=== PATIENT | male | born 1960 | race Caucasian/White ===

== ENCOUNTER 2023-12-26 01:51 | Outpatient (CLI) | payer MEDICARE, BC, SELFPAY ==
--- NOTE | 2023-12-26 07:15 | DI.RAD_ITS ---
Exam(s) XR SHOULDER RT COMPLETE 2+V EXAM: XR SHOULDER RT COMPLETE 2+V CLINICAL HISTORY: Check for AC separation,shoulder injury,[id number]. TECHNIQUE: 2D digital imaging was performed. COMPARISON: No exams were available for comparison FINDINGS: Four views Evidence of acute fracture or dislocation or abnormal soft tissue calcifications. There are mild-mod erate degenerative changes in the AC joint. Mild diminution of the subacromial space. There are min imal degenerative changes in the glenohumeral joint. No osteophytes. Bone density normal. No osseo us lesions. Bone density normal. No osseous lesions. IMPRESSION: Mild degenerative changes as above. DATA REPOSITORY: RADIATION DOSE DELIVERED:
== END 2023-12-26 02:11 ==
LOC: DI 01:52
PROVIDERS: PCP Family Medicine; Visit Provider Family Medicine
DX: S49.91XA Unspecified injury of right shoulder and upper arm, initial encounter (principal); X58.XXXA Exposure to other specified factors, initial encounter
CPT/HCPCS: 73030

== ENCOUNTER 2024-02-28 16:35 | Outpatient (REF) | payer MEDICARE, BC, SELFPAY ==
--- OUTSIDE RECORDS SUMMARY | 2024-02-28 16:39 | XMS_ITS | Encounter Summary ---
Author Organization [facility] Address [address] [place] [address] Care Team Providers Care Cottage Parent Name Role Phone Jason Batres MD Primary Care Provi margarita Alexus De La O RN Unavailable Unavailable Reason for Visit * Reason Onset Date Comments Appointment Related 06/18/2023 Encounter Details Date Type Department Care Team (Late st Contact Info) Description 06/18/2023 Telephone [facility] - [address] [address] Elie Betancourt DPM [address] [place] [phone] Appointment Related Social History Tobacco Use Types Packs/Day Years Used Date Smoking Tobacco: Never Smokeless Tobacco: Former Chew Alcohol Use Standard Drinks/Week Comments No 0 (1 standard drink = 0.6 oz pur e alcohol) Overall Financial Resource Strain (CARDIA) Answe r Date Recorded How hard is it for you to pa y for the very basics like food, housing, medical care, and heating? Not very hard 05/02/2022 PHQ-2 Answer Date Recorded PHQ-2 SUBTOTAL 1 10/04/2019 Hunger Vital Sign Answer Date Recorded Within the past 12 months, y ou worried that your food would run out before you got the money to buy more. Never true 05/02/19 23 Within the past 12 months, t he food you bought just didn't last and you didn't have money to get more. Never true 05/02/2022 PRAPARE - Transportation Answer Date Re corded In the past 12 months, has l ack of transportation kept you from medical appointments or from getting medications? No 04/06 In the past 12 months, has l ack of transportation kept you from meetings, work, or from getting things needed for daily living? No 05/02/2022 Housing Stability Vital Sign Answer Khadar e Recorded In the last 12 months, was t here a time when you were not able to pay the mortgage or rent on time? No 05/02/2022 In the last 12 months, how many places have you lived? 3 05/02/2022 In the last 12 months, was t here a time when you did not have a steady place to sleep or slept in a alf (including now)? No 05/02/2022 Interpersonal Safety Answer Date Record ed Physically Hurt Never 10/05/2019 Verbally Threaten Not on file 10/05/2019 Sex and Gender Information Value Date Recorded Sex Assigned at Male 06/12/2023 11:45 EDT Legal Sex Male 18:05 EST Gender Identity Male 10/03/2019 21:06 EDT Sexual Orientation Straight 06/12/2023 11 :45 EDT documented as of this encounter Functional Status * Are you deaf or do you have serious difficulty hearing? Answer Date of Assessment Author No 11/20/2021 20:00 Chelsea Kwon RN * Are you blind or do you have serious difficulty seeing, even when wearing glasses? Answer Date of Assessment Author No 11/20/2021 20:00 Chelsea Kwon RN * Do you have serious difficulty walking or climbing stairs? (5 years old or older) Answer Date of Assessment Author Yes 11/20/2021 20:00 Chelsea Kwon RN * Do you have difficulty dressing or bathing? (5 years old or older) Answer Date of Assessment Author Yes 11/20/2021 20:00 Chelsea Kwon RN * Because of a physical, mental, or emotional condition, do you have difficulty doing errands alone such as visiting a doctor's office or shopping? (15 years old or older) Answer Date of Assessment Author Yes 11/20/2021 20:00 EDT Chelsea Nair, RN documented as of this encounter Mental Status * Because of a physical, mental, or emotional condition, do you have serious difficulty concentrating, remembering, or making decisions? (5 years old or older) Answer Entry Date Author No 11/20/2021 20:00 EDT Chelsea Nair RN documented in this encounter Miscellaneous Notes * Telephone Encounter - Leslie Padilla RN - 06/18/2023 0953 EDT Spoke with patient. Appointment scheduled. * Telephone Encounter - Marjorie Mason - 06/18/2023 0832 EDT Reason for Call: Appointment Related Summary: Patient scheduled for a f/u left foot ulcer today he needs a couple day notice for transportation service needs his apt today r/s Appointment Offered? No Marjorie Mason 06/18/2023 8:32 documented in this encounter Plan of Treatment Not on file documented as of this encounter Visit Diagnoses Not on filedocumented in this encounter Care Teams Cottage Parent Relationship Specialty Start Date End Date Jason Batres MD [address] [place] [address] PCP - General 07/27/11 12/31/23 Alexus De La O, electro mechanical engineer 04/18/22 08/13/23 documented as of this encounter
--- OUTSIDE RECORDS SUMMARY | 2024-02-28 16:39 | XMS_ITS | Encounter Summary ---
Author Organization [facility] Address [address] [place] [address] Care Team Providers Care Three Knife Trimmer Name Role Phone Jason Batres MD Primary Care Provi margarita Reason for Visit * Reason Comments Follow-up Right BKA Encounter Details Date Type Department Care Team (Latest Contact Info) Description 12/07/2023 11:00 EDT Office Visit [facility] Physical Medicine & Rehabilitation [place] [address] Arianne Gonzalez MD [address] [place] [phone] Below-knee amputation of right lower extremity, subsequent encounter ([facility] (Primary Dx); Wound of right lower extremity, subsequent encounter Social History Tobacco Use Types Packs/Day Years [...] the money to buy more. Never true 02/28/20 23 Within the past 12 months, t [...] place to sleep or slept in a detention (including now)? No 05/02/2022 Interpersonal Safety Answer [...] Assessment Author Yes 11/20/2021 20:00 EDT Chelsea Nair RN documented as of this encounter Mental Status * Because of a physical, mental, or emotional condition, do you have serious difficulty concentrating, remembering, or making decisions? (5 years old or older) Answer Entry Date Author No 11/20/2021 20:00 EDT Chelsea Nair RN documented in this encounter Progress Notes * Arianne Gonzalez MD - 12/07/2023 1100 EDT Jeff Castillo Tyler Date of Visit: 12/07/2023 Chief Complaint Patient presents with Follow-up Right BKA HPI: Jeff returns for wound check. He was last seen in this clinic on 10/18/2023, and unfortunately missed an appointment on 11/15/2023. Today he reports that he has continued to minimize wear of his prosthesis, putting it on today for van transfers only. He had often preferred to wear it for bipedal pushoff in his wheelchair, but has been avoiding that as well, finding one foot generally adequate, even for navigating steep hills near his apartment, which he tries to do daily for exercise. He otherwise feels well today without acute issues or concerns. 12pt review of systems was completed and negative except as above. PMH, PSH, SH, FH reviewed in medical record. Current Outpatient Medications on File Prior to Visit Medication Sig Dispense Refill acetaminophen (TYLENOL) 500 mg tablet Take 2 Tablets by mouth every 6 hours. 240 Tablet 0 apixaban (ELIQUIS) 5 mg tablet Take 1 Tablet by mouth 2 times daily. 180 Tablet 3 atorvastatin (LIPITOR) 20 mg tablet Take 1 Tablet by mouth daily. 90 Tablet 3 bisacodyL (DULCOLAX) [address] 1 Suppository rectally as needed for Constipation. 30 Each 0 blood glucose (FREESTYLE TEST) test strips 1 Strip by misc (non-drug; combo route) route 3 times daily. 100 Each 0 blood glucose meter (FREESTYLE FREEDOM LITE) Test FS BID. 1 Each 0 blood glucose test strips 1 Strip by misc (non-drug; combo route) route 4 times daily. One touch verio flex 100 Each 2 cholecalciferol, Vitamin D3, 50 mcg (2,000 unit) tablet Take 1 Tablet by mouth at bedtime. 30 Tablet 0 clotrimazole (LOTRIMIN) 1 % cream Apply to affected area BID until resolved 45 g 1 fluocinonide (LIDEX) 0.05 % cream Apply to affected area on chest BID x 2 weeks 30 g 0 FREESTYLE FREEDOM LITE Use as directed as needed (glucose monitoring). 1 Each 0 gabapentin (NEURONTIN) 300 mg capsule Take 1 Capsule by mouth 3 times daily. 270 Capsule 3 insulin aspart U-100 (NOVOLOG FLEXPEN) 100 unit/mL (3 mL) injectable pen Inject 18 Units into the skin 3 times daily with meals. 15 mL 11 insulin glargine 100 unit/mL (3 mL) injection pen Inject 55 Units into the skin at bedtime. 15 mL 11 insulin pen needles 31G x 5/16 Use as directed daily 100 Each 3 lancets Test BID 100 Each 1 levothyroxine (SYNTHROID) 112 mcg tablet Take 1 Tablet by mouth daily. 90 Tablet 3 losartan (COZAAR) 25 mg tablet Take 1 Tablet by mouth daily. 90 Tablet 3 magnesium oxide (MAG-OX) 400 mg (241.3 mg magnesium) tablet Take 1 Tablet by mouth daily. 30 Tablet0 metFORMIN (GLUCOPHAGE) 500 mg tablet TAKE TWO TABLETS BY MOUTH TWICE DAILY WITH BREAKFAST AND DINNER 120 Tablet 2 methocarbamoL (ROBAXIN) 500 mg tablet Take 1 Tablet by mouth every 8 hours as needed for Pain or Muscle Spasms. 90 Tablet 3 oxyCODONE (ROXICODONE) 5 mg immediate release tablet Take 1 Tablet by mouth 2 times daily as neededfor Pain. Daily Max: 10 mg 10 Tablet 0 pantoprazole (PROTONIX) 40 mg tablet Take 1 Tablet by mouth daily before breakfast. 90 Tablet 3 sertraline (ZOLOFT) 50 mg tablet Take 1 Tablet by mouth daily. 90 Tablet 3 TAMSulosin (FLOMAX) 0.4 mg capsule Take 1 Capsule by mouth daily. 30 Capsule 2 No current facility-administered medications on file prior to visit. No Known Allergies EXAM: General: Well-nourished and well developed. No acute distress. HEENT: NCAT, eyelids and conjunctiva normal, external ears normal, normal hearing to voice Resp: Normal respiratory rhythm and depth Skin: R TTA with well-adhered eschar over distal callus. Clean, dry, without discharge or drainage.Remainder of residual limb skin intact. Psych: Appropriate affect MSK/Neuro: R TTA nontender. Circumference 36cm over widest distal margin, 37cm over patellar tendon. Short-term memory loss. Seated in manual WC, not wearing prosthesis. Gait not assessed. ASSESSMENT/PLAN: Jeff is a 62-year-old male s/p R TTA 12/29/2020 for chronic osteomyelitis in the setting of type 2diabetes mellitus who has a slowly healing distal residual limb wound, now closed with a small but centrally well-adhered eschar. He should continue to avoid use of the prosthesis as much as possibleuntil the eschar falls off and the skin beneath is fully healed. He is making good progress. Anticipate the eschar could fall off within 1-2 weeks. Will plan to follow-up in this clinic in approximately 3 weeks, sooner if new questions or concerns arise. Patient indicated understanding and agreement with plan. All questions answered. I spent a total of 40 minutes in the care of this patient on the date of this encounter including review of medical records, history, evaluation, counseling, coordination of care, and documentation. Arianne Gonzalez MD Physical Medicine and Rehabilitation documented in this encounter Plan of Treatment Not on file documented as of this encounter Visit Diagnoses Diagnosis Below-knee amputation of right lower extremity, subsequent encounter ([facility])- Primary Wound of right lower extremity, subsequent encounter documented in this encounter Care Teams Three Knife Trimmer Relationship Specialty Start Date End Date Jason Batres MD [address] [place] [id number] PCP - General 07/27/11 12/31/23 documented as of this encounter
--- OUTSIDE RECORDS SUMMARY | 2024-02-28 16:39 | XMS_ITS | Encounter Summary ---
Author Organization [facility] Address [address] [place] [address] Care Team Providers Care University Relations Recruiter Name Role Phone Jason Batres MD Primary Care Provi margarita Alexus De La O RN Unavailable Unavailable Reason for Visit * Reason Onset Date Comments Medications Refill 07/16/2023 Encounter Details Date Type Department Care Team (Late st Contact Info) Description 07/16/2023 Refill Terry Batres MD [address] [phone] Constance Briones, RN Medications Refill Social History Tobacco Use Types Packs/Day Years [...] place to sleep or slept in a half-way (including now)? No 05/02/2022 Interpersonal Safety Answer [...] Author Yes 11/20/2021 20:00 Chelsea Kwon RN documented as of this encounter Mental Status * Because of a physical, mental, or emotional condition, do you have serious difficulty concentrating, remembering, or making decisions? (5 years old or older) Answer Entry Date Author No 11/20/2021 20:00 EDT Chelsea Nair RN documented in this encounter Ordered Prescriptions Prescription Sig Dispense Quantity Refills Last Filled Start Date End Date insulin pen needles 31G x 5/16 Use as directed daily 100 Each 3 07/16/2023 documented in this encounter Plan of Treatment Not on file documented as of this encounter Visit Diagnoses Not on filedocumented in this encounter Care Teams University Relations Recruiter Relationship Specialty Start Date End Date Jason Batres MD [address] [place] [address] PCP - General 07/27/11 12/31/23 Alexus De La O, videotape editor 04/18/22 08/13/23 documented as of this encounter
--- OUTSIDE RECORDS SUMMARY | 2024-02-28 16:39 | XMS_ITS | Encounter Summary ---
Author Organization [facility] Address [address] [place] [address] Care Team Providers Care Diver Helper Name Role Phone Jason Batres MD Primary Care Provi margarita Reason for Visit * Reason Comments Follow-up RIGHT BKA Encounter Details Date Type Department Care Team (Latest Contact Info) Description 09/27/2023 13:00 EDT Office Visit [facility] Physical Medicine & Rehabilitation - [address] [address] Arianne Gonzalez MD [address] [place] [phone] Below-knee amputation of right lower extremity, subsequent encounter ([facility]) (Primary Dx); Wound of right lower extremity, initial encounter Social History Tobacco Use Types Packs/Day [...] place to sleep or slept in a snf (including now)? No 05/02/2022 Interpersonal Safety Answer [...] Date of Assessment Author Yes 11/20/2021 20:00 EDChelsea Martinez RN documented as of this encounter Mental Status * Because of a physical, mental, or emotional condition, do you have serious difficulty concentrating, remembering, or making decisions? (5 years old or older) Answer Entry Date Author No 11/20/2021 20:00 Chelsea Kwon RN documented in this encounter Progress Notes * Ion Aguila - 09/27/2023 1300 EDT Jeff Scott Date of Visit: 09/27/2023 Chief Complaint Patient presents with Follow-up RIGHT BKA HPI: Jeff is a 62 y.o. male with PMHx of right TTA in 12/2020 due to chronic osteomyelitis, T2DM, and left total hip arthroplasty in 02/2022, returns for right TTA follow up. He was last seen in this clinic on 03/20/2023. His educational interpreter, Elbert Macias of [facility], is present for today's visit. Today, Jeff complains of worsening right residual limb pain that feels like soreness at a 3/10 in severity. He states this pain is worsened with palpation and using his RLE prosthesis to walk. He reports that he has been checking his right residual limb for wounds twice a day and has noticed some discoloration at the distal end of the limb. He notes that he has been washing his prosthesis liner every 3-4 days. He also mentions that he has been wearing more sock layers to fit his prosthesis socket with 10 layers today but this has not improved his soreness. He has been increasing his activitywith walking and regularly following PT exercises but his RLE soreness has limited his activity forthe past 1.5 weeks. He denies lightheadedness, recent falls, new muscle weakness, numbness, tingling, or upper extremity symptoms. Jeff states that he is settling into his new living situation in [facility]. Patient mentions his neighbor provided transportation to this visit. He notes that he has been independent in hisADLs but has some issues with taking out the trash due to stairs outdoors. He mentions that his RLEprosthesis has been feeling loose and he requests a new foot to assist with his increased activity.His rod finisher states that Jeff currently has a temporary SACH foot because his K2 foot was broken when he received his new socket in the spring. PMH, PSH, FH, SH reviewed in medical record. Current Outpatient Medications [...] file prior to visit. No Known Allergies ROS: 12pt ROS was completed and negative except as noted above. EXAM: General: Well-nourished and well developed. No acute distress. HEENT: NCAT, eyelids and conjunctiva normal, external ears normal, normal hearing to voice CV: No LLE edema Resp: Normal respiratory rhythm and depth Psych: Appropriate affect, cooperative MSK: R TTA circumference 36cm over widest distal margin (38.3cm on 03/20/2023), 37cm over patellar tendon (38.5cm on 03/20/2023). Uneven gait with RLE prosthesis and walking stick/trekking pole in lefthand. Normal muscle bulk and tone to BLE. LLE decreased ROM with hip flexion otherwise FROM to kneeextension and flexion. LLE strength 4/5 to hip flexion, 5/5 to knee flexion, 5/5 to knee extension,4/5 to dorsiflexion, and 5/5 to plantarflexion. RLE FROM with hip flexion, knee extension, and kneeflexion. RLE 5/5 R hip flexion, knee flexion/extension. Doffs prosthesis independently without difficulty. Wearing 10 ply socks. Skin: Right residual limb open wound approximately 1 cm with surrounding area of callous. Malodorous with small amount of bloody drainage. No pus or exudate. Neuro: Speech fluent and clear. Able to maintain appropriate conversation. Confusion noted with short term memory loss. Oriented x3. ASSESSMENT/PLAN: Jeff is a 62-year-old male with PMHx s/p R TTA 12/29/2020 for chronic osteomyelitis in the settingof T2DM with recurrent distal residual limb open wound. Recommend that he refrains from wearing theprosthesis as much as possible for the next 1-2 weeks to encourage wound healing. Encouraged patient to primarily use wheelchair for mobility and leave RLE wound open to air when possible. Gave patient a box of Mepilex bandages to cover RLE wound in event of traveling outdoors. Follow up in this office in 2-3 weeks for wound assessment. Recommend replacement socket with pin lock suspension for improved fit to right residual limb afterRLE decreased in size. Also recommend updating to K3 foot from current temporary SACH foot due to increased activity and mobility. Discussed changes with Elbert Macias of [employer]. A new socket is medically required to optimize fit, comfort, mobility, and skin health/protection in this patient. With full resolution of skin wound, the prosthesis will be required for indefinite daily use to promote independence and safety. Orders placed for total RLE prosthesis replacement with updated foot. Patientwill follow up with [facility] for new casting in 1 week which will double as a wound check visit. Di scussed possibility of virtual visit for wound check but patient does not have appropriate technology for virtual follow up with no computer at home and no smart-phone. Patient indicated understanding and agreement with plan. All questions answered. Ion Aguila MS-4 Available on [employer] 09/27/23 16:00 Attending Statement: I evaluated the patient with the medical student and agree with the above note with minor edits made by me. Prescription provided for replacement prosthesis and supplies to allow for casting and fabrication over the next few weeks while wound is healing, but he is to remain out of the prosthesis asmuch as possible until the wound heals. He will see Elbert for casting in the next 1-2 weeks, which will also serve as a wound check given no ability for Jeff to share photos or engage in a televideo visit, and transportation from [facility] is a significant challenge at this time. Will plan to follow-up in this clinic in 2-3 weeks for wound check and hopefully clearance to return to wearing the prosthesis. He may certainly call sooner with any new issues or concerns. I spent a total of 45 minutes in the care of this patient today including review of medical records, history, evaluation, counseling, coordination of care, and documentation. Arianne Gonzalez MD documented in this encounter Plan of Treatment Not on file documented as of this encounter Visit Diagnoses Diagnosis Below-knee amputation of right lower extremity, subsequent encounter ([facility])- Primary Wound of right lower extremity, initial encounter documented in this encounter Orders Equipment Count Last Ordered Date First Orde red Date GENERIC DME ORDER 1 09/27/2023 documented in this encounter Care Teams Diver Helper Relationship Specialty Start Date End Date Jason Batres MD [address] [place] [address] PCP - General 07/27/11 12/31/23 documented as of this encounter
--- OUTSIDE RECORDS SUMMARY | 2024-02-28 16:39 | XMS_ITS | Encounter Summary ---
Author Organization [facility] Address [address] [place] [address] Care Team Providers Care Tooth Clerk Name Role Phone Jason Batres MD Primary Care Provi margarita Alexus De La O RN Unavailable Unavailable Reason for Visit * Reason Onset Date Comments Medications Refill 07/13/2023 Encounter Details Date Type Department Care Team (Late st Contact Info) Description 07/13/2023 Refill Terry Batres MD [address] [address] Jason Batres MD [address] [place] [phone] Medications Refill Social History Tobacco Use Types [...] place to sleep or slept in a correction (including now)? No 05/02/2022 Interpersonal Safety Answer [...] Date of Assessment Author No 11/20/2021 20:00 EDT Chelsea Nair RN * Are you blind or do [...] Date Author No 11/20/2021 20:00 EDT Chelsea Nair, RN documented in this encounter Ordered Prescriptions Prescription Sig Dispense Quantity Refills Last Filled Start Date End Date insulin aspart U-100 (NOVOLOG FLEXPEN) 100 unit/mL (3 mL) injectable pen Inject 18 Units into the skin 3 times daily with meals. 15 mL 11 07/13/2023 insulin glargine 100 unit/mL (3 mL) injection pen Inject 55 Units into the skin at bedtime. 15 mL 11 07/13/2023 documented in this encounter Miscellaneous Notes * Telephone Encounter - Mena Gomez - 07/13/2023 1538 EDT refills documented in this encounter Plan of Treatment Not on file documented as of this encounter Visit Diagnoses Diagnosis Type 2 diabetes mellitus with other specified complication, with long-term current use of insulin ([facility])- Primary documented in this encounter Discontinued Medications Medication Sig Discontinue Reason Start Date End Da te insulin aspart U-100 (NOVOLOG FLEXPEN) 100 unit/mL (3 mL) injectable pen Inject 18 Units into the skin 3 times daily with meals. Reorder 03/19/2023 07/13/2023 insulin glargine (LANTUS SOLOSTAR/SEMGLEE) 100 unit/mL (3 mL) injection pen Inject 55 Units into the skin at bedtime. Reorder 03/19/2023 07/13/2023 documented as of this encounter Orders Equipment Count Last Ordered Date First Orde red Date GENERIC DME ORDER 1 07/13/2023 documented in this encounter Care Teams Tooth Clerk Relationship Specialty Start Date End Date Jason Batres MD [address] [place] [id number] PCP - General 07/27/11 12/31/23 Alexus De La O, target protection specialist 04/18/22 08/13/23 documented as of this encounter
--- OUTSIDE RECORDS SUMMARY | 2024-02-28 16:39 | XMS_ITS | Clinical Summary ---
Author Organization [facility] Address [address] [place] [address] Care Team Providers Care Staging Technician Name Role Phone [facility] Internal Medicine, Primary Care Provi margarita Allergies No known active allergies Medications blood glucose meter (FREESTYLE FREEDOM LITE) Test FS BID. 1 Each 0 4 Active FREESTYLE FREEDOM LITE Use as directed as needed (glucose monitoring). 1 Each 8 Active acetaminophen (TYLENOL) 500 mg tablet Take 2 Tablets by mouth every 6 hours. 240 Tablet 3 Active bisacodyL (DULCOLAX) [address] 1 Suppository rectally as needed for Constipation. 30 Each 3 Active cholecalciferol, Vitamin D3, 50 mcg (2,000 unit) tablet Take 1 Tablet by mouth at bedtime. 30 Tablet 3 Active magnesium oxide (MAG-OX) 400 mg (241.3 mg magnesium) tablet Take 1 Tablet by mouth daily. 30 Tablet 3 Active blood glucose test strips 1 Strip by misc (non-drug; combo route) route 4 times daily. One touch verio flex 100 Each 2 3 Active blood glucose (FREESTYLE TEST) test strips 1 Strip by misc (non-drug; combo route) route 3 times daily. 100 Each 3 Active oxyCODONE (ROXICODONE) 5 mg immediate release tablet Take 1 Tablet by mouth 2 times daily as needed for Pain. Daily Max: 10 mg 10 Tablet 3 Active clotrimazole (LOTRIMIN) 1 % cream Apply to affected area BID until resolved 45 g 1 3 Active TAMSulosin (FLOMAX) 0.4 mg capsule Take 1 Capsule by mouth daily. 30 Capsule 2 3 Active gabapentin (NEURONTIN) 300 mg capsule Take 1 Capsule by mouth 3 times daily. 270 Capsule 3 3 Active lancets Test BID 100 Each 1 3 Active methocarbamoL (ROBAXIN) 500 mg tablet Take 1 Tablet by mouth every 8 hours as needed for Pain or Muscle Spasms. 90 Tablet 3 3 Active metFORMIN (GLUCOPHAGE) 500 mg tablet TAKE TWO TABLETS BY MOUTH TWICE DAILY WITH BREAKFAST AND DINNER 120 Tablet 2 3 Active losartan (COZAAR) 25 mg tablet Take 1 Tablet by mouth daily. 90 Tablet 3 4 Active apixaban (ELIQUIS) 5 mg tablet Take 1 Tablet by mouth 2 times daily. 180 Tablet 3 4 Active atorvastatin (LIPITOR) 20 mg tablet Take 1 Tablet by mouth daily. 90 Tablet 3 4 Active levothyroxine (SYNTHROID) 112 mcg tablet Take 1 Tablet by mouth daily. 90 Tablet 3 4 Active sertraline (ZOLOFT) 50 mg tablet Take 1 Tablet by mouth daily. 90 Tablet 3 4 Active pantoprazole (PROTONIX) 40 mg tablet Take 1 Tablet by mouth daily before breakfast. 90 Tablet 3 4 Active fluocinonide (LIDEX) 0.05 % cream Apply to affected area on chest BID x 2 weeks 30 g 4 Active insulin glargine 100 unit/mL (3 mL) injection pen Inject 55 Units into the skin at bedtime. 15 mL 11 4 Active insulin aspart U-100 (NOVOLOG FLEXPEN) 100 unit/mL (3 mL) injectable pen Inject 18 Units into the skin 3 times daily with meals. 15 mL 11 4 Active insulin pen needles 31G x 5/16 Use as directed daily 100 Each 3 4 Active Active Problems Patient Care Coordination No te Formatting of this note migh t be different from the original. Patient has given permission for the [facility] to verbally discuss the following information with Nguyen Scott who has the following relationship to the patient: Spouse/Partner: Scheduling/Appt/Billing/Payment Information (does not include clinical information unless specifically indicated with separate option) Medical Information including symptoms, diagnosis, medications, test results and treatment plan (does not include Mental Health unless specifically indicated with separate option) Permission remains in effect until the patient elects to revoke it. Problem Noted Date Diagnosed Date Status post total replacement of left hip 2022 Recurrent falls 11/20/2021 Failure to thrive in adult 11/20/2021 Hx of BKA, right ([facility]) 11/20/2021 Chronic deep vein thrombosis (DVT) of proximal vein of left lower extremity ([facility]) 11/20/2021 Hypothyroidism, unspecified type 11/20/2021 Gastroesophageal reflux dise ase with esophagitis and hemorrhage 11/20/2021 Benign prostatic hyperplasia , unspecified whether lower urinary tract symptoms present 11/20/2021 Other chronic pain 11/20/2021 Deep vein thrombosis (DVT) o f proximal vein of left lower extremity, unspecified chronicity ([facility]) 12/23/2020 Type 2 diabetes mellitus wit hout complication, with long-term current use of insulin ([facility]) 12/23/2020 Chronic osteomyelitis of rig ht foot with draining sinus ([facility]) 12/22/2020 Overview (12/28/2020): Added automatically from request for surgery [id number] Acute osteomyelitis of right ankle or foot ([facility]) 10/03/2019 Overview (10/07/2019): Added automatically from request for surgery [id number] Hyperplastic polyp of descending colon 9 Type 2 diabetes mellitus wit h diabetic polyneuropathy, with long-term current use of insulin ([facility]) 06/24/2018 Acute osteomyelitis of phalanx of foot ([facility]) 03/23/2016 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 (01/22/2013): From brain surgery, carniopharyngioma Hypothyroidism 01/22/2013 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 (01/22/2013): resected 09/06/06 Late effect of intracranial injury ([facility]) Overview (12/20/2014): IMO Update Auto Replacement Gait instability Adjustment disorder with mixed anxiety and depre ssed mood Anemia Resolved Problems Problem Noted Date Diagnosed Date Resolved Date Primary osteoarthritis of left hip 11/20/2021 05/02/2022 Osteoarthritis of left hip, unspecified osteoarthritis type 11/20/2021 05/02/2022 Ketoacidosis 12/23/2020 01/21/2021 Diabetic foot infection ([facility]) 10/04/2019 01/21/2021 Osteoarthritis of left hip 07/06/2014 0 05/02/2022 Encounters Date Type Department Care Team Description 01/01/2024 11:30 EDT Office Visit [facility] Physical Medicine & Rehabilitation [address] [place], [place] [id number] Arianne Gonzalez MD Below-knee amputation of right lower extremity, subsequent encounter ([facility]) (Primary Dx) 12/07/2023 11:00 EDT Office Visit [facility] Physical Medicine & Rehabilitation [address] [place], [place] [id number] Arianne Gonzalez MD Below-knee amputation of right lower extremity, subsequent encounter ([facility]) (Primary Dx); Wound of right lower extremity, subsequent encounter from Last 3 Months Immunizations Name Administration Dates Next Due Covid-19 mRNA Vaccine (PFIZE R COVID-19) PF 0.3 ml IM (12 yrs+) 10/21/2021,06/16/2020,05/26/2020 Influenza (whole) 01/08/2007 Influenza Vaccine Quad PF 0. 5 ml IM (6 mos+) 12/05/2021,01/21/2021(Deferred: - Pt states, will take it at the Rehab) Tdap Vaccine =>7YO IM 01/08/2018 Surgical History Surgery Date Site/Laterality Comments BRAIN SURGERY s/p tumor EYE SURGERY FOOT SURGERY 03/23/2016 Right Right partial 2nd toe amputation FOOT SURGERY 10/05/2019 Right I&D, amputation 2nd & 3rd James calvillo Medical History Medical History Date Comments Wears glasses Arthritis Back pain Diabetes mellitus (HCC-CMS) Hypothyroidism Anemia Family History Medical History Relation Comments Cancer Father lung cancer Stroke Mother Colon Cancer Neg Hx Relation Status Comments Father Mother Social History Tobacco Use Types Packs/Day Years Used Date Smoking Tobacco: Never Smokeless Tobacco: Former Chew Tobacco Cessation:Counseling Given: Not Answered Alcohol Use Standard Drinks/Week Comments No 0 [...] place to sleep or slept in a custodial (including now)? No 05/02/2022 Interpersonal Safety Answer Date Record ed Physically Hurt Never 10/05/2019 Verbally Threaten Not on file 10/05/2019 Sex and Gender Information Value Date Recorded Sex Assigned at Male 06/12/2023 11:45 EDT Legal Sex Male 18:05 EST Gender Identity Male 10/03/2019 21:06 EDT Sexual Orientation Straight 06/12/2023 11 :45 EDT Obstetrics History Last Filed Vital Signs Vital Sign Reading Time Taken Comments Blood Pressure 96/60 10/05/2022 1038 EDT Pulse 128 10/05/2022 1038 EDT Temperature 36.6 ??C (97.9 ??F) 10/05/2022 1038 EDT Respiratory Rate 17 05/14/2022 2300 EDT Oxygen Saturation 95% 10/05/2022 1038 EDT Inhaled Oxygen Concentration - - Weight 128.8 kg (284 lb) 10/05/2022 1038 EDT Height 188 cm (6' 2) 05/14/2022 1530 EDT Body Mass Index 36.46 05/14/2022 1530 EDT Plan of Treatment Health Maintenance Due Date Last Done Comments Foot Exam 1961 Pneumococcal Immunization (1 of 2 - PCV) 12/14/1967 HIV Screening 1977 Preventive Care Visit 12/14/1979 Cologuard (Colon Cancer Screening) 2006 FIT Test (Colon Cancer Screening) 2006 Sigmoidoscopy (Colon Cancer Screening) 2006 Shingles Immunization (1 of 2) 12/14/2011 Eye Exam 09/03/2018 09/03/2017 Microalbumin/Creatinine Ratio 01/17/2019 01/17/2018 Depression Screening 10/02/2020 10/03/2019 [place] Prescription Monitor ing System 09/21/2021 09/21/2020 RSV Immunization ( o r 60+ Years) (1 - Risk 60-74 years 1-dose series) 2021 Hemoglobin A1C (Ha1C) 04/07/2023 10/05/2022 , 10/05/2022, 03/16/2022, Additional history exists Social Determinants Of Healt h (SDOH) 05/02/2023 05/02/2022, 05/02/2022 Lipid Profile Screening (Cholesterol) 10/06/2023 10/05/2022, 05/20/2020, 01/17/2018, Additional history exists COVID-19 Vaccine (4 - 2023-2 5 season) 2023 10/21/2021, 06/16/2020, 05/26/2020 Influenza Immunization (Adul t) (#1) 2023 12/05/2021, 01/08/2007 Tetanus (Adult) Immunization 01/09/2028 01/08/2018 Colonoscopy (Colon Cancer Screening) 07/30/2028 07/30/2018 Colorectal Cancer Screening 07/30/2028 Hepatitis C Screen Completed 02/17/2016 Pertussis (Adult) Immunization Completed 01/08/2018 Medical Devices Implanted Type Area Measurement Department Chief Clerk Device Identifier Shelf Expiration Date Model / Serial / Lot Cable Fixation Hip 2.0mm Dall Miles [id number] - [id number] Implanted:Qty : 1 on 02/13/2022 by Sachin Burroughs MD MSc FRCSC at [facility] Ortho Implant Left: Hip [facility] [id number] 12/20/2026 [id number] / / [id number] Screw Bone Acetabular Full Thread Canc Sphr Hd 6.5x15mm Reflection [id number] - [id number] Implanted:Qty : 1 on 02/13/2022 by Sachin Burroughs MD MSc FRCSC at [facility] Screw Implant Left: Hip [employer] [id number] 02/18/2028 [id number] / / [id number] Screw Bone Acetabular Full Thread Canc Sphr Hd 6.5x15mm Reflection [id number] - [id number] Implanted:Qty : 1 on 02/13/2022 by Sachin Burroughs MD MSc FRCSC at [facility] Screw Implant Left: Hip [employer] [id number] 05/06/2028 [id number] / / [id number] Screw Bone Acetabular Full Thread Canc Sphr Hd 6.5x20mm Reflection [id number] - [id number] Implanted:Qty : 1 on 02/13/2022 by Sachin Burroughs MD MSc FRCSC at [facility] Screw Implant Left: Hip [employer] [id number] 10/04/2031 [id number] / / [id number] Stem Lateral Ti/[place] 9 With Collar [employer] - [id number] Implanted:Qty : 1 on 02/13/2022 by Sachin Burroughs MD MSc FRCSC at [facility] Spinal Implant Left: Hip [employer] 03/10/2026 [id number] / / [id number] Shell Acet Hip Porous Ti 3h 64mm R3 [id number] - [id number] Implanted:Qty : 1 on 02/13/2022 by Sachin Burroughs MD MSc FRCSC at [facility] Total Joint Implant Left: Hip [employer] [id number] 08/13/2031 [id number] / / [id number] Liner Mobility Dual Or30 50/64 - [id number] Implanted:Qty : 1 on 02/13/2022 by Sachin Burroughs MD MSc FRCSC at [facility] Total Joint Implant Left: Hip [employer] [id number] 08/21/2030 [id number] / / [id number] Insert Xlpe Dm Or30 28/50 - [id number] Implanted:Qty : 1 on 02/13/2022 by Sachin Burroughs MD MSc FRCSC at [facility] Total Joint Implant Left: Hip [employer] [id number] 10/30/2030 [id number] / / [id number] Hip Femoral Head Zr 28mm Oxinium [id number] - [id number] Implanted:Qty : 1 on 02/13/2022 by Sachin Burroughs MD MSc FRCSC at [facility] Total Joint Implant Left: Hip [employer] [id number] 10/19/2030 [id number] / / [id number] Procedures Procedure Name Priority Date/Time Associated Diagnosis Comments LIPID PROFILE (INCLUDES CHOLESTEROL, TRIGLYCERIDES, HDL, LDL) Routine 10/05/2022 16:28 EDT Type 2 diabetes mellitus without complication, with long-term current use of insulin ([facility]) POCT HEMOGLOBIN A1C Routine 10/05/2022 Type 2 diabetes mellitus without complication, with long-term current use of insulin ([facility]) COLONOSCOPY PROCEDURE Routine 07/30/2018 URINE [id number] E RATIO (ACR) Routine 01/17/2018 9:04 EST Type 2 diabetes mellitus with hyperglycemia, without long-term current use of insulin ([facility]) HEPATITIS C AB W REFLEX TO HCV RNA BY PCR Routine 02/17/2016 14:33 EST from Last 3 Months or Most Recently Relevant to Health Maintenance Results * (ABNORMAL) LIPID PROFILE (INCLUDES CHOLESTEROL, TRIGLYCERIDES, HDL, LDL) (10/05/2022 16:28 EDT) Cholesterol 241(H) <200 mg/dL 10/05/2022 19:12 [facility] Comment:Note that therapeuti c goals will differ between patients based on cardiac risk factors and current medical therapy. HDL 35(L) >=40 mg/dl 10/05/2022 19:12 [facility] Comment:Note that therapeuti c goals will differ between patients based on cardiac risk factors and current medical therapy. LDL, Calculated 19:12 [facility] Comment: Note that therapeutic goals will differ between patients based on cardiac risk factors and current medical therapy. Calculated LDL invalid, triglycerides >400 mg/dL Direct LDL measurement added by reflex. Triglyceride 411(H) <=150 mg/dL 10/05/2022 19:12 [facility] Comment:Note that therapeuti c goals will differ between patients based on cardiac risk factors and current medical therapy. Chol/HDL Ratio 6.9 See Note 10/05/2022 19:12 [facility] Comment:No reference range h as been established for CHOL/HDL ratio. Non HDL Cholesterol 206(H) <160 mg/dL 10/05/2022 19:12 [facility] Comment:Note that therapeuti c goals will differ between patients based on cardiac risk factors and current medical therapy. Blood VENOUS BLOOD / Unknown Venipuncture / Unknown 10/05/2022 16:28 EDT 10/05/2022 18:33 EDT us Jason Batres MD CHEMISTRY & BLOOD G ORDERABLES Final Result [facility] [address] [place] [address] * POCT HEMOGLOBIN A1C (10/05/2022) Hemoglobin A1c, POC >14 <=5.7 % [facility] POINT OF CARE Blood CAPILLARY BLOOD / Unknown 10/05/2022 Jason Batres MD POINT OF CARE TEST ORDERABLES Final Result [facility] POINT OF CARE * COLONOSCOPY PROCEDURE (07/30/2018) Anatomical Region Laterality Modality Endoscopy 07/30/2018 Narrative 07/30/2018 13:35 EDT Procedure Performed Colonoscopy Indications for Exam Screening Colonoscopy. Procedure Technique A physical exam was performed. Informed consent was obtained from the patient after explaining all the risks (perforation, bleeding, missed findings, injury to nearby organs, infection and adverse effects to the medicine), benefits and alternatives to the procedure which the patient appeared to understand and so stated. ??The patient was connected to the monitoring devices and placed in the left lateral position. Continuous oxygen was provided with a nasal cannula and IV medicine administered thru an indwelling cannula. After adequate sedation was achieved, a digital exam was performed and the colonoscope introduced into the rectum and advanced under direct visualization to the terminal ileum. ?? The terminal ileum was identified by visual landmarks. The endoscope was subsequently removed slowly while carefully examining the color, texture, anatomy, and integrity of the mucosa on withdrawal. Retroflexion was performed in the rectum: Yes. The patient was subsequently transferred to the recovery area in satisfactory condition. Rectal Exam:Normal Estimated Blood Loss: None Complications None Medications Versed 4 mg Fentanyl 150 mcg I was in continuous face to face attendance during the administration of moderate sedation services that were monitored by an independent trained observer who had no other duties during the procedure. ??Total sedation time was 26 ??minutes. [place] Bowel Prep Right Colon: 3 ? Transverse Colon: 3 ? Left Colon: 3 ?Total: 9 Findings Minimal diverticulosis from the sigmoid colon to the . 2 mm diminutive polyp in the rectum. Polypectomy performed with cold biopsy forcep. Polyp retrieved. Tiny internal hemorrhoids. Diagnosis Minimal diverticulosis from the sigmoid colon to the . 2 mm diminutive polyp in the rectum. Polypectomy performed with cold biopsy forcep. Polyp retrieved. Tiny internal hemorrhoids. Recommendations Follow biopsy results. Repeat colonoscopy in 5/10 years. Your blood sugar was 348 prior to ??the procedure - please follow up blood sugars as is your routine, follow up with Dr. Batres. This electronic signature authenticates all electronic and/or handwritten documentation, including orders, generated by the signer during the episode of care contained in this record. 07/30/2018 01:35:54 PM By Drew Grover MD us Drew Grover MD GI PROCEDURE ORDERABLES Final Re sult * ALBUMIN, URINE (01/17/2018 9:04 EST) Creatinine, Urn [place] 181.9 mg/dl 01/17/2018 16:56 EST [facility] Ur Albumin mg/dl 2.8 mg/dL 01/18/20 18 17:01 EST [facility] Comment:[employer]ing[employer] Vitros 5600 Meth odology in use 07/04/2017 Urine Albumin to Creatinine Ratio 15.4 ug/mg Crea 01/17/2018 17:01 EST [facility] Comment: Normal: <30 ug/mg creatinine Moderately increased albuminuria: 30-300 ug/mg creatinine Severly increased albuminuria: >300 ug/mg creatinine New Vitros 5600 Methodology in use 07/04/2017 Urine specimen (specimen) URINE / Unknown 01/17/2018 9:04 EST 01/17/2018 14:26 EST us Yesi Marie NP CHEMISTRY & BLOOD GAS ORDER ELIU Final Result [facility] [address] [place] [address] * HEPATITIS C ANTIBODY (02/17/2016 14:33 EST) Hep C Ab w Rfx PCR Negative Negative 02/18/2016 12:09 EST [facility] Comment:Reference Range: Neg ative BLOOD SPECIMEN / Unknown 02/17/2016 14:33 EST 02/17/2016 18:27 EST Jason Batres MD CHEMISTRY & BLOOD G ORDERABLES Final Result [facility] [address] [place] [address] from Last 3 Months or Most Recently Relevant to Health Maintenance Insurance MEDICARE ACO [place] [facility] [place] Advance Directives For more information, please contact: [phone] Documents on File Type Date Recorded Patient Icu Manager Expl anation Advance Directive 10/27/2022 12:56 [place] Adva nce Directive for Health Care - Signed Advance Directive 04/20/2022 7:01 POA-Sign ed COLST/MOLST 01/26/2021 16:11 DNR/COLST COLST/MOLST 10/21/2019 7:32 DN R/COLST * Full Code (Latest Code Status on File) Date Activated Date Inactivated Comments 02/13/2022 21:52 04/17/2022 16:37 Question Answer Comments When the patient has NO PULSE: Full Code / CPR Who Made the Decision? Default/Not Discussed * Full Code Date Activated Date Inactivated Comments 11/20/2021 19:54 02/13/2022 21:52 Question Answer Comments When the patient has NO PULSE: Full Code / CPR Who Made the Decision? Patient * Full Code Date Activated Date Inactivated Comments 12/23/2020 7:08 01/21/2021 12:24 Question Answer Comments When the patient has NO PULSE: Full Code / CPR Who Made the Decision? Patient * Full Code Date Activated Date Inactivated Comments 10/04/2019 12:39 10/05/2019 15:26 Question Answer Comments Reason for decision includes: Full code consistent with overall plan of care Who participated in the discussion? Not Discusse d * Full Code Date Activated Date Inactivated Comments 03/23/2016 17:00 03/23/2016 20:10 Question Answer Comments Reason for decision includes: Full code consistent with overall plan of care Who participated in the discussion? Not Discusse d Care Teams Staging Technician Relationship Specialty Start Date End Date [facility] Internal Medicine, [facility] [address] [place] [address] PCP - General 01/01/24
--- OUTSIDE RECORDS SUMMARY | 2024-02-28 16:39 | XMS_ITS | Encounter Summary ---
Author Organization [facility] Address [address] [place] [address] Care Team Providers Care Snow Blower Name Role Phone Jason Batres MD Primary Care Provi margarita Encounter Details Date Type Department Care Team (Late st Contact Info) Description 10/15/2023 Patient Outreach [facility] - [address] [phone] Edmundo De La O, JARVIS Social History Tobacco Use Types Packs/Day Years [...] place to sleep or slept in a fpc (including now)? No 05/02/2022 Interpersonal Safety Answer [...] documented in this encounter Progress Notes * Edmundo De La O RN - 10/15/2023 1407 EDT [facility] Integrated Care Management Care Coordination Note Ketan's son Js called this RN on 10/15/23 for support. Js is concerned that Jeff is being targeted by a neighbor in [facility] for financial fraud. Js said that he has reported this to [employer],and he has had a conversation with Jeff to encourage Jeff to allow Js to establish a bank account with Jeff's sons Js and Grady as POA. Js said that he's hopeful that Jeff will establish with a new PCP in the next week or two. PLAN: Notify of this phone call. EDMUNDO DE LA O RN 10/15/2023 14:08 documented in this encounter Plan of Treatment Not on file documented as of this encounter Visit Diagnoses Not on filedocumented in this encounter Care Teams Snow Blower Relationship Specialty Start Date End Date Jason Batres MD [address] [place] [id number] PCP - General 07/27/11 12/31/23 documented as of this encounter
--- OUTSIDE RECORDS SUMMARY | 2024-02-28 16:39 | XMS_ITS | Encounter Summary ---
Author Organization [facility] Address [address] [place] [address] Care Team Providers Care Nursing Admin Name Role Phone Jason Batres MD Primary Care Provi margarita Alexus De La O RN Unavailable Unavailable Reason for Visit * Reason Comments Follow-up Encounter Details Date Type Department Care Team (Latest Contact Info) Description 06/29/2023 10:00 EDT Office Visit [facility] Foot & Ankle Program - [facility] [address] [place] [address] Elie Betancourt, DPCarol [address] [place] [address] Diabetic polyneuropathy associated with type 2 diabetes mellitus (HCC-CMS) (Primary Dx) Social History Tobacco Use Types Packs/Day Years [...] place to sleep or slept in a senior care (including now)? No 05/02/2022 Interpersonal Safety Answer [...] documented in this encounter Progress Notes * Elie Betancourt DPM - 06/29/2023 1000 EDT SUBJECTIVE: Jeff Scott returns today for follow-up diabetic footcare. Patient has a history of peripheral neuropathy and ulceration. He is also status post transtibial amputation right lower extremity. OBJECTIVE: Inspection of the left foot shows no areas of skin breakdown. There is some hyperpigmentation on the plantar lateral aspect of the heel where he has had previous ulceration. No signs of infection are noted today. IMPRESSION: Encounter Diagnosis Name Primary? Diabetic polyneuropathy associated with type 2 diabetes mellitus (HCC-CMS) Yes PLAN: Overall, the patient's left limb looks good. Patient is moving to the [facility].We were able to give him the name of a glassware finisher through their local hospital. Arrangements can bemade to transfer any relevant medical records to that new provider when ready. Follow-up as needed. I spent a total of 10 minutes on the date of this encounter meeting with the patient and reviewing documentation/coordinating care as described in the above note. No procedures were performed at the time of the visit. documented in this encounter Plan of Treatment Not on file documented as of this encounter Visit Diagnoses Diagnosis Diabetic polyneuropathy associated with type 2 diabetes mellitus (HCC-CMS)- Primary documented in this encounter Care Teams Nursing Admin Relationship Specialty Start Date End Date Jason Batres MD [address] [place] [id number] PCP - General 07/27/11 12/31/23 Alexus De La O RN Care Manager 04/18/22 08/13/23 documented as of this encounter
--- OUTSIDE RECORDS SUMMARY | 2024-02-28 16:39 | XMS_ITS | Encounter Summary ---
Author Organization [facility] Address [address] [place] [address] Care Team Providers Care Nuclear Physics Teacher Name Role Phone Jason Batres MD Primary Care Provi margarita [facility] Internal Medicine, Primary Care Provi margarita Reason for Visit * Reason Onset Date Comments Update 10/11/2023 Encounter Details Date Type Department Care Team (Late st Contact Info) Description 10/11/2023 Telephone Terry Batres MD [address] [address] Jason Batres MD [address] [place] [id number] Update Social History Tobacco Use Types Packs/Day Years [...] place to sleep or slept in a group home (including now)? No 05/02/2022 Interpersonal Safety Answer [...] encounter Miscellaneous Notes * Telephone Encounter - Constance Mix RN - 10/12/2023 0851 EDT LM for Js to call back to discuss Dr. Batres's recs below. If we can not connect I also asked if OK to leave a detailed voice message for him. CONSTANCE MIX RN * Telephone Encounter - Jason Batres MD - 10/11/2023 1628 EDT He has an advanced directive on file that lists Grady and Luke as his contacts but I do not see a financial power of attourney. Calling [employer] was the right decision as his neighbor may be taking advantage of him and so I agree [employer]PS should be called. I also would suggest they talk to a regulatory associate who could help with paperwork so that Js can be formally listed as a power of attourney. If they need something from me for that, I would agree that Jeff is not able to make his own decisions. I can help as Robbie Aguilar, but I did think he found a new MD since he is now living in [facility] Jason Batres MD * Telephone Encounter - Constance Mix RN - 10/11/2023 1447 EDT I returned call to son Js. Js states noemí moved to [facility] into an apartment a couple months ago. He states himself, his brother, and Jeff have a joint account that collects Jeff's social security. He states when Jeff first moved Js and his brother set all of his bills up for him to [employer]. When he last visited Jeff, his new neighbor confronted Js stating she was upset they abandoned him and that he can make his own financial decisions. He states this neighbor encouraged Jeff to cancel his bank account with his sons and open a new account. He is very concerned that the neighbor isexploiting his father. He spoke again to Jeff last night and thinks he got across to him a little bit but is still very concerned. Js also reported this to Adult Protective Services. He wanted to make our office aware and is also hoping for more information from our office confirming he is his father's proxy and that he has right to be on his social security account. CONSTANCE MIX RN * Telephone Encounter - An Brand - 10/11/2023 1006 EDT Js called saying that he is really concerned with his father at the new place that he is staying.He said that his father isn't acting like himself lately and he feels that he is being exploited. He said that he has also contacted Omaira in reference. Can you please call him back at [phone]. documented in this encounter Plan of Treatment Not on file documented as of this encounter Visit Diagnoses Not on filedocumented in this encounter Care Teams Nuclear Physics Teacher Relationship Specialty Start Date End Date Jason Batres MD [address] [place] [address] PCP - General 07/27/11 12/31/23 [facility] Internal Medicine, [address] [place] [address] PCP - General 01/01/24 documented as of this encounter
--- OUTSIDE RECORDS SUMMARY | 2024-02-28 16:39 | XMS_ITS | Encounter Summary ---
Author Organization [facility] Address [address] [place] [address] Care Team Providers Care Tissue Technician Name Role Phone [facility] Internal Medicine, Primary Care Provi margarita Reason for Visit * Reason Comments Follow-up Encounter Details Date Type Department Care Team (Latest Contact Info) Description 01/01/2024 11:30 EDT Office Visit [facility] Physical Medicine & Rehabilitation - [facility] [place] [address] Arianne Gonzalez MD [address] [place] [address] Below-knee amputation of right lower extremity, subsequent encounter ([facility]) (Primary Dx) Social History Tobacco Use Types [...] place to sleep or slept in a prison (including now)? No 05/02/2022 Interpersonal Safety Answer [...] Progress Notes * Arianne Gonzalez MD - 01/01/2024 1130 EDT Jeff Scott Date of Visit: 01/01/2024 Chief Complaint Patient presents with Follow-up HPI: Jeff returns for wound check. He was last seen in this clinic on 12/07/2023. He has continued to avoid the prosthesis as much as possible. He did sustain one recent fall when he missed the chair in [facility], and was able to keep his residual limb up and uninjured. He otherwise feels well today without acute [...] respiratory rhythm and depth Skin: R TTA wound fully healed, skin intact, clean, dry. Psych: Appropriate affect MSK/Neuro: R TTA nontender. Circumference 36.5cm over widest distal margin, 36.5cm over patellar tendon. Short-term memory loss. Dons prosthesis independently without difficulty. Wearing 10 ply socks. Gel liner cracking near margin of umbrella. Loose socket fit, with 10 ply socks. Ambulating with 2 trekking poles, noting pain with ambulation. Rather even, symmetric stride. ASSESSMENT/PLAN: Jeff is a 63-year-old male s/p R TTA 12/29/2020 for chronic osteomyelitis in the setting of type 2diabetes mellitus whose recent residual limb wound has fully healed. He continues to have pain witheven short-distance ambulation in his current prosthesis related to poor fit/residual limb volume loss. He needs new gel liners and a replacement socket, both medically required for indefinite daily use to optimize fit, comfort, skin integrity, and safety with independent ambulation in this active K3 ambulator. Prescription provided today. Will ask the team at [facility] to reach out to Jeff for scheduling casting, fitting, and delivery appointments. Discussed gradual increase in wear time with the new prosthesis and vigilant skin monitoring. The team at [facility] will reinforce this as well. Jeff may otherwise follow-up in this clinic as needed for any issues or concerns related to his amputation or equipment needs. Patient indicated understanding and agreement with plan. All questions answered. I spent a total of 30 minutes in the care of this patient today including review of medical records, history, evaluation, counseling, coordination of care, and documentation. Arianne Gonzalez MD Physical Medicine and Rehabilitation documented in this encounter Plan of Treatment Not on file documented as of this encounter Visit Diagnoses Diagnosis Below-knee amputation of right lower extremity, subsequent encounter ([facility])- Primary documented in this encounter Orders Equipment Count Last Ordered Date First Orde red Date GENERIC DME ORDER 1 01/01/2024 documented in this encounter Care Teams Tissue Technician Relationship Specialty Start Date End Date [facility] Internal Medicine, [place] [place] [address] PCP - General 01/01/24 documented as of this encounter
--- OUTSIDE RECORDS SUMMARY | 2024-02-28 16:39 | XMS_ITS | Referral Summary ---
Author Organization [facility] Address [address] [place] [address] Care Team Providers Care Sales Training Coordinator Name Role Phone [facility] Internal Medicine, Primary Care Provi margarita Encounters Date Type Department Care Team Description 01/01/2024 11:30 EDT Office Visit [facility] Physical Medicine & Rehabilitation [address] [place] [address] Arianne Gonzalez MD Below-knee amputation of right lower extremity, subsequent encounter ([facility]) (Primary Dx) 12/07/2023 11:00 EDT Office Visit [facility] Physical Medicine & Rehabilitation [address] [place] [address] Arianne Gonzalez MD Below-knee amputation of right lower extremity, subsequent encounter ([facility]) (Primary Dx); Wound of right lower extremity, subsequent encounter from Last 3 Months Allergies No known active allergies Medications blood [...] original. Patient has given permission for the [facility] to verbally discuss the following information [...] in adult 11/20/2021 Hx of BKA, right ([facility]) 11/20/2021 Chronic deep vein thrombosis (DVT) of proximal vein of left lower extremity ([facility]) 11/20/2021 Hypothyroidism, unspecified type 11/20/2021 Gastroesophageal reflux dise ase with esophagitis and hemorrhage 11/20/2021 Benign prostatic hyperplasia , unspecified whether lower urinary tract symptoms present 11/20/2021 Other chronic pain 11/20/2021 Deep vein thrombosis (DVT) o f proximal vein of left lower extremity, unspecified chronicity ([facility]) 12/23/2020 Type 2 diabetes mellitus wit hout complication, with long-term current use of insulin ([facility]) 12/23/2020 Chronic osteomyelitis of rig ht foot with draining sinus ([facility]) 12/22/2020 Overview (12/28/2020): Added automatically from request for surgery [id number] Acute osteomyelitis of right ankle or foot ([facility]) 10/03/2019 Overview (10/07/2019): Added automatically from request for surgery [id number] Hyperplastic polyp of descending colon 9 Type 2 diabetes mellitus wit h diabetic polyneuropathy, with long-term current use of insulin ([facility]) 06/24/2018 Acute osteomyelitis of phalanx of foot ([facility]) 03/23/2016 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 (01/22/2013): From brain surgery, carniopharyngioma Hypothyroidism 01/22/2013 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 (01/22/2013): resected 09/06/06 Late effect of intracranial injury ([facility]) Overview (12/20/2014): IMO Update Auto Replacement Gait instability Adjustment disorder with mixed anxiety and depre ssed mood Anemia Resolved Problems Problem Noted Date Diagnosed Date Resolved Date Primary osteoarthritis of left hip 11/20/2021 05/02/2022 Osteoarthritis of left hip, unspecified osteoarthritis type 11/20/2021 05/02/2022 Ketoacidosis 12/23/2020 01/21/2021 Diabetic foot infection ([facility]) 10/04/2019 01/21/2021 Osteoarthritis of left hip 07/06/2014 0 05/02/2022 Immunizations Name Administration Dates Next Due Covid-19 mRNA Vaccine (PFIZE R COVID-19) PF 0.3 ml IM (12 yrs+) 10/21/2021,06/16/2020,05/26/2020 Influenza (whole) 01/08/2007 Influenza Vaccine Quad PF 0. 5 ml IM (6 mos+) 12/05/2021,01/21/2021(Deferred: - Pt states, will take it at the Rehab) Tdap Vaccine =>7YO IM 01/08/2018 Social History Tobacco Use Types Packs/Day Years [...] Sexual Orientation Straight 06/12/2023 11 :45 EDT Last Filed Vital Signs Vital Sign Reading [...] Body Mass Index 36.46 05/14/2022 1530 EDT Functional Status * Are you deaf or do you have serious difficulty hearing? Answer Date of Assessment Author No 11/20/2021 20:00 EDT Chelsea Nair RN * Are you blind or do you have serious difficulty seeing, even when wearing glasses? Answer Date of Assessment Author No 11/20/2021 20:00 EDT Chelsea Nair RN * Do you have serious difficulty [...] Author Yes 11/20/2021 20:00 Chelsea Kwon RN Mental Status * Because of a physical, mental, or emotional condition, do you have serious difficulty concentrating, remembering, or making decisions? (5 years old or older) Answer Entry Date Author No 11/20/2021 20:00 Chelsea Kwon RN Plan of Treatment Not on file Medical Devices Implanted Type Area Water Pump Operator Device Identifier Shelf Expiration Date Model / Serial / Lot Cable Fixation Hip 2.0mm Dall Bolckow [id number] - [id number] Implanted:Qty : 1 on 02/13/2022 by Sachin Burroughs MD MSc FRCSC at [facility] Ortho Implant Left: Hip [employer] [id number] 12/20/2026 6704-0-520 / / [id number] Screw Bone Acetabular Full Thread Canc Sphr Hd 6.5x15mm Reflection [id number] - [id number] Implanted:Qty : 1 on 02/13/2022 by Sachin Burroughs MD MSc FRCSC at [facility] Screw Implant Left: Hip [employer] [id number] 02/18/2028 [id number] / / [id number] Screw Bone Acetabular Full Thread Canc Sphr Hd 6.5x15mm Reflection [id number] - [id number] Implanted:Qty : 1 on 02/13/2022 by Sachin Burroughs MD MSc FRCSC at [facility] Screw Implant Left: Hip [employer] [id number] 05/06/2028 [id number] / / [id number] Screw Bone Acetabular Full Thread Canc Sphr Hd 6.5x20mm Reflection [id number] - [id number] Implanted:Qty : 1 on 02/13/2022 by Sachin Burroughs MD MSc FRCSC at [facility] Screw Implant Left: Hip [employer] [id number] 10/04/2031 [id number] / / [id number] Stem Lateral Ti/Worley 9 With Collar [employer] - [id number] Implanted:Qty : 1 on 02/13/2022 by Sachin Burroughs MD MSc FRCSC at [facility] Spinal Implant Left: Hip [employer] 03/10/2026 [id number] / / [id number] Shell Acet Hip Porous Ti 3h 64mm R3 [id number] - [id number] Implanted:Qty : 1 on 02/13/2022 by Sachin Burroughs MD MSc FRCSC at [facility] Total Joint Implant Left: Hip [employer] [id number] 08/13/2031 [id number] / / [id number] Liner Mobility Dual Or30 50/64 - [id number] Implanted:Qty : 1 on 02/13/2022 by Sachin Burroughs MD MSc FRCSC at [facility] Total Joint Implant Left: Hip [employer] [id number] 08/21/2030 [id number] / / [id number] Insert Xlpe Dm Or30 28/50 - [id number] Implanted:Qty : 1 on 02/13/2022 by Sachin Burroughs MD MSc FRCSC at [facility] Total Joint Implant Left: Hip [employer] [id number] 10/30/2030 [id number] / / [id number] Hip Femoral Head Zr 28mm Oxinium [id number] - [id number] Implanted:Qty : 1 on 02/13/2022 by Sachin Burroughs MD MSc FRCSC at [facility] Total Joint Implant Left: Hip [employer] [id number] 10/19/2030 [id number] / / [id number] Procedures Procedure Name Priority Date/Time Associated Diagnosis Comments LIPID PROFILE (INCLUDES CHOLESTEROL, TRIGLYCERIDES, HDL, LDL) Routine 10/05/2022 16:28 EDT Type 2 diabetes mellitus without complication, with long-term current use of insulin ([facility]) POCT HEMOGLOBIN A1C Routine 10/05/2022 Type 2 diabetes mellitus without complication, with long-term current use of insulin ([facility]) COLONOSCOPY PROCEDURE Routine 07/30/2018 URINE [id number] E RATIO (ACR) Routine 01/17/2018 9:04 EST Type 2 diabetes mellitus with hyperglycemia, without long-term current use of insulin ([facility]) HEPATITIS C AB W REFLEX TO HCV RNA BY PCR Routine 02/17/2016 14:33 EST from Last 3 Months or Most Recently Relevant to Health Maintenance Results * (ABNORMAL) LIPID PROFILE (INCLUDES CHOLESTEROL, TRIGLYCERIDES, HDL, LDL) (10/05/2022 16:28 EDT) Cholesterol 241(H) <200 mg/dL 10/05/2022 19:12 T [facility] Comment:Note that therapeuti c goals will differ between patients based on cardiac risk factors and current medical therapy. HDL 35(L) >=40 mg/dl 10/05/2022 19:12 T [facility] Comment:Note that therapeuti c goals will differ between patients based on cardiac risk factors and current medical therapy. LDL, Calculated 19:12 T [facility] Comment: Note that therapeutic goals will differ between patients based on cardiac risk factors and current medical therapy. Calculated LDL invalid, triglycerides >400 mg/dL Direct LDL measurement added by reflex. Triglyceride 411(H) <=150 mg/dL 10/05/2022 19:12 T [facility] Comment:Note that therapeuti c goals will differ between patients based on cardiac risk factors and current medical therapy. Chol/HDL Ratio 6.9 See Note 10/05/2022 19:12 EDT [facility] Comment:No reference range h as been established for CHOL/HDL ratio. Non HDL Cholesterol 206(H) <160 mg/dL 10/05/2022 19:12 [facility] Comment:Note that therapeuti c goals will differ between patients based on cardiac risk factors and current medical therapy. Blood VENOUS BLOOD / Unknown Venipuncture / Unknown 10/05/2022 16:28 EDT 10/05/2022 18:33 EDT Jason Batres MD CHEMISTRY & BLOOD G ORDERABLES Final Result [facility] [address] [place] [id number] * POCT HEMOGLOBIN A1C (10/05/2022) Hemoglobin A1c, POC >14 <=5.7 % [facility] POINT OF CARE Blood CAPILLARY BLOOD / Unknown 10/05/2022 us Jason Batres MD POINT OF CARE TEST ORDERABLES Final Result Performing Organization Address [facility]/ZIP Co de Phone Number [facility] POINT OF CARE * COLONOSCOPY PROCEDURE (07/30/2018) [...] procedure. ??Total sedation time was 26 ??minutes. Edison Bowel Prep Right Colon: 3 ? Transverse [...] ALBUMIN, URINE (01/17/2018 9:04 EST) Creatinine, Urn [place] 181.9 mg/dl 01/17/2018 16:56 EST [facility] Ur Albumin mg/dl 2.8 mg/dL 01/18/20 18 17:01 EST [facility] Comment:New Vitros 5600 Meth odology in use 07/04/2017 Urine Albumin to Creatinine Ratio 15.4 ug/mg Crea 01/17/2018 17:01 EST [facility] Comment: Normal: <30 ug/mg creatinine Moderately increased albuminuria: 30-300 ug/mg creatinine Severly increased albuminuria: >300 ug/mg creatinine New Vitros 5600 Methodology in use 07/04/2017 Urine specimen (specimen) URINE / Unknown 01/17/2018 9:04 EST 01/17/2018 14:26 EST us Yesi Marie NP CHEMISTRY & BLOOD GAS ORDER ELIU Final Result Performing Organization Address City/[facility]/ZIP Co de Phone Number [facility] [address] [place] [address] * HEPATITIS C ANTIBODY (02/17/2016 14:33 EST) Hep C Ab w Rfx PCR Negative Negative 02/18/2016 12:09 [facility] Comment:Reference Range: Neg ative BLOOD SPECIMEN / Unknown 02/17/2016 14:33 EST 02/17/2016 18:27 EST Jason Batres MD CHEMISTRY & BLOOD G ORDERABLES Final Result Performing Organization Address City/[facility]/ZIP Co de Phone Number [facility] [address] [place] [address] from Last 3 Months or Most Recently Relevant to Health Maintenance Insurance MEDICARE O [place] [facility] [place] Advance Directives For more information, please contact: [phone] Documents on File Type Date Recorded Patient Yoke Presser Expl anation Advance Directive 10/27/2022 12:56 [place] [...] the discussion? Not Discusse d Care Teams Sales Training Coordinator Relationship Specialty Start Date End Date [facility] Internal Medicine, [place] [address] [place] [address] PCP - General 01/01/24
--- OUTSIDE RECORDS SUMMARY | 2024-02-28 16:39 | XMS_ITS | Encounter Summary ---
Author Organization [facility] Address [address] [place] [address] Care Team Providers Care Sales Representative Gas Service Name Role Phone Jason Batres MD Primary Care Provi margarita Reason for Visit * Reason Comments Follow-up Right BKA Encounter Details Date Type Department Care Team (Latest Contact Info) Description 10/18/2023 13:00 EDT Office Visit [facility] Physical Medicine & Rehabilitation [place] [address] Arianne Gonzalez MD [address] [place] [phone] Below-knee amputation of right lower extremity, subsequent encounter ([facility]) (Primary Dx); Wound of right lower extremity, [...] to sleep or slept in a senior living (including now)? No 05/02/2022 Interpersonal Safety Answer [...] Progress Notes * Arianne Gonzalez MD - 10/18/2023 1300 EDT Jeff Castillo Tyler Date of Visit: 10/18/2023 Chief Complaint Patient presents with Follow-up Right BKA HPI: Jeff returns for wound check. He was last seen in this clinic on 09/27/2023, where he was found to have an open wound over his distal residual limb of unclear duration. Today he reports that he has not been wearing his prosthesis, as instructed, and using his wheelchair for all mobility, with the exception of transportation for this visit today. He has been wearing his development technologist during the day andleaving the skin open to air overnight. He does endorse a few falls when missing the wheelchair, he landed on the residual limb. He denies any acute injuries or new wounds. He plans to see Elbert for casting next week, and will meet his new primary care provider in [facility] the following week. He has no acute issues or concerns at this time. 12pt review of systems was completed and [...] rhythm and depth Skin: R TTA with eschar within distal callus. Clean, dry, without discharge or drainage. Incision well healed. Remainder of skin intact, clear. Psych: Appropriate affect MSK/Neuro: R TTA nontender. Circumference 36cm over widest distal margin, 37.5cm over patellar tendon. Short-term memory loss, noting confusion and repetitive questioning. Seated in manual WC, not wearing prosthesis. Gait not assessed. ASSESSMENT/PLAN: Jeff is a 62-year-old male s/p R TTA 12/29/2020 for chronic osteomyelitis in the setting of type 2diabetes mellitus who has a slowly healing distal residual limb wound, now closed with intact eschar. He should continue to avoid use of the prosthesis as much as possible until the eschar falls off and the skin beneath is fully healed. He may proceed with casting for a new socket next week as planned, and should continue to wear his development technologist during the day in the interim; he may wear it at nightfor comfort as desired. Will follow-up in 3-4 weeks to reassess and hopefully progress to gradual wear of the new prosthesis. He may certainly call sooner with any new issues or concerns. Patient indicated understanding and agreement with plan. [...] amputation of right lower extremity, subsequent encounter ([facility])- Primary Wound of right lower extremity, subsequent encounter documented in this encounter Care Teams Sales Representative Gas Service Relationship Specialty Start Date End Date Jason Batres MD [address] [place] [id number] PCP - General 07/27/11 12/31/23 documented as of this encounter
--- OUTSIDE RECORDS SUMMARY | 2024-02-28 16:39 | XMS_ITS | Encounter Summary ---
Author Organization [facility] Address [address] [place] [address] Care Team Providers Care Anthropological Linguist Name Role Phone Jason Batres MD Primary Care Provi margarita Encounter Details Date Type Department Care Team (Late st Contact Info) Description 08/14/2023 Patient Outreach [facility] Adult Primary Care - [address] [phone] Edmundo De La O, JARVIS Social History [...] place to sleep or slept in a longterm (including now)? No 05/02/2022 Interpersonal Safety Answer [...] * Edmundo De La O RN - 08/14/2023 0922 EDT [facility] Integrated Care Management Follow Up paperhanger apprentice followed up with Jeff by phone for diabetes.. TOPIC OF CONVERSATION: Reviewed assessment and plan from previous visit with patient. Engaged patient in conversation related to positive behavior change, self- management, goal setting and action planning using motivational interviewing and active listening. Jeff has moved to [facility]. He has subsidized housing and is settling in. He has [employer], [facility], and home health weekly. He is checking in with his brother and sons daily. Jeff is going to find a PCP in [facility]. Medication reviewed: No new needs identified Social determinants of health needs reviewed: No new needs identified Gaps in community resources: No new needs identified Education provided on condition and/or disease: no Plan: Complete Care Management for Jeff since he is not longer seeing Dr. Batres . No further follow up planned. EDMUNDO DE LA O RN 08/14/2023 9:23 documented in this encounter Plan of Treatment Not on file documented as of this encounter Visit Diagnoses Not on filedocumented in this encounter Care Teams Anthropological Linguist Relationship Specialty Start Date End Date Jason Batres MD [address] [place] [id number] PCP - General 07/27/11 12/31/23 documented as of this encounter
--- OUTSIDE RECORDS SUMMARY | 2024-02-28 16:40 | XMS_ITS | Encounter Summary ---
Author Organization [facility] Address [address] [place] [address] Care Team Providers Care Board Certified Family Physician Name Role Phone Jason Batres MD Primary Care Provi margarita Alexus De La O RN Unavailable Unavailable Reason for Visit * Reason Comments Foot Problem Encounter Details Date Type Department Care Team (Latest Contact Info) Description 12/15/2022 11:00 EDT Office Visit [facility] Foot & Ankle Program - [facility] [address] [place] [address] Elie Betancourt, DPCarol [address] [place] [phone] Diabetic polyneuropathy associated with type [...] place to sleep or slept in a fdc (including now)? No 05/02/2022 Interpersonal Safety Answer [...] Progress Notes * Elie Betancourt DPM - 12/15/2022 1100 EDT SUBJECTIVE: Jeff Scott returns today for follow-up diabetic foot care. Patient has peripheral neuropathy associated with his diabetes. Patient has a history of ulceration on his left lower extremity. He is transtibial amputation on the right lower extremity. Patient has very poorly controlled diabetes mellitus. OBJECTIVE: Inspection of his left foot demonstrates that he is wound free. The ulcer that had been noted on the plantar and posterior lateral portion of his heel has completely resolved. IMPRESSION: Encounter Diagnosis Name Primary? Diabetic polyneuropathy associated with type 2 diabetes mellitus (HCC-CMS) Yes PLAN: Time was spent discussing preventative diabetic foot care with the patient. This involves strict and frequent checks of his feet. If he notes anything abnormal, he should report it to a healthcare provider immediately. He should also be realistic about his activity level. A prescription for new shoes was provided for him today to be purchased at a local shoe store. Patient still plans to wear the surgical shoe for the time being. Plan for follow-up in 6 months. I spent a total of 15 minutes on the date of this encounter [...] Primary documented in this encounter Care Teams Board Certified Family Physician Relationship Specialty Start Date End Date Jason Batres MD [address] [place] [id number] PCP - General 07/27/11 12/31/23 Alexus D eLa O, typing teacher 04/18/22 08/13/23 documented as of this encounter
--- OUTSIDE RECORDS SUMMARY | 2024-02-28 16:40 | XMS_ITS | Encounter Summary ---
Author Organization [facility] Address [address] [place] [address] Care Team Providers Care Recording Studio Internship Name Role Phone Jason Batres MD Primary Care Provi margarita Alexus De La O RN [facility] Internal Medicine, Primary Care Provi margarita Reason for Visit * Reason Onset Date Comments DME 12/05/2022 Encounter Details Date Type Department Care Team (Late st Contact Info) Description 12/05/2022 Telephone Terry Batres MD [address] [address] Jason Batres MD [address] [place] [phone] DME Social History Tobacco Use Types Packs/Day Years [...] Chelsea Nair, RN documented in this encounter Miscellaneous Notes * Telephone Encounter - An Brand - 12/05/2022 1323 EDT Jeff called and is requesting a bariatric wheelchair prescription [facility]. documented in this encounter Plan of Treatment Not on file documented as of this encounter Visit Diagnoses Diagnosis Below-knee amputation of right lower extremity (HCC-CMS)- Primary Neuropathic diabetic ulcer of foot (HCC-CMS) Type II or unspecified type diabetes mellitus with other specified manifestations, not stated as uncontrolled documented in this encounter Orders Equipment Count Last Ordered Date First Orde red Date GENERIC DME ORDER 1 12/05/2022 documented in this encounter Care Teams Recording Studio Internship Relationship Specialty Start Date End Date Jason Batres MD [address] [place] [address] PCP - General 07/27/11 12/31/23 [facility] Internal Medicine, [address] [place] [address] PCP - General 01/01/24 Alexus De La O, supervising floorperson 04/18/22 08/13/23 documented as of this encounter
--- OUTSIDE RECORDS SUMMARY | 2024-02-28 16:40 | XMS_ITS | Encounter Summary ---
Author Organization [facility] Address [address] [place] [address] Care Team Providers Care Nursing Coordinator Name Role Phone Jason Batres MD Primary Care Provi margarita Alexus De La O RN Unavailable Unavailable Reason for Visit * Reason Onset Date Comments Wound Care 09/12/2022 Encounter Details Date Type Department Care Team (Late st Contact Info) Description 09/12/2022 Telephone Terry Batres MD [address] [address] Jason Batres MD [address] [place] [phone] Wound Care Social History Tobacco Use Types Packs/Day Years [...] place to sleep or slept in a jail (including now)? No 05/02/2022 Interpersonal Safety Answer [...] encounter Miscellaneous Notes * Telephone Encounter - Jason Batres MD - 09/12/2022 1453 EDT I am OK with this change in his wound care Jason Batres MD * Telephone Encounter - Tangela Garrett - 09/12/2022 1447 EDT Glenys from [facility] stating pt's right BKA wound is not improving. Their wound care nurse recommends RadiaDres 2-3x/week and then covered with a dry dressing. Needs verbal OK for PCP. TANGELA SALVADOR MA documented in this encounter Plan of Treatment Not on file documented as of this encounter Visit Diagnoses Not on filedocumented in this encounter Care Teams Nursing Coordinator Relationship Specialty Start Date End Date Jason Batres MD [address] [place] [id number] PCP - General 07/27/11 12/31/23 Alexus De La O, hvac engineering technician 04/18/22 08/13/23 documented as of this encounter
--- OUTSIDE RECORDS SUMMARY | 2024-02-28 16:40 | XMS_ITS | Encounter Summary ---
Author Organization [facility] Address [address] [place] [address] Care Team Providers Care Rn Acls Name Role Phone Jason Batres MD Primary Care Provi margarita Alexus De La O RN Unavailable Unavailable Reason for Visit * Reason Comments Follow-up RIGHT BKA Encounter Details Date Type Department Care Team (Latest Contact Info) Description 12/28/2022 15:00 EDT Office Visit [facility] Physical Medicine & Rehabilitation - [address] [place] [address] Arianne Gonzalez MD [address] [place] [phone] Below-knee amputation of right lower extremity (HCC-CMS) (Primary Dx); Wound of right lower extremity, [...] Answer Entry Date Author No 11/20/2021 20:00 EDChelsea Martinez RN documented in this encounter Progress Notes * Arianne Gonzalez MD - 12/28/2022 1500 EDT Jeff Scott Date of Visit: 12/28/2022 Chief Complaint Patient presents with ??? Follow-up RIGHT BKA HPI: Jeff is a 62 y.o. male who returns for follow-up of right transtibial amputation. He was last seenin this clinic on 10/03/2022 for a worsening wound over the distal residual limb. He missed his follow-up appointment with Dr. Arzate in late October. He has continued to have home wound care serviceswith suspected wet-to-dry dressings 3x/week. He has been using the prosthesis to ambulate to the bathroom, but otherwise states he has been using the wheelchair. He otherwise feels well today withoutacute concerns. ?? 12pt review of systems was completed and negative except as above. ?? PMH, PSH, SH, FH reviewed in medical record. Current Outpatient Medications on File Prior to Visit Medication Sig Dispense Refill ??? acetaminophen (TYLENOL) 500 mg tablet Take 2 Tablets by mouth every 6 hours. 240 Tablet 0 ??? apixaban (ELIQUIS) 5 mg tablet Take 1 Tablet by mouth 2 times daily. 180 Tablet 3 ??? atorvastatin (LIPITOR) 20 mg tablet Take 1 Tablet by mouth daily. 90 Tablet 3 ??? bisacodyL (DULCOLAX) [address] 1 Suppository rectally as needed for Constipation.30 Each 0 ??? blood glucose (FREESTYLE TEST) test strips 1 Strip by misc (non-drug; combo route) route 3 times daily. 100 Each 0 ??? blood glucose meter (FREESTYLE FREEDOM LITE) Test FS BID. 1 Each 0 ??? blood glucose test strips 1 Strip by [facility] (non-drug; combo route) route 4 times daily. One touch verio flex 100 Each 2 ??? cholecalciferol, Vitamin D3, 50 mcg (2,000 unit) tablet Take 1 Tablet by mouth at bedtime. 30 Tablet 0 ??? clotrimazole (LOTRIMIN) 1 % cream Apply to affected area BID until resolved 45 g 1 ??? FREESTYLE FREEDOM LITE Use as directed as needed (glucose monitoring). 1 Each 0 ??? gabapentin (NEURONTIN) 300 mg capsule Take 1 Capsule by mouth 3 times daily. 270 Capsule 3 ??? insulin aspart U-100 (NOVOLOG FLEXPEN) 100 unit/mL (3 mL) injectable pen Inject 18 Units into the skin 3 times daily with meals. 15 mL 0 ??? insulin glargine (LANTUS SOLOSTAR/SEMGLEE) 100 unit/mL (3 mL) injection pen Inject 55 Units into the skin at bedtime. 15 mL 11 ??? lancets Test BID 100 Each 1 ??? levothyroxine (SYNTHROID) 112 mcg tablet Take 1 Tablet by mouth daily. 90 Tablet 3 ??? losartan (COZAAR) 25 mg tablet Take 1 Tablet by mouth daily. 90 Tablet 3 ??? magnesium oxide (MAG-OX) 400 mg (241.3 mg magnesium) tablet Take 1 Tablet by mouth daily. 30 Tablet 0 ??? metFORMIN (GLUCOPHAGE) 500 mg tablet Take 2 Tablets by mouth 2 times daily with breakfast and dinner. 180 Tablet 3 ??? methocarbamoL (ROBAXIN) 500 mg tablet Take 1 Tablet by mouth every 8 hours as needed for Pain or Muscle Spasms. 90 Tablet 3 ??? oxyCODONE (ROXICODONE) 5 mg immediate release tablet Take 1 Tablet by mouth 2 times daily as needed for Pain. Daily Max: 10 mg 10 Tablet 0 ??? pantoprazole (PROTONIX) 40 mg tablet Take 1 Tablet by mouth daily before breakfast. 90 Tablet 3 ??? sertraline (ZOLOFT) 50 mg tablet Take 1 Tablet by mouth daily. 90 Tablet 3 ??? TAMSulosin (FLOMAX) 0.4 mg capsule Take 1 Capsule by mouth daily. 30 Capsule 2 No current facility-administered medications on file prior to visit. No Known Allergies EXAM: General: Well-nourished and well developed. No acute distress. HEENT: NCAT, eyelids and conjunctiva normal, external ears normal, normal hearing to voice Resp: Normal respiratory rhythm and depth Skin:??R TTA with open wound over prominent distal anterior tibia with thick, dystrophic rim and protruding open center with white slough and some healthy- appearing tissue. Dry gauze was difficult toremove even with saline. Psych: Appropriate affect MSK/Neuro:??Short-term memory loss. Confusion noted. L post-op shoe in place, removed for exam. L heel wound fully closed. Gait not assessed. ASSESSMENT/PLAN: Jeff is a 62-year-old male s/p R TTA 12/29/2020 for chronic osteomyelitis in the setting of type 2diabetes mellitus with a persistent open wound over the distal residual limb. Dr. Arzate kindly debrided the wound in clinic today, removing the thick, dystrophic rim to reveal healthy bleeding tissue. Mepilex applied. Continue wound care 3x/week. Again discussed the importance of strict avoidance of the prosthesis until the wound is fully healed. This was repeated multiple times and should be relayed to his home health providers as well for reinforcement given Jeff's memory impairment. Willplan to follow-up in this clinic in 4-5 weeks for a wound check, sooner if new issues or concerns arise. Patient indicated understanding and agreement with plan. All questions answered. I spent a total of 45 minutes [...] amputation of right lower extremity (HCC-CMS)- Primary Wound of right lower extremity, subsequent encounter documented in this encounter Care Teams Rn Acls Relationship Specialty Start Date End Date Jason Batres MD [address] [place] [phone] PCP - General 07/27/11 12/31/23 Alexus De La O, parimutuel ticket checker 04/18/22 08/13/23 documented as of this encounter
--- OUTSIDE RECORDS SUMMARY | 2024-02-28 16:40 | XMS_ITS | Encounter Summary ---
Author Organization [facility] Address [address] [place] [address] Care Team Providers Care Thread Cutter Tender Name Role Phone Jason Batres MD Primary Care Provi margarita Alexus De La O RN Unavailable Unavailable Reason for Visit * Reason Comments Follow-up Right BKA Encounter Details Date Type Department Care Team (Latest Contact Info) Description 10/03/2022 11:30 EDT Office Visit [facility] Physical Medicine & Rehabilitation - [address] [place] [address] Arianne Gonzalez MD [address] [place] [phone] Below-knee amputation of right lower extremity (HCC-CMS) [...] Progress Notes * Arianne Gonzalez MD - 10/03/2022 1130 EDT Jeff Scott Date of Visit: 10/03/2022 Chief Complaint Patient presents with ??? Follow-up Right BKA HPI: Jeff is a 61 y.o. male who returns for follow-up of right transtibial amputation. He was last seenin this clinic on 08/22/2022, at which point it was recommended to avoid use of the prosthesis as much as possible and leave the wound open to air. Today he reports increasing pain in the distal residual limb over the past 2-3 weeks. When asked how much he is wearing the prosthesis, he reports all the time. He has continued to have home health wound care 3 times per week. His primary goal today is to get a prescription for a replacement socket. 12pt review of systems was completed and negative except as above. PMH, PSH, SH, FH reviewed in medical record. Current Outpatient Medications on File Prior to Visit Medication Sig Dispense Refill ??? acetaminophen (TYLENOL) 500 mg tablet Take 2 Tablets by mouth every 6 hours. 240 Tablet 0 ??? apixaban (ELIQUIS) 5 mg tablet Take 1 Tablet by mouth 2 times daily. 60 Tablet 2 ??? atorvastatin (LIPITOR) 20 mg tablet Take 1 Tablet by mouth daily. 30 Tablet 2 ??? bisacodyL (DULCOLAX) [address] 1 Suppository rectally as needed for Constipation.30 Each 0 ??? blood glucose (FREESTYLE TEST) test strips 1 Strip by misc (non-drug; combo route) route 3 times daily. 100 Each 0 ??? blood glucose meter (FREESTYLE FREEDOM LITE) Test FS BID. 1 Each 0 ??? blood glucose test strips 1 Strip by [facility] (non-drug; combo route) route 4 times daily. [...] 1 Capsule by mouth 3 times daily. 90 Capsule 2 ??? insulin aspart U-100 (NOVOLOG FLEXPEN) 100 unit/mL (3 mL) injectable pen Inject 18 Units into the skin 3 times daily with meals. 15 mL 0 ??? insulin glargine (LANTUS SOLOSTAR/SEMGLEE) 100 unit/mL (3 mL) injection pen Inject 55 Units into the skin at bedtime. 15 mL 11 ??? lancets Test BID. 100 Each 1 ??? levothyroxine (SYNTHROID) 112 mcg tablet Take 1 Tablet by mouth daily. 30 Tablet 2 ??? losartan (COZAAR) 25 mg tablet Take 1 Tablet by mouth daily. 90 Tablet 1 ??? magnesium oxide (MAG-OX) 400 mg (241.3 mg magnesium) tablet Take 1 Tablet by mouth daily. 30 Tablet 0 ??? metFORMIN (GLUCOPHAGE) 500 mg tablet Take 2 Tablets by mouth 2 times daily with breakfast and dinner. 120 Tablet 2 ??? methocarbamoL (ROBAXIN) 500 mg tablet Take 1 Tablet by mouth every 8 hours as needed for Pain or Muscle Spasms. 90 Tablet 1 ??? oxyCODONE (ROXICODONE) 5 mg immediate release tablet Take 1 Tablet by mouth 2 times daily as needed for Pain. Daily Max: 10 mg 10 Tablet 0 ??? pantoprazole (PROTONIX) 40 mg tablet Take 1 Tablet by mouth daily before breakfast. 30 Tablet 2 ??? sertraline (ZOLOFT) 50 mg tablet Take 1 Tablet by mouth daily. 30 Tablet 2 ??? TAMSulosin (FLOMAX) 0.4 mg capsule Take 1 Capsule by mouth daily. 30 Capsule 2 No current facility-administered medications on file prior to visit. No Known Allergies EXAM: General: Well-nourished and well developed. No acute distress. HEENT: NCAT, eyelids and conjunctiva normal, external ears normal, normal hearing to voice Resp: Normal respiratory rhythm and depth Skin: R TTA with malodorous open wound over prominent distal anterior tibia with blood on mepilex, thick white/yellow tissue at wound margins, some erythema along anterior border; remainder of residual limb skin intact, clean Psych: Appropriate affect MSK/Neuro: Short-term memory loss. Confusion noted. L post-op shoe in place, not removed for exam. R TTA with worsening appearance of distal wound, as above. FROM R knee. 07/07 R knee flexion/extension, hip flexion/extension. Dons and doffs prosthesis independently. Gait not assessed. ASSESSMENT/PLAN: Jeff is a 61-year-old male s/p R TTA 12/29/2020 for chronic osteomyelitis in the setting of type 2diabetes mellitus with a persistent, worsening open wound over the distal residual limb. Reviewed with Dr. Arzate, who kindly evaluated Jeff today and performed minimal debridement about the margins and noted that the wound does not probe to bone. He will see him back in the orthopedics clinic in 3 weeks. In the interim, again recommend avoidance of the prosthesis as much as possible. EscortedScott out of the clinic today in a wheelchair to emphasize this. Also discussed appropriate hygieneas Dr. Arzate cleared him to shower with the wound open. He will need full wound healing prior toconsideration of a replacement socket. Will monitor alongside Dr. Arzate and plan for return to physiatry clinic as he approaches wound healing. Patient indicated understanding and agreement with plan. [...] (HCC-CMS)- Primary Wound of right lower extremity, initial encounter documented in this encounter Care Teams Thread Cutter Tender Relationship Specialty Start Date End Date Jason Batres MD [address] [place] [phone] (Work) PCP - General 07/27/11 12/31/23 Alexus De La O, breakfast and room attendant 04/18/22 08/13/23 documented as of this encounter
--- OUTSIDE RECORDS SUMMARY | 2024-02-28 16:40 | XMS_ITS | Encounter Summary ---
Author Organization [facility] Address [address] [place] [address] Care Team Providers Care Chucking Lathe Operator Name Role Phone Jason Batres MD Primary Care Provi margarita Alexus De La O RN Unavailable Unavailable Reason for Referral * PT/OT/ST (Routine/Next Available) - Closed Specialty Diagnoses / Procedures Referred By Eddie crocker Referred To Contact Diagnoses Below-knee amputation of right lower extremity (HCC-CMS) Arianne Gonzalez MD Phone: tel: fax: Referral ID Status Reason Start Date Expiration Date V isits Requested Visits Authorized [id number] Closed Specialty Services Required 04/18/2023 1 1 Question Answer Reason for Request: gait training, safety, balance, strengthening, endurance [facility] [place] Encounter Details Date Type Department Care Team (Late st Contact Info) Description 04/18/2023 Orders Only [facility] Physical Medicine & Rehabilitation - [address] [place], [place] [id number] Arianne Gonzalez MD [address] [place] [address] [phone] Below-knee amputation of right lower extremity (HCC-CMS) (Primary Dx) Social History Tobacco Use [...] place to sleep or slept in a fci (including now)? No 05/02/2022 Interpersonal Safety Answer [...] Chelsea Kwon RN documented in this encounter Plan of Treatment Scheduled Referrals Name Type Priority Associated Diagnoses Order Schedule AMB CONS/FOLLOW UP PHYSICAL THERAPY - OUTSIDE OF NETWORK Outpatient Referral Routine/Next Available Below-knee amputation of right lower extremity (HCC-CMS) Expected: 04/25/2023 (Approximate), Expires: 04/18/2024 documented as of this encounter Visit Diagnoses Diagnosis Below-knee amputation of right lower extremity (HCC-CMS)- Primary documented in this encounter Care Teams Chucking Lathe Operator Relationship Specialty Start Date End Date Jason Batres MD [address] [place] [id number] PCP - General 07/27/11 12/31/23 Alexus De La O, hose wrapper 04/18/22 08/13/23 documented as of this encounter
--- OUTSIDE RECORDS SUMMARY | 2024-02-28 16:40 | XMS_ITS | Encounter Summary ---
Author Organization [facility] Address [address] [place] [address] Care Team Providers Care Rn Clinical Appeals Name Role Phone Jason Batres MD Primary Care Provi margarita Alexus De La O RN Unavailable Unavailable Reason for Visit * Reason Comments Follow-up F/u Left foot ulcer Wound Care F/u Left foot ulcer Encounter Details Date Type Department Care Team (Late st Contact Info) Description 11/13/2022 9:30 EDT Office Visit [facility] - [address] [address] Elie Betancourt, DPCarol [address] [place] [address] Neuropathic diabetic ulcer of foot (HCC-CMS) (Primary Dx) Social History Tobacco Use [...] place to sleep or slept in a mcc (including now)? No 05/02/2022 Interpersonal Safety Answer [...] Progress Notes * Elie Betancourt DPM - 11/13/2022 0930 EDT SUBJECTIVE: Jeff Scott returns today for follow-up diabetic foot care. Patient has poorly controlled diabetes mellitus with peripheral neuropathy. He has struggled with chronic posterior/plantar heel ulcer. He has been using a heel protector boot which has helped. Patient denies any fevers chills or night sweats. There is also new onset discoloration on the underside of the heel. OBJECTIVE: Inspection of the left foot demonstrates 2 isolated lesions. His primary longstanding lesion is noted on the posterior plantar lateral corner of the heel. It has a superficial fibrous basewith no probing to bone or undermining. The wound measures 1 cm x 0.5 cm. This represents a significant improvement compared to previous measurement in August 2022. He has a superficial blister with hemorrhagic discoloration noted on the more plantar central aspect of the heel. Upon unroofing, there is no penetration through the dermis and no signs of infection. IMPRESSION: Encounter Diagnosis Name Primary? Neuropathic diabetic ulcer of foot (HCC) Yes PLAN: Gentle debridement of the loose tissue involving the underside of the left heel was performedtoday. Overall his presentation represents a significant improvement. He was advised to continue with local wound care as well as the use of the heel protector boot especially at night when he is offhis feet. Plan for follow-up in 6-8 weeks. I spent a total of 10 minutes on the date of this encounter meeting with the patient and reviewing documentation/coordinating care as described in the above note. This was separate from any procedures performed at the time of the visit. documented in this encounter Plan of Treatment Not on file documented as of this encounter Visit Diagnoses Diagnosis Neuropathic diabetic ulcer of foot ([facility])- Primary Type II or unspecified type diabetes mellitus with other specified manifestations, not stated as uncontrolled documented in this encounter Care Teams Rn Clinical Appeals Relationship Specialty Start Date End Date Jason Batres MD [address] [place] [address] PCP - General 07/27/11 12/31/23 Alexus De La O, practical nursing instructor 04/18/22 08/13/23 documented as of this encounter
--- OUTSIDE RECORDS SUMMARY | 2024-02-28 16:40 | XMS_ITS | Encounter Summary ---
Author Organization [facility] Address [address] [place] [address] Care Team Providers Care Choir Accompanist Name Role Phone Jason Batres MD Primary Care Provi margarita Alexus De La O RN Unavailable Unavailable Reason for Visit * Reason Onset Date Comments Medications Refill 03/07/2023 Encounter Details Date Type Department Care Team (Late st Contact Info) Description 03/07/2023 Refill [facility] [address] [place] [address] Constance Briones, RN Medications Refill Social History [...] Refills Last Filled Start Date End Date losartan (COZAAR) 25 mg tablet Take 1 Tablet by mouth daily. 90 Tablet 3 03/07/2023 documented in this encounter Plan of Treatment Not on file documented as of this encounter Visit Diagnoses Not on filedocumented in this encounter Discontinued Medications Medication Sig Discontinue Reason Start Date End Da te losartan (COZAAR) 25 mg tablet Take 1 Tablet by mouth daily. Reorder 10/30/2022 03/07/2023 documented as of this encounter Care Teams Choir Accompanist Relationship Specialty Start Date End Date Jason Batres MD [address] [place] [address] PCP - General 07/27/11 12/31/23 Alexus De La O, ehs teacher 04/18/22 08/13/23 documented as of this encounter
--- OUTSIDE RECORDS SUMMARY | 2024-02-28 16:40 | XMS_ITS | Encounter Summary ---
Author Organization [facility] Address [address] [place] [address] Care Team Providers Care Chief Load Dispatcher Name Role Phone Jason Batres MD Primary Care Provi margarita Edmundo De La O RN Unavailable Unavailable Encounter Details Date Type Department Care Team (Late st Contact Info) Description 05/29/2023 Patient Outreach [facility] - [place] [address] [place] [address] Edmundo De La O, JARVIS Social History [...] * Edmundo De La O RN - 05/29/2023 1430 EDT [facility] Care Management Follow Up processor helper followed up with Jeff by phone for coordination of care, medication management. . TOPIC OF CONVERSATION: Reviewed assessment and plan from previous visit with patient. Engaged patient in conversation related to positive behavior change, self- management, goal setting and action planning using motivational interviewing and active listening. Medication reviewed: Jeff reports he's using his weekly pill box, and taking his insulin 3 times daily and at bedtime. He says he sometimes forgets to take his insulin on time. We discussed strategies to remember to take insulin on a schedule if possible. Jeff says he's testing his glucose 3 times daily, and it runs from 140's to 200's, depending on his diet. HE says he knows what he should be eating, but occasionally treats himself. We discussed Eliquis. Jeff picked up his refill that was ready for him. He was confused about whatto do when this runs out. Advised him to call Constance CONLEY at Dr. Batres's office when he is nearing the end of his supply so PA can be submitted. Social determinants of health needs reviewed: Jeff said he's using [employer] for transportation. HE says it's challenging for him because sometimes he forgets what his pickup time is so he misses his ride. He struggles with this. Housing: Jeff worked with [employer] to fill out subsidized housing applications. He said he has one offer that is in [facility]. He's not sure whether to look at that or not. HE wantsto have his new prosthesis before moving so he can be out of his wheelchair. The New prosthesis is being built, estimated finish is 3 weeks away. Jeff currently lives in the [facility] term apartments in [place] which he likes , but says he can't afford. Jeff said he would like to discuss housing options with Medical Library Assistant in Dr. Batres's office because [facility] has discharged him, so he no longer works with [facility]. Advised Phuong will ask Betty or Josiane to call him to discuss housing options. Gaps in community resources: No new needs identified Education provided on condition and/or disease: yes Jeff got a 2023 calendar and is writing appointments on it. He still sometimes forgets appointments so we discussed strategies for prompting his memory.. He has a daily notebook and writes everything down. We discussed using sticky notes in a prominent place the day before an appointment. Prioritized Patient Identified Goals: Jeff will Take Medications and insulin as directed on a regular basis every day. Achievement towards goals:In Progress. 2. Patient will test blood glucose 3 times daily before meals and write down the results in a log. Achievement towards goal: In Progress 3. New Goal: Jeff will get a 2023 calendar and record his upcoming appointments . Achievement towards goal: Complete Plan: refer to social work and/or resource forester for support finding housing. CM will follow-up in three months EDMUNDO DE LA O RN 05/29/2023 14:31 documented in this encounter Plan of Treatment Not on file documented as of this encounter Visit Diagnoses Not on filedocumented in this encounter Care Teams Chief Load Dispatcher Relationship Specialty Start Date End Date Jason Batres MD [address] [place] [id number] PCP - General 07/27/11 12/31/23 Edmundo De La O RN Care Manager 04/18/22 08/13/23 documented as of this encounter
--- OUTSIDE RECORDS SUMMARY | 2024-02-28 16:40 | XMS_ITS | Encounter Summary ---
Author Organization [facility] Address [address] [place] [address] Care Team Providers Care Township Clerk Name Role Phone Jason Batres MD Primary Care Provi margarita Alexus De La O RN [facility] Internal Medicine, Primary Care Provi margarita Reason for Visit * Reason Onset Date Comments Physical Therapy 01/16/2023 Encounter Details Date Type Department Care Team (Late st Contact Info) Description 01/16/2023 Telephone Terry Batres MD [address] [address] Jason Batres MD [address] [place] [phone] Physical Therapy Social History Tobacco Use Types Packs/Day Years [...] place to sleep or slept in a care home (including now)? No 05/02/2022 Interpersonal Safety [...] of Assessment Author Yes 11/20/2021 20:00 Chelsea Kwon, RN documented as of this encounter Mental Status * Because of a physical, mental, or emotional condition, do you have serious difficulty concentrating, remembering, or making decisions? (5 years old or older) Answer Entry Date Author No 11/20/2021 20:00 Chelsea Kwon RN documented in this encounter Miscellaneous Notes * Telephone Encounter - Tangela Garrett - 01/16/2023 1506 EST Pt has met PT goals and will be discharged from PT today. TANGELA SALVADOR MA documented in this encounter Plan of Treatment Not on file documented as of this encounter Visit Diagnoses Not on filedocumented in this encounter Care Teams Township Clerk Relationship Specialty Start Date End Date Jason Batres MD [address] [place] [id number] PCP - General 07/27/11 12/31/23 [facility] Internal Medicine, [address] [place] [address] PCP - General 01/01/24 Alexus De La O, office coordinator 04/18/22 08/13/23 documented as of this encounter
--- OUTSIDE RECORDS SUMMARY | 2024-02-28 16:40 | XMS_ITS | Encounter Summary ---
Author Organization [facility] Address [address] [place] [address] Care Team Providers Care Security Patrol Officer Name Role Phone Jason Batres MD Primary Care Provi margarita Alexus De La O RN [facility] Internal Medicine, Primary Care Provi margarita Reason for Visit * Reason Onset Date Comments Medication Problem 05/24/2023 Encounter Details Date Type Department Care Team (Late st Contact Info) Description 05/24/2023 Telephone Terry Batres MD [address] [address] Jason Batres MD [address] [place] [phone] Medication Problem Social History Tobacco Use Types Packs/Day Years [...] Telephone Encounter - Constance Mix RN - 05/24/2023 1520 EDT I spoke with Js. They received a message in the mail that [facility] will no longer be covering Eliquis. I attempted to do a PA for Eliquis however it still says PA not required. I called Jeff's pharmacy and they have Eliquis available for Jeff to picker tender helper from the pharmacy from 05/08 that has not been picked up yet, it went through his insurance [place]. I notified son Js that for the time being Eliquisis still covered and is available for picker tender helper. Based on the letter he received we may eventually have to complete PA but it will not let us complete one at this time as it is still not required. If it ever becomes required his pharmacy would senta PA request to us to complete. CONSTANCE MIX RN * Telephone Encounter - Jason Batres MD - 05/24/2023 1503 EDT Jeff will need a visit. 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 We could refer to the hospital health assistance program for help with medications. That would be my suggestion. Does he have enough Eliquis for now while we figure this out? Cordell- can you refer to hospital [facility] Jason Batres MD * Telephone Encounter - Tamika Vaz - 05/24/2023 1458 EDT Pt called stating he can not afford the Eliquis and is requesting we switch him to something more affordable. Please advise. Wants us to call son Nick with info. TAMIKA VAZ MA documented in this encounter Plan of Treatment Not on file documented as of this encounter Visit Diagnoses Not on filedocumented in this encounter Care Teams Security Patrol Officer Relationship Specialty Start Date End Date Jason Batres MD [address] [place] [address] PCP - General 07/27/11 12/31/23 [facility] Internal Medicine, [address] [place] [address] PCP - General 01/01/24 Alexus De La O, manager art 04/18/22 08/13/23 documented as of this encounter
--- OUTSIDE RECORDS SUMMARY | 2024-02-28 16:40 | XMS_ITS | Encounter Summary ---
Author Organization [facility] Address [address] [place] [address] Care Team Providers Care Senior Biostatistician Name Role Phone Jason Batres MD Primary Care Provi margarita Alexus De La O RN [facility] Internal Medicine, Primary Care Provi margarita Reason for Visit * Reason Onset Date Comments Wound Care 10/20/2022 Encounter Details Date Type Department Care Team (Late st Contact Info) Description 10/20/2022 Telephone [facility] - [address] [address] Elie Betancourt, DPCarol [address] [place] [phone] Wound Care Social History Tobacco Use Types [...] place to sleep or slept in a assisted (including now)? No 05/02/2022 Interpersonal Safety Answer [...] encounter Miscellaneous Notes * Telephone Encounter - Jailyn Otto - 10/20/2022 1038 EDT Reason for Call: Wound Care Summary: fareed Nunes just updating on wound of left heel. Wound is waste cotton cleaner and they are discontinuing medihoney and will redo the dry dressing. Appointment Offered? No Jailyn Otto 10/20/2022 10:40 documented in this encounter Plan of Treatment Not on file documented as of this encounter Visit Diagnoses Not on filedocumented in this encounter Care Teams Senior Biostatistician Relationship Specialty Start Date End Date Jason Batres MD [address] [place] [address] PCP - General 07/27/11 12/31/23 [facility] Internal Medicine, [address] [place] [address] PCP - General 01/01/24 Alexus De La O, wool tamper 04/18/22 08/13/23 documented as of this encounter
--- OUTSIDE RECORDS SUMMARY | 2024-02-28 16:40 | XMS_ITS | Encounter Summary ---
Author Organization [facility] Address [address] [place] [address] Care Team Providers Care Senior Erp Consultant Name Role Phone Jason Batres MD Primary Care Provi margarita Alexus De La O RN [facility] Internal Medicine, Primary Care Provi margarita Reason for Visit * Reason Onset Date Comments Update 11/07/2022 Encounter Details Date Type Department Care Team (Late st Contact Info) Description 11/07/2022 Telephone [facility] Foot & Ankle Program - [address] [address] Elie Betancourt, DPCarol [address] [place] [phone] Update Social History Tobacco Use Types Packs/Day [...] encounter Miscellaneous Notes * Telephone Encounter - Kathy Juarez RN - 11/07/2022 1004 EDT noted * Telephone Encounter - Jesús Gorman - 11/07/2022 09 EDT Reason for Call: Update Summary: Patient was seen yesterday and has a new blister on his left heal. It was deflated, about 5cm in diameter. Glenys put Badadine around the edges and covered with a dry dressing. Appointment Offered? N/A Jesús Gorman 11/07/2022 9:27 documented in this encounter Plan of Treatment Not on file documented as of this encounter Visit Diagnoses Not on filedocumented in this encounter Care Teams Senior Erp Consultant Relationship Specialty Start Date End Date Jason Batres MD [address] [place] [address] PCP - General 07/27/11 12/31/23 [facility] Internal Medicine, [place] [address] [place] [address] PCP - General 01/01/24 Alexus De La O, ornamental plasterer helper 04/18/22 08/13/23 documented as of this encounter
--- OUTSIDE RECORDS SUMMARY | 2024-02-28 16:40 | XMS_ITS | Encounter Summary ---
Author Organization [facility] Address [address] [place] [address] Care Team Providers Care Home Care Consultant Name Role Phone Jason Batres MD Primary Care Provi margarita Alexus De La O RN Unavailable Unavailable Reason for Visit * Reason Comments Follow-up Other Right BKA pain 7-8/1 0 Medications Refill insuilin Encounter Details Date Type Department Care Team (Late st Contact Info) Description 10/05/2022 10:30 EDT Office Visit Terry Batres MD [address] [address] Jason Batres MD [address] [place] [phone] Type 2 diabetes mellitus without complication, with long-term current use of insulin ([facility]) (Primary Dx); Hypothyroidism, unspecified type Social History Tobacco Use Types Packs/Day Years [...] place to sleep or slept in a intermediate (including now)? No 05/02/2022 Interpersonal Safety Answer Date Record ed Physically Hurt Never 10/05/2019 Verbally Threaten Not on file 10/05/2019 Sex and Gender Information Value Date Recorded Sex Assigned at Male 06/12/2023 11:45 EDT Legal Sex Male 18:05 EST Gender Identity Male 10/03/2019 21:06 EDT Sexual Orientation Straight 06/12/2023 11 :45 EDT documented as of this encounter Last Filed Vital Signs Vital Sign Reading Time Taken Comments Blood Pressure 96/60 10/05/2022 1038 EDT Pulse 128 10/05/2022 1038 EDT Temperature 36.6 ??C (97.9 ??F) 10/05/2022 1038 EDT Respiratory Rate - - Oxygen Saturation 95% 10/05/2022 1038 EDT Inhaled Oxygen Concentration - - Weight 128.8 kg (284 lb) 10/05/2022 1038 EDT Height - - Body Mass Index 36.46 05/14/2022 1530 EDT documented in this encounter Functional Status * Are you [...] Yes 11/20/2021 20:00 EDT Chelsea Nair RN * Do you have difficulty dressing or bathing? (5 years old or older) Answer Date of Assessment Author Yes 11/20/2021 20:00 EDT Chelsea Nair RN * Because of a physical, mental, [...] EDChelsea Martinez RN documented in this encounter Patient Instructions * Patient Instructions* Jason Batres MD - 10/05/2022 10:30 EDT Terry Batres MD PC My Care Plan Summary Name: Jeff Scott Date of Visit: 10/05/22 Summary of Today's Visit Topics and Plans: Type 2 diabetes mellitus without complication, with long-term current use of insulin ([facility]) ([facility]) - A1C is again very high- Jeff was well controlled when he was in the hospital but I think he is not eating well and forgetting his insulin I spoke with Jeff about taking his insulin and also spoke to his son who will touch base with Jeff and follow this more closely continue novolog 18 unites three times a day with meals - Continue lantus 55 units once at bedtime - Continue metformin 500 mg 2 tablets with breakfast and dinner Thigh pain, musculoskeletal, left - Continue using massager as needed for pain - Apply heat as needed for pain - Start taking methocarbamol 500 mg three times a day Episode of emesis and unresponsiveness - I am worried with Moe A1C of over 14 he may have metabolic abnormalities and I will check labstoday, CMP, CBC Discussed ED but Jeff looked better and back to his usual self by the end of the visit so will await labs and not refer to the ED My vital signs today: BP 96/60 Pulse (!) 128 Temp 36.6 ??C (97.9 ??F) (Temporal) Wt (!) 128.8 kg (284 lb) SpO2 95% BMI 36.46 kg/m?? My health goals today: Prioritized Patient Identified Goals: Jeff will Take [...] Complete Plan: refer to social work and/or enterprise resource analyst for support finding housing. Treatment Goals Met? See above Barriers Identified? Yes, memory problems, rides My Readiness to change? See above Medication Changes? No Understanding of Medications? Yes but we can help to remind you Educational Materials Given? No Self Management tools Given? No Other Referrals? Omaira will continue to contact you one every three months My Health Maintenance Checklist and Schedule: Health Maintenance Topic Date Due Social Determinants Of Health (SDOH) Never done Foot Exam Never done Pneumococcal Immunization (1 of 2 - PCV) Never done HIV Screening Never done Preventive Care Visit Never done Shingles Immunization (1 of 2) Never done Eye Exam 09/03/2018 Microalbumin/Creatinine Ratio 01/17/2019 Depression Screening 10/02/2020 [place] Prescription Monitoring System 09/21/2021 RSV Immunization ( or 60+ Years) (1 - 1-dose 60+ series) Never done COVID-19 Vaccine ( - 2022-24 season) 2022 Influenza Immunization (Adult) (1) 12/03/2022 Hemoglobin A1C (Ha1C) 04/07/2023 Lipid Profile Screening (Cholesterol) 10/06/2023 Tetanus (Adult) Immunization 01/09/2028 Colorectal Cancer Screening 07/30/2028 Pertussis (Adult) Immunization Completed Hepatitis C Screen Completed Follow up visit? Yes 3 months Comments: documented in this encounter Progress Notes * Jason Batres MD - 10/05/2022 1030 EDT Subjective: Patient ID: Jeff Scott is an 61 y.o. male. Chief Complaint Patient presents with ??? Follow-up ??? Other Right BKA pain 7-810 ??? Medications Refill insuilin HPI Jeff is here today for follow up. Overall, he feels that he is doing well. He finished PT last week and loved it. He feels that the PT helped his mobility. He is using his walker and feels that this also helps him with his mobility and independence- when he uses it. He has not fallen since he has been discharged from the hospital. He continues to do exercises three times a day on his own at home. He is still staying at a skilled nursing stay at a hotel but is working with social work on different housing. He needs a refill of his medications and insulin needles. As far as his pain, he is using his robaxin regularly which helps. He tells me his foot is doing excellent, there is just a small open area and he continues to see podiatry for this. 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 He saw Dr. Gonzalez recently and he was also seen by Dr. Arzate. He had a debridement yesterday and will be seen by orthopedic surgery again in three weeks. He will need the wound to heal in order to get a replacement socket. He does need to wear the prosthesis to get to the bathoom. He medeiros not want a wheelchair in his home. Home health is assessing the wound as well. He continues to follow up with Omaira De La O RN. He is trying to find a psychologist which has been difficult. They have not called him back when he has left messages. He is forgetting his long acting insulin. He has not been checking his FS. His A1C came back today at greater than 14. Jeff says that his mood has been ok. He says that its tough to be happy all the time but reports that he does feel like he is doing better. He says he used to be embarrassed to go out in public because he uses a walker and thought people were judging him. He less concerned about this and has been going grocery shopping and running errands more lately. He is also looking forward to finalizinghis divorce and is working on finding permanent housing through [employer]. While I was talking to Jeff he had an episode of emesis and unresponsiveness during that time. He was difficult to arouse for about 10-20 seconds and then was confused about the episode but shortly after was his usual self and he said he felt fine. Social Current Outpatient Medications on File Prior to [...] file prior to visit. No Known Allergies ROS - See HPI Objective: BP 96/60 Pulse (!) 128 Temp 36.6 ??C (97.9 ??F) (Temporal) Wt (!) 128.8 kg (284 lb) SpO2 95% BMI 36.46 kg/m?? Physical Exam Constitutional: General: He is not in acute distress. Appearance: He is well-developed and well-nourished. Ears: Tympanic membranes obscured due brown cerumen impaction bilaterally Neck: Comments: No carotid bruits Cardiovascular: Rate and Rhythm: Normal rate and regular rhythm. Heart sounds: Normal heart sounds. No murmur heard. Pulmonary: Effort: Pulmonary effort is normal. Breath sounds: Normal breath sounds. Musculoskeletal: Comments: Left leg shows no edema and no erythema, pain with palpation over quadricep muscles Neurological: Mental Status: He is alert and oriented to person, place, and time. Psychiatric: Mood and Affect: Mood and affect normal. Assessment: Jeff is a 61 year old male with a medical history significant for type II diabetes, craniopharyngioma, and memory loss who presents for follow up after a hospitalization for recurrent falls and instability. While in the hospital he had a hip replacement. He feels that his mobility has improved andhe is using his walker regularly. The pain he describes in his left upper leg is likely muscular innature. We discussed continuing with the massage, applying heat, and taking his methocarbamol 500 mg three times a day. Plan: Jeff was seen today for follow-up and leg pain. Diagnoses and all orders for this visit: Type 2 diabetes mellitus without complication, with long-term current use of insulin ([facility]) ([facility]) - A1C is again very high- Jeff was well controlled when he was in the hospital but I think he is not eating well and forgetting his insulin I spoke with Jeff about taking his insulin and also spoke to his son who will touch base with Jeff and follow this more closely continue novolog 18 unites three times a day with meals - Continue lantus 55 units once at bedtime - Continue metformin 500 mg 2 tablets with breakfast and dinner Thigh pain, musculoskeletal, left - Continue using massager as needed for pain - Apply heat as needed for pain - Start taking methocarbamol 500 mg three times a day Episode of emesis and unresponsiveness - I am worried with Moe A1C of over 14 he may have metabolic abnormalities and I will check labstoday, CMP, CBC Discussed ED but Jeff looked better and back to his usual self by the end of the visit so will await labs and not refer to the ED Jason Batres MD documented in this encounter Plan of Treatment Not on file documented as of this encounter Procedures Procedure Name Priority Date/Time Associated Diagnosis Comments LDL, DIRECT Today 10/05/2022 16:28 EDT Type 2 diabetes mellitus without complication, with long-term current use of insulin ([facility]) COMPLETE BLOOD COUNT AND DIFFERENTIAL Routine 10/05/2022 16:28 EDT Type 2 diabetes mellitus without complication, with long-term current use of insulin ([facility]) TSH Routine 10/05/2022 16:28 EDT Hypothyroidism, unspecified type HEMOGLOBIN A1C Routine 10/05/2022 16:28 EDT Type 2 diabetes mellitus without complication, with long-term current use of insulin ([facility]) LIPID PROFILE (INCLUDES CHOLESTEROL, TRIGLYCERIDES, HDL, LDL) Routine 10/05/2022 16:28 EDT Type 2 diabetes mellitus without complication, with long-term current use of insulin ([facility]) COMPREHENSIVE METABOLIC PANEL (CMP) Routine 10/05/2022 16:28 EDT Type 2 diabetes mellitus without complication, with long-term current use of insulin ([facility]) POCT HEMOGLOBIN A1C Routine 10/05/2022 Type 2 diabetes mellitus without complication, with long-term current use of insulin ([facility]) documented in this encounter Results * LDL, DIRECT (10/05/2022 16:28 EDT) LDL, Direct 128 <160 mg/dL 10/05/2022 19:43 EDT [facility] Comment: LDL, Direct Reference Ranges: Optimal: Less than 100 mg/dL Above Optimal: 100-129 mg/dL Borderline High: 130-159 mg/dL High: 160-189 mg/dL Very High: Greater than or equal to 190 mg/dL Blood VENOUS BLOOD / Unknown Venipuncture / Unknown 10/05/2022 16:28 EDT 10/05/2022 18:33 EDT us Jason Batres MD CHEMISTRY & BLOOD G ORDERABLES Final Result [facility] [address] [place] [id number] * (ABNORMAL) TSH (10/05/2022 16:28 EDT) TSH 10.30(H) 0.47 - 4.68 mIU/L 10/05/2022 19:44 EDT [facility] Blood VENOUS BLOOD / Unknown Venipuncture / Unknown 10/05/2022 16:28 EDT 10/05/2022 18:33 EDT Narrative [facility] - 10/05/2022 19:44 EDT The results of this assay can be falsely lowered due to the consumption of Biotin. us Jason Batres MD CHEMISTRY & BLOOD G ORDERABLES Final Result [facility] [address] [place] [address] * (ABNORMAL) LIPID PROFILE (INCLUDES CHOLESTEROL, TRIGLYCERIDES, HDL, LDL) (10/05/2022 16:28 EDT) Cholesterol 241(H) <200 mg/dL 10/05/2022 19:12 [facility] Comment:Note that therapeuti c goals will differ between patients based on cardiac risk factors and current medical therapy. HDL 35(L) >=40 mg/dl 10/05/2022 19:12 [facility] Comment:Note that therapeuti c goals will differ between patients based on cardiac risk factors and current medical therapy. LDL, Calculated 19:12 [facility] Comment: Note that therapeutic goals will differ between patients based on cardiac risk factors and current medical therapy. Calculated LDL invalid, triglycerides >400 mg/dL Direct LDL measurement added by reflex. Triglyceride 411(H) <=150 mg/dL 10/05/2022 19:12 [facility] Comment:Note that therapeuti c goals will differ between patients based on cardiac risk factors and current medical therapy. Chol/HDL Ratio 6.9 See Note 10/05/2022 19:12 [facility] Comment:No reference range h as been established for CHOL/HDL ratio. Non HDL Cholesterol 206(H) <160 mg/dL 10/05/2022 19:12 [facility] Comment:Note that therapeuti c goals will differ between patients based on cardiac risk factors and current medical therapy. Blood VENOUS BLOOD / Unknown Venipuncture / Unknown 10/05/2022 16:28 EDT 10/05/2022 18:33 EDT us Jason Batres MD CHEMISTRY & BLOOD G ORDERABLES Final Result Performing Organization Address [facility] Co de Phone Number [facility] [address] [place] [address] * (ABNORMAL) HEMOGLOBIN A1C (10/05/2022 16:28 EDT) Hemoglobin A1c 16.1(H) <5.7 % 10/05/2022 22:39 T [facility] Comment: Glycemic Status References: Normal: ??<5.7% Pre-Diabetes: ??5.7% - 6.4% Diagnostic of Diabetes: ??> or = 6.5% (if confirmed) Est Avg Glucose 415 mg/dL 22:39 [facility] Comment:The eAG represents t he A1c result expressed as average glucose in mg/dL. Blood VENOUS BLOOD / Unknown Venipuncture / Unknown 10/05/2022 16:28 EDT 10/05/2022 18:33 EDT Jason Batres MD CHEMISTRY & BLOOD G ORDERABLES Final Result Performing Organization Address [facility] de Phone Number [facility] [address] [place] [address] * (ABNORMAL) COMPLETE BLOOD COUNT AND DIFFERENTIAL (10/05/2022 16:28 EDT) WBC 8.18 4.00 - 10.40 K/cmm 10/05/2022 19:22 [facility] RBC 4.57 4.36 - 5.78 M/cmm 10/05/2022 19:22 [facility] Hemoglobin 13.6(L) 13.8 - 17.3 g/dL 10/05/2022 19:22 [facility] HCT 39.5 39.5 - 50.2 % 10/05/2022 19:22 [facility] MCV 86 81 - 95 fL 10/05/2022 19:22 [facility] MCH 29.8 27.6 - 33.0 pg 10/05/2022 19:22 [facility] MCHC 34.4 32.8 - 36.4 g/dL 10/05/2022 19:22 [facility] RDW-CV 14.0 <14.2 % 10/05/2022 19:22 [facility] RDW-SD 43.6 <46.0 fl 10/05/2022 19:22 [facility] PLT 225 141 - 377 K/cmm 10/05/2022 19:22 [facility] MPV 12.4 9.5 - 12.7 fL 10/05/2022 19:22 [facility] % Neutrophils 68.3 % 10/05/2022 19:22 [facility] % Lymphocytes 22.5 % 10/05/2022 19:22 [facility] % Monocytes 7.2 % 10/05/2022 19:22 [facility] % Eosinophils 1.0 % 10/05/2022 19:22 [facility] % Basophils 0.5 % 10/05/2022 19:22 [facility] % Immature Grans 0.5 % 10/06/19 19:22 [facility] Absolute Neutrophils 5.59 2.20 - 8.85 K/cmm 10/05/2022 19:22 [facility] Absolute Lymphocytes 1.84 1.09 - 3.30 K/cmm 10/05/2022 19:22 [facility] Absolute Monocytes 0.59 0.10 - 0.80 K/cmm 10/05/2022 19:22 [facility] Absolute Eosinophils 0.08 0.03 - 0.61 K/cmm 10/05/2022 19:22 [facility] ABS Basophils 0.04 0.01 - 0.11 K/cmm 10/05/2022 19:22 [facility] Absolute Immature Grans 0.04 0.00 - 0.06 K/cmm 10/05/2022 19:22 [facility] Type of Differential: Auto 10/05/2022 19:22 [facility] Blood VENOUS BLOOD / Unknown Venipuncture / Unknown 10/05/2022 16:28 EDT 10/05/2022 18:33 EDT us Jason Batres MD PACKAGES & DNA PROB E ORDERABLES Final Result [facility] [address] [place] [address] * (ABNORMAL) COMPREHENSIVE METABOLIC PANEL (CMP) (10/05/2022 16:28 EDT) Sodium 135(L) 136 - 145 mmol/L 10/05/2022 19:12 [facility] Potassium 4.5 3.5 - 5.0 mmol/L 10/05/2022 19:12 [facility] Chloride 97 96 - 110 mmol/L 10/05/2022 19:12 [facility] CO2 Total 22 22 - 32 mmol/L 10/05/2022 19:12 [facility] Glucose 358(H) 70 - 99 mg/dl 10/05/2022 19:12 [facility] BUN 18 10 - 26 mg/dL 10/05/2022 19:12 [facility] Creatinine 1.05 0.66 - 1.25 mg/dL 10/05/2022 19:12 [facility] eGFR 81 >60 mL/min/1.7 3m2 10/05/2022 19:12 [facility] Total Protein 7.6 6.3 - 8.2 g/dL 10/05/2022 19:12 [facility] Albumin 4.2 3.4 - 4.9 g/dL 10/05/2022 19:12 [facility] Alkaline Phosphatase 104 38 - 126 U/L 10/05/2022 19:12 [facility] AST 38 15 - 46 U/L 10/05/2022 19:12 EDT [facility] ALT 45 <50 U/L 10/05/2022 19:12 EDT [facility] Bilirubin, Total <0.5 <1.4 mg/dL 10/06/19 19:12 EDT [facility] Calcium 9.7 8.5 - 10.5 mg/dL 10/05/2022 19:12 EDT [facility] Albumin/Globulin Ratio 1.2 1.0 - 2.5 g/dL 10/05/2022 19:12 EDT [facility] Anion Gap 16(H) 5 - 14 mmol/L 10/05/2022 19:12 EDT [facility] Blood VENOUS BLOOD / Unknown Venipuncture / Unknown 10/05/2022 16:28 EDT 10/05/2022 18:33 EDT us Jason Batres MD CHEMISTRY & BLOOD G ORDERABLES Final Result [facility] [address] [place] [address] * POCT HEMOGLOBIN A1C (10/05/2022) Hemoglobin A1c, POC >14 <=5.7 % [facility] POINT OF CARE Blood CAPILLARY BLOOD / Unknown 10/05/2022 us Jason Batres MD POINT OF CARE TEST ORDERABLES Final Result [facility] POINT OF CARE documented in this encounter Visit Diagnoses Diagnosis Type 2 diabetes mellitus without complication, with long-term current use of insulin ([facility])- Primary Hypothyroidism, unspecified type documented in this encounter Care Teams Home Care Consultant Relationship Specialty Start Date End Date Jason Batres MD [address] [place] [id number] PCP - General 07/27/11 12/31/23 Alexus De La O, last sorter 04/18/22 08/13/23 documented as of this encounter
--- OUTSIDE RECORDS SUMMARY | 2024-02-28 16:40 | XMS_ITS | Encounter Summary ---
Author Organization [facility] Address [address] [place] [address] Care Team Providers Care Outreach Representative Name Role Phone Jason Batres MD Primary Care Provi margarita Alexus De La O RN [facility] Internal Medicine, Primary Care Provi margarita Reason for Visit * Reason Onset Date Comments Medications Refill 04/05/2023 Encounter Details Date Type Department Care Team (Late st Contact Info) Description 04/05/2023 Refill Terry Batres MD [address] [address] Jason Batres MD [address] [place] [phone] Medications Refill Social History Tobacco Use [...] place to sleep or slept in a residential (including now)? No 05/02/2022 Interpersonal Safety Answer [...] Chelsea Kwon RN documented in this encounter Ordered Prescriptions Prescription Sig Dispense Quantity Refills Last Filled Start Date End Date pantoprazole (PROTONIX) 40 mg tablet Take 1 Tablet by mouth daily before breakfast. 90 Tablet 3 04/05/2023 sertraline (ZOLOFT) 50 mg tablet Take 1 Tablet by mouth daily. 90 Tablet 3 04/05/2023 levothyroxine (SYNTHROID) 112 mcg tablet Take 1 Tablet by mouth daily. 90 Tablet 3 04/05/2023 atorvastatin (LIPITOR) 20 mg tablet Take 1 Tablet by mouth daily. 90 Tablet 3 04/05/2023 apixaban (ELIQUIS) 5 mg tablet Take 1 Tablet by mouth 2 times daily. 180 Tablet 3 04/05/2023 documented in this encounter Miscellaneous Notes * Telephone Encounter - Tamika Segovia - 04/05/2023 1409 EST Pharmacy refill documented in this encounter Plan of Treatment Not on file documented as of this encounter Visit Diagnoses Not on filedocumented in this encounter Discontinued Medications Medication Sig Discontinue Reason Start Date End Da te apixaban (ELIQUIS) 5 mg tablet Take 1 Tablet by mouth 2 times daily. Reorder 10/30/2022 04/05/2023 atorvastatin (LIPITOR) 20 mg tablet Take 1 Tablet by mouth daily. Reorder 10/30/2022 04/05/2023 levothyroxine (SYNTHROID) 112 mcg tablet Take 1 Tablet by mouth daily. Reorder 10/30/2022 04/05/2023 sertraline (ZOLOFT) 50 mg tablet Take 1 Tablet by mouth daily. Reorder 10/30/2022 04/05/2023 pantoprazole (PROTONIX) 40 mg tablet Take 1 Tablet by mouth daily before breakfast. Reorder 10/30/2022 04/05/2023 documented as of this encounter Care Teams Outreach Representative Relationship Specialty Start Date End Date Jason Batres MD [address] [place] [address] PCP - General 07/27/11 12/31/23 [facility] Internal Medicine, [address] [place] [address] PCP - General 01/01/24 Alexus De La O, geothermal operating engineer 04/18/22 08/13/23 documented as of this encounter
--- OUTSIDE RECORDS SUMMARY | 2024-02-28 16:40 | XMS_ITS | Encounter Summary ---
Author Organization [facility] Address [address] [place] [address] Care Team Providers Care Third Loader Name Role Phone Jason Batres MD Primary Care Provi margarita Alexus De La O RN Unavailable Unavailable Reason for Visit * Reason Comments Medications Refill Encounter Details Date Type Department Care Team (Late st Contact Info) Description 01/09/2023 Refill Terry Batres MD [address] [address] Jason Batres MD [address] [place] [phone] Medications Refill Social History Tobacco Use [...] Refills Last Filled Start Date End Date metFORMIN (GLUCOPHAGE) 500 mg tablet TAKE TWO TABLETS BY MOUTH TWICE DAILY WITH BREAKFAST AND DINNER 120 Tablet 2 01/09/2023 documented in this encounter Plan of Treatment Not on file documented as of this encounter Visit Diagnoses Not on filedocumented in this encounter Discontinued Medications Medication Sig Discontinue Reason Start Date End Da te metFORMIN (GLUCOPHAGE) 500 mg tablet Take 2 Tablets by mouth 2 times daily with breakfast and dinner. 10/30/2022 01/09/2023 documented as of this encounter Care Teams Third Loader Relationship Specialty Start Date End Date Jason Batres MD [address] [place] [id number] PCP - General 07/27/11 12/31/23 Alexus De La O RN Care Manager 04/18/22 08/13/23 documented as of this encounter
--- OUTSIDE RECORDS SUMMARY | 2024-02-28 16:40 | XMS_ITS | Encounter Summary ---
Author Organization [facility] Address [address] [place] [address] Care Team Providers Care Furniture Maker Name Role Phone Jason Batres MD Primary Care Provi margarita Alexus De La O RN [facility] Internal Medicine, Primary Care Provi margarita Reason for Visit * Reason Onset Date Comments Medications Refill 10/30/2022 Encounter Details Date Type Department Care Team (Late st Contact Info) Description 10/30/2022 Refill Terry Batres MD [address] [address] Jason Batres MD [address] [place] [phone] Medications Refill Social History Tobacco Use [...] place to sleep or slept in a long term (including now)? No 05/02/2022 Interpersonal Safety Answer [...] Refills Last Filled Start Date End Date methocarbamoL (ROBAXIN) 500 mg tablet Take 1 Tablet by mouth every 8 hours as needed for Pain or Muscle Spasms. 90 Tablet 3 10/30/2022 lancets Test BID 100 Each 1 10/30/2022 gabapentin (NEURONTIN) 300 mg capsule Take 1 Capsule by mouth 3 times daily. 270 Capsule 3 10/30/2022 pantoprazole (PROTONIX) 40 mg tablet Take 1 Tablet by mouth daily before breakfast. 90 Tablet 3 10/30/2022 4 metFORMIN (GLUCOPHAGE) 500 mg tablet Take 2 Tablets by mouth 2 times daily with breakfast and dinner. 180 Tablet 3 10/30/2022 3 sertraline (ZOLOFT) 50 mg tablet Take 1 Tablet by mouth daily. 90 Tablet 3 10/30/2022 4 losartan (COZAAR) 25 mg tablet Take 1 Tablet by mouth daily. 90 Tablet 3 10/30/2022 4 levothyroxine (SYNTHROID) 112 mcg tablet Take 1 Tablet by mouth daily. 90 Tablet 3 10/30/2022 4 insulin glargine (LANTUS SOLOSTAR/SEMGLEE) 100 unit/mL (3 mL) injection pen Inject 55 Units into the skin at bedtime. 15 mL 11 10/30/2022 4 atorvastatin (LIPITOR) 20 mg tablet Take 1 Tablet by mouth daily. 90 Tablet 3 10/30/2022 4 apixaban (ELIQUIS) 5 mg tablet Take 1 Tablet by mouth 2 times daily. 180 Tablet 3 10/30/2022 4 documented in this encounter Miscellaneous Notes * Telephone Encounter - Tangela [place] - 10/30/2022 1625 EDT Refills documented in this encounter Plan of Treatment Not on file documented as of this encounter Visit Diagnoses Not on filedocumented in this encounter Discontinued Medications Medication Sig Discontinue Reason Start Date End Da te apixaban (ELIQUIS) 5 mg tablet Take 1 Tablet by mouth 2 times daily. Reorder 07/14/2022 10/30/2022 atorvastatin (LIPITOR) 20 mg tablet Take 1 Tablet by mouth daily. Reorder 07/14/2022 10/30/2022 gabapentin (NEURONTIN) 300 mg capsule Take 1 Capsule by mouth 3 times daily. Reorder 07/14/2022 10/30/2022 insulin glargine (LANTUS SOLOSTAR/SEMGLEE) 100 unit/mL (3 mL) injection pen Inject 55 Units into the skin at bedtime. Reorder 06/14/2022 10/30/2022 levothyroxine (SYNTHROID) 112 mcg tablet Take 1 Tablet by mouth daily. Reorder 07/14/2022 10/30/2022 lancets Test BID. Reorder 11/11/2013 10/30/2022 losartan (COZAAR) 25 mg tablet Take 1 Tablet by mouth daily. Reorder 08/21/2022 10/30/2022 sertraline (ZOLOFT) 50 mg tablet Take 1 Tablet by mouth daily. Reorder 07/14/2022 10/30/2022 metFORMIN (GLUCOPHAGE) 500 mg tablet Take 2 Tablets by mouth 2 times daily with breakfast and dinner. Reorder 07/14/2022 10/30/2022 pantoprazole (PROTONIX) 40 mg tablet Take 1 Tablet by mouth daily before breakfast. Reorder 07/14/2022 10/30/2022 methocarbamoL (ROBAXIN) 500 mg tablet Take 1 Tablet by mouth every 8 hours as needed for Pain or Muscle Spasms. Reorder 07/12/2022 10/30/2022 documented as of this encounter Care Teams Furniture Maker Relationship Specialty Start Date End Date Jason Batres MD [address] [place] [id number] PCP - General 07/27/11 12/31/23 [facility] Internal Medicine, [place] [address] [place] [address] PCP - General 01/01/24 Alexus De La O, brass finisher 04/18/22 08/13/23 documented as of this encounter
--- OUTSIDE RECORDS SUMMARY | 2024-02-28 16:40 | XMS_ITS | Encounter Summary ---
Author Organization [facility] Address [address] [place] [address] Care Team Providers Care Licensed Professional Counselor Name Role Phone Jason Batres MD Primary Care Provi margarita Alexus De La O RN [facility] Internal Medicine, Primary Care Provi margarita Reason for Visit * Reason Onset Date Comments Update 06/13/2023 Encounter Details Date Type Department Care Team (Late st Contact Info) Description 06/13/2023 Telephone [facility] Physical Medicine & Rehabilitation - [address] [place] [address] Arianne Gonzalez MD [address] [place] [phone] Update Social History Tobacco Use Types Packs/Day [...] encounter Miscellaneous Notes * Telephone Encounter - Natividad Dalton MA - 06/13/2023 1239 EDT Jeff called wanting Dr. Gonzalez to call Elbert from [employer] in ref to a new foot for his Prothesis. NATIVIDAD DALTON MA 06/13/2023 12:40 documented in this encounter Plan of Treatment Not on file documented as of this encounter Visit Diagnoses Not on filedocumented in this encounter Care Teams Licensed Professional Counselor Relationship Specialty Start Date End Date Jason Batres MD [address] [place] [address] PCP - General 07/27/11 12/31/23 [facility] Internal Medicine, [address] [place] [address] PCP - General 01/01/24 Alexus De La O, fire protection engineer 04/18/22 08/13/23 documented as of this encounter
--- OUTSIDE RECORDS SUMMARY | 2024-02-28 16:40 | XMS_ITS | Encounter Summary ---
Author Organization [facility] Address [address] [place] [address] Care Team Providers Care Head Scorer Name Role Phone Jason Batres MD Primary Care Provi margarita Alexus De La O RN [facility] Internal Medicine, Primary Care Provi margarita Reason for Visit * Reason Comments Medications Refill Encounter Details Date Type Department Care Team (Late st Contact Info) Description 03/19/2023 Refill Terry Batres MD [address] [address] Jason Batres MD [address] [place] [phone] Medications Refill Social History Tobacco Use [...] on filedocumented in this encounter Care Teams Head Scorer Relationship Specialty Start Date End Date Jason Batres MD [address] [place] [address] PCP - General 07/27/11 12/31/23 [facility] Internal Medicine, [place] [address] [place] [address] PCP - General 01/01/24 Alexus De LaO, architect naval 04/18/22 08/13/23 documented as of this encounter
--- OUTSIDE RECORDS SUMMARY | 2024-02-28 16:40 | XMS_ITS | Encounter Summary ---
Author Organization [facility] Address [address] [place] [address] Care Team Providers Care Backup Engineer Name Role Phone Jason Batres MD Primary Care Provi margarita Alexus De La O RN [facility] Internal Medicine, Primary Care Provi margarita Reason for Visit * Reason Onset Date Comments Home Health 03/15/2023 Encounter Details Date Type Department Care Team (Late st Contact Info) Description 03/15/2023 Telephone [place] [facility], [address] [facility] [address] [place] [address] Constance Mix, JARVIS Home Health Social History Tobacco Use Types Packs/Day Years [...] place to sleep or slept in a penitentiary (including now)? No 05/02/2022 Interpersonal Safety Answer [...] Telephone Encounter - Constance Mix RN - 03/15/2023 1638 EST Non urgent message left from [place] with [facility]. 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 He is applying a band aid for protection. He has f/u with ortho next week to talk about getting new prosthesis. CONSTANCE MIX RN documented in this encounter Plan of Treatment Not on file documented as of this encounter Visit Diagnoses Not on filedocumented in this encounter Care Teams Backup Engineer Relationship Specialty Start Date End Date Jason Batres MD [address] [place] [address] PCP - General 07/27/11 12/31/23 [facility] Internal Medicine, [address] [place] [address] PCP - General 01/01/24 Alexus De La O, sole filler 04/18/22 08/13/23 documented as of this encounter
--- OUTSIDE RECORDS SUMMARY | 2024-02-28 16:40 | XMS_ITS | Encounter Summary ---
Author Organization [facility] Address [address] [place] [address] Care Team Providers Care Continuous Weld Pipe Mill Supervisor Name Role Phone Jason Batres MD Primary Care Provi margarita Alexus De La O RN [facility] Internal Medicine, Primary Care Provi margarita Reason for Visit * Reason Onset Date Comments Hip Pain 02/12/2023 Encounter Details Date Type Department Care Team (Late st Contact Info) Description 02/12/2023 Orders Only [facility] Total Joint Program - [address] [address] Sachin Burroughs MD MSc [address] [phone] Status post left hip replacement (Primary Dx) Social History Tobacco Use Types [...] Chelsea Nair RN documented in this encounter Plan of Treatment Not on file documented as of this encounter Results * XR HIP RIGHT 1 VIEW (02/14/2023 10:43 EST) Anatomical Region Laterality Modality Lower Extremities Right Computed Radio graphy 02/14/2023 16:5 0 EST Impressions 02/14/2023 16:50 EST FINDINGS / IMPRESSION: * ??Left hip arthroplasty without periprosthetic fracture or lucency. * ??Severe right hip degenerative changes. * ??Osteopenia. * ??XR HIP RIGHT 1 VIEW 1 views ?? [id number] Narrative 02/14/2023 16:50 EST EXAM/TECHNIQUE: 02/14/2023 10:30 AM ??XR HIP RIGHT 1 VIEW ?? HISTORY: ??left brent, right for comparison;Z96.642:Status post left hip replacement Procedure Note Alfa Freeman MD - 02/14/2023 EXAM/TECHNIQUE: 02/14/2023 10:30 AM XR HIP RIGHT 1 VIEW HISTORY: left brent, right for comparison;Z96.642:Status post left hipreplacement IMPRESSION FINDINGS / IMPRESSION: * Left hip arthroplasty without periprosthetic fracture or lucency. * Severe right hip degenerative changes. * Osteopenia. * XR HIP RIGHT 1 VIEW 1 views [id number] Sachin Burroughs MD MSc [facility] IMG DIAGNOSTIC I MAGING ORDERABLES Final Result * XR HIP LEFT 2-3 VIEWS, OPTIONAL PELVIS (02/14/2023 10:43 EST) Anatomical Region Laterality Modality Lower Extremities Left Computed Radio graphy 02/14/2023 16:5 0 EST Impressions 02/14/2023 16:50 EST FINDINGS / IMPRESSION: * ??Left hip arthroplasty without periprosthetic fracture or lucency. * ??Osteopenia. * ??XR HIP LEFT 2-3 VIEWS, OPTIONAL PELVIS 2 views ?? [id number] Narrative 02/14/2023 16:50 EST EXAM/TECHNIQUE: 02/14/2023 10:30 AM ??XR HIP LEFT 2-3 VIEWS, OPTIONAL PELVIS ?? HISTORY: ??left brent;Z96.642:Status post left hip replacement Procedure Note Alfa Freeman MD - 02/14/2023 EXAM/TECHNIQUE: 02/14/2023 10:30 AM XR HIP LEFT 2-3 VIEWS, OPTIONALPELVIS HISTORY: left brent;Z96.642:Status post left hip replacement IMPRESSION FINDINGS / IMPRESSION: * Left hip arthroplasty without periprosthetic fracture or lucency. * Osteopenia. * XR HIP LEFT 2-3 VIEWS, OPTIONAL PELVIS 2 views [id number] Sachin Burroughs MD MSc FRCSC IMG DIAGNOSTIC I MAGING ORDERABLES Final Result documented in this encounter Visit Diagnoses Diagnosis Status post left hip replacement- Primary Hip joint replacement by other means Status post left hip replacement Hip joint replacement by other means documented in this encounter Care Teams Continuous Weld Pipe Mill Supervisor Relationship Specialty Start Date End Date Jason Batres MD [address] [place] [address] PCP - General 07/27/11 12/31/23 [facility] Internal Medicine, [address] [place] [address] PCP - General 01/01/24 Alexus De La O, 911 emergency services dispatcher 04/18/22 08/13/23 documented as of this encounter
--- OUTSIDE RECORDS SUMMARY | 2024-02-28 16:40 | XMS_ITS | Encounter Summary ---
Author Organization [facility] Address [address] [place] [address] Care Team Providers Care Real Estate Associate Name Role Phone Jason Batres MD Primary Care Provi margarita Alexus De La O RN Unavailable Unavailable Reason for Visit * Reason Comments Follow-up Encounter Details Date Type Department Care Team (Late st Contact Info) Description 02/14/2023 10:45 EST Office Visit [facility] Total Joint Program - [address] [address] Sachin Burroughs MD MSc [address] [phone] Status post total replacement of left hip (Primary Dx) Social History Tobacco Use Types [...] documented in this encounter Progress Notes * Sachin Burroughs MD - 02/14/2023 1045 EST It was a pleasure to reassess Jeff in our orthopedic clinic today. As you know, this 62-year-old gentleman underwent a left posterior total hip replacement by myself in February 2022. He has done very well postoperatively. He denies any fevers or chills. He denies any hip pain. His right stump wound is nearly healed. He denies any concerns for infection. On exam, the patient had pain-free left hip range of motion. Incision well- healed with no sign of infection. He was neurovascularly intact. His x-rays demonstrate the left total hip components in good position with no hardware complications. I am very pleased with the patient's progress today. At this point he should continue to do his exercises. All of his questions were answered and he was pleased with our interaction today. He will see me back in follow-up in 2 years for routine surveillance with new x-rays of the left hip. documented in this encounter Plan of Treatment Not on file documented as of this encounter Visit Diagnoses Diagnosis Status post total replacement of left hip- Primary documented in this encounter Care Teams Real Estate Associate Relationship Specialty Start Date End Date Jason Batres MD [address] [place] [address] PCP - General 07/27/11 12/31/23 Alexus De La O RN Care Manager 04/18/22 08/13/23 documented as of this encounter
--- OUTSIDE RECORDS SUMMARY | 2024-02-28 16:40 | XMS_ITS | Encounter Summary ---
Author Organization [facility] Address [address] [place] [address] Care Team Providers Care Stable Attendant Name Role Phone Jason Batres MD Primary Care Provi margarita Edmundo De La O RN Unavailable Unavailable Encounter Details Date Type Department Care Team (Late st Contact Info) Description 03/06/2023 Patient Outreach [facility] Adult Primary Care - [place] [address] [place] [address] Edmundo De La O, JARVIS Social History [...] Answer Entry Date Author No 11/20/2021 20:00 FREDERICT Chelsea Nair RN documented in this encounter Progress Notes * Edmundo De La O RN - 03/06/2023 1359 EST [facility] Care Management Follow Up lead nurse followed up with Jeff by phone for medication management. . TOPIC OF CONVERSATION: Reviewed assessment and plan from previous visit with patient. Engaged patient in conversation related to positive behavior change, self- management, goal setting and action planning using motivational interviewing and active listening. Jeff said that the skin on his stump is almost healed. He said Home Health comes 2 times weekly todo wound care, and Jeff says he has followed their instructions carefully in orddr to promote the best chance at complete healing. Jeff said he has an appointment 03/08/23, with Dr. Gonzalez in physical medicine to be fitted for a new prosthesis and Jeff is looking forward to this. Jeff iis eager to move on with his life with a new prosthesis. Jeff reports that he is testing his blood glucose 3 times daily, and his sugar runs from 120's to 180's. He said he is taking his insulin 3 times daily with meals. He reports taking all other mediations as directed including his Lantus at bedtime. Jeff said he is working with home Cross[employer]ader , Ronda, to find housing. He has expanded his searchand applications beyond [facility], because he is eager to have his own place especially when he gets a new prosthesis and is able to get around independently. We discussed getting a new 2023 calendar so Jeff can keep trak of his appointments. Jeff agreed that this is important. Prioritized Patient Identified Goals: 1. Jeff will Take Medications and insulin as directed on a regular basis every day. Achievement towards goals:In Progress. 2. Patient will test blood glucose 3 times daily before meals and write down the results in a log. Achievement towards goal: In Progress 3. New Goal: Jeff will get a 2023 calendar and record his upcoming appointments . Plan: CM will follow-up in three months or sooner if needee. EDMUNDO DE LA O RN 03/06/2023 14:49 documented in this encounter Plan of Treatment Not on file documented as of this encounter Visit Diagnoses Not on filedocumented in this encounter Care Teams Stable Attendant Relationship Specialty Start Date End Date Jason Batres MD [address] [place] [address] PCP - General 07/27/11 12/31/23 Edmundo De La O, lead nurse 04/18/22 08/13/23 documented as of this encounter
--- OUTSIDE RECORDS SUMMARY | 2024-02-28 16:40 | XMS_ITS | Encounter Summary ---
Author Organization [facility] Address [address] [place] [address] Care Team Providers Care Panel Raiser Operator Name Role Phone Jason Batres MD Primary Care Provi margarita Alexus De La O RN [facility] Internal Medicine, Primary Care Provi margarita Reason for Visit * Reason Onset Date Comments Medications Refill 03/19/2023 Encounter Details Date Type Department Care Team (Late st Contact Info) Description 03/19/2023 Refill Terry Batres MD [address] [address] Jason Batres MD [address] [place] [phone] Medications Refill Social History Tobacco Use [...] place to sleep or slept in a [facility] (including now)? No 05/02/2022 Interpersonal Safety Answer [...] Last Filled Start Date End Date insulin glargine (LANTUS SOLOSTAR/SEMGLEE) 100 unit/mL (3 mL) injection pen Inject 55 Units into the skin at bedtime. 15 mL 11 03/19/2023 07/13/2023 insulin aspart U-100 (NOVOLOG FLEXPEN) 100 unit/mL (3 mL) injectable pen Inject 18 Units into the skin 3 times daily with meals. 15 mL 11 03/19/2023 07/13/2023 documented in this encounter Plan of Treatment Not on file documented as of this encounter Visit Diagnoses Not on filedocumented in this encounter Discontinued Medications Medication Sig Discontinue Reason Start Date End Da te insulin aspart U-100 (NOVOLOG FLEXPEN) 100 unit/mL (3 mL) injectable pen Inject 18 Units into the skin 3 times daily with meals. Reorder 07/17/2022 03/19/2023 insulin glargine (LANTUS SOLOSTAR/SEMGLEE) 100 unit/mL (3 mL) injection pen Inject 55 Units into the skin at bedtime. Reorder 10/30/2022 03/19/2023 documented as of this encounter Care Teams Panel Raiser Operator Relationship Specialty Start Date End Date Jason Batres MD [address] [place] [address] PCP - General 07/27/11 12/31/23 [facility] Internal Medicine, [address] [place] [address] PCP - General 01/01/24 Alexus De La O, painter interior finish 04/18/22 08/13/23 documented as of this encounter
--- OUTSIDE RECORDS SUMMARY | 2024-02-28 16:40 | XMS_ITS | Encounter Summary ---
Author Organization [facility] Address [address] [place] [address] Care Team Providers Care Change Management Facilitator Name Role Phone Jason Batres MD Primary Care Provi margarita Alexus De La O RN Unavailable Unavailable Reason for Visit * Reason Comments Rash Encounter Details Date Type Department Care Team (Late st Contact Info) Description 06/11/2023 10:30 EDT Office Visit Terry Batres MD [facility] [address] [place] [address] Carmelita Hogue, MAGNETIC HEALER [address] [place] [address] Toe injury, left, initial encounter (Primary Dx); Rash Social History Tobacco Use Types Packs/Day Years [...] Chelsea Nair RN documented in this encounter Patient Instructions * Patient Instructions* Carmelita Hogue APRN - 06/11/2023 10:30 EDT I am going to start you on an oral antibiotic for your toe injury to protect from potential infection. The antibiotic is called keflex and it is taken three times a day for one week. Continue to monitor your toe and call the office for any redness, pain, pus like drainage I am not certain what your rash is from but it looks like contact dermatitis (skin came into contact with something it does not agree with). Leilani ordered a steroid cream that you should apply twice a day for two weeks. If it does not improve I would want to refer you to a sew out operator. documented in this encounter Ordered Prescriptions Prescription Sig Dispense Quantity Refills Last Filled Start Date End Date fluocinonide (LIDEX) 0.05 % cream Apply to affected area on chest BID x 2 weeks 30 g 06/11/2023 cephalexin (KEFLEX) 500 mg capsule Take 1 Capsule by mouth 3 times daily for 7 days. 21 Capsule 06/11/2023 4 documented in this encounter Progress Notes * Carmelita Hogue APRN - 06/11/2023 1030 EDT Subjective: Patient ID: Jeff Scott is an 62 y.o. male. Chief Complaint Patient presents with Rash HPI Jeff presents with two concerns. Last week he caught his left great toenail on a carpet and part of the nail pulled off. He was able to remove the remainder of the nail by gently wiggling it. He hasbeen applying a wound care spray 3 times a day and keeping it covered. His son thought he should have it examined given his history of diabetes, neuropathy, and osteomyelitis with amputation. He saysit is not painful, however his sensation is decreased from his neuropathy. He also mentions a rash he has had on his chest for 2-3 months. He says it is not spreading. It is very itchy. He has been applying hydrogen peroxide and moisturizer. 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 Hypothyroidism Acute osteomyelitis of phalanx of foot ([facility]) Type 2 diabetes mellitus with diabetic polyneuropathy, with long-term current use of insulin ([facility]) Hyperplastic polyp of descending colon Acute osteomyelitis of right ankle or foot ([facility]) Deep vein thrombosis (DVT) of proximal vein of left lower extremity, unspecified chronicity ([facility]) Type 2 diabetes mellitus without complication, with long-term current use of insulin ([facility]) 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 ([facility]) Recurrent falls Failure to thrive in adult Hx of BKA, right ([facility]) Chronic deep vein thrombosis (DVT) of proximal vein of left lower extremity ([facility]) Hypothyroidism, unspecified type Gastroesophageal reflux disease with esophagitis and hemorrhage Benign prostatic hyperplasia, unspecified whether lower urinary tract symptoms present Other chronic pain Gait instability Adjustment disorder with mixed anxiety and depressed mood Anemia Status post total replacement of left hip Past Medical History: Diagnosis Date Anemia Arthritis Back pain Diabetes mellitus ([facility]) Hypothyroidism Wears glasses Past Surgical History: Procedure Laterality Date BRAIN SURGERY s/p tumor EYE SURGERY FOOT SURGERY Right 03/23/2016 Right partial 2nd toe amputation FOOT SURGERY Right 10/05/2019 I&D, amputation 2nd & 3rd James calvillo Family History Problem Relation Age of Onset Stroke Mother 71 Cancer Father 65 lung cancer Colon Cancer Neg Hx Social Social History Tobacco Use Smoking status: Never Smokeless tobacco: Former Types: Chew Vaping Use Vaping Use: Never used Substance Use Topics Alcohol use: No Drug use: No Current Outpatient Medications on File Prior to [...] area BID until resolved 45 g 1 FREESTYLE FREEDOM LITE Use as directed as needed (glucose monitoring). 1 Each 0 gabapentin (NEURONTIN) 300 mg capsule Take 1 Capsule by mouth 3 times daily. 270 Capsule 3 insulin aspart U-100 (NOVOLOG FLEXPEN) 100 unit/mL (3 mL) injectable pen Inject 18 Units into the skin 3 times daily with meals. 15 mL 11 insulin glargine (LANTUS SOLOSTAR/SEMGLEE) 100 unit/mL (3 mL) injection pen Inject 55 Units into the skin at bedtime. 15 mL 11 lancets Test BID 100 Each 1 levothyroxine [...] file prior to visit. No Known Allergies Review of Systems Constitutional: Negative. Skin: Positive for itching and rash. Left great toe injury - See HPI Objective: There were no vitals taken for this visit. Physical Exam Constitutional: General: He is not in acute distress. Appearance: He is well-developed and well-nourished. Skin: Comments: Left great toenail absent, erythema along edge of nailbed with mild swelling. No drainage Bilateral chest with multiple scabbed papules and excoriations. Skin is thickened. Assessment: Left toe injury Rash of chest Plan: Jeff was seen today for rash. Diagnoses and all orders for this visit: Toe injury, left, initial encounter Rash Other orders - cephalexin (KEFLEX) 500 mg capsule; Take 1 Capsule by mouth 3 times daily for 7 days. - fluocinonide (LIDEX) 0.05 % cream; Apply to affected area on chest BID x 2 weeks Left toe injury- He has mild erythema and given his history of diabetes and previous amputation I recommended he start on an antibiotic Keflex 500mg TID x 7 days Continue wound care Rash of chest- Possibly contact dermatitis Apply fluocinonide cream BID x 1-2 weeks Contingency: dermatology Carmelita Hogue APRN documented in this encounter Plan of Treatment Not on file documented as of this encounter Visit Diagnoses Diagnosis Toe injury, left, initial encounter- Primary Rash Rash and other nonspecific skin eruption documented in this encounter Care Teams Change Management Facilitator Relationship Specialty Start Date End Date Jason Batres MD [address] [place] [id number] PCP - General 07/27/11 12/31/23 Alexus De La O, insurance writer 04/18/22 08/13/23 documented as of this encounter
--- OUTSIDE RECORDS SUMMARY | 2024-02-28 16:40 | XMS_ITS | Encounter Summary ---
Author Organization [facility] Address [address] [place] [address] Care Team Providers Care Field Professional Name Role Phone Jason Batres MD Primary Care Provi margarita Alexus De La O RN Unavailable Unavailable Reason for Visit * Reason Onset Date Comments Wound Care 09/28/2022 Encounter Details Date Type Department Care Team (Late st Contact Info) Description 09/28/2022 Telephone [facility] [address] [place] [address] Constance Mix, insole presser Social History Tobacco Use Types Packs/Day Years [...] Telephone Encounter - Constance Mix RN - 09/29/2022 0821 EDT Glenys @ [facility] notified of approval of wound care recs below * Telephone Encounter - Herman Horton DNP - 09/28/2022 1653 EDT That sounds fine with me. Livan * Telephone Encounter - Constance Mix RN - 09/28/2022 1544 EDT Message left from Glenys with [facility] re: pt wound care for pressure ulcer on rt BKA site. They have tried radiagel dressing and it does not seem to be working, it is quite macerated. Their wound nurse is suggesting they switch to melgisorb ag to wound bed and covering with non-bordered mepilex foam and securing with medipore tape. They are asking for approval to switch to this wound care. He is also going to be seeing manuscripts archivist next Sunday to attempt to be fitted for new prosthesis. CONSTANCE MIX RN documented in this encounter Plan of Treatment Not on file documented as of this encounter Visit Diagnoses Not on filedocumented in this encounter Care Teams Field Professional Relationship Specialty Start Date End Date Jason Batres MD [address] [place] [id number] PCP - General 07/27/11 12/31/23 Alexus De La O, repossession agent 04/18/22 08/13/23 documented as of this encounter
--- OUTSIDE RECORDS SUMMARY | 2024-02-28 16:40 | XMS_ITS | Encounter Summary ---
Author Organization [facility] Address [address] [place] [address] Care Team Providers Care Salesperson Sheet Music Name Role Phone Jason Batres MD Primary Care Provi margarita Edmundo De La O RN Unavailable Unavailable Encounter Details Date Type Department Care Team (Late st Contact Info) Description 12/11/2022 Patient Outreach Terry Batres MD [address] [phone] Edmundo De La O, JARVIS Social History [...] medical appointments or from getting medications? No 02/2 10/2022 In the past 12 months, has l [...] * Edmundo De La O RN - 12/11/2022 0950 EDT [facility] Follow Up fluoroscope operator followed up with Jeff by phone for diabetes. . TOPIC OF CONVERSATION: ??? Reviewed assessment and plan from previous visit with patient. ??? Engaged patient in conversation related to positive behavior change, self- management, goal setting and action planning using motivational interviewing and active listening. ??? Jeff said that he is working with a home health social sciences lecturer, Jaren, to find new housing and a mental health counselor. Jeff is very interested in speaking with a counselor. He says he needsto vent about his divorce and relationships with his children. ??? Jeff said he is testing his blood glucose 3 times daily, but he is not recording the results. HE said today his BG= 161. . Encouraged Jeff to get a notebook and keep track of his blood glucose results to discuss with Dr. Batres. ??? Jeff says he is filling his pill box weekly, and using a medication list as a guide. ??? He reports he is taking Novolog 18 units 3 times daily before meals, and Lantus 55 unites at bedtime. He didn't remember the names of his insulin, but he remembered long acting and short acting. ??? Jeff was quite forgetful of the names of his medications this morning, but he said that he is remembering to take his insulin daily. ??? We reviewed Jeff's upcoming medical appointments and Jeff wrote these on his calendar. Prioritized Patient Identified Goals: .??Jeff will??Take Medications and insulin as directed ??on a regular basis every day.?Achievement towards goals:In Progress.? 2.??Patient will test blood glucose 3 times daily before meals and write down the results in a log. ??Achievement towards goal: In Progress Plan: CM will follow-up in three months EDMUNDO DE LA O RN 12/11/2022 9:55 documented in this encounter Plan of Treatment Not on file documented as of this encounter Visit Diagnoses Not on filedocumented in this encounter Care Teams Salesperson Sheet Music Relationship Specialty Start Date End Date Jason Batres MD [address] [place] [address] PCP - General 07/27/11 12/31/23 Edmundo De La O, fluoroscope operator 04/18/22 08/13/23 documented as of this encounter
--- OUTSIDE RECORDS SUMMARY | 2024-02-28 16:40 | XMS_ITS | Encounter Summary ---
Author Organization [facility] Address [address] [place] [address] Care Team Providers Care Recycling Coordinator Name Role Phone Jason Batres MD Primary Care Provi margarita Edmundo De La O RN Unavailable Unavailable Encounter Details Date Type Department Care Team (Late st Contact Info) Description 12/27/2022 Patient Outreach Jason Batres [facility], [facility] [address] [employer], [place] [address] Edmundo De La O RN Social History Tobacco Use Types Packs/Day Years [...] * Edmundo De La O RN - 12/27/2022 1125 EDT [facility] Equipment Hire Manager Care Coordination ?? mobile battery technician spoke with Jeff's son, Js, on 12/27/22 in order to coordinate care. ?? Js called this RN with questions about Jeff's medication and the cost of some of the medications that he has seen on Jeff's insurance bills. ?? Js would like to discuss this with Dr. Batres. ?? Advised Js that Jeff has an office visit with Dr. Batres on 01/09/23 at 0930, and he could attend that appointment to discuss medication with Dr. Batres. ?? Js agreed with this plan. PLAN: Follow up as needed EDMUNDO DE LA O RN 12/27/2022 11:28 documented in this encounter Plan of Treatment Not on file documented as of this encounter Visit Diagnoses Not on filedocumented in this encounter Care Teams Recycling Coordinator Relationship Specialty Start Date End Date Jason Batres MD [address] [place] [id number] PCP - General 07/27/11 12/31/23 Edmundo De La O RN Care Manager 04/18/22 08/13/23 documented as of this encounter
--- OUTSIDE RECORDS SUMMARY | 2024-02-28 16:40 | XMS_ITS | Encounter Summary ---
Author Organization [facility] Address [address] [place] [address] Care Team Providers Care Cafe Operator Name Role Phone Jason Batres MD Primary Care Provi margarita Alexus De La O RN Unavailable Unavailable Reason for Visit * Reason Comments Follow-up Encounter Details Date Type Department Care Team (Latest Contact Info) Description 03/20/2023 10:30 EST Office Visit [facility] Physical Medicine & Rehabilitation - [place] [address] Arianne Gonzalez MD [address] [place] [address] Below-knee amputation of right lower extremity (HCC-CMS) [...] Progress Notes * Arianne Gonzalez MD - 03/20/2023 1030 EST Jeff Scott Date of Visit: 03/20/2023 Chief Complaint Patient presents with Follow-up HPI: Jeff returns for follow-up of right transtibial amputation. He was last seen in this clinic on 12/28/2022. He canceled his 03/08/2023 appointment due to transportation issues, and was an hour late today due to transportation issues as well. His electron beam photo mask technician had to leave due to the delay. Jeff is unaccompanied today. His residual limb wound has been healing gradually and he was discharged from home health earlier this week. He has been wearing the prosthesis minimally, usually just for once weekly visits to the grocery store, where he uses a mobility cart. He denies any pain in the residual limb. His primary request today is for a more modern prosthesis with more movement. Details of his discomfort, needs, and requests are somewhat limited by cognition and focus, but he does note some pain in the popliteal fossa with prolonged knee flexion and very limited ankle mobility. He would like to be able to walk outdoors, hike on wooded trails, and return to cycling. He has seen athletes on television with a dvanced prostheses and wonders how his could be more modern. 12pt review of systems was completed and [...] rhythm and depth Skin: R TTA with skin closed over wound near prominent distal anterior tibia. Incision well healed.Remainder of skin intact, clear. Psych: Appropriate affect MSK/Neuro: R TTA nontender. Circumference 38.3cm over widest distal margin, 38.5cm over patellar tendon. Limited sensation over R distal residual limb. Short-term memory loss. Confusion noted. Seatedin manual WC. Gait not assessed. ASSESSMENT/PLAN: Jeff is a 62-year-old male s/p R TTA 12/29/2020 for chronic osteomyelitis in the setting of type 2diabetes mellitus who distal residual limb wound has slowly healed, now with skin intact but not fully resolved. Recommend he continue to wear the prosthesis only as necessary and closely monitor hisskin for any changes. Also recommend replacement socket with transition from suction suspension to a pin lock suspension to decrease bulk of the prosthesis and eliminate the need for a suspension sleeve, which may help with clothing management and mitigate some of the discomfort with prolonged or deep knee flexion. Prescription provided for replacement R TTA socket, easy off lever lock, ultralightweight components, locking liners, single- and multi-ply socks, prosthetic supplies. After discussion with his electron beam photo mask technician, Elbert Macias of [employer], will continue with his current K2 Sensation foot as this likely provides the most multi-axial motion and torsion of the K2 options. If his gait and functional status progress quickly with a replacement socket, could consider updating to a K3 foot at a later time. At this point, he is a motivated K2 ambulator with possible K3 potential if his rehab continues to progress. A new socket is medically required to optimize fit, comfort, mobility, and skin health/protection inthis amputee. Upon full resolution of his skin wound, the prosthesis will be required for indefinite daily use to promote mobility independence and safety. Soundtracker will contact Jeff with appointments for casting, fitting, and delivery. Will plan to follow-up in this clinic in 8 weeks, or sooner as needed. Patient indicated understanding and agreement with plan. All questions answered. I spent a total of 50 minutes in the care of this patient [...] extremity, subsequent encounter documented in this encounter Orders Equipment Count Last Ordered Date First Orde red Date GENERIC DME ORDER 1 03/20/2023 documented in this encounter Care Teams Cafe Operator Relationship Specialty Start Date End Date Jason Batres MD [address] [place] [id number] PCP - General 07/27/11 12/31/23 Alexus De La O, unemployment benefits claims taker 04/18/22 08/13/23 documented as of this encounter
--- OUTSIDE RECORDS SUMMARY | 2024-02-28 16:40 | XMS_ITS | Encounter Summary ---
Author Organization [facility] Address [address] [place] [address] Care Team Providers Care Retail Wireless Associate Name Role Phone Jason Batres MD Primary Care Provi margarita Alexus De La O RN [facility] Internal Medicine, Primary Care Provi margarita Reason for Visit * Reason Onset Date Comments Wound Care 01/30/2023 Encounter Details Date Type Department Care Team (Late st Contact Info) Description 01/30/2023 Telephone Terry Batres MD [address] [address] Jason Batres MD [address] [place] [phone] Wound Care (/) Social History Tobacco Use Types Packs/Day Years [...] * Telephone Encounter - Tangela Garrett - 01/30/2023 0833 EST Glenys from [facility] LM stating pt's wound on his right amputation site is improving so she is reducing his visits to 2x/week. TANGELA SALVADOR MA documented in this encounter Plan of Treatment Not on file documented as of this encounter Visit Diagnoses Not on filedocumented in this encounter Care Teams Retail Wireless Associate Relationship Specialty Start Date End Date Jason Batres MD [address] [place] [address] PCP - General 07/27/11 12/31/23 [facility], [address] [place] [address] PCP - General 01/01/24 Alexus De La O, heating element repairer 04/18/22 08/13/23 documented as of this encounter
--- OUTSIDE RECORDS SUMMARY | 2024-02-28 16:40 | XMS_ITS | Encounter Summary ---
Author Organization [facility] Address [address] [place] [address] Care Team Providers Care Apparel Pattern Maker Name Role Phone Jason Batres MD Primary Care Provi margarita Alexus De La O RN [facility] Internal Medicine, Primary Care Provi margarita Reason for Visit * Reason Onset Date Comments Wound Care 10/20/2022 Encounter Details Date Type Department Care Team (Late st Contact Info) Description 10/20/2022 Telephone [facility], [address] [facility] [address] [place] [address] Constance Mix RN Wound Care Social History Tobacco Use Types [...] Telephone Encounter - Constance Mix RN - 10/20/2022 1116 EDT Call from Glenys, nurse with [facility]. She is requesting order for their wound nurse to see him and pare some calluses around his BKA stump. She states the wound is improving but he has some calluses around it. Per Carmelita Hogue APRN, I gave verbal OK for paring of the calluses by wound care nurse. She also noted she did a re certification for [facility] and they will continue wound care three times per week. CONSTANCE MIX RN documented in this encounter Plan of Treatment Not on file documented as of this encounter Visit Diagnoses Not on filedocumented in this encounter Care Teams Apparel Pattern Maker Relationship Specialty Start Date End Date Jason Batres MD [address] [place] [address] PCP - General 07/27/11 12/31/23 [facility], [address] [place] [address] PCP - General 01/01/24 Alexus De La O, licensed electrician 04/18/22 08/13/23 documented as of this encounter
--- OUTSIDE RECORDS SUMMARY | 2024-02-28 16:40 | XMS_ITS | Encounter Summary ---
Author Organization [facility] Address [address] [place] [address] Care Team Providers Care Returned Telephone Equipment Appraiser Name Role Phone Jason Batres MD Primary Care Provi margarita Edmundo De La O RN Unavailable Unavailable Encounter Details Date Type Department Care Team (Late st Contact Info) Description 10/02/2022 Patient Outreach Jason Batres MD, PC [address], [place] [address] Edmundo De La O RN Social History [...] encounter Progress Notes * Edmundo De La O, JARVIS - 10/02/2022 1429 EDT [facility] Care Management Follow Up couturiere followed up with Jeff by phone for medication management . TOPIC OF CONVERSATION: ??? Reviewed assessment and plan from previous visit with patient. ??? Engaged patient in conversation related to positive behavior change, self- management, goal setting and action planning using motivational interviewing and active listening. ??? Jeff is aware of his appointment with Arianne Gonzalez in physical medicine tomorrow, 10/03, and with Dr. Batres on 10/05. He has set up transportation to these visits with [facility]. ??? Jeff said that his stump is really bothering him. He said it is painful, and his leg is too small and rubs around in the prosthesis. He is eager to discuss a new prosthesis with Dr. Gonzalez. He would like a more modern prosthesis so he can walk well. ??? Jeff said that the wound on his heel is healing well and is the size of a dime. [facility] to provide wound care for his stump. ??? Jeff said he is testing his blood glucose 3 times daily and he is taking his medications as directed. He declined offer of using a CGM. He said he discussed this with Dr. Batres's PA ( Livan) andhe does not want to switch to a CGM at this time. ??? Jeff said that his blood glucose was 160 this morning and 174 at lunch time. ??? Jeff said he is filling his pill box weekly and taking his pills as directed. He said sometimes he procrastinates filling his pill box because he gets lazy. We discussed the advantage of keepingup his medication routine. ??? Jeff said that he walks down to breakfast each day and he walks outside in good weather. ??? He has a social work nurse helping him with housing and with finding a psychologist. He said he hascalled several psychologists and has not heard back from any. ??? Jeff said that his divorce is final and he feels very relieved, but he is eager to talk with apsychologist. Prioritized Patient Identified Goals: 1.??Jeff will??Take Medications as directed daily??on a regular basis every day.?Achievement towards goals:In Progress.? 2.??Patient will test blood glucose 3 times daily before meals.?Achievement towards goal: In Progress Plan: CM will follow-up In 2-3 months EDMUNDO DE LA O RN 10/02/2022 14:42 documented in this encounter Plan of Treatment Not on file documented as of this encounter Visit Diagnoses Not on filedocumented in this encounter Care Teams Returned Telephone Equipment Appraiser Relationship Specialty Start Date End Date Jason Batres MD [address] [place] [id number] PCP - General 07/27/11 12/31/23 Edmundo De La O RN Care Manager 04/18/22 08/13/23 documented as of this encounter
--- OUTSIDE RECORDS SUMMARY | 2024-02-28 16:40 | XMS_ITS | Encounter Summary ---
Author Organization [facility] Address [address] [place] [address] Care Team Providers Care Coat Cutter Name Role Phone Jason Batres MD Primary Care Provi margarita Alexus De La O RN Unavailable Unavailable Encounter Details Date Type Department Care Team (Latest Contact Info) Description 02/14/2023 10:21 EST - 02/14/2023 23:59 EST Hospital Encounter [address] [place], [place] [id number] Status post left hip replacement Discharge Disposition: Home or Self Care Social History Tobacco Use Types Packs/Day [...] Chelsea Kwon RN documented in this encounter Medications at Time of Discharge acetaminophen (TYLENOL) 500 mg tablet Take 2 Tablets by mouth every 6 hours. 240 Tablet 04/17/2022 bisacodyL (DULCOLAX) [address] 1 Suppository rectally as needed for Constipation. 30 Each 04/17/2022 blood glucose (FREESTYLE TEST) test strips 1 Strip by misc (non-drug; combo route) route 3 times daily. 100 Each 04/17/2022 blood glucose meter (FREESTYLE FREEDOM LITE) Test FS BID. 1 Each 0 11/11/2013 blood glucose test strips 1 Strip by misc (non-drug; combo route) route 4 times daily. One touch verio flex 100 Each 2 04/17/2022 cholecalciferol, Vitamin D3, 50 mcg (2,000 unit) tablet Take 1 Tablet by mouth at bedtime. 30 Tablet 04/17/2022 clotrimazole (LOTRIMIN) 1 % cream Apply to affected area BID until resolved 45 g 1 07/12/2022 FREESTYLE FREEDOM LITE Use as directed as needed (glucose monitoring). 1 Each 11/14/2017 gabapentin (NEURONTIN) 300 mg capsule Take 1 Capsule by mouth 3 times daily. 270 Capsule 3 10/30/2022 lancets Test BID 100 Each 1 10/30/2022 magnesium oxide (MAG-OX) 400 mg (241.3 mg magnesium) tablet Take 1 Tablet by mouth daily. 30 Tablet 04/17/2022 metFORMIN (GLUCOPHAGE) 500 mg tablet TAKE TWO TABLETS BY MOUTH TWICE DAILY WITH BREAKFAST AND DINNER 120 Tablet 2 01/09/2023 methocarbamoL (ROBAXIN) 500 mg tablet Take 1 Tablet by mouth every 8 hours as needed for Pain or Muscle Spasms. 90 Tablet 3 10/30/2022 oxyCODONE (ROXICODONE) 5 mg immediate release tablet Take 1 Tablet by mouth 2 times daily as needed for Pain. Daily Max: 10 mg 10 Tablet 06/02/2022 TAMSulosin (FLOMAX) 0.4 mg capsule Take 1 Capsule by mouth daily. 30 Capsule 2 07/14/2022 apixaban (ELIQUIS) 5 mg tablet Take 1 Tablet by mouth 2 times daily. 180 Tablet 3 10/30/2022 4 atorvastatin (LIPITOR) 20 mg tablet Take 1 Tablet by mouth daily. 90 Tablet 3 10/30/2022 4 insulin aspart U-100 (NOVOLOG FLEXPEN) 100 unit/mL (3 mL) injectable pen Inject 18 Units into the skin 3 times daily with meals. 15 mL 07/17/2022 4 insulin glargine (LANTUS SOLOSTAR/SEMGLEE) 100 unit/mL (3 mL) injection pen Inject 55 Units into the skin at bedtime. 15 mL 11 10/30/2022 4 levothyroxine (SYNTHROID) 112 mcg tablet Take 1 Tablet by mouth daily. 90 Tablet 3 10/30/2022 4 losartan (COZAAR) 25 mg tablet Take 1 Tablet by mouth daily. 90 Tablet 3 10/30/2022 4 pantoprazole (PROTONIX) 40 mg tablet Take 1 Tablet by mouth daily before breakfast. 90 Tablet 3 10/30/2022 4 sertraline (ZOLOFT) 50 mg tablet Take 1 Tablet by mouth daily. 90 Tablet 3 10/30/2022 4 documented as of this encounter Discharge Disposition Disposition Code Departure Means Destination Home or Self Care documented in this encounter Plan of Treatment Not on file documented as of this encounter Procedures Procedure Name Priority Date/Time Associated Diagnosis Comments XR HIP RIGHT 1 VIEW Routine 02/14/2023 1 0:43 EST Status post left hip replacement XR HIP LEFT 2-3 VIEWS, OPTIONAL PELVIS Routine 02/14/2023 10:43 EST Status post left hip replacement documented in this encounter Results * XR HIP RIGHT 1 VIEW (02/14/2023 10:43 EST) Anatomical Region Laterality Modality Lower Extremities Right Computed Radio graphy 02/14/2023 16:5 0 EST Impressions 02/14/2023 16:50 EST FINDINGS / IMPRESSION: * ??Left hip arthroplasty without periprosthetic fracture or lucency. * ??Severe right hip degenerative changes. * ??Osteopenia. * ??XR HIP RIGHT 1 VIEW 1 views ?? [id number] Narrative 02/14/2023 16:50 EST EXAM/TECHNIQUE: 02/14/2023 10:30 [...] XR HIP RIGHT 1 VIEW 1 views [id number] Sachin Burroughs MD MSc [facility] IMG DIAGNOSTIC [...] 2-3 VIEWS, OPTIONAL PELVIS 2 views ?? [id number] Narrative 02/14/2023 16:50 EST EXAM/TECHNIQUE: 02/14/2023 10:30 [...] LEFT 2-3 VIEWS, OPTIONAL PELVIS 2 views [id number] us Sachin Burroughs MD MSc [facility] IMG DIAGNOSTIC I MAGING ORDERABLES Final Result documented in this encounter Visit Diagnoses Diagnosis Status post left hip replacement Hip joint replacement by other means documented in this encounter Care Teams Coat Cutter Relationship Specialty Start Date End Date Jason Batres MD [address] [place] [id number] PCP - General 07/27/11 12/31/23 Alexus De La O, oil analyst 04/18/22 08/13/23 documented as of this encounter
--- OUTSIDE RECORDS SUMMARY | 2024-02-28 16:40 | XMS_ITS | Encounter Summary ---
Author Organization [facility] Address [address] [place] [address] Care Team Providers Care Construction Engineer Name Role Phone Jason Batres MD Primary Care Provi margarita Alexus De La O RN [facility] Internal Medicine, Primary Care Provi margarita Reason for Visit * Reason Onset Date Comments DME 12/04/2022 Encounter Details Date Type Department Care Team (Late st Contact Info) Description 12/04/2022 Telephone Terry Batres MD [address] [address] Jason Batres MD [address] [place] [phone] DME Social History Tobacco Use Types [...] place to sleep or slept in a nursing home (including now)? No 05/02/2022 Interpersonal Safety [...] Telephone Encounter - Jason Batres MD - 12/05/2022 1610 EDT Script done, although I think they often require a visit with some specific wording and documentation but we can see if the script starts the process Jason Batres MD * Telephone Encounter - Connie Bobby MA - 12/05/2022 1259 EDT Glenys from [facility] was calling to see if it is possible to write a script for a wheel chairand leg rests. Pt is having difficulty healing right stump. The prosthetics is rubbing and is causing discomfort. Pts first choice would be at the medical store, then [facility]. Connie Bobby MA * Telephone Encounter - Connie Bobby MA - 12/04/2022 0820 EDT Pt called and LM wondering if he could get a prescription for a wheelchair. Connie Bobby MA documented in this encounter Plan of Treatment Not on file documented as of this encounter Visit Diagnoses Not on filedocumented in this encounter Care Teams Construction Engineer Relationship Specialty Start Date End Date Jason Batres MD [address] [place] [address] PCP - General 07/27/11 12/31/23 [facility] Internal Medicine, [place] [address] [place] [address] PCP - General 01/01/24 Alexus De La O, warehouse delivery driver 04/18/22 08/13/23 documented as of this encounter
--- OUTSIDE RECORDS SUMMARY | 2024-02-28 16:41 | XMS_ITS | Encounter Summary ---
Author Organization [facility] Address [address] [place] [address] Care Team Providers Care Windshield Technician Name Role Phone Jason Batres MD Primary Care Provi margarita Alexus De La O RN [facility] Internal Medicine, Primary Care Provi margarita Reason for Visit * Reason Onset Date Comments Medications Refill 07/17/2022 Encounter Details Date Type Department Care Team (Late st Contact Info) Description 07/17/2022 Refill Terry Batres MD [address] [address] Jason Batres MD [address] [place] [phone] Medications Refill Social History Tobacco Use [...] times daily with meals. 15 mL 07/17/2022 03/19/2023 documented in this encounter Miscellaneous Notes * Telephone Encounter - Khanh Polanco - 07/17/2022 1106 EDT Refill. Pharmacy says they do not have script sent on 07/11/22. Khanh Polanco MA documented in this encounter Plan of Treatment Not on file documented as of this encounter Visit Diagnoses Not on filedocumented in this encounter Discontinued Medications Medication Sig Discontinue Reason Start Date End Da te insulin aspart U-100 (NOVOLOG FLEXPEN) 100 unit/mL (3 mL) injectable pen Inject 18 Units into the skin 3 times daily with meals. Reorder 07/11/2022 07/17/2022 documented as of this encounter Care Teams Windshield Technician Relationship Specialty Start Date End Date Jason Batres MD [address] [place] [address] PCP - General 07/27/11 12/31/23 [facility] Internal Medicine, [address] [place] [address] PCP - General 01/01/24 Alexus De La O RN Care Manager 04/18/22 08/13/23 documented as of this encounter
--- OUTSIDE RECORDS SUMMARY | 2024-02-28 16:41 | XMS_ITS | Encounter Summary ---
Author Organization [facility] Address [address] [place] [address] Care Team Providers Care Oil Heaterman Name Role Phone Jason Batres MD Primary Care Provi margarita Alexus De La O RN Unavailable Unavailable Reason for Visit * Reason Comments Follow-up Leg Pain Left thigh pain Encounter Details Date Type Department Care Team (Late st Contact Info) Description 07/06/2022 14:30 EDT Office Visit Terry Batres MD [facility] [address] [place] [address] Jason Batres MD [address] [place] [phone] Type 2 diabetes mellitus without complication, with long-term current use of insulin ([facility]) (Primary Dx); Impacted cerumen of both ears; Tinea corporis; Thigh pain, musculoskeletal, left Social History Tobacco Use Types Packs/Day Years [...] place to sleep or slept in a [place] facility (including now)? No 05/02/2022 Interpersonal Safety Answer [...] Sign Reading Time Taken Comments Blood Pressure 124/70 07/06/2022 1413 EDT Pulse 115 07/06/2022 1413 EDT Temperature 36.9 ??C (98.5 ??F) 07/06/2022 1413 EDT Respiratory Rate - - Oxygen Saturation 95% 07/06/2022 1413 EDT Inhaled Oxygen Concentration - - Weight 132.9 kg (293 lb) 07/06/2022 1413 EDT Height - - Body Mass Index 37.62 05/14/2022 1530 EDT documented in this encounter Functional Status * Are you deaf or do you have serious difficulty hearing? Answer Date of Assessment Author No 11/20/2021 20:00 EDT KoreyChelsea kellogg RN * Are you blind or do [...] * Patient Instructions* Jason Batres MD - 07/06/2022 14:30 EDT Add Methocarbamol one 500 mg pill three times per day for the left quad pain. This is a muscle relaxer. Add heat to the area as well. Clotrimazole to the right knee area documented in this encounter Progress Notes * Constance Mix RN - 07/06/2022 1430 EDT Bilateral ear flush performed, 98% cerumen removed, tympanic membranes visualized. CONSTANCE MIX RN * Jason Batres MD - 07/06/2022 1430 EDT Subjective: Patient ID: Jeff Scott is an 61 y.o. male. Chief Complaint Patient presents with ??? Follow-up ??? Leg Pain Left thigh pain HPI Jeff is here today for follow up. Overall, he feels that he is doing well. He finished PT last week and loved it. He feels that the PT helped his mobility. He is using his walker and feels that this also helps him with his mobility and independence. He has not fallen since he has been dischargedfrom the hospital. He continues to do exercises three times a day on his own at home. He has noticed a new stabbing pain in his left anterior and medial thigh. He says that the muscles in this area also feel tight. The pain occurs usually after he has rested for a while. It often occurs first thing in the morning when he is getting out of bed. He has used an electric massager on his thigh and this has helped. He has an ulcer on the heel of his left foot. He is being seen by podiatry and home health is visiting him on Mondays, Wednesdays, and Fridays to clean and re- wrap the ulcer. He has been elevating his foot at home. He also has red spots around his right knee that he thinks is from his prosthetic. He would also like us to take a look at some bug bites on his inner right arm. He has been covering it with a large bandage to prevent himself from scratching the area. They itch and he has been scratching them. [facility] reports that he cannot hear as well with his right ear. Jeff has been measuring his blood sugars 3 times a day and reports that they have ranged from 98-215. He is taking his long acting insulin at night and short acting insulin with every meal. He uses a weekly pill box to help him take his other medications. He has a list of medications at home and fills the pill boxes himself with the help of this list. He feels that the pill box helps him remember to take his pills. Jeff says that his mood has been [...] on finding permanent housing through [facility]. Social Current Outpatient Medications on File Prior [...] mouth at bedtime. 30 Tablet 0 ??? FREESTYLE FREEDOM LITE Use as directed [...] by mouth daily. 30 Tablet 2 ??? magnesium oxide (MAG-OX) 400 mg (241.3 mg magnesium) tablet Take 1 Tablet by mouth daily. 30 Tablet 0 ??? metFORMIN (GLUCOPHAGE) 500 mg tablet Take 2 Tablets by mouth 2 times daily with breakfast and dinner. 120 Tablet 2 ??? methocarbamoL (ROBAXIN) 500 mg tablet Take 1 Tablet by mouth every 8 hours as needed for Pain or Muscle Spasms. 90 Tablet 0 ??? oxyCODONE (ROXICODONE) 5 mg immediate release [...] Allergies ROS - See HPI Objective: BP 124/70 Pulse (!) 115 Temp 36.9 ??C (98.5 ??F) (Temporal) Wt (!) 132.9 kg (293 lb) SpO2 95% BMI 37.62 kg/m?? Physical Exam Constitutional: General: He is [...] Mood and Affect: Mood and affect normal. Skin: Red, annular macules with scales observed around right knee and proximal lower leg in distribution of prosthetic; Scabs in various stages of healing observed on the medial aspect of the upper right arm Assessment: Jeff is a 61 year old [...] methocarbamol 500 mg three times a day. The red edwards on the knee are most consistent with tinea corporis. We discussedmeasures to keep the area dry and advised him to apply clotrimazole 1% cream to the area. The scabsobserved on the upper right arm are healing and he was advised to continue covering the area to prevent him from scatching it. Ear lavage was performed to remove cerumen. Plan: Jeff was seen today for follow-up and leg pain. Diagnoses and all orders for this visit: Type 2 diabetes mellitus without complication, with long-term current use of insulin ([facility]) ([facility]) - continue novolog 18 unites three times a day with meals - Continue lantus 55 units once at bedtime - Continue metformin 500 mg 2 tablets with breakfast and dinner - A1C at next visit- he had to leave as his bus was ready today Thigh pain, musculoskeletal, left - Continue using massager as needed for pain - Apply heat as needed for pain - Start taking methocarbamol 500 mg three times a day Impacted cerumen of both ears - Ear lavage completed at this visit Tinea Corporis - Keep the affected area as dry as possible - Apply clotrimazole 1% cream to the affected area as needed Jason Batres MD documented in this encounter Plan of Treatment Not on file documented as of this encounter Visit Diagnoses Diagnosis Type 2 diabetes mellitus without complication, with long-term current use of insulin ([facility])- Primary Impacted cerumen of both ears Impacted cerumen Tinea corporis Dermatophytosis of the body Thigh pain, musculoskeletal, left documented in this encounter Care Teams Oil Heaterman Relationship Specialty Start Date End Date Jason Batres MD [address] [place] [id number] PCP - General 07/27/11 12/31/23 Alexus De La O RN Care Manager 04/18/22 08/13/23 documented as of this encounter
--- OUTSIDE RECORDS SUMMARY | 2024-02-28 16:41 | XMS_ITS | Encounter Summary ---
Author Organization [facility] Address [address] [place] [address] Care Team Providers Care Vehicle Damage Appraiser Name Role Phone Jason Batres MD Primary Care Provi margarita Alexus De La O RN Unavailable Unavailable Encounter Details Date Type Department Care Team (Late st Contact Info) Description 07/24/2022 Patient Outreach Jason Batres MD, PC [address] [place], [place] [id number] Alexus De La O RN Social History Tobacco [...] documented in this encounter Progress Notes * Alexus De La O RN - 07/24/2022 0938 EDT ERROR documented in this encounter Plan of Treatment Not on file documented as of this encounter Visit Diagnoses Not on filedocumented in this encounter Care Teams Vehicle Damage Appraiser Relationship Specialty Start Date End Date Jason Batres MD [address] [place] [address] PCP - General 07/27/11 12/31/23 Alexus De La O RN Care Manager 04/18/22 08/13/23 documented as of this encounter
--- OUTSIDE RECORDS SUMMARY | 2024-02-28 16:41 | XMS_ITS | Encounter Summary ---
Author Organization [facility] Address [address] [place] [address] Care Team Providers Care Radiologic Technician Name Role Phone Jason Batres MD Primary Care Provi margarita Alexus De La O RN [facility] Internal Medicine, Primary Care Provi margarita Reason for Visit * Reason Onset Date Comments Social Work 08/15/2022 Encounter Details Date Type Department Care Team (Late st Contact Info) Description 08/15/2022 Telephone Terry Batres MD [address] [address] Jason Batres MD [address] [place] [phone] Social Work Social History Tobacco Use Types Packs/Day Years [...] * Telephone Encounter - Tangela Garrett - 08/15/2022 1050 EDT Patrica from [facility] stating she saw pt yesterday and he requested assistance w/finding a mental health counselor. Patrica placed a referral to medical for pt. TANGELA SALVADOR MA documented in this encounter Plan of Treatment Not on file documented as of this encounter Visit Diagnoses Not on filedocumented in this encounter Care Teams Radiologic Technician Relationship Specialty Start Date End Date Jason Batres MD [address] [place] [address] PCP - General 07/27/11 12/31/23 [facility] Internal Medicine, [address] [place] [address] PCP - General 01/01/24 Alexus De La O, shirt ironer supervisor 04/18/22 08/13/23 documented as of this encounter
--- OUTSIDE RECORDS SUMMARY | 2024-02-28 16:41 | XMS_ITS | Encounter Summary ---
Author Organization [facility] Address [address] [place] [address] Care Team Providers Care Stone Driller Name Role Phone Jason Batres MD Primary Care Provi margarita Alexus De La O RN [facility] Internal Medicine, Primary Care Provi margarita Reason for Visit * Reason Onset Date Comments Home Health 06/19/2022 Encounter Details Date Type Department Care Team (Late st Contact Info) Description 06/19/2022 Telephone Terry Batres MD [address] [address] Jason Batres MD [address] [place] [phone] Home Health Social History Tobacco Use Types [...] place to sleep or slept in a [facility] (including now)? No 05/02/2022 Interpersonal Safety Answer [...] * Telephone Encounter - Khanh Polanco - 06/19/2022 1517 EDT [facility] called saying that they are recertifying pt's HH orders to continue wound care 3 times a week. Khanh Polanco MA documented in this encounter Plan of Treatment Not on file documented as of this encounter Visit Diagnoses Not on filedocumented in this encounter Care Teams Stone Driller Relationship Specialty Start Date End Date Jason Batres MD [address] [place] [address] PCP - General 07/27/11 12/31/23 [facility] Internal Medicine, [address] [place] [address] PCP - General 01/01/24 Alexus De La O, roaster operator 04/18/22 08/13/23 documented as of this encounter
--- OUTSIDE RECORDS SUMMARY | 2024-02-28 16:41 | XMS_ITS | Encounter Summary ---
Author Organization [facility] Address [address] [place] [address] Care Team Providers Care Regional Hr Manager Name Role Phone Jason Batres MD Primary Care Provi margarita Alexus De La O RN [facility] Internal Medicine, Primary Care Provi margarita Reason for Visit * Reason Onset Date Comments Medications Refill 06/14/2022 Encounter Details Date Type Department Care Team (Late st Contact Info) Description 06/14/2022 Refill Terry Batres MD [address] [address] Jason Batres MD [address] [place] [phone] Medications Refill Social History Tobacco Use [...] the skin at bedtime. 15 mL 11 06/14/2022 10/30/2022 documented in this encounter Miscellaneous Notes * Telephone Encounter - Khanh Polanco - 06/14/2022 1243 EDT Refill. documented in this encounter Plan of Treatment Not on file documented as of this encounter Visit Diagnoses Not on filedocumented in this encounter Discontinued Medications Medication Sig Discontinue Reason Start Date End Da te insulin glargine (LANTUS SOLOSTAR/SEMGLEE) 100 unit/mL (3 mL) injection pen Inject 55 Units into the skin at bedtime. Reorder 06/14/2022 06/14/2022 documented as of this encounter Care Teams Regional Hr Manager Relationship Specialty Start Date End Date Jason Batres MD [address] [place] [address] PCP - General 07/27/11 12/31/23 [facility] Internal Medicine, [address] [place] [address] PCP - General 01/01/24 Alexus De La O, technical solutions engineer 04/18/22 08/13/23 documented as of this encounter
--- OUTSIDE RECORDS SUMMARY | 2024-02-28 16:41 | XMS_ITS | Encounter Summary ---
Author Organization [facility] Address [address] [place] [address] Care Team Providers Care Bacteriology Technician Name Role Phone Jason Batres MD Primary Care Provi margarita Alexus De La O RN [facility] Internal Medicine, Primary Care Provi margartia Reason for Visit * Reason Onset Date Comments Medications Refill 06/13/2022 Encounter Details Date Type Department Care Team (Late st Contact Info) Description 06/13/2022 Refill Terry Batres MD [address] [address] Jason Batres MD [address] [place] [phone] Medications Refill Social History Tobacco Use [...] Sexual Orientation Straight 06/12/2023 11 :45 EDT COVID-19 Exposure Response Date Recorded In the last 10 days, have yo u been in contact with someone who was confirmed or suspected to have Coronavirus/COVID-19? No / Unsure 05/14/2022 15:31 EDT documented as of this encounter Functional [...] Telephone Encounter - Jason Batres MD - 06/13/2022 1629 EDT Omaira, Can you call him. He was on oxycodone for hip pain and had his hip replaced during his long hospital stay. When he saw Livan Crawford DNP in follow up, Livan's note says he was not needing any oxycodone at that time. Then it was sent in on May 11 for ten pills but the plan was not extermination inspector opioids. I will need to know more about his pain and he may need a visit to discuss and consider other options Jason Batres MD * Telephone Encounter - Keyla Rhodes - 06/13/2022 1332 EDT Pt is wondering if he can get more than 10 pills at a time. Difficult to get to pharmacy. documented in this encounter Plan of Treatment Not on file documented as of this encounter Visit Diagnoses Not on filedocumented in this encounter Care Teams Bacteriology Technician Relationship Specialty Start Date End Date Jason Batres MD [address] [place] [address] PCP - General 07/27/11 12/31/23 [facility] Internal Medicine, [place] [address] [place] [address] PCP - General 01/01/24 Alexus De La O, extrusion machine operator 04/18/22 08/13/23 documented as of this encounter
--- OUTSIDE RECORDS SUMMARY | 2024-02-28 16:41 | XMS_ITS | Encounter Summary ---
Author Organization [facility] Address [address] [place] [address] Care Team Providers Care Histopath Tech Name Role Phone Jason Batres MD Primary Care Provi margarita Alexus De La O RN Unavailable Unavailable Reason for Visit * Reason Onset Date Comments Update 06/08/2022 Encounter Details Date Type Department Care Team (Late st Contact Info) Description 06/08/2022 Telephone [facility] Physical Medicine & Rehabilitation - [facility] [address] [place], [place] [id number] Arianne Gonzalez MD [address] [place] [phone] Update Social History Tobacco Use Types Packs/Day [...] of Assessment Author Yes 11/20/2021 20:00 EDT Korey, Matthe w, RN * Because of a physical, mental, [...] Miscellaneous Notes * Telephone Encounter - Natividad Ricardo MA - 06/08/2022 0920 EDT I called and left Jeff a message to call me. Natividad documented in this encounter Plan of Treatment Not on file documented as of this encounter Visit Diagnoses Not on filedocumented in this encounter Care Teams Histopath Tech Relationship Specialty Start Date End Date Jason Batres MD [address] [place] [address] PCP - General 07/27/11 12/31/23 Alexus De La O RN Care Manager 04/18/22 08/13/23 documented as of this encounter
--- OUTSIDE RECORDS SUMMARY | 2024-02-28 16:41 | XMS_ITS | Encounter Summary ---
Author Organization [facility] Address [address] [place] [address] Care Team Providers Care Automotive Exhaust Emissions Technician Name Role Phone Jason Batres MD Primary Care Provi margarita Alexus De La O RN Unavailable Unavailable Reason for Visit * Reason Comments Follow-up Right BKA Encounter Details Date Type Department Care Team (Latest Contact Info) Description 08/22/2022 15:[address] [facility] Physical Medicine & Rehabilitation - [address] [place] [address] Arianne Gonzalez MD [address] [place] [phone] Below-knee amputation of right lower extremity (HCC-CMS) [...] Progress Notes * Arianne Gonzalez MD - 08/22/2022 1500 EDT Jeff Scott Date of Visit: 08/22/2022 Chief Complaint Patient presents with ??? Follow-up Right BKA HPI: Jeff returns for follow-up of right transtibial amputation. He was last seen in this clinic on 09/01/2021. In the interim, he underwent a prolonged hospital course (11/2021-04/2022) initially related to failure to thrive and need for a safe discharge plan as family was unable to care for him at home and he was unable to pay for prolonged hospital/[facility] course. While admitted, he underwent left total hip arthroplasty per Dr. Burroughs in 02/2022, and this seems to have gone well but he does have sharp anterior hip/thigh pain with antigravity hip flexion. He forgot to mention this to Dr. Burroughs at his most recent follow-up visit. He was discharged from [facility] to [facility] in [facility] he is still living. He has completed his divorce and feels that is a significant stress reduction. Regarding the right TTA, he reports a wound over the distal anterior tibia that has been slowly healing over the past few weeks. He continues to receive home health nursing services 3x/week, and theyhave been changing the dressing with no further care. He does note pain at that site with ambulation, but has been doing minimal walking as he has been told to offload a left heel wound, for which heis followed by Dr. Betancourt of podiatry. Otherwise, he has been happy with his prosthesis, currently at a 5-ply fit. He would like replacement 5-ply socks as he only has one at this time. 12pt review of systems was completed and negative except as above. PMH, PSH, SH, FH reviewed with patient and in medical record. Current Outpatient Medications on [...] rhythm and depth Skin: R TTA with small malodorous open wound over prominent distal anterior tibia, clean, no activedrainage but some dark discharge evident on bandage; remainder of residual limb skin intact, clean Psych: Appropriate affect MSK/Neuro: Short-term memory loss. Confusion noted. L post-op shoe in place, not removed for exam. R TTA with some tenderness near distal wound, otherwise nontender. FROM R knee. 5/5 R knee flexion/extension, hip flexion/extension. Dons and doffs prosthesis independently, but was wearing 5-ply sockbeneath gel liner at arrival. Required assistance to adjust suspension sleeve to fit properly. Ambulating with walker with some pelvic asymmetry (R appears lower than L). Reported reduced pain with adjustment of liner/sock. ASSESSMENT/PLAN: Jeff is a 61-year-old male s/p R TTA 12/29/2020 for chronic osteomyelitis in the setting of type 2diabetes mellitus who returns with an open wound over the distal residual limb. Recommend offloading as much as possible to allow for wound healing; minimal ambulation has also been recommended for healing of the left heel wound. Discussed appropriate donning of the prosthesis components: gel linerfollowed by sock(s) followed by socket. Recommend he leave the wound open to air as much as possible. He has ongoing wound care with home health nursing. Will follow-up in this clinic in 4-6 weeks toreassess, sooner if new issues or concerns arise. Home health RN to notify MD with any concerning changes. Prescription provided for additional 5-ply socks to allow for hygiene, rotation. Patient indicated understanding and agreement with plan. [...] Orde red Date GENERIC DME ORDER 1 08/24/2022 documented in this encounter Care Teams Automotive Exhaust Emissions Technician Relationship Specialty Start Date End Date Jason Batres MD [address] [place] [address] PCP - General 07/27/11 12/31/23 Alexus De La O RN Care Manager 04/18/22 08/13/23 documented as of this encounter
--- OUTSIDE RECORDS SUMMARY | 2024-02-28 16:41 | XMS_ITS | Encounter Summary ---
Author Organization [facility] Address [address] [place] [address] Care Team Providers Care Electric Lineman Name Role Phone Jason Batres MD Primary Care Provi margarita Alexus De La O RN Unavailable Unavailable Reason for Visit * Reason Onset Date Comments Skin Ulcer 09/06/2022 Encounter Details Date Type Department Care Team (Late st Contact Info) Description 09/06/2022 Telephone Terry Batres MD [address] [address] Jason Batres MD [address] [place] [phone] Skin Ulcer Social History Tobacco Use Types Packs/Day Years [...] encounter Miscellaneous Notes * Telephone Encounter - Carmelita oHgue APRN - 09/06/2022 1000 EDT Agree with wound care thanks * Telephone Encounter - Mena Gomez - 09/06/2022 0907 EDT Call from Glenys([phone]) from [facility]. Pt has a stage 2 pressure ulcer on his right BKA. Glenys thinks it is due to pressure and friction. Glenys is covering it with a mepilex border 2-3 times per week. Mena Gomez MA documented in this encounter Plan of Treatment Not on file documented as of this encounter Visit Diagnoses Not on filedocumented in this encounter Care Teams Electric Lineman Relationship Specialty Start Date End Date Jason Batres MD [address] [place] [address] PCP - General 07/27/11 12/31/23 Alexus De La O, preventative maintenance technician 04/18/22 08/13/23 documented as of this encounter
--- OUTSIDE RECORDS SUMMARY | 2024-02-28 16:41 | XMS_ITS | Encounter Summary ---
Author Organization [facility] Address [address] [place] [address] Care Team Providers Care Perianesthesia Rn Name Role Phone Jason Batres MD Primary Care Provi margarita Alexus De La O RN Unavailable Unavailable Reason for Visit * Reason Onset Date Comments Medications Refill 06/14/2022 Encounter Details Date Type Department Care Team (Late st Contact Info) Description 06/14/2022 Telephone Terry Batres MD [address] [address] Jason Batres MD [address] [place] [phone] Medications Refill Social History Tobacco Use [...] place to sleep or slept in a chcf (including now)? No 05/02/2022 Interpersonal Safety Answer [...] Date of Assessment Author No 11/20/2021 20:00 EDChelsea Martinez RN * Do you have serious difficulty [...] skin at bedtime. 15 mL 11 06/14/2022 06/14/2022 documented in this encounter Miscellaneous Notes * Telephone Encounter - Keyla Rhodes - 06/14/2022 1005 EDT Pt says he needs Toujeo, is that the insulin glargine (he said it is [address] [facility] documented in this encounter Plan of Treatment Not on file documented as of this encounter Visit Diagnoses Not on filedocumented in this encounter Discontinued Medications Medication Sig Discontinue Reason Start Date End Da te insulin glargine (LANTUS SOLOSTAR/SEMGLEE) 100 unit/mL (3 mL) injection pen Inject 55 Units into the skin at bedtime. Reorder 04/17/2022 06/14/2022 documented as of this encounter Care Teams Perianesthesia Rn Relationship Specialty Start Date End Date Jason Batres MD [address] [place] [address] PCP - General 07/27/11 12/31/23 Alexus De La O, event attendant 04/18/22 08/13/23 documented as of this encounter
--- OUTSIDE RECORDS SUMMARY | 2024-02-28 16:41 | XMS_ITS | Encounter Summary ---
Author Organization [facility] Address [address] [place] [address] Care Team Providers Care National Expansion Recruiter Name Role Phone Jason Batres MD Primary Care Provi margarita Alexus De La O RN Unavailable Unavailable Reason for Visit * Reason Onset Date Comments Hypertension 07/24/2022 Encounter Details Date Type Department Care Team (Late st Contact Info) Description 07/24/2022 Telephone Terry Batres MD So [address] [address] Jason Batres MD [address] [place] [phone] Hypertension Social History Tobacco Use Types Packs/Day Years [...] * Telephone Encounter - Keyla Rhodes - 07/25/2022 0950 EDT LVM for pt to call back as had to call pt back because call failed to transfer from [place]. * Telephone Encounter - Jason Batres MD - 07/24/2022 2020 EDT Jeff's BP's since he was discharged in our system are usually in the 120 range, there is one that is 133. However, he does have diabetes so would benefit from an KACEY-I or ARB. But I would like this to be initiated at a visit to discuss with Jeff. This could be over telehealth. Can we reach out [place] and see if we could set that up and it could be with Livan Horton, or Carmelita Hogue. I would likely use losartan 25-50 mg Jason Batres MD * Telephone Encounter - Tangela Garrett - 07/24/2022 1415 EDT Kala from [facility] LM stating pt's BP has been trending up at his visits. Pt's systolic has been running around 140-150. TANGELA SALVADOR MA documented in this encounter Plan of Treatment Not on file documented as of this encounter Visit Diagnoses Not on filedocumented in this encounter Care Teams National Expansion Recruiter Relationship Specialty Start Date End Date Jason Batres MD [address] [place] [address] PCP - General 07/27/11 12/31/23 Alexus De La O, loading unit operator 04/18/22 08/13/23 documented as of this encounter
--- OUTSIDE RECORDS SUMMARY | 2024-02-28 16:41 | XMS_ITS | Encounter Summary ---
Author Organization [facility] Address [address] [place] [address] Care Team Providers Care Fisher Net Name Role Phone Jason Batres MD Primary Care Provi margarita Alexus De La O RN Unavailable Unavailable Reason for Visit * Reason Comments Follow-up Encounter Details Date Type Department Care Team (Late st Contact Info) Description 07/21/2022 11:15 EDT Office Visit [facility] Foot & Ankle Program - [address] [address] Elie Betancourt DPM [address] [place] [phone] Neuropathic diabetic ulcer of foot (HCC-CMS) [...] No 11/20/2021 20:00 EDChelsea Martinez RN * Are you blind or do [...] documented in this encounter Progress Notes * Elei Betancourt DPM - 07/21/2022 1115 EDT SUBJECTIVE: Jeff Scott returns today for follow-up on his left heel ulcer. OBJECTIVE: Loose eschar is noted within the central portion of the ulcer site. This is part of the subcutaneous tissue layer. There is healthy granulation tissue around the periphery along with epithelialization to follow. There is no probing to bone or undermining. No signs of infection are noted.Following debridement, the ulcer measures 2 x 3 cm in diameter. This represents a marked improvement compared to last month. IMPRESSION: Encounter Diagnosis Name Primary? 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 Procedure note: Sterile instrumentation including a #15 scalpel blade and tissue nipper was used inwhich to debride and remove subcutaneous tissue from the left heel ulcer. This was debrided to healthier tissue. A wet-to-dry gauze bandage was applied. He will continue with wound care and offloading. Plan for follow-up in 1 month. documented in this encounter Plan of Treatment Not on file documented as of this encounter Visit Diagnoses Diagnosis Neuropathic diabetic ulcer of foot (HCC-[facility])- Primary Type II or unspecified type diabetes mellitus with other specified manifestations, not stated as uncontrolled documented in this encounter Care Teams Fisher Net Relationship Specialty Start Date End Date Jason Batres MD [address] [place] [id number] PCP - General 07/27/11 12/31/23 Alexus De La O RN Care Manager 04/18/22 08/13/23 documented as of this encounter
--- OUTSIDE RECORDS SUMMARY | 2024-02-28 16:41 | XMS_ITS | Encounter Summary ---
Author Organization [facility] Address [address] [place] [address] Care Team Providers Care Plug Stitcher Name Role Phone Jason Batres MD Primary Care Provi margarita Alexus De La O RN Unavailable Unavailable Reason for Visit * Reason Onset Date Comments Medications Refill 07/12/2022 Encounter Details Date Type Department Care Team (Late st Contact Info) Description 07/12/2022 Refill Jason Batres MD, PC [address] [place] [address] Jason Batres MD [address] [place] [phone] Medications Refill Social History Tobacco Use [...] Refills Last Filled Start Date End Date clotrimazole (LOTRIMIN) 1 % cream Apply to affected area BID until resolved 45 g 1 07/12/2022 methocarbamoL (ROBAXIN) 500 mg tablet Take 1 Tablet by mouth every 8 hours as needed for Pain or Muscle Spasms. 90 Tablet 1 07/12/2022 3 documented in this encounter Plan of Treatment Not on file documented as of this encounter Visit Diagnoses Not on filedocumented in this encounter Discontinued Medications Medication Sig Discontinue Reason Start Date End Da te methocarbamoL (ROBAXIN) 500 mg tablet Take 1 Tablet by mouth every 8 hours as needed for Pain or Muscle Spasms. Reorder 06/15/2022 07/12/2022 documented as of this encounter Care Teams Plug Stitcher Relationship Specialty Start Date End Date Jason Batres MD [address] [place] [address] PCP - General 07/27/11 12/31/23 Alexus De La O, pole setter 04/18/22 08/13/23 documented as of this encounter
--- OUTSIDE RECORDS SUMMARY | 2024-02-28 16:41 | XMS_ITS | Encounter Summary ---
Author Organization [facility] Address [address] [place] [address] Care Team Providers Care Metal Sprayer Protective Coating Name Role Phone Jason Batres MD Primary Care Provi margarita Edmundo De La O RN Unavailable Unavailable Encounter Details Date Type Department Care Team (Late st Contact Info) Description 06/21/2022 Patient Outreach Jason Batres MD, PC [address] [place], [place] [phone] Edmundo De La O RN Social History [...] * Edmundo De La O RN - 06/21/2022 1551 EDT [facility] Percussion Instrument Tuner Care Coordination Percussion Instrument Tuner did not speak with Jeff for follow up at this time because Jeff has follow up officevisit with Dr. Batres to discuss pain management on 06/22/22. PLAN: food production manager will follow up with Jeff in 2 months. EDMUNDO DE LA O RN 06/21/2022 15:52 documented in this encounter Plan of Treatment Not on file documented as of this encounter Visit Diagnoses Not on filedocumented in this encounter Care Teams Metal Sprayer Protective Coating Relationship Specialty Start Date End Date Jason Batres MD [address] [place] [phone] PCP - General 07/27/11 12/31/23 Edmundo De La O RN Care Manager 04/18/22 08/13/23 documented as of this encounter
--- OUTSIDE RECORDS SUMMARY | 2024-02-28 16:41 | XMS_ITS | Encounter Summary ---
Author Organization [facility] Address [address] [place] [address] Care Team Providers Care Churn Operator Name Role Phone Jason Batres MD Primary Care Provi margarita Alexus De La O RN Unavailable Unavailable Encounter Details Date Type Department Care Team (Latest Contact Info) Description 08/16/2022 15:15 EDT - 08/16/2022 23:59 EDT Hospital Encounter [address] [place], [place] [id number] Left hip pain Discharge Disposition: Home or Self Care Social [...] place to sleep or slept in a long-term (including now)? No 05/02/2022 Interpersonal Safety Answer [...] as needed (glucose monitoring). 1 Each 11/14/2017 magnesium oxide (MAG-OX) 400 mg (241.3 mg magnesium) tablet Take 1 Tablet by mouth daily. 30 Tablet 04/17/2022 oxyCODONE (ROXICODONE) 5 mg immediate release tablet Take 1 Tablet by mouth 2 times daily as needed for Pain. Daily Max: 10 mg 10 Tablet 06/02/2022 TAMSulosin (FLOMAX) 0.4 mg capsule Take 1 Capsule by mouth daily. 30 Capsule 2 07/14/2022 apixaban (ELIQUIS) 5 mg tablet Take 1 Tablet by mouth 2 times daily. 60 Tablet 2 07/14/2022 3 atorvastatin (LIPITOR) 20 mg tablet Take 1 Tablet by mouth daily. 30 Tablet 2 07/14/2022 3 gabapentin (NEURONTIN) 300 mg capsule Take 1 Capsule by mouth 3 times daily. 90 Capsule 2 07/14/2022 3 insulin aspart U-100 (NOVOLOG FLEXPEN) 100 unit/mL (3 mL) injectable pen Inject 18 Units into the skin 3 times daily with meals. 15 mL 07/17/2022 4 insulin glargine (LANTUS SOLOSTAR/SEMGLEE) 100 unit/mL (3 mL) injection pen Inject 55 Units into the skin at bedtime. 15 mL 11 06/14/2022 3 lancets Test BID. 100 Each 1 11/11/2013 3 levothyroxine (SYNTHROID) 112 mcg tablet Take 1 Tablet by mouth daily. 30 Tablet 2 07/14/2022 3 metFORMIN (GLUCOPHAGE) 500 mg tablet Take 2 Tablets by mouth 2 times daily with breakfast and dinner. 120 Tablet 2 07/14/2022 3 methocarbamoL (ROBAXIN) 500 mg tablet Take 1 Tablet by mouth every 8 hours as needed for Pain or Muscle Spasms. 90 Tablet 1 07/12/2022 3 pantoprazole (PROTONIX) 40 mg tablet Take 1 Tablet by mouth daily before breakfast. 30 Tablet 2 07/14/2022 3 sertraline (ZOLOFT) 50 mg tablet Take 1 Tablet by mouth daily. 30 Tablet 2 07/14/2022 3 documented as of this encounter Discharge Disposition Disposition Code Departure Means Destination Home or Self Care documented in this encounter Plan of Treatment Not on file documented as of this encounter Procedures Procedure Name Priority Date/Time Associated Diagnosis Comments XR HIP RIGHT 1 VIEW Routine 08/16/2022 1 5:39 EDT Left hip pain XR HIP LEFT 2-3 VIEWS, OPTIONAL PELVIS Routine 08/16/2022 15:39 EDT Left hip pain documented in this encounter Results * XR HIP RIGHT 1 VIEW (08/16/2022 15:39 EDT) Anatomical Region Laterality Modality Lower Extremities Right Computed Radio graphy 08/17/2022 13:2 3 EDT Impressions 08/17/2022 13:23 EDT FINDINGS / IMPRESSION: * ??2 views left and one view right hip * ??Left hip arthroplasty without evidence of periprosthetic fracture or lucency. * ??Severe right hip degenerative changes. * ??Osteopenia. Narrative 08/17/2022 13:23 EDT EXAM/TECHNIQUE: 08/16/2022 3:15 PM ??XR HIP RIGHT 1 VIEW, XR HIP LEFT 2-3 VIEWS, OPTIONAL PELVIS 1 (accession [id number]), 2 (accession [id number]) views ?? HISTORY: ??left brent, right for comparison Procedure Note Alfa Freeman MD - 08/17/2022 EXAM/TECHNIQUE: 08/16/2022 3:15 PM XR HIP RIGHT 1 VIEW, XR HIP LEFT 2-3VIEWS, OPTIONAL PELVIS 1 (accession [id number]), 2 ([id number]) views HISTORY: left brent, right for comparison IMPRESSION FINDINGS / IMPRESSION: * 2 views left and one view right hip * Left hip arthroplasty without evidence of periprosthetic fracture orlucency. * Severe right hip degenerative changes. * Osteopenia. Sachin Burroughs MD MSc FRCSC IMG DIAGNOSTIC I MAGING ORDERABLES Final Result * XR HIP LEFT 2-3 VIEWS, OPTIONAL PELVIS (08/16/2022 15:39 EDT) Anatomical Region Laterality Modality Lower Extremities Left Computed Radio graphy 08/17/2022 13:2 3 EDT Impressions 08/17/2022 13:23 EDT FINDINGS / IMPRESSION: * ??2 views left and one view right hip * ??Left hip arthroplasty without evidence of periprosthetic fracture or lucency. * ??Severe right hip degenerative changes. * ??Osteopenia. Narrative 08/17/2022 13:23 EDT EXAM/TECHNIQUE: 08/16/2022 3:15 PM ??XR HIP RIGHT 1 VIEW, XR HIP LEFT 2-3 VIEWS, OPTIONAL PELVIS 1 (accession [id number]), 2 (accession [id number]) views ?? HISTORY: ??left brent, right for comparison Procedure Note Alfa Freeman MD - 08/17/2022 EXAM/TECHNIQUE: 08/16/2022 3:15 PM XR HIP RIGHT 1 VIEW, XR HIP LEFT 2-3VIEWS, OPTIONAL PELVIS 1 (accession [id number]), 2 ([id number]) views HISTORY: left brent, right for comparison IMPRESSION FINDINGS / IMPRESSION: * 2 views left and one view right hip * Left hip arthroplasty without evidence of periprosthetic fracture orlucency. * Severe right hip degenerative changes. * Osteopenia. Sachin Burroughs MD MSc FRC IMG DIAGNOSTIC I MAGING ORDERABLES Final Result documented in this encounter Visit Diagnoses Diagnosis Left hip pain Pain in joint, pelvic region and thigh documented in this encounter Care Teams Churn Operator Relationship Specialty Start Date End Date Jason Batres MD [address] [place] [id number] PCP - General 07/27/11 12/31/23 Alexus De La O, critical power technician 04/18/22 08/13/23 documented as of this encounter
--- OUTSIDE RECORDS SUMMARY | 2024-02-28 16:41 | XMS_ITS | Encounter Summary ---
Author Organization [facility] Address [address] [place] [address] Care Team Providers Care Foundry Molder Name Role Phone Jason Batres MD Primary Care Provi margarita Alexus De La O RN Unavailable Unavailable Reason for Visit * Reason Comments Foot Problem Encounter Details Date Type Department Care Team (Late st Contact Info) Description 08/18/2022 11:00 EDT Office Visit [facility] Foot & Ankle Program - [address] [address] Elie Betancourt, BRENDA [address] [place] [phone] Neuropathic diabetic ulcer of foot (HCC-CMS) [...] Progress Notes * Elie Betancourt DPM - 08/18/2022 1100 EDT SUBJECTIVE: Jeff Scott returns today for follow-up on his left heel ulcer. Patient has peripheral neuropathy associated with diabetes. OBJECTIVE: Inspection of the ulcer site shows that it has a fibrogranular base. The central portionhas loose fibrous tissue within the subcutaneous layer. There is no surrounding erythema or edema. The wound measures 2.2 x 2.0 cm represent a significant improvement compared to last measurement. IMPRESSION: Encounter Diagnosis Name Primary? 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 Procedure note: Utilizing a sterile #15 scalpel blade and sterile tissue nipper debridement of the subcutaneous layer and loose fibrous tissue was taken down in the central portion of the calcaneal ulcer. This was done to healthy bleeding tissue. There is no probing to bone during this procedure. A wet-to-dry gauze bandage was applied. Patient was also fitted for a heel protector boot so as to limit pressure and friction on the back of the heel during sleeping hours. He will not walk in this boot. Plan for follow-up in 1 month. documented in this encounter Plan of Treatment Not on file documented as of this encounter Visit Diagnoses Diagnosis Neuropathic diabetic ulcer of foot (HCC-CMS)- Primary Type II or unspecified type diabetes mellitus with other specified manifestations, not stated as uncontrolled documented in this encounter Care Teams Foundry Molder Relationship Specialty Start Date End Date Jason Batres MD [address] [place] [id number] PCP - General 07/27/11 12/31/23 Alexus De La O, escrow agent 04/18/22 08/13/23 documented as of this encounter
--- OUTSIDE RECORDS SUMMARY | 2024-02-28 16:41 | XMS_ITS | Encounter Summary ---
Author Organization [facility] Address [address] [place] [address] Care Team Providers Care Radial Saw Operator Name Role Phone Jason Batres MD Primary Care Provi margarita Alexus De La O RN Unavailable Unavailable Reason for Visit * Reason Comments Follow-up Encounter Details Date Type Department Care Team (Late st Contact Info) Description 06/16/2022 13:00 EDT Office Visit [facility] Foot & Ankle Program - [address] [address] Elie Betancourt DPM [address] [place] [phone] Neuropathic diabetic ulcer of foot (HCC-CMS) [...] Progress Notes * Elie Betancourt DPM - 06/16/2022 1300 EDT SUBJECTIVE: Jeff Scott returns today for follow-up on his chronic diabetic ulceration left heel.Patient has been using a walker with surgical shoe. OBJECTIVE: Inspection of the left heel shows progressive evidence of healing with contracture of the central area of necrotic eschar. Healthy granulation tissue is noted around the perimeter without signs of infection. Overall diameter is 4 cm x 3 cm. No signs of infection are noted. A loosening eschar is also noted on the lateral aspect of the left fifth toe. A very small central ulcer still exists with small eschar. No signs of infection are noted. IMPRESSION: Encounter Diagnosis Name Primary? 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 He will continue with local wound care. He will continue with the walker with protective surgical shoe. Plan for follow-up in 1 month. I spent a total of 10 minutes [...] uncontrolled documented in this encounter Care Teams Radial Saw Operator Relationship Specialty Start Date End Date Jason Batres MD [address] [place] [id number] PCP - General 07/27/11 12/31/23 Alexus De La O, charging manipulator 04/18/22 08/13/23 documented as of this encounter
--- OUTSIDE RECORDS SUMMARY | 2024-02-28 16:41 | XMS_ITS | Encounter Summary ---
Author Organization [facility] Address [address] [place] [address] Care Team Providers Care Deputy Juvenile Officer Name Role Phone Jason Batres MD Primary Care Provi margarita Alexus De La O RN Unavailable Unavailable Reason for Visit * Reason Comments Pain Follow-up Encounter Details Date Type Department Care Team (Late st Contact Info) Description 08/16/2022 15:30 EDT Office Visit [facility] Total Joint Program - [address] [address] Sachin Burroughs MD MSc [address] [phone] Status post total replacement of [...] Progress Notes * Sachin Burroughs MD - 08/16/2022 1530 EDT It was a pleasure to reassess Jeff in our orthopedic clinic today. As you know, this 61-year-old gentleman underwent a left total hip replacement by myself in February 2022. He has done very well postoperatively. He denies any hip pain. He still has some discomfort with left active hip flexion. Hedenies any fevers or chills. He ambulates with a walker. He has a below-knee prosthesis on the right side. He tells me that he is currently watching his diet and he is very careful with his diabetes control. Nevertheless, he managed to get an ulcer on the operative side on left foot, which she relates to footwear. He says he gets wound care 3 times a week. He says the wound is clean and superficial and not infected. He is not taking antibiotics. 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 On exam, the patient ambulated with a mild limp given his limitations. Left hip incision was well-healed with no sign of infection. Pain-free left hip range of motion. Slight discomfort with left hipactive flexion. Covered wound of the left heel. His x-rays demonstrate the left total hip components in good position with no hardware complications. I am very pleased with his progress today with respect to his left total hip replacement. Again I stressed the importance of avoiding a diabetic foot ulcer at all cost. If this gets infected it can affect his hip and he can end up with a major issues. He reassures me that he is doing his best. All of his questions were answered and he was pleased with our interaction today. He should see me back for follow-up at the 1 year shweta for routine surveillance with new x-rays of the left hip. documented in this encounter Plan of Treatment Not on file documented as of this encounter Visit Diagnoses Diagnosis Status post total replacement of left hip- Primary documented in this encounter Care Teams Deputy Juvenile Officer Relationship Specialty Start Date End Date Jason Batres MD [address] [place] [address] PCP - General 07/27/11 12/31/23 Alexus De La O, rn call center 04/18/22 08/13/23 documented as of this encounter
--- OUTSIDE RECORDS SUMMARY | 2024-02-28 16:41 | XMS_ITS | Encounter Summary ---
Author Organization [facility] Address [address] [place] [address] Care Team Providers Care Well Head Pumper Name Role Phone Jason Batres MD Primary Care Provi margarita Alexus De La O RN Unavailable Unavailable Reason for Visit * Reason Onset Date Comments Medications Refill 07/11/2022 Encounter Details Date Type Department Care Team (Late st Contact Info) Description 07/11/2022 Refill [facility] [address] [place] [address] Constance Briones, RN Medications Refill [...] place to sleep or slept in a halfway (including now)? No 05/02/2022 Interpersonal Safety Answer [...] 3 times daily with meals. 15 mL 07/11/2022 07/17/2022 documented in this encounter Miscellaneous Notes * Telephone Encounter - Constance Briones RN - 07/11/2022 0921 EDT refill documented in this encounter Plan of Treatment Not on file documented as of this encounter Visit Diagnoses Not on filedocumented in this encounter Discontinued Medications Medication Sig Discontinue Reason Start Date End Da te insulin aspart U-100 (NOVOLOG FLEXPEN) 100 unit/mL (3 mL) injectable pen Inject 18 Units into the skin 3 times daily with meals. Reorder 04/17/2022 07/11/2022 documented as of this encounter Care Teams Well Head Pumper Relationship Specialty Start Date End Date Jason Batres MD [address] [place] [address] PCP - General 07/27/11 12/31/23 Alexus De La O, crown ironer 04/18/22 08/13/23 documented as of this encounter
--- OUTSIDE RECORDS SUMMARY | 2024-02-28 16:41 | XMS_ITS | Encounter Summary ---
Author Organization [facility] Address [address] [place] [address] Care Team Providers Care Heel Attacher Wood Name Role Phone Jason Batres MD Primary Care Provi margarita Alexus De La O RN Unavailable Unavailable Reason for Visit * Reason Onset Date Comments Update 08/02/2022 Appointment Related 08/02/2022 Encounter Details Date Type Department Care Team (Late st Contact Info) Description 08/02/2022 Telephone [facility] Total Joint Program - [address] [address] Sachin Burroughs MD MSc [address] [phone] Update; Appointment Related Social History Tobacco Use Types [...] encounter Miscellaneous Notes * Telephone Encounter - Katherine Patel LPN - 08/03/2022 0953 EDT Return call placed to [facility] Ver[facility], Home Health regarding patients open area on BKA site. Glenys was informed that per Dr. Arzate pt should f/u with Dr. Arianne Gonzalez to assess for a prosthetic modification. This nurse will update Dr. Gonzalez's MA and request a f/u appointment. Glenys states they are currently using a Mepilex over the wound. KATHERINE PATEL LPN 08/03/2022 9:56 * Telephone Encounter - Jesús Gorman - 08/02/2022 1313 EDT Reason for Call: Update Summary: Patient has a new open sore on his right BKA right over the bone on the anterior side. Glenys believes it may be caused by friction caused by his prosthetic. Appointment Offered? Norah Gorman 08/02/2022 13:13 documented in this encounter Plan of Treatment Not on file documented as of this encounter Visit Diagnoses Not on filedocumented in this encounter Care Teams Heel Attacher Wood Relationship Specialty Start Date End Date Jason Batres MD [address] [place] [id number] PCP - General 07/27/11 12/31/23 Alexus De La O, strategic account director 04/18/22 08/13/23 documented as of this encounter
--- OUTSIDE RECORDS SUMMARY | 2024-02-28 16:41 | XMS_ITS | Encounter Summary ---
Author Organization [facility] Address [address] [place] [address] Care Team Providers Care Switchboard Receptionist Name Role Phone Jason Batres MD Primary Care Provi margarita Edmundo De La O RN Unavailable Unavailable Encounter Details Date Type Department Care Team (Late st Contact Info) Description 05/31/2022 Patient Outreach Jason Batres MD, [facility] [address] [place], [place] [address] Edmundo De La O RN Social History [...] Recorded In the last 10 days, have erica franks been in contact with someone who was [...] * Edmundo De La O RN - 05/31/2022 1114 EDT [facility] Care Management Follow Up grain grader followed up with Jeff's son Js by phone for medication management and care coordination . TOPIC OF CONVERSATION: ??? Reviewed assessment and plan from previous visit with patient. ??? Engaged patient in conversation related to positive behavior change, self- management, goal setting and action planning using motivational interviewing and active listening. ??? Jeff still doesn't have a cell phone so this RN spoke with Js, Jeff's son. ?? Js reports that Jeff is doing pretty well. A is coming 3 times per week for PT and wound care of left heel pressure sore . Jeff has seen Dr. Betancourt about this wound. ?? Js says Jeff is compliant with his medications and is filling a weekly pill box. Js supervises or checks this. Js didn't want to start bubble packs yet, in case Jeff had to have dose changes to his medications, but he has an appkication from [facility]. ?? Js says Jeff is testing blood glucose 3 times daily with meals. ?? Jeff has [employer] for transportation , and Js and Jeff's brother also drive him to appointments. ?? Js says someone is helping Jeff with longer term housing, and that this should be getting easier when Jeff's divorce is finalized. Prioritized Patient Identified Goals: 1. Jeff will Take Medications as directed daily on a regular basis every day. ??Achievement towards goals:In Progress. 2. Patient will test blood glucose 3 times daily before meals. ??Achievement towards goal: In Progress Plan CM will follow-up In 2 months EDMUNDO DE LA O RN 05/31/2022 11:18 documented in this encounter Plan of Treatment Not on file documented as of this encounter Visit Diagnoses Not on filedocumented in this encounter Care Teams Switchboard Receptionist Relationship Specialty Start Date End Date Jason Batres MD [address] [place] [id number] PCP - General 07/27/11 12/31/23 Edmundo De La O RN Care Manager 04/18/22 08/13/23 documented as of this encounter
--- OUTSIDE RECORDS SUMMARY | 2024-02-28 16:41 | XMS_ITS | Encounter Summary ---
Author Organization [facility] Address [address] [place] [address] Care Team Providers Care Shield Runner Name Role Phone Jason Batres MD Primary Care Provi margarita Edmundo De La O RN Unavailable Unavailable Encounter Details Date Type Department Care Team (Late st Contact Info) Description 06/14/2022 Patient Outreach Jason Batres MD, PC [address] [place], [place] [phone] Edmundo De La O RN Social History [...] * Edmundo De La O RN - 06/14/2022 1156 EDT [facility] Care Management Follow Up government clerk followed up with Jeff by phone for medication management. . TOPIC OF CONVERSATION: ??? Reviewed assessment and plan from previous visit with patient. ??? Engaged patient in conversation related to positive behavior change, self- management, goal setting and action planning using motivational interviewing and active listening. ??? Jeff reports 7-10/12 left thigh pain when he tries to move his left leg. He says he had a left hip replacement several months ago , and the hip itself is fine. He says he has been doing his physical therapy exercises every other day and when he stops his exercises and then tries to move the left leg again, his left thigh is very painful. ??? Jeff was discharged from home health physical therapy this week. He had been doing his exercises daily, but the PT told him to do the exercised every other day. ??? He keeps his left foot elevated for periods of time per instructions from Dr. Betancourt. ??? Jeff says he requested a refill of oxycodone from Dr. Batres to treat this pain He says he's using Tyleonol but that isn't helping much. ?? Jeff reports that he is taking his medications as directed daily from a weekly pill box. He says he's only forgotten a few times. We discussed strategies to prevent skipping medications ?? He says he has been taking Tylenol 1000 mg once daily and nd Gabapentin 300 mg 3 times daily. Erma not know if he is taking Methocarbamol. ?? Jeff says he is taking Lantus daily at bed time. ?? Spoke to Js, [place] son, who says he thinks Jeff's pain is more like muscle soreness, and he is not in favor of Jeff using oxycodone. Js says Jeff had a problem with taking too much opioid medication previously. Prioritized Patient Identified Goals: 1.??Jeff will Take Medications as directed daily on a regular basis every day. ??Achievement towards goals:In Progress. ?? 2.??Patient will test blood glucose 3 times daily before meals.?Achievement towards goal: In Progress Plan: Advised Jeff that this RN will discuss oxycodone refill with Dr. Batres and call him back. Jeff has an office visit with Dr. Batres 06/22/22 CM will follow-up in one month EDMUNDO DE LA O RN 06/14/2022 12:09 documented in this encounter Plan of Treatment Not on file documented as of this encounter Visit Diagnoses Not on filedocumented in this encounter Care Teams Shield Runner Relationship Specialty Start Date End Date Jason Batres MD [address] [place] [id number] PCP - General 07/27/11 12/31/23 Edmundo De La O RN Care Manager 04/18/22 08/13/23 documented as of this encounter
--- OUTSIDE RECORDS SUMMARY | 2024-02-28 16:41 | XMS_ITS | Encounter Summary ---
Author Organization [facility] Address [address] [place] [address] Care Team Providers Care Director Physical Therapy Name Role Phone Jason Batres MD Primary Care Provi margarita Alexus De La O RN [facility] Internal Medicine, Primary Care Provi margarita Reason for Visit * Reason Onset Date Comments Hip Pain 06/21/2022 Encounter Details Date Type Department Care Team (Late st Contact Info) Description 06/21/2022 Orders Only [facility] Total Joint Program - [address] [address] Sachin Burroughs MD MSc [address] [phone] Left hip pain (Primary Dx) Social History Tobacco Use Types [...] of Assessment Author Yes 11/20/2021 20:00 EDChelsea Martinez, RN documented as of this encounter Mental Status * Because of a physical, mental, or emotional condition, do you have serious difficulty concentrating, remembering, or making decisions? (5 years old or older) Answer Entry Date Author No 11/20/2021 20:00 Chelsea Kwon RN documented in this encounter Plan of Treatment Scheduled Orders Name Type Priority Associated Diagnoses Orde r Schedule XR HIP LEFT 2-3 VIEWS, OPTIONAL PELVIS Imaging Routine Left hip pain Expected: 06/21/2022 (Approximate) XR HIP RIGHT 1 VIEW Imaging Routine Left hip pain Expected: 06/21/2022 (Approximate) documented as of this encounter Visit Diagnoses Diagnosis Left hip pain- Primary Pain in joint, pelvic region and thigh documented in this encounter Care Teams Director Physical Therapy Relationship Specialty Start Date End Date Jason Batres MD [address] [place] [address] PCP - General 07/27/11 12/31/23 [facility] Internal Medicine, [address] [place] [address] PCP - General 01/01/24 Alexus De La O, veneer layer 04/18/22 08/13/23 documented as of this encounter
--- OUTSIDE RECORDS SUMMARY | 2024-02-28 16:41 | XMS_ITS | Encounter Summary ---
Author Organization [facility] Address [address] [place] [address] Care Team Providers Care Commercial Fisherman Name Role Phone Jason Batres MD Primary Care Provi margarita Alexus De La O RN [facility] Internal Medicine, Primary Care Provi margarita Reason for Visit * Reason Onset Date Comments Hip Pain 08/16/2022 Encounter Details Date Type Department Care Team (Late st Contact Info) Description 08/16/2022 Orders Only [facility] Total Joint Program - [address] [address] Sachin Burroughs MD MSc [address] [address] Left hip pain (Primary Dx) [...] LEFT 2-3 VIEWS, OPTIONAL PELVIS 1 (accession [id number]), 2 (accession [id number]) views ?? HISTORY: ??left brent, right for comparison Procedure Note Alfa Freeman MD - 08/17/2022 EXAM/TECHNIQUE: 08/16/2022 3:15 PM XR HIP RIGHT 1 VIEW, XR HIP LEFT 2-3VIEWS, OPTIONAL PELVIS 1 (accession [id number]), 2 ([id number]) views HISTORY: left brent, right for comparison IMPRESSION FINDINGS / IMPRESSION: * 2 views left and one view right hip * Left hip arthroplasty without evidence of periprosthetic fracture orlucency. * Severe right hip degenerative changes. * Osteopenia. us Sachin Burroughs MD MSc FRCSC IMG DIAGNOSTIC [...] LEFT 2-3 VIEWS, OPTIONAL PELVIS 1 (accession [id number]), 2 (accession [id number]) views ?? HISTORY: ??left brent, right for comparison Procedure Note Alfa Freeman MD - 08/17/2022 EXAM/TECHNIQUE: 08/16/2022 3:15 PM XR HIP RIGHT 1 VIEW, XR HIP LEFT 2-3VIEWS, OPTIONAL PELVIS 1 (accession [id number]), 2 ([id number]) views HISTORY: left brent, right for comparison IMPRESSION FINDINGS / IMPRESSION: * 2 views left and one view right hip * Left hip arthroplasty without evidence of periprosthetic fracture orlucency. * Severe right hip degenerative changes. * Osteopenia. us Sachin Burroughs MD MSc FRC IMG DIAGNOSTIC I MAGING ORDERABLES Final Result documented in this encounter Visit Diagnoses Diagnosis Left hip pain- Primary Pain in joint, pelvic region and thigh Left hip pain Pain in joint, pelvic region and thigh documented in this encounter Care Teams Commercial Fisherman Relationship Specialty Start Date End Date Jason Batres MD [address] [place] [address] PCP - General 07/27/11 12/31/23 [facility] Internal Medicine, [address] [place] [address] PCP - General 01/01/24 Alexus De La O, leaflet or newspaper deliverer 04/18/22 08/13/23 documented as of this encounter
--- OUTSIDE RECORDS SUMMARY | 2024-02-28 16:41 | XMS_ITS | Encounter Summary ---
Author Organization [facility] Address [address] [place] [address] Care Team Providers Care Deputy County Counsel Name Role Phone Jason Batres MD Primary Care Provi margarita Alexus De La O RN [facility] Internal Medicine, Primary Care Provi margarita Reason for Visit * Reason Onset Date Comments Hypertension 08/21/2022 Encounter Details Date Type Department Care Team (Late st Contact Info) Description 08/21/2022 Telephone Terry Batres MD [address] [address] Jason Batres MD [address] [place] [phone] Hypertension Social History Tobacco Use Types [...] Tablet by mouth daily. 90 Tablet 1 08/21/2022 10/30/2022 documented in this encounter Miscellaneous Notes * Telephone Encounter - Jason Batres MD - 08/21/2022 1506 EDT See my note from July 24 below when Home Health called- I was trying to set up a visit. But I knowit can be challenging to get Jeff in - so let's start losartan 25 mg PO every day. I sent this in.But he should have an office visit for a BP check and a BMP in 4-6 weeks. Jason Batres MD Jeff's BP's since he was discharged in our system are usually in the 120 range, there is one that is 133. However, he does have diabetes so would benefit from an KACEY-I or ARB. But I would like this to be initiated at a visit to discuss with Jeff. This could be over telehealth. Can we reach out [facility] and see if we could set that up and it could be with Livan Horton, or Carmelita Hogue. I would likely use losartan 25-50 mg * Telephone Encounter - Tangela Garrett - 08/21/2022 1312 EDT Kala from [facility] stating pt's BP is still elevated and has been at every check in. Today pt's BP was 144/80, pt has no associated sx. They did a re- certification on Sunday. documented in this encounter Plan of Treatment Not on file documented as of this encounter Visit Diagnoses Not on filedocumented in this encounter Care Teams Deputy County Counsel Relationship Specialty Start Date End Date Jason Batres MD [address] [place] [address] PCP - General 07/27/11 12/31/23 [facility] Internal Medicine, [address] [place] [address] PCP - General 01/01/24 Alexus De La O, marshmallow machine operator 04/18/22 08/13/23 documented as of this encounter
--- OUTSIDE RECORDS SUMMARY | 2024-02-28 16:41 | XMS_ITS | Encounter Summary ---
Author Organization [facility] Address [address] [place] [address] Care Team Providers Care Marine Habitat Resource Specialist Name Role Phone Jason Batres MD Primary Care Provi margarita Alexus De La O RN [facility] Internal Medicine, Primary Care Provi margarita Reason for Visit * Reason Onset Date Comments Medications Refill 07/14/2022 Encounter Details Date Type Department Care Team (Late st Contact Info) Description 07/14/2022 Refill [facility], [address] [facility] [address] [place] [address] Jason Batres MD [address] [place] [phone] Medications Refill Social History Tobacco Use [...] Refills Last Filled Start Date End Date TAMSulosin (FLOMAX) 0.4 mg capsule Take 1 Capsule by mouth daily. 30 Capsule 2 07/14/2022 sertraline (ZOLOFT) 50 mg tablet Take 1 Tablet by mouth daily. 30 Tablet 2 07/14/2022 3 pantoprazole (PROTONIX) 40 mg tablet Take 1 Tablet by mouth daily before breakfast. 30 Tablet 2 07/14/2022 3 metFORMIN (GLUCOPHAGE) 500 mg tablet Take 2 Tablets by mouth 2 times daily with breakfast and dinner. 120 Tablet 2 07/14/2022 3 levothyroxine (SYNTHROID) 112 mcg tablet Take 1 Tablet by mouth daily. 30 Tablet 2 07/14/2022 3 gabapentin (NEURONTIN) 300 mg capsule Take 1 Capsule by mouth 3 times daily. 90 Capsule 2 07/14/2022 3 atorvastatin (LIPITOR) 20 mg tablet Take 1 Tablet by mouth daily. 30 Tablet 2 07/14/2022 3 apixaban (ELIQUIS) 5 mg tablet Take 1 Tablet by mouth 2 times daily. 60 Tablet 2 07/14/2022 3 documented in this encounter Miscellaneous Notes * Telephone Encounter - Mena Gomez - 07/14/2022 1016 EDT refills documented in this encounter Plan of Treatment Not on file documented as of this encounter Visit Diagnoses Not on filedocumented in this encounter Discontinued Medications Medication Sig Discontinue Reason Start Date End Da te apixaban (ELIQUIS) 5 mg tablet Take 1 Tablet by mouth 2 times daily. Reorder 05/11/2022 07/14/2022 atorvastatin (LIPITOR) 20 mg tablet Take 1 Tablet by mouth daily. Reorder 05/11/2022 07/14/2022 gabapentin (NEURONTIN) 300 mg capsule Take 1 Capsule by mouth 3 times daily. Reorder 05/11/2022 07/14/2022 levothyroxine (SYNTHROID) 112 mcg tablet Take 1 Tablet by mouth daily. Reorder 05/11/2022 07/14/2022 metFORMIN (GLUCOPHAGE) 500 mg tablet Take 2 Tablets by mouth 2 times daily with breakfast and dinner. Reorder 05/11/2022 07/14/2022 pantoprazole (PROTONIX) 40 mg tablet Take 1 Tablet by mouth daily before breakfast. Reorder 05/11/2022 07/14/2022 sertraline (ZOLOFT) 50 mg tablet Take 1 Tablet by mouth daily. Reorder 05/11/2022 07/14/2022 TAMSulosin (FLOMAX) 0.4 mg capsule Take 1 Capsule by mouth daily. Reorder 05/11/2022 07/14/2022 documented as of this encounter Care Teams Marine Habitat Resource Specialist Relationship Specialty Start Date End Date Jason Batres MD [address] [place] [address] PCP - General 07/27/11 12/31/23 [facility] Internal Medicine, [address] [place] [address] PCP - General 01/01/24 Alexus De La O, core worker 04/18/22 08/13/23 documented as of this encounter
--- OUTSIDE RECORDS SUMMARY | 2024-02-28 16:41 | XMS_ITS | Encounter Summary ---
Author Organization [facility] Address [address] [place] [address] Care Team Providers Care Assistant Attorney General Name Role Phone Jason Batres MD Primary Care Provi margarita Alexus De La O RN Unavailable Unavailable Reason for Visit * Reason Onset Date Comments Wound Care 07/12/2022 Encounter Details Date Type Department Care Team (Late st Contact Info) Description 07/12/2022 Telephone [facility] Foot & Ankle Program - [address] [address] Elie Betancourt DPM [address] [place] [phone] Wound Care Social History Tobacco Use [...] encounter Miscellaneous Notes * Telephone Encounter - Herlinda Navarro LPN - 07/12/[address] Betancourt ok to use the thera Honey on the wound. Left message for [place] correctional counselor/case manager statingthis. HERLINDA NAVARRO LPN * Telephone Encounter - Giselle Lynch - 07/12/2022 0843 EDT Kala from home health phoned took pictures and reached out to their wound nurse whom suggested they use Thera Honey on pt's wound, Kala is asking if Dr Betancourt wants to go along with this plan or does he want to see pt in office first. Please Advise documented in this encounter Plan of Treatment Not on file documented as of this encounter Visit Diagnoses Not on filedocumented in this encounter Care Teams Assistant Attorney General Relationship Specialty Start Date End Date Jason Batres MD [address] [place] [address] PCP - General 07/27/11 12/31/23 Alexus De La O, administrator social welfare 04/18/22 08/13/23 documented as of this encounter
--- OUTSIDE RECORDS SUMMARY | 2024-02-28 16:41 | XMS_ITS | Encounter Summary ---
Author Organization [facility] Address [address] [place] [address] Care Team Providers Care Pst Specialist Name Role Phone Jason Batres MD Primary Care Provi margarita Alexus De La O RN [facility] Internal Medicine, Primary Care Provi margarita Encounter Details Date Type Department Care Team (Late st Contact Info) Description 06/08/2022 Telephone [facility] Physical Medicine & Rehabilitation - [facility] [address] [place], [place] [phone] Arianne Gonzalez MD [address] [place] [phone] Social History Tobacco Use Types Packs/Day Years [...] on filedocumented in this encounter Care Teams Pst Specialist Relationship Specialty Start Date End Date Jason Batres MD [address] [place] [address] PCP - General 07/27/11 12/31/23 [facility] Internal Medicine, [address] [place] [address] PCP - General 01/01/24 Alexus De La O, phlebotomist 04/18/22 08/13/23 documented as of this encounter
--- OUTSIDE RECORDS SUMMARY | 2024-02-28 16:41 | XMS_ITS | Encounter Summary ---
Author Organization [facility] Address [address] [place] [address] Care Team Providers Care Steward/Stewardess Name Role Phone Jason Batres MD Primary Care Provi margarita Edmundo De La O RN Unavailable Unavailable Encounter Details Date Type Department Care Team (Late st Contact Info) Description 07/12/2022 Patient Outreach Jason Batres MD, PC [address] [place], [place] [phone] Edmundo De La O RN Social History [...] * Edmundo De La O RN - 07/12/2022 [facility]846 [facility] Up overlock hemmer followed up with Jeff by phone for medication management. . TOPIC OF CONVERSATION: ??? Reviewed assessment and plan from previous visit with patient. ??? Engaged patient in conversation related to positive behavior change, self- management, goal setting and action planning using motivational interviewing and active listening. ??? Jeff had a follow up visit with Dr. Batres 07/06/22, last week. ??? Jeff said he and Dr. Batres discussed using Massage, heat, and Methocarbamol 500 mg 3 times daily for his left quad muscle pain . Jeff said he doesn't have Methocarbamol and needs a new prescription. ??? Dr. Batres and Jeff also discussed using Clotrimazole 1% cream for the red edwards on Jeff's right knee, and Jeff said the pharmacy didn't get an order for this. ??? Jeff said he's doing well with his routine of testing his blood glucose 3 times daily and taking his insulin as directed. He said his glucometer needs new batteries, but Jeff hasn't gotten themyet. We discussed strategies to remember to get the batteries when Jeff goes to the pharmacy. ??? Jeff said he's doing well, and feeling better about getting out to do his own grocery shoppingand other errands. Prioritized Patient Identified Goals: 1.??Jeff will??Take Medications as directed daily??on a regular basis every day.?Achievement towards goals:In Progress.? 2.??Patient will test blood glucose 3 times daily before meals.?Achievement towards goal: In Progress Plan: Notify Dr.. Batres of need for prescriptions to Jeff's pharmacy. CM will follow-up in three months EDMUNDO DE LA O RN 07/12/2022 8:55 documented in this encounter Plan of Treatment Not on file documented as of this encounter Visit Diagnoses Not on filedocumented in this encounter Care Teams Steward/Stewardess Relationship Specialty Start Date End Date Jason Batres MD [address] [place] [address] PCP - General 07/27/11 12/31/23 Edmundo De La O, overlock hemmer 04/18/22 08/13/23 documented as of this encounter
--- OUTSIDE RECORDS SUMMARY | 2024-02-28 16:41 | XMS_ITS | Encounter Summary ---
Author Organization [facility] Address [address] [place] [address] Care Team Providers Care Chef German Name Role Phone Jason Batres MD Primary Care Provi margarita Alexus De La O RN [facility] Internal Medicine, Primary Care Provi margarita Reason for Visit * Reason Onset Date Comments Leg Pain 06/06/2022 Encounter Details Date Type Department Care Team (Late st Contact Info) Description 06/06/2022 Telephone [facility] Physical Medicine & Rehabilitation [place] [place] [address] Arianne Gonzalez MD [address] [place] [phone] Leg Pain Social History Tobacco Use Types Packs/Day Years [...] Author Yes 11/20/2021 20:00 EDChelsea Martinez RN * Do you have difficulty dressing or bathing? (5 years old or older) Answer Date of Assessment Author Yes 11/20/2021 20:00 EDT Chelsea Nair, RN * Because of a physical, mental, [...] encounter Miscellaneous Notes * Telephone Encounter - Giselle Lynch - 06/06/2022 1533 EDT Jeff phone was seen at 1:30 at [facility] to adjust his prostesis, while there Elbert @ [employer] noticed that Jeff had 4 or 5 nickel sized red spots on skin. Elbert took pictures and states he sent them to Dr Gonzalez., Please call and advise Jeff what Dr Gonzalez thinks. And if he needs to go in to be checked. Jeff is staying at the Residence [facility] in [place]. # [phone] ONLY CALL Pt ON THE 115 # documented in this encounter Plan of Treatment Not on file documented as of this encounter Visit Diagnoses Not on filedocumented in this encounter Care Teams Chef German Relationship Specialty Start Date End Date Jason Batres MD [address] [place] [address] PCP - General 07/27/11 12/31/23 [facility] Internal Medicine, [address] [place] [address] PCP - General 01/01/24 Alexus De La O, offender employment specialist 04/18/22 08/13/23 documented as of this encounter
--- OUTSIDE RECORDS SUMMARY | 2024-02-28 16:41 | XMS_ITS | Encounter Summary ---
Author Organization [facility] Address [address] [place] [address] Care Team Providers Care Software Integrator Name Role Phone Jason Batres MD Primary Care Provi margarita Alexus De La O RN [facility] Internal Medicine, Primary Care Provi margarita Reason for Visit * Reason Onset Date Comments Medications Refill 06/02/2022 Encounter Details Date Type Department Care Team (Late st Contact Info) Description 06/02/2022 Refill Terry Batres MD [address] [address] Jason Batres MD [address] [place] [phone] Medications Refill Social History Tobacco Use [...] Refills Last Filled Start Date End Date oxyCODONE (ROXICODONE) 5 mg immediate release tablet Take 1 Tablet by mouth 2 times daily as needed for Pain. Daily Max: 10 mg 10 Tablet 06/02/2022 documented in this encounter Plan of Treatment Not on file documented as of this encounter Visit Diagnoses Not on filedocumented in this encounter Discontinued Medications Medication Sig Discontinue Reason Start Date End Da te oxyCODONE (ROXICODONE) 5 mg immediate release tablet Take 1 Tablet by mouth 2 times daily as needed for Pain. Daily Max: 10 mg Reorder 05/11/2022 06/02/2022 documented as of this encounter Care Teams Software Integrator Relationship Specialty Start Date End Date Jason Batres MD [address] [place] [address] PCP - General 07/27/11 12/31/23 [facility] Internal Medicine, [address] [place] [address] PCP - General 01/01/24 Alexus De La O, licensed social worker 04/18/22 08/13/23 documented as of this encounter
--- OUTSIDE RECORDS SUMMARY | 2024-02-28 16:41 | XMS_ITS | Encounter Summary ---
Author Organization [facility] Address [address] [place] [address] Care Team Providers Care Cloud Security Architect Name Role Phone Jason Batres MD Primary Care Provi margarita Alexus De La O RN Unavailable Unavailable Reason for Visit * Reason Onset Date Comments Physical Therapy 06/12/2022 Encounter Details Date Type Department Care Team (Late st Contact Info) Description 06/12/2022 Telephone Terry Batres MD [address] [address] Jason Batres MD [address] [place] [phone] Physical Therapy Social History Tobacco Use [...] * Telephone Encounter - Tangela Garrett - 06/12/2022 1139 EDT Penelope from [facility] stating they are discharging pt from PT services, pt is limited due to wounds of his heels. Nursing will still be seeing pt for wound care. TANGELA SALVADOR MA documented in this encounter Plan of Treatment Not on file documented as of this encounter Visit Diagnoses Not on filedocumented in this encounter Care Teams Cloud Security Architect Relationship Specialty Start Date End Date Jason Batres MD [address] [place] [address] PCP - General 07/27/11 12/31/23 Alexus De La O RN Care Manager 04/18/22 08/13/23 documented as of this encounter
--- OUTSIDE RECORDS SUMMARY | 2024-02-28 16:41 | XMS_ITS | Encounter Summary ---
Author Organization [facility] Address [address] [place] [address] Care Team Providers Care Psychiatry Resident Name Role Phone Jason Batres MD Primary Care Provi margarita Alexus De La O RN Unavailable Unavailable Reason for Visit * Reason Onset Date Comments Social Work 08/25/2022 Encounter Details Date Type Department Care Team (Late st Contact Info) Description 08/25/2022 Telephone Terry Batres MD [address] [address] Jason Batres MD [address] [place] [phone] Social Work Social History Tobacco Use [...] of Assessment Author Yes 11/20/2021 20:00 EDT Cehlsea Nair, RN documented as of this encounter Mental Status * Because of a physical, mental, or emotional condition, do you have serious difficulty concentrating, remembering, or making decisions? (5 years old or older) Answer Entry Date Author No 11/20/2021 20:00 EDT Chelsea Nair, RN documented in this encounter Miscellaneous Notes * Telephone Encounter - Tangela Garrett - 08/25/2022 0831 EDT CHANI Bond from [facility] stating she had her initial SW visit with pt yesterday. She will be writing an order for three additional visits, one PRN visit. TANGELA SALVADOR MA documented in this encounter Plan of Treatment Not on file documented as of this encounter Visit Diagnoses Not on filedocumented in this encounter Care Teams Psychiatry Resident Relationship Specialty Start Date End Date Jason Batres MD [address] [place] [address] PCP - General 07/27/11 12/31/23 Alexus De La O, day care center director 04/18/22 08/13/23 documented as of this encounter
--- OUTSIDE RECORDS SUMMARY | 2024-02-28 16:41 | XMS_ITS | Encounter Summary ---
Author Organization [facility] Address [address] [place] [address] Care Team Providers Care Commercial Sales Consultant Name Role Phone Jason Batres MD Primary Care Provi margarita Alexus De La O RN Unavailable Unavailable Encounter Details Date Type Department Care Team (Late st Contact Info) Description 08/18/2022 Orders Only [facility] Foot & Ankle Program - [address] [address] Elie Betancourt DPM [address] [place] [phone] Chronic ulcer of great toe of left foot, unspecified ulcer stage (HCC-CMS) (Primary Dx) Social History Tobacco Use [...] as of this encounter Visit Diagnoses Diagnosis Chronic ulcer of great toe of left foot, unspecified ulcer stage ([facility])- Primary documented in this encounter Orders Equipment Count Last Ordered Date First Orde red Date GENERIC DME ORDER 1 08/22/2022 documented in this encounter Care Teams Commercial Sales Consultant Relationship Specialty Start Date End Date Jason Batres MD [address] [place] [address] PCP - General 07/27/11 12/31/23 Alexus De La O RN Care Manager 04/18/22 08/13/23 documented as of this encounter
--- OUTSIDE RECORDS SUMMARY | 2024-02-28 16:41 | XMS_ITS | Encounter Summary ---
Author Organization [facility] Address [address] [place] [address] Care Team Providers Care Tetryl Dissolver Operator Name Role Phone Jason Batres MD Primary Care Provi margarita Edmundo De La O RN Unavailable Unavailable Encounter Details Date Type Department Care Team (Late st Contact Info) Description 06/15/2022 Patient Outreach Jason Batres MD, PC [address] [place], [place] [phone] Edmundo De La O RN Social History [...] for Pain or Muscle Spasms. 90 Tablet 06/15/2022 07/12/2022 documented in this encounter Progress Notes * Edmundo De La O RN - 06/15/2022922 EDT [facility] Human Resource Professional Care Coordination ?? ladle builder spoke with Jeff on 06/15/22 in order to coordinate care. ?? Advised Jeff that Dr. Batres would like him to try using Methocarbamol for his left leg muscle pain. ?? Jeff says he needs a refill of methocarbamol.He would like this sent to [facility] pharmacy on [address] in [place]. ?? Advised Jeff that this RN will check in with him next week to see how this is working and that another option will be to increase his gabapentin dose . ?? Jeff also knows he may discuss with Dr. Batres by phone if he wishes. PLAN: Follow up with Jeff in 1 week. EDMUNDO DE LA O RN 06/15/2022 9:28 documented in this encounter Miscellaneous Notes * Addendum Note - Jason Batres MD - 06/15/2022922 EDTAddended by: JASON BATRES on: 06/15/2022 10:39 Modules accepted: Orders documented in this encounter Plan of Treatment Not on file documented as of this encounter Visit Diagnoses Not on filedocumented in this encounter Discontinued Medications Medication Sig Discontinue Reason Start Date End Da te methocarbamoL (ROBAXIN) 500 mg tablet Take 1 Tablet by mouth every 8 hours as needed for Pain or Muscle Spasms. Reorder 04/17/2022 06/15/2022 documented as of this encounter Care Teams Tetryl Dissolver Operator Relationship Specialty Start Date End Date Jason Batres MD [address] [place] [address] PCP - General 07/27/11 12/31/23 Edmundo De La O, ladle builder 04/18/22 08/13/23 documented as of this encounter
--- OUTSIDE RECORDS SUMMARY | 2024-02-28 16:42 | XMS_ITS | Encounter Summary ---
Author Organization [facility] Address [address] [place] [address] Care Team Providers Care Flask Maker Name Role Phone Jason Batres MD Primary Care Provi margarita Alexus De La O RN Unavailable Unavailable Reason for Visit * Reason Onset Date Comments Social Work 05/10/2022 Encounter Details Date Type Department Care Team (Late st Contact Info) Description 05/10/2022 Telephone Terry Batres MD [address] [address] Jason Batres MD [address] [place] [phone] Social Work Social History Tobacco Use [...] Entry Date Author No 11/20/2021 20:00 Chelsea Kwon, RN documented in this encounter Miscellaneous Notes * Telephone Encounter - Tangela Garrett - 05/10/2022 0924 EST Rabia social services assistant from [facility] stating she did a SW assessment with pt and will see him next week for one more visit. They are working on housing options, a personal emergency response system, and an advanced directive. Rabia will refer pt to [facility] after he is d/c from so he can have continued support. TANGELA SALVADOR MA documented in this encounter Plan of Treatment Not on file documented as of this encounter Visit Diagnoses Not on filedocumented in this encounter Care Teams Flask Maker Relationship Specialty Start Date End Date Jason Batres MD [address] [place] [id number] PCP - General 07/27/11 12/31/23 Alexus De La O, clerical warehouseman 04/18/22 08/13/23 documented as of this encounter
--- OUTSIDE RECORDS SUMMARY | 2024-02-28 16:42 | XMS_ITS | Encounter Summary ---
Author Organization [facility] Address [address] [place] [address] Care Team Providers Care Manager Of Selection And Assessment Name Role Phone Jason Batres MD Primary Care Provi margarita Reason for Visit * Reason Comments Medications Refill Encounter Details Date Type Department Care Team (Late st Contact Info) Description 11/18/2021 Refill Jason Batres MD, PC [address] [place], [place] [address] Jason Batres MD [address] [place] [phone] Medications Refill Social History Tobacco Use Types Packs/Day Years Used Date Smoking Tobacco: Never Smokeless Tobacco: Former Chew Alcohol Use Standard Drinks/Week Comments No 0 (1 standard drink = 0.6 oz pur e alcohol) PHQ-2 Answer Date Recorded PHQ-2 SUBTOTAL 1 10/04/2019 Interpersonal Safety Answer Date Record ed Physically [...] hearing? Answer Date of Assessment Author No 12/30/2020 20:43 EDT Amari Ho RN * Are you blind or do you have serious difficulty seeing, even when wearing glasses? Answer Date of Assessment Author No 12/23/2020 22:00 Nickie De Anda RN * Do you have serious difficulty walking or climbing stairs? (5 years old or older) Answer Date of Assessment Author Yes 12/23/2020 22:00 Nickie De Anda RN * Do you have difficulty dressing or bathing? (5 years old or older) Answer Date of Assessment Author No 12/23/2020 22:00 Nikcie De Anda RN * Because of a physical, mental, or emotional condition, does this person have difficulty doing errands alone such as visiting a doctor's office or shopping? Answer Date of Assessment Author Yes 04/26/2021 9:18 Jose David Dougherty RN documented as of this encounter Mental Status * Because of a physical, mental, or emotional condition, does this person have serious difficulty concentrating, remembering, or making decisions? Answer Entry Date Author Yes 04/26/2021 9:18 Jose David Dougherty RN documented in this encounter Ordered Prescriptions Prescription Sig Dispense Quantity Refills Last Filled Start Date End Date levothyroxine (SYNTHROID) 112 mcg tablet TAKE ONE TABLET BY MOUTH ONE TIME DAILY 90 Tablet 11/18/2021 04/17/2022 documented in this encounter Plan of Treatment Not on file documented as of this encounter Visit Diagnoses Not on filedocumented in this encounter Discontinued Medications Medication Sig Discontinue Reason Start Date End Da te levothyroxine (SYNTHROID) 112 mcg tablet Take 1 Tab by mouth daily. 04/22/2020 11/18/2021 documented as of this encounter Care Teams Manager Of Selection And Assessment Relationship Specialty Start Date End Date Jason Batres MD [address] [place] [address] PCP - General 07/27/11 12/31/23 documented as of this encounter
--- OUTSIDE RECORDS SUMMARY | 2024-02-28 16:42 | XMS_ITS | Encounter Summary ---
Author Organization [facility] Address [address] [place] [address] Care Team Providers Care Fence Builder Name Role Phone Jason Batres MD Primary Care Provi margarita Reason for Visit * Reason Comments Follow-up Encounter Details Date Type Department Care Team (Late st Contact Info) Description 11/18/2021 9:30 EDT Office Visit Jason Batres MD, PC [address] [place], [place] [id number] Carmelita Hogue, CMM OPERATOR [address] [place] [address] History of brain tumor (Primary Dx); Type 2 diabetes mellitus without complication, with long-term current use of insulin ([facility]) (HCC); Chronic left hip pain; Bilateral hearing loss due to cerumen impaction; Open wound of left heel, initial encounter Social History Tobacco Use Types [...] Sign Reading Time Taken Comments Blood Pressure 128/78 11/18/2021 0958 EDT Pulse 97 11/18/2021 0958 EDT Temperature - - Respiratory Rate - - Oxygen Saturation 97% 11/18/2021 0958 EDT Inhaled Oxygen Concentration - - Weight - - Height - - Body Mass Index - - documented in this encounter Functional Status * Are you deaf or do you have serious difficulty hearing? Answer Date of Assessment Author No 12/30/2020 20:43 EDT Amari Ho RN * Are you blind or do you have serious difficulty seeing, even when wearing glasses? Answer Date of Assessment Author No 12/23/2020 22:00 EDT Nickie Murillo RN * Do you have serious difficulty walking or climbing stairs? (5 years old or older) Answer Date of Assessment Author Yes 12/23/2020 22:00 EDT Nickie Murillo RN * Do you have difficulty dressing or bathing? (5 years old or older) Answer Date of Assessment Author No 12/23/2020 22:00 EDT Nickie Murillo RN * Because of a physical, mental, [...] 100 unit/mL (3 mL) injection pen Inject 20 Units into the skin at bedtime. 9 mL 3 11/18/2021 3 blood glucose test strips 1 Strip by misc (non-drug; combo route) route 4 times daily. One touch verio flex 100 Each 2 11/18/2021 3 apixaban (ELIQUIS) 5 mg tablet Take 1 Tablet by mouth 2 times daily. 60 Tablet 5 11/18/2021 3 atorvastatin (LIPITOR) 20 mg tablet Take 1 Tablet by mouth daily. 90 Tablet 3 11/18/2021 3 pantoprazole (PROTONIX) 40 mg tablet Take 1 Tablet by mouth 2 times daily. 60 Tablet 1 11/18/2021 3 gabapentin (NEURONTIN) 300 mg capsule Take one capsule HS x 3 days, then increase to BID x 3 days, then TID 90 capsule 1 11/18/2021 3 sertraline (ZOLOFT) 50 mg tablet Take 1/2 tablet daily x 1 week then increase to a full tablet daily 90 Tablet 1 11/18/2021 3 documented in this encounter Progress Notes * Carmelita Hogue, CMM OPERATOR - 11/18/2021 0924 EDT Subjective: Patient ID: Jeff Scott is an 60 y.o. male. Chief Complaint Patient presents with ??? Follow-up HPI Jeff presents with his son Js in follow up. We have not seen Jeff in the office in quite some time as he has been residing at [facility] in [facility]. He was sent to [facility] ED on 09/23/21 with a distended abdomen and coffee ground emesis. He was admitted and had an EGD which revealed mild inflammation and esophagitis. He was started on PPI therapy with resolution of his symptoms. The hospital was not able to find an acute rehab to discharge him to so he was admitted until 11/16/21 when his insurance would not longer cover acute care. His son and his recently moved here from [place] and Jeff is living with him. His son was not prepared for this and is having difficulty providing the care his father needs. Js tells me his father is wheelchair bound due to his leg amputation and hip pain. Jeff is unable to transfer so he needs assistance getting to the restroom, getting food from the kitchen, etc. He also has a history of a brain injury so he easily gets confused regarding his medications, timing of administration, etc. Home health has been consulted and will begin services tomorrow. His son says his A1C was very high when he was in rehab as he was sedentary and on a regular diet. His last A1C on 11/06/21 was 9.3%. He was on high doses on lantus 70 units twice a day however he not has been receiving this since being home. His fasting readings have been 120-150. He is on a slidingscale for mealtime, which they have continued. He has been eating a very healthy diet since being home, mostly chicken and vegetables. His son has been leaving him a cooler when he goes to work with healthy food choices. He was on high doses of morphine per his son while he was at rehab and this was continued during his hospital admission for his chronic left hip pain. His son says this made him very groggy and he would often fall asleep during activities such as getting his hair cut. Since being home he has not taken any morphine. His pain is tolerable if he is stationary, it increases with transfers. They have tramadol at home which they plan to use as needed. Jeff does not feel at this time he needs scheduled pain medicine. Jeff has two concerns today. First his ears feel plugged and they pop. He has decreased hearing. No ear pain. Second he has a sore on his left heel. He believes he cut his heel using his shoe horn. His son has been covering the area with a bandage and trying to offload pressure using pillows. Patient Active Problem List Diagnosis ??? Late effect of intracranial injury (HCC) ??? Craniopharyngioma (HCC-CMS) ([facility]) ??? Memory loss due to medical condition ??? Hypothyroidism ??? Osteoarthritis of left hip ??? Acute osteomyelitis of phalanx of foot (HCC-CMS) ([facility]) ??? Type 2 diabetes mellitus with diabetic polyneuropathy, with long-term current use of insulin (HCC-CMS) ([facility]) ??? Hyperplastic polyp of descending colon ??? Acute osteomyelitis of right ankle or foot (HCC-CMS) ([facility]) ??? Deep vein thrombosis (DVT) of proximal vein of left lower extremity, unspecified chronicity (HCC-CMS) ([facility]) ??? Type 2 diabetes mellitus without complication, with long-term current use of insulin (HCC-CMS) ([facility]) ??? 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 (HCC-CMS) (HCC) Past Medical History: Diagnosis Date ??? Arthritis ??? Back pain ??? Diabetes mellitus (HCC) ??? Hypothyroidism ??? Wears glasses Past Surgical History: Procedure Laterality Date ??? BRAIN SURGERY s/p tumor ??? EYE SURGERY ??? FOOT SURGERY Right 03/23/2016 Right partial 2nd toe amputation ??? FOOT SURGERY Right 10/05/2019 I&D, amputation 2nd & 3rd James calvillo Family History Problem Relation Age of Onset ??? Stroke Mother 71 ??? Cancer Father 65 lung cancer ??? Colon Cancer Neg Hx Social Social History Tobacco Use ??? Smoking status: Never Smoker ??? Smokeless tobacco: Former User Types: Chew Vaping Use ??? Vaping Use: Never used Substance Use Topics ??? Alcohol use: No ??? Drug use: No Current Outpatient Medications on File Prior to Visit Medication Sig Dispense Refill ??? acetaminophen (TYLENOL) 500 mg tablet Take 2 Tablets by mouth every 6 hours. 240 Tablet 3 ??? ascorbic acid, vitamin C, (VITAMIN C) 500 mg tablet Take 1 Tablet by mouth daily. 30 Tablet 2 ??? bisacodyL (DULCOLAX) [address] 10 mg rectally as needed for Constipation. ??? blood glucose meter (FREESTYLE FREEDOM LITE) Test FS BID. 1 Each 0 ??? cholecalciferol, Vitamin D3, 1,000 unit tablet Take 2 Tabs by mouth at bedtime. ??? diclofenac sodium gel Apply 4 g topically 4 times daily. 500 g 3 ??? Dimethicone-Zinc Oxide 20-25 % spray,non-aerosol Apply topically as needed for Other (Wound Care-buttocks). 128 g 2 ??? FREESTYLE FREEDOM LITE Use as directed as needed (glucose monitoring). 1 Each 0 ??? insulin aspart U-100 (NOVOLOG FLEXPEN) 100 unit/mL (3 mL) injectable pen Inject 6 Units into the skin 3 times daily with meals. 5.4 mL 3 ??? lancets Test BID. 100 Each 1 ??? levothyroxine (SYNTHROID) 112 mcg tablet Take 1 Tab by mouth daily. 90 Tab 3 ??? lidocaine 5 % (LIDODERM) 5 % patch Apply to Left hip 30 Each 3 ??? methocarbamoL (ROBAXIN) 750 mg tablet Take 1 Tablet by mouth 4 times daily. 120 Tablet 3 ??? polyethylene glycol 3350 (MIRALAX) 17 gram packet Take 34 g by mouth daily. 30 Each 1 ??? senna (SENOKOT) 8.6 mg tablet Take 2 Tablets by mouth 2 times daily. 120 Tablet 1 ??? zinc oxide (DESITIN) 40 % paste paste Apply to buttocks erythema 454 g 0 No current facility-administered medications on file prior to visit. No Known Allergies Review of Systems Constitutional: Positive for malaise/fatigue. HENT: Positive for hearing loss. Musculoskeletal: Positive for joint pain. Skin: Left heel wound Neurological: Positive for tingling and sensory change. - See HPI Objective: BP 128/78 Pulse 97 SpO2 97% Physical Exam Constitutional: General: He is not in acute distress. Appearance: He is well-developed and well-nourished. HENT: Comments: Bilateral cerumen impaction Skin: Comments: Abrasion of left heel. No surrounding erythema, no drainage. Assessment: Diabetes Chronic left hip pain Bilateral cerumen impaction Left heel wound Plan: Jeff was seen today for follow-up. Diagnoses and all orders for this visit: History of brain tumor - [facility] CONS/FOLLOW UP [facility]ITY [facility] TEAM; Future Type 2 diabetes mellitus without complication, with long-term current use of insulin ([facility]) ([facility]) - [facility] CONS/FOLLOW UP COMMUNITY HEALTH TEAM; Future Chronic left hip pain Bilateral hearing loss due to cerumen impaction Open wound of left heel, initial encounter Other orders - sertraline (ZOLOFT) 50 mg tablet; Take 1/2 tablet daily x 1 week then increase to a full tablet daily - gabapentin (NEURONTIN) 300 mg capsule; Take one capsule HS x 3 days, then increase to BID x 3 days, then TID - pantoprazole (PROTONIX) 40 mg tablet; Take 1 Tablet by mouth 2 times daily. - atorvastatin (LIPITOR) 20 mg tablet; Take 1 Tablet by mouth daily. - apixaban (ELIQUIS) 5 mg tablet; Take 1 Tablet by mouth 2 times daily. - blood glucose test strips; 1 Strip by misc (non-drug; combo route) route 4 times daily. One touchverio flex - insulin glargine (LANTUS SOLOSTAR/SEMGLEE) 100 unit/mL (3 mL) injection pen; Inject 20 Units intothe skin at bedtime. Diabetes- A1C is high at 9.3% however this is improved as it was up to 12% He was on high doses of BID lantus at rehab as glucose was high (likely due to diet). He has not taken lantus since being home, fasting glucose has been running 120-150. Restart lantus at 20 units HS (prior to rehab was on 30 units HS) Continue novolog with sliding scale and metformin Chronic left hip pain: Tapered off of morphine since being home and is doing well Currently only using diclofenac gel however also has prn tramadol Bilateral cerumen impaction: Irrigation performed today, immediate improvement in hearing Left heel wound: No evidence of infection Son is aware he needs to monitor this often and we reviewed s/s of infection Mepilex placed, they will continue leg elevation to offload pressure Visiting nurses will also be starting tomorrow so can assess and care for wound Referral placed to T for social service worker He has an appointment next week with Dr. Batres for further follow up Carmelita Hogue APRN documented in this encounter Plan of Treatment Not on file documented as of this encounter Visit Diagnoses Diagnosis History of brain tumor- Primary Personal history of other disorders of nervous system and sense organs Type 2 diabetes mellitus without complication, with long-term current use of insulin ([facility]) Chronic left hip pain Pain in joint, pelvic region and thigh Bilateral hearing loss due to cerumen impaction Open wound of left heel, initial encounter documented in this encounter Discontinued Medications Medication Sig Discontinue Reason Start Date End Da te morphine (MS CONTIN) 15 mg CR tablet Take 1 Tablet by mouth daily with breakfast. Daily Max: 15 mg 01/21/2021 11/18/2021 morphine (MS CONTIN) 30 mg CR tablet Take 1 Tablet by mouth 2 times daily with lunch and dinner. Daily Max: 60 mg 01/21/2021 11/18/2021 morphine (MS IR) 15 mg tablet Take 1 Tablet by mouth every 4 hours as needed for Pain. Daily Max: 90 mg 01/21/2021 11/18/2021 TAMSulosin (FLOMAX) 0.4 mg capsule Take 1 capsule by mouth daily. 01/21/2021 11/18/2021 blood glucose (FREESTYLE TEST) test strips 1 Strip by misc (non-drug; combo route) route 2 times daily 05/11/2014 11/18/2021 atorvastatin (LIPITOR) 20 mg tablet Take 1 Tab by mouth daily. Reorder 04/22/2020 11/18/2021 apixaban (ELIQUIS) 5 mg tablet Take 1 Tablet by mouth 2 times daily. Reorder 11/04/2020 11/18/2021 gabapentin (NEURONTIN) 300 mg capsule Take 1 capsule by mouth 3 times daily. Reorder 01/21/2021 11/18/2021 sertraline (ZOLOFT) 50 mg tablet Take 50 mg by mouth daily. Reorder 11/18/2021 insulin aspart U-100 (NOVOLOG FLEXPEN) 100 unit/mL (3 mL) injectable pen Sliding Scale Insulin Correction: BG ??66-140 give 0 units; BG 141-180 give 3 units; BG 181-210 give 4 units; BG 211-250 give??6 units; BG 251-299 give 8 units; BG > 299 give 12 units. Critical values are FSBG < 50 mg/dL or > 500 mg/dL 01/21/2021 11/18/2021 insulin aspart U-100 (NOVOLOG FLEXPEN) 100 unit/mL (3 mL) injectable pen If FSBG 0-250-no correction, FSBG 251-500 give 5 units and recheck at midnight, FSBG >500 call provider 01/21/2021 11/18/2021 insulin glargine (LANTUS SOLOSTAR/SEMGLEE) 100 unit/mL (3 mL) injection pen Inject 30 Units into the skin at bedtime. Reorder 01/21/2021 11/18/2021 documented as of this encounter Care Teams Fence Builder Relationship Specialty Start Date End Date Jason Batres MD [address] [place] [id number] PCP - General 07/27/11 12/31/23 documented as of this encounter
--- OUTSIDE RECORDS SUMMARY | 2024-02-28 16:42 | XMS_ITS | Encounter Summary ---
Author Organization [facility] Address [address] [place] [address] Care Team Providers Care Coal Drier Operator Name Role Phone Jason Batres MD Primary Care Provi margarita Edmundo De La O RN Unavailable Unavailable Encounter Details Date Type Department Care Team (Late st Contact Info) Description 04/18/2022 Patient Outreach Jason Batres MD, PC [address] [place], [place] [address] Edmundo De La O RN Social History [...] * Edmundo De La O RN - 04/18/2022 1318 EST Hospital Discharge Follow Up: Admitted 11/20/21- 04/17/22 Reason for admission: Falls and failure to thrive at home. Symptoms improving? Yes. Spoke to Jeff's son Js who is staying with Jeff at the [facility] in [place]. Js says Jeff is moving around with his walker and doing well with mobility. Js says getting upand down are difficult for Jeff, but if Js encourages him, Jeff can be more mobile. Js reports that Jeff is testing his blood glucose 3 times daily and taking his insulin: Novolog 18 units with meals, and Lantus 55 units at bed time. Blood glucose running 119-124 since discharge. Js is aware that Jeff is on service with [facility], but doesn't know when that starts. There is a kitchen in the hotel and Js will make sure that Jeff has groceries. Jeff can also access a breakfast of eggs and toast from the hotel. Js says they have finances to pay for 2-3 months at the [facility] if needed while they look into assisted living for Jeff. Discharge instructions available? Yes. There is a medication list included. Medications Reviewed/prescriptions filled? Yes. Vik noel is a nurse and she has helped to set up a weekly pill box with Jeff's current medications. Js did not know the details of the medications other than insulin. Vanessajohnathan is doubtful that Jeff could manage his medications independently and heasked about bubble packs. This RN will get paperwork started with [facility] for bubble packs. Js says that Jeff has a credit or a debit card that he can put on file with [facility].. Support at home? Yes. Jeff's son Js will stay with [facility] until more supportis in place. Home health service/issues? Yes. Home Health is scheduled to begin today or tomorrow. Questions about discharge instructions? Js requests speaking with Odette [facility] to discuss assisted living for Jeff. Follow-up visit scheduled? Not yet. Jeff's son Js is personnel records clerk. Jeff's phone numbers in the Epic chart are outdated. Jeff says they will work on getting a phone for Jeff in the next few days. Education/Plan: Advised Js that this RN will confirm service for [facility], and will get paperwork for bubble packs started. Advised Js to call with questions or concerns. EDMUNDO DE LA O RN 04/18/2022 documented in this encounter Plan of Treatment Not on file documented as of this encounter Visit Diagnoses Not on filedocumented in this encounter Care Teams Coal Drier Operator Relationship Specialty Start Date End Date Jason Batres MD [address] [place] [id number] PCP - General 07/27/11 12/31/23 Edmundo De La O RN Care Manager 04/18/22 08/13/23 documented as of this encounter
--- OUTSIDE RECORDS SUMMARY | 2024-02-28 16:42 | XMS_ITS | Encounter Summary ---
Author Organization [facility] Address [address] [place] [address] Care Team Providers Care Instrument Worker Name Role Phone Jason Batres MD Primary Care Provi margarita Reason for Visit * Reason Onset Date Comments Pre-op Exam 02/13/2022 Encounter Details Date Type Department Care Team (Late st Contact Info) Description 02/13/2022 Prep for Procedure [facility] Total Joint Program - [address] [address] Sachin Burroughs MD MSc [address] [phone] Social History Tobacco Use Types Packs/Day Years [...] on filedocumented in this encounter Care Teams Instrument Worker Relationship Specialty Start Date End Date Jason Batres MD [address] [place] [address] PCP - General 07/27/11 12/31/23 documented as of this encounter
--- OUTSIDE RECORDS SUMMARY | 2024-02-28 16:42 | XMS_ITS | Encounter Summary ---
Author Organization [facility] Address [address] [place] [address] Care Team Providers Care Skate Shop Attendant Name Role Phone Jason Batres MD Primary Care Provi margarita Alexus De La O RN Unavailable Unavailable Reason for Visit * Reason Onset Date Comments Medications Refill 05/11/2022 Encounter Details Date Type Department Care Team (Late st Contact Info) Description 05/11/2022 Refill Terry Batres MD [address] [address] Jason Batres MD [address] [place] [phone] Medications Refill Social History Tobacco Use [...] Pain. Daily Max: 10 mg 10 Tablet 05/11/2022 3 TAMSulosin (FLOMAX) 0.4 mg capsule Take 1 Capsule by mouth daily. 30 Capsule 2 05/11/2022 3 sertraline (ZOLOFT) 50 mg tablet Take 1 Tablet by mouth daily. 30 Tablet 2 05/11/2022 3 pantoprazole (PROTONIX) 40 mg tablet Take 1 Tablet by mouth daily before breakfast. 30 Tablet 2 05/11/2022 3 metFORMIN (GLUCOPHAGE) 500 mg tablet Take 2 Tablets by mouth 2 times daily with breakfast and dinner. 120 Tablet 2 05/11/2022 3 levothyroxine (SYNTHROID) 112 mcg tablet Take 1 Tablet by mouth daily. 30 Tablet 2 05/11/2022 3 gabapentin (NEURONTIN) 300 mg capsule Take 1 Capsule by mouth 3 times daily. 90 Capsule 2 05/11/2022 3 atorvastatin (LIPITOR) 20 mg tablet Take 1 Tablet by mouth daily. 30 Tablet 2 05/11/2022 3 apixaban (ELIQUIS) 5 mg tablet Take 1 Tablet by mouth 2 times daily. 60 Tablet 2 05/11/2022 3 documented in this encounter Miscellaneous Notes * Telephone Encounter - Keyla Rhodes - 05/11/2022 1354 EST Also needs: Contour Next microlet colored lancets Test strips B-D ultrafine pen needles short 8 mm x 31 g Son hasn't filled out info yet to get scripts at [facility] pharmacy so needs these all sent to [facility] I don't know if you want to put a few refills on them in case he doesn't get the forms done before he needs more meds. documented in this encounter Plan of Treatment Not on file documented as of this encounter Visit Diagnoses Diagnosis Type 2 diabetes mellitus with other circulatory complication, with long-term current use of insulin ([facility])- Primary documented in this encounter Discontinued Medications Medication Sig Discontinue Reason Start Date End Da te atorvastatin (LIPITOR) 20 mg tablet Take 1 Tablet by mouth daily. Reorder 04/17/2022 05/11/2022 apixaban (ELIQUIS) 5 mg tablet Take 1 Tablet by mouth 2 times daily. Reorder 04/17/2022 05/11/2022 gabapentin (NEURONTIN) 300 mg capsule Take 1 Capsule by mouth 3 times daily. Reorder 04/17/2022 05/11/2022 levothyroxine (SYNTHROID) 112 mcg tablet Take 1 Tablet by mouth daily. Reorder 04/17/2022 05/11/2022 metFORMIN (GLUCOPHAGE) 500 mg tablet Take 2 Tablets by mouth 2 times daily with breakfast and dinner. Reorder 04/17/2022 05/11/2022 sertraline (ZOLOFT) 50 mg tablet Take 1 Tablet by mouth daily. Reorder 04/17/2022 05/11/2022 TAMSulosin (FLOMAX) 0.4 mg capsule Take 1 Capsule by mouth daily. Reorder 04/17/2022 05/11/2022 pantoprazole (PROTONIX) 40 mg tablet Take 1 Tablet by mouth daily before breakfast. Reorder 04/17/2022 05/11/2022 oxyCODONE (ROXICODONE) 5 mg immediate release tablet Take 1 Tablet by mouth 2 times daily as needed for Pain. Daily Max: 10 mg Reorder 04/17/2022 05/11/2022 documented as of this encounter Orders Equipment Count Last Ordered Date First Orde red Date BLOOD GLUCOSE TEST STRIPS 1 05/11/2022 GENERIC DME ORDER 1 05/11/2022 LANCETS 1 05/11/2022 documented in this encounter Care Teams Skate Shop Attendant Relationship Specialty Start Date End Date Jason Batres MD [address] [place] [address] PCP - General 07/27/11 12/31/23 Alexus De La O, service captain 04/18/22 08/13/23 documented as of this encounter
--- OUTSIDE RECORDS SUMMARY | 2024-02-28 16:42 | XMS_ITS | Encounter Summary ---
Author Organization [facility] Address [address] [place] [address] Care Team Providers Care Energy Manager Name Role Phone Jason Batres MD Primary Care Provi margarita Alexus De La O RN Unavailable Unavailable Encounter Details Date Type Department Care Team (Latest Contact Info) Description 05/02/2022 15:45 EST - 05/02/2022 23:59 EST Hospital Encounter [address] [facility] [place], [place] [id number] Left hip pain Discharge Disposition: Home or [...] by mouth at bedtime. 30 Tablet 04/17/2022 FREESTYLE FREEDOM LITE Use as directed as needed (glucose monitoring). 1 Each 11/14/2017 magnesium oxide (MAG-OX) 400 mg (241.3 mg magnesium) tablet Take 1 Tablet by mouth daily. 30 Tablet 04/17/2022 apixaban (ELIQUIS) 5 mg tablet Take 1 Tablet by mouth 2 times daily. 60 Tablet 04/17/2022 3 atorvastatin (LIPITOR) 20 mg tablet Take 1 Tablet by mouth daily. 30 Tablet 04/17/2022 3 gabapentin (NEURONTIN) 300 mg capsule Take 1 Capsule by mouth 3 times daily. 90 Capsule 04/17/2022 3 insulin aspart U-100 (NOVOLOG FLEXPEN) 100 unit/mL (3 mL) injectable pen Inject 18 Units into the skin 3 times daily with meals. 15 mL 04/17/2022 3 insulin glargine (LANTUS SOLOSTAR/SEMGLEE) 100 unit/mL (3 mL) injection pen Inject 55 Units into the skin at bedtime. 15 mL 04/17/2022 3 lancets Test BID. 100 Each 1 11/11/2013 3 levothyroxine (SYNTHROID) 112 mcg tablet Take 1 Tablet by mouth daily. 30 Tablet 04/17/2022 3 metFORMIN (GLUCOPHAGE) 500 mg tablet Take 2 Tablets by mouth 2 times daily with breakfast and dinner. 60 Tablet 04/17/2022 3 methocarbamoL (ROBAXIN) 500 mg tablet Take 1 Tablet by mouth every 8 hours as needed for Pain or Muscle Spasms. 42 Tablet 04/17/2022 3 oxyCODONE (ROXICODONE) 5 mg immediate release tablet Take 1 Tablet by mouth 2 times daily as needed for Pain. Daily Max: 10 mg 10 Tablet 04/17/2022 3 pantoprazole (PROTONIX) 40 mg tablet Take 1 Tablet by mouth daily before breakfast. 30 Tablet 04/17/2022 3 sertraline (ZOLOFT) 50 mg tablet Take 1 Tablet by mouth daily. 30 Tablet 04/17/2022 3 TAMSulosin (FLOMAX) 0.4 mg capsule Take 1 Capsule by mouth daily. 30 Capsule 04/17/2022 3 documented as of this encounter Discharge Disposition Disposition Code Departure Means Destination Home or Self Care documented in this encounter Plan of Treatment Not on file documented as of this encounter Procedures Procedure Name Priority Date/Time Associated Diagnosis Comments XR HIP RIGHT 1 VIEW Routine 05/02/2022 1 6:33 EST Left hip pain XR HIP LEFT 2-3 VIEWS, OPTIONAL PELVIS Routine 05/02/2022 16:33 EST Left hip pain documented in this encounter Results * XR HIP RIGHT 1 VIEW (05/02/2022 16:33 EST) Anatomical Region Laterality Modality Lower Extremities Right Computed Radio graphy 05/03/2022 12:5 1 EST Impressions 05/03/2022 12:51 EST FINDINGS / IMPRESSION: Frontal views of both hips were obtained as an AP ortho pelvis in addition to a crosstable lateral view of the left hip. Redemonstrated are postsurgical changes from a total left hip arthroplasty, the femoral and acetabular components of the prosthesis appear in stable position, without evidence of interval failure or loosening, the cerclage wire in the proximal femur also appears intact. No periprosthetic fracture is identified either. Assessment of the contralateral right hip shows moderate degenerative changes, no evidence of fracture or avascular necrosis on the right. There is osteopenia. Soft tissues are grossly unremarkable. Narrative 05/03/2022 12:51 EST EXAM/TECHNIQUE: XR HIP LEFT 2-3 VIEWS, OPTIONAL PELVIS, XR HIP RIGHT 1 VIEW ??05/02/2022 3:45 PM HISTORY: ?? Left ELVIN COMPARISON: Radiographs dated March 09, 2022; February 13, 2022 and January 12, 2022. Procedure Note Jr Cee MD - 05/03/2022 EXAM/TECHNIQUE: XR HIP LEFT 2-3 VIEWS, OPTIONAL PELVIS, XR HIP RIGHT 1 VIEW :45 PM HISTORY: Left ELVIN COMPARISON: Radiographs dated March 09, 2022; February 13, 2022 and January. IMPRESSION FINDINGS / IMPRESSION: Frontal views of both hips were obtained as an AP ortho pelvis in additionto a crosstable lateral view of the left hip. Redemonstrated arepostsurgical changes from a total left hip arthroplasty, the femoral andacetabular components of the prosthesis appear in stable position, withoutevidence of interval failure or loosening, the cerclage wire in theproximal femur also appears intact. No periprosthetic fracture isidentified either. Assessment of the contralateral right hip showsmoderate degenerative changes, no evidence of fracture or avascularnecrosis on the right. There is osteopenia. Soft tissues are grosslyunremarkable. Sachin Burroughs MD MSc [facility] IMG DIAGNOSTIC I MAGING ORDERABLES Final Result * XR HIP LEFT 2-3 VIEWS, OPTIONAL PELVIS (05/02/2022 16:33 EST) Anatomical Region Laterality Modality Lower Extremities Left Computed Radio graphy 05/03/2022 12:5 1 EST Impressions 05/03/2022 12:51 EST FINDINGS / IMPRESSION: Frontal views of both hips were obtained as an AP ortho pelvis in addition to a crosstable lateral view of the left hip. Redemonstrated are postsurgical changes from a total left hip arthroplasty, the femoral and acetabular components of the prosthesis appear in stable position, without evidence of interval failure or loosening, the cerclage wire in the proximal femur also appears intact. No periprosthetic fracture is identified either. Assessment of the contralateral right hip shows moderate degenerative changes, no evidence of fracture or avascular necrosis on the right. There is osteopenia. Soft tissues are grossly unremarkable. Narrative 05/03/2022 12:51 EST EXAM/TECHNIQUE: XR HIP LEFT 2-3 VIEWS, OPTIONAL PELVIS, XR HIP RIGHT 1 VIEW ??05/02/2022 3:45 PM HISTORY: ?? Left ELVIN COMPARISON: Radiographs dated March 09, 2022; February 13, 2022 and January 12, 2022. Procedure Note Jr Cee MD - 05/03/2022 EXAM/TECHNIQUE: XR HIP LEFT 2-3 VIEWS, OPTIONAL PELVIS, XR HIP RIGHT 1 VIEW 33:45 PM HISTORY: Left ELVIN COMPARISON: Radiographs dated March 09, 2022; February 13, 2022 and January. IMPRESSION FINDINGS / IMPRESSION: Frontal views of both hips were obtained as an AP ortho pelvis in additionto a crosstable lateral view of the left hip. Redemonstrated arepostsurgical changes from a total left hip arthroplasty, the femoral andacetabular components of the prosthesis appear in stable position, withoutevidence of interval failure or loosening, the cerclage wire in theproximal femur also appears intact. No periprosthetic fracture isidentified either. Assessment of the contralateral right hip showsmoderate degenerative changes, no evidence of fracture or avascularnecrosis on the right. There is osteopenia. Soft tissues are grosslyunremarkable. us Sachin Burroughs MD MSc [facility]ST[facility] I MAGING ORDERABLES Final Result documented in this encounter Visit Diagnoses Diagnosis Left hip pain Pain in joint, pelvic region and thigh documented in this encounter Care Teams Energy Manager Relationship Specialty Start Date End Date Jason Batres MD [address] [place] [address] PCP - General 07/27/11 12/31/23 Alexus De La O, painter aircraft 04/18/22 08/13/23 documented as of this encounter
--- OUTSIDE RECORDS SUMMARY | 2024-02-28 16:42 | XMS_ITS | Encounter Summary ---
Author Organization [facility] Address [address] [place] [address] Care Team Providers Care Senior Branch Manager Name Role Phone Jason Batres MD Primary Care Provi margarita Reason for Visit * Reason Onset Date Comments Home Health 11/21/2021 Encounter Details Date Type Department Care Team (Late st Contact Info) Description 11/21/2021 Telephone Jason Batres MD, [facility] [address], [place] [phone] Jason Batres MD [address] [place] [phone] Home Health Social History Tobacco Use [...] suspected to have Coronavirus/COVID-19? No / Unsure 11/19/2021 18:21 EDT documented as of this encounter Functional [...] Telephone Encounter - Jason Batres MD - 11/21/2021 1358 EDT Reviewed and agree- this is a tough situation and I hope a suitable discharge plan is made Jason Batres MD * Telephone Encounter - Elena Caitlyn - 11/21/2021 1350 EDT Nguyen from [facility] LM to report that pt was sent back to the ED (he went to [facility] this time) on Sunday as he does not have appropriate care to meet his needs in the home. Nguyen hopes that [facility] will be able to find pt a facility that can provide the level of care pt requires. CAITLYN PARKER MA documented in this encounter Plan of Treatment Not on file documented as of this encounter Visit Diagnoses Not on filedocumented in this encounter Care Teams Senior Branch Manager Relationship Specialty Start Date End Date Jason Batres MD [address] [place] [address] PCP - General 07/27/11 12/31/23 documented as of this encounter
--- OUTSIDE RECORDS SUMMARY | 2024-02-28 16:42 | XMS_ITS | Encounter Summary ---
Author Organization [facility] Address [address] [place] [address] Care Team Providers Care Doughnut Icer Machine Name Role Phone Jason Batres MD Primary Care Provi margarita Alexus De La O RN Unavailable Unavailable Reason for Visit * Reason Comments Foot Problem Foot Problem * Consult (Routine/Next Available) - Receiving Office to Obtain Authorization Specialty Diagnoses / Procedures Referred By Eddie crocker Referred To Contact Podiatry Diagnoses Pressure injury of left foot, stage 3 ([facility]) Filipe Doty MD Phone: tel: fax: [facility] [address] [place] [address] Phone: tel: fax: Referral ID Status Reason Start Date Expiration Date Visits Requested Visits Authorized [id number] Receiving Office to Obtain Authorization Specialty Services Required 3 1 1 Encounter Details Date Type Department Care Team (Late st Contact Info) Description 05/22/2022 14:30 EDT Office Visit [facility] - [place] [address] Elie Betancourt DPM [address] [place] [phone] Neuropathic diabetic ulcer of foot ([facility]) (Primary Dx) Social History Tobacco Use Types [...] documented in this encounter Progress Notes * Herlinda Navarro LPN - 05/22/2022 1430 EDT An affiliate message was sent to [facility] with wound care instructions. HERLINDA NAVARRO LPN * Elie Betancourt DPM - 05/22/2022 1430 EDT HISTORY OF PRESENT ILLNESS: Jeff Scott is a 61 y.o. male who presents today for evaluation of a pressure sore on his left heel. Patient has also developed a sore on his left fifth toe. Patient is present today with his brother. He is currently in an extended living apartment. He is using a walker to assist with its ambulation. Patient initially was treated in the emergency department. Patient has a history of longstanding diabetic foot related problems. 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 He is also status post left total hip replacement. The patient's remaining past medical history, medications, allergies, past surgical, social and family history were reviewed and noted in the electronic health record. PHYSICAL EXAM: Constitutional Exam: The patient is in no acute distress Psychological Exam: The patient is awake, alert, oriented X3 Vascular Exam: He has nonpalpable pedal pulses. Pitting edema is noted in the left lower extremity. Neurologic Exam: Sensation is diminished consistent with diabetic peripheral neuropathy. Muscle strength testing was not performed today. Dermatologic Exam: A full-thickness ulceration is noted on the posterior plantar junction of the left heel measuring 3.5 x 4.0 cm. The primary portion of the ulcer is a stable dry necrotic eschar which is centrally located. There is healthier granulation tissue around the perimeter of the wound with epithelialization of skin edges. There is no active drainage and no signs of infection. A stable appearing eschar is noted over the dorsal lateral aspect of the left fifth toe. Orthopedic Exam: Deferred IMPRESSION: Encounter Diagnosis Name Primary? Neuropathic diabetic ulcer of foot (HCC) Yes TREATMENT PLAN: The importance of relieving pressure from his left heel was emphasized. We did recommend the use of a heel protector boot which he may purchase online. Home health will also be contacted with regards to best dressing choices. At this point, I would use a dry gauze bandage with Cem ba ndage for compression up to the knee. Plan for follow-up in 1 month. I spent a total of 20 minutes on the date of this encounter [...] uncontrolled documented in this encounter Care Teams Doughnut Icer Machine Relationship Specialty Start Date End Date Jason Batres MD [address] [place] [id number] PCP - General 07/27/11 12/31/23 Alexus De La O, playground official 04/18/22 08/13/23 documented as of this encounter
--- OUTSIDE RECORDS SUMMARY | 2024-02-28 16:42 | XMS_ITS | Encounter Summary ---
Author Organization [facility] Address [address] [place] [address] Care Team Providers Care Playground Director Name Role Phone Jason Batres MD Primary Care Provi margarita Alexus De La O RN Unavailable Unavailable Reason for Referral * Consult (Routine/Next Available) - Receiving Office to Obtain Authorization Specialty Diagnoses / Procedures Referred By Eddie crocker Referred To Contact Podiatry Diagnoses Pressure injury of left foot, stage 3 ([facility]) Filipe Doty MD Phone: tel: fax: [facility] [place] [address] Phone: tel: fax: Referral ID Status Reason Start Date Expiration Date Visits Requested Visits Authorized [id number] Receiving Office to Obtain Authorization Specialty Services Required 3 1 1 Question Answer Reason for Request: left heel ulcer Reason for Visit * Reason Comments Foot Injury Ambulatory to triage with walker, reports large wound to bottom of left foot with a history of osteomylitis with a right BKA. Pt reports approx on week of seeing blood in his sock. Denies fevers, chills, NVD VSS Encounter Details Date Type Department Care Team (Late st Contact Info) Description 05/14/2022 15:31 EDT - 05/14/2022 23:30 EDT Emergency [facility] Emergency Department - [address] [address] Filipe Doty MD [address] [facility], [facility], [address] [place] [address] Pressure injury of left foot, stage 3 (HCC-CMS) (Primary Dx); Pressure injury of skin of left heel, unspecified injury stage Discharge Disposition: Home or Self Care Social [...] 15:31 EDT documented as of this encounter Last Filed Vital Signs Vital Sign Reading Time Taken Comments Blood Pressure 133/77 05/14/2022 2300 EDT Pulse 77 05/14/2022 2300 EDT Temperature 36.7 ??C (98 ??F) 05/14/2022 1926 EDT Respiratory Rate 17 05/14/2022 2300 EDT Oxygen Saturation 99% 05/14/2022 2300 EDT Inhaled Oxygen Concentration - - Weight 127 kg (280 lb) 05/14/2022 1530 EDT Height 188 cm (6' 2) 05/14/2022 1530 EDT Body Mass Index 35.95 05/14/2022 1530 EDT documented in this encounter [...] Chelsea Nair RN documented in this encounter Discharge Instructions * Discharge Instructions* Filipe Doty MD - 05/14/2022 22:40 EDT Please avoid weightbearing on heel. Use the walking shoe as needed. Dry dressing changes. Follow-up with podiatry within 1 week. Return to the Emergency Department (ED) if your condition worsens, does not improve as expected, orother new concerns arise. Specifically return if you have new or uncontrolled pain, high fever, difficulty breathing, vomiting and unable to keep down fluids or medications, or any other concerns. documented in this encounter Medications at Time [...] times daily. 60 Tablet 2 05/11/2022 3 atorvastatin (LIPITOR) 20 mg tablet Take 1 Tablet by mouth daily. 30 Tablet 2 05/11/2022 3 cephalexin (KEFLEX) 250 mg capsule Take 2 Capsules by mouth 4 times daily for 7 days. 56 Capsule 05/14/2022 3 gabapentin (NEURONTIN) 300 mg capsule Take 1 Capsule by mouth 3 times daily. 90 Capsule 2 05/11/2022 3 insulin aspart U-100 (NOVOLOG FLEXPEN) 100 [...] mouth daily. 30 Tablet 2 05/11/2022 3 metFORMIN (GLUCOPHAGE) 500 mg tablet Take 2 Tablets by mouth 2 times daily with breakfast and dinner. 120 Tablet 2 05/11/2022 3 methocarbamoL (ROBAXIN) 500 mg tablet Take 1 Tablet by mouth every 8 hours as needed for Pain or Muscle Spasms. 42 Tablet 04/17/2022 3 oxyCODONE (ROXICODONE) 5 mg immediate release tablet Take 1 Tablet by mouth 2 times daily as needed for Pain. Daily Max: 10 mg 10 Tablet 05/11/2022 3 pantoprazole (PROTONIX) 40 mg tablet Take 1 Tablet by mouth daily before breakfast. 30 Tablet 2 05/11/2022 3 sertraline (ZOLOFT) 50 mg tablet Take 1 Tablet by mouth daily. 30 Tablet 2 05/11/2022 3 TAMSulosin (FLOMAX) 0.4 mg capsule Take 1 Capsule by mouth daily. 30 Capsule 2 05/11/2022 3 documented as of this encounter Ordered Prescriptions Prescription Sig Dispense Quantity Refills Last Filled Start Date End Date cephalexin (KEFLEX) 250 mg capsule Take 2 Capsules by mouth 4 times daily for 7 days. 56 Capsule 05/14/2022 3 documented in this encounter Discharge Disposition Disposition Code Departure Means Destination Home or Self Snf documented in this encounter Consult Notes * Won Reveles MD - 05/14/20222123 EDT Images from the original note were not included. Orthopaedic Surgery Consultation Consultation requested by: Filipe Doty MD for: Left calcaneal ulcer HPI: Jeff Scott is a 61 y.o. 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 Burroughs on 02/13/2022 who presented to [facility] for evaluation of a left calcaneal wound that was identified earlier this morning. Orthopedics was consulted for evaluation of this wound. Patient has son and daughter at bedside who assisted in providing formation contained within this HPI. Per patient and son, they noticed bleeding on the sock of the patient's left foot this morning, investigating the bed found additional serosanguineous type drainage on the sheets. Report that given patient's history of extensive right diabetic foot infections with ultimate osteomyelitis requiring transtibial potation, they presented to [facility] for concern that this could represent a new ulcer ofthe patient's left calcaneus. Patient reports that he has not been having any significant left heel pain, but does endorse that he has near total loss of pain sensation secondary to his diabetes. Reports he is uncertain as to howlong this ulcer has been present, feels it may be associated with elevating shoes and use of a shoehorn to help put his shoes on, stating that he has a hard time bending over and touching his toes. Denies any other ulceration; a small well healed ulcer is present along the lateral aspect of the fifth proximal phalanx, no purulence or evidence of active infection with patient describing the site as unchanged in appearance over time. For left calcaneal wound, patient denies having appreciated any active drainage. Denies any trauma to the site, no other traumas, open injuries, recent sickness or infections. For the patient's left hip, states that he has no hip pain and continues to be extremely happy postprocedure with no concerns at this time. Has continued to be able to ambulate pain-free with his left hip. Ambulatory status: Independent Past Medical History: Diagnosis Date ??? Anemia ??? Arthritis ??? Back pain ??? Diabetes mellitus (HCC) ??? Hypothyroidism ??? Wears glasses Past Surgical History: Procedure Laterality Date ??? BRAIN SURGERY s/p tumor ??? EYE SURGERY ??? FOOT SURGERY Right 03/23/2016 Right partial 2nd toe amputation ??? FOOT SURGERY Right 10/05/2019 I&D, amputation 2nd & 3rd James calvillo Prior to Admission medications Medication Sig Start Date End Date Taking? Authorizing Provider acetaminophen (TYLENOL) 500 mg tablet Take 2 Tablets by mouth every 6 hours. 04/17/22 Leslie Casper PA-C apixaban (ELIQUIS) 5 mg tablet Take 1 Tablet by mouth 2 times daily. 05/11/22 Jason Batres MD atorvastatin (LIPITOR) 20 mg tablet Take 1 Tablet by mouth daily. 05/11/22 Jason Batres MD bisacodyL (DULCOLAX) [address] 1 Suppository rectally as needed for Constipation. 04/17/22 Leslie Casper PA-C blood glucose (FREESTYLE TEST) test strips 1 Strip by misc (non-drug; combo route) route 3 times daily. 04/17/22 Leslie Casper PA-C blood glucose meter (FREESTYLE FREEDOM LITE) Test FS BID. 11/11/13 Jason Batres MD blood glucose test strips 1 Strip by misc (non-drug; combo route) route 4 times daily. One touch verio flex 04/17/22 Leslie Casper PA-C cholecalciferol, Vitamin D3, 50 mcg (2,000 unit) tablet Take 1 Tablet by mouth at bedtime. 04/17/22 Leslie Casper PA-C FREESTYLE FREEDOM LITE Use as directed as needed (glucose monitoring). 11/14/17 Yesi Marie, MICHELET gabapentin (NEURONTIN) 300 mg capsule Take 1 Capsule by mouth 3 times daily. 05/11/22 Jason Batres MD insulin aspart U-100 (NOVOLOG FLEXPEN) 100 unit/mL (3 mL) injectable pen Inject 18 Units into the skin 3 times daily with meals. 04/17/22 Leslie Casper PA-C insulin glargine (LANTUS SOLOSTAR/SEMGLEE) 100 unit/mL (3 mL) injection pen Inject 55 Units into the skin at bedtime. 04/17/22 Leslie Casper PA-C lancets Test BID. 11/11/13 Jason Batres MD levothyroxine (SYNTHROID) 112 mcg tablet Take 1 Tablet by mouth daily. 05/11/22 Jason Batres MD magnesium oxide (MAG-OX) 400 mg (241.3 mg magnesium) tablet Take 1 Tablet by mouth daily. 04/17/22 Leslie Casper PA-C metFORMIN (GLUCOPHAGE) 500 mg tablet Take 2 Tablets by mouth 2 times daily with breakfast and dinner. 05/11/22 Jason Batres MD methocarbamoL (ROBAXIN) 500 mg tablet Take 1 Tablet by mouth every 8 hours as needed for Pain or Muscle Spasms. 04/17/22 Leslie Casper PA-C oxyCODONE (ROXICODONE) 5 mg immediate release tablet Take 1 Tablet by mouth 2 times daily as neededfor Pain. Daily Max: 10 mg 05/11/22 Jason Batres MD pantoprazole (PROTONIX) 40 mg tablet Take 1 Tablet by mouth daily before breakfast. 05/11/22 Jason Batres MD sertraline (ZOLOFT) 50 mg tablet Take 1 Tablet by mouth daily. 05/11/22 Jason Batres MD TAMSulosin (FLOMAX) 0.4 mg capsule Take 1 Capsule by mouth daily. 05/11/22 Jason Batres MD No Known Allergies Family History Problem Relation Age of Onset ??? Stroke Mother 71 ??? Cancer Father 65 lung cancer ??? Colon Cancer Neg Hx Social History: Patient reports that he has never smoked. He has quit using smokeless tobacco. His smokeless tobacco use included chew. He reports that he does not drink alcohol and does not use drugs. Review of Systems: A 10-point review of systems was obtained and pertinent positives are included in the HPI. All others are negative. General Physical Exam: BP 133/77 Pulse 77 Temp 36.7 ??C (98 ??F) (Oral) Resp 17 Ht 188 cm (74) Wt (!) 127 kg (280 lb) SpO2 99% BMI 35.95 kg/m?? General: alert, awake, no apparent distress Respiratory: non labored breathing on room air CV: regular rate and rhythm via distal pulses Focused Musculoskeletal and Neurovascular Examination Left lower extremity: -Wound overlying the medial posterior aspect of the left calcaneus is imaged above. Hyperkeratotic scaling skin surrounding the wound, dry eschar throughout the majority of the center with 1 small area of white maceration. Exploration of the wound as described in procedure note; no purulence encountered, no depth to bone. - No tenderness to palpation of the forefoot, midfoot, hindfoot, ankle, leg, knee, thigh. No tenderness with straight leg raise or logrolling at the hip. - Sensation intact but subjectively diminished to light touch in sural, saphenous, superficial peroneal, deep peroneal, and tibial nerve distributions - 5/5 strength in tibialis anterior, gastroc soleus complex, extensor hallucis longus, flexor hallucis longus; 4/5 strength in quads, hamstrings, hip flexors - 1+ DP pulse, 2+ PT pulse Labs: WBC/Hgb/Hct/Plts: 7.42/11.2/35.2/218 (05/15 1603) Na/K/Cl/CO2: 139/4.9/104/22 (05/15 1603) BUN/Cr/glu/ALT/AST/amyl/lip: 16/0.82/130/--/--/--/-- (05/15 1603) Diagnostic Imaging: -AP, lateral, obliques of the left foot demonstrate no osseous erosions, minimal overlying soft tissue swelling without any evidence of discrete collection. Procedure: Obtained verbal consent. Risks, benefits, and alternatives discussed. Patient elected to proceed with exploration and debridement of left calcaneal wound. As patient is a sensate to pain, no analgesia was provided with frequent checks as to comfort during the procedure. The patient's left foot was sterilely prepared with chlorhexidine scrubs in standard fashion, prior to preparation of a sterile field. With stability maintained, the wound was gently explored with a cotton Q-tip and the rough wooden edge to assess for any depth or obvious pockets ofpurulence. A 10 blade scalpel was used to remove hyperkeratotic skin along the margins of the woundto explore for any undermining. There are total exploration, no evidence of infection was encountered, no focal collections, no depth past subcutaneous tissue, no purulence. After reassuring exploration, the wound was again flushed before being dressed with 4 x 4 gauze andthen wrapped in Kerlix. An area of approximately 1 cm x 2 cm was ultimately debrided. Assessment: Jeff Scott [id number] 1960 Jeff Scott is a 61 y.o. 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 Burroughs on 02/13/2022 who presented to [facility] for evaluation of a left calcaneal wound, with examination and imaging most consistent with pressure ulceration of the left calcaneus. Wound was carefullyand gently explored at bedside under sterile conditions to assess for any depth or evidence of infection, neither of which were appreciated. Given patient's reported history and overall appearance, an ticipate that this is a pressure injury that will best be managed with offloading shoes and carefuldressing changes; in the emergency department, patient's regular PT and OT Home health had nursing wound care added on to assist with management of this pressure injury and prevent any progression. Ex tensive education provided to patient as to the importance of offloading his heels as much as possible. Plan for follow-up with podiatry clinic at [facility]; patient was previously seen by Dr. Gonzales, and would benefit from continuing foot care given history of diabetes and associated foot complications. Plan: 1. No orthopaedic operative intervention at this time. 2. Weightbearing as tolerated to the left lower extremity with heel offloading and Darco shoe 3. Return precautions/indications provided including new onset numbness, tingling, weakness, pain out of proportion of the injury. 4. Follow-up in orthopedics podiatry clinic. We will place referral. 5. Aggressive offloading of heel 6. Pain management per emergency department provider Discussed with: Dr. Susana reveles md orthopaedic surgery [email or web address] secure messenger preferred, or pager: [phone] 05/15/22 8:34 documented in this encounter ED Notes * Cristina Sullivan RN - 05/14/2022 2329 EDT Ortho shoe and dressing applied by ortho team. Patient discharged home at this time. IV Dc'd, cath intact, no complications noted. VS updated prior to DC. AVS given to patient and reviewed with pt bytorie CONLEY. Pt given DC instructions, information on f/u, medications, S&S of worsening condition and when to return to the ED. Pt verbalized understanding and will f/u as instructed. Pt is ambulatory out of department in [facility]. * Cristina Sullivan RN - 05/14/2022 2252 EDT For all follow ups and to set up any appointments and home health, please call Js Scott to set [facility] [phone] * Cristina Sullivan RN - 05/14/2022 1926 EDT Pt waiting on Ortho., VS updated, lights off for comfort. * Filipe Doty MD - 05/14/2022 1539 EDT Emergency Department Visit This documentation is recorded by Ana Hare acting as Scribe under the direction and presenceof Filipe Doty MD. Filipe Doty MD: I personally performed the services recorded by the scribe in my presence. I confirm the scribe's documentation has been reviewed by me to accurately and completely record my work, treatment, procedures, and medical decision making. Medical Decision Making Relevant Data as of 05/15/22 0803 Sun May 14, 2022 1546 61-year-old male history of type 2 diabetes, polyneuropathy, chronic DVT on Eliquis, osteomyelitis with right BKA now presents with wound on the base of left heel. He just noticed it a couple ofdays ago when he started seeing blood and possibly some purulent discharge in his sock. Patient denies any systemic symptoms. No fever, chills. Differential diagnosis includes cellulitis, osteomyelitis, abscess. Further evaluation includes x-ray of the left foot, infection labs and orthopedic consult. [DW] 181 XR FOOT LEFT 3 OR MORE VIEWS X-ray left foot shows soft tissue swelling with no signs of osteomyelitis. [DW] 1818 Labs reviewed: Sed rate minimally elevated 49, CRP minimally elevated 14.5. WBC normal 7.42. [DW] 2219 Discussed with social work who will arrange for some home support and dressing changes. [DW] 2219 Discussed with orthopedics who saw patient in the emergency department. Patient will be discharged home on Keflex with podiatry follow-up and dressing changes. [DW] Relevant Data User Index [DW] Filipe Doty MD Imaging obtained was reviewed and independently interpreted. Laboratory data was reviewed. Medical Decision Making Pressure injury of left foot, stage 3 (HCC): acute illness or injury Amount and/or Complexity of Data Reviewed Labs: ordered. Radiology: ordered. Decision-making details documented in ED Course. Risk Prescription drug management. Final diagnoses: Pressure injury of left foot, stage 3 (HCC) Pressure injury of skin of left heel, unspecified injury stage Disposition: Discharged Chief complaint: foot injury HPI Jeff Scott is a 61 y.o. male with type II dm with dibatic polyneuropathy, osteomyelitis of foot,chronic DVT on eliquis, right BKA who presents to the ED ambulatory with a walker reporting a woundto the bottom of his left foot. He reports he first noticed it a couple days ago, when it began bleeding and he noticed blood and possibly purulent discharge in his socks. He denies fever, chills, shortness of breath, nausea, chest pain, abdominal pain. History was provided by: patient and medical record Records reviewed include:Chart Patient's pertinent PMH, FH, SH were reviewed and edited as necessary. Nursing notes reviewed. A medical screening exam was performed. Physical Exam BP 133/77 Pulse 77 Temp 36.7 ??C (98 ??F) (Oral) Resp 17 Ht 188 cm (74) Wt (!) 127 kg (280 lb) SpO2 99% BMI 35.95 kg/m?? Physical Exam Vitals and nursing note reviewed. Constitutional: Appearance: He is well-developed. Eyes: General: No scleral icterus. Pupils: Pupils are equal, round, and reactive to light. Cardiovascular: Rate and Rhythm: Normal rate and regular rhythm. Heart sounds: Normal heart sounds. Pulmonary: Effort: Pulmonary effort is normal. Breath sounds: Normal breath sounds. Abdominal: Palpations: Abdomen is soft. Tenderness: There is no abdominal tenderness. There is no guarding. Musculoskeletal: General: Normal range of motion. Cervical back: Normal range of motion and neck supple. Skin: General: Skin is warm and dry. Findings: No rash. Comments: Half dollar size ecchymotic blister on the heel of the left foot. Neurological: Mental Status: He is alert and oriented to person, place, and time. Procedures Procedures * Glenys Delong RN - 05/14/2022 1530 EDT Ambulatory to triage with walker, reports large wound to bottom of left foot with a history of osteomylitis with a right BKA. Pt reports approx on week of seeing blood in his sock. Denies fevers, chills, NVD VSS documented in this encounter Plan of Treatment Scheduled Referrals Name Type Priority Associated Diagnoses Order Schedule AMB CONS/FOLLOW UP PODIATRY Outpatient Referral Routine/Next Available Pressure injury of left foot, stage 3 ([facility]) Expected: 05/21/2022 (Approximate), Expires: 05/15/2023 documented as of this encounter Procedures Procedure Name Priority Date/Time Associated Diagnosis Comments HOLD SST Routine 05/14/2022 16:38 EDT HOLD LAVENDER TOP Routine 05/14/2022 16: 38 EDT POCT US ED GUIDANCE PIV 05/14/2022 16:31 EDT XR FOOT LEFT 3 OR MORE VIEWS STAT 05/14/2022 16:19 EDT SED RATE STAT 05/14/2022 16:04 EDT COMPLETE BLOOD COUNT AND DIFFERENTIAL STAT 05/14/2022 16:04 EDT C REACTIVE PROTEIN STAT 05/14/2022 16 :04 EDT BASIC METABOLIC PANEL (BMP) STAT 05/14/2022 16:04 EDT documented in this encounter Results * HOLD LAVENDER TOP (05/14/2022 16:38 EDT) Hold Hold 05/14/2022 17:45 EDT [facility] Blood VENOUS BLOOD / Unknown Venipuncture / Unknown 05/14/2022 16:38 EDT 05/14/2022 16:42 EDT us Filipe Doty MD LAB INFO SERVICE AND SUPPORT & PHONE RESULT Final Result [facility] [address] [place] [address] * HOLD SST (05/14/2022 16:38 EDT) Hold Hold 05/14/2022 17:45 EDT [facility] Blood VENOUS BLOOD / Unknown Venipuncture / Unknown 05/14/2022 16:38 EDT 05/14/2022 16:42 EDT us Filipe Doty MD LAB INFO SERVICE AND SUPPORT & PHONE RESULT Final Result [facility] [address] [place] [address] * POCT US ED GUIDANCE PIV (05/14/2022 16:31 EDT) Anatomical Region Laterality Modality Other 05/14/2022 16:3 1 EDT Narrative 05/14/2022 17:32 EDT Study Date and Time: 2022-05-14 16:31 Study Author: Jennifer COHEN ED Procedural Guidance - PIV: Indications: ?Indications for this focused Ultrasound:: Evaluation for a potential access site and selected vessel patency, Failed or difficult IV access ?Other Indications:: N/A Location: ?Laterality:: Right ?Site of peripheral line:: Cephalic vein ?Other site:: N/A Complications: ?Procedure Complications:: None ?Other Complications:: N/A Interpretation: ?Exam interpretation:: Successful US-guided peripheral line insertion ?Other interpretation:: N/A Confirmatory Study: ?What confirmatory study was performed during patient ED evaluation?: POCUS visualization of catheter in lume, IV patency confirmed by flushing without resistance or tissue infiltration, POCUS visualization of agitated saline flush in lumen) ?Comments: N/A Signed by Jennifer COHEN on 2022-05-14 16:55 Physician Attestation: ?I reviewed and independently interpreted these images. ??I was present for the gurera and critical portions of the ultrasound imaging and agree with or have edited the findings as documented. Final Signature by Stanley MEDRANO on 2022-05-14 17:32 Procedure Note Filipe Doty MD - 05/14/2022 Study Date and Time: 2022-05-14 16:31 Study Author: Jennifer COHEN ED Procedural Guidance - PIV: Indications: Indications for this focused Ultrasound:: Evaluation for a potentialaccess site and selected vessel patency, Failed or difficult IV access Other Indications:: N/A Location: Laterality:: Right Site of peripheral line:: Cephalic vein Other site:: N/A Complications: Procedure Complications:: None Other Complications:: N/A Interpretation: Exam interpretation:: Successful US-guided peripheral line insertion Other interpretation:: N/A Confirmatory Study: What confirmatory study was performed during patient ED evaluation?:POCUS visualization of catheter in lume, IV patency confirmed by flushingwithout resistance or tissue infiltration, POCUS visualization of agitatedsaline flush in lumen) Comments: N/A Signed by Jennifer Winslow IVT on 2022-05-14 16:55 Physician Attestation: I reviewed and independently interpreted these images. I was presentfor the guerra and critical portions of the ultrasound imaging and agree withor have edited the findings as documented. Final Signature by Stanley MEDRANO on 2022-05-14 17:32 us Filipe Doty MD IMG POCT US ORDERABLE S Final Result * XR FOOT LEFT 3 OR MORE VIEWS (05/14/2022 16:19 EDT) Anatomical Region Laterality Modality Lower Extremities Left Computed Radio graphy 05/14/2022 16:3 0 EDT Impressions 05/14/2022 16:30 EDT FINDINGS / IMPRESSION: 3 views of the left foot demonstrate diffuse hypertrophic arthrosis. There is mild diffuse soft tissue swelling. Skin defect is identified at the calcaneus. No underlying erosions lytic change or periostitis.. Utilization of the posterior process of the calcaneus is maintained. No specific findings of osteomyelitis. Narrative 05/14/2022 16:30 EDT EXAM/TECHNIQUE: XR FOOT LEFT 3 OR MORE VIEWS ??05/14/2022 4:10 PM HISTORY: ?? left heel ulcer COMPARISON: None. Procedure Note Martin Connolly MD - 05/14/2022 EXAM/TECHNIQUE: XR FOOT LEFT 3 OR MORE VIEWS 05/14/2022 4:10 PM HISTORY: left heel ulcer COMPARISON: None. IMPRESSION FINDINGS / IMPRESSION: 3 views of the left foot demonstrate diffuse hypertrophic arthrosis. Thereis mild diffuse soft tissue swelling. Skin defect is identified at thecalcaneus. No underlying erosions lytic change or periostitis..Utilization of the posterior process of the calcaneus is maintained. Nospecific findings of osteomyelitis. Filipe Doty MD IMG DIAGNOSTIC IMAGIN G ORDERABLES Final Result * (ABNORMAL) BASIC METABOLIC PANEL (BMP) (05/14/2022 16:04 EDT) Sodium 139 136 - 145 mmol/L 05/14/2022 16:38 [facility] Potassium 4.9 3.5 - 5.0 mmol/L 05/14/2022 16:38 [facility] Comment:Slight hemolysis terry ntified, interpret with caution as hemolysis will elevate potassium result. Chloride 104 96 - 110 mmol/L 05/14/2022 16:38 [facility] CO2 Total 22 22 - 32 mmol/L 05/14/2022 16:38 [facility] Anion Gap 13 5 - 14 05/14/2022 16:38 [facility] Glucose 130(H) 70 - 100 mg/dL 05/14/2022 16:38 [facility] Calcium 9.1 8.5 - 10.5 mg/dL 05/14/2022 16:38 [facility] BUN 16 10 - 26 mg/dL 05/14/2022 16:38 [facility] Comment: Slight hemolysis identified, interpret with caution as results may be affected due to hemolysis. Creatinine 0.82 0.66 - 1.25 mg/dL 05/14/2022 16:38 [facility] eGFR 101 >60 mL/min/1.7 3m2 05/14/2022 16:38 [facility] Blood VENOUS BLOOD / Unknown Venipuncture / Unknown 05/14/2022 16:04 EDT 05/14/2022 16:09 EDT Filipe Doty MD CHEMISTRY & BLOOD GAS ORDERABLES Final Result [facility] [address] [place] [address] * (ABNORMAL) SED RATE (05/14/2022 16:04 EDT) [facility] Sed Rate 49(H) 0 - 20 mm/hr 05/14/2022 17:57 EDT [facility] Blood VENOUS BLOOD / Unknown Venipuncture / Unknown 05/14/2022 16:04 EDT 05/14/2022 16:09 EDT us Filipe Doty MD HEMATOLOGY & PF4 ORDE RABLES Final Result [facility] [address] [place] [address] * (ABNORMAL) C REACTIVE PROTEIN (05/14/2022 16:04 EDT) [facility] C-Reactive Protein 14.5(H) <10.0 mg/L 05/14/2022 16:37 EDT [facility] Blood VENOUS BLOOD / Unknown Venipuncture / Unknown 05/14/2022 16:04 EDT 05/14/2022 16:09 EDT Filipe Doty MD CHEMISTRY & BLOOD GAS ORDERABLES Final Result Performing Organization Address City/[facility]/ZIP Co de Phone Number [facility] [address] [place] [address] * (ABNORMAL) COMPLETE BLOOD COUNT AND DIFFERENTIAL (05/14/2022 16:04 EDT) [facility] WBC 7.42 4.00 - 10.40 K/cmm 05/14/2022 16:37 EDT [facility] RBC 3.96(L) 4.36 - 5.78 M/cmm 05/14/2022 16:37 EDT [facility] Hemoglobin 11.2(L) 13.8 - 17.3 gm/dL 05/14/2022 16:37 EDT [facility] HCT 35.2(L) 39.5 - 50.2 % 05/14/2022 16:37 [facility] MCV 89 81 - 95 fl 05/14/2022 16:37 [facility] MCH 28.3 27.6 - 33.0 pg 05/14/2022 16:37 [facility] MCHC 31.8(L) 32.8 - 36.4 gm/dL 05/14/2022 16:37 [facility] RDW-CV 14.1 <14.2 % 05/14/2022 16:37 [facility] RDW-SD 45.2 <46.0 fl 05/14/2022 16:37 [facility] PLT 218 141 - 377 K/cmm 05/14/2022 16:37 [facility] MPV 10.5 9.5 - 12.7 fl 05/14/2022 16:37 [facility] % Neutrophils 73.8 % 05/14/2022 16:37 [facility] % Lymphocytes 18.2 % 05/14/2022 16:37 [facility] % Monocytes 5.8 % 05/14/2022 16:37 [facility] % Eosinophils 1.3 % 05/14/2022 16:37 [facility] % Basophils 0.5 % 05/14/2022 16:37 [facility] % Immature Grans 0.4 % 05/15/19 16:37 [facility] Absolute Neutrophils 5.47 2.20 - 8.85 K/cmm 05/14/2022 16:37 [facility] Absolute Lymphocytes 1.35 1.09 - 3.30 K/cmm 05/14/2022 16:37 [facility] Absolute Monocytes 0.43 0.10 - 0.80 K/cmm 05/14/2022 16:37 [facility] Absolute Eosinophils 0.10 0.03 - 0.61 K/cmm 05/14/2022 16:37 [facility] ABS Basophils 0.04 0.01 - 0.11 K/cmm 05/14/2022 16:37 EDT [facility] Absolute Immature Grans 0.03 0.00 - 0.06 K/cmm 05/14/2022 16:37 EDT [facility] Type of Differential: Auto 05/14/2022 16:37 EDT [facility] Blood VENOUS BLOOD / Unknown Venipuncture / Unknown 05/14/2022 16:04 EDT 05/14/2022 16:09 EDT us Filipe Doty MD PACKAGES & DNA PROBE ORDERABLES Final Result [facility] [address] [place] [address] documented in this encounter Visit Diagnoses Diagnosis Pressure injury of left foot, stage 3 ([facility])- Primary Pressure injury of skin of left heel, unspecified injury stage documented in this encounter Administered Medications Inactive Administered Medications - up to 3 most recent administrations Medication Order MAR Action Action Date Dose Rate Site Cephalexin 500 mg Cap STARTER PACK 1 Package, oral, NOW X1, 1 dose, On 05/14/22 at 2230, STAT Given 05/14/2022 23:14 EDT 1 Package documented in this encounter Active and Recently Administered Medications Due to Daylight Saving Time, this section may contain times in both EST and EDT. Scheduled Medication Order 05/12/2022 05/13/2022 05/14/2022 Cephalexin 500 mg Cap STARTER PACK (COMPLETED) 1 Package, oral, NOW X1, 1 dose, On 05/14/22 at 2230, STAT 2314 (Given - Provid er: Turner Lagos RN) documented in this encounter Care Teams Playground Director Relationship Specialty Start Date End Date Jason Batres MD [address] [place] [id number] PCP - General 07/27/11 12/31/23 Alexus De La O, ophthalmic photographer 04/18/22 08/13/23 documented as of this encounter
--- OUTSIDE RECORDS SUMMARY | 2024-02-28 16:42 | XMS_ITS | Encounter Summary ---
Author Organization [facility] Address [address] [place] [address] Care Team Providers Care Pearl Restorer Name Role Phone Jason Batres MD Primary Care Provi margarita Alexus De La O RN Unavailable [facility] Internal Medicine, Primary Care Provi margarita Reason for Referral * PT/OT/ST (Routine/Next Available) - Closed Specialty Diagnoses / Procedures [facility] Referred To Contact Diagnoses Left hip pain Sachin Burroughs MD MSc [facility] Phone: tel: fax: Referral ID Status Reason Start Date Expiration Date V isits Requested Visits Authorized [id number] Closed Specialty Services Required 04/26/2022 1 1 Question Answer Surgery (and Date): 02.13.22 Reason for Request: Left Posterior Total Hip Arthroplasty Comments Evaluate and treat using post-op protocol All modalities accepted, AT/OT/PT ATC services if available and appropriate. Reason for Visit * Reason Onset Date Comments Hip Pain 04/25/2022 Encounter Details Date Type Department Care Team (Late st Contact Info) Description 04/25/2022 Orders Only [facility] Total Joint Program - [address] [place] [address] Sach[facility] Burrough[facility] MD [facility] [address] [place] [phone] Left hip pain (Primary Dx) Social [...] Order Schedule AMB CONS/FOLLOW UP PHYSICAL THERAPY Outpatient Referral Routine/Next Available Left hip pain Expected: 05/02/2022 (Approximate), Expires: 04/25/2023 documented as of this encounter Results * [...] are grosslyunremarkable. us Sachin Burroughs MD MSc [facility] IMG DIAGNOSTIC I MAGING ORDERABLES Final Result [...] are grosslyunremarkable. us Sachin Burroughs MD MSc [facility] IMG DIAGNOSTIC I MAGING ORDERABLES Final Result documented in this encounter Visit Diagnoses Diagnosis Left hip pain- Primary Pain in joint, pelvic region and thigh Left hip pain Pain in joint, pelvic region and thigh documented in this encounter Care Teams Pearl Restorer Relationship Specialty Start Date End Date Jason Batres MD [address] [place] [address] PCP - General 07/27/11 12/31/23 [facility] Internal Medicine, [address] [place] [address] PCP - General 01/01/24 Alexus De La O, automobile body customizer 04/18/22 08/13/23 documented as of this encounter
--- OUTSIDE RECORDS SUMMARY | 2024-02-28 16:42 | XMS_ITS | Encounter Summary ---
Author Organization [facility] Address [address] [place] [address] Care Team Providers Care Manager Cargo Name Role Phone Jason Batres MD Primary Care Provi margarita Reason for Visit * Auth/Cert Specialty Diagnoses / Procedures Referred By Eddie crocker Referred To Contact Diagnoses Other chronic pain Failure to thrive in adult Acute osteomyelitis of right ankle or foot (HCC-CMS) Primary osteoarthritis of left hip Recurrent falls Hx of BKA, right (HCC-CMS) Osteoarthritis of left hip, unspecified osteoarthritis type Hypothyroidism, unspecified type Type 2 diabetes mellitus with diabetic polyneuropathy, with long-term current use of insulin (HCC-CMS) Chronic deep vein thrombosis (DVT) of proximal vein of left lower extremity ([facility]-CMS) Benign prostatic hyperplasia, unspecified whether lower urinary tract symptoms present Gastroesophageal reflux disease with esophagitis and hemorrhage Referral ID Status Reason Start Date Expiration Date Visits Re quested Visits Authorized [id number] 1 1 Encounter Details Date Type Department Care Team (Late st Contact Info) Description 02/13/2022 15:40 EST Anesthesia Event [facility] Main [place] OR [address] [place], [place] [id number] Preeti Mae MD [address] [place] [phone] Sachin Yarbrough CRNA [address] [phone] Anesthesia Record Procedure Summary Procedure Name Responsible Anesthesiologist Anesthesia Start Time Anesthesia Stop Time Left Posterior Total Hip Arthroplasty (Left: Hip) Preeti Mae MD 02/13/22 1540 02/13/22 193 Events Date Time Event Comment 02/13/2022 1540 An Start The patient was re-evaluated immediately before moderate or deep sedation use, before anesthesia induction, or before the anesthesia procedure. 1545 An Start Data 1557 Block Placed 1602 Anesthesia Ready 1745 Primary Handoff Primary Anes thesia Provider relieved. Anesthesia care handoff involved joint review of the surgical site and planned procedure, significant past medical history, intraoperative course including but not limited to airway management, anesthetic maintenance, monitors, IV access, fluid management, and postoperative plan. 1758 Suraj Medicated for c /o shoulder pain 184 Suraj Medicated for s houlder pain 1927 an stop data 7 Handoff to RN I completed my handoff to the receiving nurse during which we: 1. Identified the patient 2. Identified the responsible provider 3. Reviewed the pertinent medical history 4. Discussed the surgical course 5. Reviewed intra-op anesthesia management and issues during anesthesia 6. Set expectations for post-procedure period 7. Allowed opportunity for questions and acknowledgement of understanding. 1937 An Stop Meds Name Total dexaMETHasone 4 mg/mL injection 4 mg fentanyl citrate (PF) injection 15 mcg fentanyl citrate (PF) injection 200 mcg midazolam (VERSED) injection 1 mg/mL 3 m g ondansetron (PF) (ZOFRAN) injection 4 mg propOFol (DIPRIVAN) injection 1,354,011. 57 mcg ceFAZolin (ANCEF) syringe 2 g 4 g mepivacaine 2 % injection 60 mg tranexamic acid injection 1,000 mg phenylephrine pre-filled syringe 700 mcg phenylephrine vial 3,250 mcg metoprolol injection 2.5 mg ketAMINE 5 mL prefilled syringe 30 mg acetaminophen 10 mg/ml 100 mL infusion 1 ,000 mg lactated ringers (LR) infusion 1,650 mL * Agents Name O2 N2O Air Aux O2 flow * Blood No blood administrations on file. Lines, Drains, and Airways Type Details Placement Removal Wound 11/20/21; 2199; Othe r; Dorsal (Foot), Left; Foot; Left middle toe; Y; Not applicable 11/20/212199 by Alfa Nair RN Wound 02/01/22; 0815; Othe r; Left, Lateral; Ankle 02/01/22 0815 by Tangela Avila RN Wound 02/06/22; 2030; Rodo girish; Right; Buttock 02/06/222029 by Anneliese Hooker RN Wound 12/29/20; 1857; Inci girish; Anterior, Right; Leg; N; 04/11/22; 0740; Healed 12/29/20 1857 by Jyotsna Lyons RN 04/11/22 0740 by Nguyen Sood RN Wound 12/31/20; 2123; Inci girish; Anterior, Right, Lower; Leg; right BKA; N; 04/11/22; 0740 12/31/202123 by Arianne Novoa RN 04/11/22 0740 by Nguyen Sood RN Wound 01/03/21; 0852; Cocc yx; 04/11/22; 0740 01/03/21 0852 by Britney Sevilla RN 04/11/22 0740 by Nguyen Sood RN Wound 01/10/21; 1999; Othe r (excoriation); Left; Groin; Not applicable; 02/13/22; 1630 (not previously resolved) 01/10/211999 by Tonya Ho RN 02/13/22 1630 by Senait Goddard RN Peripheral IV 02/13/22; 0137; 02/02 11/24; 20; 1.75; B Mock Introcan; Right; Forearm; Inserted by RN, Ultrasound Guided; 1; None; 2% Chlorhexidine with IPA; 02/16/22; 0916; Infiltrated 02/13/22 0137 by Fan Sanches RN 02/16/22 0916 by Pancho Kim RN Wound 02/13/22; 1631; Inci girish; Left; Hip; Full thickness; 04/11/22; 0739; Healed 02/13/22 1631 by Senait Goddard RN 04/11/22 0739 by Nguyen Sood RN documented in this encounter Social History Tobacco Use Types Packs/Day [...] Chelsea Kwon RN documented in this encounter OR Notes * Anesthesia Postprocedure Evaluation - Fauzia Harrell CRNA - 02/13/2022 1938 EST Patient: Jeff Scott Vital signs were reviewed with the recovery nurse. Complete vitals history is available in the [facility]. Vitals Value Taken Time BP 98/83 02/13/221935 Temp 36.6 02/13/221937 Resp 21 02/13/221936 Pulse From Oximetry 101 BPM 02/13/221936 SpO2 97 % 02/13/221936 Heart Rate 101 BPM 02/13/221936 Vitals shown include unvalidated device data. Last Pain Score - Numeric Pain Level (Scale 1-10): 0 Type of Anesthesia - neuraxial block Anesthesia Post Evaluation Post-procedure vitals reviewed and are stable. Level of consciousness: awake Temperature status: normothermia Respiratory status: airway patent, nasal cannula and O2 Sat-appropriate for condition Cardiovascular status: acceptable, stable and appropriate for condition Hydration status: adequate Nausea/Vomiting: none Pain management: adequate Post-Op Assessment: patient tolerated procedure well with no complications and patient satisfied with anesthesia care Patient participation: able to participate Disposition: inpatient Anesthesia Complications: No apparent anesthesia complications * Anesthesia Procedure Notes - Bijan Bennett MD - 02/13/2022 1611 EST Associated Order(s): Spinal Block Spinal Block Patient location during procedure: OR Start time: 02/13/2022 15:55 End time: 02/13/2022 16:00 Staffing Performed: anesthesiologist Anesthesiologist: Bijan Bennett MD Preanesthetic Checklist Completed: patient identified, IV checked, risks and benefits discussed, surgical consent, monitorsand equipment checked, pre-op evaluation and timeout performed Spinal Block Patient position: sitting Prep: ChloraPrep, site prepped and draped, skin prep agent completely dried prior to procedure, sterile gloves, mask used and subcutaneous lidocaine Patient monitoring: heart rate, continuous pulse ox and BP cuff Approach: midline Location: L4-5 Injection technique: single-shot Needle Needle type: Eli Needle gauge: 25 G Needle length: 5 in Assessment Events: cerebrospinal fluid and no paresthesia * Anesthesia Preprocedure Evaluation - Adam Santiago MD - 02/10/2022 1540 EST Images from the original note were not included. Anesthesia Preprocedure Evaluation CHART REVIEW ONLY - PT NOT SEEN OR CONSENTED Jeff has been in a hospital - either [facility] - since September 2021, primarily due to medical issues that rehab facilities and/or home health care providers were unwilling to service. At this moment, he needs 24 hr assistance c his ADLs but he has been working hard at his physical therapy in order to live independently again. However, he is limited by his hip pain and will be having a hip replacement so that he can continue his progress. Jeff is currently in a wheelchair due to his hip pain on his L side and his R leg amputation. He is an insulin dependent diabetic who has managed to decrease his AIC from > 13 to now ~ 8. Other medical issues include: diabetic neuropathy hypothyroidism. 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 ECG 02/10/22: TTE Dec 23 highlights LVEH = 60% and WNL RV = severely dilated Tricusped valve = slight regurg PAP > 30 mmHg OTW WNL Patient Medical History, including Anesthesia History reviewed. Chart and Nursing Notes reviewed, including NPO status and Medication History. Additional ROS/History Findings: No Known Allergies Review of Systems Constitutional: Negative. Respiratory: Negative. Cardiovascular: Negative. Gastrointestinal: Negative for heartburn, nausea and vomiting. Musculoskeletal: Negative for neck pain. Endo/Heme/Allergies: Does not bruise/bleed easily. Past Medical History: Diagnosis Date ??? Arthritis ??? Back pain ??? Diabetes mellitus (HCC) ??? Hypothyroidism ??? Wears glasses Relevant Problems CARDIOVASCULAR (+) Chronic deep vein thrombosis (DVT) of proximal vein of left lower extremity (HCC) (+) Deep vein thrombosis (DVT) of proximal vein of left lower extremity, unspecified chronicity (HCC-CMS) (HCC) GASTROINTESTINAL (+) Gastroesophageal reflux disease with esophagitis and hemorrhage ENDO/GI (+) Hypothyroidism (+) Hypothyroidism, unspecified type (+) Type 2 diabetes mellitus with diabetic polyneuropathy, with long-term current use of insulin (HCC-CMS) ([facility]) (+) Type 2 diabetes mellitus without complication, with long-term current use of insulin (HCC-CMS) ([facility]) Other (+) Acute osteomyelitis of phalanx of foot (HCC-CMS) ([facility]) (+) Acute osteomyelitis of right ankle or foot (HCC-CMS) ([facility]) (+) 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 (HCC-CMS) ([facility]) Physical Exam Airway Mallampati: III TM distance: >3 FB Neck ROM: full Cardiovascular - normal exam Rhythm: regular Rate: normal Dental - normal exam Comments: Generally poor dentition Pulmonary - normal exam Breath sounds clear to auscultation Abdominal Anesthesia Plan ASA 3 Anesthesia Type - neuraxial block - via spinal Anesthesia plan and risks discussed. Informed consent obtained from patient. Use of blood products discussed with patient who consented to blood products. Specific risks discussed were bleeding, incomplete block, headache, infection, nerve damage, nausea, vomiting, , ICU placement and myocardial infarction. Code status discussed? No The preoperative history and physical which was performed within 30 days of this procedure, has been reviewed and the clinically appropriate elements of the physical examination have been repeated. There are no changes to the documented history and physical or, if so, such changes are documented inthis note PAT Note Notes from 01/11/22 through 02/10/22 No notes of this type exist for this encounter. documented in this encounter Miscellaneous Notes * Addendum Note - Preeti Mae MD - 02/28/2022 0801 EST Addendum created 02/28/22 08 by Preeti Mae MD Attestation recorded in Intraprocedure, Intraprocedure Attestations filed, Intraprocedure Staff edited documented in this encounter Plan of Treatment Not on file documented as of this encounter Procedures Procedure Name Priority Date/Time Associated Diagnosis Comments ANESTHESIA SPINAL BLOCK Routine 02/13/2022 16:11 EST documented in this encounter Results * Spinal Block (02/13/2022 16:11 EST) Narrative [facility] POINT [facility] CARE - 02/13/2022 16:11 EST Bijan Bennett MD ? 02/13/2022 16:11 Spinal Block Patient location during procedure: OR Start time: 02/13/2022 15:55 End time: 02/13/2022 16:00 Staffing Performed: anesthesiologist Anesthesiologist: Bijan Bennett MD Preanesthetic Checklist Completed: patient identified, IV checked, risks and benefits discussed, surgical consent, monitors and equipment checked, pre-op evaluation and timeout performed Spinal Block Patient position: sitting Prep: ChloraPrep, site prepped and draped, skin prep agent completely dried prior to procedure, sterile gloves, mask used and subcutaneous lidocaine Patient monitoring: heart rate, continuous pulse ox and BP cuff Approach: midline Location: L4-5 Injection technique: single-shot Needle Needle type: Eli Needle gauge: 25 G Needle length: 5 in Assessment Events: cerebrospinal fluid and no paresthesia Bijan Bennett MD ANESTHESIA ORDERABLES Final Result [facility] POINT OF CARE documented in this encounter Visit Diagnoses Not on filedocumented in this encounter Administered Medications Inactive Administered Medications - up to 3 most recent administrations Medication Order MAR Action Action Date Dose Rate Site acetaminophen (OFIRMEV) IV solution intravenous, PRN, Starting on Sun02/13/22 at 1848, Until Sun02/13/22 at 1938, Routine, Anesthesia Intraprocedure Given 02/13/2022 18:48 EST 1,000 mg ceFAZolin (ANCEF) syringe 2 g 2 g, intravenous, Administer over 5 Minutes, PRE-OP ONCE, 1 dose, On Sun02/13/22 at 1530, Routine, Preprocedure Given 02/13/2022 18:32 EST 1 g Given 02/13/2022 16:00 EST 3 g dexAMETHasone (DECADRON) injection intravenous, PRN, Starting on Sun02/13/22 at 1618, Until Sun02/13/22 at 1938, Routine, Anesthesia Intraprocedure Given 02/13/2022 16:18 EST 4 mg fentaNYL citrate (PF) injection intrathecal, PRN, Starting on Sun02/13/22 at 1557, Until Sun02/13/22 at 1938, Routine, Anesthesia Intraprocedure Given 02/13/2022 15:57 EST 15 mcg fentaNYL citrate (PF) injection intravenous, PRN, Starting on Sun02/13/22 at 1547, Until Sun02/13/22 at 1938, Routine, Anesthesia Intraprocedure Given 02/13/2022 19:35 EST 25 mcg Given 02/13/2022 19:07 EST 25 mcg Given 02/13/2022 18:51 EST 25 mcg ketAMINE in NaCl, iso-osmotic (KETALAR) 50 mg/5 mL (10 mg/mL) IV injection intravenous, PRN, Starting on Sun02/13/22 at 1758, Until Sun02/13/22 at 1938, Routine, Anesthesia Intraprocedure Given 02/13/2022 18:51 EST 10 mg Given 02/13/2022 18:45 EST 10 mg Given 02/13/2022 17:58 EST 10 mg lactated ringers (LR) infusion at 25 mL/hr, intravenous, CONTINUOUS, Starting on Sun02/13/22 at 1530, Until Sun02/14/22 at 1655, Routine, Preprocedure New Bag 02/13/2022 17:40 EST Continued by Anesthesia 02/13/2022 15:40 EST 25 mL/hr New Bag 02/13/2022 15:23 EST 25 mL/hr mepivacaine (CARBOCAINE) 2 % injection intrathecal, PRN, Starting on Sun02/13/22 at 1557, Until Sun02/13/22 at 1938, Routine, Anesthesia Intraprocedure Given 02/13/2022 15:57 EST 60 mg metoprolol TARtrate (LOPRESSOR) injection intravenous, PRN, Starting on Sun02/13/22 at 1740, Until Sun02/13/22 at 1938, Routine, Anesthesia Intraprocedure Given 02/13/2022 17:40 EST 2.5 mg midazolam (PF) (VERSED) injection intravenous, PRN, Starting on Sun02/13/22 at 1547, Until Sun02/13/22 at 1938, Routine, Anesthesia Intraprocedure Given 02/13/2022 17:57 EST 1 mg Given 02/13/2022 15:47 EST 2 mg ondansetron (PF) (ZOFRAN) injection intravenous, PRN, Starting on Sun02/13/22 at 1555, Until Sun02/13/22 at 1938, Routine, Anesthesia Intraprocedure Given 02/13/2022 15:55 EST 4 mg phenylephrine (SAMANTHA-SYNEPHRINE) injection intravenous, FA IP EQF CONTINUOUS PRN FOR ONE STEP MEDS, Starting on Sun02/13/22 at 1729, Until Sun02/13/22 at 1938, Routine, Anesthesia Intraprocedure Rate Change 02/13/2022 18:10 EST 35 mcg/min 0.21 mL/hr Rate Change 02/13/2022 17:58 EST 30 mcg/min 0.18 mL/hr New Bag 02/13/2022 17:29 EST 20 mcg/min 0.12 mL/hr phenylephrine HCl in 0.9% NaCl injection intravenous, PRN, Starting on Sun02/13/22 at 1644, Until Sun02/13/22 at 1938, Routine, Anesthesia Intraprocedure Given 02/13/2022 18:10 EST 100 mcg Given 02/13/2022 17:21 EST 100 mcg Given 02/13/2022 17:08 EST 100 mcg propOFol (DIPRIVAN) injection intravenous, FA IP EQF CONTINUOUS PRN FOR ONE STEP MEDS, Starting on Sun02/13/22 at 1602, Until Sun02/13/22 at 1938, Routine, Anesthesia Intraprocedure Rate Change 02/13/2022 18:39 EST 50 mcg/kg/min 40.26 mL/hr Rate Change 02/13/2022 18:15 EST 60 mcg/kg/min 48.312 mL/h r Rate Change 02/13/2022 17:58 EST 70 mcg/kg/min 56.364 mL/h r tranexamic acid (CYKLOKAPRON) injection intravenous, PRN, Starting on Sun02/13/22 at 1556, Until Sun02/13/22 at 1938, Routine, Anesthesia Intraprocedure Given 02/13/2022 15:56 EST 1,000 mg documented in this encounter Care Teams Manager Cargo Relationship Specialty Start Date End Date Jason Batres MD [address] [place] [id number] PCP - General 07/27/11 12/31/23 documented as of this encounter
--- OUTSIDE RECORDS SUMMARY | 2024-02-28 16:42 | XMS_ITS | Encounter Summary ---
Author Organization [facility] Address [address] [place] [address] Care Team Providers Care Claims Adjuster Crop Name Role Phone Jason Batres MD Primary Care Provi margarita Alexus De La O RN [facility], Primary Care Provi margarita Reason for Visit * Reason Onset Date Comments Medication Management 05/15/2022 Encounter Details Date Type Department Care Team (Late st Contact Info) Description 05/15/2022 Telephone [facility], [address] [facility] [address] [place] [address] Constance Mix, business analytics faculty member Management Social History Tobacco Use Types Packs/Day Years [...] Date of Assessment Author No 11/20/2021 20:00 FREDERICT Chelsea Nair RN * Do you have [...] Telephone Encounter - Constance Mix RN - 05/15/2022 3213 EDT Pt called, he states he was sent home with 4 tabs of Keflex after ED visit yesterday and is asking for more to be called in. Pt was seen for ulcer on left foot. Per chart Dr. Doty (who he saw at ED)sent in Keflex 250mg take 2 capsules by mouth QID for 7 days to [facility]. Pt verbalized unde rstanding. He plans to f/u with podiatry. CONSTANCE MIX RN documented in this encounter Plan of Treatment Not on file documented as of this encounter Visit Diagnoses Not on filedocumented in this encounter Care Teams Claims Adjuster Crop Relationship Specialty Start Date End Date Jason Batres MD [address] [place] [address] PCP - General 07/27/11 12/31/23 [facility] Internal [facility], [place] [place] [address] PCP - General 01/01/24 Alexus De La O, rig hand 04/18/22 08/13/23 documented as of this encounter
--- OUTSIDE RECORDS SUMMARY | 2024-02-28 16:42 | XMS_ITS | Encounter Summary ---
Author Organization [facility] Address [address] [place] [address] Care Team Providers Care Nursery Rn Name Role Phone Jason Batres MD Primary Care Provi margarita Alexus De La O RN Unavailable Unavailable Reason for Visit * Reason Comments Post-OP Follow Up * Consult (Routine/Next Available) - Order Cancelled Specialty Diagnoses / Procedures Referred By Eddie crocker Referred To Contact Orthopedic Surgery Diagnoses Osteoarthritis of left hip, unspecified osteoarthritis type Sachin Venegas MD [address] [place] [address] Phone: tel: fax: [facility] Total [facility] Program - [place] [address] Phone: tel: fax: Referral ID Status Reason Start Date Expiration Date Visits Requested Visits Authorized [id number] Order Cancelled Specialty Services Required 2 1 1 Encounter Details Date Type Department Care Team (Late st Contact Info) Description 05/02/2022 16:00 EST Post-op Visit [facility] - [place] [address] Sachin Burroughs MD MSc [address] [phone] Status post total replacement of [...] Progress Notes * Sachin Burroughs MD - 05/02/2022 1600 EST It was a pleasure to reassess Jeff in our orthopedic clinic today. As you know, this 61-year-old gentleman underwent a left posterior total hip replacement by myself in February 2022. He has done well postoperatively. He denies any fevers or chills. He can now ambulate with a walker and a right below-knee prosthesis. He denies any hip pain. He has some posterior thigh stiffness and discomfort wit h certain positions such as hip flexion. He is working with PT. He says he exercises religiously. He is still living in a hotel. On exam, the patient ambulated with his walker and right leg prosthesis today without any difficulties. This is the first time I have ever seen him walk and I congratulated him. Left hip incision waswell-healed with no sign of infection. No pain with left hip range of motion. Slight stiffness. He was neurovascularly intact. His x-rays demonstrate the left total hip components in good position with no hardware complications. I am very pleased with the patient's progress today. At this point he should continue to do his exercises. I stressed the importance of ongoing good glucose control and taking care of his overall health. All of his questions were answered and he was pleased with our interaction today. He will see me back for follow-up in 3 months with new x-rays of the left hip for routine surveillance. documented in this encounter Plan of Treatment Not on file documented as of this encounter Visit Diagnoses Diagnosis Status post total replacement of left hip- Primary documented in this encounter Care Teams Nursery Rn Relationship Specialty Start Date End Date Jason Batres MD [address] [place] [address] PCP - General 07/27/11 12/31/23 Alexus De La O RN Care Manager 04/18/22 08/13/23 documented as of this encounter
--- OUTSIDE RECORDS SUMMARY | 2024-02-28 16:42 | XMS_ITS | Encounter Summary ---
Author Organization [facility] Address [address] [place] [address] Care Team Providers Care Marketing Account Manager Name Role Phone Jason Batres MD Primary Care Provi margarita Alexus De La O RN [facility], Primary Care Provi margarita Reason for Visit * Reason Onset Date Comments [facility] 11/17/2021 Encounter Details Date Type Department Care Team (Late st Contact Info) Description 11/17/2021 Telephone Jason Batres MD, PC [address] [place] [address] Jason Batres MD [address] [place] [phone] [facility] Social History Tobacco Use Types Packs/Day Years [...] David Dougherty RN documented in this encounter Miscellaneous Notes * Telephone Encounter - Carmelita Hogue APRN - 11/18/2021 0823 EDT noted * Telephone Encounter - Keyla Rhodes - 11/17/2021 1611 EDT [facility] ADMITTED PATIENT TO CORRECTION SERVICE STATED Sunday 11/19. documented in this encounter Plan of Treatment Not on file documented as of this encounter Visit Diagnoses Not on filedocumented in this encounter Additional Health Concerns Infection Onset Date Last Indicated Resolved Time R/O COVID-19 Comment:Negative 02/17/2022 02/17/2022 02/18/2022 7:30 EST Rule-Out C. difficile 02/25/2022 02/25/20222021 12:00 EST R/O COVID-19 04/09/2022 04/09/2022 04/09/2022 16:3 2 EST documented as of this encounter Care Teams Marketing Account Manager Relationship Specialty Start Date End Date Jason Batres MD [address] [place] [address] PCP - General 07/27/11 12/31/23 [facility] Internal Medicine, [place] [address] [place] [address] PCP - General 01/01/24 Alexus De La O, store team member 04/18/22 08/13/23 documented as of this encounter
--- OUTSIDE RECORDS SUMMARY | 2024-02-28 16:42 | XMS_ITS | Encounter Summary ---
Author Organization [facility] Address [address] [place] [address] Care Team Providers Care Steam Shovel Operator Name Role Phone Jason Batres MD Primary Care Provi margarita Edmundo De La O RN Unavailable Unavailable Encounter Details Date Type Department Care Team (Late st Contact Info) Description 04/27/2022 Patient Outreach Jason Batres MD, PC [address] [place], [place] [id number] Edmundo De La O RN Social History [...] * Edmundo De La O RN - 04/27/2022 1152 EST [facility] Administrator Care Coordination ?? urban forester spoke with Js on 04/27/22 in order to coordinate care. ?? Danny discussed CGM and Life Alert with Livan ALVAREZ at PCP hospital discharge follow up visit. ?? Scheduled time with Js for this CM to contact Js to discuss these. PLAN: Follow up 05/02/22 EDMUNDO DE LA O RN 04/27/2022 11:53 documented in this encounter Plan of Treatment Not on file documented as of this encounter Visit Diagnoses Not on filedocumented in this encounter Care Teams Steam Shovel Operator Relationship Specialty Start Date End Date Jason Batres MD [address] [place] [id number] PCP - General 07/27/11 12/31/23 Edmundo De La O RN Care Manager 04/18/22 08/13/23 documented as of this encounter
--- OUTSIDE RECORDS SUMMARY | 2024-02-28 16:42 | XMS_ITS | Encounter Summary ---
Author Organization [facility] Address [address] [place] [address] Care Team Providers Care Pediatric Occupational Therapist Name Role Phone Jason Batres MD Primary Care Provi margarita Alexus De La O RN Unavailable Unavailable Reason for Visit * Reason Comments Hospital Discharge Follow Up Encounter Details Date Type Department Care Team (Late st Contact Info) Description 04/25/2022 15:30 EST Office Visit Terry Batres MD [facility] [address] [place] [address] Herman Horton, [facility] [address] [place] [address] Type 2 diabetes mellitus with other circulatory complication, with long-term current use of insulin ([facility]) (Primary Dx); Hx of right BKA ([facility]); S/P total left hip arthroplasty; Recurrent falls; Failure to thrive in adult; Chronic deep vein thrombosis (DVT) of proximal vein of left lower extremity ([facility]); Gastroesophageal reflux disease without esophagitis; Hypothyroidism, unspecified type; Benign prostatic hyperplasia with urinary frequency; Mixed hyperlipidemia; Adjustment disorder with mixed anxiety and depressed mood; Cognitive impairment Social History Tobacco Use Types Packs/Day Years [...] Sign Reading Time Taken Comments Blood Pressure 118/70 04/25/2022 1550 EST Pulse 106 04/25/2022 1550 EST Temperature 36.9 ??C (98.4 ??F) 04/25/2022 1550 EST Respiratory Rate 18 04/25/2022 1550 EST Oxygen Saturation 93% 04/25/2022 1550 EST Inhaled Oxygen Concentration - - Weight - [...] documented in this encounter Progress Notes * Herman Horton, MALCOM - 04/25/2022 1530 EST Subjective: Patient ID: Jeff Scott is an 61 y.o. male. Chief Complaint Patient presents with ??? Hospital Discharge Follow Up HPI Jeff presents to the clinic today along with his son, Js. Jeff is here after a long hospitalization where he was inpatient at [facility] for nearly five months. This is after being previously admitted[facility] in [place] followed by [facility] for several months each respectively. Jeff was admitted to [facility] on 11/19 after multiple falls and the inability to care for himself at home. Js moved from [place] in order to be here to help his dad but unfortunately they had difficulty managing at home due to his poor mobility and chronic pain and he was subsequently brought to [facility] for evaluation. During his hospitalization he worked extensively with PT/OT. His mobility was initially limited by left hip pain secondary to severe osteoarthritis, poor balance due to his right BKA and deconditioning. He wasn't initially felt to be a candidate for left ELVIN (due to an elevated A1C at 8.5). His blood sugar control was optimized after he was placed on Trulicity 1.5mg SC Qweekly, along with metformin, insulin glargine QHS and lispro with meals. His A1C improved to 8.0 and orthopedics agreed to proceed with the left ELVIN while Jeff was hospitalized. He underwent a successful left ELVIN with Dr. Burroughs on 02/13/22. He continued to work with PT/OT following the ELVIN and demonstrated an improvement in his mobility and ability to perform ADLs. Psychology was consulted to help him cope with the anxiety around his prolonged stay and pending discharge. He was ultimately deemed stable and discharged to the [facility] by Pat in [place]. Jeff says he's doing well and he's happy to be be out of the hospital and back to living independently. His suite at the [facility] is nice and handicap accessible which he appreciates. Js has been very supportive and is helping him to manage day-to-day. He's using a pill organizer for his medications however Js is currently working with [facility] on setting up bubble packs. We reviewed his medications today in clinic. His left hip is feeling great and his mobility continues to improve. He is working with in-home PT,an in-home OT eval is still pending. He is using Tylenol 1g TID prn for hip pain but says this is mostly manageable. He does have some pain in his quad and hamstrings when transferring which he attributes to poor endurance/strength. He hasn't needed any prn robaxin or oxycodone. The incision is well-healed. He has a f/u with Dr. Burroughs tomorrow. He is using his walker at all times. We reviewed his diabetes and blood sugars in particular. Jeff says he hasn't been great about watching his diet since being discharged. His hotel has a free breakfast daily he's had trouble trying to avoid the waffles and pancakes with syrup. His fasting sugars have been around the 140s. He's had occasional lows into the 75-80 range. He had one day where his sugar went up to 300 after eating a large meal. He is checking his sugars TID. He remains on glargine 55 units at bedtime and lispro 18 units TID with meals. He is also still on metformin 1g BID. Seamus was d/c'd on discharge. He willbe due for an A1C check in two months. His mood is okay. He reports his bowels and bladder are working well. He hasn't had any falls sincehis discharge. He asks whether I think a Life Alert might be beneficial given his history of falls. Patient Active Problem List Diagnosis ??? Late effect of intracranial injury ??? Craniopharyngioma (HCC-CMS) ([facility]) ??? Memory loss due to medical condition ??? Hypothyroidism ??? Osteoarthritis of left hip ??? Acute osteomyelitis of phalanx of foot (HCC-CMS) ([facility]) ??? Type 2 diabetes mellitus with diabetic polyneuropathy, with long-term current use of insulin ([facility]) ([facility]) ??? Hyperplastic polyp of descending colon ??? Acute osteomyelitis of right ankle or foot (HCC-CMS) ([facility]) ??? Deep vein thrombosis (DVT) of proximal vein of left lower extremity, unspecified chronicity ([facility]) ([facility]) ??? Type 2 diabetes mellitus without complication, with long-term current use of insulin (HCC-CMS) (HCC) ??? 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 (HCC-CMS) (HCC) ??? Recurrent falls ??? Failure to thrive in adult ??? Primary osteoarthritis of left hip ??? Hx of BKA, right (HCC-CMS) (HCC) ??? Chronic deep vein thrombosis (DVT) of proximal vein of left lower extremity (HCC) ??? Hypothyroidism, unspecified type ??? Gastroesophageal reflux disease with esophagitis and hemorrhage ??? Benign prostatic hyperplasia, unspecified whether lower urinary tract symptoms present ??? Other chronic pain ??? Osteoarthritis of left hip, unspecified osteoarthritis type ??? Gait instability ??? Adjustment disorder with mixed anxiety and depressed mood ??? Anemia Past Medical History: Diagnosis Date ??? Anemia [...] History Tobacco Use ??? Smoking status: Never ??? Smokeless tobacco: Former Types: Chew Vaping Use ??? Vaping Use: [...] by mouth 2 times daily. 60 Tablet 0 ??? atorvastatin (LIPITOR) 20 mg tablet Take 1 Tablet by mouth daily. 30 Tablet 0 ??? bisacodyL (DULCOLAX) [address] [...] by mouth 3 times daily. 90 Capsule 0 ??? insulin aspart U-100 (NOVOLOG FLEXPEN) 100 unit/mL (3 mL) injectable pen Inject 18 Units into the skin 3 times daily with meals. 15 mL 0 ??? insulin glargine (LANTUS SOLOSTAR/SEMGLEE) 100 unit/mL (3 mL) injection pen Inject 55 Units into the skin at bedtime. 15 mL 0 ??? lancets Test BID. 100 Each 1 ??? levothyroxine (SYNTHROID) 112 mcg tablet Take 1 Tablet by mouth daily. 30 Tablet 0 ??? magnesium oxide (MAG-OX) 400 mg (241.3 mg magnesium) tablet Take 1 Tablet by mouth daily. 30 Tablet 0 ??? metFORMIN (GLUCOPHAGE) 500 mg tablet Take 2 Tablets by mouth 2 times daily with breakfast and dinner. 60 Tablet 0 ??? methocarbamoL (ROBAXIN) 500 mg tablet Take 1 Tablet by mouth every 8 hours as needed for Pain or Muscle Spasms. 42 Tablet 0 ??? oxyCODONE (ROXICODONE) 5 mg immediate release tablet Take 1 Tablet by mouth 2 times daily as needed for Pain. Daily Max: 10 mg 10 Tablet 0 ??? pantoprazole (PROTONIX) 40 mg tablet Take 1 Tablet by mouth daily before breakfast. 30 Tablet 0 ??? sertraline (ZOLOFT) 50 mg tablet Take 1 Tablet by mouth daily. 30 Tablet 0 ??? TAMSulosin (FLOMAX) 0.4 mg capsule Take 1 Capsule by mouth daily. 30 Capsule 0 No current facility-administered medications on file prior to visit. No Known Allergies Review of Systems Constitutional: Negative. Respiratory: Negative. Cardiovascular: Negative. Gastrointestinal: Negative. Genitourinary: Negative. Musculoskeletal: Right BKA, s/p left ELVIN Neurological: Negative. Psychiatric/Behavioral: Negative. - See HPI Objective: BP 118/70 Pulse (!) 106 Temp 36.9 ??C (98.4 ??F) Resp 18 SpO2 93% Physical Exam Constitutional: General: He is not in acute distress. Appearance: He is well-developed and well-nourished. He is not diaphoretic. HENT: Head: Normocephalic and atraumatic. Cardiovascular: Rate and Rhythm: Normal rate and regular rhythm. Heart sounds: Normal heart sounds. Pulmonary: Effort: Pulmonary effort is normal. No respiratory distress. Breath sounds: Normal breath sounds. No wheezing, rhonchi or rales. Abdominal: General: Bowel sounds are normal. There is no distension. Palpations: Abdomen is soft. Tenderness: There is no abdominal tenderness. Comments: Umbilical hernia noted Musculoskeletal: General: No edema. Cervical back: Neck supple. Comments: Right BKA, surgical incision over left lateral hip clean and well-healed Skin: General: Skin is warm and dry. Neurological: Mental Status: He is alert and oriented to person, place, and time. Psychiatric: Mood and Affect: Mood and affect normal. Behavior: Behavior normal. Thought Content: Thought content normal. Judgment: Judgment normal. Assessment/Plan: Jeff was seen today for hospital discharge follow up. Diagnoses and all orders for this visit: Type 2 diabetes mellitus with other circulatory complication, with long-term current use of insulin([facility]) -Recommended he continue checking his finger sticks TID with the goal of a FBS <130 w/o hypoglycemia and PPBG <180 -Reminded Jeff of the importance of watching his carbohydrates intake which he plans on working on -Discussed CGM systems like Dexcom or GleeMaster Hao, Jeff and Js with do some research into these and we could consider trying one in follow-up -Continue insulin glargine 55 units at HS, insulin lispro 18 units TID with meals and metformin 1g BID -Consider adding back Trulicity 1.5mg SC qweekly pending how his sugars continue to run -Recheck A1C in two months Hx of right BKA ([facility]) ([facility]) S/P total left hip arthroplasty -In terms of the ELVIN, he appears to be doing quite well -His pain is well-controlled with Tylenol alone, he hasn't needed the prn robaxin or oxycodone -He has had some muscle cramping in his left leg and I suggested that he could try the robaxin for this -The incision looks well-healed -He has a f/u with Dr. Burroughs tomorrow -Continue in-home PT for strengthening, endurance and balance -Recommended continuing to use his walker at all times with ambulation Recurrent falls -Related to hx of chronic left hip pain r/t severe OA, right BKA, deconditioning -Continue walker with all ambulation -Continue in-home PT/OT -I agree that a Life Alert would be a great option for Jeff, they'll talk with social work about trying to obtain one Failure to thrive in adult -Doing well thus far since his discharge -He has great support from his son Chronic deep vein thrombosis (DVT) of proximal vein of left lower extremity (HCC) -Continue Eliquis 5mg BID -Discussed the risk of increased bleeding and the importance of prompt eval for any falls, head trauma Gastroesophageal reflux disease without esophagitis -Continue pantoprazole 40mg QAM Hypothyroidism, unspecified type -Continue levothyroxine 112mcg every day -Check thyroid cascade next visit Benign prostatic hyperplasia with urinary frequency -Continue tamsulosin 0.4mg QHS Mixed hyperlipidemia -Continue atorvastatin 20mg every day -Due for lipids, can check at next visit Adjustment disorder with mixed anxiety and depressed mood -Appears to be in a good space emotionally -Continue sertraline 50mg QD Cognitive impairment -Has support from his son, Js -Js is currently working on obtaining bubble packs for his medications from [facility] -Follow-up in two months for A1C check, labs Herman Horton DNP documented in this encounter Plan of Treatment Not on file documented as of this encounter Visit Diagnoses Diagnosis Type 2 diabetes mellitus with other circulatory complication, with long-term current use of insulin (HCC-CMS)- Primary Hx of right BKA (HCC-CMS) Lower limb amputation, below knee S/P total left hip arthroplasty Recurrent falls Personal history of fall Failure to thrive in adult Adult failure to thrive Chronic deep vein thrombosis (DVT) of proximal vein of left lower extremity (HCC-CMS) Gastroesophageal reflux disease without esophagitis Esophageal reflux Hypothyroidism, unspecified type Benign prostatic hyperplasia with urinary frequency Mixed hyperlipidemia Adjustment disorder with mixed anxiety and depressed mood Cognitive impairment Unspecified persistent mental disorders due to conditions classified elsewhere documented in this encounter Care Teams Pediatric Occupational Therapist Relationship Specialty Start Date End Date Jason Batres MD [address] [place] [address] PCP - General 07/27/11 12/31/23 Alexus De La O, food beverage supervisor 04/18/22 08/13/23 documented as of this encounter
--- OUTSIDE RECORDS SUMMARY | 2024-02-28 16:42 | XMS_ITS | Encounter Summary ---
Author Organization [facility] Address [address] [place] [address] Care Team Providers Care Animal Handler Name Role Phone Jason Batres MD Primary Care Provi margarita Alexus De La O RN Unavailable Unavailable Reason for Visit * Reason Onset Date Comments Appointment Related 04/26/2022 Encounter Details Date Type Department Care Team (Late st Contact Info) Description 04/26/2022 Telephone [facility] Total Joint Program - [address] [address] Sachin Burroughs MD MSc FRC [address] [place] [phone] Appointment Related Social History Tobacco Use [...] Miscellaneous Notes * Telephone Encounter - Leslie Gonzales MA - 04/26/2022 1252 EST Jeff called today to reschedule his post op appt with Dr. 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 at [phone], I put this in his chart as work phone for now, he will let us know if/when this changes. documented in this encounter Plan of Treatment Not on file documented as of this encounter Visit Diagnoses Not on filedocumented in this encounter Care Teams Animal Handler Relationship Specialty Start Date End Date Jason Batres MD [address] [place] [address] PCP - General 07/27/11 12/31/23 Alexus De La O, repairing calibrator 04/18/22 08/13/23 documented as of this encounter
--- OUTSIDE RECORDS SUMMARY | 2024-02-28 16:42 | XMS_ITS | Encounter Summary ---
Author Organization [facility] Address [address] [place] [address] Care Team Providers Care Crown Blocker Name Role Phone Jason Batres MD Primary Care Provi margarita Alexus De La O RN [facility] Internal Medicine, Primary Care Provi margarita Reason for Visit * Reason Onset Date Comments Appointment Related 05/23/2022 Wound Care I nstructions Encounter Details Date Type Department Care Team (Late st Contact Info) Description 05/23/2022 Telephone [facility] Foot [facility] Ankle Program - [address] [address] Elie Betancourt DPM [address] [place] [phone] Appointment Related (Wound Care Instructions ) Social History Tobacco Use Types Packs/Day Years [...] Telephone Encounter - Herlinda Navarro LPN - 05/23/2022 1502 EDT Call back to Glenys to discuss wound care orders. Questions answered. HERLINDA NAVARRO LPN * Telephone Encounter - Tara Arita - 05/23/2022 1432 EDT Reason for Call: Appointment Related (Wound Care Instructions ) Summary: Glenys from [facility] called and would like a call back to discuss wound orders for patient's heel (nurse recommendations, which may have been before seeing Dr. Betancourt, vs what their nurse had recommended. Appointment Offered? N/A Tara Arita 05/23/2022 14:33 documented in this encounter Plan of Treatment Not on file documented as of this encounter Visit Diagnoses Not on filedocumented in this encounter Care Teams Crown Blocker Relationship Specialty Start Date End Date Jason Batres MD [address] [place] [address] PCP - General 07/27/11 12/31/23 [facility] Internal Medicine, Mp [address] [place] [address] PCP - General 01/01/24 Alexus De La O, psychological aide 04/18/22 08/13/23 documented as of this encounter
--- OUTSIDE RECORDS SUMMARY | 2024-02-28 16:42 | XMS_ITS | Encounter Summary ---
Author Organization [facility] Address [address] [place] [address] Care Team Providers Care Groundskeeping Maintenance Name Role Phone Jason Batres MD Primary Care Provi margarita Alexus De La O RN [facility] Internal Medicine, Primary Care Provi margarita Reason for Visit * Reason Onset Date Comments [facility] 04/24/2022 Encounter Details Date Type Department Care Team (Late st Contact Info) Description 04/24/2022 Telephone Terry Batres MD [address] [address] Jason Batres MD [address] [place] [phone] [facility]) Social History [...] * Telephone Encounter - Keyla Rhodes - 04/24/2022 0829 EST Message left on 04/21 that pt will be getting PT from [facility] 2x/wk x 4 wks for strengthening. documented in this encounter Plan of Treatment Not on file documented as of this encounter Visit Diagnoses Not on filedocumented in this encounter Care Teams Groundskeeping Maintenance Relationship Specialty Start Date End Date Jason Batres MD [address] [place] [address] PCP - General 07/27/11 12/31/23 [facility] Internal Medicine, Mp [address] [place] [address] PCP - General 01/01/24 Alexus De La O, cook soup 04/18/22 08/13/23 documented as of this encounter
--- OUTSIDE RECORDS SUMMARY | 2024-02-28 16:42 | XMS_ITS | Encounter Summary ---
Author Organization [facility] Address [address] [place] [address] Care Team Providers Care Cafeteria Table Attendant Name Role Phone Jason Batres MD Primary Care Provi margarita Reason for Visit * Reason Onset Date Comments Follow-up 11/16/2021 hospital dischar ge Encounter Details Date Type Department Care Team (Late st Contact Info) Description 11/16/2021 Telephone Jason Batres MD, PC [address] [place] [address] Jason Batres MD [address] [place] [phone] Follow-up (hospital discharge) Social History Tobacco Use Types Packs/Day Years [...] Telephone Encounter - Jason Batres MD - 11/16/2021 1424 EDT Jeff has been at a facility in [place] and an MD there has been caring for him. So I have not received anything recently. It's been over a year since I have seen him. In fact I have not seen any notes from [facility]- can we get those notes faxed to the office. Jason Batres MD * Telephone Encounter - Tangela Garrett - 11/16/2021 1403 EDT Pt's son LM stating pt was discharged from [facility] and he has questions. Pt has a f/u appointment scheduled for next week. I called pt's son back but got disconnected from him. TANGELA SALVADOR MA documented in this encounter Plan of Treatment Not on file documented as of this encounter Visit Diagnoses Not on filedocumented in this encounter Care Teams Cafeteria Table Attendant Relationship Specialty Start Date End Date Jason Batres MD [address] [place] [address] PCP - General 07/27/11 12/31/23 documented as of this encounter
--- OUTSIDE RECORDS SUMMARY | 2024-02-28 16:42 | XMS_ITS | Encounter Summary ---
Author Organization [facility] Address [address] [place] [address] Care Team Providers Care Watch Technician Name Role Phone Jason Batres MD Primary Care Provi margarita Reason for Visit * Reason Onset Date Comments Medication Management 11/17/2021 Encounter Details Date Type Department Care Team (Late st Contact Info) Description 11/17/2021 Telephone Jason Batres MD, PC [address] [place], [place] [phone] Jason Batres MD [address] [place] [phone] Medication Management Social History Tobacco Use Types Packs/Day [...] encounter Miscellaneous Notes * Telephone Encounter - Caitlyn Parker - 11/17/2021 1350 EDT Spoke to pt's son who has several questions and concerns regarding pt's medications and overall health. Pt was recently discharged from [facility]. We had them fax over the notes yesterday, they should be on Dr. Batres's desk. Pt's son had several more urgent questions regarding medications that I could not answer. Pt's son says that they only have about 7 out 30 medicatioms in the home that the pt is actively taking. I scheduled pt with Carmelita tomorrow to go over medications and get them sorted. Pt also has ED f/u with Dr. Batres next Sunday. Pt's son also requesting referral to home health be placed, he is hoping that they will be able to start on Sunday. CAITLYN PARKER MA documented in this encounter Plan of Treatment Not on file documented as of this encounter Visit Diagnoses Not on filedocumented in this encounter Care Teams Watch Technician Relationship Specialty Start Date End Date Jason Batres MD [address] [place] [address] PCP - General 07/27/11 12/31/23 documented as of this encounter
--- OUTSIDE RECORDS SUMMARY | 2024-02-28 16:42 | XMS_ITS | Encounter Summary ---
Author Organization [facility] Address [address] [place] [address] Care Team Providers Care Fern Picker Name Role Phone Jason Batres MD Primary Care Provi margarita Alexus De La O RN [facility] Internal Medicine, Primary Care Provi margarita Reason for Visit * Reason Onset Date Comments Home Health 05/18/2022 PT Encounter Details Date Type Department Care Team (Late st Contact Info) Description 05/18/2022 Telephone [facility], [address] [facility] [address] [place] [address] Constance Mix, JARVIS Home Health (PT) Social History Tobacco Use Types Packs/Day Years [...] Telephone Encounter - Constance Mix RN - 05/18/2022 1513 EDT Message left from [facility] PT. Pt was re evaluated today and they will be continuing home PT for 1-2 visits per week x 4 weeks. CONSTANCE MIX RN documented in this encounter Plan of Treatment Not on file documented as of this encounter Visit Diagnoses Not on filedocumented in this encounter Care Teams Fern Picker Relationship Specialty Start Date End Date Jason Batres MD [address] [place] [address] PCP - General 07/27/11 12/31/23 [facility] Internal Medicine, [address] [place] [address] PCP - General 01/01/24 Alexus De La O, trashman 04/18/22 08/13/23 documented as of this encounter
--- OUTSIDE RECORDS SUMMARY | 2024-02-28 16:42 | XMS_ITS | Encounter Summary ---
Author Organization [facility] Address [address] [place] [address] Care Team Providers Care Cloth Baler Name Role Phone Jason Batres MD Primary Care Provi margarita Alexus De La O RN Unavailable Unavailable Reason for Referral * Referral (Urgent) - Specialty Report Received Specialty Diagnoses / Procedures Referred By [facility] Referred To Contact Diagnoses Pressure injury of skin of left heel, unspecified injury stage Jason Batres MD Phone: tel: fax: [facility], [address] [address] Phone: tel: fax: Referral ID Status Reason Start Date Expiration Date Visits Requested Visits Authorized [id number] Specialty Report Received Specialty Services Required 05/15/2022 1 1 Question Answer I certify that this patient is under my care and that I, or another Medicare allowed practitioner (DO KEN, VARGHESE) working with me, had a [id number] encounter with this patient on this date: 04/25/2022 The discharge summary or progress note will provide further details that support the need for the home health services and the plan of care. Yes Enter the allowed practitioner (DO KEN, VARGHESE) who will provide oversight of this patient's home heatlh care needs and plan of care Terry Batres The patient? s homebound status is related to the following diagnoses, illness or condition (describe): diabetic neuropathy with diabetic foot ulcer The patient has a condition due to an illness or injury that restricts the ability to leave home except with: Assistive device, The assistance or supervision of another person Assistive device Walker Leaving the home is medically contraindicated due to (reason 1): High risk of infection due to immune compromise Leaving home requires a considerable and taxing effort with mobility limited by the following (criteria 1): Other Please Specify: risk of falls and infection of his foot Nursing skilled care requested: Wound care Care Home Referral - Wound Care: (Please include care and frequency.) Pressure Ulcer Number of Wound/Dressing Sites: 1 Wound/Dressing Location Site 1 Heel Wound/Dressing Orientation Site 1 Posterior Dressing Type Site 1 Moist to Dry Cleanse Wound Site 1 Normal saline Associated Medications Site 1 (Please make sure you also place separate order) Not Applicable Contact Layer Site 1 4 X 4 Middle Layer Site 1 Not Applicable Outside Layer Site 1 Kerlix Adhesive Site 1 Not Applicable Encounter Details Date Type Department Care Team (Late st Contact Info) Description 05/15/2022 Orders Only Jason Batres MD, PC [address] [place] [address] Jason Batres MD [address] [place] [phone] Pressure injury of skin of left heel, unspecified injury stage (Primary Dx) Social History Tobacco Use Types [...] Scheduled Referrals Name Type Priority Associated Diagnoses Orde r Schedule AMB CONS/FOLLOW UP HOME HEALTH SERVICES Outpatient Referral Urgent Pressure injury of skin of left heel, unspecified injury stage Expected: 05/17/2022 (Approximate), Expires: 05/16/2023 documented as of this encounter Visit Diagnoses Diagnosis Pressure injury of skin of left heel, unspecified injury stage- Primary documented in this encounter Care Teams Cloth Baler Relationship Specialty Start Date End Date Jason Batres MD [address] [place] [address] PCP - General 07/27/11 12/31/23 Alexus De La O, donations attendant 04/18/22 08/13/23 documented as of this encounter
--- OUTSIDE RECORDS SUMMARY | 2024-02-28 16:42 | XMS_ITS | Encounter Summary ---
Author Organization [facility] Address [address] [place] [address] Care Team Providers Care Seat Trimmer Name Role Phone Jason Batres MD Primary Care Provi margarita Edmundo De La O RN Unavailable Unavailable Encounter Details Date Type Department Care Team (Late st Contact Info) Description 04/18/2022 Patient Outreach Jason Batres MD, PC [address] [place], [place] [id number] Edmundo De La O RN Social History [...] Edmundo De La O RN - 04/18/2022 1427 EST [facility] Key Account Director Care Coordination ?? marine services technician spoke with [facility] on 04/18/22 in order to coordinate care for Jeff Scott. ?? Confirmed that Jeff is on service with [facility] for [facility] starting today. [facility] has the correct address for Jeff. ?? [facility] options counselor will reach out to Js, Jeff's son, to schedule intake appointment to discuss community resources for Jeff. ?? [facility] application for bubble packs is on line and may be filled out on line or on paper. ?? Advised Js about [facility] application and how to access this. ?? Js said he has access to a computer and can start the application for bubble packs. Advised Js to bring bubble pack application to follow up visit with Dr. Batres for competion. PLAN: Follow up in 1 week. EDMUNDO DE LA O RN 04/18/2022 14:27 documented in this encounter Plan of Treatment Not on file documented as of this encounter Visit Diagnoses Not on filedocumented in this encounter Care Teams Seat Trimmer Relationship Specialty Start Date End Date Jason Batres MD [address] [place] [address] PCP - General 07/27/11 12/31/23 Edmundo De La O, marine services technician 04/18/22 08/13/23 documented as of this encounter
--- OUTSIDE RECORDS SUMMARY | 2024-02-28 16:42 | XMS_ITS | Encounter Summary ---
Author Organization [facility] Address [address] [place] [address] Care Team Providers Care Electrician Rectifier Maintenance Name Role Phone Jason Batres MD Primary Care Provi margarita Alexus De La O RN Unavailable Unavailable Reason for Visit * Reason Onset Date Comments Blood Sugar Problem 05/02/2022 Encounter Details Date Type Department Care Team (Late st Contact Info) Description 05/02/2022 Telephone Terry Batres MD [address] [address] Jason Batres MD [address] [place] [phone] Blood Sugar Problem Social History Tobacco Use Types Packs/Day [...] place to sleep or slept in a retirement (including now)? No 05/02/2022 Interpersonal Safety Answer [...] Telephone Encounter - Jason Batres MD - 05/02/2022 1348 EST Reviewed and agree with above Jason Batres MD * Telephone Encounter - Tangela Garrett - 05/02/2022 1059 EST Pt called office to discuss what he should do if his blood sugars get low and what sx to look out for. This MA educated pt on common sx such as sweating, fatigue, increased HR, hunger, fainting, vision changes, etc. Also went over foods pt can eat when blood sugars are low; fruits, complex-carbs, juice, hard candies, etc. Pt states his blood sugars never get below 60 mg/dl. Pt is aware to seek medical care if sugars drop too low or if he is symptomatic with no improvement. TANGELA SALVADOR MA documented in this encounter Plan of Treatment Not on file documented as of this encounter Visit Diagnoses Not on filedocumented in this encounter Care Teams Electrician Rectifier Maintenance Relationship Specialty Start Date End Date Jason Batres MD [address] [place] [address] PCP - General 07/27/11 12/31/23 Alexus De La O, mimeograph operator 04/18/22 08/13/23 documented as of this encounter
--- OUTSIDE RECORDS SUMMARY | 2024-02-28 16:42 | XMS_ITS | Encounter Summary ---
Author Organization [facility] Address [address] [place] [address] Care Team Providers Care Bed Laborer Name Role Phone Jason Batres MD Primary Care Provi margarita Alexus De La O RN Unavailable Unavailable Encounter Details Date Type Department Care Team (Late st Contact Info) Description 04/19/2022 Patient Outreach Jason Batres MD, PC [address] [place], [place] [phone] Odette Hector, [facility] [address] [place] [address] Social History Tobacco Use Types Packs/Day Years [...] Yes 11/20/2021 20:00 EDChelsea Martinez RN * Because of a physical, mental, [...] documented in this encounter Progress Notes * Odette Hector LICSW - 04/19/2022 1016 EST Per request of Omaira BOYER. Sent Jeff's son, Es Weinstein's list of licensed facilities/assisted living. Js confirms receipt and will let this social services technician know if he has questions and/or if he would like to schedule a phone call with this social services technician. JG PELAEZ documented in this encounter Plan of Treatment Not on file documented as of this encounter Visit Diagnoses Not on filedocumented in this encounter Care Teams Bed Laborer Relationship Specialty Start Date End Date Jason Batres MD [address] [place] [address] PCP - General 07/27/11 12/31/23 Alexus De La O RN Care Manager 04/18/22 08/13/23 documented as of this encounter
--- OUTSIDE RECORDS SUMMARY | 2024-02-28 16:42 | XMS_ITS | Encounter Summary ---
Author Organization [facility] Address [address] [place] [address] Care Team Providers Care Lining Maker Name Role Phone Jason Batres MD Primary Care Provi margarita Alexus De La O RN Unavailable Unavailable Reason for Visit * Reason Onset Date Comments Wound Care 05/17/2022 Encounter Details Date Type Department Care Team (Late st Contact Info) Description 05/17/2022 Telephone Terry Batres MD [address] [address] Jason Batres MD [address] [place] [phone] Wound Care Social History Tobacco Use [...] of Assessment Author Yes 11/20/2021 20:00 Chelsea Kown RN * Do you have difficulty dressing [...] * Telephone Encounter - Tangela Garrett - 05/17/2022 0811 EDT Jessica from [facility] stating pt has been doing dry dressing changes for his pressure injury that opened. Pt is supposed to be changing the dressing multiple times per day. However, due to lack of support of caregivers and pt's inability to reach the area, pt has not been able to change dressings. Pt reports the dressing is getting stuck to the wound bed and is pulling at the skin. A nurse will begoing over today to take pictures for the wound care nurse. They may need to apply a different dressing that requires less dressing changes. They will send over orders. TANGELA SALVADOR MA documented in this encounter Plan of Treatment Not on file documented as of this encounter Visit Diagnoses Not on filedocumented in this encounter Care Teams Lining Maker Relationship Specialty Start Date End Date Jason Batres MD [address] [place] [address] PCP - General 07/27/11 12/31/23 Alexus De La O, line up worker 04/18/22 08/13/23 documented as of this encounter
--- OUTSIDE RECORDS SUMMARY | 2024-02-28 16:42 | XMS_ITS | Encounter Summary ---
Author Organization [facility] Address [address] [place] [address] Care Team Providers Care Bracelet Maker Novelty Name Role Phone Jason Batres MD Primary Care Provi margarita Alexus De La O RN [facility] Internal Medicine, Primary Care Provi margarita Reason for Visit * Reason Onset Date Comments Appointment Related 04/26/2022 Encounter Details Date Type Department Care Team (Late st Contact Info) Description 04/26/2022 Telephone [facility] Hand & Upper Extremity Program - [address] [address] Sachin Burroughs MD MSc [address] [phone] Appointment Related Social History Tobacco Use [...] encounter Miscellaneous Notes * Telephone Encounter - Tonia Vargas - 04/26/2022 0937 EST Patient is calling as he is unable to come to his post op appointment today because [facility] left without him. Please advise for rescheduling. Thank you! Please call the [facility] [address]. They will transfer the call to his room. documented in this encounter Plan of Treatment Not on file documented as of this encounter Visit Diagnoses Not on filedocumented in this encounter Care Teams Bracelet Maker Novelty Relationship Specialty Start Date End Date Jason Batres MD [address] [place] [address] PCP - General 07/27/11 12/31/23 [facility] Internal Medicine, [place] [address] [place] [address] PCP - General 01/01/24 Alexus De La O, city library director 04/18/22 08/13/23 documented as of this encounter
--- OUTSIDE RECORDS SUMMARY | 2024-02-28 16:42 | XMS_ITS | Encounter Summary ---
Author Organization [facility] Address [address] [place] [address] Care Team Providers Care Law Librarian Name Role Phone Jason Batres MD Primary Care Provi margarita Alexus De La O RN Unavailable Unavailable Encounter Details Date Type Department Care Team (Latest Contact Info) Description 05/14/2022 Travel Social History Tobacco Use Types Packs/Day Years [...] of Assessment Author No 11/20/2021 20:00 EDT Chlesea Nair RN * Do you have serious [...] on filedocumented in this encounter Care Teams Law Librarian Relationship Specialty Start Date End Date Jason Batres MD [address] [place] [address] PCP - General 07/27/11 12/31/23 Alexus De La O, casino floorperson 04/18/22 08/13/23 documented as of this encounter
--- OUTSIDE RECORDS SUMMARY | 2024-02-28 16:42 | XMS_ITS | Encounter Summary ---
Author Organization [facility] Address [address] [place] [address] Care Team Providers Care Clock And Watch Hands Dipper Name Role Phone Jason Batres MD Primary Care Provi margarita Encounter Details Date Type Department Care Team (Late st Contact Info) Description 11/21/2021 Patient Outreach Jason Batres MD, PC [address] [place], [place] [phone] Odette Hector, [employer] AND FIELD OPERATOR [address] [place] [address] Social History Tobacco Use Types Packs/Day Years [...] Progress Notes * Odette Hector LICSW - 11/21/2021 1244 EDT Brief phone call with patient's son, Js ([phone]), in response to urgent social work childcare director referral. Js reports his father is in the hospital. He is in contact with his father's inpatient team as well as his [facility] Wet Machine Cutter. JG PELAEZ documented in this encounter Plan of Treatment Not on file documented as of this encounter Visit Diagnoses Not on filedocumented in this encounter Care Teams Clock And Watch Hands Dipper Relationship Specialty Start Date End Date Jason Batres MD [address] [place] [address] PCP - General 07/27/11 12/31/23 documented as of this encounter
--- OUTSIDE RECORDS SUMMARY | 2024-02-28 16:42 | XMS_ITS | Encounter Summary ---
Author Organization [facility] Address [address] [place] [address] Care Team Providers Care Seam Rubbing Machine Operator Name Role Phone Jason Batres MD Primary Care Provi margarita Encounter Details Date Type Department Care Team (Latest Contact Info) Description 11/19/2021 Travel Social History Tobacco Use Types Packs/Day [...] David Dougherty RN documented in this encounter Plan of Treatment Not on file documented as of this encounter Visit Diagnoses Not on filedocumented in this encounter Care Teams Seam Rubbing Machine Operator Relationship Specialty Start Date End Date Jason Batres MD [address] [place] [address] PCP - General 07/27/11 12/31/23 documented as of this encounter
--- OUTSIDE RECORDS SUMMARY | 2024-02-28 16:42 | XMS_ITS | Encounter Summary ---
Author Organization [facility] Address [address] [place] [address] Care Team Providers Care Delivery Consultant Name Role Phone Jason Batres MD Primary Care Provi margarita Encounter Details Date Type Department Care Team (Late st Contact Info) Description 04/07/2022 Orders Only [facility] Physical Medicine & Rehabilitation - [address] [place] [address] Arianne Gonzalez MD [address] [place] [address] Below-knee amputation of right lower [...] extremity (HCC-CMS)- Primary documented in this encounter Orders Equipment Count Last Ordered Date First Orde red Date GENERIC DME ORDER 1 04/07/2022 documented in this encounter Care Teams Delivery Consultant Relationship Specialty Start Date End Date Jason Batres MD [address] [place] [address] PCP - General 07/27/11 12/31/23 documented as of this encounter
--- OUTSIDE RECORDS SUMMARY | 2024-02-28 16:42 | XMS_ITS | Encounter Summary ---
Author Organization [facility] Address [address] [place] [address] Care Team Providers Care Roll Trucker Name Role Phone Jason Batres MD Primary Care Provi margarita Alexus De La O RN Unavailable [facility] Internal Medicine, Primary Care Provi margarita Reason for Referral * PT/OT/ST (Routine/Next Available) - Closed Specialty Diagnoses / Procedures [facility] Referred To Contact Diagnoses Left hip pain Sachin Burroughs MD MSc [facility] Phone: tel: fax: Referral ID Status Reason Start Date Expiration Date V isits Requested Visits Authorized [id number] Closed Specialty Services Required 03/20/2022 1 1 Question Answer Surgery (and Date): 02.13.22 Reason for Request: Left Posterior Total Hip Arthroplasty Comments Evaluate and treat using post-op protocol All modalities accepted, AT/OT/PT ATC services if available and appropriate. Reason for Visit * Reason Onset Date Comments Hip Pain 03/20/2022 Encounter Details Date Type Department Care Team (Late st Contact Info) Description 03/20/2022 Orders Only [facility] Total Joint Program - [address] [place] [address] Sachin Burroughs MD [facility] [address] [place] [phone] Left hip pain (Primary Dx) Social [...] Referral Routine/Next Available Left hip pain Expected: 03/27/2022 (Approximate), Expires: 03/20/2023 documented as of this encounter Visit Diagnoses Diagnosis Left hip pain- Primary Pain in joint, pelvic region and thigh documented in this encounter Additional Health Concerns Infection Onset Date Last Indicated Resolved Time R/O COVID-19 04/09/2022 04/09/2022 04/09/2022 16:3 2 EST documented as of this encounter Care Teams Roll Trucker Relationship Specialty Start Date End Date Jason Batres MD [address] [place] [address] PCP - General 07/27/11 12/31/23 [facility] Internal Medicine, [address] [place] [address] PCP - General 01/01/24 Alexus De La O RN Care Manager 04/18/22 08/13/23 documented as of this encounter
--- OUTSIDE RECORDS SUMMARY | 2024-02-28 16:42 | XMS_ITS | Encounter Summary ---
Author Organization [facility] Address [address] [place] [address] Care Team Providers Care Jar Filler Name Role Phone Jason Batres MD Primary Care Provi margarita Edmundo De La O RN Unavailable Unavailable Encounter Details Date Type Department Care Team (Late st Contact Info) Description 04/27/2022 Patient Outreach Jason Batres MD, PC [address] [place], [place] [address] Edmundo De La O RN Social History [...] Edmundo De La O RN - 04/27/2022 1321 EST [facility] Care Management Initial Assessment and Care Plan Referral Reason: hospital discharge follow up after long hospitalization, and inability to care forhimself at home in the recent past. 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 ?? Following his BKA, the patient required higher level of care and was at [facility] since Jan 2021 until he was removed from the facility a couple of months prior to admission dueto lack of insurance and a large outstanding bill. He was admitted to [facility] and treated for a recentGIB until 11/17 when a family meeting was held and he was told he would need to pay $1000/day or discharge home with family. The patient was unable to afford the cost and was discharged home. His son moved from [place] to help take care of him, but due to his limited mobility he was unable to manage athome and was brought to [facility] on 11/19. Patient Care Team: Jason Batres MD as PCP - General Edmundo De La O, RN as Stamping Mill Tender Medications: Current Outpatient Medications: ??? acetaminophen (TYLENOL) 500 mg tablet, Take 2 Tablets by mouth every 6 hours., Disp: 240 Tablet, Rfl: 0 ??? apixaban (ELIQUIS) 5 mg tablet, Take 1 Tablet by mouth 2 times daily., Disp: 60 Tablet, Rfl: 0 ??? atorvastatin (LIPITOR) 20 mg tablet, Take 1 Tablet by mouth daily., Disp: 30 Tablet, Rfl: 0 ??? bisacodyL (DULCOLAX) 10 mg suppository, Place 1 Suppository rectally as needed for Constipation., Disp: 30 Each, Rfl: 0 ??? blood glucose (FREESTYLE TEST) test strips, 1 Strip by misc (non-drug; combo route) route 3 times daily., Disp: 100 Each, Rfl: 0 ??? blood glucose meter (FREESTYLE FREEDOM LITE), Test FS BID., Disp: 1 Each, Rfl: 0 ??? blood glucose test strips, 1 Strip by misc (non-drug; combo route) route 4 times daily. One touch verio flex, Disp: 100 Each, Rfl: 2 ??? cholecalciferol, Vitamin D3, 50 mcg (2,000 unit) tablet, Take 1 Tablet by mouth at bedtime., Disp: 30 Tablet, Rfl: 0 ??? FREESTYLE FREEDOM LITE, Use as directed as needed (glucose monitoring)., Disp: 1 Each, Rfl: 0 ??? gabapentin (NEURONTIN) 300 mg capsule, Take 1 Capsule by mouth 3 times daily., Disp: 90 Capsule, Rfl: 0 ??? insulin aspart U-100 (NOVOLOG FLEXPEN) 100 unit/mL (3 mL) injectable pen, Inject 18 Units into the skin 3 times daily with meals., Disp: 15 mL, Rfl: 0 ??? insulin glargine (LANTUS SOLOSTAR/SEMGLEE) 100 unit/mL (3 mL) injection pen, Inject 55 Units into the skin at bedtime., Disp: 15 mL, Rfl: 0 ??? lancets, Test BID., Disp: 100 Each, Rfl: 1 ??? levothyroxine (SYNTHROID) 112 mcg tablet, Take 1 Tablet by mouth daily., Disp: 30 Tablet, Rfl: 0 ??? magnesium oxide (MAG-OX) 400 mg (241.3 mg magnesium) tablet, Take 1 Tablet by mouth daily., Disp: 30 Tablet, Rfl: 0 ??? metFORMIN (GLUCOPHAGE) 500 mg tablet, Take 2 Tablets by mouth 2 times daily with breakfast and dinner., Disp: 60 Tablet, Rfl: 0 ??? methocarbamoL (ROBAXIN) 500 mg tablet, Take 1 Tablet by mouth every 8 hours as needed for Pain or Muscle Spasms., Disp: 42 Tablet, Rfl: 0 ??? oxyCODONE (ROXICODONE) 5 mg immediate release tablet, Take 1 Tablet by mouth 2 times daily as needed for Pain. Daily Max: 10 mg, Disp: 10 Tablet, Rfl: 0 ??? pantoprazole (PROTONIX) 40 mg tablet, Take 1 Tablet by mouth daily before breakfast., Disp: 30 Tablet, Rfl: 0 ??? sertraline (ZOLOFT) 50 mg tablet, Take 1 Tablet by mouth daily., Disp: 30 Tablet, Rfl: 0 ??? TAMSulosin (FLOMAX) 0.4 mg capsule, Take 1 Capsule by mouth daily., Disp: 30 Capsule, Rfl: 0 CM reviewed medication list in the chart Living Arrangement: Lives alone at [facility] in [place]. His son Js is living nearby and is handling all care coordination Social Supports: Son Js is very supportive. He moved from [place] to help care for Davi. Activities requiring assistance: None, Js says Davi is independent with ADL's using the DME equipment he has. Current plan for assistance with ADLs: not applicable Hearing/Vision: wears glasses Cognitive Function: No cognitive impairment identified and memory impairment Health literacy Assessment: patient with limited ability to read/write Social Determinants of Health: SDOH screen completed during visit: Yes Food Insecurity: Not on file Financial Resource Strain: Not on file Housing Stability: Not on file Transportation Needs: Not on file Depression: Not on file Alcohol Use: Not on file Tobacco Use: Medium Risk ??? Smoking Tobacco Use: Never ??? Smokeless Tobacco Use: Former ??? Passive Exposure: Not on file Healthcare Insurance: Payer/Plan Subscr Sex Relation Sub. Ins. ID Effective Group Num 1. [facility] - * BHAVIN NARVAEZ 1960 Female Spouse [id number]* 09/[birth year]/18 [id number] [address] 2. MEDICARE ACO * DAVI NARVAEZ F 1960 Male Self [id number] 03/05/20 [address] DME: Bariatric walker with basket, bariatric commode, tub bench, Sheep Sorter/ sock aid,, dressing stick, shoe horn DME vendor: [employer] Barriers to using technology: unable to use telehealth and unable to text Need for Caregiver Resources: caregiver currently provides assistance Cultural, spiritual or language factors affecting health: none identified Existing Community Resources: Age Well options counselor, MOW, [facility] bubble packs, CHANI Beck for support with assisted living facilities, [facility]: PT, OT, SW, weekly Gaps in Resources Identified: needs support with Medicaid application. Will refer to Acid Supervisor. Advance Directive on File: health care treatment directive Assessment/Clinical Summary: Js reports that he has the paperwork for [facility], but he hasn't set up bubble packs yet because of complex finances. Davi is going through divorce and will soon have his own credit card, and will need to establish his own insurance. Js says Davi is doing well at this time, with all the support that is in place. He says Davi's blood glucose is running 70-180, Davi is able to cook, and care for himself. Js requests support for obtaining Medicaid Insurance: referred to human resources advisor Woody Griffiths. Prioritized Patient Identified Goals: 1. Take Medications as directed daily 2. Patient will test blood glucose 3 times daily before meals. Plan Follow up in 6 weeks EDMUNDO DE LA O RN 04/27/2022 13:21 documented in this encounter Plan of Treatment Not on file documented as of this encounter Visit Diagnoses Not on filedocumented in this encounter Care Teams Jar Filler Relationship Specialty Start Date End Date Jason Batres MD [address] [place] [id number] PCP - General 07/27/11 12/31/23 Edmundo De La O RN Care Manager 04/18/22 08/13/23 documented as of this encounter
--- OUTSIDE RECORDS SUMMARY | 2024-02-28 16:43 | XMS_ITS | Encounter Summary ---
Author Organization [facility] Address [address] [place] [address] Care Team Providers Care Digester Capper Name Role Phone Jason Batres MD Primary Care Provi margarita Reason for Visit * Reason Comments Follow-up Encounter Details Date Type Department Care Team (Late st Contact Info) Description 02/07/2021 14:20 EST Office Visit [facility] Hematology & Oncology - [address] [phone] Millie Landeros NP [address] [facility], [address] [place] [address] Deep vein thrombosis (DVT) of proximal vein of left lower extremity, unspecified chronicity (HCC-CMS) (HCC) (Primary Dx) Social History Tobacco Use Types [...] Sign Reading Time Taken Comments Blood Pressure 117/77 02/07/2021 1421 EST Pulse 107 02/07/2021 1421 EST Temperature 36.3 ??C (97.3 ??F) 02/07/2021 1421 EST Respiratory Rate 16 02/07/2021 1421 EST Oxygen Saturation 96% 02/07/2021 142 EST Inhaled Oxygen Concentration - - Weight [...] No 12/23/2020 22:00 EDT Nickie Murillo RN documented as of this encounter Mental Status * Because of a physical, mental, or emotional condition, do you have serious difficulty concentrating, remembering, or making decisions? (5 years old or older) Answer Entry Date Author Yes 12/23/2020 22:00 EDT Nickie Murillo RN documented in this encounter Patient Instructions * Patient Instructions* Millie aLnderos APRN - 02/07/2021 14:20 EST Continue Eliquis 5 mg twice a day Follow-up in 6 months documented in this encounter Progress Notes * Millie Landeros PATTERNMAKER METAL BENCH - 02/07/2021 1420 EST Thrombosis & Hemostasis Program (THP) Follow Up Visit Date of Service: 02/07/2021 Reason for Visit: follow-up for unprovoked DVT Problem List: Patient Active Problem List Diagnosis ??? Deep vein thrombosis (DVT) of proximal vein of left lower extremity, unspecified chronicity (HCC-CMS) ([facility]) ??? Type 2 diabetes mellitus without complication, with long-term current use of insulin (HCC-CMS) ([facility]) ??? Hyperplastic polyp of descending colon ??? Type 2 diabetes mellitus with diabetic polyneuropathy, with long-term current use of insulin (HCC-CMS) ([facility]) ??? Acute osteomyelitis of phalanx of foot (HCC-CMS) ([facility]) ??? Hypothyroidism ??? 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 (HCC-CMS) ([facility]) Added automatically from request for surgery [id number] ??? Acute osteomyelitis of right ankle or foot (HCC-CMS) ([facility]) Added automatically from request for surgery [id number] ??? Osteoarthritis of left hip ??? 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 Late effect of intracranial injury ([facility]) IMO Update Auto Replacement Subjective: Severe L hip pain, no LE edema. Recent R BKA due to osteomyelitis and draining ulceration. Continues apixaban 5 mg BID without bleeding complications. Minimal sensation in left toes. Denies SOB, chest pain, dizziness, fever. Currently at [facility]. Using for mobility. ROS: I completed a 10 point review of systems which is documented on the follow up visit form scanned into YuanV. Pertinent positives and negatives are mentioned above. Social History: Patient reports that he has never smoked. He has quit using smokeless tobacco. His smokeless tobacco use included chew. He reports that he does not drink alcohol and does not use drugs. Medications: Dimethicone-Zinc Oxide, TAMSulosin, acetaminophen, apixaban, ascorbic acid (vitamin C), atorvastatin, bisacodyL, blood glucose, blood glucose meter, cholecalciferol (Vitamin D3), diclofenac sodium, gabapentin, insulin aspart U- 100, insulin glargine, lancets, levothyroxine, lidocaine 5 %, methocarbamoL, morphine, polyethylene glycol 3350, senna, and zinc oxide Allergies: Patient has No Known Allergies. Physical Exam: Vitals: 02/07/21 1421 BP: 117/77 Pulse: (!) 107 Resp: 16 Temp: 36.3 ??C (97.3 ??F) TempSrc: Skin SpO2: 96% Estimated body mass index is 33.65 kg/m?? as calculated from the following: Height as of 12/29/20: 185.4 cm (73). Weight as of 12/29/20: 115.7 kg (255 lb 1.2 oz). General: Alert and cooperative. In moderate distress due to left hip pain. Breathing is non-labored. Confined to WC. Extremities: R: BKA Is bandaged. Dressing is CDI. No streaking or edema above dressing. L: left leg is without edema or tenderness of calf compression. Labs: Basic Metabolic Panel Lab Results Component Value Date NA 140 01/20/2021 K 4.3 01/20/2021 CL 104 01/20/2021 CO2 26 01/20/2021 BUN 20 01/20/2021 CREATININE 0.64 (L) 01/20/2021 CALCGFR 107 01/20/2021 CALCIUM 9.2 01/20/2021 CALCCA 9.4 12/26/2020 MG 2.0 10/04/2019 PHOS 3.8 10/04/2019 Complete Blood Count Lab Results Component Value Date ABO A 12/28/2020 WBC 11.13 (H) 01/20/2021 WBC 11.96 (H) 01/17/2021 WBC 9.80 01/14/2021 RBC 3.29 (L) 01/20/2021 HGB 10.1 (L) 01/20/2021 HGB 10.5 (L) 01/17/2021 HGB 9.7 (L) 01/14/2021 HCT 30.1 (L) 01/20/2021 MCV 92 01/20/2021 PLT 303 01/20/2021 PLT 370 01/17/2021 PLT 362 01/14/2021 MPV 9.2 (L) 01/20/2021 RDWCV 13.4 01/20/2021 Coagulation Lab Results Component Value Date PROTIME 14.9 (H) 12/28/2020 INR 1.3 (H) 12/28/2020 PTT 37 12/28/2020 DDIMER 1,834 (H) 08/12/2020 Imagin02/04/21 LLE Ultrasound: The left common femoral vein and the profunda and superficial femoral veins in the proximal thigh were partially compressible and had mixed density echoes. The left femoral vein in the mid thigh was constricted, was non-compressible and was hypoechoic. The left femoral vein in the distal thigh was partially compressible and had mixed density. The left popliteal vein and gastrocnemius veins were non- compressible and had mixed density echoes. The left posterior tibial and peroneal veins were partially compressible and had mixed density echoes. No evidence of superifical vein thrombosis on the left. 08/12/20 LLE ultrasound: Deep veins above the knee: There is noncompressibility and loss of normal color Doppler flow of theleft external iliac vein, common femoral vein, deep femoral vein, femoral vein, popliteal vein. Deep veins below the knee: The posterior tibial and peroneal veins also demonstrate noncompressibility and loss of normal color Doppler flow. Superficial veins: There is noncompressibility and loss of normal color Doppler flow in the imaged portion of the proximal great saphenous vein. Other: No evidence of subcutaneous edema. ?? Assessment: 60-year-old man with unprovoked, extensive left lower extremity DVT from the external iliac vein through the deep veins of the calf diagnosed in August 2020. He has been tolerating apixabanwithout bleeding complications and has now completed 6 months of treatment. A repeat LLE ultrasoundin our vascular lab today reveals partial resolution with several areas of persistent, occlusive thr ombus. Interestingly, he has no LLE edema. While I had been planning on holding AC for the purpose of thrombophilia testing, given recent (12/29/20) R BKA for R foot diabetic ulceration/osteomyelitisand current immobility, I would like him to remain on apixaban at theraspeutic dosing. He will needa left hip replacement once he recovers from his surgery/infection due to severe degenerative changes, OA and several tears seen on MR and CT. At the time of DVT, identifiable risk factors included obesity with a BMI of 33, sedentary lifestyle and uncontrolled diabetes. We again discussed underlying inflammation as a corrugated fastener driver for thrombosis and the importance of getting his blood sugar under better control. I anticipate patient will requirelong-term anticoagulation given unprovoked nature and extent of DVT. Plan: 1. Anticoagulation: continue apixaban 5 mg BID given immobility, recent surgery. 2. Follow-up in 6 months for reassessment Please contact my office with questions/concerns. *I I spent a total of 35 minutes on the date of this encounter as indicated in the above progress note. Millie Landeros APRN 02/07/2021 14:29 Thrombosis and Hemostasis Program CC: Jason Batres documented in this encounter Plan of Treatment Not on file documented as of this encounter Visit Diagnoses Diagnosis Deep vein thrombosis (DVT) of proximal vein of left lower extremity, unspecified chronicity ([facility])- Primary documented in this encounter Care Teams Digester Capper Relationship Specialty Start Date End Date Jason Batres MD [address] [place] [address] PCP - General 07/27/11 12/31/23 documented as of this encounter
--- OUTSIDE RECORDS SUMMARY | 2024-02-28 16:43 | XMS_ITS | Encounter Summary ---
Author Organization [facility] Address [address] [place] [address] Care Team Providers Care Appraiser Auditor Name Role Phone Jason Batres MD Primary Care Provi margarita Reason for Visit * Reason Onset Date Comments Appointment Related 03/17/2021 03.21.2021 Cystoscopy 03/17/2021 Encounter Details Date Type Department Care Team (Late st Contact Info) Description 03/17/2021 Telephone [facility] - [facility] [address] [place] [address] Raman West MD [address] [facility], [address] [place] [address] Appointment Related (03.21.2021); Cystoscopy Social History Tobacco Use Types Packs/Day Years [...] Nickie Murillo RN documented in this encounter Miscellaneous Notes * Telephone Encounter - Jocy Monte RN - 03/17/2021 1428 EST Shoshana notes that they have had a few cases of COVID in their building. The patient has not had a close contact at this time. He was COVID tested today. Shoshana is aware to keep us informed of the patient's COVID status. If his test is positive they willlet us know so that we can wear appropriate PPE at the time of his appointment. Given he is being seen for gross hematuria, his appointment should not be delayed if possible. They will keep us informed. * Telephone Encounter - Akosua Bourgeois - 03/17/2021 1316 EST Per Shoshana, [facility], patient scheduled to see Dr. West and Cystoscopy for 1.17. However, there is COVID in their building. Patient does not have close contact and is being PCR tested today. Shoshana is requesting a call back today to verify if patient is to still be brought to appt or reschedule. documented in this encounter Plan of Treatment Not on file documented as of this encounter Visit Diagnoses Not on filedocumented in this encounter Care Teams Appraiser Auditor Relationship Specialty Start Date End Date Jason Batres MD [address] [place] [address] PCP - General 07/27/11 12/31/23 documented as of this encounter
--- OUTSIDE RECORDS SUMMARY | 2024-02-28 16:43 | XMS_ITS | Encounter Summary ---
Author Organization [facility] Address [address] [place] [address] Care Team Providers Care Surveillance Manager Name Role Phone Jason Batres MD Primary Care Provi margarita Alexus De La O RN [facility] Internal Medicine, Primary Care Provi margarita Reason for Visit * Reason Onset Date Comments Appointment Related 04/01/2021 Encounter Details Date Type Department Care Team (Late st Contact Info) Description 04/01/[address] [facility] Urology - [facility] [address] [place] [address] Raman West MD [address] [facility], [address] [place] [address] Appointment Related Social History Tobacco Use Types [...] encounter Miscellaneous Notes * Telephone Encounter - Brisa Ramachandran - 04/05/2021 1505 EST Rescheduled with Shoshana. * Telephone Encounter - Amy Lew - 04/01/2021 1140 EST Shoshana from [facility] calling to reschedule NPV w/ cysto. Please call back at [phone] documented in this encounter Plan of Treatment Not on file documented as of this encounter Visit Diagnoses Not on filedocumented in this encounter Additional Health Concerns Infection Onset Date Last Indicated Resolved Time R/O COVID-19 Comment:Negative 02/17/2022 02/17/2022 02/18/2022 7:30 EST Rule-Out C. difficile 02/25/2022 02/25/20222021 12:00 EST R/O COVID-19 04/09/2022 04/09/2022 04/09/2022 16:3 2 EST documented as of this encounter Care Teams Surveillance Manager Relationship Specialty Start Date End Date Jason Batres MD [address] [place] [address] PCP - General 07/27/11 12/31/23 [facility] Internal Medicine, [place] [address] [place] [address] PCP - General 01/01/24 Alexus De La O, gold frame assembler 04/18/22 08/13/23 documented as of this encounter
--- OUTSIDE RECORDS SUMMARY | 2024-02-28 16:43 | XMS_ITS | Encounter Summary ---
Author Organization [facility] Address [address] [place] [address] Care Team Providers Care Change Room Attendant Name Role Phone Jason Batres MD Primary Care Provi margarita Reason for Visit * Vascular Lab (Routine) - Closed Specialty Diagnoses / Procedures Referred By Eddie crocker Referred To Contact Diagnoses Leg DVT (deep venous thromboembolism), acute, left (HCC-CMS) Procedures LOWER VENOUS DUPLEX Millie Landeros NP Phone: tel: fax: Referral ID Status Reason Start Date Expiration Date Visits Re quested Visits Authorized [id number] Closed 11/04/2020 1 1 Encounter Details Date Type Department Care Team (Latest Contact Info) Description 02/07/2021 13:30 EST Ancillary Procedure Vascular Surgery and Endovascular Therapy - [facility] [place] [address] [place] [id number] Leg DVT (deep venous thromboembolism), acute, left (HCC-CMS) ([facility]) Social History Tobacco Use Types Packs/Day Years [...] Answer Entry Date Author Yes 12/23/2020 22:00 FREDERICT Nickie Murillo RN documented in this encounter Plan of Treatment Not on file documented as of this encounter Procedures Procedure Name Priority Date/Time Associated Diagnosis Comments US LOWER VENOUS DUPLEX (DVT) LEFT Routine 02/07/2021 14:02 EST Leg DVT (deep venous thromboembolism), acute, left ([facility]) ([facility]) documented in this encounter Results * US LOWER VENOUS DUPLEX (DVT) LEFT (02/07/2021 14:02 EST) Anatomical Region Laterality Modality Vascular Ultrasound Narrative 02/08/2021 17:00 EST ?Deep vein thrombosis noted within the left lower extremity with partial resolution in comparison to 08/12/2020 ultrasound. ?No evidence of superifical vein thrombosis on the left. Results given to Millie Landeros [02/07/2021 14:29:40 - RIC PEREZ] Left Lower Venous The left common femoral vein and the profunda and superficial femoral veins in the proximal thigh were partially compressible and had mixed density echoes. The left femoral vein in the mid thigh was constricted, was non-compressible and was hypoechoic. The left femoral vein in the distal thigh was partially compressible and had mixed density. The left popliteal vein and gastrocnemius veins were non-compressible and had mixed density echoes. The left posterior tibial and peroneal veins were partially compressible and had mixed density echoes. Left Lower Venous Other All other visualized veins in the left lower extremity demonstrated normal compressibility with no intraluminal echoes present. Venous HPI and Indications Follow up left DVT. Venous Past Medical History Anticoagulation therapy. us Millie Landeros [employer] IMG US VASCULAR ORDERABLES Final Result documented in this encounter Visit Diagnoses Diagnosis Leg DVT (deep venous thromboembolism), acute, left ([facility]) documented in this encounter Care Teams Change Room Attendant Relationship Specialty Start Date End Date Jason Batres MD [address] [place] [id number] PCP - General 07/27/11 12/31/23 documented as of this encounter
--- OUTSIDE RECORDS SUMMARY | 2024-02-28 16:43 | XMS_ITS | Encounter Summary ---
Author Organization [facility] Address [address] [place] [address] Care Team Providers Care Gis Analyst Name Role Phone Jason Batres MD Primary Care Provi margarita Reason for Visit * Reason Onset Date Comments Patient Information Update 11/04/2021 Encounter Details Date Type Department Care Team (Late st Contact Info) Description 11/04/2021 Telephone [facility] Urology - [address] [id number] Raman West MD [address] [place] [address], [address] [place] [address] Patient Information Update Social History Tobacco Use Types Packs/Day [...] encounter Miscellaneous Notes * Telephone Encounter - Elly Ham - 11/04/2021 1428 EDT Vanessa called to advise office that patient is admitted to [facility] awaiting placement.States she was in chart and noticed office was looking for him. Would like ghost writer to make a note. documented in this encounter Plan of Treatment Not on file documented as of this encounter Visit Diagnoses Not on filedocumented in this encounter Care Teams Gis Analyst Relationship Specialty Start Date End Date Jason Batres MD [address] [place] [address] PCP - General 07/27/11 12/31/23 documented as of this encounter
--- OUTSIDE RECORDS SUMMARY | 2024-02-28 16:43 | XMS_ITS | Encounter Summary ---
Author Organization [facility] Address [address] [place] [address] Care Team Providers Care Animation Camera Operator Name Role Phone Jason Batres MD Primary Care Provi margarita Reason for Visit * Reason Comments Hip Pain Left hip pain Pain * Consult (See Order Priority) - Order Cancelled Specialty Diagnoses / Procedures Referred By Eddie crocker Referred To Contact Orthopedic Surgery Diagnoses Osteoarthritis of left hip, unspecified osteoarthritis type Edson Arzate MD Phone: tel: fax: [facility] [place] [address] [place] [address] Phone: tel: fax: Referral ID Status Reason Start Date Expiration Date Visits Requested Visits Authorized [id number] Order Cancelled Specialty Services Required 1 1 1 Encounter Details Date Type Department Care Team (Latest Contact Info) Description 07/12/2021 15:30 EDT Office Visit [facility] [place] [address] Sachin Burroughs MD MSc [address] [phone] Primary osteoarthritis of left hip (Primary Dx) Social History [...] 12/23/2020 22:00 Nickie De Anda RN * Because of a [...] David Dougherty RN documented in this encounter Progress Notes * Sachin Burroughs MD - 07/12/2021 1530 EDT It was a pleasure to assess Jeff in our orthopedic clinic today in the presence of his brother. Asyou know, this 60-year-old gentleman is currently living in a rehab facility. He had very difficultfew months. He is going through a divorce. 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 He has severe left hip pain. In [address] he was seen by Dr. Hayden manuel. They were talking about doing hip replacement then, but surgery was postponed due to poorly controlled diabetes. Jeff does not walk. He says that he has essentially been bedbound for the past 6months. It does not sound as though he gets up much. He gets transferred to a wheelchair at times. He uses a bedpan. He says he has some pressure ulcers on his buttock. The left hip pain is 8/10. It is a constant. She takes morphine for the pain. His past medical history includes poorly controlled diabetes, he says that his current diabetic control is good. 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 This left him with somebalance and memory issues. He has a history of DVT. He is not sure if he takes blood thinners. Hypothyroidism. Chronic pain. He does not smoke or drink. On exam, he was unable to transfer to the examination table. The exam was therefore limited. Well-healed BKA on the right side. Left leg demonstrated some venous stasis discoloration. PT 1+ DP 0. Tibant 1/5 EHL 1/5. Plantar flexion 4/5. Slight decrease in sensation globally. Left hip range of motion was flexion of 80, internal rotation of 0 and external rotation of 20. The hip was very stiff andpainful. I was unable to inspect his skin. His x-rays demonstrate severe osteoarthritis of the left hip. Moderate osteoarthritis of the right hip. Today had a long discussion with Jeff and his brother. He is currently really struggling with his pain and social situation. He would like to have a hip replacement. Prior to surgery however I wouldlike him to do extensive PT and be able to get around, independently or with minimal help. I understand that he is getting a right leg prosthesis soon. I encouraged him to try getting up daily with alec. He should work on range of motion, strengthening, gait training and pool therapy if available. When he returns, I would like to examine his skin for open sores. He also needs to get his hemoglobin A1c checked. If he manages to succeed with his goals, then I believe we can proceed with a left posterior total hip replacement. All of his questions were answered and he was very pleased with our interaction today. We also need to inquire about his history of DVTs with a possible hematology consult. He will definitely be at high risk for infection. documented in this encounter Plan of Treatment Not on file documented as of this encounter Visit Diagnoses Diagnosis Primary osteoarthritis of left hip- Primary Primary localized osteoarthrosis, pelvic region and thigh documented in this encounter Care Teams Animation Camera Operator Relationship Specialty Start Date End Date Jason Batres MD [address] [place] [address] PCP - General 07/27/11 12/31/23 documented as of this encounter
--- OUTSIDE RECORDS SUMMARY | 2024-02-28 16:43 | XMS_ITS | Encounter Summary ---
Author Organization [facility] Address [address] [place] [address] Care Team Providers Care Taper Printed Circuit Layout Name Role Phone Jason Batres MD Primary Care Provi margarita Reason for Visit * Reason Comments Pain * Consult (See Order Priority) - Order Cancelled Specialty Diagnoses / Procedures Referred By Eddie crocker Referred To Contact Orthopedic Surgery Diagnoses History of below-knee amputation of right lower extremity (HCC-CMS) SeekerJs MD [address] [place] [address] Phone: tel: fax: Edson Arzate MD Phone: tel: fax: Referral ID Status Reason Start Date Expiration Date Visits Requested Visits Authorized [id number] Order Cancelled Specialty Services Required 1 1 1 Encounter Details Date Type Department Care Team (Latest Contact Info) Description 02/22/2021 9:00 EST Office Visit [facility] Foot & Ankle Program - [address] [place] [address] Edson Arzate MD [address] [place] [phone] Osteoarthritis of left hip, unspecified osteoarthritis type (Primary Dx); Below knee amputation (HCC-CMS) ([facility]) Social History Tobacco Use Types [...] Nickie Murillo RN documented in this encounter Progress Notes * Edson Arzate MD - 02/22/2021 0900 EST Reason For Visit: Follow-up of right-sided transtibial amputation. Date of surgery 12/29/2020. Subjective: Jeff Scott presents with his brother Terry today for follow-up of his right transtibial amputation. Since that time he is had no issues with his right lower extremity. His biggest complaint today is the fact that he has a severely arthritic hip that hurts with any type of motion and with weightbearing. He really has not been able to be mobilized as a result of this left hip. While he was in the hospital he had an extensive work-up of the hip including aspiration which did not show any evidence of infection. He is working well at keeping his diabetes under control. In regard to his right limb he has not been in a director of graduate medical education yet but he has been working at flexion extension exercis es. Objective: He is alert and oriented. The right residual limb has healed up well. There is no sign of wound breakdown. He has full extension and full flexion. Measuring 13 cm distal to the tibial tubercle the circumference measures 41 cm. The left hip has significant pain with any type of range of motion. Imaging: I reviewed the left hip images as well as CT scan with Jeff and his brother demonstratingthe end-stage arthritis of the hip joint. Assessment and Plan: In regard to the transtibial amputation I think that Jeff is doing quite well. We can get him some shrinkers to get some better shape of the residual limb. I will also set him up to see Dr. Gonzalez in physiatry in 4 to 6 weeks so that he may be ready for some fitting of a provisional prosthesis. With his end-stage arthritis of the hip I feel that getting him to see either Dr. Burroughs or Dr. Adrian for consideration of a total hip arthroplasty would be extremely helpful for him. I would like to see him again in 6 weeks. This note was prepared with the aid of voice recognition technology. The attempts at proofreading sometimes miss mistakes. All attempts are made to reproduce pertinent clinical information but sometimes grammatical mistakes and inappropriate word spelling occurs. documented in this encounter Plan of Treatment Not on file documented as of this encounter Visit Diagnoses Diagnosis Osteoarthritis of left hip, unspecified osteoarthritis type- Primary Below knee amputation (HCC-CMS) documented in this encounter Orders Equipment Count Last Ordered Date First Orde red Date GENERIC DME ORDER 1 02/22/2021 documented in this encounter Care Teams Taper Printed Circuit Layout Relationship Specialty Start Date End Date Jason Batres MD [address] [place] [address] PCP - General 07/27/11 12/31/23 documented as of this encounter
--- OUTSIDE RECORDS SUMMARY | 2024-02-28 16:43 | XMS_ITS | Encounter Summary ---
Author Organization [facility] Address [address] [place] [address] Care Team Providers Care Electric Range Servicer Name Role Phone Jason Batres MD Primary Care Provi margarita Reason for Visit * Reason Comments Follow-up RIGHT TTA Encounter Details Date Type Department Care Team (Latest Contact Info) Description 09/01/2021 11:00 EDT Office Visit [facility] Physical Medicine & Rehabilitation [place] [address] [place] [address] Arianne Gonzalez MD [address] [place] [phone] S/P BKA (below knee amputation), right (HCC-CMS) (HCC) (Primary Dx); Left hip pain; Osteoarthritis of left hip, unspecified osteoarthritis type Social History Tobacco Use Types Packs/Day [...] Progress Notes * Arianne Gonzalez MD - 09/01/2021 1100 EDT Jeff Castillo [place] Date of Visit: 09/01/2021 Chief Complaint Patient presents with ??? Follow-up RIGHT TTA HPI: Jeff returns for follow-up of right transtibial amputation. He was last seen in this clinic on 07/21/2021. He has received his initial prosthesis and is very pleased with it. He had some mild anterior patellar tendon/tibial tuberosity pain that resolved with minor socket modification. He is tolerating the prosthesis quite well in gradually increasing intervals, this morning wearing it from beforebreakfast until now. He needs some assistance with donning the gel liner due to left hip pain with deep flexion, but is otherwise independent with donning/doffing. He has been working with physical and occupational therapy almost daily, and has progressed to walking 100ft with rolling walker. He does require a few rest breaks to achieve that distance. He denies any right lower extremity pain withwalking. His activity tolerance appears to be mostly limited by left hip pain, and his therapists emphasize this as well. He has been weaning morphine, now MS Contin 10mg daily and 15mg BID (no MS IR). This is per [facility] records sent with the patient today, which is updated relative to [facility] records below. He has occasional phantom limb sensations, not painful. He denies any falls or acute injuries. He otherwise feels well today without acute issues or concerns. 12pt review of systems was completed and negative except as above. PMH, PSH, SH, FH reviewed with patient and in medical record. Current Outpatient Medications on File Prior to Visit Medication Sig Dispense Refill ??? acetaminophen (TYLENOL) 500 mg tablet Take 2 Tablets by mouth every 6 hours. 240 Tablet 3 ??? apixaban (ELIQUIS) 5 mg tablet Take 1 Tablet by mouth 2 times daily. 60 Tablet 5 ??? ascorbic acid, vitamin C, (VITAMIN C) 500 mg tablet Take 1 Tablet by mouth daily. 30 Tablet 2 ??? atorvastatin (LIPITOR) 20 mg tablet Take 1 Tab by mouth daily. 90 Tab 3 ??? bisacodyL (DULCOLAX) [address] 10 mg rectally as needed for Constipation. ??? blood glucose (FREESTYLE TEST) test strips 1 Strip by misc (non-drug; combo route) route 2 times daily 100 Each 1 ??? blood glucose meter (FREESTYLE FREEDOM LITE) [...] 1 capsule by mouth 3 times daily. 90 capsule 3 ??? insulin aspart U-100 (NOVOLOG FLEXPEN) 100 unit/mL (3 mL) injectable pen Sliding Scale Insulin Correction: BG ??66-140 give 0 units; BG 141-180 give 3 units; BG 181-210 give 4 units; BG 211-250 give??6 units; BG 251-299 give 8 units; BG > 299 give 12 units. Critical values are FSBG < 50 mg/dL or > 500 mg/dL 3 mL 0 ??? insulin aspart U-100 (NOVOLOG FLEXPEN) 100 unit/mL (3 mL) injectable pen If FSBG 0-250-no correction, FSBG 251-500 give 5 units and recheck at midnight, FSBG >500 call provider 3 mL 1 ??? insulin aspart U-100 (NOVOLOG FLEXPEN) 100 unit/mL (3 mL) injectable pen Inject 6 Units into the skin 3 times daily with meals. 5.4 mL 3 ??? insulin glargine (LANTUS SOLOSTAR/SEMGLEE) 100 unit/mL (3 mL) injection pen Inject 30 Units into the skin at bedtime. 9 mL 3 ??? lancets Test BID. 100 Each 1 ??? levothyroxine (SYNTHROID) 112 mcg tablet Take 1 Tab by mouth daily. 90 Tab 3 ??? lidocaine 5 % (LIDODERM) 5 % patch Apply to Left hip 30 Each 3 ??? methocarbamoL (ROBAXIN) 750 mg tablet Take 1 Tablet by mouth 4 times daily. 120 Tablet 3 ??? morphine (MS CONTIN) 15 mg CR tablet Take 1 Tablet by mouth daily with breakfast. Daily Max: 15mg 30 Tablet 0 ??? morphine (MS CONTIN) 30 mg CR tablet Take 1 Tablet by mouth 2 times daily with lunch and dinner. Daily Max: 60 mg 60 Tablet 0 ??? morphine (MS IR) 15 mg tablet Take 1 Tablet by mouth every 4 hours as needed for Pain. Daily Max: 90 mg 45 Tablet 0 ??? polyethylene glycol 3350 (MIRALAX) 17 gram packet Take 34 g by mouth daily. 30 Each 1 ??? senna (SENOKOT) 8.6 mg tablet Take 2 Tablets by mouth 2 times daily. 120 Tablet 1 ??? sertraline (ZOLOFT) 50 mg tablet Take 50 mg by mouth daily. ??? TAMSulosin (FLOMAX) 0.4 mg capsule Take 1 capsule by mouth daily. 30 capsule 2 ??? zinc oxide (DESITIN) 40 % paste paste Apply to buttocks erythema 454 g 0 No current facility-administered medications on file prior to visit. No Known Allergies EXAM: General: Well-nourished and well developed. No acute distress. HEENT: NCAT, eyelids and conjunctiva normal, external ears normal, normal hearing to voice, wearingface mask covering nose and mouth CV: No left lower extremity edema Resp: Normal respiratory rhythm and depth Skin: R TTA skin intact. Some blanchable erythema around R anterior patella, patellar tendon without skin breakdown. No evidence of rash or infection. Psych: Appropriate affect, insight intact MSK/Neuro: R TTA with minimal tenderness over tibial tuberosity. Maintains full R knee flexion/extension. Seated in manual WC, propelled independently. Doffs prosthesis independently without difficulty. Requires assistance to don gel liner but is able to correctly articulate instructions for donning assistance. Gait not assessed. Speech fluent and clear. Slow processing. IMAGING: XR L Hip 07/12/2021: Severe degenerative changes. There is an area of flattening in the superolateral aspect of the weightbearing portion of the left femoral head concerning for developing avascular necrosis. Assessment of the contralateral right hip shows moderate degenerative changes, no evidence of fracture or avascular necrosis on the right. Mild degenerative changes seen in the SI joints which appear otherwise congruent and symmetric. The pubic symphysis also appears congruent. Degenerative changes seen in thelower lumbar spine, more conspicuous at the lumbosacral junction. There is osteopenia. Soft tissuesare grossly unremarkable. MRI L Hip 12/29/2020: 1. ??Feathery pattern of muscle edema with areas of mild enhancement involving the adductor musculature, visualized portions of the proximal vastus musculature, and gluteus medius and minimus musclesabout the evaluated left hip. Imaging features are nonspecific and can be seen with muscle injury, i nflammation, or diabetic muscle ischemia. Infectious myositis can be considered in the appropriate clinical context. 2. ??Indistinct band-shaped area of altered signal and enhancement traversing the femoral neck and extending to the lesser trochanter concerning for stress reaction or impending insufficiency fracture in the setting of severe osteopenia. 3. ??Severe left hip joint osteoarthrosis with extensive degenerative tearing of the acetabular labrum. 4. ??Trochanteric bursitis with small volume fluid distending the right trochanteric bursa. 5. ??Moderate right hip joint osteoarthrosis and mild right trochanteric bursitis demonstrated on the wide [id number] coronal images. ASSESSMENT/PLAN: Jeff is a 60-year-old male s/p R TTA 12/29/2020 for chronic osteomyelitis in the setting of type 2diabetes mellitus who is progressing well with his initial prosthesis, now tolerating more prolonged wear and ambulating up to 100ft with rolling walker in therapy. His activity tolerance seems to bemost limited by persistent severe left hip pain. He is weaning morphine as he does not feel it was helpful. From an amputee rehab perspective, he is doing well and making good progress. No equipment needs at this time. Encouraged him to continue his effort in PT and OT to improve lower extremity strength and endurance. Continue to monitor skin for any wounds or persistent erythema. Will reach outto the total joint clinic for follow-up as he is functionally making significant gains and may be able to tolerate hip arthroplasty in the near future. Will follow-up in this clinic in 8 weeks, sooner if new issues or concerns arise. [...] as of this encounter Visit Diagnoses Diagnosis S/P BKA (below knee amputation), right ([facility])- Primary Left hip pain Pain in joint, pelvic region and thigh Osteoarthritis of left hip, unspecified osteoarthritis type documented in this encounter Care Teams Electric Range Servicer Relationship Specialty Start Date End Date Jason Batres MD [address] [place] [address] PCP - General 07/27/11 12/31/23 documented as of this encounter
--- OUTSIDE RECORDS SUMMARY | 2024-02-28 16:43 | XMS_ITS | Encounter Summary ---
Author Organization [facility] Address [address] [place] [address] Care Team Providers Care Ccna Name Role Phone Jason Batres MD Primary Care Provi margarita Reason for Visit * Reason Onset Date Comments Appointment Related 03/31/2021 Encounter Details Date Type Department Care Team (Late st Contact Info) Description 03/31/2021 Telephone [facility] - [address] [address] Edson Arzate MD [address] [place] [address] Appointment Related Social History Tobacco Use [...] Assessment Author No 12/30/2020 20:43 EDT Amari Ho, JARVIS * Are you blind or do you [...] Telephone Encounter - Katherine Patel LPN - 03/31/2021 1321 EST Call placed to [facility] regarding Jeff's missed appointment with Dr. Arzate today.Nurse states Jeff tested + for COVID yesterday and was unable to attend. They will call the officeat a later time to reschedule. KATHERINE PATEL LPN 03/31/2021 13:23 documented in this encounter Plan of Treatment Not on file documented as of this encounter Visit Diagnoses Not on filedocumented in this encounter Care Teams Ccna Relationship Specialty Start Date End Date Jason Batres MD [address] [place] [id number] PCP - General 07/27/11 12/31/23 documented as of this encounter
--- OUTSIDE RECORDS SUMMARY | 2024-02-28 16:43 | XMS_ITS | Encounter Summary ---
Author Organization [facility] Address [address] [place] [address] Care Team Providers Care Exercise Specialist Name Role Phone Jason Batres MD Primary Care Provi margarita Encounter Details Date Type Department Care Team (Latest Contact Info) Description 07/12/2021 15:27 EDT - 07/12/2021 23:59 EDT Hospital Encounter [facility] [address] [place], [place] [id number] Left hip pain Discharge Disposition: Home or [...] Date of Assessment Author Yes 12/23/2020 22:00 EDNickie Aguirre RN * Do you have difficulty dressing or bathing? (5 years old or older) Answer Date of Assessment Author No 12/23/2020 22:00 EDNickie Aguirre RN * Because of a physical, mental, [...] David Dougherty RN documented in this encounter Medications at Time of Discharge blood glucose meter (FREESTYLE FREEDOM LITE) Test FS BID. 1 Each 0 11/11/2013 FREESTYLE FREEDOM LITE Use as directed as needed (glucose monitoring). 1 Each 11/14/2017 acetaminophen (TYLENOL) 500 mg tablet Take 2 Tablets by mouth every 6 hours. 240 Tablet 3 01/21/2021 3 apixaban (ELIQUIS) 5 mg tablet Take 1 Tablet by mouth 2 times daily. 60 Tablet 5 11/04/2020 2 ascorbic acid, vitamin C, (VITAMIN C) 500 mg tablet Take 1 Tablet by mouth daily. 30 Tablet 2 01/21/2021 3 atorvastatin (LIPITOR) 20 mg tablet Take 1 Tab by mouth daily. 90 Tab 3 04/22/2020 2 bisacodyL (DULCOLAX) [address] 10 mg rectally as needed for Constipation. 3 blood glucose (FREESTYLE TEST) test strips 1 Strip by misc (non-drug; combo route) route 2 times daily 100 Each 1 05/11/2014 2 cholecalciferol, Vitamin D3, 1,000 unit tablet Take 2 Tabs by mouth at bedtime. 10/14/2019 3 diclofenac sodium gel Apply 4 g topically 4 times daily. 500 g 3 01/21/2021 3 Dimethicone-Zinc Oxide 20-25 % spray,non-aerosol Apply topically as needed for Other (Wound Care-buttocks). 128 g 2 01/21/2021 3 gabapentin (NEURONTIN) 300 mg capsule Take 1 capsule by mouth 3 times daily. 90 capsule 3 01/21/2021 2 insulin aspart U-100 (NOVOLOG FLEXPEN) 100 unit/mL (3 mL) injectable pen Sliding Scale Insulin Correction: BG ??66-140 give 0 units; BG 141-180 give 3 units; BG 181-210 give 4 units; BG 211-250 give??6 units; BG 251-299 give 8 units; BG > 299 give 12 units. Critical values are FSBG < 50 mg/dL or > 500 mg/dL 3 mL 01/21/2021 2 insulin aspart U-100 (NOVOLOG FLEXPEN) 100 unit/mL (3 mL) injectable pen If FSBG 0-250-no correction, FSBG 251-500 give 5 units and recheck at midnight, FSBG >500 call provider 3 mL 1 01/21/2021 2 insulin aspart U-100 (NOVOLOG FLEXPEN) 100 unit/mL (3 mL) injectable pen Inject 6 Units into the skin 3 times daily with meals. 5.4 mL 3 01/21/2021 3 insulin glargine (LANTUS SOLOSTAR/SEMGLEE) 100 unit/mL (3 mL) injection pen Inject 30 Units into the skin at bedtime. 9 mL 3 01/21/2021 2 lancets Test BID. 100 Each 1 11/11/2013 3 levothyroxine (SYNTHROID) 112 mcg tablet Take 1 Tab by mouth daily. 90 Tab 3 04/22/2020 2 lidocaine 5 % (LIDODERM) 5 % patch Apply to Left hip 30 Each 3 01/21/2021 3 methocarbamoL (ROBAXIN) 750 mg tablet Take 1 Tablet by mouth 4 times daily. 120 Tablet 3 01/21/2021 2 morphine (MS CONTIN) 15 mg CR tablet Take 1 Tablet by mouth daily with breakfast. Daily Max: 15 mg 30 Tablet 01/21/2021 2 morphine (MS CONTIN) 30 mg CR tablet Take 1 Tablet by mouth 2 times daily with lunch and dinner. Daily Max: 60 mg 60 Tablet 01/21/2021 2 morphine (MS IR) 15 mg tablet Take 1 Tablet by mouth every 4 hours as needed for Pain. Daily Max: 90 mg 45 Tablet 01/21/2021 2 polyethylene glycol 3350 (MIRALAX) 17 gram packet Take 34 g by mouth daily. 30 Each 1 01/21/2021 3 senna (SENOKOT) 8.6 mg tablet Take 2 Tablets by mouth 2 times daily. 120 Tablet 1 01/21/2021 3 TAMSulosin (FLOMAX) 0.4 mg capsule Take 1 capsule by mouth daily. 30 capsule 2 01/21/2021 2 zinc oxide (DESITIN) 40 % paste paste Apply to buttocks erythema 454 g 01/21/2021 3 documented as of this encounter Discharge Disposition Disposition Code Departure Means Destination Home or Self Care documented in this encounter Plan of Treatment Not on file documented as of this encounter Procedures Procedure Name Priority Date/Time Associated Diagnosis Comments XR HIP LEFT 2-3 VIEWS, OPTIONAL PELVIS Routine 07/12/2021 15:51 EDT Left hip pain documented in this encounter Results * XR HIP LEFT 2-3 VIEWS, OPTIONAL PELVIS (07/12/2021 15:51 EDT) Anatomical Region Laterality Modality Lower Extremities Left Computed Radio graphy 07/18/2021 10:5 6 EDT Impressions 07/18/2021 10:56 EDT FINDINGS / IMPRESSION: Frontal views of both hips were obtained as an AP pelvis in addition to dedicated AP and frog-leg lateral views of the left hip only which shows severe degenerative changes, in addition, there is an area of flattening in the superolateral aspect of the weightbearing portion of the left femoral head concerning for developing avascular necrosis. Assessment of the contralateral right hip show moderate degenerative changes, no evidence of fracture or avascular necrosis on the right. Mild degenerative changes seen in the SI joints which appear otherwise congruent and symmetric. The pubic symphysis also appears congruent. Degenerative changes seen in the lower lumbar spine, more conspicuous at the lumbosacral junction. There is osteopenia. Soft tissues are grossly unremarkable. A KingMark Calibration Marker is in place. Narrative 07/18/2021 10:56 EDT EXAM/TECHNIQUE: XR HIP LEFT 2-3 VIEWS, OPTIONAL PELVIS ??07/12/2021 4:00 PM HISTORY: ?? Left Hip Pain COMPARISON: Radiographs dated December 22, 2020 and July 06, 2014. Procedure Note Jr Cee MD - 07/18/2021 EXAM/TECHNIQUE: XR HIP LEFT 2-3 VIEWS, OPTIONAL PELVIS 07/12/2021 4:00 PM HISTORY: Left Hip Pain COMPARISON: Radiographs dated December 22, 2020 and July 06, 2014. IMPRESSION FINDINGS / IMPRESSION: Frontal views of both hips were obtained as an AP pelvis in addition todedicated AP and frog-leg lateral views of the left hip only which showssevere degenerative changes, in addition, there is an area of flatteningin the superolateral aspect of the weightbearing portion of the leftfemoral head concerning for developing avascular necrosis. Assessment ofthe contralateral right hip show moderate degenerative changes, noevidence of fracture or avascular necrosis on the right. Mild degenerativechanges seen in the SI joints which appear otherwise congruent andsymmetric. The pubic symphysis also appears congruent. Degenerativechanges seen in the lower lumbar spine, more conspicuous at thelumbosacral junction. There is osteopenia. Soft tissues are grosslyunremarkable. A KingMark Calibration Marker is in place. Sachin Burroughs MD MSc [facility] IMG DIAGNOSTIC I MAGING ORDERABLES Final Result documented in this encounter Visit Diagnoses Diagnosis Left hip pain Pain in joint, pelvic region and thigh documented in this encounter Care Teams Exercise Specialist Relationship Specialty Start Date End Date Jason Batres MD [address] [place] [id number] PCP - General 07/27/11 12/31/23 documented as of this encounter
--- OUTSIDE RECORDS SUMMARY | 2024-02-28 16:43 | XMS_ITS | Encounter Summary ---
Author Organization [facility] Address [address] [place] [address] Care Team Providers Care Student Driving Instructor Name Role Phone Jason Batres MD Primary Care Provi margarita Reason for Visit * Reason Onset Date Comments Hip Pain 07/12/2021 Encounter Details Date Type Department Care Team (Late st Contact Info) Description 07/12/2021 Orders Only [facility] Total Joint Program - [address] [address] Sachin Burroughs MD MSc [facility] [address] [place] [address] Left hip pain (Primary Dx) Social [...] of this encounter Results * XR HIP LEFT [...] A KingMark Calibration Marker is in place. us Sachin Burroughs MD MSc [facility] IMG DIAGNOSTIC I MAGING ORDERABLES Final Result documented in this encounter Visit Diagnoses Diagnosis Left hip pain- Primary Pain in joint, pelvic region and thigh Left hip pain Pain in joint, pelvic region and thigh documented in this encounter Care Teams Student Driving Instructor Relationship Specialty Start Date End Date Jason Batres MD [address] [place] [address] PCP - General 07/27/11 12/31/23 documented as of this encounter
--- OUTSIDE RECORDS SUMMARY | 2024-02-28 16:43 | XMS_ITS | Encounter Summary ---
Author Organization [facility] Address [address] [place] [address] Care Team Providers Care Instrument Repair Technician Name Role Phone Jason Batres MD Primary Care Provi margarita Alexus De La O RN [facility] Internal Medicine, Primary Care Provi margarita Reason for Visit * Reason Onset Date Comments Appointment Related 11/02/2021 Encounter Details Date Type Department Care Team (Late st Contact Info) Description 11/02/[address] [facility] Total Joint Program - [address] [address] Sachin Burroughs MD MSc [address] [phone] Appointment Related Social History Tobacco [...] encounter Miscellaneous Notes * Telephone Encounter - Sandie Sanchez LPN - 11/02/2021 1808 EDT I have tried reaching this pt to schedule a f/u appt with Dr. Burroughs for left hip pain. I have been unable to reach him at either number listed in [facility]. Home number says he no longer lives there and cell number says not in service. I see that he has an appt scheduled with you, maybe youcould let him know that I have been trying to reach him. Thank you, Sasha documented in this encounter Plan of Treatment Not on file documented as of this encounter Visit Diagnoses Not on filedocumented in this encounter Additional Health Concerns Infection Onset Date Last Indicated Resolved Time R/O COVID-19 Comment:Negative 02/17/2022 02/17/2022 02/18/2022 7:30 EST Rule-Out C. difficile 02/25/2022 02/25/20222021 12:00 EST R/O COVID-19 04/09/2022 04/09/2022 04/09/2022 16:3 2 EST documented as of this encounter Care Teams Instrument Repair Technician Relationship Specialty Start Date End Date Jason Batres MD [address] [place] [address] PCP - General 07/27/11 12/31/23 [facility] Internal Medicine, [facility] [address] [place] [address] PCP - General 01/01/24 Alexus De La O, plasterer spot 04/18/22 08/13/23 documented as of this encounter
--- OUTSIDE RECORDS SUMMARY | 2024-02-28 16:43 | XMS_ITS | Encounter Summary ---
Author Organization [facility] Address [address] [place] [address] Care Team Providers Care Order Processing Manager Name Role Phone Jason Batres MD Primary Care Provi mragarita Reason for Visit * Reason Comments Cystoscopy Hematuria f/u Seen I npatient (CYSTO) * Consult (See Order Priority) - Order Cancelled Specialty Diagnoses / Procedures Referred By Eddie crocker Referred To Contact Urology Diagnoses Gross hematuria Murray Garcia MD [address] [place] [address] Phone: tel: fax: Raman West MD Phone: tel: fax: Referral ID Status Reason Start Date Expiration Date Visits Requested Visits Authorized [id number] Order Cancelled Specialty Services Required 1 1 1 Encounter Details Date Type Department Care Team (Late st Contact Info) Description 04/26/2021 9:00 EST Office Visit [facility] Urology - [address] [address] Raman West MD [address] [place] [address], [address] [place] [address] Scope, Cystoscopy Hematuria, unspecified type (Primary Dx); Urinary retention Social History Tobacco Use Types Packs/Day Years [...] documented in this encounter Progress Notes * Raman West MD - 04/26/2021 0900 EST Chief Complaint: Chief Complaint Patient presents with ??? Cystoscopy Hematuria f/u Seen Inpatient (CYSTO) Reason for Consult: Urology was asked to see Jeff in consultation at the request of Jason Batres for evaluation of gross hematuria. HPI: Jeff is a 60 y.o. 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 He was admitted from left him pain. HE developed grosshematuria and had jennings catheter inserted,Urology was consulted. No clot retention. Patient was discharged to rehab. Jennings catheter was removed at rehab, unknown date. He does not recall his last admission or his jennings catheter. He reports he has been urinating well. He feels he is urinating like a race horse. No frequency, urgency. He will irregularly have nocturia x1. He denies any gross hematuria that he recalls. No history of nephrolithiasis, UTI. The patient denies any history of familial urological malignancy. No prostate cancer or bladder cancer. PMH PSH Diabetes Hypothyroidism Osteoarthritis Memory loss Cariopharyngioma s/p resection Craniotomy 2006 BKA 2020 Social History Family History Living at rehab Never smoker No regular alcohol use No pertinent FHx Medications Current Outpatient Medications: ??? acetaminophen (TYLENOL) 500 mg tablet, Take 2 Tablets by mouth every 6 hours., Disp: 240 Tablet, Rfl: 3 ??? apixaban (ELIQUIS) 5 mg tablet, Take 1 Tablet by mouth 2 times daily., Disp: 60 Tablet, Rfl: 5 ??? ascorbic acid, vitamin C, (VITAMIN C) 500 mg tablet, Take 1 Tablet by mouth daily., Disp: 30 Tablet, Rfl: 2 ??? atorvastatin (LIPITOR) 20 mg tablet, Take 1 Tab by mouth daily., Disp: 90 Tab, Rfl: 3 ??? bisacodyL (DULCOLAX) 10 mg suppository, Place 10 mg rectally as needed for Constipation., Disp:, Rfl: ??? blood glucose (FREESTYLE TEST) test strips, 1 Strip by misc (non-drug; combo route) route 2 times daily, Disp: 100 Each, Rfl: 1 ??? blood glucose meter (FREESTYLE FREEDOM LITE), Test FS BID., Disp: 1 Each, Rfl: 0 ??? cholecalciferol, Vitamin D3, 1,000 unit tablet, Take 2 Tabs by mouth at bedtime., Disp: , Rfl: ??? diclofenac sodium gel, Apply 4 g topically 4 times daily., Disp: 500 g, Rfl: 3 ??? Dimethicone-Zinc Oxide 20-25 % spray,non-aerosol, Apply topically as needed for Other (Wound Care-buttocks)., Disp: 128 g, Rfl: 2 ??? FREESTYLE FREEDOM LITE, Use as directed as needed (glucose monitoring)., Disp: 1 Each, Rfl: 0 ??? gabapentin (NEURONTIN) 300 mg capsule, Take 1 capsule by mouth 3 times daily., Disp: 90 capsule, Rfl: 3 ??? insulin aspart U-100 (NOVOLOG FLEXPEN) 100 unit/mL (3 mL) injectable pen, Sliding Scale InsulinCorrection: BG ??66-140 give 0 units; BG 141-180 give 3 units; BG 181-210 give 4 units; BG 211-250 give??6 units; BG 251-299 give 8 units; BG > 299 give 12 units. Critical values are FSBG < 50 mg/dL or > 500 mg/dL, Disp: 3 mL, Rfl: 0 ??? insulin aspart U-100 (NOVOLOG FLEXPEN) 100 unit/mL (3 mL) injectable pen, If FSBG 0-250-no correction, FSBG 251-500 give 5 units and recheck at midnight, FSBG >500 call provider, Disp: 3 mL, Rfl: 1 ??? insulin aspart U-100 (NOVOLOG FLEXPEN) 100 unit/mL (3 mL) injectable pen, Inject 6 Units into the skin 3 times daily with meals., Disp: 5.4 mL, Rfl: 3 ??? insulin glargine (LANTUS SOLOSTAR/SEMGLEE) 100 unit/mL (3 mL) injection pen, Inject 30 Units into the skin at bedtime., Disp: 9 mL, Rfl: 3 ??? lancets, Test BID., Disp: 100 Each, Rfl: 1 ??? levothyroxine (SYNTHROID) 112 mcg tablet, Take 1 Tab by mouth daily., Disp: 90 Tab, Rfl: 3 ??? lidocaine 5 % (LIDODERM) 5 % patch, Apply to Left hip, Disp: 30 Each, Rfl: 3 ??? methocarbamoL (ROBAXIN) 750 mg tablet, Take 1 Tablet by mouth 4 times daily., Disp: 120 Tablet,Rfl: 3 ??? morphine (MS CONTIN) 15 mg CR tablet, Take 1 Tablet by mouth daily with breakfast. Daily Max: 15 mg, Disp: 30 Tablet, Rfl: 0 ??? morphine (MS CONTIN) 30 mg CR tablet, Take 1 Tablet by mouth 2 times daily with lunch and dinner. Daily Max: 60 mg, Disp: 60 Tablet, Rfl: 0 ??? morphine (MS IR) 15 mg tablet, Take 1 Tablet by mouth every 4 hours as needed for Pain. Daily Max: 90 mg, Disp: 45 Tablet, Rfl: 0 ??? polyethylene glycol 3350 (MIRALAX) 17 gram packet, Take 34 g by mouth daily., Disp: 30 Each, Rfl: 1 ??? senna (SENOKOT) 8.6 mg tablet, Take 2 Tablets by mouth 2 times daily., Disp: 120 Tablet, Rfl: 1 ??? TAMSulosin (FLOMAX) 0.4 mg capsule, Take 1 capsule by mouth daily., Disp: 30 capsule, Rfl: 2 ??? zinc oxide (DESITIN) 40 % paste paste, Apply to buttocks erythema, Disp: 454 g, Rfl: 0 Allergies No Known Allergies Objective/Physical Exam: Vital Signs: There were no vitals taken for this visit. Exam: Gen: Alert, in no distress Abd: Soft, non tender. Back: No CVA tenderness. Genital: Circumcised phallus with patent meatus at the tip Neuro: Circumferential conversation. Poor gross memory. Poor historian. URO Office Cystoscopy Office cystoscopy for: Gross Hematuria. Anesthesia: 2% lidocaine gel . Procedure: Patient identified, prepped and draped in usual sterile manner 14 [place]. Flexible cystoscope inserted into urethra and guided into bladder under direct vision. Finding:normal urethra, normal prostate, normal bladder mucosa and normal orifices . Lab Results Component Value Date/Time HGB 10.1 (L) 01/20/2021 05:22 CREATININE 0.64 (L) 01/20/2021 05:22 CREATININE 0.60 (L) 01/17/2021 04:00 CREATININE 0.59 (L) 01/14/2021 05:36 Data Review: I have independently visualized the CT Urogram IMPRESSION Negative CT urogram without suspicious urinary tract abnormality. Gas in the bladder in the contextof a Jennings in place. Wall thickening of the rectum surrounding stool material, correlate clinically for stercoral proctitis. Distention of the stomach most likely due to recent ingested meal rather than gastric motility or gastric outlet obstruction issues. Assessment/ Jeff Anna Scott is a 60 y.o. male evaluated in clinic today for gross hematuria with cystoscopy. Episode of gross hematuria in setting of anticoagulation during recent admission. No clot retention. HisCT Urogram is without suspicious urinary tract abnormalities. His cytology showed no high grade urothelial carcinoma. Cystoscopy negative today, no bladder lesions. No obvious etiology of hematuria, no urothelial malignancy. Likely source of hematuria was prostatic bleeding in setting of anticoagulation. Due to large volume bladder on cysto today, we will have him follow in 6 months with PVR. Plan: Follow up in 6 months PVR Raman West MD 04/26/2021 10:34' documented in this encounter Plan of Treatment Not on file documented as of this encounter Visit Diagnoses Diagnosis Hematuria, unspecified type- Primary Urinary retention Retention of urine, unspecified documented in this encounter Care Teams Order Processing Manager Relationship Specialty Start Date End Date Jason Batres MD [address] [place] [id number] PCP - General 07/27/11 12/31/23 documented as of this encounter
--- OUTSIDE RECORDS SUMMARY | 2024-02-28 16:43 | XMS_ITS | Encounter Summary ---
Author Organization [facility] Address [address] [place] [address] Care Team Providers Care Technical Support Director Name Role Phone Jason Batres MD Primary Care Provi margarita Reason for Visit * Reason Comments Follow-up Encounter Details Date Type Department Care Team (Latest Contact Info) Description 07/21/2021 15:00 EDT Office Visit [facility] Physical Medicine & Rehabilitation - [place] [address] Arianne Gonzalez MD [address] [place] [phone] S/P BKA (below knee amputation), right ([facility]) ([facility]) (Primary Dx); Left hip pain; Osteoarthritis of left hip, unspecified osteoarthritis type; Type 2 diabetes mellitus with diabetic polyneuropathy, with long-term current use of insulin ([facility]) ([facility]) Social History Tobacco Use Types Packs/Day Years [...] Progress Notes * Arianne Gonzalez MD - 07/21/2021 1500 EDT Jeff Castillo Tyler Date of Visit: 07/21/2021 Chief Complaint Patient presents with ??? Follow-up HPI: Jeff returns for follow-up of right transtibial amputation. He was last seen in this clinic on 05/24/2021 for the same. Since that time, he has received shrinkers and is wearing them full-time, and has been working with Elbert of [employer] on fitting of the initial prosthesis. He recalls some anteriorknee pressure during initial fitting so Elbert was going to make some adjustments and schedule anotherfitting appointment. Jeff is awaiting a phone call for this. He generally feels quite good with nopain in the residual limb and only occasional non-painful phantom limb sensations. He has had no falls or acute injuries. In the interim, he met with Dr. Burroughs to discuss left hip arthroplasty, and was recommended topursue extensive physical therapy to maximize his physical independence prior to consideration of surgery. 12pt review of systems was completed and [...] voice, wearingface mask covering nose and mouth Resp: Normal respiratory rhythm and depth Skin: R TTA incision well healed. Residual limb skin intact without other lesions or rashes. Psych: Appropriate affect MSK/Neuro: R TTA nontender. Circumference at widest margin 41cm, essentially cylindrical; 42cm at knee center. Maintains full R knee flexion/extension. 5/5 R knee flexion/extension, hip flexion/extension/abudction/adduction. 5/5 L hip flexion/extension (with pain), L knee flexion/extension, ankle plantarflexion. 4/5 L ankle dorsiflexion to neutral only. Sensation to light touch decreased over L plantar and dorsal foot. Seated in manual WC with jair lift webbing. Gait not assessed. Speech fluent and clear. Noted slow processing, repetitive questioning with some confusion. Somewhat tangential. IMAGING: XR L Hip 07/12/2021: Severe degenerative [...] right trochanteric bursitis demonstrated on the wide [id number] coronal images. ASSESSMENT/PLAN: Jeff is a 60-year-old male s/p R TTA 12/29/2020 for chronic osteomyelitis in the setting of type 2diabetes mellitus. His residual limb volume has remained remarkably stable and he is undergoing fitting and adjustments of the initial prosthesis. Discussed gradual introduction of the prosthesis, beginning with 30- 60 minutes at a time and increasing wear time gradually with frequent skin monitoring. Encouraged him to continue to work with physical therapy at his subacute rehab facility for earlygait training, strengthening, and endurance. As Dr. Burroughs also noted, he will need to be as mobile and functionally independent as possible prior to undertaking left hip replacement. Will follow- up in 6 weeks, ideally with Elbert and his prosthesis, sooner if new issues or concerns arise. Patientindicated understanding and agreement with plan. All questions answered. I spent a total of 40 minutes in the care of this patient today including review of medical records, imaging, history, evaluation, counseling, coordination of care, and documentation. Arianne Gonzalez MD Physical Medicine and Rehabilitation documented in this encounter Plan of Treatment Not on file documented as of this encounter Visit Diagnoses Diagnosis S/P BKA (below knee amputation), right ([facility] Primary Left hip pain Pain in joint, pelvic region and thigh Osteoarthritis of left hip, unspecified osteoarthritis type Type 2 diabetes mellitus with diabetic polyneuropathy, with long-term current use of insulin ([facility]) documented in this encounter Historical Medications * This list may reflect changes made after this encounter. sertraline (ZOLOFT) 50 mg tablet Take 50 mg by mouth daily. 11/18/2021 added in this encounter Care Teams Technical Support Director Relationship Specialty Start Date End Date Jason Batres MD [address] [place] [id number] PCP - General 07/27/11 12/31/23 documented as of this encounter
--- OUTSIDE RECORDS SUMMARY | 2024-02-28 16:43 | XMS_ITS | Encounter Summary ---
Author Organization [facility] Address [address] [place] [address] Care Team Providers Care Infantryman Name Role Phone Jason Batres MD Primary Care Provi margarita Reason for Visit * Reason Comments New Patient Visit Encounter Details Date Type Department Care Team (Latest Contact Info) Description 05/24/2021 13:00 EDT Office Visit [facility] Physical Medicine & Rehabilitation - [place] [address] Arianne Gonzalez MD [address] [place] [phone] S/P BKA (below knee amputation), right ([facility]) ([facility]) (Primary Dx); Left hip pain; Osteoarthritis of left hip, unspecified osteoarthritis type; Type 2 diabetes mellitus with diabetic polyneuropathy, with long-term current use of insulin ([facility]) ([facility]) Social History Tobacco [...] Date of Assessment Author Yes 04/26/2021 9:18 EST Jose David Murillo RN documented as of this encounter Mental Status * Because of a physical, mental, or emotional condition, does this person have serious difficulty concentrating, remembering, or making decisions? Answer Entry Date Author Yes 04/26/2021 9:18 Jose David Dougherty RN documented in this encounter Progress Notes * Arianne Gonzalez MD - 05/24/2021 1300 EDT Jeff Scott Date of Visit: 05/24/2021 Chief Complaint Patient presents with ??? New Patient Visit HPI: Jeff is a 60 y.o. male referred by Edson Arzate MD for amputee care. He underwent right transtibial amputation on 12/29/2020 for chronic osteomyelitis. He was last seen by Dr. Arzate on 02/22/2021 and unfortunately missed follow- up in March and again this morning, when he was due to also meet with his structural architect, Elbert Macias of [employer]. He is accompanied to this appointment by his brother, Terry Scott. Jeff is currently residing at [facility] and is most concerned about his left hippain with severe osteoarthritis for which Dr. Arzate referred him to the total joint clinic. A consultation has not yet been scheduled. Jeff reports that physical therapy has been held due to significant limitations on account of the hip pain. As such, he has participated in very little PT related to the right transtibial amputation. Regarding the amputation, he denies any significant residual limb or phantom limb pain. His incision healed well and he has had no further skin issues. He states that he is wearing a security controls assessor most of the time, but is not wearing one today as they are being laundered at the facility. He has not yet been casted for an initial prosthesis. He does not recall whether he has met his structural architect. Prior to surgery, Jeff lived with his , Nguyen, but they are currently going through a divorce and Jeff is unsure where he will live after discharge from subacute rehab. 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 He would like to be able to return to living independently, riding a dirt bike, playing basketball, hunting, and fishing. It is unclear what his functional level was immediately prior to surgery. 12pt review of systems was completed [...] 2 times daily. 120 Tablet 1 ??? TAMSulosin (FLOMAX) 0.4 mg capsule Take [...] wearingface mask covering nose and mouth CV: L foot very cold to touch, weak DP pulse Resp: Normal respiratory rhythm and depth Skin: R TTA incision well healed. Residual limb skin intact without other lesions or rashes. Psych: Appropriate affect MSK/Neuro: R TTA nontender. Circumference at widest margin 41cm, essentially cylindrical; 42.5cm atknee center. In contrast, L calf circumference is noticeably smaller (not measured). Maintains fullR knee flexion/extension. 5/5 R knee flexion/extension, hip flexion/extension/abudction/adduction. L hip strength testing precluded by pain. 5/5 L knee flexion/extension, ankle plantarflexion. 4/5 L ankle dorsiflexion. Sensation to light touch decreased over L plantar and dorsal foot. Seated in manual WC with jair lift webbing. Gait not assessed. Speech fluent and clear. Noted slow processing, repetitive questioning with some confusion. Somewhat tangential. IMAGING: MRI L Hip 12/29/2020: 1. Feathery pattern of muscle edema with areas of mild enhancement involving the adductor musculature, visualized portions of the proximal vastus musculature, and gluteus medius and minimus muscles about the evaluated left hip. Imaging features are nonspecific and can be seen with muscle injury, inflammation, or diabetic muscle ischemia. Infectious myositis can be considered in the appropriate clinical context. 2. Indistinct band-shaped area of altered signal and enhancement traversing the femoral neck and extending to the lesser trochanter concerning for stress reaction or impending insufficiency fracture in the setting of severe osteopenia. 3. Severe left hip joint osteoarthrosis with extensive degenerative tearing of the acetabular labrum. 4. Trochanteric bursitis with small volume fluid distending the right trochanteric bursa. 5. Moderate right hip joint osteoarthrosis and mild right trochanteric bursitis demonstrated on thewide [id number] coronal images. ASSESSMENT/PLAN: Jeff is a 60-year-old male s/p R TTA 12/29/2020 for chronic osteomyelitis in the setting of type 2diabetes mellitus. He is far more concerned today about the severe left hip pain that is arguably more functionally limiting at this time. Will inquire about total joint referral placed by Dr. Arzate in February and attempt to arrange for consultation with Dr. Adrian or Dr. Burroughs. With regard to the amputation, his residual limb circumference remains unchanged relative to Dr. Arzate's measurement on 02/22/2021. It is unclear how much he has been wearing the security controls assessor. Recommend he wear this 25/09 with the exception of hygiene, alternating daily for cleaning. Will coordinate with Elbert for serial measurements to document limb volume stability, at which point he may be casted for the initial prosthesis. Would recommend proceeding with this process while awaiting evaluation for the left hip pain as a prosthesis may help facilitate transfers and progress toward functional independence. As above, it is unclear what his functional level was prior to surgery given some cognitive limitations, but would anticipate he may be a K2 or K3 ambulator provided his left hip pain is resolved. Prescription provided to [facility]: R TTA initial prosthesis, ultralight endoskeletal components, K2 foot, gel liners, suspension sleeves, single- and multi-ply socks, prosthetic supplies. Will follow-up in this clinic in 6-8 weeks, sooner if new issues or concerns arise. Patient and his brother indicated understanding and agreement with plan. All questions answered. I spent a total of 80 minutes in the care of this patient on the date of this encounter including review of medical records, imaging, history, evaluation, counseling, coordination of care, and documentation. Arianne Gonzalez MD Physical Medicine and Rehabilitation documented in this encounter Plan of Treatment Not on file documented as of this encounter Visit Diagnoses Diagnosis S/P BKA (below knee amputation), right ([facility])- Primary Left hip pain Pain in joint, pelvic region and thigh Osteoarthritis of left hip, unspecified osteoarthritis type Type 2 diabetes mellitus with diabetic polyneuropathy, with long-term current use of insulin ([facility]) documented in this encounter Orders Equipment Count Last Ordered Date First Orde red Date GENERIC DME ORDER 1 05/29/2021 documented in this encounter Care Teams Infantryman Relationship Specialty Start Date End Date Jason Batres MD [address] [place] [id number] PCP - General 07/27/11 12/31/23 documented as of this encounter
--- OUTSIDE RECORDS SUMMARY | 2024-02-28 16:43 | XMS_ITS | Encounter Summary ---
Author Organization [facility] Address [address] [place] [address] Care Team Providers Care Ski Production Supervisor Name Role Phone Jason Batres MD Primary Care Provi margarita Alexus De La O RN [facility] Internal Medicine, Primary Care Provi margarita Reason for Visit * Reason Onset Date Comments Appointment Related 01/23/2021 Encounter Details Date Type Department Care Team (Late st Contact Info) Description 01/23/2021 Telephone [facility] Foot & Ankle Program - [address] [address] Edson Arzate MD [address] [place] [phone] Appointment Related Social History Tobacco Use [...] encounter Miscellaneous Notes * Telephone Encounter - Penny Aguila - 01/23/2021 1039 EST PAS Message: Nguyen called to cancel appointment with Edson Arzate MD on 02/08 at 9am due to patient currently at [facility]/also foot has been removed. Patient would like a call back to reschedule? No. documented in this encounter Plan of Treatment Not on file documented as of this encounter Visit Diagnoses Not on filedocumented in this encounter Additional Health Concerns Infection Onset Date Last Indicated Resolved Time R/O COVID-19 Comment:Negative 02/17/2022 02/17/2022 02/18/2022 7:30 EST Rule-Out C. difficile 02/25/2022 02/25/20222021 12:00 EST R/O COVID-19 04/09/2022 04/09/2022 04/09/2022 16:3 2 EST documented as of this encounter Care Teams Ski Production Supervisor Relationship Specialty Start Date End Date Jason Batres MD [address] [place] [address] PCP - General 07/27/11 12/31/23 [facility] [address] [place] [address] PCP - General 01/01/24 Alexus De La O, associate relations specialist 04/18/22 08/13/23 documented as of this encounter
--- OUTSIDE RECORDS SUMMARY | 2024-02-28 16:43 | XMS_ITS | Encounter Summary ---
Author Organization [facility] Address [address] [place] [address] Care Team Providers Care Talent Acquisition Partner Name Role Phone Jason Batres MD Primary Care Provi margarita Reason for Visit * Reason Onset Date Comments Appointment Related 10/31/2021 time change Appointment Related 10/31/2021 Encounter Details Date Type Department Care Team (Late st Contact Info) Description 10/31/2021 Telephone [facility] Urology - [address] [id number] Raman West MD [address] [place] [address], [address] [place] [phone] Appointment Related (time change); Appointment Related Social History Tobacco Use Types [...] * Telephone Encounter - Brisa Ramachandran - 11/01/2021 1401 EDT No show letter sent. * Telephone Encounter - Kesha Jain - 11/01/2021 0837 EDT pts emergency contact yanet left a voice mail regarding the rehab places (Ca this is Yanet Scott. I'm leaving a message for Brisa who called in regards to Jeff Tyler. I googled the two rehab places that he possibly could've been sent to after he was at [facility] and he had some complications well at the [facility] rehab and was sent to [facility] and from there he went to a rehab place in [facility] month I googled those and stairs to the [place] [facility] or [facility]. I don't know which he hasn't contacted me since he got there. So alright I think if you maybe calling.) Thanks * Telephone Encounter - Brisa Ramachandran - 10/31/2021 0858 EDT Called primary contact number, spoke with manager metrology at [facility] who states pt no longer is at that facility. Left message on 's cell phone to call back and update contact info and confirm if pt plans to keep tomorrow's appt (time changed from 2:15 pm to 1:45 pm. documented in this encounter Plan of Treatment Not on file documented as of this encounter Visit Diagnoses Not on filedocumented in this encounter Care Teams Talent Acquisition Partner Relationship Specialty Start Date End Date Jason Batres MD [address] [place] [id number] PCP - General 07/27/11 12/31/23 documented as of this encounter
--- OUTSIDE RECORDS SUMMARY | 2024-02-28 16:43 | XMS_ITS | Encounter Summary ---
Author Organization [facility] Address [address] [place] [address] Care Team Providers Care Sales Order Specialist Name Role Phone Jason Batres MD Primary Care Provi margarita Alexus De La O RN [facility] Internal Medicine, Primary Care Provi margarita Encounter Details Date Type Department Care Team (Late st Contact Info) Description 09/25/2021 Lab Requisition [facility] Pathology & Laboratory Medicine - [facility] [address] [place], [place] [id number] Outr Resulting Lab, Provider Social History Tobacco Use Types Packs/Day Years [...] Procedure Name Priority Date/Time Associated Diagnosis Comments FECAL BACTERIAL PATHOGENS BY PCR Routine 09/24/2021 23:10 EDT documented in this encounter Results * FECAL BACTERIAL PATHOGENS BY PCR (09/24/2021 23:10 EDT) Salmonella PCR Negative Negative 09/26/2021 19:15 EDT [facility] Shigella/Enteroin vasive E. coli Negative Negative 09/26/2021 19:15 EDT [facility] HN LAB CAMPYLOBACTER PCR Negative Negative 09/26/2021 19:15 EDT [facility] Shiga Toxin PCR Negative Negative 19:15 EDT [facility] Feces SPECIMEN FROM RECTUM / Unknown Stool Collect / Unknown 09/24/2021 23:10 EDT 09/26/2021 14:28 EDT us Provider Outr Resulting Lab MICROBIOLOGY - GENER AL ORDERABLES Final Result [facility] [address] [place] [address] documented in this encounter Visit Diagnoses Not on filedocumented in this encounter Additional Health Concerns Infection Onset Date Last Indicated Resolved Time R/O COVID-19 Comment:Negative 02/17/2022 02/17/2022 02/18/2022 7:30 EST Rule-Out C. difficile 02/25/2022 02/25/20222021 12:00 EST R/O COVID-19 04/09/2022 04/09/2022 04/09/2022 16:3 2 EST documented as of this encounter Care Teams Sales Order Specialist Relationship Specialty Start Date End Date Jason Batres MD [address] [place] [address] PCP - General 07/27/11 12/31/23 [facility], [facility] [address] [place] [address] PCP - General 01/01/24 Alexus De La O, manager spa 04/18/22 08/13/23 documented as of this encounter
--- OUTSIDE RECORDS SUMMARY | 2024-02-28 16:45 | XMS_ITS | Encounter Summary ---
Author Organization [facility] Address [address] [place] [address] Care Team Providers Care Quality Review Trainer Name Role Phone Jason Batres MD Primary Care Provi margarita Reason for Visit * Reason Comments Hip Pain patient arrives via EMS from home yesterday with complaints of 10/10 L hip pain, L butt pain, and Femur pain. -LOC, no thinners, + pulses to left foot. VSS on arrival, febrile. Wound Check hxc diabetes, open w ound to bottom of R foot, febrile 100.4 * Auth/Cert Specialty Diagnoses / Procedures Referred By Eddie crocker Referred To Contact Diagnoses Ketoacidosis Diabetic foot infection ([facility]-CMS) Type 2 diabetes mellitus without complication, with long-term current use of insulin (HCC-CMS) Deep vein thrombosis (DVT) of proximal vein of left lower extremity, unspecified chronicity ([facility]-CMS) Referral ID Status Reason Start Date Expiration Date Visits Re quested Visits Authorized [id number] 1 1 Encounter Details Date Type Department Care Team (Late st Contact Info) Description 12/22/2020 19:00 EDT - 01/21/2021 10:18 EST Hospital Encounter [facility] General Medicine Unit [address] [place], [place] [id number] Alessandro Hernandez MD [address] [facility], Level [address] [place] [phone] Mary Ann Pinto MD [address] [place] [address] [address] [place] [phone] Marciano Segovia MD [address] [place], [place] [phone] Dejuan Marsh MD [address] [place], [place] [phone] Jeremías Baez MD [address] [place], [place] [phone] Maria Isabel Tompkins MD [address] [place], [place] [phone] Stanley Tillman MD [address] [place], [place] [phone] Tj Hitchcock MD [address] [place] [phone] Ti Maloney MD [address] [place] [phone] Lewis Davis MD [address] [place] [phone] MSSA bacteremia (Primary Dx); Diabetic foot infection (HCC-CMS) (HCC); Ketoacidosis; Deep vein thrombosis (DVT) of proximal vein of left lower extremity, unspecified chronicity ([facility]) ([facility]); Type 2 diabetes mellitus without complication, with long-term current use of insulin ([facility]) ([facility]); Primary osteoarthritis of left hip; Type 2 diabetes mellitus with diabetic polyneuropathy, with long-term current use of insulin ([facility]) ([facility]); Memory loss due to medical condition; 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 ([facility]) ([facility]); Adjustment disorder with depressed mood; Left hip pain; Hyperglycemia; Urinary retention; Gross hematuria; History of below-knee amputation of right lower extremity ([facility]) ([facility]) Discharge Disposition: Nursing Facility (Skilled) Social History Tobacco Use Types Packs/Day Years [...] Exposure Response Date Recorded In the last month, have you been in contact with someone who was confirmed or suspected to have Coronavirus / COVID-19? No / Unsure 12/22/2020 19:43 EDT documented as of this encounter Last Filed Vital Signs Vital Sign Reading Time Taken Comments Blood Pressure 107/61 01/21/2021 0621 EST Pulse 84 01/20/2021 0523 EST Temperature 36.6 ??C (97.8 ??F) 01/21/2021 0621 EST Respiratory Rate 18 01/20/2021 1353 EST Oxygen Saturation 96% 01/21/2021 0621 EST Inhaled Oxygen Concentration - - Weight 115.7 kg (255 lb 1.2 oz) 12/29/2020 1401 EDT Height 185.4 cm (6' 1) 12/29/2020 1401 EDT Body Mass Index 33.65 12/29/2020 1401 EDT documented in this encounter Functional Status * Are you deaf or do you have serious difficulty hearing? Answer Date of Assessment Author No 12/30/2020 20:43 EDT Amari Morocho RN * Are you blind or do [...] Nickie Murillo RN documented in this encounter Discharge Summaries * Lewis Davis MD - 01/21/2021 0817 EST Images from the original note were not included. HOSPITAL MEDICINE DISCHARGE SUMMARY Primary Care Provider: Jason Batres Attending Physician: Lewis Davis MD Admit Date: 12/23/20 Discharge Date: 01/21/21 Disposition (location): [facility] Condition at Discharge: Stable Reason for Admission (chief complaint): Left lower extremity/hip pain after a fall Principal/Final Diagnosis: MSSA bactermia, right diabetic foot infection (s/p BKA), left hip OA, hematuria, urinary retention Clinical Issues Needing Follow-up 1. Pertinent medication changes: Scheduled Tylenol 1000 mg q6h Lantus 30 units at betime Insulin Aspart 6 units with meals SSI insulin HOLD WORKERS' COMPENSATION MAGISTRATE METFORMIN AND JANUVIA Lidocaine patch to L hip Methocarbamol 750 mg 4 times daily MS Contin 15 mg w/ breakfast MS Contin 30 mg w/ lunch and dinner MS IR 15 mg q4h PRN Diclofenac gel 4 times daily Miralax daily Senna 2 tablets twice daily Tamsulosin 0.4 mg daily Vitamin C 500 mg tablet daily HOLD WORKERS' COMPENSATION MAGISTRATE TRAMADOL 2. Recommended follow-up tests/procedures needed: Please complete voiding trial on Wednesday 01/24 and plan to remove scanlon Orthopedic Follow up-BKA and Left Hip-referral sent Urology Follow up in ~2 weeks 3. Anticoagulation on discharge: Yes - continuation of prior to admission therapy WITHOUT changes Indication(s): VTE treatment Medication: DOAC apixaban 4. Changes to goals care at time of discharge (if applicable): NA Hospital Course: Jeff Scott is a 60 y.o. 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 On arrival he was found to be febrile with a leukocytosis and found to have a large ulcer on his right foot that he stated was present for many months and had not been concerning to him. Labs were notable for mild diabetic ketoacidosis which resolved with insulin and fluid resuscitation. He was admitted to the floor for further evaluation of his LLE pain and management of his right foot ulcer due to concern for osteomyelitis. R Diabetic Foot Ulcer/Osteomyelits His RLE ulcer was initially debrided in the ED by the ortho team. Bone biopsy was taken, blood cultures drawn and empiric therapy was started with vancomycin, cefepime, and metronidazole. Blood cultures were positive for MSSA and bone biopsy reveald Strep agalactiae and MSSA. Antibiotics were narrowed to cefazolin. A TTE revealed a severely dilated RV with severely reduced RV systolic function but no obvious signs of valvular vegetations. Because of lack of healing with conservative measures, he underwent a BKA on 12/29/20. He completed a 4 week course of Cefazolin on 01/20/21 and his PICC line was removed prior to discharge. LLE Pain/Osteoarthritis His left hip pain was evaluated with arthrocentesis, CT and MRI, which revealed no infection, but demonstrated severe degenerative changes, including OA, a torn labrum, trochaneteric bursitis and adjacent soft tissue enhancement c/w recent injury. Pain: His left hip pain presisted and pain was very debilitating and was managed with multimodal therapy of relaxation techniques, Tylenol, Diclofenac gel, Neurontin, as well as long and short acting morphine. Orthopedics evaluated the patient and recommended follow up for possible joint replacement after his infection is completely treated. Diabetes Management Hemoglobin A1C was ordered after admission which revealed level of 13.9. His WORKERS' COMPENSATION MAGISTRATE metformin, sitagliptin, and insulin lispro were held and he was managed with basal bolus insulin glargine 30 units nightly with insulin aspart 6 before meals (plus sliding scale). He will hold WORKERS' COMPENSATION MAGISTRATE oral antihyperglycemic regimen of metformin and Januvia. Course was complicated by urinary retention for which a scanlon was placed. He failed a voiding trialand Urolggy recommended keeping the scanlon until 01/24/21, at which point it should be removed, followed by repeated bladder scanning to ensure adequate voiding. A CT urogram was done (unremarkable) and follow up with Urology at [facility] was arranged for 2 weeks from discharge. The patient was discharged to [facility] on 01/21/21. Relevant Imaging/Procedures Performed: MRI left hip (12/29/20): 1. Feathery pattern of muscle edema with areas of mild enhancement involving the adductor musculature, visualized portions of the proximal vastus musculature, and gluteus medius and minimus muscles about the evaluated left hip. Imaging features are nonspecific and can be seen with muscle injury, inflammation, or diabetic muscle ischemia. Infectious myositis can be considered in the appropriate clinical context. ?? 2. Indistinct band-shaped area of altered signal and enhancement traversing the femoral neck and extending to the lesser trochanter concerning for stress reaction or impending insufficiency fracture in the setting of severe osteopenia. Please correlate. ?? 3. Severe left hip joint osteoarthrosis with extensive degenerative tearing of the acetabular labrum. ?? 4. Trochanteric bursitis with small volume fluid distending the right trochanteric bursa. ?? 5. Moderate right hip joint osteoarthrosis and mild right trochanteric bursitis demonstrated on thewide [id number] coronal images. 12/24/20 TTE Results Pending at Discharge: Test results still pending from this admission Procedure Component Value Units Date/Time NON-PROJECT MANAGEMENT PROFESSOR/FNA CYTOLOGY [[id number]] Collected: 01/20/21 1316 Lab Status: In process Specimen: Urine, Catheterized (straight) Updated: 01/20/21 1340 Upcoming Appointments Feb 07, 2021 13:30 Us Lower Venous Duplex with VL2-[facility] Vascular Surgery - [facility] (--) [address] [place] [address] Prep: -Wear loose fitting clothing. -Please bring any insurance information and a copayment if required by your insurance company. Feb 07, 2021 14:20 Follow Up Visit with Millie Landeros APRN [facility] [place] [facility] - [facility] ([facility]) [address] [place] [phone] Feb 23, 2021 11:30 New Patient Visit with Raman West MD, Cystoscopy Scope [facility] Urology [facility] (--) [address] [place] [phone] Urology (Dr West) to be scheduled for 2 weeks from now Orthopedics ([facility]) to be scheduled Desiree Marcano DO Internal Medicine, PGY-1 Pager [phone]/Cortex 01/21/21 9:33 Attending attestation: Patient seen and examined by me personally. I agree with findings/plans as outlined in resident's note above. Lewis Davis MD (I spent > 30 mins - all FTF and coordination) documented in this encounter Medications at Time [...] 01/21/2021 3 documented as of this encounter Ordered Prescriptions Prescription Sig Dispense Quantity Refills Last Filled Start Date End Date zinc oxide (DESITIN) 40 % paste paste Apply to buttocks erythema 454 g 01/21/2021 3 TAMSulosin (FLOMAX) 0.4 mg capsule Take 1 capsule by mouth daily. 30 capsule 2 01/21/2021 2 senna (SENOKOT) 8.6 mg tablet Take 2 Tablets by mouth 2 times daily. 120 Tablet 1 01/21/2021 3 polyethylene glycol 3350 (MIRALAX) 17 gram packet Take 34 g by mouth daily. 30 Each 1 01/21/2021 3 morphine (MS IR) 15 mg tablet Take 1 Tablet by mouth every 4 hours as needed for Pain. Daily Max: 90 mg 45 Tablet 01/21/2021 2 morphine (MS CONTIN) 30 mg CR tablet Take 1 Tablet by mouth 2 times daily with lunch and dinner. Daily Max: 60 mg 60 Tablet 01/21/2021 2 morphine (MS CONTIN) 15 mg CR tablet Take 1 Tablet by mouth daily with breakfast. Daily Max: 15 mg 30 Tablet 01/21/2021 2 methocarbamoL (ROBAXIN) 750 mg tablet Take 1 Tablet by mouth 4 times daily. 120 Tablet 3 01/21/2021 2 lidocaine 5 % (LIDODERM) 5 % patch Apply to Left hip 30 Each 3 01/21/2021 3 insulin aspart U-100 (NOVOLOG FLEXPEN) 100 unit/mL (3 mL) injectable pen Inject 6 Units into the skin 3 times daily with meals. 5.4 mL 3 01/21/2021 3 insulin aspart U-100 (NOVOLOG FLEXPEN) 100 [...] or > 500 mg/dL 3 mL 01/21/2021 09/16/202 2 gabapentin (NEURONTIN) 300 mg capsule Take 1 capsule by mouth 3 times daily. 90 capsule 3 01/21/2021 2 Dimethicone-Zinc Oxide 20-25 % spray,non-aerosol Apply topically as needed for Other (Wound Care-buttocks). 128 g 2 01/21/2021 3 diclofenac sodium gel Apply 4 g topically 4 times daily. 500 g 3 01/21/2021 3 ascorbic acid, vitamin C, (VITAMIN C) 500 mg tablet Take 1 Tablet by mouth daily. 30 Tablet 2 01/21/2021 3 insulin glargine (LANTUS SOLOSTAR/SEMGLEE) 100 unit/mL (3 mL) injection pen Inject 30 Units into the skin at bedtime. 9 mL 3 01/21/2021 2 acetaminophen (TYLENOL) 500 mg tablet Take 2 Tablets by mouth every 6 hours. 240 Tablet 3 01/21/2021 3 documented in this encounter Discharge Disposition Disposition Code Departure Means Destination Nursing Facility (Skilled) S killed Nursing documented in this encounter Progress Notes * Shelly Garcia, PT - 01/21/2021 1018 EST [facility] Acute Therapies [facility] Physical Therapy Discontinue/Discharge Note Date of Service: 01/26/2021 Precautions: Activity as tolerated and Non-weight bearing RLE SUBJECTIVE: NE patient discharged from hosptial OBJECTIVE: Intervention Completed Today: No treatment rendered today due to: patient has been/will be discharged from hospital. Team Communication: NE patient discharged from hospital Patient has been seen in physical therapy since 12/26/20. In this reporting period 12/26/20 to 01/21/21 the patient has been seen by a physical therapist. Please refer to the physical therapy notes for specifics on the patient's functional status and treatment sessions. Relevant objective findings: RANGE OF MOTION AND JOINT INTEGRITY: Active Range of Motion: Within normal limits except as noted Upper Quarter: Left Upper Extremity: Right Upper Extremity: Cervical Spine: ?? Lower Quarter: Left Lower Extremity: hip flexion passive 90 degrees while sitting at EOB, did not allow active or passive ROM of left hip due to pain RightLower Extremity: BKA Lumbar Spine: ?? MUSCLE PERFORMANCE: Strength: Formal resistive manual muscle testing not performed due to focus on functional activities at this time. Based on AROM and functional movement strength is as follows: ?? Upper Quarter: Left Upper Extremity: > to 3/5 as demonstrated functionally Right Upper Extremity: > to 3/5 as demonstrated functionally Cervical Spine: > to 3/5 as demonstrated functionally ?? Lower Quarter: Left Lower Extremity: > to 3/5 as demonstrated functionally (limited by pain) Right Lower Extremity: > to 3/5 as demonstrated functionally Lumbar Spine: N/E BALANCE, MOBILITY, AND GAIT: Per 01/18/21 PT note, Static Sitting Balance Level of Assistance: Supervision Additional Comments: Sky able to toelrate sitting at EOB for ~10 mins with supervision. ?? Rolling Level of Assistance: Modified independence Cue Amount: Moderate assistance Additional Comments: heavy use of bed features Scooting Forward Level of Assistance: Minimal contact assistance Type of Cues: Verbal, Tactile Additional Comments: performed x 5 Scooting Backward Level of Assistance: Minimal contact assistance Type of Cues: Tactile, Verbal Additional Comments: performed x 5 Sit to Supine Level of Assistance: Moderate assistance Cue Amount: Moderate assistance Type of Cues: Verbal, Tactile Supine to Sit Level of Assistance: Moderate assistance Type of Cues: Verbal, Tactile Repositioning Level of Assistance: Minimal contact assistance Type of Cues: Verbal, Tactile Lateral Transfer: To left Level of Assistance: Minimal contact assistance Additional Comments: 2 x 5 lateral scoots sittin at EOB ? ASSESSMENT: Physical therapy services in this setting have been discontinued secondary to: Patient has been or will be discharged from the hospital Physical Therapy Diagnosis: balance deficits, gait impairments, decreased tolerance to activity, impaired functional mobility, generalized deconditioning Physical Therapy Prognosis: Patient with good tolerance to activity at end of admission but does require ongoing step hawk cues for technique and time to process directions. Patient with good performance of lateral scooting therefore anticipate he will be able to progress toward slideboard transfers. Continue to recommend NICHOLE to facilitate maximal functional outcome. Current status is: below prior level of function ?? Short-Term Goals: ?? NE Long-Term Goals: - all goals unmet and deferred to NICHOLE ?? Bed mobility: patient will be able to perform with min contact assist demonstrating appropriate sequencing/motor planning. ?? Transfers: patient will be able to perform bed to chair transfers with min contact assist with use of appropriate assistive device. ?? Sit<>stand with min contact assist to RW. ?? Wheelchair propulsion: patient will be able to perform wheelchair propulsion for 250 feet with min contact assist. ?? The patient and/or caregiver will be able to recall recommendations. ?? All of the above mobility goals will be performed within vital sign parameters and oxygen saturation > 92%. ?? PLAN: D/C Physical Therapy Recommended Discharge Destination: Sub-acute rehabilitation Recommended Discharge Services: Physical therapy at rehabilitation facility Recommended Equipment Needs: To be determined by next care provider Other recommendations: No other consults recommended at this time Pager: [phone] Shelly Garcia, PT 01/26/2021 7:45 * Js Meza MD - 01/21/2021 1003 EST Images from the original note were not included. Ortho Brief: S: Patient doing well this morning. No pain in right residual limb. Looking forward to discharge O: Splint taken down and sutures removed. Tubigrip placed. Discussed with Dr. Preston. Will need figure of 8 debra bandage in addition to tubigrip until patient gets stump shrinkers Script given for Stump shrinkers. Referral placed for orthopaedic followup Js Meza MD 01/21/2021 10:06 * Lewis Davis MD - 01/20/2021 1727 EST Medicine Progress Note Service Date: 01/20/2021 Admit Date: 12/22/2020 19:00 Reason for Admission: 60 y.o. male admitted with a chief complaint of left leg pain and now with a principal diagnosis of management of severe diabetic right foot wound. 24 Hour Events: Had a good PT session Subjective/Objective Subjective Tearful at bedside due to ongoing pain exacerbated by psychosocial stressors, but deep breathing exercises have been helpful. Review of Systems A ten point review of systems was performed and was negative except for pertinent positives noted in the HPI Objective Vital Signs Temp: [36.7 ??C (98.1 ??F)-36.9 ??C (98.5 ??F)] , Heart Rate: --, Resp: [18] , BP: (113-126)/(63-73) , SpO2: [98 %] Physical Exam General appearance: Cooperative, alert Face: facial asymmetry with right facial droop (chronic) Lungs: clear to auscultation bilaterally, non labored breathing Heart: regular rate and rhythm, S1, S2 normal Abdomen: soft, non-tender; bowel sounds normal; no masses, no organomegaly Neurologic: Alert and oriented to person only Extremities: extremities warm, no cyanosis or edema. L hip tender to palpation. R stump elevated onpillow and wrapped. Able to lift R leg easily, L leg mobility very limited by pain though can tolerate passive movement if slow and controlled : Scanlon in place, draining bloody urine Pulses: 2+ UE pulses Skin: Skin color, temperature, turgor normal. Psych: appropriate affect Is PICC or central line present? Yes, it is still present. The line is still required. Labs Recent Labs 01/20/21 0522 WBC 11.13* RBC 3.29* HGB 10.1* HCT 30.1* MCV 92 MCH 30.7 MCHC 33.6 PLT 303 Recent Labs 01/20/21 0522 NA 140 K 4.3 CL 104 CO2 26 BUN 20 CREATININE 0.64* Glucose: 143/106/126/169 Hemoglobin A1C: 13.9 Lab Results Component Value Date CRP 219.2 (H) 12/27/2020 CRPP 11.7 (H) 03/09/201612/23 Bone Biopsy: Preliminary result: moderate Strep agalactiae (Group B) 12/23 Blood Cultures: Preliminary result: Anaerobic bottle positive for MSSA at 18 hours. Aerobic positive for MSSA at 23 hours 12/24 Blood Cultures: NGTD Imaging No new imaging Assessment/Plan Assessment Jeff Scott is a 60 y.o. 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 Sympoms improved with dilaudid and antibiosis. 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 Surgical course was uncomplicated. However, post-operative mobility has been limited by severe left hip pain with evidence of OA and degenerative labrum tears by MRI. However, he is not a current surgical candidate. Will maintain current pain regimen with goal of continue to encourage mobility and breathing exercises. We will continue to titrate his insulin for good glucose control without hypoglycemia. He is awaiting NICHOLE. Plan Type 2 Diabetes, WORKERS' COMPENSATION MAGISTRATE regimen of 45 units glargine daily with 10 units lispro with meals; [id number] 13.9 - Continue glargine to 30 units nightly - Continue to 6 units aspart with meals - Target BG 140-180 - Nutrition consulted for dietary recs and patient education, appreciate recs - Vit C 500mg daily - Vit D3 2000 units daily - BMP q 72 hours Urinary Retention Hematuria Scanlon in place - Urology consulted for hematuria and clots seen in scanlon, appreciate recs -No acute intervention -Urine cytology, CT urogram ordered. -Pull scanlon as outpatient (Sunday) with urology follow-up two weeks after discharge - Tamsulosin 0.4 mg daily Constipation - Increase Miralax to 34g BID, Senna 2 tabs BID, consider enema/suppository Fall Patient had a mechanical this admission without head strike or other evidence of injury. -Will continue to monitor and low threshold for imaging, especially of left hip if change in pain or location of pain. LLE/Hip Pain Per ortho no acute intervention such as surgery due to hx of bactermia and poorly controlled sugars. -Pain control - Tylenol 1000 q6 PRN, WORKERS' COMPENSATION MAGISTRATE tramadol - Robaxin 750mg q4 - hold NSAIDS, unclear benefit and risk of GI bleed on Eliquis with NSAIDs - lidocaine patch daily - Continue MS Contin TID (15, 30, 30) with MSIR 15 q4 PRN for breakthrough pain - Limit weightbearing of LLE Sepsis due to MSSA Bacteremia Osteomyelitis of R foot s/p BKA 12/31 - ID consulted for MSSA bacteremia, appreciate recs - Continue Cefazolin for 4 weeks from 12/24-11/18 (last dose on 01/20/21) - PICC placed 12/31 - Ortho consulted, appreciate recs - Non-weight bearing RLE - pillow under distal end of stump NOT knee. Goal: keep knee completely straight - Dressing to remain in place for 2-3 weeks post-op - Gabapentin to 300mg TID for neuropathic pain in the stump Pressure Wound - Buttocks - Zinc paste or Zinc- Dimethicone spray to buttocks BID and PRN with pericare - strict q2hr turns - avoid placing pillows directly behind buttocks when turning - float heel off mattress - Disposable dri-deshawn chux, avoid cloth - waffle cushion when up in chair. Limit OOB time to 1-2hrs - No briefs - if no improvement in skin condition, consider First Step Cirrus mattress Psychological Well-Being Patient with some lability and some nursing concerns for waxing and waning awareness and possible delirium -Med Psych consult active, appreciate recs DVT of the LLE - Diagnosed in August 2020 - WORKERS' COMPENSATION MAGISTRATE Eliquis 5mg BID Hypothyroidism - continue WORKERS' COMPENSATION MAGISTRATE levothyroxine VTE Prophylaxis - WORKERS' COMPENSATION MAGISTRATE Eliquis 5mg BID Discharge Plan Discharge to [facility] 01/21 Consults Infectious Disease, Ortho, Med Psych, and Nutrition Corey Alvarez PGY3 Internal medicine Pager: [phone] 01/20/21 17:27 Attending attestation: I have seen and examined the patient and agree with findings and plans as outlined in the resident's note above. Lewis Davis MD * Mars Ledezma - 01/20/2021 1054 EST CASE MANAGEMENT DISCHARGE NOTE: DISCHARGE DATE/TIME: 01/21/21 @ 10:30 DISCHARGE LOCATION: [facility]: [address] [place] [address] (Protection Agent Albina Sevilla: [phone]). MODE OF TRANSPORT: [facility] IM SIGNED (Y/N): FORMS ON CHART (Y/N): [facility], Ambulance ACCEPTING MD AND NUMBER: No call necessary. RN REPORT/UNIT: Please call report to [phone]. Prescriptions: For discharge to [facility], please send patient with hard copy prescriptions for any controlled medications. PATIENT AWARE AND IN AGREEMENT OF PLAN: Y FAMILY NOTIFIED (IF APPLICABLE- Y/N): Y- pt's brother Terry and spouse Nguyen informed of discharge plan. CHIEF ADMINISTRATIVE OFFICER/CHARGE/MD NOTIFIED (Y/N): Y COVID TEST: Ordered 01/20/21 Mars Ledezma RN, LANDSCAPING SPECIALIST, [facility] Pager # [phone] * Mars Ledezma - 01/19/2021 1415 EST Case Management Note: Recommended Discharge Destination: [facility]. Pt has been offered placement at [facility]. This director underwriter sales called and spoke with outreach coordinator Albina Sevilla ([phone]). They can accept pt on Sunday 01/21 depending on approval of Prior Auth which has been submitted to pt's insurance. This director underwriter sales met with pt at bedside. Provided him with NICHOLE update. He was excited to hear about the offer from [facility] and accepted readily. He is aware it is contingent on approval of Prior Auth. He asked that I inform his ex-spouse Nguyen and his brother Terry Scott about NICHOLE offer and discharge plan. Will continue to follow for discharge planning. Mars Ledezma RN, LANDSCAPING SPECIALIST, [facility] Pager # [phone] * Lewis Davis MD - 01/19/2021 0648 EST Medicine Progress Note Service Date: 01/19/2021 Admit Date: 12/22/2020 19:00 Reason for Admission: 60 y.o. male admitted with a chief complaint of left leg pain and now with a principal diagnosis of management of severe diabetic right foot wound. 24 Hour Events: Had a good PT session Subjective/Objective Subjective Jeff was in a good mood this morning and felt optimistic about his PT session yesterday. He still has hip pain but trying have an optimistic attitude about his recovery Review of Systems A ten point review of systems was performed and was negative except for pertinent positives noted in the HPI Objective Vital Signs Temp: [36.4 ??C (97.5 ??F)-36.9 ??C (98.4 ??F)] , Heart Rate: [90 BPM] , Resp: [16] , BP: (115-118)/(62-71) , SpO2: [98 %-100 %] Physical Exam General appearance: Cooperative, alert Face: facial asymmetry with right facial droop (chronic) Lungs: clear to auscultation bilaterally, non labored breathing Heart: regular rate and rhythm, S1, S2 normal Abdomen: soft, non-tender; bowel sounds normal; no masses, no organomegaly Neurologic: Alert and oriented to person only Extremities: extremities warm, no cyanosis or edema. L hip tender to palpation. R stump elevated onpillow and wrapped. Able to lift R leg easily, L leg mobility very limited by pain though can tolerate passive movement if slow and controlled : Scanlon in place, draining bloody urine Pulses: 2+ UE pulses Skin: Skin color, temperature, turgor normal. Psych: appropriate affect Is PICC or central line present? Yes, it is still present. The line is still required. Labs Recent Labs 01/17/21 0400 WBC 11.96* RBC 3.42* HGB 10.5* HCT 31.2* MCV 91 MCH 30.7 MCHC 33.7 PLT 370 Recent Labs 01/17/21 0400 NA 138 K 4.4 CL 99 CO2 29 BUN 19 CREATININE 0.60* Glucose: 143/106/126/169 Hemoglobin A1C: 13.9 Lab Results Component Value Date CRP 219.2 (H) 12/27/2020 CRPP 11.7 (H) 03/09/201612/23 Bone Biopsy: Preliminary result: moderate Strep agalactiae (Group B) 12/23 Blood Cultures: Preliminary result: Anaerobic bottle positive for MSSA at 18 hours. Aerobic positive for MSSA at 23 hours 12/24 Blood Cultures: NGTD Imaging No new imaging Assessment/Plan Assessment Jeff Scott is a 60 y.o. 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 Sympoms improved with dilaudid and antibiosis. 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 Surgical course was uncomplicated. However, post-operative mobility has been limited by severe left hip pain with evidence of OA and degenerative labrum tears by MRI. However, he is not a current surgical candidate. Will maintain current pain regimen with goal of continue to encourage mobility. We will continue to titrate his insulin for good glucose control without hypoglycemia. He is awaiting NICHOLE. Plan Hypoglycemia: improved Type 2 Diabetes, WORKERS' COMPENSATION MAGISTRATE regimen of 45 units glargine daily with 10 units lispro with meals; [id number] 13.9 - Continue glargine to 30 units nightly - Continue to 6 units aspart with meals - Target BG 140-180 - Nutrition consulted for dietary recs and patient education, appreciate recs - Vit C 500mg daily - Vit D3 2000 units daily - Hold on Endo consult at this time - BMP q 72 hours Urinary Retention Hematuria Scanlon in place - Urology consulted for hematuria and clots seen in scanlon, appreciate recs -No acute intervention - Tamsulosin 0.4 mg daily Constipation Last bowel movement 01/15 Possibly contributing to urinary retention - Increase Miralax to 34g BID, Senna 2 tabs BID, consider enema/suppository Fall Patient had a mechanical this admissionwithout head strike or other evidence of injury. -Will continue to monitor and low threshold for imaging, especially of left hip if change in pain or location of pain. LLE/Hip Pain Per ortho no acute intervention such as surgery due to hx of bactermia and poorly controlled sugars. Good work with PT yesterday -Pain control - Tylenol 1000 q6 PRN, WORKERS' COMPENSATION MAGISTRATE tramadol - Robaxin 750mg q4 - D/c Ibuprofen, unclear benefit and risk of GI bleed on Eliquis with NSAIDs - lidocaine patch daily - Continue MS Contin TID (15, 30, 30) with MSIR 15 q4 PRN for breakthrough pain - Gabapentin to 300mg tid - no acute plans from ortho regarding osteoarthritis management - following with with ortho regarding arthroplasty plans per note on Monday 01/01 - Limit weightbearing of LLE - Physical Therapy as able Sepsis due to MSSA Bacteremia Osteomyelitis of R foot s/p BKA 12/31 - ID consulted for MSSA bacteremia, appreciate recs - Continue Cefazolin for 4 weeks from 12/24-01/20 (last dose on 01/20/21) - PICC placed 12/31 - Ortho consulted, appreciate recs - Non-weight bearing RLE - pillow under distal end of stump NOT knee. Goal: keep knee completely straight - Dressing to remain in place for 2-3 weeks post-op - Gabapentin to 300mg TID for neuropathic pain in the stump Pressure Wound - Buttocks - Zinc paste or Zinc- Dimethicone spray to buttocks BID and PRN with pericare - strict q2hr turns - avoid placing pillows directly behind buttocks when turning - float heel off mattress - Disposable dri-deshawn chux, avoid cloth - waffle cushion when up in chair. Limit OOB time to 1-2hrs - No briefs - if no improvement in skin condition, consider First Step Cirrus mattress Psychological Well-Being Patient with some lability and some nursing concerns for waxing and waning awareness and possible delirium -CTM -Med Psych consult active, appreciate recs Deep Vein Thrombosis of the left lower extremity - Diagnosed in August 2020 - WORKERS' COMPENSATION MAGISTRATE Eliquis 5mg BID Hypothyroidism - continue WORKERS' COMPENSATION MAGISTRATE levothyroxine VTE Prophylaxis - WORKERS' COMPENSATION MAGISTRATE Eliquis 5mg BID Discharge Plan PT recommending NICHOLE Consults Infectious Disease, Ortho, Med Psych, and Nutrition Desiree Marcano DO Internal Medicine, PGY-1 Pager [phone]/Cortex 01/19/21 6:48 Attending attestation: I have seen and examined the patient and agree with findings and plans as outlined in the resident's note above. Lewis Davis MD * Shelly Garcia, PT - 01/18/2021 1209 EST [facility] Acute Therapy [facility] Physical Therapy Encounter Note Date of Service: 01/18/2021 SUBJECTIVE: Patient/Caregiver States: Okay I want to try to get up. I just anticipate all of this pain and thenget myself worked up. Numeric Pain Scale Numeric Pain Level (Scale 1-10): 8 Primary Pain Site Assessment Pain Location: Hip Pain Orientation : Left OBJECTIVE: Interventions Completed Today: Time: 1100 Total Treatment Time (minutes): 45 Timed Code Treatment Minutes: 45 Procedures: Therapeutic activities Therapeutic Activities Minutes: 45 Patient Status at the End of the Therapy Session, The patient was left in the: bed with the: Call larson in reach Patient Status at the End of the Therapy Session Comments: video monitor present, SCREEN VENT BINDER at bedside General Assessment: No problems noted Vital Signs Vital Signs with Activity Comment: Vitals monitored and stable throughout Static Sitting Balance Level of Assistance: Supervision Additional Comments: Sky able to toelrate sitting at EOB for ~10 mins with supervision. Rolling Level of Assistance: Modified independence Cue Amount: Moderate assistance Additional Comments: heavy use of bed features Scooting Forward Level of Assistance: Minimal contact assistance Type of Cues: Verbal, Tactile Additional Comments: performed x 5 Scooting Backward Level of Assistance: Minimal contact assistance Type of Cues: Tactile, Verbal Additional Comments: performed x 5 Sit to Supine Level of Assistance: Moderate assistance Cue Amount: Moderate assistance Type of Cues: Verbal, Tactile Supine to Sit Level of Assistance: Moderate assistance Type of Cues: Verbal, Tactile Repositioning Level of Assistance: Minimal contact assistance Type of Cues: Verbal, Tactile Lateral Transfer: To left Level of Assistance: Minimal contact assistance Additional Comments: 2 x 5 lateral scoots sittin at EOB Additional information may be available in the medical record. Patient/Family Education: Activity/Work/Community: Activity/energy conservation Braces and Equipment: Assistive device/technique Mobility, Transfers, and Gait: Bed mobility, Functional transfers, Transfers Recommendations: Discharge recommendations/planning Therapy Specific: Role of physical therapy Learner: Patient Outcome: Needs practice, Requires assist Team Communication: Notified: Nurse When: After therapy session By: [id number] communication Mobility and Gait: Mobility status, Encouraging patient to actively participate in rolling and bed mobility, Need for nursing to use mechanical lift to assist patient out of bed to recliner Patient Status and Referrals: Patient status ASSESSMENT: Patient with good tolerance to activity today but does require ongoing step hawk cues for technque and time to process directions. Patient with good performance of lateral scooting therefore anticipate he will be able to progress toward slideboard transfers. Continue to recommend NICHOLE to facilitate maximal functional outcome. Current status is: below prior level of function PLAN: Continue per established treatment plan Patient/Family Education: Discharge planning, Role of physical therapy/occupational therapy/rehabilitation Further Data Comments: Continue progression of functional mobility Recommended Discharge Destination: Subacute rehabilitation Therapy Specific Services: Physical therapy Equipment Recommended: To be determined by next provider Shelly Garcia PT 01/18/2021 12:05 * Lewis Davis MD - 01/18/2021 0653 EST Medicine Progress Note Service Date: 01/18/2021 Admit Date: 12/22/2020 19:00 Reason for Admission: 60 y.o. male admitted with a chief complaint of left leg pain and now with a principal diagnosis of management of severe diabetic right foot wound. 24 Hour Events: Continues to have hematuria Subjective/Objective Subjective Jeff was very upset when we visited today, crying through the conversation. Says that he is still in a lot of pain and it hasn't changed much. Says that he needs the pain medication to function. Tried with PT yesterday and said he was in too much pain to participate. Review of Systems A ten point review of systems was performed and was negative except for pertinent positives noted in the HPI Objective Vital Signs Temp: [36.6 ??C (97.8 ??F)-36.9 ??C (98.4 ??F)] , Heart Rate: [85 BPM-103 BPM] , Resp: [16-20] , BP: (114-152)/(61-71) , SpO2: [97 %-100 %] Physical Exam General appearance: Cooperative, alert Face: facial asymmetry with right facial droop (chronic) Lungs: clear to auscultation bilaterally, non labored breathing Heart: regular rate and rhythm, S1, S2 normal Abdomen: soft, non-tender; bowel sounds normal; no masses, no organomegaly Neurologic: Alert and oriented to person only Extremities: extremities warm, no cyanosis or edema. L hip tender to palpation. R stump elevated onpillow and wrapped. Able to lift R leg easily, L leg mobility very limited by pain though can tolerate passive movement if slow and controlled : Scanlon in place, draining bloody urine Pulses: 2+ UE pulses Skin: Skin color, temperature, turgor normal. Psych: appropriate affect Is PICC or central line present? Yes, it is still present. The line is still required. Labs Recent Labs 01/17/21 0400 WBC 11.96* RBC 3.42* HGB 10.5* HCT 31.2* MCV 91 MCH 30.7 MCHC 33.7 PLT 370 Recent Labs 01/17/21 0400 NA 138 K 4.4 CL 99 CO2 29 BUN 19 CREATININE 0.60* Glucose: 143/106/126/169 Hemoglobin A1C: 13.9 Lab Results Component Value Date CRP 219.2 (H) 12/27/2020 CRPP 11.7 (H) 03/09/201612/23 Bone Biopsy: Preliminary result: moderate Strep agalactiae (Group B) 12/23 Blood Cultures: Preliminary result: Anaerobic bottle positive for MSSA at 18 hours. Aerobic positive for MSSA at 23 hours 12/24 Blood Cultures: NGTD Imaging No new imaging Assessment/Plan Assessment Jeff Scott is a 60 y.o. 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 Sympoms improved with dilaudid and antibiosis. 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 Surgical course was uncomplicated. However, post-operative mobility has been limited by severe left hip pain with evidence of OA and degenerative labrum tears by MRI. However, he is not a current surgical candidate. Will maintain current pain regimen with goal of continue to encourage mobility. We will continue to titrate his insulin for good glucose control without hypoglycemia. He is awaiting NICHOLE. Plan Hypoglycemia: blood sugars continue to run low Type 2 Diabetes, WORKERS' COMPENSATION MAGISTRATE regimen of 45 units glargine daily with 10 units lispro with meals; [id number] 13.9 - Continue glargine to 30 units nightly - Continue to 6 units aspart with meals - Target BG 140-180 - Nutrition consulted for dietary recs and patient education, appreciate recs - Vit C 500mg daily - Vit D3 2000 units daily - Hold on Endo consult at this time - BMP q 72 hours Urinary Retention Hematuria Scanlon in place - Urology consulted for hematuria and clots seen in scanlon, appreciate recs -No acute intervention - Tamsulosin 0.4 mg daily Constipation Last bowel movement 01/15 Possibly contributing to urinary retention - Increase Miralax to 34g BID, Senna 2 tabs BID, consider enema/suppository Fall Patient had a mechanical this admissionwithout head strike or other evidence of injury. -Will continue to monitor and low threshold for imaging, especially of left hip if change in pain or location of pain. LLE/Hip Pain Per ortho no acute intervention such as surgery due to hx of bactermia and poorly controlled sugars. -Pain control - Tylenol 1000 q6 PRN, WORKERS' COMPENSATION MAGISTRATE tramadol - Robaxin 750mg q4 - Trial Ibuprofen 400 mg q6h for 2 days and evaluate relief - lidocaine patch daily - Continue MS Contin TID (15, 30, 30) with MSIR 15 q4 PRN for breakthrough pain - Gabapentin to 300mg tid - no acute plans from ortho regarding osteoarthritis management - following with with ortho regarding arthroplasty plans per note on Monday 01/01 - Limit weightbearing of LLE - Physical Therapy as able Sepsis due to MSSA Bacteremia Osteomyelitis of R foot s/p BKA 12/31 - ID consulted for MSSA bacteremia, appreciate recs - Continue Cefazolin for 4 weeks from 12/24-01/20 (last dose on 01/20/21) - PICC placed 12/31 - Ortho consulted, appreciate recs - Non-weight bearing RLE - pillow under distal end of stump NOT knee. Goal: keep knee completely straight - Dressing to remain in place for 2-3 weeks post-op - Gabapentin to 300mg TID for neuropathic pain in the stump Pressure Wound - Buttocks - Zinc paste or Zinc- Dimethicone spray to buttocks BID and PRN with pericare - strict q2hr turns - avoid placing pillows directly behind buttocks when turning - float heel off mattress - Disposable dri-deshawn chux, avoid cloth - waffle cushion when up in chair. Limit OOB time to 1-2hrs - No briefs - if no improvement in skin condition, consider First Step Cirrus mattress Psychological Well-Being Patient with some lability and some nursing concerns for waxing and waning awareness and possible delirium -CTM -Med Psych consult active, appreciate recs Deep Vein Thrombosis of the left lower extremity - Diagnosed in August 2020 - WORKERS' COMPENSATION MAGISTRATE Eliquis 5mg BID Hypothyroidism - continue WORKERS' COMPENSATION MAGISTRATE levothyroxine VTE Prophylaxis - WORKERS' COMPENSATION MAGISTRATE Eliquis 5mg BID Discharge Plan PT recommending NICHOLE Consults Infectious Disease, Ortho, Med Psych, and Nutrition Desiree Marcano DO Internal Medicine, PGY-1 Pager [phone]/Cortex 01/18/21 14:47 Attending attestation: I have seen and examined the patient and agree with findings and plans as outlined in the resident's note above. Lewis Davis MD * Murray Garcia MD - 01/18/2021 0614 EST Urology Progress Note Chief complaint: Right diabetic foot wound Admission Date: 12/22/2020 24 hour events: ??? Afebrile, HDS Subjective: Patient sleeping. Objective: Blood pressure 125/65, pulse 98, temperature 36.6 ??C (97.9 ??F), temperature source Oral, resp. rate 16, height 185.4 cm (73), weight (!) 115.7 kg (255 lb 1.2 oz), SpO2 97 %. Intake/Output Summary (Last 24 hours) at 01/18/2021 0615 Last data filed at 01/18/2021 0558 Gross per 24 hour Intake 120 ml Output 1575 ml Net -1455 ml Exam: Gen: NAD, non-toxic appearing. Patient sleeping Resp: Unlabored on room air : Scanlon draining pink tinged urine with small clots in tubing. Extremities: Warm and well perfused. Neuro: Alert and oriented, no gross motor or sensory deficits MSK: Normal ROM CBC Recent Labs 01/17/21 0400 WBC 11.96* RBC 3.42* HGB 10.5* HCT 31.2* MCV 91 MCHC 33.7 PLT 370 BMP Recent Labs 01/17/21 0400 CREATININE 0.60* BUN 19 NA 138 K 4.4 CL 99 CO2 29 Assessment: Jeff Scott is a 60 y.o. male with medical problems including hypothyroidism, osteoarthritis, short term memory loss 2/2 craniopharyngioma resected in 2006, and poorly controlled DM (A1c 13.9) withneuropathy and prior diabetic foot infections requiring TM amps in past, as well as h/o DVTs (currently on 6 month course of Eliquis for DVT in E) who presented for left leg pain, found to have osteomyelitis, now s/p right BKA on 12/29 with post-op recovery limited by left hip pain likely 2/2 OA and degenerative labrum tears on MRI. Patient with urinary retention requiring straight catheterization multiple times, eventually indwelling scanlon catheter placed.. Patient since developed gross hematuria, progressed on Eliquis. Urine draining well, continues to have gross hematuria without clot retention. Recommendations: - No acute urologic intervention indicated - Continue scanlon catheter to gravity drainage, manually irrigate PRN for patency, clots - Agree with continuing Flomax 0.4mg - Limit narcotics and avoid constipation as able - Urology will continue to follow, will need f/u in clinic arranged prior to d/c MURRAY GARCIA MD 01/18/2021 6:15 Weekdays from 7AM-5PM page the Urology Service Pager #[phone] with questions. Nights and weekends, please page through PAS. Cosigned by Raman West MD at 01/18/2021 10:44 EST * Olga Alvarez CSW - 01/17/2021 1610 EST Case management note. DC planning update. RUBA spoke w/patient's Nguyen. She states that she has discussed post NICHOLE DC plan w/ his brother eTrry. She and Terry agree that given the stairs in her home combined with patient's impulsivity and lack of 24/7 supervision, staying at her home after NICHOLE discharge is not a safe option for patient at this time. RUBA will update patient tomorrow. Lupe Alvarez [id number] global compensation manager II, akira bragg * Shelly Garcia, PT - 01/17/2021 1554 EST [facility] Therapy Acute Therapy [facility] Physical Therapy Contact Note Date of Service: 01/17/2021 Attempted to see patient this afternoon but he declined due to pain and fatigue. Patient appears kelly a component of anxiety related to mobility and the potential for pain, therefore recommend Med psych consult. Will follow-up per plan of care. Shelly Garcia, PT 01/17/2021 15:54 * Jordyn Linares RN - 01/17/2021 4673 EST Data:??Assumed care of pt at 0700. Pt a/ox3, with short term memory issues. Pt c/o 8-10 pain in L hip. Scanlon catheter in place and draining bloody urine, no clots noted this shift. ? Action:??Medications administered per eMAR. FSBG monitored. Encouraged independent repositioning inbed. Hourly safety checks. ?? Response:??Pt resting comfortably in bed. Good PO intake. No acute changes or concerns.?? JORDYN LINARES RN 01/17/2021 15:54 * Lewis Davis MD - 01/17/2021 0644 EST Medicine Progress Note Service Date: 01/17/2021 Admit Date: 12/22/2020 19:00 Reason for Admission: 60 y.o. male admitted with a chief complaint of left leg pain and now with a principal diagnosis of management of severe diabetic right foot wound. 24 Hour Events: Scanlon draining bloody urine Subjective/Objective Subjective No complaints other than his left hip. He does not remember urology coming in to see him last night. Review of Systems A ten point review of systems was performed and was negative except for pertinent positives noted in the HPI Objective Vital Signs Temp: [36.2 ??C (97.2 ??F)-36.9 ??C (98.4 ??F)] , Heart Rate: [98 BPM] , Resp: [16-20] , BP: (116-123)/(63-72) , SpO2: [94 %-98 %] Physical Exam General appearance: Cooperative, alert Face: facial asymmetry with right facial droop (chronic) Lungs: clear to auscultation bilaterally, non labored breathing Heart: regular rate and rhythm, S1, S2 normal Abdomen: soft, non-tender; bowel sounds normal; no masses, no organomegaly Neurologic: Alert and oriented to person only Extremities: extremities warm, no cyanosis or edema. L hip tender to palpation. R stump elevated onpillow and wrapped. Able to lift R leg easily, L leg mobility very limited by pain though can tolerate passive movement if slow and controlled : Scanlon in place Pulses: 2+ UE pulses Skin: Skin color, temperature, turgor normal. Psych: appropriate affect Is PICC or central line present? Yes, it is still present. The line is still required. Labs Recent Labs 01/17/21 0400 WBC 11.96* RBC 3.42* HGB 10.5* HCT 31.2* MCV 91 MCH 30.7 MCHC 33.7 PLT 370 Recent Labs 01/17/21 0400 NA 138 K 4.4 CL 99 CO2 29 BUN 19 CREATININE 0.60* Glucose: 143/106/126/169 Hemoglobin A1C: 13.9 Lab Results Component Value Date CRP 219.2 (H) 12/27/2020 CRPP 11.7 (H) 03/09/201612/23 Bone Biopsy: Preliminary result: moderate Strep agalactiae (Group B) 12/23 Blood Cultures: Preliminary result: Anaerobic bottle positive for MSSA at 18 hours. Aerobic positive for MSSA at 23 hours 12/24 Blood Cultures: NGTD Imaging No new imaging Assessment/Plan Assessment Jeff Scott is a 60 y.o. 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 Sympoms improved with dilaudid and antibiosis. 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 Surgical course was uncomplicated. However, post-operative mobility has been limited by severe left hip pain with evidence of OA and degenerative labrum tears by MRI. However, he is not a current surgical candidate. Will maintain current pain regimen with goal of continue to encourage mobility. We will continue to titrate his insulin for good glucose control without hypoglycemia. He is awaiting NICHOLE. Plan Hypoglycemia: blood sugars continue to run low Type 2 Diabetes, WORKERS' COMPENSATION MAGISTRATE regimen of 45 units glargine daily with 10 units lispro with meals; [id number] 13.9 - Decrease glargine to 30 units nightly - Decrease to 6 units aspart with meals - Target BG 140-180 - Nutrition consulted for dietary recs and patient education, appreciate recs - Vit C 500mg daily - Vit D3 2000 units daily - Hold on Endo consult at this time - BMP q 72 hours Urinary Retention Hematuria Scanlon removed 01/14, patient continued to retain and required straight cath twice and finally a scanlon was replaced - Urology consulted for hematuria and clots seen in scanlon, appreciate recs -No acute intervention - Tamsulosin 0.4 mg daily - Scanlon catheter now in place, plan to keep in place for at least 1 week Constipation Last bowel movement 01/15 Possibly contributing to urinary retention - Increase Miralax to 34g BID, Senna 2 tabs BID, consider enema/suppository Fall Patient had a mechanical this admissionwithout head strike or other evidence of injury. -Will continue to monitor and low threshold for imaging, especially of left hip if change in pain or location of pain. LLE/Hip Pain At some point patient will need an arthroplasty but ideally he could recover from his BKA first. Per ortho no acute intervention such as surgery due to hx of bactermia and poorly controlled sugars. His pain is currently limiting his mobility and he is essentially bed bound and his ability to work with PT - Have been unable to connect with [facility] [place] regarding hip injection, will continue to reach out - improving control on current regimen - Tylenol 1000 q6 PRN, WORK[employer]' COMPENSATION MAGISTRATE tramadol - Robaxin 750mg q4 - Trial Ibuprofen 400 mg q6h for 2 days and evaluate relief - lidocaine patch daily - Continue MS Contin TID to 15, 30, 30 with MSIR 15 q4 PRN for breakthrough pain - Gabapentin to 300mg tid - no acute plans from ortho regarding osteoarthritis management - following with with ortho regarding arthroplasty plans per note on Monday 01/01 - Limit weightbearing of LLE - Physical Therapy as able Sepsis due to MSSA Bacteremia Osteomyelitis of R foot 12/23 blood cultures: preliminary read: MSSA in anaerobic cultures and aerobic cultures TTE on 12/25 -> no evidence of IE but poor imaging - ID consulted for MSSA bacteremia, appreciate recs - Continue Cefazolin for 4 weeks from 12/24-01/20 (last dose on 01/20/21) - PICC placed 12/31 - Ortho consulted, appreciate recs - s/p BKA on 12/29 - Non-weight bearing RLE - pillow under distal end of stump NOT knee. Goal: keep knee completely straight - Dressing to remain in place for 2-3 weeks post-op - Gabapentin to 300mg TID for neuropathic pain in the stump Pressure Wound - Buttocks Discovered overnight on 01/02. Wound care evaluation ordered. Have seen and left recommendations. Will not follow patient - Zinc paste or Zinc- Dimethicone spray to buttocks BID and PRN with pericare - strict q2hr turns - avoid placing pillows directly behind buttocks when turning - float heel off mattress - Disposable dri-deshawn chux, avoid cloth - waffle cushion when up in chair. Limit OOB time to 1-2hrs - No briefs - if no improvement in skin condition, consider First Step Cirrus mattress Psychological Well-Being Patient with some lability and some nursing concerns for waxing and waning awareness and possible delirium -CTM -Med Psych consult active, appreciate recs -Have seen patient and will continue to follow Metabolic Encephalopathy -resolved Likely acute delirium in the setting of his room transfer. This was possibly exacerbated with his short term memory loss and having opioid pain medications -CTM Spacing out labs to q 72 hours Non active: Ketoacidosis - resolved - BMP daily Leukocytosis: Resolved (12.41 -> 7.06) - trend fever curve and continue to monitor for resolution - low threshold to re-draw blood cultures if acutely symptomatic or a fever develops - CBC daily Deep Vein Thrombosis of the left lower extremity - Diagnosed in August 2020 - WORKERS' COMPENSATION MAGISTRATE Eliquis 5mg BID Hypothyroidism - continue WORKERS' COMPENSATION MAGISTRATE levothyroxine VTE Prophylaxis - WORKERS' COMPENSATION MAGISTRATE Eliquis 5mg BID Discharge Plan PT recommending NICHOLE Consults Infectious Disease, Ortho, Med Psych, and Nutrition Desiree Marcano DO Internal Medicine, PGY-1 Pager [phone]/Cortex 01/17/21 16:16 Attending attestation: I have seen and examined the patient and agree with findings and plans as outlined in the resident's note above. Lewis Davis MD * Jordyn Linares RN - 01/16/2021 1624 EST ?? Data: Assumed care of pt at 0700. Pt a/ox3, with short term memory issues. Pt c/o 8-10 pain in Lhip. Scanlon catheter in place and draining nilson urine. ?? Action: Medications administered per eMAR. Q2hr repositioning. FSBG monitored. Encouraged independent repositioning in bed. Hourly safety checks. ?? Response: Pt resting comfortably in bed. Good PO intake. No acute changes or concerns. JORDYN LINARES RN 01/16/2021 16:24 * Desiree Marcano DO - 01/16/2021 0724 EST Medicine Progress Note Service Date: 01/16/2021 Admit Date: 12/22/2020 19:00 Reason for Admission: 60 y.o. male admitted with a chief complaint of left leg pain and now with a principal diagnosis of management of severe diabetic right foot wound. 24 Hour Events: Scanlon replaced for continued urinary retention Subjective/Objective Subjective Jeff seen this morning and is overall feeling ok. He continues to have persistent reportedly debilitating left hip pain and is emotional surrounding this. Review of Systems A ten point review of systems was performed and was negative except for pertinent positives noted in the HPI Objective Vital Signs Temp: [36.7 ??C (98 ??F)] , Heart Rate: [90 BPM] , Resp: [15-16] , BP: (109-119)/(61-69) , SpO2: [96 %-100 %] Physical Exam General appearance: Cooperative, alert Face: facial asymmetry with right facial droop (chronic) Lungs: clear to auscultation bilaterally, non labored breathing Heart: regular rate and rhythm, S1, S2 normal Abdomen: soft, non-tender; bowel sounds normal; no masses, no organomegaly Neurologic: Alert and oriented to person only Extremities: extremities warm, no cyanosis or edema. L hip tender to palpation. R stump elevated onpillow and wrapped. Able to lift R leg easily, L leg mobility very limited by pain : Scanlon in place Pulses: 2+ UE pulses Skin: Skin color, temperature, turgor normal. Psych: appropriate affect Is PICC or central line present? Yes, it is still present. The line is still required. Labs Recent Labs 01/13/21 0745 01/14/21 0536 WBC 9.91 9.80 RBC 3.26* 3.17* HGB 9.6* 9.7* HCT 29.3* 28.6* MCV 90 90 MCH 29.4 30.6 MCHC 32.8 33.9 PLT 364 362 Recent Labs 01/13/21 0745 01/14/21 0536 NA 135* 137 K 4.6 4.3 CL 98 101 CO2 29 29 BUN 18 17 CREATININE 0.63* 0.59* Glucose: 143/106/126/169 Hemoglobin A1C: 13.9 Lab Results Component Value Date CRP 219.2 (H) 12/27/2020 CRPP 11.7 (H) 03/09/201612/23 Bone Biopsy: Preliminary result: moderate Strep agalactiae (Group B) 12/23 Blood Cultures: Preliminary result: Anaerobic bottle positive for MSSA at 18 hours. Aerobic positive for MSSA at 23 hours 12/24 Blood Cultures: NGTD Imaging No new imaging Assessment/Plan Assessment Jeff Scott is a 60 y.o. 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 Sympoms improved with dilaudid and antibiosis. Seen by ortho and underwent right BTK amputation on 12/29 for infection control. Surgical course was uncomplicated. However, post- operative mobility has been limited by severe left hip pain with evidence of OA and degenerative labrum tears by MRI. However, he is not a current surgical can didate. Will maintain current pain regimen with goal of continue to encourage mobility. We will continue to titrate his insulin for good glucose control without hypoglycemia. He is awaiting NICHOLE. Plan Hypoglycemia: blood sugars continue to run low Type 2 Diabetes, WORK[employer] COMPENSATION MAGISTRATE regimen of 45 units glargine daily with 10 units lispro with meals; [id number] 13.9 - Decrease glargine to 35 units nightly - Decrease to 8 units aspart with meals - Target BG 140-180 - Nutrition consulted for dietary recs and patient education, appreciate recs - Vit C 500mg daily - Vit D3 2000 units daily - Hold on Endo consult at this time - BMP q 72 hours Urinary Retention Constipation Scanlon removed 01/14, patient continued to retain and required straight cath twice and finally a scanlon was replaced - Tamsulosin 0.4 mg daily - Scanlon catheter now in place, plan to keep in place for at least 1 week - Increase Miralax to 34g BID, Senna 2 tabs BID, consider enema/suppository Fall Patient had a mechanical earlier this week without head strike or other evidence of injury. -Will continue to monitor and low threshold for imaging, especially of left hip if change in pain or location of pain. LLE/Hip Pain At some point patient will need an arthroplasty but ideally he could recover from his BKA first. Per ortho no acute intervention such as surgery due to hx of bactermia and poorly controlled sugars. His pain is currently limiting his mobility and he is essentially bed bound and his ability to work with PT - Have been unable to connect with [facility] [place]ology regarding hip injection, will continue to reach out - improving control on current regimen - Tylenol 1000 q6 PRN, WORK[employer] COMPENS[employer] MAGISTRATE tramadol - Robaxin 750mg q4 - lidocaine patch daily - Increase MS Contin TID to 15, 30, 30 with MSIR 15 q4 PRN for breakthrough pain - Gabapentin to 300mg tid - no acute plans from ortho regarding osteoarthritis management - following with with ortho regarding arthroplasty plans per note on Monday 01/01 - Limit weightbearing of LLE - Physical Therapy as able Sepsis due to MSSA Bacteremia Osteomyelitis of R foot 12/23 blood cultures: preliminary read: MSSA in anaerobic cultures and aerobic cultures TTE on 12/25 -> no evidence of IE but poor imaging - ID consulted for MSSA bacteremia, appreciate recs - Continue Cefazolin for 4 weeks from 12/24-01/20 (last dose on 01/20/21) - PICC placed 12/31 - Ortho consulted, appreciate recs - s/p BTK amputation on 12/29 - Non-weight bearing RLE - pillow under distal end of stump NOT knee. Goal: keep knee completely straight - Dressing to remain in place for 2-3 weeks post-op - Gabapentin to 300mg TID for neuropathic pain in the stump Pressure Wound - Buttocks Discovered overnight on 01/02. Wound care evaluation ordered. Have seen and left recommendations. Will not follow patient - Zinc paste or Zinc- Dimethicone spray to buttocks BID and PRN with pericare - strict q2hr turns - avoid placing pillows directly behind buttocks when turning - float heel off mattress - Disposable dri-dehsawn chux, avoid cloth - waffle cushion when up in chair. Limit OOB time to 1-2hrs - No briefs - if no improvement in skin condition, consider First Step Cirrus mattress Psychological Well-Being Patient with some lability and some nursing concerns for waxing and waning awareness and possible delirium -CTM -Med Psych consult active, appreciate recs - Have seen patient and will continue to follow Metabolic Encephalopathy -resolved Likely acute delirium in the setting of his room transfer. This was possibly exacerbated with his short term memory loss and having opioid pain medications -CTM Spacing out labs to q 72 hours Non active: Ketoacidosis - resolved - BMP daily Leukocytosis: Resolved (12.41 -> 7.06) - trend fever curve and continue to monitor for resolution - low threshold to re-draw blood cultures if acutely symptomatic or a fever develops - CBC daily Deep Vein Thrombosis of the left lower extremity - Diagnosed in August 2020 - WORKERS' COMPENSATION MAGISTRATE Eliquis 5mg BID Hypothyroidism - continue WORKERS' COMPENSATION MAGISTRATE levothyroxine VTE Prophylaxis - WORKERS' COMPENSATION MAGISTRATE Eliquis 5mg BID Discharge Plan PT recommending NICHOLE Consults Infectious Disease, Ortho, Med Psych, and Nutrition Desiree Marcano DO Internal Medicine, PGY-1 Pager [phone]/Cortex 01/16/21 7:24 Cosigned by Ti Maloney MD at 01/16/2021 22:53 EST Associated attestation - Ti Maloney MD - 01/16/2021 6943 EST I interviewed and examined the patient. I have personally reviewed interval events, laboratory data, and imaging. I discussed the case with the inpatient resident team. I agree with findings and planof care as documented by the resident (or have edited in Blue). Ti Maloney MD 01/16/21 * Jordyn Linares RN - 01/15/2021 1624 EST Data: Assumed care of pt at 0700. Pt a/ox3, with short term memory issues. Pt c/o 8-12/12 pain in Lhip. Pt has not voided, straight cathed pt at 1000 and 650 mL drained. Pt denies urge or discomfort. Action: Medications administered per eMAR. Q2hr repositioning. FSBG monitored. Will place scanlon catheter if pt has not voided. Encouraged independent repositioning in bed. Hourly safety checks. Response: Pt resting comfortably in bed. Good PO intake. No acute changes or concerns. JORDYN LINARES RN 01/15/2021 16:24 * Desiree Marcano DO - 01/15/2021 0648 EST Medicine Progress Note Service Date: 01/15/2021 Admit Date: 12/22/2020 19:00 Reason for Admission: 60 y.o. male admitted with a chief complaint of left leg pain and now with a principal diagnosis of management of severe diabetic right foot wound. 24 Hour Events: Scanlon removed, retaining with PVR ~ Subjective/Objective Subjective Jeff overall feeling well, with continued left hip pain. He reports having the urge to urinate buthas not voided since his scanlon removal. There is not bladder/abdominal pain or discomfort. Review of Systems A ten point review of systems was performed and was negative except for pertinent positives noted in the HPI Objective Vital Signs Temp: [36.6 ??C (97.8 ??F)-36.7 ??C (98.1 ??F)] , Heart Rate: --, Resp: [18] , BP: (119-135)/(63-70) , SpO2: [97 %-98 %] Physical Exam General appearance: Cooperative, alert Face: facial asymmetry with right facial droop (chronic) Lungs: clear to auscultation bilaterally, non labored breathing Heart: regular rate and rhythm, S1, S2 normal Abdomen: soft, non-tender; bowel sounds normal; no masses, no organomegaly Neurologic: Alert and oriented to person only Extremities: extremities warm, no cyanosis or edema. L hip tender to palpation. R stump elevated onpillow and wrapped. Able to lift R leg easily, L leg mobility very limited by pain : Scanlon in place Pulses: 2+ UE pulses Skin: Skin color, temperature, turgor normal. Psych: appropriate affect Is PICC or central line present? Yes, it is still present. The line is still required. Labs Recent Labs 01/13/21 0745 01/14/21 0536 WBC 9.91 9.80 RBC 3.26* 3.17* HGB 9.6* 9.7* HCT 29.3* 28.6* MCV 90 90 MCH 29.4 30.6 MCHC 32.8 33.9 PLT 364 362 Recent Labs 01/13/21 0745 01/14/21 0536 NA 135* 137 K 4.6 4.3 CL 98 101 CO2 29 29 BUN 18 17 CREATININE 0.63* 0.59* Glucose: 143/106/126/169 Hemoglobin A1C: 13.9 Lab Results Component Value Date CRP 219.2 (H) 12/27/2020 CRPP 11.7 (H) 03/09/201612/23 Bone Biopsy: Preliminary result: moderate Strep agalactiae (Group B) 12/23 Blood Cultures: Preliminary result: Anaerobic bottle positive for MSSA at 18 hours. Aerobic positive for MSSA at 23 hours 12/24 Blood Cultures: NGTD Imaging No new imaging Assessment/Plan Assessment Jeff Scott is a 60 y.o. 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 Sympoms improved with dilaudid and antibiosis. Seen by ortho and underwent right BTK amputation on 12/29 for infection control. Surgical course was uncomplicated. However, post- operative mobility has been limited by severe left hip pain with evidence of OA and degenerative labrum tears by MRI. However, he is not a current surgical can didate. Will maintain current pain regimen with goal of continue to encourage mobility. We will continue to titrate his insulin for good glucose control without hypoglycemia. He is awaiting NICHOLE. Plan Hypoglycemia multiple hypoglycemic episode in the last 24 hours, asymptomatic Type 2 Diabetes, WORKERS' COMPENSATION MAGISTRATE regimen of 45 units glargine daily with 10 units lispro with meals; [id number] 13.9 - Decrease glargine to 40 units nightly - Decrease to 10 units aspart with meals - Target BG 140-180 - Nutrition consulted for dietary recs and patient education, appreciate recs - Vit C 500mg daily - Vit D3 2000 units daily - Hold on Endo consult at this time - BMP q 72 hours Urinary Retention Constipation Scanlon removed yesterday, patient retaining to ~700 ml this AM without discomfort though does reportthe urge to urination - Bladder scan q6h if not urinating, straight cath x1 if retaining >400 ml, if continues to retain there after, replace Scanlon catheter - Tamsulosin 0.4 mg daily - Scanlon catheter now in place, plan to keep in place for at least 1 week - Increase Miralax to 34g BID, Senna 2 tabs BID, consider enema/suppository Fall Patient had a mechanical earlier this week without head strike or other evidence of injury. -Will continue to monitor and low threshold for imaging, especially of left hip if change in pain or location of pain. Metabolic Encephalopathy -resolved Likely acute delirium in the setting of his room transfer. This was possibly exacerbated with his short term memory loss and having opioid pain medications -CTM LLE/Hip Pain At some point patient will need an arthroplasty but ideally he could recover from his BKA first. Per ortho no acute intervention such as surgery due to hx of bactermia and poorly controlled sugars. His pain is currently limiting his mobility and he is essentially bed bound and his ability to work with PT - Have been unable to connect with [facility] radiology regarding hip injection, will continue to reach out - improving control on current regimen - Tylenol 1000 q6 PRN, WORK[employer] COMPENSATION MAGISTRATE tramadol - Robaxin 750mg q4 - lidocaine patch daily - continue MS Contin TID 15, 15, 30 with MSIR 15 q4 PRN for breakthrough pain - Gabapentin to 300mg tid - no acute plans from ortho regarding osteoarthritis management - following with with ortho regarding arthroplasty plans per note on Monday 01/01 - Limit weightbearing of LLE - Physical Therapy as able - Seen once now, recommend NICHOLE at discharge Sepsis due to MSSA Bacteremia Osteomyelitis of R foot 12/23 blood cultures: preliminary read: MSSA in anaerobic cultures and aerobic cultures TTE on 12/25 -> no evidence of IE but poor imaging - ID consulted for MSSA bacteremia, appreciate recs - Continue Cefazolin for 4 weeks from 12/24-01/20 (last dose on 01/20/21) - PICC placed 12/31 - Ortho consulted, appreciate recs - s/p BTK amputation on 12/29 - Non-weight bearing RLE - pillow under distal end of stump NOT knee. Goal: keep knee completely straight - Dressing to remain in place for 2-3 weeks post-op - Gabapentin to 300mg TID for neuropathic pain in the stump Pressure Wound - Buttocks Discovered overnight on 01/02. Wound care evaluation ordered. Have seen and left recommendations. Will not follow patient - Zinc paste or Zinc- Dimethicone spray to buttocks BID and PRN with pericare - strict q2hr turns - avoid placing pillows directly behind buttocks when turning - float heel off mattress - Disposable dri-deshawn chux, avoid cloth - waffle cushion when up in chair. Limit OOB time to 1-2hrs - No briefs - if no improvement in skin condition, consider First Step Cirrus mattress Psychological Well-Being Patient with some lability and some nursing concerns for waxing and waning awareness and possible delirium -CTM -Med Psych consult active, appreciate recs - Have seen patient and will continue to follow Spacing out labs to q 72 hours Non active: Ketoacidosis - resolved - BMP daily Leukocytosis: Resolved (12.41 -> 7.06) - trend fever curve and continue to monitor for resolution - low threshold to re-draw blood cultures if acutely symptomatic or a fever develops - CBC daily Deep Vein Thrombosis of the left lower extremity - Diagnosed in August 2020 - WORKERS' COMPENSATION MAGISTRATE Eliquis 5mg BID Hypothyroidism - continue WORKERS' COMPENSATION MAGISTRATE levothyroxine VTE Prophylaxis - WORKERS' COMPENSATION MAGISTRATE Eliquis 5mg BID Discharge Plan PT recommending NICHOLE Consults Infectious Disease, Ortho, Med Psych, and Nutrition Desiree Marcano DO Internal Medicine, PGY-1 Pager [phone]/Cortex 01/15/21 14:44 Cosigned by Ti Maloney MD at 01/16/2021 7:23 EST Associated attestation - Ti Maloney MD - 01/16/2021 0723 EST I interviewed and examined the patient. I have personally reviewed interval events, laboratory data, and imaging. I discussed the case with the inpatient resident team. I agree with findings and planof care as documented by the resident (or have edited in Blue). Ti Maloney MD 01/15/21 * Mars Ledezma - 01/14/2021 1343 EST Case Management Note: Received a return call/ voice mail from pt's ex-spouse Nguyen Scott ([phone]). This director underwriter sales called her back and left another message. For the purposes of NICHOLE placement, we need to confirm that pt can return to live with Nguyen after NICHOLE (please see previous CM note). Will continue to follow for disc harge planning. Mars Ledezma RN, LANDSCAPING SPECIALIST, [facility] Pager # [phone] * Robbie Brown MD - 01/14/2021 0931 EST INFECTIOUS DISEASES PROGRESS NOTE Patient: Jeff Scott : 1960 Service: Medicine Date of Admission: 12/22/2020 Follow-up for: MSSA bacteremia, DFI Interval events: none SUBJECTIVE: uneventful night. Slept well. Still having left hip pain. No new pains. Tolerating antibiotics w/o diarrhea or rash. Eating. No new questions/concerns. REVIEW OF SYSTEMS: 10-point review of systems is negative except as mentioned in the HPI and as noted here. ALLERGIES: No Known Allergies MEDICATIONS: Reviewed in MAY. Anti-infectives: Cefepime 12/23 Ceftriaxone 12/23 Vancomycin 12/23 - 12/24 Metronidazole 12/23 - 12/24 Cefazolin 12/24 - PHYSICAL EXAM: VS: BP 136/72 (BP Cuff Location: Left arm, BP Patient Position: Semi fowlers) Pulse 86 Temp 36.2 ??C (97.1 ??F) (Oral) Resp 18 Ht 185.4 cm (73) Wt (!) 115.7 kg (255 lb 1.2 oz) SpO2 97% BMI 33.65 kg/m?? GENL: pleasant, NAD EENT: sclerae anicteric, moist mucous membranes, no ulcers NECK: supple CARD: RRR, nl S1, S2, no murmur PULM: clear to auscultation bilaterally ABDM: non-distended, soft, non-tender MSK: no joint swelling or erythema EXTR: S/P BKA w/ dressing; LLE limited ROM due to pain SKIN: rash NEURO: awake, alert and oriented x3, no focal deficit ACCESS: RUE PICC LABORATORY: Reviewed in detail in PRISM. WBC/RBC/HGB/HCT/PLT/ANC9.80/3.17/9.7/28.6/362/-- (01/15 536) Estimated Creatinine Clearance: 179.6 mL/min (A) (by C-G formula based on SCr of 0.59 mg/dL (L)). MICROBIOLOGY DATA: Reviewed in detail in PRISM. Pertinent for: 12/23 bone culture: few polys, GBS, MSSA, few mixed GPs 12/23 blood: GPC resembling staph in 03/06 22.9h, MSSA in 12 18h 12/24 blood no growth final IMAGING DATA: personally reviewed 12/22 right foot radiographs: There are transmetatarsal amputations at the level of the proximal aspects of the first through fifth metatarsals. Plantar skin and subcutaneous soft tissue ulcer at about the level of the transmetatarsal amputations. There is prominent soft tissue swelling surrounding the ulcer and extending throughout the foot.Osseous irregularity at the amputation margins may be postsurgical. If there is a high degree of clinical concern for osteomyelitis then MR imaging can be obtained to further evaluate for this possibility. Degenerative joint changes and calcaneal enthesopathic changes are similar compared to the prior study. Atherosclerotic arterial calcification is again noted. 12/[address] w/o contrast: * No evidence of acute fracture or dislocation. * There are however end-stage degenerative changes in the left hip with severe joint space narrowing resulting in [id number] as well as subchondral sclerosis and cyst formation in addition to exuberant osteophytosis. * Degrees of the normal except at the lateral aspect of the femoral head neck junction which while nonspecific suggest perhaps an underlying element of CAM- type femoroacetabular impingement was related to the severe osteoarthrosis. * Minimal remodeling in the weightbearing portion of the left femoral head without evidence of discrete flattening or collapse of the articular surface to suggest avascular necrosis. * Incidentally noted couple of elongated regions of intramuscular fat along the proximal aspect of the rectus femoris muscle with a couple of tiny foci of calcification, likely sequela from prior muscle injury with fat replacement, the possibility of intramuscular lipoma is less likely. * There is osteopenia. * Note made of vasectomy clips. A tiny focus of air in the subcutaneous soft tissues of the left inguinal region likely relates to prior injection. * Small fat-containing inguinal hernias. 12/24 TTE: ??? Right??Ventricle: The right ventricular cavity was severely dilated in size. Right ventricular systolic function was severely reduced. ??? Left??Ventricle: Left ventricular systolic function was normal with an ejection fraction of 60-65%. Left ventricular wall motion was normal; there were no regional wall motion abnormalities. ??? Suboptimal image quality but not obvious valvular vegetations. This does not rule IE given limited sensitivity specially with poor images. ASSESSMENT: 1. High-grade MSSA bacteremia. Community-onset. Secondary to right foot DFI w/ mixed organisms including MSSA, GBS, and mixed GPs. Blood sterile 12/24. 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 2. Ongoing severe left hip pain. Dry tap by ortho and CT without fluid collection, fracture. [place] to be OA flare by ortho. 3. Diabetes 4. Has TBI RECOMMENDATIONS: -- Cefazolin 2 grams every 8 hours, needs 4 wks from [facility] on 12/24 (last day is 01/20) Recommendations discussed with primary team Thank you for asking us to participate in this patient's care. Please call with questions or concerns. Robbie Brown MD Infectious Disease Attending 01/14/2021 9:48 * Sea Gomez MD - 01/14/2021 0720 EST Medicine Progress Note Service Date: 01/14/2021 Admit Date: 12/22/2020 19:00 Reason for Admission: 60 y.o. male admitted with a chief complaint of left leg pain and now with a principal diagnosis of management of severe diabetic right foot wound. 24 Hour Events: NAEO Subjective/Objective Subjective Patient was seen this morning sitting in bed. Patient's only complaint at this time is his left hippain. Patient denies any chest pain, chest pressure, SOB, cough, nausea, vomiting, diarrhea, constipation, abdominal pain, headache, or changes in vision. Patient had a hard time remembering our conversation yesterday however this is not far from his baseline. Review of Systems A ten point review of systems was performed and was negative except for pertinent positives noted in the HPI Objective Vital Signs Temp: [36.2 ??C (97.1 ??F)-37.3 ??C (99.2 ??F)] , Heart Rate: [100 BPM-106 BPM] , Resp: [16-18] , BP: (126-141)/(67-72) , SpO2: [97 %-100 %] Physical Exam General appearance: Cooperative, alert Face: facial asymmetry with right facial droop (chronic) Lungs: clear to auscultation bilaterally, non labored breathing Heart: regular rate and rhythm, S1, S2 normal Abdomen: soft, non-tender; bowel sounds normal; no masses, no organomegaly Neurologic: Alert and oriented to person only Extremities: extremities warm, no cyanosis or edema. L hip tender to palpation. R stump elevated onpillow and wrapped. Able to lift R leg easily, L leg mobility very limited by pain : Scanlon in place Pulses: LLE DP's palpable, RLE footless Skin: Skin color, temperature, turgor normal. Psych: appropriate affect Is PICC or central line present? Yes, it is still present. The line is still required. Labs Recent Labs 01/11/21 0803 01/13/21 0745 01/14/21 0536 WBC 8.57 9.91 9.80 RBC 3.15* 3.26* 3.17* HGB 9.7* 9.6* 9.7* HCT 28.9* 29.3* 28.6* MCV 92 90 90 MCH 30.8 29.4 30.6 MCHC 33.6 32.8 33.9 PLT 398* 364 362 Recent Labs 01/11/21 0803 01/13/21 0745 01/14/21 0536 NA 138 135* 137 K 4.5 4.6 4.3 CL 98 98 101 CO2 28 29 29 BUN 21 18 17 CREATININE 0.62* 0.63* 0.59* Glucose: 143/106/126/169 Hemoglobin A1C: 13.9 Lab Results Component Value Date CRP 219.2 (H) 12/27/2020 CRPP 11.7 (H) 03/09/201612/23 Bone Biopsy: Preliminary result: moderate Strep agalactiae (Group B) 12/23 Blood Cultures: Preliminary result: Anaerobic bottle positive for MSSA at 18 hours. Aerobic positive for MSSA at 23 hours 12/24 Blood Cultures: NGTD Imaging No new imaging Assessment/Plan Assessment Jeff Scott is a 60 y.o. 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 Sympoms improved with dilaudid and antibiosis. Seen by ortho and underwent right BTK amputation on 12/29 for infection control. Surgical course was uncomplicated. However, post- operative mobility has been limited by severe left hip pain with evidence of OA and degenerative labrum tears by MRI. However, he is not a current surgical can didate. Will maintain current pain regimen with goal of continue to encourage mobility. We will continue to titrate his insulin for good glucose control without hypoglycemia. He is awaiting NICHOLE. Plan Fall Patient had a mechanical fall yesterday without head strike or other evidence of injury. -Will continue to monitor and low threshold for imaging, especially of left hip if change in pain or location of pain. Hypoglycemia multiple hypoglycemic episode in the last 24 hours, asymptomatic Type 2 Diabetes, WORKERS' COMPENSATION MAGISTRATE regimen of 45 units glargine daily with 10 units lispro with meals; [id number] 13.9 Had low blood sugars this afternoon to 50, held his scheduled meal time, will continue to monitor and if persists will dose reduce his insulin - Decrease glargine to 48 units nightly - Decrease to 13 units aspart with meals - Target BG 140-180 - Nutrition consulted for dietary recs and patient education, appreciate recs - Vit C 500mg daily - Vit D3 2000 units daily - Hold on Endo consult at this time - BMP q 72 hours Urinary Retention (asymptomatic) Constipation Has a Scanlon, will try to pull in the upcoming day. Has been having some bowel movements per nursing. - Tamsulosin 0.4 mg daily - Scanlon catheter now in place, plan to keep in place for at least 1 week - Increase Miralax to 34g BID, Senna 2 tabs BID, consider enema/suppository Metabolic Encephalopathy -resolved Likely acute delirium in the setting of his room transfer. This was possibly exacerbated with his short term memory loss and having opioid pain medications -CTM LLE/Hip Pain At some point patient will need an arthroplasty but ideally he could recover from his BKA first. Per ortho no acute intervention such as surgery due to hx of bactermia and poorly controlled sugars. His pain is currently limiting his mobility and he is essentially bed bound and his ability to work with PT - Have been unable to connect with [facility] [place] regarding hip injection, will continue to reach out - improving control on current regimen - Tylenol 1000 q6 PRN, WORKERS' COMPENSATION MAGISTRATE tramadol - Robaxin 750mg q4 - lidocaine patch daily - continue MS Contin TID 15, 15, 30 with MSIR 15 q4 PRN for breakthrough pain - Gabapentin to 300mg tid - no acute plans from ortho regarding osteoarthritis management - following with with ortho regarding arthroplasty plans per note on Monday 01/01 - Limit weightbearing of LLE - Physical Therapy as able - Seen once now, recommend NICHOLE at discharge Sepsis due to MSSA Bacteremia Osteomyelitis of R foot 12/23 blood cultures: preliminary read: MSSA in anaerobic cultures and aerobic cultures TTE on 12/25 -> no evidence of IE but poor imaging - ID consulted for MSSA bacteremia, appreciate recs - Continue Cefazolin for 4 weeks from 12/24-01/20 (last dose on 01/20/21) - PICC placed 12/31 - Ortho consulted, appreciate recs - s/p BTK amputation on 12/29 - Non-weight bearing RLE - pillow under distal end of stump NOT knee. Goal: keep knee completely straight - Dressing to remain in place for 2-3 weeks post-op - Gabapentin to 300mg TID for neuropathic pain in the stump Pressure Wound - Buttocks Discovered overnight on 01/02. Wound care evaluation ordered. Have seen and left recommendations. Will not follow patient - Zinc paste or Zinc- Dimethicone spray to buttocks BID and PRN with pericare - strict q2hr turns - avoid placing pillows directly behind buttocks when turning - float heel off mattress - Disposable dri-deshawn chux, avoid cloth - waffle cushion when up in chair. Limit OOB time to 1-2hrs - No briefs - if no improvement in skin condition, consider First Step Cirrus mattress Psychological Well-Being Patient with some lability and some nursing concerns for waxing and waning awareness and possible delirium -CTM -Med Psych consult active, appreciate recs - Have seen patient and will continue to follow Spacing out labs to q 72 hours Non active: Ketoacidosis - resolved - BMP daily Leukocytosis: Resolved (12.41 -> 7.06) - trend fever curve and continue to monitor for resolution - low threshold to re-draw blood cultures if acutely symptomatic or a fever develops - CBC daily Deep Vein Thrombosis of the left lower extremity - Diagnosed in August 2020 - WORKERS' COMPENSATION MAGISTRATE Eliquis 5mg BID Hypothyroidism - continue WORKERS' COMPENSATION MAGISTRATE levothyroxine VTE Prophylaxis - WORKERS' COMPENSATION MAGISTRATE Eliquis 5mg BID Discharge Plan PT recommending NICHOLE Consults Infectious Disease, Ortho, Med Psych, and Nutrition SEA GOMEZ MD, PGY-2, Pager [phone] 01/14/2021 7:20 Cosigned by Ti Maloney MD at 01/15/2021 8:21 EST Associated attestation - Ti Maloney MD - 01/15/2021 0821 EST I interviewed and examined the patient. I have personally reviewed interval events, laboratory data, and imaging. I discussed the case with the inpatient resident team. I agree with findings and planof care as documented by the resident (or have edited in Blue). Ti Maloney MD 01/14/21 * Krystal Alonso RN - 01/13/2021 1711 EST Data: Assumed care at 0700. PT is a/ox3 with episodes of confusions, and short term memory deficits. PT reported pain levels up to 10/10 today in L.hip. PT reports that pain is really bad when tryingto move. PT reports being constipated. Scanlon intact draining clear nilson urine. Zinc spray to excoriation on buttocks. Action: Hourly rounding, scheduled pain meds along with a 1x dose of 0.6mg IV dilaudid. Splint LLE during any position changes. Elevate RLE. q2hr turns subtle turns. Response: PT responded well to 1x dose IV dilaudid. Blood sugars were WNL. Resting in bed call saji robles. Video monitor in place due to fall yesterday. KRYSTAL ALONSO RN 01/13/2021 17:11 * Desiree Marcano DO - 01/13/2021 0650 EST Medicine Progress Note Service Date: 01/13/2021 Admit Date: 12/22/2020 19:00 Reason for Admission: 60 y.o. male admitted with a chief complaint of left leg pain and now with a principal diagnosis of management of severe diabetic right foot wound. 24 Hour Events: Had a fall yesterday afternoon, no head strike Episodes of hypoglycemia Subjective/Objective Subjective Jeff was emotional this morning when I examined him. He was able to recall his fall yesterday but did not report any new areas of pain or change in his location of hip pain. He reports he was in a significant amount of pain in his left hip. He was tearful when discussing his current mobility limitations due to pain. Review of Systems A ten point review of systems was performed and was negative except for pertinent positives noted in the HPI Objective Vital Signs Temp: [36.5 ??C (97.7 ??F)-37.4 ??C (99.3 ??F)] , Heart Rate: [89 BPM-107 BPM] , Resp: [17-20] , BP: (120-138)/(68-79) , SpO2: [96 %-100 %] Physical Exam General appearance: Cooperative, alert Face: facial asymmetry with right facial droop (chronic) Lungs: clear to auscultation bilaterally, non labored breathing Heart: regular rate and rhythm, S1, S2 normal Abdomen: soft, non-tender; bowel sounds normal; no masses, no organomegaly Neurologic: Alert and oriented to person only Extremities: extremities warm, no cyanosis or edema. L hip tender to palpation. R stump elevated onpillow and wrapped. Able to lift R leg easily, L leg mobility very limited by pain : Scanlon in place Pulses: LLE DP's palpable, RLE footless Skin: Skin color, temperature, turgor normal. Psych: quite tearful during the interview when discussing his pain Is PICC or central line present? Yes, it is still present. The line is still required. Labs Recent Labs 01/11/21 0803 WBC 8.57 RBC 3.15* HGB 9.7* HCT 28.9* MCV 92 MCH 30.8 MCHC 33.6 PLT 398* Recent Labs 01/11/21 0803 NA 138 K 4.5 CL 98 CO2 28 BUN 21 CREATININE 0.62* Glucose: 143/106/126/169 Hemoglobin A1C: 13.9 Lab Results Component Value Date CRP 219.2 (H) 12/27/2020 CRPP 11.7 (H) 03/09/201612/23 Bone Biopsy: Preliminary result: moderate Strep agalactiae (Group B) 12/23 Blood Cultures: Preliminary result: Anaerobic bottle positive for MSSA at 18 hours. Aerobic positive for MSSA at 23 hours 12/24 Blood Cultures: NGTD Imaging No new imaging Assessment/Plan Assessment Jeff Scott is a 60 y.o. 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 Sympoms improved with dilaudid and antibiosis. Seen by ortho and underwent right BTK amputation on 12/29 for infection control. Surgical course was uncomplicated. However, post- operative mobility has been limited by severe left hip pain with evidence of OA and degenerative labrum tears by MRI. However, he is not a current surgical can didate. Will maintain current pain regimen with goal of continue to encourage mobility. We will continue to titrate his insulin for good glucose control without hypoglycemia. He is awaiting NICHOLE. Plan Fall Patient had a mechanical fall yesterday without head strike or other evidence of injury. -Will continue to monitor and low threshold for imaging, especially of left hip if change in pain or location of pain. Hypoglycemia multiple hypoglycemic episode in the last 24 hours, asymptomatic Type 2 Diabetes, WORKERS' COMPENSATION MAGISTRATE regimen of 45 units glargine daily with 10 units lispro with meals; [id number] 13.9 Had low blood sugars this afternoon to 50, held his scheduled meal time, will continue to monitor and if persists will dose reduce his insulin - Decrease glargine to 48 units nightly - Decrease to 13 units aspart with meals - Target BG 140-180 - Nutrition consulted for dietary recs and patient education, appreciate recs - Vit C 500mg daily - Vit D3 2000 units daily - Hold on Endo consult at this time - BMP q 72 hours Urinary Retention (asymptomatic) Constipation Has a Scanlon, will try to pull in the upcoming day. Has been having some bowel movements per nursing. - Tamsulosin 0.4 mg daily - Scanlon catheter now in place, plan to keep in place for at least 1 week - Increase Miralax to 17g BID, Senna 2 tabs BID Metabolic Encephalopathy -resolved Likely acute delirium in the setting of his room transfer. This was possibly exacerbated with his short term memory loss and having opioid pain medications -CTM LLE/Hip Pain At some point patient will need an arthroplasty but ideally he could recover from his BKA first. Per ortho no acute intervention such as surgery due to hx of bactermia and poorly controlled sugars. His pain is currently limiting his mobility and he is essentially bed bound and his ability to work with PT - Have been unable to connect with [facility] [place]ology regarding hip injection, will continue to reach out - improving control on current regimen - Tylenol 1000 q6 PRN, WORK[employer]' COMPENSATION MAGISTRATE tramadol - Robaxin 750mg q4 - lidocaine patch daily - continue MS Contin TID 15, 15, 30 with MSIR 15 q4 PRN for breakthrough pain - Gabapentin to 300mg tid - no acute plans from ortho regarding osteoarthritis management - following with with ortho regarding arthroplasty plans per note on Monday 01/01 - Limit weightbearing of LLE - Physical Therapy as able - Seen once now, recommend NICHOLE at discharge Sepsis due to MSSA Bacteremia Osteomyelitis of R foot 12/23 blood cultures: preliminary read: MSSA in anaerobic cultures and aerobic cultures TTE on 12/25 -> no evidence of IE but poor imaging - ID consulted for MSSA bacteremia, appreciate recs - Continue Cefazolin for 4 weeks from 12/24-01/20 (last dose on 01/20/21) - PICC placed 12/31 - Ortho consulted, appreciate recs - s/p BTK amputation on 12/29 - Non-weight bearing RLE - pillow under distal end of stump NOT knee. Goal: keep knee completely straight - Dressing to remain in place for 2-3 weeks post-op - Gabapentin to 300mg TID for neuropathic pain in the stump Pressure Wound - Buttocks Discovered overnight on 01/02. Wound care evaluation ordered. Have seen and left recommendations. Will not follow patient - Zinc paste or Zinc- Dimethicone spray to buttocks BID and PRN with pericare - strict q2hr turns - avoid placing pillows directly behind buttocks when turning - float heel off mattress - Disposable dri-deshawn chux, avoid cloth - waffle cushion when up in chair. Limit OOB time to 1-2hrs - No briefs - if no improvement in skin condition, consider First Step Cirrus mattress Psychological Well-Being Patient with some lability and some nursing concerns for waxing and waning awareness and possible delirium -CTM -Med Psych consult active, appreciate recs - Have seen patient and will continue to follow Spacing out labs to q 72 hours Non active: Ketoacidosis - resolved - BMP daily Leukocytosis: Resolved (12.41 -> 7.06) - trend fever curve and continue to monitor for resolution - low threshold to re-draw blood cultures if acutely symptomatic or a fever develops - CBC daily Deep Vein Thrombosis of the left lower extremity - Diagnosed in August 2020 - WORKERS' COMPENSATION MAGISTRATE Eliquis 5mg BID Hypothyroidism - continue WORKERS' COMPENSATION MAGISTRATE levothyroxine VTE Prophylaxis - WORKERS' COMPENSATION MAGISTRATE Eliquis 5mg BID Discharge Plan PT recommending NICHOLE Consults Infectious Disease, Ortho, Med Psych, and Nutrition Desiree Marcano DO Internal Medicine, PGY-1 Pager [phone]/[phone] 01/13/21 6:50 Cosigned by Ti Maloney MD at 01/14/2021 7:55 EST Associated attestation - Ti Maloney MD - 01/14/2021 0755 EST I interviewed and examined the patient. I have personally reviewed interval events, laboratory data, and imaging. I discussed the case with the inpatient resident team. I agree with findings and planof care as documented by the resident (or have edited in Blue). Ti Maloney MD 01/13/21 * Nguyen Khan RN - 01/13/2021 0152 EST Data: Pt alert and oriented X2.Pt is drowsy and confused but easily oriented to place. Pt has shortterm memory loss due to hx of brain tumor. Pt on Q2 turns. Pt diabetic and had low sugars during day 11. Pt also has video monitor in room due to slipping from bed to the floor during the day as well. Pt report of severe 10/10 left hip pain. Action: All medications given as per MAY. PRN morphine given. Blood sugar checked at 0000 to be 66. notified and apple juice was given. After 15 minutes, blood sugar was up to 78. And 1 hour laterwas 79. Response: Pt sleeping in bed. Q2 turns completed. Will continue to monitor. NGUYEN KHAN RN 01/13/2021 1:52 * Krystal Alonso RN - 01/12/2021 1647 EST Post Fall WILBUR Note Data: Patient found on floor at 1630. Initial assessment Vital Signs BP: 138/79 Pulse: 103 Heart Rate: (!) 107 BPM Resp: 18 Temp: 36.9 ??C (98.4 ??F) SpO2: 100 % O2 Flow Rate (L/min): 0 l/min O2 Device: None Post Fall Assessment - head injury factors * Level of Consciousness: Alert Vomiting?: No Orientation Level: Oriented to person, Oriented to time Confusion?: Moderate Worsening Headache?: No Sedating Meds with in last 24 hours?: Yes Anticoagulant Use?: No Facial Trama?: No Seizure Activity?: No. Dr. Gomez notified @ 2510. [employer] Nurse [employer] Supervisor notified @ 0150. Action: Patient assisted back to bed after cleared by MD and with staff assistance. Patient placed on high fall precautions. Fall careplan updated. Patient is on Anticoagulant/Antiplatelet drugs. Hold these drugs pending conversation with provider regarding risk for bleeding. Response: PT was lifted back to bed with jair lift. 0.6mg dilaudid given prior to lifting. PT is back in bed reports no unusual places of pain or distress. Will continue to monitor. KRYSTAL ALONSO RN 01/12/2021 16:48 * eSa Gomez MD - 01/12/2021 1621 EST Brief Update Note: Called by RN at 1609 for patient fall. RN reported that the fall was witnessed. Patient was sittingat the side of the bed when he slid off of the bed onto his bum. S: Pt denies LOC. O: VITALS: BP 138/79 (BP Cuff Location: Left arm, BP Patient Position: Supine) Pulse 103 Temp 36.9 ??C (98.4 ??F) (Oral) Resp 18 Ht 185.4 cm (73) Wt (!) 115.7 kg (255 lb 1.2 oz) SpO2 100% BMI 33.65 kg/m?? 24 hr Ranges: Temp: [36.9 ??C (98.4 ??F)-36.9 ??C (98.5 ??F)] , Pulse: [103] , Resp: [18-20] , BP: (119-138)/(70-79) , SpO2: [96 %-100 %] I&O: Intake/Output Summary (Last 24 hours) at 01/12/2021 1621 Last data filed at 01/11/2021 204 Gross per 24 hour Intake 120 ml Output 325 ml Net -205 ml Gen: patient examined at the bedside and was in NAD; alert and appropriately responsive to questions Neuro: pt orientated to year, location, name. Pupils equal and reactive. EOMI Moves all extremities well, sensation intact on arms, legs, feet. HEENT: no visualized head trauma, lacerations, subcutaneous fluid collections, ecchymoses. CV/Lungs: MSK: -neck/spine: no cervical or lumbar spinal tenderness; able to touch chin to chest -Upper extremities: full ROM in shoulders, biceps, wrists. -Lower extremities/hip: full ROM in ankle, knee, hip. Skin: No visualized lacerations, ecchymoses, abrasions. A/P: DDx: Vasovagal, postural hypotention, mechanical fall. - Fall orderset - Currently no indication for CT head - Fall precautions SEA GOMEZ MD 01/12/2021 16:21 * Krystal Alonso RN - 01/12/2021 8875 EST Data: Assumed care at 0700. PT is 10/10 pain at start of shift, scheduled pain meds given along with 1x dose of 0.6mg IV dilaudid. PT struggles to move in bed due to severe pain in L. Hip with movements. PT orientation status has waxed and weaned throughout shift, primarily oriented to self and time. PT needing reorientation on place throughout the day. Scanlon is intact and draining. PT was found on the ground at 1630, unwitnessed selena, notified. Before lunch PT had a blood sugar of 50, notified asymptomatic, PT was given several glasses of apple juice. Sugar slowly climbed back up to 160. Action: Scheduled and PRN pain meds. Splinting areas of pain during repositioning efforts. Consistent reorientation. All fall paperwork filed, MD team updated and assessed patient. Frequent blood sugar checks. Response: PT pain has gotten better without movement after 1x dose of dilaudid. PT pain still goes to 10/10 with any movement of L. Hip. KRYSTAL ALONSO RN 01/12/2021 15:46 * Mars Ledezma - 01/12/2021 1536 EST Case Management Note: Recommended Discharge Destination: ??[facility]. ??Pt has [facility] all [facility], and [place]. He has not had any bed offers to date. This director underwriter sales spoke with [facility] outreach coordinator Millie to discuss pt's candidacy. They cannot accommodate IV abx q8 hr (IV cefazolin q[address], however last dose is scheduled 01/20). Millie also wants to confirm pt's discharge plan s/p [facility]. Pt's plan is to go back to live with his ex-spouse Nguyen in [place] after discharge from [facility]. Millie would like confirmation from pt's ex-spouse that he can return. If so, they could consider him for admission. Met with pt at bedside for check in. Provided him with [facility] update and informed him that [facility] is following. Pt reports he would be willing to go to [facility] if they accept him. It is still hisintention to return live with Nguyen after he discharges from [facility]. He continues to report he feels safe with Nguyen. He gave this director underwriter sales permission to speak with Nguyen to confirm that he can return. This director underwriter sales called and left a message for pt's ex-spouse Nguyen Scott requesting call back. Will continue to follow for discharge planning. Mars Ledezma RN, LANDSCAPING SPECIALIST, [facility] Pager # [phone] * Debby Morataya - 01/12/2021 1307 EST Nutrition Assessment Note: Reassessment BACKGROUND DATA Subjective: Pt reports overall great appetite, eats nearly all of his trays except yesterday he wasn't feeling as hungry. Appetite was back to normal this morning. Likes having his meal trays just show up. Current Nutrition Orders: Consistent Carbohydrate diet -- house select trays Physical Findings: Overall appearance: well nourished Digestive Systems: Last BM 01/11; distended abdomen Skin: excoriation noted in flowsheets Anthropometrics: Height: 6' 1 Weights Filed This Admission 12/22/20 1933 12/29/20 1401 Weight: (!) 115.7 kg (255 lb) (!) 115.7 kg (255 lb 1.2 oz) Body mass index is 33.65 kg/m??. Pertinent Medications: Medication Route Frequency ??? ascorbic acid (vitamin C) (VITAMIN C) tablet 500 mg oral DAILY ??? cholecalciferol (Vitamin D3) tablet 2,000 Units oral DAILY ??? insulin aspart U-100 (NOVOLOG FLEXPEN) injection 18 Units subcutaneous TID WC ??? insulin aspart U-100 (NOVOLOG FLEXPEN) injection subcutaneous TID WC ??? insulin aspart U-100 (NOVOLOG FLEXPEN) injection subcutaneous QHS ??? insulin glargine (LANTUS SOLOSTAR/SEMGLEE) injection pen 60 Units subcutaneous QHS ??? levothyroxine (SYNTHROID) tablet 112 mcg oral DAILY BEFORE BREAKFAST ??? polyethylene glycol 3350 (MIRALAX) packet 17 g oral BID ??? senna (SENOKOT) tablet 2 Tablet oral BID Pertinent Labs: Lab Results Component Value Date/Time HGBA1C 13.9 (H) 12/23/2020 07:02 GLUCOSEPOC 89 01/12/2021 12:46 GLUCOSEPOC 69 (L) 01/12/2021 12:33 GLUCOSEPOC 56 (L) 01/12/2021 12:00 GLUCOSEPOC 50 (L) 01/12/2021 11:36 GLUCOSEPOC 141 (H) 01/12/2021 07:24 Estimated Nutrition Intake: Mostly 75-100% of his meals, did not eat much yesterday ASSESSMENT: Patient overall with good appetite, had one day of decreased intake but he reports that has resolved. He does best with automatic meal trays. Nutrition Risk Level: Low (3) MEDICAL NUTRITION THERAPY - UPDATED PLAN Oral Nutrition: - Continue consistent carbohydrate diet - Will continue automatic meal trays Debby Morataya RD (Betsy), CD, [facility] (Call PAS or use Intelliweb to page RD covering this unit) * Desiree Marcano, DO - 01/12/2021 0641 EST Medicine Progress Note Service Date: 01/12/2021 Admit Date: 12/22/2020 19:00 Reason for Admission: 60 y.o. male admitted with a chief complaint of left leg pain and now with a principal diagnosis of management of severe diabetic right foot wound. 24 Hour Events: NAEO Subjective/Objective Subjective When seen this morning patient appeared to be acutely in pain and was very confused. He was alert only to person and that he was at home making statements such as I need to get up and move to the living room. Seen later in the afternoon and his mental status had improved. He was aware that he was at the hospital and after prompting remembered his transfer to a new room overnight. Review of Systems A ten point review of systems was performed and was negative except for pertinent positives noted in the HPI Objective Vital Signs Temp: [36.6 ??C (97.9 ??F)-36.9 ??C (98.5 ??F)] , Heart Rate: [80 BPM-114 BPM] , Resp: [18-30] , BP: (105-130)/(70-79) , SpO2: [96 %-98 %] Physical Exam General appearance: Cooperative, alert Face: facial asymmetry with right facial droop (chronic) Lungs: clear to auscultation bilaterally, non labored breathing Heart: regular rate and rhythm, S1, S2 normal Abdomen: soft, non-tender; bowel sounds normal; no masses, no organomegaly Neurologic: Alert and oriented to person only Extremities: extremities warm, no cyanosis or edema. L hip tender to palpation. R stump elevated onpillow and wrapped. Able to lift R leg easily, L leg mobility very limited by pain : Scanlon in place Pulses: LLE DP's palpable, RLE footless Skin: Skin color, temperature, turgor normal. Psych: quite tearful during the interview when discussing his pain Is PICC or central line present? Yes, it is still present. The line is still required. Labs Recent Labs 01/11/21 0803 WBC 8.57 RBC 3.15* HGB 9.7* HCT 28.9* MCV 92 MCH 30.8 MCHC 33.6 PLT 398* Recent Labs 01/11/21 0803 NA 138 K 4.5 CL 98 CO2 28 BUN 21 CREATININE 0.62* Glucose: 143/106/126/169 Hemoglobin A1C: 13.9 Lab Results Component Value Date CRP 219.2 (H) 12/27/2020 CRPP 11.7 (H) 03/09/201612/23 Bone Biopsy: Preliminary result: moderate Strep agalactiae (Group B) 12/23 Blood Cultures: Preliminary result: Anaerobic bottle positive for MSSA at 18 hours. Aerobic positive for MSSA at 23 hours 12/24 Blood Cultures: NGTD Imaging No new imaging Assessment/Plan Assessment Jeff Scott is a 60 y.o. 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 Sympoms improved with dilaudid and antibiosis. Seen by ortho and underwent right BTK amputation on 12/29 for infection control. Surgical course was uncomplicated. However, post- operative mobility has been limited by severe left hip pain with evidence of OA and degenerative labrum tears by MRI. However, he is not a current surgical can didate. Will maintain current pain regimen with goal of continue to encourage mobility. We will continue to titrate his insulin for better glucose control. He is awaiting [facility]. Plan Urinary Retention (asymptomatic) Constipation Patient was not voiding, bladder scan, 1 time straight cath and continued retention Likely combination of opioid pain medication as well as opioid-induced constipation - Tamsulosin 0.4 mg daily - Scanlon catheter now in place, plan to keep in place for at least 1 week - Increase Miralax to 17g BID, Senna 2 tabs BID Metabolic Encephalopathy Likely acute delirium in the setting of his room transfer. This was possibly exacerbated with his short term memory loss and having opioid pain medications Resolved by this afternoon -CTM LLE/Hip Pain At some point patient will need an arthroplasty but ideally he could recover from his BKA first. Per ortho no acute intervention such as surgery due to hx of bactermia and poorly controlled sugars. His pain is currently limiting his mobility and he is essentially bed bound and his ability to work with PT - Follow up with [facility] radiology who are amenable to inpatient hip injection this week once order hassarahi submitted - improving control on current regimen - Tylenol 1000 q6 PRN, WORKERS' COMPENSATION MAGISTRATE tramadol - Robaxin 750mg q4 - lidocaine patch daily - continue MS Contin TID 15, 15, 30 with MSIR 15 q4 PRN for breakthrough pain - Gabapentin to 300mg tid - no acute plans from ortho regarding osteoarthritis management - following with with ortho regarding arthroplasty plans per note on Monday 01/01 - Limit weightbearing of LLE - Physical Therapy as able - Seen once now, recommend [facility] at discharge Sepsis due to MSSA Bacteremia Osteomyelitis of R foot 12/23 blood cultures: preliminary read: MSSA in anaerobic cultures and aerobic cultures TTE on 12/25 -> no evidence of IE but poor imaging - ID consulted for MSSA bacteremia, appreciate recs - Continue Cefazolin for 4 weeks from 12/24-01/20 (last dose on 01/20/21) - PICC placed 12/31 - Ortho consulted, appreciate recs - s/p BTK amputation on 12/29 - Non-weight bearing RLE - pillow under distal end of stump NOT knee. Goal: keep knee completely straight - Dressing to remain in place for 2-3 weeks post-op - Gabapentin to 300mg TID for neuropathic pain in the stump Type 2 Diabetes, on home insulin, poorly controlled, with hyperglycemia and persistently elevated AM fasting levels. Improving since latest basal adjustment. Continue to monitor for improvement. WORKERS' COMPENSATION MAGISTRATE regimen of 45 units glargine daily with 10 units lispro with meals Hemaglobin A1C 13.9 Had low blood sugars this afternoon to 50, held his scheduled meal time, will continue to monitor and if persists will dose reduce his insulin - Continue 60 U glargine nightly - 18 units aspart with meals - Target BG 140-180 - Nutrition consulted for dietary recs and patient education, appreciate recs - Vit C 500mg daily - Vit D3 2000 units daily - Hold on Endo consult at this time - BMP q 72 hours Pressure Wound - Buttocks Discovered overnight on 01/02. Wound care evaluation ordered. Have seen and left recommendations. Will not follow patient - Zinc paste or Zinc- Dimethicone spray to buttocks BID and PRN with pericare - strict q2hr turns - avoid placing pillows directly behind buttocks when turning - float heel off mattress - Disposable dri-deshawn chux, avoid cloth - waffle cushion when up in chair. Limit OOB time to 1-2hrs - No briefs - if no improvement in skin condition, consider First Step Cirrus mattress Psychological Well-Being Patient with some lability and some nursing concerns for waxing and waning awareness and possible delirium -CTM -Med Psych consult active, appreciate recs - Have seen patient and will continue to follow Spacing out labs to q 72 hours Non active: Ketoacidosis - resolved - BMP daily Leukocytosis: Resolved (12.41 -> 7.06) - trend fever curve and continue to monitor for resolution - low threshold to re-draw blood cultures if acutely symptomatic or a fever develops - CBC daily Deep Vein Thrombosis of the left lower extremity - Diagnosed in August 2020 - WORKERS' COMPENSATION MAGISTRATE Eliquis 5mg BID Hypothyroidism - continue WORKERS' COMPENSATION MAGISTRATE levothyroxine VTE Prophylaxis - WORKERS' COMPENSATION MAGISTRATE Eliquis 5mg BID Discharge Plan PT recommending [facility] Consults Infectious Disease, Ortho, Med Psych, and Nutrition Desiree Marcano DO Internal Medicine, PGY-1 Pager [phone]/Cortex 01/12/21 6:41 Cosigned by Ti Maloney MD at 01/13/2021 8:13 EST Associated attestation - Ti Maloney MD - 01/13/2021 0813 EST I interviewed and examined the patient. I have personally reviewed interval events, laboratory data, and imaging. I discussed the case with the inpatient resident team. I agree with findings and planof care as documented by the resident (or have edited in Blue). Ti Maloney MD 01/12/21 * Nguyen Khan RN - 01/12/2021 0218 EST Data: Pt alert and oriented x3. Pt can sometimes be confused and needs reorienting but is easily reminded. Pt also experiences short term memory loss. Pt in pain and rates it 9/10 in his left hip, with dull pain in his right leg. Pt has scanlon in place. Action: All medications given as per MAR. Pt received PRN Dilaudid for pain. Pt was turned Q2 throughout the night. Response: Pt asleep in bed with VSS. Will continue to monitor. NGUYEN KHAN RN 01/12/2021 2:19 * Nena Allison - 01/11/2021 1137 EST Psychotherapy Progress Note Name: Jeff Scott : 1960 Date of Service: 01/11/2021 Referring Provider: Jason Isaac* Primary Care Provider: Jason Batres MD (General) Start Time: 11:37 End Time: 12:04 Duration of Session: 31 Minutes Session Type: 77090: Psychotherapy, 16-37 minutes with patient Problem: Jeff Scott is a 60 y.o., White, male referred for medical psychology services to address coping with psychosocial stressors and amputation of foot. 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 Subjective/Session Content: Jeff consented to Med Psych follow-up. Due to cognitive impairments, Jeff did not recognize clinician. Clinician provided him with a summary of previous Med Psych consults including APS report madeon his behalf. Clinician reviewed APS's findings which indicated that no further investigation was necessary. Jeff requested clinician call his older brother, Terry to update Terry on his progress and inform him of APS report. Clinician received Jeff's verbal consent to speak to his brother Terry. Clinician provided a supportive frame for Jeff to process his pending divorce and current medical presentation. He reported frustration related to his cognitive impairments which impact his short-term memory. Notably, Jeff's cognitive functioning appeared to deteriorate as consult continued and he became increasingly fatigued. Objective: Appearance: Tense posture Behavior: cooperative and some psychomotor aggitation as he became increasingly confused and frustrated Speech: of normal rate, tone and volume Mood: anxious and frustrated as consult continued and cognitive functioning declined Affect: congruent with reported mood and appropriately varied relative to content and context of discussion Thought Process: logicial when he was able to attune to consult; Jeff became increasingly confusedas consult continued Thought Content: no apparent abnormalities of thought content Cognitive (MMSE if indicated): Poor Concentration, Confused and Impaired Memory Suicidality: No evidence of suicidality. Pt's thoughts were future and goal oriented. Assessment: Jeff is a 60 y.o., White, male referred to our service in order to address coping with psychosocial stressors and pending amputation of foot. He endorsed depressive sxs (depressed mood, tearfulness). Jeff will likely benefit from supportive psychotherapy to process medical process and other stressors. He may also benefit from more frequent, shorter Med Psych consults as his cognitive functioning appears to deteriorate relative to length of consult. ?? Diagnostic Impressions: Adjustment with depressed mood ?? Summary of Goals: Goal 1: stabilize mood Goal 2: improve coping Goal 3: process emotional eperience of medical presentation as needed ?? Anticipated response to treatment: Reduce distress and increase positive coping. ? Treatment Plan: 1. Med psych will continue to follow patient throughout their admission. 2. Utilize supportive psychotherapy to process emotional response to medical presentation as pt is interested. 3. Utilize supportive psychotherapy to identify adaptive coping strategies for psychosocial stressors. ? Frequency: 1-2 Times/Week Expected duration of services: Services remain available to the patient and family throughout the patient's hospitalization. ?? Recommendations for Healthcare Providers: Pt has some cognitive deficits and would benefit from providers speaking slowly with frequent pauses to allow for pt to process information. ?? Thank you for including us in this patient's care today. Please reach out if you have any questions. ?? Nena Allison M.S. Renewals Manager Pager #: [phone] Cosigned by Patrica Lui, PhD at 01/12/2021 15:47 EST Associated attestation - Patrica Lui, PhD - 01/12/2021 0267 EST I have read and reviewed this note. Clinical supervision will include discussion of this session. Iconcur with the internal consultant's findings and treatment plan. Services provided were routine and within thecompetence of this internal consultant. Patrica Lui, Ph.D. Licensed Psychologist-Doctorate Clinical Histotechnologist Supervisor * Desiree Marcano DO - 01/11/2021 0656 EST Medicine Progress Note Service Date: 01/11/2021 Admit Date: 12/22/2020 19:00 Reason for Admission: 60 y.o. male admitted with a chief complaint of left leg pain and now with a principal diagnosis of management of severe diabetic right foot wound. 24 Hour Events: NAEO Subjective/Objective Subjective Patient was seen this morning. He was shifting himself in bed and although he was in pain he was able to do this. He was also pleased by the work he was able to complete with PT yesterday. His biggest complaint continues to be his left hip pain. He reported no other symptoms including nausea, vomiting, shortness of breath. Review of Systems A ten point review of systems was performed and was negative except for pertinent positives noted in the HPI Objective Vital Signs Temp: [36.7 ??C (98.1 ??F)-37.1 ??C (98.8 ??F)] , Heart Rate: --, Resp: [20-22] , BP: (117-132)/(68-73) , SpO2: [93 %-97 %] Physical Exam General appearance: Cooperative, alert Face: facial asymmetry with right facial droop (chronic) Lungs: clear to auscultation bilaterally, non labored breathing Heart: regular rate and rhythm, S1, S2 normal Abdomen: soft, non-tender; bowel sounds normal; no masses, no organomegaly Neurologic: AAO to person and place Extremities: extremities warm, no cyanosis or edema. L hip tender to palpation. R stump elevated onpillow and wrapped. Able to lift R leg easily, L leg mobility very limited by pain : Scanlon in place Pulses: LLE DP's palpable, RLE footless Skin: Skin color, temperature, turgor normal. Psych: quite tearful during the interview when discussing his pain Is PICC or central line present? Yes, it is still present. The line is still required. Labs Recent Labs 01/09/21 0547 WBC 7.29 RBC 3.29* HGB 9.7* HCT 29.7* MCV 90 MCH 29.5 MCHC 32.7* PLT 375 Recent Labs 01/09/21 0547 NA 134* K 4.5 CL 98 CO2 28 BUN 19 CREATININE 0.54* Glucose: 143/106/126/169 Hemoglobin A1C: 13.9 Lab Results Component Value Date CRP 219.2 (H) 12/27/2020 CRPP 11.7 (H) 03/09/201612/23 Bone Biopsy: Preliminary result: moderate Strep agalactiae (Group B) 12/23 Blood Cultures: Preliminary result: Anaerobic bottle positive for MSSA at 18 hours. Aerobic positive for MSSA at 23 hours 12/24 Blood Cultures: NGTD Imaging No new imaging Assessment/Plan Assessment Jeff Scott is a 60 y.o. 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 Sympoms improved with dilaudid and antibiosis. Seen by ortho and underwent right BTK amputation on 12/29 for infection control. Surgical course was uncomplicated. However, post- operative mobility has been limited by severe left hip pain with evidence of OA and degenerative labrum tears by MRI. However, he is not a current surgical can didate. Will maintain current pain regimen with goal of continue to encourage mobility. We will continue to titrate his insulin for better glucose control. He is awaiting [facility]. Plan Urinary Retention (asymptomatic) Constipation Patient was not voiding, bladder scan, 1 time straight cath and continued retention Likely combination of opioid pain medication as well as opioid-induced constipation - Tamsulosin 0.4 mg daily - Scanlon catheter now in place, plan to keep in place for at least 1 week - Increase Miralax to 17g BID, Senna 2 tabs BID LLE/Hip Pain At some point patient will need an arthroplasty but ideally he could recover from his BKA first. Per ortho no acute intervention such as surgery due to hx of bactermia and poorly controlled sugars. His pain is currently limiting his mobility and he is essentially bed bound and his ability to work with PT - Follow up with [facility] radiology who are amenable to inpatient hip injection this week once order maricruz submitted - improving control on current regimen - Tylenol 1000 q6 PRN, WORKERS' COMPENSATION MAGISTRATE tramadol - Robaxin 750mg q4 - lidocaine patch daily - continue MS Contin TID 15, 15, 30 with MSIR 15 q4 PRN for breakthrough pain - Gabapentin to 300mg tid - no acute plans from ortho regarding osteoarthritis management - following with with ortho regarding arthroplasty plans per note on Monday 01/01 - Limit weightbearing of LLE - Physical Therapy as able - Seen once now, recommend [facility] at discharge Sepsis due to MSSA Bacteremia Osteomyelitis of R foot 12/23 blood cultures: preliminary read: MSSA in anaerobic cultures and aerobic cultures TTE on 12/25 -> no evidence of IE but poor imaging - ID consulted for MSSA bacteremia, appreciate recs - Continue Cefazolin for 4 weeks from 12/24-01/20 (last dose on 01/20/21) - PICC placed 12/31 - Ortho consulted, appreciate recs - s/p BTK amputation on 12/29 - Non-weight bearing RLE - pillow under distal end of stump NOT knee. Goal: keep knee completely straight - Dressing to remain in place for 2-3 weeks post-op - Gabapentin to 300mg TID for neuropathic pain in the stump Type 2 Diabetes, on home insulin, poorly controlled, with hyperglycemia and persistently elevated AM fasting levels. Improving since latest basal adjustment. Continue to monitor for improvement. WORKERS' COMPENSATION MAGISTRATE regimen of 45 units glargine daily with 10 units lispro with meals Hemaglobin A1C 13.9 - Continue 60 U glargine nightly - 18 units aspart with meals - Target BG 140-180 - Nutrition consulted for dietary recs and patient education, appreciate recs - Vit C 500mg daily - Vit D3 2000 units daily - Hold on Endo consult at this time - BMP q 72 hours Pressure Wound - Buttocks Discovered overnight on 01/02. Wound care evaluation ordered. Have seen and left recommendations. Will not follow patient - Zinc paste or Zinc- Dimethicone spray to buttocks BID and PRN with pericare - strict q2hr turns - avoid placing pillows directly behind buttocks when turning - float heel off mattress - Disposable dri-deshawn chux, avoid cloth - waffle cushion when up in chair. Limit OOB time to 1-2hrs - No briefs - if no improvement in skin condition, consider First Step Cirrus mattress Psychological Well-Being Patient with some lability and some nursing concerns for waxing and waning awareness and possible delirium -CTM -Med Psych consult active, appreciate recs - Have seen patient and will continue to follow Spacing out labs to q 72 hours Non active: Ketoacidosis - resolved - BMP daily Leukocytosis: Resolved (12.41 -> 7.06) - trend fever curve and continue to monitor for resolution - low threshold to re-draw blood cultures if acutely symptomatic or a fever develops - CBC daily Deep Vein Thrombosis of the left lower extremity - Diagnosed in August 2020 - WORKERS' COMPENSATION MAGISTRATE Eliquis 5mg BID Hypothyroidism - continue WORKERS' COMPENSATION MAGISTRATE levothyroxine VTE Prophylaxis - WORKERS' COMPENSATION MAGISTRATE Eliquis 5mg BID Discharge Plan PT recommending NICHOLE Consults Infectious Disease, Ortho, Med Psych, and Nutrition Desiree Marcano DO Internal Medicine, PGY-1 Pager [phone]/Cortex 01/11/21 6:56 Cosigned by Ti Maloney MD at 01/12/2021 8:19 EST Associated attestation - Ti Maloney MD - 01/12/2021 0819 EST I interviewed and examined the patient. I have personally reviewed interval events, laboratory data, and imaging. I discussed the case with the inpatient resident team. I agree with findings and planof care as documented by the resident (or have edited in Blue). Ti Maloney MD 01/11/21 * SeekerJs MD - 01/11/2021 0655 EST Orthopaedic Progress Note PROBLEM: Right transtibial amputation 12/29 24 HOUR EVENTS: NAEO SUBJECTIVE: Pain currently tolerable. No other complaints, denies CP/SOB, new paresthesias. He is confused upon awakening and believes that is Sunday but is easily reoriented. I helped reposition hisleft leg. OBJECTIVE: Gen: NAD, AOx3 RLE: Dressing C/D/I no strikethrough on residual limb splinting Palpable femoral pulse Able to maintain straight leg raise, 5/5 iliopsoas Palpable femoral pulse Labs: WBC/Hgb/Hct/Plts: 7.29/9.7/29.7/375 (01/09 547) Na/K/Cl/CO2: 134/4.5/98/28 (01/09 547) BUN/Cr/glu/ALT/AST/amyl/lip: 19/0.54/245/--/--/--/-- (01/09 547) ASSESSMENT/PLAN:A/P patient doing well post BKA. Difficulty with movement from left hip pain. Pending NICHOLE placement Nonweightbearing right lower extremity, protected, partial weightbearing left lower extremity Activity as tolerated Elevate right residual limb in extension ABX per ID Okay for DVT prophylaxis Pending placement Medical psychology Tight glycemic control to facilitate wound healing Will need followup at approximately 4 weeks for wound check Js Meza MD 01/11/2021 6:56 * Nikia Ramirez, RN - 01/10/2021 1541 EST Data: Patient care assumed at 0700. Patient presented POD 11 R BKA. Patient rating mello 9/10 in lefthip, making repositioning difficult. Scanlon in place and draining. A&Ox3 but difficulty with short term memory. Pulses intact. Action: Administered medications as ordered. Hourly rounding completed. Q2 turns administered. Response: Patient resting comfortably. VSS. WCTM. Blood pressure 117/71, pulse 97, temperature 36.7 ??C (98.1 ??F), temperature source Oral, resp. rate 20, height 185.4 cm (73), weight (!) 115.7 kg (255 lb 1.2 oz), SpO2 96 %. NIKIA RAMIREZ RN 01/10/2021 15:41 * Shelly Garcia, PT - 01/10/2021 1433 EST [facility] Rehabilitation Therapy Acute Therapy [facility] Physical Therapy Encounter Note Date of Service: 01/10/2021 SUBJECTIVE: Patient/Caregiver States: Okay I need you to go slowly. I want to work on getting moving, I just dont know what to do. Numeric Pain Scale Numeric Pain Level (Scale 1-10): 6 Primary Pain Site Assessment Pain Location: Hip Pain Orientation : Left OBJECTIVE: Interventions Completed Today: Time: 1030 Total Treatment Time (minutes): 45 Timed Code Treatment Minutes: 45 Procedures Q-Z: Therapeutic activities Therapeutic Activities Minutes: 45 Therapeutic Activities 1: Supine>sit with mod Ax1. Cues for sequencing throughout. Patient required significant time to complete transfer due to pain. Therapeutic Activities 2: Static sitting with close supervision. Therapeutic Activities 3: Lateral scooting 3 x 5 with mod Ax1. Improved ability to clear coccyx from ebd with each attempt. Distance scooted increased with each attempt. Therapeutic Activities 4: Sit>supine with mod Ax1. Required signfiicant time to complete transfer due to pain. Required step hawk cues for sequencing throughout. Interventions Comments: Able to boost in bed with min contact assist x1. Patient Status at the End of the Therapy Session, The patient was left in the: bed with the: Call larson in reach Additional information is available in the medical record. General Assessment: No problems noted Patient/Family Education: Mobility, Transfers, and Gait: Bed mobility, Functional transfers, Mobility recommendations Recommendations: Discharge recommendations/planning Therapy Specific: Role of physical therapy Learner: Patient Outcome: Needs practice, Requires assist Team Communication: Notified: Nurse When: Prior to therapy session, After therapy session By: [id number] communication Mobility and Gait: Mobility status, Encouraging patient to actively participate in rolling and bed mobility, Need for nursing to use mechanical lift to assist patient out of bed to recliner Patient Status and Referrals: Patient status ASSESSMENT: Patient with improved tolerance to activity today, but continues with signficant left hip pain. Patient motivated to progress functional mobility, therefore anticipate with increased opportunities for OOB that he will continue to improve. Patient requires increased time and education to understand r ecommendations, but once given enough time is able to complete all tasks.Continue to recommend NICHOLE to facilitate maximal functional outcome. The patient's rehabilitation potential is: good Physical Therapy is medically necessary to: address these body structure/function impairments, activity limitations, and participation restrictions, improve safety and independence The patient: requires sub-acute rehabilitation as next level of care for multiple therapy disciplines at a lower intensity with the expectation to return to prior level of function/living situation. PLAN: Continue per established treatment plan Further Data: Functional mobility assessment Recommended Discharge Destination: Subacute rehabilitation Therapy Specific Services: Physical therapy Equipment Recommended: To be determined by next provider Shelly Garcia, PT 01/10/2021 14:49 * Desiree Marcano, - 01/10/2021 0705 EST Medicine Progress Note Service Date: 01/10/2021 Admit Date: 12/22/2020 19:00 Reason for Admission: 60 y.o. male admitted with a chief complaint of left leg pain and now with a principal diagnosis of management of severe diabetic right foot wound. 24 Hour Events: NAEO Subjective/Objective Subjective Patient was seen this afternoon after having been just been and turned. He reported a significant amount of pain in his left hip due to his movement. He continues to report no issues with his right stump. He believes he had a bowel movement yesterday, though was uncertain as he has difficulty usingthe bedpan. He denies any chest pain shortness of breath nausea or vomiting. Review of Systems A ten point review of systems was performed and was negative except for pertinent positives noted in the HPI Objective Vital Signs Temp: [36.6 ??C (97.9 ??F)-36.8 ??C (98.3 ??F)] , Heart Rate: [92 BPM-116 BPM] , Resp: [18-20] , BP: (117-123)/(69-73) , SpO2: [96 %-98 %] Physical Exam General appearance: Cooperative, alert Face: facial asymmetry with right facial droop (chronic) Lungs: clear to auscultation bilaterally, non labored breathing Heart: regular rate and rhythm, S1, S2 normal Abdomen: soft, non-tender; bowel sounds normal; no masses, no organomegaly Neurologic: AAO to person and place Extremities: extremities warm, no cyanosis or edema. L hip tender to palpation. R stump elevated onpillow and wrapped. Able to lift R leg easily, L leg mobility very limited by pain : Scanlon in place Pulses: LLE DP's palpable, RLE footless Skin: Skin color, temperature, turgor normal. Psych: quite tearful during the interview when discussing his pain Is PICC or central line present? Yes, it is still present. The line is still required. Labs Recent Labs 01/09/21 0547 WBC 7.29 RBC 3.29* HGB 9.7* HCT 29.7* MCV 90 MCH 29.5 MCHC 32.7* PLT 375 Recent Labs 01/09/21 0547 NA 134* K 4.5 CL 98 CO2 28 BUN 19 CREATININE 0.54* Glucose: 143/106/126/169 Hemoglobin A1C: 13.9 Lab Results Component Value Date CRP 219.2 (H) 12/27/2020 CRPP 11.7 (H) 03/09/201612/23 Bone Biopsy: Preliminary result: moderate Strep agalactiae (Group B) 12/23 Blood Cultures: Preliminary result: Anaerobic bottle positive for MSSA at 18 hours. Aerobic positive for MSSA at 23 hours 12/24 Blood Cultures: NGTD Imaging No new imaging Assessment/Plan Assessment Jeff Scott is a 60 y.o. 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 Sympoms improved with dilaudid and antibiosis. Seen by ortho and underwent right BTK amputation on 12/29 for infection control. Surgical course was uncomplicated. However, post- operative mobility has been limited by severe left hip pain with evidence of OA and degenerative labrum tears by MRI. Orthopedics recommended against any hip s urgery at this time due to risk of complications given A1C levels and bacteremia. PT has seen and begun to work with him and recommend NICHOLE at discharge at this time. Will maintain current pain regimen with goal of continue to encourage mobility. We will continue to titrate his insulin for better glu cose control. Plan Urinary Retention (asymptomatic) Constipation Patient was not voiding, bladder scan, 1 time straight cath and continued retention Likely combination of opioid pain medication as well as opioid-induced constipation - Tamsulosin 0.4 mg daily - Scanlon catheter now in place, plan to keep in place for at least 1 week - Increase Miralax to 17g BID, Senna 2 tabs BID LLE/Hip Pain At some point patient will need an arthroplasty but ideally he could recover from his BKA first. Per ortho no acute intervention such as surgery due to hx of bactermia and poorly controlled sugars. His pain is currently limiting his mobility and he is essentially bed bound and his ability to work with PT - Will follow up with [facility] radiology who are amenable to inpatient hip injection this week once order has been submitted - improving control on current regimen - Tylenol 1000 q6 PRN, WORKERS' COMPENSATION MAGISTRATE tramadol - Robaxin 750mg q4 - lidocaine patch daily - continue MS Contin TID 15, 15, 30 with MSIR 15 q4 PRN for breakthrough pain - Gabapentin to 300mg tid - no acute plans from ortho regarding osteoarthritis management - following with with ortho regarding arthroplasty plans per note on Monday 01/01 - Limit weightbearing of LLE - Physical Therapy as able - Seen once now, recommend NICHOLE at discharge Sepsis due to MSSA Bacteremia Osteomyelitis of R foot 12/23 blood cultures: preliminary read: MSSA in anaerobic cultures and aerobic cultures TTE on 12/25 -> no evidence of IE but poor imaging - ID consulted for MSSA bacteremia, appreciate recs - Continue Cefazolin for 4 weeks from 12/24-01/20 (last dose on 01/20/21) - PICC placed 12/31 - Ortho consulted, appreciate recs - s/p BTK amputation on 12/29 - Non-weight bearing RLE - pillow under distal end of stump NOT knee. Goal: keep knee completely straight - Dressing to remain in place for 2-3 weeks post-op - Gabapentin to 300mg TID for neuropathic pain in the stump Type 2 Diabetes, on home insulin, poorly controlled, with hyperglycemia and persistently elevated AM fasting levels. Improving since latest basal adjustment. Continue to monitor for improvement. WORKERS' COMPENSATION MAGISTRATE regimen of 45 units glargine daily with 10 units lispro with meals Hemaglobin A1C 13.9 - Continue 60 U glargine nightly - 18 units aspart with meals - Target BG 140-180 - Nutrition consulted for dietary recs and patient education, appreciate recs - Vit C 500mg daily - Vit D3 2000 units daily - Hold on Endo consult at this time - BMP daily Pressure Wound - Buttocks Discovered overnight on 01/02. Wound care evaluation ordered. Have seen and left recommendations. Will not follow patient - Zinc paste or Zinc- Dimethicone spray to buttocks BID and PRN with pericare - strict q2hr turns - avoid placing pillows directly behind buttocks when turning - float heel off mattress - Disposable dri-deshawn chux, avoid cloth - waffle cushion when up in chair. Limit OOB time to 1-2hrs - No briefs - if no improvement in skin condition, consider First Step Cirrus mattress Psychological Well-Being Patient with some lability and some nursing concerns for waxing and waning awareness and possible delirium -CTM -Med Psych consult active, appreciate recs - Have seen patient and will continue to follow Non active: Ketoacidosis - resolved - BMP daily Leukocytosis: Resolved (12.41 -> 7.06) - trend fever curve and continue to monitor for resolution - low threshold to re-draw blood cultures if acutely symptomatic or a fever develops - CBC daily Deep Vein Thrombosis of the left lower extremity - Diagnosed in August 2020 - WORKERS' COMPENSATION MAGISTRATE Eliquis 5mg BID Hypothyroidism - continue WORKERS' COMPENSATION MAGISTRATE levothyroxine VTE Prophylaxis - WORKERS' COMPENSATION MAGISTRATE Eliquis 5mg BID Discharge Plan PT recommending NICHOLE Consults Infectious Disease, Ortho, Med Psych, and Nutrition Desiree Marcano DO Internal Medicine, PGY-1 Pager 1075/Cortex 01/10/21 17:01 Cosigned by Ti Maloney MD at 01/10/2021 19:22 EST Associated attestation - Ti Maloney MD - 01/10/2021 1922 EST I interviewed and examined the patient. I have personally reviewed interval events, laboratory data, and imaging. I discussed the case with the inpatient resident team. I agree with findings and planof care as documented by the resident (or have edited in Blue). Ti Maloney MD 01/10/21 * Mulugeta Morales RN - 01/09/2021 1841 EST [id number] Data: Pt is POD 9 R BKA stay c/b L hip OA and labrum tear w/ severe pain. Pt A&O, cooperative and pleasant. Forgetful at baseline. VSS. Persistent L hip pain, on standing pain reg. Debra wrap to R BKA site CDI. Debbie/coccyx area red and peeling. Scanlon draining CYU. Action: T&R q 2 hr, specialty mattress in place. Protective barrier to coccyx. Meds as ordered. Response: Safety maintained. Plan of care progressing. MULUGETA MORALES RN 01/09/2021 18:41 * Repp, Tj Herron MD - 01/09/2021 0727 EST Medicine Progress Note Service Date: 01/09/2021 Admit Date: 12/22/2020 19:00 Reason for Admission: 60 y.o. male admitted with a chief complaint of left leg pain and now with a principal diagnosis of management of severe diabetic right foot wound. 24 Hour Events: - Scanlon placed overnight Subjective/Objective Subjective Mr. Scott reports he is doing okay this morning. Left hip pain is still at baseline and non-improved. Continues to deny issues with RLE. Reports increasing difficulty with passing bowel movements though denies abdominal pain. Scanlon now in place draining clear yellow urine. He denies any issues withthe scanlon at this time. He endorses good PO intake and denies nausea, vomiting, chest pain, SOB, fevers, or chills. He otherwise has no complaints. Review of Systems A ten point review of systems was performed and was negative except for pertinent positives noted in the HPI Objective Vital Signs Temp: [36.8 ??C (98.3 ??F)-37.1 ??C (98.8 ??F)] , Heart Rate: [101 BPM] , Resp: [18] , BP: (109-134)/(64-83) , SpO2: [91 %-96 %] Physical Exam General appearance: Cooperative, alert Face: facial asymmetry with right facial droop (chronic) Lungs: clear to auscultation bilaterally, non labored breathing Heart: regular rate and rhythm, S1, S2 normal Abdomen: soft, non-tender; bowel sounds normal; no masses, no organomegaly Neurologic: AAO to person and place Extremities: extremities warm, no cyanosis or edema. L hip tender to palpation. R stump elevated onpillow and wrapped. Able to lift R leg easily, L leg mobility very limited by pain : Scanlon in place Pulses: LLE DP's palpable, RLE footless Skin: Skin color, temperature, turgor normal. Psych: quite tearful during the interview when discussing his pain Is PICC or central line present? Yes, it is still present. The line is still required. Labs Recent Labs 01/07/2155501/09/21 0547 WBC 8.72 7.29 RBC 3.14* 3.29* HGB 9.5* 9.7* HCT 28.9* 29.7* MCV 92 90 MCH 30.3 29.5 MCHC 32.9 32.7* PLT 396* 375 Recent Labs 01/07/2156 01/09/21 0547 NA 136 134* K 4.7 4.5 CL 97 98 CO2 29 28 BUN 20 19 CREATININE 0.61* 0.54* Glucose: 143/106/126/169 Hemoglobin A1C: 13.9 Lab Results Component Value Date CRP 219.2 (H) 12/27/2020 CRPP 11.7 (H) 03/09/201612/23 Bone Biopsy: Preliminary result: moderate Strep agalactiae (Group B) 12/23 Blood Cultures: Preliminary result: Anaerobic bottle positive for MSSA at 18 hours. Aerobic positive for MSSA at 23 hours 12/24 Blood Cultures: NGTD Imaging No new imaging Assessment/Plan Assessment Jeff Scott is a 60 y.o. 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 Sympoms improved with dilaudid and antibiosis. Seen by ortho and underwent right BTK amputation on 12/29 for infection control. Surgical course was uncomplicated. However, post- operative mobility has been limited by severe left hip pain with evidence of OA and degenerative labrum tears by MRI. Orthopedics recommended against any hip s urgery at this time due to risk of complications given A1C levels and bacteremia. PT has seen and begun to work with him and recommend NICHOLE at discharge at this time. Will maintain current pain regimen with goal of continue to encourage mobility. We will continue to titrate his insulin for better glu cose control. Plan Urinary Retention (asymptomatic) Constipation Patient was not voiding, bladder scan, 1 time straight cath and continued retention Likely combination of opioid pain medication as well as opioid-induced constipation - Tamsulosin 0.4 mg daily - Scanlon catheter now in place - will likely remain in place until opiate medication can be decreased and constipation improves and Tamsulosin begins to take affect (~1 week) - Increase Miralax to 17g BID, Senna 2 tabs BID LLE/Hip Pain At some point patient will need an arthroplasty but ideally he could recover from his BKA first. Per ortho no acute intervention such as surgery due to hx of bactermia and poorly controlled sugars. His pain is currently limiting his mobility and he is essentially bed bound and his ability to work with PT - Also reached out to IR who said they do not do joint injections on inpatients - Contact has been made with [facility]ology who are amenable to inpatient hip injection this week once order has been submitted - improving control on current regimen - Tylenol 1000 q6 PRN, WORKERS' COMPENSATION MAGISTRATE tramadol - Robaxin 750mg q4 - lidocaine patch daily - continue MS Contin TID 15, 15, 30 with MSIR 15 q4 PRN for breakthrough pain - Gabapentin to 300mg tid - no acute plans from ortho regarding osteoarthritis management - following with with ortho regarding arthroplasty plans per note on Monday 01/01 - Limit weightbearing of LLE - Physical Therapy as able - Seen once now, recommend NICHOLE at discharge Sepsis due to MSSA Bacteremia Osteomyelitis of R foot 12/23 blood cultures: preliminary read: MSSA in anaerobic cultures and aerobic cultures TTE on 12/25 -> no evidence of IE but poor imaging -Previous wound cultures obtained preliminary read: moderate Strep agalactiae (Group B) - ID consulted for MSSA bacteremia, appreciate recs - Continue Cefazolin for 4 weeks from 12/24-01/20 (last dose on 01/20/21) - PICC placed 12/31 - Ortho consulted, appreciate recs - s/p BTK amputation on 12/29 - Non-weight bearing RLE - pillow under distal end of stump NOT knee. Goal: keep knee completely straight - Dressing to remain in place for 2-3 weeks post-op - Gabapentin to 300mg TID for neuropathic pain in the stump Type 2 Diabetes, on home insulin, poorly controlled, with hyperglycemia and persistently elevated AM fasting levels. Improving since latest basal adjustment. Continue to monitor for improvement. WORKERS' COMPENSATION MAGISTRATE regimen of 45 units glargine daily with 10 units lispro with meals Hemaglobin A1C 13.9 - Continue 60 U glargine nightly - 18 units aspart with meals - Target BG 140-180 - Nutrition consulted for dietary recs and patient education, appreciate recs - Vit C 500mg daily - Vit D3 2000 units daily - Hold on Endo consult at this time - BMP daily Pressure Wound - Buttocks Discovered overnight on 01/02. Wound care evaluation ordered. Have seen and left recommendations. Will not follow patient - Zinc paste or Zinc- Dimethicone spray to buttocks BID and PRN with pericare - strict q2hr turns - avoid placing pillows directly behind buttocks when turning - float heel off mattress - Disposable dri-deshawn chux, avoid cloth - waffle cushion when up in chair. Limit OOB time to 1-2hrs - No briefs - if no improvement in skin condition, consider First Step Cirrus mattress Psychological Well-Being Patient with some lability and some nursing concerns for waxing and waning awareness and possible delirium -CTM -Med Psych consult active, appreciate recs - Have seen patient and will continue to follow Non active: Ketoacidosis - resolved - BMP daily Leukocytosis: Resolved (12.41 -> 7.06) - trend fever curve and continue to monitor for resolution - low threshold to re-draw blood cultures if acutely symptomatic or a fever develops - CBC daily Deep Vein Thrombosis of the left lower extremity - Diagnosed in August 2020 - WORKERS' COMPENSATION MAGISTRATE Eliquis 5mg BID Hypothyroidism - continue WORKERS' COMPENSATION MAGISTRATE levothyroxine VTE Prophylaxis - WORKERS' COMPENSATION MAGISTRATE Eliquis 5mg BID Discharge Plan PT recommending NICHOLE Consults Infectious Disease, Ortho, Med Psych, and Nutrition Uri Miller, MS3 I was present with the medical student for the history, exam, and medical decision making documented. I have edited the medical student note as appropriate. Desiree Marcano DO 01/09/2021 15:45 ATTENDING ATTESTATION: Date of service: 01/09/2021 The resident physician was present with the medical student for the history, exam, and medical decision making documented above. I have personally performed my own physical exam and medical decision making. I have personally reviewed laboratory studies, medications, and interval records. I have verified and agree with (or, as indicated, have edited in blue) the combined medical student's/resident physician's documentation. Additionally: Dr. Juan Maloney will assume the care of the patient tomorrow. Tj Hitchcock MD Internal Medicine Hospitalist Service 01/09/2021 17:34 * Mulugeta Morales RN - 01/08/2021 1358 EDT [id number] Data: Pt is POD 8 R BKA stay c/b L hip OA and labrum tear w/ severe pain. Pt A&O, cooperative and pleasant. Forgetful at baseline. VSS. Persistent L hip pain, on standing pain reg. Debra wrap to R BKA site CDI. Debbie/coccyx area red and peeling. Action: T&R q 2 hr, specialty mattress in place. Protective barrier to coccyx. Meds as ordered.Straight cath'ed x1 at 1100 for 825ml. DTV [id number], order to place scanlon if still retaining. Response: Safety maintained. Plan of care progressing. MULUGETA MORALES RN 01/08/2021 11:12 * Tj Hitchcock MD - 01/08/2021 0706 EDT Medicine Progress Note Service Date: 01/08/2021 Admit Date: 12/22/2020 19:00 Reason for Admission: 60 y.o. male admitted with a chief complaint of left leg pain and now with a principal diagnosis of management of severe diabetic right foot wound. 24 Hour Events: Not voiding, bladder scan 1.3L, straight cathed, no symptoms Subjective/Objective Subjective He reports continued hip pain but was able to try to mobilize yesterday with somewhat good pain control. He also endorses that he has noticed difficulty initiating a stream in the last day or so but denied any abdominal pain or dyuria. Review of Systems A ten point review of systems was performed and was negative except for pertinent positives noted in the HPI Objective Vital Signs Temp: [36.9 ??C (98.4 ??F)-37.1 ??C (98.8 ??F)] , Heart Rate: [93 BPM-96 BPM] , Resp: [16-20] , BP:(122-142)/(69-77) , SpO2: [90 %-97 %] Physical Exam General appearance: Cooperative, alert Face: facial asymmetry with right facial droop (chronic) Lungs: clear to auscultation bilaterally, non labored breathing Heart: regular rate and rhythm, S1, S2 normal Abdomen: soft, non-tender; bowel sounds normal; no masses, no organomegaly Neurologic: AAO to person and place Extremities: extremities warm, no cyanosis or edema. L hip tender to palpation. R stump elevated onpillow and wrapped. Able to lift R leg easily, L leg mobility very limited by pain Pulses: LLE DP's palpable, RLE footless Skin: Skin color, temperature, turgor normal. Psych: quite tearful during the interview when discussing his pain Is PICC or central line present? Yes, it is still present. The line is still required. Labs Recent Labs 01/06/21 0601/07/21 0556 WBC 8.60 8.72 RBC 3.18* 3.14* HGB 9.5* 9.5* HCT 29.4* 28.9* MCV 93 92 MCH 29.9 30.3 MCHC 32.3* 32.9 PLT 394* 396* Recent Labs 01/06/21 0629 01/07/21 0556 NA 135* 136 K 4.8 4.7 CL 96 97 CO2 30 29 BUN 20 20 CREATININE 0.58* 0.61* Glucose: 142/111/204/178 Hemoglobin A1C: 13.9 Lab Results Component Value Date CRP 219.2 (H) 12/27/2020 CRPP 11.7 (H) 03/09/201612/23 Bone Biopsy: Preliminary result: moderate Strep agalactiae (Group B) 12/23 Blood Cultures: Preliminary result: Anaerobic bottle positive for MSSA at 18 hours. Aerobic positive for MSSA at 23 hours 12/24 Blood Cultures: NGTD Imaging No new imaging Assessment/Plan Assessment Jeff Scott is a 60 y.o. 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 Sympoms improved with dilaudid and antibiosis. Seen by ortho and underwent right BTK amputation on 12/29 for infection control. Surgical course was uncomplicated. However, post- operative mobility has been limited by severe left hip pain with evidence of OA and degenerative labrum tears by MRI. Orthopedics discussed potential for total hip arthroplasty and recommended against surgery at this time due to risk of complications given A1C levels and bacteremia. PT has seen and begun to work with him and recommend [facility] at discharge at this time. Pain plan adjusted with goal of increasing patient mobility and also preparing for discharge to [facility]. We will continue to titrate his insulin for better glucose control. Will hold off on an Endo consult for now as his sugars are stabilizing with insulin management. Plan Urinary Retention (asymptomatic) Patient was not voiding, bladder scan, 1 time straight cath Likely related to his opioid pain medication -Start Tamsuloin 0.4 mg daily - PVR q 8 hrs, if retaining >[address] a scanlon catheter LLE/Hip Pain At some point patient will need an arthroplasty but ideally he could recover from his BKA first. However, this is significantly limiting his ability to recover from right lower extremity amputation and at this point he is essentially bed bound and could not work with PT. - Per ortho: No acute intervention planned at this time due to risks of surgery. Also no plan to doa joint injection while in patient. They will follow-up as outpatient - Also reached out to IR who said they do not do joint injections on inpatients, will contact [facility] [place]ology to see if they would recommend an injection into the hip/bursa - improving control on current regimen - Tylenol 1000 q6 PRN, WORKERS' COMPENSATION MAGISTRATE tramadol - Robaxin 750mg q4 - lidocaine patch daily - continue MS Contin TID 15, 15, 30 with MSIR 15 q4 PRN for breakthrough pain - Gabapentin to 300mg tid - no acute plans from ortho regarding osteoarthritis management - following with with ortho regarding arthroplasty plans per note on Monday 01/01 - Limit weightbearing of LLE - Physical Therapy as able - Seen once now, recommend [facility] at discharge Sepsis due to MSSA Bacteremia Osteomyelitis of R foot 12/23 blood cultures: preliminary read: MSSA in anaerobic cultures and aerobic cultures TTE on 12/25 -> no evidence of IE but poor imaging -Previous wound cultures obtained preliminary read: moderate Strep agalactiae (Group B) - ID consulted for MSSA bacteremia, appreciate recs - Continue Cefazolin for 4 weeks from 12/24-01/20 (last dose on 01/20/21) - PICC placed 12/31 - Ortho consulted, appreciate recs - s/p BTK amputation on 12/29 - Non-weight bearing RLE - pillow under distal end of stump NOT knee. Goal: keep knee completely straight - Dressing to remain in place for 2-3 weeks post-op - Gabapentin to 300mg TID for neuropathic pain in the stump Type 2 Diabetes, on home insulin, poorly controlled, with hyperglycemia and persistently elevated AM fasting levels. Improving since latest basal adjustment. Continue to monitor for improvement. WORKERS' COMPENSATION MAGISTRATE regimen of 45 units glargine daily with 10 units lispro with meals Hemaglobin A1C 13.9 - Continue 60 U glargine nightly - 18 units aspart with meals - Target BG 140-180 - Nutrition consulted for dietary recs and patient education, appreciate recs - Vit C 500mg daily - Vit D3 2000 units daily - Hold on Endo consult at this time - BMP daily Pressure Wound - Buttocks Discovered overnight on 01/02. Wound care evaluation ordered. Have seen and left recommendations. Will not follow patient - Zinc paste or Zinc- Dimethicone spray to buttocks BID and PRN with pericare - strict q2hr turns - avoid placing pillows directly behind buttocks when turning - float heel off mattress - Disposable dri-deshawn chux, avoid cloth - waffle cushion when up in chair. Limit OOB time to 1-2hrs - No briefs - if no improvement in skin condition, consider First Step Cirrus mattress Psychological Well-Being Patient with some lability and some nursing concerns for waxing and waning awareness and possible delirium -CTM -Med Psych consult active, appreciate recs - Have seen patient and will continue to follow Non active: Ketoacidosis - resolved - BMP daily Leukocytosis: Resolved (12.41 -> 7.06) - trend fever curve and continue to monitor for resolution - low threshold to re-draw blood cultures if acutely symptomatic or a fever develops - CBC daily Deep Vein Thrombosis of the left lower extremity - Diagnosed in August 2020 - WORKERS' COMPENSATION MAGISTRATE Eliquis 5mg BID Hypothyroidism - continue WORKERS' COMPENSATION MAGISTRATE levothyroxine VTE Prophylaxis - WORKERS' COMPENSATION MAGISTRATE Eliquis 5mg BID Discharge Plan PT recommending [facility] Consults Infectious Disease, Ortho, Med Psych, and Nutrition Desiree Marcano DO Internal Medicine, PGY-1 Pager [phone]/[phone] 01/08/21 7:33 ATTENDING ATTESTATION: Date of service: 01/08/2021 I interviewed and examined the patient; reviewed records and laboratory studies; and discussed the case with Dr. Desiree Marcano (medicine housestaff team). I agree with and addended (in blue) the findings and plan of care as documented in the note above. Tj Hitchcock MD Internal Medicine Hospitalist Service 01/08/2021 14:48 * Mars Ledezma - 01/07/2021 1433 EDT Case Management Note: Recommended Discharge Destination: [facility]. Pt has been listed in [facility]. He has not received any bed offers to date ([facility] bed availability is tight). This director underwriter sales left messages with all four admission coordinators at the following local facilities: [facility], and [place]. They do not have bed availability at this time but will continue to follow. This director underwriter sales met with pt at bedside for check in: - Discussed difficulty with finding local [facility] placement and expanding the search to neighboring counties. Pt in agreement. He agreed to expand the search to [facility], and [facility] to start. This director underwriter sales submitted new clinical notes to [facility] and the search was expanded to include all SARs in the listed counties above. - Pt states he had his meeting with the [employer] excavation laborer earlier but he was unclear re: the outcome. The excavation laborer stated that they had concluded their business and that a second meeting was not necessary. Pt reports he will call the excavation laborer to clarify. - It is still pt's intention to live with his ex-spouse Nguyen in [place] after discharge from [facility].He reports he will continue to live there until he finds another apartment. Pt reports Nguyen is in support and on board with this plan. He reports he feels safe at home with Nguyen and that they are civil. Will continue to follow for discharge planning. Mars Ledezma RN, LANDSCAPING SPECIALIST, [facility] Pager # [phone] * Repp, Tj Herron MD - 01/07/2021 0727 EDT Medicine Progress Note Service Date: 01/07/2021 Admit Date: 12/22/2020 19:00 Reason for Admission: 60 y.o. male admitted with a chief complaint of left leg pain and now with a principal diagnosis of management of severe diabetic right foot wound. 24 Hour Events: - ID adjusted recommendations to continue cefazolin through 01/20 - Dietitian evaluation - recommend Endo consult for home DM medication management Subjective/Objective Subjective Mr. Scott reports he is doing okay this morning. Reports no issues with his RLE. Endorses that he slept well throughout the night without awakening but continues to endorse left hip pain at baseline.Encouraged active participation with PT and movement as able with administration of MSIR. He otherwise denies nausea, vomiting, chest pain, SOB, abdominal pain, calve pain. He is making good urine and passing formed stool. He has no other complaints at this time. Review of Systems A ten point review of systems was performed and was negative except for pertinent positives noted in the HPI Objective Vital Signs Temp: [36.5 ??C (97.7 ??F)-37.1 ??C (98.8 ??F)] , Heart Rate: [96 BPM] , Resp: [16-18] , BP: (121-142)/(74-77) , SpO2: [92 %-95 %] Physical Exam General appearance: Cooperative, alert Face: facial asymmetry with right facial droop (chronic) Lungs: clear to auscultation bilaterally, non labored breathing Heart: regular rate and rhythm, S1, S2 normal Abdomen: soft, non-tender; bowel sounds normal; no masses, no organomegaly Neurologic: AAO to person and place Extremities: extremities warm, no cyanosis or edema. L hip tender to palpation. R stump elevated onpillow and wrapped. Able to lift R leg easily, L leg mobility very limited by pain Pulses: LLE DP's palpable, RLE footless Skin: Skin color, temperature, turgor normal. Psych: quite tearful during the interview when discussing his pain Is PICC or central line present? Yes, it is still present. The line is still required. Labs Recent Labs 01/05/2154401/06/2162801/07/21 0556 WBC 7.06 8.60 8.72 RBC 2.99* 3.18* 3.14* HGB 9.3* 9.5* 9.5* HCT 28.4* 29.4* 28.9* MCV 95 93 92 MCH 31.1 29.9 30.3 MCHC 32.7* 32.3* 32.9 PLT 388* 394* 396* Recent Labs 01/05/2145 01/06/2129 01/07/21 0556 NA 138 135* 136 K 4.7 4.8 4.7 CL 98 96 97 CO2 32 30 29 BUN 18 20 20 CREATININE 0.57* 0.58* 0.61* Glucose: 142/111/204/178 Hemoglobin A1C: 13.9 Lab Results Component Value Date CRP 219.2 (H) 12/27/2020 CRPP 11.7 (H) 03/09/201612/23 Bone Biopsy: Preliminary result: moderate Strep agalactiae (Group B) 12/23 Blood Cultures: Preliminary result: Anaerobic bottle positive for MSSA at 18 hours. Aerobic positive for MSSA at 23 hours 12/24 Blood Cultures: NGTD Imaging No new imaging Assessment/Plan Assessment Jeff Scott is a 60 y.o. 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 Sympoms improved with dilaudid and antibiosis. Seen by ortho and underwent right BTK amputation on 12/29 for infection control. Surgical course was uncomplicated. However, post- operative mobility has been limited by severe left hip pain with evidence of OA and degenerative labrum tears by MRI. Orthopedics discussed potential for total hip arthroplasty and recommended against surgery at this time due to risk of complications given A1C levels and bacteremia. Will follow up to see if a bursal injection would be possible for acute pain control to assist with rehabilitation progress. PT has seen and begun to work with him and recommend [facility] at discharge at this time. Pain plan adjusted with goal of increasing patient mobility and al so preparing for discharge to [facility]. We will continue to titrate his insulin for better glucose control. Will hold off on an Endo consult for now as his sugars are stabilizing with insulin management. Plan Sepsis due to MSSA Bacteremia Osteomyelitis of R foot 12/23 blood cultures: preliminary read: MSSA in anaerobic cultures and aerobic cultures TTE on 12/25 -> no evidence of IE but poor imaging -Previous wound cultures obtained preliminary read: moderate Strep agalactiae (Group B) - ID consulted for MSSA bacteremia, appreciate recs - Most recent ID recommendation are to continue cefazolin 2g q8h for 4 weeks from 12/24 currently day . Previous recommendations would end antibiotics 01/12. Based on current ID recommendations,continue cefazolin for 4 week course 12/24 - 01/20 (last dose on 01/20/21) - PICC placed 12/31 - Ortho consulted, appreciate recs - s/p BTK amputation on 12/29 - Non-weight bearing RLE - pillow under distal end of stump NOT knee. Goal: keep knee completely straight - Dressing to remain in place for 2-3 weeks post-op - Gabapentin to 300mg TID for neuropathic pain in the stump LLE/Hip Pain At some point patient will need an arthroplasty but ideally he could recover from his BKA first. However, this is significantly limiting his ability to recover from right lower extremity amputation and at this point he is essentially bed bound and could not work with PT. - Per ortho: No acute intervention planned at this time due to risks of surgery. Also no plan to doa joint injection while in patient. They will follow-up as outpatient - Also reached out to IR who said they do not do joint injections on inpatients, will contact [facility] [place]ology to see if they would recommend an injection into the hip/bursa - improving control on current regimen - Tylenol 1000 q6 PRN, WORKERS' COMPENSATION MAGISTRATE tramadol - Robaxin 750mg q4 - lidocaine patch daily - d/c scheduled dilaudid (done on 01/06) - begin MS Contin TID 15, 15, 30 with MSIR 15 q4 PRN for breakthrough pain (started on 01/06 with reasonable effect; would avoid further dose escalation) - Gabapentin to 300mg tid - no acute plans from ortho regarding osteoarthritis management - following with with ortho regarding arthroplasty plans per note on Monday 01/01 - Limit weightbearing of LLE - Physical Therapy as able - Seen once now, recommend [facility] at discharge Type 2 Diabetes, on home insulin, poorly controlled, with hyperglycemia and persistently elevated AM fasting levels. Improving since latest basal adjustment. Continue to monitor for improvement. WORKERS' COMPENSATION MAGISTRATE regimen of 45 units glargine daily with 10 units lispro with meals Hemaglobin A1C 13.9 Blood glucose has been elevated throughout the day, and past 2 fasting sugars have been elevated - increase to 60 U glargine nightly - 18 units aspart with meals - Target BG 140-180 - Nutrition consulted for dietary recs and patient education, appreciate recs - Vit C 500mg daily - Vit D3 2000 units daily - Hold on Endo consult at this time - BMP daily Pressure Wound - Buttocks Discovered overnight on 01/02. Wound care evaluation ordered. Have seen and left recommendations. Will not follow patient - Zinc paste or Zinc- Dimethicone spray to buttocks BID and PRN with pericare - strict q2hr turns - avoid placing pillows directly behind buttocks when turning - float heel off mattress - Disposable dri-deshawn chux, avoid cloth - waffle cushion when up in chair. Limit OOB time to 1-2hrs - No briefs - if no improvement in skin condition, consider First Step Cirrus mattress Psychological Well-Being Patient with some lability and some nursing concerns for waxing and waning awareness and possible delirium -CTM -Med Psych consult active, appreciate recs - Have seen patient and will continue to follow Non active: Ketoacidosis - resolved - BMP daily Leukocytosis: acute increase in WBC 9.46 -> 12.41 on 01/04. Remains afebrile and asymptomatic: Resolved (12.41 -> 7.06) - trend fever curve and continue to monitor for resolution - low threshold to re-draw blood cultures if acutely symptomatic or a fever develops - CBC daily Deep Vein Thrombosis of the left lower extremity - Diagnosed in August 2020 - WORKERS' COMPENSATION MAGISTRATE Eliquis 5mg BID Hypothyroidism - continue WORKERS' COMPENSATION MAGISTRATE levothyroxine VTE Prophylaxis - WORKERS' COMPENSATION MAGISTRATE Eliquis 5mg BID Discharge Plan PT recommending [facility] Consults Infectious Disease, Ortho, Med Psych, and Nutrition Uri Miller, MS3 I was present with the medical student for the history, exam, and medical decision making documented. I have edited the medical student note as appropriate. Sea Gomez MD 01/07/2021 15:39 ATTENDING ATTESTATION: Date of service: 01/07/2021 The resident physician was present with the medical student for the history, exam, and medical decision making documented above. I have personally performed my own physical exam and medical decision making. I have personally reviewed laboratory studies, medications, and interval records. I have verified and agree with (or, as indicated, have edited in blue) the combined medical student's/resident physician's documentation. Tj Hitchcock MD Internal Medicine Hospitalist Service 01/07/2021 17:38 * Elizabeth Costello, RD - 01/06/2021 1606 EDT Brief Nutrition Note Pt seen for diabetes education. He has memory problems, so while he is honest and forthcoming in his answers, he may have inadvertently left out relevant information. Sometimes struggles to recall information, for example during interview today he forgot the word 'diabetes' and had to ask me what are the names of my conditions? The food here is fantastic. He likes being on automatic meal trays, does sometimes call Room Service to confirm that he has a meal on the way. Hasn't been out working in his barn in months d/t being laid up, reports he is snacking a little more since he's just laying around the house. Says he stopped drinking chocolate milk, can't remember the last time he drank it, and stopped eating candy in the barn. He is very happy that his glucose here in the hospital was as low as 111 today. Home diet recall: Breakfast: egg/ham scramble with 1-2 slices of toast and a bowl of cereal (cheerios, or cheerios mixed with a raisin granola) Lunch: ham/cheese sandwich with tortilla chips and dip, 10-oz glass of milk Dinner: canned soup, sometimes with crackers, sometimes with veggie salad (no croutons). Or leftovers ( cooks spaghetti with meatballs, meatloaf, eng's pie, etc). Glass of milk. Snacks: handfulls of pretzels, Smartpop popcorn, and tortilla chips. Buys large bags but estimates it takes two weeks to finish off each bag (although does eat from each bag daily so would be doing 3full bags over the course of two weeks) Beverages: white milk, water, diet soda, seltzer, flavored yap. Home diabetes medication regimen per pt (he tells me that he does not remember this regimen very well and might be wrong about some of it) Thinks he takes 2-3 oral DM meds: -metformin in morning -glimepiride BID Insulin: -Lantus at night -short-acting insulin TID He uses a pill box to keep track of his meds, fills it weekly, notes he's pretty consistent with taking his meds although occasionally will notice when he goes to fill the box that he's missed a day the previous week. Prescribed DM meds on file per [facility]: Metformin 500 mg BID sitagliptin 100 mg daily glargine 45 units at bedtime Lispro 10 units TID with meals Home glucose checks: Checks in morning before breakfast, he cannot remember what his numbers have been Checks in evening before dinner, he also can't remember these numbers but guesses I think I remember a 160? Lab Results Component Value Date/Time HGBA1C 13.9 (H) 12/23/2020 07:02 HGBA1C 14.8 (H) 05/20/2020 12:24 ESTAVGGLU 352 12/23/2020 07:02 ESTAVGGLU 378 05/20/2020 12:24 GLUCOSEPOC 111 (H) 01/06/2021 12:30 GLUCOSEPOC 142 (H) 01/06/2021 08:27 GLUCOSEPOC 138 (H) 01/05/2021 20:25 GLUCOSEPOC 200 (H) 01/05/2021 18:00 GLUCOSEPOC 172 (H) 01/05/2021 12:35 GLUCOSEPOC 223 (H) 01/05/2021 07:55 GLUCOSEPOC 223 (H) 01/04/2021 21:11 GLUCOSEPOC 168 (H) 01/04/2021 18:25 GLUCOSEPOC 210 (H) 01/04/2021 11:05 GLUCOSEPOC 297 (H) 01/04/2021 07:59 GLUCOSEFINGE 348 (H) 07/30/2018 12:54 GLUCOSEFINGE 105 (H) 03/23/2016 17:10 GLUCOSEFINGE 128 (H) 03/23/2016 12:40 Assessment: Patient with poorly controlled diabetes. His memory problems make diabetes education and adhering to home diet regimen very challenging. He saw a dietitian with the [facility] for several years ([phone]), recommend resuming these visits. His diet recall today doesn't sound that bad, but he is known to me from prior admission and in thepast has forgotten to mention food/beverage items unless specifically asked about them. I'm also not sure his portion sizes of high-carb snack foods are appropriate. His breakfast of eggs, toast, andcereal is too high in carb, I asked him to just have the eggs and toast, and not add the cereal too. Recommend Endo consult for home DM medication management. He does miss about 1 day of meds per weekat home, but otherwise sounds like he tries to follow his med regimen. Plan: -Consult Endo for A1C of 13.9 & pt reporting fair adherence to home med regimen -Include referral for outpatient nutrition counseling at discharge -Diet education provided as described in Assessment Elizabeth Costello RD (Call PAS or use [employer] to page RD covering this unit) * Jason Nino MD - 01/06/2021 1324 EDT Infectious Disease Consultation Follow Up Note Admit Date: 12/22/2020 Hospital Day: LOS: 14 days Date of Service: 01/06/2021 Followup For: MSSA bacteremia; right LE infection due to MSSA/Grp B Strep/mixed organisms s/p BKA; left hip pain. Subjective: feels pretty good; main complaint is ongoing left hip pain that he doesn't believe has improved since treatment; tolerating the antibiotic well; no fevers; no rash; no diarrhea. Anti-infectives & Other Pertinent Medications: cefazolin 2 gram IV q 8 hour now day 14 since negative blood cultures Vital Signs: BP 124/75 (BP Cuff Location: Left arm, BP Patient Position: Semi fowlers) Pulse 82 Temp 36.7 ??C (98 ??F) (Oral) Resp 18 Ht 185.4 cm (73) Wt (!) 115.7 kg (255 lb 1.2 oz) SpO2 97% BMI 33.65 kg/m?? Exam: Alert, oriented to person and place Short term memory deficit Picc line right arm without erythema or arm swelling Skin with no rash or jaundice H/N no subconjunctival petechiae, no scleral icterus Lungs CTA COR RRR, normal s1 and s2, I don't hear a murmur ABD soft, non-tender EXT no embolic phenomena, right LE BKA stump with bulky dressing that I didn't remove--no surrounding erythema; left LE with hip visually normal--pain on both active and passive flexion of the left hip, no warmth or erythema Data Review: Laboratory data reviewed. Pertinent positives include: Labs: WBC 8.6K, Hct 29.4%, Plt 394K, Cr 0.58 Microbiology: 12/23 Blood culture x2 with MSSA 12/24 blood culture x2 negative 12/23 bone from right foot with moderate Grp B Strep, few MSSA, few mixed organisms Other: MRI hip w and wo contrast on 12/29: Feathery pattern of muscle edema with areas of mild enhancement involving the adductor musculature,visualized proximal portion of the vastus musculature and the gluteus medius and minimus muscles about the left hip. Assessment: 1) Right foot infection with osteomyelitis and resultant MSSA bacteremia. Now s/p BKA so soft tissue and bone infection removed. 2) MSSA bacteremia (see above) 3) Left hip pain--can't fully exclude a septic arthritis related to his bacteremia, but the MRI excludes any need for operative intervention and the treatment for his bacteremia will be of adequate duration to treat a septic arthritis. Recommendations: 1) Continue IV cefazolin 2 gram q 8 hour for 4 weeks for his MSSA bacteremia--would count from negative blood cultures on 12/24 (now day ). Jason Nino MD 01/06/2021 13:24 * Repp, Tj Herron MD - 01/06/2021 0733 EDT Medicine Progress Note Service Date: 01/06/2021 Admit Date: 12/22/2020 19:00 Reason for Admission: 60 y.o. male admitted with a chief complaint of left leg pain and now with a principal diagnosis of management of severe diabetic right foot wound. 24 Hour Events: - Listed for NICHOLE yesterday Subjective/Objective Subjective Mr. Scott reports he is doing okay this morning. Awoke once overnight due to pain but was able to go back to sleep. Pain present but tolerable this morning. Does not endorse significant RLE symptoms.Discussed ortho recommendations to delay surgery at this time and he was understanding of their reasoning. Endorsed that he would like his brother, Terry, to be made aware of everything related to his care as he is worried that he is missing important information in the setting of his known STML. Otherwise denies nausea, vomiting, SOB, chest pain. Endorses good PO intake and passing formed stool.He otherwise has no complaints at this time. Review of Systems A ten point review of systems was performed and was negative except for pertinent positives noted in the HPI Objective Vital Signs Temp: [36.3 ??C (97.3 ??F)-36.7 ??C (98.1 ??F)] , Heart Rate: [96 BPM-106 BPM] , Resp: [18-20] , BP: (110-124)/(70-75) , SpO2: [94 %-97 %] Physical Exam General appearance: Cooperative, alert Face: facial asymmetry with right facial droop (chronic) Lungs: clear to auscultation bilaterally, non labored breathing Heart: regular rate and rhythm, S1, S2 normal Abdomen: soft, non-tender; bowel sounds normal; no masses, no organomegaly Neurologic: AAO to person and place Extremities: extremities warm, no cyanosis or edema. L hip tender to palpation. R stump elevated onpillow and wrapped. Able to lift R leg easily, L leg mobility very limited by pain Pulses: LLE DP's palpable, RLE footless Skin: Skin color, temperature, turgor normal. Psych: quite tearful during the interview when discussing his pain Is PICC or central line present? Yes, it is still present. The line is still required. Labs Recent Labs 01/04/2163401/05/2154401/06/21 06 WBC 12.41* 7.06 8.60 RBC 3.10* 2.99* 3.18* HGB 9.5* 9.3* 9.5* HCT 28.3* 28.4* 29.4* MCV 91 95 93 MCH 30.6 31.1 29.9 MCHC 33.6 32.7* 32.3* PLT 407* 388* 394* Recent Labs 01/04/2163401/05/2145 01/06/21 06 NA 134* 138 135* K 4.8 4.7 4.8 CL 97 98 96 CO2 27 32 30 BUN 19 18 20 CREATININE 0.55* 0.57* 0.58* Glucose: 217/230/209/162/163/230 Hemoglobin A1C: 13.9 Lab Results Component Value Date CRP 219.2 (H) 12/27/2020 CRPP 11.7 (H) 03/09/201612/23 Bone Biopsy: Preliminary result: moderate Strep agalactiae (Group B) 12/23 Blood Cultures: Preliminary result: Anaerobic bottle positive for MSSA at 18 hours. Aerobic positive for MSSA at 23 hours 12/24 Blood Cultures: NGTD Imaging No new imaging Assessment/Plan Assessment Jeff Scott is a 60 y.o. 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 Sympoms improved with dilaudid and antibiosis. Seen by ortho and underwent right BTK amputation on 12/29 for infection control. Surgical course was uncomplicated. However, post- operative mobility has been limited by severe left hip pain with evidence of OA and degenerative labrum tears by MRI. Orthopedics discussed potential for total hip arthroplasty and recommended against surgery at this time due to risk of complications given A1C levels and bacteremia. Will follow up to see if a bursal injection would be possible for acute pain control to assist with rehabilitation progress. PT has seen and begun to work with him and recommend NICHOLE at discharge at this time. Pain plan adjusted with goal of increasing patient mobility and al so preparing for discharge to [facility]. We will continue to titrate his insulin for better glucose control. Plan Sepsis due to MSSA Bacteremia Osteomyelitis of R foot 12/23 blood cultures: preliminary read: MSSA in anaerobic cultures and aerobic cultures TTE on 12/25 -> no evidence of IE but poor imaging -Previous wound cultures obtained preliminary read: moderate Strep agalactiae (Group B) - ID consulted for MSSA bacteremia, appreciate recs - Most recent ID recommendation are to continue cefazolin 2g q8h for 4 weeks from 12/24 currently day . Previous recommendations would end antibiotics 01/12. Based on current ID recommendations,continue cefazolin for 4 week course 12/24 - 01/20 (last dose on 01/20/21) - PICC placed 12/31 - Ortho consulted, appreciate recs - s/p BTK amputation on 12/29 - Non-weight bearing RLE - pillow under distal end of stump NOT knee. Goal: keep knee completely straight - Dressing to remain in place for 2-3 weeks post-op - Gabapentin to 300mg TID for neuropathic pain in the stump LLE/Hip Pain At some point patient will need an arthroplasty but ideally he could recover from his BKA first. However, this is significantly limiting his ability to recover from right lower extremity amputation and at this point he is essentially bed bound and could not work with PT. - Per ortho: No acute intervention planned at this time due to risks of surgery. Also no plan to doa joint injection while in patient. They will follow-up as outpatient - Also reached out to IR who said they do not do joint injections on inpatients, will contact [facility] radiology to see if they would recommend an injection into the hip/bursa - improving control on current regimen - Tylenol 1000 q6 PRN, WORKERS' COMPENSATION MAGISTRATE tramadol - Robaxin 750mg q4 - lidocaine patch daily - d/c scheduled dilaudid - begin MS Contin TID 15, 15, 30 with MSIR 15 q4 PRN for breakthrough pain - Gabapentin to 300mg tid - no acute plans from ortho regarding osteoarthritis management - following with with ortho regarding arthroplasty plans per note on Monday 01/01 - Limit weightbearing of LLE - Physical Therapy as able - Seen once now, recommend NICHOLE at discharge Type 2 Diabetes, on home insulin, poorly controlled, with hyperglycemia and persistently elevated AM fasting levels. Improving since latest basal adjustment. Continue to monitor for improvement. WORKERS' COMPENSATION MAGISTRATE regimen of 45 units glargine daily with 10 units lispro with meals Hemaglobin A1C 13.9 Blood glucose has been elevated throughout the day, and past 2 fasting sugars have been elevated -55 U glargine nightly -Increased Mealtime aspart to 18 units with meals - Target BG 140-180 - Nutrition consulted for dietary recs and patient education, appreciate recs - Vit C 500mg daily - Vit D3 2000 units daily - BMP daily Pressure Wound - Buttocks Discovered overnight on 01/02. Wound care evaluation ordered. Have seen and left recommendations. Will not follow patient - Zinc paste or Zinc- Dimethicone spray to buttocks BID and PRN with pericare - strict q2hr turns - avoid placing pillows directly behind buttocks when turning - float heel off mattress - Disposable dri-deshawn chux, avoid cloth - waffle cushion when up in chair. Limit OOB time to 1-2hrs - No briefs - if no improvement in skin condition, consider First Step Cirrus mattress Psychological Well-Being Patient with some lability and some nursing concerns for waxing and waning awareness and possible delirium -CTM -Med Psych consult active, appreciate recs - Have seen patient and will continue to follow Non active: Ketoacidosis - resolved - BMP daily Leukocytosis: acute increase in WBC 9.46 -> 12.41 on 01/04. Remains afebrile and asymptomatic: Resolved (12.41 -> 7.06) - trend fever curve and continue to monitor for resolution - low threshold to re-draw blood cultures if acutely symptomatic or a fever develops - CBC daily Deep Vein Thrombosis of the left lower extremity - Diagnosed in August 2020 - WORKERS' COMPENSATION MAGISTRATE Eliquis 5mg BID Hypothyroidism - continue WORKERS' COMPENSATION MAGISTRATE levothyroxine VTE Prophylaxis - WORKERS' COMPENSATION MAGISTRATE Eliquis 5mg BID Discharge Plan PT recommending NICHOLE Consults Infectious Disease, Ortho, Med Psych, and Nutrition Uri Miller, MS3 I was present with the medical student for the history, exam, and medical decision making documented. I have edited the medical student note as appropriate. Desiere Marcano DO 01/06/2021 16:59 ATTENDING ATTESTATION: Date of service: 01/06/2021 The resident physician was present with the medical student for the history, exam, and medical decision making documented above. I have personally performed my own physical exam and medical decision making. I have personally reviewed laboratory studies, medications, and records. I have verified and agree with (or, as indicated, have edited in blue) the combined medical student's/resident physician's documentation. Additionally: Appreciate ID assistance Tj Hitchcock MD Internal Medicine Hospitalist Service 01/06/2021 17:39 * Mars Ledezma - 01/05/2021 1522 EDT Case Management Note: Recommended Discharge Destination: [facility]. Pt has been listed in [facility]. Pain management s/p BKA in process and it is anticipated that pt will be cleared for discharge in a few days as plan is solidified. New clinical notes submitted to [facility]. This director underwriter sales left messages with admission coordinators at the following facilities: [facility], [facility], and [place]. Will continue to follow for discharge planning. Mras Ledezma RN, LANDSCAPING SPECIALIST, [facility] Pager # [phone] * Tj Hitchcock MD - 01/05/2021 0722 EDT Medicine Progress Note Service Date: 01/05/2021 Admit Date: 12/22/2020 19:00 Reason for Admission: 60 y.o. male admitted with a chief complaint of left leg pain and now with a principal diagnosis of management of severe diabetic right foot wound. 24 Hour Events: - able to work with PT yesterday - they continue to recommend NICHOLE at discharge Subjective/Objective Subjective Mr. Scott reports he is doing okay this morning. He was able to sleep through the night without episodes of hip pain causing awakening. This morning his pain is still present, but he is reassured that he was able to work with PT yesterday afternoon. He is wondering what the plan is regarding hip management and we discussed that we are working to keep his pain under control and are waiting to hearback from the ortho team regarding their recommendations on his hip. Encouraged continued engagement with PT as able. He continues to report little to no pain in his right leg. He otherwise denies nausea, vomiting, SOB, CP, fevers, or chills and reports passing formed BM's. Review of Systems A ten point review of systems was performed and was negative except for pertinent positives noted in the HPI Objective Vital Signs Temp: [36.6 ??C (97.9 ??F)-37.1 ??C (98.8 ??F)] , Heart Rate: [91 BPM-101 BPM] , Resp: [16-20] , BP: (106-133)/(63-82) , SpO2: [93 %-98 %] Physical Exam General appearance: Cooperative, alert Lungs: clear to auscultation bilaterally, non labored breathing Heart: regular rate and rhythm, S1, S2 normal Abdomen: soft, non-tender; bowel sounds normal; no masses, no organomegaly Neurologic: AAO to person and place Extremities: extremities warm, no cyanosis or edema. L hip tender to palpation. R stump elevated onpillow and wrapped. Able to lift R leg easily, L leg mobility very limited by pain Pulses: LLE DP's palpable, RLE footless Skin: Skin color, temperature, turgor normal. Psych: quite tearful during the interview when discussing his pain Is PICC or central line present? Yes, it is still present. The line is still required. Labs Recent Labs 01/03/21 0509 01/04/21 0635 01/05/21 0545 WBC 9.46 12.41* 7.06 RBC 3.14* 3.10* 2.99* HGB 9.4* 9.5* 9.3* HCT 28.6* 28.3* 28.4* MCV 91 91 95 MCH 29.9 30.6 31.1 MCHC 32.9 33.6 32.7* PLT 369 407* 388* Recent Labs 01/03/21 0509 01/04/21 0635 01/05/21 0545 NA 133* 134* 138 K 4.7 4.8 4.7 CL 96 97 98 CO2 30 27 32 BUN 15 19 18 CREATININE 0.50* 0.55* 0.57* Glucose: 217/230/209/162/163/230 Hemoglobin A1C: 13.9 Lab Results Component Value Date CRP 219.2 (H) 12/27/2020 CRPP 11.7 (H) 03/09/201612/23 Bone Biopsy: Preliminary result: moderate Strep agalactiae (Group B) 12/23 Blood Cultures: Preliminary result: Anaerobic bottle positive for MSSA at 18 hours. Aerobic positive for MSSA at 23 hours 12/24 Blood Cultures: NGTD Imaging No new imaging Assessment/Plan Assessment Jeff Scott is a 60 y.o. 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 Sympoms improved with dilaudid and antibiosis. Seen by ortho and underwent right BTK amputation on 12/29 for infection control. Surgical course was uncomplicated. However, post- operative mobility has been limited by severe left hip pain with evidence of OA and degenerative labrum tears by MRI. Orthopedics discussed potential for total hip arthroplasty and recommended against surgery at this time due to risk of complications given A1C levels and bacteremia. Will follow up to see if a bursal injection would be possible for acute pain control to assist with rehabilitation progress. PT has seen and begun to work with him and recommend NICHOLE at discharge at this time. Pain plan adjusted with goal of increasing patient mobility. We wi ll continue to titrate his insulin for better glucose control. Plan Sepsis due to MSSA Bacteremia Osteomyelitis of R foot 12/23 blood cultures: preliminary read: MSSA in anaerobic cultures and aerobic cultures TTE on 12/25 -> no evidence of IE but poor imaging -Previous wound cultures obtained preliminary read: moderate Strep agalactiae (Group B) - ID consulted for MSSA bacteremia, appreciate recs - continue cefazolin through 01/12 now that he is s/p BKA with negative cultures - PICC placed 12/31 - Ortho consulted, appreciate recs - s/p BTK amputation on 12/29 - Non-weight bearing RLE - pillow under distal end of stump NOT knee. Goal: keep knee completely straight - Dressing to remain in place for 2-3 weeks post-op - Increase Gabapentin to 300mg TID for neuropathic pain in the stump LLE/Hip Pain At some point patient will need an arthroplasty but ideally he could recover from his BKA first. However, this is significantly limiting his ability to recover from right lower extremity amputation and at this point he is essentially bed bound and could not work with PT. - Per ortho: No acute intervention planned at this time due to risks of surgery. Also no plan to doa joint injection while in patient. They will follow-up as outpatient - Also reached out to IR who said they do not do joint injections on inpatients, will contact [facility] radiology to see if they would recommend an injection into the hip/bursa - improving control on current regimen - Tylenol 1000 q6 PRN, WORKERS' COMPENSATION MAGISTRATE tramadol - Robaxin 750mg q4 - lidocaine patch daily - increased Schedule Dilaudid PO 2-4 mg q3hrs - increase gabapentin to 300mg tid - no acute plans from ortho regarding osteoarthritis management - following with with ortho regarding arthroplasty plans per note on Monday 01/01 - Limit weightbearing of LLE - Physical Therapy as able - Seen once now, recommend NICHOLE at discharge Type 2 Diabetes, on home insulin, poorly controlled, with hyperglycemia and persistently elevated AM fasting levels WORKERS' COMPENSATION MAGISTRATE regimen of 45 units glargine daily with 10 units lispro with meals Hemaglobin A1C 13.9 Blood glucose has been elevated throughout the day, and past 2 fasting sugars have been elevated -Increase to 55 U glargine nightly -Increased Mealtime aspart to 18 units with meals - Target BG 140-180 - Nutrition consulted for dietary recs and patient education, appreciate recs - Vit C 500mg daily - Vit D3 2000 units daily - BMP daily Pressure Wound - Buttocks Discovered overnight on 01/02. Wound care evaluation ordered. Have seen and left recommendations. Will not follow patient - Zinc paste or Zinc- Dimethicone spray to buttocks BID and PRN with pericare - strict q2hr turns - avoid placing pillows directly behind buttocks when turning - float heel off mattress - Disposable dri-deshawn chux, avoid cloth - waffle cushion when up in chair. Limit OOB time to 1-2hrs - No briefs - if no improvement in skin condition, consider First Step Cirrus mattress Psychological Well-Being Patient with some lability and some nursing concerns for waxing and waning awareness and possible delirium -CTM -Med Psych consult active, appreciate recs - Have seen patient and will continue to follow Non active: Ketoacidosis - resolved - BMP daily Leukocytosis: acute increase in WBC 9.46 -> 12.41 on 01/04. Remains afebrile and asymptomatic: Resolved (12.41 -> 7.06) - trend fever curve and continue to monitor for resolution - low threshold to re-draw blood cultures if acutely symptomatic or a fever develops - CBC daily Deep Vein Thrombosis of the left lower extremity - Diagnosed in August 2020 - WORKERS' COMPENSATION MAGISTRATE Eliquis 5mg BID Hypothyroidism - continue WORKERS' COMPENSATION MAGISTRATE levothyroxine VTE Prophylaxis - WORKERS' COMPENSATION MAGISTRATE Eliquis 5mg BID Discharge Plan PT recommending NICHOLE Consults Infectious Disease, Ortho, Med Psych, and Nutrition Uri Miller, MS3 I was present with the medical student for the history, exam, and medical decision making documented. I have edited the medical student note as appropriate in debbi Marcano DO 01/05/2021 13:09 ATTENDING ATTESTATION: Date of service: 01/05/2021 The resident physician was present with the medical student for the history, exam, and medical decision making documented above. I have personally performed my own physical exam and medical decision making. I have personally reviewed laboratory studies, medications, and records. I have verified and agree with (or, as indicated, have edited in blue) the combined medical student's/resident physician's documentation. Tj Hitchcock MD Internal Medicine Hospitalist Service 01/05/2021 13:57 * Shelly Garcia, PT - 01/04/2021 1968 EDT [facility] Therapy Acute Therapies [facility] Physical Therapy Encounter Note Date of Service: 01/04/2021 Subjective/Objective Subjective I just need to take things slowly. Objective Intervention completed today: Time: 1300 Total treatment time: 30 minutes. Timed code treatment minutes: 30 Vital signs were monitored and were stable throughout physical therapy session. Therapeutic Activity: Patient supine in bed upon entering room. Supine>sit exiting toward left side of bed with max Ax1. Heavy use of bed rails. Slow throughouttransfer requiring moving inches at a time. Required max assist to reposition at EOB. Static sitting for >10 mins with supervision. Sit>supine with max Ax2. Therapeutic Exercise: Seated therex x 10 Long arc quad Hip abduction/adduction Patient supine in bed with call larson in hand. Patient/Family Education: Topic: Activity pacing/Energy conservation Assistive device/technique Balance Bed mobility Discharge planning Exercise Precautions/protocol Role of therapy Safety Transfers Learner: patient Method: verbal and demonstration Barriers to Learning: none noted Outcome: requires assist and needs practice Team Communication: Consulted with RN before and after treatment with regards to patient status. Assessment/Plan Assessment Patient is currently requiring max assist to sit at EOB but was able to tolerate all mobility todaydespite his left hip pain. His pain appeared to be much better managed than previous encounters. Patient does benefit from slow step hawk cues for sequencing and time to process information. Continueto recommend NICHOLE to facilitate maximal functional outcome. Plan Continue per plan of care Recommended Discharge Destination: Sub-acute rehabilitation Recommended Discharge Services: Physical therapy at rehabilitation facility Recommended Equipment Needs: To be determined by next care provider Other recommendations: No other consults recommended at this time Pager: [phone] Shelly Garcia, PT 01/04/2021 14:05 * Andres Hewitt, JARVIS - 01/04/2021 0937 EDT PROGRESS NOTES Data: Patient is POD #5 s/p right BKA. Pt complaining of left hip pain, right leg pain. Medication administered per MAY. A&O x 3 with intermittent confusion. Able to make needs known to staff. [id number], 12/12 left hip pain managed with pain medication per MAY. Action: Medication administered per MAY. Hourly rounding performed. ?? Response: Medications and meals tolerated well. Call larson within reach. Needs met at this time. Will continue to monitor ANDRES HEWITT RN 01/04/2021 9:37 * Tj Hitchcock MD - 01/04/2021 0735 EDT Medicine Progress Note Service Date: 01/04/2021 Admit Date: 12/22/2020 19:00 Reason for Admission: 60 y.o. male admitted with a chief complaint of left leg pain and now with a principal diagnosis of management of severe diabetic right foot wound. 24 Hour Events: - wound care evaluated wound on buttocks - recommendations in chart, will not be following - mild delirium/halucinosis reported yesterday - appears resolved this morning Subjective/Objective Subjective Mr. Scott reports he is doing okay this morning. Denies pain in his right foot at the surgical sitebut continues to endorse severe left hip pain. Of note, did not receive pain medication overnight due to missscheduling as PRN instead of scheduled q3. He reports good PO intake. He is making good urine and reports that he is passing bowel movements. Unclear picture as to consistency or frequency due to patient memory deficits, but reported as formed in I/O tracking. He otherwise denies nausea, vomiting, SOB, CP, calve pain, abdominal pain. He does not endorse a memory of hallucinosis, but reports waking up with some confusion as to where he is, but this quickly resolves. He otherwise has no complaints at this time. Review of Systems A ten point review of systems was performed and was negative except for pertinent positives noted in the HPI Objective Vital Signs Temp: [36.9 ??C (98.4 ??F)-37.2 ??C (99 ??F)] , Heart Rate: [96 BPM-97 BPM] , Resp: [16-20] , BP: (122-147)/(74-82) , SpO2: [93 %-96 %] Physical Exam General appearance: Cooperative, alert Lungs: clear to auscultation bilaterally, non labored breathing Heart: regular rate and rhythm, S1, S2 normal Abdomen: soft, non-tender; bowel sounds normal; no masses, no organomegaly Neurologic: AAO to person and place Extremities: extremities warm, no cyanosis or edema. L hip tender to palpation. R stump elevated onpillow and wrapped. Able to lift R leg easily, L leg mobility very limited by pain Pulses: LLE DP's palpable, RLE footless Skin: Skin color, temperature, turgor normal. Psych: quite tearful during the interview when discussing his pain Is PICC or central line present? Yes, it is still present. The line is still required. Labs Recent Labs 01/02/2152801/03/21 05001/04/21 0635 WBC 9.36 9.46 12.41* RBC 3.09* 3.14* 3.10* HGB 9.2* 9.4* 9.5* HCT 28.1* 28.6* 28.3* MCV 91 91 91 MCH 29.8 29.9 30.6 MCHC 32.7* 32.9 33.6 PLT 354 369 407* Recent Labs 01/02/2152801/03/21 0509 01/04/21 0635 NA 134* 133* 134* K 4.5 4.7 4.8 CL 98 96 97 CO2 28 30 27 BUN 13 15 19 CREATININE 0.52* 0.50* 0.55* Glucose: 217/230/209/162/163/230 Hemoglobin A1C: 13.9 Lab Results Component Value Date CRP 219.2 (H) 12/27/2020 CRPP 11.7 (H) 03/09/201612/23 Bone Biopsy: Preliminary result: moderate Strep agalactiae (Group B) 12/23 Blood Cultures: Preliminary result: Anaerobic bottle positive for MSSA at 18 hours. Aerobic positive for MSSA at 23 hours 12/24 Blood Cultures: NGTD Imaging 12/28 MRI Hip w/o contrast IMPRESSION: 1. Feathery pattern of muscle edema with areas of mild enhancement involving the adductor musculature, visualized portions of the proximal vastus musculature, and gluteus medius and minimus muscles about the evaluated left hip. Imaging features are nonspecific and can be seen with muscle injury, inflammation, or diabetic muscle ischemia. Infectious myositis can be considered in the appropriate clinical context. ?? 2. Indistinct band-shaped area of altered signal and enhancement traversing the femoral neck and extending to the lesser trochanter concerning for stress reaction or impending insufficiency fracture in the setting of severe osteopenia. Please correlate. ?? 3. Severe left hip joint osteoarthrosis with extensive degenerative tearing of the acetabular labrum. ?? 4. Trochanteric bursitis with small volume fluid distending the right trochanteric bursa. ?? 5. Moderate right hip joint osteoarthrosis and mild right trochanteric bursitis demonstrated on thewide [id number] coronal images. Assessment/Plan Assessment Jeff Scott is a 60 y.o. 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 Sympoms improved with dilaudid and antibiosis. Seen by ortho and underwent right BTK amputation on 12/29 for infection control. Surgical course was uncomplicated. However, post- operative mobility has been limited by severe left hip pain with evidence of OA and degenerative labrum tears by MRI. Orthopedics indicated they would discuss potential for total hip arthroplasty on 01/03. Will follow up on recommendations from that conversation today. PT has seen and will not work with him until pain is better controled. Pain plan adjustedwith goal of increasing patient mobility. We will continue to titrate his insulin for better glucose control. Plan Sepsis due to MSSA Bacteremia Osteomyelitis of R foot 12/23 blood cultures: preliminary read: MSSA in anaerobic cultures and aerobic cultures TTE on 12/25 -> no evidence of IE but poor imaging -Previous wound cultures obtained preliminary read: moderate Strep agalactiae (Group B) - ID consulted for MSSA bacteremia, appreciate recs - continue cefazolin through 01/12 now that he is s/p BKA with negative cultures - PICC placed 12/31 - Ortho consulted, appreciate recs - s/p BTK amputation on 12/29 - Non-weight bearing RLE - pillow under distal end of stump NOT knee. Goal: keep knee completely straight - Dressing to remain in place for 2-3 weeks post-op - Gabapentin 200mg TID for neuropathic pain in the stump Leukocytosis: acute increase in WBC 9.46 -> 12.41 on 01/04. Remains afebrile and asymptomatic - trend fever curve and continue to monitor for resolution - low threshold to re-draw blood cultures if acutely symptomatic or a fever develops - CBC daily LLE/Hip Pain At some point patient will need an arthroplasty but ideally he could recover from his BKA first. However, this is significantly limiting his ability to recover from right lower extremity amputation and at this point he is essentially bed bound and could not work with PT. Seen by orthopedics Sunday who believe this is secondary to severe osteoarthritis, though MRI is concerning for stress fracture in femoral neck. They will discuss with arthroplasty team on Sunday. - If no acute intervention planned by arthroplasty team, will consult APS for recommendations for pain management - poorly controlled on current regimen - Tylenol 1000 q6 PRN, WORKERS' COMPENSATION MAGISTRATE tramadol - Robaxin 750mg q4 - lidocaine patch daily - increased Schedule Dilaudid PO 2-4 mg q3hrs - gabapentin 200 mg tid - no acute plans from ortho regarding osteoarthritis management - following with with ortho regarding arthroplasty plans per note on Monday 01/01 - Limit weightbearing of LLE - Physical Therapy as able Type 2 Diabetes, on home insulin, poorly controlled, with hyperglycemia WORKERS' COMPENSATION MAGISTRATE regimen of 45 units glargine daily with 10 units lispro with meals Hemaglobin A1C 13.9 Blood glucose has been elevated throughout the day, and past 2 fasting sugars have been elevated -Increase to 50 U glargine nightly -Increased Mealtime aspart to 18 units with meals - Target BG 140-180 - Nutrition consulted for dietary recs and patient education, appreciate recs - Vit C 500mg daily - Vit D3 2000 units daily - BMP daily Pressure Wound - Buttocks Discovered overnight on 01/02. Wound care evaluation ordered. Have seen and left recommendations. Will not follow patient - Zinc paste or Zinc- Dimethicone spray to buttocks BID and PRN with pericare - strict q2hr turns - avoid placing pillows directly behind buttocks when turning - float heel off mattress - Disposable dri-deshawn chux, avoid cloth - waffle cushion when up in chair. Limit OOB time to 1-2hrs - No briefs - if no improvement in skin condition, consider First Step Cirrus mattress Psychological Well-Being Patient with some lability and some nursing concerns for waxing and waning awareness and possible delirium -CTM -Med Psych consult active, appreciate recs - Have seen patient and will continue to follow Non active: Ketoacidosis - resolved - BMP daily Deep Vein Thrombosis of the left lower extremity - Diagnosed in August 2020 - WORKERS' COMPENSATION MAGISTRATE Eliquis 5mg BID Hypothyroidism - continue WORKERS' COMPENSATION MAGISTRATE levothyroxine VTE Prophylaxis - WORKERS' COMPENSATION MAGISTRATE Eliquis 5mg BID Discharge Plan Pending clinical improvement, will d/c to acute rehab vs [facility]. Case management is working on placement at this time. Will likely benefit from acute rehab post-op and he would prefer acute rehab over [facility]. Waiting for PT eval to proceed with discharge planning. Consults Infectious Disease, Ortho, Med Psych, and Nutrition Uri Miller, MS3 I was present with the medical student for the history, exam, and medical decision making documented. I have edited the medical student note as appropriate. Desiree Marcano DO 01/04/2021 13:21 ATTENDING ATTESTATION: Date of service: 01/04/2021 The resident physician was present with the medical student for the history, exam, and medical decision making documented above. I have personally performed my own physical exam and medical decision making. I have personally reviewed laboratory studies, medications, and interval records. I have verified and agree with (or, as indicated, have edited in blue) the combined medical student's/resident physician's documentation. Additionally: ?? Some improvement in pain control today. Able to mobilize to side of bed with PT. ?? Await orthopedics input regarding feasibility of left ELVIN. ?? Plan APS consult if no surgical intervention anticipated in near future on right hip. ?? Continue to dose adjust insulin ?? PT recommending [facility]. Tj Hitchcock MD Internal Medicine Hospitalist Service 01/04/2021 17:36 * Andres Hewitt RN - 01/03/2021 1048 EDT PROGRESS NOTES Data: Patient is POD #4 s/p right BKA. Pt complaining of left hip pain, right leg pain. Medication administered per MAY. A&O x 3 with intermittent confusion. Able to make needs known to staff. [id number], 12/12 left hip pain managed with pain medication per MAY. Pt having episodes of seeing and talking to his brother in the room while his brother is not there, talking with nursing staff about ch asing the dogs last night, and then apologizes to staff for confusion. Pt had one episode of emotional confusion today. MD aware of the above. Action: Medication administered per MAY. Hourly rounding performed. Response: Medications and meals tolerated well. Call larson within reach. Needs met at this time. Will continue to monitor ANDRES HEWITT RN 01/03/2021 10:48 * Shelly Garcia, PT - 01/03/2021 0959 EDT [facility] Rehabilitation Therapy Acute Therapy [facility] Physical Therapy Contact Note Date of Service: 01/03/2021 Attempted to see patient for PT, but per patient and RN report patient with significant pain in left hip with repositioning in bed. Patient visibly uncomfortable with increasing HOB, declining ability to perform further mobility. Will need patient's pain to be better controlled for patient to be abl e to participate with PT. Will follow-up per plan of care. Shelly Garcia, JAZMIN 01/03/2021 9:59 * Tj Hitchcock MD - 01/03/2021 0742 EDT Medicine Progress Note Service Date: 01/03/2021 Admit Date: 12/22/2020 19:00 Reason for Admission: 60 y.o. male admitted with a chief complaint of left leg pain and now with a principal diagnosis of management of severe diabetic right foot wound. 24 Hour Events: - NAEO -Sacral skin breakdown noted by nursing Subjective/Objective Subjective This morning Mr. Scott says that he's tired this morning, last night went well. Reporting ongoing significant pain in his L hip with repositioning in bed, but I want to get through them. No change in pain this admission, does not feel like it has improved at all. Says the medication helps with his pain for ~3 hours but not enough that it allows him to be more mobile. Quite upset that he can't function due to pain. Says almost no pain in his right leg unless you use it like a pogo stick. Review of Systems A ten point review of systems was performed and was negative except for pertinent positives noted in the HPI Objective Vital Signs Temp: [36.9 ??C (98.5 ??F)-37.1 ??C (98.8 ??F)] , Heart Rate: --, Resp: [16-20] , BP: (129-147)/(70-79) , SpO2: [92 %-97 %] Physical Exam General appearance: Cooperative, alert Lungs: clear to auscultation bilaterally, non labored breathing Heart: regular rate and rhythm, S1, S2 normal Abdomen: soft, non-tender; bowel sounds normal; no masses, no organomegaly Neurologic: AAO to person and place Extremities: extremities warm, no cyanosis or edema. L hip tender to palpation. R stump elevated onpillow and wrapped. Able to lift R leg easily, L leg mobility very limited by pain Pulses: LLE DP's palpable, RLE footless Skin: Skin color, temperature, turgor normal. Psych: quite tearful during the interview when discussing his pain Is PICC or central line present? Yes, it is still present. The line is still required. Labs Recent Labs 01/01/21 0612 01/02/21 0529 01/03/21 0509 WBC 9.61 9.36 9.46 RBC 3.17* 3.09* 3.14* HGB 9.6* 9.2* 9.4* HCT 28.9* 28.1* 28.6* MCV 91 91 91 MCH 30.3 29.8 29.9 MCHC 33.2 32.7* 32.9 PLT 375 354 369 Recent Labs 01/01/21 0612 01/02/21 0529 01/03/21 0509 NA 135* 134* 133* K 4.3 4.5 4.7 CL 98 98 96 CO2 29 28 30 BUN 11 13 15 CREATININE 0.51* 0.52* 0.50* Glucose: 165/214/282/230/126/99 Hemoglobin A1C: 13.9 Lab Results Component Value Date CRP 219.2 (H) 12/27/2020 CRPP 11.7 (H) 03/09/201612/23 Bone Biopsy: Preliminary result: moderate Strep agalactiae (Group B) 12/23 Blood Cultures: Preliminary result: Anaerobic bottle positive for MSSA at 18 hours. Aerobic positive for MSSA at 23 hours 12/24 Blood Cultures: NGTD Imaging 12/28 MRI Hip w/o contrast IMPRESSION: 1. Feathery pattern of muscle edema with areas of mild enhancement involving the adductor musculature, visualized portions of the proximal vastus musculature, and gluteus medius and minimus muscles about the evaluated left hip. Imaging features are nonspecific and can be seen with muscle injury, inflammation, or diabetic muscle ischemia. Infectious myositis can be considered in the appropriate clinical context. ?? 2. Indistinct band-shaped area of altered signal and enhancement traversing the femoral neck and extending to the lesser trochanter concerning for stress reaction or impending insufficiency fracture in the setting of severe osteopenia. Please correlate. ?? 3. Severe left hip joint osteoarthrosis with extensive degenerative tearing of the acetabular labrum. ?? 4. Trochanteric bursitis with small volume fluid distending the right trochanteric bursa. ?? 5. Moderate right hip joint osteoarthrosis and mild right trochanteric bursitis demonstrated on thewide [id number] coronal images. Assessment/Plan Assessment Jeff Scott is a 60 y.o. 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 Sympoms improved with dilaudid and antibiosis. Seen by ortho and underwent right BTK amputation on 12/29 for infection control. Surgical course was uncomplicated However, post- operative mobility has been limited by severe left hip painwith evidence of OA and degenerative labrum tears by MRI. Orthopedics will discuss potential for tot al hip arthroplasty on Sunday (today) and will follow up with recommendations but have no acute interventions planned at this time. PT has seen and will not work with him until pain is better controled. Pain plan adjusted today with goal of increasing patient mobility. We will continue to titrate his insulin for better glucose control. Plan Sepsis due to MSSA Bacteremia Osteomyelitis of R foot 12/23 blood cultures: preliminary read: MSSA in anaerobic cultures and aerobic cultures TTE on 12/25 -> no evidence of IE but poor imaging -Previous wound cultures obtained preliminary read: moderate Strep agalactiae (Group B) - ID consulted for MSSA bacteremia, appreciate recs - continue cefazolin through 01/12 now that he is s/p BKA with negative cultures - PICC placed 12/31 - CBC daily - Ortho consulted, appreciate recs - s/p BTK amputation on 12/29 - Non-weight bearing RLE - pillow under distal end of stump NOT knee. Goal: keep knee completely straight - Dressing to remain in place for 2-3 weeks post-op - Increase to gabapentin 200mg TID for neuropathic pain in the stump LLE/Hip Pain At some point patient will need an arthroplasty but ideally he could recover from his BKA first. However, this is significantly limiting his ability to recover from right lower extremity amputation and at this point he is essentially bed bound and could not work with PT. Seen by orthopedics Sunday who believe this is secondary to severe osteoarthritis, though MRI is concerning for stress fracture in femoral neck. They will discuss with arthroplasty team on Sunday. - poorly controlled on current regimen - Tylenol 1000 q6 PRN, WORKERS' COMPENSATION MAGISTRATE tramadol - Robaxin 750mg q4 - lidocaine patch daily - increased Schedule Dilaudid PO 2-4 mg q3hrs -increase gabapentin from 100 mg tid to 200 mg tid (done) - no acute plans from ortho regarding osteoarthritis management - follow up on Sunday regarding arthroplasty plans from ortho - Limit weightbearing of LLE - Physical Therapy as able Type 2 Diabetes WORKERS' COMPENSATION MAGISTRATE regimen of 45 units glargine daily with 10 units lispro with meals Hemaglobin A1C 13.9 Blood glucose has been elevated throughout the day, and past 2 fasting sugars have been elevated -Increase to 50 U glargine nightly -Increased Mealtime aspart to 18 units with meals - Target BG 140-180 - Nutrition consulted for dietary recs and patient education, appreciate recs - Vit C 500mg daily - Vit D3 2000 units daily - BMP daily -Dermatitis, maceration, epidermal sloughing of buttock area - Wound care following. Frequent repositioning - offloading buttocks. Zinc spray or Desitin. Consideration of specialty mattress. . Psychological Well-Being - Patient is more emotional today with some lability and some nursing concerns for waxing and waning awareness and possible delirium -CTM -Med Psych consult active, appreciate recs - Have seen patient and will continue to follow Non active: Ketoacidosis - resolved - BMP daily Deep Vein Thrombosis of the left lower extremity - Diagnosed in August 2020 - WORKERS' COMPENSATION MAGISTRATE Eliquis 5mg BID Hypothyroidism - continue WORKERS' COMPENSATION MAGISTRATE levothyroxine VTE Prophylaxis - WORKERS' COMPENSATION MAGISTRATE Eliquis 5mg BID Discharge Plan Pending clinical improvement, will d/c to acute rehab vs [facility]. Case management is working on placement at this time. Will likely benefit from acute rehab post-op and he would prefer acute rehab over [facility]. Waiting for PT eval to proceed with discharge planning. Consults Infectious Disease, Ortho, Med Psych, and Nutrition Uri Miller, MS3 I was present with the medical student for the history, exam, and medical decision making documented. I have edited the medical student note as appropriate in underline. Desiree Marcano DO 01/03/2021 15:00 ATTENDING ATTESTATION: Date of service: 01/03/2021 The resident physician and I were present with the medical student for the history, exam, and medical decision making documented above. I have personally performed my own physical exam and medical decision making. I have personally reviewed laboratory studies, medications, radiographic results, and records. I have verified and agree with (or, as indicated, have edited in blue) the combined medical student's/resident physician's documentation. Tj Hitchcock MD Internal Medicine Hospitalist Service 01/03/2021 18:36 * Mulugeta Morales RN - 01/02/2021 1654 EDT Data: Pt POD 4 R BKA. A&Ox3, forgetful, cooperative and pleasant. VSS, no tele. BLE pain L>R, controlling w/ scheduled regimen. Areas of redness on back/buttocks, blanchable. Action: Meds as ordered. Encouraging and assisting w/ frequent T&R. Preventative mepilex placedon coccyx. Skin care and protective barrier applied. Safety maintained. Response: Pt resting comfortably. Plan of care progressing. MULUGETA MORALES RN 01/02/2021 10:42 * Js Meza MD - 01/02/2021 1048 EDT Orthopaedic progress note: Problem: Right transtibial amputation, left end-stage osteoarthritis with impending stress fracture S: Patient doing well this morning. His pain is well controlled. He is sleeping comfortably. He is tolerating diet. He understands his weightbearing status. Expresses gratitude and some confusion given TBI O: Dressing, clean, dry, intact, knee in extension, no strikethrough palp able femoral pulse 5/5 iliopsoas A/P patient doing well post BKA Nonweightbearing right lower extremity, protected, partial weightbearing left lower extremity Activity as tolerated Elevate right residual limb in extension ABX per ID Okay for DVT prophylaxis Pending placement Medical psychology Tight glycemic control to facilitate wound healing * Stanley Tillman MD - 01/02/2021 0751 EDT Medicine Progress Note Service Date: 01/02/2021 Admit Date: 12/22/2020 19:00 Reason for Admission: 60 y.o. male admitted with a chief complaint of left leg pain and now with a principal diagnosis of management of severe diabetic right foot wound. 24 Hour Events: - NAEO Subjective/Objective Subjective Mr. Scott has no new complaints this morning. He continues to report significant hip pain that is limiting his mobility to the point where he can only move a couple of inches in bed. He is otherwise feeling well with no pain in his right leg stump or other specific complaints. Review of Systems A ten point review of systems was performed and was negative except for pertinent positives noted in the HPI Objective Vital Signs Temp: [36.6 ??C (97.9 ??F)-37.5 ??C (99.5 ??F)] , Heart Rate: [93 BPM-95 BPM] , Resp: [18-20] , BP:(140-143)/(72-83) , SpO2: [94 %-98 %] Physical Exam General appearance: Cooperative, alert Lungs: clear to auscultation bilaterally, non labored breathing Heart: regular rate and rhythm, S1, S2 normal Abdomen: soft, non-tender; bowel sounds normal; no masses, no organomegaly Neurologic: AAO to person and place Extremities: extremities warm, atraumatic, no cyanosis or edema. L hip tender to palpation. R stumpelevated on pillow and wrapped Pulses: LLE DP's palpable, RLE not assessed Skin: Skin color, temperature, turgor normal. Is PICC or central line present? Yes, it is still present. The line is still required. Medications - WORKERS' COMPENSATION MAGISTRATE Levothyroxine 112mcg daily - WORKERS' COMPENSATION MAGISTRATE Eliquis 5mg BID (holding prior to surgery) - WORKERS' COMPENSATION MAGISTRATE Metformin (holding) - WORKERS' COMPENSATION MAGISTRATE Sitagliptin (holding) - WORKERS' COMPENSATION MAGISTRATE Tramadol 50mg BID PRN - WORKERS' COMPENSATION MAGISTRATE Insulin glargine 45 units sub q nightly - WORKERS' COMPENSATION MAGISTRATE Insulin lispro 10 units sub q with meals (holding) - WORKERS' COMPENSATION MAGISTRATE Atorvastatin 20mg daily Labs Recent Labs 12/31/20 0646 01/01/2161101/02/21528 WBC 8.45 9.61 9.36 RBC 3.21* 3.17* 3.09* HGB 9.8* 9.6* 9.2* HCT 29.0* 28.9* 28.1* MCV 90 91 91 MCH 30.5 30.3 29.8 MCHC 33.8 33.2 32.7* PLT 315 375 354 Recent Labs 12/31/20 0646 01/01/2161101/02/21528 NA 136 135* 134* K 4.3 4.3 4.5 CL 99 98 98 CO2 29 29 28 BUN 11 11 13 CREATININE 0.50* 0.51* 0.52* Glucose: 165/214/282/230/126/99 Hemoglobin A1C: 13.9 Lab Results Component Value Date CRP 219.2 (H) 12/27/2020 CRPP 11.7 (H) 03/09/201612/23 Bone Biopsy: Preliminary result: moderate Strep agalactiae (Group B) 12/23 Blood Cultures: Preliminary result: Anaerobic bottle positive for MSSA at 18 hours. Aerobic positive for MSSA at 23 hours 12/24 Blood Cultures: NGTD Imaging X-ray Left Hip FINDINGS / IMPRESSION: Left hip AP supine and cross table lateral views: There is severe osteoarthrosis involving the left hip joint. Milder degenerative changes noted in the visualized lower most portion of the incompletely imaged left SI joint and along the pubic symphysis. Vasectomy surgical clips are partially imaged. The bones appear diffusely demineralized. The severity the osteopenia reduces radiographic sensitivity for the detection of a subtle or nondisplaced acute fracture if present. Also, with overlying soft tissues obscuring the region of the interest on the crosstable lateral view including the femoralhead and neck. There is a high degree of clinical concern for a radiographically occult fracture CT imaging can beobtained for further assessment. CT Left Hip w/o contrast FINDINGS / IMPRESSION: * No evidence of acute fracture or dislocation. * There are however end-stage degenerative changes in the left hip with severe joint space narrowing resulting in cekb-he-neze as well as subchondral sclerosis and cyst formation in addition to exuberant osteophytosis. * Degrees of the normal except at the lateral aspect of the femoral head neck junction which while nonspecific suggest perhaps an underlying element of CAM- type femoroacetabular impingement was related to the severe osteoarthrosis. * Minimal remodeling in the weightbearing portion of the left femoral head without evidence of discrete flattening or collapse of the articular surface to suggest avascular necrosis. * Incidentally noted couple of elongated regions of intramuscular fat along the proximal aspect of the rectus femoris muscle with a couple of tiny foci of calcification, likely sequela from prior muscle injury with fat replacement, the possibility of intramuscular lipoma is less likely. X-Ray Right Foot FINDINGS / IMPRESSION: There are transmetatarsal amputations at the level of the proximal aspects of the first through fifth metatarsals. Plantar skin and subcutaneous soft tissue ulcer at about the level of the transmetatarsal amputations. There is prominent soft tissue swelling surrounding the ulcer and extending throughout the foot.Osseous irregularity at the amputation margins may be postsurgical. If there is a high degree of clinical concern for osteomyelitis then MR imaging can be obtained to further evaluate for this possibility. Degenerative joint changes and calcaneal enthesopathic changes are similar compared to the prior study. Atherosclerotic arterial calcification is again noted. 12/24 TTE Severely dilated RV, reduced RV function. LFEF 65%. Atria normal size. No regurg or stenosis seen. 12/28 MRI Hip w/o contrast IMPRESSION: 1. Feathery pattern of muscle edema with areas of mild enhancement involving the adductor musculature, visualized portions of the proximal vastus musculature, and gluteus medius and minimus muscles about the evaluated left hip. Imaging features are nonspecific and can be seen with muscle injury, inflammation, or diabetic muscle ischemia. Infectious myositis can be considered in the appropriate clinical context. ?? 2. Indistinct band-shaped area of altered signal and enhancement traversing the femoral neck and extending to the lesser trochanter concerning for stress reaction or impending insufficiency fracture in the setting of severe osteopenia. Please correlate. ?? 3. Severe left hip joint osteoarthrosis with extensive degenerative tearing of the acetabular labrum. ?? 4. Trochanteric bursitis with small volume fluid distending the right trochanteric bursa. ?? 5. Moderate right hip joint osteoarthrosis and mild right trochanteric bursitis demonstrated on thewide [id number] coronal images. Assessment/Plan Assessment Jeff Scott is a 60 y.o. 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 Sympoms improved with dilaudid and antibiosis. Seen by ortho and underwent right BTK amputation on 12/29 for infection control. Surgical course was uncomplicated and appears to be recovering well. Per ortho he is ready for discharge from their end when PT has evaluated. They will discuss potential for total hip arthroplasty on Sunday and will follow up with recommendations but have no acute interventions planned at this time. Will needPT consult to assess capabilities for [facility] vs acute rehab. PICC placed 12/31. We will continue to titrate his insulin for better glucose control. Plan Sepsis due to MSSA Bacteremia Osteomyelitis of R foot - s/p debridement by orthopedics in the ED, wound cultures obtained - preliminary read: moderate Strep agalactiae (Group B) - 12/23 blood cultures: preliminary read: MSSA in anaerobic cultures and aerobic cultures - TTE on 12/25 -> no evidence of IE but poor imaging - ID consulted, appreciate recs - continue cefazolin through 01/12 now that he is s/p BKA with negative cultures - PICC placed 12/31 - CBC daily - Ortho consulted, appreciate recs - s/p BTK amputation on 12/29 - okay to restart DVT ppx done - Non-weight bearing RLE - Okay for discharge after PT eval - pillow under distal end of stump NOT knee. Goal: keep knee completely straight - Dressing to remain in place for 2-3 weeks post-op - Gabapentin 100mg TID for neuropathic pain in the stump LLE/Hip Pain Significantly limiting his ability to recover from right lower extremity amputation. Seen by orthopedics yesterday who believe this is secondary to severe osteoarthritis. They will discuss with arthroplasty team on Sunday. At some point patient will need an arthroplasty but ideally he could recoverfrom his BKA first. The problem is he is having a lot of difficulty mobilizing at all post BKA and is basically bedbound due to hip pain. - poorly controlled on current regimen - Tylenol 1000 q6 PRN, WORK[employer]ENS[employer] MAGISTRATE tramadol - Robaxin 750mg q4 - lidocaine patch daily - Schedule Dilaudid PO 2-4 mg q4hrs - Recommended icing hip for bursitis - MRI hip showing osteoarthritis, torn labrum,trochaneteric bursitis and possible myositis of nonspecific etiology, plan to ask ortho about this - no acute plans from ortho regarding osteoarthritis management - follow up on Sunday regarding arthroplasty plans from ortho -Limit weightbearing of LLE - Physical Therapy as able Type 2 Diabetes WORK[employer]' COMPENS[employer] MAGISTRATE regimen of 45 units glargine daily with 10 units lispro with meals Hemaglobin A1C 13.9 Blood glucose has been elevated throughout the day, though his fasting checks have good control Continue 45 units glargine nightly Increase mealtime aspart to 15 units with meals - Target BG 140-180 - Nutrition consulted for dietary recs and patient education, appreciate recs - Vit C 500mg daily - Vit D3 2000 units daily - BMP daily Psychological Well-Being -Med Psych consult active, appreciate recs - Have seen patient and will continue to follow Non active: Ketoacidosis - resolved - BMP daily Deep Vein Thrombosis of the left lower extremity - Diagnosed in August 2020 - [employer]' COMPENSATION MAGISTRATE Eliquis 5mg BID Hypothyroidism - continue [employer] MAGISTRATE levothyroxine VTE Prophylaxis - [employer]' COMPENSATION MAGISTRATE Eliquis 5mg BID Discharge Plan Pending clinical improvement, will d/c to acute rehab vs [facility]. Case management is working on placement at this time. Will likely benefit from acute rehab post-op and he would prefer acute rehab over [facility]. Waiting for PT eval to proceed with discharge planning. Consults Infectious Disease, Ortho, Med Psych, and Nutrition Desiree Marcano DO Internal Medicine, PGY-1 Pager [phone]/Cortex 01/02/21 7:53 ATTENDING ATTESTATION: Date of service: 01/02/2021 I have interviewed and examined the patient and discussed with the housestaff. I agree with and edited (in blue) the findings and plan of care as documented in the note above. Stanley Tillman MD Internal Medicine Hospitalist Service 01/02/2021 14:58 * Seeker, MD Js - 01/01/2021 1115 EDT Orthopaedic Progress Note PROBLEM: Right transtibial amputation, 12/[address] Arzate, concerning findings of left femoralstress fracture 24 HOUR EVENTS: No acute overnight SUBJECTIVE: Pain currently tolerable. No other complaints, denies CP/SOB, new paresthesias. We discussed that he is feeling down. He has no suicidal ideation. We discussed medical psychology and he is in agreement. I have called medical psychology and left a message. OBJECTIVE: Gen: NAD, AOx3 RLE: Dressing C/D/I no strikethrough on residual limb splinting Palpable femoral pulse Able to maintain straight leg raise, 5/5 iliopsoas Palpable femoral pulse Labs: WBC/Hgb/Hct/Plts: 9.61/9.6/28.9/375 (01/02 612) Na/K/Cl/CO2: 135/4.3/98/29 (01/02 612) BUN/Cr/glu/ALT/AST/amyl/lip: 11/0.51/126/--/--/--/-- (01/02 612) ASSESSMENT/PLAN: Jeff Scott 60 y.o. male s/p from above. Doing well postoperatively. Pending safe discharge plan Pain control - multimodal, gabapentin added TID DVT Prophylaxis:??Ok from a orthopaedic standpoint Abx: Ancef??x 2 weeks per ID which will end January 12 Activity as tolerated Weight Bearing:?Nonweightbearing right residual limb, Limited weight bearing with a walker LLE Diet:?Consistent carb PT eval Js Meza MD 01/01/2021 11:16 * Sachin Castel MD - 01/01/2021 1007 EDT Name:Jeff Scott :1960 Orthopaedics Brief: Problem: Left hip pain Patient reports chronic moderate to severe osteoarthritis for the last 20 years in the left hip with waxing waning symptoms. However, approximately 1.5 weeks ago he stumbled and caught himself in a stairwell where he landed forcefully on the left foot. He did not fall or suffer any direct trauma. He had no immediate pain, but woke up the next morning with significant pain in the left hip and difficulty bearing weight. It was at that time, that he presented to the emergency department for evaluation of a right diabetic foot wound. He has essentially remained nonambulatory since that time. He localizes his pain to the lateral aspect of the hip extending down to the lateral aspect of the mid thigh. He also notes some intermittent pain in the left groin and buttock. He denies any pack pain, radiating pain to the knee or to the foot. States that his pain is severe with any motion, but particularly with internal and external rotation. He has had minimal improvement of his left hip painsince this acute flare 1.5 weeks ago. On examination, he is positioned supine and seated upright in bed with multiple pillows position onthe left hip. Passive range of motion to approximately 90 degrees of hip flexion with minimal pain.However, severe pain with approximately 5 degrees of internal rotation and 15 degrees of external rotation. Mild tenderness to palpation over the GT. Otherwise nontender. He is unwilling to perform astraight leg raise for me due to apprehension for pain. 3/out of 5 quad, hamstring. 4+/5 TA, gastroc (limited by patient's effort and exam.). Diffuse decrease sensation at the level of the ankle distally. Otherwise, sensation light touch intact. 1+ DP pulse. Radiographs of the left hip obtained 12/22/2020 were reviewed, demonstrating severe, end-stage osteoarthritis with joint space destruction, subchondral sclerosis, cystic changes and extensive osteophytosis. He may have some degree of femoral head collapse AVN. MRI of the left hip obtained 12/29/2020 was also reviewed, demonstrating a hypointense line extending from the mid transcervical region extending to the lesser trochanter concerning for a stress fracture. He also has mild to moderate trochanteric bursitis, degenerative labral tears and redemonstration of his severe osteoarthritis. Assessment and plan: 60-year-old male with history of type 2 diabetes, TBI, right diabetic foot wound status post right below-knee amputation 12/29/[address] Arzate, with acute on chronic left hip pain. MRI concerning for a stress fracture in the femoral neck extending to the lesser trochanter in setting of the patient's severe osteoarthritis and moderate trochanteric bursitis. We recommend limiting weightbearing left lower extremity and maintaining nonweightbearing. No acuteorthopedic intervention at this time. We will discuss these findings with our arthroplasty colleagues on Sunday for evaluation and consideration of a total hip arthroplasty. D/w Dr. James Castle MD 01/01/21 10:08 * Stanley Tillman MD - 01/01/2021 0716 EDT Medicine Progress Note Service Date: 01/01/2021 Admit Date: 12/22/2020 19:00 Reason for Admission: 60 y.o. male admitted with a chief complaint of left leg pain and now with a principal diagnosis of management of severe diabetic right foot wound. 24 Hour Events: - NAEO - PICC placed yesterday Subjective/Objective Subjective Mr. Scott reports that he is doing okay today. He still reports hip pain but is also doing better with positional changes with the nursing team and reports that he slept hard last night. His right leg pain has improved with gabapentin and he endorses only mild pressure this morning. He has been eating well, is making good urine, and is having bowel movements. He otherwise denies fevers, chills, chest pain, SOB, nausea, vomiting, or leg pain. We talked about discharge prospects and the PT evalthat is ordered and he endorses that he would prefer to be pushed at acute rehab over [facility], but we also discussed that his hip pain will likely limit his ability to participate in intense rehabilitation. Review of Systems A ten point review of systems was performed and was negative except for pertinent positives noted in the HPI Objective Vital Signs Temp: [36.6 ??C (97.9 ??F)-37.5 ??C (99.5 ??F)] , Heart Rate: [92 BPM-93 BPM] , Resp: [18-24] , BP:(121-144)/(72-88) , SpO2: [94 %-96 %] Physical Exam General appearance: Cooperative, alert Lungs: clear to auscultation bilaterally, non labored breathing Heart: regular rate and rhythm, S1, S2 normal Abdomen: soft, non-tender; bowel sounds normal; no masses, no organomegaly Neurologic: AAO to person and place Extremities: extremities warm, atraumatic, no cyanosis or edema. L hip tender to palpation. R stumpelevated on pillow and wrapped Pulses: LLE DP's palpable, RLE not assessed Skin: Skin color, temperature, turgor normal. Is PICC or central line present? Yes, it is still present. The line is still required. Medications - WORK[employer]' COMPENSATION MAGISTRATE Levothyroxine 112mcg daily - WORKERS[employer] COMPENSATION MAGISTRATE Eliquis 5mg BID (holding prior to surgery) - WORK[employer] COMPENSATION MAGISTRATE Metformin (holding) - WORKERS[employer] COMPENSATION MAGISTRATE Sitagliptin (holding) - WORKERS[employer] COMPENSATION MAGISTRATE Tramadol 50mg BID PRN - WORK[employer] COMPENSATION MAGISTRATE Insulin glargine 45 units sub q nightly - WORK[employer] COMPENSATION MAGISTRATE Insulin lispro 10 units sub q with meals (holding) - [employer] COMPENSATION MAGISTRATE Atorvastatin 20mg daily Labs Recent Labs 12/30/2061812/31/20 0646 01/01/21 0612 WBC 11.80* 8.45 9.61 RBC 2.99* 3.21* 3.17* HGB 9.4* 9.8* 9.6* HCT 27.4* 29.0* 28.9* MCV 92 90 91 MCH 31.4 30.5 30.3 MCHC 34.3 33.8 33.2 PLT 333 315 375 Recent Labs 12/30/2061812/31/20 0646 01/01/21 0612 NA 134* 136 135* K 4.7 4.3 4.3 CL 99 99 98 CO2 28 29 29 BUN 13 11 11 CREATININE 0.74 0.50* 0.51* Glucose: 165/214/282/230/126/99 Hemoglobin A1C: 13.9 Lab Results Component Value Date CRP 219.2 (H) 12/27/2020 CRPP 11.7 (H) 03/09/201612/23 Bone Biopsy: Preliminary result: moderate Strep agalactiae (Group B) 12/23 Blood Cultures: Preliminary result: Anaerobic bottle positive for MSSA at 18 hours. Aerobic positive for MSSA at 23 hours 12/24 Blood Cultures: NGTD Imaging X-ray Left Hip FINDINGS / IMPRESSION: Left hip AP supine and cross table lateral views: There is severe osteoarthrosis involving the left hip joint. Milder degenerative changes noted in the visualized lower most portion of the incompletely imaged left SI joint and along the pubic symphysis. Vasectomy surgical clips are partially imaged. The bones appear diffusely demineralized. The severity the osteopenia reduces radiographic sensitivity for the detection of a subtle or nondisplaced acute fracture if present. Also, with overlying soft tissues obscuring the region of the interest on the crosstable lateral view including the femoralhead and neck. There is a high degree of clinical concern for a radiographically occult fracture CT imaging can beobtained for further assessment. CT Left Hip w/o contrast FINDINGS / IMPRESSION: * No evidence of acute fracture or dislocation. * There are however end-stage degenerative changes in the left hip with severe joint space narrowing resulting in [id number] as well as subchondral sclerosis and cyst formation in addition to exuberant osteophytosis. * Degrees of the normal except at the lateral aspect of the femoral head neck junction which while nonspecific suggest perhaps an underlying element of CAM- type femoroacetabular impingement was related to the severe osteoarthrosis. * Minimal remodeling in the weightbearing portion of the left femoral head without evidence of discrete flattening or collapse of the articular surface to suggest avascular necrosis. * Incidentally noted couple of elongated regions of intramuscular fat along the proximal aspect of the rectus femoris muscle with a couple of tiny foci of calcification, likely sequela from prior muscle injury with fat replacement, the possibility of intramuscular lipoma is less likely. X-Ray Right Foot FINDINGS / IMPRESSION: There are transmetatarsal amputations at the level of the proximal aspects of the first through fifth metatarsals. Plantar skin and subcutaneous soft tissue ulcer at about the level of the transmetatarsal amputations. There is prominent soft tissue swelling surrounding the ulcer and extending throughout the foot.Osseous irregularity at the amputation margins may be postsurgical. If there is a high degree of clinical concern for osteomyelitis then MR imaging can be obtained to further evaluate for this possibility. Degenerative joint changes and calcaneal enthesopathic changes are similar compared to the prior study. Atherosclerotic arterial calcification is again noted. 12/24 TTE Severely dilated RV, reduced RV function. LFEF 65%. Atria normal size. No regurg or stenosis seen. 12/28 MRI Hip w/o contrast IMPRESSION: 1. Feathery pattern of muscle edema with areas of mild enhancement involving the adductor musculature, visualized portions of the proximal vastus musculature, and gluteus medius and minimus muscles about the evaluated left hip. Imaging features are nonspecific and can be seen with muscle injury, inflammation, or diabetic muscle ischemia. Infectious myositis can be considered in the appropriate clinical context. ?? 2. Indistinct band-shaped area of altered signal and enhancement traversing the femoral neck and extending to the lesser trochanter concerning for stress reaction or impending insufficiency fracture in the setting of severe osteopenia. Please correlate. ?? 3. Severe left hip joint osteoarthrosis with extensive degenerative tearing of the acetabular labrum. ?? 4. Trochanteric bursitis with small volume fluid distending the right trochanteric bursa. ?? 5. Moderate right hip joint osteoarthrosis and mild right trochanteric bursitis demonstrated on thewide [id number] coronal images. Assessment/Plan Assessment Jeff Scott is a 60 y.o. 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 Sympoms improved with dilaudid and antibiosis. Seen by ortho and underwent right BTK amputation on 12/29 for infection control. Surgical course was uncomplicated and appears to be recovering well. Per ortho he is ready for discharge from their end when PT has evaluated. They will discuss potential for total hip arthroplasty on Sunday and will follow up with recommendations but have no acute interventions planned at this time. Will needPT consult to assess capabilities for [facility] vs acute rehab. PICC placed yesterday. He is otherwise hemodynamically stable at this time. Blood sugars were elevated to the 200s throughout the day yesterday and today. Will increase bolus insulin to 12 units with meals and continue to monitor. Plan Sepsis due to MSSA Bacteremia Osteomyelitis of R foot - s/p debridement by orthopedics in the ED, wound cultures obtained - preliminary read: moderate Strep agalactiae (Group B) - 12/23 blood cultures: preliminary read: MSSA in anaerobic cultures and aerobic cultures - TTE on 12/25 -> no evidence of IE but poor imaging - ID consulted, appreciate recs - f/u 12/24 blood cultures -> no growth to date - continue cefazolin through 01/12 now that he is s/p BKA with negative cultures - PICC placed 12/31 - CBC daily - Wound management by nursing staff - Ortho consulted, appreciate recs - s/p BTK amputation on 12/29 - okay to restart DVT ppx - Non-weight bearing RLE - Okay for discharge after PT eval - pillow under distal end of stump NOT knee. Goal: keep knee completely straight - Dressing to remain in place for 2-3 weeks post-op - Gabapentin 100mg TID for neuropathic pain in the stump LLE/Hip Pain - poorly controlled on current regimen - Tylenol 1000 q6 PRN, WORK[employer] COMPENSATION MAGISTRATE tramadol - Robaxin 750mg q4 - lidocaine patch daily - Schedule Dilaudid PO 2mg q4hrs - Recommended icing hip for bursitis - MRI hip showing osteoarthritis, torn labrum,trochaneteric bursitis and possible myositis of nonspecific etiology, plan to ask ortho about this - no acute plans from ortho regarding osteoarthritis management - follow up on Sunday regarding arthroplasty plans from ortho - Physical Therapy as able Discussed with Dr Castle in ortho who saw him today and thinks it is related to his severe hip OA.Will discuss with arthroplasty colleagues Sunday for consideration of ELVIN but not ideal timing given recent amputation of his other leg. Type 2 Diabetes - WORK[employer]' COMPENSATION MAGISTRATE regimen of 45 units glargine daily with 10 units lispro with meals - Continue 45 units glargine nightly - Insulin aspart 10 units with meals - Increase aspart to 12 units with meals - Target BG 140-180 - Hemaglobin A1C 13.9 - 500cc bolus LR as needed to replete fluid status euvolemic today - Nutrition consulted for dietary recs and patient education, appreciate recs - Vit C 500mg daily - Vit D3 2000 units daily - BMP daily Psychological Well-Being -Med Psych consult active, appreciate recs - Have seen patient and will continue to follow Non active: Ketoacidosis - resolved - BMP daily Deep Vein Thrombosis of the left lower extremity - Diagnosed in August 2020 - [employer]' COMPENSATION MAGISTRATE Eliquis 5mg BID Hypothyroidism - continue WORK[employer] COMPENSATION MAGISTRATE levothyroxine VTE Prophylaxis - WORK[employer]' COMPENSATION MAGISTRATE Eliquis 5mg BID Discharge Plan Pending clinical improvement, will d/c to acute rehab vs [facility]. Case management is working on placement at this time. Will likely benefit from acute rehab post-op and he would prefer acute rehab over [facility]. Waiting for PT eval to proceed with discharge planning. Consults Infectious Disease, Ortho, Med Psych, and Nutrition Uri Miller, MS3 01/01/2021 11:46 I was present with the medical student for the history, exam, and medical decision making documented. I have edited the medical student note as appropriate. Desiree Marcano DO 01/01/2021 13:00 ATTENDING ATTESTATION: Date of service: 01/01/2021 I have interviewed and examined the patient and discussed with the housestaff. I agree with and edited (in blue) the findings and plan of care as documented in the note above. Stanley Tillman MD Internal Medicine Hospitalist Service 01/01/2021 15:16 * Chago Leon RN - 12/31/2020 1254 EDT Vascular Access Progress Note Diagnosis: Active Hospital Problems Diagnosis ??? *Diabetic foot infection (HCC-CMS) (HCC) ??? Ketoacidosis ??? Deep vein thrombosis (DVT) of proximal vein of left lower extremity, unspecified chronicity (HCC-CMS) (HCC) ??? Type 2 diabetes mellitus without complication, with long-term current use of insulin (HCC-CMS) (HCC) ??? 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 (HCC-CMS) ([facility]) Reason for PICC line: Antibiotics Recommendations: Single PICC/Central Line/Pacer history (Review documents, ask patient): none found. To review with pt at the bedside. Labs: Lab Results Component Value Date PROTIME 14.9 (H) 12/28/2020 INR 1.3 (H) 12/28/2020 Lab Results Component Value Date WBC 8.45 12/31/2020 Lab Results Component Value Date PLT 315 12/31/2020 Lab Results Component Value Date CALCGFR 119 12/31/2020 Blood Cultures (negative at 48, 72 hour for yeast?) Yes Contraindications to PICC Insertion (presence of any requires comment): Hx of thrombus-look for Doppler studies? positive DVT in Left lower extremity. pt on lovenox Q12hrs. Unavailable arm (stroke, injury, surgical site, lymphedema, or fistula)? No Renal compromise needs attending or Nephrology order-Order needed? No Devices in the SVC? No Crutches or Walker? No IVC Filter or Pacer? No Temp >38.5 in 24hrs? No Existing lines? PIV Patient education completed? to be done at the bedside by PICC RN. CHAGO LEON RN * Seeker, MD Js - 12/31/2020 1225 EDT Orthopaedic Progress Note PROBLEM: Right transtibial amputation 12/29 24 HOUR EVENTS: No acute events overnight glucose 165-321 Some worsening phantom pain SUBJECTIVE: Patient states that he is having some worsening pain in his right dorsal foot. He denies fever, chills, nausea, vomiting or shortness of breath. His pain in his left calf is overall controlled at present. He has not mobilized. Denies other issues. OBJECTIVE: Gen: NAD, AOx3 RLE: Dressing C/D/I no strikethrough on residual limb splinting Palpable femoral pulse Able to maintain straight leg raise, 5/5 iliopsoas Palpable femoral pulse Labs: WBC/Hgb/Hct/Plts: 8.45/9.8/29.0/315 (12/31 645) Na/K/Cl/CO2: 136/4.3/99/29 (12/31 645) BUN/Cr/glu/ALT/AST/amyl/lip: 11/0.50/204/--/--/--/-- (12/31 645) PT/INR/PTT: 14.9/1.3/37 (12/28 1402) ASSESSMENT/PLAN: Jeff Scott 60 y.o. male s/p from above. Pending mobilization, and antibiotics ?? Pain control - multimodal, gabapentin DVT Prophylaxis:??Ok from a orthopaedic standpoint Abx: Ancef x 2 weeks per ID which will end January 12 Activity as tolerated Weight Bearing: ?? Nonweightbearing right residual limb, weightbearing as tolerated left lower extremity Diet:?? Consistent carb PT eval Js Meza MD 12/31/2020 12:26 * Stanley Tillman MD - 12/31/2020 0752 EDT Medicine Progress Note Service Date: 12/31/2020 Admit Date: 12/22/2020 19:00 Reason for Admission: 60 y.o. male admitted with a chief complaint of left leg pain and now with a principal diagnosis of management of severe diabetic right foot wound. 24 Hour Events: - inclusion paraeducator visit Subjective/Objective Subjective Mr. Scott reports he is doing okay this morning. His biggest concern today is poorly managed pain. He reports that his block has worn off in his right leg and he is feeling a burning pain around the site of amputation. He also states that his hip pain is consistently present and painful and he doesn't feel like this pain is being treated adequately. He does recognize that he has reported poor hippain control throughout his stay but states that his pain right now is unlike any other episode he has had and he would like it to be treated adequately. He was otherwise appreciative of our continued morning conversation and the treatment he is receiving from the medical team. He otherwise denies chest pain, SOB, fevers, chills, nausea, or vomiting. Review of Systems A ten point review of systems was performed and was negative except for pertinent positives noted in the HPI Objective Vital Signs Temp: [36.5 ??C (97.7 ??F)-37.2 ??C (99 ??F)] , Heart Rate: --, Resp: [16] , BP: (135-139)/(68-77) , SpO2: [94 %-96 %] Physical Exam General appearance: Cooperative, alert Lungs: clear to auscultation bilaterally, non labored breathing Heart: regular rate and rhythm, S1, S2 normal Abdomen: soft, non-tender; bowel sounds normal; no masses, no organomegaly Neurologic: AAO to person and place Extremities: extremities warm, atraumatic, no cyanosis or edema. L hip tender to palpation. R stumpelevated on pillow and wrapped Pulses: LLE DP's palpable, RLE not assessed Skin: Skin color, temperature, turgor normal. Is PICC or central line present? No, PICC/Central line not present. Medications - [employer] COMPENSATION MAGISTRATE Levothyroxine 112mcg daily - [employer] COMPENSATION MAGISTRATE Eliquis 5mg BID (holding prior to surgery) - [employer] MAGISTRATE Metformin (holding) - [employer] COMPENS[employer] MAGISTRATE Sitagliptin (holding) - [employer] COMPENSATION MAGISTRATE Tramadol 50mg BID PRN - [employer]ENS[employer] MAGISTRATE Insulin glargine 45 units sub q nightly - [employer]ENS[employer] MAGISTRATE Insulin lispro 10 units sub q with meals (holding) - [employer] MAGISTRATE Atorvastatin 20mg daily Labs Recent Labs 12/29/2072712/30/2061812/31/20 0646 WBC 8.65 11.80* 8.45 RBC 3.64* 2.99* 3.21* HGB 10.8* 9.4* 9.8* HCT 32.3* 27.4* 29.0* MCV 89 92 90 MCH 29.7 31.4 30.5 MCHC 33.4 34.3 33.8 PLT 319 333 315 Recent Labs 12/29/2072712/30/2061812/31/20 0646 NA 136 134* 136 K 4.0 4.7 4.3 CL 100 99 99 CO2 29 28 29 BUN 7* 13 11 CREATININE 0.53* 0.74 0.50* Glucose: 90/83/96/260/224 Hemoglobin A1C: 13.9 Lab Results Component Value Date CRP 219.2 (H) 12/27/2020 CRPP 11.7 (H) 03/09/201612/23 Bone Biopsy: Preliminary result: moderate Strep agalactiae (Group B) 12/23 Blood Cultures: Preliminary result: Anaerobic bottle positive for MSSA at 18 hours. Aerobic positive for MSSA at 23 hours 12/24 Blood Cultures: NGTD Imaging X-ray Left Hip FINDINGS / IMPRESSION: Left hip AP supine and cross table lateral views: There is severe osteoarthrosis involving the left hip joint. Milder degenerative changes noted in the visualized lower most portion of the incompletely imaged left SI joint and along the pubic symphysis. Vasectomy surgical clips are partially imaged. The bones appear diffusely demineralized. The severity the osteopenia reduces radiographic sensitivity for the detection of a subtle or nondisplaced acute fracture if present. Also, with overlying soft tissues obscuring the region of the interest on the crosstable lateral view including the femoralhead and neck. There is a high degree of clinical concern for a radiographically occult fracture CT imaging can beobtained for further assessment. CT Left Hip w/o contrast FINDINGS / IMPRESSION: * No evidence of acute fracture or dislocation. * There are however end-stage degenerative changes in the left hip with severe joint space narrowing resulting in [id number] as well as subchondral sclerosis and cyst formation in addition to exuberant osteophytosis. * Degrees of the normal except at the lateral aspect of the femoral head neck junction which while nonspecific suggest perhaps an underlying element of CAM- type femoroacetabular impingement was related to the severe osteoarthrosis. * Minimal remodeling in the weightbearing portion of the left femoral head without evidence of discrete flattening or collapse of the articular surface to suggest avascular necrosis. * Incidentally noted couple of elongated regions of intramuscular fat along the proximal aspect of the rectus femoris muscle with a couple of tiny foci of calcification, likely sequela from prior muscle injury with fat replacement, the possibility of intramuscular lipoma is less likely. X-Ray Right Foot FINDINGS / IMPRESSION: There are transmetatarsal amputations at the level of the proximal aspects of the first through fifth metatarsals. Plantar skin and subcutaneous soft tissue ulcer at about the level of the transmetatarsal amputations. There is prominent soft tissue swelling surrounding the ulcer and extending throughout the foot.Osseous irregularity at the amputation margins may be postsurgical. If there is a high degree of clinical concern for osteomyelitis then MR imaging can be obtained to further evaluate for this possibility. Degenerative joint changes and calcaneal enthesopathic changes are similar compared to the prior study. Atherosclerotic arterial calcification is again noted. 12/24 TTE Severely dilated RV, reduced RV function. LFEF 65%. Atria normal size. No regurg or stenosis seen. 12/28 MRI Hip w/o contrast IMPRESSION: 1. Feathery pattern of muscle edema with areas of mild enhancement involving the adductor musculature, visualized portions of the proximal vastus musculature, and gluteus medius and minimus muscles about the evaluated left hip. Imaging features are nonspecific and can be seen with muscle injury, inflammation, or diabetic muscle ischemia. Infectious myositis can be considered in the appropriate clinical context. ?? 2. Indistinct band-shaped area of altered signal and enhancement traversing the femoral neck and extending to the lesser trochanter concerning for stress reaction or impending insufficiency fracture in the setting of severe osteopenia. Please correlate. ?? 3. Severe left hip joint osteoarthrosis with extensive degenerative tearing of the acetabular labrum. ?? 4. Trochanteric bursitis with small volume fluid distending the right trochanteric bursa. ?? 5. Moderate right hip joint osteoarthrosis and mild right trochanteric bursitis demonstrated on thewide [id number] coronal images. Assessment/Plan Assessment Jeff Scott is a 60 y.o. 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 Sympoms improved with dilaudid and antibiosis. Seen by ortho and underwent right BTK amputation on 12/29 for infection control. Surgical course was uncomplicated and appears to be recovering well. Per ortho today he is ready for discharge from their end when PT has evaluated. No plans for management of left hip osteomyelitis at this time. They are okay with restarting his [employer] MAGISTRATE Eliquis as they have no plans for further intervention. Willneed PT consult to assess, aiming for acute rehab after discharge. Will likely need PICC placement for IV cefazolin through 01/12. Will order for placement today so it is in place for discharge. He is otherwise hemodynamically stable at this time. Blood sugars were elevated to the 200s throughout the day yesterday. Will monitor levels today and consider increasing basal insulin if glucose does not downtrend. Case management is working on placement at this time. Will likely benefit from acute rehab post-op.Consult PT for recommendations regarding acute rehab placement. Plan Sepsis due to MSSA Bacteremia Osteomyelitis of R foot - s/p debridement by orthopedics in the ED, wound cultures obtained - preliminary read: moderate Strep agalactiae (Group B) - 12/23 blood cultures: preliminary read: MSSA in anaerobic cultures and aerobic cultures - TTE on 12/25 -> no evidence of IE but poor imaging - ID consulted, appreciate recs - f/u 12/24 blood cultures -> no growth to date - continue cefazolin through 01/12 now that he is s/p BKA with negative cultures - order PICC placement for today - CBC daily - Wound management by nursing staff - Ortho consulted, appreciate recs - s/p BTK amputation on 12/29 - okay to restart DVT ppx - Non-weight bearing RLE - Okay for discharge after PT eval - pillow under distal end of stump NOT knee. Goal: keep knee completely straight - start gabapentin 100mg BID for neuropathic pain in the stump LLE/Hip Pain - Well controlled on current regimen - Tylenol 1000 q6 PRN, [employer] COMPENSATION MAGISTRATE tramadol - Robaxin 750mg q4 - lidocaine patch daily - Schedule Dilaudid PO 2mg q4hrs - Recommended icing hip for bursitis - MRI hip showing osteoarthritis, torn labrum,trochaneteric bursitis and possible myositis of nonspecific etiology, plan to ask ortho about this - no acute plans from ortho regarding osteoarthritis management - Physical Therapy as able Type 2 Diabetes - [employer] COMPENSATION MAGISTRATE regimen of 45 units glargine daily with 10 units lispro with meals - Continue 45 units glargine nightly - Insulin aspart 10 units with meals - Target BG 140-180 - Hemaglobin A1C 13.9 - 500cc bolus LR as needed to replete fluid status euvolemic today - Nutrition consulted for dietary recs and patient education, appreciate recs - Vit C 500mg daily - Vit D3 2000 units daily - BMP daily Psychological Well-Being -Med Psych consult active, appreciate recs - Have seen patient and will continue to follow Non active: Ketoacidosis - resolved - BMP daily Deep Vein Thrombosis of the left lower extremity - Diagnosed in August 2020 - D/c therapeutic lovenox and restart [employer] MAGISTRATE Eliquis 5mg BID per ortho Hypothyroidism - continue [employer] MAGISTRATE levothyroxine VTE Prophylaxis - D/C'd [employer] MAGISTRATE Eliquis due to surgery - D/c therapeutic lovenox and restart [employer] MAGISTRATE Eliquis 5mg BID per ortho Discharge Plan Pending clinical improvement, will d/c to acute rehab vs [facility]. Case management aware and working on placement. Consults Infectious Disease, Ortho, Med Psych, and Nutrition Uri Miller, MS3 12/31/2020 7:52 I was present with the medical student for the history, exam, and medical decision making documented. I have edited the medical student note as appropriate. Desiree Marcano DO 12/31/2020 14:03 ATTENDING ATTESTATION: Date of service: 12/31/2020 I have interviewed and examined the patient and discussed with the housestaff. I agree with and edited (in blue) the findings and plan of care as documented in the note above. Stanley Tillman MD Internal Medicine Hospitalist Service 12/31/2020 16:05 \ * Linda Wall MD - 12/30/2020 1518 EDT INFECTIOUS DISEASES CONSULT SERVICE PROGRESS NOTE CHIEF COMPLAINT/ID: 60 yo male patient with diabetes mellitus and severe left hip pain with findingof right diabetic foot infection with osteomyelitis and MSSA bacteremia. EVENTS: 12/29/20: right BKA (no purulence noted in the leg) Subjective: on his way down to MRI and then plan for the OR this afternoon REVIEW OF SYSTEMS: 10-point review of systems is negative except as mentioned above Please refer to the initial ID Consult Note obtained on 12/23/20 for Medical/Family/Social History.I have reviewed this information and there is no significant change from prior. Antibiotics: Cefazolin 2 gm IV Q 8 hours 12/24 - ongoing PRIOR: Cefepime 12/23 - Ceftriaxone 12/23 - Vancomycin 12/23 - Metronidazole 12/23 - PHYSICAL EXAM: VS: BP 135/68 (BP Cuff Location: Right arm, BP Patient Position: Semi fowlers) Pulse 91 Temp 37.2 ??C (99 ??F) (Oral) Resp 16 Ht 185.4 cm (73) Wt (!) 115.7 kg (255 lb 1.2 oz) SpO2 94% BMI 33.65 kg/m?? GENL: pleasant, NAD EENT: sclerae anicteric, moist mucous membranes CV: RRR with possibly a soft systolic murmur LUNGS: unlabored NECK: supple Neuro: awake, alert Derm: no disseminated rash LABORATORY: Reviewed in detail in [facility]. WBC/RBC/HGB/HCT/PLT/ANC11.80/2.99/9.4/27.4/333/-- (12/30 0619) Cr 0.74 MICROBIOLOGY DATA: Reviewed in detail in [facility]. Pertinent for: 12/24/20 blood cx: NGTD 12/23/20 blood cx: 2/4 bottles with MSSA 12/23/20 bone cx: mod group B strep, few MSSA, few mixed gram positives IMAGING DATA: I have independently reviewed the available imaging. 12/24/20 TTE: ??? Right??Ventricle: The right ventricular cavity was severely dilated in size. Right ventricular systolic function was severely reduced. ??? Left??Ventricle: Left ventricular systolic function was normal with an ejection fraction of 60-65%. Left ventricular wall motion was normal; there were no regional wall motion abnormalities. ??? Suboptimal image quality but not obvious valvular vegetations. This does not rule IE given limited sensitivity specially with poor images. 12/22 right foot radiographs: There are transmetatarsal amputations at the level of the proximal aspects of the first through fifth metatarsals. Plantar skin and subcutaneous soft tissue ulcer at about the level of the transmetatarsal amputations. There is prominent soft tissue swelling surrounding the ulcer and extending throughout the foot.Osseous irregularity at the amputation margins may be postsurgical. If there is a high degree of clinical concern for osteomyelitis then MR imaging can be obtained to further evaluate for this possibility. Degenerative joint changes and calcaneal enthesopathic changes are similar compared to the prior study. Atherosclerotic arterial calcification is again noted. ?? 12/[address] w/o contrast: * ??No evidence of acute fracture or dislocation. * ??There are however end-stage degenerative changes in the left hip with severe joint space narrowing resulting in [id number] as well as subchondral sclerosis and cyst formation in addition to exuberant osteophytosis. * ??Degrees of the normal except at the lateral aspect of the femoral head neck junction which while nonspecific suggest perhaps an underlying element of CAM- type femoroacetabular impingement was related to the severe osteoarthrosis. * ??Minimal remodeling in the weightbearing portion of the left femoral head without evidence of discrete flattening or collapse of the articular surface to suggest avascular necrosis. * ??Incidentally noted couple of elongated regions of intramuscular fat along the proximal aspect of the rectus femoris muscle with a couple of tiny foci of calcification, likely sequela from prior muscle injury with fat replacement, the possibility of intramuscular lipoma is less likely. * ??There is osteopenia. * ??Note made of vasectomy clips. A tiny focus of air in the subcutaneous soft tissues of the left inguinal region likely relates to prior injection. * ??Small fat-containing inguinal hernias. ASSESSMENT/RECOMMENDATIONS: 60-year-old male patient with a remote history of craniopharyngeal resection back in 2006, diabetesmellitus, right-sided diabetic foot infections status post amputations in 2019, presents with rightlower extremity including hip pain with finding of right-sided diabetic foot infection and osteomyelitis. Bone culture reveals MSSA and some strep species. The patient was appropriately narrowed to cefazolin. He underwent right sided BKA on 12/29/20 offering surgical cure. Follow up blood cultures reassuring. TTE without obvious vegetations. -continue cefazolin x 2 weeks (from time of surgery, which brings us to Jan 12) Please reach out by cortext if additional questions arise. Linda Wall MD, MPH Infectious Disease * Desiree Simon, RD - 12/30/2020 1233 EDT Nutrition Assessment Note: Reassessment Reason for Visit: Follow Up BACKGROUND DATA Subjective: Patient resting during RD visit but easily wakes and engages. He reports good appetite/intake of meals. Likes the food and is tolerating supplemental shakes. Reports last BM to be yesterday. Current Nutrition Orders: Rx Diet: Consistent Carbohydrate Supplements: Sugar-Free Mighty Shakes House-[employer] automatic meal trays Physical Findings: Digestive Systems: Last BM 12/29 Skin: BSS 16, diabetic ulcer s/p right BKA with ortho yesterday Edema: none noted Anthropometrics: Height: 185.4 cm (73) Weight: 115.7 kg BMI: 35.7 (adjusted for R BKA) IBW: 79.9 kg Adjusted Weight: 89 kg Wt Readings from Last 6 Encounters: 12/29/20 (!) 115.7 kg (255 lb 1.2 oz) 11/04/20 (!) 115.8 kg (255 lb 6.4 oz) 08/19/20 (!) 113.4 kg (250 lb) 08/12/20 (!) 106.6 kg (235 lb) 05/20/20 (!) 120.7 kg (266 lb) 10/03/19 (!) 110.1 kg (242 lb 11.6 oz) Current Facility-Administered Medications Medication Route Frequency ??? acetaminophen (TYLENOL) tablet 1,000 mg oral Q6H ??? ascorbic acid (vitamin C) (VITAMIN C) tablet 500 mg oral DAILY ??? atorvastatin (LIPITOR) tablet 20 mg oral DAILY ??? ceFAZolin in dextrose (iso-os) piggyback 2 g/100 mL intravenous Q8H ??? cholecalciferol (Vitamin D3) tablet 2,000 Units oral DAILY ??? dextrose 50 % solution 12.5 g intravenous PRN ??? diclofenac sodium gel 4 g topical QID ??? enoxaparin (LOVENOX) injection 120 mg subcutaneous Q12H ??? glucagon injection 1 mg intramuscular PRN ??? HYDROmorphone (DILAUDID) tablet 2 mg oral Q4H ??? influenza vaccine quad (PF) (6 mos+) IM injection-syringe 0.5 mL intramuscular ONCE ??? insulin aspart U-100 (NOVOLOG FLEXPEN) injection 10 Units subcutaneous TID WC ??? insulin aspart U-100 (NOVOLOG FLEXPEN) injection subcutaneous TID WC ??? insulin aspart U-100 (NOVOLOG FLEXPEN) injection subcutaneous QHS ??? insulin glargine (LANTUS SOLOSTAR/SEMGLEE) injection pen 45 Units subcutaneous QHS ??? levothyroxine (SYNTHROID) tablet 112 mcg oral DAILY BEFORE BREAKFAST ??? lidocaine (PF) 10 mg/mL (1 %) injection 2 mg intradermal PRN ??? lidocaine (PF) 10 mg/mL (1 %) injection 2 mg intradermal PRN ??? lidocaine 5 % (LIDODERM) patch 1 Patch transdermal DAILY ??? methocarbamoL (ROBAXIN) tablet 750 mg oral QID Pertinent Labs: Lab Results Component Value Date/Time NA 134 (L) 12/30/2020 06:19 K 4.7 12/30/2020 06:19 CO2 28 12/30/2020 06:19 CL 99 12/30/2020 06:19 BUN 13 12/30/2020 06:19 CREATININE 0.74 12/30/2020 06:19 GLUCOSEPOC 240 (H) 12/30/2020 12:28 CALCIUM 8.1 (L) 12/30/2020 06:19 PHOS 3.8 10/04/2019 13:02 MG 2.0 10/04/2019 13:02 Lab Results Component Value Date/Time HGBA1C 13.9 (H) 12/23/2020 07:02 GLUCOSEPOC 240 (H) 12/30/2020 12:28 GLUCOSEPOC 224 (H) 12/30/2020 08:05 GLUCOSEPOC 96 12/29/2020 21:01 GLUCOSEPOC 83 12/29/2020 18:28 GLUCOSEPOC 93 12/29/2020 17:02 Estimated Nutrition Needs: 23-25 kcal/kg (using 89 kg) = 9379-7139 kcals/day 1.2 g/kg protein (using 89 kg) = 110 g protein/day 30 mL/kg fluid (using 89 kg) = 2670 mL fluid/day or per recewelina Estimated Nutrition Intake: 75-100% of meals recorded ASSESSMENT: Patient is tolerating current diet and receiving supplemental sugar-free mighty shakes (200 kcal, 7g protein) TID with meals. Meals are house-select and include adequate protein. Getting supplemental vitamin C to promote wound healing; vitamin D3 added to meds to help replete deficiency. Moving bowels. Patient may benefit from DM diet-education prior to discharge, will continue to follow. Nutrition Risk Level: Moderate (2) MEDICAL NUTRITION THERAPY - UPDATED PLAN Continue current diet order with supplemental shakes TID -House Select automatic meal trays for now Ongoing monitor of PO intake, labs, blood sugar, I/Os, weight trends, skin and plan of care. DESIREE SIMON RD, CD (Call PAS or use Intelliweb to page RD covering this unit) * Seeker, MD Js - 12/30/2020 0920 EDT Orthopaedic Progress Note PROBLEM: Righttranstibial amputation 12/29 24 HOUR EVENTS: Uncomplicated right below the knee amputation Hgb 9.4 Pain well controlled overnight MRI of left hip without effusion, severe degenerative changes, abductor myositi,s trochanteric bursitis SUBJECTIVE: Patient states he is doing well his morning. He is very thankful for the care he received from the medical and surgical teams and expresses gratitude. He has not mobilized. Denies fever, chills, nausea, vomiting, shortness of breath. OBJECTIVE: Gen: NAD, AOx3 RLE: Dressing C/D/I no strikethrough on residual limb plaster able to maintain straight leg raise, 5/5 iliopsoas Palpable femoral pulse Labs: WBC/Hgb/Hct/Plts: 11.80/9.4/27.4/333 (12/30 618) Na/K/Cl/CO2: 134/4.7/99/28 (12/30 618) BUN/Cr/glu/ALT/AST/amyl/lip: 13/0.74/260/--/--/--/-- (12/30 618) PT/INR/PTT: 14.9/1.3/37 (12/28 1402) ASSESSMENT/PLAN: Jeff Scott 60 y.o. male s/p from above. Pending mobilization, and antibiotics Pain control - multimodal DVT Prophylaxis: Ok from a orthopaedic standpoint Abx: Ancef x 2 weeks per ID Activity as tolerated Weight Bearing: Nonweightbearing right residual limb, weightbearing as tolerated left lower extremity Diet: Consistent carb PT eval Dispo planning- Js Meza MD 12/30/2020 9:27 * Stanley Tillman MD - 12/30/2020 0729 EDT Medicine Progress Note Service Date: 12/30/2020 Admit Date: 12/22/2020 19:00 Reason for Admission: 60 y.o. male admitted with a chief complaint of left leg pain and now with a principal diagnosis of management of severe diabetic right foot wound. 24 Hour Events: - MRI yesterday - BTK amputation with ortho yesterday - seen by ID -> continue cafazolin through 01/12 per plan Subjective/Objective Subjective Mr. Scott reports he is doing well this morning. Reports that his post-op course was unremarkable since yesterday. He was able to eat a good dinner after the procedure and tolerate without nausea or vomiting. His pain is stable but still present. He reports less pain than expected in his foot but it is still present in his hip. He was not aware that his Dilaudid was ordered PRN. We discussed thisand he would prefer it to be scheduled given his difficulties with short term memory at baseline. In regards to the procedure, he states that the weight of everything that happened has not really setin yet. Encouraged use of hospital resources (Med Psych, Spiritual Care, Medicine care team) while inpatient as he needs and he was appreciative. He otherwise denies chest pain, SOB, fevers, chills, nausea, or vomiting. Review of Systems A ten point review of systems was performed and was negative except for pertinent positives noted in the HPI Objective Vital Signs Temp: [36.5 ??C (97.7 ??F)-38 ??C (100.4 ??F)] , Heart Rate: [77 BPM-91 BPM] , Resp: [15-22] , BP: (120-153)/(49-83) , SpO2: [92 %-99 %] Physical Exam General appearance: Cooperative, alert Lungs: clear to auscultation bilaterally, non labored breathing Heart: regular rate and rhythm, S1, S2 normal Abdomen: soft, non-tender; bowel sounds normal; no masses, no organomegaly Neurologic: AAO to person and place Extremities: extremities warm, atraumatic, no cyanosis or edema. L hip tender to palpation. R stumpelevated on pillow and wrapped Pulses: LLE DP's palpable, RLE not assessed Skin: Skin color, temperature, turgor normal. Is PICC or central line present? No, PICC/Central line not present. Medications - WORKERS' COMPENSATION MAGISTRATE Levothyroxine 112mcg daily - WORKERS' COMPENSATION MAGISTRATE Eliquis 5mg BID (holding prior to surgery) - WORKERS' COMPENSATION MAGISTRATE Metformin (holding) - WORKERS[employer] COMPENSATION MAGISTRATE Sitagliptin (holding) - WORKERS' COMPENSATION MAGISTRATE Tramadol 50mg BID PRN - WORK[employer] COMPENSATION MAGISTRATE Insulin glargine 45 units sub q nightly - WORK[employer] COMPENSATION MAGISTRATE Insulin lispro 10 units sub q with meals (holding) - WORKERS' COMPENSATION MAGISTRATE Atorvastatin 20mg daily Labs Recent Labs 12/28/20 0729 12/29/20 0728 12/30/20 0619 WBC 8.16 8.65 11.80* RBC 3.58* 3.64* 2.99* HGB 10.6* 10.8* 9.4* HCT 31.4* 32.3* 27.4* MCV 88 89 92 MCH 29.6 29.7 31.4 MCHC 33.8 33.4 34.3 PLT 294 319 333 Recent Labs 12/28/20 0729 12/29/20 0728 12/30/20 0619 NA 134* 136 134* K 3.9 4.0 4.7 CL 99 100 99 CO2 28 29 28 BUN 8* 7* 13 CREATININE 0.53* 0.53* 0.74 Glucose: 90/83/96/260/224 Hemoglobin A1C: 13.9 Lab Results Component Value Date CRP 219.2 (H) 12/27/2020 CRPP 11.7 (H) 03/09/201612/23 Bone Biopsy: Preliminary result: moderate Strep agalactiae (Group B) 12/23 Blood Cultures: Preliminary result: Anaerobic bottle positive for MSSA at 18 hours. Aerobic positive for MSSA at 23 hours 12/24 Blood Cultures: NGTD Imaging X-ray Left Hip FINDINGS / IMPRESSION: Left hip AP supine and cross table lateral views: There is severe osteoarthrosis involving the left hip joint. Milder degenerative changes noted in the visualized lower most portion of the incompletely imaged left SI joint and along the pubic symphysis. Vasectomy surgical clips are partially imaged. The bones appear diffusely demineralized. The severity the osteopenia reduces radiographic sensitivity for the detection of a subtle or nondisplaced acute fracture if present. Also, with overlying soft tissues obscuring the region of the interest on the crosstable lateral view including the femoralhead and neck. There is a high degree of clinical concern for a radiographically occult fracture CT imaging can beobtained for further assessment. CT Left Hip w/o contrast FINDINGS / IMPRESSION: * No evidence of acute fracture or dislocation. * There are however end-stage degenerative changes in the left hip with severe joint space narrowing resulting in [id number] as well as subchondral sclerosis and cyst formation in addition to exuberant osteophytosis. * Degrees of the normal except at the lateral aspect of the femoral head neck junction which while nonspecific suggest perhaps an underlying element of CAM- type femoroacetabular impingement was related to the severe osteoarthrosis. * Minimal remodeling in the weightbearing portion of the left femoral head without evidence of discrete flattening or collapse of the articular surface to suggest avascular necrosis. * Incidentally noted couple of elongated regions of intramuscular fat along the proximal aspect of the rectus femoris muscle with a couple of tiny foci of calcification, likely sequela from prior muscle injury with fat replacement, the possibility of intramuscular lipoma is less likely. X-Ray Right Foot FINDINGS / IMPRESSION: There are transmetatarsal amputations at the level of the proximal aspects of the first through fifth metatarsals. Plantar skin and subcutaneous soft tissue ulcer at about the level of the transmetatarsal amputations. There is prominent soft tissue swelling surrounding the ulcer and extending throughout the foot.Osseous irregularity at the amputation margins may be postsurgical. If there is a high degree of clinical concern for osteomyelitis then MR imaging can be obtained to further evaluate for this possibility. Degenerative joint changes and calcaneal enthesopathic changes are similar compared to the prior study. Atherosclerotic arterial calcification is again noted. 12/24 TTE Severely dilated RV, reduced RV function. LFEF 65%. Atria normal size. No regurg or stenosis seen. 12/28 MRI Hip w/o contrast IMPRESSION: 1. Feathery pattern of muscle edema with areas of mild enhancement involving the adductor musculature, visualized portions of the proximal vastus musculature, and gluteus medius and minimus muscles about the evaluated left hip. Imaging features are nonspecific and can be seen with muscle injury, inflammation, or diabetic muscle ischemia. Infectious myositis can be considered in the appropriate clinical context. ?? 2. Indistinct band-shaped area of altered signal and enhancement traversing the femoral neck and extending to the lesser trochanter concerning for stress reaction or impending insufficiency fracture in the setting of severe osteopenia. Please correlate. ?? 3. Severe left hip joint osteoarthrosis with extensive degenerative tearing of the acetabular labrum. ?? 4. Trochanteric bursitis with small volume fluid distending the right trochanteric bursa. ?? 5. Moderate right hip joint osteoarthrosis and mild right trochanteric bursitis demonstrated on thewide [id number] coronal images. Assessment/Plan Assessment Jeff Scott is a 60 y.o. 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 Sympoms improved with dilaudid and antibiosis. Seen by ortho and underwent right BTK amputation on 12/29 for infection control. Surgical course was uncomplicated and appears to be recovering well. Will follow care recs per ortho and assistwith coping as needed. Will need PT consult to assess, aiming for acute rehab after discharge. Lj need PICC placement for IV cefazolin through 01/12. He is otherwise hemodynamically stable at this time. Case management is working on placement at this time. Will likely benefit from acute rehab post-op.Consult PT for recommendations regarding acute rehab placement. 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 Goal: keep knee completely straight LLE/Hip Pain - Well controlled on current regimen - Tylenol 1000 q6 PRN, [employer] COMPENSATION MAGISTRATE tramadol - Robaxin 750mg q4 - lidocaine patch daily - Schedule Dilaudid PO 2mg q4hrs - MRI hip showing osteoarthritis, torn labrum,trochaneteric bursitis and possible myositis of nonspecific etiology, plan to ask ortho about this - Physical Therapy as able Type 2 Diabetes - WORK[employer] COMPENSATION MAGISTRATE regimen of 45 units glargine daily with 10 units lispro with meals - Continue 45 units glargine nightly - Resume Insulin aspart 10 units with meals - Target BG 140-180 - Hemaglobin A1C 13.9 - 500cc bolus LR as needed to replete fluid status euvolemic today - Nutrition consulted for dietary recs and patient education, appreciate recs - Vit C 500mg daily - Vit D3 2000 units daily - BMP daily Psychological Well-Being -Med Psych consult active, appreciate recs - Have seen patient and will continue to follow Non active: Ketoacidosis - resolved - BMP daily Deep Vein Thrombosis of the left lower extremity - Diagnosed in August 2020 - Resume therapeutic Lovenox 1 mg/kg Bid (120 mg BID) - Plan to transition back to DOAC on or before discharge when bleeding risk post-op allows. Hypothyroidism - continue WORK[employer] COMPENSATION MAGISTRATE levothyroxine VTE Prophylaxis - D/C'd WORK[employer]' COMPENSATION MAGISTRATE Eliquis due to surgery - Resume Therapeutic Lovenox 1mg/kg BID Discharge Plan Pending clinical improvement, will d/c to acute rehab vs [facility]. Case management aware and working on placement. Consults Infectious Disease, Ortho, Med Psych, and Nutrition Uri Miller, MS3 12/30/2020 12:46 I was present with the medical student for the history, exam, and medical decision making documented. I have edited the medical student note as appropriate. Edits in green. Fabian Aburto MD 12/30/2020 15:19 ATTENDING ATTESTATION: Date of service: 12/30/2020 I have interviewed and examined the patient and discussed with the housestaff. I agree with and edited (in blue) the findings and plan of care as documented in the note above. Stanley Tillman MD Internal Medicine Hospitalist Service 12/30/2020 15:43 * Linda Wall MD - 12/29/2020 4937 EDT INFECTIOUS DISEASES CONSULT SERVICE PROGRESS NOTE CHIEF COMPLAINT/ID: 60 yo male patient with diabetes mellitus and severe left hip pain with findingof right diabetic foot infection with osteomyelitis and MSSA bacteremia. Subjective: on his way down to MRI and then plan for the OR this afternoon REVIEW OF SYSTEMS: 10-point review of systems is negative except as mentioned above Please refer to the initial ID Consult Note obtained on 12/23/20 for Medical/Family/Social History.I have reviewed this information and there is no significant change from prior. Antibiotics: Cefazolin 2 gm IV Q 8 hours 12/24 - ongoing PRIOR: Cefepime 12/23 - Ceftriaxone 12/23 - Vancomycin 12/23 - Metronidazole 12/23 - PHYSICAL EXAM: VS: BP 139/70 Pulse 92 Temp 38 ??C (100.4 ??F) (Temporal) Resp 16 Ht 185.4 cm (73) Wt (!) 115.7 kg (255 lb 1.2 oz) SpO2 93% BMI 33.65 kg/m?? GENL: pleasant, NAD EENT: sclerae anicteric, moist mucous membranes NECK: supple Neuro: awake, alert Extrem: right foot dressing not taken down Derm: no disseminated rash LABORATORY: Reviewed in detail in [facility]. WBC/RBC/HGB/HCT/PLT/ANC8.65/3.64/10.8/32.3/319/-- (12/29 07) Cr 0.53 MICROBIOLOGY DATA: Reviewed in detail in [facility]. Pertinent for: 12/24/20 blood cx: NGTD 12/23/20 blood cx: 2/4 bottles with MSSA 12/23/20 bone cx: mod group B strep, few MSSA, few mixed gram positives IMAGING DATA: I have independently reviewed the available imaging. 12/24/20 TTE: ??? Right??Ventricle: The right ventricular cavity was severely dilated in size. Right ventricular systolic function was severely reduced. ??? Left??Ventricle: Left ventricular systolic function was normal with an ejection fraction of 60-65%. Left ventricular wall motion was normal; there were no regional wall motion abnormalities. ??? Suboptimal image quality but not obvious valvular vegetations. This does not rule IE given limited sensitivity specially with poor images. 12/22 right foot radiographs: There are transmetatarsal amputations at the level of the proximal aspects of the first through fifth metatarsals. Plantar skin and subcutaneous soft tissue ulcer at about the level of the transmetatarsal amputations. There is prominent soft tissue swelling surrounding the ulcer and extending throughout the foot.Osseous irregularity at the amputation margins may be postsurgical. If there is a high degree of clinical concern for osteomyelitis then MR imaging can be obtained to further evaluate for this possibility. Degenerative joint changes and calcaneal enthesopathic changes are similar compared to the prior study. Atherosclerotic arterial calcification is again noted. ?? 12/[address] w/o contrast: * ??No evidence of acute fracture or dislocation. * ??There are however end-stage degenerative changes in the left hip with severe joint space narrowing resulting in [id number] as well as subchondral sclerosis and cyst formation in addition to exuberant osteophytosis. * ??Degrees of the normal except at the lateral aspect of the femoral head neck junction which while nonspecific suggest perhaps an underlying element of CAM- type femoroacetabular impingement was related to the severe osteoarthrosis. * ??Minimal remodeling in the weightbearing portion of the left femoral head without evidence of discrete flattening or collapse of the articular surface to suggest avascular necrosis. * ??Incidentally noted couple of elongated regions of intramuscular fat along the proximal aspect of the rectus femoris muscle with a couple of tiny foci of calcification, likely sequela from prior muscle injury with fat replacement, the possibility of intramuscular lipoma is less likely. * ??There is osteopenia. * ??Note made of vasectomy clips. A tiny focus of air in the subcutaneous soft tissues of the left inguinal region likely relates to prior injection. * ??Small fat-containing inguinal hernias. ASSESSMENT/RECOMMENDATIONS: 60-year-old male patient with a remote history of craniopharyngeal resection back in 2006, diabetesmellitus, right-sided diabetic foot infections status post amputations in 2019, presents with rightlower extremity including hip pain with finding of right-sided diabetic foot infection and osteomyelitis. Bone culture reveals MSSA and some strep species. The patient was appropriately narrowed to cefazolin. Follow up blood cultures reassuring. TTE without obvious vegetations. Given severity of left hip pain, another MRI performed today. Formal report on this is pending. -in the OR today for right amputation; once this has occurred then course of cefazolin is on the order of two weeks from amputation given surgical resection of source of infection -continue cefazolin (end date Jan 12, 2021) Please reach out by cortext if additional questions arise. Linda Wall, MD, MPH Infectious Disease * Stanley Tillman MD - 12/29/2020 0834 EDT Medicine Progress Note Service Date: 12/29/2020 Admit Date: 12/22/2020 19:00 Reason for Admission: 60 y.o. male admitted with a chief complaint of left leg pain and now with a principal diagnosis of management of severe diabetic right foot wound. 24 Hour Events: NAEO - MRI this morning and surgery with ortho this afternoon Subjective/Objective Subjective Mr. Scott reports he is doing okay today. Anxious about his procedure today but grateful for the care he is receiving. Hip pain is still troublesome when his medication where's off. 8-9/10 at baseline but decreases to 0-1/10 with Dilaudid. He has been NPO since midnight and has no other complaints at this time. Denies nausea, vomiting, chest pain, SOB, fevers, or chills. Review of Systems A ten point review of systems was performed and was negative except for pertinent positives noted in the HPI Objective Vital Signs Temp: [37 ??C (98.6 ??F)-37.3 ??C (99.1 ??F)] , Heart Rate: [96 BPM] , Resp: [18-20] , BP: (134-154)/(77-83) , SpO2: [94 %-95 %] Physical Exam General appearance: Cooperative, alert Lungs: clear to auscultation bilaterally, non labored breathing Heart: regular rate and rhythm, S1, S2 normal Abdomen: soft, non-tender; bowel sounds normal; no masses, no organomegaly Neurologic: AAO to person and place Extremities: extremities warm, atraumatic, no cyanosis or edema. R foot wrapped in gauze. L hip tender to palpation Pulses: LLE DP's palpable, RLE not assessed Skin: Skin color, temperature, turgor normal. Is PICC or central line present? No, PICC/Central line not present. Medications - WORKERS' COMPENSATION MAGISTRATE Levothyroxine 112mcg daily - WORKERS' COMPENSATION MAGISTRATE Eliquis 5mg BID (holding prior to surgery) - WORK[employer] COMPENSATION MAGISTRATE Metformin (holding) - WORK[employer] COMPENSATION MAGISTRATE Sitagliptin (holding) - WORK[employer] COMPENSATION MAGISTRATE Tramadol 50mg BID PRN - WORK[employer] COMPENSATION MAGISTRATE Insulin glargine 45 units sub q nightly - WORK[employer] COMPENSATION MAGISTRATE Insulin lispro 10 units sub q with meals (holding) - WORK[employer] COMPENSATION MAGISTRATE Atorvastatin 20mg daily Labs Recent Labs 12/27/20 0940 12/28/2072812/29/20 0728 WBC 10.20 8.16 8.65 RBC 4.02* 3.58* 3.64* HGB 12.2* 10.6* 10.8* HCT 35.6* 31.4* 32.3* MCV 89 88 89 MCH 30.3 29.6 29.7 MCHC 34.3 33.8 33.4 PLT 335 294 319 Recent Labs 12/27/20 0940 12/28/2072812/29/20 07 NA 133* 134* 136 K 3.9 3.9 4.0 CL 95* 99 100 CO2 24 28 29 BUN 9* 8* 7* CREATININE 0.60* 0.53* 0.53* Glucose: 275/266/254/201/143 Hemoglobin A1C: 13.9 Lab Results Component Value Date CRP 219.2 (H) 12/27/2020 CRPP 11.7 (H) 03/09/201612/23 Bone Biopsy: Preliminary result: moderate Strep agalactiae (Group B) 12/23 Blood Cultures: Preliminary result: Anaerobic bottle positive for MSSA at 18 hours. Aerobic positive for MSSA at 23 hours 12/24 Blood Cultures: Pending Imaging X-ray Left Hip FINDINGS / IMPRESSION: Left hip AP supine and cross table lateral views: There is severe osteoarthrosis involving the left hip joint. Milder degenerative changes noted in the visualized lower most portion of the incompletely imaged left SI joint and along the pubic symphysis. Vasectomy surgical clips are partially imaged. The bones appear diffusely demineralized. The severity the osteopenia reduces radiographic sensitivity for the detection of a subtle or nondisplaced acute fracture if present. Also, with overlying soft tissues obscuring the region of the interest on the crosstable lateral view including the femoralhead and neck. There is a high degree of clinical concern for a radiographically occult fracture CT imaging can beobtained for further assessment. CT Left Hip w/o contrast FINDINGS / IMPRESSION: * No evidence of acute fracture or dislocation. * There are however end-stage degenerative changes in the left hip with severe joint space narrowing resulting in [id number] as well as subchondral sclerosis and cyst formation in addition to exuberant osteophytosis. * Degrees of the normal except at the lateral aspect of the femoral head neck junction which while nonspecific suggest perhaps an underlying element of CAM- type femoroacetabular impingement was related to the severe osteoarthrosis. * Minimal remodeling in the weightbearing portion of the left femoral head without evidence of discrete flattening or collapse of the articular surface to suggest avascular necrosis. * Incidentally noted couple of elongated regions of intramuscular fat along the proximal aspect of the rectus femoris muscle with a couple of tiny foci of calcification, likely sequela from prior muscle injury with fat replacement, the possibility of intramuscular lipoma is less likely. X-Ray Right Foot FINDINGS / IMPRESSION: There are transmetatarsal amputations at the level of the proximal aspects of the first through fifth metatarsals. Plantar skin and subcutaneous soft tissue ulcer at about the level of the transmetatarsal amputations. There is prominent soft tissue swelling surrounding the ulcer and extending throughout the foot.Osseous irregularity at the amputation margins may be postsurgical. If there is a high degree of clinical concern for osteomyelitis then MR imaging can be obtained to further evaluate for this possibility. Degenerative joint changes and calcaneal enthesopathic changes are similar compared to the prior study. Atherosclerotic arterial calcification is again noted. 12/24 TTE Severely dilated RV, reduced RV function. LFEF 65%. Atria normal size. No regurg or stenosis seen. 12/28 MRI Hip w/o contrast Pending final read Assessment/Plan Assessment Jeff Scott is a 60 y.o. 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 Sympoms improved with dilaudid and antibiosis. Seen by ortho, amputation likely tomorrow afternoon. Will hold PM Lovenox and verify OR status with ortho this evening. Will also touch base about post-surgical care plans and whether he will remain on the medical service or transfer to an ortho primary patient with medicine consulting. Will follow up on the MRI read once complete. He is otherwise stable from a medical perspective and awaiting surgery at this time. Will reach out to ortho regardingpost-amputation pain management plan. Case management is working on [facility] placement at this time. Will likely benefit from acute rehab post-op. Consult PT for recommendations regarding acute rehab placement. Plan Sepsis due to MSSA Bacteremia Osteomyelitis of R foot - s/p debridement by orthopedics in the ED, wound cultures obtained - preliminary read: moderate Strep agalactiae (Group B) - 12/23 blood cultures: preliminary read: MSSA in anaerobic cultures and aerobic cultures - TTE on 12/25 -> no evidence of IE but poor imaging - Consider GAGE if repeat cultures come back positive - ID consulted, appreciate recs - continue cefazolin anticipate prolonged course for MSSA bacteremia - f/u 12/24 blood cultures -> no growth to date - Post-BKA will need cefazolin two weeks from negative cultures - CBC daily - Wound management by nursing staff - Ortho consulted, appreciate recs - plan for BTK amputation this afternoon - Follow-up for post-amputation pain management recommendations LLE/Hip Pain - Well controlled on current regimen - Tylenol 1000 q6 PRN, WORK[employer] COMPENSATION MAGISTRATE tramadol - Robaxin 750mg q4 - lidocaine patch daily - Dilaudid PO 2mg q4 PRN - Follow up MRI Hip completed this AM - Physical Therapy as able Type 2 Diabetes - WORK[employer]' COMPENSATION MAGISTRATE regimen of 45 units glargine daily with 10 units lispro with meals - Continue 45 units glargine nightly - d/c scheduled aspart and start SSI q6hrs while NPO - BG checks q6hrs while NPO - Will resume Insulin aspart 10 units with meals post -op - Target BG 140-180 - Hemaglobin A1C 13.9 - 500cc bolus LR as needed to replete fluid status euvolemic today - Nutrition consulted for dietary recs and patient education, appreciate recs - Vit C 500mg daily - Vit D3 2000 units daily - BMP daily Psychologic Well-Being -Med Psych consult active, appreciate recs - Have seen patient and will continue to follow Non active: Ketoacidosis - resolved - BMP daily Deep Vein Thrombosis of the left lower extremity - Diagnosed in August 2020 - Currently holding therapeutic Lovenox 1 mg/kg Bid (120 mg BID) in anticipation of his upcoming BKA tomorrow, - Plan to transition back to DOAC on or before discharge when bleeding risk post-op allows. Hypothyroidism - continue WORK[employer]' COMPENSATION MAGISTRATE levothyroxine VTE Prophylaxis - D/C'd WORK[employer]' COMPENSATION MAGISTRATE Eliquis due to surgery - Therapeutic Lovenox 1mg/kg BID - Holding at this time, restart post-op when appropriate Discharge Plan Pending clinical improvement, will d/c to [facility]. Case management aware and working on placement. Consults Infectious Disease, Ortho, Med Psych, and Nutrition Uri Miller, 3 12/29/2020 8:34 I was present with the medical student for the history, exam, and medical decision making documented. I have edited the medical student note as appropriate. Desiree Marcano DO 12/29/2020 13:07 ATTENDING ATTESTATION: Date of service: 12/29/2020 I have interviewed and examined the patient and discussed with the housestaff. I agree with and edited (in blue) the findings and plan of care as documented in the note above. Stanley Tillman MD Internal Medicine Hospitalist Service 12/29/2020 14:00 * Seeker, MD Js - 12/29/2020 0616 EDT Orthopaedic Progress Note for 12/29/20 Pt Name: Jeff Scott Problem: Right foot osteomyelitis, Left hip pain Procedure: Plan for transtibial amputation 24 Hr. Unable to tolerate MRI, will attempt this morning S- Discussed plan for surgery. All questions were answered. He understands chronic pain. His right foot feels fine O: Blood pressure (!) 154/83, pulse 92, temperature 37 ??C (98.6 ??F), temperature source Oral, resp. rate 20, height 185.4 cm (73), weight (!) 115.7 kg (255 lb), SpO2 95 %. Focused MSK: RLE No change in appearance of R foot 2+ DP Diminished sensation in stocking glove distribution 07/07 AT, [facility] [place] Labs: WBC/Hgb/Hct/Plts: 8.16/10.6/31.4/294 (12/28 728) Na/K/Cl/CO2: 134/3.9/99/28 (12/28 728) BUN/Cr/glu/ALT/AST/amyl/lip: 8/0.53/143/--/--/--/-- (12/28 728) PT/INR/PTT: 14.9/1.3/37 (12/28 1402) A: Jeff Scott is a 60 y.o. with plan for transtibial amputation of RLE today. L hip pain pending repeat attempt at MRI today P: 1. WB - NWB RLE 2. Abx - Per ID 3. DVT prophylaxis - Held 4. PT/OT - Post op 5. Diet - NPO Js Meza MD 12/29/20 6:16 [id number] * Mars Ledezma - 12/28/2020 1121 EDT Case Management Note: Recommended Discharge Destination: [facility]. This director underwriter sales met with pt to discuss discharge. He reports after [facility] his intention is to return to his home in [place]. Although he is his are getting a divorce, he states they want to do so amicably. He will continue to live at home until he is able to find another place to live. He reports his is on board with this plan. Pt would like to be listed for the following [facility] in no particular order however his last choice would be [place]. - [facility] [place] - [facility] - [place] Pt listed on [facility]. Will continue to follow for discharge planning. Mars Ledezma RN, LANDSCAPING SPECIALIST, [facility] Pager # [phone] * Stanley Tillman MD - 12/28/2020 0897 EDT Medicine Progress Note Service Date: 12/28/2020 Admit Date: 12/22/2020 19:00 Reason for Admission: 60 y.o. male admitted with a chief complaint of left leg pain and now with a principal diagnosis of management of severe diabetic right foot wound. 24 Hour Events: - Seen by Med Psych - Seen by Spiritual Care - Seen by ID - MRI of left hip ordered per ortho - Surgery likely tomorrow afternoon Subjective/Objective Subjective Mr. Scott reports that he is doing okay this morning. There was an attempt to go down to MRI overnight, but on arrival the maneuvers caused him too much pain and he was brought back upstairs without performing it. We talked about trying again but this time with a prophylactic dose of pain medication prior and he was amenable to this idea. He reports that he was pleased to see the Spiritual Care staff and is glad the the Med Psych team is now stopping by to speak with him. He reports good PO intake and denies nausea, vomiting, SOB, chest pain, fevers, chills, or calf pain. He has no other concerns at this time. Review of Systems A ten point review of systems was performed and was negative except for pertinent positives noted in the HPI Objective Vital Signs Temp: [36.8 ??C (98.2 ??F)-37.4 ??C (99.4 ??F)] , Heart Rate: [95 BPM] , Resp: [14-16] , BP: (140-146)/(69-75) , SpO2: [97 %] Physical Exam General appearance: Cooperative, alert Lungs: clear to auscultation bilaterally, non labored breathing Heart: regular rate and rhythm, S1, S2 normal Abdomen: soft, non-tender; bowel sounds normal; no masses, no organomegaly Neurologic: AAO to person and place Extremities: extremities warm, atraumatic, no cyanosis or edema. R foot wrapped in gauze. L hip tender to palpation Pulses: LLE DP's palpable, RLE not assessed Skin: Skin color, temperature, turgor normal. Is PICC or central line present? No, PICC/Central line not present. Medications - WORKERS' COMPENSATION MAGISTRATE Levothyroxine 112mcg daily - WORKERS' COMPENSATION MAGISTRATE Eliquis 5mg BID (holding prior to surgery) - WORKERS' COMPENSATION MAGISTRATE Metformin (holding) - WORKERS' COMPENSATION MAGISTRATE Sitagliptin (holding) - WORKERS' COMPENSATION MAGISTRATE Tramadol 50mg BID PRN - WORKERS' COMPENSATION MAGISTRATE Insulin glargine 45 units sub q nightly - WORKERS' COMPENSATION MAGISTRATE Insulin lispro 10 units sub q with meals (holding) - WORKERS' COMPENSATION MAGISTRATE Atorvastatin 20mg daily Labs Recent Labs 12/26/20 0809 12/27/20 0940 12/28/20 0729 WBC 8.75 10.20 8.16 RBC 3.73* 4.02* 3.58* HGB 11.7* 12.2* 10.6* HCT 33.3* 35.6* 31.4* MCV 89 89 88 MCH 31.4 30.3 29.6 MCHC 35.1 34.3 33.8 PLT 275 335 294 Recent Labs 12/26/20 0809 12/27/20 0940 12/28/20 0729 NA 134* 133* 134* K 3.5 3.9 3.9 CL 101 95* 99 CO2 27 24 28 BUN 8* 9* 8* CREATININE 0.55* 0.60* 0.53* Glucose: 275/266/254/201/143 Hemoglobin A1C: 13.9 Lab Results Component Value Date CRP 219.2 (H) 12/27/2020 CRPP 11.7 (H) 03/09/201612/23 Bone Biopsy: Preliminary result: moderate Strep agalactiae (Group B) 12/23 Blood Cultures: Preliminary result: Anaerobic bottle positive for MSSA at 18 hours. Aerobic positive for MSSA at 23 hours 12/24 Blood Cultures: Pending Imaging X-ray Left Hip FINDINGS / IMPRESSION: Left hip AP supine and cross table lateral views: There is severe osteoarthrosis involving the left hip joint. Milder degenerative changes noted in the visualized lower most portion of the incompletely imaged left SI joint and along the pubic symphysis. Vasectomy surgical clips are partially imaged. The bones appear diffusely demineralized. The severity the osteopenia reduces radiographic sensitivity for the detection of a subtle or nondisplaced acute fracture if present. Also, with overlying soft tissues obscuring the region of the interest on the crosstable lateral view including the femoralhead and neck. There is a high degree of clinical concern for a radiographically occult fracture CT imaging can beobtained for further assessment. CT Left Hip w/o contrast FINDINGS / IMPRESSION: * No evidence of acute fracture or dislocation. * There are however end-stage degenerative changes in the left hip with severe joint space narrowing resulting in [id number] as well as subchondral sclerosis and cyst formation in addition to exuberant osteophytosis. * Degrees of the normal except at the lateral aspect of the femoral head neck junction which while nonspecific suggest perhaps an underlying element of CAM- type femoroacetabular impingement was related to the severe osteoarthrosis. * Minimal remodeling in the weightbearing portion of the left femoral head without evidence of discrete flattening or collapse of the articular surface to suggest avascular necrosis. * Incidentally noted couple of elongated regions of intramuscular fat along the proximal aspect of the rectus femoris muscle with a couple of tiny foci of calcification, likely sequela from prior muscle injury with fat replacement, the possibility of intramuscular lipoma is less likely. X-Ray Right Foot FINDINGS / IMPRESSION: There are transmetatarsal amputations at the level of the proximal aspects of the first through fifth metatarsals. Plantar skin and subcutaneous soft tissue ulcer at about the level of the transmetatarsal amputations. There is prominent soft tissue swelling surrounding the ulcer and extending throughout the foot.Osseous irregularity at the amputation margins may be postsurgical. If there is a high degree of clinical concern for osteomyelitis then MR imaging can be obtained to further evaluate for this possibility. Degenerative joint changes and calcaneal enthesopathic changes are similar compared to the prior study. Atherosclerotic arterial calcification is again noted. 12/24 TTE Severely dilated RV, reduced RV function. LFEF 65%. Atria normal size. No regurg or stenosis seen. Assessment/Plan Assessment Jeff Scott is a 60 y.o. 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 Sympoms improved with dilaudid and antibiosis. Seen by ortho, amputation likely tomorrow afternoon. Will hold PM Lovenox and verify OR status with ortho this evening. Will also touch base about post-surgical care plans and whether he will remain on the medical service or transfer to an ortho primary patient with medicine consulting. Will follow up on the MRI read once complete. He is otherwise stable from a medical perspective and awaiting surgery at this time. Plan Sepsis due to MSSA Bacteremia Osteomyelitis of R foot - s/p debridement by orthopedics in the ED, wound cultures obtained - preliminary read: moderate Strep agalactiae (Group B) - 12/23 blood cultures: preliminary read: MSSA in anaerobic cultures and aerobic cultures - TTE on 12/25 -> no evidence of IE but poor imaging - Consider GAGE if repeat cultures come back positive - ID consulted, appreciate recs - continue cefazolin anticipate prolonged course for MSSA bacteremia - f/u 12/24 blood cultures - Post-BKA will need cefazolin two weeks from negative cultures - CBC daily - Wound management by nursing staff - Ortho consulted, appreciate recs - plan for BTK amputation Sunday, ortho putting in pre-op orders LLE/Hip Pain - Well controlled on current regimen - Tylenol 1000 q6 PRN, WORKERS' COMPENSATION MAGISTRATE tramadol - Robaxin 750mg q4 - lidocaine patch daily - Dilaudid PO 2mg q4 PRN - MRI ordered to evaluate persistent left hip pain - 2mg IV morphine prior to MRI for pain control - Physical Therapy as able Type 2 Diabetes - WORKERS' COMPENSATION MAGISTRATE regimen of 45 units glargine daily with 10 units lispro with meals - Continue 45 units glargine nightly - Insulin aspart 10 units with meals - Target BG 140-180 - Hemaglobin A1C 13.9 - 500cc bolus LR as needed to replete fluid status euvolemic today - Nutrition consulted for dietary recs and patient education, appreciate recs - Vit C 500mg daily - Vit D3 2000 units daily - BMP daily Psychologic Well-Being -Med Psych consult active, appreciate recs - Have seen patient and will continue to follow Non active: Ketoacidosis - resolved - BMP daily Deep Vein Thrombosis of the left lower extremity - Diagnosed in August 2020 - Currently holding therapeutic Lovenox 1 mg/kg Bid (120 mg BID) in anticipation of his upcoming BKA tomorrow, - Plan to transition back to DOAC on or before discharge when bleeding risk post-op allows. Hypothyroidism - continue WORKERS' COMPENSATION MAGISTRATE levothyroxine VTE Prophylaxis - D/C'd WORKERS' COMPENSATION MAGISTRATE Eliquis due to surgery - Therapeutic Lovenox 1mg/kg BID - Hold PM dose and AM dose tomorrow as likely will go to the OR tomorrow afternoon Discharge Plan Pending clinical improvement, will d/c to [facility]. Case management aware and working on placement. Consults Infectious Disease, Ortho, Med Psych, and Nutrition Uri Miller, MS3 12/28/2020 9:50 I was present with the medical student for the history, exam, and medical decision making documented. I have edited the medical student note as appropriate. Desiree Marcano DO 12/28/2020 13:49 ATTENDING ATTESTATION: Date of service: 12/28/2020 I have interviewed and examined the patient and discussed with the housestaff. I agree with and edited (in blue) the findings and plan of care as documented in the note above. Stanley Tillman MD Internal Medicine Hospitalist Service 12/28/2020 14:06 * Seeker, MD Js - 12/28/2020 0600 EDT Orthopaedic Progress Note ?? PROBLEM: Right diabetic foot osteomyelitis with pending transtibial amputation ?? 24 HOUR EVENTS: Unable to tolerate MRI ?? SUBJECTIVE: Patient stated his right foot has not changed. He believes that his left hip pain is not worsening but is constant and limiting. He has not ambulated he is using urinal. He does not have radiating paresthesias or weakness. No incontinence. He describes his pain in his posterior left buttock. Is worse with movement ?? OBJECTIVE: Gen: NAD, AOx3 No tenderness to palpation over his lumbar spine No tenderness to palpation over his greater trochanter Pain with internal/external rotation Pain with axial loading ?? RLE: Dressing C/D/I Decreased in stocking glove distribution Motor: 5/5 TA/GS DP +2, toes warm w/ brisk cap refill, trace edema ?? ASSESSMENT/PLAN: :??Briefly, Jeff is a pleasant 60-year-old with TBI, grossly uncontrolled T2DM with A1c of??13.9 pending right transtibial amputation. Plan for OR tomorrow afternoon. Nonweightbearing right lower extremity, activity as tolerated Agree with antibiotics and infectious disease consultation agree with tight blood sugar control Okay for diet from an orthopedic subjective Encourage ambulation, SCDs for DVT prophylaxis PT eval Pending the patient's response to medical management, the patient may require further debridement/amputation for which he is not open to at this time. ??We will continue to have ongoing discussions with the patient if he appears to be trending in a worsening direction ? Js Meza MD 12/28/2020 12:50 PGY3 [id number] ?? Pre Op Checklist - Consent completed - Extremity signed - NPO at midnight (ok to give sips of water with mediations) - Insert PIV panel ordered (20 gauge or larger) - Case booked ?? Labs: - CBC & Coags ordered - COVID Test Ordered - Type and Screen, ABO - UPT (female of child bearing age, 12-55) ?? Medications: - mIVF ordered - Pre-operative antibiotics ordered - Anticoagulation reviewed and discontinued if appropriate - ACS multitrauma patients continue lovenox perioperitavely as default - ARBS/DEBRA medications discontinued (if necessary) * Frank Torres - 12/27/2020 1358 EDT Spiritual Care Department Inspector Heating And Refrigeration Note Re: Jeff Scott : 1960 Room: M617/M617-01 Service: Adult Hospital Medicine Scientology: None Jeff has received a visit from the Spiritual Care Department on 12/27/2020. 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 Inspector Heating And Refrigeration assured pt it isn't what the visit is all about. This moment, pt is sitting in a recliner and had brain tumor removed 17yrs ago. Pt said procedure affected memory/balance. Pt is here due to foot infection. Pt said things are heading toward a good direction. Pt is relaxed and welcomed visit. Inspector Heating And Refrigeration provided support/listening presence, offered prayer/hope. DEMOGRAPHICS Spiritual Care Welcomed End of Life Patient Is Restorationism Importance Moderately Important Current Support System Caregivers Level of Support Strong Support ENCOUNTER DATA Date of Encounter 12/27/20 Time of Encounter 1335 Reason for Encounter Referral Referred by Self Care Level 4 - Significant Patient Concerns Reason not visited ENCOUNTER Needs Addressed Prayer Support, See Assessment/Comments Interventions Spiritual Counseling Sacraments Provided Date of Anointing Communion Date of Communion Date of Taoist OUTCOME Outcome Stress Level Reduced Stress Outcome of Encounter Expressed Emotions, Needs Met, Patient Satisfied CARE PLAN Plan Patient/Family will Call if Needed Consult With No Consult Needed Additional Support See Assessments/Comments Was Clergy Needed? Yes, provided, Endoscopy Rn TIME STAMP: Total time spent minutes in direct floor time; >50% of time was spent in spiritual care. FRANK TORRES 12/27/2020 13:58 * Linda Wall MD - 12/27/2020 6153 EDT INFECTIOUS DISEASES CONSULT SERVICE PROGRESS NOTE CHIEF COMPLAINT/ID: 60 yo male patient with diabetes mellitus and severe left hip pain with findingof right diabetic foot infection with osteomyelitis and MSSA bacteremia. Subjective: excruciating pain in left hip. No other complaints at this time. REVIEW OF SYSTEMS: 10-point review of systems is negative except as mentioned above Please refer to the initial ID Consult Note obtained on 12/23/20 for Medical/Family/Social History.I have reviewed this information and there is no significant change from prior. Antibiotics: Cefazolin 2 gm IV Q 8 hours 12/24 - ongoing PRIOR: Cefepime 12/23 - Ceftriaxone 12/23 - Vancomycin 12/23 - Metronidazole 12/23 - PHYSICAL EXAM: VS: BP 135/74 (BP Cuff Location: Left arm, BP Patient Position: Semi fowlers) Pulse 89 Temp 37.2 ??C (99 ??F) (Oral) Resp 16 Ht 185.4 cm (73) Wt (!) 115.7 kg (255 lb) SpO2 96% BMI 33.64 kg/m?? GENL: pleasant, NAD EENT: sclerae anicteric, moist mucous membranes NECK: supple CV: RRR without obvious murmurs LUNGS: unlabored ABDM: soft, non-tender MSK: right foot wrapped in gauze SKIN: no rash, no obvious jaundice NEURO: awake PSYCH: non-anxious LABORATORY: Reviewed in detail in PRISM. WBC/RBC/HGB/HCT/PLT/ANC10.20/4.02/12.2/35.6/335/-- (12/27 6147) Cr 0.60 MICROBIOLOGY DATA: Reviewed in detail in PRISM. Pertinent for: 12/24/20 blood cx: PENDING 12/23/20 blood cx: 2/4 bottles with MSSA 12/23/20 bone cx: mod group B strep, few MSSA, few mixed gram positives IMAGING DATA: I have independently reviewed the available imaging. 12/24/20 TTE: ??? Right??Ventricle: The right ventricular cavity was severely dilated in size. Right ventricular systolic function was severely reduced. ??? Left??Ventricle: Left ventricular systolic function was normal with an ejection fraction of 60-65%. Left ventricular wall motion was normal; there were no regional wall motion abnormalities. ??? Suboptimal image quality but not obvious valvular vegetations. This does not rule IE given limited sensitivity specially with poor images. 12/22 right foot radiographs: There are transmetatarsal amputations at the level of the proximal aspects of the first through fifth metatarsals. Plantar skin and subcutaneous soft tissue ulcer at about the level of the transmetatarsal amputations. There is prominent soft tissue swelling surrounding the ulcer and extending throughout the foot.Osseous irregularity at the amputation margins may be postsurgical. If there is a high degree of clinical concern for osteomyelitis then MR imaging can be obtained to further evaluate for this possibility. Degenerative joint changes and calcaneal enthesopathic changes are similar compared to the prior study. Atherosclerotic arterial calcification is again noted. ?? 12/[address] w/o contrast: * ??No evidence of acute fracture or dislocation. * ??There are however end-stage degenerative changes in the left hip with severe joint space narrowing resulting in [id number] as well as subchondral sclerosis and cyst formation in addition to exuberant osteophytosis. * ??Degrees of the normal except at the lateral aspect of the femoral head neck junction which while nonspecific suggest perhaps an underlying element of CAM- type femoroacetabular impingement was related to the severe osteoarthrosis. * ??Minimal remodeling in the weightbearing portion of the left femoral head without evidence of discrete flattening or collapse of the articular surface to suggest avascular necrosis. * ??Incidentally noted couple of elongated regions of intramuscular fat along the proximal aspect of the rectus femoris muscle with a couple of tiny foci of calcification, likely sequela from prior muscle injury with fat replacement, the possibility of intramuscular lipoma is less likely. * ??There is osteopenia. * ??Note made of vasectomy clips. A tiny focus of air in the subcutaneous soft tissues of the left inguinal region likely relates to prior injection. * ??Small fat-containing inguinal hernias. ASSESSMENT/RECOMMENDATIONS: 60-year-old male patient with a remote history of craniopharyngeal resection back in 2006, diabetesmellitus, right-sided diabetic foot infections status post amputations in 2019, presents with rightlower extremity including hip pain with finding of right-sided diabetic foot infection and osteomyelitis. Bone culture reveals MSSA and some strep species. The patient was appropriately narrowed to cefazolin. Follow-up blood cultures are pending. A TTE was performed and does not reveal any obvious vegetations. Regardless plan for therapy will be extended in the setting of MSSA and underlying osteomyelitis. Left hip imaging supports severe arthritis changes but no obvious findings suggestive of active infection in joint space. Ongoing severe pain in left hip. -Follow blood cultures -Continue cefazolin -Awaiting surgery (pending potential left BKA at some point potentially in the next few days); if BKA is performed then would plan for cefazolin on the order of two weeks from negative cultures. I will provide further input as we follow cultures and surgical plans. Please reach out by cortext if additional questions arise. Linda Wall MD, MPH Infectious Disease * Nena Allison - 12/27/2020 1317 EDT Psychotherapy Progress Note Name: Jeff Scott : 1960 Date of Service: 12/27/2020 Referring Provider: Jason Isaac* Primary Care Provider: Jason Batres MD (General) Start Time: 13:17 End Time: 14:02 Duration of Session: 45 Minutes Session Type: 23090: Psychotherapy, 38-52 minutes with patient Problem: Jeff Scott is a 60 y.o., White, male referred for medical psychology services to address coping with psychosocial stressors and pending amputation of foot. 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 Subjective/Session Content: Pt consented to Med Psych consult. Clinician provided pt with a support frame to discuss his current life stressors (medical presentation, familial challenges). Pt shared details of his medical hx, including a brain tumor that was resected about 15 years ago. Pt explained that since this, he becomes tearful quickly and describes his cognitive processing as slow. He stated that this has negatively impacted his relationships and described circumstances wherein he worried that family members mayhave taken advantage of his cognitive deficits. He has previously been connected with social services counselor near his home which were helpful. Clinician described the role of Adult Protective Services and inquired about pt's comfort with clinician exploring if this may be a reportable offense. Pt consented. Objective: Appearance: Ill at ease Behavior: cooperative, sensitive and poor eye contact Speech: of normal rate, tone and volume Mood: worried, sad and depressed Affect: labile Thought Process: logical Thought Content: no apparent abnormalities of thought content Cognitive (MMSE if indicated): Poor Concentration, slow cognitive processing (due to brain tumor and resection per pt report) Suicidality: No evidence of suicidality. Pt's thoughts were future and goal oriented. Assessment: Jeff is a 60 y.o., White, male referred to our service in order to address coping with psychosocial stressors and pending amputation of foot. Pt endorsed depressive sxs (depressed mood, tearfulness). Pt expressed need for additional social supports. Clinician cortexted pt's manager of case to coordinate care. Pt will likely benefit from supportive psychotherapy to process medical process and other stressors. Diagnostic Impressions: Adjustment with depressed mood Summary of Goals: Goal 1: stabilize mood Goal 2: improve coping Goal 3: process emotional eperience of medical presentation as needed Anticipated response to treatment: Reduce distress and increase positive coping. Treatment Plan: 1. Med psych will continue to follow patient throughout their admission. 2. Utilize supportive psychotherapy to process emotional response to medical presentation as pt is interested. 3. Utilize supportive psychotherapy to identify adaptive coping strategies for psychosocial stressors. Frequency: 1-2 Times/Week Expected duration of services: Services remain available to the patient and family throughout the patient's hospitalization. Recommendations for Healthcare Providers: Pt has some cognitive deficits and would benefit from providers speaking slowly with frequent pauses to allow for pt to process information. Thank you for including us in this patient's care today. Please reach out if you have any questions. Nena Allison M.S. Renewals Manager Pager #: [phone] Cosigned by Patrica Lui, PhD at 12/28/2020 10:53 EDT Associated attestation - Patrica Lui, PhD - 12/28/2020 1053 EDT I have read and reviewed this note. Clinical supervision will include discussion of this session. Iconcur with the internal consultant's findings and treatment plan. Services provided were routine and within thecompetence of this internal consultant. Nena discussed potential need for reporting pt's statements to APS with me and plan is for a report to be made today Patrica Lui, Ph.D. Licensed Psychologist-Doctorate Clinical Histotechnologist Supervisor * Stanley Tillman MD - 12/27/2020 0943 EDT Medicine Progress Note Service Date: 12/27/2020 Admit Date: 12/22/2020 19:00 Reason for Admission: 60 y.o. male admitted with a chief complaint of left leg pain and now with a principal diagnosis of management of severe diabetic right foot wound. 24 Hour Events: - PT eval Subjective/Objective Subjective Mr. Scott reports that he is doing okay today. He reports his hip pain is still very present with movement but is well controlled at baseline. He has not yet seen med psych but is hopefull they will stop by today to speak with him. He has been eating and drinking well and has no other complaints atthis time. He denies nausea, vomiting, SOB, chest pain, fevers, chills, LE pain, or abdominal pain. Review of Systems A ten point review of systems was performed and was negative except for pertinent positives noted in the HPI Past medical, social and family history reviewed and unchanged. Patient was also reviewed electronically with my partner Dr. Allan who cared for him previously. Objective Vital Signs Temp: [37 ??C (98.6 ??F)-37.5 ??C (99.5 ??F)] , Heart Rate: [85 BPM-98 BPM] , Resp: [16-20] , BP: (111-137)/(60-74) , SpO2: [93 %-96 %] Physical Exam General appearance: Cooperative, alert Lungs: clear to auscultation bilaterally, non labored breathing Heart: regular rate and rhythm, S1, S2 normal Abdomen: soft, non-tender; bowel sounds normal; no masses, no organomegaly Neurologic: AAO to person and place Extremities: extremities warm, atraumatic, no cyanosis or edema. R foot wrapped in gauze. SCDs in place. L hip tender to palpation Pulses: LLE DP's palpable, RLE not assessed Skin: Skin color, temperature, turgor normal. Is PICC or central line present? No, PICC/Central line not present. Medications - WORKERS' COMPENSATION MAGISTRATE Levothyroxine 112mcg daily - WORKERS' COMPENSATION MAGISTRATE Eliquis 5mg BID (holding prior to surgery) - WORKERS' COMPENSATION MAGISTRATE Metformin (holding) - WORK[employer] COMPENSATION MAGISTRATE Sitagliptin (holding) - WORKERS' COMPENSATION MAGISTRATE Tramadol 50mg BID PRN - WORK[employer]' COMPENSATION MAGISTRATE Insulin glargine 45 units sub q nightly - WORK[employer] COMPENSATION MAGISTRATE Insulin lispro 10 units sub q with meals (holding) - [employer] COMPENSATION MAGISTRATE Atorvastatin 20mg daily Labs Recent Labs 12/25/20 0803 12/26/20 0809 12/27/20 0940 WBC 10.58* 8.75 10.20 RBC 3.57* 3.73* 4.02* HGB 11.0* 11.7* 12.2* HCT 31.1* 33.3* 35.6* MCV 87 89 89 MCH 30.8 31.4 30.3 MCHC 35.4 35.1 34.3 PLT 216 275 335 Recent Labs 12/25/20 0803 12/26/20 0809 12/27/20 0940 NA 131* 134* 133* K 3.3* 3.5 3.9 CL 97 101 95* CO2 25 27 24 BUN 8* 8* 9* CREATININE 0.55* 0.55* 0.60* Glucose: 177/250/129/186/150 Hemoglobin A1C: 13.9 Lab Results Component Value Date CRP 335.3 (H) 12/22/2020 CRPP 11.7 (H) 03/09/201612/23 Bone Biopsy: Preliminary result: moderate Strep agalactiae (Group B) 12/23 Blood Cultures: Preliminary result: Anaerobic bottle positive for MSSA at 18 hours. Aerobic positive for MSSA at 23 hours 12/24 Blood Cultures: Pending Imaging X-ray Left Hip FINDINGS / IMPRESSION: Left hip AP supine and cross table lateral views: There is severe osteoarthrosis involving the left hip joint. Milder degenerative changes noted in the visualized lower most portion of the incompletely imaged left SI joint and along the pubic symphysis. Vasectomy surgical clips are partially imaged. The bones appear diffusely demineralized. The severity the osteopenia reduces radiographic sensitivity for the detection of a subtle or nondisplaced acute fracture if present. Also, with overlying soft tissues obscuring the region of the interest on the crosstable lateral view including the femoralhead and neck. There is a high degree of clinical concern for a radiographically occult fracture CT imaging can beobtained for further assessment. CT Left Hip w/o contrast FINDINGS / IMPRESSION: * No evidence of acute fracture or dislocation. * There are however end-stage degenerative changes in the left hip with severe joint space narrowing resulting in [id number] as well as subchondral sclerosis and cyst formation in addition to exuberant osteophytosis. * Degrees of the normal except at the lateral aspect of the femoral head neck junction which while nonspecific suggest perhaps an underlying element of CAM- type femoroacetabular impingement was related to the severe osteoarthrosis. * Minimal remodeling in the weightbearing portion of the left femoral head without evidence of discrete flattening or collapse of the articular surface to suggest avascular necrosis. * Incidentally noted couple of elongated regions of intramuscular fat along the proximal aspect of the rectus femoris muscle with a couple of tiny foci of calcification, likely sequela from prior muscle injury with fat replacement, the possibility of intramuscular lipoma is less likely. X-Ray Right Foot FINDINGS / IMPRESSION: There are transmetatarsal amputations at the level of the proximal aspects of the first through fifth metatarsals. Plantar skin and subcutaneous soft tissue ulcer at about the level of the transmetatarsal amputations. There is prominent soft tissue swelling surrounding the ulcer and extending throughout the foot.Osseous irregularity at the amputation margins may be postsurgical. If there is a high degree of clinical concern for osteomyelitis then MR imaging can be obtained to further evaluate for this possibility. Degenerative joint changes and calcaneal enthesopathic changes are similar compared to the prior study. Atherosclerotic arterial calcification is again noted. 12/24 TTE Severely dilated RV, reduced RV function. LFEF 65%. Atria normal size. No regurg or stenosis seen. Assessment/Plan Assessment Jeff Scott is a 60 y.o. 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 Sympoms improved with dilaudid and antibiosis. Seen by ortho, amputation this week. Will get d/c WORK[employer]' COMPENSATION MAGISTRATE Eliquis and transition to weight-basedLovenox in anticipation of surgery and follow up with ortho regarding anticipated scheduled date. Ongoing L hip pain from recent fall. Will increase the frequency of his PRN dilaudid. He is otherwisestable from a medical perspective and awaiting surgery at this time. Plan Sepsis due to MSSA Bacteremia Osteomyelitis of R foot - s/p debridement by orthopedics in the ED, wound cultures obtained - preliminary read: moderate Strep agalactiae (Group B) - 12/23 blood cultures: preliminary read: MSSA in anaerobic cultures and aerobic cultures - TTE on 12/25 -> no evidence of IE but poor imaging - Consider GAGE if repeat cultures come back positive - ID consulted, appreciate recs - continue cefazolin anticipate prolonged course for MSSA bacteremia - f/u 12/24 blood cultures - CBC daily - Wound management by nursing staff - Ortho consulted, appreciate recs - plan for BTK amputation early next week, will touch base with ortho about the planned surgical date LLE/Hip Pain - Well controlled on current regimen - Tylenol 1000 q6 PRN, WORK[employer]' COMPENSATION MAGISTRATE tramadol - Robaxin 750mg q4 - lidocaine patch daily - Dilaudid PO 2mg q4 PRN Physical Therapy Type 2 Diabetes - WORKERS' COMPENSATION MAGISTRATE regimen of 45 units glargine daily with 10 units lispro with meals - Continue 45 units glargine nightly - Insulin aspart 10 units with meals - Target BG 140-180 - Hemaglobin A1C 13.9 - 500cc bolus LR as needed to replete fluid status euvolemic today - Nutrition consulted for dietary recs and patient education, appreciate recs - Vit C 500mg daily - Vit D3 2000 units daily - BMP daily Psychologic Well-Being -Med Psych consult active, will see patient Non active: Ketoacidosis - resolved - BMP daily Deep Vein Thrombosis of the left lower extremity - Diagnosed in August 2020 - Start therapeutic Lovenox 1 mg/kg Bid (120 mg BID) in anticipation of his upcoming BKA Holding DOAC and will need to coordinate with surgery to hold Lovenox prior to surgery. Plan to transition back to DOAC on or before discharge when bleeding risk post-op allows. Hypothyroidism - continue WORK[employer]' COMPENSATION MAGISTRATE levothyroxine VTE Prophylaxis - D/C WORK[employer]' COMPENSATION MAGISTRATE Eliquis due to surgery - Start Lovenox weight-based dosing Discharge Plan Pending clinical improvement Consults Infectious Disease and Nutrition Uri Miller, MS3 12/27/2020 12:05 I was present with the medical student for the history, exam, and medical decision making documented. I have edited the medical student note as appropriate in underline. Desiree Marcano DO 12/27/2020 12:38 ATTENDING ATTESTATION: Date of service: 12/27/2020 I have interviewed and examined the patient and discussed with the housestaff. I agree with and edited (in blue) the findings and plan of care as documented in the note above. Stanley Tillman MD Internal Medicine Hospitalist Service 12/27/2020 14:02 * Seeker, MD Js - 12/27/2020 0631 EDT Orthopedic brief foot and ankle note: Foot medical problem: Right foot osteomyelitis near prior transmetatarsal amputation site S: Patient believes right foot is doing better. He continues to have significant left hip pain. He is asking me to reposition his leg to in an adducted position and is incredibly antalgic minor movements. He believes the pain is stable and not worsening. O: Pleasant 60-year-old male attempting to urinate in a urinal. Right foot: Healed transmetatarsal amputation site Quarter sized plantar lateral soft tissue defect which probes to bone. There is a lateral, smaller,soft tissue defect. Palpable dorsalis pedis pulse 5/5 TA, GSC Grossly diminished sensation to light touch A/P: Briefly, Jeff is a pleasant 60-year-old with TBI, grossly uncontrolled T2DM with A1c of 13.9 pending right transtibial amputation. This is my first time meeting the patient this morning, but his continued left hip pain is concerning although has downtrending CRP from 335-219 in the context of5 days of antibiotics which is difficult to interpret. Dry left hip aspiration 12/22. Will obtain MRI of left hip to assess evidence of infection although may be difficult to assess after injection of small amount of Omnipaque 5 days prior. We may be able to perform the transtibial amputation Sunday afternoon, pending OR availability. Js Meza MD 12/28/2020 0:13 * Shelly Garcia, PT - 12/26/2020 1430 EDT [facility] Physical Therapy Contact Note Date of Service: 12/26/2020 PT referral received and evaluation completed. Patient is currently requiring significant assist for functional mobility due to pain in left hip and NWB status of RLE. Patient is well below baseline level of function, and he does not present with adequate mobility to discharge home. Patient with planned right BKA this week, therefore anticipate he will have increased physical needs following surgery. Recommend NICHOLE to facilitate maximal functional outcome. Full note to follow. Shelly aGrcia, PT 12/26/2020 14:30 * Shelly Garcia, PT - 12/26/2020 1430 EDT [facility] Therapy [facility] Physical Therapy Initial Evaluation Note Date of Service: 12/26/2020 Reason for Referral: Evaluate and treat Precautions: Activity as tolerated and Non-weight bearing RLE SUBJECTIVE: My left hip hurts so much because it is full of arthritis. Pain: Location: left hip Intensity: 10/10 (at present) Frequency: constant Quality: Ache/sharp Aggravating factors: mobility Alleviating factors: Rest, medication OBJECTIVE: PatientProfile: Patient is a 60 y.o. male admitted on 12/22/2020 secondary to Ketoacidosis [E87.2] Diabetic foot infection ([facility]) ([facility]) [E11.628, L08.9] Type 2 diabetes mellitus without complication, with long-term current use of insulin ([facility]) ([facility]) [E11.9, Z79.4] Deep vein thrombosis (DVT) of proximal vein of left lower extremity, unspecified chronicity ([facility]) ([facility]) [I82.4Y2] The patient lives at [address] [place] [id number] Per HPI: Jeff Scott is a 60 y.o. 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 ?? Patient states he fell a few days ago and since that time has had significant discomfort in his left leg. Given his history of infections he was concerned and wanted to be evaluated. ?? On arrival to the ED he was found to have a temperature of 38.4 Celsius with significant discomfortof the left lower extremity and a large ulcer on his right foot. ?? Patient states that the ulcer has been present for some time and is not currently bothering him. ?? States that most of his pain is in his left hip and left knee and is difficult to move them which is quite different from his baseline. ?? Denies fevers, chills, chest pain, shortness of breath, nausea, vomiting, abdominal pain, change inurinary and bowel habits. ?? Home environment Lives:with , but they are getting a divorce and he is looking to move out Caregiver Support: No assistance available Equipment Available: walking sticks Home Environment: house Home Layout: One story. Entry stairs: 6 steps no railing or 10-15 steps with railing Prior Level of Function: Independent Services prior to admission: None Work/Leisure: Unemployed Medical/Surgical History: Current: Patient Active Problem List Diagnosis ??? Late effect of intracranial injury (HCC) ??? Craniopharyngioma (HCC-CMS) (HCC) ??? Memory loss due to medical condition ??? Hypothyroidism ??? Osteoarthritis of left hip ??? Acute osteomyelitis of phalanx of foot (HCC-CMS) (HCC) ??? Type 2 diabetes mellitus with diabetic polyneuropathy, with long-term current use of insulin (HCC-CMS) (HCC) ??? Hyperplastic polyp of descending colon ??? Diabetic foot infection (HCC-CMS) (HCC) ??? Acute osteomyelitis of right ankle or foot (HCC-CMS) (HCC) ??? Ketoacidosis ??? Deep vein thrombosis (DVT) of proximal vein of left lower extremity, unspecified chronicity (HCC-CMS) (HCC) ??? Type 2 diabetes mellitus without complication, with long-term current use of insulin (HCC-CMS) (HCC) Past: Past Medical History: Diagnosis Date ??? Arthritis ??? Back pain ??? Diabetes mellitus (HCC) ??? Hypothyroidism ??? Wears glasses Past Surgical History: Procedure Laterality Date ??? BRAIN SURGERY s/p tumor ??? EYE SURGERY ??? FOOT SURGERY Right 03/23/2016 Right partial 2nd toe amputation ??? FOOT SURGERY Right 10/05/2019 I&D, amputation 2nd & 3rd James calvillo Medications: Medications reviewed Arousal, Attention, and Cognition: Orientation: Oriented to person, place, and time Able to follow one-step commands with increased time and repetition Cardiopulmonary: Vital Signs: Activity Heart rate (bpm) Blood Pressure (mmHg) Respiratory rate (breaths/min) Oxygen Sat/ Fractions of inspired Oxygen SPO2/FIO2 % Sitting in recliner 91 135/72 96% on RA Sitting EOB Following ambulation/transfers Integumentary/Anthropometric Characteristics: Palpation/Observation: Skin: dressing to RLE C/D/I Edema: 1+ RLE Posture: Forward head, Protracted shoulders and Thoracic kyphosis Range of Motion and Joint Integrity: Active Range of Motion: Within normal limits except as noted Upper Quarter: Left Upper Extremity: Right Upper Extremity: Cervical Spine: Lower Quarter: Left Lower Extremity: hip flexion passive 90 degrees while sitting at EOB, did not allow active or passive ROM of left hip due to pain RightLower Extremity: transmet amp Lumbar Spine: Muscle Performance: Strength: Formal resistive manual muscle testing not performed due to focus on functional activities at this time. Based on AROM and functional movement strength is as follows: Upper Quarter: Left Upper Extremity: > to 3/5 as demonstrated functionally Right Upper Extremity: > to 3/5 as demonstrated functionally Cervical Spine: > to 3/5 as demonstrated functionally Lower Quarter: Left Lower Extremity: > to 3/5 as demonstrated functionally (active and passive ROM limited by pain, but patient able to weightbearing in standing) Right Lower Extremity: > to 3/5 as demonstrated functionally Lumbar Spine: N/E Sensation, Reflexes, and Nerve Integrity: Light Touch Sensation: Upper Quarter:Intact C2-T1 Lower Quarter: Diminished: below knees Neuromotor Function/Development: Neuropathy bilateral LE's Able to move all limbs in isolation Balance, Mobility, and Gait: Balance: Sitting: Patient can tolerate static sitting at edge of bed with no assistance or loss of balance Standing: Patient requires mod Ax1 to maintain static standing with use of carmelita stedy. Cues for upright posture. Significant difficulty maintaining NWB on RLE. Mobility: Mobility evaluation as follows: Patient received sitting in recliner at initial encounter Rolling: mod Ax1 Sit to supine: mod Ax1 Sit to stand: mod Ax1 to carmelita stedy Stand to sit: mod Ax1 Chair to bed: dependent with use of carmelita stedy. Patient stooped throughout requiring cues for upright posture Gait: NE due to pain and assist required for standing tasks. Self-Care, Home Management, Work, and Leisure: N/E at this time Outcomes: Please refer to individual sections for any outcome measures that were performed Informed Consent: The patient consented to the physical therapy evaluation. The patient agrees to and understands the physical therapy treatment plan and goals. Interventions Completed Today: Physical Therapy today at: 1330 Total treatment time: 30 minutes. Timed code treatment minutes: 10 Intervention included: Therapeutic Activity: During all functional activities noted above this patient was provided with manual assist and education via combination of verbal and demonstration. This was provided to give movement strategies to increase amount of functional activity while decreasing pain, activity effort and work of breathing. Sit<>stand x 3 with max Ax1 progressing toward mod Ax1 at last attempt. Required step hawk cues and increased time for all directions. Static standing in carmelita wasserman for ~10 secs with emphasis on NWB on RLE, patient unable to complete. Patient/Family Education: Topic: Activity pacing/Energy conservation Assistive device/technique Balance Bed mobility Discharge planning Equipment use Precautions/protocol Role of therapy Safety Transfers Learner: patient Method: verbal and demonstration Barriers to Learning: cognitive deficits Outcome: requires assist and needs practice Team Communication: Discussed current level of mobility and recommendations with nursing for assistance with mobility and positioning outside of PT. ASSESSMENT: Physical Therapy Diagnosis: balance deficits, gait impairments, decreased tolerance to activity, impaired functional mobility, generalized deconditioning Physical Therapy Prognosis: Patient was appropriate for skilled PT evaluation and intervention. Based on findings today this patient has good potential to make gains toward prior level of functioning. Patient is currently below baseline level of functional mobility and activity. Evidence supports that early and regular mobilization decreases risks of secondary complications related from immobility and improves overall systemic body function. Skilled intervention by PT with knowledge of disease pathophyslology is indicated to establish and progress mobility and exercise, and provide recommendations for staff and safe discharge planning. Patient is currently requiring significant assist for functional mobility due to pain in left hip and NWB status of RLE.. Patient is well below baseline level of function, and he does not present with adequate mobility to discharge home. Patient with planned right BKA this week, therefore anticipate he will have increased physical needs following surgery. Recommend NICHOLE to facilitate maximal functional outcome. Ultimately, d/c plan is pending patient's progress, tolerance to activity, level of assist available/needed and clinical improvement. Will continue to follow for PT interventions and ongoing d/c planning as needed. Short-Term Goals: N/A ?? Long-Term Goals: 2-4 weeks Bed mobility: patient will be able to perform with min contact assist demonstrating appropriate sequencing/motor planning. Transfers: patient will be able to perform bed to chair transfers with min contact assist with use of appropriate assistive device. Sit<>stand with min contact assist to RW. Wheelchair propulsion: patient will be able to perform wheelchair propulsion for 250 feet with min contact assist. The patient and/or caregiver will be able to recall recommendations. All of the above mobility goals will be performed within vital sign parameters and oxygen saturation > 92%. PLAN: Treatment/Intervention: Physical therapy will be provided by physical therapist and/or physical therapist purchasing assistant when medically appropriate. Frequency: 1-2 times per week Intensity: 15-45 minutes per session Duration: During hospitalization Interventions may include:Therapeutic exercises, Therapeutic activities, Gait training and Neuromuscular re-education Patient/family education: Discharge planning, Equipment, Family training, Precautions, Recommendations, Role of physical therapy/rehabilitation, Safety Further Data: none Recommended Discharge Destination: Sub-acute rehabilitation Recommended Discharge Services: Physical therapy at rehabilitation facility Recommended Equipment Needs: To be determined by next care provider Other recommendations: No other consults recommended at this time Pager: [phone] Shelly Garcia, PT 12/26/2020 14:30 * Blake Staton MD - 12/26/2020 1053 EDT Medicine Progress Note Service Date: 12/26/2020 Admit Date: 12/22/2020 19:00 Reason for Admission: 60 y.o. male admitted with a chief complaint of left leg pain and now with a principal diagnosis of management of severe diabetic right foot wound. 24 Hour Events: Quiet day Subjective/Objective Subjective Mr. Scott is with his cousin this morning. He is still quite stressed about his upcoming surgery, however his fevers have improved and he feels his mentation has improved, cannot remember much of hisfirst two days here. Hip is still intermittently painful, this is his most bothersome symptom. Hopes to get in chair and watch football today. Review of Systems A ten point review of systems was performed and was negative except for pertinent positives noted in the HPI Objective Vital Signs Temp: [36.9 ??C (98.5 ??F)-37.5 ??C (99.5 ??F)] , Heart Rate: [97 BPM] , Resp: [18-20] , BP: (131-137)/(65-76) , SpO2: [93 %-98 %] Physical Exam General appearance: Cooperative, alert Lungs: clear to auscultation bilaterally, non labored breathing Heart: regular rate and rhythm, S1, S2 normal Abdomen: soft, non-tender; bowel sounds normal; no masses, no organomegaly Neurologic: AAO to person and place Extremities: extremities warm, atraumatic, no cyanosis or edema. R foot wrapped in gauze. SCDs in place. L hip tender to palpation Pulses: LLE DP's palpable, RLE not assessed Skin: Skin color, temperature, turgor normal. Is PICC or central line present? No, PICC/Central line not present. Medications - WORKERS' COMPENSATION MAGISTRATE Levothyroxine 112mcg daily - WORKERS' COMPENSATION MAGISTRATE Eliquis 5mg BID - WORKERS' COMPENSATION MAGISTRATE Metformin (holding) - WORKERS' COMPENSATION MAGISTRATE Sitagliptin (holding) - WORKERS' COMPENSATION MAGISTRATE Tramadol 50mg BID PRN - WORKERS' COMPENSATION MAGISTRATE Insulin glargine 45 units sub q nightly - WORKERS' COMPENSATION MAGISTRATE Insulin lispro 10 units sub q with meals (holding) Labs Recent Labs 12/24/20 0944 12/25/20 0803 12/26/20 0809 WBC 13.75* 10.58* 8.75 RBC 3.60* 3.57* 3.73* HGB 10.8* 11.0* 11.7* HCT 30.7* 31.1* 33.3* MCV 85 87 89 MCH 30.0 30.8 31.4 MCHC 35.2 35.4 35.1 PLT 182 216 275 Recent Labs 12/24/20 0944 12/25/20 0803 12/26/20 0809 NA 130* 131* 134* K 3.4* 3.3* 3.5 CL 95* 97 101 CO2 24 25 27 BUN 10 8* 8* CREATININE 0.57* 0.55* 0.55* Glucose: 206/128/161/188/180 Hemoglobin A1C: 13.9 Lab Results Component Value Date CRP 335.3 (H) 12/22/2020 CRPP 11.7 (H) 03/09/201612/23 Bone Biopsy: Preliminary result: moderate Strep agalactiae (Group B) 12/23 Blood Cultures: Preliminary result: Anaerobic bottle positive for MSSA at 18 hours. Aerobic positive for MSSA at 23 hours 12/24 Blood Cultures: Pending Imaging X-ray Left Hip FINDINGS / IMPRESSION: Left hip AP supine and cross table lateral views: There is severe osteoarthrosis involving the left hip joint. Milder degenerative changes noted in the visualized lower most portion of the incompletely imaged left SI joint and along the pubic symphysis. Vasectomy surgical clips are partially imaged. The bones appear diffusely demineralized. The severity the osteopenia reduces radiographic sensitivity for the detection of a subtle or nondisplaced acute fracture if present. Also, with overlying soft tissues obscuring the region of the interest on the crosstable lateral view including the femoralhead and neck. There is a high degree of clinical concern for a radiographically occult fracture CT imaging can beobtained for further assessment. CT Left Hip w/o contrast FINDINGS / IMPRESSION: * No evidence of acute fracture or dislocation. * There are however end-stage degenerative changes in the left hip with severe joint space narrowing resulting in [id number] as well as subchondral sclerosis and cyst formation in addition to exuberant osteophytosis. * Degrees of the normal except at the lateral aspect of the femoral head neck junction which while nonspecific suggest perhaps an underlying element of CAM- type femoroacetabular impingement was related to the severe osteoarthrosis. * Minimal remodeling in the weightbearing portion of the left femoral head without evidence of discrete flattening or collapse of the articular surface to suggest avascular necrosis. * Incidentally noted couple of elongated regions of intramuscular fat along the proximal aspect of the rectus femoris muscle with a couple of tiny foci of calcification, likely sequela from prior muscle injury with fat replacement, the possibility of intramuscular lipoma is less likely. X-Ray Right Foot FINDINGS / IMPRESSION: There are transmetatarsal amputations at the level of the proximal aspects of the first through fifth metatarsals. Plantar skin and subcutaneous soft tissue ulcer at about the level of the transmetatarsal amputations. There is prominent soft tissue swelling surrounding the ulcer and extending throughout the foot.Osseous irregularity at the amputation margins may be postsurgical. If there is a high degree of clinical concern for osteomyelitis then MR imaging can be obtained to further evaluate for this possibility. Degenerative joint changes and calcaneal enthesopathic changes are similar compared to the prior study. Atherosclerotic arterial calcification is again noted. 12/24 TTE Severely dilated RV, reduced RV function. LFEF 65%. Atria normal size. No regurg or stenosis seen. Assessment/Plan Assessment Jeff Scott is a 60 y.o. 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 Sympoms improved with dilaudid and antibiosis. Seen byortho, amputation next week. Ongoing L hip pain from recent fall. Plan Sepsis due to MSSA Bacteremia Osteomyelitis of R foot - s/p debridement by orthopedics in the ED, wound cultures obtained - preliminary read: moderate Strep agalactiae (Group B) - 12/23 blood cultures: preliminary read: MSSA in anaerobic cultures and aerobic cultures - TTE on 12/25 -> no evidence of IE but poor imaging - Consider GAGE if repeat cultures come back positive - ID consulted, appreciate recs - continue cefazolin - f/u 12/24 blood cultures - CBC daily - Wound management by nursing staff - Ortho consulted, appreciate recs - plan for BTK amputation early next week LLE/Hip Pain - Well controlled on current regimen - Tylenol 1000 q6 PRN, WORK[employer] COMPENS[employer] MAGISTRATE tramadol - Robaxin 750mg q4 - lidocaine patch daily - Dilaudid PO 2mg q6 PRN Type 2 Diabetes - WORK[employer]' COMPENSATION MAGISTRATE regimen of 45 units glargine daily with 10 units lispro with meals - Continue 45 units glargine nightly - Insulin aspart 10 units with meals - Target BG 140-180 - Hemaglobin A1C 13.9 - 500cc bolus LR as needed to replete fluid status - Nutrition consulted for dietary recs and patient education, appreciate recs - Vit C 500mg daily - Vit D3 2000 units daily - BMP daily Psychologic Well-Being -Med Psych consult active, will see patient Non active: Ketoacidosis - resolved - BMP daily Deep Vein Thrombosis of the left lower extremity - Diagnosed in August 2020 - Continue WORKERS' COMPENSATION MAGISTRATE apixaban 5mg twice daily Hypothyroidism - continue WORK[employer]' COMPENSATION MAGISTRATE levothyroxine VTE Prophylaxis Continue WORK[employer]' COMPENSATION MAGISTRATE Eliquis Discharge Plan Pending clinical improvement Consults Infectious Disease and Nutrition Blake Staton MD 12/26/2020 19:11 Cosigned by Jeremías Baez MD at 12/26/2020 23:54 EDT Associated attestation - Jeremías Baez MD - 12/26/2020 6035 EDT I interviewed and examined the patient. I have personally reviewed interval events, laboratory data, and imaging. I discussed the case with the inpatient resident team. I agree with findings and planof care as documented by the resident (or have edited in Blue). Jeremías Baez MD * Sachin Venegas MD - 12/26/2020 5622 EDT Orthopedic progress note Problem: Right diabetic foot infection and left hip pain Subjective: Jeff is doing okay this morning. He was resting comfortably in no apparent distress. Upon awakening he was very fixated on his right hip. When he was distracted or thinking about other things he appeared less focused on the left hip and had more pain relief. When asked about his understanding from our conversation yesterday he explained our conversation that he would benefit from a [id number]-[id number] amputation upcoming this week. He denies fevers, chest pain, shortness of breath Objective:BP 131/74 (BP Cuff Location: Left arm, BP Patient Position: Semi fowlers) Pulse 89 Temp 36.9 ??C (98.5 ??F) (Oral) Resp 18 Ht 185.4 cm (73) Wt (!) 115.7 kg (255 lb) SpO2 96% BMI 33.64 kg/m?? Resting comfortably in bed no apparent distress at rest. With palpation of the right foot the patient was in great distress due to left hip pain. When he was signing his consent form he was no longershaky and no longer endorsing any left hip pain Nonlabored breathing Right lower extremity: More pus was expressed off the dorsal part of the foot out the dorsal wound. He has a palpable pulse 5/5 TA, GSC with absent sensation Left lower extremity: SI LT DP, SP, S, S, T Palpable DP pulse 5/5 EHL, FHL, TA 2, GSC 4+/5 quad, hamstring, 2/5 iliopsoas secondary to pain Labs: Na/K/Cl/CO2: 131/3.3/97/25 (12/25 802) BUN/Cr/glu/ALT/AST/amyl/lip: 8/0.55/187/--/--/--/-- (12/25 802) WBC/Hgb/Hct/Plts: 10.58/11.0/31.1/216 (12/25 802) Assessment/plan: Jeff is a 60-year-old male with history of brain tumor status post resection 15 years ago with a TBI, A1c of 13.9, right foot ulcer status post TMA in October [address] Gonzales as well as osteoarthritis of the left hip. He had a diabetic foot wound bone cultures are positive for mixed GPC's and strep agalactiae and staph aureus bacteremia. He is also bacteremic. Infectious disease consulted. We reviewed our discussion from yesterday regarding the benefit of below the knee amputation the patient was consented for below the knee amputation. In regards to the left hip he has severe osteoarthritis without other causes to cause the significant amount of distress that he is in.It appears based on my observations today that there may be some psychologic component to this and agree with the med psych consultation. Consented for Right BKA, marked, but not booked Nonweightbearing right lower extremity, activity as tolerated Agree with antibiotics and infectious disease consultation Tight blood sugar control Okay for diet from orthopedic perspective Encourage ambulation PT eval Plan for below the knee amputation early this week depending on surgeon availability Sachin Venegas MD 12/26/2020 7:22 I am post call today and will be unavailable to answer pages. Please reach out to the orthopedic on-call resident with further questions * Blake Staton MD - 12/25/2020 0757 EDT Images from the original note were not included. Medicine Progress Note Service Date: 12/25/2020 Admit Date: 12/22/2020 19:00 Reason for Admission: 60 y.o. male admitted with a chief complaint of left leg pain and now with a principal diagnosis of management of severe diabetic right foot wound. 24 Hour Events: - Podiatry now following and discussed BTK amputation - Ortho recommending BTK amputation next week, this weekend if decompensating - Med Psych consulted and will see - TTE yesterday -> no evidence of IE but poor image quality; severe RV dilation with severely decreases RV systolic function Subjective/Objective Subjective Mr. Scott is reports he is doing okay this morning. At the time of this interview he had spoken with Podiatry and Ortho, both of who have now informed him that he will need a below the knee amputation of the right foot. He is struggling mentally with this news but is appreciative of the care he is r eceiving. We spoke about the Med Psych consult in place and he is glad to be able to eventually have someone to talk to on their team. In regards to his pain, he reports his left hip pain as an 8/10 now and that the morphine tablets do not help bring it down to a bearable level. We spoke about adjusting his pain medication and he was grateful but expressed worry that he does not want medication so strong that it causes alteration in his mental state. He otherwise reports that he is taking in more water. He was previously withholding due to concern of pain with ambulating to the bathroom but now that he has a jug at the bedside he is drinking more readily. His PO intake has been okay. He otherwise denies nausea, vomiting, SOB, CP, leg pain or swelling. Review of Systems A ten point review of systems was performed and was negative except for pertinent positives noted in the HPI Objective Vital Signs Temp: [36.7 ??C (98.1 ??F)-37.7 ??C (99.8 ??F)] , Heart Rate: [88 BPM-105 BPM] , Resp: [18-22] , BP: (117-129)/(59-72) , SpO2: [95 %-97 %] Physical Exam General appearance: Cooperative, alert Lungs: clear to auscultation bilaterally, non labored breathing Heart: regular rate and rhythm, S1, S2 normal Abdomen: soft, non-tender; bowel sounds normal; no masses, no organomegaly Neurologic: AAO to person and place Extremities: extremities warm, atraumatic, no cyanosis or edema. R foot wrapped in gauze. SCDs in place Pulses: LLE DP's palpable, RLE not assessed Skin: Skin color, temperature, turgor normal. Is PICC or central line present? No, PICC/Central line not present. Medications - WORKERS' COMPENSATION MAGISTRATE Levothyroxine 112mcg daily - WORKERS' COMPENSATION MAGISTRATE Eliquis 5mg BID - WORKERS' COMPENSATION MAGISTRATE Metformin (holding) - WORKERS' COMPENSATION MAGISTRATE Sitagliptin (holding) - WORKERS' COMPENSATION MAGISTRATE Tramadol 50mg BID PRN - WORK[employer]' COMPENSATION MAGISTRATE Insulin glargine 45 units sub q nightly - WORKERS' COMPENSATION MAGISTRATE Insulin lispro 10 units sub q with meals (holding) Labs Recent Labs 12/23/20 0702 12/24/20 0944 12/25/20 0803 WBC 12.88* 13.75* 10.58* RBC 3.77* 3.60* 3.57* HGB 11.5* 10.8* 11.0* HCT 32.6* 30.7* 31.1* MCV 87 85 87 MCH 30.5 30.0 30.8 MCHC 35.3 35.2 35.4 PLT 215 182 216 Recent Labs 12/23/20 0314 12/23/20 0804 12/24/20 0944 NA 129* 129* 130* K 3.9 3.1* 3.4* CL 95* 100 95* CO2 22 17* 24 BUN 18 16 10 CREATININE 0.69 0.53* 0.57* Glucose: 206/128/161/188/180 Hemoglobin A1C: 13.9 Lab Results Component Value Date CRP 335.3 (H) 12/22/2020 CRPP 11.7 (H) 03/09/201612/23 Bone Biopsy: Preliminary result: moderate Strep agalactiae (Group B) 12/23 Blood Cultures: Preliminary result: Anaerobic bottle positive for MSSA at 18 hours. Aerobic positive for MSSA at 23 hours 12/24 Blood Cultures: Pending Imaging X-ray Left Hip FINDINGS / IMPRESSION: Left hip AP supine and cross table lateral views: There is severe osteoarthrosis involving the left hip joint. Milder degenerative changes noted in the visualized lower most portion of the incompletely imaged left SI joint and along the pubic symphysis. Vasectomy surgical clips are partially imaged. The bones appear diffusely demineralized. The severity the osteopenia reduces radiographic sensitivity for the detection of a subtle or nondisplaced acute fracture if present. Also, with overlying soft tissues obscuring the region of the interest on the crosstable lateral view including the femoralhead and neck. There is a high degree of clinical concern for a radiographically occult fracture CT imaging can beobtained for further assessment. CT Left Hip w/o contrast FINDINGS / IMPRESSION: * No evidence of acute fracture or dislocation. * There are however end-stage degenerative changes in the left hip with severe joint space narrowing resulting in pizv-of-dsco as well as subchondral sclerosis and cyst formation in addition to exuberant osteophytosis. * Degrees of the normal except at the lateral aspect of the femoral head neck junction which while nonspecific suggest perhaps an underlying element of CAM- type femoroacetabular impingement was related to the severe osteoarthrosis. * Minimal remodeling in the weightbearing portion of the left femoral head without evidence of discrete flattening or collapse of the articular surface to suggest avascular necrosis. * Incidentally noted couple of elongated regions of intramuscular fat along the proximal aspect of the rectus femoris muscle with a couple of tiny foci of calcification, likely sequela from prior muscle injury with fat replacement, the possibility of intramuscular lipoma is less likely. X-Ray Right Foot FINDINGS / IMPRESSION: There are transmetatarsal amputations at the level of the proximal aspects of the first through fifth metatarsals. Plantar skin and subcutaneous soft tissue ulcer at about the level of the transmetatarsal amputations. There is prominent soft tissue swelling surrounding the ulcer and extending throughout the foot.Osseous irregularity at the amputation margins may be postsurgical. If there is a high degree of clinical concern for osteomyelitis then MR imaging can be obtained to further evaluate for this possibility. Degenerative joint changes and calcaneal enthesopathic changes are similar compared to the prior study. Atherosclerotic arterial calcification is again noted. 12/24 TTE Assessment/Plan Assessment Jeff Scott is a 60 y.o. 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 In the ED he underwent a dry athrocentesis of the left hip with the orthopedics team which makes septic arthritis of this joint quite unlikely. The ulceration of his right foot is likely the source of his acute fever and leukocytosis on admission. Preliminary bone biopsy results indicate many gram positive organisms present. Preliminary blood cultures returned MSSA in the anaerobic and gram positives resembling staph in the aerobic bottles at 18 and 23 hours respectively. ID is following and recommended d/c of Flagyl, vancomycin, and ceftriaxone and starting cefazolin at 2g q8hrs. Bone biopsycultures returned positive for Strep agalactiae on 12/25. Will touch base with ID regarding recommendations for antibiotic management. Both Podiatry and Ortho have now spoken with the patient and informed him that he will need a below the knee amputation. Ortho will schedule for next week but will move forward with emergent guillotine amputation if he clinically decompensates. Will continue to manage infection per ID recs and assist patient with coping and mental health in light of new recommendations for amputation. Med psych has been consulted and will follow up with the patient when able. TTE on 12/24 was negative for evidence of valvular vegetations. Will touch base with ID regarding desire for GAGE. In regards to the management of his diabetes, his glucose is down-trending and his metabolic acidosis has resolved. Will continue to trend BMP and monitor clinical improvement as his PO intake increases. He is otherwise hemodynamically stable at this time. Plan Sepsis due to MSSA Bacteremia Osteomyelitis of R foot - s/p debridement by orthopedics in the ED, wound cultures obtained - preliminary read: moderate Strep agalactiae (Group B) - 12/23 blood cultures: preliminary read: MSSA in anaerobic cultures and aerobic cultures - TTE on 12/25 -> no evidence of IE but poor imaging - Consider GAGE if repeat cultures come back positive - ID consulted, appreciate recs - oontinue cefazolin - f/u 12/24 blood cultures - no changes to plan at this time - CBC daily - Wound management by nursing staff - Ortho consulted, appreciate recs - will need BTK amputation early next week - if condition acutely worsens, will need guillotine amputation emergently LLE/Hip Pain - Well controlled on current regimen - Tylenol 1000 q6 PRN, WORKERS' COMPENSATION MAGISTRATE tramadol - Robaxin 750mg q4 - lidocaine patch daily - d/c Morphine 15mg PO q4 PRN - Dilaudid PO 2mg q6 PRN Type 2 Diabetes - WORKERS' COMPENSATION MAGISTRATE regimen of 45 units glargine daily with 10 units lispro with meals - Continue 45 units glargine nightly - Hold WORKERS' COMPENSATION MAGISTRATE lispro - Insulin aspart 10 units with meals - Target BG 140-180 - Hemaglobin A1C 13.9 - 500cc bolus LR as needed to replete fluid status - Nutrition consulted for dietary recs and patient education, appreciate recs - Vit C 500mg daily - Vit D3 2000 units daily - BMP daily - replete electrolytes PRN Psychologic Well-Being -Med Psych consult active, will see patient Non active: Ketoacidosis - resolved - BMP daily Deep Vein Thrombosis of the left lower extremity - Diagnosed in August 2020 - Continue WORKERS' COMPENSATION MAGISTRATE apixaban 5mg twice daily Hypothyroidism - continue WORKERS' COMPENSATION MAGISTRATE levothyroxine VTE Prophylaxis Continue WORKERS' COMPENSATION MAGISTRATE Eliquis Discharge Plan Pending clinical improvement Consults Infectious Disease and Nutrition URI MILLER 12/25/2020 8:48 I was present or discussed the history, exam, and medical decision making documented with the medical student. I have edited the medical student note as appropriate. Blake Staton MD 12/25/2020 12:11 Cosigned by Jeremías Baez MD at 12/25/2020 23:33 EDT Associated attestation - Jeremías Baez MD - 12/25/2020 9943 EDT I interviewed and examined the patient. I have personally reviewed interval events, laboratory data, and imaging. I discussed the case with the inpatient resident team. I agree with findings and planof care as documented by the resident (or have edited in Blue). Jeremías Baez MD * Sachin Venegas MD - 12/25/2020 8921 EDT Orthopedic progress note Problem: Right diabetic foot infection and left hip pain Subjective: Jeff still having a lot of discomfort in his left hip. He says that he is better todaythan he was yesterday but still in a lot of discomfort. Currently comfortable in his resting position. He could not recall the conversation that he had with Dr. Gonzales nor could he remember who Dr. Gonzales was but was eventually able to explain that the 2 of them had a conversation about below the knee amputation for infection of his right foot. Currently the foot is not bothering him and he denies fevers, chest pain, or shortness of breath Objective:BP 129/72 (BP Cuff Location: Left arm, BP Patient Position: Semi fowlers) Pulse 101 Temp 36.7 ??C (98.1 ??F) (Oral) Resp 22 Ht 185.4 cm (73) Wt (!) 115.7 kg (255 lb) SpO2 97% BMI 33.64 kg/m?? Resting comfortably in bed in no apparent distress. Worsening discomfort with passive movement of the left hip Nonlabored breathing Right lower extremity He has area of fluctuance over the dorsal part of the fourth and fifth webspace with friable skin. The blunt probe was able to create a soft tissue defect and I expressed about 5-10 cc of pus from the foot. He has a palpable pulse. 5/5 TA, GSC with absent sensation Left lower extremity SI LT DP, SP, S, S, T Palpable DP pulse 5/5 EHL, FHL, TA, GSC 4+/5 quad, hamstring, 2/5 iliopsoas secondary to pain Labs: Na/K/Cl/CO2: 130/3.4/95/24 (12/25 943) BUN/Cr/glu/ALT/AST/amyl/lip: 10/0.57/174/--/--/--/-- (12/25 943) WBC/Hgb/Hct/Plts: 13.75/10.8/30.7/182 (12/25 943) Assessment/plan: Jeff is a 60-year-old male with history of brain tumor status post resection 15 years ago with a TBI, A1c of 13.9, right foot ulcer status post TMA in October [address] Gonzales as well has osteoarthritis of the left hip. He had a diabetic foot wound. Bone cultures positive for mixed GPC's and strep Avelox they. He is also bacteremic. Infectious disease was consulted. This morning I was able to express pus from his wound. We reviewed the conversation he had with Dr. Gonzales yesterday regarding ongoing debridement. In order to assist with medical management of his infected footand his bacteremia in order to gain source control the patient would benefit from a below the knee a mputation. The patient became very tearful when this was discussed. Pointed to the mid part of his jo and explicitly explained the location of where his amputation would be and the purpose of this surgery. Given that his vitals are stable this does not need to be done emergently. We will plan to do it at the beginning of next week however if he were to acutely get worse he could potentially have a guillotine amputation this weekend. After our discussion the patient was more open to this option however was still very resistant. We will continue to give him time and review our conversations daily to assist medicine service with wound care management of his right lower extremity. In regards to his left hip he did not have any fluid collection and had a dry tap and a CT scan did not show abnormal pathology other than the severe osteoarthritis. He is doing better with multimodal pain control and we encouraged that he continues to gradually increase his range of motion of his hip to help with his discomfort. Nonweightbearing right lower extremity, activity as tolerated Agree with antibiotics infectious disease consultation Tight blood sugar control Okay for diet from orthopedic perspective Encourage ambulation PT eval Plan for below the knee amputation early next week depending on surgeon availability Sachin Venegas MD 12/25/2020 7:58 * Angelina Gonzales, DPM - 12/24/2020 1354 EDT S: Saw Mr. Scott at bedside this afternoon. Have been following as outpatient most recently for a plantar 5th metatarsal stump ulcer at his TMA site. See ortho consult note for full details. Mr. Scott reports not feeling well this afternoon. Does have some pain in the foot. Also pain in next and hip after a fall prior to admission. Denies fever, chills, nausea, vomiting currently. Vitals: 12/24/20 0529 12/24/20 0618 12/24/20 0640 12/24/20 1240 BP: 111/59 126/53 124/62 BP Cuff Location: Right arm Left arm Left arm BP Patient Position: Semi fowlers Semi fowlers Semi fowlers Pulse: Resp: 18 18 19 Temp: 36.8 ??C (98.2 ??F) 37.1 ??C (98.7 ??F) 36.9 ??C (98.4 ??F) TempSrc: Oral Oral Oral SpO2: 95% 94% 96% 96% Weight: Height: Objective: General: AO x 3, NAD Lower Extremity Problem Focused Exam: RLE: Palpable pedal pulses. TMA right foot. Ulcer plantar lateral foot, over 5th metatarsal stump. Probes to bone. Malodorous. Fluctuant area dorsally, over 5th metatarsal stump. Purulence expressed on decompression. Does not probe proximally or medially. Edema and erythema to foot. Sensation diminished. Labs: Lab Results Component Value Date WBC 13.75 (H) 12/24/2020 HGB 10.8 (L) 12/24/2020 HCT 30.7 (L) 12/24/2020 MCV 85 12/24/2020 PLT 182 12/24/2020 Lab Results Component Value Date SEDRATE >100 (H) 12/22/2020 Lab Results Component Value Date CRP 335.3 (H) 12/22/2020 CRPP 11.7 (H) 03/09/2016 Imaging/Micro/Path: Blood cultures 12/23: MSSA Blood cultures 12/24: Pending Bone cultures 12/23: Group B strep Xray foot 12/22: No soft tissue emphysema. Soft tissue swelling. Assessment/Plan: 60 yo male with poorly controlled DM, short term memory loss s/p brain tumor resection 15 years ago, right TMA 10/2019, now with infection right foot ulcer with osteomyelitis and abscess. -Abscess drained at bedside this afternoon. Ulcer probes dorsally around 5th metatarsal. -Discussed with Mr. Scott. Given new worsening ulcer, osteomyelitis, abscess, will likely require abelow knee amputation. Amount of debridement to clear the infection will not leave him with a functional foot. He needs some time to consider this and will continue to ask questions as he has time toprocess this. -Will continue with antibiotics per ID recs. -Will continue with close monitoring and dressing changes. Recommend increasing frequency to 2x/day. Ortho to see in am. -Discussed with orthopedics, who will continue to closely monitor over the weekend. -Continue NWB to right foot. -Please page with any questions. * Robbie Brown MD - 12/24/2020 1205 EDT Images from the original note were not included. INFECTIOUS DISEASES PROGRESS NOTE Patient: Jeff Scott : 1960 Service: Medicine Date of Admission: 12/22/2020 Follow-up for: MSSA bacteremia, DFI Interval events: blood cultures w/ GPC resemb staph and MSSA SUBJECTIVE: uneventful night. Slept pretty well. Left hip is still very painful. No other areas of pain. Tolerating antibiotics without rash or diarrhea. Breathing fine. No headache, vision changes, dysuria. REVIEW OF SYSTEMS: 10-point review of systems is negative except as mentioned in the HPI and as noted here. ALLERGIES: No Known Allergies MEDICATIONS: Reviewed in MAY. Anti-infectives: Cefepime 12/23 - Ceftriaxone 12/23 - Vancomycin 12/23 - Metronidazole 12/23 - PHYSICAL EXAM: VS: BP 126/53 (BP Cuff Location: Left arm, BP Patient Position: Semi fowlers) Pulse 101 Temp 37.1 ??C (98.7 ??F) (Oral) Resp 18 Ht 185.4 cm (73) Wt (!) 115.7 kg (255 lb) SpO2 96% BMI 33.64 kg/m?? GENL: pleasant, though intermittently in distress due to pain EENT: sclerae anicteric, moist mucous membranes, no ulcers NECK: supple CARD: RRR, accentuated physiologic splitting of S2, no murmur PULM: clear to auscultation bilaterally ABDM: non-distended, soft, non-tender MSK: no joint swelling or erythema EXTR: warm and well perfused, no edema, right foot wrapped and not examined today SKIN: cut on right hand and a few on legs, no rashes, no jaundice NEURO: awake, alert and oriented x3, no focal deficit ACCESS: bilateral upper extremity PIVs LABORATORY: Reviewed in detail in PRISM. WBC/RBC/HGB/HCT/PLT/ANC13.75/3.60/10.8/30.7/182/-- (12/25 943) Estimated Creatinine Clearance: 185.9 mL/min (A) (by C-G formula based on SCr of 0.57 mg/dL (L)). MICROBIOLOGY DATA: Reviewed in detail in PRISM. Pertinent for: 12/23 bone culture: few polys, many mixed GPs 12/23 blood: GPC resembling staph in 03/06 22.9h, MSSA in 1 18h IMAGING DATA: personally reviewed 12/22 right foot radiographs: There are transmetatarsal amputations at the level of the proximal aspects of the first through fifth metatarsals. Plantar skin and subcutaneous soft tissue ulcer at about the level of the transmetatarsal amputations. There is prominent soft tissue swelling surrounding the ulcer and extending throughout the foot.Osseous irregularity at the amputation margins may be postsurgical. If there is a high degree of clinical concern for osteomyelitis then MR imaging can be obtained to further evaluate for this possibility. Degenerative joint changes and calcaneal enthesopathic changes are similar compared to the prior study. Atherosclerotic arterial calcification is again noted. 12/[address] w/o contrast: * No evidence of acute fracture or dislocation. * There are however end-stage degenerative changes in the left hip with severe joint space narrowing resulting in [id number] as well as subchondral sclerosis and cyst formation in addition to exuberant osteophytosis. * Degrees of the normal except at the lateral aspect of the femoral head neck junction which while nonspecific suggest perhaps an underlying element of CAM- type femoroacetabular impingement was related to the severe osteoarthrosis. * Minimal remodeling in the weightbearing portion of the left femoral head without evidence of discrete flattening or collapse of the articular surface to suggest avascular necrosis. * Incidentally noted couple of elongated regions of intramuscular fat along the proximal aspect of the rectus femoris muscle with a couple of tiny foci of calcification, likely sequela from prior muscle injury with fat replacement, the possibility of intramuscular lipoma is less likely. * There is osteopenia. * Note made of vasectomy clips. A tiny focus of air in the subcutaneous soft tissues of the left inguinal region likely relates to prior injection. * Small fat-containing inguinal hernias. ASSESSMENT: 1. High-grade MSSA bacteremia. Community-onset. Presumably from right foot DFI though does have other cuts and scrapes on his body as potential portals of entry. 2. Right foot diabetic foot infection and osteomyelitis. Bone culture by ortho w/ mixed GPs. 3. Ongoing severe left hip pain. Dry tap by ortho and CT without fluid collection, fracture. [place] to be OA flare by ortho. 4. Elevated inflammatory markers 5. Fever, leukocytosis. 6. Diabetes w/ DKA 7. Has TBI RECOMMENDATIONS: 1. D/C vanco, cefepime, metronidazole 2. Start cefazolin 2 grams every 8 hours 3. Will need repeat blood cultures and TTE 4. Will follow-up bone biopsy Recommendations discussed with primary team Thank you for asking us to participate in this patient's care. Please call with questions or concerns. Robbie Brown MD Infectious Disease Attending 12/24/2020 12:05 * Murray Tavares - 12/24/2020 0933 EDT Initial Case Management/Social Work Assessment and Discharge Plan/Readmission Risk Assessment REASON FOR ADMISSION: Diabetic foot infection (HCC-CMS) ([facility]) Patient understands reason for admission: Yes PATIENT INFO VERIFIED: PCP, Contact Info, Address Type of housing (single family, condo, apartment, half-way, single room occupancy, [facility] funded hotel room, group fpc) - [facility] Who does the patient live with? spouse Does the patient have access to their own bedroom/bathroom/kitchen - or is it shared with others? shared Name of housing complex (ex [facility], [facility], etc)- n/a Housing Authority/Managing Organization - n/a Community Care Providers (manager of case, [facility] nurse, etc) name and contact information- n/a LIVING ARRANGEMENTS AND ACCESSIBILITY ISSUES: Living Arrangements: Alone, Private residence Levels: 1 Stairs to enter: 4 or more (6-8 steps no railing/ 10-14 at garage w/ railing) Handicap access: None Bathroom located on bedroom level?: Yes What in home social supports are available to the patient? Friends / neighbors Is 24/7 care available? No ADVANCED DIRECTIVES, POA &/or COLST IN PLACE: Healthcare Directive: No, patient does not have advance directive for healthcare treatment Information Provided on Healthcare Directives: No Information on Healthcare Directives Requested: No DIRECTIVES FOR FINANCES: Directive For Finances: No TRANSPORTATION: Transportation: Family Transportation Additional Details: Friends vs transportation assistance Patient expects to be discharged to: Home then apartment CULTURAL, MANDAEISM and/or LANGUAGE factors affecting health care/discharge planning: Spiritual/Cultural Requests: [employer] support Insurance Information: Medical Insurance: Yes Type of insurance: Medicare, Commercial insurance Medicare type: A Commercial coverage: BCBS[place] Referred to patient financial services: No Nutrition: DISCHARGE RISK ASSESSMENT: Lives at home with limited or no community support;Repeat hospitalizations/ED visits Total # selected above: Score of 1 - 2: This patient is at LOW RISK for re-hospitalization Tentative plan to address the risk of re-hospitalization for those at HIGH MODERATE RISK: RAPT TOOL: Age: 50-65 Gender: Male Ambulation distance: 1-2 blocks Gait device: Single point device Community Services: Home health, MOW, SASH-none of one time a week Will you live with someone who will care for you?: No RAPT Tool Score: 7 Patient expects to be discharged to: Home then apartment SBIRT: SASQ (Single Alcohol Screening Question) How many times in the past year have you had 5 or more drinks in a single day?: Never How many times in the past year have you used an illegal drug or used a prescription medication fornon-medical reasons?: Never Intervention in place/initiated?: No, not indicated FUNCTIONAL STATUS: Activities patient requires assistance: None Assistive Device: Front wheel walker, Cane COMMUNITY RESOURCES/SUPPORTS: Primary Care Provider: Jason Batres PCP Verified: Specialists: Oncology, Orthopedics Type of Home Health Services: None DME Provider: [facility] Pharmacy: [id number] - [place], [place] - [address] [place] [address] [place] [address] Home Health: Other: POST HOSPITAL TRANSITION PLAN: CM met with patient this morning, lives currently with spouse in a single level home with 6-8 steps to enter on the front with no railing or has the option of 10-14 steps with a railing from garage. Patient states he is going through a divorce right now and spouse, Nguyen, is not going to be able to provide much care or assistance. Patient states he has some friends in the area and is planning to locate an apartment to move to soon. States he will most likely returnto his current home, possibly will need assistance with transportation home. Patient utilizes a front wheeled walker during inclement weather but typically uses hiking sticks. Currently does not drive, stated he would be working on this when he returns home. Hoping to move to an apartment with a roommate that he can rely on for assistance if needed. No home health currently, offered Advance Directive paperwork, declined at this time. CM will follow up closer to discharge with any other concerns. MURRAY TAVARES 12/24/2020 9:33 * Blake Staton MD - 12/24/2020 0749 EDT Medicine Progress Note Service Date: 12/24/2020 Admit Date: 12/22/2020 19:00 Reason for Admission: 60 y.o. male admitted with a chief complaint of left leg pain and now with a principal diagnosis of management of severe diabetic right foot wound. 24 Hour Events: - CT non-con left hip - Preliminary blood cultures: - anaerobic bottle positive for MSSA at 18 hours - aerobic bottle positive for gram pos cocci resembling staph at 23 hours - Preliminary bone biopsy cultures: positive for many mixed gram positives - Febrile to tmax of 38.5 o/n, now resolved - Lorazepam x1 o/n for anxiety Subjective/Objective Subjective Mr. Scott states that he is doing okay this morning. He states he was able to get out of bed and walk a little yesterday, but it was painful to do so. While resting in bed, he states his pain is bearable. He has not had anything to eat but he states he is feeling hungry at this time. He has been drinking water and tolerating it without nausea. He has no pain in his right foot at this time. He is struggling with his recent divorce proceedings but states that he feels well taken care of by the hospital team and is appreciative of the positive attitudes the staff have had around him. He deniesnausea, vomiting, chest pain, shortness of breath, fevers, or chills. He is otherwise stable at this time. Review of Systems A ten point review of systems was performed and was negative except for pertinent positives noted in the HPI Objective Vital Signs Temp: [36.4 ??C (97.6 ??F)-38.5 ??C (101.3 ??F)] , Heart Rate: [99 BPM-114 BPM] , Resp: [18-20] , BP: (105-143)/(53-74) , SpO2: [94 %-99 %] Physical Exam General appearance: moderately uncomfortable appearing male, cooperative, alert Lungs: clear to auscultation bilaterally, non labored breathing Heart: regular rate and rhythm, S1, S2 normal Abdomen: soft, non-tender; bowel sounds normal; no masses, no organomegaly Neurologic: AAO to person and place only Extremities: extremities warm, atraumatic, no cyanosis or edema. R foot wrapped in gauze. See orthopedic note for image of wound Pulses: LLE DP's palpable, RLE tibial pulses palpable Skin: Skin color, temperature, turgor normal. Is PICC or central line present? No, PICC/Central line not present. Medications - WORKERS' COMPENSATION MAGISTRATE Levothyroxine 112mcg daily - WORKERS' COMPENSATION MAGISTRATE Eliquis 5mg BID - WORKERS' COMPENSATION MAGISTRATE Metformin (holding) - WORKERS' COMPENSATION MAGISTRATE Sitagliptin (holding) - WORKERS' COMPENSATION MAGISTRATE Tramadol 50mg BID PRN - WORKERS' COMPENSATION MAGISTRATE Insulin glargine 45 units sub q nightly - WORKERS' COMPENSATION MAGISTRATE Insulin lispro 10 units sub q with meals (holding) Labs Recent Labs 12/22/205 12/23/20 0702 12/24/20 0944 WBC 14.68* 12.88* 13.75* RBC 3.94* 3.77* 3.60* HGB 12.3* 11.5* 10.8* HCT 34.7* 32.6* 30.7* MCV 88 87 85 MCH 31.2 30.5 30.0 MCHC 35.4 35.3 35.2 PLT 200 215 182 Recent Labs 12/23/20 0314 12/23/20 0804 12/24/20 0944 NA 129* 129* 130* K 3.9 3.1* 3.4* CL 95* 100 95* CO2 22 17* 24 BUN 18 16 10 CREATININE 0.69 0.53* 0.57* Glucose: 305/319/298/221/174 Hemoglobin A1C: 13.9 Lab Results Component Value Date CRP 335.3 (H) 12/22/2020 CRPP 11.7 (H) 03/09/201612/23 Bone Biopsy: Preliminary result: many mixed gram positive organisms 12/23 Blood Cultures: Preliminary result: Anaerobic bottle positive for MSSA at 18 hours. Aerobic positive for gram positives resembling staph at 23 hours Imaging X-ray Left Hip FINDINGS / IMPRESSION: Left hip AP supine and cross table lateral views: There is severe osteoarthrosis involving the left hip joint. Milder degenerative changes noted in the visualized lower most portion of the incompletely imaged left SI joint and along the pubic symphysis. Vasectomy surgical clips are partially imaged. The bones appear diffusely demineralized. The severity the osteopenia reduces radiographic sensitivity for the detection of a subtle or nondisplaced acute fracture if present. Also, with overlying soft tissues obscuring the region of the interest on the crosstable lateral view including the femoralhead and neck. There is a high degree of clinical concern for a radiographically occult fracture CT imaging can beobtained for further assessment. CT Left Hip w/o contrast FINDINGS / IMPRESSION: * No evidence of acute fracture or dislocation. * There are however end-stage degenerative changes in the left hip with severe joint space narrowing resulting in [id number] as well as subchondral sclerosis and cyst formation in addition to exuberant osteophytosis. * Degrees of the normal except at the lateral aspect of the femoral head neck junction which while nonspecific suggest perhaps an underlying element of CAM- type femoroacetabular impingement was related to the severe osteoarthrosis. * Minimal remodeling in the weightbearing portion of the left femoral head without evidence of discrete flattening or collapse of the articular surface to suggest avascular necrosis. * Incidentally noted couple of elongated regions of intramuscular fat along the proximal aspect of the rectus femoris muscle with a couple of tiny foci of calcification, likely sequela from prior muscle injury with fat replacement, the possibility of intramuscular lipoma is less likely. X-Ray Right Foot FINDINGS / IMPRESSION: There are transmetatarsal amputations at the level of the proximal aspects of the first through fifth metatarsals. Plantar skin and subcutaneous soft tissue ulcer at about the level of the transmetatarsal amputations. There is prominent soft tissue swelling surrounding the ulcer and extending throughout the foot.Osseous irregularity at the amputation margins may be postsurgical. If there is a high degree of clinical concern for osteomyelitis then MR imaging can be obtained to further evaluate for this possibility. Degenerative joint changes and calcaneal enthesopathic changes are similar compared to the prior study. Atherosclerotic arterial calcification is again noted. Assessment/Plan Assessment Jeff Scott is a 60 y.o. 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 In the ED he underwent a dry athrocentesis of the left hip with the orthopedics team which makes septic arthritis of this joint quite unlikely. The ulceration of his right foot is likely the source of his acute fever and leukocytosis on admission. Preliminary bone biopsy results indicate many gram positive organisms present. Preliminary blood cultures returned MSSA in the anaerobic and gram positives resembling staph in the aerobic bottles at 18 and 23 hours respectively. ID is following and recommended d/c of Flagyl, vancomycin, and ceftriaxone and starting cefazolin at 2g q8hrs. Will repeatblood cultures today to assess for ability to place PICC line for anticipated at-home antibiotic man agement post-discharge. Will order TTE to assess for endocarditis in light of MSSA bacteremia. In regards to the management of his diabetes, his glucose is down-trending and his metabolic acidosis has resolved. Will continue to trend BMP and monitor clinical improvement as his PO intake increases. In regards to patient mental health, may consider med psych consult once patient's mental status has stabilized for anxiety regarding his current disease and potential clinical complications as well as anxiety in social situation surrounding his divorce proceedings. He is otherwise hemodynamically stable at this time. Plan Sepsis due to MSSA Bacteremia Osteomyelitis of R foot - s/p debridement by orthopedics in the ED, wound cultures obtained - preliminary read: many gram positive organisms present - 12/23 blood cultures: preliminary read: MSSA in anaerobic cultures, gram pos cocci resembling staph in aerobic cultures - TTE today to evaluate for endocarditis - ID consulted, appreciate recs - d/c vanc, flagyl, ceftriaxone - start cefazolin 2g q8hrs - Repeat blood cultures today - CBC daily - Wound management by nursing staff LLE/Hip Pain - Well controlled on current regimen - Tylenol 1000 q6 PRN, WORKERS' COMPENSATION MAGISTRATE tramadol - Robaxin 750mg q4 - lidocaine patch daily - Morphine 15mg PO q4 PRN Type 2 Diabetes - WORKERS' COMPENSATION MAGISTRATE regimen of 45 units glargine daily with 10 units lispro with meals - Continue 45 units glargine nightly - Hold WORKERS' COMPENSATION MAGISTRATE lispro - Insulin aspart 10 units with meals - Target BG 140-180 - Hemaglobin A1C 13.9 - 500cc bolus LR as needed to replete fluid status - Nutrition consulted for dietary recs and patient education - BMP daily - replete electrolytes PRN Non active: Ketoacidosis - resolved - BMP daily Deep Vein Thrombosis of the left lower extremity - Diagnosed in August 2020 - Continue WORKERS' COMPENSATION MAGISTRATE apixaban 5mg twice daily Hypothyroidism - continue WORKERS' COMPENSATION MAGISTRATE levothyroxine VTE Prophylaxis Continue WORKERS' COMPENSATION MAGISTRATE Eliquis Discharge Plan Pending clinical improvement Consults Infectious Disease and Nutrition URI MILLER 12/24/2020 10:55 Cosigned by Jeremías Baez MD at 12/24/2020 23:32 EDT Associated attestation - Jeremías Baez MD - 12/24/2020 2332 EDT I interviewed and examined the patient. I have personally reviewed interval events, laboratory data, and imaging. I discussed the case with the inpatient resident team. I agree with findings and planof care as documented by the resident (or have edited in Blue). Jeremías Baez MD * Sachin Venegas MD - 12/24/2020 0630 EDT Orthopedic progress note Problem: Right diabetic foot wound and left hip pain Subjective: Jeff feels he is doing better this morning. He says that his hip feels fantastic. Hedenies fevers, chest pain, shortness of breath Objective:BP 126/53 (BP Cuff Location: Left arm, BP Patient Position: Semi fowlers) Pulse 101 Temp 37.1 ??C (98.7 ??F) (Oral) Resp 18 Ht 185.4 cm (73) Wt (!) 115.7 kg (255 lb) SpO2 94% BMI 33.64 kg/m?? Temperature as high as 38.5 yesterday Sleeping comfortably in bed in no apparent distress Nonlabored breathing Right lower extremity The dressing was removed. He had 1 area of brisk bleeding within the debridement which was controlled with pressure however there was no purulent drainage Absent incision over the dorsal and plantar foot to the level of his ankle He has a palpable pulse 5/5 TA, GSC Left lower extremity SI LT DP, SP, S, S, T Palpable DP pulse 5/5 EHL, FHL, TA, GSC 4+/5 quad, hamstring, 2/5 iliopsoas secondary to pain Labs: Na/K/Cl/CO2: 129/3.1/100/17 (12/24 803) BUN/Cr/glu/ALT/AST/amyl/lip: 16/0.53/305/--/--/--/-- (12/24 803) WBC/Hgb/Hct/Plts: 12.88/11.5/32.6/215 (12/23 701) Assessment/plan: Jeff is a 60-year-old male with history of a brain tumor status post resection 15years ago with a TBI, hemoglobin A1c of 13.9, right foot ulcer status post TMA in October [address] Gonzales and osteoarthritis of the left hip who presented with a right diabetic foot wound which was debrided in the emergency department. Bone cultures were positive for mixed GPC's. He also has GPC likely staph bacteremia for which infectious disease was consulted. Patient is on vancomycin, ceftriaxone, and metronidazole. The likely source of the bacteremia is likely from his foot wound which wasdebrided in the emergency department. In regards to his left hip his exam is unchanged from yesterday as he still having long discomfort with range of motion. We reviewed his exam, as well as his CT scan which did not demonstrate any fluid collections and severe osteoarthritis. We believe that the source of his hip pain is related to an osteoarthritic flare. The patient is not a candidate for a hip replacement because of his infected diabetic foot wound, and elective total hip arthroplasties are performed on outpatient elective basis. We will continue to assist medicine service with wound care management for the patient's right lower extremity. Nonweightbearing right lower extremity, activity as tolerated Agree with antibiotics and infectious disease consultation agree with tight blood sugar control Okay for diet from an orthopedic subjective Encourage ambulation, SCDs for DVT prophylaxis PT eval Pending the patient's response to medical management, the patient may require further debridement/amputation for which he is not open to at this time. We will continue to have ongoing discussions with the patient if he appears to be trending in a worsening direction Sachin Venegas MD 12/24/2020 6:41 * Hilton Murillo RN - 12/24/2020 0105 EDT D: Patient admitted from Home then Ed, then to M6 unit and admission database was completed. A: (Rosita 1) and (Renan 2) performed a complete assessment of the patient's skin on admission and pt has blanching redness on back and sacrum (mepilex applied), healing scab on R hand, and scattered healing scratches on LLE. Pt here with on diabetic ulcer on RLE ortho placed dressing. R: Will continue to monitor skin integrity and if Ravi Scale is below 18 will implement the q2 hour pink paper initiative * Mandy Rose RPH - 12/23/2020 1559 EDT Pharmacy note: Vancomycin Monitoring - Initial Note Jeff Scott is a 60 y.o. y/o male who has been ordered to receive vancomycin 1750 mg IV q12H for the treatment of DM foot infection and osteomyelitis. Other antibiotics include: CTX 2 g daily Metronidazole 500 mg q8H 24 hour vitals and labs: Tmax: 37.3 BUN/SCr: 16 / 0.53 WBC: 12.88 1) Based on patient???s weight and estimated renal function, the initial order may produce a vancomycin trough concentration within the target range of 10-15 mcg/mL - per ID 2) Per Pharmacy and therapeutics committee, will continue vancomycin 1750 mg q 12H 3) Pharmacy will measure a vancomycin trough concentration on 12/24 @ 1600, or sooner if worsening renal function. 4) Pharmacy will continue to monitor patient clinical status daily and evaluate the trough concentration when result available Mandy Rose, PharmJacob Cortext * Uri Miller - 12/23/2020 0882 EDT Medicine Progress Note Service Date: 12/23/2020 Admit Date: 12/22/2020 19:00 Reason for Admission: 60 y.o. male admitted with a chief complaint of left leg pain and now with a principal diagnosis of management of severe diabetic right foot wound. 24 Hour Events: - admitted o/n - Febrile to tmax of 38.8 - X-ray left hip - X-ray right foot - Wound debridement with ortho; bone biopsy collected - Left hip Athrocentesis with ortho -> dry tap - Broad spectrum Abx on Flagyl, vanc, and cefepime Subjective/Objective Subjective Jeff Scott is a 60 y.o. 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 He states that a few nights ago he slipped while walking back up the stairs after getting a drink of water. At the time he was able to walk back to bed, but the next day he was experiencing left hip pain that made ambulation more difficult than his baseline. He uses a cane at home at baseline. In regards to his foot ulcer, he states that he noticed it a few weeks ago and has been treating itwith irrigation and bacitracin. He does not endorse pain or tenderness in his right foot. Of note, he does endorse episodes of chills last week which he states localized to his upper body. He denies chest pain, SOB, nausea, vomiting, changes in urinary or bowel habits, or extremity swelling. Review of Systems A ten point review of systems was performed and was negative except for pertinent positives noted in the HPI Objective Vital Signs Temp: [37.5 ??C (99.5 ??F)-38.8 ??C (101.9 ??F)] , Heart Rate: --, Resp: [18] , BP: (107-132)/(39-83) , SpO2: [100 %] Physical Exam General appearance: moderately uncomfortable appearing male, cooperative, alert Lungs: clear to auscultation bilaterally, non labored breathing Heart: regular rate and rhythm, S1, S2 normal, no murmur, click, rub or gallop Abdomen: soft, non-tender; bowel sounds normal; no masses, no organomegaly Neurologic: Grossly normal Extremities: extremities warm, atraumatic, no cyanosis or edema. R foot wrapped in gauze. See orthopedic note for image of wound Pulses: LLE DP's palpable, RLE not performed due to wound dressing Skin: Skin color, temperature, turgor normal. No rashes or lesions Is PICC or central line present? No, PICC/Central line not present. Medications - WORKERS' COMPENSATION MAGISTRATE Levothyroxine 112mcg daily - WORKERS' COMPENSATION MAGISTRATE Eliquis 5mg BID - WORKERS' COMPENSATION MAGISTRATE Metformin (holding) - WORKERS' COMPENSATION MAGISTRATE Sitagliptin (holding) - WORKERS' COMPENSATION MAGISTRATE Tramadol 50mg BID PRN - WORKERS' COMPENSATION MAGISTRATE Insulin glargine 45 units sub q nightly - WORKERS' COMPENSATION MAGISTRATE Insulin lispro 10 units sub q with meals (holding) Labs Recent Labs 12/22/20203412/23/20 0702 WBC 14.68* 12.88* RBC 3.94* 3.77* HGB 12.3* 11.5* HCT 34.7* 32.6* MCV 88 87 MCH 31.2 30.5 MCHC 35.4 35.3 PLT 200 215 Recent Labs 12/22/20203412/23/20 0314 12/23/20 0804 NA 129* 129* 129* K 4.7 3.9 3.1* CL 90* 95* 100 CO2 18* 22 17* BUN 15 18 16 CREATININE 0.65* 0.69 0.53* Glucose 282/254/305 Lab Results Component Value Date CRP 335.3 (H) 12/22/2020 CRPP 11.7 (H) 03/09/201612/23 Bone Biopsy: Preliminary result: many mixed gram positive organisms 12/23 Blood Cultures: Pending Imaging X-ray Left Hip FINDINGS / IMPRESSION: ?? Left hip AP supine and cross table lateral views: ?? There is severe osteoarthrosis involving the left hip joint. Milder degenerative changes noted in the visualized lower most portion of the incompletely imaged left SI joint and along the pubic symphysis. Vasectomy surgical clips are partially imaged. ?? The bones appear diffusely demineralized. The severity the osteopenia reduces radiographic sensitivity for the detection of a subtle or nondisplaced acute fracture if present. Also, with overlying soft tissues obscuring the region of the interest on the crosstable lateral view including the femoralhead and neck. ?? There is a high degree of clinical concern for a radiographically occult fracture CT imaging can beobtained for further assessment. CT Left Hip w/o contrast FINDINGS / IMPRESSION: ?? * No evidence of acute fracture or dislocation. ?? * There are however end-stage degenerative changes in the left hip with severe joint space narrowing resulting in [id number] as well as subchondral sclerosis and cyst formation in addition to exuberant osteophytosis. ?? * Degrees of the normal except at the lateral aspect of the femoral head neck junction which while nonspecific suggest perhaps an underlying element of CAM- type femoroacetabular impingement was related to the severe osteoarthrosis. ?? * Minimal remodeling in the weightbearing portion of the left femoral head without evidence of discrete flattening or collapse of the articular surface to suggest avascular necrosis. ?? * Incidentally noted couple of elongated regions of intramuscular fat along the proximal aspect of the rectus femoris muscle with a couple of tiny foci of calcification, likely sequela from prior muscle injury with fat replacement, the possibility of intramuscular lipoma is less likely. ?? * There is osteopenia. ?? * Note made of vasectomy clips. A tiny focus of air in the subcutaneous soft tissues of the left inguinal region likely relates to prior injection. ?? * Small fat-containing inguinal hernias. X-Ray Right Foot FINDINGS / IMPRESSION: ?? Right foot 3 nonweightbearing views: ?? There are transmetatarsal amputations at the level of the proximal aspects of the first through fifth metatarsals. ?? Plantar skin and subcutaneous soft tissue ulcer at about the level of the transmetatarsal amputations. There is prominent soft tissue swelling surrounding the ulcer and extending throughout the foot.Osseous irregularity at the amputation margins may be postsurgical. If there is a high degree of clinical concern for osteomyelitis then MR imaging can be obtained to further evaluate for this possibility. ?? Degenerative joint changes and calcaneal enthesopathic changes are similar compared to the prior study. ?? Atherosclerotic arterial calcification is again noted. Assessment/Plan Assessment Jeff Scott is a 60 y.o. 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 In the ED he underwent a dry athrocentesis of the left hip with the orthopedics team which makes septic arthritis of this joint quite unlikely. The ulceration of his right foot is likely the source of his acute fever and leukocytosis. Preliminary bone biopsy results indicate many gram positive organisms present. Principal concern at this point is management of potential osteomyelitis. He has beenstarted on Flagly, vanc, and cefepime. Will consult ID today for recommendations on management strategies. Likely will remain on the floor until biopsy results are final to determine appropriate treatment regimen. He is otherwise hemodynamically stable at this time. Plan Principal Problem: Diabetic foot infection ([facility]) ([facility]) Severe Diabetic Foot Wound - s/p debridement by orthopedics in the ED, wound cultures obtained - preliminary read: many gram positive organisms present - Continue broad-spectrum antibiotics - Vancomycin, cefepime, metronidazole - ID consulted, appreciate recs - d/c cefepime and start ceftriaxone due to AMS - keep current regimen at this time - f/u formal recommendations - CBC daily LLE/Hip Pain - Currently on Tylenol 1000 q6 PRN, [employer] MAGISTRATE tramadol, and s/p Toradol x2 in the ED - add Robaxin 750mg q4 - lidocaine patch daily Type 2 Diabetes - WORKERS' COMPENSATION MAGISTRATE regimen of 45 units glargine daily with 10 units lispro with meals - Continue 45 units glargine nightly - Hold WORK[employer]' COMPENSATION MAGISTRATE lispro - Transition from SSI to aspart 10 units with meals - Target BG 140-180 - Hemaglobin A1C now - 500cc bolus LR as needed to replete fluid status Ketoacidosis Initial concern for euglycemic diabetic ketoacidosis with elevated anion gap metabolic acidosis. Though given the patient had not been able to eat due to immobility at home, his presentation was muchmore likely ketoacidosis in the setting of starvation. Patient ate and received his normal insulin dose in the ED with resolution of the elevated anion gap metabolic acidosis. - BMP daily Deep Vein Thrombosis of the left lower extremity - Diagnosed in August 2020 - Continue WORK[employer]' COMPENSATION MAGISTRATE apixaban 5mg twice daily Hypothyroidism - continue WORK[employer]' COMPENSATION MAGISTRATE levothyroxine VTE Prophylaxis Continue WORK[employer]' COMPENSATION MAGISTRATE Eliquis Discharge Plan Pending clinical improvement Consults Infectious Disease URI MILLER 12/23/2020 8:24 * Blake Staton MD - 12/23/2020 0624 EDT Nguyen Scott, , documented in this encounter H&P Notes * Marciano Segovia MD - 12/23/2020 0355 EDT Images from the original note were not included. Hospital Medicine Admission History & Physical Service Date: 12/23/2020 Admit Date: 12/23/20 Primary Care Provider: Jason Batres Chief Complaint: Left leg pain HPI Jeff Scott is a 60 y.o. 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 Patient states he fell a few days ago and since that time has had significant discomfort in his left leg. Given his history of infections he was concerned and wanted to be evaluated. On arrival to the ED he was found to have a temperature of 38.4 Celsius with significant discomfortof the left lower extremity and a large ulcer on his right foot. Patient states that the ulcer has been present for some time and is not currently bothering him. States that most of his pain is in his left hip and left knee and is difficult to move them which is quite different from his baseline. Denies fevers, chills, chest pain, shortness of breath, nausea, vomiting, abdominal pain, change inurinary and bowel habits. Review of Systems A complete 10 point ROS was performed and pertinent positive and negative findings listed in HPI, otherwise negative. Past Medical History: Diagnosis Date ??? Arthritis ??? Back pain ??? Diabetes mellitus (HCC-CMS) ??? Hypothyroidism ??? Wears glasses Past Surgical History: Procedure Laterality Date ??? BRAIN SURGERY s/p tumor ??? EYE SURGERY ??? FOOT SURGERY Right 03/23/2016 Right partial 2nd toe amputation ??? FOOT SURGERY Right 10/05/2019 I&D, amputation 2nd & 3rd rays, [facility] Social History Tobacco Use ??? Smoking status: Never Smoker ??? Smokeless tobacco: Former User Types: Chew Substance Use Topics ??? Alcohol use: No Family History Problem Relation Age of Onset ??? Stroke Mother 71 ??? Cancer Father 65 lung cancer ??? Colon Cancer Neg Hx Current Outpatient Medications Medication Sig ??? acetaminophen (TYLENOL) 500 mg tablet Take 2 Tabs by mouth every 6 hours as needed for Pain or Fever. ??? apixaban (ELIQUIS) 5 mg tablet Take 1 Tablet by mouth 2 times daily. ??? atorvastatin (LIPITOR) 20 mg tablet Take 1 Tab by mouth daily. ??? bisacodyL (DULCOLAX) [address] 10 mg rectally as needed for Constipation. ??? blood glucose (FREESTYLE TEST) test strips 1 Strip by misc (non-drug; combo route) route 2 times daily ??? blood glucose meter (FREESTYLE FREEDOM LITE) Test FS BID. ??? cholecalciferol, Vitamin D3, 1,000 unit tablet Take 2 Tabs by mouth at bedtime. ??? FREESTYLE FREEDOM LITE Use as directed as needed (glucose monitoring). ??? honey (MEDIHONEY, HONEY,) 80 % gel Apply 1 application topically three times a week. ??? insulin glargine (LANTUS SOLOSTAR) 100 unit/mL (3 mL) injection pen Inject 45 Units into the skin at bedtime. ??? insulin lispro (HUMALOG KWIKPEN INSULIN) 100 unit/mL injectable pen Inject 10 Units into the skin 3 times daily with meals. ??? lancets Test BID. ??? levothyroxine (SYNTHROID) 112 mcg tablet Take 1 Tab by mouth daily. ??? metFORMIN (GLUCOPHAGE) 500 mg tablet Take 1 Tab by mouth 2 times daily. ??? SITagliptin (JANUVIA) 100 mg tablet Take 1 Tab by mouth daily. ??? sodium phosphate (FLEET ENEMA) 19-7 gram/[address] 1 Enema rectally daily as needed. ??? traMADol (ULTRAM) 50 mg tablet Take 1 Tablet by mouth 2 times daily as needed for Pain. Daily Max: 100 mg No Known Allergies Objective Vitals Temp: [37.5 ??C (99.5 ??F)-38 ??C (100.4 ??F)] , Heart Rate: --, Pulse: [63-98] , Resp: [18] , BP: (116-132)/(80-83) , SpO2: [100 %] , Numeric Pain Level (Scale 1-10): 8 Weight: Weight : (!) 115.7 kg (255 lb) Body mass index is 33.64 kg/m??. Physical Exam General: Slightly ill-appearing man lying on ED stretcher and intermittent discomfort HEENT: Head: atraumatic, normocephalic with no rashes or lesions. Eyes: symmetrical, extraocular movements without deficit, anicteric. Nose: nares are patent and without discharge. Oropharynx: oral mucosa is moist and pink. CV: Regular rate and rhythm Chest/Resp: normal respiratory rate and effort Abd: nondistended nontender Ext/Derm: no deformity or rashes, skin is warm and well perfused, see orthopedic notes from this date for imaging of the ulcer on the right foot Neuro: Sensory deficits to gross touch in bilateral lower extremities Labs I have personally reviewed Recent Labs 12/22/202034 WBC 14.68* RBC 3.94* HGB 12.3* HCT 34.7* MCV 88 MCH 31.2 MCHC 35.4 PLT 200 NEUTROABS 11.49* SEDRATE >100* Recent Labs 12/22/20203412/22/20203412/23/20 0314 NA 129* < > 129* K 4.7 < > 3.9 CL 90* < > 95* CO2 18* < > 22 BUN 15 < > 18 CREATININE 0.65* < > 0.69 CALCIUM 8.8 < > 8.6 LABALBU 3.8 -- -- < > = values in this interval not displayed. Recent Labs 12/22/202034 TBIL 1.5* ALKPHOS 78 AST 49* ALT 23 CRP of 335.3 Imaging Right foot x-ray 12/22/2020: Left hip Xray 12/22/20: Assessment Jeff Scott is a 60 y.o. 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 In the ED patient underwent a dry arthrocentesis of the left hip with orthopedics making septic arthritis quite unlikely. Despite his chief complaint of pain in his left leg, the ulcer on his right foot appears acutely infected in the setting of leukocytosis and fever causing significant suspicion for severe diabetic foot infection. Patient is hemodynamically stable. Plan for admission for management of severe diabetic foot wound. Plan Severe diabetic foot wound No clear evidence of osteomyelitis at this time -S/p debridement by orthopedics in the ED, wound cultures obtained -Follow-up wound cultures -Continue broad-spectrum antibiotics -Vancomycin, cefepime, metronidazole -Consider ID consult -CBC daily Ketoacidosis Initial concern for euglycemic diabetic ketoacidosis with elevated anion gap metabolic acidosis. Though given the patient had not been able to eat due to immobility at home, his presentation was muchmore likely ketoacidosis in the setting of starvation. Patient ate and received his normal insulin dose in the ED with resolution of the elevated anion gap metabolic acidosis. -BMP daily Deep vein thrombosis of the left lower extremity -Diagnosed in August 2020 -Continue WORKERS' COMPENSATION MAGISTRATE apixaban 5 mg twice daily Type 2 diabetes -WORKERS' COMPENSATION MAGISTRATE regimen of 45 units glargine daily with 10 units lispro with meals -Continue 45 units glargine nightly -Hold designated mealtime insulin given uncertain diet while acutely ill -Sliding scale insulin with meals -Continue WORKERS' COMPENSATION MAGISTRATE atorvastatin -Continue WORK[employer]' COMPENSATION MAGISTRATE tramadol VTE Prophylaxis Therapeutic apixaban Code: Prior Discharge Plan Uncertain at this time Consults None Patient discussed with Dr. Segovia. DRE ATKINSON MD 12/23/2020 3:56 I saw and examined the patient 12/23/2020. I have discussed the case with Dr. Atkinson and agree with the findings and plans documented above. Marciano Segovia MD, 12/23/2020, 8:12 Attending Physician Internal Medicine Night Hospitalist documented in this encounter Procedure Notes * Chago Leon RN - 12/31/2020 1441 EDTAssociated Order(s): INSERT PICC LINE Central Catheter Insertion First Catheter This Session dba manager: Patient Location: [id number] Preliminary Data: Insertion Date: 12/31/20 Insertion Time: 1423 First Wheel Installer: Chago Leon RN RN/MA Documenting Procedure: Dania Rosado RN Pre-procedure: Time Out / Final Moment Performed: Yes Hand Hygiene Immediately Prior To Procedure: Yes Site Disinfected-2% Chlorhex/70% Alcohol: Yes Procedure Site Completely Dry: Yes Entire Patient Draped in Sterile Fashion: Yes Pre-procedure Deviation: NONE Intra-procedure: Sterile Gloves Used: Yes Cap, Mask, and Sterile Gown - Operators: Yes Sterile Field Maintained: Yes Cap and Mask Worn - All Personnel: Yes Intra-Procedure Deviation: NONE Post-procedure: Sterile Dressing Applied - Sterile Technique: Yes Dressing Dated And Timed: Yes Post-procedure Deviation: NONE Needle Passes: CHANDNI RN Makes 2 Or Fewer Needle Passes: 2 or fewer passes Needle Passes Deviation: NONE Physician Documentation Pre-Procedure: Procedure To Be Performed: New central line placement Indication: Long-term therapy Line Priority: Routine Tip Confirmation: 3CG Consent Obtained: Yes The patient and/or family have been provided education/training to minimize the risk of central line-associated bloodstream infections. Central Line Type: Central Catheter Type: PICC PICC Type: Solo PICC Central Line Details: Line Location: Right;Basilic Final Tip Location: (CAJ with 3CG) Line Lumens (#): Single Central Line Size: 4 Fr Line Coating: Non-antimicrobial coated Vessel Size: (0.47cm) Vein Depth (cm): (1.26cm) Line Trim Length: 45 cm Line External Length: 1 cm Line Securement Device: Statlock device Responsible Service / IR Details: Responsible Service: CHANDNI CONLEY Lidocaine 1% - Route/Dose (cc's): Intradermal;1 Central Line Materials and Methods: Number of Attempts: 1 Number of Sites Attempted: 1 Number of Kits Used: 1 Location Device Used: Sherlock;Ultrasound;3CG Central Line Operators: Number Of Operators: 1 First Wheel Installer's Name: Chago Leon RN First Wheel Installer's Title: Vascular indirect sales representative Unless otherwise noted, there were no complications, no blood loss and no cultures obtained. CHAGO LEON RN 12/31/2020 14:41 documented in this encounter Consult Notes * Sarah Hood J, DO - 01/19/2021 1151 EST INFECTIOUS DISEASES CONSULT SERVICE PROGRESS NOTE Patient: Jeff Scott : 1960 Service: Internal med Date of Admission: 12/22/2020 Today's Date: 01/19/21 CHIEF COMPLAINT: Left hip pain, improved from a few weeks ago. Weekly notable events: Having some difficulty with urinary retention and gross hematuria, urology is consulted. Current antibiotics: Ancef 24 December-present Subjective: Patient states he feels good today. He has some baseline left hip pain but denies nausea, vomiting, diarrhea and states he has good p.o. intake. REVIEW OF SYSTEMS: 10-point review of systems is negative except as mentioned above Please refer to the initial ID Consult Note obtained on 24 December for Medical/Family/Social History. I have reviewed this information and there is no significant change from prior. ALLERGIES: No Known Allergies MEDICATIONS: Reviewed in MAY. Pertinent for Current Facility-Administered Medications Medication Route Frequency ??? acetaminophen (TYLENOL) tablet 1,000 mg oral Q6H ??? alteplase (CATHFLO ACTIVASE) injection 2 mg intercatheter PRN ??? apixaban (ELIQUIS) tablet 5 mg oral BID ??? ascorbic acid (vitamin C) (VITAMIN C) tablet 500 mg oral DAILY ??? atorvastatin (LIPITOR) tablet 20 mg oral DAILY ??? bisacodyL (DULCOLAX) suppository 10 mg rectal Daily PRN ??? ceFAZolin in dextrose (iso-os) piggyback 2 g/100 mL intravenous Q8H ??? cholecalciferol (Vitamin D3) tablet 2,000 Units oral DAILY ??? dextrose 50 % solution 12.5 g intravenous PRN ??? diclofenac sodium gel 4 g topical QID ??? Dimethicone-Zinc Oxide 20-25 % spray,non-aerosol topical PRN ??? gabapentin (NEURONTIN) capsule 300 mg oral TID ??? glucagon injection 1 mg intramuscular PRN ??? influenza vaccine quad 2020- (PF) (6 mos+) IM injection-syringe 0.5 mL intramuscular ONCE ??? insulin aspart U-100 (NOVOLOG FLEXPEN) injection 6 Units subcutaneous TID WC ??? insulin aspart U-100 (NOVOLOG FLEXPEN) injection subcutaneous TID WC ??? insulin aspart U-100 (NOVOLOG FLEXPEN) injection subcutaneous QHS ??? insulin glargine (LANTUS SOLOSTAR/SEMGLEE) injection pen 30 Units subcutaneous QHS ??? levothyroxine (SYNTHROID) tablet 112 mcg oral DAILY BEFORE BREAKFAST ??? lidocaine (PF) 10 mg/mL (1 %) injection 2 mg intradermal PRN ??? lidocaine (PF) 10 mg/mL (1 %) injection 2 mg intradermal PRN ??? lidocaine (PF) 10 mg/mL (1 %) injection 5 mg intradermal PRN ??? lidocaine 5 % (LIDODERM) patch 1 Patch transdermal DAILY ??? methocarbamoL (ROBAXIN) tablet 750 mg oral QID ??? morphine (MS CONTIN) CR tablet 15 mg oral DAILY (BREAKFAST) ??? morphine (MS CONTIN) CR tablet 30 mg oral BID (LUNCH/DINNER) ??? morphine (MS IR) tablet 15 mg oral Q4H PRN ??? polyethylene glycol 3350 (MIRALAX) packet 34 g oral BID ??? senna (SENOKOT) tablet 2 Tablet oral BID ??? sodium chloride 0.9 % (flush) flush 10 mL intercatheter WEEKLY ??? sodium chloride 0.9 % (flush) flush 10 mL intercatheter PRN ??? sodium chloride 0.9 % (flush) flush 20 mL intercatheter PRN ??? TAMSulosin (FLOMAX) capsule 0.4 mg oral DAILY ??? zinc oxide (DESITIN) 40 % paste topical PRN PHYSICAL EXAM: VS: BP 115/62 (BP Cuff Location: Left arm, BP Patient Position: Supine) Pulse 95 Temp 36.4 ??C (97.5 ??F) (Oral) Resp 16 Ht 185.4 cm (73) Wt (!) 115.7 kg (255 lb 1.2 oz) SpO2 100% BMI 33.65 kg/m?? GENL: Very pleasant, NAD CARD: RRR, normal S1, S2, no murmurs / rubs / gallops PULM: clear to auscultation bilaterally w/o wheezes / rhonchi / rales ABDM: non-distended, normoactive bowel sounds, soft, non-tender, no hepatosplenomegaly MSK: Right leg surgical dressings intact at location of BKA, left leg no lesions. SKIN: no rashes, no jaundice NEURO: awake, alert and oriented x3 ACCESS: PICC line right upper extremity LABORATORY: Reviewed in detail in PRISM. WBC/RBC/HGB/HCT/PLT/ANC11.96/3.42/10.5/31.2/370/-- (01/17 0400) Estimated Creatinine Clearance: 176.6 mL/min (A) (by C-G formula based on SCr of 0.6 mg/dL (L)). MICROBIOLOGY DATA: Reviewed in detail in PRISM. Pertinent for: 28 December Covid negative 24 December blood cultures no growth 23 December blood cultures MSSA 23 December bone from foot moderate group B strep, few MSSA IMAGING DATA: I have independently reviewed the available imaging. 29 December MRI right hip 1. Feathery pattern of muscle edema with [...] fracture in the setting of severe osteopenia. Please correlate. 3. Severe left hip joint osteoarthrosis with extensive degenerative tearing of the acetabular labrum. 4. Trochanteric bursitis with small volume fluid distending the right trochanteric bursa. 5. Moderate right hip joint osteoarthrosis and mild right trochanteric bursitis demonstrated on thewide [id number] coronal images 24 December TTE, no concern for endocarditis. [address] ?? * No evidence of acute fracture or dislocation. * There are however end-stage degenerative changes in the left hip with severe joint space narrowing resulting in [id number] as well as subchondral sclerosis and cyst formation in addition to exuberant osteophytosis. * Degrees of the normal except at the lateral aspect of the femoral head neck junction which while nonspecific suggest perhaps an underlying element of CAM- type femoroacetabular impingement was related to the severe osteoarthrosis. * Minimal remodeling in the weightbearing portion of the left femoral head without evidence of discrete flattening or collapse of the articular surface to suggest avascular necrosis. * Incidentally noted couple of elongated regions of intramuscular fat along the proximal aspect of the rectus femoris muscle with a couple of tiny foci of calcification, likely sequela from prior muscle injury with fat replacement, the possibility of intramuscular lipoma is less likely. * There is osteopenia. * Note made of vasectomy clips. A tiny focus of air in the subcutaneous soft tissues of the left inguinal region likely relates to prior injection. * Small fat-containing inguinal hernias. ASSESSMENT: 1. MSSA bacteremia 23 December cleared by 24 December, community-acquired. [place] to be secondary to osteomyelitis of his right lower extremity. Patient is nearing the endpoint of his 4-week planned course of Ancef. Surface echo 24 December not concerning for endocarditis. Patient afebrile with mild leukocytosis of unknown etiology. Most recent toxicity labs 17 January look okay. 2. Poorly controlled diabetes 3. Right foot osteomyelitis secondary to diabetes. Status post BKA 29 December for source control. Bone cultures from tissue that have been amputated grew MSSA and group B strep. 4. Left hip pain, dry tap by ortho and results of CT not concerning for infection so presumed DJD. 5. 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 6. Urinary retention, indwelling Scanlon RECOMMENDATIONS: 1. Proceed with plan to stop Ancef on 20 January at the 4-week edson for MSSA bacteremia that was secondary to a right lower extremity diabetic foot osteomyelitis which was addressed with a right sided BKA. 2. Optimize diabetes management. As patient has reached the planned end of his IV antibiotics tomorrow, and no other acute ID issues, will go ahead and sign off at this time. Please feel free to reconsult if any new ID concerns arise. Hood Smith DO Pager [phone] Infectious Diseases Attending * Dell Stover MD - 01/17/2021 6703 EST [facility] Urologic Surgery Inpatient Consult Note Admit Date: 12/22/2020 Date of Service: 01/17/2021 PCP: Jason Batres Requesting Attending: Ti Maloney MD Specialty Completing Consult: Urologic Surgery Consulting Attending: Raman West Chief Complaint: Bloody urine Reason for Consult: Urology was asked to see Jeff at the request of Ti Maloney MD for evaluation of gross hematuria with clots while anticoagulated HPI: Jeff is a 60 y.o. male with history of hypothyroidism, osteoarthritis, short term memory loss 2/2 craniopharyngioma resected in 2006, and poorly controlled DM (A1c 13.9) with neuropathy and prior diabetic foot infections requiring TM amps in past, as well as h/o DVTs (currently on 6 month course of Eliquis for DVT in E) who presented for left leg pain, found to have osteomyelitis, now s/p right BKA on 12/29 with post-op recovery limited by left hip pain likely 2/2 OA and degenerative labrum tears on MRI. Patient has had constipation as well as urinary retention while inpatient. Scanlon catheter removed on 01/14 and was straight cathed multiple times with volumes up to 1 L per report, ultimately with scanlon catheter replaced. Was started on Flomax 0.4 mg. Patient then developed gross hematuria which has progressed to include clots while on Eliquis. Urology was consulted to assist with management. Jeff denies any real difficulty voiding in the past, no hesitancy, double voiding, or weak stream.He does have some occasional nocturia but notes that he drinks a lot before bed. He doesn't think he's every seen a urologist or had a catheter placed for retention. He is unsure if he's ever taken meds for voiding. He does endorse constipation as an inpatient, unsure of his last BMs. He notes he has required regular narcotics for the pain. Past Medical History: Diagnosis Date ??? Arthritis ??? Back pain ??? Diabetes mellitus (HCC) ??? Hypothyroidism ??? Wears glasses Past Surgical History: Procedure Laterality Date ??? BRAIN SURGERY s/p tumor ??? EYE SURGERY ??? FOOT SURGERY Right 03/23/2016 Right partial 2nd toe amputation ??? FOOT SURGERY Right 10/05/2019 I&D, amputation 2nd & 3rd rays, [facility] Social History Tobacco Use ??? Smoking status: Never Smoker ??? Smokeless tobacco: Former User Types: Chew Substance Use Topics ??? Alcohol use: No Family History Problem Relation Age of Onset ??? Stroke Mother 71 ??? Cancer Father 65 lung cancer ??? Colon Cancer Neg Hx No Known Allergies Review of Systems: 10 point review of systems negative except at noted. Objective/Physical Exam: Vital Signs: No data found. Weight: Weight : (!) 115.7 kg (255 lb 1.2 oz) Height: Height: 185.4 cm (73) I and O: I&O By Type - 3 Shifts Including Current In: - Out: 1675 [Urine:1675] Exam: General Appearance: AAO, NAD Lungs: non-labored on RA Heart: Reg rate, 90s Abdomen: SNTND Extremities: LeftTM amp; right BKA with clean stump dressing in place; Neuro: Clearly with some short term memory loss, asks to repeat Back: no CVAT Genitourinary: 16 Fr scanlon draining clear light pink urine, visible clots in tubing or bag; manually irrigated with 120 cc of saline, clear pink-tinged return, no clots Data Review: Labs: CBC: Recent Labs 01/14/21 0536 01/17/21 0400 WBC 9.80 11.96* RBC 3.17* 3.42* HGB 9.7* 10.5* HCT 28.6* 31.2* MCV 90 91 MCH 30.6 30.7 MCHC 33.9 33.7 PLT 362 370 BMP: Recent Labs 01/14/21 0536 01/17/21 0400 NA 137 138 K 4.3 4.4 CL 101 99 CO2 29 29 BUN 17 19 CREATININE 0.59* 0.60* CALCIUM 9.3 9.6 Impression: Jeff Scott is a 60 year old male with history as above, admitted with left leg osteo s/p BKA and MSSA bacteremia who has urinary retention requiring scanlon catheter placement. Patient with very mild gross hematuria and report of clots while on Eliquis. Catheter currently draining clear light pink, irrigated very easily without any clots. Would not upsize catheter at this time or initiate CBI. Regarding urinary retention, he has multiple factors working against him, including: poorlycontrolled DM, immobility, narcotics, and constipation. Would recommend scanlon until these factors are better optimized. Ultimately as an outpatient down the road he may benefit from urodynamic testing . Suggestions/Recommendations: - No acute urologic intervention indicated - Continue scanlon catheter to gravity drainage, manually irrigate PRN for patency, clots - Agree with continuing Flomax 0.4mg - Limit narcotics and avoid constipation as able - Urology will continue to follow, will need f/u in clinic arranged prior to d/c This patient and plan were discussed with Dr. West. Thank you for consulting us in the care of Jeff Scott. We will, of course, continue to keep you informed of the patient's urological care and the results of our further evaluation. Dell Stover MD 01/17/2021 4:34 Cosigned by Raman West MD at 01/17/2021 8:16 EST * Estephanie Westfall NP - 01/03/2021 1411 EDT Images from the original note were not included. Wound Care Consult Admit Date: 12/22/2020 Date of Service: 01/03/2021 Reason for Consult: went from pink/red and blanching to open area overnight. HPI Jeff Scott??is a 60 y.o.??male??with??type 2 diabetes complicated by neuropathy and previousdiabetic foot infection s/p right 1 through 5 transmetatarsal amputations??approximately 1 year ago, hypothyroidism, DVT August 2020, short-term memory loss secondary to craniopharyngioma resection in 2006 who presented for left leg pain now found to have osteomyelitis. Seen by ortho and underwent right BTK amputation on 12/29 for infection control. Assessment Reviewed image added to chart by nursing. Moisture associated skin damage to bilateral buttocks. Scattered areas of epidermal sloughing and maceration to bilateral buttocks. Skin is pink, weeping. Recommend using Zinc spray or Desitin to buttocks BID and PRN after pericare. Discontinue cloth chux and use disposable dri-flow chux for better moisture management. Turn patient fully on hisside to allow air to buttocks skin, lift buttocks when boosting to avoid friction/shearing to skin.If interventions do not improve skin condition in the next few days, consider first step cirrus mattress. Recommendations ?? Zinc Paste or Zinc-Dimethicone spray to buttocks BID and PRN with pericare ?? Strict, q2h turns, turn fully on when patient is laying on his side to allow air to buttocks skin ?? Avoid placing pillows directly behind buttocks when turning ?? Float heel off mattress ?? Disposable Dri-Deshawn Chux, avoid cloth chux ?? Waffle cushion when up in chair. Limit time OOB to 1-2h ?? No Briefs ?? If skin condition does not improve, consider First Step Cirrus mattress Wound Care will not follow this patient. Please contact us or reconsult for further concerns. Estephanie Westfall APRN, AGACNP-BC, CWCN-AP Certified Wound Care Nurse Practitioner * Nikia Root RN - 12/30/2020 1200 EDTAssociated Order(s): CONSULT DIABETES NURSE CLINICIAN CONSULT Diabetes Nurse Clinician Consult Note: current A1C=13.9 SMBG: checks blood sugar at home perhaps 2x/day. He was very unclear about this. Not able to find out a reliable answer. Medications: Metformin 500 mg bid, Lantus 45 units hs, Lispro 10 units with meals DM Provider: PCP DM Hx: unclear Assessment/Education: Met with Jeff today. He is sleepy but willing to receive education. Providedsick day management education. Reviewed insulin injection technique. Reviewed diet and meal planning. Provided handouts. Jeff has short term memory issues. He is currently going through a divorce. States he has been cooking for himself and goes to [facility] to get his prescriptions. Is hopeful fora prosthesis when able and is curious about PT recommendations for mobility. Recommendations: Follow up with PCP in 1 week at discharge. Please continue ongoing diabetes education and provide written materials for education as Jeff has poor short term memory and written materials will serve as a better reminder. Nutrition already following. Will sign off. Sick Day Management Handout Review: ?? Why worry about sick days? High blood sugars may occur when you're sick or stressed ?? Examples of a sick day ?? Illness ?? Infection ?? Surgery ?? Injury ?? Major emotional stress ?? Sick Day Plan ?? Take your diabetes medication ?? Check your blood sugar before meals and bedtime ?? If you have T1DM, check urine ketones when blood sugar is 250 or higher ?? If you can eat your meals: Every 1-2 hours drink 6-8 ounces of fluids ( sugar and caffeine free) ?? If you are unable to eat your usual meal plan: Replace the carbohydrates in your meal plan by eating small amounts of the list of items provided on the handout. (15 grams of carbohydrate) ?? REST! ?? When to call your health care provider: vomiting or diarrhea that lasts for 4 hours or more, blood sugar values of 250 or greater on 2 or more occasions in one day, a temperature >101, and moderate or large ketones. ?? Blood sugar goals Fastin-130 mg/dl During the day: 100-180 mg/dl Before bed: less than 140 mg/dl Insulin Injection six step method for patients 1. Clean stopper with alcohol attach the needle remove 2 caps. 2. Clear the air by priming the pen with 2 units check the window (return to zero.). 3. Dial desired dose cleanse your skin with alcohol prep pad. 4. Inject, push, count to ten. 5. Check the window that it returned to zero to ensure you received all your dose. 6. Remove the pen needle with larger plastic cap and dispose safely in sharps container.( If you are using 2 different insulins make sure you are injecting at least 2 inches apart on your body. Also important to edson pens using a rubber band to avoid mixing them up. Injection location sites Abdomen Upper and outer arm Front and sides of thighs Buttocks Keep your unopened pens in the refrigerator they are good until expiration on box. After open can be left out room temperature for up to 28 days. Avoid very hot or very cold temperatures. Can try keeping your supplies in a pouch such as pencil case to keep it all together and place on your placemat while setting the table for meals. This will be your reminder to check your BG and take your insulin just prior to your meal. Delroes Root RN Diabetes Nurse Clinician #[id number] * Kurt Alicea, RD - 12/24/2020 1211 EDTAssociated Order(s): CONSULT NUTRITION Nutrition Assessment Note: Initial Visit Patient Name: Jeff Scott Admission Date: 12/22/2020 Admission Dx: Diabetic foot infection (HCC-CMS) (HCC) Reason for Visit: Consult BACKGROUND DATA Clinical Summary: Jeff Scott is a 60 y.o. male with??type 2 diabetes complicated by neuropathy and previous diabetic foot infection s/p right 1 through 5 transmetatarsal amputations??approximately 1 year ago, hypothyroidism, short-term memory loss secondary to craniopharyngioma resection in 2006 who presented forleft leg pain now undergoing an evaluation for a severe diabetic ulcer of the right foot. ?? Past Medical History: Diagnosis Date ??? Arthritis ??? Back pain ??? Diabetes mellitus (HCC) ??? Hypothyroidism ??? Wears glasses Allergies on file: Patient has no known allergies. Subjective: Pt working w/ Podiatry; chart reviewed, dietitian to follow-up. Current Nutrition Orders: Diet Order: Consistent Carbohydrate Physical Findings: NFPE: pt w/ Podiatry Digestive Systems: Last BM (unknown) Skin: DM2 ulcer (R foot) Edema: none noted Anthropometrics: Height: 185.4 cm (73) Wt Readings from Last 6 Encounters: 12/22/20 (!) 115.7 kg (255 lb) 11/04/20 (!) 115.8 kg (255 lb 6.4 oz) 08/19/20 (!) 113.4 kg (250 lb) 08/12/20 (!) 106.6 kg (235 lb) 05/20/20 (!) 120.7 kg (266 lb) 10/03/19 (!) 110.1 kg (242 lb 11.6 oz) BMI: Body mass index is 33.64 kg/m??. (obesity class I) Pertinent Medications: Current Facility-Administered Medications Medication Route Frequency ??? acetaminophen (TYLENOL) tablet 1,000 mg oral Q6H ??? apixaban (ELIQUIS) tablet 5 mg oral BID ??? atorvastatin (LIPITOR) tablet 20 mg oral DAILY ??? ceFAZolin in dextrose (iso-os) piggyback 2 g/100 mL intravenous Q8H ??? dextrose 50 % solution 12.5 g intravenous PRN ??? glucagon injection 1 mg intramuscular PRN ??? influenza vaccine quad (PF) (6 mos+) IM injection-syringe 0.5 mL intramuscular ONCE ??? insulin aspart U-100 (NOVOLOG FLEXPEN) injection 10 Units subcutaneous TID WC ??? insulin aspart U-100 (NOVOLOG FLEXPEN) injection subcutaneous TID WC ??? insulin glargine (LANTUS SOLOSTAR/SEMGLEE) injection pen 45 Units subcutaneous QHS ??? levothyroxine (SYNTHROID) tablet 112 mcg oral DAILY BEFORE BREAKFAST ??? lidocaine (PF) 10 mg/mL (1 %) injection 2 mg intradermal PRN ??? lidocaine 5 % (LIDODERM) patch 1 Patch transdermal DAILY ??? methocarbamoL (ROBAXIN) tablet 750 mg oral QID ??? morphine (MS IR) tablet 15 mg oral Q4H PRN ??? traMADol (ULTRAM) tablet 50 mg oral BID PRN Relevant Labs: Lab Results Component Value Date WBC 13.75 (H) 12/24/2020 RBC 3.60 (L) 12/24/2020 HGB 10.8 (L) 12/24/2020 HCT 30.7 (L) 12/24/2020 MCV 85 12/24/2020 MCH 30.0 12/24/2020 PLT 182 12/24/2020 NA 130 (L) 12/24/2020 K 3.4 (L) 12/24/2020 CL 95 (L) 12/24/2020 CO2 24 12/24/2020 BUN 10 12/24/2020 CREATININE 0.57 (L) 12/24/2020 GLUCOSEFINGE 348 (H) 07/30/2018 CALCIUM 8.4 (L) 12/24/2020 MG 2.0 10/04/2019 PHOS 3.8 10/04/2019 VITD 13.1 (L) 10/04/2019 Estimated Nutrition Intake: 100% of recorded meals thus far ASSESSMENT: Nutrition consult for DM2 diet education; pt busy w/ Podiatry today, dietitian to follow-up for diet instruction. Pt w/ increased protein and micronutrient needs r/t wound healing in setting of DM2 foot ulcer. Continue diet as ordered and encourage high protein foods/beverages; recommend adding VitC 500mg daily to support tissue healing. Hx low vit D level, recommend empirically supplementing Vit D3 2000 units daily. Monitor PO intake and trend weight. Nutrition Risk Level: Moderate (2) MEDICAL NUTRITION THERAPY PLAN: 1. Continue diet as ordered - encourage high protein foods/beverages - dietitian will f/up for DM2 diet education 2. Add Vit C 500mg daily 3. Add Vit D3 2000 units daily 4. Monitor PO intake and BMs 5. Trend weight 6. Continue to monitor labs, I/Os, and skin KURT ALICEA CD (Call [facility] or use Intelliweb to page RD covering this unit) * Robbie Brown MD - 12/23/2020 0274 EDT Images from the original note were not included. INFECTIOUS DISEASES INITIAL CONSULT Patient: Jeff Scott : 1960 Service: Medicine Date of Admission: 12/22/2020 Date of Consultation: 12/23/20; 13:54 Requested by: Mary Ann Pinto, * Reason for consult: DFI/OM CHIEF COMPLAINT: left hip pain HISTORY OF PRESENT ILLNESS: Mr. Scott is a 60 y.o. gentleman with history of a craniopharyngioma resection in 2006, poorly-controlled diabetes, right diabetic foot infection s/p 6 weeks IV antibiotics and ultimately TMA October 2019 (polymicrobial), and left hip osteoarthritis who presented with severe left hip pain. He presented 12/22 with progressive left hip pain after falling while going up the stairs. In the ED, incidentally noted to have an ulcer on the plantar aspect of the right foot. He was febrile to 38.8 and work-up was notable for leukocytosis (14.7) and elevated inflammatory markers (CRP 225). Blood cultures drawn. Orthopedics attempted to aspirate the left hip but encountered a dry tap, and additionally procured a bone biopsy of the right foot ulcer after it was debrided to viable tissue. Started on empiric cefepime, metronidazole, and vanco and admitted to medicine. Mr. Scott is having trouble recounting much history because his hip is still in a considerable amount of pain. He tells me the ulcer on his right foot has been present for at least a year. He mentions that ~2 wks ago he had an episode of rigors. He has not otherwise had fever, sweats, streaking erythema up the leg, malaise. No antibiotics in the last few weeks. Has spent time in the [place] a few weeks ago. No animal bites or scratches. REVIEW OF SYSTEMS: 10-point review of systems is negative except as mentioned in the HPI and as noted here. PAST MEDICAL Past Medical History: Diagnosis Date ??? Arthritis ??? Back pain ??? Diabetes mellitus (HCC) ??? Hypothyroidism ??? Wears glasses SURGICAL HISTORY: Past Surgical History: Procedure Laterality Date ??? BRAIN SURGERY s/p tumor ??? EYE SURGERY ??? FOOT SURGERY Right 03/23/2016 Right partial 2nd toe amputation ??? FOOT SURGERY Right 10/05/2019 I&D, amputation 2nd & 3rd rays, [facility] FOREIGN BODIES: denies SOCIAL HISTORY: Social History Socioeconomic History ??? Marital status: Spouse name: Not on file ??? Number of children: Not on file ??? Years of education: Not on file ??? Highest education level: Not on file Occupational History ??? Not on file Tobacco Use ??? Smoking status: Never Smoker ??? Smokeless tobacco: Former User Types: Chew Vaping Use ??? Vaping Use: Never used Substance and Sexual Activity ??? Alcohol use: No ??? Drug use: No ??? Sexual activity: Not on file Other Topics Concern ??? Not on file Social History Narrative ??? Not on file Social Determinants of Health Financial Resource Strain: ??? Difficulty of Paying Living Expenses: Not on file Food Insecurity: ??? Worried About Running Out of Food in the Last Year: Not on file ??? Ran Out of Food in the Last Year: Not on file Transportation Needs: ??? Lack of Transportation (Medical): Not on file ??? Lack of Transportation (Non-Medical): Not on file Physical Activity: ??? Days of Exercise per Week: Not on file ??? Minutes of Exercise per Session: Not on file Stress: ??? Feeling of Stress : Not on file Social Connections: ??? Frequency of Communication with Friends and Family: Not on file ??? Frequency of Social Gatherings with Friends and Family: Not on file ??? Attends Restorationism Services: Not on file ??? Active Member of Clubs or Organizations: Not on file ??? Attends Club or Organization Meetings: Not on file ??? Marital Status: Not on file FAMILY HISTORY: Problem Relation Name Comments Cancer Father lung cancer Stroke Mother Colon Cancer Neg Hx The Family History was reviewed and is non-contributory for a past history of infection or immunocompromised state. ALLERGIES: No Known Allergies MEDICATIONS: Reviewed in MAY. Anti-infectives: Cefepime 12/23 - Ceftriaxone 12/23 - Vancomycin 12/23 - PHYSICAL EXAM: VS: BP 124/59 (BP Patient Position: Semi fowlers) Pulse (!) 106 Temp 37.3 ??C (99.1 ??F) (Oral) Resp 18 Ht 185.4 cm (73) Wt (!) 115.7 kg (255 lb) SpO2 93% BMI 33.64 kg/m?? GENL: pleasant, though intermittently in distress due to pain EENT: sclerae anicteric, moist mucous membranes, no ulcers NECK: supple CARD: RRR, normal S1, S2, no murmur PULM: clear to auscultation bilaterally BACK: no focal tenderness, no costovertebral angle tenderness ABDM: non-distended, soft, non-tender MSK: no joint swelling or erythema EXTR: warm and well perfused, no edema SKIN: no rashes, no jaundice NEURO: awake, alert and oriented x3, no focal deficit ACCESS: bilateral upper extremity PIVs LABORATORY: Reviewed in detail in PRISM. WBC/RBC/HGB/HCT/PLT/ANC12.88/3.77/11.5/32.6/215/11.27 (12/23 07) Estimated Creatinine Clearance: 200 mL/min (A) (by C-G formula based on SCr of 0.53 mg/dL (L)). MICROBIOLOGY DATA: Reviewed in detail in PRISM. Pertinent for: 12/23 bone culture: few polys, many mixed GPs 12/23 blood NGTD IMAGING DATA: personally reviewed 12/22 right foot radiographs: There are transmetatarsal amputations at the level of the proximal aspects of the first through fifth metatarsals. Plantar skin and subcutaneous soft tissue ulcer at about the level of the transmetatarsal amputations. There is prominent soft tissue swelling surrounding the ulcer and extending throughout the foot.Osseous irregularity at the amputation margins may be postsurgical. If there is a high degree of clinical concern for osteomyelitis then MR imaging can be obtained to further evaluate for this possibility. Degenerative joint changes and calcaneal enthesopathic changes are similar compared to the prior study. Atherosclerotic arterial calcification is again noted. 12/[address] w/o contrast: * No evidence of acute fracture or dislocation. * There are however end-stage degenerative changes in the left hip with severe joint space narrowing resulting in [id number] as well as subchondral sclerosis and cyst formation in addition to exuberant osteophytosis. * Degrees of the normal except at the lateral aspect of the femoral head neck junction which while nonspecific suggest perhaps an underlying element of CAM- type femoroacetabular impingement was related to the severe osteoarthrosis. * Minimal remodeling in the weightbearing portion of the left femoral head without evidence of discrete flattening or collapse of the articular surface to suggest avascular necrosis. * Incidentally noted couple of elongated regions of intramuscular fat along the proximal aspect of the rectus femoris muscle with a couple of tiny foci of calcification, likely sequela from prior muscle injury with fat replacement, the possibility of intramuscular lipoma is less likely. * There is osteopenia. * Note made of vasectomy clips. A tiny focus of air in the subcutaneous soft tissues of the left inguinal region likely relates to prior injection. * Small fat-containing inguinal hernias. ASSESSMENT: 1. Right foot diabetic foot infection and osteomyelitis. Bone culture in ED w/ mixed GPs. 2. Left hip pain. Dry tap by ortho and CT without fluid collection, fracture. [place] to be OA flare by ortho. 3. Elevated inflammatory markers 4. Fever, leukocytosis. 5. Diabetes w/ DKA RECOMMENDATIONS: 1. Reasonable to continue empiric vancomycin (trough 10-15), ceftriaxone 2 grams daily, metronidazole PO 500 mg every 8 hours 2. Will follow-up blood cultures and bone culture Recommendations discussed with primary team Thank you for asking us to participate in this patient's care. Please call with questions or concerns. Robbie Brown MD Infectious Disease Attending 12/23/2020 13:54 * Sachin Venegas MD - 12/23/2020 0056 EDT Images from the original note were not included. Orthopaedic Surgery Consultation Consultation requested by: Alessandro Hernandez MD for: Diabetic foot wound and possible septic hip arthritis HPI: Jeff Scott is a 60 y.o. 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 Gonzales), osteoarthritis of the left hip who presents this evening with severe left hip pain and an ulceron the plantar aspect of the right foot. He states that last night he was walking up his stairs from his basement when he began to fall but caught himself on the railing and slammed his hip into the wall. He did not have pain at that time, climbed the stairs and went to bed without issue. When he awoke this morning he had 10 out of 10 pain in his left hip that is far worse than his baseline pain from his osteoarthritis. The pain was located over his anterior groin and directly over the greater trochanter. He was unable to bear weight on the left hip as a result. It was at this point that he called an ambulance to bring him to the hospital. Of note, he is febrile on admission to 38 ??C. However, he denies any recent systemic symptoms of fever, chills, sweats. He denies any recent illness. Ambulatory status: At baseline he uses bilateral walking sticks to get around but is able to walk agreat deal with these. Past Medical History: Diagnosis Date ??? Arthritis ??? Back pain ??? Diabetes mellitus ([facility]) ??? Hypothyroidism ??? Wears glasses Past Surgical History: Procedure Laterality Date ??? BRAIN SURGERY s/p tumor ??? EYE SURGERY ??? FOOT SURGERY Right 03/23/2016 Right partial 2nd toe amputation ??? FOOT SURGERY Right 10/05/2019 I&D, amputation 2nd & 3rd James calvillo Prior to Admission medications Medication Sig Start Date End Date Taking? Authorizing Provider acetaminophen (TYLENOL) 500 mg tablet Take 2 Tabs by mouth every 6 hours as needed for Pain or Fever. 10/14/19 Rainer Cavazos MD apixaban (ELIQUIS) 5 mg tablet Take 1 Tablet by mouth 2 times daily. 11/04/20 Millie Landeros APRN atorvastatin (LIPITOR) 20 mg tablet Take 1 Tab by mouth daily. 04/22/20 Jason Batres MD bisacodyL (DULCOLAX) [address] 10 mg rectally as needed for Constipation. Provider, MD Meri blood glucose (FREESTYLE TEST) test strips 1 Strip by misc (non-drug; combo route) route 2 times daily 05/11/14 Jason Batres MD blood glucose meter (FREESTYLE FREEDOM LITE) Test FS BID. 11/11/13 Jason Batres MD cholecalciferol, Vitamin D3, 1,000 unit tablet Take 2 Tabs by mouth at bedtime. 10/14/19 Rainer Cavazos MD FREESTYLE FREEDOM LITE Use as directed as needed (glucose monitoring). 11/14/17 Yesi Marie APRN honey (MEDIHONEY, HONEY,) 80 % gel Apply 1 application topically three times a week. 01/28/20 Angelina Gonzales DPM insulin glargine (LANTUS SOLOSTAR) 100 unit/mL (3 mL) injection pen Inject 45 Units into the skin at bedtime. 04/22/20 Jason Batres MD insulin lispro (HUMALOG KWIKPEN INSULIN) 100 unit/mL injectable pen Inject 10 Units into the skin 3times daily with meals. 04/23/20 Jason Batres MD lancets Test BID. 11/11/13 Jason Batres MD levothyroxine (SYNTHROID) 112 mcg tablet Take 1 Tab by mouth daily. 04/22/20 Jason Batres MD metFORMIN (GLUCOPHAGE) 500 mg tablet Take 1 Tab by mouth 2 times daily. 04/22/20 Su Batres MD SITagliptin (JANUVIA) 100 mg tablet Take 1 Tab by mouth daily. 04/22/20 Jason Batres MD sodium phosphate (FLEET ENEMA) 19-7 gram/[address] 1 Enema rectally daily as needed. Provider, MD Meri traMADol (ULTRAM) 50 mg tablet Take 1 Tablet by mouth 2 times daily as needed for Pain. Daily Max: 100 mg 12/13/20 Carmelita Hogue, PEG DRIVER No Known Allergies Family History Problem Relation Age of Onset ??? Stroke Mother 71 ??? Cancer Father 65 lung cancer ??? Colon Cancer Neg Hx Social History: Lives in [place] with his (currently in divorce proceedings) in a 1 level ranch home. 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 He denies any tobacco use, alcohol use, drug use. reports that he has never smoked. He has quit using smokeless tobacco. His smokeless tobacco use included chew. He reports that he does not drink alcohol and does not use drugs. Currently unemployed. 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 Review of Systems: A 10-point review of systems was obtained and pertinent positives are included in the HPI. All others are negative. Physical Exam: BP 132/83 Pulse 63 Temp 38 ??C (100.4 ??F) (Oral) Resp 18 Ht 185.4 cm (73) Wt (!) 115.7 kg (255 lb) SpO2 100% BMI 33.64 kg/m?? General: alert, awake, no apparent distress, notably slow in response and unable to process multiple questions at one time. Respiratory: non labored breathing on room air CV: regular rate and rhythm as judged by distal pulses Focused Musculoskeletal and Neurovascular Examination Right lower extremity: -2x2cm Ulcer present on the plantar aspect of the right foot over the base of the distal fifth metatarsal with copious fibrinous material. There is serosanguinous drainage and probes directly to the bone. There was no undermining or tracking beyond the margin of the callus - No tenderness to palpation of the forefoot, midfoot, hindfoot, ankle, leg, knee, thigh. No tenderness with straight leg raise or logrolling at the hip. -Diminished sensation to the level of the ankle. - 5/5 strength in tibialis anterior, gastroc soleus complex; 5/5 strength in quads, hamstrings, hipflexors. -Palpable DP pulse. Left lower extremity: - No open injury or laceration, no ecchymoses, no abrasions, no rash, no swelling - Able to passively flex the hip to 30 degrees with 0 degrees internal rotation - Tenderness to palpation over the greater trochanter. Significant pain with any movement of the left lower extremity. Pain localizes to the area of the left groin but patient is unable to provide a precise location of the pain around the hip. Otherwise, no tenderness to palpation of the forefoot, midfoot, hindfoot, ankle, leg, knee, thigh. No areas of induration or fluctuance. -Diminished sensation to the level of the ankle. - 5/5 strength in tibialis anterior, gastroc soleus complex, EHL, FHL; 5/5 strength in quads, hamstrings, 2/5 hip flexors, limited secondary to pain. -Palpable DP pulse. Labs: WBC/Hgb/Hct/Plts: 14.68/12.3/34.7/200 (12/22 2034) Na/K/Cl/CO2: 129/4.7/90/18 (12/22 2034) BUN/Cr/glu/ALT/AST/amyl/lip: 15/0.65/282/23/49/--/-- (12/22 2034) ESR: >100 CRP: 335 HgbA1c: 14.8 (05/20/2020) Diagnostic Imaging: - AP and crosstable lateral of the left hip show severe loss of joint space, subchondral sclerosis,subchondral bone cysts. - AP oblique and lateral of the right foot show postsurgical changes from a TMA, sign of soft tissue wound on the plantar aspect of the foot, signs of bone loss over the base of the fifth metatarsal. -CT scan of the left hip demonstrates advanced osteoarthritis however no fluid collection, abscess appreciated. Procedure: Incision and debridement of right foot diabetic ulcer Obtained verbal consent. Risks, benefits, and alternatives discussed. Patient elected to proceed with excisional debridement of right foot wound. Patient was prepped and draped in standard sterile fashion. The circumferential 1 cm of callus was excised with a 10 blade to healthy bleeding tissue. The deep fibrinous tissue was sharply debrided all the way down to the bone of the distal aspect of the fifth metatarsal. A bone culture was collected. The 3 cm by 3 cm area was further debrided. Wound probed to bone. Wound was irrigated with 500 cc of sterile normal saline. Wound was dressed with wet-to-dry gauze dressing covered with ABD pads and wrapped in Kerlix. The patient was then taken to the fluoro suite where we discussed the benefits, alternatives, and risks of aspiration of the left hip. The anterior left hip was prepped with chlorhexidine and sterileblue towels. Landmarks were identified with the assistance of fluoro. A 20 gauge needle was placed under the skin and 10cc of 1% lidocaine was injected. We then used an 18 gauge spinal needle was inserted down to the femoral neck. Appropriate placement of the needle was confirmed with fluoro. He had a dry aspirate. The needle was re positioned several times which also led to dry tap. 5cc of Omnipaque was then injected into the hip confirming filling of the capsule. Aspiration was again attempted but no fluid was present in the joint. Post-procedure exam unchanged. Dr. Hernandez was present for the procedure Assessment: Jeff Scott [id number] 1960 Jeff Scott is a 60 y.o. male with past medical history brain tumor, type 2 diabetes, right foot ulcer, osteoarthritis of the left hip who presents with severe left hip pain and an infected ulcer of the right foot. In regards to his hip pain, this is likely an osteoarthritic flare given the dry tap and severe osteoarthritis. We attempted to aspirate the hip and there was no fluid. CT with contrast showed no fluid collection. It is unlikely that the hip is a source for the patient's elevated inflammatory markers. In addition to the systemic infection caused by the ulcer on his right foot, heis also demonstrating early signs of DKA. Bone biopsy and blood cultures are pending. Patient is admitted to the medicine service for ongoing management of his diabetes and diabetic foot wound. We broached the topic that the patient may need a BKA in the future if his infection cannot be kept undercontrol. Dr Gonzales will be seeing the patient in the AM. Plan: 1. No further acute orthopaedic intervention 2. Admitted to the medicine service for management of his diabetic foot wound and DKA. 3. HWB RLE with darco shoe, otherwise AAT 4. Dressing changes: Daily with 4x4s and kerlix 5. Aggressive elevation 6. Antibiotics per medicine 7. Recommend torodol x6 doses, anti inflammatories, robaxin for hip pain. 8. PT eval 9. Okay for diet from orthopedic perspective 10. Okay for DVT prophylaxis from orthopedic perspective 11. On discharge patient should follow up in the podiatry clinic. We will place a referral. 12. The orthopedic foot and ankle team will continue to follow while the patient is in-house. Discussed with: Dr. Keyes, Dr. Christian Venegas MD 12/23/2020 10:13 I am post-call today and will not be able to answer calls. Please direct calls to orthopaedics PA/OFFAL WORKER for further questions. * Pierre Martinez MD - 12/23/2020 0009 EDT MICU CONSULT NOTE DATE OF SERVICE: 12/23/2020 REQUESTING PHYSICIAN: ZEKE This is a 60 y.o. male with a medical history significant for poorly controlled DMII on insulin presenting to the ED with acute onset left sided hip pain with concurrent fever. Given concern for septic arthritis underwent diagnostic tap without evidence of infection. Medicine contacted for admission given inability to ambulate. Labs notable for an anion gap metabolic acidosis with an elevated beta-hydroxybutyrate with concern for euglycemic DKA. While in the ED, the patient received the following treatments for acidosis: 2L IV fluids Denies acute concerns. Questioning when he will be admitted to the hospital. Endorses feeling famished as he has not eaten since the weaver dobby loom of 12/22/20. Denies nausea or vomiting. Did not takebedtime bedside insulin on 12/22/20 as patient was being evaluated in the ED. Glucose typically runs in the upper 100s. Denies lows. ROS A 12-point review of systems was obtained and otherwise negative unless noted in HPI. PAST MEDICAL HISTORY has Late effect of intracranial injury (HCC); Craniopharyngioma (HCC-CMS) (HCC); Memory loss due tomedical condition; Hypothyroidism; Osteoarthritis of left hip; Acute osteomyelitis of phalanx of foot (HCC-CMS) (HCC); Type 2 diabetes mellitus with diabetic polyneuropathy, with long-term current use of insulin (HCC-CMS) (HCC); Hyperplastic polyp of descending colon; Diabetic foot infection (HCC-CMS) ([facility]); and Acute osteomyelitis of right ankle or foot ([facility]) ([facility]) on their problem list. PAST SURGICAL HISTORY has a past surgical history that includes brain surgery; Eye surgery; Foot surgery (Right, 03/23/2016); and Foot surgery (Right, 10/05/2019). MEDICATIONS (Not in a hospital admission) OBJECTIVE: VS Vital Signs Temp: [38 ??C (100.4 ??F)] , Heart Rate: --, Resp: [18] , BP: (132)/(83) , SpO2: [100 %] EXAM Gen: NAD, nontoxic appearing, jovial HENT: normocephalic, atraumatic. Pupils round, equal and reactive CV: Regular, S1, S2, no murmurs Lungs: Clear to auscultation bilaterally. No rales, rhonchi, or wheezing Abd: Soft, non-distended, normoactive bowel sounds, non-tender Ext: No edema, clubbing or cyanosis; deferred examination of the left hip given pain Skin: Warm and dry; no rashes or lesions MSK: No joint deformity or warmth Neuro: AAOx3, non-focal Psych: appropriate, cooperative, pleasant LABS - personally reviewed IMAGING - personally reviewed ASSESSMENT Jeff Scott is a 60 year old with poorly controlled DMII on insulin presenting to the ED with acuteonset left sided hip pain with concurrent fever. Given concern for septic arthritis underwent diagnostic tap without evidence of infection. Medicine contacted for admission given inability to ambulate. Labs notable for an anion gap metabolic acidosis with an elevated beta- hydroxybutyrate with concern for euglycemic DKA. Patient is not taking a SGLT which is classically associate with euglycemic DKA. Clincally patient endorses fasting for +18 hours due to inability to ambulate to retrieve food and ongoing NPO status with evaluation in the ED. Question if patient has a component of starvation ketosis. This is compounded by missed WORKERS' COMPENSATION MAGISTRATE insulin dosing. I favor allowing patient to eat given no impending operations and giving both mealtime and long acting insulin. I anticipate with eating ketogenesis will resolve, lab work will improve, and patient will be stable for admission to the floor. - 45 units glargine now (WORKERS' COMPENSATION MAGISTRATE dose) - 10 units aspart (WORKERS' COMPENSATION MAGISTRATE mealtime dose) plus SSI now - Advance diet - Repeat electrolytes 2 hours after meal/insulin MICU team was requested to assess Mr. Scott for potential MICU admission. Does the patient meet any critical care criteria? No. Defer pending interventions above with repeatlabs. If there is any change in the patients clinical status or if there are any questions, please do nothesitate to call. Patient was discussed with Dr. Hernandez and Dr. Steen. Pierre Martinez M.D. Department of Pulmonary/Critical Care Medicine Adolescent Medicine Specialist, F-1 Available on cortext Cosigned by Makeda Steen DO at 12/23/2020 6:35 EDT Associated attestation - Makeda Steen DO - 12/23/2020 0635 EDT MICU ATTENDING ADDENDUM: Attestation statement: I saw and examined Mr. Scott. I agree with the findings and plan of care documented in the resident's/fellow's note. I independently reviewed all labs and radiology images as well as laboratory results. Makeda Steen DO MICU Attending 12/23/2020 documented in this encounter OR Notes * OR Surgeon - Edson Arzate MD - 12/29/2020 2018 EDT Date of Surgery: 12/29/2020 Attending Surgeon: Edson Arzate MD [employer] Surgeon: Dr. Gilda Black, Dr. Weinstein [facility] [place] Diagnosis: Right lower extremity chronic osteomyelitis of the foot Postoperative Diagnosis: Same Procedure Performed: Right transtibial amputation Anesthesia: General Endotracheal and popliteal fossa and abductor canal blocks Operative Indications: Jeff Scott is a 60 y.o. male who presents for right foot chronic osteomyelitis. He has previously underwent a amputation of second and third toes followed by a transmetatarsal amputation. He has subsequently reulcerated and has developed purulent drainage osteomyelitis anddestruction of bone. The amount of debridement in order to clear out the infection would leave him little remaining bone to continue to have a functional foot and therefore a transtibial amputation was recommended. I have discussed in detail the risks, benefits, alternatives of the procedure and these include but are not limited to bleeding, infection, damage to neurovascular structures, need foradditional surgery or revision surgery, anesthetic complication, allergy to administered medications, deep veinous thrombosis, persistent pain, swelling, stiffness, scar irritation, inability to return to desired level of function. Description of Procedure: Jeff Scott was identified in the preoperative holding area where they were greeted, the history and physical was updated, the right lower extremity was properly initialed, the surgical consent was reviewed, and antibiotics were noted to be on the intravenous line. He was brought back to the operating room where the initial checklist was performed and then he underwentthe induction of General Endotracheal. He was positioned supine on the operating table padding bonyprominences appropriately. A non-sterile tourniquet was applied to the right thigh over multiple layers of webril. A SCD was placed on the non-surgical limb. The right lower extremity was prepped anddraped in the usual sterile fashion. A preoperative brief was conducted confirming the correct patient, extremity, procedure, administration of antibiotics, review of the patient's allergies, review of fire safety, and discussion of the postoperative plan. All in the room were in agreement. The right leg was elevated for 5 minutes and then the tourniquet was inflated to 250 mmHg. Approximately 15 cm below the tibial tubercle are flaps for a long posterior flap the area created with the marker. The skin was incised using 15 blade and dissection was carried down to the fascia on the lateral side. The fascia was incised transversely and the anterior compartment of the muscles appeared healthy without any sign of purulence. Using a hemostat and Bovie the anterior compartment musculature was transected with the cautery. The anterior neurovascular bundle was then identified on the interosseous membrane. The deep peroneal nerve was identified first it was isolated placed under traction and cut sharply with a 15 blade to rule out to retract into the proximal tissues. The anterior tibial artery and vein were then identified clamped and cut and tied with 0 Vicryl ties. I then located the superficial peroneal nerve more laterally in the deeper musculature and found it distally retracted more proximally and then placed it under tension and cut it sharply with a 15 blade. The remainder of the lateral compartment and lateral compartment were then transected. Along the medial aspect the saphenous vein was identified and just posterior to that the saphenous nerve. Saphenous vein was dissected free clamped with hemostats cut and tied with 0 Vicryl tie. The saphenous nerve was placed under tension cut proximally and allowed to retract. The medial aspect was then dissected to theposterior medial limb and this was cut through with a knife as was the posterior lateral limb. Placing a Anna clamp beneath the tibia and utilizing a fan elevator to elevate the anterior periosteum the oscillating saw was then used to cut through the midshaft of the tibia using irrigation to prevent heat necrosis. The fibula was then isolated and protected with the curved and of a Will retractor and cut approximately 1-1/2 cm proximal to the tibial cut. The curve of the hips were prepped tractor was placed within the distal tibial canal and then the bone hook was placed into the fibula and these were brought anteriorly. The amputation knife was then used to cut the posterior tissues directly off the tibia and fibula. And then the amputation was completed posteriorly. The right leg was then placed into a specimen bag. The deep posterior compartment was elevated revealing the posterior neurovascular bundle. The tibial nerve as well as posterior tibial artery and vein were dissected up near the distal aspect of the tibia and then the tibial nerve was placed under tension and cut sharply with a 15 blade. The posterior tibial vascular bundle was clamped and 2-0 Vicryl suture ligatures were placed around this. The anterior tibia was then beveled using the oscillating saw and at thispoint the lamina and wound was irrigated with normal saline. The tourniquet was deflated after being up for 42 minutes. Hemostasis was then achieved with judicious use of the electrocautery. And thenthe posterior flap was brought anteriorly with the posterior fascia and the Achilles sutured to theanterior fascia over the tibia using 0 Vicryl. The fascia was continued to be closed both medially and laterally with 0 Vicryl followed by the subcutaneous layer using 2-0 Monocryl and then 3-0 Prolene was utilized in the skin. With the closure of the skin there was no tension on the skin and therewas excellent shape of the residual limb. The wound was then cleaned and dressed with Xeroform fluffed burn dressing followed by web roll and then a posterior plaster splint which was brought over the anterior aspect of the residual limb for protection. He then was extubated transferred to his hospital bed and brought to the recovery room in stable condition. Sponge and needle counts were correct. There were no obvious intraoperative complications. There was no sign of infection. * OR PreOp - Carmelita Alas RN - 12/29/2020 0936 EDT PREOP INPATIENT NURSING NOTE Preop nurse OR prep note Inpatient nurse: Glo Notified unit nurse to complete pre-op checklist. IV Access: #20 in Left hand, infusing, patent Site marked and verified (if indicated): Right leg with faint MD initials Anesthesia consent complete: Verified with patient, placed in front of chart Surgical consent complete: Verified with patient, placed in front of chart Labs: Covid negative 12/28 COVID Status: __x_ Vaccinated ___ Verified in Chart ___ Unvaccinated Unvaccinated, unknown vaccination status, ED admissions, and symptomatic patients require a COVID test Last Void: incontinent of urine UPT: n/a Last food: prior to mn 12/28 last liquid: sips of clears with medications Belongings: at bedside EKG: Hardware/Pacemaker: n/a Pre Op medication plan established with Anesthesia ( if applicable): n/a Last dose of anticoagulant and/or antiplatelet if applicable: Internal Control Charge Nurse: [phone] OR nurse will call to floor if further report is needed. Other issues identified: Pt with lidocaine patch in place, nursing to remove prior to going to the OR In coordination with inpatient nurse, this patient and chart has been reviewed for OR readiness. Pre Op PIN Nurse [phone] documented in this encounter ED Notes * Jocy Hess RN - 12/23/2020 0934 EDT Admitting team at bedside * Renata Rob RN - 12/23/2020 0717 EDT 0600- assumed care. Pt noted to be febrile, Tylenol given. C/o left hip pain, no complaints of right foot pain, pt generally uncomfortable appearing. Oriented to self/situation, when prompted he is oriented to place, although will talk about being in the car or a barn - pt with hx of brain tumor. Able to self position in bed. Right foot wound with dressing in place, elevated. Vanc infusing 0700- spoke with lab, pt without blood cultures in process, MD odrsey, will draw 1st set obtained and sent 0750- Spoke with pts who reports the pt does have cognitive delays, needs frequent redirectingfor short term memory issues, but is not confused at baseline. MD dorsey. 0930- Med Team at bedside for eval, pt now afebrile, reports improved left hip and right foot pain,used hand held urinal in bed. 1330 - blood sugar 319, Insulin given per MAR, food tray delivered, pt reports improved left hip and right foot pain, appears more comfortable than earlier this AM 1400- pt self repositioned to right side, has significant pain with moving around. aware, will give pain meds, remains afebrile * Charity Rahman, JARVIS - 12/23/2020 0411 EDT Admitting MD at bedside * Mary Ann Pinto MD - 12/23/2020 0356 EDT I, Arleth Morgan, am scribing for Mary Ann Pinto MD while he/she is personally performing the service. Arleth Morgan 12/23/2020 3:56 Jeff Scott is a 60 y.o. male with history of T2DM, hypothyroidism, osteomyelitis, and arthritis who presents to the ED for evaluation of left hip pain. Patient was ascending the stairs yesterday when he slipped and fell causing him to twist and fall and strike his back on the railing. He's been h aving worsening left hip pain since incident which prompted ED evaluation. Care and work-up prior to sign out includes: Labs which were most notable for CRP 225, sodium 129, WBC 14.68. X-ray imaging of right foot was most significant for: transmetatarsal amputations at the level of the proximal aspects of the first through fifth metatarsals. Plantar skin and subcutaneous soft tissue ulcer at about the level of the transmetatarsal amputations. There is prominent soft tissue swelling surrounding the ulcer and extending throughout the foot. Osseous irregularity at the amputation margins may be postsurgical X-ray imaging of left hip revealed: severe osteoarthrosis involving the left hip joint. Milder degenerative changes noted in the visualized lower most portion of the incompletely imaged left SI jointand along the pubic symphysis. Vasectomy surgical clips are partially imaged. Patient's symptoms were treated with IVF and IV Toradol. Orthopedics was involved in patient's careat the time of sign-out. I assumed care of patient from Dr. Hernandez with Orthopedic debridement and likely admission pending.Repeat labs were also pending at the time that I assumed care. After I assumed care the patient had: Orthopedics debrided patient's wound on right foot. Patient had labs that were reviewed independently by myself, significant for sodium stable at 129, CO2 22, improved from 18. The patient was treated with 500mg IV Flagyl, 2g IV cefepime, 2,250mg IV vancomycin. Admitting hospitalist was made aware of patient's visit thus far and need for admission for furthermanagement of diabetic foot infection. They agreed that the patient was appropriate and stable for admission to their service. The patient was admitted to Medicine under the care and supervision of Dr. Segovia for further evaluation and treatment. Please refer to progress notes for further details regarding the remainder of patient's care. Final diagnoses: Diabetic foot infection ([facility]) ([facility]) This documentation is recorded by Arleth Morgan acting as Scribe under the direction and presence of Dr. Pinto. I, Mary Ann Pinto MD, have utilized a scribe to help in the preparation of this note. I have reviewed and agree with the scribe's note and I have made modifications as necessary. * Arianne Harkins RN - 12/23/2020 0151 EDT 1:51 ortho at bedside, anbx held per ortho request, would like to collect wound culture prior to anbx admin * Charity Rahman RN - 12/22/2020 2326 EDT Nguyen Scott, , wants update in [phone] * Arianne Harkins RN - 12/22/20202038 EDT 20:39 labs collected and sent * Charity Rahman RN - 12/22/20201949 EDT 1930: Patient arrives via EMS from home after fall down 3-4 stairs last night, no LOC. Woke up today with increased pain, difficulty moving leg d/t pain. CSM intact to left leg. No obvious deformities. Of note, pt with open wound to bottom of R foot, febrile at 100.4, denies pain.problem associatedwith R foot. 1950: provider at bedside. Verbal order for 15mg Toradol IV * Alessandro Hernandez MD - 12/22/20201945 EDT This patient received an evaluation and medical screening exam for emergent medical conditions at the [facility] on 12/22/2020 Scribe Attestation: This documentation is recorded by Clarita Hernandez acting as Scribe under the direction and presence of Alessandro Hernandez MD. Alessandro Hernandez MD: I personally performed the services recorded by the scribe in my presence. I confirm the scribe's documentation has been reviewed by me to accurately and completely record my work, treatment, procedures, and medical decision making. Chief Complaint Chief Complaint Patient presents with ??? Hip Pain patient arrives via EMS from home yesterday with complaints of 10/10 L hip pain, L butt pain, and Femur pain. -LOC, no thinners, + pulses to left foot. VSS on arrival, febrile. ??? Wound Check hxc diabetes, open wound to bottom of R foot, febrile 100.4 HPI Jeff Scott is a 60 y.o. male with a history of type 2 diabetes, hypothyroidism, arthritis, craniopharyngioma, osteomyelitis of the right foot who presents to the ED for left hip pain. The patient reports that he has a long history of arthritis in his left hip. Yesterday, the patient slipped while walking up the stairs causing him to twist and fall striking his back on the railing. He denies head strike or loss of consciousness. The patient has been able to walk with some difficulty. History was provided by: Patient and medical records Patient's pertinent PMH, FH, and SH were reviewed and updated PRN. ROS Review of Systems Constitutional: Positive for fever. Respiratory: Negative for shortness of breath. Cardiovascular: Negative for chest pain. Musculoskeletal: Positive for arthralgias and myalgias. All other systems reviewed and are negative. The patient???s past medical, family, and social history was reviewed and updated as needed. No Known Allergies Physical Exam Vital Signs Temp: 38 ??C (100.4 ??F) Temp src: Oral Pulse: 63 Resp: 18 SpO2: 100 % BP: 132/83 O2 Device: None (Room air) Physical Exam Vitals and nursing note reviewed. Constitutional: General: He is not in acute distress. Appearance: He is well-developed. He is not diaphoretic. HENT: Head: Normocephalic and atraumatic. Eyes: General: No scleral icterus. Right eye: No discharge. Left eye: No discharge. Pulmonary: Effort: Pulmonary effort is normal. No respiratory distress. Abdominal: General: There is no distension. Palpations: Abdomen is soft. Musculoskeletal: General: Tenderness (Diffuse over the left hip, pain with movement ) present. 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 Findings: No rash. Comments: Clean ulcer on the bottom of his right foot, does not probe to bone, foot non tender and non erythematous Neurological: Mental Status: He is alert and oriented to person, place, and time. Psychiatric: Behavior: Behavior normal. Laboratory Results Labs Reviewed COMPLETE BLOOD COUNT AND DIFFERENTIAL - Abnormal Result Value Status WBC 14.68 (*) Final RBC 3.94 (*) Final Hemoglobin 12.3 (*) Final HCT 34.7 (*) Final MCV 88 Final MCH 31.2 Final MCHC 35.4 Final RDW-CV 12.4 Final RDW-SD 40.4 Final PLT 200 Final MPV 11.1 Final Type of Differential: Manual Final COMPREHENSIVE METABOLIC PANEL (CMP) - Abnormal Sodium 129 (*) Final Potassium 4.7 Final Chloride 90 (*) Final CO2 Total 18 (*) Final Glucose 282 (*) Final BUN 15 Final Creatinine 0.65 (*) Final eGFR 106 Final Total Protein 7.4 Final Albumin 3.8 Final Alkaline Phosphatase 78 Final AST 49 (*) Final ALT 23 Final Bilirubin, Total 1.5 (*) Final Calcium 8.8 Final Calculated Calcium 9.0 Final C REACTIVE PROTEIN - Abnormal C-Reactive Protein 335.3 (*) Final SED. RATE:WESTERGREN - Abnormal Sed. Rate Westergren >100 (*) Final DIFFERENTIAL, AUTOMATED MANUAL - Abnormal Neutrophils 78.3 Final Banded Neutrophils 10.4 Final Lymphocytes 3.5 Final Monocytes 7.8 Final Absolute Neutrophils 11.49 (*) Final Absolute Bands 1.53 Final Absolute Lymphocytes 0.51 (*) Final Absolute Monocytes 1.15 (*) Final BETA HYDROXYBUTYRATE - Abnormal Beta Hydroxybutyrate 4.2 (*) Final POCT GLUCOSE, INTERFACED - Abnormal Glucose, POC 270 (*) Final HN LAB POC COMMENT (GLUCOSE) Test Performed by Nursing Services Final LACTIC ACID - Normal Lactic Acid 1.6 Final COVID-19 TESTING COVID-19 rt-PCR Result Negative Final Performing Lab [facility] Lab Final COVID-19 TEST [facility] LAB PCR BACTERIAL CULTURE, BLOOD BACTERIAL CULTURE, BLOOD ANAEROBE CULTURE/SMEAR(INC. AEROBES), OTHER ANAEROBE CULTURE/SMEAR(INC. AEROBES), OTHER HOLD GREEN TOP Hold Hold Final HOLD BLUE TOP Hold Hold Final SYNOVIAL CELL COUNT Narrative: The following orders were created for panel order SYNOVIAL CELL COUNT. Procedure Abnormality Status --------- ------ SYNOVIAL FLUID CELL COUNT[[id number]] Please view results for these tests on the individual orders. CRYSTAL ANALYSIS FLUID ONLY SYNOVIAL FLUID CELL COUNT BASIC METABOLIC PANEL (BMP) Procedures Procedures MDM MDM Number of Diagnoses or Management Options Diabetic foot infection ([facility]) ([facility]) Diagnosis management comments: 60-year-old male history of diabetes presenting with severe left hippain after a low impact fall yesterday. Patient was found to be febrile and has a large ulcer on the stump of the right foot. Patient had severely elevated inflammatory markers including a very high CRP and ESR concern for possible diabetic foot infection however given the excruciating degree of hip pain and pain with movement I am also concerned of a possible septic arthritis in the left hip. Orthopedic surgery was consulted performed a hip arthrocentesis with no return of synovial fluid low suspicion for septic arthritis given no joint effusion on exam. They feel this is more than adequate. Bedside debridement was performed, per orthopedic recommendations antibiotics were held prior to debridement. Antibiotics were subsequently administered after debridement and bone culture was obtained. Patient was also found of a mild gap acidosis consistent with euglycemic DKA. Clinically he was not vomiting. He was treated with IV fluids. The case was also discussed with the medical intensive care unit for the possibility of admission and insulin drip they recommended subcutaneous insulin andreevaluation of the patient's gap. Patient was signed out to the overnight MD pending recheck of the patient's CMP after administration of insulin if the gap is closing the patient can likely be admit nena to the medical service. ED Course A medical screening was performed. The patient is a 60 y.o. male with a history of type 2 diabetes, hypothyroidism, arthritis, craniopharyngioma, osteomyelitis of the right foot who presents to the ED for left hip pain. Patient had labs that were reviewed independently by myself, significant for C reactive protein 225.3, sodium 129, WBC 14.68. The patient had a right foot X-Ray which was significant for: There are transmetatarsal amputations at the level of the proximal aspects of the first through fifth metatarsals. Plantar skin and subcutaneous soft tissue ulcer at about the level of the transmetatarsal amputations. There is prominent soft tissue swelling surrounding the ulcer and extending throughout the foot.Osseous irregularity at the amputation margins may be postsurgical. If there is a high degree of clinical concern for osteomyelitis then MR imaging can be obtained to further evaluate for this possibility. Degenerative joint changes and calcaneal enthesopathic changes are similar compared to the prior study. Atherosclerotic arterial calcification is again noted. Patient had X-Ray that was obtained, reviewed, and interpreted by myself along with a radiologist. Please see radiology report for further details. The patient had a left hip X-Ray which was significant for: There is severe osteoarthrosis involving the left hip joint. Milder degenerative changes noted in the visualized lower most portion of the incompletely imaged left SI joint and along the pubic symphysis. Vasectomy surgical clips are partially imaged. The bones appear diffusely demineralized. The severity the osteopenia reduces radiographic sensitivity for the detection of a subtle or nondisplaced acute fracture if present. Also, with overlying soft tissues obscuring the region of the interest on the crosstable lateral view including the femoralhead and neck. Patient had X-Ray that was obtained, reviewed, and interpreted by myself along with a radiologist. Please see radiology report for further details. 2042: The patient was given 15 mg IV Todadol 2222: The patient was hydrated with 1L LR Patient signed out to Dr. Pinto with Orthopedics debridement and further labs of the foot pending. Clinical Impression Final diagnoses: None Disposition Signed out (see progress note for detail) The patient's pain was managed to an adequate level weighing risk vs. Benefit of further medications. At the end of my care of this patient, the patient's pain was 1 on a zero to ten scale. Any further pain treatment will be at the discretion of the provider following up with the patient based on their clinical assessment. The patient's condition at the end of my care: Stable documented in this encounter Miscellaneous Notes * Plan of Care - Ana Laura Salomon RN - 01/21/2021 1018 EST Nursing Discharge Note D: Patient noted with discharge orders to: [facility] A: PICC removed by IV nurse this morning, dressing intact. Belongings collected and sent home with patient. Report called to JARVIS Valerio at [facility]. R: Patient verbalized understanding of discharge instructions and denied further questions. ANA LAURA SALOMON RN 01/21/2021 10:35 * Plan of Care - Mars Ledezma - 01/21/2021 0933 EST 01/21/21 0915 Medicare IM Notice IM notice status Patient received notification verbally and in writing while in hospital. IM notice given at discharge? Yes * Plan of Care - Yo Freitas RN - 01/21/2021 0345 EST Data: Assumed care of pt at 1900. A&Ox3 with some confusion. VSS. Pt has indwelling scanlon in place and draining tea colored urine. Pt c/o 10/10 pain in the left hip. Action: Meds administered per MAY. Administered PRN morphine for pain. Assessment complete. Hourly safety checks complete. Care clustered to promote rest. Response: No acute events this shift. Pt resting comfortably in bed. Safety maintained. Call larson within reach. Will continue to monitor for remainder of shift. YO FREITAS RN 01/21/2021 3:45 * Plan of Care - Kristina Dawn RN - 01/20/2021 1609 EST Problem: Daily Care Plan Goals Goal: Care Plan Documentation Outcome: Ongoing Flowsheets (Taken 01/20/2021 0705) Area of Focus: Pain/ Comfort Goal This Shift: (Patient will maintain tolerable pain levels) -- Data: Assumed care at 0700. Patient is pleasant. Patient reports pain on left hip. Patient went to get a CT Urogram. Patient encouraged to drink water prior to CT. Patient returned in stable condition. Patient had a bowel movement today. Action: Scheduled pain medications administered. Patient's pain level range from 8 to 10. Response: Patient continues to have ongoing pain during shift. KRISTINA DAWN RN 01/20/2021 16:09 * Plan of Care - Murray Garcia MD - 01/20/2021 1444 EST Urology Brief Update Note Please obtain urine cytology and CT urogram prior to discharge. Patient can have a voiding trial on Sunday at rehab. Outpatient follow-up with Dr. West for gross hematuria evaluation - Cystoscopy, review of urine cytology and CT Urogram (obtained as inpatient) Follow up with Dr. West in 1 month, we will arrange. Urology to sign off at this time. Than you for involving us in the care of your patient. Please page us for further questions or concerns. Weekdays page the Urology Service Pager #[phone], nights after 5pm and weekends page through [employer]. MURRAY GARCIA MD 01/20/2021 16:13 * Plan of Care - Erica Parikh RN - 01/20/2021 0035 EST Problem: Daily Care Plan Goals Goal: Care Plan Documentation Outcome: Ongoing Data: Assumed care at 1900. Alert and oriented to person, place and time with episodes of forgetfulness. Continues on IV antibiotic therapy with tolerance. Indwelling scanlon catheter patent and draining clear nilson colored, odorless urine. C/O 8-10/10 right hip pain. Action: Medication administered as ordered, see MAR. Care clustered to promote sleep and comfort. Response: In bed with eyes closed at present. ERICA PARIKH RN 01/20/2021 0:37 * Plan of Care - Kristina Dawn RN - 01/19/2021 1608 EST Problem: Daily Care Plan Goals Goal: Care Plan Documentation Outcome: Ongoing Flowsheets (Taken 01/19/2021 0739) Area of Focus: Pain/ Comfort Goal This Shift: (Patient will maintain tolerable pain levels) -- Data: Assumed care at 0700. Patient is AOX3. Patient asked my name every time I went into the room.Patient reported severe pain on left hip. Patient had a large bowel movement today. Action: Scheduled and PRN pain medication administered. Pain remained. Applied Lidocaine patch, diclofenac sodium gel, and hot pad to affected area. Pain limited patient's ability to turn from side to side. Response: Patient maintained ongoing pain levels during shift. KRISTINA DAWN RN 01/19/2021 16:08 * Plan of Care - Erica Parikh RN - 01/19/2021 0054 EST Problem: Daily Care Plan Goals Goal: Care Plan Documentation Outcome: Ongoing Data: Assumed care at 1900. Alert and oriented with episodes of forgetfulness, requiring frequent reminders. C/O 8/10 left hip pain. Continues on IV antibiotic therapy with tolerance. Indwelling scanlon catheter patent and draining clear pink odorless urine. Action: Medication administered as ordered, see MAR. Care clustered to promote sleep and comfort. Safety maintained. Response: In bed with eyes closed at present. ERICA PARIKH RN 01/19/2021 0:54 * Plan of Care - Jordyn Salinas RN - 01/18/2021 1557 EST Data: Patient is A&Ox2, occasionally forgetful. Complaints of 9/10 left hip pain with intermittent muscle spasms to the same area. Able to sit at the edge of the bed with PT, patient is hopeful to try to stand and potentially ambulate the next time PT visits. Complaining of itchiness to the back, lotion applied with positive effect. Miralax given and the patient had 2 large BMs this shift. Action: Answered some of the patients questions regarding prosthetic devices. Medications administered per eMAR, care clustered to promote rest. Hourly safety rounds completed. Response: Patient resting comfortably in bed. Call larson within reach, will continue to monitor. JORDYN STREETER RN 01/18/2021 15:58 * Plan of Care - Erica Parikh RN - 01/18/2021 0027 EST Problem: Daily Care Plan Goals Goal: Care Plan Documentation Outcome: Ongoing Data: Assumed care at 1900. Alert and oriented to person, place, and time with episodes of forgetfulness. C/O 9/10 left hip pain. Continues on IV antibiotic therapy. Scanlon catheter patent and draining nilson/red tinged colored urine, Dr Ayers notified. Action: Medication administered as ordered, see MAR. Care clustered to promote sleep and comfort. Safety maintained. Response: In bed with eyes closed. ERICA PARIKH RN 01/18/2021 0:28 * Plan of Care - Lesly Smith RN - 01/17/2021 0331 EST Data: Assumed care at 1900. Pt A&Ox3 with short term memory loss. Pt c/o 8-9/10 pain in left hip and leg. Scanlon in place and was draining bloody urine with blood clots. Provider aware. Action: Meds given per MAR. Clustered care to promote rest. Hourly checks. Shift assessment completed. Repositioned pt. Response: Pt is in bed resting. Call larson within reach, pt able to make needs known. Will continue to monitor. LESLY SMITH RN 01/17/2021 3:31 * Plan of Care - Erica Parikh RN - 01/16/2021 0000 EST Problem: Daily Care Plan Goals Goal: Care Plan Documentation Outcome: Ongoing Data: Assumed care at 1900. Per nursing report pt no void throughout day shift requiring straight cath at 1000 for 650ml, pt then bladder scanned by day nurse at [address] Arreaga contacted at 1930 to discuss plan in the setting of no void post scanlon removal requiring straight cath on day shift. Dr Arreaga requested another bladder scan at that time, which showed 900ml. Dr Arreaga notified and new order obtained to insert indwelling scanlon catheter with special instructions given to not remove scanlon without urology/primary team consult. At 2112 a 16 Fr/ 10ml balloon scanlon catheter inserted with 850ml clear yellow odorless urine returned. Pt tolerated the scanlon insertion. Scanlon patent and draining at present. Action: Medication administered as ordered, see MAR. Indwelling urinary scanlon insertion. Care clustered to promote sleep and comfort. Response: In bed with eyes closed. ERICA PARIKH RN 01/16/2021 0:00 * Plan of Care - Erica Parikh RN - 01/15/2021 0045 EST Problem: Daily Care Plan Goals Goal: Care Plan Documentation Outcome: Ongoing Data: Assumed care at 1920. Alert and oriented to person, place and time with episodes of forgetfulness. Continues on IV antibiotic therapy with verbalized tolerance. Pt due to void post scanlon cath removal at 2300. No void this shift- bladder scanned at 2300= 354ml, denies complaints of urinary urgency/bladder pressure, pain, discomfort. Dr Arreaga informed at 2336 and plan is to re-scan in am. Action: Medication administered as ordered, see MAR. Care clustered to promote sleep and comfort. Safety maintained. Response: In bed with eyes closed. ERICA PARIKH RN 01/15/2021 0:45 * Plan of Care - Chris Auguste RN - 01/14/2021 1824 EST Problem: Daily Care Plan Goals Goal: Care Plan Documentation Outcome: Met This Shift Flowsheets (Taken 01/14/2021 0700) Area of Focus: Pain/ Comfort Goal This Shift: Pt will have adequate pain management Problem: Cognitive: Goal: Mental status/cognition is maintained/returned to baseline Outcome: Ongoing Data: Assumed care of pt at 0700, AOX3 but appears to have short term memory. Pt reports 10/10 painin left hip that is tolerable at rest but severe with movement. Pt reports constipation and has a scanlon in place draining clear yellow urine for acute retention. BGFS 65 before lunch. Action: Hourly checks performed, meds given per MAR plus PRN morphine pre turning and repositioning. Sea Gomez MD notified of low blood sugar, insulin held with lunch. Assisted pt with disimpacting large hard stool, reports less discomfort after passing this. Bed pad change, scanlon care performed and then removed with agreement from . Response: Pt is due to void at 2300, reports little decrease in pain with morphine but states it keeps the edge off. Pt is tearful at times stating he feels weak. Emotional support provided, pt is resting comfortably in bed, consumes 100% of his meals, dinner blood sugar in 170's. Safety maintained throughout shift. Maintained right leg in a straight position per orders. CHRIS AUGUSTE RN 01/14/2021 18:24 * Plan of Care - Eriac Parikh RN - 01/14/2021 0157 EST Problem: Daily Care Plan Goals Goal: Care Plan Documentation Outcome: Ongoing Data: Assumed care at 1920. Alert and oriented to person, place and time with episodes of forgetfulness. C/O 9/10 left hip pain. Continues on IV antibiotic therapy with verbalized tolerance. Action: Medications administered as ordered, see MAR. Care clustered to promote sleep and comfort. Safety maintained. Response: In bed with eyes closed. ERICA PARIKH RN 01/14/2021 1:57 * Plan of Care - Blanca Bernal - 01/13/2021 1225 EST Problem: Daily Care Plan Goals Goal: Care Plan Documentation Outcome: Ongoing Flowsheets (Taken 01/13/2021 0800) Area of Focus: Pain/ Comfort Goal This Shift: pt will rate pain a 7/10 or less Data: Pt is a 60 y.o. male admitted on 12/22 for infection in right foot as well as left hip pain r/t osteoarthritis. Pt is diabetic and his sugars have been stable throughout the morning. Pt alert and oriented X3 but has short term memory loss d/t hx of brain tumor. Pt has excoriation on his buttocks as well as irritation on his groin. Pt complained of 10/10 pain in left hip at the start of the shift and he does not tolerate movement well. Pt complained of some constipation in the morning. Scanlon is intact and draining. Action: Hourly checks, q2hr turns, and q8hr vitals were performed. Pt was given laxatives and pain medication per MAY. Left hip area was massaged and lidocaine patch was applied for pain relief. Leftleg was stretched and repositioned as needed for comfort. Debbie care was performed and zinc spray was applied to buttocks. Response: Pt rates pain an 8/10. Pt had a small bowel movement after laxatives were given. Pt is resting comfortably in bed and call larson is within reach. Cosigned by Tangela Miguel at 01/13/2021 13:03 EST * Plan of Care - Chandana Sweeney RN - 01/11/2021 1856 EST Problem: Daily Care Plan Goals Goal: Care Plan Documentation Outcome: Ongoing Flowsheets (Taken 01/11/2021 1719) Area of Focus: Communication Goal This Shift: pt will be oriented to B3 Data: Pt arrived to [place] [address] at 1630. Pt oriented to unit and call larson. Pt is A&Ox3 with intermitent confusion/cognitive impairment due to brain surgery to remove tumor 5-6 years ago. Excoriationon buttocks and in left groin/scrotum. Strict Q2 turns due to complete pt immobility. Pt rating pain in left hip and right leg 10/10 always. When asked to rate on a scale of 0-10 pt states that justtriggered it again! I'm not doing that!. Action: Meds given per MAY. Pt turned and repositioned. Nutrashield applied to buttocks and zinc sprayed on groin. Pain reassessed. Pt reoriented to place and situation. Response: Pt is resting comfortably. Call larson in reach. No signs of acute distress. CHANDANA SWEENEY RN 01/11/2021 18:56 * Plan of Care - Fabian Mcfadden RN - 01/11/2021 1352 EST Data: Patient underwent a right foot amputation, POD 12. Patient has significant left hip pain, rated a 10/10. Patient also mentions pain in right leg. Action: Patient has been repositioned Q2 hours, and given morphine, gabapentin, and robaxin per medication orders. SCREEN VENT BINDER walked patient through therapeutic breathing exercises to calm the patient. Response: Patient continues to express intense pain in left hip, and pain with repositioning. Patient has been educated on need to reposition to prevent skin breakdown. Patient was transferred to [place] [id number]. FABIAN MCFADDEN RN 01/11/2021 13:53 * Plan of Care - Yisel Morocho RN - 01/11/2021 0144 EST Problem: Cognitive: Goal: Mental status/cognition is maintained/returned to baseline Outcome: Ongoing Problem: High Fall Risk: Goal: Patient will Remain Free of Falls due to Dizziness/Vertigo Outcome: Ongoing Problem: High Fall Risk: Goal: Patient Will Remain Free from Fall-Related Injury Outcome: Ongoing Problem: High Fall Risk: Goal: Patient will Remain Free of Falls due to Altered Mobility Outcome: Ongoing Problem: High Fall Risk: Goal: Patient will Remain Free of Falls due to Med. Side Effects Outcome: Ongoing Problem: High Fall Risk: Goal: Patient will Remain Free of Falls due to Altered Elimination Outcome: Ongoing Problem: Sensory: Goal: Ability to compensate for vision loss will be supported Outcome: Ongoing Problem: SKIN INTEGRITY Goal: Skin integrity will improve or be maintained Outcome: Ongoing Problem: Pressure Ulcer Prevention Goal: Absence Of Pressure Ulcer Outcome: Ongoing Problem: Daily Care Plan Goals Goal: Care Plan Documentation Outcome: Ongoing Problem: RISK FOR INFECTION Goal: Signs & Symptoms Of Infections Are Decreased Or Avoided Outcome: Ongoing Problem: GLYCEMIA IMBALANCE Goal: Clinical Indication Of Glycemia Balance Is Achieved Outcome: Ongoing Goal: Patient's Continuum Of Care Needs Are Met Outcome: Ongoing Problem: PAIN Goal: Patient's pain/discomfort is manageable/tolerable Outcome: Ongoing Data: Pt A&O at baseline. Pt experiences a lot of pain when having to move left leg and with T&RP q2. PT on RA and remains afebrile. No drainage or loose wraps noted on surgical leg. PICC in R arm c/d/I. Scanlon in place and draining yellow. Action: No drainage or loose wraps noted on surgical leg. BLE elevated on pillows. Buttocks checkedand debbie care done, bed pad changed., cream applied to bottom and dry areas. VS q4. Glucs checked per orders. Pt refused to change gown tonight. Response: Pt does not tolerate turning and repositioning well at all, very painful on left side. Cooperated well with staff. RN to continue to monitor YISEL MOROCHO RN 01/11/2021 1:44 * Plan of Care - Naomi Sommers RN - 01/10/2021 0618 EST D: Assumed care at 1930. Pt is 60y.o. male. HD#19 for right BKA. A&Ox3, forgetful at baseline. Pt bedbound. Pt tele showing SR. A: Medications given as ordered and per protocol. Q2 turns completed as ordered. Hourly checks. Clustered care. Environment for sleep promoted. R: Pt is resting comfortably in bed, all needs meet. Pt denies pain. Pt has call light within reachand is using call light appropriately. Naomi Sommers RN 01/10/2021, 6:18 * Plan of Care - Mono Padilla RN - 01/09/2021 0121 EDT Data: Pt is POD # 9 s/p R BKA complicated by L hip OA and severe pain. Pt is A&Ox3 with short term memory loss. Pt is intermittently fecally incontinent. Pt continues to have urinary retention. Bottom and scrotal area are blanchable, flaking, red, and irritated. Pt reports pain at a 9 out of 10at L hip. Action: Performed q2 turns. Elevated heels to prevent pressure injury. Provided medication per eMAR. Inserted scanlon catheter per orders. Applied barrier cream to scrotal area and bottom. Provided heat pack to L hip. Response: Pt states that heat pack helped reduce pain. Scanlon is draining. Fairly tolerated turns. Pt is currently resting in bed. Will continue to monitor. MONO PADILLA RN 01/09/2021 1:21 * Plan of Care - Mono Padilla RN - 01/07/2021 2309 EDT [facility] was unavailable from 12/31/2019 to 01/25/2020. All Epic clinical notes for this period were written on paper and will be scanned into Epic post discharge. MONO PADILLA RN Data: Pt is a 60 y.o. male POD # 8 s/p R BKA. Pt is A&Ox3 with short-term memory loss and VSS. Pt complains of 10/10 pain the L hip. Pt has red, flaking, blanchable skin on bottom. Action: Performed q2t. Elevated heels to prevent injury. Provided medication per eMAR. Reoriented Pt when appropriate. Applied bacitracin to bottom. Response: Pt remains A&Ox3 with impaired short term memory. Pt is able to rest after medicationadministration. Will continue to monitor. MONO PADILLA RN 01/07/2021 23:09 * Plan of Care - Norma Matos RN - 01/07/2021 1404 EDT Problem: Daily Care Plan Goals Goal: Care Plan Documentation Flowsheets (Taken 01/07/2021 0841) Area of Focus: Skin Integrity Goal This Shift: q2 turns to promote skin integrity Data: Pt is POD#8 s/p R BKA. Pt c/o 10/10 pain to L hip radiating down L leg. A&Ox3 with short term memory loss. Dressing to R BKA C/D/I. CSMTs intact. Blanchable redness to buttocks with flaky peeling skin. Action: Pt repositioned and turned q2hrs and prn as tolerated, desitin applied with turns. Medications administered per MAY. Encouraged activity as tolerated. Bladder scanned for >1000cc, MD notified, subsequently straight cathed with 1325 out. Response: Pt reports that pain is temporarily improved following pain medication but still worsens to a 10/10 with movement or manipulation of L leg. Pt is unable to tolerate turns to L side and has difficulty turning due to pain. Pt is resting comfortably at this time with VSS on RA, will continueto assess and monitor. NORMA MATOS RN 01/07/2021 14:04 * Plan of Care - Nena Allison - 01/07/2021 0960 EDT Clinician presented to pt's room for consult. Pt was asleep and unavailable for consult. Clinician spoke with pt's nurse and informed nurse of pending Adult Protective Services visit. Please page clinician if Med Psych presence during visit would be helpful. Thank you for including us in this patient's care today. Please reach out if you have any questions. Nena Allison M.S. Renewals Manager Pager #: [phone] Cosigned by Augusta Hernandez, PhD at 01/07/2021 13:29 EDT * Plan of Care - Gilda Bingham RN - 01/07/2021 0148 EDT Problem: Daily Care Plan Goals Goal: Care Plan Documentation Flowsheets (Taken 01/06/2021 1920) Area of Focus: Pain/ Comfort Goal This Shift: control pain to promote rest D - Pt is a 60 y.o. male. POD#8, S/P R BKA. Pt reports 10/10 left hip pain. A&Ox3 with intermittent forgetfulness d/t short term memory loss from prior brain tumor removal. R BKA dressing CDI. Q2H turns to prevent further skin breakdown. Buttocks with flaky and peeling skin, zinc oxide spray applied. A - Assessed pt, administered medications per MAY. Administered PRN pain medication. Q2H turns and incontinence checks. Clustered care to promote rest. R - Patient is resting comfortably in bed. Will continue to assess and monitor patient. 01/07/2021 1:48 GILDA BINGHAM RN * Plan of Care - Chago Diamond RN - 01/06/2021 1834 EDT Problem: Daily Care Plan Goals Goal: Care Plan Documentation Outcome: Met This Shift Flowsheets (Taken 01/06/2021 0830) Area of Focus: Pain/ Comfort Goal This Shift: keep pain at a manageable level Data: Patient is POD #7 s/p right BKA. Pt complaining of left hip pain, right leg pain. Medication administered per MAY. A&O x 3 with intermittent forgetfulness. Able to make needs known to staff. Q2 turns, 12/12 left hip pain managed with pain medication per MAY. Case management (Mars Ledezma) and psych internal consultant notified of family wanting a proxy or POA. Action: Medication administered per MAY. Hourly rounding performed. Response: Medications and meals tolerated well. Call larson within reach. Needs met at this time. Will continue to monitor. * Plan of Care - Nena Allison - 01/06/2021 1636 EDT Clinician presented to pt's room for consult. Pt was soundly asleep and did not respond to verbal prompts. There will be an Adult Protective Services worker coming to assess pt tomorrow morning (around 10-11AM). Clinician had previously spoken to pt about filing a reporting which he was amenable to. However, pt is not yet aware that someone will be coming to speak to him. Clinician will re-attempt consult tomorrow morning prior to APS visit. Thank you for including us in this patient's care today. Please reach out if you have any questions. Nena Allison M.S. Renewals Manager Pager #: [phone] Cosigned by Augusta Hernandez, PhD at 01/06/2021 18:45 EDT * Plan of Care - Nena Allison - 01/06/2021 1045 EDT Clinician received phone call from Adult Protective Services worker. They will attempt to visit Jeff tomorrow in the morning (around 10-11) for assessment. Clinician will attempt consult today to inform Jeff. Thank you for including us in this patient's care today. Please reach out if you have any questions. Nena Allison M.S. Renewals Manager Pager #: [phone] Cosigned by Augusta Hernandez, PhD at 01/06/2021 13:04 EDT * Plan of Care - Jennifer Chen RN - 01/06/2021 0142 EDT Problem: Daily Care Plan Goals Goal: Care Plan Documentation Flowsheets (Taken 01/05/20212043) Area of Focus: Pain/ Comfort Goal This Shift: Control pain to promote rest Data: [id number]. Now POD #7 R BKA w/ course c/b severe L hip pain. Not on tele. AxO x2, forgetful of time d/t short term memory loss from prior brain tumor removal. VSS on RA. R BKA w/ CDI dressing. R single lumen PICC w/ positive blood return and patent. Complaints of persistent 9/10 pain in L hipthis shift. Q3 hour turns this shift per patient preference to align with pain medication schedule. Action: Medications provided as ordered. Scheduled Dilaudid for pain. Skin care and turns provided during night, coordinated Q3 turns rather then Q2 d/t medication dosing. FSBG's monitored per orders. I&O's monitored. Care clustered and environmental stimuli reduced to promote rest. Hourly rounds conducted for safety. Response: Safety maintained this shift. Bed locked and in lowest position. Call larson and personal items remain within reach. Resting between care and interventions. WCTM and intervene as needed. JENNIFER CHEN RN 01/06/2021 1:42 Patient cousin Romaine and pt discussed the need to update brother Terry with all updates pertaining to patient care. D/t pt short term memory, he is unable to retain information provided during rounds and visits from MD's during day making it hard for patient to know what his plans are moving forward. Possibly making Terry medical DPOA. Will pass on to day nurse for case management assistance. Problem: Cognitive: Goal: Mental status/cognition is maintained/returned to baseline Outcome: Ongoing Problem: SKIN INTEGRITY Goal: Skin integrity will improve or be maintained Outcome: Ongoing Problem: GLYCEMIA IMBALANCE Goal: Clinical Indication Of Glycemia Balance Is Achieved Outcome: Ongoing Goal: Patient's Continuum Of Care Needs Are Met Outcome: Ongoing Problem: PAIN Goal: Patient's pain/discomfort is manageable/tolerable Outcome: Not Met This Shift * Plan of Care - Chago Diamond RN - 01/05/2021 1841 EDT Problem: Daily Care Plan Goals Goal: Care Plan Documentation Outcome: Met This Shift Flowsheets (Taken 01/05/2021 0815) Area of Focus: Pain/ Comfort Goal This Shift: keep pain manageable Data: Patient is POD #6 s/p right BKA. Pt complaining of left hip pain, right leg pain. Medication administered per MAY. A&O x 3 with intermittent forgetfulness. Able to make needs known to staff. Q2 turns, 12/12 left hip pain managed with pain medication per MAY. Action: Medication administered per MAY. Hourly rounding performed. Response: Medications and meals tolerated well. Call larson within reach. Needs met at this time. Will continue to monitor * Plan of Care - Gilda Black MD - 01/05/2021 0923 EDT Problem: left hip pain Procedure: none S: chronic left hip pain. Known OA. Seen in total joints clinic on 07/06/[address] Jones. Discussed ELVIN cancelled due to Hgb A1c of 8.3. increased left hip pain after tripping and falling into the wall prior to this most recent hospitalization. O: LLE- no wounds, sensation grossly decreased from mid calf distally but no focal loss of sensation. 5/5 EHL/FHL/TA/GSC. 1/5 quad limited due to hip pain. Pain in hip with log roll. Palp pedal pulse. MRI with increased signal on T2 through the femoral neck into the intertrochanteric region. No acute fracture clearly evident. XR with joint space narrowing, osteophyte formation, subchondral sclerosis. A/P: Jeff Scott is a 60 y.o. 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 Arzate on 12/29 for diabetic foot wounds. In terms of his left hip pain, the MRI does notshow clear evidence of fracture as the increased signal may represent reactive changes from his OA o r in may represent a stress reaction/fracture. Given his extremely elevated Hgb A1c and his recent diabetic foot infection, his risk of an elective total hip likely outweighs the benefit. Patient canfollow with total joints clinic on an outpatient basis once his blood glucose is under better control and he has completed antibiotics and is clear of infection. Ortho joints service to sign off. I have placed an outpatient referral. GILDA BLACK MD 01/05/2021 9:[address] Burroughs and Dr. Adrian * Plan of Care - Lavonne Conway RN - 01/05/2021 0210 EDT Turn Every 2 Hours Note D - This is post-op day 5 for the patient. The patient is unable to perform position changes on hisown. A - Assisting with position changes off pressure points every two hours and prn. R - Skin integrity maintained. Will continue to assess skin integrity and turn the patient every two hours and prn. 01/05/2021 2:11 LAVONNE CONWAY RN * Plan of Care - Nena Allison - 01/04/2021 1148 EDT Clinician presented to pt's room for consult. Pt was soundly asleep and did not respond to verbal prompts. Clinician will re-attempt consult at a later time. Of note, pt was last seen by Med Psych on 12/28. Pt's cognitive impairment may impact his ability to recall that Med Psych is involved in his care. Clinician will continue to follow patient through out his admission. Recommendations to Healthcare Providers: Due to pt's waxing and waning cognitive functioning, pt may benefit from frequent reminders or having pertinent information written down for him. Thank you for including us in this patient's care today. Please reach out if you have any questions. Nena Allison M.S. Renewals Manager Pager #: [phone] Cosigned by Augusta Hernandez, PhD at 01/04/2021 17:51 EDT * Plan of Care - Lavonne Conway RN - 01/04/2021 0256 EDT Turn Every 2 Hours Note 5 D - This is post-op day for the patient. The patient is unable to perform position changes on his own. A - Assisting with position changes off pressure points every two hours and prn. R - Skin integrity maintained. Will continue to assess skin integrity and turn the patient every two hours and prn. 01/04/2021 2:56 LAVONNE CONWAY RN * Plan of Care - Nena Allison - 01/03/2021 1347 EDT Clinician presented to pt's room for consult. Pt was soundly asleep and did not respond to verbal prompts. Clinician will re-attempt consult at a later time. Thank you for including us in this patient's care today. Please reach out if you have any questions. Nena Allison M.S. Renewals Manager Pager #: [phone] Cosigned by Augusta Hernandez, PhD at 01/03/2021 16:38 EDT * Plan of Care - Frederic Serra RN - 01/03/2021 0337 EDT Problem: SKIN INTEGRITY Goal: Skin integrity will improve or be maintained Outcome: Ongoing Data: Patient pod 4 s/p right BKA. Has limited movement and severe pain in left hip area from an injury at home. Needs help with turn and repositioning. Buttocks had couple of small open areas that are blanching. Action: Turn and reposition every two hours. Assess skin at HS and provide back and pericare for soiled bed while using urinal. Barrier cream applied to buttock area. Response: Wound consult ordered. After turning on side patient will often get himself back to semi fowlers position FREDERIC SERRA RN 01/03/2021 3:37 * Plan of Care - Arianne Monge RN - 01/02/2021 0621 EDT Problem: Daily Care Plan Goals Goal: Care Plan Documentation Outcome: Ongoing D - POD#4 s/p R BKA. AAOX3 short term memory loss. No tele, RA. No post op BM, +flatus. Drsg to RLEc/d/I. SEBLE PICC in place c/d/I. RLE drsg c/d/I with boot in place. C/o 12/12 pain to L hip, relieved with PO dilaudid and tylenol. A - Vital signs taken. Meds given per MAY. Turned Q2H to maintain skin integrity. Call light withinreach, bed placed in low position and table at bedside. Room is free of clutter. R - Pt resting in bed. Continue to assess and monitor patient. 01/02/2021 6:21 ARIANNE MONGE RN * Plan of Care - Lory Cameron - 01/02/2021 0238 EDT Problem: Daily Care Plan Goals Goal: Care Plan Documentation Outcome: Ongoing Flowsheets (Taken 01/02/2021 0237) Area of Focus: Pain/ Comfort Goal This Shift: adequate pain control Data: Assumed care of pt at 1930. Pt is alert and orientedx3 with short term memory loss, able to make needs known. VSS. Pt is continent of bowel and bladder. Blood pressure (!) 143/74, pulse 98, temperature 36.6 ??C (97.9 ??F), temperature source Tympanic, resp. rate 18, height 185.4 cm (73), weight (!) 115.7 kg (255 lb 1.2 oz), SpO2 95 %. Action: Medicated per orders (see emar), hourly rounding, clustered care to promote rest, nutrition/hydration offered, q2 turns offered. Response: Pt able to sleep between nursing care, no acute changes noted over night, VS remained stable, and this nurse will continue to monitor. Pt able tpo sleep adequately, pain well controlled. LORY CAMERON RN 01/02/2021 2:38 * Plan of Care - Antonia Coon RN - 01/01/2021 1033 EDT Data: pt is POD 3 s/p BKA of RLE. Pt is endorsing moderate pain at surgical site however chief complaint is pain in his Left Hip. Pt has Hx of osteoarthritis and had a recent episode where he trippedgoing up stairs and twisted causing left hip pain to increase dramatically. Action: pt is non- weight bearing, turn and reposition Q2, scheduled tylenol and dilaudid for pain control. Awaiting Physical therapy to determine sub acute vs acute rehab plan. Response: pt endorses 10/10 pain in both L hip an RLE during repositioning, otherwise is able to rest comfortably in bed. Encourage deep breathing and distraction techniques during repositioning. ANTONIA COON RN 01/01/2021 10:33 * Plan of Care - Arianne Monge RN - 01/01/2021 0625 EDT Problem: Daily Care Plan Goals Goal: Care Plan Documentation Outcome: Ongoing D - POD#3 s/p R BKA. AAOX3 however some short term memory loss. No tele, RA. No post op BM, +flatus. SEBLE PICC in place c/d/I. RLE drsg c/d/I with boot in place. C/o 10/10 pain to L hip, some relief with PO dilaudid and tylenol, and ice pack. A - Vital signs taken. Meds given per MAY. Turned Q2H to maintain skin integrity. Call light withinreach, bed placed in low position and table at bedside. Room is free of clutter. R - Pt resting in bed. Continue to assess and monitor patient. 01/01/2021 6:25 ARIANNE MONGE RN * Plan of Care - Iza Huggins RN - 12/31/2020 2469 EDT Problem: Daily Care Plan Goals Goal: Care Plan Documentation Flowsheets (Taken 12/31/2020 0859) Area of Focus: Mobility Goal This Shift: Q2 turn & repo Data: This is a 60 year old male POD#2 s/p R BKA. Site is CDI. A&Ox3, does have a cognitive delay and takes a long time to process information as well as short-term memory loss as pt reports and needs frequent repetition/reminders. Pain in 7-12/12 pain throughout shift to R BKA site and L hip. Pain med regimen adjusted, see MAR. Non-tele. LSC, RA. Uses urinal at bedside. +flatus, no BM prior to procedure. PICC [facility] by [facility] in [facility]. Action: Medicated per MAY. Emotional support provided as pt becomes tearful & overwhelmed w/ Q2turn &repo. Q2 turn & repo as pt tolerated. Prophylactic mepilex on coccyx. Educated on phantom pain. Amp site on pillow- stub only. Response: VSS. Pt currently resting in bed, call larson within reach. No other needs/concerns at thistime. IZA HUGGINS RN 12/31/2020 14:09 * Plan of Care - Yisel Morocho RN - 12/31/2020 0018 EDT Problem: Cognitive: Goal: Mental status/cognition is maintained/returned to baseline Outcome: Ongoing Problem: High Fall Risk: Goal: Patient will Remain Free of Falls due to Dizziness/Vertigo Outcome: Ongoing Problem: High Fall Risk: Goal: Patient Will Remain Free from Fall-Related Injury Outcome: Ongoing Problem: High Fall Risk: Goal: Patient will Remain Free of Falls due to Altered Mobility Outcome: Ongoing Problem: High Fall Risk: Goal: Patient will Remain Free of Falls due to Med. Side Effects Outcome: Ongoing Problem: High Fall Risk: Goal: Patient will Remain Free of Falls due to Altered Elimination Outcome: Ongoing Problem: Sensory: Goal: Ability to compensate for vision loss will be supported Outcome: Ongoing Problem: SKIN INTEGRITY Goal: Skin integrity will improve or be maintained Outcome: Ongoing Problem: Pressure Ulcer Prevention Goal: Absence Of Pressure Ulcer Outcome: Ongoing Problem: Daily Care Plan Goals Goal: Care Plan Documentation Outcome: Ongoing Problem: RISK FOR INFECTION Goal: Signs & Symptoms Of Infections Are Decreased Or Avoided Outcome: Ongoing Problem: GLYCEMIA IMBALANCE Goal: Clinical Indication Of Glycemia Balance Is Achieved Outcome: Ongoing Goal: Patient's Continuum Of Care Needs Are Met Outcome: Ongoing Problem: PAIN Goal: Patient's pain/discomfort is manageable/tolerable Outcome: Ongoing Data: Pt has been comfortable in bed, occasional complaint of hip and leg pain. Refuses to turn andreposition often, educated about skin breakdown and how to prevent it. Pt eating and drinking well with no n/v. Dressing remains c/d/I. Pt RA throughout shift. Action: RN and staff continue to educate and attempt to turn and reposition pt. Pain medicine givenas scheduled. Pillow placed and remains under distal portion of R leg. Medicated cream applied to left hip. Response: Pt refuses t/rp often. Pt likes the cream on left hip. Pain remains under controlled. Will continue to monitor YISEL MOROCHO RN 12/31/2020 0:18 * Plan of Care - Arely Qureshi RN - 12/30/2020 1710 EDT Problem: Daily Care Plan Goals Goal: Care Plan Documentation Outcome: Ongoing Flowsheets (Taken 12/30/2020 5722) Area of Focus: Pain/ Comfort Goal This Shift: Pain will be adequately managed Data: 60 y/o M POD #1 s/p R BKA. A&O x4 with some hesitation and forgetfulness. Room air. VSS. R leg propped on pillow to stay straight per MD orders. L hip pain that is equal or worse pain to R side. Action: Hourly checks completed and medications administered per MAR, including Cefazolin abx Q8. Tylenol, Robaxin and Dilaudid for pain management. Q2 turns to promote skin integrity. Patient educated on importance of turns but frequently refused d/t intense pain, only allowing nursing staff to turn slightly. Response: Patient slept on/ off throughout the day. Requires encouragement to turn regularly d/t patient's fear of pain associated with movement. Emotional support provided. Will continue to monitor and assess for changes in patient condition. ARELY QURESHI RN 12/30/2020 17:10 * Plan of Care - Yisel Morocho RN - 12/30/2020 0405 EDT Problem: Cognitive: Goal: Mental status/cognition is maintained/returned to baseline Outcome: Ongoing Problem: High Fall Risk: Goal: Patient will Remain Free of Falls due to Dizziness/Vertigo Outcome: Ongoing Problem: High Fall Risk: Goal: Patient Will Remain Free from Fall-Related Injury Outcome: Ongoing Problem: High Fall Risk: Goal: Patient will Remain Free of Falls due to Altered Mobility Outcome: Ongoing Problem: High Fall Risk: Goal: Patient will Remain Free of Falls due to Med. Side Effects Outcome: Ongoing Problem: High Fall Risk: Goal: Patient will Remain Free of Falls due to Altered Elimination Outcome: Ongoing Problem: Sensory: Goal: Ability to compensate for vision loss will be supported Outcome: Ongoing Problem: SKIN INTEGRITY Goal: Skin integrity will improve or be maintained Outcome: Ongoing Problem: Pressure Ulcer Prevention Goal: Absence Of Pressure Ulcer Outcome: Ongoing Problem: Daily Care Plan Goals Goal: Care Plan Documentation Outcome: Ongoing Problem: RISK FOR INFECTION Goal: Signs & Symptoms Of Infections Are Decreased Or Avoided Outcome: Ongoing Problem: GLYCEMIA IMBALANCE Goal: Clinical Indication Of Glycemia Balance Is Achieved Outcome: Ongoing Goal: Patient's Continuum Of Care Needs Are Met Outcome: Ongoing Problem: PAIN Goal: Patient's pain/discomfort is manageable/tolerable Outcome: Ongoing Data: patient arrived to floor after Right BKA. A&Ox3. Pain /10 in LT hip and RT leg. 2L NC onfor comfort. Action: Pain medicine and antx given. Pt ate wrap and yogurt. tolerating PO w/o n/v. Response: No n/v from eating or drinking. Pain being monitored and controlled with medications. PT eval ordered for morning YISEL MOROCHO RN 12/30/2020 4:05 * Brief Op Note - Gilda Black MD - 12/29/20202049 EDT Department of Orthopaedics Brief Op Note Date of Surgery: 12/29/2020 Surgeons: * Edson Arzate MD - Primary * Gilda Black MD - Resident - Assisting * Js Meza MD - Resident - Assisting Pre-Op Diagnosis: right diabetic foot infection Post-Op Diagnosis: same Procedure(s): right below knee amputation Findings: Excellent closure, no purulence within the leg Anesthesia Type: General Tourniquet Time: NA Estimated Blood Loss: 20cc Fluids: 100 mL crystalloid Urine Output: none ml X-rays reviewed: NA Implants: none Specimens: 1 right leg Closure: prolene Staff: Anvil Worker: Jyotsna Lyons RN Relief Scrub: Alberta Moore RN Scrub Person: Glenys Wilson RN Patient Hot Stick Worker: Aurora Ramirez MA Disposition and Condition: PACU in Good condition per anesthesia. Plan: Please place pillow under the distal end of the stump, NOT under the knee. The goal is to keep the knee completely straight. NWB RLE 2g cefazolin q8hr. Duration per ID (2 weeks from amputation, ending 01/12) DVT ppx: therapeutic enox, ambulate, SCDs to LLE PT eval No further surgical interventions needed GILDA BLACK MD 12/29/2020 20:50 * Plan of Care - Glo Serra RN - 12/29/2020 1222 EDT Problem: SKIN INTEGRITY Goal: Skin integrity will improve or be maintained Outcome: Ongoing Problem: PAIN Goal: Patient's pain/discomfort is manageable/tolerable Outcome: Ongoing Data: R foot diabetic ulcer scheduled for amputation today at 1530. Patient at MRI at this time. Patient refusing to be repositioned d/t pain in hip. R foot covered with dry kerlix dressing. Action: pain meds (tylenol and 2 mg dilaudid) for pain. Received IV dilaudid prior to MRI imaging today. NPO since 0005 on 12/29. Getting sips of water with PO medication. Verbal directions given to have patient reposition self in bed if refusing having staff help him. Response: vital signs stable, pt pain more controlled, using urinal. GLO SERRA RN 12/29/2020 12:22 * Plan of Care - Delvis Khan RN - 12/29/2020 0115 EDT Problem: Daily Care Plan Goals Goal: Care Plan Documentation Outcome: Ongoing Flowsheets (Taken 12/28/20202121) Area of Focus: Pain/ Comfort Goal This Shift: Pain will be managed overnight D: Assumed care of pt @ 1900. Pt is A&Ox3 but can be forgetful. C/o pain 8/10 in L hip. 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 A: Hourly rounding for pt safety. Medications administered per MAR, PRN dilaudid for pain. Clustered care to promote rest. Education provided to pt regarding diet order. R: Pt able to get adequate rest overnight, however pain does not appear to be controlled on currentregimine. No distress noted, call larson within reach. DELVIS KHAN RN 12/29/2020 1:15 * Plan of Care - King Bui RN - 12/28/2020 1711 EDT Data: R foot diabetic ulcer scheduled for amputation on 12/29. R hip pain is severe from fall but xray shows no frx. Action: pain meds (tylenol and 2 mg dilaudid) for pain. NPO at 0000 for procedure tomorrow. Response: vital signs stable, pt pain more controlled, using urinal, KING BUI RN 12/28/2020 17:11 * Plan of Care - Nena Allison - 12/28/2020 1050 EDT Psychotherapy Plan of Care Note Name: Jeff Scott : 1960 Date of Service: 12/28/2020 Time of Service: 11:55 - 10:10 Length of Service: 15 minutes Problem: Jeff Scott is a 60 y.o., White, male referred for medical psychology services to address coping with psychosocial stressors and pending amputation of foot. 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 Intervention and Response: Clinician presented to pt's room to inform him that an Adult Protective Services report was filed on his behalf. Clinician provided psychoeducation regarding potential nextsteps should pt be contacted. Pt expressed concern that the report may cause further relational challenges. Clinician validated pt's concerns and engaged pt in a discussion of communication strategies to utilize when having challenging conversations. Pt was receptive to clinician's suggestions and was appreciative of clinician's visit. Med Psych will continue to follow pt through out admission. Thank you for including us in this patient's care today. Please reach out if you have any questions. Nena Allison M.S. Renewals Manager Pager #: [phone] Cosigned by Patrica Lui, PhD at 12/28/2020 11:54 EDT * Plan of Care - Charli Cody RN - 12/28/2020 0437 EDT Problem: Cognitive: Goal: Mental status/cognition is maintained/returned to baseline Outcome: Ongoing Problem: High Fall Risk: Goal: Patient will Remain Free of Falls due to Dizziness/Vertigo Outcome: Ongoing Problem: SKIN INTEGRITY Goal: Skin integrity will improve or be maintained Outcome: Ongoing Data: pt resting in bed with excruciating pain to left hip. Respirations are even and unlabored. Pto2 sat is above 92%. Helped pt to the [facility] to have a bm. Skin integrity is intact. Aaox3. Action: explained to pt about plan of care and pain medication regimen. Also explained to patient on how to use call light when in need Response: pt verbalized understanding. Will continue to monitor CHARLI CODY RN 12/28/2020 4:37 * Plan of Care - Annette Estrada RN - 12/27/20207 EDT Data: VSS on RA. AOX3, anxious at times, short term memory. Pain in L hip, minimal pain in R foot. Remains in bed, Q2T, OOB to commode/chair with sit to stand (does not tolerate well with L hip pain). Tolerating diet, no nausea. Action: Meds given per MAY. PRN PO dilaudid given for 8/10 L hip pain. New IV placed in L FA (previous IV fell out). Ortho performed dressing change on R foot this AM. Response: Resting in bed at this time. Plan for BKA this week (nothing scheduled at this time). Will Continue to monitor.. ANNETTE ESTRADA RN 12/27/2020 18:17 Problem: Cognitive: Goal: Mental status/cognition is maintained/returned to baseline 12/27/2020 181 by Annette Estrada RN Outcome: Ongoing 12/27/2020 1816 by Annette Estrada RN Outcome: Ongoing 12/27/2020 1502 by Annette Estrada RN Outcome: Ongoing Problem: PAIN Goal: Patient's pain/discomfort is manageable/tolerable Outcome: Ongoing Problem: Pressure Ulcer Prevention Goal: Absence Of Pressure Ulcer 12/27/2020 1816 by Annette Estrada RN Outcome: Ongoing 12/27/2020 1816 by Annette Estrada RN Outcome: Ongoing 12/27/2020 1502 by Annette Estrada RN Outcome: Ongoing * Diabetes Education - Nikia Root RN - 12/27/2020 1138 EDT Diabetes Nurse Clinician Education Note: Attempted to see patient but he was busy with another clinician. Will attempt to visit at another time. Delores Root RN Diabetes Nurse Clinician #[id number] * Plan of Care - Larissa Benites RN - 12/27/2020 0531 EDT Problem: Daily Care Plan Goals Goal: Care Plan Documentation Outcome: Ongoing Flowsheets (Taken 12/26/2020 2357) Area of Focus: Pain/ Comfort Goal This Shift: Pain will be adequately managed Data: Aox3 with short term memory loss. Inappropriate at times, placing his hand on director underwriter sales's waist.Afebrile. Complains of 7-8/10 pain in L hip, worse with movement, denies pain in R foot. Bedtime fingerstick blood glucose 186. Action: Limits strongly reinforced with patient. PRN pain meds, Lantus 45 units and IV antibiotics administered per eMAR. Q2H turns, refuses at times. Hourly safety checks. Response: Continues to endorse L hip pain with movement. LARISSA BENITES RN 12/27/2020 5:31 * Plan of Care - Annette Estrada RN - 12/26/2020 0928 EDT Data: VSS on RA. AOX3, anxious at times, short term memory. Pain in L hip, minimal pain in R foot. Remains in bed, Q2T, will attempt pivot to chair this shift. Tolerating diet, no nausea. Action: Meds given per MAR. PRN PO dilaudid given for 8/10 L hip pain. New IV placed in L FA (previous IV fell out). Ortho performed dressing change on R foot this AM. Response: Resting in bed at this time. Cousin at bedside. Plan for BKA this week (nothing scheduledat this time). Will Continue to monitor.. ANNETTE ESTRADA RN 12/26/2020 9:28 Problem: Cognitive: Goal: Mental status/cognition is maintained/returned to baseline Outcome: Ongoing Problem: High Fall Risk: Goal: Patient will Remain Free of Falls due to Altered Mobility Outcome: Ongoing Problem: SKIN INTEGRITY Goal: Skin integrity will improve or be maintained Outcome: Ongoing * Plan of Care - Larissa Benites RN - 12/26/2020 0617 EDT Problem: Daily Care Plan Goals Goal: Care Plan Documentation Outcome: Ongoing Flowsheets (Taken 12/25/2020 2305) Area of Focus: Pain/ Comfort Goal This Shift: Pain will be adequately managed Data: Aox2-3 with periods of confusion. Can be inappropriate at times, placing his head on female staff's upperarm. Complaining of L hip pain 8-10/10 which he does not complain about when distracted.R foot dressing clean, dry and intact. Action: Limits set with patient. PRN pain meds administered. Lidocaine patch given early, MD approved. Assisted to sit on side of the bed. Q2h turns, mostly refused this shift. Explained importance of turning schedule. Hourly safety checks. Response: Continues to endorse severe pain. LARISSA BENITES RN 12/26/2020 6:17 * Plan of Care - Hilton Murillo RN - 12/25/2020 0336 EDT Problem: Cognitive: Goal: Mental status/cognition is maintained/returned to baseline Outcome: Ongoing Problem: SKIN INTEGRITY Goal: Skin integrity will improve or be maintained Outcome: Ongoing Problem: Daily Care Plan Goals Goal: Care Plan Documentation Outcome: Ongoing Flowsheets (Taken 12/25/2020 0031) Area of Focus: Psychosocial Goal This Shift: Pt anxiety will be managed, allow pt time to express needes Note: Data: Pt has been anxious and tearful during admission, Pt drowsy with some acute confusion, Pt haslimited movement related to pain and R foot ulcer Action: Performed rounding, [id number], administer medication per order and pt need, reorient as needed, Allowed pt to express self Response: Pt skin integrity maintained. Pt reoriented, but was drowsy/forgetful/confused. 2 occurences of incontinence overnight. During bed change pt pain was very severe 12/12. PO morphine given with no relief. Provider notified. Administered tylenol and tramadol. New order for diclofnac gel for L hip pain q4time/day. HILTON MURILLO RN 12/25/2020 3:31 * Diabetes Education - Nikia Root RN - 12/24/2020 1258 EDT Diabetes Nurse Clinician Education Note: attempted to visit with patient today. Group Leader in the room completing foot assessment and dressing. RN reports some confusion and patient is currently A&Ox2 (oriented to person and place and not to time). Patient's mental status is noted to be different from his baseline. Unable to see patient at this time due to other care needs. Will attempt at another time. Delores Root RN Diabetes Nurse Clinician #[id number] * Plan of Care - Marcela Mary RN - 12/24/2020 1045 EDT Problem: High Fall Risk: Goal: Patient will Remain Free of Falls due to Dizziness/Vertigo Outcome: Met This Shift Problem: Pressure Ulcer Prevention Goal: Absence Of Pressure Ulcer Outcome: Met This Shift Problem: Sensory: Goal: Ability to compensate for vision loss will be supported Outcome: Ongoing Problem: Cognitive: Goal: Mental status/cognition is maintained/returned to baseline Outcome: Not Met This Shift Data: assumed care at 0700. Pt drowsy this shift, often falling asleep during conversation. Requires good setup dt poor vision. Reports being very near sided although refusing to wear eyeglasses. Reports 8/10 pain in back, grimacing with slight reposition. Bandage to r foot clean/dry/intact. Action: admin pain meds per mar. Woundcare & dressing cx provided by podiatry at 1400. Discussed plan of care with team. Response: pt continues to express emotional needs. His mentation not at baseline, drowsy, short term memory impaired. MARCELA MARY RN 12/24/2020 10:45 * Plan of Care - Hilton Murillo RN - 12/24/2020 0352 EDT Problem: Cognitive: Goal: Mental status/cognition is maintained/returned to baseline 12/24/2020 0346 by Hilton Murillo RN Outcome: Ongoing 12/24/2020 0346 by Hilton Murillo RN Outcome: Ongoing Problem: SKIN INTEGRITY Goal: Skin integrity will improve or be maintained Outcome: Ongoing Problem: Daily Care Plan Goals Goal: Care Plan Documentation Outcome: Ongoing Flowsheets (Taken 12/24/2020218) Area of Focus: Sleep Goal This Shift: Pt will get sleep during night Note: Data: Pt arrived on unit around midnight, Pt has some confusion related to infection. 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 Pt tearful and anxious on an off throughnight Action: Perform rounding, q2 turns, communicated with provider need for medication to reduce anxiety, reoriented pt as needed Response: Pt slept on and off during night, Pt did not tolerate turns well due to pain, pt had a fever of 101.3 on arrival administered tylenol and applied ice packs. Pt temperature reduced to 98.9. Pt O2 in low 90s in morning, applied 2L NC. Provider aware HILTON MURILLO RN 12/24/2020 3:47 documented in this encounter Plan of Treatment Not on file documented as of this encounter Procedures Procedure Name Priority Date/Time Associated Diagnosis Comments ORDERS - SCANNED 01/26/2021 10:4 7 EST POCT GLUCOSE, INTERFACED Routine 01/21/2021 9:07 EST POCT GLUCOSE, INTERFACED Routine 01/20/2021 21:27 EST POCT GLUCOSE, INTERFACED Routine 01/20/2021 17:[address] UROGRAM Routine 01/20/2021 15:47 EST ZZCOVID-19 TEST [facility] PCR Today 01/20/2021 13:49 EST COVID-19 TESTING Routine 01/20/2021 13:4 9 EST NON PROJECT MANAGEMENT PROFESSOR/FNA CYTOLOGY Routine 01/20/2021 13:16 EST POCT GLUCOSE, INTERFACED Routine 01/20/2021 11:25 EST POCT GLUCOSE, INTERFACED Routine 01/20/2021 8:13 EST COMPLETE BLOOD COUNT Routine 01/20/2021 5:22 EST BASIC METABOLIC PANEL (BMP) Routine 01/20/2021 5:22 EST POCT GLUCOSE, INTERFACED Routine 01/19/2021 20:42 EST POCT GLUCOSE, INTERFACED Routine 01/19/2021 16:43 EST POCT GLUCOSE, INTERFACED Routine 01/19/2021 11:27 EST POCT GLUCOSE, INTERFACED Routine 01/19/2021 7:44 EST POCT GLUCOSE, INTERFACED Routine 01/18/2021 20:04 EST POCT GLUCOSE, INTERFACED Routine 01/18/2021 17:27 EST POCT GLUCOSE, INTERFACED Routine 01/18/2021 11:38 EST POCT GLUCOSE, INTERFACED Routine 01/18/2021 7:01 EST POCT GLUCOSE, INTERFACED Routine 01/18/2021 6:47 EST POCT GLUCOSE, INTERFACED Routine 01/17/2021 20:41 EST POCT GLUCOSE, INTERFACED Routine 01/17/2021 17:21 EST POCT GLUCOSE, INTERFACED Routine 01/17/2021 11:18 EST POCT GLUCOSE, INTERFACED Routine 01/17/2021 7:09 EST POCT GLUCOSE, INTERFACED Routine 01/17/2021 6:13 EST COMPLETE BLOOD COUNT STAT 01/17/2021 4:00 EST BASIC METABOLIC PANEL (BMP) Routine 01/17/2021 4:00 EST POCT GLUCOSE, INTERFACED Routine 01/16/2021 21:01 EST POCT GLUCOSE, INTERFACED Routine 01/16/2021 17:05 EST POCT GLUCOSE, INTERFACED Routine 01/16/2021 11:04 EST POCT GLUCOSE, INTERFACED Routine 01/16/2021 7:05 EST POCT GLUCOSE, INTERFACED Routine 01/15/2021 20:18 EST POCT GLUCOSE, INTERFACED Routine 01/15/2021 16:45 EST POCT GLUCOSE, INTERFACED Routine 01/15/2021 12:32 EST POCT GLUCOSE, INTERFACED Routine 01/15/2021 7:18 EST POCT GLUCOSE, INTERFACED Routine 01/15/2021 0:03 EST POCT GLUCOSE, INTERFACED Routine 01/14/2021 21:34 EST POCT GLUCOSE, INTERFACED Routine 01/14/2021 20:42 EST POCT GLUCOSE, INTERFACED Routine 01/14/2021 16:43 EST POCT GLUCOSE, INTERFACED Routine 01/14/2021 11:49 EST ORDERS - SCANNED 01/14/2021 11:1 1 EST POCT GLUCOSE, INTERFACED Routine 01/14/2021 9:07 EST COMPLETE BLOOD COUNT Routine 01/14/2021 5:36 EST BASIC METABOLIC PANEL (BMP) Routine 01/14/2021 5:36 EST POCT GLUCOSE, INTERFACED Routine 01/13/2021 22:58 EST POCT GLUCOSE, INTERFACED Routine 01/13/2021 21:27 EST POCT GLUCOSE, INTERFACED Routine 01/13/2021 16:45 EST POCT GLUCOSE, INTERFACED Routine 01/13/2021 11:34 EST COMPLETE BLOOD COUNT Routine 01/13/2021 7:45 EST BASIC METABOLIC PANEL (BMP) Routine 01/13/2021 7:45 EST POCT GLUCOSE, INTERFACED Routine 01/13/2021 7:07 EST POCT GLUCOSE, INTERFACED Routine 01/13/2021 6:48 EST POCT GLUCOSE, INTERFACED Routine 01/13/2021 6:26 EST POCT GLUCOSE, INTERFACED Routine 01/13/2021 6:07 EST POCT GLUCOSE, INTERFACED Routine 01/13/2021 1:13 EST POCT GLUCOSE, INTERFACED Routine 01/13/2021 0:18 EST POCT GLUCOSE, INTERFACED Routine 01/13/2021 0:01 EST POCT GLUCOSE, INTERFACED Routine 01/12/2021 21:07 EST POCT GLUCOSE, INTERFACED Routine 01/12/2021 20:07 EST POCT GLUCOSE, INTERFACED Routine 01/12/2021 16:46 EST POCT GLUCOSE, INTERFACED Routine 01/12/2021 13:25 EST POCT GLUCOSE, INTERFACED Routine 01/12/2021 12:46 EST POCT GLUCOSE, INTERFACED Routine 01/12/2021 12:33 EST POCT GLUCOSE, INTERFACED Routine 01/12/2021 12:00 EST POCT GLUCOSE, INTERFACED Routine 01/12/2021 11:36 EST POCT GLUCOSE, INTERFACED Routine 01/12/2021 7:24 EST POCT GLUCOSE, INTERFACED Routine 01/11/2021 22:31 EST POCT GLUCOSE, INTERFACED Routine 01/11/2021 19:06 EST POCT GLUCOSE, INTERFACED Routine 01/11/2021 13:08 EST POCT GLUCOSE, INTERFACED Routine 01/11/2021 8:12 EST COMPLETE BLOOD COUNT Routine 01/11/2021 8:03 EST BASIC METABOLIC PANEL (BMP) Routine 01/11/2021 8:03 EST POCT GLUCOSE, INTERFACED Routine 01/10/2021 20:47 EST POCT GLUCOSE, INTERFACED Routine 01/10/2021 18:11 EST POCT GLUCOSE, INTERFACED Routine 01/10/2021 12:33 EST POCT GLUCOSE, INTERFACED Routine 01/10/2021 8:00 EST POCT GLUCOSE, INTERFACED Routine 01/09/2021 20:21 EST POCT GLUCOSE, INTERFACED Routine 01/09/2021 17:09 EST POCT GLUCOSE, INTERFACED Routine 01/09/2021 11:48 EST POCT GLUCOSE, INTERFACED Routine 01/09/2021 8:19 EST COMPLETE BLOOD COUNT Routine 01/09/2021 5:47 EST BASIC METABOLIC PANEL (BMP) Routine 01/09/2021 5:47 EST POCT GLUCOSE, INTERFACED Routine 01/08/2021 21:02 EDT POCT GLUCOSE, INTERFACED Routine 01/08/2021 17:36 EDT POCT GLUCOSE, INTERFACED Routine 01/08/2021 12:27 EDT POCT GLUCOSE, INTERFACED Routine 01/08/2021 7:59 EDT POCT GLUCOSE, INTERFACED Routine 01/07/2021 21:30 EDT POCT GLUCOSE, INTERFACED Routine 01/07/2021 18:38 EDT POCT GLUCOSE, INTERFACED Routine 01/07/2021 12:32 EDT POCT GLUCOSE, INTERFACED Routine 01/07/2021 8:06 EDT POCT GLUCOSE, INTERFACED Routine 01/07/2021 7:28 EDT COMPLETE BLOOD COUNT Routine 01/07/2021 5:56 EDT BASIC METABOLIC PANEL (BMP) Routine 01/07/2021 5:56 EDT POCT GLUCOSE, INTERFACED Routine 01/06/2021 21:13 EDT POCT GLUCOSE, INTERFACED Routine 01/06/2021 17:27 EDT POCT GLUCOSE, INTERFACED Routine 01/06/2021 12:30 EDT POCT GLUCOSE, INTERFACED Routine 01/06/2021 8:27 EDT COMPLETE BLOOD COUNT Routine 01/06/2021 6:29 EDT BASIC METABOLIC PANEL (BMP) Routine 01/06/2021 6:29 EDT POCT GLUCOSE, INTERFACED Routine 01/05/2021 20:25 EDT POCT GLUCOSE, INTERFACED Routine 01/05/2021 18:00 EDT POCT GLUCOSE, INTERFACED Routine 01/05/2021 12:35 EDT ECG REPORT - SCANNED 01/05/2021 11:16 EDT POCT GLUCOSE, INTERFACED Routine 01/05/2021 7:55 EDT COMPLETE BLOOD COUNT Routine 01/05/2021 5:45 EDT BASIC METABOLIC PANEL (BMP) Routine 01/05/2021 5:45 EDT POCT GLUCOSE, INTERFACED Routine 01/04/2021 21:11 EDT POCT GLUCOSE, INTERFACED Routine 01/04/2021 18:25 EDT POCT GLUCOSE, INTERFACED Routine 01/04/2021 11:05 EDT POCT GLUCOSE, INTERFACED Routine 01/04/2021 7:59 EDT COMPLETE BLOOD COUNT Routine 01/04/2021 6:35 EDT BASIC METABOLIC PANEL (BMP) Routine 01/04/2021 6:35 EDT POCT GLUCOSE, INTERFACED Routine 01/03/2021 20:33 EDT POCT GLUCOSE, INTERFACED Routine 01/03/2021 18:05 EDT POCT GLUCOSE, INTERFACED Routine 01/03/2021 17:18 EDT POCT GLUCOSE, INTERFACED Routine 01/03/2021 16:04 EDT POCT GLUCOSE, INTERFACED Routine 01/03/2021 12:03 EDT POCT GLUCOSE, INTERFACED Routine 01/03/2021 9:03 EDT COMPLETE BLOOD COUNT Routine 01/03/2021 5:09 EDT BASIC METABOLIC PANEL (BMP) Routine 01/03/2021 5:09 EDT WOUND EVALUATION AND TREAT Routine 01/03/2021 3:36 EDT POCT GLUCOSE, INTERFACED Routine 01/02/2021 21:03 EDT POCT GLUCOSE, INTERFACED Routine 01/02/2021 18:28 EDT POCT GLUCOSE, INTERFACED Routine 01/02/2021 12:41 EDT POCT GLUCOSE, INTERFACED Routine 01/02/2021 8:13 EDT COMPLETE BLOOD COUNT Routine 01/02/2021 5:29 EDT BASIC METABOLIC PANEL (BMP) Routine 01/02/2021 5:29 EDT POCT GLUCOSE, INTERFACED Routine 01/01/2021 21:57 EDT POCT GLUCOSE, INTERFACED Routine 01/01/2021 17:41 EDT POCT GLUCOSE, INTERFACED Routine 01/01/2021 12:28 EDT POCT GLUCOSE, INTERFACED Routine 01/01/2021 7:50 EDT COMPLETE BLOOD COUNT Routine 01/01/2021 6:12 EDT BASIC METABOLIC PANEL (BMP) Routine 01/01/2021 6:12 EDT POCT GLUCOSE, INTERFACED Routine 12/31/2020 21:26 EDT POCT GLUCOSE, INTERFACED Routine 12/31/2020 18:22 EDT INSERT PICC LINE Routine 12/31/2020 14:4 1 EDT POCT GLUCOSE, INTERFACED Routine 12/31/2020 12:30 EDT POCT GLUCOSE, INTERFACED Routine 12/31/2020 8:56 EDT COMPLETE BLOOD COUNT Routine 12/31/2020 6:46 EDT BASIC METABOLIC PANEL (BMP) Routine 12/31/2020 6:46 EDT POCT GLUCOSE, INTERFACED Routine 12/31/2020 0:11 EDT POCT GLUCOSE, INTERFACED Routine 12/30/2020 20:51 EDT POCT GLUCOSE, INTERFACED Routine 12/30/2020 18:24 EDT POCT GLUCOSE, INTERFACED Routine 12/30/2020 12:28 EDT POCT GLUCOSE, INTERFACED Routine 12/30/2020 8:05 EDT COMPLETE BLOOD COUNT Routine 12/30/2020 6:19 EDT BASIC METABOLIC PANEL (BMP) Routine 12/30/2020 6:19 EDT POCT GLUCOSE, INTERFACED Routine 12/29/2020 21:01 EDT SURGICAL PATHOLOGY Routine 12/29/2020 19 :29 EDT POCT GLUCOSE, INTERFACED Routine 12/29/2020 18:28 EDT AMPUTATION, LOWER EXTREMITY, THROUGH DISTAL TIBIA AND FIBULA 12/29/2020 18:06 EDT 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 ([facility]) ([facility]) POCT GLUCOSE, INTERFACED Routine 12/29/2020 17:02 EDT POCT GLUCOSE, INTERFACED Routine 12/29/2020 14:38 EDT MR HIP W WO CONTRAST LEFT Routine 12/29/2020 12:16 EDT POCT GLUCOSE, INTERFACED Routine 12/29/2020 9:15 EDT POC US ANESTHESIA NERVE BLOCK POPLITEAL FOSSA Routine 12/29/2020 8:04 EDT POC US ANESTHESIA NERVE BLOCK OTHER Routine 12/29/2020 8:03 EDT COMPLETE BLOOD COUNT Routine 12/29/2020 7:28 EDT BASIC METABOLIC PANEL (BMP) Routine 12/29/2020 7:28 EDT POCT GLUCOSE, INTERFACED Routine 12/29/2020 6:03 EDT POCT GLUCOSE, INTERFACED Routine 12/29/2020 0:01 EDT POCT GLUCOSE, INTERFACED Routine 12/28/2020 21:21 EDT POCT GLUCOSE, INTERFACED Routine 12/28/2020 18:11 EDT ZZCOVID-19 TEST UVC LAB PCR Today 12/28/2020 14:50 EDT COVID-19 TESTING Routine 12/28/2020 14:5 0 EDT PTT Routine 12/28/2020 14:02 EDT PROTIME Routine 12/28/2020 14:02 EDT TYPE AND SCREEN Routine 12/28/2020 14:02 EDT POCT GLUCOSE, INTERFACED Routine 12/28/2020 11:33 EDT POCT GLUCOSE, INTERFACED Routine 12/28/2020 7:55 EDT COMPLETE BLOOD COUNT Routine 12/28/2020 7:29 EDT BASIC METABOLIC PANEL (BMP) Routine 12/28/2020 7:29 EDT POCT GLUCOSE, INTERFACED Routine 12/27/2020 20:48 EDT POCT GLUCOSE, INTERFACED Routine 12/27/2020 17:26 EDT POCT GLUCOSE, INTERFACED Routine 12/27/2020 12:10 EDT SED RATE Add-On 12/27/2020 9:40 EDT COMPLETE BLOOD COUNT Routine 12/27/2020 9:40 EDT C REACTIVE PROTEIN Add-On 12/27/2020 9: 40 EDT BASIC METABOLIC PANEL (BMP) Routine 12/27/2020 9:40 EDT POCT GLUCOSE, INTERFACED Routine 12/27/2020 7:49 EDT POCT GLUCOSE, INTERFACED Routine 12/26/2020 22:04 EDT POCT GLUCOSE, INTERFACED Routine 12/26/2020 18:02 EDT POCT GLUCOSE, INTERFACED Routine 12/26/2020 12:10 EDT POCT GLUCOSE, INTERFACED Routine 12/26/2020 8:46 EDT COMPLETE BLOOD COUNT Routine 12/26/2020 8:09 EDT BASIC METABOLIC PANEL (BMP) Routine 12/26/2020 8:09 EDT POCT GLUCOSE, INTERFACED Routine 12/25/2020 20:28 EDT POCT GLUCOSE, INTERFACED Routine 12/25/2020 17:06 EDT POCT GLUCOSE, INTERFACED Routine 12/25/2020 11:52 EDT COMPLETE BLOOD COUNT Routine 12/25/2020 8:03 EDT BASIC METABOLIC PANEL (BMP) Routine 12/25/2020 8:03 EDT POCT GLUCOSE, INTERFACED Routine 12/25/2020 7:56 EDT POCT GLUCOSE, INTERFACED Routine 12/24/2020 20:53 EDT POCT GLUCOSE, INTERFACED Routine 12/24/2020 17:09 EDT TRANSTHORACIC ECHO (TTE) COMPLETE Routine 12/24/2020 14:15 EDT BACTERIAL CULTURE, BLOOD Routine 12/24/2020 12:09 EDT BACTERIAL CULTURE, BLOOD Routine 12/24/2020 12:01 EDT POCT GLUCOSE, INTERFACED Routine 12/24/2020 11:57 EDT COMPLETE BLOOD COUNT Routine 12/24/2020 9:44 EDT BASIC METABOLIC PANEL (BMP) Routine 12/24/2020 9:44 EDT POCT GLUCOSE, INTERFACED Routine 12/24/2020 9:35 EDT POCT GLUCOSE, INTERFACED Routine 12/23/2020 22:15 EDT POCT GLUCOSE, INTERFACED Routine 12/23/2020 19:34 EDT POCT GLUCOSE, INTERFACED Routine 12/23/2020 13:[address] HIP LEFT WO CONTRAST STAT 12/23/2020 8:42 EDT BASIC METABOLIC PANEL (BMP) STAT 12/23/2020 8:04 EDT BACTERIAL CULTURE, BLOOD STAT 12/23/2020 8:01 EDT BACTERIAL CULTURE, BLOOD STAT 12/23/2020 7:02 EDT COMPLETE BLOOD COUNT AND DIFFERENTIAL STAT 12/23/2020 7:02 EDT HEMOGLOBIN A1C Add-On 12/23/2020 7:02 EDT BASIC METABOLIC PANEL (BMP) STAT 12/23/2020 3:14 EDT ANAEROBE CULTURE/SMEAR(INC. AEROBES), OTHER Routine 12/23/2020 2:12 EDT FL GUIDED LOCALIZATION, ASPIRATION, INJECTION, BIOPSY STAT 12/23/2020 0:52 EDT POCT GLUCOSE, INTERFACED Routine 12/23/2020 0:30 EDT LACTIC ACID STAT 12/22/2020 23:44 EDT HOLD GREEN TOP Routine 12/22/2020 20:37 EDT ZZCOVID-19 TEST UVC LAB PCR Today 12/22/2020 20:36 EDT COVID-19 TESTING Routine 12/22/2020 20:3 6 EDT HOLD BLUE TOP Routine 12/22/2020 20:36 EDT DIFFERENTIAL, AUTOMATED MANUAL Today 12/22/2020 20:35 EDT BETA HYDROXYBUTYRATE STAT Add-on 12/22/2020 20:35 EDT SED RATE Routine 12/22/2020 20:35 EDT COMPLETE BLOOD COUNT AND DIFFERENTIAL STAT 12/22/2020 20:35 EDT C REACTIVE PROTEIN STAT 12/22/2020 20 :35 EDT COMPREHENSIVE METABOLIC PANEL (CMP) STAT 12/22/2020 20:35 EDT XR HIP LEFT 2-3 VIEWS, OPTIONAL PELVIS STAT 12/22/2020 20:25 EDT XR FOOT RIGHT 3 OR MORE VIEWS STAT 12/22/2020 20:25 EDT documented in this encounter Results * ORDERS - SCANNED (01/26/2021 10:47 EST) 01/26/2021 10:4 7 EST us Scan 2 Fermenter Operator ADMISSION ORDERABLES Final Result * (ABNORMAL) POCT GLUCOSE, INTERFACED (01/21/2021 9:07 EST) Glucose, POC 102(H) 70 - 100 mg/dL 01/21/2021 9:19 EST [facility] HN LAB POC COMMENT (GLUCOSE) Test Performed by Nursing Services 01/21/2021 9:19 EST [facility] Blood CAPILLARY BLOOD / Unknown 01/21/2021 9:07 EST 01/21/2021 9:19 EST us Gela Borges MD POINT OF CARE TEST ORDERABLES Final Result [facility] [address] [place] [address] * (ABNORMAL) POCT GLUCOSE, INTERFACED (01/20/2021 21:27 EST) Glucose, POC 137(H) 70 - 100 mg/dL 01/20/2021 21:28 EST [facility] HN LAB POC COMMENT (GLUCOSE) Test Performed by Nursing Services 01/20/2021 21:28 EST [facility] Blood CAPILLARY BLOOD / Unknown 01/20/2021 21:27 EST 01/20/2021 21:28 EST us Gela Borges MD POINT OF CARE TEST ORDERABLES Final Result Performing Organization Address City/[facility]/ZIP Co de Phone Number [facility] [address] [place] [address] * (ABNORMAL) POCT GLUCOSE, INTERFACED (01/20/2021 17:01 EST) Glucose, POC 156(H) 70 - 100 mg/dL 01/20/2021 17:02 EST [facility] HN LAB POC COMMENT (GLUCOSE) Test Performed by Nursing Services 01/20/2021 17:02 EST [facility] Blood CAPILLARY BLOOD / Unknown 01/20/2021 17:01 EST 01/20/2021 17:02 EST Gela Borges MD POINT OF CARE TEST ORDERABLES Final Result Performing Organization Address City/[facility] Co de Phone Number [facility] [address] [place] [address] * CT UROGRAM (01/20/2021 15:47 EST) Anatomical Region Laterality Modality Body Computed Tomogra phy 01/20/2021 16:2 7 EST Impressions 01/20/2021 16:[address] urogram without suspicious urinary tract abnormality. Gas in the bladder in the context of a Scanlon in place. Wall thickening of the rectum surrounding stool material, correlate clinically for stercoral proctitis. Distention of the stomach most likely due to recent ingested meal rather than gastric motility or gastric outlet obstruction issues. Severe changes of the left coxofemoral joint. Narrative 01/20/2021 16:[address] UROGRAM ??01/20/2021 2:30 PM Signs and Symptoms/Comments: ?? Hematuria, gross/macroscopic Technique: Precontrast scans were initially obtained from the top of the kidneys through the bladder. ??This was followed by a contrast-enhanced, nephropyelographic phase using a split bolus technique: 65 cc of 350 mg% nonionic IV contrast administered at a rate of 1 cc/second; then after a 12-minute delay, a 50 cc bolus of 350 mg% IV contrast at 1 cc/second was administered; images were obtained at 100 seconds after a second bolus. Coronal and sagittal reconstructions were performed. Comparison: None relevant Findings: Lower chest: No suspicious pulmonary lesion Hepatobiliary: No suspicious hepatic lesion or biliary dilatation. Questionable sludge in the gallbladder without CT evidence of cholecystitis. Spleen, pancreas, adrenal glands: Marked atrophy of the pancreas. No splenomegaly. No adrenal lesion. Urinary Tract: --Unenhanced images: No hydronephrosis or urinary tract calcification. Gas in the bladder and the presence of a Scanlon catheter. --Post contrast renal parenchyma: No cortical renal lesion or delayed renal excretion --Urographic phase collecting system, ureters: No urothelial thickening or filling defect. --Urinary bladder:Mildly trabeculated although not distended due to Scanlon. Prostate, seminal vesicles: No abnormality Bowel: The stomach is markedly distended and filled with material most likely recent ingestion of the medial. No small bowel dilatation. Moderate stool burden throughout the colon and rectum. Rectal wall is circumferentially prominent with minimal presacral stranding. 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 Periosteal reaction surrounding the neck without definite cortical interruption is likely correlating with the finding seen on recent MRI of the hip. Care Connector: Gaseous distention of the stomach. Procedure Note Kaylie Owens MD - 01/20/2021 CT UROGRAM 01/20/2021 2:30 PM Signs and Symptoms/Comments: Hematuria, gross/macroscopic Technique: Precontrast scans were initially obtained from the top of the kidneysthrough the bladder. This was followed by a contrast-enhanced,nephropyelographic phase using a split bolus technique: 65 cc of 350 mg%nonionic IV contrast administered at a rate of 1 cc/second; then after [id number] delay, a 50 cc bolus of 350 mg% IV contrast at 1 cc/second wasadministered; images were obtained at 100 seconds after a second bolus.Coronal and sagittal reconstructions were performed. Comparison: None relevant Findings: Lower chest: No suspicious pulmonary lesion Hepatobiliary: No suspicious hepatic lesion or biliary dilatation.Questionable sludge in the gallbladder without CT evidence ofcholecystitis. Spleen, pancreas, adrenal glands: Marked atrophy of the pancreas. Nosplenomegaly. No adrenal lesion. Urinary Tract: --Unenhanced images: No hydronephrosis or urinary tract calcification. Gasin the bladder and the presence of a Scanlon catheter. --Post contrast renal parenchyma: No cortical renal lesion or delayedrenal excretion --Urographic phase collecting system, ureters: No urothelial thickening orfilling defect. --Urinary bladder:Mildly trabeculated although not distended due toFoley. Prostate, seminal vesicles: No abnormality Bowel: The stomach is markedly distended and filled with material mostlikely recent ingestion of the medial. No small bowel dilatation. Moderatestool burden throughout the colon and rectum. Rectal wall iscircumferentially prominent with minimal presacral stranding. Peritoneal cavity / Subperitoneal space: No free air or free fluid Lymphovascular: No lymphadenopathy Abdominal wall: Small fat-containing umbilical hernia Musculoskeletal: Severe osteoarthritic changes of the left hip andmoderate changes of the left hip. Periosteal reaction surrounding the neckwithout definite cortical interruption is likely correlating with thefinding seen on recent MRI of the hip. Care Connector: Gaseous distention of the stomach. IMPRESSION Negative CT urogram without suspicious urinary tract abnormality. Gas inthe bladder in the context of a Scanlon in place. Wall thickening of the rectum surrounding stool material, correlateclinically for stercoral proctitis. Distention of the stomach most likely due to recent ingested meal ratherthan gastric motility or gastric outlet obstruction issues. Severe changes of the left coxofemoral joint. Corey Alvarez MD IMG CT ORDERABLES Osbia l Result * COVID-19 TEST [facility] PCR (01/20/2021 13:49 EST) Swab ENTIRE NASOPHARYNX / Unknown Swab / Unknown 01/20/2021 13:49 EST 01/20/2021 13:57 EST Corey Alvarez MD MICROBIOLOGY - GENERAL ORDERABLES Final Result [facility] [address] [place] [id number] * COVID-19 TESTING (01/20/2021 13:49 EST) COVID-19 rt-PCR Result Negative Negative 01/20/2021 18:09 [facility] Comment: This test has not been FDA cleared or approved. This test has been authorized by FDA under an EUA for use by authorized laboratories. This test has been authorized only for detection of nucleic acid from 2019-nCoV, not for any other viruses or pathogens. This test is only authorized for the duration of the declaration that circumstances exist justifying the authorization of emergency use of in vitro diagnostic tests for detection and/or diagnosis of 2019-nCoV under section 564(b)(1) of Act, 21 U.S.C ?? 360bbb-3(b) (1), unless the authorization is terminated or revoked sooner. Negative results do not preclude 2019-nCoV infection and should not be used as the sole basis for treatment or other patient management decisions. Negative results must be combined with clinical observations, patient history, and epidemiological information. Performed on the [employer] instrument Performing Lab [place] [facility] 01/20/2021 18:09 [facility] Swab ENTIRE NASOPHARYNX / Unknown Swab / Unknown 01/20/2021 13:49 EST 01/20/2021 13:57 EST Corey Alvarez MD MICROBIOLOGY - GENERAL ORDERABLES Final Result [facility] [address] [place] [address] * NON PROJECT MANAGEMENT PROFESSOR/FNA CYTOLOGY (01/20/2021 13:16 EST) Note to Patient The following pathology results have been interpreted by your pathologist and may be available to you before your health provider has had the opportunity to review them. Please allow time for your provider to receive these results and explore management options, if applicable. 01/21/2021 11:30 [facility] Final Diagnosis URINE, CATHETERIZED, CYTOLOGIC EVALUATION: - Negative for high grade urothelial carcinoma. - Specimen predominantly composed of abundant blood, proteinaceous debris, acute inflammation, and crystals. 01/21/2021 11:30 [facility] Attestation By the signature below, the attending physician certifies that they have personally conducted a gross and/or microscopic examination of the described specimens and rendered or confirmed the above diagnosis. 01/21/2021 11:30 [facility] at 1130 Clinical History hematuria 01/21/2021 11:30 [facility] Gross Description A. 90cc's of opaque brown fluid were received and processed by selective cellular enhancement technique. 01/21/2021 11:30 [facility] Performing Lab [facility] 01/21/2021 11:30 [facility] Scanned Images 01/21/2021 11:30 [facility] Urine URINE SPECIMEN COLLECTION, CATHETERIZED / Unknown Urine Collect / Unknown 01/20/2021 13:16 EST 01/20/2021 13:40 EST us Corey Alvarez MD PATHOLOGY ORDERABLES F inal Result Performing Organization Address City/[facility]/ZIP Co de Phone Number [facility] [address] [place] [address] * (ABNORMAL) POCT GLUCOSE, INTERFACED (01/20/2021 11:25 EST) Glucose, POC 141(H) 70 - 100 mg/dL 01/20/2021 11:26 [facility] HN LAB POC COMMENT (GLUCOSE) Test Performed by Nursing Services 01/20/2021 11:26 [facility] Blood CAPILLARY BLOOD / Unknown 01/20/2021 11:25 EST 01/20/2021 11:26 EST us Gela Borges MD POINT OF CARE TEST ORDERABLES Final Result Performing Organization Address City/[facility]/ZIP Co de Phone Number [facility] [address] [place] [address] * (ABNORMAL) POCT GLUCOSE, INTERFACED (01/20/2021 8:13 EST) Glucose, POC 135(H) 70 - 100 mg/dL 01/20/2021 8:14 [facility] HN LAB POC COMMENT (GLUCOSE) Test Performed by Nursing Services 01/20/2021 8:14 [facility] Blood CAPILLARY BLOOD / Unknown 01/20/2021 8:13 EST 01/20/2021 8:14 EST Gela Borges MD POINT OF CARE TEST ORDERABLES Final Result [facility] [address] [place] [address] * (ABNORMAL) COMPLETE BLOOD COUNT (01/20/2021 5:22 EST) WBC 11.13(H) 4.00 - 10.40 K/cmm 01/20/2021 5:45 [facility] RBC 3.29(L) 4.36 - 5.78 M/cmm 01/20/2021 5:45 [facility] Hemoglobin 10.1(L) 13.8 - 17.3 gm/dL 01/20/2021 5:45 [facility] HCT 30.1(L) 39.5 - 50.2 % 01/20/2021 5:45 [facility] MCV 92 81 - 95 fl 01/20/2021 5:45 [facility] MCH 30.7 27.6 - 33.0 pg 01/20/2021 5:45 [facility] MCHC 33.6 32.8 - 36.4 gm/dL 01/20/2021 5:45 [facility] RDW-CV 13.4 <14.2 % 01/20/2021 5:45 [facility] RDW-SD 44.2 <46.0 fl 01/20/2021 5:45 [facility] PLT 303 141 - 377 K/cmm 01/20/2021 5:45 [facility] MPV 9.2(L) 9.5 - 12.7 fl 01/20/2021 5:45 [facility] Blood BLOOD SAMPLE TAKEN FROM CENTRAL LINE / Unknown Venipuncture / Unknown 01/20/2021 5:22 EST 01/20/2021 5:33 EST Desiree Marcano DO HEMATOLOGY & PF4 ORDERABLES Fi nal Result Performing Organization Address City/[facility]/ZIP Co de Phone Number [facility] [address] [place] [address] * (ABNORMAL) BASIC METABOLIC PANEL (BMP) (01/20/2021 5:22 EST) Sodium 140 136 - 145 mmol/L 01/20/2021 6:02 [facility] Potassium 4.3 3.5 - 5.0 mmol/L 01/20/2021 6:02 [facility] Chloride 104 96 - 110 mmol/L 01/20/2021 6:02 [facility] CO2 Total 26 22 - 32 mmol/L 01/20/2021 6:02 [facility] Anion Gap 10 8 - 16 01/20/2021 6:02 [facility] Glucose 138(H) 70 - 100 mg/dL 01/20/2021 6:02 [facility] Calcium 9.2 8.5 - 10.5 mg/dL 01/20/2021 6:02 [facility] BUN 20 10 - 26 mg/dL 01/20/2021 6:02 [facility] Creatinine 0.64(L) 0.66 - 1.25 mg/dL 01/20/2021 6:02 [facility] eGFR 107 >60 mL/min/1.73 m2 01/20/2021 6:02 [facility] Blood VENOUS BLOOD / Unknown Venipuncture / Unknown 01/20/2021 5:22 EST 01/20/2021 5:33 EST Desiree Marcano DO CHEMISTRY & BLOOD GAS ORDERABL ES Final Result Performing Organization Address City/[facility]/ZIP Co de Phone Number [facility] [address] [place] [address] * (ABNORMAL) POCT GLUCOSE, INTERFACED (01/19/2021 20:42 EST) Glucose, POC 102(H) 70 - 100 mg/dL 01/19/2021 20:43 EST [facility] HN LAB POC COMMENT (GLUCOSE) Test Performed by Nursing Services 01/19/2021 20:43 EST [facility] Blood CAPILLARY BLOOD / Unknown 01/19/2021 20:42 EST 01/19/2021 20:43 EST Gela Borges MD POINT OF CARE TEST ORDERABLES Final Result [facility] [address] [place] [address] * (ABNORMAL) POCT GLUCOSE, INTERFACED (01/19/2021 16:43 EST) Glucose, POC 190(H) 70 - 100 mg/dL 01/19/2021 18:13 EST [facility] HN LAB POC COMMENT (GLUCOSE) Test Performed by Nursing Services 01/19/2021 18:13 EST [facility] Blood CAPILLARY BLOOD / Unknown 01/19/2021 16:43 EST 01/19/2021 18:13 EST Gela Borges MD POINT OF CARE TEST ORDERABLES Final Result [facility] [address] [place] [address] * (ABNORMAL) POCT GLUCOSE, INTERFACED (01/19/2021 11:27 EST) Glucose, POC 106(H) 70 - 100 mg/dL 01/19/2021 11:28 EST [facility] HN LAB POC COMMENT (GLUCOSE) Test Performed by Nursing Services 01/19/2021 11:28 EST [facility] Blood CAPILLARY BLOOD / Unknown 01/19/2021 11:27 EST 01/19/2021 11:28 EST Gela Borges MD POINT OF CARE TEST ORDERABLES Final Result [facility] [address] [place] [address] * (ABNORMAL) POCT GLUCOSE, INTERFACED (01/19/2021 7:44 EST) Glucose, POC 145(H) 70 - 100 mg/dL 01/19/2021 7:45 EST [facility] HN LAB POC COMMENT (GLUCOSE) Test Performed by Nursing Services 01/19/2021 7:45 EST [facility] Blood CAPILLARY BLOOD / Unknown 01/19/2021 7:44 EST 01/19/2021 7:45 EST Gela Borges MD POINT OF CARE TEST ORDERABLES Final Result Performing Organization Address City/[facility]/ZIP Co de Phone Number [facility] [address] [place] [address] * (ABNORMAL) POCT GLUCOSE, INTERFACED (01/18/2021 20:04 EST) Glucose, POC 144(H) 70 - 100 mg/dL 01/18/2021 20:05 EST [facility] HN LAB POC COMMENT (GLUCOSE) Test Performed by Nursing Services 01/18/2021 20:05 EST [facility] Blood CAPILLARY BLOOD / Unknown 01/18/2021 20:04 EST 01/18/2021 20:05 EST us Gela Borges MD POINT OF CARE TEST ORDERABLES Final Result [facility] [address] [place] [address] * (ABNORMAL) POCT GLUCOSE, INTERFACED (01/18/2021 17:27 EST) Glucose, POC 145(H) 70 - 100 mg/dL 01/18/2021 17:28 EST [facility] HN LAB POC COMMENT (GLUCOSE) Test Performed by Nursing Services 01/18/2021 17:28 EST [facility] Blood CAPILLARY BLOOD / Unknown 01/18/2021 17:27 EST 01/18/2021 17:28 EST Gela Borges MD POINT OF CARE TEST ORDERABLES Final Result Performing Organization Address City/[facility]/ZIP Co de Phone Number [facility] [address] [place] [address] * POCT GLUCOSE, INTERFACED (01/18/2021 11:38 EST) Glucose, POC 92 70 - 100 mg/dL 01/18/2021 11:40 EST [facility] HN LAB POC COMMENT (GLUCOSE) Test Performed by Nursing Services 01/18/2021 11:40 EST [facility] Blood CAPILLARY BLOOD / Unknown 01/18/2021 11:38 EST 01/18/2021 11:40 EST us Gela Borges MD POINT OF CARE TEST ORDERABLES Final Result Performing Organization Address [facility]/ZIP Co de Phone Number [facility] [address] [place] [address] * (ABNORMAL) POCT GLUCOSE, INTERFACED (01/18/2021 7:01 EST) Glucose, POC 109(H) 70 - 100 mg/dL 01/18/2021 7:03 EST [facility] HN LAB POC COMMENT (GLUCOSE) Test Performed by Nursing Services 01/18/2021 7:03 EST [facility] Blood CAPILLARY BLOOD / Unknown 01/18/2021 7:01 EST 01/18/2021 7:03 EST us Gela Borges MD POINT OF CARE TEST ORDERABLES Final Result Performing Organization Address City/[facility]/ZIP Co de Phone Number [facility] [address] [place] [address] * (ABNORMAL) POCT GLUCOSE, INTERFACED (01/18/2021 6:47 EST) Glucose, POC 109(H) 70 - 100 mg/dL 01/18/2021 8:02 EST [facility] HN LAB POC COMMENT (GLUCOSE) Test Performed by Nursing Services 01/18/2021 8:02 EST [facility] Blood CAPILLARY BLOOD / Unknown 01/18/2021 6:47 EST 01/18/2021 8:02 EST Lewis Davis MD POINT OF CARE TEST ORDERA BLES Final Result Performing Organization Address City/[facility]/ZIP Co de Phone Number [facility] [address] [place] [address] * (ABNORMAL) POCT GLUCOSE, INTERFACED (01/17/2021 20:41 EST) Glucose, POC 171(H) 70 - 100 mg/dL 01/17/2021 20:42 EST [facility] HN LAB POC COMMENT (GLUCOSE) Test Performed by Nursing Services 01/17/2021 20:42 EST [facility] Blood CAPILLARY BLOOD / Unknown 01/17/2021 20:41 EST 01/17/2021 20:42 EST Result [facility] Gela Borges MD POINT OF CARE TEST ORDERABLES Final Result Performing Organization Address City/[facility]/ZIP Co de Phone Number [facility] [address] [place] [address] * (ABNORMAL) POCT GLUCOSE, INTERFACED (01/17/2021 17:21 EST) Glucose, POC 184(H) 70 - 100 mg/dL 01/17/2021 17:22 EST [facility] HN LAB POC COMMENT (GLUCOSE) Test Performed by Nursing Services 01/17/2021 17:22 EST [facility] Blood CAPILLARY BLOOD / Unknown 01/17/2021 17:21 EST 01/17/2021 17:22 EST Gela Borges MD POINT OF CARE TEST ORDERABLES Final Result Performing Organization Address City/[facility]/ZIP Co de Phone Number [facility] [address] [place] [address] * POCT GLUCOSE, INTERFACED (01/17/2021 11:18 EST) Glucose, POC 87 70 - 100 mg/dL 01/17/2021 11:20 EST [facility] HN LAB POC COMMENT (GLUCOSE) Test Performed by Nursing Services 01/17/2021 11:20 EST [facility] Blood CAPILLARY BLOOD / Unknown 01/17/2021 11:18 EST 01/17/2021 11:20 EST Gela Borges MD POINT OF CARE TEST ORDERABLES Final Result Performing Organization Address [facility] Co de Phone Number [facility] [address] [place] [address] * (ABNORMAL) POCT GLUCOSE, INTERFACED (01/17/2021 7:09 EST) Glucose, POC 132(H) 70 - 100 mg/dL 01/17/2021 7:10 EST [facility] HN LAB POC COMMENT (GLUCOSE) Test Performed by Nursing Services 01/17/2021 7:10 EST [facility] Blood CAPILLARY BLOOD / Unknown 01/17/2021 7:09 EST 01/17/2021 7:10 EST us Ti Maloney MD POINT OF CARE TEST ORDERABLES Fi nal Result Performing Organization Address City/[facility]/ZIP Co de Phone Number [facility] [address] [place] [address] * (ABNORMAL) POCT GLUCOSE, INTERFACED (01/17/2021 6:13 EST) Glucose, POC 129(H) 70 - 100 mg/dL 01/17/2021 6:18 EST [facility] HN LAB POC COMMENT (GLUCOSE) Test Performed by Nursing Services 01/17/2021 6:18 EST [facility] Blood CAPILLARY BLOOD / Unknown 01/17/2021 6:13 EST 01/17/2021 6:18 EST us Gela Borges MD POINT OF CARE TEST ORDERABLES Final Result [facility] [address] [place] [address] * (ABNORMAL) COMPLETE BLOOD COUNT (01/17/2021 4:00 EST) WBC 11.96(H) 4.00 - 10.40 K/cmm 01/17/2021 4:22 [facility] RBC 3.42(L) 4.36 - 5.78 M/cmm 01/17/2021 4:22 [facility] Hemoglobin 10.5(L) 13.8 - 17.3 gm/dL 01/17/2021 4:22 [facility] HCT 31.2(L) 39.5 - 50.2 % 01/17/2021 4:22 [facility] MCV 91 81 - 95 fl 01/17/2021 4:22 [facility] MCH 30.7 27.6 - 33.0 pg 01/17/2021 4:22 [facility] MCHC 33.7 32.8 - 36.4 gm/dL 01/17/2021 4:22 [facility] RDW-CV 13.4 <14.2 % 01/17/2021 4:22 [facility] RDW-SD 44.8 <46.0 fl 01/17/2021 4:22 [facility] PLT 370 141 - 377 K/cmm 01/17/2021 4:22 [facility] MPV 9.1(L) 9.5 - 12.7 fl 01/17/2021 4:22 [facility] Blood VENOUS BLOOD / Unknown Venipuncture / Unknown 01/17/2021 4:00 EST 01/17/2021 4:10 EST us Desiree Krys DO HEMATOLOGY & PF4 ORDERABLES Fi nal Result [facility] [address] [place] [address] * (ABNORMAL) BASIC METABOLIC PANEL (BMP) (01/17/2021 4:00 EST) Sodium 138 136 - 145 mmol/L 01/17/2021 4:50 [facility] Potassium 4.4 3.5 - 5.0 mmol/L 01/17/2021 4:50 [facility] Chloride 99 96 - 110 mmol/L 01/17/2021 4:50 [facility] CO2 Total 29 22 - 32 mmol/L 01/17/2021 4:50 [facility] Anion Gap 10 8 - 16 01/17/2021 4:50 [facility] Glucose 133(H) 70 - 100 mg/dL 01/17/2021 4:50 [facility] Calcium 9.6 8.5 - 10.5 mg/dL 01/17/2021 4:50 [facility] BUN 19 10 - 26 mg/dL 01/17/2021 4:50 [facility] Creatinine 0.60(L) 0.66 - 1.25 mg/dL 01/17/2021 4:50 [facility] eGFR 110 >60 mL/min/1.73 m2 01/17/2021 4:50 [facility] Blood VENOUS BLOOD / Unknown Venipuncture / Unknown 01/17/2021 4:00 EST 01/17/2021 4:10 EST Desiree Marcano DO CHEMISTRY & BLOOD GAS ORDERABL ES Final Result [facility] [address] [place] [address] * (ABNORMAL) POCT GLUCOSE, INTERFACED (01/16/2021 21:01 EST) Glucose, POC 114(H) 70 - 100 mg/dL 01/16/2021 21:02 EST [facility] HN LAB POC COMMENT (GLUCOSE) Test Performed by Nursing Services 01/16/2021 21:02 EST [facility] Blood CAPILLARY BLOOD / Unknown 01/16/2021 21:01 EST 01/16/2021 21:02 EST Gela Borges MD POINT OF CARE TEST ORDERABLES Final Result [facility] [address] [place] [address] * (ABNORMAL) POCT GLUCOSE, INTERFACED (01/16/2021 17:05 EST) Glucose, POC 168(H) 70 - 100 mg/dL 01/16/2021 17:06 EST [facility] HN LAB POC COMMENT (GLUCOSE) Test Performed by Nursing Services 01/16/2021 17:06 EST [facility] Blood CAPILLARY BLOOD / Unknown 01/16/2021 17:05 EST 01/16/2021 17:06 EST us Gela Borges MD POINT OF CARE TEST ORDERABLES Final Result Performing Organization Address City/[facility]/ZIP Co de Phone Number [facility] [address] [place] [address] * POCT GLUCOSE, INTERFACED (01/16/2021 11:04 EST) Glucose, POC 99 70 - 100 mg/dL 01/16/2021 11:05 EST [facility] HN LAB POC COMMENT (GLUCOSE) Test Performed by Nursing Services 01/16/2021 11:05 EST [facility] Blood CAPILLARY BLOOD / Unknown 01/16/2021 11:04 EST 01/16/2021 11:05 EST us Gela Borges MD POINT OF CARE TEST ORDERABLES Final Result [facility] [address] [place] [address] * POCT GLUCOSE, INTERFACED (01/16/2021 7:05 EST) Glucose, POC 79 70 - 100 mg/dL 01/16/2021 7:08 EST [facility] HN LAB POC COMMENT (GLUCOSE) Test Performed by Nursing Services 01/16/2021 7:08 EST [facility] Blood CAPILLARY BLOOD / Unknown 01/16/2021 7:05 EST 01/16/2021 7:08 EST Gela Borges MD POINT OF CARE TEST ORDERABLES Final Result [facility] [address] [place] [address] * (ABNORMAL) POCT GLUCOSE, INTERFACED (01/15/2021 20:18 EST) Glucose, POC 180(H) 70 - 100 mg/dL 01/15/2021 20:19 EST [facility] HN LAB POC COMMENT (GLUCOSE) Test Performed by Nursing Services 01/15/2021 20:19 EST [facility] Blood CAPILLARY BLOOD / Unknown 01/15/2021 20:18 EST 01/15/2021 20:19 EST Result [facility] Gela Borges MD POINT OF CARE TEST ORDERABLES Final Result [facility] [address] [place] [address] * POCT GLUCOSE, INTERFACED (01/15/2021 16:45 EST) Glucose, POC 74 70 - 100 mg/dL 01/15/2021 17:43 EST [facility] HN LAB POC COMMENT (GLUCOSE) Test Performed by Nursing Services 01/15/2021 17:43 EST [facility] Blood CAPILLARY BLOOD / Unknown 01/15/2021 16:45 EST 01/15/2021 17:43 EST Gela Borges MD POINT OF CARE TEST ORDERABLES Final Result [facility] [address] [place] [address] * (ABNORMAL) POCT GLUCOSE, INTERFACED (01/15/2021 12:32 EST) Glucose, POC 102(H) 70 - 100 mg/dL 01/15/2021 12:59 EST [facility] HN LAB POC COMMENT (GLUCOSE) Test Performed by Nursing Services 01/15/2021 12:59 EST [facility] Blood CAPILLARY BLOOD / Unknown 01/15/2021 12:32 EST 01/15/2021 12:59 EST Gela Borges MD POINT OF CARE TEST ORDERABLES Final Result [facility] [address] [place] [address] * (ABNORMAL) POCT GLUCOSE, INTERFACED (01/15/2021 7:18 EST) Glucose, POC 142(H) 70 - 100 mg/dL 01/15/2021 7:19 EST [facility] HN LAB POC COMMENT (GLUCOSE) Test Performed by Nursing Services 01/15/2021 7:19 EST [facility] Blood CAPILLARY BLOOD / Unknown 01/15/2021 7:18 EST 01/15/2021 7:19 EST Gela Borges MD POINT OF CARE TEST ORDERABLES Final Result [facility] [address] [place] [address] * (ABNORMAL) POCT GLUCOSE, INTERFACED (01/15/2021 0:03 EST) Glucose, POC 128(H) 70 - 100 mg/dL 01/15/2021 0:20 EST [facility] HN LAB POC COMMENT (GLUCOSE) Test Performed by Nursing Services 01/15/2021 0:20 EST [facility] Blood CAPILLARY BLOOD / Unknown 01/15/2021 0:03 EST 01/15/2021 0:20 EST Result Claudy Maloney MD POINT OF CARE TEST ORDERABLES Fi nal Result Performing Organization Address City/[facility]/ZIP Co de Phone Number [facility] [address] [place] [address] * POCT GLUCOSE, INTERFACED (01/14/2021 21:34 EST) Glucose, POC 80 70 - 100 mg/dL 01/14/2021 21:36 EST [facility] HN LAB POC COMMENT (GLUCOSE) Test Performed by Nursing Services 01/14/2021 21:36 EST [facility] Blood CAPILLARY BLOOD / Unknown 01/14/2021 21:34 EST 01/14/2021 21:36 EST Result Claudy Maloney MD POINT OF CARE TEST ORDERABLES Fi nal Result Performing Organization Address [facility]/ZIP Co de Phone Number [facility] [address] [place] [address] * (ABNORMAL) POCT GLUCOSE, INTERFACED (01/14/2021 20:42 EST) Glucose, POC 118(H) 70 - 100 mg/dL 01/14/2021 20:43 EST [facility] HN LAB POC COMMENT (GLUCOSE) Test Performed by Nursing Services 01/14/2021 20:43 EST [facility] Blood CAPILLARY BLOOD / Unknown 01/14/2021 20:42 EST 01/14/2021 20:43 EST Result Claudy Borges MD POINT OF CARE TEST ORDERABLES Final Result Performing Organization Address City/[facility]/ZIP Co de Phone Number [facility] [address] [place] [address] * (ABNORMAL) POCT GLUCOSE, INTERFACED (01/14/2021 16:43 EST) Glucose, POC 173(H) 70 - 100 mg/dL 01/14/2021 17:44 EST [facility] HN LAB POC COMMENT (GLUCOSE) Test Performed by Nursing Services 01/14/2021 17:44 EST [facility] Blood CAPILLARY BLOOD / Unknown 01/14/2021 16:43 EST 01/14/2021 17:43 EST us Gela Borges MD POINT OF CARE TEST ORDERABLES Final Result Performing Organization Address City/[facility] Co de Phone Number [facility] [address] [place] [address] * (ABNORMAL) POCT GLUCOSE, INTERFACED (01/14/2021 11:49 EST) Glucose, POC 65(L) 70 - 100 mg/dL 01/14/2021 11:50 EST [facility] HN LAB POC COMMENT (GLUCOSE) Test Performed by Nursing Services 01/14/2021 11:50 EST [facility] Blood CAPILLARY BLOOD / Unknown 01/14/2021 11:49 EST 01/14/2021 11:50 EST us Gela Borges MD POINT OF CARE TEST ORDERABLES Final Result Performing Organization Address [facility] Co de Phone Number [facility] [address] [place] [address] * ORDERS - SCANNED (01/14/2021 11:11 EST) 01/14/2021 11:1 1 EST us Scan 2 Fermenter Operator ADMISSION ORDERABLES Final Result * POCT GLUCOSE, INTERFACED (01/14/2021 9:07 EST) Glucose, POC 99 70 - 100 mg/dL 01/14/2021 9:31 EST [facility] HN LAB POC COMMENT (GLUCOSE) Test Performed by Nursing Services 01/14/2021 9:31 EST [facility] Blood CAPILLARY BLOOD / Unknown 01/14/2021 9:07 EST 01/14/2021 9:31 EST us Gela Borges MD POINT OF CARE TEST ORDERABLES Final Result [facility] [address] [place] [address] * (ABNORMAL) COMPLETE BLOOD COUNT (01/14/2021 5:36 EST) WBC 9.80 4.00 - 10.40 K/cmm 01/14/2021 5:48 [facility] RBC 3.17(L) 4.36 - 5.78 M/cmm 01/14/2021 5:48 [facility] Hemoglobin 9.7(L) 13.8 - 17.3 gm/dL 01/14/2021 5:48 [facility] HCT 28.6(L) 39.5 - 50.2 % 01/14/2021 5:48 [facility] MCV 90 81 - 95 fl 01/14/2021 5:48 [facility] MCH 30.6 27.6 - 33.0 pg 01/14/2021 5:48 [facility] MCHC 33.9 32.8 - 36.4 gm/dL 01/14/2021 5:48 [facility] RDW-CV 13.2 <14.2 % 01/14/2021 5:48 [facility] RDW-SD 43.1 <46.0 fl 01/14/2021 5:48 [facility] PLT 362 141 - 377 K/cmm 01/14/2021 5:48 [facility] MPV 9.2(L) 9.5 - 12.7 fl 01/14/2021 5:48 [facility] Blood BLOOD SAMPLE TAKEN FROM CENTRAL LINE / Unknown Venipuncture / Unknown 01/14/2021 5:36 EST 01/14/2021 5:42 EST us Desiree Marcano DO HEMATOLOGY & PF4 ORDERABLES Fi nal Result [facility] [address] [place] [address] * (ABNORMAL) BASIC METABOLIC PANEL (BMP) (01/14/2021 5:36 EST) Sodium 137 136 - 145 mmol/L 01/14/2021 6:09 [facility] Potassium 4.3 3.5 - 5.0 mmol/L 01/14/2021 6:09 [facility] Chloride 101 96 - 110 mmol/L 01/14/2021 6:09 [facility] CO2 Total 29 22 - 32 mmol/L 01/14/2021 6:09 [facility] Anion Gap 7(L) 8 - 16 01/14/2021 6:09 [facility] Glucose 122(H) 70 - 100 mg/dL 01/14/2021 6:09 [facility] Calcium 9.3 8.5 - 10.5 mg/dL 01/14/2021 6:09 [facility] BUN 17 10 - 26 mg/dL 01/14/2021 6:09 [facility] Creatinine 0.59(L) 0.66 - 1.25 mg/dL 01/14/2021 6:09 [facility] eGFR 111 >60 mL/min/1.73 m2 01/14/2021 6:09 [facility] Blood VENOUS BLOOD / Unknown Venipuncture / Unknown 01/14/2021 5:36 EST 01/14/2021 5:42 EST Desiree Marcano DO CHEMISTRY & BLOOD GAS ORDERABL ES Final Result [facility] [address] [place] [address] * POCT GLUCOSE, INTERFACED (01/13/2021 22:58 EST) Glucose, POC 94 70 - 100 mg/dL 01/14/2021 2:57 EST [facility] HN LAB POC COMMENT (GLUCOSE) Test Performed by Nursing Services 01/14/2021 2:57 EST [facility] Blood CAPILLARY BLOOD / Unknown 01/13/2021 22:58 EST 01/14/2021 2:57 EST us Ti Maloney MD POINT OF CARE TEST ORDERABLES Fi nal Result Performing Organization Address City/[facility]/ZIP Co de Phone Number [facility] [address] [place] [address] * (ABNORMAL) POCT GLUCOSE, INTERFACED (01/13/2021 21:27 EST) Glucose, POC 112(H) 70 - 100 mg/dL 01/13/2021 21:28 EST [facility] HN LAB POC COMMENT (GLUCOSE) Test Performed by Nursing Services 01/13/2021 21:28 EST [facility] Blood CAPILLARY BLOOD / Unknown 01/13/2021 21:27 EST 01/13/2021 21:28 EST us Gela Borges MD POINT OF CARE TEST ORDERABLES Final Result Performing Organization Address [facility] Co de Phone Number [facility] [address] [place] [address] * (ABNORMAL) POCT GLUCOSE, INTERFACED (01/13/2021 16:45 EST) Glucose, POC 135(H) 70 - 100 mg/dL 01/13/2021 20:44 EST [facility] HN LAB POC COMMENT (GLUCOSE) Test Performed by Nursing Services 01/13/2021 20:44 EST [facility] Blood CAPILLARY BLOOD / Unknown 01/13/2021 16:45 EST 01/13/2021 20:44 EST us Gela Borges MD POINT OF CARE TEST ORDERABLES Final Result Performing Organization Address City/[facility]/ZIP Co de Phone Number [facility] [address] [place] [address] * (ABNORMAL) POCT GLUCOSE, INTERFACED (01/13/2021 11:34 EST) Glucose, POC 139(H) 70 - 100 mg/dL 01/13/2021 11:36 [facility] HN LAB POC COMMENT (GLUCOSE) Test Performed by Nursing Services 01/13/2021 11:36 [facility] Blood CAPILLARY BLOOD / Unknown 01/13/2021 11:34 EST 01/13/2021 11:36 EST us Gela Borges MD POINT OF CARE TEST ORDERABLES Final Result [facility] [address] [place] [address] * (ABNORMAL) BASIC METABOLIC PANEL (BMP) (01/13/2021 7:45 EST) Sodium 135(L) 136 - 145 mmol/L 01/13/2021 8:56 [facility] Potassium 4.6 3.5 - 5.0 mmol/L 01/13/2021 8:56 [facility] Chloride 98 96 - 110 mmol/L 01/13/2021 8:56 [facility] CO2 Total 29 22 - 32 mmol/L 01/13/2021 8:56 [facility] Anion Gap 8 8 - 16 01/13/2021 8:56 [facility] Glucose 120(H) 70 - 100 mg/dL 01/13/2021 8:56 [facility] Calcium 9.4 8.5 - 10.5 mg/dL 01/13/2021 8:56 [facility] BUN 18 10 - 26 mg/dL 01/13/2021 8:56 [facility] Creatinine 0.63(L) 0.66 - 1.25 mg/dL 01/13/2021 8:56 [facility] eGFR 108 >60 mL/min/1.73 m2 01/13/2021 8:56 [facility] Blood VENOUS BLOOD / Unknown Venipuncture / Unknown 01/13/2021 7:45 EST 01/13/2021 8:16 EST Desiree Marcano DO CHEMISTRY & BLOOD GAS ORDERABL ES Final Result [facility] [address] [place] [address] * (ABNORMAL) COMPLETE BLOOD COUNT (01/13/2021 7:45 EST) WBC 9.91 4.00 - 10.40 K/cmm 01/13/2021 8:14 [facility] RBC 3.26(L) 4.36 - 5.78 M/cmm 01/13/2021 8:14 [facility] Hemoglobin 9.6(L) 13.8 - 17.3 gm/dL 01/13/2021 8:14 [facility] HCT 29.3(L) 39.5 - 50.2 % 01/13/2021 8:14 [facility] MCV 90 81 - 95 fl 01/13/2021 8:14 [facility] MCH 29.4 27.6 - 33.0 pg 01/13/2021 8:14 [facility] MCHC 32.8 32.8 - 36.4 gm/dL 01/13/2021 8:14 [facility] RDW-CV 13.4 <14.2 % 01/13/2021 8:14 [facility] RDW-SD 43.9 <46.0 fl 01/13/2021 8:14 [facility] PLT 364 141 - 377 K/cmm 01/13/2021 8:14 [facility] MPV 9.2(L) 9.5 - 12.7 fl 01/13/2021 8:14 [facility] Blood VENOUS BLOOD / Unknown Venipuncture / Unknown 01/13/2021 7:45 EST 01/13/2021 8:07 EST Desiree Krys DO HEMATOLOGY & PF4 ORDERABLES Fi nal Result Performing Organization Address City/[facility]/ZIP Co de Phone Number [facility] [address] [place] [address] * POCT GLUCOSE, INTERFACED (01/13/2021 7:07 EST) Glucose, POC 79 70 - 100 mg/dL 01/13/2021 7:08 EST [facility] HN LAB POC COMMENT (GLUCOSE) Test Performed by Nursing Services 01/13/2021 7:08 EST [facility] Blood CAPILLARY BLOOD / Unknown 01/13/2021 7:07 EST 01/13/2021 7:08 EST us Ti Maloney MD POINT OF CARE TEST ORDERABLES Fi nal Result Performing Organization Address [facility] Co de Phone Number [facility] [address] [place] [address] * POCT GLUCOSE, INTERFACED (01/13/2021 6:48 EST) Glucose, POC 77 70 - 100 mg/dL 01/13/2021 6:51 EST [facility] HN LAB POC COMMENT (GLUCOSE) Test Performed by Nursing Services 01/13/2021 6:51 EST [facility] Blood CAPILLARY BLOOD / Unknown 01/13/2021 6:48 EST 01/13/2021 6:51 EST us Ti Maloney MD POINT OF CARE TEST ORDERABLES Fi nal Result Performing Organization Address City/[facility]/ZIP Co de Phone Number [facility] [address] [place] [address] * (ABNORMAL) POCT GLUCOSE, INTERFACED (01/13/2021 6:26 EST) Glucose, POC 64(L) 70 - 100 mg/dL 01/13/2021 6:31 EST [facility] HN LAB POC COMMENT (GLUCOSE) Test Performed by Nursing Services 01/13/2021 6:31 EST [facility] Blood CAPILLARY BLOOD / Unknown 01/13/2021 6:26 EST 01/13/2021 6:31 EST us Ti Maloney MD POINT OF CARE TEST ORDERABLES Fi nal Result Performing Organization Address [facility] Co de Phone Number [facility] [address] [place] [address] * (ABNORMAL) POCT GLUCOSE, INTERFACED (01/13/2021 6:07 EST) Glucose, POC 69(L) 70 - 100 mg/dL 01/13/2021 6:11 EST [facility] HN LAB POC COMMENT (GLUCOSE) Test Performed by Nursing Services 01/13/2021 6:11 EST [facility] Blood CAPILLARY BLOOD / Unknown 01/13/2021 6:07 EST 01/13/2021 6:11 EST us Gela Borges MD POINT OF CARE TEST ORDERABLES Final Result Performing Organization Address [facility] Co de Phone Number [facility] [address] [place] [address] * POCT GLUCOSE, INTERFACED (01/13/2021 1:13 EST) Glucose, POC 79 70 - 100 mg/dL 01/13/2021 1:26 EST [facility] HN LAB POC COMMENT (GLUCOSE) Test Performed by Nursing Services 01/13/2021 1:26 EST [facility] Blood CAPILLARY BLOOD / Unknown 01/13/2021 1:13 EST 01/13/2021 1:26 EST us Ti Maloney MD POINT OF CARE TEST ORDERABLES Fi nal Result Performing Organization Address City/[facility] Co de Phone Number [facility] [address] [place] [address] * POCT GLUCOSE, INTERFACED (01/13/2021 0:18 EST) Glucose, POC 78 70 - 100 mg/dL 01/13/2021 0:23 EST [facility] HN LAB POC COMMENT (GLUCOSE) Test Performed by Nursing Services 01/13/2021 0:23 EST [facility] Blood CAPILLARY BLOOD / Unknown 01/13/2021 0:18 EST 01/13/2021 0:23 EST us Ti Maloney MD POINT OF CARE TEST ORDERABLES Fi nal Result Performing Organization Address City/[facility]/ZIP Co de Phone Number [facility] [address] [place] [address] * (ABNORMAL) POCT GLUCOSE, INTERFACED (01/13/2021 0:01 EST) Glucose, POC 66(L) 70 - 100 mg/dL 01/13/2021 0:06 EST [facility] HN LAB POC COMMENT (GLUCOSE) Test Performed by Nursing Services 01/13/2021 0:06 EST [facility] Blood CAPILLARY BLOOD / Unknown 01/13/2021 0:01 EST 01/13/2021 0:06 EST us Ti Maloney MD POINT OF CARE TEST ORDERABLES Fi nal Result Performing Organization Address City/[facility]/ZIP Co de Phone Number [facility] [address] [place] [address] * (ABNORMAL) POCT GLUCOSE, INTERFACED (01/12/2021 21:07 EST) Glucose, POC 186(H) 70 - 100 mg/dL 01/12/2021 21:32 EST [facility] HN LAB POC COMMENT (GLUCOSE) Test Performed by Nursing Services 01/12/2021 21:32 EST [facility] Blood CAPILLARY BLOOD / Unknown 01/12/2021 21:07 EST 01/12/2021 21:32 EST us Ti Maloney MD POINT OF CARE TEST ORDERABLES Fi nal Result [facility] [address] [place] [address] * (ABNORMAL) POCT GLUCOSE, INTERFACED (01/12/2021 20:07 EST) Glucose, POC 211(H) 70 - 100 mg/dL 01/12/2021 20:12 EST [facility] HN LAB POC COMMENT (GLUCOSE) Test Performed by Nursing Services 01/12/2021 20:12 EST [facility] Blood CAPILLARY BLOOD / Unknown 01/12/2021 20:07 EST 01/12/2021 20:12 EST Gela Borges MD POINT OF CARE TEST ORDERABLES Final Result Performing Organization Address City/[facility]/ZIP Co de Phone Number [facility] [address] [place] [address] * (ABNORMAL) POCT GLUCOSE, INTERFACED (01/12/2021 16:46 EST) Glucose, POC 154(H) 70 - 100 mg/dL 01/12/2021 17:10 EST [facility] HN LAB POC COMMENT (GLUCOSE) Test Performed by Nursing Services 01/12/2021 17:10 EST [facility] Blood CAPILLARY BLOOD / Unknown 01/12/2021 16:46 EST 01/12/2021 17:10 EST Gela Borges MD POINT OF CARE TEST ORDERABLES Final Result Performing Organization Address City/[facility]/ZIP Co de Phone Number [facility] [address] [place] [address] * (ABNORMAL) POCT GLUCOSE, INTERFACED (01/12/2021 13:25 EST) Glucose, POC 160(H) 70 - 100 mg/dL 01/12/2021 13:26 EST [facility] HN LAB POC COMMENT (GLUCOSE) Test Performed by Nursing Services 01/12/2021 13:26 EST [facility] Blood CAPILLARY BLOOD / Unknown 01/12/2021 13:25 EST 01/12/2021 13:26 EST Ti Maloney MD POINT OF CARE TEST ORDERABLES Fi nal Result Performing Organization Address City/[facility]/ZIP Co de Phone Number [facility] [address] [place] [address] * POCT GLUCOSE, INTERFACED (01/12/2021 12:46 EST) Glucose, POC 89 70 - 100 mg/dL 01/12/2021 12:50 EST [facility] HN LAB POC COMMENT (GLUCOSE) Test Performed by Nursing Services 01/12/2021 12:50 EST [facility] Blood CAPILLARY BLOOD / Unknown 01/12/2021 12:46 EST 01/12/2021 12:50 EST us Ti Maloney MD POINT OF CARE TEST ORDERABLES Fi nal Result Performing Organization Address [facility] Co de Phone Number [facility] [address] [place] [address] * (ABNORMAL) POCT GLUCOSE, INTERFACED (01/12/2021 12:33 EST) Glucose, POC 69(L) 70 - 100 mg/dL 01/12/2021 12:38 EST [facility] HN LAB POC COMMENT (GLUCOSE) Test Performed by Nursing Services 01/12/2021 12:38 EST [facility] Blood CAPILLARY BLOOD / Unknown 01/12/2021 12:33 EST 01/12/2021 12:38 EST us Ti Maloney MD POINT OF CARE TEST ORDERABLES Fi nal Result Performing Organization Address City/[facility]/ZIP Co de Phone Number [facility] [address] [place] [address] * (ABNORMAL) POCT GLUCOSE, INTERFACED (01/12/2021 12:00 EST) Glucose, POC 56(L) 70 - 100 mg/dL 01/12/2021 12:38 EST [facility] HN LAB POC COMMENT (GLUCOSE) Test Performed by Nursing Services 01/12/2021 12:38 EST [facility] Blood CAPILLARY BLOOD / Unknown 01/12/2021 12:00 EST 01/12/2021 12:38 EST us Ti Maloney MD POINT OF CARE TEST ORDERABLES Fi nal Result Performing Organization Address City/[facility]/ZIP Co de Phone Number [facility] [address] [place] [address] * (ABNORMAL) POCT GLUCOSE, INTERFACED (01/12/2021 11:36 EST) Glucose, POC 50(L) 70 - 100 mg/dL 01/12/2021 11:41 EST [facility] HN LAB POC COMMENT (GLUCOSE) Test Performed by Nursing Services 01/12/2021 11:41 EST [facility] Blood CAPILLARY BLOOD / Unknown 01/12/2021 11:36 EST 01/12/2021 11:41 EST us Gela Borges MD POINT OF CARE TEST ORDERABLES Final Result Performing Organization Address [facility] Co de Phone Number [facility] [address] [place] [address] * (ABNORMAL) POCT GLUCOSE, INTERFACED (01/12/2021 7:24 EST) Glucose, POC 141(H) 70 - 100 mg/dL 01/12/2021 7:25 EST [facility] HN LAB POC COMMENT (GLUCOSE) Test Performed by Nursing Services 01/12/2021 7:25 EST [facility] Blood CAPILLARY BLOOD / Unknown 01/12/2021 7:24 EST 01/12/2021 7:25 EST us Gela Borges MD POINT OF CARE TEST ORDERABLES Final Result Performing Organization Address City/[facility]/ZIP Co de Phone Number [facility] [address] [place] [address] * (ABNORMAL) POCT GLUCOSE, INTERFACED (01/11/2021 22:31 EST) Glucose, POC 174(H) 70 - 100 mg/dL 01/11/2021 22:33 EST [facility] HN LAB POC COMMENT (GLUCOSE) Test Performed by Nursing Services 01/11/2021 22:33 EST [facility] Blood CAPILLARY BLOOD / Unknown 01/11/2021 22:31 EST 01/11/2021 22:33 EST Gela Borges MD POINT OF CARE TEST ORDERABLES Final Result Performing Organization Address City/[facility]/ZIP Co de Phone Number [facility] [address] [place] [address] * POCT GLUCOSE, INTERFACED (01/11/2021 19:06 EST) Glucose, POC 84 70 - 100 mg/dL 01/11/2021 20:29 EST [facility] HN LAB POC COMMENT (GLUCOSE) Test Performed by Nursing Services 01/11/2021 20:29 EST [facility] Blood CAPILLARY BLOOD / Unknown 01/11/2021 19:06 EST 01/11/2021 20:29 EST us Gela Borges MD POINT OF CARE TEST ORDERABLES Final Result Performing Organization Address [facility] Co de Phone Number [facility] [address] [place] [address] * (ABNORMAL) POCT GLUCOSE, INTERFACED (01/11/2021 13:08 EST) Glucose, POC 107(H) 70 - 100 mg/dL 01/11/2021 13:18 EST [facility] HN LAB POC COMMENT (GLUCOSE) Test Performed by Nursing Services 01/11/2021 13:18 EST [facility] Blood CAPILLARY BLOOD / Unknown 01/11/2021 13:08 EST 01/11/2021 13:18 EST us Gela Borges MD POINT OF CARE TEST ORDERABLES Final Result Performing Organization Address City/[facility]/ZIP Co de Phone Number [facility] [address] [place] [address] * (ABNORMAL) POCT GLUCOSE, INTERFACED (01/11/2021 8:12 EST) Glucose, POC 108(H) 70 - 100 mg/dL 01/11/2021 8:17 [facility] HN LAB POC COMMENT (GLUCOSE) Test Performed by Nursing Services 01/11/2021 8:17 [facility] Blood CAPILLARY BLOOD / Unknown 01/11/2021 8:12 EST 01/11/2021 8:17 EST Gela Borges MD POINT OF CARE TEST ORDERABLES Final Result [facility] [address] [place] [address] * (ABNORMAL) BASIC METABOLIC PANEL (BMP) (01/11/2021 8:03 EST) Pathologist [facility] Sodium 138 136 - 145 mmol/L 01/11/2021 8:39 [facility] Potassium 4.5 3.5 - 5.0 mmol/L 01/11/2021 8:39 [facility] Chloride 98 96 - 110 mmol/L 01/11/2021 8:39 [facility] CO2 Total 28 22 - 32 mmol/L 01/11/2021 8:39 [facility] Anion Gap 12 8 - 16 01/11/2021 8:39 [facility] Glucose 132(H) 70 - 100 mg/dL 01/11/2021 8:39 [facility] Calcium 9.5 8.5 - 10.5 mg/dL 01/11/2021 8:39 [facility] BUN 21 10 - 26 mg/dL 01/11/2021 8:39 [facility] Creatinine 0.62(L) 0.66 - 1.25 mg/dL 01/11/2021 8:39 [facility] eGFR 109 >60 mL/min/1.73 m2 01/11/2021 8:39 [facility] Blood VENOUS BLOOD / Unknown Venipuncture / Unknown 01/11/2021 8:03 EST 01/11/2021 8:08 EST Sea Gomez MD CHEMISTRY & BLOOD GAS ORDERABLES Final Result [facility] [address] [place] [address] * (ABNORMAL) COMPLETE BLOOD COUNT (01/11/2021 8:03 EST) WBC 8.57 4.00 - 10.40 K/cmm 01/11/2021 8:23 [facility] RBC 3.15(L) 4.36 - 5.78 M/cmm 01/11/2021 8:23 [facility] Hemoglobin 9.7(L) 13.8 - 17.3 gm/dL 01/11/2021 8:23 [facility] HCT 28.9(L) 39.5 - 50.2 % 01/11/2021 8:23 [facility] MCV 92 81 - 95 fl 01/11/2021 8:23 [facility] MCH 30.8 27.6 - 33.0 pg 01/11/2021 8:23 [facility] MCHC 33.6 32.8 - 36.4 gm/dL 01/11/2021 8:23 [facility] RDW-CV 13.4 <14.2 % 01/11/2021 8:23 [facility] RDW-SD 44.7 <46.0 fl 01/11/2021 8:23 [facility] PLT 398(H) 141 - 377 K/cmm 01/11/2021 8:23 [facility] MPV 9.3(L) 9.5 - 12.7 fl 01/11/2021 8:23 [facility] Blood BLOOD SAMPLE TAKEN FROM CENTRAL LINE / Unknown Venipuncture / Unknown 01/11/2021 8:03 EST 01/11/2021 8:08 EST Sea Gomez MD HEMATOLOGY & PF4 ORDERABLES Sobia l Result [facility] [address] [place] [address] * (ABNORMAL) POCT GLUCOSE, INTERFACED (01/10/2021 20:47 EST) Glucose, POC 151(H) 70 - 100 mg/dL 01/10/2021 20:56 EST [facility] HN LAB POC COMMENT (GLUCOSE) Test Performed by Nursing Services 01/10/2021 20:56 EST [facility] Blood CAPILLARY BLOOD / Unknown 01/10/2021 20:47 EST 01/10/2021 20:56 EST Gela Borges MD POINT OF CARE TEST ORDERABLES Final Result [facility] [address] [place] [address] * (ABNORMAL) POCT GLUCOSE, INTERFACED (01/10/2021 18:11 EST) Glucose, POC 134(H) 70 - 100 mg/dL 01/10/2021 18:12 EST [facility] HN LAB POC COMMENT (GLUCOSE) Test Performed by Nursing Services 01/10/2021 18:12 EST [facility] Blood CAPILLARY BLOOD / Unknown 01/10/2021 18:11 EST 01/10/2021 18:12 EST Gela Borges MD POINT OF CARE TEST ORDERABLES Final Result [facility] [address] [place] [address] * (ABNORMAL) POCT GLUCOSE, INTERFACED (01/10/2021 12:33 EST) Glucose, POC 116(H) 70 - 100 mg/dL 01/10/2021 12:34 EST [facility] HN LAB POC COMMENT (GLUCOSE) Test Performed by Nursing Services 01/10/2021 12:34 EST [facility] Blood CAPILLARY BLOOD / Unknown 01/10/2021 12:33 EST 01/10/2021 12:34 EST Gela Borges MD POINT OF CARE TEST ORDERABLES Final Result Performing Organization Address City/[facility]/ZIP Co de Phone Number [facility] [address] [place] [address] * (ABNORMAL) POCT GLUCOSE, INTERFACED (01/10/2021 8:00 EST) Glucose, POC 160(H) 70 - 100 mg/dL 01/10/2021 8:01 EST [facility] HN LAB POC COMMENT (GLUCOSE) Test Performed by Nursing Services 01/10/2021 8:01 EST [facility] Blood CAPILLARY BLOOD / Unknown 01/10/2021 8:00 EST 01/10/2021 8:01 EST Gela Borges MD POINT OF CARE TEST ORDERABLES Final Result Performing Organization Address [facility]/ZIP Co de Phone Number [facility] [address] [place] [address] * (ABNORMAL) POCT GLUCOSE, INTERFACED (01/09/2021 20:21 EST) Glucose, POC 205(H) 70 - 100 mg/dL 01/09/2021 20:22 EST [facility] HN LAB POC COMMENT (GLUCOSE) Test Performed by Nursing Services 01/09/2021 20:22 EST [facility] Blood CAPILLARY BLOOD / Unknown 01/09/2021 20:21 EST 01/09/2021 20:22 EST Gela Borges MD POINT OF CARE TEST ORDERABLES Final Result Performing Organization Address City/[facility]/ZIP Co de Phone Number [facility] [address] [place] [address] * (ABNORMAL) POCT GLUCOSE, INTERFACED (01/09/2021 17:09 EST) Glucose, POC 157(H) 70 - 100 mg/dL 01/09/2021 17:13 EST [facility] HN LAB POC COMMENT (GLUCOSE) Test Performed by Nursing Services 01/09/2021 17:13 EST [facility] Blood CAPILLARY BLOOD / Unknown 01/09/2021 17:09 EST 01/09/2021 17:13 EST Gela Borges MD POINT OF CARE TEST ORDERABLES Final Result Performing Organization Address City/[facility]/ZIP Co de Phone Number [facility] [address] [place] [address] * (ABNORMAL) POCT GLUCOSE, INTERFACED (01/09/2021 11:48 EST) Glucose, POC 146(H) 70 - 100 mg/dL 01/09/2021 11:53 EST [facility] HN LAB POC COMMENT (GLUCOSE) Test Performed by Nursing Services 01/09/2021 11:53 EST [facility] Blood CAPILLARY BLOOD / Unknown 01/09/2021 11:48 EST 01/09/2021 11:53 EST Gela Borges MD POINT OF CARE TEST ORDERABLES Final Result Performing Organization Address City/[facility]/ZIP Co de Phone Number [facility] [address] [place] [address] * (ABNORMAL) POCT GLUCOSE, INTERFACED (01/09/2021 8:19 EST) Glucose, POC 220(H) 70 - 100 mg/dL 01/09/2021 8:23 EST [facility] HN LAB POC COMMENT (GLUCOSE) Test Performed by Nursing Services 01/09/2021 8:23 EST [facility] Blood CAPILLARY BLOOD / Unknown 01/09/2021 8:19 EST 01/09/2021 8:23 EST Gela Borges MD POINT OF CARE TEST ORDERABLES Final Result [facility] [address] [place] [address] * (ABNORMAL) BASIC METABOLIC PANEL (BMP) (01/09/2021 5:47 EST) Sodium 134(L) 136 - 145 mmol/L 01/09/2021 6:22 [facility] Potassium 4.5 3.5 - 5.0 mmol/L 01/09/2021 6:22 [facility] Chloride 98 96 - 110 mmol/L 01/09/2021 6:22 [facility] CO2 Total 28 22 - 32 mmol/L 01/09/2021 6:22 [facility] Anion Gap 8 8 - 16 01/09/2021 6:22 [facility] Glucose 245(H) 70 - 100 mg/dL 01/09/2021 6:22 [facility] Calcium 9.4 8.5 - 10.5 mg/dL 01/09/2021 6:22 [facility] BUN 19 10 - 26 mg/dL 01/09/2021 6:22 [facility] Creatinine 0.54(L) 0.66 - 1.25 mg/dL 01/09/2021 6:22 [facility] eGFR 115 >60 mL/min/1.7 3m2 01/09/2021 6:22 [facility] Comment:eGFR calculated sarahi krishnan CKD-EPI equation for non- Americans. Multiply eGFR by 1.16 for patients. Blood VENOUS BLOOD / Unknown Venipuncture / Unknown 01/09/2021 5:47 EST 01/09/2021 5:53 EST Sea Gomez MD CHEMISTRY & BLOOD GAS ORDERABLES Final Result [facility] [address] [place] [address] * (ABNORMAL) COMPLETE BLOOD COUNT (01/09/2021 5:47 EST) WBC 7.29 4.00 - 10.40 K/cmm 01/09/2021 6:01 [facility] RBC 3.29(L) 4.36 - 5.78 M/cmm 01/09/2021 6:01 [facility] Hemoglobin 9.7(L) 13.8 - 17.3 gm/dL 01/09/2021 6:01 [facility] HCT 29.7(L) 39.5 - 50.2 % 01/09/2021 6:01 [facility] MCV 90 81 - 95 fl 01/09/2021 6:01 [facility] MCH 29.5 27.6 - 33.0 pg 01/09/2021 6:01 [facility] MCHC 32.7(L) 32.8 - 36.4 gm/dL 01/09/2021 6:01 [facility] RDW-CV 13.2 <14.2 % 01/09/2021 6:01 [facility] RDW-SD 42.9 <46.0 fl 01/09/2021 6:01 [facility] PLT 375 141 - 377 K/cmm 01/09/2021 6:01 [facility] MPV 9.3(L) 9.5 - 12.7 fl 01/09/2021 6:01 [facility] Blood VENOUS BLOOD / Unknown Venipuncture / Unknown 01/09/2021 5:47 EST 01/09/2021 5:53 EST us Sea Gomez MD HEMATOLOGY & PF4 ORDERABLES Sobia l Result [facility] [address] [place] [address] * (ABNORMAL) POCT GLUCOSE, INTERFACED (01/08/2021 21:02 EDT) Glucose, POC 169(H) 70 - 100 mg/dL 01/08/2021 21:07 EDT [facility] HN LAB POC COMMENT (GLUCOSE) Test Performed by Nursing Services 01/08/2021 21:07 EDT [facility] Blood CAPILLARY BLOOD / Unknown 01/08/2021 21:02 EDT 01/08/2021 21:07 EDT Gela Borges MD POINT OF CARE TEST ORDERABLES Final Result [facility] [address] [place] [address] * (ABNORMAL) POCT GLUCOSE, INTERFACED (01/08/2021 17:36 EDT) Glucose, POC 126(H) 70 - 100 mg/dL 01/08/2021 17:37 EDT [facility] HN LAB POC COMMENT (GLUCOSE) Test Performed by Nursing Services 01/08/2021 17:37 EDT [facility] Blood CAPILLARY BLOOD / Unknown 01/08/2021 17:36 EDT 01/08/2021 17:37 EDT us Gela Borges MD POINT OF CARE TEST ORDERABLES Final Result Performing Organization Address City/[facility]/ZIP Co de Phone Number [facility] [address] [place] [address] * (ABNORMAL) POCT GLUCOSE, INTERFACED (01/08/2021 12:27 EDT) Glucose, POC 106(H) 70 - 100 mg/dL 01/08/2021 12:27 EDT [facility] HN LAB POC COMMENT (GLUCOSE) Test Performed by Nursing Services 01/08/2021 12:27 EDT [facility] Blood CAPILLARY BLOOD / Unknown 01/08/2021 12:27 EDT 01/08/2021 12:27 EDT Gela Borges MD POINT OF CARE TEST ORDERABLES Final Result [facility] [address] [place] [address] * (ABNORMAL) POCT GLUCOSE, INTERFACED (01/08/2021 7:59 EDT) Glucose, POC 143(H) 70 - 100 mg/dL 01/08/2021 8:04 EDT [facility] HN LAB POC COMMENT (GLUCOSE) Test Performed by Nursing Services 01/08/2021 8:04 EDT [facility] Blood CAPILLARY BLOOD / Unknown 01/08/2021 7:59 EDT 01/08/2021 8:04 EDT Gela Borges MD POINT OF CARE TEST ORDERABLES Final Result Performing Organization Address City/[facility]/ZIP Co de Phone Number [facility] [address] [place] [address] * (ABNORMAL) POCT GLUCOSE, INTERFACED (01/07/2021 21:30 EDT) Glucose, POC 165(H) 70 - 100 mg/dL 01/07/2021 21:31 EDT [facility] HN LAB POC COMMENT (GLUCOSE) Test Performed by Nursing Services 01/07/2021 21:31 EDT [facility] Blood CAPILLARY BLOOD / Unknown 01/07/2021 21:30 EDT 01/07/2021 21:31 EDT Gela Borges MD POINT OF CARE TEST ORDERABLES Final Result Performing Organization Address City/[facility]/ZIP Co de Phone Number [facility] [address] [place] [id number] * (ABNORMAL) POCT GLUCOSE, INTERFACED (01/07/2021 18:38 EDT) Glucose, POC 221(H) 70 - 100 mg/dL 01/07/2021 18:43 EDT [facility] HN LAB POC COMMENT (GLUCOSE) Test Performed by Nursing Services 01/07/2021 18:43 EDT [facility] Blood CAPILLARY BLOOD / Unknown 01/07/2021 18:38 EDT 01/07/2021 18:43 EDT us Gela Borges MD POINT OF CARE TEST ORDERABLES Final Result Performing Organization Address City/[facility]/ZIP Co de Phone Number [facility] [address] [place] [address] * (ABNORMAL) POCT GLUCOSE, INTERFACED (01/07/2021 12:32 EDT) Glucose, POC 210(H) 70 - 100 mg/dL 01/07/2021 13:08 EDT [facility] HN LAB POC COMMENT (GLUCOSE) Test Performed by Nursing Services 01/07/2021 13:08 EDT [facility] Blood CAPILLARY BLOOD / Unknown 01/07/2021 12:32 EDT 01/07/2021 13:08 EDT us Tj Hitchcock MD POINT OF CARE TEST ORDERABLES Fi nal Result Performing Organization Address City/[facility]/ZIP Co de Phone Number [facility] [address] [place] [address] * (ABNORMAL) POCT GLUCOSE, INTERFACED (01/07/2021 8:06 EDT) Glucose, POC 198(H) 70 - 100 mg/dL 01/07/2021 12:33 EDT [facility] HN LAB POC COMMENT (GLUCOSE) Test Performed by Nursing Services 01/07/2021 12:33 EDT [facility] Blood CAPILLARY BLOOD / Unknown 01/07/2021 8:06 EDT 01/07/2021 12:33 EDT us Gela Borges MD POINT OF CARE TEST ORDERABLES Final Result Performing Organization Address City/[facility]/ZIP Co de Phone Number [facility] [address] [place] [address] * (ABNORMAL) POCT GLUCOSE, INTERFACED (01/07/2021 7:28 EDT) Glucose, POC 205(H) 70 - 100 mg/dL 01/07/2021 7:29 EDT [facility] HN LAB POC COMMENT (GLUCOSE) Test Performed by Nursing Services 01/07/2021 7:29 [facility] Blood CAPILLARY BLOOD / Unknown 01/07/2021 7:28 EDT 01/07/2021 7:29 EDT Gela Borges MD POINT OF CARE TEST ORDERABLES Final Result [facility] [address] [place] [address] * (ABNORMAL) COMPLETE BLOOD COUNT (01/07/2021 5:56 EDT) WBC 8.72 4.00 - 10.40 K/cmm 01/07/2021 6:07 [facility] RBC 3.14(L) 4.36 - 5.78 M/cmm 01/07/2021 6:07 [facility] Hemoglobin 9.5(L) 13.8 - 17.3 gm/dL 01/07/2021 6:07 [facility] HCT 28.9(L) 39.5 - 50.2 % 01/07/2021 6:07 [facility] MCV 92 81 - 95 fl 01/07/2021 6:07 [facility] MCH 30.3 27.6 - 33.0 pg 01/07/2021 6:07 [facility] MCHC 32.9 32.8 - 36.4 gm/dL 01/07/2021 6:07 [facility] RDW-CV 13.6 <14.2 % 01/07/2021 6:07 [facility] RDW-SD 45.5 <46.0 fl 01/07/2021 6:07 [facility] PLT 396(H) 141 - 377 K/cmm 01/07/2021 6:07 [facility] MPV 9.1(L) 9.5 - 12.7 fl 01/07/2021 6:07 [facility] Blood VENOUS BLOOD / Unknown Venipuncture / Unknown 01/07/2021 5:56 EDT 01/07/2021 6:01 EDT us Marciano Segovia MD HEMATOLOGY & PF4 ORDERABL ES Final Result [facility] [address] [place] [address] * (ABNORMAL) BASIC METABOLIC PANEL (BMP) (01/07/2021 5:56 EDT) Sodium 136 136 - 145 mmol/L 01/07/2021 7:00 EDT [facility] Potassium 4.7 3.5 - 5.0 mEq/L 01/07/2021 7:00 EDT [facility] Chloride 97 96 - 110 mEq/L 01/07/2021 7:00 EDT [facility] CO2 Total 29 22 - 32 mEq/L 01/07/2021 7:00 T [facility] Anion Gap 10 8 - 16 01/07/2021 7:00 [facility] Glucose 198(H) 70 - 100 mg/dL 01/07/2021 7:00 T [facility] Calcium 9.3 8.5 - 10.5 mg/dL 01/07/2021 7:00 [facility] BUN 20 10 - 26 mg/dL 01/07/2021 7:00 T [facility] Creatinine 0.61(L) 0.66 - 1.25 mg/dL 01/07/2021 7:00 T [facility] eGFR 109 >60 mL/min/1.7 3m2 01/07/2021 7:00 T [facility] Comment:eGFR calculated sarahi krishnan CKD-EPI equation for non- Americans. Multiply eGFR by 1.16 for patients. Blood VENOUS BLOOD / Unknown Venipuncture / Unknown 01/07/2021 5:56 EDT 01/07/2021 6:28 EDT us Marciano Segovia MD CHEMISTRY & BLOOD GAS ORD ERABLES Final Result [facility] [address] [place] [address] * (ABNORMAL) POCT GLUCOSE, INTERFACED (01/06/2021 21:13 EDT) Glucose, POC 178(H) 70 - 100 mg/dL 01/06/2021 21:15 EDT [facility] HN LAB POC COMMENT (GLUCOSE) Test Performed by Nursing Services 01/06/2021 21:15 EDT [facility] Blood CAPILLARY BLOOD / Unknown 01/06/2021 21:13 EDT 01/06/2021 21:15 EDT us Gela Borges MD POINT OF CARE TEST ORDERABLES Final Result Performing Organization Address [facility]/ZIP Co de Phone Number [facility] [address] [place] [address] * (ABNORMAL) POCT GLUCOSE, INTERFACED (01/06/2021 17:27 EDT) Glucose, POC 204(H) 70 - 100 mg/dL 01/06/2021 17:29 EDT [facility] HN LAB POC COMMENT (GLUCOSE) Test Performed by Nursing Services 01/06/2021 17:29 EDT [facility] Blood CAPILLARY BLOOD / Unknown 01/06/2021 17:27 EDT 01/06/2021 17:29 EDT us Gela Borges MD POINT OF CARE TEST ORDERABLES Final Result Performing Organization Address City/[facility]/ZIP Co de Phone Number [facility] [address] [place] [address] * (ABNORMAL) POCT GLUCOSE, INTERFACED (01/06/2021 12:30 EDT) Glucose, POC 111(H) 70 - 100 mg/dL 01/06/2021 12:34 EDT [facility] HN LAB POC COMMENT (GLUCOSE) Test Performed by Nursing Services 01/06/2021 12:34 EDT [facility] Blood CAPILLARY BLOOD / Unknown 01/06/2021 12:30 EDT 01/06/2021 12:34 EDT Gela Borges MD POINT OF CARE TEST ORDERABLES Final Result Performing Organization Address City/[facility]/ZIP Co de Phone Number [facility] [address] [place] [address] * (ABNORMAL) POCT GLUCOSE, INTERFACED (01/06/2021 8:27 EDT) Glucose, POC 142(H) 70 - 100 mg/dL 01/06/2021 8:35 EDT [facility] HN LAB POC COMMENT (GLUCOSE) Test Performed by Nursing Services 01/06/2021 8:35 EDT [facility] Blood CAPILLARY BLOOD / Unknown 01/06/2021 8:27 EDT 01/06/2021 8:35 EDT Gela Borges MD POINT OF CARE TEST ORDERABLES Final Result Performing Organization Address [facility] Co de Phone Number [facility] [address] [place] [address] * (ABNORMAL) COMPLETE BLOOD COUNT (01/06/2021 6:29 EDT) WBC 8.60 4.00 - 10.40 K/cmm 01/06/2021 6:51 EDT [facility] RBC 3.18(L) 4.36 - 5.78 M/cmm 01/06/2021 6:51 [facility] Hemoglobin 9.5(L) 13.8 - 17.3 gm/dL 01/06/2021 6:51 T [facility] HCT 29.4(L) 39.5 - 50.2 % 01/06/2021 6:51 [facility] MCV 93 81 - 95 fl 01/06/2021 6:51 [facility] MCH 29.9 27.6 - 33.0 pg 01/06/2021 6:51 [facility] MCHC 32.3(L) 32.8 - 36.4 gm/dL 01/06/2021 6:51 [facility] RDW-CV 13.5 <14.2 % 01/06/2021 6:51 [facility] RDW-SD 45.6 <46.0 fl 01/06/2021 6:51 [facility] PLT 394(H) 141 - 377 K/cmm 01/06/2021 6:51 [facility] MPV 9.2(L) 9.5 - 12.7 fl 01/06/2021 6:51 [facility] Blood VENOUS BLOOD / Unknown Venipuncture / Unknown 01/06/2021 6:29 EDT 01/06/2021 6:36 EDT us Marciano Segovia MD HEMATOLOGY & PF4 ORDERABL ES Final Result [facility] [address] [place] [address] * (ABNORMAL) BASIC METABOLIC PANEL (BMP) (01/06/2021 6:29 EDT) Sodium 135(L) 136 - 145 mmol/L 01/06/2021 7:19 [facility] Potassium 4.8 3.5 - 5.0 mEq/L 01/06/2021 7:19 [facility] Chloride 96 96 - 110 mEq/L 01/06/2021 7:19 [facility] CO2 Total 30 22 - 32 mEq/L 01/06/2021 7:19 [facility] Anion Gap 9 8 - 16 01/06/2021 7:19 [facility] Glucose 170(H) 70 - 100 mg/dL 01/06/2021 7:19 [facility] Calcium 9.2 8.5 - 10.5 mg/dL 01/06/2021 7:19 EDT [facility] BUN 20 10 - 26 mg/dL 01/06/2021 7:19 EDT [facility] Creatinine 0.58(L) 0.66 - 1.25 mg/dL 01/06/2021 7:19 EDT [facility] eGFR 112 >60 mL/min/1.7 3m2 01/06/2021 7:19 EDT [facility] Comment:eGFR calculated sarahi krishnan CKD-EPI equation for non- Americans. Multiply eGFR by 1.16 for patients. Blood VENOUS BLOOD / Unknown Venipuncture / Unknown 01/06/2021 6:29 EDT 01/06/2021 6:51 EDT us Marciano Segovia MD CHEMISTRY & BLOOD GAS ORD ERABLES Final Result Performing Organization Address City/[facility]/ZIP Co de Phone Number [facility] [address] [place] [address] * (ABNORMAL) POCT GLUCOSE, INTERFACED (01/05/2021 20:25 EDT) Glucose, POC 138(H) 70 - 100 mg/dL 01/05/2021 20:26 EDT [facility] HN LAB POC COMMENT (GLUCOSE) Test Performed by Nursing Services 01/05/2021 20:26 EDT [facility] Blood CAPILLARY BLOOD / Unknown 01/05/2021 20:25 EDT 01/05/2021 20:26 EDT us Gela Borges MD POINT OF CARE TEST ORDERABLES Final Result [facility] [address] [place] [address] * (ABNORMAL) POCT GLUCOSE, INTERFACED (01/05/2021 18:00 EDT) Glucose, POC 200(H) 70 - 100 mg/dL 01/05/2021 18:08 EDT [facility] HN LAB POC COMMENT (GLUCOSE) Test Performed by Nursing Services 01/05/2021 18:08 EDT [facility] Blood CAPILLARY BLOOD / Unknown 01/05/2021 18:00 EDT 01/05/2021 18:08 EDT us Gela Borges MD POINT OF CARE TEST ORDERABLES Final Result Performing Organization Address City/[facility]/ZIP Co de Phone Number [facility] [address] [place] [address] * (ABNORMAL) POCT GLUCOSE, INTERFACED (01/05/2021 12:35 EDT) Glucose, POC 172(H) 70 - 100 mg/dL 01/05/2021 12:41 EDT [facility] HN LAB POC COMMENT (GLUCOSE) Test Performed by Nursing Services 01/05/2021 12:41 EDT [facility] Blood CAPILLARY BLOOD / Unknown 01/05/2021 12:35 EDT 01/05/2021 12:41 EDT us Gela Borges MD POINT OF CARE TEST ORDERABLES Final Result Performing Organization Address City/[facility] Co de Phone Number [facility] [address] [place] [address] * ECG REPORT - SCANNED (01/05/2021 11:16 EDT) 01/05/2021 11:1 6 EDT us Scan 2 Fermenter Operator PROCEDURE/MINOR SURGICAL OR DERABLES Final Result * (ABNORMAL) POCT GLUCOSE, INTERFACED (01/05/2021 7:55 EDT) Glucose, POC 223(H) 70 - 100 mg/dL 01/05/2021 8:00 EDT [facility] HN LAB POC COMMENT (GLUCOSE) Test Performed by Nursing Services 01/05/2021 8:00 EDT [facility] Blood CAPILLARY BLOOD / Unknown 01/05/2021 7:55 EDT 01/05/2021 8:00 EDT us Gela Borges MD POINT OF CARE TEST ORDERABLES Final Result [facility] [address] [place] [address] * (ABNORMAL) COMPLETE BLOOD COUNT (01/05/2021 5:45 EDT) WBC 7.06 4.00 - 10.40 K/cmm 01/05/2021 6:16 EDT [facility] RBC 2.99(L) 4.36 - 5.78 M/cmm 01/05/2021 6:16 [facility] Hemoglobin 9.3(L) 13.8 - 17.3 gm/dL 01/05/2021 6:16 [facility] HCT 28.4(L) 39.5 - 50.2 % 01/05/2021 6:16 [facility] MCV 95 81 - 95 fl 01/05/2021 6:16 [facility] MCH 31.1 27.6 - 33.0 pg 01/05/2021 6:16 [facility] MCHC 32.7(L) 32.8 - 36.4 gm/dL 01/05/2021 6:16 [facility] RDW-CV 13.7 <14.2 % 01/05/2021 6:16 [facility] RDW-SD 46.7(H) <46.0 fl 01/05/2021 6:16 [facility] PLT 388(H) 141 - 377 K/cmm 01/05/2021 6:16 [facility] MPV 9.2(L) 9.5 - 12.7 fl 01/05/2021 6:16 [facility] Blood BLOOD SAMPLE TAKEN FROM CENTRAL LINE / Unknown Venipuncture / Unknown 01/05/2021 5:45 EDT 01/05/2021 6:00 EDT Marciano Segovia MD HEMATOLOGY & PF4 ORDERABL ES Final Result Performing Organization Address City/[facility]/ZIP Co de Phone Number [facility] [address] [place] [address] * (ABNORMAL) BASIC METABOLIC PANEL (BMP) (01/05/2021 5:45 EDT) Sodium 138 136 - 145 mmol/L 01/05/2021 6:34 EDT [facility] Potassium 4.7 3.5 - 5.0 mEq/L 01/05/2021 6:34 [facility] Chloride 98 96 - 110 mEq/L 01/05/2021 6:34 [facility] CO2 Total 32 22 - 32 mEq/L 01/05/2021 6:34 [facility] Anion Gap 8 8 - 16 01/05/2021 6:34 [facility] Glucose 260(H) 70 - 100 mg/dL 01/05/2021 6:34 [facility] Calcium 9.2 8.5 - 10.5 mg/dL 01/05/2021 6:34 [facility] BUN 18 10 - 26 mg/dL 01/05/2021 6:34 [facility] Creatinine 0.57(L) 0.66 - 1.25 mg/dL 01/05/2021 6:34 [facility] eGFR 112 >60 mL/min/1.7 3m2 01/05/2021 6:34 [facility] Comment:eGFR calculated sarahi krishnan CKD-EPI equation for non- Americans. Multiply eGFR by 1.16 for patients. Blood VENOUS BLOOD / Unknown Venipuncture / Unknown 01/05/2021 5:45 EDT 01/05/2021 6:01 EDT Marciano Segovia MD CHEMISTRY & BLOOD GAS ORD ERABLES Final Result [facility] [address] [place] [address] * (ABNORMAL) POCT GLUCOSE, INTERFACED (01/04/2021 21:11 EDT) Glucose, POC 223(H) 70 - 100 mg/dL 01/04/2021 21:12 EDT [facility] HN LAB POC COMMENT (GLUCOSE) Test Performed by Nursing Services 01/04/2021 21:12 EDT [facility] Blood CAPILLARY BLOOD / Unknown 01/04/2021 21:11 EDT 01/04/2021 21:12 EDT Gela Borges MD POINT OF CARE TEST ORDERABLES Final Result Performing Organization Address City/[facility]/ZIP Co de Phone Number [facility] [address] [place] [address] * (ABNORMAL) POCT GLUCOSE, INTERFACED (01/04/2021 18:25 EDT) Glucose, POC 168(H) 70 - 100 mg/dL 01/04/2021 18:26 EDT [facility] HN LAB POC COMMENT (GLUCOSE) Test Performed by Nursing Services 01/04/2021 18:26 EDT [facility] Blood CAPILLARY BLOOD / Unknown 01/04/2021 18:25 EDT 01/04/2021 18:26 EDT us Gela Borges MD POINT OF CARE TEST ORDERABLES Final Result [facility] [address] [place] [address] * (ABNORMAL) POCT GLUCOSE, INTERFACED (01/04/2021 11:05 EDT) Glucose, POC 210(H) 70 - 100 mg/dL 01/04/2021 11:06 EDT [facility] HN LAB POC COMMENT (GLUCOSE) Test Performed by Nursing Services 01/04/2021 11:06 EDT [facility] Blood CAPILLARY BLOOD / Unknown 01/04/2021 11:05 EDT 01/04/2021 11:06 EDT Gela Borges MD POINT OF CARE TEST ORDERABLES Final Result Performing Organization Address [facility]/ZIP Co de Phone Number [facility] [address] [place] [address] * (ABNORMAL) POCT GLUCOSE, INTERFACED (01/04/2021 7:59 EDT) Pathologist [facility] Glucose, POC 297(H) 70 - 100 mg/dL 01/04/2021 8:02 EDT [facility] HN LAB POC COMMENT (GLUCOSE) Test Performed by Nursing Services 01/04/2021 8:02 EDT [facility] Blood CAPILLARY BLOOD / Unknown 01/04/2021 7:59 EDT 01/04/2021 8:01 EDT Gela Borges MD POINT OF CARE TEST ORDERABLES Final Result Performing Organization Address City/[facility] Co de Phone Number [facility] [address] [place] [address] * (ABNORMAL) COMPLETE BLOOD COUNT (01/04/2021 6:35 EDT) [facility] WBC 12.41(H) 4.00 - 10.40 K/cmm 01/04/2021 7:04 T [facility] RBC 3.10(L) 4.36 - 5.78 M/cmm 01/04/2021 7:04 [facility] Hemoglobin 9.5(L) 13.8 - 17.3 gm/dL 01/04/2021 7:04 [facility] HCT 28.3(L) 39.5 - 50.2 % 01/04/2021 7:04 [facility] MCV 91 81 - 95 fl 01/04/2021 7:04 [facility] MCH 30.6 27.6 - 33.0 pg 01/04/2021 7:04 [facility] MCHC 33.6 32.8 - 36.4 gm/dL 01/04/2021 7:04 [facility] RDW-CV 13.7 <14.2 % 01/04/2021 7:04 [facility] RDW-SD 45.0 <46.0 fl 01/04/2021 7:04 [facility] PLT 407(H) 141 - 377 K/cmm 01/04/2021 7:04 [facility] MPV 9.3(L) 9.5 - 12.7 fl 01/04/2021 7:04 [facility] Blood BLOOD SAMPLE TAKEN FROM CENTRAL LINE / Unknown Venipuncture / Unknown 01/04/2021 6:35 EDT 01/04/2021 6:49 EDT us Marciano Segovia MD HEMATOLOGY & PF4 ORDERABL ES Final Result Performing Organization Address City/State/[facility] Co de Phone Number [facility] [address] [place] [id number] * (ABNORMAL) BASIC METABOLIC PANEL (BMP) (01/04/2021 6:35 EDT) Sodium 134(L) 136 - 145 mmol/L 01/04/2021 7:31 [facility] Potassium 4.8 3.5 - 5.0 mEq/L 01/04/2021 7:31 [facility] Chloride 97 96 - 110 mEq/L 01/04/2021 7:31 [facility] CO2 Total 27 22 - 32 mEq/L 01/04/2021 7:31 [facility] Anion Gap 10 8 - 16 01/04/2021 7:31 [facility] Glucose 322(H) 70 - 100 mg/dL 01/04/2021 7:31 [facility] Calcium 9.4 8.5 - 10.5 mg/dL 01/04/2021 7:31 [facility] BUN 19 10 - 26 mg/dL 01/04/2021 7:31 [facility] Creatinine 0.55(L) 0.66 - 1.25 mg/dL 01/04/2021 7:31 EDT [facility] eGFR 114 >60 mL/min/1.7 3m2 01/04/2021 7:31 EDT [facility] Comment:eGFR calculated sarahi krishnan CKD-EPI equation for non- Americans. Multiply eGFR by 1.16 for patients. Blood VENOUS BLOOD / Unknown Venipuncture / Unknown 01/04/2021 6:35 EDT 01/04/2021 6:40 EDT us Marciano Segovia MD CHEMISTRY & BLOOD GAS ORD ERABLES Final Result Performing Organization Address City/[facility]/ZIP Co de Phone Number [facility] [address] [place] [address] * (ABNORMAL) POCT GLUCOSE, INTERFACED (01/03/2021 20:33 EDT) Glucose, POC 230(H) 70 - 100 mg/dL 01/03/2021 20:35 EDT [facility] HN LAB POC COMMENT (GLUCOSE) Test Performed by Nursing Services 01/03/2021 20:35 EDT [facility] Blood CAPILLARY BLOOD / Unknown 01/03/2021 20:33 EDT 01/03/2021 20:34 EDT us Tj Hitchcock MD POINT OF CARE TEST ORDERABLES Fi nal Result [facility] [address] [place] [address] * (ABNORMAL) POCT GLUCOSE, INTERFACED (01/03/2021 18:05 EDT) Glucose, POC 163(H) 70 - 100 mg/dL 01/03/2021 18:06 EDT [facility] HN LAB POC COMMENT (GLUCOSE) Test Performed by Nursing Services 01/03/2021 18:06 EDT [facility] Blood CAPILLARY BLOOD / Unknown 01/03/2021 18:05 EDT 01/03/2021 18:06 EDT us Gela Borges MD POINT OF CARE TEST ORDERABLES Final Result Performing Organization Address City/[facility]/ZIP Co de Phone Number [facility] [address] [place] [address] * (ABNORMAL) POCT GLUCOSE, INTERFACED (01/03/2021 17:18 EDT) Glucose, POC 162(H) 70 - 100 mg/dL 01/03/2021 17:19 EDT [facility] HN LAB POC COMMENT (GLUCOSE) Test Performed by Nursing Services 01/03/2021 17:19 EDT [facility] Blood CAPILLARY BLOOD / Unknown 01/03/2021 17:18 EDT 01/03/2021 17:19 EDT us Tj Hitchcock MD POINT OF CARE TEST ORDERABLES Fi nal Result Performing Organization Address City/[facility]/ZIP Co de Phone Number [facility] [address] [place] [address] * (ABNORMAL) POCT GLUCOSE, INTERFACED (01/03/2021 16:04 EDT) Glucose, POC 209(H) 70 - 100 mg/dL 01/03/2021 16:05 EDT [facility] HN LAB POC COMMENT (GLUCOSE) Test Performed by Nursing Services 01/03/2021 16:05 EDT [facility] Blood CAPILLARY BLOOD / Unknown 01/03/2021 16:04 EDT 01/03/2021 16:05 EDT us Gela Borges MD POINT OF CARE TEST ORDERABLES Final Result Performing Organization Address City/[facility]/ZIP Co de Phone Number [facility] [address] [place] [address] * (ABNORMAL) POCT GLUCOSE, INTERFACED (01/03/2021 12:03 EDT) Glucose, POC 230(H) 70 - 100 mg/dL 01/03/2021 12:04 EDT [facility] HN LAB POC COMMENT (GLUCOSE) Test Performed by Nursing Services 01/03/2021 12:04 EDT [facility] Blood CAPILLARY BLOOD / Unknown 01/03/2021 12:03 EDT 01/03/2021 12:04 EDT Glea Borges MD POINT OF CARE TEST ORDERABLES Final Result Performing Organization Address City/[facility]/ZIP Co de Phone Number [facility] [address] [place] [address] * (ABNORMAL) POCT GLUCOSE, INTERFACED (01/03/2021 9:03 EDT) Glucose, POC 217(H) 70 - 100 mg/dL 01/03/2021 9:04 EDT [facility] HN LAB POC COMMENT (GLUCOSE) Test Performed by Nursing Services 01/03/2021 9:04 EDT [facility] Blood CAPILLARY BLOOD / Unknown 01/03/2021 9:03 EDT 01/03/2021 9:04 EDT Gela Borges MD POINT OF CARE TEST ORDERABLES Final Result Performing Organization Address [facility] Co de Phone Number [facility] [address] [place] [address] * (ABNORMAL) COMPLETE BLOOD COUNT (01/03/2021 5:09 EDT) WBC 9.46 4.00 - 10.40 K/cmm 01/03/2021 5:26 EDT [facility] RBC 3.14(L) 4.36 - 5.78 M/cmm 01/03/2021 5:26 EDT [facility] Hemoglobin 9.4(L) 13.8 - 17.3 gm/dL 01/03/2021 5:26 EDT [facility] HCT 28.6(L) 39.5 - 50.2 % 01/03/2021 5:26 EDT [facility] MCV 91 81 - 95 fl 01/03/2021 5:26 EDT [facility] MCH 29.9 27.6 - 33.0 pg 01/03/2021 5:26 EDT [facility] MCHC 32.9 32.8 - 36.4 gm/dL 01/03/2021 5:26 EDT [facility] RDW-CV 13.3 <14.2 % 01/03/2021 5:26 EDT [facility] RDW-SD 44.2 <46.0 fl 01/03/2021 5:26 EDT [facility] PLT 369 141 - 377 K/cmm 01/03/2021 5:26 T [facility] MPV 9.0(L) 9.5 - 12.7 fl 01/03/2021 5:26 EDT [facility] Blood VENOUS BLOOD / Unknown Venipuncture / Unknown 01/03/2021 5:09 EDT 01/03/2021 5:17 EDT us Marciano Segovia MD HEMATOLOGY & PF4 ORDERABL ES Final Result [facility] [address] [place] [address] * (ABNORMAL) BASIC METABOLIC PANEL (BMP) (01/03/2021 5:09 EDT) Sodium 133(L) 136 - 145 mmol/L 01/03/2021 5:50 EDT [facility] Potassium 4.7 3.5 - 5.0 mEq/L 01/03/2021 5:50 T [facility] Chloride 96 96 - 110 mEq/L 01/03/2021 5:50 T [facility] CO2 Total 30 22 - 32 mEq/L 01/03/2021 5:50 T [facility] Anion Gap 7(L) 8 - 16 01/03/2021 5:50 EDT [facility] Glucose 262(H) 70 - 100 mg/dL 01/03/2021 5:50 EDT [facility] Calcium 9.0 8.5 - 10.5 mg/dL 01/03/2021 5:50 EDT [facility] BUN 15 10 - 26 mg/dL 01/03/2021 5:50 EDT [facility] Creatinine 0.50(L) 0.66 - 1.25 mg/dL 01/03/2021 5:50 EDT [facility] eGFR 119 >60 mL/min/1.7 3m2 01/03/2021 5:50 EDT [facility] Comment:eGFR calculated sarahi krishnan CKD-EPI equation for non- Americans. Multiply eGFR by 1.16 for patients. Blood VENOUS BLOOD / Unknown Venipuncture / Unknown 01/03/2021 5:09 EDT 01/03/2021 5:17 EDT Marciano Segovia MD CHEMISTRY & BLOOD GAS ORD ERABLES Final Result Performing Organization Address City/[facility]/ZIP Co de Phone Number [facility] [address] [place] [address] * (ABNORMAL) POCT GLUCOSE, INTERFACED (01/02/2021 21:03 EDT) Glucose, POC 250(H) 70 - 100 mg/dL 01/02/2021 21:03 EDT [facility] HN LAB POC COMMENT (GLUCOSE) Test Performed by Nursing Services 01/02/2021 21:03 EDT [facility] Blood CAPILLARY BLOOD / Unknown 01/02/2021 21:03 EDT 01/02/2021 21:03 EDT us Gela Borges MD POINT OF CARE TEST ORDERABLES Final Result [facility] [address] [place] [address] * (ABNORMAL) POCT GLUCOSE, INTERFACED (01/02/2021 18:28 EDT) Glucose, POC 309(H) 70 - 100 mg/dL 01/02/2021 18:42 EDT [facility] HN LAB POC COMMENT (GLUCOSE) Test Performed by Nursing Services 01/02/2021 18:42 EDT [facility] Blood CAPILLARY BLOOD / Unknown 01/02/2021 18:28 EDT 01/02/2021 18:42 EDT Gela Borges MD POINT OF CARE TEST ORDERABLES Final Result Performing Organization Address City/[facility] Co de Phone Number [facility] [address] [place] [address] * (ABNORMAL) POCT GLUCOSE, INTERFACED (01/02/2021 12:41 EDT) Glucose, POC 206(H) 70 - 100 mg/dL 01/02/2021 12:46 EDT [facility] HN LAB POC COMMENT (GLUCOSE) Test Performed by Nursing Services 01/02/2021 12:46 EDT [facility] Blood CAPILLARY BLOOD / Unknown 01/02/2021 12:41 EDT 01/02/2021 12:46 EDT us Gela Borges MD POINT OF CARE TEST ORDERABLES Final Result Performing Organization Address [facility] de Phone Number [facility] [address] [place] [address] * (ABNORMAL) POCT GLUCOSE, INTERFACED (01/02/2021 8:13 EDT) Glucose, POC 187(H) 70 - 100 mg/dL 01/02/2021 8:23 EDT [facility] HN LAB POC COMMENT (GLUCOSE) Test Performed by Nursing Services 01/02/2021 8:23 EDT [facility] Blood CAPILLARY BLOOD / Unknown 01/02/2021 8:13 EDT 01/02/2021 8:23 EDT us Gela Borges MD POINT OF CARE TEST ORDERABLES Final Result [facility] [address] [place] [address] * (ABNORMAL) COMPLETE BLOOD COUNT (01/02/2021 5:29 EDT) WBC 9.36 4.00 - 10.40 K/cmm 01/02/2021 5:49 EDT [facility] RBC 3.09(L) 4.36 - 5.78 M/cmm 01/02/2021 5:49 EDT [facility] Hemoglobin 9.2(L) 13.8 - 17.3 gm/dL 01/02/2021 5:49 EDT [facility] HCT 28.1(L) 39.5 - 50.2 % 01/02/2021 5:49 T [facility] MCV 91 81 - 95 fl 01/02/2021 5:49 EDT [facility] MCH 29.8 27.6 - 33.0 pg 01/02/2021 5:49 EDT [facility] MCHC 32.7(L) 32.8 - 36.4 gm/dL 01/02/2021 5:49 [facility] RDW-CV 13.2 <14.2 % 01/02/2021 5:49 [facility] RDW-SD 43.8 <46.0 fl 01/02/2021 5:49 EDT [facility] PLT 354 141 - 377 K/cmm 01/02/2021 5:49 T [facility] MPV 9.1(L) 9.5 - 12.7 fl 01/02/2021 5:49 [facility] Blood BLOOD SAMPLE TAKEN FROM CENTRAL LINE / Unknown Venipuncture / Unknown 01/02/2021 5:29 EDT 01/02/2021 5:40 EDT us Marciano Segovia MD HEMATOLOGY & PF4 ORDERABL ES Final Result [facility] [address] [place] [address] * (ABNORMAL) BASIC METABOLIC PANEL (BMP) (01/02/2021 5:29 EDT) Sodium 134(L) 136 - 145 mmol/L 01/02/2021 6:12 [facility] Potassium 4.5 3.5 - 5.0 mEq/L 01/02/2021 6:12 [facility] Chloride 98 96 - 110 mEq/L 01/02/2021 6:12 [facility] CO2 Total 28 22 - 32 mEq/L 01/02/2021 6:12 [facility] Anion Gap 8 8 - 16 01/02/2021 6:12 [facility] Glucose 231(H) 70 - 100 mg/dL 01/02/2021 6:12 [facility] Calcium 8.7 8.5 - 10.5 mg/dL 01/02/2021 6:12 [facility] BUN 13 10 - 26 mg/dL 01/02/2021 6:12 [facility] Creatinine 0.52(L) 0.66 - 1.25 mg/dL 01/02/2021 6:12 [facility] eGFR 117 >60 mL/min/1.7 3m2 01/02/2021 6:12 [facility] Comment:eGFR calculated sarahi krishnan CKD-EPI equation for non- Americans. Multiply eGFR by 1.16 for patients. Blood VENOUS BLOOD / Unknown Venipuncture / Unknown 01/02/2021 5:29 EDT 01/02/2021 5:40 EDT us Maricano Segovia MD CHEMISTRY & BLOOD GAS ORD ERABLES Final Result [facility] [address] [place] [address] * (ABNORMAL) POCT GLUCOSE, INTERFACED (01/01/2021 21:57 EDT) Glucose, POC 316(H) 70 - 100 mg/dL 01/01/2021 21:58 EDT [facility] HN LAB POC COMMENT (GLUCOSE) Test Performed by Nursing Services 01/01/2021 21:58 EDT [facility] Blood CAPILLARY BLOOD / Unknown 01/01/2021 21:57 EDT 01/01/2021 21:57 EDT Gela Borges MD POINT OF CARE TEST ORDERABLES Final Result Performing Organization Address City/[facility]/ZIP Co de Phone Number [facility] [address] [place] [address] * (ABNORMAL) POCT GLUCOSE, INTERFACED (01/01/2021 17:41 EDT) Glucose, POC 273(H) 70 - 100 mg/dL 01/01/2021 17:42 EDT [facility] HN LAB POC COMMENT (GLUCOSE) Test Performed by Nursing Services 01/01/2021 17:42 EDT [facility] Blood CAPILLARY BLOOD / Unknown 01/01/2021 17:41 EDT 01/01/2021 17:42 EDT us Gela Borges MD POINT OF CARE TEST ORDERABLES Final Result Performing Organization Address [facility] Co de Phone Number [facility] [address] [place] [address] * (ABNORMAL) POCT GLUCOSE, INTERFACED (01/01/2021 12:28 EDT) Glucose, POC 217(H) 70 - 100 mg/dL 01/01/2021 12:33 EDT [facility] HN LAB POC COMMENT (GLUCOSE) Test Performed by Nursing Services 01/01/2021 12:33 EDT [facility] Blood CAPILLARY BLOOD / Unknown 01/01/2021 12:28 EDT 01/01/2021 12:33 EDT us Gela Borges MD POINT OF CARE TEST ORDERABLES Final Result Performing Organization Address City/[facility]/ZIP Co de Phone Number [facility] [address] [place] [address] * POCT GLUCOSE, INTERFACED (01/01/2021 7:50 EDT) Pathologist [facility] Glucose, POC 99 70 - 100 mg/dL 01/01/2021 7:55 EDT [facility] HN LAB POC COMMENT (GLUCOSE) Test Performed by Nursing Services 01/01/2021 7:55 EDT [facility] Blood CAPILLARY BLOOD / Unknown 01/01/2021 7:50 EDT 01/01/2021 7:55 EDT Gela Borges MD POINT OF CARE TEST ORDERABLES Final Result [facility] [address] [place] [address] * (ABNORMAL) COMPLETE BLOOD COUNT (01/01/2021 6:12 EDT) [facility] WBC 9.61 4.00 - 10.40 K/cmm 01/01/2021 6:27 [facility] RBC 3.17(L) 4.36 - 5.78 M/cmm 01/01/2021 6:27 [facility] Hemoglobin 9.6(L) 13.8 - 17.3 gm/dL 01/01/2021 6:27 [facility] HCT 28.9(L) 39.5 - 50.2 % 01/01/2021 6:27 [facility] MCV 91 81 - 95 fl 01/01/2021 6:27 [facility] MCH 30.3 27.6 - 33.0 pg 01/01/2021 6:27 [facility] MCHC 33.2 32.8 - 36.4 gm/dL 01/01/2021 6:27 [facility] RDW-CV 13.2 <14.2 % 01/01/2021 6:27 [facility] RDW-SD 43.6 <46.0 fl 01/01/2021 6:27 [facility] PLT 375 141 - 377 K/cmm 01/01/2021 6:27 EDT [facility] MPV 9.0(L) 9.5 - 12.7 fl 01/01/2021 6:27 EDT [facility] Blood BLOOD SAMPLE TAKEN FROM CENTRAL LINE / Unknown Venipuncture / Unknown 01/01/2021 6:12 EDT 01/01/2021 6:18 EDT Marciano Segovia MD HEMATOLOGY & PF4 ORDERABL ES Final Result [facility] [address] [place] [address] * (ABNORMAL) BASIC METABOLIC PANEL (BMP) (01/01/2021 6:12 EDT) Sodium 135(L) 136 - 145 mmol/L 01/01/2021 7:00 [facility] Potassium 4.3 3.5 - 5.0 mEq/L 01/01/2021 7:00 [facility] Chloride 98 96 - 110 mEq/L 01/01/2021 7:00 [facility] CO2 Total 29 22 - 32 mEq/L 01/01/2021 7:00 [facility] Anion Gap 8 8 - 16 01/01/2021 7:00 [facility] Glucose 126(H) 70 - 100 mg/dL 01/01/2021 7:00 [facility] Calcium 8.6 8.5 - 10.5 mg/dL 01/01/2021 7:00 [facility] BUN 11 10 - 26 mg/dL 01/01/2021 7:00 [facility] Creatinine 0.51(L) 0.66 - 1.25 mg/dL 01/01/2021 7:00 [facility] eGFR 118 >60 mL/min/1.7 3m2 01/01/2021 7:00 [facility] Comment:eGFR calculated usin g CKD-EPI equation for non- Americans. Multiply eGFR by 1.16 for patients. Blood VENOUS BLOOD / Unknown Venipuncture / Unknown 01/01/2021 6:12 EDT 01/01/2021 6:31 EDT us Marciano Segovia MD CHEMISTRY & BLOOD GAS ORD ERABLES Final Result Performing Organization Address City/[facility]/ZIP Co de Phone Number [facility] [address] [place] [address] * (ABNORMAL) POCT GLUCOSE, INTERFACED (12/31/2020 21:26 EDT) Glucose, POC 230(H) 70 - 100 mg/dL 12/31/2020 21:27 EDT [facility] HN LAB POC COMMENT (GLUCOSE) Test Performed by Nursing Services 12/31/2020 21:27 EDT [facility] Blood CAPILLARY BLOOD / Unknown 12/31/2020 21:26 EDT 12/31/2020 21:27 EDT us Gela Borges MD POINT OF CARE TEST ORDERABLES Final Result Performing Organization Address [facility] Co de Phone Number [facility] [address] [place] [address] * (ABNORMAL) POCT GLUCOSE, INTERFACED (12/31/2020 18:22 EDT) Glucose, POC 282(H) 70 - 100 mg/dL 12/31/2020 18:27 EDT [facility] HN LAB POC COMMENT (GLUCOSE) Test Performed by Nursing Services 12/31/2020 18:27 EDT [facility] Blood CAPILLARY BLOOD / Unknown 12/31/2020 18:22 EDT 12/31/2020 18:27 EDT us Gela Borges MD POINT OF CARE TEST ORDERABLES Final Result Performing Organization Address City/[facility]/ZIP Co de Phone Number [facility] [address] [place] [address] * INSERT PICC LINE (12/31/2020 14:41 EDT) Narrative Chago Leon RN - 12/31/2020 14:41 EDT Chago Leon RN ? 12/31/2020 14:41 Central Catheter Insertion First Catheter This Session ?dba manager: Patient Location: [id number] Preliminary Data: Insertion Date: 12/31/20 Insertion Time: 1423 First Wheel Installer: Chago Leon RN RN/MA Documenting Procedure: Dania Rosado RN Pre-procedure: Time Out / Final Moment Performed: Yes Hand Hygiene Immediately Prior To Procedure: Yes Site Disinfected-2% Chlorhex/70% Alcohol: Yes Procedure Site Completely Dry: Yes Entire Patient Draped in Sterile Fashion: Yes Pre-procedure Deviation: NONE Intra-procedure: Sterile Gloves Used: Yes Cap, Mask, and Sterile Gown - Operators: Yes Sterile Field Maintained: Yes Cap and Mask Worn - All Personnel: Yes Intra-Procedure Deviation: NONE Post-procedure: Sterile Dressing Applied - Sterile Technique: Yes Dressing Dated And Timed: Yes Post-procedure Deviation: NONE Needle Passes: VA RN Makes 2 Or Fewer Needle Passes: 2 or fewer passes Needle Passes Deviation: NONE ?Physician Documentation Pre-Procedure: Procedure To Be Performed: New central line placement Indication: Long-term therapy Line Priority: Routine Tip Confirmation: 3CG Consent Obtained: Yes The patient and/or family have been provided education/training to minimize the risk of central line-associated bloodstream infections. Central Line Type: Central Catheter Type: PICC PICC Type: Solo PICC Central Line Details: Line Location: Right;Basilic Final Tip Location: ??(CAJ with 3CG) Line Lumens (#): Single Central Line Size: 4 Fr Line Coating: Non-antimicrobial coated Vessel Size: ??(0.47cm) Vein Depth (cm): ??(1.26cm) Line Trim Length: 45 cm Line External Length: 1 cm Line Securement Device: Statlock device Responsible Service / IR Details: Responsible Service: CHANDNI CONLEY Lidocaine 1% - Route/Dose (cc's): Intradermal;1 Central Line Materials and Methods: Number of Attempts: 1 Number of Sites Attempted: 1 Number of Kits Used: 1 Location Device Used: Con;Ultrasound;3CG Central Line Operators: Number Of Operators: 1 First Wheel Installer's Name: Chago Leon RN First Wheel Installer's Title: Vascular indirect sales representative Unless otherwise noted, there were no complications, no blood loss and no cultures obtained. CHAGO LEON RN ?? 12/31/2020 ?? 14:41 Desiree Marcano DO IV THERAPY ORDERABLES Final Re sult * (ABNORMAL) POCT GLUCOSE, INTERFACED (12/31/2020 12:30 EDT) Glucose, POC 214(H) 70 - 100 mg/dL 12/31/2020 12:31 EDT [facility] HN LAB POC COMMENT (GLUCOSE) Test Performed by Nursing Services 12/31/2020 12:31 EDT [facility] Blood CAPILLARY BLOOD / Unknown 12/31/2020 12:30 EDT 12/31/2020 12:31 EDT Gela Borges MD POINT OF CARE TEST ORDERABLES Final Result Performing Organization Address City/[facility] Co de Phone Number [facility] [address] [place] [address] * (ABNORMAL) POCT GLUCOSE, INTERFACED (12/31/2020 8:56 EDT) Glucose, POC 165(H) 70 - 100 mg/dL 12/31/2020 8:57 EDT [facility] HN LAB POC COMMENT (GLUCOSE) Test Performed by Nursing Services 12/31/2020 8:57 EDT [facility] Blood CAPILLARY BLOOD / Unknown 12/31/2020 8:56 EDT 12/31/2020 8:57 EDT Gela Borges MD POINT OF CARE TEST ORDERABLES Final Result Performing Organization Address City/[facility]/ZIP Co de Phone Number [facility] [address] [place] [address] * (ABNORMAL) COMPLETE BLOOD COUNT (12/31/2020 6:46 EDT) WBC 8.45 4.00 - 10.40 K/cmm 12/31/2020 7:27 [facility] RBC 3.21(L) 4.36 - 5.78 M/cmm 12/31/2020 7:27 [facility] Hemoglobin 9.8(L) 13.8 - 17.3 gm/dL 12/31/2020 7:27 [facility] HCT 29.0(L) 39.5 - 50.2 % 12/31/2020 7:27 [facility] MCV 90 81 - 95 fl 12/31/2020 7:27 [facility] MCH 30.5 27.6 - 33.0 pg 12/31/2020 7:27 [facility] MCHC 33.8 32.8 - 36.4 gm/dL 12/31/2020 7:27 [facility] RDW-CV 13.2 <14.2 % 12/31/2020 7:27 [facility] RDW-SD 43.5 <46.0 fl 12/31/2020 7:27 [facility] PLT 315 141 - 377 K/cmm 12/31/2020 7:27 [facility] MPV 9.5 9.5 - 12.7 fl 12/31/2020 7:27 [facility] Blood VENOUS BLOOD / Unknown Venipuncture / Unknown 12/31/2020 6:46 EDT 12/31/2020 7:14 EDT us Marciano Segovia MD HEMATOLOGY & PF4 ORDERABL ES Final Result [facility] [address] [place] [address] * (ABNORMAL) BASIC METABOLIC PANEL (BMP) (12/31/2020 6:46 EDT) Pathologist [facility] Sodium 136 136 - 145 mmol/L 12/31/2020 7:49 [facility] Potassium 4.3 3.5 - 5.0 mEq/L 12/31/2020 7:49 [facility] Chloride 99 96 - 110 mEq/L 12/31/2020 7:49 [facility] CO2 Total 29 22 - 32 mEq/L 12/31/2020 7:49 [facility] Anion Gap 8 8 - 16 12/31/2020 7:49 [facility] Glucose 204(H) 70 - 100 mg/dL 12/31/2020 7:49 [facility] Calcium 8.3(L) 8.5 - 10.5 mg/dL 12/31/2020 7:49 [facility] BUN 11 10 - 26 mg/dL 12/31/2020 7:49 [facility] Creatinine 0.50(L) 0.66 - 1.25 mg/dL 12/31/2020 7:49 [facility] eGFR 119 >60 mL/min/1.7 3m2 12/31/2020 7:49 [facility] Comment:eGFR calculated sarahi krishnan CKD-EPI equation for non- Americans. Multiply eGFR by 1.16 for patients. Blood VENOUS BLOOD / Unknown Venipuncture / Unknown 12/31/2020 6:46 EDT 12/31/2020 7:21 EDT us Marciano Segovia MD CHEMISTRY & BLOOD GAS ORD ERABLES Final Result [facility] [address] [place] [address] * (ABNORMAL) POCT GLUCOSE, INTERFACED (12/31/2020 0:11 EDT) Glucose, POC 239(H) 70 - 100 mg/dL 12/31/2020 0:13 [facility] HN LAB POC COMMENT (GLUCOSE) Test Performed by Nursing Services 12/31/2020 0:13 [facility] Blood CAPILLARY BLOOD / Unknown 12/31/2020 0:11 EDT 12/31/2020 0:12 EDT us Stanley Tillman MD POINT OF CARE TEST O RDERABLES Final Result Performing Organization Address City/[facility]/ZIP Co de Phone Number [facility] [address] [place] [address] * (ABNORMAL) POCT GLUCOSE, INTERFACED (12/30/2020 20:51 EDT) Glucose, POC 321(H) 70 - 100 mg/dL 12/30/2020 21:09 EDT [facility] HN LAB POC COMMENT (GLUCOSE) Test Performed by Nursing Services 12/30/2020 21:09 EDT [facility] Blood CAPILLARY BLOOD / Unknown 12/30/2020 20:51 EDT 12/30/2020 21:09 EDT us Gela Boregs MD POINT OF CARE TEST ORDERABLES Final Result Performing Organization Address [facility] Co de Phone Number [facility] [address] [place] [address] * (ABNORMAL) POCT GLUCOSE, INTERFACED (12/30/2020 18:24 EDT) Glucose, POC 288(H) 70 - 100 mg/dL 12/30/2020 18:28 EDT [facility] HN LAB POC COMMENT (GLUCOSE) Test Performed by Nursing Services 12/30/2020 18:28 EDT [facility] Blood CAPILLARY BLOOD / Unknown 12/30/2020 18:24 EDT 12/30/2020 18:28 EDT us Gela Borges MD POINT OF CARE TEST ORDERABLES Final Result Performing Organization Address City/[facility]/ZIP Co de Phone Number [facility] [address] [place] [address] * (ABNORMAL) POCT GLUCOSE, INTERFACED (12/30/2020 12:28 EDT) Glucose, POC 240(H) 70 - 100 mg/dL 12/30/2020 12:31 EDT [facility] HN LAB POC COMMENT (GLUCOSE) Test Performed by Nursing Services 12/30/2020 12:31 EDT [facility] Blood CAPILLARY BLOOD / Unknown 12/30/2020 12:28 EDT 12/30/2020 12:31 EDT Gela Borges MD POINT OF CARE TEST ORDERABLES Final Result Performing Organization Address [facility] Co de Phone Number [facility] [address] [place] [address] * (ABNORMAL) POCT GLUCOSE, INTERFACED (12/30/2020 8:05 EDT) Glucose, POC 224(H) 70 - 100 mg/dL 12/30/2020 8:13 EDT [facility] HN LAB POC COMMENT (GLUCOSE) Test Performed by Nursing Services 12/30/2020 8:13 EDT [facility] Blood CAPILLARY BLOOD / Unknown 12/30/2020 8:05 EDT 12/30/2020 8:13 EDT Gela Borges MD POINT OF CARE TEST ORDERABLES Final Result Performing Organization Address [facility] de Phone Number [facility] [address] [place] [id number] * (ABNORMAL) COMPLETE BLOOD COUNT (12/30/2020 6:19 EDT) WBC 11.80(H) 4.00 - 10.40 K/cmm 12/30/2020 7:31 EDT [facility] RBC 2.99(L) 4.36 - 5.78 M/cmm 12/30/2020 7:31 EDT [facility] Hemoglobin 9.4(L) 13.8 - 17.3 gm/dL 12/30/2020 7:31 EDT [facility] HCT 27.4(L) 39.5 - 50.2 % 12/30/2020 7:31 [facility] MCV 92 81 - 95 fl 12/30/2020 7:31 [facility] MCH 31.4 27.6 - 33.0 pg 12/30/2020 7:31 [facility] MCHC 34.3 32.8 - 36.4 gm/dL 12/30/2020 7:31 [facility] RDW-CV 13.4 <14.2 % 12/30/2020 7:31 [facility] RDW-SD 45.1 <46.0 fl 12/30/2020 7:31 [facility] PLT 333 141 - 377 K/cmm 12/30/2020 7:31 [facility] MPV 9.6 9.5 - 12.7 fl 12/30/2020 7:31 [facility] Blood VENOUS BLOOD / Unknown Venipuncture / Unknown 12/30/2020 6:19 EDT 12/30/2020 7:22 EDT us Marciano Segovia MD HEMATOLOGY & PF4 ORDERABL ES Final Result [facility] [address] [place] [address] * (ABNORMAL) BASIC METABOLIC PANEL (BMP) (12/30/2020 6:19 EDT) Sodium 134(L) 136 - 145 mmol/L 12/30/2020 8:02 [facility] Potassium 4.7 3.5 - 5.0 mEq/L 12/30/2020 8:02 [facility] Chloride 99 96 - 110 mEq/L 12/30/2020 8:02 [facility] CO2 Total 28 22 - 32 mEq/L 12/30/2020 8:02 [facility] Anion Gap 7(L) 8 - 16 12/30/2020 8:02 [facility] Glucose 260(H) 70 - 100 mg/dL 12/30/2020 8:02 EDT [facility] Calcium 8.1(L) 8.5 - 10.5 mg/dL 12/30/2020 8:02 EDT [facility] BUN 13 10 - 26 mg/dL 12/30/2020 8:02 EDT [facility] Creatinine 0.74 0.66 - 1.25 mg/dL 12/30/2020 8:02 EDT [facility] eGFR 101 >60 mL/min/1.7 3m2 12/30/2020 8:02 EDT [facility] Comment:eGFR calculated sarahi krishnan CKD-EPI equation for non- Americans. Multiply eGFR by 1.16 for patients. Blood VENOUS BLOOD / Unknown Venipuncture / Unknown 12/30/2020 6:19 EDT 12/30/2020 7:34 EDT Marciano Segovia MD CHEMISTRY & BLOOD GAS ORD ERABLES Final Result [facility] [address] [place] [address] * POCT GLUCOSE, INTERFACED (12/29/2020 21:01 EDT) Glucose, POC 96 70 - 100 mg/dL 12/29/2020 21:02 EDT [facility] HN LAB POC COMMENT (GLUCOSE) Test Performed by Nursing Services 12/29/2020 21:02 EDT [facility] Blood CAPILLARY BLOOD / Unknown 12/29/2020 21:01 EDT 12/29/2020 21:02 EDT us Bar Harper DO POINT OF CARE TEST ORDERABLES Final Result [facility] [address] [place] [address] * SURGICAL PATHOLOGY (12/29/2020 19:29 EDT) Note to Patient The following pathology results have been interpreted by your pathologist and may be available to you before your health provider has had the opportunity to review them. Please allow time for your provider to receive these results and explore management options, if applicable. 01/10/2021 14:26 [facility] Final Diagnosis A. 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 Ulcerated skin and soft tissue near prior scar. Gross only. 01/10/2021 14:26 [facility] Attestation By the signature below, the attending physician certifies that they have 1) personally conducted a gross and/or microscopic examination of the described specimen(s), and/or personally interpreted the results of laboratory testing of the described specimen(s), and 2) personally rendered or confirmed the above diagnosis. 01/10/2021 14:26 [facility] at 1426 Clinical History 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 (HCC-CMS) (HCC) 01/10/2021 14:26 [facility] Gross Description A. Received fresh labelled with proper patient identification (initials D, S) and right leg is a right bymet-qzi-kzul amputation comprised of leg (22.0 cm proximal to distal by 8.6 cm anterior to posterior by 6.6 cm medial to lateral) with attached foot (17.0 cm proximal to distal by 9.5 cm medial to lateral by 6.5 cm dorsal to plantar). All 5 toes are absent. A well-healed, semi circular scar (9.5 cm in length) is present on the dorsal aspect of the foot. A 1.3 x 1.0 cm pink-flor ulcer is present on the lateral most aspect of the scar. An additional well-circumscribe d pink-flor to white ulcer (3.2 x 2.5 cm) is present on the lateral aspect of the plantar surface of the foot. The ulcer extends to a maximum depth of 0.7 cm. The remainder of the specimen is covered by pink-flor, unremarkable skin. Extending from the proximal margin is a segment of tibia (2.5 cm in length by 2.6 cm in diameter) and a segment of fibula (3.7 cm in length by 1.3 cm in diameter). Both have smooth, grossly viable resection margins. Sectioning of the anterior and posterior tibial vessels revealed patent, unremarkable lumens. The specimen is submitted for gross examination only. No sections submitted. ANTONIO SPARROW([facility]) 12/30/2020 13:53 01/10/2021 14:26 [facility] Performing Lab [facility] 01/10/2021 14:26 [facility] Scanned Images 01/10/2021 14:26 [facility] Tissue TRAUMATIC AMPUTATION OF UPPER LIMB / Unknown 12/29/2020 19:29 EDT 12/29/2020 21:44 EDT us Edson Arzate MD PATHOLOGY ORDERABLES Sobia l Result Performing Organization Address City/[facility]/ZIP Co de Phone Number [facility] [address] [place] [address] * POCT GLUCOSE, INTERFACED (12/29/2020 18:28 EDT) Glucose, POC 83 70 - 100 mg/dL 12/29/2020 18:29 EDT [facility] HN LAB POC COMMENT (GLUCOSE) Test Performed by Nursing Services 12/29/2020 18:29 EDT [facility] Blood CAPILLARY BLOOD / Unknown 12/29/2020 18:28 EDT 12/29/2020 18:29 EDT us Gela Borges MD POINT OF CARE TEST ORDERABLES Final Result [facility] [address] [place] [address] * POCT GLUCOSE, INTERFACED (12/29/2020 17:02 EDT) Glucose, POC 93 70 - 100 mg/dL 12/30/2020 5:48 EDT [facility] HN LAB POC COMMENT (GLUCOSE) Test Performed by Nursing Services 12/30/2020 5:48 EDT [facility] Blood CAPILLARY BLOOD / Unknown 12/29/2020 17:02 EDT 12/30/2020 5:48 EDT us Stanley Tillman MD POINT OF CARE TEST O RDERABLES Final Result Performing Organization Address City/[facility]/ZIP Co de Phone Number [facility] [address] [place] [address] * POCT GLUCOSE, INTERFACED (12/29/2020 14:38 EDT) Glucose, POC 90 70 - 100 mg/dL 12/29/2020 14:52 EDT [facility] HN LAB POC COMMENT (GLUCOSE) Test Performed by Nursing Services 12/29/2020 14:52 EDT [facility] Blood CAPILLARY BLOOD / Unknown 12/29/2020 14:38 EDT 12/29/2020 14:52 EDT us Gilda Black MD POINT OF CARE TEST ORDERABLES Fi nal Result Performing Organization Address City/[facility] Co de Phone Number [facility] [address] [place] [address] * MR HIP W WO CONTRAST LEFT (12/29/2020 12:16 EDT) Anatomical Region Laterality Modality Lower Extremities Left Magnetic Reson ance 12/29/2020 16:5 3 EDT Addenda Addendum by Edson Villeda MD on 01/21/2021 17:47 EST Addendum: FINDINGS: Left (not right) Hip Joint: IMPRESSION LEFT (not right) HIP MRI: The remainder the report is unchanged. Narrative 12/29/2020 16:53 EDT EXAM: MR HIP W WO CONTRAST LEFT 12/29/2020 11:00 AM TECHNIQUE: MR HIP W WO CONTRAST LEFT SIGNS AND SYMPTOMS: Hip pain, soft tissue inflammation suspected, nondiagnostic xray. COMPARISON: CT left hip 12/23/2020. Left hip radiographs 12/22/2020. FINDINGS: Right Hip Joint: Bones and Alignment: Severe left hip osteoarthrosis with obliteration of the joint space, degenerative subchondral cystic change, and exuberant osteophytosis. There is an indistinct band-shaped area of altered signal and enhancement traversing the femoral neck and extending to the lesser trochanter (for example coronal #12). 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 Cartilage: Diffuse thinning with large areas of completely denuded of cartilage involving the superior aspect of the femoral head and acetabular roof. Acetabular labrum: Severe degenerative tearing of the acetabular labrum. Joint space and capsule: No sizable left hip joint effusion. There is capsular and pericapsular edema and enhancement involving the left hip. There are a few osseous and calcified chondral intra-articular bodies within the left hip joint. Muscles and Tendons: Feathery pattern of muscle edema with areas of mild enhancement involving the adductor musculature, visualized proximal portion of the vastus musculature and the gluteus medius and minimus muscles about the left hip. Corresponding well with the comparison CT, there is an elongated fatty lesion in the rectus femoris with internal foci of calcification, which likely represents sequela of prior muscle injury or an intramuscular fatty lesion such as a benign lipoma variant. No abnormal nodular enhancing components demonstrated within this lesion. Visualized musculature otherwise shows varying degrees of mostly mild to moderate fatty atrophy. Bursae: Findings of bursitis with small volume fluid distending the trochanteric bursa. Bony Pelvis and Contralateral Left Hip: Evaluation of the bony pelvis on wide field of view coronal images demonstrates mild degenerative changes at the pubic symphysis and moderate degenerative changes at both SI joints. There is moderate right hip joint osteoarthrosis with likely degenerative tearing of the labrum. No right hip joint effusion demonstrated. There are mild findings of right trochanteric bursitis. Soft Tissues: No significant abnormalities in the intrapelvic soft tissues. There is diffuse subcutaneous edema overlying the bilateral hips without significant enhancement. No drainable fluid collection. IMPRESSION RIGHT HIP MRI: 1. ??Feathery pattern of muscle edema with [...] fracture in the setting of severe osteopenia. Please correlate. 3. ??Severe left hip joint osteoarthrosis with extensive degenerative tearing of the acetabular labrum. 4. ??Trochanteric bursitis with small volume fluid distending the right trochanteric bursa. 5. ??Moderate right hip joint osteoarthrosis and mild right trochanteric bursitis demonstrated on the wide [id number] coronal images. I have personally reviewed the images and the above interpretation and agree with the findings. Procedure Note Edson Villeda MD - 12/29/2020 EXAM: MR HIP W WO CONTRAST LEFT 12/29/2020 11:00 AM TECHNIQUE: MR HIP W WO CONTRAST LEFT SIGNS AND SYMPTOMS: Hip pain, soft tissue inflammation suspected,nondiagnostic xray. COMPARISON: CT left hip 12/23/2020. Left hip radiographs 12/22/2020. FINDINGS: Right Hip Joint: Bones and Alignment: Severe left hip osteoarthrosis with obliteration ofthe joint space, degenerative subchondral cystic change, and exuberantosteophytosis. There is an indistinct band-shaped area of altered signaland enhancement traversing the femoral neck and extending to the lessertrochanter (for example coronal #12). 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 Cartilage: Diffuse thinning with large areas of completely denuded ofcartilage involving the superior aspect of the femoral head and acetabularroof. Acetabular labrum: Severe degenerative tearing of the acetabular labrum. Joint space and capsule: No sizable left hip joint effusion. There iscapsular and pericapsular edema and enhancement involving the left hip.There are a few osseous and calcified chondral intra-articular bodieswithin the left hip joint. Muscles and Tendons: Feathery pattern of muscle edema with areas of mild enhancement involvingthe adductor musculature, visualized proximal portion of the vastusmusculature and the gluteus medius and minimus muscles about the left hip.Corresponding well with the comparison CT, there is an elongated fattylesion in the rectus femoris with internal foci of calcification, whichlikely represents sequela of prior muscle injury or an intramuscular fattylesion such as a benign lipoma variant. No abnormal nodular enhancingcomponents demonstrated within this lesion. Visualized musculature otherwise shows varying degrees of mostly mild tomoderate fatty atrophy. Bursae: Findings of bursitis with small volume fluid distending thetrochanteric bursa. Bony Pelvis and Contralateral Left Hip: Evaluation of the bony pelvis onwide field of view coronal images demonstrates mild degenerative changesat the pubic symphysis and moderate degenerative changes at both SIjoints. There is moderate right hip joint osteoarthrosis with likelydegenerative tearing of the labrum. No right hip joint effusiondemonstrated. There are mild findings of right trochanteric bursitis. Soft Tissues: No significant abnormalities in the intrapelvic softtissues. There is diffuse subcutaneous edema overlying the bilateral hipswithout significant enhancement. No drainable fluid collection. IMPRESSION RIGHT HIP MRI: 1. Feathery pattern of muscle edema with areas of mild enhancementinvolving the adductor musculature, visualized portions of the proximalvastus musculature, and gluteus medius and minimus muscles about theevaluated left hip. Imaging features are nonspecific and can be seen withmuscle injury, inflammation, or diabetic muscle ischemia. Infectiousmyositis can be considered in the appropriate clinical context. 2. Indistinct band-shaped area of altered signal and enhancementtraversing the femoral neck and extending to the lesser trochanterconcerning for stress reaction or impending insufficiency fracture in thesetting of severe osteopenia. Please correlate. 3. Severe left hip joint osteoarthrosis with extensive degenerativetearing of the acetabular labrum. 4. Trochanteric bursitis with small volume fluid distending the righttrochanteric bursa. 5. Moderate right hip joint osteoarthrosis and mild right trochantericbursitis demonstrated on the wide [id number] coronal images. I have personally reviewed the images and the above interpretation andagree with the findings. Js Meza MD Kelsie MRI ORDERABLES Edited Result - Final * (ABNORMAL) POCT GLUCOSE, INTERFACED (12/29/2020 9:15 EDT) Glucose, POC 115(H) 70 - 100 mg/dL 12/29/2020 9:20 EDT [facility] HN LAB POC COMMENT (GLUCOSE) Test Performed by Nursing Services 12/29/2020 9:20 EDT [facility] Blood CAPILLARY BLOOD / Unknown 12/29/2020 9:15 EDT 12/29/2020 9:20 EDT Gilda Black MD POINT OF CARE TEST ORDERABLES Fi nal Result [facility] [address] [place] [address] * POC US ANESTHESIA NERVE BLOCK POPLITEAL FOSSA (12/29/2020 8:04 EDT) Narrative 12/29/2020 8:04 EDT This is a non-reportable exam. Sharmin Arora DO [facility] [place] POC ORDERABLES Final Result * POC US ANESTHESIA NERVE BLOCK OTHER (12/29/2020 8:03 EDT) Narrative 12/29/2020 8:03 EDT This is a non-reportable exam. Adam Santiago MD [facility] POC ORDERABLES Fin al Result * (ABNORMAL) COMPLETE BLOOD COUNT (12/29/2020 7:28 EDT) WBC 8.65 4.00 - 10.40 K/cmm 12/29/2020 8:01 EDT [facility] RBC 3.64(L) 4.36 - 5.78 M/cmm 12/29/2020 8:01 T [facility] Hemoglobin 10.8(L) 13.8 - 17.3 gm/dL 12/29/2020 8:01 T [facility] HCT 32.3(L) 39.5 - 50.2 % 12/29/2020 8:01 [facility] MCV 89 81 - 95 fl 12/29/2020 8:01 T [facility] MCH 29.7 27.6 - 33.0 pg 12/29/2020 8:[facility] MCHC 33.4 32.8 - 36.4 gm/dL 12/29/2020 8:01 [facility] RDW-CV 13.4 <14.2 % 12/29/2020 8:01 [facility] RDW-SD 43.7 <46.0 fl 12/29/2020 8:01 [facility] PLT 319 141 - 377 K/cmm 12/29/2020 8:01 [facility] MPV 9.3(L) 9.5 - 12.7 fl 12/29/2020 8:01 [facility] Blood VENOUS BLOOD / Unknown Venipuncture / Unknown 12/29/2020 7:28 EDT 12/29/2020 7:53 EDT us Marciano Segovia MD HEMATOLOGY & PF4 ORDERABL ES Final Result [facility] [address] [place] [address] * (ABNORMAL) BASIC METABOLIC PANEL (BMP) (12/29/2020 7:28 EDT) Sodium 136 136 - 145 mmol/L 12/29/2020 8:30 [facility] Potassium 4.0 3.5 - 5.0 mEq/L 12/29/2020 8:30 [facility] Chloride 100 96 - 110 mEq/L 12/29/2020 8:30 [facility] CO2 Total 29 22 - 32 mEq/L 12/29/2020 8:30 [facility] Anion Gap 7(L) 8 - 16 12/29/2020 8:30 [facility] Glucose 130(H) 70 - 100 mg/dL 12/29/2020 8:30 [facility] Calcium 8.3(L) 8.5 - 10.5 mg/dL 12/29/2020 8:30 EDT [facility] BUN 7(L) 10 - 26 mg/dL 12/29/2020 8:30 EDT [facility] Creatinine 0.53(L) 0.66 - 1.25 mg/dL 12/29/2020 8:30 EDT [facility] eGFR 116 >60 mL/min/1.7 3m2 12/29/2020 8:30 EDT [facility] Comment:eGFR calculated sarahi krishnan CKD-EPI equation for non- Americans. Multiply eGFR by 1.16 for patients. Blood VENOUS BLOOD / Unknown Venipuncture / Unknown 12/29/2020 7:28 EDT 12/29/2020 7:44 EDT Marciano Segovia MD CHEMISTRY & BLOOD GAS ORD ERABLES Final Result Performing Organization Address City/[facility]/ZIP Co de Phone Number [facility] [address] [place] [address] * (ABNORMAL) POCT GLUCOSE, INTERFACED (12/29/2020 6:03 EDT) Glucose, POC 128(H) 70 - 100 mg/dL 12/29/2020 6:07 EDT [facility] HN LAB POC COMMENT (GLUCOSE) Test Performed by Nursing Services 12/29/2020 6:07 EDT [facility] Blood CAPILLARY BLOOD / Unknown 12/29/2020 6:03 EDT 12/29/2020 6:07 EDT us Gela Borges MD POINT OF CARE TEST ORDERABLES Final Result [facility] [address] [place] [address] * (ABNORMAL) POCT GLUCOSE, INTERFACED (12/29/2020 0:01 EDT) Glucose, POC 215(H) 70 - 100 mg/dL 12/29/2020 0:28 EDT [facility] HN LAB POC COMMENT (GLUCOSE) Test Performed by Nursing Services 12/29/2020 0:28 EDT [facility] Blood CAPILLARY BLOOD / Unknown 12/29/2020 0:01 EDT 12/29/2020 0:28 EDT Gela Borges MD POINT OF CARE TEST ORDERABLES Final Result [facility] [address] [place] [address] * (ABNORMAL) POCT GLUCOSE, INTERFACED (12/28/2020 21:21 EDT) Glucose, POC 174(H) 70 - 100 mg/dL 12/28/2020 21:22 EDT [facility] HN LAB POC COMMENT (GLUCOSE) Test Performed by Nursing Services 12/28/2020 21:22 EDT [facility] Blood CAPILLARY BLOOD / Unknown 12/28/2020 21:21 EDT 12/28/2020 21:22 EDT Gilda Black MD POINT OF CARE TEST ORDERABLES Fi nal Result Performing Organization Address City/[facility]/ZIP Co de Phone Number [facility] [address] [place] [address] * (ABNORMAL) POCT GLUCOSE, INTERFACED (12/28/2020 18:11 EDT) Glucose, POC 230(H) 70 - 100 mg/dL 12/28/2020 18:16 EDT [facility] HN LAB POC COMMENT (GLUCOSE) Test Performed by Nursing Services 12/28/2020 18:16 EDT [facility] Blood CAPILLARY BLOOD / Unknown 12/28/2020 18:11 EDT 12/28/2020 18:16 EDT Gilda Black MD POINT OF CARE TEST ORDERABLES Fi nal Result Performing Organization Address City/[facility]/ZIP Co de Phone Number [facility] [address] [place] [address] * COVID-19 TEST [facility] PCR (12/28/2020 14:50 EDT) Swab ENTIRE NASOPHARYNX / Unknown Swab / Unknown 12/28/2020 14:50 EDT 12/28/2020 15:01 EDT Js Meza MD MICROBIOLOGY GENERAL ORDERABLE S Final Result Performing Organization Address [facility] Co de Phone Number [facility] [address] [place] [address] * COVID-19 TESTING (12/28/2020 14:50 EDT) COVID-19 rt-PCR Result Negative Negative 12/28/2020 18:35 EDT [facility] Comment: This test has not been FDA cleared or approved. This test has been authorized by FDA under an EUA for use by authorized laboratories. This test has been authorized only for detection of nucleic acid from 2019-nCoV, not for any other viruses or pathogens. This test is only authorized for the duration of the declaration that circumstances exist justifying the authorization of emergency use of in vitro diagnostic tests for detection and/or diagnosis of 2019-nCoV under section 564(b)(1) of Act, 21 U.S.C ?? 360bbb-3(b) (1), unless the authorization is terminated or revoked sooner. Negative results do not preclude 2019-nCoV infection and should not be used as the sole basis for treatment or other patient management decisions. Negative results must be combined with clinical observations, patient history, and epidemiological information. Performed on the [employer] Fusion instrument Performing Lab [place] [facility] Lab 12/28/2020 18:35 EDT [facility] Swab ENTIRE NASOPHARYNX / Unknown Swab / Unknown 12/28/2020 14:50 EDT 12/28/2020 15:01 EDT us Js Meza MD MICROBIOLOGY - GENERAL ORDERABLE S Final Result Performing Organization Address [facility] Co de Phone Number [facility] [address] [place] [address] * (ABNORMAL) PROTIME (12/28/2020 14:02 EDT) I.N.R. 1.3(H) 0.9 - 1.1 Ratio 12/28/2020 14:29 EDT [facility] Pro Time 14.9(H) 10.4 - 12.6 secs 12/28/2020 14:29 EDT [facility] Blood VENOUS BLOOD / Unknown Venipuncture / Unknown 12/28/2020 14:02 EDT 12/28/2020 14:08 EDT Narrative [facility] - 12/28/2020 14:29 EDT Moderate Intensity Coumadin INR = 2.0-3.0 Adjustments in anticoagulant therapy dose should be based on the INR and NOT on the Protime. us Js Meza MD HEMATOLOGY & PF4 ORDERABLES Sobia l Result Performing Organization Address [facility] Co de Phone Number [facility] [address] [place] [address] * PTT (12/28/2020 14:02 EDT) Pathologist [facility] PTT 37 26 - 37 secs 12/28/2020 14:29 EDT [facility] Blood VENOUS BLOOD / Unknown Venipuncture / Unknown 12/28/2020 14:02 EDT 12/28/2020 14:08 EDT us Js Meza MD HEMATOLOGY & PF4 ORDERABLES Sobia l Result [facility] [address] [place] [address] * TYPE AND SCREEN (12/28/2020 14:02 EDT) ABO A 12/28/2020 15:10 EDT [facility] Rh Factor Positive 12/28/2020 15:10 EDT [facility] Antibody Screen Negative 12/28/2020 15:10 EDT [facility] Specimen Expires: 12/31/2020 @ 23:59 12/28/2020 15:10 EDT [facility] Blood VENOUS BLOOD / Unknown Venipuncture / Unknown 12/28/2020 14:02 EDT 12/28/2020 14:13 EDT us Js Meza MD BLOOD BANK TESTS Edited Result - Final Performing Organization Address City/[facility]/ZIP Co de Phone Number [facility] [address] [place] [address] * (ABNORMAL) POCT GLUCOSE, INTERFACED (12/28/2020 11:33 EDT) Glucose, POC 219(H) 70 - 100 mg/dL 12/28/2020 11:34 EDT [facility] HN LAB POC COMMENT (GLUCOSE) Test Performed by Nursing Services 12/28/2020 11:34 EDT [facility] Blood CAPILLARY BLOOD / Unknown 12/28/2020 11:33 EDT 12/28/2020 11:34 EDT Gilda Black MD POINT OF CARE TEST ORDERABLES Fi nal Result Performing Organization Address City/[facility] Co de Phone Number [facility] [address] [place] [address] * (ABNORMAL) POCT GLUCOSE, INTERFACED (12/28/2020 7:55 EDT) Glucose, POC 135(H) 70 - 100 mg/dL 12/28/2020 8:53 EDT [facility] HN LAB POC COMMENT (GLUCOSE) Test Performed by Nursing Services 12/28/2020 8:53 EDT [facility] Blood CAPILLARY BLOOD / Unknown 12/28/2020 7:55 EDT 12/28/2020 8:53 EDT us Gilda Black MD POINT OF CARE TEST ORDERABLES Fi nal Result Performing Organization Address City/[facility]/ZIP Co de Phone Number [facility] [address] [place] [address] * (ABNORMAL) COMPLETE BLOOD COUNT (12/28/2020 7:29 EDT) WBC 8.16 4.00 - 10.40 K/cmm 12/28/2020 7:52 EDT [facility] RBC 3.58(L) 4.36 - 5.78 M/cmm 12/28/2020 7:52 [facility] Hemoglobin 10.6(L) 13.8 - 17.3 gm/dL 12/28/2020 7:52 T [facility] HCT 31.4(L) 39.5 - 50.2 % 12/28/2020 7:52 [facility] MCV 88 81 - 95 fl 12/28/2020 7:52 T [facility] MCH 29.6 27.6 - 33.0 pg 12/28/2020 7:52 [facility] MCHC 33.8 32.8 - 36.4 gm/dL 12/28/2020 7:52 [facility] RDW-CV 13.5 <14.2 % 12/28/2020 7:52 [facility] RDW-SD 43.5 <46.0 fl 12/28/2020 7:52 [facility] PLT 294 141 - 377 K/cmm 12/28/2020 7:52 [facility] MPV 9.6 9.5 - 12.7 fl 12/28/2020 7:52 [facility] Blood VENOUS BLOOD / Unknown Venipuncture / Unknown 12/28/2020 7:29 EDT 12/28/2020 7:40 EDT us Marciano Segovia MD HEMATOLOGY & PF4 ORDERABL ES Final Result [facility] [address] [place] [address] * (ABNORMAL) BASIC METABOLIC PANEL (BMP) (12/28/2020 7:29 EDT) Sodium 134(L) 136 - 145 mmol/L 12/28/2020 8:19 [facility] Potassium 3.9 3.5 - 5.0 mEq/L 12/28/2020 8:19 [facility] Chloride 99 96 - 110 mEq/L 12/28/2020 8:19 [facility] CO2 Total 28 22 - 32 mEq/L 12/28/2020 8:19 [facility] Anion Gap 7(L) 8 - 16 12/28/2020 8:19 [facility] Glucose 143(H) 70 - 100 mg/dL 12/28/2020 8:19 [facility] Calcium 8.1(L) 8.5 - 10.5 mg/dL 12/28/2020 8:19 [facility] BUN 8(L) 10 - 26 mg/dL 12/28/2020 8:19 [facility] Creatinine 0.53(L) 0.66 - 1.25 mg/dL 12/28/2020 8:19 [facility] eGFR 116 >60 mL/min/1.7 3m2 12/28/2020 8:19 [facility] Comment:eGFR calculated sarahi krishnan CKD-EPI equation for non- Americans. Multiply eGFR by 1.16 for patients. Blood VENOUS BLOOD / Unknown Venipuncture / Unknown 12/28/2020 7:29 EDT 12/28/2020 7:45 EDT us Marciano Segovia MD CHEMISTRY & BLOOD GAS ORD ERABLES Final Result [facility] [address] [place] [address] * (ABNORMAL) POCT GLUCOSE, INTERFACED (12/27/2020 20:48 EDT) Glucose, POC 201(H) 70 - 100 mg/dL 12/27/2020 20:54 EDT [facility] HN LAB POC COMMENT (GLUCOSE) Test Performed by Nursing Services 12/27/2020 20:54 EDT [facility] Blood CAPILLARY BLOOD / Unknown 12/27/2020 20:48 EDT 12/27/2020 20:54 EDT us Gilda Black MD POINT OF CARE TEST ORDERABLES Fi nal Result [facility] [address] [place] [address] * (ABNORMAL) POCT GLUCOSE, INTERFACED (12/27/2020 17:26 EDT) Glucose, POC 254(H) 70 - 100 mg/dL 12/27/2020 17:31 EDT [facility] HN LAB POC COMMENT (GLUCOSE) Test Performed by Nursing Services 12/27/2020 17:31 EDT [facility] Blood CAPILLARY BLOOD / Unknown 12/27/2020 17:26 EDT 12/27/2020 17:31 EDT us Gilda Black MD POINT OF CARE TEST ORDERABLES Fi nal Result Performing Organization Address City/[facility]/ZIP Co de Phone Number [facility] [address] [place] [address] * (ABNORMAL) POCT GLUCOSE, INTERFACED (12/27/2020 12:10 EDT) Glucose, POC 266(H) 70 - 100 mg/dL 12/27/2020 12:11 EDT [facility] HN LAB POC COMMENT (GLUCOSE) Test Performed by Nursing Services 12/27/2020 12:11 EDT [facility] Blood CAPILLARY BLOOD / Unknown 12/27/2020 12:10 EDT 12/27/2020 12:11 EDT us Gilda Black MD POINT OF CARE TEST ORDERABLES Fi nal Result [facility] [address] [place] [address] * (ABNORMAL) C REACTIVE PROTEIN (12/27/2020 9:40 EDT) [facility] C-Reactive Protein 219.2(H) <10.0 mg/L 12/27/2020 21:01 EDT [facility] Blood VENOUS BLOOD / Unknown Venipuncture / Unknown 12/27/2020 9:40 EDT 12/27/2020 10:29 EDT us Js Meza MD CHEMISTRY & BLOOD GAS ORDERABLES Final Result Performing Organization Address City/[facility] Co de Phone Number [facility] [address] [place] [address] * (ABNORMAL) SED. RATE:WESTERGREN (12/27/2020 9:40 EDT) [facility] Sed Rate >100(H) 0 - 20 mm/hr 12/27/2020 20:24 EDT [facility] Comment:Note: Sample greater than 4 hours old (but less than 12 hours) when tested. If refrigerated, sample is stable when tested within 12 hours of collection. Blood VENOUS BLOOD / Unknown Venipuncture / Unknown 12/27/2020 9:40 EDT 12/27/2020 10:31 EDT us Js Meza MD HEMATOLOGY & PF4 ORDERABLES Sobia l Result Performing Organization Address [facility] Co de Phone Number [facility] [address] [place] [address] * (ABNORMAL) COMPLETE BLOOD COUNT (12/27/2020 9:40 EDT) [facility] WBC 10.20 4.00 - 10.40 K/cmm 12/27/2020 10:37 EDT [facility] RBC 4.02(L) 4.36 - 5.78 M/cmm 12/27/2020 10:37 EDT [facility] Hemoglobin 12.2(L) 13.8 - 17.3 gm/dL 12/27/2020 10:37 EDT [facility] HCT 35.6(L) 39.5 - 50.2 % 12/27/2020 10:37 T [facility] MCV 89 81 - 95 fl 12/27/2020 10:37 T [facility] MCH 30.3 27.6 - 33.0 pg 12/27/2020 10:37 [facility] MCHC 34.3 32.8 - 36.4 gm/dL 12/27/2020 10:37 [facility] RDW-CV 13.6 <14.2 % 12/27/2020 10:37 [facility] RDW-SD 44.5 <46.0 fl 12/27/2020 10:37 [facility] PLT 335 141 - 377 K/cmm 12/27/2020 10:37 [facility] MPV 10.1 9.5 - 12.7 fl 12/27/2020 10:37 [facility] Blood VENOUS BLOOD / Unknown Venipuncture / Unknown 12/27/2020 9:40 EDT 12/27/2020 10:31 EDT us Marciano Segovia MD HEMATOLOGY & PF4 ORDERABL ES Final Result [facility] [address] [place] [address] * (ABNORMAL) BASIC METABOLIC PANEL (BMP) (12/27/2020 9:40 EDT) Sodium 133(L) 136 - 145 mmol/L 12/27/2020 11:01 [facility] Potassium 3.9 3.5 - 5.0 mEq/L 12/27/2020 11:01 [facility] Chloride 95(L) 96 - 110 mEq/L 12/27/2020 11:01 [facility] CO2 Total 24 22 - 32 mEq/L 12/27/2020 11:01 [facility] Anion Gap 14 8 - 16 12/27/2020 11:01 [facility] Glucose 275(H) 70 - 100 mg/dL 12/27/2020 11:01 EDT [facility] Calcium 8.7 8.5 - 10.5 mg/dL 12/27/2020 11:01 T [facility] BUN 9(L) 10 - 26 mg/dL 12/27/2020 11:01 EDT [facility] Creatinine 0.60(L) 0.66 - 1.25 mg/dL 12/27/2020 11:01 T [facility] eGFR 110 >60 mL/min/1.7 3m2 12/27/2020 11:01 T [facility] Comment:eGFR calculated sarahi krishnan CKD-EPI equation for non- Americans. Multiply eGFR by 1.16 for patients. Blood VENOUS BLOOD / Unknown Venipuncture / Unknown 12/27/2020 9:40 EDT 12/27/2020 10:29 EDT us Marciano Segovia MD CHEMISTRY & BLOOD GAS ORD ERABLES Final Result Performing Organization Address City/[facility]/ZIP Co de Phone Number [facility] [address] [place] [address] * (ABNORMAL) POCT GLUCOSE, INTERFACED (12/27/2020 7:49 EDT) Glucose, POC 150(H) 70 - 100 mg/dL 12/27/2020 7:50 EDT [facility] HN LAB POC COMMENT (GLUCOSE) Test Performed by Nursing Services 12/27/2020 7:50 EDT [facility] Blood CAPILLARY BLOOD / Unknown 12/27/2020 7:49 EDT 12/27/2020 7:50 EDT us Gilda Black MD POINT OF CARE TEST ORDERABLES Fi nal Result Performing Organization Address City/[facility]/ZIP Co de Phone Number [facility] [address] [place] [address] * (ABNORMAL) POCT GLUCOSE, INTERFACED (12/26/2020 22:04 EDT) Glucose, POC 186(H) 70 - 100 mg/dL 12/26/2020 22:06 EDT [facility] HN LAB POC COMMENT (GLUCOSE) Test Performed by Nursing Services 12/26/2020 22:06 EDT [facility] Blood CAPILLARY BLOOD / Unknown 12/26/2020 22:04 EDT 12/26/2020 22:05 EDT Gilda Black MD POINT OF CARE TEST ORDERABLES Fi nal Result Performing Organization Address [facility] Co de Phone Number [facility] [address] [place] [address] * (ABNORMAL) POCT GLUCOSE, INTERFACED (12/26/2020 18:02 EDT) Glucose, POC 129(H) 70 - 100 mg/dL 12/26/2020 20:41 EDT [facility] HN LAB POC COMMENT (GLUCOSE) Test Performed by Nursing Services 12/26/2020 20:41 EDT [facility] Blood CAPILLARY BLOOD / Unknown 12/26/2020 18:02 EDT 12/26/2020 20:41 EDT Gilda Black MD POINT OF CARE TEST ORDERABLES Fi nal Result Performing Organization Address [facility] Co de Phone Number [facility] [address] [place] [address] * (ABNORMAL) POCT GLUCOSE, INTERFACED (12/26/2020 12:10 EDT) Glucose, POC 250(H) 70 - 100 mg/dL 12/26/2020 12:20 EDT [facility] HN LAB POC COMMENT (GLUCOSE) Test Performed by Nursing Services 12/26/2020 12:20 EDT [facility] Blood CAPILLARY BLOOD / Unknown 12/26/2020 12:10 EDT 12/26/2020 12:20 EDT Gilda Black MD POINT OF CARE TEST ORDERABLES Fi nal Result Performing Organization Address [facility]/ZIP Co de Phone Number [facility] [address] [place] [address] * (ABNORMAL) POCT GLUCOSE, INTERFACED (12/26/2020 8:46 EDT) Pathologist [facility] Glucose, POC 177(H) 70 - 100 mg/dL 12/26/2020 8:47 EDT [facility] HN LAB POC COMMENT (GLUCOSE) Test Performed by Nursing Services 12/26/2020 8:47 EDT [facility] Blood CAPILLARY BLOOD / Unknown 12/26/2020 8:46 EDT 12/26/2020 8:47 EDT Gilda Black MD POINT OF CARE TEST ORDERABLES Fi nal Result Performing Organization Address [facility] Co de Phone Number [facility] [address] [place] [address] * (ABNORMAL) COMPLETE BLOOD COUNT (12/26/2020 8:09 EDT) [facility] WBC 8.75 4.00 - 10.40 K/cmm 12/26/2020 8:42 [facility] RBC 3.73(L) 4.36 - 5.78 M/cmm 12/26/2020 8:42 [facility] Hemoglobin 11.7(L) 13.8 - 17.3 gm/dL 12/26/2020 8:42 [facility] HCT 33.3(L) 39.5 - 50.2 % 12/26/2020 8:42 [facility] MCV 89 81 - 95 fl 12/26/2020 8:42 [facility] MCH 31.4 27.6 - 33.0 pg 12/26/2020 8:42 [facility] MCHC 35.1 32.8 - 36.4 gm/dL 12/26/2020 8:42 [facility] RDW-CV 13.3 <14.2 % 12/26/2020 8:42 [facility] RDW-SD 43.7 <46.0 fl 12/26/2020 8:42 EDT [facility] PLT 275 141 - 377 K/cmm 12/26/2020 8:42 [facility] MPV 10.2 9.5 - 12.7 fl 12/26/2020 8:42 [facility] Blood VENOUS BLOOD / Unknown Venipuncture / Unknown 12/26/2020 8:09 EDT 12/26/2020 8:33 EDT us Marciano Segovia MD HEMATOLOGY & PF4 ORDERABL ES Final Result [facility] [address] [place] [address] * (ABNORMAL) BASIC METABOLIC PANEL (BMP) (12/26/2020 8:09 EDT) Sodium 134(L) 136 - 145 mmol/L 12/26/2020 9:02 [facility] Potassium 3.5 3.5 - 5.0 mEq/L 12/26/2020 9:02 [facility] Chloride 101 96 - 110 mEq/L 12/26/2020 9:02 [facility] CO2 Total 27 22 - 32 mEq/L 12/26/2020 9:02 [facility] Glucose 213(H) 70 - 100 mg/dL 12/26/2020 9:02 [facility] Calcium 8.3(L) 8.5 - 10.5 mg/dL 12/26/2020 9:02 [facility] Calculated Calcium 9.4 8.5 - 10.5 mg/dL 12/26/2020 9:02 [facility] BUN 8(L) 10 - 26 mg/dL 12/26/2020 9:02 [facility] Creatinine 0.55(L) 0.66 - 1.25 mg/dL 12/26/2020 9:02 [facility] eGFR 114 >60 mL/min/1.7 3m2 12/26/2020 9:02 EDT [facility] Comment:eGFR calculated sarahi krishnan CKD-EPI equation for non- Americans. Multiply eGFR by 1.16 for patients. Blood VENOUS BLOOD / Unknown Venipuncture / Unknown 12/26/2020 8:09 EDT 12/26/2020 8:36 EDT Marciano Segovia MD CHEMISTRY & BLOOD GAS ORD ERABLES Final Result Performing Organization Address [facility] Co de Phone Number [facility] [address] [place] [address] * (ABNORMAL) POCT GLUCOSE, INTERFACED (12/25/2020 20:28 EDT) Glucose, POC 233(H) 70 - 100 mg/dL 12/25/2020 20:33 EDT [facility] HN LAB POC COMMENT (GLUCOSE) Test Performed by Nursing Services 12/25/2020 20:33 EDT [facility] Blood CAPILLARY BLOOD / Unknown 12/25/2020 20:28 EDT 12/25/2020 20:33 EDT Gilda Black MD POINT OF CARE TEST ORDERABLES Fi nal Result Performing Organization Address [facility] Co de Phone Number [facility] [address] [place] [address] * (ABNORMAL) POCT GLUCOSE, INTERFACED (12/25/2020 17:06 EDT) Glucose, POC 173(H) 70 - 100 mg/dL 12/25/2020 17:09 EDT [facility] HN LAB POC COMMENT (GLUCOSE) Test Performed by Nursing Services 12/25/2020 17:09 EDT [facility] Blood CAPILLARY BLOOD / Unknown 12/25/2020 17:06 EDT 12/25/2020 17:08 EDT us Gilda Black MD POINT OF CARE TEST ORDERABLES Fi nal Result Performing Organization Address [facility]/ZIP Co de Phone Number [facility] [address] [place] [address] * (ABNORMAL) POCT GLUCOSE, INTERFACED (12/25/2020 11:52 EDT) [facility] Glucose, POC 224(H) 70 - 100 mg/dL 12/25/2020 11:57 EDT [facility] HN LAB POC COMMENT (GLUCOSE) Test Performed by Nursing Services 12/25/2020 11:57 EDT [facility] Blood CAPILLARY BLOOD / Unknown 12/25/2020 11:52 EDT 12/25/2020 11:57 EDT us Gilda Black MD POINT OF CARE TEST ORDERABLES Fi nal Result Performing Organization Address [facility] Co de Phone Number [facility] [address] [place] [address] * (ABNORMAL) COMPLETE BLOOD COUNT (12/25/2020 8:03 EDT) [facility] WBC 10.58(H) 4.00 - 10.40 K/cmm 12/25/2020 8:34 [facility] RBC 3.57(L) 4.36 - 5.78 M/cmm 12/25/2020 8:34 [facility] Hemoglobin 11.0(L) 13.8 - 17.3 gm/dL 12/25/2020 8:34 [facility] HCT 31.1(L) 39.5 - 50.2 % 12/25/2020 8:34 [facility] MCV 87 81 - 95 fl 12/25/2020 8:34 [facility] MCH 30.8 27.6 - 33.0 pg 12/25/2020 8:34 [facility] MCHC 35.4 32.8 - 36.4 gm/dL 12/25/2020 8:34 [facility] RDW-CV 12.9 <14.2 % 12/25/2020 8:34 [facility] RDW-SD 41.2 <46.0 fl 12/25/2020 8:34 EDT [facility] PLT 216 141 - 377 K/cmm 12/25/2020 8:34 [facility] MPV 10.4 9.5 - 12.7 fl 12/25/2020 8:34 [facility] Blood VENOUS BLOOD / Unknown Venipuncture / Unknown 12/25/2020 8:03 EDT 12/25/2020 8:23 EDT us Marciano Segovia MD HEMATOLOGY & PF4 ORDERABL ES Final Result [facility] [address] [place] [address] * (ABNORMAL) BASIC METABOLIC PANEL (BMP) (12/25/2020 8:03 EDT) Sodium 131(L) 136 - 145 mmol/L 12/25/2020 9:30 [facility] Potassium 3.3(L) 3.5 - 5.0 mEq/L 12/25/2020 9:30 [facility] Chloride 97 96 - 110 mEq/L 12/25/2020 9:30 [facility] CO2 Total 25 22 - 32 mEq/L 12/25/2020 9:30 [facility] Glucose 187(H) 70 - 100 mg/dL 12/25/2020 9:30 [facility] Calcium 8.2(L) 8.5 - 10.5 mg/dL 12/25/2020 9:30 [facility] Calculated Calcium 9.3 8.5 - 10.5 mg/dL 12/25/2020 9:30 [facility] BUN 8(L) 10 - 26 mg/dL 12/25/2020 9:30 [facility] Creatinine 0.55(L) 0.66 - 1.25 mg/dL 12/25/2020 9:30 [facility] eGFR 114 >60 mL/min/1.7 3m2 12/25/2020 9:30 EDT [facility] Comment:eGFR calculated sarahi krishnan CKD-EPI equation for non- Americans. Multiply eGFR by 1.16 for patients. Blood VENOUS BLOOD / Unknown Venipuncture / Unknown 12/25/2020 8:03 EDT 12/25/2020 8:33 EDT Marciano Segovia MD CHEMISTRY & BLOOD GAS ORD ERABLES Final Result Performing Organization Address [facility] Co de Phone Number [facility] [address] [place] [address] * (ABNORMAL) POCT GLUCOSE, INTERFACED (12/25/2020 7:56 EDT) Glucose, POC 180(H) 70 - 100 mg/dL 12/25/2020 8:01 EDT [facility] HN LAB POC COMMENT (GLUCOSE) Test Performed by Nursing Services 12/25/2020 8:01 EDT [facility] Blood CAPILLARY BLOOD / Unknown 12/25/2020 7:56 EDT 12/25/2020 8:01 EDT Gilda Black MD POINT OF CARE TEST ORDERABLES Fi nal Result Performing Organization Address [facility] Co de Phone Number [facility] [address] [place] [address] * (ABNORMAL) POCT GLUCOSE, INTERFACED (12/24/2020 20:53 EDT) Glucose, POC 188(H) 70 - 100 mg/dL 12/24/2020 20:59 EDT [facility] HN LAB POC COMMENT (GLUCOSE) Test Performed by Nursing Services 12/24/2020 20:59 EDT [facility] Blood CAPILLARY BLOOD / Unknown 12/24/2020 20:53 EDT 12/24/2020 20:59 EDT us Gilda Black MD POINT OF CARE TEST ORDERABLES Fi nal Result Performing Organization Address City/[facility]/ZIP Co de Phone Number [facility] [address] [place] [address] * (ABNORMAL) POCT GLUCOSE, INTERFACED (12/24/2020 17:09 EDT) Glucose, POC 161(H) 70 - 100 mg/dL 12/24/2020 17:10 EDT [facility] HN LAB POC COMMENT (GLUCOSE) Test Performed by Nursing Services 12/24/2020 17:10 EDT [facility] Blood CAPILLARY BLOOD / Unknown 12/24/2020 17:09 EDT 12/24/2020 17:10 EDT us Gilda Black MD POINT OF CARE TEST ORDERABLES Fi nal Result Performing Organization Address [facility] Co de Phone Number [facility] [address] [place] [address] * TRANSTHORACIC ECHO (TTE) COMPLETE W/DOPPLER W/CF NO CONTRAST (12/24/2020 14:15 EDT) LA Atrial Length A2C 2.7 cm [facility] LA Atrial Area A4C 14.5 cm2 [facility] LA ID/bsa, A-P 1.5 cm/m2 [facility] Mitral valve area, PHT, DP 5 cm2 [facility] LA ID, A-P, ES 3.6 cm [facility] LV PW thickness, ED, PLAX 0.9 0.6 - 1.1 cm [facility] Aortic root ID 3.0 cm [facility] LV ejection fraction, 1-p A4C 55 % [facility] LVOT mean gradient, S 2 mmHg [facility] AV LVOT peak gradient 4 mmHg [facility] LV e', lateral 0.12 m/s [facility] Mitral deceleration time 151 ms [facility] LVOT area 4.2 cm2 [facility] LVOT peak velocity, S 0.9 m/s [facility] LVOT VTI, S 16.8 cm [facility] PO INT OF CARE Stroke volume (SV), LVOT DP 70 ml [facility] Mitral peak gradient, D 2 mmHg [facility] LVOT mean velocity, S 0.6 m/s [facility] Mitral E-wave peak velocity 0.7 m/s [facility] Mitral pressure half-time 44 ms [facility] Mitral A-wave peak velocity 0.7 m/s [facility] LV Systolic Volume Index 7.0 mL/m2 [facility] LV Diastolic Volume Index 18.0 mL/m2 [facility] LA Atrial Length A4C 3.7 cm [facility] LVOT ID, S 2.3 cm [facility] POI NT OF CARE Mitral deceleration slope 479 cm/s2 [facility] EF 61 % [facility] T [facility] LA volume/bsa, ES, A4C 18.0 ml/m2 [facility] LA volumes, ES, A4C 42.0 ml [facility] LV Systolic Volume 17 mL [facility] LV Diastolic Volume 43 mL [facility] Stroke index (SV/bsa) LVOT DP 29.0 ml/m2 [facility] Interventricular Septum to Posterior Wall Thickness Ratio 1 [facility] P OINT OF C[facility] IVS thickness, ED, PLAX 0.9 cm [facility] LV e', medial 0.14 m/s [facility] LV e', average 0.13 m/s [facility] Pulmonic valve mean velocity, S 1 cm/s [facility] Ascending aorta ID, a-p 3.3 cm [facility] LA Atrial Area A2C 14.5 cm2 [facility] LA/aortic root ratio 1.2 [facility] LV ID, ED, PLAX 4.6 3.5 - 6.0 cm [facility] LV ID, ES, PLAX 3.2 2.1 - 4.0 cm [facility] LV end diastolic volume 1-p A2C 41 ml [facility] LV ejection fraction, 1-p A2C 62 % [facility] LV E/e', lateral 6.0 [facility] LV E/e', medial 6.0 [facility] POINT [facility] LV E/e', average 6 [facility] LV end-diastolic volume, 1-p A4C 39 ml [facility] Anatomical Region Laterality Modality Ultrasound Narrative 12/24/2020 14:40 EDT ?Right??Ventricle: The right ventricular cavity was severely dilated in size. Right ventricular systolic function was severely reduced. ?Left??Ventricle: Left ventricular systolic function was normal with an ejection fraction of 60-65%. Left ventricular wall motion was normal; there were no regional wall motion abnormalities. ?Suboptimal image quality but not obvious valvular vegetations. This does not rule IE given limited sensitivity specially with poor images. Left Ventricle The left ventricular cavity was normal in size. Left ventricular systolic function was normal with an ejection fraction of 60-65%. Left ventricular diastolic parameters were normal. Left ventricular wall thickness was normal. Left ventricular wall motion was normal; there were no regional wall motion abnormalities. Right Ventricle The right ventricular cavity was severely dilated in size. Right ventricular systolic function was severely reduced. Right ventricular wall thickness was normal. Left Atrium The left atrium was normal in size. Right Atrium The right atrium was normal in size. IVC/SVC The inferior vena cava was not well visualized. Mitral Valve Mitral valve structure was normal. There was no significant mitral valve stenosis or regurgitation. Tricuspid Valve Tricuspid valve structure was normal. There was mild tricuspid valve regurgitation. There was no tricuspid valve stenosis. Aortic Valve The aortic valve structure was trileaflet. The aortic leaflets were not thickened. There was no aortic valve stenosis. There was no aortic valve regurgitation. Pulmonic Valve The pulmonic valve was not well visualized. There was no pulmonic valve regurgitation. There was no pulmonic valve stenosis. Ascending Aorta The aorta was normal in size. Pericardium There was no pericardial effusion. Pulmonic Artery Pulmonary systolic pressure was estimated to be 30 mmHg + right atrial pressure. Study Details Study status: Routine. Transthoracic echocardiography. M-Mode, complete 2D, complete spectral Doppler, and color Doppler.The study was interpreted by [facility]. Pertinent images and digital data are archived for permanent storage and are available for subsequent review. Scanning was performed from the apical, parasternal, subcostal and suprasternal acoustic windows. Overall the study quality was adequate. Images were obtained using cardiac ultrasound machine EPIQ #[email or web address]. us Blake Staton MD CARDIAC ECHO ORDERABLES Final Result * BACTERIAL CULTURE, BLOOD (12/24/2020 12:09 EDT) Organism ID No Growth at 5 days 12/29/2020 13:01 EDT [facility] Blood VENOUS BLOOD / Unknown Blood Culture / Unknown 12/24/2020 12:09 EDT 12/24/2020 12:57 EDT Blake Staton MD MICROBIOLOGY - GENERAL ORDERAB LES Final Result Performing Organization Address [facility] Co de Phone Number [facility] [address] [place] [address] * BACTERIAL CULTURE, BLOOD (12/24/2020 12:01 EDT) Organism ID No Growth at 5 days 12/29/2020 13:01 EDT [facility] Blood VENOUS BLOOD / Unknown Blood Culture / Unknown 12/24/2020 12:01 EDT 12/24/2020 12:57 EDT Blake Staton MD MICROBIOLOGY - GENERAL ORDERAB LES Final Result Performing Organization Address City/[facility]/ZIP Co de Phone Number [facility] [address] [place] [address] * (ABNORMAL) POCT GLUCOSE, INTERFACED (12/24/2020 11:57 EDT) Glucose, POC 128(H) 70 - 100 mg/dL 12/24/2020 11:58 EDT [facility] HN LAB POC COMMENT (GLUCOSE) Test Performed by Nursing Services 12/24/2020 11:58 EDT [facility] Blood CAPILLARY BLOOD / Unknown 12/24/2020 11:57 EDT 12/24/2020 11:58 EDT us Gilda Black MD POINT OF CARE TEST ORDERABLES Fi nal Result [facility] [address] [place] [address] * (ABNORMAL) COMPLETE BLOOD COUNT (12/24/2020 9:44 EDT) WBC 13.75(H) 4.00 - 10.40 K/cmm 12/24/2020 10:39 EDT [facility] RBC 3.60(L) 4.36 - 5.78 M/cmm 12/24/2020 10:39 T [facility] Hemoglobin 10.8(L) 13.8 - 17.3 gm/dL 12/24/2020 10:39 [facility] HCT 30.7(L) 39.5 - 50.2 % 12/24/2020 10:39 [facility] MCV 85 81 - 95 fl 12/24/2020 10:39 [facility] MCH 30.0 27.6 - 33.0 pg 12/24/2020 10:39 [facility] MCHC 35.2 32.8 - 36.4 gm/dL 12/24/2020 10:39 [facility] RDW-CV 12.8 <14.2 % 12/24/2020 10:39 [facility] RDW-SD 40.0 <46.0 fl 12/24/2020 10:39 [facility] PLT 182 141 - 377 K/cmm 12/24/2020 10:39 [facility] MPV 10.5 9.5 - 12.7 fl 12/24/2020 10:39 [facility] Blood VENOUS BLOOD / Unknown Venipuncture / Unknown 12/24/2020 9:44 EDT 12/24/2020 10:29 EDT us Marciano Segovia MD HEMATOLOGY & PF4 ORDERABL ES Final Result Performing Organization Address City/[facility]/ZIP Co de Phone Number [facility] [address] [place] [address] * (ABNORMAL) BASIC METABOLIC PANEL (BMP) (12/24/2020 9:44 EDT) Sodium 130(L) 136 - 145 mmol/L 12/24/2020 10:49 EDT [facility] Potassium 3.4(L) 3.5 - 5.0 mEq/L 12/24/2020 10:49 [facility] Chloride 95(L) 96 - 110 mEq/L 12/24/2020 10:49 [facility] CO2 Total 24 22 - 32 mEq/L 12/24/2020 10:49 [facility] Glucose 174(H) 70 - 100 mg/dL 12/24/2020 10:49 [facility] Calcium 8.4(L) 8.5 - 10.5 mg/dL 12/24/2020 10:49 [facility] Calculated Calcium 9.4 8.5 - 10.5 mg/dL 12/24/2020 10:49 [facility] BUN 10 10 - 26 mg/dL 12/24/2020 10:49 [facility] Creatinine 0.57(L) 0.66 - 1.25 mg/dL 12/24/2020 10:49 [facility] eGFR 112 >60 mL/min/1.7 3m2 12/24/2020 10:49 [facility] Comment:eGFR calculated sarahi krishnan CKD-EPI equation for non- Americans. Multiply eGFR by 1.16 for patients. Blood VENOUS BLOOD / Unknown Venipuncture / Unknown 12/24/2020 9:44 EDT 12/24/2020 10:28 EDT us Marciano Segovia MD CHEMISTRY & BLOOD GAS ORD ERABLES Final Result Performing Organization Address City/[facility]/ZIP Co de Phone Number [facility] [address] [place] [address] * (ABNORMAL) POCT GLUCOSE, INTERFACED (12/24/2020 9:35 EDT) Glucose, POC 206(H) 70 - 100 mg/dL 12/24/2020 9:37 EDT [facility] HN LAB POC COMMENT (GLUCOSE) Test Performed by Nursing Services 12/24/2020 9:37 EDT [facility] Blood CAPILLARY BLOOD / Unknown 12/24/2020 9:35 EDT 12/24/2020 9:36 EDT us Gilda Black MD POINT OF CARE TEST ORDERABLES Fi nal Result Performing Organization Address [facility]/ZIP Co de Phone Number [facility] [address] [place] [address] * (ABNORMAL) POCT GLUCOSE, INTERFACED (12/23/2020 22:15 EDT) Glucose, POC 221(H) 70 - 100 mg/dL 12/23/2020 22:17 EDT [facility] HN LAB POC COMMENT (GLUCOSE) Test Performed by Nursing Services 12/23/2020 22:17 EDT [facility] Blood CAPILLARY BLOOD / Unknown 12/23/2020 22:15 EDT 12/23/2020 22:17 EDT us Gilda Black MD POINT OF CARE TEST ORDERABLES Fi nal Result [facility] [address] [place] [address] * (ABNORMAL) POCT GLUCOSE, INTERFACED (12/23/2020 19:34 EDT) Glucose, POC 298(H) 70 - 100 mg/dL 12/23/2020 19:35 EDT [facility] HN LAB POC COMMENT (GLUCOSE) Test Performed by Nursing Services 12/23/2020 19:35 EDT [facility] Blood CAPILLARY BLOOD / Unknown 12/23/2020 19:34 EDT 12/23/2020 19:35 EDT us Gilda Black MD POINT OF CARE TEST ORDERABLES Fi nal Result Performing Organization Address [facility] Co de Phone Number [facility] [address] [place] [address] * (ABNORMAL) POCT GLUCOSE, INTERFACED (12/23/2020 13:34 EDT) Glucose, POC 319(H) 70 - 100 mg/dL 12/23/2020 13:39 EDT [facility] HN LAB POC COMMENT (GLUCOSE) Test Performed by Nursing Services 12/23/2020 13:39 EDT [facility] Blood CAPILLARY BLOOD / Unknown 12/23/2020 13:34 EDT 12/23/2020 13:39 EDT Gilda Black MD POINT OF CARE TEST ORDERABLES Fi nal Result Performing Organization Address [facility] Co de Phone Number [facility] [address] [place] [address] * CT HIP LEFT WO CONTRAST (12/23/2020 8:42 EDT) Anatomical Region Laterality Modality Lower Extremities Left Computed Tomog janak 12/23/2020 10:3 5 EDT Impressions 12/23/2020 10:35 EDT FINDINGS / IMPRESSION: * ??No evidence of acute fracture or dislocation. * ??There are however end-stage degenerative changes in the left hip with severe joint space narrowing resulting in [id number] as well as subchondral sclerosis and cyst formation in addition to exuberant osteophytosis. * ??Degrees of the normal except at the lateral aspect of the femoral head neck junction which while nonspecific suggest perhaps an underlying element of CAM- type femoroacetabular impingement was related to the severe osteoarthrosis. * ??Minimal remodeling in the weightbearing portion of the left femoral head without evidence of discrete flattening or collapse of the articular surface to suggest avascular necrosis. * ??Incidentally noted couple of elongated regions of intramuscular fat along the proximal aspect of the rectus femoris muscle with a couple of tiny foci of calcification, likely sequela from prior muscle injury with fat replacement, the possibility of intramuscular lipoma is less likely. * ??There is osteopenia. * ??Note made of vasectomy clips. A tiny focus of air in the subcutaneous soft tissues of the left inguinal region likely relates to prior injection. * ??Small fat-containing inguinal hernias. Narrative 12/23/2020 10:35 EDT EXAM: CT HIP LEFT WO CONTRAST ??12/23/2020 8:15 AM HISTORY: ?? Left hip pain; Hip pain, initial exam; hip pain COMPARISON: Left hip radiographs dated December 22, 2020. TECHNIQUE: Routine contiguous axial 0.9 mm slice thickness scans through the left hip were obtained without contrast administration. Sagittal and coronal reformations were also generated. No 3-D reconstructions were requested by the ordering provider. Procedure Note Jr Cee MD - 12/23/2020 EXAM: CT HIP LEFT WO CONTRAST 12/23/2020 8:15 AM HISTORY: Left hip pain; Hip pain, initial exam; hip pain COMPARISON: Left hip radiographs dated December 22, 2020. TECHNIQUE: Routine contiguous axial 0.9 mm slice thickness scans through the left hipwere obtained without contrast administration. Sagittal and coronalreformations were also generated. No 3-D reconstructions were requested bythe ordering provider. IMPRESSION FINDINGS / IMPRESSION: * No evidence of acute fracture or dislocation. * There are however end-stage degenerative changes in the left hip withsevere joint space narrowing resulting in [id number] as well assubchondral sclerosis and cyst formation in addition to exuberantosteophytosis. * Degrees of the normal except at the lateral aspect of the femoral headneck junction which while nonspecific suggest perhaps an underlyingelement of CAM-type femoroacetabular impingement was related to the severeosteoarthrosis. * Minimal remodeling in the weightbearing portion of the left femoralhead without evidence of discrete flattening or collapse of the articularsurface to suggest avascular necrosis. * Incidentally noted couple of elongated regions of intramuscular fatalong the proximal aspect of the rectus femoris muscle with a couple oftiny foci of calcification, likely sequela from prior muscle injury withfat replacement, the possibility of intramuscular lipoma is less likely. * There is osteopenia. * Note made of vasectomy clips. A tiny focus of air in the subcutaneoussoft tissues of the left inguinal region likely relates to priorinjection. * Small fat-containing inguinal hernias. Sachin Venegas MD IMG CT ORDERABLES Final Resul t * (ABNORMAL) BASIC METABOLIC PANEL (BMP) (12/23/2020 8:04 EDT) Sodium 129(L) 136 - 145 mmol/L 12/23/2020 8:33 [facility] Potassium 3.1(L) 3.5 - 5.0 mEq/L 12/23/2020 8:33 [facility] Chloride 100 96 - 110 mEq/L 12/23/2020 8:33 [facility] CO2 Total 17(L) 22 - 32 mEq/L 12/23/2020 8:33 [facility] Glucose 305(H) 70 - 100 mg/dL 12/23/2020 8:33 [facility] Calcium 7.1(L) 8.5 - 10.5 mg/dL 12/23/2020 8:33 [facility] Calculated Calcium 8.5 8.5 - 10.5 mg/dL 12/23/2020 8:33 [facility] BUN 16 10 - 26 mg/dL 12/23/2020 8:33 [facility] Creatinine 0.53(L) 0.66 - 1.25 mg/dL 12/23/2020 8:33 [facility] eGFR 116 >60 mL/min/1.7 3m2 12/23/2020 8:33 [facility] Comment:eGFR calculated sarahi g CKD-EPI equation for non- Americans. Multiply eGFR by 1.16 for patients. Blood VENOUS BLOOD / Unknown Venipuncture / Unknown 12/23/2020 8:04 EDT 12/23/2020 8:07 EDT Mary Ann Pinto MD CHEMISTRY & BLOOD GAS O RDERABLES Final Result Performing Organization Address [facility] Co de Phone Number [facility] [address] [place] [address] * (ABNORMAL) BACTERIAL CULTURE, BLOOD (12/23/2020 8:01 EDT) [facility] Organism ID Staphylococcus aureus(AA) VITEK SUSCEPTIBILITY 7:50 EDT [facility] Comment: Detected in the anaerobic bottle at 18 hours Susceptible to nafcillin, cephalosporins and other beta lactam antibiotics (mecA gene product absent). Specimen tested for 12 gram positive organism identification targets and 3 antibiotic resistance determinant targets, by micro array technology. Staphylococcus aureus is a life threatening infection when found in the blood. It should NOT be considered a contaminant. Staphylococcus aureus bacteremia should be treated with IV antibiotics. Infectious Disease consultation is encouraged. Blood VENOUS BLOOD / Unknown Blood Culture / Unknown 12/23/2020 8:01 EDT 12/23/2020 8:11 EDT Narrative Organism Antibiotic Method Susceptibility Staphylococcus aureus Cefazolin VITEK SUSCEPTIBILIT Y Deduced Susceptible Staphylococcus aureus Oxacillin VITEK SUSCEPTIBILIT Y <=0.25 ug/mL: Susceptible Staphylococcus aureus Vancomycin VITEK SUSCEPTIBILIT Y 1 ug/mL: Susceptible Mary Ann Pinto MD MICROBIOLOGY - GENERAL ORDERABLES Final Result Performing Organization Address [facility] Co de Phone Number [facility] [address] [place] [address] * (ABNORMAL) HEMOGLOBIN A1C (12/23/2020 7:02 EDT) Pathologist [facility] Hemoglobin A1c 13.9(H) <5.7 % 12/23/2020 12:55 EDT [facility] Comment: Glycemic Status References: Normal: ??<5.7% Pre-Diabetes: ??5.7% - 6.4% Diagnostic of Diabetes: ??> or = 6.5% (if confirmed) Goals for glycemic control in diabetics (ADA 2017): <7.0% target for non adults with diabetes. <7.5% target for children and adolescents with Type I Diabetes. More or less stringent targets may be appropriate for individual patients. Est Avg Glucose 352 mg/dL 12:55 EDT [facility] Comment:The eAG represents t he A1c result expressed as average glucose in mg/dL. Blood VENOUS BLOOD / Unknown Venipuncture / Unknown 12/23/2020 7:02 EDT 12/23/2020 7:06 EDT us Blake Staton MD CHEMISTRY & BLOOD GAS ORDERABL ES Final Result [facility] [address] [place] [address] * (ABNORMAL) COMPLETE BLOOD COUNT AND DIFFERENTIAL (12/23/2020 7:02 EDT) WBC 12.88(H) 4.00 - 10.40 K/cmm 12/23/2020 7:20 [facility] RBC 3.77(L) 4.36 - 5.78 M/cmm 12/23/2020 7:20 [facility] Hemoglobin 11.5(L) 13.8 - 17.3 gm/dL 12/23/2020 7:20 [facility] HCT 32.6(L) 39.5 - 50.2 % 12/23/2020 7:20 [facility] MCV 87 81 - 95 fl 12/23/2020 7:20 [facility] MCH 30.5 27.6 - 33.0 pg 12/23/2020 7:20 [facility] MCHC 35.3 32.8 - 36.4 gm/dL 12/23/2020 7:20 [facility] RDW-CV 12.8 <14.2 % 12/23/2020 7:20 [facility] RDW-SD 40.5 <46.0 fl 12/23/2020 7:20 [facility] PLT 215 141 - 377 K/cmm 12/23/2020 7:20 [facility] MPV 10.9 9.5 - 12.7 fl 12/23/2020 7:20 [facility] % Neutrophils 87.5 % 12/23/2020 7:20 [facility] % Lymphocytes 4.3 % 12/23/2020 7:20 [facility] % Monocytes 7.1 % 12/23/2020 7:20 [facility] % Eosinophils 0.0 % 12/23/2020 7:20 [facility] % Basophils 0.2 % 12/23/2020 7:20 [facility] % Immature Grans 0.9 % 12/24/19 7:20 [facility] Absolute Neutrophils 11.27(H) 2.20 - 8.85 K/cmm 12/23/2020 7:20 [facility] Absolute Lymphocytes 0.56(L) 1.09 - 3.30 K/cmm 12/23/2020 7:20 [facility] Absolute Monocytes 0.92(H) 0.10 - 0.80 K/cmm 12/23/2020 7:20 [facility] Absolute Eosinophils 0.00(L) 0.03 - 0.61 K/cmm 12/23/2020 7:20 [facility] ABS Basophils 0.02 0.01 - 0.11 K/cmm 12/23/2020 7:20 [facility] Absolute Immature Grans 0.11(H) 0.00 - 0.06 K/cmm 12/23/2020 7:20 [facility] Type of Differential: Auto 12/23/2020 7:20 [facility] Blood VENOUS BLOOD / Unknown Venipuncture / Unknown 12/23/2020 7:02 EDT 12/23/2020 7:06 EDT Mary Ann Pinto MD PACKAGES & DNA PROBE OR DERABLES Final Result Performing Organization Address [facility]/ZIP Co de Phone Number [facility] [address] [place] [address] * (ABNORMAL) BACTERIAL CULTURE, BLOOD (12/23/2020 7:02 EDT) Organism ID Staphylococcus aureus(AA) 12/26/2020 7:51 EDT [facility] Comment: Detected in the aerobic bottle at 22.9 hours Susceptible to nafcillin, cephalosporins and other beta lactam antibiotics (mecA gene product absent). [place] morphology consistent with other culture from same site/ source collected on the same day. Staphylococcus aureus is a life threatening infection when found in the blood. It should NOT be considered a contaminant. Staphylococcus aureus bacteremia should be treated with IV antibiotics. Infectious Disease consultation is encouraged. Blood VENOUS BLOOD / Unknown Blood Culture / Unknown 12/23/2020 7:02 EDT 12/23/2020 7:36 EDT Mary Ann Pinto MD MICROBIOLOGY - GENERAL ORDERABLES Final Result Performing Organization Address [facility] Co de Phone Number [facility] [address] [place] [phone] * (ABNORMAL) BASIC METABOLIC PANEL (BMP) (12/23/2020 3:14 EDT) Sodium 129(L) 136 - 145 mmol/L 12/23/2020 3:36 EDT [facility] Potassium 3.9 3.5 - 5.0 mEq/L 12/23/2020 3:36 EDT [facility] Chloride 95(L) 96 - 110 mEq/L 12/23/2020 3:36 EDT [facility] CO2 Total 22 22 - 32 mEq/L 12/23/2020 3:36 EDT [facility] Glucose 254(H) 70 - 100 mg/dL 12/23/2020 3:36 EDT [facility] Calcium 8.6 8.5 - 10.5 mg/dL 12/23/2020 3:36 EDT [facility] Calculated Calcium 9.4 8.5 - 10.5 mg/dL 12/23/2020 3:36 EDT [facility] BUN 18 10 - 26 mg/dL 12/23/2020 3:36 T [facility] Creatinine 0.69 0.66 - 1.25 mg/dL 12/23/2020 3:36 EDT [facility] eGFR 104 >60 mL/min/1.7 3m2 12/23/2020 3:36 EDT [facility] Comment:eGFR calculated sarahi krishnan CKD-EPI equation for non- Americans. Multiply eGFR by 1.16 for patients. Blood VENOUS BLOOD / Unknown Venipuncture / Unknown 12/23/2020 3:14 EDT 12/23/2020 3:16 EDT Alessandro Hernandez MD CHEMISTRY & BLOOD GAS ORDERAB LES Final Result [facility] [address] [place] [address] * (ABNORMAL) ANAEROBE CULTURE/SMEAR(INC. AEROBES), OTHER (12/23/2020 2:12 EDT) Organism ID Moderate Streptococcus agalactiae (Group B)(A) 1 7:31 T [facility] Comment:Penicillin and ampic illin are drugs of choice for treatment of beta hemolytic streptococcal infections. Organism ID Few Staphylococcus aureus(A) VITEK SUSCEPTIBILITY 1 7:31 T [facility] Comment:Susceptible to nafci llin, cephalosporins and other beta lactam antibiotics (mecA gene product absent). Organism ID Few mixed gram positive growth(A) 1 7:31 T [facility] Smear Few Neutrophils Present(A) 1 7:31 T [facility] Smear Many Mixed Gram Positive Organisms(A) 1 7:31 T [facility] Bone ENTIRE FOOT / Unknown 12/23/2020 2:12 EDT 12/23/2020 7:25 EDT Narrative Organism Antibiotic Method Susceptibility Staphylococcus aureus Cefazolin VITEK SUSCEPTIBILIT Y Deduced Susceptible Staphylococcus aureus Clindamycin VITEK SUSCEPTIBILIT Y 0.25 ug/mL: Susceptible Staphylococcus aureus Erythromycin VITEK SUSCEPTIBILIT Y <=0.25 ug/mL: Susceptible Staphylococcus aureus Oxacillin VITEK SUSCEPTIBILIT Y <=0.25 ug/mL: Susceptible Staphylococcus aureus Trimethoprim-Sulfa me thoxazole VITEK SUSCEPTIBILITY <=10 ug/mL: Susceptible Staphylococcus aureus Tetracycline VITEK SUSCEPTIBILIT Y <=1 ug/mL: Susceptible Staphylococcus aureus Vancomycin VITEK SUSCEPTIBILIT Y <=0.5 ug/mL: Susceptible Sachin Venegas MD MICROBIOLOGY - GENERAL ORDERA BLES Final Result Performing Organization Address [facility]/ZIP Co de Phone Number [facility] [address] [place] [address] * [place] GUIDED INJECT/ASPIR LEFT HIP (12/23/2020 0:52 EDT) Narrative 12/30/2020 9:26 EDT This is a non-reportable exam. Sachin Venegas MD IMG FLUOROSCOPY ORDERABLES Fi nal Result * (ABNORMAL) POCT GLUCOSE, INTERFACED (12/23/2020 0:30 EDT) Glucose, POC 270(H) 70 - 100 mg/dL 12/23/2020 0:35 EDT [facility] HN LAB POC COMMENT (GLUCOSE) Test Performed by Nursing Services 12/23/2020 0:35 EDT [facility] Blood CAPILLARY BLOOD / Unknown 12/23/2020 0:30 EDT 12/23/2020 0:35 EDT Alessandro Hernandez MD POINT OF CARE TEST ORDERABLES Final Result Performing Organization Address [facility]/ZIP Co de Phone Number [facility] [address] [place] [address] * LACTIC ACID (12/22/2020 23:44 EDT) Lactic Acid 1.6 <=2.0 mmol/L 12/23/2020 0:01 EDT [facility] Blood VENOUS BLOOD / Unknown Venipuncture / Unknown 12/22/2020 23:44 EDT 12/22/2020 23:49 EDT Alessandro Hernandez MD CHEMISTRY & BLOOD GAS ORDERAB LES Final Result [facility] [address] [place] [address] * HOLD GREEN TOP (12/22/2020 20:37 EDT) Hold Hold 12/22/2020 21:46 EDT [facility] Blood VENOUS BLOOD / Unknown Venipuncture / Unknown 12/22/2020 20:37 EDT 12/22/2020 20:40 EDT Alessandro Hernandez MD LAB INFO SERVICE AND SUPPORT & PHONE RESULT Final Result [facility] [address] [place] [address] * COVID-19 TEST [facility] PCR (12/22/2020 20:36 EDT) Swab ENTIRE NASOPHARYNX / Unknown Swab / Unknown 12/22/2020 20:36 EDT 12/22/2020 20:42 EDT Alessandro Hernandez MD MICROBIOLOGY - GENERAL ORDERA BLES Final Result [facility] [address] [place] [address] * HOLD BLUE TOP (12/22/2020 20:36 EDT) Hold Hold 12/22/2020 21:46 EDT [facility] Blood VENOUS BLOOD / Unknown Venipuncture / Unknown 12/22/2020 20:36 EDT 12/22/2020 20:40 EDT us Alessandro Hernandez MD LAB INFO SERVICE AND SUPPORT & PHONE RESULT Final Result Performing Organization Address City/[facility]/ZIP Co de Phone Number [facility] [address] [place] [address] * COVID-19 TESTING (12/22/2020 20:36 EDT) COVID-19 rt-PCR Result Negative Negative 12/22/2020 21:49 EDT [facility] Comment: This test has not been FDA cleared or approved. This test has been authorized by FDA under an EUA for use by authorized laboratories. This test has been authorized only for detection of nucleic acid from 2019-nCoV, not for any other viruses or pathogens. This test is only authorized for the duration of the declaration that circumstances exist justifying the authorization of emergency use of in vitro diagnostic tests for detection and/or diagnosis of 2019-nCoV under section 564(b)(1) of Act, 21 U.S.C ?? 360bbb-3(b) (1), unless the authorization is terminated or revoked sooner. Negative results do not preclude 2019-nCoV infection and should not be used as the sole basis for treatment or other patient management decisions. Negative results must be combined with clinical observations, patient history, and epidemiological information. Performed on the Dyn GeneXpert Instrument Performing Lab GeneXpert [facility] 12/22/2020 21:49 EDT [facility] Swab ENTIRE NASOPHARYNX / Unknown Swab / Unknown 12/22/2020 20:36 EDT 12/22/2020 20:42 EDT us Alessandro Hernandez MD MICROBIOLOGY - GENERAL ORDERA BLES Final Result [facility] [address] [place] [address] * (ABNORMAL) BETA HYDROXYBUTYRATE (12/22/2020 20:35 EDT) Beta Hydroxybutyrate 4.2(H) <0.4 mmol/L 12/22/2020 22:37 EDT [facility] Comment:Moderate hemolysis i dentified, interpret with caution as results may be affected due to hemolysis. Blood VENOUS BLOOD / Unknown Venipuncture / Unknown 12/22/2020 20:35 EDT 12/22/2020 20:40 EDT us Alessandro Hernandez MD CHEMISTRY & BLOOD GAS ORDERAB LES Final Result Performing Organization Address [facility]/ZIP Co de Phone Number [facility] [address] [place] [address] * (ABNORMAL) DIFFERENTIAL, AUTOMATED MANUAL (12/22/2020 20:35 EDT) % Neutrophils 78.3 % 12/22/2020 21:50 EDT [facility] % Banded Neutrophils 10.4 % 12/22/2020 21:50 [facility] % Lymphocytes 3.5 % 12/22/2020 21:50 [facility] % Monocytes 7.8 % 12/22/2020 21:50 [facility] Absolute Neutrophils 11.49(H) 2.20 - 8.85 K/cmm 12/22/2020 21:50 [facility] Absolute Bands 1.53 K/cmm 12/22/2020 21:50 [facility] Absolute Lymphocytes 0.51(L) 1.09 - 3.30 K/cmm 12/22/2020 21:50 [facility] Absolute Monocytes 1.15(H) 0.10 - 0.80 K/cmm 12/22/2020 21:50 T [facility] Blood VENOUS BLOOD / Unknown Venipuncture / Unknown 12/22/2020 20:35 EDT 12/22/2020 20:40 EDT Alessandro Hernandez MD HEMATOLOGY & PF4 ORDERABLES F inal Result Performing Organization Address City/[facility]/ZIP Co de Phone Number [facility] [address] [place] [address] * (ABNORMAL) SED. RATE:WESTERGREN (12/22/2020 20:35 EDT) [facility] Sed Rate >100(H) 0 - 20 mm/hr 12/22/2020 21:40 EDT [facility] Blood VENOUS BLOOD / Unknown Venipuncture / Unknown 12/22/2020 20:35 EDT 12/22/2020 20:40 EDT Alessandro Hernandez MD HEMATOLOGY & PF4 ORDERABLES F inal Result Performing Organization Address [facility] Co de Phone Number [facility] [address] [place] [address] * (ABNORMAL) C REACTIVE PROTEIN (12/22/2020 20:35 EDT) [facility] C-Reactive Protein 335.3(H) <10.0 mg/L 12/22/2020 21:35 EDT [facility] Blood VENOUS BLOOD / Unknown Venipuncture / Unknown 12/22/2020 20:35 EDT 12/22/2020 20:40 EDT Alessandro Hernandez MD CHEMISTRY & BLOOD GAS ORDERAB LES Final Result Performing Organization Address [facility] de Phone Number [facility] [address] [place] [address] * (ABNORMAL) COMPREHENSIVE METABOLIC PANEL (CMP) (12/22/2020 20:35 EDT) [facility] Sodium 129(L) 136 - 145 mmol/L 12/22/2020 21:04 EDT [facility] LABORATORY SERVICES Potassium 4.7 3.5 - 5.0 mEq/L 12/22/2020 21:04 [facility] Comment:Moderate hemolysis i dentified, interpret with caution as hemolysis will elevate potassium result. Chloride 90(L) 96 - 110 mEq/L 12/22/2020 21:04 [facility] CO2 Total 18(L) 22 - 32 mEq/L 12/22/2020 21:04 [facility] Glucose 282(H) 70 - 100 mg/dL 12/22/2020 21:04 [facility] BUN 15 10 - 26 mg/dL 12/22/2020 21:04 [facility] Comment:Moderate hemolysis i dentified, interpret with caution as results may be affected due to hemolysis. Creatinine 0.65(L) 0.66 - 1.25 mg/dL 12/22/2020 21:04 [facility] eGFR 106 >60 mL/min/1.7 3m2 12/22/2020 21:04 [facility] Comment:eGFR calculated sarahi krishnan CKD-EPI equation for non- Americans. Multiply eGFR by 1.16 for patients. Total Protein 7.4 6.3 - 8.2 g/dL 12/22/2020 21:04 [facility] Comment:Moderate hemolysis i dentified, interpret with caution as results may be affected due to hemolysis. Albumin 3.8 3.4 - 4.9 g/dL 12/22/2020 21:04 [facility] Comment:Moderate hemolysis i dentified, interpret with caution as results may be affected due to hemolysis. Alkaline Phosphatase 78 38 - 126 U/L 12/22/2020 21:04 [facility] Comment:Moderate hemolysis i dentified. Hemolysis will decrease ALKP result. Suggest re-evaluation if clinically indicated AST 49(H) 15 - 46 U/L 12/22/2020 21:04 [facility] Comment:Moderate hemolysis i dentified, interpret with caution as results may be affected due to hemolysis. ALT 23 <50 U/L 12/22/2020 21:04 [facility] Bilirubin, Total 1.5(H) <1.4 mg/dL 12/23/19 21:04 [facility] Comment:Moderate hemolysis i dentified, interpret with caution as results may be affected due to hemolysis. Calcium 8.8 8.5 - 10.5 mg/dL 12/22/2020 21:04 [facility] Calculated Calcium 9.0 8.5 - 10.5 mg/dL 12/22/2020 21:04 [facility] Comment:Moderate hemolysis i dentified, interpret with caution as results may be affected due to hemolysis. Blood VENOUS BLOOD / Unknown Venipuncture / Unknown 12/22/2020 20:35 EDT 12/22/2020 20:40 EDT us Alessandro Hernandez MD CHEMISTRY & BLOOD GAS ORDERAB LES Final Result [facility] [address] [place] [address] * (ABNORMAL) COMPLETE BLOOD COUNT AND DIFFERENTIAL (12/22/2020 20:35 EDT) WBC 14.68(H) 4.00 - 10.40 K/cmm 12/22/2020 20:56 [facility] RBC 3.94(L) 4.36 - 5.78 M/cmm 12/22/2020 20:56 [facility] Hemoglobin 12.3(L) 13.8 - 17.3 gm/dL 12/22/2020 20:56 [facility] HCT 34.7(L) 39.5 - 50.2 % 12/22/2020 20:56 [facility] MCV 88 81 - 95 fl 12/22/2020 20:56 [facility] MCH 31.2 27.6 - 33.0 pg 12/22/2020 20:56 [facility] MCHC 35.4 32.8 - 36.4 gm/dL 12/22/2020 20:56 [facility] RDW-CV 12.4 <14.2 % 12/22/2020 20:56 [facility] RDW-SD 40.4 <46.0 fl 12/22/2020 20:56 [facility] PLT 200 141 - 377 K/cmm 12/22/2020 20:56 [facility] MPV 11.1 9.5 - 12.7 fl 12/22/2020 20:56 [facility] Type of Differential: Manual 12/22/2020 20:56 [facility] Blood VENOUS BLOOD / Unknown Venipuncture / Unknown 12/22/2020 20:35 EDT 12/22/2020 20:40 EDT us Alessandro Hernandez MD PACKAGES & DNA PROBE ORDERABL ES Final Result [facility] [address] [place] [address] * XR HIP LEFT 2-3 VIEWS, OPTIONAL PELVIS (12/22/2020 20:25 EDT) Anatomical Region Laterality Modality Lower Extremities Left Computed Radio graphy 12/22/2020 20:2 6 EDT Impressions 12/22/2020 20:26 EDT FINDINGS / IMPRESSION: Left hip AP supine and cross table lateral views: There is severe osteoarthrosis involving the left hip joint. Milder degenerative changes noted in the visualized lower most portion of the incompletely imaged left SI joint and along the pubic symphysis. Vasectomy surgical clips are partially imaged. The bones appear diffusely demineralized. The severity the osteopenia reduces radiographic sensitivity for the detection of a subtle or nondisplaced acute fracture if present. Also, with overlying soft tissues obscuring the region of the interest on the crosstable lateral view including the femoral head and neck. There is a high degree of clinical concern for a radiographically occult fracture CT imaging can be obtained for further assessment. Narrative 12/22/2020 20:26 EDT EXAM/TECHNIQUE: XR HIP LEFT 2-3 VIEWS, OPTIONAL PELVIS ??12/22/2020 8:00 PM HISTORY: ?? trauma fall pain - left hip pain after fall COMPARISON: Left hip radiographs on July 06, 2014. Procedure Note Edson Villeda MD - 12/22/2020 EXAM/TECHNIQUE: XR HIP LEFT 2-3 VIEWS, OPTIONAL PELVIS 12/22/2020 8:00 PM HISTORY: trauma fall pain - left hip pain after fall COMPARISON: Left hip radiographs on July 06, 2014. IMPRESSION FINDINGS / IMPRESSION: Left hip AP supine and cross table lateral views: There is severe osteoarthrosis involving the left hip joint. Milderdegenerative changes noted in the visualized lower most portion of theincompletely imaged left SI joint and along the pubic symphysis. Vasectomysurgical clips are partially imaged. The bones appear diffusely demineralized. The severity the osteopeniareduces radiographic sensitivity for the detection of a subtle ornondisplaced acute fracture if present. Also, with overlying soft tissuesobscuring the region of the interest on the crosstable lateral viewincluding the femoral head and neck. There is a high degree of clinical concern for a radiographically occultfracture CT imaging can be obtained for further assessment. us Alessandro Hernandez MD IMG DIAGNOSTIC IMAGING ORDERA BLES Final Result * XR FOOT RIGHT 3 OR MORE VIEWS (12/22/2020 20:25 EDT) Anatomical Region Laterality Modality Lower Extremities Right Computed Radio graphy 12/22/2020 20:3 2 EDT Impressions 12/22/2020 20:32 EDT FINDINGS / IMPRESSION: Right foot 3 nonweightbearing views: There are transmetatarsal amputations at the level of the proximal aspects of the first through fifth metatarsals. Plantar skin and subcutaneous soft tissue ulcer at about the level of the transmetatarsal amputations. There is prominent soft tissue swelling surrounding the ulcer and extending throughout the foot. Osseous irregularity at the amputation margins may be postsurgical. If there is a high degree of clinical concern for osteomyelitis then MR imaging can be obtained to further evaluate for this possibility. Degenerative joint changes and calcaneal enthesopathic changes are similar compared to the prior study. Atherosclerotic arterial calcification is again noted. Narrative 12/22/2020 20:32 EDT EXAM/TECHNIQUE: XR FOOT RIGHT 3 OR MORE VIEWS ??12/22/2020 7:55 PM HISTORY: ?? fever foot wound, right plantar COMPARISON: Right foot radiographs on October 07, 2019. Procedure Note Edson Villeda MD - 12/22/2020 EXAM/TECHNIQUE: XR FOOT RIGHT 3 OR MORE VIEWS 12/22/2020 7:55 PM HISTORY: fever foot wound, right plantar COMPARISON: Right foot radiographs on October 07, 2019. IMPRESSION FINDINGS / IMPRESSION: Right foot 3 nonweightbearing views: There are transmetatarsal amputations at the level of the proximal aspectsof the first through fifth metatarsals. Plantar skin and subcutaneous soft tissue ulcer at about the level of thetransmetatarsal amputations. There is prominent soft tissue swellingsurrounding the ulcer and extending throughout the foot. Osseousirregularity at the amputation margins may be postsurgical. If there is ahigh degree of clinical concern for osteomyelitis then MR imaging can beobtained to further evaluate for this possibility. Degenerative joint changes and calcaneal enthesopathic changes are similarcompared to the prior study. Atherosclerotic arterial calcification is again noted. us Alessandro Hernandez MD IMG DIAGNOSTIC IMAGING ORDERA BLES Final Result documented in this encounter Visit Diagnoses Diagnosis Diabetic foot infection (HCC-CMS)- Primary Type II or unspecified type diabetes mellitus with other specified manifestations, not stated as uncontrolled Diabetic foot infection (HCC-CMS) Type II or unspecified type diabetes mellitus with other specified manifestations, not stated as uncontrolled Ketoacidosis Acidosis Deep vein thrombosis (DVT) of proximal vein of left lower extremity, unspecified chronicity (HCC-CMS) Type 2 diabetes mellitus without complication, with long-term current use of insulin (HCC-CMS) Primary osteoarthritis of left hip Primary localized osteoarthrosis, pelvic region and thigh Type 2 diabetes mellitus with diabetic polyneuropathy, with long-term current use of insulin (HCC-CMS) Memory loss due to medical condition Memory loss MSSA bacteremia 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 (HCC-CMS) Adjustment disorder with depressed mood Left hip pain Pain in joint, pelvic region and thigh Hyperglycemia Other abnormal glucose Urinary retention Retention of urine, unspecified Gross hematuria History of below-knee amputation of right lower extremity (HCC-CMS) Ketoacidosis Acidosis Deep vein thrombosis (DVT) of proximal vein of left lower extremity, unspecified chronicity (HCC-CMS) Type 2 diabetes mellitus without complication, with long-term current use of insulin ([facility]-CMS) 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 (HCC-CMS) documented in this encounter Admitting Diagnoses Diagnosis Diabetic foot infection (HCC-CMS) Type II or unspecified type diabetes mellitus with other specified manifestations, not stated as uncontrolled 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 (HCC-CMS) documented in this encounter Administered Medications Inactive Administered Medications - up to 3 most recent administrations Medication Order MAR Action Action Date Dose Rate Site acetaminophen (TYLENOL) tablet 1,000 mg 1,000 mg, oral, EVERY 6 HOURS PRN, Starting on [place] 12/23/21 at 0614, Until Sun12/23/20 at 1729, Pain, Fever, Routine Given 12/23/2020 12:08 EDT 1,000 mg Given 12/23/2020 6:17 EDT 1,000 mg acetaminophen (TYLENOL) tablet 1,000 mg 1,000 mg, oral, EVERY 6 HOURS, First dose (after last modification) on Sun12/23/20 at 1800, Until Discontinued, Routine Given 01/21/2021 6:18 EST 1,000 mg Given 01/21/2021 0:27 EST 1,000 mg Given 01/20/2021 17:55 EST 1,000 mg alteplase (CATHFLO ACTIVASE) injection 2 mg 2 mg, intercatheter, PRN, Starting on Sun12/31/20 at 1138, Until Sun01/21/21 at 1219, Line Care, Routine apixaban (ELIQUIS) tablet 5 mg 5 mg, oral, 2 TIMES DAILY, First dose on Sun12/23/20 at 1115, Until Discontinued, RoutineIndications:deep venous thrombosis Given 12/27/2020 8:40 EDT 5 mg Given 12/26/2020 20:38 EDT 5 mg Given 12/26/2020 8:46 EDT 5 mg apixaban (ELIQUIS) tablet 5 mg 5 mg, oral, 2 TIMES DAILY, First dose on Sun12/31/20 at 2100, Until Discontinued, RoutineIndications:deep venous thrombosis Given 01/21/2021 9:06 EST 5 mg Given 01/20/2021 20:54 EST 5 mg Given 01/20/2021 8:09 EST 5 mg ascorbic acid (vitamin C) (VITAMIN C) tablet 500 mg 500 mg, oral, DAILY, First dose on Sun12/24/20 at 1615, Until Discontinued, Routine Given 01/21/2021 9:06 EST 500 mg Given 01/20/2021 8:11 EST 500 mg Given 01/19/2021 8:18 EST 500 mg atorvastatin (LIPITOR) tablet 20 mg 20 mg, oral, DAILY, First dose on [place] 12/23/20 at 1115, Until Discontinued, Routine Given 01/21/2021 9:06 EST 20 mg Given 01/20/2021 8:10 EST 20 mg Given 01/19/2021 8:18 EST 20 mg bisacodyL (DULCOLAX) suppository 10 mg 10 mg, rectal, DAILY PRN, Starting on Sun01/18/21 at 0655, Until Sun01/21/21 at 1219, Constipation, Routine blood thinner patient education booklet 1 Each 1 Each, other, Once (Without Time Specified), 1 dose, Starting on Sun12/23/20 at 1109, Until Sun12/23/20 at 1218, STAT Given 12/23/2020 12:18 EDT 1 Each ceFAZolin in dextrose (iso-os) piggyback 2 g/100 mL (ANCEF) 2 gram/100 mL IVPB 1 dose, Starting on Sun12/29/20 at 2137, Until Sun12/29/20 at 0155 ceFAZolin in dextrose (iso-os) piggyback 2 g/100 mL 2 g, intravenous, Administer over 30 Minutes, EVERY 8 HOURS, 21 doses, First dose on Sun12/24/20 at 1600, Last dose on Sun12/31/20 at 0800, Type of Therapy: Definitive, Based on Cultures, Suspected Indication (Select all that apply): MSSA bacteremia/endovascular infection, ID Consult: Yes, ID Consult Type: Formal ID Consult, ID Provider Consulted: Robbie Brown MD, Routine Given 12/29/2020 8:59 EDT 2 g Given 12/28/2020 23:47 EDT 2 g Given 12/28/2020 16:13 EDT 2 g ceFAZolin in dextrose (iso-os) piggyback 2 g/100 mL 2 g, intravenous, Administer over 30 Minutes, EVERY 8 HOURS, 40 doses, First dose (after last modification) on Sun12/30/20 at 0000, Last dose on Sun01/12/21 at 0000, Type of Therapy: Definitive, Based on Cultures, Suspected Indication (Select all that apply): MSSA bacteremia/endovascular infection, ID Consult: Yes, ID Consult Type: Formal ID Consult, ID Provider Consulted: Robbie Brown MD, Routine Given 01/12/2021 0:02 EST 2 g Given 01/11/2021 15:16 EST 2 g Given 01/11/2021 8:51 EST 2 g ceFAZolin in dextrose (iso-os) piggyback 2 g/100 mL 2 g, intravenous, Administer over 30 Minutes, EVERY 8 HOURS, 21 doses, First dose (after last reorder) on Sun01/12/21 at 1015, Last dose on Sun01/19/21 at 0000, Type of Therapy: Definitive, Based on Cultures, Suspected Indication (Select all that apply): MSSA bacteremia/endovascular infection, ID Consult: Yes, ID Consult Type: Formal ID Consult, ID Provider Consulted: Robbie Brown MD, Routine Given 01/16/2021 9:15 EST 2 g Given 01/15/2021 23:52 EST 2 g Given 01/15/2021 17:16 EST 2 g ceFAZolin in dextrose (iso-os) piggyback 2 g/100 mL 2 g, intravenous, Administer over 30 Minutes, EVERY 8 HOURS, 25 doses, First dose (after last modification) on 01/16/21 at 1600, Last dose on 01/24/21 at 1600, Type of Therapy: Definitive, Based on Cultures, Suspected Indication (Select all that apply): MSSA bacteremia/endovascular infection, ID Consult: Yes, ID Consult Type: Formal ID Consult, ID Provider Consulted: Robbie Brown MD, Routine Given 01/21/2021 0:41 EST 2 g Given 01/20/2021 16:31 EST 2 g Given 01/20/2021 8:07 EST 2 g cefepime (MAXIPIME) 2,000 mg in sodium chloride (NS MBP) 50 mL IVPB 2,000 mg, intravenous, Administer over 30 Minutes, NOW X1, 1 dose, On Sun12/22/20 at 2345, Controlled antibiotic: has ID approved? No: ED Patient. If admitted, further doses required ID approval, Type of Therapy: Empiric, Suspected Indication (Select all that apply): Other, Other Indication: Diabteic foot infection, ID Consult: No, STAT Given 12/23/2020 2:46 EDT 2,000 mg cefepime (MAXIPIME) 2,000 mg in sodium chloride (NS MBP) 50 mL IVPB 2,000 mg, intravenous, Administer over 30 Minutes, EVERY 8 HOURS, 21 doses, First dose on [place] 12/23/20 at 1100, Last dose on [place] 12/30/20 at 0000, Controlled antibiotic: has ID approved? No: After 10pm, Before 8am, Type of Therapy: Empiric, Suspected Indication (Select all that apply): Severe DM foot infection, ID Consult: No, Routine Given 12/23/2020 11:15 EDT 2,000 mg cefTRIAXone (ROCEPHIN) 2,000 mg in sodium chloride (NS MBP) 50 mL IVPB 2,000 mg, intravenous, Administer over 30 Minutes, EVERY 24 HOURS, 7 doses, First dose (after last modification) on [place] 12/23/20 at 1800, Last dose on Sun12/29/20 at 1800, Type of Therapy: Empiric, Suspected Indication (Select all that apply): Osteomyelitis, ID Consult: Yes, ID Consult Type: Formal ID Consult, ID Provider Consulted: ID Fellow, Routine New Bag 12/23/2020 19:51 EDT 2,000 mg cholecalciferol (Vitamin D3) tablet 2,000 Units 2,000 Units, oral, DAILY, First dose on Sun12/24/20 at 1615, Until Discontinued, Routine Given 01/21/2021 9:06 EST 2,000 Units Given 01/20/2021 8:10 EST 2,000 Units Given 01/19/2021 8:17 EST 2,000 Units diclofenac sodium gel 4 g 4 g, topical, 4 TIMES DAILY, First dose on Sun12/25/20 at 0800, Until Discontinued, Routine Given 01/21/2021 9:39 EST 4 g Given 01/20/2021 21:05 EST 4 g Given 01/20/2021 16:31 EST 4 g Dimethicone-Zinc Oxide 20-25 % spray,non-aerosol topical, PRN, Starting on Sun01/04/21 at 1341, Until Sun01/21/21 at 1219, Wound Care Given 01/06/2021 21:02 EDT enoxaparin (LOVENOX) injection 120 mg 120 mg (rounded from 115.7 mg = 1 mg/kg ? 115.7 kg), subcutaneous, EVERY 12 HOURS, First dose on Sun12/27/20 at 2100, Until Discontinued, Routine Given 12/28/2020 8:02 EDT 120 mg Given 12/27/2020 20:50 EDT 120 mg enoxaparin (LOVENOX) injection 120 mg 120 mg (rounded from 115.7 mg = 1 mg/kg ? 115.7 kg), subcutaneous, EVERY 12 HOURS, First dose (after last modification) on [place] 12/30/20 at 0900, Until Discontinued, Routine Given 12/31/2020 8:54 EDT 120 mg Given 12/30/2020 21:15 EDT 120 mg Given 12/30/2020 9:34 EDT 120 mg enoxaparin (LOVENOX) injection 120 mg 120 mg, subcutaneous, NOW X1, 1 dose, On Sun12/29/20 at 2200, STAT, Recovery (only) Given 12/29/2020 22:01 EDT 12 0 mg Other gabapentin (NEURONTIN) capsule 100 mg 100 mg, oral, 2 TIMES DAILY, First dose on Sun12/31/20 at 1115, Until Discontinued, Routine Given 12/31/2020 11:14 EDT 100 mg gabapentin (NEURONTIN) capsule 100 mg 100 mg, oral, 3 TIMES DAILY, First dose (after last modification) on Sun12/31/20 at 1600, Until Discontinued, Routine Given 01/03/2021 8:58 EDT 100 mg Given 01/02/2021 21:16 EDT 100 mg Given 01/02/2021 14:25 EDT 100 mg gabapentin (NEURONTIN) capsule 200 mg 200 mg, oral, 3 TIMES DAILY, First dose (after last modification) on Sun01/03/21 at 1400, Until Discontinued, Routine Given 01/05/2021 8:43 EDT 200 mg Given 01/04/2021 21:12 EDT 200 mg Given 01/04/2021 13:32 EDT 200 mg gabapentin (NEURONTIN) capsule 300 mg 300 mg, oral, 3 TIMES DAILY, First dose (after last modification) on Sun01/05/21 at 1400, Until Discontinued, Routine Given 01/21/2021 9:05 EST 300 mg Given 01/20/2021 20:53 EST 300 mg Given 01/20/2021 16:30 EST 300 mg gadoterate meglumine solution 1-30 mL 1-30 mL, intravenous, Once in imaging, 1 dose, Starting on Sun12/29/20 at 1108, Until Sun12/29/20 at 1155, Routine, Imaging Protocol Orders Given 12/29/2020 11:55 EDT 24 mL HYDROmorphone (DILAUDID) tablet 2 mg 2 mg, oral, EVERY 6 HOURS PRN, Starting on 12/25/20 at 1043, Until 12/27/20 at 1235, Pain, Routine Given 12/27/2020 8:30 EDT 2 mg Given 12/26/2020 23:57 EDT 2 mg Given 12/26/2020 17:43 EDT 2 mg HYDROmorphone (DILAUDID) tablet 2 mg 2 mg, oral, EVERY 4 HOURS PRN, Starting on 12/27/20 at 1245, Until [place] 12/30/20 at 0936, Pain, Routine Given 12/30/2020 1:56 EDT 2 mg Given 12/29/2020 13:22 EDT 2 mg Given 12/29/2020 6:09 EDT 2 mg HYDROmorphone (DILAUDID) tablet 2 mg 2 mg, oral, EVERY 4 HOURS, First dose (after last modification) on [place] 12/30/20 at 1000, Until Discontinued, Routine Given 12/31/2020 9:15 EDT 2 mg Given 12/31/2020 7:11 EDT 2 mg Given 12/31/2020 2:54 EDT 2 mg HYDROmorphone (DILAUDID) tablet 2-4 mg 2-4 mg, oral, EVERY 30 MINUTES PRN, 2 doses, Starting on Sun12/29/20 at 2016, Until [place] 12/30/20 at 0012, Pain, Routine, Recovery (only) Given 12/29/2020 21:42 EDT 4 mg HYDROmorphone (DILAUDID) tablet 2-4 mg 2-4 mg, oral, EVERY 4 HOURS, First dose (after last modification) on Sun12/31/20 at 1400, Until Discontinued, Routine Given 01/03/2021 9:25 EDT 4 mg Given 01/03/2021 6:04 EDT 2 mg Given 01/03/2021 2:58 EDT 4 mg HYDROmorphone (DILAUDID) tablet 2-4 mg 2-4 mg, oral, EVERY 3 HOURS, First dose (after last modification) on Sun01/04/21 at 0745, Until Discontinued, Routine Given 01/06/2021 12:31 EDT 4 mg Given 01/06/2021 8:28 EDT 4 mg Given 01/06/2021 6:25 EDT 4 mg HYDROmorphone (PF) (DILAUDID) 0.5 mg/0.5 mL syringe 0.4 mg 0.4 mg, intravenous, NOW X1, 1 dose, On Sun12/29/20 at 1645, Routine Given 12/29/2020 16:19 EDT 0.4 mg HYDROmorphone (PF) (DILAUDID) 0.5 mg/0.5 mL syringe 0.5 mg 0.5 mg, intravenous, Once PRN Procedure, 1 dose, Starting on Sun12/29/20 at 0626, Until Sun12/29/20 at 1033, Pain, Routine Given 12/29/2020 10:33 EDT 0.5 mg HYDROmorphone (PF) (DILAUDID) 0.5 mg/0.5 mL syringe 0.5 mg 0.5 mg, intravenous, NOW X1, 1 dose, On 01/03/21 at 1200, Routine Given 01/03/2021 11:58 EDT 0.5 mg HYDROmorphone (PF) (DILAUDID) 0.5 mg/0.5 mL syringe 0.6 mg 0.6 mg, intravenous, NOW X1, 1 dose, On Sun01/12/21 at 1015, Routine Given 01/12/2021 10:06 EST 0.6 mg HYDROmorphone (PF) (DILAUDID) 0.5 mg/0.5 mL syringe 0.6 mg 0.6 mg, intravenous, NOW X1, 1 dose, On Sun01/12/21 at 1645, Routine Given 01/12/2021 16:21 EST 0.6 mg HYDROmorphone (PF) (DILAUDID) 0.5 mg/0.5 mL syringe 0.6 mg 0.6 mg, intravenous, NOW X1, 1 dose, On [place] 01/13/21 at 1530, Routine Given 01/13/2021 15:21 EST 0.6 mg ibuprofen (MOTRIN) tablet 400 mg 400 mg, oral, EVERY 6 HOURS, 8 doses, First dose on 01/17/21 at 1200, Last dose on Sun01/19/21 at 0600, Routine Given 01/19/2021 6:02 EST 400 mg Given 01/18/2021 23:51 EST 400 mg Given 01/18/2021 17:30 EST 400 mg insulin aspart U-100 (NOVOLOG FLEXPEN) injection 10 Units 10 Units, subcutaneous, Once (Time Specified), 1 dose, On [facility] 12/23/20 at 0030, STAT Given 12/23/2020 1:38 EDT 10 Units insulin aspart U-100 (NOVOLOG FLEXPEN) injection 10 Units 10 Units, subcutaneous, 3 TIMES DAILY WITH MEALS, First dose on [place] 12/23/20 at 1700, Until Discontinued, Routine Given 12/28/2020 18:17 EDT 10 Units Given 12/28/2020 11:58 EDT 10 Units Given 12/28/2020 7:57 EDT 10 Units insulin aspart U-100 (NOVOLOG FLEXPEN) injection 10 Units 10 Units, subcutaneous, 3 TIMES DAILY WITH MEALS, First dose on [facility] 12/30/20 at 0800, Until Discontinued, Routine Given 01/01/2021 8:03 EDT 10 Units Given 12/31/2020 18:28 EDT 10 Units Given 12/31/2020 12:35 EDT 10 Units insulin aspart U-100 (NOVOLOG FLEXPEN) injection 10 Units 10 Units, subcutaneous, 3 TIMES DAILY WITH MEALS, First dose (after last modification) on [facility] 01/15/21 at 0800, Until Discontinued, Routine Given 01/15/2021 12:52 EST 10 Units Given 01/15/2021 8:26 EST 10 Units insulin aspart U-100 (NOVOLOG FLEXPEN) injection 12 Units 12 Units, subcutaneous, 3 TIMES DAILY WITH MEALS, First dose (after last modification) on [facility] 01/01/21 at 1200, Until Discontinued, Routine Given 01/02/2021 8:19 EDT 12 Units Given 01/01/2021 17:46 EDT 12 Units Given 01/01/2021 12:31 EDT 12 Units insulin aspart U-100 (NOVOLOG FLEXPEN) injection 13 Units 13 Units, subcutaneous, 3 TIMES DAILY WITH MEALS, First dose (after last modification) on [place] 01/13/21 at 1200, Until Discontinued, Routine Given 01/14/2021 17:02 EST 13 Units Given 01/14/2021 9:25 EST 13 Units Given 01/13/2021 16:51 EST 13 Units insulin aspart U-100 (NOVOLOG FLEXPEN) injection 15 Units 15 Units, subcutaneous, 3 TIMES DAILY WITH MEALS, First dose (after last modification) on [place] 01/02/21 at 1200, Until Discontinued, Routine Given 01/03/2021 9:06 EDT 15 Units Given 01/02/2021 18:30 EDT 15 Units Given 01/02/2021 12:46 EDT 15 Units insulin aspart U-100 (NOVOLOG FLEXPEN) injection 18 Units 18 Units, subcutaneous, 3 TIMES DAILY WITH MEALS, First dose (after last modification) on [facility] 01/03/21 at 1200, Until Discontinued, Routine Given 01/12/2021 18:07 EST 18 Units Given 01/12/2021 9:40 EST 18 Units Given 01/11/2021 13:18 EST 18 Units insulin aspart U-100 (NOVOLOG FLEXPEN) injection 6 Units 6 Units (rounded from 5.785 Units = 0.05 Units/kg ? 115.7 kg), subcutaneous, 3 TIMES DAILY WITH MEALS, First dose (after last modification) on [facility] 01/17/21 at 1200, Until Discontinued, Routine Given 01/21/2021 9:07 EST 6 Units Given 01/20/2021 17:02 EST 6 Units Given 01/20/2021 11:46 EST 6 Units insulin aspart U-100 (NOVOLOG FLEXPEN) injection 8 Units 8 Units, subcutaneous, 3 TIMES DAILY WITH MEALS, First dose (after last modification) on [place] 01/16/21 at 1200, Until Discontinued, Routine Given 01/17/2021 8:35 EST 8 Units Given 01/16/2021 17:24 EST 8 Units Given 01/16/2021 11:52 EST 8 Units insulin aspart U-100 (NOVOLOG FLEXPEN) injection subcutaneous, 3 TIMES DAILY WITH MEALS, First dose on [facility] 12/23/20 at 0800, Until Discontinued, Routine Given 12/28/2020 18:20 EDT 6 Units Given 12/28/2020 11:57 EDT 6 Units Given 12/27/2020 17:29 EDT 8 Units insulin aspart U-100 (NOVOLOG FLEXPEN) injection subcutaneous, 3 TIMES DAILY WITH MEALS, First dose (after last modification) on [facility] 12/30/20 at 0800, Until Discontinued, Routine Given 01/20/2021 17:02 EST 3 Units Given 01/20/2021 11:46 EST 3 Units Given 01/19/2021 16:50 EST 4 Units insulin aspart U-100 (NOVOLOG FLEXPEN) injection subcutaneous, AT BEDTIME, First dose on [place] 12/30/20 at 2100, Until Discontinued, Routine Given 01/01/2021 22: 04 EDT 5 Units Given 12/30/2020 21:25 EDT 5 Units insulin glargine (LANTUS SOLOSTAR/SEMGLEE) injection pen 30 Units 30 Units, subcutaneous, AT BEDTIME, First dose (after last modification) on 01/17/21 at 2100, Until Discontinued, Routine Given 01/20/2021 21: 29 EST 30 Units Given 01/19/2021 20:44 EST 30 Units Given 01/18/2021 20:10 EST 30 Units insulin glargine (LANTUS SOLOSTAR/SEMGLEE) injection pen 35 Units 35 Units, subcutaneous, AT BEDTIME, First dose (after last modification) on 01/16/21 at 2100, Until Discontinued, Routine Given 01/16/2021 21: 49 EST 35 Units insulin glargine (LANTUS SOLOSTAR/SEMGLEE) injection pen 40 Units 40 Units, subcutaneous, AT BEDTIME, First dose (after last modification) on 01/15/21 at 2100, Until Discontinued, Routine Given 01/15/2021 20: 20 EST 40 Units insulin glargine (LANTUS SOLOSTAR/SEMGLEE) injection pen 45 Units 45 Units, subcutaneous, Once (Time Specified), 1 dose, On [place] 12/23/20 at 0030, STAT Given 12/23/2020 1:41 EDT 45 Units insulin glargine (LANTUS SOLOSTAR/SEMGLEE) injection pen 45 Units 45 Units, subcutaneous, AT BEDTIME, First dose on [place] 12/23/20 at 2100, Until Discontinued, Routine Given 01/02/2021 21:13 EDT 45 Units Given 01/01/2021 22:04 EDT 45 Units Given 12/31/2020 21:50 EDT 45 Units insulin glargine (LANTUS SOLOSTAR/SEMGLEE) injection pen 48 Units 48 Units, subcutaneous, AT BEDTIME, First dose (after last modification) on [place] 01/13/21 at 2100, Until Discontinued, Routine Given 01/14/2021 20: 56 EST 48 Units Given 01/13/2021 21:28 EST 48 Units insulin glargine (LANTUS SOLOSTAR/SEMGLEE) injection pen 50 Units 50 Units, subcutaneous, AT BEDTIME, First dose (after last modification) on 01/03/21 at 2100, Until Discontinued, Routine Given 01/04/2021 21:17 EDT 50 Units Given 01/03/2021 20:45 EDT 50 Units insulin glargine (LANTUS SOLOSTAR/SEMGLEE) injection pen 55 Units 55 Units, subcutaneous, AT BEDTIME, First dose (after last modification) on Sun01/05/21 at 2100, Until Discontinued, Routine Given 01/06/2021 21:42 EDT 55 Units Given 01/05/2021 20:42 EDT 55 Units insulin glargine (LANTUS SOLOSTAR/SEMGLEE) injection pen 60 Units 60 Units, subcutaneous, AT BEDTIME, First dose (after last modification) on Sun01/07/21 at 2100, Until Discontinued, Routine Given 01/12/2021 20:09 EST 60 Units Given 01/11/2021 20:40 EST 60 Units Given 01/10/2021 21:03 EST 60 Units iohexoL (OMNIPAQUE 350) solution 1-150 mL 1-150 mL, intravenous, Once in imaging, 1 dose, Starting on [place] 01/20/21 at 1514, Until [place] 01/20/21 at 1547, Routine, Imaging Protocol Orders Given 01/20/2021 15:47 EST 115 mL ketOROLAC (TORADOL) 30 mg/mL (1 mL) injection 1 dose, Starting on Sun12/22/20 at 1957, Until Sun12/22/20 at 2043 ketOROLAC (TORADOL) injection 15 mg 15 mg, intravenous, NOW X1, 1 dose, On Sun12/22/20 at 2045, STAT Given 12/22/2020 20:43 EDT 15 mg ketOROLAC (TORADOL) injection 15 mg 15 mg, intravenous, NOW X1, 1 dose, On Sun12/29/20 at 2045, Routine, Recovery (only) Given 12/29/2020 21:43 EDT 15 mg lactated ringers (LR) infusion at 75 mL/hr, intravenous, PACU CONTINUOUS, Starting on Sun12/29/20 at 2045, Until Sun12/30/20 at 0012, Routine, Recovery (only) New Bag 12/29/2020 21:47 EDT 75 mL/hr lactated ringers BOLUS 1,000 mL 1,000 mL, intravenous, NOW X1, 1 dose, On Sun12/22/20 at 2230, STAT New Bag 12/22/2020 22:22 EDT 1,000 mL lactated ringers BOLUS 1,000 mL 1,000 mL, intravenous, NOW X1, 1 dose, On Sun12/22/20 at 2300, STAT New Bag 12/23/2020 0:39 EDT 1,000 mL lactated ringers BOLUS 500 mL 500 mL, intravenous, NOW X1, 1 dose, On Sun12/23/20 at 1100, STAT New Bag 12/23/2020 11:15 EDT 500 mL lactated ringers BOLUS 500 mL 500 mL, intravenous, NOW X1, 1 dose, On Sun12/24/20 at 0915, STAT Given 12/24/2020 9:05 EDT 500 mL levothyroxine (SYNTHROID) tablet 112 mcg 112 mcg, oral, DAILY BEFORE BREAKFAST, First dose on Sun12/24/20 at 0700, Until Discontinued, Routine Given 01/21/2021 6:18 EST 112 mcg Given 01/20/2021 6:00 EST 112 mcg Given 01/19/2021 6:02 EST 112 mcg lidocaine (PF) 10 mg/mL (1 %) injection 2 mg 2 mg, intradermal, PRN, 4 doses, Starting on Sun12/28/20 at 1300, Until Sun01/21/21 at 1219, peripheral intravenous catheter placement, Routine lidocaine (PF) 10 mg/mL (1 %) injection 5 mg 5 mg, intradermal, PRN, 2 doses, Starting on Sun12/31/20 at 1138, Until Sun01/21/21 at 1219, line placement, Routine Given 12/31/2020 14:24 EDT 5 mg lidocaine 5 % (LIDODERM) patch 1 Patch 1 Patch, transdermal, Administer over 12 Hours, DAILY, First dose on Sun12/23/20 at 1115, Until Discontinued, Routine Patch Applied 01/21/2021 9:07 EST 1 Patch Left Thigh Patch Applied 01/20/2021 8:06 EST 1 Patch Le ft Thigh Patch Applied 01/19/2021 8:21 EST 1 Patch Le ft Thigh LORazepam (ATIVAN) 2 mg/mL injection 1 dose, Starting on Sun12/23/20 at 0425, Until Sun12/23/20 at 0451 LORazepam (ATIVAN) injection 1 mg 1 mg, intravenous, NOW X1, 1 dose, On Sun12/23/20 at 0430, STAT Given 12/23/2020 4:51 EDT 1 mg LORazepam (ATIVAN) tablet 1 mg 1 mg, oral, NOW X1, 1 dose, On Sun12/24/20 at 0245, Routine Given 12/24/2020 2:32 EDT 1 mg methocarbamoL (ROBAXIN) tablet 750 mg 750 mg, oral, 4 TIMES DAILY, First dose on Sun12/23/20 at 1200, Until Discontinued, Routine Given 01/21/2021 9:06 EST 7 50 mg Given 01/20/2021 20:53 EST 750 mg Given 01/20/2021 16:30 EST 750 mg metronidazole (FLAGYL) infusion 500 mg 500 mg, intravenous, Administer over 30 Minutes, NOW X1, 1 dose, On Sun12/22/20 at 2345, STAT New Bag 12/23/2020 2:14 EDT 500 mg metronidazole (FLAGYL) infusion 500 mg 500 mg, intravenous, Administer over 30 Minutes, EVERY 8 HOURS, 21 doses, First dose on Sun12/23/20 at 1600, Last dose on Sun12/30/20 at 0800, Routine New Bag 12/24/2020 9:09 EDT 500 mg New Bag 12/24/2020 0:42 EDT 500 mg New Bag 12/23/2020 15:41 EDT 500 mg morphine (MS CONTIN) CR tablet 15 mg 15 mg, oral, 2 TIMES DAILY WITH BREAKFAST & LUNCH, First dose on Sun01/06/21 at 1345, Until Discontinued, Routine Given 01/16/2021 9:14 EST 15 mg Given 01/15/2021 12:50 EST 15 mg Given 01/15/2021 8:14 EST 15 mg morphine (MS CONTIN) CR tablet 15 mg 15 mg, oral, DAILY WITH BREAKFAST, First dose (after last modification) on Sun01/17/21 at 0800, Until Discontinued, Routine Given 01/21/2021 9:06 EST 15 mg Given 01/20/2021 8:11 EST 15 mg Given 01/19/2021 7:32 EST 15 mg morphine (MS CONTIN) CR tablet 30 mg 30 mg, oral, DAILY WITH DINNER, First dose on [place] 01/06/21 at 1700, Until Discontinued, Routine Given 01/15/2021 17:15 EST 30 mg Given 01/14/2021 16:15 EST 30 mg Given 01/13/2021 16:51 EST 30 mg morphine (MS CONTIN) CR tablet 30 mg 30 mg, oral, 2 TIMES DAILY WITH LUNCH & DINNER, First dose (after last modification) on 01/16/21 at 1215, Until Discontinued, Routine Given 01/20/2021 17:00 EST 30 mg Given 01/20/2021 11:45 EST 30 mg Given 01/19/2021 16:49 EST 30 mg morphine (MS IR) tablet 15 mg 15 mg, oral, EVERY 4 HOURS PRN, Starting on [place] 12/23/20 at 1714, Until 12/25/20 at 1043, Pain, Routine Given 12/25/2020 9:01 EDT 15 mg Given 12/25/2020 4:32 EDT 15 mg Given 12/24/2020 6:32 EDT 15 mg morphine (MS IR) tablet 15 mg 15 mg, oral, EVERY 4 HOURS PRN, Starting on [place] 01/06/21 at 1315, Until 01/11/21 at 2055, Pain, Routine Given 01/11/2021 14:33 EST 15 mg Given 01/11/2021 5:44 EST 15 mg Given 01/10/2021 20:57 EST 15 mg morphine (MS IR) tablet 15 mg 15 mg, oral, EVERY 4 HOURS PRN, Starting on 01/11/21 at 2055, Until 01/21/21 at 1219, Pain, Routine Given 01/21/2021 6:21 EST 15 mg Given 01/20/2021 20:54 EST 15 mg Given 01/19/2021 16:15 EST 15 mg morphine injection 4 mg 4 mg, intravenous, NOW X1, 1 dose, On [place] 12/23/20 at 0100, STAT Given 12/23/2020 1:19 EDT 4 mg polyethylene glycol 3350 (MIRALAX) packet 17 g 17 g, oral, DAILY, First dose on 01/03/21 at 1200, Until Discontinued, Routine Given 01/09/2021 8:41 EST 17 g Given 01/08/2021 8:04 EDT 17 g Given 01/06/2021 8:28 EDT 17 g polyethylene glycol 3350 (MIRALAX) packet 17 g 17 g, oral, 2 TIMES DAILY, First dose (after last modification) on 01/09/21 at 2100, Until Discontinued, Routine Given 01/14/2021 9:17 EST 17 g Given 01/13/2021 21:11 EST 17 g Given 01/13/2021 8:46 EST 17 g polyethylene glycol 3350 (MIRALAX) packet 34 g 34 g, oral, 2 TIMES DAILY, First dose (after last modification) on 01/14/21 at 2100, Until Discontinued, Routine Given 01/20/2021 20:54 EST 34 g Given 01/20/2021 8:07 EST 34 g Given 01/18/2021 20:06 EST 34 g potassium chloride (KLOR-CON) packet 20 mEq 20 mEq, oral, NOW X1, 1 dose, On 12/24/20 at 1130, Routine Given 12/24/2020 11:54 EDT 20 mEq potassium chloride (KLOR-CON) packet 40 mEq 40 mEq, oral, NOW X1, 1 dose, On [place] 12/23/20 at 1100, Routine Given 12/23/2020 12:19 EDT 40 mEq potassium chloride in water infusion 20 mEq 20 mEq, intravenous, NOW X1, 1 dose, On 12/25/20 at 1000, Routine Given 12/25/2020 14:02 EDT 20 mEq senna (SENOKOT) tablet 2 Tablet 2 Tablet, oral, AT BEDTIME, First dose on 01/03/21 at 2100, Until Discontinued, Routine Given 01/08/2021 21:48 EDT 2 Tablets Given 01/07/2021 21:59 EDT 2 Tablets Given 01/06/2021 20:56 EDT 2 Tablets senna (SENOKOT) tablet 2 Tablet 2 Tablet, oral, 2 TIMES DAILY, First dose (after last modification) on 01/09/21 at 2100, Until Discontinued, Routine Given 01/21/2021 9:05 EST 2 Tablets Given 01/20/2021 20:54 EST 2 Tablets Given 01/20/2021 8:09 EST 2 Tablets sodium chloride 0.9 % (flush) flush 10 mL 10 mL, intercatheter, WEEKLY, First dose on Sun12/31/20 at 1500, Until Discontinued, Routine Given 01/14/2021 15:21 EST 10 mL Given 01/07/2021 16:32 EDT 10 mL Given 12/31/2020 16:03 EDT 10 mL sodium chloride 0.9 % (flush) flush 10 mL 10 mL, intercatheter, PRN, Starting on Sun12/31/20 at 1438, Until Sun01/21/21 at 1219, Line Care, Routine sodium chloride 0.9 % (flush) flush 20 mL 20 mL, intercatheter, PRN, Starting on Sun12/31/20 at 1438, Until Sun01/21/21 at 1219, Line Care, Routine TAMSulosin (FLOMAX) capsule 0.4 mg 0.4 mg, oral, DAILY, First dose on 01/08/21 at 1215, Until Discontinued, Routine Given 01/21/2021 9:06 EST 0.4 mg Given 01/20/2021 8:10 EST 0.4 mg Given 01/19/2021 8:18 EST 0.4 mg traMADol (ULTRAM) tablet 50 mg 50 mg, oral, 2 TIMES DAILY PRN, Starting on [place] 12/23/20 at 0645, Until 12/29/20 at 1037, Pain, Routine Given 12/28/2020 8:00 EDT 50 mg Given 12/27/2020 6:01 EDT 50 mg Given 12/26/2020 20:38 EDT 50 mg vancomycin (VANCOCIN) 1,750 mg in dextrose 5% (D5W) 500 mL IVPB 1,750 mg (rounded from 1,735.5 mg = 15 mg/kg ? 115.7 kg), intravenous, Administer over 105 Minutes, EVERY 12 HOURS, 14 doses, First dose on [place] 12/23/20 at 1600, Last dose on [place] 12/30/20 at 0400, Type of Therapy: Empiric, Suspected Indication (Select all that apply): DM foot infection, DM Foot Infection Severity: Severe severity, ID Consult: No, Routine Given 12/24/2020 4:38 EDT 1,750 mg Given 12/23/2020 16:49 EDT 1,750 mg vancomycin (VANCOCIN) 2,250 mg in dextrose 5% (D5W) 500 mL IVPB 2,250 mg (rounded from 2,314 mg = 20 mg/kg ? 115.7 kg), intravenous, Administer over 135 Minutes, NOW X1, 1 dose, On Sun12/22/20 at 2345, Type of Therapy: Empiric, Suspected Indication (Select all that apply): Other, Other Indication: Diabetic infection, ID Consult: No, STAT Given 12/23/2020 3:26 EDT 2,250 mg zinc oxide (DESITIN) 40 % paste topical, PRN, Starting on 01/03/21 at 1740, Until Sun01/21/21 at 1219, Irritation Given 01/04/2021 14:05 EDT documented in this encounter Discontinued Medications Medication Sig Discontinue Reason Start Date End Da te acetaminophen (TYLENOL) 500 mg tablet Take 2 Tabs by mouth every 6 hours as needed for Pain or Fever. 10/14/2019 01/21/2021 sodium phosphate (FLEET ENEMA) 19-7 gram/[address] 1 Enema rectally daily as needed. 01/21/2021 honey (MEDIHONEY, HONEY,) 80 % gel Apply 1 application topically three times a week. 01/28/2020 01/21/2021 metFORMIN (GLUCOPHAGE) 500 mg tablet Take 1 Tab by mouth 2 times daily. 04/22/2020 01/21/2021 SITagliptin (JANUVIA) 100 mg tablet Take 1 Tab by mouth daily. 04/22/2020 01/21/2021 insulin glargine (LANTUS SOLOSTAR) 100 unit/mL (3 mL) injection pen Inject 45 Units into the skin at bedtime. 04/22/2020 01/21/2021 insulin lispro (HUMALOG KWIKPEN INSULIN) 100 unit/mL injectable pen Inject 10 Units into the skin 3 times daily with meals. 04/23/2020 01/21/2021 traMADol (ULTRAM) 50 mg tablet Take 1 Tablet by mouth 2 times daily as needed for Pain. Daily Max: 100 mg 2020 01/21/2021 documented as of this encounter Active and Recently Administered Medications Times are shown in EST. Scheduled Medication Order 01/19/2021 01/20/2021 01/21/2021 acetaminophen (TYLENOL) tablet 1,000 mg 1,000 mg, oral, EVERY 6 HOURS, First dose (after last modification) on Sun12/23/20 at 1800, Until Discontinued, Routine 0601 (Given - Provider: Erica Parikh RN)1205 (Given - Provider: Kristina Dawn RN)1804 (Given - Provider: Kristina Dawn RN)2349 (Given - Provider: Erica Parikh RN) 0557 (Given - Provider: Erica Parikh RN)1145 (Given - Provider: Kristina Dawn RN)1755 (Given - Provider: Kristina Dawn RN) 0027 (Given - Provider: Yo Freitas RN)0618 (Given - Provider: Yo Freitas RN)1200 (Canceled Entry - Provider: Batch Job User Admin - Comment: Automatically canceled at discontinue of medication order) apixaban (ELIQUIS) tablet 5 mg 5 mg, oral, 2 TIMES DAILY, First dose on Sun12/31/20 at 2100, Until Discontinued, Routine 0818 (Given - Provider: Kristina Dawn RN)2036 (Given - Provider: Erica Parikh RN) 0809 (Given - Provider: Kristina Dawn RN)2053 (Given - Provider: Yo Freitas RN) 0906 (Given - Provider: Ana Laura Salomon RN) ascorbic acid (vitamin C) (VITAMIN C) tablet 500 mg 500 mg, oral, DAILY, First dose on Sun12/24/20 at 1615, Until Discontinued, Routine 0818 (Given - Provider: Kristina Dawn RN) 0811 (Given - Provider: Kristina Dawn RN) 0906 (Given - Provider: Ana Laura Salomon RN) atorvastatin (LIPITOR) tablet 20 mg 20 mg, oral, DAILY, First dose on Sun12/23/20 at 1115, Until Discontinued, Routine 0818 (Given - Provider: Kristina Dawn RN) 0810 (Given - Provider: Kristina Dawn RN) 0906 (Given - Provider: Ana Laura Salomon RN) ceFAZolin in dextrose (iso-os) piggyback 2 g/100 mL (CANCELED) 2 g, intravenous, Administer over 30 Minutes, EVERY 8 HOURS, 25 doses, First dose (after last modification) on Sun01/16/21 at 1600, Last dose on Sun01/24/21 at 1600, Type of Therapy: Definitive, Based on Cultures, Suspected Indication (Select all that apply): MSSA bacteremia/endovascul ar infection, ID Consult: Yes, ID Consult Type: Formal ID Consult, ID Provider Consulted: Robbie Brown MD, Routine 0732 (Given - Provider: Kristina Dawn RN)1613 (Given - Provider: Kristina Dawn RN)2349 (Given - Provider: Erica Parikh RN) 0807 (Given - Provider: Kristina Dawn RN)1631 (Given - Provider: Kristina Dawn RN) 0041 (Given - Provider: Yo Freitas RN)0939 (Not Given - Provider: Ana Laura Salomon RN - Reason: Discontinued) cholecalciferol (Vitamin D3) tablet 2,000 Units 2,000 Units, oral, DAILY, First dose on Sun12/24/20 at 1615, Until Discontinued, Routine 0817 (Given - Provider: Kristina Dawn RN) 0810 (Given - Provider: Kristina Dawn RN) 0906 (Given - Provider: Ana Laura Salomon RN) diclofenac sodium gel 4 g 4 g, topical, 4 TIMES DAILY, First dose on Sun12/25/20 at 0800, Until Discontinued, Routine 0733 (Given - Provider: Kristina Dawn RN)1205 (Given - Provider: Kristina Dawn RN)1615 (Given - Provider: Kristina Dawn RN)2037 (Given - Provider: Erica Parikh RN) 0806 (Given - Provider: Kristina Dawn RN)1146 (Given - Provider: Kristina Dawn RN)1631 (Given - Provider: Kirstina Dawn RN)2105 (Given - Provider: Yo Freitas RN) 0939 (Given - Provider: Ana Laura Salomon RN)1200 (Canceled Entry - Provider: Batch Job User Admin - Comment: Automatically canceled at discontinue of medication order) gabapentin (NEURONTIN) capsule 300 mg 300 mg, oral, 3 TIMES DAILY, First dose (after last modification) on Sun01/05/21 at 1400, Until Discontinued, Routine 0732 (Given - Provider: Kristina Dawn RN)1449 (Given - Provider: Kristina Dawn RN)2037 (Given - Provider: Erica Parikh, JARVIS) 0810 (Given - Provider: Kristina Dawn RN)1630 (Given - Provider: Kristina Dawn RN)2053 (Given - Provider: Yo Freitsa RN) 0905 (Given - Provider: Ana Laura Salomon, JARVIS) ibuprofen (MOTRIN) tablet 400 mg (COMPLETED) 400 mg, oral, EVERY 6 HOURS, 8 doses, First dose on Sun01/17/21 at 1200, Last dose on Sun01/19/21 at 0600, Routine 0602 (Given - Provider: Erica Parikh RN) insulin aspart U-100 (NOVOLOG FLEXPEN) injection 6 Units 6 Units (rounded from 5.785 Units = 0.05 Units/kg ? 115.7 kg), subcutaneous, 3 TIMES DAILY WITH MEALS, First dose (after last modification) on Sun01/17/21 at 1200, Until Discontinued, Routine 0848 (Given - Provider: Kristina Dawn RN)1207 (Given - Provider: Kristina Dawn RN)1650 (Given - Provider: Kristina Dawn RN) 0814 (Given - Provider: Kristina Dawn RN - Comment: 135)1146 (Given - Provider: Kristina Dawn RN)1702 (Given - Provider: Kristina Dawn RN) 0907 (Given - Provider: Ana Laura Salomon RN)1200 (Canceled Entry - Provider: Batch Job User Admin - Comment: Automatically canceled at discontinue of medication order) insulin aspart U-100 (NOVOLOG FLEXPEN) injection subcutaneous, 3 TIMES DAILY WITH MEALS, First dose (after last modification) on Sun12/30/20 at 0800, Until Discontinued, Routine 0847 (Given - Provider: Kristina Dawn RN)1206 (Not Given - Provider: Kristina Dawn RN - Reason: Order parameters not met)1650 (Given - Provider: Kristina Dawn RN) 0814 (Not Given - Provider: Kristina Dawn RN - Reason: Order parameters not met)1146 (Given - Provider: Kristina Dawn RN)1702 (Given - Provider: Kristina Dawn RN - Comment: 156) 0911 (Not Given - Provider: Ana Laura Salomon RN - Reason: Order parameters not met)1200 (Canceled Entry - Provider: Batch Job User Admin - Comment: Automatically canceled at discontinue of medication order) insulin aspart U-100 (NOVOLOG FLEXPEN) injection subcutaneous, AT BEDTIME, First dose on Sun12/30/20 at 2100, Until Discontinued, Routine 2042 (Not Given - Provider: Erica Parikh RN - Reason: Order parameters not met) 2128 (Not Given - Provider: Yo Freitas RN - Reason: Order parameters not met) insulin glargine (LANTUS SOLOSTAR/SEMGLEE) injection pen 30 Units 30 Units, subcutaneous, AT BEDTIME, First dose (after last modification) on Sun01/17/21 at 2100, Until Discontinued, Routine 2043 (Given - Provider: Erica Parikh RN) 2128 (Given - Provider: Yo Freitas RN) iohexoL (OMNIPAQUE 350) solution 1-150 mL (COMPLETED) 1-150 mL, intravenous, Once in imaging, 1 dose, Starting on Sun01/20/21 at 1514, Until Sun01/20/21 at 1547, Routine, Imaging Protocol Orders 1547 (Given - Provider: Yolanda Lagos) levothyroxine (SYNTHROID) tablet 112 mcg 112 mcg, oral, DAILY BEFORE BREAKFAST, First dose on Sun12/24/20 at 0700, Until Discontinued, Routine 0602 (Given - Provider: Erica Parikh RN) 0600 (Given - Provider: Erica Parikh RN) 0618 (Given - Provider: Yo Freitas RN) lidocaine 5 % (LIDODERM) patch 1 Patch 1 Patch, transdermal, Administer over 12 Hours, DAILY, First dose on Sun12/23/20 at 1115, Until Discontinued, Routine 820 (Patch Applied - Provider: Kristina Dawn RN)2037 (Patch Removed - Provider: Erica Parikh RN) 08 (Patch Applied - Provider: Kristina Dawn RN)2106 (Patch Removed - Provider: Yo Freitas RN) 09 (Patch Applied - Provider: Ana Laura Salomon RN)2106 (Due: Patch Removed - Provider: Ana Laura Salomon RN) methocarbamoL (ROBAXIN) tablet 750 mg 750 mg, oral, 4 TIMES DAILY, First dose on [place] 12/23/20 at 1200, Until Discontinued, Routine 0732 (Given - Provider: Kristina Dawn RN)1206 (Given - Provider: Kristina Dawn RN)1613 (Given - Provider: Kristina Dawn RN)2037 (Given - Provider: Erica Parikh RN) 0809 (Given - Provider: Kristina Dawn RN)1145 (Given - Provider: Kristina Dawn RN)1630 (Given - Provider: Kristina Dawn RN)2053 (Given - Provider: Yo Freitas RN) 0906 (Given - Provider: Ana Laura Salomon RN)1200 (Canceled Entry - Provider: Batch Job User Admin - Comment: Automatically canceled at discontinue of medication order) morphine (MS CONTIN) CR tablet 15 mg 15 mg, oral, DAILY WITH BREAKFAST, First dose (after last modification) on 01/17/21 at 0800, Until Discontinued, Routine 0732 (Given - Provider: Kristina Dawn RN) 0811 (Given - Provider: Kristina Dawn RN) 0906 (Given - Provider: Ana Laura Salomon RN) morphine (MS CONTIN) CR tablet 30 mg 30 mg, oral, 2 TIMES DAILY WITH LUNCH & DINNER, First dose (after last modification) on Sun01/16/21 at 1215, Until Discontinued, Routine 1206 (Given - Provider: Kristina Dawn RN)1649 (Given - Provider: Kristina Dawn RN) 1145 (Given - Provider: Kristina Dawn RN)1700 (Given - Provider: Yo Freitas RN) 1200 (Canceled Entry - Provider: Batch Job User Admin - Comment: Automatically canceled at discontinue of medication order) polyethylene glycol 3350 (MIRALAX) packet 34 g 34 g, oral, 2 TIMES DAILY, First dose (after last modification) on Sun01/14/21 at 2100, Until Discontinued, Routine 0817 (Not Given - Provider: Kristina Dawn RN - Reason: Patient/family refused - Comment: Patient had a bowel movement)2037 (Not Given - Provider: Erica Parikh RN - Reason: Patient/family refused) 0807 (Given - Provider: Kristina Dawn RN)2053 (Given - Provider: Yo Freitas RN) 0910 (Not Given - Provider: Ana Laura Salomon RN - Reason: Patient/family refused) senna (SENOKOT) tablet 2 Tablet 2 Tablet, oral, 2 TIMES DAILY, First dose (after last modification) on Sun01/09/21 at 2100, Until Discontinued, Routine 0817 (Given - Provider: Kristina Dawn RN)2037 (Not Given - Provider: Erica Parikh RN - Reason: Patient/family refused) 0809 (Given - Provider: Kristina Dawn RN)2053 (Given - Provider: Yo Freitas RN) 0905 (Given - Provider: Ana Laura Salomon RN) sodium chloride 0.9 % (flush) flush 10 mL 10 mL, intercatheter, WEEKLY, First dose on Sun12/31/20 at 1500, Until Discontinued, Routine TAMSulosin (FLOMAX) capsule 0.4 mg 0.4 mg, oral, DAILY, First dose on Sun01/08/21 at 1215, Until Discontinued, Routine 0818 (Given - Provider: Kristina Dawn RN) 0810 (Given - Provider: Kristina Dawn RN) 0906 (Given - Provider: Ana Laura Salomon RN) PRN Medication Order 01/19/2021 01/20/2021 01/21/2021 alteplase (CATHFLO ACTIVASE) injection 2 mg 2 mg, intercatheter, PRN, Starting on Sun12/31/20 at 1138, Until Sun01/21/21 at 1219, Line Care, Routine bisacodyL (DULCOLAX) suppository 10 mg 10 mg, rectal, DAILY PRN, Starting on Sun01/18/21 at 0655, Until Sun01/21/21 at 1219, Constipation, Routine dextrose 50 % solution 12.5 g 12.5 g (25 mL), intravenous, PRN, Starting on Sun12/23/20 at 0708, Until Sun01/21/21 at 1219, Low Blood Sugar, Routine Dimethicone-Zinc Oxide 20-25 % spray,non-aerosol topical, PRN, Starting on Sun01/04/21 at 1341, Until Sun01/21/21 at 1219, Wound Care glucagon injection 1 mg 1 mg, intramuscular, PRN, Starting on Sun12/23/20 at 0708, Until Sun01/21/21 at 1219, Other, Low blood sugar, Routine lidocaine (PF) 10 mg/mL (1 %) injection 2 mg 2 mg, intradermal, PRN, 4 doses, Starting on Sun12/23/20 at 1841, Until Sun01/21/21 at 1219, peripheral intravenous catheter placement, Routine lidocaine (PF) 10 mg/mL (1 %) injection 2 mg 2 mg, intradermal, PRN, 4 doses, Starting on Sun12/28/20 at 1300, Until Sun01/21/21 at 1219, peripheral intravenous catheter placement, Routine lidocaine (PF) 10 mg/mL (1 %) injection 5 mg 5 mg, intradermal, PRN, 2 doses, Starting on Sun12/31/20 at 1138, Until Sun01/21/21 at 1219, line placement, Routine morphine (MS IR) tablet 15 mg 15 mg, oral, EVERY 4 HOURS PRN, Starting on Sun01/11/21 at 2055, Until Sun01/21/21 at 1219, Pain, Routine 1615 (Given - Provider: Kristina Dawn RN) 4 (Given - Provider: Yo Freitas RN) 0621 (Given - Provider: Yo Freitas RN) sodium chloride 0.9 % (flush) flush 10 mL 10 mL, intercatheter, PRN, Starting on Sun12/31/20 at 1438, Until Sun01/21/21 at 1219, Line Care, Routine sodium chloride 0.9 % (flush) flush 20 mL 20 mL, intercatheter, PRN, Starting on Sun12/31/20 at 1438, Until Sun01/21/21 at 1219, Line Care, Routine zinc oxide (DESITIN) 40 % paste topical, PRN, Starting on Sun01/03/21 at 1740, Until Sun01/21/21 at 1219, Irritation documented in this encounter Orders Medications Ordered That Matthew ht Not Have Been Administered Count Last Ordered Date First Ordered Date bisacodyL (DULCOLAX) suppository 10 mg 1 HYDROmorphone (DILAUDID) tablet 2-4 mg 1 alteplase (CATHFLO ACTIVASE) injection 2 mg 1 12/31/2020 gabapentin (NEURONTIN) capsule 200 mg 1 sodium chloride 0.9 % (flush) flush 10 mL 1 12/31/2020 sodium chloride 0.9 % (flush) flush 20 mL 1 12/31/2020 atropine 0.1 mg/mL syringe 0.5 mg 1 021 diphenhydrAMINE (BENADRYL) i njection 12.5 mg 1 12/29/2020 fentaNYL citrate (PF) injection 25-50 mcg 1 12/29/2020 HYDROmorphone (PF) (DILAUDID ) 0.5 mg/0.5 mL syringe 0.25-0.5 mg 1 12/29/2020 ibuprofen (MOTRIN) tablet 600 mg 1 12/30/19 insulin aspart U-100 (NOVOLO G FLEXPEN) injection 1 12/29/2020 insulin aspart U-100 (NOVOLO G FLEXPEN) injection 10 Units 2 12/29/2020 morphine injection 2 mg 3 12/29/202012/04 naloxone (NARCAN) injection 0.2 mg 1 2020 ondansetron (PF) (ZOFRAN) injection 4 mg 1 12/29/2020 ceFAZolin (ANCEF) syringe 2 g 1 12/28/2020 lidocaine (PF) 10 mg/mL (1 % ) injection 2 mg 2 12/28/2020 12/23/2020 cefTRIAXone (ROCEPHIN) 2,000 mg in sodium chloride (NS MBP) 50 mL IVPB 1 12/23/2020 dextrose 50 % solution 12.5 g 1 12/23/2020 glucagon injection 1 mg 1 12/23/2020 insulin glargine (LANTUS EMELY OSTAR/SEMGLEE) injection pen 40 Units 1 12/23/2020 Diet Count Last Ordered Date First Orde red Date DISCHARGE DIET 1 01/21/2021 Nursing Count Last Ordered Date First Orde red Date ACTIVITY INSTRUCTIONS 1 01/21/2021 BATHING INSTRUCTIONS 1 01/21/2021 DRIVING INSTRUCTIONS 1 01/21/2021 WOUND CARE INSTRUCTIONS 1 01/21/2021 STRAIGHT CATH 1 01/07/2021 VTE PHARMACOLOGIC PROPHYLAXI S CURRENTLY ORDERED OR ON ALTERNATIVE THER 1 12/23/2020 Consult Count Last Ordered Date First Orde red Date CONSULT NUTRITION 1 12/24/2020 CONSULT DIABETES NURSE CLINICIAN CONSULT 1 12/23/2020 Wound Ostomy Count Last Ordered Date First Orde red Date WOUND EVALUATION AND TREAT 1 01/03/2021 IV Count Last Ordered Date First Orde red Date IV REQUEST 3 01/21/2021 12/27/2020 PICC LINE CLEARED FOR USE 1 12/31/2020 Admission Count Last Ordered Date First Orde red Date ADMIT TO INPATIENT 1 12/23/2020 Transfer Count Last Ordered Date First Orde red Date ED BED REQUEST 1 12/23/2020 Discharge Count Last Ordered Date First Orde red Date DISCHARGE PATIENT 1 01/21/2021 Legal Count Last Ordered Date First Orde red Date MISCELLANEOUS DISCHARGE INSTRUCTIONS 1 01/03 Equipment Count Last Ordered Date First Orde red Date GENERIC DME ORDER 1 01/21/2021 Case Request Count Last Ordered Date First Orde red Date CASE REQUEST OPERATING ROOM 1 12/28/2020 documented in this encounter Additional Health Concerns Infection Onset Date Last Indicated Resolved Time R/O COVID-19 Comment:Negative swab 12/22/2020 12/22/2020 12/22/2020 021 7:17 EDT documented as of this encounter Care Teams Quality Review Trainer Relationship Specialty Start Date End Date Jason Batres MD [address] [id number] PCP - General 07/27/11 12/31/23 documented as of this encounter
--- OUTSIDE RECORDS SUMMARY | 2024-02-28 16:46 | XMS_ITS | Encounter Summary ---
Author Organization [facility] Address [address] [place] [address] Care Team Providers Care Glost Placer Name Role Phone Jason Batres MD Primary [...] To Contact Diagnoses Ketoacidosis Diabetic foot infection ([facility]-CMS) Type 2 diabetes mellitus without complication, with long-term current use of insulin (HCC-CMS) Deep vein thrombosis (DVT) of proximal vein of left lower extremity, unspecified chronicity (HCC-CMS) Referral ID Status Reason Start Date Expiration Date Visits Re quested Visits Authorized [id number] 1 1 Encounter Details Date Type Department Care Team (Late st Contact Info) Description 12/29/2020 15:36 EDT - 12/29/2020 18:26 EDT Surgery [facility] [place] [address] [place] [address] Edson Arzate MD [address] [place] [id number] AMPUTATION, LOWER EXTREMITY, THROUGH DISTAL TIBIA AND FIBULA [09250 (CPT??)] Surgery Details Date/Time Status Location OR Service Patient Class Case Class Case Type Trauma Case? 12/29/2020 1536 Posted [facility] OR MOR 03 Orthopedics Inpatient F - Less than 24 hours Panel 1 Procedure LRB Anes Op Region Wound Class Comments AMPUTATION, LOWER EXTREMITY, THROUGH DISTAL TIBIA AND FIBULA Right Patient Choice Lower Leg Surgeon Surgeon Role Service Panel Edson Arzate MD Primary Orthopedics 1 Gilda Black MD Resident - Assisting Orthopedics 1 Js Meza MD Resident - Assisting Orthopedics 1 documented in this encounter Social History Tobacco [...] Sign Reading Time Taken Comments Blood Pressure 139/70 12/29/2020 1515 EDT Pulse 92 12/28/2020 0802 EDT Temperature 38 ??C (100.4 ??F) 12/29/2020 1401 EDT Respiratory Rate 16 12/29/2020 1401 EDT Oxygen Saturation 93% 12/29/2020 1520 EDT Inhaled Oxygen Concentration - - Weight 115.7 [...] Date: 12/23/20 Discharge Date: 01/21/21 Disposition (location): [facility] Condition at Discharge: Stable Reason for Admission (chief complaint): Left lower extremity/hip pain after a fall Principal/Final Diagnosis: MSSA bactermia, right diabetic foot infection (s/p BKA), left hip OA, hematuria, urinary retention Clinical Issues Needing Follow-up 1. Pertinent medication changes: Scheduled Tylenol 1000 mg q6h Lantus 30 units at betime Insulin Aspart 6 units with meals SSI insulin HOLD MANAGER TECHNICAL SALES METFORMIN AND JANUVIA Lidocaine patch to L hip Methocarbamol 750 mg 4 times daily MS Contin 15 mg w/ breakfast MS Contin 30 mg w/ lunch and dinner MS IR 15 mg q4h PRN Diclofenac gel 4 times daily Miralax daily Senna 2 tablets twice daily Tamsulosin 0.4 mg daily Vitamin C 500 mg tablet daily HOLD MANAGER TECHN[employer] SALES TRAMADOL 2. 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 His MANAGER TECH[employer]ICAL SALES metformin, sitagliptin, and insulin lispro were held and he was managed with basal bolus insulin glargine 30 units nightly with insulin aspart 6 before meals (plus sliding scale). He will hold MANAGER TECHNICAL SALES oral antihyperglycemic regimen of metformin and Januvia. Course was complicated by urinary retention for which a scanlon was placed. He failed a voiding trialand Urolggy recommended keeping the scanlon until 01/24/21, at which point it should be removed, followed by repeated bladder scanning to ensure adequate voiding. A CT urogram was done (unremarkable) and follow up with Urology at [facility] was arranged for 2 weeks from discharge. The patient was discharged to [facility] on 01/21/21. Relevant Imaging/Procedures [...] mild right trochanteric bursitis demonstrated on thewide [id number] coronal images. 12/24/20 TTE Results Pending at Discharge: Test results still pending from this admission Procedure Component Value Units Date/Time NON-MOSAIC LAYER/FNA CYTOLOGY [[id number]] Collected: 01/20/21 1316 Lab Status: In process Specimen: Urine, Catheterized (straight) Updated: 01/20/21 1340 Upcoming Appointments Feb 07, 2021 13:30 Us Lower Venous Duplex with VL2-[facility] - [facility] (--) [address] [facility] [address] Prep: -Wear loose fitting clothing. -Please bring any insurance information and a copayment if required by your insurance company. Feb 07, 2021 14:20 Follow Up Visit with Millie Landeros APRN [facility] Hematology & Oncology - [facility] ([facility]) [address] [facility] [id number] Feb 23, 2021 11:30 New Patient Visit with Raman West MD, Cystoscopy Scope [facility] Urology [facility] (--) [address] [facility] [id number] Urology (Dr West) to be scheduled for 2 weeks from now Orthopedics ([facility]) to be scheduled Desiree Marcano DO Internal Medicine, PGY-1 Pager [phone]/Cortex 01/21/21 9:33 Attending attestation: Patient seen and [...] > 500 mg/dL 3 mL 01/21/2021 2 gabapentin (NEURONTIN) 300 mg capsule Take [...] Garcia, PT - 01/21/2021 1018 EST [facility] Therapy Acute Therapies [facility] Physical Therapy Discontinue/Discharge Note Date of Service: [...] of admission but does require ongoing step hakw cues for technique and time to process [...] other consults recommended at this time Pager: [phone] Shelly Garcia, PT 01/26/2021 7:45 * Js Mzea MD - 01/21/2021 1003 EST Images from [...] is awaiting NICHOLE. Plan Type 2 Diabetes, MANAGER TE[employer] SALES regimen of 45 units glargine daily with 10 units lispro with meals; [id number] 13.9 - Continue glargine to 30 units [...] -Pain control - Tylenol 1000 q6 PRN, MANAGER [employer]CH[employer] SALES tramadol - Robaxin 750mg q4 - hold [...] LLE - Diagnosed in August 2020 - MANAGER TE[employer] SALES Eliquis 5mg BID Hypothyroidism - continue MANAGER [employer]CH[employer] SALES levothyroxine VTE Prophylaxis - MANAGER TECHNICAL SALES Eliquis 5mg BID Discharge Plan Discharge to [facility] 01/21 Consults Infectious Disease, Ortho, Med Psych, and Nutrition Corey Alvarez PGY3 Internal medicine Pager: [phone] 01/20/21 17:27 Attending attestation: I have seen and examined the patient and agree with findings and plans as outlined in the resident's note above. Lewis Davis MD * Mars Ledezma - 01/20/2021 1054 EST CASE MANAGEMENT DISCHARGE NOTE: DISCHARGE DATE/TIME: 01/21/21 @ 10:30 DISCHARGE LOCATION: [facility]: [address], [place] (Site Operations Manager Albina Sevilla: [phone]). MODE OF TRANSPORT: [facility] IM SIGNED (Y/N): FORMS ON CHART (Y/N): Y- COLST, [facility], Ambulance ACCEPTING MD AND NUMBER: No call necessary. RN REPORT/UNIT: Please call report to [phone]. Prescriptions: For discharge to [facility], please send patient with hard copy prescriptions for any controlled medications. PATIENT AWARE AND IN AGREEMENT OF PLAN: Y FAMILY NOTIFIED (IF APPLICABLE- Y/N): Y- pt's brother Terry and spouse Nguyen informed of discharge plan. INSTANTIZER OPERATOR/CHARGE/MD NOTIFIED (Y/N): Y COVID TEST: Ordered 01/20/21 Mars Ledezma RN, PROTECTION CHIEF [employer], [facility] Pager # [phone] * Mars Ledezma - 01/19/2021 1415 EST Case Management Note: Recommended Discharge Destination: [facility]. Pt has been offered placement at [facility]. This editorial writer called and spoke with tool coordinator Albina Sevilla ([phone]). They can accept pt on Sunday 01/21 depending on approval of Prior Auth which has been submitted to pt's insurance. This editorial writer met with pt at bedside. Provided him with NICHOLE update. He was excited to hear about the offer from [facility] and accepted readily. He is aware it is contingent on approval of Prior Auth. He asked that I inform his ex-spouse Nguyen and his brother Terry Scott about [facility] offer and discharge plan. Will continue to follow for discharge planning. Mars Ledezma RN, [employer]OTE[employer], [facility] Pager # [phone] * Lewis Davis MD - 01/19/2021 0648 [...] NICHOLE. Plan Hypoglycemia: improved Type 2 Diabetes, MANAGER [employer] SALES regimen of 45 units glargine daily with 10 units lispro with meals; YpbsqhbpxaU7Q 13.9 - Continue glargine to 30 units [...] -Pain control - Tylenol 1000 q6 PRN, MANAGER [employer] SALES tramadol - Robaxin 750mg q4 - D/c [...] extremity - Diagnosed in August 2020 - MANAGER [employer] SALES Eliquis 5mg BID Hypothyroidism - continue MANAGER [employer] SALES levothyroxine VTE Prophylaxis - MANAGER [employer]CH[employer] SALES Eliquis 5mg BID Discharge Plan PT recommending NICHOLE Consults Infectious Disease, Ortho, Med Psych, and Nutrition Desiree Marcano DO Internal Medicine, PGY-1 Pager [phone]/Cortex 01/19/21 6:48 Attending attestation: I have seen and examined the patient and agree with findings and plans as outlined in the resident's note above. Lewis Davis MD * Shlely Garcia, PT - 01/18/2021 1202 EST [facility] Therapy Acute Therapy [facility] Physical Therapy Encounter Note Date of Service: [...] the Therapy Session Comments: video monitor present, MEDICAL TRANSPORT SPECIALIST at bedside General Assessment: No problems noted [...] Notified: Nurse When: After therapy session By: [id number]-dl-pdrm communication Mobility and Gait: Mobility status, Encouraging [...] passive movement if slow and controlled : Ghislaine in place, draining bloody urine Pulses: 2+ [...] continue to run low Type 2 Diabetes, MANAGER [employer] SALES regimen of 45 units glargine daily with 10 units lispro with meals; VjoxljzbexX2Y 13.9 - Continue glargine to 30 units [...] -Pain control - Tylenol 1000 q6 PRN, MANAGER [employer] SALES tramadol - Robaxin 750mg q4 - Trial [...] extremity - Diagnosed in August 2020 - MANAGER [employer] SALES Eliquis 5mg BID Hypothyroidism - continue MANAGER TECH[employer] SALES levothyroxine VTE Prophylaxis - MANAGER TECH[employer] SALES Eliquis 5mg BID Discharge Plan PT recommending [...] month course of Eliquis for DVT in LLE) who presented for left leg pain, found [...] from 7AM-5PM page the Urology Service Pager #[phone] with questions. Nights and weekends, please page through PAS. Cosigned by Raman West MD at 01/18/2021 10:44 EST * Olga Alvarez CSW - 01/17/2021 1610 EST Case management note. DC planning update. RUBA spoke w/patient's Nguyen. She states that she has discussed post NICHOLE DC plan w/ his brother Terry. She and Terry agree that given the stairs in her home combined with patient's impulsivity and lack of 24/7 supervision, staying at her home after NICHOLE discharge is not a safe option for patient at this time. RUBA will update patient tomorrow. Lupe Alvarez, [id number] clinical pharmacy manager II, shredder operator * Shelly Garcia, PT - 01/17/2021 8014 EST [facility] Therapy Acute Therapy [facility] Physical Therapy Contact Note Date of Service: 01/17/2021 Attempted to see patient this afternoon but he declined due to pain and fatigue. Patient appears kelly a component of anxiety related to mobility and the potential for pain, therefore recommend Med psych consult. Will follow-up per plan of care. Shelly Garcia, PT 01/17/2021 15:54 * Jordyn Linares, RN - 01/17/2021 5303 EST Data:??Assumed care of pt at 0700. Pt a/ox3, with short term memory issues. Pt c/o 8-12/12 pain in L hip. Scanlon catheter in [...] continue to run low Type 2 Diabetes, MANAGER TECH[employer] SALES regimen of 45 units glargine daily with 10 units lispro with meals; RpepwjnucwS9Y 13.9 - Decrease glargine to 30 units [...] - Have been unable to connect with [facility] [place] regarding hip injection, will continue to reach out - improving control on current regimen - Tylenol 1000 q6 PRN, MANAGER TECH[employer] SALES tramadol - Robaxin 750mg q4 - Trial [...] extremity - Diagnosed in August 2020 - MANAGER TECH[employer] SALES Eliquis 5mg BID Hypothyroidism - continue MANAGER TECHN[employer] SALES levothyroxine VTE Prophylaxis - MANAGER TECHNICAL SALES Eliquis 5mg BID Discharge Plan PT recommending [...] continue to run low Type 2 Diabetes, MANAGER TECH[employer] SALES regimen of 45 units glargine daily with 10 units lispro with meals; VbtpnrxupbA0H 13.9 - Decrease glargine to 35 units [...] - Have been unable to connect with [facility] radiology regarding hip injection, will continue to reach out - improving control on current regimen - Tylenol 1000 q6 PRN, MANAGER TECH[employer] SALES tramadol - Robaxin 750mg q4 - lidocaine [...] extremity - Diagnosed in August 2020 - MANAGER TECH[employer] SALES Eliquis 5mg BID Hypothyroidism - continue MANAGER TECHN[employer] SALES levothyroxine VTE Prophylaxis - MANAGER TECHNICAL SALES Eliquis 5mg BID Discharge Plan PT recommending NICHOLE Consults Infectious Disease, Ortho, Med Psych, and Nutrition Desiree Marcano DO Internal Medicine, PGY-1 Pager [phone]/Cortex 01/16/21 7:24 Cosigned by Ti Maloney MD at 01/16/2021 22:53 EST Associated attestation - Ti Maloney MD - 01/16/2021 2253 EST I interviewed and examined the patient. [...] with short term memory issues. Pt c/o 8-1010 pain in Lhip. Pt has not voided, [...] last 24 hours, asymptomatic Type 2 Diabetes, MANAGER TE[employer] SALES regimen of 45 units glargine daily with 10 units lispro with meals; LvojgdyyzzP3Z 13.9 - Decrease glargine to 40 units [...] - Have been unable to connect with [facility] radiology regarding hip injection, will continue to reach out - improving control on current regimen - Tylenol 1000 q6 PRN, MANAGER TECHN[employer] SALES tramadol - Robaxin 750mg q4 - lidocaine [...] extremity - Diagnosed in August 2020 - MANAGER TECHNICAL SALES Eliquis 5mg BID Hypothyroidism - continue MANAGER TECHNICAL SALES levothyroxine VTE Prophylaxis - MANAGER TECHNICAL SALES Eliquis 5mg BID Discharge Plan PT recommending [...] voice mail from pt's ex-spouse Nguyen Scott ([phone]). This editorial writer called her back and left another message. For the purposes of NICHOLE placement, we need to confirm that pt can return to live with Nguyen after NICHOLE (please see previous CM note). Will continue to follow for disc harge planning. Mars Ledezma RN, PROTE[employer] CHIEF [employer], [facility] Pager # [phone] * Robbie Brown MD - 01/14/2021 0987 EST INFECTIOUS DISEASES PROGRESS NOTE Patient: Jeff [...] LABORATORY: Reviewed in detail in PRISM. WBC/RBC/HGB/HCT/PLT/ANC9.80/3.17/9.7/28.6/362/-- (01/14 0536) Estimated Creatinine Clearance: 179.6 mL/min (A) (by [...] with severe joint space narrowing resulting in atcz-gf-kaks as well as subchondral sclerosis and cyst [...] ortho and CT without fluid collection, fracture. [place] to be OA flare by ortho. 3. Diabetes 4. Has TBI RECOMMENDATIONS: -- Cefazolin 2 grams every 8 hours, needs 4 wks from [facility] on 12/24 (last day is 01/20) Recommendations [...] last 24 hours, asymptomatic Type 2 Diabetes, MANAGER TECHNICAL SALES regimen of 45 units glargine daily with 10 units lispro with meals; OetyweapsgI9G 13.9 Had low blood sugars this afternoon [...] - Have been unable to connect with [facility] [place]ology regarding hip injection, will continue to reach out - improving control on current regimen - Tylenol 1000 q6 PRN, MANAGER TECHNICAL SALES tramadol - Robaxin 750mg q4 - lidocaine [...] extremity - Diagnosed in August 2020 - MANAGER TECHNICAL SALES Eliquis 5mg BID Hypothyroidism - continue MANAGER TECHNICAL SALES levothyroxine VTE Prophylaxis - MANAGER TECHNICAL SALES Eliquis 5mg BID Discharge Plan PT recommending NICOHLE Consults Infectious Disease, Ortho, Med Psych, and Nutrition SEA GOMEZ MD, PGY-2, Pager [phone] 01/14/2021 7:20 Cosigned by Ti Maloney MD [...] last 24 hours, asymptomatic Type 2 Diabetes, MANAGER TECHNICAL SALES regimen of 45 units glargine daily with 10 units lispro with meals; JfxbaceyqxS6T 13.9 Had low blood sugars this afternoon [...] - Have been unable to connect with [facility] [place]ology regarding hip injection, will continue to reach out - improving control on current regimen - Tylenol 1000 q6 PRN, MANAGER TECHNICAL SALES tramadol - Robaxin 750mg q4 - lidocaine [...] extremity - Diagnosed in August 2020 - MANAGER TECHNICAL SALES Eliquis 5mg BID Hypothyroidism - continue MANAGER TECHNICAL SALES levothyroxine VTE Prophylaxis - MANAGER TECHNICAL SALES Eliquis 5mg BID Discharge Plan PT recommending [...] diabetic and had low sugars during day 01/12. Pt also has video monitor in room due to slipping from bed to the floor during the day as well. Pt report of severe 10/10 left hip pain. Action: All medications given as per MAY. PRN morphine given. Blood sugar checked at 0000 to be 66.MD notified and apple juice was given. After [...] Seizure Activity?: No. Dr. Gomez notified @ 1630. Manager Video Nurse Contracts Advisor notified @ 6840. Action: Patient assisted back to bed after [...] monitor. KRYSTAL ALONSO RN 01/12/2021 16:48 * Sea Gomez MD - 01/12/2021 1621 EST Brief [...] 01/12/2021 1621 Last data filed at 01/11/2021 2045 Gross per 24 hour Intake 120 ml [...] 16:21 * Krystal Alonso RN - 01/12/2021 1545 EST Data: Assumed care at 0700. PT [...] found on the ground at 1630, unwitnessed MD selena notified. Before lunch PT had a blood [...] listed for all facilities in the following [facility]: [facility], and [place]. He has not had any bed offers to date. This editorial writer spoke with [facility] tool coordinator Millie to discuss pt's candidacy. They cannot accommodate IV abx q8 hr (IV cefazolin q[address], however last dose is scheduled 01/20). Millie also wants to confirm pt's discharge plan s/p [facility]. Pt's plan is to go back to live with his ex-spouse Nguyen in [place] after discharge from [facility]. Millie would like confirmation from pt's ex-spouse that he can return. If so, they could consider him for admission. Met with pt at bedside for check in. Provided him with [facility] update and informed him that [facility] is following. Pt reports he would be willing to go to [facility] if they accept him. It is still hisintention to return live with Nguyen after he discharges from [facility]. He continues to report he feels safe with Nguyen. He gave this editorial writer permission to speak with Nguyen to confirm that he can return. This editorial writer called and left a message for pt's ex-spouse Nguyen Scott requesting call back. Will continue to follow for discharge planning. Mars Ledezma RN, [facility], [facility] Pager # [phone] * Debby Morataya - 01/12/2021 1307 EST [...] - Will continue automatic meal trays Debby Bradford) Hood, KAUSHAL, CD, CNSC (Call PAS or use Intelliweb to page RD covering this unit) * Desiree Marcano - 01/12/2021 0641 EST Medicine Progress Note [...] inpatient hip injection this week once order hasbeen submitted - improving control on current regimen - Tylenol 1000 q6 PRN, MANAGER TECHNICAL SALES tramadol - Robaxin 750mg q4 - lidocaine [...] basal adjustment. Continue to monitor for improvement. MANAGER TECHNICAL SALES regimen of 45 units glargine daily with [...] extremity - Diagnosed in August 2020 - MANAGER TECHNICAL SALES Eliquis 5mg BID Hypothyroidism - continue MANAGER TECHNICAL SALES levothyroxine VTE Prophylaxis - MANAGER TECHNICAL SALES Eliquis 5mg BID Discharge Plan PT recommending [...] Duration of Session: 31 Minutes Session Type: 42709: Psychotherapy, 16-37 minutes with patient Problem: Jeff [...] have any questions. ?? Nena Allison M.S. Infrastructure Analyst Pager #: [phone] Cosigned by Patrica Lui, PhD at 01/12/2021 15:47 EST Associated attestation - Patrica Lui, PhD - 01/12/2021 5657 EST I have read and reviewed this note. Clinical supervision will include discussion of this session. Iconcur with the seo intern's findings and treatment plan. Services provided were routine and within thecompetence of this seo intern. Patrica Lui, Ph.D. Licensed Psychologist-Doctorate Clinical Degreasing Wheel Operator * Desiree Marcano, - 01/11/2021 0656 EST Medicine Progress Note [...] inpatient hip injection this week once order hasbeen submitted - improving control on current regimen - Tylenol 1000 q6 PRN, MANAGER TECHNICAL SALES tramadol - Robaxin 750mg q4 - lidocaine [...] basal adjustment. Continue to monitor for improvement. MANAGER TECHNICAL SALES regimen of 45 units glargine daily with [...] extremity - Diagnosed in August 2020 - MANAGER TECHNICAL SALES Eliquis 5mg BID Hypothyroidism - continue MANAGER TECHNICAL SALES levothyroxine VTE Prophylaxis - MANAGER TECHNICAL SALES Eliquis 5mg BID Discharge Plan PT recommending [...] Js Meza MD 01/11/2021 6:56 * Nikia Ramirez RN - 01/10/2021 1541 EST Data: Patient [...] Garcia, PT - 01/10/2021 1433 EST [facility] Therapy Acute Therapy [facility] Physical Therapy Encounter Note Date of Service: [...] to therapy session, After therapy session By: [id number] communication Mobility and Gait: Mobility status, Encouraging [...] Shelly Garcia, PT 01/10/2021 14:49 * Desiree Marcano DO - 01/10/2021 0705 EST Medicine Progress Note [...] current regimen - Tylenol 1000 q6 PRN, MANAGER TECHNICAL SALES tramadol - Robaxin 750mg q4 - lidocaine [...] basal adjustment. Continue to monitor for improvement. MANAGER TECHNICAL SALES regimen of 45 units glargine daily with [...] extremity - Diagnosed in August 2020 - MANAGER TECHNICAL SALES Eliquis 5mg BID Hypothyroidism - continue MANAGER TECHNICAL SALES levothyroxine VTE Prophylaxis - MANAGER TECHNICAL SALES Eliquis 5mg BID Discharge Plan PT recommending [...] Blue). Ti Maloney MD 01/10/21 * Mulugeta Morales, JARVIS - 01/09/2021 1841 EST [id number] Data: Pt is POD 9 R BKA [...] * Repp, Tj Herron MD - 01/09/2021 0750 EST Medicine Progress Note Service Date: 01/09/2021 [...] line is still required. Labs Recent Labs 01/07/2155501/09/21546 WBC 8.72 7.29 RBC 3.14* 3.29* HGB 9.5* 9.7* HCT 28.9* 29.7* MCV 92 90 MCH 30.3 29.5 MCHC 32.9 32.7* PLT 396* 375 Recent Labs 01/07/2155501/09/21546 NA 136 134* K 4.7 4.5 CL [...] inpatients - Contact has been made with [facility] radiology who are amenable to inpatient hip injection this week once order has been submitted - improving control on current regimen - Tylenol 1000 q6 PRN, MANAGER TECHNICAL SALES tramadol - Robaxin 750mg q4 - lidocaine [...] basal adjustment. Continue to monitor for improvement. MANAGER TECHNICAL SALES regimen of 45 units glargine daily with [...] extremity - Diagnosed in August 2020 - MANAGER TECHNICAL SALES Eliquis 5mg BID Hypothyroidism - continue MANAGER TECHNICAL SALES levothyroxine VTE Prophylaxis - MANAGER TECHNICAL SALES Eliquis 5mg BID Discharge Plan PT recommending [...] Mulugeta Morales RN - 01/08/2021 1358 EDT [id number] Data: Pt is POD 8 R BKA [...] cath'ed x1 at 1100 for 825ml. DTV [id number], order to place scanlon if still retaining. Response: Safety maintained. Plan of care progressing. MULUGETA MORALES RN 01/08/2021 11:12 * Tj Hitchcock MD - 01/08/2021 0724 EDT Medicine Progress Note Service Date: 01/08/2021 [...] mobility and also preparing for discharge to [facility]. We will continue to titrate his insulin [...] do joint injections on inpatients, will contact [facility] radiology to see if they would recommend an injection into the hip/bursa - improving control on current regimen - Tylenol 1000 q6 PRN, MANAGER TECHNICAL SALES tramadol - Robaxin 750mg q4 - lidocaine [...] basal adjustment. Continue to monitor for improvement. MANAGER TECHNICAL SALES regimen of 45 units glargine daily with [...] extremity - Diagnosed in August 2020 - MANAGER TECHNICAL SALES Eliquis 5mg BID Hypothyroidism - continue MANAGER TECHNICAL SALES levothyroxine VTE Prophylaxis - MANAGER TECHNICAL SALES Eliquis 5mg BID Discharge Plan PT recommending [...] Case Management Note: Recommended Discharge Destination: [facility]. Pt has been listed in [facility]. He has not received any bed offers to date ([facility] bed availability is tight). This editorial writer left messages with all four admission coordinators at the following local facilities: [facility], and [place]. They do not have bed availability at this time but will continue to follow. This editorial writer met with pt at bedside for check in: - Discussed difficulty with finding local [facility] placement and expanding the search to neighboring counties. Pt in agreement. He agreed to expand the search to [facility], and [facility] to start. This editorial writer submitted new clinical notes to [facility] and the search was expanded to include all SARs in the listed counties above. 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 Pt reports he will call the gaming investigator to clarify. - It is still pt's intention to live with his ex-spouse Nguyen in [place] after discharge from [facility].He reports he will continue to live there until he finds another apartment. Pt reports Nguyen is in support and on board with this plan. He reports he feels safe at home with Nguyen and that they are civil. Will continue to follow for discharge planning. Mars Ledezma RN, [employer], [facility] Pager # [phone] * Repp, Tj Herron MD - 01/07/2021 [...] 32.9 PLT 388* 394* 396* Recent Labs 01/05/2154401/06/2162801/07/21 0556 NA 138 135* 136 K 4.7 [...] and al so preparing for discharge to [facility]. We will continue to titrate his insulin [...] do joint injections on inpatients, will contact [facility]ology to see if they would recommend an injection into the hip/bursa - improving control on current regimen - Tylenol 1000 q6 PRN, MANAGER [employer] SALES tramadol - Robaxin 750mg q4 - lidocaine [...] basal adjustment. Continue to monitor for improvement. MANAGER [employer] SAL[employer] regimen of 45 units glargine daily with [...] extremity - Diagnosed in August 2020 - MANAGER [employer] SALES Eliquis 5mg BID Hypothyroidism - continue MANAGER [employer] SALES levothyroxine VTE Prophylaxis - MANAGER TECH[employer] SALES Eliquis 5mg BID Discharge Plan PT recommending [...] week. Prescribed DM meds on file per [facility]: Metformin 500 mg BID sitagliptin 100 [...] challenging. He saw a dietitian with the [facility] for several years ([phone]), recommend resuming these visits. His diet recall [...] line is still required. Labs Recent Labs 01/04/2163401/05/21 0545 01/06/21 0629 WBC 12.41* 7.06 8.60 RBC 3.10* 2.99* 3.18* HGB 9.5* 9.3* 9.5* HCT 28.3* 28.4* 29.4* MCV 91 95 93 MCH 30.6 31.1 29.9 MCHC 33.6 32.7* 32.3* PLT 407* 388* 394* Recent Labs 01/04/2135 01/05/21 0545 01/06/21 0629 NA 134* 138 135* K 4.8 4.7 [...] and al so preparing for discharge to [facility]. We will continue to titrate his insulin [...] do joint injections on inpatients, will contact [facility]ology to see if they would recommend an injection into the hip/bursa - improving control on current regimen - Tylenol 1000 q6 PRN, MANAGER [employer] SALES tramadol - Robaxin 750mg q4 - lidocaine [...] basal adjustment. Continue to monitor for improvement. MANAGER [employer] SAL[employer] regimen of 45 units glargine daily with [...] extremity - Diagnosed in August 2020 - MANAGER [employer] SALES Eliquis 5mg BID Hypothyroidism - continue MANAGER TECH[employer] SALES levothyroxine VTE Prophylaxis - MANAGER TE[employer] SALES Eliquis 5mg BID Discharge Plan PT recommending [facility] Consults Infectious Disease, Ortho, Med Psych, and Nutrition Uri Miller, MS3 I was present with the medical student for the history, exam, and medical decision making documented. I have edited the medical student note as appropriate. Desiree Marcano DO 01/06/2021 16:59 ATTENDING ATTESTATION: Date [...] EDT Case Management Note: Recommended Discharge Destination: [facility]. Pt has been listed in [facility]. Pain management s/p BKA in process and it is anticipated that pt will be cleared for discharge in a few days as plan is solidified. New clinical notes submitted to [facility]. This editorial writer left messages with admission coordinators at the following facilities: [facility], [facility], and [place]. Will continue to follow for discharge planning. Mars Ledezma RN, [employer], [facility] Pager # [phone] * Tj Hitchcock MD - 01/05/2021 0722 [...] do joint injections on inpatients, will contact [facility] radiology to see if they would recommend an injection into the hip/bursa - improving control on current regimen - Tylenol 1000 q6 PRN, MANAGER [employer] SALES tramadol - Robaxin 750mg q4 - lidocaine [...] hyperglycemia and persistently elevated AM fasting levels MANAGER [employer] SAL[employer] regimen of 45 units glargine daily with [...] extremity - Diagnosed in August 2020 - MANAGER [employer] SALES Eliquis 5mg BID Hypothyroidism - continue MANAGER [employer] SALES levothyroxine VTE Prophylaxis - MANAGER [employer] SALES Eliquis 5mg BID Discharge Plan PT recommending [facility] Consults Infectious Disease, Ortho, Med Psych, and Nutrition Uri Miller, MS3 I was present with the medical student for the history, exam, and medical decision making documented. I have edited the medical student note as appropriate in underline Desiree Marcano DO 01/05/2021 13:09 ATTENDING ATTESTATION: Date [...] 13:57 * Shelly Garcia, PT - 01/04/2021 1405 EDT [facility] Therapy Acute Therapies [facility] Physical Therapy Encounter Note Date of Service: [...] other consults recommended at this time Pager: [phone] Shelly Garcia, PT 01/04/2021 14:05 * Andres Hewitt RN - 01/04/2021 0937 EDT PROGRESS NOTES Data: Patient is POD #5 s/p right BKA. Pt complaining of left hip pain, right leg pain. Medication administered per MAR. A&O x 3 with intermittent confusion. Able to make needs known to staff. [id number], 12/12 left hip pain managed with pain medication per MAY. Action: Medication administered per MAY. Hourly rounding performed. ?? Response: Medications and meals tolerated well. Call larson within reach. Needs met at this time. Will continue to monitor ANDRES HEWITT RN 01/04/2021 9:37 * Tj Hitchcock MD - 01/04/2021 0789 EDT Medicine Progress Note Service Date: 01/04/2021 [...] mild right trochanteric bursitis demonstrated on thewide enjdf-ft-vfbj coronal images. Assessment/Plan Assessment Jeff Scott is [...] current regimen - Tylenol 1000 q6 PRN, MANAGER [employer] SALES tramadol - Robaxin 750mg q4 - lidocaine [...] on home insulin, poorly controlled, with hyperglycemia MA[employer] regimen of 45 units glargine daily with [...] extremity - Diagnosed in August 2020 - MANAGER [employer] SALES Eliquis 5mg BID Hypothyroidism - continue MANAGER [employer] SALES levothyroxine VTE Prophylaxis - MANAGER [employer] SALES Eliquis 5mg BID Discharge Plan Pending clinical [...] Able to make needs known to staff. [id number], 1010 left hip pain managed with pain medication [...] Garcia, PT - 01/03/2021 0959 EDT [facility] Therapy Acute Therapy [facility] Physical Therapy Contact Note Date of Service: [...] per plan of care. Shelly Garcia, PT 01/03/2021 9:59 * Tj Hitchcock MD - 01/03/2021 0765 EDT Medicine Progress Note Service Date: 01/03/2021 [...] mild right trochanteric bursitis demonstrated on thewide zkiuj-zx-nmvs coronal images. Assessment/Plan Assessment Jeff Scott is [...] current regimen - Tylenol 1000 q6 PRN, MANAGER [employer] SALES tramadol - Robaxin 750mg q4 - lidocaine patch daily - increased Schedule Dilaudid PO 2-4 mg q3hrs -increase gabapentin from 100 mg tid to 200 mg tid (done) - no acute plans from ortho regarding osteoarthritis management - follow up on Sunday regarding arthroplasty plans from ortho - Limit weightbearing of LLE - Physical Therapy as able Type 2 Diabetes [employer] regimen of 45 units glargine daily with [...] extremity - Diagnosed in August 2020 - MANAGER [employer] Eliquis 5mg BID Hypothyroidism - continue MANAGER [employer] SALES levothyroxine VTE Prophylaxis - MANAGER [employer] SALES Eliquis 5mg BID Discharge Plan Pending clinical [...] The line is still required. Medications - MANAGER TE[employer] SALES Levothyroxine 112mcg daily - MANAGER [employer] SALES Eliquis 5mg BID (holding prior to surgery) - MANAGER [employer] SALES Metformin (holding) - MANAGER TE[employer] SALES Sitagliptin (holding) - MANAGER [employer] SALES Tramadol 50mg BID PRN - MANAGER [employer] SALES Insulin glargine 45 units sub q nightly - MANAGER [employer]ES Insulin lispro 10 units sub q with meals (holding) - MANAGER TE[employer] SALES Atorvastatin 20mg daily Labs Recent Labs 12/31/20 0646 01/01/21 0612 01/02/21 0529 WBC 8.45 9.61 9.36 RBC 3.21* 3.17* 3.09* HGB 9.8* 9.6* 9.2* HCT 29.0* 28.9* 28.1* MCV 90 91 91 MCH 30.5 30.3 29.8 MCHC 33.8 33.2 32.7* PLT 315 375 354 Recent Labs 12/31/20 0646 01/01/21 0612 01/02/21 0529 NA 136 135* 134* K 4.3 4.3 [...] with severe joint space narrowing resulting in wbes-hk-cokq as well as subchondral sclerosis and cyst [...] mild right trochanteric bursitis demonstrated on thewide tzbii-br-qcqz coronal images. Assessment/Plan Assessment Jeff Scott is [...] current regimen - Tylenol 1000 q6 PRN, MANAGER [employer] SALES tramadol - Robaxin 750mg q4 - lidocaine [...] Physical Therapy as able Type 2 Diabetes MANAGER [employer] SALES regimen of 45 units glargine daily with [...] extremity - Diagnosed in August 2020 - MANAGER TE[employer] SALES Eliquis 5mg BID Hypothyroidism - continue MANAGER TE[employer] SALES levothyroxine VTE Prophylaxis - MANAGER TECH[employer] SALES Eliquis 5mg BID Discharge Plan Pending clinical [...] 14:58 * Seeker, MD Js - 01/01/2021 1114 EDT Orthopaedic Progress Note PROBLEM: Right transtibial [...] Js Meza MD 01/01/2021 11:16 * Sachin Castle MD - 01/01/2021 1007 EDT Name:Jeff Scott [...] to be pushed at acute rehab over [facility], but we also discussed that his hip [...] The line is still required. Medications - MANAGER TE[employer] SALES Levothyroxine 112mcg daily - MANAGER TE[employer] SALES Eliquis 5mg BID (holding prior to surgery) - MANAGER TE[employer] SALES Metformin (holding) - MANAGER [employer] SALES Sitagliptin (holding) - MANAGER TECH[employer]ICAL SALES Tramadol 50mg BID PRN - MANAGER TECH[employer] SALES Insulin glargine 45 units sub q nightly - MANAGER [employer] SALES Insulin lispro 10 units sub q with meals (holding) - MANAGER TE[employer]ICAL SALES Atorvastatin 20mg daily Labs Recent Labs 12/30/20 0612/31/20 0646 01/01/21 0612 WBC 11.80* 8.45 9.61 RBC 2.99* 3.21* 3.17* HGB 9.4* 9.8* 9.6* HCT 27.4* 29.0* 28.9* MCV 92 90 91 MCH 31.4 30.5 30.3 MCHC 34.3 33.8 33.2 PLT 333 315 375 Recent Labs 12/30/20 0619 12/31/20 0646 01/01/21 0612 NA 134* 136 135* [...] with severe joint space narrowing resulting in txuq-fh-thai as well as subchondral sclerosis and cyst [...] mild right trochanteric bursitis demonstrated on thewide tanty-ts-gmnz coronal images. Assessment/Plan Assessment Jeff Scott is [...] current regimen - Tylenol 1000 q6 PRN, MANAGER [employer] SALES tramadol - Robaxin 750mg q4 - lidocaine [...] his other leg. Type 2 Diabetes - MANAGER [employer] SALES regimen of 45 units glargine daily with [...] extremity - Diagnosed in August 2020 - MANAGER [employer] SALES Eliquis 5mg BID Hypothyroidism - continue MANAGER TE[employer] SALES levothyroxine VTE Prophylaxis - MANAGER TECH[employer] SALES Eliquis 5mg BID Discharge Plan Pending clinical improvement, will d/c to acute rehab vs [facility]. Case management is working on placement at this time. Will likely benefit from acute rehab post-op and he would prefer acute rehab over [facility]. Waiting for PT eval to proceed with discharge planning. Consults Infectious Disease, Ortho, Med Psych, and Nutrition Uri Miller MS3 01/01/2021 11:46 I was present with [...] Problems Diagnosis ??? *Diabetic foot infection (HCC-CMS) ([facility]) ??? Ketoacidosis ??? Deep vein thrombosis (DVT) of proximal vein of left lower extremity, unspecified chronicity (HCC-CMS) (HCC) ??? Type 2 diabetes mellitus without complication, with long-term current use of insulin (HCC-CMS) (HCC) ??? 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 (HCC-CMS) ([facility]) Reason for PICC line: Antibiotics Recommendations: Single [...] by PICC RN. CHAGO LEON RN * Js Meza MD - 12/31/2020 1225 EDT Orthopaedic Progress Note [...] right foot wound. 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 Scott reports he [...] No, PICC/Central line not present. Medications - MANAGER TECH[employer] SALES Levothyroxine 112mcg daily - MANAGER TECHNICAL SALES Eliquis 5mg BID (holding prior to surgery) - MANAGER TECH[employer]ICAL SALES Metformin (holding) - MANAGER TECHNICAL SALES Sitagliptin (holding) - MANAGER TECHNICAL SALES Tramadol 50mg BID PRN - MANAGER TECHNICAL SALES Insulin glargine 45 units sub q nightly - MANAGER TECHNICAL SALES Insulin lispro 10 units sub q with meals (holding) - MANAGER TECHNICAL SALES Atorvastatin 20mg daily Labs Recent Labs 12/29/20 0728 12/30/20 0619 12/31/20 0646 WBC 8.65 11.80* 8.45 RBC 3.64* 2.99* 3.21* HGB 10.8* 9.4* 9.8* HCT 32.3* 27.4* 29.0* MCV 89 92 90 MCH 29.7 31.4 30.5 MCHC 33.4 34.3 33.8 PLT 319 333 315 Recent Labs 12/29/20 0728 12/30/20 0619 12/31/20 0646 NA 136 134* 136 K 4.0 [...] with severe joint space narrowing resulting in tmrz-ty-jlwo as well as subchondral sclerosis and cyst [...] mild right trochanteric bursitis demonstrated on thewide uqiwq-ws-bdsq coronal images. Assessment/Plan Assessment Jeff Scott is [...] time. They are okay with restarting his MANAGER [employer] SAL[employer] Eliquis as they have no plans for [...] current regimen - Tylenol 1000 q6 PRN, MANAGER TE[employer] SALES tramadol - Robaxin 750mg q4 - lidocaine patch daily - Schedule Dilaudid PO 2mg q4hrs - Recommended icing hip for bursitis - MRI hip showing osteoarthritis, torn labrum,trochaneteric bursitis and possible myositis of nonspecific etiology, plan to ask ortho about this - no acute plans from ortho regarding osteoarthritis management - Physical Therapy as able Type 2 Diabetes - MANAGER TE[employer] SALES regimen of 45 units glargine daily with [...] 2020 - D/c therapeutic lovenox and restart MANAGER [employer] SALES Eliquis 5mg BID per ortho Hypothyroidism - continue MANAGER TECH[employer]ICAL SALES levothyroxine VTE Prophylaxis - D/C'd MANAGER TECHNICAL SALES Eliquis due to surgery - D/c therapeutic lovenox and restart MANAGER [employer] SALES Eliquis 5mg BID per ortho Discharge Plan [...] Reviewed in detail in PRISM. WBC/RBC/HGB/HCT/PLT/ANC11.80/2.99/9.4/27.4/333/-- (12/30 618) Cr 0.74 MICROBIOLOGY DATA: Reviewed in detail [...] with severe joint space narrowing resulting in tjpq-bp-osjx as well as subchondral sclerosis and cyst [...] Needs: 23-25 kcal/kg (using 89 kg) = 6678-3714 kcals/day 1.2 g/kg protein (using 89 kg) = 110 g protein/day 30 mL/kg fluid (using 89 kg) = 2670 mL fluid/day or per MD recs Estimated Nutrition Intake: 75-100% of meals recorded [...] No, PICC/Central line not present. Medications - MANAGER TECH[employer]ICAL SALES Levothyroxine 112mcg daily - MANAGER TECHNICAL SALES Eliquis 5mg BID (holding prior to surgery) - MANAGER TECHNICAL SALES Metformin (holding) - MANAGER TECH[employer]ICAL SALES Sitagliptin (holding) - MANAGER TECHNICAL SALES Tramadol 50mg BID PRN - MANAGER TECHNICAL SALES Insulin glargine 45 units sub q nightly - MANAGER [employer] SALES Insulin lispro 10 units sub q with meals (holding) - MANAGER TECHNICAL SALES Atorvastatin 20mg daily Labs Recent Labs 12/28/20 [...] with severe joint space narrowing resulting in mwyo-is-mxvb as well as subchondral sclerosis and cyst [...] mild right trochanteric bursitis demonstrated on thewide xxomj-cg-gllp coronal images. Assessment/Plan Assessment Jeff Scott is [...] current regimen - Tylenol 1000 q6 PRN, MANAGER [employer] SALES tramadol - Robaxin 750mg q4 - lidocaine patch daily - Schedule Dilaudid PO 2mg q4hrs - MRI hip showing osteoarthritis, torn labrum,trochaneteric bursitis and possible myositis of nonspecific etiology, plan to ask ortho about this - Physical Therapy as able Type 2 Diabetes - MANAGER [employer] SALES regimen of 45 units glargine daily with [...] bleeding risk post-op allows. Hypothyroidism - continue MANAGER TECH[employer] SALES levothyroxine VTE Prophylaxis - D/C'd MANAGER TECHNICAL SALES Eliquis due to surgery - Resume Therapeutic Lovenox 1mg/kg BID Discharge Plan Pending clinical improvement, will d/c to acute rehab vs [facility]. Case management aware and working on placement. Consults Infectious Disease, Ortho, Med Psych, and Nutrition Uri Angela, MS3 12/30/2020 12:46 I was present with [...] 15:43 * Linda Wall MD - 12/29/2020 7817 EDT INFECTIOUS DISEASES CONSULT SERVICE PROGRESS NOTE [...] Reviewed in detail in PRISM. WBC/RBC/HGB/HCT/PLT/ANC8.65/3.64/10.8/32.3/319/-- (12/29 0728) Cr 0.53 MICROBIOLOGY DATA: Reviewed in detail [...] with severe joint space narrowing resulting in fypf-hr-awon as well as subchondral sclerosis and cyst [...] Linda Wall MD, MPH Infectious Disease * Stanley Tillman [...] No, PICC/Central line not present. Medications - MANAGER TECH[employer]ICAL SALES Levothyroxine 112mcg daily - MANAGER TECHNICAL SALES Eliquis 5mg BID (holding prior to surgery) - MANAGER TECHNICAL SALES Metformin (holding) - MANAGER TECHNICAL SALES Sitagliptin (holding) - MANAGER TECHNICAL SALES Tramadol 50mg BID PRN - MANAGER TECHNICAL SALES Insulin glargine 45 units sub q nightly - MANAGER TECHNICAL SALES Insulin lispro 10 units sub q with meals (holding) - MANAGER TECHNICAL SALES Atorvastatin 20mg daily Labs Recent Labs 12/27/20 0940 12/28/20 0712/29/20727 WBC 10.20 8.16 8.65 RBC 4.02* 3.58* 3.64* HGB 12.2* 10.6* 10.8* HCT 35.6* 31.4* 32.3* MCV 89 88 89 MCH 30.3 29.6 29.7 MCHC 34.3 33.8 33.4 PLT 335 294 319 Recent Labs 12/27/20 0940 12/28/20 0729 12/29/20727 NA 133* 134* 136 K 3.9 3.9 [...] with severe joint space narrowing resulting in tixc-bh-iyuf as well as subchondral sclerosis and cyst [...] w/o contrast Pending final read Assessment/Plan Assessment eJff Scott is a 60 y.o. male with [...] current regimen - Tylenol 1000 q6 PRN, MANAGER TECH[employer] SALES tramadol - Robaxin 750mg q4 - lidocaine patch daily - Dilaudid PO 2mg q4 PRN - Follow up MRI Hip completed this AM - Physical Therapy as able Type 2 Diabetes - MANAGER TE[employer] SALES regimen of 45 units glargine daily with [...] bleeding risk post-op allows. Hypothyroidism - continue MANAGER TECH[employer] SALES levothyroxine VTE Prophylaxis - D/C'd MANAGER TECH[employer] SALES Eliquis due to surgery - Therapeutic Lovenox 1mg/kg BID - Holding at this time, restart post-op when appropriate Discharge Plan Pending clinical improvement, will d/c to [facility]. Case management aware and working on placement. Consults Infectious Disease, Ortho, Med Psych, and Nutrition TOM Medley 12/29/2020 8:34 I was present with the [...] DP Diminished sensation in stocking glove distribution 5/5 AT, [facility] Labs: WBC/Hgb/Hct/Plts: 8.16/10.6/31.4/294 (12/28 728) Na/K/Cl/CO2: 134/3.9/99/28 (12/28 728) BUN/Cr/glu/ALT/AST/amyl/lip: 8/0.53/143/--/--/--/-- (12/28 728) PT/INR/PTT: 14.9/1.3/37 (12/28 140) A: Jeff Scott is a 60 y.o. with plan for transtibial amputation of RLE today. L hip pain pending repeat attempt at MRI today P: 1. WB - NWB RLE 2. Abx - Per ID 3. DVT prophylaxis - Held 4. PT/OT - Post op 5. Diet - NPO Js Meza MD 12/29/20 6:16 [id number] * Mars Ledezma - 12/28/2020 1121 EDT Case Management Note: Recommended Discharge Destination: [facility]. This editorial writer met with pt to discuss discharge. He reports after [facility] his intention is to return to his home in [place]. Although he is his are getting a divorce, he states they want to do so amicably. He will continue to live at home until he is able to find another place to live. He reports his is on board with this plan. Pt would like to be listed for the following [facility] in no particular order however his last choice would be [place]. - [facility] - [facility] - [place] Pt listed on [facility]. Will continue to follow for discharge planning. Mars Ledezma RN, [employer], [facility] Pager # [phone] * Stanley Tillman MD - 12/28/2020 0872 EDT Medicine Progress Note Service Date: 12/28/2020 [...] No, PICC/Central line not present. Medications - MANAGER TECH[employer]ICAL SALES Levothyroxine 112mcg daily - MANAGER TECHNICAL SALES Eliquis 5mg BID (holding prior to surgery) - MANAGER TECHNICAL SALES Metformin (holding) - MANAGER TECHNICAL SALES Sitagliptin (holding) - MANAGER TECHNICAL SALES Tramadol 50mg BID PRN - MANAGER TECHNICAL SALES Insulin glargine 45 units sub q nightly - MANAGER TECHNICAL SALES Insulin lispro 10 units sub q with meals (holding) - MANAGER TECHNICAL SALES Atorvastatin 20mg daily Labs Recent Labs 12/26/20 [...] with severe joint space narrowing resulting in gzrh-xi-bcph as well as subchondral sclerosis and cyst [...] current regimen - Tylenol 1000 q6 PRN, MANAGER TECH[employer] SALES tramadol - Robaxin 750mg q4 - lidocaine patch daily - Dilaudid PO 2mg q4 PRN - MRI ordered to evaluate persistent left hip pain - 2mg IV morphine prior to MRI for pain control - Physical Therapy as able Type 2 Diabetes - MANAGER TE[employer] SALES regimen of 45 units glargine daily with [...] bleeding risk post-op allows. Hypothyroidism - continue MANAGER TECH[employer] SALES levothyroxine VTE Prophylaxis - D/C'd MANAGER TECHNICAL SALES Eliquis due to surgery - Therapeutic Lovenox 1mg/kg BID - Hold PM dose and AM dose tomorrow as likely will go to the OR tomorrow afternoon Discharge Plan Pending clinical improvement, will d/c to [facility]. Case management aware and working on placement. [...] - 12/27/2020 1358 EDT Spiritual Care Department Pumper Gauger Note Re: Jeff Scott : 1960 [facility] Service: Adult Hospital Medicine Church: None Jeff has received a visit from the Spiritual Care Department on 12/27/2020. Assessment/Comments: Following manager student services self introduction, pt reaction was: Am I going to ? Pumper Gauger assured pt it isn't what the visit is all about. This moment, pt is sitting in a recliner and had brain tumor removed 17yrs ago. Pt said procedure affected memory/balance. Pt is here due to foot infection. Pt said things are heading toward a good direction. Pt is relaxed and welcomed visit. Pumper Gauger provided support/listening presence, offered prayer/hope. DEMOGRAPHICS Spiritual Care Welcomed End of Life Patient Is Bahai Importance Moderately Important Current Support System Caregivers Level of Support Strong Support ENCOUNTER DATA Date of Encounter 12/27/20 Time of Encounter 1335 Reason for Encounter Referral Referred by Self Care Level 4 - Significant Patient Concerns Reason not visited ENCOUNTER Needs Addressed Prayer Support, See Assessment/Comments Interventions Spiritual Counseling Sacraments Provided Date of Anointing Communion Date of Communion Date of Christian OUTCOME Outcome Stress Level Reduced Stress Outcome of Encounter Expressed Emotions, Needs Met, Patient Satisfied CARE PLAN Plan Patient/Family will Call if Needed Consult With No Consult Needed Additional Support See Assessments/Comments Was Clergy Needed? Yes, provided, Motorcoach Operator TIME STAMP: Total time spent minutes in direct floor time; >50% of time was spent in spiritual care. FRANK TORRES 12/27/2020 13:58 * Linda Wall MD - 12/27/2020 1295 EDT INFECTIOUS DISEASES CONSULT SERVICE PROGRESS NOTE [...] Reviewed in detail in PRISM. WBC/RBC/HGB/HCT/PLT/ANC10.20/4.02/12.2/35.6/335/-- (12/27 0940) Cr 0.60 MICROBIOLOGY DATA: Reviewed in detail [...] with severe joint space narrowing resulting in hssb-gx-exag as well as subchondral sclerosis and cyst [...] Linda Wall MD, MPH Infectious Disease * Keegan Nena - 12/27/2020 1317 EDT Psychotherapy Progress Note Name: Jeff Scott : 1960 Date of Service: 12/27/2020 Referring Provider: Jason Isaac* Primary Care Provider: Jason Batres MD (General) Start Time: 13:17 End Time: 14:02 Duration of Session: 45 Minutes Session Type: 58001: Psychotherapy, 38-52 minutes with patient Problem: Jeff [...] He has previously been connected with social work lecturer near his home which were helpful. Clinician [...] for additional social supports. Clinician cortexted pt's egg caser to coordinate care. Pt will likely benefit [...] you have any questions. Nena Allison M.S. Infrastructure Analyst Pager #: [phone] Cosigned by Patrica Lui, PhD at 12/28/2020 10:53 EDT Associated attestation - Patrica Lui, PhD - 12/28/2020 1053 EDT I have read and reviewed this note. Clinical supervision will include discussion of this session. Iconcur with the seo intern's findings and treatment plan. Services provided were routine and within thecompetence of this seo intern. Nena discussed potential need for reporting pt's statements to APS with me and plan is for a report to be made today Patrica Lui, Ph.D. Licensed Psychologist-Doctorate Clinical Degreasing Wheel Operator * Stanley Tillman MD - 12/27/2020 0943 [...] No, PICC/Central line not present. Medications - MANAGER TECHNICAL SALES Levothyroxine 112mcg daily - MANAGER TECHNICAL SALES Eliquis 5mg BID (holding prior to surgery) - MANAGER TECHNICAL SALES Metformin (holding) - MANAGER TECHNICAL SALES Sitagliptin (holding) - MANAGER TECHNICAL SALES Tramadol 50mg BID PRN - MANAGER TECHNICAL SALES Insulin glargine 45 units sub q nightly - MANAGER TECHNICAL SALES Insulin lispro 10 units sub q with meals (holding) - MANAGER TECHNICAL SALES Atorvastatin 20mg daily Labs Recent Labs 12/25/20 0803 12/26/20 0809 12/27/20 0940 WBC 10.58* 8.75 10. RBC 3.57* 3.73* 4.02* HGB 11.0* 11.7* [...] with severe joint space narrowing resulting in sefq-nz-zqrn as well as subchondral sclerosis and cyst [...] ortho, amputation this week. Will get d/c MANAGER TECHNICAL SALES Eliquis and transition to weight-basedLovenox in anticipation [...] current regimen - Tylenol 1000 q6 PRN, MANAGER TECHNICAL SALES tramadol - Robaxin 750mg q4 - lidocaine patch daily - Dilaudid PO 2mg q4 PRN Physical Therapy Type 2 Diabetes - MANAGER TECHNICAL SALES regimen of 45 units glargine daily with [...] bleeding risk post-op allows. Hypothyroidism - continue MANAGER TECHNICAL SALES levothyroxine VTE Prophylaxis - D/C MANAGER TECHNICAL SALES Eliquis due to surgery - Start Lovenox [...] 14:02 * Seeker, MD Js - 12/27/2020 0655 EDT Orthopedic brief foot and ankle note: [...] Garcia, PT - 12/26/2020 1430 EDT [facility] Therapy [facility] Physical Therapy Contact Note Date [...] functional outcome. Full note to follow. Shelly Garcia, PT 12/26/2020 14:30 * Shelly Garcia, PT - 12/26/2020 1430 EDT [facility] Rehabilitation [facility] Physical Therapy Initial Evaluation Note Date of [...] secondary to Ketoacidosis [E87.2] Diabetic foot infection ([facility]) ([facility]) [E11.628, L08.9] Type 2 diabetes mellitus without complication, with long-term current use of insulin ([facility]) ([facility]) [E11.9, Z79.4] Deep vein thrombosis (DVT) of proximal vein of left lower extremity, unspecified chronicity ([facility]) ([facility]) [I82.4Y2] The patient lives at [address] [facility] [address] [id number] Per HPI: Jeff Scott is a 60 [...] for all directions. Static standing in carmelita stedy for ~10 secs with emphasis on NWB [...] provided by physical therapist and/or physical therapist senior office assistant when medically appropriate. Frequency: 1-2 times [...] other consults recommended at this time Pager: [phone] Shelly Garcia, PT 12/26/2020 14:30 * Blake Staton MD - 12/26/2020 1082 EDT Medicine Progress Note Service Date: 12/26/2020 Admit Date: 12/22/2020 19:00 Reason for Admission: 60 y.o. male admitted with a chief complaint of left leg pain and now with a principal diagnosis of management of severe diabetic right foot wound. 24 Hour Events: Quiet day Subjective/Objective Subjective Mr. Sctot is with his cousin this morning. He [...] No, PICC/Central line not present. Medications - MANAGER TECHNICAL SALES Levothyroxine 112mcg daily - MANAGER TECHNICAL SALES Eliquis 5mg BID - MANAGER TECHNICAL SALES Metformin (holding) - MANAGER TECHNICAL SALES Sitagliptin (holding) - MANAGER TECHNICAL SALES Tramadol 50mg BID PRN - MANAGER TECHNICAL SALES Insulin glargine 45 units sub q nightly - MANAGER TECHNICAL SALES Insulin lispro 10 units sub q with [...] with severe joint space narrowing resulting in lthz-wn-lmes as well as subchondral sclerosis and cyst [...] current regimen - Tylenol 1000 q6 PRN, MANAGER TECHNICAL SALES tramadol - Robaxin 750mg q4 - lidocaine patch daily - Dilaudid PO 2mg q6 PRN Type 2 Diabetes - MANAGER TECHNICAL SALES regimen of 45 units glargine daily with [...] - Diagnosed in August 2020 - Continue MANAGER TECHNICAL SALES apixaban 5mg twice daily Hypothyroidism - continue MANAGER TECHNICAL SALES levothyroxine VTE Prophylaxis Continue MANAGER TECHNICAL SALES Eliquis Discharge Plan Pending clinical improvement Consults Infectious Disease and Nutrition Blake Staton MD 12/26/2020 19:11 Cosigned by Jeremías Baez MD at 12/26/2020 23:54 EDT Associated attestation - Jeremías Baez MD - 12/26/2020 1451 EDT I interviewed and examined the patient. I have personally reviewed interval events, laboratory data, and imaging. I discussed the case with the inpatient resident team. I agree with findings and planof care as documented by the resident (or have edited in Blue). Jeremías Baez MD * Sachin Venegas MD - 12/26/2020 1707 EDT Orthopedic progress note Problem: Right diabetic [...] conversation that he would benefit from a wgnvu-tbd-wxma amputation upcoming this week. He denies fevers, [...] No, PICC/Central line not present. Medications - MANAGER TECHNICAL SALES Levothyroxine 112mcg daily - MANAGER TECHNICAL SALES Eliquis 5mg BID - MANAGER TECHNICAL SALES Metformin (holding) - MANAGER TECHNICAL SALES Sitagliptin (holding) - MANAGER TECHNICAL SALES Tramadol 50mg BID PRN - MANAGER TECHNICAL SALES Insulin glargine 45 units sub q nightly - MANAGER TECHNICAL SALES Insulin lispro 10 units sub q with [...] with severe joint space narrowing resulting in vxew-he-mmad as well as subchondral sclerosis and cyst [...] current regimen - Tylenol 1000 q6 PRN, MANAGER TECHNICAL SALES tramadol - Robaxin 750mg q4 - lidocaine patch daily - d/c Morphine 15mg PO q4 PRN - Dilaudid PO 2mg q6 PRN Type 2 Diabetes - MANAGER TECHNICAL SALES regimen of 45 units glargine daily with 10 units lispro with meals - Continue 45 units glargine nightly - Hold MANAGER TECHNICAL SALES lispro - Insulin aspart 10 units with [...] - Diagnosed in August 2020 - Continue MANAGER TECHNICAL SALES apixaban 5mg twice daily Hypothyroidism - continue MANAGER TECHNICAL SALES levothyroxine VTE Prophylaxis Continue MANAGER TECHNICAL SALES Eliquis Discharge Plan Pending clinical improvement Consults Infectious Disease and Nutrition URI MILLER 12/25/2020 8:48 I was present or discussed the history, exam, and medical decision making documented with the medical student. I have edited the medical student note as appropriate. Blake Staton MD 12/25/2020 12:11 Cosigned by Jeremías Baez MD at 12/25/2020 23:33 EDT Associated attestation - Jeremías Baez MD - 12/25/2020 5741 EDT I interviewed and examined the patient. I have personally reviewed interval events, laboratory data, and imaging. I discussed the case with the inpatient resident team. I agree with findings and planof care as documented by the resident (or have edited in Blue). Jeremías Baez MD * Sachin Venegas MD - 12/25/2020 7762 EDT Orthopedic progress note Problem: Right diabetic [...] 7:58 * Angelina Gonzales, DPM - 12/24/2020 0364 EDT S: Saw Mr. Scott at bedside [...] fowlers Semi fowlers Semi fowlers Pulse: Resp: Temp: 36.8 ??C (98.2 ??F) 37.1 ??C [...] resembling staph in 03/06 22.9h, MSSA in 03/06 18h IMAGING DATA: personally reviewed 12/22 right [...] with severe joint space narrowing resulting in apmf-lv-vxms as well as subchondral sclerosis and cyst [...] ortho and CT without fluid collection, fracture. [place] to be OA flare by ortho. 4. [...] REASON FOR ADMISSION: Diabetic foot infection (HCC-CMS) ([facility]) Patient understands reason for admission: Yes PATIENT INFO VERIFIED: PCP, Contact Info, Address Type of housing (single family, condo, apartment, retirement, single room occupancy, [facility] funded hotel room, group usp) - [facility] Who does the patient live with? spouse Does the patient have access to their own bedroom/bathroom/kitchen - or is it shared with others? shared Name of housing complex (ex [employer] [facility], [facility], etc)- n/a Housing Authority/Managing Organization - n/a Community Care Providers (egg caser, [facility] nurse, etc) name and contact information- n/a LIVING ARRANGEMENTS AND ACCESSIBILITY ISSUES: Living Arrangements: Alone, Private residence Levels: 1 Stairs to enter: 4 or more (6-8 steps no railing/ 10-14 at garage w/ railing) Handicap access: None Bathroom located on bedroom level?: Yes What in home social supports are available to the patient? Friends / neighbors Is / care available? No ADVANCED DIRECTIVES, POA &/or COLST IN PLACE: Healthcare Directive: No, patient does not have advance directive for healthcare treatment Information Provided on Healthcare Directives: No Information on Healthcare Directives Requested: No DIRECTIVES FOR FINANCES: Directive For Finances: No TRANSPORTATION: Transportation: Family Transportation Additional Details: Friends vs transportation assistance Patient expects to be discharged to: Home then apartment CULTURAL, MORMONISM and/or LANGUAGE factors affecting health care/discharge planning: Spiritual/Cultural Requests: Pumper Gauger support Insurance Information: Medical Insurance: Yes Type [...] Health Services: None DME Provider: [facility]: [id number] [place], [place] - [address] [place] [address] [place] [address] Home Health: Other: POST HOSPITAL TRANSITION PLAN: [...] No, PICC/Central line not present. Medications - MANAGER TECHNICAL SALES Levothyroxine 112mcg daily - MANAGER TECHNICAL SALES Eliquis 5mg BID - MANAGER TECHNICAL SALES Metformin (holding) - MANAGER TECHNICAL SALES Sitagliptin (holding) - MANAGER TECHNICAL SALES Tramadol 50mg BID PRN - MANAGER TECHNICAL SALES Insulin glargine 45 units sub q nightly - MANAGER TECHNICAL SALES Insulin lispro 10 units sub q with meals (holding) Labs Recent Labs 12/22/20 2035 12/23/20 0702 12/24/20 0944 WBC 14.68* 12.88* [...] with severe joint space narrowing resulting in bbfm-zk-gkeq as well as subchondral sclerosis and cyst [...] current regimen - Tylenol 1000 q6 PRN, MANAGER TECHNICAL SALES tramadol - Robaxin 750mg q4 - lidocaine patch daily - Morphine 15mg PO q4 PRN Type 2 Diabetes - MANAGER TECHNICAL SALES regimen of 45 units glargine daily with 10 units lispro with meals - Continue 45 units glargine nightly - Hold MANAGER TECHNICAL SALES lispro - Insulin aspart 10 units with [...] - Diagnosed in August 2020 - Continue MANAGER TECHNICAL SALES apixaban 5mg twice daily Hypothyroidism - continue MANAGER TECHNICAL SALES levothyroxine VTE Prophylaxis Continue MANAGER TECHNICAL SALES Eliquis Discharge Plan Pending clinical improvement Consults [...] the trough concentration when result available Mandy Rose PharmD Cortext * Uri Miller - 12/23/2020 0824 EDT Medicine Progress Note Service Date: 12/23/2020 [...] No, PICC/Central line not present. Medications - MANAGER TECHNICAL SALES Levothyroxine 112mcg daily - MANAGER TECHNICAL SALES Eliquis 5mg BID - MANAGER TECHNICAL SALES Metformin (holding) - MANAGER TECHNICAL SALES Sitagliptin (holding) - MANAGER TECHNICAL SALES Tramadol 50mg BID PRN - MANAGER TECHNICAL SALES Insulin glargine 45 units sub q nightly - MANAGER TECHNICAL SALES Insulin lispro 10 units sub q with [...] with severe joint space narrowing resulting in lswc-qc-epqp as well as subchondral sclerosis and cyst [...] time. Plan Principal Problem: Diabetic foot infection (HCC-CMS) (HCC) Severe Diabetic Foot Wound - s/p debridement [...] - Currently on Tylenol 1000 q6 PRN, MANAGER TECHNICAL SALES tramadol, and s/p Toradol x2 in the ED - add Robaxin 750mg q4 - lidocaine patch daily Type 2 Diabetes - MANAGER TECHNICAL SALES regimen of 45 units glargine daily with 10 units lispro with meals - Continue 45 units glargine nightly - Hold MANAGER TECHNICAL SALES lispro - Transition from SSI to aspart [...] - Diagnosed in August 2020 - Continue MANAGER TECHNICAL SALES apixaban 5mg twice daily Hypothyroidism - continue MANAGER TECHNICAL SALES levothyroxine VTE Prophylaxis Continue MANAGER TECHNICAL SALES Eliquis Discharge Plan Pending clinical improvement Consults [...] 10/05/2019 I&D, amputation 2nd & 3rd rays, James Social History Tobacco Use ??? Smoking status: [...] lower extremity -Diagnosed in August 2020 -Continue MANAGER TECHNICAL SALES apixaban 5 mg twice daily Type 2 diabetes -MANAGER TECHNICAL SALES regimen of 45 units glargine daily with 10 units lispro with meals -Continue 45 units glargine nightly -Hold designated mealtime insulin given uncertain diet while acutely ill -Sliding scale insulin with meals -Continue MANAGER TECHNICAL SALES atorvastatin -Continue MANAGER TECHNICAL SALES tramadol VTE Prophylaxis Therapeutic apixaban Code: Prior Discharge Plan Uncertain at this time Consults None Patient discussed with Dr. Segovia. DRE ATKINSON MD 12/23/2020 3:56 I saw and examined the patient 12/23/2020. I have discussed the case with Dr. Atkinson and agree with the findings and plans documented above. Marciano Segovia MD, 12/23/2020, 8:12 Attending Physician Internal Medicine Doctors' Hospitalist documented in this encounter Procedure Notes * Chago Leon RN - 12/31/2020 2213 EDTAssociated Order(s): INSERT PICC LINE Central Catheter Insertion First Catheter This Session juice packaging machines setter: Patient Location: [id number] Preliminary Data: Insertion Date: 12/31/20 Insertion Time: 1423 First Csr Retail: Chago Leon RN RN/MA Documenting Procedure: Dania [...] Line Operators: Number Of Operators: 1 First Csr Retail's Name: Chago Leon RN First Csr Retail's Title: Vascular pediatric geneticist Unless otherwise noted, there were no complications, no blood loss and no cultures obtained. CHAGO LEON RN 12/31/2020 14:41 documented in this encounter Consult Notes * Hood Smith, DO - 01/19/2021 1151 EST INFECTIOUS DISEASES [...] LABORATORY: Reviewed in detail in PRISM. WBC/RBC/HGB/HCT/PLT/ANC11.96/3.42/10.5/31.2/370/-- (01/18 400) Estimated Creatinine Clearance: 176.6 mL/min (A) (by [...] mild right trochanteric bursitis demonstrated on thewide hkbwu-vi-drim coronal images 24 December TTE, no concern for endocarditis. [address] ?? * No evidence of acute fracture or dislocation. * There are however end-stage degenerative changes in the left hip with severe joint space narrowing resulting in jdra-bt-bukv as well as subchondral sclerosis and cyst [...] 23 December cleared by 24 December, community-acquired. [place] to be secondary to osteomyelitis of his [...] ID concerns arise. Hood Smith DO Pager [phone] Infectious Diseases Attending * Dell Stover MD - 01/17/2021 8337 EST [facility] Urologic Surgery Inpatient Consult Note Admit Date: [...] month course of Eliquis for DVT in [facility]) who presented for left leg pain, [...] I&D, amputation 2nd & 3rd James calvillo Social History Tobacco Use ??? Smoking status: [...] been cooking for himself and goes to [facility] to get his prescriptions. Is hopeful fora [...] your insulin just prior to your meal. Delores Root, chiseler head Nurse Clinician #[id number] * Kurt Alicea RD - 12/24/2020 1211 EDTAssociated Order(s): CONSULT [...] unit) * Robbie Brown MD - 12/23/2020 6374 EDT Images from the original note were [...] and Family: Not on file ??? Attends Bahai Services: Not on file ??? Active Member [...] with severe joint space narrowing resulting in dzec-oj-xuxx as well as subchondral sclerosis and cyst [...] ortho and CT without fluid collection, fracture. [place] to be OA flare by ortho. 3. [...] Arthritis ??? Back pain ??? Diabetes mellitus ([facility]) ??? Hypothyroidism ??? Wears glasses Past Surgical [...] tablet Take 1 Tab by mouth daily. 2/18/21 Jason Batres MD bisacodyL (DULCOLAX) 10 mg [...] for Pain. Daily Max: 100 mg 12/13/20 Mykel, Carmelita D, PROVIDER SERVICE REPRESENTATIVE No Known Allergies Family History Problem Relation Age of Onset ??? Stroke Mother 71 ??? Cancer Father 65 lung cancer ??? Colon Cancer Neg Hx Social History: Lives in [place] with his (currently in divorce proceedings) in a 1 level ranch home. 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 [...] the patient is in-house. Discussed with: Dr. Christian Fishman MD 12/23/2020 10:13 I am post-call today and will not be able to answer calls. Please direct calls to orthopaedics PA/ESCALATOR MECHANIC for further questions. * Pierre Martinez MD - 12/23/2020 0009 EDT MICU CONSULT NOTE DATE OF SERVICE: 12/23/2020 REQUESTING PHYSICIAN: HPI This is a 60 y.o. male with [...] as he has not eaten since the correctional security officer of 12/22/20. Denies nausea or vomiting. Did not takebedtime bedside insulin on 12/22/20 as patient was being evaluated in the ED. Glucose typically runs in the upper 100s. Denies lows. ROS A 12-point review of systems was obtained and otherwise negative unless noted in HPI. PAST MEDICAL HISTORY has Late effect of intracranial injury (HCC); Craniopharyngioma (HCC-CMS) ([facility]); Memory loss due tomedical condition; Hypothyroidism; Osteoarthritis of left hip; Acute osteomyelitis of phalanx of foot (HCC-CMS) ([facility]); Type 2 diabetes mellitus with diabetic polyneuropathy, with long-term current use of insulin (HCC-CMS) ([facility]); Hyperplastic polyp of descending colon; Diabetic foot infection (HCC-CMS) ([facility]); and Acute osteomyelitis of right ankle or foot (HCC-CMS) ([facility]) on their problem list. PAST SURGICAL HISTORY [...] starvation ketosis. This is compounded by missed MANAGER TECHNICAL SALES insulin dosing. I favor allowing patient to eat given no impending operations and giving both mealtime and long acting insulin. I anticipate with eating ketogenesis will resolve, lab work will improve, and patient will be stable for admission to the floor. - 45 units glargine now (MANAGER TECHNICAL SALES dose) - 10 units aspart (MANAGER TECHNICAL SALES mealtime dose) plus SSI now - Advance [...] Martinez M.D. Department of Pulmonary/Critical Care Medicine Geospatial Technologist, F-1 Available on cortext Cosigned by Makeda [...] Surgery: 12/29/2020 Attending Surgeon: Edson Arzate MD Manager Video Surgeon: Dr. Gilda Black, Dr. Weinstein seeker Preoperative Diagnosis: Right lower extremity chronic osteomyelitis [...] antiplatelet if applicable: Internal Control Charge Nurse: [phone] OR nurse will call to floor if further report is needed. Other issues identified: Pt with lidocaine patch in place, nursing to remove prior to going to the OR In coordination with inpatient nurse, this patient and chart has been reviewed for OR readiness. Pre Op PIN Nurse [phone] documented in this encounter ED Notes * [...] pt without blood cultures in process, MD dorsey, will draw 1st set obtained and sent [...] side, has significant pain with moving around. MD dorsey, will give pain meds, remains afebrile * [...] patient's care. Final diagnoses: Diabetic foot infection ([facility]) ([facility]) This documentation is recorded by Arleth Morgan acting as Scribe under the direction and presence of Dr. Pinto. aMry Ann Jauregui MD, have utilized a scribe to help [...] EDT Nguyen Scott, , wants update in [phone] * Arianne Harkins RN - 12/22/2020 203 EDT 20:39 labs collected and sent * [...] Toradol IV * Alessandro Hernandez MD - 12/22/2020 1946 EDT This patient received an evaluation and medical screening exam for emergent medical conditions at the [facility] on 12/22/2020 Scribe Attestation: This documentation [...] rt-PCR Result Negative Final Performing Lab [facility]pert [facility] Lab Final COVID-19 TEST [facility] LAB PCR BACTERIAL CULTURE, BLOOD BACTERIAL CULTURE, BLOOD ANAEROBE CULTURE/SMEAR(INC. AEROBES), OTHER ANAEROBE CULTURE/SMEAR(INC. AEROBES), OTHER HOLD GREEN TOP Hold Hold Final HOLD BLUE TOP Hold Hold Final SYNOVIAL CELL COUNT Narrative: The following orders were created for panel order SYNOVIAL CELL COUNT. Procedure Abnormality Status --------- ------ SYNOVIAL FLUID CELL COUNT[[id number]] Please view results for these tests on the individual orders. CRYSTAL ANALYSIS FLUID ONLY SYNOVIAL FLUID CELL COUNT BASIC METABOLIC PANEL (BMP) Procedures Procedures MDM MDM Number of Diagnoses or Management Options Diabetic foot infection ([facility]) ([facility]) Diagnosis management comments: 60-year-old male history of [...] Please see radiology report for further details. 3: The patient was given 15 mg IV [...] D: Patient noted with discharge orders to: [facility] A: PICC removed by IV nurse this morning, dressing intact. Belongings collected and sent home with patient. [facility] R: Patient verbalized understanding of discharge instructions [...] concerns. Weekdays page the Urology Service Pager #[phone], nights after 5pm and weekends page through PAS. MURRAY GARCIA MD 01/20/2021 16:13 * Plan [...] clots. Provider aware. Action: Meds given per MAY. Clustered care to promote rest. Hourly checks. [...] 01/14/2021 18:24 * Plan of Care - Erica Parikh RN - 01/14/2021 0157 EST Problem: [...] oriented to B3 Data: Pt arrived to [facility] at 1630. Pt oriented to unit and [...] not doing that!. Action: Meds given per MAR. Pt turned and repositioned. Nutrashield applied to [...] morphine, gabapentin, and robaxin per medication orders. MEDICAL TRANSPORT SPECIALIST walked patient through therapeutic breathing exercises to calm the patient. Response: Patient continues to express intense pain in left hip, and pain with repositioning. Patient has been educated on need to reposition to prevent skin breakdown. Patient was transferred to [place] [id number]. FABIAN MCFADDEN RN 01/11/2021 13:53 * Plan [...] Mono Padilla RN - 01/07/2021 2309 EDT [facility] was unavailable from 12/31/2019 to 01/25/2020. All [facility] clinical notes for this period were written on paper and will be scanned into [facility] post discharge. MONO PADILLA RN Data: Pt [...] Goal: Care Plan Documentation Flowsheets (Taken 01/07/2021 0871) Area of Focus: Skin Integrity Goal This [...] activity as tolerated. Bladder scanned for >1000cc, notified, subsequently straight cathed with 1325 out. [...] of Care - Nena Allison - 01/07/2021 0908 EDT Clinician presented to pt's room for consult. Pt was asleep and unavailable for consult. Clinician spoke with pt's nurse and informed nurse of pending Adult Protective Services visit. Please page clinician if Med Psych presence during visit would be helpful. Thank you for including us in this patient's care today. Please reach out if you have any questions. Nena Allison M.S. Infrastructure Analyst Pager #: [phone] Cosigned by Augusta Hernandez, PhD at 01/07/2021 [...] A - Assessed pt, administered medications per MAR. Administered PRN pain medication. Q2H turns and [...] pain, right leg pain. Medication administered per MAR. A&O x 3 with intermittent forgetfulness. Able to make needs known to staff. Q2 turns, 10/10 left hip pain managed with pain medication per MAR. Case management (Mars Ledezma) and psych seo intern notified of family wanting a proxy or [...] you have any questions. Nena Allison M.S. Infrastructure Analyst Pager #: [phone] Cosigned by Augusta Hernandez, PhD at 01/06/2021 [...] you have any questions. Nena Allison M.S. Infrastructure Analyst Pager #: [phone] Cosigned by Augusta Hernandez, PhD at 01/06/2021 13:04 EDT * Plan of Care - Jennifer Chen RN - 01/06/2021 0142 EDT Problem: Daily Care Plan Goals Goal: Care Plan Documentation Flowsheets (Taken 01/05/20212043) Area of Focus: Pain/ Comfort Goal This Shift: Control pain to promote rest Data: [id number]. Now POD #7 R BKA w/ course [...] you have any questions. Nena Allison M.S. Infrastructure Analyst Pager #: [phone] Cosigned by Augusta Hernandez, PhD at 01/04/2021 [...] you have any questions. Nena Allison M.S. Infrastructure Analyst Pager #: [phone] Cosigned by Augusta Hernandez, PhD at 01/03/2021 [...] Plan Documentation Outcome: Ongoing Flowsheets (Taken 01/02/2021 023) Area of Focus: Pain/ Comfort Goal This [...] Care - Iza Huggins RN - 12/31/2020 1409 EDT Problem: Daily Care Plan Goals Goal: Care Plan Documentation Flowsheets (Taken 12/31/2020 9662) Area of Focus: Mobility Goal This Shift: Q2 turn & repo Data: This is a 60 year old male POD#2 s/p R BKA. Site is [facility]. A&Ox3, does have a cognitive delay and [...] procedure. PICC placed by IV team in [facility]. Action: Medicated per MAY. Emotional support provided [...] Plan Documentation Outcome: Ongoing Flowsheets (Taken 12/30/2020 0930) Area of Focus: Pain/ Comfort Goal This [...] Specimens: 1 right leg Closure: prolene Staff: Electronic Warfare Operator: Jyotsna Lyons RN Relief Scrub: Alberta Moore RN Scrub Person: Glenys Wilson RN Patient Associate Merchandise Planner: Aurora Ramirez MA Disposition and Condition: PACU [...] A&Ox3 but can be forgetful. C/o pain 10/12 in L hip. 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 A: Hourly rounding for pt safety. Medications administered per MAY, PRN dilaudid for pain. Clustered care to promote rest. Education provided to pt regarding diet order. R: Pt able to get adequate rest overnight, however pain does not appear to be controlled on currentregimine. No distress noted, call larson within reach. DELVIS KHAN, JARVIS 12/29/2020 1:15 * Plan of Care - [...] you have any questions. Nena Allison M.S. Infrastructure Analyst Pager #: [phone] Cosigned by Patrica Lui, PhD at 12/28/2020 11:54 EDT * Plan of Care - Charli Cody RN - 12/28/2020 3123 EDT Problem: Cognitive: Goal: Mental status/cognition is [...] is above 92%. Helped pt to the bsc to have a bm. Skin integrity is intact. Aaox3. Action: explained to pt about plan of care and pain medication regimen. Also explained to patient on how to use call light when in need Response: pt verbalized understanding. Will continue to monitor CHARLI CODY RN 12/28/2020 4:37 * Plan of Care - Annette Estrada RN - 12/27/20201816 EDT Data: VSS on RA. AOX3, anxious [...] Goal: Mental status/cognition is maintained/returned to baseline 12/27/20201815 by Annette Estrada RN Outcome: Ongoing 12/27/20201815 by Annette Estrada RN Outcome: Ongoing 12/27/2020 1502 by Annette Estrada RN Outcome: Ongoing Problem: PAIN Goal: Patient's pain/discomfort is manageable/tolerable Outcome: Ongoing Problem: Pressure Ulcer Prevention Goal: Absence Of Pressure Ulcer 12/27/20201815 by Annette Estrada RN Outcome: Ongoing 12/27/2020 [...] Plan Documentation Outcome: Ongoing Flowsheets (Taken 12/26/2020 0177) Area of Focus: Pain/ Comfort Goal This Shift: Pain will be adequately managed Data: Aox3 with short term memory loss. Inappropriate at times, placing his hand on editorial writer's waist.Afebrile. Complains of 7-8/10 pain in L [...] Plan Documentation Outcome: Ongoing Flowsheets (Taken 12/25/2020 8668) Area of Focus: Pain/ Comfort Goal This Shift: Pain will be adequately managed Data: Aox2-3 with periods of confusion. Can be inappropriate at times, placing his head on female staff's upperarm. Complaining of L hip pain 8-10 which he does not complain about when [...] and R foot ulcer Action: Performed rounding, [id number], administer medication per order and pt need, [...] Note: attempted to visit with patient today. Legal Internship in the room completing foot assessment and [...] foot clean/dry/intact. Action: admin pain meds per may. 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 ([facility]) ([facility]) POCT GLUCOSE, INTERFACED Routine 12/29/2020 17:02 EDT [...] INTERFACED Routine 12/28/2020 18:11 EDT ZZCOVID-19 TEST [facility] PCR Today 12/28/2020 14:50 EDT COVID-19 [...] TOP Routine 12/22/2020 20:37 EDT ZZCOVID-19 TEST [facility] PCR Today 12/22/2020 20:36 EDT COVID-19 [...] 01/26/2021 10:4 7 EST us Scan 2 Machine Shop Specialist ADMISSION ORDERABLES Final Result * (ABNORMAL) POCT GLUCOSE, INTERFACED (01/21/2021 9:07 EST) Glucose, POC 102(H) 70 - 100 mg/dL 01/21/2021 9:19 EST [facility] HN LAB POC COMMENT (GLUCOSE) Test Performed by Nursing Services 01/21/2021 9:19 EST [facility] Blood CAPILLARY BLOOD / Unknown 01/21/2021 9:07 EST 01/21/2021 9:19 EST Gela Borges MD POINT OF CARE TEST ORDERABLES Final Result Performing Organization Address [facility]/State/[facility] Co de Phone Number [facility] [address] [place] [address] * (ABNORMAL) POCT GLUCOSE, INTERFACED (01/20/2021 21:27 EST) Glucose, POC 137(H) 70 - 100 mg/dL 01/20/2021 21:28 EST [facility] HN LAB POC COMMENT (GLUCOSE) Test Performed by Nursing Services 01/20/2021 21:28 EST [facility] Blood CAPILLARY BLOOD / Unknown 01/20/2021 21:27 EST 01/20/2021 21:28 EST us Gela Borges MD POINT OF CARE TEST ORDERABLES Final Result Performing Organization Address City/[facility]/ZIP Co de Phone Number [facility] [address] [place] [address] * (ABNORMAL) POCT GLUCOSE, INTERFACED (01/20/2021 17:01 EST) Glucose, POC 156(H) 70 - 100 mg/dL 01/20/2021 17:02 EST [facility] HN LAB POC COMMENT (GLUCOSE) Test Performed by Nursing Services 01/20/2021 17:02 EST [facility] Blood CAPILLARY BLOOD / Unknown 01/20/2021 17:01 EST 01/20/2021 17:02 EST Gela Borges MD POINT OF CARE TEST ORDERABLES Final Result Performing Organization Address [facility] Co de Phone Number [facility] [address] [place] [address] * CT UROGRAM (01/20/2021 15:47 EST) Anatomical [...] seen on recent MRI of the hip. Stacking Machine Operator: Gaseous distention of the stomach. Procedure Note [...] a rate of 1 cc/second; then after [id number] delay, a 50 cc bolus of 350 [...] seen on recent MRI of the hip. Stacking Machine Operator: Gaseous distention of the stomach. IMPRESSION Negative [...] joint. Corey Alvarez MD IMG CT ORDERABLES Sobia l Result * COVID-19 TEST [facility] PCR (01/20/2021 13:49 EST) Swab ENTIRE NASOPHARYNX / Unknown Swab / Unknown 01/20/2021 13:49 EST 01/20/2021 13:57 EST Corey Alvarez MD MICROBIOLOGY - GENERAL ORDERABLES Final Result [facility] [address] [place] [id number] * COVID-19 TESTING (01/20/2021 13:49 EST) COVID-19 rt-PCR Result Negative Negative 01/20/2021 18:09 [facility] Comment: This test [...] history, and epidemiological information. Performed on the Spotie instrument Performing Lab [place] [facility] 01/20/2021 18:09 [facility] Swab ENTIRE NASOPHARYNX / Unknown Swab / Unknown 01/20/2021 13:49 EST 01/20/2021 13:57 EST us Corey Alvarez MD MICROBIOLOGY - GENERAL ORDERABLES Final Result [facility] [address] [place] [id number] * NON MOSAIC LAYER/FNA CYTOLOGY (01/20/2021 13:16 EST) Note to Patient The following pathology results have been interpreted by your pathologist and may be available to you before your health provider has had the opportunity to review them. Please allow time for your provider to receive these results and explore management options, if applicable. 01/21/2021 11:30 [facility] Final Diagnosis URINE, CATHETERIZED, CYTOLOGIC EVALUATION: - Negative for high grade urothelial carcinoma. - Specimen predominantly composed of abundant blood, proteinaceous debris, acute inflammation, and crystals. 01/21/2021 11:30 [facility] Attestation By the signature below, the attending physician certifies that they have personally conducted a gross and/or microscopic examination of the described specimens and rendered or confirmed the above diagnosis. 01/21/2021 11:30 [facility] at 1130 Clinical History hematuria 01/21/2021 11:30 [facility] Gross Description A. 90cc's of opaque brown fluid were received and processed by selective cellular enhancement technique. 01/21/2021 11:30 [facility] Performing Lab [facility] 01/21/2021 11:30 [facility] Scanned Images 01/21/2021 11:30 [facility] Urine URINE SPECIMEN COLLECTION, CATHETERIZED / Unknown Urine Collect / Unknown 01/20/2021 13:16 EST 01/20/2021 13:40 EST Result [facility] Corey Alvarez MD PATHOLOGY ORDERABLES F inal Result Performing Organization Address [facility] Co de Phone Number [facility] [address] [place] [address] * (ABNORMAL) POCT GLUCOSE, INTERFACED (01/20/2021 11:25 EST) Glucose, POC 141(H) 70 - 100 mg/dL 01/20/2021 11:26 [facility] HN LAB POC COMMENT (GLUCOSE) Test Performed by Nursing Services 01/20/2021 11:26 [facility] Blood CAPILLARY BLOOD / Unknown 01/20/2021 11:25 EST 01/20/2021 11:26 EST us Gela Borges MD POINT OF CARE TEST ORDERABLES Final Result Performing Organization Address City/[facility] Co de Phone Number [facility] [address] [place] [address] * (ABNORMAL) POCT GLUCOSE, INTERFACED (01/20/2021 8:13 EST) Glucose, POC 135(H) 70 - 100 mg/dL 01/20/2021 8:14 [facility] HN LAB POC COMMENT (GLUCOSE) Test Performed by Nursing Services 01/20/2021 8:14 [facility] Blood CAPILLARY BLOOD / Unknown 01/20/2021 8:13 EST 01/20/2021 8:14 EST Gela Borges MD POINT OF CARE TEST ORDERABLES Final Result [facility] [address] [place] [address] * (ABNORMAL) COMPLETE BLOOD COUNT (01/20/2021 5:22 EST) WBC 11.13(H) 4.00 - 10.40 K/cmm 01/20/2021 5:45 [facility] RBC 3.29(L) 4.36 - 5.78 M/cmm 01/20/2021 5:45 [facility] Hemoglobin 10.1(L) 13.8 - 17.3 gm/dL 01/20/2021 5:45 [facility] HCT 30.1(L) 39.5 - 50.2 % 01/20/2021 5:45 [facility] MCV 92 81 - 95 fl 01/20/2021 5:45 [facility] MCH 30.7 27.6 - 33.0 pg 01/20/2021 5:45 [facility] MCHC 33.6 32.8 - 36.4 gm/dL 01/20/2021 5:45 [facility] RDW-CV 13.4 <14.2 % 01/20/2021 5:45 [facility] RDW-SD 44.2 <46.0 fl 01/20/2021 5:45 [facility] PLT 303 141 - 377 K/cmm 01/20/2021 5:45 [facility] MPV 9.2(L) 9.5 - 12.7 fl 01/20/2021 5:45 [facility] Blood BLOOD SAMPLE TAKEN FROM CENTRAL LINE / Unknown Venipuncture / Unknown 01/20/2021 5:22 EST 01/20/2021 5:33 EST Desiree Marcano DO HEMATOLOGY & PF4 ORDERABLES Fi nal Result [facility] [address] [place] [address] * (ABNORMAL) BASIC METABOLIC PANEL (BMP) (01/20/2021 5:22 EST) Sodium 140 136 - 145 mmol/L 01/20/2021 6:02 EST [facility] Potassium 4.3 3.5 - 5.0 mmol/L 01/20/2021 6:02 [facility] Chloride 104 96 - 110 mmol/L 01/20/2021 6:02 [facility] CO2 Total 26 22 - 32 mmol/L 01/20/2021 6:02 [facility] Anion Gap 10 8 - 16 01/20/2021 6:02 [facility] Glucose 138(H) 70 - 100 mg/dL 01/20/2021 6:02 [facility] Calcium 9.2 8.5 - 10.5 mg/dL 01/20/2021 6:02 [facility] BUN 20 10 - 26 mg/dL 01/20/2021 6:02 [facility] Creatinine 0.64(L) 0.66 - 1.25 mg/dL 01/20/2021 6:02 [facility] eGFR 107 >60 mL/min/1.73 m2 01/20/2021 6:02 [facility] Blood VENOUS BLOOD / Unknown Venipuncture / Unknown 01/20/2021 5:22 EST 01/20/2021 5:33 EST Desiree Marcano DO CHEMISTRY & BLOOD GAS ORDERABL ES Final Result Performing Organization Address City/[facility]/ZIP Co de Phone Number [facility] [address] [place] [address] * (ABNORMAL) POCT GLUCOSE, INTERFACED (01/19/2021 20:42 EST) Glucose, POC 102(H) 70 - 100 mg/dL 01/19/2021 20:43 EST [facility] HN LAB POC COMMENT (GLUCOSE) Test Performed by Nursing Services 01/19/2021 20:43 EST [facility] Blood CAPILLARY BLOOD / Unknown 01/19/2021 20:42 EST 01/19/2021 20:43 EST Gela Borges MD POINT OF CARE TEST ORDERABLES Final Result Performing Organization Address City/[facility]/ZIP Co de Phone Number [facility] [address] [place] [address] * (ABNORMAL) POCT GLUCOSE, INTERFACED (01/19/2021 16:43 EST) Glucose, POC 190(H) 70 - 100 mg/dL 01/19/2021 18:13 EST [facility] HN LAB POC COMMENT (GLUCOSE) Test Performed by Nursing Services 01/19/2021 18:13 EST [facility] Blood CAPILLARY BLOOD / Unknown 01/19/2021 16:43 EST 01/19/2021 18:13 EST Result [facility] Gela Borges MD POINT OF CARE TEST ORDERABLES Final Result Performing Organization Address City/[facility]/ZIP Co de Phone Number [facility] [address] [place] [address] * (ABNORMAL) POCT GLUCOSE, INTERFACED (01/19/2021 11:27 EST) Glucose, POC 106(H) 70 - 100 mg/dL 01/19/2021 11:28 EST [facility] HN LAB POC COMMENT (GLUCOSE) Test Performed by Nursing Services 01/19/2021 11:28 EST [facility] Blood CAPILLARY BLOOD / Unknown 01/19/2021 11:27 EST 01/19/2021 11:28 EST Gela Borges MD POINT OF CARE TEST ORDERABLES Final Result [facility] [address] [place] [address] * (ABNORMAL) POCT GLUCOSE, INTERFACED (01/19/2021 7:44 EST) Glucose, POC 145(H) 70 - 100 mg/dL 01/19/2021 7:45 EST [facility] HN LAB POC COMMENT (GLUCOSE) Test Performed by Nursing Services 01/19/2021 7:45 EST [facility] Blood CAPILLARY BLOOD / Unknown 01/19/2021 7:44 EST 01/19/2021 7:45 EST us Gela Borges MD POINT OF CARE TEST ORDERABLES Final Result Performing Organization Address City/[facility]/ZIP Co de Phone Number [facility] [address] [place] [address] * (ABNORMAL) POCT GLUCOSE, INTERFACED (01/18/2021 20:04 EST) Glucose, POC 144(H) 70 - 100 mg/dL 01/18/2021 20:05 EST [facility] HN LAB POC COMMENT (GLUCOSE) Test Performed by Nursing Services 01/18/2021 20:05 EST [facility] Blood CAPILLARY BLOOD / Unknown 01/18/2021 20:04 EST 01/18/2021 20:05 EST us Gela Borges MD POINT OF CARE TEST ORDERABLES Final Result [facility] [address] [place] [address] * (ABNORMAL) POCT GLUCOSE, INTERFACED (01/18/2021 17:27 EST) Glucose, POC 145(H) 70 - 100 mg/dL 01/18/2021 17:28 EST [facility] HN LAB POC COMMENT (GLUCOSE) Test Performed by Nursing Services 01/18/2021 17:28 EST [facility] Blood CAPILLARY BLOOD / Unknown 01/18/2021 17:27 EST 01/18/2021 17:28 EST Gela Borges MD POINT OF CARE TEST ORDERABLES Final Result [facility] [address] [place] [address] * POCT GLUCOSE, INTERFACED (01/18/2021 11:38 EST) Glucose, POC 92 70 - 100 mg/dL 01/18/2021 11:40 EST [facility] HN LAB POC COMMENT (GLUCOSE) Test Performed by Nursing Services 01/18/2021 11:40 EST [facility] Blood CAPILLARY BLOOD / Unknown 01/18/2021 11:38 EST 01/18/2021 11:40 EST Gela Borges MD POINT OF CARE TEST ORDERABLES Final Result [facility] [address] [place] [address] * (ABNORMAL) POCT GLUCOSE, INTERFACED (01/18/2021 7:01 EST) Glucose, POC 109(H) 70 - 100 mg/dL 01/18/2021 7:03 EST [facility] HN LAB POC COMMENT (GLUCOSE) Test Performed by Nursing Services 01/18/2021 7:03 EST [facility] Blood CAPILLARY BLOOD / Unknown 01/18/2021 7:01 EST 01/18/2021 7:03 EST Gela Borges MD POINT OF CARE TEST ORDERABLES Final Result [facility] [address] [place] [address] * (ABNORMAL) POCT GLUCOSE, INTERFACED (01/18/2021 6:47 EST) Glucose, POC 109(H) 70 - 100 mg/dL 01/18/2021 8:02 EST [facility] HN LAB POC COMMENT (GLUCOSE) Test Performed by Nursing Services 01/18/2021 8:02 EST [facility] Blood CAPILLARY BLOOD / Unknown 01/18/2021 6:47 EST 01/18/2021 8:02 EST us Lewis Davis MD POINT OF CARE TEST ORDERA BLES Final Result Performing Organization Address City/[facility]/ZIP Co de Phone Number [facility] [address] [place] [address] * (ABNORMAL) POCT GLUCOSE, INTERFACED (01/17/2021 20:41 EST) Glucose, POC 171(H) 70 - 100 mg/dL 01/17/2021 20:42 EST [facility] HN LAB POC COMMENT (GLUCOSE) Test Performed by Nursing Services 01/17/2021 20:42 EST [facility] Blood CAPILLARY BLOOD / Unknown 01/17/2021 20:41 EST 01/17/2021 20:42 EST Gela Borges MD POINT OF CARE TEST ORDERABLES Final Result Performing Organization Address [facility] Co de Phone Number [facility] [address] [place] [address] * (ABNORMAL) POCT GLUCOSE, INTERFACED (01/17/2021 17:21 EST) Glucose, POC 184(H) 70 - 100 mg/dL 01/17/2021 17:22 EST [facility] HN LAB POC COMMENT (GLUCOSE) Test Performed by Nursing Services 01/17/2021 17:22 EST [facility] Blood CAPILLARY BLOOD / Unknown 01/17/2021 17:21 EST 01/17/2021 17:22 EST us Gela Borges MD POINT OF CARE TEST ORDERABLES Final Result [facility] [address] [place] [address] * POCT GLUCOSE, INTERFACED (01/17/2021 11:18 EST) Glucose, POC 87 70 - 100 mg/dL 01/17/2021 11:20 EST [facility] HN LAB POC COMMENT (GLUCOSE) Test Performed by Nursing Services 01/17/2021 11:20 EST [facility] Blood CAPILLARY BLOOD / Unknown 01/17/2021 11:18 EST 01/17/2021 11:20 EST us Gela Borges MD POINT OF CARE TEST ORDERABLES Final Result [facility] [address] [place] [address] * (ABNORMAL) POCT GLUCOSE, INTERFACED (01/17/2021 7:09 EST) Glucose, POC 132(H) 70 - 100 mg/dL 01/17/2021 7:10 EST [facility] HN LAB POC COMMENT (GLUCOSE) Test Performed by Nursing Services 01/17/2021 7:10 EST [facility] Blood CAPILLARY BLOOD / Unknown 01/17/2021 7:09 EST 01/17/2021 7:10 EST us Ti Maloney MD POINT OF CARE TEST ORDERABLES Fi nal Result [facility] [address] [place] [address] * (ABNORMAL) POCT GLUCOSE, INTERFACED (01/17/2021 6:13 EST) Glucose, POC 129(H) 70 - 100 mg/dL 01/17/2021 6:18 EST [facility] HN LAB POC COMMENT (GLUCOSE) Test Performed by Nursing Services 01/17/2021 6:18 EST [facility] Blood CAPILLARY BLOOD / Unknown 01/17/2021 6:13 EST 01/17/2021 6:18 EST us Gela Borges MD POINT OF CARE TEST ORDERABLES Final Result [facility] [address] [place] [address] * (ABNORMAL) COMPLETE BLOOD COUNT (01/17/2021 4:00 EST) WBC 11.96(H) 4.00 - 10.40 K/cmm 01/17/2021 4:22 [facility] RBC 3.42(L) 4.36 - 5.78 M/cmm 01/17/2021 4:22 [facility] Hemoglobin 10.5(L) 13.8 - 17.3 gm/dL 01/17/2021 4:22 [facility] HCT 31.2(L) 39.5 - 50.2 % 01/17/2021 4:22 [facility] MCV 91 81 - 95 fl 01/17/2021 4:22 [facility] MCH 30.7 27.6 - 33.0 pg 01/17/2021 4:22 [facility] MCHC 33.7 32.8 - 36.4 gm/dL 01/17/2021 4:22 [facility] RDW-CV 13.4 <14.2 % 01/17/2021 4:22 [facility] RDW-SD 44.8 <46.0 fl 01/17/2021 4:22 [facility] PLT 370 141 - 377 K/cmm 01/17/2021 4:22 [facility] MPV 9.1(L) 9.5 - 12.7 fl 01/17/2021 4:22 [facility] Blood VENOUS BLOOD / Unknown Venipuncture / Unknown 01/17/2021 4:00 EST 01/17/2021 4:10 EST us Desiree Marcano DO HEMATOLOGY & PF4 ORDERABLES Fi nal Result [facility] [address] [place] [address] * (ABNORMAL) BASIC METABOLIC PANEL (BMP) (01/17/2021 4:00 EST) Sodium 138 136 - 145 mmol/L 01/17/2021 4:50 [facility] Potassium 4.4 3.5 - 5.0 mmol/L 01/17/2021 4:50 [facility] Chloride 99 96 - 110 mmol/L 01/17/2021 4:50 [facility] CO2 Total 29 22 - 32 mmol/L 01/17/2021 4:50 [facility] Anion Gap 10 8 - 16 01/17/2021 4:50 [facility] Glucose 133(H) 70 - 100 mg/dL 01/17/2021 4:50 [facility] Calcium 9.6 8.5 - 10.5 mg/dL 01/17/2021 4:50 [facility] BUN 19 10 - 26 mg/dL 01/17/2021 4:50 [facility] Creatinine 0.60(L) 0.66 - 1.25 mg/dL 01/17/2021 4:50 [facility] eGFR 110 >60 mL/min/1.73 m2 01/17/2021 4:50 [facility] Blood VENOUS BLOOD / Unknown Venipuncture / Unknown 01/17/2021 4:00 EST 01/17/2021 4:10 EST us Desiree Marcano DO CHEMISTRY & BLOOD GAS ORDERABL ES Final Result [facility] [address] [place] [address] * (ABNORMAL) POCT GLUCOSE, INTERFACED (01/16/2021 21:01 EST) Glucose, POC 114(H) 70 - 100 mg/dL 01/16/2021 21:02 [facility] HN LAB POC COMMENT (GLUCOSE) Test Performed by Nursing Services 01/16/2021 21:02 EST [facility] Blood CAPILLARY BLOOD / Unknown 01/16/2021 21:01 EST 01/16/2021 21:02 EST Gela Borges MD POINT OF CARE TEST ORDERABLES Final Result Performing Organization Address City/[facility]/ZIP Co de Phone Number [facility] [address] [place] [address] * (ABNORMAL) POCT GLUCOSE, INTERFACED (01/16/2021 17:05 EST) Glucose, POC 168(H) 70 - 100 mg/dL 01/16/2021 17:06 EST [facility] HN LAB POC COMMENT (GLUCOSE) Test Performed by Nursing Services 01/16/2021 17:06 EST [facility] Blood CAPILLARY BLOOD / Unknown 01/16/2021 17:05 EST 01/16/2021 17:06 EST Gela Borges MD POINT OF CARE TEST ORDERABLES Final Result Performing Organization Address City/[facility]/ZIP Co de Phone Number [facility] [address] [place] [address] * POCT GLUCOSE, INTERFACED (01/16/2021 11:04 EST) Glucose, POC 99 70 - 100 mg/dL 01/16/2021 11:05 EST [facility] HN LAB POC COMMENT (GLUCOSE) Test Performed by Nursing Services 01/16/2021 11:05 EST [facility] Blood CAPILLARY BLOOD / Unknown 01/16/2021 11:04 EST 01/16/2021 11:05 EST Gela Borges MD POINT OF CARE TEST ORDERABLES Final Result [facility] [address] [place] [address] * POCT GLUCOSE, INTERFACED (01/16/2021 7:05 EST) Glucose, POC 79 70 - 100 mg/dL 01/16/2021 7:08 EST [facility] HN LAB POC COMMENT (GLUCOSE) Test Performed by Nursing Services 01/16/2021 7:08 EST [facility] Blood CAPILLARY BLOOD / Unknown 01/16/2021 7:05 EST 01/16/2021 7:08 EST us Gela Borges MD POINT OF CARE TEST ORDERABLES Final Result Performing Organization Address City/[facility]/ZIP Co de Phone Number [facility] [address] [place] [address] * (ABNORMAL) POCT GLUCOSE, INTERFACED (01/15/2021 20:18 EST) Glucose, POC 180(H) 70 - 100 mg/dL 01/15/2021 20:19 EST [facility] HN LAB POC COMMENT (GLUCOSE) Test Performed by Nursing Services 01/15/2021 20:19 EST [facility] Blood CAPILLARY BLOOD / Unknown 01/15/2021 20:18 EST 01/15/2021 20:19 EST us Gela Borges MD POINT OF CARE TEST ORDERABLES Final Result Performing Organization Address [facility]/ZIP Co de Phone Number [facility] [address] [place] [address] * POCT GLUCOSE, INTERFACED (01/15/2021 16:45 EST) Glucose, POC 74 70 - 100 mg/dL 01/15/2021 17:43 EST [facility] HN LAB POC COMMENT (GLUCOSE) Test Performed by Nursing Services 01/15/2021 17:43 EST [facility] Blood CAPILLARY BLOOD / Unknown 01/15/2021 16:45 EST 01/15/2021 17:43 EST us Gela Borges MD POINT OF CARE TEST ORDERABLES Final Result [facility] [address] [place] [address] * (ABNORMAL) POCT GLUCOSE, INTERFACED (01/15/2021 12:32 EST) Glucose, POC 102(H) 70 - 100 mg/dL 01/15/2021 12:59 EST [facility] HN LAB POC COMMENT (GLUCOSE) Test Performed by Nursing Services 01/15/2021 12:59 EST [facility] Blood CAPILLARY BLOOD / Unknown 01/15/2021 12:32 EST 01/15/2021 12:59 EST us Gela Borges MD POINT OF CARE TEST ORDERABLES Final Result Performing Organization Address City/[facility]/ZIP Co de Phone Number [facility] [address] [place] [address] * (ABNORMAL) POCT GLUCOSE, INTERFACED (01/15/2021 7:18 EST) Glucose, POC 142(H) 70 - 100 mg/dL 01/15/2021 7:19 EST [facility] HN LAB POC COMMENT (GLUCOSE) Test Performed by Nursing Services 01/15/2021 7:19 EST [facility] Blood CAPILLARY BLOOD / Unknown 01/15/2021 7:18 EST 01/15/2021 7:19 EST us Gela Borges MD POINT OF CARE TEST ORDERABLES Final Result [facility] [address] [place] [address] * (ABNORMAL) POCT GLUCOSE, INTERFACED (01/15/2021 0:03 EST) Glucose, POC 128(H) 70 - 100 mg/dL 01/15/2021 0:20 EST [facility] HN LAB POC COMMENT (GLUCOSE) Test Performed by Nursing Services 01/15/2021 0:20 EST [facility] Blood CAPILLARY BLOOD / Unknown 01/15/2021 0:03 EST 01/15/2021 0:20 EST us Ti Maloney MD POINT OF CARE TEST ORDERABLES Fi nal Result Performing Organization Address City/[facility] Co de Phone Number [facility] [address] [place] [address] * POCT GLUCOSE, INTERFACED (01/14/2021 21:34 EST) Glucose, POC 80 70 - 100 mg/dL 01/14/2021 21:36 EST [facility] HN LAB POC COMMENT (GLUCOSE) Test Performed by Nursing Services 01/14/2021 21:36 EST [facility] Blood CAPILLARY BLOOD / Unknown 01/14/2021 21:34 EST 01/14/2021 21:36 EST us Ti Maloney MD POINT OF CARE TEST ORDERABLES Fi nal Result Performing Organization Address [facility] Co de Phone Number [facility] [address] [place] [address] * (ABNORMAL) POCT GLUCOSE, INTERFACED (01/14/2021 20:42 EST) Glucose, POC 118(H) 70 - 100 mg/dL 01/14/2021 20:43 EST [facility] HN LAB POC COMMENT (GLUCOSE) Test Performed by Nursing Services 01/14/2021 20:43 EST [facility] Blood CAPILLARY BLOOD / Unknown 01/14/2021 20:42 EST 01/14/2021 20:43 EST us Gela Borges MD POINT OF CARE TEST ORDERABLES Final Result Performing Organization Address City/[facility]/ZIP Co de Phone Number [facility] [address] [place] [address] * (ABNORMAL) POCT GLUCOSE, INTERFACED (01/14/2021 16:43 EST) Glucose, POC 173(H) 70 - 100 mg/dL 01/14/2021 17:44 EST [facility] HN LAB POC COMMENT (GLUCOSE) Test Performed by Nursing Services 01/14/2021 17:44 EST [facility] Blood CAPILLARY BLOOD / Unknown 01/14/2021 16:43 EST 01/14/2021 17:43 EST us Gela Borges MD POINT OF CARE TEST ORDERABLES Final Result Performing Organization Address City/[facility] Co de Phone Number [facility] [address] [place] [address] * (ABNORMAL) POCT GLUCOSE, INTERFACED (01/14/2021 11:49 EST) Glucose, POC 65(L) 70 - 100 mg/dL 01/14/2021 11:50 EST [facility] HN LAB POC COMMENT (GLUCOSE) Test Performed by Nursing Services 01/14/2021 11:50 EST [facility] Blood CAPILLARY BLOOD / Unknown 01/14/2021 11:49 EST 01/14/2021 11:50 EST us Gela Borges MD POINT OF CARE TEST ORDERABLES Final Result Performing Organization Address City/[facility] Co de Phone Number [facility] [address] [place] [address] * ORDERS - SCANNED (01/14/2021 11:11 EST) 01/14/2021 11:1 1 EST us Scan 2 [employer] Shop Specialist ADMISSION ORDERABLES Final Result * POCT GLUCOSE, INTERFACED (01/14/2021 9:07 EST) Glucose, POC 99 70 - 100 mg/dL 01/14/2021 9:31 EST [facility] HN LAB POC COMMENT (GLUCOSE) Test Performed by Nursing Services 01/14/2021 9:31 EST [facility] Blood CAPILLARY BLOOD / Unknown 01/14/2021 9:07 EST 01/14/2021 9:31 EST us Gela Borges MD POINT OF CARE TEST ORDERABLES Final Result [facility] [address] [place] [address] * (ABNORMAL) COMPLETE BLOOD COUNT (01/14/2021 5:36 EST) WBC 9.80 4.00 - 10.40 K/cmm 01/14/2021 5:48 [facility] RBC 3.17(L) 4.36 - 5.78 M/cmm 01/14/2021 5:48 [facility] Hemoglobin 9.7(L) 13.8 - 17.3 gm/dL 01/14/2021 5:48 [facility] HCT 28.6(L) 39.5 - 50.2 % 01/14/2021 5:48 [facility] MCV 90 81 - 95 fl 01/14/2021 5:48 [facility] MCH 30.6 27.6 - 33.0 pg 01/14/2021 5:48 [facility] MCHC 33.9 32.8 - 36.4 gm/dL 01/14/2021 5:48 [facility] RDW-CV 13.2 <14.2 % 01/14/2021 5:48 [facility] RDW-SD 43.1 <46.0 fl 01/14/2021 5:48 [facility] PLT 362 141 - 377 K/cmm 01/14/2021 5:48 [facility] MPV 9.2(L) 9.5 - 12.7 fl 01/14/2021 5:48 [facility] Blood BLOOD SAMPLE TAKEN FROM CENTRAL LINE / Unknown Venipuncture / Unknown 01/14/2021 5:36 EST 01/14/2021 5:42 EST us Desiree Marcano DO HEMATOLOGY & PF4 ORDERABLES Fi nal Result [facility] [address] [place] [address] * (ABNORMAL) BASIC METABOLIC PANEL (BMP) (01/14/2021 5:36 EST) Sodium 137 136 - 145 mmol/L 01/14/2021 6:09 [facility] Potassium 4.3 3.5 - 5.0 mmol/L 01/14/2021 6:09 [facility] Chloride 101 96 - 110 mmol/L 01/14/2021 6:09 [facility] CO2 Total 29 22 - 32 mmol/L 01/14/2021 6:09 [facility] Anion Gap 7(L) 8 - 16 01/14/2021 6:09 [facility] Glucose 122(H) 70 - 100 mg/dL 01/14/2021 6:09 [facility] Calcium 9.3 8.5 - 10.5 mg/dL 01/14/2021 6:09 [facility] BUN 17 10 - 26 mg/dL 01/14/2021 6:09 [facility] Creatinine 0.59(L) 0.66 - 1.25 mg/dL 01/14/2021 6:09 [facility] eGFR 111 >60 mL/min/1.73 m2 01/14/2021 6:09 [facility] Blood VENOUS BLOOD / Unknown Venipuncture / Unknown 01/14/2021 5:36 EST 01/14/2021 5:42 EST Desiree Marcano DO CHEMISTRY & BLOOD GAS ORDERABL ES Final Result [facility] [address] [place] [address] * POCT GLUCOSE, INTERFACED (01/13/2021 22:58 EST) Glucose, POC 94 70 - 100 mg/dL 01/14/2021 2:57 EST [facility] HN LAB POC COMMENT (GLUCOSE) Test Performed by Nursing Services 01/14/2021 2:57 [facility] Blood CAPILLARY BLOOD / Unknown 01/13/2021 22:58 EST 01/14/2021 2:57 EST us Ti Maloney MD POINT OF CARE TEST ORDERABLES Fi nal Result Performing Organization Address City/[facility]/ZIP Co de Phone Number [facility] [address] [place] [address] * (ABNORMAL) POCT GLUCOSE, INTERFACED (01/13/2021 21:27 EST) Glucose, POC 112(H) 70 - 100 mg/dL 01/13/2021 21:28 EST [facility] HN LAB POC COMMENT (GLUCOSE) Test Performed by Nursing Services 01/13/2021 21:28 EST [facility] Blood CAPILLARY BLOOD / Unknown 01/13/2021 21:27 EST 01/13/2021 21:28 EST us Gela Borges MD POINT OF CARE TEST ORDERABLES Final Result Performing Organization Address City/[facility]/ZIP Co de Phone Number [facility] [address] [place] [address] * (ABNORMAL) POCT GLUCOSE, INTERFACED (01/13/2021 16:45 EST) Glucose, POC 135(H) 70 - 100 mg/dL 01/13/2021 20:44 EST [facility] HN LAB POC COMMENT (GLUCOSE) Test Performed by Nursing Services 01/13/2021 20:44 EST [facility] Blood CAPILLARY BLOOD / Unknown 01/13/2021 16:45 EST 01/13/2021 20:44 EST us Gela Borges MD POINT OF CARE TEST ORDERABLES Final Result [facility] [address] [place] [address] * (ABNORMAL) POCT GLUCOSE, INTERFACED (01/13/2021 11:34 EST) Glucose, POC 139(H) 70 - 100 mg/dL 01/13/2021 11:36 [facility] HN LAB POC COMMENT (GLUCOSE) Test Performed by Nursing Services 01/13/2021 11:36 [facility] Blood CAPILLARY BLOOD / Unknown 01/13/2021 11:34 EST 01/13/2021 11:36 EST Gela Borges MD POINT OF CARE TEST ORDERABLES Final Result [facility] [address] [place] [address] * (ABNORMAL) BASIC METABOLIC PANEL (BMP) (01/13/2021 7:45 EST) Pathologist [facility] Sodium 135(L) 136 - 145 mmol/L 01/13/2021 8:56 [facility] Potassium 4.6 3.5 - 5.0 mmol/L 01/13/2021 8:56 [facility] Chloride 98 96 - 110 mmol/L 01/13/2021 8:56 [facility] CO2 Total 29 22 - 32 mmol/L 01/13/2021 8:56 [facility] Anion Gap 8 8 - 16 01/13/2021 8:56 [facility] Glucose 120(H) 70 - 100 mg/dL 01/13/2021 8:56 [facility] Calcium 9.4 8.5 - 10.5 mg/dL 01/13/2021 8:56 [facility] BUN 18 10 - 26 mg/dL 01/13/2021 8:56 [facility] Creatinine 0.63(L) 0.66 - 1.25 mg/dL 01/13/2021 8:56 [facility] eGFR 108 >60 mL/min/1.73 m2 01/13/2021 8:56 [facility] Blood VENOUS BLOOD / Unknown Venipuncture / Unknown 01/13/2021 7:45 EST 01/13/2021 8:16 EST Desiree Marcano DO CHEMISTRY & BLOOD GAS ORDERABL ES Final Result [facility] [address] [place] [address] * (ABNORMAL) COMPLETE BLOOD COUNT (01/13/2021 7:45 EST) WBC 9.91 4.00 - 10.40 K/cmm 01/13/2021 8:14 [facility] RBC 3.26(L) 4.36 - 5.78 M/cmm 01/13/2021 8:14 [facility] Hemoglobin 9.6(L) 13.8 - 17.3 gm/dL 01/13/2021 8:14 [facility] HCT 29.3(L) 39.5 - 50.2 % 01/13/2021 8:14 [facility] MCV 90 81 - 95 fl 01/13/2021 8:14 [facility] MCH 29.4 27.6 - 33.0 pg 01/13/2021 8:14 [facility] MCHC 32.8 32.8 - 36.4 gm/dL 01/13/2021 8:14 [facility] RDW-CV 13.4 <14.2 % 01/13/2021 8:14 [facility] RDW-SD 43.9 <46.0 fl 01/13/2021 8:14 [facility] PLT 364 141 - 377 K/cmm 01/13/2021 8:14 [facility] MPV 9.2(L) 9.5 - 12.7 fl 01/13/2021 8:14 [facility] Blood VENOUS BLOOD / Unknown Venipuncture / Unknown 01/13/2021 7:45 EST 01/13/2021 8:07 EST Desiree Marcano DO HEMATOLOGY & PF4 ORDERABLES Fi nal Result [facility] [address] [place] [address] * POCT GLUCOSE, INTERFACED (01/13/2021 7:07 EST) Glucose, POC 79 70 - 100 mg/dL 01/13/2021 7:08 EST [facility] HN LAB POC COMMENT (GLUCOSE) Test Performed by Nursing Services 01/13/2021 7:08 EST [facility] Blood CAPILLARY BLOOD / Unknown 01/13/2021 7:07 EST 01/13/2021 7:08 EST us Ti Maloney MD POINT OF CARE TEST ORDERABLES Fi nal Result [facility] [address] [place] [address] * POCT GLUCOSE, INTERFACED (01/13/2021 6:48 EST) Glucose, POC 77 70 - 100 mg/dL 01/13/2021 6:51 EST [facility] HN LAB POC COMMENT (GLUCOSE) Test Performed by Nursing Services 01/13/2021 6:51 EST [facility] Blood CAPILLARY BLOOD / Unknown 01/13/2021 6:48 EST 01/13/2021 6:51 EST us Ti Maloney MD POINT OF CARE TEST ORDERABLES Fi nal Result [facility] [address] [place] [address] * (ABNORMAL) POCT GLUCOSE, INTERFACED (01/13/2021 6:26 EST) Glucose, POC 64(L) 70 - 100 mg/dL 01/13/2021 6:31 EST [facility] HN LAB POC COMMENT (GLUCOSE) Test Performed by Nursing Services 01/13/2021 6:31 EST [facility] Blood CAPILLARY BLOOD / Unknown 01/13/2021 6:26 EST 01/13/2021 6:31 EST us Ti Maloney MD POINT OF CARE TEST ORDERABLES Fi nal Result [facility] [address] [place] [address] * (ABNORMAL) POCT GLUCOSE, INTERFACED (01/13/2021 6:07 EST) Glucose, POC 69(L) 70 - 100 mg/dL 01/13/2021 6:11 EST [facility] HN LAB POC COMMENT (GLUCOSE) Test Performed by Nursing Services 01/13/2021 6:11 EST [facility] Blood CAPILLARY BLOOD / Unknown 01/13/2021 6:07 EST 01/13/2021 6:11 EST us Gela Borges MD POINT OF CARE TEST ORDERABLES Final Result Performing Organization Address City/[facility]/ZIP Co de Phone Number [facility] [address] [place] [address] * POCT GLUCOSE, INTERFACED (01/13/2021 1:13 EST) Glucose, POC 79 70 - 100 mg/dL 01/13/2021 1:26 EST [facility] HN LAB POC COMMENT (GLUCOSE) Test Performed by Nursing Services 01/13/2021 1:26 EST [facility] Blood CAPILLARY BLOOD / Unknown 01/13/2021 1:13 EST 01/13/2021 1:26 EST us Ti Maloney MD POINT OF CARE TEST ORDERABLES Fi nal Result [facility] [address] [place] [address] * POCT GLUCOSE, INTERFACED (01/13/2021 0:18 EST) Glucose, POC 78 70 - 100 mg/dL 01/13/2021 0:23 EST [facility] HN LAB POC COMMENT (GLUCOSE) Test Performed by Nursing Services 01/13/2021 0:23 EST [facility] Blood CAPILLARY BLOOD / Unknown 01/13/2021 0:18 EST 01/13/2021 0:23 EST us Ti Maloney MD POINT OF CARE TEST ORDERABLES Fi nal Result [facility] [address] [place] [address] * (ABNORMAL) POCT GLUCOSE, INTERFACED (01/13/2021 0:01 EST) Glucose, POC 66(L) 70 - 100 mg/dL 01/13/2021 0:06 EST [facility] HN LAB POC COMMENT (GLUCOSE) Test Performed by Nursing Services 01/13/2021 0:06 EST [facility] Blood CAPILLARY BLOOD / Unknown 01/13/2021 0:01 EST 01/13/2021 0:06 EST us Ti Maloney MD POINT OF CARE TEST ORDERABLES Fi nal Result Performing Organization Address City/[facility]/ZIP Co de Phone Number [facility] [address] [place] [address] * (ABNORMAL) POCT GLUCOSE, INTERFACED (01/12/2021 21:07 EST) Glucose, POC 186(H) 70 - 100 mg/dL 01/12/2021 21:32 EST [facility] HN LAB POC COMMENT (GLUCOSE) Test Performed by Nursing Services 01/12/2021 21:32 EST [facility] Blood CAPILLARY BLOOD / Unknown 01/12/2021 21:07 EST 01/12/2021 21:32 EST us Ti Maloney MD POINT OF CARE TEST ORDERABLES Fi nal Result [facility] [address] [place] [address] * (ABNORMAL) POCT GLUCOSE, INTERFACED (01/12/2021 20:07 EST) Glucose, POC 211(H) 70 - 100 mg/dL 01/12/2021 20:12 EST [facility] HN LAB POC COMMENT (GLUCOSE) Test Performed by Nursing Services 01/12/2021 20:12 EST [facility] Blood CAPILLARY BLOOD / Unknown 01/12/2021 20:07 EST 01/12/2021 20:12 EST us Gela Borges MD POINT OF CARE TEST ORDERABLES Final Result Performing Organization Address City/[facility] Co de Phone Number [facility] [address] [place] [address] * (ABNORMAL) POCT GLUCOSE, INTERFACED (01/12/2021 16:46 EST) Glucose, POC 154(H) 70 - 100 mg/dL 01/12/2021 17:10 EST [facility] HN LAB POC COMMENT (GLUCOSE) Test Performed by Nursing Services 01/12/2021 17:10 EST [facility] Blood CAPILLARY BLOOD / Unknown 01/12/2021 16:46 EST 01/12/2021 17:10 EST us Gela Borges MD POINT OF CARE TEST ORDERABLES Final Result Performing Organization Address [facility] de Phone Number [facility] [address] [place] [address] * (ABNORMAL) POCT GLUCOSE, INTERFACED (01/12/2021 13:25 EST) Glucose, POC 160(H) 70 - 100 mg/dL 01/12/2021 13:26 EST [facility] HN LAB POC COMMENT (GLUCOSE) Test Performed by Nursing Services 01/12/2021 13:26 EST [facility] Blood CAPILLARY BLOOD / Unknown 01/12/2021 13:25 EST 01/12/2021 13:26 EST us Ti Maloney MD POINT OF CARE TEST ORDERABLES Fi nal Result Performing Organization Address [facility] [place]/ZIP Co de Phone Number [facility] [address] [place] [address] * POCT GLUCOSE, INTERFACED (01/12/2021 12:46 EST) Glucose, POC 89 70 - 100 mg/dL 01/12/2021 12:50 EST [facility] HN LAB POC COMMENT (GLUCOSE) Test Performed by Nursing Services 01/12/2021 12:50 EST [facility] Blood CAPILLARY BLOOD / Unknown 01/12/2021 12:46 EST 01/12/2021 12:50 EST Ti Maloney MD POINT OF CARE TEST ORDERABLES Fi nal Result Performing Organization Address City/[facility] [place]/ZIP Co de Phone Number [facility] [address] [place] [address] * (ABNORMAL) POCT GLUCOSE, INTERFACED (01/12/2021 12:33 EST) Glucose, POC 69(L) 70 - 100 mg/dL 01/12/2021 12:38 EST [facility] HN LAB POC COMMENT (GLUCOSE) Test Performed by Nursing Services 01/12/2021 12:38 EST [facility] Blood CAPILLARY BLOOD / Unknown 01/12/2021 12:33 EST 01/12/2021 12:38 EST Ti Maloney MD POINT OF CARE TEST ORDERABLES Fi nal Result [facility] [address] [place] [address] * (ABNORMAL) POCT GLUCOSE, INTERFACED (01/12/2021 12:00 EST) Glucose, POC 56(L) 70 - 100 mg/dL 01/12/2021 12:38 EST [facility] HN LAB POC COMMENT (GLUCOSE) Test Performed by Nursing Services 01/12/2021 12:38 EST [facility] Blood CAPILLARY BLOOD / Unknown 01/12/2021 12:00 EST 01/12/2021 12:38 EST us Ti Maloney MD POINT OF CARE TEST ORDERABLES Fi nal Result [facility] [address] [place] [address] * (ABNORMAL) POCT GLUCOSE, INTERFACED (01/12/2021 11:36 EST) Glucose, POC 50(L) 70 - 100 mg/dL 01/12/2021 11:41 EST [facility] HN LAB POC COMMENT (GLUCOSE) Test Performed by Nursing Services 01/12/2021 11:41 EST [facility] Blood CAPILLARY BLOOD / Unknown 01/12/2021 11:36 EST 01/12/2021 11:41 EST us Gela Borges MD POINT OF CARE TEST ORDERABLES Final Result Performing Organization Address City/[facility] [place]/ZIP Co de Phone Number [facility] [address] [place] [address] * (ABNORMAL) POCT GLUCOSE, INTERFACED (01/12/2021 7:24 EST) Glucose, POC 141(H) 70 - 100 mg/dL 01/12/2021 7:25 EST [facility] HN LAB POC COMMENT (GLUCOSE) Test Performed by Nursing Services 01/12/2021 7:25 EST [facility] Blood CAPILLARY BLOOD / Unknown 01/12/2021 7:24 EST 01/12/2021 7:25 EST us Gela Borges MD POINT OF CARE TEST ORDERABLES Final Result [facility] [address] [place] [address] * (ABNORMAL) POCT GLUCOSE, INTERFACED (01/11/2021 22:31 EST) Glucose, POC 174(H) 70 - 100 mg/dL 01/11/2021 22:33 EST [facility] HN LAB POC COMMENT (GLUCOSE) Test Performed by Nursing Services 01/11/2021 22:33 EST [facility] Blood CAPILLARY BLOOD / Unknown 01/11/2021 22:31 EST 01/11/2021 22:33 EST Gela Borges MD POINT OF CARE TEST ORDERABLES Final Result Performing Organization Address City/[facility] [place]/ZIP Co de Phone Number [facility] [address] [place] [address] * POCT GLUCOSE, INTERFACED (01/11/2021 19:06 EST) Glucose, POC 84 70 - 100 mg/dL 01/11/2021 20:29 EST [facility] HN LAB POC COMMENT (GLUCOSE) Test Performed by Nursing Services 01/11/2021 20:29 EST [facility] Blood CAPILLARY BLOOD / Unknown 01/11/2021 19:06 EST 01/11/2021 20:29 EST us Gela Borges MD POINT OF CARE TEST ORDERABLES Final Result Performing Organization Address City/[facility] [place]/ZIP Co de Phone Number [facility] [address] [place] [address] * (ABNORMAL) POCT GLUCOSE, INTERFACED (01/11/2021 13:08 EST) Glucose, POC 107(H) 70 - 100 mg/dL 01/11/2021 13:18 EST [facility] HN LAB POC COMMENT (GLUCOSE) Test Performed by Nursing Services 01/11/2021 13:18 EST [facility] Blood CAPILLARY BLOOD / Unknown 01/11/2021 13:08 EST 01/11/2021 13:18 EST us Gela Borges MD POINT OF CARE TEST ORDERABLES Final Result Performing Organization Address City/[facility] [place]/ZIP Co de Phone Number [facility] [address] [place] [address] * (ABNORMAL) POCT GLUCOSE, INTERFACED (01/11/2021 8:12 EST) Glucose, POC 108(H) 70 - 100 mg/dL 01/11/2021 8:17 [facility] HN LAB POC COMMENT (GLUCOSE) Test Performed by Nursing Services 01/11/2021 8:17 [facility] Blood CAPILLARY BLOOD / Unknown 01/11/2021 8:12 EST 01/11/2021 8:17 EST Gela Borges MD POINT OF CARE TEST ORDERABLES Final Result [facility] [address] [place] [address] * (ABNORMAL) BASIC METABOLIC PANEL (BMP) (01/11/2021 8:03 EST) Sodium 138 136 - 145 mmol/L 01/11/2021 8:39 [facility] Potassium 4.5 3.5 - 5.0 mmol/L 01/11/2021 8:39 [facility] Chloride 98 96 - 110 mmol/L 01/11/2021 8:39 [facility] CO2 Total 28 22 - 32 mmol/L 01/11/2021 8:39 [facility] Anion Gap 12 8 - 16 01/11/2021 8:39 [facility] Glucose 132(H) 70 - 100 mg/dL 01/11/2021 8:39 [facility] Calcium 9.5 8.5 - 10.5 mg/dL 01/11/2021 8:39 [facility] BUN 21 10 - 26 mg/dL 01/11/2021 8:39 [facility] Creatinine 0.62(L) 0.66 - 1.25 mg/dL 01/11/2021 8:39 [facility] eGFR 109 >60 mL/min/1.73 m2 01/11/2021 8:39 [facility] Blood VENOUS BLOOD / Unknown Venipuncture / Unknown 01/11/2021 8:03 EST 01/11/2021 8:08 EST us Sea Gomez MD CHEMISTRY & BLOOD GAS ORDERABLES Final Result Performing Organization Address City/[facility] [place]/ZIP Co de Phone Number [facility] [address] [place] [address] * (ABNORMAL) COMPLETE BLOOD COUNT (01/11/2021 8:03 EST) WBC 8.57 4.00 - 10.40 K/cmm 01/11/2021 8:23 [facility] RBC 3.15(L) 4.36 - 5.78 M/cmm 01/11/2021 8:23 [facility] Hemoglobin 9.7(L) 13.8 - 17.3 gm/dL 01/11/2021 8:23 [facility] HCT 28.9(L) 39.5 - 50.2 % 01/11/2021 8:23 [facility] MCV 92 81 - 95 fl 01/11/2021 8:23 [facility] MCH 30.8 27.6 - 33.0 pg 01/11/2021 8:23 [facility] MCHC 33.6 32.8 - 36.4 gm/dL 01/11/2021 8:23 [facility] RDW-CV 13.4 <14.2 % 01/11/2021 8:23 [facility] RDW-SD 44.7 <46.0 fl 01/11/2021 8:23 [facility] PLT 398(H) 141 - 377 K/cmm 01/11/2021 8:23 [facility] MPV 9.3(L) 9.5 - 12.7 fl 01/11/2021 8:23 [facility] Blood BLOOD SAMPLE TAKEN FROM CENTRAL LINE / Unknown Venipuncture / Unknown 01/11/2021 8:03 EST 01/11/2021 8:08 EST us Sea Gomez MD HEMATOLOGY & PF4 ORDERABLES Sobia l Result [facility] [address] [place] [address] * (ABNORMAL) POCT GLUCOSE, INTERFACED (01/10/2021 20:47 EST) Glucose, POC 151(H) 70 - 100 mg/dL 01/10/2021 20:56 EST [facility] HN LAB POC COMMENT (GLUCOSE) Test Performed by Nursing Services 01/10/2021 20:56 EST [facility] Blood CAPILLARY BLOOD / Unknown 01/10/2021 20:47 EST 01/10/2021 20:56 EST us Gela Borges MD POINT OF CARE TEST ORDERABLES Final Result Performing Organization Address City/[facility] [place]/ZIP Co de Phone Number [facility] [address] [place] [address] * (ABNORMAL) POCT GLUCOSE, INTERFACED (01/10/2021 18:11 EST) Glucose, POC 134(H) 70 - 100 mg/dL 01/10/2021 18:12 EST [facility] HN LAB POC COMMENT (GLUCOSE) Test Performed by Nursing Services 01/10/2021 18:12 EST [facility] Blood CAPILLARY BLOOD / Unknown 01/10/2021 18:11 EST 01/10/2021 18:12 EST us Gela Borges MD POINT OF CARE TEST ORDERABLES Final Result [facility] [address] [place] [address] * (ABNORMAL) POCT GLUCOSE, INTERFACED (01/10/2021 12:33 EST) Glucose, POC 116(H) 70 - 100 mg/dL 01/10/2021 12:34 EST [facility] HN LAB POC COMMENT (GLUCOSE) Test Performed by Nursing Services 01/10/2021 12:34 EST [facility] Blood CAPILLARY BLOOD / Unknown 01/10/2021 12:33 EST 01/10/2021 12:34 EST Gela Borges MD POINT OF CARE TEST ORDERABLES Final Result Performing Organization Address City/[facility] [place]/ZIP Co de Phone Number [facility] [address] [place] [address] * (ABNORMAL) POCT GLUCOSE, INTERFACED (01/10/2021 8:00 EST) Glucose, POC 160(H) 70 - 100 mg/dL 01/10/2021 8:01 EST [facility] HN LAB POC COMMENT (GLUCOSE) Test Performed by Nursing Services 01/10/2021 8:01 EST [facility] Blood CAPILLARY BLOOD / Unknown 01/10/2021 8:00 EST 01/10/2021 8:01 EST us Gela Borges MD POINT OF CARE TEST ORDERABLES Final Result Performing Organization Address [facility] [place]/[facility] Co de Phone Number [facility] [address] [place] [address] * (ABNORMAL) POCT GLUCOSE, INTERFACED (01/09/2021 20:21 EST) Glucose, POC 205(H) 70 - 100 mg/dL 01/09/2021 20:22 EST [facility] HN LAB POC COMMENT (GLUCOSE) Test Performed by Nursing Services 01/09/2021 20:22 EST [facility] Blood CAPILLARY BLOOD / Unknown 01/09/2021 20:21 EST 01/09/2021 20:22 EST us Gela Borges MD POINT OF CARE TEST ORDERABLES Final Result Performing Organization Address City/[facility] [place]/ZIP Co de Phone Number [facility] [address] [place] [address] * (ABNORMAL) POCT GLUCOSE, INTERFACED (01/09/2021 17:09 EST) Glucose, POC 157(H) 70 - 100 mg/dL 01/09/2021 17:13 EST [facility] HN LAB POC COMMENT (GLUCOSE) Test Performed by Nursing Services 01/09/2021 17:13 EST [facility] Blood CAPILLARY BLOOD / Unknown 01/09/2021 17:09 EST 01/09/2021 17:13 EST Gela Borges MD POINT OF CARE TEST ORDERABLES Final Result Performing Organization Address City/[facility] [place]/ZIP Co de Phone Number [facility] [address] [place] [address] * (ABNORMAL) POCT GLUCOSE, INTERFACED (01/09/2021 11:48 EST) Glucose, POC 146(H) 70 - 100 mg/dL 01/09/2021 11:53 EST [facility] HN LAB POC COMMENT (GLUCOSE) Test Performed by Nursing Services 01/09/2021 11:53 EST [facility] Blood CAPILLARY BLOOD / Unknown 01/09/2021 11:48 EST 01/09/2021 11:53 EST us Gela Borges MD POINT OF CARE TEST ORDERABLES Final Result Performing Organization Address [facility] [place]/[facility] Co de Phone Number [facility] [address] [place] [address] * (ABNORMAL) POCT GLUCOSE, INTERFACED (01/09/2021 8:19 EST) Glucose, POC 220(H) 70 - 100 mg/dL 01/09/2021 8:23 EST [facility] HN LAB POC COMMENT (GLUCOSE) Test Performed by Nursing Services 01/09/2021 8:23 EST [facility] Blood CAPILLARY BLOOD / Unknown 01/09/2021 8:19 EST 01/09/2021 8:23 EST us Gela Borges MD POINT OF CARE TEST ORDERABLES Final Result Performing Organization Address City/[facility] [place]/ZIP Co de Phone Number [facility] [address] [place] [address] * (ABNORMAL) BASIC METABOLIC PANEL (BMP) (01/09/2021 5:47 EST) Sodium 134(L) 136 - 145 mmol/L 01/09/2021 6:22 [facility] Potassium 4.5 3.5 - 5.0 mmol/L 01/09/2021 6:22 [facility] Chloride 98 96 - 110 mmol/L 01/09/2021 6:22 [facility] CO2 Total 28 22 - 32 mmol/L 01/09/2021 6:22 [facility] Anion Gap 8 8 - 16 01/09/2021 6:22 [facility] Glucose 245(H) 70 - 100 mg/dL 01/09/2021 6:22 [facility] Calcium 9.4 8.5 - 10.5 mg/dL 01/09/2021 6:22 [facility] BUN 19 10 - 26 mg/dL 01/09/2021 6:22 [facility] Creatinine 0.54(L) 0.66 - 1.25 mg/dL 01/09/2021 6:22 [facility] eGFR 115 >60 mL/min/1.7 3m2 01/09/2021 6:22 [facility] Comment:eGFR calculated sarahi krishnan CKD-EPI equation for non- Americans. Multiply eGFR by 1.16 for patients. Blood VENOUS BLOOD / Unknown Venipuncture / Unknown 01/09/2021 5:47 EST 01/09/2021 5:53 EST us Sea Gomez MD CHEMISTRY & BLOOD GAS ORDERABLES Final Result [facility] [address] [place] [address] * (ABNORMAL) COMPLETE BLOOD COUNT (01/09/2021 5:47 EST) WBC 7.29 4.00 - 10.40 K/cmm 01/09/2021 6:01 [facility] RBC 3.29(L) 4.36 - 5.78 M/cmm 01/09/2021 6:01 [facility] Hemoglobin 9.7(L) 13.8 - 17.3 gm/dL 01/09/2021 6:01 [facility] HCT 29.7(L) 39.5 - 50.2 % 01/09/2021 6:01 [facility] MCV 90 81 - 95 fl 01/09/2021 6:01 [facility] MCH 29.5 27.6 - 33.0 pg 01/09/2021 6:01 [facility] MCHC 32.7(L) 32.8 - 36.4 gm/dL 01/09/2021 6:01 [facility] RDW-CV 13.2 <14.2 % 01/09/2021 6:01 [facility] RDW-SD 42.9 <46.0 fl 01/09/2021 6:01 [facility] PLT 375 141 - 377 K/cmm 01/09/2021 6:01 [facility] MPV 9.3(L) 9.5 - 12.7 fl 01/09/2021 6:01 [facility] Blood VENOUS BLOOD / Unknown Venipuncture / Unknown 01/09/2021 5:47 EST 01/09/2021 5:53 EST Sea Gomez MD HEMATOLOGY & PF4 ORDERABLES Sobia l Result [facility] [address] [place] [address] * (ABNORMAL) POCT GLUCOSE, INTERFACED (01/08/2021 21:02 EDT) Glucose, POC 169(H) 70 - 100 mg/dL 01/08/2021 21:07 EDT [facility] HN LAB POC COMMENT (GLUCOSE) Test Performed by Nursing Services 01/08/2021 21:07 EDT [facility] Blood CAPILLARY BLOOD / Unknown 01/08/2021 21:02 EDT 01/08/2021 21:07 EDT Gela Borges MD POINT OF CARE TEST ORDERABLES Final Result [facility] [address] [place] [address] * (ABNORMAL) POCT GLUCOSE, INTERFACED (01/08/2021 17:36 EDT) Glucose, POC 126(H) 70 - 100 mg/dL 01/08/2021 17:37 EDT [facility] HN LAB POC COMMENT (GLUCOSE) Test Performed by Nursing Services 01/08/2021 17:37 EDT [facility] Blood CAPILLARY BLOOD / Unknown 01/08/2021 17:36 EDT 01/08/2021 17:37 EDT Gela Borges MD POINT OF CARE TEST ORDERABLES Final Result Performing Organization Address City/[facility] [place]/ZIP Co de Phone Number [facility] [address] [place] [address] * (ABNORMAL) POCT GLUCOSE, INTERFACED (01/08/2021 12:27 EDT) Glucose, POC 106(H) 70 - 100 mg/dL 01/08/2021 12:27 EDT [facility] HN LAB POC COMMENT (GLUCOSE) Test Performed by Nursing Services 01/08/2021 12:27 EDT [facility] Blood CAPILLARY BLOOD / Unknown 01/08/2021 12:27 EDT 01/08/2021 12:27 EDT Gela Borges MD POINT OF CARE TEST ORDERABLES Final Result [facility] [address] [place] [address] * (ABNORMAL) POCT GLUCOSE, INTERFACED (01/08/2021 7:59 EDT) Glucose, POC 143(H) 70 - 100 mg/dL 01/08/2021 8:04 EDT [facility] HN LAB POC COMMENT (GLUCOSE) Test Performed by Nursing Services 01/08/2021 8:04 EDT [facility] Blood CAPILLARY BLOOD / Unknown 01/08/2021 7:59 EDT 01/08/2021 8:04 EDT Gela Borges MD POINT OF CARE TEST ORDERABLES Final Result Performing Organization Address [facility] [place]/ZIP Co de Phone Number [facility] [address] [place] [address] * (ABNORMAL) POCT GLUCOSE, INTERFACED (01/07/2021 21:30 EDT) Glucose, POC 165(H) 70 - 100 mg/dL 01/07/2021 21:31 EDT [facility] HN LAB POC COMMENT (GLUCOSE) Test Performed by Nursing Services 01/07/2021 21:31 EDT [facility] Blood CAPILLARY BLOOD / Unknown 01/07/2021 21:30 EDT 01/07/2021 21:31 EDT Gela Borges MD POINT OF CARE TEST ORDERABLES Final Result Performing Organization Address [facility] [place]/[facility] Co de Phone Number [facility] [address] [place] [address] * (ABNORMAL) POCT GLUCOSE, INTERFACED (01/07/2021 18:38 EDT) Glucose, POC 221(H) 70 - 100 mg/dL 01/07/2021 18:43 EDT [facility] HN LAB POC COMMENT (GLUCOSE) Test Performed by Nursing Services 01/07/2021 18:43 EDT [facility] Blood CAPILLARY BLOOD / Unknown 01/07/2021 18:38 EDT 01/07/2021 18:43 EDT Gela Borges MD POINT OF CARE TEST ORDERABLES Final Result [facility] [address] [place] [address] * (ABNORMAL) POCT GLUCOSE, INTERFACED (01/07/2021 12:32 EDT) Glucose, POC 210(H) 70 - 100 mg/dL 01/07/2021 13:08 EDT [facility] HN LAB POC COMMENT (GLUCOSE) Test Performed by Nursing Services 01/07/2021 13:08 EDT [facility] Blood CAPILLARY BLOOD / Unknown 01/07/2021 12:32 EDT 01/07/2021 13:08 EDT us Tj Hitchcock MD POINT OF CARE TEST ORDERABLES Fi nal Result Performing Organization Address City/[facility] [place]/ZIP Co de Phone Number [facility] [address] [place] [address] * (ABNORMAL) POCT GLUCOSE, INTERFACED (01/07/2021 8:06 EDT) Glucose, POC 198(H) 70 - 100 mg/dL 01/07/2021 12:33 EDT [facility] HN LAB POC COMMENT (GLUCOSE) Test Performed by Nursing Services 01/07/2021 12:33 EDT [facility] Blood CAPILLARY BLOOD / Unknown 01/07/2021 8:06 EDT 01/07/2021 12:33 EDT us Gela Borges MD POINT OF CARE TEST ORDERABLES Final Result Performing Organization Address City/[facility] [place]/ZIP Co de Phone Number [facility] [address] [place] [address] * (ABNORMAL) POCT GLUCOSE, INTERFACED (01/07/2021 7:28 EDT) Glucose, POC 205(H) 70 - 100 mg/dL 01/07/2021 7:29 EDT [facility] HN LAB POC COMMENT (GLUCOSE) Test Performed by Nursing Services 01/07/2021 7:29 EDT [facility] Blood CAPILLARY BLOOD / Unknown 01/07/2021 7:28 EDT 01/07/2021 7:29 EDT Gela Borges MD POINT OF CARE TEST ORDERABLES Final Result [facility] [address] [place] [address] * (ABNORMAL) COMPLETE BLOOD COUNT (01/07/2021 5:56 EDT) WBC 8.72 4.00 - 10.40 K/cmm 01/07/2021 6:07 [facility] RBC 3.14(L) 4.36 - 5.78 M/cmm 01/07/2021 6:07 [facility] Hemoglobin 9.5(L) 13.8 - 17.3 gm/dL 01/07/2021 6:07 [facility] HCT 28.9(L) 39.5 - 50.2 % 01/07/2021 6:07 [facility] MCV 92 81 - 95 fl 01/07/2021 6:07 [facility] MCH 30.3 27.6 - 33.0 pg 01/07/2021 6:07 [facility] MCHC 32.9 32.8 - 36.4 gm/dL 01/07/2021 6:07 [facility] RDW-CV 13.6 <14.2 % 01/07/2021 6:07 [facility] RDW-SD 45.5 <46.0 fl 01/07/2021 6:07 [facility] PLT 396(H) 141 - 377 K/cmm 01/07/2021 6:07 [facility] MPV 9.1(L) 9.5 - 12.7 fl 01/07/2021 6:07 [facility] Blood VENOUS BLOOD / Unknown Venipuncture / Unknown 01/07/2021 5:56 EDT 01/07/2021 6:01 EDT Marciano Segovia MD HEMATOLOGY & PF4 ORDERABL ES Final Result [facility] [address] [place] [address] * (ABNORMAL) BASIC METABOLIC PANEL (BMP) (01/07/2021 5:56 EDT) Sodium 136 136 - 145 mmol/L 01/07/2021 7:00 EDT [facility] Potassium 4.7 3.5 - 5.0 mEq/L 01/07/2021 7:00 T [facility] Chloride 97 96 - 110 mEq/L 01/07/2021 7:00 EDT [facility] CO2 Total 29 22 - 32 mEq/L 01/07/2021 7:00 T [facility] Anion Gap 10 8 - 16 01/07/2021 7:00 T [facility] Glucose 198(H) 70 - 100 mg/dL 01/07/2021 7:00 T [facility] Calcium 9.3 8.5 - 10.5 mg/dL 01/07/2021 7:00 [facility] BUN 20 10 - 26 mg/dL 01/07/2021 7:00 T [facility] Creatinine 0.61(L) 0.66 - 1.25 mg/dL 01/07/2021 7:00 T [facility] eGFR 109 >60 mL/min/1.7 3m2 01/07/2021 7:00 [facility] Comment:eGFR calculated sarahi krishnan CKD-EPI equation for non- Americans. Multiply eGFR by 1.16 for patients. Blood VENOUS BLOOD / Unknown Venipuncture / Unknown 01/07/2021 5:56 EDT 01/07/2021 6:28 EDT Marciano Segovia MD CHEMISTRY & BLOOD GAS ORD ERABLES Final Result [facility] [address] [place] [address] * (ABNORMAL) POCT GLUCOSE, INTERFACED (01/06/2021 21:13 EDT) Glucose, POC 178(H) 70 - 100 mg/dL 01/06/2021 21:15 EDT [facility] HN LAB POC COMMENT (GLUCOSE) Test Performed by Nursing Services 01/06/2021 21:15 EDT [facility] Blood CAPILLARY BLOOD / Unknown 01/06/2021 21:13 EDT 01/06/2021 21:15 EDT Gela Borges MD POINT OF CARE TEST ORDERABLES Final Result Performing Organization Address City/[facility]/ZIP Co de Phone Number [facility] [address] [place] [address] * (ABNORMAL) POCT GLUCOSE, INTERFACED (01/06/2021 17:27 EDT) Glucose, POC 204(H) 70 - 100 mg/dL 01/06/2021 17:29 EDT [facility] HN LAB POC COMMENT (GLUCOSE) Test Performed by Nursing Services 01/06/2021 17:29 EDT [facility] Blood CAPILLARY BLOOD / Unknown 01/06/2021 17:27 EDT 01/06/2021 17:29 EDT us Gela Borges MD POINT OF CARE TEST ORDERABLES Final Result [facility] [address] [place] [address] * (ABNORMAL) POCT GLUCOSE, INTERFACED (01/06/2021 12:30 EDT) Glucose, POC 111(H) 70 - 100 mg/dL 01/06/2021 12:34 EDT [facility] HN LAB POC COMMENT (GLUCOSE) Test Performed by Nursing Services 01/06/2021 12:34 EDT [facility] Blood CAPILLARY BLOOD / Unknown 01/06/2021 12:30 EDT 01/06/2021 12:34 EDT Gela Borges MD POINT OF CARE TEST ORDERABLES Final Result Performing Organization Address [facility] Co de Phone Number [facility] [address] [place] [address] * (ABNORMAL) POCT GLUCOSE, INTERFACED (01/06/2021 8:27 EDT) Glucose, POC 142(H) 70 - 100 mg/dL 01/06/2021 8:35 EDT [facility] HN LAB POC COMMENT (GLUCOSE) Test Performed by Nursing Services 01/06/2021 8:35 EDT [facility] Blood CAPILLARY BLOOD / Unknown 01/06/2021 8:27 EDT 01/06/2021 8:35 EDT Gela Borges MD POINT OF CARE TEST ORDERABLES Final Result Performing Organization Address [facility] de Phone Number [facility] [address] [place] [address] * (ABNORMAL) COMPLETE BLOOD COUNT (01/06/2021 6:29 EDT) WBC 8.60 4.00 - 10.40 K/cmm 01/06/2021 6:51 EDT [facility] RBC 3.18(L) 4.36 - 5.78 M/cmm 01/06/2021 6:51 EDT [facility] Hemoglobin 9.5(L) 13.8 - 17.3 gm/dL 01/06/2021 6:51 EDT [facility] HCT 29.4(L) 39.5 - 50.2 % 01/06/2021 6:51 EDT [facility] MCV 93 81 - 95 fl 01/06/2021 6:51 EDT [facility] MCH 29.9 27.6 - 33.0 pg 01/06/2021 6:51 [facility] MCHC 32.3(L) 32.8 - 36.4 gm/dL 01/06/2021 6:51 [facility] RDW-CV 13.5 <14.2 % 01/06/2021 6:51 [facility] RDW-SD 45.6 <46.0 fl 01/06/2021 6:51 [facility] PLT 394(H) 141 - 377 K/cmm 01/06/2021 6:51 [facility] MPV 9.2(L) 9.5 - 12.7 fl 01/06/2021 6:51 [facility] Blood VENOUS BLOOD / Unknown Venipuncture / Unknown 01/06/2021 6:29 EDT 01/06/2021 6:36 EDT us Marciano Segovia MD HEMATOLOGY & PF4 ORDERABL ES Final Result [facility] [address] [place] [address] * (ABNORMAL) BASIC METABOLIC PANEL (BMP) (01/06/2021 6:29 EDT) Sodium 135(L) 136 - 145 mmol/L 01/06/2021 7:19 [facility] Potassium 4.8 3.5 - 5.0 mEq/L 01/06/2021 7:19 [facility] Chloride 96 96 - 110 mEq/L 01/06/2021 7:19 [facility] CO2 Total 30 22 - 32 mEq/L 01/06/2021 7:19 [facility] Anion Gap 9 8 - 16 01/06/2021 7:19 [facility] Glucose 170(H) 70 - 100 mg/dL 01/06/2021 7:19 [facility] Calcium 9.2 8.5 - 10.5 mg/dL 01/06/2021 7:19 [facility] BUN 20 10 - 26 mg/dL 01/06/2021 7:19 EDT [facility] Creatinine 0.58(L) 0.66 - 1.25 mg/dL 01/06/2021 7:19 EDT [facility] eGFR 112 >60 mL/min/1.7 3m2 01/06/2021 7:19 EDT [facility] Comment:eGFR calculated sarahi krishnan CKD-EPI equation for non- Americans. Multiply eGFR by 1.16 for patients. Blood VENOUS BLOOD / Unknown Venipuncture / Unknown 01/06/2021 6:29 EDT 01/06/2021 6:51 EDT Marciano Segovia MD CHEMISTRY & BLOOD GAS ORD ERABLES Final Result Performing Organization Address City/[facility]/ZIP Co de Phone Number [facility] [address] [place] [address] * (ABNORMAL) POCT GLUCOSE, INTERFACED (01/05/2021 20:25 EDT) Glucose, POC 138(H) 70 - 100 mg/dL 01/05/2021 20:26 EDT [facility] HN LAB POC COMMENT (GLUCOSE) Test Performed by Nursing Services 01/05/2021 20:26 EDT [facility] Blood CAPILLARY BLOOD / Unknown 01/05/2021 20:25 EDT 01/05/2021 20:26 EDT us Gela Borges MD POINT OF CARE TEST ORDERABLES Final Result [facility] [address] [place] [address] * (ABNORMAL) POCT GLUCOSE, INTERFACED (01/05/2021 18:00 EDT) Glucose, POC 200(H) 70 - 100 mg/dL 01/05/2021 18:08 EDT [facility] HN LAB POC COMMENT (GLUCOSE) Test Performed by Nursing Services 01/05/2021 18:08 EDT [facility] Blood CAPILLARY BLOOD / Unknown 01/05/2021 18:00 EDT 01/05/2021 18:08 EDT us Gela Borges MD POINT OF CARE TEST ORDERABLES Final Result Performing Organization Address [facility]/ZIP Co de Phone Number [facility] [address] [place] [address] * (ABNORMAL) POCT GLUCOSE, INTERFACED (01/05/2021 12:35 EDT) Glucose, POC 172(H) 70 - 100 mg/dL 01/05/2021 12:41 EDT [facility] HN LAB POC COMMENT (GLUCOSE) Test Performed by Nursing Services 01/05/2021 12:41 EDT [facility] Blood CAPILLARY BLOOD / Unknown 01/05/2021 12:35 EDT 01/05/2021 12:41 EDT us Gela Borges MD POINT OF CARE TEST ORDERABLES Final Result Performing Organization Address City/[facility] Co de Phone Number [facility] [address] [place] [address] * ECG REPORT - SCANNED (01/05/2021 11:16 EDT) 01/05/2021 11:1 6 EDT us Scan 2 [employer] Specialist PROCEDURE/MINOR SURGICAL OR DERABLES Final Result * (ABNORMAL) POCT GLUCOSE, INTERFACED (01/05/2021 7:55 EDT) Glucose, POC 223(H) 70 - 100 mg/dL 01/05/2021 8:00 EDT [facility] HN LAB POC COMMENT (GLUCOSE) Test Performed by Nursing Services 01/05/2021 8:00 EDT [facility] Blood CAPILLARY BLOOD / Unknown 01/05/2021 7:55 EDT 01/05/2021 8:00 EDT us Gela Borges MD POINT OF CARE TEST ORDERABLES Final Result [facility] [address] [place] [address] * (ABNORMAL) COMPLETE BLOOD COUNT (01/05/2021 5:45 EDT) WBC 7.06 4.00 - 10.40 K/cmm 01/05/2021 6:16 EDT [facility] RBC 2.99(L) 4.36 - 5.78 M/cmm 01/05/2021 6:16 [facility] Hemoglobin 9.3(L) 13.8 - 17.3 gm/dL 01/05/2021 6:16 [facility] HCT 28.4(L) 39.5 - 50.2 % 01/05/2021 6:16 [facility] MCV 95 81 - 95 fl 01/05/2021 6:16 [facility] MCH 31.1 27.6 - 33.0 pg 01/05/2021 6:16 [facility] MCHC 32.7(L) 32.8 - 36.4 gm/dL 01/05/2021 6:16 [facility] RDW-CV 13.7 <14.2 % 01/05/2021 6:16 [facility] RDW-SD 46.7(H) <46.0 fl 01/05/2021 6:16 [facility] PLT 388(H) 141 - 377 K/cmm 01/05/2021 6:16 [facility] MPV 9.2(L) 9.5 - 12.7 fl 01/05/2021 6:16 [facility] Blood BLOOD SAMPLE TAKEN FROM CENTRAL LINE / Unknown Venipuncture / Unknown 01/05/2021 5:45 EDT 01/05/2021 6:00 EDT us Marciano Segovia MD HEMATOLOGY & PF4 ORDERABL ES Final Result Performing Organization Address City/[facility]/ZIP Co de Phone Number [facility] [address] [place] [address] * (ABNORMAL) BASIC METABOLIC PANEL (BMP) (01/05/2021 5:45 EDT) Sodium 138 136 - 145 mmol/L 01/05/2021 6:34 EDT [facility] Potassium 4.7 3.5 - 5.0 mEq/L 01/05/2021 6:34 EDT [facility] Chloride 98 96 - 110 mEq/L 01/05/2021 6:34 T [facility] CO2 Total 32 22 - 32 mEq/L 01/05/2021 6:34 [facility] Anion Gap 8 8 - 16 01/05/2021 6:34 [facility] Glucose 260(H) 70 - 100 mg/dL 01/05/2021 6:34 [facility] Calcium 9.2 8.5 - 10.5 mg/dL 01/05/2021 6:34 [facility] BUN 18 10 - 26 mg/dL 01/05/2021 6:34 [facility] Creatinine 0.57(L) 0.66 - 1.25 mg/dL 01/05/2021 6:34 [facility] eGFR 112 >60 mL/min/1.7 3m2 01/05/2021 6:34 [facility] Comment:eGFR calculated sarahi krishnan CKD-EPI equation for non- Americans. Multiply eGFR by 1.16 for patients. Blood VENOUS BLOOD / Unknown Venipuncture / Unknown 01/05/2021 5:45 EDT 01/05/2021 6:01 EDT us Marciano Segovia MD CHEMISTRY & BLOOD GAS ORD ERABLES Final Result Performing Organization Address City/[facility]/ZIP Co de Phone Number [facility] [address] [place] [address] * (ABNORMAL) POCT GLUCOSE, INTERFACED (01/04/2021 21:11 EDT) Glucose, POC 223(H) 70 - 100 mg/dL 01/04/2021 21:12 EDT [facility] HN LAB POC COMMENT (GLUCOSE) Test Performed by Nursing Services 01/04/2021 21:12 EDT [facility] Blood CAPILLARY BLOOD / Unknown 01/04/2021 21:11 EDT 01/04/2021 21:12 EDT Gela Borges MD POINT OF CARE TEST ORDERABLES Final Result Performing Organization Address City/[facility]/ZIP Co de Phone Number [facility] [address] [place] [address] * (ABNORMAL) POCT GLUCOSE, INTERFACED (01/04/2021 18:25 EDT) Glucose, POC 168(H) 70 - 100 mg/dL 01/04/2021 18:26 EDT [facility] HN LAB POC COMMENT (GLUCOSE) Test Performed by Nursing Services 01/04/2021 18:26 EDT [facility] Blood CAPILLARY BLOOD / Unknown 01/04/2021 18:25 EDT 01/04/2021 18:26 EDT Gela Borges MD POINT OF CARE TEST ORDERABLES Final Result Performing Organization Address City/[facility]/ZIP Co de Phone Number [facility] [address] [place] [address] * (ABNORMAL) POCT GLUCOSE, INTERFACED (01/04/2021 11:05 EDT) Glucose, POC 210(H) 70 - 100 mg/dL 01/04/2021 11:06 EDT [facility] HN LAB POC COMMENT (GLUCOSE) Test Performed by Nursing Services 01/04/2021 11:06 EDT [facility] Blood CAPILLARY BLOOD / Unknown 01/04/2021 11:05 EDT 01/04/2021 11:06 EDT us Gela Borges MD POINT OF CARE TEST ORDERABLES Final Result Performing Organization Address City/[facility]/ZIP Co de Phone Number [facility] [address] [place] [address] * (ABNORMAL) POCT GLUCOSE, INTERFACED (01/04/2021 7:59 EDT) Glucose, POC 297(H) 70 - 100 mg/dL 01/04/2021 8:02 EDT [facility] HN LAB POC COMMENT (GLUCOSE) Test Performed by Nursing Services 01/04/2021 8:02 EDT [facility] Blood CAPILLARY BLOOD / Unknown 01/04/2021 7:59 EDT 01/04/2021 8:01 EDT Gela Borges MD POINT OF CARE TEST ORDERABLES Final Result Performing Organization Address [facility] Co de Phone Number [facility] [address] [place] [address] * (ABNORMAL) COMPLETE BLOOD COUNT (01/04/2021 6:35 EDT) WBC 12.41(H) 4.00 - 10.40 K/cmm 01/04/2021 7:04 [facility] RBC 3.10(L) 4.36 - 5.78 M/cmm 01/04/2021 7:04 [facility] Hemoglobin 9.5(L) 13.8 - 17.3 gm/dL 01/04/2021 7:04 [facility] HCT 28.3(L) 39.5 - 50.2 % 01/04/2021 7:04 [facility] MCV 91 81 - 95 fl 01/04/2021 7:04 [facility] MCH 30.6 27.6 - 33.0 pg 01/04/2021 7:04 [facility] MCHC 33.6 32.8 - 36.4 gm/dL 01/04/2021 7:04 [facility] RDW-CV 13.7 <14.2 % 01/04/2021 7:04 [facility] RDW-SD 45.0 <46.0 fl 01/04/2021 7:04 [facility] PLT 407(H) 141 - 377 K/cmm 01/04/2021 7:04 [facility] MPV 9.3(L) 9.5 - 12.7 fl 01/04/2021 7:04 [facility] Blood BLOOD SAMPLE TAKEN FROM CENTRAL LINE / Unknown Venipuncture / Unknown 01/04/2021 6:35 EDT 01/04/2021 6:49 EDT us Marciano Segovia MD HEMATOLOGY & PF4 ORDERABL ES Final Result [facility] [address] [place] [address] * (ABNORMAL) BASIC METABOLIC PANEL (BMP) (01/04/2021 6:35 EDT) Sodium 134(L) 136 - 145 mmol/L 01/04/2021 7:31 [facility] Potassium 4.8 3.5 - 5.0 mEq/L 01/04/2021 7:31 [facility] Chloride 97 96 - 110 mEq/L 01/04/2021 7:31 [facility] CO2 Total 27 22 - 32 mEq/L 01/04/2021 7:31 [facility] Anion Gap 10 8 - 16 01/04/2021 7:31 [facility] Glucose 322(H) 70 - 100 mg/dL 01/04/2021 7:31 [facility] Calcium 9.4 8.5 - 10.5 mg/dL 01/04/2021 7:31 [facility] BUN 19 10 - 26 mg/dL 01/04/2021 7:31 [facility] Creatinine 0.55(L) 0.66 - 1.25 mg/dL 01/04/2021 7:31 EDT [facility] eGFR 114 >60 mL/min/1.7 3m2 01/04/2021 7:31 EDT [facility] Comment:eGFR calculated sarahi krishnan CKD-EPI equation for non- Americans. Multiply eGFR by 1.16 for patients. Blood VENOUS BLOOD / Unknown Venipuncture / Unknown 01/04/2021 6:35 EDT 01/04/2021 6:40 EDT Marciano Segovia MD CHEMISTRY & BLOOD GAS ORD ERABLES Final Result Performing Organization Address City/[facility]/ZIP Co de Phone Number [facility] [address] [place] [address] * (ABNORMAL) POCT GLUCOSE, INTERFACED (01/03/2021 20:33 EDT) Glucose, POC 230(H) 70 - 100 mg/dL 01/03/2021 20:35 EDT [facility] HN LAB POC COMMENT (GLUCOSE) Test Performed by Nursing Services 01/03/2021 20:35 EDT [facility] Blood CAPILLARY BLOOD / Unknown 01/03/2021 20:33 EDT 01/03/2021 20:34 EDT Tj Hitchcock MD POINT OF CARE TEST ORDERABLES Fi nal Result Performing Organization Address [facility]/ZIP Co de Phone Number [facility] [address] [place] [address] * (ABNORMAL) POCT GLUCOSE, INTERFACED (01/03/2021 18:05 EDT) Glucose, POC 163(H) 70 - 100 mg/dL 01/03/2021 18:06 EDT [facility] HN LAB POC COMMENT (GLUCOSE) Test Performed by Nursing Services 01/03/2021 18:06 EDT [facility] Blood CAPILLARY BLOOD / Unknown 01/03/2021 18:05 EDT 01/03/2021 18:06 EDT us Gela Borges MD POINT OF CARE TEST ORDERABLES Final Result [facility] [address] [place] [address] * (ABNORMAL) POCT GLUCOSE, INTERFACED (01/03/2021 17:18 EDT) Glucose, POC 162(H) 70 - 100 mg/dL 01/03/2021 17:19 EDT [facility] HN LAB POC COMMENT (GLUCOSE) Test Performed by Nursing Services 01/03/2021 17:19 EDT [facility] Blood CAPILLARY BLOOD / Unknown 01/03/2021 17:18 EDT 01/03/2021 17:19 EDT us Tj Hitchcock MD POINT OF CARE TEST ORDERABLES Fi nal Result Performing Organization Address City/[facility]/ZIP Co de Phone Number [facility] [address] [place] [address] * (ABNORMAL) POCT GLUCOSE, INTERFACED (01/03/2021 16:04 EDT) Glucose, POC 209(H) 70 - 100 mg/dL 01/03/2021 16:05 EDT [facility] HN LAB POC COMMENT (GLUCOSE) Test Performed by Nursing Services 01/03/2021 16:05 EDT [facility] Blood CAPILLARY BLOOD / Unknown 01/03/2021 16:04 EDT 01/03/2021 16:05 EDT us Gela Borges MD POINT OF CARE TEST ORDERABLES Final Result [facility] [address] [place] [address] * (ABNORMAL) POCT GLUCOSE, INTERFACED (01/03/2021 12:03 EDT) Glucose, POC 230(H) 70 - 100 mg/dL 01/03/2021 12:04 EDT [facility] HN LAB POC COMMENT (GLUCOSE) Test Performed by Nursing Services 01/03/2021 12:04 EDT [facility] Blood CAPILLARY BLOOD / Unknown 01/03/2021 12:03 EDT 01/03/2021 12:04 EDT Gela Borges MD POINT OF CARE TEST ORDERABLES Final Result Performing Organization Address City/[facility]/ZIP Co de Phone Number [facility] [address] [place] [address] * (ABNORMAL) POCT GLUCOSE, INTERFACED (01/03/2021 9:03 EDT) Glucose, POC 217(H) 70 - 100 mg/dL 01/03/2021 9:04 EDT [facility] HN LAB POC COMMENT (GLUCOSE) Test Performed by Nursing Services 01/03/2021 9:04 EDT [facility] Blood CAPILLARY BLOOD / Unknown 01/03/2021 9:03 EDT 01/03/2021 9:04 EDT Gela Borges MD POINT OF CARE TEST ORDERABLES Final Result Performing Organization Address City/[facility] Co de Phone Number [facility] [address] [place] [address] * (ABNORMAL) COMPLETE BLOOD COUNT (01/03/2021 5:09 EDT) WBC 9.46 4.00 - 10.40 K/cmm 01/03/2021 5:26 T [facility] RBC 3.14(L) 4.36 - 5.78 M/cmm 01/03/2021 5:26 [facility] Hemoglobin 9.4(L) 13.8 - 17.3 gm/dL 01/03/2021 5:26 T [facility] HCT 28.6(L) 39.5 - 50.2 % 01/03/2021 5:26 [facility] MCV 91 81 - 95 fl 01/03/2021 5:26 T [facility] MCH 29.9 27.6 - 33.0 pg 01/03/2021 5:26 EDT [facility] MCHC 32.9 32.8 - 36.4 gm/dL 01/03/2021 5:26 [facility] RDW-CV 13.3 <14.2 % 01/03/2021 5:26 [facility] RDW-SD 44.2 <46.0 fl 01/03/2021 5:26 [facility] PLT 369 141 - 377 K/cmm 01/03/2021 5:26 [facility] MPV 9.0(L) 9.5 - 12.7 fl 01/03/2021 5:26 [facility] Blood VENOUS BLOOD / Unknown Venipuncture / Unknown 01/03/2021 5:09 EDT 01/03/2021 5:17 EDT us Marciano Segovia MD HEMATOLOGY & PF4 ORDERABL ES Final Result [facility] [address] [place] [address] * (ABNORMAL) BASIC METABOLIC PANEL (BMP) (01/03/2021 5:09 EDT) Sodium 133(L) 136 - 145 mmol/L 01/03/2021 5:50 [facility] Potassium 4.7 3.5 - 5.0 mEq/L 01/03/2021 5:50 [facility] Chloride 96 96 - 110 mEq/L 01/03/2021 5:50 [facility] CO2 Total 30 22 - 32 mEq/L 01/03/2021 5:50 [facility] Anion Gap 7(L) 8 - 16 01/03/2021 5:50 [facility] Glucose 262(H) 70 - 100 mg/dL 01/03/2021 5:50 [facility] Calcium 9.0 8.5 - 10.5 mg/dL 01/03/2021 5:50 EDT [facility] BUN 15 10 - 26 mg/dL 01/03/2021 5:50 EDT [facility] Creatinine 0.50(L) 0.66 - 1.25 mg/dL 01/03/2021 5:50 EDT [facility] eGFR 119 >60 mL/min/1.7 3m2 01/03/2021 5:50 EDT [facility] Comment:eGFR calculated sarahi krishnan CKD-EPI equation for non- Americans. Multiply eGFR by 1.16 for patients. Blood VENOUS BLOOD / Unknown Venipuncture / Unknown 01/03/2021 5:09 EDT 01/03/2021 5:17 EDT us Marciano Segovia MD CHEMISTRY & BLOOD GAS ORD ERABLES Final Result Performing Organization Address City/[facility]/ZIP Co de Phone Number [facility] [address] [place] [address] * (ABNORMAL) POCT GLUCOSE, INTERFACED (01/02/2021 21:03 EDT) Glucose, POC 250(H) 70 - 100 mg/dL 01/02/2021 21:03 EDT [facility] HN LAB POC COMMENT (GLUCOSE) Test Performed by Nursing Services 01/02/2021 21:03 EDT [facility] Blood CAPILLARY BLOOD / Unknown 01/02/2021 21:03 EDT 01/02/2021 21:03 EDT us Gela Borges MD POINT OF CARE TEST ORDERABLES Final Result [facility] [address] [place] [address] * (ABNORMAL) POCT GLUCOSE, INTERFACED (01/02/2021 18:28 EDT) Glucose, POC 309(H) 70 - 100 mg/dL 01/02/2021 18:42 EDT [facility] HN LAB POC COMMENT (GLUCOSE) Test Performed by Nursing Services 01/02/2021 18:42 EDT [facility] Blood CAPILLARY BLOOD / Unknown 01/02/2021 18:28 EDT 01/02/2021 18:42 EDT Gela Borges MD POINT OF CARE TEST ORDERABLES Final Result [facility] [address] [place] [address] * (ABNORMAL) POCT GLUCOSE, INTERFACED (01/02/2021 12:41 EDT) Glucose, POC 206(H) 70 - 100 mg/dL 01/02/2021 12:46 EDT [facility] HN LAB POC COMMENT (GLUCOSE) Test Performed by Nursing Services 01/02/2021 12:46 EDT [facility] Blood CAPILLARY BLOOD / Unknown 01/02/2021 12:41 EDT 01/02/2021 12:46 EDT us Gela Borges MD POINT OF CARE TEST ORDERABLES Final Result Performing Organization Address City/[facility]/ZIP Co de Phone Number [facility] [address] [place] [address] * (ABNORMAL) POCT GLUCOSE, INTERFACED (01/02/2021 8:13 EDT) Glucose, POC 187(H) 70 - 100 mg/dL 01/02/2021 8:23 EDT [facility] HN LAB POC COMMENT (GLUCOSE) Test Performed by Nursing Services 01/02/2021 8:23 EDT [facility] Blood CAPILLARY BLOOD / Unknown 01/02/2021 8:13 EDT 01/02/2021 8:23 EDT Gela Borges MD POINT OF CARE TEST ORDERABLES Final Result [facility] [address] [place] [address] * (ABNORMAL) COMPLETE BLOOD COUNT (01/02/2021 5:29 EDT) [facility] WBC 9.36 4.00 - 10.40 K/cmm 01/02/2021 5:49 [facility] RBC 3.09(L) 4.36 - 5.78 M/cmm 01/02/2021 5:49 [facility] Hemoglobin 9.2(L) 13.8 - 17.3 gm/dL 01/02/2021 5:49 [facility] HCT 28.1(L) 39.5 - 50.2 % 01/02/2021 5:49 [facility] MCV 91 81 - 95 fl 01/02/2021 5:49 [facility] MCH 29.8 27.6 - 33.0 pg 01/02/2021 5:49 [facility] MCHC 32.7(L) 32.8 - 36.4 gm/dL 01/02/2021 5:49 [facility] RDW-CV 13.2 <14.2 % 01/02/2021 5:49 [facility] RDW-SD 43.8 <46.0 fl 01/02/2021 5:49 [facility] PLT 354 141 - 377 K/cmm 01/02/2021 5:49 [facility] MPV 9.1(L) 9.5 - 12.7 fl 01/02/2021 5:49 [facility] Blood BLOOD SAMPLE TAKEN FROM CENTRAL LINE / Unknown Venipuncture / Unknown 01/02/2021 5:29 EDT 01/02/2021 5:40 EDT us Marciano Segovia MD HEMATOLOGY & PF4 ORDERABL ES Final Result [facility] [address] [place] [address] * (ABNORMAL) BASIC METABOLIC PANEL (BMP) (01/02/2021 5:29 EDT) Sodium 134(L) 136 - 145 mmol/L 01/02/2021 6:12 EDT [facility] Potassium 4.5 3.5 - 5.0 mEq/L 01/02/2021 6:12 EDT [facility] Chloride 98 96 - 110 mEq/L 01/02/2021 6:12 [facility] CO2 Total 28 22 - 32 mEq/L 01/02/2021 6:12 [facility] Anion Gap 8 8 - 16 01/02/2021 6:12 [facility] Glucose 231(H) 70 - 100 mg/dL 01/02/2021 6:12 [facility] Calcium 8.7 8.5 - 10.5 mg/dL 01/02/2021 6:12 [facility] BUN 13 10 - 26 mg/dL 01/02/2021 6:12 [facility] Creatinine 0.52(L) 0.66 - 1.25 mg/dL 01/02/2021 6:12 [facility] eGFR 117 >60 mL/min/1.7 3m2 01/02/2021 6:12 [facility] Comment:eGFR calculated sarahi krishnan CKD-EPI equation for non- Americans. Multiply eGFR by 1.16 for patients. Blood VENOUS BLOOD / Unknown Venipuncture / Unknown 01/02/2021 5:29 EDT 01/02/2021 5:40 EDT us Marciano Segovia MD CHEMISTRY & BLOOD GAS ORD ERABLES Final Result [facility] [address] [place] [address] * (ABNORMAL) POCT GLUCOSE, INTERFACED (01/01/2021 21:57 EDT) Glucose, POC 316(H) 70 - 100 mg/dL 01/01/2021 21:58 EDT [facility] HN LAB POC COMMENT (GLUCOSE) Test Performed by Nursing Services 01/01/2021 21:58 EDT [facility] Blood CAPILLARY BLOOD / Unknown 01/01/2021 21:57 EDT 01/01/2021 21:57 EDT Gela Borges MD POINT OF CARE TEST ORDERABLES Final Result [facility] [address] [place] [address] * (ABNORMAL) POCT GLUCOSE, INTERFACED (01/01/2021 17:41 EDT) Glucose, POC 273(H) 70 - 100 mg/dL 01/01/2021 17:42 EDT [facility] HN LAB POC COMMENT (GLUCOSE) Test Performed by Nursing Services 01/01/2021 17:42 EDT [facility] Blood CAPILLARY BLOOD / Unknown 01/01/2021 17:41 EDT 01/01/2021 17:42 EDT us Gela Borges MD POINT OF CARE TEST ORDERABLES Final Result Performing Organization Address City/[facility]/ZIP Co de Phone Number [facility] [address] [place] [address] * (ABNORMAL) POCT GLUCOSE, INTERFACED (01/01/2021 12:28 EDT) Glucose, POC 217(H) 70 - 100 mg/dL 01/01/2021 12:33 EDT [facility] HN LAB POC COMMENT (GLUCOSE) Test Performed by Nursing Services 01/01/2021 12:33 EDT [facility] Blood CAPILLARY BLOOD / Unknown 01/01/2021 12:28 EDT 01/01/2021 12:33 EDT Gela Borges MD POINT OF CARE TEST ORDERABLES Final Result [facility] [address] [place] [address] * POCT GLUCOSE, INTERFACED (01/01/2021 7:50 EDT) Glucose, POC 99 70 - 100 mg/dL 01/01/2021 7:55 EDT [facility] HN LAB POC COMMENT (GLUCOSE) Test Performed by Nursing Services 01/01/2021 7:55 T [facility] Blood CAPILLARY BLOOD / Unknown 01/01/2021 7:50 EDT 01/01/2021 7:55 EDT us Gela Borges MD POINT OF CARE TEST ORDERABLES Final Result [facility] [address] [place] [address] * (ABNORMAL) COMPLETE BLOOD COUNT (01/01/2021 6:12 EDT) [facility] WBC 9.61 4.00 - 10.40 K/cmm 01/01/2021 6:27 [facility] RBC 3.17(L) 4.36 - 5.78 M/cmm 01/01/2021 6:27 [facility] Hemoglobin 9.6(L) 13.8 - 17.3 gm/dL 01/01/2021 6:27 [facility] HCT 28.9(L) 39.5 - 50.2 % 01/01/2021 6:27 [facility] MCV 91 81 - 95 fl 01/01/2021 6:27 [facility] MCH 30.3 27.6 - 33.0 pg 01/01/2021 6:27 [facility] MCHC 33.2 32.8 - 36.4 gm/dL 01/01/2021 6:27 [facility] RDW-CV 13.2 <14.2 % 01/01/2021 6:27 [facility] RDW-SD 43.6 <46.0 fl 01/01/2021 6:27 [facility] PLT 375 141 - 377 K/cmm 01/01/2021 6:27 EDT [facility] MPV 9.0(L) 9.5 - 12.7 fl 01/01/2021 6:27 T [facility] Blood BLOOD SAMPLE TAKEN FROM CENTRAL LINE / Unknown Venipuncture / Unknown 01/01/2021 6:12 EDT 01/01/2021 6:18 EDT Marciano Segovia MD HEMATOLOGY & PF4 ORDERABL ES Final Result [facility] [address] [place] [address] * (ABNORMAL) BASIC METABOLIC PANEL (BMP) (01/01/2021 6:12 EDT) Sodium 135(L) 136 - 145 mmol/L 01/01/2021 7:00 [facility] Potassium 4.3 3.5 - 5.0 mEq/L 01/01/2021 7:00 [facility] Chloride 98 96 - 110 mEq/L 01/01/2021 7:00 [facility] CO2 Total 29 22 - 32 mEq/L 01/01/2021 7:00 [facility] Anion Gap 8 8 - 16 01/01/2021 7:00 [facility] Glucose 126(H) 70 - 100 mg/dL 01/01/2021 7:00 [facility] Calcium 8.6 8.5 - 10.5 mg/dL 01/01/2021 7:00 [facility] BUN 11 10 - 26 mg/dL 01/01/2021 7:00 [facility] Creatinine 0.51(L) 0.66 - 1.25 mg/dL 01/01/2021 7:00 [facility] eGFR 118 >60 mL/min/1.7 3m2 01/01/2021 7:00 [facility] Comment:eGFR calculated sarahi krishnan CKD-EPI equation for non- Americans. Multiply eGFR by 1.16 for patients. Blood VENOUS BLOOD / Unknown Venipuncture / Unknown 01/01/2021 6:12 EDT 01/01/2021 6:31 EDT Marciano Segovia MD CHEMISTRY & BLOOD GAS ORD ERABLES Final Result Performing Organization Address City/[facility]/ZIP Co de Phone Number [facility] [address] [place] [address] * (ABNORMAL) POCT GLUCOSE, INTERFACED (12/31/2020 21:26 EDT) Glucose, POC 230(H) 70 - 100 mg/dL 12/31/2020 21:27 EDT [facility] HN LAB POC COMMENT (GLUCOSE) Test Performed by Nursing Services 12/31/2020 21:27 EDT [facility] Blood CAPILLARY BLOOD / Unknown 12/31/2020 21:26 EDT 12/31/2020 21:27 EDT Gela Borges MD POINT OF CARE TEST ORDERABLES Final Result Performing Organization Address [facility] de Phone Number [facility] [address] [place] [address] * (ABNORMAL) POCT GLUCOSE, INTERFACED (12/31/2020 18:22 EDT) Glucose, POC 282(H) 70 - 100 mg/dL 12/31/2020 18:27 EDT [facility] HN LAB POC COMMENT (GLUCOSE) Test Performed by Nursing Services 12/31/2020 18:27 EDT [facility] Blood CAPILLARY BLOOD / Unknown 12/31/2020 18:22 EDT 12/31/2020 18:27 EDT Gela Borges MD POINT OF CARE TEST ORDERABLES Final Result Performing Organization Address City/[facility]/ZIP Co de Phone Number [facility] [address] [place] [address] * INSERT PICC LINE (12/31/2020 14:41 EDT) Narrative Chago Leon RN - 12/31/2020 14:41 EDT Chago Leon RN ? 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 CHAGO LEON RN ?? 12/31/2020 ?? 14:41 us Desiree Marcano DO IV THERAPY ORDERABLES Final Re sult * (ABNORMAL) POCT GLUCOSE, INTERFACED (12/31/2020 12:30 EDT) Glucose, POC 214(H) 70 - 100 mg/dL 12/31/2020 12:31 EDT [facility] HN LAB POC COMMENT (GLUCOSE) Test Performed by Nursing Services 12/31/2020 12:31 EDT [facility] Blood CAPILLARY BLOOD / Unknown 12/31/2020 12:30 EDT 12/31/2020 12:31 EDT Gela Borges MD POINT OF CARE TEST ORDERABLES Final Result Performing Organization Address City/[facility] Co de Phone Number [facility] [address] [place] [address] * (ABNORMAL) POCT GLUCOSE, INTERFACED (12/31/2020 8:56 EDT) Glucose, POC 165(H) 70 - 100 mg/dL 12/31/2020 8:57 EDT [facility] HN LAB POC COMMENT (GLUCOSE) Test Performed by Nursing Services 12/31/2020 8:57 EDT [facility] Blood CAPILLARY BLOOD / Unknown 12/31/2020 8:56 EDT 12/31/2020 8:57 EDT Gela Borges MD POINT OF CARE TEST ORDERABLES Final Result Performing Organization Address City/[facility]/ZIP Co de Phone Number [facility] [address] [place] [address] * (ABNORMAL) COMPLETE BLOOD COUNT (12/31/2020 6:46 EDT) WBC 8.45 4.00 - 10.40 K/cmm 12/31/2020 7:27 [facility] RBC 3.21(L) 4.36 - 5.78 M/cmm 12/31/2020 7:27 [facility] Hemoglobin 9.8(L) 13.8 - 17.3 gm/dL 12/31/2020 7:27 [facility] HCT 29.0(L) 39.5 - 50.2 % 12/31/2020 7:27 [facility] MCV 90 81 - 95 fl 12/31/2020 7:27 [facility] MCH 30.5 27.6 - 33.0 pg 12/31/2020 7:27 [facility] MCHC 33.8 32.8 - 36.4 gm/dL 12/31/2020 7:27 [facility] RDW-CV 13.2 <14.2 % 12/31/2020 7:27 [facility] RDW-SD 43.5 <46.0 fl 12/31/2020 7:27 [facility] PLT 315 141 - 377 K/cmm 12/31/2020 7:27 [facility] MPV 9.5 9.5 - 12.7 fl 12/31/2020 7:27 [facility] Blood VENOUS BLOOD / Unknown Venipuncture / Unknown 12/31/2020 6:46 EDT 12/31/2020 7:14 EDT us Marciano Segovia MD HEMATOLOGY & PF4 ORDERABL ES Final Result [facility] [address] [place] [address] * (ABNORMAL) BASIC METABOLIC PANEL (BMP) (12/31/2020 6:46 EDT) Sodium 136 136 - 145 mmol/L 12/31/2020 7:49 [facility] Potassium 4.3 3.5 - 5.0 mEq/L 12/31/2020 7:49 EDT [facility] Chloride 99 96 - 110 mEq/L 12/31/2020 7:49 [facility] CO2 Total 29 22 - 32 mEq/L 12/31/2020 7:49 [facility] Anion Gap 8 8 - 16 12/31/2020 7:49 [facility] Glucose 204(H) 70 - 100 mg/dL 12/31/2020 7:49 [facility] Calcium 8.3(L) 8.5 - 10.5 mg/dL 12/31/2020 7:49 [facility] BUN 11 10 - 26 mg/dL 12/31/2020 7:49 [facility] Creatinine 0.50(L) 0.66 - 1.25 mg/dL 12/31/2020 7:49 [facility] eGFR 119 >60 mL/min/1.7 3m2 12/31/2020 7:49 [facility] Comment:eGFR calculated sarahi krishnan CKD-EPI equation for non- Americans. Multiply eGFR by 1.16 for patients. Blood VENOUS BLOOD / Unknown Venipuncture / Unknown 12/31/2020 6:46 EDT 12/31/2020 7:21 EDT us Marciano Segovia MD CHEMISTRY & BLOOD GAS ORD ERABLES Final Result [facility] [address] [place] [address] * (ABNORMAL) POCT GLUCOSE, INTERFACED (12/31/2020 0:11 EDT) Glucose, POC 239(H) 70 - 100 mg/dL 12/31/2020 0:13 EDT [facility] HN LAB POC COMMENT (GLUCOSE) Test Performed by Nursing Services 12/31/2020 0:13 EDT [facility] Blood CAPILLARY BLOOD / Unknown 12/31/2020 0:11 EDT 12/31/2020 0:12 EDT us Stanley Tillman MD POINT OF CARE TEST O RDERABLES Final Result Performing Organization Address City/[facility]/ZIP Co de Phone Number [facility] [address] [place] [address] * (ABNORMAL) POCT GLUCOSE, INTERFACED (12/30/2020 20:51 EDT) Glucose, POC 321(H) 70 - 100 mg/dL 12/30/2020 21:09 EDT [facility] HN LAB POC COMMENT (GLUCOSE) Test Performed by Nursing Services 12/30/2020 21:09 EDT [facility] Blood CAPILLARY BLOOD / Unknown 12/30/2020 20:51 EDT 12/30/2020 21:09 EDT us Gela Borges MD POINT OF CARE TEST ORDERABLES Final Result Performing Organization Address [facility] Co de Phone Number [facility] [address] [place] [address] * (ABNORMAL) POCT GLUCOSE, INTERFACED (12/30/2020 18:24 EDT) Glucose, POC 288(H) 70 - 100 mg/dL 12/30/2020 18:28 EDT [facility] HN LAB POC COMMENT (GLUCOSE) Test Performed by Nursing Services 12/30/2020 18:28 EDT [facility] Blood CAPILLARY BLOOD / Unknown 12/30/2020 18:24 EDT 12/30/2020 18:28 EDT us Gela Borges MD POINT OF CARE TEST ORDERABLES Final Result Performing Organization Address City/[facility]/ZIP Co de Phone Number [facility] [address] [place] [address] * (ABNORMAL) POCT GLUCOSE, INTERFACED (12/30/2020 12:28 EDT) Glucose, POC 240(H) 70 - 100 mg/dL 12/30/2020 12:31 EDT [facility] HN LAB POC COMMENT (GLUCOSE) Test Performed by Nursing Services 12/30/2020 12:31 EDT [facility] Blood CAPILLARY BLOOD / Unknown 12/30/2020 12:28 EDT 12/30/2020 12:31 EDT Gela Borges MD POINT OF CARE TEST ORDERABLES Final Result Performing Organization Address [facility] Co de Phone Number [facility] [address] [place] [address] * (ABNORMAL) POCT GLUCOSE, INTERFACED (12/30/2020 8:05 EDT) Glucose, POC 224(H) 70 - 100 mg/dL 12/30/2020 8:13 EDT [facility] HN LAB POC COMMENT (GLUCOSE) Test Performed by Nursing Services 12/30/2020 8:13 EDT [facility] Blood CAPILLARY BLOOD / Unknown 12/30/2020 8:05 EDT 12/30/2020 8:13 EDT us Gela Borges MD POINT OF CARE TEST ORDERABLES Final Result Performing Organization Address [facility] de Phone Number [facility] [address] [place] [address] * (ABNORMAL) COMPLETE BLOOD COUNT (12/30/2020 6:19 EDT) WBC 11.80(H) 4.00 - 10.40 K/cmm 12/30/2020 7:31 EDT [facility] RBC 2.99(L) 4.36 - 5.78 M/cmm 12/30/2020 7:31 [facility] Hemoglobin 9.4(L) 13.8 - 17.3 gm/dL 12/30/2020 7:31 EDT [facility] HCT 27.4(L) 39.5 - 50.2 % 12/30/2020 7:31 T [facility] MCV 92 81 - 95 fl 12/30/2020 [facility] MCH 31.4 27.6 - 33.0 pg 12/30/2020 7:31 [facility] MCHC 34.3 32.8 - 36.4 gm/dL 12/30/2020 7:31 [facility] RDW-CV 13.4 <14.2 % 12/30/2020 7:31 [facility] RDW-SD 45.1 <46.0 fl 12/30/2020 7:31 [facility] PLT 333 141 - 377 K/cmm 12/30/2020 7:31 [facility] MPV 9.6 9.5 - 12.7 fl 12/30/2020 7:31 [facility] Blood VENOUS BLOOD / Unknown Venipuncture / Unknown 12/30/2020 6:19 EDT 12/30/2020 7:22 EDT us Marciano Segovia MD HEMATOLOGY & PF4 ORDERABL ES Final Result [facility] [address] [place] [address] * (ABNORMAL) BASIC METABOLIC PANEL (BMP) (12/30/2020 6:19 EDT) Sodium 134(L) 136 - 145 mmol/L 12/30/2020 8:02 [facility] Potassium 4.7 3.5 - 5.0 mEq/L 12/30/2020 8:02 [facility] Chloride 99 96 - 110 mEq/L 12/30/2020 8:02 [facility] CO2 Total 28 22 - 32 mEq/L 12/30/2020 8:02 [facility] Anion Gap 7(L) 8 - 16 12/30/2020 8:02 [facility] Glucose 260(H) 70 - 100 mg/dL 12/30/2020 8:02 [facility] Calcium 8.1(L) 8.5 - 10.5 mg/dL 12/30/2020 8:02 EDT [facility] BUN 13 10 - 26 mg/dL 12/30/2020 8:02 EDT [facility] Creatinine 0.74 0.66 - 1.25 mg/dL 12/30/2020 8:02 EDT [facility] eGFR 101 >60 mL/min/1.7 3m2 12/30/2020 8:02 EDT [facility] Comment:eGFR calculated sarahi krishnan CKD-EPI equation for non- Americans. Multiply eGFR by 1.16 for patients. Blood VENOUS BLOOD / Unknown Venipuncture / Unknown 12/30/2020 6:19 EDT 12/30/2020 7:34 EDT us Marciano Segovia MD CHEMISTRY & BLOOD GAS ORD ERABLES Final Result Performing Organization Address City/[facility]/ZIP Co de Phone Number [facility] [address] [place] [address] * POCT GLUCOSE, INTERFACED (12/29/2020 21:01 EDT) Glucose, POC 96 70 - 100 mg/dL 12/29/2020 21:02 EDT [facility] HN LAB POC COMMENT (GLUCOSE) Test Performed by Nursing Services 12/29/2020 21:02 EDT [facility] Blood CAPILLARY BLOOD / Unknown 12/29/2020 21:01 EDT 12/29/2020 21:02 EDT us Bar Harper DO POINT OF CARE TEST ORDERABLES Final Result Performing Organization Address City/[facility]/ZIP Co de Phone Number [facility] [address] [place] [address] * SURGICAL PATHOLOGY (12/29/2020 19:29 EDT) Note to Patient The following pathology results have been interpreted by your pathologist and may be available to you before your health provider has had the opportunity to review them. Please allow time for your provider to receive these results and explore management options, if applicable. 01/10/2021 14:26 [facility] Final Diagnosis A. 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 Ulcerated skin and soft tissue near prior scar. Gross only. 01/10/2021 14:26 [facility] Attestation By the signature below, the attending physician certifies that they have 1) personally conducted a gross and/or microscopic examination of the described specimen(s), and/or personally interpreted the results of laboratory testing of the described specimen(s), and 2) personally rendered or confirmed the above diagnosis. 01/10/2021 14:26 [facility] at 1426 Clinical History 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 (HCC-CMS) ([facility]) 01/10/2021 14:26 [facility] Gross Description A. Received fresh labelled with proper patient identification (initials D, S) and right leg is a right [id number]-[id number]-[id number] amputation comprised of leg (22.0 cm proximal [...] gross examination only. No sections submitted. ANTONIO SPARROW(ASCP) 12/30/2020 13:53 01/10/2021 14:26 [facility] Performing Lab [facility] 01/10/2021 14:26 [facility] Scanned Images 01/10/2021 14:26 [facility] Tissue TRAUMATIC AMPUTATION OF UPPER LIMB / Unknown 12/29/2020 19:29 EDT 12/29/2020 21:44 EDT us Edson Arzate MD PATHOLOGY ORDERABLES Sobia l Result [facility] [address] [place] [address] * POCT GLUCOSE, INTERFACED (12/29/2020 18:28 EDT) Glucose, POC 83 70 - 100 mg/dL 12/29/2020 18:29 EDT [facility] HN LAB POC COMMENT (GLUCOSE) Test Performed by Nursing Services 12/29/2020 18:29 EDT [facility] Blood CAPILLARY BLOOD / Unknown 12/29/2020 18:28 EDT 12/29/2020 18:29 EDT us Gela Borges MD POINT OF CARE TEST ORDERABLES Final Result [facility] [address] [place] [address] * POCT GLUCOSE, INTERFACED (12/29/2020 17:02 EDT) Glucose, POC 93 70 - 100 mg/dL 12/30/2020 5:48 EDT [facility] HN LAB POC COMMENT (GLUCOSE) Test Performed by Nursing Services 12/30/2020 5:48 EDT [facility] Blood CAPILLARY BLOOD / Unknown 12/29/2020 17:02 EDT 12/30/2020 5:48 EDT us Stanley Tillman MD POINT OF CARE TEST O RDERABLES Final Result Performing Organization Address City/[facility]/ZIP Co de Phone Number [facility] [address] [place] [address] * POCT GLUCOSE, INTERFACED (12/29/2020 14:38 EDT) Glucose, POC 90 70 - 100 mg/dL 12/29/2020 14:52 EDT [facility] HN LAB POC COMMENT (GLUCOSE) Test Performed by Nursing Services 12/29/2020 14:52 EDT [facility] Blood CAPILLARY BLOOD / Unknown 12/29/2020 14:38 EDT 12/29/2020 14:52 EDT us Gilda Black MD POINT OF CARE TEST ORDERABLES Fi nal Result Performing Organization Address [facility]/ZIP Co de Phone Number [facility] [address] [place] [address] * MR HIP W WO CONTRAST LEFT [...] right trochanteric bursitis demonstrated on the wide [id number] coronal images. I have personally reviewed the [...] mild right trochantericbursitis demonstrated on the wide [id number] coronal images. I have personally reviewed the images and the above interpretation andagree with the findings. us Js Seekangélica ROGERS Kelsie MRI ORDERABLES Edited Result - Final * (ABNORMAL) POCT GLUCOSE, INTERFACED (12/29/2020 9:15 EDT) Glucose, POC 115(H) 70 - 100 mg/dL 12/29/2020 9:20 EDT [facility] HN LAB POC COMMENT (GLUCOSE) Test Performed by Nursing Services 12/29/2020 9:20 EDT [facility] Blood CAPILLARY BLOOD / Unknown 12/29/2020 9:15 EDT 12/29/2020 9:20 EDT us Gilda Black MD POINT OF CARE TEST ORDERABLES Fi nal Result [facility] [address] [place] [address] * POC US ANESTHESIA NERVE BLOCK POPLITEAL FOSSA (12/29/2020 8:04 EDT) Narrative 12/29/2020 8:04 EDT This is a non-reportable exam. us Sharmin Arora DO IMG US POC ORDERABLES Final Result * POC US ANESTHESIA NERVE BLOCK OTHER (12/29/2020 8:03 EDT) Narrative 12/29/2020 8:03 EDT This is a non-reportable exam. Adam Santiago MD [facility] US POC ORDERABLES Fin al Result * (ABNORMAL) COMPLETE BLOOD COUNT (12/29/2020 7:28 EDT) Pathologist [facility] [place] WBC 8.65 4.00 - 10.40 K/cmm 12/29/2020 8:01 [facility] RBC 3.64(L) 4.36 - 5.78 M/cmm 12/29/2020 8:01 [facility] Hemoglobin 10.8(L) 13.8 - 17.3 gm/dL 12/29/2020 8:01 [facility] HCT 32.3(L) 39.5 - 50.2 % 12/29/2020 8:01 [facility] MCV 89 81 - 95 fl 12/29/2020 8:01 [facility] MCH 29.7 27.6 - 33.0 pg 12/29/2020 8:01 [facility] MCHC 33.4 32.8 - 36.4 gm/dL 12/29/2020 8:01 [facility] RDW-CV 13.4 <14.2 % 12/29/2020 8:01 [facility] RDW-SD 43.7 <46.0 fl 12/29/2020 8:01 [facility] PLT 319 141 - 377 K/cmm 12/29/2020 8:01 [facility] MPV 9.3(L) 9.5 - 12.7 fl 12/29/2020 8:01 [facility] Blood VENOUS BLOOD / Unknown Venipuncture / Unknown 12/29/2020 7:28 EDT 12/29/2020 7:53 EDT us Marciano Segovia MD HEMATOLOGY & PF4 ORDERABL ES Final Result Performing Organization Address City/State/[facility] Co de Phone Number [facility] [address] [place] [id number] * (ABNORMAL) BASIC METABOLIC PANEL (BMP) (12/29/2020 7:28 EDT) Sodium 136 136 - 145 mmol/L 12/29/2020 8:30 [facility] Potassium 4.0 3.5 - 5.0 mEq/L 12/29/2020 8:30 [facility] Chloride 100 96 - 110 mEq/L 12/29/2020 8:30 [facility] CO2 Total 29 22 - 32 mEq/L 12/29/2020 8:30 [facility] Anion Gap 7(L) 8 - 16 12/29/2020 8:30 [facility] Glucose 130(H) 70 - 100 mg/dL 12/29/2020 8:30 [facility] Calcium 8.3(L) 8.5 - 10.5 mg/dL 12/29/2020 8:30 [facility] BUN 7(L) 10 - 26 mg/dL 12/29/2020 8:30 EDT [facility] Creatinine 0.53(L) 0.66 - 1.25 mg/dL 12/29/2020 8:30 EDT [facility] eGFR 116 >60 mL/min/1.7 3m2 12/29/2020 8:30 EDT [facility] Comment:eGFR calculated sarahi krishnan CKD-EPI equation for non- Americans. Multiply eGFR by 1.16 for patients. Blood VENOUS BLOOD / Unknown Venipuncture / Unknown 12/29/2020 7:28 EDT 12/29/2020 7:44 EDT us Marciano Segovia MD CHEMISTRY & BLOOD GAS ORD ERABLES Final Result [facility] [address] [place] [address] * (ABNORMAL) POCT GLUCOSE, INTERFACED (12/29/2020 6:03 EDT) Glucose, POC 128(H) 70 - 100 mg/dL 12/29/2020 6:07 EDT [facility] HN LAB POC COMMENT (GLUCOSE) Test Performed by Nursing Services 12/29/2020 6:07 EDT [facility] Blood CAPILLARY BLOOD / Unknown 12/29/2020 6:03 EDT 12/29/2020 6:07 EDT us Gela Borges MD POINT OF CARE TEST ORDERABLES Final Result [facility] [address] [place] [address] * (ABNORMAL) POCT GLUCOSE, INTERFACED (12/29/2020 0:01 EDT) Glucose, POC 215(H) 70 - 100 mg/dL 12/29/2020 0:28 EDT [facility] HN LAB POC COMMENT (GLUCOSE) Test Performed by Nursing Services 12/29/2020 0:28 EDT [facility] Blood CAPILLARY BLOOD / Unknown 12/29/2020 0:01 EDT 12/29/2020 0:28 EDT Gela Borges MD POINT OF CARE TEST ORDERABLES Final Result [facility] [address] [place] [address] * (ABNORMAL) POCT GLUCOSE, INTERFACED (12/28/2020 21:21 EDT) Glucose, POC 174(H) 70 - 100 mg/dL 12/28/2020 21:22 EDT [facility] HN LAB POC COMMENT (GLUCOSE) Test Performed by Nursing Services 12/28/2020 21:22 EDT [facility] Blood CAPILLARY BLOOD / Unknown 12/28/2020 21:21 EDT 12/28/2020 21:22 EDT Gilda Black MD POINT OF CARE TEST ORDERABLES Fi nal Result Performing Organization Address City/[facility]/ZIP Co de Phone Number [facility] [address] [place] [address] * (ABNORMAL) POCT GLUCOSE, INTERFACED (12/28/2020 18:11 EDT) Glucose, POC 230(H) 70 - 100 mg/dL 12/28/2020 18:16 EDT [facility] HN LAB POC COMMENT (GLUCOSE) Test Performed by Nursing Services 12/28/2020 18:16 EDT [facility] Blood CAPILLARY BLOOD / Unknown 12/28/2020 18:11 EDT 12/28/2020 18:16 EDT Gilda Black MD POINT OF CARE TEST ORDERABLES Fi nal Result [facility] [address] [place] [address] * COVID-19 TEST [facility] PCR (12/28/2020 14:50 EDT) Swab ENTIRE NASOPHARYNX / Unknown Swab / Unknown 12/28/2020 14:50 EDT 12/28/2020 15:01 EDT Js Meza MD MICROBIOLOGY - GENERAL ORDERABLE S Final Result Performing Organization Address [facility] Co de Phone Number [facility] [address] [place] [address] * COVID-19 TESTING (12/28/2020 14:50 EDT) Pathologist [facility] [place] COVID-19 rt-PCR Result Negative Negative 12/28/2020 18:35 EDT [facility] Comment: This test [...] history, and epidemiological information. Performed on the [employer] Fusion instrument Performing Lab [place] [facility] 12/28/2020 18:35 EDT [facility] Swab ENTIRE NASOPHARYNX / Unknown Swab / Unknown 12/28/2020 14:50 EDT 12/28/2020 15:01 EDT us Js Meza MD MICROBIOLOGY - GENERAL ORDERABLE S Final Result Performing Organization Address [facility]/ZIP Co de Phone Number [facility] [address] [place] [address] * (ABNORMAL) PROTIME (12/28/2020 14:02 EDT) Pathologist [facility] [place] I.N.R. 1.3(H) 0.9 - 1.1 Ratio 12/28/2020 14:29 EDT [facility] Pro Time 14.9(H) 10.4 - 12.6 secs 12/28/2020 14:29 EDT [facility] Blood VENOUS BLOOD / Unknown Venipuncture / Unknown 12/28/2020 14:02 EDT 12/28/2020 14:08 EDT Narrative [facility] - 12/28/2020 14:29 EDT Moderate Intensity Coumadin INR = 2.0-3.0 Adjustments in anticoagulant therapy dose should be based on the INR and NOT on the Protime. us Js Meza MD HEMATOLOGY & PF4 ORDERABLES Sobia l Result Performing Organization Address City/[facility] Co de Phone Number [facility] [address] [place] [address] * PTT (12/28/2020 14:02 EDT) PTT 37 26 - 37 secs 12/28/2020 14:29 EDT [facility] Blood VENOUS BLOOD / Unknown Venipuncture / Unknown 12/28/2020 14:02 EDT 12/28/2020 14:08 EDT us Js Meza MD HEMATOLOGY & PF4 ORDERABLES Sobia l Result Performing Organization Address City/[facility] Co de Phone Number [facility] [address] [place] [address] * TYPE AND SCREEN (12/28/2020 14:02 EDT) ABO A 12/28/2020 15:10 EDT [facility] Rh Factor Positive 12/28/2020 15:10 EDT [facility] Antibody Screen Negative 12/28/2020 15:10 EDT [facility] Specimen Expires: 12/31/2020 @ 23:59 12/28/2020 15:10 EDT [facility] Blood VENOUS BLOOD / Unknown Venipuncture / Unknown 12/28/2020 14:02 EDT 12/28/2020 14:13 EDT Js Meza MD BLOOD BANK TESTS Edited Result - Final Performing Organization Address [facility]/ZIP Co de Phone Number [facility] [address] [facility] [place] [address] * (ABNORMAL) POCT GLUCOSE, INTERFACED (12/28/2020 11:33 EDT) Glucose, POC 219(H) 70 - 100 mg/dL 12/28/2020 11:34 EDT [facility] HN LAB POC COMMENT (GLUCOSE) Test Performed by Nursing Services 12/28/2020 11:34 EDT [facility] Blood CAPILLARY BLOOD / Unknown 12/28/2020 11:33 EDT 12/28/2020 11:34 EDT Gilda Black MD POINT OF CARE TEST ORDERABLES Fi nal Result Performing Organization Address [facility] Co de Phone Number [facility] [address] [place] [address] * (ABNORMAL) POCT GLUCOSE, INTERFACED (12/28/2020 7:55 EDT) [employer] Signature Glucose, POC 135(H) 70 - 100 mg/dL 12/28/2020 8:53 EDT [facility] HN LAB POC COMMENT (GLUCOSE) Test Performed by Nursing Services 12/28/2020 8:53 EDT [facility] Blood CAPILLARY BLOOD / Unknown 12/28/2020 7:55 EDT 12/28/2020 8:53 EDT Gilda Black MD POINT OF CARE TEST ORDERABLES Fi nal Result Performing Organization Address City/[facility]/ZIP Co de Phone Number [facility] [address] [place] [address] * (ABNORMAL) COMPLETE BLOOD COUNT (12/28/2020 7:29 EDT) [facility] WBC 8.16 4.00 - 10.40 K/cmm 12/28/2020 7:52 [facility] RBC 3.58(L) 4.36 - 5.78 M/cmm 12/28/2020 7:52 [facility] Hemoglobin 10.6(L) 13.8 - 17.3 gm/dL 12/28/2020 7:52 [facility] HCT 31.4(L) 39.5 - 50.2 % 12/28/2020 7:52 [facility] MCV 88 81 - 95 fl 12/28/2020 7:52 [facility] MCH 29.6 27.6 - 33.0 pg 12/28/2020 7:52 [facility] MCHC 33.8 32.8 - 36.4 gm/dL 12/28/2020 7:52 [facility] RDW-CV 13.5 <14.2 % 12/28/2020 7:52 [facility] RDW-SD 43.5 <46.0 fl 12/28/2020 7:52 [facility] PLT 294 141 - 377 K/cmm 12/28/2020 7:52 [facility] MPV 9.6 9.5 - 12.7 fl 12/28/2020 7:52 [facility] Blood VENOUS BLOOD / Unknown Venipuncture / Unknown 12/28/2020 7:29 EDT 12/28/2020 7:40 EDT us Marciano Segovia MD HEMATOLOGY & PF4 ORDERABL ES Final Result [facility] [address] [place] [address] * (ABNORMAL) BASIC METABOLIC PANEL (BMP) (12/28/2020 7:29 EDT) Sodium 134(L) 136 - 145 mmol/L 12/28/2020 8:19 T [facility] Potassium 3.9 3.5 - 5.0 mEq/L 12/28/2020 8:19 [facility] Chloride 99 96 - 110 mEq/L 12/28/2020 8:19 [facility] CO2 Total 28 22 - 32 mEq/L 12/28/2020 8:19 [facility] Anion Gap 7(L) 8 - 16 12/28/2020 8:19 [facility] Glucose 143(H) 70 - 100 mg/dL 12/28/2020 8:19 [facility] Calcium 8.1(L) 8.5 - 10.5 mg/dL 12/28/2020 8:19 [facility] BUN 8(L) 10 - 26 mg/dL 12/28/2020 8:19 [facility] Creatinine 0.53(L) 0.66 - 1.25 mg/dL 12/28/2020 8:19 [facility] eGFR 116 >60 mL/min/1.7 3m2 12/28/2020 8:19 [facility] Comment:eGFR calculated sarahi krishnan CKD-EPI equation for non- Americans. Multiply eGFR by 1.16 for patients. Blood VENOUS BLOOD / Unknown Venipuncture / Unknown 12/28/2020 7:29 EDT 12/28/2020 7:45 EDT us Marciano Segovia MD CHEMISTRY & BLOOD GAS ORD ERABLES Final Result [facility] [address] [place] [address] * (ABNORMAL) POCT GLUCOSE, INTERFACED (12/27/2020 20:48 EDT) Glucose, POC 201(H) 70 - 100 mg/dL 12/27/2020 20:54 T [facility] HN LAB POC COMMENT (GLUCOSE) Test Performed by Nursing Services 12/27/2020 20:54 [facility] Blood CAPILLARY BLOOD / Unknown 12/27/2020 20:48 EDT 12/27/2020 20:54 EDT us Gilda Black MD POINT OF CARE TEST ORDERABLES Fi nal Result Performing Organization Address City/[facility]/ZIP Co de Phone Number [facility] [address] [place] [address] * (ABNORMAL) POCT GLUCOSE, INTERFACED (12/27/2020 17:26 EDT) Glucose, POC 254(H) 70 - 100 mg/dL 12/27/2020 17:31 EDT [facility] HN LAB POC COMMENT (GLUCOSE) Test Performed by Nursing Services 12/27/2020 17:31 EDT [facility] Blood CAPILLARY BLOOD / Unknown 12/27/2020 17:26 EDT 12/27/2020 17:31 EDT Gilda Black MD POINT OF CARE TEST ORDERABLES Fi nal Result Performing Organization Address [facility] Co de Phone Number [facility] [address] [place] [address] * (ABNORMAL) POCT GLUCOSE, INTERFACED (12/27/2020 12:10 EDT) Glucose, POC 266(H) 70 - 100 mg/dL 12/27/2020 12:11 EDT [facility] HN LAB POC COMMENT (GLUCOSE) Test Performed by Nursing Services 12/27/2020 12:11 EDT [facility] Blood CAPILLARY BLOOD / Unknown 12/27/2020 12:10 EDT 12/27/2020 12:11 EDT us Gilda Black MD POINT OF CARE TEST ORDERABLES Fi nal Result Performing Organization Address City/[facility]/ZIP Co de Phone Number [facility] [address] [place] [address] * (ABNORMAL) C REACTIVE PROTEIN (12/27/2020 9:40 EDT) C-Reactive Protein 219.2(H) <10.0 mg/L 12/27/2020 21:01 EDT [facility] Blood VENOUS BLOOD / Unknown Venipuncture / Unknown 12/27/2020 9:40 EDT 12/27/2020 10:29 EDT us Js Meza MD CHEMISTRY & BLOOD GAS ORDERABLES Final Result Performing Organization Address [facility] de Phone Number [facility] [address] [place] [address] * (ABNORMAL) SED. RATE:WESTERGREN (12/27/2020 9:40 EDT) Pathologist [facility] [place] Sed Rate >100(H) 0 - 20 mm/hr 12/27/2020 20:24 EDT [facility] Comment:Note: Sample greater than 4 hours old (but less than 12 hours) when tested. If refrigerated, sample is stable when tested within 12 hours of collection. Blood VENOUS BLOOD / Unknown Venipuncture / Unknown 12/27/2020 9:40 EDT 12/27/2020 10:31 EDT us Js Meza MD HEMATOLOGY & PF4 ORDERABLES Sobia l Result Performing Organization Address [facility] Co de Phone Number [facility] [address] [place] [address] * (ABNORMAL) COMPLETE BLOOD COUNT (12/27/2020 9:40 EDT) [facility] WBC 10.20 4.00 - 10.40 K/cmm 12/27/2020 10:37 EDT [facility] RBC 4.02(L) 4.36 - 5.78 M/cmm 12/27/2020 10:37 EDT [facility] Hemoglobin 12.2(L) 13.8 - 17.3 gm/dL 12/27/2020 10:37 EDT [facility] HCT 35.6(L) 39.5 - 50.2 % 12/27/2020 10:37 EDT [facility] MCV 89 81 - 95 fl 12/27/2020 10:37 EDT [facility] MCH 30.3 27.6 - 33.0 pg 12/27/2020 10:37 EDT [facility] MCHC 34.3 32.8 - 36.4 gm/dL 12/27/2020 10:37 T [facility] RDW-CV 13.6 <14.2 % 12/27/2020 10:37 T [facility] RDW-SD 44.5 <46.0 fl 12/27/2020 10:37 [facility] PLT 335 141 - 377 K/cmm 12/27/2020 10:37 [facility] MPV 10.1 9.5 - 12.7 fl 12/27/2020 10:37 [facility] Blood VENOUS BLOOD / Unknown Venipuncture / Unknown 12/27/2020 9:40 EDT 12/27/2020 10:31 EDT us Marciano Segovia MD HEMATOLOGY & PF4 ORDERABL ES Final Result [facility] [address] [place] [address] * (ABNORMAL) BASIC METABOLIC PANEL (BMP) (12/27/2020 9:40 EDT) Sodium 133(L) 136 - 145 mmol/L 12/27/2020 11:01 [facility] Potassium 3.9 3.5 - 5.0 mEq/L 12/27/2020 11:01 [facility] Chloride 95(L) 96 - 110 mEq/L 12/27/2020 11:01 [facility] CO2 Total 24 22 - 32 mEq/L 12/27/2020 11:01 [facility] Anion Gap 14 8 - 16 12/27/2020 11:01 [facility] Glucose 275(H) 70 - 100 mg/dL 12/27/2020 11:01 [facility] Calcium 8.7 8.5 - 10.5 mg/dL 12/27/2020 11:01 EDT [facility] BUN 9(L) 10 - 26 mg/dL 12/27/2020 11:01 T [facility] Creatinine 0.60(L) 0.66 - 1.25 mg/dL 12/27/2020 11:01 T [facility] eGFR 110 >60 mL/min/1.7 3m2 12/27/2020 11:01 T [facility] Comment:eGFR calculated sarahi krishnan CKD-EPI equation for non- Americans. Multiply eGFR by 1.16 for patients. Blood VENOUS BLOOD / Unknown Venipuncture / Unknown 12/27/2020 9:40 EDT 12/27/2020 10:29 EDT us Marciano Segovia MD CHEMISTRY & BLOOD GAS ORD ERABLES Final Result Performing Organization Address City/[facility]/ZIP Co de Phone Number [facility] [address] [place] [address] * (ABNORMAL) POCT GLUCOSE, INTERFACED (12/27/2020 7:49 EDT) Glucose, POC 150(H) 70 - 100 mg/dL 12/27/2020 7:50 EDT [facility] HN LAB POC COMMENT (GLUCOSE) Test Performed by Nursing Services 12/27/2020 7:50 EDT [facility] Blood CAPILLARY BLOOD / Unknown 12/27/2020 7:49 EDT 12/27/2020 7:50 EDT us Gilda Black MD POINT OF CARE TEST ORDERABLES Fi nal Result [facility] [address] [place] [address] * (ABNORMAL) POCT GLUCOSE, INTERFACED (12/26/2020 22:04 EDT) Glucose, POC 186(H) 70 - 100 mg/dL 12/26/2020 22:06 EDT [facility] HN LAB POC COMMENT (GLUCOSE) Test Performed by Nursing Services 12/26/2020 22:06 EDT [facility] Blood CAPILLARY BLOOD / Unknown 12/26/2020 22:04 EDT 12/26/2020 22:05 EDT us Gilda Black MD POINT OF CARE TEST ORDERABLES Fi nal Result Performing Organization Address City/[facility]/ZIP Co de Phone Number [facility] [address] [place] [address] * (ABNORMAL) POCT GLUCOSE, INTERFACED (12/26/2020 18:02 EDT) Glucose, POC 129(H) 70 - 100 mg/dL 12/26/2020 20:41 EDT [facility] HN LAB POC COMMENT (GLUCOSE) Test Performed by Nursing Services 12/26/2020 20:41 EDT [facility] Blood CAPILLARY BLOOD / Unknown 12/26/2020 18:02 EDT 12/26/2020 20:41 EDT us Gilda Black MD POINT OF CARE TEST ORDERABLES Fi nal Result Performing Organization Address [facility] Co de Phone Number [facility] [address] [place] [address] * (ABNORMAL) POCT GLUCOSE, INTERFACED (12/26/2020 12:10 EDT) Glucose, POC 250(H) 70 - 100 mg/dL 12/26/2020 12:20 EDT [facility] HN LAB POC COMMENT (GLUCOSE) Test Performed by Nursing Services 12/26/2020 12:20 EDT [facility] Blood CAPILLARY BLOOD / Unknown 12/26/2020 12:10 EDT 12/26/2020 12:20 EDT us Gilda Black MD POINT OF CARE TEST ORDERABLES Fi nal Result Performing Organization Address City/[facility]/ZIP Co de Phone Number [facility] [address] [place] [address] * (ABNORMAL) POCT GLUCOSE, INTERFACED (12/26/2020 8:46 EDT) Pathologist [facility] [place] Glucose, POC 177(H) 70 - 100 mg/dL 12/26/2020 8:47 EDT [facility] HN LAB POC COMMENT (GLUCOSE) Test Performed by Nursing Services 12/26/2020 8:47 [facility] Blood CAPILLARY BLOOD / Unknown 12/26/2020 8:46 EDT 12/26/2020 8:47 EDT us Gilda Black MD POINT OF CARE TEST ORDERABLES Fi nal Result [facility] [address] [place] [address] * (ABNORMAL) COMPLETE BLOOD COUNT (12/26/2020 8:09 EDT) [facility] WBC 8.75 4.00 - 10.40 K/cmm 12/26/2020 8:42 [facility] RBC 3.73(L) 4.36 - 5.78 M/cmm 12/26/2020 8:42 [facility] Hemoglobin 11.7(L) 13.8 - 17.3 gm/dL 12/26/2020 8:42 [facility] HCT 33.3(L) 39.5 - 50.2 % 12/26/2020 8:42 [facility] MCV 89 81 - 95 fl 12/26/2020 8:42 [facility] MCH 31.4 27.6 - 33.0 pg 12/26/2020 8:42 [facility] MCHC 35.1 32.8 - 36.4 gm/dL 12/26/2020 8:42 [facility] RDW-CV 13.3 <14.2 % 12/26/2020 8:42 [facility] RDW-SD 43.7 <46.0 fl 12/26/2020 8:42 [facility] PLT 275 141 - 377 K/cmm 12/26/2020 8:42 [facility] MPV 10.2 9.5 - 12.7 fl 12/26/2020 8:42 [facility] Blood VENOUS BLOOD / Unknown Venipuncture / Unknown 12/26/2020 8:09 EDT 12/26/2020 8:33 EDT Marciano Segovia MD HEMATOLOGY & PF4 ORDERABL ES Final Result [facility] [address] [place] [address] * (ABNORMAL) BASIC METABOLIC PANEL (BMP) (12/26/2020 8:09 EDT) Sodium 134(L) 136 - 145 mmol/L 12/26/2020 9:02 [facility] Potassium 3.5 3.5 - 5.0 mEq/L 12/26/2020 9:02 [facility] Chloride 101 96 - 110 mEq/L 12/26/2020 9:02 [facility] CO2 Total 27 22 - 32 mEq/L 12/26/2020 9:02 [facility] Glucose 213(H) 70 - 100 mg/dL 12/26/2020 9:02 [facility] Calcium 8.3(L) 8.5 - 10.5 mg/dL 12/26/2020 9:02 [facility] Calculated Calcium 9.4 8.5 - 10.5 mg/dL 12/26/2020 9:02 [facility] BUN 8(L) 10 - 26 mg/dL 12/26/2020 9:02 [facility] Creatinine 0.55(L) 0.66 - 1.25 mg/dL 12/26/2020 9:02 [facility] eGFR 114 >60 mL/min/1.7 3m2 12/26/2020 9:02 [facility] Comment:eGFR calculated usin g CKD-EPI equation for non- Americans. Multiply eGFR by 1.16 for patients. Blood VENOUS BLOOD / Unknown Venipuncture / Unknown 12/26/2020 8:09 EDT 12/26/2020 8:36 EDT Marciano Segovia MD CHEMISTRY & BLOOD GAS ORD ERABLES Final Result Performing Organization Address City/[facility]/ZIP Co de Phone Number [facility] [address] [place] [address] * (ABNORMAL) POCT GLUCOSE, INTERFACED (12/25/2020 20:28 EDT) Glucose, POC 233(H) 70 - 100 mg/dL 12/25/2020 20:33 EDT [facility] HN LAB POC COMMENT (GLUCOSE) Test Performed by Nursing Services 12/25/2020 20:33 EDT [facility] Blood CAPILLARY BLOOD / Unknown 12/25/2020 20:28 EDT 12/25/2020 20:33 EDT Gilda Black MD POINT OF CARE TEST ORDERABLES Fi nal Result Performing Organization Address [facility] Co de Phone Number [facility] [address] [place] [address] * (ABNORMAL) POCT GLUCOSE, INTERFACED (12/25/2020 17:06 EDT) Glucose, POC 173(H) 70 - 100 mg/dL 12/25/2020 17:09 EDT [facility] HN LAB POC COMMENT (GLUCOSE) Test Performed by Nursing Services 12/25/2020 17:09 EDT [facility] Blood CAPILLARY BLOOD / Unknown 12/25/2020 17:06 EDT 12/25/2020 17:08 EDT us Gilda Black MD POINT OF CARE TEST ORDERABLES Fi nal Result Performing Organization Address City/[facility]/ZIP Co de Phone Number [facility] [address] [place] [address] * (ABNORMAL) POCT GLUCOSE, INTERFACED (12/25/2020 11:52 EDT) Pathologist [facility] [place] Glucose, POC 224(H) 70 - 100 mg/dL 12/25/2020 11:57 EDT [facility] HN LAB POC COMMENT (GLUCOSE) Test Performed by Nursing Services 12/25/2020 11:57 EDT [facility] Blood CAPILLARY BLOOD / Unknown 12/25/2020 11:52 EDT 12/25/2020 11:57 EDT us Gilda Black MD POINT OF CARE TEST ORDERABLES Fi nal Result [facility] [address] [place] [address] * (ABNORMAL) COMPLETE BLOOD COUNT (12/25/2020 8:03 EDT) [facility] WBC 10.58(H) 4.00 - 10.40 K/cmm 12/25/2020 8:34 [facility] RBC 3.57(L) 4.36 - 5.78 M/cmm 12/25/2020 8:34 [facility] Hemoglobin 11.0(L) 13.8 - 17.3 gm/dL 12/25/2020 8:34 [facility] HCT 31.1(L) 39.5 - 50.2 % 12/25/2020 8:34 [facility] MCV 87 81 - 95 fl 12/25/2020 8:34 [facility] MCH 30.8 27.6 - 33.0 pg 12/25/2020 8:34 [facility] MCHC 35.4 32.8 - 36.4 gm/dL 12/25/2020 8:34 [facility] RDW-CV 12.9 <14.2 % 12/25/2020 8:34 [facility] RDW-SD 41.2 <46.0 fl 12/25/2020 8:34 [facility] PLT 216 141 - 377 K/cmm 12/25/2020 8:34 [facility] MPV 10.4 9.5 - 12.7 fl 12/25/2020 8:34 [facility] Blood VENOUS BLOOD / Unknown Venipuncture / Unknown 12/25/2020 8:03 EDT 12/25/2020 8:23 EDT us Marciano Segovia MD HEMATOLOGY & PF4 ORDERABL ES Final Result [facility] [address] [place] [address] * (ABNORMAL) BASIC METABOLIC PANEL (BMP) (12/25/2020 8:03 EDT) Sodium 131(L) 136 - 145 mmol/L 12/25/2020 9:30 [facility] Potassium 3.3(L) 3.5 - 5.0 mEq/L 12/25/2020 9:30 [facility] Chloride 97 96 - 110 mEq/L 12/25/2020 9:30 [facility] CO2 Total 25 22 - 32 mEq/L 12/25/2020 9:30 [facility] Glucose 187(H) 70 - 100 mg/dL 12/25/2020 9:30 [facility] Calcium 8.2(L) 8.5 - 10.5 mg/dL 12/25/2020 9:30 [facility] Calculated Calcium 9.3 8.5 - 10.5 mg/dL 12/25/2020 9:30 [facility] BUN 8(L) 10 - 26 mg/dL 12/25/2020 9:30 [facility] Creatinine 0.55(L) 0.66 - 1.25 mg/dL 12/25/2020 9:30 [facility] eGFR 114 >60 mL/min/1.7 3m2 12/25/2020 9:30 [facility] Comment:eGFR calculated sarahi krishnan CKD-EPI equation for non- Americans. Multiply eGFR by 1.16 for patients. Blood VENOUS BLOOD / Unknown Venipuncture / Unknown 12/25/2020 8:03 EDT 12/25/2020 8:33 EDT Marciano Segovia MD CHEMISTRY & BLOOD GAS ORD ERABLES Final Result Performing Organization Address City/[facility]/ZIP Co de Phone Number [facility] [address] [place] [address] * (ABNORMAL) POCT GLUCOSE, INTERFACED (12/25/2020 7:56 EDT) Glucose, POC 180(H) 70 - 100 mg/dL 12/25/2020 8:01 EDT [facility] HN LAB POC COMMENT (GLUCOSE) Test Performed by Nursing Services 12/25/2020 8:01 EDT [facility] Blood CAPILLARY BLOOD / Unknown 12/25/2020 7:56 EDT 12/25/2020 8:01 EDT Gilda Black MD POINT OF CARE TEST ORDERABLES Fi nal Result Performing Organization Address [facility] Co de Phone Number [facility] [address] [place] [address] * (ABNORMAL) POCT GLUCOSE, INTERFACED (12/24/2020 20:53 EDT) Glucose, POC 188(H) 70 - 100 mg/dL 12/24/2020 20:59 EDT [facility] HN LAB POC COMMENT (GLUCOSE) Test Performed by Nursing Services 12/24/2020 20:59 EDT [facility] Blood CAPILLARY BLOOD / Unknown 12/24/2020 20:53 EDT 12/24/2020 20:59 EDT us Gilda Black MD POINT OF CARE TEST ORDERABLES Fi nal Result Performing Organization Address City/[facility]/ZIP Co de Phone Number [facility] [address] [place] [address] * (ABNORMAL) POCT GLUCOSE, INTERFACED (12/24/2020 17:09 EDT) Pathologist [facility] [place] Glucose, POC 161(H) 70 - 100 mg/dL 12/24/2020 17:10 EDT [facility] HN LAB POC COMMENT (GLUCOSE) Test Performed by Nursing Services 12/24/2020 17:10 EDT [facility] Blood CAPILLARY BLOOD / Unknown 12/24/2020 17:09 EDT 12/24/2020 17:10 EDT us Gilda Black MD POINT OF CARE TEST ORDERABLES Fi nal Result [facility] [address] [place] [address] * TRANSTHORACIC ECHO (TTE) COMPLETE W/DOPPLER W/CF NO CONTRAST (12/24/2020 14:15 EDT) Pathologist [facility] [place] Atrial Length A2C 2.7 cm [facility] [...] Stroke volume (SV), LVOT DP 70 ml [facility] Mitral peak gradient, D 2 mmHg [facility] LVOT mean velocity, S 0.6 m/s [facility] Mitral E-wave peak velocity 0.7 m/s [facility] Mitral pressure half-time 44 ms [facility] Mitral A-wave peak velocity 0.7 m/s [facility] LV Systolic Volume Index 7.0 mL/m2 [facility] LV Diastolic Volume Index 18.0 mL/m2 [facility] [place] Atrial Length A4C 3.7 cm [facility] LVOT ID, S 2.3 cm [facility] POI NT OF CARE Mitral deceleration slope 479 cm/s2 [facility] EF 61 % [facility] POIN T [facility] LA volume/bsa, ES, A4C 18.0 ml/m2 [facility] LA volumes, ES, A4C 42.0 ml [facility] LV Systolic Volume 17 mL [facility] LV Diastolic Volume 43 mL [facility] Stroke index (SV/bsa) LVOT DP 29.0 ml/m2 [facility] Interventricular Septum to Posterior Wall Thickness Ratio 1 [facility] P OINT OF C[facility] IVS thickness, ED, PLAX 0.9 cm [facility] LV e', medial 0.14 m/s [facility] LV e', average 0.13 m/s [facility] Pulmonic valve mean velocity, S 1 cm/s [facility] Ascending aorta ID, a-p 3.3 cm [facility] [place] Atrial Area A2C 14.5 cm2 [facility] LA/aortic root ratio 1.2 [facility] LV ID, ED, PLAX 4.6 3.5 - 6.0 cm [facility] LV ID, ES, PLAX 3.2 2.1 - 4.0 cm [facility] LV end diastolic volume 1-p A2C 41 ml [facility] LV ejection fraction, 1-p [...] color Doppler.The study was interpreted by [facility]. Pertinent images and [...] Growth at 5 days 12/29/2020 13:01 EDT [facility] Blood VENOUS BLOOD / Unknown Blood Culture / Unknown 12/24/2020 12:09 EDT 12/24/2020 12:57 EDT us Blake Staton MD MICROBIOLOGY - GENERAL ORDERAB LES Final Result Performing Organization Address City/[facility]/ZIP Co de Phone Number [facility] [address] [place] [address] * BACTERIAL CULTURE, BLOOD (12/24/2020 12:01 EDT) Organism ID No Growth at 5 days 12/29/2020 13:01 EDT [facility] Blood VENOUS BLOOD / Unknown Blood Culture / Unknown 12/24/2020 12:01 EDT 12/24/2020 12:57 EDT us Blake Staton MD MICROBIOLOGY - GENERAL ORDERAB LES Final Result Performing Organization Address City/[facility]/ZIP Co de Phone Number [facility] [address] [place] [address] * (ABNORMAL) POCT GLUCOSE, INTERFACED (12/24/2020 11:57 EDT) Glucose, POC 128(H) 70 - 100 mg/dL 12/24/2020 11:58 EDT [facility] HN LAB POC COMMENT (GLUCOSE) Test Performed by Nursing Services 12/24/2020 11:58 EDT [facility] Blood CAPILLARY BLOOD / Unknown 12/24/2020 11:57 EDT 12/24/2020 11:58 EDT us Gilda Black MD POINT OF CARE TEST ORDERABLES Fi nal Result [facility] [address] [place] [address] * (ABNORMAL) COMPLETE BLOOD COUNT (12/24/2020 9:44 EDT) WBC 13.75(H) 4.00 - 10.40 K/cmm 12/24/2020 10:39 EDT [facility] RBC 3.60(L) 4.36 - 5.78 M/cmm 12/24/2020 10:39 EDT [facility] Hemoglobin 10.8(L) 13.8 - 17.3 gm/dL 12/24/2020 10:39 EDT [facility] HCT 30.7(L) 39.5 - 50.2 % 12/24/2020 10:39 EDT [facility] MCV 85 81 - 95 fl 12/24/2020 10:39 EDT [facility] MCH 30.0 27.6 - 33.0 pg 12/24/2020 10:39 EDT [facility] MCHC 35.2 32.8 - 36.4 gm/dL 12/24/2020 10:39 T [facility] RDW-CV 12.8 <14.2 % 12/24/2020 10:39 EDT [facility] RDW-SD 40.0 <46.0 fl 12/24/2020 10:39 EDT [facility] PLT 182 141 - 377 K/cmm 12/24/2020 10:39 T [facility] MPV 10.5 9.5 - 12.7 fl 12/24/2020 10:39 T [facility] Blood VENOUS BLOOD / Unknown Venipuncture / Unknown 12/24/2020 9:44 EDT 12/24/2020 10:29 EDT us Marciano Segovia MD HEMATOLOGY & PF4 ORDERABL ES Final Result [facility] [address] [place] [address] * (ABNORMAL) BASIC METABOLIC PANEL (BMP) (12/24/2020 9:44 EDT) Sodium 130(L) 136 - 145 mmol/L 12/24/2020 10:49 EDT [facility] Potassium 3.4(L) 3.5 - 5.0 mEq/L 12/24/2020 10:49 EDT [facility] Chloride 95(L) 96 - 110 mEq/L 12/24/2020 10:49 T [facility] CO2 Total 24 22 - 32 mEq/L 12/24/2020 10:49 T [facility] Glucose 174(H) 70 - 100 mg/dL 12/24/2020 10:49 T [facility] Calcium 8.4(L) 8.5 - 10.5 mg/dL 12/24/2020 10:49 T [facility] Calculated Calcium 9.4 8.5 - 10.5 mg/dL 12/24/2020 10:49 EDT [facility] BUN 10 10 - 26 mg/dL 12/24/2020 10:49 [facility] Creatinine 0.57(L) 0.66 - 1.25 mg/dL 12/24/2020 10:49 EDT [facility] eGFR 112 >60 mL/min/1.7 3m2 12/24/2020 10:49 T [facility] Comment:eGFR calculated sarahi krishnan CKD-EPI equation for non- Americans. Multiply eGFR by 1.16 for patients. Blood VENOUS BLOOD / Unknown Venipuncture / Unknown 12/24/2020 9:44 EDT 12/24/2020 10:28 EDT us Marciano Segovia MD CHEMISTRY & BLOOD GAS ORD ERABLES Final Result [facility] [address] [place] [address] * (ABNORMAL) POCT GLUCOSE, INTERFACED (12/24/2020 9:35 EDT) Glucose, POC 206(H) 70 - 100 mg/dL 12/24/2020 9:37 EDT [facility] HN LAB POC COMMENT (GLUCOSE) Test Performed by Nursing Services 12/24/2020 9:37 EDT [facility] Blood CAPILLARY BLOOD / Unknown 12/24/2020 9:35 EDT 12/24/2020 9:36 EDT Gilda Black MD POINT OF CARE TEST ORDERABLES Fi nal Result Performing Organization Address City/[facility]/ZIP Co de Phone Number [facility] [address] [place] [address] * (ABNORMAL) POCT GLUCOSE, INTERFACED (12/23/2020 22:15 EDT) Glucose, POC 221(H) 70 - 100 mg/dL 12/23/2020 22:17 EDT [facility] HN LAB POC COMMENT (GLUCOSE) Test Performed by Nursing Services 12/23/2020 22:17 EDT [facility] Blood CAPILLARY BLOOD / Unknown 12/23/2020 22:15 EDT 12/23/2020 22:17 EDT Gilda Black MD POINT OF CARE TEST ORDERABLES Fi nal Result Performing Organization Address City/[facility]/ZIP Co de Phone Number [facility] [address] [place] [address] * (ABNORMAL) POCT GLUCOSE, INTERFACED (12/23/2020 19:34 EDT) Glucose, POC 298(H) 70 - 100 mg/dL 12/23/2020 19:35 EDT [facility] HN LAB POC COMMENT (GLUCOSE) Test Performed by Nursing Services 12/23/2020 19:35 EDT [facility] Blood CAPILLARY BLOOD / Unknown 12/23/2020 19:34 EDT 12/23/2020 19:35 EDT us Gilda Black MD POINT OF CARE TEST ORDERABLES Fi nal Result Performing Organization Address City/[facility]/ZIP Co de Phone Number [facility] [address] [place] [address] * (ABNORMAL) POCT GLUCOSE, INTERFACED (12/23/2020 13:34 EDT) Glucose, POC 319(H) 70 - 100 mg/dL 12/23/2020 13:39 EDT [facility] HN LAB POC COMMENT (GLUCOSE) Test Performed by Nursing Services 12/23/2020 13:39 EDT [facility] Blood CAPILLARY BLOOD / Unknown 12/23/2020 13:34 EDT 12/23/2020 13:39 EDT Gilda Black MD POINT OF CARE TEST ORDERABLES Fi nal Result Performing Organization Address [facility] Co de Phone Number [facility] [address] [place] [address] * CT HIP LEFT WO CONTRAST (12/23/2020 8:42 EDT) Anatomical Region Laterality Modality Lower Extremities Left Computed Tomog janak 12/23/2020 10:3 5 EDT Impressions 12/23/2020 10:35 EDT FINDINGS / IMPRESSION: * ??No evidence of acute fracture or dislocation. 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 * Small fat-containing inguinal hernias. us Sachin Venegas MD IMG CT ORDERABLES Final Resul t * (ABNORMAL) BASIC METABOLIC PANEL (BMP) (12/23/2020 8:04 EDT) Sodium 129(L) 136 - 145 mmol/L 12/23/2020 8:33 EDT [facility] Potassium 3.1(L) 3.5 - 5.0 mEq/L 12/23/2020 8:33 [facility] Chloride 100 96 - 110 mEq/L 12/23/2020 8:33 [facility] CO2 Total 17(L) 22 - 32 mEq/L 12/23/2020 8:33 [facility] Glucose 305(H) 70 - 100 mg/dL 12/23/2020 8:33 [facility] Calcium 7.1(L) 8.5 - 10.5 mg/dL 12/23/2020 8:33 [facility] Calculated Calcium 8.5 8.5 - 10.5 mg/dL 12/23/2020 8:33 [facility] BUN 16 10 - 26 mg/dL 12/23/2020 8:33 [facility] Creatinine 0.53(L) 0.66 - 1.25 mg/dL 12/23/2020 8:33 [facility] eGFR 116 >60 mL/min/1.7 3m2 12/23/2020 8:33 [facility] Comment:eGFR calculated sarahi krishnan CKD-EPI equation for non- Americans. Multiply eGFR by 1.16 for patients. Blood VENOUS BLOOD / Unknown Venipuncture / Unknown 12/23/2020 8:04 EDT 12/23/2020 8:07 EDT us Mary Ann Pinto MD CHEMISTRY & BLOOD GAS O RDERABLES Final Result [facility] [address] [place] [address] * (ABNORMAL) BACTERIAL CULTURE, BLOOD (12/23/2020 8:01 EDT) Pathologist [facility] [place] Organism ID Staphylococcus aureus(AA) VITEK SUSCEPTIBILITY 7:50 EDT [facility] Comment: Detected in the anaerobic [...] Vancomycin VITEK SUSCEPTIBILIT Y 1 ug/mL: Susceptible us Mary Ann Pinto MD MICROBIOLOGY - GENERAL ORDERABLES Final Result [facility] [address] [place] [address] * (ABNORMAL) HEMOGLOBIN A1C (12/23/2020 7:02 EDT) Pathologist [facility], [place] Hemoglobin A1c 13.9(H) <5.7 % 12/23/2020 12:55 EDT [facility] Comment: Glycemic Status References: Normal: ??<5.7% Pre-Diabetes: ??5.7% - 6.4% Diagnostic of Diabetes: ??> or = 6.5% (if confirmed) Goals for glycemic control in diabetics (ADA 2017): <7.0% target for non adults with diabetes. <7.5% target for children and adolescents with Type I Diabetes. More or less stringent targets may be appropriate for individual patients. Est Avg Glucose 352 mg/dL 12:55 [facility] Comment:The eAG represents t he A1c result expressed as average glucose in mg/dL. Blood VENOUS BLOOD / Unknown Venipuncture / Unknown 12/23/2020 7:02 EDT 12/23/2020 7:06 EDT us Blake Staton MD CHEMISTRY & BLOOD GAS ORDERABL ES Final Result [facility] [address] [place] [address] * (ABNORMAL) COMPLETE BLOOD COUNT AND DIFFERENTIAL (12/23/2020 7:02 EDT) WBC 12.88(H) 4.00 - 10.40 K/cmm 12/23/2020 7:20 [facility] RBC 3.77(L) 4.36 - 5.78 M/cmm 12/23/2020 7:20 [facility] Hemoglobin 11.5(L) 13.8 - 17.3 gm/dL 12/23/2020 7:20 [facility] HCT 32.6(L) 39.5 - 50.2 % 12/23/2020 7:20 [facility] MCV 87 81 - 95 fl 12/23/2020 7:20 [facility] MCH 30.5 27.6 - 33.0 pg 12/23/2020 7:20 [facility] MCHC 35.3 32.8 - 36.4 gm/dL 12/23/2020 7:20 [facility] RDW-CV 12.8 <14.2 % 12/23/2020 7:20 [facility] RDW-SD 40.5 <46.0 fl 12/23/2020 7:20 [facility] PLT 215 141 - 377 K/cmm 12/23/2020 7:20 [facility] MPV 10.9 9.5 - 12.7 fl 12/23/2020 7:20 [facility] % Neutrophils 87.5 % 12/23/2020 7:20 [facility] % Lymphocytes 4.3 % 12/23/2020 7:20 [facility] % Monocytes 7.1 % 12/23/2020 7:20 [facility] % Eosinophils 0.0 % 12/23/2020 7:20 [facility] % Basophils 0.2 % 12/23/2020 7:20 [facility] % Immature Grans 0.9 % 12/24/19 7:20 [facility] Absolute Neutrophils 11.27(H) 2.20 - 8.85 K/cmm 12/23/2020 7:20 [facility] Absolute Lymphocytes 0.56(L) 1.09 - 3.30 K/cmm 12/23/2020 7:20 [facility] Absolute Monocytes 0.92(H) 0.10 - 0.80 K/cmm 12/23/2020 7:20 [facility] Absolute Eosinophils 0.00(L) 0.03 - 0.61 K/cmm 12/23/2020 7:20 [facility] ABS Basophils 0.02 0.01 - 0.11 K/cmm 12/23/2020 7:20 [facility] Absolute Immature Grans 0.11(H) 0.00 - 0.06 K/cmm 12/23/2020 7:20 [facility] Type of Differential: Auto 12/23/2020 7:20 [facility] Blood VENOUS BLOOD / Unknown Venipuncture / Unknown 12/23/2020 7:02 EDT 12/23/2020 7:06 EDT us Mary Ann Pinto MD PACKAGES & DNA PROBE OR DERABLES Final Result Performing Organization Address City/[facility]/ZIP Co de Phone Number [facility] [address] [place] [address] * (ABNORMAL) BACTERIAL CULTURE, BLOOD (12/23/2020 7:02 EDT) Pathologist [facility] [place] Organism ID Staphylococcus aureus(AA) 12/26/2020 7:51 EDT [facility] Comment: Detected in the aerobic bottle at 22.9 hours Susceptible to nafcillin, cephalosporins and other beta lactam antibiotics (mecA gene product absent). [place] morphology consistent with other culture from same site/ source collected on the same day. Staphylococcus aureus is a life threatening infection when found in the blood. It should NOT be considered a contaminant. Staphylococcus aureus bacteremia should be treated with IV antibiotics. Infectious Disease consultation is encouraged. Blood VENOUS BLOOD / Unknown Blood Culture / Unknown 12/23/2020 7:02 EDT 12/23/2020 7:36 EDT us Mary Ann Pinto MD MICROBIOLOGY - GENERAL ORDERABLES Final Result Performing Organization Address City/[facility]/ZIP Co de Phone Number [facility] [address] [place] [address] * (ABNORMAL) BASIC METABOLIC PANEL (BMP) (12/23/2020 3:14 EDT) Pathologist [facility] [place] Sodium 129(L) 136 - 145 mmol/L 12/23/2020 3:36 EDT [facility] Potassium 3.9 3.5 - 5.0 mEq/L 12/23/2020 3:36 EDT [facility] Chloride 95(L) 96 - 110 mEq/L 12/23/2020 3:36 EDT [facility] CO2 Total 22 22 - 32 mEq/L 12/23/2020 3:36 EDT [facility] Glucose 254(H) 70 - 100 mg/dL 12/23/2020 3:36 EDT [facility] Calcium 8.6 8.5 - 10.5 mg/dL 12/23/2020 3:36 EDT [facility] Calculated Calcium 9.4 8.5 - 10.5 mg/dL 12/23/2020 3:36 EDT [facility] BUN 18 10 - 26 mg/dL 12/23/2020 3:36 EDT [facility] Creatinine 0.69 0.66 - 1.25 mg/dL 12/23/2020 3:36 EDT [facility] eGFR 104 >60 mL/min/1.7 3m2 12/23/2020 3:36 EDT [facility] Comment:eGFR calculated sarahi krishnan CKD-EPI equation for non- Americans. Multiply eGFR by 1.16 for patients. Blood VENOUS BLOOD / Unknown Venipuncture / Unknown 12/23/2020 3:14 EDT 12/23/2020 3:16 EDT Alessandro Hernandez MD CHEMISTRY & BLOOD GAS ORDERAB LES Final Result [facility] [address] [place] [address] * (ABNORMAL) ANAEROBE CULTURE/SMEAR(INC. AEROBES), OTHER (12/23/2020 2:12 EDT) Organism ID Moderate Streptococcus agalactiae (Group B)(A) 7:31 EDT [facility] Comment:Penicillin and ampic illin are drugs of choice for treatment of beta hemolytic streptococcal infections. Organism ID Few Staphylococcus aureus(A) VITEK SUSCEPTIBILITY 7:31 T [facility] Comment:Susceptible to nafci llin, cephalosporins and other beta lactam antibiotics (mecA gene product absent). Organism ID Few mixed gram positive growth(A) 7:31 EDT [facility] Smear Few Neutrophils Present(A) 7:31 EDT [facility] Smear Many Mixed Gram Positive Organisms(A) 7:31 EDT [facility] Bone ENTIRE FOOT / Unknown [...] ORDERA BLES Final Result Performing Organization Address [facility]/ZIP Co de Phone Number [facility] [address] [place] [address] * [place] GUIDED INJECT/ASPIR LEFT HIP (12/23/2020 0:52 EDT) Narrative 12/30/2020 9:26 EDT This is a non-reportable exam. Sachin Venegas MD IMG FLUOROSCOPY ORDERABLES Fi nal Result * (ABNORMAL) POCT GLUCOSE, INTERFACED (12/23/2020 0:30 EDT) Glucose, POC 270(H) 70 - 100 mg/dL 12/23/2020 0:35 EDT [facility] HN LAB POC COMMENT (GLUCOSE) Test Performed by Nursing Services 12/23/2020 0:35 EDT [facility] Blood CAPILLARY BLOOD / Unknown 12/23/2020 0:30 EDT 12/23/2020 0:35 EDT Alessandro Hernandez MD POINT OF CARE TEST ORDERABLES Final Result Performing Organization Address [facility]/ZIP Co de Phone Number [facility] [address] [place] [address] * LACTIC ACID (12/22/2020 23:44 EDT) Lactic Acid 1.6 <=2.0 mmol/L 12/23/2020 0:01 EDT [facility] Blood VENOUS BLOOD / Unknown Venipuncture / Unknown 12/22/2020 23:44 EDT 12/22/2020 23:49 EDT us Alessandro Hernandez MD CHEMISTRY & BLOOD GAS ORDERAB LES Final Result Performing Organization Address [facility]/ZIP Co de Phone Number [facility] [address] [place] [address] * HOLD GREEN TOP (12/22/2020 20:37 EDT) Hold Hold 12/22/2020 21:46 EDT [facility] Blood VENOUS BLOOD / Unknown Venipuncture / Unknown 12/22/2020 20:37 EDT 12/22/2020 20:40 EDT us Alessandro Hernandez MD LAB INFO SERVICE AND SUPPORT & PHONE RESULT Final Result Performing Organization Address [facility]/ZIP Co de Phone Number [facility] [address] [place] [address] * COVID-19 TEST [facility] PCR (12/22/2020 20:36 EDT) Swab ENTIRE NASOPHARYNX / Unknown Swab / Unknown 12/22/2020 20:36 EDT 12/22/2020 20:42 EDT us Alessandro Hernandez MD MICROBIOLOGY - GENERAL ORDERA BLES Final Result Performing Organization Address City/[facility]/ZIP Co de Phone Number [facility] [address] [place] [address] * HOLD BLUE TOP (12/22/2020 20:36 EDT) Hold Hold 12/22/2020 21:46 EDT [facility] Blood VENOUS BLOOD / Unknown Venipuncture / Unknown 12/22/2020 20:36 EDT 12/22/2020 20:40 EDT us Alessandro Hernandez MD LAB INFO SERVICE AND SUPPORT & PHONE RESULT Final Result Performing Organization Address City/[facility]/ZIP Co de Phone Number [facility] [address] [place] [address] * COVID-19 TESTING (12/22/2020 20:36 EDT) COVID-19 rt-PCR Result Negative Negative 12/22/2020 21:49 EDT [facility] Comment: This test [...] history, and epidemiological information. Performed on the [employer] GeneXpert Instrument Performing Lab GeneXpert [facility] Lab 12/22/2020 21:49 EDT [facility] Swab ENTIRE NASOPHARYNX / Unknown Swab / Unknown 12/22/2020 20:36 EDT 12/22/2020 20:42 EDT Alessandro Hernandez MD MICROBIOLOGY - GENERAL ORDERA BLES Final Result [facility] [address] [place] [address] * (ABNORMAL) BETA HYDROXYBUTYRATE (12/22/2020 20:35 EDT) Beta Hydroxybutyrate 4.2(H) <0.4 mmol/L 12/22/2020 22:37 EDT [facility] Comment:Moderate hemolysis i dentified, interpret with caution as results may be affected due to hemolysis. Blood VENOUS BLOOD / Unknown Venipuncture / Unknown 12/22/2020 20:35 EDT 12/22/2020 20:40 EDT Alessandro Hernandez MD CHEMISTRY & BLOOD GAS ORDERAB LES Final Result Performing Organization Address [facility] Co de Phone Number [facility] [address] [place] [address] * (ABNORMAL) DIFFERENTIAL, AUTOMATED MANUAL (12/22/2020 20:35 EDT) % Neutrophils 78.3 % 12/22/2020 21:50 EDT [facility] % Banded Neutrophils 10.4 % 12/22/2020 21:50 T [facility] % Lymphocytes 3.5 % 12/22/2020 21:50 EDT [facility] % Monocytes 7.8 % 12/22/2020 21:50 T [facility] Absolute Neutrophils 11.49(H) 2.20 - 8.85 K/cmm 12/22/2020 21:50 EDT [facility] Absolute Bands 1.53 K/cmm 12/22/2020 21:50 T [facility] Absolute Lymphocytes 0.51(L) 1.09 - 3.30 K/cmm 12/22/2020 21:50 T [facility] Absolute Monocytes 1.15(H) 0.10 - 0.80 K/cmm 12/22/2020 21:50 T [facility] Blood VENOUS BLOOD / Unknown Venipuncture / Unknown 12/22/2020 20:35 EDT 12/22/2020 20:40 EDT Alessandro Hernandez MD HEMATOLOGY & PF4 ORDERABLES F inal Result Performing Organization Address City/[facility]/ZIP Co de Phone Number [facility] [address] [place] [address] * (ABNORMAL) SED. RATE:WESTERGREN (12/22/2020 20:35 EDT) Sed Rate >100(H) 0 - 20 mm/hr 12/22/2020 21:40 EDT [facility] Blood VENOUS BLOOD / Unknown Venipuncture / Unknown 12/22/2020 20:35 EDT 12/22/2020 20:40 EDT Alessandro Hernandez MD HEMATOLOGY & PF4 ORDERABLES F inal Result Performing Organization Address City/[facility]/ZIP Co de Phone Number [facility] [address] [place] [address] * (ABNORMAL) C REACTIVE PROTEIN (12/22/2020 20:35 EDT) C-Reactive Protein 335.3(H) <10.0 mg/L 12/22/2020 21:35 EDT [facility] Blood VENOUS BLOOD / Unknown Venipuncture / Unknown 12/22/2020 20:35 EDT 12/22/2020 20:40 EDT Alessandro Hernandez MD CHEMISTRY & BLOOD GAS ORDERAB LES Final Result Performing Organization Address City/[facility] Co de Phone Number [facility] [address] [place] [address] * (ABNORMAL) COMPREHENSIVE METABOLIC PANEL (CMP) (12/22/2020 20:35 EDT) Sodium 129(L) 136 - 145 mmol/L 12/22/2020 21:04 T [facility] Potassium 4.7 3.5 - 5.0 mEq/L 12/22/2020 21:04 [facility] Comment:Moderate hemolysis i dentified, interpret with caution as hemolysis will elevate potassium result. Chloride 90(L) 96 - 110 mEq/L 12/22/2020 21:04 [facility] CO2 Total 18(L) 22 - 32 mEq/L 12/22/2020 21:04 [facility] Glucose 282(H) 70 - 100 mg/dL 12/22/2020 21:04 [facility] BUN 15 10 - 26 mg/dL 12/22/2020 21:04 [facility] Comment:Moderate hemolysis i dentified, interpret with caution as results may be affected due to hemolysis. Creatinine 0.65(L) 0.66 - 1.25 mg/dL 12/22/2020 21:04 [facility] eGFR 106 >60 mL/min/1.7 3m2 12/22/2020 21:04 [facility] Comment:eGFR calculated usin g CKD-EPI equation for non- Americans. Multiply eGFR by 1.16 for patients. Total Protein 7.4 6.3 - 8.2 g/dL 12/22/2020 21:04 [facility] Comment:Moderate hemolysis i dentified, interpret with caution as results may be affected due to hemolysis. Albumin 3.8 3.4 - 4.9 g/dL 12/22/2020 21:04 [facility] Comment:Moderate hemolysis i dentified, interpret with caution as results may be affected due to hemolysis. Alkaline Phosphatase 78 38 - 126 U/L 12/22/2020 21:04 [facility] Comment:Moderate hemolysis i dentified. Hemolysis will decrease ALKP result. Suggest re-evaluation if clinically indicated AST 49(H) 15 - 46 U/L 12/22/2020 21:04 [facility] Comment:Moderate hemolysis i dentified, interpret with caution as results may be affected due to hemolysis. ALT 23 <50 U/L 12/22/2020 21:04 [facility] Bilirubin, Total 1.5(H) <1.4 mg/dL 12/23/19 21:04 [facility] Comment:Moderate hemolysis i dentified, interpret with caution as results may be affected due to hemolysis. Calcium 8.8 8.5 - 10.5 mg/dL 12/22/2020 21:04 [facility] Calculated Calcium 9.0 8.5 - 10.5 mg/dL 12/22/2020 21:04 [facility] Comment:Moderate hemolysis i dentified, interpret with caution as results may be affected due to hemolysis. Blood VENOUS BLOOD / Unknown Venipuncture / Unknown 12/22/2020 20:35 EDT 12/22/2020 20:40 EDT us Alessandro Hernandez MD CHEMISTRY & BLOOD GAS ORDERAB LES Final Result [facility] [address] [place] [address] * (ABNORMAL) COMPLETE BLOOD COUNT AND DIFFERENTIAL (12/22/2020 20:35 EDT) WBC 14.68(H) 4.00 - 10.40 K/cmm 12/22/2020 20:56 T [facility] RBC 3.94(L) 4.36 - 5.78 M/cmm 12/22/2020 20:56 [facility] Hemoglobin 12.3(L) 13.8 - 17.3 gm/dL 12/22/2020 20:56 [facility] HCT 34.7(L) 39.5 - 50.2 % 12/22/2020 20:56 [facility] MCV 88 81 - 95 fl 12/22/2020 20:56 [facility] MCH 31.2 27.6 - 33.0 pg 12/22/2020 20:56 [facility] MCHC 35.4 32.8 - 36.4 gm/dL 12/22/2020 20:56 [facility] RDW-CV 12.4 <14.2 % 12/22/2020 20:56 [facility] RDW-SD 40.4 <46.0 fl 12/22/2020 20:56 [facility] PLT 200 141 - 377 K/cmm 12/22/2020 20:56 [facility] MPV 11.1 9.5 - 12.7 fl 12/22/2020 20:56 [facility] Type of Differential: Manual 12/22/2020 20:56 [facility] Blood VENOUS BLOOD / Unknown Venipuncture / Unknown 12/22/2020 20:35 EDT 12/22/2020 20:40 EDT us Alessandro Hernandez MD PACKAGES & DNA PROBE ORDERABL ES Final Result [facility] [address] [place] [address] * XR HIP LEFT 2-3 VIEWS, OPTIONAL [...] long-term current use of insulin (HCC-CMS) 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 (HCC-CMS) Chronic osteomyelitis of right foot with draining [...] last modification) on Caridad 12/23/20 at 1800, Until Discontinued, Routine Given 01/21/2021 [...] on Sun12/23/20 at 1115, Until Discontinued, Routine Given 01/21/2021 9:06 EST 20 mg Given 01/20/2021 8:10 EST 20 mg Given 01/19/2021 8:18 EST 20 mg bisacodyL (DULCOLAX) suppository 10 mg 10 mg, rectal, DAILY PRN, Starting on Sun01/18/21 at 0655, Until Sun01/21/21 at 1219, Constipation, Routine cholecalciferol (Vitamin D3) tablet 2,000 Units 2,000 [...] 1219, Wound Care Given 01/06/2021 21:02 EDT gabapentin (NEURONTIN) capsule 300 mg 300 mg, oral, 3 TIMES DAILY, First dose (after last modification) on Sun01/05/21 at 1400, Until Discontinued, Routine Given 01/21/2021 9:05 EST 300 mg Given 01/20/2021 20:53 EST 300 mg Given 01/20/2021 16:30 EST 300 mg insulin aspart U-100 (NOVOLOG FLEXPEN) injection 6 Units 6 Units (rounded from 5.785 Units = 0.05 Units/kg ? 115.7 kg), subcutaneous, 3 TIMES DAILY WITH MEALS, First dose (after last modification) on Sun01/17/21 at 1200, Until Discontinued, Routine Given 01/21/2021 9:07 EST 6 Units Given 01/20/2021 17:02 EST 6 Units Given 01/20/2021 11:46 EST 6 Units insulin aspart U-100 (NOVOLOG FLEXPEN) injection subcutaneous, 3 TIMES DAILY WITH MEALS, First dose (after last modification) on [place] 12/30/20 at 0800, Until Discontinued, Routine Given [...] on Sun01/17/21 at 2100, Until Discontinued, Routine Given 01/20/2021 21: 29 EST 30 Units Given 01/19/2021 20:44 EST 30 Units Given 01/18/2021 20:10 EST 30 Units levothyroxine (SYNTHROID) tablet 112 mcg 112 mcg, [...] 8:21 EST 1 Patch Le ft Thigh methocarbamoL (ROBAXIN) tablet 750 mg 750 mg, oral, 4 TIMES DAILY, First dose on Sun12/23/20 at 1200, Until Discontinued, Routine Given 01/21/2021 9:06 EST 7 50 mg Given 01/20/2021 20:53 EST 750 mg Given 01/20/2021 16:30 EST 750 mg morphine (MS CONTIN) CR tablet 15 mg 15 mg, oral, DAILY WITH BREAKFAST, First dose (after last modification) on 01/17/21 at 0800, Until Discontinued, Routine Given 01/21/2021 9:06 EST 15 mg Given 01/20/2021 8:11 EST 15 mg Given 01/19/2021 7:32 EST 15 mg morphine (MS CONTIN) CR tablet 30 mg 30 mg, oral, 2 TIMES DAILY WITH LUNCH & DINNER, First dose (after last modification) on Sun01/16/21 at 1215, Until Discontinued, Routine Given 01/20/2021 17:00 EST 30 mg Given 01/20/2021 11:45 EST 30 mg Given 01/19/2021 16:49 EST 30 mg morphine (MS IR) tablet 15 mg 15 mg, oral, EVERY 4 HOURS PRN, Starting on Sun01/11/21 at 2055, Until Sun01/21/21 at 1219, Pain, Routine Given 01/21/2021 6:21 EST 15 mg Given 01/20/2021 20:54 EST 15 mg Given 01/19/2021 16:15 EST 15 mg polyethylene glycol 3350 (MIRALAX) packet 34 g 34 g, oral, 2 TIMES DAILY, First dose (after last modification) on Sun01/14/21 at 2100, Until Discontinued, Routine Given 01/20/2021 20:54 EST 34 g Given 01/20/2021 8:07 EST 34 g Given 01/18/2021 20:06 EST 34 g senna (SENOKOT) tablet 2 Tablet 2 Tablet, oral, 2 TIMES DAILY, First dose (after last modification) on Sun01/09/21 at 2100, Until Discontinued, Routine Given 01/21/2021 [...] on Sun01/08/21 at 1215, Until Discontinued, Routine Given 01/21/2021 9:06 EST 0.4 mg Given 01/20/2021 8:10 EST 0.4 mg Given 01/19/2021 8:18 EST 0.4 mg zinc oxide (DESITIN) 40 % paste topical, PRN, Starting on 01/03/21 at 1740, Until 01/21/21 at 1219, Irritation Given 01/04/2021 14:05 EDT [...] HOURS, First dose (after last modification) on [place] 12/23/20 at 1800, Until Discontinued, Routine 0601 (Given [...] Dawn RN)1631 (Given - Provider: Kristina Dawn RN)2105 (Given - Provider: Yo Freitas [...] RN)2037 (Given - Provider: Erica Parikh RN) 0810 (Given - Provider: Kristina Dawn RN)1630 (Given - Provider: Kristina Dawn RN)2053 (Given - Provider: Yo Freitas RN) 0905 (Given - Provider: Ana Laura Salomon RN) ibuprofen (MOTRIN) tablet 400 mg (COMPLETED) 400 [...] Erica Parikh RN) 0600 (Given - Provider: rEica Parikh RN) 0618 (Given - Provider: Yo Freitas RN) lidocaine 5 % (LIDODERM) patch 1 Patch 1 Patch, transdermal, Administer over 12 Hours, DAILY, First dose on Sun12/23/20 at 1115, Until Discontinued, Routine 08 (Patch Applied - Provider: Kristina Dawn RN)2037 [...] on Sun12/23/20 at 1200, Until Discontinued, Routine 0732 (Given - Provider: Kristina Dawn RN)1206 (Given - Provider: Kristina Dawn RN)1613 (Given - Provider: Kristina Dawn RN)2037 (Given - Provider: Erica Parikh RN) 0809 (Given - Provider: Kristina Dawn RN)1145 (Given - Provider: Kristina Dawn RN)1630 (Given - Provider: Kristina Dawn RN)205 (Given - Provider: Yo Freitas RN) 0906 (Given - Provider: Ana Laura Salomon RN)1200 (Canceled Entry - Provider: Batch Job User Admin - Comment: Automatically canceled at discontinue of medication order) morphine (MS CONTIN) CR tablet 15 mg 15 mg, oral, DAILY WITH BREAKFAST, First dose (after last modification) on Sun01/17/21 at 0800, Until Discontinued, Routine 0732 (Given [...] refused) 0807 (Given - Provider: Kristina Dawn RN)205 (Given - Provider: Yo Freitas RN) 0910 [...] Patient/family refused) 0809 (Given - Provider: Kristina Dawn, RN)2053 (Given - Provider: Yo Freitas RN) 09 (Given - Provider: Ana Laura Salomon, JARVIS) sodium chloride 0.9 % (flush) flush 10 mL 10 mL, intercatheter, WEEKLY, First dose on Sun12/31/20 at 1500, Until Discontinued, Routine TAMSulosin (FLOMAX) capsule 0.4 mg 0.4 mg, oral, DAILY, First dose on Sun01/08/21 at 1215, Until Discontinued, Routine 0818 (Given - Provider: Kristina Dawn RN) 0810 (Given - Provider: Kristina Dawn RN) 09 (Given - Provider: Ana Laura Salomon RN) [...] Dawn RN) 4 (Given - Provider: Yo Freitas, JARVIS) 0621 (Given - Provider: Yo Freitas RN) [...] Count Last Ordered Date First Ordered Date iohexoL (OMNIPAQUE 350) solution 1-150 mL 1 01/20/2021 bisacodyL (DULCOLAX) suppository 10 mg 1 ibuprofen (MOTRIN) tablet 400 mg 1 01/18/20 insulin aspart U-100 (NOVOLO G FLEXPEN) injection 6 Units 1 01/17/2021 insulin glargine (LANTUS EMELY OSTAR/SEMGLEE) injection pen 30 Units 1 01/17/2021 ceFAZolin in dextrose (iso-o s) piggyback 2 g/100 mL 4 01/16/2021 12/24/2020 insulin aspart U-100 (NOVOLO G FLEXPEN) injection 8 Units 1 01/16/2021 insulin glargine (LANTUS EMELY OSTAR/SEMGLEE) injection pen 35 Units 1 01/16/2021 morphine (MS CONTIN) CR tablet 15 mg 2 01/0301/06/2021 morphine (MS CONTIN) CR tablet 30 mg 2 01/0301/06/2021 insulin aspart U-100 (NOVOLO G FLEXPEN) injection 10 Units 6 01/15/2021 12/23/2020 insulin glargine (LANTUS EMELY OSTAR/SEMGLEE) injection pen 40 Units 2 01/15/2021 12/23/2020 polyethylene glycol 3350 (KS RALAX) packet 34 g 1 01/14/2021 HYDROmorphone (PF) (DILAUDID ) 0.5 mg/0.5 mL syringe 0.6 mg 3 01/13/2021 01/12/2021 insulin aspart U-100 (NOVOLO G FLEXPEN) injection 13 Units 1 01/13/2021 insulin glargine (LANTUS EMELY OSTAR/SEMGLEE) injection pen 48 Units 1 01/13/2021 morphine (MS IR) tablet 15 mg 3 01/11/2021 12/23/2020 polyethylene glycol 3350 (KS RALAX) packet 17 g 2 01/09/2021 01/03/2021 senna (SENOKOT) tablet 2 Tablet 2 01/03/2021 TAMSulosin (FLOMAX) capsule 0.4 mg 1 2020 insulin glargine (LANTUS EMELY OSTAR/SEMGLEE) injection pen 60 Units 1 01/07/2021 gabapentin (NEURONTIN) capsule 300 mg 1 05/2020 insulin glargine (LANTUS EMELY OSTAR/SEMGLEE) injection pen 55 Units 1 01/05/2021 Dimethicone-Zinc Oxide 20-25 % spray,non-aerosol 1 01/04/2021 HYDROmorphone (DILAUDID) tablet 2-4 mg 4 12/29/2020 gabapentin (NEURONTIN) capsule 200 mg 2 03/202012/31/2020 HYDROmorphone (PF) (DILAUDID ) 0.5 mg/0.5 mL syringe 0.5 mg 2 01/03/2021 12/29/2020 insulin aspart U-100 (NOVOLO G FLEXPEN) injection 18 Units 1 01/03/2021 insulin glargine (LANTUS EMELY OSTAR/SEMGLEE) injection pen 50 Units 1 01/03/2021 zinc oxide (DESITIN) 40 % paste 1 insulin aspart U-100 (NOVOLO G FLEXPEN) injection 15 Units 1 01/02/2021 insulin aspart U-100 (NOVOLO G FLEXPEN) injection 12 Units 1 01/01/2021 alteplase (CATHFLO ACTIVASE) injection 2 mg 1 12/31/2020 apixaban (ELIQUIS) tablet 5 mg 2 12/31/2020 12/23/2020 gabapentin (NEURONTIN) capsule 100 mg 2 lidocaine (PF) 10 mg/mL (1 % ) injection 5 mg 1 12/31/2020 sodium chloride 0.9 % (flush) flush 10 mL 2 12/31/2020 sodium chloride 0.9 % (flush) flush 20 mL 1 12/31/2020 HYDROmorphone (DILAUDID) tablet 2 mg 3 12/0412/25/2020 insulin aspart U-100 (NOVOLO G FLEXPEN) injection 4 12/30/2020 12/23/2020 atropine 0.1 mg/mL syringe 0.5 mg 1 021 diphenhydrAMINE (BENADRYL) i njection 12.5 mg 1 12/29/2020 enoxaparin (LOVENOX) injection 120 mg 3 12/27/2020 fentaNYL citrate (PF) injection 25-50 mcg 1 12/29/2020 gadoterate meglumine solution 1-30 mL 1 HYDROmorphone (PF) (DILAUDID ) 0.5 mg/0.5 mL syringe 0.25-0.5 mg 1 12/29/2020 HYDROmorphone (PF) (DILAUDID ) 0.5 mg/0.5 mL syringe 0.4 mg 1 12/29/2020 ibuprofen (MOTRIN) tablet 600 mg 1 12/30/19 ketOROLAC (TORADOL) injection 15 mg 2 12/2912/22/2020 lactated ringers (LR) infusion 1 12/29/2020 morphine injection 2 mg 3 12/29/202012/04 naloxone (NARCAN) injection 0.2 mg 1 2020 ondansetron (PF) (ZOFRAN) injection 4 mg 1 12/29/2020 ceFAZolin (ANCEF) syringe 2 g 1 12/28/2020 lidocaine (PF) 10 mg/mL (1 % ) injection 2 mg 2 12/28/2020 12/23/2020 diclofenac sodium gel 4 g 1 12/25/2020 potassium chloride in water infusion 20 mEq 1 12/25/2020 ascorbic acid (vitamin C) (V ITAMIN C) tablet 500 mg 1 12/24/2020 cholecalciferol (Vitamin D3) tablet 2,000 Units 1 12/24/2020 lactated ringers BOLUS 500 mL 2 12/24/2020 12/23/2020 LORazepam (ATIVAN) tablet 1 mg 1 12/24/2020 potassium chloride (KLOR-CON ) packet 20 mEq 1 12/24/2020 acetaminophen (TYLENOL) tablet 1,000 mg 2 1 atorvastatin (LIPITOR) tablet 20 mg 1 12/23 blood thinner patient educat ion booklet 1 Each 1 12/23/2020 cefepime (MAXIPIME) 2,000 mg in sodium chloride (NS MBP) 50 mL IVPB 2 12/23/2020 12/22/2020 cefTRIAXone (ROCEPHIN) 2,000 mg in sodium chloride (NS MBP) 50 mL IVPB 2 12/23/2020 dextrose 50 % solution 12.5 g 1 12/23/2020 glucagon injection 1 mg 1 12/23/2020 insulin glargine (LANTUS EMELY OSTAR/SEMGLEE) injection pen 45 Units 2 12/23/2020 levothyroxine (SYNTHROID) tablet 112 mcg 1 12/23/2020 lidocaine 5 % (LIDODERM) patch 1 Patch 1 LORazepam (ATIVAN) injection 1 mg 1 021 methocarbamoL (ROBAXIN) tablet 750 mg 1 metronidazole (FLAGYL) infusion 500 mg 2 12/22/2020 morphine injection 4 mg 1 12/23/2020 potassium chloride (KLOR-CON ) packet 40 mEq 1 12/23/2020 traMADol (ULTRAM) tablet 50 mg 1 12/23/2020 vancomycin (VANCOCIN) 1,750 mg in dextrose 5% (D5W) 500 mL IVPB 1 12/23/2020 lactated ringers BOLUS 1,000 mL 2 vancomycin (VANCOCIN) 2,250 mg in dextrose 5% (D5W) 500 mL IVPB 1 12/22/2020 Diet Count Last Ordered Date First Orde [...] documented as of this encounter Care Teams Glost Placer Relationship Specialty Start Date End Date Jason Batres MD [address] [place] [id number] PCP - General 07/27/11 12/31/23 documented as of this encounter
--- OUTSIDE RECORDS SUMMARY | 2024-02-28 16:47 | XMS_ITS | Encounter Summary ---
Author Organization [facility] Address [address] [place] [address] Care Team Providers Care Sock Lining Examiner Name Role Phone Jason Batres MD Primary Care Provi margarita Reason for Visit * Reason Onset Date Comments Appointment Related 08/25/2020 Encounter Details Date Type Department Care Team (Late st Contact Info) Description 08/25/2020 Telephone [facility] H[facility]ology [facility] Oncology - [facility] [address] [place], [place] [id number] Hem/Onc, [place] Appointment Related Social History Tobacco Use Types [...] have Coronavirus / COVID-19? No / Unsure 08/12/2020 10:58 EDT documented as of this encounter Functional Status * Are you deaf or do you have serious difficulty hearing? Answer Date of Assessment Author No 10/04/2019 12:00 EDT Anna Sevilla RN * Are you blind or do you have serious difficulty seeing, even when wearing glasses? Answer Date of Assessment Author No 10/04/2019 12:00 FREDERICT Anna Sevilla RN * Do you have serious difficulty walking or climbing stairs? (5 years old or older) Answer Date of Assessment Author Yes 10/04/2019 12:00 Anna Stephens RN * Do you have difficulty dressing or bathing? (5 years old or older) Answer Date of Assessment Author Yes 10/04/2019 12:00 Anna Stephens RN * Because of a physical, mental, or emotional condition, do you have difficulty doing errands alone such as visiting a doctor's office or shopping? (15 years old or older) Answer Date of Assessment Author Yes 10/04/2019 12:00 Anna Stephens RN documented as of this encounter Mental Status * Because of a physical, mental, or emotional condition, do you have serious difficulty concentrating, remembering, or making decisions? (5 years old or older) Answer Entry Date Author No 10/04/2019 12:00 Anna Stephens RN documented in this encounter Miscellaneous Notes * Telephone Encounter - Nguyen Rendon - 08/25/2020 1635 EDT I have been unable to reach this patient by phone. A letter is being sent. documented in this encounter Plan of Treatment Not on file documented as of this encounter Visit Diagnoses Not on filedocumented in this encounter Care Teams Sock Lining Examiner Relationship Specialty Start Date End Date Jason Batres MD [address] [place] [id number] PCP - General 07/27/11 12/31/23 documented as of this encounter
--- OUTSIDE RECORDS SUMMARY | 2024-02-28 16:47 | XMS_ITS | Encounter Summary ---
Author Organization [facility] Address [address] [place] [address] Care Team Providers Care Reinforcing Metal Worker Name Role Phone Jason Batres MD Primary Care Provi margarita Reason for Visit * Reason Onset Date Comments Medications Refill 11/11/2020 Encounter Details Date Type Department Care Team (Late st Contact Info) Description 11/11/2020 Refill Jason Batres MD, [facility] [address] [place], [place] [phone] Jason Batres MD [address] [place] [phone] Medications Refill Social History Tobacco Use [...] Date of Assessment Author No 10/04/2019 12:00 EDAnna Smith RN * Are you blind or do you have serious difficulty seeing, even when wearing glasses? Answer Date of Assessment Author No 10/04/2019 12:00 Anna Stephens RN * Do you have serious difficulty walking or climbing stairs? (5 years old or older) Answer Date of Assessment Author Yes 10/04/2019 12:00 Anna Stephens RN * Do you have difficulty dressing or bathing? (5 years old or older) Answer Date of Assessment Author Yes 10/04/2019 12:00 EDAnna Smith RN * Because of a physical, mental, [...] Anna Stephens RN documented in this encounter Ordered Prescriptions Prescription Sig Dispense Quantity Refills Last Filled Start Date End Date traMADol (ULTRAM) 50 mg tablet Take 1 Tablet by mouth 2 times daily as needed for Pain. Daily Max: 100 mg 45 Tablet 11/11/2020 11/17/2020 documented in this encounter Miscellaneous Notes * Telephone Encounter - Keyla Rhodes - 11/11/2020 1154 EDT Pt has apt with [facility] on 11/17 but is out of med so would like refill. documented in this encounter Plan of Treatment Not on file documented as of this encounter Visit Diagnoses Not on filedocumented in this encounter Discontinued Medications Medication Sig Discontinue Reason Start Date End Da te traMADol (ULTRAM) 50 mg tablet Take 1 Tablet by mouth 2 times daily as needed for Pain. Daily Max: 100 mg Reorder 10/20/2020 11/11/2020 documented as of this encounter Care Teams Reinforcing Metal Worker Relationship Specialty Start Date End Date Jason Batres MD [address] [place] [address] PCP - General 07/27/11 12/31/23 documented as of this encounter
--- OUTSIDE RECORDS SUMMARY | 2024-02-28 16:47 | XMS_ITS | Encounter Summary ---
Author Organization [facility] Address [address] [place] [address] Care Team Providers Care General Claims Agent Name Role Phone Jason Batres MD Primary Care Provi margarita Reason for Visit * Reason Comments Foot Pain Encounter Details Date Type Department Care Team (Late st Contact Info) Description 11/17/2020 10:30 EDT Office Visit Jason Batres MD, PC [address] [place], [place] [address] Herman Horton, [address] [phone] Anticipatory grief (Primary Dx); Emotional lability; Chronic pain in right foot; Acute deep vein thrombosis (DVT) of left lower extremity, unspecified vein (HCC-CMS) Social History Tobacco Use Types Packs/Day Years [...] Sign Reading Time Taken Comments Blood Pressure 122/72 11/17/2020 1041 EDT Pulse 84 11/17/2020 1041 EDT Temperature 37 ??C (98.6 ??F) 11/17/2020 1041 EDT Respiratory Rate 20 11/17/2020 1041 EDT Oxygen Saturation 98% 11/17/2020 1041 EDT Inhaled Oxygen Concentration - - Weight [...] 10/04/2019 12:00 EDT Anna Sevilla RN * Do you have serious difficulty walking or climbing stairs? (5 years old or older) Answer Date of Assessment Author Yes 10/04/2019 12:00 EDAnna Smith RN * Do you have difficulty dressing or bathing? (5 years old or older) Answer Date of Assessment Author Yes 10/04/2019 12:00 EDT Anna Sevilla RN * Because of a physical, mental, or emotional condition, do you have difficulty doing errands alone such as visiting a doctor's office or shopping? (15 years old or older) Answer Date of Assessment Author Yes 10/04/2019 12:00 FREDERICT Anna Sevilla RN documented as of this encounter Mental [...] Pain. Daily Max: 100 mg 45 Tablet 11/17/2020 2020 documented in this encounter Progress Notes * Herman Horton DNP - 11/17/2020 1030 EDT Subjective: Patient ID: Jeff Scott is an 59 y.o. male. Chief Complaint Patient presents with ??? Foot Pain HPI Jeff presents to the clinic today to follow-up on his chronic right foot pain. He saw Dr. Gonzales yesterday who told him that the ulceration on his foot is looking better, but that she wants him to continue to take it easy and avoid pressure on the foot as much as possible. He is limiting his cycling and not walking as much but has a hard time being stagnant. Jeff says the pain in his foot continues to be an issue. The last time we spoke I had cut his tramadol down from 60 a month to 45. He says that this was okay however he worries about cutting it downany further for now. He generally takes one in the morning and another 1/2 to whole tab again in the evening if the pain is acting up and he needs it. Unfortunately Jeff says that this past weekend he accidentally knocked the bottle over and dumped most of tramadol in the sink. He was able to salvage some of the medication but asks for an early refill. Jeff says he continues to deal with his impending divorce. This causes him a lot of emotional stress and he sometimes just breaks down and cries for no real reason. We talked about whether a therapist would be helpful and he thinks it would. His son is getting soon and he is excited for this and getting to wear the new suit he just bought. He saw hematology recently about his DVT. He was instructed to continue the Eliquis until February when he will have a repeat US and decide whether or not he might need to remain on this or undergo further work-up. Patient Active Problem List Diagnosis ??? Late effect of intracranial injury (HCC-CMS) ??? Craniopharyngioma (HCC-CMS) ??? Memory loss due to medical condition ??? Hypothyroidism ??? Osteoarthritis of left hip ??? Acute osteomyelitis of phalanx of foot (HCC-CMS) ??? Type 2 diabetes mellitus with diabetic polyneuropathy, with long-term current use of insulin (HCC-CMS) ??? Hyperplastic polyp of descending colon ??? Diabetic foot infection (HCC-CMS) ??? Acute osteomyelitis of right ankle or foot (HCC-CMS) Past Medical History: Diagnosis Date ??? Arthritis [...] 2 times daily. 60 Tablet 5 ??? atorvastatin (LIPITOR) 20 mg tablet Take [...] needed (glucose monitoring). 1 Each 0 ??? honey (MEDIHONEY, HONEY,) 80 % gel Apply 1 application topically three times a week. 1 Tube 2 ??? insulin glargine (LANTUS SOLOSTAR) 100 unit/mL (3 mL) injection pen Inject 45 Units into the skin at bedtime. 2 Box 2 ??? insulin lispro (HUMALOG KWIKPEN INSULIN) 100 unit/mL injectable pen Inject 10 Units into the skin 3 times daily with meals. 2 Box 3 ??? lancets Test BID. 100 Each 1 ??? levothyroxine (SYNTHROID) 112 mcg tablet Take 1 Tab by mouth daily. 90 Tab 3 ??? metFORMIN (GLUCOPHAGE) 500 mg tablet Take 1 Tab by mouth 2 times daily. 180 Tab 3 ??? SITagliptin (JANUVIA) 100 mg tablet Take 1 Tab by mouth daily. 90 Tab 3 ??? sodium phosphate (FLEET ENEMA) 19-7 gram/[address] 1 Enema rectally daily as needed. No current facility-administered medications on file prior to visit. No Known Allergies Review of Systems Constitutional: Negative. Musculoskeletal: Positive for joint pain (right foot). Psychiatric/Behavioral: Positive for emotional lability, sadness - See HPI Objective: BP 122/72 Pulse 84 Temp 37 ??C (98.6 ??F) Resp 20 SpO2 98% Physical Exam Constitutional: General: He is not in acute distress. Appearance: He is well-developed and well-nourished. He is not diaphoretic. Musculoskeletal: General: Normal range of motion. Skin: General: Skin is warm and dry. Findings: No erythema or rash. Neurological: Mental Status: He is alert and oriented to person, place, and time. Psychiatric: Mood and Affect: Mood and affect normal. Behavior: Behavior normal. Thought Content: Thought content normal. Judgment: Judgment normal. Assessment: Right foot pain Emotional lability, grief DVT left leg Plan: Jeff was seen today for foot pain. Diagnoses and all orders for this visit: Anticipatory grief - AMB CONS/FOLLOW UP COMMUNITY HEALTH TEAM; Future Emotional lability - AMB CONS/FOLLOW UP COMMUNITY HEALTH TEAM; Future Chronic pain in right foot Acute deep vein thrombosis (DVT) of left lower extremity, unspecified vein (HCC-CMS) Other orders - traMADol (ULTRAM) 50 mg tablet; Take 1 Tablet by mouth 2 times daily as needed for Pain. Daily Max: 100 mg -Agreed to continue tramadol 45 pills per month for now -Will agree to a one time early refill, sent this in today -Will continue to try and taper down off of the tramadol -Hopefully with the decreased activity to allow his right foot ulcer to heal, he will also notice an improvement in the foot pain and could consider tapering down further at next visit -WIll refer to [facility] to help Jeff find a therapist -Continue Eliquis as prescribed, heme f/u in February -F/u here in 1-2 months or sooner prn Herman Horton DNP documented in this encounter Plan of Treatment Not on file documented as of this encounter Visit Diagnoses Diagnosis Anticipatory grief- Primary Emotional lability Chronic pain in right foot Pain in limb Acute deep vein thrombosis (DVT) of left lower extremity, unspecified vein (HCC-CMS) documented in this encounter Discontinued Medications Medication Sig Discontinue Reason Start Date End Da te traMADol (ULTRAM) 50 mg tablet Take 1 Tablet by mouth 2 times daily as needed for Pain. Daily Max: 100 mg Reorder 11/11/2020 11/17/2020 documented as of this encounter Care Teams General Claims Agent Relationship Specialty Start Date End Date Jason Batres MD [address] [place] [address] PCP - General 07/27/11 12/31/23 documented as of this encounter
--- OUTSIDE RECORDS SUMMARY | 2024-02-28 16:47 | XMS_ITS | Encounter Summary ---
Author Organization [facility] Address [address] [place] [address] Care Team Providers Care Plug Cutter Name Role Phone Jason Batres MD Primary Care Provi margarita Encounter Details Date Type Department Care Team (Late st Contact Info) Description 06/16/2020 14:10 EDT Immunization [facility] [address] [place] [address] Social History Tobacco Use Types Packs/Day Years [...] Anna Stephens RN documented in this encounter Plan of Treatment Not on file documented as of this encounter Visit Diagnoses Not on filedocumented in this encounter Orders Immunization/Injection Count Last Ordered Date First Ordered Date COVID-19 MRNA VACCINE (PFIZE R COVID-19) PF 0.3 ML IM (16 YRS+) 1 06/16/2020 documented in this encounter Care Teams Plug Cutter Relationship Specialty Start Date End Date Jason Batres MD [address] [place] [address] PCP - General 07/27/11 12/31/23 documented as of this encounter
--- OUTSIDE RECORDS SUMMARY | 2024-02-28 16:47 | XMS_ITS | Encounter Summary ---
Author Organization [facility] Address [address] [place] [address] Care Team Providers Care Team Facilitator Name Role Phone Jason Batres MD Primary Care Provi margarita Encounter Details Date Type Department Care Team (Latest Contact Info) Description 08/12/2020 Travel Social History Tobacco Use Types Packs/Day [...] Assessment Author No 10/04/2019 12:00 EDT Anna Sevilla, RN * Are you blind or do [...] on filedocumented in this encounter Care Teams Team Facilitator Relationship Specialty Start Date End Date Jason Batres MD [address] [place] [id number] PCP - General 07/27/11 12/31/23 documented as of this encounter
--- OUTSIDE RECORDS SUMMARY | 2024-02-28 16:47 | XMS_ITS | Encounter Summary ---
Author Organization [facility] Address [address] [place] [address] Care Team Providers Care Administrative Services Manager Name Role Phone Jason Batres MD Primary Care Provi margarita Reason for Referral * Vascular Lab (Routine) - Closed Specialty Diagnoses / Procedures [facility] Referred To Contact Diagnoses Leg DVT (deep venous thromboembolism), acute, left ([facility]) Procedures US LOWER VENOUS DUPLEX Millie Landeros NP Phone: tel: fax: Referral ID Status Reason Start Date Expiration Date Visits Re quested Visits Authorized [id number] Closed 11/04/2020 1 1 Reason for Visit * Reason Comments New Patient Visit * Consult (Routine) - Order Cancelled Specialty Diagnoses / Procedures Referred By Contact Referred To Contact Hematology and Oncology Diagnoses Acute deep vein thrombosis (DVT) of proximal vein of left lower extremity ([facility]) Jason Batres MD Phone: tel: fax: [facility] Hematology & Oncology - [address] [place] [address] [place] [address] Phone: tel: fax: Referral ID Status Reason Start Date Expiration Date Visits Requested Visits Authorized [id number] Order Cancelled Specialty Services Required 08/19/2020 1 1 Encounter Details Date Type Department Care Team (Late st Contact Info) Description 11/04/2020 13:00 EDT Office Visit [facility] Hematology & Oncology - [address] [id number] Milile Landeros NP [address] [facility], [address] [place] [address] Leg DVT (deep venous thromboembolism), acute, left (HCC-CMS) (Primary Dx) Social History Tobacco Use [...] Sign Reading Time Taken Comments Blood Pressure 132/65 11/04/2020 1327 EDT Pulse 99 11/04/2020 1327 EDT Temperature 36 ??C (96.8 ??F) 11/04/2020 1327 EDT Respiratory Rate 18 11/04/2020 1327 EDT Oxygen Saturation 98% 11/04/2020 1327 EDT Inhaled Oxygen Concentration - - Weight 115.8 kg (255 lb 6.4 oz) 11/04/2020 1327 EDT Height 186.8 cm (6' 1.54) 11/04/2020 1327 EDT Body Mass Index 33.2 11/04/2020 1327 EDT documented in this encounter Functional Status * Are you deaf or do you have serious difficulty hearing? Answer Date of Assessment Author No 10/04/2019 12:00 EDT Roel, F lint, RN * Are you blind or do [...] Refills Last Filled Start Date End Date apixaban (ELIQUIS) 5 mg tablet Take 1 Tablet by mouth 2 times daily. 60 Tablet 5 11/04/2020 11/18/2021 documented in this encounter Progress Notes * Millie Landeros, [employer] - 11/04/2020 1300 EDT Thrombosis & Hemostasis Program (THP) Consult H&P Date of Service: 11/04/2020 PCP: Jason Batres Referring MD: Jason Batres Reason for Visit: Consult for unprovoked, extensive LLE DVT HPI: Jeff Patel is a 59-year-old man referred by PCP Dr. Terry Batres for further evaluation of unprovoked, extensive left lower extremity DVT. Mr. Patel has a past medical history of resected brain tumor, uncontrolled DM2 s/p right foot amputation, diabetic neuropathy, hypothyroidism and osteoarthritis who experienced several days of worseninng left leg edema and severe pain in August 2020. He was seen in his primary care office where evalua tion was highly suggestive of DVT. Ultrasound was recommended. Due to lack of transportation, he was taken via ambulance to [facility] ED on 08/12/20. In the ED, D- dimer returned elevated to 1834. PT PTT were normal at baseline with a creatinine of 0.60. Patient was initiated on anticoagulation with apixaban with a loading dose of 10 mg twice daily for 1 week with reduction to 5 mg twice daily thereafter which he continues on to date. He denies ever experiencing any sudden onset shortness of breath, chest pain, fever or lightheadedness. He has no prior personal nor family history of venous thromboembolism. He denies any recent trauma, period of prolonged immobility, surgery or hospitalization. Heis a non-smoker. He is considered obese with a BMI of 33 and reports he spends a lot of time sitting. He would like answers as to why he developed this DVT. Mr. Scott denies bleeding abnormalities since initiation of anticoagulation. His swelling has improved and pain has resolved with the exception of slight pain if he moves suddenly. He has severe lefthip pain and tells me he is in need of a hip replacement. ROS: Constitutional: Negative for fever, chills, weight loss, dizziness. + fatigue. HENT: Negative for nosebleeds and congestion. Eyes: Negative for blurred vision. Respiratory: Negative for cough and shortness of breath. Cardiovascular: Negative for chest pain, palpitations. Genitourinary: Negative for urinary hesitancy, urgency, incontinence, dysuria. Gastrointestinal: Negative for heartburn, nausea, vomiting, constipation and diarrhea. Musculoskeletal: Negative for myalgias. + left hip pain, intermittent left leg pain. + left leg swelling. Neurological: +weakness, balance issues. Negative for numbness and tingling. Endo/Heme/Allergies: Does not bruise/bleed easily. Integument: Negative for lesions, rashes, skin breakdown, pruritis. Psychological: Negative for mood disturbance. Past Medical History: Patient has a past medical history of Arthritis, Back pain, Diabetes mellitus ([facility]), Hypothyroidism, and Wears glasses. Past Surgical History: Patient has a past surgical history that includes brain surgery; Eye surgery; Foot surgery (Right, 03/23/2016); and Foot surgery (Right, 10/05/2019). Family History: Patient's Family History Problem Relation Age of Onset ??? Stroke Mother 71 ??? Cancer Father 65 lung cancer ??? Colon Cancer Neg Hx Social History: Patient reports that he has never smoked. He has quit using smokeless tobacco. His smokeless tobacco use included chew. He reports that he does not drink alcohol and does not use drugs. Medications: Medihoney Topical Gel, SITagliptin, acetaminophen, apixaban, atorvastatin, bisacodyL, blood glucose, blood glucose meter, cholecalciferol (Vitamin D3), insulin glargine, insulin lispro, lancets, levothyroxine, metFORMIN, sodium phosphate, and traMADol Allergies: Patient has No Known Allergies. Objective: BP 132/65 Pulse 99 Temp 36 ??C (96.8 ??F) (Temporal) Resp 18 Ht 186.8 cm (73.54) Wt (!) 115.8 kg (255 lb 6.4 oz) SpO2 98% BMI 33.20 kg/m?? Estimated body mass index is 33.2 kg/m?? as calculated from the following: Height as of this encounter: 186.8 cm (73.54). Weight as of this encounter: 115.8 kg (255 lb 6.4 oz). Physical Exam: General: No acute distress, alert and oriented times three; conversing appropriately Extremities: 1+ pitting to lower left leg, ankle to mid tibia. Slight erythema to left lower leg compared to right. Scattered scars to bilateral LEs. No palpable cords or varicosities. No pain on calf compression. Labs: Basic Metabolic Panel Lab Results Component Value Date NA 135 (L) 08/12/2020 K 4.6 08/12/2020 CL 97 08/12/2020 CO2 25 08/12/2020 BUN 14 08/12/2020 CREATININE 0.60 (L) 08/12/2020 CALCGFR 111 08/12/2020 CALCIUM 9.5 08/12/2020 CALCCA 9.4 08/12/2020 MG 2.0 10/04/2019 PHOS 3.8 10/04/2019 Gastrointestinal Lab Results Component Value Date ALKPHOS 89 05/20/2020 AST 30 05/20/2020 ALT 27 05/20/2020 CONJBILI 0.0 01/17/2018 UNCONJBILI 0.2 01/17/2018 TBIL 0.7 05/20/2020 TP 8.0 05/20/2020 LABALBU 4.8 05/20/2020 Complete Blood Count Lab Results Component Value Date ABO A 10/08/2019 WBC 7.95 08/12/2020 RBC 4.49 08/12/2020 HGB 14.0 08/12/2020 HCT 38.9 (L) 08/12/2020 MCV 87 08/12/2020 MCH 31.2 08/12/2020 MCHC 36.0 08/12/2020 PLT 268 08/12/2020 MPV 10.0 08/12/2020 RDWCV 12.3 08/12/2020 Differential (Absolute) Lab Results Component Value Date DIFFTYPE Auto 08/12/2020 NEUTROABS 5.69 08/12/2020 LYMPHSABS 1.50 08/12/2020 MONOSABS 0.55 08/12/2020 EOSABS 0.16 08/12/2020 BASOSABS 0.05 03/09/2016 Anemia Lab Results Component Value Date FERRITIN 127 02/17/2016 Coagulation Lab Results Component Value Date PROTIME 12.2 08/12/2020 INR 1.1 08/12/2020 PTT 28 10/04/2019 DDIMER 1,834 (H) 08/12/2020 Imagin08/12/20 LLE ultrasound: Deep veins above the knee: [...] vein. Other: No evidence of subcutaneous edema. Assessment: 59-year-old man with unprovoked, extensive left lower extremity DVT from the external iliac vein through the deep veins of the calf. He is tolerating apixaban with significant improvementin presenting symptoms. Today, I reviewed the recommendation for 6 months of uninterrupted anticoagulation followed by potential thrombophilia testing. We also discussed his risk factors which include obesity with a BMI of 33, sedentary lifestyle and uncontrolled diabetes. His most recent hemoglobin A1c in May 2020 was 14.8. He has already undergone right foot amputation and has had multiple nonhealing ulcerations due to diabetic neuropathy. We discussed underlying inflammation as a dedicated driver for thrombosis and the importance of getting his blood sugar under better control. I anticipate patient will require long-term anticoagulation given unprovoked nature and extent of DVT. In terms of cancer screenings, he underwent colonoscopy in 2018 with recommendation for repeat in 5to 10 years. I do not see a PSA in our system however this may be recorded elsewhere. Finally, CBC does not show evidence of myeloproliferative state. He has no concerning symptoms such as unexplained weight loss or gain, recurrent fevers, drenching night abdominal pain or bloating or change in bowel or bladder habits to suggest underlying malignancy as a dedicated driver for his thrombosis. Plan: 1. Anticoagulation: Continue apixaban 5 mg p.o. twice daily through follow-up in February (to complete 6 months of therapeutic anticoagulation). 2. Repeat left lower extremity ultrasound in February to assess for clot resolution and establish new baseline. 3. Check patient is up-to-date on age-appropriate cancer screenings to r/o malignancy as a dedicated driver for thrombosis. 4. We will discuss thrombophilia testing at his follow-up visit. This will require a 2-week AC hold. 5. Reviewed signs and symptoms of PE and increased risk of bleeding on anticoagulation. He is awarethat any head trauma requires ED evaluation. 6. Follow-up mid February per above I appreciate the opportunity to participate in this patient's care. Please let me know if you have any questions or concerns. I can be reached at [phone]. Thank you. Millie Landeros NP *I spent a total of 45 minutes on the date of this encounter as indicated in the above progress note. cc: Jason Batres documented in this encounter Plan of Treatment Not on file documented as of this encounter Results * US LOWER VENOUS [...] Medical History Anticoagulation therapy. us Millie Landeros ARNP IMG US VASCULAR ORDERABLES Final Result documented in this encounter Visit Diagnoses Diagnosis Leg DVT (deep venous thromboembolism), acute, left (HCC-CMS)- Primary Leg DVT (deep venous thromboembolism), acute, left (HCC-CMS) documented in this encounter Discontinued Medications Medication Sig Discontinue Reason Start Date End Da te apixaban (ELIQUIS) 5 mg tablet Take 1 Tablet by mouth 2 times daily. Reorder 09/21/2020 11/04/2020 diphenhydrAMINE (BENADRYL) 50 mg capsuleIndications:Acute osteomyelitis of right ankle or foot (HCC-CMS) Take 1 Cap by mouth as needed for up to 1 dose (hives). Therapy completed 10/15/2019 11/04/2020 magnesium hydroxide (MILK OF MAGNESIA) 400 mg/5 mL suspension Take 30 mL by mouth daily as needed. Therapy completed 11/04/2020 documented as of this encounter Care Teams Administrative Services Manager Relationship Specialty Start Date End Date Jason Batres MD [address] [place] [id number] PCP - General 07/27/11 12/31/23 documented as of this encounter
--- OUTSIDE RECORDS SUMMARY | 2024-02-28 16:47 | XMS_ITS | Encounter Summary ---
Author Organization [facility] Address [address] [place] [address] Care Team Providers Care Rollway Man Name Role Phone Jason Batres MD Primary Care Provi margarita Reason for Visit * Reason Onset Date Comments Appointment Related 08/26/2020 Encounter Details Date Type Department Care Team (Late st Contact Info) Description 08/26/2020 Telephone [facility] Hematology & Oncology - [address] [phone] Millie Landeros NP [address] [place] [address] [address] [place] [address] Appointment Related Social History Tobacco [...] Yes 10/04/2019 12:00 FREDERICT Anna Sevilla RN * Do you have difficulty dressing or bathing? (5 years old or older) Answer Date of Assessment Author Yes 10/04/2019 12:00 FREDERICT Anna Sevilla RN * Because of a [...] Answer Entry Date Author No 10/04/2019 12:00 FREDERICT Anna Sevilla RN documented in this encounter Miscellaneous Notes * Telephone Encounter - Nguyen Rendon - 08/26/2020 0936 EDT Contacted patient and confirmed date and time of upcoming appointment. documented in this encounter Plan of Treatment Not on file documented as of this encounter Visit Diagnoses Not on filedocumented in this encounter Care Teams Rollway Man Relationship Specialty Start Date End Date Jason Batres MD [address] [place] [id number] PCP - General 07/27/11 12/31/23 documented as of this encounter
--- OUTSIDE RECORDS SUMMARY | 2024-02-28 16:47 | XMS_ITS | Encounter Summary ---
Author Organization [facility] Address [address] [place] [address] Care Team Providers Care Business Development Agent Name Role Phone Jason Batres MD Primary Care Provi margarita Reason for Visit * Reason Comments MEDICATION CHECK 3 month Encounter Details Date Type Department Care Team (Late st Contact Info) Description 08/19/2020 9:30 EDT Office Visit Jason Batres [facility], [facility] [address], [place] [phone] Jason Batres MD [address] [place] [address] Acute deep vein thrombosis (DVT) of proximal vein of left lower extremity (HCC-CMS) (Primary Dx) Social History [...] 10:58 EDT documented as of this encounter Last Filed Vital Signs Vital Sign Reading Time Taken Comments Blood Pressure 118/80 08/19/2020923 EDT Pulse 103 08/19/2020923 EDT Temperature 36.8 ??C (98.3 ??F) 08/19/2020 09 EDT Respiratory Rate - - Oxygen Saturation 96% 08/19/2020 09 EDT Inhaled Oxygen Concentration - - Weight 113.4 kg (250 lb) 08/19/2020 09 EDT Height - - Body Mass Index 32.1 08/12/2020 1057 EDT documented in this encounter Functional Status * Are you deaf or do you have serious difficulty hearing? Answer Date of Assessment Author No 10/04/2019 12:00 Anna Stephens RN * Are you blind or do [...] needed for Pain. Daily Max: 100 mg 60 Tablet 08/19/2020 09/21/2020 documented in this encounter Progress Notes * Jason Batres MD - 08/19/2020 3265 EDT Subjective: Patient ID: Jeff Scott is an 59 y.o. male. Chief Complaint Patient presents with ??? MEDICATION CHECK 3 month HPI Jeff was here one week ago for a visit and was having severe left leg pain. It was bothering him for a week before that and he says he thought it would get better but it did not. When he was seen here- there was concern for a DVT and given the extreme pain he was referred to the ED so he could getevaluated immediately. He had an US of the LE which did confirm a left leg DVT. He was started on Eliquis and says he is taking this He is using 10 mg BID and will change to 5 mg tomorrow- BID. He takes tylenol as well- 1000 mg BID. Prior to this- he does sit in his home a lot- but also tries to get out into the yard. So he is sedentary but had no prolonged periods of immobility. Jeff has a throbbing as soon as he does not elevate his foot. It happens as soon as he starts walking on it. A hot tub helps but again when he sands it gets worse again. His last A1C was 12/25/19 and was 11.1. He tells me he has been taking his insulin. Before the DVT, he still was having a throbbing in the right foot. He was using the tramadol BID. It was getting better but there was still pain. He feels he needs something now for the left leg pain, but the right has improved. He showed me his new shoe that cost him $700 but that has been helpinghim and has in insert in it. He is still seeing podiatry as well. Social He is in the process of getting a divorce. He is looking into assisted living. One of his sons is going to help with his finances. Current Outpatient Medications on File Prior to Visit Medication Sig Dispense Refill ??? acetaminophen (TYLENOL) 500 mg tablet Take 2 Tabs by mouth every 6 hours as needed for Pain or Fever. ??? apixaban (ELIQUIS) 5 mg tablet Take 2 Tabs by mouth 2 times daily for 7 days, THEN 1 Tab 2 times daily for 23 days. 74 Tab 0 ??? atorvastatin (LIPITOR) 20 mg tablet [...] 2 Tabs by mouth at bedtime. ??? diphenhydrAMINE (BENADRYL) 50 mg capsule Take 1 Cap by mouth as needed for up to 1 dose (hives). (Patient not taking: Reported on 10/21/2019) 2 Cap 0 ??? FREESTYLE FREEDOM LITE Use as directed as needed (glucose monitoring). 1 Each 0 ??? honey (MEDIHONEY, HONEY,) 80 % gel Apply 1 application topically three times a week. (Patient not taking: Reported on 03/02/2020) 1 Tube 2 ??? ibuprofen (MOTRIN) 200 mg tablet Take 800 mg by mouth daily. (Patient not taking: Reported on 08/19/2020) ??? insulin glargine (LANTUS SOLOSTAR) 100 unit/mL [...] tablet Take 1 Tab by mouth daily. (Patient not taking: Reported on 08/19/2020) 90 Tab 3 ??? magnesium hydroxide (MILK OF MAGNESIA) 400 mg/5 mL suspension Take 30 mL by mouth daily as needed. (Patient not taking: Reported on 08/19/2020) ??? metFORMIN (GLUCOPHAGE) 500 mg tablet Take 1 Tab by mouth 2 times daily. 180 Tab 3 ??? SITagliptin (JANUVIA) 100 mg tablet Take 1 Tab by mouth daily. 90 Tab 3 ??? sodium chloride 0.9 %, flush, flush syringe For valved catheters (Groshong, Vaxcel, Solo PICC, Mid-line, and Groshong Chest Port): Flush all lumens with 10 mL every week if not in use. Flush 10 mL before and 10 mL after each medication dose (20 mL after vancomycin doses). Flush with 20 mL afterblood draws. Dispense quantity sufficient. (Patient not taking: Reported on 11/28/2019) 1 Box PRN ??? sodium phosphate (FLEET ENEMA) 19-7 gram/[address] 1 Enema rectally daily as needed. ??? traMADol (ULTRAM) 50 mg tablet Take 1 Tab by mouth every 6 hours as needed for up to 10 doses for Pain. Daily Max: 200 mg 10 Tab 0 ??? traMADol (ULTRAM) 50 mg tablet Take 1 Tab by mouth 2 times daily as needed for Pain. Daily Max:100 mg 60 Tab 0 No current facility-administered medications on file prior to visit. No Known Allergies Review of Systems Respiratory: Negative for shortness of breath. Cardiovascular: Negative for chest pain. - See HPI Objective: BP 118/80 Pulse 103 Temp 36.8 ??C (98.3 ??F) Wt (!) 113.4 kg (250 lb) SpO2 96% BMI 32.10 kg/m?? Physical Exam Constitutional: General: He is not in acute distress. Appearance: He is well-developed and well-nourished. Neck: Comments: No carotid bruits Cardiovascular: Rate and Rhythm: Normal rate and regular rhythm. Heart sounds: Normal heart sounds. No murmur heard. Pulmonary: Effort: Pulmonary effort is normal. Breath sounds: Normal breath sounds. Musculoskeletal: Comments: Left leg is elevated on a stool, minimal edema, no erythema, pain with palpation over posterior fossa of knee but no cord felt Neurological: Mental Status: He is alert and oriented to person, place, and time. Psychiatric: Mood and Affect: Mood and affect normal. Assessment: Plan: 1. Diabetes Will check A1C today at his next visit as he says he has been through a lot and cannot deal with more needles right now 2. Diabetic ulcer Resolved but he continues to follow up with Dr. Gonzales 3. Chronic pain Refill tramadol today given the pain from his DVT< but we discussed that I would liek to taper this medication. 4. DVT As above, can use tramadol for the pain He is sedentary, however no travel or recent surgery and so I am going to refer to hematology for further evaluation. Jeff did not want labs today- but would likely get a PSA in the future. He did have a colonoscopy in 2019. I spent 30 minutes of face-face time with the patient, over half of it was in counseling Jason Batres MD documented in this encounter Plan of Treatment Not on file documented as of this encounter Visit Diagnoses Diagnosis Acute deep vein thrombosis (DVT) of proximal vein of left lower extremity ([facility])- Primary documented in this encounter Discontinued Medications Medication Sig Discontinue Reason Start Date End Da te traMADol (ULTRAM) 50 mg tablet Take 1 Tab by mouth 2 times daily as needed for Pain. Daily Max: 100 mg Reorder 07/16/2020 08/19/2020 documented as of this encounter Care Teams Business Development Agent Relationship Specialty Start Date End Date Jason Batres MD [address] [place] [address] PCP - General 07/27/11 12/31/23 documented as of this encounter
--- OUTSIDE RECORDS SUMMARY | 2024-02-28 16:47 | XMS_ITS | Encounter Summary ---
Author Organization [facility] Address [address] [place] [address] Care Team Providers Care [employer] Name Role Phone Jason Batres MD Primary Care Provi margarita Reason for Visit * Reason Comments Leg Pain BIBEMS from home wit h left posterior knee pain x 7 days, with upper calf pain. Calf is red, swollen. Left foot is pink/warm, no pain. VSS Encounter Details Date Type Department Care Team (Late st Contact Info) Description 08/12/2020 10:58 EDT - 08/12/2020 15:37 EDT Emergency [facility] Emergency Department - [address] [id number] Martina Rodney MD [address] [facility], [facility], Level [address] [place] [address] DVT, lower extremity, proximal, acute, left (HCC-CMS) (Primary Dx) Discharge Disposition: Home or Self Care Social [...] Sign Reading Time Taken Comments Blood Pressure 120/76 08/12/2020 1419 EDT Pulse 97 08/12/2020 1419 EDT Temperature 37.2 ??C (98.9 ??F) 08/12/2020 1057 EDT Respiratory Rate 16 08/12/2020 1419 EDT Oxygen Saturation 100% 08/12/2020 1057 EDT Inhaled Oxygen Concentration - - Weight 106.6 kg (235 lb) 08/12/2020 1057 EDT Height 188 cm (6' 2) 08/12/2020 1057 EDT Body Mass Index 30.17 08/12/2020 1057 EDT documented in this encounter [...] Answer Entry Date Author No 10/04/2019 12:00 EDT Anna Sevilla RN documented in this encounter Discharge Instructions * Discharge Instructions* Martina Rodney MD - 08/12/2020 13:41 EDT You have a blood clot in your left leg. Begin apixaban as prescribed. You should follow-up with your primary care provider in approximately 1 week. Return if symptoms worsen or new symptoms develop. Thank you for using the [facility] emergency department for your health concerns. * Attachments The following attachments cannot be sent through Care Everywhere. * DVT (Deep Vein Thrombosis) (Kyrgyz) documented in this encounter Medications at Time of Discharge blood glucose meter (FREESTYLE FREEDOM LITE) Test FS BID. 1 Each 0 11/11/2013 FREESTYLE FREEDOM LITE Use as directed as needed (glucose monitoring). 1 Each 11/14/2017 acetaminophen (TYLENOL) 500 mg tablet Take 2 Tabs by mouth every 6 hours as needed for Pain or Fever. 10/14/2019 1 apixaban (ELIQUIS) 5 mg tablet Take 2 Tabs by mouth 2 times daily for 7 days, THEN 1 Tab 2 times daily for 23 days. 74 Tab 08/12/2020 1 atorvastatin (LIPITOR) 20 mg tablet Take 1 [...] Tabs by mouth at bedtime. 10/14/2019 3 diphenhydrAMINE (BENADRYL) 50 mg capsuleIndications :Acute osteomyelitis of right ankle or foot (HCC-CMS) Take 1 Cap by mouth as needed for up to 1 dose (hives). 2 Cap 10/15/2019 1 honey (MEDIHONEY, HONEY,) 80 % gel Apply 1 application topically three times a week. 1 Tube 2 01/28/2020 1 ibuprofen (MOTRIN) 200 mg tablet Take 800 mg by mouth daily. 1 insulin glargine (LANTUS SOLOSTAR) 100 unit/mL (3 mL) injection pen Inject 45 Units into the skin at bedtime. 2 Box 2 04/22/2020 1 insulin lispro (HUMALOG KWIKPEN INSULIN) 100 unit/mL injectable pen Inject 10 Units into the skin 3 times daily with meals. 2 Box 3 04/23/2020 1 lancets Test BID. 100 Each 1 11/11/2013 3 levothyroxine (SYNTHROID) 112 mcg tablet Take 1 Tab by mouth daily. 90 Tab 3 04/22/2020 2 magnesium hydroxide (MILK OF MAGNESIA) 400 mg/5 mL suspension Take 30 mL by mouth daily as needed. 1 metFORMIN (GLUCOPHAGE) 500 mg tablet Take 1 Tab by mouth 2 times daily. 180 Tab 3 04/22/2020 1 SITagliptin (JANUVIA) 100 mg tablet Take 1 Tab by mouth daily. 90 Tab 3 04/22/2020 1 sodium chloride 0.9 %, flush, flush syringeIndications :Acute osteomyelitis of right ankle or foot (HCC-CMS) For valved catheters (Groshong, Vaxcel, Solo PICC, Mid-line, and Groshong Chest Port): Flush all lumens with 10 mL every week if not in use. Flush 10 mL before and 10 mL after each medication dose (20 mL after vancomycin doses). Flush with 20 mL after blood draws. Dispense quantity sufficient. 1 Box 10/15/2019 1 sodium phosphate (FLEET ENEMA) 19-7 gram/[address] 1 Enema rectally daily as needed. 1 traMADol (ULTRAM) 50 mg tablet Take 1 Tab by mouth every 6 hours as needed for up to 10 doses for Pain. Daily Max: 200 mg 10 Tab 08/12/2020 1 traMADol (ULTRAM) 50 mg tablet Take 1 Tab by mouth 2 times daily as needed for Pain. Daily Max: 100 mg 60 Tab 07/16/2020 1 documented as of this encounter Ordered Prescriptions Prescription Sig Dispense Quantity Refills Last Filled Start Date End Date traMADol (ULTRAM) 50 mg tablet Take 1 Tab by mouth every 6 hours as needed for up to 10 doses for Pain. Daily Max: 200 mg 10 Tab 08/12/2020 09/21/2020 apixaban (ELIQUIS) 5 mg tablet Take 2 Tabs by mouth 2 times daily for 7 days, THEN 1 Tab 2 times daily for 23 days. 74 Tab 08/12/2020 09/11/2020 documented in this encounter Discharge Disposition Disposition Code Departure Means Destination Home or Self Fdc documented in this encounter ED Notes * Martina Rodney MD - 08/12/2020 1100 EDT This patient received an evaluation and medical screening exam for emergent medical conditions at the [facility] on 08/12/2020. Scribe Attestation: This documentation is recorded by Hiwot Hurtado acting as Scribe under the direction and presence of Martina Rodney MD. Martina Rodney MD: I personally performed the services recorded by the scribe in my presence. I confirm the scribe's documentation has been reviewed by me to accurately and completely record my work, treatment, procedures, and medical decision making. Chief Complaint Chief Complaint Patient presents with ??? Leg Pain BIBEMS from home with left posterior knee pain x 7 days, with upper calf pain. Calf is red, swollen. Left foot is pink/warm, no pain. VSS HPI Jeff Scott is a 59 y.o. 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 The patient reports that he has had 1 week of throbbing left upper calf pain. He describes slight pain behind his left knee as well, adding that when he stands the painradiates down his calf and into his right hip. He notes that when he lays with his left knee slightly bent, the pain improves. Patient denies chest pain, shortness of breath, heart palpitations or fainting. Patient denies any foot pain, shortness of breath, chest pain, trauma, fall, fever, chills, or any other symptoms. The patient also denies any personal or family history of blood clots. Patient now presents for further evaluation and treatment. Social History- The patient denies smoking or alcohol use. History was provided by: Patient and medical records. Patient's pertinent PMH, FH, and SH were reviewed and updated PRN. ROS Review of Systems Constitutional: Positive for activity change. Negative for chills, diaphoresis, fatigue and fever. HENT: Negative for congestion and nosebleeds. Eyes: Negative for visual disturbance. Respiratory: Negative for chest tightness, shortness of breath and wheezing. Cardiovascular: Negative for chest pain, palpitations and leg swelling. Gastrointestinal: Negative for abdominal pain, blood in stool, diarrhea, nausea, rectal pain and vomiting. Endocrine: Negative. Genitourinary: Negative for difficulty urinating and hematuria. Musculoskeletal: Positive for gait problem and myalgias. Negative for neck pain. +left calf pain Skin: Negative for pallor and rash. Allergic/Immunologic: Negative for immunocompromised state. Neurological: Negative for dizziness, weakness and light-headedness. Hematological: Does not bruise/bleed easily. Psychiatric/Behavioral: Negative for agitation. The patient is not nervous/anxious. All other systems reviewed and are negative. No Known Allergies Physical Exam Vital Signs Vitals Reassessment?: Yes Temp: 37.2 ??C (98.9 ??F) Temp src: Oral Pulse: 97 Resp: 16 SpO2: 100 % BP: 120/76 BP Device: BP Machine BP Patient Position: Semi fowlers BP Cuff Location: Right arm O2 Device: None (Room air) Physical Exam Vitals signs and nursing note reviewed. Constitutional: General: He is not in acute distress. Appearance: Normal appearance. He is not ill-appearing. HENT: Head: Normocephalic and atraumatic. Right Ear: External ear normal. Left Ear: External ear normal. Nose: Nose normal. Mouth/Throat: Mouth: Mucous membranes are moist. Pharynx: Oropharynx is clear. Eyes: Extraocular Movements: Extraocular movements intact. Conjunctiva/sclera: Conjunctivae normal. Pupils: Pupils are equal, round, and reactive to light. Neck: Musculoskeletal: Normal range of motion and neck supple. Cardiovascular: Rate and Rhythm: Normal rate and regular rhythm. Pulmonary: Effort: Pulmonary effort is normal. No respiratory distress. Breath sounds: Normal breath sounds. Abdominal: General: Bowel sounds are normal. There is no distension. Tenderness: There is no abdominal tenderness. Hernia: No hernia is present. Musculoskeletal: Normal range of motion. General: Tenderness present. Left lower leg: Edema present. Comments: Left leg -calf tenderness and tenderness behind left knee, foot is well perfused. Tender behind left knee. Achilles tendon intact, full ROM of left foot. Left foot was warm and well perfused. Left foot is neurovascularly intact Skin: General: Skin is warm and dry. Coloration: Skin is not pale. Neurological: General: No focal deficit present. Mental Status: He is alert and oriented to person, place, and time. Psychiatric: Mood and Affect: Mood normal. Behavior: Behavior normal. Procedures Procedures ED Course A medical screening was performed. The patient is a 59 y.o. male with a history of T2DM with diabetic polyneuropathy, acute osteomyelitis of right ankle of foot, diabetic foot infection of the right foot s/p right foot transmetatarsalamputation, arthritis of the right hip, and craniopharyngioma who presents to the ED for left leg pain in the upper left calf. Vital Signs: BP 120/76 Pulse 97 Temp 37.2 ??C (98.9 ??F) (Oral) Resp 16 Ht 188 cm (74) Wt (!) 106.6 kg (235 lb) SpO2 100% BMI 30.17 kg/m?? Physical exam as above. Differential diagnosis includes but is not limited to: Biggs's cyst, ruptured bakers cyst, DVT, muscle strain. Patient's past medical record reviewed by myself. The patient had a LE Venous Duplex US which was significant for: Extensive deep venous thrombosis in the left lower extremity. Patient had US that was obtained, reviewed, and interpreted by myself along with a radiologist. Please see radiology report for further details. Labs- D-dimer 1834, creatinine 0.60, glucose 316, HCT 38.9, I.N.R. 1.1, pro time 12.2. Patient had labs that were reviewed independently by myself. Patient started on apixaban. (1343) Updated patient on all findings and discussed use of Apixaban. Discussed returning to the EDimmediately for shortness of breath. The patient was discharged home with instructions to take Apixaban as prescribed, to follow up withPCP, and to return to the ED for worsening or concerning symptoms. Prior to discharge usual and customary precautions were reviewed with the patient and/or family including follow-up instructions and reasons to return to the Emergency Department if condition worsens, does not improve as expected, or other new concerns arise. Medical Decision Making MDM Number of Diagnoses or Management Options DVT, lower extremity, proximal, acute, left (HCC-CMS): new, needed workup Amount and/or Complexity of Data Reviewed Clinical lab tests: ordered and reviewed Tests in the radiology section of CPT??: ordered and reviewed Review and summarize past medical records: yes Independent visualization of images, tracings, or specimens: yes (Laboratory tests, ultrasound leftleg) Risk of Complications, Morbidity, and/or Mortality Presenting problems: moderate Diagnostic procedures: moderate Management options: moderate General comments: 4 Patient Progress Patient progress: stable Clinical Impression Final diagnoses: DVT, lower extremity, proximal, acute, left (HCC-CMS) Disposition Discharged The patient's pain was managed to an adequate level weighing risk vs. Benefit of further medications. At the end of my care of this patient, the patient's pain was 3 on a zero to ten scale. Any further pain treatment will be at the discretion of the provider following up with the patient based on their clinical assessment. The patient's condition at the end of my care: Stable documented in this encounter Plan of Treatment Not on file documented as of this encounter Procedures Procedure Name Priority Date/Time Associated Diagnosis Comments PROTIME STAT 08/12/2020 12:42 EDT D-DIMER STAT 08/12/2020 12:42 EDT COMPLETE BLOOD COUNT AND DIFFERENTIAL STAT 08/12/2020 12:42 EDT BASIC METABOLIC PANEL (BMP) STAT 08/12/2020 12:42 EDT POCT GLUCOSE, INTERFACED STAT 08/12/2020 12:02 EDT US LOWER VENOUS DUPLEX (DVT) LEFT STAT 08/12/2020 11:59 EDT documented in this encounter Results * (ABNORMAL) BASIC METABOLIC PANEL (BMP) (08/12/2020 12:42 EDT) Sodium 135(L) 136 - 145 mEq/L 08/12/2020 13:08 [facility] Potassium 4.6 3.5 - 5.0 mEq/L 08/12/2020 13:08 [facility] Chloride 97 96 - 110 mEq/L 08/12/2020 13:08 [facility] CO2 Total 25 22 - 32 mEq/L 08/12/2020 13:08 [facility] Glucose 316(H) 70 - 100 mg/dL 08/12/2020 13:08 [facility] Calcium 9.5 8.5 - 10.5 mg/dL 08/12/2020 13:08 [facility] Calculated Calcium 9.4 8.5 - 10.5 mg/dL 08/12/2020 13:08 [facility] BUN 14 10 - 26 mg/dL 08/12/2020 13:08 [facility] Creatinine 0.60(L) 0.66 - 1.25 mg/dL 08/12/2020 13:08 [facility] eGFR 111 >60 mL/min/1.7 3m2 08/12/2020 13:08 [facility] Comment:eGFR calculated sarahi krishnan CKD-EPI equation for non- Americans. Multiply eGFR by 1.16 for patients. Blood VENOUS BLOOD / Unknown Venipuncture / Unknown 08/12/2020 12:42 EDT 08/12/2020 12:50 EDT Martina Rodney MD CHEMISTRY & BLOOD GAS ORDERAB LES Final Result Performing Organization Address [facility]/ZIP Co de Phone Number [facility] [address] [place] [address] * PROTIME (08/12/2020 12:42 EDT) Pathologist [facility] I.N.R. 1.1 0.9 - 1.1 Ratio 08/12/2020 13:[address] [facility] Pro Time 12.2 10.4 - 12.6 secs 08/12/2020 13:[address] [facility] Blood VENOUS BLOOD / Unknown Venipuncture / Unknown 08/12/2020 12:42 EDT 08/12/2020 12:[address] [facility] - 08/12/2020 13:03 EDT Moderate Intensity Coumadin INR = 2.0-3.0 Adjustments in anticoagulant therapy dose should be based on the INR and NOT on the Protime. Martina Rodney MD HEMATOLOGY & PF4 ORDERABLES F inal Result Performing Organization Address City/[facility] Co de Phone Number [facility] [address] [place] [address] * (ABNORMAL) D-DIMER (08/12/2020 12:42 EDT) [facility] D-Dimer 1,834(H) <=230 ng/mL DDU 08/12/2020 13:[address] [facility] Blood VENOUS BLOOD / Unknown Venipuncture / Unknown 08/12/2020 12:42 EDT 08/12/2020 12:[address] [facility] - 08/12/2020 13:11 EDT Cutoff value for the exclusion of DVT and PE: 230 ng/mL D-dimer units. Any use of the age-adjusted cutoff value is a post-analytic modification of this FDA-approved test and is considered off-label use of the test result. [facility] laboratory does not have literature to support the validity of an age-adjusted cutoff for our specific assay. us Martina Rodney MD HEMATOLOGY & PF4 ORDERABLES F inal Result [facility] [address] [place] [address] * (ABNORMAL) COMPLETE BLOOD COUNT AND DIFFERENTIAL (08/12/2020 12:42 EDT) WBC 7.95 4.00 - 10.40 K/cmm 08/12/2020 12:55 [facility] RBC 4.49 4.36 - 5.78 M/cmm 08/12/2020 12:55 [facility] Hemoglobin 14.0 13.8 - 17.3 gm/dL 08/12/2020 12:55 [facility] HCT 38.9(L) 39.5 - 50.2 % 08/12/2020 12:55 [facility] MCV 87 81 - 95 fl 08/12/2020 12:55 [facility] MCH 31.2 27.6 - 33.0 pg 08/12/2020 12:55 [facility] MCHC 36.0 32.8 - 36.4 gm/dL 08/12/2020 12:55 [facility] RDW-CV 12.3 <14.2 % 08/12/2020 12:55 [facility] RDW-SD 38.9 <46.0 fl 08/12/2020 12:55 [facility] PLT 268 141 - 377 K/cmm 08/12/2020 12:55 [facility] MPV 10.0 9.5 - 12.7 fl 08/12/2020 12:55 [facility] % Neutrophils 71.5 % 08/12/2020 12:55 [facility] % Lymphocytes 18.9 % 08/12/2020 12:55 [facility] % Monocytes 6.9 % 08/12/2020 12:55 [facility] % Eosinophils 2.0 % 08/12/2020 12:55 [facility] % Basophils 0.4 % 08/12/2020 12:55 [facility] % Immature Grans 0.3 % 08/13/19 12:55 [facility] Absolute Neutrophils 5.69 2.20 - 8.85 K/cmm 08/12/2020 12:55 [facility] Absolute Lymphocytes 1.50 1.09 - 3.30 K/cmm 08/12/2020 12:55 [facility] Absolute Monocytes 0.55 0.10 - 0.80 K/cmm 08/12/2020 12:55 [facility] Absolute Eosinophils 0.16 0.03 - 0.61 K/cmm 08/12/2020 12:55 [facility] ABS Basophils 0.03 0.01 - 0.11 K/cmm 08/12/2020 12:55 [facility] Absolute Immature Grans 0.02 0.00 - 0.06 K/cmm 08/12/2020 12:55 [facility] Type of Differential: Auto 08/12/2020 12:55 [facility] Blood VENOUS BLOOD / Unknown Venipuncture / Unknown 08/12/2020 12:42 EDT 08/12/2020 12:50 EDT us Martina Rodney MD PACKAGES & DNA PROBE ORDERABL ES Final Result [facility] [address] [place] [address] * (ABNORMAL) POCT GLUCOSE, INTERFACED (08/12/2020 12:02 EDT) Glucose, POC 302(H) 70 - 100 mg/dL 08/12/2020 12:[address] [facility] HN LAB POC COMMENT (GLUCOSE) Test Performed by Nursing Services 08/12/2020 12:07 [facility] Blood CAPILLARY BLOOD / Unknown 08/12/2020 12:02 EDT 08/12/2020 12:07 EDT us Martina Rodney MD POINT OF CARE TEST ORDERABLES Final Result [facility] [address] [place] [address] * US LOWER VENOUS DUPLEX (DVT) LEFT (08/12/2020 11:59 EDT) Anatomical Region Laterality Modality Vascular Ultrasound 08/12/2020 12:0 7 EDT Impressions 08/12/2020 12:07 EDT Extensive deep venous thrombosis in the left lower extremity as described above. These findings were discussed with MARTINA RODNEY MD by Dr. Tommie Jo on 08/12/2020 11:55 PM. Narrative 08/12/2020 12:07 EDT US LOWER VENOUS DUPLEX (DVT) LEFT ??08/12/2020 11:15 AM SIGNS AND SYMPTOMS/COMMENTS: ??Left upper calf pain, slight pain behind left knee COMPARISON: None available TECHNIQUE: Grayscale, cine, color Doppler, and spectral tracing images were obtained of the deep venous system of the left lower extremity. FINDINGS: Deep veins above the knee: There is noncompressibility and loss of normal color Doppler flow of the left external iliac vein, common femoral vein, deep femoral vein, femoral vein, popliteal vein. Deep veins below the knee: The posterior tibial and peroneal veins also demonstrate noncompressibility and loss of normal color Doppler flow. Superficial veins: There is noncompressibility and loss of normal color Doppler flow in the imaged portion of the proximal great saphenous vein. Other: No evidence of subcutaneous edema. Procedure Note Tommie Jo MD - 08/12/2020 US LOWER VENOUS DUPLEX (DVT) LEFT 08/12/2020 11:15 AM SIGNS AND SYMPTOMS/COMMENTS: Left upper calf pain, slight pain behindleft knee COMPARISON: None available TECHNIQUE: Grayscale, cine, color Doppler, and spectral tracing imageswere obtained of the deep venous system of the left lower extremity. FINDINGS: Deep veins above the knee: There is noncompressibility and loss of normalcolor Doppler flow of the left external iliac vein, common femoral vein,deep femoral vein, femoral vein, popliteal vein. Deep veins below the knee: The posterior tibial and peroneal veins alsodemonstrate noncompressibility and loss of normal color Doppler flow. Superficial veins: There is noncompressibility and loss of normal colorDoppler flow in the imaged portion of the proximal great saphenous vein. Other: No evidence of subcutaneous edema. IMPRESSION Extensive deep venous thrombosis in the left lower extremity as describedabove. These findings were discussed with MARTINA RODNEY MD by Dr. Tommie Jo on08/12/2020 11:55 PM. us Martina Rodney MD [facility] VASCULAR ORDERABLES Fi nal Result documented in this encounter Visit Diagnoses Diagnosis DVT, lower extremity, proximal, acute, left ([facility])- Primary documented in this encounter Administered Medications Inactive Administered Medications - up to 3 most recent administrations Medication Order MAR Action Action Date Dose Rate Site traMADol (ULTRAM) 50 mg tablet 1 dose, Starting on Caridad 08/12/20 at 1432, Until Caridad 08/12/20 at 1435 Given 08/12/2020 14:35 EDT 50 mg documented in this encounter Active and Recently Administered Medications Times are shown in EDT. Scheduled Medication Order 08/10/2020 08/11/2020 08/12/2020 traMADol (ULTRAM) tablet 50 mg 50 mg, oral, NOW X1, 1 dose, On Caridad 08/12/20 at 1445, STAT 1530 (Canceled Entry - Provider: Yanira Ybarra RN) No Frequency Medication Order 08/10/2020 08/11/2020 08/12/2020 traMADol (ULTRAM) 50 mg tablet (COMPLETED) 1 dose, Starting on Caridad 08/12/20 at 1432, Until Caridad 08/12/20 at 1435 1435 (Given - Provid er: Adilene Akins RN) documented in this encounter Orders Medications Ordered That Matthew ht Not Have Been Administered Count Last Ordered Date First Ordered Date traMADol (ULTRAM) tablet 50 mg 1 08/12/2020 documented in this encounter Care Teams [employer] Relationship Specialty Start Date End Date Jason Batres MD [address] [place] [address] PCP - General 07/27/11 12/31/23 documented as of this encounter
--- OUTSIDE RECORDS SUMMARY | 2024-02-28 16:47 | XMS_ITS | Encounter Summary ---
Author Organization [facility] Address [address] [place] [address] Care Team Providers Care Patrol Sergeant Name Role Phone Jason Batres MD Primary Care Provi margarita Reason for Visit * Reason Onset Date Comments Other 08/25/2020 Encounter Details Date Type Department Care Team (Late st Contact Info) Description 08/25/2020 Telephone Jason Batres MD, PC [address] [place], [place] [phone] Jason Batres MD [address] [place] [phone] Other Social History Tobacco Use Types Packs/Day Years [...] Yes 10/04/2019 12:00 EDT Anna Sevilla RN documented as of this encounter Mental Status * Because of a physical, mental, or emotional condition, do you have serious difficulty concentrating, remembering, or making decisions? (5 years old or older) Answer Entry Date Author No 10/04/2019 12:00 EDT Anna Sevilla RN documented in this encounter Miscellaneous Notes * Telephone Encounter - Constance Mix LPN - 08/26/2020 0946 EDT Jeff called back. He states he is now scheduled to see hematology on 09/27/20. CONSTANCE MIX LPN * Telephone Encounter - Constance Mix LPN - 08/25/2020 1725 EDT I called and LM on cell phone to call back and I also LM on Nguyen's phone that it is important that pt call hematology to schedule appointment. They were not able to reach him to schedule. I provided their contact info to schedule and asked that Nguyen call us back to confirm she received our message. CONSTANCE MIX LPN documented in this encounter Plan of Treatment Not on file documented as of this encounter Visit Diagnoses Not on filedocumented in this encounter Care Teams Patrol Sergeant Relationship Specialty Start Date End Date Jason Batres MD [address] [place] [address] PCP - General 07/27/11 12/31/23 documented as of this encounter
--- OUTSIDE RECORDS SUMMARY | 2024-02-28 16:47 | XMS_ITS | Encounter Summary ---
Author Organization [facility] Address [address] [place] [address] Care Team Providers Care Helper/Driver Name Role Phone Jason Batres MD Primary Care Provi margarita Reason for Visit * Reason Onset Date Comments Medications Refill 08/11/2020 Encounter Details Date Type Department Care Team (Late st Contact Info) Description 08/11/2020 Refill Jason Batres MD, PC [address] [place], [place] [phone] Jason Batres MD [address] [place] [phone] Medications Refill Social History Tobacco Use [...] No 10/04/2019 12:00 EDAnna Smith RN * Do you have serious difficulty [...] Telephone Encounter - Jason Batres MD - 08/11/2020 1059 EDT Jeff is due for a chronic pain visit so I need to see hi, before refilling. Also, his foot ulcer has improved so we need to discuss how much he is still taking This could be a telehealth visit with CLEARING SUPERVISOR documented in this encounter Plan of Treatment Not on file documented as of this encounter Visit Diagnoses Not on filedocumented in this encounter Care Teams Helper/Driver Relationship Specialty Start Date End Date Jason Batres MD [address] [place] [address] PCP - General 07/27/11 12/31/23 documented as of this encounter
--- OUTSIDE RECORDS SUMMARY | 2024-02-28 16:47 | XMS_ITS | Encounter Summary ---
Author Organization [facility] Address [address] [place] [address] Care Team Providers Care Bullet Lubricant Mixer Name Role Phone Jason Batres MD Primary Care Provi margarita Reason for Visit * Reason Onset Date Comments Medication Management 09/21/2020 Encounter Details Date Type Department Care Team (Late st Contact Info) Description 09/21/2020 Telephone Jason Batres MD, PC [address] [place], [place] [phone] Constance Mix RN Medication Management Social History Tobacco Use Types [...] Author No 10/04/2019 12:00 EDT Anna Sevilla, JARVIS * Are you blind or do [...] tablet Take 1 Tablet by mouth daily as needed for Pain. Daily Max: 50 mg 30 Tablet 09/21/2020 10/20/2020 apixaban (ELIQUIS) 5 mg tablet Take 1 Tablet by mouth 2 times daily. 60 Tablet 5 09/21/2020 11/04/2020 documented in this encounter Miscellaneous Notes * Telephone Encounter - Jason Batres MD - 09/21/2020 1422 EDT I filled the Eliquis- he needs to stay on this The tramadol - we need to discuss tapering and so I sent in #30 for a month instead of #60 so he needs to decrease to daily PRN Jason Batres MD * Telephone Encounter - Constance Mix RN - 09/21/2020 1102 EDT Pt called asking for refills of tramadol and blood thinner for his DVT. He states he has not taken it last couple days. Per Dr. Batres's last note on 08/19/20, pt should be taking Eliquis 5mg BID at that time. Last script states he should be taking this dose for 23 days, so a refill may not be needed. Will route to confirm. Last note also mentioned tapering tramadol, will also route to Dr. Batres to order as appropriate. CONSTANCE MIX RN documented in this encounter Plan of Treatment Not on file documented as of this encounter Visit Diagnoses Not on filedocumented in this encounter Discontinued Medications Medication Sig Discontinue Reason Start Date End Da te ibuprofen (MOTRIN) 200 mg tablet Take 800 mg by mouth daily. 09/21/2020 traMADol (ULTRAM) 50 mg tablet Take 1 Tab by mouth every 6 hours as needed for up to 10 doses for Pain. Daily Max: 200 mg 08/12/2020 09/21/2020 traMADol (ULTRAM) 50 mg tablet Take 1 Tablet by mouth 2 times daily as needed for Pain. Daily Max: 100 mg Reorder 08/19/2020 09/21/2020 documented as of this encounter Care Teams Bullet Lubricant Mixer Relationship Specialty Start Date End Date Jason Batres MD [address] [place] [id number] PCP - General 07/27/11 12/31/23 documented as of this encounter
--- OUTSIDE RECORDS SUMMARY | 2024-02-28 16:47 | XMS_ITS | Encounter Summary ---
Author Organization [facility] Address [address] [place] [address] Care Team Providers Care Converting Technician Name Role Phone Jason Batres MD Primary Care Provi margarita Reason for Visit * Reason Comments Community Health Team Encounter Details Date Type Department Care Team (Late st Contact Info) Description 12/01/2020 Community Health Team Jason Batres MD, PC [address] [place], [place] [address] Odette Hector, [facility] [address] [place] [address] Social History Tobacco Use Types Packs/Day Years [...] Answer Entry Date Author No 10/04/2019 12:00 EDAnna Smith RN documented in this encounter Progress Notes * Odette Hector LICSW - 12/01/2020 1441 EDT ..Community Health Team String Winding Machine Operator Encounter Date: 12/01/20 Phone consult as scheduled, Jeff Scott did not answer phone. hollow handle bench worker left voicemail requesting call back to reschedule. Community Health Team office [phone]. PLAN: Jeff to call to reschedule appointment. .. Dr. Batres Total Time: 5 min Referral: none Follow up: Status: Pending JG PELAEZ documented in this encounter Plan of Treatment Not on file documented as of this encounter Visit Diagnoses Not on filedocumented in this encounter Care Teams Converting Technician Relationship Specialty Start Date End Date Jason Batres MD [address] [place] [address] PCP - General 07/27/11 12/31/23 documented as of this encounter
--- OUTSIDE RECORDS SUMMARY | 2024-02-28 16:47 | XMS_ITS | Encounter Summary ---
Author Organization [facility] Address [address] [place] [address] Care Team Providers Care School Director Name Role Phone Jason Batres MD Primary Care Provi margarita Reason for Visit * Reason Onset Date Comments Results 05/25/2020 Encounter Details Date Type Department Care Team (Late st Contact Info) Description 05/25/2020 Telephone Jason Batres MD, PC [address] [place], [place] [phone] Jason Batres MD [address] [place] [phone] Results Social History Tobacco Use Types Packs/Day Years [...] * Telephone Encounter - Mena Gomez - 05/25/2020 1442 EDT Call back from Nguyen Tyler. She says that pt does not get messages on the cell phone listed in pt's chart because it is Nguyen's cell phone. Jeff did not get the message regarding his recent elevated Hemoglobin A1C. Jeff does get messages on the landline and this MA called that number and left a message for Jeff to call us back. Pt was also sent a letter with this information. Mena Gomez MA documented in this encounter Plan of Treatment Not on file documented as of this encounter Visit Diagnoses Not on filedocumented in this encounter Care Teams School Director Relationship Specialty Start Date End Date Jason Batres MD [address] [place] [address] PCP - General 5/24/12 10/28/24 documented as of this encounter
--- OUTSIDE RECORDS SUMMARY | 2024-02-28 16:47 | XMS_ITS | Encounter Summary ---
Author Organization [facility] Address [address] [place] [address] Care Team Providers Care Admeasurer Name Role Phone Jason Batres MD Primary Care Provi margarita Reason for Visit * Reason Onset Date Comments Leg Pain 08/16/2020 Encounter Details Date Type Department Care Team (Late st Contact Info) Description 08/16/2020 Telephone Jason Batres MD, PC [address] [place], [place] [phone] Jason Batres MD [address] [place] [phone] Leg Pain Social History Tobacco Use Types [...] * Telephone Encounter - Mena Gomez - 08/17/2020 0940 EDT This MA advised pt to try taking Tylenol 500mg 2 tabs TID and use heat and elevation for his leg pain. If pt calls and wants a refill of Tramadol then we will schedule him for a visit. Mena Gomez MA * Telephone Encounter - Carmelita Hogue APRN - 08/17/2020 0936 EDT He needs a visit to refill his tramadol. He was scheduled with me last week, I called both phone numbers and left messages and did not receive a call back. Carmelita Hogue APRN * Telephone Encounter - Mena Gomez - 08/16/2020 7877 EDT This MA spoke to pt to verify that he is taking the Eliquis as prescribed. Pt said that he is definitely taking it and was able to tell me the dosing and frequency. Pt also reports that he is out of Tramadol and he takes Tylenol 500mg 2 tabs BID. Mena Gomez MA documented in this encounter Plan of Treatment Not on file documented as of this encounter Visit Diagnoses Not on filedocumented in this encounter Care Teams Admeasurer Relationship Specialty Start Date End Date Jason Batres MD [address] [place] [id number] PCP - General 07/27/11 12/31/23 documented as of this encounter
--- OUTSIDE RECORDS SUMMARY | 2024-02-28 16:47 | XMS_ITS | Encounter Summary ---
Author Organization [facility] Address [address] [place] [address] Care Team Providers Care Editor Dictionary Name Role Phone Jason Batres MD Primary Care Provi margarita Reason for Visit * Reason Comments Foot Problem Encounter Details Date Type Department Care Team (Latest Contact Info) Description 11/03/2020 15:00 EDT Office Visit [facility] - [address] [address] Angelina Gonzales, [facility] [address] [place] [address] Ulcerated, foot, right, limited to breakdown of skin (HCC-CMS) (Primary Dx); Status post amputation of right foot through metatarsal bone ([facility]); Type 2 diabetes mellitus with polyneuropathy ([facility]) Social History Tobacco Use Types Packs/Day Years [...] Anna Sevilla RN documented in this encounter Progress Notes * Angelina Gonzales, BRENDA - 11/03/2020 1500 EDT Jeff Scott is a very pleasant 59 y.o. male patient who presents for follow up for an acute visittoday due to concern of new open area right foot. He noticed this a couple days ago. He is walking around noticed blood in the area. No pain. Overall he is feeling well denies nausea, vomiting, fever, chills. Patient Active Problem List Diagnosis Date Noted ??? Diabetic foot infection ([facility]) 10/04/2019 ??? Acute osteomyelitis of right ankle or foot ([facility]) 10/03/2019 ??? Hyperplastic polyp of descending colon 08/01/2018 ??? Type 2 diabetes mellitus with diabetic polyneuropathy, with long-term current use of insulin ([facility]) 06/24/2018 ??? Acute osteomyelitis of phalanx of foot ([facility]) 03/23/2016 ??? Hypothyroidism 01/22/2013 ??? Osteoarthritis of left hip 07/06/2014 ??? 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 Arthritis ??? Back pain ??? Diabetes mellitus ([facility]) ??? Hypothyroidism ??? Wears glasses Past [...] Neg Hx Current Outpatient Medications Medication Sig Dispense Refill ??? acetaminophen (TYLENOL) [...] Pain. Daily Max: 100 mg 45 Tablet 0 No current facility-administered medications for this visit. No Known Allergies Review of Systems A ten point review of systems was performed. Pertinent positives are listed below, all others are negative. Vital signs: vitals were not taken for this visit. PHYSICAL EXAM: General: AO x 3, NAD Lower extremity: Palpable pedal pulses. Skin temperature gradient within normal limits. Capillary filling time less than 3 seconds to all toes. Ulcer plantar lateral right forefoot. Measures 4 x 4 mm. Surrounding hyperkeratotic tissue. Granular wound base. Does not probe deep. No undermining. No surrounding erythema or edema. Incision line transmetatarsal amputation well-healed. No other ulcerative or preulcerative lesions. Manual muscle testing 5 out of 5. Gross protective sensation absent. ASSESSMENT: 1. Ulcerated, foot, right, limited to breakdown of skin ([facility]) 2. Status post amputation of right foot through metatarsal bone (HCC-CMS) 3. Type 2 diabetes mellitus with polyneuropathy ([facility]) No orders of the defined types were placed in this encounter. PLAN: Mr. Scott presents today for follow-up right forefoot ulcer. Bullae on the side has healed. Small underlying ulcer noted. No signs of infection. Superficial. I pared down the hyperkeratotic tissue. We discussed why he gets this-due to pressure in and too much walking. He is going to cut back on hisphysical activity. He is going to change the dressing daily applying antibiotic ointment and a bandage. I will see him back in 2 weeks. He knows to call before then if any problems arise and is happywith this plan. Portions of this document have been prepared with speech recognition software or keyboard data center manager techniques. Minor irregularities or keyboarding misprints may be present documented in this encounter Plan of Treatment Not on file documented as of this encounter Visit Diagnoses Diagnosis Ulcerated, foot, right, limited to breakdown of skin ([facility])- Primary Status post amputation of right foot through metatarsal bone ([facility]) Type 2 diabetes mellitus with polyneuropathy ([facility]) Type II or unspecified type diabetes mellitus with neurological manifestations, not stated as uncontrolled documented in this encounter Care Teams Editor Dictionary Relationship Specialty Start Date End Date Jason Batres MD [address] [place] [address] PCP - General 07/27/11 12/31/23 documented as of this encounter
--- OUTSIDE RECORDS SUMMARY | 2024-02-28 16:47 | XMS_ITS | Encounter Summary ---
Author Organization [facility] Address [address] [place] [address] Care Team Providers Care Toolroom Clerk Name Role Phone Jason Batres MD Primary Care Provi margarita Reason for Visit * Reason Onset Date Comments Appointment Related 07/20/2020 Encounter Details Date Type Department Care Team (Late st Contact Info) Description 07/20/2020 Telephone Jason Batres MD, PC [address] [place], [place] [phone] Jason Batres MD [address] [place] [phone] Appointment Related Social History Tobacco Use Types [...] * Telephone Encounter - Keyla Rhodes - 07/20/2020 0947 EDT Call pt to tell him he needs apt before his next refill of tramadol. LVM regarding this. documented in this encounter Plan of Treatment Not on file documented as of this encounter Visit Diagnoses Not on filedocumented in this encounter Care Teams Toolroom Clerk Relationship Specialty Start Date End Date Jason Batres MD [address] [place] [id number] PCP - General 07/27/11 12/31/23 documented as of this encounter
--- OUTSIDE RECORDS SUMMARY | 2024-02-28 16:47 | XMS_ITS | Encounter Summary ---
Author Organization [facility] Address [address] [place] [address] Care Team Providers Care Boarding House Cook Name Role Phone Jason Batres MD Primary Care Provi margarita Reason for Visit * Reason Onset Date Comments Other 05/20/2020 Encounter Details Date Type Department Care Team (Late st Contact Info) Description 05/20/2020 Refill Jason Batres MD, PC [address] [place], [place] [phone] Jason Batres MD [address] [place] [phone] Other Social History Tobacco Use Types [...] Pain. Daily Max: 100 mg 60 Tab 1 05/21/2020 07/16/2020 documented in this encounter Plan of Treatment Not on file documented as of this encounter Visit Diagnoses Not on filedocumented in this encounter Discontinued Medications Medication Sig Discontinue Reason Start Date End Da te traMADol (ULTRAM) 50 mg tablet Take 1 Tab by mouth 2 times daily as needed for Pain. Daily Max: 100 mg Reorder 04/22/2020 05/20/2020 documented as of this encounter Care Teams Boarding House Cook Relationship Specialty Start Date End Date Jsaon Batres MD [address] [place] [id number] PCP - General 07/27/11 12/31/23 documented as of this encounter
--- OUTSIDE RECORDS SUMMARY | 2024-02-28 16:47 | XMS_ITS | Encounter Summary ---
Author Organization [facility] Address [address] [place] [address] Care Team Providers Care Database Specialist Name Role Phone Jason Batres MD Primary Care Provi margarita Reason for Visit * Reason Comments Foot Problem Encounter Details Date Type Department Care Team (Latest Contact Info) Description 06/28/2020 10:30 EDT Office Visit [facility] - [address] [address] Lindsay Carrillo NP [address] [place] [address] Status post amputation of right foot through metatarsal bone ([facility]) (Primary Dx); Type 2 diabetes mellitus with polyneuropathy ([facility]) Social History Tobacco Use Types Packs/Day Years [...] Anna Stephens RN documented in this encounter Progress Notes * Lindsay Carrillo APRN - 06/28/2020 1030 EDT Diagnosis: ICD-10-CM ICD-9-CM 1. Status post amputation of right foot through metatarsal bone ([facility]) Z89.431 V49.73 2. Type 2 diabetes mellitus with polyneuropathy ([facility]) E11.42 250.60 357.2 Jeff Scott is being seen today for Foot Problem . He was originally sent in consultation from Medardo ZHANG: Jeff Scott is a 59 y.o. male with type 2 diabetes mellitus s/p right transmetatarsalamputation who returns for a diabetic foot follow-up. His amputation site continues to remain healed. He is very pleased by this. He was fitted for new shoes and insoles back in early May and has still not received them. [facility] and was told they had not come in yet. He is frustrated by this. He is still wearing the surgical shoe and staying off of his foot for the most part. Pain Rating: Pain Orientation : Right Pain Location: Foot Numeric Pain Level (Scale 1-10): 5 Patient Active Problem List Diagnosis Date Noted ??? Diabetic foot infection ([facility]) 10/04/2019 Priority: Medium ??? Hyperplastic polyp of descending colon 08/01/2018 Priority: Medium ??? Type 2 diabetes mellitus with diabetic polyneuropathy, with long-term current use of insulin ([facility]) 06/24/2018 Priority: Medium ??? Acute osteomyelitis of phalanx of foot ([facility]) 03/23/2016 Priority: Medium ??? Hypothyroidism 01/22/2013 Priority: Medium ??? Acute osteomyelitis of right ankle or foot ([facility]) 10/03/2019 ??? Osteoarthritis of left hip 07/06/2014 ??? 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 Arthritis ??? Back pain ??? Diabetes mellitus ([facility]) ??? Hypothyroidism ??? Wears glasses Past [...] as needed for Pain or Fever. ??? atorvastatin (LIPITOR) 20 mg tablet Take [...] tablet Take 800 mg by mouth daily. ??? insulin glargine (LANTUS SOLOSTAR) 100 unit/mL [...] by mouth daily. 90 Tab 3 ??? magnesium hydroxide (MILK OF MAGNESIA) 400 mg/5 mL suspension Take 30 mL by mouth daily as needed. ??? metFORMIN (GLUCOPHAGE) 500 mg tablet Take [...] for Pain. Daily Max:100 mg 60 Tab 1 No current facility-administered medications for this visit. No Known Allergies OBJECTIVE: The patient is in no acute distress. He appears normal with appropriate mood and affect. He is alert and oriented to person, place, and time. He is a good historian. Exam of the right foot/ankle: Cardiovascular: Capillary refill is normal and pedal pulses are palpable Neurological: Light touch sensation is decreased- baseline neuropathy Swelling: none Skin exam: S/p transmetatarsal amputation, well healed. No open areas of skin breakdown noted. Xrays obtained today: none ASSESSMENT: 1. Status post amputation of right foot through metatarsal bone ([facility]) 2. Type 2 diabetes mellitus with polyneuropathy ([facility]) No orders of the defined types were placed in this encounter. PLAN: Mr. Scott presents today for follow-up right foot ulcer s/p transmetatarsal amputation. The ulcer continues to remain closed. This is very reassuring. He was fitted for his new shoes and insoles at [facility] back in May but has still not received them. He was encouraged to continue in his surgical sandal until he gets them. He was also encouraged to follow-up with [facility]. Once he gets these, he can slowly start to increase his activity. He understands that he will need to break in the shoes by wearing them around the house at first. We again discussed that ulcers can recur during this break in period and he really needs to check his feet daily for any concerns. I will see himback in follow-up in 6 weeks time. He will then see Dr. Gonzales in November 2020 as previously planned. -X-rays for next visit:none -Follow up: Return in about 6 weeks (around 08/09/2020) Patient voices understanding and agrees with the plan. Dr. Turner Sifuentes MD, was on site and available for questions during this visit but was not consulted. Cc: Requesting Provider - Dr. Batres PCP - Jason Batres documented in this encounter Plan of Treatment Not on file documented as of this encounter Visit Diagnoses Diagnosis Status post amputation of right foot through metatarsal bone (HCC-CMS)- Primary Type 2 diabetes mellitus with polyneuropathy ([facility]) Type II or unspecified type diabetes mellitus with neurological manifestations, not stated as uncontrolled documented in this encounter Care Teams Database Specialist Relationship Specialty Start Date End Date Jason Batres MD [address] [place] [id number] PCP - General 07/27/11 12/31/23 documented as of this encounter
--- OUTSIDE RECORDS SUMMARY | 2024-02-28 16:47 | XMS_ITS | Encounter Summary ---
Author Organization [facility] Address [address] [place] [address] Care Team Providers Care Metal Mockup Maker Name Role Phone Jason Batres MD Primary Care Provi margarita Reason for Visit * Reason Comments Chronic Pain Encounter Details Date Type Department Care Team (Late st Contact Info) Description 10/20/2020 10:30 EDT Office Visit Jason Batres MD, PC [address] [place], [place] [address] Herman Horton, [address] [phone] Acute deep vein thrombosis (DVT) of left lower extremity, unspecified vein (HCC-CMS) (Primary Dx); Chronic pain in right foot Social History Tobacco Use Types Packs/Day Years [...] Sign Reading Time Taken Comments Blood Pressure 134/82 10/20/20202004 EDT Pulse 80 10/20/20202004 EDT Temperature 36.8 ??C (98.3 ??F) 10/20/20202004 EDT Respiratory Rate 18 10/20/20202004 EDT Oxygen Saturation 99% 10/20/20202004 EDT Inhaled Oxygen Concentration - - Weight [...] Pain. Daily Max: 100 mg 45 Tablet 10/20/2020 11/11/2020 documented in this encounter Progress Notes * Herman Horton DNP - 10/20/2020 1030 EDT Subjective: Patient ID: Jeff Scott is an 59 y.o. male. Chief Complaint Patient presents with ??? Chronic Pain HPI Jeff presents to the clinic today in follow-up to discuss his recent left DVT and also his chronicfoot pain. Jeff was diagnosed with a DVT back in August when he developed severe sudden left lower leg pain. Hewas started on Eliquis 10mg BID x 1 week and then transitioned to 5mg BID. The DVT was not provokedso he is due to see hematology to discuss any further work-up that might be warranted to try and determine what could have caused this. Jeff says that the pain in his left leg was very severe, but that is diminished now and he is doing much better. Jeff also has a hx of chronic pain in his right foot related to a previous diabetic foot ulcer. Jeff currently takes Tramadol 50mg BID prn for this. Jeff says that he takes tramadol every morning.This helps him to stay active, ride his bike and walk regularly. He also feels most days that he needs an additional tramadol in the evening too so he takes a second. We discussed his tramadol usage and trying to taper down on this as his foot pain seems to be better, and the DVT pain is better too. Jeff says that he does take Tylenol too but only 1g per day in the morning. Patient Active Problem List Diagnosis ??? Late [...] I&D, amputation 2nd & 3rd rays, Ramirez Family History Problem Relation Age of Onset [...] Reported on 03/02/2020) 1 Tube 2 ??? insulin glargine (LANTUS [...] No Known Allergies Review of Systems Constitutional: Negative for chills, fever and malaise/fatigue. Respiratory: Negative for cough and shortness of breath. Cardiovascular: Positive for leg swelling (Left leg, improving with Eliiquis use). Negative for chest pain and palpitations. Musculoskeletal: Positive for joint pain (Right foot, chronic). - See HPI Objective: BP 134/82 Pulse 80 Temp 36.8 ??C (98.3 ??F) Resp 18 SpO2 99% Physical Exam Constitutional: General: He is not in acute distress. Appearance: He is well-developed and well-nourished. He is not diaphoretic. Pulmonary: Effort: Pulmonary effort is normal. Breath sounds: Normal breath sounds. Musculoskeletal: General: Edema (Non-pitting in LLE) present. Normal range of motion. Cervical back: Normal range of motion and neck supple. Skin: General: Skin is warm and dry. Findings: No erythema or rash. Neurological: Mental Status: He is alert and oriented to person, place, and time. Psychiatric: Mood and Affect: Mood and affect normal. Behavior: Behavior normal. Thought Content: Thought content normal. Judgment: Judgment normal. Assessment: DVT - Unprovoked. Now on Eliquis 5mg BID and will continue this until eval with hematology. Pain and swelling improved following initiation of anticoagulation. No signs of subsequent PE. Chronic right foot pain - Improved however this does still persist. Tramadol helps with this. Currently taking Tylenol but only 1g per day. Plan: Jeff was seen today for chronic pain. Diagnoses and all orders for this visit: Acute deep vein thrombosis (DVT) of left lower extremity, unspecified vein (HCC-CMS) Chronic pain in right foot Other orders - traMADol (ULTRAM) 50 mg tablet; Take 1 Tablet by mouth 2 times daily as needed for Pain. Daily Max: 100 mg -Encouraged Jeff to continue the Eliquis 5mg BID use until f/u with hematology -Reviewed the potential adverse effects of Eliquis, like excess bleeding and asked Jeff to watch for these -In terms of his right foot pain, after some discussion Jeff and I came to the agreement that we would try and taper his tramadol -It looks like Dr. Batres had only sent in #30 tramadol when he last filled but Jeff says that he has been taking 2 tabs most days so unsure where the discrepancy is -I agreed to send in #45 and he will continue to take once daily in the AM but will try and only take an additional in the PM if he really needs it -I did encourage him to increase his Tylenol use to 1g TID -Reviewed with Jeff that he should not take NSAIDs due to his Eliquis use -F/u in 1 month and will plan to taper tramadol further at that time Herman Horton DNP documented in this encounter Plan of Treatment Not on file documented as of this encounter Visit Diagnoses Diagnosis Acute deep vein thrombosis (DVT) of left lower extremity, unspecified vein (HCC-CMS)- Primary Chronic pain in right foot Pain in limb documented in this encounter Discontinued Medications Medication Sig Discontinue Reason Start Date End Da te traMADol (ULTRAM) 50 mg tablet Take 1 Tablet by mouth daily as needed for Pain. Daily Max: 50 mg Reorder 09/21/2020 10/20/2020 documented as of this encounter Care Teams Metal Mockup Maker Relationship Specialty Start Date End Date Jason Batres MD [address] [place] [address] PCP - General 07/27/11 12/31/23 documented as of this encounter
--- OUTSIDE RECORDS SUMMARY | 2024-02-28 16:47 | XMS_ITS | Encounter Summary ---
Author Organization [facility] Address [address] [place] [address] Care Team Providers Care Cut Filer Name Role Phone Jason Batres MD Primary Care Provi magrarita Reason for Visit * Reason Onset Date Comments Medications Refill 06/18/2020 Encounter Details Date Type Department Care Team (Late st Contact Info) Description 06/18/2020 Refill Jason Batres MD, PC [address] [place], [place] [phone] Jason Batres MD [address] [place] [phone] Medications Refill Social History Tobacco Use [...] Date Author No 10/04/2019 12:00 EDT Anna Sevilal RN documented in this encounter Miscellaneous Notes * Telephone Encounter - Keyla Rhodes - 06/18/2020 1106 EDT Erroneous entry, has refills documented in this encounter Plan of Treatment Not on file documented as of this encounter Visit Diagnoses Not on filedocumented in this encounter Care Teams Cut Filer Relationship Specialty Start Date End Date Jason Batres MD [address] [place] [id number] PCP - General 07/27/11 12/31/23 documented as of this encounter
--- OUTSIDE RECORDS SUMMARY | 2024-02-28 16:47 | XMS_ITS | Encounter Summary ---
Author Organization [facility] Address [address] [place] [address] Care Team Providers Care Correctional Facility Nurse Name Role Phone aJson Batres MD Primary Care Provi margarita Reason for Visit * Reason Comments Foot Problem Encounter Details Date Type Department Care Team (Latest Contact Info) Description 05/04/2020 15:00 EST Office Visit [facility] Foot [facility] Ankle Program - [address] [address] Angelina Gonzales, [facility] [address] [place] [address] Ulcerated, foot, right, with fat layer exposed ([facility]) (Primary Dx); Type 2 diabetes mellitus with diabetic polyneuropathy, with long-term current use of insulin (HCC-CMS); Status post transmetatarsal amputation of foot, right ([facility]) Social History Tobacco Use Types Packs/Day Years [...] 10/04/2019 12:00 FREDERICT Anna Sevilla RN * Are you blind [...] in this encounter Progress Notes * Angelina Gonzales DPM - 05/04/2020 1500 EST Images from the original note were not included. Jeff Scott is a very pleasant 59 y.o. male patient who presents for follow up right foot ulcer status post transmetatarsal amputation. He reports this has been doing very well. He believes the ulcer is healed. VNA has been coming for dressing changes. He has been staying off the foot and using the crutches as much as he is able. Overall he is feeling well today and denies nausea, vomiting, fever, chills. Denies pain in the foot. Patient Active Problem List Diagnosis Date Noted ??? Diabetic foot infection ([facility]) 10/04/2019 Priority: Medium ??? Acute osteomyelitis of right ankle or foot ([facility]) 10/03/2019 Priority: Medium ??? Hyperplastic polyp of descending colon 08/01/2018 Priority: Medium ??? Type 2 diabetes mellitus with diabetic polyneuropathy, with long-term current use of insulin ([facility]) 06/24/2018 Priority: Medium ??? Acute osteomyelitis of phalanx of foot ([facility]) 03/23/2016 Priority: Medium ??? Hypothyroidism 01/22/2013 Priority: Medium ??? Osteoarthritis of left hip 07/06/2014 ??? 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 Arthritis ??? Back pain ??? Diabetes mellitus ([facility]) ??? Hypothyroidism ??? Wears glasses Past Surgical [...] not taken for this visit. PHYSICAL EXAM: General:??AO x 3, NAD Lower extremity:??Palpable pedal pulses. ??Skin temperature gradient within normal limits. Capillary filling??time less than 3 seconds to all toes. ??Status post right foot transmetatarsal amputation. ??Ulcer dorsally??well healed.?Xerosis dorsally, improved. Ulcer plantarly, as below. ??Measures??3 x 1??mm. ??Overlying hyperkeratotic tissue with mild buildup.??Granular wound base. ??No probe to bone. ??No surrounding erythema or edema. ??No pain on probing. ??No fluctuance. ??Foot is able to get to 90 degrees at the ankle. ??No pain with range of motion of the ankle joint. ??Manual muscletesting 5 out of 5. ??Gross protective sensation absent. Right dorsal foot: Right plantar foot after debridement: ASSESSMENT: 1. Ulcerated, foot, right, with fat layer exposed ([facility]) GENERIC ORTHO VENDOR DME GENERIC DME ORDER 2. Type 2 diabetes mellitus with diabetic polyneuropathy, with long-term current use of insulin ([facility]) GENERIC ORTHO VENDOR DME GENERIC DME ORDER 3. Status post transmetatarsal amputation of foot, right ([facility]) GENERIC ORTHO VENDOR DME GENERIC DME ORDER Other Orders Placed This Visit Procedures ??? Generic Ortho Vendor DME ??? Generic DME Order PLAN: Mr. Scott presents today for follow-up right foot ulcer status post transmetatarsal amputation. This has nearly healed. No signs of infection. I did pare down the callus today. He is going to continue with dressing changes and continue to stay off the foot until this fully heals. He has reached thepoint where we can now get him fitted for diabetic shoes with a toe filler for the right foot. I gave him a prescription and instructions on getting fitted at [facility]. I am going to see him back in approximately 3 weeks. If healed, will plan to transition into shoes at that point once they are available. He knows to call before then if any problems arise and is happy with this plan. Instructions for VNA: Change dressing to right foot 3 times a week.?? Apply moisturizing lotion, thin layer, to dry skin dorsally.??Apply Medihoney to??plantar ulcer. ??Apply DSD, Kerlix, KACEY bandage.?Please do not apply Coban. ?He should be nonweightbearing to the right foot. ??He should be k eeping the dressing clean and dry between VNA??visits. Ulcer has nearly healed. He was given a prescription today to get fitted for shoes and an insole with toe filler for his right foot, [facility], to have to wear once wound has healed. He hasfollow up with me??in 3 weeks. Please call with any concerns.?? Portions of this document have been prepared with speech recognition software or keyboard big data engineer techniques. Minor irregularities or keyboarding misprints may be present * Herlinda Navarro LPN - 05/04/2020 1500 EST Call to [facility] with wound care instructions, left message with Jorge. Note is in epic. HERLINDA NAVARRO LPN documented in this encounter Plan of Treatment Not on file documented as of this encounter Visit Diagnoses Diagnosis Ulcerated, foot, right, with fat layer exposed ([facility])- Primary Type 2 diabetes mellitus with diabetic polyneuropathy, with long-term current use of insulin ([facility]) Status post transmetatarsal amputation of foot, right ([facility]) documented in this encounter Orders Equipment Count Last Ordered Date First Orde red Date GENERIC ORTHO VENDOR DME 1 05/04/2020 documented in this encounter Care Teams Correctional Facility Nurse Relationship Specialty Start Date End Date Jason Batres MD [address] [place] [address] PCP - General 07/27/11 12/31/23 documented as of this encounter
--- OUTSIDE RECORDS SUMMARY | 2024-02-28 16:47 | XMS_ITS | Encounter Summary ---
Author Organization [facility] Address [address] [place] [address] Care Team Providers Care Program Manager Slp Name Role Phone Jason Batres MD Primary Care Provi margarita Reason for Visit * Reason Comments Foot Problem Encounter Details Date Type Department Care Team (Latest Contact Info) Description 10/27/2020 13:30 EDT Office Visit [facility] Foot & Ankle Program - [address] [address] Angelina Gonzales, [facility] [address] [place] [address] Ulcerated, foot, right, limited to breakdown of skin (HCC-CMS) (Primary Dx); Status post amputation of right foot through metatarsal bone ([facility]); Type 2 diabetes mellitus with polyneuropathy ([facility]) Social History Tobacco Use Types Packs/Day Years [...] Progress Notes * Angelina Gonzales, BRENDA - 10/27/2020 1330 EDT Jeff Scott is a very pleasant 59 y.o. male patient who presents for follow up high risk foot care. He reports that he has been doing well. He has not noticed any concerning areas on his feet. He did get his new shoes and insoles and has been wearing these. He finds them very comfortable. He has been very active lately. He has been biking a lot and walking a lot. He does note that he is currently going through a divorce with his and this has been time-consuming and stressful. He denies pain in the feet today. Overall he is feeling well denies nausea, vomiting, fever, chills. Patient Active Problem List Diagnosis Date Noted ??? Diabetic foot infection ([facility]) 10/04/2019 ??? Acute osteomyelitis of right ankle or foot ([facility]) 10/03/2019 ??? Hyperplastic polyp of descending colon 08/01/2018 ??? Type 2 diabetes mellitus with diabetic polyneuropathy, with long-term current use of insulin ([facility]) 06/24/2018 ??? Acute osteomyelitis of phalanx of foot ([facility]) 03/23/2016 ??? Hypothyroidism 01/22/2013 ??? Osteoarthritis of left hip 07/06/2014 ??? 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 Arthritis ??? Back pain ??? Diabetes mellitus ([facility]) ??? Hypothyroidism ??? Wears glasses Past Surgical History: Procedure Laterality Date ??? BRAIN SURGERY s/p tumor ??? EYE SURGERY ??? FOOT SURGERY Right 03/23/2016 Right partial 2nd toe amputation ??? FOOT SURGERY Right 10/05/2019 I&D, amputation 2nd & 3rd raysJames Social History Tobacco Use ??? Smoking status: [...] less than 3 seconds to all toes. Hyperkeratotic lesion plantar lateral right transmetatarsal amputation site. On paring down, dried blood noted. Superficial ulcer. No erythema or edema. Nodrainage, malodor, necrosis. No pain on probing. Incision line transmetatarsal amputation well-healed. No other ulcerative or preulcerative lesions. Manual muscle testing 5 out of 5. Gross protectivesensation absent. ASSESSMENT: 1. Ulcerated, foot, right, limited to breakdown of skin (HCC-CMS) 2. Status post amputation of right foot through metatarsal bone (HCC-CMS) 3. Type 2 diabetes mellitus with polyneuropathy (HCC-CMS) No orders of the defined types were placed in this encounter. PLAN: Mr. Scott presents today for follow-up diabetic foot evaluation care, high risk. He has a new woundon his right foot plantar lateral transmetatarsal amputation site. I debrided this today. No signs of infection. Superficial. No bony prominences here. Likely due to rubbing in his shoes. He has beenvery active lately. He was not aware that this was here. We discussed the importance of checking his feet daily including the bottoms of his feet due to his neuropathy. He is going to start applying antibiotic ointment and a bandage here. He knows to check it daily. We discussed signs of infection without 4. I will see him back in 3 to 4 weeks. He knows to call before then if any problems arise and is happy with this plan. Portions of this document have been prepared with speech recognition software or keyboard data management specialist techniques. Minor irregularities or keyboarding misprints may be present ' documented in this encounter Plan of Treatment Not on file documented as of this encounter Visit Diagnoses Diagnosis Ulcerated, foot, right, limited to breakdown of skin (HCC-CMS)- Primary Status post amputation of right foot through metatarsal bone ([facility]) Type 2 diabetes mellitus with polyneuropathy ([facility]) Type II or unspecified type diabetes mellitus with neurological manifestations, not stated as uncontrolled documented in this encounter Care Teams Program Manager Slp Relationship Specialty Start Date End Date Jason Batres MD [address] [place] [id number] PCP - General 07/27/11 12/31/23 documented as of this encounter
--- OUTSIDE RECORDS SUMMARY | 2024-02-28 16:47 | XMS_ITS | Encounter Summary ---
Author Organization [facility] Address [address] [place] [address] Care Team Providers Care Enterprise Services Manager Name Role Phone Jason Batres MD Primary Care Provi margarita Reason for Visit * Reason Onset Date Comments Medication Management 06/11/2020 Encounter Details Date Type Department Care Team (Late st Contact Info) Description 06/11/2020 Telephone Jason Batres MD, PC [address], [place] [phone] Jason Batres MD [address] [place] [phone] Medication Management Social History Tobacco Use [...] Assessment Author No 10/04/2019 12:00 EDT Anna Sveilla RN * Are you blind or do [...] * Telephone Encounter - Keyla Rhodes - 06/17/2020 1410 EDT LVM to send us copy of letter. * Telephone Encounter - Jason Batres MD - 06/17/2020 1323 EDT Can you check on this- I have caught up on all the faxes since I was away and do not see anything about Jeff Batres MD * Telephone Encounter - Thelma Ramos - 06/11/2020 1128 EDT Nguyen received a letter from [facility] about changes in medication that will/will not be covered by insurance. Nguyen is going to fax this information to our office. Thelma Ramos documented in this encounter Plan of Treatment Not on file documented as of this encounter Visit Diagnoses Not on filedocumented in this encounter Care Teams Enterprise Services Manager Relationship Specialty Start Date End Date Jason Batres MD [address] [place] [address] PCP - General 07/27/11 12/31/23 documented as of this encounter
--- OUTSIDE RECORDS SUMMARY | 2024-02-28 16:47 | XMS_ITS | Encounter Summary ---
Author Organization [facility] Address [address] [place] [address] Care Team Providers Care Platform Material Handler Manager Name Role Phone Jason Batres MD Primary Care Provi margarita Reason for Visit * Reason Onset Date Comments Leg Pain 08/16/2020 Encounter Details Date Type Department Care Team (Late st Contact Info) Description 08/16/2020 Telephone Jasno Batres MD, PC [address] [place], [place] [phone] Jason Batres MD [address] [place] [phone] Leg Pain Social History Tobacco [...] Telephone Encounter - Mena Gomez - 08/16/2020 1557 EDT Pt notified of Dr. Batres's recommendations. Mena Gomez MA * Telephone Encounter - Jason Batres MD - 08/16/2020 1544 EDT He can use heat yes- can't take NSAID's as he is on the Eliquis. He can use tylenol. Elevate as well Jason Batres MD * Telephone Encounter - Carmelita Hogue APRN - 08/16/2020 1224 EDT Would you recommend heat? What about compression stockings, though may be difficult for him to get on. He missed his appointment last week with me, but sounds like he is taking the eliquis. Celina Hogue APRN * Telephone Encounter - Mena Gomez - 08/16/2020 1447 EDT Pt is c/o left leg pain at the top of his calf. Pt was diagnosed with a blot clot on at the ED and prescribed Eliquis. Pt is taking the Tramadol as prescribed but pt is still having a lot of pain when walking. Pt has been trying to prop his leg up with pillows in his recliner most of the time. Pt is wondering what else he can do for the pain? Mena Gomez MA documented in this encounter Plan of Treatment Not on file documented as of this encounter Visit Diagnoses Not on filedocumented in this encounter Care Teams Platform Material Handler Manager Relationship Specialty Start Date End Date Jason Batres MD [address] [place] [address] PCP - General 07/27/11 12/31/23 documented as of this encounter
--- OUTSIDE RECORDS SUMMARY | 2024-02-28 16:47 | XMS_ITS | Encounter Summary ---
Author Organization [facility] Address [address] [place] [address] Care Team Providers Care Rig Mechanic Name Role Phone Jason Batres MD Primary Care Provi margarita Encounter Details Date Type Department Care Team (Latest Contact Info) Description 12/22/2020 Travel Social History Tobacco Use Types Packs/Day [...] 19:43 EDT documented as of this encounter Functional Status * Are you deaf or do you have serious difficulty hearing? Answer Date of Assessment Author No 12/22/2020 19:21 EDT Abdullahi Rahman RN * Are you blind or do [...] documented as of this encounter Care Teams Rig Mechanic Relationship Specialty Start Date End Date Jason Batres MD [address] [place] [address] PCP - General 07/27/11 12/31/23 documented as of this encounter
--- OUTSIDE RECORDS SUMMARY | 2024-02-28 16:47 | XMS_ITS | Encounter Summary ---
Author Organization [facility] Address [address] [place] [address] Care Team Providers Care Fur Vault Attendant Name Role Phone Jason Batres MD Primary Care Provi margarita Reason for Visit * Reason Comments Foot Problem Encounter Details Date Type Department Care Team (Latest Contact Info) Description 08/09/2020 11:00 EDT Office Visit [facility] - [address] [address] Lindsay Carrillo NP [address] [place] [address] Status post amputation of right foot through metatarsal bone ([facility]) (Primary Dx); Type 2 diabetes mellitus with polyneuropathy ([facility]) Social History Tobacco Use Types Packs/Day Years [...] Progress Notes * Lindsay Carrillo APRN - 08/09/2020 1100 EDT Diagnosis: ICD-10-CM ICD-9-CM 1. Status post amputation of right foot through metatarsal bone ([facility]) Z89.431 V49.73 2. Type 2 diabetes mellitus with polyneuropathy ([facility]) E11.42 250.60 357.2 Jeff Scott is being seen today for Foot Problem . He was originally sent in consultation from Batres SUBJECTIVE: Jeff Scott is a 59 y.o. male with type 2 diabetes mellitus s/p right transmetatarsalamputation who returns for a diabetic foot follow-up. He is regularly followed in clinic by Dr. Gonzales. His amputation site continues to remain healed. He is very pleased by this. He still has not picked up his shoes from [employer]. He was fitted for them and was told they were in this past week, he just hasn't been able to get over there to pick them up. He is still wearing his cast shoe. Pain Rating: Pain Orientation : Right Pain Location: Foot Numeric Pain Level (Scale 1-10): 5 Patient Active Problem List Diagnosis Date Noted ??? Diabetic foot infection ([facility]) 10/04/2019 Priority: Medium ??? Hyperplastic polyp of descending colon 08/01/2018 Priority: Medium ??? Type 2 diabetes mellitus with diabetic polyneuropathy, with long-term current use of insulin ([facility]) 06/24/2018 Priority: Medium ??? Acute osteomyelitis of phalanx of foot ([facility]) 03/23/2016 Priority: Medium ??? Hypothyroidism 01/22/2013 Priority: Medium ??? Acute osteomyelitis of right ankle or foot ([facility]) 10/03/2019 ??? Osteoarthritis of left hip 07/06/2014 ??? 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 Arthritis ??? Back pain ??? Diabetes mellitus ([facility]) ??? Hypothyroidism ??? Wears glasses Past [...] 60 Tab 0 No current facility-administered medications for this visit. No Known Allergies OBJECTIVE: The patient is in no acute distress. He appears normal with appropriate mood and affect. He is alert and oriented to person, place, and time. He is a good historian. Exam of the right foot/ankle: Cardiovascular: Capillary refill is normal and pedal pulses are palpable Neurological: protective sensation is decreased Swelling: none Skin exam: S/p transmetatarsal amputation, well healed. There is mild hyperkeratotic tissue build up along the plantar aspect of the stump. This was pared down today. No open areas of concern. Xrays obtained today: none ASSESSMENT: 1. Status post amputation of right foot through metatarsal bone ([facility]) 2. Type 2 diabetes mellitus with polyneuropathy ([facility]) No orders of the defined types were placed in this encounter. PLAN: Mr. Scott presents today in follow-up for his right foot ulcer s/p transmetatarsal amputation. The ulcer continues to remain closed. This is very reassuring. He was fitted for his new shoes and insoles at [facility] in May but has still not received them. He was told they were in and hasplans to pick them up this week. Once he gets them, he can slowly start to increase his activity. He understands that he will need to break in the shoes by wearing them around the house at first. We again discussed that ulcers can recur during this break in period and he really needs to check his feet daily for any concerns. He will follow-up in clinic with Dr. Gonzales in the next month, sooner should any additional concerns arise. -X-rays for next visit:none -Follow up: Return for follow-up with Dr. Gonzales in 1 month (around 09/15/2020) Patient voices understanding and agrees with the [...] right foot through metatarsal bone ([facility] Primary Type 2 diabetes mellitus with polyneuropathy ([facility]) Type II or unspecified type diabetes mellitus with neurological manifestations, not stated as uncontrolled documented in this encounter Care Teams Fur Vault Attendant Relationship Specialty Start Date End Date Jason Batres MD [address] [place] [id number] PCP - General 07/27/11 12/31/23 documented as of this encounter
--- OUTSIDE RECORDS SUMMARY | 2024-02-28 16:47 | XMS_ITS | Encounter Summary ---
Author Organization [facility] Address [address] [place] [address] Care Team Providers Care Endoscopy Technican Name Role Phone Jason Batres MD Primary Care Provi margarita Reason for Visit * Reason Onset Date Comments Medications Refill 2020 Encounter Details Date Type Department Care Team (Late st Contact Info) Description 2020 Refill Jason Batres MD, PC [address], [place] [phone] Jason Batres MD [address] [place] [phone] Medications Refill Social History Tobacco Use [...] Pain. Daily Max: 100 mg 45 Tablet 2020 01/21/2021 documented in this encounter Plan of Treatment Not on file documented as of this encounter Visit Diagnoses Not on filedocumented in this encounter Discontinued Medications Medication Sig Discontinue Reason Start Date End Da te traMADol (ULTRAM) 50 mg tablet Take 1 Tablet by mouth 2 times daily as needed for Pain. Daily Max: 100 mg Reorder 11/17/2020 2020 documented as of this encounter Care Teams Endoscopy Technican Relationship Specialty Start Date End Date Jason Batres MD [address] [place] [id number] PCP - General 07/27/11 12/31/23 documented as of this encounter
--- OUTSIDE RECORDS SUMMARY | 2024-02-28 16:47 | XMS_ITS | Encounter Summary ---
Author Organization [facility] Address [address] [place] [address] Care Team Providers Care Loader Demolder Name Role Phone Jason Batres MD Primary Care Provi margarita Reason for Visit * Auth/Cert Specialty Diagnoses / Procedures [facility] To Contact Diagnoses Ketoacidosis Diabetic foot infection ([facility]) Type 2 diabetes mellitus without complication, with long-term current use of insulin ([facility]) Deep vein thrombosis (DVT) of proximal vein of left lower extremity, unspecified chronicity ([facility]) Referral ID Status Reason Start Date Expiration Date Visits Re quested Visits Authorized [id number] 1 1 Encounter Details Date Type Department Care Team (Late st Contact Info) Description 12/29/2020 18:16 EDT Anesthesia Event [facility] [address] [place] [address] Jaxon Ibanez MD [address] [place] [phone] [facility] [address] [phone] Anesthesia Record Procedure Summary Procedure Name Responsible Anesthesiologist Anesthesia Start Time Anesthesia Stop Time AMPUTATION, LOWER EXTREMITY, THROUGH DISTAL TIBIA AND FIBULA (Right: Lower Leg) Jaxon Ibanez MD 10181512/29/202101 Events Date Time Event Comment 12/29/20201815 An Start The patient was re-evaluated immediately before moderate or deep sedation use, before anesthesia induction, or before the anesthesia procedure. 1815 An Start Data 182 An Induction The patient was reevaluated immediately before moderate or deep sedation use and before anesthesia induction. 182 Suraj FS 89 1830 An Intubation 184 Anesthesia Ready 185 An Tourn Inflated Tourniquet Inflated - Location = right leg Pressure = 300 mmHg 1855 Suraj incision 1938 An Tourn Deflated Tourniquet Deflated - Duration = 42 minutes 2005 Primary Handoff Primary Anes thesia Provider relieved. Anesthesia care handoff involved joint review of the surgical site and planned procedure, significant past medical history, intraoperative course including but not limited to airway management, anesthetic maintenance, monitors, IV access, fluid management, and postoperative plan. 2041 An Extubation 2100 Handoff to RN I completed my handoff to the receiving nurse during which we: 1. Identified the patient 2. Identified the responsible provider 3. Reviewed the pertinent medical history 4. Discussed the surgical course 5. Reviewed intra-op anesthesia management and issues during anesthesia 6. Set expectations for post-procedure period 7. Allowed opportunity for questions and acknowledgement of understanding. 2101 An Stop 2102 an stop data Meds Name Total midazolam 1 mg/mL 2 mL vial 3 mg bupivacaine (PF) 0.5 % injection 40 mL fentanyl citrate (PF) injection 200 mcg dexmedetomidine injection - vial 55 mcg HYDROmorphone vial 2 mg/mL 0.6 mg ketAMINE 5 mL prefilled syringe 20 mg ondansetron (PF) (ZOFRAN) injection 4 mg lidocaine 2% (PF) injection glass vial 1 00 mg phenylephrine pre-filled syringe 400 mcg propOFol (DIPRIVAN) injection 150 mg rocuronium 10 mg/mL vial 50 mg sugammadex 100 mg/mL 2 mL vial 200 mg lactated ringers (LR) infusion Cannot be calculated ceFAZolin (ANCEF) syringe 2 g 2 g acetaminophen 10 mg/ml 100 mL infusion 1 ,000 mg * Agents Name Insp Sevoflurane Exp Sevoflurane O2 N2O Air * Blood No blood administrations on file. Lines, Drains, and Airways Type Details Placement Removal Wound 12/24/20; 0113; Diab etic ulc; Right, Plantar; (GRICEL, dressing in place, picture in notes); Y; Full thickness; 12/31/20; 2123; Amputation 12/24/20 0113 by Xander Murillo RN 12/31/202123 by Arianne Novoa RN Peripheral IV 12/28/20; 0001; 11/0 04/25; 20; 1.25; B Mock Introcan; Posterior, Right; Hand; Inserted by RN; 2; None; 3.15% Chlorhexidine with IPA; 12/30/20; 0237; Other (Comment) (catheter noted to be out upon hr assessment); No complications, Catheter intact 12/28/20 0001 by Nena Schultz RN 12/30/20 023 by Tonya Ho RN Non-Surgical Airway 12/29/20; 1847 (heike barrett via procedure documentation); 12/29/20; 204112/29/201847 by Penelope Sanz, TOUR MANAGER 12/29/202041 by Jaxon Ibanez MD Peripheral IV 12/29/20; 1849; 18; Protect IV Plus; Left; Wrist; In OR by MD; 1; None; 70% IPA; 12/31/20; 0300; Catheter damage, Leaking, Other (Comment); No complications, Catheter intact, Dressing applied 12/29/201848 by Penelope Sanz, TOUR MANAGER 12/31/20 0300 by Tonya Ho RN Wound 12/29/20; 1857; Inci girish; Anterior, Right; Leg; N; 04/11/22; 0740; Healed 12/29/20 1857 by Jyotsna Lyons RN 04/11/22 0740 by Nguyen Sood RN documented in this [...] hearing? Answer Date of Assessment Author No 12/23/2020 22:00 EDT Nickie Murillo RN * Are you blind or do [...] Nickie Murillo RN documented in this encounter OR Notes * Anesthesia Postprocedure Evaluation - Shamar, Jaxon Iglesias MD - 12/29/20202101 EDT Patient: Jeff Scott Vital signs were reviewed with the recovery nurse. Complete vitals history is available in the Epicflowsheets. Vitals Value Taken Time BP 146/74 12/29/20 2100 Temp 36.8 12/29/202101 Resp 21 12/29/202101 Pulse From Oximetry 88 BPM 12/29/202101 SpO2 98 % 12/29/202101 Vitals shown include unvalidated device data. Last Pain Score - Numeric Pain Level (Scale 1-10): 8 Type of Anesthesia - MAC Anesthesia Post Evaluation Level of consciousness: alert and oriented and awake Temperature status: normothermia Respiratory status: airway patent and face mask Cardiovascular status: appropriate for condition Hydration status: adequate Nausea/Vomiting: none Pain management: adequate Post-Op Assessment: patient tolerated procedure well with no complications Patient participation: able to participate Disposition: inpatient Anesthesia Complications: No apparent anesthesia complications * Anesthesia Procedure Notes - Penelope Sanz CRNA - 12/29/2020 1848 EDT Associated Order(s): Airway Airway Date/Time: 12/29/2020 18:30 Urgency: elective Airway not difficult General Information and Staff Patient location during procedure: OR Resident/TOUR MANAGER: Penelope Sanz CRNA Performed: resident/TOUR MANAGER/AA Indications and Patient Condition Indications for airway management: anesthesia Sedation level: GA Preoxygenated: yes Patient position: sniffing MILS Maintained: Yes Ventilation assessment: 2 - Oral airway inserted Final Airway Details Final airway type: endotracheal airway Successful airway: ETT Cuffed: yes Successful intubation technique: direct laryngoscopy Facilitating devices/methods: intubating stylet Endotracheal tube insertion site: oral Blade: Marsh Blade size: #2 ETT size (mm): 7.0 Cormack-Lehane Classification: grade I - full view of glottis Placement verified by: chest auscultation and capnometry Measured from: lips ETT to lips (cm): 21 Number of attempts at approach: 1 * Anesthesia Procedure Notes - Sharmin Arora DO - 12/29/2020 1555 EDT Associated Order(s): Peripheral Block - Single Shot Peripheral Block - Single Shot Patient location during procedure: pre-op Start time: 12/29/2020 14:55 End time: 12/29/2020 15:20 Staffing Performed: resident/TOUR MANAGER/AA Anesthesiologist: Christopher Cisneros MD Resident/TOUR MANAGER: Sharmin Arora DO Preanesthetic Checklist Completed: patient identified, IV checked, risks and benefits discussed, surgical consent, monitorsand equipment checked, pre-op evaluation and timeout performed Peripheral Block Patient position: supine Prep: ChloraPrep, skin prep agent completely dried prior to procedure, sterile gloves, mask used and subcutaneous lidocaine Patient monitoring: BP cuff, heart rate and continuous pulse ox Block type: adductor canal block and popliteal Laterality: right Injection technique: single-shot Guidance: ultrasound guided Needle Needle type: Mock Needle gauge: 20 G Needle localization: ultrasound guidance Test dose: negative Assessment Injection assessment: negative aspiration for heme, no paresthesia on injection, incremental injection and local visualized surrounding nerve on ultrasound Heart rate change: no Slow fractionated injection: yes Ultrasound Equipment Machine used: SonScayl X-Port (FAH) sterile probe cover Probe did NOT contact body fluids/broken skin. Standard cleaning with recommended disinfectant Reason for block: at surgeon's request, for post-op pain management * Anesthesia Preprocedure Evaluation - Galo Can AA - 12/28/2020 0946 EDT Anesthesia Preprocedure Evaluation Patient Medical History, including Anesthesia History reviewed. Chart and Nursing Notes reviewed, including NPO status and Medication History. Additional ROS/History Findings: 60-year-old male patient with a remote history of craniopharyngeal resection back in 2006, diabetesmellitus, right-sided diabetic foot infections status post amputations in 2019, presents with rightlower extremity including hip pain with finding of right-sided diabetic foot infection and osteomyelitis. Bone culture reveals MSSA and some strep speciesremia. ?? TTE 12/24/20: ??? Right??Ventricle: The right ventricular cavity was [...] IE given limited sensitivity specially with poor images Previous Anesthesia: 10/09/19: R foot transmetatarsal amp : MAC No Known Allergies Review of Systems Past Medical History: Diagnosis Date ??? Arthritis ??? Back pain ??? Diabetes mellitus (HCC) ??? Hypothyroidism ??? Wears glasses Relevant Problems CARDIOVASCULAR (+) Deep vein thrombosis (DVT) of proximal vein of left lower extremity, unspecified chronicity ([facility]) (HCC) ENDO/GI (+) Hypothyroidism (+) Type 2 diabetes mellitus with diabetic polyneuropathy, with long-term current use of insulin ([facility]CMS) (HCC) (+) Type 2 diabetes mellitus without complication, with long-term current use of insulin ([facility]) (HCC) Other (+) Acute osteomyelitis of phalanx of foot ([facility]CC-CMS) (HCC) (+) Acute osteomyelitis of right ankle or foot ([facility]CMS) (HCC) (+) 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 ([facility]) (HCC) Physical Exam Airway Mallampati: I TM distance: >3 FB Neck ROM: full Cardiovascular - normal exam Dental - normal exam Pulmonary - normal exam Abdominal Anesthesia Plan ASA 3 Anesthesia Type - MAC Anesthesia plan and risks discussed. Informed consent obtained from patient (paper consent in chart). PAT Note Notes from 11/28/20 through 12/28/20 No notes of this type exist for this encounter. documented in this encounter Plan of Treatment Not on file documented as of this encounter Procedures Procedure Name Priority Date/Time Associated Diagnosis Comments ANESTHESIA INTUBATION Routine 12/29/2020 18:30 EDT ANESTHESIA PERIPHERAL BLOCK - SINGLE SHOT Routine 12/29/2020 15:55 EDT documented in this encounter Results * AZ AN ELECTIVE ENDOTRACHEAL AIRWAY (12/29/2020 18:30 EDT) Narrative Penelope Sanz CRNA - 12/29/2020 18:30 EDT Penelope Sanz CRNA ? 12/29/2020 18:48 Airway Date/Time: 12/29/2020 18:30 Urgency: elective Airway not difficult General Information and Staff Patient location during procedure: OR Resident/TOUR MANAGER: Penelope Sanz CRNA Performed: resident/TOUR MANAGER/AA Indications and Patient Condition Indications for airway management: anesthesia Sedation level: GA Preoxygenated: yes Patient position: sniffing MILS Maintained: Yes Ventilation assessment: 2 - Oral airway inserted Final Airway Details Final airway type: endotracheal airway Successful airway: ETT Cuffed: yes Successful intubation technique: direct laryngoscopy Facilitating devices/methods: intubating stylet Endotracheal tube insertion site: oral Blade: Marsh Blade size: #2 ETT size (mm): 7.0 Cormack-Lehane Classification: grade I - full view of glottis Placement verified by: chest auscultation and capnometry Measured from: lips ETT to lips (cm): 21 Number of attempts at approach: 1 Bar Harper DO ANESTHESIA ORDERABLES Final Re sult * Peripheral Block - Single Shot (12/29/2020 15:55 EDT) Narrative Sharmin Arora DO - 12/29/2020 15:55 EDT Sharmin Arora DO ? 12/29/2020 15:56 Peripheral Block - Single Shot Patient location during procedure: pre-op Start time: 12/29/2020 14:55 End time: 12/29/2020 15:20 Staffing Performed: resident/TOUR MANAGER/AA Anesthesiologist: Christopher Cisneros MD Resident/TOUR MANAGER: Sharmin Arora DO Preanesthetic Checklist Completed: patient identified, IV checked, risks and benefits discussed, surgical consent, monitors and equipment checked, pre-op evaluation and timeout performed Peripheral Block Patient position: supine Prep: ChloraPrep, skin prep agent completely dried prior to procedure, sterile gloves, mask used and subcutaneous lidocaine Patient monitoring: BP cuff, heart rate and continuous pulse ox Block type: adductor canal block and popliteal Laterality: right Injection technique: single-shot Guidance: ultrasound guided Needle Needle type: Mock Needle gauge: 20 G Needle localization: ultrasound guidance Test dose: negative Assessment Injection assessment: negative aspiration for heme, no paresthesia on injection, incremental injection and local visualized surrounding nerve on ultrasound Heart rate change: no Slow fractionated injection: yes Ultrasound Equipment Machine used: SonoSite X-Port (FAH) sterile probe cover Probe did NOT contact body fluids/broken skin. Standard cleaning with recommended disinfectant Reason for block: at surgeon's request, for post-op pain management us Sharmin Arora DO ANESTHESIA ORDERABLES Final Result documented in this encounter Visit Diagnoses Not on filedocumented in this encounter Administered Medications Inactive Administered Medications - up to 3 most recent administrations Medication Order MAR Action Action Date Dose Rate Site acetaminophen (OFIRMEV) IV solution intravenous, PRN, Starting on Sun12/29/20 at 1941, Until Sun12/29/20 at 2102, Routine, Anesthesia Intraprocedure Given 12/29/2020 19:41 EDT 1,000 mg bupivacaine (PF) (MARCAINE) 0.5% injection renan-neural, PRN, Starting on Sun12/29/20 at 1522, Until Sun12/29/20 at 210, Routine, Anesthesia Intraprocedure Given 12/29/2020 15:22 EDT 40 mL ceFAZolin (ANCEF) syringe 2 g 2 g, intravenous, Administer over 10 Minutes, EMERGENCY COMMUNICATIONS DISPATCHER TO O.R., 1 dose, First dose on Sun12/29/20 at 0700, Routine Given 12/29/2020 18:46 EDT 2 g dexmedeTOMIDine (PRECEDEX) injection perineural injection, PRN, Starting on Sun12/29/20 at 1522, Until Sun12/29/20 at 2102, Routine, Anesthesia Intraprocedure Given 12/29/2020 15:22 EDT 55 mcg fentaNYL citrate (PF) injection intravenous, PRN, Starting on Sun12/29/20 at 1524, Until Sun12/29/20 at 2102, Routine, Anesthesia Intraprocedure Given 12/29/2020 18:45 EDT 50 mcg Given 12/29/2020 18:23 EDT 100 mcg Given 12/29/2020 15:24 EDT 50 mcg HYDROmorphone (DILAUDUD) 2 mg/mL injection intravenous, PRN, Starting on Sun12/29/20 at 1909, Until Sun12/29/20 at 210, Routine, Anesthesia Intraprocedure Given 12/29/2020 19:09 EDT 0.6 mg ketAMINE in NaCl, iso-osmotic (KETALAR) 50 mg/5 mL (10 mg/mL) IV injection intravenous, PRN, Starting on Sun12/29/20 at 1825, Until Sun12/29/20 at 210, Routine, Anesthesia Intraprocedure Given 12/29/2020 18:25 EDT 20 mg lactated ringers (LR) infusion intravenous, FA IP EQF CONTINUOUS PRN FOR ONE STEP MEDS, Starting on Sun12/29/20 at 1816, Until Sun12/29/20 at 210, Routine, Anesthesia Intraprocedure New Bag 12/29/2020 19:47 EDT New Bag 12/29/2020 18:16 EDT lidocaine (PF) 20 mg/mL (2 %) injection intravenous, PRN, Starting on Sun12/29/20 at 1825, Until Sun12/29/20 at 210, Routine, Anesthesia Intraprocedure Given 12/29/2020 18:25 EDT 100 mg midazolam (PF) (VERSED) injection intravenous, PRN, Starting on Sun12/29/20 at 1500, Until Sun12/29/20 at 2102, Routine, Anesthesia Intraprocedure Given 12/29/2020 18:23 EDT 2 mg Given 12/29/2020 15:00 EDT 1 mg ondansetron (PF) (ZOFRAN) injection intravenous, PRN, Starting on Sun12/29/20 at 1939, Until Sun12/29/20 at 210, Routine, Anesthesia Intraprocedure Given 12/29/2020 19:39 EDT 4 mg phenylephrine HCl in 0.9% NaCl injection intravenous, PRN, Starting on Sun12/29/20 at 1941, Until Sun12/29/20 at 2102, Routine, Anesthesia Intraprocedure Given 12/29/2020 19:55 EDT 200 mcg Given 12/29/2020 19:48 EDT 100 mcg Given 12/29/2020 19:41 EDT 100 mcg propOFol (DIPRIVAN) injection intravenous, PRN, Starting on Sun12/29/20 at 1825, Until Sun12/29/20 at 210, Routine, Anesthesia Intraprocedure Given 12/29/2020 18:25 EDT 150 mg rocuronium (ZEMURON) injection intravenous, PRN, Starting on Sun12/29/20 at 1825, Until Sun12/29/20 at 2102, Routine, Anesthesia Intraprocedure Given 12/29/2020 18:25 EDT 50 mg sugammadex (BRIDION) injection intravenous, PRN, Starting on Sun12/29/20 at 204, Until Sun12/29/20 at 2101, Routine, Anesthesia Intraprocedure Given 12/29/2020 20:40 EDT 200 mg documented in this encounter Care Teams Loader Demolder Relationship Specialty Start Date End Date Jason Batres MD [address] [place] [address] PCP - General 07/27/11 12/31/23 documented as of this encounter
--- OUTSIDE RECORDS SUMMARY | 2024-02-28 16:47 | XMS_ITS | Encounter Summary ---
Author Organization [facility] Address [address] [place] [address] Care Team Providers Care Truck Chauffeur Name Role Phone Jason Batres MD Primary Care Provi margarita Reason for Visit * Reason Comments Foot Problem Encounter Details Date Type Department Care Team (Latest Contact Info) Description 12/15/2020 14:00 EDT Office Visit [facility] Foot & Ankle Program - [address] [address] Angelina Gonzales, [facility] [address] [place] [address] Ulcerated, foot, right, limited to breakdown of skin (HCC-CMS) ([facility]) (Primary Dx); Status post amputation of right foot through metatarsal bone ([facility]) (HCC); Type 2 diabetes mellitus with polyneuropathy ([facility]) ([facility]) Social History Tobacco Use Types Packs/Day [...] Progress Notes * Angelina Gonzales, BRENDA - 12/15/2020 1400 EDT Images from the original note were not included. Jeff Scott is a very pleasant 60 y.o. male patient who presents for follow up right foot ulcer. He reports that he has been on his feet more since I last saw him. He was in [place] at a fair for a few days with a friend. He also danced a lot at his son's wedding. He missed his last appointment-he forgot about it when he was in [place]. He does have a little discomfort in the foot. About baseline. H e has not noticed any signs of infection. He has been changing the dressing daily. He denies nausea, vomiting, fever, chills. Patient Active Problem List Diagnosis Date Noted ??? Diabetic foot infection ([facility]) ([facility]) 10/04/2019 ??? Acute osteomyelitis of right ankle or foot ([facility]) ([facility]) 10/03/2019 ??? Hyperplastic polyp of descending colon 08/01/2018 ??? Type 2 diabetes mellitus with diabetic polyneuropathy, with long-term current use of insulin ([facility]) ([facility]) 06/24/2018 ??? Acute osteomyelitis of phalanx of foot ([facility]) ([facility]) 03/23/2016 ??? Hypothyroidism 01/22/2013 ??? Osteoarthritis of left hip 07/06/2014 ??? 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 Arthritis ??? Back pain ??? Diabetes mellitus ([facility]) ??? Hypothyroidism ??? Wears glasses Past Surgical [...] pulses. ??Skin temperature gradient within normal limits. ??Capillary filling time less than 3 seconds to all toes.?Ulcer plantar lateral right forefoot. ??As below. ??Surrounding hyperkeratotic tissue, mild. ??Granular wound base. ??Does not probe deep. ??No undermining. ??No surrounding erythema or edema.??Incision line transmetatarsal amputation well-healed. ??No other ulcerative or preulcerative lesions. ??Manual muscle testing 5 out of 5. ??Gross protective sensation absent. Right plantar foot: ASSESSMENT: 1. Ulcerated, foot, right, limited to breakdown of skin (HCC-CMS) ([facility]) 2. Status post amputation of right foot through metatarsal bone (HCC-CMS) ([facility]) 3. Type 2 diabetes mellitus with polyneuropathy (HCC-CMS) ([facility]) No orders of the defined types were placed in this encounter. PLAN: Mr. Scott presents today for follow-up right foot ulcer plantar lateral transmetatarsal amputation site. No signs of infection. I did debride the wound today, skin and subcutaneous tissue, less than 20 cm??. We discussed that he really needs to be off of his foot more and keep his follow-up appointments to get this to heal. He is going to continue with the daily dressing changes. I will see him back in 3 weeks. He knows to call before then if any problems arise and is happy with this plan. Portions of this document have been prepared with speech recognition software or keyboard data deliverables manager techniques. Minor irregularities or keyboarding misprints may be present documented in this encounter Plan of Treatment Not on file documented as of this encounter Visit Diagnoses Diagnosis Ulcerated, foot, right, limited to breakdown of skin (HCC-CMS)- Primary Status post amputation of right foot through metatarsal bone (HCC-CMS) Type 2 diabetes mellitus with polyneuropathy ([facility]) Type II or unspecified type diabetes mellitus with neurological manifestations, not stated as uncontrolled documented in this encounter Care Teams Truck Chauffeur Relationship Specialty Start Date End Date Jason Batres MD [address] [place] [id number] PCP - General 07/27/11 12/31/23 documented as of this encounter
--- OUTSIDE RECORDS SUMMARY | 2024-02-28 16:47 | XMS_ITS | Encounter Summary ---
Author Organization [facility] Address [address] [place] [address] Care Team Providers Care Intermediate Frame Tender Name Role Phone Jason Batres MD Primary Care Provi margarita Reason for Visit * Reason Comments Foot Problem Encounter Details Date Type Department Care Team (Latest Contact Info) Description 11/16/2020 11:30 EDT Office Visit [facility] Foot & Ankle Program - [address] [address] Angelina Gonzales, [facility] [address] [place] [address] Ulcerated, foot, right, limited to breakdown of skin (HCC-CMS) (Primary Dx); Status post amputation of right foot through metatarsal bone ([facility]); Type 2 diabetes mellitus with polyneuropathy ([facility]) Social History Tobacco Use Types [...] Date Author No 10/04/2019 12:00 FREDERICT Anna Seivlla RN documented in this encounter Progress Notes * Angelina Gonzales, CASSIAM - 11/16/2020 1130 EDT Images from the original note were not included. Jeff Scott is a very pleasant 59 y.o. male patient who presents for follow up right foot ulcer. He reports that he believes it is doing well. He has had a little soreness here. He has not noticed any redness, swelling, drainage. He has been limiting his activity and has just been doing a little bit of walking. He has been wearing his shoe with his custom insole with a toe filler. Overall he isfeeling well today denies nausea, vomiting, fever, chills. Patient Active Problem List Diagnosis Date Noted ??? Diabetic foot infection ([facility]) 10/04/2019 ??? Acute osteomyelitis of right ankle or foot ([facility]) 10/03/2019 ??? Hyperplastic polyp of descending colon 08/01/2018 ??? Type 2 diabetes mellitus with diabetic polyneuropathy, with long-term current use of insulin ([facility]) 06/24/2018 ??? Acute osteomyelitis of phalanx of foot ([facility]) 03/23/2016 ??? Hypothyroidism 01/22/2013 ??? Osteoarthritis of left hip 07/06/2014 ??? 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 Arthritis ??? Back pain ??? Diabetes mellitus ([facility]) ??? Hypothyroidism ??? Wears glasses [...] less than 3 seconds to all toes. ?? Ulcer plantar lateral right forefoot. As below.Surrounding hyperkeratotic tissue, mild. Granular wound base. Does not probe deep. No undermining. No surrounding erythema or edema.??Incision line transmetatarsal amputation well- healed. ??No other ulcerative or preulcerative lesions. ??Manual muscle testing 5 out of 5. ??Gross protective sensation absent. Right plantar lateral foot ulcer: ASSESSMENT: 1. Ulcerated, foot, right, limited to breakdown of skin ([facility]) 2. Status post amputation of right foot through metatarsal bone ([facility]) 3. Type 2 diabetes mellitus with polyneuropathy ([facility]) No orders of the defined types were placed in this encounter. PLAN: Mr. Scott presents today for follow-up right plantar foot ulcer. I pared down the surrounding hyperkeratotic tissue. No signs of infection. He is going to continue with the daily dressing changes-applying Medihoney and gauze. Continue to closely monitor for any signs of infection. Continue to limithis activity. I will see him back in 3 weeks. If no improvement, may consider further offloading with crutches again. He knows to call before then if any problems arise and is happy with this plan. Portions of this document have been prepared with speech recognition software or keyboard data clerk techniques. Minor irregularities or keyboarding misprints may be present documented in this encounter Plan of Treatment Not on file documented as of this encounter Visit Diagnoses Diagnosis Ulcerated, foot, right, limited to breakdown of skin (HCC-CMS)- Primary Status post amputation of right foot through metatarsal bone ([facility]) Type 2 diabetes mellitus with polyneuropathy ([facility]) Type II or unspecified type diabetes mellitus with neurological manifestations, not stated as uncontrolled documented in this encounter Care Teams Intermediate Frame Tender Relationship Specialty Start Date End Date Jason Batres MD [address] [place] [id number] PCP - General 07/27/11 12/31/23 documented as of this encounter
--- OUTSIDE RECORDS SUMMARY | 2024-02-28 16:47 | XMS_ITS | Encounter Summary ---
Author Organization [facility] Address [address] [place] [address] Care Team Providers Care Polygraph Examiner Name Role Phone Jason Batres MD Primary Care Provi margarita Reason for Visit * Reason Onset Date Comments Medications Refill 07/16/2020 Encounter Details Date Type Department Care Team (Late st Contact Info) Description 07/16/2020 Refill Jason Batres MD, [facility] [address] [place], [place] [phone] Jason Batres MD [address] [place] [phone] Medications Refill Social History Tobacco Use [...] Daily Max: 100 mg 60 Tab 07/16/2020 08/19/2020 documented in this encounter Plan of Treatment Not on file documented as of this encounter Visit Diagnoses Not on filedocumented in this encounter Discontinued Medications Medication Sig Discontinue Reason Start Date End Da te traMADol (ULTRAM) 50 mg tablet Take 1 Tab by mouth 2 times daily as needed for Pain. Daily Max: 100 mg Reorder 05/21/2020 07/16/2020 documented as of this encounter Care Teams Polygraph Examiner Relationship Specialty Start Date End Date Jason Batres MD [address] [place] [id number] PCP - General 07/27/11 12/31/23 documented as of this encounter
--- OUTSIDE RECORDS SUMMARY | 2024-02-28 16:47 | XMS_ITS | Encounter Summary ---
Author Organization [facility] Address [address] [place] [address] Care Team Providers Care Target Worker Name Role Phone Jason Batres MD Primary Care Provi margarita Reason for Visit * Reason Comments Foot Problem Encounter Details Date Type Department Care Team (Latest Contact Info) Description 05/25/2020 13:00 EDT Office Visit [facility] - [address] [address] Angelina Gonzales, [facility] [address] [place] [address] Ulcerated, foot, right, with fat layer exposed ([facility]) (Primary Dx); Status post transmetatarsal amputation of foot, right ([facility]); Type 2 diabetes mellitus with diabetic polyneuropathy, with long-term current use of insulin (HCC-CMS) Social History Tobacco Use Types Packs/Day [...] this encounter Progress Notes * Angelina Gonzales, DPM - 05/25/2020 1300 EDT Jeff Scott is a very pleasant 59 y.o. male patient who presents for follow up right foot ulcer status post transmetatarsal amputation. He believes it is doing very well and is healed. [facility] has beencoming for dressing changes and last came yesterday. He has been staying off the foot for the most part, using the crutches as much as he is able and wearing the surgical shoe. He did get fitted for the new shoes and insoles about 2 weeks ago and is due to get them in the next couple weeks. Overallhe is feeling well today. Denies pain in the foot. Denies nausea, vomiting, fever, chills. Patient Active Problem List Diagnosis Date Noted ??? Diabetic foot infection ([facility]) 10/04/2019 Priority: Medium ??? Acute osteomyelitis of right ankle or foot ([facility]) 10/03/2019 Priority: Medium ??? Hyperplastic polyp of descending colon 08/01/2018 Priority: Medium ??? Type 2 diabetes mellitus with diabetic polyneuropathy, with long-term current use of insulin ([facility]) 06/24/2018 Priority: Medium ??? Acute osteomyelitis of phalanx of foot ([facility]) 03/23/2016 Priority: Medium ??? Hypothyroidism 01/22/2013 Priority: Medium ??? Osteoarthritis of left hip 07/06/2014 ??? 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 Arthritis ??? Back pain ??? Diabetes mellitus ([facility]) ??? Hypothyroidism ??? Wears glasses Past [...] foot transmetatarsal amputation. ??Ulcer dorsally??well healed.?Xerosis dorsally, minimal.??Ulcer plantarly- healed. ??No callusbuild up. ??No surrounding erythema or edema. ??No pain on probing. ??No fluctuance. ??Foot is ableto get to 90 degrees at the ankle. ??No pain with range of motion of the ankle joint. ??Manual muscle testing 5 out of 5. ??Gross protective sensation absent. ASSESSMENT: 1. Ulcerated, foot, right, with fat layer exposed ([facility]) 2. Status post transmetatarsal amputation of foot, right ([facility]) 3. Type 2 diabetes mellitus with diabetic polyneuropathy, with long-term current use of insulin ([facility]) No orders of the defined types were placed in this encounter. PLAN: Mr. Scott presents today for follow-up right foot ulcer status post transmetatarsal amputation. This has healed. We discussed these findings. At this point we will discontinue the dressing changes. He is going to just wear a sock with the surgical shoe. He is going to continue to stay off the foot with the crutches and wear the surgical shoe until his new shoes and insoles are back and he is fitted for these. Once he gets these, he can slowly start to increase his activity. We discussed just starting with breaking the shoes in around the house. We did discuss that ulcer can recur and new ulcers can occur so he really needs to check his feet daily for any concern and call immediately. I encouraged him to apply lotion to the foot daily. I emphasized the importance of slowly starting to increase his activity. I encouraged him to continue to work on his blood glucose control. We went over this in detail today. I will have him come back in 1 month to see one of my colleagues while I am outon leave, to make sure he is making the transition back into shoes without any issues. I will then see him back in approximately the 6-month shweta for high risk foot check. He knows to call with any questions or concerns prior to follow-up and is happy with this plan. Instructions for [facility]: Okay to discontinue services. Wound has healed. He is going to simply apply asock with the surgical shoe and continue to stay off the foot until his diabetic shoes come in. Thank you. Portions of this document have been prepared with speech recognition software or keyboard information technology data analyst techniques. Minor irregularities or keyboarding misprints may be present * Herlinda Navarro LPN - 05/25/2020 1300 EDT Call to [facility] with wound care instructions, left message for Yumi. Note is in epic. HERLINDA NAVARRO LPN documented in this encounter Plan of Treatment Not on file documented as of this encounter Visit Diagnoses Diagnosis Ulcerated, foot, right, with fat layer exposed (HCC-CMS)- Primary Status post transmetatarsal amputation of foot, right ([facility]) Type 2 diabetes mellitus with diabetic polyneuropathy, with long-term current use of insulin ([facility]) documented in this encounter Care Teams Target Worker Relationship Specialty Start Date End Date Jason Batres MD [address] [place] [id number] PCP - General 07/27/11 12/31/23 documented as of this encounter
--- OUTSIDE RECORDS SUMMARY | 2024-02-28 16:47 | XMS_ITS | Encounter Summary ---
Author Organization [facility] Address [address] [place] [address] Care Team Providers Care Therapy Administrative Assistant Name Role Phone Jason Batres MD Primary Care Provi margarita Reason for Visit * Reason Comments Leg Pain Encounter Details Date Type Department Care Team (Late st Contact Info) Description 08/12/2020 10:00 EDT Office Visit Jason Batres MD, [facility] [address] [place], [place] [phone] Carmelita Hogue, LEAD GAME DESIGNER [address] [place] [phone] Left leg pain (Primary Dx) Social History Tobacco Use [...] this encounter Progress Notes * Carmelita Hogue, LEAD GAME DESIGNER - 08/12/2020 1000 EDT Subjective: Patient ID: Jeff Scott is an 59 y.o. male. Chief Complaint Patient presents with ??? Leg Pain HPI Jeff woke up one week ago with severe left calf pain. He says the pain is over the top. No knowninjury. He feels his leg is swollen. Also has pain in his left hip. No history of blood clot. He has been taking advil with no relief. Patient Active Problem List Diagnosis ??? Late [...] Known Allergies ROS - See HPI Objective: There were no vitals taken for this visit. Physical Exam Constitutional: Comments: Distressed, crying, appears to be in pain Musculoskeletal: Comments: Left leg: Mild calf swelling and tightness. Tenderness of posterior knee and medial aspect of calf. No erythema. Assessment: Left leg pain Plan: Jeff was seen today for leg pain. Diagnoses and all orders for this visit: Left leg pain Left leg pain- Worrisome for DVT or ruptured bakers cyst, differential also includes radicular pain Recommended an urgent US to evaluate for DVT Jeff does not have transportation, so will call an ambulance to bring him to the ED for evaluation. Carmelita Hogue APRN documented in this encounter Plan of Treatment Not on file documented as of this encounter Visit Diagnoses Diagnosis Left leg pain- Primary Pain in limb documented in this encounter Care Teams Therapy Administrative Assistant Relationship Specialty Start Date End Date Jason Batres MD [address] [place] [id number] PCP - General 07/27/11 12/31/23 documented as of this encounter
--- OUTSIDE RECORDS SUMMARY | 2024-02-28 16:47 | XMS_ITS | Encounter Summary ---
Author Organization [facility] Address [address] [place] [address] Care Team Providers Care Ice Seller Name Role Phone Jason Batres MD Primary Care Provi margarita Encounter Details Date Type Department Care Team (Late st Contact Info) Description 05/26/2020 15:[address] [facility] [address] [place] [address] Social History Tobacco Use Types Packs/Day Years [...] PF 0.3 ML IM (16 YRS+) 1 05/26/2020 documented in this encounter Care Teams Ice Seller Relationship Specialty Start Date End Date Jason Batres MD [address] [place] [address] PCP - General 07/27/11 12/31/23 documented as of this encounter
--- OUTSIDE RECORDS SUMMARY | 2024-02-28 16:47 | XMS_ITS | Encounter Summary ---
Author Organization [facility] Address [address] [place] [address] Care Team Providers Care Ocular Care Aide Name Role Phone Jason Batres MD Primary Care Provi margarita Reason for Visit * Reason Comments Follow-up right foot Encounter Details Date Type Department Care Team (Late st Contact Info) Description 05/20/2020 11:00 EDT Office Visit Jason Batres MD, [facility] [address] [place], [place] [id number] Jason Batres MD [address] [place] [address] Type 2 diabetes mellitus with diabetic polyneuropathy, with long-term current use of insulin ([facility]) (Primary Dx); Opioid use Social History Tobacco Use Types Packs/Day Years [...] Sign Reading Time Taken Comments Blood Pressure 114/68 05/20/2020 1052 EDT Pulse 98 05/20/2020 1052 EDT Temperature 36.3 ??C (97.4 ??F) 05/20/2020 1052 EDT Respiratory Rate - - Oxygen Saturation 92% 05/20/2020 1052 EDT Inhaled Oxygen Concentration - - Weight 120.7 kg (266 lb) 05/20/2020 1052 EDT Height 188 cm (6' 2) 05/20/2020 1052 EDT Body Mass Index 34.15 05/20/2020 1052 EDT documented in this encounter Functional Status [...] Entry Date Author No 10/04/2019 12:00 Anna tSephens RN documented in this encounter Progress Notes * Jason Batres MD - 05/20/2020 1100 EDT Subjective: Patient ID: Jeff Scott is an 59 y.o. male. Chief Complaint Patient presents with ??? Follow-up right foot HPI Jeff is estatic because his food has healed. Home health comes Sunday, Sunday, and Sunday to rebandae and clean it. He has continued to see Dr. Gonzales as well and she is pleased with his progress and it is almost healed. He goes back again next Sunday. He saw [facility] last week for a diabetic shoe- he was fitted for this. As far as his diabetes-he takes his pills and three shots religiously. He deos forget the lantus.His dose is 15-20 with meals and 50 of lantus He does continue on tramadol as his foot still throbs- the tramadol helps- he uses at lunch and before bed. We discussed that this is OK, but as It has been three months he needs to fill out some paperwork. I showed him this and he wanted to take it home to have time to review. Social Current Outpatient Medications on File Prior [...] 60 Tab 1 No current facility-administered medications on file prior to visit. No Known Allergies Review of Systems Respiratory: Negative for shortness of breath. Cardiovascular: Negative for chest pain. - See HPI Objective: BP 114/68 Pulse 98 Temp 36.3 ??C (97.4 ??F) (Temporal) Ht 188 cm (74) Wt (!) 120.7 kg (266lb) SpO2 92% BMI 34.15 kg/m?? Physical Exam Constitutional: General: He is not in acute distress. Appearance: He is well-developed and well-nourished. Neck: Comments: No carotid bruits Cardiovascular: Rate and Rhythm: Normal rate and regular rhythm. Heart sounds: Normal heart sounds. No murmur. Pulmonary: Effort: Pulmonary effort is normal. Breath sounds: Normal breath sounds. Neurological: Mental Status: He is alert and oriented to person, place, and time. Psychiatric: Mood and Affect: Mood and affect normal. Assessment: Plan: 1. Diabetes Will check A1C today We discussed ways to make sure he takes his PM dose of lantus He will try keeping it by the bed at night so he takes ie before bed 2. Diabetic ulcer Continues to improve He is being fitted for a diabetic shoe and he has follow up with Dr. oGnzales 3. Chronic pain Refill tramadol but I also had him sign informed consent and a contract- bue he took this home to review more closely At follow up visit- will need COMM, ROS, functional eval I spent 30 minutes of face-face time with the patient, over half of it was in counseling Jason Batres MD documented in this encounter Plan of Treatment Not on file documented as of this encounter Procedures Procedure Name Priority Date/Time Associated Diagnosis Comments COMPLETE BLOOD COUNT Routine 05/20/2020 12:24 EDT Type 2 diabetes mellitus with diabetic polyneuropathy, with long-term current use of insulin ([facility]) HEMOGLOBIN A1C Routine 05/20/2020 12:24 EDT Type 2 diabetes mellitus with diabetic polyneuropathy, with long-term current use of insulin ([facility]) LIPID PROFILE (INCLUDES CHOLESTEROL, TRIGLYCERIDES, HDL, LDL) Routine 05/20/2020 12:24 EDT Type 2 diabetes mellitus with diabetic polyneuropathy, with long-term current use of insulin ([facility]) COMPREHENSIVE METABOLIC PANEL (CMP) Routine 05/20/2020 12:24 EDT Type 2 diabetes mellitus with diabetic polyneuropathy, with long-term current use of insulin ([facility]) documented in this encounter Results * LIPID PROFILE (INCLUDES CHOLESTEROL, TRIGLYCERIDES, HDL, LDL) (05/20/2020 12:24 EDT) Cholesterol 164 See Note mg/dL 05/20/2020 19:15 [facility] Comment: Acceptable: ?<200 mg/dL Borderline High: 200-239 mg/dL High: ?> or = 240 mg/dL HDL 49 See Note mg/dL 05/20/2020 19:15 [facility] Comment: Low: ? <40 mg/dL Normal: ??40-60 mg/dL High: ?>60 mg/dL LDL, Calculated 78 See Note mg/dL 05/20/2020 19:15 [facility] Comment: Optimal: ? <100 mg/dL Near Optimal: ?100-129 mg/dL Borderline High: 130-159 mg/dL High: ?160-189 mg/dL Very High: ? > or = 190 mg/dL Triglyceride 187 See Note mg/dL 05/20/2020 19:15 [facility] Comment: Normal: ? <150 mg/dL Borderline High: ??150 - 199 mg/dL High: ? 200 - 499 mg/dL Very High: ?> or = 500 mg/dL Chol/HDL Ratio 3.3 See Note 05/20/2020 19:15 [facility] Comment:No reference range h as been established for CHOL/HDL ratio. Non HDL Cholesterol 115 See Note mg/dL 05/20/2020 19:15 [facility] Comment: Desirable: ?<130 mg/dL Borderline High: ??130-159 mg/dL High: ? 160-189 mg/dL Very High: ?> or = 190 mg/dL Blood VENOUS BLOOD / Unknown Venipuncture / Unknown 05/20/2020 12:24 EDT 05/20/2020 18:54 EDT us Jason Batres MD CHEMISTRY & BLOOD G ORDERABLES Final Result Performing Organization Address City/[facility]/ZIP Co de Phone Number [facility] [address] [place] [address] * COMPLETE BLOOD COUNT (05/20/2020 12:24 EDT) WBC 8.24 4.00 - 10.40 K/cmm 05/20/2020 19:40 EDT [facility] RBC 5.22 4.36 - 5.78 M/cmm 05/20/2020 19:40 EDT [facility] Hemoglobin 16.1 13.8 - 17.3 gm/dL 05/20/2020 19:40 EDT [facility] HCT 47.2 39.5 - 50.2 % 05/20/2020 19:40 [facility] MCV 90 81 - 95 fl 05/20/2020 19:40 T [facility] MCH 30.8 27.6 - 33.0 pg 05/20/2020 19:40 T [facility] MCHC 34.1 32.8 - 36.4 gm/dL 05/20/2020 19:40 [facility] RDW-CV 12.6 <14.2 % 05/20/2020 19:40 [facility] RDW-SD 41.2 <46.0 fl 05/20/2020 19:40 [facility] PLT 225 141 - 377 K/cmm 05/20/2020 19:40 [facility] MPV 12.1 9.5 - 12.7 fl 05/20/2020 19:40 [facility] Blood VENOUS BLOOD / Unknown Venipuncture / Unknown 05/20/2020 12:24 EDT 05/20/2020 18:54 EDT us Jason Batres MD HEMATOLOGY & PF4 OR DERABLES Final Result Performing Organization Address City/[facility]/ZIP Co de Phone Number [facility] [address] [place] [id number] * (ABNORMAL) COMPREHENSIVE METABOLIC PANEL (CMP) (05/20/2020 12:24 EDT) Sodium 141 136 - 145 mEq/L 05/20/2020 19:15 [facility] Potassium 5.2(H) 3.5 - 5.0 mEq/L 05/20/2020 19:15 [facility] Chloride 99 96 - 110 mEq/L 05/20/2020 19:15 [facility] CO2 Total 21(L) 22 - 32 mEq/L 05/20/2020 19:15 [facility] Glucose 292(H) 70 - 100 mg/dL 05/20/2020 19:15 [facility] BUN 14 10 - 26 mg/dL 05/20/2020 19:15 [facility] Creatinine 0.72 0.66 - 1.25 mg/dL 05/20/2020 19:15 [facility] eGFR 103 >60 mL/min/1.7 3m2 05/20/2020 19:15 [facility] Comment:eGFR calculated sarahi krishnan CKD-EPI equation for non- Americans. Multiply eGFR by 1.16 for patients. Total Protein 8.0 6.3 - 8.2 g/dL 05/20/2020 19:15 [facility] Albumin 4.8 3.4 - 4.9 g/dL 05/20/2020 19:15 [facility] Alkaline Phosphatase 89 38 - 126 U/L 05/20/2020 19:15 [facility] AST 30 15 - 46 U/L 05/20/2020 19:15 [facility] ALT 27 <50 U/L 05/20/2020 19:15 [facility] Bilirubin, Total 0.7 <1.4 mg/dL 05/21/19 19:15 [facility] Calcium 10.3 8.5 - 10.5 mg/dL 05/20/2020 19:15 [facility] Calculated Calcium 9.7 8.5 - 10.5 mg/dL 05/20/2020 19:15 EDT [facility] Blood VENOUS BLOOD / Unknown Venipuncture / Unknown 05/20/2020 12:24 EDT 05/20/2020 18:54 EDT Jason Batres MD CHEMISTRY & BLOOD G ORDERABLES Final Result Performing Organization Address [facility]/ZIP Co de Phone Number [facility] [address] [place] [address] * (ABNORMAL) HEMOGLOBIN A1C (05/20/2020 12:24 EDT) Hemoglobin A1c 14.8(H) <5.7 % 05/21/2020 10:15 EDT [facility] Comment: Glycemic Status References: Normal: ??<5.7% Pre-Diabetes: ??5.7% - 6.4% Diagnostic of Diabetes: ??> or = 6.5% (if confirmed) Goals for glycemic control in diabetics (ADA 2017): <7.0% target for non adults with diabetes. <7.5% target for children and adolescents with Type I Diabetes. More or less stringent targets may be appropriate for individual patients. Est Avg Glucose 378 mg/dL 10:15 EDT [facility] Comment:The eAG represents t he A1c result expressed as average glucose in mg/dL. Blood VENOUS BLOOD / Unknown Venipuncture / Unknown 05/20/2020 12:24 EDT 05/20/2020 18:54 EDT Jason Batres MD CHEMISTRY & BLOOD G ORDERABLES Final Result Performing Organization Address [facility]/ZIP Co de Phone Number [facility] [address] [place] [address] documented in this encounter Visit Diagnoses Diagnosis Type 2 diabetes mellitus with diabetic polyneuropathy, with long-term current use of insulin ([facility])- Primary Opioid use documented in this encounter Care Teams Ocular Care Aide Relationship Specialty Start Date End Date Jason Batres MD [address] [place] [address] PCP - General 07/27/11 12/31/23 documented as of this encounter
--- OUTSIDE RECORDS SUMMARY | 2024-02-28 16:48 | XMS_ITS | Encounter Summary ---
Author Organization [facility] Address [address] [place] [address] Care Team Providers Care Mortar Maker Name Role Phone Jason Batres MD Primary Care Provi margarita Encounter Details Date Type Department Care Team (Latest Contact Info) Description 02/03/2020 Travel Social History Tobacco Use Types Packs/Day [...] have Coronavirus / COVID-19? No / Unsure 02/03/2020 13:23 EST documented as of this encounter Functional Status * Are you deaf or do you have serious difficulty hearing? Answer Date of Assessment Author No 10/04/2019 12:00 Anna Stephnes, RN * Are you blind or do you have serious difficulty seeing, even when wearing glasses? Answer Date of Assessment Author No 10/04/2019 12:00 Anna Stephens RN * Do you have serious difficulty walking or climbing stairs? (5 years old or older) Answer Date of Assessment Author Yes 10/04/2019 12:00 Anna Stephnes RN * Do you have difficulty dressing [...] on filedocumented in this encounter Care Teams Mortar Maker Relationship Specialty Start Date End Date Jason Batres MD [address] [place] [address] PCP - General 07/27/11 12/31/23 documented as of this encounter
--- OUTSIDE RECORDS SUMMARY | 2024-02-28 16:48 | XMS_ITS | Encounter Summary ---
Author Organization [facility] Address [address] [place] [address] Care Team Providers Care Executive Administrative Assistant Name Role Phone Jason Batres MD Primary Care Provi margarita Reason for Visit * Reason Comments Foot Problem Encounter Details Date Type Department Care Team (Latest Contact Info) Description 11/28/2019 10:00 EDT Office Visit [facility] - [address] [address] Angelina Gonzales [facility] [address] [place] [address] Status post transmetatarsal amputation of right foot ([facility]) (Primary Dx); Type 2 diabetes mellitus with diabetic polyneuropathy, with long-term current use of insulin ([facility]) Social History Tobacco Use Types Packs/Day Years [...] have Coronavirus / COVID-19? No / Unsure 11/14/2019 10:15 EDT documented as of this encounter Functional [...] Progress Notes * Angelina Gonzales DPM - 11/28/2019 1000 EDT Images from the original note were not included. Jeff Scott is a very pleasant 58 y.o. male patient who presents for follow up 7 weeks status post left transmetatarsal amputation with dorsal debridement and wound VAC application. He presents today from [facility] and rehab. He reports that he has been doing well there. They have been changing the dressing daily. He has been staying off of the foot. He has been working with physical therapy, but uses a walker when he does this. He did finish his antibiotics and have the PICC line pulled. Overall he is feeling well today denies any nausea, vomiting, fever, chills. He denies any painin the foot. Patient Active Problem List Diagnosis Date Noted ??? Diabetic foot infection ([facility]) 10/04/2019 Priority: Medium ??? Acute osteomyelitis of right ankle or foot ([facility]) 10/03/2019 Priority: Medium ??? Hyperplastic polyp of descending colon 08/01/2018 Priority: Medium ??? Type 2 diabetes mellitus with diabetic polyneuropathy, with long-term current use of insulin ([facility]) 06/24/2018 Priority: Medium ??? Acute osteomyelitis of phalanx of foot ([facility]) 03/23/2016 Priority: Medium ??? Hypothyroidism 01/22/2013 Priority: Medium ??? Osteoarthritis of left hip 07/06/2014 ??? 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 Arthritis ??? Back pain ??? Diabetes mellitus ([facility]) ??? Hypothyroidism ??? Wears glasses [...] Fever. ??? atorvastatin (LIPITOR) 20 mg tablet TAKE ONE TABLET BY MOUTH ONE TIME DAILY 90 Tab 2 ??? bisacodyL (DULCOLAX) 10 mg suppository [...] needed (glucose monitoring). 1 Each 0 ??? ibuprofen (MOTRIN) 200 mg tablet Take 800 mg by mouth daily. ??? insulin aspart U-100 (NOVOLOG FLEXPEN) 100 unit/mL (3 mL) injectable pen Inject 10 Units into the skin 3 times daily with meals. 2 Box 3 ??? insulin glargine (LANTUS SOLOSTAR) 100 unit/mL (3 mL) injection pen Inject 45 Units into the skin at bedtime. 2 Box 2 ??? lancets Test BID. 100 Each 1 ??? levothyroxine (SYNTHROID) 112 mcg tablet Take 1 Tab by mouth daily. 90 Tab 1 ??? magnesium hydroxide (MILK OF MAGNESIA) 400 mg/5 mL suspension Take 30 mL by mouth daily as needed. ??? metFORMIN (GLUCOPHAGE) 500 mg tablet Take 500 mg by mouth 2 times daily. ??? methocarbamoL (ROBAXIN) 750 mg tablet Take 1 Tab by mouth 4 times daily. 30 Tab 0 ??? oxyCODONE (ROXICODONE) 5 mg immediate release tablet Take 1-2 Tabs by mouth every 4 hours as needed for Pain. Daily Max: 60 mg 30 Tab 0 ??? sodium chloride 0.9 %, flush, flush [...] 1 Enema rectally daily as needed. ??? traMADoL (ULTRAM) 50 mg tablet Take 1 Tab by mouth every 6 hours as needed for Pain. Daily Max:200 mg 30 Tab 0 No current facility-administered medications for this visit. No Known Allergies Review of Systems A ten point review of systems was performed. Pertinent positives are listed below, all others are negative. Vital signs: vitals were not taken for this visit. PHYSICAL EXAM: General:??AO x 3, NAD Lower extremity:??RLE:??Status post transmetatarsal amputation. ??Plantar flap well healed, as pictured below.?Dorsal debridement site with good granulation tissue, as below. Filling in well.??No purulence. ??No surrounding erythema. ??No malodor or necrosis.??No pain on probing. No exposed bone. Able to flex the foot to 90 degrees at the ankle. Gross protective sensation diminished. ASSESSMENT: 1. Status post transmetatarsal amputation of right foot ([facility]) 2. Type 2 diabetes mellitus with diabetic polyneuropathy, with long-term current use of insulin ([facility]) No orders of the defined types were placed in this encounter. PLAN: Mr. Scott presents today for follow-up 7-weeks status post right transmetatarsal amputation with dorsal debridement and wound VAC application, date of surgery 10/09/2019. Plantar flap remains well-healed. Dorsal debridement site continues to fill in well. No probe to bone. Good granular wound base. Smaller than last visit. We discussed these findings. He is going to continue nonweightbearing and elevation. He is going to continue with daily dressing changes. Instructions were written to change the dressing daily. Apply wound gel to dorsal foot wound. Apply a well-padded gauze dressing, Cem bandage. I am going to see him back in approximately 2 weeks. If doing well then, will consider transitioning into walking in a walking boot. He knows to call with any questions prior to follow- up and is happy with this plan. Portions of this document have been prepared with speech recognition software or keyboard data operations director techniques. Minor irregularities or keyboarding misprints may be present documented in this encounter Plan of Treatment Not on file documented as of this encounter Visit Diagnoses Diagnosis Status post transmetatarsal amputation of right foot ([facility])- Primary Type 2 diabetes mellitus with diabetic polyneuropathy, with long-term current use of insulin ([facility]) documented in this encounter Care Teams Executive Administrative Assistant Relationship Specialty Start Date End Date Jason Batres MD [address] [place] [address] PCP - General 07/27/11 12/31/23 documented as of this encounter
--- OUTSIDE RECORDS SUMMARY | 2024-02-28 16:48 | XMS_ITS | Encounter Summary ---
Author Organization [facility] Address [address] [place] [address] Care Team Providers Care Domestic Violence Counselor Name Role Phone Jason Batres MD Primary Care Provi margarita Reason for Visit * Reason Onset Date Comments Appointment Related 03/16/2020 Encounter Details Date Type Department Care Team (Late st Contact Info) Description 03/16/2020 Telephone Jason Batres MD, [facility] [address] [place], [place] [id number] Jason Batres MD [address] [place] [address] Appointment Related Social History Tobacco [...] Telephone Encounter - Jason Batres MD - 03/16/2020 1451 EST Noted, I did end up taling to Jeff on 03/02/20- so he had a visit but he will need a visit at least every 3 months if he is still on tramadol. I ill follow his tramadol use as he should be decreasing it soon Jason Batres MD * Telephone Encounter - Keyla Rhodes - 03/16/2020 1411 EST Nguyen returned your call from a while ago about Jeff missing an apt. He had another apt that day and was probably getting ready to leave or maybe had already left for apt. As he gets a ride to them from someone. Told her he needed an apt before getting any more Tramadol. Told her next time he called for a refill we would discuss how to handle him answering the phone for a telemed visit or having to come to the office in person. She says she doesn't feel he is in pain but he has started chewing tobacco again and increasing usage of that and drinking lots of diet soda which he did when he was abusing drugs so wanted you to know this as she doesn't want him getting addicted again. documented in this encounter Plan of Treatment Not on file documented as of this encounter Visit Diagnoses Not on filedocumented in this encounter Care Teams Domestic Violence Counselor Relationship Specialty Start Date End Date Jason Batres MD [address] [place] [address] PCP - General 07/27/11 12/31/23 documented as of this encounter
--- OUTSIDE RECORDS SUMMARY | 2024-02-28 16:48 | XMS_ITS | Encounter Summary ---
Author Organization [facility] Address [address] [place] [address] Care Team Providers Care Prosthetic Makeup Designer Name Role Phone Jason Batres MD Primary Care Provi margarita Reason for Visit * Reason Comments Pain Encounter Details Date Type Department Care Team (Latest Contact Info) Description 01/27/2020 10:30 EST Office Visit [facility] Foot & Ankle Program - [address] [address] Angelina Gonzales [facility] [address] [place] [address] Ulcerated, foot, right, with fat layer exposed ([facility]) (Primary Dx); Status post transmetatarsal amputation of foot, right ([facility]); Type 2 diabetes mellitus with diabetic polyneuropathy, with long-term current use of insulin ([facility]) Social History Tobacco Use Types [...] Refills Last Filled Start Date End Date honey (MICHAEL BARRERA,) 80 % gel Apply 1 application topically three times a week. 1 Tube 2 01/28/2020 1 documented in this encounter Progress Notes * Angelina Gonzales, BRENDA - 01/27/2020 1030 EST Images from the original note were not included. Jeff Scott is a very pleasant 59 y.o. male patient who presents for follow up for an acute visittoday due to concern of new ulcer right plantar foot. He was discharged from [facility] and rehab almost 2 weeks ago. He reports that he has been walking on the foot, and was loading logs out back and get the dressing wet and did not think much about it. When visiting nursing came they noticed a new wound and were concerned and called the office. PRESTON has been coming 3 times a week. He has been wearing the surgical shoe and since developing the new wound in the last few days has been trying to stay off of his foot more. He currently denies any pain in the foot though does get some pain at night. He denies nausea, vomiting, fever, chills. Patient Active Problem List Diagnosis Date Noted ??? Diabetic foot infection ([facility]) 10/04/2019 Priority: Medium ??? Acute osteomyelitis of right ankle or foot ([facility]) 10/03/2019 Priority: Medium ??? Hyperplastic polyp of descending colon 08/01/2018 Priority: Medium ??? Type 2 diabetes mellitus with diabetic polyneuropathy, with long-term current use of insulin ([facility]) 06/24/2018 Priority: Medium ??? Acute osteomyelitis of phalanx of foot ([facility]) 03/23/2016 Priority: Medium ??? Hypothyroidism 01/22/2013 Priority: Medium ??? Osteoarthritis of left hip 07/06/2014 ??? 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 Arthritis ??? Back pain ??? Diabetes mellitus ([facility]) ??? Hypothyroidism ??? Wears glasses [...] less than 3 seconds to all toes. Status post right foot transmetatarsal amputation. Ulcer dorsally healed, with scab, as below. No erythema or edema. No pain on palpation. New ulcer plantarly, as below. Measures 12 x 20 mm. Granular wound base. No probe to bone. No surrounding erythema or edema. No pain on probing. No fluctuance. Foot is able to get to 90 degrees at the ankle. No pain with range of motion of the ankle joint. Manual muscle testing 5 out of 5. Gross protective sensation absent. Right dorsal foot wound: Right plantar foot wound: ASSESSMENT: 1. Ulcerated, foot, right, with fat layer exposed ([facility]) 2. Status post transmetatarsal amputation of foot, right ([facility]) 3. Type 2 diabetes mellitus with diabetic polyneuropathy, with long-term current use of insulin ([facility]) No orders of the defined types were placed in this encounter. PLAN: Mr. Scott presents today for follow-up status post right foot transmetatarsal amputation. Dorsal wound has healed. He unfortunately has developed a new plantar wound. Likely from too much weightbearing and getting the dressing wet. We discussed these findings. No signs of infection. I did lightly debride the wound today. We discussed that this will not heal if he continues to bear weight on it and I gave him instructions to stay off the foot. He is going to get fitted for some crutches today. We will update visiting nursing with wound care instruction, as below. We reviewed the importance of keeping the dressing clean and dry-if dressing gets wet wound can get worse or infected. He had some questions about the pain he is having at night. He gets good relief with the tramadol he has, though only has a few pills left. We discussed that he can take Tylenol at night as needed for pain. I amgoing to see him back in 2 weeks. He knows to call before then if any problems arise and is happy with this plan. Instructions for VNA: Change dressing to right foot 3 times a week. Apply Medihoney to ulcer plantarly. This was sent to his pharmacy today. Apply DSD, Kerlix, KACEY bandage. Please do not apply Coban.He should be nonweightbearing to the right foot-he was fitted for crutches today. He should be keeping the dressing clean and dry between VNA visits. I recommended he get a cast bag from the pharmacyfor showering. He has follow up with me in 2 weeks. Please call with any concerns. Portions of this document have been prepared with speech recognition software or keyboard data steward techniques. Minor irregularities or keyboarding misprints may be present documented in this encounter Plan of Treatment Not on file documented as of this encounter Visit Diagnoses Diagnosis Ulcerated, foot, right, with fat layer exposed ([facility])- Primary Status post transmetatarsal amputation of foot, right ([facility]) Type 2 diabetes mellitus with diabetic polyneuropathy, with long-term current use of insulin ([facility]) documented in this encounter Care Teams Prosthetic Makeup Designer Relationship Specialty Start Date End Date Jason Batres MD [address] [place] [address] PCP - General 07/27/11 12/31/23 documented as of this encounter
--- OUTSIDE RECORDS SUMMARY | 2024-02-28 16:48 | XMS_ITS | Encounter Summary ---
Author Organization [facility] Address [address] [place] [address] Care Team Providers Care Copier And Printer Field Technician Name Role Phone Jason Batres MD Primary Care Provi margarita Reason for Visit * Reason Comments Foot Problem Encounter Details Date Type Department Care Team (Latest Contact Info) Description 11/14/2019 10:30 EDT Office Visit [facility] Foot & Ankle Program - [address] [address] Angelina Gonzales [facility] [address] [place] [address] Status post transmetatarsal amputation of right foot ([facility]) (Primary Dx); Type 2 diabetes mellitus with diabetic polyneuropathy, with long-term current use of insulin ([facility]) Social History Tobacco Use Types Packs/Day Years [...] Progress Notes * Angelina Gonzales DPM - 11/14/2019 1030 EDT Images from the original note were not included. HPI: Jeff Scott is a 58 y.o. male patient who presents for follow up 5 weeks status post left transmetatarsal amputation, with dorsal debridement and wound VAC application. He presents today from [facility] and rehab. He reports that he is doing well. They have been changing the wound VAC 3 times a week. He has been getting his IV antibiotics and is due to finish these on 11/18. He has been staying off the foot. He occasionally gets some pain in the foot at night, which is relieved with pain medications. He currently denies any pain in the foot. Overall he is feeling well and denies any nausea, vomiting, fever, chills. Review of Systems A ten point review of systems was performed. Pertinent positives are listed below, all others are negative. Vital signs: vitals were not taken for this visit. PHYSICAL EXAM: General:??AO x 3, NAD Lower extremity:??RLE:??Status post transmetatarsal amputation. ??Plantar flap well healed, as pictured below. ?Dorsal debridement site with good granulation tissue, as below. Filling in well.??Nopurulence. ??No surrounding erythema. ??No malodor or necrosis. No pain on probing. No exposed bone. Able to flex the foot to 90 degrees at the ankle. Gross protective sensation diminished. Dorsal TMA site debridement area: Plantar TMA flap R foot: ASSESSMENT: 1. Status post transmetatarsal amputation of right foot ([facility]) 2. Type 2 diabetes mellitus with diabetic polyneuropathy, with long-term current use of insulin ([facility]) No orders of the defined types were placed in this encounter. PLAN: Mr. Scott presents today for follow-up 5 weeks status post right foot transmetatarsal amputation with dorsal debridement and wound VAC application (DOS 10/09/19). This is doing very well. Plantar flap remains well-healed. Dorsal debridement site filling in nicely. No longer probes deep. No exposed bone. Good granulation tissue. No acute signs of infection. We discussed these findings. We will discontinue the wound VAC. Will transition to daily wet-to-dry dressing changes. Instructions were written for [facility] rehab. Instructions to change dressing daily with a wet-to-dry dressing to the debridement site. To apply Betadine to the periphery as needed for maceration. He is going tocontinue nonweightbearing and elevation. He is going to continue the antibiotics per infectious disease recommendations. He has follow-up with them next week. I am going to see him back in 2 to 3 weeks. He knows to call before then if any problems arise and is happy with this plan. Portions of this document have been prepared with speech recognition software or keyboard database analyst techniques. Minor irregularities or keyboarding misprints may be present documented in this encounter Plan of Treatment Not on file documented as of this encounter Visit Diagnoses Diagnosis Status post transmetatarsal amputation of right foot ([facility])- Primary Type 2 diabetes mellitus with diabetic polyneuropathy, with long-term current use of insulin ([facility]) documented in this encounter Historical Medications * This list may reflect changes made after this encounter. metFORMIN (GLUCOPHAGE) 500 mg tablet Take 500 mg by mouth 2 times daily. 04/22/2020 added in this encounter Care Teams Copier And Printer Field Technician Relationship Specialty Start Date End Date Jason Batres MD [address] [place] [id number] PCP - General 07/27/11 12/31/23 documented as of this encounter
--- OUTSIDE RECORDS SUMMARY | 2024-02-28 16:48 | XMS_ITS | Encounter Summary ---
Author Organization [facility] Address [address] [place] [address] Care Team Providers Care Lab Rep Name Role Phone Jason Batres MD Primary Care Provi margarita Alexus De La O RN [facility] Internal Medicine, Primary Care Provi margarita Encounter Details Date Type Department Care Team (Late st Contact Info) Description 11/17/2019 Lab Requisition [facility] Pathology & Laboratory Medicine - [facility] [address] [place] [address] Edson Zepeda MD [address] [place] [address] [place] [id number] Encounter for other general examination Social History Tobacco Use Types Packs/Day Years [...] Anna Sevilla RN documented in this encounter Plan of Treatment Not on file documented as of this encounter Procedures Procedure Name Priority Date/Time Associated Diagnosis Comments SED RATE Today 11/17/2019 5:30 EDT Encounter for other general examination COMPLETE BLOOD COUNT AND DIFFERENTIAL Today 11/17/2019 5:30 EDT Encounter for other general examination C REACTIVE PROTEIN Today 11/17/2019 5: 30 EDT Encounter for other general examination BUN Today 11/17/2019 5:30 EDT Encounter for other general examination CREATININE Today 11/17/2019 5:30 EDT Encounter for other general examination documented in this encounter Results * (ABNORMAL) SED. RATE:TEAGAN (11/17/2019 5:30 EDT) [facility] Sed Rate 28(H) 0 - 20 mm/hr 11/17/2019 16:14 [facility] Comment:Note: Sample greater than 4 hours old (but less than 12 hours) when tested. If refrigerated, sample is stable when tested within 12 hours of collection. Blood VENOUS BLOOD / Unknown Non-Lab Collect / Unknown 11/17/2019 5:30 EDT 11/17/2019 14:01 EDT us Edson Zepeda MD HEMATOLOGY & PF4 ORDERABL ES Final Result [facility] [address] [place] [address] * (ABNORMAL) COMPLETE BLOOD COUNT AND DIFFERENTIAL (11/17/2019 5:30 EDT) [facility] WBC 4.29 4.00 - 10.40 K/cmm 11/17/2019 14:22 [facility] RBC 4.19(L) 4.36 - 5.78 M/cmm 11/17/2019 14:22 [facility] Hemoglobin 13.5(L) 13.8 - 17.3 gm/dL 11/17/2019 14:22 [facility] HCT 38.1(L) 39.5 - 50.2 % 11/17/2019 14:22 [facility] MCV 91 81 - 95 fl 11/17/2019 14:22 [facility] MCH 32.2 27.6 - 33.0 pg 11/17/2019 14:22 [facility] MCHC 35.4 32.8 - 36.4 gm/dL 11/17/2019 14:22 [facility] RDW-CV 13.1 <14.2 % 11/17/2019 14:22 [facility] RDW-SD 43.5 <46.0 fl 11/17/2019 14:22 [facility] PLT 159 141 - 377 K/cmm 11/17/2019 14:22 [facility] MPV 11.8 9.5 - 12.7 fl 11/17/2019 14:22 [facility] % Neutrophils 51.0 % 11/17/2019 14:22 [facility] % Lymphocytes 32.2 % 11/17/2019 14:22 [facility] % Monocytes 8.4 % 11/17/2019 14:22 [facility] % Eosinophils 7.7 % 11/17/2019 14:22 [facility] % Basophils 0.5 % 11/17/2019 14:22 [facility] % Immature Grans 0.2 % 11/17/19 14:22 [facility] Absolute Neutrophils 2.19(L) 2.20 - 8.85 K/cmm 11/17/2019 14:22 [facility] Absolute Lymphocytes 1.38 1.09 - 3.30 K/cmm 11/17/2019 14:22 [facility] Absolute Monocytes 0.36 0.10 - 0.80 K/cmm 11/17/2019 14:22 [facility] Absolute Eosinophils 0.33 0.03 - 0.61 K/cmm 11/17/2019 14:22 [facility] ABS Basophils 0.02 0.01 - 0.11 K/cmm 11/17/2019 14:22 [facility] Absolute Immature Grans 0.01 0.00 - 0.06 K/cmm 11/17/2019 14:22 [facility] Type of Differential: Auto 11/17/2019 14:22 [facility] Blood VENOUS BLOOD / Unknown Non-Lab Collect / Unknown 11/17/2019 5:30 EDT 11/17/2019 14:01 EDT us Edson Zepeda MD PACKAGES & DNA PROBE INO ROMERO Final Result [facility] [address] [place] [address] * (ABNORMAL) CREATININE (11/17/2019 5:30 EDT) Creatinine 0.54(L) 0.66 - 1.25 mg/dL 11/17/2019 14:25 EDT [facility] eGFR 117 >60 mL/min/1.7 3m2 11/17/2019 14:25 EDT [facility] Comment:eGFR calculated sarahi g CKD-EPI equation for non- Americans. Multiply eGFR by 1.16 for patients. Blood VENOUS BLOOD / Unknown Non-Lab Collect / Unknown 11/17/2019 5:30 EDT 11/17/2019 14:01 EDT Edson Zepeda MD CHEMISTRY & BLOOD GAS ORD ERABLES Final Result Performing Organization Address City/[facility]/ZIP Co de Phone Number [facility] [address] [place] [address] * BUN (11/17/2019 5:30 EDT) BUN 18 10 - 26 mg/dL 11/17/2019 14:25 EDT [facility] Blood VENOUS BLOOD / Unknown Non-Lab Collect / Unknown 11/17/2019 5:30 EDT 11/17/2019 14:01 EDT Edson Zepeda MD CHEMISTRY & BLOOD GAS ORD ERABLES Final Result [facility] [address] [place] [address] * C REACTIVE PROTEIN (11/17/2019 5:30 EDT) C-Reactive Protein 7.8 <10.0 mg/L 11/17/2019 14:25 EDT [facility] Blood VENOUS BLOOD / Unknown Non-Lab Collect / Unknown 11/17/2019 5:30 EDT 11/17/2019 14:01 EDT Edson Zepeda MD CHEMISTRY & BLOOD GAS ORD ERABLES Final Result [facility] [address] [place] [address] documented in this encounter Visit Diagnoses Diagnosis Encounter for other general examination documented in this encounter Additional Health Concerns Infection Onset Date Last Indicated Resolved Time R/O COVID-19 Comment:Negative swab 12/22/2020 12/22/2020 12/22/2020 021 7:17 EDT R/O COVID-19 Comment:Negative 02/17/2022 02/17/2022 02/18/2022 7:30 EST Rule-Out C. difficile 02/25/2022 02/25/20222021 12:00 EST R/O COVID-19 04/09/2022 04/09/2022 04/09/2022 16:3 2 EST documented as of this encounter Care Teams Lab Rep Relationship Specialty Start Date End Date Jason Batres MD [address] [place] [address] PCP - General 07/27/11 12/31/23 [facility] Internal Medicine, [address] [place] [address] PCP - General 01/01/24 Alexus De La O, floor coverings salesperson 04/18/22 08/13/23 documented as of this encounter
--- OUTSIDE RECORDS SUMMARY | 2024-02-28 16:48 | XMS_ITS | Encounter Summary ---
Author Organization [facility] Address [address] [place] [address] Care Team Providers Care Railroad Car Truck Builder Name Role Phone Jason Batres MD Primary Care Provi margarita Alexus De La O RN Unavailable [facility] Internal Medicine, Primary Care Provi margarita Encounter Details Date Type Department Care Team (Late st Contact Info) Description 12/26/2019 Lab Requisition 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) use of insulin ([facility]) Social History Tobacco [...] Procedure Name Priority Date/Time Associated Diagnosis Comments TSH Today 12/24/2019 7:30 EDT Hypothyroidism, unspecified T4 FREE Today 12/24/2019 7:30 EDT Hypothyroidism, unspecified BASIC METABOLIC PANEL (BMP) Today 12/24/2019 7:30 EDT Hypothyroidism, unspecified documented in this encounter Results * (ABNORMAL) TSH (12/24/2019 7:30 EDT) TSH 4.85(H) 0.47 - 4.68 uIU/mL 12/26/2019 7:46 EDT [facility] Blood VENOUS BLOOD / Unknown Non-Lab Collect / Unknown 12/24/2019 7:30 EDT 12/26/2019 6:53 EDT Narrative [facility] - 12/26/2019 7:46 EDT The results of this assay can be falsely lowered due to the consumption of Biotin. Edson Zepeda MD CHEMISTRY & BLOOD GAS ORD ERABLES Final Result Performing Organization Address City/[facility]/ZIP Co de Phone Number [facility] [address] [place] [address] * T4 FREE (12/24/2019 7:30 EDT) T4, Free 1.0 0.8 - 2.2 ng/dL 12/26/2019 7:32 EDT [facility] Blood VENOUS BLOOD / Unknown Non-Lab Collect / Unknown 12/24/2019 7:30 EDT 12/26/2019 6:53 EDT Edson Zepeda MD CHEMISTRY & BLOOD GAS ORD ERABLES Final Result Performing Organization Address City/[facility]/ZIP Co de Phone Number [facility] [address] [place] [address] * (ABNORMAL) BASIC METABOLIC PANEL (BMP) (12/24/2019 7:30 EDT) Sodium 138 136 - 145 mEq/L 12/26/2019 7:12 EDT [facility] Potassium 4.3 3.5 - 5.0 mEq/L 12/26/2019 7:12 T [facility] Chloride 101 96 - 110 mEq/L 12/26/2019 7:12 T [facility] CO2 Total 27 22 - 32 mEq/L 12/26/2019 7:12 [facility] Glucose 254(H) 70 - 100 mg/dL 12/26/2019 7:12 [facility] Calcium 9.2 8.5 - 10.5 mg/dL 12/26/2019 7:12 T [facility] Calculated Calcium 9.1 8.5 - 10.5 mg/dL 12/26/2019 7:12 EDT [facility] BUN 15 10 - 26 mg/dL 12/26/2019 7:12 EDT [facility] Creatinine 0.63(L) 0.66 - 1.25 mg/dL 12/26/2019 7:12 EDT [facility] eGFR 109 >60 mL/min/1.7 3m2 12/26/2019 7:12 EDT [facility] Comment:eGFR calculated sarahi krishnan CKD-EPI equation for non- Americans. Multiply eGFR by 1.16 for patients. Blood VENOUS BLOOD / Unknown Non-Lab Collect / Unknown 12/24/2019 7:30 EDT 12/26/2019 6:53 EDT Edson Zepeda MD CHEMISTRY & BLOOD GAS ORD ERABLES Final Result [facility] [address] [place] [address] documented in this encounter Visit Diagnoses Diagnosis Hypothyroidism, unspecified Type 2 diabetes mellitus with diabetic polyneuropathy ([facility]) Type II or unspecified type diabetes mellitus with neurological manifestations, not stated as uncontrolled prison (current) use of insulin ([facility]) documented in this encounter Additional Health Concerns Infection Onset Date Last Indicated Resolved Time R/O COVID-19 Comment:Negative swab 12/22/2020 12/22/2020 12/22/2020 10 021 7:17 EDT R/O COVID-19 Comment:Negative 02/17/2022 02/17/2022 02/18/2022 7:30 EST Rule-Out C. difficile 02/25/2022 02/25/20222021 12:00 EST R/O COVID-19 04/09/2022 04/09/2022 04/09/2022 16:3 2 EST documented as of this encounter Care Teams Railroad Car Truck Builder Relationship Specialty Start Date End Date Jason Batres MD [address] [place] [address] PCP - General 07/27/11 12/31/23 [facility] Internal Medicine, [place] [address] [place] [address] PCP - General 01/01/24 Alexus De La O, laboratory technical specialist 04/18/22 08/13/23 documented as of this encounter
--- OUTSIDE RECORDS SUMMARY | 2024-02-28 16:48 | XMS_ITS | Encounter Summary ---
Author Organization [facility] Address [address] [place] [address] Care Team Providers Care Fitness Consultant Name Role Phone Jason Batres MD Primary Care Provi margarita Reason for Visit * Reason Comments Foot Pain Encounter Details Date Type Department Care Team (Late st Contact Info) Description 03/02/2020 8:30 EST Telemedicine Jason Batres MD, PC [address], [place] [address] Jason Batres MD [address] [place] [phone] Acute osteomyelitis of phalanx of right foot (HCC-CMS) (Primary Dx) Social History Tobacco [...] tablet Take 1 Tab by mouth every 8 hours as needed for Pain. Daily Max: 150 mg 60 Tab 03/02/2020 04/22/2020 documented in this encounter Progress Notes * Jason Batres MD - 03/02/2020 0830 EST The concept of ???Telemedicine?? has been described to the patient.? Patient has been informed of the anticipated benefits and possible risks.? Patient understands the information provided regardingtelemedicine, has had the opportunity to ask questions about this information, and all questions have been answered to patient???s satisfaction. Patient consents for the use of telemedicine in his/her medical care and authorizes the transmission of any relevant medical information to providers and their staff involved in patient???s medical or mental health care. This was done over a landline Patient ID: Jeff Scott is an 59 y.o. male. No chief complaint on file. ZEKE Aguilar was at [facility] for about 3 months. He has now been home since early January. He says the people at [facility] were excellent and worked with him on therapy and getting his strength back. He has continued to see Dr. Gonzales since that time. His last visit was February 11 and he has another visit later today. He also has help from [facility] who changes the dressing between appointments with podiatry. Dr. Gonzales has stressed that he needs to stay off his foot and he has been using crutches to do this. He tells me he was not told this at first, so when he was first home he did not stay of the foot- but now he has been and it is improving. Jeff is having pain in the foot- he tells me right now it is a 4-5/10 but varies. It is often OK in the morning as he has been resting and elevating, but as he is upright it starts to throb. He willput his feet up during the day as much as he can.He uses the tramadol - 1 pill TID.He ran out once and was without it for a few days and it throbbed wicked He did bang the foot against the door recently and so the pain has been worse the last few days. Other than that exacerbation, he feels the pain is improving. He was on oxycodone in the hospital but has not needed that for months. Jeff says his FS have been in the 180-200 range. It has come down from over 200. He says he is faithful with taking his insulin. He uses basaglar as well as novolog [facility] Social Current Outpatient Medications on File Prior [...] times a week. 1 Tube 2 ??? ibuprofen (MOTRIN) 200 [...] 1 Tab by mouth 4 times daily. (Patient not taking: Reported on 02/12/2020) 30 Tab 0 ??? oxyCODONE (ROXICODONE) 5 mg immediate release tablet Take 1-2 Tabs by mouth every 4 hours as needed for Pain. Daily Max: 60 mg (Patient not taking: Reported on 02/12/2020) 30 Tab 0 ??? sodium chloride 0.9 [...] 30 Tab 0 No current facility-administered medications on file prior to visit. No Known Allergies ROS - See HPI Objective: There were no vitals taken for this visit. Physical Exam Gen: well, NAD Breathing comfortably Assessment: Plan: 1. Foot ulcer Jeff continues to follow-up closely with Dr. Gonzales and will do this I need to see him at some point to sign informed consent, but given the Covid-19 pandemic this visit was done over telehealth He did acknowledge verbally that he understands the risk of opioids and wishes to continue for now,but is hoping he can decrease the use as his pain is improving. 2. Diabetes His last A1C was 11.1 in December- he tells me he is now taking his insulin He will schedule a visit in 3-4 weeks and I will check an A1C then. Jason Batres MD documented in this encounter Plan of Treatment Not on file documented as of this encounter Visit Diagnoses Diagnosis Acute osteomyelitis of phalanx of right foot ([facility])- Primary documented in this encounter Discontinued Medications Medication Sig Discontinue Reason Start Date End Da te oxyCODONE (ROXICODONE) 5 mg immediate release tablet Take 1-2 Tabs by mouth every 4 hours as needed for Pain. Daily Max: 60 mg 10/14/2019 03/02/2020 methocarbamoL (ROBAXIN) 750 mg tablet Take 1 Tab by mouth 4 times daily. 10/14/2019 03/02/2020 traMADol (ULTRAM) 50 mg tablet Take 1 Tab by mouth every 6 hours as needed for Pain. Daily Max: 200 mg Reorder 02/12/2020 03/02/2020 documented as of this encounter Care Teams Fitness Consultant Relationship Specialty Start Date End Date Jason Batres MD [address] [place] [address] PCP - General 07/27/11 12/31/23 documented as of this encounter
--- OUTSIDE RECORDS SUMMARY | 2024-02-28 16:48 | XMS_ITS | Encounter Summary ---
Author Organization [facility] Address [address] [place] [address] Care Team Providers Care Hoe Worker Name Role Phone Jason Batres MD Primary Care Provi margarita Alexus De La O RN Unavailable [facility] Internal Medicine, Primary Care Provi margarita Encounter Details Date Type Department Care Team (Late st Contact Info) Description 12/25/2019 Lab Requisition [facility] Pathology & Laboratory Medicine - [facility] [address] [place] [address] Edson Zepeda MD [address] [place] [phone] Hypothyroidism, unspecified; Type 2 diabetes mellitus with diabetic polyneuropathy (HCC-CMS); terminal manager (current) use of insulin (HCC-CMS) Social History [...] Procedure Name Priority Date/Time Associated Diagnosis Comments THYROID CASCADE Today 12/25/2019 13:40 EDT Hypothyroidism, unspecified T4 FREE Today 12/25/2019 13:40 EDT Hypothyroidism, unspecified HEMOGLOBIN A1C Today 12/25/2019 13:40 EDT Hypothyroidism, unspecified BASIC METABOLIC PANEL (BMP) Today 12/25/2019 13:40 EDT Hypothyroidism, unspecified documented in this encounter Results * T4 FREE (12/25/2019 13:40 EDT) [facility] T4, Free 0.9 0.8 - 2.2 ng/dL 12/25/2019 22:47 EDT [facility] Blood VENOUS BLOOD / Unknown Non-Lab Collect / Unknown 12/25/2019 13:40 EDT 12/25/2019 20:17 EDT Edson Zepeda MD CHEMISTRY & BLOOD GAS ORD ERABLES Final Result Performing Organization Address [facility] de Phone Number [facility] [address] [place] [address] * THYROID CASCADE (12/25/2019 13:40 EDT) TSH 1.73 0.47 - 4.68 uIU/mL 12/25/2019 23:01 EDT [facility] Blood VENOUS BLOOD / Unknown Non-Lab Collect / Unknown 12/25/2019 13:40 EDT 12/25/2019 20:17 EDT Narrative [facility] - 12/25/2019 23:01 EDT NOTE: TSH Bent is not recommended for patients in which pituitary or hypothalamic disorders are suspected. The results of this assay can be falsely lowered due to the consumption of Biotin. Edson Zepeda MD CHEMISTRY & BLOOD GAS ORD ERABLES Final Result Performing Organization Address [facility] de Phone Number [facility] [address] [place] [address] * (ABNORMAL) HEMOGLOBIN A1C (12/25/2019 13:40 EDT) Hemoglobin A1c 11.1(H) <5.7 % 12/26/2019 9:29 EDT [facility] Comment: Glycemic Status References: Normal: ??<5.7% Pre-Diabetes: ??5.7% - 6.4% Diagnostic of Diabetes: ??> or = 6.5% (if confirmed) Goals for glycemic control in diabetics (ADA 2017): <7.0% target for non adults with diabetes. <7.5% target for children and adolescents with Type I Diabetes. More or less stringent targets may be appropriate for individual patients. Est Avg Glucose 272 mg/dL 0 9:29 EDT [facility] Comment:The eAG represents t he A1c result expressed as average glucose in mg/dL. Blood VENOUS BLOOD / Unknown Non-Lab Collect / Unknown 12/25/2019 13:40 EDT 12/25/2019 20:17 EDT us Edson Zepeda MD CHEMISTRY & BLOOD GAS ORD ERABLES Final Result [facility] [address] [place] [address] * (ABNORMAL) BASIC METABOLIC PANEL (BMP) (12/25/2019 13:40 EDT) Sodium 140 136 - 145 mEq/L 12/25/2019 22:29 [facility] Potassium 4.6 3.5 - 5.0 mEq/L 12/25/2019 22:29 [facility] Chloride 102 96 - 110 mEq/L 12/25/2019 22:29 [facility] CO2 Total 26 22 - 32 mEq/L 12/25/2019 22:29 [facility] Glucose 288(H) 70 - 100 mg/dL 12/25/2019 22:29 [facility] Calcium 9.8 8.5 - 10.5 mg/dL 12/25/2019 22:29 [facility] Calculated Calcium 9.6 8.5 - 10.5 mg/dL 12/25/2019 22:29 [facility] BUN 16 10 - 26 mg/dL 12/25/2019 22:29 [facility] Creatinine 0.64(L) 0.66 - 1.25 mg/dL 12/25/2019 22:29 [facility] eGFR 108 >60 mL/min/1.7 3m2 12/25/2019 22:29 EDT [facility] Comment:eGFR calculated usin g CKD-EPI equation for non- Americans. Multiply eGFR by 1.16 for patients. Blood VENOUS BLOOD / Unknown Non-Lab Collect / Unknown 12/25/2019 13:40 EDT 12/25/2019 20:17 EDT us Edson Zepeda MD CHEMISTRY & BLOOD GAS ORD ERABLES Final Result [facility] [address] [place] [address] documented in this encounter Visit Diagnoses Diagnosis Hypothyroidism, unspecified Type 2 diabetes mellitus with diabetic polyneuropathy ([facility]) Type II or unspecified type diabetes mellitus with neurological manifestations, not stated as uncontrolled terminal manager (current) use of insulin ([facility]) documented in this encounter Additional Health Concerns Infection Onset Date Last Indicated Resolved Time R/O COVID-19 Comment:Negative swab 12/22/2020 12/22/2020 12/22/2020 021 7:17 EDT R/O COVID-19 Comment:Negative 02/17/2022 02/17/2022 02/18/2022 7:30 EST Rule-Out C. difficile 02/25/2022 02/25/20222021 12:00 EST R/O COVID-19 04/09/2022 04/09/2022 04/09/2022 16:3 2 EST documented as of this encounter Care Teams Hoe Worker Relationship Specialty Start Date End Date Jason Batres MD [address] [place] [address] PCP - General 07/27/11 12/31/23 [facility] Internal Medicine, [address] [place] [address] PCP - General 01/01/24 Alexus De La O, manager supply chain 04/18/22 08/13/23 documented as of this encounter
--- OUTSIDE RECORDS SUMMARY | 2024-02-28 16:48 | XMS_ITS | Encounter Summary ---
Author Organization [facility] Address [address] [place] [address] Care Team Providers Care Musical Instrument Supervisor Name Role Phone Jason Batres MD Primary Care Provi margarita Alexus De La O RN [facility] Internal Medicine, Primary Care Provi margarita Encounter Details Date Type Department Care Team (Late st Contact Info) Description 12/08/2019 Lab Requisition [facility] Pathology & Laboratory Medicine - [facility] [address] [place] [address] Edson Zepeda MD [address] [place] [phone] Type 2 diabetes mellitus without complications (HCC-CMS); Hypothyroidism, unspecified; Local infection of the skin and subcutaneous tissue, unspecified Social History Tobacco Use Types Packs/Day Years [...] Date/Time Associated Diagnosis Comments SED RATE Today 12/08/2019 6:00 EDT Type 2 diabetes mellitus without complications ([facility]) COMPLETE BLOOD COUNT AND DIFFERENTIAL Today 12/08/2019 6:00 EDT Type 2 diabetes mellitus without complications ([facility]) C REACTIVE PROTEIN Today 12/08/2019 6: 00 EDT Type 2 diabetes mellitus without complications ([facility]) BUN Today 12/08/2019 6:00 EDT Type 2 diabetes mellitus without complications ([facility]) CREATININE Today 12/08/2019 6:00 EDT Type 2 diabetes mellitus without complications ([facility]) documented in this encounter Results * SED. RATE:WESTERGREN (12/08/2019 6:00 EDT) Sed Rate 11 0 - 20 mm/hr 12/08/2019 13:51 EDT [facility] Comment:Note: Sample greater than 4 hours old (but less than 12 hours) when tested. If refrigerated, sample is stable when tested within 12 hours of collection. Blood VENOUS BLOOD / Unknown Non-Lab Collect / Unknown 12/08/2019 6:00 EDT 12/08/2019 12:59 EDT Edson Zepeda MD HEMATOLOGY & PF4 ORDERABL ES Final Result Performing Organization Address [facility] Co de Phone Number [facility] [address] [place] [address] * CREATININE (12/08/2019 6:00 EDT) [facility] Creatinine 0.72 0.66 - 1.25 mg/dL 12/08/2019 13:19 EDT [facility] eGFR 104 >60 mL/min/1.7 3m2 12/08/2019 13:19 EDT [facility] Comment:eGFR calculated sarahi krishnan CKD-EPI equation for non- Americans. Multiply eGFR by 1.16 for patients. Blood VENOUS BLOOD / Unknown Non-Lab Collect / Unknown 12/08/2019 6:00 EDT 12/08/2019 12:59 EDT Edson Zepeda MD CHEMISTRY & BLOOD GAS ORD ERABLES Final Result Performing Organization Address [facility] Co de Phone Number [facility] [address] [place] [address] * (ABNORMAL) COMPLETE BLOOD COUNT AND DIFFERENTIAL (12/08/2019 6:00 EDT) WBC 7.30 4.00 - 10.40 K/cmm 12/08/2019 13:10 [facility] RBC 3.78(L) 4.36 - 5.78 M/cmm 12/08/2019 13:10 [facility] Hemoglobin 11.9(L) 13.8 - 17.3 gm/dL 12/08/2019 13:10 [facility] HCT 34.1(L) 39.5 - 50.2 % 12/08/2019 13:10 [facility] MCV 90 81 - 95 fl 12/08/2019 13:10 [facility] MCH 31.5 27.6 - 33.0 pg 12/08/2019 13:10 [facility] MCHC 34.9 32.8 - 36.4 gm/dL 12/08/2019 13:10 [facility] RDW-CV 13.1 <14.2 % 12/08/2019 13:10 [facility] RDW-SD 42.9 <46.0 fl 12/08/2019 13:10 [facility] PLT 175 141 - 377 K/cmm 12/08/2019 13:10 [facility] MPV 11.7 9.5 - 12.7 fl 12/08/2019 13:10 [facility] % Neutrophils 55.5 % 12/08/2019 13:10 [facility] % Lymphocytes 30.7 % 12/08/2019 13:10 [facility] % Monocytes 8.1 % 12/08/2019 13:10 [facility] % Eosinophils 5.1 % 12/08/2019 13:10 [facility] % Basophils 0.3 % 12/08/2019 13:10 [facility] % Immature Grans 0.3 % 12/08/19 20 13:10 [facility] Absolute Neutrophils 4.06 2.20 - 8.85 K/cmm 12/08/2019 13:10 [facility] Absolute Lymphocytes 2.24 1.09 - 3.30 K/cmm 12/08/2019 13:10 T [facility] Absolute Monocytes 0.59 0.10 - 0.80 K/cmm 12/08/2019 13:10 T [facility] Absolute Eosinophils 0.37 0.03 - 0.61 K/cmm 12/08/2019 13:10 [facility] ABS Basophils 0.02 0.01 - 0.11 K/cmm 12/08/2019 13:10 [facility] Absolute Immature Grans 0.02 0.00 - 0.06 K/cmm 12/08/2019 13:10 [facility] Type of Differential: Auto 12/08/2019 13:10 [facility] Blood VENOUS BLOOD / Unknown Non-Lab Collect / Unknown 12/08/2019 6:00 EDT 12/08/2019 12:59 EDT us Edson Zepeda MD PACKAGES & DNA PROBE ORDE RABLES Final Result [facility] [address] [place] [address] * BUN (12/08/2019 6:00 EDT) Pathologist [facility] BUN 25 10 - 26 mg/dL 12/08/2019 13:19 EDT [facility] Blood VENOUS BLOOD / Unknown Non-Lab Collect / Unknown 12/08/2019 6:00 EDT 12/08/2019 12:59 EDT us Edson Zepeda MD CHEMISTRY & BLOOD GAS ORD ERABLES Final Result [facility] [address] [place] [address] * C REACTIVE PROTEIN (12/08/2019 6:00 EDT) C-Reactive Protein <7.0 <10.0 mg/L 12/08/2019 13:19 EDT [facility] Blood VENOUS BLOOD / Unknown Non-Lab Collect / Unknown 12/08/2019 6:00 EDT 12/08/2019 12:59 EDT us Edson Zepeda MD CHEMISTRY & BLOOD GAS ORD ERABLES Final Result [facility] [address] [place] [address] documented in this encounter Visit Diagnoses Diagnosis Type 2 diabetes mellitus without complications ([facility]) Type II or unspecified type diabetes mellitus without mention of complication, not stated as uncontrolled Hypothyroidism, unspecified Local infection of the skin and subcutaneous tissue, unspecified documented in this encounter Additional Health Concerns Infection Onset Date Last Indicated Resolved Time R/O COVID-19 Comment:Negative swab 12/22/2020 12/22/2020 12/22/2020 021 7:17 EDT R/O COVID-19 Comment:Negative 02/17/2022 02/17/2022 02/18/2022 7:30 EST Rule-Out C. difficile 02/25/2022 02/25/20222021 12:00 EST R/O COVID-19 04/09/2022 04/09/2022 04/09/2022 16:3 2 EST documented as of this encounter Care Teams Musical Instrument Supervisor Relationship Specialty Start Date End Date Jason Batres MD [address] [place] [address] PCP - General 07/27/11 12/31/23 [facility] Internal Medicine, [address] [place] [address] PCP - General 01/01/24 Alexus De La O, hostess 04/18/22 08/13/23 documented as of this encounter
--- OUTSIDE RECORDS SUMMARY | 2024-02-28 16:48 | XMS_ITS | Encounter Summary ---
Author Organization [facility] Address [address] [place] [address] Care Team Providers Care Press Hand Name Role Phone Jason Batres MD Primary Care Provi margarita Reason for Visit * Reason Onset Date Comments Medication Management 04/22/2020 Encounter Details Date Type Department Care Team (Late st Contact Info) Description 04/22/2020 Telephone Jason Batres MD, PC [address] [place], [place] [phone] Jason Batres MD [address] [place] [phone] Medication Management Social History Tobacco [...] Date of Assessment Author Yes 10/04/2019 12:00 Anan Stephens RN * Because of a physical, [...] Telephone Encounter - Jason Batres MD - 04/22/2020 1643 EST Two insulin scripts were sent in Jason Batres MD * Telephone Encounter - Keyla Rhodes - 04/22/2020 1400 EST Lewis called stating he needs his Basaglar and Humalog insulin scripts sent in. Didn't do them as I don't know which ones they are documented in this encounter Plan of Treatment Not on file documented as of this encounter Visit Diagnoses Not on filedocumented in this encounter Care Teams Press Hand Relationship Specialty Start Date End Date Jason Batres MD [address] [place] [address] PCP - General 07/27/11 12/31/23 documented as of this encounter
--- OUTSIDE RECORDS SUMMARY | 2024-02-28 16:48 | XMS_ITS | Encounter Summary ---
Author Organization [facility] Address [address] [place] [address] Care Team Providers Care Sheet Metal Layout Mechanic Name Role Phone Jason Batres MD Primary Care Provi margarita Reason for Visit * Reason Onset Date Comments Medications Refill 02/11/2020 Encounter Details Date Type Department Care Team (Late st Contact Info) Description 02/11/2020 Refill Jason Batres MD, PC [address] [place], [place] [phone] Jason Batres MD [address] [place] [phone] Medications Refill Social History Tobacco [...] needed for Pain. Daily Max: 200 mg 30 Tab 02/12/2020 03/02/2020 traMADol (ULTRAM) 50 mg tablet Take 1 Tab by mouth every 6 hours as needed for Pain. Daily Max: 200 mg 30 Tab 02/12/2020 02/12/2020 documented in this encounter Miscellaneous Notes * Telephone Encounter - Keyla Rhodes - 02/11/2020 1327 EST Would like to strip picker script at [place] tomorrow. He has an apt at 10 a.m.and [facility] will drop him off a [place] to get script after that. documented in this encounter Plan of Treatment Not on file documented as of this encounter Visit Diagnoses Not on filedocumented in this encounter Discontinued Medications Medication Sig Discontinue Reason Start Date End Da te traMADoL (ULTRAM) 50 mg tablet Take 1 Tab by mouth every 6 hours as needed for Pain. Daily Max: 200 mg Reorder 10/14/2019 02/11/2020 traMADol (ULTRAM) 50 mg tablet Take 1 Tab by mouth every 6 hours as needed for Pain. Daily Max: 200 mg Reorder 02/12/2020 02/12/2020 documented as of this encounter Care Teams Sheet Metal Layout Mechanic Relationship Specialty Start Date End Date Jason Batres MD [address] [place] [id number] PCP - General 07/27/11 12/31/23 documented as of this encounter
--- OUTSIDE RECORDS SUMMARY | 2024-02-28 16:48 | XMS_ITS | Encounter Summary ---
Author Organization [facility] Address [address] [place] [address] Care Team Providers Care Sound Engineering Technician Name Role Phone Jason Batres MD Primary Care Provi margarita Reason for Visit * Reason Comments Telemedicine Video Visit Encounter Details Date Type Department Care Team (Late st Contact Info) Description 11/17/2019 13:[address] [facility] Infectious Disease - [address] [phone] Jorge Cunningham MD [address] [place] [address], [address] [place] [address] Other acute osteomyelitis of right foot (HCC-CMS) (Primary Dx) Social [...] documented in this encounter Progress Notes * Jorge Cunningham MD - 11/17/2019 1300 EDT Infectious Disease Outpatient Follow-Up Patient: Jeff Scott : 1960 Date of Service: 11/17/19 Reason for Visit: follow up osteomyelitis History of Present Illness: This is our 58yo diabetic gentleman presenting for ID follow-up of osteomyelitis. In brief review Mr. Scott was admitted to [facility] 10/03-10/15/19 w/ right DM foot infection and ultimately underwent TMA on 10/09/19. His cultures (below) were polymicrobials. His surgical resection marginswere positive for osteomyelitis, thus he was discharged to complete 6wks of IV antibiotics. He was seen by Dr. Gonzales on 11/13 and his wound was doing well. Today he has no complaints. He denies fevers/chills. He denies any perceived side-effect from the ertapenem. No nausea, diarrhea, pruritis, rash. He is very pleased with the care he has received fromDr. Gonzales and the staff at rehab. Review of Systems: A ten point ROS was conducted and is negative from an Infectious Disease perspective other than what is mentioned above in the HPI. Past Medical History: reviewed. 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 Anti-microbials: - pip/tazo x1 on 10/02 - cefepime 10/02-10/11/19 - metronidazole 10/02-10/11/19 - vanco 10/02-10/11/19 - amp-sulbactam 10/12-10/15/19 - ertapenem 10/14-current Allergies: reviewed. No known antibiotic allergies. Social History: reviewed. Lives in [place] w/ his yanet. Physical Examination: deferred, Zoom visit. He is in no distress. Reviewed photos from Dr. Gonzales's eval 11/13. Labs & Imaging: Reviewed. 11/10/19: - WBC 5.5, Hgb 11.8, Plt 175 - CRP <7 (consistently) - Cr 0.6 (stable) Imaging: reviewed. Most notable for - 10/04/19 MR right foot w/ osteomyelitis of 2nd phalanx and 2nd/3rd MT's, diffuse soft tissue edema/gas in forefoot/midfoot consistent w/ SSTI ?? Micro: reviewed. - 10/03/19 blood no growth - 10/03/19 covid neg - 10/04/19 tissue culture w/ mixed org's, few B.frag - 10/05/19 bone culture Strep anginosus, MSSA, Staph simulans, Enterococcus avium, E.coli, B.frag + mixed anaerobes, few Alcaligenes Impression: 1. Right DM foot infection - MR w/ osteomyelitis - s/p 2nd/3rd ray amp 10/05/19 w/ findings of multiple deep abscesses - s/p TMA 10/09/19 - cultures mixed (above) - TMA surg path w/ osteo at margins - now s/p 6wks IV ABX ?? Recommendations: Wound doing well per Dr. Gonzales's latest evaluation on 11/13 and has received 6wks ABX. I think reasonable to stop at this point. PICC can be removed. He should not need infectious disease follow-up presuming all goes well; we did review indications for medical re-evaluation (worsening of wound, redness, drainage, fevers). Discussed w/ [facility] staff present on the video call. ?? Thank you for allowing us the privilege of participating in Mr. Scott''s care. Jorge Cunningham MD Infectious Disease Attending Office [phone] documented in this encounter Plan of Treatment Not on file documented as of this encounter Visit Diagnoses Diagnosis Other acute osteomyelitis of right foot ([facility])- Primary documented in this encounter Care Teams Sound Engineering Technician Relationship Specialty Start Date End Date Jason Batres MD [address] [place] [id number] PCP - General 07/27/11 12/31/23 documented as of this encounter
--- OUTSIDE RECORDS SUMMARY | 2024-02-28 16:48 | XMS_ITS | Encounter Summary ---
Author Organization [facility] Address [address] [place] [address] Care Team Providers Care Curriculum Director Name Role Phone Jason Batres MD Primary Care Provi margarita Alexus De La O RN Unavailable [facility] Internal Medicine, Primary Care Provi margarita Encounter Details Date Type Department Care Team (Late st Contact Info) Description 11/24/2019 Lab Requisition [facility] Pathology & Laboratory Medicine - [facility] [address] [place] [address] Edson Zepeda MD [address] [place] [address] [address] [place] [address] Other acute osteomyelitis, right ankle and foot (HCC-CMS); Encounter for therapeutic drug level monitoring Social History Tobacco Use Types Packs/Day Years [...] Assessment Author Yes 10/04/2019 12:00 EDT Anna Sevlila RN documented as of this encounter Mental [...] Date/Time Associated Diagnosis Comments SED RATE Today 11/24/2019 6:40 EDT Other acute osteomyelitis, right ankle and foot ([facility]) COMPLETE BLOOD COUNT AND DIFFERENTIAL Today 11/24/2019 6:40 EDT Other acute osteomyelitis, right ankle and foot ([facility]) C REACTIVE PROTEIN Today 11/24/2019 6: 40 EDT Other acute osteomyelitis, right ankle and foot ([facility]) BUN Today 11/24/2019 6:40 EDT Other acute osteomyelitis, right ankle and foot (HCC-CMS) CREATININE Today 11/24/2019 6:40 EDT Other acute osteomyelitis, right ankle and foot (HCC-CMS) documented in this encounter Results * (ABNORMAL) SED. RATE:WESTERGREN (11/24/2019 6:40 EDT) Sed Rate 42(H) 0 - 20 mm/hr 11/24/2019 8:55 EDT [facility] Blood VENOUS BLOOD / Unknown Non-Lab Collect / Unknown 11/24/2019 6:40 EDT 11/24/2019 8:19 EDT us Edson Zepeda MD HEMATOLOGY & PF4 ORDERABL ES Final Result [facility] [address] [place] [address] * (ABNORMAL) COMPLETE BLOOD COUNT AND DIFFERENTIAL (11/24/2019 6:40 EDT) WBC 7.03 4.00 - 10.40 K/cmm 11/24/2019 8:39 [facility] RBC 3.98(L) 4.36 - 5.78 M/cmm 11/24/2019 8:39 [facility] Hemoglobin 12.5(L) 13.8 - 17.3 gm/dL 11/24/2019 8:39 [facility] HCT 36.8(L) 39.5 - 50.2 % 11/24/2019 8:39 [facility] MCV 93 81 - 95 fl 11/24/2019 8:39 [facility] MCH 31.4 27.6 - 33.0 pg 11/24/2019 8:39 [facility] MCHC 34.0 32.8 - 36.4 gm/dL 11/24/2019 8:39 [facility] RDW-CV 13.2 <14.2 % 11/24/2019 8:39 [facility] RDW-SD 44.7 <46.0 fl 11/24/2019 8:39 [facility] PLT 234 141 - 377 K/cmm 11/24/2019 8:39 [facility] MPV 10.8 9.5 - 12.7 fl 11/24/2019 8:39 [facility] % Neutrophils 51.9 % 11/24/2019 8:39 [facility] % Lymphocytes 32.9 % 11/24/2019 8:39 [facility] % Monocytes 7.7 % 11/24/2019 8:39 [facility] % Eosinophils 7.1 % 11/24/2019 8:39 [facility] % Basophils 0.1 % 11/24/2019 8:39 [facility] % Immature Grans 0.3 % 11/24/19 20 8:39 [facility] Absolute Neutrophils 3.65 2.20 - 8.85 K/cmm 11/24/2019 8:39 [facility] Absolute Lymphocytes 2.31 1.09 - 3.30 K/cmm 11/24/2019 8:39 [facility] Absolute Monocytes 0.54 0.10 - 0.80 K/cmm 11/24/2019 8:39 [facility] Absolute Eosinophils 0.50 0.03 - 0.61 K/cmm 11/24/2019 8:39 [facility] ABS Basophils 0.01 0.01 - 0.11 K/cmm 11/24/2019 8:39 [facility] Absolute Immature Grans 0.02 0.00 - 0.06 K/cmm 11/24/2019 8:39 [facility] Type of Differential: Auto 11/24/2019 8:39 [facility] Blood VENOUS BLOOD / Unknown Non-Lab Collect / Unknown 11/24/2019 6:40 EDT 11/24/2019 8:19 EDT us Edson Zepeda MD PACKAGES & DNA PROBE ORDE ARGENTINALES Final Result Performing Organization Address [facility] Co de Phone Number [facility] [address] [place] [address] * CREATININE (11/24/2019 6:40 EDT) Creatinine 0.69 0.66 - 1.25 mg/dL 11/24/2019 8:56 EDT [facility] eGFR 105 >60 mL/min/1.7 3m2 11/24/2019 8:56 EDT [facility] Comment:eGFR calculated sarahi krishnan CKD-EPI equation for non- Americans. Multiply eGFR by 1.16 for patients. Blood VENOUS BLOOD / Unknown Non-Lab Collect / Unknown 11/24/2019 6:40 EDT 11/24/2019 8:19 EDT Edson Zepeda MD CHEMISTRY & BLOOD GAS ORD ERABLES Final Result Performing Organization Address [facility]/ZIP Co de Phone Number [facility] [address] [place] [address] * BUN (11/24/2019 6:40 EDT) Pathologist [facility] BUN 20 10 - 26 mg/dL 11/24/2019 8:56 EDT [facility] Blood VENOUS BLOOD / Unknown Non-Lab Collect / Unknown 11/24/2019 6:40 EDT 11/24/2019 8:19 EDT Edson Zepeda MD CHEMISTRY & BLOOD GAS ORD ERABLES Final Result Performing Organization Address [facility]/ZIP Co de Phone Number [facility] [address] [place] [address] * (ABNORMAL) C REACTIVE PROTEIN (11/24/2019 6:40 EDT) C-Reactive Protein 11.7(H) <10.0 mg/L 11/24/2019 8:56 EDT [facility] Blood VENOUS BLOOD / Unknown Non-Lab Collect / Unknown 11/24/2019 6:40 EDT 11/24/2019 8:19 EDT us Edson Zepeda MD CHEMISTRY & BLOOD GAS ORD ERABLES Final Result [facility] [address] [place] [address] documented in this encounter Visit Diagnoses Diagnosis Other acute osteomyelitis, right ankle and foot ([facility]) Encounter for therapeutic drug level monitoring Encounter for therapeutic drug monitoring documented in this encounter Additional Health Concerns Infection Onset Date Last Indicated Resolved Time R/O COVID-19 Comment:Negative swab 12/22/2020 12/22/2020 12/22/2020 021 7:17 EDT R/O COVID-19 Comment:Negative 02/17/2022 02/17/2022 02/18/2022 7:30 EST Rule-Out C. difficile 02/25/2022 02/25/20222021 12:00 EST R/O COVID-19 04/09/2022 04/09/2022 04/09/2022 16:3 2 EST documented as of this encounter Care Teams Curriculum Director Relationship Specialty Start Date End Date Jason Batres MD [address] [place] [address] PCP - General 07/27/11 12/31/23 [facility] Internal Medicine, [place] [address] [place] [address] PCP - General 01/01/24 Alexus De La O, licensed architect 04/18/22 08/13/23 documented as of this encounter
--- OUTSIDE RECORDS SUMMARY | 2024-02-28 16:48 | XMS_ITS | Encounter Summary ---
Author Organization [facility] Address [address] [place] [address] Care Team Providers Care Auto Mechanics Teacher Name Role Phone Jason Batres MD Primary Care Provi margarita Reason for Visit * Reason Comments Foot Problem Encounter Details Date Type Department Care Team (Latest Contact Info) Description 02/03/2020 13:30 EST Office Visit [facility] Foot & Ankle Program - [address] [address] Angelina Gonzales [facility] [address] [place] [address] Ulcerated, foot, right, with fat layer exposed ([facility]) (Primary Dx); Type 2 diabetes mellitus with diabetic polyneuropathy, with long-term current use of insulin (HCC-CMS); Status post transmetatarsal amputation of foot, right ([facility]) Social History Tobacco Use Types Packs/Day [...] Progress Notes * Angelina Gonzales DPM - 02/03/2020 1330 EST Images from the original note were not included. Jeff Scott is a very pleasant 59 y.o. male patient who presents for follow up right foot ulcer. He reports that he has been using the crutches as much as possible. He does still put some weight onthe foot around the house. He has been trying not to do much. VNA has been coming for dressing changes. He denies any pain in the foot. He denies any nausea, vomiting, fever, chills. Patient Active Problem List Diagnosis Date Noted ??? Diabetic foot infection ([facility]) 10/04/2019 Priority: Medium ??? Acute osteomyelitis of right ankle or foot ([facility]) 10/03/2019 Priority: Medium ??? Hyperplastic polyp of descending colon 08/01/2018 Priority: Medium ??? Type 2 diabetes mellitus with diabetic polyneuropathy, with long-term current use of insulin ([facility]) 06/24/2018 Priority: Medium ??? Acute osteomyelitis of phalanx of foot ([facility]) 03/23/2016 Priority: Medium ??? Hypothyroidism 01/22/2013 Priority: Medium ??? Osteoarthritis of left hip 07/06/2014 ??? 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 Arthritis ??? Back pain ??? Diabetes mellitus ([facility]) ??? Hypothyroidism ??? Wears glasses Past [...] post right foot transmetatarsal amputation. Ulcer dorsally with scabbing and underlying open area, as below. No erythema or edema. No pain on palpation. Ulcer plantarly, as below. Measures 10 x 20 mm. Granular wound base. No [...] Ulcerated, foot, right, with fat layer exposed ([facility]) 2. Type 2 diabetes mellitus with diabetic polyneuropathy, with long-term current use of insulin ([facility]) 3. Status post transmetatarsal amputation of foot, right ([facility]) No orders of the defined types were placed in this encounter. PLAN: Mr. Scott presents today for follow-up right foot ulcer status post transmetatarsal amputation. He does have a small open area dorsally under the scab here. Wound plantarly is slightly smaller since last visit. Remains somewhat superficial with no signs of infection. I debrided both areas lightly today. We discussed these findings. We reviewed that the only way this will heal is for him to be offof his foot. He is going to continue using the crutches and staying off the foot. He is going to continue with VNA for dressing changes, instructions below. I am going to see him back in 1 to 2 weeks. He knows to call before then if any problems arise and is happy with this plan. ?? Instructions for VNA: Change dressing to right foot 3 times a week. Apply Medihoney to both dorsal and plantar ulcers. Apply DSD, Kerlix, KACEY bandage. Please do not apply Coban. He should be nonweightbearing to the right foot. He should be keeping the dressing clean and dry between VNA visits. He has follow up with me on 02/11. Please call with any concerns. Portions of this document have been prepared with speech recognition software or keyboard databases computer consultant techniques. Minor irregularities or keyboarding misprints may be present * Herlinda Navarro LPN - 02/03/2020 1330 EST Call to [facility] with wound care instructions. HERLINDA NAVARRO LPN documented in this encounter Plan of Treatment Not on file documented as of this encounter Visit Diagnoses Diagnosis Ulcerated, foot, right, with fat layer exposed ([facility])- Primary Type 2 diabetes mellitus with diabetic polyneuropathy, with long-term current use of insulin ([facility]) Status post transmetatarsal amputation of foot, right ([facility]) documented in this encounter Care Teams Auto Mechanics Teacher Relationship Specialty Start Date End Date Jason Batres MD [address] [place] [address] PCP - General 07/27/11 12/31/23 documented as of this encounter
--- OUTSIDE RECORDS SUMMARY | 2024-02-28 16:48 | XMS_ITS | Encounter Summary ---
Author Organization [facility] Address [address] [place] [address] Care Team Providers Care Keysmith Name Role Phone Jason Batres MD Primary Care Provi margarita Reason for Visit * Reason Comments Follow-up Encounter Details Date Type Department Care Team (Latest Contact Info) Description 01/06/2020 15:00 EST Office Visit [facility] Foot & Ankle Program - [address] [address] Angelina Gonzales [facility] [address] [place] [address] Ulcerated, foot, right, with fat layer exposed (HCC-CMS) (Primary Dx); Status post transmetatarsal amputation of foot, right (HCC-CMS); Type 2 diabetes mellitus with diabetic polyneuropathy, [...] Progress Notes * Angelina Gonzales DPM - 01/06/2020 1500 EST [facility] FOOT AND ANKLE PROGRAM PROGRESS / FOLLOWUP NOTE - 01/06/2020 HISTORY OF PRESENT ILLNESS: Mr Scott presents today for followup open wound to right transmetatarsal amputation site. He presents today from [facility]. He reports that he has been doing very well. They have been changing the dressing there as instructed. He reports that wound continues to get smaller. He has had very minimal pain in the foot. He has been staying off the foot. Overall, he is feeling well and denies any nausea, vomiting, fever or chills. REVIEW OF SYSTEMS: The patient denies any nausea, vomiting, fever or chills. Currently, denies painin the foot. PHYSICAL EXAMINATION: General: Alert, oriented x3, in no acute distress, presents today in wheelchair. Lower extremity problem focused exam right lower extremity: Status post right foot transmetatarsal amputation. Ulcer to distal aspect of the amputation measures 15 x 10 mm. Granular wound base. Superficial. No probe to bone. No surrounding erythema or edema. Mild peeling skin around the ulcer. No drainage, malodor, necrosis. No pain on probing. The foot is able to get to 90 degrees at the ankle. Manual muscle testing 5/5. Gross protective sensation absent. ASSESSMENT: Mr Scott is doing very well status post right foot transmetatarsal amputation, open. PLAN: I lightly pared down the callus today around the wound. Wound continues to fill-in very nicely and is nearly healed. We discussed that it will likely take another 1-2 months to fully heal. At this point, he can start putting weight on the foot in the surgical shoe. Notes were written to [facility] with these instructions, to work with physical therapy on his weightbearing. We discussed the importance of not overdoing it with walking. I did advise him not to drive with thefoot until the wound is fully healed and he has been fitted for shoes and insoles. Instructions were written for [facility] to continue with the dressing changes as instructed until the wound heals. I am going to see him back in 3-4 weeks. We will get him a prescription for diabetic shoes and insoles once the computer system is running again and when the wound has gotten smaller.We discussed what these are and how these will help prevent re-ulceration of his foot. I am going to see him back in 3-4 weeks. He knows to call before then if any problems arise and he is happy withthis plan. Angelina Gonzales DPM / DB Dictation ID: [id number] cc: documented in this encounter Plan of Treatment Not on file documented as of this encounter Visit Diagnoses Diagnosis Ulcerated, foot, right, with fat layer exposed (HCC-CMS)- Primary Status post transmetatarsal amputation of foot, right ([facility]) Type 2 diabetes mellitus with diabetic polyneuropathy, with long-term current use of insulin ([facility]) documented in this encounter Care Teams Keysmith Relationship Specialty Start Date End Date Jason Batres MD [address] [place] [id number] PCP - General 07/27/11 12/31/23 documented as of this encounter
--- OUTSIDE RECORDS SUMMARY | 2024-02-28 16:48 | XMS_ITS | Encounter Summary ---
Author Organization [facility] Address [address] [place] [address] Care Team Providers Care Wood Machinist Name Role Phone Jason Batres MD Primary Care Provi margarita Reason for Visit * Reason Comments Foot Problem Encounter Details Date Type Department Care Team (Latest Contact Info) Description 02/12/2020 10:[address] [facility] Foot & Ankle Program - [address] [address] Angelina Gonzales [facility] [address] [place] [address] Ulcerated, foot, right, with fat layer exposed ([facility]) (Primary Dx); Type 2 diabetes mellitus with diabetic polyneuropathy, with long-term current use of insulin (HCC-CMS); Status post transmetatarsal amputation of foot, right ([facility]) Social History Tobacco Use [...] Progress Notes * Angelina Gonzales DPM - 02/12/2020 1000 EST Images from the original note were not included. HPI: Jeff Scott is a 59 y.o. male patient who presents for follow up right foot ulcer. He reports that he has been using the crutches as much as possible. Sometimes he forgets them when he is walking around the house. He forgot them today. He has been keeping the dressing clean and dry. VNA has been coming for dressing change appointments. He has not had any pain in the foot. Overall he is feeling well and denies nausea, vomiting, fever, chills. Review of Systems [...] ??Status post right foot transmetatarsal amputation. ??Ulcer dorsally with small open area, as below. ??Granular wound base. Superficial. No erythema or edema. ??No pain on palpation. ??Ulcer plantarly, as below. ??Measures 10 x 20 mm. ??Granular wound base. ??No probe to bone. ??No surrounding erythema or edema. ??No pain on probing. ??No fluctuance. ??Foot is able to get to 90 degrees at the ankle. ??No pain with range of motion of the ankle joint. ??Manual muscle testing 5 out of 5. ??Gross protective sensation absent. ASSESSMENT: 1. Ulcerated, foot, right, with fat layer exposed ([facility]) 2. Type 2 diabetes mellitus with diabetic polyneuropathy, with long-term current use of insulin ([facility]) 3. Status post transmetatarsal amputation of foot, right ([facility]) No orders of the defined types were placed in this encounter. PLAN: Mr. Scott presents today for follow-up right foot ulcer status post transmetatarsal amputation. Dorsal ulcer has nearly healed. Superficial with no signs of infection. Plantar ulcer slightly smaller since last visit. Superficial with no signs of infection. We discussed that the only way this is going to heal is by staying off the foot. He is going to continue with dressing changes with VNA. Continue with crutches. I am going to see him back in 2 to 3 weeks. He knows to call before then if any problems arise and is happy with this plan. Instructions for VNA: Change dressing to right foot 3 times a week. ??Apply Medihoney to both dorsal and plantar ulcers. ??Apply DSD, Kerlix, KACEY bandage.?Please do not apply Coban.?He should be nonweightbearing to the right foot. ??He should be keeping the dressing clean and dry between VNA?? visits. He has follow up with me in 2-3 weeks. Please call with any concerns.?? Portions of this document have been prepared with speech recognition software or keyboard data deliverables manager techniques. Minor irregularities or keyboarding misprints may be present * Herlinda Navarro LPN - 02/12/2020 1000 EST Call to [facility] with wound care instructions. Spoke with carol. HERLINDA NAVARRO LPN documented in this encounter Plan of Treatment Not on file documented as of this encounter Visit Diagnoses Diagnosis Ulcerated, foot, right, with fat layer exposed (HCC-CMS)- Primary Type 2 diabetes mellitus with diabetic polyneuropathy, with long-term current use of insulin (HCC-CMS) Status post transmetatarsal amputation of foot, right (HCC-CMS) documented in this encounter Care Teams Wood Machinist Relationship Specialty Start Date End Date Jason Batres MD [address] [place] [id number] PCP - General 07/27/11 12/31/23 documented as of this encounter
--- OUTSIDE RECORDS SUMMARY | 2024-02-28 16:48 | XMS_ITS | Encounter Summary ---
Author Organization [facility] Address [address] [place] [address] Care Team Providers Care Head Track Coach Name Role Phone Jason Batres MD Primary Care Provi margarita Reason for Visit * Reason Onset Date Comments Medications Refill 04/23/2020 Encounter Details Date Type Department Care Team (Late st Contact Info) Description 04/23/2020 Refill Jason Batres MD, PC [address] [place], [place] [id number] Jason Batres MD [address] [place] [phone] Medications Refill Social History Tobacco Use [...] Last Filled Start Date End Date insulin lispro (HUMALOG KWIKPEN INSULIN) 100 unit/mL injectable pen Inject 10 Units into the skin 3 times daily with meals. 2 Box 3 04/23/2020 01/21/2021 documented in this encounter Miscellaneous Notes * Telephone Encounter - Mena Gomez - 04/23/2020 0945 EST Pt's insurance will not pay for Novolog so Humalog needs to be ordered. Mena Gomez MA documented in this encounter Plan of Treatment Not on file documented as of this encounter Visit Diagnoses Not on filedocumented in this encounter Discontinued Medications Medication Sig Discontinue Reason Start Date End Da te insulin aspart U-100 (NOVOLOG FLEXPEN) 100 unit/mL (3 mL) injectable pen Inject 10 Units into the skin 3 times daily with meals. 04/22/2020 04/23/2020 documented as of this encounter Care Teams Head Track Coach Relationship Specialty Start Date End Date Jason Batres MD [address] [place] [address] PCP - General 07/27/11 12/31/23 documented as of this encounter
--- OUTSIDE RECORDS SUMMARY | 2024-02-28 16:48 | XMS_ITS | Encounter Summary ---
Author Organization [facility] Address [address] [place] [address] Care Team Providers Care Machining Supervisor Name Role Phone Jason Batres MD Primary Care Provi margarita Alexus De La O RN [facility] Internal Medicine, Primary Care Provi margarita Encounter Details Date Type Department Care Team (Late st Contact Info) Description 12/15/2019 Lab Requisition [facility] Pathology & Laboratory Medicine - [facility] [address] [place] [address] Edson Zepeda MD [address] [place] [address] [address] [place] [address] Encounter for other general examination Social [...] Date/Time Associated Diagnosis Comments SED RATE Today 12/15/2019 7:00 EDT Encounter for other general examination COMPLETE BLOOD COUNT AND DIFFERENTIAL Today 12/15/2019 7:00 EDT Encounter for other general examination C REACTIVE PROTEIN Today 12/15/2019 7: 00 EDT Encounter for other general examination BUN Today 12/15/2019 7:00 EDT Encounter for other general examination CREATININE Today 12/15/2019 7:00 EDT Encounter for other general examination documented in this encounter Results * (ABNORMAL) SED. RATE:TEAGAN (12/15/2019 7:00 EDT) Sed Rate 27(H) 0 - 20 mm/hr 12/15/2019 13:46 EDT [facility] Comment:Note: Sample greater than 4 hours old (but less than 12 hours) when tested. If refrigerated, sample is stable when tested within 12 hours of collection. Blood VENOUS BLOOD / Unknown Non-Lab Collect / Unknown 12/15/2019 7:00 EDT 12/15/2019 12:57 EDT us Edson Zepeda MD HEMATOLOGY & PF4 ORDERABL ES Final Result Performing Organization Address [facility]/ZIP Co de Phone Number [facility] [address] [place] [address] * C REACTIVE PROTEIN (12/15/2019 7:00 EDT) [facility] C-Reactive Protein <7.0 <10.0 mg/L 12/15/2019 13:31 EDT [facility] Blood VENOUS BLOOD / Unknown Non-Lab Collect / Unknown 12/15/2019 7:00 EDT 12/15/2019 12:57 EDT us Edson Zepeda MD CHEMISTRY & BLOOD GAS ORD ERABLES Final Result Performing Organization Address [facility] Co de Phone Number [facility] [address] [place] [address] * (ABNORMAL) COMPLETE BLOOD COUNT AND DIFFERENTIAL (12/15/2019 7:00 EDT) [facility] WBC 7.12 4.00 - 10.40 K/cmm 12/15/2019 13:24 EDT [facility] RBC 4.27(L) 4.36 - 5.78 M/cmm 12/15/2019 13:24 [facility] Hemoglobin 13.2(L) 13.8 - 17.3 gm/dL 12/15/2019 13:24 [facility] HCT 38.8(L) 39.5 - 50.2 % 12/15/2019 13:24 T [facility] MCV 91 81 - 95 fl 12/15/2019 13:24 [facility] MCH 30.9 27.6 - 33.0 pg 12/15/2019 13:24 [facility] MCHC 34.0 32.8 - 36.4 gm/dL 12/15/2019 13:24 [facility] RDW-CV 13.3 <14.2 % 12/15/2019 13:24 [facility] RDW-SD 43.8 <46.0 fl 12/15/2019 13:24 [facility] PLT 191 141 - 377 K/cmm 12/15/2019 13:24 [facility] MPV 11.2 9.5 - 12.7 fl 12/15/2019 13:24 [facility] % Neutrophils 54.6 % 12/15/2019 13:24 [facility] % Lymphocytes 32.3 % 12/15/2019 13:24 [facility] % Monocytes 8.8 % 12/15/2019 13:24 [facility] % Eosinophils 3.8 % 12/15/2019 13:24 [facility] % Basophils 0.1 % 12/15/2019 13:24 [facility] % Immature Grans 0.4 % 12/15/19 20 13:24 [facility] Absolute Neutrophils 3.88 2.20 - 8.85 K/cmm 12/15/2019 13:24 [facility] Absolute Lymphocytes 2.30 1.09 - 3.30 K/cmm 12/15/2019 13:24 [facility] Absolute Monocytes 0.63 0.10 - 0.80 K/cmm 12/15/2019 13:24 [facility] Absolute Eosinophils 0.27 0.03 - 0.61 K/cmm 12/15/2019 13:24 [facility] ABS Basophils 0.01 0.01 - 0.11 K/cmm 12/15/2019 13:24 [facility] Absolute Immature Grans 0.03 0.00 - 0.06 K/cmm 12/15/2019 13:24 [facility] Type of Differential: Auto 12/15/2019 13:24 EDT [facility] Blood VENOUS BLOOD / Unknown Non-Lab Collect / Unknown 12/15/2019 7:00 EDT 12/15/2019 12:57 EDT Edson Zepeda MD PACKAGES & DNA PROBE ORDE RABLES Final Result Performing Organization Address [facility] Co de Phone Number [facility] [address] [place] [address] * (ABNORMAL) CREATININE (12/15/2019 7:00 EDT) Creatinine 0.63(L) 0.66 - 1.25 mg/dL 12/15/2019 13:31 EDT [facility] eGFR 109 >60 mL/min/1.7 3m2 12/15/2019 13:31 EDT [facility] Comment:eGFR calculated sarahi krishnan CKD-EPI equation for non- Americans. Multiply eGFR by 1.16 for patients. Blood VENOUS BLOOD / Unknown Non-Lab Collect / Unknown 12/15/2019 7:00 EDT 12/15/2019 12:57 EDT Edson Zepeda MD CHEMISTRY & BLOOD GAS ORD ERABLES Final Result Performing Organization Address [facility] Co de Phone Number [facility] [address] [place] [phone] * BUN (12/15/2019 7:00 EDT) BUN 18 10 - 26 mg/dL 12/15/2019 13:31 EDT [facility] Blood VENOUS BLOOD / Unknown Non-Lab Collect / Unknown 12/15/2019 7:00 EDT 12/15/2019 12:57 EDT us Edson Zepeda MD CHEMISTRY & BLOOD GAS ORD ERABLES Final Result Performing Organization Address City/[facility]/ZIP Co de Phone Number [facility] [address] [place] [address] documented in this encounter Visit Diagnoses Diagnosis [...] documented as of this encounter Care Teams Machining Supervisor Relationship Specialty Start Date End Date Jason Batres MD [address] [place] [address] PCP - General 07/27/11 12/31/23 [facility] Internal Medicine, [facility] [address] [place] [address] PCP - General 01/01/24 Alexus De La O, aircraft instrument mechanic 04/18/22 08/13/23 documented as of this encounter
--- OUTSIDE RECORDS SUMMARY | 2024-02-28 16:48 | XMS_ITS | Encounter Summary ---
Author Organization [facility] Address [address] [place] [address] Care Team Providers Care Intake Clinician Name Role Phone Jason aBtres MD Primary Care Provi margarita Reason for Visit * Reason Comments Follow-up Encounter Details Date Type Department Care Team (Late st Contact Info) Description 11/11/2019 10:30 EDT Telemedicine [facility] Infectious Disease - [facility] [address] [place], [place] [phone] Glenys Desir, MICHELET [address] [facility], [address] [place] [address] Acute osteomyelitis of phalanx of right foot [...] have Coronavirus / COVID-19? No / Unsure 10/24/2019 13:28 EDT documented as of this encounter Functional [...] documented in this encounter Progress Notes * Glenys Desir APRN - 11/11/2019 1030 EDT Attached media from the original note were not included. Picture attached. * Glenys Desir APRN - 11/11/2019 1030 EDT INFECTIOUS DISEASES Follow Up Division of Infectious Disease Follow up/Progress Note 11/11/19 10:44 TELEMEDICINE VIDEO VISIT Today's visit was provided through telemedicine video conferencing: The location of the patient : Home The location of the provider: Home The following staff and their role did participate in today's encounter visit: Glenys Desir APRN The concept of ???Telemedicine?? has been described [...] in patient???s medical or mental health care. HPI Jeff Scott presented on 10/04/2019 with an extensive infection of his right foot second ray. He was admitted and started on broad-spectrum antibiotics. On 10/05/2019 he went underwent the above procedure with Dr. Virgilio Ramirez. He was then taken back to the OR on 10/09/2019 with Glenys Gonzales for right TMA. He had daily wet-to-dry dressing changes through 10/13/2019, after which a wound VAC was placed and patient underwent Sunday wound VAC changes. Infectious disease was consulted and he was continued on empiric vancomycin, cefepime, and metronidazole through 10/13/2019 then was changed to Unasyn. On 10/13, pathology came back showing acute osteomyelitis extending to the bone rese ction margins; therefore, antibiotic was changed to ertapenem with plan for 6 weeks of daily treatment. PICC was placed. Continues to reside at [facility]. Recently saw. Dr Gonzales- plantar flap has healed, dorsal wound is filling in nicely with no signs ofinfection. No longer having pain in foot. Wound Vac is going to be continued with continued strict nonweightbearing- occassionaly bears weight on his foot accidentally. REVIEW OF SYSTEMS: 10-point review of systems is negative except as mentioned above ALLERGIES: No Known Allergies MEDICATIONS: Reviewed in MAY. PHYSICAL EXAM: VS: There were no vitals taken for this visit. GENL: pleasant, NAD PSYCH: non-anxious, normal affect ACCESS: pIV LABORATORY: Reviewed in detail in PRISM. WBC/RBC/HGB/HCT/PLT/ANC5.53/3.78/11.8/34.5/175/3.44 (11/09 1027) Estimated Creatinine Clearance: 182.5 mL/min (A) (by C-G formula based on SCr of 0.59 mg/dL (L)). MICROBIOLOGY DATA: Reviewed in detail in PRISM. Pertinent for: 11/10/2019 Sed Rate 42 C Reactive Protein <7.0 WBC 5.53 Creatinine 0.59 BUN 18 10/26 Creatinine 0.58 WBC 5.45 C-reactive protein <7.0 Sed Rate 82 10/02 blood culture: negative - 10/03 R foot tissue: mixed martine - 10/03 R foot tissue: MSSA - 10/04 OR bone cultures: Strep anginosus, Entercoccus avium, E coli MSSA, Alcaligenes faecalis; bacteroides fragilis, Staph simulans, Strep intermedius, IMAGING DATA: I have independently reviewed the available imaging. - 10/03 MRI R foot: 1. Abnormal proximal 2nd phalanx, likely necrotic bone as sequela of osteomyelitis, with adjacent gas, pockets of fluid. 2. Diffuse soft tissue edema with multiple foci of gas over the dorsal aspect of the right forefoot and midfoot concerning for progressive soft tissue infection. 3. Focal area of STIR hyperintensity over the plantar aspect of the foot between the 1st and 2nd metatarsals without circumscribed rim enhancement, likely confluent edema in and adjacent to ulcer. 4. Marrow edema and heterogeneous enhancement of the 2nd and 3rd metatarsal heads concerning for osteomyelitis. - 10/03 CXR: normal - 10/06 R foot xray: Status post partial dilatation of the right 2nd and 3rd metatarsals with associated changes to the soft tissue. No additional regions of cortical irregularity loosening are identified. 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 He is now s/p TMA on 10/08; Op note suggests no grossproximal extension of infection; however, the pathology shows acute osteomyelitis extending to the bone resection margin. Thus, 6 weeks of intravenous antibiotics is indicated. Doing well on the Ertapenem. Wound is healing nicely. Labs stable. RECOMMENDATIONS: - Ertapenem 1g IV Q24H until 11/19/2019 - Weekly zoom visits - Weekly CBC/dif, BMP, ESR/CRP while on IV abx documented in this encounter Plan of Treatment Not on file documented as of this encounter Visit Diagnoses Diagnosis Acute osteomyelitis of phalanx of right foot (HCC-CMS)- Primary documented in this encounter Care Teams Intake Clinician Relationship Specialty Start Date End Date Jason Batres MD [address] [place] [address] PCP - General 07/27/11 12/31/23 documented as of this encounter
--- OUTSIDE RECORDS SUMMARY | 2024-02-28 16:48 | XMS_ITS | Encounter Summary ---
Author Organization [facility] Address [address] [place] [address] Care Team Providers Care Sawmill Manager Name Role Phone Jason Batres MD Primary Care Provi margarita Reason for Visit * Reason Comments Foot Problem Encounter Details Date Type Department Care Team (Latest Contact Info) Description 03/02/2020 10:00 EST Office Visit [facility] Foot & Ankle Program - [address] [address] Angelina Gonzales [facility] [address] [place] [address] Ulcerated, foot, right, with fat layer exposed ([facility]) (Primary Dx); Type 2 diabetes mellitus with diabetic polyneuropathy, with long-term current use of insulin (HCC-CMS); Status post transmetatarsal amputation of foot, right ([facility]) Social History Tobacco Use Types Packs/Day [...] Progress Notes * Angelina Gonzales DPM - 03/02/2020 1000 EST Images from the original note were not included. Jeff Scott is a very pleasant 59 y.o. male patient who presents for follow up right foot ulcer. He reports that he has been doing well. He has been trying to stay off the foot is much as he is able. He did bang the foot earlier this week and had a lot of discomfort in the foot. He checked it anddid not notice any signs of infection or worsening of the wound. VNA has been coming for dressing appointments. He currently denies any pain in the foot. He denies nausea, vomiting, fever, chills. Patient Active Problem List Diagnosis Date Noted ??? Diabetic foot infection ([facility]) 10/04/2019 Priority: Medium ??? Acute osteomyelitis of right ankle or foot ([facility]) 10/03/2019 Priority: Medium ??? Hyperplastic polyp of descending colon 08/01/2018 Priority: Medium ??? Type 2 diabetes mellitus with diabetic polyneuropathy, with long-term current use of insulin ([facility]) 06/24/2018 Priority: Medium ??? Acute osteomyelitis of phalanx of foot ([facility]) 03/23/2016 Priority: Medium ??? Hypothyroidism 01/22/2013 Priority: Medium ??? Osteoarthritis of left hip 07/06/2014 ??? 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 Craniopharyngioma ([facility]) 09/19/2010 ??? 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 Arthritis ??? Back pain ??? Diabetes mellitus ([facility]) ??? Hypothyroidism ??? Wears glasses [...] mg by mouth 2 times daily. ??? sodium chloride 0.9 %, flush, flush [...] 8 hours as needed for Pain. Daily Max:150 mg 60 Tab 0 No current facility-administered [...] post right foot transmetatarsal amputation. ??Ulcer dorsally??well healed.?Ulcer plantarly, as below. ??Measures 10??x 18 mm. ??Surrounding hyperkeratotic tissue. Granular wound base. ??No probe to bone. ??No surrounding erythema or edema.??No pain on probing. ??No fluctuance. ??Foot is able to get to 90 degrees at the ankle. ??No pain with range of motion of the ankle joint. ??Manual muscle testing 5 out of 5. ??Gross protective sensation absent. Plantar R foot: Dorsal R foot: ASSESSMENT: 1. Ulcerated, foot, right, with fat layer exposed ([facility]) 2. Type 2 diabetes mellitus with diabetic polyneuropathy, with long-term current use of insulin ([facility]) 3. Status post transmetatarsal amputation of foot, right ([facility]) No orders of the defined types were placed in this encounter. PLAN: Mr. Scott presents today for follow-up right foot ulcer status post transmetatarsal amputation. Dorsal ulcer has healed. Plantar ulcer slightly smaller since last visit. No signs of infection. We reviewed the importance of staying off the foot to get this to heal. He is going to continue with dressing changes with VNA. I am going to see him back in 2 to 3 weeks. He knows to call before then if any problems arise and is happy with this plan. Instructions for VNA: Change dressing to right foot 3 times a week. Dorsal ulcer has healed.??ApplyMedihoney to??plantar ulcer. ??Apply DSD, Kerlix, KACEY bandage.?Please do not apply Coban.?He should be nonweightbearing to the right foot. ??He should be keeping the dressing clean and dry between VNA??visits. He has follow up with me??in 2-3 weeks. Please call with any concerns.?? Portions of this document have been prepared with speech recognition software or keyboard marketing database coordinator techniques. Minor irregularities or keyboarding misprints may be present * Herlinda Navarro LPN - 03/02/2020 1000 EST Call to [facility], spoke with Rey, with wound care instructions. Note in epic. HERLINDA NAVARRO LPN documented in this encounter Plan of Treatment Not on file documented as of this encounter Visit Diagnoses Diagnosis Ulcerated, foot, right, with fat layer exposed (HCC-CMS)- Primary Type 2 diabetes mellitus with diabetic polyneuropathy, with long-term current use of insulin (HCC-CMS) Status post transmetatarsal amputation of foot, right (HCC-CMS) documented in this encounter Care Teams Sawmill Manager Relationship Specialty Start Date End Date Jason Batres MD [address] [place] [id number] PCP - General 07/27/11 12/31/23 documented as of this encounter
--- OUTSIDE RECORDS SUMMARY | 2024-02-28 16:48 | XMS_ITS | Encounter Summary ---
Author Organization [facility] Address [address] [place] [address] Care Team Providers Care Cosmetic Dentist Name Role Phone Jason Batres MD Primary Care Provi margarita Reason for Visit * Reason Comments Diabetes Encounter Details Date Type Department Care Team (Late st Contact Info) Description 04/22/2020 9:30 EST Telemedicine Jason Batres MD, PC [address], [place] [id number] Jason Batres MD [address] [place] [address] Type 2 diabetes mellitus with diabetic polyneuropathy, without long-term current use of insulin ([facility]) (Primary Dx); Acute osteomyelitis of phalanx of right foot (HCC-CMS) Social History Tobacco Use Types Packs/Day [...] Start Date End Date insulin glargine (LANTUS SOLOSTAR) 100 unit/mL (3 mL) injection pen Inject 45 Units into the skin at bedtime. 2 Box 2 04/22/2020 01/21/2021 insulin aspart U-100 (NOVOLOG FLEXPEN) 100 unit/mL (3 mL) injectable pen Inject 10 Units into the skin 3 times daily with meals. 2 Box 3 04/22/2020 04/23/2020 traMADol (ULTRAM) 50 mg tablet Take 1 Tab by mouth 2 times daily as needed for Pain. Daily Max: 100 mg 60 Tab 1 04/22/2020 05/20/2020 atorvastatin (LIPITOR) 20 mg tablet Take 1 Tab by mouth daily. 90 Tab 3 04/22/2020 11/18/2021 SITagliptin (JANUVIA) 100 mg tablet Take 1 Tab by mouth daily. 90 Tab 3 04/22/2020 01/21/2021 levothyroxine (SYNTHROID) 112 mcg tablet Take 1 Tab by mouth daily. 90 Tab 3 04/22/2020 11/18/2021 metFORMIN (GLUCOPHAGE) 500 mg tablet Take 1 Tab by mouth 2 times daily. 180 Tab 3 04/22/2020 01/21/2021 documented in this encounter Progress Notes * Jason Batres MD - 04/22/2020 0995 EST The concept of ???Telemedicine?? has been [...] complaint on file. ZEKE Aguilar was at [facility] for about 3 months. He has now been home since early January. He says the people at [facility] were excellent and worked with him on therapy and getting his strength back. He has continued to see Dr. Gonzales since that time. He also has help from [facility] who [...] has been and it is improving. Jeff says he has been doing well at home. He continues to see Dr. Gonzales about every 3 weeks. He isstill getting home health nursing. They come in Sunday, Sunday, and Sunday. He stays off the foot and uses crutches. He says I'm working so hard art being good. Dr. Gonzales's instructions for the wound are to Change dressing to right foot 3 times a week.??Dorsal ulcer has healed. Apply moisturizing lotion, thin layer, to dry skin dorsally.??Apply Medihoney to??plantar ulcer. ??Apply DSD, Kerlix, KACEY bandage.?Please do not apply Coban. ?He should be nonweightbearing to the right foot. ??He should be keeping the dressing clean and dry between VNA??visits. There is still a lot of pain- there is a throbbing aching pain. It is better if his foot is elevated but worse when he does the dishes. He uses tramadol but he used it up and has been out for a week and the pain is worse since then. He decreased from TID to BID- he would take it at lunch and then before bed only. He also is out of his Januvia , synthroid, and metformin. He did not list a statin- but our list says he should be on atorvastatin so I will send this in. Social Current Outpatient Medications on File Prior [...] pandemic this visit was done over telehealth I will give him 60 pills as he is taking it BID and he needs a visit in one month He did acknowledge verbally that he understands the risk of opioids and wishes to continue for now,but is hoping he can decrease the use as his pain is improving. 2. Diabetes His last A1C was 11.1 in December- he tells me he is now taking his insulin He will schedule a visit in 3-4 weeks and I will check an A1C then. I refilled his statin, metformin, and januvia today 3. Hypothyroid Refilled synthroid today as well - can check this when he is next in met Jason Batres MD documented in this encounter Miscellaneous Notes * Addendum Note - Jason Batres MD - 04/22/2020 0930 ESTAddended by: JASON BATRES on: 04/22/2020 16:04 Modules accepted: Orders documented in this encounter Plan of Treatment Not on file documented as of this encounter Visit Diagnoses Diagnosis Type 2 diabetes mellitus with diabetic polyneuropathy, without long-term current use of insulin ([facility])- Primary Acute osteomyelitis of phalanx of right foot ([facility]) documented in this encounter Discontinued Medications Medication Sig Discontinue Reason Start Date End Da te levothyroxine (SYNTHROID) 112 mcg tablet Take 1 Tab by mouth daily. Reorder 01/10/2019 04/22/2020 atorvastatin (LIPITOR) 20 mg tablet TAKE ONE TABLET BY MOUTH ONE TIME DAILY Reorder 09/01/2019 04/22/2020 metFORMIN (GLUCOPHAGE) 500 mg tablet Take 500 mg by mouth 2 times daily. Reorder 04/22/2020 traMADol (ULTRAM) 50 mg tablet Take 1 Tab by mouth every 8 hours as needed for Pain. Daily Max: 150 mg Reorder 03/02/2020 04/22/2020 insulin aspart U-100 (NOVOLOG FLEXPEN) 100 unit/mL (3 mL) injectable pen Inject 10 Units into the skin 3 times daily with meals. Reorder 10/15/2019 04/22/2020 insulin glargine (LANTUS SOLOSTAR) 100 unit/mL (3 mL) injection pen Inject 45 Units into the skin at bedtime. Reorder 10/15/2019 04/22/2020 documented as of this encounter Care Teams Cosmetic Dentist Relationship Specialty Start Date End Date Jason Batres MD [address] [place] [phone] (Work) PCP - General 07/27/11 12/31/23 documented as of this encounter
--- OUTSIDE RECORDS SUMMARY | 2024-02-28 16:48 | XMS_ITS | Encounter Summary ---
Author Organization [facility] Address [address] [place] [address] Care Team Providers Care Rn Residential Name Role Phone Jason Batres MD Primary Care Provi margarita Encounter Details Date Type Department Care Team (Late st Contact Info) Description 02/02/2020 Orders Only [facility] Foot & Ankle Program - [address] [phone] Angelina Gonzales, [address] [place] [address] Ulcerated, foot, right, with fat layer exposed ([facility]) (Primary Dx); Type 2 diabetes mellitus with diabetic polyneuropathy, with long-term current use of insulin ([facility]) Social History Tobacco Use Types Packs/Day [...] Ulcerated, foot, right, with fat layer exposed ([facility])- Primary Type 2 diabetes mellitus with diabetic polyneuropathy, with long-term current use of insulin ([facility]) documented in this encounter Orders Equipment Count Last Ordered Date First Orde red Date GENERIC ORTHO VENDOR DME 1 02/02/2020 documented in this encounter Care Teams Rn Residential Relationship Specialty Start Date End Date Jason Batres MD [address] [place] [id number] PCP - General 07/27/11 12/31/23 documented as of this encounter
--- OUTSIDE RECORDS SUMMARY | 2024-02-28 16:48 | XMS_ITS | Encounter Summary ---
Author Organization [facility] Address [address] [place] [address] Care Team Providers Care Tower Supervisor Name Role Phone Jason Batres MD Primary Care Provi margarita Encounter Details Date Type Department Care Team (Latest Contact Info) Description 11/14/2019 Travel Social History Tobacco Use Types Packs/Day [...] on filedocumented in this encounter Care Teams Tower Supervisor Relationship Specialty Start Date End Date Jason Batres MD [address] [place] [id number] PCP - General 07/27/11 12/31/23 documented as of this encounter
--- OUTSIDE RECORDS SUMMARY | 2024-02-28 16:48 | XMS_ITS | Encounter Summary ---
Author Organization [facility] Address [address] [place] [address] Care Team Providers Care Blade Operator Name Role Phone Jason Batres MD Primary Care Provi margarita Reason for Visit * Reason Onset Date Comments Update 12/15/2019 Encounter Details Date Type Department Care Team (Late st Contact Info) Description 12/15/2019 Telephone [facility] Foot & Ankle Program - [address] [address] Angelina Gonzales [address] [place] [address] Update Social History Tobacco Use [...] encounter Miscellaneous Notes * Telephone Encounter - Angelina Gonzales DPM - 12/15/2019 0925 EDT Left message with Nguyen this morning to touch base about discharge plans from [facility] for her Jeff. Left office number to call back. documented in this encounter Plan of Treatment Not on file documented as of this encounter Visit Diagnoses Not on filedocumented in this encounter Care Teams Blade Operator Relationship Specialty Start Date End Date Jason Batres MD [address] [place] [address] PCP - General 07/27/11 12/31/23 documented as of this encounter
--- OUTSIDE RECORDS SUMMARY | 2024-02-28 16:48 | XMS_ITS | Encounter Summary ---
Author Organization [facility] Address [address] [place] [address] Care Team Providers Care Information Lead Name Role Phone Jason Batres MD Primary Care Provi margarita Reason for Visit * Reason Comments Foot Problem Encounter Details Date Type Department Care Team (Latest Contact Info) Description 03/23/2020 14:00 EST Office Visit [facility] Foot & Ankle Program - [address] [address] Angelina Gonzales, [facility] [address] [place] [address] Ulcerated, foot, right, with fat layer exposed ([facility]) (Primary Dx); Type 2 diabetes mellitus with diabetic polyneuropathy, with long-term current use of insulin (HCC-CMS); Status post transmetatarsal amputation of foot, right ([facility]) Social History Tobacco Use Types [...] Progress Notes * Angelina Gonzales, BRENDA - 03/23/2020 1400 EST Images from the original note were not included. Jeff Scott is a very pleasant 59 y.o. male patient who presents for follow up right foot ulcer. He reports he has been doing well. He has been staying off the foot using the crutches. [facility]NA has beencoming for dressing changes and he reports that the wound has been getting smaller. He denies any pain in the foot. Overall he is feeling well and denies nausea, vomiting, fever, chills. Patient Active Problem List Diagnosis Date Noted ??? Diabetic foot infection ([facility]) 10/04/2019 Priority: Medium ??? Acute osteomyelitis of right ankle or foot ([facility]) 10/03/2019 Priority: Medium ??? Hyperplastic polyp of descending colon 08/01/2018 Priority: Medium ??? Type 2 diabetes mellitus with diabetic polyneuropathy, with long-term current use of insulin ([facility]) 06/24/2018 Priority: Medium ??? Acute osteomyelitis of phalanx of foot ([facility]) 03/23/2016 Priority: Medium ??? Hypothyroidism 01/22/2013 Priority: Medium ??? Osteoarthritis of left hip 07/06/2014 ??? 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 Arthritis ??? Back pain ??? Diabetes mellitus ([facility]) ??? Hypothyroidism ??? Wears glasses Past [...] ??Ulcer dorsally??well healed.?Ulcer plantarly, as below. ??Measures 12 x 5 mm. ??Surrounding hy perkeratotic tissue. Granular wound base. ??No probe to bone. ??No surrounding erythema or edema. ??No pain on probing. ??No fluctuance. ??Foot is able to get to 90 degrees at the ankle. ??No pain with range of motion of the ankle joint. ??Manual muscle testing 5 out of 5. ??Gross protective sensation absent. ASSESSMENT: 1. Ulcerated, foot, right, with fat layer exposed ([facility]) 2. Type 2 diabetes mellitus with diabetic polyneuropathy, with long-term current use of insulin ([facility]) 3. Status post transmetatarsal amputation of foot, right ([facility]) No orders of the defined types were placed in this encounter. PLAN: Mr. Scott presents today for follow-up right foot ulcer status post transmetatarsal amputation. This has improved in size and appearance. No signs of infection today. I did pare down the surrounding callus today. He is going to continue with dressing changes with [facility]NA. He is going to continue to stay off the foot with the crutches. I am going to see him back in 2 to 3 weeks. He knows to call before then if any problems arise and is happy with this plan. Instructions for VNA: Change dressing to right foot 3 times a week. Dorsal ulcer has healed.??ApplyMedihoney to??plantar ulcer. ??Apply DSD, Kerlix, KACEY bandage.?Please do not apply Coban. ?Heshould be nonweightbearing to the right foot. ??He should be keeping the dressing clean and dry between VNA??visits. He has follow up with me??in 2-3 weeks. Please call with any concerns.?? Portions of this document have been prepared with speech recognition software or keyboard junior database administrator techniques. Minor irregularities or keyboarding misprints may be present * Herlinda Navarro LPN - 03/23/2020 1400 EST Call to [facility] with wound care instructions, spoke with Nataliia. Note is in epic. HERLINDA NAVARRO LPN documented in this encounter Plan of Treatment Not on file documented as of this encounter Visit Diagnoses Diagnosis Ulcerated, foot, right, with fat layer exposed (HCC-CMS)- Primary Type 2 diabetes mellitus with diabetic polyneuropathy, with long-term current use of insulin (HCC-CMS) Status post transmetatarsal amputation of foot, right (HCC-CMS) documented in this encounter Care Teams Information Lead Relationship Specialty Start Date End Date Jason Batres MD [address] [place] [address] PCP - General 07/27/11 12/31/23 documented as of this encounter
--- OUTSIDE RECORDS SUMMARY | 2024-02-28 16:48 | XMS_ITS | Encounter Summary ---
Author Organization [facility] Address [address] [place] [address] Care Team Providers Care Renal Dietitian Name Role Phone Jason Batres MD Primary Care Provi margarita Alexus De La O RN Unavailable [facility] Internal Medicine, Primary Care Provi margarita Encounter Details Date Type Department Care Team (Late st Contact Info) Description 12/01/2019 Lab Requisition [facility] Pathology & Laboratory Medicine - [facility] [address] [place] [address] Edson Zepeda MD [address] [place] [address] [address] [place] [address] Other acute osteomyelitis, right ankle [...] Date/Time Associated Diagnosis Comments COMPLETE BLOOD COUNT Today 12/01/2019 7:00 EDT Other acute osteomyelitis, right ankle and foot (HCC-CMS) BUN Today 12/01/2019 7:00 EDT Other acute osteomyelitis, right ankle and foot (HCC-CMS) documented in this encounter Results * (ABNORMAL) COMPLETE BLOOD COUNT (12/01/2019 7:00 EDT) WBC 7.07 4.00 - 10.40 K/cmm 12/01/2019 13:06 [facility] RBC 4.34(L) 4.36 - 5.78 M/cmm 12/01/2019 13:06 [facility] Hemoglobin 13.3(L) 13.8 - 17.3 gm/dL 12/01/2019 13:06 [facility] HCT 38.6(L) 39.5 - 50.2 % 12/01/2019 13:06 [facility] MCV 89 81 - 95 fl 12/01/2019 13:06 [facility] MCH 30.6 27.6 - 33.0 pg 12/01/2019 13:06 [facility] MCHC 34.5 32.8 - 36.4 gm/dL 12/01/2019 13:06 [facility] RDW-CV 13.2 <14.2 % 12/01/2019 13:06 [facility] RDW-SD 43.3 <46.0 fl 12/01/2019 13:06 [facility] PLT 230 141 - 377 K/cmm 12/01/2019 13:06 [facility] MPV 11.5 9.5 - 12.7 fl 12/01/2019 13:06 [facility] Blood VENOUS BLOOD / Unknown Non-Lab Collect / Unknown 12/01/2019 7:00 EDT 12/01/2019 12:30 EDT us Edson Zepeda MD HEMATOLOGY & PF4 ORDERABL ES Final Result [facility] [address] [place] [address] * BUN (12/01/2019 7:00 EDT) BUN 20 10 - 26 mg/dL 12/01/2019 13:07 T [facility] Blood VENOUS BLOOD / Unknown Non-Lab Collect / Unknown 12/01/2019 7:00 EDT 12/01/2019 12:30 EDT us Edson Zepeda MD CHEMISTRY & BLOOD GAS ORD ERABLES Final Result [facility] [address] [place] [address] documented in this encounter Visit Diagnoses Diagnosis Other acute osteomyelitis, right ankle and foot ([facility]) Encounter for therapeutic drug level monitoring [...] documented as of this encounter Care Teams Renal Dietitian Relationship Specialty Start Date End Date Jason Batres MD [address] [place] [address] PCP - General 07/27/11 12/31/23 [facility] Internal Medicine, [facility] [address] [place] [address] PCP - General 01/01/24 Alexus De La O, speech therapist 04/18/22 08/13/23 documented as of this encounter
--- OUTSIDE RECORDS SUMMARY | 2024-02-28 16:48 | XMS_ITS | Encounter Summary ---
Author Organization [facility] Address [address] [place] [address] Care Team Providers Care Surface Water Manager Name Role Phone Jason Batres MD Primary Care Provi margarita Reason for Visit * Reason Comments Foot Problem Encounter Details Date Type Department Care Team (Latest Contact Info) Description 04/13/2020 13:30 EST Office Visit [facility] Foot & Ankle Program - [address] [address] Angelina Gonzales [facility] [address] [place] [address] Ulcerated, foot, right, with fat layer exposed ([facility]) (Primary Dx); Type 2 diabetes mellitus with diabetic polyneuropathy, with long-term current use of insulin (HCC-CMS); Status post transmetatarsal amputation of foot, right ([facility]) Social History Tobacco Use Types Packs/Day [...] Progress Notes * Angelina Gonzales DPM - 04/13/2020 1330 EST Images from the original note were not included. Jeff Scott is a very pleasant 59 y.o. male patient who presents for follow up chronic right footulcer s/p transmetatarsal amputation. He reports that he has been doing well. Visiting nursing has been coming and they report that the ulcer is getting smaller. He has been trying to stay off his foot is much as possible with the crutches. Overall he is feeling well denies nausea, vomiting, fever, chills. Patient Active Problem List Diagnosis Date Noted ??? Diabetic foot infection ([facility]) 10/04/2019 Priority: Medium ??? Acute osteomyelitis of right ankle or foot ([facility]) 10/03/2019 Priority: Medium ??? Hyperplastic polyp of descending colon 08/01/2018 Priority: Medium ??? Type 2 diabetes mellitus with diabetic polyneuropathy, with long-term current use of insulin ([facility]) 06/24/2018 Priority: Medium ??? Acute osteomyelitis of phalanx of foot ([facility]) 03/23/2016 Priority: Medium ??? Hypothyroidism 01/22/2013 Priority: Medium ??? Osteoarthritis of left hip 07/06/2014 ??? 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 Arthritis ??? Back pain ??? Diabetes mellitus ([facility]) ??? Hypothyroidism ??? Wears glasses Past [...] right foot transmetatarsal amputation. ??Ulcer dorsally??well healed.?Xerosis dorsally. Ulcer plantarly, as below. ??Measures 8 x 3??mm. ??Surrounding hyperkeratotic tissue with mild buildup.??Granular wound base. ??No probe to bone. ??No surrounding erythema or edema. ??No pain on probing. ??No fluctuance. ??Foot is able to get to 90 degrees at the ankle. ??No pain with range of motion of the ankle joint. ??Manual muscle testing 5 out of 5. ??Gross protective sensation absent. Right plantar foot: ASSESSMENT: 1. Ulcerated, foot, right, with fat layer exposed ([facility]) 2. Type 2 diabetes mellitus with diabetic polyneuropathy, with long-term current use of insulin ([facility]) 3. Status post transmetatarsal amputation of foot, right ([facility]) No orders of the defined types [...] am going to see him back in 3 weeks. He knows to call before then if any problems arise and is happy with this plan. ?? Instructions for VNA: Change dressing to right foot 3 times a week.??Dorsal ulcer has healed. Applymoisturizing lotion, thin layer, to dry skin dorsally.??Apply Medihoney to??plantar ulcer. ??Apply DSD, Kerlix, KACEY bandage.?Please do not apply Coban. ?He should be nonweightbearing to the right foot. ??He should be keeping the dressing clean and dry between VNA??visits. He has follow up with me??in 3 weeks. Please call with any concerns.? Portions of this document have been prepared with speech recognition software or keyboard data entry clerk techniques. Minor irregularities or keyboarding misprints may be present * Herlinda Navarro LPN - 04/13/2020 1330 EST Call to [facility] with wound care instructions, spoke with Yumi. Note is in epic. HERLINDA NAVARRO LPN documented in this encounter Plan of Treatment Not on file documented as of this encounter Visit Diagnoses Diagnosis Ulcerated, foot, right, with fat layer exposed (HCC-CMS)- Primary Type 2 diabetes mellitus with diabetic polyneuropathy, with long-term current use of insulin (HCC-CMS) Status post transmetatarsal amputation of foot, right (HCC-CMS) documented in this encounter Care Teams Surface Water Manager Relationship Specialty Start Date End Date Jason Batres MD [address] [place] [address] PCP - General 07/27/11 12/31/23 documented as of this encounter
--- OUTSIDE RECORDS SUMMARY | 2024-02-28 16:48 | XMS_ITS | Encounter Summary ---
Author Organization [facility] Address [address] [place] [address] Care Team Providers Care Granite Polisher Name Role Phone Jason Batres MD Primary Care Provi margarita Reason for Visit * Reason Onset Date Comments Post Op Question 11/17/2019 Encounter Details Date Type Department Care Team (Late st Contact Info) Description 11/17/2019 Telephone [facility] Foot [facility]le Program - [address] [address] Angelina Gonzales, [facility] [address] [place] [address] Post Op Question Social History Tobacco Use Types Packs/Day Years [...] encounter Miscellaneous Notes * Telephone Encounter - Tommy Desai LPN - 11/17/2019 1104 EDT Received a call from [facility] and rehab with regard to Critz weight bearing status. They want to know if he can be weight bearing on his heel only as the only thing he has left to do with PT there is go up and down stairs and they say they can't do that without him being able to bear weight on that foot (heel). They also would to do something different with his dressing changes if that is ok. They apparently don't do dressing changes with betadine or wet to dry dressings. documented in this encounter Plan of Treatment Not on file documented as of this encounter Visit Diagnoses Not on filedocumented in this encounter Care Teams Granite Polisher Relationship Specialty Start Date End Date Jason Batres MD [address] [place] [id number] PCP - General 07/27/11 12/31/23 documented as of this encounter
--- OUTSIDE RECORDS SUMMARY | 2024-02-28 16:48 | XMS_ITS | Encounter Summary ---
Author Organization [facility] Address [address] [place] [address] Care Team Providers Care Hand Model Name Role Phone Jason Batres MD Primary Care Provi margarita Reason for Visit * Reason Comments Foot Problem Encounter Details Date Type Department Care Team (Latest Contact Info) Description 12/12/2019 11:00 EDT Office Visit [facility] Foot & Ankle Program - [address] [address] Angelina Gonzales [facility] [address] [place] [address] Ulcerated, foot, right, with fat layer exposed ([facility]) (Primary Dx); Status post transmetatarsal [...] Progress Notes * Angelina Gonzales DPM - 12/12/2019 1100 EDT Images from the original note were not included. Jeff Scott is a very pleasant 58 y.o. male patient who presents for follow up 9 weeks status post left transmetatarsal amputation with dorsal debridement and wound VAC application. He presents today from [facility]. He reports that he has been doing well. Minimal pain in the foot. No pain in the foot today. He has been doing the daily dressing changes, by nursing. He has been staying off the foot. Overall he is feeling well denies any nausea, vomiting, fever, chills. Patient Active Problem List Diagnosis Date Noted ??? Diabetic foot infection ([facility]) 10/04/2019 Priority: Medium ??? Acute osteomyelitis of right ankle or foot ([facility]) 10/03/2019 Priority: Medium ??? Hyperplastic polyp of descending colon 08/01/2018 Priority: Medium ??? Type 2 diabetes mellitus with diabetic polyneuropathy, with long-term current use of insulin ([facility]) 06/24/2018 Priority: Medium ??? Acute osteomyelitis of phalanx of foot ([facility]) 03/23/2016 Priority: Medium ??? Hypothyroidism 01/22/2013 Priority: Medium ??? Osteoarthritis of left hip 07/06/2014 ??? 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 Arthritis ??? Back pain ??? Diabetes mellitus ([facility]) ??? Hypothyroidism ??? Wears glasses [...] Lower extremity:??RLE:??Status post transmetatarsal amputation. ??Plantar flap well??healed.?Dorsal debridement site with good granulation tissue, as below.??Filling in well.??No purulence. ??Nosurrounding erythema. ??No malodor or necrosis.??No pain on palpation.??No exposed bone. Able to flex the foot to 90 degrees at the ankle. Gross protective sensation diminished. ASSESSMENT: 1. Ulcerated, foot, right, with fat layer exposed ([facility]) GENERIC ORTHO VENDOR DME 2. Status post transmetatarsal amputation of foot, right ([facility]) GENERIC ORTHO VENDOR DME 3. Type 2 diabetes mellitus with diabetic polyneuropathy, with long-term current use of insulin ([facility]) GENERIC ORTHO VENDOR DME Other Orders Placed This Visit Procedures ??? Generic Ortho Vendor DME PLAN: Mr. Scott presents today for follow-up 9 weeks status post right transmetatarsal amputation with dorsal debridement and wound VAC application, date of surgery 10/09/2019. This continues to fill in verywell dorsally. No signs of infection. No pain today. He is going to continue to get daily dressing changes with wound gel to the wound, 4 x 4's, Kerlix, Cem bandage. Instructions were written not to a pply nonadherent gauze as this does not allow the wound to breathe. He is going to continue nonweightbearing for now. I did get him fitted for a surgical shoe today, for when we do transition him to weightbearing. I am going to discuss discharge disposition with [facility] as well as his , in terms of planning and timing of going home. I am going to see him back in 3 weeks. He knows to call before then if any problems arise and is happy with this plan. Portions of this document have been prepared with speech recognition software or keyboard data analyst etl developer techniques. Minor irregularities or keyboarding misprints may be present documented in this encounter Plan of Treatment Not on file documented as of this encounter Visit Diagnoses Diagnosis Ulcerated, foot, right, with fat layer exposed ([facility])- Primary Status post transmetatarsal amputation of foot, right ([facility]) Type 2 diabetes mellitus with diabetic polyneuropathy, with long-term current use of insulin ([facility]) documented in this encounter Orders Equipment Count Last Ordered Date First Orde red Date GENERIC ORTHO VENDOR DME 1 12/12/2019 documented in this encounter Care Teams Hand Model Relationship Specialty Start Date End Date Jason Batres MD [address] [place] [address] PCP - General 07/27/11 12/31/23 documented as of this encounter
--- OUTSIDE RECORDS SUMMARY | 2024-02-28 16:48 | XMS_ITS | Encounter Summary ---
Author Organization [facility] Address [address] [place] [address] Care Team Providers Care Highballer Name Role Phone Jason Batres MD Primary Care Provi margarita Reason for Visit * Reason Onset Date Comments Update 12/30/2019 Encounter Details Date Type Department Care Team (Late st Contact Info) Description 12/30/2019 Telephone [facility] Foot & Ankle Program - [address] [address] Angelina Gonzales DP [address] [place] [address] Update Social History Tobacco Use [...] Telephone Encounter - Angelina Gonzales DPM - 12/30/2019 1620 EDT Spoke with Nguyen last week regarding discharge plans for Jeff from [facility] rehab. We discussed her concerns and expectations when he leaves rehab. I have reached out to [facility] x 2. Left message with social work, Kait, today. Left callback number to discussplans for Jeff and review treatment plans for him as well. documented in this encounter Plan of Treatment Not on file documented as of this encounter Visit Diagnoses Not on filedocumented in this encounter Care Teams Highballer Relationship Specialty Start Date End Date Jason Batres MD [address] [place] [id number] PCP - General 07/27/11 12/31/23 documented as of this encounter
--- OUTSIDE RECORDS SUMMARY | 2024-02-28 16:49 | XMS_ITS | Encounter Summary ---
Author Organization [facility] Address [address] [place] [address] Care Team Providers Care Terrazzo Layer Helper Name Role Phone Jason Batres MD Primary Care Provi margarita Reason for Visit * Reason Comments Telemedicine Video Visit Encounter Details Date Type Department Care Team (Late st Contact Info) Description 10/28/2019 10:00 EDT Telemedicine [facility] Infectious Disease - [facility] [address] [place], [place] [id number] Glenys Desir, COMMERCIAL REAL ESTATE AGENT [address] [facility], [address] [place] [address] Acute osteomyelitis of phalanx of [...] Progress Notes * Glenys Desir APRN - 10/28/2019 1000 EDT INFECTIOUS DISEASES Follow Up Division of Infectious Disease Follow up/Progress Note 10/28/19 9:47 TELEMEDICINE VIDEO VISIT Today's visit was provided [...] weeks of daily treatment. PICC was placed. He currently resides at [facility]- doing well. Does admit to some pain while he ambulates rated 5/6 out 10. Is tolerating the Ertapenem. REVIEW OF SYSTEMS: 10-point review of systems is negative except as mentioned above ALLERGIES: No Known Allergies MEDICATIONS: Reviewed in MAY. PHYSICAL EXAM: VS: There were no vitals taken for this visit. GENL: pleasant, NAD PSYCH: non-anxious, normal affect ACCESS: pIV LABORATORY: Reviewed in detail in PRISM. WBC/RBC/HGB/HCT/PLT/ANC5.45/4.03/12.3/36.6/247/2.62 (10/26 0900) Estimated Creatinine Clearance: 185.6 mL/min (A) (by C-G formula based on SCr of 0.58 mg/dL (L)). MICROBIOLOGY DATA: Reviewed in detail in PRISM. Pertinent for: 10/26 Creatinine 0.58 WBC 5.45 C-reactive protein <7.0 Sed Rate 82 7/ blood culture: negative - 10/03 R foot [...] h/o poorly controlled t2DM, craniopharyngioma s/p resection [id number] w/ some memory and balance deficits, prior amputations of R 2nd toe (2016), who is currently admitted for R foot infection and ostemomyelitis. He is now s/p TMA on 10/08; Op note suggests no grossproximal extension of infection; however, the pathology shows acute osteomyelitis extending to the bone resection margin. Thus, 6 weeks of intravenous antibiotics is indicated. RECOMMENDATIONS: - Ertapenem 1g IV Q24H until 11/19/2019 - Weekly zoom visits - Weekly CBC/dif, BMP, ESR/CRP while on IV abx documented in this encounter Plan of Treatment Not on file documented as of this encounter Visit Diagnoses Diagnosis Acute osteomyelitis of phalanx of right foot ([facility])- Primary documented in this encounter Care Teams Terrazzo Layer Helper Relationship Specialty Start Date End Date Jason Batres MD [address] [place] [address] PCP - General 07/27/11 12/31/23 documented as of this encounter
--- OUTSIDE RECORDS SUMMARY | 2024-02-28 16:49 | XMS_ITS | Encounter Summary ---
Author Organization [facility] Address [address] [place] [address] Care Team Providers Care Banking Assistant Name Role Phone Jason Batres MD Primary Care Provi margarita Reason for Visit * Reason Onset Date Comments Home IV Antibiotics 11/04/2019 Encounter Details Date Type Department Care Team (Late st Contact Info) Description 11/04/2019 Telephone [facility] Infectious Disease - [address] [id number] Glenys Desir, MICHELET [address] [facility], [address] [place] [address] Home IV Antibiotics Social History Tobacco Use Types Packs/Day Years [...] encounter Miscellaneous Notes * Telephone Encounter - Arleen Cifuentes MA - 11/04/2019 0953 EDT Called [facility] and spoke with nurse, Nydia, about patient's weekly labs draws. Nydia states she does not know when labs were last drawn but confirms they were not done on 11/02. I let Nydiaknow that labs are overdue, we were hoping to have them done prior to patients appointment today and asked if she could draw them by today. Nydia states she will add it to her list of things to do.Re-faxed lab orders for CRP, Sed Rate, Creatinine, BUN, CBC w/D for the 3rd time to [phone]. By the end of our conversation Nydia mentions that patient will be discharging from their services on11/12/2019 and [facility] will be taking over. documented in this encounter Plan of Treatment Not on file documented as of this encounter Visit Diagnoses Not on filedocumented in this encounter Care Teams Banking Assistant Relationship Specialty Start Date End Date Jason Batres MD [address] [place] [id number] PCP - General 07/27/11 12/31/23 documented as of this encounter
--- OUTSIDE RECORDS SUMMARY | 2024-02-28 16:49 | XMS_ITS | Encounter Summary ---
Author Organization [facility] Address [address] [place] [address] Care Team Providers Care Raw Material Planner Name Role Phone Jason Batres MD Primary Care Provi margarita Alexus De La O RN Unavailable [facility] Internal Medicine, Primary Care Provi margarita Encounter Details Date Type Department Care Team (Late st Contact Info) Description 11/04/2019 Lab Requisition [facility] Pathology & Laboratory Medicine - [facility] [address] [place] [address] Edson Zepeda MD [address] [place] [address] [address] [place] [address] Other acute osteomyelitis, right ankle and foot ([facility]) Social History Tobacco Use Types [...] Date/Time Associated Diagnosis Comments SED RATE Today 11/04/2019 15:49 EDT Other acute osteomyelitis, right ankle and foot ([facility]) COMPLETE BLOOD COUNT AND DIFFERENTIAL Today 11/04/2019 15:49 EDT Other acute osteomyelitis, right ankle and foot ([facility]) C REACTIVE PROTEIN Today 11/04/2019 15 :49 EDT Other acute osteomyelitis, right ankle and foot ([facility]) BUN Today 11/04/2019 15:49 EDT Other acute osteomyelitis, right ankle and foot ([facility]) CREATININE Today 11/04/2019 15:49 EDT Other acute osteomyelitis, right ankle and foot ([facility]) documented in this encounter Results * (ABNORMAL) SED. RATE:LYNNEREN (11/04/2019 15:49 EDT) Pathologist [facility] Sed Rate 46(H) 0 - 20 mm/hr 11/04/2019 20:36 EDT [facility] Comment:Note: Sample greater than 4 hours old (but less than 12 hours) when tested. If refrigerated, sample is stable when tested within 12 hours of collection. Blood VENOUS BLOOD / Unknown Non-Lab Collect / Unknown 11/04/2019 15:49 EDT 11/04/2019 19:22 EDT us Edson Zepeda MD HEMATOLOGY & PF4 ORDERABL ES Final Result [facility] [address] [place] [address] * (ABNORMAL) COMPLETE BLOOD COUNT AND DIFFERENTIAL (11/04/2019 15:49 EDT) [facility] WBC 6.75 4.00 - 10.40 K/cmm 11/04/2019 19:51 [facility] RBC 3.74(L) 4.36 - 5.78 M/cmm 11/04/2019 19:51 [facility] Hemoglobin 11.8(L) 13.8 - 17.3 gm/dL 11/04/2019 19:51 [facility] HCT 33.6(L) 39.5 - 50.2 % 11/04/2019 19:51 [facility] MCV 90 81 - 95 fl 11/04/2019 19:51 [facility] MCH 31.6 27.6 - 33.0 pg 11/04/2019 19:51 [facility] MCHC 35.1 32.8 - 36.4 gm/dL 11/04/2019 19:51 [facility] RDW-CV 13.1 <14.2 % 11/04/2019 19:51 [facility] RDW-SD 42.8 <46.0 fl 11/04/2019 19:51 [facility] PLT 213 141 - 377 K/cmm 11/04/2019 19:51 [facility] MPV 11.4 9.5 - 12.7 fl 11/04/2019 19:51 [facility] % Neutrophils 57.0 % 11/04/2019 19:51 [facility] % Lymphocytes 32.0 % 11/04/2019 19:51 [facility] % Monocytes 7.9 % 11/04/2019 19:51 [facility] % Eosinophils 2.7 % 11/04/2019 19:51 [facility] % Basophils 0.1 % 11/04/2019 19:51 [facility] % Immature Grans 0.3 % 11/04/19 19:51 [facility] Absolute Neutrophils 3.85 2.20 - 8.85 K/cmm 11/04/2019 19:51 [facility] Absolute Lymphocytes 2.16 1.09 - 3.30 K/cmm 11/04/2019 19:51 [facility] Absolute Monocytes 0.53 0.10 - 0.80 K/cmm 11/04/2019 19:51 [facility] Absolute Eosinophils 0.18 0.03 - 0.61 K/cmm 11/04/2019 19:51 [facility] ABS Basophils 0.01 0.01 - 0.11 K/cmm 11/04/2019 19:51 [facility] Absolute Immature Grans 0.02 0.00 - 0.06 K/cmm 11/04/2019 19:51 [facility] Type of Differential: Auto 11/04/2019 19:51 [facility] Blood VENOUS BLOOD / Unknown Non-Lab Collect / Unknown 11/04/2019 15:49 EDT 11/04/2019 19:22 EDT Edson Zepeda MD PACKAGES & DNA PROBE ORDE ARGENTINALES Final Result [facility] [address] [place] [address] * (ABNORMAL) CREATININE (11/04/2019 15:49 EDT) Creatinine 0.56(L) 0.66 - 1.25 mg/dL 11/04/2019 19:55 EDT [facility] eGFR 115 >60 mL/min/1.7 3m2 11/04/2019 19:55 EDT [facility] Comment:eGFR calculated sarahi krishnan CKD-EPI equation for non- Americans. Multiply eGFR by 1.16 for patients. Blood VENOUS BLOOD / Unknown Non-Lab Collect / Unknown 11/04/2019 15:49 EDT 11/04/2019 19:22 EDT Edson Zepeda MD CHEMISTRY & BLOOD GAS ORD ERABLES Final Result Performing Organization Address City/[facility]/ZIP Co de Phone Number [facility] [address] [place] [address] * BUN (11/04/2019 15:49 EDT) Pathologist [facility] BUN 18 10 - 26 mg/dL 11/04/2019 19:55 EDT [facility] Blood VENOUS BLOOD / Unknown Non-Lab Collect / Unknown 11/04/2019 15:49 EDT 11/04/2019 19:22 EDT Edson Zepeda MD CHEMISTRY & BLOOD GAS ORD ERABLES Final Result [facility] [address] [place] [address] * C REACTIVE PROTEIN (11/04/2019 15:49 EDT) C-Reactive Protein <7.0 <10.0 mg/L 11/04/2019 19:55 EDT [facility] Blood VENOUS BLOOD / Unknown Non-Lab Collect / Unknown 11/04/2019 15:49 EDT 11/04/2019 19:22 EDT us Edson Zepeda MD CHEMISTRY & BLOOD GAS ORD ERABLES Final Result [facility] [address] [place] [address] documented in this encounter Visit Diagnoses Diagnosis Other acute osteomyelitis, right ankle and foot ([facility]) documented in this encounter Additional Health Concerns Infection Onset Date Last Indicated Resolved Time R/O COVID-19 Comment:Negative swab 12/22/2020 12/22/2020 12/22/2020 021 7:17 EDT R/O COVID-19 Comment:Negative 02/17/2022 02/17/2022 02/18/2022 7:30 EST Rule-Out C. difficile 02/25/2022 02/25/20222021 12:00 EST R/O COVID-19 04/09/2022 04/09/2022 04/09/2022 16:3 2 EST documented as of this encounter Care Teams Raw Material Planner Relationship Specialty Start Date End Date Jason Batres MD [address] [place] [address] PCP - General 07/27/11 12/31/23 [facility] Internal Medicine, [facility] [address] [place] [address] PCP - General 01/01/24 Alexus De La O, security sergeant 04/18/22 08/13/23 documented as of this encounter
--- OUTSIDE RECORDS SUMMARY | 2024-02-28 16:49 | XMS_ITS | Encounter Summary ---
Author Organization [facility] Address [address] [place] [address] Care Team Providers Care Combat Engineer Name Role Phone Jason Batres MD Primary Care Provi margarita Alexus De La O RN [facility] Internal Medicine, Primary Care Provi margarita Encounter Details Date Type Department Care Team (Late st Contact Info) Description 10/21/2019 Lab Requisition [facility] Pathology & Laboratory Medicine - [facility] [address] [place] [address] Edson Zepeda MD [address] [place] [address] [place] [phone] Encounter for other general examination Social [...] Priority Date/Time Associated Diagnosis Comments HOLD SST Today 10/21/2019 9:45 EDT Encounter for other general examination HOLD SST Today 10/21/2019 9:45 EDT Encounter for other general examination SED RATE Today 10/21/2019 9:45 EDT Encounter for other general examination COMPLETE BLOOD COUNT AND DIFFERENTIAL Today 10/21/2019 9:45 EDT Encounter for other general examination C REACTIVE PROTEIN Today 10/21/2019 9: 45 EDT Encounter for other general examination BUN Today 10/21/2019 9:45 EDT Encounter for other general examination CREATININE Today 10/21/2019 9:45 EDT Encounter for other general examination documented in this encounter Results * HOLD SST (10/21/2019 9:45 EDT) Hold Hold 10/21/2019 13:30 EDT [facility] Blood VENOUS BLOOD / Unknown Non-Lab Collect / Unknown 10/21/2019 9:45 EDT 10/21/2019 12:23 EDT us Edson Zepeda MD LAB INFO SERVICE AND SUPP ORT & PHONE RESULT Final Result Performing Organization Address [facility]/ZIP Co de Phone Number [facility] [address] [place] [phone] * HOLD SST (10/21/2019 9:45 EDT) Hold Hold 10/21/2019 13:30 EDT [facility] Blood VENOUS BLOOD / Unknown Non-Lab Collect / Unknown 10/21/2019 9:45 EDT 10/21/2019 12:23 EDT us Edson Zepeda MD LAB INFO SERVICE AND SUPP ORT & PHONE RESULT Final Result Performing Organization Address City/[facility]/ZIP Co de Phone Number [facility] [address] [place] [address] * (ABNORMAL) SED. RATE:WESTERGREN (10/21/2019 9:45 EDT) Sed Rate 94(H) 0 - 20 mm/hr 10/21/2019 12:44 EDT [facility] Blood VENOUS BLOOD / Unknown Non-Lab Collect / Unknown 10/21/2019 9:45 EDT 10/21/2019 12:23 EDT us Edson Zepeda MD HEMATOLOGY & PF4 ORDERABL ES Final Result [facility] [address] [place] [address] * (ABNORMAL) COMPLETE BLOOD COUNT AND DIFFERENTIAL (10/21/2019 9:45 EDT) WBC 5.04 4.00 - 10.40 K/cmm 10/21/2019 12:44 EDT [facility] RBC 3.91(L) 4.36 - 5.78 M/cmm 10/21/2019 12:44 T [facility] Hemoglobin 11.7(L) 13.8 - 17.3 gm/dL 10/21/2019 12:44 T [facility] HCT 36.2(L) 39.5 - 50.2 % 10/21/2019 12:44 EDT [facility] MCV 93 81 - 95 fl 10/21/2019 12:44 EDT [facility] MCH 29.9 27.6 - 33.0 pg 10/21/2019 12:44 EDT [facility] MCHC 32.3(L) 32.8 - 36.4 gm/dL 10/21/2019 12:44 T [facility] RDW-CV 13.2 <14.2 % 10/21/2019 12:44 [facility] RDW-SD 44.4 <46.0 fl 10/21/2019 12:44 EDT [facility] PLT 283 141 - 377 K/cmm 10/21/2019 12:44 EDT [facility] MPV 10.0 9.5 - 12.7 fl 10/21/2019 12:44 [facility] % Neutrophils 53.6 % 10/21/2019 12:44 EDT [facility] % Lymphocytes 35.5 % [facility]2019 [facility] % Monocytes 6.7 % 10/[facility]2019 [facility] % Eosinophils 3.4 % 10/21/2019 12:44 EDT [facility] % Basophils 0.6 % 10/21/2019 12:44 [facility] % Immature Grans 0.2 % 10/21/19 20 12:44 EDT [facility] Absolute Neutrophils 2.70 2.20 - 8.85 K/cmm 10/21/2019 12:44 EDT [facility] Absolute Lymphocytes 1.79 1.09 - 3.30 K/cmm 10/21/2019 12:44 T [facility] Absolute Monocytes 0.34 0.10 - 0.80 K/cmm 10/21/2019 12:44 EDT [facility] Absolute Eosinophils 0.17 0.03 - 0.61 K/cmm 10/21/2019 12:44 EDT [facility] ABS Basophils 0.03 0.01 - 0.11 K/cmm 10/21/2019 12:44 T [facility] Absolute Immature Grans 0.01 0.00 - 0.06 K/cmm 10/21/2019 12:44 T [facility] Type of Differential: Auto 10/21/2019 12:44 T [facility] Blood VENOUS BLOOD / Unknown Non-Lab Collect / Unknown 10/21/2019 9:45 EDT 10/21/2019 12:23 EDT Edson Zepeda MD PACKAGES & DNA PROBE INO ROMERO Final Result [facility] [address] [place] [address] * (ABNORMAL) CREATININE (10/21/2019 9:45 EDT) Creatinine 0.53(L) 0.66 - 1.25 mg/dL 10/21/2019 12:49 EDT [facility] eGFR 117 >60 mL/min/1.7 3m2 10/21/2019 12:49 EDT [facility] Comment:eGFR calculated sarahi krishnan CKD-EPI equation for non- Americans. Multiply eGFR by 1.16 for patients. Blood VENOUS BLOOD / Unknown Non-Lab Collect / Unknown 10/21/2019 9:45 EDT 10/21/2019 12:23 EDT Edson Zepeda MD CHEMISTRY & BLOOD GAS ORD ERABLES Final Result Performing Organization Address City/[facility]/ZIP Co de Phone Number [facility] [address] [place] [address] * BUN (10/21/2019 9:45 EDT) BUN 13 10 - 26 mg/dL 10/21/2019 12:49 EDT [facility] Blood VENOUS BLOOD / Unknown Non-Lab Collect / Unknown 10/21/2019 9:45 EDT 10/21/2019 12:23 EDT Edson Zepeda MD CHEMISTRY & BLOOD GAS ORD ERABLES Final Result Performing Organization Address [facility] Co de Phone Number [facility] [address] [place] [address] * C REACTIVE PROTEIN (10/21/2019 9:45 EDT) C-Reactive Protein <7.0 <10.0 mg/L 10/21/2019 12:49 EDT [facility] Blood VENOUS BLOOD / Unknown Non-Lab Collect / Unknown 10/21/2019 9:45 EDT 10/21/2019 12:23 EDT Edson Zepeda MD CHEMISTRY & BLOOD GAS ORD ERABLES Final Result Performing Organization Address [facility]/ZIP Co de Phone Number [facility] [address] [place] [phone] documented in this encounter Visit Diagnoses Diagnosis [...] documented as of this encounter Care Teams Combat Engineer Relationship Specialty Start Date End Date Jason Batres MD [address] [place] [address] PCP - General 07/27/11 12/31/23 [facility] Internal Medicine, Mp [address] [place] [address] PCP - General 01/01/24 Alexus De La O, software maintenance engineer 04/18/22 08/13/23 documented as of this encounter
--- OUTSIDE RECORDS SUMMARY | 2024-02-28 16:49 | XMS_ITS | Encounter Summary ---
Author Organization [facility] Address [address] [place] [address] Care Team Providers Care Health And Wellness Sales Consultant Name Role Phone Jason Batres MD Primary Care Provi margarita Alexus De La O RN Unavailable [facility] Internal Medicine, Primary Care Provi margarita Encounter Details Date Type Department Care Team (Late st Contact Info) Description 11/10/2019 Lab Requisition [facility] Pathology & Laboratory Medicine - [facility] [address] [place] [address] Edson Zepeda MD [address] [place] [address] [address] [place] [address] Other acute osteomyelitis, right ankle and foot (HCC-CMS); Encounter for other general examination Social History [...] Date/Time Associated Diagnosis Comments SED RATE Today 11/10/2019 10:27 EDT Other acute osteomyelitis, right ankle and foot ([facility]) Encounter for other general examination COMPLETE BLOOD COUNT AND DIFFERENTIAL Today 11/10/2019 10:27 EDT Other acute osteomyelitis, right ankle and foot ([facility]) Encounter for other general examination C REACTIVE PROTEIN Today 11/10/2019 10 :27 EDT Other acute osteomyelitis, right ankle and foot ([facility]) Encounter for other general examination BUN Today 11/10/2019 10:27 EDT Other acute osteomyelitis, right ankle and foot ([facility]) Encounter for other general examination CREATININE Today 11/10/2019 10:27 EDT Other acute osteomyelitis, right ankle and foot ([facility]) Encounter for other general examination documented in this encounter Results * (ABNORMAL) SED. RATE:WESTERGREN (11/10/2019 10:27 EDT) Pathologist [facility] Sed Rate 42(H) 0 - 20 mm/hr 11/10/2019 13:49 EDT [facility] Blood VENOUS BLOOD / Unknown Non-Lab Collect / Unknown 11/10/2019 10:27 EDT 11/10/2019 13:07 EDT us Edson Zepeda MD HEMATOLOGY & PF4 ORDERABL ES Final Result Performing Organization Address City/[facility]/ZIP Co de Phone Number [facility] [address] [place] [address] * C REACTIVE PROTEIN (11/10/2019 10:27 EDT) [facility] C-Reactive Protein <7.0 <10.0 mg/L 11/10/2019 13:27 EDT [facility] Blood VENOUS BLOOD / Unknown Non-Lab Collect / Unknown 11/10/2019 10:27 EDT 11/10/2019 13:07 EDT us Edson Zepeda MD CHEMISTRY & BLOOD GAS ORD ERABLES Final Result [facility] [address] [place] [address] * (ABNORMAL) COMPLETE BLOOD COUNT AND DIFFERENTIAL (11/10/2019 10:27 EDT) Pathologist [facility] WBC 5.53 4.00 - 10.40 K/cmm 11/10/2019 13:19 EDT [facility] RBC 3.78(L) 4.36 - 5.78 M/cmm 11/10/2019 13:19 [facility] Hemoglobin 11.8(L) 13.8 - 17.3 gm/dL 11/10/2019 13:19 [facility] HCT 34.5(L) 39.5 - 50.2 % 11/10/2019 13:19 [facility] MCV 91 81 - 95 fl 11/10/2019 13:19 [facility] MCH 31.2 27.6 - 33.0 pg 11/10/2019 13:19 [facility] MCHC 34.2 32.8 - 36.4 gm/dL 11/10/2019 13:19 [facility] RDW-CV 13.2 <14.2 % 11/10/2019 13:19 [facility] RDW-SD 44.1 <46.0 fl 11/10/2019 13:19 [facility] PLT 175 141 - 377 K/cmm 11/10/2019 13:19 [facility] MPV 11.2 9.5 - 12.7 fl 11/10/2019 13:19 [facility] % Neutrophils 62.2 % 11/10/2019 13:19 [facility] % Lymphocytes 26.9 % 11/10/2019 13:19 [facility] % Monocytes 6.5 % 11/10/2019 13:19 [facility] % Eosinophils 4.0 % 11/10/2019 13:19 [facility] % Basophils 0.2 % 11/10/2019 13:19 [facility] % Immature Grans 0.2 % 11/10/19 20 13:19 [facility] Absolute Neutrophils 3.44 2.20 - 8.85 K/cmm 11/10/2019 13:19 [facility] Absolute Lymphocytes 1.49 1.09 - 3.30 K/cmm 11/10/2019 13:19 [facility] Absolute Monocytes 0.36 0.10 - 0.80 K/cmm 11/10/2019 13:19 [facility] Absolute Eosinophils 0.22 0.03 - 0.61 K/cmm 11/10/2019 13:19 EDT [facility] ABS Basophils 0.01 0.01 - 0.11 K/cmm 11/10/2019 13:19 EDT [facility] Absolute Immature Grans 0.01 0.00 - 0.06 K/cmm 11/10/2019 13:19 EDT [facility] Type of Differential: Auto 11/10/2019 13:19 EDT [facility] Blood VENOUS BLOOD / Unknown Non-Lab Collect / Unknown 11/10/2019 10:27 EDT 11/10/2019 13:07 EDT Edson Zepeda MD PACKAGES & DNA PROBE ORDE RABLES Final Result Performing Organization Address [facility] Co de Phone Number [facility] [address] [place] [address] * (ABNORMAL) CREATININE (11/10/2019 10:27 EDT) Creatinine 0.59(L) 0.66 - 1.25 mg/dL 11/10/2019 13:27 EDT [facility] eGFR 112 >60 mL/min/1.7 3m2 11/10/2019 13:27 EDT [facility] Comment:eGFR calculated saraih krishnan CKD-EPI equation for non- Americans. Multiply eGFR by 1.16 for patients. Blood VENOUS BLOOD / Unknown Non-Lab Collect / Unknown 11/10/2019 10:27 EDT 11/10/2019 13:07 EDT us Edson Zepeda MD CHEMISTRY & BLOOD GAS ORD ERABLES Final Result Performing Organization Address [facility]/ZIP Co de Phone Number [facility] [address] [place] [address] * BUN (11/10/2019 10:27 EDT) BUN 18 10 - 26 mg/dL 11/10/2019 13:27 EDT [facility] Blood VENOUS BLOOD / Unknown Non-Lab Collect / Unknown 11/10/2019 10:27 EDT 11/10/2019 13:07 EDT Edson Zepeda MD CHEMISTRY & BLOOD GAS ORD ERABLES Final Result [facility] [address] [place] [address] documented in this encounter Visit Diagnoses Diagnosis Other acute osteomyelitis, right ankle and foot ([facility]) Encounter for other general examination documented in this encounter Additional Health Concerns Infection Onset Date Last Indicated Resolved Time R/O COVID-19 Comment:Negative swab 12/22/2020 12/22/2020 12/22/2020 021 7:17 EDT R/O COVID-19 Comment:Negative 02/17/2022 02/17/2022 02/18/2022 7:30 EST Rule-Out C. difficile 02/25/2022 02/25/20222021 12:00 EST R/O COVID-19 04/09/2022 04/09/2022 04/09/2022 16:3 2 EST documented as of this encounter Care Teams Health And Wellness Sales Consultant Relationship Specialty Start Date End Date Jason Batres MD [address] [place] [address] PCP - General 07/27/11 12/31/23 [facility] Internal Medicine, [facility] [address] [place] [address] PCP - General 01/01/24 Alexus De La O, external relations director 04/18/22 08/13/23 documented as of this encounter
--- OUTSIDE RECORDS SUMMARY | 2024-02-28 16:49 | XMS_ITS | Encounter Summary ---
Author Organization [facility] Address [address] [place] [address] Care Team Providers Care Casting House Laborer Name Role Phone Jason Batres MD Primary Care Provi margarita Reason for Visit * Reason Comments Telemedicine Video Visit Encounter Details Date Type Department Care Team (Late st Contact Info) Description 10/21/2019 10:30 EDT Telemedicine [facility] Infectious Disease - [facility] [address] [place], [place] [id number] Glenys Desir, MATERIAL HANDLER FLOORPERSON [address] [facility], [address] [place] [address] Acute osteomyelitis of right ankle or foot (HCC-CMS) (Primary Dx) Social History Tobacco [...] have Coronavirus / COVID-19? No / Unsure 10/03/2019 19:54 EDT documented as of this encounter Functional [...] Progress Notes * Glenys Desir APRN - 10/21/2019 1030 EDT INFECTIOUS DISEASES Follow Up Division of Infectious Disease Follow up/Progress Note 10/21/19 12:00 TELEMEDICINE VIDEO VISIT Today's visit was provided [...] PICC was placed. He currently resides at [facility]- doing well. Does admit to some pain while he ambulates. Is tolerating the Ertapenem. REVIEW OF SYSTEMS: 10-point review of systems is negative except as mentioned above ALLERGIES: No Known Allergies MEDICATIONS: Reviewed in MAY. Pertinent for Current Outpatient Medications Medication ??? acetaminophen (TYLENOL) 500 mg tablet ??? atorvastatin (LIPITOR) 20 mg tablet ??? blood glucose (FREESTYLE TEST) test strips ??? blood glucose meter (FREESTYLE FREEDOM LITE) ??? cholecalciferol, Vitamin D3, 1,000 unit tablet ??? diphenhydrAMINE (BENADRYL) 50 mg capsule ??? ertapenem 1,000 mg in sodium chloride 0.9 % 50 mL ??? FREESTYLE FREEDOM LITE ??? ibuprofen (MOTRIN) 200 mg tablet ??? insulin aspart U-100 (NOVOLOG FLEXPEN) 100 unit/mL (3 mL) injectable pen ??? insulin glargine (LANTUS SOLOSTAR) 100 unit/mL (3 mL) injection pen ??? IV Infusion Pump Accessory infusion set ??? lancets ??? levothyroxine (SYNTHROID) 112 mcg tablet ??? methocarbamoL (ROBAXIN) 750 mg tablet ??? oxyCODONE (ROXICODONE) 5 mg immediate release tablet ??? sodium chloride 0.9 %, flush, flush syringe ??? traMADoL (ULTRAM) 50 mg tablet No current facility-administered medications for this visit. PHYSICAL EXAM: VS: There were no vitals taken for this visit. GENL: pleasant, NAD PSYCH: non-anxious, normal affect ACCESS: pIV LABORATORY: Reviewed in detail in PRISM. CrCl cannot be calculated (Patient's most recent lab result is older than the maximum 7 days allowed.). MICROBIOLOGY DATA: Reviewed in detail in PRISM. 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
--- OUTSIDE RECORDS SUMMARY | 2024-02-28 16:49 | XMS_ITS | Encounter Summary ---
Author Organization [facility] Address [address] [place] [address] Care Team Providers Care Calciner Operator Name Role Phone Jason Batres MD Primary Care Provi margarita Reason for Visit * Reason Comments Foot Problem Encounter Details Date Type Department Care Team (Latest Contact Info) Description 10/31/2019 13:30 EDT Office Visit [facility] Foot & Ankle Program - [address] [address] Angelina Gonzales [facility] [address] [place] [address] Status post transmetatarsal amputation of right foot ([facility]) (Primary Dx); Type 2 diabetes mellitus with diabetic polyneuropathy, with long-term current use of insulin ([facility]) Social History Tobacco Use Types [...] Progress Notes * Angelina Gonzales DPM - 10/31/2019 1330 EDT Images from the original note were not included. HPI: Jeff Scott is a 58 y.o. male patient who presents for follow up 3 weeks status post left transmetatarsal amputation, with dorsal debridement and wound VAC application. He presents today from [facility]. He reports that he is doing well there. They have been changing the wound VAC 3 times a week. He has been staying off of the foot. He has been working with physical therapy. Heis doing well with the antibiotics. He is due to finish these 11/03 6. He denies any pain in the foot. He denies any nausea, vomiting, fever, chills. Review of Systems A ten point review of systems was performed. Pertinent positives are listed below, all others are negative. Vital signs: vitals were not taken for this visit. PHYSICAL EXAM: General: AO x 3, NAD Lower extremity: RLE: Status post transmetatarsal amputation. Plantar flap well coapted, as pictured below. Proximal area plantar flap filled in. No purulence expressed. No pain on probing. No surrounding erythema or edema. Dorsal debridement site with good granulation tissue, as below. No purulence. No surrounding erythema. No malodor or necrosis. No pain on probing. Right foot after suture removal: ASSESSMENT: 1. Status post transmetatarsal amputation of right foot ([facility]) 2. Type 2 diabetes mellitus with diabetic polyneuropathy, with long-term current use of insulin ([facility]) No orders of the defined types were placed in this encounter. PLAN: Mr. Scott presents today for follow-up 3 weeks status post right foot transmetatarsal amputation with dorsal debridement and wound VAC application. This is doing very well. Plantar flap has healed. Sutures were removed today. The dorsal wound is filling in nicely with no acute signs of infection. He is no longer having pain in the foot. A wet-to-dry dressing was placed. Instructions were written from [facility] to reapply the wound VAC. They are going to continue with the woundVAC 3 times a week. He is going to continue strict nonweightbearing due to the continued large defect dorsally. Continue elevation. Continue antibiotics per infectious disease recommendations. I am go ing to see him back in approximately 2 weeks. Instructions were written to call before then if any problems arise. Portions of this document have been prepared with speech recognition software or keyboard data security administrator techniques. Minor irregularities or keyboarding misprints may be present documented in this encounter Plan of Treatment Not on file documented as of this encounter Visit Diagnoses Diagnosis Status post transmetatarsal amputation of right foot ([facility])- Primary Type 2 diabetes mellitus with diabetic polyneuropathy, with long-term current use of insulin ([facility]) documented in this encounter Care Teams Calciner Operator Relationship Specialty Start Date End Date Jason Batres MD [address] [place] [address] PCP - General 07/27/11 12/31/23 documented as of this encounter
--- OUTSIDE RECORDS SUMMARY | 2024-02-28 16:49 | XMS_ITS | Encounter Summary ---
Author Organization [facility] Address [address] [place] [address] Care Team Providers Care Chart Writer Name Role Phone Jason Batres MD Primary Care Provi margarita Reason for Visit * Reason Comments Telemedicine Video Visit Encounter Details Date Type Department Care Team (Late st Contact Info) Description 11/04/2019 10:30 EDT Telemedicine [facility] Infectious Disease - [facility] [address] [place], [place] [id number] Glenys Desir, MICHELET [address] [facility], [address] [place] [address] Type 2 diabetes mellitus with diabetic polyneuropathy, with long-term current use of insulin ([facility]) (Primary Dx) Social History Tobacco Use Types [...] Progress Notes * Glenys Desir APRN - 11/04/2019 1030 EDT INFECTIOUS DISEASES Follow Up Division of Infectious Disease Follow up/Progress Note 11/04/19 10:33 TELEMEDICINE VIDEO VISIT Today's visit was provided [...] PICC was placed. Continues to reside at [facility]. Recently saw. Dr Gonzales- plantar flap has healed, dorsal wound is filling in nicely with no signs ofinfection. No longer having pain in foot. Wound Vac is going to be continued with continued strict nonweightbearing. 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 Wound is healing nicely. Labs were not drawn for this visit- [facility] has been called and requested these labs be drawn today- they will scan results. RECOMMENDATIONS: - Ertapenem 1g IV Q24H until 11/19/2019 - Weekly zoom visits - Weekly CBC/dif, BMP, ESR/CRP while on IV abx documented in this encounter Plan of Treatment Not on file documented as of this encounter Visit Diagnoses Diagnosis Type 2 diabetes mellitus with diabetic polyneuropathy, with long-term current use of insulin ([facility])- Primary documented in this encounter Care Teams Chart Writer Relationship Specialty Start Date End Date Jason Batres MD [address] [place] [address] PCP - General 07/27/11 12/31/23 documented as of this encounter
--- OUTSIDE RECORDS SUMMARY | 2024-02-28 16:49 | XMS_ITS | Encounter Summary ---
Author Organization [facility] Address [address] [place] [address] Care Team Providers Care Distance Education Director Name Role Phone Jason Batres MD Primary Care Provi margarita Encounter Details Date Type Department Care Team (Latest Contact Info) Description 10/24/2019 Travel Social History Tobacco Use Types Packs/Day [...] on filedocumented in this encounter Care Teams Distance Education Director Relationship Specialty Start Date End Date Jason Batres MD [address] [place] [address] PCP - General 07/27/11 12/31/23 documented as of this encounter
--- OUTSIDE RECORDS SUMMARY | 2024-02-28 16:49 | XMS_ITS | Encounter Summary ---
Author Organization [facility] Address [address] [place] [address] Care Team Providers Care Color Technician Name Role Phone Jason Batres MD Primary Care Provi margarita Reason for Visit * Reason Onset Date Comments Home IV Antibiotics 10/21/2019 Encounter Details Date Type Department Care Team (Late st Contact Info) Description 10/21/2019 Telephone [facility] Infectious Disease - [address] [id number] Glenys Desir, MICHELET [address] [facility], [address] [place] [address] Home IV Antibiotics Social History [...] Telephone Encounter - Arleen Cifuentes MA - 10/21/2019 0928 EDT Called [facility] on 10/19 to request lab draw prior to appointment today. Today spoke with nurse from [facility] to follow up on patients last lab draw and labs.Waiting for nurse to call back. documented in this encounter Plan of Treatment Not on file documented as of this encounter Visit Diagnoses Not on filedocumented in this encounter Care Teams Color Technician Relationship Specialty Start Date End Date Jason Batres MD [address] [place] [address] PCP - General 07/27/11 12/31/23 documented as of this encounter
--- OUTSIDE RECORDS SUMMARY | 2024-02-28 16:49 | XMS_ITS | Encounter Summary ---
Author Organization [facility] Address [address] [place] [address] Care Team Providers Care Anesthesiologist And Critical Care Name Role Phone Jason Batres MD Primary Care Provi margarita Reason for Visit * Reason Onset Date Comments Home IV Antibiotics 10/16/2019 Encounter Details Date Type Department Care Team (Late st Contact Info) Description 10/16/2019 Telephone [facility] Infectious Disease - [address] [phone] Glenys Desir, MICHELET [address] [facility], [address] [place] [address] Home IV Antibiotics Social History [...] encounter Miscellaneous Notes * Telephone Encounter - Sandi Morris RN - 10/16/[address] Murcia's last note, Picc insertion info, discharge orders, dates for telezoom visits, and all weekly lab orders faxed to [facility] [phone] ATTN: Antonia. * Telephone Encounter - Arleen Cifuentes MA - 10/16/2019 1211 EDT Called [facility], spoke to nurse Antonia to confirm orders for IV antibiotics PICC dressing change and lab draws. Antonia needs the orders to be re-faxed to [phone] ATTN: Antonia. I asked that they draw labs prior to appointment on 10/21/2019 and Antonia confirmed. documented in this encounter Plan of Treatment Not on file documented as of this encounter Visit Diagnoses Not on filedocumented in this encounter Care Teams Anesthesiologist And Critical Care Relationship Specialty Start Date End Date Jason Batres MD [address] [place] [phone] PCP - General 07/27/11 12/31/23 documented as of this encounter
--- OUTSIDE RECORDS SUMMARY | 2024-02-28 16:49 | XMS_ITS | Encounter Summary ---
Author Organization [facility] Address [address] [place] [address] Care Team Providers Care Retail Grocer Name Role Phone Jason Batres MD Primary Care Provi margarita Encounter Details Date Type Department Care Team (Latest Contact Info) Description 10/28/2019 Travel Social History Tobacco Use Types Packs/Day [...] filedocumented in this encounter Care Teams Retail Grocer Relationship Specialty Start Date End Date Jason Batres MD [address] [place] [address] PCP - General 07/27/11 12/31/23 documented as of this encounter
--- OUTSIDE RECORDS SUMMARY | 2024-02-28 16:49 | XMS_ITS | Encounter Summary ---
Author Organization [facility] Address [address] [place] [address] Care Team Providers Care Natural Resources Engineer Name Role Phone Jason Batres MD Primary Care Provi margarita Alexus De La O RN [facility] Internal Medicine, Primary Care Provi margarita Encounter Details Date Type Department Care Team (Late st Contact Info) Description 10/27/2019 Lab Requisition [facility] Pathology & Laboratory Medicine - [facility] [address] [place] [address] Edson Zepeda MD [address] [place] [address] [place] [phone] Encounter for other general examination Social [...] Date/Time Associated Diagnosis Comments HOLD SST Today 10/27/2019 9:00 EDT Encounter for other general examination HOLD SST Today 10/27/2019 9:00 EDT Encounter for other general examination SED RATE Today 10/27/2019 9:00 EDT Encounter for other general examination COMPLETE BLOOD COUNT AND DIFFERENTIAL Today 10/27/2019 9:00 EDT Encounter for other general examination C REACTIVE PROTEIN Today 10/27/2019 9: 00 EDT Encounter for other general examination BUN Today 10/27/2019 9:00 EDT Encounter for other general examination CREATININE Today 10/27/2019 9:00 EDT Encounter for other general examination documented in this encounter Results * HOLD SST (10/27/2019 9:00 EDT) Hold Hold 10/27/2019 15:15 EDT [facility] Blood VENOUS BLOOD / Unknown Non-Lab Collect / Unknown 10/27/2019 9:00 EDT 10/27/2019 14:07 EDT us Edson Zepeda MD LAB INFO SERVICE AND SUPP ORT & PHONE RESULT Final Result Performing Organization Address City/[facility]/ZIP Co de Phone Number [facility] [address] [place] [address] * HOLD SST (10/27/2019 9:00 EDT) Hold Hold 10/27/2019 15:15 EDT [facility] Blood VENOUS BLOOD / Unknown Non-Lab Collect / Unknown 10/27/2019 9:00 EDT 10/27/2019 14:07 EDT Edson Zepeda MD LAB INFO SERVICE AND SUPP ORT & PHONE RESULT Final Result Performing Organization Address City/[facility]/ZIP Co de Phone Number [facility] [address] [place] [address] * (ABNORMAL) SED. RATE:SILVIAERGREN (10/27/2019 9:00 EDT) Sed Rate 82(H) 0 - 20 mm/hr 10/27/2019 15:01 EDT [facility] Comment:Note: Sample greater than 4 hours old (but less than 12 hours) when tested. If refrigerated, sample is stable when tested within 12 hours of collection. Blood VENOUS BLOOD / Unknown Non-Lab Collect / Unknown 10/27/2019 9:00 EDT 10/27/2019 14:07 EDT us Edson Zepeda MD HEMATOLOGY & PF4 ORDERABL ES Final Result [facility] [address] [place] [address] * (ABNORMAL) COMPLETE BLOOD COUNT AND DIFFERENTIAL (10/27/2019 9:00 EDT) WBC 5.45 4.00 - 10.40 K/cmm 10/27/2019 14:46 T [facility] RBC 4.03(L) 4.36 - 5.78 M/cmm 10/27/2019 14:46 [facility] Hemoglobin 12.3(L) 13.8 - 17.3 gm/dL 10/27/2019 14:46 [facility] HCT 36.6(L) 39.5 - 50.2 % 10/27/2019 14:46 [facility] MCV 91 81 - 95 fl 10/27/2019 14:46 [facility] MCH 30.5 27.6 - 33.0 pg 10/27/2019 14:46 [facility] MCHC 33.6 32.8 - 36.4 gm/dL 10/27/2019 14:46 [facility] RDW-CV 13.1 <14.2 % 10/27/2019 14:46 [facility] RDW-SD 43.3 <46.0 fl 10/27/2019 14:46 [facility] PLT 247 141 - 377 K/cmm 10/27/2019 14:46 [facility] MPV 10.7 9.5 - 12.7 fl 10/27/2019 14:46 [facility] % Neutrophils 48.1 % 10/27/2019 14:46 [facility] % Lymphocytes 39.4 % 10/27/2019 14:46 [facility] % Monocytes 6.6 % 10/27/2019 14:46 [facility] % Eosinophils 5.3 % 10/27/2019 14:46 [facility] % Basophils 0.4 % 10/27/2019 14:46 [facility] % Immature Grans 0.2 % 10/27/19 20 14:46 [facility] Absolute Neutrophils 2.62 2.20 - 8.85 K/cmm 10/27/2019 14:46 [facility] Absolute Lymphocytes 2.15 1.09 - 3.30 K/cmm 10/27/2019 14:46 [facility] Absolute Monocytes 0.36 0.10 - 0.80 K/cmm 10/27/2019 14:46 [facility] Absolute Eosinophils 0.29 0.03 - 0.61 K/cmm 10/27/2019 14:46 [facility] ABS Basophils 0.02 0.01 - 0.11 K/cmm 10/27/2019 14:46 [facility] Absolute Immature Grans 0.01 0.00 - 0.06 K/cmm 10/27/2019 14:46 [facility] Type of Differential: Auto 10/27/2019 14:46 [facility] Blood VENOUS BLOOD / Unknown Non-Lab Collect / Unknown 10/27/2019 9:00 EDT 10/27/2019 14:07 EDT Edson Zepeda MD PACKAGES & DNA PROBE INO ROMERO Final Result [facility] [address] [place] [address] * (ABNORMAL) CREATININE (10/27/2019 9:00 EDT) Creatinine 0.58(L) 0.66 - 1.25 mg/dL 10/27/2019 14:48 [facility] eGFR 113 >60 mL/min/1.7 3m2 10/27/2019 14:48 [facility] Comment:eGFR calculated sarahi g CKD-EPI equation for non- Americans. Multiply eGFR by 1.16 for patients. Blood VENOUS BLOOD / Unknown Non-Lab Collect / Unknown 10/27/2019 9:00 EDT 10/27/2019 14:07 EDT Edson Zepeda MD CHEMISTRY & BLOOD GAS ORD ERABLES Final Result Performing Organization Address [facility]/ZIP Co de Phone Number [facility] [address] [place] [address] * BUN (10/27/2019 9:00 EDT) BUN 18 10 - 26 mg/dL 10/27/2019 14:48 EDT [facility] Blood VENOUS BLOOD / Unknown Non-Lab Collect / Unknown 10/27/2019 9:00 EDT 10/27/2019 14:07 EDT Edson Zepeda MD CHEMISTRY & BLOOD GAS ORD ERABLES Final Result Performing Organization Address [facility] Co de Phone Number [facility] [address] [place] [address] * C REACTIVE PROTEIN (10/27/2019 9:00 EDT) C-Reactive Protein <7.0 <10.0 mg/L 10/27/2019 14:48 EDT [facility] Blood VENOUS BLOOD / Unknown Non-Lab Collect / Unknown 10/27/2019 9:00 EDT 10/27/2019 14:07 EDT Edson Zepeda MD CHEMISTRY & BLOOD GAS ORD ERABLES Final Result Performing Organization Address [facility]/ZIP Co de Phone Number [facility] [address] [place] [address] documented in this encounter Visit Diagnoses Diagnosis [...] documented as of this encounter Care Teams Natural Resources Engineer Relationship Specialty Start Date End Date Jason Batres MD [address] [place] [address] PCP - General 07/27/11 12/31/23 [facility] Internal Medicine, [place]p [address] [place] [address] PCP - General 01/01/24 Alexus De La O, edge stripper 04/18/22 08/13/23 documented as of this encounter
--- OUTSIDE RECORDS SUMMARY | 2024-02-28 16:49 | XMS_ITS | Encounter Summary ---
Author Organization [facility] Address [address] [place] [address] Care Team Providers Care Gasket Winder Name Role Phone Jason Batres MD Primary Care Provi margarita Reason for Visit * Reason Comments Foot Problem * Follow Up (Routine) - Order Cancelled Specialty Diagnoses / Procedures Referred By Eddie crocker Referred To Contact Orthopedic Surgery Diagnoses Other acute osteomyelitis of right foot ([facility]) Rainer Cavazos MD Phone: tel: fax: [facility] - [address] [place] [address] Phone: tel: fax: Referral ID Status Reason Start Date Expiration Date Visits Requested Visits Authorized [id number] Order Cancelled Specialty Services Required 10/14/2019 1 1 Encounter Details Date Type Department Care Team (Latest Contact Info) Description 10/24/2019 13:30 EDT Post-op Visit [facility] [place] [address] Angelina Gonzales DPM [address] [place] [phone] Status post transmetatarsal amputation of foot, right ([facility]) (Primary Dx); Type 2 diabetes mellitus with diabetic polyneuropathy, with long-term current use of insulin ([facility]) Social History Tobacco Use Types Packs/Day [...] Progress Notes * Angelina Gonzales, DPM - 10/24/2019 6414 EDT Images from the original note were not included. HPI: Jeff Scott is a 58 y.o. male patient who presents for follow up 2 weeks status post right foot transmetatarsal amputation with dorsal debridement and wound VAC application. Reports that he has been doing well at [facility]. They have been changing the dressing 3 times a week. Dressing changes have become less and less painful and now only slightly bothersome. Currently denies any pain in the foot. Overall he is feeling well denies any nausea, vomiting, fever, chills. He reports that he has been staying off of the foot and has been tolerating the antibiotics. Review of Systems A ten point review of systems was performed. Pertinent positives are listed below, all others are negative. Vital signs: vitals were not taken for this visit. PHYSICAL EXAM: General: AO x 3, NAD Lower extremity: RLE: Status post transmetatarsal amputation. Plantar flap well coapted, as pictured below. Proximal area Lanter flap does not probe deep. No purulence expressed. No pain on probing. No surrounding erythema or edema. Dorsal debridement site with good granulation tissue, as below. Nopurulence. No surrounding erythema. No malodor or necrosis. Dorsal foot: Plantar flaps: ASSESSMENT: 1. Status post transmetatarsal amputation of foot, right ([facility]) 2. Type 2 diabetes mellitus with diabetic polyneuropathy, with long-term current use of insulin ([facility]) No orders of the defined types were placed in this encounter. PLAN: Mr. Scott presents today for follow-up 2 weeks status post right foot transmetatarsal amputation with dorsal debridement and wound VAC application. This is healing very nicely. No acute signs of infection. Dressing was reapplied today. Instructions written for [facility] to reapplywound VAC today. He is going to continue with this and continue strict nonweightbearing, elevation.I am going to see him back next week for suture removal. We discussed that it will likely be another 1 to 2 months with the wound VAC, until the dorsal wound has filled in more. He knows to call withany questions prior to follow-up and is happy with this plan. Portions of this document have been prepared with speech recognition software or keyboard datastage consultant techniques. Minor irregularities or keyboarding misprints may be present documented in this encounter Plan of Treatment Not on file documented as of this encounter Visit Diagnoses Diagnosis Status post transmetatarsal amputation of foot, right ([facility])- Primary Type 2 diabetes mellitus with diabetic polyneuropathy, with long-term current use of insulin ([facility]) documented in this encounter Historical Medications * This list may reflect changes made after this encounter. magnesium hydroxide (MILK OF MAGNESIA) 400 mg/5 mL suspension Take 30 mL by mouth daily as needed. 1 sodium phosphate (FLEET ENEMA) 19-7 gram/[address] 1 Enema rectally daily as needed. 1 bisacodyL (DULCOLAX) [address] 10 mg rectally as needed for Constipation. 3 added in this encounter Care Teams Gasket Winder Relationship Specialty Start Date End Date Jason Batres MD [address] [place] [address] PCP - General 07/27/11 12/31/23 documented as of this encounter
--- OUTSIDE RECORDS SUMMARY | 2024-02-28 16:50 | XMS_ITS | Encounter Summary ---
Author Organization [facility] Address [address] [place] [address] Care Team Providers Care System Dispatcher Name Role Phone Karishma Batres MD Primary Care Provi margarita Reason for Referral * Laboratory Services (Routine/Next Available) - New Request Specialty Diagnoses / Procedures Referred By [facility] Referred To Contact Diagnoses Acute osteomyelitis of right ankle or foot ([facility]) Procedures C REACTIVE PROTEIN Eleno Murcia MD Phone: tel: fax: Referral ID Status Reason Start Date Expiration Date V isits Requested Visits Authorized [id number] New Request 10/15/2019 1 1 * Laboratory Services (Routine/Next Available) - New Request Specialty Diagnoses / Procedures Referred By [facility] Referred To Contact Diagnoses Acute osteomyelitis of right ankle or foot ([facility]) Procedures SED. RATE:Eleno Park MD Phone: tel: fax: Referral ID Status Reason Start Date Expiration Date V isits Requested Visits Authorized [id number] New Request 10/15/2019 1 1 * Laboratory Services (Routine/Next Available) - New Request Specialty Diagnoses / Procedures [facility] Referred To Contact Diagnoses Acute osteomyelitis of right ankle or foot ([facility]) Procedures CREATININE Eleno Murcia MD Phone: tel: fax: Referral ID Status Reason Start Date Expiration Date V isits Requested Visits Authorized [id number] New Request 10/15/2019 1 1 * Laboratory Services (Routine/Next Available) - New Request Specialty Diagnoses / Procedures Referred By [facility] Referred To Contact Diagnoses Acute osteomyelitis of right ankle or foot ([facility]) Procedures BUN Eleno Murcia MD Phone: tel: fax: Referral ID Status Reason Start Date Expiration Date V isits Requested Visits Authorized [id number] New Request 10/15/2019 1 1 * Laboratory Services (Routine/Next Available) - New Request Specialty Diagnoses / Procedures Referred By [facility] Referred To Contact Diagnoses Acute osteomyelitis of right ankle or foot ([facility]) Procedures COMPLETE BLOOD COUNT AND DIFFERENTIAL Eleno Murcia MD Phone: tel: fax: Referral ID Status Reason Start Date Expiration Date V isits Requested Visits Authorized [id number] New Request 10/15/2019 1 1 Reason for Visit * Reason Comments Wound Check Pt arrives to triage in WC with . Pt reports chronic Right 2nd toe ulceration, now black, necrotic, painful. Pt has redness that extends to midfoot. Denies fever, chills. Pt reports brief episode of chills/ rigors two nights ago. Skin otherwise PWD, RR unlabored, NAD. * Auth/Cert Specialty Diagnoses / Procedures Referred By [facility] Referred To Contact Diagnoses Osteomyelitis ([facility]) Diabetic foot infection ([facility]) Osteomyelitis, unspecified site, unspecified type ([facility]) Referral ID Status Reason Start Date Expiration Date Visits Re quested Visits Authorized [id number] 1 1 Encounter Details Date Type Department Care Team (Late st Contact Info) Description 10/03/2019 20:59 EDT - 10/15/2019 15:09 EDT Hospital Encounter [facility] [address] [place] [id number] Makeda Padron MD [address] [place] [phone] Jarett Astudillo MD [address] [place] [phone] Makeda Viera MD [address] [place] [phone] Virgilio Ramirez MD [address] [place] [phone] Osteomyelitis (HCC-CMS) (Primary Dx); Osteomyelitis, unspecified site, unspecified type (HCC-CMS); Hyperglycemia; Other acute osteomyelitis of right foot (HCC-CMS); Diabetic foot infection (HCC-CMS); Type 2 diabetes mellitus with hyperglycemia, with long-term current use of insulin (HCC-CMS); Acute osteomyelitis of right ankle or foot (HCC-CMS); Uncontrolled type 2 diabetes mellitus with hyperglycemia (HCC-CMS); Type 2 diabetes mellitus with diabetic polyneuropathy, with long-term current use of insulin (HCC-CMS); Other acute osteomyelitis of foot, unspecified laterality (HCC-CMS); Type 2 diabetes mellitus with hyperglycemia, without long-term current use of insulin (HCC-CMS); Acute hematogenous osteomyelitis of right foot (HCC-CMS) Discharge Disposition: Nursing Facility (Skilled) Social History [...] 19:54 EDT documented as of this encounter Last Filed Vital Signs Vital Sign Reading Time Taken Comments Blood Pressure 129/97 10/15/2019 0549 EDT Pulse 70 10/12/2019 2105 EDT Temperature 36.6 ??C (97.8 ??F) 10/15/2019 0549 EDT Respiratory Rate 18 10/15/2019 0549 EDT Oxygen Saturation 100% 10/15/2019 0549 EDT Inhaled Oxygen Concentration - - Weight 110.1 kg (242 lb 11.6 oz) 10/03/2019 2325 EDT Height 188 cm (6' 2) 10/03/20191952 EDT Body Mass Index 31.16 10/03/20191952 EDT documented in this encounter Functional Status [...] Assessment Author Yes 10/04/2019 12:00 FREDERICT Anna Sevilla, JARVIS * Because of a physical, mental, or [...] Sevilla RN documented in this encounter Discharge Summaries * Nikia Hernandez PA-C - 10/13/2019 193 EDT Orthopedic Discharge Summary Primary Care Provider: Karishma Batres Attending Physician: Virgilio Ramirez MD Admit Date: 10/04/2019 discharge Date: 10/15/19 Disposition: Subacute Rehab Problems and Procedures Admitting Diagnosis: Right foot infection Principal/Final Diagnosis: Same Additional Problems Managed in the Hospital Active Hospital Problems Diagnosis Date Noted ??? *Acute osteomyelitis of right ankle or foot ([facility]) 10/03/2019 Added automatically from request for surgery [id number] ??? Diabetic foot infection ([facility]) 10/04/2019 ??? Type 2 diabetes mellitus with diabetic polyneuropathy, with long-term current use of insulin ([facility]) 06/24/2018 Resolved Hospital Problems No resolved problems to display. Principal Procedure: Irrigation debridement partial amputation of second and third rays of the right foot (Dr. Ramirez) Date: 10/05/2019 Secondary Procedures: 10/09/2019 - Right foot transmetatarsal amputation (Dr. Gonzales) 10/15/2019 - PICC placement Hospital Course Jeff Narvaez presented on 10/04/2019 with an extensive infection of his right foot second ray. He was admitted and started on broad-spectrum antibiotics. On 10/05/2019 he went underwent the above procedure with Dr. Virgilio Ramirez. He was then taken back to the OR on 10/09/2019 with Glenys Gonzales for rightTMA. He had daily wet-to-dry dressing changes through 10/13/2019, after which a wound VAC was placedand patient underwent Sunday wound VAC changes. Infectious disease was consulted and he was continued on empiric vancomycin, cefepime, and metronidazole through 10/13/2019 then was changed to Unasyn. On 10/13, pathology came back showing acute osteomyelitis extending to the bone resection margins; therefore, antibiotic was changed to ertapenem with plan for 6 weeks of daily treatment. PICC was placed. Endocrinology was also consulted and patient was started on insulin regimen of both short and long-acting insulin as well as sliding scale insulin. Final recommendations are documented below. Patient had met all discharge requirements and was set up for discharge to [facility] on 10/15/2019. ENDOCRINE RECOMMENDATIONS: Pt has T2DM of unknown duration which has been poorly controlled (Hgb A1c 15.8). He has been non-compliant with home medications and BG monitoring. ?? Placed on basal/bolus regimen in the hospital. Glargine 45 units with aspart 12 units with meals worked for him well. Today he is going to [facility] and sugars are down trending a bit. We will decrease aspart slightly. Fasting sugar is not back yet but will decrease Lantus to 40 units if < 100. ?? Recommendations:? - Continue glargine at 45 units - Aspart 10 units TID with meals - Continue aspart SSI with meals - Avoid prn insulin at bedtime - Continue FSBG ACHS NON-WEIGHT BEARING right lower extremity Wound vac changes every Sunday, Sunday, and Sunday Allergies and Immunizations No Known Allergies Immunization History Administered Date(s) Administered ??? Influenza (whole) 01/08/2007 ? ? Tdap Vaccine =>7YO IM 01/08/2018 Transition of Care Plans Condition at Discharge Good Assessment at Discharge Vital signs: Patient Vitals for the past 12 hrs: BP Resp Temp SpO2 O2 Device 10/15/19 0549 (!) 129/97 18 36.6 ??C (97.8 ??F) 100 % None 10/15/19 0147 122/63 16 37.4 ??C (99.3 ??F) 96 % -- Results Pending at Discharge Test results still pending from this admission None Relevant Studies at Discharge None Last Lab Results at Discharge BUN: Lab Results Component Value Date BUN 6 (L) 10/08/2019 Creatinine: Lab Results Component Value Date CREATININE 0.58 (L) 10/10/2019 CBC: Lab Results Component Value Date WBC 7.35 10/08/2019 RBC 3.98 (L) 10/08/2019 HGB 12.1 (L) 10/08/2019 HCT 35.3 (L) 10/08/2019 MCV 89 10/08/2019 MCH 30.4 10/08/2019 MCHC 34.3 10/08/2019 PLT 311 10/08/2019 DIFFTYPE Auto 10/07/2019 SEDRATE >100 (H) 10/03/2019 Electrolytes: Lab Results Component Value Date NA 134 (L) 10/08/2019 K 3.1 (L) 10/08/2019 CL 94 (L) 10/08/2019 CO2 33 (H) 10/08/2019 Discharge Follow Up Upcoming Appointments Oct 21, 2019 10:30 Televideo Short with Glenys Desir APRN [facility] (--) [address] [id number] Oct 24, 2019 13:30 Post Op Visit with Angelina Gonzales DPM [facility] (--) [address] [place] [address] [facility] [address] Oct 28, 2019 10:00 Televideo Short with Glenys Desir APRN [facility] (--) [address] [id number] Nov 04, 2019 10:30 Televideo Short with Glenys Desir [facility] (--) [address] [id number] Nov 11, 2019 10:30 Televideo Short with Glenys Desir [employer]IST [facility] (--) [address] [phone] Nov 17, 2019 13:00 Televideo Short with Jorge Cunningham MD [facility] (--) [address] [address] Follow-up appointments and procedures Amb Consult/Follow Up Orthopedics Reason for Request: s/p right TMA with Christian 10/09 Authorizing Provider: Rainer Cavazos MD Appointments See Angelina Gonzales DPM @ [facility] is located at [address] [place] [address]. Authorizing Provider: Rainer Cavazos MD Call [phone] with questions Authorizing Provider: Rainer Cavazos MD Call your doctor if you experience any of the following symptoms: - Fevers - General signs of not feeling well - Worsening pain Authorizing Provider: Rainer Cavazos MD Blood Draw/Admin of Contrast per CV[facility] Protocol Order for Blood Draw/Admin of Contrast per [facility] Protocol Authorizing Provider: Eleno Murcia MD Follow-up labs and tests BUN Complete by: As directed Comments: Draw lab weekly Authorizing Provider: Eleno Murcia MD CRP Complete by: As directed Comments: Draw lab weekly Authorizing Provider: Eleno Murcia MD Complete Blood Count and Differential Complete by: As directed Comments: Draw lab weekly Authorizing Provider: Eleno Murcia MD Creatinine Complete by: As directed Comments: Draw lab weekly Authorizing Provider: Eleno Murcia MD ESR Complete by: As directed Comments: Draw lab weekly Authorizing Provider: Eleno Murcia MD Kathleen S Campbell, PA-C 10/15/2019 12:58 Cosigned by Virgilio Ramirez MD at 10/16/2019 11:46 EDT documented in this encounter Medications at Time of Discharge blood glucose meter (FREESTYLE FREEDOM LITE) Test FS BID. 1 Each 0 4 FREESTYLE FREEDOM LITE Use as directed as needed (glucose monitoring). 1 Each 8 acetaminophen (TYLENOL) 500 mg tablet Take 2 Tabs by mouth every 6 hours as needed for Pain or Fever. 0 01/22/20 21 atorvastatin (LIPITOR) 20 mg tablet TAKE ONE TABLET BY MOUTH ONE TIME DAILY 90 Tab 2 0 04/22/19 21 blood glucose (FREESTYLE TEST) test strips 1 Strip by misc (non-drug; combo route) route 2 times daily 100 Each 1 5 11/19/19 22 cholecalciferol, Vitamin D3, 1,000 unit tablet Take 2 Tabs by mouth at bedtime. 0 04/17/19 23 diphenhydrAMINE (BENADRYL) 50 mg capsuleIndications :Acute osteomyelitis of right ankle or foot (HCC-CMS) Take 1 Cap by mouth as needed for up to 1 dose (hives). 2 Cap 0 11/05/19 21 ertapenem 1,000 mg in sodium chloride 0.9 % 50 mLIndications:Acut e osteomyelitis of right ankle or foot (HCC-CMS) Inject 1,000 mg into the vein every 24 hours for 35 days. Or continue until follow-up appointment with ID. Compound in patient ready to use form. Pharmacy may adjust diluent and/or volume. 0 0 11/19/19 20 ibuprofen (MOTRIN) 200 mg tablet Take 800 mg by mouth daily. 09/22/19 21 insulin aspart U-100 (NOVOLOG FLEXPEN) 100 unit/mL (3 mL) injectable pen Inject 10 Units into the skin 3 times daily with meals. 2 Box 3 0 04/22/19 21 insulin glargine (LANTUS SOLOSTAR) 100 unit/mL (3 mL) injection pen Inject 45 Units into the skin at bedtime. 2 Box 2 0 04/22/19 21 IV Infusion Pump Accessory infusion setIndications:Acu te osteomyelitis of right ankle or foot (HCC-CMS) Use as directed. Order includes administration supplies and pump (if required), and catheter care supplies for home IV therapy. 0 0 11/19/19 20 lancets Test BID. 100 Each 1 4 10/31/19 23 levothyroxine (SYNTHROID) 112 mcg tablet Take 1 Tab by mouth daily. 90 Tab 1 9 04/22/19 21 methocarbamoL (ROBAXIN) 750 mg tablet Take 1 Tab by mouth 4 times daily. 30 Tab 0 03/02/20 20 oxyCODONE (ROXICODONE) 5 mg immediate release tablet Take 1-2 Tabs by mouth every 4 hours as needed for Pain. Daily Max: 60 mg 30 Tab 0 03/02/20 20 sodium chloride 0.9 %, flush, flush syringeIndications [...] blood draws. Dispense quantity sufficient. 1 Box 0 10/15/19 21 traMADoL (ULTRAM) 50 mg tablet Take 1 Tab by mouth every 6 hours as needed for Pain. Daily Max: 200 mg 30 Tab 0 02/11/20 20 documented as of this encounter Ordered Prescriptions Prescription Sig Dispense Quantity Refills Last Filled Start Date End Date ertapenem 1,000 mg in sodium chloride 0.9 % 50 mLIndications:Acut e osteomyelitis of right ankle or foot (HCC-CMS) Inject 1,000 mg into the vein every 24 hours for 35 days. Or continue until follow-up appointment with ID. Compound in patient ready to use form. Pharmacy may adjust diluent and/or volume. 0 0 11/19/19 20 IV Infusion Pump Accessory infusion setIndications:Acu te osteomyelitis of right ankle or foot (HCC-CMS) Use as directed. Order includes administration supplies and pump (if required), and catheter care supplies for home IV therapy. 0 0 11/19/19 20 sodium chloride 0.9 %, flush, flush syringeIndications [...] blood draws. Dispense quantity sufficient. 1 Box 0 10/15/19 21 diphenhydrAMINE (BENADRYL) 50 mg capsuleIndications :Acute osteomyelitis of right ankle or foot (HCC-CMS) Take 1 Cap by mouth as needed for up to 1 dose (hives). 2 Cap 0 11/05/19 21 insulin glargine (LANTUS SOLOSTAR) 100 unit/mL (3 mL) injection pen Inject 45 Units into the skin at bedtime. 2 Box 2 0 10/15/19 20 insulin aspart U-100 (NOVOLOG FLEXPEN) 100 unit/mL (3 mL) injectable pen Inject 6 Units into the skin 3 times daily with meals. 2 Box 0 10/15/19 20 insulin aspart U-100 (NOVOLOG FLEXPEN) 100 unit/mL (3 mL) injectable pen Inject 10 Units into the skin 3 times daily with meals. 2 Box 3 0 04/22/19 21 traMADoL (ULTRAM) 50 mg tablet Take 1 Tab by mouth every 6 hours as needed for Pain. Daily Max: 200 mg 30 Tab 0 02/11/20 20 oxyCODONE (ROXICODONE) 5 mg immediate release tablet Take 1-2 Tabs by mouth every 4 hours as needed for Pain. Daily Max: 60 mg 30 Tab 0 03/02/20 20 methocarbamoL (ROBAXIN) 750 mg tablet Take 1 Tab by mouth 4 times daily. 30 Tab 0 03/02/20 20 cholecalciferol, Vitamin D3, 1,000 unit tablet Take 2 Tabs by mouth at bedtime. 0 04/17/19 23 amoxicillin-clavul anate (AUGMENTIN) 875-125 mg per tablet Take 1 Tab by mouth every 12 hours for 5 days. 10 Tab 0 10/15/19 20 acetaminophen (TYLENOL) 500 mg tablet Take 2 Tabs by mouth every 6 hours as needed for Pain or Fever. 0 01/22/20 21 documented in this encounter Discharge Disposition Disposition Code Departure Means Destination Nursing Facility (Skilled) S killed Nursing documented in this encounter Progress Notes * Eleno Murcia MD - 10/15/2019 1509 EDT INFECTIOUS DISEASES CONSULT SERVICE PROGRESS NOTE Patient: Jeff Narvaez : 1960 Service: Ortho Date of Admission: 10/03/2019 Today's Date: 10/15/19 CHIEF COMPLAINT: Foot infection 24 notable events: none major Subjective: doing well today, pain is well controlled, no N/V or diarrhea or rash, no perceived side effects to abx. Likely to go to [facility] today. REVIEW OF SYSTEMS: 10-point review of systems is negative except as mentioned above ALLERGIES: No Known Allergies MEDICATIONS: Reviewed in MAR. Pertinent for Current Facility-Administered Medications Medication Route Frequency ??? acetaminophen (TYLENOL) tablet 1,000 mg oral Q6H PRN ??? alteplase (CATHFLO ACTIVASE) injection 2 mg intercatheter PRN ??? cholecalciferol (Vitamin D3) tablet 2,000 Units oral QHS ??? dextrose 50 % solution 12.5 g intravenous PRN ??? ertapenem (INVANZ) 1,000 mg in sodium chloride (NS MBP) 50 mL IVPB intravenous DAILY ??? glucagon injection 1 mg intramuscular PRN ??? HYDROmorphone (PF) (DILAUDID) 0.5 mg/0.5 mL syringe ??? insulin aspart U-100 (NOVOLOG FLEXPEN) injection 10 Units subcutaneous TID WC ??? insulin aspart U-100 (NOVOLOG FLEXPEN) injection subcutaneous TID WC ??? insulin glargine (LANTUS SOLOSTAR) injection pen 45 Units subcutaneous QHS ??? lactated ringers (LR) infusion intravenous CONTINUOUS ??? lactated ringers (LR) infusion intravenous CONTINUOUS ??? levothyroxine (SYNTHROID) tablet 112 mcg oral DAILY ??? lidocaine (PF) 10 mg/mL (1 %) injection 2 mg intradermal PRN ??? methocarbamoL (ROBAXIN) tablet 750 mg oral QID ??? Multivitamins with Minerals tablet 1 Tab oral QHS ??? oxyCODONE (ROXICODONE) immediate release tablet 5-10 mg oral Q4H PRN ??? sodium chloride 0.9 % (flush) flush 10 mL intercatheter WEEKLY ??? sodium chloride 0.9 % (flush) flush 10 mL intercatheter PRN ??? sodium chloride 0.9 % (flush) flush 20 mL intercatheter PRN ??? sodium chloride 0.9 % (NS) infusion intravenous CONTINUOUS ??? traMADoL (ULTRAM) tablet 50 mg oral Q6H PRN ??? zinc sulfate (ZINCATE) capsule 220 mg oral QHS Current Outpatient Medications Medication ??? acetaminophen (TYLENOL) [...] syringe ??? traMADoL (ULTRAM) 50 mg tablet PHYSICAL EXAM: VS: BP (!) 129/97 (BP Cuff Location: Right arm, BP Patient Position: Semi fowlers) Pulse 70 Temp 36.6 ??C (97.8 ??F) (Tympanic) Resp 18 Ht 188 cm (74) Wt (!) 110.1 kg (242 lb 11.6 oz) SpO2 100% BMI 31.16 kg/m?? GENL: pleasant, NAD EENT: sclerae anicteric, moist mucous membranes, no ulcers / lesions / thrush NECK: supple CARD: RRR, no murmurs / rubs / gallops PULM: clear to auscultation bilaterally w/o wheezes / rhonchi / rales ABDM: non-distended, soft, non-tender MSK: R foot is s/p TMA and with wound vac in place EXTR: warm and well perfused, no edema SKIN: no rashes, no jaundice NEURO: awake, alert and oriented PSYCH: non-anxious, normal affect ACCESS: pIV LABORATORY: Reviewed in detail in PRISM. Estimated Creatinine Clearance: 185.6 mL/min (A) (by [...] cortical irregularity loosening are identified. 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 w/ some memory and balance deficits, prior [...] Ertapenem 1g IV Q24H until 11/19/2019 - I will place ID f/u visit orders - Weekly CBC/dif, BMP, ESR/CRP while on IV abx Recommendations discussed with primary team Trent Murcia MD [id number] Infectious Diseases Diagnosis: osteomyelitis Location: R foot Intravenous antibiotic name and dose: ertapenem 1g IV q24h End of therapy date: 11/19/19 Location to receive IV therapy: [facility] Plan for oral antibiotics after IV complete: none Outpatient OPAT ID provider: Divina Cunningham * Morris Parsons, PT - 10/15/2019 6213 EDT he [facility] Rehabilitation Therapy Acute Therapies [facility] Physical Therapy Discontinue/Discharge Note Date of Service: 10/16/2019 Precautions: activity as tolerated, non weight bearing right lower extrmeity SUBJECTIVE: none OBJECTIVE: Intervention Completed Today: No treatment rendered today due to: patient has been discharged from the hospital. In this reporting period 10/06/19 to 10/16/2019, the patient has been seen for physical therapy services. Please refer to the physical therapy notes for specifics on the patient's functional status and treatment sessions. Relevant objective findings: INTEGUMENTARY/ANTHROPOMETRIC CHARACTERISTICS: Copied from the physical therapy note 10/10/19 Copied from Podiatry note 10/09/19 Brief Post-Op Note?? Pre-Op Diagnosis:??Right foot abscess, gangrene? Procedure(s):??Right foot transmetatarsal amputation MUSCLE PERFORMANCE: Copied from the physical therapy note 10/10/19 Therapeutic exercises were reinforced and the patient was provided with cues to facilitate improvedtechnique/proper performance in order to optimize outcome. Right lower extremity Supine - active assisted x 5 repetitions with assist and cues Hip flexion Hip abduction Knee extension BALANCE, MOBILITY, AND GAIT: Copied from the physical therapy note 10/10/19 Non weight bearing right lower extremity Bed mobility training - supine to sit to the right with the head of bed up 30 degrees and no use ofthe rail and minimal contact assist of 1 for his right lower extremity - sit to supine to the rightwith the head of bed up 30 degrees and no use of the rail and minimal contact assist of 1 for his right lower extremity - cues needed for technique Transfer training - sit to stand from the bed and stand to sit to the bed with the rolling walker and minimal contact assist of 1 - done multiple times - he was able to take a few hops to the right to move up towards the head of the bed with the rolling walker and minimal contact assist of 1 - he did well maintaining the non weight bearing status of his right lower extremity - bed to the reclinertransfer not done as the patient wanted to be in bed at the end of the physical therapy session to elevate his right lower extremity - cues needed for technique, hand placement, and sequencing Ambulation training - not evaluated due to increased right lower extremity discomfort ASSESSMENT: Physical therapy services in this setting have been discontinued secondary to: Patient has been discharged from the hospital Physical Therapy Diagnosis: Impaired aerobic capacity and endurance, Impaired gait, Impaired mobility, Impaired movement system, Impaired posture, Pain, Lower extremity dysfunction Physical Therapy Prognosis: This patient has made slight progress with functional activities since his physical therapy initial examination. Progress has been slow due to his ability to process information from his previous brain tumor. He still needs physical assist for mobility. He was able to maintain the non weight bearing status of his right lower extremity. I support transfer to subacute rehabilitation to assist him in regaining as much functional independence as possible prior to returning home. The patient did not achieve the goals set at his physical therapy initial examination due to the short time frame. These goals are discontinued in this setting, but they can be continued withthe physical therapist at subacute rehabilitation. Copied from the physical therapy initial evaluation note Long-Term Goals: all goals discontinued Time Frame: 1-2 weeks Goal: bed mobility: supervision Goal: transfers: supervision bed<>chair Goal: gait: ambulation >50 feet with supervision Goal: stairs: ascending/descending stairs with min contact assist PLAN: Discontinue physical therapy services. Recommended Discharge Destination: Sub-acute rehabilitation Recommended Discharge Services: Physical therapy at rehabilitation facility Recommended Equipment Needs: To be determined by next care provider Other recommendations: No other consults recommended at this time MORRIS PARSONS PT 10/16/2019 13:55 [id number] * Francine Cheek [facility] - 10/15/2019 1213 EDT CASE MANAGEMENT DISCHARGE NOTE Confirmed with team that pt is medically stable for discharge. Confirmed with Millie Solano in admissions at [facility] that facility is able to accept pt with IV abx and wound vac today. DISCHARGE DATE/TIME: 10/15/2019 at 3:00pm DESTINATION: [facility] (If discharging to [facility]) COVID swab ordered and completed: Ordered and completed yesterday 10/14/2019with negative results received. TRANSPORTATION: [employer] wheelchair van - pt will be picked up in the [facility] lobby. ACCEPTING MD AND NUMBER: Dr. Edson Zepeda [phone] RN REPORT/UNIT: [phone] HAZ TECH/CHARGE/MD NOTIFIED (Y/N): Y FORMS: PASRR and COLST IM SIGNED (Y/NA): NA PHARMACY/PRESCRIPTIONS: Please send pt with hard copies of prescriptions for any controlled medications. Patient and/or family who participated in discharge plan: Patient and Nguyen (P: [phone]) [place], [place] Ext [phone] Pager #[phone] * Yusef Mccarty MD - 10/15/2019 0917 EDT Endocrine/Diabetes Follow Up/Progress Note Admit Date: 10/03/2019 Hospital day LOS: 11 days Date of Service: 10/15/2019 Reason for Following: T2DM with hyperglycemia Subjective: Pt is resting comfortably in bed, no complaints today, has a good appetite. Going to [facility] today Diabetes HX: Duration: Unknown Control: Currently poor Complications: Neuropathy, chronic R foot ulceration s/p 2nd and 3rd ray amputations Home Regimen: Non-compliant with glimepiride 4 mg PO BID, glargine 70 units daily, lispro 40 units w/ dinner, exenatide 2 mg SQ weekly Self Care, SBGM: Does not check BG regularly Regular Diabetes Provider: PCP ROS: Patient complains of: Polyuria Polydipsia Cramps/pain in feet Patient Denies: Fatigue Hypoglycemia Chest Pain Dyspnea/SOB Nausea/vomitting Diarrhea Constipation Objective/Physical Exam: VS: BP: (!) 129/97 Pulse: 70 Heart Rate: 85 BPM Resp: 18 Temp: 36.6 ??C (97.8 ??F) SpO2: 100 % O2 Flow Rate (L/min): 0 l/min O2 Device: None FIO2 %: 98 % Weight: Weight : (!) 110.1 kg (242 lb 11.6 oz) Body mass index is 31.16 kg/m??. Food Intake: DIET CONSISTENT CARBOHYDRATE Discharge Diet Activity:up with assistance Exam: Gen: Awake, alert, resting comfortably in bed Respiratory: Clear to auscultation bilaterally, nonlabored breathing on RA Cardiovascular: RRR, +S1/S2 Extremities: Pedal Pulses: Intact DP on L foot, R foot wrapped and unable to assess (photos reviewed) Gastrointestinal:: Soft, NTND, normoactive bowel sounds, no organomegaly or masses noted. Skin: Warm, dry; no skin ulcerations or breaks on L foot; dystrophic toenails on L Neurologic: Appears somewhat confused and having difficulty remembering details. Reported sensationto light touch L foot Data Review: Labs: Lab Results Component Value Date HGBA1C 15.8 (H) 10/06/2019 Lab Results Component Value Date SERGLU 203 (H) 10/07/2019 NA 134 (L) 10/08/2019 K 3.1 (L) 10/08/2019 CL 94 (L) 10/08/2019 CO2 33 (H) 10/08/2019 BUN 6 (L) 10/08/2019 CREATININE 0.58 (L) 10/10/2019 CALCIUM 8.7 10/04/2019 Assessment/Plan: 58 y/o M with PMHx T2DM (poorly controlled), craniopharyngioma s/p resection (2006), chronic R foot diabetic ulceration s/p distal R 2nd toe amputation, hypothyroidism, memory impairment (unclear) who presented to [facility] 10/03/2019 with R foot pain over 1 week. Found to have R necrotic foot ulceration w/ osteomyelitis of second and third rays, s/p debridement, 2nd and 3rd ray amputations, transmetatarsal amputation. ?? Pt has T2DM of unknown duration which has been poorly controlled (Hgb A1c 15.8). He has been non-compliant with home medications and BG monitoring. Placed on basal/bolus regimen in the hospital. Glargine 45 units with aspart 12 units with meals worked for him well. Today he is going to NICHOLE and sugars are down trending a bit. We will decrease Novolog slightly. Fasting sugar is not back yet but will decrease Lantus to 40 units if < 100. Recommendations: - Continue glargine at 45 units. - Decrease Novolog To 10 units TID with meals - Continue Novolog SSI with meals - Avoid prn insulin at bedtime - Continue FSBG ACHS Discharge recommendations Same as above. Yusef Barcenas MD 10/15/2019 9:25 * Rainer Cavazos MD - 10/15/2019 0606 EDT Orthopaedic Progress Note Pt Name: Jeff Narvaez Problem:??Right foot infection Procedure:??Right TMA??w/ Dr. Pham??on 10/09/2019 24 Hr NAEO S- doing well today. Tolerated wound VAC change. Denies recent nausea vomiting fevers, chills. O: Blood pressure (!) 129/97, pulse 70, temperature 36.6 ??C (97.8 ??F), temperature source Tympanic, resp. rate 18, height 188 cm (74), weight (!) 110.1 kg (242 lb 11.6 oz), SpO2 100 %. Focused MSK: RLE Wound base healing well with granulation tissue forming. Wound at the dorsum of the foot is repacked WWP Sensation globally decreased Able to fire AT, GSC Labs: A: Jeff Narvaez is a 58 y.o. that is s/p above. P: NWB RLE, AT Ambulation, SCDs for DVT prophylaxis MWF wound VAC changes Unasyn 3 g IV every 6 hours, transition to Augmentin 875/125 mg p.o. twice daily upon discharge-continue antibiotics until 10/19/2019 Carb consistent diet PT recommending NICHOLE Multimodal pain control Disposition- NICHOLE today Rainer Cavazos MD 10/15/19 6:06 0826 * Francine Cheek [facility] - 10/14/2019 1339 EDT SW/CM Progress Note: Pt is awaiting NICHOLE placement. He is accepted at [facility] pending insurance authorization from [facility]. Anticipate he will be able to d/c tomorrow. COVID-19 swab will be needed today with results back prior to discharge to [facility] [place] Ext [phone] Pager #[phone] * Eleno Murcia MD - 10/14/2019 6530 EDT INFECTIOUS DISEASES CONSULT SERVICE PROGRESS NOTE Patient: Jeff Narvaez : 1960 Service: Ortho Date of Admission: 10/03/2019 Today's Date: 10/14/19 CHIEF COMPLAINT: Foot infection 24 notable events: none major Subjective: doing well today, pain is well controlled, no N/V or diarrhea or rash, no perceived side effects to abx REVIEW OF SYSTEMS: 10-point review of systems is negative except as mentioned above ALLERGIES: No Known Allergies MEDICATIONS: Reviewed in MAY. Pertinent for Current Facility-Administered Medications Medication Route Frequency ??? acetaminophen (TYLENOL) tablet 1,000 mg oral Q6H PRN ??? ampicillin-sulbactam (UNASYN) 3,000 mg in sodium chloride (NS MBP) 100 mL infusion intravenous Q6H ??? cholecalciferol (Vitamin D3) tablet 2,000 Units oral QHS ??? dextrose 50 % solution 12.5 g intravenous PRN ??? glucagon injection 1 mg intramuscular PRN ??? HYDROmorphone (PF) (DILAUDID) 0.5 mg/0.5 mL syringe ??? insulin aspart U-100 (NOVOLOG FLEXPEN) injection 12 Units subcutaneous TID WC ??? insulin aspart U-100 (NOVOLOG FLEXPEN) injection subcutaneous TID WC ??? insulin glargine (LANTUS SOLOSTAR) injection pen 45 Units subcutaneous QHS ??? lactated ringers (LR) infusion intravenous CONTINUOUS ??? lactated ringers (LR) infusion intravenous CONTINUOUS ??? levothyroxine (SYNTHROID) tablet 112 mcg oral DAILY ??? lidocaine (PF) 10 mg/mL (1 %) injection 2 mg intradermal PRN ??? methocarbamoL (ROBAXIN) tablet 750 mg oral QID ??? Multivitamins with Minerals tablet 1 Tab oral QHS ??? oxyCODONE (ROXICODONE) immediate release tablet 5-10 mg oral Q4H PRN ??? sodium chloride 0.9 % (NS) infusion intravenous CONTINUOUS ??? traMADoL (ULTRAM) tablet 50 mg oral Q6H PRN ??? zinc sulfate (ZINCATE) capsule 220 mg oral QHS PHYSICAL EXAM: VS: BP 122/68 (BP Cuff Location: Right arm, BP Patient Position: Semi fowlers) Pulse 70 Temp 35.6 ??C (96.1 ??F) (Tympanic) Resp 16 Ht 188 cm (74) Wt (!) 110.1 kg (242 lb 11.6 oz) SpO2 95% BMI 31.16 kg/m?? GENL: pleasant, NAD EENT: sclerae anicteric, moist mucous membranes, no ulcers / lesions / thrush NECK: supple CARD: RRR, no murmurs / rubs / gallops PULM: clear to auscultation bilaterally w/o wheezes / rhonchi / rales ABDM: non-distended, soft, non-tender MSK: R foot is s/p TMA and with wound vac in place EXTR: warm and well perfused, no edema SKIN: no rashes, no jaundice NEURO: awake, alert and oriented PSYCH: non-anxious, normal affect ACCESS: pIV LABORATORY: Reviewed in detail in PRISM. Estimated Creatinine Clearance: 185.6 mL/min (A) (by [...] cortical irregularity loosening are identified. ASSESSMENT: Mr Narvaez is a 58yoM with h/o poorly controlled t2DM, craniopharyngioma s/p resection [id number] w/ some memory and balance deficits, prior amputations of R 2nd toe (2016), who is currently admitted for R foot infection and ostemomyelitis. He is now s/p TMA on 10/08; Op note suggests no grossproximal extension of infection; however, the pathology shows acute osteomyelitis extending to the bone resection margin. Thus, 6 weeks of intravenous antibiotics is indicated. Unasyn at the current dose would be the best and most narrow choice. Ertapenem 1g IV Q24H would cover everything except the enterococcus, which was in relatively low number and likely not the predominant organism, so likely would be OK. RECOMMENDATIONS: - Continue unasyn 3g IV Q6H until 11/19/2019 - Ertapenem 1g IV Q24H until 11/19/2019 is a 2nd line option - OK to place PICC Recommendations discussed with primary team Trent Murcia MD [id number] Infectious Diseases * Kala Roman DO - 10/14/2019 1048 EDT Endocrine/Diabetes Follow Up/Progress Note Admit Date: 10/03/2019 Hospital day LOS: 10 days Date of Service: 10/14/2019 Reason for Following: T2DM with hyperglycemia Subjective: Pt is resting comfortably in bed, no complaints today, has a good appetite. Diabetes HX: Duration: Unknown Control: Currently poor Complications: Neuropathy, chronic R foot ulceration s/p 2nd and 3rd ray amputations Home Regimen: Non-compliant with glimepiride 4 mg PO BID, glargine 70 units daily, lispro 40 units w/ dinner, exenatide 2 mg SQ weekly Self Care, SBGM: Does not check BG regularly Regular Diabetes Provider: PCP ROS: Patient complains of: Polyuria Polydipsia Cramps/pain in feet Patient Denies: Fatigue Hypoglycemia Chest Pain Dyspnea/SOB Nausea/vomitting Diarrhea Constipation Objective/Physical Exam: VS: BP: 122/68 Pulse: 70 Heart Rate: 64 BPM Resp: 16 Temp: 35.6 ??C (96.1 ??F) SpO2: 95 % O2 Flow Rate (L/min): 0 l/min O2 Device: None FIO2 %: 98 % Weight: Weight : (!) 110.1 kg (242 lb 11.6 oz) Body mass index is 31.16 kg/m??. Food Intake: DIET CONSISTENT CARBOHYDRATE Discharge Diet Activity:up with assistance Exam: Gen: Awake, alert, resting comfortably in bed Respiratory: Clear to auscultation bilaterally, nonlabored breathing on RA Cardiovascular: RRR, +S1/S2 Extremities: Pedal Pulses: Intact DP on L foot, R foot wrapped and unable to assess (photos reviewed) Gastrointestinal:: Soft, NTND, normoactive bowel sounds, no organomegaly or masses noted. Skin: Warm, dry; no skin ulcerations or breaks on L foot; dystrophic toenails on L Neurologic: Appears somewhat confused and having difficulty remembering details. Reported sensationto light touch L foot Data Review: Labs: Lab Results Component Value Date HGBA1C 15.8 (H) 10/06/2019 Lab Results Component Value Date SERGLU 203 (H) 10/07/2019 NA 134 (L) 10/08/2019 K 3.1 (L) 10/08/2019 CL 94 (L) 10/08/2019 CO2 33 (H) 10/08/2019 BUN 6 (L) 10/08/2019 CREATININE 0.58 (L) 10/10/2019 CALCIUM 8.7 10/04/2019 Assessment/Plan: 58 y/o M with PMHx T2DM (poorly controlled), craniopharyngioma s/p resection (2006), chronic R foot diabetic ulceration s/p distal R 2nd toe amputation, hypothyroidism, memory impairment (unclear) who presented to [facility] 10/03/2019 with R foot pain over 1 week. Found to have R necrotic foot ulceration w/ osteomyelitis of second and third rays, s/p debridement, 2nd and 3rd ray amputations, transmetatarsal amputation. ?? Pt has T2DM of unknown duration which has been poorly controlled (Hgb A1c 15.8). He has been non-compliant with home medications and BG monitoring. Placed on basal/bolus regimen in the hospital. Glargine 45 units with aspart 12 units with meals. Did well yesterday, did have a slight dip last night after dinner with an HS BG of 118 and this AM BGis 175. Will make no changes today. If he continues to trend higher in the morning, can consider going up on glargine. But doing well for now. Patient will be going to [facility] when ready for discharge and have discussed with patient the need for strict glycemic control for proper wound healing. Will need to be discharged on insulin and patient is agreeable to this plan. Recommendations: - Continue glargine at 45 units - Continue aspart 12 units TID with meals - Continue aspart SSI Continue FSBG ACHS Goal is 110-150 fasting and 120-180 other times. Kala Roman DO 10/14/2019 10:48 Cosigned by Yusef Mccarty MD at 10/14/2019 13:22 EDT Associated attestation - Yusef Mccarty MD - 10/14/2019 1322 EDT Attestation statement: I saw and examined the patient with the resident/fellow. I agree with the findings and plan of care documented in the resident's/fellow's note. * Shelly Garcia, PT - 10/14/2019 1042 EDT [facility] Rehabilitation Therapy Acute Therapy [facility] Physical Therapy Contact Note Date of Service: 10/14/2019 Attempted to see patient today but he declined PT as he had just gotten to chair with nursing. PT will follow-up per plan of care. Shelly Garcia, PT 10/14/2019 10:42 * Rainer Cavazos MD - 10/14/2019 0144 EDT Orthopaedic Progress Note Pt Name: Jeff Narvaez Problem:??Right foot infection Procedure:??Right TMA??w/ Dr. Pham??on 10/09/2019 24 Hr NAEO S- doing well this morning. Denies any recent nausea, vomiting, fevers, chills. O: Blood pressure 114/60, pulse 70, temperature 36.8 ??C (98.2 ??F), temperature source Tympanic, resp. rate 16, height 188 cm (74), weight (!) 110.1 kg (242 lb 11.6 oz), SpO2 97 %. Focused MSK: RLE Wound VAC in place over the dorsal lateral aspect of the right foot, holding suction appropriately WWP Sensation globally decreased Able to fire EHL, FHL, AT, GSC Labs: A: Jeff Narvaez is a 58 y.o. that is s/p above. P: NWB RLE, AAT Ambulation, SCDs for DVT prophylaxis MWF wound VAC changes Stop vancomycin, cefepime, metronidazole, start Unasyn 3 g IV every 6 hour per ID recommendations- change to Augmentin 875/125 mg p.o. twice daily upon discharge-continue antibiotics until 10/19/2019 Carb consistent diet PT recommending NICHOLE Palpable pain control Disposition pending NICHOLE placement Rainer Cavazos MD 10/14/19 1:44 0826 * Francine Cheek [facility] - 10/13/2019 1241 EDT SW/CM Progress Note: Spoke with pt's Nguyen (P: [phone]). She would like for pt to go to [facility] when medically ready for discharge. Sent message to Millie Solano in admissions who has not made a decision on pt's acceptance as of yet. Pt does have a bed offer at [facility] if [facility] is unable [place] Ext [phone] Pager #[phone] * Eleno Murcia MD - 10/13/2019 1023 EDT INFECTIOUS DISEASES CONSULT SERVICE PROGRESS NOTE Patient: Jeff Narvaez : 1960 Service: Ortho Date of Admission: 10/03/2019 Today's Date: 10/13/19 CHIEF COMPLAINT: Foot infection 24 notable events: none major Subjective: doing well today, pain is well controlled, no N/V or diarrhea or rash, no perceived side effects to abx REVIEW OF SYSTEMS: 10-point review of systems is negative except as mentioned above ALLERGIES: No Known Allergies MEDICATIONS: Reviewed in MAY. Pertinent for Current Facility-Administered Medications Medication Route Frequency ??? acetaminophen (TYLENOL) tablet 1,000 mg oral Q6H PRN ??? cholecalciferol (Vitamin D3) tablet 2,000 Units oral QHS ??? dextrose 50 % solution 12.5 g intravenous PRN ??? glucagon injection 1 mg intramuscular PRN ??? HYDROmorphone (PF) (DILAUDID) 0.5 mg/0.5 mL syringe ??? insulin aspart U-100 (NOVOLOG FLEXPEN) injection 12 Units subcutaneous TID WC ??? insulin aspart U-100 (NOVOLOG FLEXPEN) injection subcutaneous TID WC ??? insulin glargine (LANTUS SOLOSTAR) injection pen 45 Units subcutaneous QHS ??? lactated ringers (LR) infusion intravenous CONTINUOUS ??? lactated ringers (LR) infusion intravenous CONTINUOUS ??? levothyroxine (SYNTHROID) tablet 112 mcg oral DAILY ??? lidocaine (PF) 10 mg/mL (1 %) injection 2 mg intradermal PRN ??? methocarbamoL (ROBAXIN) tablet 750 mg oral QID ??? Multivitamins with Minerals tablet 1 Tab oral QHS ??? oxyCODONE (ROXICODONE) immediate release tablet 5-10 mg oral Q4H PRN ??? sodium chloride 0.9 % (NS) infusion intravenous CONTINUOUS ??? traMADoL (ULTRAM) tablet 50 mg oral Q6H PRN ??? zinc sulfate (ZINCATE) capsule 220 mg oral QHS PHYSICAL EXAM: VS: BP 118/64 (BP Patient Position: Semi fowlers) Pulse 70 Temp 36 ??C (96.8 ??F) (Tympanic) Resp 16 Ht 188 cm (74) Wt (!) 110.1 kg (242 lb 11.6 oz) SpO2 96% BMI 31.16 kg/m?? GENL: pleasant, NAD EENT: sclerae anicteric, moist mucous membranes, no ulcers / lesions / thrush NECK: supple CARD: RRR, no murmurs / rubs / gallops PULM: clear to auscultation bilaterally w/o wheezes / rhonchi / rales ABDM: non-distended, soft, non-tender MSK: R foot is s/p TMA, wrapped post-operatively and not taken down today EXTR: warm and well perfused, no edema SKIN: no rashes, no jaundice NEURO: awake, alert and oriented PSYCH: non-anxious, normal affect ACCESS: pIV LABORATORY: Reviewed in detail in PRISM. Estimated Creatinine Clearance: 185.6 mL/min (A) (by [...] cortical irregularity loosening are identified. ASSESSMENT: Mr Narvaez is a 58yoM with h/o poorly controlled t2DM, craniopharyngioma s/p resection [id number] w/ some memory and balance deficits, prior amputations of R 2nd toe (2016), who is currently admitted for R foot infection and ostemomyelitis. He is now s/p TMA on 10/08; Op note suggests no proximal extension of infection. Surgical pathology is still pending at this time. Reasonable to continue on IV antibiotics for now, and change to oral when he is otherwise ready fordischarge. Unasyn to augmentin would be reasonable for the recovered organisms. RECOMMENDATIONS: - Stop vancomycin, ceftazidime, and metronidazole - Start unasyn 3g IV Q6H - When ready for discharge, change to augmentin 875/125mg PO BID - Continue above antibiotics until 10/19/2019 Recommendations discussed with primary team Trent Murcia MD [id number] Infectious Diseases * Kala Roman DO - 10/13/2019 0929 EDT Endocrine/Diabetes Follow Up/Progress Note Admit Date: 10/03/2019 Hospital day LOS: 9 days Date of Service: 10/13/2019 Reason for Following: T2DM with hyperglycemia Subjective: Pt is resting comfortably in bed, no complaints today, has a good appetite. Diabetes HX: Duration: Unknown Control: Currently poor Complications: Neuropathy, chronic R foot ulceration s/p 2nd and 3rd ray amputations Home Regimen: Non-compliant with glimepiride 4 mg PO BID, glargine 70 units daily, lispro 40 units w/ dinner, exenatide 2 mg SQ weekly Self Care, SBGM: Does not check BG regularly Regular Diabetes Provider: PCP ROS: Patient complains of: Polyuria Polydipsia Cramps/pain in feet Patient Denies: Fatigue Hypoglycemia Chest Pain Dyspnea/SOB Nausea/vomitting Diarrhea Constipation Objective/Physical Exam: VS: BP: 123/74 Pulse: 70 Heart Rate: 74 BPM Resp: 16 Temp: 36.1 ??C (97 ??F) SpO2: 94 % O2 Flow Rate (L/min): 0 l/min O2 Device: None FIO2 %: 98 % Weight: Weight : (!) 110.1 kg (242 lb 11.6 oz) Body mass index is 31.16 kg/m??. Food Intake: DIET CONSISTENT CARBOHYDRATE Activity:up with assistance Exam: Gen: Awake, alert, resting comfortably in bed Respiratory: Clear to auscultation bilaterally, nonlabored breathing on RA Cardiovascular: RRR, +S1/S2 Extremities: Pedal Pulses: Intact DP on L foot, R foot wrapped and unable to assess (photos reviewed) Gastrointestinal:: Soft, NTND, normoactive bowel sounds, no organomegaly or masses noted. Skin: Warm, dry; no skin ulcerations or breaks on L foot; dystrophic toenails on L Neurologic: Appears somewhat confused and having difficulty remembering details. Reported sensationto light touch L foot Data Review: Labs: Lab Results Component Value Date HGBA1C 15.8 (H) 10/06/2019 Lab Results Component Value Date SERGLU 203 (H) 10/07/2019 NA 134 (L) 10/08/2019 K 3.1 (L) 10/08/2019 CL 94 (L) 10/08/2019 CO2 33 (H) 10/08/2019 BUN 6 (L) 10/08/2019 CREATININE 0.58 (L) 10/10/2019 CALCIUM 8.7 10/04/2019 Glucose - 269 (AM), 156, 107 Assessment/Plan: 58 y/o M with PMHx T2DM (poorly controlled), craniopharyngioma s/p resection (2006), chronic R foot diabetic ulceration s/p distal R 2nd toe amputation, hypothyroidism, memory impairment (unclear) who presented to [facility] 10/03/2019 with R foot pain over 1 week. Found to have R necrotic foot ulceration w/ osteomyelitis of second and third rays, s/p debridement, 2nd and 3rd ray amputations, transmetatarsal amputation. ?? Pt has T2DM of unknown duration which has been poorly controlled (Hgb A1c 15.8). He has been non-compliant with home medications and BG monitoring. Placed on basal/bolus regimen in the hospital. Glargine was decreased yesterday to 45 units from 55units based on significant drop in fasting BG. Meal time aspart decreased to 12 units as well. Did not have much postprandial spikes yesterday and fasting BG held steady at 170, HS 161. No changes today. Patient will be going to [facility] when ready for discharge and have discussed with patient the need for strict glycemic control for proper wound healing. Will need to be discharged on insulin and patient is agreeable to this plan. Recommendations: - Continue glargine at 45 units - Continue aspart 12 units TID with meals - Continue aspart SSI Continue FSBG ACHS Goal is 110-150 fasting and 120-180 other times. Kala Roman DO 10/13/2019 9:29 Cosigned by Yusef Mccarty MD at 10/13/2019 13:30 EDT Associated attestation - Yusef Mccarty MD - 10/13/2019 1330 EDT Attestation statement: I saw and examined the patient with the resident/fellow. I agree with the findings and plan of care documented in the resident's/fellow's note. * Rainer Cavazos MD - 10/13/2019 0621 EDT Orthopaedic Progress Note Pt Name: Jeff Narvaez Problem:??Right foot infection Procedure:??Right TMA??w/ Dr. Pham??on 10/09/2019 24 Hr NAEO S- doing well today. Pain is been well controlled. Denies nausea, vomiting, fevers, chills. O: Blood pressure 123/74, pulse 70, temperature 36.1 ??C (97 ??F), temperature source Tympanic, resp. rate 16, height 188 cm (74), weight (!) 110.1 kg (242 lb 11.6 oz), SpO2 94 %. Focused MSK: RLE Wound healing well with granulation tissue forming at the wound base. No evidence of pus or purulence expressed from surrounding areas. There is an area of undermining with some serosanguinous drainage from the proximal aspect of the inferior incision WWP Sensation globally decreased Able to fire EHL, FHL, AT, GSC Labs: BUN/Cr/glu/ALT/AST/amyl/lip: --/0.58/--/--/--/--/-- (10/10 631) A: Jeff Narvaez is a 58 y.o. that is s/p above. P: NWB RLE, AAT Ambulation, SCDs for DVT prophylaxis Will place wound vac once machine is brought to bedside MWF wound VAC changes Continue vancomycin, cefepime, metronidazole per ID recommendations Carb consistent diet PT recommending NICHOLE Multimodal pain control Disposition pending NICHOLE placement Rainer Cavazos MD 10/13/19 6:21 0826 Cosigned by Angelina Gonzales DPM at 10/13/2019 8:57 EDT Associated attestation - Angelina Gonzales DPM - 10/13/2019 0857 EDT Attestation statement: I saw and examined the patient with the resident/fellow. I agree with the findings and plan of care documented in the resident's/fellow's note. Photos of amputation site in scans today. Dorsal wound with good granulation tissue- no purulence, probing, or fluctuance. Medial incision well coapted. Plantar incision well coapted. Area left open at proximal aspect of incision probes proximal medially ~ 2 cm. No purulence. Will apply wound VAC to dorsal wound today. Will pack plantar wound today. Will need changes 3x/week. Continues strict NWB, elevation. Discussed with Jeff today, and Nguyen over the weekend- plan for discharge to [facility] when ready for discharge due to NWB status, wound VAC, antibiotics. Appreciate case management , ID, endocrine, and PT assistance. * Rainer Cavazos MD - 10/12/2019 0843 EDT Orthopaedic Progress Note Pt Name: Jeff Narvaez ?? Problem:??Right foot infection Procedure:??Right TMA??w/ Dr. Pham??on 10/09/2019 24 Hr NAEO S- doing well today. No nausea vomiting fevers, chills, chest pain or shortness breath. O: Blood pressure 120/70, pulse 89, temperature 35.8 ??C (96.4 ??F), temperature source Tympanic, resp. rate 16, height 188 cm (74), weight (!) 110.1 kg (242 lb 11.6 oz), SpO2 96 %. Focused MSK: RLE Wound on the dorsal lateral aspect of the right foot is healing well. There is no evidence of pus or purulence expressed from surrounding areas. Granulation tissue forming at wound base. WWP Sensation globally decreased Able to fire EHL, FHL, AT, GSC Labs: BUN/Cr/glu/ALT/AST/amyl/lip: --/0.58/--/--/--/--/-- (10/09 06) A: Jeff Narvaez is a 58 y.o. that is s/p above. P: NWB RLE, AAT Ambulation SCDs for DVT prophylaxis Wound VAC machine ordered for wound VAC placement tomorrow morning Continue vancomycin, cefepime, metronidazole per ID recommendations Carb consistent diet PT recommending NICHOLE Multimodal pain control Disposition pending NICHOLE placement Rainer Cavazos MD 10/12/19 8:43 0826 * Ketty Nicole MD - 10/12/2019 0830 EDT Images from the original note were not included. Endocrine/Diabetes Follow Up/Progress Note Admit Date: 10/03/2019 Hospital day LOS: 8 days Date of Service: 10/12/2019 Reason for Following: T2DM with hyperglycemia Subjective: Pt is resting comfortably in bed, no complaints today, has a good appetite. Diabetes HX: Duration: Unknown Control: Currently poor Complications: Neuropathy, chronic R foot ulceration s/p 2nd and 3rd ray amputations Home Regimen: Non-compliant with glimepiride 4 mg PO BID, glargine 70 units daily, lispro 40 units w/ dinner, exenatide 2 mg SQ weekly Self Care, SBGM: Does not check BG regularly Regular Diabetes Provider: PCP ROS: Patient complains of: Polyuria Polydipsia Cramps/pain in feet Patient Denies: Fatigue Hypoglycemia Chest Pain Dyspnea/SOB Nausea/vomitting Diarrhea Constipation Objective/Physical Exam: VS: BP: 120/70 Pulse: 89 Heart Rate: 86 BPM Resp: 16 Temp: 35.8 ??C (96.4 ??F) SpO2: 96 % O2 Flow Rate (L/min): 0 l/min O2 Device: None FIO2 %: 98 % Weight: Weight : (!) 110.1 kg (242 lb 11.6 oz) Body mass index is 31.16 kg/m??. Food Intake: DIET CONSISTENT CARBOHYDRATE Activity:up with assistance Exam: Gen: Awake, alert, resting comfortably in bed Respiratory: Clear to auscultation bilaterally, no w/r/r Cardiovascular: RRR, no m/r/g Extremities: Pedal Pulses: Intact DP on L foot, R foot wrapped and unable to assess (photos 10/04/2019 reviewed) Gastrointestinal:: Soft, NTND, normoactive bowel sounds, no organomegaly or masses noted. Skin: Warm, dry; no skin ulcerations or breaks on L foot; dystrophic toenails on L Neurologic: Appears somewhat confused and having difficulty remembering details. Reported sensationto light touch L foot Data Review: Labs: 287 158 289 132 FBS 88 Lab Results Component Value Date HGBA1C 15.8 (H) 10/06/2019 Lab Results Component Value Date SERGLU 203 (H) 10/07/2019 NA 134 (L) 10/08/2019 K 3.1 (L) 10/08/2019 CL 94 (L) 10/08/2019 CO2 33 (H) 10/08/2019 BUN 6 (L) 10/08/2019 CREATININE 0.58 (L) 10/10/2019 CALCIUM 8.7 10/04/2019 Glucose - 269 (AM), 156, 107 Assessment/Plan: 58 y/o M with PMHx T2DM (poorly controlled), craniopharyngioma s/p resection (2006), chronic R foot diabetic ulceration s/p distal R 2nd toe amputation, hypothyroidism, memory impairment (unclear) who presented to [facility] 10/03/2019 with R foot pain over 1 week. Found to have R necrotic foot ulceration w/ osteomyelitis of second and third rays, s/p debridement, 2nd and 3rd ray amputations, transmetatarsal amputation. ?? Pt has T2DM of unknown duration which has been poorly controlled (Hgb A1c 15.8). He has been non-compliant with home medications and BG monitoring. Basal/bolus regimen is initiated and glargine increased to 55 units yesterday with aspart restarted at 15 units with meals. One spike in glucose middayand then at goal later. As glucose toxicity clears, will be more sensitive. Recommendations: - Continue glargine but dose decreased to 45 units due to lower FBS. - Decrease aspart 12 units TID with meals - Continue aspart SSI Continue FSBG ACHS Goal is 110-150 fasting and 120-180 other times. Ketty Nicole MD 10/12/2019 8:30 * Rainer Cavazos MD - 10/11/2019 0830 EDT Orthopaedic Progress Note Pt Name: Jeff Narvaez Problem: Right foot infection Procedure: Right TMA w/ Dr. Pham on 10/09/2019 24 Hr NAEO S- doing well today. No nausea vomiting or fever, chills. O: Blood pressure 138/79, pulse 89, temperature 36.3 ??C (97.4 ??F), temperature source Tympanic, resp. rate 16, height 188 cm (74), weight (!) 110.1 kg (242 lb 11.6 oz), SpO2 96 %. Focused MSK: RLE Wound at the dorsal aspect of the foot is healing well. There is well vascularized bleeding tissue.No evidence of purulence expressed from surrounding tissues. WWP Sensation globally decreased Able to fire EHL, FHL, AT, GSC Labs: BUN/Cr/glu/ALT/AST/amyl/lip: --/0.58/--/--/--/--/-- (10/09 06) A: Jeff Narvaez is a 58 y.o. that is s/p above. P: NWB RLE, AAT Ambulation SCDs for DVT prophylaxis Continue vancomycin, cefepime, metronidazole per ID recommendations Endocrinology consulted, appreciate recommendations Carb consistent diet PT recommending NICHOLE Multimodal pain troll Disposition pending NICHOLE placement Rainer Cavazos MD 10/11/19 8:30 0826 * Kala Roman DO - 10/11/2019 0751 EDT Endocrine/Diabetes Follow Up/Progress Note Admit Date: 10/03/2019 Hospital day LOS: 7 days Date of Service: 10/11/2019 Reason for Following: T2DM with hyperglycemia Subjective: Pt is resting comfortably in bed, no complaints today, has a good appetite. Diabetes HX: Duration: Unknown Control: Currently poor Complications: Neuropathy, chronic R foot ulceration s/p 2nd and 3rd ray amputations Home Regimen: Non-compliant with glimepiride 4 mg PO BID, glargine 70 units daily, lispro 40 units w/ dinner, exenatide 2 mg SQ weekly Self Care, SBGM: Does not check BG regularly Regular Diabetes Provider: PCP ROS: Patient complains of: Polyuria Polydipsia Cramps/pain in feet Patient Denies: Fatigue Hypoglycemia Chest Pain Dyspnea/SOB Nausea/vomitting Diarrhea Constipation Objective/Physical Exam: VS: BP: 138/79 Pulse: 89 Heart Rate: 86 BPM Resp: 16 Temp: 36.3 ??C (97.4 ??F) SpO2: 96 % O2 Flow Rate (L/min): 0 l/min O2 Device: None FIO2 %: 98 % Weight: Weight : (!) 110.1 kg (242 lb 11.6 oz) Body mass index is 31.16 kg/m??. Food Intake: DIET CONSISTENT CARBOHYDRATE Activity:up with assistance Exam: Gen: Awake, alert, resting comfortably in bed Respiratory: Clear to auscultation bilaterally, no w/r/r Cardiovascular: RRR, no m/r/g Extremities: Pedal Pulses: Intact DP on L foot, R foot wrapped and unable to assess (photos 10/04/2019 reviewed) Gastrointestinal:: Soft, NTND, normoactive bowel sounds, no organomegaly or masses noted. Skin: Warm, dry; no skin ulcerations or breaks on L foot; dystrophic toenails on L Neurologic: Appears somewhat confused and having difficulty remembering details. Reported sensationto light touch L foot Data Review: Labs: No results for input(s): GLUCOSEFINGE in the last 72 hours. Lab Results Component Value Date HGBA1C 15.8 (H) 10/06/2019 Lab Results Component Value Date SERGLU 203 (H) 10/07/2019 NA 134 (L) 10/08/2019 K 3.1 (L) 10/08/2019 CL 94 (L) 10/08/2019 CO2 33 (H) 10/08/2019 BUN 6 (L) 10/08/2019 CREATININE 0.58 (L) 10/10/2019 CALCIUM 8.7 10/04/2019 Glucose - 269 (AM), 156, 107 Assessment/Plan: 58 y/o M with PMHx T2DM (poorly controlled), craniopharyngioma s/p resection (2006), chronic R foot diabetic ulceration s/p distal R 2nd toe amputation, hypothyroidism, memory impairment (unclear) who presented to [facility] 10/03/2019 with R foot pain over 1 week. Found to have R necrotic foot ulceration w/ osteomyelitis of second and third rays, s/p debridement, 2nd and 3rd ray amputations, transmetatarsal amputation. ?? Pt has T2DM of unknown duration which has been poorly controlled (Hgb A1c 15.8). He has been non-compliant with home medications and BG monitoring. Basal/bolus regimen is initiated and glargine increased to 55 units yesterday with aspart restarted at 15 units with meals. BG trended higher yesterdaybecause aspart order was discontinued not restarted once patient was eating but he did get aspart for lunch and dinner and BG trended down nicely. Fasting BG is 128 this morning, HS is 287 but patient got 5 units from scale, so difficult to know true fasting blood sugar. Will keep current doses andhave discontinued bedtime scale. Recommendations: - Continue glargine 55 units - Continue aspart 15 units TID with meals - Continue aspart SSI Continue FSBG ACHS Kala Roman DO 10/11/2019 7:51 Cosigned by Ketty Nicole MD at 10/11/2019 11:45 EDT Associated attestation - Ketty Nicole MD PhD - 10/11/2019 1145 EDT Attestation: I saw and examined the patient with the resident/fellow 10/11/2019. I agree with the findings and plan of care documented in the resident's/fellow's note. Ketty Nicole MD 10/11/2019 11:45 * Elizabeth Costello - 10/10/2019 1611 EDT Follow-up visit with patient today for diabetes nutrition education. He is extremely happy with the care he has received here, wishes he hadn't needed to have an amputation, but is looking forward to improved health after discharge. Today we talked more about high carb vs low carb foods. Mostly spoke about this in relation to specific foods that patient eats regularly, rather than as broad categories of food. Will need ongoing education in this area, at last visit reported thinking salty foods were high in sugar, today reportsthat he'd got in in his head that cheese was sugary. Patient initiated a discussion of the difference between sugar and carbohydrate, now you keep saying carbs, what is that? He also noted that he drinks no-sugar Gatorade and Powerade, but wanted to be sure that there wasn't something else in there that is bad for his diabetes. -Encouraged him to stick with one 12-oz glass of white milk in the evening, not three or four. -He drinks a 20-oz bottle of chocolate milk about 3 times per week, discussed that this is over 60 grams of carbs each time, or about as many carbohydrate as he would get from a full meal. Encouragedhim to substitute something else for the chocolate milk. He is going to do mixed nuts instead (warned against honey roasted nuts, or nuts with raisins/chocolates added). -Encouraged him to cut back on snacking on cheese crackers. On RD's advice at initial interview, hehas been snacking on [place] cheddar while admitted, suggested that he could continue this at home instead of doing so many cheese crackers. -He has been having hypoglycemic reactions more often over the past few months (goes by symptoms, hasn't been checking glucose levels). Today he notes that these have come on days that he skipped breakfast. Told him he cannot skip breakfast while on diabetes meds, we reviewed that an overnight fastfollowed by skipping breakfast adds up to a long time without eating. -Discussed that breakfast of cereal & milk, banana, and toast with peanut butter is too high incarbs. Could do cereal & banana, or toast/PB, but not both. He sometimes has just eggs for breakfast, reviewed that he should actually add a carbohydrate food to this meal, otherwise might have hypoglycemia later since eggs are very low in carbs. Provided him with a list of of high carb and low carb food groups, he plans to put this either on his desk at home next to his meds, or on his refrigerator door. Will continue to provide education while he is admitted; his memory problems make education challenging, but doable. In summary: -substitute unsweetened peanuts/cashews for chocolate milk -reduce white milk to only one glass/day, not 3 or 4 -fewer cheese crackers, more cheese -no skipping breakfast! -if having eggs for breakfast, needs to also have toast or other carb source -cereal/fruit/toast is too many carbs at once for breakfast, do either cereal/fruit, or toast/PB Please include referral for outpatient nutrition counseling at discharge. KAUSHAL Ruffin 6 pager number: [phone] * Francine Cheek LICSW - 10/10/2019 6379 EDT SW/CM Progress Note: Pt was evaluated by PT and recommendation is NICHOLE. Spoke with pt's Nguyen (P: [phone]) to discuss options. She would like to look in [facility] and [facility]. Referral sent. She will follow-up with preferences after taking some time to research the facilities[place] Ext [phone] Pager #[phone] * Morris Parsons, PT - 10/10/2019 1125 EDT [facility] Rehabilitation Therapy Acute Therapies [facility] Physical Therapy Encounter Note Date of Service: 10/10/2019 Subjective/Objective SUBJECTIVE: My foot really hurts. (right) OBJECTIVE: Intervention completed today: Time: 1035 Total treatment time: 25 minutes Timed code treatment minutes: 25 minutes Activity as tolerated, non weight bearing right lower extremity - same as pre-op Copied from Podiatry note 10/09/19 Brief Post-Op Note?? Pre-Op Diagnosis: Right foot abscess, gangrene Procedure(s): Right foot transmetatarsal amputation Plan: -Non weight bearing to right foot. -Elevate right foot. Vital Signs: Activity Heart rate (bpm) Blood Pressure (mmHg) Oxygen Sat/ Fractions of inspired Oxygen SPO2/FIO2 % Pre - Supine 88 bpm 123/81 96% on room air Post - Supine 87 bpm 139/76 98% on room air Therapeutic activities Non weight bearing right lower extremity Bed mobility training - supine to sit to the right with the head of bed up 30 degrees and no use ofthe rail and minimal contact assist of 1 for his right lower extremity - sit to supine to the rightwith the head of bed up 30 degrees and no use of the rail and minimal contact assist of 1 for his right lower extremity - cues needed for technique Transfer training - sit to stand from the bed and stand to sit to the bed with the rolling walker and minimal contact assist of 1 - done multiple times - he was able to take a few hops to the right to move up towards the head of the bed with the rolling walker and minimal contact assist of 1 - he did well maintaining the non weight bearing status of his right lower extremity - bed to the reclinertransfer not done as the patient wanted to be in bed at the end of the physical therapy session to elevate his right lower extremity - cues needed for technique, hand placement, and sequencing Ambulation training - not evaluated due to increased right lower extremity discomfort Therapeutic exercises were reinforced and the patient was provided with cues to facilitate improvedtechnique/proper performance in order to optimize outcome. Right lower extremity Supine - active assisted x 5 repetitions with assist and cues Hip flexion Hip abduction Knee extension The patient was in bed with the call larson in reach at the end of the physical therapy session. Patient/Family Education: Topic: Bed mobility Transfers Activity pacing/Energy conservation Exercise Precautions/protocol Assistive device/technique Equipment use Role of therapy Safety Discharge planning Learner: patient Method: verbal Barriers to Learning: cognitive deficits Outcome: needs practice Team Communication: The patient's status was discussed with the patient's nurse before and after the physical therapy session. I recommend one person to assist the patient with transfers with the rolling walker and non weight bearing on his right lower extremity throughout the day. Assessment/Plan ASSESSMENT: This patient was able to participate in exercises, bed mobility, and transfer training today. He was able to maintain the non weight bearing status of his right lower extremity. He continues to need physical assist for functional activities. His current functional status is about the same as his pre-operative functional status. I continue to support subacute rehabilitation to assist him in regaining as much functional independence as possible. The goals set during his physical therapy initial evaluation remain current. PLAN: Continue per plan of care Recommended Discharge Destination: Sub-acute rehabilitation Recommended Discharge Services: Physical therapy at rehabilitation facility Recommended Equipment Needs: To be determined by next care provider Other recommendations: No other consults recommended at this time MORRIS PARSONS PT 10/10/2019 8:46 [id number] * Marija Bajwa MD - 10/10/2019 0808 EDT Endocrine/Diabetes Follow Up/Progress Note Admit Date: 10/03/2019 Hospital day LOS: 6 days Date of Service: 10/10/2019 Reason for Following: T2DM with hyperglycemia Subjective: Pt was seen and examined at bedside, resting comfortably. He reports pain in his foot 5-7/10 severity following surgery. Following surgery pt has been eating well. Pt denies other complaints at this time, including f/c, n/v, CP, SOB, abdominal pain. Diabetes HX: Duration: Unknown Control: Currently poor Complications: Neuropathy, chronic R foot ulceration s/p 2nd and 3rd ray amputations Home Regimen: Non-compliant with glimepiride 4 mg PO BID, glargine 70 units daily, lispro 40 units w/ dinner, exenatide 2 mg SQ weekly Self Care, SBGM: Does not check BG regularly Regular Diabetes Provider: PCP ROS: Patient complains of: Polyuria Polydipsia Cramps/pain in feet Patient Denies: Fatigue Hypoglycemia Chest Pain Dyspnea/SOB Nausea/vomitting Diarrhea Constipation Objective/Physical Exam: VS: BP: 135/83 Pulse: 89 Heart Rate: 72 BPM Resp: 18 Temp: 36.1 ??C (96.9 ??F) SpO2: 96 % O2 Flow Rate (L/min): 0 l/min O2 Device: None FIO2 %: 98 % Weight: Weight : (!) 110.1 kg (242 lb 11.6 oz) Body mass index is 31.16 kg/m??. Food Intake: DIET CONSISTENT CARBOHYDRATE Activity:up with assistance Exam: Gen: Awake, alert, resting comfortably in bed Respiratory: Clear to auscultation bilaterally, no w/r/r Cardiovascular: RRR, no m/r/g Extremities: Pedal Pulses: Intact DP on L foot, R foot wrapped and unable to assess (photos 10/04/2019 reviewed) Gastrointestinal:: Soft, NTND, normoactive bowel sounds, no organomegaly or masses noted. Skin: Warm, dry; no skin ulcerations or breaks on L foot; dystrophic toenails on L Neurologic: Appears somewhat confused and having difficulty remembering details. Reported sensationto light touch L foot Data Review: Labs: No results for input(s): GLUCOSEFINGE in the last 72 hours. Lab Results Component Value Date HGBA1C 15.8 (H) 10/06/2019 Lab Results Component Value Date SERGLU 203 (H) 10/07/2019 NA 134 (L) 10/08/2019 K 3.1 (L) 10/08/2019 CL 94 (L) 10/08/2019 CO2 33 (H) 10/08/2019 BUN 6 (L) 10/08/2019 CREATININE 0.58 (L) 10/10/2019 CALCIUM 8.7 10/04/2019 Glucose - 269 (AM), 156, 107 Assessment/Plan: 58 y/o M with PMHx T2DM (poorly controlled), craniopharyngioma s/p resection (2006), chronic R foot diabetic ulceration s/p distal R 2nd toe amputation, hypothyroidism, memory impairment (unclear) who presented to [facility] 10/03/2019 with R foot pain over 1 week. Found to have R necrotic foot ulceration w/ osteomyelitis of second and third rays, s/p debridement, 2nd and 3rd ray amputations, transmetatarsal amputation. ?? Pt has T2DM of unknown duration which has been poorly controlled (Hgb A1c 15.8). He has been non-compliant with home medications and BG monitoring. Primary team initiated insulin regimen of glargine and aspart with meals. BG continues to be elevated, and we recommend increasing glargine dose further from 45 to 55 units daily as well as re-starting aspart 15 units TID with meals. We will continue to monitor BG levels. Recommendations: - Increase glargine to 55 units SQ daily - We have placed the order - Restart aspart at 15 units SQ TID with meals - We have placed the order - Continue to monitor FSBG and titrate as needed - Optimize home regimen prior to discharge and ensure plan is in place to encourage compliance MARIJA BAJWA MD 10/10/2019 8:09 Cosigned by Ketty Nicole MD at 10/10/2019 12:21 EDT Associated attestation - Ketty Nicole MD PhD - 10/10/2019 1221 EDT Attestation: I saw and examined the patient with the resident/fellow 10/10/2019. I agree with the findings and plan of care documented in the resident's/fellow's note. Hard to know if he is able to adhere to insulin regimen with multiple shots, and multiple shots are needed for wound healing and to reverse glucose toxicity for now. Ketty Nicole MD 10/10/2019 12:20 * Rainer Cavazos MD - 10/10/2019 0626 EDT Orthopaedic Progress Note Pt Name: Jeff Narvaez Problem: Right foot infection Procedure: Right TMA w/ Dr. Pham on 10/09/2019 24 Hr OR for above S- doing okay this morning. Having some tenderness of the foot. Was able to sleep well overnight. Otherwise denies nausea vomiting fevers, chills. O: Blood pressure 135/83, pulse 89, temperature 36.1 ??C (96.9 ??F), temperature source Tympanic, resp. rate 18, height 188 cm (74), weight (!) 110.1 kg (242 lb 11.6 oz), SpO2 96 %. Focused MSK: RLE Well vascularized tissue at the distal dorsal aspect of the right foot. No evidence of purulence expressed from surrounding areas. WWP Sensation globally decreased Able to fire AT, GSC, ham Labs: WBC/Hgb/Hct/Plts: 7.35/12.1/35.3/311 (10/07 624) Na/K/Cl/CO2: 134/3.1/94/33 (10/07 624) BUN/Cr/glu/ALT/AST/amyl/lip: 6/0.59/--/--/--/--/-- (10/07 624) PT/INR/PTT: 16.8/1.4/-- (10/07 825) A: Jeff Narvaez is a 58 y.o. that is s/p above. P: NWB RLE, AAT Ambulation SCDs for DVT prophylaxis Continue vent, cefepime, metronidazole per ID recommendations Endocrinology consulted, appreciate recommendations Carb consistent diet PT eval for postop mobilization Multimodal pain control Disposition pending Rainer Cavazos MD 10/10/19 6:26 0826 Cosigned by Angelina Gonzales DPM at 10/10/2019 7:51 EDT Associated attestation - Agnelina Gonzales DPM - 10/10/2019 0751 EDT Attestation statement: I saw and examined the patient with the resident/fellow. I agree with the findings and plan of care documented in the resident's/fellow's note. Dressing changed today. Incision well coapted plantar centrally. Plantar flap viable. Open wound dorsally with exposed tendon. No purulence or probing. Will continue to closely monitor dorsal wound over the weekend for any signs of residual infection as well as viability or plantar flap. Possible wound VAC re- application next week. * Raman Cary MD - 10/09/2019 7816 EDT Ortho Post Op Check: S-Doing well O-Minimal strikethrough distally A-Normal postop course P- Continue plan Grady Cary MD Orthopedic Surgery PGY3 4:47 10/10/19 [id number] * Bhakti Montalvo RPH - 10/09/2019 1034 EDT Pharmacy Note: Vancomycin Monitoring Jeff Narvaez is a 58 y.o. male receiving Vancomycin 1750 mg IV q12h for the treatment of osteomyelitis. Other antibiotics include: cefepime, metronidazole. Vancomycin steady state trough level drawn prior to the AM dose on 10/08 = 13.1 mcg/ml. Assessment and Plan: 1). Vancomycin level is approximately within the reference range (goal ~15 mcg/ml) 2). Given anticipated 6 week course of IV antibiotic therapy & risk for accumulation will continue current dose for now. 3) Pharmacy will recheck level in 3-4 days to assess for accumulation. 4). Continue to monitor renal function, CBC, In/Out, Tm Pharmacy will continue to follow BHAKTI Aguirre RPH Pager [employer] * Marija Bajwa MD - 10/09/2019 0829 EDT Endocrine/Diabetes Follow Up/Progress Note Admit Date: 10/03/2019 Hospital day LOS: 5 days Date of Service: 10/09/2019 Reason for Following: T2DM with hyperglycemia Subjective: Pt was seen and examined at bedside, resting comfortably. He states he is feeling well this morningbut is experiencing 6-7/10 pain in his R foot that is somewhat alleviated with pain medications. Ptreporting feelings of intense thirst but remains NPO for OR today. He also describes feeling emotional and overwhelmed with his current situation. Pt denies other complaints at this time, including f/c, n/v, CP, SOB, abdominal pain. Diabetes HX: Duration: Unknown Control: Currently poor Complications: Neuropathy, chronic R foot ulceration s/p 2nd and 3rd ray amputations Home Regimen: Non-compliant with glimepiride 4 mg PO BID, glargine 70 units daily, lispro 40 units w/ dinner, exenatide 2 mg SQ weekly Self Care, SBGM: Does not check BG regularly Regular Diabetes Provider: PCP ROS: Patient complains of: Polyuria Polydipsia Cramps/pain in feet Patient Denies: Fatigue Hypoglycemia Chest Pain Dyspnea/SOB Nausea/vomitting Diarrhea Constipation Objective/Physical Exam: VS: BP: 123/47 Pulse: 89 Heart Rate: 85 BPM Resp: 18 Temp: 35.6 ??C (96.1 ??F) SpO2: 99 % O2 Flow Rate (L/min): 0 l/min O2 Device: None FIO2 %: 98 % Weight: Weight : (!) 110.1 kg (242 lb 11.6 oz) Body mass index is 31.16 kg/m??. Food Intake: DIET NPO AFTER MIDNIGHT Activity:up with assistance Exam: Gen: Awake, alert, resting comfortably in bed Respiratory: Clear to auscultation bilaterally, no w/r/r Cardiovascular: RRR, no m/r/g Extremities: Pedal Pulses: Intact DP on L foot, R foot wrapped and unable to assess (photos 10/04/2019 reviewed) Gastrointestinal:: Soft, NTND, normoactive bowel sounds, no organomegaly or masses noted. Skin: Warm, dry; no skin ulcerations or breaks on L foot; dystrophic toenails on L Neurologic: Appears somewhat confused and having difficulty remembering details. Reported sensationto light touch L foot Data Review: Labs: No results for input(s): GLUCOSEFINGE in the last 72 hours. Lab Results Component Value Date HGBA1C 15.8 (H) 10/06/2019 Lab Results Component Value Date SERGLU 203 (H) 10/07/2019 NA 134 (L) 10/08/2019 K 3.1 (L) 10/08/2019 CL 94 (L) 10/08/2019 CO2 33 (H) 10/08/2019 BUN 6 (L) 10/08/2019 CREATININE 0.59 (L) 10/08/2019 CALCIUM 8.7 10/04/2019 Glucose - 163 (9am) 202 (6am), 278, 242 Assessment/Plan: 58 y/o M with PMHx T2DM (poorly controlled), craniopharyngioma s/p resection (2006), chronic R foot diabetic ulceration s/p distal R 2nd toe amputation, hypothyroidism, memory impairment (unclear) who presented to [facility] 10/03/2019 with R foot pain over 1 week. Found to have R necrotic foot ulceration w/ osteomyelitis of second and third rays, s/p debridement, 2nd and 3rd ray amputations scheduled for OR today 10/09/2019 for transmetatarsal amputation. ?? Pt has T2DM of unknown duration which has been poorly controlled (Hgb A1c 15.8). He has been non-compliant with home medications and BG monitoring. Primary team initiated insulin regimen of glargine 35 units daily, aspart 8 units with meals, which was increased to glargine 45 units and aspart 15 units with meals on 10/08/2019. As pt is NPO for OR today and his BG has been responding to current insulin regimen, we recommend maintaining current doses at this time. We will continue to monitor BG levels. Recommendations: - C/w glargine 45 units daily - C/w aspart 15 units with meals - Continue to monitor FSBG and titrate as needed - Optimize home regimen prior to discharge and ensure plan is in place to encourage compliance MARIJA BAJWA MD 10/09/2019 8:29 Cosigned by Ketty Nicole MD at 10/09/2019 14:39 EDT Associated attestation - Ketty Nicole MD PhD - 10/09/2019 1439 EDT Attestation: I saw and examined the patient with the resident/fellow 10/09/2019. I agree with the findings and plan of care documented in the resident's/fellow's note. Ketty Nicole MD 10/09/2019 14:39 * Rainer Cavazos MD - 10/09/2019 0802 EDT Orthopaedic Progress Note Pt Name: Jeff Narvaez Problem:??Right necrotic diabetic foot ulceration with osteomyelitis of the second and third rays Procedure:??Irrigation debridement of the right foot, second and third ray amputation, wound VAC application??w/ Dr. Ramirez??on 10/05/2019 24 Hr NAEO S- doing well today. No nausea or vomiting. No chills. Ready for OR. O: Blood pressure 123/47, pulse 89, temperature 35.6 ??C (96.1 ??F), temperature source Tympanic, resp. rate 18, height 188 cm (74), weight (!) 110.1 kg (242 lb 11.6 oz), SpO2 99 %. Focused MSK: RLE Wound is healing well. Dressing replaced with wet-to-dry dressing. WWP Sensation globally decreased Able to fire EHL, FHL, AT, GSC Labs: WBC/Hgb/Hct/Plts: 7.35/12.1/35.3/311 (10/07 624) Na/K/Cl/CO2: 134/3.1/94/33 (10/07 624) BUN/Cr/glu/ALT/AST/amyl/lip: 6/0.59/--/--/--/--/-- (10/07 624) PT/INR/PTT: 16.8/1.4/-- (10/07 825) A: Jeff Narvaez is a 58 y.o. that is s/p above. P: NWB RLE, AAT Plan for TMA today with Dr. Gonzales Ambulation, SCDs for DVT prophylaxis Continue Vanco, cefepime, metronidazole per ID recommendations Endocrinology consulted, appreciate recommendations N.p.o. for OR PT eval for postop mobilization Multimodal pain control Disposition pending Rainer Cavazos MD 10/09/19 8:02 0826 Cosigned by Angelina Gonzales DPM at 10/09/2019 8:27 EDT Associated attestation - Angelina Gonzales DPM - 10/09/2019 0827 EDT Saw Mr. Narvaez at bedside this am to review plan for surgery today and answer any questions. He was understandably anxious for surgery/hospitalization. All questions answered. Will also discuss with his , Nguyen, today. * Zuly Hatch, PT - 10/09/2019 0712 EDT [facility] Rehabilitation Therapy Acute Therapy [facility] Physical Therapy Contact Note Date of Service: 10/09/2019 Scheduled for transmet amputation today. PT will follow up tomorrow. ZULY HATCH, PT 10/09/2019 7:13 * Elizabeth Costello - 10/08/2019 1606 EDT Brief Nutrition note Attempted to see for follow-up nutrition diabetes education; was on bedpan at first attempt, sleeping at next two attempts. Will try again later this week. Reviewed his meal orders over past 48 hoursand he has continued to order [place] cheese and hard-cooked egg as low carb snacks per our discussion on Sunday, however is also ordering a fair amount of high-carb foods such as pancakes, honey nut cheerios, chocolate milk, cookies, etc. Remains on Consistent Carb diet. KAUSHAL Ruffin 6 pager number: [phone] * Rainer Cavazos MD - 10/08/2019 0724 EDT Orthopaedic Progress Note Pt Name: Jeff Narvaez Problem:??Right necrotic diabetic foot ulceration with osteomyelitis of the second and third rays Procedure:??Irrigation debridement of the right foot, second and third ray amputation, wound VAC application??w/ Dr. Ramirez??on 10/05/2019 24 Hr NAEO S- doing well this morning. Tolerated wound VAC change. Is aware surgery tomorrow. Consents reviewed and signed today. O: Blood pressure 136/67, pulse 89, temperature 36.6 ??C (97.9 ??F), temperature source Tympanic, resp. rate 18, height 188 cm (74), weight (!) 110.1 kg (242 lb 11.6 oz), SpO2 92 %. Focused MSK: RLE Wound base healing well. No purulence or drainage at this time. WWP Sensation globally decreased Able to fire AT, GSC Labs: WBC/Hgb/Hct/Plts: 7.35/12.1/35.3/311 (10/07 624) Na/K/Cl/CO2: 134/3.1/94/33 (10/07 624) BUN/Cr/glu/ALT/AST/amyl/lip: 6/0.59/--/--/--/--/-- (10/07 624) A: Jeff Narvaez is a 58 y.o. that is s/p above. P: NWB RLE, AAT Plan for TMA tomorrow with Dr. Gonzales Ambulation, SCDs for DVT prophylaxis Continue pain, cefepime, and metronidazole per ID recommendations Endocrinology consulted, appreciate recommendations Carb consistent diet PT eval for postop mobilization Multimodal pain control Disposition pending Rainer Cavazos MD 10/08/19 7:24 0826 * Lauren Vazquez, RN - 10/07/2019 1701 EDT Diabetes Nurse Clinician met with Jeff again today for a meter teach and review his basic conceptsof diabetes education. Jeff will continue to need layered on education while he is hospitalized. Nursing to encourage hi to self inject and do BG checking. Lauren LITTLEJOHN swaging machine operator Nurse Clinician#[id number] * Shelly Garcia, PT - 10/07/2019 1516 EDT [facility] Rehabilitation Therapy Acute Therapies [facility] Physical Therapy Encounter Note Date of Service: 10/07/2019 Subjective/Objective Subjective I just feel like I can't do much today. Objective Intervention completed today: Time: 1400 Total treatment time: 25 minutes. Timed code treatment minutes: 25 Vital signs were monitored and were stable throughout physical therapy session. Therapeutic Activity: Sit<>supine independently. Sit<> stand x 4 with min contact assist to RW. Appears to have increased difficulty maintaining NWB on RLE throughout. Cues for sequencing and walker management. Seated rest between attempts while demonstrating appropriate technique. Step by step cues and demonstration given to show hop to gait pattern with use of RW. Patient verbalized understanding but declined trial at this time due to fatigue and pain. Agreeable to perform bed<>chair with nursing staff later today. Patient supine in bed with call larson in hand. Patient/Family Education: Topic: Activity pacing/Energy conservation Assistive device/technique Balance Bed mobility Discharge planning Equipment use Exercise Gait Role of therapy Safety Transfers Learner: patient Method: verbal and demonstration Barriers to Learning: cognitive deficits Outcome: requires assist and needs practice Team Communication: Consulted with RN before and after treatment with regards to patient status. Assessment/Plan Assessment Patient continues to require assist x1 for OOB mobility with increased difficulty maintaining NWB on RLE today. At this time, recommend NICHOLE to facilitate maximal functional outcome. Plan Continue per plan of care Recommended Discharge Destination: Sub-acute rehabilitation Recommended Discharge Services: Physical therapy at rehabilitation facility Recommended Equipment Needs: To be determined by next care provider Other recommendations: No other consults recommended at this time Pager: [phone] Shelly Garcia, PT 10/07/2019 15:17 * Rainer Cavazos MD - 10/07/2019 0610 EDT Orthopaedic Progress Note Pt Name: Jeff Narvaez Problem: Right necrotic diabetic foot ulceration with osteomyelitis of the second and third rays Procedure: Irrigation debridement of the right foot, second and third ray amputation, wound VAC application w/ Dr. Ramirez on 10/05/2019 24 Hr NAEO S- doing okay this morning. No complaints. No nausea, vomiting fevers, chills. O: Blood pressure 131/77, pulse 89, temperature 36.6 ??C (97.8 ??F), temperature source Tympanic, resp. rate 18, height 188 cm (74), weight (!) 110.1 kg (242 lb 11.6 oz), SpO2 92 %. Focused MSK: RLE Wound VAC removed, exposed bone at the proximal aspect of the wound, bleeding tissue noted. Surrounding tissue is macerated. WWP Sensation decreased globally Able to fire AT, GSC, Labs: WBC/Hgb/Hct/Plts: 13.80, 13.80/11.3, 11.3/32.7, 32.7/294, 294 (10/05 0754) Na/K/Cl/CO2: 131/3.0/94/30 (10/05 0754) BUN/Cr/glu/ALT/AST/amyl/lip: 6/0.51/--/--/--/--/-- (10/05 0754) PT/INR/PTT: --/--/28 (10/03 1431) A: Jeff Narvaez is a 58 y.o. that is s/p above. P: NWB RLE, AAT Dr. Gonzales to see this morning and determine whether or not wound VAC will be replaced. Ambulation SCDs for DVT prophylaxis Antibiotics with vancomycin, Flagyl, cefepime Carb consistent diet PT eval for mobilization Multimodal pain control Disposition pending Rainer Cavazos MD 10/07/19 6:10 0826 Cosigned by Angelina Gonzales DPM at 10/07/2019 7:51 EDT Associated attestation - Angelina Gonzales DPM - 10/07/2019 0751 EDT Saw Mr. Narvaez at bedside this am. Discussed with Dr. Cavazos. Status post 2nd and 3rd ray amputations,open. Metatarsal bases still intact 2nd and 3rd. Exposed. Granular wound base.Mild maceration. No purulence. No pain on probing. Mr. Narvaez reports pain improved from admission. Likely back to OR later this week for a transmetatarsal amputation. Will obtain new foot xrays today for surgical planning purposes. Discussed that he may still require a wound VAC post operatively, depending on soft tissues intra operatively- may be left open. Discussed that he is at risk of more proximal amputation given amount of bone and tissue loss with infection and his poorly controlled diabetes. Continue with daily wet to dry dressings. Will also obtain endocrine and infectious disease consults today. * Mynor Cox MD - 10/06/2019 1920 EDT Medicine Progress Note Service Date: 10/06/2019 Admit Date: 10/03/2019 20:59 Reason for Admission: 58 y.o. male admitted with a chief complaint of diabetic foot infection 24 Hour Events: none Subjective/Objective Subjective Feeling OK. No pain in foot. Not sure how its going. Tells me he is super hungry and could eat morethan they are bringing him. Struggles to recall people he has seen today and what he had for meals and snacks. NO fever, SOB, CP, ABD pain. NO other questions. Review of Systems See above Objective Vital Signs Temp: [35.6 ??C (96.1 ??F)-36.8 ??C (98.2 ??F)] , Heart Rate: [94 BPM-97 BPM] , Resp: [17] , BP: (110-134)/(67-75) , SpO2: [95 %-98 %] Physical Exam NAD, AOx3 Anicteric Lungs clear Heart reg ABD ND No lower leg edema Right foot s/p amputations - wound vac in place No scanlon No rashes noted Medications Reviewed: No changes Labs Reviewed: Results notable for hyperglycemia, HgbA1c alomsot 16%. Imaging Reviewed: No new imaging. Assessment/Plan Assessment Jeff Narvaez is a 58 y.o. male h/o craniopharyngioma resection (2006) c/b memory and balance deficits, poorly controlled DM2 (A1c 15 September 2018) c/b neuropathy, and chronic diabetic foot ulcer on right foot with amputation of distal right second toe p/w right foot pain. Concern for aggressive tissue infection and osteomyelitis. He has poorly controlled diabetes with an A1c of almost 16%. Plan # Diabetic foot infection - per ortho - consider ID consult # Uncontrolled diabetes - A1c 16% now with ulcers requiring surgery - would consult endocrine for options at home in this gentleman with memory impairment from his craniopharygioma resection - cont lantus, add scheduled aspart 8 units with meals (done) and add bedtime insulin PRN + SSI D/w primary team Mynor Cox MD 10/06/2019 19:20 * Armin Arzate - 10/06/2019 1737 EDT Initial Case Management/Social Work Assessment and Discharge Plan/Readmission Risk Assessment REASON FOR ADMISSION: Osteomyelitis ([facility]) Patient understands reason for admission: Yes PATIENT CONTACT INFO VERIFIED: Yes PATIENT ADDRESS VERIFIED: Yes Type of housing (single family, condo, apartment, snf, single room occupancy, [facility] funded hotel room, group jail) - single family Who does the patient live with? spouse Does the patient have access to their own bedroom/bathroom/kitchen - or is it shared with others? Shares with spouse Name of housing complex (ex [facility], [facility], etc)- n/a Housing Authority/Managing Organization - n/a Community Care Providers (residential case manager, [facility] nurse, etc) name and contact information- n/a LIVING ARRANGEMENTS AND ACCESSIBILITY ISSUES: Living Arrangements: Spouse / significant other, Private residence Levels: 1 Stairs to enter: 4 or more(Patient tells 6-8 stairs at front door no railing. 10-14 stairs at garage entrance with railings) Handicap access: None Bathroom located on bedroom level?: Yes What in home social supports are available to the patient? Spouse / significant other Is 24/7 care available? NA ADVANCED DIRECTIVES, POA &/or COLST IN PLACE: Healthcare Directive: Yes, patient has advance directive for healthcare treatment Type of Healthcare Directive: Durable power of deputy attorney general for health care Copy in Chart: No, copy requested from family Information Provided on Healthcare Directives: No Information on Healthcare Directives Requested: No DIRECTIVES FOR FINANCES: Directive For Finances: No TRANSPORTATION: Transportation: Self, Family CULTURAL, RESTORATION and/or LANGUAGE factors affecting health care/discharge planning: Spiritual/Cultural Requests: None Any factors affecting health care/discharge planning?: No Insurance in Place: Yes Medical Insurance: Yes Type of insurance: Commercial insurance, Medicare Medicare type: A, B Commercial coverage: BC/BS Referred to patient financial services: No Nutrition: regular diet DISCHARGE RISK ASSESSMENT: Cognitive impairment;Acute/chronic wound or pressure ulcer;Diagnosis of Diabetes Total # selected above: Score of 2 - 4: This patient is at MODERATE RISK for re-hospitalization Tentative plan to address the risk of re-hospitalization for those at HIGH MODERATE RISK: Early inpatient rehab therapy or other consultation(s) RAPT TOOL: Age: 50-65 Gender: Male Ambulation distance: 2 or more blocks (600ft) Gait device: None Community Services: Home health, [facility], [facility]-none of one time a week Will you live with someone who will care for you?: Yes RAPT Tool Score: 12 Patient expects to be discharged to: home with home health SBIRT: SASQ (Single Alcohol Screening Question) How many times in the past year have you had 5 or more drinks in a single day?: Never How many times in the past year have you used an illegal drug or used a prescription medication fornon-medical reasons?: Never Intervention in place/initiated?: No, not indicated FUNCTIONAL STATUS: Activities patient requires assistance: Bathing, Mobility Assistive Device: Front wheel walker COMMUNITY RESOURCES/SUPPORTS: Primary Care Provider: Karishma Batres PCP Verified: Yes Specialists: Other(Dr. Glenys Gonzales for podiatry) Type of Home Health Services: None DME Provider: not at this time Pharmacy: [id number] - [place], [place] - [address] [place] [address] [place] [address] [id number] [place] [address] [address] [place] [address] Home Health: Not at this time Other: POST HOSPITAL TRANSITION PLAN: Pending clinical course, PT eval. Patient POD 1 amputation of two toes and debridement on R diabetic foot wound. 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 Patient's called RN and requested CM call, this writercannot call today. Patient has two adult sons who live and work in [place] and [place]. Patient marielleis will transport patient home if home is discharge destination. ARMIN ARZATE 10/06/2019 17:37 * Lauren Vazquez RN - 10/06/2019 1402 EDT Diabetes Nurse Clinician met with Mr Narvaez for review of SDM. Current A1C 15.9 EAG= 410. 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 Lives with his Nguyen in [facility]. SMBG: does not check very often, maybe once a month. Open to new meter. Medications: Amaryl BID Bydureon 2mg once a week Basaglar 70 units every evening and Humalog 40 units with dinner (per chart). Jeff tells me I take once a week injecting pen that is jackson and green and two other insulins at dinnertime and a pill. Diabetes Provider: PCP Jeff has trouble with word finding at times. Remembering names is extremely difficult at times andhe finds this very frustrating and embarrassing. We reviewed SDM he tells me that he has never (when he has check had low BG)Tells me his meter doesn't work well, is appreciative of a new meter whichI will bring to him tomorrow provide a teach and reminder sheet for him to check BG before he takeshis insulin. He feels that this will help him to remember as he tells me he gets sidetracked muchof the time. BG checking will be very important for Jeff to understand where he is at for wound healing and glucose management moving forward. Would recommend for assistance with med management and BG checking for D/C planning. Would highly recommend an endocrine consult for review of current medications. Lauren LITTLEJOHN swaging machine operator Nurse Clinician #[id number] * Shelly Garcia, PT - 10/06/2019 1044 EDT [facility] Rehabilitation Therapy Acute Therapy [facility] Physical Therapy Initial Evaluation Note Date of Service: 10/06/2019 Reason for Referral: Evaluate and treat Mobility Precautions Activity: Activity as tolerated(NWB RLE) SUBJECTIVE: Subjective Information Reported by: Patient Reporting Person Comment: I had a brain tumor so I just need you to go slowly when you are explaining things. Pain Evaluation Select Specific Pain Scale: Numeric Numeric Pain Scale Numeric Pain Level (Scale 1-10): 4 Primary Pain Site Assessment Pain Location: Foot Pain Orientation : Right Pain Aggravating Factors: Movement Pain Alleviating Factors: Rest, Pain medications OBJECTIVE: PatientProfile: Patient is a 58 y.o. male admitted on 10/03/2019 secondary to Osteomyelitis ([facility]) [M86.9] Diabetic foot infection ([facility]) [E11.628, L08.9] Osteomyelitis, unspecified site, unspecified type ([facility]) [M86.9] The patient lives at [address] [place] [id number] Safety Assessment / Living Environment Home environment: House Basic Home Layout Home layout: One level Entrance Stairs: Stairs to enter without rails # of Steps to Enter: 8 Bedrooms/Bathrooms: Bath upstairs Home Equipment: None Support Support Person: Spouse Amount of Support: 24 hour assist Living Arrangement Lives With: Spouse General Prior Level of Function Comment: Independent without use of DME Level of Assistance Throughout: Independent Medical/Surgical History: Current: Patient Active Problem List [...] colon ??? Diabetic foot infection (HCC-CMS) ??? Osteomyelitis (HCC-CMS) ??? Osteomyelitis, unspecified site, unspecified type (HCC-CMS) Past: Past Medical History: Diagnosis Date ??? Arthritis ??? Back pain ??? Diabetes mellitus (HCC-CMS) ??? Hypothyroidism ??? Wears glasses Past Surgical History: Procedure Laterality Date ??? BRAIN SURGERY s/p tumor ??? EYE SURGERY ??? FOOT SURGERY Right 03/23/2016 Right partial 2nd toe amputation Medications Current Medications: Current medications reviewed Arousal, Attention, and Cognition: Orientation Level: Oriented X 4 Cardiopulmonary: BP: 110/67 BP Cuff Location: Right arm BP Patient Position: Semi fowlers Pulse: 89 SpO2: 98 % O2 Device: None (room air) Integumentary/Anthropometric Characteristics: Skin General Assessment Skin and Related Structure Functions: Wound not visualized as it was covered/dressed(right foot with gauze and wound vac) Skin Palpation Palpation: Warm to touch Edema Description Edema Type: Acute Acute Details: Localized - Devices Devices: Wound Vac - Sitting Postures General Assessment: No problem noted Standing Posture General Assessment: No problems noted Range of Motion and Joint Integrity: Active Range of Motion: Within normal limits Upper Quarter: Left Upper Extremity: Right Upper Extremity: Cervical Spine: Lower Quarter: Left Lower Extremity: Right Lower Extremity: Lumbar Spine: Muscle Performance: Grossly >4/5 Strength: Upper Quarter: Left Upper Extremity: Right Upper Extremity: Cervical Spine: Lower Quarter: Left Lower Extremity: Right Lower Extremity: LumbarSpine: Sensation, Reflexes, and Nerve Integrity: Light Touch Sensation: Upper Quarter:Intact C2-T1 Lower Quarter: Intact for lower extremities Neuromotor Function/Development: No problems noted Balance, Mobility, and Gait: Balance: Balance deficits observed Mobility: rolling: independent supine to sit: supervision sit to supine: supervision sit to stand: min contact assist to RW stand to sit: min contact assist bed to chair: min contact assist for hop to gait pattern Gait: Difficulty maintaining NWB RLE throughout transfer so ambulation deferred. Self-Care, Home Management, Work, and Leisure: NE Patient-Reported Outcome Measures: Informed Consent: Informed Consent: The patient consented to the Physical Therapy evaluation. The patient agrees to and understands the Physical Therapy treatment plan and goals. Interventions Completed Today: Time: 1100 Total Treatment Time (minutes): 30 Timed Code Treatment Minutes: 10 Interventions Included: Procedures Procedures Q-Z: Therapeutic activities Therapeutic Activities Minutes: 10 Procedures Comments: - step hawk cues given for sequencing of RW and transfer to ensure NWB on RLE. - min contact assist and ongoing cueing for hop to transfer bed>chair. Assist required for walker management. - sit<>stand x4 with cues for sequencing and assist to maintain NWB on RLE The patient was left in the: chair with the: Call larson in reach Patient/Family Education: Education Topics Activity/Work/Community: Activity/energy conservation Braces and Equipment: Assistive device/technique Mobility, Transfers, and Gait: Balance training, Functional transfers, Gait Safety: Precautions/weight bearing Learner Learner: Patient Method: Verbal Barriers to Learning: Cognition Outcome: Verbalized understanding, Needs practice, Requires assist Team Communication: Notification to, Notified: Nurse When: Prior to therapy session, After therapy session By: [id number] communication About Mobility and Gait: Mobility status Patient Status and Referrals: Patient status, Discharge needs Assessment: Need for Services Physical Therapy is medically necessary to: Address body structure/function impairments, activity limitations, and participation restriction, Facilitate return to prior level of function, Establish and progress mobility/exercise and provide recommendations for staff and safe discharge planning, Improve safety and independence, Provide education in a home exercise program to address impairments inbody functions and structures and promote increased activity and participation Physical Therapy Diagnosis: Physical Therapy Diagnosis Physical Therapy Diagnosis: Impaired aerobic capacity and endurance, Impaired gait, Impaired mobility, Impaired movement system, Impaired posture, Pain, Lower extremity dysfunction Physical Therapy Prognosis: Current Status Compared to Baseline Level of Function Current Status Compared to Baseline Level of Function: Below baseline level Rehabilitation Potential Rehabilitation Potential: Good Patient is 58 year old male status post Irrigation debridement of the right foot, second and third ray amputation, wound VAC application??w/ Dr. Ramirez??on 10/05/2019. Patient is currently requiring assist x1 for bed>chair transfers with significant cueing for sequencing and to maintain NWB on RLE. Due to patient's previous brain tumor and need for ongoing cueing and assist, anticipate his progress may be slow. Good tolerance to activity today. Anticipate discharge home with / assist fromwife vs [facility], pending overall progress with functional mobility. Short-Term Goals: NE Long-Term Goals: Time Frame: 1-2 weeks Goal: bed mobility: supervision Goal: transfers: supervision bed<>chair Goal: gait: ambulation >50 feet with supervision Goal: stairs: ascending/descending stairs with min contact assist PLAN: Necessity: Physical therapy will be provided by the physical therapist and/or physical therapist post production assistant when medically appropriate Frequency: Times per week Times Per Week: 2-3 Intensity: 15-45 minutes Duration: Duration of hospitalization Interventions May Include: Therapeutic activities, Therapeutic exercise, Gait training, Neuromuscular re-education Patient/Family Education: Discharge planning, Equipment, Recommendations, Role of physical therapy/occupational therapy/rehabilitation, Safety Further Data Further Data: Continued evaluation Recommended Discharge Destination Recommended Discharge Destination: Home vs. subacute rehabilitation Recommended Discharge Services Therapy Specific Services: Physical therapy Equipment Recommended Equipment Recommended: To be determined by next provider Pager: [phone] Shelly Garcia, PT 10/06/2019 16:49 * Rainer Cavazos MD - 10/06/2019 0447 EDT Orthopaedic Progress Note Pt Name: Jeff Narvaez Problem: Right necrotic diabetic foot ulceration with osteomyelitis of the second and third rays Procedure: Irrigation debridement of the right foot, second and third ray amputation, wound VAC application w/ Dr. Ramirez on 10/05/2019 24 Hr OR for above S- patient doing okay this morning. Having some pain in his right foot. Denies any recent nausea, vomiting, fevers, chills. O: Blood pressure 125/72, pulse 89, temperature 36.8 ??C (98.2 ??F), temperature source Tympanic, resp. rate 17, height 188 cm (74), weight (!) 110.1 kg (242 lb 11.6 oz), SpO2 96 %. Focused MSK: RLE Wound VAC in place and holding a suction appropriately over the right foot second and third ray amputation site WWP Sensation globally decreased, especially over the first digit Able to fire EHL, FHL, AT, GSC Labs: WBC/Hgb/Hct/Plts: 14.09/12.2/34.6/295 (10/04 721) Na/K/Cl/CO2: 133/3.7/96/27 (10/04 721) BUN/Cr/glu/ALT/AST/amyl/lip: 12/0.50/150/--/--/--/-- (10/04 721) PT/INR/PTT: --/--/28 (10/03 143) A: Jeff Narvaez is a 58 y.o. that is s/p above. P: NWB RLE, AAT Wound VAC 125 mmHg continuous suction Sunday wound VAC changes this week. If patient still has wound VAC, will transition to Sunday wound VAC changes next week. Ambulation SCDs for DVT prophylaxis Antibiotics with vancomycin, Flagyl, cefepime Regular diet PT eval for mobilization Multimodal pain control Disposition pending Rainer Cavazos MD 10/06/19 4:47 [id number] * Shelly Garcia, PT - 10/05/2019 1156 EDT [facility] Rehabilitation Therapy Acute Therapy [facility] Physical Therapy Contact Note Date of Service: 10/05/2019 PT referral received and chart reviewed. Patient to OR today for second ray resection and I&D. PT will follow-up tomorrow. Shelly Garcia, PT 10/05/2019 11:56 * Gilda Black MD - 10/05/2019 0953 EDT Orthopedic progress note: Problem: Extensive right dorsal diabetic foot wound with extension to the plantar side that encompasses most of the second ray Procedure: Plan for or today with Dr. Ramirez for second ray resection and irrigation debridement S: Patient is somewhat emotional this morning but is feeling well overall and feels good about surgery today. Denies fever, chills. Denies any new symptoms in the right lower extremity. O: BP 141/88 (BP Cuff Location: Right arm, BP Patient Position: Semi fowlers) Pulse 89 Temp 35.9 ??C (96.6 ??F) (Tympanic) Resp 18 Ht 188 cm (74) Wt (!) 110.1 kg (242 lb 11.6 oz) SpO2 98% BMI 31.16 kg/m?? Respiratory: Breathing comfortably on room air CV: Regular rhythm edges by distal pulses Focused MSK exam: RLE-wound on the dorsal aspect of the second ray with erythema extending proximally into the foot and up the leg. Decreased sensation in a stocking glove distribution up the leg. Flexes and extends ankle and toes. 2+ DP. A/P: Jeff Narvaez is a 58 y.o. male with PMH significant for uncontrolled T2DM, HTN, HLD, hypothyroidism who now has an extensive right dorsal/volar diabetic foot wound over the second ray. He has been admitted and on IV antibiotics. Plan for or debridement today with second ray resection and I&D. -Pain control as ordered -NWB RLE, otherwise AAT -N.p.o. for or today -Holding anticoagulation for or today -Antibiotics: 2 g cefazolin on-call the OR, otherwise being treated with cefepime, metronidazole, vancomycin -Appreciate medicine recommendations Gilda Black MD 10/05/2019 10:00 * Js Meza MD - 10/04/2019 0959 EDT Orthopaedic Progress Note PROBLEM: Gangrenous right diabetic foot wound 24 HOUR EVENTS: Deep cultures sent prior to IV antibiotic usage, SUBJECTIVE: Pain currently tolerable. Patient denies fever, chills, nausea, vomiting, or systemic symptoms. Patient understands that he will require a below the knee irrigation versus ray resection versus transmetatarsal amputation OBJECTIVE: Gen: NAD, AOx3 R LE: Dressing with strikethrough, malodorous purulent drainage present Incision decreased in stocking glove distribution Motor: 07/07 TA/GS/FHL/EHL DP +2, palpable PT ASSESSMENT/PLAN: Jeff Narvaez 58 y.o. male past medical history of poorly controlled diabetes, craniopharyngioma s/p resection, and subacute onset of right foot diabetic ulcer s/p bedside debridement. Will admit for antibiotics in anticipation for surgical intervention Pain Control as ordered Labs: Potassium repleted, magnesium pending Activity: AAT WB: Nonweightbearing to right lower extremity Diet: N.p.o. AC: Hold Abx: Transition from Vanc/ Zosyn to Vanco, cefepime, Flagyl per ID curbside Scanlon: no Bowel regimen PT Eval, beboo Appreciate Medicine recommendations Js Meza MD 10/04/2019 9:59 PGY2 [id number] Cosigned by Virgilio Ramirez MD at 10/06/2019 17:12 EDT documented in this encounter Procedure Notes * Nguyen Lagunas RN - 10/15/2019 1231 EDT Central Catheter Insertion First Catheter This Session ehs specialist: Patient Location: [id number] Preliminary Data: Insertion Date: 10/15/19 Insertion Time: 1150 First Forest Manager: Nguyen Watts RN RN/MA Documenting Procedure: Karishma Lawson Pre-procedure: Time Out / Final Moment Performed: Yes Hand Hygiene Immediately Prior To Procedure: Yes Site Disinfected-2% Chlorhex/70% Alcohol: Yes Procedure Site Completely Dry: Yes Entire Patient Draped in Sterile Fashion: Yes Intra-procedure: Sterile Gloves Used: Yes Cap, Mask, and Sterile Gown - Operators: Yes Sterile Field Maintained: Yes Cap and Mask Worn - All Personnel: Yes Post-procedure: Sterile Dressing Applied - Sterile Technique: Yes Dressing Dated And Timed: Yes Needle Passes: VA RN Makes 2 Or Fewer Needle Passes: 2 or fewer passes Physician Documentation Pre-Procedure: Procedure To Be Performed: New central line placement Indication: Long-term therapy Line Priority: Routine Tip Confirmation: 3CG Consent Obtained: Yes The patient and/or family have been provided education/training to minimize the risk of central line-associated bloodstream infections. Central Line Type: Central Catheter Type: PICC PICC Type: Solo PICC Central Line Details: Line Location: Right;Basilic Final Tip Location: Other (Comment)(CAJ by 3CG) Line Lumens (#): Single Central Line Size: 4 Fr Line Coating: Non-antimicrobial coated Vessel Size: 6 mm Vein Depth (cm): 1.0 cm Line Trim Length: 49 cm Line External Length: 2 cm Line Securement Device: Statlock device Responsible Service / IR Details: Responsible Service: VA RN Lidocaine 1% - Route/Dose (cc's): Intradermal Central Line Materials and Methods: Number of Attempts: 1 Number of Sites Attempted: 1 Number of Kits Used: 1 Location Device Used: Sherlock;Ultrasound;3CG Central Line Operators: Number Of Operators: 1 First Forest Manager's Name: Nguyen Jain First Forest Manager's Title: Vascular practical nurse clinical coordinator Unless otherwise noted, there were no complications, no blood loss and no cultures obtained. NGUYEN LAGUNAS RN 10/15/2019 12:32 documented in this encounter Consult Notes * Marija Bajwa MD - 10/08/2019 0911 EDT Endocrine Inpatient Consult Note Admit Date: 10/03/2019 Date of Service: 10/08/2019 Requesting Physician: Virgilio Ramirez Specialty Completing Consult: Orthopedics Reason for Consult: T2DM with hyperglycemia HPI:(include onset,location,quality,severity, duration, timing, associating symptoms) This is a 58 y/o M with PMHx T2DM (poorly controlled), craniopharyngioma s/p resection (2006), chronic R foot diabetic ulceration s/p distal R 2nd toe amputation, hypothyroidism, memory impairment (unclear) who presented to [facility] 10/03/2019 with R foot pain over 1 week. Pt reported increased rednessat the site as well as an episode of chills. He has associated decreased sensation on R foot that is chronic in nature but denies n/v, SOB, CP, abdominal pain, other rashes, bowel changes, urinary changes. Per previous notes, pt was given vanc/zosyn in the ED and received wound debridement by ortho at bedside. Pt was admitted to orthopedic service and has undergone 2nd and 3rd ray amputations, scheduled for transmetatarsal amputation tomorrow 10/09/2019. Endocrinology was consulted for management of elevated BG levels. Pt has T2DM of unknown duration which has been poorly controlled (Hgb A1c 15.8). He believes it hasbeen <5 years but memory difficulties make this difficult to assess. Pt has been non-compliant with home medications (see below) for the past several months during the pandemic and has not been checking BG levels at home. He states he has a varied diet and does snack between meals. He reports taina yuria and polydipsia which has been chronic. Pt denies vision changes or blurriness, changes in sensation, n/v, diarrhea, constipation, CP, SOB. He has reported episodes of perceived hypoglycemia that are very rare and he has not checked his BG at this time but finds improvement with eating something. Diabetes HX: Duration: Unknown Control: Currently poor Complications: Neuropathy, chronic R foot ulceration s/p 2nd and 3rd ray amputations Home Regimen: Non-compliant with glimepiride 4 mg PO BID, glargine 70 units daily, lispro 40 units w/ dinner, exenatide 2 mg SQ weekly Self Care, SBGM: Does not check BG regularly Regular Diabetes Provider: PCP [facility] PSH Past Medical History: Diagnosis Date ??? Arthritis ??? Back pain ??? Diabetes mellitus (HCC-CMS) ??? Hypothyroidism ??? Wears glasses Past Surgical History: Procedure Laterality Date ??? BRAIN SURGERY s/p tumor ??? EYE SURGERY ??? FOOT SURGERY Right 03/23/2016 Right partial 2nd toe amputation Social History Family History Social History Tobacco Use ??? Smoking status: Never Smoker ??? Smokeless tobacco: Former User Types: Chew Substance Use Topics ??? Alcohol use: No Family History Problem Relation Age of Onset ??? Stroke Mother 71 ??? Cancer Father 65 lung cancer ??? Colon Cancer Neg Hx Medications ??? acetaminophen (TYLENOL) tablet 1,000 mg, oral, Q6H PRN ??? 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 ??? cefePIME (MAXIPIME) 2,000 mg in sodium chloride (NS MBP) 50 mL IVPB, intravenous, Q8H ??? cholecalciferol (Vitamin D3) tablet 2,000 Units, oral, QHS ??? dextrose 50 % solution 12.5 g, intravenous, PRN ??? glucagon injection 1 mg, intramuscular, PRN ??? HYDROmorphone (PF) (DILAUDID) 0.5 mg/0.5 mL syringe, , ??? insulin aspart U-100 (NOVOLOG FLEXPEN) injection 12 Units, subcutaneous, TID WC ??? insulin aspart U-100 (NOVOLOG FLEXPEN) injection, subcutaneous, QHS ??? insulin aspart U-100 (NOVOLOG FLEXPEN) injection, subcutaneous, TID WC ??? insulin glargine (LANTUS SOLOSTAR) injection pen 38 Units, subcutaneous, QHS ??? lactated ringers (LR) infusion, intravenous, CONTINUOUS ??? levothyroxine (SYNTHROID) tablet 112 mcg, oral, DAILY ??? lidocaine (PF) 10 mg/mL (1 %) injection 2 mg, intradermal, PRN ??? methocarbamoL (ROBAXIN) tablet 750 mg, oral, QID ??? metroNIDAZOLE (FLAGYL) tablet 500 mg, oral, Q8H ??? Multivitamins with Minerals tablet 1 Tab, oral, QHS ??? oxyCODONE (ROXICODONE) immediate release tablet 5-10 mg, oral, Q4H PRN ??? [START ON 10/09/2019] sodium chloride 0.9 % (NS) infusion, intravenous, CONTINUOUS ??? traMADoL (ULTRAM) tablet 50 mg, oral, Q6H PRN ??? vancomycin (VANCOCIN) 1,750 mg in dextrose 5% (D5W) 500 mL IVPB, intravenous, Q12H ??? zinc sulfate (ZINCATE) capsule 220 mg, oral, QHS Allergies No Known Allergies Review of Systems: A ten point review of systems was performed and was negative except for pertinent positives noted in the HPI Objective/Physical Exam: VS: BP: 136/67 Pulse: 89 Heart Rate: 74 BPM Resp: 18 Temp: 36.6 ??C (97.9 ??F) SpO2: 92 % O2 Flow Rate (L/min): 0 l/min O2 Device: None FIO2 %: 98 % Exam: Respiratory: Clear to auscultation bilaterally Cardiovascular: RRR, no m/r/g Extremities: Pedal Pulses: Intact DP on L foot, R foot wrapped and unable to assess (photos 10/04/2019 reviewed) Gastrointestinal:: Soft, NTND, no organomegaly or masses noted. Skin: Warm, dry; no skin ulcerations or breaks on L foot; dystrophic toenails on L Neurologic: Appears somewhat confused and having difficulty remembering details. Reported sensationto light touch L foot Labs: No results for input(s): GLUCOSEFINGE in the last 72 hours. Lab Results Component Value Date WBC 7.35 10/08/2019 RBC 3.98 (L) 10/08/2019 HGB 12.1 (L) 10/08/2019 HCT 35.3 (L) 10/08/2019 MCV 89 10/08/2019 MCH 30.4 10/08/2019 MCHC 34.3 10/08/2019 PLT 311 10/08/2019 NEUTROABS 7.96 10/07/2019 SEDRATE >100 (H) 10/03/2019 Lab Results Component Value Date SERGLU 203 (H) 10/07/2019 NA 134 (L) 10/08/2019 K 3.1 (L) 10/08/2019 CL 94 (L) 10/08/2019 CO2 33 (H) 10/08/2019 BUN 6 (L) 10/08/2019 CREATININE 0.59 (L) 10/08/2019 CALCIUM 8.7 10/04/2019 CALCGFR 112 10/08/2019 ALKPHOS 115 10/04/2019 TBIL 0.6 01/17/2018 AST 91 (H) 01/17/2018 ALT 90 (H) 01/17/2018 LABALBU 3.0 (L) 10/04/2019 TP 7.7 01/17/2018 Hgb A1c - 15.8 Glucose - 209 (AM), 248, 247, 286 Assessment: 58 y/o M with PMHx T2DM (poorly controlled), craniopharyngioma s/p resection (2006), chronic R foot diabetic ulceration s/p distal R 2nd toe amputation, hypothyroidism, memory impairment (unclear) who presented to [facility] 10/03/2019 with R foot pain over 1 week. Found to have R necrotic foot ulceration w/ osteomyelitis of second and third rays, s/p debridement, 2nd and 3rd ray amputations scheduled for OR tomorrow 10/09/2019 for transmetatarsal amputation. Pt has T2DM of unknown duration which has been poorly controlled (Hgb A1c 15.8). He has been non-compliant with home medications as well as BG monitoring. Primary team initiated insulin regimen of lantus 35 units daily, aspart 8 units with meals, which was increased to glargine 38 and aspart 12 units with meals on 10/07/2019. Pt has persistent hyperglycemia (209 this AM) and we recommend increasingaspart with meals and maintaining glargine at 38 units daily. We will continue to monitor BG levels. Recommendations: - C/w glargine 38 units daily - Increase aspart to 15 units with meals - I will place this order - Continue to monitor FSBG and titrate as needed - Optimize home regimen prior to discharge and ensure plan is in place to encourage compliance MARIJA BAJWA MD 10/08/2019 9:11 Cosigned by Ketty Nicole MD at 10/08/2019 14:11 EDT Associated attestation - Ketty Nicole MD PhD - 10/08/2019 1411 EDT Attestation: I saw and examined the patient with the resident/fellow 10/08/2019. I agree with the findings and plan of care documented in the resident's/fellow's note. Ketty Nicole MD 10/08/2019 14:11 * Jorge Cunningham MD - 10/07/2019 1037 EDT Infectious Disease Inpatient Consultation Patient: Jeff Narvaez : 1960 Date of Admission: 10/03/2019 Date of Consultation: 10/07/19 Requested by: Virgilio Ramirez MD Reason for Consultation: follow History of Present Illness: This is a 58 y.o. diabetic gentleman who was admitted to [facility] on 10/03/2019 with right foot pain norberto background of chronic ulcer. He was afebrile and has remained so. His blood cultures from admission are negative. MR showed osteomyelitis of 2nd phalanx and 2nd/3rd MT's. He went to the OR on 10/04 and had 2nd/3rd ray amputations,with findings of multiple deep abscesses. Today he denies fevers, chills. Denies any perceived side-effect from antibiotics. No nausea, diarrhea, pruritis, rash. Denies pain. Review of Systems: A ten point ROS was conducted and is negative from an Infectious Disease perspective other than what is mentioned above in the HPI. Past Medical History: reviewed. - poorly-controlled DM, A1C >15 on admission - hypothyroidism - history of craniopharyngioma s/p resection 2006, some memory/balance deficits - prior infections: right 2nd toe osteo s/p partial amputation 2016 - foreign bodies: denies Medications: reviewed. Anti-microbials: - pip/tazo x1 on 10/02 - cefepime 10/02-current - metronidazole 10/02-current - vanco 10/02-current Allergies: reviewed. No known antibiotic allergies. Social History: reviewed. Lives in [place] w/ his Nguyen. Family History: Reviewed. No known immunodeficiency. Physical Examination: Temp: [35.8 ??C (96.4 ??F)-36.6 ??C (97.8 ??F)] , Pulse: [89] , Resp: [17-18] , BP: (110-131)/(64-77) , SpO2: [92 %-98 %] General - no acute distress Eyes - anicteric, conjunctivae without erythema or petechiae ENT - no thrush Neck - supple Cardiovascular - regular rhythm, no murmur Respiratory - breathing comfortably on room air without accessory muscle use, lungs CTA Abdomen - soft, nontender Extremities - right foot bandaged, photos from 10/03 reviewed MSK - no joint effusion or erythema Skin - no rash Neuro/Psych - alert, no facial asymmetry, moving all extremities Labs & Imagin10/07/19: - lytes w/ hyponatremia, hypokalemia - Cr 0.5 - WBC 10.4, Hgb 11.3, Plt 305 Imaging: reviewed. - 10/04/19 MR right foot w/ osteomyelitis of 2nd phalanx and 2nd/3rd MT's, diffuse soft tissue edema/gas in forefoot/midfoot consistent w/ SSTI Micro: reviewed. - 10/03/19 blood no growth - 10/03/19 covid neg - 10/04/19 tissue culture w/ mixed org's, few B.frag - 10/05/19 bone culture Strep anginosus, MSSA, Enterococcus avium, E.coli, B.frag Impression: 1. Right DM foot infection - MR w/ osteomyelitis - s/p / ray amp 10/05/19 w/ findings of multiple deep abscesses - cultures mixed org's thus far - no pathology sent Recommendations: 1. Continue empiric vanco (pharm to dose for trough 15), cefepime, metronidazole 2. Follow up final OR cultures/susceptibilities. May be able to simplify to pip/tazo or amp/sulbactam pending susceptibilities 3. Given extent of infection and no pathology for margins I think best to plan to treat for 6wks. Traditionally for osteomyelitis the treatment is IV. Thank you for allowing us the privilege of participating in Mr. Narvaez's care. Jorge Cunningham MD Infectious Disease Attending * Elizabeth Costello - 10/06/2019 1133 EDTAssociated Order(s): CONSULT NUTRITION Nutrition Initial Assessment: Reason for Assessment: Consult received for diabetic foot wound Medical Summary: Jeff Narvaez is a 58 y.o. male h/o craniopharyngioma resection (2006) c/b memory and balance deficits, poorly controlled DM2 (A1c 15 September 2018) c/b neuropathy, and chronic diabetic foot ulcer on right foot with amputation of distal right second toe p/w right foot pain. Problem: Right necrotic diabetic foot ulceration with osteomyelitis of the second and third rays Procedure: Irrigation debridement of the right foot, second and third ray amputation, wound VAC application w/ Dr. Ramirez on 10/05/2019 Past Medical History: Diagnosis Date ??? Arthritis ??? Back pain ??? Diabetes mellitus (HCC-CMS) ??? Hypothyroidism ??? Wears glasses Subjective Tells me he had a large benign brain tumor removed and since then has had memory and vision problems, needs glasses for distance vision. Not able to remember names well, and appreciates only being asked one question or told one concept at a time. I haven't been taking my injections at home, I don't know why, I think I'm just lazy. My meds are right there on the table, and I take my orals, but not my injections. Reports he was consistent with taking injections in the past, but it got away from me. It's all on me, I'm not doing what I'm supposed to be doing. Had glucometer but it quit on me, will be getting new one from inpatient DM RN tomorrow. Reports peeing all the time, being thirst, drinking 1.5 gallons of water per day. He cannot remember how long he has had diabetes, somewhere between 1 and 10 years. Met with an RD at [facility] for nutrition education at some point in the past, but hasn't been following recommendations much lately, I fell off the wagon. He has some misconceptions about nutrition and diabetes, such as that sodium effects glucose levels. He also wasn't familiar with terminology such as high carbohydrate foods. Reports his decreased his portion sizes after his diabetes diagnosis. He keeps a jar of hard candy in the barn in case he feels hypoglycemic, they perk me right up and then I know it's time for the peanut butter sandwich or I'll drop right back down. 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 Weights Filed This Admission 10/03/19 2530 Weight: (!) 110.1 kg (242 lb 11.6 oz) Wt Readings from Last 8 Encounters: 10/03/19 (!) 110.1 kg (242 lb 11.6 oz) 09/23/18 (!) 119.3 kg (263 lb) 06/25/18 (!) 122 kg (269 lb) 05/30/18 (!) 122.7 kg (270 lb 8 oz) 03/28/18 (!) 124.7 kg (275 lb) 03/14/18 (!) 123.8 kg (273 lb) 01/16/18 (!) 123.8 kg (273 lb) 12/12/17 (!) 124.3 kg (274 lb) Pertinent Medications: Scheduled ??? cefePIME, 2,000 mg, Q8H ??? cholecalciferol (Vitamin D3), 2,000 Units, QHS ??? HYDROmorphone (PF), , ??? insulin aspart U-100, , TID WC ??? insulin glargine, 35 Units, QHS ??? levothyroxine, 112 mcg, DAILY ??? methocarbamoL, 750 mg, QID ??? metroNIDAZOLE, 500 mg, Q8H ??? Multivitamins with Minerals, 1 Tab, QHS ??? vancomycin, 15 mg/kg, Q12H ??? zinc sulfate, 220 mg, QHS Continuous ??? lactated Ringers Pertinent Labs: Lab Results Component Value Date/Time NA 131 (L) 10/06/2019 07:54 K 3.0 (L) 10/06/2019 07:54 PHOS 3.8 10/04/2019 13:02 MG 2.0 10/04/2019 13:02 CALCCA 9.5 10/04/2019 13:02 BUN 6 (L) 10/06/2019 07:54 CREATININE 0.51 (L) 10/06/2019 07:54 CL 94 (L) 10/06/2019 07:54 CO2 30 10/06/2019 07:54 GLUCOSEFINGE 348 (H) 07/30/2018 12:54 WBC 13.80 (H) 10/06/2019 07:54 WBC 13.80 (H) 10/06/2019 07:54 HGB 11.3 (L) 10/06/2019 07:54 HGB 11.3 (L) 10/06/2019 07:54 HCT 32.7 (L) 10/06/2019 07:54 HCT 32.7 (L) 10/06/2019 07:54 Lab Results Component Value Date/Time HGBA1C 15.9 (H) 10/04/2019 13:02 HGBA1C 15.8 (H) 10/03/2019 22:25 ESTAVGGLUC 349 05/30/2018 14:34 ESTAVGGLUC 249 11/26/2015 11:45 GLUCOSEPOC 180 (H) 10/06/2019 09:46 GLUCOSEPOC 159 (H) 10/05/2019 22:07 GLUCOSEPOC 211 (H) 10/05/2019 19:11 GLUCOSEPOC 130 (H) 10/05/2019 11:03 GLUCOSEPOC 196 (H) 10/05/2019 05:14 GLUCOSEFINGE 348 (H) 07/30/2018 12:54 GLUCOSEFINGE 105 (H) 03/23/2016 17:10 GLUCOSEFINGE 128 (H) 03/23/2016 12:40 Estimated Nutrition Intake: 3 meals, 1 snack per day at home Assessment: Poorly controlled diabetes with A1C of 15.9 (eag 410). Patient reports he hasn't been taking his prescribed insulin at home, and that his glucometer broke. He intends to resume insulin injections andis looking forward to receiving new glucometer. Hard to suggest diet changes given difficulty predicting glucose levels after he resumes home insulin. His breakfast sounds high in carbs, but they are mostly complex; whole wheat cereal, fruit. He reports hypoglycemia symptoms while at work, which he treats appropriately with hard candy followed by meal containing fat, protein, and carb. May need a more substantial meal than that peanut butter sandwich, however, and his follow-up 'snack' is about 60-80 grams of carbs from cheese crackers. Suggested to patient that he snack on string cheese instead. He was feeling hungry during interview so discussed low carb snack options and ordered him some cheddar cheese and hard-cooked eggs. I offered him a menu listing the carb content of the hospital's foods, but he declined this, I don't want to have to count up numbers before a meal...unless you tell me I need to? He has not so farhit his carb limit when ordering from Room Service. Extended period of time spent obtaining nutrition history from patient given his memory problems. Education today somewhat limited d/t same. Patient given verbal education on the following topics: Carb counting: goal of 40 to 75 grams per meal (let patient know he is on a carb limit at the hospital, but did not discuss in terms of outside diet; he does not want to have to count carbs) Meal timing: have regularly scheduled meals with adequate time between meals and snacks. Do not skip meals. (not discussed today) Label reading: check serving sizes, read label for carbohydrates and not for sugar (not discussed today) High carb food groups: grains/legumes, fruits & fruit juice, sweets/pastries, some dairy, starchy vegetables (limited discussion today; suggested low carb snack ideas, reviewed that hot chocolateis a high-carb food) Other topics as needed: discussed that weight loss may help with diabetes control, but that he should NOT try to lose weight until his foot has healed. Patient provided with the following educational materials Quick Start Guide to Diabetes Nutrition Risk Level: Moderate (2) Medical Nutrition Therapy Plan and Recommendations: -Continue Consistent Carb diet -Include referral for outpatient nutrition counseling at discharge -Diabetes education provided as above -Monitor glucose, adjust insulin as needed Elizabeth Costello RD, ALEXANDER Marsh 6 pager number: [phone] * Seeker, MD Js - 10/04/2019 0515 EDT Images from the original note were not included. Orthopaedic Surgery Consultation Date: 10/04/2019 Reason for Consult: R Diabetic foot wound HPI: Jeff Narvaez is a very pleasant 58 y.o. 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 He states it did not really bleed so I was not concerned. He denies fever, chills, nausea, vomiting, shortness of breath. Patient noticed breast colored malodorous purulence and presented to ED. Patient denies involvement of other joints, proceeding trauma to the area. Ambulatory status: unassisted PMH: As per HPI. Also has a past medical history of Arthritis, Back pain, Diabetes mellitus (HCC-CMS), Hypothyroidism, and Wears glasses. He also has no past medical history of Anemia, Anomaly, cardiac, Cancer (HCC-CMS), Cerebral artery occlusion with cerebral infarction (HCC-CMS), Chronic kidney disease, Complication of anesthesia, GERD (gastroesophageal reflux disease), Hemorrhagic disorder (HCC-CMS), Hypertension, Inflammatory bowel disease, Liver disease, Lung disease, Pacemaker, or Seizures (HCC-CMS). PSH: As per HPI. Also has a past surgical history that includes brain surgery; Eye surgery; and Foot surgery (Right, 03/23/2016). Medications: Current Facility-Administered Medications: ??? cefePIME (MAXIPIME) 2,000 mg in sodium chloride (NS MBP) 50 mL IVPB, 2,000 mg, intravenous, Q8H, Js Meza MD ??? electrolyte-A (PLASMALYTE-A) solution, , intravenous, CONTINUOUS, Js Meza MD ??? metroNIDAZOLE (FLAGYL) tablet 500 mg, 500 mg, oral, Q8H, Js Meza MD ??? oxyCODONE (ROXICODONE) immediate release tablet 5-15 mg, 5-15 mg, oral, Q3H PRN, Js Meza MD, 10 mg at 10/04/19 0937 ??? potassium chloride in water infusion 20 mEq, 20 mEq, intravenous, Now, Js Meza MD ??? vancomycin (VANCOCIN) 1,750 mg in dextrose 5% (D5W) 500 mL IVPB, 15 mg/kg, intravenous, Q12H, Js Meza MD Current Outpatient Medications: ??? atorvastatin (LIPITOR) 20 mg tablet, TAKE ONE TABLET BY MOUTH ONE TIME DAILY , Disp: 90 Tab, Rfl: 2 ??? blood glucose (FREESTYLE TEST) test strips, 1 Strip by misc (non-drug; combo route) route 2 times daily, Disp: 100 Each, Rfl: 1 ??? blood glucose meter (FREESTYLE FREEDOM LITE), Test FS BID., Disp: 1 Each, Rfl: 0 ??? exenatide microspheres (BYDUREON) 2 mg/0.65 mL pen injector, Inject 2 mg into the skin once a week., Disp: 4 Each, Rfl: 3 ??? FREESTYLE FREEDOM LITE, Use as directed as needed (glucose monitoring)., Disp: 1 Each, Rfl: 0 ??? glimepiride (AMARYL) 4 mg tablet, TAKE ONE TABLET BY MOUTH TWICE DAILY , Disp: 180 Tab, Rfl: 1 ??? ibuprofen (MOTRIN) 200 mg tablet, Take 800 mg by mouth daily. , Disp: , Rfl: ??? insulin glargine,hum.rec.anlog (INSULIN GLARGINE, BASAGLAR KWIKPEN,) 100 unit/mL (3 mL) injection pen, Inject 70 Units into the skin at bedtime., Disp: 65 mL, Rfl: 3 ??? insulin lispro (HUMALOG KWIKPEN) 100 unit/mL injectable pen, Inject 40 Units into the skin daily with dinner., Disp: 36 mL, Rfl: 3 ??? lancets, Test BID., Disp: 100 Each, Rfl: 1 ??? levothyroxine (SYNTHROID) 112 mcg tablet, Take 1 Tab by mouth daily., Disp: 90 Tab, Rfl: 1 Allergies: has No Known Allergies. FHx/SHx: Pt lives at [address] [place] [address]. Non Smoker, occasional EtoH, denies IVDU. 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 rate 20, height 188 cm (74), weight (!) 110.1 kg (242 lb 11.6 oz), SpO2 98 %. General: Awake, alert and pleasantly conversant Psych: Pleasant affect MSK: 2+ DP, 2+ PT Necrotic dorsal and plantar with copious malodorous fluid that probes to bone in several directions. 5 EHL FHL Sensation decreased in stocking glove distribution Labs: WBC/Hgb/Hct/Plts: 15.23/12.6/36.5/274 (10/02 2224) Na/K/Cl/CO2: 130/3.4/87/29 (10/02 2224) BUN/Cr/glu/ALT/AST/amyl/lip: 22/0.73/357/--/--/--/-- (10/02 2224) Diagnostic Imaging: AP, lateral and oblique views of the right foot demonstrate contained free air, trabecular lucency and decreased cortical opacification representing osteomyelitis of the second metatarsal, phalanges Procedure: The risks, benefits, and alternatives of the procedure were discussed with the patient; the patientelected to proceed with incision and drainage of right foot and consent was obtained prior to proceeding. No anesthesia was necessary as patient has no sensation in foot. The patient was prepped and draped in sterile fashion. Soft tissue, bone, gross purulence area of roughly 8 x 3 x 2 cm was debrided. Bone biopsy deep tissue culture was taken and sent prior to antibiotics. Patient tolerated the procedure well and there were no complications. Post procedure imaging showed improved alignment. Post procedure exam was unchanged. Assessment: Jeff Narvaez 1960 [id number] Jeff Narvaez is a 58 y.o. male W PMH of uncontrolled T2DM, HTN, HLD, hypothyroidism, who has a extensive right dorsal foot wound that communicates with plantar wound. Plan for admission, broad-spectrum IV antibiotics, surgical debridement pending OR availability. Plan: 1. Admit to orthopedics 2. To the OR for I&D/ TMA versus BKA pending OR availability 3. Follow up MRI d/w: Dr. Ramirez, Pre Op Checklist - Consent completed for transmetatarsal amputation/below-knee amputation - Extremity signed - NPO - Insert PIV panel ordered (20 gauge or larger) - Case NOT booked Labs: - CBC & Coags ordered - COVID Test Ordered - Type and Screen, ABO Medications: - mIVF ordered - Pre-operative antibiotics ordered - Anticoagulation/Anti-platelet discontinued (aspirin ok to continue) - Insulin (adjust Q6 with NPO status / adjust long acting if appropriate) - ARBS/KACEY medications discontinued (if necessary) Js Meza MD PGY2 10/04/2019 11:05 [id number] Cosigned by Virgilio Ramirez MD at 10/06/2019 17:12 EDT * Yadira Cordova MD - 10/04/2019 0434 EDT Images from the original note were not included. Medicine Consult Service Date: 10/04/2019 Admit Date: 10/03/2019 20:59 Primary Care Provider: Karishma Batres Chief Complaint: foot pain HPI Jeff Narvaez is a 58 y.o. male h/o craniopharyngioma resection (2006) c/b memory and balance deficits, poorly controlled DM2 (A1c 15 September 2018) c/b neuropathy, and chronic diabetic foot ulcer on right foot with amputation of distal right second toe p/w right foot pain. Has decreased sensation in feet that is chronic and denies recent trauma but noticed right second toe was red approximately one week ago when he started feeling poorly in general. Describes one episode of chills/rigors and spreading redness and pain on right foot/leg. His memory deficits make timeline challenging but he describes sudden changes to the foot in the past seven days. Denies any shortness of breath, abdominal pain, nausea, vomiting, dysuria, other rash. Has not taken his insulin in 1-2 days. No antibiotic use in recent months. No cardiac or peripheral artery stents. No history of stroke, bleeding problem, clotting problem, steroid use, difficulty with anesthesia. No family history of difficulty with anesthesia. Takes daily NSAIDs but denies antiplatelet/anticoagulant medication. In the ED he received vanc/zosyn and ortho debrided at bedside. Full code. medical decision maker if he were unable. Does use assistive device. Review of Systems A complete 10 point [...] Right 03/23/2016 Right partial 2nd toe amputation Social History Tobacco Use ??? Smoking status: Never Smoker ??? Smokeless tobacco: Former User Types: Chew Substance Use Topics ??? Alcohol use: No Family History Problem Relation Age of Onset ??? Stroke Mother 71 ??? Cancer Father 65 lung cancer ??? Colon Cancer Neg Hx Current Outpatient Medications: atorvastatin (LIPITOR) 20 mg tablet TAKE ONE TABLET BY MOUTH ONE TIME DAILY blood glucose (FREESTYLE TEST) test strips 1 Strip by misc (non-drug; combo route) route 2 times daily blood glucose meter (FREESTYLE FREEDOM LITE) Test FS BID. exenatide microspheres (BYDUREON) 2 mg/0.65 mL pen injector Inject 2 mg into the skin once a week. FREESTYLE FREEDOM LITE Use as directed as needed (glucose monitoring). glimepiride (AMARYL) 4 mg tablet TAKE ONE TABLET BY MOUTH TWICE DAILY ibuprofen (MOTRIN) 200 mg tablet Take 800 mg by mouth daily. insulin glargine,hum.rec.anlog (INSULIN GLARGINE, BASAGLAR KWIKPEN,) 100 unit/mL (3 mL) injection pen Inject 70 Units into the skin at bedtime. insulin lispro (HUMALOG KWIKPEN) 100 unit/mL injectable pen Inject 40 Units into the skin daily with dinner. lancets Test BID. levothyroxine (SYNTHROID) 112 mcg tablet Take 1 Tab by mouth daily. Unable to confirm with patient. Does not think he is taking exenatide or glimepiride. Uncertain howoften takes insulin or dose but has not taken in >24 hours. No Known Allergies Objective Vitals Temp: [36.4 ??C (97.6 ??F)-36.5 ??C (97.7 ??F)] (), Heart Rate: -- (), Pulse: [84-106] (), Resp: [16-18] (), BP: (111-133)/(69-72) (), SpO2: [95 %-98 %] (), Numeric Pain Level (Scale 1-10): 7 Weight: Weight : (!) 110.1 kg (242 lb 11.6 oz) Body mass index is 31.16 kg/m??. Physical Exam General: resting comfortably upright on room air HEENT: normocephalic, conjunctiva clear, no scleral icterus, no nasal drainage, moist mucous membranes CV: S1 and S2 normal, no murmurs/rubs/gallops appreciated, no peripheral edema, left DP intact while right DP difficult to palpate with extent of infection Pulm: nonlabored breathing, clear to auscultation bilaterally Abdomen: soft, nondistended, nontender to palpation /Rectal: scanlon absent Neuro: alert, oriented to person/place/day of week but not year, speaking in full sentences, movingall extremities spontaneously Psych: full affect, poor short term recall (repeatedly asks same questions like provider name and for drink/food), requires frequent rephrasing/repeating of questions Skin: foul odor with extensive erythema/necrosis/desquamation on right foot (image below) with ulcer on plantar surface Labs I have personally reviewed Recent Labs 10/03/19 2225 WBC 15.23* RBC 4.18* HGB 12.6* HCT 36.5* MCV 87 MCH 30.1 MCHC 34.5 PLT 274 NEUTROABS 12.61* SEDRATE >100* Recent Labs 10/03/19 2225 NA 130* K 3.4* CL 87* CO2 29 BUN 22 CREATININE 0.73 Recent Labs 10/03/19 2238 COLOR Yellow CLARITYU Clear GLUCOSEU 2+* BILIRUBINUR 1+* KETONES 1+* LABSPEC 1.015 PHUR 6.0 PROTEINUA 1+* NITRITE Negative LEUKESTER Negative Imaging Foot xray (right) personally reviewed with subcutaneous air Assessment Jeff Narvaez is a 58 y.o. male h/o craniopharyngioma resection (2006) c/b memory and balance deficits, poorly controlled DM2 (A1c 15 September 2018) c/b neuropathy, and chronic diabetic foot ulcer on right foot with amputation of distal right second toe p/w right foot pain. Concern for aggressive tissue infection and osteomyelitis. Plan #Diabetic foot infection/osteomyelitis/concern for NSTI - rapid progression over past week with poorly controlled diabetes, foul odor with necrosis and desquamation, concerning xray, LRINEC 9 Encourage emergent debridement, discussed with ortho and ED (at this time will hold on admission tomedicine until know plan) Continue vanc/zosyn Follow up on cultures to help narrow antibiotics Preoperative CXR and EKG if surgery delayed #DM2 NonDKA insulin gtt for goal glucose 140-180 A1c (ordered) #Hypokalemia Replete Check magnesium Would give gentle IVF with mild electrolyte disturbances and NPO status Yadira Cordova MD 10/04/2019 5:33 Hospitalist documented in this encounter OR Notes * OR Surgeon - Angelina Gonzales DPM - 10/09/20192058 EDT OPERATIVE REPORT SERVICE DATE: 10/09/2019 SURGEON: Angelina Gonzales DPM ROLLER GOLD LEAF: None. PREOPERATIVE DIAGNOSIS: Right foot abscess and gangrene. POSTOPERATIVE DIAGNOSIS: Right foot abscess and gangrene. PROCEDURE: Right foot transmetatarsal amputation. PATHOLOGY: 1. Right foot 2nd metatarsal margin sent to pathology. 2. Right foot 3rd metatarsal margin sent to pathology. 3. Right forefoot including the 1st, 4th and 5th rays sent to pathology. ANESTHESIA: MAC plus local consisting of 20 mL of a 1:1 mixture of 0.5% Marcaine plain and 1% lidocaine plain given as an ankle block. HEMOSTASIS: Pneumatic ankle tourniquet at 250 mmHg for 59 minutes. ESTIMATED BLOOD LOSS: Less than 100 mL. MATERIALS: None. INJECTABLES: Intraoperative block of 9 mL of additional local anesthesia. COMPLICATIONS: None. INDICATIONS: Mr Narvaez presented over the weekend with gangrene and abscess, right forefoot. He was taken to the operating room over the weekend with a colleague, where he had a partial 2nd and 3rd ray amputation done and wound VAC application. He was monitored during the week and plan was made to take him back to the operating room for a transmetatarsal amputation with possible wound VAC application. Discussion was held that he was still at risk of a more proximal amputation including a below-knee amputation, given the extent of the infection surrounding soft tissues, and his very poorly controlled diabetes. All of the risks and benefits were discussed including possible need for further surgery, and he was taken to the operating room at this time. NARRATIVE: Under mild sedation, the patient was brought in to the operating room and placed on the operative table in the supine position. Pneumatic ankle tourniquet was placed about the right ankle.Following IV sedation, local anesthesia was obtained about the right ankle utilizing 20 mL of a 1:1mixture of 0.5% Marcaine plain and 1% lidocaine plain. The foot was then scrubbed, prepped and draped in the usual aseptic manner. Next, the wound was explored. It should be noted that there was tracking laterally across the prioramputation site starting over the 2nd and 3rd metatarsal stumps and extending over the 4th and 5th metatarsals towards the cuboid. Purulence was expressed here and nonviable tissue was noted. The inci girish was made for the transmetatarsal amputation with a plantar flap left over the 1st ray as well as the 4th and 5th rays laterally. Once adequate exposure was obtained and good hemostasis was obtained utilizing both deep Vicryl sutures and electrocautery, the metatarsals were visualized and the transmetatarsal amputation was performed. It should be noted that a good parabola was noted with the 2nd metatarsal stump left slightly longer than adjacent stumps and oriented from dorsal distal to plantar proximal. The 2nd and 3rd metatarsal margins were sent to pathology as separate specimens and the remainder of the forefoot was sent to pathology. The wound was then further explored. Nonviable tissue dorsally was removed and purulence and necrotic tissue was noted to extend proximal laterally. No proximal extension to the ankle. This was all sharply debrided. Exposed tendon was noted laterally, dorsally. Plantar tissue appeared viable. This did require resection plantar medially in the area of the 1st metatarsal head where nonviable tissuewas noted. The area was then flushed with copious amounts of normal sterile saline. Decision was made to reapproximate the plantar flaps centrally as well as dorsal medially with Vicryl and 3-0 Prolene suture. The dorsal, central, and lateral aspects were not able to be closed due to the extent of the infection and debridement here. Tourniquet was let down. Good hemostasis was appreciated. The dorsal area was packed with a saline wet-to-dry dressing. Plantar area incision lines were covered with Xeroform. Gauze dressing was applied, ABD was applied, and a light Kacey bandage was applied. The patient tolerated the procedure and anesthesia well. He was transferred to the recovery room with vital signs stable and vascular status intact. Following a period of postoperative monitoring, he will be transferred back to the floor for continued close monitoring and medical management. Unless otherwise noted, there were no complications, no blood loss, no cultures obtained, no specimens removed, and no drains retained. Angelina Gonzales DPM / CF Confirmation: [id number] Dictation ID: [id number] cc: * OR PreOp - [place] RN - 10/09/2019 0617 EDT PREOP INPATIENT NURSING NOTE Preop nurse OR prep note Inpatient nurse: Tutu Notified unit nurse to complete pre-op checklist. IV Access: 20g left forearm- infusing Site marked and verified (if indicated):YES Anesthesia consent complete: no Surgical consent complete: Yes Labs: Covid- neg FS 202 @0600, PT/INR 1.4 and 16.8, RBC 3.98, H&H 12.1 and 35.3, Na 134, K3.1, chloride 94, creat 0.59. BUN 6 Last Void: 1030 Last food: 2100 last liquid: 0930 Belongings: Glasses will stay in pt room, no dentures etc Hardware/Pacemaker: no Pre Op medication plan established with Anesthesia ( if applicable): cefzol ordered. Has scheduled abx on floor also. Please hold victoria prior to surgery. Internal Control Charge Nurse: [phone] OR nurse will call to floor if further report is needed. Other issues identified: Diamond Cedillo is contact @ [phone] In coordination with inpatient nurse, this patient and chart has been reviewed for OR readiness. Pre Op PIC Nurse [phone] * OR Surgeon - Virgilio Ramirez MD - 10/05/2019 1711 EDT OPERATIVE REPORT SERVICE DATE: 10/05/19 SURGEON: Virgilio Ramirez MD ROLLER GOLD LEAF: Sachin Castle MD; Hayes Kaplan MD PREOPERATIVE DIAGNOSIS: Right diabetic foot infection, second and third metatarsal osteomyelitis POSTOPERATIVE DIAGNOSIS: same PROCEDURE: 1. Irrigation and debridement of skin, muscle, tendon and bone of the right foot 2. Second and third ray amputations (Metatarsals with toe) 3. Decompression and I&D of multiple deep abscesses in ankle/distal tibial, plantar, and first ray areas 4. Application of negative pressure wound therapy (<50cm2) ANESTHESIA: General ESTIMATED BLOOD LOSS: Minimal. TOURNIQUET TIME: 36 minutes. COMPLICATIONS: None. SPECIMEN: Bone culture x2, soft tissue culture x2 INDICATIONS: 58-year-old male with poorly controlled type 2 diabetes who presented on 10/04/2019 withan extensive right diabetic foot infection and advanced imaging consistent with osteomyelitis of the second and third rays. The risk and benefits of both nonoperative and operative management were discussed at length the patient, who expressed understanding wished proceed with irrigation debridement, second and third ray amputations and application of negative wound therapy. Risks include infection, neurovascular injury, need for repeat I&D and possible completion TMA or BKA. NARRATIVE: Patient underwent formal consent process with all questions answered. Patient met with surgeon and anesthesia providers and was then transported to the operative suite where a WHO 1 checklist was performed. The patient was placed in the supine position securely on the operative table with all bony prominences well padded. The patient underwent anesthesia. A pneumatic tourniquet was placed on the right thigh. The right lower extremity was prepped and draped in the standard sterile fashion, and prior to the start of surgery a WHO 2 checklist was performed. The right lower extremity was elevated for at least 120 seconds and the pneumatic tourniquet was inflated to 275 mmHg. An incision was made circumferentially around the necrotic soft tissue centered over the second ray extending proximally to the tarsometatarsal joint and then plantarly just proximal to the circular ulceration over the second metatarsal head. Necrotic and nonviable soft tissue, muscle and tendon were debrided with curette, rongeur until the second metatarsal was exposed. Decision was then made to perform a second ray amputationapproximately 1.5 cm distal to the TMT joint. 1/2 inch sagittal saw was then used to complete the amputation at that site. The second phalanx and second metatarsal bone were sent to the lab for Gram stain and culture. Attention was then turned to resuming soft tissue debridement, as there was undermining evident over the dorsum of the first metatarsal extending to the medial aspect as well as almost circumferential necrosis around the third metatarsal. After debridement was performed on the third metatarsal, there is minimal soft tissue left. MRI demonstrated osteomyelitis of the third metatarsal head. Therefore, decision was made to perform a third ray amputation in addition to the second.The sagittal saw was again used to perform a bone cut approximately 1.5 cm distal to the TMT joint.There was viable, healthier appearing tissue present surrounding the fourth metatarsal. Due to purulence draining from the dorsal and proximal aspect of the wound, our incision was extended proximally over the midfoot, decompressing approximately 5 to 10 cc of purulence. The plantar aspect of the wound was then inspected, as there was a soft tissue fluctuant collection at the proximal aspect of her incision with expressible purulence. We then extended our incision on the plantar surface of the foot and expressed an additional 5 to 10 cc of purulent drainage. We then proceeded circumferentially to continue our debridement of the necrotic, nonviable muscle, tendon and skin around the wound until there was healthy appearing tissue. The wound was then thoroughly irrigated with 9 L of sterile n ormal saline through TUR tubing. The tourniquet was then let down to 36 minutes and hemostasis was achieved. A medium size wound VAC was then applied (surface area less than 50 cm??), and adequate seal was achieved. The foot was then dressed with Kerlix. The patient was awakened from anesthesia and transferred to PACU in good condition per anesthesia records. Dr. Ramirez was present and scrubbed for the entirety of the procedure. Sachin Castle MD 10/06/2019 5:10 documented in this encounter ED Notes * Catia Julian - 10/04/2019 1206 EDT 12 Lead EKG Performed by CATIA JULIAN and shown to Makeda Padron MD;*. * Edson Diaz RN - 10/04/2019 1146 EDT Pt returned from MRI at this time; appears in NAD, breathing even and unlabored. * Edson Diaz RN - 10/04/2019 1146 EDT Attempted to call report * Jarett Astudillo MD - 10/04/2019 0310 EDT Assumed Care of Patient Per Sign Out: Jeff Narvaez is a 58 y.o. male with a history of T2DM with neuropathy who presents to the ED for a wound check. He reports a chronic ulceration to the second digit of the right foot that recently ruptured and became increasingly infected. Labs showed leukocytosis. Imaging was concerning for osteomyelitis. Orthopedics was consulted and agreed to evaluate the patient. Follow-up: 0301 - Patient was evaluated by Orthopedics who felt the patient would benefit from admission to Medicine with Orthopedics consulting. 0330 - Internal Medicine was contacted for admission. 0411 - Internal Medicine evaluated the patient and was concerned the patient will required urgent operative management, will discuss with Orthopedics now. 0637 - Patient was re-evaluated by Orthopedics who agreed the patient should be admitted to their service. Patient was admitted to Orthopaedic Surgery under the care of Dr. Ramirez. Final diagnoses: Osteomyelitis (HCC-CMS) Osteomyelitis, unspecified site, unspecified type (HCC-CMS) This documentation is recorded by Leslie Singh acting as Scribe under the direction and presenceof Jarett Astudillo MD. Jarett Astudillo MD: I personally performed the services recorded by the scribe in my presence. Iconfirm the scribe's documentation has been reviewed by me to accurately and completely record my work, treatment, procedures, and medical decision making. * Norman Goff RN - 10/03/2019 2330 EDT Per MD Padron, hold IV ABx until Ortho cultures foot * Makeda Padron MD - 10/03/2019 2213 EDT This patient received an evaluation and medical screening exam for emergent medical conditions at the [facility] on 10/03/2019 Scribe attestation: This documentation is recorded by Tonia Ruby acting as Scribe under the direction and presence of Makeda Padron MD. Makeda Padron MD: I personally performed the services recorded by the scribe in my presence.I confirm the scribe's documentation has been reviewed by me to accurately and completely record mywork, treatment, procedures, and medical decision making. Chief Complaint Wound check HPI Jeff Narvaez is a 58 y.o. male with PMH including T2DM with neuropathy, osteomyelitis of phalanx of right foot, craniopharyngioma with memory loss who presents to the ED for wound check. The patientstates that he has a chronic ulceration to the 2nd digit of the right foot that recently ruptured. He now has new erythema and ulceration to the dorsal foot. The patient was not concerned about his condition until tonight when his saw the wound and decided that he needs to come to the ED. History was provided by: patient, medical records Patient's pertinent PMH, FH, SH were reviewed and updated PRN. ROS A 10 point review of systems has been performed and is otherwise negative except as noted in the HPI. Physical Exam Vital Signs Vitals Reassessment?: Yes Temp: 36.4 ??C (97.6 ??F) Temp src: Oral Pulse: (!) 106 Resp: 18 SpO2: 98 % BP: 133/72 BP Device: BP Machine BP Patient Position: Sitting BP Cuff Location: Left arm O2 Device: None (Room air) Nursing notes and vital signs were reviewed. Constitutional: Well appearing in no acute distress Eyes: Pupils equal and reactive to light, no scleral icterus Mouth: Moist oral mucosa without apparent lesions Neck: Full ROM, no cervical LAD Heart: RRR. Strong peripheral pulses Lungs: No Respiratory distress Abdomen: Soft, nontender, nondistended Skin: No overt rashes on exposed skin Extremities: Moving spontaneously, warm and well perfused. No unilateral leg swelling. Malodorous foot with significant erythema, swelling, and desquamation of the dorsal right foot, the right secondtoe has a black eschar and an open wound, open wound on the plantar foot Neuro: Grossly neurologically intact with normal speech Psych: No agitation or overt thought disorder Laboratory Results Labs Reviewed ELECTROLYTES - Abnormal Result Value Status Sodium 130 (*) Final Potassium 3.4 (*) Final Chloride 87 (*) Final CO2 Total 29 Final GLUCOSE, SERUM - Abnormal Glucose 357 (*) Final COMPLETE BLOOD COUNT AND DIFFERENTIAL - Abnormal WBC 15.23 (*) Final RBC 4.18 (*) Final Hemoglobin 12.6 (*) Final HCT 36.5 (*) Final MCV 87 Final MCH 30.1 Final MCHC 34.5 Final RDW-CV 12.0 Final RDW-SD 38.6 Final PLT 274 Final MPV 10.5 Final Neutrophils 82.7 Final Lymphocytes 9.4 Final Monocytes 6.2 Final Eosinophils 0.3 Final Basophils 0.2 Final Immature Grans 1.2 Final Absolute Neutrophils 12.61 (*) Final Absolute Lymphocytes 1.43 Final Absolute Monocytes 0.94 (*) Final Absolute Eosinophils 0.04 Final Absolute Basophils 0.03 Final Absolute Immature Grans 0.18 (*) Final Type of Differential: Auto Final POCT GLUCOSE, INTERFACED - Abnormal Glucose, POC 376 (*) Final Tech ID [id number] Final HN LAB POC COMMENT (GLUCOSE) Test Performed by Nursing Services Final POCT URINE DIPSTICK, CLINITEK - Abnormal Color, UA Yellow Final Clarity, UA Clear Final Glucose, UA 2+ (*) Final Bilirubin, UA 1+ (*) Final Ketones, UA 1+ (*) Final Specific [place], Urine 1.015 Final Blood, UA Negative Final pH, UA 6.0 Final Protein, UA 1+ (*) Final Urobilinogen, UA 0.2 Final Nitrite, UA Negative Final Leuk Esterase Negative Final Tech ID [id number] Final HN LAB COMMENT (CLINITEK, UR) Test performed at Emergency Department Final BUN - Normal BUN 22 Final CREATININE - Normal Creatinine 0.73 Final eGFR 103 Final LACTIC ACID - Normal Lactic Acid 1.2 Final BACTERIAL CULTURE, BLOOD BACTERIAL CULTURE, BLOOD COVID-19 TESTING COVID-19 TEST [facility] LAB PCR POCT URINE CLINITEK (DIPSTICK) - DOES NOT REFLEX Narrative: The following orders were created for panel order POCT URINE CLINITEK (DIPSTICK) - DOES NOT REFLEX. Procedure Abnormality Status --------- ------ POCT URINE DIPSTICK, CLI...[[id number]] Abnormal Final result POCT CSN BARCODE URINE D...[[id number]] Final result Please view results for these tests on the individual orders. HOLD BLUE TOP Hold Hold Final POCT CSN BARCODE URINE DIPSTICK Hold Hold Final BLOOD BANK HOLD Hold BB Spec will exp at 23:59, 3 days from collect date Final Data Interpretation Imaging obtained was reviewed and independently interpreted: x-ray of the right foot significant for newly increased lucency of the 2nd proximal phalanx as well as the tip of the 2nd metatarsal in a region of extensive subcutaneous emphysema as well as soft tissue swelling. These findings are concerning for osteomyelitis. Laboratory results independently reviewed, significant for: hyperglycemia at 376, leukocytosis to 15.23 Procedures Procedures None ED Course/Medical Decision Making A medical screening was performed. The patient is a 58 y.o. male with a history of T2DM with neuropathy who presents to the ED for a wound check. He reports a chronic ulceration to the second digit of the right foot that recently ruptured and became increasingly infected. Physical exam was significant for a malodorous foot with significant erythema, edema, and desquamation. Open wound on the plantar foot and right second toe. Differential diagnosis includes but is not limited to Osteomyelitis vs diabetic foot wound, considered sepsis. The patient arrived to the ED afebrile and in no respiratory distress. Labs obtained showed leukocytosis and were otherwise reassuring. Imaging obtained was concerning for osteomyelitis. These findings were discussed with Orthopedics who agreed to evaluate the patient in the ED. The patient was signed out to Yon Astudillo MD with Orthopedic evaluation pending. Please refer to note provided by Dr. Astudillo for details of further care. While under my care in the Emergency Department, the patient's pain was managed to an adequate level weighing risk vs. benefit of medication. Clinical Impression Final diagnoses: Osteomyelitis ([facility]) Osteomyelitis, unspecified site, unspecified type ([facility]) Disposition Signed out (see progress Notes) The patient's pain was managed to an adequate level weighing risk vs. benefit of further medications. Any further pain treatment will be at the discretion of the provider following up with the patient based on their clinical assessment. * Norman Goff RN - 10/03/2019 2150 EDT Pt roomed to ED-04 Pt Poor historian, but reports he has a history of diabetic foot ulcer dating back to 2017. Pt reports he has part of his second Right toe removed d/t the ulcer int he past. Pt reports ulcer had been getting better until early March. Pt reports There has been increased swellingrecently w/ worsening drainage. documented in this encounter Miscellaneous Notes * Plan of Care - Rina Rosado RN - 10/15/2019 1509 EDT Data: Pt was noted with discharge order to R Action: Belongings packed, sent with pt and report called to R Response: Pt left the unit at 1450 to get the Cab at 1500 RINA ROSADO RN 10/15/2019 16:54 * Plan of Care - Nino Forbes RN - 10/15/2019 0025 EDT Data: Pt's goal is to have a restful night. Action: Clustered care, promoted rest. Rest light turned on. Response: Pt resting, no s/s of distress. COVID-19 swab performed and sent specimen to the lab, awaiting result, discharging to [facility] today. NINO FORBES RN 10/15/2019 0:25 * Plan of Care - Rina Rosado RN - 10/14/2019 1337 EDT Data: Pt is A&OX3, pod#5, s/p Right foot transmetatarsal amputation, wound vac placement, dressing & wound vac. Intact, pain rated 7/10 beginning this shift, goal pain management Action: Medicated pt for pain per Mar, assisted OOB to bathroom/to chair & promoted rest Response: Pt is resting at this time, call larson within reach RINA ROSADO RN 10/14/2019 13:37 * Plan of Care - Nino Forbes RN - 10/14/2019 0252 EDT Nursing Pain Note D: At 0045 patient c/o 10/10. Pain located in the righ Foot. Patient described throbbing. Pt tearful and moaning, repeatedly verbalized It hurts so bad! A: Patient receiving scheduled and PRN medications. See MAR. Provided the following non-pharmacologic interventions: repositioning, emotional support, distraction and rest. R: Patient resting, no s/s of distress. Will continue to monitor and adjust interventions as necessary. NINO FORBES RN 10/14/2019 2:53 * Plan of Care - Daljit Ventura RN - 10/13/2019 2223 EDT Data: Pt is POD #4 s/p transmetatarsal amputation on the R foot. R foot with dry dressing, Kacey wrap. Pt endorses pain up to 7/10 in R foot. Pt voiding in urinal, OOB to BR with CG assist and FWW. Pt receiving IV abx q6h. Action: Pt medicated for pain as ordered; see MAR. Wound vac placed on R foot by provider this shift, set at 125 mmHg. FSBG checked ac and hs. Pt maintained NWB on RLE. Pt assisted with repositioningfor comfort. Hourly checks completed. Response: Pt reports relief of pain with medications and repositioning. Currently resting in bed, call light in reach. Will continue to monitor. DALJIT VENTURA RN 10/13/2019 22:24 * Plan of Care - Rina Rosado RN - 10/13/2019 1453 EDT Data: Pt is a&ox3, s/p Right foot transmetatarsal amputation, dressing c/d/I, minimal pain rated 5-6/10 Action: Medicated pt per Mar&allowed rest Response: Pt is resting at this time, call larson within reach RINA ROSADO RN 10/13/2019 14:53 * Plan of Care - Bravo Figueroa RN - 10/13/2019 0250 EDT Data: Pt POD 4, s/p Right foot transmetatarsal . Dressing clean, dry and intact. Pt rating pain 7/10. Goal to manage pain and sleep. Action: Pt medicated with prn/scheduled pain medications. Clustered care to promote rest. Assisted with reposition. Response: Pt sleeping comfortably. Voiding in urinal. BP 116/68 (BP Cuff Location: Right arm, BP Patient Position: Sitting) Pulse 70 Temp 36.4 ??C (97.5 ??F) (Tympanic) Resp 17 Ht 188 cm (74) Wt (!) 110.1 kg (242 lb 11.6 oz) SpO2 96% BMI 31.16 kg/m?? Will continue to monitor. BRAVO FIGUEROA RN 10/13/2019 2:50 * Plan of Care - TomDiamondGonzalez Jonny - 10/12/2019 1408 EDT Data: Pt s/p#3 from Right foot transmetatarsal amputation, dressing cdi, rates pain of 5-8/10 this shift, goal is to ambulate pt with restriction of NWB RLE. Action: Administered scheduled/prn pain medications. Pt performed his AC FS today and ambulated with 1 assist to/from bathroom. Benefits greatly from constant reminder of NWB RLE and walking through the process. Response: Call larson in reach. Will ctm. BP 113/71 (BP Cuff Location: Right arm, BP Patient Position: Sitting) Pulse 89 Temp 36.7 ??C (98 ??F) (Tympanic) Resp 16 Ht 188 cm (74) Wt (!) 110.1kg (242 lb 11.6 oz) SpO2 99% BMI 31.16 kg/m?? * Plan of Care - Sherry Fish RN - 10/12/2019 0141 EDT Problem: Daily Care Plan Goals Goal: Care Plan Documentation Outcome: Met This Shift Flowsheets (Taken 10/11/20192119) Area of Focus: Pain/ Comfort Goal This Shift: pain to be tolerable this shift Data: Pt POD #2 s/p R foot transmetatarsal amputation. A&Ox3, forgetful/short term memory loss.Dressing to RLE C/D/I, +post tibial pulse. Pt repositioning self in bed with use of grab bars. Voiding in the urinal. Highest pain complaint 7/10 this shift. Action: Administered scheduled medications per MAR and PRN oxycodone, tylenol, and tramadol for pain. Maintained elevation of RLE. Assisted pt to transfer from the chair back to bed at the start of shift. Clustered care and decreased stimuli to promote rest. Response: Pt tolerating current pain regimen - lowest pain rating 5/10, pt requesting not to be woken when sleeping, he will use the call larson for any pain needs. Pt continuing to need cueing and demonstration prior to transfer - tolerated well after explanation. Call larson within reach, pt able to make needs known. Hourly checks maintained, will intervene as necessary for pain interventions. SHERRY FISH RN 10/12/2019 1:41 * Plan of Care - Jonny Walsh - 10/11/2019 5183 EDT Data: Pt s/p#2 from Right foot transmetatarsal amputation, dressing cdi, rates pain of 5-8/10 this shift, goal is to have pt get oob for meals. Action: Administered scheduled/prn pain medications. OOB with 1 assist w/FWW. Explained/demonstrated how to stand/pivot to recliner. Response: Pt able to demonstrate back/tolerated this well. Will ctm. JONNY WALSH RN 10/11/2019 18:26 * Plan of Care - Sherry Fish RN - 10/11/2019 0032 EDT Problem: Daily Care Plan Goals Goal: Care Plan Documentation Outcome: Met This Shift Flowsheets (Taken 10/10/20193) Area of Focus: Pain/ Comfort Goal This Shift: pain will be tolerable Data: Pt POD #2 s/p R foot transmetatarsal amputation. A&Ox3, forgetful/short term memory loss.Dressing to RLE C/D/I. Pt repositioning self in bed with use of grab bars. Voiding in the urinal. Highest pain complaint 7/10 this shift. Action: Elevated RLE on pillows. Administered scheduled medications per MAR and PRN tylenol, tramadol, and oxycodone for pain management. Clustered care, decreased stimuli to promote rest. Response: Pt tolerating current pain management - pt requesting to sleep this shift and he will usethe call larson for pain management needs. Pain controlled and down to 5/10. Call larson within reach, pt demonstrating ability to use to make needs known. Hourly checks maintained, will intervene as necessary throughout the shift for pain management. SHERRY FISH RN 10/11/2019 0:32 * Plan of Care - Dylan Sevilla RN - 10/10/2019 1446 EDT Problem: Daily Care Plan Goals Goal: Care Plan Documentation Outcome: Met This Shift Flowsheets Taken 10/10/2019 1443 Area of Focus: Pain/ Comfort Taken 10/10/2019 0827 Goal This Shift: manage pain Note: Data: Pt POD #1 s/p Right TMA. Rating pain @ 8/10 post PT session. DRSG C/D/I. Palpable post tibialpulse. Voiding. +Bm today. Ambulating oob with CG assist. Action: Administered scheduled and prn medications (see MAR). Other non- pharmacological pain interventions include: elevation, distraction, and rest. Response: Pt states pain is well controlled @ 5/10. Will continue to monitor and assist. DYLAN SEVILLA RN 10/10/2019 14:43 * Plan of Care - Shi Romero RN - 10/10/2019 0502 EDT Data: Resumed care of pt at 2330. A/Ox3, forgetful/short term memory loss. Pleasant, resting comfortably. VSS. RLE drsg intact w/ small area of shadowing. C/o moderate pain to RLE. Voiding in urinal.1x medium, soft BM this shift. Tolerating PO intake. Repositioning self in bed w/ assistance. Action: RLE elevated onto pillows. ATC Tylenol/PRN Oxy per MAR w/ + effect. IV abx continued. Care clustered, sleep promoted. Response: Pt sleeping between care. All safety precautions maintained. SHI ROMERO RN 10/10/2019 5:03 * Brief Op Note - Angelina Gonzales DPM - 10/09/2019 0058 EDT Brief Post-Op Note Date of Surgery: 10/09/2019 Surgeon: Angelina Gonzales DPM Assistants: None Pre-Op Diagnosis: Right foot abscess, gangrene Post-Op Diagnosis: Same Procedure(s): Right foot transmetatarsal amputation Findings: Abscess dorsally, started at the 2/3rd metatarsal and extending laterally and to the midfoot, with purulence and non viable tissue here. No proximal extension to ankle. Small amount of non viable tissue plantarly, at area of prior resection. Closed plantarly, packed with wet to dry dorsally. Tolerated procedure and anesthesia well. See op report for full details. Anesthesia Type: Local and IV Sedation Estimated Blood Loss: Unless otherwise noted, there was no blood loss, specimens removed, cultures obtained, or drains retained. The estimated blood loss was less than 100 mL Specimens/Cultures: 1. 2nd metatarsal margin- pathology 2. 3rd metatarsal margin- pathology 3. Forefoot (1st, 4th, 5th rays)- pathology Drains/Packs: Dorsal forefoot/midfoot packed open with wet to dry 4 x 4s. Complications: None Disposition and Condition: Jeff Narvaez was sent to PACU in Stable condition. Plan: -Non weight bearing to right foot. -Elevate right foot. -Continue IV antibiotics per ID recs. Pathology sent as above. -Will change dressing in am to evaluate for viability of remaining tissue. Angelina Gonzales DPM 10/09/2019 17:19 * Plan of Care - Tutu Velazquez RN - 10/09/2019 1400 EDT Problem: Daily Care Plan Goals Goal: Care Plan Documentation Flowsheets (Taken 10/09/2019 0758) Area of Focus: Communication Goal This Shift: Patient will be ready for OR Note: Data: Patient scheduled for OR today, Right TMA with MD Christian. Action: Ensured patient NPO for procedure. Completed pre-op checklist and collaborated with inpatient preop RN. Maintained IVF. Educated patient on pre-op process. Called report to JARVIS Staley in pre-op. Response: Patient left unit for pre-op with patient support. Patient remains ready for OR. TUTU VELAZQUEZ RN 10/09/2019 13:58 * Plan of Care - Luz Marina Grissom RN - 10/09/2019 0625 EDT Problem: Daily Care Plan Goals Goal: Care Plan Documentation Outcome: Ongoing Flowsheets (Taken 10/08/2019 2331) Area of Focus: Pain/ Comfort Goal This Shift: Pt's pain will be managed Data: Assumed care of patient at 2300. Pt is POD 3 s/p I&D and 2nd, 3rd ray amp on R foot. Pt is currently NPO for planned TMA on R foot on 10/08. Pt is A&Ox3 with occasional forgetfulness, VSSon RA. R foot dsg C/D/I with old drainage noted. Rates foot pain 7/10 overnight. Action: Pt medicated per MAY. Clustered care to promote rest. Hourly rounding for safety. NPO status maintained. Educated pt fall prevention. Provided reorientation as needed. Per Rainer Cavazos MD pt does not need additional COVID swab. Response: Pt currently resting in bed. No needs stated at this time. Pt repositioned self overnight. RN will continue to monitor. * Plan of Care - Karishma Ayoub RN - 10/08/2019 0024 EDT Data: Pt. A/Ox3 but forgetful and can be overwhelmed easily. Action: Meds given per MAY + Oxycodone Response: Pt. Resting in bed with eyes closed. KARISHMA AYOUB RN 10/08/2019 22:44 * Plan of Care - Caren Conway RN - 10/08/20192006 EDT Problem: Daily Care Plan Goals Goal: Care Plan Documentation Outcome: Ongoing Data: Patient complained of increased pain to RLE/foot area, 5/10. Action: Patient medicated with Robaxin 750 mg and Tylenol 1000 mg scheduled, and Tramadol 50 mg PO.Patient resting comfortable, rating pain a 3/10. Response: No further issues noted. Call light within reach. Safety maintained. CAREN CONWAY RN 10/08/2019 20:07 * Plan of Care - Rainer Cavazos MD - 10/08/2019 3888 EDT Pre Op Checklist - Consent completed - Will sign extremity tomorrow in AM - NPO at midnight (ok to give sips of water with mediations) - Insert PIV panel ordered (20 gauge or larger) - Case booked Labs: - CBC & Coags ordered - COVID Test Ordered - Type and Screen, ABO Medications: - mIVF ordered - Pre-operative antibiotics ordered - Anticoagulation/Anti-platelet discontinued (aspirin ok to continue) - Insulin (adjust Q6 with NPO status / adjust long acting if appropriate) - ARBS/KACEY medications discontinued (if necessary) * Plan of Care - Bertram Schmid RN - 10/08/2019 0618 EDT Problem: Daily Care Plan Goals Goal: Care Plan Documentation Outcome: Ongoing Flowsheets (Taken 10/07/20192029) Area of Focus: Pain/ Comfort Goal This Shift: pt reports pain is decreased/controlled Data: pt s/p R 2nd and 3rd toe amputation.moderate drainage on dressing. Ortho changed dressing in AM. Complains of pain ranging from 5-7/10. Action: Oxycodone and tylenol given prn. Pt appropriately calling. Hourly rounding. Response: pt states that he was able to get some restful sleep. Will continue to monitor. BERTRAM SCHMID RN 10/08/2019 6:18 * Plan of Care - Milind Walshzin - 10/07/2019 1849 EDT Data: Pt s/p#2 from I&D of the right foot, second and third ray amputations, wound vac application. WV was removed this AM at bedside, A&Ox3, but forgetful d/t prior hx. Action: Administered scheduled medications, encouraged elevation of RLE and reiterated the importance of following NWB to RLE when ambulating. Pt is 1 assist oob with FWW. Bed alarmed for safety. Response: Will ctm. BP 131/75 (BP Cuff Location: Right arm, BP Patient Position: Semi fowlers) Pulse 89 Temp 36.2 ??C (97.2 ??F) (Tympanic) Resp 18 Ht 188 cm (74) Wt (!) 110.1 kg (242 lb 11.6 oz) SpO2 96% BMI 31.16 kg/m?? JONNY WALSH RN 10/07/2019 18:49 * Plan of Care - Jp Swanson RN - 10/07/2019 0158 EDT Problem: Daily Care Plan Goals Goal: Care Plan Documentation Outcome: Met This Shift Flowsheets (Taken 10/06/20192002) Area of Focus: Pain/ Comfort Goal This Shift: Sleep comfortably Note: Data: Pt POD #1 s/p Irrigation debridement of the right foot, second and third ray amputation, wound VAC application. Rating pain @ 8/10 in right foot. Describes pain as a burning sensation. WV to suction. DRSG C/D/I. Voiding. +flatus/-bm. Pt OOB/standing with partial assistance utilizing front wheeled walker. .Blood pressure 123/64, pulse 89, temperature 35.8 ??C (96.4 ??F), temperature source Tympanic, resp. rate 18, height 188 cm (74), weight (!) 110.1 kg (242 lb 11.6 oz), SpO2 92 %. Action: Medicated with scheduled meds and Oxy , see MAR. Assistance with ambulation. Other non-pharmacological pain interventions include: elevation, distraction, and rest. Care clustered and minimized distractions . Response: Pt tolerated interventions, sleeping with RR WNL. Call larson in reach and will continue tomonitor and assist. JP SWANSON RN 10/07/2019 1:54 * Plan of Care - Dylan Sevilla RN - 10/06/2019 1443 EDT Problem: Daily Care Plan Goals Goal: Care Plan Documentation Outcome: Met This Shift Flowsheets (Taken 10/06/2019999) Goal This Shift: manage pain/mobilize pt Note: Data: Pt POD #1 s/p Irrigation debridement of the right foot, second and third ray amputation, wound VAC application. Rating pain @ 8/10 in superior aspect of right foot. Describes pain as a burning sensation. WV to suction. DRSG C/D/I. Voiding. +flatus/-bm. Ambulating oob to chair with partial assistance utilizing front wheeled walker. Action: Administered scheduled and prn medications (see MAR). Reinforced education on NWB status inRLE. Provided assistance with ambulation. Other non- pharmacological pain interventions include: elevation, distraction, and rest. Response: Pt sleeping with RR WNL. Tolerating ambulation fairly well. Will continue to monitor and assist. DYLAN SEVILLA RN 10/06/2019 14:37 * Plan of Care - Jp Swanson RN - 10/06/2019 0143 EDT Problem: Daily Care Plan Goals Goal: Care Plan Documentation Outcome: Met This Shift Flowsheets (Taken 10/05/2019 191) Area of Focus: GI//Elimination Goal This Shift: Pt will void Note: Data: Pt day of right second toe amp, wv intact with bloody drainage. Pain 10/12 and pt due tovoid.Blood pressure 125/72, pulse 89, temperature 36.8 ??C (98.2 ??F), temperature source Tympanic,resp. rate 17, height 188 cm (74), weight (!) 110.1 kg (242 lb 11.6 oz), SpO2 96 %. Action: Medicated with scheduled meds and PRN Pain meds,see MAR. Assisted with standing at bedside and pt voided adequate amount. Care clustered and minimised distractions. Response: Pt tolerated interventions , voiding and slept well.Call larson in reach and will CTM . JP SWANSON RN 10/06/2019 1:35 * Plan of Care - Dylan Sevilla RN - 10/05/2019 1816 EDT Problem: Daily Care Plan Goals Goal: Care Plan Documentation Outcome: Met This Shift Flowsheets (Taken 10/04/20191956 by Venessa Sweeney RN) Goal This Shift: adequate pain control Note: Data: Pt arrived on unit from PACU around 1530. A&OX3. BP 96/65 (BP Cuff Location: Left arm, BPPatient Position: Semi fowlers) Pulse 89 Temp 35.8 ??C (96.4 ??F) (Tympanic) Resp 18 Ht 188cm (74) Wt (!) 110.1 kg (242 lb 11.6 oz) SpO2 97% BMI 31.16 kg/m?? Green sepsis alert received. Tearful, rating pain @ 10/10 in right foot. Describes pain sensation as pressure. Able to wiggle toes, warm to touch, palpable PT pulse. WV to suction @ 125. Lung sounds clear. Bowel sounds active. Action: Notified MD Cavazos concerning Green Sepsis Alert and pain. New orders received. Administered scheduled and prn medications (see MAR). Other non- pharmacological pain interventions include: elevation, repositioning, and emotional support. Response: Upon pain reassessment, pt found sleeping with RR WNL. Will continue to monitor and adjust interventions as necessary. 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 NWB RLE, AAT Ambulation for DVT ppx Vancomycin, Flagyl, cefepime Regular diet PT eval Multimodal pain control Dispo planning Closed with wound vac Sachin Castle MD 10/05/2019 11:18 [id number] * Plan of Care - Venessa Sweeney RN - 10/05/2019 0029 EDT Problem: Daily Care Plan Goals Goal: Care Plan Documentation Outcome: Met This Shift Flowsheets Taken 10/05/2019 0029 Area of Focus: Pain/ Comfort Taken 10/04/20191956 Goal This Shift: adequate pain control Data: Pt admitted with R foot jesicao. at bedside changing dressing beginning of shift. Tele NSR. Orders received for CC diet. Pt verbalized pain in R foot, goal is adequate pain control. Action: Medications including PRNs administered per eMAR. FS downtrending, see flowsheets. NPO at midnight. Response: Anticipate OR in AM. Pt currently resting comfortably in bed. Will continue to monitor. VENESSA SWEENEY RN 10/05/2019 0:29 * Plan of Care - Sachin Castle MD - 10/04/20192021 EDT Name:Jeff Narvaez :1960 Orthopaedics Brief: To OR tomorrow am for right foot I&D, second ray amputation Pre Op Checklist - Consent completed - Extremity signed - NPO at midnight (ok to give sips of water with mediations) - Insert PIV panel ordered (20 gauge or larger) - Case booked Labs: - CBC & Coags ordered - COVID Test Ordered - Type and Screen, ABO - UPT (female of child bearing age, 12-55) Medications: - mIVF ordered - Pre-operative antibiotics ordered - Anticoagulation/Anti-platelet discontinued (aspirin ok to continue) - Insulin (adjust Q6 with NPO status / adjust long acting if appropriate) - ARBS/KACEY medications discontinued (if necessary) Sachin Castle MD 10/04/19 20:22 * Plan of Care - Dylan Sevilla RN - 10/04/2019 1651 EDT Problem: Daily Care Plan Goals Goal: Care Plan Documentation Note: Data: Pt arrived on unit from ED around 1245. A&OX3. 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 BP 121/79 (BP Cuff Location: Right arm, BP Patient Position: Semi fowlers) Pulse 89 Temp 36.9 ??C (98.5 ??F) (Tympanic) Resp 18 Ht 188 cm (74) Wt (!) 110.1 kg (242 lb 11.6 oz) SpO2 97% BMI 31.16 kg/m?? Rating pain @ 7/10 in right foot. GRICEL to assessR foot d/t DRSG. DRSG intact with malodorous, purulent drainage. RLE swelling with erythema in jo. Elevated on two pillows. Class III tele in NSR. Lung sounds clear. Bowel sounds active. Voiding inurinal. Action: Oriented pt to room and unit. Educated slot machine floor person larson, phone, and bed control use. Administered scheduled and prn medications (see MAR). Response: Pt verbalized and demonstrated understanding of education provided. Currently sleeping with RR WNL. Will continue to monitor and assist. DYLAN SEVILLA RN 10/04/2019 16:42 documented in this encounter Plan of Treatment Scheduled Orders Name Type Priority Associated Diagnoses Orde r Schedule COMPLETE BLOOD COUNT AND DIFFERENTIAL Lab Routine Acute osteomyelitis of right ankle or foot ([facility]) Ordered: 10/15/2019 BUN Lab Routine Acute osteomyelitis of right ankle or foot ([facility]) Ordered: 10/15/2019 CREATININE Lab Routine Acute osteomyelitis of right ankle or foot ([facility]) Ordered: 10/15/2019 SED. RATE:WESTERGREN Lab Routine Acute osteomyelitis of right ankle or foot ([facility]) Ordered: 10/15/2019 C REACTIVE PROTEIN Lab Routine Acute osteomyelitis of right ankle or foot ([facility]) Ordered: 10/15/2019 documented as of this encounter Procedures Procedure Name Priority Date/Time Associated Diagnosis Comments IMPLANT RECORD - SCANNED 10/22/2019 11:21 EDT ECG REPORT - SCANNED 10/20/2019 10:08 EDT POCT GLUCOSE, INTERFACED Routine 10/15/2019 13:17 EDT POCT GLUCOSE, INTERFACED Routine 10/15/2019 9:26 EDT ZZCOVID-19 TEST [facility] PCR Today 10/14/2019 21:04 EDT COVID-19 TESTING Routine 10/14/2019 21:04 EDT POCT GLUCOSE, INTERFACED Routine 10/14/2019 20:52 EDT POCT GLUCOSE, INTERFACED Routine 10/14/2019 17:37 EDT POCT GLUCOSE, INTERFACED Routine 10/14/2019 12:55 EDT POCT GLUCOSE, INTERFACED Routine 10/14/2019 7:53 EDT POCT GLUCOSE, INTERFACED Routine 10/13/2019 21:45 EDT POCT GLUCOSE, INTERFACED Routine 10/13/2019 19:14 EDT POCT GLUCOSE, INTERFACED Routine 10/13/2019 11:59 EDT POCT GLUCOSE, INTERFACED Routine 10/13/2019 7:11 EDT POCT GLUCOSE, INTERFACED Routine 10/12/2019 21:10 EDT POCT GLUCOSE, INTERFACED Routine 10/12/2019 17:11 EDT POCT GLUCOSE, INTERFACED Routine 10/12/2019 12:06 EDT POCT GLUCOSE, INTERFACED Routine 10/12/2019 7:27 EDT POCT GLUCOSE, INTERFACED Routine 10/11/2019 21:03 EDT POCT GLUCOSE, INTERFACED Routine 10/11/2019 17:58 EDT POCT GLUCOSE, INTERFACED Routine 10/11/2019 13:39 EDT POCT GLUCOSE, INTERFACED Routine 10/11/2019 9:39 EDT POCT GLUCOSE, INTERFACED Routine 10/11/2019 0:15 EDT POCT GLUCOSE, INTERFACED Routine 10/10/2019 21:03 EDT POCT GLUCOSE, INTERFACED Routine 10/10/2019 18:15 EDT POCT GLUCOSE, INTERFACED Routine 10/10/2019 13:20 EDT POCT GLUCOSE, INTERFACED Routine 10/10/2019 7:37 EDT CREATININE Routine 10/10/2019 6:32 EDT POCT GLUCOSE, INTERFACED Routine 10/09/2019 21:52 EDT POCT GLUCOSE, INTERFACED Routine 10/09/2019 17:16 EDT SURGICAL PATHOLOGY Routine 10/09/2019 16:11 EDT AMPUTATION, FOOT, TRANSMETATARSAL 10/09/2019 15:07 EDT Acute osteomyelitis of right ankle or foot ([facility]) POCT GLUCOSE, INTERFACED Routine 10/09/2019 14:41 EDT POCT GLUCOSE, INTERFACED Routine 10/09/2019 13:24 EDT POCT GLUCOSE, INTERFACED Routine 10/09/2019 9:29 EDT POCT GLUCOSE, INTERFACED Routine 10/09/2019 5:57 EDT VANCOMYCIN TROUGH Routine 10/09/2019 3:31 EDT POCT GLUCOSE, INTERFACED Routine 10/08/2019 21:16 EDT POCT GLUCOSE, INTERFACED Routine 10/08/2019 18:01 EDT POCT GLUCOSE, INTERFACED Routine 10/08/2019 12:46 EDT ECG REPORT - SCANNED 10/08/2019 8:47 EDT PROTIME Routine 10/08/2019 8:26 EDT TYPE AND SCREEN Routine 10/08/2019 8:26 EDT POCT GLUCOSE, INTERFACED Routine 10/08/2019 8:19 EDT COMPLETE BLOOD COUNT Routine 10/08/2019 6:25 EDT BUN Routine 10/08/2019 6:25 EDT CREATININE Routine 10/08/2019 6:25 EDT ELECTROLYTES Routine 10/08/2019 6:25 EDT POCT GLUCOSE, INTERFACED Routine 10/07/2019 21:20 EDT POCT GLUCOSE, INTERFACED Routine 10/07/2019 18:18 EDT POCT GLUCOSE, INTERFACED Routine 10/07/2019 13:13 EDT XR FOOT RIGHT 3 OR MORE VIEWS STAT 10/07/2019 10:55 EDT POCT GLUCOSE, INTERFACED Routine 10/07/2019 9:39 EDT COMPLETE BLOOD COUNT AND DIFFERENTIAL Routine 10/07/2019 6:28 EDT BUN Routine 10/07/2019 6:28 EDT GLUCOSE, SERUM Routine 10/07/2019 6:28 EDT CREATININE Routine 10/07/2019 6:28 EDT ELECTROLYTES Routine 10/07/2019 6:28 EDT POCT GLUCOSE, INTERFACED Routine 10/06/2019 21:49 EDT POCT GLUCOSE, INTERFACED Routine 10/06/2019 19:32 EDT POCT GLUCOSE, INTERFACED Routine 10/06/2019 18:47 EDT VANCOMYCIN TROUGH Routine 10/06/2019 15:30 EDT POCT GLUCOSE, INTERFACED Routine 10/06/2019 14:03 EDT POCT GLUCOSE, INTERFACED Routine 10/06/2019 9:46 EDT SCREENING GLUCOSE Routine 10/06/2019 7:54 EDT COMPLETE BLOOD COUNT Routine 10/06/2019 7:54 EDT COMPLETE BLOOD COUNT AND DIFFERENTIAL Routine 10/06/2019 7:54 EDT BUN Routine 10/06/2019 7:54 EDT HEMOGLOBIN A1C Add-On 10/06/2019 7:54 EDT CREATININE Routine 10/06/2019 7:54 EDT ELECTROLYTES Routine 10/06/2019 7:54 EDT POCT GLUCOSE, INTERFACED Routine 10/05/2019 22:07 EDT POCT GLUCOSE, INTERFACED Routine 10/05/2019 19:11 EDT DEBRIDEMENT OF SKIN, SUBCUTANEOUS TISSUE, MUSCLE, AND BONE 10/05/2019 13:59 EDT Osteomyelitis ([facility]) Special Needs Supine, radiolucent extension, TUR tubing, 9L, ortho basic, rongeur, curettes, wound vac set EXCISION, METATARSAL BONE, HEAD, FIFTH METATARSAL, PARTIAL 10/05/2019 13:59 EDT Osteomyelitis ([facility]) Special Needs Supine, radiolucent extension, TUR tubing, 9L, ortho basic, rongeur, curettes, wound vac set ANAEROBE CULTURE/SMEAR(INC. AEROBES), OTHER Routine 10/05/2019 13:36 EDT ANAEROBE CULTURE/SMEAR(INC. AEROBES), OTHER Routine 10/05/2019 13:35 EDT ANAEROBE CULTURE/SMEAR(INC. AEROBES), OTHER Routine 10/05/2019 13:34 EDT POCT GLUCOSE, INTERFACED Routine 10/05/2019 11:03 EDT COMPLETE BLOOD COUNT AND DIFFERENTIAL Routine 10/05/2019 7:22 EDT BUN Routine 10/05/2019 7:22 EDT GLUCOSE, SERUM Routine 10/05/2019 7:22 EDT CREATININE Routine 10/05/2019 7:22 EDT ELECTROLYTES Routine 10/05/2019 7:22 EDT POCT GLUCOSE, INTERFACED Routine 10/05/2019 5:14 EDT POCT GLUCOSE, INTERFACED Routine 10/05/2019 1:45 EDT POCT GLUCOSE, INTERFACED Routine 10/04/2019 23:42 EDT POCT GLUCOSE, INTERFACED Routine 10/04/2019 22:05 EDT POCT GLUCOSE, INTERFACED Routine 10/04/2019 20:07 EDT BACTERIAL CULTURE- MRSA, GRP B [facility] ([facility] USE ONLY) Routine 10/04/2019 17:44 EDT POCT GLUCOSE, INTERFACED Routine 10/04/2019 17:28 EDT PTT Routine 10/04/2019 14:31 EDT VITAMIN D (25,[place]) Routine 10/04/2019 13:02 EDT PREALBUMIN Routine 10/04/2019 13:02 EDT PHOSPHORUS Routine 10/04/2019 13:02 EDT ALKALINE PHOSPHATASE Routine 10/04/2019 13:02 EDT MAGNESIUM Routine 10/04/2019 13:02 EDT HEMOGLOBIN A1C Routine 10/04/2019 13:02 EDT CALCIUM Routine 10/04/2019 13:02 EDT ALBUMIN Routine 10/04/2019 13:02 EDT TYPE AND SCREEN Routine 10/04/2019 13:01 EDT EKG 12-LEAD STAT 10/04/2019 11:58 EDT XR CHEST 2 VIEWS STAT 10/04/2019 11:31 EDT MR FOREFOOT/MIDFOOT W WO CONTRAST RIGHT STAT 10/04/2019 11:14 EDT POCT GLUCOSE, INTERFACED Routine 10/04/2019 9:40 EDT XR TIBIA FIBULA RIGHT 2 VIEWS STAT 10/04/2019 4:35 EDT ANAEROBE CULTURE/SMEAR(INC. AEROBES), OTHER Routine 10/04/2019 2:22 EDT ZZCOVID-19 TEST [facility] PCR STAT 10/03/2019 22:56 EDT COVID-19 TESTING STAT 10/03/2019 22:56 EDT XR FOOT RIGHT 3 OR MORE VIEWS STAT 10/03/2019 22:54 EDT BACTERIAL CULTURE, BLOOD STAT 10/03/2019 22:40 EDT POCT URINE DIPSTICK, CLINITEK STAT 10/03/2019 22:38 EDT POCT CSN BARCODE URINE DIPSTICK STAT 10/03/2019 22:26 EDT POCT URINE CLINITEK (DIPSTICK) - DOES NOT REFLEX STAT 10/03/2019 22:26 EDT HOLD BLUE TOP STAT 10/03/2019 22:25 EDT LACTIC ACID STAT 10/03/2019 22:25 EDT SED RATE Add-On 10/03/2019 22:25 EDT PROTIME Add-On 10/03/2019 22:25 EDT COMPLETE BLOOD COUNT AND DIFFERENTIAL STAT 10/03/2019 22:25 EDT BLOOD BANK HOLD STAT 10/03/2019 22:25 EDT C REACTIVE PROTEIN Add-On 10/03/2019 22:25 EDT BUN STAT 10/03/2019 22:25 EDT MAGNESIUM Add-On 10/03/2019 22:25 EDT HEMOGLOBIN A1C Add-On 10/03/2019 22:25 EDT GLUCOSE, SERUM STAT 10/03/2019 22:25 EDT CREATININE STAT 10/03/2019 22:25 EDT ELECTROLYTES STAT 10/03/2019 22:25 EDT BACTERIAL CULTURE, BLOOD STAT 10/03/2019 22:24 EDT POCT GLUCOSE, INTERFACED Routine 10/03/2019 22:05 EDT documented in this encounter Results * IMPLANT RECORD - SCANNED (10/22/2019 11:21 EDT) 10/22/2019 11:2 1 EDT us Scan 2 Dopeman PROCEDURE/MINOR SURGICAL OR DERABLES Final Result * ECG REPORT - SCANNED (10/20/2019 10:08 EDT) 10/20/2019 10:0 8 EDT us Scan 2 Dopeman PROCEDURE/MINOR SURGICAL OR DERABLES Final Result * (ABNORMAL) POCT GLUCOSE, INTERFACED (10/15/2019 13:17 EDT) Glucose, POC 157(H) 70 - 100 mg/dL 10/15/2019 13:18 EDT [facility] 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 ID [id number] 10/15/2019 13:18 EDT [facility] HN LAB POC COMMENT (GLUCOSE) Test Performed by Nursing Services 10/15/2019 13:18 EDT [facility] Blood CAPILLARY BLOOD / Unknown 10/15/2019 13:17 EDT 10/15/2019 13:18 EDT us Angelina Gonzales DP POINT OF CARE TEST ORDERABLES F inal Result [facility] [address] [place] [address] * (ABNORMAL) POCT GLUCOSE, INTERFACED (10/15/2019 9:26 EDT) Glucose, POC 104(H) 70 - 100 mg/dL 10/15/2019 9:27 EDT [facility] 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 ID [id number] 10/15/2019 9:27 EDT [facility] HN LAB POC COMMENT (GLUCOSE) Test Performed by Nursing Services 10/15/2019 9:27 EDT [facility] Blood CAPILLARY BLOOD / Unknown 10/15/2019 9:26 EDT 10/15/2019 9:27 EDT Raman Cary MD POINT OF CARE TEST ORDERAB LES Final Result Performing Organization Address [facility] Co de Phone Number [facility] [address] [place] [address] * COVID-19 TEST [facility] PCR (10/14/2019 21:04 EDT) Swab ENTIRE NASOPHARYNX / Unknown Swab / Unknown 10/14/2019 21:04 EDT 10/14/2019 21:13 EDT Nikia Hernandez PA-C MICROBIOLOGY - GENERAL ORDERABLES Final Result Performing Organization Address [facility] Co de Phone Number [facility] [address] [place] [address] * COVID-19 TESTING (10/14/2019 21:04 EDT) COVID-19 rt-PCR Result Negative Negative 10/15/2019 1:03 EDT [facility] Comment: This test has not [...] history, and epidemiological information. Performed on the Deep-[employer] Fusion instrument Performing Lab [facility] 10/15/2019 1:03 EDT [facility] Swab ENTIRE NASOPHARYNX / Unknown Swab / Unknown 10/14/2019 21:04 EDT 10/14/2019 21:13 EDT us Nikia Hernandez PA-C MICROBIOLOGY - GENERAL ORDERABLES Final Result [facility] [address] [place] [address] * (ABNORMAL) POCT GLUCOSE, INTERFACED (10/14/2019 20:52 EDT) Glucose, POC 105(H) 70 - 100 mg/dL 10/14/2019 20:55 EDT [facility] 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 ID [id number] 10/14/2019 20:55 EDT [facility] HN LAB POC COMMENT (GLUCOSE) Test Performed by Nursing Services 10/14/2019 20:55 EDT [facility] Blood CAPILLARY BLOOD / Unknown 10/14/2019 20:52 EDT 10/14/2019 20:55 EDT us Raman Cary MD POINT OF CARE TEST ORDERAB LES Final Result Performing Organization Address City/[facility]/ZIP Co de Phone Number [facility] [address] [place] [address] * (ABNORMAL) POCT GLUCOSE, INTERFACED (10/14/2019 17:37 EDT) Glucose, POC 145(H) 70 - 100 mg/dL 10/14/2019 17:38 EDT [facility] 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 ID [id number] 10/14/2019 17:38 EDT [facility] HN LAB POC COMMENT (GLUCOSE) Test Performed by Nursing Services 10/14/2019 17:38 EDT [facility] Blood CAPILLARY BLOOD / Unknown 10/14/2019 17:37 EDT 10/14/2019 17:38 EDT us Angelina Gonzales DPM POINT OF CARE TEST ORDERABLES F inal Result [facility] [address] [place] [address] * (ABNORMAL) POCT GLUCOSE, INTERFACED (10/14/2019 12:55 EDT) Glucose, POC 138(H) 70 - 100 mg/dL 10/14/2019 12:57 EDT [facility] 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 ID [id number] 10/14/2019 12:57 EDT [facility] HN LAB POC COMMENT (GLUCOSE) Test Performed by Nursing Services 10/14/2019 12:57 EDT [facility] Blood CAPILLARY BLOOD / Unknown 10/14/2019 12:55 EDT 10/14/2019 12:57 EDT us Angelina Gonzales [facility] POINT OF CARE TEST ORDERABLES F inal Result Performing Organization Address City/[facility]/ZIP Co de Phone Number [facility] [address] [place] [address] * (ABNORMAL) POCT GLUCOSE, INTERFACED (10/14/2019 7:53 EDT) Glucose, POC 175(H) 70 - 100 mg/dL 10/14/2019 7:55 EDT [facility] 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 ID [id number] 10/14/2019 7:55 EDT [facility] HN LAB POC COMMENT (GLUCOSE) Test Performed by Nursing Services 10/14/2019 7:55 EDT [facility] Blood CAPILLARY BLOOD / Unknown 10/14/2019 7:53 EDT 10/14/2019 7:55 EDT us Raman Cary MD POINT OF CARE TEST ORDERAB LES Final Result [facility] [address] [place] [address] * (ABNORMAL) POCT GLUCOSE, INTERFACED (10/13/2019 21:45 EDT) Glucose, POC 118(H) 70 - 100 mg/dL 10/13/2019 21:45 EDT [facility] 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 ID [id number] 10/13/2019 21:45 EDT [facility] HN LAB POC COMMENT (GLUCOSE) Test Performed by Nursing Services 10/13/2019 21:45 EDT [facility] Blood CAPILLARY BLOOD / Unknown 10/13/2019 21:45 EDT 10/13/2019 21:45 EDT us Raman Cary MD POINT OF CARE TEST ORDERAB LES Final Result Performing Organization Address [facility]/ZIP Co de Phone Number [facility] [address] [place] [address] * (ABNORMAL) POCT GLUCOSE, INTERFACED (10/13/2019 19:14 EDT) Glucose, POC 186(H) 70 - 100 mg/dL 10/13/2019 19:17 EDT [facility] 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 ID [id number] 10/13/2019 19:17 EDT [facility] HN LAB POC COMMENT (GLUCOSE) Test Performed by Nursing Services 10/13/2019 19:17 EDT [facility] Blood CAPILLARY BLOOD / Unknown 10/13/2019 19:14 EDT 10/13/2019 19:17 EDT us Angelina Gonzales [facility] POINT OF CARE TEST ORDERABLES F inal Result Performing Organization Address [facility] Co de Phone Number [facility] [address] [place] [address] * (ABNORMAL) POCT GLUCOSE, INTERFACED (10/13/2019 11:59 EDT) Glucose, POC 155(H) 70 - 100 mg/dL 10/13/2019 12:00 EDT [facility] 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 ID [id number] 10/13/2019 12:00 EDT [facility] HN LAB POC COMMENT (GLUCOSE) Test Performed by Nursing Services 10/13/2019 12:00 EDT [facility] Blood CAPILLARY BLOOD / Unknown 10/13/2019 11:59 EDT 10/13/2019 12:00 EDT us Angelina Gonzales DP POINT OF CARE TEST ORDERABLES F inal Result Performing Organization Address City/[facility]/ZIP Co de Phone Number [facility] [address] [place] [address] * (ABNORMAL) POCT GLUCOSE, INTERFACED (10/13/2019 7:11 EDT) Glucose, POC 170(H) 70 - 100 mg/dL 10/13/2019 8:30 EDT [facility] 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 ID [id number] 10/13/2019 8:30 EDT [facility] HN LAB POC COMMENT (GLUCOSE) Test Performed by Nursing Services 10/13/2019 8:30 EDT [facility] Blood CAPILLARY BLOOD / Unknown 10/13/2019 7:11 EDT 10/13/2019 8:30 EDT us Raman Cary MD POINT OF CARE TEST ORDERAB LES Final Result Performing Organization Address [facility]/ZIP Co de Phone Number [facility] [address] [place] [address] * (ABNORMAL) POCT GLUCOSE, INTERFACED (10/12/2019 21:10 EDT) Glucose, POC 161(H) 70 - 100 mg/dL 10/12/2019 21:11 EDT [facility] 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 ID [id number] 10/12/2019 21:11 EDT [facility] HN LAB POC COMMENT (GLUCOSE) Test Performed by Nursing Services 10/12/2019 21:11 EDT [facility] Blood CAPILLARY BLOOD / Unknown 10/12/2019 21:10 EDT 10/12/2019 21:11 EDT us Raman Cary MD POINT OF CARE TEST ORDERAB LES Final Result Performing Organization Address City/[facility]/ZIP Co de Phone Number [facility] [address] [place] [address] * (ABNORMAL) POCT GLUCOSE, INTERFACED (10/12/2019 17:11 EDT) Glucose, POC 138(H) 70 - 100 mg/dL 10/12/2019 17:12 EDT [facility] 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 ID [id number] 10/12/2019 17:12 EDT [facility] HN LAB POC COMMENT (GLUCOSE) Test Performed by Nursing Services 10/12/2019 17:12 EDT [facility] Blood CAPILLARY BLOOD / Unknown 10/12/2019 17:11 EDT 10/12/2019 17:12 EDT us Raman Cary MD POINT OF CARE TEST ORDERAB LES Final Result Performing Organization Address [facility] Co de Phone Number [facility] [address] [place] [address] * (ABNORMAL) POCT GLUCOSE, INTERFACED (10/12/2019 12:06 EDT) Glucose, POC 185(H) 70 - 100 mg/dL 10/12/2019 12:07 EDT [facility] 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 ID [id number] 10/12/2019 12:07 EDT [facility] HN LAB POC COMMENT (GLUCOSE) Test Performed by Nursing Services 10/12/2019 12:07 EDT [facility] Blood CAPILLARY BLOOD / Unknown 10/12/2019 12:06 EDT 10/12/2019 12:07 EDT us Angelina Gonzales DP POINT OF CARE TEST ORDERABLES F inal Result Performing Organization Address [facility] de Phone Number [facility] [address] [place] [address] * POCT GLUCOSE, INTERFACED (10/12/2019 7:27 EDT) Glucose, POC 83 70 - 100 mg/dL 10/12/2019 9:13 EDT [facility] 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 ID [id number] 10/12/2019 9:13 EDT [facility] HN LAB POC COMMENT (GLUCOSE) Test Performed by Nursing Services 10/12/2019 9:13 EDT [facility] Blood CAPILLARY BLOOD / Unknown 10/12/2019 7:27 EDT 10/12/2019 9:13 EDT us Raman Cary MD POINT OF CARE TEST ORDERAB LES Final Result Performing Organization Address City/[facility]/ZIP Co de Phone Number [facility] [address] [place] [address] * (ABNORMAL) POCT GLUCOSE, INTERFACED (10/11/2019 21:03 EDT) Glucose, POC 132(H) 70 - 100 mg/dL 10/11/2019 21:08 EDT [facility] 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 ID [id number] 10/11/2019 21:08 EDT [facility] HN LAB POC COMMENT (GLUCOSE) Test Performed by Nursing Services 10/11/2019 21:08 EDT [facility] Blood CAPILLARY BLOOD / Unknown 10/11/2019 21:03 EDT 10/11/2019 21:08 EDT us Raman Cary MD POINT OF CARE TEST ORDERAB LES Final Result Performing Organization Address [facility]/ZIP Co de Phone Number [facility] [address] [place] [address] * (ABNORMAL) POCT GLUCOSE, INTERFACED (10/11/2019 17:58 EDT) Glucose, POC 124(H) 70 - 100 mg/dL 10/11/2019 17:59 EDT [facility] 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 ID [id number] 10/11/2019 17:59 EDT [facility] HN LAB POC COMMENT (GLUCOSE) Test Performed by Nursing Services 10/11/2019 17:59 EDT [facility] Blood CAPILLARY BLOOD / Unknown 10/11/2019 17:58 EDT 10/11/2019 17:59 EDT us Angelina Gonzales [facility] POINT OF CARE TEST ORDERABLES F inal Result Performing Organization Address City/[facility]/ZIP Co de Phone Number [facility] [address] [place] [address] * (ABNORMAL) POCT GLUCOSE, INTERFACED (10/11/2019 13:39 EDT) Glucose, POC 289(H) 70 - 100 mg/dL 10/11/2019 13:40 EDT [facility] 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 ID [id number] 10/11/2019 13:40 EDT [facility] HN LAB POC COMMENT (GLUCOSE) Test Performed by Nursing Services 10/11/2019 13:40 EDT [facility] Blood CAPILLARY BLOOD / Unknown 10/11/2019 13:39 EDT 10/11/2019 13:40 EDT us Angelina Gonzales DP POINT OF CARE TEST ORDERABLES F inal Result Performing Organization Address City/[facility]/ZIP Co de Phone Number [facility] [address] [place] [address] * (ABNORMAL) POCT GLUCOSE, INTERFACED (10/11/2019 9:39 EDT) Glucose, POC 128(H) 70 - 100 mg/dL 10/11/2019 9:41 EDT [facility] 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 ID [id number] 10/11/2019 9:41 EDT [facility] HN LAB POC COMMENT (GLUCOSE) Test Performed by Nursing Services 10/11/2019 9:41 EDT [facility] Blood CAPILLARY BLOOD / Unknown 10/11/2019 9:39 EDT 10/11/2019 9:41 EDT us Raman Cary MD POINT OF CARE TEST ORDERAB LES Final Result Performing Organization Address City/[facility]/ZIP Co de Phone Number [facility] [address] [place] [address] * (ABNORMAL) POCT GLUCOSE, INTERFACED (10/11/2019 0:15 EDT) Glucose, POC 158(H) 70 - 100 mg/dL 10/11/2019 0:16 EDT [facility] 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 ID [id number] 10/11/2019 0:16 EDT [facility] HN LAB POC COMMENT (GLUCOSE) Test Performed by Nursing Services 10/11/2019 0:16 EDT [facility] Blood CAPILLARY BLOOD / Unknown 10/11/2019 0:15 EDT 10/11/2019 0:16 EDT us Angelina Gonzales DPM POINT OF CARE TEST ORDERABLES F inal Result [facility] [address] [place] [address] * (ABNORMAL) POCT GLUCOSE, INTERFACED (10/10/2019 21:03 EDT) Glucose, POC 287(H) 70 - 100 mg/dL 10/10/2019 21:07 EDT [facility] 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 ID [id number] 10/10/2019 21:07 EDT [facility] HN LAB POC COMMENT (GLUCOSE) Test Performed by Nursing Services 10/10/2019 21:07 EDT [facility] Blood CAPILLARY BLOOD / Unknown 10/10/2019 21:03 EDT 10/10/2019 21:07 EDT us Raman Cary MD POINT OF CARE TEST ORDERAB LES Final Result Performing Organization Address [facility]/ZIP Co de Phone Number [facility] [address] [place] [address] * (ABNORMAL) POCT GLUCOSE, INTERFACED (10/10/2019 18:15 EDT) Glucose, POC 297(H) 70 - 100 mg/dL 10/10/2019 18:17 EDT [facility] 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 ID [id number] 10/10/2019 18:17 EDT [facility] HN LAB POC COMMENT (GLUCOSE) Test Performed by Nursing Services 10/10/2019 18:17 EDT [facility] Blood CAPILLARY BLOOD / Unknown 10/10/2019 18:15 EDT 10/10/2019 18:17 EDT us Angelina Gonzales DPM POINT OF CARE TEST ORDERABLES F inal Result [facility] [address] [place] [address] * (ABNORMAL) POCT GLUCOSE, INTERFACED (10/10/2019 13:20 EDT) Glucose, POC 245(H) 70 - 100 mg/dL 10/10/2019 13:21 EDT [facility] 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 ID [id number] 10/10/2019 13:21 EDT [facility] HN LAB POC COMMENT (GLUCOSE) Test Performed by Nursing Services 10/10/2019 13:21 EDT [facility] Blood CAPILLARY BLOOD / Unknown 10/10/2019 13:20 EDT 10/10/2019 13:21 EDT us Angelina Gonzales DP POINT OF CARE TEST ORDERABLES F inal Result Performing Organization Address City/[facility]/ZIP Co de Phone Number [facility] [address] [place] [address] * (ABNORMAL) POCT GLUCOSE, INTERFACED (10/10/2019 7:37 EDT) Glucose, POC 269(H) 70 - 100 mg/dL 10/10/2019 7:39 EDT [facility] 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 ID [id number] 10/10/2019 7:39 EDT [facility] HN LAB POC COMMENT (GLUCOSE) Test Performed by Nursing Services 10/10/2019 7:39 EDT [facility] Blood CAPILLARY BLOOD / Unknown 10/10/2019 7:37 EDT 10/10/2019 7:39 EDT us Raman Cary MD POINT OF CARE TEST ORDERAB LES Final Result [facility] [address] [place] [address] * (ABNORMAL) CREATININE (10/10/2019 6:32 EDT) Creatinine 0.58(L) 0.66 - 1.25 mg/dL 10/10/2019 8:00 EDT [facility] eGFR 113 >60 mL/min/1.7 3m2 10/10/2019 8:00 EDT [facility] Comment:eGFR calculated sarahi krishnan CKD-EPI equation for non- Americans. Multiply eGFR by 1.16 for patients. Blood VENOUS BLOOD / Unknown Venipuncture / Unknown 10/10/2019 6:32 EDT 10/10/2019 7:25 EDT Virgilio Ramriez MD CHEMISTRY & BLOOD GAS OR DERABLES Final Result Performing Organization Address [facility] Co de Phone Number [facility] [address] [place] [address] * (ABNORMAL) POCT GLUCOSE, INTERFACED (10/09/2019 21:52 EDT) Glucose, POC 156(H) 70 - 100 mg/dL 10/09/2019 21:55 EDT [facility] 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 ID [id number] 10/09/2019 21:55 EDT [facility] HN LAB POC COMMENT (GLUCOSE) Test Performed by Nursing Services 10/09/2019 21:55 EDT [facility] Blood CAPILLARY BLOOD / Unknown 10/09/2019 21:52 EDT 10/09/2019 21:55 EDT us Angelina Gonzales [facility] POINT OF CARE TEST ORDERABLES F inal Result Performing Organization Address [facility] Co de Phone Number [facility] [address] [place] [address] * (ABNORMAL) POCT GLUCOSE, INTERFACED (10/09/2019 17:16 EDT) Glucose, POC 111(H) 70 - 100 mg/dL 10/09/2019 17:21 EDT [facility] 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 ID [id number] 10/09/2019 17:21 EDT [facility] HN LAB POC COMMENT (GLUCOSE) Test Performed by Nursing Services 10/09/2019 17:21 EDT [facility] Blood CAPILLARY BLOOD / Unknown 10/09/2019 17:16 EDT 10/09/2019 17:21 EDT us Aneglina Gonzales DP POINT OF CARE TEST ORDERABLES F inal Result [facility] [address] [place] [address] * SURGICAL PATHOLOGY (10/09/2019 16:11 EDT) Final Diagnosis A. TOE, PORTION OF 2ND METATARSAL, RIGHT, AMPUTATION: - Partially devitalized bone with acute osteomyelitis B. TOE, PORTION OF 3RD METATARSAL, RIGHT, AMPUTATION: - Partially devitalized bone with features of recent acute osteomyelitis C. FOREFOOT, RIGHT, 1ST, 4TH, AND 5TH DIGITS, AMPUTATION: - Ulcerated skin with underlying soft tissue gangrenous necrosis - Acute osteomyelitis extending to bone resection margin 10/14/2019 10:13 EDT [facility] Attestation There was significant resident/fellow involvement in the diagnostic evaluation of this case. By the signature below, the attending physician certifies that they have personally conducted a gross and/or microscopic examination of the described specimens and rendered or confirmed the above diagnosis. 10/14/2019 10:13 [facility] at 1013 Clinical History Acute osteomyelitis of right ankle or foot ([facility]) 10/14/2019 10:13 T [facility] Gross Description A. Received in normal saline labelled with proper patient identification (initials D, S) and second metatarsal is a 1.4 x 1.0 by 0.3 cm section of metatarsal bone. The central aspect is softened and hemorrhagic. Entirely submitted in A1 following acid decalcification B. Received in normal saline labelled with proper patient identification (initials D,S) and ? third metatarsal is a 1.6 x 1.2 by up to 0.3 cm section of metatarsal bone. The central aspect is softened and hemorrhagic. Entirely submitted in B1 following acid decalcification C. Received fresh labelled with proper patient identification (initials D, S) and forefoot are two portions of tissue. The first consists of the first toe and distal portion of the first metatarsal, 10.0 x 4.5 x 4.5 cm. The medial dorsal surface show a leathery black area of ulceration extending to the skin and soft tissue margin, measuring approximately 7 cm in greatest dimension. The lateral soft tissue surface of the forefoot is dusky pink brown with exudate coating. The underlying phalangeal and metatarsal bones of firm. The bone at the resection margin is smooth and without areas of softening. The second portion of tissue consists of a fourth and fifth digit with distal forefoot, 9.5 x 4.8 x 4.7 cm. The medial forefoot soft tissue margin is dusky purple jones. Fourth and fifth metatarsal bones are smooth and without areas of softening at the resection margin. The medial skin at the resection margin shows a 0.6 cm area of encrusted ulceration. The underlying bone is without areas of softening. It Sales Executive sections are submitted as follows: BLOCK DAVIS C1- skin and soft tissue margin en face, first metatarsal tissue C2- lateral soft tissue margin first metatarsal C3- first metatarsal margin en face, following acid decalcification C4- medial skin ulceration fourth metatarsal soft tissue margin Lauren Davidson 10/10/2019 14:36 10/14/2019 10:13 EDT [facility] Resident/Mickey w: Lb Gomes MD 10/14/2019 10:13 EDT [facility] Performing Lab [facility] 10:13 EDT [facility] Scanned Images 10/14/2019 10:13 EDT [facility] Tissue SPECIMEN FROM BONE / Unknown 10/09/2019 16:11 EDT 10/09/2019 21:35 EDT Tissue specimen (specimen) BONE STRUCTURE / Unknown 10/09/2019 16:12 EDT 10/09/2019 21:35 EDT Tissue specimen (specimen) AMPUTATED STRUCTURE / Unknown 10/09/2019 16:12 EDT 10/09/2019 21:35 EDT us Angelina Gonzales DPM PATHOLOGY ORDERABLES Final Resu lt [facility] [address] [place] [address] * (ABNORMAL) POCT GLUCOSE, INTERFACED (10/09/2019 14:41 EDT) Glucose, POC 107(H) 70 - 100 mg/dL 10/09/2019 14:42 EDT [facility] 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 ID [id number] 10/09/2019 14:42 EDT [facility] HN LAB POC COMMENT (GLUCOSE) Test Performed by Nursing Services 10/09/2019 14:42 EDT [facility] Blood CAPILLARY BLOOD / Unknown 10/09/2019 14:41 EDT 10/09/2019 14:41 EDT us Angelina Gonzales [facility] POINT OF CARE TEST ORDERABLES F inal Result Performing Organization Address [facility] Co de Phone Number [facility] [address] [place] [address] * (ABNORMAL) POCT GLUCOSE, INTERFACED (10/09/2019 13:24 EDT) Glucose, POC 111(H) 70 - 100 mg/dL 10/09/2019 14:26 EDT [facility] 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 ID [id number] 10/09/2019 14:26 EDT [facility] HN LAB POC COMMENT (GLUCOSE) Test Performed by Nursing Services 10/09/2019 14:26 EDT [facility] Blood CAPILLARY BLOOD / Unknown 10/09/2019 13:24 EDT 10/09/2019 14:26 EDT us Angelina Gonzales [facility] POINT OF CARE TEST ORDERABLES F inal Result Performing Organization Address [facility] Co de Phone Number [facility] [address] [place] [address] * (ABNORMAL) POCT GLUCOSE, INTERFACED (10/09/2019 9:29 EDT) Glucose, POC 163(H) 70 - 100 mg/dL 10/09/2019 9:30 EDT [facility] 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 ID [id number] 10/09/2019 9:30 EDT [facility] HN LAB POC COMMENT (GLUCOSE) Test Performed by Nursing Services 10/09/2019 9:30 EDT [facility] Blood CAPILLARY BLOOD / Unknown 10/09/2019 9:29 EDT 10/09/2019 9:30 EDT us Angelina Gonzales [facility] POINT OF CARE TEST ORDERABLES F inal Result Performing Organization Address [facility] Co de Phone Number [facility] [address] [place] [address] * (ABNORMAL) POCT GLUCOSE, INTERFACED (10/09/2019 5:57 EDT) Pathologist [facility] Glucose, POC 202(H) 70 - 100 mg/dL 10/09/2019 5:57 EDT [facility] 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 ID [id number] 10/09/2019 5:57 EDT [facility] HN LAB POC COMMENT (GLUCOSE) Test Performed by Nursing Services 10/09/2019 5:57 EDT [facility] Blood CAPILLARY BLOOD / Unknown 10/09/2019 5:57 EDT 10/09/2019 5:57 EDT Angelina Gonzales [facility] POINT OF CARE TEST ORDERABLES F inal Result Performing Organization Address [facility] Co de Phone Number [facility] [address] [place] [address] * VANCOMYCIN TROUGH (10/09/2019 3:31 EDT) [facility] Vancomycin Trough 13.1 10.0 - 20.0 ug/mlL 10/09/2019 4:24 EDT [facility] Draw Type Not Given 10/09/2019 4:24 EDT [facility] Blood VENOUS BLOOD / Unknown Venipuncture / Unknown 10/09/2019 3:31 EDT 10/09/2019 3:47 EDT Virgilio Ramirez MD CHEMISTRY & BLOOD GAS OR DERABLES Final Result Performing Organization Address [facility] Co de Phone Number [facility] [address] [place] [address] * (ABNORMAL) POCT GLUCOSE, INTERFACED (10/08/2019 21:16 EDT) Pathologist [facility] Glucose, POC 278(H) 70 - 100 mg/dL 10/08/2019 21:17 EDT [facility] 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 ID [id number] 10/08/2019 21:17 EDT [facility] HN LAB POC COMMENT (GLUCOSE) Test Performed by Nursing Services 10/08/2019 21:17 EDT [facility] Blood CAPILLARY BLOOD / Unknown 10/08/2019 21:16 EDT 10/08/2019 21:17 EDT us Angelina Gonzales [facility] POINT OF CARE TEST ORDERABLES F inal Result Performing Organization Address [facility] Co de Phone Number [facility] [address] [place] [address] * (ABNORMAL) POCT GLUCOSE, INTERFACED (10/08/2019 18:01 EDT) Glucose, POC 239(H) 70 - 100 mg/dL 10/08/2019 18:02 EDT [facility] 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 ID [id number] 10/08/2019 18:02 EDT [facility] HN LAB POC COMMENT (GLUCOSE) Test Performed by Nursing Services 10/08/2019 18:02 EDT [facility] Blood CAPILLARY BLOOD / Unknown 10/08/2019 18:01 EDT 10/08/2019 18:02 EDT us Angelina Medina Christian [facility] POINT OF CARE TEST ORDERABLES F inal Result Performing Organization Address [facility] Co de Phone Number [facility] [address] [place] [address] * (ABNORMAL) POCT GLUCOSE, INTERFACED (10/08/2019 12:46 EDT) Glucose, POC 242(H) 70 - 100 mg/dL 10/08/2019 12:47 EDT [facility] 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 ID [id number] 10/08/2019 12:47 EDT [facility] HN LAB POC COMMENT (GLUCOSE) Test Performed by Nursing Services 10/08/2019 12:47 EDT [facility] Blood CAPILLARY BLOOD / Unknown 10/08/2019 12:46 EDT 10/08/2019 12:47 EDT us Angelina Medina Christian DP POINT OF CARE TEST ORDERABLES F inal Result Performing Organization Address [facility] Co de Phone Number [facility] [address] [place] [address] * ECG REPORT - SCANNED (10/08/2019 8:47 EDT) 10/08/2019 8:47 EDT us Scan 2 [employer]eman PROCEDURE/MINOR SURGICAL OR DERABLES Final Result * (ABNORMAL) PROTIME (10/08/2019 8:26 EDT) I.N.R. 1.4(H) 0.9 - 1.1 Ratio 10/08/2019 8:49 EDT [facility] Pro Time 16.8(H) 10.3 - 13.4 secs 10/08/2019 8:49 EDT [facility] Blood VENOUS BLOOD / Unknown Venipuncture / Unknown 10/08/2019 8:26 EDT 10/08/2019 8:33 EDT Narrative [facility] - 10/08/2019 8:49 EDT Moderate Intensity Coumadin INR = 2.0-3.0 Adjustments in anticoagulant therapy dose should be based on the INR and NOT on the Protime. us Rainer Cavazos MD HEMATOLOGY & PF4 ORDERABLES Sobia l Result Performing Organization Address [facility] Co de Phone Number [facility] [address] [place] [address] * TYPE AND SCREEN (10/08/2019 8:26 EDT) ABO A 10/08/2019 9:13 EDT [facility] Rh Factor Positive 10/08/2019 9:13 EDT [facility] Antibody Screen Negative 10/08/2019 9:13 EDT [facility] Specimen Expires: 10/11/2019 @ 23:59 10/08/2019 9:13 EDT [facility] Blood VENOUS BLOOD / Unknown Venipuncture / Unknown 10/08/2019 8:26 EDT 10/08/2019 8:34 EDT Rainer Cavazos MD BLOOD BANK TESTS Edited Result - Final Performing Organization Address [facility] Co de Phone Number [facility] [address] [place] [address] * (ABNORMAL) POCT GLUCOSE, INTERFACED (10/08/2019 8:19 EDT) Glucose, POC 209(H) 70 - 100 mg/dL 10/08/2019 8:22 EDT [facility] 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 ID [id number] 10/08/2019 8:22 EDT [facility] HN LAB POC COMMENT (GLUCOSE) Test Performed by Nursing Services 10/08/2019 8:22 EDT [facility] Blood CAPILLARY BLOOD / Unknown 10/08/2019 8:19 EDT 10/08/2019 8:22 EDT us Angelina Gonzales DPM POINT OF CARE TEST ORDERABLES F inal Result Performing Organization Address [facility] de Phone Number [facility] [facility] [address] [place] [address] * (ABNORMAL) COMPLETE BLOOD COUNT (10/08/2019 6:25 EDT) WBC 7.35 4.00 - 10.40 K/cmm 10/08/2019 6:55 EDT [facility] RBC 3.98(L) 4.36 - 5.78 M/cmm 10/08/2019 6:55 T [facility] Hemoglobin 12.1(L) 13.8 - 17.3 gm/dL 10/08/2019 6:55 EDT [facility] HCT 35.3(L) 39.5 - 50.2 % 10/08/2019 6:55 EDT [facility] MCV 89 81 - 95 fl 10/08/2019 6:55 EDT [facility] MCH 30.4 27.6 - 33.0 pg 10/08/2019 6:55 EDT [facility] MCHC 34.3 32.8 - 36.4 gm/dL 10/08/2019 6:55 EDT [facility] RDW-CV 12.8 <14.2 % 10/08/2019 6:55 EDT [facility] RDW-SD 41.8 <46.0 fl 10/08/2019 6:55 EDT [facility] PLT 311 141 - 377 K/cmm 10/08/2019 6:55 EDT [facility] MPV 9.4(L) 9.5 - 12.7 fl 10/08/2019 6:55 EDT [facility] Blood VENOUS BLOOD / Unknown Venipuncture / Unknown 10/08/2019 6:25 EDT 10/08/2019 6:48 EDT Sachin Castle MD HEMATOLOGY & PF4 ORDERABLES Final Result Performing Organization Address [facility] Co de Phone Number [facility] [address] [place] [id number] * (ABNORMAL) ELECTROLYTES (10/08/2019 6:25 EDT) Sodium 134(L) 136 - 145 mEq/L 10/08/2019 7:21 T [facility] Potassium 3.1(L) 3.5 - 5.0 mEq/L 10/08/2019 7:21 T [facility] Chloride 94(L) 96 - 110 mEq/L 10/08/2019 7:21 T [facility] CO2 Total 33(H) 22 - 32 mEq/L 10/08/2019 7:21 EDT [facility] Blood VENOUS BLOOD / Unknown Venipuncture / Unknown 10/08/2019 6:25 EDT 10/08/2019 6:48 EDT Sachin Castle MD CHEMISTRY & BLOOD GAS ORDER ELIU Final Result Performing Organization Address [facility]/ZIP Co de Phone Number [facility] [address] [place] [id number] * (ABNORMAL) CREATININE (10/08/2019 6:25 EDT) Creatinine 0.59(L) 0.66 - 1.25 mg/dL 10/08/2019 7:21 EDT [facility] eGFR 112 >60 mL/min/1.7 3m2 10/08/2019 7:21 EDT [facility] Comment:eGFR calculated sarahi krishnan CKD-EPI equation for non- Americans. Multiply eGFR by 1.16 for patients. Blood VENOUS BLOOD / Unknown Venipuncture / Unknown 10/08/2019 6:25 EDT 10/08/2019 6:48 EDT Sachin Castle MD CHEMISTRY & BLOOD GAS ORDER ELIU Final Result [facility] [address] [place] [address] * (ABNORMAL) BUN (10/08/2019 6:25 EDT) BUN 6(L) 10 - 26 mg/dL 10/08/2019 7:21 EDT [facility] Blood VENOUS BLOOD / Unknown Venipuncture / Unknown 10/08/2019 6:25 EDT 10/08/2019 6:48 EDT Sachin Castle MD CHEMISTRY & BLOOD GAS ORDER ELIU Final Result [facility] [address] [place] [address] * (ABNORMAL) POCT GLUCOSE, INTERFACED (10/07/2019 21:20 EDT) Glucose, POC 248(H) 70 - 100 mg/dL 10/07/2019 21:21 EDT [facility] 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 ID [id number] 10/07/2019 21:21 EDT [facility] HN LAB POC COMMENT (GLUCOSE) Test Performed by Nursing Services 10/07/2019 21:21 EDT [facility] Blood CAPILLARY BLOOD / Unknown 10/07/2019 21:20 EDT 10/07/2019 21:21 EDT us Angelina Gonzales DPM POINT OF CARE TEST ORDERABLES F inal Result Performing Organization Address City/[facility]/ZIP Co de Phone Number [facility] [address] [place] [address] * (ABNORMAL) POCT GLUCOSE, INTERFACED (10/07/2019 18:18 EDT) Glucose, POC 247(H) 70 - 100 mg/dL 10/07/2019 20:46 EDT [facility] 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 ID [id number] 10/07/2019 20:46 EDT [facility] HN LAB POC COMMENT (GLUCOSE) Test Performed by Nursing Services 10/07/2019 20:46 EDT [facility] Blood CAPILLARY BLOOD / Unknown 10/07/2019 18:18 EDT 10/07/2019 20:46 EDT us Angelina Gonzales DP POINT OF CARE TEST ORDERABLES F inal Result Performing Organization Address [facility]/ZIP Co de Phone Number [facility] [address] [place] [address] * (ABNORMAL) POCT GLUCOSE, INTERFACED (10/07/2019 13:13 EDT) Glucose, POC 286(H) 70 - 100 mg/dL 10/07/2019 13:14 EDT [facility] 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 ID [id number] 10/07/2019 13:14 EDT [facility] HN LAB POC COMMENT (GLUCOSE) Test Performed by Nursing Services 10/07/2019 13:14 EDT [facility] Blood CAPILLARY BLOOD / Unknown 10/07/2019 13:13 EDT 10/07/2019 13:14 EDT us Angelina Gonzales DPM POINT OF CARE TEST ORDERABLES F inal Result Performing Organization Address City/[facility]/ZIP Co de Phone Number [facility] [address] [place] [address] * XR FOOT RIGHT 3 OR MORE VIEWS (10/07/2019 10:55 EDT) Anatomical Region Laterality Modality Lower Extremities Right Computed Radio graphy 10/07/2019 11:3 3 EDT Impressions 10/07/2019 11:33 EDT Status post partial dilatation of the right 2nd and 3rd metatarsals with associated changes to the soft tissue. No additional regions of cortical irregularity loosening are identified. I have personally reviewed the images and the above interpretation and agree with the findings. Narrative 10/07/2019 11:33 EDT XR FOOT RIGHT 3 OR MORE VIEWS ??10/07/2019 10:30 AM SIGNS AND SYMPTOMS/COMMENTS: assess bone for preop planning of right TMA COMPARISON: MR of the right foot from 10/04/2019 TECHNIQUE: AP, oblique, lateral views of the right foot were obtained. 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 The remaining 2nd metatarsal bone does not appear to have any cortical irregularity or lucency. There is degenerative joint space narrowing and sclerosis of the 1st tarsometatarsal joint. No concerning osseous lesions are identified. Redemonstrated os navicularis. Diffuse soft tissue swelling. Procedure Note Gurwinder Thomas MD - 10/07/2019 XR FOOT RIGHT 3 OR MORE VIEWS 10/07/2019 10:30 AM SIGNS AND SYMPTOMS/COMMENTS: assess bone for preop planning of right TMA COMPARISON: MR of the right foot from 10/04/2019 TECHNIQUE: AP, oblique, lateral views of the right foot were obtained. FINDINGS: There has been surgical amputation of the 2nd and 3rd metatarsal boneswith associated changes to the soft tissues. The remaining 2nd metatarsalbone does not appear to have any cortical irregularity or lucency. Thereis degenerative joint space narrowing and sclerosis of the 1sttarsometatarsal joint. No concerning osseous lesions are identified.Redemonstrated os navicularis. Diffuse soft tissue swelling. IMPRESSION Status post partial dilatation of the right 2nd and 3rd metatarsals withassociated changes to the soft tissue. No additional regions of corticalirregularity loosening are identified. I have personally reviewed the images and the above interpretation andagree with the findings. us Rainer Cavazos MD IMG DIAGNOSTIC IMAGING ORDERABLE S Final Result * (ABNORMAL) POCT GLUCOSE, INTERFACED (10/07/2019 9:39 EDT) Glucose, POC 215(H) 70 - 100 mg/dL 10/07/2019 9:39 EDT [facility] 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 ID [id number] 10/07/2019 9:39 EDT [facility] HN LAB POC COMMENT (GLUCOSE) Test Performed by Nursing Services 10/07/2019 9:39 EDT [facility] Blood CAPILLARY BLOOD / Unknown 10/07/2019 9:39 EDT 10/07/2019 9:39 EDT us Angelina Gonzales DP POINT OF CARE TEST ORDERABLES F inal Result [facility] [address] [place] [address] * (ABNORMAL) GLUCOSE, SERUM (10/07/2019 6:28 EDT) Glucose 203(H) 70 - 100 mg/dL 10/07/2019 7:15 EDT [facility] Blood VENOUS BLOOD / Unknown Venipuncture / Unknown 10/07/2019 6:28 EDT 10/07/2019 6:42 EDT us Js Meza MD CHEMISTRY & BLOOD GAS ORDERABLES Final Result [facility] [address] [place] [address] * (ABNORMAL) COMPLETE BLOOD COUNT AND DIFFERENTIAL (10/07/2019 6:28 EDT) WBC 10.35 4.00 - 10.40 K/cmm 10/07/2019 6:49 EDT [facility] RBC 3.74(L) 4.36 - 5.78 M/cmm 10/07/2019 6:49 EDT [facility] Hemoglobin 11.3(L) 13.8 - 17.3 gm/dL 10/07/2019 6:49 EDT [facility] HCT 33.4(L) 39.5 - 50.2 % 10/07/2019 6:49 [facility] MCV 89 81 - 95 fl 10/07/2019 6:49 [facility] MCH 30.2 27.6 - 33.0 pg 10/07/2019 6:49 [facility] MCHC 33.8 32.8 - 36.4 gm/dL 10/07/2019 6:49 [facility] RDW-CV 12.6 <14.2 % 10/07/2019 6:49 [facility] RDW-SD 41.6 <46.0 fl 10/07/2019 6:49 [facility] PLT 305 141 - 377 K/cmm 10/07/2019 6:49 [facility] MPV 9.5 9.5 - 12.7 fl 10/07/2019 6:49 [facility] % Neutrophils 76.9 % 10/07/2019 6:49 [facility] % Lymphocytes 15.1 % 10/07/2019 6:49 [facility] % Monocytes 4.6 % 10/07/2019 6:49 [facility] % Eosinophils 1.6 % 10/07/2019 6:49 [facility] % Basophils 0.4 % 10/07/2019 6:49 [facility] % Immature Grans 1.4 % 10/07/19 20 6:49 [facility] Absolute Neutrophils 7.96 2.20 - 8.85 K/cmm 10/07/2019 6:49 [facility] Absolute Lymphocytes 1.56 1.09 - 3.30 K/cmm 10/07/2019 6:49 [facility] Absolute Monocytes 0.48 0.10 - 0.80 K/cmm 10/07/2019 6:49 [facility] Absolute Eosinophils 0.17 0.03 - 0.61 K/cmm 10/07/2019 6:49 [facility] ABS Basophils 0.04 0.01 - 0.11 K/cmm 10/07/2019 6:49 EDT [facility] Absolute Immature Grans 0.14(H) 0.00 - 0.06 K/cmm 10/07/2019 6:49 EDT [facility] Type of Differential: Auto 10/07/2019 6:49 EDT [facility] Blood VENOUS BLOOD / Unknown Venipuncture / Unknown 10/07/2019 6:28 EDT 10/07/2019 6:42 EDT us Js Meza MD PACKAGES & DNA PROBE ORDERABLES Final Result Performing Organization Address [facility] Co de Phone Number [facility] [address] [place] [address] * (ABNORMAL) ELECTROLYTES (10/07/2019 6:28 EDT) Sodium 131(L) 136 - 145 mEq/L 10/07/2019 7:15 EDT [facility] Potassium 3.2(L) 3.5 - 5.0 mEq/L 10/07/2019 7:15 [facility] Chloride 94(L) 96 - 110 mEq/L 10/07/2019 7:15 T [facility] CO2 Total 29 22 - 32 mEq/L 10/07/2019 7:15 [facility] Blood VENOUS BLOOD / Unknown Venipuncture / Unknown 10/07/2019 6:28 EDT 10/07/2019 6:42 EDT us Js Meza MD CHEMISTRY & BLOOD GAS ORDERABLES Final Result Performing Organization Address [facility]/ZIP Co de Phone Number [facility] [address] [place] [address] * (ABNORMAL) CREATININE (10/07/2019 6:28 EDT) Creatinine 0.53(L) 0.66 - 1.25 mg/dL 10/07/2019 7:15 T [facility] eGFR 117 >60 mL/min/1.7 3m2 10/07/2019 7:15 T [facility] Comment:eGFR calculated usin g CKD-EPI equation for non- Americans. Multiply eGFR by 1.16 for patients. Blood VENOUS BLOOD / Unknown Venipuncture / Unknown 10/07/2019 6:28 EDT 10/07/2019 6:42 EDT us Js Meza MD CHEMISTRY & BLOOD GAS ORDERABLES Final Result Performing Organization Address [facility]/ZIP Co de Phone Number [facility] [address] [place] [address] * (ABNORMAL) BUN (10/07/2019 6:28 EDT) BUN 7(L) 10 - 26 mg/dL 10/07/2019 7:15 EDT [facility] Blood VENOUS BLOOD / Unknown Venipuncture / Unknown 10/07/2019 6:28 EDT 10/07/2019 6:42 EDT us Js Meza MD CHEMISTRY & BLOOD GAS ORDERABLES Final Result Performing Organization Address [facility] Co de Phone Number [facility] [address] [place] [address] * (ABNORMAL) POCT GLUCOSE, INTERFACED (10/06/2019 21:49 EDT) Glucose, POC 202(H) 70 - 100 mg/dL 10/06/2019 21:50 EDT [facility] 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 ID [id number] 10/06/2019 21:50 EDT [facility] HN LAB POC COMMENT (GLUCOSE) Test Performed by Nursing Services 10/06/2019 21:50 EDT [facility] Blood CAPILLARY BLOOD / Unknown 10/06/2019 21:49 EDT 10/06/2019 21:50 EDT us Angelina Gonzales DPM POINT OF CARE TEST ORDERABLES F inal Result Performing Organization Address [facility] Co de Phone Number [facility] [address] [place] [address] * (ABNORMAL) POCT GLUCOSE, INTERFACED (10/06/2019 19:32 EDT) Glucose, POC 275(H) 70 - 100 mg/dL 10/06/2019 19:33 EDT [facility] 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 ID [id number] 10/06/2019 19:33 EDT [facility] HN LAB POC COMMENT (GLUCOSE) Test Performed by Nursing Services 10/06/2019 19:33 EDT [facility] Blood CAPILLARY BLOOD / Unknown 10/06/2019 19:32 EDT 10/06/2019 19:33 EDT Angelina Carol Christian [facility] POINT OF CARE TEST ORDERABLES F inal Result Performing Organization Address City/[facility]/ZIP Co de Phone Number [facility] [address] [place] [address] * (ABNORMAL) POCT GLUCOSE, INTERFACED (10/06/2019 18:47 EDT) Glucose, POC 275(H) 70 - 100 mg/dL 10/06/2019 18:48 EDT [facility] 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 ID [id number] 10/06/2019 18:48 EDT [facility] HN LAB POC COMMENT (GLUCOSE) Test Performed by Nursing Services 10/06/2019 18:48 EDT [facility] Blood CAPILLARY BLOOD / Unknown 10/06/2019 18:47 EDT 10/06/2019 18:48 EDT Angelina Gonzales [facility] POINT OF CARE TEST ORDERABLES F inal Result [facility] [address] [place] [address] * (ABNORMAL) VANCOMYCIN TROUGH (10/06/2019 15:30 EDT) Vancomycin Trough 9.9(L) 10.0 - 20.0 ug/mlL 10/06/2019 16:20 EDT [facility] Draw Type Not Given 10/06/2019 16:20 EDT [facility] Blood VENOUS BLOOD / Unknown Venipuncture / Unknown 10/06/2019 15:30 EDT 10/06/2019 15:46 EDT Virgilio Ramirez MD CHEMISTRY & BLOOD GAS OR DERABLES Final Result [facility] [address] [place] [address] * (ABNORMAL) POCT GLUCOSE, INTERFACED (10/06/2019 14:03 EDT) Glucose, POC 260(H) 70 - 100 mg/dL 10/06/2019 14:14 EDT [facility] 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 ID [id number] 10/06/2019 14:14 EDT [facility] HN LAB POC COMMENT (GLUCOSE) Test Performed by Nursing Services 10/06/2019 14:14 EDT [facility] Blood CAPILLARY BLOOD / Unknown 10/06/2019 14:03 EDT 10/06/2019 14:14 EDT Angelina Gonzales DPM POINT OF CARE TEST ORDERABLES F inal Result Performing Organization Address [facility]/ZIP Co de Phone Number [facility] [address] [place] [address] * (ABNORMAL) POCT GLUCOSE, INTERFACED (10/06/2019 9:46 EDT) Glucose, POC 180(H) 70 - 100 mg/dL 10/06/2019 9:47 EDT [facility] 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 ID [id number] 10/06/2019 9:47 EDT [facility] HN LAB POC COMMENT (GLUCOSE) Test Performed by Nursing Services 10/06/2019 9:47 EDT [facility] Blood CAPILLARY BLOOD / Unknown 10/06/2019 9:46 EDT 10/06/2019 9:46 EDT us Angelina Gonzales DPM POINT OF CARE TEST ORDERABLES F inal Result Performing Organization Address City/[facility]/ZIP Co de Phone Number [facility] [address] [place] [address] * (ABNORMAL) HEMOGLOBIN A1C (10/06/2019 7:54 EDT) Hemoglobin A1c 15.8(H) <5.7 % 10/06/2019 15:34 EDT [facility] Comment: Glycemic Status References: Normal: ??<5.7% Pre-Diabetes: ??5.7% - 6.4% Diagnostic of Diabetes: ??> or = 6.5% (if confirmed) Goals for glycemic control in diabetics (ADA 2017): <7.0% target for non adults with diabetes. <7.5% target for children and adolescents with Type I Diabetes. More or less stringent targets may be appropriate for individual patients. Est Avg Glucose 407 mg/dL 0 15:34 EDT [facility] Comment:The eAG represents t he A1c result expressed as average glucose in mg/dL. Blood VENOUS BLOOD / Unknown Venipuncture / Unknown 10/06/2019 7:54 EDT 10/06/2019 8:31 EDT us Virgilio Ramirez MD CHEMISTRY & BLOOD GAS OR DERABLES Final Result [facility] [address] [place] [id number] * (ABNORMAL) COMPLETE BLOOD COUNT (10/06/2019 7:54 EDT) WBC 13.80(H) 4.00 - 10.40 K/cmm 10/06/2019 9:51 EDT [facility] RBC 3.74(L) 4.36 - 5.78 M/cmm 10/06/2019 9:51 EDT [facility] Hemoglobin 11.3(L) 13.8 - 17.3 gm/dL 10/06/2019 9:51 [facility] HCT 32.7(L) 39.5 - 50.2 % 10/06/2019 9:51 [facility] MCV 87 81 - 95 fl 10/06/2019 9:51 [facility] MCH 30.2 27.6 - 33.0 pg 10/06/2019 9:51 [facility] MCHC 34.6 32.8 - 36.4 gm/dL 10/06/2019 9:51 [facility] RDW-CV 12.4 <14.2 % 10/06/2019 9:51 [facility] RDW-SD 40.3 <46.0 fl 10/06/2019 9:51 [facility] PLT 294 141 - 377 K/cmm 10/06/2019 9:51 [facility] MPV 9.9 9.5 - 12.7 fl 10/06/2019 9:51 [facility] Blood VENOUS BLOOD / Unknown Venipuncture / Unknown 10/06/2019 7:54 EDT 10/06/2019 8:31 EDT Sachin Castle MD HEMATOLOGY & PF4 ORDERABLES Final Result Performing Organization Address City/[facility]/ZIP Co de Phone Number [facility] [address] [place] [address] * (ABNORMAL) SCREENING GLUCOSE (10/06/2019 7:54 EDT) [facility] Glucose, Screening 201(H) 70 - 100 mg/dL 10/06/2019 9:13 EDT [facility] Comment:Elevated screening g lucose value greater than 180 mg/dl, please order follow up Hemoglobin A1C. Blood VENOUS BLOOD / Unknown Venipuncture / Unknown 10/06/2019 7:54 EDT 10/06/2019 8:31 EDT Sachin Castle MD CHEMISTRY & BLOOD GAS ORDER ELIU Final Result Performing Organization Address City/[facility]/ZIP Co de Phone Number [facility] [address] [place] [address] * (ABNORMAL) COMPLETE BLOOD COUNT AND DIFFERENTIAL (10/06/2019 7:54 EDT) WBC 13.80(H) 4.00 - 10.40 K/cmm 10/06/2019 8:52 [facility] RBC 3.74(L) 4.36 - 5.78 M/cmm 10/06/2019 8:52 [facility] Hemoglobin 11.3(L) 13.8 - 17.3 gm/dL 10/06/2019 8:52 [facility] HCT 32.7(L) 39.5 - 50.2 % 10/06/2019 8:52 [facility] MCV 87 81 - 95 fl 10/06/2019 8:52 [facility] MCH 30.2 27.6 - 33.0 pg 10/06/2019 8:52 [facility] MCHC 34.6 32.8 - 36.4 gm/dL 10/06/2019 8:52 [facility] RDW-CV 12.4 <14.2 % 10/06/2019 8:52 [facility] RDW-SD 40.3 <46.0 fl 10/06/2019 8:52 [facility] PLT 294 141 - 377 K/cmm 10/06/2019 8:52 [facility] MPV 9.9 9.5 - 12.7 fl 10/06/2019 8:52 [facility] % Neutrophils 80.3 % 10/06/2019 8:52 [facility] % Lymphocytes 11.2 % 10/06/2019 8:52 [facility] % Monocytes 5.7 % 10/06/2019 8:52 [facility] % Eosinophils 0.9 % 10/06/2019 8:52 [facility] % Basophils 0.4 % 10/06/2019 8:52 [facility] % Immature Grans 1.5 % 10/06/19 20 8:52 [facility] Absolute Neutrophils 11.08(H) 2.20 - 8.85 K/cmm 10/06/2019 8:52 EDT [facility] Absolute Lymphocytes 1.54 1.09 - 3.30 K/cmm 10/06/2019 8:52 EDT [facility] Absolute Monocytes 0.79 0.10 - 0.80 K/cmm 10/06/2019 8:52 EDT [facility] Absolute Eosinophils 0.13 0.03 - 0.61 K/cmm 10/06/2019 8:52 EDT [facility] ABS Basophils 0.05 0.01 - 0.11 K/cmm 10/06/2019 8:52 [facility] Absolute Immature Grans 0.21(H) 0.00 - 0.06 K/cmm 10/06/2019 8:52 EDT [facility] Type of Differential: Auto 10/06/2019 8:52 T [facility] Blood VENOUS BLOOD / Unknown Venipuncture / Unknown 10/06/2019 7:54 EDT 10/06/2019 8:31 EDT us Js Meza MD PACKAGES & DNA PROBE ORDERABLES Final Result [facility] [address] [place] [address] * (ABNORMAL) ELECTROLYTES (10/06/2019 7:54 EDT) Sodium 131(L) 136 - 145 mEq/L 10/06/2019 8:57 EDT [facility] Potassium 3.0(L) 3.5 - 5.0 mEq/L 10/06/2019 8:57 EDT [facility] Chloride 94(L) 96 - 110 mEq/L 10/06/2019 8:57 EDT [facility] CO2 Total 30 22 - 32 mEq/L 10/06/2019 8:57 EDT [facility] Blood VENOUS BLOOD / Unknown Venipuncture / Unknown 10/06/2019 7:54 EDT 10/06/2019 8:31 EDT us Js Meza MD CHEMISTRY & BLOOD GAS ORDERABLES Final Result [facility] [address] [place] [address] * (ABNORMAL) CREATININE (10/06/2019 7:54 EDT) Creatinine 0.51(L) 0.66 - 1.25 mg/dL 10/06/2019 8:57 EDT [facility] eGFR 119 >60 mL/min/1.7 3m2 10/06/2019 8:57 EDT [facility] Comment:eGFR calculated sarahi krishnan CKD-EPI equation for non- Americans. Multiply eGFR by 1.16 for patients. Blood VENOUS BLOOD / Unknown Venipuncture / Unknown 10/06/2019 7:54 EDT 10/06/2019 8:31 EDT us Js Meza MD CHEMISTRY & BLOOD GAS ORDERABLES Final Result Performing Organization Address City/[facility]/ZIP Co de Phone Number [facility] [address] [place] [address] * (ABNORMAL) BUN (10/06/2019 7:54 EDT) [facility] BUN 6(L) 10 - 26 mg/dL 10/06/2019 8:57 EDT [facility] Blood VENOUS BLOOD / Unknown Venipuncture / Unknown 10/06/2019 7:54 EDT 10/06/2019 8:31 EDT us Js Meza MD CHEMISTRY & BLOOD GAS ORDERABLES Final Result [facility] [address] [place] [id number] * (ABNORMAL) POCT GLUCOSE, INTERFACED (10/05/2019 22:07 EDT) Glucose, POC 159(H) 70 - 100 mg/dL 10/05/2019 22:07 EDT [facility] 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 ID [id number] 10/05/2019 22:07 EDT [facility] HN LAB POC COMMENT (GLUCOSE) Test Performed by Nursing Services 10/05/2019 22:07 EDT [facility] Blood CAPILLARY BLOOD / Unknown 10/05/2019 22:07 EDT 10/05/2019 22:07 EDT us Alfaro Carol Christian DP POINT OF CARE TEST ORDERABLES F inal Result Performing Organization Address [facility]/ZIP Co de Phone Number [facility] [address] [place] [address] * (ABNORMAL) POCT GLUCOSE, INTERFACED (10/05/2019 19:11 EDT) Glucose, POC 211(H) 70 - 100 mg/dL 10/05/2019 19:12 EDT [facility] 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 ID [id number] 10/05/2019 19:12 EDT [facility] HN LAB POC COMMENT (GLUCOSE) Test Performed by Nursing Services 10/05/2019 19:12 EDT [facility] Blood CAPILLARY BLOOD / Unknown 10/05/2019 19:11 EDT 10/05/2019 19:12 EDT us Angelina Gonzales [facility] POINT OF CARE TEST ORDERABLES F inal Result Performing Organization Address [facility] Co de Phone Number [facility] [address] [place] [address] * (ABNORMAL) ANAEROBE CULTURE/SMEAR(INC. AEROBES), OTHER (10/05/2019 13:36 EDT) Organism ID Moderate Streptococcus anginosus group(A) 10/10/2019 14:01 EDT [facility] Comment: Penicillin and ampicillin are drugs of choice for treatment of beta hemolytic streptococcal infections. [place] morphology consistent with other culture from same site/ source collected on the same day. Organism ID Enterococcus avium(A) 10/10/2019 14:01 EDT [facility] Comment:[place] morphology co nsistent with other culture from same site/ source collected on the same day. Organism ID Few Escherichia coli(A) 10/10/2019 14:01 EDT [facility] Comment:[place] morphology co nsistent with other culture from same site/ source collected on the same day. Organism ID Few Staphylococcus aureus(A) 10/10/2019 14:01 EDT [facility] Comment: Susceptible to nafcillin, cephalosporins and other beta lactam antibiotics (mecA gene product absent). [place] morphology consistent with other culture from same site/ source collected on the same day. Organism ID Moderate aerobic Gram positive bacilli(A) 10/10/2019 14:01 EDT [facility] Organism ID Few Alcaligenes faecalis(A) 10/10/2019 14:01 EDT [facility] Comment:[place] morphology co nsistent with other culture from same site/ source collected on the same day. Organism ID Heavy Mixed anaerobic growth, including Bacteroides fragilis group. [place] morphology consistent with other culture from same site/ source collected on the same day. (A) 10/10/2019 14:01 EDT [facility] Organism ID Heavy Streptococcus intermedius(A) 10/10/2019 14:01 EDT [facility] Comment:[place] morphology co nsistent with other culture from same site/ source collected on the same day. Smear Many Neutrophils Present(A) 10/10/2019 14:01 EDT [facility] Smear Many Mixed gram positive and gram negative organisms(A) 10/10/2019 14:01 EDT [facility] Tissue SOFT TISSUE / Unknown 10/05/2019 13:36 EDT 10/05/2019 14:26 EDT Virgilio Ramirez MD MICROBIOLOGY - GENERAL O RDERABLES Final Result [facility] [address] [place] [address] * (ABNORMAL) ANAEROBE CULTURE/SMEAR(INC. AEROBES), OTHER (10/05/2019 13:35 EDT) Organism ID Moderate Streptococcus anginosus group(A) 0 13:54 EDT [facility] Comment: Penicillin and ampicillin are drugs of choice for treatment of beta hemolytic streptococcal infections. [place] morphology consistent with other culture from same site/ source collected on the same day. Organism ID Few Staphylococcus aureus(A) 0 13:54 EDT [facility] Comment: Susceptible to nafcillin, cephalosporins and other beta lactam antibiotics (mecA gene product absent). [place] morphology consistent with other culture from same site/ source collected on the same day. Organism ID Rare Staphylococcus simulans(A) VITEK SUSCEPTIBILITY 0 13:54 EDT [facility] Organism ID Rare Alcaligenes faecalis(A) 0 13:54 EDT [facility] Comment:[place] morphology co nsistent with other culture from same site/ source collected on the same day. Organism ID Heavy Mixed anaerobic growth, including Bacteroides fragilis group. [place] morphology consistent with other culture from same site/ source collected on the same day. (A) 0 13:54 EDT [facility] Organism ID Heavy Streptococcus intermedius(A) 0 13:54 EDT [facility] Comment:[place] morphology co nsistent with other culture from same site/ source collected on the same day. Organism ID Few Enterococcus avium(A) 0 13:54 EDT [facility] Comment:[place] morphology co nsistent with other culture from same site/ source collected on the same day. Smear Moderate Neutrophils Present(A) 0 13:54 EDT [facility] Smear Moderate Mixed gram positive and gram negative organisms(A) 0 13:54 T [facility] Tissue SPECIMEN FROM BONE / Unknown 10/05/2019 13:35 EDT 10/05/2019 14:26 EDT Narrative Organism Antibiotic Method Susceptibility Staphylococcus simulans Cefazolin VITEK SUSCEPTIBILITY Deduced Susceptible Staphylococcus simulans Clindamycin VITEK SUSCEPTIBILITY Resistant Staphylococcus simulans Erythromycin VITEK SUSCEPTIBILITY Resistant Staphylococcus simulans Oxacillin VITEK SUSCEPTIBILITY <=0.25 ug/mL: Susceptible Staphylococcus simulans Trimethoprim-Sulfame thoxazole VITEK SUSCEPTIBILITY <=10 ug/mL: Susceptible Staphylococcus simulans Vancomycin VITEK SUSCEPTIBILITY <=0.5 ug/mL: Susceptible Virgilio Ramirez MD MICROBIOLOGY - GENERAL O RDERABLES Final Result [facility] [address] [place] [address] * (ABNORMAL) ANAEROBE CULTURE/SMEAR(INC. AEROBES), OTHER (10/05/2019 13:34 EDT) Organism ID Moderate Streptococcus anginosus group(A) 0 13:42 EDT [facility] Comment:Penicillin and ampic illin are drugs of choice for treatment of beta hemolytic streptococcal infections. Organism ID Few Enterococcus avium(A) VITEK SUSCEPTIBILITY 0 13:42 EDT [facility] Comment:For ampicillin susce ptible enterococci, the preferred treatment is ampicillin (with an aminoglycoside for serious infections). Organism ID Few Escherichia coli(A) VITEK SUSCEPTIBILITY 0 13:42 EDT [facility] Organism ID Few Staphylococcus aureus(A) VITEK SUSCEPTIBILITY 0 13:42 EDT [facility] Comment:Susceptible to nafci llin, cephalosporins and other beta lactam antibiotics (mecA gene product absent). Organism ID Few Alcaligenes faecalis(A) 0 13:42 EDT [facility] Organism ID Moderate Mixed anaerobic growth, including Bacteroides fragilis group.(A) 0 13:42 EDT [facility] Smear Many Neutrophils Present(A) 0 13:42 EDT [facility] Smear Moderate Mixed gram positive and gram negative organisms(A) 0 13:42 EDT [facility] Tissue SPECIMEN FROM BONE / Unknown 10/05/2019 13:34 EDT 10/05/2019 14:25 EDT Narrative Organism Antibiotic Method Susceptibility Enterococcus avium Ampicillin VITEK SUSCEPTIBILITY <=2 ug/mL: Susceptible Enterococcus avium Vancomycin VITEK SUSCEPTIBILITY <=0.5 ug/mL: Susceptible Escherichia coli Amikacin VITEK SUSCEPTIBILITY <=2 ug/mL: Susceptible Escherichia coli Ampicillin VITEK SUSCEPTIBILITY 8 ug/mL: Susceptible Escherichia coli Ampicillin Sulbactam VITEK SUSCEPTIBI LITY <=2 ug/mL: Susceptible Escherichia coli Ceftazidime VITEK SUSCEPTIBILITY <=1 ug/mL: Susceptible Escherichia coli Ceftriaxone VITEK SUSCEPTIBILITY <=1 ug/mL: Susceptible Escherichia coli Ciprofloxacin VITEK SUSCEPTIBILITY <=0.25 ug/mL: Susceptible Escherichia coli Ertapenem VITEK SUSCEPTIBILITY <=0.5 ug/mL: Susceptible Escherichia coli Gentamicin VITEK SUSCEPTIBILITY <=1 ug/mL: Susceptible Escherichia coli Meropenem VITEK SUSCEPTIBILITY <=0.25 ug/mL: Susceptible Escherichia coli Piperacillin Tazobactam VITEK SUSCEPTIBILITY <=4 ug/mL: Susceptible Escherichia coli Tobramycin VITEK SUSCEPTIBILITY <=1 ug/mL: Susceptible Escherichia coli Trimethoprim-Sulfame t hoxazole VITEK SUSCEPTIBILITY <=20 ug/mL: Susceptible Staphylococcus aureus Cefazolin VITEK SUSCEPTIBILIT Y Deduced Susceptible Staphylococcus aureus Clindamycin VITEK SUSCEPTIBILIT Y 0.25 ug/mL: Susceptible Staphylococcus aureus Erythromycin VITEK SUSCEPTIBILIT Y <=0.25 ug/mL: Susceptible Staphylococcus aureus Oxacillin VITEK SUSCEPTIBILIT Y <=0.25 ug/mL: Susceptible Staphylococcus aureus Trimethoprim-Sulfa met hoxazole VITEK SUSCEPTIBILITY <=10 ug/mL: Susceptible Staphylococcus aureus Tetracycline VITEK SUSCEPTIBILIT Y <=1 ug/mL: Susceptible Staphylococcus aureus Vancomycin VITEK SUSCEPTIBILIT Y 1 ug/mL: Susceptible Alcaligenes faecalis Amikacin MICRO SUSCEPTIBILITY <=8 ug/mL: Susceptible Alcaligenes faecalis Cefepime MICRO SUSCEPTIBILITY 8 ug/mL: Susceptible Alcaligenes faecalis Ceftazidime MICRO SUSCEPTIBILITY 4 ug/mL: Susceptible Alcaligenes faecalis Ciprofloxacin MICRO SUSCEPTIBILIT Y 1 ug/mL: Susceptible Alcaligenes faecalis Gentamicin MICRO SUSCEPTIBILITY <=2 ug/mL: Susceptible Alcaligenes faecalis Meropenem MICRO SUSCEPTIBILITY 0.5 ug/mL: Susceptible Alcaligenes faecalis Piperacillin Tazobactam MICRO SUSCEPTIBILITY 32 ug/mL: Intermediate Alcaligenes faecalis Trimethoprim-Sulfam et hoxazole MICRO SUSCEPTIBILITY >=8 ug/mL: Resistant Alcaligenes faecalis Tobramycin MICRO SUSCEPTIBILITY 8 ug/mL: Intermediate us Virgilio Ramirez MD MICROBIOLOGY - GENERAL O RDERABLES Final Result [facility] [address] [place] [address] * (ABNORMAL) POCT GLUCOSE, INTERFACED (10/05/2019 11:03 EDT) Glucose, POC 130(H) 70 - 100 mg/dL 10/05/2019 11:04 EDT [facility] 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 ID [id number] 10/05/2019 11:04 EDT [facility] HN LAB POC COMMENT (GLUCOSE) Test Performed by Nursing Services 10/05/2019 11:04 EDT [facility] Blood CAPILLARY BLOOD / Unknown 10/05/2019 11:03 EDT 10/05/2019 11:04 EDT us Js Meza MD POINT OF CARE TEST ORDERABLES Fi nal Result [facility] [address] [place] [address] * (ABNORMAL) GLUCOSE, SERUM (10/05/2019 7:22 EDT) Glucose 150(H) 70 - 100 mg/dL 10/05/2019 8:26 EDT [facility] Blood VENOUS BLOOD / Unknown Venipuncture / Unknown 10/05/2019 7:22 EDT 10/05/2019 7:53 EDT us Js Meza MD CHEMISTRY & BLOOD GAS ORDERABLES Final Result [facility] [address] [place] [address] * (ABNORMAL) COMPLETE BLOOD COUNT AND DIFFERENTIAL (10/05/2019 7:22 EDT) WBC 14.09(H) 4.00 - 10.40 K/cmm 10/05/2019 8:08 EDT [facility] RBC 4.00(L) 4.36 - 5.78 M/cmm 10/05/2019 8:08 EDT [facility] Hemoglobin 12.2(L) 13.8 - 17.3 gm/dL 10/05/2019 8:08 EDT [facility] HCT 34.6(L) 39.5 - 50.2 % 10/05/2019 8:08 [facility] MCV 87 81 - 95 fl 10/05/2019 8:08 [facility] MCH 30.5 27.6 - 33.0 pg 10/05/2019 8:08 [facility] MCHC 35.3 32.8 - 36.4 gm/dL 10/05/2019 8:08 [facility] RDW-CV 12.2 <14.2 % 10/05/2019 8:08 [facility] RDW-SD 38.9 <46.0 fl 10/05/2019 8:08 [facility] PLT 295 141 - 377 K/cmm 10/05/2019 8:08 [facility] MPV 10.2 9.5 - 12.7 fl 10/05/2019 8:08 [facility] % Neutrophils 81.1 % 10/05/2019 8:08 [facility] % Lymphocytes 11.5 % 10/05/2019 8:08 [facility] % Monocytes 5.0 % 10/05/2019 8:08 [facility] % Eosinophils 0.9 % 10/05/2019 8:08 [facility] % Basophils 0.4 % 10/05/2019 8:08 [facility] % Immature Grans 1.1 % 10/05/19 20 8:08 [facility] Absolute Neutrophils 11.43(H) 2.20 - 8.85 K/cmm 10/05/2019 8:08 [facility] Absolute Lymphocytes 1.62 1.09 - 3.30 K/cmm 10/05/2019 8:08 [facility] Absolute Monocytes 0.71 0.10 - 0.80 K/cmm 10/05/2019 8:08 [facility] Absolute Eosinophils 0.13 0.03 - 0.61 K/cmm 10/05/2019 8:08 [facility] ABS Basophils 0.05 0.01 - 0.11 K/cmm 10/05/2019 8:08 EDT [facility] Absolute Immature Grans 0.15(H) 0.00 - 0.06 K/cmm 10/05/2019 8:08 EDT [facility] Type of Differential: Auto 10/05/2019 8:08 T [facility] Blood VENOUS BLOOD / Unknown Venipuncture / Unknown 10/05/2019 7:22 EDT 10/05/2019 7:53 EDT us Js Meza MD PACKAGES & DNA PROBE ORDERABLES Final Result [facility] [address] [place] [address] * (ABNORMAL) ELECTROLYTES (10/05/2019 7:22 EDT) Sodium 133(L) 136 - 145 mEq/L 10/05/2019 8:35 EDT [facility] Potassium 3.7 3.5 - 5.0 mEq/L 10/05/2019 8:35 T [facility] Comment:Slight hemolysis terry ntified, interpret with caution as hemolysis will elevate potassium result. Chloride 96 96 - 110 mEq/L 10/05/2019 8:35 T [facility] CO2 Total 27 22 - 32 mEq/L 10/05/2019 8:35 EDT [facility] Blood VENOUS BLOOD / Unknown Venipuncture / Unknown 10/05/2019 7:22 EDT 10/05/2019 7:53 EDT us Js Meza MD CHEMISTRY & BLOOD GAS ORDERABLES Final Result [facility] [address] [place] [address] * (ABNORMAL) CREATININE (10/05/2019 7:22 EDT) Creatinine 0.50(L) 0.66 - 1.25 mg/dL 10/05/2019 8:26 EDT [facility] eGFR 120 >60 mL/min/1.7 3m2 10/05/2019 8:26 EDT [facility] Comment:eGFR calculated sarahi krishnan CKD-EPI equation for non- Americans. Multiply eGFR by 1.16 for patients. Blood VENOUS BLOOD / Unknown Venipuncture / Unknown 10/05/2019 7:22 EDT 10/05/2019 7:53 EDT us Js Meza MD CHEMISTRY & BLOOD GAS ORDERABLES Final Result Performing Organization Address City/[facility]/ZIP Co de Phone Number [facility] [address] [place] [address] * BUN (10/05/2019 7:22 EDT) BUN 12 10 - 26 mg/dL 10/05/2019 8:35 EDT [facility] Comment: Slight hemolysis identified, interpret with caution as results may be affected due to hemolysis. Blood VENOUS BLOOD / Unknown Venipuncture / Unknown 10/05/2019 7:22 EDT 10/05/2019 7:53 EDT us Js Meza MD CHEMISTRY & BLOOD GAS ORDERABLES Final Result Performing Organization Address [facility] Co de Phone Number [facility] [address] [place] [phone] * (ABNORMAL) POCT GLUCOSE, INTERFACED (10/05/2019 5:14 EDT) Glucose, POC 196(H) 70 - 100 mg/dL 10/05/2019 6:45 EDT [facility] 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 ID [id number] 10/05/2019 6:45 EDT [facility] HN LAB POC COMMENT (GLUCOSE) Test Performed by Nursing Services 10/05/2019 6:45 EDT [facility] Blood CAPILLARY BLOOD / Unknown 10/05/2019 5:14 EDT 10/05/2019 6:45 EDT us Js Meza MD POINT OF CARE TEST ORDERABLES Fi nal Result Performing Organization Address [facility]/ZIP Co de Phone Number [facility] [address] [place] [id number] * (ABNORMAL) POCT GLUCOSE, INTERFACED (10/05/2019 1:45 EDT) Glucose, POC 164(H) 70 - 100 mg/dL 10/05/2019 3:31 EDT [facility] 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 ID [id number] 10/05/2019 3:31 EDT [facility] HN LAB POC COMMENT (GLUCOSE) Test Performed by Nursing Services 10/05/2019 3:31 EDT [facility] Blood CAPILLARY BLOOD / Unknown 10/05/2019 1:45 EDT 10/05/2019 3:31 EDT Sachin Castle MD POINT OF CARE TEST ORDERABL ES Final Result [facility] [address] [place] [address] * (ABNORMAL) POCT GLUCOSE, INTERFACED (10/04/2019 23:42 EDT) Glucose, POC 173(H) 70 - 100 mg/dL 10/04/2019 23:44 EDT [facility] 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 ID [id number] 10/04/2019 23:44 EDT [facility] HN LAB POC COMMENT (GLUCOSE) Test Performed by Nursing Services 10/04/2019 23:44 EDT [facility] Blood CAPILLARY BLOOD / Unknown 10/04/2019 23:42 EDT 10/04/2019 23:43 EDT Virgilio Ramirez MD POINT OF CARE TEST ORDER ELIU Final Result [facility] [address] [place] [address] * (ABNORMAL) POCT GLUCOSE, INTERFACED (10/04/2019 22:05 EDT) Glucose, POC 203(H) 70 - 100 mg/dL 10/04/2019 22:06 EDT [facility] 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 ID [id number] 10/04/2019 22:06 EDT [facility] HN LAB POC COMMENT (GLUCOSE) Test Performed by Nursing Services 10/04/2019 22:06 EDT [facility] Blood CAPILLARY BLOOD / Unknown 10/04/2019 22:05 EDT 10/04/2019 22:06 EDT Sachin Castle MD POINT OF CARE TEST ORDERABL ES Final Result Performing Organization Address [facility]/ZIP Co de Phone Number [facility] [address] [place] [address] * (ABNORMAL) POCT GLUCOSE, INTERFACED (10/04/2019 20:07 EDT) Glucose, POC 257(H) 70 - 100 mg/dL 10/04/2019 20:12 EDT [facility] 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 ID [id number] 10/04/2019 20:12 EDT [facility] HN LAB POC COMMENT (GLUCOSE) Test Performed by Nursing Services 10/04/2019 20:12 EDT [facility] Blood CAPILLARY BLOOD / Unknown 10/04/2019 20:07 EDT 10/04/2019 20:11 EDT Js Meza MD POINT OF CARE TEST ORDERABLES Fi nal Result Performing Organization Address [facility] de Phone Number [facility] [address] [place] [address] * (ABNORMAL) BACTERIAL CULTURE - FOR [facility] MICRO LAB USE ONLY (10/04/2019 17:44 EDT) Organism ID Moderate Staphylococcus aureus(A) VITEK SUSCEPTIBILITY 0 12:23 EDT [facility] Comment:Susceptible to nafci llin, cephalosporins and other beta lactam antibiotics (mecA gene product absent). Swab ENTIRE NARIS / Unknown Swab / Unknown 10/04/2019 17:44 EDT 10/04/2019 21:58 EDT Virgilio Ramirez MD MICROBIOLOGY - GENERAL O RDERABLES Final Result Performing Organization Address City/[facility]/ZIP Co de Phone Number [facility] [address] [place] [address] * (ABNORMAL) POCT GLUCOSE, INTERFACED (10/04/2019 17:28 EDT) [facility] Glucose, POC 309(H) 70 - 100 mg/dL 10/04/2019 17:30 EDT [facility] 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 ID [id number] 10/04/2019 17:30 EDT [facility] HN LAB POC COMMENT (GLUCOSE) Test Performed by Nursing Services 10/04/2019 17:30 EDT [facility] Blood CAPILLARY BLOOD / Unknown 10/04/2019 17:28 EDT 10/04/2019 17:30 EDT us Js Meza MD POINT OF CARE TEST ORDERABLES Fi nal Result Performing Organization Address City/[facility]/ZIP Co de Phone Number [facility] [address] [place] [address] * PTT (10/04/2019 14:31 EDT) [facility] PTT 28 26 - 37 secs 10/04/2019 15:12 EDT [facility] Blood VENOUS BLOOD / Unknown Venipuncture / Unknown 10/04/2019 14:31 EDT 10/04/2019 14:36 EDT us Js Meza MD HEMATOLOGY & PF4 ORDERABLES Sobia l Result [facility] [address] [place] [address] * (ABNORMAL) VITAMIN D (25,OH) (10/04/2019 13:02 EDT) [facility] 25OH Vitamin D Tot 13.1(L) 30.0 - 100.0 ng/mL 10/06/2019 11:51 EDT [facility] Comment: Vitamin D 25,OH Interpretive Ranges: Deficiency: ??<10.0 ng/mL Insufficiency: ??10.0 - 30.0 ng/mL Sufficiency: ??30.0 - 100.0 ng/mL Toxicity: ??>100.0 ng/mL Blood VENOUS BLOOD / Unknown Venipuncture / Unknown 10/04/2019 13:02 EDT 10/04/2019 13:49 EDT us Js Meza MD CHEMISTRY & BLOOD GAS ORDERABLES Final Result [facility] [address] [place] [address] * CALCIUM (10/04/2019 13:02 EDT) Calcium 8.7 8.5 - 10.5 mg/dL 10/04/2019 14:17 EDT [facility] Calculated Calcium 9.5 8.5 - 10.5 mg/dL 10/04/2019 14:17 EDT [facility] Blood VENOUS BLOOD / Unknown Venipuncture / Unknown 10/04/2019 13:02 EDT 10/04/2019 13:49 EDT us Js Meza MD CHEMISTRY & BLOOD GAS ORDERABLES Final Result Performing Organization Address City/[facility]/ZIP Co de Phone Number [facility] [address] [place] [address] * ALKALINE PHOSPHATASE (10/04/2019 13:02 EDT) Alkaline Phosphatase 115 38 - 126 U/L 10/04/2019 14:17 EDT [facility] Blood VENOUS BLOOD / Unknown Venipuncture / Unknown 10/04/2019 13:02 EDT 10/04/2019 13:49 EDT us Js Meza MD CHEMISTRY & BLOOD GAS ORDERABLES Final Result Performing Organization Address City/[facility]/ZIP Co de Phone Number [facility] [address] [place] [address] * (ABNORMAL) PREALBUMIN (10/04/2019 13:02 EDT) Prealbumin 6(L) 20 - 40 mg/dL 10/06/2019 9:34 EDT [facility] Blood VENOUS BLOOD / Unknown Venipuncture / Unknown 10/04/2019 13:02 EDT 10/04/2019 13:49 EDT us Js Meza MD CHEMISTRY & BLOOD GAS ORDERABLES Final Result [facility] [address] [place] [address] * PHOSPHORUS (10/04/2019 13:02 EDT) Phosphorus 3.8 2.5 - 4.5 mg/dL 10/04/2019 14:17 EDT [facility] Blood VENOUS BLOOD / Unknown Venipuncture / Unknown 10/04/2019 13:02 EDT 10/04/2019 13:49 EDT us Js Meza MD CHEMISTRY & BLOOD GAS ORDERABLES Final Result [facility] [address] [place] [address] * MAGNESIUM (10/04/2019 13:02 EDT) Magnesium 2.0 1.7 - 2.8 mg/dL 10/04/2019 14:17 EDT [facility] Blood VENOUS BLOOD / Unknown Venipuncture / Unknown 10/04/2019 13:02 EDT 10/04/2019 13:49 EDT us Js Meza MD CHEMISTRY & BLOOD GAS ORDERABLES Final Result [facility] [address] [place] [address] * (ABNORMAL) ALBUMIN (10/04/2019 13:02 EDT) Albumin 3.0(L) 3.4 - 4.9 g/dL 10/04/2019 14:17 EDT [facility] Blood VENOUS BLOOD / Unknown Venipuncture / Unknown 10/04/2019 13:02 EDT 10/04/2019 13:49 EDT Js Meza MD CHEMISTRY & BLOOD GAS ORDERABLES Final Result Performing Organization Address City/[facility]/ZIP Co de Phone Number [facility] [address] [place] [address] * (ABNORMAL) HEMOGLOBIN A1C (10/04/2019 13:02 EDT) Hemoglobin A1c 15.9(H) <5.7 % 10/06/2019 9:09 EDT [facility] Comment: Glycemic Status References: Normal: ??<5.7% Pre-Diabetes: ??5.7% - 6.4% Diagnostic of Diabetes: ??> or = 6.5% (if confirmed) Goals for glycemic control in diabetics (ADA 2017): <7.0% target for non adults with diabetes. <7.5% target for children and adolescents with Type I Diabetes. More or less stringent targets may be appropriate for individual patients. Est Avg Glucose 410 mg/dL 0 9:09 EDT [facility] Comment:The eAG represents t he A1c result expressed as average glucose in mg/dL. Blood VENOUS BLOOD / Unknown Venipuncture / Unknown 10/04/2019 13:02 EDT 10/04/2019 13:49 EDT us Js Meza MD CHEMISTRY & BLOOD GAS ORDERABLES Final Result [facility] [address] [place] [address] * TYPE AND SCREEN (10/04/2019 13:01 EDT) ABO A 10/04/2019 14:16 EDT [facility] Rh Factor Positive 10/04/2019 14:16 EDT [facility] Antibody Screen Negative 10/04/2019 14:16 EDT [facility] Specimen Expires: 10/07/2019 @ 23:59 10/04/2019 14:16 EDT [facility] Blood VENOUS BLOOD / Unknown Venipuncture / Unknown 10/04/2019 13:01 EDT 10/04/2019 13:33 EDT us Js Meza MD BLOOD BANK TESTS Edited Result - Final [facility] [address] [place] [address] * EKG 12-LEAD (10/04/2019 11:58 EDT) 10/04/2019 11:5 8 EDT Narrative [facility] EKG - 10/08/2019 8:40 EDT ?[facility] Emergency ? Test Date: ?2019-10-04 Pat Name: ? JEFF NARVAEZ ?Department: ?? ED ? Room: ? GT31 Gender: ? Male ? [employer]: ?? [id number] : ?1960 ? Requested By: JAMI RUANO Order Number: [id number] ? Reading : ?? BAKARI MORALES MD ? Measurements Intervals ?Parker ? Rate: ? 93 ? P: ?26 VA: ? 125 ?QRS: ?6 QRSD: ? 106 ?T: ?17 QT: ? 390 ? QTc: ?487 ? Interpretive Statements SINUS RHYTHM No previous ECG available for comparison I reviewed the tracing and have either agreed or edited the findings in this report. Electronically Signed On 10-08-2019 8:40:03 EDT by BAKARI MORALES MD. Procedure Note Bakari Morales MD - 10/08/2019 [facility] Emergency Test Date: 2019-10-04 Pat Name: JEFF NARVAEZ Department: ED Room: 31 Gender: Male [employer]: [id number] : 1960 Requested By: JAMI RUANO Order Number: [id number] Reading MD: BAKARI MORALES MD Measurements Intervals Parker Rate: 93 P: 26 VA: 125 QRS: 6 QRSD: 106 T: 17 QT: 390 QTc: 487 Interpretive Statements SINUS RHYTHM No previous ECG available for comparison I reviewed the tracing and have either agreed or edited the findings inthis report. Electronically Signed On 10-08-2019 8:40:03 EDT by BAKARI HALL. us Js Meza MD CARDIAC ECG ORDERABLES Final Res ult [facility] EKG * XR CHEST 2 VIEWS (10/04/2019 11:31 EDT) Anatomical Region Laterality Modality Computed Radiogr aphy 10/04/2019 11:3 4 EDT Impressions 10/04/2019 11:34 EDT 1. ??Normal chest x-ray. Narrative 10/04/2019 11:34 EDT XR CHEST 2 VIEWS ??10/04/2019 11:30 AM CLINICAL HISTORY/COMMENTS: preoperative COMPARISON: 10/26/2006 TECHNIQUE: Frontal and lateral views of the chest were performed. FINDINGS: Soft tissues and extrathoracic findings: ??No abnormalities. Bones: Normal for age. Cardiac and mediastinal contours: Normal. Lungs: Normal. ?? Pleura/diaphragms: Normal. Procedure Note Ellie Villegas MD - 10/04/2019 XR CHEST 2 VIEWS 10/04/2019 11:30 AM CLINICAL HISTORY/COMMENTS: preoperative COMPARISON: 10/26/2006 TECHNIQUE: Frontal and lateral views of the chest were performed. FINDINGS: Soft tissues and extrathoracic findings: No abnormalities. Bones: Normal for age. Cardiac and mediastinal contours: Normal. Lungs: Normal. Pleura/diaphragms: Normal. IMPRESSION 1. Normal chest x-ray. us Js Meza MD IMG DIAGNOSTIC IMAGING ORDERABLE S Final Result * MR BASS W WO CONTRAST RIGHT (10/04/2019 11:14 EDT) Anatomical Region Laterality Modality Lower Extremities Right Magnetic Reson ance 10/05/2019 9:46 EDT Impressions 10/05/2019 9:46 EDT 1. ??Abnormal proximal 2nd phalanx, likely necrotic bone as sequela of osteomyelitis, with adjacent gas, pockets of fluid.. 2. ??Diffuse soft tissue edema with multiple foci of gas over the dorsal aspect of the right forefoot and midfoot concerning for progressive soft tissue infection.. 3. ??Focal area of STIR hyperintensity over the plantar aspect of the foot between the 1st and 2nd metatarsals without circumscribed rim enhancement, likely confluent edema in and adjacent to ulcer. 4. ??Marrow edema and heterogeneous enhancement of the 2nd and 3rd metatarsal heads concerning for osteomyelitis. I have personally reviewed the images and the above interpretation and agree with the findings. Narrative 10/05/2019 9:46 EDT MR FOOT W WO CONTRAST RIGHT ??10/04/2019 9:20 AM Signs and Symptoms/Comments: ?? Concern for NSTI Comparison: Right foot radiographs on 10/04/2019 and 10/03/2019 Technique: ?? Multiplanar, multisequence MR images of the right foot were obtained prior to and following the intravenous administration of contrast. Findings: There is heterogeneous low T1 and T2 signal of the distal phalanx 2nd toe, with absent enhancement, adjacent gas and small pockets of fluid/debris. There is STIR/T2 hyperintensity in the 2nd and 3rd metatarsal heads,, with heterogeneous enhancement, small areas of diminished T1 signal. Mild nonspecific marrow edema extends into the shafts of these bones. There is diffuse soft tissue edema with multiple signal voids indicating foci of gas over the dorsal aspect of the right foot. There is a focal area of STIR hyperintensity and T1 hypointensity over the plantar aspect of the foot between the 1st and 2nd metatarsals without rim enhancement, vicinity of ulcer. Mid and distal phalanx 2nd toe absent, consistent with prior amputation. Procedure Note Catalino Gonzalez MD - 10/05/2019 MR FOOT W WO CONTRAST RIGHT 10/04/2019 9:20 AM Signs and Symptoms/Comments: Concern for NSTI Comparison: Right foot radiographs on 10/04/2019 and 10/03/2019 Technique: Multiplanar, multisequence MR images of the right foot were obtained priorto and following the intravenous administration of contrast. Findings: There is heterogeneous low T1 and T2 signal of the distal phalanx 2nd toe,with absent enhancement, adjacent gas and small pockets of fluid/debris. There is STIR/T2 hyperintensity in the 2nd and 3rd metatarsal heads,, withheterogeneous enhancement, small areas of diminished T1 signal. Mildnonspecific marrow edema extends into the shafts of these bones. There is diffuse soft tissue edema with multiple signal voids indicatingfoci of gas over the dorsal aspect of the right foot. There is a focal area of STIR hyperintensity and T1 hypointensity over theplantar aspect of the foot between the 1st and 2nd metatarsals without rimenhancement, vicinity of ulcer. Mid and distal phalanx 2nd toe absent, consistent with prior amputation. IMPRESSION 1. Abnormal proximal 2nd phalanx, likely necrotic bone as sequela ofosteomyelitis, with adjacent gas, pockets of fluid.. 2. Diffuse soft tissue edema with multiple foci of gas over the dorsalaspect of the right forefoot and midfoot concerning for progressive softtissue infection.. 3. Focal area of STIR hyperintensity over the plantar aspect of the footbetween the 1st and 2nd metatarsals without circumscribed rim enhancement,likely confluent edema in and adjacent to ulcer. 4. Marrow edema and heterogeneous enhancement of the 2nd and 3rdmetatarsal heads concerning for osteomyelitis. I have personally reviewed the images and the above interpretation andagree with the findings. us Js Meza MD [facility] ORDERABLES Final Result * (ABNORMAL) POCT GLUCOSE, INTERFACED (10/04/2019 9:40 EDT) Glucose, POC 269(H) 70 - 100 mg/dL 10/04/2019 9:41 EDT [facility] 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 ID [id number] 10/04/2019 9:41 EDT [facility] HN LAB POC COMMENT (GLUCOSE) Test Performed by Nursing Services 10/04/2019 9:41 EDT [facility] Blood CAPILLARY BLOOD / Unknown 10/04/2019 9:40 EDT 10/04/2019 9:41 EDT us Makeda Padron MD POINT OF CARE TEST ORDERAB LES Final Result [facility] [address] [place] [id number] * XR TIBIA FIBULA RIGHT 2 VIEWS (10/04/2019 4:35 EDT) Anatomical Region Laterality Modality Lower Extremities Computed Radio graphy 10/04/2019 9:52 EDT Narrative 10/04/2019 9:52 EDT XR TIBIA FIBULA RIGHT 2 VIEWS ??10/04/2019 4:20 AM Signs And Symptoms/Comments: evaluation of pain Comparison: None Technique: 2 views of the right tibia and fibula Findings: Alignment is satisfactory. There is no fracture. There is a well-circumscribed calcification in the soft tissues of the medial calf. There is a focus of air on the dorsal aspect of the right foot. Arthrosis is present at the posterior aspect of the talocalcaneal joint. Other mild degenerative changes are present in the hindfoot. Enthesopathic changes are present on the axial at the insertion of the plantar aponeurosis. I have personally reviewed the images and the above interpretation and agree with the findings. Procedure Note Ellie Villegas MD - 10/04/2019 XR TIBIA FIBULA RIGHT 2 VIEWS 10/04/2019 4:20 AM Signs And Symptoms/Comments: evaluation of pain Comparison: None Technique: 2 views of the right tibia and fibula Findings: Alignment is satisfactory. There is no fracture. There is awell-circumscribed calcification in the soft tissues of the medial calf.There is a focus of air on the dorsal aspect of the right foot. Arthrosisis present at the posterior aspect of the talocalcaneal joint. Other milddegenerative changes are present in the hindfoot. Enthesopathic changesare present on the axial at the insertion of the plantar aponeurosis. I have personally reviewed the images and the above interpretation andagree with the findings. us Luke Seeker Kelsie DIAGNOSTIC IMAGING ORDERABLE S Final Result * (ABNORMAL) ANAEROBE CULTURE/SMEAR(INC. AEROBES), OTHER (10/04/2019 2:22 EDT) Organism ID Heavy mixed aerobic and anaerobic growth, including Bacteroides fragilis group(A) 10/09/2019 11:58 EDT [facility] Smear Many Neutrophils Present(A) 10/09/2019 11:58 EDT [facility] Smear Many Mixed gram positive and gram negative organisms(A) 10/09/2019 11:58 EDT [facility] Tissue ENTIRE FOOT / Unknown Collection, Other / Unknown 10/04/2019 2:22 EDT 10/04/2019 7:29 EDT Makeda Padron MD MICROBIOLOGY - GENERAL ORD ERABLES Final Result Performing Organization Address [facility]/ZIP Co de Phone Number [facility] [address] [place] [address] * COVID-19 TEST [facility] PCR (10/03/2019 22:56 EDT) Swab ENTIRE NASOPHARYNX / Unknown Swab / Unknown 10/03/2019 22:56 EDT 10/03/2019 23:15 EDT Makeda Padron MD MICROBIOLOGY - GENERAL ORD ERABLES Final Result Performing Organization Address [facility] Co de Phone Number [facility] [address] [place] [address] * COVID-19 TESTING (10/03/2019 22:56 EDT) COVID-19 rt-PCR Result Negative Negative 10/04/2019 2:19 EDT [facility] Comment: This test has not [...] history, and epidemiological information. Performed on the [employer] [place] Fusion instrument Performing Lab [place] [facility] Lab 10/04/2019 2:19 EDT [facility] Swab ENTIRE NASOPHARYNX / Unknown Swab / Unknown 10/03/2019 22:56 EDT 10/03/2019 23:15 EDT us Makeda Padron MD MICROBIOLOGY - GENERAL ORD ERABLES Final Result [facility] [address] [place] [address] * XR FOOT RIGHT 3 OR MORE VIEWS (10/03/2019 22:54 EDT) Anatomical Region Laterality Modality Lower Extremities Right Computed Radio graphy 10/04/2019 9:57 EDT Narrative 10/04/2019 9:57 EDT XR FOOT RIGHT 3 OR MORE VIEWS 10/03/2019 10:30 PM Signs and Symptoms: osteomyelitis Comparison: March 09, 2016 TECHNIQUE: 3 views of the right foot FINDINGS: There is newly increased lucency of the 2nd proximal phalanx as well as the tip of the 2nd metatarsal, in a region of extensive subcutaneous emphysema as well as soft tissue swelling. These findings are concerning for osteomyelitis. The subcutaneous emphysema tracks up the foot, concerning for aggressive soft tissue infection. The remainder of the bones appear well aligned with no acute abnormality. Since the prior study there is interval amputation of the mid and distal 2nd toe. These findings were discussed with MAKEDA PADRON by Dr. Ria Ellington at 10/03/2019 11:15 PM. I have personally reviewed the images and the above interpretation and agree with the findings. Procedure Note Ellie Villegas MD - 10/04/2019 XR FOOT RIGHT 3 OR MORE VIEWS 10/03/2019 10:30 PM Signs and Symptoms: osteomyelitis Comparison: March 09, 2016 TECHNIQUE: 3 views of the right foot FINDINGS: There is newly increased lucency of the 2nd proximal phalanx aswell as the tip of the 2nd metatarsal, in a region of extensivesubcutaneous emphysema as well as soft tissue swelling. These findings areconcerning for osteomyelitis. The subcutaneous emphysema tracks up thefoot, concerning for aggressive soft tissue infection. The remainder of the bones appear well aligned with no acute abnormality.Since the prior study there is interval amputation of the mid and [id number] toe. These findings were discussed with MAKEDA PADRON by Dr. Ribeiro at 10/03/2019 11:15 PM. I have personally reviewed the images and the above interpretation andagree with the findings. us Makeda Padron MD IMG DIAGNOSTIC IMAGING ORD ERABLES Final Result * BACTERIAL CULTURE, BLOOD (10/03/2019 22:40 EDT) Organism ID No Growth at 5 days 10/08/2019 23:00 EDT [facility] Blood VENOUS BLOOD / Unknown Blood Culture / Unknown 10/03/2019 22:40 EDT 10/03/2019 22:53 EDT us Makeda Padron MD MICROBIOLOGY - GENERAL ORD ERABLES Final Result [facility] [address] [place] [address] * (ABNORMAL) POCT URINE DIPSTICK, CLINITEK (10/03/2019 22:38 EDT) Color, UA Yellow Yellow 10/03/2019 22:45 EDT [facility] Clarity, UA Clear Clear 10/03/2019 22:45 EDT [facility] Glucose, UA 2+(A) Negative mg/dL 10/03/2019 22:45 T [facility] Bilirubin, UA 1+(A) Negative 10/03/2019 22:45 T [facility] Ketones, UA 1+(A) Negative mg/dL 10/03/2019 22:45 [facility] Specific [place], Urine 1.015 1.001 - 1.035 10/03/2019 22:45 T [facility] Blood, UA Negative Negative 10/03/2019 22:45 EDT [facility] pH, UA 6.0 <=8 10/03/2019 22:45 EDT [facility] Protein, UA 1+(A) Negative mg/dL 10/03/2019 22:45 EDT [facility] Urobilinogen, UA 0.2 0.2 - 1.0 EU/dL 10/03/2019 22:45 EDT [facility] Nitrite, UA Negative Negative 10/03/2019 22:45 EDT [facility] Leuk Esterase Negative Negative 10/03/2019 22:45 EDT [facility] 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 ID [id number] 10/03/2019 22:45 EDT [facility] HN LAB COMMENT (CLINITEK, UR) Test performed at Emergency Department 10/03/2019 22:45 EDT [facility] Urine URINE SPECIMEN OBTAINED BY CLEAN CATCH PROCEDURE / Unknown 10/03/2019 22:38 EDT 10/03/2019 22:45 EDT us Makeda Padron MD POINT OF CARE TEST ORDERAB LES Final Result Performing Organization Address City/[facility]/ZIP Co de Phone Number [facility] [address] [place] [address] * POCT CSN BARCODE URINE DIPSTICK (10/03/2019 22:26 EDT) Hold Hold 10/03/2019 23:31 EDT [facility] Urine URINE SPECIMEN OBTAINED BY CLEAN CATCH PROCEDURE / Unknown Urine Collect / Unknown 10/03/2019 22:26 EDT 10/03/2019 22:26 EDT us Makeda Padron MD LAB INFO SERVICE AND SUPPO RT & PHONE RESULT Final Result [facility] [address] [place] [address] * (ABNORMAL) PROTIME (10/03/2019 22:25 EDT) I.N.R. 1.3(H) 0.9 - 1.1 Ratio 10/04/2019 12:18 EDT [facility] Pro Time 14.6(H) 10.3 - 13.4 secs 10/04/2019 12:18 EDT [facility] Blood VENOUS BLOOD / Unknown Venipuncture / Unknown 10/03/2019 22:25 EDT 10/03/2019 22:36 EDT Narrative [facility] - 10/04/2019 12:18 EDT Moderate Intensity Coumadin INR = 2.0-3.0 Adjustments in anticoagulant therapy dose should be based on the INR and NOT on the Protime. us Js Meza MD HEMATOLOGY & PF4 ORDERABLES Sobia l Result Performing Organization Address City/[facility]/ZIP Co de Phone Number [facility] [address] [place] [address] * MAGNESIUM (10/03/2019 22:25 EDT) Magnesium 2.1 1.7 - 2.8 mg/dL 10/04/2019 10:23 EDT [facility] Blood VENOUS BLOOD / Unknown Venipuncture / Unknown 10/03/2019 22:25 EDT 10/03/2019 22:47 EDT us Js Meza MD CHEMISTRY & BLOOD GAS ORDERABLES Final Result Performing Organization Address [facility] Co de Phone Number [facility] [address] [place] [address] * (ABNORMAL) HEMOGLOBIN A1C (10/03/2019 22:25 EDT) Hemoglobin A1c 15.8(H) <5.7 % 10/06/2019 8:39 EDT [facility] Comment: Glycemic Status References: Normal: ??<5.7% Pre-Diabetes: ??5.7% - 6.4% Diagnostic of Diabetes: ??> or = 6.5% (if confirmed) Goals for glycemic control in diabetics (ADA 2017): <7.0% target for non adults with diabetes. <7.5% target for children and adolescents with Type I Diabetes. More or less stringent targets may be appropriate for individual patients. Est Avg Glucose 407 mg/dL 0 8:39 EDT [facility] Comment:The eAG represents t he A1c result expressed as average glucose in mg/dL. Blood VENOUS BLOOD / Unknown Venipuncture / Unknown 10/03/2019 22:25 EDT 10/03/2019 22:36 EDT us Yadira Cordova MD CHEMISTRY & BLOOD GAS ORDERAB LES Final Result Performing Organization Address [facility] Co de Phone Number [facility] [address] [place] [address] * (ABNORMAL) SED. RATE:WESTERGREN (10/03/2019 22:25 EDT) Pathologist [facility] Sed Rate >100(H) 0 - 20 mm/hr 10/04/2019 0:13 EDT [facility] Blood VENOUS BLOOD / Unknown Venipuncture / Unknown 10/03/2019 22:25 EDT 10/03/2019 22:36 EDT us Js Meza MD HEMATOLOGY & PF4 ORDERABLES Sobia l Result Performing Organization Address [facility] Co de Phone Number [facility] [address] [place] [address] * (ABNORMAL) C REACTIVE PROTEIN (10/03/2019 22:25 EDT) C-Reactive Protein 263.5(H) <10.0 mg/L 10/04/2019 1:17 EDT [facility] Blood VENOUS BLOOD / Unknown Venipuncture / Unknown 10/03/2019 22:25 EDT 10/03/2019 22:47 EDT us Js Meza MD CHEMISTRY & BLOOD GAS ORDERABLES Final Result Performing Organization Address City/[facility] Co de Phone Number [facility] [address] [place] [address] * HOLD BLUE TOP (10/03/2019 22:25 EDT) Hold Hold 10/03/2019 23:46 EDT [facility] Blood VENOUS BLOOD / Unknown Venipuncture / Unknown 10/03/2019 22:25 EDT 10/03/2019 22:36 EDT us Makeda Padron MD LAB INFO SERVICE AND SUPPO RT & PHONE RESULT Final Result [facility] [address] [place] [address] * BLOOD BANK HOLD (10/03/2019 22:25 EDT) Hold BB Spec will exp at 23:59, 3 days from collect date 10/03/2019 22:49 EDT [facility] Blood VENOUS BLOOD / Unknown Venipuncture / Unknown 10/03/2019 22:25 EDT 10/03/2019 22:37 EDT us Makeda Padron MD BLOOD BANK TESTS Final Res ult [facility] [address] [place] [address] * LACTIC ACID (10/03/2019 22:25 EDT) Lactic Acid 1.2 <=2.0 mmol/L 10/03/2019 23:00 EDT [facility] Blood VENOUS BLOOD / Unknown Venipuncture / Unknown 10/03/2019 22:25 EDT 10/03/2019 22:47 EDT us Makeda Padron MD CHEMISTRY & BLOOD GAS ORDE RABLES Final Result [facility] [address] [place] [address] * (ABNORMAL) COMPLETE BLOOD COUNT AND DIFFERENTIAL (10/03/2019 22:25 EDT) WBC 15.23(H) 4.00 - 10.40 K/cmm 10/03/2019 23:38 [facility] RBC 4.18(L) 4.36 - 5.78 M/cmm 10/03/2019 23:38 [facility] Hemoglobin 12.6(L) 13.8 - 17.3 gm/dL 10/03/2019 23:38 [facility] HCT 36.5(L) 39.5 - 50.2 % 10/03/2019 23:38 [facility] MCV 87 81 - 95 fl 10/03/2019 23:38 [facility] [facility] MCH 30.1 27.6 - 33.0 pg 10/03/2019 23:38 [facility] MCHC 34.5 32.8 - 36.4 gm/dL 10/03/2019 23:38 [facility] RDW-CV 12.0 <14.2 % 10/03/2019 23:38 [facility] RDW-SD 38.6 <46.0 fl 10/03/2019 23:38 [facility] PLT 274 141 - 377 K/cmm 10/03/2019 23:38 [facility] MPV 10.5 9.5 - 12.7 fl 10/03/2019 23:38 [facility] % Neutrophils 82.7 % 10/03/2019 23:38 [facility] % Lymphocytes 9.4 % 10/03/2019 23:38 [facility] % Monocytes 6.2 % 10/03/2019 23:38 [facility] % Eosinophils 0.3 % 10/03/2019 23:38 [facility] % Basophils 0.2 % 10/03/2019 23:38 [facility] % Immature Grans 1.2 % 10/03/19 20 23:38 [facility] Absolute Neutrophils 12.61(H) 2.20 - 8.85 K/cmm 10/03/2019 23:38 EDT [facility] Absolute Lymphocytes 1.43 1.09 - 3.30 K/cmm 10/03/2019 23:38 T [facility] Absolute Monocytes 0.94(H) 0.10 - 0.80 K/cmm 10/03/2019 23:38 [facility] Absolute Eosinophils 0.04 0.03 - 0.61 K/cm 10/03/2019 23:38 T [facility] ABS Basophils 0.03 0.01 - 0.11 K/cmm 10/03/2019 23:38 T [facility] Absolute Immature Grans 0.18(H) 0.00 - 0.06 K/cm 10/03/2019 23:38 [facility] Type of Differential: Auto 10/03/2019 23:38 [facility] Blood VENOUS BLOOD / Unknown Venipuncture / Unknown 10/03/2019 22:25 EDT 10/03/2019 22:36 EDT us Makeda Padron MD PACKAGES & DNA PROBE ORDER ELIU Final Result Performing Organization Address City/[facility]/ZIP Co de Phone Number [facility] [address] [place] [address] * (ABNORMAL) GLUCOSE, SERUM (10/03/2019 22:25 EDT) Glucose 357(H) 70 - 100 mg/dL 10/03/2019 23:00 EDT [facility] Blood VENOUS BLOOD / Unknown Venipuncture / Unknown 10/03/2019 22:25 EDT 10/03/2019 22:47 EDT us Makeda Padron MD CHEMISTRY & BLOOD GAS ORDE RABLES Final Result Performing Organization Address [facility]/ZIP Co de Phone Number [facility] [address] [place] [address] * (ABNORMAL) ELECTROLYTES (10/03/2019 22:25 EDT) Sodium 130(L) 136 - 145 mEq/L 10/03/2019 23:00 EDT [facility] Potassium 3.4(L) 3.5 - 5.0 mEq/L 10/03/2019 23:00 EDT [facility] Chloride 87(L) 96 - 110 mEq/L 10/03/2019 23:00 EDT [facility] CO2 Total 29 22 - 32 mEq/L 10/03/2019 23:00 EDT [facility] Blood VENOUS BLOOD / Unknown Venipuncture / Unknown 10/03/2019 22:25 EDT 10/03/2019 22:47 EDT us Makeda Padron MD CHEMISTRY & BLOOD GAS ORDKay ROMERO Final Result [facility] [address] [place] [address] * CREATININE (10/03/2019 22:25 EDT) Creatinine 0.73 0.66 - 1.25 mg/dL 10/03/2019 23:00 EDT [facility] eGFR 103 >60 mL/min/1.7 3m2 10/03/2019 23:00 EDT [facility] Comment:eGFR calculated sarahi krishnan CKD-EPI equation for non- Americans. Multiply eGFR by 1.16 for patients. Blood VENOUS BLOOD / Unknown Venipuncture / Unknown 10/03/2019 22:25 EDT 10/03/2019 22:47 EDT us Makeda Padron MD CHEMISTRY & BLOOD GAS ORDKay ROMERO Final Result [facility] [address] [place] [address] * BUN (10/03/2019 22:25 EDT) BUN 22 10 - 26 mg/dL 10/03/2019 23:00 EDT [facility] Blood VENOUS BLOOD / Unknown Venipuncture / Unknown 10/03/2019 22:25 EDT 10/03/2019 22:47 EDT us Makeda Padron MD CHEMISTRY & BLOOD GAS ORDE RABALEJANDRA Final Result [facility] [address] [place] [address] * BACTERIAL CULTURE, BLOOD (10/03/2019 22:24 EDT) Organism ID No Growth at 5 days 10/08/2019 23:00 EDT [facility] Blood VENOUS BLOOD / Unknown Blood Culture / Unknown 10/03/2019 22:24 EDT 10/03/2019 22:54 EDT us Makeda Padron MD MICROBIOLOGY - GENERAL ORD ERABLES Final Result Performing Organization Address [facility] Co de Phone Number [facility] [address] [place] [address] * (ABNORMAL) POCT GLUCOSE, INTERFACED (10/03/2019 22:05 EDT) Glucose, POC 376(H) 70 - 100 mg/dL 10/03/2019 22:06 EDT [facility] 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 ID [id number] 10/03/2019 22:06 EDT [facility] HN LAB POC COMMENT (GLUCOSE) Test Performed by Nursing Services 10/03/2019 22:06 EDT [facility] Blood CAPILLARY BLOOD / Unknown 10/03/2019 22:05 EDT 10/03/2019 22:06 EDT us Provider Unknown POINT OF CARE TEST ORDERABLE S Final Result Performing Organization Address City/[facility]/ZIP Co de Phone Number [facility] [address] [place] [address] documented in this encounter Visit Diagnoses Diagnosis Acute osteomyelitis of right ankle or foot (HCC-CMS)- Primary Acute osteomyelitis, ankle and foot Osteomyelitis, unspecified site, unspecified type ([facility]) Hyperglycemia Other abnormal glucose Other acute osteomyelitis of right foot ([facility]) Diabetic foot infection ([facility]) Type II or unspecified type diabetes mellitus with other specified manifestations, not stated as uncontrolled Type 2 diabetes mellitus with hyperglycemia, with long-term current use of insulin ([facility]) Acute osteomyelitis of right ankle or foot ([facility]) Acute osteomyelitis, ankle and foot Uncontrolled type 2 diabetes mellitus with hyperglycemia ([facility]) Type 2 diabetes mellitus with diabetic polyneuropathy, with long-term current use of insulin ([facility]) Other acute osteomyelitis of foot, unspecified laterality ([facility]) Type 2 diabetes mellitus with hyperglycemia, without long-term current use of insulin ([facility]) Diabetic foot infection ([facility]) Type II or unspecified type diabetes mellitus with other specified manifestations, not stated as uncontrolled Type 2 diabetes mellitus with diabetic polyneuropathy, with long-term current use of insulin ([facility]) documented in this encounter Admitting Diagnoses Diagnosis Diabetic foot infection ([facility]) Type II or unspecified type diabetes mellitus with other specified manifestations, not stated as uncontrolled Acute osteomyelitis of right ankle or foot ([facility]) Acute osteomyelitis, ankle and foot documented in this encounter Administered Medications Inactive Administered Medications - up to 3 most recent administrations Medication Order MAR Action Action Date Dose Rate Site acetaminophen (TYLENOL) tablet 1,000 mg 1,000 mg, oral, EVERY 6 HOURS, First dose on 10/04/19 at 1300, Until Discontinued, Routine Given 10/05/2019 5:25 EDT 1,000 mg Given 10/04/2019 23:44 EDT 1,000 mg Given 10/04/2019 17:22 EDT 1,000 mg acetaminophen (TYLENOL) tablet 1,000 mg 1,000 mg, oral, PRN, 1 dose, Starting on 10/05/19 at 1356, Until 10/05/19 at 1411, Pain, Routine, Recovery (only) Given 10/05/2019 14:11 EDT 1,000 mg acetaminophen (TYLENOL) tablet 1,000 mg 1,000 mg, oral, EVERY 6 HOURS PRN, Starting on 10/05/19 at 1600, Until 10/15/19 at 1714, Pain, Fever, Routine Given 10/15/2019 13:24 EDT 1,000 mg Given 10/15/2019 5:57 EDT 1,000 mg Given 10/14/2019 20:55 EDT 1,000 mg alteplase (CATHFLO ACTIVASE) injection 2 mg 2 mg, intercatheter, PRN, Starting on Sun10/15/19 at 0903, Until Sun10/15/19 at 1714, Line Care, Routine ampicillin-sulbactam (UNASYN) 3,000 mg in sodium chloride (NS MBP) 100 mL infusion 3,000 mg (3 g), intravenous, Administer over 30 Minutes, EVERY 6 HOURS, 28 doses, First dose on 10/13/19 at 1100, Last dose on Sun10/20/19 at 0500, Routine Given 10/15/2019 5:57 EDT 3,000 mg Given 10/14/2019 23:25 EDT 3,000 mg Given 10/14/2019 17:26 EDT 3,000 mg atorvastatin (LIPITOR) tablet 20 mg 20 mg, oral, DAILY, First dose on 10/04/19 at 1300, Until Discontinued, Routine Given 10/04/2019 13:14 EDT 20 mg cefePIME (MAXIPIME) 2,000 mg in sodium chloride (NS MBP) 50 mL IVPB 2,000 mg, intravenous, Administer over 30 Minutes, EVERY 8 HOURS, 21 doses, First dose on 10/04/19 at 1000, Last dose on 10/11/19 at 0500, Controlled antibiotic: has ID approved? Yes, Routine Given 10/11/2019 5:19 EDT 2,000 mg Given 10/10/2019 21:43 EDT 2,000 mg Given 10/10/2019 13:41 EDT 2,000 mg cholecalciferol (Vitamin D3) tablet 2,000 Units 2,000 Units, oral, AT BEDTIME, First dose on Sun10/05/19 at 2100, Until Discontinued, Routine Given 10/14/2019 20:55 EDT 2,000 Units Given 10/13/2019 21:52 EDT 2,000 Units Given 10/12/2019 20:54 EDT 2,000 Units dextrose 50 % solution 12.5 g 12.5 g (25 mL), intravenous, PRN, Starting on Sun10/10/19 at 0634, Until Sun10/15/19 at 1714, Low Blood Sugar, Routine electrolyte-A (PLASMALYTE-A) solution at 75 mL/hr, intravenous, CONTINUOUS, Starting on 10/04/19 at 1000, Until Sun10/05/19 at 1526, Routine New Bag 10/04/2019 17:22 EDT 75 mL/hr ertapenem (INVANZ) 1,000 mg in sodium chloride (NS MBP) 50 mL IVPB 1,000 mg, intravenous, Administer over 30 Minutes, DAILY, 7 doses, First dose on Sun10/15/19 at 0930, Last dose on Sun10/21/19 at 0900, Controlled antibiotic: has ID approved? Yes, Routine Given 10/15/2019 10:45 EDT 1,000 mg fentaNYL citrate (PF) 50 mcg/mL injection 1 dose, Starting on Sun10/09/19 at 1723, Until Sun10/09/19 at 1727 fentaNYL citrate (PF) injection 25-50 mcg 25-50 mcg, intravenous, EVERY 5 MIN PRN, Starting on Sun10/09/19 at 1702, Until Sun10/09/19 at 1958, Pain, Routine, Recovery (only) Given 10/09/2019 17:27 EDT 50 mcg gadobutroL (GADAVIST PFS) solution solution 1-15 mmol 1-15 mmol (1-15 mL), intravenous, Once in imaging, 1 dose, Starting on 10/04/19 at 1115, Until 10/04/19 at 1115, Routine, Imaging Protocol Orders Given 10/04/2019 11:15 EDT 11 mmol glucagon injection 1 mg 1 mg, intramuscular, PRN, Starting on Sun10/10/19 at 0634, Until Sun10/15/19 at 1714, Low blood sugar, Routine HYDROmorphone (PF) (DILAUDID) 0.5 mg/0.5 mL syringe 0.25 mg 0.25 mg, intravenous, NOW X1, 1 dose, On Sun10/05/19 at 1730, Routine Given 10/05/2019 17:17 EDT 0.25 mg HYDROmorphone (PF) (DILAUDID) 0.5 mg/0.5 mL syringe 1 dose, Starting on Sun10/05/19 at 1715, Until Sun10/15/19 at 1714 insulin aspart U-100 (NOVOLOG FLEXPEN) injection 10 Units 10 Units, subcutaneous, 3 TIMES DAILY WITH MEALS, First dose (after last modification) on Sun10/15/19 at 0800, Until Discontinued, Routine Given 10/15/2019 13:25 EDT 10 Units Given 10/15/2019 9:35 EDT 10 Units insulin aspart U-100 (NOVOLOG FLEXPEN) injection 12 Units 12 Units, subcutaneous, 3 TIMES DAILY WITH MEALS, First dose (after last modification) on Sun10/07/19 at 1700, Until Discontinued, Routine Given 10/08/2019 8:21 EDT 12 Units Given 10/07/2019 18:26 EDT 12 Units insulin aspart U-100 (NOVOLOG FLEXPEN) injection 12 Units 12 Units, subcutaneous, 3 TIMES DAILY WITH MEALS, First dose (after last modification) on Sun10/12/19 at 1200, Until Discontinued, Routine Given 10/14/2019 17:41 EDT 12 Units Given 10/14/2019 13:07 EDT 12 Units Given 10/14/2019 8:09 EDT 12 Units insulin aspart U-100 (NOVOLOG FLEXPEN) injection 15 Units 15 Units, subcutaneous, 3 TIMES DAILY WITH MEALS, First dose (after last modification) on Sun10/08/19 at 1245, Until Discontinued, Routine Given 10/08/2019 18:06 EDT 15 Units Given 10/08/2019 13:05 EDT 15 Units insulin aspart U-100 (NOVOLOG FLEXPEN) injection 15 Units 15 Units, subcutaneous, 3 TIMES DAILY WITH MEALS, First dose on Sun10/10/19 at 1000, Until Discontinued, Routine Given 10/12/2019 7:46 EDT 15 Units Given 10/11/2019 18:19 EDT 15 Units Given 10/11/2019 13:41 EDT 15 Units insulin aspart U-100 (NOVOLOG FLEXPEN) injection 8 Units 8 Units, subcutaneous, 3 TIMES DAILY WITH MEALS, First dose on Sun10/06/19 at 1745, Until Discontinued, Routine Given 10/07/2019 13:23 EDT 8 Units Given 10/07/2019 10:01 EDT 8 Units Given 10/06/2019 19:50 EDT 8 Units insulin aspart U-100 (NOVOLOG FLEXPEN) injection subcutaneous, 3 TIMES DAILY WITH MEALS, First dose on Sun10/04/19 at 1300, Until Discontinued, Routine Given 10/04/2019 18:46 EDT 8 Units insulin aspart U-100 (NOVOLOG FLEXPEN) injection subcutaneous, EVERY 6 HOURS, First dose on 10/04/19 at 2000, Until Discontinued, Routine, Indications: SUPPLEMENTAL INSULINIndications:SUPPLEMENTAL INSULIN Given 10/05/2019 5:38 EDT 4 Units Given 10/05/2019 0:27 EDT 3 Units insulin aspart U-100 (NOVOLOG FLEXPEN) injection subcutaneous, 3 TIMES DAILY WITH MEALS, First dose on Sun10/05/19 at 1700, Until Discontinued, Routine Given 10/08/2019 18:07 EDT 6 Units Given 10/08/2019 13:07 EDT 6 Units Given 10/08/2019 8:22 EDT 4 Units insulin aspart U-100 (NOVOLOG FLEXPEN) injection subcutaneous, AT BEDTIME, First dose on Sun10/06/19 at 2100, Until Discontinued, Routine Given 10/08/2019 22:16 EDT 5 Units insulin aspart U-100 (NOVOLOG FLEXPEN) injection subcutaneous, EVERY 6 HOURS, First dose on Sun10/09/19 at 0845, Until Discontinued, Routine, Indications: SUPPLEMENTAL INSULINIndications:SUPPLEMENTAL INSULIN Given 10/09/2019 9:34 EDT 3 Units insulin aspart U-100 (NOVOLOG FLEXPEN) injection subcutaneous, 3 TIMES DAILY WITH MEALS, First dose on Sun10/10/19 at 0800, Until Discontinued, Routine Given 10/15/2019 13:27 EDT 3 Units Given 10/14/2019 17:45 EDT 3 Units Given 10/14/2019 8:11 EDT 3 Units insulin aspart U-100 (NOVOLOG FLEXPEN) injection subcutaneous, AT BEDTIME, First dose on Sun10/10/19 at 2100, Until Discontinued, Routine Given 10/10/2019 21:48 EDT 5 Units insulin glargine (LANTUS SOLOSTAR) injection pen 35 Units 35 Units, subcutaneous, AT BEDTIME, First dose (after last modification) on Sun10/04/19 at 2100, Until Discontinued, Routine Given 10/06/2019 21:51 EDT 35 Units Given 10/05/2019 21:59 EDT 35 Units Given 10/04/2019 20:17 EDT 35 Units insulin glargine (LANTUS SOLOSTAR) injection pen 38 Units 38 Units, subcutaneous, AT BEDTIME, First dose (after last modification) on Tu10/07/19 at 2100, Until Discontinued, Routine Given 10/07/2019 21:37 EDT 38 Units insulin glargine (LANTUS SOLOSTAR) injection pen 45 Units 45 Units, subcutaneous, AT BEDTIME, First dose (after last modification) on Sun10/08/19 at 2100, Until Discontinued, Routine Given 10/09/2019 22:31 EDT 45 Units Given 10/08/2019 22:15 EDT 45 Units insulin glargine (LANTUS SOLOSTAR) injection pen 45 Units 45 Units, subcutaneous, AT BEDTIME, First dose (after last modification) on Sun10/12/19 at 2100, Until Discontinued, Routine Given 10/14/2019 20:58 EDT 45 Units Given 10/13/2019 21:53 EDT 45 Units Given 10/12/2019 21:11 EDT 45 Units insulin glargine (LANTUS SOLOSTAR) injection pen 55 Units 55 Units, subcutaneous, AT BEDTIME, First dose (after last modification) on Sun10/10/19 at 2100, Until Discontinued, Routine Given 10/11/2019 21:34 EDT 55 Units Given 10/10/2019 21:52 EDT 55 Units lactated ringers (LR) infusion at 25 mL/hr, intravenous, CONTINUOUS, Starting on Caridad 10/09/19 at 1515, Until Sun10/15/19 at 1714, Routine New Bag 10/09/2019 14:54 EDT 25 mL/hr IV lactated ringers (LR) infusion at 75 mL/hr, intravenous, CONTINUOUS, Starting on Sun10/09/19 at 1730, Until Sun10/15/19 at 1714, Routine, Recovery (only) levothyroxine (SYNTHROID) tablet 112 mcg 112 mcg, oral, DAILY, First dose on Sun10/04/19 at 1300, Until Discontinued, Routine Given 10/15/2019 6:58 EDT 112 mcg Given 10/14/2019 6:31 EDT 112 mcg Given 10/13/2019 6:14 EDT 112 mcg lidocaine (PF) 10 mg/mL (1 %) injection 2 mg 2 mg, intradermal, PRN, 4 doses, Starting on Sun10/08/19 at 0728, Until Sun10/15/19 at 1714, peripheral intravenous catheter placement, Routine methocarbamoL (ROBAXIN) tablet 1,000 mg 1,000 mg, oral, EVERY 6 HOURS PRN, Starting on 10/04/19 at 1239, Until Sun10/05/19 at 1526, muscle spasms, Routine Given 10/04/2019 13:14 EDT 1,000 mg methocarbamoL (ROBAXIN) tablet 750 mg 750 mg, oral, 4 TIMES DAILY, First dose on 10/05/19 at 1700, Until Discontinued, Routine Given 10/15/2019 13:23 EDT 750 mg Given 10/15/2019 9:30 EDT 750 mg Given 10/14/2019 20:55 EDT 750 mg metroNIDAZOLE (FLAGYL) tablet 500 mg 500 mg, oral, EVERY 8 HOURS, 21 doses, First dose on 10/04/19 at 1000, Last dose on 10/11/19 at 0500, Routine Given 10/11/2019 5:19 EDT 500 mg Given 10/10/2019 20:07 EDT 500 mg Given 10/10/2019 13:35 EDT 500 mg Multivitamins with Minerals tablet 1 Tab 1 Tablet, oral, AT BEDTIME, First dose on 10/05/19 at 2100, Until Discontinued, Routine Given 10/14/2019 20:55 EDT 1 Tablet Given 10/13/2019 21:51 EDT 1 Tablet Given 10/12/2019 20:54 EDT 1 Tablet oxyCODONE (ROXICODONE) immediate release tablet 5-10 mg 5-10 mg, oral, EVERY 30 MINUTES PRN, 2 doses, Starting on 10/05/19 at 1356, Until 10/05/19 at 1524, Pain, Routine, Recovery (only) Given 10/05/2019 14:10 EDT 10 mg oxyCODONE (ROXICODONE) immediate release tablet 5-10 mg 5-10 mg, oral, EVERY 4 HOURS PRN, Starting on 10/05/19 at 1600, Until 10/15/19 at 1714, Pain, Routine Given 10/14/2019 17:26 EDT 10 mg Given 10/14/2019 9:06 EDT 10 mg Given 10/14/2019 0:46 EDT 10 mg oxyCODONE (ROXICODONE) immediate release tablet 5-15 mg 5-15 mg, oral, EVERY 3 HOURS PRN, Starting on 10/04/19 at 0932, Until 10/05/19 at 1526, Pain, Routine Given 10/05/2019 5:41 EDT 15 mg Given 10/04/2019 23:57 EDT 15 mg Given 10/04/2019 13:13 EDT 15 mg piperacillin-tazobactam 4.5 g in sodium chloride (NS MBP) 100 mL IVPB 4.5 g, intravenous, Administer over 4 Hours, Once (Without Time Specified), 1 dose, Starting on Sun10/03/19 at 2317, Until 10/04/19 at 0642, Controlled antibiotic: has ID approved? No: ED Patient. If admitted, further doses required ID approval, Type of Therapy: Empiric, Suspected Indication (Select all that apply): Moderate or severe diabetic foot infection (polymicrobial culture with 3rd gen cephalosporin resistant organism), ID Consult: No, STAT Given 10/04/2019 2:42 EDT 4.5 g sodium chloride 0.9 % (flush) flush 10 mL 10 mL, intercatheter, WEEKLY, First dose on Sun10/15/19 at 1300, Until Discontinued, Routine Given 10/15/2019 13:29 EDT 10 mL sodium chloride 0.9 % (flush) flush 10 mL 10 mL, intercatheter, PRN, Starting on Sun10/15/19 at 1234, Until Sun10/15/19 at 1714, Line Care, Routine sodium chloride 0.9 % (flush) flush 20 mL 20 mL, intercatheter, PRN, Starting on Sun10/15/19 at 1234, Until Sun10/15/19 at 1714, Line Care, Routine sodium chloride 0.9 % (NS) infusion at 100 mL/hr, intravenous, CONTINUOUS, Starting on Caridad 10/09/19 at 0000, Until Sun10/15/19 at 1714, Routine New Bag 10/09/2019 13:18 EDT 100 mL/hr Rate Documented 10/09/2019 9:40 EDT 100 mL/hr Restarted 10/09/2019 5:10 EDT 100 mL/hr traMADoL (ULTRAM) tablet 50 mg 50 mg, oral, EVERY 6 HOURS PRN, Starting on Sun10/05/19 at 1601, Until Sun10/15/19 at 1714, Pain, Routine Given 10/15/2019 13:24 EDT 50 mg Given 10/15/2019 5:57 EDT 50 mg Given 10/14/2019 7:51 EDT 50 mg vancomycin (VANCOCIN) 1,750 mg in dextrose 5% (D5W) 500 mL IVPB 1,750 mg (rounded from 1,651.5 mg = 15 mg/kg ? 110.1 kg), intravenous, Administer over 105 Minutes, EVERY 12 HOURS, 14 doses, First dose on Sun10/04/19 at 1400, Last dose on Sun10/10/19 at 1600, Type of Therapy: Empiric, Suspected Indication (Select all that apply): Purulent cellulitis/skin abscess, ID Consult: Yes, ID Consult Type: Curbside, ID Provider Consulted: ID Fellow, Routine Given 10/10/2019 16:36 EDT 1,750 mg Given 10/10/2019 4:26 EDT 1,750 mg Given 10/09/2019 3:33 EDT 1,750 mg vancomycin (VANCOCIN) 2,250 mg in dextrose 5% (D5W) 500 mL IVPB 2,250 mg (rounded from 2,202 mg = 20 mg/kg ? 110.1 kg), intravenous, Administer over 135 Minutes, NOW X1, 1 dose, On Sun10/03/19 at 2330, Type of Therapy: Empiric, Suspected Indication (Select all that apply): Osteomyelitis, Moderate or severe diabetic foot infection, ID Consult: No, STAT Given 10/04/2019 2:42 EDT 2,250 mg zinc sulfate (ZINCATE) capsule 220 mg 220 mg, oral, AT BEDTIME, First dose on Sun10/05/19 at 2100, Until Discontinued, Routine Given 10/14/2019 20:55 EDT 22 0 mg Given 10/13/2019 21:51 EDT 220 mg Given 10/12/2019 20:54 EDT 220 mg documented in this encounter Discontinued Medications Medication Sig Discontinue Reason Start Date End Da te amoxicillin-clavulanate (AUGMENTIN) 875-125 mg per tablet Take 1 Tab by mouth every 12 hours for 5 days. 10/14/2019 10/15/2019 insulin aspart U-100 (NOVOLOG FLEXPEN) 100 unit/mL (3 mL) injectable pen Inject 6 Units into the skin 3 times daily with meals. 10/15/2019 10/15/2019 insulin glargine (LANTUS SOLOSTAR) 100 unit/mL (3 mL) injection pen Inject 45 Units into the skin at bedtime. 10/15/2019 10/15/2019 insulin glargine,hum.rec.anlog (INSULIN GLARGINE, BASAGLAR KWIKPEN,) 100 unit/mL (3 mL) injection penIndications:Type 2 diabetes mellitus with hyperglycemia, without long-term current use of insulin ([facility]) Inject 70 Units into the skin at bedtime. 11/14/2017 10/15/2019 exenatide microspheres (BYDUREON) 2 mg/0.65 mL pen injector Inject 2 mg into the skin once a week. 12/12/2017 10/15/2019 insulin lispro (HUMALOG KWIKPEN) 100 unit/mL injectable pen Inject 40 Units into the skin daily with dinner. 03/14/2018 10/15/2019 glimepiride (AMARYL) 4 mg tablet TAKE ONE TABLET BY MOUTH TWICE DAILY 09/01/2019 10/15/2019 documented as of this encounter Historical Medications * This list may reflect changes made after this encounter. insulin glargine (LANTUS SOLOSTAR) 100 unit/mL (3 mL) injection pen Inject 45 Units into the skin at bedtime. 2 Box 2 10/15/2019 04/22/2020 added in this encounter Active and Recently Administered Medications Times are shown in EDT. Scheduled Medication Order 10/13/2019 10/14/2019 10/15/2019 ampicillin-sulbactam (UNASYN) 3,000 mg in sodium chloride (NS MBP) 100 mL infusion (CANCELED) 3,000 mg (3 g), intravenous, Administer over 30 Minutes, EVERY 6 HOURS, 28 doses, First dose on Sun10/13/19 at 1100, Last dose on Sun10/20/19 at 0500, Routine 1203 (Given - Provider: Rina Rosado RN)1806 (Given - Provider: Daljit Ventura RN) 0029 (Given - Provider: Nino Forbes, JARVIS)0532 (Given - Provider: Nino Forbes, JARVIS)1126 (Given - Provider: Rina Rosado RN)1726 (Given - Provider: Rina Rosado, JARVIS)2325 (Given - Provider: Nino Forbes, JARVIS) 0557 (Given - Provider: Nino Forbes, RN) cholecalciferol (Vitamin D3) tablet 2,000 Units 2,000 Units, oral, AT BEDTIME, First dose on Sun10/05/19 at 2100, Until Discontinued, Routine 2151 (Given - Provider: Daljit Ventura RN) 2054 (Given - Provider: Nino Forbes RN) ertapenem (INVANZ) 1,000 mg in sodium chloride (NS MBP) 50 mL IVPB 1,000 mg, intravenous, Administer over 30 Minutes, DAILY, 7 doses, First dose on Sun10/15/19 at 0930, Last dose on Sun10/21/19 at 0900, Controlled antibiotic: has ID approved? Yes, Routine 1045 (Given - Provid er: Rina Rosado RN) insulin aspart U-100 (NOVOLOG FLEXPEN) injection 10 Units 10 Units, subcutaneous, 3 TIMES DAILY WITH MEALS, First dose (after last modification) on Sun10/15/19 at 0800, Until Discontinued, Routine 0935 (Given - Provid er: Rina Rosado RN)1325 (Given - Provider: Rina Rosado RN)1700 (Canceled Entry - Provider: Batch Job User Admin - Comment: Automatically canceled at discontinue of medication order) insulin aspart U-100 (NOVOLOG FLEXPEN) injection 12 Units (CANCELED) 12 Units, subcutaneous, 3 TIMES DAILY WITH MEALS, First dose (after last modification) on Sun10/12/19 at 1200, Until Discontinued, Routine 0714 (Given - Provider: Bravo Figueroa RN - Comment: [id number])1219 (Given - Provider: Rina Rosado RN)1927 (Given - Provider: Daljit Ventura RN) 0809 (Given - Provider: Rina Rosado RN)1307 (Given - Provider: Rina Rosado RN)1741 (Given - Provider: Rina Rosado RN) insulin aspart U-100 (NOVOLOG FLEXPEN) injection subcutaneous, 3 TIMES DAILY WITH MEALS, First dose on Sun10/10/19 at 0800, Until Discontinued, Routine 0715 (Given - Provider: Bravo Figueroa RN)1222 (Given - Provider: Rina Rosado RN)1928 (Given - Provider: Daljit Ventura RN) 0811 (Given - Provider: Rina Rosado RN)1309 (Not Given - Provider: Rina Rosado RN - Reason: Order parameters not met)1745 (Given - Provider: Rina Rosado RN) 0934 (Not Given - Provider: Rina Rosado RN - Reason: Order parameters not met)1327 (Given - Provider: Rina Rosado RN)1700 (Canceled Entry - Provider: Batch Job User Admin - Comment: Automatically canceled at discontinue of medication order) insulin glargine (LANTUS SOLOSTAR) injection pen 45 Units 45 Units, subcutaneous, AT BEDTIME, First dose (after last modification) on 10/12/19 at 2100, Until Discontinued, Routine 2153 (Given - Provider: Daljit Ventura RN) 2057 (Given - Provider: Nino Forbes RN) levothyroxine (SYNTHROID) tablet 112 mcg 112 mcg, oral, DAILY, First dose on 10/04/19 at 1300, Until Discontinued, Routine 0614 (Given - Provider: Bravo Figueroa RN) 0631 (Given - Provider: Nino Forbes RN) 0658 (Given - Provider: Nino Forbes RN) methocarbamoL (ROBAXIN) tablet 750 mg 750 mg, oral, 4 TIMES DAILY, First dose on 10/05/19 at 1700, Until Discontinued, Routine 0721 (Given - Provider: Bravo Figuerao RN)1203 (Given - Provider: Rina Rosado RN)1752 (Given - Provider: An Sawyer RN)2151 (Given - Provider: Daljit Ventura RN) 0751 (Given - Provider: Rina Rosado RN)1131 (Given - Provider: Rina Rosado RN)1726 (Given - Provider: Rina Rosado RN)2055 (Given - Provider: Nino Forbes RN) 0930 (Given - Provider: Rina Rosado RN)1323 (Given - Provider: Rina Rosado RN)1700 (Canceled Entry - Provider: Batch Job User Admin - Comment: Automatically canceled at discontinue of medication order) Multivitamins with Minerals tablet 1 Tab 1 Tablet, oral, AT BEDTIME, First dose on 10/05/19 at 2100, Until Discontinued, Routine 215 (Given - Provider: Daljit Ventura RN) 2054 (Given - Provider: Nino Forbes, JARVIS) sodium chloride 0.9 % (flush) flush 10 mL 10 mL, intercatheter, WEEKLY, First dose on Sun10/15/19 at 1300, Until Discontinued, Routine 1329 (Given - Provid er: Rina Rosado RN) zinc sulfate (ZINCATE) capsule 220 mg 220 mg, oral, AT BEDTIME, First dose on Sun10/05/19 at 2100, Until Discontinued, Routine 215 (Given - Provider: Daljit Ventura RN) 2054 (Given - Provider: Nino Forbes RN) Continuous Medication Order 10/13/2019 10/14/2019 10/15/2019 lactated ringers (LR) infusion at 25 mL/hr, intravenous, CONTINUOUS, Starting on [place] 10/09/19 at 1515, Until Sun10/15/19 at 1714, Routine lactated ringers (LR) infusion at 75 mL/hr, intravenous, CONTINUOUS, Starting on [place] 10/09/19 at 1730, Until Sun10/15/19 at 1714, Routine, Recovery (only) sodium chloride 0.9 % (NS) infusion at 100 mL/hr, intravenous, CONTINUOUS, Starting on [place] 10/09/19 at 0000, Until Sun10/15/19 at 1714, Routine PRN Medication Order 10/13/2019 10/14/2019 10/15/2019 acetaminophen (TYLENOL) tablet 1,000 mg 1,000 mg, oral, EVERY 6 HOURS PRN, Starting on Sun10/05/19 at 1600, Until Sun10/15/19 at 1714, Pain, Fever, Routine 1619 (Given - Provider: Daljit Ventura RN) 0029 (Given - Provider: Nino Forbes, JARVIS)1126 (Given - Provider: Rina Rosado, RN)2054 (Given - Provider: Nino Forbes, RN) 0557 (Given - Provider: Nino Forbes, RN)1324 (Given - Provider: Rina Rosado, JARVIS) alteplase (CATHFLO ACTIVASE) injection 2 mg 2 mg, intercatheter, PRN, Starting on Sun10/15/19 at 0903, Until Sun10/15/19 at 1714, Line Care, Routine dextrose 50 % solution 12.5 g 12.5 g (25 mL), intravenous, PRN, Starting on Sun10/10/19 at 0634, Until Sun10/15/19 at 1714, Low Blood Sugar, Routine glucagon injection 1 mg 1 mg, intramuscular, PRN, Starting on Sun10/10/19 at 0634, Until Sun10/15/19 at 1714, Low blood sugar, Routine lidocaine (PF) 10 mg/mL (1 %) injection 2 mg 2 mg, intradermal, PRN, 4 doses, Starting on Sun10/08/19 at 0728, Until Sun10/15/19 at 1714, peripheral intravenous catheter placement, Routine oxyCODONE (ROXICODONE) immediate release tablet 5-10 mg 5-10 mg, oral, EVERY 4 HOURS PRN, Starting on Sun10/05/19 at 1600, Until Sun10/15/19 at 1714, Pain, Routine 0618 (Given - Provider: Bravo Figueroa RN)1752 (Given - Provider: An Sawyer RN) 0046 (Given - Provider: Nino Forbes RN)0906 (Given - Provider: Rina Rosado RN)1726 (Given - Provider: Rina Rosado RN) sodium chloride 0.9 % (flush) flush 10 mL 10 mL, intercatheter, PRN, Starting on Sun10/15/19 at 1234, Until Sun10/15/19 at 1714, Line Care, Routine sodium chloride 0.9 % (flush) flush 20 mL 20 mL, intercatheter, PRN, Starting on Sun10/15/19 at 1234, Until Sun10/15/19 at 1714, Line Care, Routine traMADoL (ULTRAM) tablet 50 mg 50 mg, oral, EVERY 6 HOURS PRN, Starting on Sun10/05/19 at 1601, Until Sun10/15/19 at 1714, Pain, Routine 0618 (Given - Provider: Bravo Figueroa RN)1203 (Given - Provider: Rina Rosado RN)2152 (Given - Provider: Daljit Ventura RN) 0751 (Given - Provider: Rina Rosado RN) 0557 (Given - Provider: Nino Forbes RN)1324 (Given - Provider: Rina Rosado RN) No Frequency Medication Order 10/13/2019 10/14/2019 10/15/2019 HYDROmorphone (PF) (DILAUDID) 0.5 mg/0.5 mL syringe 1 dose, Starting on Sun10/05/19 at 1715, Until Sun10/15/19 at 1714 documented in this encounter Orders Medications Ordered That Matthew ht Not Have Been Administered Count Last Ordered Date First Ordered Date alteplase (CATHFLO ACTIVASE) injection 2 mg 1 10/15/2019 sodium chloride 0.9 % (flush) flush 10 mL 1 10/15/2019 sodium chloride 0.9 % (flush) flush 20 mL 1 10/15/2019 dextrose 50 % solution 12.5 g 3 10/10/2019 10/04/2019 glucagon injection 1 mg 3 10/10/2019 08/03/2019 atropine 0.1 mg/mL syringe 0.5 mg 2 020 10/05/2019 HYDROmorphone (PF) (DILAUDID ) 0.5 mg/0.5 mL syringe 0.25-0.5 mg 1 10/09/2019 lactated ringers (LR) infusion 2 10/09/2019 10/05/2019 lidocaine 1 % 30 mL, bupivac patrick (PF) (MARCAINE) 30 mL 1 10/09/2019 naloxone (NARCAN) injection 0.2 mg 2 201910/05/2019 ondansetron (PF) (ZOFRAN) injection 4 mg 4 10/09/2019 10/04/2019 ceFAZolin (ANCEF) syringe 2 g 3 10/08/2019 10/04/2019 lidocaine (PF) 10 mg/mL (1 % ) injection 2 mg 1 10/08/2019 acetaminophen (TYLENOL) solu tion unit dose cup 995 mg 1 10/05/2019 acetaminophen (TYLENOL) tablet 1,000 mg 1 0 10/05/2019 ascorbic acid (vitamin C) (V ITAMIN C) tablet 500 mg 2 10/05/2019 10/04/2019 bisacodyL (DULCOLAX) suppository 10 mg 2 10/04/2019 calcium carbonate (TUMS) 200 mg calcium (500 mg) per chewable tablet tablet,chewable 2 Tab 2 10/05/2019 10/04/2019 diphenhydrAMINE (BENADRYL) i njection 12.5 mg 1 10/05/2019 docusate sodium (COLACE) capsule 200 mg 2 0 10/05/2019 10/04/2019 fentaNYL citrate (PF) injection 25-50 mcg 1 10/05/2019 HYDROmorphone (PF) (DILAUDID ) 0.5 mg/0.5 mL syringe 1 10/05/2019 methocarbamoL (ROBAXIN) tablet 1,000 mg 1 0 10/05/2019 ondansetron (ZOFRAN-ODT) dis integrating tablet 4 mg 2 10/05/2019 10/04/2019 oxyCODONE (ROXICODONE) immed iate release tablet 5-15 mg 1 10/05/2019 polyethylene glycol 3350 (MA RALAX) packet 17 g 2 10/05/2019 10/04/2019 senna (SENOKOT) tablet 2 Tab 2 10/05/2019 10/04/2019 sodium chloride 0.9 % irrigation 1 10/05/19 20 acetaminophen (TYLENOL) suppository 975 mg 1 10/04/2019 cholecalciferol (Vitamin D3) tablet 2,000 Units 1 10/04/2019 insulin aspart U-100 (NOVOLO G FLEXPEN) injection 1 10/04/2019 insulin glargine (LANTUS EMELY OSTAR) injection pen 70 Units 1 10/04/2019 Multivitamins with Minerals tablet 1 Tab 1 10/04/2019 potassium chloride in water infusion 20 mEq 1 10/04/2019 povidone-iodine solution 5% (Skin and Nasal Antiseptic) 1 Kit 1 10/04/2019 zinc sulfate (ZINCATE) capsule 220 mg 1 03/2019 General Supply Count Last Ordered Date First Or dered Date INSULIN NEEDLES 1 10/15/2019 Diet Count Last Ordered Date First Orde red Date DISCHARGE DIET 1 10/14/2019 Nursing Count Last Ordered Date First Orde red Date ACCESS CENTRAL LINE CATHETER 2 10/15/2019 CHECK CENTRAL LINE 1 10/15/2019 INFECTIOUS DISEASE CLINIC CO MMUNICATION ORDER 1 10/15/2019 LAB INSTRUCTIONS 1 10/15/2019 NURSING IV THERAPY - MISCELLANEOUS 1 2019 ACTIVITY INSTRUCTIONS 1 10/14/2019 BATHING INSTRUCTIONS 1 10/14/2019 WOUND CARE INSTRUCTIONS 1 10/14/2019 SCANLON/UROLOGY CARE 1 10/05/2019 PATIENT AT LOW RISK FOR VTE: RISK OF PHARMACOLOGIC PROPHYLAXIS OUTWEIG 1 10/05/2019 STRAIGHT CATH 1 10/05/2019 CONTRAINDICATION TO ANTICOAG ULATION THERAPY 1 10/04/2019 Consult Count Last Ordered Date First Orde red Date CONSULT CASE MANAGEMENT 2 10/13/2019 CONSULT NUTRITION 1 10/04/2019 IV Count Last Ordered Date First Orde red Date BLOOD DRAW/ADMIN OF CONTRAST PER CVAD PROTOCOL 1 10/15/2019 INSERT PICC LINE 1 10/15/2019 IV REQUEST 2 10/10/2019 10/05/2019 Admission Count Last Ordered Date First Orde red Date ADMIT TO INPATIENT 1 10/04/2019 Transfer Count Last Ordered Date First Orde red Date TEACHING SERVICE 2 10/05/2019 10/04/2019 ED BED REQUEST 2 10/04/2019 Discharge Count Last Ordered Date First Orde red Date DISCHARGE PATIENT 1 10/15/2019 Case Request Count Last Ordered Date First Orde red Date CASE REQUEST OPERATING ROOM 2 10/07/2019 10/04/2019 Consult to Social Work Count Last Ordered Date First Ordered Date CONSULT SOCIAL WORK 1 10/04/2019 documented in this encounter Care Teams System Dispatcher Relationship Specialty Start Date End Date Karishma Batres MD [address] [place] [address] PCP - General 07/27/11 12/31/23 documented as of this encounter
--- OUTSIDE RECORDS SUMMARY | 2024-02-28 16:51 | XMS_ITS | Encounter Summary ---
Author Organization [facility] Address [address] [place] [address] Care Team Providers Care Activity Director Name Role Phone Jason Batres MD Primary Care Provi margarita Reason for Visit * Auth/Cert Specialty Diagnoses / Procedures Referred By [facility] Referred To Contact Diagnoses Osteomyelitis ([facility]) Diabetic foot infection ([facility]) Osteomyelitis, unspecified site, unspecified type ([facility]) Referral ID Status Reason Start Date Expiration Date Visits Re quested Visits Authorized [id number] 1 1 Encounter Details Date Type Department Care Team (Late st Contact Info) Description 10/09/2019 15:18 EDT Anesthesia Event [facility] [place] [address] [place] [address] Tommy Esqueda MD [address] [facility], [address] [place] [id number] Penelope Villarreal, CHANELLE [address] [place] [phone] Anesthesia Record Procedure Summary Procedure Name Responsible Anesthesiologist Anesthesia Start Time Anesthesia Stop Time Right foot transmetatarsal amputation (Right: Foot) Tommy Esqueda MD 10/09/19 1518 10/09/19 171 5 Events Date Time Event Comment 10/09/2019 1518 An Start The patient was re-evaluated immediately before moderate or deep sedation use, before anesthesia induction, or before the anesthesia procedure. 1518 An Start Data 1701 An Induction The patient was reevaluated immediately before moderate or deep sedation use and before anesthesia induction. 1701 An Intubation 1701 Anesthesia Ready 1701 An Extubation 1701 an stop data 1715 An Stop 10/10/2019 1045 Handoff to RN I completed my handoff to the receiving nurse during which we: 1. Identified the patient 2. Identified the responsible provider 3. Reviewed the pertinent medical history 4. Discussed the surgical course 5. Reviewed intra-op anesthesia management and issues during anesthesia 6. Set expectations for post-procedure period 7. Allowed opportunity for questions and acknowledgement of understanding. Meds Name Total ketAMINE 5 mL prefilled syringe 50 mg midazolam 1 mg/mL 2 mL vial 2 mg propOFol (DIPRIVAN) injection 120 mg propofol (DIPRIVAN) 500 mg in 50 mL infu girish 389,754 mcg ceFAZolin (ANCEF) syringe 2 g 2 g * Agents Name O2 N2O Air Aux O2 flow * Blood No blood administrations on file. Lines, Drains, and Airways Type Details Placement Removal Peripheral IV 10/05/19; 0631; 11/22; B Mock Introcan; Left, Lateral, Dorsal; Forearm; Inserted by RN; 1; None; 3.15% Chlorhexidine with IPA; 10/10/19; 1648 10/05/19 0631 by Promise Dye RN 10/10/19 1648 by Dylan Sevilla RN Wound 10/05/19; 1302; Diab etic ulc; Anterior, Right; Foot; left foot ulcer present on arrival, I&D and amputation of second ray; Full thickness; 10/09/19; 1623; Amputation 10/05/19 1302 by Adina Burton RN 10/09/19 1623 by Damian Plasencia, bar and filler assembler 10/09/19; 1624; Inci girish; Right; Foot; amputaion right 2nd metatarsal, 3rd metatarsal and forefoot; Full thickness; 12/24/20 (Healed prior to this admission); 0112; Amputation 10/09/19 1624 by Damian Plasencia, JARVIS 12/24/20 0112 by Xander Murillo RN documented in this encounter Social History [...] Anna Stephens RN documented in this encounter OR Notes * Anesthesia Postprocedure Evaluation - Tommy Esqueda MD - 10/10/2019 1045 EDT Patient: Jeff Scott Vital signs were reviewed with the recovery nurse. [facility] Vitals Value Taken Time BP 135/68 10/09/19 1930 Temp 36.7 ??C (98.1 ??F) 10/09/19 1830 Resp 14 10/09/191942 Pulse From Oximetry 78 BPM 10/09/191943 SpO2 96 % 10/09/191943 Vitals shown include unvalidated device data. Last Pain Score - Numeric Pain Level (Scale 1-10): 7 Type of Anesthesia - MAC Anesthesia Post Evaluation Post-procedure vitals reviewed and are stable. Level of consciousness: alert and oriented Temperature status: normothermia Respiratory status: airway patent Cardiovascular status: acceptable Hydration status: adequate Nausea/Vomiting: none Pain management: adequate Post-Op Assessment: patient tolerated procedure well with no complications Patient participation: able to participate Disposition: inpatient Anesthesia Complications: No apparent anesthesia complications * Anesthesia Preprocedure Evaluation - Tommy Esqueda MD - 10/09/2019 4259 EDT Anesthesia Preprocedure Evaluation Patient Medical History, including Anesthesia History reviewed. Chart and Nursing Notes reviewed, including NPO status and Medication History. Additional ROS/History Findings: No Known Allergies Review of Systems Past Medical History: Diagnosis Date ??? Arthritis ??? Back pain ??? Diabetes mellitus (HCC-CMS) ??? Hypothyroidism ??? Wears glasses Relevant Problems ENDO/GI (+) Hypothyroidism (+) Type 2 diabetes mellitus with diabetic polyneuropathy, with long-term current use of insulin (HCC-CMS) Other (+) Acute osteomyelitis of phalanx of foot (HCC-CMS) (+) Acute osteomyelitis of right ankle or foot (HCC-CMS) Physical Exam Airway Mallampati: I TM distance: >3 FB Neck ROM: full Cardiovascular - normal exam Dental - normal exam Pulmonary - normal exam Abdominal Anesthesia Plan ASA 3 Anesthesia Type - MAC Anesthesia plan and risks discussed. Informed consent obtained from patient. PAT Note (Notes from 09/09/19 through 10/09/19) No notes of this type exist for this encounter. documented in this encounter Plan of Treatment Not on file documented as of this encounter Visit Diagnoses Not on filedocumented in this encounter Administered Medications Inactive Administered Medications - up to 3 most recent administrations Medication Order MAR Action Action Date Dose Rate Site ceFAZolin (ANCEF) syringe 2 g 2 g, intravenous, Administer over 10 Minutes, ELECTRONIC IMAGER TO O.R., 1 dose, First dose on Car[place] 10/09/19 at 0700, Routine Given 10/09/2019 15:31 EDT 2 g ketAMINE in NaCl, iso-osmotic (KETALAR) 50 mg/5 mL (10 mg/mL) IV injection PRN, Starting on [place] 10/09/19 at 1521, Until Sun10/10/19 at 1044, Routine, Anesthesia Intraprocedure Given 10/09/2019 16:32 EDT 10 mg Given 10/09/2019 16:14 EDT 10 mg Given 10/09/2019 15:50 EDT 15 mg midazolam (PF) (VERSED) injection PRN, Starting on [place] 10/09/19 at 1520, Until Sun10/10/19 at 1044, Routine, Anesthesia Intraprocedure Given 10/09/2019 15:20 EDT 2 mg propofol (DIPRIVAN) 500 mg in 50 mL infusion FA IP EQF CONTINUOUS PRN FOR ONE STEP MEDS, Starting on [place] 10/09/19 at 1520, Until Sun10/10/19 at 1044, Routine, Anesthesia Intraprocedure Rate Change 10/09/2019 16:33 EDT 50 mcg/kg/min 33 mL/hr New Bag 10/09/2019 15:20 EDT 30 mcg/kg/min 19.8 mL/hr propOFol (DIPRIVAN) injection PRN, Starting on [place] 10/09/19 at 1521, Until Sun10/10/19 at 1044, Routine, Anesthesia Intraprocedure Given 10/09/2019 16:31 EDT 30 mg Given 10/09/2019 16:14 EDT 20 mg Given 10/09/2019 16:02 EDT 20 mg documented in this encounter Orders Medications Ordered That Matthew ht Not Have Been Administered Count Last Ordered Date First Ordered Date rocuronium (ZEMURON) injection 1 10/09/2019 documented in this encounter Care Teams Activity Director Relationship Specialty Start Date End Date Jason Batres MD [address] [place] [address] PCP - General 07/27/11 12/31/23 documented as of this encounter
--- OUTSIDE RECORDS SUMMARY | 2024-02-28 16:51 | XMS_ITS | Encounter Summary ---
Author Organization [facility] Address [address] [place] [address] Care Team Providers Care Report Analyst Name Role Phone Jason Batres MD Primary Care Provi margarita Reason for Visit * Auth/Cert Specialty Diagnoses / Procedures Referred By [facility] Referred To Contact Diagnoses Osteomyelitis ([facility]) Diabetic foot infection ([facility]) Osteomyelitis, unspecified site, unspecified type ([facility]) Referral ID Status Reason Start Date Expiration Date Visits Re quested Visits Authorized [id number] 1 1 Encounter Details Date Type Department Care Team (Late st Contact Info) Description 10/05/2019 11:54 EDT Anesthesia Event [facility] [place] [address] [place] [address] Preeti Mae MD [address] [facility], [address] [place] [phone] Jason Candelario MD [address] [place] [phone] Anesthesia Record Procedure Summary Procedure Name Responsible Anesthesiologist Anesthesia Start Time Anesthesia Stop Time Right second ray excision (Right: Second Toe) Preeti Mae MD 10/05/19 1154 10/05/19 1413 Events Date Time Event Comment 10/05/2019 1154 An Start The patient was re-evaluated immediately before moderate or deep sedation use, before anesthesia induction, or before the anesthesia procedure. 1154 An Start Data 1216 An Induction The patient was reevaluated immediately before moderate or deep sedation use and before anesthesia induction. 1220 An Intubation 1220 Anesthesia Ready 1245 An Tourn Inflated Tourniquet Inflated - Location = RLE, Pressure = 275 mmHg 1321 An Tourn Deflated Tourniquet Deflated - Duration = 36 minutes 1352 An Extubation . Purposeful m ovement. Patient following commands. Spontaneous ventilation resumed. Airway device LMA removed per criteria. Transported in supine position with HOB elevated to PACU on nasal canula. 1355 an stop data 1413 Handoff to RN I completed my handoff to the receiving nurse during which we: 1. Identified the patient 2. Identified the responsible provider 3. Reviewed the pertinent medical history 4. Discussed the surgical course 5. Reviewed intra-op anesthesia management and issues during anesthesia 6. Set expectations for post-procedure period 7. Allowed opportunity for questions and acknowledgement of understanding. 1413 An Stop Meds Name Total fentanyl citrate (PF) injection 100 mcg lidocaine 2% (PF) injection glass vial 7 0 mg ketAMINE 5 mL prefilled syringe 20 mg midazolam 1 mg/mL 2 mL vial 2 mg ondansetron (PF) (ZOFRAN) injection 4 mg propOFol (DIPRIVAN) injection 200 mg lactated ringers (LR) infusion Cannot be calculated ceFAZolin (ANCEF) syringe 2 g 2,000 mg morphine 10 mg/mL vial 5 mg * Agents Name Insp Sevoflurane Exp Sevoflurane O2 N2O Air Aux O2 flow * Blood No blood administrations on file. Lines, Drains, and Airways Type Details Placement Removal Full Thickness 03/23/16; 1653; Surg ical; Right; Toe (Comment which one); One incision to right 2nd toe; 10/09/19; 1200 03/23/16 1653 by Ria Sifuentes, JARVIS 10/09/19 1200 by Natasha Barry, JARVIS Peripheral IV 10/03/19; 2246; B Kayy wooten Introcan; Left; Antecubital; Inserted by RN; 1; 3.15% Chlorhexidine with IPA; 10/05/19; 1705 10/03/19 2246 by Norman Goff RN 10/05/19 1705 by Dylan Sevilla, JARVIS Peripheral IV 10/03/19; 2247; B Kayy wooten Introcan; Right; Antecubital; Inserted by RN; 1; None; 3.15% Chlorhexidine with IPA; 10/07/19 (PIV was not present at beginning of shift); 202910/03/19 2247 by Norman Goff RN 10/07/19 2030 by Perla Mims RN Peripheral IV 10/05/19; 0631; 08/11/22; B Mock Introcan; Left, Lateral, Dorsal; Forearm; Inserted by RN; 1; None; 3.15% Chlorhexidine with IPA; 10/10/19; 1648 10/05/19 0631 by Promise Dye RN 10/10/19 1648 by Dylan Sevilla RN Non-Surgical Airway 10/05/19; 1232 (heike barrett via procedure documentation); 10/05/19; 1352 10/05/19 1232 by Fauzia Harrell, [facility] 10/05/19 1352 by Fauzia Harrell, [facility] Wound Vac 10/05/19; 1300; In O R by ; Right; other (right foot); 10/09/19; 0722 ( No [place] present) 10/05/19 1300 by Dylan Sevilla RN 10/09/19 0722 by Naty Mike RN Wound 10/05/19; 1302; Diab etic ulc; Anterior, Right; Foot; left foot ulcer present on arrival, I&D and amputation of second ray; Full thickness; 10/09/19; 1623; Amputation 10/05/19 1302 by Adina Burton RN 10/09/19 1623 by Damian Plasencia RN documented in this encounter Social History [...] Anna Sevilla RN documented in this encounter OR Notes * Anesthesia Postprocedure Evaluation - Fauzia Harrell APRN - 10/05/2019 1415 EDT Patient: Jeff Scott Vital signs were reviewed with the recovery nurse. [facility] Vitals Value Taken Time BP 10/05/19 1415 Temp 37 10/05/19 1415 Resp 10 10/05/19 1404 Pulse From Oximetry 82 BPM 10/05/19 1415 SpO2 100 % 10/05/19 1415 Vitals shown include unvalidated device data. Last Pain Score - Numeric Pain Level (Scale 1-10): 8 Type of Anesthesia - general Anesthesia Post Evaluation Post-procedure vitals reviewed and are stable. Level of consciousness: awake Temperature status: normothermia Respiratory status: airway patent, nasal cannula and O2 Sat-appropriate for condition Cardiovascular status: acceptable and appropriate for condition Hydration status: adequate Nausea/Vomiting: none Pain management: adequate (medicated for pain on arrival to PACU) Post-Op Assessment: patient tolerated procedure well with no complications Patient participation: unable to participate due to sedation Disposition: inpatient Anesthesia Complications: No apparent anesthesia complications * Anesthesia Procedure Notes - Fauzia Harrell APRN - 10/05/2019 1230 EDT Associated Order(s): Airway Airway Date/Time: 10/05/2019 12:20 Urgency: elective Airway not difficult General Information and Staff Patient location during procedure: OR Performed: resident/[facility]/AA Indications and Patient Condition Indications for airway management: anesthesia Sedation level: GA Preoxygenated: yes Ventilation assessment: 0 - not attempted Final Airway Details Final airway type: supraglottic airway Successful airway: LMA and classic Size 4 Number of attempts at approach: 1 Additional Comments Atraumatic Placement #[id number], Dentition intact as Preop * Anesthesia Preprocedure Evaluation - Fauzia Harrell APRN - 10/05/2019 1138 EDT Anesthesia Preprocedure Evaluation Patient Medical History, including Anesthesia History reviewed. Chart and Nursing Notes reviewed, including NPO status and Medication History. Additional ROS/History Findings: No Known Allergies Review of Systems Constitutional: Negative for fever. Respiratory: Negative for cough and shortness of breath. Cardiovascular: Negative for chest pain and orthopnea. Gastrointestinal: Negative for heartburn, nausea and vomiting. Past Medical History: Diagnosis Date ??? Arthritis ??? Back pain ??? Diabetes mellitus ([facility]) ??? Hypothyroidism ??? Wears glasses Relevant Problems ENDO/GI (+) Hypothyroidism (+) Type 2 diabetes mellitus with diabetic polyneuropathy, with long-term current use of insulin (HCC-CMS) Other (+) Acute osteomyelitis of phalanx of foot (HCC-CMS) (+) Osteomyelitis (HCC-CMS) (+) Osteomyelitis, unspecified site, unspecified type (HCC-CMS) Physical Exam Airway Mallampati: I TM distance: >3 FB Neck ROM: full Cardiovascular Rhythm: regular Rate: normal Dental - normal exam Pulmonary Breath sounds clear to auscultation Abdominal Anesthesia Plan ASA 2 - emergent Anesthesia Type - general, to include intravenous induction. Block for post-op pain? No Anesthesia plan and risks discussed. Informed consent obtained from patient. Specific risks discussed were nausea, vomiting, nerve damage, headache, myocardial infarction, post-op intubation and dental injury. Code status discussed? No The preoperative history and physical which was performed within 30 days of this procedure, has been reviewed and the clinically appropriate elements of the physical examination have been repeated. There are no changes to the documented history and physical or, if so, such changes are documented inthis note PAT Note (Notes from 09/05/19 through 10/05/19) No notes of this type exist for this encounter. * Anesthesia Preprocedure Evaluation - Preeti Mae MD - 10/05/2019 1052 EDT Anesthesia Preprocedure Evaluation Patient Medical History, [...] osteomyelitis of phalanx of foot (HCC-CMS) (+) Osteomyelitis (HCC-CMS) (+) Osteomyelitis, unspecified site, unspecified type (HCC-CMS) Physical Exam Anesthesia Plan PAT Note (Notes from 09/05/19 through 10/05/19) No notes of this type exist for this encounter. documented in this encounter Plan of Treatment Not on file documented as of this encounter Procedures Procedure Name Priority Date/Time Associated Diagnosis Comments ANESTHESIA INTUBATION Routine 10/05/2019 12:30 EDT documented in this encounter Results * UT AN ELECTIVE SUPRAGLOTTIC AIRWAY (10/05/2019 12:30 EDT) Narrative Fauzia Harrell, TRACIE - 10/05/2019 12:30 EDT Fauzia Harrell, TRACIE ? 10/05/2019 12:32 Airway Date/Time: 10/05/2019 12:20 Urgency: elective Airway not difficult General Information and Staff Patient location during procedure: OR Performed: resident/[facility]/AA Indications and Patient Condition Indications for airway management: anesthesia Sedation level: GA Preoxygenated: yes Ventilation assessment: 0 - not attempted Final Airway Details Final airway type: supraglottic airway Successful airway: LMA and classic Size 4 Number of attempts at approach: 1 Additional Comments Atraumatic Placement #[id number], Dentition intact as Preop Preeti Mae MD ANESTHESIA ORDERABLES Fin al Result documented in this encounter Visit Diagnoses Not on filedocumented in this encounter Administered Medications Inactive Administered Medications - up to 3 most recent administrations Medication Order MAR Action Action Date Dose Rate Site ceFAZolin (ANCEF) syringe 2 g 2 g, intravenous, Administer over 10 Minutes, LINE LOCATOR TO O.R., 1 dose, First dose on 10/05/19 at 0700, Routine Given 10/05/2019 12:12 EDT 2,000 mg fentaNYL citrate (PF) injection PRN, Starting on 10/05/19 at 1205, Until 10/05/19 at 1415, Routine, Anesthesia Intraprocedure Given 10/05/2019 12:59 EDT 25 mcg Given 10/05/2019 12:50 EDT 25 mcg Given 10/05/2019 12:44 EDT 25 mcg ketAMINE in NaCl, iso-osmotic (KETALAR) 50 mg/5 mL (10 mg/mL) IV injection PRN, Starting on 10/05/19 at 1217, Until 10/05/19 at 1415, Routine, Anesthesia Intraprocedure Given 10/05/2019 12:17 EDT 20 mg lactated ringers (LR) infusion intravenous, FA IP EQF CONTINUOUS PRN FOR ONE STEP MEDS, Starting on Sun 8 at 1155, Until Sun 8 at 1415, Routine, Anesthesia Intraprocedure New Bag 10/05/2019 11:55 EDT lidocaine (PF) 20 mg/mL (2 %) injection PRN, Starting on Sun 8 at 1218, Until Sun 8 at 1415, Routine, Anesthesia Intraprocedure Given 10/05/2019 12:18 EDT 70 mg midazolam (PF) (VERSED) injection PRN, Starting on 10/05/19 at 1205, Until Sun 8 at 1415, Routine, Anesthesia Intraprocedure Given 10/05/2019 12:05 EDT 2 mg morphine injection PRN, Starting on 10/05/19 at 1255, Until Sun 8 at 1415, Routine, Anesthesia Intraprocedure Given 10/05/2019 14:10 EDT 2 mg Given 10/05/2019 14:07 EDT 2 mg Given 10/05/2019 12:55 EDT 1 mg ondansetron (PF) (ZOFRAN) injection PRN, Starting on 10/05/19 at 1238, Until Sun 8 at 1415, Routine, Anesthesia Intraprocedure Given 10/05/2019 12:38 EDT 4 mg propOFol (DIPRIVAN) injection PRN, Starting on Sun 8 at 1218, Until 10/05/19 at 1415, Routine, Anesthesia Intraprocedure Given 10/05/2019 12:18 EDT 200 mg documented in this encounter Care Teams Report Analyst Relationship Specialty Start Date End Date Jason Batres MD [address] [place] [id number] PCP - General 07/27/11 12/31/23 documented as of this encounter
--- OUTSIDE RECORDS SUMMARY | 2024-02-28 16:51 | XMS_ITS | Encounter Summary ---
Author Organization [facility] Address [address] [place] [address] Care Team Providers Care Human Resources Trainee Name Role Phone Karishma Batres MD Primary Care Provi margarita Reason for Visit * Reason Comments Wound Check Pt arrives to triage in WC with . Pt reports chronic Right 2nd toe ulceration, now black, necrotic, painful. Pt has redness that extends to midfoot. Denies fever, chills. Pt reports brief episode of chills/ rigors two nights ago. Skin otherwise PWD, RR unlabored, NAD. * Auth/Cert Specialty Diagnoses / Procedures [facility] To Contact Diagnoses Osteomyelitis ([facility]) Diabetic foot infection ([facility]) Osteomyelitis, unspecified site, unspecified type ([facility]) Referral ID Status Reason Start Date Expiration Date Visits Re quested Visits Authorized [id number] 1 1 Encounter Details Date Type Department Care Team (Late st Contact Info) Description 10/09/2019 14:25 EDT - 10/09/2019 16:20 EDT Surgery [facility] [place] [facility] [address] [place] [address] Angelina Gonzales DPM [address] [place] [phone] Right foot transmetatarsal amputation [[id number] (CPT??)] Surgery Details Date/Time Status Location OR Service Patient Class Case Class Case Type Trauma Case? 10/09/2019 1425 Posted [facility] OR MOR 19 Orthopedics Inpatient H - Elective Panel 1 Procedure LRB Anes Op Region Wound Class Comments Right foot transmetatarsal amputation Right Monitored Anesthesia Care Foot Class III/ Contaminated Surgeon Surgeon Role Service Panel Angelina Gonzales DPM Primary Orthopedics 1 documented in this encounter Social [...] Sign Reading Time Taken Comments Blood Pressure 117/62 10/09/2019 1449 EDT Pulse 89 10/06/2019 1642 EDT Temperature 36.5 ??C (97.7 ??F) 10/09/2019 1449 EDT Respiratory Rate 16 10/09/2019 1449 EDT Oxygen Saturation 94% 10/09/2019 1449 EDT Inhaled Oxygen Concentration - - Weight 110.1 kg (242 lb 11.6 oz) 10/03/2019 2325 EDT Height 188 cm (6' 2) 10/03/2019 1953 EDT Body Mass Index 31.16 10/03/20191952 EDT [...] Anna Stephens RN documented in this encounter Discharge Summaries [...] *Acute osteomyelitis of right ankle or foot ([facility]) 10/03/2019 Added automatically from request for surgery [id number] ??? Diabetic foot infection ([facility]) 10/04/2019 ??? Type 2 diabetes mellitus with diabetic polyneuropathy, with long-term current use of insulin ([facility]) 06/24/2018 Resolved Hospital Problems No resolved problems [...] and was set up for discharge to [facility] on 10/15/2019. ENDOCRINE RECOMMENDATIONS: Pt has T2DM of unknown duration which has been poorly controlled (Hgb A1c 15.8). He has been non-compliant with home medications and BG monitoring. ?? Placed on basal/bolus regimen in the hospital. Glargine 45 units with aspart 12 units with meals worked for him well. Today he is going to [facility] and sugars are down trending a bit. [...] Oct 21, 2019 10:30 Televideo Short with Glneys Desir APRN [facility] Infectious Disease [facility] (--) [address] [facility] [id number] Oct 24, 2019 13:30 Post Op Visit with Angelina Gonzales DPM [facility] Ankle [facility] - [facility] (--) [address] [facility] [id number] Oct 28, 2019 10:00 Televideo Short with Glenys Desir APRN [facility] Infectious Disease [facility] (--) [address] [id number] Nov 04, 2019 10:30 Televideo Short with Glenys Desir APRN [facility] Infectious Disease [facility] (--) [address] [address] Nov 11, 2019 10:30 Televideo Short with Glenys Desir APRN [facility] Infectious Disease [facility] (--) [address] [address] Nov 17, 2019 13:00 Televideo Short with Jorge Cunningham MD [facility] Infectious Disease - [facility] (--) [address] [address] Follow-up appointments and procedures Amb Consult/Follow Up Orthopedics Reason for Request: s/p right TMA with Christian 10/09 Authorizing Provider: Rainer Cavazos MD Appointments See Angelina Christian DPM @ [facility] is located at [address] [place] [address]. Authorizing Provider: Rainer Cavazos MD Call [phone] with questions Authorizing Provider: Rainer Cavazos MD [...] Notes * Eleno Murcia MD - 10/15/2019 150 EDT INFECTIOUS DISEASES CONSULT SERVICE PROGRESS NOTE Patient: Jeff Narvaez : 1960 Service: Ortho Date of Admission: 10/03/2019 Today's Date: 10/15/19 CHIEF COMPLAINT: Foot infection 24 notable events: none major Subjective: doing well today, pain is well controlled, no N/V or diarrhea or rash, no perceived side effects to abx. Likely to go to [facility] today. REVIEW OF SYSTEMS: 10-point review of [...] h/o poorly controlled t2DM, craniopharyngioma s/p resection [id number] w/ some memory and balance deficits, prior [...] team Trent Murcia MD [id number] Infectious Diseases Diagnosis: osteomyelitis Location: R foot Intravenous antibiotic name and dose: ertapenem 1g IV q24h End of therapy date: 11/19/19 Location to receive IV therapy: [facility] Plan for oral antibiotics after IV complete: none Outpatient OPAT ID provider: Divina or Marisa * Morris Parsons, PT - 10/15/2019 5743 EDT he Rehabilitation Therapy Acute [facility] Physical Therapy Discontinue/Discharge Note Date of Service: [...] other consults recommended at this time MORRIS PARSONS, PT 10/16/2019 13:55 [id number] * Francine Cheek LICSW - 10/15/2019 1213 EDT CASE MANAGEMENT DISCHARGE NOTE Confirmed with team that pt is medically stable for discharge. Confirmed with Millie Solano in admissions at [facility] that facility is able to accept pt with IV abx and wound vac today. DISCHARGE DATE/TIME: 10/15/2019 at 3:00pm DESTINATION: [facility] (If discharging to [facility]) COVID swab ordered and completed: Ordered and completed yesterday 10/14/2019with negative results received. TRANSPORTATION: [employer] wheelchair van - pt will be picked up in the [facility] lobby. ACCEPTING MD AND NUMBER: Dr. 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 Patient and/or family who participated in discharge plan: Patient and Nguyen (P: [phone]) [place] Ext [phone] Pager #[phone] * Yusef Mccarty MD - 10/15/2019 0924 EDT Endocrine/Diabetes Follow Up/Progress Note Admit Date: 10/03/2019 Hospital day LOS: 11 days Date of Service: 10/15/2019 Reason for Following: T2DM with hyperglycemia Subjective: Pt is resting comfortably in bed, no complaints today, has a good appetite. Going to [facility] today Diabetes HX: Duration: Unknown Control: Currently [...] hypothyroidism, memory impairment (unclear) who presented to [facility] 10/03/2019 with R foot pain over 1 [...] Multimodal pain control Disposition- [facility] today Rainer Cavazos, MD 10/15/19 6:06 0826 * Francine Cheek LICSW - 10/14/2019 1339 EDT SW/CM Progress Note: Pt is awaiting [facility] placement. He is accepted at [facility] pending insurance authorization from [facility]. Anticipate he will be able to d/c tomorrow. COVID-19 swab will be needed today with results back prior to discharge to [facility] [place] Ext [phone] Pager #[phone] * Eleno Murcia MD - 10/14/2019 1328 EDT INFECTIOUS DISEASES CONSULT SERVICE PROGRESS NOTE [...] h/o poorly controlled t2DM, craniopharyngioma s/p resection [id number] w/ some memory and balance deficits, prior [...] hypothyroidism, memory impairment (unclear) who presented to [facility] 10/03/2019 with R foot pain over 1 [...] for now. Patient will be going to [facility] when ready for discharge and have discussed [...] Garcia, PT - 10/14/2019 1042 EDT The Rehabilitation Therapy Acute Therapy [facility] Contact Note Date of Service: [...] MD 10/14/19 1:44 0826 * Francine Cheek [facility] - 10/13/2019 1241 EDT SW/CM Progress Note: Spoke with pt's Nguyen (P: [phone]). She would like for pt to go to [facility] when medically ready for discharge. Sent message to Millie Solano in admissions who has not made a decision on pt's acceptance as of yet. Pt does have a bed offer at [facility] if [facility] is unable to [place] Ext [phone] Pager #[phone] * Eleno Murcia MD - 10/13/2019 1023 [...] h/o poorly controlled t2DM, craniopharyngioma s/p resection [id number] w/ some memory and balance deficits, prior [...] hypothyroidism, memory impairment (unclear) who presented to [facility] 10/03/2019 with R foot pain over 1 [...] changes today. Patient will be going to [facility] when ready for discharge and have discussed [...] Continues strict NWB, elevation. Discussed with Jeff loomis, and Nguyen over the weekend- plan for discharge to [facility] when ready for discharge due to NWB [...] FHL, AT, GSC Labs: BUN/Cr/glu/ALT/AST/amyl/lip: --/0.58/--/--/--/--/-- (10/09 0632) A: Jeff Narvaez is a 58 y.o. [...] hypothyroidism, memory impairment (unclear) who presented to [facility] 10/03/2019 with R foot pain over 1 [...] hypothyroidism, memory impairment (unclear) who presented to [facility] 10/03/2019 with R foot pain over 1 [...] note. Ketty Nicole MD 10/11/2019 11:45 * Pravin Elizabeth Kaelyn - 10/10/2019 1611 EDT Follow-up visit with [...] at initial interview, hehas been snacking on [place] cheddar while admitted, suggested that he could [...] referral for outpatient nutrition counseling at discharge. Elizabeth Costello RD [place] 6 pager number: [phone] * Francine Cheek LICSW - 10/10/2019 6309 EDT SW/CM Progress Note: Pt was evaluated by PT and recommendation is [facility]. Spoke with pt's Nguyen (P: [phone]) to discuss options. She would like to look in [facility] and [facility]. Referral sent. She will follow-up with preferences after taking some time to research the [place] Ext [phone] Pager #[phone] * OrtizLauren bryantnne, PT - 10/10/2019 0846 EDT Rehabilitation Therapy Acute Therapies [facility] Physical Therapy Encounter Note Date of Service: [...] this time MORRIS PARSONS PT 10/10/2019 8:46 [phone] * Marija Bajwa MD - 10/10/2019 0808 [...] hypothyroidism, memory impairment (unclear) who presented to [facility] 10/03/2019 with R foot pain over 1 [...] 12:20 * Rainer Cavazos MD - 10/10/2019 0686 EDT Orthopaedic Progress Note Pt Name: Jeff [...] at 10/10/2019 7:51 EDT Associated attestation - Angelina Gonzales DPM - 10/10/2019 0751 EDT Attestation [...] week. * Raman Cary MD - 10/09/2019 2137 EDT Ortho Post Op Check: S-Doing well [...] Cortext * Marija Bajwa MD - 10/09/2019 0811 EDT Endocrine/Diabetes Follow Up/Progress Note Admit Date: [...] hypothyroidism, memory impairment (unclear) who presented to [facility] 10/03/2019 with R foot pain over 1 [...] Hatch, PT - 10/09/2019 0712 EDT The Rehabilitation Therapy Acute Therapy [facility] Physical Therapy Contact Note Date of Service: [...] 48 hoursand he has continued to order [place] cheese and hard-cooked egg as low carb [...] Cavazos MD 10/08/19 7:24 0826 * Lauren Vazquez RN - 10/07/2019 1701 EDT Diabetes Nurse Clinician met with Jeff again today for a meter teach and review his basic conceptsof diabetes education. Jeff will continue to need layered on education while he is hospitalized. Nursing to encourage hi to self inject and do BG checking. Lauren SERNAN operations and maintenance technician Nurse Clinician#[id number] * Shelly Garcia, PT - 10/07/2019 1516 EDT Rehabilitation Therapy Acute Therapies [facility] Physical Therapy Encounter Note Date of Service: [...] other consults recommended at this time Pager: [phone] Shelly Garcia, PT 10/07/2019 15:17 * Rainer [...] WBC/Hgb/Hct/Plts: 13.80, 13.80/11.3, 11.3/32.7, 32.7/294, 294 (10/05 753) Na/K/Cl/CO2: 131/3.0/94/30 (10/05 753) BUN/Cr/glu/ALT/AST/amyl/lip: 6/0.51/--/--/--/--/-- (10/05 753) PT/INR/PTT: --/--/28 (10/03 143) A: Jeff Narvaez [...] today. * Mynor Cox MD - 10/06/2019 192 EDT Medicine Progress Note Service Date: 10/06/2019 [...] 10/06/2019 19:20 * Armin Arzate - 10/06/2019 1917 EDT Initial Case Management/Social Work Assessment and Discharge Plan/Readmission Risk Assessment REASON FOR ADMISSION: Osteomyelitis ([facility]) Patient understands reason for admission: Yes PATIENT CONTACT INFO VERIFIED: Yes PATIENT ADDRESS VERIFIED: Yes Type of housing (single family, condo, apartment, intermediate, single room occupancy, [facility] funded hotel room, group snf) - single family Who does the patient live with? spouse Does the patient have access to their own bedroom/bathroom/kitchen - or is it shared with others? Shares with spouse Name of housing complex (ex [employer] [facility], [facility], etc)- n/a Housing Authority/Managing Organization - n/a Community Care Providers (corrections caseworker, [facility] nurse, etc) name and contact information- n/a [...] Type of Healthcare Directive: Durable power of digital traffic coordinator for health care Copy in Chart: No, copy requested from family Information Provided on Healthcare Directives: No Information on Healthcare Directives Requested: No DIRECTIVES FOR FINANCES: Directive For Finances: No TRANSPORTATION: Transportation: Self, Family CULTURAL, JAINISM and/or LANGUAGE factors affecting health care/discharge planning: [...] device: None Community Services: Home health, MOW, SASH-none of [...] DME Provider: not at this time Pharmacy: [id number] - [place], [place] - [address] [place] [address] [place] [address] [id number] - [place], [place] - [address] [place] [address] [place] [address] Home Health: Not at this time Other: [...] adult sons who live and work in [place] and [place]. Patient tellshis will transport patient home if home is discharge destination. ARMIN ARZATE 10/06/2019 17:37 * Lauren Vazquez RN - 10/06/2019 1402 EDT Diabetes Nurse Clinician met with Mr Narvaez for review of SDM. Current A1C 15.9 EAG= 410. 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 Lives with his Nguyen in [facility]. SMBG: does not check very often, maybe [...] for review of current medications. Lauren LITTLEJOHN operations and maintenance technician Nurse Clinician #[id number] * Shelly Garcia, PT - 10/06/2019 1044 EDT The Rehabilitation Therapy Acute Therapy [facility] Physical Therapy Initial Evaluation Note Date of [...] male admitted on 10/03/2019 secondary to Osteomyelitis (HCC-CMS) [M86.9] Diabetic foot infection (HCC-CMS) [E11.628, L08.9] Osteomyelitis, unspecified site, unspecified type (HCC-CMS) [M86.9] The patient lives at [address] [place] [address] Safety Assessment / Living Environment Home environment: [...] to therapy session, After therapy session By: [id number] communication About Mobility and Gait: Mobility status [...] to activity today. [facility], pending overall progress with functional mobility. Short-Term Goals: NE Long-Term Goals: Time Frame: 1-2 weeks Goal: bed mobility: supervision Goal: transfers: supervision bed<>chair Goal: gait: ambulation >50 feet with supervision Goal: stairs: ascending/descending stairs with min contact assist PLAN: Necessity: Physical therapy will be provided by the physical therapist and/or physical therapist surgical first assistant when medically appropriate Frequency: Times per [...] To be determined by next provider Pager: [phone] Shelly Garcia, PT 10/06/2019 16:49 * Rainer Cavazos MD - 10/06/2019 7575 EDT Orthopaedic Progress Note Pt Name: Jeff [...] BUN/Cr/glu/ALT/AST/amyl/lip: 12/0.50/150/--/--/--/-- (10/04 721) PT/INR/PTT: --/--/28 (10/03 1431) A: Jeff Narvaez [...] Garcia, PT - 10/05/2019 1156 EDT The Rehabilitation Therapy Acute Therapy [facility] Physical Therapy Contact Note Date of Service: [...] curbside Scanlon: no Bowel regimen PT Eval, dispo Appreciate Medicine recommendations Js Meza MD 10/04/2019 9:59 PGY2 5473 Cosigned by Virgilio Ramirez MD at 10/06/2019 17:12 EDT documented in this encounter Procedure Notes * Nguyen Lagunas RN - 10/15/2019 1231 EDT Central Catheter Insertion First Catheter This Session band presser: Patient Location: [id number] Preliminary Data: Insertion Date: 10/15/19 Insertion Time: 1150 First Installation And Repair Technician: Nguyen Watts RN RN/MA Documenting Procedure: Karishma [...] CHANDNI CONLEY Lidocaine 1% - Route/Dose (cc's): Intradermal Central Line Materials and Methods: Number of Attempts: 1 Number of Sites Attempted: 1 Number of Kits Used: 1 Location Device Used: Sherlock;Ultrasound;3CG Central Line Operators: Number Of Operators: 1 First Installation And Repair Technician's Name: Nguyen Jain First Installation And Repair Technician's Title: Vascular post closing specialist Unless otherwise noted, there were no complications, [...] hypothyroidism, memory impairment (unclear) who presented to [facility] 10/03/2019 with R foot pain over 1 [...] check BG regularly Regular Diabetes Provider: PCP PM PSH Past Medical History: Diagnosis Date ??? [...] 10/09/2019] ceFAZolin (ANCEF) syringe 2 g, intravenous, TRUCK TRAILER MECHANIC TO O.R. ??? cefePIME (MAXIPIME) 2,000 mg [...] hypothyroidism, memory impairment (unclear) who presented to [facility] 10/03/2019 with R foot pain over 1 [...] y.o. diabetic gentleman who was admitted to [facility] on 10/03/2019 with right foot pain norberto [...] right 2nd toe osteo s/p partial amputation 2017 - foreign bodies: denies Medications: reviewed. Anti-microbials: - pip/tazo x1 on 10/02 - cefepime 10/02-current - metronidazole 10/02-current - vanco 10/02-current Allergies: reviewed. No known antibiotic allergies. Social History: reviewed. Lives in [place] w/ his Nguyen. Family History: Reviewed. No [...] MD Infectious Disease Attending * Elizabeth Costello C - 10/06/2019 1133 EDTAssociated Order(s): CONSULT NUTRITION [...] 10 years. Met with an RD at [facility] for nutrition education at some point in [...] 31.16 kg/m??. Weights Filed This Admission 10/03/19 5870 Weight: (!) 110.1 kg (242 lb 11.6 [...] adjust insulin as needed Elizabeth Costello RD, CD [place] 6 pager number: [phone] * Js Meza MD - 10/04/2019 1087 EDT Images from the original note were not included. Orthopaedic Surgery Consultation Date: 10/04/2019 Reason for Consult: R Diabetic foot wound HPI: Jeff Narvaez is a very pleasant 58 y.o. male the past medical history of uncontrolled T2DM oninsulin (A1c 14), craniopharyngioma s/p resection at [facility], prior second R phalanx resection, hypothyroidism, who [...] No Known Allergies. FHx/SHx: Pt lives at [address] [place] [address]. Non Smoker, occasional EtoH, denies IVDU. 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 Assessment: Jeff Narvaez 1960 [id number] Jeff Narvaez is a 58 y.o. male [...] Labs I have personally reviewed Recent Labs 10/03/192224 WBC 15.23* RBC 4.18* HGB 12.6* HCT 36.5* MCV 87 MCH 30.1 MCHC 34.5 PLT 274 NEUTROABS 12.61* SEDRATE >100* Recent Labs 10/03/192224 NA 130* K 3.4* CL 87* CO2 29 BUN 22 CREATININE 0.73 Recent Labs 10/03/192237 COLOR Yellow CLARITYU Clear GLUCOSEU 2+* BILIRUBINUR [...] SERVICE DATE: 10/09/2019 SURGEON: Angelina Gonzales DPM VICE PRESIDENT FIXED INCOME: None. PREOPERATIVE DIAGNOSIS: Right foot abscess and [...] retained. Angelina Gonzales DPM / CF Confirmation: [id number] Dictation ID: [id number] cc: * OR PreOp - [place] [...] prior to surgery. Internal Control Charge Nurse: [phone] OR nurse will call to floor if further report is needed. Other issues identified: Angeline Cedillo is contact @ [phone] In coordination with inpatient nurse, this patient and chart has been reviewed for OR readiness. Pre Op PIC Nurse [phone] * OR Surgeon - Virgilio Ramirez MD - 10/05/2019 1711 EDT OPERATIVE REPORT SERVICE DATE: 10/05/19 SURGEON: Virgilio Ramirez MD VICE PRESIDENT FIXED INCOME: Sachin Castle MD; Hayes Kaplan MD PREOPERATIVE [...] Osteomyelitis (HCC-CMS) Osteomyelitis, unspecified site, unspecified type ([facility]) This documentation is recorded by Leslie Singh [...] exam for emergent medical conditions at the on 10/03/2019 Scribe attestation: This documentation is [...] Glucose, POC 376 (*) Final Tech ID [id number] Final HN LAB POC COMMENT (GLUCOSE) Test Performed by Nursing Services Final POCT URINE DIPSTICK, CLINITEK - Abnormal Color, UA Yellow Final Clarity, UA Clear Final Glucose, UA 2+ (*) Final Bilirubin, UA 1+ (*) Final Ketones, UA 1+ (*) Final Specific [place], Urine 1.015 Final Blood, UA Negative Final pH, UA 6.0 Final Protein, UA 1+ (*) Final Urobilinogen, UA 0.2 Final Nitrite, UA Negative Final Leuk Esterase Negative Final Tech ID [id number] Final HN LAB COMMENT (CLINITEK, UR) Test performed at Emergency Department Final BUN - Normal BUN 22 Final CREATININE - Normal Creatinine 0.73 Final eGFR 103 Final LACTIC ACID - Normal Lactic Acid 1.2 Final BACTERIAL CULTURE, BLOOD BACTERIAL CULTURE, BLOOD COVID-19 TESTING COVID-19 TEST [facility] LAB PCR POCT URINE CLINITEK (DIPSTICK) - DOES NOT REFLEX Narrative: The following orders were created for panel order POCT URINE CLINITEK (DIPSTICK) - DOES NOT REFLEX. Procedure Abnormality Status --------- ------ POCT URINE DIPSTICK, CLI...[[id number]] Abnormal Final result POCT CSN BARCODE URINE D...[[id number]] Final result Please view results for these [...] of medication. Clinical Impression Final diagnoses: Osteomyelitis ([facility]) Osteomyelitis, unspecified site, unspecified type ([facility]) Disposition Signed out (see progress Notes) [...] to the lab, awaiting result, discharging to [facility] today. NINO FORBES RN 10/15/2019 0:25 * [...] Pain Note D: At 0045 patient c/o 1010. Pain located in the righ Foot. Patient [...] 10/13/2019 2:50 * Plan of Care - Jonny Walsh - 10/12/2019 0748 EDT Data: Pt s/p#3 from Right foot [...] of Care - Jonny Walsh - 10/11/2019 1826 EDT Data: Pt s/p#2 from Right foot [...] Documentation Outcome: Met This Shift Flowsheets (Taken 10/10/20191952) Area of Focus: Pain/ Comfort Goal This Shift: pain will be tolerable Data: Pt POD #2 s/p R foot transmetatarsal amputation. A&Ox3, forgetful/short term memory loss.Dressing to RLE C/D/I. Pt repositioning self in bed with use of grab bars. Voiding in the urinal. Highest pain complaint /10 this shift. Action: Elevated RLE on pillows. [...] Pt states pain is well controlled @ 10. Will continue to monitor and assist. DYLAN [...] Note - Angelina Gonzales DPM - 10/09/2019 1718 EDT Brief Post-Op Note Date of Surgery: [...] Goal: Care Plan Documentation Flowsheets (Taken 10/09/2019 8863) Area of Focus: Communication Goal This Shift: [...] Care - Karishma Ayoub RN - 10/08/2019 1224 EDT Data: Pt. A/Ox3 but forgetful and [...] Care - Rainer Cavazos MD - 10/08/2019 0729 EDT Pre Op Checklist - Consent completed [...] 10/08/2019 6:18 * Plan of Care - Jonny Walsh - 10/07/2019 1849 EDT Data: Pt s/p#2 [...] 10/07/2019 18:49 * Plan of Care - pJ Swanson RN - 10/07/2019 0158 EDT Problem: [...] Documentation Outcome: Met This Shift Flowsheets (Taken 10/06/2019 1000) Goal This Shift: manage pain/mobilize pt Note: [...] Outcome: Met This Shift Flowsheets (Taken 10/05/2019 1911) Area of Focus: GI//Elimination Goal This Shift: Pt will void Note: Data: Pt day of right second toe amp, wv intact with bloody drainage. Pain 8/10 and pt due tovoid.Blood pressure 125/72, pulse [...] ray amputations, wound vac application Surgeon: James Fire Chief'S Aide: Tin Kaplan Anesthesia Type: General Tourniquet Time: [...] of Care - Venessa Sweeney RN - 10/05/201928 EDT Problem: Daily Care Plan Goals Goal: Care Plan Documentation Outcome: Met This Shift Flowsheets Taken 10/05/201928 Area of Focus: Pain/ Comfort Taken 10/04/20191956 Goal This Shift: adequate pain control Data: Pt admitted with R foot osteo. at bedside changing dressing beginning of shift. [...] Oriented pt to room and unit. Educated speech correction consultant larson, phone, and bed control use. Administered [...] Acute osteomyelitis of right ankle or foot ([facility]) Ordered: 10/15/2019 BUN Lab Routine Acute osteomyelitis of right ankle or foot ([facility]) Ordered: 10/15/2019 CREATININE Lab Routine Acute osteomyelitis of right ankle or foot ([facility]) Ordered: 10/15/2019 SED. RATE:WESTERGREN Lab Routine Acute osteomyelitis of right ankle or foot ([facility]) Ordered: 10/15/2019 C REACTIVE PROTEIN Lab Routine Acute osteomyelitis of right ankle or foot ([facility]) Ordered: 10/15/2019 documented as of this encounter Procedures Procedure Name Priority Date/Time Associated Diagnosis Comments IMPLANT RECORD - SCANNED 10/22/2019 11:21 EDT ECG REPORT - SCANNED 10/20/2019 10:08 EDT POCT GLUCOSE, INTERFACED Routine 10/15/2019 13:17 EDT POCT GLUCOSE, INTERFACED Routine 10/15/2019 9:26 EDT ZZCOVID-19 TEST [facility] PCR Today 10/14/2019 21:04 EDT COVID-19 TESTING Routine 10/14/2019 21:0 4 EDT POCT GLUCOSE, INTERFACED Routine 10/14/2019 20:52 [...] 10/09/2019 17:16 EDT SURGICAL PATHOLOGY Routine 10/09/2019 16 :11 EDT AMPUTATION, FOOT, TRANSMETATARSAL 10/09/2019 15:07 EDT Acute osteomyelitis of right ankle or foot ([facility]) POCT GLUCOSE, INTERFACED Routine 10/09/2019 14:41 EDT POCT GLUCOSE, INTERFACED Routine 10/09/2019 13:24 EDT POCT GLUCOSE, INTERFACED Routine 10/09/2019 9:29 EDT POCT GLUCOSE, INTERFACED Routine 10/09/2019 5:57 EDT VANCOMYCIN TROUGH Routine 10/09/2019 3:3 1 EDT POCT GLUCOSE, INTERFACED Routine 10/08/2019 21:16 [...] 10/06/2019 18:47 EDT VANCOMYCIN TROUGH Routine 10/06/2019 15: 30 EDT POCT GLUCOSE, INTERFACED Routine 10/06/2019 14:03 EDT POCT GLUCOSE, INTERFACED Routine 10/06/2019 9:46 EDT SCREENING GLUCOSE Routine 10/06/2019 7:5 4 EDT COMPLETE BLOOD COUNT Routine 10/06/2019 7:54 EDT COMPLETE BLOOD COUNT AND DIFFERENTIAL Routine 10/06/2019 7:54 EDT BUN Routine 10/06/2019 7:54 EDT HEMOGLOBIN A1C Add-On 10/06/2019 7:54 EDT CREATININE Routine 10/06/2019 7:54 EDT ELECTROLYTES Routine 10/06/2019 7:54 EDT POCT GLUCOSE, INTERFACED Routine 10/05/2019 22:07 EDT POCT GLUCOSE, INTERFACED Routine 10/05/2019 19:11 EDT ANAEROBE CULTURE/SMEAR(INC. AEROBES), OTHER Routine 10/05/2019 13:36 [...] 20:07 EDT BACTERIAL CULTURE- MRSA, GRP B STREP-[facility] ([facility] USE ONLY) Routine 10/04/2019 17:44 EDT POCT GLUCOSE, INTERFACED Routine 10/04/2019 17:28 EDT PTT Routine 10/04/2019 14:31 EDT VITAMIN D (25,[place]) Routine 10/04/2019 13: 02 EDT PREALBUMIN Routine 10/04/2019 13:02 EDT PHOSPHORUS Routine 10/04/2019 13:02 EDT ALKALINE PHOSPHATASE Routine 10/04/2019 13:02 EDT MAGNESIUM Routine 10/04/2019 13:02 EDT HEMOGLOBIN A1C Routine 10/04/2019 13:02 EDT CALCIUM Routine 10/04/2019 13:02 EDT ALBUMIN Routine 10/04/2019 13:02 EDT TYPE AND SCREEN Routine 10/04/2019 13:01 EDT EKG 12-LEAD STAT 10/04/2019 11:58 EDT XR CHEST 2 VIEWS STAT 10/04/2019 11:3 1 EDT MR FOREFOOT/MIDFOOT W WO CONTRAST RIGHT STAT 10/04/2019 11:14 EDT POCT GLUCOSE, INTERFACED Routine 10/04/2019 9:40 EDT XR TIBIA FIBULA RIGHT 2 VIEWS STAT 10/04/2019 4:35 EDT ANAEROBE CULTURE/SMEAR(INC. AEROBES), OTHER Routine 10/04/2019 2:22 EDT ZZCOVID-19 TEST [facility] PCR STAT 10/03/2019 22:56 EDT COVID-19 TESTING STAT 10/03/2019 22:5 6 EDT XR FOOT RIGHT 3 OR MORE [...] 22:25 EDT C REACTIVE PROTEIN Add-On 10/03/2019 22 :25 EDT BUN STAT 10/03/2019 22:25 EDT MAGNESIUM [...] 10/22/2019 11:2 1 EDT us Scan 2 Asphalt Distributor Tender PROCEDURE/MINOR SURGICAL OR DERABLES Final Result * ECG REPORT - SCANNED (10/20/2019 10:08 EDT) 10/20/2019 10:0 8 EDT us Scan 2 [employer]phalt Distributor Tender PROCEDURE/MINOR SURGICAL OR DERABLES Final Result * (ABNORMAL) POCT GLUCOSE, INTERFACED (10/15/2019 13:17 EDT) Glucose, POC 157(H) 70 - 100 mg/dL 10/15/2019 13:18 EDT [facility] tubing supervisor ID [id number] 10/15/2019 13:18 EDT [facility] HN LAB POC COMMENT (GLUCOSE) Test Performed by Nursing Services 10/15/2019 13:18 EDT [facility] Blood CAPILLARY BLOOD / Unknown 10/15/2019 13:17 EDT 10/15/2019 13:18 EDT us Angelina Gonzales DPM POINT OF CARE TEST ORDERABLES F inal Result [facility] [address] [place] [address] * (ABNORMAL) POCT GLUCOSE, INTERFACED (10/15/2019 9:26 EDT) Glucose, POC 104(H) 70 - 100 mg/dL 10/15/2019 9:27 EDT [facility] tubing supervisor ID [id number] 10/15/2019 9:27 EDT [facility] HN LAB POC COMMENT (GLUCOSE) Test Performed by Nursing Services 10/15/2019 9:27 EDT [facility] Blood CAPILLARY BLOOD / Unknown 10/15/2019 9:26 EDT 10/15/2019 9:27 EDT Raman Cary MD POINT OF CARE TEST ORDERAB LES Final Result Performing Organization Address [facility] Co de Phone Number [facility] [address] [place] [id number] * COVID-19 TEST [facility] PCR (10/14/2019 21:04 EDT) Swab ENTIRE NASOPHARYNX / Unknown Swab / Unknown 10/14/2019 21:04 EDT 10/14/2019 21:13 EDT Nikia Hernandez PA-C MICROBIOLOGY - GENERAL ORDERABLES Final Result Performing Organization Address [facility] Co de Phone Number [facility] [address] [place] [address] * COVID-19 TESTING (10/14/2019 21:04 EDT) COVID-19 rt-PCR Result Negative Negative 10/15/2019 1:03 EDT [facility] Comment: This test has [...] history, and epidemiological information. Performed on the [employer] Fusion instrument Performing Lab [facility] 10/15/2019 1:03 EDT [facility] Swab ENTIRE NASOPHARYNX / Unknown Swab / Unknown 10/14/2019 21:04 EDT 10/14/2019 21:13 EDT us Nikia Hernandez PA-C MICROBIOLOGY - GENERAL ORDERABLES Final Result [facility] [address] [place] [address] * (ABNORMAL) POCT GLUCOSE, INTERFACED (10/14/2019 20:52 EDT) Glucose, POC 105(H) 70 - 100 mg/dL 10/14/2019 20:55 EDT [facility] tubing supervisor ID [id number] 10/14/2019 20:55 EDT [facility] HN LAB POC COMMENT (GLUCOSE) Test Performed by Nursing Services 10/14/2019 20:55 EDT [facility] Blood CAPILLARY BLOOD / Unknown 10/14/2019 20:52 EDT 10/14/2019 20:55 EDT us Raman Cary MD POINT OF CARE TEST ORDERAB LES Final Result Performing Organization Address [facility]/ZIP Co de Phone Number [facility] [address] [place] [address] * (ABNORMAL) POCT GLUCOSE, INTERFACED (10/14/2019 17:37 EDT) Glucose, POC 145(H) 70 - 100 mg/dL 10/14/2019 17:38 EDT [facility] tubing supervisor ID [id number] 10/14/2019 17:38 EDT [facility] HN LAB POC COMMENT (GLUCOSE) Test Performed by Nursing Services 10/14/2019 17:38 EDT [facility] Blood CAPILLARY BLOOD / Unknown 10/14/2019 17:37 EDT 10/14/2019 17:38 EDT us Angelina Gonzales DP POINT OF CARE TEST ORDERABLES F inal Result [facility] [address] [place] [address] * (ABNORMAL) POCT GLUCOSE, INTERFACED (10/14/2019 12:55 EDT) Glucose, POC 138(H) 70 - 100 mg/dL 10/14/2019 12:57 EDT [facility] tubing supervisor ID [id number] 10/14/2019 12:57 EDT [facility] HN LAB POC COMMENT (GLUCOSE) Test Performed by Nursing Services 10/14/2019 12:57 EDT [facility] Blood CAPILLARY BLOOD / Unknown 10/14/2019 12:55 EDT 10/14/2019 12:57 EDT us Angelina Gonzales DP POINT OF CARE TEST ORDERABLES F inal Result Performing Organization Address City/[facility]/ZIP Co de Phone Number [facility] [address] [place] [address] * (ABNORMAL) POCT GLUCOSE, INTERFACED (10/14/2019 7:53 EDT) Glucose, POC 175(H) 70 - 100 mg/dL 10/14/2019 7:55 EDT [facility] tubing supervisor ID [id number] 10/14/2019 7:55 EDT [facility] HN LAB POC COMMENT (GLUCOSE) Test Performed by Nursing Services 10/14/2019 7:55 EDT [facility] Blood CAPILLARY BLOOD / Unknown 10/14/2019 7:53 EDT 10/14/2019 7:55 EDT us Raman Cary MD POINT OF CARE TEST ORDERAB LES Final Result [facility] [address] [place] [address] * (ABNORMAL) POCT GLUCOSE, INTERFACED (10/13/2019 21:45 EDT) Glucose, POC 118(H) 70 - 100 mg/dL 10/13/2019 21:45 EDT [facility] tubing supervisor ID [id number] 10/13/2019 21:45 EDT [facility] HN LAB POC COMMENT (GLUCOSE) Test Performed by Nursing Services 10/13/2019 21:45 EDT [facility] Blood CAPILLARY BLOOD / Unknown 10/13/2019 21:45 EDT 10/13/2019 21:45 EDT us Raman Cary MD POINT OF CARE TEST ORDERAB LES Final Result Performing Organization Address [facility]/ZIP Co de Phone Number [facility] [address] [place] [address] * (ABNORMAL) POCT GLUCOSE, INTERFACED (10/13/2019 19:14 EDT) Glucose, POC 186(H) 70 - 100 mg/dL 10/13/2019 19:17 EDT [facility] tubing supervisor ID [id number] 10/13/2019 19:17 EDT [facility] HN LAB POC COMMENT (GLUCOSE) Test Performed by Nursing Services 10/13/2019 19:17 EDT [facility] Blood CAPILLARY BLOOD / Unknown 10/13/2019 19:14 EDT 10/13/2019 19:17 EDT us Angelina Gonzales [facility] POINT OF CARE TEST ORDERABLES F inal Result Performing Organization Address [facility] Co de Phone Number [facility] [address] [place] [address] * (ABNORMAL) POCT GLUCOSE, INTERFACED (10/13/2019 11:59 EDT) Glucose, POC 155(H) 70 - 100 mg/dL 10/13/2019 12:00 EDT [facility] tubing supervisor ID [id number] 10/13/2019 12:00 EDT [facility] HN LAB POC COMMENT (GLUCOSE) Test Performed by Nursing Services 10/13/2019 12:00 EDT [facility] Blood CAPILLARY BLOOD / Unknown 10/13/2019 11:59 EDT 10/13/2019 12:00 EDT us Angelina Gonzales [facility] POINT OF CARE TEST ORDERABLES F inal Result [facility] [address] [place] [address] * (ABNORMAL) POCT GLUCOSE, INTERFACED (10/13/2019 7:11 EDT) Glucose, POC 170(H) 70 - 100 mg/dL 10/13/2019 8:30 EDT [facility] tubing supervisor ID [id number] 10/13/2019 8:30 EDT [facility] HN LAB POC COMMENT (GLUCOSE) Test Performed by Nursing Services 10/13/2019 8:30 EDT [facility] Blood CAPILLARY BLOOD / Unknown 10/13/2019 7:11 EDT 10/13/2019 8:30 EDT us Raman Cary MD POINT OF CARE TEST ORDERAB LES Final Result Performing Organization Address [facility]/ZIP Co de Phone Number [facility] [address] [place] [address] * (ABNORMAL) POCT GLUCOSE, INTERFACED (10/12/2019 21:10 EDT) Glucose, POC 161(H) 70 - 100 mg/dL 10/12/2019 21:11 EDT [facility] tubing supervisor ID [id number] 10/12/2019 21:11 EDT [facility] HN LAB POC COMMENT (GLUCOSE) Test Performed by Nursing Services 10/12/2019 21:11 EDT [facility] Blood CAPILLARY BLOOD / Unknown 10/12/2019 21:10 EDT 10/12/2019 21:11 EDT us Raman Cary MD POINT OF CARE TEST ORDERAB LES Final Result Performing Organization Address City/[facility]/ZIP Co de Phone Number [facility] [address] [place] [address] * (ABNORMAL) POCT GLUCOSE, INTERFACED (10/12/2019 17:11 EDT) Glucose, POC 138(H) 70 - 100 mg/dL 10/12/2019 17:12 EDT [facility] tubing supervisor ID [id number] 10/12/2019 17:12 EDT [facility] HN LAB POC COMMENT (GLUCOSE) Test Performed by Nursing Services 10/12/2019 17:12 EDT [facility] Blood CAPILLARY BLOOD / Unknown 10/12/2019 17:11 EDT 10/12/2019 17:12 EDT us Raman Cary MD POINT OF CARE TEST ORDERAB LES Final Result Performing Organization Address [facility] Co de Phone Number [facility] [address] [place] [address] * (ABNORMAL) POCT GLUCOSE, INTERFACED (10/12/2019 12:06 EDT) Glucose, POC 185(H) 70 - 100 mg/dL 10/12/2019 12:07 EDT [facility] tubing supervisor ID [id number] 10/12/2019 12:07 EDT [facility] HN LAB POC COMMENT (GLUCOSE) Test Performed by Nursing Services 10/12/2019 12:07 EDT [facility] Blood CAPILLARY BLOOD / Unknown 10/12/2019 12:06 EDT 10/12/2019 12:07 EDT us Angelina Gonzales DPM POINT OF CARE TEST ORDERABLES F inal Result Performing Organization Address [facility] Co de Phone Number [facility] [address] [place] [address] * POCT GLUCOSE, INTERFACED (10/12/2019 7:27 EDT) Glucose, POC 83 70 - 100 mg/dL 10/12/2019 9:13 EDT [facility] tubing supervisor ID [id number] 10/12/2019 9:13 EDT [facility] HN LAB POC COMMENT (GLUCOSE) Test Performed by Nursing Services 10/12/2019 9:13 EDT [facility] Blood CAPILLARY BLOOD / Unknown 10/12/2019 7:27 EDT 10/12/2019 9:13 EDT us Raman Cary MD POINT OF CARE TEST ORDERAB LES Final Result [facility] [address] [place] [address] * (ABNORMAL) POCT GLUCOSE, INTERFACED (10/11/2019 21:03 EDT) Glucose, POC 132(H) 70 - 100 mg/dL 10/11/2019 21:08 EDT [facility] tubing supervisor ID [id number] 10/11/2019 21:08 EDT [facility] HN LAB POC COMMENT (GLUCOSE) Test Performed by Nursing Services 10/11/2019 21:08 EDT [facility] Blood CAPILLARY BLOOD / Unknown 10/11/2019 21:03 EDT 10/11/2019 21:08 EDT us Raman Cary MD POINT OF CARE TEST ORDERAB LES Final Result Performing Organization Address City/[facility]/ZIP Co de Phone Number [facility] [address] [place] [address] * (ABNORMAL) POCT GLUCOSE, INTERFACED (10/11/2019 17:58 EDT) Glucose, POC 124(H) 70 - 100 mg/dL 10/11/2019 17:59 EDT [facility] tubing supervisor ID [id number] 10/11/2019 17:59 EDT [facility] HN LAB POC COMMENT (GLUCOSE) Test Performed by Nursing Services 10/11/2019 17:59 EDT [facility] Blood CAPILLARY BLOOD / Unknown 10/11/2019 17:58 EDT 10/11/2019 17:59 EDT us Angelina Gonzales [facility] POINT OF CARE TEST ORDERABLES F inal Result [facility] [address] [place] [address] * (ABNORMAL) POCT GLUCOSE, INTERFACED (10/11/2019 13:39 EDT) Glucose, POC 289(H) 70 - 100 mg/dL 10/11/2019 13:40 EDT [facility] tubing supervisor ID [id number] 10/11/2019 13:40 EDT [facility] HN LAB POC COMMENT (GLUCOSE) Test Performed by Nursing Services 10/11/2019 13:40 EDT [facility] Blood CAPILLARY BLOOD / Unknown 10/11/2019 13:39 EDT 10/11/2019 13:40 EDT us Angelina Gonzales DP POINT OF CARE TEST ORDERABLES F inal Result Performing Organization Address City/[facility]/ZIP Co de Phone Number [facility] [address] [place] [address] * (ABNORMAL) POCT GLUCOSE, INTERFACED (10/11/2019 9:39 EDT) Glucose, POC 128(H) 70 - 100 mg/dL 10/11/2019 9:41 EDT [facility] tubing supervisor ID [id number] 10/11/2019 9:41 EDT [facility] HN LAB POC COMMENT (GLUCOSE) Test Performed by Nursing Services 10/11/2019 9:41 EDT [facility] Blood CAPILLARY BLOOD / Unknown 10/11/2019 9:39 EDT 10/11/2019 9:41 EDT us Raman Cary MD POINT OF CARE TEST ORDERAB LES Final Result Performing Organization Address City/[facility]/ZIP Co de Phone Number [facility] [address] [place] [address] * (ABNORMAL) POCT GLUCOSE, INTERFACED (10/11/2019 0:15 EDT) Glucose, POC 158(H) 70 - 100 mg/dL 10/11/2019 0:16 EDT [facility] tubing supervisor ID [id number] 10/11/2019 0:16 EDT [facility] HN LAB POC COMMENT (GLUCOSE) Test Performed by Nursing Services 10/11/2019 0:16 EDT [facility] Blood CAPILLARY BLOOD / Unknown 10/11/2019 0:15 EDT 10/11/2019 0:16 EDT us Angelina Gonzales DPM POINT OF CARE TEST ORDERABLES F inal Result [facility] [address] [place] [address] * (ABNORMAL) POCT GLUCOSE, INTERFACED (10/10/2019 21:03 EDT) Glucose, POC 287(H) 70 - 100 mg/dL 10/10/2019 21:07 EDT [facility] tubing supervisor ID [id number] 10/10/2019 21:07 EDT [facility] HN LAB POC COMMENT (GLUCOSE) Test Performed by Nursing Services 10/10/2019 21:07 EDT [facility] Blood CAPILLARY BLOOD / Unknown 10/10/2019 21:03 EDT 10/10/2019 21:07 EDT us Raman Cary MD POINT OF CARE TEST ORDERAB LES Final Result Performing Organization Address [facility]/ZIP Co de Phone Number [facility] [address] [place] [address] * (ABNORMAL) POCT GLUCOSE, INTERFACED (10/10/2019 18:15 EDT) Glucose, POC 297(H) 70 - 100 mg/dL 10/10/2019 18:17 EDT [facility] tubing supervisor ID [id number] 10/10/2019 18:17 EDT [facility] HN LAB POC COMMENT (GLUCOSE) Test Performed by Nursing Services 10/10/2019 18:17 EDT [facility] Blood CAPILLARY BLOOD / Unknown 10/10/2019 18:15 EDT 10/10/2019 18:17 EDT us Angelina Gonzales DPM POINT OF CARE TEST ORDERABLES F inal Result [facility] [address] [place] [address] * (ABNORMAL) POCT GLUCOSE, INTERFACED (10/10/2019 13:20 EDT) Glucose, POC 245(H) 70 - 100 mg/dL 10/10/2019 13:21 EDT [facility] tubing supervisor ID [id number] 10/10/2019 13:21 EDT [facility] HN LAB POC COMMENT (GLUCOSE) Test Performed by Nursing Services 10/10/2019 13:21 EDT [facility] Blood CAPILLARY BLOOD / Unknown 10/10/2019 13:20 EDT 10/10/2019 13:21 EDT us Angelina Gonzales [facility] POINT OF CARE TEST ORDERABLES F inal Result Performing Organization Address City/[facility]/ZIP Co de Phone Number [facility] [address] [place] [address] * (ABNORMAL) POCT GLUCOSE, INTERFACED (10/10/2019 7:37 EDT) Glucose, POC 269(H) 70 - 100 mg/dL 10/10/2019 7:39 EDT [facility] tubing supervisor ID [id number] 10/10/2019 7:39 EDT [facility] HN LAB POC COMMENT (GLUCOSE) Test Performed by Nursing Services 10/10/2019 7:39 EDT [facility] Blood CAPILLARY BLOOD / Unknown 10/10/2019 7:37 EDT 10/10/2019 7:39 EDT us Raman Cary MD POINT OF CARE TEST ORDERAB LES Final Result Performing Organization Address City/[facility]/ZIP Co de Phone Number [facility] [address] [place] [address] * (ABNORMAL) CREATININE (10/10/2019 6:32 EDT) Creatinine 0.58(L) 0.66 - 1.25 mg/dL 10/10/2019 8:00 EDT [facility] eGFR 113 >60 mL/min/1.7 3m2 10/10/2019 8:00 EDT [facility] Comment:eGFR calculated sarahi krishnan CKD-EPI equation for non- Americans. Multiply eGFR by 1.16 for patients. Blood VENOUS BLOOD / Unknown Venipuncture / Unknown 10/10/2019 6:32 EDT 10/10/2019 7:25 EDT Virgilio Ramirez MD CHEMISTRY & BLOOD GAS OR DERABLES Final Result Performing Organization Address [facility] Co de Phone Number [facility] [address] [place] [address] * (ABNORMAL) POCT GLUCOSE, INTERFACED (10/09/2019 21:52 EDT) Glucose, POC 156(H) 70 - 100 mg/dL 10/09/2019 21:55 EDT [facility] tubing supervisor ID [id number] 10/09/2019 21:55 EDT [facility] HN LAB POC COMMENT (GLUCOSE) Test Performed by Nursing Services 10/09/2019 21:55 EDT [facility] Blood CAPILLARY BLOOD / Unknown 10/09/2019 21:52 EDT 10/09/2019 21:55 EDT us Angelina Gonzales DP POINT OF CARE TEST ORDERABLES F inal Result Performing Organization Address [facility] Co de Phone Number [facility] [address] [place] [address] * (ABNORMAL) POCT GLUCOSE, INTERFACED (10/09/2019 17:16 EDT) Glucose, POC 111(H) 70 - 100 mg/dL 10/09/2019 17:21 EDT [facility] tubing supervisor ID [id number] 10/09/2019 17:21 EDT [facility] HN LAB POC COMMENT (GLUCOSE) Test Performed by Nursing Services 10/09/2019 17:21 EDT [facility] Blood CAPILLARY BLOOD / Unknown 10/09/2019 17:16 EDT 10/09/2019 17:21 EDT us Angelina Gonzales DPM POINT OF CARE TEST ORDERABLES F inal Result [facility] [address] [place] [address] * SURGICAL PATHOLOGY (10/09/2019 16:11 EDT) Final [...] to bone resection margin 10/14/2019 10:13 EDT [facility] Attestation There was significant resident/fellow involvement in the diagnostic evaluation of this case. By the signature below, the attending physician certifies that they have personally conducted a gross and/or microscopic examination of the described specimens and rendered or confirmed the above diagnosis. 10/14/2019 10:13 [facility] at 1013 Clinical History Acute osteomyelitis of right ankle or foot ([facility]) 10/14/2019 10:13 [facility] Gross Description A. Received in [...] underlying bone is without areas of softening. Mortgage Loan Counselor sections are submitted as follows: BLOCK DAVIS C1- skin and soft tissue margin en face, first metatarsal tissue C2- lateral soft tissue margin first metatarsal C3- first metatarsal margin en face, following acid decalcification C4- medial skin ulceration fourth metatarsal soft tissue margin Lauren Davidson 10/10/2019 14:36 10/14/2019 10:13 EDT [facility] Resident/Mickey w: Lb Gomes MD 10/14/2019 10:13 EDT [facility] Performing Lab [facility] 10:13 T [facility] Scanned Images 10/14/2019 10:13 EDT [facility] Tissue SPECIMEN FROM BONE / Unknown 10/09/2019 16:11 EDT 10/09/2019 21:35 EDT Tissue specimen (specimen) BONE STRUCTURE / Unknown 10/09/2019 16:12 EDT 10/09/2019 21:35 EDT Tissue specimen (specimen) AMPUTATED STRUCTURE / Unknown 10/09/2019 16:12 EDT 10/09/2019 21:35 EDT us Angelina Gonzales DPM PATHOLOGY ORDERABLES Final Resu lt [facility] [address] [place] [address] * (ABNORMAL) POCT GLUCOSE, INTERFACED (10/09/2019 14:41 EDT) Glucose, POC 107(H) 70 - 100 mg/dL 10/09/2019 14:42 EDT [facility] tubing supervisor ID [id number] 10/09/2019 14:42 EDT [facility] HN LAB POC COMMENT (GLUCOSE) Test Performed by Nursing Services 10/09/2019 14:42 EDT [facility] Blood CAPILLARY BLOOD / Unknown 10/09/2019 14:41 EDT 10/09/2019 14:41 EDT us Angelina Gonzales [facility] POINT OF CARE TEST ORDERABLES F inal Result Performing Organization Address City/[facility]/ZIP Co de Phone Number [facility] [address] [place] [address] * (ABNORMAL) POCT GLUCOSE, INTERFACED (10/09/2019 13:24 EDT) Glucose, POC 111(H) 70 - 100 mg/dL 10/09/2019 14:26 EDT [facility] tubing supervisor ID [id number] 10/09/2019 14:26 EDT [facility] HN LAB POC COMMENT (GLUCOSE) Test Performed by Nursing Services 10/09/2019 14:26 EDT [facility] Blood CAPILLARY BLOOD / Unknown 10/09/2019 13:24 EDT 10/09/2019 14:26 EDT Angelina Carol Christian [facility] POINT OF CARE TEST ORDERABLES F inal Result Performing Organization Address City/[facility]/ZIP Co de Phone Number [facility] [address] [place] [address] * (ABNORMAL) POCT GLUCOSE, INTERFACED (10/09/2019 9:29 EDT) Glucose, POC 163(H) 70 - 100 mg/dL 10/09/2019 9:30 EDT [facility] tubing supervisor ID [id number] 10/09/2019 9:30 EDT [facility] HN LAB POC COMMENT (GLUCOSE) Test Performed by Nursing Services 10/09/2019 9:30 EDT [facility] Blood CAPILLARY BLOOD / Unknown 10/09/2019 9:29 EDT 10/09/2019 9:30 EDT Angelina Medina Christian [facility] POINT OF CARE TEST ORDERABLES F inal Result Performing Organization Address City/[facility]/ZIP Co de Phone Number [facility] [address] [place] [address] * (ABNORMAL) POCT GLUCOSE, INTERFACED (10/09/2019 5:57 EDT) [facility] Glucose, POC 202(H) 70 - 100 mg/dL 10/09/2019 5:57 EDT [facility] tubing supervisor ID [id number] 10/09/2019 5:57 EDT [facility] HN LAB POC COMMENT (GLUCOSE) Test Performed by Nursing Services 10/09/2019 5:57 EDT [facility] Blood CAPILLARY BLOOD / Unknown 10/09/2019 5:57 EDT 10/09/2019 5:57 EDT Angelina Medina Christian [facility] POINT OF CARE TEST ORDERABLES F inal Result Performing Organization Address [facility] Co de Phone Number [facility] [address] [place] [address] * VANCOMYCIN TROUGH (10/09/2019 3:31 EDT) [facility] Vancomycin Trough 13.1 10.0 - 20.0 ug/mlL 10/09/2019 4:24 EDT [facility] Draw Type Not Given 10/09/2019 4:24 EDT [facility] Blood VENOUS BLOOD / Unknown Venipuncture / Unknown 10/09/2019 3:31 EDT 10/09/2019 3:47 EDT Virgilio Ramirez MD CHEMISTRY & BLOOD GAS OR DERABLES Final Result Performing Organization Address [facility]/ZIP Co de Phone Number [facility] [address] [place] [address] * (ABNORMAL) POCT GLUCOSE, INTERFACED (10/08/2019 21:16 EDT) [facility] Glucose, POC 278(H) 70 - 100 mg/dL 10/08/2019 21:17 EDT [facility] tubing supervisor ID [id number] 10/08/2019 21:17 EDT [facility] HN LAB POC COMMENT (GLUCOSE) Test Performed by Nursing Services 10/08/2019 21:17 EDT [facility] Blood CAPILLARY BLOOD / Unknown 10/08/2019 21:16 EDT 10/08/2019 21:17 EDT us Angelina Gonzales [facility] POINT OF CARE TEST ORDERABLES F inal Result Performing Organization Address City/[facility]/ZIP Co de Phone Number [facility] [address] [place] [address] * (ABNORMAL) POCT GLUCOSE, INTERFACED (10/08/2019 18:01 EDT) Glucose, POC 239(H) 70 - 100 mg/dL 10/08/2019 18:02 EDT [facility] tubing supervisor ID [id number] 10/08/2019 18:02 EDT [facility] HN LAB POC COMMENT (GLUCOSE) Test Performed by Nursing Services 10/08/2019 18:02 EDT [facility] Blood CAPILLARY BLOOD / Unknown 10/08/2019 18:01 EDT 10/08/2019 18:02 EDT us Angelina Gonzales [facility] POINT OF CARE TEST ORDERABLES F inal Result Performing Organization Address City/[facility]/ZIP Co de Phone Number [facility] [address] [place] [address] * (ABNORMAL) POCT GLUCOSE, INTERFACED (10/08/2019 12:46 EDT) Glucose, POC 242(H) 70 - 100 mg/dL 10/08/2019 12:47 EDT [facility] tubing supervisor ID [id number] 10/08/2019 12:47 EDT [facility] HN LAB POC COMMENT (GLUCOSE) Test Performed by Nursing Services 10/08/2019 12:47 EDT [facility] Blood CAPILLARY BLOOD / Unknown 10/08/2019 12:46 EDT 10/08/2019 12:47 EDT us Angelina Carol Gonzales DP POINT OF CARE TEST ORDERABLES F inal Result Performing Organization Address [facility] Co de Phone Number [facility] [address] [place] [address] * ECG REPORT - SCANNED (10/08/2019 8:47 EDT) 10/08/2019 8:47 EDT us Scan 2 [employer] PROCEDURE/MINOR SURGICAL OR DERABLES Final Result * (ABNORMAL) PROTIME (10/08/2019 8:26 EDT) I.N.R. 1.4(H) 0.9 - 1.1 Ratio 10/08/2019 8:49 EDT [facility] Pro Time 16.8(H) 10.3 - 13.4 secs 10/08/2019 8:49 EDT [facility] Blood VENOUS BLOOD / Unknown Venipuncture / Unknown 10/08/2019 8:26 EDT 10/08/2019 8:33 EDT Narrative [facility] - 10/08/2019 8:49 EDT Moderate Intensity Coumadin INR = 2.0-3.0 Adjustments in anticoagulant therapy dose should be based on the INR and NOT on the Protime. us Rainer Cavazos MD HEMATOLOGY & PF4 ORDERABLES Sobia l Result Performing Organization Address [facility] Co de Phone Number [facility] [address] [place] [address] * TYPE AND SCREEN (10/08/2019 8:26 EDT) ABO A 10/08/2019 9:13 EDT [facility] Rh Factor Positive 10/08/2019 9:13 EDT [facility] Antibody Screen Negative 10/08/2019 9:13 EDT [facility] Specimen Expires: 10/11/2019 @ 23:59 10/08/2019 9:13 EDT [facility] Blood VENOUS BLOOD / Unknown Venipuncture / Unknown 10/08/2019 8:26 EDT 10/08/2019 8:34 EDT Rainer Cavazos MD BLOOD BANK TESTS Edited Result - Final Performing Organization Address [facility] Co de Phone Number [facility] [address] [place] [address] * (ABNORMAL) POCT GLUCOSE, INTERFACED (10/08/2019 8:19 EDT) Glucose, POC 209(H) 70 - 100 mg/dL 10/08/2019 8:22 EDT [facility] tubing supervisor ID [id number] 10/08/2019 8:22 EDT [facility] HN LAB POC COMMENT (GLUCOSE) Test Performed by Nursing Services 10/08/2019 8:22 EDT [facility] Blood CAPILLARY BLOOD / Unknown 10/08/2019 8:19 EDT 10/08/2019 8:22 EDT us Angelina Gonzales DPM POINT OF CARE TEST ORDERABLES F inal Result Performing Organization Address [facility] de Phone Number [facility] [address] [place] [address] * (ABNORMAL) COMPLETE BLOOD COUNT (10/08/2019 6:25 EDT) WBC 7.35 4.00 - 10.40 K/cmm 10/08/2019 6:55 T [facility] RBC 3.98(L) 4.36 - 5.78 M/cmm 10/08/2019 6:55 [facility] Hemoglobin 12.1(L) 13.8 - 17.3 gm/dL 10/08/2019 6:55 T [facility] HCT 35.3(L) 39.5 - 50.2 % 10/08/2019 6:55 [facility] MCV 89 81 - 95 fl 10/08/2019 6:55 [facility] MCH 30.4 27.6 - 33.0 pg 10/08/2019 6:55 EDT [facility] MCHC 34.3 32.8 - 36.4 gm/dL 10/08/2019 6:55 EDT [facility] RDW-CV 12.8 <14.2 % 10/08/2019 6:55 EDT [facility] RDW-SD 41.8 <46.0 fl 10/08/2019 6:55 T [facility] PLT 311 141 - 377 K/cmm 10/08/2019 6:55 T [facility] MPV 9.4(L) 9.5 - 12.7 fl 10/08/2019 6:55 EDT [facility] Blood VENOUS BLOOD / Unknown Venipuncture / Unknown 10/08/2019 6:25 EDT 10/08/2019 6:48 EDT Sachin Castle MD HEMATOLOGY & PF4 ORDERABLES Final Result Performing Organization Address City/[facility] Co de Phone Number [facility] [address] [place] [address] * (ABNORMAL) ELECTROLYTES (10/08/2019 6:25 EDT) Sodium 134(L) 136 - 145 mEq/L 10/08/2019 7:21 T [facility] Potassium 3.1(L) 3.5 - 5.0 mEq/L 10/08/2019 7:21 [facility] Chloride 94(L) 96 - 110 mEq/L 10/08/2019 7:21 T [facility] CO2 Total 33(H) 22 - 32 mEq/L 10/08/2019 7:21 T [facility] Blood VENOUS BLOOD / Unknown Venipuncture / Unknown 10/08/2019 6:25 EDT 10/08/2019 6:48 EDT Sachin Castle MD CHEMISTRY & BLOOD GAS ORDER ELIU Final Result Performing Organization Address [facility]/ZIP Co de Phone Number [facility] [address] [place] [address] * (ABNORMAL) CREATININE (10/08/2019 6:25 EDT) Creatinine 0.59(L) 0.66 - 1.25 mg/dL 10/08/2019 7:21 EDT [facility] eGFR 112 >60 mL/min/1.7 3m2 10/08/2019 7:21 EDT [facility] Comment:eGFR calculated sarahi krishnan CKD-EPI equation for non- Americans. Multiply eGFR by 1.16 for patients. Blood VENOUS BLOOD / Unknown Venipuncture / Unknown 10/08/2019 6:25 EDT 10/08/2019 6:48 EDT Sachin Castle MD CHEMISTRY & BLOOD GAS ORDER ELIU Final Result Performing Organization Address City/[facility]/ZIP Co de Phone Number [facility] [address] [place] [address] * (ABNORMAL) BUN (10/08/2019 6:25 EDT) Pathologist [facility] BUN 6(L) 10 - 26 mg/dL 10/08/2019 7:21 EDT [facility] Blood VENOUS BLOOD / Unknown Venipuncture / Unknown 10/08/2019 6:25 EDT 10/08/2019 6:48 EDT Sachin Castle MD CHEMISTRY & BLOOD GAS ORDER ELIU Final Result Performing Organization Address City/[facility]/ZIP Co de Phone Number [facility] [address] [place] [address] * (ABNORMAL) POCT GLUCOSE, INTERFACED (10/07/2019 21:20 EDT) Glucose, POC 248(H) 70 - 100 mg/dL 10/07/2019 21:21 EDT [facility] tubing supervisor ID [id number] 10/07/2019 21:21 EDT [facility] HN LAB POC COMMENT (GLUCOSE) Test Performed by Nursing Services 10/07/2019 21:21 EDT [facility] Blood CAPILLARY BLOOD / Unknown 10/07/2019 21:20 EDT 10/07/2019 21:21 EDT us Angelina Medina Christian DPM POINT OF CARE TEST ORDERABLES F inal Result [facility] [address] [place] [address] * (ABNORMAL) POCT GLUCOSE, INTERFACED (10/07/2019 18:18 EDT) Glucose, POC 247(H) 70 - 100 mg/dL 10/07/2019 20:46 EDT [facility] tubing supervisor ID [id number] 10/07/2019 20:46 EDT [facility] HN LAB POC COMMENT (GLUCOSE) Test Performed by Nursing Services 10/07/2019 20:46 EDT [facility] Blood CAPILLARY BLOOD / Unknown 10/07/2019 18:18 EDT 10/07/2019 20:46 EDT Angelina M Christian DP POINT OF CARE TEST ORDERABLES F inal Result Performing Organization Address [facility] Co de Phone Number [facility] [address] [place] [address] * (ABNORMAL) POCT GLUCOSE, INTERFACED (10/07/2019 13:13 EDT) Glucose, POC 286(H) 70 - 100 mg/dL 10/07/2019 13:14 EDT [facility] tubing supervisor ID [id number] 10/07/2019 13:14 EDT [facility] HN LAB POC COMMENT (GLUCOSE) Test Performed by Nursing Services 10/07/2019 13:14 EDT [facility] Blood CAPILLARY BLOOD / Unknown 10/07/2019 13:13 EDT 10/07/2019 13:14 EDT Angelina Carol Christian DPM POINT OF CARE TEST ORDERABLES F inal Result [facility] [address] [place] [address] * XR FOOT RIGHT 3 OR MORE [...] 70 - 100 mg/dL 10/07/2019 9:39 EDT [facility] tubing supervisor ID [id number] 10/07/2019 9:39 EDT [facility] HN LAB POC COMMENT (GLUCOSE) Test Performed by Nursing Services 10/07/2019 9:39 EDT [facility] Blood CAPILLARY BLOOD / Unknown 10/07/2019 9:39 EDT 10/07/2019 9:39 EDT us Angelina Gonzales DPM POINT OF CARE TEST ORDERABLES F inal Result Performing Organization Address City/[facility]/ZIP Co de Phone Number [facility] [address] [place] [address] * (ABNORMAL) GLUCOSE, SERUM (10/07/2019 6:28 EDT) Glucose 203(H) 70 - 100 mg/dL 10/07/2019 7:15 EDT [facility] Blood VENOUS BLOOD / Unknown Venipuncture / Unknown 10/07/2019 6:28 EDT 10/07/2019 6:42 EDT Js Meza MD CHEMISTRY & BLOOD GAS ORDERABLES Final Result [facility] [address] [place] [address] * (ABNORMAL) COMPLETE BLOOD COUNT AND DIFFERENTIAL (10/07/2019 6:28 EDT) WBC 10.35 4.00 - 10.40 K/cmm 10/07/2019 6:49 EDT [facility] RBC 3.74(L) 4.36 - 5.78 M/cmm 10/07/2019 6:49 EDT [facility] Hemoglobin 11.3(L) 13.8 - 17.3 gm/dL 10/07/2019 6:49 [facility] HCT 33.4(L) 39.5 - 50.2 % 10/07/2019 6:49 [facility] MCV 89 81 - 95 fl 10/07/2019 6:49 [facility] MCH 30.2 27.6 - 33.0 pg 10/07/2019 6:49 [facility] MCHC 33.8 32.8 - 36.4 gm/dL 10/07/2019 6:49 [facility] RDW-CV 12.6 <14.2 % 10/07/2019 6:49 [facility] RDW-SD 41.6 <46.0 fl 10/07/2019 6:49 [facility] PLT 305 141 - 377 K/cmm 10/07/2019 6:49 [facility] MPV 9.5 9.5 - 12.7 fl 10/07/2019 6:49 [facility] % Neutrophils 76.9 % 10/07/2019 6:49 [facility] % Lymphocytes 15.1 % 10/07/2019 6:49 [facility] % Monocytes 4.6 % 10/07/2019 6:49 [facility] % Eosinophils 1.6 % 10/07/2019 6:49 [facility] % Basophils 0.4 % 10/07/2019 6:49 [facility] % Immature Grans 1.4 % 10/07/19 20 6:49 [facility] Absolute Neutrophils 7.96 2.20 - 8.85 K/cmm 10/07/2019 6:49 [facility] Absolute Lymphocytes 1.56 1.09 - 3.30 K/cmm 10/07/2019 6:49 [facility] Absolute Monocytes 0.48 0.10 - 0.80 K/cmm 10/07/2019 6:49 [facility] Absolute Eosinophils 0.17 0.03 - 0.61 K/cmm 10/07/2019 6:49 [facility] ABS Basophils 0.04 0.01 - 0.11 K/cmm 10/07/2019 6:49 EDT [facility] Absolute Immature Grans 0.14(H) 0.00 - 0.06 K/cmm 10/07/2019 6:49 EDT [facility] Type of Differential: Auto 10/07/2019 6:49 EDT [facility] Blood VENOUS BLOOD / Unknown Venipuncture / Unknown 10/07/2019 6:28 EDT 10/07/2019 6:42 EDT us Js Meza MD PACKAGES & DNA PROBE ORDERABLES Final Result Performing Organization Address City/[facility]/ZIP Co de Phone Number [facility] [address] [place] [address] * (ABNORMAL) ELECTROLYTES (10/07/2019 6:28 EDT) Sodium 131(L) 136 - 145 mEq/L 10/07/2019 7:15 EDT [facility] Potassium 3.2(L) 3.5 - 5.0 mEq/L 10/07/2019 7:15 T [facility] Chloride 94(L) 96 - 110 mEq/L 10/07/2019 7:15 T [facility] CO2 Total 29 22 - 32 mEq/L 10/07/2019 7:15 [facility] Blood VENOUS BLOOD / Unknown Venipuncture / Unknown 10/07/2019 6:28 EDT 10/07/2019 6:42 EDT us Js Meza MD CHEMISTRY & BLOOD GAS ORDERABLES Final Result [facility] [address] [place] [address] * (ABNORMAL) CREATININE (10/07/2019 6:28 EDT) Creatinine 0.53(L) 0.66 - 1.25 mg/dL 10/07/2019 7:15 T [facility] eGFR 117 >60 mL/min/1.7 3m2 10/07/2019 7:15 EDT [facility] Comment:eGFR calculated sarahi krishnan CKD-EPI equation for non- Americans. Multiply eGFR by 1.16 for patients. Blood VENOUS BLOOD / Unknown Venipuncture / Unknown 10/07/2019 6:28 EDT 10/07/2019 6:42 EDT us Js Meza MD CHEMISTRY & BLOOD GAS ORDERABLES Final Result Performing Organization Address City/[facility]/ZIP Co de Phone Number [facility] [address] [place] [address] * (ABNORMAL) BUN (10/07/2019 6:28 EDT) BUN 7(L) 10 - 26 mg/dL 10/07/2019 7:15 EDT [facility] Blood VENOUS BLOOD / Unknown Venipuncture / Unknown 10/07/2019 6:28 EDT 10/07/2019 6:42 EDT us Js Meza MD CHEMISTRY & BLOOD GAS ORDERABLES Final Result Performing Organization Address [facility] Co de Phone Number [facility] [address] [place] [address] * (ABNORMAL) POCT GLUCOSE, INTERFACED (10/06/2019 21:49 EDT) Glucose, POC 202(H) 70 - 100 mg/dL 10/06/2019 21:50 EDT [facility] tubing supervisor ID [id number] 10/06/2019 21:50 EDT [facility] HN LAB POC COMMENT (GLUCOSE) Test Performed by Nursing Services 10/06/2019 21:50 EDT [facility] Blood CAPILLARY BLOOD / Unknown 10/06/2019 21:49 EDT 10/06/2019 21:50 EDT us Angelina Gonzales DPM POINT OF CARE TEST ORDERABLES F inal Result Performing Organization Address City/[facility]/ZIP Co de Phone Number [facility] [address] [place] [address] * (ABNORMAL) POCT GLUCOSE, INTERFACED (10/06/2019 19:32 EDT) Glucose, POC 275(H) 70 - 100 mg/dL 10/06/2019 19:33 EDT [facility] tubing supervisor ID [id number] 10/06/2019 19:33 EDT [facility] HN LAB POC COMMENT (GLUCOSE) Test Performed by Nursing Services 10/06/2019 19:33 EDT [facility] Blood CAPILLARY BLOOD / Unknown 10/06/2019 19:32 EDT 10/06/2019 19:33 EDT us Angelina Gonzales [facility] POINT OF CARE TEST ORDERABLES F inal Result Performing Organization Address [facility]/ZIP Co de Phone Number [facility] [address] [place] [address] * (ABNORMAL) POCT GLUCOSE, INTERFACED (10/06/2019 18:47 EDT) Glucose, POC 275(H) 70 - 100 mg/dL 10/06/2019 18:48 EDT [facility] tubing supervisor ID [id number] 10/06/2019 18:48 EDT [facility] HN LAB POC COMMENT (GLUCOSE) Test Performed by Nursing Services 10/06/2019 18:48 EDT [facility] Blood CAPILLARY BLOOD / Unknown 10/06/2019 18:47 EDT 10/06/2019 18:48 EDT us Angelina Gonzales [facility] POINT OF CARE TEST ORDERABLES F inal Result Performing Organization Address City/[facility]/ZIP Co de Phone Number [facility] [address] [place] [address] * (ABNORMAL) VANCOMYCIN TROUGH (10/06/2019 15:30 EDT) Vancomycin Trough 9.9(L) 10.0 - 20.0 ug/mlL 10/06/2019 16:20 EDT [facility] Draw Type Not Given 10/06/2019 16:20 EDT [facility] Blood VENOUS BLOOD / Unknown Venipuncture / Unknown 10/06/2019 15:30 EDT 10/06/2019 15:46 EDT us Virgilio Ramirez MD CHEMISTRY & BLOOD GAS OR DERABLES Final Result [facility] [address] [place] [address] * (ABNORMAL) POCT GLUCOSE, INTERFACED (10/06/2019 14:03 EDT) Glucose, POC 260(H) 70 - 100 mg/dL 10/06/2019 14:14 EDT [facility] tubing supervisor ID [id number] 10/06/2019 14:14 EDT [facility] HN LAB POC COMMENT (GLUCOSE) Test Performed by Nursing Services 10/06/2019 14:14 EDT [facility] Blood CAPILLARY BLOOD / Unknown 10/06/2019 14:03 EDT 10/06/2019 14:14 EDT us Angelina Gonzales DPM POINT OF CARE TEST ORDERABLES F inal Result Performing Organization Address City/[facility]/ZIP Co de Phone Number [facility] [address] [place] [address] * (ABNORMAL) POCT GLUCOSE, INTERFACED (10/06/2019 9:46 EDT) Glucose, POC 180(H) 70 - 100 mg/dL 10/06/2019 9:47 EDT [facility] tubing supervisor ID [id number] 10/06/2019 9:47 EDT [facility] HN LAB POC COMMENT (GLUCOSE) Test Performed by Nursing Services 10/06/2019 9:47 EDT [facility] Blood CAPILLARY BLOOD / Unknown 10/06/2019 9:46 EDT 10/06/2019 9:46 EDT us Angelina Gonzales DPM POINT OF CARE TEST ORDERABLES F inal Result [facility] [address] [place] [address] * (ABNORMAL) HEMOGLOBIN A1C (10/06/2019 7:54 EDT) Hemoglobin A1c 15.8(H) <5.7 % 10/06/2019 15:34 EDT [facility] Comment: Glycemic Status References: [...] Avg Glucose 407 mg/dL 0 15:34 EDT [facility] Comment:The eAG represents t he A1c result expressed as average glucose in mg/dL. Blood VENOUS BLOOD / Unknown Venipuncture / Unknown 10/06/2019 7:54 EDT 10/06/2019 8:31 EDT us Virgilio Ramirez MD CHEMISTRY & BLOOD GAS OR DERABLES Final Result [facility] [address] [place] [address] * (ABNORMAL) COMPLETE BLOOD COUNT (10/06/2019 7:54 EDT) WBC 13.80(H) 4.00 - 10.40 K/cmm 10/06/2019 9:51 EDT [facility] RBC 3.74(L) 4.36 - 5.78 M/cmm 10/06/2019 9:51 EDT [facility] Hemoglobin 11.3(L) 13.8 - 17.3 gm/dL 10/06/2019 9:51 EDT [facility] HCT 32.7(L) 39.5 - 50.2 % 10/06/2019 9:51 EDT [facility] MCV 87 81 - 95 fl 10/06/2019 9:51 EDT [facility] MCH 30.2 27.6 - 33.0 pg 10/06/2019 9:51 EDT [facility] MCHC 34.6 32.8 - 36.4 gm/dL 10/06/2019 9:51 EDT [facility] RDW-CV 12.4 <14.2 % 10/06/2019 9:51 T [facility] RDW-SD 40.3 <46.0 fl 10/06/2019 9:51 EDT [facility] PLT 294 141 - 377 K/cmm 10/06/2019 9:51 [facility] MPV 9.9 9.5 - 12.7 fl 10/06/2019 9:51 EDT [facility] Blood VENOUS BLOOD / Unknown Venipuncture / Unknown 10/06/2019 7:54 EDT 10/06/2019 8:31 EDT Sachin Castle MD HEMATOLOGY & PF4 ORDERABLES Final Result Performing Organization Address [facility] Co de Phone Number [facility] [address] [place] [address] * (ABNORMAL) SCREENING GLUCOSE (10/06/2019 7:54 EDT) [facility] Glucose, Screening 201(H) 70 - 100 mg/dL 10/06/2019 9:13 EDT [facility] Comment:Elevated screening g lucose value greater than 180 mg/dl, please order follow up Hemoglobin A1C. Blood VENOUS BLOOD / Unknown Venipuncture / Unknown 10/06/2019 7:54 EDT 10/06/2019 8:31 EDT Sachin Castle MD CHEMISTRY & BLOOD GAS ORDER ELIU Final Result Performing Organization Address City/[facility]/ZIP Co de Phone Number [facility] [address] [id number] * (ABNORMAL) COMPLETE BLOOD COUNT AND DIFFERENTIAL (10/06/2019 7:54 EDT) [facility] Signature WBC 13.80(H) 4.00 - 10.40 K/cmm 10/06/2019 8:52 [facility] RBC 3.74(L) 4.36 - 5.78 M/cmm 10/06/2019 8:52 [facility] Hemoglobin 11.3(L) 13.8 - 17.3 gm/dL 10/06/2019 8:52 [facility] HCT 32.7(L) 39.5 - 50.2 % 10/06/2019 8:52 [facility] MCV 87 81 - 95 fl 10/06/2019 8:52 [facility] MCH 30.2 27.6 - 33.0 pg 10/06/2019 8:52 [facility] MCHC 34.6 32.8 - 36.4 gm/dL 10/06/2019 8:52 [facility] RDW-CV 12.4 <14.2 % 10/06/2019 8:52 [facility] RDW-SD 40.3 <46.0 fl 10/06/2019 8:52 [facility] PLT 294 141 - 377 K/cmm 10/06/2019 8:52 [facility] MPV 9.9 9.5 - 12.7 fl 10/06/2019 8:52 [facility] % Neutrophils 80.3 % 10/06/2019 8:52 [facility] % Lymphocytes 11.2 % 10/06/2019 8:52 [facility] % Monocytes 5.7 % 10/06/2019 8:52 [facility] % Eosinophils 0.9 % 10/06/2019 8:52 [facility] % Basophils 0.4 % 10/06/2019 8:52 [facility] % Immature Grans 1.5 % 10/06/19 20 8:52 [facility] Absolute Neutrophils 11.08(H) 2.20 - 8.85 K/cmm 10/06/2019 8:52 EDT [facility] Absolute Lymphocytes 1.54 1.09 - 3.30 K/cmm 10/06/2019 8:52 EDT [facility] Absolute Monocytes 0.79 0.10 - 0.80 K/cmm 10/06/2019 8:52 EDT [facility] Absolute Eosinophils 0.13 0.03 - 0.61 K/cmm 10/06/2019 8:52 EDT [facility] ABS Basophils 0.05 0.01 - 0.11 K/cmm 10/06/2019 8:52 EDT [facility] Absolute Immature Grans 0.21(H) 0.00 - 0.06 K/cmm 10/06/2019 8:52 EDT [facility] Type of Differential: Auto 10/06/2019 8:52 T [facility] Blood VENOUS BLOOD / Unknown Venipuncture / Unknown 10/06/2019 7:54 EDT 10/06/2019 8:31 EDT us Luke Seeker PACKAGES & DNA PROBE ORDERABLES Final Result Performing Organization Address City/State/[facility] Co de Phone Number [facility] [address] [place] [phone] * (ABNORMAL) ELECTROLYTES (10/06/2019 7:54 EDT) Sodium 131(L) 136 - 145 mEq/L 10/06/2019 8:57 EDT [facility] Potassium 3.0(L) 3.5 - 5.0 mEq/L 10/06/2019 8:57 EDT [facility] Chloride 94(L) 96 - 110 mEq/L 10/06/2019 8:57 EDT [facility] CO2 Total 30 22 - 32 mEq/L 10/06/2019 8:57 EDT [facility] Blood VENOUS BLOOD / Unknown Venipuncture / Unknown 10/06/2019 7:54 EDT 10/06/2019 8:31 EDT us Js Meza MD CHEMISTRY & BLOOD GAS ORDERABLES Final Result [facility] [address] [place] [address] * (ABNORMAL) CREATININE (10/06/2019 7:54 EDT) Creatinine 0.51(L) 0.66 - 1.25 mg/dL 10/06/2019 8:57 EDT [facility] eGFR 119 >60 mL/min/1.7 3m2 10/06/2019 8:57 EDT [facility] Comment:eGFR calculated sarahi krishnan CKD-EPI equation for non- Americans. Multiply eGFR by 1.16 for patients. Blood VENOUS BLOOD / Unknown Venipuncture / Unknown 10/06/2019 7:54 EDT 10/06/2019 8:31 EDT us Js Meza MD CHEMISTRY & BLOOD GAS ORDERABLES Final Result [facility] [address] [place] [address] * (ABNORMAL) BUN (10/06/2019 7:54 EDT) [facility] BUN 6(L) 10 - 26 mg/dL 10/06/2019 8:57 EDT [facility] Blood VENOUS BLOOD / Unknown Venipuncture / Unknown 10/06/2019 7:54 EDT 10/06/2019 8:31 EDT us Js Meza MD CHEMISTRY & BLOOD GAS ORDERABLES Final Result [facility] [address] [place] [address] * (ABNORMAL) POCT GLUCOSE, INTERFACED (10/05/2019 22:07 EDT) Glucose, POC 159(H) 70 - 100 mg/dL 10/05/2019 22:07 EDT [facility] tubing supervisor ID [id number] 10/05/2019 22:07 EDT [facility] HN LAB POC COMMENT (GLUCOSE) Test Performed by Nursing Services 10/05/2019 22:07 EDT [facility] Blood CAPILLARY BLOOD / Unknown 10/05/2019 22:07 EDT 10/05/2019 22:07 EDT Angelina M Christian [facility] POINT OF CARE TEST ORDERABLES F inal Result Performing Organization Address [facility]/ZIP Co de Phone Number [facility] [address] [place] [address] * (ABNORMAL) POCT GLUCOSE, INTERFACED (10/05/2019 19:11 EDT) Glucose, POC 211(H) 70 - 100 mg/dL 10/05/2019 19:12 EDT [facility] tubing supervisor ID [id number] 10/05/2019 19:12 EDT [facility] HN LAB POC COMMENT (GLUCOSE) Test Performed by Nursing Services 10/05/2019 19:12 EDT [facility] Blood CAPILLARY BLOOD / Unknown 10/05/2019 19:11 EDT 10/05/2019 19:12 EDT us Angelina Gonzales [facility] POINT OF CARE TEST ORDERABLES F inal Result Performing Organization Address [facility] Co de Phone Number [facility] [address] [place] [address] * (ABNORMAL) ANAEROBE CULTURE/SMEAR(INC. AEROBES), OTHER (10/05/2019 13:36 EDT) Organism ID Moderate Streptococcus anginosus group(A) 10/10/2019 14:01 EDT [facility] Comment: Penicillin and ampicillin are drugs of choice for treatment of beta hemolytic streptococcal infections. [place] morphology consistent with other culture from same site/ source collected on the same day. Organism ID Enterococcus avium(A) 10/10/2019 14:01 EDT [facility] Comment:[place] morphology co nsistent with other culture from same site/ source collected on the same day. Organism ID Few Escherichia coli(A) 10/10/2019 14:01 EDT [facility] Comment:[place] morphology co nsistent with other culture from same site/ source collected on the same day. Organism ID Few Staphylococcus aureus(A) 10/10/2019 14:01 EDT [facility] Comment: Susceptible to nafcillin, cephalosporins and other beta lactam antibiotics (mecA gene product absent). [place] morphology consistent with other culture from same site/ source collected on the same day. Organism ID Moderate aerobic Gram positive bacilli(A) 10/10/2019 14:01 EDT [facility] Organism ID Few Alcaligenes faecalis(A) 10/10/2019 14:01 EDT [facility] Comment:[place] morphology co nsistent with other culture from same site/ source collected on the same day. Organism ID Heavy Mixed anaerobic growth, including Bacteroides fragilis group. [place] morphology consistent with other culture from same site/ source collected on the same day. (A) 10/10/2019 14:01 EDT [facility] Organism ID Heavy Streptococcus intermedius(A) 10/10/2019 14:01 EDT [facility] Comment:[place] morphology co nsistent with other culture from same site/ source collected on the same day. Smear Many Neutrophils Present(A) 10/10/2019 14:01 EDT [facility] Smear Many Mixed gram positive and gram negative organisms(A) 10/10/2019 14:01 EDT [facility] Tissue SOFT TISSUE / Unknown 10/05/2019 13:36 EDT 10/05/2019 14:26 EDT Virgilio Ramirez MD MICROBIOLOGY - GENERAL O RDERABLES Final Result [facility] [address] [place] [address] * (ABNORMAL) ANAEROBE CULTURE/SMEAR(INC. AEROBES), OTHER (10/05/2019 13:35 EDT) Organism ID Moderate Streptococcus anginosus group(A) 0 13:54 EDT [facility] Comment: Penicillin and ampicillin are drugs of choice for treatment of beta hemolytic streptococcal infections. [place] morphology consistent with other culture from same site/ source collected on the same day. Organism ID Few Staphylococcus aureus(A) 0 13:54 EDT [facility] Comment: Susceptible to nafcillin, cephalosporins and other beta lactam antibiotics (mecA gene product absent). [place] morphology consistent with other culture from same site/ source collected on the same day. Organism ID Rare Staphylococcus simulans(A) VITEK SUSCEPTIBILITY 0 13:54 EDT [facility] Organism ID Rare Alcaligenes faecalis(A) 0 13:54 EDT [facility] Comment:[place] morphology co nsistent with other culture from same site/ source collected on the same day. Organism ID Heavy Mixed anaerobic growth, including Bacteroides fragilis group. [place] morphology consistent with other culture from same site/ source collected on the same day. (A) 0 13:54 EDT [facility] Organism ID Heavy Streptococcus intermedius(A) 0 13:54 EDT [facility] Comment:[place] morphology co nsistent with other culture from same site/ source collected on the same day. Organism ID Few Enterococcus avium(A) 0 13:54 EDT [facility] Comment:[place] morphology co nsistent with other culture from same site/ source collected on the same day. Smear Moderate Neutrophils Present(A) 0 13:54 EDT [facility] Smear Moderate Mixed gram positive and gram negative organisms(A) 0 13:54 EDT [facility] Tissue SPECIMEN FROM BONE [...] simulans Vancomycin VITEK SUSCEPTIBILITY <=0.5 ug/mL: Susceptible us Virgilio Ramirez MD MICROBIOLOGY - GENERAL O RDERABLES Final Result [facility] [address] [place] [address] * (ABNORMAL) ANAEROBE CULTURE/SMEAR(INC. AEROBES), OTHER (10/05/2019 13:34 EDT) Organism ID Moderate Streptococcus anginosus group(A) 0 13:42 EDT [facility] Comment:Penicillin and ampic illin are drugs of choice for treatment of beta hemolytic streptococcal infections. Organism ID Few Enterococcus avium(A) VITEK SUSCEPTIBILITY 0 13:42 EDT [facility] Comment:For ampicillin susce ptible enterococci, the preferred treatment is ampicillin (with an aminoglycoside for serious infections). Organism ID Few Escherichia coli(A) VITEK SUSCEPTIBILITY 0 13:42 EDT [facility] Organism ID Few Staphylococcus aureus(A) VITEK SUSCEPTIBILITY 0 13:42 EDT [facility] Comment:Susceptible to nafci llin, cephalosporins and other beta lactam antibiotics (mecA gene product absent). Organism ID Few Alcaligenes faecalis(A) 0 13:42 EDT [facility] Organism ID Moderate Mixed anaerobic growth, including Bacteroides fragilis group.(A) 0 13:42 EDT [facility] Smear Many Neutrophils Present(A) 0 13:42 EDT [facility] Smear Moderate Mixed gram positive and gram negative organisms(A) 0 13:42 EDT [facility] Tissue SPECIMEN FROM BONE [...] MICROBIOLOGY - GENERAL O RDERABLES Final Result [facility] [address] [place] [address] * (ABNORMAL) POCT GLUCOSE, INTERFACED (10/05/2019 11:03 EDT) Glucose, POC 130(H) 70 - 100 mg/dL 10/05/2019 11:04 EDT [facility] tubing supervisor ID [id number] 10/05/2019 11:04 EDT [facility] HN LAB POC COMMENT (GLUCOSE) Test Performed by Nursing Services 10/05/2019 11:04 EDT [facility] Blood CAPILLARY BLOOD / Unknown 10/05/2019 11:03 EDT 10/05/2019 11:04 EDT us Js Meza MD POINT OF CARE TEST ORDERABLES Fi nal Result [facility] [address] [place] [address] * (ABNORMAL) GLUCOSE, SERUM (10/05/2019 7:22 EDT) Glucose 150(H) 70 - 100 mg/dL 10/05/2019 8:26 EDT [facility] Blood VENOUS BLOOD / Unknown Venipuncture / Unknown 10/05/2019 7:22 EDT 10/05/2019 7:53 EDT us Js Meza MD CHEMISTRY & BLOOD GAS ORDERABLES Final Result [facility] [address] [place] [address] * (ABNORMAL) COMPLETE BLOOD COUNT AND DIFFERENTIAL (10/05/2019 7:22 EDT) WBC 14.09(H) 4.00 - 10.40 K/cmm 10/05/2019 8:08 EDT [facility] RBC 4.00(L) 4.36 - 5.78 M/cmm 10/05/2019 8:08 EDT [facility] Hemoglobin 12.2(L) 13.8 - 17.3 gm/dL 10/05/2019 8:08 EDT [facility] HCT 34.6(L) 39.5 - 50.2 % 10/05/2019 8:08 [facility] MCV 87 81 - 95 fl 10/05/2019 8:08 [facility] MCH 30.5 27.6 - 33.0 pg 10/05/2019 8:08 [facility] MCHC 35.3 32.8 - 36.4 gm/dL 10/05/2019 8:08 [facility] RDW-CV 12.2 <14.2 % 10/05/2019 8:08 [facility] RDW-SD 38.9 <46.0 fl 10/05/2019 8:08 [facility] PLT 295 141 - 377 K/cmm 10/05/2019 8:08 [facility] MPV 10.2 9.5 - 12.7 fl 10/05/2019 8:08 [facility] % Neutrophils 81.1 % 10/05/2019 8:08 [facility] % Lymphocytes 11.5 % 10/05/2019 8:08 [facility] % Monocytes 5.0 % 10/05/2019 8:08 [facility] % Eosinophils 0.9 % 10/05/2019 8:08 [facility] % Basophils 0.4 % 10/05/2019 8:08 [facility] % Immature Grans 1.1 % 10/05/19 20 8:08 [facility] Absolute Neutrophils 11.43(H) 2.20 - 8.85 K/cmm 10/05/2019 8:08 [facility] Absolute Lymphocytes 1.62 1.09 - 3.30 K/cmm 10/05/2019 8:08 [facility] Absolute Monocytes 0.71 0.10 - 0.80 K/cmm 10/05/2019 8:08 [facility] Absolute Eosinophils 0.13 0.03 - 0.61 K/cmm 10/05/2019 8:08 [facility] ABS Basophils 0.05 0.01 - 0.11 K/cmm 10/05/2019 8:08 EDT [facility] Absolute Immature Grans 0.15(H) 0.00 - 0.06 K/cmm 10/05/2019 8:08 EDT [facility] Type of Differential: Auto 10/05/2019 8:08 T [facility] Blood VENOUS BLOOD / Unknown Venipuncture / Unknown 10/05/2019 7:22 EDT 10/05/2019 7:53 EDT Js Meza MD PACKAGES & DNA PROBE ORDERABLES Final Result [facility] [address] [place] [address] * (ABNORMAL) ELECTROLYTES (10/05/2019 7:22 EDT) Sodium 133(L) 136 - 145 mEq/L 10/05/2019 8:35 EDT [facility] Potassium 3.7 3.5 - 5.0 mEq/L 10/05/2019 8:35 EDT [facility] Comment:Slight hemolysis terry ntified, interpret with caution as hemolysis will elevate potassium result. Chloride 96 96 - 110 mEq/L 10/05/2019 8:35 T [facility] CO2 Total 27 22 - 32 mEq/L 10/05/2019 8:35 EDT [facility] Blood VENOUS BLOOD / Unknown Venipuncture / Unknown 10/05/2019 7:22 EDT 10/05/2019 7:53 EDT Js Meza MD CHEMISTRY & BLOOD GAS ORDERABLES Final Result [facility] [address] [place] [address] * (ABNORMAL) CREATININE (10/05/2019 7:22 EDT) Creatinine 0.50(L) 0.66 - 1.25 mg/dL 10/05/2019 8:26 EDT [facility] eGFR 120 >60 mL/min/1.7 3m2 10/05/2019 8:26 EDT [facility] Comment:eGFR calculated sarahi krishnan CKD-EPI equation for non- Americans. Multiply eGFR by 1.16 for patients. Blood VENOUS BLOOD / Unknown Venipuncture / Unknown 10/05/2019 7:22 EDT 10/05/2019 7:53 EDT us Js Meza MD CHEMISTRY & BLOOD GAS ORDERABLES Final Result Performing Organization Address City/[facility] Co de Phone Number [facility] [address] [place] [address] * BUN (10/05/2019 7:22 EDT) BUN 12 10 - 26 mg/dL 10/05/2019 8:35 EDT [facility] Comment: Slight hemolysis identified, interpret with caution as results may be affected due to hemolysis. Blood VENOUS BLOOD / Unknown Venipuncture / Unknown 10/05/2019 7:22 EDT 10/05/2019 7:53 EDT us Js Meza MD CHEMISTRY & BLOOD GAS ORDERABLES Final Result Performing Organization Address [facility] de Phone Number [facility] [address] [place] [phone] * (ABNORMAL) POCT GLUCOSE, INTERFACED (10/05/2019 5:14 EDT) Glucose, POC 196(H) 70 - 100 mg/dL 10/05/2019 6:45 EDT [facility] tubing supervisor ID [id number] 10/05/2019 6:45 EDT [facility] HN LAB POC COMMENT (GLUCOSE) Test Performed by Nursing Services 10/05/2019 6:45 EDT [facility] Blood CAPILLARY BLOOD / Unknown 10/05/2019 5:14 EDT 10/05/2019 6:45 EDT us Js Meza MD POINT OF CARE TEST ORDERABLES Fi nal Result Performing Organization Address [facility] Co de Phone Number [facility] [address] [place] [address] * (ABNORMAL) POCT GLUCOSE, INTERFACED (10/05/2019 1:45 EDT) Glucose, POC 164(H) 70 - 100 mg/dL 10/05/2019 3:31 EDT [facility] tubing supervisor ID [id number] 10/05/2019 3:31 EDT [facility] HN LAB POC COMMENT (GLUCOSE) Test Performed by Nursing Services 10/05/2019 3:31 EDT [facility] Blood CAPILLARY BLOOD / Unknown 10/05/2019 1:45 EDT 10/05/2019 3:31 EDT us Sachin Castle MD POINT OF CARE TEST ORDERABL ES Final Result [facility] [address] [place] [address] * (ABNORMAL) POCT GLUCOSE, INTERFACED (10/04/2019 23:42 EDT) Glucose, POC 173(H) 70 - 100 mg/dL 10/04/2019 23:44 EDT [facility] tubing supervisor ID [id number] 10/04/2019 23:44 EDT [facility] HN LAB POC COMMENT (GLUCOSE) Test Performed by Nursing Services 10/04/2019 23:44 EDT [facility] Blood CAPILLARY BLOOD / Unknown 10/04/2019 23:42 EDT 10/04/2019 23:43 EDT us Virgilio Ramirez MD POINT OF CARE TEST ORDER ELIU Final Result [facility] [address] [place] [address] * (ABNORMAL) POCT GLUCOSE, INTERFACED (10/04/2019 22:05 EDT) Glucose, POC 203(H) 70 - 100 mg/dL 10/04/2019 22:06 EDT [facility] tubing supervisor ID [id number] 10/04/2019 22:06 EDT [facility] HN LAB POC COMMENT (GLUCOSE) Test Performed by Nursing Services 10/04/2019 22:06 EDT [facility] Blood CAPILLARY BLOOD / Unknown 10/04/2019 22:05 EDT 10/04/2019 22:06 EDT Sachin Castle MD POINT OF CARE TEST ORDERABL ES Final Result Performing Organization Address [facility]/ZIP Co de Phone Number [facility] [address] [place] [address] * (ABNORMAL) POCT GLUCOSE, INTERFACED (10/04/2019 20:07 EDT) Glucose, POC 257(H) 70 - 100 mg/dL 10/04/2019 20:12 EDT [facility] tubing supervisor ID [id number] 10/04/2019 20:12 EDT [facility] HN LAB POC COMMENT (GLUCOSE) Test Performed by Nursing Services 10/04/2019 20:12 EDT [facility] Blood CAPILLARY BLOOD / Unknown 10/04/2019 20:07 EDT 10/04/2019 20:11 EDT Js Meza MD POINT OF CARE TEST ORDERABLES Fi nal Result Performing Organization Address [facility] de Phone Number [facility] [address] [place] [phone] * (ABNORMAL) BACTERIAL CULTURE - FOR [facility] MICRO LAB USE ONLY (10/04/2019 17:44 EDT) Organism ID Moderate Staphylococcus aureus(A) VITEK SUSCEPTIBILITY 0 12:23 EDT [facility] Comment:Susceptible to nafci llin, cephalosporins and other beta lactam antibiotics (mecA gene product absent). Swab ENTIRE NARIS / Unknown Swab / Unknown 10/04/2019 17:44 EDT 10/04/2019 21:58 EDT Virgilio Ramirez MD MICROBIOLOGY - GENERAL O RDERABLES Final Result [facility] [address] [place] [address] * (ABNORMAL) POCT GLUCOSE, INTERFACED (10/04/2019 17:28 EDT) Pathologist [facility] Glucose, POC 309(H) 70 - 100 mg/dL 10/04/2019 17:30 EDT [facility] tubing supervisor ID [id number] 10/04/2019 17:30 EDT [facility] HN LAB POC COMMENT (GLUCOSE) Test Performed by Nursing Services 10/04/2019 17:30 EDT [facility] Blood CAPILLARY BLOOD / Unknown 10/04/2019 17:28 EDT 10/04/2019 17:30 EDT us Js Mzea MD POINT OF CARE TEST ORDERABLES Fi nal Result Performing Organization Address [facility]/ZIP Co de Phone Number [facility] [address] [place] [address] * PTT (10/04/2019 14:31 EDT) [facility] PTT 28 26 - 37 secs 10/04/2019 15:12 EDT [facility] Blood VENOUS BLOOD / Unknown Venipuncture / Unknown 10/04/2019 14:31 EDT 10/04/2019 14:36 EDT us Js Meza MD HEMATOLOGY & PF4 ORDERABLES Sobia l Result Performing Organization Address City/[facility]/ZIP Co de Phone Number [facility] [address] [place] [address] * (ABNORMAL) VITAMIN D (25,OH) (10/04/2019 13:02 EDT) [facility] 25OH Vitamin D Tot 13.1(L) 30.0 - 100.0 ng/mL 10/06/2019 11:51 EDT [facility] Comment: Vitamin D 25,OH Interpretive Ranges: Deficiency: ??<10.0 ng/mL Insufficiency: ??10.0 - 30.0 ng/mL Sufficiency: ??30.0 - 100.0 ng/mL Toxicity: ??>100.0 ng/mL Blood VENOUS BLOOD / Unknown Venipuncture / Unknown 10/04/2019 13:02 EDT 10/04/2019 13:49 EDT us Js Meza MD CHEMISTRY & BLOOD GAS ORDERABLES Final Result [facility] [address] [place] [address] * CALCIUM (10/04/2019 13:02 EDT) Calcium 8.7 8.5 - 10.5 mg/dL 10/04/2019 14:17 EDT [facility] Calculated Calcium 9.5 8.5 - 10.5 mg/dL 10/04/2019 14:17 EDT [facility] Blood VENOUS BLOOD / Unknown Venipuncture / Unknown 10/04/2019 13:02 EDT 10/04/2019 13:49 EDT us Js Meza MD CHEMISTRY & BLOOD GAS ORDERABLES Final Result Performing Organization Address City/[facility]/ZIP Co de Phone Number [facility] [address] [place] [address] * ALKALINE PHOSPHATASE (10/04/2019 13:02 EDT) Alkaline Phosphatase 115 38 - 126 U/L 10/04/2019 14:17 EDT [facility] Blood VENOUS BLOOD / Unknown Venipuncture / Unknown 10/04/2019 13:02 EDT 10/04/2019 13:49 EDT us Js Meza MD CHEMISTRY & BLOOD GAS ORDERABLES Final Result Performing Organization Address City/[facility]/ZIP Co de Phone Number [facility] [address] [place] [address] * (ABNORMAL) PREALBUMIN (10/04/2019 13:02 EDT) Prealbumin 6(L) 20 - 40 mg/dL 10/06/2019 9:34 EDT [facility] Blood VENOUS BLOOD / Unknown Venipuncture / Unknown 10/04/2019 13:02 EDT 10/04/2019 13:49 EDT us Js Meza MD CHEMISTRY & BLOOD GAS ORDERABLES Final Result [facility] [address] [place] [address] * PHOSPHORUS (10/04/2019 13:02 EDT) Phosphorus 3.8 2.5 - 4.5 mg/dL 10/04/2019 14:17 EDT [facility] Blood VENOUS BLOOD / Unknown Venipuncture / Unknown 10/04/2019 13:02 EDT 10/04/2019 13:49 EDT us Js Meza MD CHEMISTRY & BLOOD GAS ORDERABLES Final Result Performing Organization Address City/[facility]/ZIP Co de Phone Number [facility] [address] [place] [address] * MAGNESIUM (10/04/2019 13:02 EDT) Magnesium 2.0 1.7 - 2.8 mg/dL 10/04/2019 14:17 EDT [facility] Blood VENOUS BLOOD / Unknown Venipuncture / Unknown 10/04/2019 13:02 EDT 10/04/2019 13:49 EDT us Js Meza MD CHEMISTRY & BLOOD GAS ORDERABLES Final Result Performing Organization Address City/[facility]/ZIP Co de Phone Number [facility] [address] [place] [address] * (ABNORMAL) ALBUMIN (10/04/2019 13:02 EDT) Albumin 3.0(L) 3.4 - 4.9 g/dL 10/04/2019 14:17 EDT [facility] Blood VENOUS BLOOD / Unknown Venipuncture / Unknown 10/04/2019 13:02 EDT 10/04/2019 13:49 EDT us Js Meza MD CHEMISTRY & BLOOD GAS ORDERABLES Final Result Performing Organization Address [facility] Co de Phone Number [facility] [address] [place] [address] * (ABNORMAL) HEMOGLOBIN A1C (10/04/2019 13:02 EDT) Hemoglobin A1c 15.9(H) <5.7 % 10/06/2019 9:09 EDT [facility] Comment: Glycemic Status References: [...] Avg Glucose 410 mg/dL 0 9:09 EDT [facility] Comment:The eAG represents t he A1c result expressed as average glucose in mg/dL. Blood VENOUS BLOOD / Unknown Venipuncture / Unknown 10/04/2019 13:02 EDT 10/04/2019 13:49 EDT us Js Meza MD CHEMISTRY & BLOOD GAS ORDERABLES Final Result Performing Organization Address City/[facility]/ZIP Co de Phone Number [facility] [address] [place] [address] * TYPE AND SCREEN (10/04/2019 13:01 EDT) ABO A 10/04/2019 14:16 EDT [facility] Rh Factor Positive 10/04/2019 14:16 EDT [facility] Antibody Screen Negative 10/04/2019 14:16 EDT [facility] Specimen Expires: 10/07/2019 @ 23:59 10/04/2019 14:16 EDT [facility] Blood VENOUS BLOOD / Unknown Venipuncture / Unknown 10/04/2019 13:01 EDT 10/04/2019 13:33 EDT us Js Meaz MD BLOOD BANK TESTS Edited Result - Final [facility] [address] [facility] [place] [address] * EKG 12-LEAD (10/04/2019 11:58 EDT) 10/04/2019 11:5 8 EDT Narrative [facility] - 10/08/2019 8:40 EDT ?The Emergency ? Test Date: ?2019-10-04 Pat Name: ? JEFF NARVAEZ ?Department: ?? ED ? Room: ? GT31 Gender: ? Male ? Cost Controller: ?? [id number] : ?1960 ? Requested By: JAMI RUANO Order Number: [id number] ? Reading MD: ?? BAKARI MORALES MD ? Measurements Intervals ?Argyle ? Rate: ? 93 ? P: ?26 [...] Note Bakari Morales MD - 10/08/2019 The Emergency Test Date: 2019-10-04 Pat Name: JEFF NARVAEZ Department: ED Room: [facility] Gender: Male Cost Controller: [id number] : 1960 Requested By: JAMI Corley Number: [id number] Reading MD: BAKARI MORALES MD Measurements Intervals [place]yle Rate: 93 P: 26 VA: 125 QRS: 6 QRSD: 106 T: 17 QT: 390 QTc: 487 Interpretive Statements SINUS RHYTHM No previous ECG available for comparison I reviewed the tracing and have either agreed or edited the findings inthis report. Electronically Signed On 10-08-2019 8:40:03 EDT by BAKARI HALL. us Js Meza MD CARDIAC ECG ORDERABLES Final Res ult [facility] * XR CHEST 2 VIEWS [...] with the findings. us Js Meza MD [facility] MRI ORDERABLES Final Result * (ABNORMAL) POCT GLUCOSE, INTERFACED (10/04/2019 9:40 EDT) Glucose, POC 269(H) 70 - 100 mg/dL 10/04/2019 9:41 EDT [facility] tubing supervisor ID [id number] 10/04/2019 9:41 EDT [facility] HN LAB POC COMMENT (GLUCOSE) Test Performed by Nursing Services 10/04/2019 9:41 EDT [facility] Blood CAPILLARY BLOOD / Unknown 10/04/2019 9:40 EDT 10/04/2019 9:41 EDT us Makeda Padron MD POINT OF CARE TEST ORDERAB LES Final Result [facility] [address] [place] [id number] * XR TIBIA FIBULA RIGHT 2 VIEWS [...] andagree with the findings. us Luke Seeker IMG DIAGNOSTIC IMAGING ORDERABLE S Final Result * (ABNORMAL) ANAEROBE CULTURE/SMEAR(INC. AEROBES), OTHER (10/04/2019 2:22 EDT) Organism ID Heavy mixed aerobic and anaerobic growth, including Bacteroides fragilis group(A) 10/09/2019 11:58 EDT [facility] Smear Many Neutrophils Present(A) 10/09/2019 11:58 EDT [facility] Smear Many Mixed gram positive and gram negative organisms(A) 10/09/2019 11:58 EDT [facility] Tissue ENTIRE FOOT / Unknown Collection, Other / Unknown 10/04/2019 2:22 EDT 10/04/2019 7:29 EDT Makeda Padron MD MICROBIOLOGY - GENERAL ORD ERABLES Final Result Performing Organization Address [facility]/ZIP Co de Phone Number [facility] [address] [place] [address] * COVID-19 TEST [facility] PCR (10/03/2019 22:56 EDT) Swab ENTIRE NASOPHARYNX / Unknown Swab / Unknown 10/03/2019 22:56 EDT 10/03/2019 23:15 EDT Makeda Padron MD MICROBIOLOGY - GENERAL ORD ERABLES Final Result Performing Organization Address [facility] Co de Phone Number [facility] [address] [place] [address] * COVID-19 TESTING (10/03/2019 22:56 EDT) COVID-19 rt-PCR Result Negative Negative 10/04/2019 2:19 EDT [facility] Comment: This test has [...] history, and epidemiological information. Performed on the [employer]ine[employer] Fusion instrument Performing Lab Cinebar [facility] 10/04/2019 2:19 EDT [facility] Swab ENTIRE NASOPHARYNX / Unknown Swab / Unknown 10/03/2019 22:56 EDT 10/03/2019 23:15 EDT us Makeda Padron MD MICROBIOLOGY - GENERAL ORD ERABLES Final Result [facility] [address] [place] [address] * XR FOOT RIGHT 3 OR MORE [...] is interval amputation of the mid and [id number] toe. These findings were discussed with MAKEDA PADRON by Dr. Ribeiro at 10/03/2019 11:15 PM. I have personally reviewed the images and the above interpretation andagree with the findings. us Makeda Padron MD IMG DIAGNOSTIC IMAGING ORD ERABLES Final Result * BACTERIAL CULTURE, BLOOD (10/03/2019 22:40 EDT) Organism ID No Growth at 5 days 10/08/2019 23:00 EDT [facility] Blood VENOUS BLOOD / Unknown Blood Culture / Unknown 10/03/2019 22:40 EDT 10/03/2019 22:53 EDT us Makeda Padron MD MICROBIOLOGY - GENERAL ORD ERABLES Final Result [facility] [address] [place] [address] * (ABNORMAL) POCT URINE DIPSTICK, CLINITEK (10/03/2019 22:38 EDT) Color, UA Yellow Yellow 10/03/2019 22:45 EDT [facility] Clarity, UA Clear Clear 10/03/2019 22:45 EDT [facility] Glucose, UA 2+(A) Negative mg/dL 10/03/2019 22:45 EDT [facility] Bilirubin, UA 1+(A) Negative 10/03/2019 22:45 EDT [facility] Ketones, UA 1+(A) Negative mg/dL 10/03/2019 22:45 [facility] Specific [place], Urine 1.015 1.001 - 1.035 10/03/2019 22:45 EDT [facility] Blood, UA Negative Negative 10/03/2019 22:45 EDT [facility] pH, UA 6.0 <=8 10/03/2019 22:45 EDT [facility] Protein, UA 1+(A) Negative mg/dL 10/03/2019 22:45 EDT [facility] Urobilinogen, UA 0.2 0.2 - 1.0 EU/dL 10/03/2019 22:45 EDT [facility] Nitrite, UA Negative Negative 10/03/2019 22:45 EDT [facility] Leuk Esterase Negative Negative 10/03/2019 22:45 EDT [facility] tubing supervisor ID [id number] 10/03/2019 22:45 EDT [facility] HN LAB COMMENT (CLINITEK, UR) Test performed at Emergency Department 10/03/2019 22:45 EDT [facility] Urine URINE SPECIMEN OBTAINED BY CLEAN CATCH PROCEDURE / Unknown 10/03/2019 22:38 EDT 10/03/2019 22:45 EDT us Makeda Padron MD POINT OF CARE TEST ORDERAB LES Final Result Performing Organization Address City/[facility]/ZIP Co de Phone Number [facility] [address] [place] [address] * POCT CSN BARCODE URINE DIPSTICK (10/03/2019 22:26 EDT) Hold Hold 10/03/2019 23:31 EDT [facility] Urine URINE SPECIMEN OBTAINED BY CLEAN CATCH PROCEDURE / Unknown Urine Collect / Unknown 10/03/2019 22:26 EDT 10/03/2019 22:26 EDT us Makeda Padron MD LAB INFO SERVICE AND SUPPO RT & PHONE RESULT Final Result [facility] [address] [place] [address] * (ABNORMAL) PROTIME (10/03/2019 22:25 EDT) I.N.R. 1.3(H) 0.9 - 1.1 Ratio 10/04/2019 12:18 EDT [facility] Pro Time 14.6(H) 10.3 - 13.4 secs 10/04/2019 12:18 EDT [facility] Blood VENOUS BLOOD / Unknown Venipuncture / Unknown 10/03/2019 22:25 EDT 10/03/2019 22:36 EDT Narrative [facility] - 10/04/2019 12:18 EDT Moderate Intensity Coumadin INR = 2.0-3.0 Adjustments in anticoagulant therapy dose should be based on the INR and NOT on the Protime. us Js Meza MD HEMATOLOGY & PF4 ORDERABLES Sobia l Result [facility] [address] [place] [address] * MAGNESIUM (10/03/2019 22:25 EDT) Magnesium 2.1 1.7 - 2.8 mg/dL 10/04/2019 10:23 EDT [facility] Blood VENOUS BLOOD / Unknown Venipuncture / Unknown 10/03/2019 22:25 EDT 10/03/2019 22:47 EDT us Js Meza MD CHEMISTRY & BLOOD GAS ORDERABLES Final Result Performing Organization Address City/[facility]/ZIP Co de Phone Number [facility] [address] [place] [address] * (ABNORMAL) HEMOGLOBIN A1C (10/03/2019 22:25 EDT) Hemoglobin A1c 15.8(H) <5.7 % 10/06/2019 8:39 EDT [facility] Comment: Glycemic Status References: [...] Avg Glucose 407 mg/dL 0 8:39 EDT [facility] Comment:The eAG represents t he A1c result expressed as average glucose in mg/dL. Blood VENOUS BLOOD / Unknown Venipuncture / Unknown 10/03/2019 22:25 EDT 10/03/2019 22:36 EDT us Yadira Cordova MD CHEMISTRY & BLOOD GAS ORDERAB LES Final Result Performing Organization Address City/[facility]/ZIP Co de Phone Number [facility] [address] [place] [address] * (ABNORMAL) SED. RATE:WESTERGREN (10/03/2019 22:25 EDT) Sed Rate >100(H) 0 - 20 mm/hr 10/04/2019 0:13 EDT [facility] Blood VENOUS BLOOD / Unknown Venipuncture / Unknown 10/03/2019 22:25 EDT 10/03/2019 22:36 EDT us Js Meza MD HEMATOLOGY & PF4 ORDERABLES Sobia l Result Performing Organization Address City/[facility]/ZIP Co de Phone Number [facility] [address] [place] [address] * (ABNORMAL) C REACTIVE PROTEIN (10/03/2019 22:25 EDT) C-Reactive Protein 263.5(H) <10.0 mg/L 10/04/2019 1:17 EDT [facility] Blood VENOUS BLOOD / Unknown Venipuncture / Unknown 10/03/2019 22:25 EDT 10/03/2019 22:47 EDT us Js Meza MD CHEMISTRY & BLOOD GAS ORDERABLES Final Result [facility] [address] [place] [address] * HOLD BLUE TOP (10/03/2019 22:25 EDT) Hold Hold 10/03/2019 23:46 EDT [facility] Blood VENOUS BLOOD / Unknown Venipuncture / Unknown 10/03/2019 22:25 EDT 10/03/2019 22:36 EDT us Makeda Padron MD LAB INFO SERVICE AND SUPPO RT & PHONE RESULT Final Result [facility] [address] [place] [address] * BLOOD BANK HOLD (10/03/2019 22:25 EDT) Hold BB Spec will exp at 23:59, 3 days from collect date 10/03/2019 22:49 EDT [facility] Blood VENOUS BLOOD / Unknown Venipuncture / Unknown 10/03/2019 22:25 EDT 10/03/2019 22:37 EDT us Makeda Padron MD BLOOD BANK TESTS Final Res ult [facility] [address] [facility] [place] [address] * LACTIC ACID (10/03/2019 22:25 EDT) Lactic Acid 1.2 <=2.0 mmol/L 10/03/2019 23:00 EDT [facility] Blood VENOUS BLOOD / Unknown Venipuncture / Unknown 10/03/2019 22:25 EDT 10/03/2019 22:47 EDT us Makeda Padron MD CHEMISTRY & BLOOD GAS ORDE RABLES Final Result [facility] [address] [place] [address] * (ABNORMAL) COMPLETE BLOOD COUNT AND DIFFERENTIAL (10/03/2019 22:25 ED) WBC 15.23(H) 4.00 - 10.40 K/cmm 10/03/2019 23:38 [facility] RBC 4.18(L) 4.36 - 5.78 M/cmm 10/03/2019 23:38 [facility] Hemoglobin 12.6(L) 13.8 - 17.3 gm/dL 10/03/2019 23:38 [facility] HCT 36.5(L) 39.5 - 50.2 % 10/03/2019 23:38 [facility] MCV 87 81 - 95 fl 10/03/2019 23:38 [facility] MCH 30.1 27.6 - 33.0 pg 10/03/2019 23:38 [facility] MCHC 34.5 32.8 - 36.4 gm/dL 10/03/2019 23:38 [facility] RDW-CV 12.0 <14.2 % 10/03/2019 23:38 [facility] RDW-SD 38.6 <46.0 fl 10/03/2019 23:38 [facility] PLT 274 141 - 377 K/cmm 10/03/2019 23:38 [facility] MPV 10.5 9.5 - 12.7 fl 10/03/2019 23:38 [facility] % Neutrophils 82.7 % 10/03/2019 23:38 [facility] % Lymphocytes 9.4 % 10/03/2019 23:38 [facility] % Monocytes 6.2 % 10/03/2019 23:38 [facility] % Eosinophils 0.3 % 10/03/2019 23:38 [facility] % Basophils 0.2 % 10/03/2019 23:38 [facility] % Immature Grans 1.2 % 10/03/19 20 23:38 [facility] Absolute Neutrophils 12.61(H) 2.20 - 8.85 K/cmm 10/03/2019 23:38 T [facility] Absolute Lymphocytes 1.43 1.09 - 3.30 K/cmm 10/03/2019 23:38 [facility] Absolute Monocytes 0.94(H) 0.10 - 0.80 K/cmm 10/03/2019 23:38 T [facility] Absolute Eosinophils 0.04 0.03 - 0.61 K/cmm 10/03/2019 23:38 T [facility] ABS Basophils 0.03 0.01 - 0.11 K/cmm 10/03/2019 23:38 [facility] Absolute Immature Grans 0.18(H) 0.00 - 0.06 K/cmm 10/03/2019 23:38 [facility] Type of Differential: Auto 10/03/2019 23:38 [facility] Blood VENOUS BLOOD / Unknown Venipuncture / Unknown 10/03/2019 22:25 EDT 10/03/2019 22:36 EDT us Makeda Padron MD PACKAGES & DNA PROBE ORDER ELIU Final Result [facility] [address] [place] [address] * (ABNORMAL) GLUCOSE, SERUM (10/03/2019 22:25 EDT) Glucose 357(H) 70 - 100 mg/dL 10/03/2019 23:00 EDT [facility] Blood VENOUS BLOOD / Unknown Venipuncture / Unknown 10/03/2019 22:25 EDT 10/03/2019 22:47 EDT us Makeda Padron MD CHEMISTRY & BLOOD GAS ORDE RABLES Final Result [facility] [address] [place] [address] * (ABNORMAL) ELECTROLYTES (10/03/2019 22:25 EDT) Sodium 130(L) 136 - 145 mEq/L 10/03/2019 23:00 EDT [facility] Potassium 3.4(L) 3.5 - 5.0 mEq/L 10/03/2019 23:00 EDT [facility] Chloride 87(L) 96 - 110 mEq/L 10/03/2019 23:00 EDT [facility] CO2 Total 29 22 - 32 mEq/L 10/03/2019 23:00 EDT [facility] Blood VENOUS BLOOD / Unknown Venipuncture / Unknown 10/03/2019 22:25 EDT 10/03/2019 22:47 EDT Makeda Padron MD CHEMISTRY & BLOOD GAS ORDKay ROMERO Final Result [facility] [address] [place] [address] * CREATININE (10/03/2019 22:25 EDT) Creatinine 0.73 0.66 - 1.25 mg/dL 10/03/2019 23:00 EDT [facility] eGFR 103 >60 mL/min/1.7 3m2 10/03/2019 23:00 T [facility] Comment:eGFR calculated sarahi krishnan CKD-EPI equation for non- Americans. Multiply eGFR by 1.16 for patients. Blood VENOUS BLOOD / Unknown Venipuncture / Unknown 10/03/2019 22:25 EDT 10/03/2019 22:47 EDT us Makeda Padron MD CHEMISTRY & BLOOD GAS ORDKay ROMERO Final Result [facility] [address] [place] [address] * BUN (10/03/2019 22:25 EDT) BUN 22 10 - 26 mg/dL 10/03/2019 23:00 EDT [facility] Blood VENOUS BLOOD / Unknown Venipuncture / Unknown 10/03/2019 22:25 EDT 10/03/2019 22:47 EDT us Makeda Padron MD CHEMISTRY & BLOOD GAS ORDE RABLES Final Result [facility] [address] [place] [address] * BACTERIAL CULTURE, BLOOD (10/03/2019 22:24 EDT) Organism ID No Growth at 5 days 10/08/2019 23:00 EDT [facility] Blood VENOUS BLOOD / Unknown Blood Culture / Unknown 10/03/2019 22:24 EDT 10/03/2019 22:54 EDT us Makeda Padron MD MICROBIOLOGY - GENERAL ORD ERABLES Final Result Performing Organization Address [facility] Co de Phone Number [facility] [address] [place] [id number] * (ABNORMAL) POCT GLUCOSE, INTERFACED (10/03/2019 22:05 EDT) Glucose, POC 376(H) 70 - 100 mg/dL 10/03/2019 22:06 EDT [facility] tubing supervisor ID [id number] 10/03/2019 22:06 EDT [facility] HN LAB POC COMMENT (GLUCOSE) Test Performed by Nursing Services 10/03/2019 22:06 EDT [facility] Blood CAPILLARY BLOOD / Unknown 10/03/2019 22:05 EDT 10/03/2019 22:06 EDT us Provider Unknown POINT OF CARE TEST ORDERABLE S Final Result [facility] [address] [place] [address] documented in this encounter Visit Diagnoses Diagnosis Acute osteomyelitis of right ankle or foot (HCC-CMS)- Primary Acute osteomyelitis, ankle and foot Osteomyelitis, unspecified site, unspecified type (HCC-CMS) Hyperglycemia Other abnormal glucose Other acute osteomyelitis of right foot (HCC-CMS) Diabetic foot infection ([facility]) Type II or unspecified type diabetes mellitus with other specified manifestations, not stated as uncontrolled Type 2 diabetes mellitus with hyperglycemia, with long-term current use of insulin ([facility]) Acute osteomyelitis of right ankle or foot ([facility]) Acute osteomyelitis, ankle and foot Uncontrolled type 2 diabetes mellitus with hyperglycemia ([facility]) Type 2 diabetes mellitus with diabetic polyneuropathy, with long-term current use of insulin ([facility]) Other acute osteomyelitis of foot, unspecified laterality ([facility]) Type 2 diabetes mellitus with hyperglycemia, without long-term current use of insulin ([facility]) Diabetic foot infection ([facility]) Type II or unspecified type diabetes mellitus with other specified manifestations, not stated as uncontrolled Type 2 diabetes mellitus with diabetic polyneuropathy, with long-term current use of insulin ([facility]) Acute osteomyelitis of right ankle or foot ([facility]) Acute osteomyelitis, ankle and foot documented in this encounter Admitting Diagnoses Diagnosis Diabetic foot infection ([facility]) Type II or unspecified type diabetes mellitus with other specified manifestations, not stated as uncontrolled Acute osteomyelitis of right ankle or foot ([facility]) Acute osteomyelitis, ankle and foot documented in this encounter Administered Medications Inactive Administered Medications - up to 3 most recent administrations Medication Order MAR Action Action Date Dose Rate Site acetaminophen (TYLENOL) tablet 1,000 mg 1,000 mg, oral, EVERY 6 HOURS PRN, Starting on Sun10/05/19 at 1600, Until Sun10/15/19 at 1714, Pain, Fever, Routine Given 10/15/2019 13:24 EDT 1,000 mg Given 10/15/2019 5:57 EDT 1,000 mg Given 10/14/2019 20:55 EDT 1,000 mg alteplase (CATHFLO ACTIVASE) injection 2 mg 2 mg, intercatheter, PRN, Starting on Sun10/15/19 at 0903, Until Sun10/15/19 at 1714, Line Care, Routine cholecalciferol (Vitamin D3) tablet 2,000 Units [...] Sun10/15/19 at 1714, Low Blood Sugar, Routine ertapenem (INVANZ) 1,000 mg in sodium chloride (NS MBP) 50 mL IVPB 1,000 mg, intravenous, Administer over 30 Minutes, DAILY, 7 doses, First dose on Sun10/15/19 at 0930, Last dose on Sun10/21/19 at 0900, Controlled antibiotic: has ID approved? Yes, Routine Given 10/15/2019 10:45 EDT 1,000 mg glucagon injection 1 mg 1 mg, intramuscular, [...] Given 10/14/2019 8:11 EDT 3 Units insulin glargine (LANTUS SOLOSTAR) injection pen 45 Units 45 Units, subcutaneous, AT BEDTIME, First dose (after last modification) on Sun10/12/19 at 2100, Until Discontinued, Routine Given 10/14/2019 20:58 EDT 45 Units Given 10/13/2019 21:53 EDT 45 Units Given 10/12/2019 21:11 EDT 45 Units lactated ringers (LR) infusion at 25 [...] 10/04/19 at 1300, Until Discontinued, Routine Given 10/15/2019 6:58 EDT 112 mcg Given 10/14/2019 6:31 EDT 112 mcg Given 10/13/2019 6:14 EDT 112 mcg lidocaine (PF) 10 mg/mL (1 %) injection 2 mg 2 mg, intradermal, PRN, 4 doses, Starting on Sun10/08/19 at 0728, Until Sun10/15/19 at 1714, peripheral intravenous catheter placement, Routine lidocaine 1 % 30 mL, bupivacaine (PF) (MARCAINE) 30 mL As needed, Starting on Caridad 10/09/19 at 1645, Until Caridad 10/09/19 at 1647, Routine, Intraprocedure Given 10/09/2019 16:45 EDT 29 mL methocarbamoL (ROBAXIN) tablet 750 mg 750 mg, oral, 4 TIMES DAILY, First dose on Sun10/05/19 at 1700, Until Discontinued, Routine Given 10/15/2019 13:23 EDT 75 0 mg Given 10/15/2019 9:30 EDT 750 mg Given 10/14/2019 20:55 EDT 750 mg Multivitamins with Minerals tablet 1 Tab 1 Tablet, oral, AT BEDTIME, First dose on Sun10/05/19 at 2100, Until Discontinued, Routine Given 10/14/2019 20:55 EDT 1 Tablet Given 10/13/2019 21:51 EDT 1 Tablet Given 10/12/2019 20:54 EDT 1 Tablet oxyCODONE (ROXICODONE) immediate release tablet 5-10 mg 5-10 mg, oral, EVERY 4 HOURS PRN, Starting on Sun10/05/19 at 1600, Until Sun10/15/19 at 1714, Pain, Routine Given 10/14/2019 17:26 EDT 10 mg Given 10/14/2019 9:06 EDT 10 mg Given 10/14/2019 0:46 EDT 10 mg sodium chloride 0.9 % (flush) flush 10 [...] mg Given 10/14/2019 7:51 EDT 50 mg zinc sulfate (ZINCATE) capsule 220 mg [...] hyperglycemia, without long-term current use of insulin ([facility]) Inject 70 Units into the skin at [...] Ventura RN) 0029 (Given - Provider: Nino Forbes RN)0532 (Given - Provider: Nino Forbes, JARVIS)1126 (Given - Provider: Rina Rosado RN)1726 (Given - Provider: Rina Rosado RN)2325 (Given - Provider: Nino Forbes, RN) 0557 (Given - Provider: Nino Forbes, RN) cholecalciferol (Vitamin D3) tablet 2,000 Units 2,000 Units, oral, AT BEDTIME, First dose on Sun10/05/19 at 2100, Until Discontinued, Routine 215 (Given - Provider: Daljit Ventura, RN) 2054 (Given - Provider: Nino Forbes, RN) ertapenem (INVANZ) 1,000 mg in sodium [...] Rina Rosado RN)1927 (Given - Provider: Daljit Ventura, RN) 0809 (Given - Provider: Rina Rosado [...] 2153 (Given - Provider: Daljit Ventura RN) 205 (Given - Provider: Nino Forbes, JARVIS) levothyroxine (SYNTHROID) tablet 112 mcg 112 mcg, oral, DAILY, First dose on 10/04/19 at 1300, Until Discontinued, Routine 0614 (Given - Provider: Bravo Figueroa RN) 0631 (Given - Provider: Nino Forbes, JARVIS) 0658 (Given - Provider: Nino Forbes RN) methocarbamoL (ROBAXIN) tablet 750 mg 750 mg, oral, 4 TIMES DAILY, First dose on 10/05/19 at 1700, Until Discontinued, Routine 0721 (Given - Provider: Bravo Figueroa RN)1203 (Given - Provider: Rina Rosado RN)1752 [...] on 10/05/19 at 2100, Until Discontinued, Routine 2150 (Given - Provider: Daljit Ventura RN) 2054 (Given - Provider: Nino Forbes RN) sodium chloride 0.9 % (flush) flush 10 mL 10 mL, intercatheter, WEEKLY, First dose on Sun10/15/19 at 1300, Until Discontinued, Routine 1329 (Given - Provid er: Rina Rosado RN) zinc sulfate (ZINCATE) capsule 220 mg 220 mg, oral, AT BEDTIME, First dose on 10/05/19 at 2100, Until Discontinued, Routine 2150 (Given - Provider: Daljit Ventura RN) 2054 [...] PRN, Starting on 10/05/19 at 1600, Until Sun10/15/19 at 1714, Pain, Fever, Routine 1619 (Given - Provider: Daljit Ventura RN) 0029 (Given - Provider: Nino Forbes, JARVIS)1126 (Given - Provider: Rina Rosado RN)2054 (Given - Provider: Nino Forbes RN) 0557 (Given - Provider: Nino Forbes, JARVIS)132 (Given - Provider: Rina Rosado RN) alteplase (CATHFLO ACTIVASE) injection 2 mg 2 [...] Bravo Figueroa RN)1752 (Given - Provider: An Sawyer, JARVIS) 0046 (Given - Provider: Nino Forbes, JARVIS)0906 (Given - Provider: Rina Rosado RN)1726 (Given [...] 0751 (Given - Provider: Rina Rosado RN) 0517 (Given - Provider: Nino Forbes, RN)1324 (Given - Provider: Rina Rosado, JARVIS) No Frequency Medication Order 10/13/2019 10/14/2019 10/15/2019 HYDROmorphone (PF) (DILAUDID) 0.5 mg/0.5 mL syringe 1 dose, Starting on Sun10/05/19 at 1715, Until Sun10/15/19 at 1714 documented in this encounter Orders Medications Ordered That Matthew ht Not Have Been Administered Count Last Ordered Date First Ordered Date alteplase (CATHFLO ACTIVASE) injection 2 mg 1 10/15/2019 ertapenem (INVANZ) 1,000 mg in sodium chloride (NS MBP) 50 mL IVPB 1 10/15/2019 insulin aspart U-100 (NOVOLO G FLEXPEN) injection 10 Units 1 10/15/2019 sodium chloride 0.9 % (flush) flush 10 mL 2 10/15/2019 sodium chloride 0.9 % (flush) flush 20 mL 1 10/15/2019 ampicillin-sulbactam (UNASYN ) 3,000 mg in sodium chloride (NS MBP) 100 mL infusion 1 10/13/2019 insulin aspart U-100 (NOVOLO G FLEXPEN) injection 12 Units 2 10/12/2019 10/07/2019 insulin glargine (LANTUS EMELY OSTAR) injection pen 45 Units 2 10/12/2019 10/08/2019 dextrose 50 % solution 12.5 g 3 10/10/2019 10/04/2019 glucagon injection 1 mg 3 10/10/2019 08/03/2019 insulin aspart U-100 (NOVOLO G FLEXPEN) injection 8 10/10/2019 10/04/2019 insulin aspart U-100 (NOVOLO G FLEXPEN) injection 15 Units 2 10/10/2019 10/08/2019 insulin glargine (LANTUS EMELY OSTAR) injection pen 55 Units 1 10/10/2019 atropine 0.1 mg/mL syringe 0.5 mg 2 020 10/05/2019 fentaNYL citrate (PF) injection 25-50 mcg 2 10/09/2019 10/05/2019 HYDROmorphone (PF) (DILAUDID ) 0.5 mg/0.5 mL syringe 0.25-0.5 mg 1 10/09/2019 lactated ringers (LR) infusion 3 10/09/2019 10/05/2019 naloxone (NARCAN) injection 0.2 mg 2 201910/05/2019 ondansetron (PF) (ZOFRAN) injection 4 mg 4 10/09/2019 10/04/2019 ceFAZolin (ANCEF) syringe 2 g 3 10/08/2019 10/04/2019 lidocaine (PF) 10 mg/mL (1 % ) injection 2 mg 1 10/08/2019 sodium chloride 0.9 % (NS) infusion 1 10/07 insulin glargine (LANTUS EMELY OSTAR) injection pen 38 Units 1 10/07/2019 insulin aspart U-100 (NOVOLO G FLEXPEN) injection 8 Units 1 10/06/2019 acetaminophen (TYLENOL) solu tion unit dose cup 995 mg 1 10/05/2019 acetaminophen (TYLENOL) tablet 1,000 mg 4 0 10/05/2019 10/04/2019 ascorbic acid (vitamin C) (V ITAMIN C) tablet 500 mg 2 10/05/2019 10/04/2019 bisacodyL (DULCOLAX) suppository 10 mg 2 10/04/2019 calcium carbonate (TUMS) 200 mg calcium (500 mg) per chewable tablet tablet,chewable 2 Tab 2 10/05/2019 10/04/2019 cholecalciferol (Vitamin D3) tablet 2,000 Units 2 10/05/2019 10/04/2019 diphenhydrAMINE (BENADRYL) i njection 12.5 mg 1 10/05/2019 docusate sodium (COLACE) capsule 200 mg 2 0 10/05/2019 10/04/2019 HYDROmorphone (PF) (DILAUDID ) 0.5 mg/0.5 mL syringe 1 10/05/2019 HYDROmorphone (PF) (DILAUDID ) 0.5 mg/0.5 mL syringe 0.25 mg 1 10/05/2019 methocarbamoL (ROBAXIN) tablet 1,000 mg 2 0 10/05/2019 10/04/2019 methocarbamoL (ROBAXIN) tablet 750 mg 1 04/2019 Multivitamins with Minerals tablet 1 Tab 2 10/05/2019 10/04/2019 ondansetron (ZOFRAN-ODT) dis integrating tablet 4 mg 2 10/05/2019 10/04/2019 oxyCODONE (ROXICODONE) immed iate release tablet 5-10 mg 2 10/05/2019 oxyCODONE (ROXICODONE) immed iate release tablet 5-15 mg 2 10/05/2019 10/04/2019 polyethylene glycol 3350 (HI RALAX) packet 17 g 2 10/05/2019 10/04/2019 senna (SENOKOT) tablet 2 Tab 2 10/05/2019 10/04/2019 sodium chloride 0.9 % irrigation 1 10/05/19 20 traMADoL (ULTRAM) tablet 50 mg 1 10/05/2019 zinc sulfate (ZINCATE) capsule 220 mg 2 04/201910/04/2019 acetaminophen (TYLENOL) suppository 975 mg 1 10/04/2019 atorvastatin (LIPITOR) tablet 20 mg 1 10/03 cefePIME (MAXIPIME) 2,000 mg in sodium chloride (NS MBP) 50 mL IVPB 1 10/04/2019 electrolyte-A (PLASMALYTE-A) solution 1 03/2019 gadobutroL (GADAVIST PFS) so lution solution 1-15 mmol 1 10/04/2019 insulin glargine (LANTUS EMELY OSTAR) injection pen 35 Units 1 10/04/2019 insulin glargine (LANTUS EMELY OSTAR) injection pen 70 Units 1 10/04/2019 levothyroxine (SYNTHROID) tablet 112 mcg 1 10/04/2019 metroNIDAZOLE (FLAGYL) tablet 500 mg 1 03/2019 potassium chloride in water infusion 20 mEq 1 10/04/2019 povidone-iodine solution 5% (Skin and Nasal Antiseptic) 1 Kit 1 10/04/2019 vancomycin (VANCOCIN) 1,750 mg in dextrose 5% (D5W) 500 mL IVPB 1 10/04/2019 piperacillin-tazobactam 4.5 g in sodium chloride (NS MBP) 100 mL IVPB 1 10/03/2019 vancomycin (VANCOCIN) 2,250 mg in dextrose 5% (D5W) 500 mL IVPB 1 10/03/2019 General Supply Count Last Ordered Date First [...] 10/04/2019 documented in this encounter Care Teams Human Resources Trainee Relationship Specialty Start Date End Date Karishma Batres MD [address] [place] [id number] PCP - General 07/27/11 12/31/23 documented as of this encounter
--- OUTSIDE RECORDS SUMMARY | 2024-02-28 16:52 | XMS_ITS | Encounter Summary ---
Author Organization [facility] Address [address] [place] [address] Care Team Providers Care Marketing Representative Name Role Phone Jason Batres MD Primary Care Provi margarita Reason for Visit * Reason Comments Diabetes Encounter Details Date Type Department Care Team (Latest Contact Info) Description 03/14/2018 9:00 EST Office Visit [facility] Endocrinology - [facility] [address] [place] [address] Yesi Marie NP [address] [facility] [address] [place] [address] Type 2 diabetes mellitus with hyperglycemia, without long-term current use of insulin ([facility]) (Primary Dx) Discharge Disposition: Auto Discharge Social History Tobacco Use Types Packs/Day Years Used Date Smoking Tobacco: Never Smokeless Tobacco: Former Chew Alcohol Use Standard Drinks/Week Comments No 0 (1 standard drink = 0.6 oz pur e alcohol) Sex and Gender Information Value Date Recorded Sex Assigned at Male 06/12/2023 11:45 EDT Legal Sex Male 18:05 EST Gender Identity Male 10/03/2019 21:06 EDT Sexual Orientation Straight 06/12/2023 11 :45 EDT documented as of this encounter Last Filed Vital Signs Vital Sign Reading Time Taken Comments Blood Pressure 137/83 03/14/2018 0900 EST Pulse 90 03/14/2018 0900 EST Temperature - - Respiratory Rate - - Oxygen Saturation - - Inhaled Oxygen Concentration - - Weight 123.8 kg (273 lb) 03/14/2018899 EST Height 188 cm (6' 2) 03/14/2018899 EST Body Mass Index 35.05 03/14/2018899 EST documented in this encounter Functional Status * Because of a physical, mental, or emotional condition, does this person have difficulty doing errands alone such as visiting a doctor's office or shopping? Answer Date of Assessment Author Yes 11/14/2017 15:47 EDT documented as of this encounter Mental Status * Because of a physical, mental, or emotional condition, does this person have serious difficulty concentrating, remembering, or making decisions? Answer Entry Date Author Yes 11/14/2017 15:47 EDT documented in this encounter Patient Instructions * Patient Instructions* Yesi Marie NP - 03/14/2018 9:00 EST Keep a small bowl for cereal at work for breakfast. Also keep some pre- measured snacks in truck (nuts such as almonds, walnuts pecans), as well as Skittles . Avoid chocolate and peanut butter if you feel low. Always carry glucose at all times erin at work and at bedside. Increase dinner shot (Humalog), to 40 units If getting low at night decrease dinner shot to 35 units. F/U in 2 months documented in this encounter Ordered Prescriptions Prescription Sig Dispense Quantity Refills Last Filled Start Date End Date insulin lispro (HUMALOG KWIKPEN) 100 unit/mL injectable pen Inject 40 Units into the skin daily with dinner. 36 mL 3 03/14/2018 10/15/2019 documented in this encounter Discharge Disposition Disposition Code Departure Means Destination Auto Discharge documented in this encounter Progress Notes * Rabia Castillo - 03/14/2018899 EST Fingerstick blood sample obtained for POCT Hemoglobin A1C performed for this DOS at the order of Yesi Marie NP/ Leslie Castillo DO * Yesi Marie NP - 03/14/2018 0900 EST [facility] Follow-up Note CHIEF COMPLAINT: Davi Narvaez presents with 1. Type 2 diabetes mellitus with hyperglycemia, without long-term current use of insulin ([facility]) 2. Craniopharyngioma with memory loss. 3. Chronic right foot infection Is really dehydrated I want to drink lots of water knees HPI: 57 year old male from [place] seen in follow-up for his type 2 diabetes and hypothyroidism. He was initially seen in our clinic by Dr. Ramos 11/29/2106 I have seen him 4 times since then most recently 01/16/2018 Please see notes for details. He also has seen one of our RD's. He is s/p brain tumor and has limited cognition after Surgery at [facility] 2003- . 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 As a result processes info slowly and needs reinforced. 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 He developed a foot ulcer July2017, and when seen in September was out of work in a walking boot with till early fall. At that time podiatry gave him the go ahead to work if stayed off his feet mostly. As a result does not help in thebarn with the cows but helps with chores that he does not have to be on his feet much for. He reports his chronic foot infection is much better since he started Humalog at dinner. He was seen in the ER 01/08 after caught a glove in a wood splitter wth a crush injury and laceration of left 2nd finger. He is getting over a URI Results for DAVI NARVAEZ ( ) as of 04/02/2018 15:48 Ref. Range 05/09/2017 09:43 07/25/2017 09:29 09/07/2017 11:30 11/14/2017 15:58 01/16/2018 08:15 01/17/2018 09:04 03/14/2018 09:00 03/28/2018 13:12 Hemoglobin A1c, POC Latest Ref Range: 5.7 % 12.1 (A) 12.0 (A) Hemoglobin A1C, POC Interfaced Latest Ref Range: <5.7 % 12.0 (H) 12.1 (H) 13.4 (H) 11.2 (H) 12.2(H) Ur Alb ug/mg Crea Latest Units: ug/mg Crea 15.4 Ur Albumin mg/dl Latest Units: mg/dL 2.8 He currently takes Glimiperide 4 mg twice daily metformin 1000 mg twice daily,Bydureon weekly ,Basagar 70 units in the evening and Humalog 20 units with his largest meal dinner. He very occ forgets his meds. Forgot his meter and testing little recently. No lows and says fasting blood sugars are 150-168 andafter work 175-200. Previously I showed him the [employer] continuous glucose sensor today ,and he is very interested. The sensor is worn 14 days does not require any calibration. He understandswill need to step up his testing most likely to qualify His wt got up to 305 while on steroids and took years to get down. He loves salad. He does not always remember to eat lunch (PB sandwich or crackers). He now only drinks diet soda and has lost 5 pounds. He now carries food T all times for lows. He tries to avoid thedoughnuts and pizza his boss sometimes buys them. Diabetes He presents for his follow-up diabetic visit. He has type 2 diabetes mellitus. Onset time: unsure Disease course: unchanged. There are no hypoglycemic associated symptoms. Associated symptoms includepolydipsia, polyuria and nocturia. Pertinent negatives for diabetes include no blurred vision, no fa tigue, no foot paresthesias, no foot ulcerations, no polyphagia, no visual change, no weakness and no weight loss. Pertinent negatives for diabetic complications include no CVA, heart disease, nephropathy, peripheral neuropathy, PVD or retinopathy. Risk factors for coronary artery disease include family history, obesity and male sex. He is compliant with treatment some of the time. He has had a previous visit with a dietitian. He participates in exercise daily. An CEM inhibitor/angiotensin II receptor bettye is not being taken. He sees a grader marker. Family history is reviewed and includes the following: unsure except for youger sister. Davi Narvaez has a history of being in poor glycemic control. Patient has a history of being compliant most of the time with medical therapy. Patient's home regimen consists of has a current medication list which includes the following prescription(s): blood glucose, blood glucose meter, exenatide microspheres, freestyle freedom lite, glimepiride, ibuprofen, insulin glargine (basaglar kwikpen), insulin lispro, insulin pen needles 31g x 3/16, lancets, levothyroxine, and metformin. Prior treatment for diabetes: medications: Various regimens of oral agents but he cannot recall except perhaps that he was on Januvia until the Bydureon was added. The patient has experienced the following acute complications: none. Social History Tobacco Use ??? Smoking status: Never Smoker ??? Smokeless tobacco: Former User Types: Chew Substance Use Topics ??? Alcohol use: No Psychosocial, cultural, or economic factors that might influence management of diabetes include: poor cognition , forgetfulness and inability to focus. REVIEW OF SYSTEMS: A ten point review of systems was performed. Pertinent positives are listed below, all others are negative: Except that which was harvested from our history of the present illness and also obtain elsewhere in the electronic medical record he does not recall very much of the systemic review but whenasked the rest the systemic review was otherwise negative Eye: none. Neurologic: Status post brain tumor with Slow thought processes and forgetfulness Kidney: none. Sexual: No inquiry made. PVD: Unremarkable. Skin: none. Cardiac: none. PHYSICAL EXAMINATION: Vitals:BP 137/83, pulse 90 Weight is 275 stable Physical Exam well-developed male in no acute distress. Slow cognitively processing thoughts secondary to. Brain tumor Heart & lung sounds unremarkable without carotid bruit Funduscopic: deferred Feet: deferred LABS: Lab Results Component Value Date CHOL 205 01/17/2018 HDL 43 01/17/2018 LDLBASE 125 01/17/2018 TRIG 184 01/17/2018 CHOLHDL 4.8 01/17/2018 Lab Results Component Value Date BUN 19 01/17/2018 CREATININE 0.81 01/17/2018 NA 139 01/17/2018 K 5.3 (H) 01/17/2018 Lab Results Component Value Date ALT 90 (H) 01/17/2018 Lab Results Component Value Date LABALBU 4.6 01/17/2018 UCREA 181.9 01/17/2018 Results for DAVI NARVAEZ ( ) as of 07/25/2017 10:20 Ref. Range 04/30/2007 13:45 10/01/2007 16:45 01/22/2013 10:25 02/25/2013 11:30 02/17/2016 14:33 T3, Total Latest Ref Range: 60 - 181 ng/dL 108 107 T4, Total Latest Ref Range: 4.5 - 10.9 ug/dL 7.1 Free T4 Latest Ref Range: 0.8 - 1.8 ng/dL 1.0 1.3 TSH Latest Ref Range: 0.55 - 4.78 uIU/ml 2.84 1.76 0.87 2.16 ASSESSMENT/PLAN: 1. Type 2 diabetes mellitus with hyperglycemia, without long-term current use of insulin ([facility]) Continued poor glycemic control but now on dinner bolus and I think blood sugars will improve Working hard to Limit diet. Because of his brain surgery has slow thought processes and forgetfulness , tried to avoid meal bolus insulin, but seems to be helping although needs a dose adjustment.given he is very active at work better to adjust his bolus and basal. Best I can tell compliance taking his diabetes meds is good, although occasionally misses one of his dinner glimiperide, and metformin. Difficult to test BS given working on farm and forgetful so would greatly benefit from a glucose sensor.could decrease risk of severe lows. Lipids are not at target- No recent labs found so will order today. BP at target without proteinuria, has a normal creatinine. He is not an Cem or ARB Hypothyroidism . Clinically euthyroid Glucose monitoring BID. Referred to diabetic education program. Referred to director of enterprise strategy no. Patient referred to eye care coordinator for annual dilated eye exam. Lifestyle modifications: recommend exercise and recommend compliance with a diabetic diet Patient does not demonstrate knowledge of diabetes and expectations. Patient does not understand medication regimen. Barriers to adherence: Cognitive Disability and From head injury. Goals and plan to achieve these discussed. Systolic blood pressure less than 140. And diastolic blood pressure less than 80. Hemoglobin A1C less than 7%. LDL cholesterol: 70 to 99. HDL males >40 and females >50 mgm/dl Clinically euthroid not recent tsh found. PLAN: Keep a small bowl for cereal at work for breakfast. Also keep some pre- measured snacks in truck (nuts such as almonds, walnuts pecans), as well as Skittles . Avoid chocolate and peanut butter if you feel low. Always carry glucose at all times erin at work and at bedside. Increase dinner shot (Humalog), to 40 units If getting low at night decrease dinner shot to 35 units. F/U in 2 months *More or less stringent glycemic goals may be appropriate for individual patients. Goals should be individualized based on: ??? duration of diabetes ??? age/life expectancy ??? comorbid conditions ??? known CVD or advanced microvascular complications ??? hypoglycemia unawareness ??? individual patient considerations Based on patient characteristics and response to therapy, lower SBP targets may be appropriate. * In individuals with overt CVD, a lower LDL-C goal of <70 mg/dl (1.8 mmol/l), using a high dose of a statin, is an option. Yesi Marie NP 03/14/2018 9:16 I spent a total of 30 minutes in face to face time with this patient, and 20 minutes of that time was spent in counseling and coordination of care as described in This progress note. This note is prepared with voiced recognition. Please excuse any thermal engineer errors. documented in this encounter Plan of Treatment Not on file documented as of this encounter Procedures Procedure Name Priority Date/Time Associated Diagnosis Comments POCT HEMOGLOBIN A1C, INTERFACED Routine 03/14/2018 9:00 EST Type 2 diabetes mellitus with hyperglycemia, without long-term current use of insulin ([facility]) documented in this encounter Results * (ABNORMAL) POCT HEMOGLOBIN A1C, INTERFACED (03/14/2018 9:00 EST) Hemoglobin A1C, POC Interfaced 12.2(H) <5.7 % 03/14/2018 9:18 EST [facility] debt recovery officer ID [id number] 03/14/2018 9:18 EST [facility] Comment: For Hgb A1c values =>10%, a venous blood measurement in the main laboratory for confirmation is available. Reference Range: <5.7% Normal 5.7-6.4% Prediabetes =>6.5% Diagnostic for diabetes (if confirmed) Goals for glycemic control in diabetes ADA 2017 For non adults with diabetes: ?? Target <7.0% For children and adolescents with type 1 diabetes: ?? Target <7.5% More or less stringent targets may be appropriate for individual patients. Test performed at Endocrinology Blood specimen (specimen) BLOOD SPECIMEN / Unknown 03/14/2018 9:00 EST 03/14/2018 9:18 EST Yesi Marie NP POINT OF CARE TEST ORDERABL ES Final Result [facility] [address] [place] [address] documented in this encounter Visit Diagnoses Diagnosis Type 2 diabetes mellitus with hyperglycemia, without long-term current use of insulin ([facility])- Primary documented in this encounter Discontinued Medications Medication Sig Discontinue Reason Start Date End Da te insulin lispro (HUMALOG KWIKPEN) 100 unit/mL injectable pen Inject 20 Units into the skin daily with dinner. 01/16/2018 03/14/2018 documented as of this encounter Care Teams Marketing Representative Relationship Specialty Start Date End Date Jason Batres MD [address] [place] [address] PCP - General 07/27/11 12/31/23 documented as of this encounter
--- OUTSIDE RECORDS SUMMARY | 2024-02-28 16:52 | XMS_ITS | Encounter Summary ---
Author Organization [facility] Address [address] [place] [address] Care Team Providers Care It Application Support Analyst Name Role Phone Jason Batres MD Primary Care Provi margarita Reason for Visit * Reason Comments Foot Problem Encounter Details Date Type Department Care Team (Late st Contact Info) Description 09/27/2018 10:30 EDT Office Visit [facility] Foot & Ankle Program - [address] [address] Angelina Gonzales [facility] [address] [place] [address] Ulcer of foot, right, with fat layer exposed ([facility]) (Primary Dx); Type 2 diabetes mellitus with diabetic polyneuropathy, with long-term current use of insulin (HCC-CMS); Status post amputation of toe of right foot ([facility]) Social History Tobacco Use Types [...] as of this encounter Functional Status * Because of [...] 11/14/2017 15:47 EDT documented in this encounter Progress Notes * Christian Dpm, Angelina M - 09/27/2018 1030 EDT Jeff Scott is a very pleasant 57 y.o. male patient who presents for follow up chronic right footulcer. He reports that he has been on his feet more and has not been wearing his boot all the time.He has been at work 2 to 3 hours a day, and sometimes takes his boot off and wears a shoe when he does this. He has had some mild discomfort in the foot. He has been doing the dressing changes and has not noticed anything concerning with this. He denies any nausea, vomiting, fever, chills. Patient Active Problem List Diagnosis Date Noted ??? Hyperplastic polyp of descending colon 08/01/2018 Priority: Medium ??? Type 2 diabetes mellitus with diabetic polyneuropathy, with long-term current use of insulin ([facility]) 06/24/2018 Priority: Medium ??? Acute osteomyelitis of phalanx of foot ([facility]) 03/23/2016 Priority: Medium ??? Hypothyroidism 01/22/2013 Priority: Medium ??? Osteoarthritis of left hip 07/06/2014 ??? 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 Arthritis ??? Back pain ??? Diabetes mellitus ([facility]) ??? Hypothyroidism ??? Wears glasses Past Surgical [...] Outpatient Medications Medication Sig Dispense Refill ??? atorvastatin (LIPITOR) 20 mg tablet Take 1 Tab by mouth daily. 90 Tab 3 ??? blood glucose (FREESTYLE TEST) test strips 1 Strip by misc (non-drug; combo route) route 2 times daily 100 Each 1 ??? blood glucose meter (FREESTYLE FREEDOM LITE) Test FS BID. 1 Each 0 ??? exenatide microspheres (BYDUREON) 2 mg/0.65 mL pen injector Inject 2 mg into the skin once a week. 4 Each 3 ??? FREESTYLE FREEDOM LITE Use as directed as needed (glucose monitoring). 1 Each 0 ??? glimepiride (AMARYL) 4 mg tablet TAKE ONE TABLET BY MOUTH TWICE DAILY 180 tablet 2 ??? ibuprofen (MOTRIN) 200 mg tablet Take 800 mg by mouth daily. ??? insulin glargine,hum.rec.anlog (INSULIN GLARGINE, BASAGLAR KWIKPEN,) 100 unit/mL (3 mL) injection pen Inject 70 Units into the skin at bedtime. 65 mL 3 ??? insulin lispro (HUMALOG KWIKPEN) 100 unit/mL injectable pen Inject 40 Units into the skin dailywith dinner. 36 mL 3 ??? lancets Test BID. 100 Each 1 ??? levothyroxine (SYNTHROID) 112 mcg tablet TAKE ONE TABLET BY MOUTH ONE TIME DAILY 90 tablet 1 No current facility-administered medications for this visit. No Known Allergies Review of Systems A ten point review of systems was performed. Pertinent positives are listed below, all others are negative. Vital signs: vitals were not taken for this visit. PHYSICAL EXAM: General: AO x 3, NAD Lower extremity:??RLE: Palpable pedal pulses. ??Skin temperature gradient within normal limits. ??Capillary filling time less than 3 seconds to all toes. ??Status post right partial second toe amputation. ??Well-healed. Ulcer plantar forefoot submetatarsal head 2. ??Measures 8??x 8 x 5??mm. ??Surrounding hyperkeratotic tissue and macerated tissue.??Granular wound base. ??No probe to bone, but does probe deep. ??No surrounding erythema or edema. ??No pain on palpation or probing. ??No malodor. ??No necrosis. No??drainage. ??MMT??5 out of 5. ??Gross protective sensation diminished, absent to forefoot. ASSESSMENT: 1. Ulcer of foot, right, with fat layer exposed (HCC-CMS) 2. Type 2 diabetes mellitus with diabetic polyneuropathy, with long-term current use of insulin (HCC-CMS) 3. Status post amputation of toe of right foot (HCC-CMS) No orders of the defined types were placed in this encounter. PLAN: Mr. Scott presents today for follow-up chronic right foot ulcer. This remains the same in terms of size and shape. No signs of infection. I did debride this today, skin and subcutaneous tissue, with a 15 blade, less than 20 cm??. He has been on his foot too much again and has not been wearing his boot as much as he should. We reviewed the importance of this getting the wound to heal. He is going to continue the dressing changes. I am going to see him back in 3 weeks. He knows to call before then if any problems arise and is happy with this plan. Portions of this document have been prepared with speech recognition software or keyboard database architect techniques. Minor irregularities or keyboarding misprints may be present documented in this encounter Plan of Treatment Not on file documented as of this encounter Visit Diagnoses Diagnosis Ulcer of foot, right, with fat layer exposed (HCC-CMS)- Primary Type 2 diabetes mellitus with diabetic polyneuropathy, with long-term current use of insulin ([facility]) Status post amputation of toe of right foot (HCC-CMS) Lower limb amputation, other toe(s) documented in this encounter Care Teams It Application Support Analyst Relationship Specialty Start Date End Date Jason Batres MD [address] [place] [id number] PCP - General 07/27/11 12/31/23 documented as of this encounter
--- OUTSIDE RECORDS SUMMARY | 2024-02-28 16:52 | XMS_ITS | Encounter Summary ---
Author Organization [facility] Address [address] [place] [address] Care Team Providers Care Financial Analyst Accountant Name Role Phone Jason Batres MD Primary Care Provi margarita Reason for Visit * Reason Onset Date Comments Medications Refill 06/30/2019 Encounter Details Date Type Department Care Team (Late st Contact Info) Description 06/30/2019 Refill [facility] Total Joint Program - [place] [place] [address] Kathy Tena, RN [address] [place] [address] Medications Refill Social History Tobacco Use Types [...] 11/14/2017 15:47 EDT documented in this encounter Plan of Treatment Not on file documented as of this encounter Visit Diagnoses Diagnosis Neuropathic ulcer of right foot with fat layer exposed (HCC-CMS)- Primary documented in this encounter Orders General Supply Count Last Ordered Date First Or dered Date NORMAL SALINE 1 06/30/2019 documented in this encounter Care Teams Financial Analyst Accountant Relationship Specialty Start Date End Date Jason Batres MD [address] [place] [address] PCP - General 07/27/11 12/31/23 documented as of this encounter
--- OUTSIDE RECORDS SUMMARY | 2024-02-28 16:52 | XMS_ITS | Encounter Summary ---
Author Organization [facility] Address [address] [place] [address] Care Team Providers Care Performance Architect Name Role Phone Jason Batres MD Primary Care Provi margarita Reason for Visit * Reason Comments Foot Problem Encounter Details Date Type Department Care Team (Late st Contact Info) Description 05/29/2018 11:30 EDT Office Visit [facility] Foot & Ankle Program - [address] [address] Angelina Gonzales [address] [place] [address] Ulcer of foot, right, with fat layer exposed (HCC-CMS) (Primary Dx); Status post amputation of toe of right foot (HCC-CMS); Type 2 diabetes mellitus with diabetic [...] Notes * Christian Dpm, Angelina M - 05/29/2018 1130 EDT Images from the original note were not included. Jeff Scott is a very pleasant 57 y.o. male patient who presents for follow up chronic right footulcer sub metatarsal head 2. He admits to being on his feet too much since I last saw him. He has had some discomfort in the foot, and notices that it requires more packing when he does the dressing changes. 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 He denies any nausea, vomiting, fever, chills. Patient Active Problem List Diagnosis Date Noted ??? Acute osteomyelitis of phalanx of foot ([facility]) 03/23/2016 Priority: Medium ??? Hypothyroidism 01/22/2013 Priority: Medium ??? Osteoarthritis of left hip 07/06/2014 ??? 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 Arthritis ??? Back pain ??? Diabetes mellitus ([facility]) ??? Hypothyroidism ??? Wears glasses Past Surgical History: Procedure Laterality Date ??? BRAIN SURGERY s/p tumor ??? EYE SURGERY Social History Tobacco Use ??? Smoking status: Never Smoker ??? Smokeless tobacco: Former User Types: Chew Substance Use Topics ??? Alcohol use: No Family History Problem Relation Age of Onset ??? Stroke Mother 71 ??? Cancer Father 65 lung cancer Current Outpatient Medications Medication Sig Dispense Refill [...] MOUTH ONE TIME DAILY 90 tablet 1 ??? metFORMIN (GLUCOPHAGE) 1,000 mg tablet TAKE ONE TABLET BY MOUTH TWICE DAILY with breakfast and dinner 180 tablet 2 No current facility-administered medications for this visit. [...] Ulcer plantar forefoot submetatarsal head 2. ??Measures 15 x 10 x 5??mm. ??Surrounding hyperkeratotic tissue and macerated tissue.??Granular wound base. ??No probe to bone, but does probe deep. ??No surrounding erythema or edema. ??No pain on palpation or probing. ??No malodor. ??No necrosis. No??drainage. ??MMT??5 out of 5. ??Gross protective sensation diminished, absent to forefoot. Right foot ulcer: ASSESSMENT: 1. Ulcer of foot, right, with fat layer exposed (HCC-CMS) 2. Status post amputation of toe of right foot (HCC-CMS) 3. Type 2 diabetes mellitus with diabetic polyneuropathy, with long-term current use of insulin (HCC-CMS) No orders of the defined types were placed in this encounter. PLAN: Mr. Scott presents today for follow-up chronic right foot ulcer submetatarsal head 2. I debrided this today, skin and subcutaneous tissue, less than 20 cm??, with a 15 blade. This has gotten larger in size since I last saw him. No signs of infection. I encouraged him to wear the boot as much as he is able, limit activity, and I advised him to stay out of work, as he is spending a lot of time on his feet. We reviewed why this leads to the ulcer worsening. I did write him a note for work- to be out of work until I see him next. I gave him some more supplies today. We discussed the effects of his blood sugar on wound healing. I am going to see him back in approximately 3 weeks. He knows to call before then if any problems arise and is happy with this plan. Portions of this document have been prepared with speech recognition software or keyboard data entry technician techniques. Minor irregularities or keyboarding misprints may be present documented in this encounter Plan of Treatment Not on file documented as of this encounter Visit Diagnoses Diagnosis Ulcer of foot, right, with fat layer exposed (HCC-CMS)- Primary Status post amputation of toe of right foot (HCC-CMS) Lower limb amputation, other toe(s) Type 2 diabetes mellitus with diabetic polyneuropathy, with long-term current use of insulin (HCC-CMS) documented in this encounter Care Teams Performance Architect Relationship Specialty Start Date End Date Jason Batres MD [address] [place] [id number] PCP - General 07/27/11 12/31/23 documented as of this encounter
--- OUTSIDE RECORDS SUMMARY | 2024-02-28 16:52 | XMS_ITS | Encounter Summary ---
Author Organization [facility] Address [address] [place] [address] Care Team Providers Care Residential Energy Auditor Name Role Phone Jason Batres MD Primary Care Provi margarita Reason for Visit * Reason Comments Foot Problem Encounter Details Date Type Department Care Team (Late st Contact Info) Description 10/18/2018 9:30 EDT Office Visit [facility] Foot & Ankle Program - [address] [address] Angelina Gonzales [facility] [address] [place] [address] Ulcer of foot, right, with fat layer exposed ([facility]) (Primary Dx); Type 2 diabetes mellitus with diabetic polyneuropathy, with long-term current use of insulin (HCC-CMS); Status post amputation of toe of right foot ([facility]) Social History [...] this encounter Progress Notes * Angelina Gonzales M - 10/18/2018 0930 EDT Jeff Scott is a very pleasant 57 y.o. male patient who presents for follow up chronic right footulcer submetatarsal head 2. Reports that this has remained about the same since I last saw him. He has been working on his feet a lot still. He does wear the boot when he works. He did get some new shoes today, and has been pleased with these. He wears them on his right when he drives, and wears iton his left at all times. Patient Active Problem List Diagnosis Date Noted ??? Hyperplastic polyp of descending colon 08/01/2018 Priority: Medium ??? Type 2 diabetes mellitus with diabetic polyneuropathy, with long-term current use of insulin ([facility]) 06/24/2018 Priority: Medium ??? Acute osteomyelitis of phalanx of foot ([facility]) 03/23/2016 Priority: Medium ??? Hypothyroidism 01/22/2013 Priority: Medium ??? Osteoarthritis of left hip 07/06/2014 ??? 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 Arthritis ??? Back pain ??? Diabetes mellitus ([facility]) ??? Hypothyroidism ??? Wears glasses Past Surgical [...] plantar forefoot submetatarsal head 2. ??Measures 8??x 7 x??4??mm. ??Surrounding hyperkeratotic tissue. Mild maceration.??Granular wound base. ??No probe to bone, but does probe deep. ??No surrounding erythema or edema. ??No pain on palpation or probing. ??No malodor. ??Nonecrosis. No??drainage. ??MMT??5 out of 5. ??Gross protective [...] 15 blade, less than 20 cm??. He continues to be on his feet too much. We reviewed the importance of limiting his activity, even when he is wearing the boot, in getting the wound to heal. He noted understanding. I wrote him a note for work to be out of work for the next couple months. We discussed the possibility of a cast, however he would like to continue to hold off on this. He is going to continue the dressing changes. I am going to see him back in 3 weeks. He knows to call before then if any problems arise and is happy with this plan. Portions of this document have been prepared with speech recognition software or keyboard data sme techniques. Minor irregularities or keyboarding misprints may be present documented in this encounter Plan of Treatment Not on file documented as of this encounter Visit Diagnoses Diagnosis Ulcer of foot, right, with fat layer exposed (HCC-CMS)- Primary Type 2 diabetes mellitus with diabetic polyneuropathy, with long-term current use of insulin (HCC-CMS) Status post amputation of toe of right foot (HCC-CMS) Lower limb amputation, other toe(s) documented in this encounter Care Teams Residential Energy Auditor Relationship Specialty Start Date End Date Jason Batres MD [address] [place] [address] PCP - General 07/27/11 12/31/23 documented as of this encounter
--- OUTSIDE RECORDS SUMMARY | 2024-02-28 16:52 | XMS_ITS | Encounter Summary ---
Author Organization [facility] Address [address] [place] [address] Care Team Providers Care Oil Processing Technician Name Role Phone Jason Batres MD Primary Care Provi margarita Reason for Visit * Reason Comments Foot Pain Rt Encounter Details Date Type Department Care Team (Late st Contact Info) Description 01/23/2018 13:45 EST Office Visit [facility] Foot & [facility]le Program - [address] [address] Angelina Gonzales [facility] [address] [place] [address] Ulcer of foot, right, with fat layer exposed ([facility]) (Primary Dx); Type 2 diabetes mellitus [...] Progress Notes * Angelina Gonzales, DPM - 01/23/2018 1345 EST Jeff Scott is a very pleasant 57 y.o. male patient who presents for follow up chronic ulcer right foot. He reports that it has remained about the same. He has not noticed any signs of infection. He changes the dressing regularly. He tries to wear the offloading boot most the time. He removes it when he works and where some of the boot. He does admit to being pretty active at work the past few w eeks. Overall he is feeling well today and denies any nausea, vomiting, fever, chills. Mr. Scott does report a recent finger injury. He was seen in the emergency department for this and has been doing dressing changes here. He believes he was supposed to follow-up with his primary caredoctor but did not do this. Patient Active Problem List Diagnosis Date Noted ??? Acute osteomyelitis of phalanx of foot ([facility]) 03/23/2016 Priority: Medium ??? Hypothyroidism 01/22/2013 Priority: Medium ??? Osteoarthritis of left hip 07/06/2014 ??? 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 Arthritis ??? Back pain ??? Diabetes mellitus ([facility]) ??? Hypothyroidism ??? Wears glasses Past [...] Outpatient Medications Medication Sig Dispense Refill ??? blood glucose (FREESTYLE TEST) test strips [...] 0 ??? glimepiride (AMARYL) 4 mg tablet Take 1 Tab by mouth 2 times daily. 180 Tab 3 ??? ibuprofen (MOTRIN) 200 mg tablet Take 800 mg by mouth daily. ??? insulin glargine,hum.rec.anlog (INSULIN GLARGINE, BASAGLAR KWIKPEN,) 100 unit/mL (3 mL) injection pen Inject 70 Units into the skin at bedtime. 65 mL 3 ??? insulin lispro (HUMALOG KWIKPEN) 100 unit/mL injectable pen Inject 20 Units into the skin dailywith dinner. 18 mL 3 ??? insulin pen needles 31G x 3/16 Use 1 pen needle as directed daily. Brand: BD Ultra Fine Mini 100 Each 12 ??? lancets Test BID. 100 Each 1 ??? levothyroxine (SYNTHROID) 112 mcg tablet TAKE ONE TABLET BY MOUTH ONE TIME DAILY 90 Tab 2 ??? metFORMIN (GLUCOPHAGE) 1,000 mg tablet Take 1 Tab by mouth 2 times daily with breakfast and dinner. 180 Tab 3 No current facility-administered medications for this visit. [...] Ulcer plantar forefoot submetatarsal head 2. ??Measures 7 x 5??mm. Surrounding hyperkeratotic tissue- mild. Granular wound base. ??No probe to bone. ??No surrounding erythema or edema. ??No pain on palpation or probing. ??No malodor. ??No necrosis. No??drainage. ??MMT??5 out of 5. ??Gross protective sensation diminished. ASSESSMENT: 1. Ulcer of foot, right, with fat layer exposed (HCC-CMS) 2. Type 2 diabetes mellitus with diabetic polyneuropathy, with long-term current use of insulin (HCC-CMS) No orders of the defined types were placed in this encounter. PLAN: Mr. Scott presents today for follow-up chronic foot ulcer right plantar forefoot. This has slightlyincreased in size since last visit. No signs of infection. I did debride the wound today, skin and subcutaneous tissue, with a 15 blade, less than 20 cm??. We reviewed why the wound is not improving.He has been on his feet too much at work, and not wearing the offloading boot here. I stressed the importance of wearing the offloading boot at all times and limiting how much he is working. He is going to continue with the daily dressing changes. I am going to see him back in 2-3 weeks. I also encouraged him to make an appointment with his primary care doctor to follow-up on the finger injury. He knows to call with any questions prior to follow-up and is happy with this plan. Portions of this document have been prepared with speech recognition software or keyboard data technical lead techniques. Minor irregularities or keyboarding misprints may be present documented in this encounter Plan of Treatment Not on file documented as of this encounter Visit Diagnoses Diagnosis Ulcer of foot, right, with fat layer exposed (HCC-CMS)- Primary Type 2 diabetes mellitus with diabetic polyneuropathy, with long-term current use of insulin (HCC-CMS) documented in this encounter Care Teams Oil Processing Technician Relationship Specialty Start Date End Date Jason Batres MD [address] [place] [id number] PCP - General 07/27/11 12/31/23 documented as of this encounter
--- OUTSIDE RECORDS SUMMARY | 2024-02-28 16:52 | XMS_ITS | Encounter Summary ---
Author Organization Health system Address [address] [place] [address] Care Team Providers Care Snow Plow Tractor Operator Name Role Phone Jason Batres MD Primary Care Provi margarita Reason for Visit * Reason Onset Date Comments Medications Refill 06/20/2019 Encounter Details Date Type Department Care Team (Late st Contact Info) Description 06/20/2019 Refill [facility] Total Joint Program [place] [place] [address] Kathy Tena, RN [address] [place] [address] Medications Refill Social History Tobacco Use Types [...] 11/14/2017 15:47 EDT documented in this encounter Miscellaneous Notes * Telephone Encounter - Kathy Tena, RN - 06/20/2019 1541 EDT Patient calls requesting prescription for refill of saline solution for right foot wound care. He is unable to locate this solution over the counter and [facility] [place] does carry but needs an RX to fill. 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
--- OUTSIDE RECORDS SUMMARY | 2024-02-28 16:52 | XMS_ITS | Encounter Summary ---
Author Organization [facility] Address [address] [place] [address] Care Team Providers Care Scientific Investigator Name Role Phone Jason Batres MD Primary Care Provi margarita Reason for Visit * Reason Comments Foot Problem Encounter Details Date Type Department Care Team (Late st Contact Info) Description 09/04/2018 11:30 EDT Office Visit [facility] Foot & Ankle Program - [address] [address] Angelina Gonzales [facility] [address] [place] [address] Ulcer of foot, right, with fat layer exposed ([facility]) (Primary Dx); Type 2 diabetes mellitus with diabetic polyneuropathy, with long-term current use of insulin (HCC-CMS); Status post amputation of toe of right foot ([facility]) Social History Tobacco Use Types Packs/Day Years [...] Notes * Christian Dpm, Angelina M - 09/04/2018 1130 EDT Jeff Scott is a very pleasant 57 y.o. male patient who presents for follow up chronic right footulcer submetatarsal head 2. He believes it is getting smaller. He has not been able to put as much packing in. He has been trying to wear the boot as much as possible. He has not been going to work as much. Overall he is feeling well. He denies any nausea, vomiting, fever, chills. He denies any pain in the foot. Patient Active Problem List Diagnosis Date Noted ??? Hyperplastic polyp of descending colon 08/01/2018 Priority: Medium ??? Type 2 diabetes mellitus with diabetic polyneuropathy, with long-term current use of insulin ([facility]) 06/24/2018 Priority: Medium ??? Acute osteomyelitis of phalanx of foot ([facility]) 03/23/2016 Priority: Medium ??? Hypothyroidism 01/22/2013 Priority: Medium ??? Osteoarthritis of left hip 07/06/2014 ??? 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 Arthritis ??? Back pain ??? Diabetes mellitus ([facility]) ??? Hypothyroidism ??? Wears glasses [...] TAKE ONE TABLET BY MOUTH TWICE DAILY (Patient not taking: Reported on 08/21/2018) 180 tablet 2 ??? ibuprofen (MOTRIN) 200 [...] Ulcer plantar forefoot submetatarsal head 2. ??Measures 8 x 7 x 5??mm. ??Surrounding hyperkeratotic tissue and macerated tissue.??Granular wound base. ??No probe to bone, but doesprobe deep. ??No surrounding erythema or edema. ??No [...] presents today for follow-up right foot ulcer submetatarsal head 2. I debrided this today, skin and subcutaneous tissue, less than 20 cm??, with a 15 blade. It has improved in depth since last visit. No signs of infection. He is going to continue to try to stay off the foot is much as possible and continue in the diabetic offloading boot. He is going to continue with the dressing changes. I am going to see him back in 3 weeks. He knows to call before then if any problems arise and is happy with this plan. Portions of this document have been prepared with speech recognition software or keyboard databases software consultant techniques. Minor irregularities or keyboarding misprints may be present documented in this encounter Plan of Treatment Not on file documented as of this encounter Visit Diagnoses Diagnosis Ulcer of foot, right, with fat layer exposed (HCC-CMS)- Primary Type 2 diabetes mellitus with diabetic polyneuropathy, with long-term current use of insulin ([facility]) Status post amputation of toe of right foot ([facility]) Lower limb amputation, other toe(s) documented in this encounter Care Teams Scientific Investigator Relationship Specialty Start Date End Date Jason Batres MD [address] [place] [address] PCP - General 07/27/11 12/31/23 documented as of this encounter
--- OUTSIDE RECORDS SUMMARY | 2024-02-28 16:52 | XMS_ITS | Encounter Summary ---
Author Organization [facility] Address [address] [place] [address] Care Team Providers Care Pipe Stem Aligner Name Role Phone Jason Batres MD Primary Care Provi margarita Reason for Visit * Reason Onset Date Comments Other 10/03/2019 Encounter Details Date Type Department Care Team (Late st Contact Info) Description 10/03/2019 Telephone [facility] Foot & Ankle Program - [address] [address] Angelina Gonzales, CASSIA [address] [place] [address] Other Social History Tobacco Use Types Packs/Day Years Used Date Smoking Tobacco: Never Smokeless Tobacco: Former Chew Alcohol Use Standard Drinks/Week Comments No 0 (1 standard drink = 0.6 oz pur e alcohol) PHQ-2 Answer Date Recorded PHQ-2 SUBTOTAL 1 10/04/2019 Sex and Gender Information Value Date Recorded [...] Telephone Encounter - Herlinda Navarro LPN - 10/03/2019 1626 EDT Jeff's Nguyen calls late this afternoon with concerns over his right foot ulcer. She states hisfoot is the most swollen she has ever seen it. She reports that she was away for four days and isn't sure he has done any wound care on it. He has had a bout of diarrhea but doesn't report any fevers. He has been more fatigued. She has called PCP and wonders if she should take him to the ED. Advised that Jeff shouldn't let this wait over the weekend and would agree that an ED or walk in evaluation would be necessary. She states she will do so. HERLINDA NAVARRO LPN documented in this encounter Plan of Treatment Not on file documented as of this encounter Visit Diagnoses Not on filedocumented in this encounter Care Teams Pipe Stem Aligner Relationship Specialty Start Date End Date Jason Batres MD [address] [place] [id number] PCP - General 07/27/11 12/31/23 documented as of this encounter
--- OUTSIDE RECORDS SUMMARY | 2024-02-28 16:52 | XMS_ITS | Encounter Summary ---
Author Organization [facility] Address [address] [place] [address] Care Team Providers Care Junior Estimator Name Role Phone Jason Batres MD Primary Care Provi margarita Alexus De La O RN [facility] Internal Medicine, Primary Care Provi margarita Reason for Visit * Reason Comments Other Encounter Details Date Type Department Care Team (Late st Contact Info) Description 08/31/2019 Refill Jason Batres MD, PC [address] [place] [address] Jason Batres MD [address] [place] [phone] Other Social History Tobacco Use Types [...] 11/14/2017 15:47 EDT documented in this encounter Ordered Prescriptions Prescription Sig Dispense Quantity Refills Last Filled Start Date End Date atorvastatin (LIPITOR) 20 mg tablet TAKE ONE TABLET BY MOUTH ONE TIME DAILY 90 Tab 2 09/01/2019 04/22/2020 glimepiride (AMARYL) 4 mg tablet TAKE ONE TABLET BY MOUTH TWICE DAILY 180 Tab 1 09/01/2019 10/15/2019 documented in this encounter Plan of Treatment Not on file documented as of this encounter Visit Diagnoses Not on filedocumented in this encounter Discontinued Medications Medication Sig Discontinue Reason Start Date End Da te glimepiride (AMARYL) 4 mg tablet TAKE ONE TABLET BY MOUTH TWICE DAILY 05/28/2018 09/01/2019 atorvastatin (LIPITOR) 20 mg tablet Take 1 Tab by mouth daily. 03/28/2018 09/01/2019 documented as of this encounter Additional Health Concerns Infection Onset Date Last Indicated Resolved Time R/O COVID-19 Comment:Negative swab 12/22/2020 12/22/2020 12/22/2020 10 021 7:17 EDT R/O COVID-19 Comment:Negative 02/17/2022 02/17/2022 02/18/2022 7:30 EST Rule-Out C. difficile 02/25/2022 02/25/20222021 12:00 EST R/O COVID-19 04/09/2022 04/09/2022 04/09/2022 16:3 2 EST documented as of this encounter Care Teams Junior Estimator Relationship Specialty Start Date End Date Jason Batres MD [address] [place] [address] PCP - General 07/27/11 12/31/23 [facility] Internal Medicine, [place]p [address] [place] [place] [address] PCP - General 01/01/24 Alexus De La O construction equipment overhauler 04/18/22 08/13/23 documented as of this encounter
--- OUTSIDE RECORDS SUMMARY | 2024-02-28 16:52 | XMS_ITS | Encounter Summary ---
Author Organization [facility] Address [address] [place] [address] Care Team Providers Care Television Inspector Name Role Phone Jason Batres MD Primary Care Provi margarita Encounter Details Date Type Department Care Team (Latest Contact Info) Description 10/03/2019 Travel Social History Tobacco Use Types Packs/Day [...] on filedocumented in this encounter Care Teams Television Inspector Relationship Specialty Start Date End Date Jason Batres MD [address] [place] [address] PCP - General 07/27/11 12/31/23 documented as of this encounter
--- OUTSIDE RECORDS SUMMARY | 2024-02-28 16:52 | XMS_ITS | Encounter Summary ---
Author Organization [facility] Address [address] [place] [address] Care Team Providers Care Construction Engineer Name Role Phone Jason Batres MD Primary Care Provi margarita Reason for Visit * Reason Comments Foot Problem Encounter Details Date Type Department Care Team (Late st Contact Info) Description 06/19/2018 8:30 EDT Office Visit [facility] Foot & Ankle Program - [address] [address] Angelina Gonzales [facility] [address] [place] [address] Ulcer of foot, right, with [...] Progress Notes * Angelina Gonzales, BRENDA - 06/19/2018 0830 EDT Jeff Scott is a very pleasant 57 y.o. male patient who presents for follow up chronic right footulcer submetatarsal head 2. He reports that he has been staying out of work. He was wearing a walking boot, however the insole became very worn out and broke, so he has been back to wearing his shoe.He has been changing the dressing twice a day. Overall he is feeling well denies any nausea, vomiting, fever, chills. Patient Active Problem List Diagnosis Date Noted ??? Acute osteomyelitis of phalanx of foot ([facility]) 03/23/2016 Priority: Medium ??? Hypothyroidism 01/22/2013 Priority: Medium ??? Osteoarthritis of left hip 07/06/2014 ??? 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 Arthritis ??? Back pain ??? Diabetes mellitus ([facility]) ??? Hypothyroidism ??? Wears glasses [...] Ulcer plantar forefoot submetatarsal head 2. ??Measures 13 x 7 x 5??mm. ??Surrounding hyperkeratotic tissue and macerated tissue.??Granular wound base. ??No probe to bone, but does probe deep. ??No surrounding erythema or edema. ??No pain on palpation or probing. ??No malodor. ??No necrosis. No??drainage. ??MMT??5 out of 5. ??Gross protective sensation diminished, absent to forefoot. ?? ASSESSMENT: 1. Ulcer of foot, right, with [...] and subcutaneous tissue, less than 20 cm??. This has improved slightly in size compared to last visit. I commended him on staying out of work. He will do better with this and all the offloading boot, so we will see if he can get a new insole for his boot today. He is going to continuewith the dressing changes. I am going to see him back in 2-3 weeks. He is going to continue to stayout of work and to limit his activity. He knows to call with any questions prior to follow-up and is happy with this plan. Portions of this document have been prepared with speech recognition software or keyboard database marketing analyst techniques. Minor irregularities or keyboarding misprints [...] long-term current use of insulin ([facility]) documented in this encounter Care Teams Construction Engineer Relationship Specialty Start Date End Date Jason Batres MD [address] [place] [address] PCP - General 07/27/11 12/31/23 documented as of this encounter
--- OUTSIDE RECORDS SUMMARY | 2024-02-28 16:52 | XMS_ITS | Encounter Summary ---
Author Organization [facility] Address [address] [place] [address] Care Team Providers Care Washroom Attendant Name Role Phone Jason Batres MD Primary Care Provi margarita Encounter Details Date Type Department Care Team (Late st Contact Info) Description 07/30/2018 12:16 EDT - 07/30/2018 14:36 EDT Hospital Encounter [facility] Endoscopy Outpatient [address] [place] [address] Jonathan Osei MD [address] [place] [address] [address] [place] [address] Discharge Disposition: Home or Self Care Social [...] Sign Reading Time Taken Comments Blood Pressure 113/74 07/30/2018 1400 EDT Pulse - - Temperature 36 ??C (96.8 ??F) 07/30/2018 1345 EDT Respiratory Rate 14 07/30/2018 1400 EDT Oxygen Saturation 94% 07/30/2018 1400 EDT Inhaled Oxygen Concentration - - Weight 120.2 kg (265 lb) 07/30/2018 1239 EDT Height 188 cm (6' 2) 07/30/2018 1239 EDT Body Mass Index 34.02 07/30/2018 1239 EDT documented in this encounter Functional Status [...] 11/14/2017 15:47 EDT documented in this encounter Discharge Diagnoses Diagnosis Z12.11 Encounter for screening for malignant neoplasm of colon-Z12.11[ICD-10-CM] R19.7 Diarrhea, unspecified-R19.7[ICD-10-CM] K62.1 Rectal polyp-K62.1[ICD-10-CM] K57.30 Diverticulosis of large intestine without perforation or abscess without bleeding-K57.30[ICD-10-CM] K64.8 Other hemorrhoids-K64.8[ICD-10-CM] E11.9 Type 2 diabetes mellitus without complications-E11.9[ICD-10-CM] Z79.4 [facility] (current) use of insulin-Z79.4[ICD-10-CM] E03.9 Hypothyroidism, unspecified-E03.9[ICD-10-CM] Z87.891 Personal history of nicotine dependence-Z87.891[ICD-10-CM] Z79.899 Other detention (current) drug therapy-Z79.899[ICD-10-CM] documented in this encounter Medications at Time of Discharge blood glucose meter (FREESTYLE FREEDOM LITE) Test FS BID. 1 Each 0 11/11/2013 FREESTYLE FREEDOM LITE Use as directed as needed (glucose monitoring). 1 Each 11/14/2017 atorvastatin (LIPITOR) 20 mg tablet Take 1 Tab by mouth daily. 90 Tab 3 03/28/2018 0 blood glucose (FREESTYLE TEST) test strips 1 Strip by misc (non-drug; combo route) route 2 times daily 100 Each 1 05/11/2014 2 exenatide microspheres (BYDUREON) 2 mg/0.65 mL pen injector Inject 2 mg into the skin once a week. 4 Each 3 12/12/2017 0 glimepiride (AMARYL) 4 mg tablet TAKE ONE TABLET BY MOUTH TWICE DAILY 180 tablet 2 05/28/2018 0 ibuprofen (MOTRIN) 200 mg tablet Take 800 mg by mouth daily. 1 insulin glargine,hum.rec.a nlog (INSULIN GLARGINE, BASAGLAR KWIKPEN,) 100 unit/mL (3 mL) injection penIndications:Typ e 2 diabetes mellitus with hyperglycemia, without long-term current use of insulin ([facility]) Inject 70 Units into the skin at bedtime. 65 mL 3 11/14/2017 0 insulin lispro (HUMALOG KWIKPEN) 100 unit/mL injectable pen Inject 40 Units into the skin daily with dinner. 36 mL 3 03/14/2018 0 lancets Test BID. 100 Each 1 11/11/2013 3 levothyroxine (SYNTHROID) 112 mcg tablet TAKE ONE TABLET BY MOUTH ONE TIME DAILY 90 tablet 1 05/28/2018 9 metFORMIN (GLUCOPHAGE) 1,000 mg tablet TAKE ONE TABLET BY MOUTH TWICE DAILY with breakfast and dinner 180 tablet 2 05/28/2018 9 documented as of this encounter Discharge Disposition Disposition Code Departure Means Destination Home or Self Care documented in this encounter H&P Notes * Jonathan Osei MD - 07/30/2018 1302 EDT Endoscopy Sedation for Procedure History & Physical Date: 07/30/2018 Time: 13:02 Location: [facility] Endo Planned Procedure: Colonoscopy Chief Complaint/Indications for Procedure: diarrhea / screening History Previous Complication with Sedation and/or Anesthesia? No Allergies: No Known Allergies Current Medications: Current Outpatient Medications: atorvastatin (LIPITOR) 20 mg tablet blood glucose (FREESTYLE TEST) test strips blood glucose meter (FREESTYLE FREEDOM LITE) exenatide microspheres (BYDUREON) 2 mg/0.65 mL pen injector FREESTYLE FREEDOM LITE glimepiride (AMARYL) 4 mg tablet ibuprofen (MOTRIN) 200 mg tablet insulin glargine,hum.rec.anlog (INSULIN GLARGINE, BASAGLAR KWIKPEN,) 100 unit/mL (3 mL) injection pen insulin lispro (HUMALOG KWIKPEN) 100 unit/mL injectable pen lancets levothyroxine (SYNTHROID) 112 mcg tablet metFORMIN (GLUCOPHAGE) 1,000 mg tablet Current Facility-Administered Medications: diphenhydrAMINE (BENADRYL) injection 25 mg intravenous Once PRN fentaNYL citrate (PF) injection 25-250 mcg intravenous Once PRN lactated ringers (LR) infusion intravenous CONTINUOUS midazolam (MDV) (VERSED) injection 1-10 mg intravenous Once PRN ondansetron (PF) (ZOFRAN) injection 2-4 mg intravenous PRN sodium chloride 0.9 % (flush) flush 3 mL intravenous PRN Past Medical History: Past Medical History: Diagnosis Date ??? Arthritis ??? Back pain ??? Diabetes mellitus (HCC-CMS) ??? Hypothyroidism ??? Wears glasses Social History: Past Surgical History: Procedure Laterality Date ??? BRAIN SURGERY s/p tumor ??? EYE SURGERY ??? FOOT SURGERY Right 03/23/2016 Right partial 2nd toe amputation Social History Tobacco Use ??? Smoking status: Never Smoker ??? Smokeless tobacco: Former User Types: Chew Substance Use Topics ??? Alcohol use: No Family History: Family History Problem Relation Age of Onset ??? Stroke Mother 71 ??? Cancer Father 65 lung cancer ??? Colon Cancer Neg Hx Review of Systems as pertinent: Physical Exam Vital Signs: Temp 36.8 ??C (98.2 ??F) (Tympanic) Ht 188 cm (74) Wt (!) 120.2 kg (265 lb) BMI34.02 kg/m?? Heart Examination: Cardiac Regularity: Regular Respiratory Examination: Respiratory Pattern: Regular Breath Sounds Right: Clear Breath Sounds Left: Clear Abdominal Examination: Additional physical exam related to the proposed procedure, patient activity, disease state and treatment as pertinent: Assessment Previous complications with sedation or anesthesia?: No Airway Concerns: None Anesthesia Classification: ASA 2 Plan: Proceed with sedation for procedure Fasting Time: Time of last liquid intake: 1120 Date of Last Liquid Intake: 07/30/18 Time of last solid intake: 1900 Date of last solid intake: 07/28/18 Patient Appropriate Candidate for Planned Sedation?: Yes Jonathan Osei MD 07/30/2018 13:02 documented in this encounter Plan of Treatment Not on file documented as of this encounter Procedures Procedure Name Priority Date/Time Associated Diagnosis Comments SURGICAL PATHOLOGY Routine 07/30/2018 19 :27 EDT GLUCOSE, GLUCOMETER Routine 07/30/2018 1 2:54 EDT COLONOSCOPY PROCEDURE Routine 07/30/2018 documented in this encounter Results * SURGICAL PATHOLOGY (07/30/2018 19:27 EDT) Pathology Report: SURGICAL PATHOLOGY REPORT Reports generated via electronic interface contain original data; however they are lacking the format of the original report. Caution should be taken when reading/interpret ing unformatted reports. Name: ? DAVI NARVAEZ ? Accession #: ? [id number] ? : ? 1960 (Age: 57) ??M ? Collect Date: ? 07/30/2018 ? Location: ? ENDOP ? Receive Date: ? 07/30/2018 ? Provider: JONATHAN OSEI MD Copy to: JASON BATRES MD ? Final Pathologic Diagnosis: A. RECTUM, POLYP, BIOPSY: - ??Fragment of hyperplastic polyp with features of mucosal prolapse. Document reviewed and electronically signed by: SIVAKUMAR CHACON MD Report ??Date: 08/01/2018 14:05 By the signature above, the attending physician certifies that he/she has personally conducted a gross and/or microscopic examination of the described specimens and rendered or confirmed the above diagnosis. Specimen(s) Received: Rectum 2 mm polyp Clinical History: R/O adenoma; screening colonoscopy Gross Description: ? Received in formalin labelled with proper patient identification (initials D, S) and rectal polyp is a single flor-brown tissue fragment (0.3 x 0.2 x 0.1 cm). Submitted intact in 1. Neal Jo 07/31/2018 7:36 AM End of Report [facility] 07/30/2018 19:2 7 EDT 07/30/2018 19:27 EDT us Jonathan Osei MD PATHOLOGY ORDERABLES Final Resul t Performing Organization Address City/[facility] Co de Phone Number [facility] [address] [place] [address] * (ABNORMAL) GLUCOSE, GLUCOMETER (07/30/2018 12:54 EDT) Glucose, Fingerstick 348(H) 70 - 100 mg/dl 07/30/2018 12:55 EDT [facility] Pack Out Operator ID [id number] 07/30/2018 12:55 EDT [facility] Comment:[facility] B[facility]OD SPECIMEN / Unknown 07/30/2018 12:54 EDT 07/30/2018 12:55 EDT us Provider Chetna ROGERS CHEMISTRY & BLOOD GAS ORDERA BLES Final Result Performing Organization Address City/[facility]/ZIP Co de Phone Number [facility] [address] [place] [address] * COLONOSCOPY PROCEDURE (07/30/2018) Anatomical Region Laterality [...] procedure. ??Total sedation time was 26 ??minutes. [place] Bowel Prep Right Colon: 3 ? Transverse [...] in this record. 07/30/2018 01:35:54 PM By Jonathan Osei MD us Jonathan Osei MD GI PROCEDURE ORDERABLES Final Re sult documented in this encounter Visit Diagnoses Not on filedocumented in this encounter Administered Medications Inactive Administered Medications - up to 3 most recent administrations Medication Order MAR Action Action Date Dose Rate Site fentaNYL citrate (PF) injection 25-250 mcg 25-250 mcg, intravenous, ONCE PRN, 1 dose, Starting on Sun07/30/18 at 1238, Until Sun07/30/18 at 1320, Other, sedation, Routine, Intraprocedure Given 07/30/2018 13:20 EDT 150 mcg lactated ringers (LR) infusion 30 mL/hr, intravenous, CONTINUOUS, Starting on Sun07/30/18 at 1300, Until Sun07/30/18 at 1642, Routine, Preprocedure New Bag 07/30/2018 12:56 EDT 30 mL/hr 30 mL/hr midazolam (MDV) (VERSED) injection 1-10 mg 1-10 mg, intravenous, ONCE PRN, 1 dose, Starting on Sun07/30/18 at 1238, Until Sun07/30/18 at 1320, Sedation, Routine, Intraprocedure Given 07/30/2018 13:20 EDT 4 mg documented in this encounter Orders Medications Ordered That Matthew ht Not Have Been Administered Count Last Ordered Date First Ordered Date diphenhydrAMINE (BENADRYL) injection 25 mg 1 07/30/2018 ondansetron (PF) (ZOFRAN) injection 2-4 mg 1 07/30/2018 sodium chloride 0.9 % (flush) flush 3 mL 1 07/30/2018 Transfer Count Last Ordered Date First Orde red Date NOTIFY PPS OF DISCHARGE COMPLETE 1 07/31/19 19 Discharge Count Last Ordered Date First Orde red Date DISCHARGE PATIENT 1 07/30/2018 documented in this encounter Care Teams Washroom Attendant Relationship Specialty Start Date End Date Jason Batres MD [address] [place] [address] PCP - General 07/27/11 12/31/23 documented as of this encounter
--- OUTSIDE RECORDS SUMMARY | 2024-02-28 16:52 | XMS_ITS | Encounter Summary ---
Author Organization [facility] Address [address] [place] [address] Care Team Providers Care Heel Nail Rasper Name Role Phone Jason Batres MD Primary Care Provi margarita Encounter Details Date Type Department Care Team (Latest Contact Info) Description 05/30/2018 14:00 EDT Procedure visit [facility] Endocrinology - [address] [address] Unknown, Provider, Phlebotomy, [facility] Type 2 diabetes mellitus with hyperglycemia, with long-term current use of insulin ([facility]) (Primary Dx) Discharge Disposition: Auto Discharge Social [...] documented in this encounter Discharge Diagnoses Diagnosis E11.65 Type 2 diabetes mellitus with hyperglycemia-E11.65[ICD-10-CM] Z79.4 buttermaker continuous churn (current) use of insulin-Z79.4[ICD-10-CM] documented in this encounter Discharge Disposition Disposition Code Departure Means Destination Auto Discharge documented in this encounter Progress Notes * Vibha Carlos - 05/30/2018 1400 EDT Venipuncture preformed for HA1C, bmp, tsh Per orders of Carol Bolden Diagnosis of E11.65 250.00 I was supervised by Nicko Flores who was present and immediately available in the office suite. Vibha Carlos 05/30/2018 14:34 documented in this encounter Plan of Treatment Not on file documented as of this encounter Procedures Procedure Name Priority Date/Time Associated Diagnosis Comments TSH Routine 05/30/2018 14:34 EDT Type 2 diabetes mellitus with hyperglycemia, with long-term current use of insulin ([facility]) HEMOGLOBIN A1C Routine 05/30/2018 14:34 EDT Type 2 diabetes mellitus with hyperglycemia, with long-term current use of insulin ([facility]) BASIC METABOLIC PANEL (BMP) Routine 05/30/2018 14:34 EDT Type 2 diabetes mellitus with hyperglycemia, with long-term current use of insulin ([facility]) documented in this encounter Results * TSH (05/30/2018 14:34 EDT) TSH 4.00 0.47 - 4.68 uIU/ml 05/30/2018 19:20 EDT [facility] Comment: The results of this assay can be falsely lowered due to the consumption of Biotin. Blood specimen (specimen) BLOOD SPECIMEN / Unknown 05/30/2018 14:34 EDT 05/30/2018 18:06 EDT Yesi Marie NP CHEMISTRY & BLOOD GAS ORDER ELIU Final Result [facility] [address] [place] [address] * HEMOGLOBIN A1C (05/30/2018 14:34 EDT) Hemoglobin A1C 13.8 % 05/31/2018 10:04 EDT [facility] Comment: Reference Range: <5.7% Normal 5.7-6.4% Prediabetes =>6.5% Diagnostic for diabetes (if confirmed) Goals for glycemic control in diabetes ADA 2017 For non adults with diabetes: ?? Target <7.0% For children and adolescents with type 1 diabetes: ?? Target <7.5% More or less stringent targets may be appropriate for individual patients. Est Avg Glucose 349 mg/dl 9 10:04 EDT [facility] Comment: eAG represents the A1c result expressed as average glucose in mg/dl. Blood specimen (specimen) BLOOD SPECIMEN / Unknown 05/30/2018 14:34 EDT 05/30/2018 18:06 EDT Yesi Marie NP CHEMISTRY & BLOOD GAS ORDER ELIU Final Result Performing Organization Address City/[facility]/ZIP Co de Phone Number [facility] [address] [place] [address] * (ABNORMAL) BASIC METABOLIC PANEL (BMP) (05/30/2018 14:34 EDT) Sodium 135(L) 136 - 145 mEq/L 05/30/2018 18:48 EDT [facility] Potassium 4.5 3.5 - 5.0 mEq/L 05/30/2018 18:48 T [facility] Chloride 99 96 - 110 mEq/L 05/30/2018 18:48 T [facility] CO2 24 22 - 32 mEq/L 05/30/2018 18:48 T [facility] BUN 18 10 - 26 mg/dl 05/30/2018 18:48 EDT [facility] Creatinine 0.84 0.66 - 1.25 mg/dl 05/30/2018 18:48 EDT [facility] GFR, Calculated 98 >60 ml/min/1.7 3m2 05/30/2018 18:48 EDT [facility] Comment: eGFR calculated using CKD-EPI equation for non Americans. Multiply eGFR by 1.16 for Americans. Calcium 9.8 8.5 - 10.5 mg/dl 05/30/2018 18:48 EDT [facility] Calculated Calcium 9.4 8.5 - 10.5 mg/dl 05/30/2018 18:48 EDT [facility] Glucose, Serum 403(H) 70 - 100 mg/dl 05/30/2018 18:48 EDT [facility] Fasting? Unknown 05/30/2018 18:48 T [facility] Blood specimen (specimen) BLOOD SPECIMEN / Unknown 05/30/2018 14:34 EDT 05/30/2018 18:06 EDT Yesi Marie NP CHEMISTRY & BLOOD GAS ORDER ELIU Final Result [facility] [address] [place] [address] documented in this encounter Visit Diagnoses Diagnosis Type 2 diabetes mellitus with hyperglycemia, with long-term current use of insulin ([facility])- Primary documented in this encounter Care Teams Heel Nail Rasper Relationship Specialty Start Date End Date Jason Batres MD [address] [place] [address] PCP - General 07/27/11 12/31/23 documented as of this encounter
--- OUTSIDE RECORDS SUMMARY | 2024-02-28 16:52 | XMS_ITS | Encounter Summary ---
Author Organization [facility] Address [address] [place] [address] Care Team Providers Care Military Technology Manager Name Role Phone Jason Batres MD Primary Care Provi margarita Reason for Visit * Reason Onset Date Comments Follow-up 06/24/2018 Encounter Details Date Type Department Care Team (Late st Contact Info) Description 06/24/2018 Telephone [facility] Foot & Ankle Program - [address] [address] Angelina Gonzales, [facility] [address] [place] [address] Follow-up Social History Tobacco Use Types Packs/Day Years [...] Telephone Encounter - Angelina Gonzales DPM - 06/24/2018 0853 EDT Left message for Jeff this morning to see how his foot was doing, and if he was able to replace the offloading insole in his boot. Called to discuss other options for offloading if he couldn't replace the insole. Left my callback number, and he has a follow up appointment with me on 07/09. documented in this encounter Plan of Treatment Not on file documented as of this encounter Visit Diagnoses Not on filedocumented in this encounter Care Teams Military Technology Manager Relationship Specialty Start Date End Date Jason Batres MD [address] [place] [id number] PCP - General 07/27/11 12/31/23 documented as of this encounter
--- OUTSIDE RECORDS SUMMARY | 2024-02-28 16:52 | XMS_ITS | Encounter Summary ---
Author Organization [facility] Address [address] [place] [address] Care Team Providers Care Garland Machine Operator Name Role Phone Jason Batres MD Primary Care Provi margarita Reason for Visit * Reason Comments Foot Problem Encounter Details Date Type Department Care Team (Late st Contact Info) Description 05/09/2018 9:45 EST Office Visit [facility] Foot & Ankle Program - [address] [address] Angelina Gonzales [facility] [address] [place] [address] Ulcer of foot, right, with fat layer exposed ([facility]) (Primary Dx); Status post amputation of toe of right foot ([facility]); Type 2 diabetes mellitus with diabetic polyneuropathy, [...] in this encounter Progress Notes * Christian Engel, Angelina M - 05/09/2018 0968 EST Jeff Scott is a very pleasant 57 y.o. male patient who presents for follow up right foot ulcer submetatarsal head 2, chronic. Reports that he has been wearing his boot more. He remembers to wear it most of the time. He is still been at work and has been hoping with [employer]. 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 He has been on his feet a lot still. He has been doing the daily dressing changes. Overall he is feeling well today and denies any nausea, vomiting, fever, chills. He denies any pain in the foot. Patient Active Problem List Diagnosis Date Noted ??? Acute osteomyelitis of phalanx of foot ([facility]) 03/23/2016 Priority: Medium ??? Hypothyroidism 01/22/2013 Priority: Medium ??? Osteoarthritis of left hip 07/06/2014 ??? 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 Arthritis ??? Back pain ??? Diabetes mellitus ([facility]) ??? Hypothyroidism ??? Wears glasses Past Surgical [...] (FREESTYLE TEST) test strips 1 Strip by [facility] (non-drug; combo route) route 2 times daily [...] skin dailywith dinner. 36 mL 3 ??? insulin pen needles 31G [...] Ulcer plantar forefoot submetatarsal head 2. ??Measures 10 x 10 x 5??mm. ??Surrounding hyperkeratotic tissue and macerated tissue. Granular wound base. ??No probe to bone, but [...] PLAN: Mr. Scott presents today for follow-up submetatarsal head 2 ulcer, chronic. This is slightly improved in appearance since last visit. He has still been on his foot too much. 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 I wrote a note for work, to limit how much he is at work and to limit how much he is on his foot. We discussed the importance of this and risk of amputation if he continues to be on the foot too much. He is going to continue with daily dressing changes. I am going to see him back in 3 weeks. He knows to call before thenif any problems arise this plan. Portions of this document have been prepared with speech recognition software or keyboard digital data analyst techniques. Minor irregularities or keyboarding [...] long-term current use of insulin ([facility]) documented in this encounter Care Teams Garland Machine Operator Relationship Specialty Start Date End Date Jason Batres MD [address] [place] [id number] PCP - General 07/27/11 12/31/23 documented as of this encounter
--- OUTSIDE RECORDS SUMMARY | 2024-02-28 16:52 | XMS_ITS | Encounter Summary ---
Author Organization [facility] Address [address] [place] [address] Care Team Providers Care Coding Specialist Home Health Name Role Phone Jason Batres MD Primary Care Provi margarita Reason for Visit * Reason Comments Foot Problem Encounter Details Date Type Department Care Team (Late st Contact Info) Description 08/21/2018 8:00 EDT Office Visit [facility] Foot & Ankle Program - [address] [address] Angelina Gonzales [facility] [address] [place] [address] Ulcer of foot, right, with fat layer exposed ([facility]) (Primary Dx); Type 2 diabetes mellitus with diabetic polyneuropathy, with long-term current use of insulin ([facility]); Status post amputation of toe of right foot ([facility]) Social History Tobacco [...] Notes * Christian Dpm, Angelina M - 08/21/2018 0800 EDT Jeff Scott is a very pleasant 57 y.o. male patient who presents for follow up chronic right footulcer. He reports that he has been staying out of work. He has been wearing the boot as much as he can. He does admit to being on his foot a lot still, however. He has been doing the dressing changes. He has not noticed any signs of infection. Overall he is feeling well and denies any nausea, vomiti ng, fever, chills. Patient Active Problem List Diagnosis Date Noted ??? Hyperplastic polyp of descending colon 08/01/2018 Priority: Medium ??? Type 2 diabetes mellitus with diabetic polyneuropathy, with long-term current use of insulin ([facility]) 06/24/2018 Priority: Medium ??? Acute osteomyelitis of phalanx of foot ([facility]) 03/23/2016 Priority: Medium ??? Hypothyroidism 01/22/2013 Priority: Medium ??? Osteoarthritis of left hip 07/06/2014 ??? 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 Arthritis ??? Back pain ??? Diabetes mellitus ([facility]) ??? Hypothyroidism ??? Wears glasses Past [...] head 2. ??Measures 8 x 7 x 8??mm. ??Surrounding hyperkeratotic tissue and macerated tissue.??Granular wound base. ??No probe to bone, but doesprobe deep. ??No surrounding erythema or edema. ??No pain on palpation or probing. ??No malodor. ??No necrosis. No??drainage. ??MMT??5 out of 5. ??Gross protective sensation diminished, absent to forefoot. ?? ASSESSMENT: 1. Ulcer of foot, right, with fat layer exposed ([facility]) 2. Type 2 diabetes mellitus with diabetic polyneuropathy, with long-term current use of insulin ([facility]) 3. Status post amputation of toe of right foot ([facility]) No orders of the defined types were placed in this encounter. PLAN: Mr. Scott presents today for follow-up chronic right foot ulcer submetatarsal head 2. This is slightly improved in size since last visit. No signs of infection. I debrided this today, skin and subcutaneous tissue, less than 20 cm??. We discussed treatment options going forward. If this does not continue to improve at a reasonable rate, we discussed other offloading options including a total contact cast versus nonweightbearing with a knee scooter. He does not feel comfortable with a knee scooter and does not think this would be practical given his gravel driveway and mobility with a knee scooter. He is going to consider a cast. We discussed he will not be able to drive with the cast on and we discussed showering another expectations with the cast. He is going to consider this and discuss it with his . We will further discuss it as follow-up appointment. I encouraged him to stay off the foot more, as he has still been too active. He is going to continue with the dressing changes. Ayden going to see him back in 2 to 3 weeks. He knows to call before then if any problems arise and ishappy with this plan. Portions of this document have been prepared with speech recognition software or keyboard ms access database developer techniques. Minor irregularities or keyboarding misprints may be present documented in this encounter Plan of Treatment Not on file documented as of this encounter Visit Diagnoses Diagnosis Ulcer of foot, right, with fat layer exposed ([facility])- Primary Type 2 diabetes mellitus with diabetic polyneuropathy, with long-term current use of insulin ([facility]) Status post amputation of toe of right foot ([facility]) Lower limb amputation, other toe(s) documented in this encounter Care Teams Coding Specialist Home Health Relationship Specialty Start Date End Date Jason Batres MD [address] [place] [address] PCP - General 07/27/11 12/31/23 documented as of this encounter
--- OUTSIDE RECORDS SUMMARY | 2024-02-28 16:52 | XMS_ITS | Encounter Summary ---
Author Organization [facility] Address [address] [place] [address] Care Team Providers Care Assembler Lay Ups Name Role Phone Jason Batres MD Primary Care Provi margarita Reason for Visit * Reason Comments Foot Problem Encounter Details Date Type Department Care Team (Late st Contact Info) Description 07/25/2018 11:00 EDT Office Visit [facility] Foot & Ankle Program - [address] [address] Angelina Gonzales [address] [place] [address] Ulcer of foot, right, with [...] Notes * Christian Dpm, Angelina M - 07/25/2018 1100 EDT Jeff Scott is a very pleasant 57 y.o. male patient who presents for follow up chronic right footulcer submetatarsal head 2. He reports that he has been staying out of work for the most part. He has been wearing the offloading boot. He has been very comfortable in the boot, as this gives him good pain relief. He has been doing the dressing changes and believes that the wound is improving. Overall he is feeling well today and denies any nausea, vomiting, fever, chills. Patient Active Problem List Diagnosis Date Noted ??? Type 2 diabetes mellitus with diabetic polyneuropathy, with long-term current use of insulin ([facility]) 06/24/2018 Priority: Medium ??? Acute osteomyelitis of phalanx of foot ([facility]) 03/23/2016 Priority: Medium ??? Hypothyroidism 01/22/2013 Priority: Medium ??? Osteoarthritis of left hip 07/06/2014 ??? 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 Arthritis ??? Back pain ??? Diabetes mellitus ([facility]) ??? Hypothyroidism ??? Wears glasses Past [...] TWICE DAILY (Patient not taking: Reported on 07/23/2018) 180 tablet 2 ??? ibuprofen (MOTRIN) 200 [...] forefoot submetatarsal head 2. ??Measures 10 x 7 x 8??mm. ??Surrounding hyperkeratotic tissue [...] cm??, with a 15 blade. This has improved since last visit. I commended him on his wearing the walking boot and is limiting activity. I encouraged him to continue to do so. He is going to continue with the dressing changes. He is going to continue on the offloading boot. I am going to see him back in 3 weeks. He knows to call before then if any problems arise and is happy with this plan. Portions of this document have been prepared with speech recognition software or keyboard data processing auditor techniques. Minor irregularities or keyboarding misprints may [...] current use of insulin ([facility]) documented in this encounter Care Teams Assembler Lay Ups Relationship Specialty Start Date End Date Jason Batres MD [address] [place] [id number] PCP - General 07/27/11 12/31/23 documented as of this encounter
--- OUTSIDE RECORDS SUMMARY | 2024-02-28 16:52 | XMS_ITS | Encounter Summary ---
Author Organization [facility] Address [address] [place] [address] Care Team Providers Care Head Sawyer Automatic Name Role Phone Jason Batres MD Primary Care Provi margarita Reason for Visit * Reason Comments Foot Problem Encounter Details Date Type Department Care Team (Late st Contact Info) Description 04/15/2018 13:30 EST Office Visit [facility] Foot & Ankle Program - [address] [address] Angelina Gonzales [facility] [address] [place] [address] Ulcer of foot, right, with fat layer exposed ([facility]) (Primary Dx); Type 2 diabetes mellitus with diabetic polyneuropathy, with long-term current use of insulin ([facility]); Status post amputation of toe of right foot ([facility]) Social History Tobacco Use Types Packs/Day Years [...] Progress Notes * Angelina Gonzales, DPM - 04/15/2018 1330 EST Jeff Scott is a very pleasant 57 y.o. male patient who presents for follow up chronic right footulcer submetatarsal head 2. Reports that he has been on his feet more at work. 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 He has not been wearing the boot much due to the ice. He has had some increased pain in the foot. He has been changing the dressing daily. He has not noticed any signs of infection or any increased drainage. Overall he is feeling well today and denies any nausea, vomiting, fever, chills. Patient Active Problem List Diagnosis Date Noted ??? Acute osteomyelitis of phalanx of foot ([facility]) 03/23/2016 Priority: Medium ??? Hypothyroidism 01/22/2013 Priority: Medium ??? Osteoarthritis of left hip 07/06/2014 ??? 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 Arthritis ??? Back pain ??? Diabetes mellitus ([facility]) ??? Hypothyroidism ??? Wears glasses [...] forefoot submetatarsal head 2. ??Measures 15 x 8 x 5??mm. ??Surrounding hyperkeratotic tissue and [...] foot ulcer submetatarsal head 2. I debrided the wound,skin and subcutaneous tissue, less than 20 cm??, with a 15 blade. This has increased in size, both length, width, as well as depth. No signs of infection today. We discussed these findings. He has been on his foot too much. A advised him to stay out of work for the next month to properly offload this and allow it to heal. A note was written for work. We discussed risks if this gets any deeper andlarger including infection and bone involvement, which would require possible amputation. We had a long discussion regarding the importance of this. He is going to stay out of work for the next month. He is going to wear the boot at all times. We reviewed dressing change instructions including packing the wound with a wet-to-dry dressing. I gave him some more supplies today. I am going to see himback in 3 weeks. He knows to call before then if any problems arise and is happy with this plan. Portions of this document have been prepared with speech recognition software or keyboard data software engineer techniques. Minor irregularities or keyboarding misprints may be present documented in this encounter Plan of Treatment Not on file documented as of this encounter Visit Diagnoses Diagnosis Ulcer of foot, right, with fat layer exposed ([facility])- Primary Type 2 diabetes mellitus with diabetic polyneuropathy, with long-term current use of insulin ([facility]) Status post amputation of toe of right foot ([facility]) Lower limb amputation, other toe(s) documented in this encounter Care Teams Head Sawyer Automatic Relationship Specialty Start Date End Date Jason Batres MD [address] [place] [address] PCP - General 07/27/11 12/31/23 documented as of this encounter
--- OUTSIDE RECORDS SUMMARY | 2024-02-28 16:52 | XMS_ITS | Encounter Summary ---
Author Organization Health system Address [address] [place] [address] Care Team Providers Care Estate Manager Name Role Phone Jason Batres MD Primary Care Provi margariat Reason for Visit * Reason Onset Date Comments Appointment Related 06/18/2019 Encounter Details Date Type Department Care Team (Late st Contact Info) Description 06/18/2019 Telephone Jason Batres [facility] [address] [place], [place] [phone] Jason Batres MD [address] [place] [address] Appointment Related Social History Tobacco [...] * Telephone Encounter - Keyla Rhodes - 06/18/2019 1413 EDT LVM to Nguyen's phone that we are not seeing pts in office and it would be a telemedicine visit and did she want to set up one of those visits. * Telephone Encounter - Mena Gomez - 06/18/2019 1406 EDT Call from pt's Nguyen. She is concerned that pt may not be taking his meds and not taking care of himself. She is requesting that we can him to set up an appt and send him a letter with the date/time. Mena Gomez MA documented in this encounter Plan of Treatment Not on file documented as of this encounter Visit Diagnoses Not on filedocumented in this encounter Care Teams Estate Manager Relationship Specialty Start Date End Date Jason Batres MD [address] [place] [id number] PCP - General 07/27/11 12/31/23 documented as of this encounter
--- OUTSIDE RECORDS SUMMARY | 2024-02-28 16:52 | XMS_ITS | Encounter Summary ---
Author Organization [facility] Address [address] [place] [address] Care Team Providers Care Distributed Energy Systems Consultant Name Role Phone Jason Batres MD Primary Care Provi margarita Reason for Visit * Reason Comments Community Health Team Encounter Details Date Type Department Care Team (Late st Contact Info) Description 07/10/2018 Community Health Team Jason Batres MD, PC [address] [place], [place] [address] Odette Hector, [facility] [address] [place] [address] Social History Tobacco Use Types Packs/Day Years [...] Progress Notes * Odette Hector LICSW - 07/10/2018 1034 EDT Jeff did not show for SW appointment. Phoned to check in. LVM inviting him to call [phone] if interested [address]uling. Dr. Batres Total Time: 5 min JG Ray documented in this encounter Plan of Treatment Not on file documented as of this encounter Visit Diagnoses Not on filedocumented in this encounter Care Teams Distributed Energy Systems Consultant Relationship Specialty Start Date End Date Jason Batres MD [address] [place] [id number] PCP - General 07/27/11 12/31/23 documented as of this encounter
--- OUTSIDE RECORDS SUMMARY | 2024-02-28 16:52 | XMS_ITS | Encounter Summary ---
Author Organization [facility] Address [address] [place] [address] Care Team Providers Care Sifting Operator Name Role Phone Jason Batres MD Primary Care Provi margarita Reason for Visit * Reason Comments Follow-up Encounter Details Date Type Department Care Team (Late st Contact Info) Description 07/23/2018 9:30 EDT Office Visit Jason Batres MD, PC [address] [place], [place] [id number] Jason Batres MD [address] [place] [address] Type 2 diabetes mellitus without complication, without long-term current use of insulin (HCC) (Primary Dx); Reactive depression; Acute osteomyelitis of phalanx of right foot [...] Sign Reading Time Taken Comments Blood Pressure 138/80 07/23/2018 0930 EDT Pulse 97 07/23/2018 0930 EDT Temperature 36.6 ??C (97.9 ??F) 07/23/2018929 EDT Respiratory Rate - - Oxygen Saturation 98% 07/23/2018929 EDT Inhaled Oxygen Concentration - - Weight [...] * Patient Instructions* Jason Batres MD - 07/23/2018 9:30 EDT Call Odette at [phone] to reschedule the meeting. Stay off the metformin documented in this encounter Progress Notes * Jason Batres MD - 07/23/2018929 EDT Subjective: Patient ID: Jeff Scott is an 57 y.o. male. Chief Complaint Patient presents with ??? Follow-up Diabetes Pertinent negatives for diabetes include no chest pain. Diarrhea Jeff is here for a diabetic follow-up. We discussed his bowels, at his last visit I stopped his metformin due to loose stools. He also is scheduled for a colonoscopy next week. He feels the bowels are better- they are not as loose. He has no blood, no mucus. He is not going to the bathroom as often as he was before. I reviewed his foot ulcer- it was getting larger so Dr. Gonzales had him wear the walking boot 100% ofthe time and not work. He tells me he has been compliant with this and when he packs the wound now he is using less guaze so he thinks it is getting smaller. He sees Dr. Gonzales next week. He has gone on some half a mile walks but wears the boot when he does this. 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 He is not able to remember things and his life has changed drastically. I referred him to the T but he missed that appointment. He feels bad about that but says he will call again. He says he gets emotional when he talks to his sons, but overall he thinks his mood is doing well. Social Current Outpatient Medications on File Prior to Visit Medication Sig Dispense Refill ??? atorvastatin (LIPITOR) [...] 180 tablet 2 No current facility-administered medications on file prior to visit. No Known Allergies Review of Systems Respiratory: Negative for shortness of breath. Cardiovascular: Negative for chest pain. Gastrointestinal: Positive for diarrhea. - See HPI Objective: BP 138/80 Pulse 97 Temp 36.6 ??C (97.9 ??F) SpO2 98% Physical Exam Constitutional: He is oriented to person, place, and time. He appears well- developed and well-nourished. No distress. Neck: No carotid bruits Cardiovascular: Normal rate, regular rhythm and normal heart sounds. No murmur heard. Pulmonary/Chest: Effort normal and breath sounds normal. Neurological: He is alert and oriented to person, place, and time. Psychiatric: He has a normal mood and affect. Assessment: Plan: There are no diagnoses linked to this encounter. 1. Diabetes He will continue with the bydureon, 70 units of basaglar, and 40 units of humalog- we discussed ways to try to remember to take his insulin Continue lipitor His goal is to have hip surgery His brother can be a big help and will come to visits with Jeff. 2. Diabetic foot ulcer Continue with care as per podiatry and we talked about checking his foot daily. He is complying with staying off the foot since he last saw Dr. Gonzales- he has an upcoming appointment. 3. Depression He will call to reschedule this appointment. 4. Diarrhea Stay off metformin -his stools are better without this. He has a colonoscopy scheduled and will keep this- we discussed what to expect on that day. follow up here in two months- he has this scheduled I spent 30 minutes of face-face time with the patient, over half of it was in counseling Jason Batres MD documented in this encounter Plan of Treatment Not on file documented as of this encounter Visit Diagnoses Diagnosis Type 2 diabetes mellitus without complication, without long-term current use of insulin (HCC)- Primary Reactive depression Dysthymic disorder Acute osteomyelitis of phalanx of right foot (HCC-CMS) documented in this encounter Care Teams Sifting Operator Relationship Specialty Start Date End Date Jason Batres MD [address] [place] [id number] PCP - General 07/27/11 12/31/23 documented as of this encounter
--- OUTSIDE RECORDS SUMMARY | 2024-02-28 16:52 | XMS_ITS | Encounter Summary ---
Author Organization [facility] Address [address] [place] [address] Care Team Providers Care Tobacco Stripper Hand Name Role Phone Jason Batres MD Primary Care Provi margarita Reason for Referral * Consult (Routine) - Authorization Not Required Specialty Diagnoses / Procedures Referred By Eddie crocker Referred To Contact Diagnoses Reactive depression Jason Batres MD Phone: tel: fax: Referral ID Status Reason Start Date Expiration Date Visits Requested Visits Authorized [id number] Authorization Not Required Specialty Services Required 9 1 1 Question Answer What areas would you like the CHT to focus on? Tobacco Roller If Yes to Tobacco Roller, Please Select from the Following: Connecting to Community Therapist What goals would you like the patient to meet? depressoin since memory loss from brain surgery - loss of some independence, strained relationship with his Patient's Weight (kg) (1 lb = 0.4536 kg): 122 Comments As we discussed in your visit today, someone will be contacting you from the Community Health Team to schedule an appointment with you. If you do not hear from the CHT within a week please call the Community Health Team at [phone]. * Referral (Routine/Next Available) - Specialty Report Received Specialty Diagnoses / Procedures Referred By Eddie crocker Referred To Contact Diagnoses Colon cancer screening Procedures COLONOSCOPY REQUEST Jason Batres MD Phone: tel: fax: Referral ID Status Reason Start Date Expiration Date V isits Requested Visits Authorized [id number] Specialty Report Received 06/30/2018 1 1 Reason for Visit * Reason Comments Diabetes Checks FS ~3x per we ek in AM: 180s, 190s, 200+ Diarrhea Episodes of loose st ools and Encounter Details Date Type Department Care Team (Late st Contact Info) Description 06/25/2018 14:30 EDT Office Visit Jason Batres MD, PC [address] [place] [address] Jason Batres MD [address] [place] [phone] Colon cancer screening (Primary Dx); Reactive depression Social History Tobacco Use Types Packs/Day Years [...] Sign Reading Time Taken Comments Blood Pressure 130/80 06/25/2018 1425 EDT Pulse 86 06/25/2018 1425 EDT Temperature 36.4 ??C (97.5 ??F) 06/25/2018 1425 EDT Respiratory Rate - - Oxygen Saturation 96% 06/25/2018 1425 EDT Inhaled Oxygen Concentration - - Weight 122 kg (269 lb) 06/25/2018 1425 EDT Height - - Body Mass Index 34.52 05/30/2018 1329 EDT documented in this encounter Functional Status [...] * Patient Instructions* Jason Batres MD - 06/25/2018 14:30 EDT 1. Take the lantus every morning 2. Put your novolog near your TV remote to take with dinner 3. I will set up a colonoscopy 4. Stop your metformin pill - it could cause your diarrhea 5. If you get your A1C (sugar) lower- you can have the hip surgery 6. I will contact our social media senior associate about talking to a therapist documented in this encounter Progress Notes * Jason Batres MD - 06/25/2018 1430 EDT Subjective: Patient ID: Jeff Scott is an 57 y.o. male. Chief Complaint Patient presents with ??? Diabetes Checks FS ~3x per week in AM: 180s, 190s, 200+ ??? Diarrhea Episodes of loose stools and Diabetes Pertinent negatives for diabetes include no chest pain. Weston Aguilar is here with his brother for a diabetic follow-up. I also received a note from his aboutsome of his self care. Apparently he has had episodes of loose stools or even fecal incontinence. Jeff did bring this up and says he has a sudden urge and cannot make it to the bathroom in time. He is on metforin so we discussed stopping this as a first step due to the loose stools.He also is due for a colonoscopy which we can get scheduled and perhaps some biopsies. We also discussed his diabetes. His A1C is unfortunately high at 13.8. He is trying to remember hisinsulin but has a hard time with this. Endocrine discussed with him keeping his novolog near a TV remote so he remembers it and he will try to do this. His brother says his family is not available tohelp him remember to take his insulin. HIS relationship with his is very strained and as he has said in the past they are more roommates. It is easier for him to take his lantus in the AM so he is working on this. His big goal is to be able to have a hip surgery as he has hip pain and he knows he needs to get his A1C down to have this. 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 He is not able to remember things and his life has changed drastically. He would like to talk to someone about this. He can talk with his brother but asked about a therapist. He continues to see Dr. Gonzales and his foot ulcer is getting much better. He has been more active atwork and also uses the [employer] boot but not all the time. He has not been great about staying off, but is working less hours overall. Social Current Outpatient Medications on File Prior [...] for diarrhea. - See HPI Objective: BP 130/80 Pulse 86 Temp 36.4 ??C (97.5 ??F) (Tympanic) Wt (!) 122 kg (269 lb) SpO2 96% BMI 34.52 kg/m?? Physical Exam Constitutional: He is oriented to [...] diagnoses linked to this encounter. 1. Diabetes I spent 30 minutes with Jeff counseling on his diabetes and diet changes His A1C is still high. He will continue with the bydureon, 70 [...] we talked about checking his foot daily. 3. Depression I will contact the CHT about a therapist. 4. Diarrhea Stop metformin - may be causing diarrhea and we could increase insulin instead. Due for colonoscopy as he has not had one over 50 so I will order. follow up here in three months I spent 30 minutes of face-face time with the patient, over half of it was in counseling Jason Batres MD documented in this encounter Plan of Treatment Scheduled Orders Name Type Priority Associated Diagnoses Orde r Schedule COLONOSCOPY REQUEST GI Routine Colon cancer screening Ordered: 06/30/2018 Scheduled Referrals Name Type Priority Associated Diagnoses Orde r Schedule AMB CONS/FOLLOW UP [facility]ITY [facility] TEAM Outpatient Referral Routine Reactive depression Ordered: 06/30/2018 documented as of this encounter Visit Diagnoses Diagnosis Colon cancer screening- Primary Special screening for malignant neoplasms, colon Reactive depression Dysthymic disorder documented in this encounter Care Teams Tobacco Stripper Hand Relationship Specialty Start Date End Date Jason Batres MD [address] [place] [address] PCP - General 07/27/11 12/31/23 documented as of this encounter
--- OUTSIDE RECORDS SUMMARY | 2024-02-28 16:52 | XMS_ITS | Encounter Summary ---
Author Organization [facility] Address [address] [place] [address] Care Team Providers Care Evening Or Night Nurse Supervisor Name Role Phone Jason Batres MD Primary Care Provi margarita Reason for Visit * Reason Comments Follow-up Encounter Details Date Type Department Care Team (Late st Contact Info) Description 03/28/2018 13:00 EST Office Visit Jason Batres MD, PC [address] [place], [place] [phone] Jason Batres MD [address] [place] [phone] Type 2 diabetes mellitus without complication, with long-term current use of insulin ([facility]) (Primary Dx) Social History Tobacco Use [...] Sign Reading Time Taken Comments Blood Pressure 146/80 03/28/2018 1258 EST Pulse 110 03/28/2018 1258 EST Temperature 36.6 ??C (97.9 ??F) 03/28/2018 1258 EST Respiratory Rate - - Oxygen Saturation 97% 03/28/2018 1258 EST Inhaled Oxygen Concentration - - Weight 124.7 kg (275 lb) 03/28/2018 1258 EST Height - - Body Mass Index 35.31 03/14/2018 0900 EST documented in this encounter Functional Status [...] * Patient Instructions* Jason Batres MD - 03/28/2018 13:00 EST 1. I will contact [facility] to reconnect the two of you - and ask for an afternoon appointment. 2. The A1C is down from 12.2 to 12.0 which is lower. I actually checked it to soon, because Fátima Marie checked it two weeks ago - so it is fine that it is jut a little lower. 3. I will start atorvastatin (LIpitor) 20 mg which is a cholesterol reducing medication. You feel fine, but people with diabetes, should have the cholesterol levels very low- to help prevent stroke, heart attack. Most people do fine, but let me know if you have increased muscle aches. documented in this encounter Ordered Prescriptions Prescription Sig Dispense Quantity Refills Last Filled Start Date End Date atorvastatin (LIPITOR) 20 mg tablet Take 1 Tab by mouth daily. 90 Tab 3 03/28/2018 09/01/2019 documented in this encounter Progress Notes * Jason Batres MD - 03/28/2018 1300 EST Subjective: Patient ID: Jeff Scott is an 57 y.o. male. Chief Complaint Patient presents with ??? Follow-up Diabetes Pertinent negatives for diabetes include no chest pain. Jeff is here for a diabetic follow-up. He continues to see endocrinology and is now on weekly Bydureon as well as Basaglar. The long acting insulin is stable at 70 units but he saw Fátima Marie recently and she increased his humalog with dinner to 40 units. He says he takes these 95% of the time, he very rarely misses it. His FS have been running mostly around 160-180, with highs into the low 200's and sometimes down to 140. We discussed his diet again. He has stopped high test soda and now only drinks diet. He has hot chocolate on occasion. He continues to see Dr. Gonzales and his foot ulcer is getting much better. He has been more active atwork and also uses the LMN-1 boot but not all the time. He has not been great about staying off, but is working less hours overall. Jeff was teraful today in discussing his memory issues at his last visit so today I asked about depression and he says it sometimes gets him down but overall he is happy. We discussed his lipids and he is OK with taking a statin. Social Current Outpatient Medications on File Prior to Visit Medication Sig Dispense Refill ??? blood glucose [...] 3 ??? insulin pen needles 31G x /16 Use 1 pen needle as directed daily. [...] 180 Tab 3 No current facility-administered medications on file prior to visit. No Known Allergies Review of Systems Respiratory: Negative for shortness of breath. Cardiovascular: Negative for chest pain. - See HPI Objective: BP (!) 146/80 Pulse (!) 110 Temp 36.6 ??C (97.9 ??F) Wt (!) 124.7 kg (275 lb) SpO2 97% BMI 35.31 kg/m?? Physical Exam Constitutional: He is oriented [...] a normal mood and affect. Assessment: Plan: Jeff was seen today for follow-up. Diagnoses and all orders for this visit: Type 2 diabetes mellitus without complication, with long-term current use of insulin ([facility]) - POCT HEMOGLOBIN A1C Other orders - atorvastatin (LIPITOR) 20 mg tablet; Take 1 Tab by mouth daily. 1. Diabetes I spent 30 minutes with Jeff counseling on his diabetes and diet changes His A1C is coming down slowly. We checked today which was a mistake and too early, but he was pleased it is going down. He will continue with the bydureon, 70 units of basaglar, and 40 units of humalog He will call T again to meet with Yael- he says he just missed an appointment. Start lipitor - this was called in. He thinks he could try to bring his brother, Terry, to his visits so that eTrry can help him some with med management, although probably not every visit- he just did not ask Terry since his last visit. 2. Diabetic foot ulcer Continue with care as per podiatry and we talked about checking his foot daily. 3. Depression Jeff seems OK overall so will hold on any SSRI. follow up here in three months I spent 30 minutes of face-face time with the patient, over half of it was in counseling Jason Batres MD documented in this encounter Plan of Treatment Not on file documented as of this encounter Procedures Procedure Name Priority Date/Time Associated Diagnosis Comments POCT HEMOGLOBIN A1C Routine 03/28/2018 1 3:12 EST Type 2 diabetes mellitus without complication, with long-term current use of insulin ([facility]) documented in this encounter Results * (ABNORMAL) POCT HEMOGLOBIN A1C (03/28/2018 13:12 EST) Hemoglobin A1c, POC 12.0(A) <=5.7 % DUARTE BROWN 03/28/2018 13:1 2 EST Jason Batres MD POINT OF CARE TEST ORDERABLES Final Result DUARTE BROWN [address] [place] [address] documented in this encounter Visit Diagnoses Diagnosis Type 2 diabetes mellitus without complication, with long-term current use of insulin ([facility])- Primary documented in this encounter Care Teams Evening Or Night Nurse Supervisor Relationship Specialty Start Date End Date Jason Batres MD [address] [place] [id number] PCP - General 07/27/11 12/31/23 documented as of this encounter
--- OUTSIDE RECORDS SUMMARY | 2024-02-28 16:52 | XMS_ITS | Encounter Summary ---
Author Organization [facility] Address [address] [place] [address] Care Team Providers Care Coat Padder Name Role Phone Jason Batres MD Primary Care Provi margarita Reason for Visit * Reason Comments Foot Problem Encounter Details Date Type Department Care Team (Late st Contact Info) Description 03/01/2018 10:30 EST Office Visit [facility] - [address] [address] Angelina Gonzales [facility] [address] [place] [address] Ulcer of foot, right, with fat layer exposed ([facility]) (Primary Dx); Type 2 diabetes mellitus with diabetic polyneuropathy, with long-term current use of insulin (HCC-CMS); Status post amputation of lesser toe, right ([facility]) Social History [...] Progress Notes * Angelina Gonzales, DPM - 03/01/2018 1030 EST Jeff Scott is a very pleasant 57 y.o. male patient who presents for follow up chronic right footulcer. He reports that he has been doing well. He believes the ulcer continues to do well. He has not had any pain in the foot. He has not noticed any signs of infection. Overall he is feeling well denies any nausea, vomiting, fever, chills. Patient Active Problem List Diagnosis Date Noted ??? Acute osteomyelitis of phalanx of foot ([facility]) 03/23/2016 Priority: Medium ??? Hypothyroidism 01/22/2013 Priority: Medium ??? Osteoarthritis of left hip 07/06/2014 ??? 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 Arthritis ??? Back pain ??? Diabetes mellitus ([facility]) ??? Hypothyroidism ??? Wears glasses Past [...] Ulcer plantar forefoot submetatarsal head 2. ??Measures 5 x 3 x 2??mm. ??Surrounding hyperkeratotic tissue- mild. Granular wound base. ??No [...] insulin (HCC-CMS) 3. Status post amputation of lesser toe, right (HCC-CMS) No orders of the defined types were placed in this encounter. PLAN: Mr. Scott presents today for follow-up right foot ulcer, chronic, submetatarsal head 2. This remains the same in terms of size but is slightly less deep. No signs of infection today. I did debride the wound, skin and subcutaneous tissue, less than 20 cm??. He is going to continue with the daily dressing changes. He is going to continue to limit his activity. He has been on this too much. I encouraged him to wear his boot more. I am going to see him back in approximately 3 weeks. He knows to call before then if any problems arise and is happy with this plan. ?? Portions of this document have been prepared with speech recognition software or keyboard data conversion analyst techniques. Minor irregularities or keyboarding misprints may be present documented in this encounter Plan of Treatment Not on file documented as of this encounter Visit Diagnoses Diagnosis Ulcer of foot, right, with fat layer exposed (HCC-CMS)- Primary Type 2 diabetes mellitus with diabetic polyneuropathy, with long-term current use of insulin ([facility]) Status post amputation of lesser toe, right ([facility]) documented in this encounter Care Teams Coat Padder Relationship Specialty Start Date End Date Jason Batres MD [address] [place] [address] PCP - General 07/27/11 12/31/23 documented as of this encounter
--- OUTSIDE RECORDS SUMMARY | 2024-02-28 16:52 | XMS_ITS | Encounter Summary ---
Author Organization [facility] Address [address] [place] [address] Care Team Providers Care Advanced Quality Engineer Name Role Phone Jason Batres MD Primary Care Provi margarita Reason for Visit * Reason Comments Follow-up Encounter Details Date Type Department Care Team (Late st Contact Info) Description 09/23/2018 9:30 EDT Office Visit Jason Batres MD, [facility] [address], [place] [phone] Jason Batres MD [address] [place] [address] Type 2 diabetes mellitus with diabetic polyneuropathy, without long-term current use of insulin ([facility]) (Primary Dx) Social History Tobacco Use [...] Sign Reading Time Taken Comments Blood Pressure 120/70 09/23/2018 0928 EDT Pulse 93 09/23/2018 0928 EDT Temperature 36.6 ??C (97.8 ??F) 09/23/2018927 EDT Respiratory Rate - - Oxygen Saturation 96% 09/23/2018927 EDT Inhaled Oxygen Concentration - - Weight 119.3 kg (263 lb) 09/23/2018927 EDT Height - - Body Mass Index 33.77 07/30/2018 1239 EDT documented in this encounter [...] * Patient Instructions* Jason Batres MD - 09/23/2018 9:30 EDT Change the basaglar to taking it in the afternoon or early evening when you get home from work Still take the humalog with dinner Take the Bydureon once per week You can keep the pen you are using out of the fridge Ask your waste library manager about the sharps- I think they can go in a heavy container, that is closed, then the dump You can put the old metformin in in the garbaage documented in this encounter Progress Notes * Jason Batres MD - 09/23/2018 0930 EDT Subjective: Patient ID: Jeff Scott is an 57 y.o. male. Chief Complaint Patient presents with ??? Follow-up Diabetes Pertinent negatives for diabetes include no chest pain. Weston Aguilar is here for a diabetic follow-up. Unfortunately, his A1C today is still greater than 14. He tells me he almost always remembers his weekly bydureon as well as his short acting humalog, but he often forgets his basaglar. He usually takes this in the morning and says he is busy getting ready for work so will forget it. HE thinks it would be easier to take in the afternoon after he gets home from work as he would have more time. He had questions about disposing of medications and sharps. He is happy that his diabetic foot ulcer is getting better. It is much smaller as he has been staying off it, only working for 1-2 hours instead of 6-7. He may work longer but does not do as many physical things. We also reviewed his recent colonoscopy which showed a hyperplastic polyp only. He had many questions about the procedure. He feels his bowels are not normal, still loose- but they are much better off the metformin. We were not able to discuss his depression today but he does seem to be more animated and engaged today. Social Current Outpatient Medications on File Prior [...] 90 tablet 1 No current facility-administered medications on file prior to visit. No Known Allergies Review of Systems Respiratory: Negative for shortness of breath. Cardiovascular: Negative for chest pain. Gastrointestinal: Positive for diarrhea. - See HPI Objective: BP 120/70 Pulse 93 Temp 36.6 ??C (97.8 ??F) Wt (!) 119.3 kg (263 lb) SpO2 96% BMI 33.77 kg/m?? Physical Exam Constitutional: He is oriented [...] this visit: Type 2 diabetes mellitus with diabetic polyneuropathy, without long-term current use of insulin ([facility]) - POCT HEMOGLOBIN A1C 1. Diabetes He will continue with the bydureon, 70 units of basaglar, and 40 units of humalog- we discussed ways to try to remember to take his insulin He will move his basaglar to the afternoon WIll consider an endocrine consult in the future. Continue lipitor His goal is to have hip surgery His brother can be a big help and will come to visits with Charles he can 2. Diabetic foot ulcer Continue with care as per podiatry and we talked about checking his foot daily. He is complying with staying off the foot since he last saw Dr. Gonzales- he has an upcoming appointment- this Sunday 3. Depression Discuss CHT rferral at next visit 4. Diarrhea Stay off metformin -his stools are better without this. follow up here in 3 months- he has this scheduled I spent 30 minutes of face-face time with the patient, over half of it was in counseling Jason Batres MD documented in this encounter Plan of Treatment Not on file documented as of this encounter Procedures Procedure Name Priority Date/Time Associated Diagnosis Comments POCT HEMOGLOBIN A1C Routine 09/23/2018 9 :45 EDT Type 2 diabetes mellitus with diabetic polyneuropathy, without long-term current use of insulin ([facility]) documented in this encounter Results * (ABNORMAL) POCT HEMOGLOBIN A1C (09/23/2018 9:45 EDT) Hemoglobin A1c, POC 14.0(A) <=5.7 % DUARTE BROWN 09/23/2018 9:45 EDT Jason Batres MD POINT OF CARE TEST ORDERABLES Final Result Performing Organization Address City/State/[facility] Co de Phone Number DUARTE SCHWARZ [facility] [address] [place] [address] documented in this encounter Visit Diagnoses Diagnosis Type 2 diabetes mellitus with diabetic polyneuropathy, without long-term current use of insulin ([facility])- Primary documented in this encounter Discontinued Medications Medication Sig Discontinue Reason Start Date End Da te metFORMIN (GLUCOPHAGE) 1,000 mg tablet TAKE ONE TABLET BY MOUTH TWICE DAILY with breakfast and dinner 05/28/2018 09/23/2018 documented as of this encounter Care Teams Advanced Quality Engineer Relationship Specialty Start Date End Date Jason Batres MD [address] [place] [address] PCP - General 07/27/11 12/31/23 documented as of this encounter
--- OUTSIDE RECORDS SUMMARY | 2024-02-28 16:52 | XMS_ITS | Encounter Summary ---
Author Organization [facility] Address [address] [place] [address] Care Team Providers Care Advanced Registered Nurse Name Role Phone Jason Batres MD Primary Care Provi margarita Reason for Visit * Reason Comments Diabetes Encounter Details Date Type Department Care Team (Latest Contact Info) Description 05/30/2018 13:40 EDT Office Visit [facility] Endocrinology - [facility] [address] [place] [address] Yesi Marie NP [address] [facility] [address] [place] [address] Type 2 diabetes mellitus with hyperglycemia, with long-term current use of insulin ([facility]) (Primary Dx) Discharge Disposition: Auto Discharge Social [...] Sign Reading Time Taken Comments Blood Pressure 132/74 05/30/2018 1329 EDT Pulse 111 05/30/2018 1329 EDT Temperature - - Respiratory Rate - - Oxygen Saturation - - Inhaled Oxygen Concentration - - Weight 122.7 kg (270 lb 8 oz) 05/30/2018 1329 ED T Height 188 cm (6' 2.02) 05/30/2018 1329 EDT Body Mass Index 34.72 05/30/2018 1329 EDT documented in this encounter [...] Type 2 diabetes mellitus with hyperglycemia-E11.65[ICD-10-CM] Z79.4 residential (current) use of insulin-Z79.4[ICD-10-CM] documented in this encounter Patient Instructions * Patient Instructions* Yesi Marie Np - 05/30/2018 13:40 EDT Start taking your Lantus in the morning Rubberband your Novolog to your tv clicker to remember at dinner. We will call and get refills on lost medicine. F/U in 4 weeks. Tsh, BMP and repeat HgA1c today documented in this encounter Discharge Disposition Disposition Code Departure Means Destination Auto Discharge documented in this encounter Progress Notes * Rosenda Cesar - 05/30/2018 1340 EDT Fingerstick blood sample obtained for POCT Hemoglobin A1C performed for this DOS at the order of Yesi Marie NP * Yesi Marie Np - 05/30/2018 1340 EDT [facility] Follow-up Note CHIEF COMPLAINT: Davi Narvaez presents with 1. Type 2 diabetes mellitus with hyperglycemia, with long-term current use of insulin ([facility]) 2. Craniopharyngioma with memory loss. 3. Chronic right foot infection HPI: 57 year old male from [place] seen in follow-up for his type 2 diabetes and hypothyroidism. He was initially seen in our clinic by Dr. Ramos 11/29/2106 I have seen him several times since, most recently 03/20/2018. Please see notes for details. He also has seen one of our RD's. He has not had Levothyroxine in 3 days sone lost the script plus script for statin. 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 As a result processes info slowly and needs reinforced. 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 He developed afoot ulcer July 2017, and when seen in September was out of work in a walking boot with till early fall. At that time podiatry gave him the go ahead to work if stayed off his feet mostly. As a result does not help in the barn with the cows but helps with chores that he does not have to be on his feet much for. He chronic foot infection is much better since he started Humalog at dinner. However recentlya little bigger so told to stay off his feet for 2 wks except for 1 hr/day till seen. He has been doing as lot of wood splitting. He was seen in the ER 01/08 after caught a glove in a wood splitter [facility] a crush injury and laceration of left 2nd finger. Results for DAVI NARVAEZ ( ) as of 06/15/2018 12:08 Ref. Range 09/07/2017 11:30 11/14/2017 15:58 01/16/2018 08:15 01/17/2018 09:04 03/14/2018 09:00 03/28/2018 13:12 05/30/2018 13:31 05/30/2018 14:34 Hemoglobin A1C Latest Units: % 13.8 Est Avg Glucose Latest Units: mg/dl 349 Hemoglobin A1c, POC Latest Ref Range: 5.7 % 12.0 (A) Hemoglobin A1C, POC Interfaced Latest Ref Range: <5.7 % 12.1 (H) 13.4 (H) 11.2 (H) 12.2 (H) >14.0 (AA) Ur Alb ug/mg Crea Latest Units: ug/mg Crea 15.4 Ur Albumin mg/dl Latest Units: mg/dL 2.8 He currently takes Glimiperide 4 mg twice daily metformin 1000 mg twice daily,Bydureon weekly ,Basagar 70 units in the evening and Humalog 40 units with his largest meal dinner. He forgets 3/7 meal shots/wk. Forgot his meter and testing little recently. Reports he test the back of his legs since hands are dirty at the farm. Recent reading 186 & 166. No lows and says fasting blood sugars are 150-168 and after work 175-200. Previously I showed him the TruminimStyle sukhdev continuous glucose sensor today ,and he is very interested. The sensor is worn 14 days does not require any calibration. He understands will need to step up his testing most [...] and pizza his boss sometimes buys them. He has mets with an RD part of the community health team and Needs follow-up. Reports he eats healthy foods , but portions are an issue. Diabetes He presents for his follow-up diabetic visit. He has type 2 diabetes mellitus. Onset time: unsure Disease course: unchanged. There are no hypoglycemic associated symptoms. Associated symptoms includefoot ulcerations, polydipsia, polyuria and nocturia. Pertinent negatives for diabetes include no blurred vision, no fatigue, no foot paresthesias, no polyphagia, no visual change, no weakness and no weight loss. Pertinent negatives for diabetic complications include no CVA, heart disease, nephropathy, peripheral neuropathy, PVD or retinopathy. Risk factors for coronary artery disease include family history, obesity, male sex and diabetes mellitus. He is compliant with treatment some of the time. His weight is fluctuating minimally. He has had a previous visit with a dietitian. He participatesin exercise daily. An CEM inhibitor/angiotensin II receptor bettye is not being taken. He sees a [employer] portal consultant. Family history is reviewed and includes the following: unsure except for youger sister. Davi Narvaez has a history of being in poor glycemic control. Patient has a history of being compliant most of the time with medical therapy. Patient's home regimen consists of has a current medication list which includes the following prescription(s): atorvastatin, blood glucose, blood glucose meter, exenatide microspheres, freestyle freedom lite, glimepiride, ibuprofen, insulin glargine (basaglar kwikpen), insulin lispro, lancets, levothyroxine, and metformin. Prior treatment for [...] Skin: none. Cardiac: none. PHYSICAL EXAMINATION: Vitals:BP 132/74, pulse 111 Weight is 270 down 5 pounds. Physical Exam well-developed male in no acute distress. Slow cognitively processing thoughts secondary to. Brain tumor Heart & lung sounds unremarkable without carotid bruit Funduscopic: deferred Feet: deferred LABS: Lab Results Component Value Date CHOL 205 01/17/2018 HDL 43 01/17/2018 LDLBASE 125 01/17/2018 TRIG 184 01/17/2018 CHOLHDL 4.8 01/17/2018 Lab Results Component Value Date BUN 18 05/30/2018 CREATININE 0.84 05/30/2018 NA 135 (L) 05/30/2018 K 4.5 05/30/2018 Lab Results Component Value Date ALT 90 [...] 1. Type 2 diabetes mellitus with hyperglycemia, with long-term current use of insulin ([facility]) Continued poor glycemic control but now on dinner bolus and I think blood sugars will improve Working hard to limit diet and remember meds. Because of his brain surgery has slow thought processes andforgetfulness , I tried to avoid meal bolus insulin, but seems to be helping although needs a dose adjustment.given he is very active at work better to adjust his bolus and basal. Difficult to test BS given working on [...] Referred to diabetic education program. Referred to auricular acupuncturist no. Patient referred to eye progressive care unit registered nurse for annual dilated eye exam. Lifestyle modifications: [...] Clinically euthroid not recent tsh found. PLAN: Start taking your Lantus in the morning Rubberband your Novolog to your tv clicker to remember at dinner. We will call and get refills on lost medicine. F/U in 4 weeks. Tsh, BMP and repeat HgA1c today *More or less stringent glycemic goals may [...] statin, is an option. Yesi Marie NP 06/15/2018 12:06 I spent a total of 30 minutes in face to face time with this patient, and 20 minutes of that time was spent in counseling and coordination of care as described in This progress note. This note is prepared with voiced recognition. Please excuse any jersey knitter errors. Results for DAVI NARVAEZ ( ) as of 06/15/2018 12:08 Ref. Range 05/30/2018 14:34 Sodium Latest Ref Range: 136 - 145 mEq/L 135 (L) Potassium Latest Ref Range: 3.5 - 5.0 mEq/L 4.5 CO2 Latest Ref Range: 22 - 32 mEq/L 24 Chloride Latest Ref Range: 96 - 110 mEq/L 99 BUN Latest Ref Range: 10 - 26 mg/dl 18 Creatinine Latest Ref Range: 0.66 - 1.25 mg/dl 0.84 GFR, Calculated Latest Ref Range: >60 ml/min/1.73m2 98 Glucose, Serum Latest Ref Range: 70 - 100 mg/dl 403 (H) Calcium Latest Ref Range: 8.5 - 10.5 mg/dl 9.8 Calculated Calcium Latest Ref Range: 8.5 - 10.5 mg/dl 9.4 Fasting? Unknown Unknown Hemoglobin A1C Latest Units: % 13.8 Est Avg Glucose Latest Units: mg/dl 349 TSH Latest Ref Range: 0.47 - 4.68 uIU/ml 4.00 documented in this encounter Plan of Treatment Not on file documented as of this encounter Procedures Procedure Name Priority Date/Time Associated Diagnosis Comments POCT HEMOGLOBIN A1C, INTERFACED Routine 05/30/2018 13:31 EDT Type 2 diabetes mellitus with hyperglycemia, with long-term current use of insulin ([facility]) documented in this encounter Results * (ABNORMAL) BASIC METABOLIC PANEL (BMP) (05/30/2018 14:34 EDT) Sodium 135(L) 136 - 145 mEq/L 05/30/2018 18:48 T [facility] Potassium 4.5 3.5 - 5.0 mEq/L 05/30/2018 18:48 [facility] Chloride 99 96 - 110 mEq/L 05/30/2018 18:48 [facility] CO2 24 22 - 32 mEq/L 05/30/2018 18:48 [facility] BUN 18 10 - 26 mg/dl 05/30/2018 18:48 [facility] Creatinine 0.84 0.66 - 1.25 mg/dl 05/30/2018 18:48 [facility] GFR, Calculated 98 >60 ml/min/1.7 3m2 05/30/2018 18:48 [facility] Comment: eGFR calculated using CKD-EPI equation for non Americans. Multiply eGFR by 1.16 for Americans. Calcium 9.8 8.5 - 10.5 mg/dl 05/30/2018 18:48 [facility] Calculated Calcium 9.4 8.5 - 10.5 mg/dl 05/30/2018 18:48 [facility] Glucose, Serum 403(H) 70 - 100 mg/dl 05/30/2018 18:48 [facility] Fasting? Unknown 05/30/2018 18:48 [facility] Blood specimen (specimen) BLOOD SPECIMEN / Unknown 05/30/2018 14:34 EDT 05/30/2018 18:06 EDT Yesi Marie INTEGRITY ASSESSOR CHEMISTRY & BLOOD GAS ORDER ELIU Final Result Performing Organization Address [facility]/ZIP Co de Phone Number [facility] [address] [place] [address] * HEMOGLOBIN A1C (05/30/2018 14:34 EDT) Hemoglobin A1C 13.8 % 05/31/2018 10:04 EDT [facility] Comment: Reference Range: <5.7% Normal 5.7-6.4% Prediabetes =>6.5% Diagnostic for diabetes (if confirmed) Goals for glycemic control in diabetes ADA 2017 For non adults with diabetes: ?? Target <7.0% For children and adolescents with type 1 diabetes: ?? Target <7.5% More or less stringent targets may be appropriate for individual patients. Est Avg Glucose 349 mg/dl 9 10:04 EDT [facility] Comment: eAG represents the A1c result expressed as average glucose in mg/dl. Blood specimen (specimen) BLOOD SPECIMEN / Unknown 05/30/2018 14:34 EDT 05/30/2018 18:06 EDT Yesi Marie INTEGRITY ASSESSOR CHEMISTRY & BLOOD GAS ORDER ELIU Final Result Performing Organization Address [facility] Co de Phone Number [facility] [address] [place] [address] * TSH (05/30/2018 14:34 EDT) TSH 4.00 0.47 - 4.68 uIU/ml 05/30/2018 19:20 EDT [facility] Comment: The results of this assay can be falsely lowered due to the consumption of Biotin. Blood specimen (specimen) BLOOD SPECIMEN / Unknown 05/30/2018 14:34 EDT 05/30/2018 18:06 EDT Yesi Marie INTEGRITY ASSESSOR CHEMISTRY & BLOOD GAS ORDER ELIU Final Result Performing Organization Address [facility] Co de Phone Number [facility] [address] [place] [address] * (ABNORMAL) POCT HEMOGLOBIN A1C, INTERFACED (05/30/2018 13:31 EDT) Hemoglobin A1C, POC Interfaced >14.0(AA) <5.7 % 05/30/2018 13:49 EDT [facility] collaborative physician ID [id number] 05/30/2018 13:49 EDT [facility] Comment: For Hgb A1c values [...] specimen (specimen) BLOOD SPECIMEN / Unknown 05/30/2018 13:31 EDT 05/30/2018 13:49 EDT us Yesi Marie NP POINT OF CARE TEST ORDERABL ES Final Result [facility] [address] [place] [address] documented in this encounter Visit Diagnoses Diagnosis Type 2 diabetes mellitus with hyperglycemia, with long-term current use of insulin ([facility])- Primary documented in this encounter Care Teams Advanced Registered Nurse Relationship Specialty Start Date End Date Jason Batres MD [address] [place] [id number] PCP - General 07/27/11 12/31/23 documented as of this encounter
--- OUTSIDE RECORDS SUMMARY | 2024-02-28 16:52 | XMS_ITS | Encounter Summary ---
Author Organization [facility] Address [address] [place] [address] Care Team Providers Care Sterile Processing Technologist Name Role Phone Jason Batres MD Primary Care Provi margarita Reason for Visit * Reason Onset Date Comments Other 10/03/2019 Encounter Details Date Type Department Care Team (Late st Contact Info) Description 10/03/2019 Telephone Jason Batres MD, PC [address], [place] [phone] Jason Batres MD [address] [place] [address] Other Social History Tobacco Use Types [...] encounter Miscellaneous Notes * Telephone Encounter - Antonia Olsen - 10/03/2019 1642 EDT Pt's Nguyen called today and she is very concerned upon returning home this evening. She said pthas not been taking care of his ulcer on his right leg. She noticed that there was a lot of rednessaround the region. She said he missed his last appt for wound care and lied and told her he went, she then received a letter stating that he missed the appt. She is going to try and talk him into going to the emergency room for evaluation. Antonia Olsen documented in this encounter Plan of Treatment Not on file documented as of this encounter Visit Diagnoses Not on filedocumented in this encounter Care Teams Sterile Processing Technologist Relationship Specialty Start Date End Date Jason Batres MD [address] [place] [id number] PCP - General 07/27/11 12/31/23 documented as of this encounter
--- OUTSIDE RECORDS SUMMARY | 2024-02-28 16:52 | XMS_ITS | Encounter Summary ---
Author Organization [facility] Address [address] [place] [address] Care Team Providers Care Signal Fitter Name Role Phone Jason Batres MD Primary Care Provi margarita Reason for Visit * Reason Onset Date Comments Medications Refill 01/10/2019 Encounter Details Date Type Department Care Team (Late st Contact Info) Description 01/10/2019 Refill [facility] Endocrinology - [facility] [address], [place] [id number] Yesi Marie NP [address] [facility] [address] [place] [address] Medications Refill Social History Tobacco Use Types [...] End Date levothyroxine (SYNTHROID) 112 mcg tablet Take 1 Tab by mouth daily. 90 Tab 1 01/10/2019 04/22/2020 documented in this encounter Plan of Treatment Not on file documented as of this encounter Visit Diagnoses Not on filedocumented in this encounter Discontinued Medications Medication Sig Discontinue Reason Start Date End Da te levothyroxine (SYNTHROID) 112 mcg tablet TAKE ONE TABLET BY MOUTH ONE TIME DAILY Reorder 05/28/2018 01/10/2019 documented as of this encounter Care Teams Signal Fitter Relationship Specialty Start Date End Date Jason Batres MD [address] [place] [address] PCP - General 07/27/11 12/31/23 documented as of this encounter
--- OUTSIDE RECORDS SUMMARY | 2024-02-28 16:52 | XMS_ITS | Encounter Summary ---
Author Organization [facility] Address [address] [place] [address] Care Team Providers Care Director Employment Name Role Phone Karishma Batres MD Primary [...] Auth/Cert Specialty Diagnoses / Procedures [facility] Contact Diagnoses Osteomyelitis ([facility]) Diabetic foot infection ([facility]) Osteomyelitis, unspecified site, unspecified type ([facility]) Referral ID Status Reason Start Date Expiration Date Visits Re quested Visits Authorized [id number] 1 1 Encounter Details Date Type Department Care Team (Late st Contact Info) Description 10/05/2019 11:45 EDT - 10/05/2019 14:05 EDT Surgery [facility] Main [place] OR [address] [place] [address] Virgilio Ramirez MD [address] [place] [id number] Right second ray excision [[id number] (CPT??)] Surgery Details Date/Time Status Location OR Service Patient Class Case Class Case Type Trauma Case? 10/05/2019 1145 Posted [facility] OR MOR 06 Orthopedics Inpatient F - Less than 24 hours Panel 1 Procedure LRB Anes Op Region Wound Class Comments Right second ray excision Right General Second Toe Class IV/ Dirty or Infected Irrigation and debridement of the right foot Right General Foot Class IV/ Dirt y or Infected Surgeon Surgeon Role Service Panel Virgilio Ramirez MD Primary Orthopedics 1 Sachin Nicole MD Resident - Assisting Orthopedic s 1 , Hayes James MD Resident - Assisting Orthopedics 1 Special Needs Supine, radiolucent extension, TUR tubing, 9L, ortho basic, rongeur, curettes, wound vac set documented in this encounter Social History Tobacco [...] Sign Reading Time Taken Comments Blood Pressure 141/88 10/05/2019 0515 EDT Pulse 89 10/04/2019 0936 EDT Temperature 37 ??C (98.6 ??F) 10/05/2019 1404 EDT Respiratory Rate 10 10/05/2019 1404 EDT Oxygen Saturation 100% 10/05/2019 1404 EDT Inhaled Oxygen Concentration - - Weight [...] *Acute osteomyelitis of right ankle or foot ([facility]) 10/03/2019 Added automatically from request for surgery [id number] ??? Diabetic foot infection ([facility]) 10/04/2019 ??? Type 2 diabetes mellitus with diabetic polyneuropathy, with long-term current use of insulin ([facility]) 06/24/2018 Resolved Hospital Problems No resolved problems [...] and was set up for discharge to [facility] on 10/15/2019. ENDOCRINE RECOMMENDATIONS: Pt has T2DM of unknown duration which has been poorly controlled (Hgb A1c 15.8). He has been non-compliant with home medications and BG monitoring. ?? Placed on basal/bolus regimen in the hospital. Glargine 45 units with aspart 12 units with meals worked for him well. Today he is going to [facility] and sugars are down trending a bit. [...] 10:30 Televideo Short with Glenys Desir APRN [facility] Infectious Disease [facility] (--) [address] [place] [id number] Oct 24, 2019 13:30 Post Op Visit with Angelina Gonzales DPM [facility] Foot & Ankle Program [facility] (--) [address] [facility] [id number] Oct 28, 2019 10:00 Televideo Short with Glenys Desir APRN [facility] Infectious Disease [facility] (--) [address] [facility] [id number] Nov 04, 2019 10:30 Televideo Short with Glenys Desir APRN [facility] Infectious Disease [facility] (--) [address] [place] [id number] Nov 11, 2019 10:30 Televideo Short with Glenys Desir APRN [facility] Infectious Disease [facility] (--) [address] [facility] [id number] Nov 17, 2019 13:00 Televideo Short with Jorge Cunningham MD [facility] Infectious Disease [facility] (--) [address] [facility] [phone] Follow-up appointments and procedures Amb Consult/Follow Up Orthopedics Reason for Request: s/p right TMA with Christian 10/09 Authorizing Provider: Rainer Cavazos MD Appointments See Angelina Gonzales DPM @ [facility] is located at [address] [place] [address]. Authorizing Provider: Rainer Cavazos MD Call [phone] with questions Authorizing Provider: Rainer Cavazos MD [...] effects to abx. Likely to go to [facility] today. REVIEW OF SYSTEMS: 10-point review of [...] h/o poorly controlled t2DM, craniopharyngioma s/p resection [id number] w/ some memory and balance deficits, prior [...] Marisa * Morris Parsons, PT - 10/15/2019 1509 EDT he [facility] Rehabilitation Therapy [facility] Physical Therapy Discontinue/Discharge Note Date of Service: [...] this time MORRIS PARSONS PT 10/16/2019 13:55 [id number] * Francine Cheek LICSW - 10/15/2019 1213 EDT CASE MANAGEMENT DISCHARGE NOTE Confirmed with team that pt is medically stable for discharge. Confirmed with Millie Solano in admissions at [facility] that facility is able to accept pt with IV abx and wound vac today. DISCHARGE DATE/TIME: 10/15/2019 at 3:00pm DESTINATION: [facility] (If discharging to [facility]) COVID swab ordered and completed: Ordered and completed yesterday 10/14/2019with negative results received. TRANSPORTATION: [employer] wheelchair van - pt will be picked up in the [facility] lobby. ACCEPTING MD AND NUMBER: Dr. Edson Zepeda [phone] RN REPORT/UNIT: [phone] SWITCHBOARD OPERATOR RECEPTIONIST/CHARGE/MD NOTIFIED (Y/N): Y FORMS: PASRR and EDISON IM SIGNED (Y/NA): NA PHARMACY/PRESCRIPTIONS: Please send pt with hard copies of prescriptions for any controlled medications. Patient and/or family who participated in discharge plan: Patient and Nguyen (P: [phone]) [place], [place] Ext [phone] Pager #[phone] * Yusef Mccarty MD - 10/15/2019 0935 EDT Endocrine/Diabetes Follow Up/Progress Note Admit Date: 10/03/2019 Hospital day LOS: 11 days Date of Service: 10/15/2019 Reason for Following: T2DM with hyperglycemia Subjective: Pt is resting comfortably in bed, no complaints today, has a good appetite. Going to [facility] today Diabetes HX: Duration: Unknown Control: Currently [...] hypothyroidism, memory impairment (unclear) who presented to [facility] 10/03/2019 with R foot [...] Sensation globally decreased Able to fire AT, [facility] Labs: A: Jeff Narvaez is a 58 y.o. that is s/p above. P: NWB RLE, AT Ambulation, SCDs for DVT prophylaxis MWF wound VAC changes Unasyn 3 g IV every 6 hours, transition to Augmentin 875/125 mg p.o. twice daily upon discharge-continue antibiotics until 10/19/2019 Carb consistent diet PT recommending NICHOLE Multimodal pain control Disposition- [facility] today Rainer Cavazos MD 10/15/19 6:06 0826 * Francine Cheek LICSW - 10/14/2019 1339 EDT SW/CM Progress Note: Pt is awaiting NICHOLE placement. He is accepted at [facility] pending insurance authorization from [facility]. Anticipate he will be able to d/c tomorrow. COVID-19 swab will be needed today with results back prior to discharge to [facility] [place] Ext [phone] Pager #[phone] * Eleno Murcia MD - 10/14/2019 1328 [...] h/o poorly controlled t2DM, craniopharyngioma s/p resection [id number] w/ some memory and balance deficits, prior [...] place PICC Recommendations discussed with primary team rTent Murcia MD [id number] Infectious Diseases * Kala Roman, - 10/14/2019 1048 EDT Endocrine/Diabetes Follow Up/Progress [...] hypothyroidism, memory impairment (unclear) who presented to [facility] 10/03/2019 with R foot [...] for now. Patient will be going to [facility] when ready for discharge and have discussed [...] Garcia, PT - 10/14/2019 1042 EDT [facility] Rehabilitation Therapy Acute Therapy [facility] Physical Therapy Contact Note Date of [...] Progress Note: Spoke with pt's Nguyen (P: [phone]). She would like for pt to go to [facility] when medically ready for discharge. Sent message to Millie Solano in admissions who has not made a decision on pt's acceptance as of yet. Pt does have a bed offer at [facility] if [facility] is unable 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 Patient will be going to [facility] when ready for discharge and have discussed [...] over the weekend- plan for discharge to [facility] when ready for discharge due to NWB [...] hypothyroidism, memory impairment (unclear) who presented to [facility] 10/03/2019 with R foot [...] hypothyroidism, memory impairment (unclear) who presented to [facility] 10/03/2019 with R foot [...] at initial interview, hehas been snacking on [place] cheddar while admitted, suggested that he could [...] at discharge. KAUSHAL Ruffin 6 pager number: [phone] * Francine Cheek [facility] - 10/10/2019 1498 EDT SW/CM Progress Note: Pt was evaluated by PT and recommendation is NICHOLE. Spoke with pt's Nguyen (P: [phone]) to discuss options. She would like to look in [facility] and [facility]. Referral sent. She will follow-up with preferences after taking some time to research [place] Ext [phone] Pager #[phone] * Morris Parsons, PT - 10/10/2019 0846 EDT [facility] Rehabilitation Therapy Acute Therapies [facility] Physical Therapy Encounter Note Date of [...] this time MORRIS PARSONS PT 10/10/2019 8:46 [id number] * Marija Bajwa MD - 10/10/2019 0808 [...] hypothyroidism, memory impairment (unclear) who presented to [facility] 10/03/2019 with R foot [...] 12:20 * Rainer Cavazos MD - 10/10/2019 625 EDT Orthopaedic Progress Note Pt Name: Jeff [...] week. * Raman Cary MD - 10/09/2019 0907 EDT Ortho Post Op Check: S-Doing well [...] Cortext * Marija Bajwa MD - 10/09/2019 0867 EDT Endocrine/Diabetes Follow Up/Progress Note Admit Date: [...] hypothyroidism, memory impairment (unclear) who presented to [facility] 10/03/2019 with R foot [...] - Ketty Nicole MD PhD - 10/09/2019 7107 EDT Attestation: I saw and examined the [...] Hatch, PT - 10/09/2019 0712 EDT [facility] Rehabilitation Therapy Acute Therapy [facility] Physical Therapy Contact Note Date of Service: 10/09/2019 Scheduled for transmet amputation today. PT will follow up tomorrow. ZULY HATCH, JAZMIN 10/09/2019 7:13 * Elizabeth Costello - 10/08/2019 1606 EDT Brief Nutrition note Attempted to see for follow-up nutrition diabetes education; was on bedpan at first attempt, sleeping at next two attempts. Will try again later this week. Reviewed his meal orders over past 48 hoursand he has continued to order [place] cheese and hard-cooked egg as low carb [...] self inject and do BG checking. Lauren Vazquez BSN retail analyst Nurse Clinician#[id number] * Shelly Garcia, PT - 10/07/2019 1516 EDT [facility] Rehabilitation Therapy Acute Therapies [facility] Physical Therapy Encounter Note Date of [...] other consults recommended at this time Pager: [phone] Shelly Garcia, PT 10/07/2019 15:17 * Rainer Cavazos MD - 10/07/2019 0697 EDT Orthopaedic Progress Note Pt Name: Jeff [...] 10/06/2019 19:20 * Armin Arzate - 10/06/2019 1814 EDT Initial Case Management/Social Work Assessment and Discharge Plan/Readmission Risk Assessment REASON FOR ADMISSION: Osteomyelitis ([facility]) Patient understands reason for admission: Yes PATIENT CONTACT INFO VERIFIED: Yes PATIENT ADDRESS VERIFIED: Yes Type of housing (single family, condo, apartment, detention, single room occupancy, [facility] funded hotel room, group long term) - single family Who does the patient live with? spouse Does the patient have access to their own bedroom/bathroom/kitchen - or is it shared with others? Shares with spouse Name of housing complex (ex [facility], [facility], [place] [facility], etc)- n/a Housing Authority/Managing Organization - n/a Community Care Providers (counter caser, [facility] nurse, etc) name and contact information- [...] Type of Healthcare Directive: Durable power of wastewater supervisor for health care Copy in Chart: No, copy requested from family Information Provided on Healthcare Directives: No Information on Healthcare Directives Requested: No DIRECTIVES FOR FINANCES: Directive For Finances: No TRANSPORTATION: Transportation: Self, Family CULTURAL, CHRISTIAN and/or LANGUAGE factors affecting health care/discharge planning: [...] DME Provider: not at this time Pharmacy: [id number] - [place], [place] - [address] [place] [address] [place] [address] [id number] - [place], [place] - [address] [place] [address] [place] [address] Home Health: Not at this time Other: POST HOSPITAL TRANSITION PLAN: Pending clinical course, PT stan. Patient POD 1 amputation of two toes and debridement on R diabetic foot wound. 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 Patient's called RN and requested CM call, this writercannot call today. Patient has two adult sons who live and work in [place] and [place]. Patient tellshis will transport patient home if home is discharge destination. ARMIN NICOLEON 10/06/2019 17:37 * Lauren Vazquez, RN - 10/06/2019 1402 EDT Diabetes Nurse Clinician met with Mr Narvaez for review of SDM. Current A1C 15.9 EAG= 410. 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 Lives with his Nguyen in [facility]. SMBG: does not check very often, maybe [...] for review of current medications. Lauren LITTLEJOHN retail analyst Nurse Clinician #[id number] * Shelly Garcia, PT - 10/06/2019 1044 EDT [facility] Rehabilitation Therapy [facility] Physical Therapy Initial Evaluation Note Date [...] type (HCC-CMS) [M86.9] The patient lives at [address] [place] [address] Safety Assessment / Living Environment Home environment: [...] to therapy session, After therapy session By: [id number] communication About Mobility and Gait: Mobility status [...] today. [facility], pending overall progress with functional mobility. Short-Term Goals: NE Long-Term Goals: Time Frame: 1-2 weeks Goal: bed mobility: supervision Goal: transfers: supervision bed<>chair Goal: gait: ambulation >50 feet with supervision Goal: stairs: ascending/descending stairs with min contact assist PLAN: Necessity: Physical therapy will be provided by the physical therapist and/or physical therapist pharmacy innovation assistant when medically appropriate Frequency: Times per [...] To be determined by next provider Pager: [phone] Shelly Garcia, PT 10/06/2019 16:49 * Rainer [...] Garcia, PT - 10/05/2019 1156 EDT [facility] Rehabilitation Therapy Acute Therapy [facility] [place] [facility] Contact Note Date of Service: 10/05/2019 PT referral received and chart reviewed. Patient to OR today for second ray resection and I&D. PT will follow-up tomorrow. Shelly Garcai, PT 10/05/2019 11:56 * Gilda Black MD [...] Incision decreased in stocking glove distribution Motor: 5/5 TA/GS/FHL/EHL DP +2, palpable PT ASSESSMENT/PLAN: Jeff [...] recommendations Js Meza MD 10/04/2019 9:59 PGY2 5500 Cosigned by Virgilio Ramirez MD at 10/06/2019 17:12 EDT documented in this encounter Procedure Notes * Nguyen Lagunas RN - 10/15/2019 1231 EDT Central Catheter Insertion First Catheter This Session quencher operator: Patient Location: [id number] Preliminary Data: Insertion Date: 10/15/19 Insertion Time: 1150 First Bean Picker Machine Operator: Nguyen Watts RN RN/MA Documenting Procedure: Karishma [...] Service / IR Details: Responsible Service: CHANDNI RN Lidocaine 1% - Route/Dose (cc's): Intradermal Central Line Materials and Methods: Number of Attempts: 1 Number of Sites Attempted: 1 Number of Kits Used: 1 Location Device Used: Sherlock;Ultrasound;3CG Central Line Operators: Number Of Operators: 1 First Bean Picker Machine Operator's Name: Nguyen Jain First Bean Picker Machine Operator's Title: Vascular dental instrument maker Unless otherwise noted, there were no complications, [...] hypothyroidism, memory impairment (unclear) who presented to [facility] 10/03/2019 with R foot [...] BG regularly Regular Diabetes Provider: PCP PMH PS Past Medical History: Diagnosis Date ??? Arthritis [...] 10/09/2019] ceFAZolin (ANCEF) syringe 2 g, intravenous, APPLIED RESEARCHER TO O.R. ??? cefePIME (MAXIPIME) 2,000 mg [...] hypothyroidism, memory impairment (unclear) who presented to [facility] 10/03/2019 with R foot [...] y.o. diabetic gentleman who was admitted to [facility] on 10/03/2019 with right [...] antibiotic allergies. Social History: reviewed. Lives in [place] w/ his Nguyen. Family History: Reviewed. No [...] 10 years. Met with an RD at [facility] for nutrition education at some point [...] 31.16 kg/m??. Weights Filed This Admission 10/03/19 0482 Weight: (!) 110.1 kg (242 lb 11.6 [...] CD Marsh 6 pager number: [phone] * Seeker, MD Js - 10/04/2019 3615 EDT Images from the original note were not included. Orthopaedic Surgery Consultation Date: 10/04/2019 Reason for Consult: R Diabetic foot wound HPI: Jeff Narvaez is a very pleasant 58 y.o. male the past medical history of uncontrolled T2DM oninsulin (A1c 14), craniopharyngioma s/p resection at [facility], prior second R phalanx resection, hypothyroidism, [...] history of Arthritis, Back pain, Diabetes mellitus ([facility]), Hypothyroidism, and Wears glasses. He also has [...] No Known Allergies. FHx/SHx: Pt lives at [address] [place] [address]. Non Smoker, occasional EtoH, denies IVDU. 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 Assessment: Jeff Narvaez 1960 [id number] Jeff Narvaez is a 58 y.o. male [...] SERVICE DATE: 10/09/2019 SURGEON: Angelina Gonzales DPM PATIENT OFFICE REP: None. PREOPERATIVE DIAGNOSIS: Right foot abscess and [...] retained. Angelina Gonzales DPM / CF Confirmation: [id number] Dictation ID: [id number] cc: * OR PreOp - [place] [...] prior to surgery. Internal Control Charge Nurse: [phone] OR nurse will call to floor if further report is needed. Other issues identified: - Nguyen is contact @ [phone] In coordination with inpatient nurse, this patient and chart has been reviewed for OR readiness. Pre Op PIC Nurse [phone] * OR Surgeon - Virgilio Ramirez MD - 10/05/2019 1711 EDT OPERATIVE REPORT SERVICE DATE: 10/05/19 SURGEON: Virgilio Ramirez MD PATIENT OFFICE REP: Sachin Nicole MD; Hayes Kaplan MD PREOPERATIVE DIAGNOSIS: Right [...] for the entirety of the procedure. Sachin Nicole MD 10/06/2019 5:10 documented in this encounter [...] and agreed to evaluate the patient. Follow-up: 300 - Patient was evaluated by Orthopedics who felt the patient would benefit from admission to Medicine with Orthopedics consulting. 0 - Internal Medicine was contacted for admission. [...] exam for emergent medical conditions at the [facility] on 10/03/2019 Scribe attestation: This documentation is [...] Glucose, POC 376 (*) Final Tech ID [id number] Final HN LAB POC COMMENT (GLUCOSE) Test Performed by Nursing Services Final POCT URINE DIPSTICK, CLINITEK - Abnormal Color, UA Yellow Final Clarity, UA Clear Final Glucose, UA 2+ (*) Final Bilirubin, UA 1+ (*) Final Ketones, UA 1+ (*) Final Specific Wright, Urine 1.015 Final Blood, UA Negative Final pH, UA 6.0 Final Protein, UA 1+ (*) Final Urobilinogen, UA 0.2 Final Nitrite, UA Negative Final Leuk Esterase Negative Final Tech ID [id number] Final HN LAB COMMENT (CLINITEK, UR) Test performed at Emergency Department Final BUN - Normal BUN 22 Final CREATININE - Normal Creatinine 0.73 Final eGFR 103 Final LACTIC ACID - Normal Lactic Acid 1.2 Final BACTERIAL CULTURE, BLOOD BACTERIAL CULTURE, BLOOD COVID-19 TESTING COVID-19 TEST [facility] LAB PCR POCT URINE CLINITEK (DIPSTICK) - DOES NOT REFLEX Narrative: The following orders were created for panel order POCT URINE CLINITEK (DIPSTICK) - DOES NOT REFLEX. Procedure Abnormality Status --------- ------ POCT URINE DIPSTICK, CLI...[[id number]] Abnormal Final result POCT CSN BARCODE URINE D...[[id number]] Final result Please view results for these [...] of medication. Clinical Impression Final diagnoses: Osteomyelitis ([facility]) Osteomyelitis, unspecified site, unspecified type (HCC-CMS) Disposition Signed out (see progress Notes) The [...] sent with pt and report called to [facility] Response: Pt left the unit at 1450 [...] to the lab, awaiting result, discharging to [facility] today. NINO FORBES RN 10/15/2019 0:25 * [...] of Care - Jonny Walsh - 10/12/2019 1408 EDT Data: Pt s/p#3 from Right foot transmetatarsal amputation, dressing cdi, rates pain of 5-10/12 this shift, goal is to ambulate pt [...] Voiding in the urinal. Highest pain complaint 09/11 this shift. Action: Administered scheduled medications per [...] Voiding in the urinal. Highest pain complaint 09/11 this shift. Action: Elevated RLE on pillows. [...] Goal: Care Plan Documentation Flowsheets (Taken 10/09/2019 1050) Area of Focus: Communication Goal This Shift: [...] Plan Documentation Outcome: Ongoing Flowsheets (Taken 10/08/2019 5371) Area of Focus: Pain/ Comfort Goal This [...] Care - Karishma Ayoub RN - 10/08/2019 2244 EDT Data: Pt. A/Ox3 but forgetful and [...] 18:08 * Brief Op Note - Sachin Nicole MD - 10/05/2019 1117 EDT Brief Op Note Date of Surgery: 10/05/2019 Diagnosis: Right diabetic necrotic ulceration, osteomyelitis of the second phalanx and second ray Procedure: Irrigation and debridement of the right foot, second and third ray amputations, wound vac application Surgeon: James Private Inquiry Agent: Tin Kaplan Anesthesia Type: General Tourniquet Time: 36 minutes EBL: 50cc IVF: See anesthesia report Cultures: Bone culture x2, soft tissue culture x2 Implants: None Complications: None perceived Disposition and Condition: PACU in Stable condition per anesthesia. NWB RLE, AAT Ambulation for DVT ppx Vancomycin, Flagyl, cefepime Regular diet PT eval Multimodal pain control Dispo planning Closed with wound vac Sachin Nicole MD 10/05/2019 11:18 [id number] * Plan of [...] 0:29 * Plan of Care - Sachin Nicole MD - 10/04/20192021 EDT Name:Jeff Narvaez :1960 [...] - ARBS/KACEY medications discontinued (if necessary) Sachin Nicole MD 10/04/19 20:22 * Plan of Care [...] Oriented pt to room and unit. Educated environmental emergencies assistant larson, phone, and bed control use. Administered [...] osteomyelitis of right ankle or foot (HCC-CMS) Ordered: 10/15/2019 BUN Lab Routine Acute osteomyelitis of right ankle or foot (HCC-CMS) Ordered: 10/15/2019 CREATININE Lab Routine Acute osteomyelitis of right ankle or foot (HCC-CMS) Ordered: 10/15/2019 SED. RATE:WESTERGREN Lab Routine Acute osteomyelitis of right ankle or foot ([facility]) Ordered: 10/15/2019 C REACTIVE PROTEIN Lab Routine Acute osteomyelitis of right ankle or foot ([facility]) Ordered: 10/15/2019 documented as of this encounter [...] SURGICAL PATHOLOGY Routine 10/09/2019 16 :11 EDT POCT GLUCOSE, INTERFACED Routine 10/09/2019 14:41 EDT [...] MUSCLE, AND BONE 10/05/2019 13:59 EDT Osteomyelitis ([facility]) Special Needs Supine, radiolucent extension, TUR tubing, 9L, ortho basic, rongeur, curettes, wound vac set EXCISION, METATARSAL BONE, HEAD, FIFTH METATARSAL, PARTIAL 10/05/2019 13:59 EDT Osteomyelitis ([facility]) Special Needs Supine, radiolucent extension, TUR tubing, [...] 20:07 EDT BACTERIAL CULTURE- MRSA, GRP B STREP-[facility] ([facility] USE ONLY) Routine [...] 10/22/2019 11:2 1 EDT us Scan 2 Hatchery Laborer PROCEDURE/MINOR SURGICAL OR DERABLES Final Result * ECG REPORT - SCANNED (10/20/2019 10:08 EDT) 10/20/2019 10:0 8 EDT us Scan 2 Hatchery Laborer PROCEDURE/MINOR SURGICAL OR DERABLES Final Result * (ABNORMAL) POCT GLUCOSE, INTERFACED (10/15/2019 13:17 EDT) Pathologist [facility] Glucose, POC 157(H) 70 - 100 mg/dL 10/15/2019 13:18 EDT [facility] button spindler ID [id number] 10/15/2019 13:18 EDT [facility] HN LAB POC COMMENT (GLUCOSE) Test Performed by Nursing Services 10/15/2019 13:18 EDT [facility] Blood CAPILLARY BLOOD / Unknown 10/15/2019 13:17 EDT 10/15/2019 13:18 EDT us Angelina Medina Christian DP POINT OF CARE TEST ORDERABLES F inal Result Performing Organization Address [facility] [place]/[facility] Co de Phone Number [facility] [address] [place] [address] * (ABNORMAL) POCT GLUCOSE, INTERFACED (10/15/2019 9:26 EDT) Glucose, POC 104(H) 70 - 100 mg/dL 10/15/2019 9:27 EDT [facility] button spindler ID [id number] 10/15/2019 9:27 EDT [facility] HN LAB POC COMMENT (GLUCOSE) Test Performed by Nursing Services 10/15/2019 9:27 EDT [facility] Blood CAPILLARY BLOOD / Unknown 10/15/2019 9:26 EDT 10/15/2019 9:27 EDT Raman Cary MD POINT OF CARE TEST ORDERAB LES Final Result Performing Organization Address [facility] Co de Phone Number [facility] [address] [place] [address] * COVID-19 TEST [facility] PCR (10/14/2019 21:04 EDT) Swab ENTIRE NASOPHARYNX / Unknown Swab / Unknown 10/14/2019 21:04 EDT 10/14/2019 21:13 EDT Nikia Hernandez PA-C MICROBIOLOGY - GENERAL ORDERABLES Final Result Performing Organization Address City/[facility] Co de Phone Number [facility] [address] [place] [address] * COVID-19 TESTING (10/14/2019 21:04 EDT) COVID-19 rt-PCR Result Negative Negative 10/15/2019 1:03 EDT [facility] Comment: This test has not been FDA cleared or approved. This test has been authorized by FDA under an EUA for use by authorized laboratories. This test has been authorized only for detection of nucleic acid from 2018-, not for any other viruses or pathogens. [...] history, and epidemiological information. Performed on the [employer] Fusion instrument Performing Lab [place] [facility] 10/15/2019 1:03 EDT [facility] Swab ENTIRE NASOPHARYNX / Unknown Swab / Unknown 10/14/2019 21:04 EDT 10/14/2019 21:13 EDT us Nikia Hernandez PA-C MICROBIOLOGY - GENERAL ORDERABLES Final Result Performing Organization Address City/[facility]/ZIP Co de Phone Number [facility] [address] [place] [address] * (ABNORMAL) POCT GLUCOSE, INTERFACED (10/14/2019 20:52 EDT) Glucose, POC 105(H) 70 - 100 mg/dL 10/14/2019 20:55 EDT [facility] button spindler ID [id number] 10/14/2019 20:55 EDT [facility] HN LAB POC COMMENT (GLUCOSE) Test Performed by Nursing Services 10/14/2019 20:55 EDT [facility] Blood CAPILLARY BLOOD / Unknown 10/14/2019 20:52 EDT 10/14/2019 20:55 EDT us Raman Cary MD POINT OF CARE TEST ORDERAB LES Final Result Performing Organization Address City/[facility]/ZIP Co de Phone Number [facility] [address] [place] [address] * (ABNORMAL) POCT GLUCOSE, INTERFACED (10/14/2019 17:37 EDT) Glucose, POC 145(H) 70 - 100 mg/dL 10/14/2019 17:38 EDT [facility] button spindler ID [id number] 10/14/2019 17:38 EDT [facility] HN LAB POC COMMENT (GLUCOSE) Test Performed by Nursing Services 10/14/2019 17:38 EDT [facility] Blood CAPILLARY BLOOD / Unknown 10/14/2019 17:37 EDT 10/14/2019 17:38 EDT us Angelina Gonzales [facility] POINT OF CARE TEST ORDERABLES F inal Result Performing Organization Address City/[facility]/ZIP Co de Phone Number [facility] [address] [place] [address] * (ABNORMAL) POCT GLUCOSE, INTERFACED (10/14/2019 12:55 EDT) Glucose, POC 138(H) 70 - 100 mg/dL 10/14/2019 12:57 EDT [facility] button spindler ID [id number] 10/14/2019 12:57 EDT [facility] HN LAB POC COMMENT (GLUCOSE) Test Performed by Nursing Services 10/14/2019 12:57 EDT [facility] Blood CAPILLARY BLOOD / Unknown 10/14/2019 12:55 EDT 10/14/2019 12:57 EDT us Angelina Medina Christian [facility] POINT OF CARE TEST ORDERABLES F inal Result Performing Organization Address City/[facility]/ZIP Co de Phone Number [facility] [address] [place] [address] * (ABNORMAL) POCT GLUCOSE, INTERFACED (10/14/2019 7:53 EDT) Glucose, POC 175(H) 70 - 100 mg/dL 10/14/2019 7:55 EDT [facility] button spindler ID [id number] 10/14/2019 7:55 EDT [facility] HN LAB POC COMMENT (GLUCOSE) Test Performed by Nursing Services 10/14/2019 7:55 EDT [facility] Blood CAPILLARY BLOOD / Unknown 10/14/2019 7:53 EDT 10/14/2019 7:55 EDT Raman Cary MD POINT OF CARE TEST ORDERAB LES Final Result [facility] [address] [place] [address] * (ABNORMAL) POCT GLUCOSE, INTERFACED (10/13/2019 21:45 EDT) Glucose, POC 118(H) 70 - 100 mg/dL 10/13/2019 21:45 EDT [facility] button spindler ID [id number] 10/13/2019 21:45 EDT [facility] HN LAB POC COMMENT (GLUCOSE) Test Performed by Nursing Services 10/13/2019 21:45 EDT [facility] Blood CAPILLARY BLOOD / Unknown 10/13/2019 21:45 EDT 10/13/2019 21:45 EDT Raman Cary MD POINT OF CARE TEST ORDERAB LES Final Result Performing Organization Address City/[facility]/ZIP Co de Phone Number [facility] [address] [place] [address] * (ABNORMAL) POCT GLUCOSE, INTERFACED (10/13/2019 19:14 EDT) Glucose, POC 186(H) 70 - 100 mg/dL 10/13/2019 19:17 EDT [facility] button spindler ID [id number] 10/13/2019 19:17 EDT [facility] HN LAB POC COMMENT (GLUCOSE) Test Performed by Nursing Services 10/13/2019 19:17 EDT [facility] Blood CAPILLARY BLOOD / Unknown 10/13/2019 19:14 EDT 10/13/2019 19:17 EDT Angelina Gonzales [facility] POINT OF CARE TEST ORDERABLES F inal Result Performing Organization Address City/[facility]/ZIP Co de Phone Number [facility] [address] [place] [address] * (ABNORMAL) POCT GLUCOSE, INTERFACED (10/13/2019 11:59 EDT) Glucose, POC 155(H) 70 - 100 mg/dL 10/13/2019 12:00 EDT [facility] button [place]indler ID [id number] 10/13/2019 12:00 EDT [facility] HN LAB POC COMMENT (GLUCOSE) Test Performed by Nursing Services 10/13/2019 12:00 EDT [facility] Blood CAPILLARY BLOOD / Unknown 10/13/2019 11:59 EDT 10/13/2019 12:00 EDT us Angelina Gonzales [facility] POINT OF CARE TEST ORDERABLES F inal Result Performing Organization Address City/[facility]/ZIP Co de Phone Number [facility] [address] [place] [address] * (ABNORMAL) POCT GLUCOSE, INTERFACED (10/13/2019 7:11 EDT) Glucose, POC 170(H) 70 - 100 mg/dL 10/13/2019 8:30 EDT [facility] button spindler ID [id number] 10/13/2019 8:30 EDT [facility] HN LAB POC COMMENT (GLUCOSE) Test Performed by Nursing Services 10/13/2019 8:30 EDT [facility] Blood CAPILLARY BLOOD / Unknown 10/13/2019 7:11 EDT 10/13/2019 8:30 EDT us Raman Cary MD POINT OF CARE TEST ORDERAB LES Final Result [facility] [address] [place] [address] * (ABNORMAL) POCT GLUCOSE, INTERFACED (10/12/2019 21:10 EDT) Glucose, POC 161(H) 70 - 100 mg/dL 10/12/2019 21:11 EDT [facility] button spindler ID [id number] 10/12/2019 21:11 EDT [facility] HN LAB POC COMMENT (GLUCOSE) Test Performed by Nursing Services 10/12/2019 21:11 EDT [facility] Blood CAPILLARY BLOOD / Unknown 10/12/2019 21:10 EDT 10/12/2019 21:11 EDT us Raman Cary MD POINT OF CARE TEST ORDERAB LES Final Result [facility] [address] [place] [address] * (ABNORMAL) POCT GLUCOSE, INTERFACED (10/12/2019 17:11 EDT) Glucose, POC 138(H) 70 - 100 mg/dL 10/12/2019 17:12 EDT [facility] button spindler ID [id number] 10/12/2019 17:12 EDT [facility] HN LAB POC COMMENT (GLUCOSE) Test Performed by Nursing Services 10/12/2019 17:12 EDT [facility] Blood CAPILLARY BLOOD / Unknown 10/12/2019 17:11 EDT 10/12/2019 17:12 EDT us Raman Cary MD POINT OF CARE TEST ORDERAB LES Final Result Performing Organization Address City/[facility]/ZIP Co de Phone Number [facility] [address] [place] [address] * (ABNORMAL) POCT GLUCOSE, INTERFACED (10/12/2019 12:06 EDT) Glucose, POC 185(H) 70 - 100 mg/dL 10/12/2019 12:07 EDT [facility] button spindler ID [id number] 10/12/2019 12:07 EDT [facility] HN LAB POC COMMENT (GLUCOSE) Test Performed by Nursing Services 10/12/2019 12:07 EDT [facility] Blood CAPILLARY BLOOD / Unknown 10/12/2019 12:06 EDT 10/12/2019 12:07 EDT us Angelina Gonzales DPM POINT OF CARE TEST ORDERABLES F inal Result [facility] [address] [place] [address] * POCT GLUCOSE, INTERFACED (10/12/2019 7:27 EDT) Glucose, POC 83 70 - 100 mg/dL 10/12/2019 9:13 EDT [facility] button spindler ID [id number] 10/12/2019 9:13 EDT [facility] HN LAB POC COMMENT (GLUCOSE) Test Performed by Nursing Services 10/12/2019 9:13 EDT [facility] Blood CAPILLARY BLOOD / Unknown 10/12/2019 7:27 EDT 10/12/2019 9:13 EDT us Raman Cary MD POINT OF CARE TEST ORDERAB LES Final Result Performing Organization Address [facility]/ZIP Co de Phone Number [facility] [address] [place] [address] * (ABNORMAL) POCT GLUCOSE, INTERFACED (10/11/2019 21:03 EDT) Glucose, POC 132(H) 70 - 100 mg/dL 10/11/2019 21:08 EDT [facility] button spindler ID [id number] 10/11/2019 21:08 EDT [facility] HN LAB POC COMMENT (GLUCOSE) Test Performed by Nursing Services 10/11/2019 21:08 EDT [facility] Blood CAPILLARY BLOOD / Unknown 10/11/2019 21:03 EDT 10/11/2019 21:08 EDT us Raman Cary MD POINT OF CARE TEST ORDERAB LES Final Result [facility] [address] [place] [address] * (ABNORMAL) POCT GLUCOSE, INTERFACED (10/11/2019 17:58 EDT) Glucose, POC 124(H) 70 - 100 mg/dL 10/11/2019 17:59 EDT [facility] button spindler ID [id number] 10/11/2019 17:59 EDT [facility] HN LAB POC COMMENT (GLUCOSE) Test Performed by Nursing Services 10/11/2019 17:59 EDT [facility] Blood CAPILLARY BLOOD / Unknown 10/11/2019 17:58 EDT 10/11/2019 17:59 EDT us Angelina Medina Christian [facility] POINT OF CARE TEST ORDERABLES F inal Result Performing Organization Address [facility] Co de Phone Number [facility] [address] [place] [address] * (ABNORMAL) POCT GLUCOSE, INTERFACED (10/11/2019 13:39 EDT) Glucose, POC 289(H) 70 - 100 mg/dL 10/11/2019 13:40 EDT [facility] button spindler ID [id number] 10/11/2019 13:40 EDT [facility] HN LAB POC COMMENT (GLUCOSE) Test Performed by Nursing Services 10/11/2019 13:40 EDT [facility] Blood CAPILLARY BLOOD / Unknown 10/11/2019 13:39 EDT 10/11/2019 13:40 EDT Agnelina Medina Christian [facility] POINT OF CARE TEST ORDERABLES F inal Result Performing Organization Address [facility] Co de Phone Number [facility] [address] [place] [address] * (ABNORMAL) POCT GLUCOSE, INTERFACED (10/11/2019 9:39 EDT) Glucose, POC 128(H) 70 - 100 mg/dL 10/11/2019 9:41 EDT [facility] button [place]indler ID [id number] 10/11/2019 9:41 EDT [facility] HN LAB POC COMMENT (GLUCOSE) Test Performed by Nursing Services 10/11/2019 9:41 EDT [facility] Blood CAPILLARY BLOOD / Unknown 10/11/2019 9:39 EDT 10/11/2019 9:41 EDT Raman Cary MD POINT OF CARE TEST ORDERAB LES Final Result [facility] [address] [place] [address] * (ABNORMAL) POCT GLUCOSE, INTERFACED (10/11/2019 0:15 EDT) Glucose, POC 158(H) 70 - 100 mg/dL 10/11/2019 0:16 EDT [facility] button spindler ID [id number] 10/11/2019 0:16 EDT [facility] HN LAB POC COMMENT (GLUCOSE) Test Performed by Nursing Services 10/11/2019 0:16 EDT [facility] Blood CAPILLARY BLOOD / Unknown 10/11/2019 0:15 EDT 10/11/2019 0:16 EDT us Agnelina Gonzales DP POINT OF CARE TEST ORDERABLES F inal Result Performing Organization Address [facility]/ZIP Co de Phone Number [facility] [address] [place] [address] * (ABNORMAL) POCT GLUCOSE, INTERFACED (10/10/2019 21:03 EDT) Glucose, POC 287(H) 70 - 100 mg/dL 10/10/2019 21:07 EDT [facility] button spindler ID [id number] 10/10/2019 21:07 EDT [facility] HN LAB POC COMMENT (GLUCOSE) Test Performed by Nursing Services 10/10/2019 21:07 EDT [facility] Blood CAPILLARY BLOOD / Unknown 10/10/2019 21:03 EDT 10/10/2019 21:07 EDT us Raman Cary MD POINT OF CARE TEST ORDERAB LES Final Result Performing Organization Address City/[facility]/ZIP Co de Phone Number [facility] [address] [place] [address] * (ABNORMAL) POCT GLUCOSE, INTERFACED (10/10/2019 18:15 EDT) Glucose, POC 297(H) 70 - 100 mg/dL 10/10/2019 18:17 EDT [facility] button spindler ID [id number] 10/10/2019 18:17 EDT [facility] HN LAB POC COMMENT (GLUCOSE) Test Performed by Nursing Services 10/10/2019 18:17 EDT [facility] Blood CAPILLARY BLOOD / Unknown 10/10/2019 18:15 EDT 10/10/2019 18:17 EDT us Angelina Gonzales [facility] POINT OF CARE TEST ORDERABLES F inal Result Performing Organization Address [facility] Co de Phone Number [facility] [address] [place] [address] * (ABNORMAL) POCT GLUCOSE, INTERFACED (10/10/2019 13:20 EDT) Glucose, POC 245(H) 70 - 100 mg/dL 10/10/2019 13:21 EDT [facility] button spindler ID [id number] 10/10/2019 13:21 EDT [facility] HN LAB POC COMMENT (GLUCOSE) Test Performed by Nursing Services 10/10/2019 13:21 EDT [facility] Blood CAPILLARY BLOOD / Unknown 10/10/2019 13:20 EDT 10/10/2019 13:21 EDT us Angelina Medina Christian [facility] POINT OF CARE TEST ORDERABLES F inal Result Performing Organization Address [facility] Co de Phone Number [facility] [address] [place] [address] * (ABNORMAL) POCT GLUCOSE, INTERFACED (10/10/2019 7:37 EDT) Glucose, POC 269(H) 70 - 100 mg/dL 10/10/2019 7:39 EDT [facility] button spindler ID [id number] 10/10/2019 7:39 EDT [facility] HN LAB POC COMMENT (GLUCOSE) Test Performed by Nursing Services 10/10/2019 7:39 EDT [facility] Blood CAPILLARY BLOOD / Unknown 10/10/2019 7:37 EDT 10/10/2019 7:39 EDT Raman Cary MD POINT OF CARE TEST ORDERAB LES Final Result Performing Organization Address [facility]/ZIP Co de Phone Number [facility] [address] [place] [address] * (ABNORMAL) CREATININE (10/10/2019 6:32 EDT) Creatinine 0.58(L) 0.66 - 1.25 mg/dL 10/10/2019 8:00 EDT [facility] eGFR 113 >60 mL/min/1.7 3m2 10/10/2019 8:00 EDT [facility] Comment:eGFR calculated sarahi krishnan CKD-EPI equation for non- Americans. Multiply eGFR by 1.16 for patients. Blood VENOUS BLOOD / Unknown Venipuncture / Unknown 10/10/2019 6:32 EDT 10/10/2019 7:25 EDT Virgilio Ramirez MD CHEMISTRY & BLOOD GAS OR DERABLES Final Result Performing Organization Address [facility]/ZIP Co de Phone Number [facility] [address] [place] [address] * (ABNORMAL) POCT GLUCOSE, INTERFACED (10/09/2019 21:52 EDT) Glucose, POC 156(H) 70 - 100 mg/dL 10/09/2019 21:55 EDT [facility] button spindler ID [id number] 10/09/2019 21:55 EDT [facility] HN LAB POC COMMENT (GLUCOSE) Test Performed by Nursing Services 10/09/2019 21:55 EDT [facility] Blood CAPILLARY BLOOD / Unknown 10/09/2019 21:52 EDT 10/09/2019 21:55 EDT Angelina Gonzales DP POINT OF CARE TEST ORDERABLES F inal Result Performing Organization Address City/[facility]/ZIP Co de Phone Number [facility] [address] [place] [address] * (ABNORMAL) POCT GLUCOSE, INTERFACED (10/09/2019 17:16 EDT) Glucose, POC 111(H) 70 - 100 mg/dL 10/09/2019 17:21 EDT [facility] button spindler ID [id number] 10/09/2019 17:21 EDT [facility] HN LAB POC COMMENT (GLUCOSE) Test Performed by Nursing Services 10/09/2019 17:21 EDT [facility] Blood CAPILLARY BLOOD / Unknown 10/09/2019 17:16 EDT 10/09/2019 17:21 EDT us Angelina Gonzales DPM POINT OF CARE TEST ORDERABLES F inal Result [facility] [address] [place] [address] * SURGICAL PATHOLOGY (10/09/2019 16:11 EDT) Final [...] extending to bone resection margin 10/14/2019 10:13 [facility] Attestation There was significant resident/fellow involvement in the diagnostic evaluation of this case. By the signature below, the attending physician certifies that they have personally conducted a gross and/or microscopic examination of the described specimens and rendered or confirmed the above diagnosis. 10/14/2019 10:13 [facility] at 1013 Clinical History Acute osteomyelitis of right ankle or foot ([facility]) 10/14/2019 10:13 [facility] Gross Description A. Received [...] underlying bone is without areas of softening. Steno Pool Supervisor sections are submitted as follows: BLOCK DAVIS C1- skin and soft tissue margin en face, first metatarsal tissue C2- lateral soft tissue margin first metatarsal C3- first metatarsal margin en face, following acid decalcification C4- medial skin ulceration fourth metatarsal soft tissue margin Lauren Davidson 10/10/2019 14:36 10/14/2019 10:13 EDT [facility] Resident/Mickey w: Lb Gomes MD 10/14/2019 10:13 T [facility] Performing Lab [facility] 10:13 T [facility] Scanned Images 10/14/2019 10:13 T [facility] Tissue SPECIMEN FROM BONE / Unknown 10/09/2019 16:11 EDT 10/09/2019 21:35 EDT Tissue specimen (specimen) BONE STRUCTURE / Unknown 10/09/2019 16:12 EDT 10/09/2019 21:35 EDT Tissue specimen (specimen) AMPUTATED STRUCTURE / Unknown 10/09/2019 16:12 EDT 10/09/2019 21:35 EDT Angelina Carol Christian DPM PATHOLOGY ORDERABLES Final Resu lt [facility] [address] [place] [address] * (ABNORMAL) POCT GLUCOSE, INTERFACED (10/09/2019 14:41 EDT) Glucose, POC 107(H) 70 - 100 mg/dL 10/09/2019 14:42 EDT [facility] button spindler ID [id number] 10/09/2019 14:42 EDT [facility] HN LAB POC COMMENT (GLUCOSE) Test Performed by Nursing Services 10/09/2019 14:42 EDT [facility] Blood CAPILLARY BLOOD / Unknown 10/09/2019 14:41 EDT 10/09/2019 14:41 EDT Angelina Carol Christian DPM POINT OF CARE TEST ORDERABLES F inal Result Performing Organization Address City/[facility]/ZIP Co de Phone Number [facility] [address] [place] [address] * (ABNORMAL) POCT GLUCOSE, INTERFACED (10/09/2019 13:24 EDT) Glucose, POC 111(H) 70 - 100 mg/dL 10/09/2019 14:26 EDT [facility] button spindler ID [id number] 10/09/2019 14:26 EDT [facility] HN LAB POC COMMENT (GLUCOSE) Test Performed by Nursing Services 10/09/2019 14:26 EDT [facility] Blood CAPILLARY BLOOD / Unknown 10/09/2019 13:24 EDT 10/09/2019 14:26 EDT us Angelina Gonzales DPM POINT OF CARE TEST ORDERABLES F inal Result [facility] [address] [place] [address] * (ABNORMAL) POCT GLUCOSE, INTERFACED (10/09/2019 9:29 EDT) Glucose, POC 163(H) 70 - 100 mg/dL 10/09/2019 9:30 EDT [facility] button spindler ID [id number] 10/09/2019 9:30 EDT [facility] HN LAB POC COMMENT (GLUCOSE) Test Performed by Nursing Services 10/09/2019 9:30 EDT [facility] Blood CAPILLARY BLOOD / Unknown 10/09/2019 9:29 EDT 10/09/2019 9:30 EDT us Angelina Gonzales DP POINT OF CARE TEST ORDERABLES F inal Result Performing Organization Address [facility]/ZIP Co de Phone Number [facility] [address] [place] [address] * (ABNORMAL) POCT GLUCOSE, INTERFACED (10/09/2019 5:57 EDT) Glucose, POC 202(H) 70 - 100 mg/dL 10/09/2019 5:57 EDT [facility] button spindler ID [id number] 10/09/2019 5:57 EDT [facility] HN LAB POC COMMENT (GLUCOSE) Test Performed by Nursing Services 10/09/2019 5:57 EDT [facility] Blood CAPILLARY BLOOD / Unknown 10/09/2019 5:57 EDT 10/09/2019 5:57 EDT us Angelina Gonzales DP POINT OF CARE TEST ORDERABLES F inal Result [facility] [address] [place] [address] * VANCOMYCIN TROUGH (10/09/2019 3:31 EDT) Vancomycin Trough 13.1 10.0 - 20.0 ug/mlL 10/09/2019 4:24 EDT [facility] Draw Type Not Given 10/09/2019 4:24 EDT [facility] Blood VENOUS BLOOD / Unknown Venipuncture / Unknown 10/09/2019 3:31 EDT 10/09/2019 3:47 EDT us Virgilio Ramirez MD CHEMISTRY & BLOOD GAS OR DERABLES Final Result [facility] [address] [place] [address] * (ABNORMAL) POCT GLUCOSE, INTERFACED (10/08/2019 21:16 EDT) Glucose, POC 278(H) 70 - 100 mg/dL 10/08/2019 21:17 EDT [facility] [place]indler ID [id number] 10/08/2019 21:17 EDT [facility] HN LAB POC COMMENT (GLUCOSE) Test Performed by Nursing Services 10/08/2019 21:17 EDT [facility] Blood CAPILLARY BLOOD / Unknown 10/08/2019 21:16 EDT 10/08/2019 21:17 EDT us Angelina Gonzales DPM POINT OF CARE TEST ORDERABLES F inal Result Performing Organization Address [facility] [place]/[facility]/ZIP Co de Phone Number [facility] [address] [place] [address] * (ABNORMAL) POCT GLUCOSE, INTERFACED (10/08/2019 18:01 EDT) Glucose, POC 239(H) 70 - 100 mg/dL 10/08/2019 18:02 EDT [facility] button [place] ID [id number] 10/08/2019 18:02 EDT [facility] HN LAB POC COMMENT (GLUCOSE) Test Performed by Nursing Services 10/08/2019 18:02 EDT [facility] Blood CAPILLARY BLOOD / Unknown 10/08/2019 18:01 EDT 10/08/2019 18:02 EDT us Angelina Gonzales DPM POINT OF CARE TEST ORDERABLES F inal Result [facility] [address] [place] [address] * (ABNORMAL) POCT GLUCOSE, INTERFACED (10/08/2019 12:46 EDT) Glucose, POC 242(H) 70 - 100 mg/dL 10/08/2019 12:47 EDT [facility] button [place]ind[place] ID [id number] 10/08/2019 12:47 EDT [facility] HN LAB POC COMMENT (GLUCOSE) Test Performed by Nursing Services 10/08/2019 12:47 EDT [facility] Blood CAPILLARY BLOOD / Unknown 10/08/2019 12:46 EDT 10/08/2019 12:47 EDT us Angelina Gonzales DPM POINT OF CARE TEST ORDERABLES F inal Result [facility] [address] [place] [address] * ECG REPORT - SCANNED (10/08/2019 8:47 EDT) 10/08/2019 8:47 EDT us Scan 2 [employer] PROCEDURE/MINOR SURGICAL OR DERABLES Final Result * (ABNORMAL) PROTIME (10/08/2019 8:26 EDT) I.N.R. 1.4(H) 0.9 - 1.1 Ratio 10/08/2019 8:49 EDT [facility] Pro Time 16.8(H) 10.3 - 13.4 secs 10/08/2019 8:49 EDT [facility] Blood VENOUS BLOOD / Unknown Venipuncture / Unknown 10/08/2019 8:26 EDT 10/08/2019 8:33 EDT Narrative [facility] - 10/08/2019 8:49 EDT Moderate Intensity Coumadin INR = 2.0-3.0 Adjustments in anticoagulant therapy dose should be based on the INR and NOT on the Protime. us Rainer Cavazos MD HEMATOLOGY & PF4 ORDERABLES Sobia l Result Performing Organization Address City/[facility]/ZIP Co de Phone Number [facility] [address] [place] [address] * TYPE AND SCREEN (10/08/2019 8:26 EDT) Pathologist [facility] ABO A 10/08/2019 9:13 EDT [facility] Rh Factor Positive 10/08/2019 9:13 EDT [facility] Antibody Screen Negative 10/08/2019 9:13 EDT [facility] Specimen Expires: 10/11/2019 @ 23:59 10/08/2019 9:13 EDT [facility] Blood VENOUS BLOOD / Unknown Venipuncture / Unknown 10/08/2019 8:26 EDT 10/08/2019 8:34 EDT Rainer Cavazos MD BLOOD BANK TESTS Edited Result - Final Performing Organization Address [facility] [place]/[facility] Co de Phone Number [facility] [address] [facility] [place] [address] * (ABNORMAL) POCT GLUCOSE, INTERFACED (10/08/2019 8:19 EDT) [facility] Glucose, POC 209(H) 70 - 100 mg/dL 10/08/2019 8:22 EDT [facility] button spindler ID [id number] 10/08/2019 8:22 EDT [facility] HN LAB POC COMMENT (GLUCOSE) Test Performed by Nursing Services 10/08/2019 8:22 EDT [facility] Blood CAPILLARY BLOOD / Unknown 10/08/2019 8:19 EDT 10/08/2019 8:22 EDT us Angelina Gonzales DP POINT OF CARE TEST ORDERABLES F inal Result Performing Organization Address [facility] [place]/[facility]/ZIP Co de Phone Number [facility] [address] [place] [address] * (ABNORMAL) COMPLETE BLOOD COUNT (10/08/2019 6:25 EDT) [facility] WBC 7.35 4.00 - 10.40 K/cmm 10/08/2019 6:55 [facility] RBC 3.98(L) 4.36 - 5.78 M/cmm 10/08/2019 6:55 [facility] Hemoglobin 12.1(L) 13.8 - 17.3 gm/dL 10/08/2019 6:55 [facility] HCT 35.3(L) 39.5 - 50.2 % 10/08/2019 6:55 [facility] MCV 89 81 - 95 fl 10/08/2019 6:55 [facility] MCH 30.4 27.6 - 33.0 pg 10/08/2019 6:55 [facility] MCHC 34.3 32.8 - 36.4 gm/dL 10/08/2019 6:55 [facility] RDW-CV 12.8 <14.2 % 10/08/2019 6:55 [facility] RDW-SD 41.8 <46.0 fl 10/08/2019 6:55 [facility] PLT 311 141 - 377 K/cmm 10/08/2019 6:55 [facility] MPV 9.4(L) 9.5 - 12.7 fl 10/08/2019 6:55 [facility] Blood VENOUS BLOOD / Unknown Venipuncture / Unknown 10/08/2019 6:25 EDT 10/08/2019 6:48 EDT Sachin Niocle MD HEMATOLOGY & PF4 ORDERABLES Final Result [facility] [address] [place] [address] * (ABNORMAL) ELECTROLYTES (10/08/2019 6:25 EDT) Sodium 134(L) 136 - 145 mEq/L 10/08/2019 7:21 EDT [facility] Potassium 3.1(L) 3.5 - 5.0 mEq/L 10/08/2019 7:21 T [facility] Chloride 94(L) 96 - 110 mEq/L 10/08/2019 7:21 EDT [facility] CO2 Total 33(H) 22 - 32 mEq/L 10/08/2019 7:21 EDT [facility] Blood VENOUS BLOOD / Unknown Venipuncture / Unknown 10/08/2019 6:25 EDT 10/08/2019 6:48 EDT Sachin Nicole MD CHEMISTRY & BLOOD GAS ORDER ELIU Final Result Performing Organization Address [facility] [place]/[facility] [[email or web address]] de Phone Number [facility] [address] [place] [address] * (ABNORMAL) CREATININE (10/08/2019 6:25 EDT) Creatinine 0.59(L) 0.66 - 1.25 mg/dL 10/08/2019 7:21 EDT [facility] eGFR 112 >60 mL/min/1.7 3m2 10/08/2019 7:21 EDT [facility] Comment:eGFR calculated sarahi krishnan CKD-EPI equation for non- Americans. Multiply eGFR by 1.16 for patients. Blood VENOUS BLOOD / Unknown Venipuncture / Unknown 10/08/2019 6:25 EDT 10/08/2019 6:48 EDT us Sachin Nicole MD CHEMISTRY & BLOOD GAS ORDER ELIU Final Result Performing Organization Address [facility] [[email or web address]] de Phone Number [facility] [address] [place] [address] * (ABNORMAL) BUN (10/08/2019 6:25 EDT) BUN 6(L) 10 - 26 mg/dL 10/08/2019 7:21 EDT [facility] Blood VENOUS BLOOD / Unknown Venipuncture / Unknown 10/08/2019 6:25 EDT 10/08/2019 6:48 EDT Sachin Nicole MD CHEMISTRY & BLOOD GAS ORDER ELIU Final Result [facility] [address] [place] [address] * (ABNORMAL) POCT GLUCOSE, INTERFACED (10/07/2019 21:20 EDT) Glucose, POC 248(H) 70 - 100 mg/dL 10/07/2019 21:21 EDT [facility] [place] ID [id number] 10/07/2019 21:21 EDT [facility] HN LAB POC COMMENT (GLUCOSE) Test Performed by Nursing Services 10/07/2019 21:21 EDT [facility] Blood CAPILLARY BLOOD / Unknown 10/07/2019 21:20 EDT 10/07/2019 21:21 EDT us Angelina Gonzales [facility] POINT OF CARE TEST ORDERABLES F inal Result Performing Organization Address [facility] Co de Phone Number [facility] [address] [place] [address] * (ABNORMAL) POCT GLUCOSE, INTERFACED (10/07/2019 18:18 EDT) Glucose, POC 247(H) 70 - 100 mg/dL 10/07/2019 20:46 EDT [facility] button [place] ID [id number] 10/07/2019 20:46 EDT [facility] HN LAB POC COMMENT (GLUCOSE) Test Performed by Nursing Services 10/07/2019 20:46 EDT [facility] Blood CAPILLARY BLOOD / Unknown 10/07/2019 18:18 EDT 10/07/2019 20:46 EDT us Angelina Gonzales DP POINT OF CARE TEST ORDERABLES F inal Result Performing Organization Address City/[facility]/ZIP Co de Phone Number [facility] [address] [place] [address] * (ABNORMAL) POCT GLUCOSE, INTERFACED (10/07/2019 13:13 EDT) Glucose, POC 286(H) 70 - 100 mg/dL 10/07/2019 13:14 EDT [facility] button [place]ind[place] ID [id number] 10/07/2019 13:14 EDT [facility] HN LAB POC COMMENT (GLUCOSE) Test Performed by Nursing Services 10/07/2019 13:14 EDT [facility] Blood CAPILLARY BLOOD / Unknown 10/07/2019 13:13 EDT 10/07/2019 13:14 EDT us Angelina Medina Christian DPM POINT OF CARE TEST ORDERABLES F inal Result [facility] [address] [place] [address] * XR FOOT RIGHT 3 OR MORE [...] the above interpretation andagree with the findings. Rainer Cavazos MD IMG DIAGNOSTIC IMAGING ORDERABLE S Final Result * (ABNORMAL) POCT GLUCOSE, INTERFACED (10/07/2019 9:39 EDT) Glucose, POC 215(H) 70 - 100 mg/dL 10/07/2019 9:39 EDT [facility] [place] ID [id number] 10/07/2019 9:39 EDT [facility] HN LAB POC COMMENT (GLUCOSE) Test Performed by Nursing Services 10/07/2019 9:39 EDT [facility] Blood CAPILLARY BLOOD / Unknown 10/07/2019 9:39 EDT 10/07/2019 9:39 EDT Angelina Gonzales DPM POINT OF CARE TEST ORDERABLES F inal Result Performing Organization Address City/[facility]/ZIP Co de Phone Number [facility] [address] [place] [address] * (ABNORMAL) GLUCOSE, SERUM (10/07/2019 6:28 EDT) Glucose 203(H) 70 - 100 mg/dL 10/07/2019 7:15 EDT [facility] Blood VENOUS BLOOD / Unknown Venipuncture / Unknown 10/07/2019 6:28 EDT 10/07/2019 6:42 EDT Js Meza MD CHEMISTRY & BLOOD GAS ORDERABLES Final Result Performing Organization Address City/[facility]/ZIP Co de Phone Number [facility] [address] [place] [address] * (ABNORMAL) COMPLETE BLOOD COUNT AND DIFFERENTIAL (10/07/2019 6:28 EDT) WBC 10.35 4.00 - 10.40 K/cmm 10/07/2019 6[facility] RBC 3.74(L) 4.36 - 5.78 M/cmm 10/07/2019 6:49 [facility] Hemoglobin 11.3(L) 13.8 - 17.3 gm/dL 10/07/2019 6:49 [facility] HCT 33.4(L) 39.5 - 50.2 % 10/07/2019 6:49 [facility] MCV 89 81 - 95 fl 10/07/2019 6:49 [facility] MCH 30.2 27.6 - 33.0 pg 10/07/2019 6:49 [facility] MCHC 33.8 32.8 - 36.4 gm/dL 10/07/2019 6:49 [facility] RDW-CV 12.6 <14.2 % 10/07/2019 6:49 [facility] RDW-SD 41.6 <46.0 fl 10/07/2019 6:49 [facility] PLT 305 141 - 377 K/cmm 10/07/2019 6:49 [facility] MPV 9.5 9.5 - 12.7 fl 10/07/2019 6:49 [facility] % Neutrophils 76.9 % 10/07/2019 6:49 [facility] % Lymphocytes 15.1 % 10/07/2019 6:49 [facility] % Monocytes 4.6 % 10/07/2019 6:49 [facility] % Eosinophils 1.6 % 10/07/2019 6:49 [facility] % Basophils 0.4 % 10/07/2019 6:49 [facility] % Immature Grans 1.4 % 10/07/19 20 6:49 EDT [facility] Absolute Neutrophils 7.96 2.20 - 8.85 K/cmm 10/07/2019 6:49 [facility] Absolute Lymphocytes 1.56 1.09 - 3.30 K/cmm 10/07/2019 6:49 [facility] Absolute Monocytes 0.48 0.10 - 0.80 K/cmm 10/07/2019 6:49 [facility] Absolute Eosinophils 0.17 0.03 - 0.61 K/cmm 10/07/2019 6:49 [facility] ABS Basophils 0.04 0.01 - 0.11 K/cmm 10/07/2019 6:49 [facility] Absolute Immature Grans 0.14(H) 0.00 - 0.06 K/cmm 10/07/2019 6:49 [facility] Type of Differential: Auto 10/07/2019 6:49 [facility] Blood VENOUS BLOOD / Unknown Venipuncture / Unknown 10/07/2019 6:28 EDT 10/07/2019 6:42 EDT us Luke Seeker PACKAGES & DNA PROBE ORDERABLES Final Result [facility] [address] [place] [address] * (ABNORMAL) ELECTROLYTES (10/07/2019 6:28 EDT) Sodium 131(L) 136 - 145 mEq/L 10/07/2019 7:15 T [facility] Potassium 3.2(L) 3.5 - 5.0 mEq/L 10/07/2019 7:15 [facility] Chloride 94(L) 96 - 110 mEq/L 10/07/2019 7:15 [facility] CO2 Total 29 22 - 32 mEq/L 10/07/2019 7:15 [facility] Blood VENOUS BLOOD / Unknown Venipuncture / Unknown 10/07/2019 6:28 EDT 10/07/2019 6:42 EDT us Js Meza MD CHEMISTRY & BLOOD GAS ORDERABLES Final Result [facility] [address] [place] [address] * (ABNORMAL) CREATININE (10/07/2019 6:28 EDT) Creatinine 0.53(L) 0.66 - 1.25 mg/dL 10/07/2019 7:15 EDT [facility] eGFR 117 >60 mL/min/1.7 3m2 10/07/2019 7:15 EDT [facility] Comment:eGFR calculated sarahi krishnan CKD-EPI equation for non- Americans. Multiply eGFR by 1.16 for patients. Blood VENOUS BLOOD / Unknown Venipuncture / Unknown 10/07/2019 6:28 EDT 10/07/2019 6:42 EDT us Js Meza MD CHEMISTRY & BLOOD GAS ORDERABLES Final Result [facility] [address] [place] [address] * (ABNORMAL) BUN (10/07/2019 6:28 EDT) BUN 7(L) 10 - 26 mg/dL 10/07/2019 7:15 EDT [facility] Blood VENOUS BLOOD / Unknown Venipuncture / Unknown 10/07/2019 6:28 EDT 10/07/2019 6:42 EDT us Js Meza MD CHEMISTRY & BLOOD GAS ORDERABLES Final Result [facility] [address] [place] [address] * (ABNORMAL) POCT GLUCOSE, INTERFACED (10/06/2019 21:49 EDT) Glucose, POC 202(H) 70 - 100 mg/dL 10/06/2019 21:50 EDT [facility] [place] ID [id number] 10/06/2019 21:50 EDT [facility] HN LAB POC COMMENT (GLUCOSE) Test Performed by Nursing Services 10/06/2019 21:50 EDT [facility] Blood CAPILLARY BLOOD / Unknown 10/06/2019 21:49 EDT 10/06/2019 21:50 EDT us Angelina Gonzales [facility] POINT OF CARE TEST ORDERABLES F inal Result Performing Organization Address [facility] [place] [[email or web address]] de Phone Number [facility] [address] [place] [address] * (ABNORMAL) POCT GLUCOSE, INTERFACED (10/06/2019 19:32 EDT) Glucose, POC 275(H) 70 - 100 mg/dL 10/06/2019 19:33 EDT [facility] button [place]ind[place] ID [id number] 10/06/2019 19:33 EDT [facility] HN LAB POC COMMENT (GLUCOSE) Test Performed by Nursing Services 10/06/2019 19:33 EDT [facility] Blood CAPILLARY BLOOD / Unknown 10/06/2019 19:32 EDT 10/06/2019 19:33 EDT us Angelina Gonzales [facility] POINT OF CARE TEST ORDERABLES F inal Result Performing Organization Address [facility] de Phone Number [facility] [address] [place] [address] * (ABNORMAL) POCT GLUCOSE, INTERFACED (10/06/2019 18:47 EDT) Glucose, POC 275(H) 70 - 100 mg/dL 10/06/2019 18:48 EDT [facility] button [place]ind[place] ID [id number] 10/06/2019 18:48 EDT [facility] HN LAB POC COMMENT (GLUCOSE) Test Performed by Nursing Services 10/06/2019 18:48 EDT [facility] Blood CAPILLARY BLOOD / Unknown 10/06/2019 18:47 EDT 10/06/2019 18:48 EDT Angelina Gonzales DP POINT OF CARE TEST ORDERABLES F inal Result [facility] [address] [place] [address] * (ABNORMAL) VANCOMYCIN TROUGH (10/06/2019 15:30 EDT) Vancomycin Trough 9.9(L) 10.0 - 20.0 ug/mlL 10/06/2019 16:20 EDT [facility] Draw Type Not Given 10/06/2019 16:20 EDT [facility] Blood VENOUS BLOOD / Unknown Venipuncture / Unknown 10/06/2019 15:30 EDT 10/06/2019 15:46 EDT Virgilio Ramirez MD CHEMISTRY & BLOOD GAS OR DERABLES Final Result Performing Organization Address [facility] Co de Phone Number [facility] [address] [place] [address] * (ABNORMAL) POCT GLUCOSE, INTERFACED (10/06/2019 14:03 EDT) Glucose, POC 260(H) 70 - 100 mg/dL 10/06/2019 14:14 EDT [facility] [place] ID [id number] 10/06/2019 14:14 EDT [facility] HN LAB POC COMMENT (GLUCOSE) Test Performed by Nursing Services 10/06/2019 14:14 EDT [facility] Blood CAPILLARY BLOOD / Unknown 10/06/2019 14:03 EDT 10/06/2019 14:14 EDT Angelina Gonzales DP POINT OF CARE TEST ORDERABLES F inal Result Performing Organization Address City/[facility]/ZIP Co de Phone Number [facility] [address] [place] [address] * (ABNORMAL) POCT GLUCOSE, INTERFACED (10/06/2019 9:46 EDT) Glucose, POC 180(H) 70 - 100 mg/dL 10/06/2019 9:47 EDT [facility] [place] ID [id number] 10/06/2019 9:47 EDT [facility] HN LAB POC COMMENT (GLUCOSE) Test Performed by Nursing Services 10/06/2019 9:47 EDT [facility] Blood CAPILLARY BLOOD / Unknown 10/06/2019 9:46 EDT 10/06/2019 9:46 EDT Angelina Gonzales DPM POINT OF CARE TEST ORDERABLES F inal Result [facility] [address] [place] [address] * (ABNORMAL) HEMOGLOBIN A1C (10/06/2019 7:54 EDT) Pathologist [facility] Hemoglobin A1c 15.8(H) <5.7 % 10/06/2019 15:34 EDT [facility] Comment: Glycemic Status References: Normal: [...] Avg Glucose 407 mg/dL 0 15:34 EDT [facility] Comment:The eAG represents t he A1c result expressed as average glucose in mg/dL. Blood VENOUS BLOOD / Unknown Venipuncture / Unknown 10/06/2019 7:54 EDT 10/06/2019 8:31 EDT us iVrgilio Ramirez MD CHEMISTRY & BLOOD GAS OR DERABLES Final Result [facility] [address] [place] [address] * (ABNORMAL) COMPLETE BLOOD COUNT (10/06/2019 7:54 EDT) WBC 13.80(H) 4.00 - 10.40 K/cmm 10/06/2019 9:51 EDT [facility] RBC 3.74(L) 4.36 - 5.78 M/cmm 10/06/2019 9:51 EDT [facility] Hemoglobin 11.3(L) 13.8 - 17.3 gm/dL 10/06/2019 9:51 [facility] HCT 32.7(L) 39.5 - 50.2 % 10/06/2019 9:51 [facility] MCV 87 81 - 95 fl 10/06/2019 9:51 [facility] MCH 30.2 27.6 - 33.0 pg 10/06/2019 9:51 EDT [facility] MCHC 34.6 32.8 - 36.4 gm/dL 10/06/2019 9:51 [facility] RDW-CV 12.4 <14.2 % 10/06/2019 9:51 [facility] RDW-SD 40.3 <46.0 fl 10/06/2019 9:51 [facility] PLT 294 141 - 377 K/cmm 10/06/2019 9:51 T [facility] MPV 9.9 9.5 - 12.7 fl 10/06/2019 9:51 [facility] Blood VENOUS BLOOD / Unknown Venipuncture / Unknown 10/06/2019 7:54 EDT 10/06/2019 8:31 EDT Sachin Nicole MD HEMATOLOGY & PF4 ORDERABLES Final Result [facility] [address] [place] [address] * (ABNORMAL) SCREENING GLUCOSE (10/06/2019 7:54 EDT) Pathologist [facility] Glucose, Screening 201(H) 70 - 100 mg/dL 10/06/2019 9:13 EDT [facility] Comment:Elevated screening g lucose value greater than 180 mg/dl, please order follow up Hemoglobin A1C. Blood VENOUS BLOOD / Unknown Venipuncture / Unknown 10/06/2019 7:54 EDT 10/06/2019 8:31 EDT Sachin Nicole MD CHEMISTRY & BLOOD GAS ORDER ELIU Final Result [facility] [address] [place] [address] * (ABNORMAL) COMPLETE BLOOD COUNT AND DIFFERENTIAL (10/06/2019 7:54 EDT) [facility] WBC 13.80(H) 4.00 - 10.40 K/cmm 10/06/2019 8:52 [facility] RBC 3.74(L) 4.36 - 5.78 M/cmm 10/06/2019 8:52 [facility] Hemoglobin 11.3(L) 13.8 - 17.3 gm/dL 10/06/2019 8:52 [facility] HCT 32.7(L) 39.5 - 50.2 % 10/06/2019 8:52 [facility] MCV 87 81 - 95 fl 10/06/2019 8:52 [facility] MCH 30.2 27.6 - 33.0 pg 10/06/2019 8:52 [facility] MCHC 34.6 32.8 - 36.4 gm/dL 10/06/2019 8:52 [facility] RDW-CV 12.4 <14.2 % 10/06/2019 8:52 [facility] RDW-SD 40.3 <46.0 fl 10/06/2019 8:52 [facility] PLT 294 141 - 377 K/cmm 10/06/2019 8:52 [facility] MPV 9.9 9.5 - 12.7 fl 10/06/2019 8:52 [facility] % Neutrophils 80.3 % 10/06/2019 8:52 [facility] % Lymphocytes 11.2 % 10/06/2019 8:52 [facility] % Monocytes 5.7 % 10/06/2019 8:52 [facility] % Eosinophils 0.9 % 10/06/2019 8:52 [facility] % Basophils 0.4 % 10/06/2019 8:52 [facility] % Immature Grans 1.5 % 10/06/19 20 8:52 [facility] Absolute Neutrophils 11.08(H) 2.20 - 8.85 K/cmm 10/06/2019 8:52 [facility] Absolute Lymphocytes 1.54 1.09 - 3.30 K/cmm 10/06/2019 8:52 [facility] Absolute Monocytes 0.79 0.10 - 0.80 K/cmm 10/06/2019 8:52 [facility] Absolute Eosinophils 0.13 0.03 - 0.61 K/cmm 10/06/2019 8:52 [facility] ABS Basophils 0.05 0.01 - 0.11 K/cmm 10/06/2019 8:52 [facility] Absolute Immature Grans 0.21(H) 0.00 - 0.06 K/cmm 10/06/2019 8:52 [facility] Type of Differential: Auto 10/06/2019 8:52 [facility] Blood VENOUS BLOOD / Unknown Venipuncture / Unknown 10/06/2019 7:54 EDT 10/06/2019 8:31 EDT us Luke Seeker PACKAGES & DNA PROBE ORDERABLES Final Result [facility] [address] [place] [address] * (ABNORMAL) ELECTROLYTES (10/06/2019 7:54 EDT) Sodium 131(L) 136 - 145 mEq/L 10/06/2019 8:57 EDT [facility] Potassium 3.0(L) 3.5 - 5.0 mEq/L 10/06/2019 8:57 EDT [facility] Chloride 94(L) 96 - 110 mEq/L 10/06/2019 8:57 EDT [facility] CO2 Total 30 22 - 32 mEq/L 10/06/2019 8:57 EDT [facility] Blood VENOUS BLOOD / Unknown Venipuncture / Unknown 10/06/2019 7:54 EDT 10/06/2019 8:31 EDT us Js Meza MD CHEMISTRY & BLOOD GAS ORDERABLES Final Result Performing Organization Address [facility] [place]/[facility] Co de Phone Number [facility] [address] [place] [address] * (ABNORMAL) CREATININE (10/06/2019 7:54 EDT) Creatinine 0.51(L) 0.66 - 1.25 mg/dL 10/06/2019 8:57 EDT [facility] eGFR 119 >60 mL/min/1.7 3m2 10/06/2019 8:57 EDT [facility] Comment:eGFR calculated sarahi krishnan CKD-EPI equation for non- Americans. Multiply eGFR by 1.16 for patients. Blood VENOUS BLOOD / Unknown Venipuncture / Unknown 10/06/2019 7:54 EDT 10/06/2019 8:31 EDT us Js Meza MD CHEMISTRY & BLOOD GAS ORDERABLES Final Result [facility] [address] [place] [address] * (ABNORMAL) BUN (10/06/2019 7:54 EDT) BUN 6(L) 10 - 26 mg/dL 10/06/2019 8:57 EDT [facility] Blood VENOUS BLOOD / Unknown Venipuncture / Unknown 10/06/2019 7:54 EDT 10/06/2019 8:31 EDT Js Meza MD CHEMISTRY & BLOOD GAS ORDERABLES Final Result [facility] [address] [place] [address] * (ABNORMAL) POCT GLUCOSE, INTERFACED (10/05/2019 22:07 EDT) Glucose, POC 159(H) 70 - 100 mg/dL 10/05/2019 22:07 EDT [facility] button [place] ID [id number] 10/05/2019 22:07 EDT [facility] HN LAB POC COMMENT (GLUCOSE) Test Performed by Nursing Services 10/05/2019 22:07 EDT [facility] Blood CAPILLARY BLOOD / Unknown 10/05/2019 22:07 EDT 10/05/2019 22:07 EDT Angelina Gonzales [facility] POINT OF CARE TEST ORDERABLES F inal Result Performing Organization Address [facility] [place]/[facility]/ZIP Co de Phone Number [facility] [address] [place] [address] * (ABNORMAL) POCT GLUCOSE, INTERFACED (10/05/2019 19:11 EDT) Glucose, POC 211(H) 70 - 100 mg/dL 10/05/2019 19:12 EDT [facility] [place] ID [id number] 10/05/2019 19:12 EDT [facility] HN LAB POC COMMENT (GLUCOSE) Test Performed by Nursing Services 10/05/2019 19:12 EDT [facility] Blood CAPILLARY BLOOD / Unknown 10/05/2019 19:11 EDT 10/05/2019 19:12 EDT us Angelina Gonzales DP POINT OF CARE TEST ORDERABLES F inal Result Performing Organization Address City/[facility]/ZIP Co de Phone Number [facility] [address] [place] [address] * (ABNORMAL) ANAEROBE CULTURE/SMEAR(INC. AEROBES), OTHER (10/05/2019 13:36 EDT) Organism ID Moderate Streptococcus anginosus group(A) 10/10/2019 14:01 [facility] Comment: Penicillin and ampicillin are drugs of choice for treatment of beta hemolytic streptococcal infections. [place] morphology consistent with other culture from same site/ source collected on the same day. Organism ID Enterococcus avium(A) 10/10/2019 14:01 [facility] Comment:[place] morphology co nsistent with other culture from same site/ source collected on the same day. Organism ID Few Escherichia coli(A) 10/10/2019 14:01 [facility] Comment:[place] morphology co nsistent with other culture from same site/ source collected on the same day. Organism ID Few Staphylococcus aureus(A) 10/10/2019 14:01 [facility] Comment: Susceptible to nafcillin, cephalosporins and other beta lactam antibiotics (mecA gene product absent). [place] morphology consistent with other culture from same site/ source collected on the same day. Organism ID Moderate aerobic Gram positive bacilli(A) 10/10/2019 14:01 [facility] Organism ID Few Alcaligenes faecalis(A) 10/10/2019 14:01 [facility] Comment:[place] morphology co nsistent with other culture from same site/ source collected on the same day. Organism ID Heavy Mixed anaerobic growth, including Bacteroides fragilis group. [place] morphology consistent with other culture from same site/ source collected on the same day. (A) 10/10/2019 14:01 [facility] Organism ID Heavy Streptococcus intermedius(A) 10/10/2019 14:01 [facility] Comment:[place] morphology co nsistent with other culture from same site/ source collected on the same day. Smear Many Neutrophils Present(A) 10/10/2019 14:01 [facility] Smear Many Mixed gram positive and gram negative organisms(A) 10/10/2019 14:01 [facility] Tissue SOFT TISSUE / Unknown 10/05/2019 13:36 EDT 10/05/2019 14:26 EDT us Virgilio Ramirez MD MICROBIOLOGY - GENERAL O RDERABLES Final Result [facility] [address] [place] [address] * (ABNORMAL) ANAEROBE CULTURE/SMEAR(INC. AEROBES), OTHER (10/05/2019 13:35 EDT) Organism ID Moderate Streptococcus anginosus group(A) 0 13:54 EDT [facility] Comment: Penicillin and ampicillin are drugs of choice for treatment of beta hemolytic streptococcal infections. [place] morphology consistent with other culture from same site/ source collected on the same day. Organism ID Few Staphylococcus aureus(A) 0 13:54 EDT [facility] Comment: Susceptible to nafcillin, cephalosporins and other beta lactam antibiotics (mecA gene product absent). [place] morphology consistent with other culture from same site/ source collected on the same day. Organism ID Rare Staphylococcus simulans(A) VITEK SUSCEPTIBILITY 0 13:54 EDT [facility] Organism ID Rare Alcaligenes faecalis(A) 0 13:54 EDT [facility] Comment:[place] morphology co nsistent with other culture from same site/ source collected on the same day. Organism ID Heavy Mixed anaerobic growth, including Bacteroides fragilis group. [place] morphology consistent with other culture from same site/ source collected on the same day. (A) 0 13:54 EDT [facility] Organism ID Heavy Streptococcus intermedius(A) 0 13:54 EDT [facility] Comment:[place] morphology co nsistent with other culture from same site/ source collected on the same day. Organism ID Few Enterococcus avium(A) 0 13:54 EDT [facility] Comment:[place] morphology co nsistent with other culture from same site/ source collected on the same day. Smear Moderate Neutrophils Present(A) 0 13:54 EDT [facility] Smear Moderate Mixed gram positive and gram negative organisms(A) 0 13:54 EDT [facility] Tissue SPECIMEN FROM BONE / [...] MICROBIOLOGY - GENERAL O RDERABLES Final Result [facility] [address] [place] [address] * (ABNORMAL) ANAEROBE CULTURE/SMEAR(INC. AEROBES), OTHER (10/05/2019 13:34 EDT) Organism ID Moderate Streptococcus anginosus group(A) 0 13:42 EDT [facility] Comment:Penicillin and ampic illin are drugs of choice for treatment of beta hemolytic streptococcal infections. Organism ID Few Enterococcus avium(A) VITEK SUSCEPTIBILITY 0 13:42 EDT [facility] Comment:For ampicillin susce ptible enterococci, the preferred treatment is ampicillin (with an aminoglycoside for serious infections). Organism ID Few Escherichia coli(A) VITEK SUSCEPTIBILITY 0 13:42 EDT [facility] Organism ID Few Staphylococcus aureus(A) VITEK SUSCEPTIBILITY 0 13:42 EDT [facility] Comment:Susceptible to nafci llin, cephalosporins and other beta lactam antibiotics (mecA gene product absent). Organism ID Few Alcaligenes faecalis(A) 0 13:42 EDT [facility] Organism ID Moderate Mixed anaerobic growth, including Bacteroides fragilis group.(A) 0 13:42 EDT [facility] Smear Many Neutrophils Present(A) 0 13:42 EDT [facility] Smear Moderate Mixed gram positive and gram negative organisms(A) 0 13:42 EDT [facility] Tissue SPECIMEN FROM BONE / [...] faecalis Tobramycin MICRO SUSCEPTIBILITY 8 ug/mL: Intermediate Virgiilo Ramirez MD MICROBIOLOGY - GENERAL O RDERABLES Final Result [facility] [address] [place] [address] * (ABNORMAL) POCT GLUCOSE, INTERFACED (10/05/2019 11:03 EDT) Glucose, POC 130(H) 70 - 100 mg/dL 10/05/2019 11:04 EDT [facility] button [place]indler ID [id number] 10/05/2019 11:04 EDT [facility] HN LAB POC COMMENT (GLUCOSE) Test Performed by Nursing Services 10/05/2019 11:04 EDT [facility] Blood CAPILLARY BLOOD / Unknown 10/05/2019 11:03 EDT 10/05/2019 11:04 EDT Js Meza MD POINT OF CARE TEST ORDERABLES Fi nal Result Performing Organization Address City/[facility]/ZIP Co de Phone Number [facility] [address] [place] [address] * (ABNORMAL) GLUCOSE, SERUM (10/05/2019 7:22 EDT) Glucose 150(H) 70 - 100 mg/dL 10/05/2019 8:26 EDT [facility] Blood VENOUS BLOOD / Unknown Venipuncture / Unknown 10/05/2019 7:22 EDT 10/05/2019 7:53 EDT Js Meza MD CHEMISTRY & BLOOD GAS ORDERABLES Final Result [facility] [address] [place] [address] * (ABNORMAL) COMPLETE BLOOD COUNT AND DIFFERENTIAL (10/05/2019 7:22 EDT) WBC 14.09(H) 4.00 - 10.40 K/cmm 10/05/2019 8:08 [facility] RBC 4.00(L) 4.36 - 5.78 M/cmm 10/05/2019 8:08 [facility] Hemoglobin 12.2(L) 13.8 - 17.3 gm/dL 10/05/2019 8:08 [facility] HCT 34.6(L) 39.5 - 50.2 % 10/05/2019 8:08 [facility] MCV 87 81 - 95 fl 10/05/2019 8:08 [facility] MCH 30.5 27.6 - 33.0 pg 10/05/2019 8:08 [facility] MCHC 35.3 32.8 - 36.4 gm/dL 10/05/2019 8:08 [facility] RDW-CV 12.2 <14.2 % 10/05/2019 8:08 [facility] RDW-SD 38.9 <46.0 fl 10/05/2019 8:08 [facility] PLT 295 141 - 377 K/cmm 10/05/2019 8:08 [facility] MPV 10.2 9.5 - 12.7 fl 10/05/2019 8:08 [facility] % Neutrophils 81.1 % 10/05/2019 8:08 [facility] % Lymphocytes 11.5 % 10/05/2019 8:08 [facility] % Monocytes 5.0 % 10/05/2019 8:08 [facility] % Eosinophils 0.9 % 10/05/2019 8:08 [facility] % Basophils 0.4 % 10/05/2019 8:08 [facility] % Immature Grans 1.1 % 10/05/19 20 8:08 [facility] Absolute Neutrophils 11.43(H) 2.20 - 8.85 K/cmm 10/05/2019 8:08 [facility] Absolute Lymphocytes 1.62 1.09 - 3.30 K/cmm 10/05/2019 8:08 [facility] Absolute Monocytes 0.71 0.10 - 0.80 K/cmm 10/05/2019 8:08 [facility] Absolute Eosinophils 0.13 0.03 - 0.61 K/cmm 10/05/2019 8:08 [facility] ABS Basophils 0.05 0.01 - 0.11 K/cmm 10/05/2019 8:08 [facility] Absolute Immature Grans 0.15(H) 0.00 - 0.06 K/cmm 10/05/2019 8:08 [facility] Type of Differential: Auto 10/05/2019 8:08 [facility] Blood VENOUS BLOOD / Unknown Venipuncture / Unknown 10/05/2019 7:22 EDT 10/05/2019 7:53 EDT Luke Seeker PACKAGES & DNA PROBE ORDERABLES Final Result [facility] [address] [place] [address] * (ABNORMAL) ELECTROLYTES (10/05/2019 7:22 EDT) Sodium 133(L) 136 - 145 mEq/L 10/05/2019 8:35 [facility] Potassium 3.7 3.5 - 5.0 mEq/L 10/05/2019 8:35 [facility] Comment:Slight hemolysis terry ntified, interpret with caution as hemolysis will elevate potassium result. Chloride 96 96 - 110 mEq/L 10/05/2019 8:35 [facility] CO2 Total 27 22 - 32 mEq/L 10/05/2019 8:35 [facility] Blood VENOUS BLOOD / Unknown Venipuncture / Unknown 10/05/2019 7:22 EDT 10/05/2019 7:53 EDT us Js Meza MD CHEMISTRY & BLOOD GAS ORDERABLES Final Result Performing Organization Address City/[facility]/ZIP Co de Phone Number [facility] [address] [place] [address] * (ABNORMAL) CREATININE (10/05/2019 7:22 EDT) Pathologist [facility] Creatinine 0.50(L) 0.66 - 1.25 mg/dL 10/05/2019 8:26 EDT [facility] eGFR 120 >60 mL/min/1.7 3m2 10/05/2019 8:26 EDT [facility] Comment:eGFR calculated sarhai krishnan CKD-EPI equation for non- Americans. Multiply eGFR by 1.16 for patients. Blood VENOUS BLOOD / Unknown Venipuncture / Unknown 10/05/2019 7:22 EDT 10/05/2019 7:53 EDT us Js Meza MD CHEMISTRY & BLOOD GAS ORDERABLES Final Result Performing Organization Address [facility] [place]/[facility] Co de Phone Number [facility] [address] [place] [address] * BUN (10/05/2019 7:22 EDT) [facility] BUN 12 10 - 26 mg/dL 10/05/2019 8:35 EDT [facility] Comment: Slight hemolysis identified, interpret with caution as results may be affected due to hemolysis. Blood VENOUS BLOOD / Unknown Venipuncture / Unknown 10/05/2019 7:22 EDT 10/05/2019 7:53 EDT us Js Meza MD CHEMISTRY & BLOOD GAS ORDERABLES Final Result Performing Organization Address City/[facility]/ZIP Co de Phone Number [facility] [address] [place] [address] * (ABNORMAL) POCT GLUCOSE, INTERFACED (10/05/2019 5:14 EDT) Pathologist [facility] Glucose, POC 196(H) 70 - 100 mg/dL 10/05/2019 6:45 EDT [facility] [place] ID [id number] 10/05/2019 6:45 EDT [facility] HN LAB POC COMMENT (GLUCOSE) Test Performed by Nursing Services 10/05/2019 6:45 EDT [facility] Blood CAPILLARY BLOOD / Unknown 10/05/2019 5:14 EDT 10/05/2019 6:45 EDT Js Meza MD POINT OF CARE TEST ORDERABLES Fi nal Result Performing Organization Address City/[facility]/ZIP Co de Phone Number [facility] [address] [place] [address] * (ABNORMAL) POCT GLUCOSE, INTERFACED (10/05/2019 1:45 EDT) Glucose, POC 164(H) 70 - 100 mg/dL 10/05/2019 3:31 EDT [facility] button [place] ID [id number] 10/05/2019 3:31 EDT [facility] HN LAB POC COMMENT (GLUCOSE) Test Performed by Nursing Services 10/05/2019 3:31 EDT [facility] Blood CAPILLARY BLOOD / Unknown 10/05/2019 1:45 EDT 10/05/2019 3:31 EDT Sachin Nicole MD POINT OF CARE TEST ORDERABL ES Final Result Performing Organization Address [facility] [place]/[facility]/ZIP Co de Phone Number [facility] [address] [place] [address] * (ABNORMAL) POCT GLUCOSE, INTERFACED (10/04/2019 23:42 EDT) Glucose, POC 173(H) 70 - 100 mg/dL 10/04/2019 23:44 EDT [facility] button spindler ID [id number] 10/04/2019 23:44 EDT [facility] HN LAB POC COMMENT (GLUCOSE) Test Performed by Nursing Services 10/04/2019 23:44 EDT [facility] Blood CAPILLARY BLOOD / Unknown 10/04/2019 23:42 EDT 10/04/2019 23:43 EDT Virgilio Ramirez MD POINT OF CARE TEST ORDER ELIU Final Result [facility] [address] [place] [address] * (ABNORMAL) POCT GLUCOSE, INTERFACED (10/04/2019 22:05 EDT) Glucose, POC 203(H) 70 - 100 mg/dL 10/04/2019 22:06 EDT [facility] button spind[place] ID [id number] 10/04/2019 22:06 EDT [facility] HN LAB POC COMMENT (GLUCOSE) Test Performed by Nursing Services 10/04/2019 22:06 EDT [facility] Blood CAPILLARY BLOOD / Unknown 10/04/2019 22:05 EDT 10/04/2019 22:06 EDT Sachin Nicole MD POINT OF CARE TEST ORDERABL ES Final Result Performing Organization Address [facility] [place]/[facility]/ZIP Co de Phone Number [facility] [address] [place] [address] * (ABNORMAL) POCT GLUCOSE, INTERFACED (10/04/2019 20:07 EDT) Glucose, POC 257(H) 70 - 100 mg/dL 10/04/2019 20:12 EDT [facility] [place] ID [id number] 10/04/2019 20:12 EDT [facility] HN LAB POC COMMENT (GLUCOSE) Test Performed by Nursing Services 10/04/2019 20:12 EDT [facility] Blood CAPILLARY BLOOD / Unknown 10/04/2019 20:07 EDT 10/04/2019 20:11 EDT Js Meza MD POINT OF CARE TEST ORDERABLES Fi nal Result Performing Organization Address City/[facility]/ZIP Co de Phone Number [facility] [address] [place] [address] * (ABNORMAL) BACTERIAL CULTURE - FOR [facility] MICRO LAB USE ONLY (10/04/2019 17:44 EDT) Organism ID Moderate Staphylococcus aureus(A) VITEK SUSCEPTIBILITY 0 12:23 EDT [facility] Comment:Susceptible to nafci llin, cephalosporins and other beta lactam antibiotics (mecA gene product absent). Swab ENTIRE NARIS / Unknown Swab / Unknown 10/04/2019 17:44 EDT 10/04/2019 21:58 EDT Virgilio Ramirez MD MICROBIOLOGY - GENERAL O RDERABLES Final Result Performing Organization Address [facility] [place]/[facility] [[email or web address]] de Phone Number [facility] [address] [place] [address] * (ABNORMAL) POCT GLUCOSE, INTERFACED (10/04/2019 17:28 EDT) Pathologist [facility] Glucose, POC 309(H) 70 - 100 mg/dL 10/04/2019 17:30 EDT [facility] [place] ID [id number] 10/04/2019 17:30 EDT [facility] HN LAB POC COMMENT (GLUCOSE) Test Performed by Nursing Services 10/04/2019 17:30 EDT [facility] Blood CAPILLARY BLOOD / Unknown 10/04/2019 17:28 EDT 10/04/2019 17:30 EDT Js Meza MD POINT OF CARE TEST ORDERABLES Fi nal Result Performing Organization Address [facility] [[email or web address]] de Phone Number [facility] [address] [place] [id number] * PTT (10/04/2019 14:31 EDT) Pathologist [facility] PTT 28 26 - 37 secs 10/04/2019 15:12 EDT [facility] Blood VENOUS BLOOD / Unknown Venipuncture / Unknown 10/04/2019 14:31 EDT 10/04/2019 14:36 EDT us Js Meza MD HEMATOLOGY & PF4 ORDERABLES Sobia l Result Performing Organization Address City/[facility]/ZIP Co de Phone Number [facility] [address] [place] [address] * (ABNORMAL) VITAMIN D (25,OH) (10/04/2019 13:02 EDT) [facility] 25OH Vitamin D Tot 13.1(L) 30.0 - 100.0 ng/mL 10/06/2019 11:51 EDT [facility] Comment: Vitamin D 25,OH Interpretive Ranges: Deficiency: ??<10.0 ng/mL Insufficiency: ??10.0 - 30.0 ng/mL Sufficiency: ??30.0 - 100.0 ng/mL Toxicity: ??>100.0 ng/mL Blood VENOUS BLOOD / Unknown Venipuncture / Unknown 10/04/2019 13:02 EDT 10/04/2019 13:49 EDT us Js Meza MD CHEMISTRY & BLOOD GAS ORDERABLES Final Result Performing Organization Address [facility] [place]/[facility] Co de Phone Number [facility] [address] [place] [address] * CALCIUM (10/04/2019 13:02 EDT) [facility] Calcium 8.7 8.5 - 10.5 mg/dL 10/04/2019 14:17 EDT [facility] Calculated Calcium 9.5 8.5 - 10.5 mg/dL 10/04/2019 14:17 EDT [facility] Blood VENOUS BLOOD / Unknown Venipuncture / Unknown 10/04/2019 13:02 EDT 10/04/2019 13:49 EDT us Js Meza MD CHEMISTRY & BLOOD GAS ORDERABLES Final Result Performing Organization Address City/[facility]/ZIP Co de Phone Number [facility] [address] [place] [address] * ALKALINE PHOSPHATASE (10/04/2019 13:02 EDT) [facility] Alkaline Phosphatase 115 38 - 126 U/L 10/04/2019 14:17 EDT [facility] Blood VENOUS BLOOD / Unknown Venipuncture / Unknown 10/04/2019 13:02 EDT 10/04/2019 13:49 EDT us Js Meza MD CHEMISTRY & BLOOD GAS ORDERABLES Final Result [facility] [address] [place] [address] * (ABNORMAL) PREALBUMIN (10/04/2019 13:02 EDT) Prealbumin 6(L) 20 - 40 mg/dL 10/06/2019 9:34 EDT [facility] Blood VENOUS BLOOD / Unknown Venipuncture / Unknown 10/04/2019 13:02 EDT 10/04/2019 13:49 EDT us Js Meza MD CHEMISTRY & BLOOD GAS ORDERABLES Final Result Performing Organization Address City/[facility]/ZIP Co de Phone Number [facility] [address] [place] [address] * PHOSPHORUS (10/04/2019 13:02 EDT) Phosphorus 3.8 2.5 - 4.5 mg/dL 10/04/2019 14:17 EDT [facility] Blood VENOUS BLOOD / Unknown Venipuncture / Unknown 10/04/2019 13:02 EDT 10/04/2019 13:49 EDT us Js Meza MD CHEMISTRY & BLOOD GAS ORDERABLES Final Result Performing Organization Address City/[facility]/ZIP Co de Phone Number [facility] [address] [place] [address] * MAGNESIUM (10/04/2019 13:02 EDT) Magnesium 2.0 1.7 - 2.8 mg/dL 10/04/2019 14:17 EDT [facility] Blood VENOUS BLOOD / Unknown Venipuncture / Unknown 10/04/2019 13:02 EDT 10/04/2019 13:49 EDT us Js Meza MD CHEMISTRY & BLOOD GAS ORDERABLES Final Result Performing Organization Address City/[facility]/ZIP Co de Phone Number [facility] [address] [place] [address] * (ABNORMAL) ALBUMIN (10/04/2019 13:02 EDT) Albumin 3.0(L) 3.4 - 4.9 g/dL 10/04/2019 14:17 EDT [facility] Blood VENOUS BLOOD / Unknown Venipuncture / Unknown 10/04/2019 13:02 EDT 10/04/2019 13:49 EDT us Js Meza MD CHEMISTRY & BLOOD GAS ORDERABLES Final Result Performing Organization Address [facility] [[email or web address]] de Phone Number [facility] [address] [place] [address] * (ABNORMAL) HEMOGLOBIN A1C (10/04/2019 13:02 EDT) Hemoglobin A1c 15.9(H) <5.7 % 10/06/2019 9:09 EDT [facility] Comment: Glycemic Status References: Normal: [...] Avg Glucose 410 mg/dL 0 9:09 EDT [facility] Comment:The eAG represents t he A1c result expressed as average glucose in mg/dL. Blood VENOUS BLOOD / Unknown Venipuncture / Unknown 10/04/2019 13:02 EDT 10/04/2019 13:49 EDT us Js Meza MD CHEMISTRY & BLOOD GAS ORDERABLES Final Result Performing Organization Address [facility] [facility] [place] [[email or web address]] de Phone Number [facility] [address] [place] [address] * TYPE AND SCREEN (10/04/2019 13:01 EDT) ABO A 10/04/2019 14:16 EDT [facility] Rh Factor Positive 10/04/2019 14:16 EDT [facility] Antibody Screen Negative 10/04/2019 14:16 EDT [facility] Specimen Expires: 10/07/2019 @ 23:59 10/04/2019 14:16 EDT [facility] Blood VENOUS BLOOD / Unknown Venipuncture / Unknown 10/04/2019 13:01 EDT 10/04/2019 13:33 EDT us Js Meza MD BLOOD BANK TESTS Edited Result - Final Performing Organization Address [facility] [place] Co de Phone Number [facility] [address] [place] [address] * EKG 12-LEAD (10/04/2019 11:58 EDT) 10/04/2019 11:5 8 EDT Narrative [facility] - 10/08/2019 8:40 EDT ?[facility] Emergency ? Test Date: ?2019-10-04 Pat Name: ? JEFF NARVAEZ ?Department: ?? ED ? Room: ? GT31 Gender: ? Male ? 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 [id number] : ?1960 ? Requested By: JAMI RUANO Order Number: [id number] ? Rekha MD: ?? BAKARI MORALES MD ? Measurements Intervals ?[place] ? Rate: ? 93 ? P: ?26 AL: ? 125 ?QRS: ?6 QRSD: ? 106 ?T: ?17 QT: ? 390 ? QTc: ?487 ? Interpretive Statements SINUS RHYTHM No previous ECG available for comparison I reviewed the tracing and have either agreed or edited the findings in this report. Electronically Signed On 10-08-2019 8:40:03 EDT by BAKARI MORALES MD. 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 Electronically Signed On 10-08-2019 8:40:03 EDT by BAKARI HALL. Js Meza MD CARDIAC ECG ORDERABLES Final Res ult [facility] * XR CHEST 2 VIEWS (10/04/2019 [...] Normal chest x-ray. us Js Meza MD [facility] DIAGNOSTIC IMAGING ORDERABLE S Final Result * MR FOOT W WO CONTRAST RIGHT (10/04/2019 11:14 EDT) [...] andagree with the findings. Js Meza MD [facility] [place] ORDERABLES Final Result * (ABNORMAL) POCT GLUCOSE, INTERFACED (10/04/2019 9:40 EDT) Glucose, POC 269(H) 70 - 100 mg/dL 10/04/2019 9:41 EDT [facility] button [place] ID [id number] 10/04/2019 9:41 EDT [facility] HN LAB POC COMMENT (GLUCOSE) Test Performed by Nursing Services 10/04/2019 9:41 EDT [facility] Blood CAPILLARY BLOOD / Unknown 10/04/2019 9:40 EDT 10/04/2019 9:41 EDT us Makeda Padron MD POINT OF CARE TEST ORDERAB LES Final Result [facility] [address] [place] [address] * XR TIBIA FIBULA RIGHT 2 VIEWS [...] andagree with the findings. Js Meza MD IMG DIAGNOSTIC IMAGING ORDERABLE S Final Result * (ABNORMAL) ANAEROBE CULTURE/SMEAR(INC. AEROBES), OTHER (10/04/2019 2:22 EDT) Organism ID Heavy mixed aerobic and anaerobic growth, including Bacteroides fragilis group(A) 10/09/2019 11:58 EDT [facility] Smear Many Neutrophils Present(A) 10/09/2019 11:58 EDT [facility] Smear Many Mixed gram positive and gram negative organisms(A) 10/09/2019 11:58 EDT [facility] Tissue ENTIRE FOOT / Unknown Collection, Other / Unknown 10/04/2019 2:22 EDT 10/04/2019 7:29 EDT Makeda Padron MD MICROBIOLOGY - GENERAL ORD ERABLES Final Result Performing Organization Address [facility] [place] Co de Phone Number [facility] [address] [place] [address] * COVID-19 TEST [facility] PCR (10/03/2019 22:56 EDT) Swab ENTIRE NASOPHARYNX / Unknown Swab / Unknown 10/03/2019 22:56 EDT 10/03/2019 23:15 EDT Makeda Padron MD MICROBIOLOGY - GENERAL ORD ERABLES Final Result [facility] [address] [place] [address] * COVID-19 TESTING (10/03/2019 22:56 EDT) COVID-19 rt-PCR Result Negative Negative 10/04/2019 2:19 EDT [facility] Comment: This test has not [...] history, and epidemiological information. Performed on the [employer] instrument Performing Lab [place] [facility] Lab 10/04/2019 2:19 EDT [facility] Swab ENTIRE NASOPHARYNX / Unknown Swab / Unknown 10/03/2019 22:56 EDT 10/03/2019 23:15 EDT us Makeda Padron MD MICROBIOLOGY - GENERAL ORD ERABLES Final Result [facility] [address] [place] [address] * XR FOOT RIGHT 3 OR MORE [...] is interval amputation of the mid and [id number] toe. These findings were discussed with MAKEDA PADRON by Dr. Ribeiro at 10/03/2019 11:15 PM. I have personally reviewed the images and the above interpretation andagree with the findings. us Makeda Padron MD IMG DIAGNOSTIC IMAGING ORD ERABLES Final Result * BACTERIAL CULTURE, BLOOD (10/03/2019 22:40 EDT) Organism ID No Growth at 5 days 10/08/2019 23:00 EDT [facility] Blood VENOUS BLOOD / Unknown Blood Culture / Unknown 10/03/2019 22:40 EDT 10/03/2019 22:53 EDT us Makeda Padron MD MICROBIOLOGY - GENERAL ORD ERABLES Final Result [facility] [address] [place] [address] * (ABNORMAL) POCT URINE DIPSTICK, CLINITEK (10/03/2019 22:38 EDT) Color, UA Yellow Yellow 10/03/2019 22:45 EDT [facility] Clarity, UA Clear Clear 10/03/2019 22:45 EDT [facility] Glucose, UA 2+(A) Negative mg/dL 10/03/2019 22:45 T [facility] Bilirubin, UA 1+(A) Negative 10/03/2019 22:45 T [facility] Ketones, UA 1+(A) Negative mg/dL 10/03/2019 22:45 T [facility] Specific Wright, Urine 1.015 1.001 - 1.035 10/03/2019 22:45 T [facility] Blood, UA Negative Negative 10/03/2019 22:45 [facility] pH, UA 6.0 <=8 10/03/2019 22:45 [facility] Protein, UA 1+(A) Negative mg/dL 10/03/2019 22:45 [facility] Urobilinogen, UA 0.2 0.2 - 1.0 EU/dL 10/03/2019 22:45 [facility] Nitrite, UA Negative Negative 10/03/2019 22:45 [facility] Leuk Esterase Negative Negative 10/03/2019 22:45 [facility] button spindler ID [id number] 10/03/2019 22:45 [facility] HN LAB COMMENT (CLINITEK, UR) Test performed at Emergency Department 10/03/2019 22:45 EDT [facility] Urine URINE SPECIMEN OBTAINED BY CLEAN CATCH PROCEDURE / Unknown 10/03/2019 22:38 EDT 10/03/2019 22:45 EDT us Makeda Padron MD POINT OF CARE TEST ORDERAB LES Final Result [facility] [address] [place] [address] * POCT CSN BARCODE URINE DIPSTICK (10/03/2019 22:26 EDT) Hold Hold 10/03/2019 23:31 T [facility] Urine URINE SPECIMEN OBTAINED BY CLEAN CATCH PROCEDURE / Unknown Urine Collect / Unknown 10/03/2019 22:26 EDT 10/03/2019 22:26 EDT Makeda Padron MD LAB INFO SERVICE AND SUPPO RT & PHONE RESULT Final Result [facility] [address] [place] [address] * (ABNORMAL) PROTIME (10/03/2019 22:25 EDT) I.N.R. 1.3(H) 0.9 - 1.1 Ratio 10/04/2019 12:18 EDT [facility] Pro Time 14.6(H) 10.3 - 13.4 secs 10/04/2019 12:18 EDT [facility] Blood VENOUS BLOOD / Unknown Venipuncture / Unknown 10/03/2019 22:25 EDT 10/03/2019 22:36 EDT Narrative [facility] - 10/04/2019 12:18 EDT Moderate Intensity Coumadin INR = 2.0-3.0 Adjustments in anticoagulant therapy dose should be based on the INR and NOT on the Protime. us Js Meza MD HEMATOLOGY & PF4 ORDERABLES Sobia l Result [facility] [address] [place] [address] * MAGNESIUM (10/03/2019 22:25 EDT) Magnesium 2.1 1.7 - 2.8 mg/dL 10/04/2019 10:23 EDT [facility] Blood VENOUS BLOOD / Unknown Venipuncture / Unknown 10/03/2019 22:25 EDT 10/03/2019 22:47 EDT us Js Meza MD CHEMISTRY & BLOOD GAS ORDERABLES Final Result [facility] [address] [place] [address] * (ABNORMAL) HEMOGLOBIN A1C (10/03/2019 22:25 EDT) Hemoglobin A1c 15.8(H) <5.7 % 10/06/2019 8:39 EDT [facility] Comment: Glycemic Status References: Normal: [...] Avg Glucose 407 mg/dL 0 8:39 EDT [facility] Comment:The eAG represents t he A1c result expressed as average glucose in mg/dL. Blood VENOUS BLOOD / Unknown Venipuncture / Unknown 10/03/2019 22:25 EDT 10/03/2019 22:36 EDT us Yadira Cordova MD CHEMISTRY & BLOOD GAS ORDERAB LES Final Result Performing Organization Address City/[facility]/ZIP Co de Phone Number [facility] [address] [place] [address] * (ABNORMAL) SED. RATE:TEAGAN (10/03/2019 22:25 EDT) Sed Rate >100(H) 0 - 20 mm/hr 10/04/2019 0:13 EDT [facility] Blood VENOUS BLOOD / Unknown Venipuncture / Unknown 10/03/2019 22:25 EDT 10/03/2019 22:36 EDT Js Meza MD HEMATOLOGY & PF4 ORDERABLES Sobia l Result [facility] [address] [place] [address] * (ABNORMAL) C REACTIVE PROTEIN (10/03/2019 22:25 EDT) C-Reactive Protein 263.5(H) <10.0 mg/L 10/04/2019 1:17 EDT [facility] Blood VENOUS BLOOD / Unknown Venipuncture / Unknown 10/03/2019 22:25 EDT 10/03/2019 22:47 EDT us Js Meza MD CHEMISTRY & BLOOD GAS ORDERABLES Final Result [facility] [address] [place] [address] * HOLD BLUE TOP (10/03/2019 22:25 EDT) Hold Hold 10/03/2019 23:46 EDT [facility] Blood VENOUS BLOOD / Unknown Venipuncture / Unknown 10/03/2019 22:25 EDT 10/03/2019 22:36 EDT us Makeda Padron MD LAB INFO SERVICE AND SUPPO RT & PHONE RESULT Final Result Performing Organization Address [facility] [place]/ZIP Co de Phone Number [facility] [address] [place] [address] * BLOOD BANK HOLD (10/03/2019 22:25 EDT) Hold BB Spec will exp at 23:59, 3 days from collect date 10/03/2019 22:49 EDT [facility] Blood VENOUS BLOOD / Unknown Venipuncture / Unknown 10/03/2019 22:25 EDT 10/03/2019 22:37 EDT us Makeda Padron MD BLOOD BANK TESTS Final Res ult [facility] [address] [place] [address] * LACTIC ACID (10/03/2019 22:25 EDT) Pathologist [facility] Lactic Acid 1.2 <=2.0 mmol/L 10/03/2019 23:00 [facility] Blood VENOUS BLOOD / Unknown Venipuncture / Unknown 10/03/2019 22:25 EDT 10/03/2019 22:47 EDT Makeda Padron MD CHEMISTRY & BLOOD GAS ORDKay ROMERO Final Result [facility] [address] [place] [address] * (ABNORMAL) COMPLETE BLOOD COUNT AND DIFFERENTIAL (10/03/2019 22:25 EDT) [facility] WBC 15.23(H) 4.00 - 10.40 K/cmm 10/03/2019 23:38 [facility] RBC 4.18(L) 4.36 - 5.78 M/cmm 10/03/2019 23:38 [facility] Hemoglobin 12.6(L) 13.8 - 17.3 gm/dL 10/03/2019 23:38 [facility] HCT 36.5(L) 39.5 - 50.2 % 10/03/2019 23:38 [facility] MCV 87 81 - 95 fl 10/03/2019 23:38 [facility] MCH 30.1 27.6 - 33.0 pg 10/03/2019 23:38 [facility] MCHC 34.5 32.8 - 36.4 gm/dL 10/03/2019 23:38 [facility] RDW-CV 12.0 <14.2 % 10/03/2019 23:38 [facility] RDW-SD 38.6 <46.0 fl 10/03/2019 23:38 [facility] PLT 274 141 - 377 K/cmm 10/03/2019 23:38 [facility] MPV 10.5 9.5 - 12.7 fl 10/03/2019 23:38 [facility] % Neutrophils 82.7 % 10/03/2019 23:38 [facility] % Lymphocytes 9.4 % 10/03/2019 23:38 [facility] % Monocytes 6.2 % 10/03/2019 23:38 [facility] % Eosinophils 0.3 % 10/03/2019 23:38 [facility] % Basophils 0.2 % 10/03/2019 23:38 [facility] % Immature Grans 1.2 % 10/03/19 20 23:38 [facility] Absolute Neutrophils 12.61(H) 2.20 - 8.85 K/cmm 10/03/2019 23:38 [facility] Absolute Lymphocytes 1.43 1.09 - 3.30 K/cmm 10/03/2019 23:38 [facility] Absolute Monocytes 0.94(H) 0.10 - 0.80 K/cmm 10/03/2019 23:38 [facility] Absolute Eosinophils 0.04 0.03 - 0.61 K/cmm 10/03/2019 23:38 [facility] ABS Basophils 0.03 0.01 - 0.11 K/cmm 10/03/2019 23:38 [facility] Absolute Immature Grans 0.18(H) 0.00 - 0.06 K/cmm 10/03/2019 23:38 [facility] Type of Differential: Auto 10/03/2019 23:38 [facility] Blood VENOUS BLOOD / Unknown Venipuncture / Unknown 10/03/2019 22:25 EDT 10/03/2019 22:36 EDT us Makeda Padron MD PACKAGES & DNA PROBE ORDER ELIU Final Result [facility] [address] [place] [address] * (ABNORMAL) GLUCOSE, SERUM (10/03/2019 22:25 EDT) Glucose 357(H) 70 - 100 mg/dL 10/03/2019 23:00 EDT [facility] Blood VENOUS BLOOD / Unknown Venipuncture / Unknown 10/03/2019 22:25 EDT 10/03/2019 22:47 EDT us Makeda Padron MD CHEMISTRY & BLOOD GAS ORDE RABALEJANDRA Final Result [facility] [address] [place] [address] * (ABNORMAL) ELECTROLYTES (10/03/2019 22:25 EDT) Sodium 130(L) 136 - 145 mEq/L 10/03/2019 23:00 EDT [facility] Potassium 3.4(L) 3.5 - 5.0 mEq/L 10/03/2019 23:00 EDT [facility] Chloride 87(L) 96 - 110 mEq/L 10/03/2019 23:00 EDT [facility] CO2 Total 29 22 - 32 mEq/L 10/03/2019 23:00 EDT [facility] Blood VENOUS BLOOD / Unknown Venipuncture / Unknown 10/03/2019 22:25 EDT 10/03/2019 22:47 EDT us Makeda Padron MD CHEMISTRY & BLOOD GAS JANIEE RABALEJANDRA Final Result [facility] [address] [place] [address] * CREATININE (10/03/2019 22:25 EDT) Creatinine 0.73 0.66 - 1.25 mg/dL 10/03/2019 23:00 EDT [facility] eGFR 103 >60 mL/min/1.7 3m2 10/03/2019 23:00 EDT [facility] Comment:eGFR calculated sarahi krishnan CKD-EPI equation for non- Americans. Multiply eGFR by 1.16 for patients. Blood VENOUS BLOOD / Unknown Venipuncture / Unknown 10/03/2019 22:25 EDT 10/03/2019 22:47 EDT us Makeda Padron MD CHEMISTRY & BLOOD GAS ORDE RABALEJANDRA Final Result [facility] [address] [place] [address] * BUN (10/03/2019 22:25 EDT) BUN 22 10 - 26 mg/dL 10/03/2019 23:00 EDT [facility] Blood VENOUS BLOOD / Unknown Venipuncture / Unknown 10/03/2019 22:25 EDT 10/03/2019 22:47 EDT us Makeda Padron MD CHEMISTRY & BLOOD GAS ORDE RABALEJANDRA Final Result Performing Organization Address City/[facility]/ZIP Co de Phone Number [facility] [address] [place] [address] * BACTERIAL CULTURE, BLOOD (10/03/2019 22:24 EDT) Organism ID No Growth at 5 days 10/08/2019 23:00 EDT [facility] Blood VENOUS BLOOD / Unknown Blood Culture / Unknown 10/03/2019 22:24 EDT 10/03/2019 22:54 EDT Makeda Padron MD MICROBIOLOGY - GENERAL ORD ERABLES Final Result Performing Organization Address City/[facility]/ZIP Co de Phone Number [facility] [address] [place] [address] * (ABNORMAL) POCT GLUCOSE, INTERFACED (10/03/2019 22:05 EDT) Glucose, POC 376(H) 70 - 100 mg/dL 10/03/2019 22:06 EDT [facility] [place] ID [id number] 10/03/2019 22:06 EDT [facility] HN LAB POC COMMENT (GLUCOSE) Test Performed by Nursing Services 10/03/2019 22:06 EDT [facility] Blood CAPILLARY BLOOD / Unknown 10/03/2019 22:05 EDT 10/03/2019 22:06 EDT us Provider Unknown MD POINT OF CARE TEST ORDERABLE S Final Result [facility] [address] [place] [address] documented in this encounter Visit Diagnoses Diagnosis Acute osteomyelitis of right ankle or foot ([facility])- Primary Acute osteomyelitis, ankle and foot Osteomyelitis, unspecified site, unspecified type ([facility]) Hyperglycemia Other abnormal glucose Other acute osteomyelitis of right foot ([facility]) Diabetic foot infection ([facility]) Type II or unspecified type diabetes mellitus with other specified manifestations, not stated as uncontrolled Type 2 diabetes mellitus with hyperglycemia, with long-term current use of insulin ([facility]) Uncontrolled type 2 diabetes mellitus with hyperglycemia ([facility]) Type 2 diabetes mellitus with diabetic polyneuropathy, with long-term current use of insulin ([facility]) Other acute osteomyelitis of foot, unspecified laterality ([facility]) Type 2 diabetes mellitus with hyperglycemia, without long-term current use of insulin ([facility]) Diabetic foot infection ([facility]) Type II or unspecified type diabetes mellitus with other specified manifestations, not stated as uncontrolled Osteomyelitis, unspecified site, unspecified type ([facility]) Osteomyelitis ([facility]) Unspecified osteomyelitis, site unspecified documented in this encounter Admitting Diagnoses Diagnosis Diabetic foot infection ([facility]) Type II or unspecified type diabetes mellitus with other specified manifestations, not stated as uncontrolled Acute osteomyelitis of right ankle or foot ([facility]) Acute osteomyelitis, ankle and foot [...] on 10/12/19 at 2100, Until Discontinued, Routine Given 10/14/2019 [...] intravenous catheter placement, Routine methocarbamoL (ROBAXIN) tablet 750 mg 750 mg, [...] mL/hr Restarted 10/09/2019 5:10 EDT 100 mL/hr sodium chloride 0.9 % irrigation As needed, Starting on 10/05/19 at 1244, Until Sun10/05/19 at 1410, Routine, Intraprocedure Given 10/05/2019 12:44 EDT 10,000 mL Other traMADoL (ULTRAM) tablet 50 mg 50 mg, [...] hyperglycemia, without long-term current use of insulin ([facility]) Inject 70 Units into the skin at [...] Nino Forbes RN)0532 (Given - Provider: Nino Forbes RN)1126 (Given - Provider: Rina Rosado RN)1726 (Given - Provider: Rina Rosado RN)2325 (Given - Provider: Nino Forbes RN) 0557 (Given - Provider: Nino Forbes RN) cholecalciferol (Vitamin D3) tablet 2,000 Units 2,000 Units, oral, AT BEDTIME, First dose on Sun10/05/19 at 2100, Until Discontinued, Routine 2152 (Given - Provider: Daljit Ventura RN) 5 (Given - Provider: Nino Forbes RN) ertapenem [...] on 10/12/19 at 2100, Until Discontinued, Routine 215 (Given - Provider: Daljit Ventura RN) 2057 (Given - Provider: Nino Forbes RN) levothyroxine (SYNTHROID) tablet 112 mcg 112 mcg, oral, DAILY, First dose on Sun10/04/19 at 1300, Until Discontinued, Routine 0614 (Given - Provider: Bravo Figueroa RN) 0631 (Given - Provider: Nino Forbes, JARVIS) 0658 (Given - Provider: Nino Forbes, JARVIS) methocarbamoL (ROBAXIN) tablet 750 mg 750 mg, oral, 4 TIMES DAILY, First dose on 10/05/19 at 1700, Until Discontinued, Routine 0721 (Given - Provider: Bravo Figueroa RN)1203 (Given - Provider: Rina Rosado RN)1752 (Given - Provider: An Sawyer RN)215 (Given - Provider: Daljit Jame, RN) 0751 (Given - Provider: Rina Rosado RN)1131 (Given - Provider: Rina Rosado RN)1726 (Given - Provider: Rina Rosado RN)2054 (Given - Provider: Nino Forbes RN) 0930 [...] 2054 (Given - Provider: Nino Forbes, JARVIS) Continuous Medication Order 10/13/2019 10/14/2019 10/15/2019 lactated [...] Fever, Routine 1619 (Given - Provider: Daljit Ventura, RN) 0029 (Given - Provider: Nino Forbes, JARVIS)1126 (Given - Provider: Rina Rosado RN)2055 (Given - Provider: Nino Forbes, JARVIS) 0557 (Given - Provider: Nino Forbes, JARVIS)1324 (Given - Provider: Rina Rosado RN) alteplase [...] Sawyer RN) 0046 (Given - Provider: Nino Forbes, JARVIS)0906 (Given - Provider: Rina Rosado, JARVIS)1726 (Given - Provider: Rina Rosado RN) sodium [...] Pain, Routine 0618 (Given - Provider: Bravo Figueroa, RN)1203 (Given - Provider: Rina Rosado, RN)2152 (Given - Provider: Daljit Ventura, JARVIS) 0751 (Given - Provider: Rina Rosado, JARVIS) 0557 (Given - Provider: Nino Forbes, JARVIS)1324 (Given - Provider: Rina Rosado, JARVIS) No [...] lactated ringers (LR) infusion 3 10/09/2019 10/05/2019 lidocaine 1 % 30 mL, [...] mg 2 10/05/2019 10/04/2019 polyethylene glycol 3350 (NC RALAX) packet 17 g 2 10/05/2019 10/04/2019 senna (SENOKOT) tablet 2 Tab 2 10/05/2019 10/04/2019 traMADoL (ULTRAM) tablet 50 mg 1 10/05/2019 [...] 10/04/2019 documented in this encounter Care Teams Director Employment Relationship Specialty Start Date End Date Karishma Batres MD [address] [place] [address] PCP - General 07/27/11 12/31/23 documented as of this encounter
--- OUTSIDE RECORDS SUMMARY | 2024-02-28 16:52 | XMS_ITS | Encounter Summary ---
Author Organization [facility] Address [address] [place] [address] Care Team Providers Care Maintenance Worker Swimming Pool Name Role Phone Jason Batres MD Primary Care Provi margarita Reason for Visit * Reason Comments Other Encounter Details Date Type Department Care Team (Late st Contact Info) Description 05/28/2018 [facility] Endocrinology - [facility] [address] [place] [address] Yesi Marie NP [address] [facility] [address] [place] [address] Other Social History Tobacco Use Types Packs/Day [...] ONE TIME DAILY 90 tablet 1 05/28/2018 01/10/2019 documented in this encounter Plan of Treatment Not on file documented as of this encounter Visit Diagnoses Not on filedocumented in this encounter Discontinued Medications Medication Sig Discontinue Reason Start Date End Da te levothyroxine (SYNTHROID) 112 mcg tablet TAKE ONE TABLET BY MOUTH ONE TIME DAILY Reorder 10/02/2017 05/28/2018 documented as of this encounter Care Teams Maintenance Worker Swimming Pool Relationship Specialty Start Date End Date Jason Batres MD [address] [place] [id number] PCP - General 07/27/11 12/31/23 documented as of this encounter
--- OUTSIDE RECORDS SUMMARY | 2024-02-28 16:52 | XMS_ITS | Encounter Summary ---
Author Organization [facility] Address [address] [place] [address] Care Team Providers Care Security Systems Technician Name Role Phone Jason Batres MD Primary Care Provi margarita Reason for Visit * Reason Comments Foot Problem Encounter Details Date Type Department Care Team (Late st Contact Info) Description 03/22/2018 10:30 EST Office Visit [facility] Foot & Ankle Program - [address] [address] Angelina Gonzales [facility] [address] [place] [address] Ulcer of foot, right, with fat layer exposed ([facility]) (Primary Dx); Type 2 diabetes mellitus with diabetic polyneuropathy, with long-term current use of insulin ([facility]); Status post amputation of toe of right foot ([facility]) Discharge Disposition: Auto Discharge Social History Tobacco [...] 15:47 EDT documented in this encounter Discharge Disposition Disposition Code Departure Means Destination Auto Discharge documented in this encounter Progress Notes * Angelina Gonzales, BRENDA - 03/22/2018 1030 EST Jeff Scott is a very pleasant 57 y.o. male patient who presents for follow up chronic right footulcer submetatarsal head 2. He reports that this has been a little more sore than usual. He also has been having to pack the wound with more gas than he was before. He has not noticed any redness or swelling. He has not noticed any purulent drainage. Overall he is feeling well today. Mr. Scott follows with his primary care doctor for the diabetes. His last hemoglobin A1c on record was on 03/14/2018 and was 12.2. Patient Active Problem List Diagnosis Date Noted ??? Acute osteomyelitis of phalanx of foot ([facility]) 03/23/2016 Priority: Medium ??? Hypothyroidism 01/22/2013 Priority: Medium ??? Osteoarthritis of left hip 07/06/2014 ??? 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 Arthritis ??? Back pain ??? Diabetes mellitus ([facility]) ??? Hypothyroidism ??? Wears glasses Past [...] (FREESTYLE TEST) test strips 1 Strip by [facility] (non-drug; combo route) route [...] forefoot submetatarsal head 2. ??Measures 10 x 8 x 3??mm. ??Surrounding hyperkeratotic tissue- mild. Granular wound base. ??No probe to bone. ??No surrounding erythema or edema. ??No pain on palpation or probing. ??No malodor. ??No necrosis. No??drainage. ??MMT??5 out of 5. ??Gross protective sensation diminished. ?? ASSESSMENT: 1. Ulcer of foot, right, with fat layer exposed (HCC-CMS) 2. Type 2 diabetes mellitus with diabetic polyneuropathy, with long-term current use of insulin (HCC-CMS) 3. Status post amputation of toe of right foot (HCC-CMS) No orders of the defined types were placed in this encounter. PLAN: Mr. Scott presents today for follow-up chronic right foot ulcer submetatarsal 2. No signs of infection. I debrided the ulcer, skin and subcutaneous tissue, less than 20 cm??, with a 15 blade. This has nearly doubled in size since last visit. We reviewed that he has been on his feet too much at work. He has not been wearing the diabetic offloading boot as much. We discussed the importance of staying off of the foot. He is aware of the effects of his of blood high blood sugars on wound healing. Iwrote him a note for work to include encouraged him to limit his activity at work. He is going to continue with the daily dressing changes. I am going to see him back in 2-3 weeks. He knows to call before then if any problems arise and is happy with this plan. Portions of this document have been prepared with speech recognition software or keyboard data transcriber techniques. Minor irregularities or keyboarding misprints may be present documented in this encounter Plan of Treatment Not on file documented as of this encounter Visit Diagnoses Diagnosis Ulcer of foot, right, with fat layer exposed (H[facility]-CMS)- Primary Type 2 diabetes mellitus with diabetic polyneuropathy, with long-term current use of insulin (HCC-CMS) Status post amputation of toe of right foot ([facility]) Lower limb amputation, other toe(s) documented in this encounter Care Teams Security Systems Technician Relationship Specialty Start Date End Date Jason Batres MD [address] [place] [address] PCP - General 07/27/11 12/31/23 documented as of this encounter
--- OUTSIDE RECORDS SUMMARY | 2024-02-28 16:52 | XMS_ITS | Encounter Summary ---
Author Organization [facility] Address [address] [place] [address] Care Team Providers Care Motion Picture Critic Name Role Phone Jason Batres MD Primary Care Provi margarita Alexus De La O RN [facility], Primary Care Provi margarita Reason for Visit * Reason Comments Other Encounter Details Date Type Department Care Team (Late st Contact Info) Description 05/28/2018 Refill Jason Batres MD, PC [address] [place] [address] Jason Batres MD [address] [place] [id number] Other Social History Tobacco Use Types [...] Filled Start Date End Date metFORMIN (GLUCOPHAGE) 1,000 mg tablet TAKE ONE TABLET BY MOUTH TWICE DAILY with breakfast and dinner 180 tablet 2 05/28/2018 9 glimepiride (AMARYL) 4 mg tablet TAKE ONE TABLET BY MOUTH TWICE DAILY 180 tablet 2 05/28/2018 0 documented in this encounter Plan of Treatment Not on file documented as of this encounter Visit Diagnoses Not on filedocumented in this encounter Discontinued Medications Medication Sig Discontinue Reason Start Date End Da te glimepiride (AMARYL) 4 mg tablet Take 1 Tab by mouth 2 times daily. Reorder 05/09/2017 05/28/2018 metFORMIN (GLUCOPHAGE) 1,000 mg tablet Take 1 Tab by mouth 2 times daily with breakfast and dinner. Reorder 05/09/2017 05/28/2018 documented as of this encounter Additional Health Concerns Infection Onset Date Last Indicated Resolved Time R/O COVID-19 Comment:Negative swab 12/22/2020 12/22/2020 12/22/2020 021 7:17 EDT R/O COVID-19 Comment:Negative 02/17/2022 02/17/2022 02/18/2022 7:30 EST Rule-Out C. difficile 02/25/2022 02/25/20222021 12:00 EST R/O COVID-19 04/09/2022 04/09/2022 04/09/2022 16:3 2 EST documented as of this encounter Care Teams Motion Picture Critic Relationship Specialty Start Date End Date Jason Batres MD [address] [place] [address] PCP - General 07/27/11 12/31/23 [facility], [facility] [address] [place] [address] PCP - General 01/01/24 Alexus De La O, utility porter 04/18/22 08/13/23 documented as of this encounter
--- OUTSIDE RECORDS SUMMARY | 2024-02-28 16:52 | XMS_ITS | Encounter Summary ---
Author Organization [facility] Address [address] [place] [address] Care Team Providers Care Insurance Representative Name Role Phone Jason Batres MD Primary Care Provi margarita Reason for Visit * Reason Comments Foot Problem Encounter Details Date Type Department Care Team (Late st Contact Info) Description 02/07/2018 10:[address] [facility] Foot & Ankle Program - [address] [address] Angelina Gonzales [facility] [address] [place] [address] Ulcer of foot, right, with fat layer exposed ([facility]) (Primary Dx); Type 2 diabetes mellitus [...] documented in this encounter Progress Notes * ChristianAngelina Carol, DPM - 02/07/2018 1015 EST Jeff Scott is a very pleasant 57 y.o. male patient who presents for follow up right foot chroniculcer. He reports that he has been doing well. He has not been wearing his boot as much as he should. He has been wearing his sneaker more, due to the snow outside. He has been limiting his activity and is taking it easier at work. He has been changing the dressing regularly. He denies any pain in the foot. Overall he is feeling well denies any nausea, vomiting, fever, chills. Patient Active Problem List Diagnosis Date Noted ??? Acute osteomyelitis of phalanx of foot ([facility]) 03/23/2016 Priority: Medium ??? Hypothyroidism 01/22/2013 Priority: Medium ??? Osteoarthritis of left hip 07/06/2014 ??? 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 Arthritis ??? Back pain ??? Diabetes mellitus ([facility]) ??? Hypothyroidism ??? Wears glasses [...] forefoot submetatarsal head 2. ??Measures 5 x 3??mm. ??Surrounding hyperkeratotic tissue- mild. Granular wound base. ??No probe to bone. ??No surrounding erythema oredema. ??No pain on palpation or probing. ??No malodor. ??No necrosis. No??drainage. ??MMT??5 out of 5. ??Gross protective sensation diminished. ASSESSMENT: 1. Ulcer of foot, right, with fat layer exposed ([facility]) 2. Type 2 diabetes mellitus with diabetic polyneuropathy, with long-term current use of insulin (HCC-CMS) No orders of the defined types were placed in this encounter. PLAN: Mr. Scott presents today for follow-up right foot ulcer, chronic, submetatarsal head 2. This is improving in size and appearance since he has been limiting his activity at work. No signs of infectiontoday. I did debride the wound, skin and subcutaneous tissue, less than 20 cm??. He is going to continue with the daily dressing changes. He is going to continue to limit his activity. I encouraged hi m to wear his boot more. I am going to see him back in approximately 3 weeks. He knows to call before then if any problems arise and is happy with this plan. Portions of this document have been prepared with speech recognition software or keyboard principal database developer techniques. Minor irregularities or keyboarding misprints may be present documented in this encounter Plan of Treatment Not on file documented as of this encounter Visit Diagnoses Diagnosis Ulcer of foot, right, with fat layer exposed (HCC-CMS)- Primary Type 2 diabetes mellitus with diabetic polyneuropathy, with long-term current use of insulin ([facility]) documented in this encounter Care Teams Insurance Representative Relationship Specialty Start Date End Date Jason Batres MD [address] [place] [address] PCP - General 07/27/11 12/31/23 documented as of this encounter
--- OUTSIDE RECORDS SUMMARY | 2024-02-28 16:52 | XMS_ITS | Encounter Summary ---
Author Organization [facility] Address [address] [place] [address] Care Team Providers Care Alterations Tailor Name Role Phone Jason Batres MD Primary Care Provi margarita Encounter Details Date Type Department Care Team (Latest Contact Info) Description 01/17/2018 9:00 EST Procedure visit [facility] Endocrinology - [facility] [address] [place] [address] Yesi Marie NP [address] [facility] [address] [place] [address] Phlebotomy, [facility] Type 2 diabetes mellitus with hyperglycemia, without long-term current use of insulin ([facility]) (Primary Dx) Discharge Disposition: Auto Discharge [...] E11.65 Type 2 diabetes mellitus with hyperglycemia-E11.65[ICD-10-CM] documented in this encounter Discharge Disposition Disposition Code Departure Means Destination Auto Discharge documented in this encounter Progress Notes * Vibha Carlos - 01/17/2018 0900 EST Venipuncture preformed for Albumin urine (Not charged for at time of collection at [facility]), LIVR, BMP, Lipids prof, Per orders of Carol Marie Diagnosis of E11.65 250.00 I was supervised by Nicko Ramos who was present and immediately available in the office suite. Vibha Carlos 01/17/2018 9:04 documented in this encounter Plan of Treatment Not on file documented as of this encounter Procedures Procedure Name Priority Date/Time Associated Diagnosis Comments URINE [id number] NE RATIO (ACR) Routine 01/17/2018 9:04 EST Type 2 diabetes mellitus with hyperglycemia, without long-term current use of insulin ([facility]) TSH Routine 01/17/2018 9:04 EST Type 2 diabetes mellitus with hyperglycemia, without long-term current use of insulin ([facility]) HEPATIC FUNCTION PANEL (ALB,ALK PHOS,ALT,AST,DBIL,T OT BONNIE,TOT PROT) Routine 01/17/2018 9:04 EST Type 2 diabetes mellitus with hyperglycemia, without long-term current use of insulin (HCC-CMS) LIPID PROFILE (INCLUDES CHOLESTEROL, TRIGLYCERIDES, HDL, LDL) Routine 01/17/2018 9:04 EST Type 2 diabetes mellitus with hyperglycemia, without long-term current use of insulin (HCC-CMS) BASIC METABOLIC PANEL (BMP) Routine 01/17/2018 9:04 EST Type 2 diabetes mellitus with hyperglycemia, without long-term current use of insulin (HCC-CMS) documented in this encounter Results * (ABNORMAL) BASIC METABOLIC PANEL (BMP) (01/17/2018 9:04 EST) Sodium 139 136 - 145 mEq/L 01/17/2018 15:30 [facility] Potassium 5.3(H) 3.5 - 5.0 mEq/L 01/17/2018 15:30 [facility] Chloride 101 96 - 110 mEq/L 01/17/2018 15:30 [facility] CO2 28 22 - 32 mEq/L 01/17/2018 15:30 [facility] BUN 19 10 - 26 mg/dl 01/17/2018 15:30 [facility] Creatinine 0.81 0.66 - 1.25 mg/dl 01/17/2018 15:30 [facility] GFR, Calculated 99 >60 ml/min/1.7 3m2 01/17/2018 15:30 [facility] Comment: eGFR calculated using CKD-EPI equation for non Americans. Multiply eGFR by 1.16 for Americans. Calcium 9.6 8.5 - 10.5 mg/dl 01/17/2018 15:30 [facility] Calculated Calcium 9.1 8.5 - 10.5 mg/dl 01/17/2018 15:30 [facility] Glucose, Serum 289(H) 70 - 100 mg/dl 01/17/2018 15:30 [facility] Fasting? Unknown 01/17/2018 14:26 [facility] Blood specimen (specimen) BLOOD SPECIMEN / Unknown 01/17/2018 9:04 EST 01/17/2018 14:25 EST us Yesi Marie NP CHEMISTRY & BLOOD GAS ORDER ELIU Final Result [facility] [address] [place] [address] * LIPID PROFILE (INCLUDES CHOLESTEROL, TRIGLYCERIDES, HDL, LDL) (01/17/2018 9:04 EST) Cholesterol 205 mg/dl 01/17/2018 15:30 [facility] Comment: Desirable:<200 Borderline High:200-239 High:>bp=286 Triglycerides 184 mg/dl 01/17/2018 15:30 [facility] Comment: Normal:<150 Borderline High:150-199 High:200-499 Very High:>tn=140 HDL 43 mg/dl 01/17/2018 15:30 [facility] Comment: Low:<40 Normal:40-60 Desirable: >60 LDL, Calculated 125 mg/dl 8 15:30 [facility] Comment: Optimal:<100 Near Optimal:100-129 Borderline High:130-159 High:160-189 Very High:>bj=323 Chol/HDL Ratio 4.8 01/17/2018 15:30 [facility] Fasting? Unknown 01/17/2018 14:26 [facility] Non HDL Cholesterol 162 mg/dl 01/17/2018 15:30 [facility] Comment: Desirable:<130 Borderline:130-159 High: 160-189 Very High: >bg=637 Blood specimen (specimen) BLOOD SPECIMEN / Unknown 01/17/2018 9:04 EST 01/17/2018 14:25 EST us Yesi Marie NP CHEMISTRY & BLOOD GAS ORDER ELIU Final Result [facility] [address] [place] [address] * ALBUMIN, URINE (01/17/2018 9:04 EST) Creatinine, Urn [place] 181.9 mg/dl 01/17/2018 16:56 [facility] Ur Albumin mg/dl 2.8 mg/dL 01/18/20 18 17:01 [facility] Comment:Domingo [place] 5600 Meth odology in use 07/04/2017 Urine Albumin to Creatinine Ratio 15.4 ug/mg Crea 01/17/2018 17:01 [facility] Comment: Normal: <30 ug/mg creatinine Moderately increased albuminuria: 30-300 ug/mg creatinine Severly increased albuminuria: >300 ug/mg creatinine [place] 5600 Methodology in use 07/04/2017 Urine specimen (specimen) URINE / Unknown 01/17/2018 9:04 EST 01/17/2018 14:26 EST Result [facility] Yesi Marie LAGGING MACHINE OPERATOR CHEMISTRY & BLOOD GAS ORDER ELIU Final Result Performing Organization Address [facility] de Phone Number [facility] [address] [place] [address] * (ABNORMAL) HEPATIC FUNCTION PANEL (ALB,ALK PHOS,ALT,AST,DBIL,TOT BONNIE,TOT PROT) (01/17/2018 9:04 EST) Albumin 4.6 3.4 - 4.9 g/dl 01/17/2018 15:30 [facility] Total Protein 7.7 6.3 - 8.2 g/dl 01/17/2018 15:30 [facility] Total Alkaline Phosphatase 79 38 - 126 U/L 01/17/2018 15:30 [facility] ALT 90(H) 21 - 72 U/L 01/17/2018 15:30 [facility] AST 91(H) 15 - 46 U/L 01/17/2018 15:30 [facility] Unconjugated Bilirubin 0.2 0.0 - 1.1 mg/dl 01/17/2018 15:30 [facility] Conjugated Bilirubin 0.0 0.0 - 0.3 mg/dl 01/17/2018 15:30 [facility] Bilirubin, Total 0.6 <1.4 mg/dl 01/18/20 18 15:30 [facility] Blood specimen (specimen) BLOOD SPECIMEN / Unknown 01/17/2018 9:04 EST 01/17/2018 14:25 EST Result [facility] Yesi Marie LAGGING MACHINE OPERATOR CHEMISTRY & BLOOD GAS ORDER ELIU Final Result Performing Organization Address [facility]/ZIP Co de Phone Number [facility] [address] [place] [address] * TSH (01/17/2018 9:04 EST) TSH 1.38 0.47 - 4.68 uIU/ml 01/17/2018 15:58 EST [facility] Comment: The results of this assay can be falsely lowered due to the consumption of Biotin. Blood specimen (specimen) BLOOD SPECIMEN / Unknown 01/17/2018 9:04 EST 01/17/2018 14:25 EST Yesi Marie LAGGING MACHINE OPERATOR CHEMISTRY & BLOOD GAS ORDER ELIU Final Result [facility] [address] [place] [address] documented in this encounter Visit Diagnoses Diagnosis Type 2 diabetes mellitus with hyperglycemia, without long-term current use of insulin ([facility])- Primary documented in this encounter Care Teams Alterations Tailor Relationship Specialty Start Date End Date Jason Batres MD [address] [place] [address] PCP - General 07/27/11 12/31/23 documented as of this encounter
--- OUTSIDE RECORDS SUMMARY | 2024-02-28 16:52 | XMS_ITS | Encounter Summary ---
Author Organization [facility] Address [address] [place] [address] Care Team Providers Care Business Unit Controller Name Role Phone Jason Batres MD Primary Care Provi margarita Reason for Visit * Reason Comments Foot Problem Encounter Details Date Type Department Care Team (Late st Contact Info) Description 07/09/2018 10:30 EDT Office Visit [facility] Foot & Ankle Program - [address] [address] Angelina Gonzales [address] [place] [address] Ulcer of foot, right, with [...] Progress Notes * Angelina Gonzales, BRENDA - 07/09/2018 1030 EDT Jeff Scott is a very pleasant 57 y.o. male patient who presents for follow up chronic right footulcer submetatarsal head 2. 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 This has been done in his shoe. He did bring in his boot today, and has the ability to get a new offloading insoles so we will plan to wear this more. He has had some increased discomfort in the foot in his shoes. He also has run out of dressings and needs a refill on these. He denies any nausea, vomiting, fever, chills. Patient Active Problem List Diagnosis Date Noted ??? Type 2 diabetes mellitus with diabetic polyneuropathy, with long-term current use of insulin ([facility]) 06/24/2018 Priority: Medium ??? Acute osteomyelitis of phalanx of foot ([facility]) 03/23/2016 Priority: Medium ??? Hypothyroidism 01/22/2013 Priority: Medium ??? Osteoarthritis of left hip 07/06/2014 ??? 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 Arthritis ??? Back pain ??? Diabetes mellitus ([facility]) ??? Hypothyroidism ??? Wears glasses [...] Ulcer plantar forefoot submetatarsal head 2. ??Measures 20 x 10 x 5??mm. ??Surrounding hyperkeratotic tissue and macerated tissue.??Granular wound base. ??No probe to bone, but does probe deep. ??No surrounding erythema or edema. ??No pain on palpation or probing. ??No malodor. ??No necrosis. No??drainage. ??MMT??5 out of 5. ??Gross protective sensation diminished, absent to forefoot. ASSESSMENT: 1. Ulcer of foot, right, with fat layer exposed ([facility]) 2. Status post amputation of toe of right foot ([facility]) 3. Type 2 diabetes mellitus with diabetic polyneuropathy, with long-term current use of insulin ([facility]) No orders of the defined types were placed in this encounter. PLAN: Mr. Scott presents today for follow-up chronic right foot ulcer submetatarsal 2. I debrided this today, skin and subcutaneous tissue, with a 15 blade, < 20cm2. It has gotten significantly bigger since I last saw him and almost has doubled in size. He has been on his feet again and has not been wearing any offloading devices. We had a long discussion today regarding the importance of wearing the boot at all times, which he is going to get fitted for again today. We discussed the importance oflimiting his activity. I recommended that he be out of work, and he plans to do this. I gave him some new dressing supplies. I am going to see him back in 2 to 3 weeks. He knows to call before then if any problems arise and is happy with this plan. Portions of this document have been prepared with speech recognition software or keyboard data administrator techniques. Minor irregularities or keyboarding misprints may be present documented in this encounter Plan of Treatment Not on file documented as of this encounter Visit Diagnoses Diagnosis Ulcer of foot, right, with fat layer exposed ([facility])- Primary Status post amputation of toe of right foot ([facility]) Lower limb amputation, other toe(s) Type 2 diabetes mellitus with diabetic polyneuropathy, with long-term current use of insulin ([facility]) documented in this encounter Care Teams Business Unit Controller Relationship Specialty Start Date End Date Jason Batres MD [address] [place], [place] [id number] PCP - General 07/27/11 12/31/23 documented as of this encounter
--- OUTSIDE RECORDS SUMMARY | 2024-02-28 16:53 | XMS_ITS | Encounter Summary ---
Author Organization [facility] Address [address] [place] [address] Care Team Providers Care Score Caller Name Role Phone Jason Batres MD Primary Care Provi margarita Reason for Visit * Reason Comments Other Encounter Details Date Type Department Care Team (Late st Contact Info) Description 10/02/2017 [facility] Endocrinology - [facility] [address] [place] [address] Yesi Marie NP [address] [facility] [address] [place] [address] Other Social History Tobacco Use [...] shopping? Answer Date of Assessment Author Yes 09/21/2017 8:19 EDT documented as of this encounter Mental Status * Because of a physical, mental, or emotional condition, does this person have serious difficulty concentrating, remembering, or making decisions? Answer Entry Date Author Yes 09/21/2017 8:19 EDT documented in this encounter Ordered Prescriptions Prescription Sig Dispense Quantity Refills Last Filled Start Date End Date levothyroxine (SYNTHROID) 112 mcg tablet TAKE ONE TABLET BY MOUTH ONE TIME DAILY 90 Tab 2 10/02/2017 05/28/2018 documented in this encounter Plan of Treatment Not on file documented as of this encounter Visit Diagnoses Not on filedocumented in this encounter Discontinued Medications Medication Sig Discontinue Reason Start Date End Da te levothyroxine (SYNTHROID) 112 mcg tablet TAKE ONE TABLET BY MOUTH ONE TIME DAILY Reorder 05/18/2017 10/02/2017 documented as of this encounter Care Teams Score Caller Relationship Specialty Start Date End Date Jason Batres MD [address] [place] [id number] PCP - General 07/27/11 12/31/23 documented as of this encounter
--- OUTSIDE RECORDS SUMMARY | 2024-02-28 16:53 | XMS_ITS | Encounter Summary ---
Author Organization [facility] Address [address] [place] [address] Care Team Providers Care Tree Girdler Name Role Phone Jason Batres MD Primary Care Provi margarita Reason for Visit * Reason Comments Foot Pain right Encounter Details Date Type Department Care Team (Late st Contact Info) Description 11/09/2017 13:00 EDT Office Visit [facility] Foot & Ankle Program - [address] [address] Angelina Gonzales [address] [place] [address] Skin ulcer of right foot with fat layer exposed ([facility]) (Primary Dx); Type 2 diabetes mellitus with diabetic polyneuropathy, with long-term current use of insulin ([facility]) Discharge Disposition: Auto Discharge Social History Tobacco [...] shopping? Answer Date of Assessment Author Yes 10/11/2017 9:40 EDT documented as of this encounter Mental Status * Because of a physical, mental, or emotional condition, does this person have serious difficulty concentrating, remembering, or making decisions? Answer Entry Date Author Yes 10/11/2017 9:40 EDT documented in this encounter Discharge Disposition Disposition Code Departure Means Destination Auto Discharge documented in this encounter Progress Notes * Angelina Gonzales, DPM - 11/09/2017 1300 EDT Images from the original note were not included. Jeff Scott is a very pleasant 56 y.o. male patient who presents for follow up right foot ulcer sub metatarsal head 2. He reports that he has been doing well. He has been staying out of work and has been wearing his diabetic offloading boot. He has been changing the dressing to the foot daily. Hebelieves it is doing well. He denies any pain in the foot. He denies any nausea, vomiting, fever chills. Patient Active Problem List Diagnosis Date Noted ??? Acute osteomyelitis of phalanx of foot ([facility]) 03/23/2016 Priority: Medium ??? Hypothyroidism 01/22/2013 Priority: Medium ??? Osteoarthritis of left hip 07/06/2014 ??? 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 Arthritis ??? Back pain ??? Diabetes mellitus ([facility]) ??? Hypothyroidism ??? Wears glasses Past Surgical History: Procedure Laterality Date ??? BRAIN SURGERY s/p tumor ??? EYE SURGERY Social History Substance Use Topics ??? Smoking status: Never Smoker ??? Smokeless tobacco: Former User Types: Chew ??? Alcohol use No Family History Problem Relation Age of Onset ??? Stroke Mother 71 ??? Cancer Father 65 lung cancer Current Outpatient Prescriptions Medication Sig Dispense Refill ??? blood glucose (FREESTYLE TEST) test strips 1 Strip by misc (non-drug; combo route) route 2 times daily 100 Each 1 ??? blood glucose meter (FREESTYLE FREEDOM LITE) Test FS BID. 1 Each 0 ??? exenatide microspheres (BYDUREON) 2 mg/0.65 mL pen injector Inject 2 mg into the skin once a week. 4 Each 3 ??? glimepiride (AMARYL) 4 mg tablet Take 1 Tab by mouth 2 times daily. 180 Tab 3 ??? ibuprofen (MOTRIN) 200 mg tablet Take 800 mg by mouth daily. ??? insulin glargine,hum.rec.anlog (INSULIN GLARGINE, BASAGLAR KWIKPEN,) 100 unit/mL (3 mL) injection pen Inject 55 Units into the skin at bedtime. 50 mL 3 ??? insulin pen needles 31G [...] ??Well-healed. Ulcer plantar forefoot submetatarsal head 2. ??Picture as below. Measures 10 x 8 mm.??Surrounding hyperkeratotic tissue- mild.. Mild maceration renan wound- improved.??Granular wound base. ??No probe to bone.. ??No surrounding erythema or edema. ??No pain on palpation or probing.??No malodor. ??No necrosis. No??drainage. ??MMT??5 out of 5. ??Gross protective sensation diminished. ?? Right foot ulcer after debridement: ASSESSMENT: No diagnosis found. No orders of the defined types were placed in this encounter. PLAN: Mr. Scott presents today for follow up right foot ulcer sub metatarsal head 2. I debrided this for him today, with a 15 blade, skin and subcutaneous tissue < 20 cm2. He tolerated this well. No signs of infection. This is healing well with him staying out of work and off of it more. We discussed these findings. I advised him that he will likely be out of work for at least another month. A note was written for work. He is going to continue with daily dressing changes and continue in the diabetic offloading boot. I am going to see him back in 2-3 weeks. He knows to call with any questions prior to follow up and is happy with this plan. Portions of this document have been prepared with speech recognition software or keyboard director data management techniques. Minor irregularities or keyboarding misprints may be present documented in this encounter Plan of Treatment Not on file documented as of this encounter Visit Diagnoses Diagnosis Skin ulcer of right foot with fat layer exposed ([facility] Primary Type 2 diabetes mellitus with diabetic polyneuropathy, with long-term current use of insulin ([facility]) documented in this encounter Care Teams Tree Girdler Relationship Specialty Start Date End Date Jason Batres MD [address] [place] [address] PCP - General 07/27/11 12/31/23 documented as of this encounter
--- OUTSIDE RECORDS SUMMARY | 2024-02-28 16:53 | XMS_ITS | Encounter Summary ---
Author Organization [facility] Address [address] [place] [address] Care Team Providers Care Office Agent Name Role Phone Jason Batres MD Primary Care Provi margarita Reason for Visit * Reason Comments Diabetes Encounter Details Date Type Department Care Team (Late st Contact Info) Description 03/27/2017 [facility] Jason Batres MD, [facility] [address] [place], [place] [id number] Yael Blackburn, RD [address] [place] [address] Social History Tobacco Use Types Packs/Day Years [...] shopping? Answer Date of Assessment Author Yes 03/21/2017 8:49 EST documented as of this encounter Mental Status * Because of a physical, mental, or emotional condition, does this person have serious difficulty concentrating, remembering, or making decisions? Answer Entry Date Author Yes 03/21/2017 8:49 EST documented in this encounter Progress Notes * Yael Blackburn, KAUSHAL - 03/27/2017 3073 EST [facility] Team [facility] Follow-up Visit Name:Jeff Scott Today's Date: 04/03/2017 Date of visit: 03/27/2017 SUBJECTIVE: Jeff Scott is a 56 y.o. male initially referred to the [facility] Team for diabetes self-management education by No ref. provider found. Jeff was last seen on 01/24/18 and returns today fora follow-up CHT CDE visit at [facility], [address] [place] [address]. [address], [place] accompanied by alone. This is the tenth encounter. Pt states that he is now working 2 jobs and feeling really great about things. Pt notes that he continues to struggle to remember to take his weekly medication on time. OBJECTIVE: Diabetes type: Type 2 Vitals: There were no vitals taken for this visit. BMI: There is no height or weight on file to calculate BMI. LABORATORY RESULTS: A1c: Lab Results Component Value Date HGBA1C 12.1 (H) 11/29/2016 HGBA1C 10.4 (A) 10/16/2016 HGBA1C 10.1 (A) 05/18/2016 DIABETES MEDICATIONS: Current AntiDiabetic Medications 11/29/2016 03/20/2017 exenatide microspheres (subcutaneous) inject 2mg into the skin every 7 days (2 mg/0.65 mL pnij) 2 MG WEEKLY (2 mg/0.65 mL pnij) dulaglutide (subcutaneous) - - albiglutide (subcutaneous) - - sitaGLIPtin (oral) - - glimepiride (oral) 4 MG BID 4 MG BID metFORMIN (oral) TAKE TWO TABLETS BY MOUTH TWICE DAILY (500 mg tab) TAKE TWO TABLETS BY MOUTH TWICEDAILY (500 mg tab) CURRENT INSULIN PROGRAM: exenatide 2mg weekly INJECTIONS: Patient reports that: Other injectables: once weekly not always on the same day Injection Technique: Patients reports: no problems with shots Site Selection: Patient is choosing appropriate sites: rotates Patient is rotating: appropriate Patient is discarding sharps: Safely DIABETES MEAL PLANNING: Type of meal planning: Consistent Carbohydrate Carbohydrate targets: 3 balanced meals daily with snacks as needed Follows meal plan: 50% to 75% of the time PRESENT MEAL PATTERN: Current eating habits:eats 3 meals plus snacks. Breakfast: egg sandwich with peppers and onions or cereal with milk Lunch: Salad with protein and a variety of vegetables or another bowl of cereal Dinner: Balanced dinner prepared by his Snacks: none reported Beverages: has decreased soda but still has soda 3 or more times weekly Alcohol: none reported PHYSICAL ACTIVITY: Type of exercise: none outside of activity at work BLOOD GLUCOSE MONITORING: Glucose monitoring: BID. With meter: One touch Barriers to monitoring: None Home Blood Glucoses Running: Fastin average 2 hours after meals 120-15 This was reported by pt no food logs available at this visit HYPOGLYCEMIA MANAGEMENT: Hypoglycemic event: none reported Patient is carrying a source of rapid acting CHO: no Patient has a current supply of glucagon? No Patient is wearing Medic Alert: not certain STRESS MANAGEMENT/COPING SKILLS: Pt reports appropriate stress management/coping skills ASSESSMENT: Jeff is seen today for continued diabetes self management support. Pt has started another job and is very satisfied with the work that he is doing and comments on the effect it has on his overall well being. Per recall, jeff continues to eat 3 meals a day but continues to struggle with balance. Would benefit from increased intake of vegetables and fruits and decreased intake of foods high in carbohydrate including things like cereal and soda. No blood glucose or meter to review home blood glucose results but pt reports fasting blood glucose elevated most days with an average of around 150 and 2 hours post meals within normal ranges. PT would benefit from improved meal balance and increased activity to assist in glycemic control. DIABETES SELF-MANAGEMENT EDUCATION: Engaged pt in conversation related to positive behavior change, self-management, goal setting and action planning using motivational interviewing and active listening. Reviewed dietary intake and physical activity. Reviewed relationship between meal composition (highcarbohydrate vs balanced), blood glucose levels, nutrient metabolism and storage. Provided MNT for diabetes including overview of types and sources of carbohydrates, how carbohydrates impact blood sugar, the importance of balanced meals and carbohydrate portion control. Discussed components of a balanced meal and the role that healthy fats, fiber and protein play in helping to better control blood sugar. Reviewed blood glucose measurements, including HgA1C and FBG. Discussed health goals, including motivators and barriers. Educational materials provided: none Method: verbal Taught to: Patient Barriers to education: no barriers Psychosocial, cultural, or economic barriers to care:none. Outcomes: Pt verbalized understanding Stage of Change: Preparation DIABETES SELF-MANAGEMENT RECOMMENDATIONS: - decrease frequency of having large portions of cereal for meals - increase consumption of non starchy vegetables at breakfast and lunch - continue to decrease frequency of soda consumption - increase activity as able. - improve medication routine to avoid missed doses PATIENT IDENTIFIED GOALS: - move small refrigerator closer to medications to not forget to take exentatide PATIENT'S PLAN: Follow up with RD in 1 month Current Visit Location: Dr. Batres Total Time: 60 minutes in person, 15 minutes charting Referral: none Follow up: Date: April Time: 9:30 AM With: Linda Dudley Dietitian Location: [address] Status: Active Yael Blackburn RD 04/03/2017 15:42 documented in this encounter Plan of Treatment Not on file documented as of this encounter Visit Diagnoses Not on filedocumented in this encounter Care Teams Office Agent Relationship Specialty Start Date End Date Jason Batres MD [address] [place] [address] PCP - General 07/27/11 12/31/23 documented as of this encounter
--- OUTSIDE RECORDS SUMMARY | 2024-02-28 16:53 | XMS_ITS | Encounter Summary ---
Author Organization [facility] Address [address] [place] [address] Care Team Providers Care Director Adult Name Role Phone Jason Batres MD Primary Care Provi margarita Reason for Visit * Reason Onset Date Comments Coordination Of Care 11/15/2017 Encounter Details Date Type Department Care Team (Late st Contact Info) Description 11/15/2017 Telephone [facility] Endocrinology - [facility] [address] [place] [address] Yesi Marie NP [address] [facility] [address] [place] [address] Coordination Of Care Social History Tobacco Use Types Packs/Day [...] encounter Miscellaneous Notes * Telephone Encounter - Connie Lunsford - 11/15/2017 1014 EDT [facility] called because they received a call asking for the chemistry teacher to call back. [facility]. The requested chemistry teacher to call back works for the [facility] team and can be reached at [phone]. [facility] didnewtonl Yael Blackburn (chemistry teacher) and leave a message to let them know Fátima Marie was trying to reach her. documented in this encounter Plan of Treatment Not on file documented as of this encounter Visit Diagnoses Not on filedocumented in this encounter Care Teams Director Adult Relationship Specialty Start Date End Date Jason Batres MD [address] [place] [id number] PCP - General 07/27/11 12/31/23 documented as of this encounter
--- OUTSIDE RECORDS SUMMARY | 2024-02-28 16:53 | XMS_ITS | Encounter Summary ---
Author Organization [facility] Address [address] [place] [address] Care Team Providers Care Process Control Engineer Name Role Phone Jason Batres MD Primary Care Provi margarita Reason for Visit * Reason Onset Date Comments Other 09/06/2017 Encounter Details Date Type Department Care Team (Late st Contact Info) Description 09/06/2017 Telephone [facility] Foot & Ankle Program - [place] [address] Herlinda Schuster LPN [address] [place] [address] Other Social History Tobacco Use Types Packs/Day [...] shopping? Answer Date of Assessment Author Yes 08/20/2017 11:22 EDT documented as of this encounter Mental Status * Because of a physical, mental, or emotional condition, does this person have serious difficulty concentrating, remembering, or making decisions? Answer Entry Date Author Yes 08/20/2017 11:22 EDT documented in this encounter Miscellaneous Notes * Telephone Encounter - Herlinda Schuster LPN - 09/06/2017 1358 EDT Received a call from Audra at the [facility] reporting that they are having a difficult time connecting with Jeff. They will continue to try and connect with him. He does have a follow up on 09/10/[address] Gonzales. Herlinda Schuster LPN 09/06/2017 14:01 documented in this encounter Plan of Treatment Not on file documented as of this encounter Visit Diagnoses Not on filedocumented in this encounter Care Teams Process Control Engineer Relationship Specialty Start Date End Date Jason Batres MD [address] [place] [address] PCP - General 07/27/11 12/31/23 documented as of this encounter
--- OUTSIDE RECORDS SUMMARY | 2024-02-28 16:53 | XMS_ITS | Encounter Summary ---
Author Organization [facility] Address [address] [place] [address] Care Team Providers Care Graphic Design Teacher Name Role Phone Jason Batres MD Primary Care Provi margarita Reason for Visit * Reason Comments Laceration glove caught in wood splitter. Bandaged. Bleeding controlled. Hx of brain tumor and has difficulty remembering and with things moving too fast. Injury occurred yesterday. Patient cleaned the wound but increased pain with movement and pain Encounter Details Date Type Department Care Team (Late st Contact Info) Description 01/08/2018 8:52 EST - 01/08/2018 11:04 EST Emergency [facility] Emergency Department - [address] [address] Carmelita Saldana MD [address] [facility], [address] [place] [address] Emergency, MD Cari Finger laceration, initial encounter (Primary Dx); Crush injury to finger, initial encounter Discharge Disposition: Home or Self Care Social [...] Sign Reading Time Taken Comments Blood Pressure 135/81 01/08/2018 0856 EST Pulse 104 01/08/2018 0856 EST Temperature 37 ??C (98.6 ??F) 01/08/2018 0856 EST Respiratory Rate - - Oxygen Saturation 98% 01/08/2018 0856 EST Inhaled Oxygen Concentration - - Weight 122.5 kg (270 lb) 01/08/2018 0855 EST Height - - Body Mass Index 34.67 12/05/2017 1047 EDT documented in this encounter Functional Status [...] documented in this encounter Discharge Diagnoses Diagnosis S61.210A Laceration without foreign body of right index finger without damage to nail, initial encounter-S61.210A[ICD-10-CM] S67.190A Crushing injury of right index finger, initial encounter-S67.190A[ICD-10-CM] W23.0XXA Caught, crushed, jammed, or pinched between moving objects, initial encounter-W23.0XXA[ICD-10-CM] Z23 Encounter for immunization-Z23[ICD-10-CM] E11.9 Type 2 diabetes mellitus without complications-E11.9[ICD-10-CM] E03.9 Hypothyroidism, unspecified-E03.9[ICD-10-CM] Z79.4 correction (current) use of insulin-Z79.4[ICD-10-CM] Z79.899 Other intermediate school teacher (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 Gently rinse finger with warm water 2. Pat dry 3. Apply bacitracin 4. Apply a clean banadage -After 3 days you may leave the wound open to the air while you are NOT working and resting in a clean environment. - try to ELEVATE the finger ABOVE the level of your heart as much as possible - Take Keflex, an antibiotic 4 times a day for [address] Batres for a wound re-check in 3 days. * Attachments The following attachments cannot be sent through Care Everywhere. * LACERATIONS: OPEN ([place]) * WOUND CHECK ([place]) documented in this encounter Medications at Time of Discharge blood glucose meter (FREESTYLE FREEDOM LITE) Test FS BID. 1 Each 0 11/11/2013 FREESTYLE FREEDOM LITE Use as directed as needed (glucose monitoring). 1 Each 11/14/2017 blood glucose (FREESTYLE TEST) test strips 1 Strip by misc (non-drug; combo route) route 2 times daily 100 Each 1 05/11/2014 2 cephALEXin (KEFLEX) 500 mg capsule Take 1 Cap by mouth 4 times daily for 7 days. 28 Cap 01/08/2018 8 exenatide microspheres (BYDUREON) 2 mg/0.65 mL pen injector Inject 2 mg into the skin once a week. 4 Each 3 12/12/2017 0 glimepiride (AMARYL) 4 mg tablet Take 1 Tab by mouth 2 times daily. 180 Tab 3 05/09/2017 9 ibuprofen (MOTRIN) 200 mg tablet Take 800 mg by mouth daily. 1 insulin glargine,hum.rec.a nlog (INSULIN GLARGINE, BASAGLAR SOLIKPEN,) 100 unit/mL (3 mL) injection penIndications:Typ e 2 diabetes mellitus with hyperglycemia, without long-term current use of insulin ([facility]) Inject 70 Units into the skin at bedtime. 65 mL 3 11/14/2017 0 insulin pen needles 31G x 05/18 Use 1 pen needle as directed daily. Brand: BD Ultra Fine Mini 100 Each 12 05/18/2017 9 lancets Test BID. 100 Each 1 11/11/2013 3 levothyroxine (SYNTHROID) 112 mcg tablet TAKE ONE TABLET BY MOUTH ONE TIME DAILY 90 Tab 2 10/02/2017 9 metFORMIN (GLUCOPHAGE) 1,000 mg tablet Take 1 Tab by mouth 2 times daily with breakfast and dinner. 180 Tab 3 05/09/2017 9 documented as of this encounter Ordered Prescriptions Prescription Sig Dispense Quantity Refills Last Filled Start Date End Date cephALEXin (KEFLEX) 500 mg capsule Take 1 Cap by mouth 4 times daily for 7 days. 28 Cap 01/08/2018 01/15/2018 documented in this encounter Discharge Disposition Disposition Code Departure Means Destination Home or Self Care Walk-out Home documented in this encounter ED Notes * Sadia Davidson, RN - 01/08/2018 1009 EST 1000- Left index finger with laceration soaked in chlorhexidine solution x 15 minutes. Tetanus administered, tylenol administered for pain- Pt drinking water. Awaiting XRay results. 1100- Wound care provided- education provided surrounding wound care and abx instructions. Sandwichgiven. * Carmelita Saldana MD - 01/08/2018 0912 EST DOS: 01/08/2018 Chief Complaint Patient presents with ??? Laceration glove caught in wood splitter. Bandaged. Bleeding controlled. Hx of brain tumor and has difficulty remembering and with things moving too fast. Injury occurred yesterday. Patient cleaned the wound but increased pain with movement and pain HPI HPI Comments: I, Jelani Marte, am scribing for Carmelita Saldana MD while she is personally performing the service. Jelani Marte 01/08/2018 9:12 Jeff Scott is a 57 y.o. male with a history of craniopharyngioma s/p resection, DM, and hypothyroidism who presents to the ED with a laceration to the left 2nd finger which he sustained yesterday.Patient reports that he got his glove caught in a wood splitter. He states that he wrapped the finger in gauze and was able to work the rest of the day, but last night his finger became increasingly painful and swollen, so he decided to come to the ED this morning. 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 He is unsure of when his last tetanus shot was. Social history: Non-smoker. No alcohol use. The history is provided by medical records and the patient. Review of Systems Review of Systems Constitutional: Negative for chills and fever. HENT: Negative for congestion and sore throat. Eyes: Negative for visual disturbance. Respiratory: Negative for cough and shortness of breath. Cardiovascular: Negative for chest pain. Gastrointestinal: Negative for abdominal pain, nausea and vomiting. Genitourinary: Negative for dysuria. Musculoskeletal: Negative for back pain and gait problem. Finger pain. Finger swelling. Skin: Positive for wound. Negative for color change and rash. Allergic/Immunologic: Negative for immunocompromised state. Neurological: Negative for headaches. Psychiatric/Behavioral: Negative for confusion. All other systems reviewed and are negative. The patient's past medical, family and social history was reviewed and updated as needed. No Known Allergies Vital Signs Temp: 37 ??C (98.6 ??F) Pulse: 104 SpO2: 98 % BP: 135/81 BP MAP: 95 mm Hg BP Device: BP Machine Patient Position: Sitting BP Cuff Location: Right arm O2 Device: None (Room air) Physical Exam Constitutional: He is oriented to person, place, and time. He appears well- developed and well-nourished. No distress. HENT: Head: Normocephalic and atraumatic. Eyes: Pupils are equal, round, and reactive to light. Conjunctivae and EOM are normal. Neck: Normal range of motion. Neck supple. Cardiovascular: Normal rate. Pulmonary/Chest: Effort normal. No respiratory distress. Musculoskeletal: Normal range of motion. He exhibits no edema. He has a medial left second digit crush injury with a significant laceration along the medial aspect with stellate formation. There is extensive swelling throughout the entire digit. No obvious deformity. Neurological: He is alert and oriented to person, place, and time. He exhibits normal muscle tone. Skin: Skin is warm and dry. Psychiatric: He has a normal mood and affect. Nursing note and vitals reviewed. RESULTS EKG orders: None Radiology orders: FINGER 2 OR MORE VIEWS Finger x-ray significant for no fracture or malalignment. I personally reviewed the above studies contemporaneously and independently. Discussed findings with attending radiologist. Relevant Data Procedures ED COURSE A medical screening exam was performed. 57 year old male presents with increased pain and swelling to the left 2nd finger after sustaining a laceration to the finger yesterday. Physical exam significant for a medial left second digit crush injury with a significant laceration along the medial aspect with stellate formation. There is extensive swelling throughout the entire digit. No obvious deformity. Multiple etiologies were considered for this patient's symptoms including fracture, dislocation, crush injury. The patient's finger was soaked in chlorhexidine solution for 15 minutes and he was administered a Tdap vaccine. Finger x-ray showed no fracture or malalignment. Patient treated with Keflex 500 mg PO and Tylenol 500 mg PO. Patient was discharged with a prescription for Keflex and advised to follow up with his PCP. Prior to discharge my usual and customary return precautions were reviewed with the patient and/or family. This included follow-up instructions and reasons to return to the Emergency Department if condition worsens, does not improve as expected, or other new concerns arise. Final diagnoses: Finger laceration, initial encounter Crush injury to finger, initial encounter DISPOSITION: Discharged The patient's pain was managed to an adequate level weighing risk vs. benefit of further medications. Upon departure from the Emergency Department, the patient's pain was not asked on a zero to ten scale. Any further pain treatment will be at the discretion of the provider following up with the patient based on their clinical assessment. Condition at departure from the Emergency Department: Good PCP: Jason Batres [facility] 01/08/2018 10:15 No flowsheet data found. This documentation is recorded by Jelani Marte acting as Scribe under the direction and presence of Carmelita Saldana MD. Carmelita Saldana MD: I personally performed the services recorded by the scribe in my presence. I confirm the scribe's documentation has been reviewed by me to accurately and completely record my work, treatment, procedures, and medical decision making. * Dede West RN - 01/08/2018 0856 EST Chief Complaint Patient presents with ??? Laceration glove caught in wood splitter. Bandaged. Bleeding controlled. Hx of brain tumor and has difficulty remembering and with things moving too fast. Injury occurred yesterday. Patient cleaned the wound but increased pain with movement and pain * Dede West RN - 01/08/2018 0855 EST Chief Complaint Patient presents with ??? Laceration glove caught in wood splitter. Bandaged. Bleeding controlled. Hx of brain tumor and has difficulty remembering and with things moving too fast. documented in this encounter Plan of Treatment Not on file documented as of this encounter Procedures Procedure Name Priority Date/Time Associated Diagnosis Comments FINGER 2 OR MORE VIEWS STAT 01/08/2018 9:37 EST documented in this encounter Results * FINGER 2 OR MORE VIEWS (01/08/2018 9:37 EST) Anatomical Region Laterality Modality Other 01/08/2018 9:37 EST 01/08/2018 11:49 EST Narrative 01/08/2018 11:49 EST FINGER 2 OR MORE VIEWS ??01/08/2018 9:37 AM Signs and Symptoms/Comments: ?? crush injury, swollen, painful. Comparison: None. Technique: 3 views of the left 2nd digit. Findings: There is no fracture or malalignment. Mineralization is age appropriate. The joint spaces are preserved. There is symmetric soft tissue edema surrounding the entire 2nd digit. There is a soft tissue defect on the volar mid 2nd digit. Impression: Extensive soft tissue edema and a volar skin defect at the site of laceration, without fracture or malalignment. I have personally reviewed the images and the above interpretation and agree with the findings. Procedure Note Gurwinder Thomas MD - 01/08/2018 FINGER 2 OR MORE VIEWS 01/08/2018 9:37 AM Signs and Symptoms/Comments: crush injury, swollen, painful. Comparison: None. Technique: 3 views of the left 2nd digit. Findings: There is no fracture or malalignment. Mineralization is age appropriate. The joint spaces are preserved. There is symmetric soft tissue edema surrounding the entire 2nd digit. There is a soft tissue defect on the volar mid 2nd digit. Impression: Extensive soft tissue edema and a volar skin defect at the site of laceration, without fracture or malalignment. I have personally reviewed the images and the above interpretation and agree with the findings. us Carmelita Saldana MD [facility]ES Final Result documented in this encounter Visit Diagnoses Diagnosis Finger laceration, initial encounter- Primary Crush injury to finger, initial encounter documented in this encounter Administered Medications Inactive Administered Medications - up to 3 most recent administrations Medication Order MAR Action Action Date Dose Rate Site acetaminophen (TYLENOL) 500 mg tablet 1 dose, Starting on Sun01/08/18 at 1006, Until Sun01/08/18 at 1039 Given 01/08/2018 10:39 EST 1,000 mg cephALEXin (KEFLEX) capsule 500 mg 500 mg, oral, NOW X1, 1 dose, On Sun01/08/18 at 1015, STAT Given 01/08/2018 10:39 EST 500 mg documented in this encounter Active and Recently Administered Medications Due to Daylight Saving Time, this section may contain times in both EDT and EST. Scheduled Medication Order 01/06/2018 01/07/2018 01/08/2018 cephALEXin (KEFLEX) capsule 500 mg (COMPLETED) 500 mg, oral, NOW X1, 1 dose, On Sun01/08/18 at 1015, STAT 1039 (Given - Provid er: Sadia Davidson, JARVIS) No Frequency Medication Order 01/06/2018 01/07/2018 01/08/2018 acetaminophen (TYLENOL) 500 mg tablet (COMPLETED) 1 dose, Starting on Sun01/08/18 at 1006, Until Sun01/08/18 at 1039 1039 (Given - Provid er: Sadia Davidson RN) documented in this encounter Care Teams Graphic Design Teacher Relationship Specialty Start Date End Date Jason Batres MD [address] [place] [id number] PCP - General 07/27/11 12/31/23 documented as of this encounter
--- OUTSIDE RECORDS SUMMARY | 2024-02-28 16:53 | XMS_ITS | Encounter Summary ---
Author Organization [facility] Address [address] [place] [address] Care Team Providers Care Complex Case Manager Name Role Phone Jason Batres MD Primary Care Provi margarita Reason for Visit * Reason Comments Foot Pain right Encounter Details Date Type Department Care Team (Late st Contact Info) Description 11/21/2017 11:00 EDT Office Visit [facility] Foot [facility] Ankle Program - [address] [address] Angelina Gonzales, [facility] [address] [place] [address] Ulcer of foot, right, with fat layer exposed ([facility]) (Primary Dx); Type 2 diabetes mellitus with diabetic polyneuropathy, with long-term current use of insulin ([facility]) Social History Tobacco Use Types Packs/Day [...] documented in this encounter Progress Notes * ChirstianAngelina Carol, DPM - 11/21/2017 1100 EDT Jeff Scott is a very pleasant 56 y.o. male patient who presents for follow up right foot ulcer submetatarsal head 2. Reports that he believes it has been doing well and getting smaller. He has nothad any pain here. He is overall feeling well and denies any nausea, vomiting, fever, chills. He has been wearing the diabetic offloading boot. He reports that it is very worn and he needs it replaced today. 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 Patient Active Problem List Diagnosis Date Noted ??? Acute osteomyelitis of phalanx of foot ([facility]) 03/23/2016 Priority: Medium ??? Hypothyroidism 01/22/2013 Priority: Medium ??? Osteoarthritis of left hip 07/06/2014 ??? 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 Craniopharyngioma ([facility]) 09/19/2010 ??? 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 Arthritis ??? Back pain ??? Diabetes mellitus ([facility]) ??? Hypothyroidism ??? Wears glasses Past [...] at bedtime. 65 mL 3 ??? insulin pen needles 31G [...] Ulcer plantar forefoot submetatarsal head 2. ??Measures 6 x 4 mm.??Surrounding hyperkeratotic tissue- mild.. Mild maceration renan wound- improved.??Granular wound base. ??No probeto bone. ??No surrounding erythema or edema. ??No pain on palpation or probing. ??No malodor. ??No necrosis. No??drainage. ??MMT??5 out of 5. ??Gross protective sensation diminished. ASSESSMENT: 1. Ulcer of foot, right, with fat layer exposed ([facility]) 2. Type 2 diabetes mellitus with diabetic polyneuropathy, with long-term current use of insulin ([facility]) No orders of the defined types were placed in this encounter. PLAN: Mr. Scott presents today for follow-up right foot ulcer submetatarsal and 2. This is improving in size and appearance. I debrided it today, skin and subcutaneous tissue, less than 20 cm??. No acute signs of infection. I evaluated his boot today. It is broken in the front and the inner sole is very worn. 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 We discussed that is likely overdoing it on the activity. I recommend that he continue to limit his activities of this wound can heal. He also is aware that he is at risk of infection if the debris gets into the wound. I am going to see him back in 2-3 weeks. He is going to continue with the daily dressing changes. He knows to call for any questions prior to follow-up and is happy with this plan. Portions of this document have been prepared with speech recognition software or keyboard voice data communications engineer techniques. Minor irregularities or keyboarding misprints may be present documented in this encounter Plan of Treatment Not on file documented as of this encounter Visit Diagnoses Diagnosis Ulcer of foot, right, with fat layer exposed ([facility])- Primary Type 2 diabetes mellitus with diabetic polyneuropathy, with long-term current use of insulin ([facility]) documented in this encounter Orders Equipment Count Last Ordered Date First Orde red Date DIABETIC WALKING BOOT -PNEUMATIC (L4360) 1 11/21/2017 documented in this encounter Care Teams Complex Case Manager Relationship Specialty Start Date End Date Jason Batres MD [address] [place] [id number] PCP - General 07/27/11 12/31/23 documented as of this encounter
--- OUTSIDE RECORDS SUMMARY | 2024-02-28 16:53 | XMS_ITS | Encounter Summary ---
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 Answer Date of Assessment Author Yes 05/18/2017 16:06 EDT documented as of this encounter Mental Status * Because of a physical, mental, or emotional condition, does this person have serious difficulty concentrating, remembering, or making decisions? Answer Entry Date Author Yes 05/18/2017 16:06 EDT documented in this encounter Patient Instructions * Patient Instructions* Yael Blackburn RD CDE - 05/31/2017 8:53 EDT Images from the original note were not included. You are starting : basaglar ___25____units at 10am Check blood sugars before meals and at bedtime Insulin glargine is a long acting insulin that most people take once a day. Your health care provider has asked you to start taking insulin glargine to lower your blood sugars. Insulin glargine starts working in about 2 to 3 hours after the injection and continues to be active in the bloodstream for most people for 24 hours. There is very little or no peak effect with insulin glargine. Peak effect refers to the time when the insulin is affecting your blood sugars the most. Your health care provider will tell you what time of the day to take your insulin glargine. It is important that you take the injection at about the same time every day. Insulin glargine is a CLEAR insulin. Insulin glargine cannot be mixed with any other insulin in a syringe. If you are taking a rapid or fast acting insulin at the same time, you must take 2 different shots and separate the injections byat least 2 inches on your body. Insulin glargine can be taken regardless to meals. However, if you will be fasting for an extended period as for example surgery or on clear liquids for a medical procedure, such as colonoscopy please contact the clinic since you may need some decrease in the lantus dose. Insulin glargine vials or pens are stable at room temperature for 28 days after opening. Your unopened vials or pens should be stored in the refrigerator and are good until the printed expiration dose. Please call the , Endocrinology & Diabetes at [phone] with any questions. HYPOGLYCEMIA What is it? Hypoglycemia is a low blood sugar. Generally we consider a low blood sugar to be 70 or below but that varies from person to person. What are the symptoms of a low blood sugar? Early symptoms: Shakiness, sweating, anxiety, irritability, hunger, rapid heartbeat, chills/clammy,dizzy/lightheaded, impatience Late symptoms include: Sleepiness, sadness, anger, aggression, tingling/numbness in lips/mouth, headache, blurred vision, nightmares/restless sleep, nausea, decreased reflexes/lack of coordination Extreme symptoms: Confusion, delirium. seizures, loss of consciousness Why is it important to treat low blood sugar quickly: Symptoms can progress quickly. If not treatedpromptly persons with low blood sugar can be at risk for falls, injuries, seizures, loss of consciousness and . Driving, use of machinery and caring for children while having a low blood sugar puts the patient and others at risk. How to treat low blood sugars: It is very important to always keep some type of rapid acting sugar with you. Examples include: glucose tabs, hard candies, jelly beans/gum drops, juice boxes. You should also wear some type of medic alert to let other people know that you have diabetes Rule of 15: If you are feel that you are having a low blood sugar test your fingerstick. If you do not have your meter then assume you are low and treat. You need to have approximately 15 grams of carbs, then wait 15 minutes before you recheck your blood sugar. If your blood sugar has risen to a level that you think is safe for you then you have treated the low blood sugar successfully. Usually this means that your blood sugar has risen about 30-50 points. If your blood sugar is still too low then you need to repeat the 15 gm snack and again wait 15 minutes to recheck. If the blood sugar has risen you have treated the low successfully. If you are still low you must call the Endocrinology clinic at [phone] and ask to speak immediately with a nurse. It is important to know that even though your blood sugar will rise 30-50 points to a safe level you might not feel better right away. If possible try to limit the snacks to 15 grams each time since your blood sugar may become very high if you have too much rapid acting carbohydrate. These are some examples of effective 15 gram choices: ?? cup of juice, ?? can of regular soda, 1 cup of skim or 1% milk 2 tablespoons of raisins, 10 jellybeans, 8 lifesavers or 3-4 glucose tablets 4 teaspoons of table sugar, 1 tablespoon of honey or maple syrup, 1 tablespoon of jelly/jam It is very important to know that any type of diet soda or diet candy will not work to raise your blood sugar. In addition, it is important to know that foods containing high amounts of fat such as ice cream and chocolate bars and pastries, crackers with peanut butter will slow down the absorption of the sugar. Causes of Low Blood Sugar: Food: missed meal or meal smaller than usual, restriction of carbs, weight loss Activity: more physical activity than usual, including housework and shopping, new exercise regimens Diabetes Medications: insulin and some diabetes pill doses are too high, confusion of insulins, overdose of insulin, taking meal time insulin and /or some types of diabetes pills without eating Alcohol: drinking alcohol can cause low blood sugars. It is important that you do not drink on an empty stomach and that you do not drink excessive amounts of alcohol. If you are drinking in larger amounts you should have somebody check your blood sugar every few hours. Questions? Please call the , Endocrinology & Diabetes at [phone] with any questions. ` Tips on Injecting Insulin You may use an alcohol swab if you like but it is not necessary if your skin is clean and dry Hold the syringe/pen like a pencil and insert needle straight into skin. Push the plunger or top button down with your index finger or thumb If the needle is not longer than 4 mm you do not need to pinch up a fold of skin. Always remove the pen needle after use. Discard the used syringe or pen needle safely. Always inject into fatty tissue. The best sites are the abdomen, back of the arm, top and outside of leg and hip. Sites for Injecting Insulin Abdomen: Stay at least one inch away from the bellybutton or any scars. Include front and sides of abdomen. Arm: Inject into fatty tissue in the back of the arm between the shoulder and the elbow. Thigh: Inject at least 4 inches or approximately one hand width above the knee and at least 4 inches down from the top of the leg. The best area is on the top and outer area of the thigh. Hip: Inject into the hip or ???wallet area?? , not into the lower buttock area. To be sure that your insulin is absorbed properly, change (or rotate) the sites where you inject insulin. If you use the same place over and over, the skin will get tough or lumpy and your insulin will not be absorbed well. Create a rotation plan. Two options to consider when determining your rotation pattern are as follows: a) Pick a site, such as the abdomen, and inject there for one month. Then move to a new site. b) Choose a site for each injection time and move around in the area with each shot. For example, use the same site for all the morning injections, another site for lunch injections and another for your evening injection Insulin Needle Disposal All sharps need to be disposed of safely. This includes lancets (fingersticks), insulin syringes and pen needles. ? Do not recap needles ? Use a puncture resistant container such as a sharps box, an empty liquid detergent bottle or empty coffee can ? Once the container is full secure the lid ? Label the container : ???DO NOT RECYCLE?? . Do not write ???used needles?? ? Place the container in your usual trash receptacle. The container can safely be deposited into a landfill. ? Always keep sharps, used or unused, out of the reach of children or pets Medic Alert Tags What is a Medic Alert Tag? A Medic Alert tag is simply a piece of metal that has important medical information engraved on it.It is a way to give doctors, nurses, and emergency service people important information about you at times when you are not able to speak for yourself. Who should wear a Medic Alert Tag? Anybody who has the following: ?? Serious and/or life-threatening allergies to medications, food , insect bites, latex, etc ?? Medications that may affect your body's reaction to injury, illness, or stress ?? Diseases that require prompt medical attention in case of injury, illness, or stress ?? Diseases that may cause confusion or loss of consciousness Where do I wear the Medic Alert Tag? You should wear the tag on either your right wrist or around your neck. Emergency responders are trained to look for medic alert tags there. They may not see it if it is placed on any other part of your body. They may not have time to search your purse or wallet or look in your car. But I don't want everybody to know my health problems Medic alert tags can be made to look like jewelry or a watch band. They are quite small and come william variety of metals and finishes. They can be added to a charm bracelet or necklace. In most cases,other people will not notice the tag at all. Where can I get a Medic Alert Tag? Most pharmacies and health care offices can give you information about ordering one. Some pharmacies may even have some available for sale. A medic Alert Tag speaks for you when you are unable to speak for yourself. It truly can save your life. As always, contact your diabetes care team if you have any questions. SICK DAY RULES Why worry about sick days? When you are ill, injured or more stressed than usual you can expect your blood sugars to be higherthan usual. Higher levels of stress hormones can make you more resistant to insulin. This will happen even if you are not eating or eating less than usual. It is not uncommon for your blood sugars tostart rising even before you feel ill. Examples of Sick Days: ??? Illnesses such as the common cold, bronchitis/pneumonia, flu, stomach/intestinal viruses and urinary tract infections ??? Skin infections such as foot sores, blisters, bad cuts or wounds on any body part, dental infections, eye infections ??? Bone fractures, muscles tears, sprains and strains, trauma to any part of your body,frozen shoulder, joint pain/inflammation ??? Surgery ??? Major emotional stress such as of family/friends, loss of job, marital/relationship breakup, loss of home, financial difficulties. major depression, anxiety disorder How to manage sick days safely: Insulin: ??? It is very important that you do not omit your daily or long acting insulin Lantus, Levemir or NPH for any reason. If you think that you should not take the full amount(s) please call the clinic and you will be given advice on dosing. ??? Insulin pump wearers should be familiar with using temporary basal rates and adjusting as needed. Bolus doses may need to be increased for both food intake and corrections. ??? Even if you are not eating you may still need rapid or fast acting insulin : Novolog, Humalog, Apidra, Regular to correct high blood sugars. If you do not know how much to take please call the clinic and ask to speak with a nurse. ??? If you are taking premixed insulin such as Novolog 70/30, Novolin or Humulin 70/30, Humalog 75/25, Humalog 50/50 please call the clinic for dosing advice. Incretin Therapy: ??? If you are taking Byetta, Symlin or Victoza you can continue these as long as you are not having any vomiting/diarrhea . If you are not able to eat at all do not take these medications. If you have any new onset of abdominal pain even without vomiting call the clinic before continuing these medications. ??? If you are taking Januvia/Sitagliptin or Onlgyza/Saxtagliptin you can continue these as long asyou are not having vomiting/diarrhea. If you are not able to eat at all do not take these medications. If you have any new onset of abdominal pain even without vomiting call the clinic before continuing these medications. Diabetes pills: ??? if you are unable to tolerate fluids and/or have vomiting/diarrhea it is recommended that you do not take Metformin/Glucophage or any combination pills that contain it. You can resume the Metformin/Glucophage once the illness has resolved and you are back on your usual diet. ??? If you are taking Glucotrol, Glipizide, Glimeprimide you can continue them as long as you are able to eat some carbs such as toast, crackers, chicken noodle soup. If your blood sugars however arelow do not take the pill(s). Food and Fluids: ??? If you are able to eat regularly make sure to increase fluids. Drink 6-8 oz of sugar-free and caffeine -free liquids every 1-2 hours such as water, decaf tea, diet soda, diet jello, broth ??? If you are not able to eat regularly you should try to have some easily digested carbohydrates every 1-2 hours. The following items all contain about 15 grams of carbs: ?? cup: applesauce, juice, regular jello, regular pudding, hot or cold cereal, eggnog, ice cream/sherbet [place], 1 piece, crackers to equal 15 gms, cookies to equal 15 gms 1 cup: chicken noodle/rice soup ??? If you are getting low blood sugars try 1 tbs of honey, maple syrup, jam Blood Sugar Monitoring: ??? Persons with Type 2 Diabetes should check blood sugar 4 times daily, including bedtime ??? Persons with Type 1 Diabetes should check blood sugars every 2 hours and need to check urine ketones every 4 hours especially when blood sugars are > 250 When to call the Diabetes Clinic or your Primary Care Provider: ??? Vomiting or diarrhea that lasts for more than 4 hours ??? Moderate or large ketones ? ? Blood sugars that are > 250 2 or more times during the day ??? Low blood sugars ??? You are not sure about your insulin doses or diabetes medicines There is 24 hour coverage for emergencies. You will speak with the on-call physician. Our phone number is [phone] If you or a family member are having trouble breathing or have changes in mental status call 911 for emergency medical attention Questions Please call the , Endocrinology & Diabetes at [phone] with any questions.? documented in this encounter Progress Notes * Yael Blackburn RD CDE - 05/31/2017 0853 EDT Community Health Team [facility] Follow-up Visit Name:Jeff Scott Today's Date: 05/31/2017 Date of visit: 05/31/2017 SUBJECTIVE: Jeff Scott is a 56 y.o. male initially referred to the Community Health Team for diabetes self-management education by No ref. provider found. Jeff was last seen on 04/27/17 and returns today for a follow-up CHT CDE visit at . [place] accompanied by alone. This is the twelth encounter. Pt states that he saw Fátima Marie at endocrinology but has not started the medication that she recommended. OBJECTIVE: Diabetes type: Type 2 Vitals: There were no vitals taken for this visit. BMI: There is no height or weight on file to calculate BMI. LABORATORY RESULTS: A1c: Lab Results Component Value Date HGBA1C 12.1 (A) 05/09/2017 HGBA1C 12.1 (H) 11/29/2016 HGBA1C 10.4 (A) 10/16/2016 DIABETES MEDICATIONS: Current AntiDiabetic Medications 05/09/2017 05/18/2017 insulin glargine (BASAGLAR KWIKPEN) (subcutaneous) - 25 Units QHS exenatide microspheres (subcutaneous) 2 MG WEEKLY (2 mg/0.65 mL pnij) 2 MG WEEKLY (2 mg/0.65 mL pnij) dulaglutide (subcutaneous) - - albiglutide (subcutaneous) - - sitaGLIPtin (oral) - - glimepiride (oral) 4 MG BID 4 MG BID metFORMIN (oral) 1,000 MG BID (BREAKFAST/DINNER) 1,000 MG BID (BREAKFAST/DINNER) CURRENT INSULIN PROGRAM: Pt has not started basaglar kwik pen but will stop and get it at pharmacy after this meeting INJECTIONS: Patient reports that: Basal: Has not started Bolus: not doing bolus injections Other injectables:exenatide once weekly never misses but might do 1 day later Injection Technique: Patients reports: no problems with shots Site Selection: Patient is choosing appropriate sites: thigh(s) Patient is rotating: appropriate Patient is discarding sharps: Safely DIABETES MEAL PLANNING: Type of meal planning: Consistent Carbohydrate Carbohydrate targets: 3 balanced meals daily Follows meal plan: Less than 25% of the time PRESENT MEAL PATTERN: Comments: Pt skips lunch daily but might have some snacks that he is now keeping at the barn including peanut butter crackers, popcorn and cranberry juice cups. Pt eats one balanced meal daily in [facility]. All other meals tend to be high in carbohydrate. 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 BLOOD GLUCOSE MONITORING: Glucose monitorin times daily. With meter: One touch Barriers to monitoring: None Home Blood Glucoses Running: patient forgot to bring HBG readings. Pt reports AM blood glucose around 160; mid day 160-170 and before dinner around 180. HYPOGLYCEMIA MANAGEMENT: Hypoglycemic event: no episodes of hypoglycemia reported Patient is carrying a source of rapid acting CHO: none Patient has a current supply of glucagon? No Patient is wearing Medic Alert: pt plans to inquire about this at pharmacy today STRESS MANAGEMENT/COPING SKILLS: Pt reports appropriate stress management/coping skills ASSESSMENT: Jeff is a 56 yo male seen today for follow up medical nutrition therapy and diabetes education. Ptrecently was seen at endocrinology my [facility] and was recommended to start insulin glargine at25 units daily. Pt has not done this yet and required follow up education on injection of this. 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 Pt is aware of need to do medication at the same time every day and notes this is a good time because it is before he heads to work. Diet recall indicates poor meal frequency with imbalanced meals. Reported home blood glucose results indicate hyperglycemia throughout the day with highest blood glucose reading prior to dinner.Suspect this might be related to food choices when at work though patient notes that he has replaced regular soda with diet soda. DIABETES SELF-MANAGEMENT EDUCATION: Engaged pt in conversation related to positive behavior change, self-management, goal setting and action planning using motivational interviewing and active listening. During this session we addressed the following topics: ?? Reviewed action and indications for basaglar insulin ?? Reviewed basaglar dose and titration guidelines ?? Discussed checking fasting blood glucose and reporting readings to primary care provider to adjust basaglar dose ?? Discussed the importance of taking basaglar at the same time each day and other medications as prescribed ?? Reviewed insulin storage guidelines ?? Reviewed and demonstrated use of kwik pen and insulin pen needle ?? Reviewed insulin site rotation and injection guidelines ?? Reviewed safe disposal of used insulin pen needles and other medical sharps ?? Discussed the importance a consistent carbohydrate intake and eating meals and snacks at regulartimes throughout the day ?? Discussed the signs and symptoms of hypoglyciemia ?? Reviewed 15 Minute Rule for Treatment of Hypoglycemia and appropriate oral carbohydrates to use as a recovery food in the event of a low blood sugar. ?? Discussed management of sick days ?? Encouraged to obtain and wear a Medic Alert which indicates the wearer has diabetes and takes insulin Educational materials provided basaglar start sheet and rule of 15 treatment for hypoglycemia Method: verbal Taught to: Patient Barriers to education: other Psychosocial, cultural, or economic barriers to care:none. Outcomes: Pt verbalized understanding Stage of Change: Preparation DIABETES SELF-MANAGEMENT RECOMMENDATIONS: Begin basaglar as instructed by provider at endocrinology Follow up with blood glucose results in 1 week Inquire about medical alert bracelet PATIENT IDENTIFIED GOALS: Begin basaglar today Call CDE in 1 week. PATIENT'S PLAN: Follow up in 1 week ADDITIONAL INFORMATION FOR PROVIDER: pt had not yet started recommended medication. Reviewed administration of medication, treatment of hypoglycemia. Pt plans to start today. Have requested phone call for blood glucose review in 1 week. Have requested that pt bring blood glucose logs or meter to all meetings. Current Visit Location: Dr. Batres Total Time: 65 minutes in person, 10 minutes charting Referral: none Follow up: Pt to call CDE in 1 week Status: Active Yael Blackburn RD 05/31/2017 11:33 documented in this encounter Plan of Treatment Not on file documented as of this encounter Visit Diagnoses Not on filedocumented in this encounter Care Teams Liquefied Natural Gas Operator Relationship Specialty Start Date End Date Jason Batres MD [address] [place] [address] PCP - General 07/27/11 12/31/23 documented as of this encounter
--- OUTSIDE RECORDS SUMMARY | 2024-02-28 16:53 | XMS_ITS | Encounter Summary ---
Author Organization [facility] Address [address] [place] [address] Care Team Providers Care Network Support Analyst Name Role Phone Jason Batres MD Primary Care Provi margarita Reason for Visit * Reason Onset Date Comments Appointment Related 05/09/2017 Encounter Details Date Type Department Care Team (Late st Contact Info) Description 05/09/2017 Telephone Jason Batres MD, PC [address] [place], [place] [id number] Jason Batres MD [address] [place] [address] Appointment Related Social History Tobacco [...] 03/21/2017 8:49 EST documented in this encounter Miscellaneous Notes * Telephone Encounter - Keyla Rhodes - 05/09/2017 1259 EST I left a voice message on home phone regarding appt with Fátima Marie on 05/18/17 at 4 p.m. documented in this encounter Plan of Treatment Not on file documented as of this encounter Visit Diagnoses Not on filedocumented in this encounter Care Teams Network Support Analyst Relationship Specialty Start Date End Date Jason Batres MD [address] [place] [address] PCP - General 07/27/11 12/31/23 documented as of this encounter
--- OUTSIDE RECORDS SUMMARY | 2024-02-28 16:53 | XMS_ITS | Encounter Summary ---
Author Organization [facility] Address [address] [place] [address] Care Team Providers Care Organic Preparation Analyst Name Role Phone Jason Batres MD Primary Care Provi margarita Reason for Visit * Reason Comments Diabetes Follow up, A1c done 11/14/17- 13.4 Encounter Details Date Type Department Care Team (Late st Contact Info) Description 12/12/2017 9:00 EDT Office Visit Jason Batres MD, PC [address] [place] [address] Jason Batres MD [address] [place] [id number] Type 2 diabetes mellitus without complication, without long-term current use of insulin (HCC) (Primary Dx) Social History Tobacco Use [...] Sign Reading Time Taken Comments Blood Pressure 122/82 12/12/2017 0900 EDT Pulse 94 12/12/2017 0900 EDT Temperature 37 ??C (98.6 ??F) 12/12/2017899 EDT Respiratory Rate - - Oxygen Saturation 98% 12/12/2017899 EDT Inhaled Oxygen Concentration - - Weight 124.3 kg (274 lb) 12/12/2017899 EDT Height - - Body Mass Index 35.18 12/05/2017 1047 EDT documented in this encounter [...] Progress Notes * Jason Batres MD - 12/12/2017899 EDT Subjective: Patient ID: Jeff Scott is an 56 y.o. male. Chief Complaint Patient presents with ??? Diabetes Follow up, A1c done 11/14/17- 13.4 Diabetes Pertinent negatives for diabetes include no chest pain. Jeff is here for a diabetic follow-up. He continues to see endocrinology and is now on weekly Bydureon as well as Basaglar. The long acting insulin has been increased after he was seen by Fátima Marie a month ago and his A1C was up to 13.4. He is now taking 70 units of lantus which is up from 55 units. He says he does not miss this, but sometimes he will forget his Bydureon by a few days. He is working on where he puts the pen so he will remember to take it. His FS have been running mostly around 160-180, with highs into the low 200's and sometimes down to 140. We discussed his diet again, at work, the wire straightening machine operator of [employer] will bring pizza or doughnuts and Jeff will hve those if he forgets to bring his lunch. His usual lunch is two pieces of toast with peanut butter. He has stopped high tet soda and now only drinks diet. He continues to see Dr. Gonzales and his foot ulcer is getting much better. He has been more acautous at work and also uses the Beryllium bot. He does not have it on today as he is driving. I talked to Jeff guillermo help at his appointments as it is hard for him to remsaule clarisa. His wfie cannot come as she teaches jimi day. He thinks he could bring his brother Terry who lives 5minutes away and works for himself a s a builder so could set his own schedule. Jeff was teraful today in discussing his memory issues. Social Current Outpatient Prescriptions on File Prior to Visit Medication Sig Dispense Refill ??? blood glucose (FREESTYLE TEST) test strips 1 Strip by misc (non-drug; combo route) route 2 times daily 100 Each 1 ??? blood glucose meter (FREESTYLE FREEDOM LITE) Test FS BID. 1 Each 0 ??? FREESTYLE FREEDOM LITE Use as [...] chest pain. - See HPI Objective: BP 122/82 Pulse 94 Temp 37 ??C (98.6 ??F) (Tympanic) Wt (!) 124.3 kg (274 lb) SpO2 98% BMI 35.18 kg/m2 Physical Exam Constitutional: He is oriented to person, place, and time. He appears well- developed and well-nourished. No distress. Neck: No carotid bruits Cardiovascular: Normal rate, regular rhythm and normal heart sounds. No murmur heard. Pulmonary/Chest: Effort normal and breath sounds normal. Musculoskeletal: Right foot in walking boot Neurological: He is alert and oriented to person, place, and time. Psychiatric: He has a normal mood and affect. Assessment: Plan: There are no diagnoses linked to this encounter. 1. Diabetes I spent 30 minutes with Jeff counseling on his diabetes and diet changes His A1C is now up to 13.4, but his basal insulin was just increased and he has been following up with endocrinology Today we discussed some dietary changes he can work on- he could try to make healthier choices at lung and try to make sure he brings something to eat so he does not end up eating the pizza or doughnuts that his boss brings for lunch. I do not think bolus insulin will work given his memory issus. He thinks he could try to bring his brother, Terry, to his visits so that Terry can help him some with med management 2. Diabetic foot ulcer Continue with care as per podiatry and we talked about checking his foot daily. 3. Depression Jeff was tearful today and at a follow-up visit I would like to discuss whether he would benefit from an SSRI follow up here in three months I spent 30 minutes of face-face time with the patient, over half of it was in counseling Jason Batres MD documented in this encounter Plan of Treatment Not on file documented as of this encounter Visit Diagnoses Diagnosis Type 2 diabetes mellitus without complication, without long-term current use of insulin (HCC)- Primary documented in this encounter Care Teams Organic Preparation Analyst Relationship Specialty Start Date End Date Jason Batres MD [address] [place] [id number] PCP - General 07/27/11 12/31/23 documented as of this encounter
--- OUTSIDE RECORDS SUMMARY | 2024-02-28 16:53 | XMS_ITS | Encounter Summary ---
Author Organization [facility] Address [address] [place] [address] Care Team Providers Care Adjunct History Instructor Name Role Phone Jason Batres MD Primary Care Provi margarita Reason for Visit * Reason Onset Date Comments Medications Refill 12/12/2017 Encounter Details Date Type Department Care Team (Late st Contact Info) Description 12/12/2017 Refill Jason Batres MD, PC [address] [place], [place] [id number] Jason Batres MD [address] [place] [phone] Medications Refill Social History Tobacco [...] Refills Last Filled Start Date End Date exenatide microspheres (BYDUREON) 2 mg/0.65 mL pen injector Inject 2 mg into the skin once a week. 4 Each 3 12/12/2017 10/15/2019 documented in this encounter Plan of Treatment Not on file documented as of this encounter Visit Diagnoses Not on filedocumented in this encounter Discontinued Medications Medication Sig Discontinue Reason Start Date End Da te exenatide microspheres (BYDUREON) 2 mg/0.65 mL pen injector Inject 2 mg into the skin once a week. Reorder 05/09/2017 12/12/2017 documented as of this encounter Care Teams Adjunct History Instructor Relationship Specialty Start Date End Date Jason Batres MD [address] [place] [address] PCP - General 07/27/11 12/31/23 documented as of this encounter
--- OUTSIDE RECORDS SUMMARY | 2024-02-28 16:53 | XMS_ITS | Encounter Summary ---
Author Organization [facility] Address [address] [place] [address] Care Team Providers Care Hanging Flags Decorator Name Role Phone Jason Batres MD Primary Care Provi margarita Reason for Referral * Referral (Routine/Next Available) - Closed Specialty Diagnoses / Procedures [facility] To Contact Diagnoses Ulcer of right foot, unspecified ulcer stage ([facility]) Angelina Gonzales DPM Phone: tel: fax: [facility], [address] [address] Phone: tel: fax: Referral ID Status Reason Start Date Expiration Date V isits Requested Visits Authorized [id number] Closed Specialty Services Required 07/20/2017 1 1 Question Answer I certify that this patient is under my care and that I, or another Medicare allowed practitioner (DO KEN, VARGHESE) working with me, had a [id number] encounter with this patient on this date: 07/20/2017 I further certify that the anag-ya-[id number] encounter was in whole or in part related to the reason the patient needs home health care. Yes The discharge summary or progress note will provide further details that support the need for the home health services and the plan of care. Yes Enter the allowed practitioner (DO KEN, VARGHESE) who will provide oversight of this patient's home heatlh care needs and plan of care Angelina Gonzales DPM The patient? s homebound status is related to the following diagnoses, illness or condition (describe): diabetic foot ulcer The patient has a condition due to an illness or injury that restricts the ability to leave home except with: The assistance or supervision of another person Leaving the home is medically contraindicated due to (reason 1): Not medically contraindicated, but needs assistance as indicated above. Leaving home requires a considerable and taxing effort with mobility limited by the following (criteria 1): Other Please Specify: difficulty seeing the bottom of the foot , due to TBI and neuropathy has had difficulties changing dressings Nursing skilled care requested: Wound care, Nursing asessment care home assessment needed related to this encounter: Other Please specify: dressing changes Usp Referral - Wound Care: (Please include care and frequency.) Other Please Specify: diabetic foot ulcer right foot Scheduling Comments (optional ? describe specific scheduling needs if applicable): JUNO Comments Change dressing to right foot sub metatarsal head 2 wound daily. Pack with a saline wet-to-dry gauze dressing. Cover foot with gauze dressing. Okay to cleanse wound with saline prior to dressing changes. He is limited weightbearing in a diabetic offloading boot. He has follow-up with me again next week. He is starting antibiotics today. Reason for Visit * Reason Onset Date Comments Other 07/20/2017 Encounter Details Date Type Department Care Team (Late st Contact Info) Description 07/20/2017 Orders Only [facility] - [facility] [address] [place], [place] [id number] Herlinda Schuster LPN [address] [place] [address] Ulcer of right foot, unspecified ulcer stage ([facility]) (Primary Dx) Social History Tobacco Use Types [...] shopping? Answer Date of Assessment Author Yes 07/20/2017 8:57 EDT documented as of this encounter Mental Status * Because of a physical, mental, or emotional condition, does this person have serious difficulty concentrating, remembering, or making decisions? Answer Entry Date Author Yes 07/20/2017 8:57 EDT documented in this encounter Plan of Treatment Scheduled Referrals Name Type Priority Associated Diagnoses Orde r Schedule AMB CONS/FOLLOW UP HOME HEALTH SERVICES Outpatient Referral Routine Ulcer Of Right Foot, Unspecified Ulcer Stage ([facility]) Ordered: 07/20/2017 documented as of this encounter Visit Diagnoses Diagnosis Ulcer of right foot, unspecified ulcer stage ([facility])- Primary documented in this encounter Care Teams Hanging Flags Decorator Relationship Specialty Start Date End Date Jason Batres MD [address] [place] [id number] PCP - General 07/27/11 12/31/23 documented as of this encounter
--- OUTSIDE RECORDS SUMMARY | 2024-02-28 16:53 | XMS_ITS | Encounter Summary ---
Author Organization [facility] Address [address] [place] [address] Care Team Providers Care Recycler Name Role Phone Jason Batres MD Primary Care Provi margarita Encounter Details Date Type Department Care Team (Late st Contact Info) Description 07/31/2017 Community Health Team Jason Batres MD, PC [address] [place], [place] [phone] Yael Blackburn, RD [address] [place] [address] Social History Tobacco Use Types [...] shopping? Answer Date of Assessment Author Yes 07/26/2017 12:18 EDT documented as of this encounter Mental Status * Because of a physical, mental, or emotional condition, does this person have serious difficulty concentrating, remembering, or making decisions? Answer Entry Date Author Yes 07/26/2017 12:18 EDT documented in this encounter Patient Instructions * Patient Instructions* Alexey Larsen-Cde, KAUSHAL Conley CDE - 07/31/2017 13:56 EDT Images from the original note were not included. HYPOGLYCEMIA What is it? Hypoglycemia is a [...] you must call the Endocrinology clinic at [phone] and ask to speak immediately with a [...] check your blood sugar every few hours. . You are starting: Lantus Insulin and will take 35units daily at bedtime You will/not continue to take oral diabetes medication Check blood sugar fasting and one other time per day Please keep a record of your blood sugar readings to share with CDE, endocrinology and primary care Please carry an oral carbohydrate food to quickly treat low blood sugar if needed If your are having urgent issues call the clinic day or night and you will speak with the on- call physician baskelli Basaglar is a long acting insulin that most people take once a day. Your health care provider has asked you to start taking basaglar to lower your blood sugars. Basaglar starts working in about 2 to 3 hours after the injection and continues to be active [facility] for most people for 24 hours. There is very little or no peak effect with basaglar. Peak effect refers to the time when the insulin is affecting your blood sugars the most. Your health care provider will tell you what time of the day to take your basaglar. It is importantthat you take the injection at about the same time every day. basaglar is a CLEAR insulin. basaglar cannot be mixed with any other insulin in a syringe. If you are taking a rapid or fast acting insulin at the same time, you must take 2 different shots and separate the injections by at least 2 inches on your body. basaglar can be taken regardless to meals. However, if you will be fasting for an extended period as for example surgery or on clear liquids for a medical procedure, such as colonoscopy please contact the clinic since you may need some decrease in the basaglar dose. basaglar vials or pens are stable at room temperature for 28 days after opening. Your unopened vials or pens should be stored in the refrigerator and are good until the printed expiration dose. Please call the [facility], Endocrinology & Diabetes at [phone] with any questions. HYPOGLYCEMIA What is it? [...] you must call the Endocrinology clinic at [phone] and ask to speak immediately with a [...] check your blood sugar every few hours. ` Tips on Injecting Insulin You may [...] hot or cold cereal, eggnog, ice cream/sherbet [place], 1 piece, crackers to equal 15 gms, [...] the on-call physician. Our phone number is [phone] If you or a family member are having trouble breathing or have changes in mental status call 911 for emergency medical attention documented in this encounter Progress Notes * Alexey Ramirez, KAUSHAL Conley CDE - 07/31/2017 1356 EDT [facility] Team Pilling Machine Operator Follow-up Visit Name:Jeff Scott Today's Date: 08/06/2017 Date of visit: 07/31/2017 SUBJECTIVE: Jeff Scott is a 56 y.o. male initially referred to the [facility] Team for diabetes self-management education by Dr. Batres. Jeff was last seen on 05/31/17 and returns today for a follow-up CHT CDE visit at [address], [place] accompanied by alone. This is the thirteenth encounter. Pt states that he has been having the [facility] visit a couple of times each week to assist in the care of his foot. Pt states that his has requested a meal plan. Pt notes that he hasn't been working and this is really upsetting to him noting that he can't wait to get back to work. OBJECTIVE: Diabetes type: Type 2 Vitals: There were no vitals taken for this visit. BMI: There is no height or weight on file to calculate BMI. LABORATORY RESULTS: A1c: Lab Results Component Value Date HGBA1C 12.0 (H) 07/25/2017 HGBA1C 12.1 (A) 05/09/2017 HGBA1C 12.1 (H) 11/29/2016 DIABETES MEDICATIONS: Current AntiDiabetic Medications 05/09/2017 05/18/2017 insulin glargine (BASAGLAR KWIKPEN) (subcutaneous) - 25 Units QHS* exenatide microspheres (subcutaneous) 2 MG WEEKLY (2 mg/0.65 mL pnij) 2 MG WEEKLY (2 mg/0.65 mL pnij) dulaglutide (subcutaneous) - - albiglutide (subcutaneous) - - sitaGLIPtin (oral) - - glimepiride (oral) 4 MG BID 4 MG BID metFORMIN (oral) 1,000 MG BID (BREAKFAST/DINNER) 1,000 MG BID (BREAKFAST/DINNER) * Patient has reported taking this medication differently or not taking at all. CURRENT INSULIN PROGRAM: Insulin glargine 25 units QHS exenatide 2mg weekly INJECTIONS: Patient reports that: Basal: All Other injectables: All Injection Technique: Patients reports: per pt recall innappropriate site selection for both injections and testing bloodglucose. reinstructed on both. Pt was injecting just above the knee as evidenced by bruising and was testing at forearm. Site Selection: Patient is choosing appropriate sites: See above Patient is rotating: no Patient is discarding sharps: Safely DIABETES MEAL PLANNING: Type of meal planning: Consistent Carbohydrate Carbohydrate targets: 3 balanced meals daily using the 1800 calorie meal plan to ensure adequate carbohydrate intake at meals. Follows meal plan: Less than 25% of the time PRESENT MEAL PATTERN: Comments: Unable to obtain a thorough food recall at this time. PHYSICAL ACTIVITY: Type of exercise: limited activity due to change in work schedule BLOOD GLUCOSE MONITORING: Glucose monitoring: BID. With meter: One touch Barriers to monitoring: inappropriate testing sites Home Blood Glucoses Running: Fastin; at bed 177. HYPOGLYCEMIA MANAGEMENT: Hypoglycemic event: none reported but does note feeling lightheaded at the barn sometimes Patient is carrying a source of rapid acting CHO: 15 grams of fast acting carbs was reviewed by Anna at Endocrinology and myself . Patient has a current supply of glucagon? No Patient is wearing Medic Alert: No STRESS MANAGEMENT/COPING SKILLS: Pt reports appropriate stress management/coping skills. Will further improve with clearance to return to work. ASSESSMENT: Jeff was seen today for continued medical support for diabetes self management. This is the thirteenth encounter Nutrition Diagnosis: altered nutrition related labs (a1c); over weight/obesity Etiology: imbalanced nutrition, excess energy intake, high carbohydrate diet, limited physical activity, questionable technique for diabetes medication delivery and skills for testing. Signs & Symptoms: per recall large portions of high carbohydrate foods, excess intake of sweetened beverages. Per recall and pt demonstration of basal and bydureon delivery indicates improper site selection. With demonstration of home blood glucose monitoring pt demonstrates using sample of blood from forearm rather than fingertips. Intervention: MNT/Education: Engaged patient in conversation related to positive behavior change, self-management, goal setting and action planning using motivational interviewing and active listening. - Reviewed dietary intake and physical activity. - Reviewed blood glucose measurements, including HgA1C and FBG. - Reviewed relationship between meal composition (high carbohydrate vs balanced), blood glucose levels, nutrient metabolism and storage. - Provided MNT for diabetes including overview of types and sources of carbohydrates, how carbohydrates impact blood sugar, the importance of balanced meals and carbohydrate portion control. Discussed components of a balanced meal and the role that healthy fats, fiber and protein play in helping tobetter control blood sugar. - provided pt with a 5-day meal plan as requested by partner. 5-day meal plan shows 45-60grams of carbohydates/meal - reviewed treatment of low blood glucose and provided with hypoglycemia treatment directions - reviewed insulin delivery technique and provided with image of appropriate site selection. - reviewed home blood glucose monitoring. Recommendation/Plan: RD recommends 3 balanced, consistent meals per day w/ whole grains, lean protein, 5 servings non-starchy vegetables and 4 servings fruit; <10% total energy from saturated fat;<5% total energy from added sugar. 30-60 minutes aerobic exercise 3-5 days per week. Appropriatesite selection for insulin delivery and fingertips for home blood glucose monitoring. Provided with a 5-day meal plan offering pt with several selections for all meals and snacks. Monitoring & Evaluation: RD to monitor dietary intake and physical activity, understanding of nutrition education and recommendations, nutrition related labs and vitals Educational materials provided: 5-day meal plan Method: handout and verbal Taught to: Patient Barriers to education: other and no barriers Psychosocial, cultural, or economic barriers to care:other. Outcomes: Pt verbalized understanding Stage of Change: Contemplation DIABETES SELF-MANAGEMENT RECOMMENDATIONS: RD recommends 3 balanced, consistent meals per day w/ whole grains, lean protein, 5 servings non-starchy vegetables and 4 servings fruit; <10% total energy from saturated fat; <5% total energy from added sugar. 30-60 minutes aerobic exercise 3-5 days per week. Appropriate site selection for insulin delivery and fingertips for home blood glucose monitoring. Provided with a 5-day meal plan offering pt with several selections for all meals and snacks. PATIENT'S PLAN: Follow up with RD in 3 weeks. ADDITIONAL INFORMATION FOR PROVIDER: Please see assessment. Current Visit Location: Dr. Batres Total Time: 70 minutes in person, 15 minutes charting Referral: none Follow up: Date: Sunday, August 13, 2017 Time: 8:30 AM With: Linda Dudleyitifredy Location: [address], [place] Status: Active KAUSHAL Anderson 08/06/2017 15:10 documented in this encounter Plan of Treatment Not on file documented as of this encounter Visit Diagnoses Not on filedocumented in this encounter Care Teams Recycler Relationship Specialty Start Date End Date Jason Batres MD [address] [place] [address] PCP - General 07/27/11 12/31/23 documented as of this encounter
--- OUTSIDE RECORDS SUMMARY | 2024-02-28 16:53 | XMS_ITS | Encounter Summary ---
Author Organization [facility] Address [address] [place] [address] Care Team Providers Care Ammonium Nitrate Crystallizer Name Role Phone Jason Batres MD Primary Care Provi margarita Reason for Visit * Reason Comments Foot Pain right Encounter Details Date Type Department Care Team (Late st Contact Info) Description 09/21/2017 8:00 EDT Office Visit [facility] Foot & Ankle Program - [address] [address] Angelina Gonzales [facility] [address] [place] [address] Ulcer of foot, right, with fat layer exposed ([facility]) (Primary Dx); Type 2 diabetes mellitus with diabetic polyneuropathy, with long-term current use of insulin ([facility]) Social History Tobacco Use [...] Sign Reading Time Taken Comments Blood Pressure - - Pulse - - Temperature - - Respiratory Rate - - Oxygen Saturation - - Inhaled Oxygen Concentration - - Weight 124.3 kg (274 lb) 09/21/2017 0816 EDT Height 188 cm (6' 2) 09/21/2017 0816 EDT Body Mass Index 35.18 09/21/2017 0816 EDT documented in this encounter Functional Status [...] 09/21/2017 8:19 EDT documented in this encounter Progress Notes * Angelina Gonzales DPM - 09/21/2017 0800 EDT Images from the original note were not included. Jeff Scott is a very pleasant 56 y.o. male patient who presents for follow up right foot ulcer. He reports that this has been doing well. He has been changing the dressing daily. He has been wearing the walking boot. He believes he needs a new insole for the boot, as his current insole is getting were very worn out. He missed his last appointment, noting that he forgot he had it. Overall he is feeling well today and denies any nausea, vomiting, fever, chills. Patient Active Problem List Diagnosis Date Noted ??? Acute osteomyelitis of phalanx of foot ([facility]) 03/23/2016 Priority: Medium ??? Hypothyroidism 01/22/2013 Priority: Medium ??? Osteoarthritis of left hip 07/06/2014 ??? 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 Arthritis ??? Back pain ??? Diabetes mellitus ([facility]) ??? Hypothyroidism ??? Wears glasses Past Surgical [...] (FREESTYLE TEST) test strips 1 Strip by [facility] (non-drug; combo route) route 2 times daily [...] BY MOUTH ONE TIME DAILY 90 Tab 0 ??? metFORMIN (GLUCOPHAGE) 1,000 mg tablet Take 1 Tab by mouth 2 times daily with breakfast and dinner. 180 Tab 3 No current facility-administered medications for this visit. No Known Allergies Review of Systems A ten point review of systems was performed. Pertinent positives are listed below, all others are negative. Vital signs: height is 188 cm (74) and weight is 124.3 kg (274 lb) (abnormal). PHYSICAL EXAM: General: AO x 3, NAD Lower extremity:??RLE: Palpable pedal pulses. ??Skin temperature gradient within normal limits. ??Capillary filling time less than 3 seconds to all toes. ??Status post right second toe amputation. ??Well-healed. Ulcer plantar forefoot submetatarsal head 2. ??Picture as below. ??Surrounding hyperkeratotic tissue- minimal. Mild maceration renan wound. Granular wound base. No probe to bone.. ??No surrounding erythema or edema. ??No pain on palpation or probing. ??No malodor. ??No necrosis. No??drainage. ??MMT??5 out of 5. ??Gross protective sensation diminished. RLE prior to debridement: ASSESSMENT: 1. Ulcer of foot, right, with fat layer exposed ([facility]) 2. Type 2 diabetes mellitus with diabetic polyneuropathy, with long-term current use of insulin ([facility]) No orders of the defined types were placed in this encounter. PLAN: Mr. Scott presents today for follow-up right foot ulcer. I debrided the skin and subcutaneous tissue, less than 20 cm??, with a 15 blade. This is improving in size and appearance. No signs of infection. We discussed these findings. He is going to continue with the daily dressing changes himself, with saline wet to dry packing. He knows to apply betadine around the wound if he has maceration here.He is going to continue in the walking boot and continue to limit his activities. I am going to seehim back in 2-3 weeks. He knows to call before then if any problem arise and is happy with this plan. Portions of this document have been prepared with speech recognition software or keyboard data collection associate techniques. Minor irregularities or keyboarding misprints may be present documented in this encounter Plan of Treatment Not on file documented as of this encounter Visit Diagnoses Diagnosis Ulcer of foot, right, with fat layer exposed ([facility])- Primary Type 2 diabetes mellitus with diabetic polyneuropathy, with long-term current use of insulin ([facility]) documented in this encounter Care Teams Ammonium Nitrate Crystallizer Relationship Specialty Start Date End Date Jason Batres MD [address] [place] [address] PCP - General 07/27/11 12/31/23 documented as of this encounter
--- OUTSIDE RECORDS SUMMARY | 2024-02-28 16:53 | XMS_ITS | Encounter Summary ---
Author Organization [facility] Address [address] [place] [address] Care Team Providers Care Store Sales Manager Name Role Phone Jason Batres MD Primary Care Provi margarita Reason for Visit * Reason Onset Date Comments Other 09/18/2017 Encounter Details Date Type Department Care Team (Late st Contact Info) Description 09/18/2017 Telephone [facility] Foot & Ankle Program - [place] [address] Herlinda Schuster LPN [address] [place] [address] Other Social History Tobacco Use Types Packs/Day [...] shopping? Answer Date of Assessment Author Yes 09/07/2017 11:35 EDT documented as of this encounter Mental Status * Because of a physical, mental, or emotional condition, does this person have serious difficulty concentrating, remembering, or making decisions? Answer Entry Date Author Yes 09/07/2017 11:35 EDT documented in this encounter Miscellaneous Notes * Telephone Encounter - Herlinda Schuster LPN - 09/18/2017 1356 EDT Audra from the [facility] calls to report that they haven't been able to do a home visit with Jeff for 2 weeks, although they have tried numerous times via phone calls and visits to his house. At this point she needs to close the file and is calling to report this. He is scheduled to follow up in the office on 09/21/17. This office has had difficulty reaching him as well with multiple phone attempts. Herlinda Schuster LPN documented in this encounter Plan of Treatment Not on file documented as of this encounter Visit Diagnoses Not on filedocumented in this encounter Care Teams Store Sales Manager Relationship Specialty Start Date End Date Jason Batres MD [address] [place] [id number] PCP - General 07/27/11 12/31/23 documented as of this encounter
--- OUTSIDE RECORDS SUMMARY | 2024-02-28 16:53 | XMS_ITS | Encounter Summary ---
Author Organization [facility] Address [address] [place] [address] Care Team Providers Care Special Delivery Carrier Name Role Phone Jason Batres MD Primary Care Provi margarita Reason for Visit * Reason Comments Follow-up Right foot check Encounter Details Date Type Department Care Team (Late st Contact Info) Description 12/05/2017 11:00 EDT Office Visit [facility] Foot & Ankle Program - [address] [address] Angelina Gonzales, [facility] [address] [place] [address] Ulcer of foot, right, with fat layer exposed ([facility]) (Primary Dx); Type 2 diabetes mellitus with diabetic polyneuropathy, with long-term current use of insulin ([facility]) Social History Tobacco Use Types Packs/Day Years [...] - Inhaled Oxygen Concentration - - Weight 126.1 kg (278 lb) 12/05/2017 1047 EDT Height 188 cm (6' 2) 12/05/2017 1047 EDT Body Mass Index 35.69 12/05/2017 1047 EDT documented in this encounter [...] Progress Notes * Angelina Gonzales DPM - 12/05/2017 1100 EDT Images from the original note were not included. Jeff Scott is a very pleasant 56 y.o. male patient who presents for follow up right foot ulcer. He reports that he has been doing well. He has not had any pain in the foot. He believes the wound is getting smaller. He has forgotten to apply a dressing to the foot a few times since I last saw him, but otherwise has been doing the dressings as instructed. He has been wearing a walking boot most of the time. The new boot is comfortable. Overall he is feeling well today and denies any nausea, vomiting, fever, chills. Patient Active Problem List Diagnosis Date Noted ??? Acute osteomyelitis of phalanx of foot ([facility]) 03/23/2016 Priority: Medium ??? Hypothyroidism 01/22/2013 Priority: Medium ??? Osteoarthritis of left hip 07/06/2014 ??? 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 Arthritis ??? Back pain ??? Diabetes mellitus ([facility]) ??? Hypothyroidism ??? Wears [...] (FREESTYLE TEST) test strips 1 Strip by [facility] (non-drug; combo route) route 2 times daily [...] is 188 cm (74) and weight is 126.1 kg (278 lb) (abnormal). PHYSICAL EXAM: General: AO x 3, NAD Lower extremity:??RLE: Palpable pedal pulses. ??Skin temperature gradient within normal limits. ??Capillary filling time less than 3 seconds to all toes. ??Status post right partial second toe amputation. ??Well-healed. Ulcer plantar forefoot submetatarsal head 2. ??Measures 5 x 3 mm.??Surrounding hyperkeratotic tissue- mild.. Mild maceration renan wound- improved.??Granular wound base. ??No probeto bone. ??No surrounding erythema or edema. ??No pain on palpation or probing. ??No malodor. ??No necrosis. No??drainage. ??MMT??5 out of 5. ??Gross protective sensation diminished. Right foot after debridement: ASSESSMENT: 1. Ulcer of foot, right, with fat layer exposed ([facility]) 2. Type 2 diabetes mellitus with diabetic polyneuropathy, with long-term current use of insulin ([facility]) No orders of the defined types were placed in this encounter. PLAN: Mr. Scott presents today for follow-up chronic foot ulcer right foot submetatarsal head 2. I debrided this today, skin and subcutaneous tissue, less than 20 cm??. It is slowly improving in size and appearance. No signs of infection today. We discussed these findings. He is going to continue with the daily dressing changes. He is going to continue on the offloading boot. We discussed the importance of limiting his activity and of wearing the boot at all times when he is walking or standing. I amgoing to see him back in 2-3 weeks. He knows to call before then if any problems arise and is happywith this plan. Portions of this document have been prepared with speech recognition software or keyboard datapower developer techniques. Minor irregularities or keyboarding misprints may be present documented in this encounter Plan of Treatment Not on file documented as of this encounter Visit Diagnoses Diagnosis Ulcer of foot, right, with fat layer exposed ([facility])- Primary Type 2 diabetes mellitus with diabetic polyneuropathy, with long-term current use of insulin ([facility]) documented in this encounter Care Teams Special Delivery Carrier Relationship Specialty Start Date End Date Jason Batres MD [address] [place] [id number] PCP - General 07/27/11 12/31/23 documented as of this encounter
--- OUTSIDE RECORDS SUMMARY | 2024-02-28 16:53 | XMS_ITS | Encounter Summary ---
Author Organization [facility] Address [address] [place] [address] Care Team Providers Care Business Info Consultant Name Role Phone Jason Batres MD Primary Care Provi margarita Reason for Visit * Reason Comments Foot Problem right foot check Encounter Details Date Type Department Care Team (Late st Contact Info) Description 10/11/2017 9:30 EDT Office Visit [facility] Foot & Ankle Program - [address] [address] Angelina Gonzales, [facility] [address] [place] [address] Ulcer of foot, right, with fat layer exposed ([facility]) (Primary Dx); Type 2 diabetes mellitus with diabetic polyneuropathy, with long-term current use of insulin ([facility]) Social History Tobacco Use Types Packs/Day Years [...] - - Weight 124.3 kg (274 lb) 10/11/2017 09 EDT Height 188 cm (6' 2) 10/11/2017 09 EDT Body Mass Index 35.18 10/11/2017937 EDT documented in this encounter Functional Status [...] 10/11/2017 9:40 EDT documented in this encounter Progress Notes * Angelina Gonzales DPCarol - 10/11/2017 0930 EDT Jeff Scott is a very pleasant 56 y.o. male patient who presents for follow up right foot ulcer. He reports that he forgot about his last appointment. 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 He has been very active on the foot. He does state that he has been wearing the boot for this, however. He has been throwing a lot of hay and has been building miles of fences. He has been changing the dressing himself at home. He has had some increased soreness in the foot. He denies any nausea, vomiting,fever, chills. He denies any redness or swelling to the foot, or any drainage from the wound. Overall he is feeling well and denies any nausea, vomiting, fever, chills. Patient Active Problem List Diagnosis Date Noted ??? Acute osteomyelitis of phalanx of foot ([facility]) 03/23/2016 Priority: Medium ??? Hypothyroidism 01/22/2013 Priority: Medium ??? Osteoarthritis of left hip 07/06/2014 ??? 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 Arthritis ??? Back pain ??? Diabetes mellitus ([facility]) ??? Hypothyroidism ??? Wears glasses Past Surgical [...] 2. ??Picture as below. ??Surrounding hyperkeratotic tissue- moderate. Mild maceration renan wound. Granular wound base. ??No probe to bone.. ??No surrounding erythema or edema. ??No pain on palpation or probing. ??No malodor. ??No necrosis. No??drainage. ??MMT??5 out of 5. ??Gross protective sensation diminished. Right foot ulcer after debridement: ASSESSMENT: 1. Ulcer of foot, right, with fat layer exposed ([facility]) GENERIC ORTHO VENDOR DME CANCELED: GENERIC ORTHO VENDOR DME 2. Type 2 diabetes mellitus with diabetic polyneuropathy, with long-term current use of insulin ([facility]) GENERIC ORTHO VENDOR DME CANCELED: GENERIC ORTHO VENDOR DME Other Orders Placed This Visit Procedures ??? Generic Ortho Vendor DME PLAN: Mr. Scott presents today for follow-up right foot ulcer, chronic. I debrided the wound for him today, skin and subcutaneous tissue, less than 20 cm??. It has worsened in size and is larger since I last saw him. It is also slightly deeper. It does not probe to bone and there are no signs of infection today. We discussed these findings. 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 We had a long discussion about this today including risks of continued worsening of the wound including possible bone infection and need for further surgery. I advised him to take some time off of work to allow this to heal. He feels comfortable doing this and is going to notify the farm today. He is goingto get fitted for a new offloading insole for his boot, as his current insole is very worn out. He is going to continue with daily dressing changes with wet to dry. I am going see him back in 2 weeks. He knows to call before then if any problems arise and is happy with this plan. Portions of this document have been prepared with speech recognition software or keyboard data integrity specialist techniques. Minor irregularities or keyboarding misprints may be present documented in this encounter Plan of Treatment Not on file documented as of this encounter Visit Diagnoses Diagnosis Ulcer of foot, right, with fat layer exposed ([facility])- Primary Type 2 diabetes mellitus with diabetic polyneuropathy, with long-term current use of insulin ([facility]) documented in this encounter Orders Equipment Count Last Ordered Date First Orde red Date GENERIC ORTHO VENDOR DME 1 10/11/2017 documented in this encounter Care Teams Business Info Consultant Relationship Specialty Start Date End Date Jason Batres MD [address] [place] [address] PCP - General 07/27/11 12/31/23 documented as of this encounter
--- OUTSIDE RECORDS SUMMARY | 2024-02-28 16:53 | XMS_ITS | Encounter Summary ---
Author Organization [facility] Address [address] [place] [address] Care Team Providers Care Wirer Name Role Phone Jason Batres MD Primary Care Provi margarita Encounter Details Date Type Department Care Team (Late st Contact Info) Description 04/26/2017 Community Health Team Jason Batres MD, PC [address] [place], [place] [id number] Yael Blackburn, RD [address] [place] [address] Social History Tobacco Use Types [...] Progress Notes * Yael Blackburn, KAUSHAL - 04/26/2017 9228 EST Images from the original note were not included. [facility] Team Furnace Combustion Analyst Follow-up Visit Name:Jeff Scott Today's Date: 04/27/2017 Date of visit: 04/26/2017 SUBJECTIVE: Jeff Scott is a 56 y.o. male initially referred to the [facility] Team for diabetes self-management education by Dr. Batres. Jeff was last seen on 04/03/17 and returns today for a follow-up CHT CDE visit at [address], [place] accompanied by alone. This is the eleventh encounter. OBJECTIVE: Diabetes type: Type 2 Vitals: There [...] TWICEDAILY (500 mg tab) CURRENT INSULIN PROGRAM: Exenatide 2 mg weekly is currently remembering all doses on the correct day INJECTIONS: Injection Technique: Patients reports: no problems with shots Site Selection: Patient is choosing appropriate sites. Patient is rotating: appropriate Patient is discarding sharps: Safely DIABETES MEAL PLANNING: Type of meal planning: Consistent Carbohydrate and has been drinking 1-2 sodas daily Carbohydrate targets: 45 gm/meal Follows meal plan: 50% to 75% of the time PRESENT MEAL PATTERN: Comments: Pt states that he continues to eat 3 meals/day with breakfast and dinner being the easiest for him if he does skip a meal it is generally lunch. Pt is drinking 1-2 sodas daily PHYSICAL ACTIVITY: Type of exercise: pt is working 2 jobs at [employer] active at work but no structured exercise Frequency per week: daily Duration in minutes: At least 60 minutes BLOOD GLUCOSE MONITORING: Glucose monitoring: BID. With meter: One touch Barriers to monitoring: None Home Blood Glucoses Running: HYPOGLYCEMIA MANAGEMENT: Hypoglycemic event: none reported Patient is carrying a source of rapid acting CHO: none Patient has a current supply of glucagon? No Patient is wearing Medic Alert: No STRESS MANAGEMENT/COPING SKILLS: Pt reports appropriate stress management/coping skills. ASSESSMENT: Jeff was seen for follow up diabetes self management and medical nutrition therapy. Pt continues to work towards eating 3 balanced meals daily and has made progress with this by including more vegetables. Jeff was able to adjust storage location of medications to improve frequency of taking it ontime. Review of blood glucose indicates fasting blood glucose consistently greater than 130. DIABETES SELF-MANAGEMENT EDUCATION: Engaged pt in conversation related to positive behavior change, self-management, goal setting and action planning using motivational interviewing and active listening. During this session we addressed the following topics: Reviewed dietary intake and physical activity. Reviewed relationship between meal composition (highcarbohydrate vs balanced), blood glucose levels, nutrient metabolism and storage. Encouraged decrease in consumption of high carbohydrate beverages and provided pt with alternative ideas. Educational materials provided:none Method: verbal Taught to: Patient Barriers to education: no barriers Psychosocial, cultural, or economic barriers to care:none. Outcomes: Pt verbalized understanding Stage of Change: Action DIABETES SELF-MANAGEMENT RECOMMENDATIONS: Decrease intake of soda to no more than 2 each week PATIENT IDENTIFIED GOALS: Cut back on soda PATIENT'S PLAN: Follow up in 1 month ADDITIONAL INFORMATION FOR PROVIDER: please see blood glucose log above. Current Visit Location: Dr. Batres Total Time: 60 minutes in person, 15 minutes charting Referral: none Follow up: Date: May Time: 8:30 AM With: Linda Dudley Dietitian Location: [address], [place] Status: Active Yael Blackburn RD 04/27/2017 12:09 documented in this encounter Plan of Treatment Not on file documented as of this encounter Visit Diagnoses Not on filedocumented in this encounter Care Teams Wirer Relationship Specialty Start Date End Date Jason Batres MD [address] [address] PCP - General 07/27/11 12/31/23 documented as of this encounter
--- OUTSIDE RECORDS SUMMARY | 2024-02-28 16:53 | XMS_ITS | Encounter Summary ---
Author Organization [facility] Address [address] [place] [address] Care Team Providers Care Back Sewer Name Role Phone Jason Batres MD Primary Care Provi margarita Reason for Visit * Reason Comments Follow-up Right foot check Encounter Details Date Type Department Care Team (Late st Contact Info) Description 07/26/2017 12:15 EDT Office Visit [facility] Foot & Ankle Program - [address] [address] Angelina Gonzales, [facility] [address] [place] [address] Ulcer of foot, right, with fat layer exposed ([facility]) (Primary Dx); Type 2 diabetes mellitus with diabetic polyneuropathy, with long-term current use of insulin ([facility]) Social History Tobacco Use Types Packs/Day Years Used Date Smoking Tobacco: Never Smokeless Tobacco: Former Chew Tobacco Cessation:Counseling Given: No Alcohol Use Standard Drinks/Week Comments No 0 [...] - Inhaled Oxygen Concentration - - Weight 121.6 kg (268 lb) 07/26/2017 1218 EDT Height 157.5 cm (5' 2) 07/26/2017 1218 EDT Body Mass Index 49.02 07/26/2017 1218 EDT documented in this encounter Functional Status [...] 07/26/2017 12:18 EDT documented in this encounter Progress Notes * Angelina Gonzales DPM - 07/26/2017 1215 EDT Images from the original note were not included. Jeff Scott is a very pleasant 56 y.o. male patient who presents for follow up right foot ulcer. He reports that he has been doing well. He has been having the dressing changed daily. He has been wearing the walking boot most of the time. He removes it occasionally. He has been taking the antibiotics as prescribed- Augmentin. Overall he is feeling well and denies any nausea, vomiting, fever, chills. Patient Active Problem List Diagnosis Date Noted ??? Acute osteomyelitis of phalanx of foot ([facility]) 03/23/2016 Priority: Medium ??? Hypothyroidism 01/22/2013 Priority: Medium ??? Osteoarthritis of left hip 07/06/2014 ??? 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 Arthritis ??? Back pain ??? Diabetes mellitus ([facility]) ??? Hypothyroidism ??? Wears glasses Past [...] Outpatient Prescriptions Medication Sig Dispense Refill ??? amoxicillin-clavulanate (AUGMENTIN) 875-125 mg per tablet Take 1 Tab by mouth every 12 hours for 10 days. 20 Tab 0 ??? blood glucose (FREESTYLE TEST) test [...] Take 800 mg by mouth daily. ??? INSULIN GLARGINE,HUM.REC.ANLOG (INSULIN GLARGINE, CAROLEAGLJAGRUTI PELAEZ,) 100 unit/mL (3 mL) injection pen Inject 25 Units into the skin at bedtime. (Patient taking differently: Inject 25 Units into the skin every morning. ) 35 mL 3 ??? insulin pen needles 31G [...] others are negative. Vital signs: height is 157.5 cm (62) and weight is 121.6 kg (268 lb) (abnormal). PHYSICAL EXAM: General: AO x 3, NAD Lower extremity: RLE: Palpable pedal pulses. Skin temperature gradient within normal limits. Capillary filling time less than 3 seconds all toes. Status post right second toe amputation. Well-healed. Ulcer plantar forefoot submetatarsal head 2. Picture as below. Surrounding hyperkeratotic and macerated tissue. Granular wound base. Probes deep but not to bone. No surrounding erythema or edema. No pain on palpation or probing. No malodor. No necrosis. No drainage. Manual muscle testing 5 out of 5. Gross protective sensation diminished. ?? Right foot after debridement: ASSESSMENT: 1. Ulcer of foot, right, with fat layer exposed (HCC-CMS) 2. Type 2 diabetes mellitus with diabetic polyneuropathy, with long-term current use of insulin ([facility]) No orders of the defined types were placed in this encounter. PLAN: Mr. Scott presents today for follow-up right foot ulcer submetatarsal head 2. I debrided the ulcer today, skin and subcutaneous tissue, with a 15 blade, < 20 cm2. Drainage and malodor have resolved. Ulcer has not really changed much in size. Surrounding skin is slightly macerated today and thereis some new callus buildup. We discussed these findings. He is going to finish the antibiotics-no need for renewal. Continue with dressing changes with VNA, as below. We discussed the importance of having VNA see him on a regular basis to assist with this and to monitor the area for any signs of infection. Continue in the walking boot. We discussed the importance of him wearing this while walkingand standing, and of limiting his activity while this ulcer heals. I am going to have him see my colleague, Dr. Betancourt, for follow up next week while I am out of the office, then I will see him back the following week. He knows to call with any questions and is happy with this plan. Instructions for VNA: Please change dressing to right foot daily. Pack wound with a saline wet-to-dry packing. Prior to applying this, paint periphery of wound with Betadine to dry out the macerated tissue. Apply dry sterile gauze dressing. Apply a light KACEY bandage. He is limited weightbearing in the offloading walkingboot. He has a follow up appointment next week, followed by an appointment with me the following week. Portions of this document have been prepared with speech recognition software or keyboard data software engineer techniques. Minor irregularities or keyboarding misprints may be present * Herlinda Schuster LPN - 07/26/2017 1215 EDT VNA instructions called into VNA triage line. Herlinda Schuster LPN 07/26/2017 14:49 documented in this encounter Plan of Treatment Not on file documented as of this encounter Visit Diagnoses Diagnosis Ulcer of foot, right, with fat layer exposed ([facility])- Primary Type 2 diabetes mellitus with diabetic polyneuropathy, with long-term current use of insulin ([facility]) documented in this encounter Care Teams Back Sewer Relationship Specialty Start Date End Date Jason Batres MD [address] [place] [id number] PCP - General 07/27/11 12/31/23 documented as of this encounter
--- OUTSIDE RECORDS SUMMARY | 2024-02-28 16:53 | XMS_ITS | Encounter Summary ---
Author Organization [facility] Address [address] [place] [address] Care Team Providers Care Image Consultant Name Role Phone Jason Batres MD Primary Care Provi margarita Reason for Visit * Reason Comments Follow-up Right foot check Encounter Details Date Type Department Care Team (Late st Contact Info) Description 08/10/2017 15:30 EDT Office Visit [facility] Foot & Ankle Program - [address] [address] Angelina Gonzales, [facility] [address] [place] [address] Ulcer of foot, right, with fat layer exposed ([facility]) (Primary Dx); Type 2 diabetes mellitus with diabetic polyneuropathy, with long-term current use of insulin ([facility]) Social History Tobacco Use Types Packs/Day [...] - Inhaled Oxygen Concentration - - Weight 125.2 kg (276 lb) 08/10/2017 1522 EDT Height 188 cm (6' 2) 08/10/2017 1522 EDT Body Mass Index 35.44 08/10/2017 1522 EDT documented in this encounter Functional Status * Because of a physical, mental, or emotional condition, does this person have difficulty doing errands alone such as visiting a doctor's office or shopping? Answer Date of Assessment Author Yes 08/10/2017 15:22 EDT documented as of this encounter Mental Status * Because of a physical, mental, or emotional condition, does this person have serious difficulty concentrating, remembering, or making decisions? Answer Entry Date Author Yes 08/10/2017 15:22 EDT documented in this encounter Progress Notes * Angelina Gonzales DPM - 08/10/2017 1530 EDT Images from the original note were not included. Jeff Scott is a very pleasant 56 y.o. male patient who presents for follow up right foot ulcer. He reports that he has been doing well. He has been wearing the boot the majority of the time. He has been limiting his activity, but does admit to walking more some days. He has been changing the dressing to the foot daily by himself, applying wet-to-dry dressing. He reports that VNA has not come this past week. He feels comfortable doing the dressing changes. Overall he is feeling well today anddenies any nausea, vomiting, fever, chills. Patient Active Problem List Diagnosis Date Noted ??? Acute osteomyelitis of phalanx of foot ([facility]) 03/23/2016 Priority: Medium ??? Hypothyroidism 01/22/2013 Priority: Medium ??? Osteoarthritis of left hip 07/06/2014 ??? 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 Arthritis ??? Back pain ??? Diabetes mellitus ([facility]) ??? Hypothyroidism ??? Wears glasses Past [...] is 188 cm (74) and weight is 125.2 kg (276 lb) (abnormal). PHYSICAL EXAM: General: AO x 3, NAD Lower extremity:??RLE: Palpable pedal pulses. ??Skin temperature gradient within normal limits. ??Capillary filling time less than 3 seconds all toes. ??Status post right second toe amputation. ??Well-healed. Ulcer plantar forefoot submetatarsal head 2. ??Picture as below. ??Surrounding hyperkeratotic and macerated tissue. ??Granular wound base. ??Probes deep but not to bone. ??No surrounding erythema or edema. ??No pain on palpation or probing. ??No malodor. ??No necrosis. No drainage. ??MMT 5out of 5. ??Gross protective sensation diminished. ? Right foot after debridement: ASSESSMENT: 1. Ulcer of foot, right, with fat layer exposed ([facility]) 2. Type 2 diabetes mellitus with diabetic polyneuropathy, with long-term current use of insulin ([facility]) No orders of the defined types were placed in this encounter. PLAN: Mr. Scott presents today for follow-up right foot ulcer. I debrided the wound, skin and subcutaneous tissue, with a 15 blade, less than 20 cm??. This is improving in size and appearance since I last saw him. Filling in well with the wet-to-dry dressings. He is going to continue with this. Instructions for VNA below. He is going to continue in the walking boot. We discussed importance of limiting his activity. Discussed importance of elevating the foot. I am going to see him back in 10 days. He knows to call before then if any prongs arise and is happy with this plan. Instructions for VNA: Please change dressing to right foot daily. Ok to have Mr. Scott do this himself every other day. Pack wound with a saline wet-to-dry packing. Prior to applying this, paint periphery of wound with Betadine to dry out the macerated tissue. Apply dry sterile gauze dressing. Apply a light KACEY bandage.He is limited weightbearing in the offloading walking boot. He has a follow up appointment with me again on 08/20. ?? Portions of this document have been prepared with speech recognition software or keyboard datawarehouse developer techniques. Minor irregularities or keyboarding misprints may be present * Herlinda Schuster LPN - 08/10/2017 1530 EDT Call to VNA triage line with wound care instructions. Message left for Jorge. Herlinda Schuster LPN documented in this encounter Plan of Treatment Not on file documented as of this encounter Visit Diagnoses Diagnosis Ulcer of foot, right, with fat layer exposed (HCC-CMS)- Primary Type 2 diabetes mellitus with diabetic polyneuropathy, with long-term current use of insulin ([facility]) documented in this encounter Care Teams Image Consultant Relationship Specialty Start Date End Date Jason Batres MD [address] [place] [id number] PCP - General 07/27/11 12/31/23 documented as of this encounter
--- OUTSIDE RECORDS SUMMARY | 2024-02-28 16:53 | XMS_ITS | Encounter Summary ---
Author Organization [facility] Address [address] [place] [address] Care Team Providers Care Communication Skills Instructor Name Role Phone Jason Batres MD Primary Care Provi margarita Encounter Details Date Type Department Care Team (Late st Contact Info) Description 11/26/2017 Community Health Team Jason Batres MD, PC [address] [place], [place] [id number] Yael Blackburn, RD [address] [place] [address] Social History Tobacco Use Types [...] in this encounter Progress Notes * Yael Baron RD CDE - 11/26/2017 0851 EDT Community Health Team Registered Dietitian Encounter Date of encounter: 11/26/2017 Jeff Castillo Tyler was not able to make today's visit w/ CHT RD. KAUSHAL called and left message to reschedule; provided direct contact information for T Admin Team. Dr. Batres Total Time: 5 minutes Referral: none Follow up: Jeff Scott was not able to make today's visit w/ CHT RD. CHT Admin Team please contact to reschedule. Thank you Status: Active Thank you for this referral. KARIME Dudley, KAUSHAL, CD Clinical Dietitian, T documented in this encounter Plan of Treatment Not on file documented as of this encounter Visit Diagnoses Not on filedocumented in this encounter Care Teams Communication Skills Instructor Relationship Specialty Start Date End Date Jason Batres MD [address] [place] [address] PCP - General 07/27/11 12/31/23 documented as of this encounter
--- OUTSIDE RECORDS SUMMARY | 2024-02-28 16:53 | XMS_ITS | Encounter Summary ---
Author Organization [facility] Address [address] [place] [address] Care Team Providers Care Toxics Program Officer Name Role Phone Jason Batres MD Primary Care Provi margarita Reason for Visit * Reason Comments Diabetes 3 month follow up Encounter Details Date Type Department Care Team (Late st Contact Info) Description 08/09/2017 9:00 EDT Office Visit Jason Batres MD, [facility] [address] [place], [place] [phone] Jason Batres MD [address] [place] [address] Type 2 diabetes mellitus without complication, with long-term current use of insulin ([facility]) (Primary Dx) Social History Tobacco [...] Sign Reading Time Taken Comments Blood Pressure 122/76 08/09/2017 0851 EDT Pulse 90 08/09/2017 0851 EDT Temperature 36.9 ??C (98.5 ??F) 08/09/2017 0851 EDT Respiratory Rate - - Oxygen Saturation 97% 08/09/2017 0851 EDT Inhaled Oxygen Concentration - - Weight 125.2 kg (276 lb) 08/09/2017 0851 EDT Height - - Body Mass Index 35.44 08/03/2017 0809 EDT documented in this encounter Functional Status * Because of a physical, mental, or emotional condition, does this person have difficulty doing errands alone such as visiting a doctor's office or shopping? Answer Date of Assessment Author Yes 08/03/2017 8:09 EDT documented as of this encounter Mental Status * Because of a physical, mental, or emotional condition, does this person have serious difficulty concentrating, remembering, or making decisions? Answer Entry Date Author Yes 08/03/2017 8:09 EDT documented in this encounter Patient Instructions * Patient Instructions* Jason Batres MD - 08/09/2017 9:00 EDT 1. Take the finger sticks from the finger. It can be the side of the finger, not the pad 2.Make sure you are taking the lantus EVERY DAY, even if it I later in the evening. 3. NO SUGAR SODA documented in this encounter Progress Notes * Jason Batres MD - 08/09/2017 0900 EDT Subjective: Patient ID: Jeff Scott is an 56 y.o. male. Chief Complaint Patient presents with ??? Diabetes 3 month follow up Diabetes Pertinent negatives for diabetes include no chest pain. Jeff is here for a diabetic follow-up. He continues to see endocrinology and is now on weekly Bydureon as well as daily Basaglar. The long acting insulin has been increased from 25 units to 35 units. He says he never misses the Bydureon. He misses the Basaglar very rarely. More often he will forget it at dinner but then remember to take it before bed. He says his FS are now running under 200, around 180. He is surprised that an A1C over 12 (where he has been recently) corresponds to FS up around 300 as he says his highs have been 220 even if he takes his FS before supper. I did review a note from his that given Jeff's brain surgery, he forgets and needs to be toldexactly what to do, that he cannot be given too many choices. He did discuss this with Yael Caldwell RD and is now working on a more strict meal plan, although he has some choices. He does feel he can follow this. He says he is drinking less soda and he would only drink diet. He cut from two eggs and two toast to just one piece of bread. He is working on this. He also sees endocrinology back in September. We also reviewed his recent diabetic foot ulcer. He said he felt something for about a month but did not realize how bad it was and it was hoping it would go away. He then saw Dr. Gonzales and has been seeing podiatry monthly and VNA is also following this. He is in a walking boot an it is getting better and he is not on antibiotics. He is not working right now and is happy to hear that he will be ab le to get his job back. Social Current Outpatient Prescriptions on File Prior [...] mouth daily. ??? INSULIN GLARGINE,HUM.REC.ANLOG (INSULIN GLARGINE, BASAGLJAGRUTI PELAEZ,) 100 unit/mL (3 mL) injection pen [...] chest pain. - See HPI Objective: BP 122/76 Pulse 90 Temp 36.9 ??C (98.5 ??F) (Tympanic) Wt (!) 125.2 kg (276 lb) SpO2 97% BMI 35.44 kg/m2 Physical Exam Constitutional: He is oriented [...] his diabetes and diet changes His A1C has been over 12, but he is now on basal insulin and Bydureon and I am hopeful that this will help I stressed the importance of taking his medication. He also was given more of a strict diet plan which his thinks will help him. She sent a note that he does not do well when family reminds him of things and so I will continue to do so. Continue to follow-up with endocrinology as well. 2. Diabetic foot ulcer Continue with care as per podiatry and we talked about checking his foot daily. follow up here in two months Jason Batres MD documented in this encounter Plan of Treatment Not on file documented as of this encounter Visit Diagnoses Diagnosis Type 2 diabetes mellitus without complication, with long-term current use of insulin ([facility])- Primary documented in this encounter Care Teams Toxics Program Officer Relationship Specialty Start Date End Date Jason Batres MD [address] [place] [id number] PCP - General 07/27/11 12/31/23 documented as of this encounter
--- OUTSIDE RECORDS SUMMARY | 2024-02-28 16:53 | XMS_ITS | Encounter Summary ---
Author Organization [facility] Address [address] [place] [address] Care Team Providers Care Ticket Counter Name Role Phone Jason Batres MD Primary Care Provi margarita Reason for Visit * Reason Onset Date Comments Appointment Related 09/10/2017 Encounter Details Date Type Department Care Team (Late st Contact Info) Description 09/10/2017 Telephone [facility] Foot & Ankle Program - [address] [address] Angelina Gonzales, [facility] [address] [place] [address] Appointment Related Social History Tobacco [...] Telephone Encounter - Angelina Gonzales DPM - 09/10/2017 1231 EDT Left a message for Jeff to reschedule the appointment he missed this morning. I'd like to see him this week or next to evaluate his wound. I left him Marjorie Florian's number to call back to reschedule. documented in this encounter Plan of Treatment Not on file documented as of this encounter Visit Diagnoses Not on filedocumented in this encounter Care Teams Ticket Counter Relationship Specialty Start Date End Date Jason Batres MD [address] [place] [address] PCP - General 07/27/11 12/31/23 documented as of this encounter
--- OUTSIDE RECORDS SUMMARY | 2024-02-28 16:53 | XMS_ITS | Encounter Summary ---
Author Organization [facility] Address [address] [place] [address] Care Team Providers Care Pc Network Technician Name Role Phone Jason Batres MD Primary Care Provi margarita Reason for Visit * Reason Comments Follow-up Right foot 2nd toe c heck Encounter Details Date Type Department Care Team (Late st Contact Info) Description 07/20/2017 8:[address] [facility] - [address] [address] Angelina Gonzales, [facility] [address] [place] [address] Ulcer of foot, right, with fat layer exposed ([facility]) (Primary Dx); Type 2 diabetes mellitus with diabetic polyneuropathy, with long-term current use of insulin ([facility]) Discharge Disposition: Auto Discharge Social History [...] - Inhaled Oxygen Concentration - - Weight 120.2 kg (265 lb) 07/20/2017 0856 EDT Height 157.5 cm (5' 2) 07/20/2017 0856 EDT Body Mass Index 48.47 07/20/2017 0856 EDT documented in this encounter Functional Status [...] 07/20/2017 8:57 EDT documented in this encounter Discharge Diagnoses Diagnosis L97.512 Non-pressure chronic ulcer of other part of right foot with fat layer exposed-L97.512[ICD-10-CM] documented in this encounter Ordered Prescriptions Prescription Sig Dispense Quantity Refills Last Filled Start Date End Date amoxicillin-clavula cuba (AUGMENTIN) 875-125 mg per tablet Take 1 Tab by mouth every 12 hours for 10 days. 20 Tab 07/20/2017 07/30/2017 documented in this encounter Discharge Disposition Disposition Code Departure Means Destination Auto Discharge documented in this encounter Progress Notes * Angelina Gonzales DPM - 07/20/2017 0830 EDT Images from the original note were not included. Jeff Scott is a very pleasant 56 y.o. male patient who presents for follow up diabetic foot evaluation and care. He reports that he has been doing well. He has not had any pain in the feet. He does report that he has had some soreness on his right foot. About a month ago he noticed that he had something going on here and was worried he stepped on something. He picked at it and tried to get outwhat he thought was a splinter. He has been keeping the area clean by doing Epsom salts soaks. 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 He denies any pain in the new area on his right foot. He denies any nausea, vomiting, fever, chills. He does report that he has trouble seeing the bottom of the foot. Patient Active Problem List Diagnosis Date Noted ??? Acute osteomyelitis of phalanx of foot ([facility]) 03/23/2016 Priority: Medium ??? Hypothyroidism 01/22/2013 Priority: Medium ??? Osteoarthritis of left hip 07/06/2014 ??? 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 Arthritis ??? Back pain ??? Diabetes mellitus ([facility]) ??? Hypothyroidism ??? Wears glasses [...] mouth daily. ??? INSULIN GLARGINE,HUM.REC.ANLOG (INSULIN GLARGINE, BASAGLAR KWIKPEN,) 100 unit/mL (3 mL) injection pen Inject 25 Units into the skin at bedtime. 35 mL 3 ??? insulin pen needles [...] is 157.5 cm (62) and weight is 120.2 kg (265 lb) (abnormal). PHYSICAL EXAM: General: AO x 3, NAD Lower extremity: RLE: Palpable pedal pulses. Skin temperature gradient within normal limits. Capillary filling time less than 3 seconds all toes. Status post right second toe amputation. Well-healed. Ulcer plantar forefoot submetatarsal head 2. Picture as below. Surrounding hyperkeratotic tissue. Granular wound base. Probes deep but not to bone. No surrounding erythema or edema. No pain on palpation or probing. No malodor. No necrosis. Mild serous drainage. Manual muscle testing 5 out of 5. Gross protective sensation diminished. LLE: No open lesions or pre ulcerative lesions ASSESSMENT: 1. Ulcer of foot, right, with fat layer exposed ([facility]) 2. Type 2 diabetes mellitus with diabetic polyneuropathy, with long-term current use of insulin ([facility]) No orders of the defined types were placed in this encounter. PLAN: Mr. Scott presents today for scheduled follow-up routine diabetic foot evaluation and care. On examtoday, he has a new large ulcer on his right foot. After questioning, this has been present for about a month. He has been soaking and doing some dressing changes here. I debrided the wound, skin andsubcutaneous tissue, less than 20 cm??, with a tissue nipper. I took some cultures of the tissue today and these were sent to microbiology. Wound probes deep but not to bone. No acute signs of infection today. 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 Augmentin 875/125 mg twice a dayfor 10 days. He is going to pick this up today. I will call him on Sunday if I need to change according to his culture results. We are going to set him up with visiting nursing to help with dressing changes. He has difficulty seeing the bottom of the foot, and due to his traumatic brain injury and neuropathy, has had trouble with dressing changes before. We discussed that he is at high risk of infection and amputation given his history. Due to this, snf will be required for dressingchanges. 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 He is going to get fitted for diabetic offloading boot today. He is to wear this at all times while standing and walking. He is to limit his activity. I am going to see him back in 1 week. He knows to call before then if any problem arises-reviewed signs of infection-and is happy with this plan. Instructions for [facility]: Change dressing to right foot sub metatarsal head 2 wound daily. Pack with a saline wet-to-dry gauze dressing. Cover foot with gauze dressing. Okay to cleanse wound with saline prior to dressing changes. He is limited weightbearing in a diabetic offloading boot. He has follow-up with me again next week. He is starting antibiotics today. Portions of this document have been prepared with speech recognition software or keyboard database consultant techniques. Minor irregularities or keyboarding misprints may be present * Herlinda Schuster LPN - 07/20/2017 0830 EDT Face to face encounter sent to [facility]. Herlinda Schuster LPN documented in this encounter Plan of Treatment Not on file documented as of this encounter Results * BACTERIAL CULTURE/SMEAR, TISSUE (07/20/2017 9:37 EDT) Gram Smear Result Few Polys 07/20/2017 17:12 EDT [facility] Gram Smear Result Many Mixed gram positive and gram negative organisms 07/20/2017 17:12 EDT [facility] Result Mod Mixed gram positive and gram negative organisms 07/22/2017 15:03 EDT [facility] Result Smear suggests minimal or no inflammation. 07/22/2017 15:03 EDT [facility] Specimen of unknown material (specimen) TISSUE SPECIMEN / Unknown 07/20/2017 9:37 EDT 07/20/2017 16:22 EDT Comment:right foot ulcer sof t tissue us Angelina Gonzales DPM MICROBIOLOGY - GENERAL ORDERABL ES Final Result [facility] [address] [place] [address] documented in this encounter Visit Diagnoses Diagnosis Ulcer of foot, right, with fat layer exposed ([facility] Primary Type 2 diabetes mellitus with diabetic polyneuropathy, with long-term current use of insulin ([facility]) documented in this encounter Orders Equipment Count Last Ordered Date First Orde red Date GENERIC [employer]THO VENDOR DME 1 07/20/2017 documented in this encounter Care Teams Pc Network Technician Relationship Specialty Start Date End Date Jason Batres MD [address] [place] [address] PCP - General 07/27/11 12/31/23 documented as of this encounter
--- OUTSIDE RECORDS SUMMARY | 2024-02-28 16:53 | XMS_ITS | Encounter Summary ---
Author Organization [facility] Address [address] [place] [address] Care Team Providers Care Wildlife Biostation Research Ecologist Name Role Phone Jason Batres MD Primary Care Provi margarita Reason for Visit * Reason Comments Diabetes Encounter Details Date Type Department Care Team (Late st Contact Info) Description 11/15/2017 [facility] Team [address] [address] Yael Blackburn, RD [address] [place] [address] Social History Tobacco Use Types [...] encounter Patient Instructions * Patient Instructions* Yael Baron RD CDE - 11/15/2017 10:17 EDT Images from the original note were not included. Tips on Injecting Insulin You may use [...] injections and another for your evening injection ??? documented in this encounter Progress Notes * Alexey Ramirez, KAUSHAL Conley CDE - 11/15/2017 1017 EDT [facility] Team Park Ranger Follow-up Visit Name:Jeff Scott Today's Date: 11/15/2017 Date of visit: 11/15/2017 SUBJECTIVE: Jeff Scott is a 56 y.o. male initially referred to the [facility] Team for diabetes self-management education by No ref. provider found. Jeff was last seen on 10/19/17 and returns today for a follow-up CHT CDE visit at [facility], [address] [place] [address]. [phone], [place] accompanied by alone. This is the fifteenth encounter. OBJECTIVE: Diabetes type: Type 2 Vitals: There were no vitals taken for this visit. BMI: There is no height or weight on file to calculate BMI. LABORATORY RESULTS: A1c: Lab Results Component Value Date HGBA1C 13.4 (H) 11/14/2017 HGBA1C 12.1 (H) 09/07/2017 HGBA1C 12.0 (H) 07/25/2017 DIABETES MEDICATIONS: Current AntiDiabetic Medications 09/07/2017 11/14/2017 insulin glargine (BASAGLAR KWIKPEN) (subcutaneous) 55 Units QHS 70 Units QHS exenatide microspheres (subcutaneous) 2 MG WEEKLY (2 mg/0.65 mL pnij) 2 MG WEEKLY (2 mg/0.65 mL pnij) dulaglutide (subcutaneous) - - albiglutide (subcutaneous) - - sitaGLIPtin (oral) - - glimepiride (oral) 4 MG BID 4 MG BID metFORMIN (oral) 1,000 MG BID (BREAKFAST/DINNER) 1,000 MG BID (BREAKFAST/DINNER) CURRENT INSULIN PROGRAM: Will start 70 units basaglar today INJECTIONS: Patient reports that: Basal: All Other injectables: Often forgets bydureon Injection Technique: Patients reports: pt reports injecting in the forearm and just above the knee Site Selection: Patient is choosing appropriate sites: Reviewed sites Patient is rotating: inappropriate Patient is discarding sharps: Safely DIABETES MEAL PLANNING: Type of meal planning: Consistent Carbohydrate Carbohydrate targets: 3 balanced meals/day Follows meal plan: Less than 25% of the time PRESENT MEAL PATTERN: Comments: Pt skips lunch most days and 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 Pt is drinking at least 1 20 ounce soda daily. 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 With meter: One touch Barriers to monitoring: None Home Blood Glucoses Running: BGs are not consistent with Hgb A1C. HYPOGLYCEMIA MANAGEMENT: Hypoglycemic event: none reported Patient is carrying a source of rapid acting CHO: none Patient has a current supply of glucagon? No Patient is wearing Medic Alert: No STRESS MANAGEMENT/COPING SKILLS: Pt reports appropriate stress management/coping skills. ASSESSMENT: Jeff was seen for f/u medical nutrition therapy for type 2 diabetes. Nutrition Diagnosis: altered nutrition related lab (a1c 13.4) Etiology: type 2 diabetes, imbalanced nutrition, predicted excess energy and carbohydrate intake, physical inactivity. Signs & Symptoms: per pt report has not taken bydureon in 2 weeks but is taking all other medications. Pt notes not many changes to diet, continues to skip lunch most days but will rather snack on peanut butter or cheese crackers. Per report is drinking regular soda daily. Most recent a1c was 13.4 which is not consistent with reported home blood glucose results. Questioning accuracy of meter Fátima Marie has ordered a new one. Per pt report has been taking most medications but admits to forgetting bydureon for 2 weeks, noting that its harder to remember because it is kept upstairs in the refrigerator away from other medications. Pt reviewed current injections sites including forearm andtop of thigh just above the knee. 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 Pt notes limited physical activity outside of work. Intervention: MNT/Education: Engaged patient in conversation related to positive behavior change, self-management, goal setting and action planning using motivational interviewing and active listening. - Reviewed dietary intake and physical activity. - Reviewed blood glucose measurements, including HgA1C and FBG. - Reviewed appropriate injection sites and provided pt with handout showing the areas - Reviewed methods to improve adherence to medications - Discussed the role of physical activity in assisting pt to achieve improved glycemic control and weight loss - - Reviewed food sources of carbohydrate (starch vs non-starch; refined vs whole grain; added sugar), carbohydrate counting, and low carbohydrate snacks. - Provided MNT for diabetes including overview of types and sources of carbohydrates, how carbohydrates impact blood sugar, the importance of balanced meals and carbohydrate portion control. Discussed components of a balanced meal and the role that healthy fats, fiber and protein play in helping tobetter control blood sugar. Recommendation/Plan: - eliminate sweetened beverages - Keep bydureon with other diabetes medications - improve meal frequency by include a balanced lunch daily. - RD recommends 3 balanced, consistent meals per day w/ whole grains, lean protein, 5 servings non-starchy vegetables and 4 servings fruit; <10% total energy from saturated fat; <5% total energy from added sugar. -30-60 minutes aerobic exercise 3-5 days per week. Monitoring & Evaluation: RD to monitor dietary intake and physical activity, understanding of nutrition education and recommendations, nutrition related labs and vitals Educational materials provided: none Method: verbal Taught to: Patient Barriers to education: other Psychosocial, cultural, or economic barriers to care:none. Outcomes: Pt verbalized understanding Stage of Change: Action DIABETES SELF-MANAGEMENT RECOMMENDATIONS: Recommendation/Plan: - eliminate sweetened beverages - Keep bydureon with other diabetes medications - improve meal frequency by include a balanced lunch daily. - RD recommends 3 balanced, consistent meals per day w/ whole grains, lean protein, 5 servings non-starchy vegetables and 4 servings fruit; <10% total energy from saturated fat; <5% total energy from added sugar. -30-60 minutes aerobic exercise 3-5 days per week. Monitoring & Evaluation: RD to monitor dietary intake and physical activity, understanding of nutrition education and recommendations, nutrition related labs and vitals PATIENT IDENTIFIED GOALS: Reduce soda PATIENT'S PLAN: F/u in 2 weeks. ADDITIONAL INFORMATION FOR PROVIDER: Please see note- a1c has increased to 13.4. Will f/u in 2 weeks. Current Visit Location: Dr. Batres Total Time: 60 minutes in person, 15 minutes charting Referral: none Follow up: Date: Sunday, November 26, 2017 Time: 8 AM With: Yael Blackburn Registered Dietitian Location: [address], [place] Status: Active YaelKAUSHAL Bravo 11/15/2017 12:02 documented in this encounter Plan of Treatment Not on file documented as of this encounter Visit Diagnoses Not on filedocumented in this encounter Care Teams Wildlife Biostation Research Ecologist Relationship Specialty Start Date End Date Jason Batres MD [address] [place] [address] PCP - General 07/27/11 12/31/23 documented as of this encounter
--- OUTSIDE RECORDS SUMMARY | 2024-02-28 16:53 | XMS_ITS | Encounter Summary ---
Author Organization [facility] Address [address] [place] [address] Care Team Providers Care Cafeteria Aide Name Role Phone Jason Batres MD Primary Care Provi margarita Reason for Visit * Reason Comments Foot Pain right Encounter Details Date Type Department Care Team (Late st Contact Info) Description 12/25/2017 13:00 EDT Office Visit [facility]le Program - [address] [address] Angelina Gonzales, [facility] [address] [place] [address] Ulcer of foot, right, with fat layer exposed ([facility]) (Primary Dx); Type 2 diabetes [...] Progress Notes * Angelina Gonzales, DPM - 12/25/2017 1300 EDT Images from the original note were not included. Jeff Scott is a very pleasant 57 y.o. male patient who presents for follow up chronic right footulcer. He reports that he has been doing well. He has been trying to limit his activity. He has been wearing the walking boot most of the time. He has been doing the dressing changes most days. Sometimes he forgets to put a dressing on the foot. He has not had any pain in the foot. Overall he is feeling well denies any nausea, vomiting, fever, chills. Mr. Scott follows with endocrinology for his diabetes. He last saw him on 11/14/2017. His last hemoglobin A1c was 13.4. He has had some trouble with remembering medications and with his diet. He is working hard on this. Patient Active Problem List Diagnosis Date Noted ??? Acute osteomyelitis of phalanx of foot ([facility]) 03/23/2016 Priority: Medium ??? Hypothyroidism 01/22/2013 Priority: Medium ??? Osteoarthritis of left hip 07/06/2014 ??? 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 Arthritis ??? Back pain ??? Diabetes mellitus ([facility]) ??? Hypothyroidism ??? Wears glasses [...] daily. ??? insulin glargine,hum.rec.anlog (INSULIN GLARGINE, BASAGLAR SOLIKPEN,) 100 unit/mL (3 mL) injection pen Inject [...] submetatarsal head 2. ??Measures 5 x 3??mm. Surrounding hyperkeratotic tissue- mild. Granular wound base. [...] for follow-up chronic right foot ulcer. This continues to improve. It is slightly smaller today, and decreased in depth. No signs of infection. I debrided the wound, skin andsubcutaneous tissue, less than 20 cm??. I applied a wet-to-dry dressing. He is going to continue with the daily dressing changes. I stressed the importance of wearing a walking boot at all times when walking and of limiting his activity on the side. I encouraged him to continue to work on his bloodsugars. We discussed how this affects wound healing. I am going to see him back in 3 weeks. He knows to call before then if any problems arise and is happy with this plan. Portions of this document have been prepared with speech recognition software or keyboard data analytics chief scientist techniques. Minor irregularities or keyboarding misprints may be present documented in this encounter Plan of Treatment Not on file documented as of this encounter Visit Diagnoses Diagnosis Ulcer of foot, right, with fat layer exposed ([facility])- Primary Type 2 diabetes mellitus with diabetic polyneuropathy, with long-term current use of insulin ([facility]) documented in this encounter Care Teams Cafeteria Aide Relationship Specialty Start Date End Date Jason Batres MD [address] [place] [id number] PCP - General 07/27/11 12/31/23 documented as of this encounter
--- OUTSIDE RECORDS SUMMARY | 2024-02-28 16:53 | XMS_ITS | Encounter Summary ---
Author Organization [facility] Address [address] [place] [address] Care Team Providers Care Boot And Shoe Laborer Name Role Phone Jason Batres MD Primary Care Provi margarita Reason for Visit * Reason Comments Diabetes Encounter Details Date Type Department Care Team (Late st Contact Info) Description 05/09/2017 9:30 EST Office Visit Jason Batres MD, [facility] [address], [place] [id number] Jason Batres MD [address] [place] [address] Type 2 diabetes mellitus without [...] Sign Reading Time Taken Comments Blood Pressure 136/76 05/09/2017 0929 EST Pulse 94 05/09/2017 0929 EST Temperature 36.3 ??C (97.4 ??F) 05/09/2017 0929 EST Respiratory Rate - - Oxygen Saturation 98% 05/09/2017 09 EST Inhaled Oxygen Concentration - - Weight 120.7 kg (266 lb) 05/09/2017 09 EST Height - - Body Mass Index 48.65 03/21/2017 0848 EST documented in this encounter Functional Status [...] 03/21/2017 8:49 EST documented in this encounter Patient Instructions * Patient Instructions* Jason Batres MD - 05/09/2017 9:30 EST 1. Glimeperide You were on two of the 2 mg pills twice per day I changed this to one of the 4 mg pills twice per day 2. Metformin You were on two of the 500 mg pills twice per day I changed this to one of the 1000 mg pills twice per day 3. Continue the Bydureon once per week 4. Try to change to diet soda instead of regular soda Less doughnuts [place] Peanut Butter instead of Jiff/Skippy Snacks with carrots are better than apples, but apples are better than candy 5. I will also call endocrine for a follow-up appointment. documented in this encounter Ordered Prescriptions Prescription Sig Dispense Quantity Refills Last Filled Start Date End Date exenatide microspheres (BYDUREON) 2 mg/0.65 mL pen injector Inject 2 mg into the skin once a week. 4 Each 3 05/09/2017 8 metFORMIN (GLUCOPHAGE) 1,000 mg tablet Take 1 Tab by mouth 2 times daily with breakfast and dinner. 180 Tab 3 05/09/2017 9 glimepiride (AMARYL) 4 mg tablet Take 1 Tab by mouth 2 times daily. 180 Tab 3 05/09/2017 9 documented in this encounter Progress Notes * Jason Batres MD - 05/09/2017 8552 EST Subjective: Patient ID: Jeff Scott is an 56 y.o. male. No chief complaint on file. HPI Jeff is here for a diabetic follow-up. He last saw endocrinology in November and he missed an appointment with them in February. HE had an increase in his glimeperide at that visit. He knows that he needs refills today, but still has difficulty knowing his medications. He should be on metformin 1000 mg BID, glimeperide 4 mg BID, and his Bydureon once per week. I sent in new prescriptions for his metformin and glimeperide today and for higher doses so he can take one pill at a time instead of two. 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 He really likes this and enjoys staying active. He had a lot of questions about foods he can eat. They have [employer]eps[employer] on hand where he works, so he has1-2 at the end of his shift and will often have doughnuts as we He tried to avoid sweets- but does say he likes apples and other fruits. He enjoys peanut butter and asks if this is OK. He does have aPB sandwich. Social Current Outpatient Prescriptions on File Prior to Visit Medication Sig Dispense Refill ??? blood glucose (FREESTYLE TEST) test strips 1 Strip by misc (non-drug; combo route) route 2 times daily 100 Each 1 ??? blood glucose meter (FREESTYLE FREEDOM LITE) Test FS BID. 1 Each 0 ??? ibuprofen (MOTRIN) 200 mg tablet Take 800 mg by mouth daily. ??? lancets Test BID. 100 Each 1 ??? levothyroxine (SYNTHROID) 112 mcg tablet TAKE ONE TABLET BY MOUTH ONE TIME DAILY 90 Tab 0 No current facility-administered medications on file prior to visit. No Known Allergies Review of Systems Respiratory: Negative for shortness of breath. Cardiovascular: Negative for chest pain. - See HPI Objective: BP 136/76 Pulse 94 Temp 36.3 ??C (97.4 ??F) (Tympanic) Wt (!) 120.7 kg (266 lb) SpO2 98% BMI 48.65 kg/m2 Physical Exam Constitutional: He is oriented [...] a normal mood and affect. Assessment: Plan: Diagnoses and all orders for this visit: Type 2 diabetes mellitus without complication, without long-term current use of insulin (HCC) - POCT Hemoglobin A1c Other orders - glimepiride (AMARYL) 4 mg tablet; Take 1 Tab by mouth 2 times daily. - metFORMIN (GLUCOPHAGE) 1,000 mg tablet; Take 1 Tab by mouth 2 times daily with breakfast and dinner. - exenatide microspheres (BYDUREON) 2 mg/0.65 mL pen injector; Inject 2 mg into the skin once a week. 1. Diabetes I spent 30 minutes with Jeff counseling on his diabetes and diet changes His A1C today is still 12.1 He does have a lot of difficulty remembering his medications and I wonder about compliance. Perhaps this will be easier with one pill twice per day for both metformin and glimeperide. I will also try to get him follow-up again with endocrinology. follow up here in three months Jason Batres MD * Keyla Rhodes - 05/09/2017 0930 EST LVM at home phone re appt 05/18/17 at 4 p.m. With Fátima Marie documented in this encounter Plan of Treatment Not on file documented as of this encounter Procedures Procedure Name Priority Date/Time Associated Diagnosis Comments POCT HEMOGLOBIN A1C Routine 05/09/2017 9 :43 EST Type 2 diabetes mellitus without complication, without long-term current use of insulin (HCC) documented in this encounter Results * (ABNORMAL) POCT HEMOGLOBIN A1C (05/09/2017 9:43 EST) Hemoglobin A1c, POC 12.1(A) <=5.7 % DUARTE BROWN 05/09/2017 9:43 EST Jason Batres MD POINT OF CARE TEST ORDERABLES Final Result Performing Organization Address City/State/[facility] Co de Phone Number UDARTE BROWN [address] [place] [address] documented in this encounter Visit Diagnoses Diagnosis Type 2 diabetes mellitus without complication, without long-term current use of insulin (HCC)- Primary documented in this encounter Discontinued Medications Medication Sig Discontinue Reason Start Date End Da te metFORMIN (GLUCOPHAGE) 500 mg tablet TAKE TWO TABLETS BY MOUTH TWICE DAILY 03/10/2016 05/09/2017 glimepiride (AMARYL) 4 mg tablet Take 1 Tab by mouth 2 times daily. Reorder 11/29/2016 05/09/2017 exenatide microspheres (BYDUREON) 2 mg/0.65 mL pen injector Inject 2 mg into the skin once a week. Reorder 03/20/2017 05/09/2017 documented as of this encounter Care Teams Boot And Shoe Laborer Relationship Specialty Start Date End Date Jason Batres MD [address] [place] [id number] PCP - General 07/27/11 12/31/23 documented as of this encounter
--- OUTSIDE RECORDS SUMMARY | 2024-02-28 16:53 | XMS_ITS | Encounter Summary ---
Author Organization [facility] Address [address] [place] [address] Care Team Providers Care Disposal Operator Name Role Phone Jason Batres MD Primary Care Provi margarita Reason for Visit * Reason Onset Date Comments Foot Problem 09/28/2017 Encounter Details Date Type Department Care Team (Late st Contact Info) Description 09/28/2017 Orders Only [facility] - [address] [address] Angelina Gonzales, [facility] [address] [place] [address] Right foot pain (Primary Dx) Social History Tobacco Use [...] 09/21/2017 8:19 EDT documented in this encounter Plan of Treatment Not on file documented as of this encounter Visit Diagnoses Diagnosis Right foot pain- Primary Pain in limb documented in this encounter Orders Equipment Count Last Ordered Date First Orde red Date GENERIC ORTHO VENDOR DME 1 09/28/2017 documented in this encounter Care Teams Disposal Operator Relationship Specialty Start Date End Date Jason Batres MD [address] [place] [id number] PCP - General 07/27/11 12/31/23 documented as of this encounter
--- OUTSIDE RECORDS SUMMARY | 2024-02-28 16:53 | XMS_ITS | Encounter Summary ---
Author Organization [facility] Address [address] [place] [address] Care Team Providers Care Ribbon Tier Name Role Phone Jason Batres MD Primary Care Provi margarita Encounter Details Date Type Department Care Team (Late st Contact Info) Description 10/18/2017 Community Health Team Jason Batres MD, PC [address] [place], [place] [phone] Yael Blackburn, RD [address] [place] [address] Social History Tobacco Use Types [...] in this encounter Progress Notes * [address]-Cde, KAUSHAL Conley CDE - 10/18/2017 4981 EDT Images from the original note were not included. [facility] Team Gun Perforator Loader Follow-up Visit Name:Jeff Scott Today's Date: 10/19/2017 Date of visit: 10/18/2017 SUBJECTIVE: Jeff Scott is a 56 y.o. male initially referred to the [facility] Team for diabetes self-management education by No ref. provider found. Jeff was last seen on 09/27/17 and returns today for a follow-up CHT CDE visit at [address], [place] accompanied by alone. This is the fifteenth encounter. Pt states that he has not been working due to slow healing of his foot and he is frustrated by this. Pt reports his has been out of town but he has a lot of easy to prepare meals available to make things easier on him. OBJECTIVE: Diabetes type: Type 2 Vitals: There were no vitals taken for this visit. BMI: There is no height or weight on file to calculate BMI. LABORATORY RESULTS: A1c: Lab Results Component Value Date HGBA1C 12.1 (H) 09/07/2017 HGBA1C 12.0 (H) 07/25/2017 HGBA1C 12.1 (A) 05/09/2017 DIABETES MEDICATIONS: Current AntiDiabetic Medications 05/18/2017 09/07/2017 insulin glargine (BASAGLAR KWIKPEN) (subcutaneous) 25 Units QHS* 55 Units QHS exenatide microspheres (subcutaneous) 2 MG [...] not taking at all. CURRENT INSULIN PROGRAM: Basaglar 55 units daily exenatide 2mg weekly INJECTIONS: Patient reports that: Basal: All Other injectables: taking all doses Injection Technique: Patients reports: no problems with shots Site Selection: Patient is choosing appropriate sites: thigh(s) Patient is rotating: appropriate Patient is discarding sharps: Safely DIABETES MEAL PLANNING: Type of meal planning: Consistent Carbohydrate Carbohydrate targets: 3 balanced meals daily with 45-60gcarbohydrate and low carbohydrate snacks ifnecessary Follows meal plan: 50% to 75% of the time PRESENT MEAL PATTERN: Current eating habits:eats 3 meals plus snacks. Breakfast: Scrambled eggs (2-3 eggs) with cheese and onions Lunch: banana and a can of progresso soup or a Peanut butter and jelly sandwich Dinner: progresso soup or bowl of spaghetti (question portion size) Snacks: none reported Beverages: water and diet soda Alcohol: none reported PHYSICAL ACTIVITY: Type of exercise: none Limited activity d/t foot ulcer and requirement to keep foot elevated as often as possible. BLOOD GLUCOSE MONITORING: Glucose monitoring: BID. Barriers to monitoring: None Home Blood Glucoses [...] Nutrition Diagnosis: altered nutrition related lab (a1c 12.1) Etiology: type 2 diabetes, imbalanced nutrition, predicted excess energy intake. Signs & Symptoms: per recall is eating 3 meals/day most with less than 60g carbohydrate. Per ptreport has been using food and medication logs and is remembering medication all of the time, hasn't forgotten since our last visit. Per logs blood glucose are consistently less than 200 this is not consistent with hemoglobin a1c, question accuracy of recorded numbers. Per report pt has not been able to work d/t poorly healing foot ulcer. He is out for at least 2 weeks when the wound will be re examined. Intervention: MNT/Education: Engaged patient in conversation related to positive behavior change, self-management, goal setting and action planning using motivational interviewing and active listening. - Reviewed dietary intake and physical activity. - Reviewed blood glucose measurements, including HgA1C and FBG. - Provided MNT for diabetes including overview of types and sources of carbohydrates, how carbohydrates impact blood sugar, the importance of balanced meals and carbohydrate portion control. Discussed components of a balanced meal and the role that healthy fats, fiber and protein play in helping tobetter control blood sugar. - Discussed MyPlate and balanced meals, snacks, and health benefits of maintaining balanced blood glucose levels throughout day. - Brainstormed meal modifications to improve nutrient balance per MyPlate education and recommendations, including reduced starchy, refined carbohydrate and added sugar, and increased lean protein, healthy fat, and dietary fiber (non-starchy vegetables and fruit). Recommendation/Plan: CDE recommends 3 balanced, consistent meals per day w/ whole grains, lean protein, 5 servings non-starchy vegetables and 4 servings fruit; <10% total energy from saturated fat; <5% total energyfrom added sugar. CDE recommends continue with home blood glucose monitoring twice daily- please bring glucometer to next visit Continue using the logs provided by this CDE to assist in remembering medication and tracking home blood glucose results Monitoring & Evaluation: RD to monitor dietary intake and physical activity, understanding of nutrition education and recommendations, nutrition related labs and vitals Educational materials provided: none Method: verbal Taught to: Patient Barriers to education: other Psychosocial, cultural, or economic barriers to care:none. Outcomes: Pt verbalized understanding Stage of Change: Contemplation DIABETES SELF-MANAGEMENT RECOMMENDATIONS: Recommendation/Plan: CDE recommends 3 balanced, consistent meals per day w/ whole grains, lean protein, 5 servings non-starchy vegetables and 4 servings fruit; <10% total energy from saturated fat; <5% total energyfrom added sugar. CDE recommends continue with home blood glucose monitoring twice daily- please bring glucometer to next visit Continue using the logs provided by this CDE to assist in remembering medication and tracking home blood glucose results Monitoring & Evaluation: RD to monitor dietary intake and physical activity, understanding of nutrition education and recommendations, nutrition related labs and vitals PATIENT'S PLAN: f/u with RD in 1 month Current Visit Location: Dr. Batres Total Time: 60 minutes in person, 20 minutes charting Referral: none Follow up: Date: November Time: 9:30 AM With: Yael Blackburn Registered Dietitian Location: [address] Status: Active KAUSHAL Anderson 10/19/2017 14:12 documented in this encounter Plan of Treatment Not on file documented as of this encounter Visit Diagnoses Not on filedocumented in this encounter Care Teams Ribbon Tier Relationship Specialty Start Date End Date Jason Batres MD [address] [place] [id number] PCP - General 07/27/11 12/31/23 documented as of this encounter
--- OUTSIDE RECORDS SUMMARY | 2024-02-28 16:53 | XMS_ITS | Encounter Summary ---
Author Organization [facility] Address [address] [place] [address] Care Team Providers Care Professor Of Biblical Studies Name Role Phone Jason Batres MD Primary Care Provi margarita Reason for Visit * Reason Comments Diabetes Encounter Details Date Type Department Care Team (Latest Contact Info) Description 01/16/2018 8:30 EST Office Visit [facility] Endocrinology - [facility] [address] [place] [address] Yesi Marie NP [address] [facility] [address] [place] [address] Type 2 diabetes mellitus with hyperglycemia, without long-term current use of insulin ([facility]) (Primary Dx) Social History Tobacco Use [...] Sign Reading Time Taken Comments Blood Pressure 124/86 01/16/2018 0826 EST Pulse 84 01/16/2018 0826 EST Temperature - - Respiratory Rate - - Oxygen Saturation - - Inhaled Oxygen Concentration - - Weight 123.8 kg (273 lb) 01/16/2018 08 EST Height 188 cm (6' 2) 01/16/2018 0826 EST Body Mass Index 35.05 01/16/2018 08 EST documented in this encounter Functional Status [...] * Patient Instructions* Yesi Marie NP - 01/16/2018 8:30 EST Labs today F/U in 10 weeks Start Humalog 20 units at dinner take 10 -15 minutes before the meal Call if getting low sugars Keep sugar in the car. Keep a Basaglar pen at the farm Check some blood sugar especially bed and morning, Stop at [facility] today to product picker new insulin documented in this encounter Ordered Prescriptions Prescription Sig Dispense Quantity Refills Last Filled Start Date End Date insulin lispro (HUMALOG KWIKPEN) 100 unit/mL injectable pen Inject 20 Units into the skin daily with dinner. 18 mL 3 01/16/2018 03/14/2018 documented in this encounter Progress Notes * Rabia Castillo - 01/16/2018 0830 EST Fingerstick blood sample obtained for POCT Hemoglobin A1C performed for this DOS at the order of Yesi Marie NP/ Yusef Barcenas MD * Cynthia Yesi H, MICHELET - 01/16/2018 0889 EST [facility] Follow-up Note CHIEF COMPLAINT: Davi Narvaez presents with 1. Type 2 diabetes mellitus with hyperglycemia, without long-term current use of insulin ([facility]) 2. Craniopharyngioma with memory loss. HPI: 57 year old male from [place] seen in follow-up for his type 2 diabetes and hypothyroidism. He was initially seen in our clinic by Dr. Ramos 11/29/2106 I have seen him 4 times since then most recently 11/14/2017.. Please see notes for details. He also has seen one of our RD's. 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 He developed a foot ulcer last July and when seen in September was out of work in a walking boot with till early fall. At that time podiatry gave him the go ahead to work if stayed off his feet mostly. As a result does not help in the barn with the cows but helps with chores that he does not have to be on his feet much for. He was seen in the ER 01/08 after caught a glove in a wood splitter wth a crush injury and laceration of left 2nd finger.. Results for DAVI NARVAEZ ( ) as of 02/04/2018 18:34 Ref. Range 10/16/2016 11:05 11/29/2016 09:01 05/09/2017 09:43 07/25/2017 09:29 09/07/2017 11:30 11/14/2017 15:58 01/16/2018 08:15 01/17/2018 09:04 Hemoglobin A1c, POC Latest Ref Range: 5.7 % 10.4 (A) 12.1 (A) Hemoglobin A1C, POC Interfaced Latest Ref Range: <5.7 % 12.1 (H) 12.0 (H) 12.1 (H) 13.4 (H) 11.2(H) Ur Alb ug/mg Crea Latest Units: ug/mg Crea 15.4 Ur Albumin mg/dl Latest Units: mg/dL 2.8 He is s/p brain tumor and has limited cognition after Surgery at [facility] 2003- . 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 As a result processes info slowly and needs reinforced. 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 He currently takes Glimiperide 4 mg twice daily metformin 1000 mg twice daily,Bydureon weekly and Basagalr 70 units in the evening. He very occ forgets his meds. Forgot his meter and testing little recently. No lows and says dinners are 155- 195. At his last I showed him the [employer] su[employer]dev continuous glucose sensor today ,and he [...] is not being taken. He sees a radiology physician assistant. Family history is reviewed and includes the [...] Skin: none. Cardiac: none. PHYSICAL EXAMINATION: Vitals:BP 124/86, pulse 84 Weight is 273 down 5 pounds. Physical Exam well-developed male [...] hyperglycemia, without long-term current use of insulin ([facility]) Poor although improved glycemic control most likely in part related to decreased foot infection andworking some now. Working hard to Limit diet. Because of his brain surgery has slow thought processes and forgetfulness , so trying to avoid bolus insulin, but suspect will need at least at dinner shot. Best I can tell compliance taking his diabetes meds is good, although occasionally misses one of his dinner glimiperide, and metformin. Difficult to test BS given working on farm and forgetful so would greatly benefit from a glucose sensor.could decrease risk of severe lows. Needs to start a dinner bolus. Lipids are not at target- No recent labs found so will order today. BP at target without proteinuria, has a normal creatinine. He is not an Cem or ARB Hypothyroidism . Clinically euthyroid Glucose monitoring BID. Referred to diabetic education program. Referred to associate art director no. Patient referred to eye personal care attendant for annual dilated eye exam. Lifestyle modifications: [...] Clinically euthroid not recent tsh found. PLAN: Labs today F/U in 10 weeks Start Humalog 20 units at dinner take 10 -15 minutes before the meal Call if getting low sugars Keep sugar in the car. Keep a Basaglar pen at the farm for when you Forget in aM. Check some blood sugar especially bed and morning, Stop at [employer] today to product picker new insulin *More or less stringent glycemic goals may [...] statin, is an option. Yesi Marie NP 02/04/2018 18:32 I spent a total of 30 minutes in face to face time with this patient, and 20 minutes of that time was spent in counseling and coordination of care as described in This progress note. This note is prepared with voiced recognition. Please excuse any press operator errors. documented in this encounter Plan of Treatment Not on file documented as of this encounter Procedures Procedure Name Priority Date/Time Associated Diagnosis Comments POCT HEMOGLOBIN A1C, INTERFACED Routine 01/16/2018 8:15 EST Type 2 diabetes mellitus with hyperglycemia, without long-term current use of insulin ([facility]) documented in this encounter Results * (ABNORMAL) POCT HEMOGLOBIN A1C, INTERFACED (03/14/2018 9:00 EST) Hemoglobin A1C, POC Interfaced 12.2(H) <5.7 % 03/14/2018 9:18 EST [facility] technician automated equipment ID [id number] 03/14/2018 9:18 EST [facility] Comment: For Hgb A1c [...] 9:00 EST 03/14/2018 9:18 EST Yesi Marie INSIDE SALES ASSOCIATE POINT OF CARE TEST ORDERABL ES Final Result Performing Organization Address [facility] Co de Phone Number [facility] [address] [place] [address] * TSH (01/17/2018 9:04 EST) TSH 1.38 0.47 - 4.68 uIU/ml 01/17/2018 15:58 [facility] Comment: The results of this assay can be falsely lowered due to the consumption of Biotin. Blood specimen (specimen) BLOOD SPECIMEN / Unknown 01/17/2018 9:04 EST 01/17/2018 14:25 EST Yesi Marie INSIDE SALES ASSOCIATE CHEMISTRY & BLOOD GAS ORDER ELIU Final Result Performing Organization Address [facility] de Phone Number [facility] [address] [place] [address] * (ABNORMAL) HEPATIC FUNCTION PANEL (ALB,ALK PHOS,ALT,AST,DBIL,TOT BONNIE,TOT PROT) (01/17/2018 9:04 EST) Pathologist [facility] Albumin 4.6 3.4 - 4.9 g/dl 01/17/2018 15:30 [facility] Total Protein 7.7 6.3 - 8.2 g/dl 01/17/2018 15:30 [facility] Total Alkaline Phosphatase 79 38 - 126 U/L 01/17/2018 15:30 [facility] ALT 90(H) 21 - 72 U/L 01/17/2018 15:30 [facility] AST 91(H) 15 - 46 U/L 01/17/2018 15:30 [facility] Unconjugated Bilirubin 0.2 0.0 - 1.1 mg/dl 01/17/2018 15:30 [facility] Conjugated Bilirubin 0.0 0.0 - 0.3 mg/dl 01/17/2018 15:30 [facility] Bilirubin, Total 0.6 <1.4 mg/dl 01/18/20 18 15:30 [facility] Blood specimen (specimen) BLOOD SPECIMEN / Unknown 01/17/2018 9:04 EST 01/17/2018 14:25 EST Result [facility] Yesi Marie INSIDE SALES ASSOCIATE CHEMISTRY & BLOOD GAS ORDER ELIU Final Result Performing Organization Address [facility] Co de Phone Number [facility] [address] [place] [address] * ALBUMIN, URINE (01/17/2018 9:04 EST) Creatinine, Urn [place] 181.9 mg/dl 01/17/2018 16:56 [facility] Ur Albumin mg/dl 2.8 mg/dL 01/18/20 18 17:01 [facility] Comment:A vida é feita [address] [place] [address] Meth odology in use 07/04/2017 Urine Albumin to Creatinine Ratio 15.4 ug/mg Crea 01/17/2018 17:01 [facility] Comment: Normal: <30 ug/mg creatinine Moderately increased albuminuria: 30-300 ug/mg creatinine Severly increased albuminuria: >300 ug/mg creatinine [place] 5600 Methodology in use 07/04/2017 Urine specimen (specimen) URINE / Unknown 01/17/2018 9:04 EST 01/17/2018 14:26 EST Result [facility] Yesi Marie INSIDE SALES ASSOCIATE CHEMISTRY & BLOOD GAS ORDER ELIU Final Result Performing Organization Address [facility] Co de Phone Number [facility] [address] [place] [address] * LIPID PROFILE (INCLUDES CHOLESTEROL, TRIGLYCERIDES, HDL, LDL) (01/17/2018 9:04 EST) Cholesterol 205 mg/dl 01/17/2018 15:30 [facility] Comment: Desirable:<200 Borderline High:200-239 High:>sr=202 Triglycerides 184 mg/dl 01/17/2018 15:30 [facility] Comment: Normal:<150 Borderline High:150-199 High:200-499 Very High:>fm=501 HDL 43 mg/dl 01/17/2018 15:30 [facility] Comment: Low:<40 Normal:40-60 Desirable: >60 LDL, Calculated 125 mg/dl 8 15:30 [facility] Comment: Optimal:<100 Near Optimal:100-129 Borderline High:130-159 High:160-189 Very High:>hg=970 Chol/HDL Ratio 4.8 01/17/2018 15:30 [facility] Fasting? Unknown 01/17/2018 14:26 [facility] Non HDL Cholesterol 162 mg/dl 01/17/2018 15:30 [facility] Comment: Desirable:<130 Borderline:130-159 High: 160-189 Very High: >of=278 Blood specimen (specimen) BLOOD SPECIMEN / Unknown 01/17/2018 9:04 EST 01/17/2018 14:25 EST Yesi Marie NP CHEMISTRY & BLOOD GAS ORDER ELIU Final Result [facility] [address] [place] [address] * (ABNORMAL) BASIC METABOLIC PANEL (BMP) (01/17/2018 9:04 EST) Sodium 139 136 - 145 mEq/L 01/17/2018 15:30 [facility] Potassium 5.3(H) 3.5 - 5.0 mEq/L 01/17/2018 15:30 [facility] Chloride 101 96 - 110 mEq/L 01/17/2018 15:30 [facility] CO2 28 22 - 32 mEq/L 01/17/2018 15:30 [facility] BUN 19 10 - 26 mg/dl 01/17/2018 15:30 [facility] Creatinine 0.81 0.66 - 1.25 mg/dl 01/17/2018 15:30 [facility] GFR, Calculated 99 >60 ml/min/1.7 3m2 01/17/2018 15:30 [facility] Comment: eGFR calculated using CKD-EPI equation for non Americans. Multiply eGFR by 1.16 for Americans. Calcium 9.6 8.5 - 10.5 mg/dl 01/17/2018 15:30 [facility] Calculated Calcium 9.1 8.5 - 10.5 mg/dl 01/17/2018 15:30 [facility] Glucose, Serum 289(H) 70 - 100 mg/dl 01/17/2018 15:30 [facility] Fasting? Unknown 01/17/2018 14:26 [facility] Blood specimen (specimen) BLOOD SPECIMEN / Unknown 01/17/2018 9:04 EST 01/17/2018 14:25 EST us Yesi Marie NP CHEMISTRY & BLOOD GAS ORDER ELIU Final Result Performing Organization Address City/[facility]/ZIP Co de Phone Number [facility] [address] [place] [address] * (ABNORMAL) POCT HEMOGLOBIN A1C, INTERFACED (01/16/2018 8:15 EST) Hemoglobin A1C, POC Interfaced 11.2(H) <5.7 % 01/16/2018 8:44 [facility] technician automated equipment ID [id number] 01/16/2018 8:44 [facility] Comment: For Hgb A1c [...] Blood specimen (specimen) BLOOD SPECIMEN / Unknown 01/16/2018 8:15 EST 01/16/2018 8:44 EST us Yesi Marie NP POINT OF CARE TEST ORDERABL ES Final Result [facility] [address] [place] [address] documented in this encounter Visit Diagnoses Diagnosis Type 2 diabetes mellitus with hyperglycemia, without long-term current use of insulin ([facility])- Primary documented in this encounter Care Teams Professor Of Biblical Studies Relationship Specialty Start Date End Date Jason Batres MD [address] [place] [address] PCP - General 07/27/11 12/31/23 documented as of this encounter
--- OUTSIDE RECORDS SUMMARY | 2024-02-28 16:53 | XMS_ITS | Encounter Summary ---
Author Organization [facility] Address [address] [place] [address] Care Team Providers Care Associate Financial Planner Name Role Phone Jason Batres MD Primary Care Provi margarita Reason for Visit * Reason Onset Date Comments Diabetes 08/28/2017 Encounter Details Date Type Department Care Team (Late st Contact Info) Description 08/28/2017 Telephone [facility] Endocrinology - [facility] [address] [place] [address] Yeis Marie NP [address] [facility] [address] [place] [address] Diabetes Social History Tobacco Use Types Packs/Day Years [...] encounter Miscellaneous Notes * Telephone Encounter - Rupa Bailon RN - 08/28/2017 1325 EDT Nguyen calling . She is concerned about Jeff BG numbers.He has H/O brain tumor and limited cognition. His numbers have been high and feels he is not managing his BG , eating habits, and administrating his medications consistantly. She is at work and Jeff is home to make his lunch. He also drives to the store to buy foods that are unhealthy. He has had diet instruction at [facility];. but has not followed any information given. He has appointment with Yesi Marie 09/07/17. Instructed Nguyen to have Jeff bring his BG log and/or glucometer if it can be downloaded. Also a list of his current medications. Nguyen stated Jeff does not appreciate her input to these details. * Telephone Encounter - Ramandeep Luna - 08/28/2017 0919 EDT Patient's is concerned as they are having trouble regulating his sugar and would like to know what they can do. They are working with a life insurance sales agent at the [facility] but she is not sure how helpful that has been. Please call documented in this encounter Plan of Treatment Not on file documented as of this encounter Visit Diagnoses Not on filedocumented in this encounter Care Teams Associate Financial Planner Relationship Specialty Start Date End Date Jason Batres MD [address] [place] [id number] PCP - General 07/27/11 12/31/23 documented as of this encounter
--- OUTSIDE RECORDS SUMMARY | 2024-02-28 16:53 | XMS_ITS | Encounter Summary ---
Author Organization [facility] Address [address] [place] [address] Care Team Providers Care Pouncer Machine Name Role Phone Jason Batres MD Primary Care Provi margarita Reason for Visit * Reason Comments Follow-up Right foot check Encounter Details Date Type Department Care Team (Late st Contact Info) Description 08/20/2017 11:[address] [facility]le [facility] - [address] [address] Angelina Gonzales, [facility] [address] [place] [address] Ulcer of foot, right, with fat layer exposed ([facility]) (Primary Dx); Type 2 diabetes mellitus with diabetic polyneuropathy, with long-term current use of insulin ([facility]) Social History Tobacco Use Types [...] - - Weight 125.2 kg (276 lb) 08/20/2017 1121 EDT Height 188 cm (6' 2) 08/20/2017 1121 EDT Body Mass Index 35.44 08/20/2017 1121 EDT documented in this encounter Functional Status [...] 08/20/2017 11:22 EDT documented in this encounter Progress Notes * Angelina Gonzales, BRENDA - 08/20/2017 1130 EDT Images from the original note were not included. Jeff Scott is a very pleasant 56 y.o. male patient who presents for follow up right foot ulcer. He reports that he has been doing very well. [facility] has been helping him with dressing changes. They believe the ulcer has been improving in size. He has been wearing the walking boot and limiting his activity. Overall he is feeling well today and denies any nausea, vomiting, fever, chills. Patient Active Problem List Diagnosis Date Noted ??? Acute osteomyelitis of phalanx of foot ([facility]) 03/23/2016 Priority: Medium ??? Hypothyroidism 01/22/2013 Priority: Medium ??? Osteoarthritis of left hip 07/06/2014 ??? 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 Craniopharyngioma ([facility]) 09/19/2010 ??? 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 ??Picture as below. ??Measures 1.5 x 1 cm. Surrounding hyperkeratotic tissue- minimal. Maceration improved- very minimal. Granular wound base. Noprobe to bone.. ??No surrounding erythema or edema. ??No pain on palpation or probing. ??No malodor. ??No necrosis. No??drainage. ??MMT 5 out of 5. ??Gross protective sensation diminished. ? [...] going to continue with the daily dressing changes, as below. He is going to continue in the walking boot and continue to limit his activities. I am going to see him back in 2-3 weeks. He knows to call before then if any problem arises and is happy with this plan. Instructions for [facility]: No changes to plan this week: Please change dressing to right foot daily. ??Ok to have Mr. Scott do this himself every other day.Pack wound with a saline wet-to-dry packing. ??Prior to applying this, paint periphery of wound with Betadine to dry out the macerated tissue. ??Apply dry sterile gauze dressing. ??Apply a light KACEY??bandage. ??He is limited weightbearing in the offloading walking boot. ??He has a follow up appointment with me again on 09/10/17. Portions of this document have been prepared with speech recognition software or keyboard data sciences director techniques. Minor irregularities or keyboarding misprints may be present documented in this encounter Plan of Treatment Not on file documented as of this encounter Visit Diagnoses Diagnosis Ulcer of foot, right, with fat layer exposed ([facility])- Primary Type 2 diabetes mellitus with diabetic polyneuropathy, with long-term current use of insulin ([facility]) documented in this encounter Care Teams Pouncer Machine Relationship Specialty Start Date End Date Jason Batres MD [address] [place] [address] PCP - General 07/27/11 12/31/23 documented as of this encounter
--- OUTSIDE RECORDS SUMMARY | 2024-02-28 16:53 | XMS_ITS | Encounter Summary ---
Author Organization [facility] Address [address] [place] [address] Care Team Providers Care Pipe Organ Tuner And Repairer Name Role Phone Jason Batres MD Primary Care Provi margarita Reason for Visit * Reason Comments Diabetes Encounter Details Date Type Department Care Team (Latest Contact Info) Description 11/14/2017 16:00 EDT Office Visit [facility] Endocrinology - [facility] [address] [place] [address] Yesi Marie NP [address] [facility] [address] [place] [address] Type 2 diabetes mellitus with hyperglycemia, without long-term current use of insulin ([facility]) (Primary Dx) Social History Tobacco Use Types [...] Sign Reading Time Taken Comments Blood Pressure 125/77 11/14/2017 1546 EDT Pulse - - Temperature - - Respiratory Rate - - Oxygen Saturation - - Inhaled Oxygen Concentration - - Weight 126.4 kg (278 lb 11.2 oz) 11/14/2017 1546 EDT Height 188 cm (6' 2) 11/14/2017 1546 EDT Body Mass Index 35.78 11/14/2017 1546 EDT documented in this encounter Functional Status [...] Patient Instructions * Patient Instructions* Yesi Marie ANP - 11/14/2017 16:00 EDT Freestyle Clifton Lite meter ordered. Call your insurance and which continuous glucose sensor they cover. Test before meals and bed for 1 month and get readings to me. Take your old meter and new if you can get in time to visit tomorrow with RD. Check expiration date of your test strips Increase Lantus 70 units. F/U in 2 months Call if blood sugars stay over 200. 1 week on new insulin dose [id number] documented in this encounter Ordered Prescriptions Prescription Sig Dispense Quantity Refills Last Filled Start Date End Date FREESTYLE FREEDOM LITE Use as directed as needed (glucose monitoring). 1 Each 11/14/2017 insulin glargine,hum.rec.a nlog (INSULIN GLARGINE, BASAGLAR LATANYA,) 100 unit/mL (3 mL) injection penIndications:Typ e 2 diabetes mellitus with hyperglycemia, without long-term current use of insulin ([facility]) Inject 70 Units into the skin at bedtime. 65 mL 3 11/14/2017 0 documented in this encounter Progress Notes * Rosenda Cesar - 11/14/2017 1600 EDT Fingerstick blood sample obtained for POCT Hemoglobin A1C performed for this DOS at the order of MICHAEL Garcia * Yesi Marie ANP - 11/14/2017 1600 EDT [facility] Follow-up Note CHIEF COMPLAINT: Davi Narvaez presents with 1. Type 2 diabetes mellitus with hyperglycemia, without long-term current use of insulin ([facility]) HPI: 56 year old male from [place] seen in follow-up for his type 2 diabetes and hypothyroidism. He was initially seen in our clinic by Dr. Ramos 11/29/2106 I have seen him 3 times since then most recently 09/07/2017. Please see notes for details. He also has seen one of our RD and has seen an RD [facility] and has an appointment with her tomorrow. 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 He developed a foot ulcer and july and when seen in September was out of work in a walking boot with [facility] coming for dressing changes. He just saw podiatry and it is healing and has been given the go ahead to work if stays off his feet mostly. As a result does not help in the barn with the cows but helps with chores that he does not have to be on his feet much for. He is s/p brain tumor and has limited cognition Surgery at [facility] 2004-5. 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 As a result processes info slowly and needs reinforced. 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 Hemoglobin A1c today is 13.4% representing a blood sugar of 365 DAVI NARVAEZ ( ) as of 09/07/2017 14:53 Ref. Range 02/07/2017 09:30 05/09/2017 09:43 07/20/2017 09:37 07/25/2017 09:29 09/07/2017 11:30 Hemoglobin A1c, POC Latest Ref Range: 5.7 % 12.1 (A) Hemoglobin A1C, POC Interfaced Latest Ref Range: <5.7 % 12.0 (H) 12.1 (H) He currently takes Glimiperide 4 mg twice daily metformin 1000 mg twice daily,Bydureon weekly and Basagalr 55 uni in the evening. He very occ forgets his meds. Forgot his meter but reports tests fastings averaging about 170 and pre-dinner about 180 no hypoglycemia reports the lowest he has seen is 162. However these readings are inconsistent with his hemoglobin A1c which represents an average sugar of 365. He has an older meter plus does alternative site testing that is on his arms. I have ordered him a new meter and since he is meeting with the dietitian tomorrow will plan to pick it up and take both meters to the visit to be checked plus his technique. I showed him the Experiment sukhdev continuous glucose sensor today and he is very interested. The sensor is worn 10 days does not require any calibration. He understands will need to step up his testing most likely to qualify His wt got up to 305 while on steroids and took years to get down. He loves salad. He does not always remember to eat lunch (PB sandwich or crackers). He has cut backon his regular soda, as was up to 2 cans/day. Diabetes He presents for his follow-up diabetic [...] is not being taken. He sees a inside sales representative. Family history is reviewed and includes the [...] glimepiride, ibuprofen, insulin glargine (basaglar kwikpen), insulin pen needles 31g x 3/16, lancets, levothyroxine, and metformin. Prior treatment for diabetes: medications: Various regimens of oral agents but he cannot recall except perhaps that he was on Januvia until the Bydureon was added. Patient's last HgbA1C was 10%. The patient has experienced the following acute complications: none. Social History Substance Use Topics ??? Smoking status: Never Smoker ??? Smokeless tobacco: Former User Types: Chew ??? Alcohol use No Psychosocial, cultural, or economic factors that [...] none. Neurologic: Status post brain tumor with decreased slow. Thought processes and forgetfulness Kidney: none. Sexual: No inquiry made. PVD: Unremarkable. Skin: none. Cardiac: none. PHYSICAL EXAMINATION: Vitals:BP 125/77, pulse not available Weight is 278 up 10 pounds. Physical Exam well-developed male in no acute distress. Slow cognitively processing thoughts secondary to. Brain tumor Heart & lung sounds unremarkable without carotid bruit Funduscopic: deferred Feet: deferred LABS: Lab Results Component Value Date HGBA1C 13.4 (H) 11/14/2017 HGBA1C 12.1 (H) 09/07/2017 HGBA1C 12.0 (H) 07/25/2017 Lab Results Component Value Date CHOL 220 02/17/2016 HDL 42 02/17/2016 LDLBASE 146 02/17/2016 TRIG 159 02/17/2016 CHOLHDL 5.2 02/17/2016 Lab Results Component Value Date BUN 18 03/09/2016 CREATININE 0.72 03/09/2016 NA 142 03/09/2016 K 4.4 03/09/2016 Lab Results Component Value Date ALT 130 (H) 02/17/2016 Lab Results Component Value Date LABALBU 4.5 02/17/2016 Results for DAVI NARVAEZ ( ) as [...] hyperglycemia, without long-term current use of insulin ([facility]) Worsened glycemic control despite increasing his basal insulin this might be in part related to decreased activity from his foot infection in addition question if his meter is accurate plus using alternative site testing and technique might be an issue Because of his brain surgery has slow thought processes and forgetfulness , so trying to avoid bolus insulin, but suspect will need at least at dinner shot. However, I think he is still under insulinized especially since less active now out of work , so will increase his Basaglar dose. In the interim we will ask the RD he meets tomorrow to check his fingerstick technique and equipment. I will get him back quite quickly and start bolus insulinas needed. Best I can tell compliance taking his diabetes meds is good, although occasionally misses one of his dinner glimiperide, and metformin. Lipids are not at target- not addressed today . No recent labs found. Deferred to PCP BP at target without proteinuria, has a normal creatinine. He is not an Cem or ARB Hypothyroidism . Clinically euthyroid Glucose monitoring BID. Referred to diabetic education program. Referred to community service specialist no. Patient referred to eye day care director for annual dilated eye exam. Lifestyle modifications: [...] Clinically euthroid not recent tsh found. PLAN: Freestyle Clifton Lite meter ordered. Call your insurance and which continuous glucose sensor they cover. Test before meals and bed for 1 month and get readings to me. Take your old meter and new if you can get in time to visit tomorrow with RD. Check expiration date of your test strips Increase Lantus 70 units. F/U in 2 months Call if blood sugars stay over 200. 1 week on new insulin dose [id number] Carry a small box of raisens, packet of skittles, small juice boxes Carry a fast sugar at all times at work and in car and at beside . Such as Skittles Be sure to tell your co workers about possible lows, and where your keep your food. Call our clinic if getting low (More than 1/wk (70) Plan to start at least a bolus at his largest meal if sugars, high. Next week Fasting labs late November *More or less stringent glycemic goals may [...] dose of a statin, is an option. MICHAEL Garcia 11/14/2017 17:12 I spent a total of 25 minutes in face to face time with this patient, and 15 minutes of that time was spent in counseling and coordination of care as described in This progress note. This note is prepared with voiced recognition. Please excuse any level vial setter errors. documented in this encounter Plan of Treatment Not on file documented as of this encounter Procedures Procedure Name Priority Date/Time Associated Diagnosis Comments POCT HEMOGLOBIN A1C, INTERFACED Routine 11/14/2017 15:58 EDT Type 2 diabetes mellitus with hyperglycemia, without long-term current use of insulin ([facility]) documented in this encounter Results * (ABNORMAL) POCT HEMOGLOBIN A1C, INTERFACED (01/16/2018 8:15 EST) Hemoglobin A1C, POC Interfaced 11.2(H) <5.7 % 01/16/2018 8:44 EST [facility] counselor aide ID [id number] 01/16/2018 8:44 EST [facility] Comment: For Hgb A1c [...] Unknown 01/16/2018 8:15 EST 01/16/2018 8:44 EST Yesi Marie NP POINT OF CARE TEST ORDERABL ES Final Result [facility] [address] [place] [phone] * (ABNORMAL) POCT HEMOGLOBIN A1C, INTERFACED (11/14/2017 15:58 EDT) Hemoglobin A1C, POC Interfaced 13.4(H) <5.7 % 11/14/2017 16:13 EDT [facility] counselor aide ID [id number] 11/14/2017 16:13 EDT [facility] Comment: For Hgb A1c [...] Blood specimen (specimen) BLOOD SPECIMEN / Unknown 11/14/2017 15:58 EDT 11/14/2017 16:13 EDT Yesi Marie TRIM MECHANIC POINT OF CARE TEST ORDERABL ES Final Result [facility] [address] [place] [address] documented in this encounter Visit Diagnoses Diagnosis Type 2 diabetes mellitus with hyperglycemia, without long-term current use of insulin ([facility])- Primary documented in this encounter Discontinued Medications Medication Sig Discontinue Reason Start Date End Da te insulin glargine,hum.rec.anlog (INSULIN GLARGINE, BASAGLAR KWIKPEN,) 100 unit/mL (3 mL) injection penIndications:Type 2 diabetes mellitus with hyperglycemia, without long-term current use of insulin ([facility]) Inject 55 Units into the skin at bedtime. Reorder 09/07/2017 11/14/2017 documented as of this encounter Care Teams Pipe Organ Tuner And Repairer Relationship Specialty Start Date End Date Jason Batres MD [address] [place] [address] PCP - General 07/27/11 12/31/23 documented as of this encounter
--- OUTSIDE RECORDS SUMMARY | 2024-02-28 16:53 | XMS_ITS | Encounter Summary ---
Author Organization [facility] Address [address] [place] [address] Care Team Providers Care Eviscerator Name Role Phone Jason Batres MD Primary Care Provi margarita Reason for Visit * Reason Comments New Patient Visit Right foot check Encounter Details Date Type Department Care Team (Late st Contact Info) Description 08/03/2017 8:00 EDT Office Visit [facility] Foot & Ankle Program - [address] [address] Elie Betancourt, [facility] [address] [place] [address] Neuropathic diabetic ulcer of foot [...] - - Weight 121.6 kg (268 lb) 08/03/2017 0809 EDT Height 188 cm (6' 2) 08/03/2017 0809 EDT Body Mass Index 34.41 08/03/2017 08 EDT documented in this encounter Functional Status [...] 08/03/2017 8:09 EDT documented in this encounter Progress Notes * Herlinda Schuster LPN - 08/03/2017 08 EDT Call to [facility] triage - patient seen by Dr. Betancourt today- no change in wound care orders. Herlinda Schuster LPN * Elie Betancourt DPM - 08/03/2017 08 EDT HISTORY OF PRESENT ILLNESS: A 56-year-old male presents today with concern of an open ulcer underneath the ball of his right foot. He estimates that this has been going on for the past 2 months. The patient does have poor memory due to previous craniopharyngioma tumor. The patient does have diabetes. His last hemoglobin A1c was 12. He does take metformin and insulin in managing his diabetes. 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 He was recently seen by Dr Angelina Gonzales who debrided the wound and gave him specific instructions as far as dressing changes as well as the use of a walking boot, which he has been diligent with utilizing. He denies any fevers, chills or night sweats. He does have a previous right 2nd toe partial amputation that he had undergone. The patient's remaining past medical history, medications, allergies, past surgical, social and family history were reviewed and noted in the electronic health record. PHYSICAL EXAM: Constitutional exam: The patient is in no acute distress. Psychological exam: The patient is awake, alert and oriented. However, he does have lapses in short-term memory, as per conversation. He has to frequently pause in order to focus on the conversation and topic at hand. Vascular exam: He has palpable pedal pulses to his right foot. Neurologic exam: He has diminished sensation consistent with diabetic peripheral neuropathy. Musclestrength testing was not performed today. Dermatologic exam: He has a full-thickness ulceration on the plantar surface of his right foot. This measures 2 x 2.5 cm in rough diameter, it has a healthy granular base. There is no probing to boneor undermining. The surrounding tissue shows no signs of infection. There is modest serous drainagestemming from the wound and there is no malodor. Orthopedic exam: Partial amputation of the right 2nd toe is noted. IMPRESSION: Diabetic ulceration, right foot. TREATMENT PLAN: His wound appears stable. We did gently debride away some hyperkeratosis around theperiphery of the wound. Deeper debridement was not required as part of today's visit. He does not require antibiotics at this point. He was told to continue to stay off of this to the best of his ability and to use the surgical shoe and continue with daily dressing changes as per outlined by Dr Gonzales. He does have a followup with Dr Gonzales in another week's period of time. We also discussed that his blood sugar control, needs to improve in order for him to have a chance at getting this wound to heal and hopefully stay healed, thereafter. He understands this and will continue to work with the medicine team to this end. documented in this encounter Plan of Treatment Not on file documented as of this encounter Visit Diagnoses Diagnosis Neuropathic diabetic ulcer of foot (HCC-CMS)- Primary Type II or unspecified type diabetes mellitus with other specified manifestations, not stated as uncontrolled documented in this encounter Care Teams Eviscerator Relationship Specialty Start Date End Date Jason Batres MD [address] [place] [address] PCP - General 07/27/11 12/31/23 documented as of this encounter
--- OUTSIDE RECORDS SUMMARY | 2024-02-28 16:53 | XMS_ITS | Encounter Summary ---
Author Organization [facility] Address [address] [place] [address] Care Team Providers Care Filter Changing Technician Name Role Phone Jason Batres MD Primary Care Provi margarita Reason for Visit * Reason Comments Follow-up Right 2nd toe check Encounter Details Date Type Department Care Team (Late st Contact Info) Description 05/18/2017 8:30 EDT Office Visit [facility] Foot & Ankle Program - [address] [address] Angelina Gonzales [facility] [address] [place] [address] Type 2 diabetes mellitus with diabetic polyneuropathy, without long-term current use of insulin (HCC) (Primary Dx); Status post amputation of toe of right foot (CMS-HCC) (HCC-CMS) Social History Tobacco Use Types Packs/Day [...] - Inhaled Oxygen Concentration - - Weight 120.7 kg (266 lb) 05/18/2017 0813 EDT Height 157.5 cm (5' 2) 05/18/2017 0813 EDT Body Mass Index 48.65 05/18/2017 0813 EDT documented in this encounter Functional Status * Because of a physical, mental, or emotional condition, does this person have difficulty doing errands alone such as visiting a doctor's office or shopping? Answer Date of Assessment Author Yes 05/18/2017 8:14 EDT documented as of this encounter Mental Status * Because of a physical, mental, or emotional condition, does this person have serious difficulty concentrating, remembering, or making decisions? Answer Entry Date Author Yes 05/18/2017 8:14 EDT documented in this encounter Progress Notes * Angelina Gonzales, BRENDA - 05/18/2017 0830 EDT Jeff Scott is a very pleasant 56 y.o. male patient who presents for follow up high risk diabeticfoot evaluation and care. He reports that he has been doing well. He has been wearing shoes at all times and not going barefoot. He does try to remember to check his feet on a regular basis. He has not noticed any redness, pain, swelling, open areas. Overall he is feeling well today. Patient Active Problem List Diagnosis Date Noted ??? [place]omyelitis of phalanx of foot [place] 03/23/2016 Priority: Medium ??? Hypothyroidism 01/22/2013 Priority: Medium ??? Osteoarthritis of left hip 07/06/2014 ??? 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 Craniopharyngioma ([facility]) 09/19/2010 ??? 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 Arthritis ??? Back pain ??? Diabetes mellitus [place] ??? Hypothyroidism ??? Wears glasses Past Surgical [...] is 157.5 cm (62) and weight is 120.7 kg (266 lb) (abnormal). PHYSICAL EXAM: General: AO x 3, NAD Lower extremity:??Palpable pedal pulses. Skin temperature gradient within normal limits. Capillary filling time less than 3 seconds to toes 1, 3, 4, 5 on the R, 1-5 on the L. 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 Healed well. Ulcer plantar medial right great toe- healed. No hyperkeratosis here. ??No pain on palpation. No ulcerative or pre-ulcerative lesions. Nails well groomed. ??Manual muscle testing 5 out of 5.??Protective sensation intact but diminished to toes. ASSESSMENT: 1. Type 2 diabetes mellitus with diabetic polyneuropathy, without long-term current use of insulin ([facility]) 2. Status post amputation of toe of right foot ([facility]) No orders of the defined types were placed in this encounter. PLAN: Mr. Scott presents today for follow-up high risk diabetic foot evaluation and care. He is doing very well. He does not have any ulcerative or precaution of lesions. He discussed importance of checking the feet daily. We reviewed things to look out for including redness, swelling, pain, calluses, open areas. I did encourage him to get fitted for the new custom insoles and he is going to do this inthe next week or so. We reviewed proper shoe gear. I am going to see him back in 2 months. He knowsto call before then if any problems arise and is happy with this plan. Portions of this document have been prepared with speech recognition software or keyboard medical data entry clerk techniques. Minor irregularities or keyboarding misprints may be present documented in this encounter Plan of Treatment Not on file documented as of this encounter Visit Diagnoses Diagnosis Type 2 diabetes mellitus with diabetic polyneuropathy, without long-term current use of insulin (HCC)- Primary Status post amputation of toe of right foot (HCC-CMS) Lower limb amputation, other toe(s) documented in this encounter Care Teams Filter Changing Technician Relationship Specialty Start Date End Date Jason Batres MD [address] [place] [id number] PCP - General 07/27/11 12/31/23 documented as of this encounter
--- OUTSIDE RECORDS SUMMARY | 2024-02-28 16:53 | XMS_ITS | Encounter Summary ---
Author Organization [facility] Address [address] [place] [address] Care Team Providers Care Foreign Languages Department Chair Name Role Phone Jason Batres MD Primary Care Provi margarita Reason for Visit * Reason Comments Diabetes Encounter Details Date Type Department Care Team (Latest Contact Info) Description 07/25/2017 9:40 EDT Office Visit [facility] Endocrinology - [facility] [address] [place] [address] Yesi Marie NP [address] [facility] [address] [place] [address] Type 2 diabetes mellitus with hyperglycemia, without long-term current use of insulin ([facility]) (Primary Dx) Social History Tobacco Use [...] Sign Reading Time Taken Comments Blood Pressure 114/74 07/25/2017 0929 EDT Pulse 97 07/25/2017 0929 EDT Temperature - - Respiratory Rate - - Oxygen Saturation - - Inhaled Oxygen Concentration - - Weight 121.6 kg (268 lb) 07/25/2017 09 EDT Height 157.5 cm (5' 2.01) 07/25/2017 09 EDT Body Mass Index 49.01 07/25/2017 09 EDT documented in this encounter Functional Status * Because of a physical, mental, or emotional condition, does this person have difficulty doing errands alone such as visiting a doctor's office or shopping? Answer Date of Assessment Author Yes 07/25/2017 9:37 EDT documented as of this encounter Mental Status * Because of a physical, mental, or emotional condition, does this person have serious difficulty concentrating, remembering, or making decisions? Answer Entry Date Author Yes 07/25/2017 9:37 EDT documented in this encounter Patient Instructions * Patient Instructions* Yesi Marie ANP - 07/25/2017 9:40 EDT Carry a small box of raisens, packet of skittles, small juice boxes Increase Basalgar (daily shots to 35 units at dinner for 1 week and if morning sugars over 150 increase to 40 units. F/U in 2 months Call in 2-3 weeks if sugars staying over 200 at dinner or getting under 70. [phone]. documented in this encounter Progress Notes * Glenys Bradford - 07/25/2017 0940 EDT Fingerstick blood sample obtained for POCT Hemoglobin A1C performed for this DOS at the order of MICHAEL Garcia/Leslie Castillo DO * Yesi Marie ANP - 07/25/2017 0940 EDT [facility] Follow-up Note CHIEF COMPLAINT: Davi Narvaez presents with 1. Type 2 diabetes mellitus with hyperglycemia, without long-term current use of insulin ([facility]) HPI: 56 year old male from [place] seen in follow-up for his type 2 diabetes and hypothyroidism. He was seen once before in our clinic by Dr. Ramos 11/29/2106 and I saw him initially 05/18/2017. Please see note for details. He also has seen one of our RD. 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 As a result pProcesses info slowly and needs reinforced. 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 . 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 We started him on Basalgar insulin 05/31/2017. Results for DAVI NARVAEZ ( ) as of 05/18/2017 18:05 Ref. Range 05/18/2016 13:09 10/16/2016 11:05 11/29/2016 09:01 02/07/2017 09:30 05/09/2017 09:43 Hemoglobin A1c, POC Latest Ref Range: 5.7 % 10.1 (A) 10.4 (A) 12.1 (A) Hemoglobin A1C, POC Interfaced Latest Ref Range: <5.7 % 12.1 (H) He currently takes Glimiperide 4 mg twice daily metformin 1000 mg twice daily,Bydureon weekly and Basagalr 25 units daily.. He occ forgets his meds. He check his BS twice daily but did not bring. Reports Am 140-180 and dinner higher. . No lows. His wt got up to 305 while on steroids and took years to get down. He loves salad. He does not always remember to eat lunch (PB sandwich or crackers). He drinks 2 cans of reg soda/day. He knows needs to eat to keep up energy now more physical Diabetes He presents for his follow-up diabetic [...] male sex. He is compliant with treatment most of the time. He has had a previous visit with a dietitian. He participates in exercise daily. An CEM inhibitor/angiotensin II receptor bettye is not being taken. He sees a database administration project manager. Family history is reviewed and includes the following: unsure except for youger sister. Davi Narvaez has a history of being in poor glycemic control. Patient has a history of being compliant most of the time with medical therapy. Patient's home regimen consists of has a current medication list which includes the following prescription(s): amoxicillin-clavulanate, blood glucose, blood glucose meter, exenatide microspheres, glimepiride, ibuprofen, insulin glargine (basaglar kwikpen), insulin [...] Skin: none. Cardiac: none. PHYSICAL EXAMINATION: Vitals:BP 114/74, pulse is 97. Weight is 268, up 3 pounds. Physical Exam well-developed male in no acute distress. Slow cognitively processing thoughts. [place] Heart & lung sounds unremarkable without carotid bruit Funduscopic: deferred Feet: deferred LABS: Lab Results Component Value Date HGBA1C 12.0 (H) 07/25/2017 HGBA1C 12.1 (A) 05/09/2017 HGBA1C 12.1 (H) 11/29/2016 Lab Results Component Value Date CHOL 220 [...] hyperglycemia, without long-term current use of insulin ([facility]) Continued poor glucose control after starting basal insulin early June. It sounds like he might have had an undocumented mild low or blood sugars are dropping quickly at work. Because of his brain surgery has slow thought processes and forgetfulness , so trying to avoid bolus insulin, but may needat least at dinner shot. However, I think he is still under insulinized so will increase his Basaglar dose today and get him back rather quickly. I have asked him to contact us in the interim if getting low or sugars stay high. Compliance taking his diabetes meds is good, although occasionally misses one of his dinner glimiperide, and metformin. Lipids are not at target- not addressed today . No recent labs found. Deferred to PCP BP at target without proteinuria, has a normal creatinine. He is not an Cem or ARB Hypothyroidism . Clinically euthyroid Glucose monitoring BID. Referred to diabetic education program. Referred to health science specialist no. Patient referred to eye career development director for annual dilated eye exam. Lifestyle [...] Clinically euthroid not recent tsh found. PLAN: Carry a small box of raisens, packet of skittles, small juice boxes Increase Basalgar (daily shots to 35 units at dinner for 1 week and if morning sugars over 150 increase to 40 units. F/U in 2 months Call in 2-3 weeks if sugars staying over 200 at dinner or getting under 70. [phone]. Keep some lunch food including fruit at the barn. Keep diet soda at the barn , avoid regular soda Carry a fast sugar at all times at work and in car and at beside . Such as Skittles Be sure to tell your co workers about possible lows, and where your keep your food. Call our clinic if getting low (More than 1/wk (70) Recommend BMP, lipid panel, LFTs, TSH and urine microalbumin if none in the past year *More or less stringent glycemic goals may [...] a statin, is an option. MICHAEL Garcia 07/25/2017 10:13 I spent a total of 25 minutes in face to face time with this patient, and 15 minutes of that time was spent in counseling and coordination of care as described in This progress note. This note is prepared with voiced recognition. Please excuse any commercial leasing agent errors. documented in this encounter Plan of Treatment Not on file documented as of this encounter Procedures Procedure Name Priority Date/Time Associated Diagnosis Comments POCT HEMOGLOBIN A1C, INTERFACED Routine 07/25/2017 9:29 EDT Type 2 diabetes mellitus with hyperglycemia, without long-term current use of insulin ([facility]) documented in this encounter Results * (ABNORMAL) POCT HEMOGLOBIN A1C, INTERFACED (09/07/2017 11:30 EDT) Hemoglobin A1C, POC Interfaced 12.1(H) <5.7 % 09/07/2017 11:46 EDT [facility] bead wire insulator ID [id number] 09/07/2017 11:46 EDT [facility] Comment:Test performed at En docrinology Blood specimen (specimen) BLOOD SPECIMEN / Unknown 09/07/2017 11:30 EDT 09/07/2017 11:46 EDT Yesi Marie ELECTRONICS ENGINEERING TECHNICIAN POINT OF CARE TEST ORDERABL ES Final Result [facility] [address] [place] [id number] * (ABNORMAL) POCT HEMOGLOBIN A1C (07/25/2017 9:29 EDT) Hemoglobin A1C, POC Interfaced 12.0(H) <5.7 % 07/25/2017 9:50 EDT [facility] bead wire insulator ID [id number] 07/25/2017 9:50 EDT [facility] Comment:Test performed at En docrinology Blood specimen (specimen) BLOOD SPECIMEN / Unknown 07/25/2017 9:29 EDT 07/25/2017 9:50 EDT us Tre Ramos MD POINT OF CARE TEST ORDERAB LES Final Result [facility] [address] [place] [address] documented in this encounter Visit Diagnoses Diagnosis Type 2 diabetes mellitus with hyperglycemia, without long-term current use of insulin ([facility])- Primary documented in this encounter Care Teams Foreign Languages Department Chair Relationship Specialty Start Date End Date Jason Batres MD [address] [place] [id number] PCP - General 07/27/11 12/31/23 documented as of this encounter
--- OUTSIDE RECORDS SUMMARY | 2024-02-28 16:53 | XMS_ITS | Encounter Summary ---
Author Organization [facility] Address [address] [place] [address] Care Team Providers Care Cassandra Developer Name Role Phone Jason Batres MD Primary Care Provi margarita Reason for Visit * Reason Comments Diabetes Hypothyroidism Encounter Details Date Type Department Care Team (Latest Contact Info) Description 09/07/2017 11:30 EDT Office Visit [facility] Endocrinology - [facility] [address] [place] [address] Yesi Marie NP [address] [facility] [address] [place] [address] Type 2 diabetes mellitus with hyperglycemia, without long-term current use of insulin ([facility]) (Primary Dx) Social History Tobacco Use Types [...] Sign Reading Time Taken Comments Blood Pressure 127/73 09/07/2017 1124 EDT Pulse 86 09/07/2017 1124 EDT Temperature - - Respiratory Rate - - Oxygen Saturation - - Inhaled Oxygen Concentration - - Weight 124.3 kg (274 lb) 09/07/2017 1124 EDT wit h ortho boot Height 188 cm (6' 2.02) 09/07/2017 1124 EDT 1.8 8 m Body Mass Index 35.16 09/07/2017 1124 EDT documented in this encounter Functional Status [...] 09/07/2017 11:35 EDT documented in this encounter Patient Instructions * Patient Instructions* Yesi Marie ANP - 09/07/2017 11:30 EDT Check your blood sugar every morning before breakfast and before supper. Increase your Lantus to 55 units each evening. Continue your weekly Bydureon, Metformin 1000 mg and Glimipedride 4 mg breakfast and supper Call next Sunday with blood sugars. F/U in 2 months documented in this encounter Ordered Prescriptions Prescription Sig Dispense Quantity Refills Last Filled Start Date End Date insulin glargine,hum.rec.a nlog (INSULIN GLARGINE, BASAGLAR KWIKPEN,) 100 unit/mL (3 mL) injection penIndications:Typ e 2 diabetes mellitus with hyperglycemia, without long-term current use of insulin ([facility]) Inject 55 Units into the skin at bedtime. 50 mL 3 09/07/2017 11/14/2017 documented in this encounter Progress Notes * Glenys Bradford - 09/07/2017 1130 EDT Fingerstick blood sample obtained for POCT Hemoglobin A1C performed for this DOS at the order of MICHAEL Garcia/Alfa Lugo DO * Yesi Marie ANP - 09/07/2017 1130 EDT [facility] Follow-up Note CHIEF COMPLAINT: Davi Narvaez presents with 1. Type 2 diabetes mellitus with hyperglycemia, without long-term current use of insulin ([facility]) HPI: 56 year old male from [place] seen in follow-up for his type 2 diabetes and hypothyroidism. He was seen once before in our clinic by Dr. Ramos 11/29/2106. I saw him initially 05/18/2017 and most recently 07/25/2017. Please see note for details. He also has seen one of our RD. He is s/p brain tumorand has limited cognition Surgery at [facility] 2003-. 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 As a result processes info slowly and needs reinforced. 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 Unfortunately,in July developed a foot ulcer, so has been out of work with a walking boot. VNA has been doing dressing changes twice a week up until last week and sees podiatry monthly. Resultsfor DAVI NARVAEZ ( ) as of 09/07/2017 14:53 Ref. Range 02/07/2017 09:30 05/09/2017 09:43 07/20/2017 09:37 07/25/2017 09:29 09/07/2017 11:30 Hemoglobin A1c, POC Latest Ref Range: 5.7 % 12.1 (A) Hemoglobin A1C, POC Interfaced Latest Ref Range: <5.7 % 12.0 (H) 12.1 (H) He currently takes Glimiperide 4 mg twice daily metformin 1000 mg twice daily,Bydureon weekly and Basagalr 35 units daily.. He occ forgets his meds. Has not been checking his blood sugars, saying focused on healing his foot.. No lows. He check sugars on his arms are in fingers and self-report is a couple of fastings 175 and 191 I explained the relationship with high sugars and infections and healing, urging him to start testing again. His wt got up to 305 while [...] is not being taken. He sees a returner. Family history is reviewed and includes the [...] hyperglycemia, without long-term current use of insulin ([facility]) Continued poor glucose control despite starting basal insulin early June, partly because of foot infection and decreased activity. Because of his brain surgery has slow thought processes and forgetfulness , so trying to avoid bolus insulin, but may need at least at dinner shot. However, I think heis still under insulinized especially since less active now out of work , so will increase his Basaglar dose today and having call blood sugars in next week. Best I can tell compliance taking his [...] diabetic education program. Referred to director of corporate communications no. Patient referred to eye animal care assistant for annual dilated eye exam. Lifestyle modifications: [...] Clinically euthroid not recent tsh found. PLAN: Check your blood sugar every morning before breakfast and before supper. Increase your Lantus to 55 units each evening. Continue your weekly Bydureon, Metformin 1000 mg and Glimipedride 4 mg breakfast and supper Call next Sunday with blood sugars. F/U in 2 months Carry a small box of raisens, packet [...] a statin, is an option. MICHAEL Garcia 09/07/2017 11:46 I spent a total of 25 minutes in face to face time with this patient, and 15 minutes of that time was spent in counseling and coordination of care as described in This progress note. This note is prepared with voiced recognition. Please excuse any brake lining finisher asbestos errors. documented in this encounter Plan of Treatment Not on file documented as of this encounter Procedures Procedure Name Priority Date/Time Associated Diagnosis Comments POCT HEMOGLOBIN A1C, INTERFACED Routine 09/07/2017 11:30 EDT Type 2 diabetes mellitus with hyperglycemia, without long-term current use of insulin ([facility]) documented in this encounter Results * (ABNORMAL) POCT HEMOGLOBIN A1C, INTERFACED (11/14/2017 15:58 EDT) Hemoglobin A1C, POC Interfaced 13.4(H) <5.7 % 11/14/2017 16:13 EDT [facility] damage appraiser ID [id number] 11/14/2017 16:13 EDT [facility] Comment: For Hgb A1c values [...] Unknown 11/14/2017 15:58 EDT 11/14/2017 16:13 EDT us Yesi Marie TELEPHONE COLLECTOR POINT OF CARE TEST ORDERABL ES Final Result Performing Organization Address City/[facility] Co de Phone Number [facility] [address] [place] [address] * (ABNORMAL) POCT HEMOGLOBIN A1C, INTERFACED (09/07/2017 11:30 EDT) Hemoglobin A1C, POC Interfaced 12.1(H) <5.7 % 09/07/2017 11:46 EDT [facility] damage appraiser ID [id number] 09/07/2017 11:46 EDT [facility] Comment:Test performed at En docrinology Blood specimen (specimen) BLOOD SPECIMEN / Unknown 09/07/2017 11:30 EDT 09/07/2017 11:46 EDT us Yesi Marie TELEPHONE COLLECTOR POINT OF CARE TEST ORDERABL ES Final Result Performing Organization Address [facility] Co de Phone Number [facility] [address] [place] [address] documented in this encounter Visit Diagnoses Diagnosis Type 2 diabetes mellitus with hyperglycemia, without long-term current use of insulin ([facility])- Primary documented in this encounter Discontinued Medications Medication Sig Discontinue Reason Start Date End Da te INSULIN GLARGINE,HUM.REC.ANLOG (INSULIN GLARGINE, BASAGLAR KWIKPEN,) 100 unit/mL (3 mL) injection pen Inject 25 Units into the skin at bedtime. Reorder 05/18/2017 09/07/2017 documented as of this encounter Care Teams Cassandra Developer Relationship Specialty Start Date End Date Jason Batres MD [address] [place] [id number] PCP - General 07/27/11 12/31/23 documented as of this encounter
--- OUTSIDE RECORDS SUMMARY | 2024-02-28 16:53 | XMS_ITS | Encounter Summary ---
Author Organization [facility] Address [address] [place] [address] Care Team Providers Care Ping Pong Table Assembler Name Role Phone Jason Batres MD Primary Care Provi margarita Encounter Details Date Type Department Care Team (Late st Contact Info) Description 07/20/2017 Phlebotomy Only [address] [address] [place] Machine Operator Helper, Outpatient Ulcer of foot, right, with fat layer exposed ([facility]); Type 2 diabetes mellitus with diabetic polyneuropathy, with long-term current use of insulin ([facility]) Social History Tobacco Use Types Packs/Day [...] Procedure Name Priority Date/Time Associated Diagnosis Comments BACTERIAL CULTURE/SMEAR, TISSUE Routine 07/20/2017 9:37 EDT Ulcer of foot, right, with fat layer exposed ([facility]) Type 2 diabetes mellitus with diabetic polyneuropathy, with long-term current use of insulin ([facility]) documented in this encounter Results * BACTERIAL CULTURE/SMEAR, TISSUE (07/20/2017 9:37 EDT) Gram Smear Result Few Polys 07/20/2017 17:12 EDT [facility] Gram Smear Result Many Mixed gram positive and gram negative organisms 07/20/2017 17:12 EDT [facility] Result Mod Mixed gram positive and gram negative organisms 07/22/2017 15:03 EDT [facility] Result Smear suggests minimal or no inflammation. 07/22/2017 15:03 EDT [facility] Specimen of unknown material (specimen) TISSUE SPECIMEN / Unknown 07/20/2017 9:37 EDT 07/20/2017 16:22 EDT Comment:right foot ulcer sof t tissue us Angelina Gonzales DPM MICROBIOLOGY - GENERAL ORDERABL ES Final Result [facility] [address] [place] [address] documented in this encounter Visit Diagnoses Diagnosis Ulcer of foot, right, with fat layer exposed ([facility]) Type 2 diabetes mellitus with diabetic polyneuropathy, with long-term current use of insulin ([facility]) documented in this encounter Care Teams Ping Pong Table Assembler Relationship Specialty Start Date End Date Jason Batres MD [address] [place] [address] PCP - General 07/27/11 12/31/23 documented as of this encounter
--- OUTSIDE RECORDS SUMMARY | 2024-02-28 16:53 | XMS_ITS | Encounter Summary ---
Author Organization [facility] Address [address] [place] [address] Care Team Providers Care Accounts Payable Supervisor Name Role Phone Jason Batres MD Primary Care Provi margarita Reason for Visit * Reason Onset Date Comments Nutrition Counseling 08/02/2017 Encounter Details Date Type Department Care Team (Late st Contact Info) Description 08/02/2017 Telephone Jason Batres MD, PC [address] [place], [place] [phone] Jason Batres MD [address] [place] [address] Nutrition Counseling Social History Tobacco Use Types Packs/Day Years [...] 07/26/2017 12:18 EDT documented in this encounter Miscellaneous Notes * Telephone Encounter - Jason Batres MD - 08/02/2017 1634 EDT Can Nguyen come with him to the visit to discuss his diabetes? Jason Batres MD * Telephone Encounter - Keyla Rhodes - 08/02/2017 1615 EDT Nguyen Scott called to see if Jeff can be given a diet that may list several items he could have forall three meals and maybe snacks. He doesn't read the books he gets from [facility] dietitian. If he hearshe can have bananas, he will have 2 or more at a serving, hides them under his cereal. Now has a little money so will buy candy. He won't listen to what Nguyen tells him so she wonders if you could give him a diet written out if that might help. He has appt on 08/[address] Batres and maybe you can saysomething to him also. documented in this encounter Plan of Treatment Not on file documented as of this encounter Visit Diagnoses Not on filedocumented in this encounter Care Teams Accounts Payable Supervisor Relationship Specialty Start Date End Date Jason Batres MD [address] [place] [id number] PCP - General 07/27/11 12/31/23 documented as of this encounter
--- OUTSIDE RECORDS SUMMARY | 2024-02-28 16:53 | XMS_ITS | Encounter Summary ---
Author Organization [facility] Address [address] [place] [address] Care Team Providers Care Ethnology Professor Name Role Phone Jason Batres MD Primary Care Provi margarita Encounter Details Date Type Department Care Team (Late st Contact Info) Description 08/13/2017 Community Health Team Jason Batres MD, PC [address] [place], [place] [address] Yael Blackburn, RD [address] [place] [address] Social History Tobacco Use Types [...] Progress Notes * Alexey Ramirez, KAUSHAL Conley - 08/13/2017 0904 EDT Community Health Team Registered Dietitian Phone Encounter Date of encounter: 08/13/2017 Jeff Scott pt did not arrive for appointment scheduled with [facility] KAUSHAL/KARIME. Left detailed voice message for pt to call [facility] to reschedule missed appointment. Dr. Batres Total Time: 5 minutes Referral: none Follow up: Jeff Castillo Tyler was not able to make today's visit w/ [facility] RD. JUVENCIO Admin Team please contact to reschedule. Thank you Status: Active Thank you for this referral. Yael Blackburn RD, CD Clinical Dietitian, T documented in this encounter Plan of Treatment Not on file documented as of this encounter Visit Diagnoses Not on filedocumented in this encounter Care Teams Ethnology Professor Relationship Specialty Start Date End Date Jason Batres MD [address] [place] [address] PCP - General 07/27/11 12/31/23 documented as of this encounter
--- OUTSIDE RECORDS SUMMARY | 2024-02-28 16:53 | XMS_ITS | Encounter Summary ---
Author Organization [facility] Address [address] [place] [address] Care Team Providers Care Informatics Educator Name Role Phone Jason Batres MD Primary Care Provi margarita Encounter Details Date Type Department Care Team (Late st Contact Info) Description 09/27/2017 Community [facility] Team Jason Batres MD, PC [address] [place], [place] [id number] Yael Blackburn, RD [address] [place] [address] Social History Tobacco Use Types [...] * [address]-Cde, KAUSHAL Conley CDE - 09/27/2017 1344 EDT [facility] Team Solar Manager Follow-up Visit Name:Jeff Scott Today's Date: 09/27/2017 Date of visit: 09/27/2017 SUBJECTIVE: Jeff Scott is a 56 y.o. male initially referred to the Community Health Team for diabetes self-management education by No ref. provider found. Jeff was last seen on 07/31/17 and returns today for a follow-up CHT CDE visit at . [place] accompanied by alone. This is the fourteenth encounter. Jeff reports that he is back to work and continues to enjoy his work. 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 Pt states that he has cut back on the amountof food that he is eating and the amount of soda that he is drinking. Pt states that he is drinkingdiet soda most of the time. OBJECTIVE: Diabetes type: Type 2 Vitals: [...] not taking at all. CURRENT INSULIN PROGRAM: 55 units of basaglar daily 2mg exenatide weekly on sundays INJECTIONS: Patient reports that: Basal: All Other injectables: All Injection Technique: Patients reports: no problems with shots Site Selection: Patient is choosing appropriate sites: thigh(s) Patient is rotating: appropriate Patient is discarding sharps: Safely DIABETES MEAL PLANNING: Type of meal planning: Consistent Carbohydrate Carbohydrate targets: 3 balanced, consistent meals per day w/ whole grains, lean protein, 5 servings non-starchy vegetables and 4 servings fruit; <10% total energy from saturated fat; <5% totalenergy from added sugar. 45-60g carbohydrate/meal Follows meal plan: Less than 25% of the time PRESENT MEAL PATTERN: Current eating habits:skips meals, high in simple carbohydrates and high carbohydrate drinks. Unable to obtain a thorough food recall. Pt states that he is trying to choose diet beverages but 3or more times each week will have regular soda. Pt notes that he has cut back on his portion sizes at dinner. Breakfast is still a large bowl of cereal (about 1/5-2 cups with milk and a banana and a slice of toast with peanut butter). He is skipping lunch most days but will bring snacks to work that include peanut butter and jelly sandwich with grapes and corn chips. 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 States that he is often tired and just doesn't think to do it in the afternoon. With meter: One touch Barriers to monitoring: Forgets to test Home Blood Glucoses Running: patient forgot to bring HBG readings. HYPOGLYCEMIA MANAGEMENT: Hypoglycemic event: none reported Patient is carrying a source of rapid acting CHO: candy and raisins Patient has a current supply of glucagon? No Patient is wearing Medic Alert: No STRESS MANAGEMENT/COPING SKILLS: Pt reports appropriate stress management/coping skills. Being able to work is a large stress management tool for him. ASSESSMENT: Jeff was seen for f/u medical nutrition therapy and diabetes self management education. Nutrition Diagnosis: altered nutrition related lab (a1c 12.1%); overweight/obesity Etiology: type 2 diabetes, imbalanced nutrition, excessive carbohydrate intake, physical inactivity. Signs & Symptoms: per recall limited changes made to achieve improved glycemic control. Per recall decreased frequency of home blood glucose monitoring, and no results to review at this visit. Ptcontinues to drink regular soda but has cut back on frequency. Per report has reduced portion size of high carbohydrate foods though meals continue to be high in carbohydrate mainly related to the num gomez of high carb foods he is including with each meal. Pt is wearing a boot d/t foot ulcer, per report is caring for as instructed and has been allowed to return to work. Per recall pt is taking medications as ordered reporting that sometimes he doesn't take them at exactly the right time. Reportedblood glucose results are not consistent with hemoglobin a1c. Intervention: MNT/Education: Engaged patient in conversation related to positive behavior change, self-management, goal setting and action planning using motivational interviewing and active listening. - Reviewed dietary intake and physical activity. - Reviewed blood glucose measurements, including HgA1C and FBG. - Discussed MyPlate and balanced meals, snacks, and health benefits of maintaining balanced blood glucose levels throughout day. - Brainstormed meal modifications to improve nutrient balance per MyPlate education and recommendations, including reduced starchy, refined carbohydrate and added sugar, and increased lean protein, healthy fat, and dietary fiber (non-starchy vegetables and fruit). - reviewed MNT for diabetes including overview of types and sources of carbohydrates, how carbohydrates impact blood sugar, the importance of balanced meals and carbohydrate portion control. Discussed components of a balanced meal and the role that healthy fats, fiber and protein play in helping tobetter control blood sugar. Recommendation/Plan: CDE recommends 3 balanced, consistent meals per day w/ whole grains, lean protein, 5 servings non-starchy vegetables and 4 servings fruit; <10% total energy from saturated fat; <5% total energyfrom added sugar. 30-60 minutes aerobic exercise 3-5 days per week. - resume home blood glucose monitoring twice daily and track on template provided Sunday Morning Blood glucose Glimepiride metformin Evening Blood Glucose Glimepiride metformin Basaglar Bydureon - eliminate sweetened beverages including regular soda Monitoring & Evaluation: CDE to monitor dietary intake and physical activity, understanding of nutrition education and recommendations, nutrition related labs and vitals Educational materials provided: tracking Method: verbal Taught to: Patient Barriers to education: other Psychosocial, cultural, or economic barriers to care:none. Outcomes: Pt verbalized understanding Stage of Change: Preparation DIABETES SELF-MANAGEMENT RECOMMENDATIONS: Recommendation/Plan: CDE recommends 3 balanced, consistent meals per day w/ whole grains, lean protein, 5 servings non-starchy vegetables and 4 servings fruit; <10% total energy from saturated fat; <5% total energyfrom added sugar. 30-60 minutes aerobic exercise 3-5 days per week. - resume home blood glucose monitoring twice daily and track on template provided Sunday Morning Blood glucose Glimepiride metformin Evening Blood Glucose Glimepiride metformin Basaglar Bydureon - eliminate sweetened beverages including regular soda Monitoring & Evaluation: RD to monitor dietary intake and physical activity, understanding of nutrition education and recommendations, nutrition related labs and vitals PATIENT IDENTIFIED GOALS: Return for f/u in 3 weeks with tracking sheets Current Visit Location: Dr. Batres Total Time: 60 minutes in person, 15 minutes admin, 15 minutes charting Referral: none Follow up: Date: October Time: 9 AM With: Linda Dudley Dietitifredy Location: [address] Status: Active KAUSHAL Anderson 09/27/2017 13:45 documented in this encounter Plan of Treatment Not on file documented as of this encounter Visit Diagnoses Not on filedocumented in this encounter Care Teams Informatics Educator Relationship Specialty Start Date End Date Jason Batres MD [address] [place] [address] PCP - General 07/27/11 12/31/23 documented as of this encounter
--- OUTSIDE RECORDS SUMMARY | 2024-02-28 16:53 | XMS_ITS | Encounter Summary ---
Author Organization [facility] Address [address] [place] [address] Care Team Providers Care Retail Field Merchandiser Name Role Phone Jason Batres MD Primary Care Provi margarita Reason for Visit * Reason Comments Diabetes Encounter Details Date Type Department Care Team (Latest Contact Info) Description 05/18/2017 16:00 EDT Office Visit [facility] Endocrinology - [facility] [address] [place] [address] Yesi Marie NP [address] [facility] [address] [place] [address] Acquired hypothyroidism (Primary Dx); Type 2 diabetes mellitus with hyperglycemia, without long-term current use of insulin ([facility]) ([facility]) Social History Tobacco Use Types Packs/Day Years [...] Sign Reading Time Taken Comments Blood Pressure 129/77 05/18/2017 1600 EDT Pulse 91 05/18/2017 1600 EDT Temperature - - Respiratory Rate - - Oxygen Saturation - - Inhaled Oxygen Concentration - - Weight 120.2 kg (265 lb) 05/18/2017 1600 EDT Height 157.5 cm (5' 2.01) 05/18/2017 1600 EDT Body Mass Index 48.46 05/18/2017 1600 EDT documented in this encounter Functional Status [...] * Patient Instructions* Yesi Marie ANP - 05/18/2017 16:00 EDT Keep some lunch food including fruit at the barn. Keep diet soda at the barn , avoid regular soda Start Lantus 25 units Check to be sure your test strips have not . Fasting labs at [facility]. F/U in 2 months Check blood sugars Carry a fast sugar at all times at work and in car and at beside . Such as Skittles Be sure to tell your co workers about possible lows and where your keep your food. Call our clinic if getting low (More than 1/wk (70) documented in this encounter Ordered Prescriptions Prescription Sig Dispense Quantity Refills Last Filled Start Date End Date INSULIN GLARGINE,HUM.REC.A NLOG (INSULIN GLARGINE, BASAGLAR SOLIKPEN,) 100 unit/mL (3 mL) injection pen Inject 25 Units into the skin at bedtime. 35 mL 3 05/18/2017 8 insulin pen needles 31G x 05/18 Use 1 pen needle as directed daily. Brand: BD Ultra Fine Mini 100 Each 12 05/18/2017 9 levothyroxine (SYNTHROID) 112 mcg tablet TAKE ONE TABLET BY MOUTH ONE TIME DAILY 90 Tab 05/18/2017 8 documented in this encounter Progress Notes * Yesi Marie, ANP - 05/18/2017 1600 EDT [facility] Follow-up Note CHIEF COMPLAINT: Davi Narvaez presents with 1. Acquired hypothyroidism 2. Type 2 diabetes mellitus with hyperglycemia, without long-term current use of insulin ([facility]) HPI: 56 year old male from [place] seen in follow-up for his type 2 diabetes and hypothyroidism he wasseen once before in our clinic by Dr. Ramos 11/29/2106. Please see note for details. He also has seen one of our RD. 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 Processes info slowly and needs reinforced. 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 Results for DAVI NARVAEZ ( ) as of 05/18/2017 18:05 Ref. Range 05/18/2016 13:09 10/16/2016 11:05 11/29/2016 09:01 02/07/2017 09:30 05/09/2017 09:43 Hemoglobin A1c, POC Latest Ref Range: 5.7 % 10.1 (A) 10.4 (A) 12.1 (A) Hemoglobin A1C, POC Interfaced Latest Ref Range: <5.7 % 12.1 (H) He currently takes Glimiperide 4 mg twice daily metformin 1000 mg twice daily and Bydureon. He occ forgets his meds. He check his BS twice daily but did not bring. 162 this AM and eves higher. No lows. His wt got up to [...] type 2 diabetes mellitus. Onset time: unsure His disease course has been worsening. There are no hypoglycemic associated symptoms. Associated symptoms include polydipsia, polyuria and nocturia. Pertinent negatives for diabetes include no blurred v ision, no fatigue, no foot paresthesias, no foot ulcerations, no polyphagia, no visual change, no weakness and no weight loss. Pertinent negatives for diabetic complications include no CVA, heart disease, nephropathy, peripheral neuropathy, PVD or retinopathy. Risk factors for coronary artery disease include family history, obesity and male sex. He is compliant with treatment some of the time. Hehas had a previous visit with a dietitian. He sees a furnace hand (injured rt great toe seeing [facility] podiatry ). Family history is reviewed and includes the following: unsure except for youger sister. Davi Narvaez has a history of being in poor glycemic control. Patient has a history of being compliant most of the time with medical therapy. Patient's home regimen consists of has a current medication list which includes the following prescription(s): blood glucose, blood glucose meter, exenatide microspheres, glimepiride, ibuprofen, lancets, levothyroxine, and metformin. Prior treatment for [...] review was otherwise negative Eye: none. Neurologic: none. Kidney: none. Sexual: No inquiry made. PVD: Have what looks like an green and osteomyelitis of the second toe on the right and now anotherulcer underneath a callus on the great toe/first metatarsal on the right as well. Skin: none. Cardiac: none. PHYSICAL EXAMINATION: Vitals:BP 129/77, pulse 91, wt 265 lbs. Down 8 pounds since last seen. Physical Exam General appearance - alert, well appearing, and in no distress, oriented to person, place, and timeand Not a very good historian Mental status - alert, oriented to person, place, and time, normal mood, behavior, speech, dress, motor activity, and thought processes Neck - supple, no significant adenopathy, carotids upstroke normal bilaterally, no bruits, thyroid exam: Not felt Chest - clear to auscultation, no wheezes, rales or rhonchi, symmetric air entry Heart - normal rate, regular rhythm, normal S1, S2, no murmurs, rubs, clicks or gallops Extremities - peripheral pulses normal, no pedal edema, no clubbing or cyanosis Skin - normal coloration and turgor, no rashes, no suspicious skin lesions noted Funduscopic: deferred Feet: dferred LABS: Lab Results Component Value Date HGBA1C 12.1 (A) 05/09/2017 HGBA1C 12.1 (H) 11/29/2016 HGBA1C 10.4 (A) 10/16/2016 Lab Results Component Value Date CHOL 220 02/17/2016 HDL 42 02/17/2016 LDLBASE 146 02/17/2016 TRIG 159 02/17/2016 CHOLHDL 5.2 02/17/2016 Lab Results Component Value Date BUN 18 03/09/2016 CREATININE 0.72 03/09/2016 NA 142 03/09/2016 K 4.4 03/09/2016 Lab Results Component Value Date ALT 130 (H) 02/17/2016 Lab Results Component Value Date LABALBU 4.5 02/17/2016 ASSESSMENT/PLAN: 1. Acquired hypothyroidism 2. Type 2 diabetes mellitus with hyperglycemia, without long-term current use of insulin ([facility]) Continued poor glucose control and needs to start basal insulin cautiously since just starting to work a very physical job. He feels forgetting his meds is not a bit issue. Lipids are not at target- not addressed today BP at target without proteinuria, has a normal creatinine. Non-insulin: diet. Recommended: At this time KACEY inhibitor and statin therapy were not discussed but based on a previous LDL E probably need statin therapy. Glucose monitoring BID. Referred to diabetic education program. Referred to marshmallow maker no. Patient referred to eye critical care unit manager for annual dilated eye exam. Lifestyle modifications: recommend exercise and recommend compliance with a diabetic diet Patient does not demonstrate knowledge of diabetes and expectations. Patient does not understand medication regimen. Barriers to adherence: Cognitive Disability. Goals and plan to achieve these discussed. Systolic blood pressure less than 140. And diastolic blood pressure less than 80. Hemoglobin A1C less than 7%. LDL cholesterol: 70 to 99. HDL males >40 and females >50 mgm/dl Clinically euthroid not recent tsh found. PLAN: Keep some lunch food including fruit at the barn. Keep diet soda at the barn , avoid regular soda Start Lantus 25 units Check to be sure your test strips have not . Fasting labs at [facility]. F/U in 2 months Check blood sugars Carry a fast sugar at all times at work and in car and at beside . Such as Skittles Be sure to tell your co workers about possible lows, and where your keep your food. Call our clinic if getting low (More than 1/wk (70) *More or less stringent glycemic goals may [...] a statin, is an option. MICHAEL Garcia 05/18/2017 16:31 I spent a total of 45 minutes in face to face time with this patient, and 25 minutes of that time was spent in counseling and coordination of care as described in This progress note. This note is prepared with voiced recognition. Please excuse any body component engineer errors. documented in this encounter Plan of Treatment Not on file documented as of this encounter Visit Diagnoses Diagnosis Acquired hypothyroidism- Primary Unspecified hypothyroidism Type 2 diabetes mellitus with hyperglycemia, without long-term current use of insulin ([facility]) documented in this encounter Discontinued Medications Medication Sig Discontinue Reason Start Date End Da te levothyroxine (SYNTHROID) 112 mcg tablet TAKE ONE TABLET BY MOUTH ONE TIME DAILY Reorder 03/19/2017 05/18/2017 documented as of this encounter Care Teams Retail Field Merchandiser Relationship Specialty Start Date End Date Jason Batres MD [address] [place] [address] PCP - General 07/27/11 12/31/23 documented as of this encounter
--- OUTSIDE RECORDS SUMMARY | 2024-02-28 16:53 | XMS_ITS | Encounter Summary ---
Author Organization [facility] Address [address] [place] [address] Care Team Providers Care Line Driver Name Role Phone Jason Batres MD Primary Care Provi margarita Reason for Visit * Reason Comments Follow-up Right 2nd toe ulcer Encounter Details Date Type Department Care Team (Latest Contact Info) Description 03/21/2017 8:30 EST Office Visit [facility] Foot & Ankle Program - [address] [address] Angelina Gonzales, [facility] [address] [place] [address] Hyperkeratosis (Primary Dx); Type 2 diabetes mellitus with diabetic polyneuropathy, without long-term current use of insulin (HCC); Status post amputation of toe of right foot (CMS-HCC) ([facility]) Social History Tobacco Use Types Packs/Day [...] - - Weight 126.1 kg (278 lb) 03/21/2017 0848 EST Height 157.5 cm (5' 2) 03/21/2017 0848 EST Body Mass Index 50.85 03/21/2017 0848 EST documented in this encounter [...] Progress Notes * Angelina Gonzales, DPM - 03/21/2017 0830 EST Jeff Scott is a very pleasant 56 y.o. male patient who presents for follow up right great toe ulcer. He reports that this has been doing very well. He believes it has healed. He has not been putting a dressing on it recently. He denies any pain in the toe. He has been wearing the offloading insoles as instructed. Overall he is feeling very well today. 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 Patient Active Problem List Diagnosis Date Noted ??? Acute osteomyelitis of phalanx of foot ([facility]) 03/23/2016 Priority: Medium ??? Hypothyroidism 01/22/2013 Priority: Medium ??? Osteoarthritis of left hip 07/06/2014 ??? 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 Arthritis ??? Back pain ??? Diabetes mellitus ([facility]) ??? Hypothyroidism ??? Wears glasses Past Surgical [...] 1 Tab by mouth 2 times daily. 200 Tab 3 ??? ibuprofen (MOTRIN) 200 mg tablet Take 800 mg by mouth daily. ??? lancets Test BID. 100 Each 1 ??? levothyroxine (SYNTHROID) 112 mcg tablet TAKE ONE TABLET BY MOUTH ONE TIME DAILY 90 Tab 0 ??? metFORMIN (GLUCOPHAGE) 500 mg tablet TAKE TWO TABLETS BY MOUTH TWICE DAILY 360 Tab 5 No current facility-administered medications for this visit. No Known Allergies Review of Systems A ten point review of systems was performed. Pertinent positives are listed below, all others are negative. Vital signs: height is 157.5 cm (62) and weight is 126.1 kg (278 lb) (abnormal). PHYSICAL EXAM: General: AO x 3, NAD Lower extremity:??Palpable pedal pulses. Skin temperature gradient within normal limits. Capillary filling time less than 3 seconds to toes 1, 3, 4, 5 on the R, 1-5 on the L. 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 Healed well. Ulcer plantar medial right great toe- healed. Very mildhyperkeratotic surrounding skin. No pain on palpation. Nails well groomed. ??Manual muscle testing 5 out of 5.??Protective sensation intact but diminished to toes. ASSESSMENT: 1. Hyperkeratosis GENERIC DME ORDER 2. Type 2 diabetes mellitus with diabetic polyneuropathy, without long-term current use of insulin (HCC) GENERIC DME ORDER 3. Status post amputation of toe of right foot ([facility]) GENERIC DME ORDER Other Orders Placed This Visit Procedures ??? Generic DME Order PLAN: Mr. Scott presents today for follow-up right great toe ulcer. This has healed. He has only a very mild amount of overlying hyperkeratotic tissue. I advised him that he no longer needs to apply dressing to the area, as the wound has healed. I recommended that he not pick at the callus here, as this is how the ulcer formed. He is to continue in the padded insole that he currently has in his shoe. Idid write him a prescription for new custom molded accommodative insoles, and gave him instructionson where to be fitted for these- [facility]. We discussed that the goal of these are to offload the area and prevent recurrence of the ulcer. I will see him back in 2 months. He knows to continue to closely monitor the feet. He knows to call with any questions or concerns prior to follow-up and is happy with this plan. Portions of this document have been prepared with speech recognition software or keyboard senior data analyst techniques. Minor irregularities or keyboarding misprints may be present documented in this encounter Plan of Treatment Not on file documented as of this encounter Visit Diagnoses Diagnosis Hyperkeratosis- Primary Acquired keratoderma Type 2 diabetes mellitus with diabetic polyneuropathy, without long-term current use of insulin (HCC) Status post amputation of toe of right foot (HCC-CMS) Lower limb amputation, other toe(s) documented in this encounter Orders Equipment Count Last Ordered Date First Orde red Date GENERIC DME ORDER 1 03/21/2017 documented in this encounter Care Teams Line Driver Relationship Specialty Start Date End Date Jason Batres MD [address] [place] [id number] PCP - General 07/27/11 12/31/23 documented as of this encounter
--- OUTSIDE RECORDS SUMMARY | 2024-02-28 16:54 | XMS_ITS | Encounter Summary ---
Author Organization [facility] Address [address] [place] [address] Care Team Providers Care Dethistler Operator Name Role Phone Jason Batres MD Primary Care Provi margarita Encounter Details Date Type Department Care Team (Late st Contact Info) Description 11/15/2016 Community Health Team Jason Batres MD, PC [address] [place], [place] [address] Yael Blackburn, RD [address] [place] [address] Social History Tobacco Use Types [...] shopping? Answer Date of Assessment Author Yes 11/08/2016 11:33 EDT documented as of this encounter Mental Status * Because of a physical, mental, or emotional condition, does this person have serious difficulty concentrating, remembering, or making decisions? Answer Entry Date Author Yes 11/08/2016 11:33 EDT documented in this encounter Patient Instructions * Patient Instructions* Yael Blackburn RD - 11/15/2016 11:11 EDT documented in this encounter Progress Notes * Yael Blackburn RD - 11/15/2016 1111 EDT Images from the original note were not included. [facility] Team Head Of Marketing Follow-up Visit Name:Jeff Scott Today's Date: 11/15/2016 Date of visit: 11/15/2016 SUBJECTIVE: Jeff Scott is a 55 y.o. male initially referred to the [facility] Health Team for diabetes self-management education by No ref. provider found. Jeff was last seen on 10/12/16 and returns today for a follow-up CHT CDE visit at Dr. Calle accompanied by alone. This is the seventh encounter. Pt states that he has started tanzeum and things are going ok. Pt reports that he hasn't seen much difference in home blood glucose results. Pt states that he still isn't working but really wants to and plans to re connect with Lupe Gonzalez to discuss status of last interview. OBJECTIVE: Diabetes type: Type 2 Vitals: There were no vitals taken for this visit. BMI: There is no height or weight on file to calculate BMI. LABORATORY RESULTS: A1c: Lab Results Component Value Date HGBA1C 10.4 (A) 10/16/2016 HGBA1C 10.1 (A) 05/18/2016 HGBA1C 10.0 (A) 02/17/2016 DIABETES MEDICATIONS: Current AntiDiabetic Medications 10/16/2016 10/20/2016 exenatide microspheres (subcutaneous) - 2 MG Q7 DAYS (2 mg/0.65 mL pnij) dulaglutide (subcutaneous) Discontinued - albiglutide (subcutaneous) 30 MG Q7 DAYS (30 mg/0.5 mL pnij) Discontinued sitaGLIPtin (oral) - - glimepiride (oral) 4 MG BID 4 MG BID metFORMIN (oral) TAKE TWO TABLETS BY MOUTH TWICE DAILY (500 mg tab) TAKE TWO TABLETS BY MOUTH TWICEDAILY (500 mg tab) CURRENT INSULIN PROGRAM: INJECTIONS: Patient reports that: Other injectables: tanzeum Injection Technique: Patients reports: no problems with shots Site Selection: Patient is choosing appropriate sites: Thigh(s) (currently doing injection slightly above knee in the front of leg reviewed alternative locations.) Patient is rotating: appropriate Patient is discarding sharps: Safely DIABETES MEAL PLANNING: Type of meal planning: Consistent Carbohydrate Carbohydrate targets: 3 balanced meals daily with decreased frequency of snacking Follows meal plan: Greater than 75% of the time PRESENT MEAL PATTERN: Current eating habits:eats 3 meals plus snacks. Breakfast: 2 eggs with onion and cheese and 1 slice of toast with 1 cup of milk and water Lunch: 1-2 slices of bread with peanut butter and an apple or a can of soup Dinner: Balanced meal prepared by Snacks: currently trying hard not to snack between meals. Beverages: water and milk Alcohol: none reported PHYSICAL ACTIVITY: Type of exercise: chores around the house and in the yard Frequency per week: Daily Duration in minutes: 60 or more minutes BLOOD GLUCOSE MONITORING: Glucose monitoring: BID. With meter: One touch Barriers to monitoring: None Home Blood Glucoses Running: Pt did not bring meter but self reported the following results AM less than 150 PM usually around 160 HYPOGLYCEMIA MANAGEMENT: Hypoglycemic event: None reported Patient is carrying a source of rapid acting CHO: none Patient has a current supply of glucagon? No Patient is wearing Medic Alert: No STRESS MANAGEMENT/COPING SKILLS: Pt continues to express interest in working with a community therapist. ASSESSMENT: 55 yo male seen for follow up diabetes self management education. [facility]. Since last visit pt has started tanzeum and notes no changes in home blood glucose results. Review of injection practice shows inproper injection site. Pt continues to make efforts to improve diet and has significantly reduced total carbohydrate intake throughout the day specifically with breakfast and lunch and he continues to avoid snacks between meals. Pt expresses continued interest in connecting with a community therapistwill refer to T social work. 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 DIABETES SELF-MANAGEMENT EDUCATION: Engaged pt in conversation related to positive behavior change, self-management, goal setting and action planning using motivational interviewing and active listening. During this session we addressed the following topics: Recommended injection sites Healthy eating for improved glycemic control Benefit of physical activity Stress management techniques. Educational materials provided: none Method: verbal Taught to: Patient Barriers to education: no barriers Psychosocial, cultural, or economic barriers to care:other. 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 PATIENT'S PLAN: Follow up in 1 month ADDITIONAL INFORMATION FOR PROVIDER: reviewed injection site recommendations as pt was injecting slight above the knee. Current Visit Location: Dr. Batres Total Time: 60 Referral: none Follow up: Date: Tuesday, 2016 Time: 1 PM With: Linda Dudley Dietitian Location: [address] Status: Active Yael Blackburn RD 11/15/2016 11:17 documented in this encounter Plan of Treatment Not on file documented as of this encounter Visit Diagnoses Not on filedocumented in this encounter Care Teams Dethistler Operator Relationship Specialty Start Date End Date Jason Batres MD [address] [place] [address] PCP - General 07/27/11 12/31/23 documented as of this encounter
--- OUTSIDE RECORDS SUMMARY | 2024-02-28 16:54 | XMS_ITS | Encounter Summary ---
Author Organization [facility] Address [address] [place] [address] Care Team Providers Care Manager Market Development Name Role Phone Jason Batres MD Primary Care Provi margarita Reason for Visit * Reason Onset Date Comments Medications Refill 07/24/2016 Encounter Details Date Type Department Care Team (Late st Contact Info) Description 07/24/2016 Refill Jason Batres MD, PC [address] [place], [place] [phone] Jason Batres MD [address] [place] [phone] Medications Refill Social History Tobacco Use Types Packs/Day Years Used Date Smoking Tobacco: Never Smokeless Tobacco: Current Chew Alcohol Use Standard Drinks/Week Comments No [...] shopping? Answer Date of Assessment Author Yes 03/15/2016 8:44 EST documented as of this encounter Mental Status * Because of a physical, mental, or emotional condition, does this person have serious difficulty concentrating, remembering, or making decisions? Answer Entry Date Author Yes 03/15/2016 8:44 EST documented in this encounter Ordered Prescriptions Prescription Sig Dispense Quantity Refills Last Filled Start Date End Date levothyroxine (SYNTHROID) 112 mcg tablet Take 1 Tab by mouth daily. 90 Tab 1 07/24/2016 03/19/2017 documented in this encounter Plan of Treatment Not on file documented as of this encounter Visit Diagnoses Not on filedocumented in this encounter Discontinued Medications Medication Sig Discontinue Reason Start Date End Da te levothyroxine (SYNTHROID) 112 mcg tablet Take 1 Tab by mouth daily. Reorder 04/21/2015 07/24/2016 documented as of this encounter Care Teams Manager Market Development Relationship Specialty Start Date End Date Jason Batres MD [address] [place] [id number] PCP - General 07/27/11 12/31/23 documented as of this encounter
--- OUTSIDE RECORDS SUMMARY | 2024-02-28 16:54 | XMS_ITS | Encounter Summary ---
Author Organization [facility] Address [address] [place] [address] Care Team Providers Care Carpet Installer Name Role Phone Jason Batres MD Primary Care Provi margarita Reason for Visit * Reason Comments Follow-up Right 2nd toe Encounter Details Date Type Department Care Team (Late st Contact Info) Description 01/10/2017 8:30 EST Office Visit [facility] Foot & Ankle Program - [address] [address] Angelina Gonzales, [facility] [address] [place] [address] Skin ulcer of toe of right foot, limited to breakdown of skin ([facility]) ([facility]) (Primary Dx); Type 2 diabetes mellitus with diabetic polyneuropathy, with long-term current use of insulin ([facility]) (HCC-CMS) Social History Tobacco Use Types Packs/Day [...] - - Weight 126.1 kg (278 lb) 01/10/2017 0839 EST Height 188 cm (6' 2.02) 01/10/2017 0839 EST Body Mass Index 35.67 01/10/2017 0839 EST documented in this encounter Functional Status * Because of a physical, mental, or emotional condition, does this person have difficulty doing errands alone such as visiting a doctor's office or shopping? Answer Date of Assessment Author Yes 01/10/2017 8:39 EST documented as of this encounter Mental Status * Because of a physical, mental, or emotional condition, does this person have serious difficulty concentrating, remembering, or making decisions? Answer Entry Date Author Yes 01/10/2017 8:39 EST documented in this encounter Progress Notes * Angelina Gonzales DPM - 01/10/2017 0830 EST Jeff Scott is a very pleasant 56 y.o. male patient who presents for follow up right great toe ulcer. He believes it has been doing well. He has been changing the dressing daily as instructed. He has been allowing the toe air out at night. He did notice that he had some built-up callus in the area and picked at this and noticed some bleeding on the inside of the toe. This has since stopped. Over all he is doing well today. He denies any nausea, vomiting, fever, chills. He denies any pain in the toe. 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 Mr. Scott follows with endocrinology for the diabetes. He last saw them on 11/29/16. Patient Active Problem List Diagnosis Date Noted ??? Acute osteomyelitis of phalanx of foot (HCC) 03/23/2016 Priority: Medium ??? Hypothyroidism 01/22/2013 Priority: Medium ??? Osteoarthritis of left hip 07/06/2014 ??? 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 1 Each 0 ??? BYDUREON 2 mg/0.65 mL pen injector inject 2mg into the skin every 7 days 4 Each 3 ??? glimepiride (AMARYL) 4 mg tablet Take 1 Tab by mouth 2 times daily. 200 Tab 3 ??? ibuprofen (MOTRIN) 200 mg tablet Take 800 mg by mouth daily. ??? lancets Test BID. 100 Each 1 ??? levothyroxine (SYNTHROID) 112 mcg tablet Take 1 Tab by mouth daily. 90 Tab 1 ??? metFORMIN (GLUCOPHAGE) 500 mg tablet TAKE TWO TABLETS BY MOUTH TWICE DAILY 360 Tab 5 No current facility-administered medications for this visit. No Known Allergies Review of Systems A ten point review of systems was performed. Pertinent positives are listed below, all others are negative. Vital signs: height is 188 cm (74.02) and weight is 126.1 kg (278 lb) (abnormal). PHYSICAL EXAM: General: AO x 3, NAD Lower extremity:??Palpable pedal pulses. Skin temperature gradient within normal limits. Capillary filling time less than 3 seconds to toes 1, 3, 4, 5 on the R, 1-5 on the L. 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 Healed well. Ulcer plantar medial right great toe, measuring approximately 1 x 1??mm.??No probe to bone. No surrounding erythema or edema. No drainage, malodor, or necrosis. Hyperkeratotic surrounding skin. No pain on palpation. . Nails well groomed. ??Manual muscle testing 5 out of 5.??Protective sensation intact but diminished to toes. ASSESSMENT: 1. Skin ulcer of toe of right foot, limited to breakdown of skin (HCC) 2. Type 2 diabetes mellitus with diabetic polyneuropathy, with long-term current use of insulin (HCC) No orders of the defined types were placed in this encounter. PLAN: Mr. Scott presents today for follow-up right great toe ulcer this continues to slowly fill in. I debrided the surrounding hyperkeratotic tissue with a 15 blade, skin and subcutaneous tissue, less than 20 cm??. There are no signs of infection today. He is going to continue with the daily dressing changes and allow the toe air out at night. To continue with the insoles with a cut out to offload thearea. I advised him against picking at the callus as this can create a wound. I will see him back in 3-4 weeks. He knows to call before then if any problems arise and is happy with this plan. Portions of this document have been prepared with speech recognition software or keyboard big data solutions architect techniques. Minor irregularities or keyboarding misprints may be present documented in this encounter Plan of Treatment Not on file documented as of this encounter Visit Diagnoses Diagnosis Skin ulcer of toe of right foot, limited to breakdown of skin (HCC-CMS)- Primary Type 2 diabetes mellitus with diabetic polyneuropathy, with long-term current use of insulin ([facility]) documented in this encounter Care Teams Carpet Installer Relationship Specialty Start Date End Date Jason Batres MD [address] [place] [address] PCP - General 07/27/11 12/31/23 documented as of this encounter
--- OUTSIDE RECORDS SUMMARY | 2024-02-28 16:54 | XMS_ITS | Encounter Summary ---
Author Organization [facility] Address [address] [place] [address] Care Team Providers Care Power Plant Operations Manager Name Role Phone Jason Batres MD Primary Care Provi margarita Reason for Visit * Reason Onset Date Comments Other 09/11/2016 Encounter Details Date Type Department Care Team (Late st Contact Info) Description 09/11/2016 Telephone [facility] Foot & Ankle Program [place] [place] [address] Debby Licea LPN Other Social History Tobacco Use Types Packs/Day [...] 03/15/2016 8:44 EST documented in this encounter Miscellaneous Notes * Telephone Encounter - Debby Licea LPN - 09/11/2016 1522 EDT Phone call from Jeff today stating that on Sunday evening he was walking across the living room floor and made contact with the coffee table striking his right 4th toe . The impact loosened the toenail quite abit and Jeff finished removing the entire nail. He states that it bled very little, sohe washed The area and applied some Bacitracin ointment and a small dressing. His youngest son helped him with the dressing since his is in [place] visiting some of their family. Jeff says that his toe feels OK and it's not red or swollen at this time, and there's no abnormal discharge. I encourage him to keep using the Bacitracin ointment and change the dressing once daily. I also told Jeff that his son could send us a picture of his toe and Dr. Gonzales could view it and call him if she thinks that we may need to see him here in our office. Jeff will speak to his son regarding a picture. Jeff understands that if he notices any suspicious changes with his toe he needs to call our office right away. documented in this encounter Plan of Treatment Not on file documented as of this encounter Visit Diagnoses Not on filedocumented in this encounter Care Teams Power Plant Operations Manager Relationship Specialty Start Date End Date Jason Batres MD [address] [place] [id number] PCP - General 07/27/11 12/31/23 documented as of this encounter
--- OUTSIDE RECORDS SUMMARY | 2024-02-28 16:54 | XMS_ITS | Encounter Summary ---
Author Organization [facility] Address [address] [place] [address] Care Team Providers Care Conference Interpreter Name Role Phone Jason Batres MD Primary Care Provi margarita Reason for Visit * Reason Comments Follow-up right 2nd toe amp/ f eels good doesnt even think about it Encounter Details Date Type Department Care Team (Late st Contact Info) Description 08/08/2016 8:45 EDT Office Visit [facility] Foot & Ankle Program - [address] [address] Angelina Gonzales DPM [address] [place] [address] Type 2 diabetes mellitus with diabetic polyneuropathy, with long-term current use of insulin ([facility]) (Primary Dx); Status post amputation of toe of right foot ([facility]) Social History Tobacco Use Types Packs/Day Years [...] - Inhaled Oxygen Concentration - - Weight 126.6 kg (279 lb 1.6 oz) 08/08/2016 0840 EDT Height 188 cm (6' 2.02) 08/08/2016 0840 EDT Body Mass Index 35.82 08/08/2016 0840 EDT documented in this encounter Functional Status [...] 03/15/2016 8:44 EST documented in this encounter Progress Notes * Angelina Gonzales, BRENDA - 08/08/2016 0845 EDT Jeff Scott is a very pleasant 55 y.o. male patient who presents for follow up. He has been doingvery well. He has not had any issues with the feet. No pain in the toe. No wounds. He checks them fairly regularly after he showers. 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 His son also just graduated from [employer]. He follows with his pcp for his diabetes. Last saw them on 05/19. Blood sugars have been high. Patient Active Problem List Diagnosis Date Noted ??? Acute osteomyelitis of phalanx of foot 03/23/2016 Priority: Medium ??? Hypothyroidism 01/22/2013 Priority: Medium ??? Osteoarthritis of left hip 07/06/2014 ??? 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 Arthritis ??? Back pain ??? Diabetes mellitus ??? Hypothyroidism ??? Wears glasses Past Surgical [...] (FREESTYLE TEST) test strips 1 Strip by [facility] (non-drug; combo route) route 2 times daily 100 Each 1 ??? blood glucose meter (FREESTYLE FREEDOM LITE) Test FS BID. 1 Each 0 ??? dulaglutide (TRULICITY) 0.75 mg/0.5 mL pen injector Inject 0.75 mg into the skin every 7 days. (Patient not taking: Reported on 08/08/2016) 4 Syringe 11 ??? glimepiride (AMARYL) 2 mg tablet Take 2 Tabs by mouth 2 times daily. 120 Tab 5 ??? ibuprofen (MOTRIN) 200 mg tablet Take 200 mg by mouth every 6 hours ??? lancets Test BID. 100 Each 1 [...] is 188 cm (74.02) and weight is 126.6 kg (279 lb 1.6 oz) (abnormal). PHYSICAL EXAM: General: AO x 3, NAD Lower extremity: Palpable pedal pulses. Skin temperature gradient within normal limits. Capillary filling time less than 3 seconds to toes 1, 3, 4, 5 on the R, 1-5 on the L. 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 Healed well. No open lesions. No interdigital maceration. No pain on palpation. No edema to the foot. Protective sensation intact but diminished to toes. ASSESSMENT: 1. Type 2 diabetes mellitus with diabetic polyneuropathy, with long-term current use of insulin 2. Status post amputation of toe of right foot No orders of the defined types were placed in this encounter. PLAN: Mr. Scott presents today for follow up. He is doing very well. No pain in the feet and no ulcerative or pre ulcerative lesions. We reviewed the importance of checking his feet daily and showing any concerning areas to his Nguyen. Continue in supportive shoes. Follow up 3 months. Portions of this document have been prepared with speech recognition software or keyboard data warehouse administrator techniques. Minor irregularities or keyboarding misprints may be present documented in this encounter Plan of Treatment Not on file documented as of this encounter Visit Diagnoses Diagnosis Type 2 diabetes mellitus with diabetic polyneuropathy, with long-term current use of insulin ([facility])- Primary Status post amputation of toe of right foot ([facility]) Lower limb amputation, other toe(s) documented in this encounter Care Teams Conference Interpreter Relationship Specialty Start Date End Date Jason Batres MD [address] [place] [id number] PCP - General 07/27/11 12/31/23 documented as of this encounter
--- OUTSIDE RECORDS SUMMARY | 2024-02-28 16:54 | XMS_ITS | Encounter Summary ---
Author Organization [facility] Address [address] [place] [address] Care Team Providers Care Grant Administrator Name Role Phone Jason Batres MD Primary Care Provi margarita Encounter Details Date Type Department Care Team (Late st Contact Info) Description 06/22/2016 Community Health Team Jason Batres MD, PC [address] [place], [place] [phone] Yael Blackburn, RD [address] [place] [address] Social History Tobacco Use Types [...] Progress Notes * Yael Blackburn RD - 06/22/2016 2501 EDT Jeff Scott has been working with an RD from the [facility] Team. Called pt to schedule follow up visit for next week as his will be on vacation and he would like her to attend. Left voice message requesting pt call [facility] admin to schedule mid-day next if this time works for them. Dr. Batres Total Time: 10 minutes Referral: none Follow up: Admin team please call pt to schedule appointment for next week at 11am or 12pm Status: Active Thank you for this referral. Yael Blackburn RD, CD Clinical Dietitian, T documented in this encounter Plan of Treatment Not on file documented as of this encounter Visit Diagnoses Not on filedocumented in this encounter Care Teams Grant Administrator Relationship Specialty Start Date End Date Jason Batres MD [address] [place] [address] PCP - General 07/27/11 12/31/23 documented as of this encounter
--- OUTSIDE RECORDS SUMMARY | 2024-02-28 16:54 | XMS_ITS | Encounter Summary ---
Author Organization [facility] Address [address] [place] [address] Care Team Providers Care Painter And Decorator Name Role Phone Jason Batres MD Primary Care Provi margarita Reason for Visit * Reason Comments Community Health Team Encounter Details Date Type Department Care Team (Late st Contact Info) Description 07/24/2016 Community Health Team Jason Batres MD, PC [address] [place], [place] [phone] Odette Hector, [facility] [address] [place] [address] Social History Tobacco Use Types Packs/Day Years [...] Progress Notes * Odette Hector LICSW - 07/24/2016 5761 EDT LVM to follow up with Jeff regarding work. No return call. Dr. batres Total Time: 5min Status: Graduated [employer] documented in this encounter Plan of Treatment Not on file documented as of this encounter Visit Diagnoses Not on filedocumented in this encounter Care Teams Painter And Decorator Relationship Specialty Start Date End Date Jason Batres MD [address] [place] [id number] PCP - General 07/27/11 12/31/23 documented as of this encounter
--- OUTSIDE RECORDS SUMMARY | 2024-02-28 16:54 | XMS_ITS | Encounter Summary ---
Author Organization [facility] Address [address] [place] [address] Care Team Providers Care Tread Builder Name Role Phone Jason Batres MD Primary Care Provi margarita Reason for Visit * Reason Onset Date Comments Appointment Related 06/28/2016 Encounter Details Date Type Department Care Team (Late st Contact Info) Description 06/28/[address], [address] [place] [address] Cht, Admin Appointment Related Social History Tobacco Use Types [...] encounter Miscellaneous Notes * Telephone Encounter - Vanessa Adhikari - 06/28/2016 1319 EDT Pt called CHT to schedule RD appointment for 07/06 at [facility] documented in this encounter Plan of Treatment Not on file documented as of this encounter Visit Diagnoses Not on filedocumented in this encounter Care Teams Tread Builder Relationship Specialty Start Date End Date Jason Batres MD [address] [place] [id number] PCP - General 07/27/11 12/31/23 documented as of this encounter
--- OUTSIDE RECORDS SUMMARY | 2024-02-28 16:54 | XMS_ITS | Encounter Summary ---
Author Organization [facility] Address [address] [place] [address] Care Team Providers Care Surfboard Designer Name Role Phone Jason Batres MD Primary Care Provi margarita Reason for Visit * Reason Comments Diabetes * Consult (Routine) - Closed Specialty Diagnoses / Procedures Referred By [facility] Referred To Contact Endocrinology Diagnoses Type 2 diabetes mellitus without complication, unspecified computer terminal operator insulin use status Jason Batres MD Phone: tel: fax: [facility] Endocrinology - [address] [address] Phone: tel: fax: Referral ID Status Reason Start Date Expiration Date V isits Requested Visits Authorized [id number] Closed Specialty Services Required 10/17/2016 1 1 Encounter Details Date Type Department Care Team (Latest Contact Info) Description 11/29/2016 8:30 EDT Office Visit [facility] Endocrinology - [address] [address] Tre Ramos MD [address] [place] [address] [address] [place] [address] Type 2 diabetes mellitus with hyperglycemia, without long-term current use of insulin (CMS-HCC) (Primary Dx); Craniopharyngioma (CMS-HCC) (HCC-CMS); Acquired hypothyroidism Social History Tobacco Use Types Packs/Day Years [...] Sign Reading Time Taken Comments Blood Pressure 114/64 11/29/2016 08 EDT Pulse 79 11/29/2016 08 EDT Temperature - - Respiratory Rate - - Oxygen Saturation - - Inhaled Oxygen Concentration - - Weight 126.1 kg (278 lb) 11/29/2016 08 EDT Height 188 cm (6' 2.02) 11/29/2016 08 EDT Body Mass Index 35.68 11/29/2016 0838 EDT documented in this encounter Functional Status * Because of a physical, mental, or emotional condition, does this person have difficulty doing errands alone such as visiting a doctor's office or shopping? Answer Date of Assessment Author Yes 11/29/2016 8:48 EDT documented as of this encounter Mental Status * Because of a physical, mental, or emotional condition, does this person have serious difficulty concentrating, remembering, or making decisions? Answer Entry Date Author Yes 11/29/2016 8:48 EDT documented in this encounter Patient Instructions * Patient Instructions* Tre Ramos MD - 11/29/2016 8:30 EDT Check Blood Sugar: Before breakfast and two hours after a meal. Continue BYDUREON injection once each week Continue METFORMIN 2 tablets twice daily - large white And GLIMEPIRIDE 4 mgm twice daily - blue/green documented in this encounter Ordered Prescriptions Prescription Sig Dispense Quantity Refills Last Filled Start Date End Date glimepiride (AMARYL) 4 mg tablet Take 1 Tab by mouth 2 times daily. 200 Tab 3 11/29/2016 05/09/2017 documented in this encounter Progress Notes * Tre Ramos MD - 11/29/[address] [facility] Diabetes Initial Evaluation Note CHIEF COMPLAINT: Jeff Scott presents with 1. Type 2 diabetes mellitus with hyperglycemia, without long-term current use of insulin 2. Craniopharyngioma 3. 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 The record says craniopharyngioma But no endocrine sequellae Had uptitration of meds until 1 mo ago when weekly BYDUREON (once weekly exenitide) was added. Feels perhaps BS is better This was a very prolonged visit because of the patient's cognitive disability. Frequently simple instructions had to be repeated often. Diabetes He presents for his initial diabetic visit. He has type 2 diabetes mellitus. Onset time: unsure There are no hypoglycemic associated symptoms. Associated symptoms include polydipsia, polyuria and nocturia. Pertinent negatives for diabetes include no blurred vision, no fatigue, no foot paresthesias,no foot ulcerations, no polyphagia, no visual change, no weakness and no weight loss. Pertinent negatives for diabetic complications include no CVA, heart disease, nephropathy, peripheral neuropathy,PVD or retinopathy. Risk factors for coronary artery disease include family history. 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 Family history is reviewed and includes the following: unsure except for youger sister. Jeff Scott has a history of being in poor glycemic control. Patient has a history of being compliant most of the time with medical therapy. Patient's home regimen consists of has a current medication list which includes the following prescription(s): blood glucose, blood glucose meter, bydureon, glimepiride, ibuprofen, lancets, levothyroxine, and metformin. Prior [...] well. Skin: none. Cardiac: none. PHYSICAL EXAMINATION: Vitals: BP 114/64 Pulse 79 Ht 188 cm (74.02) Wt (!) 126.1 kg (278 lb) BMI 35.68 kg/m2 BMI: Body mass index is 35.68 kg/(m^2). Physical Exam General appearance - alert, well appearing, and in no distress, oriented to person, place, and timeand Not a very good historian Mental status - alert, oriented to person, place, and time, Confused at times Eyes - pupils equal and reactive, extraocular eye movements intact Neck - supple, no significant adenopathy, carotids [...] rashes, no suspicious skin lesions noted Funduscopic: no microaneurysms, exudates, hemorrhages or jey-vascularizations Feet: I find that he has intact monofilament today. 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 There is a ulcer under callous under the first metatarsal head which I have not undressed.I feel dorsalis pedis and posterior pulses but they are somewhat diminished had tip of second toe right for diabetes thing photos IN Dr KATZ'S NOTE LABS: Lab Results Component Value Date HGBA1C 12.1 (H) 11/29/2016 HGBA1C 10.4 (A) 10/16/2016 HGBA1C 10.1 (A) 05/18/2016 Lab Results Component Value Date CHOL 220 02/17/2016 HDL 42 02/17/2016 LDLBASE 146 02/17/2016 TRIG 159 02/17/2016 CHOLHDL 5.2 02/17/2016 Lab Results Component Value Date BUN 18 03/09/2016 CREATININE 0.72 03/09/2016 NA 142 03/09/2016 K 4.4 03/09/2016 Lab Results Component Value Date ALT 130 (H) 02/17/2016 Lab Results Component Value Date LABALBU 4.5 02/17/2016 ASSESSMENT/PLAN: 1. Type 2 diabetes mellitus with hyperglycemia, without long-term current use of insulin 2. Craniopharyngioma 3. Acquired hypothyroidism Because the difficulty with our conversation and the necessity to repeat instructions several timesI am uncertain as to whether the patient is able to give his Bydureon once a week without forgetting and I am also concerned that he may not be taking the proper dosing of his other medication. As far as the glimepiride is concerned I have received written a prescription for 4 mg twice a day and told him to get rid of any glimepiride he might have at home. Hopefully the metformin will be continued as ordered as will the Bydureon The best alternative that I can think of should this regimen fail would be something as simple as 1) bringing him into the physician's office for his weekly GLP 1 analog, and should this fail 2) twice a day premixed 7030 insulin As noted above the patient's lipids are not at target-I have not addressed this because I did not want to confuse him. However, it looks like he has no proteinuria, has a normal creatinine and is normotensive Attached please find my consult note with the full details of your patents' visit. Medications: Recommend aspirin daily. Insulin: Insulin stabilization is not yet required: Check Blood Sugar: Before breakfast and two hours after a meal. Continue BYDUREON injection once each week Continue METFORMIN 2 tablets twice daily - large white And GLIMEPIRIDE 4 mgm twice daily - blue/green Non-insulin: diet. Recommended: At this time KACEY inhibitor and statin therapy were not discussed but based on a previous LDL E probably need statin therapy. Glucose monitoring BID. Referred to diabetic education program. Referred to airline dispatcher no. Patient referred to eye home care manager rn for annual dilated eye exam. Lifestyle modifications: [...] HDL males >40 and females >50 mgm/dl Triglycerides fasting <150 mgm/dl *More or less stringent glycemic goals may [...] dose of a statin, is an option. I spent a total of 65 minutes in face to face time with this patient and 60 minutes of that time was spent in counseling and coordination of care as described in the progress note. Tre Ramos MD 11/29/2016 9:22 * Flores Sommer - 11/29/2016 0830 EDT Fingerstick blood sample obtained for POCT Hemoglobin A1C performed for this DOS at the order of Tre Ramos MD documented in this encounter Plan of Treatment Not on file documented as of this encounter Procedures Procedure Name Priority Date/Time Associated Diagnosis Comments POCT HEMOGLOBIN A1C, INTERFACED Routine 11/29/2016 9:01 EDT Type 2 diabetes mellitus with hyperglycemia, without long-term current use of insulin ([facility]) documented in this encounter Results * (ABNORMAL) POCT HEMOGLOBIN A1C (07/25/2017 9:29 EDT) Hemoglobin A1C, POC Interfaced 12.0(H) <5.7 % 07/25/2017 9:50 EDT [facility] newscast producer ID [id number] 07/25/2017 9:50 EDT [facility] Comment:Test performed at En docrinology Blood specimen (specimen) BLOOD SPECIMEN / Unknown 07/25/2017 9:29 EDT 07/25/2017 9:50 EDT Tre Ramos MD POINT OF CARE TEST ORDERAB LES Final Result Performing Organization Address [facility] Co de Phone Number [facility] [address] [place] [address] * (ABNORMAL) POCT HEMOGLOBIN A1C (11/29/2016 9:01 EDT) Pathologist [facility] Hemoglobin A1C, POC Interfaced 12.1(H) <5.7 % 11/29/2016 9:20 EDT [facility] newscast producer ID [id number] 11/29/2016 9:20 EDT [facility] Comment:Test performed at En docrinology Blood specimen (specimen) BLOOD SPECIMEN / Unknown 11/29/2016 9:01 EDT 11/29/2016 9:20 EDT Tre Ramos MD POINT OF CARE TEST ORDERAB LES Final Result Performing Organization Address [facility] Co de Phone Number [facility] [address] [place] [phone] documented in this encounter Visit Diagnoses Diagnosis Type 2 diabetes mellitus with hyperglycemia, without long-term current use of insulin (HCC-CMS)- Primary 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 03/14/2016 11/29/2016 documented as of this encounter Care Teams Surfboard Designer Relationship Specialty Start Date End Date Jason Batres MD [address] [place] [id number] PCP - General 07/27/11 12/31/23 documented as of this encounter
--- OUTSIDE RECORDS SUMMARY | 2024-02-28 16:54 | XMS_ITS | Encounter Summary ---
Author Organization [facility] Address [address] [place] [address] Care Team Providers Care Taker Down Name Role Phone Jason Batres MD Primary Care Provi margarita Encounter Details Date Type Department Care Team (Late st Contact Info) Description 08/29/2016 Community Health Team [facility] Family Medicine [address] [id number] Yael Blackburn, RD [address] [place] [address] Social History Tobacco Use Types [...] Progress Notes * Yael Blackburn RD - 08/29/2016 1521 EDT Pt no showed appointment scheduled with [facility] CDE. Left voice message for pt to call [facility] admin to reschedule missed appointment. Dr. Batres Total Time: 5 minutes Referral: none Follow up: Admin team please call pt to reschedule Status: Active Thank you for this referral. Yael Blackburn RD, CD Clinical Dietitian, [facility] documented in this encounter Plan of Treatment Not on file documented as of this encounter Visit Diagnoses Not on filedocumented in this encounter Care Teams Taker Down Relationship Specialty Start Date End Date Jason Batres MD [address] [place] [address] PCP - General 07/27/11 12/31/23 documented as of this encounter
--- OUTSIDE RECORDS SUMMARY | 2024-02-28 16:54 | XMS_ITS | Encounter Summary ---
Author Organization [facility] Address [address] [place] [address] Care Team Providers Care Trip Follower Name Role Phone Jason Batres MD Primary Care Provi margarita Reason for Visit * Reason Comments Diabetes Encounter Details Date Type Department Care Team (Late st Contact Info) Description 07/07/2016 Community Health Team Jason Batres MD, PC [address] [place], [place] [phone] Yael Blackburn, RD [address] [place] [address] Social History Tobacco Use Types [...] this encounter Progress Notes * Yael Blackburn, RD - 07/07/2016 1701 EDT [facility] Team Nuclear Weapons Mechanical Specialist Follow-up Visit Name:Jeff Scott Today's Date: 07/07/2016 Date of visit: 07/07/2016 SUBJECTIVE: Jeff Scott is a 55 y.o. male initially referred to the [facility] Team for diabetes self-management education by Dr. Batres. Jeff was last seen on 03/07/16 and returns today for a follow-up [facility] CDE visit at [address], [place] accompanied by alone. This is the third encounter. Patient is excited about starting a new job at [employer] in [place]. He reports that he is enjoying his work and finds it rewarding and energizing. Patient discussed what his typical meals have looked like recently and expresses a need to reduce the amount of bread that he eats in a day. He also states that he tends to eat a lot of chips and, although he knows is eating too many of them, has difficulty controlling his portions. Patient reports thathe will often delay or skip lunch because he feels that if he takes a break from a task he???s working on, he won???t return to his work after eating. Patient discusses increased frequency of visits to help reinforce goals and concepts, and to create more accountability. OBJECTIVE: Diabetes type: Type 2 Vitals: There were no vitals taken for this visit. BMI: There is no height or weight on file to calculate BMI. LABORATORY RESULTS: A1c: Lab Results Component Value Date HGBA1C 10.1 (A) 05/18/2016 HGBA1C 10.0 (A) 02/17/2016 HGBA1C 10.3 11/26/2015 DIABETES MEDICATIONS: Current AntiDiabetic Medications 03/14/2016 05/18/2016 dulaglutide (subcutaneous) - 0.75 MG Q7 DAYS (0.75 mg/0.5 mL pnij) sitaGLIPtin (oral) 50 MG DAILY Discontinued glimepiride (oral) 4 MG BID 4 MG BID metFORMIN (oral) TAKE TWO TABLETS BY MOUTH TWICE DAILY (500 mg tab) TAKE TWO TABLETS BY MOUTH TWICEDAILY (500 mg tab) DIABETES MEAL PLANNING: Type of meal planning: Consistent Carbohydrate Carbohydrate targets: 1-3 servings of carbohydrate with each meal Follows meal plan: Greater than 75% of the time PRESENT MEAL PATTERN: Comments: Poor meal frequency often skips lunch but will have a large breakfast and dinner. Good portion control at dinner with support from . Current eating habits:large meals and skips meals. Breakfast: 1 cup of rice chex with milk, 1 banana and 2 slices of toast with butter Lunch: skips most days but might have a large portion of chips and salsa (pt states he eats a lot of chips) Dinner: Balanced meal with lean protein vegetables and starch Snacks: chips and salsa Beverages: water Alcohol: none reported PHYSICAL ACTIVITY: Type of exercise: walking and pt started working where he is on his feet all day Frequency per week: 3-4 times/week Duration in minutes: 60 or more minutes BLOOD GLUCOSE MONITORING: Glucose monitoring: QD. With meter: One touch Barriers to monitoring: None Home Blood Glucoses Running: patient forgot to bring HBG readings. HYPOGLYCEMIA MANAGEMENT: Hypoglycemic event: none reported Patient is carrying a source of rapid acting CHO: none Patient has a current supply of glucagon? No Patient is wearing Medic Alert: No STRESS MANAGEMENT/COPING SKILLS: Pt is working with Odette Hector [facility] Social work ASSESSMENT: Patient is energetic and willing to discuss ideas with regards to managing his diabetes and controlling blood glucose. Based on his dietary recall, his breakfast, which includes cereal, milk, toast, and a banana, appears to consist of around 6 carb servings. In order to reduce his carbs at breakfast time and create more even spacing of carbohydrate intake throughout the day, patient discussed alternative breakfast options. Alternative options include eating the cereal with milk and ?? a banana OR eating toast with peanut butter and ?? a banana. Additionally, patient discussed eating an egg sandwich at breakfast which was encouraged as it provides a variety of protein, fat, and carbohydrates. Patient discussed focusing on his breakfast goal over the next two weeks. Patient will follow up in two weeks to report progress regarding his breakfast and to discuss any additional concerns and/orgoals. DIABETES SELF-MANAGEMENT EDUCATION: Engaged pt in conversation related to positive behavior change, self-management, goal setting and action planning using motivational interviewing and active listening. During this session we addressed the following topics: Educational materials provided: meal suggestions Method: verbal Taught to: Patient Barriers to education: other Psychosocial, cultural, or economic barriers to care:none. Outcomes: Pt verbalized understanding Stage of Change: Preparation DIABETES SELF-MANAGEMENT RECOMMENDATIONS: - improve meal frequency by including 3 balanced meals daily - continue with increased physical activity PATIENT IDENTIFIED GOALS: Eat lunch daily and make breakfast more balanced by decreasing total amount of carbohydrate PATIENT'S PLAN: Follow up with RD in 2 weeks. ADDITIONAL INFORMATION FOR PROVIDER: pt is open to working with Endocrinology at the [facility]. This will benefit pt in that he will not have to travel to [facility]. Current Visit Location: Dr. Batres Total Time: 60 minutes Referral: none Follow up: Date: July Time: 2:30 PM With: Linda Dudley Dietitian Location: [address] Status: Active Yael Blackburn RD 07/07/2016 17:01 documented in this encounter Plan of Treatment Not on file documented as of this encounter Visit Diagnoses Not on filedocumented in this encounter Care Teams Trip Follower Relationship Specialty Start Date End Date Jason Batres MD [address] [place] [address] PCP - General 07/27/11 12/31/23 documented as of this encounter
--- OUTSIDE RECORDS SUMMARY | 2024-02-28 16:54 | XMS_ITS | Encounter Summary ---
Author Organization [facility] Address [address] [place] [address] Care Team Providers Care Service Center Manager Name Role Phone Jason Batres MD Primary Care Provi margarita Reason for Visit * Reason Comments Diabetes Encounter Details Date Type Department Care Team (Late st Contact Info) Description 07/27/2016 Community Health Team Jason Batres MD, PC [address] [place], [place] [address] Yael Blackburn, RD [address] [place] [address] Social History Tobacco Use Types [...] Progress Notes * Yael Blackburn, RD - 07/27/2016 0585 EDT [facility] Team Office Auditor Follow-up Visit Name:Jeff Scott Today's Date: 08/02/2016 Date of visit: 07/27/2016 SUBJECTIVE: Jeff Scott is a 55 y.o. male initially referred to the [facility] Team for diabetes self-management education by No ref. provider found. Jeff was last seen on 07/07/16 and returns today for afollow-up CHT CDE visit at [facility], [address] [place] [address]. [address], [place] accompanied by alone. This is the fifth encounter. Jeff continues to be very happy with work experience. States that home blood glucose readings haveimproved since starting work and states that he feels that he is making healthier food options. Pt states that he thinks he should decrease the amount of condiments that he is using throughout the day including salad dressing, gabriel and ketchup. 24-hour recall: Breakfast: egg sandwich on 1 slice of bread with 2 eggs and vegetables and a lot of ketchup and gabriel or 2 cups of rice chex with 1 cup of milk and a 1/2 banana Lunch: egg sandwich with pretzels Dinner: balanced meal with portion control assisted by Snacks: 1/2 of a banana if left over from breakfast or an apple Beverages: water and milk Alcohol: none reported Pt is trying to reduce portion size at breakfast and has been working to decrease frequency of snacks focusing primarily on chips and salsa. OBJECTIVE: Diabetes type: Type 2 Vitals: There [...] 3 balanced meals daily Follows meal plan: Greater than 75% of the time PHYSICAL ACTIVITY: Type of exercise: at work is very active lifting and walking Frequency per week: 3 days/week Duration in minutes: 4 hours BLOOD GLUCOSE MONITORING: Glucose monitorin-2 times daily. With meter: One touch Barriers to monitoring: None Home Blood Glucoses Runnin/25 am 158 07/26 pm 164 07/26 am 112 Pt reports improved blood glucose since starting work did not bring meter or logs but committed to bringing these to next visit. HYPOGLYCEMIA MANAGEMENT: Hypoglycemic event: none reported Patient is carrying a source of rapid acting CHO: none Patient has a current supply of glucagon? No Patient is wearing Medic Alert: No STRESS MANAGEMENT/COPING SKILLS: Pt reports improved stress management and coping skills with new work routine. PT continues to get support from [facility] social work. ASSESSMENT: 55 yo male referred for diabetes education. A1c at last check was 10.1 in June up slightly from anaic of 10 in February. Pt notes improved home blood glucose readings but did not bring meter or logs to confirm this. Pt continues to be motivated and excited about new work experience and notes improved overall health as a result of this experience. Pt has modified portion size at breakfast to decrease total carbohydrate at am meal and has been making a greater effort to have a small lunch. Pt has decreased frequency and portion size of snacks throughout the day primarily by eliminated corn chips with salsa. Pt has not established a routine for physical activity but notes greater activity onwork days and has been focusing on yard work to stay active on off days. DIABETES SELF-MANAGEMENT EDUCATION: Engaged pt in conversation related to positive behavior change, self-management, goal setting and action planning using motivational interviewing and active listening. During this session we addressed the following topics: Continued education on healthy eating for improved glycemic control Benefit of physical activity on improving blood glucose Reviewed methods to improve portion control Educational materials provided: none Method: verbal Taught to: Patient Barriers to education: other Psychosocial, cultural, or economic barriers to care:none. Outcomes: Pt verbalized understanding Stage of Change: Action DIABETES SELF-MANAGEMENT RECOMMENDATIONS: - continue with portion control at meals - decrease total portion of condiments used with meals - continue to work towards increased activity. PATIENT IDENTIFIED GOALS: Decrease portion size of condiments used to decrease total calorie intake PATIENT'S PLAN: Follow up in 2 weeks. Current Visit Location: Dr. Batres Total Time: 60 minutes Referral: none Follow up: Date: August Time: 2 PM With: Yael Blackburn Registered Dietitian Location: [address] Status: Active Yael Blackburn RD 08/02/2016 11:48 documented in this encounter Plan of Treatment Not on file documented as of this encounter Visit Diagnoses Not on filedocumented in this encounter Care Teams Service Center Manager Relationship Specialty Start Date End Date Jason Batres MD [address] [place] [address] PCP - General 07/27/11 12/31/23 documented as of this encounter
--- OUTSIDE RECORDS SUMMARY | 2024-02-28 16:54 | XMS_ITS | Encounter Summary ---
Author Organization [facility] Address [address] [place] [address] Care Team Providers Care Sales Training Representative Name Role Phone Jason Batres MD Primary Care Provi margarita Reason for Visit * Reason Comments Diabetes Encounter Details Date Type Department Care Team (Late st Contact Info) Description 10/11/2016 Community Health Team Jason Batres MD, PC [address] [place], [place] [phone] Yael Blackburn, RD [address] [place] [address] Social History Tobacco Use Types [...] Progress Notes * Yael Blackburn, RD - 10/11/2016 2793 EDT Images from the original note were not included. [facility] Team Jewelry Mechanic Follow-up Visit Name:Jeff Scott Today's Date: 10/12/2016 Date of visit: 10/11/2016 SUBJECTIVE: Jeff Scott is a 55 y.o. male initially referred to the Community Health Team for diabetes self-management education by No ref. provider found. Jeff was last seen on 08/18/16 and returns today for a follow-up CHT CDE visit at [facility] accompanied by alone. This is the sixth encounter. Jeff States that he has finished his work experience but was not hired as an employee. Pt reports that there might be something when the kids return to school but since he has interviewed for work at [employer] but wasn't too happy with the hours. Pt states that he has been working hard to eat healthier by not doing snacks and having smaller portions. Pt states that he recently finished his prescription of januvia but was not able to get trulicity due to insurance coverage. OBJECTIVE: Diabetes type: Type 2 Vitals: There were no vitals taken for this visit. BMI: There is no height or weight on file to calculate BMI. LABORATORY RESULTS: A1c: Lab Results Component Value Date HGBA1C 10.1 (A) 05/18/2016 HGBA1C 10.0 (A) 02/17/2016 HGBA1C 10.3 11/26/2015 DIABETES MEDICATIONS: Current AntiDiabetic Medications 03/14/2016 05/18/2016 dulaglutide (subcutaneous) - 0.75 MG Q7 DAYS (0.75 mg/0.5 mL pnij)* sitaGLIPtin (oral) 50 MG DAILY Discontinued glimepiride (oral) 4 MG BID 4 MG BID metFORMIN (oral) TAKE TWO TABLETS BY MOUTH TWICE DAILY (500 mg tab) TAKE TWO TABLETS BY MOUTH TWICEDAILY (500 mg tab) * Patient has reported taking this medication differently or not taking at all. Pt has finished Januvia but was not able to get Trulicity due to insurance coverage issue. Pt is currently only taking metformin and glimepiride and is taking them as noted above. DIABETES MEAL PLANNING: Type of meal plannin meals/day with focus on balance and decrease portion size Carbohydrate targets: small portions of foods containing carbohydrate Follows meal plan: 50% to 75% of the time PRESENT MEAL PATTERN: Comments: Pt states more emphasis on portion control and decreased frequency of snacks throughout the day. Current eating habits:eats 3 meals plus snacks. Breakfast: 1/2 banana with 1.5 cups of rice chex and splash of milk Lunch: 1 slice of bread with peanut butter and an apple or tortilla chips with salsa Dinner: meat potato and vegetables Snacks: sometimes peanuts Beverages: water Alcohol: none reported PHYSICAL ACTIVITY: Type of exercise: none Pt does do work around the yard BLOOD GLUCOSE MONITORING: Glucose monitoring: BID. With meter: One touch Barriers to monitoring: None Home Blood Glucoses Running: Pt did not bring logs from recall he notes AM Blood glucose 131-148 and PM blood glucose around 161 HYPOGLYCEMIA MANAGEMENT: Hypoglycemic event: none reported Patient is carrying a source of rapid acting CHO: none Patient has a current supply of glucagon? No Patient is wearing Medic Alert: No STRESS MANAGEMENT/COPING SKILLS: Pt reports appropriate stress management/coping skills. 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 ASSESSMENT: 55 yo male seen today for diabetes education follow up. Pt has seen endocrinology at [facility] since our last visit but scanned note did not contain hemoglobin a1c. Dr. Segundo states that Mr. Garcia diabetes is under excellent control despite a1c of 9.4 retrieved from nurse at Endocrinology at [facility] please see note. Pt has finished Januvia but was not able to get Trulicity so has decreased his medication. Contacted Dr. Batres requesting change in order to allow for insurance coverage. Pt did not bring logs to this visit but was able to recall average blood glucose results from morning and evening. Encouraged him to bring logs to our next visit. DIABETES SELF-MANAGEMENT EDUCATION: Engaged pt in conversation related to positive behavior change, self-management, goal setting and action planning using motivational interviewing and active listening. During this session we addressed the following topics: Reviewed healthy eating Importance of taking medications as ordered and discussed following up with Dr. Batres Benefit of physical activity. Educational materials provided: None Method: verbal Taught to: Patient Barriers to education: no barriers Psychosocial, cultural, or economic barriers to care:none. Outcomes: Pt verbalized understanding Stage of Change: Preparation DIABETES SELF-MANAGEMENT RECOMMENDATIONS: - contact Dr. Batres to get prescription for GLP-1 covered by insurance - continue with efforts to decrease frequency of snacks and to control portion size at meals. - Bring blood glucose logs to follow up visit PATIENT IDENTIFIED GOALS: - get in touch with Dr. Batres for medications PATIENT'S PLAN: Follow up in 1 month or sooner if education is needed on injectable medication. ADDITIONAL INFORMATION FOR PROVIDER: please see note- have included a1c results from [facility], self reported blood glucose readings and discussion on confusion regarding his medications. Current Visit Location: Dr. Batres Total Time: 60 minutes Referral: none Follow up: Date: Tuesday, November 15, 2016 Time: 10:30 AM With: Linda Dudley Dietitian Location: [address] Status: Active Yael Blackburn RD 10/12/2016 13:12 documented in this encounter Plan of Treatment Not on file documented as of this encounter Visit Diagnoses Not on filedocumented in this encounter Care Teams Sales Training Representative Relationship Specialty Start Date End Date Jason Batres MD [address] [place] [address] PCP - General 07/27/11 12/31/23 documented as of this encounter
--- OUTSIDE RECORDS SUMMARY | 2024-02-28 16:54 | XMS_ITS | Encounter Summary ---
Author Organization [facility] Address [address] [place] [address] Care Team Providers Care Medical Observer Name Role Phone Jason Batres MD Primary Care Provi margarita Encounter Details Date Type Department Care Team (Late st Contact Info) Description 06/02/2016 Documentation Visit [facility] Memory Program - Medical Office Building [address] [place], [place] [phone] Sebastian Sheehan, PhD [address] [facility] Medical Office Building, [address] [place] [address] Social History Tobacco Use Types Packs/Day Years [...] documented in this encounter Progress Notes * Jessica Greene - 06/02/2016 1005 EDT Received request from [facility] with Release of Information. The following information was mailed: Sissy: Neuropsychological Evaluation Note 09/15/2011 To the following address: [facility] Attention: Gabrielle Goff [address] [place] [address], [address] [place] [address] documented in this encounter Plan of Treatment Not on file documented as of this encounter Visit Diagnoses Not on filedocumented in this encounter Care Teams Medical Observer Relationship Specialty Start Date End Date Jason Batres MD [address] [place], [place] [phone] PCP - General 07/27/11 12/31/23 documented as of this encounter
--- OUTSIDE RECORDS SUMMARY | 2024-02-28 16:54 | XMS_ITS | Encounter Summary ---
Author Organization [facility] Address [address] [place] [address] Care Team Providers Care Dining Room Host/Hostess Name Role Phone Jason Batres MD Primary Care Provi margarita Reason for Visit * Reason Comments Pre-op Exam Encounter Details Date Type Department Care Team (Late st Contact Info) Description 03/20/2016 10:30 EST Office Visit Jason Batres MD, PC [address] [place], [place] [phone] Carmelita Hogue, ECHO TECHNOLOGIST [address] [place] [address] Pre-op evaluation (Primary Dx); Acute osteomyelitis of right foot (CMS-HCC) Social History Tobacco Use Types Packs/Day Years [...] Sign Reading Time Taken Comments Blood Pressure 116/60 03/20/2016 1049 EST Pulse 97 03/20/2016 1049 EST Temperature 37.1 ??C (98.7 ??F) 03/20/2016 1049 EST Respiratory Rate 16 03/20/2016 1049 EST Oxygen Saturation 97% 03/20/2016 1049 EST Inhaled Oxygen Concentration - - Weight [...] 03/15/2016 8:44 EST documented in this encounter Patient Instructions * Patient Instructions* Carmelita Hogue APRN - 03/20/2016 10:30 EST Do not take metformin, glimepiride, or januvia the morning of surgery. Do not take any nsaids (ibuprofen, aleve, advil) prior to surgery (starting now) It is ok to take tylenol if needed documented in this encounter Progress Notes * Carmelita Hogue APRN - 03/20/2016 1030 EST Preoperative H&P Date of Service: 03/21/2016 Chief Complaint: Chief Complaint Patient presents with ??? Pre-op Exam Planned Procedure: Right foot 2nd toe amputation Surgeon: Dr. Gonzales Planned Procedure Date: 03/23/16 Problem List Available or Initiated: yes HISTORY OF PRESENT ILLNESS: Jeff Scott is a 55 y.o., male, Jeff dropped a block of firewood onto his right foot and sustained a right toe wound. Over the course of two weeks the wound was not healing and became red and painful. He went to the ED on March 09 and had xrays concerning for osteomyelitis. He had a culture which revealed MSSA, he was originally treated with keflex then transitioned to Augmentin per ID recommendations. He saw orthopedics last week who recommended a partial toe amputation, which is scheduled for this week. He has a history of diabetes and neuropathy. ?? Prior h/o of anesthetic complications no Prior h/o bleeding problems no Prior h/o DVT/PE no Cardiovascular or pulmonary risk factors: Diabetes Mellitus Active Problem List Patient Active Problem List Diagnosis ??? Late effect of intracranial injury ??? Craniopharyngioma ??? Memory loss due to medical condition ??? Hypothyroidism ??? Osteoarthritis of left hip PMH PSH Past Medical History Diagnosis Date ??? Arthritis ??? Back pain ??? Diabetes mellitus ??? Hypothyroidism ??? Wears glasses Past Surgical History Procedure Laterality Date ??? Brain surgery s/p tumor ??? Eye surgery Social History Family history Social History Substance Use Topics ??? Smoking status: Never Smoker ??? Smokeless tobacco: Current User Types: Chew ??? Alcohol use No Family History Problem Relation Age of Onset ??? Stroke Mother 71 ??? Cancer Father 65 lung cancer Medications Current Outpatient Prescriptions Medication Sig Dispense Refill ??? amoxicillin-clavulanate (AUGMENTIN) 875-125 mg per tablet Take 1 Tab by mouth 2 times daily for14 days. 28 Tab 0 ??? blood glucose (FREESTYLE TEST) test strips 1 Strip by misc (non-drug; combo route) route 2 times daily 100 Each 1 ??? blood glucose meter (FREESTYLE FREEDOM LITE) Test FS BID. 1 Each 0 ??? glimepiride (AMARYL) 2 mg tablet Take [...] BY MOUTH TWICE DAILY 360 Tab 5 ??? sitaGLIPtin (JANUVIA) 50 mg tablet Take 1 Tab by mouth daily. 90 Tab 3 No current facility-administered medications for this visit. Allergies No Known Allergies Review of systems Negative Positive Details Constitutional X Cardiovascular X Respiratory X Gastrointestinal X Genitourinary X GUNCOTTON PACKER X Musculoskeletal X Neurological X Memory impairment Psychiatric X Hematological/Lymphatic X Endocrine X Diabetes, last A1C 10%, on oral medications Eyes X Ears,nose, mouth,throat, X Integumentary X MSSA right second toe, on Augmentin Allergic/Immunologic X PHYSICAL EXAMINATION: Visit Vitals ??? BP 116/60 ??? Pulse 97 ??? Temp 37.1 ??C (98.7 ??F) (Tympanic) ??? Resp 16 ??? SpO2 97% , There is no height or weight on file to calculate BMI. Organ system Negative Positive Not examined Details Constitution/General x EENT & Mouth x Neck/Thyroid x Skins,nodes, glands x Respiratory x Heart x Peripheral Vascular x Breasts and Axillae x Abdomen x Scrotum/testes x Pelvic x Rectal x Musculoskeletal x Neurologic x Recent Labs: Lab Results Component Value Date SERGLU 233 (H) 03/09/2016 HGBA1C 10.0 (A) 02/17/2016 Lab Results Component Value Date CREATININE 0.72 03/09/2016 BUN 18 03/09/2016 NA 142 03/09/2016 K 4.4 03/09/2016 CL 103 03/09/2016 CO2 25 03/09/2016 CALCIUM 9.7 03/09/2016 CALCCA 9.5 03/09/2016 Lab Results Component Value Date TBIL 0.7 02/17/2016 ALKPHOS 73 02/17/2016 AST 124 (H) 02/17/2016 ALT 130 (H) 02/17/2016 Lab Results Component Value Date CHOL 220 02/17/2016 TRIG 159 02/17/2016 HDL 42 02/17/2016 LDLBASE 146 02/17/2016 CHOLHDL 5.2 02/17/2016 Lab Results Component Value Date TSH 2.16 02/17/2016 FREET4 1.3 02/25/2013 ECG: NSR, no ST changes IMPRESSION: Jeff is a 55 year old male with no known ASCVD, scheduled for low CV risk procedure. He has a history of diabetes, his A1C last month was high at 10%, however he was taking his metforminincorrectly. His blood glucose in the office today after breakfast is acceptable at 140. Revised Cardiac Risk Index: 0 Risk of major postoperative cardiac complication: 0.4% PLAN: Jeff is ok to proceed with surgery as planned. He was instructed to hold his oral diabetic medications the morning of surgery. He was also instructed not to take any nsaids 7 days prior to surgery. Thank you for asking me to consult on this very nice gentleman. Carmelita Hogue, ECHO TECHNOLOGIST 03/21/2016 10:06 Revised Cardiac Risk Index How many variables does the patient have?* Risk of major postoperative cardiac complication??? 0 0.4% 1 0.9% 2 7.0% >=3 11.0% * Variables are high-risk type of surgery, ischemic heart disease (includes any of the following: history of myocardial infarction, history of a positive exercise test, current complaint of chest pain that is considered to be secondary to myocardial ischemia, use of nitrate therapy, or electrocardiography with pathologic Q waves), congestive heart failure, and history of cerebrovascular disease, preoperative treatment with insulin, and preoperative serum creatinine >2.0 mg/dL. Patients with more than 2 variables have a postoperative cardiac complication rate of ~10% and are considered to be high risk. ??? The major cardiac complications included myocardial infarction, pulmonary edema, ventricular fibrillation or primary cardiac arrest, and complete heart block. Adapted from [place] TH, Terrie ER, Ozzy CM, et al. Derivation and prospective validation of asimple index for prediction of cardiac risk of major noncardiac surgery. Circulation 1999; 100:3532-2695 (87). documented in this encounter Plan of Treatment Not on file documented as of this encounter Procedures Procedure Name Priority Date/Time Associated Diagnosis Comments ECG REPORT - SCANNED (REGIONAL) 04/06/2016 13:28 EST documented in this encounter Results * ECG REPORT - SCANNED (REGIONAL) (04/06/2016 13:28 EST) 04/06/2016 13:2 8 EST us Scan 2 Sample Box Maker PROCEDURE/MINOR SURGICAL OR DERABLES Final Result documented in this encounter Visit Diagnoses Diagnosis Pre-op evaluation- Primary Preoperative examination, unspecified Acute osteomyelitis of right foot (HCC-CMS) Acute osteomyelitis, ankle and foot documented in this encounter Care Teams Dining Room Host/Hostess Relationship Specialty Start Date End Date Jason Batres MD [address] [place] [address] PCP - General 07/27/11 12/31/23 documented as of this encounter
--- OUTSIDE RECORDS SUMMARY | 2024-02-28 16:54 | XMS_ITS | Encounter Summary ---
Author Organization [facility] Address [address] [place] [address] Care Team Providers Care Dining Room Server Name Role Phone Jason Batres MD Primary Care Provi margarita Reason for Visit * Reason Onset Date Comments Medications Refill 03/20/2017 Encounter Details Date Type Department Care Team (Late st Contact Info) Description 03/20/2017 Refill Jason Batres MD, PC [address] [place], [place] [phone] Jason Batres MD [address] [place] [phone] Medications Refill Social History Tobacco Use [...] shopping? Answer Date of Assessment Author Yes 02/07/2017 8:52 EST documented as of this encounter Mental Status * Because of a physical, mental, or emotional condition, does this person have serious difficulty concentrating, remembering, or making decisions? Answer Entry Date Author Yes 02/07/2017 8:52 EST documented in this encounter Ordered Prescriptions Prescription Sig Dispense Quantity Refills Last Filled Start Date End Date exenatide microspheres (BYDUREON) 2 mg/0.65 mL pen injector Inject 2 mg into the skin once a week. 4 Each 3 03/20/2017 05/09/2017 documented in this encounter Plan of Treatment Not on file documented as of this encounter Visit Diagnoses Not on filedocumented in this encounter Discontinued Medications Medication Sig Discontinue Reason Start Date End Da te BYDUREON 2 mg/0.65 mL pen injector inject 2mg into the skin every 7 days Reorder 11/24/2016 03/20/2017 documented as of this encounter Care Teams Dining Room Server Relationship Specialty Start Date End Date Jason Batres MD [address] [place] [address] PCP - General 07/27/11 12/31/23 documented as of this encounter
--- OUTSIDE RECORDS SUMMARY | 2024-02-28 16:54 | XMS_ITS | Encounter Summary ---
Author Organization [facility] Address [address] [place] [address] Care Team Providers Care French Polisher Name Role Phone Jsaon Batres MD Primary Care Provi margarita Reason for Visit * Reason Onset Date Comments Appointment Related 03/19/[address] Encounter Details Date Type Department Care Team (Late st Contact Info) Description 03/19/[address], [address] [place], [place] [phone] Cht, Admin Appointment Related (CHT RD) Social History Tobacco Use Types Packs/Day Years [...] 02/07/2017 8:52 EST documented in this encounter Miscellaneous Notes * Telephone Encounter - Sasha Ruiz - 03/19/2017 0127 EST Pt called CHT to reschedule with CHT RD. Patient is scheduled to see RD on 03.27.17 at 9AM at [facility]. documented in this encounter Plan of Treatment Not on file documented as of this encounter Visit Diagnoses Not on filedocumented in this encounter Care Teams French Polisher Relationship Specialty Start Date End Date Jason Batres MD [address] [place] [address] PCP - General 07/27/11 12/31/23 documented as of this encounter
--- OUTSIDE RECORDS SUMMARY | 2024-02-28 16:54 | XMS_ITS | Encounter Summary ---
Author Organization [facility] Address [address] [place] [address] Care Team Providers Care Customer Support Advisor Name Role Phone Jason Batres MD Primary Care Provi margarita Reason for Visit * Reason Comments Follow-up Right great toe ulce r Encounter Details Date Type Department Care Team (Late st Contact Info) Description 02/07/2017 8:45 EST Office Visit [facility] Foot & Ankle Program - [address] [address] Angelina Gonzales [facility] [address] [place] [address] Ulcer of great toe, right, with unspecified severity (CMS-HCC) ([facility]) (Primary Dx); Type 2 diabetes mellitus with diabetic polyneuropathy, with long-term current use of insulin ([facility]) Discharge Disposition: Auto Discharge Social History Tobacco [...] - - Weight 126.1 kg (278 lb) 02/07/2017 0853 EST Height 157.5 cm (5' 2.02) 02/07/2017 0853 EST Body Mass Index 50.81 02/07/2017 0853 EST documented in this encounter Functional Status [...] 02/07/2017 8:52 EST documented in this encounter Discharge Diagnoses Diagnosis L97.519 Non-pressure chronic ulcer of other part of right foot with unspecified severity-L97.519[ICD-10-CM] documented in this encounter Ordered Prescriptions Prescription Sig Dispense Quantity Refills Last Filled Start Date End Date amoxicillin-clavula cuba (AUGMENTIN) 875-125 mg per tablet Take 1 Tab by mouth every 12 hours for 10 days. 20 Tab 02/07/2017 02/17/2017 documented in this encounter Discharge Disposition Disposition Code Departure Means Destination Auto Discharge documented in this encounter Progress Notes * Angelina Gonzales DPM - 02/07/2017 0845 EST Images from the original note were not included. Jeff Scott is a very pleasant 56 y.o. male patient who presents for follow up right great toe ulcer. He reports that he has been doing well. Within the past week he noticed a blister around the ulcer however. He presses some numbness and noticed some pus came out. He also notes that the toe was a little red and swollen. It is a little tender but he is not really knows any increased pain in thetoe. He has been more active at work and has not been wearing the shoes with the offloading pad. Overall he is feeling well today and denies any nausea, vomiting, fever, chills. Patient Active Problem List Diagnosis Date Noted ??? Acute osteomyelitis of phalanx of foot ([facility]) 03/23/2016 Priority: Medium ??? Hypothyroidism 01/22/2013 Priority: Medium ??? Osteoarthritis of left hip 07/06/2014 ??? 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 Arthritis ??? Back pain ??? Diabetes mellitus (CMS-HCC) ??? Hypothyroidism ??? Wears glasses Past Surgical [...] negative. Vital signs: height is 157.5 cm (62.02) and weight is 126.1 kg (278 lb) [...] plantar medial right great toe, measuring approximately 2 x 2??mm.??No probe to bone. Hyperkeratotic surrounding skin. Blister dorsal and distal to this, with connection to the ulcer. Seropurulent drainage expressed. Mild. No malodor. No probe to bone here. Mild surrounding erythema and edema. Mild pain on palpation. Nails well groomed. ??Manual muscle testing 5 out of 5.??Protective sensation intact but diminished to toes. After debridement: ASSESSMENT: 1. Ulcer of great toe, right, with unspecified severity (CMS-HCC) BACTERIAL CULTURE/SMEAR, OTHER Other Orders Placed This Visit Procedures ??? Bacterial Culture/Smear, Other PLAN: Mr. Scott presents today for follow-up right great toe ulcer. He has developed a blister dorsal anddistal to the original ulcer with some purulent drainage and mild surrounding erythema. Concerning for infection. No probe to bone however. Mr. Scott is also feeling well systemically. I debrided theskin and subcutaneous tissue, less than 20 cm??, with a 15 blade. I took a swab culture of the pus. Underlying ulcers do not probe to bone. I am going to start him on an antibiotic today and this wasordered. He is going to pick it up today and started. I will change antibiotic as needed once culture results come back. He is going to change her dressing daily with antibiotic ointment and a gauze dressing. I gave him some new supplies today. We did discuss that this will likely continue to recurif he continues to be on his feet a lot for work. 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 He is going tobring his shoes with him that he wears work to his next visit so we can make some adjustments to make sure they are fitted properly. Encouraged him to elevate the foot and rest the foot when he can. He is aware of signs of worsening infection and knows to call or report to ED immediately if any concern, otherwise I will see him back in 1-2 weeks. I did write out the instructions for him today so that he can remember. Portions of this document have been prepared with speech recognition software or keyboard datacap developer techniques. Minor irregularities or keyboarding misprints may be present documented in this encounter Plan of Treatment Not on file documented as of this encounter Procedures Procedure Name Priority Date/Time Associated Diagnosis Comments BACTERIAL CULTURE/SMEAR Routine 02/07/2017 9:30 EST Ulcer of great toe, right, with unspecified severity (CMS-HCC) ([facility]) documented in this encounter Results * BACTERIAL CULTURE/SMEAR, OTHER (02/07/2017 9:30 EST) Gram Smear Result No polys seen 02/07/2017 18:45 EST [facility] Gram Smear Result Many Mixed gram positive organisms seen 02/07/2017 18:45 EST [facility] Result Mixed gram positive and gram negative organisms 02/09/2017 11:58 EST [facility] Result Smear suggests minimal or no inflammation. 02/09/2017 11:58 EST [facility] Specimen of unknown material (specimen) FLUID / Unknown 02/07/2017 9:30 EST 02/07/2017 17:36 EST Comment:Specimen submitted o n a flocked swab. us Angelina Gonzales DPM MICROBIOLOGY - GENERAL ORDERABL ES Final Result [facility] [address] [place] [address] documented in this encounter Visit Diagnoses Diagnosis Ulcer of great toe, right, with unspecified severity ([facility])- Primary Type 2 diabetes mellitus with diabetic polyneuropathy, with long-term current use of insulin ([facility]) documented in this encounter Care Teams Customer Support Advisor Relationship Specialty Start Date End Date Jason Batres MD [address] [place] [id number] PCP - General 07/27/11 12/31/23 documented as of this encounter
--- OUTSIDE RECORDS SUMMARY | 2024-02-28 16:54 | XMS_ITS | Encounter Summary ---
Author Organization [facility] Address [address] [place] [address] Care Team Providers Care Language Asst Name Role Phone Jason Batres MD Primary Care Provi margarita Reason for Visit * Reason Onset Date Comments Pre-op Exam 03/15/2016 Encounter Details Date Type Department Care Team (Latest Contact Info) Description 03/15/2016 Pre-Procedure Orders Encounter [facility] Foot & Ankle Program - [address] [place] [address] Debby Licea LPN Acute osteomyelitis of phalanx of foot, unspecified laterality ([facility]) (Primary Dx) Social History Tobacco Use Types Packs/Day Years Used Date Smoking Tobacco: Never Alcohol Use Standard Drinks/Week Comments No 0 [...] 03/15/2016 8:44 EST documented in this encounter Plan of Treatment Not on file documented as of this encounter Visit Diagnoses Diagnosis Acute osteomyelitis of phalanx of foot, unspecified laterality ([facility])- Primary documented in this encounter Care Teams Language Asst Relationship Specialty Start Date End Date Jason Batres MD [address] [place] [address] PCP - General 07/27/11 12/31/23 documented as of this encounter
--- OUTSIDE RECORDS SUMMARY | 2024-02-28 16:54 | XMS_ITS | Encounter Summary ---
Author Organization [facility] Address [address] [place] [address] Care Team Providers Care Last Cleaner Name Role Phone Jason Batres MD Primary Care Provi margarita Reason for Visit * Reason Onset Date Comments Appointment Related 08/31/[address] Encounter Details Date Type Department Care Team (Late st Contact Info) Description 08/31/[address], [address] [place], [place] [id number] [facility], Admin Appointment Related ([facility] RD) Social [...] * Telephone Encounter - Sasha Ruiz - 08/31/2016 1155 EDT LVM inviting pt to call [facility] to reschedule 08.29.17 no show apt with [facility] RD. documented in this encounter Plan of Treatment Not on file documented as of this encounter Visit Diagnoses Not on filedocumented in this encounter Care Teams Last Cleaner Relationship Specialty Start Date End Date Jason Batres MD [address] [place] [address] PCP - General 07/27/11 12/31/23 documented as of this encounter
--- OUTSIDE RECORDS SUMMARY | 2024-02-28 16:54 | XMS_ITS | Encounter Summary ---
Author Organization [facility] Address [address] [place] [address] Care Team Providers Care Jumpbasting Canvas Baster Name Role Phone Jason Batres MD Primary Care Provi margarita Reason for Visit * Reason Comments Follow-up Right Foot Encounter Details Date Type Department Care Team (Late st Contact Info) Description 10/25/2016 8:30 EDT Office Visit [facility] Foot & Ankle Program - [address] [address] Angelina Gonzales, [facility] [address] [place] [address] Ulcer of toe, right, limited to breakdown of skin ([facility]) (Primary Dx); Type 2 diabetes mellitus with diabetic polyneuropathy, with long-term current use of insulin ([facility]) Social History Tobacco Use Types Packs/Day Years [...] - Inhaled Oxygen Concentration - - Weight 122 kg (269 lb) 10/25/2016 0832 EDT Height 188 cm (6' 2.02) 10/25/2016 0832 EDT Body Mass Index 34.52 10/25/2016 0832 EDT documented in this encounter Functional Status * Because of a physical, mental, or emotional condition, does this person have difficulty doing errands alone such as visiting a doctor's office or shopping? Answer Date of Assessment Author Yes 10/25/2016 8:32 EDT documented as of this encounter Mental Status * Because of a physical, mental, or emotional condition, does this person have serious difficulty concentrating, remembering, or making decisions? Answer Entry Date Author Yes 10/25/2016 8:32 EDT documented in this encounter Progress Notes * Angelina Gonzales DPM - 10/25/2016 0830 EDT Images from the original note were not included. Jeff Scott is a very pleasant 55 y.o. male patient who presents for follow up high risk diabeticfoot care. He presents today a month earlier than his scheduled follow-up due to concerned of a newwound to the right great toe. He notes that he stubbed the right great toe on a foosball table whenhe got up in the middle the night to go to the bathroom. He had a callus here in the skin flap thathe noticed after hitting it. He pulled the skin flap away. He has been putting bacitracin and a gauze on the area and cleaning it with a wound cleanser prior to putting the dressing on. He denies anypain or drainage from the toe. He denies any redness to the toe. Overall he is feeling well and denies any nausea, vomiting, fever, chills. Mr. Scott is diabetic. His last HbA1c done in May was 10.1. He follows with his primary care doctor for this and last saw them on 10/16/2016. Patient Active Problem List Diagnosis Date Noted [...] BID. 1 Each 0 ??? exenatide microspheres 2 mg/0.65 mL pen injector Inject 2 mg into the skin every 7 days. 4 Each0 ??? glimepiride (AMARYL) 2 mg tablet Take [...] is 188 cm (74.02) and weight is 122 kg (269 lb) (abnormal). PHYSICAL EXAM: General: AO x 3, NAD Lower extremity:??Palpable pedal pulses. Skin temperature gradient within normal limits. Capillary filling time less than 3 seconds to toes 1, 3, 4, 5 on the R, 1-5 on the L. 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 Healed well. Ulcer plantar medial right great toe, as below. No probe to bone. No surrounding erythema or edema. No drainage, malodor, or necrosis. Hyperkeratotic surrounding skin. No pain on palpation. No open or pre ulcerative lesions left foot. Nails well groomed. Protective sensation intact but diminished to toes. ASSESSMENT: 1. Ulcer of toe, right, limited to breakdown of skin 2. Type 2 diabetes mellitus with diabetic polyneuropathy, with long-term current use of insulin No orders of the defined types were placed in this encounter. PLAN: Mr. Sena presents today with a new wound on his right great toe after stubbing the toe. The wound is superficial with no signs of infection. I did lightly pair down the surrounding hyperkeratotic tissue. He is going to continue with the dressing changes with antibiotic ointment and gauze. We discussed not soaking the wound. He is going to continue to keep it clean and covered. He is also going to wear the surgical shoe when at home and doing light activities. It is okay for him to wear his steel toed boots as needed for heavier activities. We did discuss that the more he is able to rest it, the faster the wound will heal. I will see him back in 2 weeks. He is aware of signs of infection and knows to call or report to ED immediately if any concern. He is happy with this plan and knows to call with any questions. Portions of this document have been prepared with speech recognition software or keyboard voice and data technician techniques. Minor irregularities or keyboarding misprints may be present documented in this encounter Plan of Treatment Not on file documented as of this encounter Visit Diagnoses Diagnosis Ulcer of toe, right, limited to breakdown of skin ([facility])- Primary Type 2 diabetes mellitus with diabetic polyneuropathy, with long-term current use of insulin ([facility]) documented in this encounter Care Teams Jumpbasting Canvas Baster Relationship Specialty Start Date End Date Jason Batres MD [address] [place] [address] PCP - General 07/27/11 12/31/23 documented as of this encounter
--- OUTSIDE RECORDS SUMMARY | 2024-02-28 16:54 | XMS_ITS | Encounter Summary ---
Author Organization [facility] Address [address] [place] [address] Care Team Providers Care Certified Technician Specialist Name Role Phone Jason Batres MD Primary Care Provi margarita Reason for Visit * Reason Onset Date Comments Medications Refill 03/19/2017 Encounter Details Date Type Department Care Team (Late st Contact Info) Description 03/19/2017 Refill Jason Batres MD, [facility] [address] [place], [place] [phone] Jason Batres MD [address] [place] [phone] Medications Refill Social History Tobacco Use [...] BY MOUTH ONE TIME DAILY 90 Tab 03/19/2017 05/18/2017 documented in this encounter Plan of Treatment Not on file documented as of this encounter Visit Diagnoses Not on filedocumented in this encounter Discontinued Medications Medication Sig Discontinue Reason Start Date End Da te levothyroxine (SYNTHROID) 112 mcg tablet TAKE ONE TABLET BY MOUTH ONE TIME DAILY Reorder 03/19/2017 03/19/2017 documented as of this encounter Care Teams Certified Technician Specialist Relationship Specialty Start Date End Date Jason Batres MD [address] [place] [address] PCP - General 07/27/11 12/31/23 documented as of this encounter
--- OUTSIDE RECORDS SUMMARY | 2024-02-28 16:54 | XMS_ITS | Encounter Summary ---
Author Organization [facility] Address [address] [place] [address] Care Team Providers Care Nurse Discharge Name Role Phone Jason Batres MD Primary Care Provi margarita Reason for Visit * Reason Comments Community Health Team Encounter Details Date Type Department Care Team (Late st Contact Info) Description 05/15/2016 Community Health Team Jason Batres MD, [facility] [address] [place] [address] Odette Hector, [facility] [address] [place] [address] Social History Tobacco Use Types Packs/Day Years [...] in this encounter Progress Notes * Odette Hector, COMPUTING MACHINE OPERATOR - 05/15/2016 3915 EDT Community Health Team Social Work Follow Up Visit Date of visit: 05/15/2016 Social Work follow up with Jeff Scott for connecting to community supports, original referral from Terry Batres MD. This is the 2nd encounter. SUBJECTIVE: Reviewed assessment and plan from previous visit with pt. Jeff states All I want to do is work. OBJECTIVE: Comment(s): Jeff engages easily in conversation, asks to review some material for clarity. Maintains eye contact. Becomes teary at times when discussing his life and some frustrations. TOPIC OF CONVERSATION: Engaged patient in conversation related to positive behavior change, self- management, goal setting and action planning using motivational interviewing and active listening. Jeff missed the last appointment with this SW having gone to [facility] instead. He talks about his process for remembering appointments (writes on chalk board in kitchen). Spent much of the appointment discussing meaning in his life. He frequently gets stuck feeling judged by others. Discussed his negative thought patterns.Spent time discussing how his life is different since his surgery. Discussed strain in his marriage. Jeff feels guilty that his is the primary bread winner. He struggles with letting his be a part of his medical care however recognizes it would be beneficial for his to be at meetings with the RD. Wrote down question of whether he and his could schedule an appointment with Yung during his school vacation. He feels being able to work, get out of his home and have a purpose through employment would improvement all aspects of his life, including his marriage. Jeff is meeting with his [facility] worker, Gabrielle next week. They have discussed the amount he is able to earn while still maintaining his benefits. 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 STAGE OF CHANGE: Action PATIENT IDENTIFIED GOALS: Find part-time employment while maintaining his disability benefits. PLAN: Meeting with [facility] on 05/24/16. ADDITIONAL INFORMATION FOR PROVIDER: Patient's Primary Care Site: Dr. Batres Total Time: 70 min face to face Referral: No new Follow up: Date: Sunday, June 19, 2016 Time: 9 AM With: Odette Hector Target Trimmer Location: [address], [place] Status: Active JG Ray documented in this encounter Plan of Treatment Not on file documented as of this encounter Visit Diagnoses Not on filedocumented in this encounter Care Teams Nurse Discharge Relationship Specialty Start Date End Date Jason Batres MD [address] [place] [id number] PCP - General 07/27/11 12/31/23 documented as of this encounter
--- OUTSIDE RECORDS SUMMARY | 2024-02-28 16:54 | XMS_ITS | Encounter Summary ---
Author Organization [facility] Address [address] [place] [address] Care Team Providers Care Focusing Machine Operator Name Role Phone Jason Batres MD Primary Care Provi amrgarita Reason for Visit * Reason Comments Follow-up toe amp right foot Encounter Details Date Type Department Care Team (Latest Contact Info) Description 03/31/2016 15:00 EST Post-op Visit [facility] - [address] [address] Angelina Gonzales, [facility] [address] [place] [address] Acute osteomyelitis of right foot ([facility]) (Primary Dx); Type 2 diabetes mellitus with diabetic neuropathy, without long-term current use of insulin ([facility]) Social History Tobacco Use Types Packs/Day Years [...] Oxygen Concentration - - Weight 120.2 kg (264 lb 15.9 oz) 03/31/2016 1435 EST Height 188 cm (6' 2.02) 03/31/2016 1435 EST Body Mass Index 34.01 03/31/2016 1435 EST documented in this encounter Functional Status [...] this encounter Progress Notes * Angelina Gonzales, DPCarol - 03/31/2016 1500 EST HPI: Jeff Scott is a 55 y.o. male patient who presents for follow up 1 week status post right foot partial second toe amputation, date of surgery 03/23/2016. He states that he has been doing well postoperatively. He has had little pain. He did have to take some ibuprofen the first day postoperatively but otherwise has not needed it. The dressing has fallen off a couple times and he has had to changes. He notes that his neighbor changed it, leaving the yellow Xeroform dressing in place and only changes the outer dressing. It has not gotten wet at all. He has been wearing the surgical shoe at all times. He has been limiting his activities at home and has not been going for his long walks. He hasbeen taking the antibiotics as instructed. He notes he still has some left. He denies nausea, vomiting, fever, chills. He presents today alone. He notes his is here but she is waiting for him inthe waiting room. He would like to have instructions written to give her today so that he can make sure he is doing all the right things postoperatively. Review of Systems A ten point review of systems was performed. Pertinent positives are listed below, all others are negative. Vital signs: height is 188 cm (74.02) and weight is 120.2 kg (264 lb 15.9 oz) (abnormal). PHYSICAL EXAM: General: AO x 3, NAD Lower extremity: RLE: Palpable pedal pulses. Skin temperature gradient within normal limits. Capillary filling time less than 3 seconds to toes 1, 3, 4, 5. Status post partial second toe amputation. Sutures intact and in place with skin well coapted. No necrosis. No malodor. No drainage. There is an abrasion dorsally and plantarly around the toe, proximal to the incision site, which was noted preoperatively due to the tight coban bandage. This seems to have formed a small, dried hematoma. The toe is blanchable and there is no erythema. The abrasion on the third toe has resolved. There is no pain on palpation. No edema to the foot. Protective sensation intact. ASSESSMENT: 1. Acute osteomyelitis of right foot 2. Type 2 diabetes mellitus with diabetic neuropathy, without long-term current use of insulin No orders of the defined types were placed in this encounter. PLAN: 1. 1 week s/p right foot partial 2nd toe amputation (03/23/16) -Incision site well coapted. No necrosis along the incision site. There is a dried hematoma dorsally and plantarly in the areas of where the abrasions from the tight bandage were noted in the operating room. I had discussed this with his postoperatively, and she notes that she had placed the dressings. The toe does appear to be viable, however and is blanchable with good capillary filling time. He has palpable pulses and his blood flow intra operatively was good. Also no concern for infection. We will need to continue to closely monitor this, however. Loose, dry dressing applied. Cem bandage applied. Stockinette applied. He is going to keep this clean dry and intact until his next follow-up appointment in 1 week. We did discuss that if it needs changed because it falls off again, to apply a loose dressing, and he has instructions for this, and his neighbor or will do it for him. He is going to continue limited weightbearing in the surgical shoe. He is going to finish his antibiotics which she has at home. We discussed that he does not need to take the pain medication if heis not having any pain. He is also going to continue with elevation. Instructions were written for him and his . Encouraged him to call us if he has any questions before his follow-up appointmentin 1 week. Reviewed the importance of him taking his diabetes medications and effects of blood glucose control and wound healing. Also reviewed path results with him- clean margins obtained. Portions of this document have been prepared with speech recognition software or keyboard teradata solution architect techniques. Minor irregularities or keyboarding misprints may be present documented in this encounter Plan of Treatment Not on file documented as of this encounter Visit Diagnoses Diagnosis Acute osteomyelitis of right foot (HCC-CMS)- Primary Acute osteomyelitis, ankle and foot Type 2 diabetes mellitus with diabetic neuropathy, without long-term current use of insulin ([facility]) documented in this encounter Care Teams Focusing Machine Operator Relationship Specialty Start Date End Date Jason Batres MD [address] [place] [address] PCP - General 07/27/11 12/31/23 documented as of this encounter
--- OUTSIDE RECORDS SUMMARY | 2024-02-28 16:54 | XMS_ITS | Encounter Summary ---
Author Organization [facility] Address [address] [place] [address] Care Team Providers Care Peer Health Promoter Name Role Phone Jason Batres MD Primary Care Provi margarita Encounter Details Date Type Department Care Team (Late st Contact Info) Description 2016 [facility] Team [facility] Primary Care [address] [facility] Floor [place], [place] [id number] Yael Blackburn, RD [address] [place] [address] Social History Tobacco Use Types [...] Answer Date of Assessment Author Yes 11/29/2016 11:10 EDT documented as of this encounter Mental Status * Because of a physical, mental, or emotional condition, does this person have serious difficulty concentrating, remembering, or making decisions? Answer Entry Date Author Yes 11/29/2016 11:10 EDT documented in this encounter Progress Notes * Yael Blackburn, RD - 2016 3234 EDT Images from the original note were not included. [facility] Health Team Management Expert Follow-up Visit Name:Jeff Scott Today's Date: 12/14/2016 Date of visit: 2016 SUBJECTIVE: Jeff Scott is a 56 y.o. male initially referred to the [facility] Health Team for diabetes self-management education by No ref. provider found. Jeff was last seen on 11/17/16 and returns today for a follow-up CHT CDE visit at [address], [place] accompanied by alone. This is the eighth encounter. 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 Pt states that hehas been good about his medication but sometimes will take it on Sunday rather than Sunday. Pt reports that he continues to make efforts to eat healthier but still sometimes doesn't eat much for lunch or will skip it if too busy. Pt notes that he has adjusted injection site based on visual provided at last visit highlighting appropriate injection sites. OBJECTIVE: Diabetes type: Type 2 Vitals: There were no vitals taken for this visit. BMI: There is no height or weight on file to calculate BMI. LABORATORY RESULTS: A1c: Lab Results Component Value Date HGBA1C 12.1 (H) 11/29/2016 HGBA1C 10.4 (A) 10/16/2016 HGBA1C 10.1 (A) 05/18/2016 DIABETES MEDICATIONS: Current AntiDiabetic Medications 11/24/2016 11/29/2016 exenatide microspheres (subcutaneous) inject 2mg into the skin every 7 days (2 mg/0.65 mL pnij) inject 2mg into the skin every 7 days (2 mg/0.65 mL pnij) dulaglutide (subcutaneous) - - albiglutide (subcutaneous) - - sitaGLIPtin (oral) - - glimepiride (oral) 4 MG BID* 4 MG BID metFORMIN (oral) TAKE TWO TABLETS BY MOUTH TWICE DAILY (500 mg tab) TAKE TWO TABLETS BY MOUTH TWICEDAILY (500 mg tab) * Patient has reported taking this medication differently or not taking at all. CURRENT INSULIN PROGRAM: Pt is taking exenatide as ordered above but does note some missed doses on the 7th day which he will correct on the eighth day INJECTIONS: Patient reports that: Other injectables: exenatide Injection Technique: Patients reports: no problems with shots Site Selection: Patient is choosing appropriate sites: thigh(s) Patient is rotating: appropriate Patient is discarding sharps: Safely DIABETES MEAL PLANNING: Type of meal planning: Consistent Carbohydrate Carbohydrate targets: 3 balanced meals daily Follows meal plan: 25% to 50% of the time PRESENT MEAL PATTERN: Current eating habits:eats 3 meals plus snacks and pt is skipping lunch 2-3 times each week and meals are not always balanced with exception of dinner. Breakfast: egg sandwich with 2-3 eggs cheese and onion on toast or an wallisian muffin has cut back on gabriel and ketchup Lunch: 1/2 of a peanut butter sandwich or chips with salsa Dinner: balanced meal prepared by pt has started to limit seconds will only allow seconds on non starchy vegetables. Snacks: chips with salsa Beverages: pt states that he has started drinking regular soda more regularly states that he just gets a craving and will stop and grab a 2-liter bottle of rootbeer and drink it throughout the day. Alcohol: none reported PHYSICAL ACTIVITY: Type of exercise: jobs around the yard Frequency per week: daily Duration in minutes: 60 or more minutes [...] reports appropriate stress management/coping skills. ASSESSMENT: Jeff is a 56 yo male originally referred for diabetes self management education. Pt continues to work towards improved glycemic control and has made some changes to diet despite continued increase in hemoglobin a1c. Pt recently started exenatide but has struggled with consistent use of medication as ordered (every 7 days). Pt states that he was having trouble getting the needle stay in after review it was determined that he wasn't pulling the cap off but rather twisting it off. Food intake continues to be irregular with some missed meals throughout the day, often the mid day meal. Pt has started drinking regular soda much more regularly. Despite changes in medications including starting bydureon little change to blood glucose. Fasting blood glucose is consistently greater than 130. DIABETES SELF-MANAGEMENT EDUCATION: Engaged pt in conversation related to positive behavior change, self-management, goal setting and action planning using motivational interviewing and active listening. During this session we addressed the following topics: Reviewed administration instruction video for exenatide with pt. Discussed the benefit of healthy eating to improve glycemic control. Encouraged increase in structured physical activity. Educational materials provided: none Method: verbal and demonstration Taught to: Patient Barriers to education: other Psychosocial, cultural, or economic barriers to care:none. Outcomes: Pt verbalized understanding Stage of Change: Preparation DIABETES SELF-MANAGEMENT RECOMMENDATIONS: - decrease intake of regular soda to no more than 1 each week. - include a serving of vegetable with breakfast PATIENT IDENTIFIED GOALS: - decrease intake of soda by trying diet because he notes will likely not stop drinking soda all together. PATIENT'S PLAN: Follow up in 1 month ADDITIONAL INFORMATION FOR PROVIDER: Pt reported some confusion with bydureon injections including how to remove the cap before injection. I reviewed a demonstration video with pt and he seems to better understand that rather than twisting cap you need to pull it off. Will continue to meet for blood glucose reviews. Current Visit Location: Dr. Batres Total Time: 60 minutes Referral: none Follow up: Date: Tuesday, January 17, 2017 Time: 11 AM With: Linda Dudley Dietitifredy Location: [address] Status: Active Yael Blackburn RD 12/14/2016 11:09 documented in this encounter Plan of Treatment Not on file documented as of this encounter Visit Diagnoses Not on filedocumented in this encounter Care Teams Peer Health Promoter Relationship Specialty Start Date End Date Jason Batres MD [address] [place] [address] PCP - General 07/27/11 12/31/23 documented as of this encounter
--- OUTSIDE RECORDS SUMMARY | 2024-02-28 16:54 | XMS_ITS | Encounter Summary ---
Author Organization [facility] Address [address] [place] [address] Care Team Providers Care Junior Analyst Name Role Phone Jason Batres MD Primary Care Provi margarita Reason for Visit * Reason Comments Follow-up Right foot Encounter Details Date Type Department Care Team (Late st Contact Info) Description 11/29/2016 10:30 EDT Office Visit [facility]le Program - [address] [address] Angelina Gonzales, [facility] [address] [place] [address] Ulcer of toe, right, limited to breakdown of skin ([facility]) (Primary Dx); Type 2 diabetes mellitus with diabetic polyneuropathy, with long-term current use of insulin ([facility]) Social History Tobacco Use Types Packs/Day Years [...] - Weight 126.1 kg (278 lb) 11/29/2016 1110 EDT Height 188 cm (6' 2.02) 11/29/2016 1110 EDT Body Mass Index 35.67 11/29/2016 1110 EDT documented in this encounter Functional Status [...] Progress Notes * Angelina Gonzales, DPM - 11/29/2016 1030 EDT Images from the original note were not included. Jeff Scott is a very pleasant 55 y.o. male patient who presents for follow up right great toe ulcer. He believes it is doing well. He has been changing the dressing daily. He has been wearing the shoes with a cut out the insert and has not had any issues with them. He is following with endocrine for his diabetes. He last saw them today. His latest hemoglobin A1c was 12. Patient Active Problem List Diagnosis Date Noted [...] right great toe, measuring approximately 1 x 2 mm.??No probe to bone. No surrounding erythema or edema. No drainage, malodor, or necrosis. Hyperkeratotic surrounding skin. No pain on palpation. No open or pre ulcerative lesions left foot. Nails well groomed. Manual muscle testing 5 out of 5. No pain with manual muscle testing. No pain with compression of the right calf. No increased skin temperature here. Very minimal increased edema compared to the left lower extremity. No pain with range of motion of the ankle. Protective sensation intact but diminished to toes. ASSESSMENT: 1. Ulcer of toe, right, limited to breakdown of skin 2. Type 2 diabetes mellitus with diabetic polyneuropathy, with long-term current use of insulin No orders of the defined types were placed in this encounter. PLAN: Mr. Scott presents today for follow-up right great toe wound. This is healing well with the offloading padding. He is going to continue to wear the shoes. To continue with the daily dressing changes.Okay to air the toe out at night. I will see him back in 1 month. He knows to call before then if any problems arise and is happy with this plan. Portions of this document have been prepared with speech recognition software or keyboard data base design analyst techniques. Minor irregularities or keyboarding misprints may be present documented in this encounter Plan of Treatment Not on file documented as of this encounter Visit Diagnoses Diagnosis Ulcer of toe, right, limited to breakdown of skin (HCC-CMS)- Primary Type 2 diabetes mellitus with diabetic polyneuropathy, with long-term current use of insulin ([facility]) documented in this encounter Care Teams Junior Analyst Relationship Specialty Start Date End Date Jason Batres MD [address] [place] [id number] PCP - General 07/27/11 12/31/23 documented as of this encounter
--- OUTSIDE RECORDS SUMMARY | 2024-02-28 16:54 | XMS_ITS | Encounter Summary ---
Author Organization [facility] Address [address] [place] [address] Care Team Providers Care Custom Shop Worker Name Role Phone Jason Batres MD Primary Care Provi margarita Alexus De La O RN [facility] Internal Medicine, Primary Care Provi margarita Reason for Visit * Reason Comments Other Encounter Details Date Type Department Care Team (Late st Contact Info) Description 11/24/2016 Refill Jason Batres MD, PC [address] [place] [address] Jason Batres MD [address] [place] [phone] Other Social History Tobacco Use Types [...] shopping? Answer Date of Assessment Author Yes 11/24/2016 8:30 EDT documented as of this encounter Mental Status * Because of a physical, mental, or emotional condition, does this person have serious difficulty concentrating, remembering, or making decisions? Answer Entry Date Author Yes 11/24/2016 8:30 EDT documented in this encounter Ordered Prescriptions Prescription Sig Dispense Quantity Refills Last Filled Start Date End Date BYDUREON 2 mg/0.65 mL pen injector inject 2mg into the skin every 7 days 4 Each 3 11/24/2016 03/20/2017 documented in this encounter Plan of Treatment Not on file documented as of this encounter Visit Diagnoses Not on filedocumented in this encounter Discontinued Medications Medication Sig Discontinue Reason Start Date End Da te exenatide microspheres 2 mg/0.65 mL pen injector Inject 2 mg into the skin every 7 days. Reorder 10/20/2016 11/24/2016 documented as of this encounter Additional Health Concerns Infection Onset Date Last Indicated Resolved Time R/O COVID-19 Comment:Negative swab 12/22/2020 12/22/2020 12/22/2020 021 7:17 EDT R/O COVID-19 Comment:Negative 02/17/2022 02/17/2022 02/18/2022 7:30 EST Rule-Out C. difficile 02/25/2022 02/25/20222021 12:00 EST R/O COVID-19 04/09/2022 04/09/2022 04/09/2022 16:3 2 EST documented as of this encounter Care Teams Custom Shop Worker Relationship Specialty Start Date End Date Jason Batres MD [address] [place] [address] PCP - General 07/27/11 12/31/23 [facility] Internal [facility], [address] [place] [address] PCP - General 01/01/24 Alexus De La O, fruit i farmworker 04/18/22 08/13/23 documented as of this encounter
--- OUTSIDE RECORDS SUMMARY | 2024-02-28 16:54 | XMS_ITS | Encounter Summary ---
Author Organization [facility] Address [address] [place] [address] Care Team Providers Care Marketing Communications Associate Name Role Phone Jason Batres MD Primary Care Provi margarita Reason for Referral * Consult (Routine) - Closed Specialty Diagnoses / Procedures [facility] Referred To Contact Endocrinology Diagnoses Type 2 diabetes mellitus without complication, unspecified senior living insulin use status Jason Batres MD Phone: tel: fax: [facility] End[facility]ology - [address] [address] Phone: tel: fax: Referral ID Status Reason Start Date Expiration Date V isits Requested Visits Authorized [id number] Closed Specialty Services Required 10/17/2016 1 1 Question Answer Reason for Request: diabetes, A1C 10.4, 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, has been seen at [facility], but looking to be seen closer to home Reason for Visit * Reason Comments Diabetes Encounter Details Date Type Department Care Team (Late st Contact Info) Description 10/16/2016 10:30 EDT Office Visit Jason Batres MD, [facility] [address], [place] [phone] Jason Batres MD [address] [place] [phone] Type 2 diabetes mellitus without complication, unspecified senior living insulin use status ([facility]) (Primary Dx) Social History Tobacco Use Types [...] Sign Reading Time Taken Comments Blood Pressure 110/72 10/16/2016 1006 EDT Pulse 96 10/16/2016 1006 EDT Temperature 36.7 ??C (98.1 ??F) 10/16/2016 1006 EDT Respiratory Rate - - Oxygen Saturation 97% 10/16/2016 1006 EDT Inhaled Oxygen Concentration - - Weight 122 kg (269 lb) 10/16/2016 1006 EDT Height - - Body Mass Index 34.52 08/08/2016 0840 EDT documented in this encounter [...] * Patient Instructions* Jason Batres MD - 10/16/2016 10:30 EDT 1. Put the needle on the pen and take off the first cap 2. To reconstitute the lyophilized powder with the diluent in the Pen, twist the clear cartridge onthe Pen in the direction of the arrow until the Pen is felt/heard to ???click?? into place and the[2] is seen in the number window. This mixes the diluent with the lyophilized powder. 3. Slowly and gently rock the Pen [id number] 5 times to mix the reconstituted solution of TANZEUM. Advise the patient to not shake the Pen hard to avoid foaming. 4. Wait 15 minutes for the 30-mg Pen to ensure that the reconstituted solution is mixed. 5. Slowly and gently rock the Pen [id number] 5 additional times to mix the reconstituted solution. 6. Visually inspect the reconstituted solution in the viewing window for particulate matter. The reconstituted solution will be yellow in color. After reconstitution, use TANZEUM within 8 hours. Gently tap the clear cartridge to bring large bubbles to the top. 7. Twist the pen to move from the 2 on the dial to the 3 on the dial 8. Take off the safety cap 9. Inject straightinto the thigh muscle 10. Push the plunger 11. Count to ten. 12. Remove the pen 13. Put the outer cap on the needle and then twist off the needle 14. Throw the needle in a mild carton or laundry detergent bottle. The pen can go into the trash If you miss a dose, you can still give it as long as it is within 3 DAYS documented in this encounter Ordered Prescriptions Prescription Sig Dispense Quantity Refills Last Filled Start Date End Date albiglutide (TANZEUM) 30 mg/0.5 mL pen injector Inject 30 mg into the skin every 7 days. 4 Each 5 10/16/2016 10/20/2016 documented in this encounter Progress Notes * Jason Batres MD - 10/16/2016 1030 EDT Subjective: Patient ID: Jeff Scott is an 55 y.o. male. No chief complaint on file. HPI Jeff is here to follow-up on his diabetes. His A1c unfortunately continues to be very elevated. [place] not seen an percussion welding machine operator here although I was hoping to get see somebody closer to his home rather than [facility]. 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 Last A1c here was in May was 10.1. I looked at the records from [facility] and he has been seen there within the last 3 months and his A1c was 9.4 but no changes were made. I given him a prescription for Trulicity but this was not covered by his insurance so he has not started this. He stopped the Januvia several days ago in preparation to start the Trulicity. He does remain on glimeperide as well as me tformin. Today we discussed different GLP-1 agonists. He does feel that he could follow some directions given to him despite some of his memory issues. I spent most of the visit showing him how to use Tanzeum and writing this down for him. I am hopeful that this will be covered rather than the Trulicity. I don't think he would be able to take it every day injections weekly injections will be a better option for him. He also agrees to see endocrinology here. Unfortunately his A1c today is still elevated at 10.4. Social Current Outpatient Prescriptions on File Prior [...] 360 Tab 5 No current facility-administered medications on file prior to visit. No Known Allergies Review of Systems Respiratory: Negative for shortness of breath. Cardiovascular: Negative for chest pain. - See HPI Objective: BP 110/72 Pulse 96 Temp 36.7 ??C (98.1 ??F) (Tympanic) Wt (!) 122 kg (269 lb) SpO2 97% BMI 34.52 kg/m2 Physical Exam Constitutional: He is oriented [...] visit: Type 2 diabetes mellitus without complication, unspecified termite helper insulin use status - POCT Hemoglobin A1c Other orders - albiglutide (TANZEUM) 30 mg/0.5 mL pen injector; Inject 30 mg into the skin every 7 days. Goals None 1. Diabetes He is going to continue his metformin and glimeperide. I switched his GLP-1 agonist to Tanzeum and called us in today. If this is not successful and his insurance probably denies this I will have to write a letter saying I do not think he is capable of taking a daily injection given his memory problems. I also think Trulicity will be much easier for him given the less complicated administration but he did seem to do well with showing me how to use the Tanzeum. Will also refer him to endocrinology here which is much closer to home I think will be easier for him to get to. I would like him to come back for a short visit at just about a month to see how he isdoing with these injections. This note was prepared with voice recognition software, please excuse any over the road driver errors. I spent 30 minutes of face-face time with the patient, over half of it was in counseling Jason Batres MD documented in this encounter Plan of Treatment Scheduled Referrals Name Type Priority Associated Diagnoses Order Schedule AMB CONS/FOLLOW UP ENDOCRINOLOGY Outpatient Referral Routine Type 2 diabetes mellitus without complication, unspecified senior living insulin use status ([facility]) Ordered: 10/17/2016 documented as of this encounter Procedures Procedure Name Priority Date/Time Associated Diagnosis Comments POCT HEMOGLOBIN A1C Routine 10/16/2016 1 1:05 EDT Type 2 diabetes mellitus without complication, unspecified termite helper insulin use status ([facility]) documented in this encounter Results * (ABNORMAL) POCT HEMOGLOBIN A1C (10/16/2016 11:05 EDT) Hemoglobin A1c, POC 10.4(A) <=5.7 % [facility] 10/16/2016 11:0 5 EDT us Jason Batres MD POINT OF CARE TEST ORDERABLES Final Result [facility] [address] [place] [address] documented in this encounter Visit Diagnoses Diagnosis Type 2 diabetes mellitus without complication, unspecified termite helper insulin use status- Primary documented in this encounter Discontinued Medications Medication Sig Discontinue Reason Start Date End Da te dulaglutide (TRULICITY) 0.75 mg/0.5 mL pen injector Inject 0.75 mg into the skin every 7 days. 05/18/2016 10/16/2016 documented as of this encounter Care Teams Marketing Communications Associate Relationship Specialty Start Date End Date Jason Batres MD [address] [place] [address] PCP - General 07/27/11 12/31/23 documented as of this encounter
--- OUTSIDE RECORDS SUMMARY | 2024-02-28 16:54 | XMS_ITS | Encounter Summary ---
Author Organization [facility] Address [address] [place] [address] Care Team Providers Care Practicing Urologist Name Role Phone Jason Batres MD Primary Care Provi margarita Reason for Visit * Reason Onset Date Comments Appointment Related 01/29/[address] Encounter Details Date Type Department Care Team (Late st Contact Info) Description 01/29/[address], [address] [place], [place] [phone] Cht, Admin Appointment Related ([facility] RD) Social [...] 01/10/2017 8:39 EST documented in this encounter Miscellaneous Notes * Telephone Encounter - Sasha Ruiz - 01/29/2017 1444 EST LVM with patient informing that [facility] [address] will not be available for his 01.30.2017 apt. 01.30.2017 at 11AM at [facility] has been cancelled - asked patient to call [facility] to reschedule. documented in this encounter Plan of Treatment Not on file documented as of this encounter Visit Diagnoses Not on filedocumented in this encounter Care Teams Practicing Urologist Relationship Specialty Start Date End Date Jason Batres MD [address] [place] [address] PCP - General 07/27/11 12/31/23 documented as of this encounter
--- OUTSIDE RECORDS SUMMARY | 2024-02-28 16:54 | XMS_ITS | Encounter Summary ---
Author Organization [facility] Address [address] [place] [address] Care Team Providers Care Online Merchandising Manager Name Role Phone Jason Batres MD Primary Care Provi margarita Reason for Visit * Reason Onset Date Comments Appointment Related 09/18/[address] Encounter Details Date Type Department Care Team (Late st Contact Info) Description 09/18/[address], [address] [place], [place] [phone] Cht, Admin Appointment Related ([facility]T RD) Social [...] * Telephone Encounter - Sasha Ruiz - 09/18/2016 5948 EDT Pt called in to schedule with [facility]. Pt is scheduled for 10.11.16, 9AM, at [facility]. documented in this encounter Plan of Treatment Not on file documented as of this encounter Visit Diagnoses Not on filedocumented in this encounter Care Teams Online Merchandising Manager Relationship Specialty Start Date End Date Jason Batres MD [address] [place] [address] PCP - General 07/27/11 12/31/23 documented as of this encounter
--- OUTSIDE RECORDS SUMMARY | 2024-02-28 16:54 | XMS_ITS | Encounter Summary ---
Author Organization [facility] Address [address] [place] [address] Care Team Providers Care Eligibility Counselor Name Role Phone Jason Batres MD Primary Care Provi margarita Reason for Visit * Reason Comments Follow-up Right foot Encounter Details Date Type Department Care Team (Late st Contact Info) Description 12/20/2016 10:15 EDT Office Visit [facility] - [address] [address] Angelina Gonzales, [facility] [address] [place] [phone] Skin ulcer of toe of right foot, limited to breakdown of skin ([facility] ([facility]) (Primary Dx); Type 2 diabetes mellitus with diabetic polyneuropathy, without long-term current use of insulin ([facility]) (HCC-CMS) Social History Tobacco Use Types Packs/Day [...] - - Weight 126.1 kg (278 lb) 12/20/2016 1022 EDT Height 188 cm (6' 2.02) 12/20/2016 1022 EDT Body Mass Index 35.67 12/20/2016 1022 EDT documented in this encounter Functional Status * Because of a physical, mental, or emotional condition, does this person have difficulty doing errands alone such as visiting a doctor's office or shopping? Answer Date of Assessment Author Yes 12/20/2016 10:22 EDT documented as of this encounter Mental Status * Because of a physical, mental, or emotional condition, does this person have serious difficulty concentrating, remembering, or making decisions? Answer Entry Date Author Yes 12/20/2016 10:22 EDT documented in this encounter Progress Notes * Angelina Gonzales, BRENDA - 12/20/2016 1015 EDT Jeff Scott is a very pleasant 56 y.o. male patient who presents for follow up right great toe ulcer. He reports that he believes it is doing well. He has not had any pain or drainage. He has not noticed any redness or swelling to the toe. He has been doing the dressing changes daily. He reports that he has been airing it out more and sometimes does not wear a dressing when he is working. He has been wearing the shoes with the offloading insole and does wear the surgical shoe when he is home at night. Overall he is feeling well today. He denies any nausea, vomiting, fever, chills. 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 Patient Active Problem List Diagnosis Date Noted [...] polyneuropathy, without long-term current use of insulin ([facility]) No orders of the defined types were placed in this encounter. PLAN: Mr. Scott presents today for follow-up right great toe ulcer. It remains stable and superficial with no signs of infection. It has not really improved much in size since his last visit. I did debridethe tissue with a 15 blade, skin and subcutaneous tissue, less than 20 cm??. A dressing was applied. I encouraged him to wear a dressing during the day especially when he is at work to keep the area clean and protected. He can remove this at night if he would like. I did apply some new offloading padding to his insoles today as the previous padding was pretty worn out. Encouraged him to wear these as much as he can as he does need to offload the toe more to allow the ulcer to heal. This is especially important since he has been more active working lately. He is going to follow-up again in 3 weeks. He knows to call with any questions and is happy with this plan. Portions of this document have been prepared with speech recognition software or keyboard data governance analyst techniques. Minor irregularities or keyboarding misprints may be present documented in this encounter Plan of Treatment Not on file documented as of this encounter Visit Diagnoses Diagnosis Skin ulcer of toe of right foot, limited to breakdown of skin (HCC-CMS)- Primary Type 2 diabetes mellitus with diabetic polyneuropathy, without long-term current use of insulin ([facility]) documented in this encounter Care Teams Eligibility Counselor Relationship Specialty Start Date End Date Jason Batres MD [address] [place] [id number] PCP - General 07/27/11 12/31/23 documented as of this encounter
--- OUTSIDE RECORDS SUMMARY | 2024-02-28 16:54 | XMS_ITS | Encounter Summary ---
Author Organization [facility] Address [address] [place] [address] Care Team Providers Care Pound Keeper Name Role Phone Karishma Batres MD Primary Care Provi margarita Encounter Details Date Type Department Care Team (Latest Contact Info) Description 03/23/2016 11:41 EST - 03/23/2016 17:55 EST Hospital Encounter [facility] Perioperative Services - [address] [phone] Angelina Gonzales, DPM [address] [place] [id number] Acute osteomyelitis of phalanx of foot, unspecified laterality ([facility]) Discharge Disposition: Home or Self Care Social [...] Sign Reading Time Taken Comments Blood Pressure 108/75 03/23/2016 1730 EST Pulse - - Temperature 36.4 ??C (97.5 ??F) 03/23/2016 1706 EST Respiratory Rate 17 03/23/2016 1730 EST Oxygen Saturation 94% 03/23/2016 1730 EST Inhaled Oxygen Concentration - - Weight 120.2 kg (265 lb) 03/21/2016 1048 EST Height 188 cm (6' 2) 03/21/2016 1048 EST Body Mass Index 34.02 03/21/2016 1048 EST documented in this encounter Functional Status [...] 03/15/2016 8:44 EST documented in this encounter Discharge Diagnoses Diagnosis M86.171 Other acute osteomyelitis, right ankle and foot-M86.171[ICD-10-CM] L97.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 Ice and Elevation Icing and elevating your foot following surgery can have a direct effect on the amount of swelling and pain you experience. Ice can be used over the top of the foot/ankle (over the surgical dressing)or behind the knee. Do not apply directly to the skin. Ice should be applied 20 minutes at a time, in a 20 minutes on 20 minutes off cycle. Elevation simply means having your foot/ankle at or above the level of your heart. This will avoid pooling of surgical swelling in the foot/ankle, which decreases pain and improves healing time. Pain Control Although each patient handles pain differently, it is expected that most patients will have mild tomoderate pain following their foot/ankle surgery. Local anesthetic is commonly used during the surgery. Typically, the effect of the local anesthesia will last for a number of hours following the surgery as well. Your surgeon will provide you with medication to control pain after the local anesthetic wears off. Compliance with icing and elevation can significantly decrease postoperative pain. Rest Depending on the procedure performed, your surgeon will outline how long you will have to rest and/or stay off your feet. Some surgeries may allow for early activity while others will require strict non-weight bearing for a number of weeks. Plan on taking it easy. Ask friends and family to help youout and give your foot/ankle a chance to rest. Always remember that your ability to be compliant with rest can influence the final outcome of your foot/ankle surgery. Clean and Dry Dressings Your surgeon will perform all the surgical site dressing changes. When bathing, make every effort to keep you dressing dry. A wet dressing may increase the likelihood of infection. It goes without saying that your dressing should be kept as clean as possible. In general, the dressing will no longerbe utilized once your sutures are removed. Additional Instructions - 1. Elevate right lower extremity on two pillows, so it is at heart level or above 2. Leave dressing clean, dry, intact until follow up appointment with Dr. Gonzales 3. Weightbearing to heel in surgical shoe. Wear shoe at all times. Ok to remove when sleeping. 4. Take pain medications only as needed and as prescribed for pain- ibuprofen 800 mg 5. Continue with antibiotic until follow up appointment with Dr. Gonzales. 6. Limit activity to small trips- do not go for long walks. It is very important to rest and elevate the right leg while you recover this week. When should I contact my surgeon? ?? It is not unusual to see some blood penetrate the bandage. However, if the dressing becomes saturated, call your surgeon. ?? If your bandage gets wet by accident, it should be changed by your surgeon. ?? As described before, it is normal to have some postoperative pain. However, if the pain is not being controlled well enough with icing, elevation and/or medication, call your surgeon. ?? If you are not tolerating the postoperative medication as prescribed. If you have questions regarding your foot surgery, Dr. Gonzales can be contacted during weekday officehours at [phone]. If there is an emergency, Dr. Gonzales may also be contacted via pager by calling the [facility] at [phone] or [phone] (pager # [phone]). documented in this encounter Medications at Time of Discharge blood glucose meter (FREESTYLE FREEDOM LITE) Test FS BID. 1 Each 0 11/11/2013 amoxicillin-clavu lanate (AUGMENTIN) 875-125 mg per tablet Take 1 Tab by mouth every 12 hours for 7 days. 14 Tab 03/23/2016 03/30/2016 amoxicillin-clavu lanate (AUGMENTIN) 875-125 mg per tablet Take 1 Tab by mouth 2 times daily for 14 days. 28 Tab 03/15/2016 03/29/2016 blood glucose (FREESTYLE TEST) test strips 1 Strip by misc (non-drug; combo route) route 2 times daily 100 Each 1 05/11/2014 11/18/2021 glimepiride (AMARYL) 2 mg tablet Take 2 Tabs by mouth 2 times daily. 120 Tab 5 03/14/2016 11/29/2016 HYDROcodone-aceta minophen (NORCO) 5-325 mg tablet Take 1-2 tabs PO q6h prn pain 20 Tab 03/23/2016 05/18/2016 ibuprofen (MOTRIN) 200 mg tablet Take 800 mg by mouth daily. 09/21/2020 ibuprofen (MOTRIN) 800 mg tablet Take 1 Tab by mouth 3 times daily for 10 days. 30 Tab 03/23/2016 04/02/2016 lancets Test BID. 100 Each 1 11/11/2013 10/30/2022 levothyroxine (SYNTHROID) 112 mcg tablet Take 1 Tab by mouth daily. 90 Tab 1 04/21/2015 07/24/2016 metFORMIN (GLUCOPHAGE) 500 mg tablet TAKE TWO TABLETS BY MOUTH TWICE DAILY 360 Tab 5 03/10/2016 05/09/2017 sitaGLIPtin (JANUVIA) 50 mg tablet Take 1 Tab by mouth daily. 90 Tab 3 03/10/2016 05/18/2016 documented as of this encounter Ordered Prescriptions Prescription Sig Dispense Quantity Refills Last Filled Start Date End Date ibuprofen (MOTRIN) 800 mg tablet Take 1 Tab by mouth 3 times daily for 10 days. 30 Tab 03/23/2016 04/02/2016 amoxicillin-clavula cuba (AUGMENTIN) 875-125 mg per tablet Take 1 Tab by mouth every 12 hours for 7 days. 14 Tab 03/23/2016 03/30/2016 HYDROcodone-acetami nophen (NORCO) 5-325 mg tablet Take 1-2 tabs PO q6h prn pain 20 Tab 03/23/2016 05/18/2016 documented in this encounter Discharge Disposition Disposition Code Departure Means Destination Home or Self Care documented in this encounter Progress Notes * Taylor Sanches RN - 03/21/2016 1112 EST Davi Scott has been instructed as follows regarding medication administration for the day of thescheduled procedure. Date of Surgery: 03/23/16 Instructions for Taking Medications Day of Surgery Medication Sig Last Dose Hold DOS Take DOS amoxicillin-clavulanate (AUGMENTIN) 875-125 mg per tablet Take 1 Tab by mouth 2 times daily for 14 days. Yes blood glucose (FREESTYLE TEST) test strips 1 Strip by misc (non-drug; combo route) route 2 times daily blood glucose meter (FREESTYLE FREEDOM LITE) Test FS BID. glimepiride (AMARYL) 2 mg tablet Take 2 Tabs by mouth 2 times daily. yes ibuprofen (MOTRIN) 200 mg tablet Take 200 mg by mouth every 6 hours Around 03/17/16 yes lancets Test BID. levothyroxine (SYNTHROID) 112 mcg tablet Take 1 Tab by mouth daily. Yes metFORMIN (GLUCOPHAGE) 500 mg tablet TAKE TWO TABLETS BY MOUTH TWICE DAILY yes sitaGLIPtin (JANUVIA) 50 mg tablet Take 1 Tab by mouth daily. yes documented in this encounter H&P Notes * Angelina Gonzales DPM - 03/23/2016 1609 EST The preoperative history and physical which was performed within 30 days of this procedure has been reviewed and the clinically appropriate elements of the physical examination have been repeated. There are no changes to the documented history and physical or if so such changes are documented below Angelina Gonzales DPM 03/23/2016 16:04 Source Note - Carmelita Hogue, FITNESS AND WELLNESS INSTRUCTOR - 03/20/2016 10:30 EST Preoperative H&P Date of Service: 03/21/2016 Chief Complaint: Chief Complaint Patient presents with ??? Pre-op Exam Planned Procedure: Right foot 2nd toe amputation Surgeon: Dr. Gonzales Planned Procedure Date: 03/23/16 Problem List Available or Initiated: yes HISTORY OF PRESENT ILLNESS: Davi Scott is a 55 y.o., male, Davi dropped a block of firewood onto his [...] X Respiratory X Gastrointestinal X Genitourinary X NEUROPSYCHOLOGY SERVICE DIRECTOR X Musculoskeletal X Neurological X Memory impairment [...] 02/25/2013 ECG: NSR, no ST changes IMPRESSION: Davi is a 55 year old male with no known ASCVD, scheduled for low CV risk procedure. He has a history of diabetes, his A1C last month was high at 10%, however he was taking his metforminincorrectly. His blood glucose in the office today after breakfast is acceptable at 140. Revised Cardiac Risk Index: 0 Risk of major postoperative cardiac complication: 0.4% PLAN: Davi is ok to proceed with surgery as planned. He was instructed to hold his oral diabetic medications the morning of surgery. He was also instructed not to take any nsaids 7 days prior to surgery. Thank you for asking me to consult on this very nice gentleman. Carmelita Hogue, FITNESS AND WELLNESS INSTRUCTOR 03/21/2016 10:06 Revised Cardiac Risk Index How [...] risk of major noncardiac surgery. Circulation 1999; 100:[id number] (87). documented in this encounter OR Notes * OR Surgeon - Angelina Gonzales DPM - 03/23/2016 0000 EST OPERATIVE REPORT SERVICE DATE: 03/23/2016 SURGEON: Angelina Gonzales DPM TUBE BACKER: None. PREOPERATIVE DIAGNOSIS: Right foot 2nd toe osteomyelitis. POSTOPERATIVE DIAGNOSIS: Right foot 2nd toe osteomyelitis. PROCEDURE: Right foot 2nd toe partial amputation. PATHOLOGY: Right foot 2nd toe sent to pathology. ANESTHESIA: MAC plus local consisting of 5 mL of a 1:1 mixture of 0.5% Marcaine plain and 1% lidocaine plain. HEMOSTASIS: Pneumatic ankle tourniquet at 250 mmHg for 9 minutes. ESTIMATED BLOOD LOSS: Less than 10 mL. MATERIALS: None. INJECTABLES: None. COMPLICATIONS: None. INDICATIONS: Mr Scott presented with an ulcer to the right 2nd toe. It has been there for several months. It was caused by trauma. He then sought treatment for it in March and went to the emergencydepartment. At that time the wound was noted to probe to bone. X-rays were taken, which showed erosion of the distal phalanx of the 2nd toe. A bone specimen taken in the ED ended up growing back bacteria as listed per chart. He was started on antibiotics and discharged home with plan to followup inthe outpatient clinic for possible toe amputation. He presented to my clinic with wound noted to still be probing to bone. We discussed treatment options and due to the chronicity of the wound and the presence of infection in the bone I recommended a partial toe amputation at that time. 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 It was also discussed in depth with his over the phone. The patient and his were in agreement for a partial 2nd toe amputation, and after being cleared by his primary care doctor, he was taken to the operating room. NARRATIVE: Under mild sedation, the patient was brought into the operating room and placed on the operative table in the supine position. Pneumatic ankle tourniquet was placed about the right ankle. Following IV sedation, local anesthesia was obtained about the right foot utilizing 5 mL of a 1:1 mixture of 0.5% Marcaine plain and 1% lidocaine plain. The foot was then scrubbed, prepped and draped in the usual aseptic manner. Esmarch bandage was used to exsanguinate the right lower extremity and pneumatic ankle tourniquet was inflated at this time. Attention was directed to the right 2nd toe. It should be noted that on removal of the dressing in the operating room the bandage was noted to be very tight. It had created a couple abrasions on the dorsal aspect of the 2nd and 3rd toes and these were noted at this time. The ulcer was noted to the distal tip of the 2nd toe. An incision was made to encompass the middle and distal phalanx due to the presence of the ulcer, and the toe was disarticulated and passed from the operative field at this time. It was then sent for pathology. Next, the proximal phalanx head was evaluated and noted to be healthy. All remaining soft tissue was also noted to be healthy. The end of the proximal phalanx was removed for adequate closure. The area was flushed with copious amounts of normal sterile saline. The skin was then reapproximated and coapted with 4-0 nylon suture. Xeroform dressing was applied. DST was applied. Light Cem bandage was applied. Prior to applicationof the dressing and prior to closure, it should be noted that the tourniquet was let down with 9 minutes noted to have elapsed and good blood flow was noted to return to the toe. The patient tolerated the procedure and anesthesia well. He was transferred to the recovery room with vital signs stable and vascular status intact to all toes of the right foot. Following a period of postoperative monitoring, the patient will be discharged home with written and oral postoperative instructions to leave dressing clean, dry and intact until first followup appointment in 1 week, to elevate the right lower extremity on 2 pillows at heart level, to be limited weightbearing in the surgical shoe pain. Medications written for ibuprofen 800 mg 3 times a day. This was discussed with his who notes Mr Scott has had problems with opioids in the past. He is to continue on his antibiotics for another week. Encouraged Mr Scott and his to call if they have any questions in the postoperative period prior to seeing me. Unless otherwise noted, there were no complications, no blood loss, no cultures obtained, no specimens removed, and no drains retained. Angelina Gonzales DPM 07 36 AM / Angelina Gonzales DPM ln Confirmation: [id number] Dictation ID: [id number] documented in this encounter Miscellaneous Notes * Anesthesia Post-Eval - Juan Cao MD - 03/23/2016 1740 EST Post Anesthesia Evaluation Note Date of Service: 03/23/2016 Davi Scott, a 55 y.o. year old male has received MAC today. He has been evaluated, assessed and discharged from anesthesia care with stable cardiorespiratory function and easily arousable mental status. The last set of recorded vital signs and pain rating were reviewed: Temp: 36.4 ??C (97.5 ??F), Heart Rate: 76 BPM, BP: 103/67, Resp: 20, SpO2: 97 %,Numeric Pain Level (Scale 1-10): 0 Davi Scott participated in this evaluation unless otherwise noted. His pain, nausea and vomitinghave been managed and his body temperature and fluid balance have been restored. Additional monitoring and assessment needs have been addressed. If present, any postoperative events are documented below. Juan Cao MD 03/23/2016 17:40 * Brief Op Note - Angelina Gonzales DPM - 03/23/2016 1707 EST Brief Post-Op Note Date of Surgery: 03/23/2016 Surgeon: Angelina Gonzales DPM Assistants: None Pre-Op Diagnosis: Right 2nd toe osteomyelitis Post-Op Diagnosis: Same Procedure(s): Right 2nd toe partial amputation Findings: See op report for full details Anesthesia Type: IV Sedation + local Estimated Blood Loss: Unless otherwise noted, there was no blood loss, specimens removed, cultures obtained, or drains retained. The estimated blood loss was Minimal Specimens/Cultures: toe was sent for Routine Pathology Drains/Packs: None Complications: None Disposition and Condition: Davi Scott was sent to PACU in Stable condition. Angelina Gonzales DPM 03/23/2016 17:07 documented in this encounter Plan of Treatment Not on file documented as of this encounter Procedures Procedure Name Priority Date/Time Associated Diagnosis Comments ECG REPORT - SCANNED 03/28/2016 9:35 EST GLUCOSE, GLUCOMETER Routine 03/23/2016 1 7:10 EST GLUCOSE, GLUCOMETER Routine 03/23/2016 1 2:40 EST SURGICAL PATHOLOGY Routine 03/23/2016 9: 17 EST ECG REPORT - SCANNED 03/21/2016 15:50 EST ECG REPORT - SCANNED 03/21/2016 14:48 EST documented in this encounter Results * ECG REPORT - SCANNED (03/28/2016 9:35 EST) 03/28/2016 9:35 EST us Scan 2 Movement Assembly Final Inspector PROCEDURE/MINOR SURGICAL OR DERABLES Final Result * (ABNORMAL) GLUCOSE, GLUCOMETER (03/23/2016 17:10 EST) Glucose, Fingerstick 105(H) 70 - 100 mg/dl 03/23/2016 17:09 EST [facility] Test Rider ID [id number] 03/23/2016 17:09 EST [facility] Comment:Test Performed by [facility] BLOOD SPECIMEN / Unknown 03/23/2016 17:10 EST 03/23/2016 17:09 EST us Angelina Gonzales DPM CHEMISTRY & BLOOD GAS ORDERABLE S Final Result [facility] [address] [place] [address] * (ABNORMAL) GLUCOSE, GLUCOMETER (03/23/2016 12:40 EST) Glucose, Fingerstick 128(H) 70 - 100 mg/dl 03/23/2016 12:40 EST [facility] Test Rider ID [id number] 03/23/2016 12:40 EST [facility] Comment:Test Performed by [facility] BLOOD SPECIMEN / Unknown 03/23/2016 12:40 EST 03/23/2016 12:41 EST us Angelina Gonzales DPM CHEMISTRY & BLOOD GAS ORDERABLE S Final Result [facility] [address] [place] [address] * SURGICAL PATHOLOGY (03/23/2016 9:17 EST) Pathology Report: SURGICAL PATHOLOGY REPORT Reports generated via electronic interface contain original data; however they are lacking the format of the original report. Caution should be taken when reading/interpreti ng unformatted reports. Name: ? DAVI SCOTT ? Accession #: ? [id number] ? : ? 1960 (Age: 55) ??M ? Collect Date: ? 03/23/2016 ? Location: ? [facility] ? Receive Date: ? 03/24/2016 ? Provider: ANGELINA GONZALES DPM Copy to: KARISHMA BATRES MD ? Final Pathologic Diagnosis: 2ND TOE, RIGHT, PARTIAL AMPUTATION: - Acute osteomyelitis. ??- Proximal bone and soft tissue margins appear viable without acute inflammation. - Skin with ulceration and cellulitis with abscess formation. Document reviewed and electronically signed by: GLENN DOUGLASS MD Report ??Date: 03/30/2016 14:59 By the signature above, the attending physician certifies that he/she has personally conducted a gross and/or microscopic examination of the described specimens and rendered or confirmed the above diagnosis. Specimen(s) Received: Right 2nd toe partial amputation Clinical History: Osteomyelitis Gross Description: ? Received in formalin labelled with proper patient identification (initials D, S) and right 2nd toe partial amputation is a toe amputation (3.0 cm from proximal to distal x 2.4 cm from medial to lateral x 2.0 cm from dorsal to plantar) that has been amputated through the 1st joint space. ? On the plantar surface, there is a yellow-white granular area of slight ulceration measuring 2.0 x 1.5 x 0.1 cm. Immediately adjacent to this, is a raised pink-white lesion measuring 0.9 x 0.4 x 0.1 cm. The bone underlying the ulcer is pink-yellow and soft. The ulcer is 1.0 cm from the proximal soft tissue margin, and the raised pink lesion is 0.3 cm from the proximal soft tissue margin. The unguis is absent. The remaining skin is white and wrinkled to granular. The bone at the proximal margin is covered by smooth glossy cartilage and the bone and soft tissue at the margin appear viable. The proximal margin is inked black. ? Brakes Inspector sections are submitted as follows: BLOCK DAVIS 1- ??skin with adjacent appliance service representative soft tissue margin, including raised pink lesion 2- ??ulcer with underlying bone, following acid decalcification 3- ??proximal bone margin, en face, following acid decalcification Dr. Burnett 03/24/2016 4:09 PM End of Report [facility] 03/23/2016 9:17 EST 03/24/2016 9:17 EST us Angelina Gonzales DPM PATHOLOGY ORDERABLES Final Resu lt [facility] [address] [place] [address] * ECG REPORT - SCANNED (03/21/2016 15:50 EST) 03/21/2016 15:5 0 EST us Scan 2 Movement Assembly Final Inspector PROCEDURE/MINOR SURGICAL OR DERABLES Final Result * ECG REPORT - SCANNED (03/21/2016 14:48 EST) 03/21/2016 14:4 8 EST us Scan 2 Movement Assembly Final Inspector PROCEDURE/MINOR SURGICAL OR DERABLES Final Result documented in this encounter Visit Diagnoses Diagnosis Acute osteomyelitis of phalanx of foot, unspecified laterality (HCC-CMS) Acute osteomyelitis of phalanx of foot (HCC-CMS) Acute osteomyelitis, ankle and foot documented in this encounter Administered Medications Inactive Administered Medications - up to 3 most recent administrations Medication Order MAR Action Action Date Dose Rate Site atropine 0.1 mg/mL syringe 0.5 mg 0.5 mg, intravenous, PRN, Starting on Caridad 03/23/16 at 1700, Until Caridad 03/23/16 at 2009, Symptomatic HR < 50, Routine, Recovery (only) ceFAZolin (ANCEF) syringe 2 g 2 g, intravenous, Administer over 10 Minutes, PRE-OP ONCE, 1 dose, On Caridad 03/23/16 at 1645, Routine, Pre-Op DOS Rx Approved Given by Other 03/23/2016 16:36 EST 2 g dextrose 50 % solution 12.5 g 12.5 g, intravenous, PRN, Starting on Caridad 03/23/16 at 1225, Until Caridad 03/23/16 at 2009, Low Blood Sugar, Routine, Pre-Op DOS Rx Approved fentaNYL citrate (PF) 50 mcg/mL injection 25-100 mcg 25-100 mcg, intravenous, EVERY 5 MIN PRN, Starting on Caridad 03/23/16 at 1700, Until Caridad 03/23/16 at 2009, Pain, Routine, Recovery (only) glucagon (human recombinant) injection 1 mg 1 mg, intramuscular, PRN, Starting on Caridad 03/23/16 at 1225, Until Caridad 03/23/16 at 2009, Low Blood Sugar, Routine, Pre-Op DOS Rx Approved lactated ringers (LR) infusion at 25 mL/hr, intravenous, CONTINUOUS, Starting on Caridad 03/23/16 at 1245, Until Caridad 03/23/16 at 2009, Routine, Pre Op Day of Surgery New Bag 03/23/2016 12:42 EST 25 mL/hr lactated ringers (LR) infusion at 75 mL/hr, intravenous, CONTINUOUS, Starting on Caridad 03/23/16 at 1730, Until Caridad 03/23/16 at 2010, Routine, Recovery (only) naloxone (NARCAN) injection 0.2 mg 0.2 mg, intravenous, PRN, Starting on Caridad 03/23/16 at 1700, Until Caridad 03/23/16 at 2009, Opioid Reversal, Routine, Recovery (only) documented in this encounter Active and Recently Administered Medications Times are shown in EST. Scheduled Medication Order 03/21/2016 03/22/2016 03/23/2016 ceFAZolin (ANCEF) syringe 2 g (COMPLETED) 2 g, intravenous, Administer over 10 Minutes, PRE-OP ONCE, 1 dose, On Caridad 03/23/16 at 1645, Routine, Pre-Op DOS Rx Approved 1636 (Given by Other - Provider: Ria Nicole RN - Comment: Given by Mandy Chinchilla) Continuous Medication Order 03/21/2016 03/22/2016 03/23/2016 lactated ringers (LR) infusion at 25 mL/hr, intravenous, CONTINUOUS, Starting on Caridad 03/23/16 at 1245, Until Caridad 03/23/16 at 2009, Routine, Pre Op Day of Surgery 1242 (New Bag - Prov ider: Naty Sena RN) lactated ringers (LR) infusion at 75 mL/hr, intravenous, CONTINUOUS, Starting on Caridad 03/23/16 at 1730, Until Caridad 03/23/16 at 2009, Routine, Recovery (only) 1730 (Canceled Entry - Provider: Batch Job User Admin - Comment: Automatically canceled at discontinue of medication order) PRN Medication Order 03/21/2016 03/22/2016 03/23/2016 atropine 0.1 mg/mL syringe 0.5 mg 0.5 mg, intravenous, PRN, Starting on Caridad 03/23/16 at 1700, Until Caridad 03/23/16 at 2009, Symptomatic HR < 50, Routine, Recovery (only) dextrose 50 % solution 12.5 g 12.5 g, intravenous, PRN, Starting on Caridad 03/23/16 at 1225, Until Caridad 03/23/16 at 2009, Low Blood Sugar, Routine, Pre-Op DOS Rx Approved fentaNYL citrate (PF) 50 mcg/mL injection 25-100 mcg 25-100 mcg, intravenous, EVERY 5 MIN PRN, Starting on Caridad 03/23/16 at 1700, Until Caridad 03/23/16 at 2009, Pain, Routine, Recovery (only) glucagon (human recombinant) injection 1 mg 1 mg, intramuscular, PRN, Starting on Caridad 03/23/16 at 1225, Until Caridad 03/23/16 at 2009, Low Blood Sugar, Routine, Pre-Op DOS Rx Approved naloxone (NARCAN) injection 0.2 mg 0.2 mg, intravenous, PRN, Starting on Caridad 03/23/16 at 1700, Until Caridad 03/23/16 at 2009, Opioid Reversal, Routine, Recovery (only) documented in this encounter Orders Medications Ordered That Matthew ht Not Have Been Administered Count Last Ordered Date First Ordered Date atropine 0.1 mg/mL syringe 0.5 mg 1 017 dextrose 50 % solution 12.5 g 1 03/23/2016 fentaNYL citrate (PF) 50 mcg /mL injection 25-100 mcg 1 03/23/2016 glucagon (human recombinant) injection 1 mg 1 03/23/2016 HYDROcodone-acetaminophen (N ORCO) 5-325 mg tablet 1-2 Tab 1 03/23/2016 lactated ringers (LR) infusion 1 03/23/2016 naloxone (NARCAN) injection 0.2 mg 1 2016 Nursing Count Last Ordered Date First Orde red Date INSERT PERIPHERAL IV 1 03/23/2016 Admission Count Last Ordered Date First Orde red Date STATUS: OUTPATIENT SURGICAL OP BED/SERVICES 1 03/23/2016 Transfer Count Last Ordered Date First Orde red Date NOTIFY PPS PACU PATIENT DISCHARGE 1 017 Discharge Count Last Ordered Date First Orde red Date DISCHARGE PATIENT 1 03/23/2016 documented in this encounter Care Teams Pound Keeper Relationship Specialty Start Date End Date Karishma Batres MD [address] [place] [id number] PCP - General 07/27/11 12/31/23 documented as of this encounter
--- OUTSIDE RECORDS SUMMARY | 2024-02-28 16:54 | XMS_ITS | Encounter Summary ---
Author Organization [facility] Address [address] [place] [address] Care Team Providers Care Mix Technician Name Role Phone Jason Batres MD Primary Care Provi margarita Reason for Visit * Reason Comments Diabetes Encounter Details Date Type Department Care Team (Late st Contact Info) Description 05/18/2016 11:30 EDT Office Visit Jason Batres MD, PC [address] [place], [place] [id number] Jason Batres MD [address] [place] [address] Type 2 diabetes mellitus without complication, without long-term current use of insulin ([facility]) (Primary Dx) Social History Tobacco [...] Sign Reading Time Taken Comments Blood Pressure 110/70 05/18/2016 1112 EDT Pulse 115 05/18/2016 1112 EDT Temperature 37.1 ??C (98.7 ??F) 05/18/2016 1112 EDT Respiratory Rate - - Oxygen Saturation 96% 05/18/2016 1112 EDT Inhaled Oxygen Concentration - - Weight 126.6 kg (279 lb) 05/18/2016 1112 EDT Height - - Body Mass Index 35.81 05/09/2016 0927 EST documented in this encounter Functional Status [...] this encounter Patient Instructions * Patient Instructions* aJson Batres MD - 05/18/2016 11:30 EDT The A1C is still too high at 10.1 1. STOP the januvia. 2. Start the Trulicity injections once per week. Let me know if any problems with this 3. Continue all your other medications (except the januvia) 4. I am also going to refer you to a naval architect specialist here so you don't have to drive to [facility] every time. documented in this encounter Ordered Prescriptions Prescription Sig Dispense Quantity Refills Last Filled Start Date End Date dulaglutide (TRULICITY) 0.75 mg/0.5 mL pen injector Inject 0.75 mg into the skin every 7 days. 4 Syringe 11 05/18/2016 10/16/2016 documented in this encounter Progress Notes * Jason Batres MD - 05/18/2016 1130 EDT Subjective: Patient ID: Jeff Scott is an 55 y.o. male. Chief Complaint Patient presents with ??? Diabetes HPI Jeff is here for follow-up of his diabetes. He has met with the [facility] team is working on his diet however his A1c remains very elevated at 10.1. He is taking metformin, glyburide, and Januvia for his diabetes. He does tell me he remembers to take his medications but he continues to havea hard time following a diet. He has not seen endocrinology in [facility] since last August. Since shemissed that appointment because of snow in February and also had to cancel recently in early May appointment. Since I last saw him he had a right second toe amputation. This has been healing nicelyand he follows up with orthopedic surgery. They stressed with him the importance of good foot care.He tells me he is starting to look for work and is involved with vocational rehabilitation. Social Current Outpatient Prescriptions on File Prior [...] of breath. Cardiovascular: Negative for chest pain. Psychiatric/Behavioral: Positive for memory loss. - See HPI Objective: Visit Vitals ??? BP 110/70 ??? Pulse (!) 115 ??? Temp 37.1 ??C (98.7 ??F) (Tympanic) ??? Wt (!) 126.6 kg (279 lb) ??? SpO2 96% ??? BMI 35.81 kg/m2 Physical Exam Constitutional: He is oriented to person, place, and time. He appears well- developed and well-nourished. No distress. Neck: No carotid bruits Cardiovascular: Normal rate, regular rhythm and normal heart sounds. No murmur heard. Pulmonary/Chest: Effort normal and breath sounds normal. Neurological: He is alert and oriented to person, place, and time. Psychiatric: He has a normal mood and affect. forgetful Assessment: Plan: Jeff was seen today for diabetes. Diagnoses and all orders for this visit: Type 2 diabetes mellitus without complication, without long-term current use of insulin - POCT Hemoglobin A1c Other orders - dulaglutide (TRULICITY) 0.75 mg/0.5 mL pen injector; Inject 0.75 mg into the skin every 7 days. Goals None 1. Diabetes I'm concerned about Jeff???s continued elevated A1c. Insulin would probably be the best option however I also worry about his ability to manage this on his own and think a weekly GLP-1 agonist wouldbe easier for him. We discussed this in detail today and I show him how to use Trulicity. I will start with adding the Trulicity and stopping Januvia. I'm also going to get a follow-up with endocrinology here. 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 I asked him to call me if he has any problems with the weekly injectable. He'll continue to work onhis diet as well. We discussed good foot care and I examined his feet today. This note was prepared with voice recognition software, please excuse any track maintainer errors. I spent 30 minutes of face-face time with the patient, over half of it was in counseling Jason Batres MD documented in this encounter Plan of Treatment Not on file documented as of this encounter Procedures Procedure Name Priority Date/Time Associated Diagnosis Comments POCT HEMOGLOBIN A1C Routine 05/18/2016 1 3:09 EDT Type 2 diabetes mellitus without complication, without long-term current use of insulin ([facility]) documented in this encounter Results * (ABNORMAL) POCT HEMOGLOBIN A1C (05/18/2016 13:09 EDT) Hemoglobin A1c, POC 10.1(A) <=5.7 % DUARTE SCHWARZ [facility] 05/18/2016 13:0 9 EDT Jason Batres MD POINT OF CARE TEST ORDERABLES Final Result BATRES JASON [facility] [address] [place] [address] documented in this encounter Visit Diagnoses Diagnosis Type 2 diabetes mellitus without complication, without long-term current use of insulin ([facility])- Primary documented in this encounter Discontinued Medications Medication Sig Discontinue Reason Start Date End Da te HYDROcodone-acetaminophen (NORCO) 5-325 mg tablet Take 1-2 tabs PO q6h prn pain 03/23/2016 05/18/2016 sitaGLIPtin (JANUVIA) 50 mg tablet Take 1 Tab by mouth daily. 03/10/2016 05/18/2016 documented as of this encounter Care Teams Mix Technician Relationship Specialty Start Date End Date Jason Batres MD [address] [place] [id number] PCP - General 07/27/11 12/31/23 documented as of this encounter
--- OUTSIDE RECORDS SUMMARY | 2024-02-28 16:54 | XMS_ITS | Encounter Summary ---
Author Organization [facility] Address [address] [place] [address] Care Team Providers Care Swimming Pool Cleaner Name Role Phone Jason Batres MD Primary Care Provi margarita Reason for Visit * Reason Comments Diabetes Encounter Details Date Type Department Care Team (Late st Contact Info) Description 08/18/2016 Community Health Team Jason Batres MD, PC [address] [place], [place] [address] Yael Blackburn, RD [address] [place] [address] Social History Tobacco Use Types [...] Progress Notes * Yael Blackburn, RD - 08/18/2016 9673 EDT [facility] Health Team Service Officer Follow-up Visit Name:Jeff Scott Today's Date: 08/18/2016 Date of visit: 08/18/2016 SUBJECTIVE: Jeff Scott is a 55 y.o. male initially referred to the [facility] Health Team for diabetes self-management education by No ref. provider found. Jeff was last seen on 08/02/2106 and returns today for a follow-up CHT CDE visit at [address], [place] accompanied by alone. This is the fifth encounter. Jeff reports has been writing down numbers pt feels that things are going much better. Pt continues to express great mickey in his current role at the [employer]. OBJECTIVE: Diabetes type: Type 2 Vitals: There [...] medication differently or not taking at all. DIABETES MEAL PLANNING: Type of meal planning: Consistent Carbohydrate Carbohydrate targets: 3 balanced meals daily Follows meal plan: 50% to 75% of the time PRESENT MEAL PATTERN: Comments: Pt continues to eat 3 meals/day with some snacks. Has improved the balance of meals. Current eating habits:eats 3 meals plus snacks. Breakfast: Cheerios with milk and 1/2 banana Lunch: left over stir lucas with white rice or peanut butter or tuna sandwich (1/2) Dinner: 2 eggs with onions and one slice of bread with smaller amount of gabriel and mustard Snacks: piece of fruit Beverages: water Alcohol: none reported PHYSICAL ACTIVITY: Type of exercise: increased activity when at work. Frequency per week: 3 times/week Duration in minutes: 60 or more minutes BLOOD GLUCOSE MONITORING: Glucose monitoring: BID. With meter: unknown Barriers to monitoring: None Home Blood Glucoses Running: Date Fasting Lunch Dinner HS Other 08/17/16 135 08/16/16 127 171 08/15/16 111 148 08/14/16 147 159 08/13/16 129 164 HYPOGLYCEMIA MANAGEMENT: Hypoglycemic event: none reported Patient is carrying a source of rapid acting CHO: none Patient has a current supply of glucagon? No Patient is wearing Medic Alert: No STRESS MANAGEMENT/COPING SKILLS: Pt could benefit from working with a community therapist. Will submit referral to Odette STAHL. ASSESSMENT: 55 yo male seen for follow up for follow up diabetes self management. Reviewed blood glucose log and discussed diet further. Encouraged improved meal balance by including more vegetables with both lunch and dinner. Pt continues to express some negative self talk towards self when he feels he can't do something that he used to be able to do. Continued to encourage further work with Odette Hector to identify a community therapist and pt agreed. DIABETES SELF-MANAGEMENT EDUCATION: Engaged pt in conversation related to positive behavior change, self-management, goal setting and action planning using motivational interviewing and active listening. During this session we addressed the following topics: Benefit of increased physical activity Benefit of improved stress management techniques Healthy eating and meal balance effect on glycemic control Discussed medications pt was unclear of medications and frequency. Educational materials provided: none Method: verbal Taught to: Patient Barriers to education: other Psychosocial, cultural, or economic barriers to care:none. Outcomes: Pt verbalized understanding Stage of Change: Preparation DIABETES SELF-MANAGEMENT RECOMMENDATIONS: - work with community therapist for stress management and coping skills - continue with blood glucose monitoring BID. PATIENT IDENTIFIED GOALS: Return for follow up in 2 weeks. ADDITIONAL INFORMATION FOR PROVIDER: Pt has not started trulicity as discussed at visit with Dr. Batres 05/18/16. Current Visit Location: Dr. Batres Total Time: 60 minutes, 10 minutes charting Referral: none Follow up: Date: Monday, August 29, 2016 Time: 3 PM With: Linda Dudley Dietitian Location: [address] [place] [address] Status: Active Yael Blackburn RD 08/18/2016 16:43 documented in this encounter Plan of Treatment Not on file documented as of this encounter Visit Diagnoses Not on filedocumented in this encounter Care Teams Swimming Pool Cleaner Relationship Specialty Start Date End Date Jason Batres MD [address] [place] [address] PCP - General 07/27/11 12/31/23 documented as of this encounter
--- OUTSIDE RECORDS SUMMARY | 2024-02-28 16:54 | XMS_ITS | Encounter Summary ---
Author Organization [facility] Address [address] [place] [address] Care Team Providers Care Consultant Electronics Name Role Phone Jason Batres MD Primary Care Provi margarita Reason for Visit * Reason Onset Date Comments Appointment Related 06/26/[address] Encounter Details Date Type Department Care Team (Late st Contact Info) Description 06/26/[address], [address] [place], [place] [id number] Cht, Admin Appointment Related (CHT RD) Social [...] * Telephone Encounter - Sasha Ruiz - 06/26/2016 8614 EDT Per request of CHT RD (see Prism notes 06.22.16), called patient to schedule him with CHT RD on 06.29.16 mid-day apt. Patient did not answer - LVM. documented in this encounter Plan of Treatment Not on file documented as of this encounter Visit Diagnoses Not on filedocumented in this encounter Care Teams Consultant Electronics Relationship Specialty Start Date End Date Jason Batres MD [address] [place] [address] PCP - General 07/27/11 12/31/23 documented as of this encounter
--- OUTSIDE RECORDS SUMMARY | 2024-02-28 16:54 | XMS_ITS | Encounter Summary ---
Author Organization [facility] Address [address] [place] [address] Care Team Providers Care Insurance Examiner Name Role Phone Jason Batres MD Primary Care Provi margarita Reason for Visit * Reason Comments Foot Pain right 2nd toe infect ion Encounter Details Date Type Department Care Team (Latest Contact Info) Description 03/15/2016 8:30 EST Office Visit [facility] - [address] [address] Angelina Gonzales, [facility] [address] [place] [address] Type 2 diabetes mellitus without complication, without long-term current use of insulin ([facility]) (Primary Dx); Acute osteomyelitis of right foot ([facility]) Social History Tobacco Use Types Packs/Day Years [...] - Inhaled Oxygen Concentration - - Weight 115.7 kg (255 lb 1.2 oz) 03/15/2016 0840 EST Height 188 cm (6' 2.02) 03/15/2016 0840 EST Body Mass Index 32.74 03/15/2016 0840 EST documented in this encounter Functional Status [...] for 14 days. 28 Tab 03/15/2016 03/29/2016 documented in this encounter Progress Notes * Angelina Gonzales, DPM - 03/15/2016 0830 EST Images from the original note were not included. Diagnosis: ICD-10-CM ICD-9-CM 1. Type 2 diabetes mellitus without complication, without long-term current use of insulin E11.9 250.00 GENERIC ORTHO VENDOR DME 2. Acute osteomyelitis of right foot M86.171 730.07 GENERIC ORTHO VENDOR DME Jeff Scott is being seen today for Foot Pain (right 2nd toe infection) . We have been asked to see him in consultation by Dr. Batres. HPI: Jeff Scott is a 55 y.o. male patient who presents with complaint of right 2nd toe ulcer, concernfor osteomyelitis. He states that he stubbed his foot back in December. He had a large wound as a result. He did not see anyone for it until recently when he went into the emergency department last week. He notes that the wound was not getting any better and he started to have a lot of pain and redne ss in the toe. In the emergency department, labs were drawn, x-rays were taken. He did not have a white count and his ESR was 14. X-ray showed near-complete destruction of the second toe distal phalanx. The ulcer was evaluated by the orthopedic team and noted to probe to bone. A specimen was taken of the bone and soft tissue and sent for culture and sensitivity. He was started on antibiotics and instructed to follow-up here within 1 week for evaluation for possible surgical intervention. He states he has been taking the antibiotics as instructed. He has been doing a wet-to-dry dressingto the toe. He saw his primary care doctor yesterday due to concern that the toe needed cleaned up and was instructed to perform twice a day wet-to-dry dressings. He notes that his has been performing the dressing changes. He reports that the swelling and pain in the toe has significantly improved since he was seen in the emergency department. He still has occasional pain in the toe especially the morning. He denies nausea vomiting fever chills. He notes that he had a pituitary surgery several years ago and has memory loss and developed diabetes as a result. He has difficulty with short-term memory, and repeatedly asked the same questions during his visit. His also called prior to his visit to update on his memory issues and to coordinate care for him. She is not with him today and she had to be at work. Mr. Scott is a very pleasantgentleman and does note that he frequently forgets things and even stated that he lost on his way here this morning. He gets frustrated with his memory loss and also notes he has had some mood swingsafter the surgery. He is to be fully independent and had a job working for [employer] for several years. He is working on trying to get a part-time job so that he can feel more fulfilled and for both his mental and physical health. As a result of the memory loss, he has trouble taking his medications regularly. He takes oral medications and his last A1C was 10.3 in November of 2015. He follows with his pcp for this. Past medical history, medications, allergies, past surgical, social and family history were reviewed and noted in [facility]. The intake form was reviewed and signed. Patient Active Problem List Diagnosis Date Noted ??? Hypothyroidism 01/22/2013 Priority: Medium ??? Osteoarthritis of left hip 07/06/2014 ??? 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 Arthritis ??? Back pain ??? Diabetes mellitus ??? Hypothyroidism ??? Wears glasses Past Surgical History Procedure Laterality Date ??? Brain surgery s/p tumor Social History Substance Use Topics ??? Smoking status: Never Smoker ??? Smokeless tobacco: Not on file ??? Alcohol use No Family History Problem Relation Age of Onset ??? Stroke Mother 71 ??? Cancer Father 65 lung cancer Current Outpatient Prescriptions Medication Sig Dispense Refill ??? blood glucose (FREESTYLE TEST) test strips 1 Strip by misc (non-drug; combo route) route 2 times daily 100 Each 1 ??? blood glucose meter (FREESTYLE FREEDOM LITE) Test FS BID. 1 Each 0 ??? cephALEXin (KEFLEX) 500 mg capsule Take 1 Cap by mouth 4 times daily for 7 days. 28 Cap 0 ??? glimepiride (AMARYL) 2 mg tablet [...] is 188 cm (74.02) and weight is 115.7 kg (255 lb 1.2 oz) (abnormal). PHYSICAL EXAM: General: AO x 3, NAD Lower extremity: RLE: DP and PT pulses 2 out of 4. Skin temperature gradient within normal limits. Capillary filling time less than 3 seconds to toes 1, 3, 4, 5. Second toe is edematous and with mildlocalized erythema. Softening from where edema is resolving noted around the base. Ulcer distal tipof the toe measuring approximately 1 x 0.2 cm. Probes to bone. Mild serosanguinous drainage expressed. No purulence expressed. No nail present. No malodor. Mild interdigital maceration. Manual muscletesting 5 out of 5. Protective sensation intact via stems Debbie monofilament 10 out of 10. ASSESSMENT: 1. Type 2 diabetes mellitus without complication, without long-term current use of insulin GENERIC ORTHO VENDOR DME 2. Acute osteomyelitis of right foot GENERIC ORTHO VENDOR DME Other Orders Placed This Visit Procedures ??? Generic Ortho Vendor DME PLAN: - All the questions were answered and the patient was encouraged to call the clinic with any questions / concerns. Patient voices understanding and agrees with the plan. Cc: Requesting Provider - Dr. Batres PCP - Jason Batres Portions of this document have been prepared with speech recognition software or keyboard data technician techniques. Minor irregularities or keyboarding misprints may be present * Debby Webb LPN - 03/15/2016 0830 EST Patient Education Topic: pre-op Method: Handout and Verbal Taught to: Patient Barriers: Cognitive and Physical Outcomes: requires assistance and verbalized understanding Signature:DEBBY WEBB LPN * Angelina Gonzales DPM - 03/15/2016 0830 EST Cont from previous note 03/15: PLAN: 1. Right 2nd toe ulcer, osteomyelitis -X-rays, labs, culture results reviewed from ED visit. X-rays show destruction of the distal phalanx of the 2nd toe. White count WNL, inflammatory markers mildly elevated. Culture from the bone/tissue growing MSSA, bacteroides. Wound inspected- probes to bone, and toe edematous. We discussed these findings- concerning for osteomyelitis of the 2nd toe. We discussed treatment options. Recommending partial toe amputation at this time, due to bone infection and chronicity. I reviewed all risks and benefits of this, including infection, recurrence, problems with wound healing, residual edema. He is in agreement with this. We will plan to have this done in the next week. Will coordinate getting pre op clearance from his pcp. To perform daily dressing changes with betadine and DSD, and to wear surgical shoe when ambulating at home. Ok to wear boots when walking outside. I am changing his antibiotics due to the culture results, and discussed this with ID, and he will pick these up today- augmentin 875/125 mg BID. We reviewed signs of worsening infection including nausea, vomiting, fever, chills, increasing redness or drainage, and he knows to report to ED if any concern. We also discussedthe post op course- need to wear surgical shoe post op, with plan to keep dressings clean dry and intact for two weeks prior to removing the sutures. We also had a long discussion with regards to renan-operative planning and his memory loss. I am going to coordinate this with his and pcp. He may need VNA for assistance at home, while his works. He feels comfortable wearing the surgical shoe renan-operatively, and we discussed how to walkin this so he does not trip. I spent a total of 45 minutes in face to face time with this patient today and 30 minutes of that time was spent in counseling and coordination of care as described in the progress note. All the questions were answered and the patient was encouraged to call the clinic with any questions / concerns. Patient voices understanding and agrees with the plan. Cc: Requesting Provider - Dr. Batres PCP - Jason Batres Portions of this document have been prepared with speech recognition software or keyboard data technician techniques. Minor irregularities or keyboarding misprints may be present documented in this encounter Plan of Treatment Not on file documented as of this encounter Visit Diagnoses Diagnosis Type 2 diabetes mellitus without complication, without long-term current use of insulin ([facility])- Primary Acute osteomyelitis of right foot ([facility]) Acute osteomyelitis, ankle and foot documented in this encounter Discontinued Medications Medication Sig Discontinue Reason Start Date End Da te cephALEXin (KEFLEX) 500 mg capsule Take 1 Cap by mouth 4 times daily for 7 days. Alternate therapy 03/09/2016 03/15/2016 documented as of this encounter Orders Equipment Count Last Ordered Date First Orde red Date GENERIC ORTHO VENDOR DME 1 03/15/2016 documented in this encounter Care Teams Insurance Examiner Relationship Specialty Start Date End Date Jason Batres MD [address] [place] [address] PCP - General 07/27/11 12/31/23 documented as of this encounter
--- OUTSIDE RECORDS SUMMARY | 2024-02-28 16:54 | XMS_ITS | Encounter Summary ---
Author Organization [facility] Address [address] [place] [address] Care Team Providers Care Underground Conduit Installer Name Role Phone Jason Batres MD Primary Care Provi margarita Reason for Visit * Reason Comments Follow-up Right foot Encounter Details Date Type Department Care Team (Late st Contact Info) Description 11/08/2016 11:15 EDT Post-op Visit [facility] - [address] [address] Angelina Gonzales, [facility] [address] [place] [address] Ulcer of toe, right, limited to breakdown of skin ([facility]) (Primary Dx); Type 2 diabetes mellitus with diabetic polyneuropathy, with long-term current use of insulin ([facility]) Social History Tobacco Use Types Packs/Day Years [...] - - Weight 122 kg (269 lb) 11/08/2016 1133 EDT Height 188 cm (6' 2.02) 11/08/2016 1133 EDT Body Mass Index 34.52 11/08/2016 1133 EDT documented in this encounter Functional Status [...] 11/08/2016 11:33 EDT documented in this encounter Progress Notes * Angelina Gonzales DPM - 11/08/2016 1115 EDT Jeff Scott is a very pleasant 55 y.o. male patient who presents for follow up right great toe ulcer. He has been doing the dressing changes as instructed. He has been wearing the surgical shoe some at home, but admits to not wearing it as much as he probable should. Overall he is feeling well today- he denies any nausea, vomiting, fever, chills. He denies any drainage from the wound or any pain in the toe. Does get some mild pain occasionally when he puts a lot of pressure on it. Patient Active Problem List Diagnosis Date Noted [...] right great toe, measuring approximately 2 x 3 mm. No probe to bone. No surrounding erythema [...] Scott presents today for follow up right great toe ulcer. This is slightly improved in size from last visit. No signs of infection. He is going to continue with the daily dressing changes with the antibiotic ointment and DSD. I gave him some new supplies today. I will see him back in 3 weeks. Iencouraged him to use the surgical shoe more at home and rest and elevate the foot. He knows to call with any questions prior to follow up and is happy with this plan. Portions of this document have been prepared with speech recognition software or keyboard manager data techniques. Minor irregularities or keyboarding misprints may be present documented in this encounter Plan of Treatment Not on file documented as of this encounter Visit Diagnoses Diagnosis Ulcer of toe, right, limited to breakdown of skin ([facility])- Primary Type 2 diabetes mellitus with diabetic polyneuropathy, with long-term current use of insulin ([facility]) documented in this encounter Care Teams Underground Conduit Installer Relationship Specialty Start Date End Date Jason Batres MD [address] [place] [address] PCP - General 07/27/11 12/31/23 documented as of this encounter
--- OUTSIDE RECORDS SUMMARY | 2024-02-28 16:54 | XMS_ITS | Encounter Summary ---
Author Organization [facility] Address [address] [place] [address] Care Team Providers Care Chief Resource Officer Name Role Phone Jason Batres MD Primary Care Provi margarita Reason for Visit * Reason Comments Follow-up right foot Encounter Details Date Type Department Care Team (Late st Contact Info) Description 05/09/2016 9:15 EST Office Visit [facility]le [facility] - [address] [address] Angelina Gonzales, [facility] [address] [place] [address] Type 2 diabetes mellitus with diabetic neuropathy, with long-term current use of insulin ([facility]) (Primary Dx); Status post amputation of toe of right foot ([facility]) Social History Tobacco Use Types [...] Weight 120.2 kg (264 lb 15.9 oz) 05/09/2016 09 EST Height 188 cm (6' 2.02) 05/09/2016 0927 EST Body Mass Index 34.01 05/09/2016 0927 EST documented in this encounter [...] Progress Notes * Angelina Gonzales DPM - 05/09/2016 0915 EST Diagnosis: ICD-10-CM ICD-9-CM 1. Type 2 diabetes mellitus with diabetic neuropathy, with long-term current use of insulin E11.40 250.60 Z79.4 357.2 V58.67 2. Status post amputation of toe of right foot Z89.421 V49.72 S: Jeff Scott is a very pleasant 55 y.o. male patient who presents for follow up s/p right foot partial 2nd toe amputation (03/23/16). He states he has been doing very well. The scab over the 2nd toe flaked off and he has not had any open lesions or any pain in the toe. He has been wearing his normal shoes. He notes he wears them all the time and does not go barefoot around the house. His blood sugars have been well controlled. He and his check his feet daily. He presents today for final post op check, before returning to full activities. He notes his baseball season is coming up and is asking if it is ok to participate. Patient Active Problem List Diagnosis Date Noted [...] 2 times daily. 120 Tab 5 ??? HYDROcodone-acetaminophen (NORCO) 5-325 mg tablet Take 1-2 tabs PO q6h prn pain 20 Tab 0 ??? ibuprofen (MOTRIN) 200 mg tablet [...] 5. Status post partial second toe amputation. Healed well. No open lesions. No pain on palpation. No edema to the foot. Protective sensation intact. ASSESSMENT: 1. Type 2 diabetes mellitus with diabetic neuropathy, with long-term current use of insulin 2. Status post amputation of toe of right foot No orders of the defined types were placed in this encounter. PLAN: 1. S/p right foot partial 2nd toe amputation (03/23/16) -Healed well. Discussed findings with Mr. Scott. Ok to continue with activies as tolerated. Ok to resume sports. We discussed importance of wearing properly fitted shoes and checking feet daily due to the neuropathy. He is going to follow up in 3 months for high risk diabetic foot evaluation. I encouraged him to call sooner if he has any questions. All the questions were answered and the patient was encouraged to call the clinic with any questions / concerns. Patient voices understanding and agrees with the plan. Portions of this document have been prepared with speech recognition software or keyboard senior data architect techniques. Minor irregularities or keyboarding misprints may be present documented in this encounter Plan of Treatment Not on file documented as of this encounter Visit Diagnoses Diagnosis Type 2 diabetes mellitus with diabetic neuropathy, with long-term current use of insulin ([facility])- Primary Status post amputation of toe of right foot ([facility]) Lower limb amputation, other toe(s) documented in this encounter Care Teams Chief Resource Officer Relationship Specialty Start Date End Date Jason Batres MD [address] [place] [id number] PCP - General 07/27/11 12/31/23 documented as of this encounter
--- OUTSIDE RECORDS SUMMARY | 2024-02-28 16:54 | XMS_ITS | Encounter Summary ---
Author Organization [facility] Address [address] [place] [address] Care Team Providers Care Court Recorder Name Role Phone Jason Batres MD Primary Care Provi margarita Reason for Visit * Reason Comments Community Health Team Encounter Details Date Type Department Care Team (Late st Contact Info) Description 06/19/2016 Community Health Team Jason Bartes MD, [facility] [address] [place] [address] Odette Hector, [facility] [address] [place] [address] Social History Tobacco Use Types Packs/Day Years [...] Progress Notes * Odette Hector LICSW - 06/19/2016 0930 EDT Community Health Team Social Work Follow Up Visit Date of visit: 06/19/2016 Social Work follow up with Jeff Scott for connecting to community supports, original referral from Terry Batres MD. This is the 3rd encounter. SUBJECTIVE: Reviewed assessment and plan from previous visit with pt. Jeff states I can't tell you how excited I am to be able to work. OBJECTIVE: Comment(s): Jeff engages in conversation, takes notes to compensate for his memory issues, maintains eye contact. TOPIC OF CONVERSATION: Engaged patient in conversation related to positive behavior change, self- management, goal setting and action planning using motivational interviewing and active listening. Jeff is now working with Lupe Gonzalez at [facility]. She and Jeff were scheduled to meet with the security systems manager of the [employer] store in [place] however the appointment was cancelled and will be rescheduled for sometime this week. Together phoned Lupe at [facility] regarding next steps. Jeff is feeling positive about working. Discussed continuing to work on his negative self talk. Jeff would like to meet with T RD during his 's school break. He will talk with his about her schedule to see about making this happen. STAGE OF CHANGE: Action PATIENT IDENTIFIED GOALS: Find employment while maintaining his disability. Meet with T KAUSHAL and his . PLAN: Jeff will continue his work with Lupe from [facility] in hopes of starting work at the [employer] store in [place]. He will talk with his about her school vacation schedule and making an appointment with T RD. ADDITIONAL INFORMATION FOR PROVIDER: Patient's Primary Care Site: Dr. Batres Total Time: 45 min face to face 10 min charting Referral: no new Follow up: Follow up phone call in one month Status: Active JG Ray documented in this encounter Plan of Treatment Not on file documented as of this encounter Visit Diagnoses Not on filedocumented in this encounter Care Teams Court Recorder Relationship Specialty Start Date End Date Jason Batres MD [address] [place] [id number] PCP - General 07/27/11 12/31/23 documented as of this encounter
--- OUTSIDE RECORDS SUMMARY | 2024-02-28 16:54 | XMS_ITS | Encounter Summary ---
Author Organization [facility] Address [address] [place] [address] Care Team Providers Care Electronic Equipment Set Up Operator Name Role Phone Jason Batres MD Primary Care Provi margarita Reason for Visit * Reason Comments Follow-up toe amputation Encounter Details Date Type Department Care Team (Latest Contact Info) Description 04/07/2016 14:15 EST Office Visit [facility] Foot & Ankle Program - [address] [address] Angelina Gonzales [address] [place] [address] Acute osteomyelitis of right foot ([facility]) (Primary Dx); Type 2 diabetes mellitus with diabetic neuropathy, without long-term current use of insulin ([facility]) Social History Tobacco Use Types Packs/Day [...] Weight 120.2 kg (264 lb 15.9 oz) 04/07/2016 1400 EST Height 188 cm (6' 2.02) 04/07/2016 1400 EST Body Mass Index 34.01 04/07/2016 1400 EST documented in this encounter Functional Status [...] Progress Notes * Angelina Gonzales, DPM - 04/07/2016 1415 EST Images from the original note were not included. Diagnosis: ICD-10-CM ICD-9-CM 1. Acute osteomyelitis of right foot M86.171 730.07 2. Type 2 diabetes mellitus with diabetic neuropathy, without long-term current use of insulin E11.40 250.60 357.2 S: Jeff Scott is a 55 y.o. male patient who presents for follow up 2 weeks status post right foot partial second toe amputation. He has been doing well postoperatively. He states he did have to change the dressing and a couple times this week as it did get wet in the shower. He notes his changed it for him after he got out of the shower. He did not sit for long with a wet dressing on it. He has been taking the antibiotics. He believes he still has some left. He is not sure if he has been taking them as instructed but does think he has been. He denies any pain in the toe. Has been avoiding high impact activities and elevating the foot and wearing the surgical shoe. Denies any nausea, vomiting, fever, chills. Patient Active [...] noted preoperatively due to the tight coban bandage forming a small, dried hematoma (see pic). The toe is blanchable and there is no erythema- this is improving. The abrasion on the third toe has resolved. There is no pain on palpation. No edema to the foot. Protective sensation intact. After suture removal: ASSESSMENT: 1. Acute osteomyelitis of right foot 2. Type 2 diabetes mellitus with diabetic neuropathy, without long-term current use of insulin No orders of the defined types were placed in this encounter. PLAN: 1. 2 weeks s/p right foot partial 2nd toe amputation (03/23/16) -Healing well with no signs of infection. Abrasions dorsally and plantarly also improving today. Sutures removed. Dry dressing applied. To leave dressing clean dry and intact until Sunday and then okay to remove and start showering. Did discuss that when he does start showering, to lightly rinse the toe would not describe that it. Also to pat it dry after showering. To continue surgical shoe for another week. Next Sunday okay to stop the shoe and start wearing his regular sneakers. We discussedimportance of slowly increasing activity and wearing the shoes and not to overdo it at first. He also knows to finish his antibiotics which she should have only a day or so left. No need to refill the antibiotics after his finish. He is going to follow-up in 1 month, at which point we will considerordering diabetic shoes with custom insoles. We discussed importance of preventative foot care which she will be scheduled for next visit. Also reviewed the importance of blood glucose control and checking his feet daily. All the questions were answered and the patient was encouraged to call the clinic with any questions / concerns. Patient voices understanding and agrees with the plan. Portions of this document have been prepared with speech recognition software or keyboard oracle database architect techniques. Minor irregularities or keyboarding misprints may be present documented in this encounter Plan of Treatment Not on file documented as of this encounter Visit Diagnoses Diagnosis Acute osteomyelitis of right foot (HCC-CMS)- Primary Acute osteomyelitis, ankle and foot Type 2 diabetes mellitus with diabetic neuropathy, without long-term current use of insulin (HCC-CMS) documented in this encounter Care Teams Electronic Equipment Set Up Operator Relationship Specialty Start Date End Date Jason Batres MD [address] [place] [address] PCP - General 07/27/11 12/31/23 documented as of this encounter
--- OUTSIDE RECORDS SUMMARY | 2024-02-28 16:54 | XMS_ITS | Encounter Summary ---
Author Organization [facility] Address [address] [place] [address] Care Team Providers Care Crayon Sawyer Name Role Phone Jason Batres MD Primary Care Provi margarita Alexus De La O RN [facility] Internal Medicine, Primary Care Provi margarita Reason for Visit * Reason Comments Other Encounter Details Date Type Department Care Team (Late st Contact Info) Description 03/19/2017 Refill Jason Batres MD, PC [address] [place] [address] Jason Batres MD [address] [place] [phone] Other Social History Tobacco Use Types [...] MOUTH ONE TIME DAILY 90 Tab 03/19/2017 03/19/2017 documented in this encounter Plan of Treatment Not on file documented as of this encounter Visit Diagnoses Not on filedocumented in this encounter Discontinued Medications Medication Sig Discontinue Reason Start Date End Da te levothyroxine (SYNTHROID) 112 mcg tablet Take 1 Tab by mouth daily. Reorder 07/24/2016 03/19/2017 documented as of this encounter Additional Health Concerns Infection Onset Date Last Indicated Resolved Time R/O COVID-19 Comment:Negative swab 12/22/2020 12/22/2020 12/22/2020 021 7:17 EDT R/O COVID-19 Comment:Negative 02/17/2022 02/17/2022 02/18/2022 7:30 EST Rule-Out C. difficile 02/25/2022 02/25/20222021 12:00 EST R/O COVID-19 04/09/2022 04/09/2022 04/09/2022 16:3 2 EST documented as of this encounter Care Teams Crayon Sawyer Relationship Specialty Start Date End Date Jason Batres MD [address] [place] [address] PCP - General 07/27/11 12/31/23 [facility] Internal Medicine, Mp [address] [place] [address] PCP - General 01/01/24 Alexus De La O, pharmacoepidemiologist 04/18/22 08/13/23 documented as of this encounter
--- OUTSIDE RECORDS SUMMARY | 2024-02-28 16:54 | XMS_ITS | Encounter Summary ---
Author Organization [facility] Address [address] [place] [address] Care Team Providers Care Hand Tube Winder Name Role Phone Jason Batres MD Primary Care Provi margarita Reason for Visit * Reason Comments Community Health Team Encounter Details Date Type Department Care Team (Late st Contact Info) Description 05/09/2016 Community Health Team [facility] Adult Primary Care - [address] [address] Odette Hector, HAT BLOCK BENCH HAND [address] [place], [place] [id number] Social History Tobacco Use Types Packs/Day Years [...] Progress Notes * Odette Hector LICSW - 05/09/2016 1206 EST Jeff no-showed for his SW follow up appointment. Was unable to reach him via phone. [facility], [address] [place] [address]. [address], [place] Total Time: 5 min Referral: none Follow up: Admin, please contact patient about rescheduling. Thank you. Status: Active JG Ray documented in this encounter Plan of Treatment Not on file documented as of this encounter Visit Diagnoses Not on filedocumented in this encounter Care Teams Hand Tube Winder Relationship Specialty Start Date End Date Jason Batres MD [address] [place] [address] PCP - General 07/27/11 12/31/23 documented as of this encounter
--- OUTSIDE RECORDS SUMMARY | 2024-02-28 16:54 | XMS_ITS | Encounter Summary ---
Author Organization [facility] Address [address] [place] [address] Care Team Providers Care Director Of Public Relations Name Role Phone Jason Batres MD Primary Care Provi margarita Reason for Visit * Reason Comments Follow-up Swollen right leg Encounter Details Date Type Department Care Team (Late st Contact Info) Description 11/24/2016 8:30 EDT Office Visit [facility] Foot & Ankle Program - [address] [address] Angelina Gonzales, [facility] [address] [place] [address] Type 2 diabetes mellitus with diabetic polyneuropathy, with long-term current use of insulin ([facility]) (Primary Dx); Ulcer of toe, right, limited to breakdown of skin ([facility]) Social History Tobacco Use Types [...] - - Weight 122 kg (269 lb) 11/24/2016 0830 EDT Height 188 cm (6' 2.02) 11/24/2016 0830 EDT Body Mass Index 34.52 11/24/2016 0830 EDT documented in this encounter Functional Status [...] 11/24/2016 8:30 EDT documented in this encounter Progress Notes * Angelina Gonzales DPM - 11/24/2016 0830 EDT Jeff Scott is a very pleasant 55 y.o. male patient who presents for an acute visit due to concern of right lower extremity swelling. He states that his son noticed it this past week and was worried and encouraged him to have it evaluated. Jeff notes that he has noticed it for a long time, over a year. It is not painful. It is not warm. It has not changed much since he has noticed it. Overall he is feeling well today. He denies any nausea, vomiting, fever, chills. He has been changing the dressing to the right great toe as instructed. He notes he is running out of dressings and need some new ones. He has been fairly active and on his feet, cutting firewood. Patient Active Problem List Diagnosis Date Noted [...] with long-term current use of insulin 2. Ulcer of toe, right, limited to breakdown of skin No orders of the defined types were placed in this encounter. PLAN: Mr. Scott presents today for an acute visit due to concern of right lower extremity swelling. This has been going on for over a year. He does not have any pain in the right calf. No increased skin temperature here. Very minimal edema when compared to left lower extremity. We discussed these findings. No concern for infection or blood clot. May be due to medications or other medical problems. I encouraged him to discuss this with his primary care doctor. I also evaluated the right great toe ulcer. Not much improvement though it is stable with no signs of infection. I made some offloading padding for his inserts today. I gave him some new dressings. I am going to see him for follow-up for this at his scheduled appointment next week. May consider getting him some custom accommodative insolesat that visit. He knows to call with any questions prior to follow-up and is happy with this plan. Portions of this document have been prepared with speech recognition software or keyboard data miner techniques. Minor irregularities or keyboarding misprints may be present documented in this encounter Plan of Treatment Not on file documented as of this encounter Visit Diagnoses Diagnosis Type 2 diabetes mellitus with diabetic polyneuropathy, with long-term current use of insulin (HCC-CMS)- Primary Ulcer of toe, right, limited to breakdown of skin (HCC-CMS) documented in this encounter Care Teams Director Of Public Relations Relationship Specialty Start Date End Date Jason Batres MD [address] [place] [address] PCP - General 07/27/11 12/31/23 documented as of this encounter
--- OUTSIDE RECORDS SUMMARY | 2024-02-28 16:54 | XMS_ITS | Encounter Summary ---
Author Organization [facility] Address [address] [place] [address] Care Team Providers Care Lean Manufacturing Specialist Name Role Phone Jason Batres MD Primary Care Provi margarita Reason for Visit * Reason Onset Date Comments Medications Refill 10/20/2016 Encounter Details Date Type Department Care Team (Late st Contact Info) Description 10/20/2016 Refill Jason Batres MD, PC [address] [place], [place] [id number] Jason Batres MD [address] [place] [phone] Medications Refill Social History Tobacco Use [...] Filled Start Date End Date exenatide microspheres 2 mg/0.65 mL pen injector Inject 2 mg into the skin every 7 days. 4 Each 10/20/2016 11/24/2016 documented in this encounter Miscellaneous Notes * Telephone Encounter - Aviva Alvarez RN - 10/20/2016 1416 EDT Patient is aware and will ask for the help of the pharmacist. If he needs further assistance he will call this office to schedule and appointment. Aviva Alvarez RN * Telephone Encounter - Aviva Alvarez RN - 10/20/2016 1156 EDT Message left for patient to call back. Aviva Alvarez RN * Telephone Encounter - Jason Batres MD - 10/20/2016 1054 EDT Trulicity and Tanzeum have been denied, but it looks like his insurance will cover [employer]. Please call Jeff to let him know I have sent in the new weekly injection and he can pick it up andstart it. Instructions are different than what I have shown him before so he can ask the pharmacist, check [employer] or if he has any problems- call for a visit to review the pen dosing. Jason Batres MD documented in this encounter Plan of Treatment Not on file documented as of this encounter Visit Diagnoses Not on filedocumented in this encounter Discontinued Medications Medication Sig Discontinue Reason Start Date End Da te albiglutide (TANZEUM) 30 mg/0.5 mL pen injector Inject 30 mg into the skin every 7 days. 10/16/2016 10/20/2016 documented as of this encounter Care Teams Lean Manufacturing Specialist Relationship Specialty Start Date End Date Jason Batres MD [address] [place] [address] PCP - General 07/27/11 12/31/23 documented as of this encounter
--- OUTSIDE RECORDS SUMMARY | 2024-02-28 16:54 | XMS_ITS | Encounter Summary ---
Author Organization [facility] Address [address] [place] [address] Care Team Providers Care Wire Tinner Name Role Phone Jason Batres MD Primary Care Provi margarita Encounter Details Date Type Department Care Team (Late st Contact Info) Description 01/17/2017 Community Health Team Jason Batres MD, PC [address] [place], [place] [address] Yael Blackburn, RD [address] [place] [address] Social History Tobacco Use Types [...] Progress Notes * Yael Blackburn, RD - 01/17/2017 7268 EST [facility] Health Team House Builder Follow-up Visit Name:Jeff Scott Today's Date: 01/24/2017 Date of visit: 01/17/2017 SUBJECTIVE: Jeff Scott is a 56 y.o. male initially referred to the [facility] Health Team for diabetes self-management education by No ref. provider found. Jeff was last seen on and returns today for a follow-up CHT CDE visit at [facility], [address] [place] [address]. [address], [place] accompanied by alone. This is the ninth encounter. 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 Pt states that he has not decreased soda but he is willing to try diet soda. Pt states that when he eats at the farm he isn't always eating healthy because of the food choices offered by his employer OBJECTIVE: Diabetes type: Type 2 Vitals: There [...] not taking at all. CURRENT INSULIN PROGRAM: As noted above. Pt is struggling to remember his weekly injectable so does not always do it on the same day INJECTIONS: Patient reports that: Other injectables: remembers all Injection Technique: Patients reports: no problems with shots Site Selection: Patient is choosing appropriate sites: Patient is rotating: Patient is discarding sharps: Safely DIABETES MEAL PLANNING: Type of meal planning: Consistent Carbohydrate Carbohydrate targets: 3 balanced meals daily with low carbohydrate snacks Follows meal plan: Greater than 75% of the time PRESENT MEAL PATTERN: Comments: Pt is eating lsome high carbohydrate meals when eating at the farm. Current eating habits:eats 3 meals plus snacks. 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 With meter: One touch Barriers to monitoring: None Home Blood Glucoses Running: Date AM PM 01/12 161 173 01/14 147 182 01/15 152 169 01/16 168 164 HYPOGLYCEMIA MANAGEMENT: Hypoglycemic event: None reported Patient is carrying a source of rapid acting CHO: no Patient has a current supply of glucagon? No Patient is wearing Medic Alert: No STRESS MANAGEMENT/COPING SKILLS: Pt reports appropriate stress management/coping skills ASSESSMENT: Jeff was seen today for follow up mnt for type 2 diabetes. Pt continues to drink soda and eat highcarbohydrate snacks that are likely contributing to home blood glucose results outside of recommended range. Current fasting blood glucose is generally around 160 with most post prandial blood glucose within range of less than 180. Pt could benefit from improved diet to lower blood glucose. Will follow up in 2 weeks. Pt agrees to switch to beverages with no added sugar DIABETES SELF-MANAGEMENT EDUCATION: Engaged pt in conversation related to positive behavior change, self-management, goal setting and action planning using motivational interviewing and active listening. During this session we addressed the following topics: Healthy eating for improved glycemic control. Suggestions for remembering to take medication regularly and as ordered Mindful eating to avoid snacks that are high in carbohydrate Educational materials provided:none Method: verbal Taught to: Patient Barriers to education: no barriers Psychosocial, cultural, or economic barriers to care:none. Outcomes: Pt verbalized understanding Stage of Change: Preparation DIABETES SELF-MANAGEMENT RECOMMENDATIONS: - avoid high carbohydrate snacks - remember medication once weekly PATIENT IDENTIFIED GOALS: Low carbohydrate snack in the evening PATIENT'S PLAN: Follow up with RD in 2 weeks. Current Visit Location: Dr. Batres Total Time: 60 minutes in person, 15 minutes charting Referral: none Follow up: Date: Monday, January 30, 2017 Time: 11 AM With: Yael Blackburn Registered Dietitian Location: [address] Status: Active Yael Blackburn RD 01/24/2017 14:41 documented in this encounter Plan of Treatment Not on file documented as of this encounter Visit Diagnoses Not on filedocumented in this encounter Care Teams Wire Tinner Relationship Specialty Start Date End Date Jason Batres MD [address] [place] [address] PCP - General 07/27/11 12/31/23 documented as of this encounter
--- OUTSIDE RECORDS SUMMARY | 2024-02-28 16:55 | XMS_ITS | Encounter Summary ---
Author Organization [facility] Address [address] [place] [address] Care Team Providers Care Commercial Hvac Service Technician Name Role Phone Jason Batres MD Primary Care Provi margarita Reason for Visit * Reason Comments Community Health Team Encounter Details Date Type Department Care Team (Late st Contact Info) Description 02/14/2016 Community Health Team Jason Batres MD, PC [address] [place], [place] [address] Odette Hector LICSW [address] [place] [address] Social History Tobacco Use Types Packs/Day Years [...] :45 EDT documented as of this encounter Progress Notes * Odette Hector LICSW - 02/14/2016 3710 EST Community Health Team Social Work Initial Encounter Date of visit: 02/14/2016 Social Work initial encounter with Jeff Scott for stress reduction, original referral from Yael EASLEY. ASSESSMENT Housing: Jeff resides in [place] with his of 26 years. Transportation: Drives self. Employment/Financial: Disabled. 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 This has affected his balance and memory. He would love to work however he and his worry about the impact this would have on his disability benefits. Health Insurance: BCBS and Medicare A/B Family Support: (two sons, 21 and 24 yo). Community/Agency Support: Neighbors Other: CHT intake: Completed Insurance BCBS medicare Preferred form of communication PHONE Are you a tobacco user? No BEHAVIORAL HEALTH SCREENING: Comment(s): Complete: PHQ9, 7 and GAD7, 1. TOPIC OF CONVERSATION: Engaged patient in conversation related to positive behavior change, self- management, goal setting and action planning using motivational interviewing and active listening. Jeff talks about how his life has changed since developing a brain tumor. He was a high functioning, productive member of society. Jeff no longer feels useful. In the summer time he mows his lawn and a neighbors. He enjoys stacking wood for the wood stove and clearing snow. Jeff enjoys going for walks and playing baseball. He would love to work and had attempted to secure employment at the local [employer] store however his was concerned he would lose his disability benefits and he therefore was too afraid to move f orward. Discussed support from [facility]. Jeff was not aware of the program and their support with helping people with special needs find employment while maintaining needed benefits. Phoned [facility] and requested information be sent to Jeff's home so he is able to review with his . Jeff feels work would change everything for him giving his life purpose, having a schedule/responsibility and connecting with others in the community. Wrote down information (request from Jeff given his memory issues) we discussed at today's meeting to share with his STAGE OF CHANGE: Action PATIENT IDENTIFIED GOALS: Jeff would like to work but needs to maintain his disability benefits. PLAN: [facility] will send information to Jeff to review with his . Follow up 03/14/16, 2PM. ADDITIONAL INFORMATION FOR PROVIDER: Patient's Primary Care Site: Dr. Batres Total Time: 50 min face to face 15 min charting Referral: [facility] Follow up: Date: Monday, March 14, 2016 Time: 2 PM With: Odette Hector Rail Maintenance Worker Location: Dr. Batres's Status: Active JG Ray documented in this encounter Plan of Treatment Not on file documented as of this encounter Visit Diagnoses Not on filedocumented in this encounter Care Teams Commercial Hvac Service Technician Relationship Specialty Start Date End Date Jason Batres MD [address] [place] [address] PCP - General 07/27/11 12/31/23 documented as of this encounter
--- OUTSIDE RECORDS SUMMARY | 2024-02-28 16:55 | XMS_ITS | Encounter Summary ---
Author Organization [facility] Address [address] [place] [address] Care Team Providers Care Coordinator Of Placement Name Role Phone Jason Batres MD Primary Care Provi margarita Reason for Visit * Reason Comments Wound Check Encounter Details Date Type Department Care Team (Late st Contact Info) Description 03/14/2016 16:00 EST Office Visit Jason Batres MD, PC [address], [place] [phone] Jason Batres MD [address] [place] [phone] Acute osteomyelitis of right foot ([facility]) (Primary Dx); Type 2 diabetes mellitus without complication, without long-term current use of insulin ([facility]) Social History Tobacco Use Types [...] Reading Time Taken Comments Blood Pressure 114/74 03/14/2016 1508 EST Pulse 9 03/14/2016 1508 EST Temperature 37.2 ??C (99 ??F) 03/14/2016 1508 EST Respiratory Rate - - Oxygen Saturation 98% 03/14/2016 1508 EST Inhaled Oxygen Concentration - - Weight - - Height - - Body Mass Index - - documented in this encounter Patient Instructions * Patient Instructions* Jason Batres MD - 03/14/2016 16:00 EST Wet to dry dressing twice per day Get 2-3 small pieces of guaze wet with the normal saline (pour the saline onto the guaze, do NOT dip the guaze into the saline) Place this guaze on the top of the toe where there is the whitish area Place some dry guaze over that to cover the wet guaze Use tape to secure the guaze in place documented in this encounter Ordered Prescriptions Prescription Sig Dispense Quantity Refills Last Filled Start Date End Date glimepiride (AMARYL) 2 mg tablet Take 2 Tabs by mouth 2 times daily. 120 Tab 5 03/14/2016 11/29/2016 documented in this encounter Progress Notes * Jason Batres MD - 03/14/2016 1600 EST Subjective: Patient ID: Jeff Scott is an 55 y.o. male. Chief Complaint Patient presents with ??? Wound Check HPI Jeff is here to follow-up on his right second toe wound he was seen in the emergency department for this on March 09. He also had a consultation with orthopedic surgery. He has a scheduled follow-up with them tomorrow. He originally injured the right toe in December 2015 when he stubbed the toe [place]. He was getting with barefoot which he says he won't do any more. the toe never really healed and was getting worse and his son saw Huseyin and suggested he go to see a doctor and went to the emergency room on March 09. He had x-rays which showed osteomyelitis and did have cultures takenas well. Cultures did grow staph aureus. He was given cephalexin for one week and continues to takethis. He and his were instructed on dressing changes however his called earlier in the week and apparently is trying to do these dressing changes on his own and he is unable to reach the bottom of the toe to change things. We are changing the dressing about once per day instead of every 12 hours. He has not had any fevers or chills he does not have any pain of the toe due to his diabetic neuropathy. Social Current Outpatient Prescriptions on File Prior [...] for 7 days. 28 Cap 0 ??? ibuprofen (MOTRIN) 200 mg tablet [...] 90 Tab 3 No current facility-administered medications on file prior to visit. No Known Allergies Review of Systems Constitutional: Negative for chills and fever. - See HPI Objective: Visit Vitals ??? BP 114/74 ??? Pulse (!) 9 ??? Temp 37.2 ??C (99 ??F) (Tympanic) ??? SpO2 98% Physical Exam Skin: Right second digit erythematous and swollen with open area at the tip of the digit with no discharge, but yellow, macerated tissue Assessment: Plan: 1. Osteomyelitis of right second digit I showed him how to perform a wet to dry dressing today. Suggested that his help with this andwhen she called earlier in the week she was also told that he could not come here every day for dressing changes and he would need some help with this at home. He is going to be seeing orthopedic surgery tomorrow so we'll follow up with them as well. Jeff was worried and asked several times if he was when he needs surgery to be deep toe. I told him if we can continue with good dressing changes and antibiotics we are trying to avoid this but this is why good local wound care is important. 2. Diabetes We clarified the dose of this and he is taking two 2 mg tablets twice per day and not one tablet twice per day. I like this will be reevaluated next week as I think he will need help with this to stay on top of that so he is losing my nurse practitioner next week. This note was prepared with voice recognition software, please excuse any maintenance coordinator errors. I spent 30 minutes of face-face time with the patient, over half of it was in counseling Jason Batres MD documented in this encounter Plan of Treatment Not on file documented as of this encounter Visit Diagnoses Diagnosis Acute osteomyelitis of right foot ([facility])- Primary Acute osteomyelitis, ankle and foot Type 2 diabetes mellitus without complication, without long-term current use of insulin ([facility]) documented in this encounter Discontinued Medications Medication Sig Discontinue Reason Start Date End Da te glimepiride (AMARYL) 2 mg tablet Take 1 Tab by mouth 2 times daily. Reorder 03/10/2016 03/14/2016 documented as of this encounter Care Teams Coordinator Of Placement Relationship Specialty Start Date End Date Jason Batres MD [address] [place] [address] PCP - General 07/27/11 12/31/23 documented as of this encounter
--- OUTSIDE RECORDS SUMMARY | 2024-02-28 16:55 | XMS_ITS | Encounter Summary ---
Author Organization [facility] Address [address] [place] [address] Care Team Providers Care Senior Managing Director Name Role Phone Jason Batres MD Primary Care Provi margarita Alexus De La O RN Unavailable [facility] Internal Medicine, Primary Care Provi margarita Reason for Visit * Reason Comments Other Encounter Details Date Type Department Care Team (Late st Contact Info) Description 03/10/2016 Refill Jason Batres MD, PC [address] [place], [place] [phone] Jason Batres MD [address] [place] [phone] Other Social History Tobacco Use Types [...] :45 EDT documented as of this encounter Ordered Prescriptions Prescription Sig Dispense Quantity Refills Last Filled Start Date End Date metFORMIN (GLUCOPHAGE) 500 mg tablet TAKE TWO TABLETS BY MOUTH TWICE DAILY 360 Tab 5 03/10/2016 8 glimepiride (AMARYL) 2 mg tablet Take 1 Tab by mouth 2 times daily. 60 Tab 5 03/10/2016 7 documented in this encounter Plan of Treatment Not on file documented as of this encounter Visit Diagnoses Not on filedocumented in this encounter Discontinued Medications Medication Sig Discontinue Reason Start Date End Da te glimepiride (AMARYL) 2 mg tablet Take 1 Tab by mouth 2 times daily Duplicate Therapy 06/18/2014 03/10/2016 metFORMIN (GLUCOPHAGE) 500 mg tablet Take 2 Tabs by mouth 2 times daily Reorder 02/22/2015 03/10/2016 documented as of this encounter Additional Health Concerns Infection Onset Date Last Indicated Resolved Time R/O COVID-19 Comment:Negative swab 12/22/2020 12/22/2020 12/22/2020 021 7:17 EDT R/O COVID-19 Comment:Negative 02/17/2022 02/17/2022 02/18/2022 7:30 EST Rule-Out C. difficile 02/25/2022 02/25/20222021 12:00 EST R/O COVID-19 04/09/2022 04/09/2022 04/09/2022 16:3 2 EST documented as of this encounter Care Teams Senior Managing Director Relationship Specialty Start Date End Date Jason Batres MD [address] [place] [address] PCP - General 07/27/11 12/31/23 [facility] Internal Medicine, Mp [address] [place] [address] PCP - General 01/01/24 Alexus De La O, black oxide operator 04/18/22 08/13/23 documented as of this encounter
--- OUTSIDE RECORDS SUMMARY | 2024-02-28 16:55 | XMS_ITS | Encounter Summary ---
Author Organization [facility] Address [address] [place] [address] Care Team Providers Care Door Captain Name Role Phone Jason Batres MD Primary Care Provi margarita Reason for Referral * Radiology Services (Routine) - Closed Specialty Diagnoses / Procedures Referred By Contac t Referred To Contact Diagnoses Hip pain Procedures PELVIS 1 OR 2 VIEWS Catalino Jones MD Referral ID Status Reason Start Date Expiration Date Visits Re quested Visits Authorized [id number] Closed 07/05/2014 1 1 * Radiology Services (Routine) - Closed Specialty Diagnoses / Procedures Referred By Contac t Referred To Contact Diagnoses Hip pain Procedures HIP UNILATERAL 2 OR MORE VIEWS Catalino Jones MD Referral ID Status Reason Start Date Expiration Date Visits Re quested Visits Authorized [id number] Closed 07/05/2014 1 1 Encounter Details Date Type Department Care Team (Late st Contact Info) Description 06/30/2014 Orders Only [facility] Total Joint Program - [address] [place], [place] [phone] Catalino Jones MD Hip pain (Primary Dx) Social History Tobacco Use [...] :45 EDT documented as of this encounter Plan of Treatment Not on file documented as of this encounter Procedures Procedure Name Priority Date/Time Associated Diagnosis Comments PELVIS 1 OR 2 VIEWS Routine 07/06/2014 9 :01 EDT Hip pain HIP UNILATERAL 2 OR MORE VIEWS Routine 07/06/2014 9:01 EDT Hip pain documented in this encounter Results * PELVIS 1 OR 2 VIEWS (07/06/2014 9:01 EDT) Anatomical Region Laterality Modality Other 07/06/2014 9:01 EDT 07/06/2014 9:38 EDT Narrative 07/06/2014 9:38 EDT HIP UNILATERAL 2 OR MORE VIEWS, PELVIS 1 OR 2 VIEWS ??07/06/2014 9:01 AM ?? Signs and Symptoms/Comments: ?? 719.45-Pain in joint, pelvic region and srwom-[id number]-2-CM; left hip pain . Compare examination January 2013 Findings: Severe osteoarthritic changes in the left hip appears similar to that of the previous examination. There are moderate degenerative changes in the right hip. Mild degenerative changes are present in both SI joints. Procedure Note Promise Valenzuela MD - 07/06/2014 HIP UNILATERAL 2 OR MORE VIEWS, PELVIS 1 OR 2 VIEWS 07/06/2014 9:01 AM Signs and Symptoms/Comments: 719.45-Pain in joint, pelvic region and rpjup-ZBY-2-CM; left hip pain . Compare examination January 2013 Findings: Severe osteoarthritic changes in the left hip appears similar to that of the previous examination. There are moderate degenerative changes in the right hip. Mild degenerative changes are present in both SI joints. Catalino Jones MD IMG DIAGNOSTIC IMAGING ORDERABLES Final Result * HIP UNILATERAL 2 OR MORE VIEWS (07/06/2014 9:01 EDT) Anatomical Region Laterality Modality Other 07/06/2014 9:01 EDT 07/06/2014 9:38 EDT Narrative 07/06/2014 9:38 EDT HIP UNILATERAL 2 OR MORE VIEWS, PELVIS 1 OR 2 VIEWS ??07/06/2014 9:01 AM ?? Signs and Symptoms/Comments: ?? 719.45-Pain in joint, pelvic region and cxwmi-HTK-9-CM; left hip pain . Compare examination January 2013 Findings: Severe osteoarthritic changes in the left hip appears similar to that of the previous examination. There are moderate degenerative changes in the right hip. Mild degenerative changes are present in both SI joints. Procedure Note Promise Valenzuela MD - 07/06/2014 HIP UNILATERAL 2 OR MORE VIEWS, PELVIS 1 OR 2 VIEWS 07/06/2014 9:01 AM Signs and Symptoms/Comments: 719.45-Pain in joint, pelvic region and bkmqf-EBZ-9-CM; left hip pain . Compare examination January 2013 Findings: Severe osteoarthritic changes in the left hip appears similar to that of the previous examination. There are moderate degenerative changes in the right hip. Mild degenerative changes are present in both SI joints. Catalino Jones MD IMG DIAGNOSTIC IMAGING ORDERABLES Final Result documented in this encounter Visit Diagnoses Diagnosis Hip pain- Primary Pain in joint, pelvic region and thigh documented in this encounter Care Teams Door Captain Relationship Specialty Start Date End Date Jason Batres MD [address] [place] [address] PCP - General 07/27/11 12/31/23 documented as of this encounter
--- OUTSIDE RECORDS SUMMARY | 2024-02-28 16:55 | XMS_ITS | Encounter Summary ---
Author Organization [facility] Address [address] [place] [address] Care Team Providers Care Employee Benefits Coordinator Name Role Phone Jason Batres MD Primary Care Provi margarita Reason for Visit * Reason Onset Date Comments Appointment Related 01/21/2016 Encounter Details Date Type Department Care Team (Late st Contact Info) Description 01/21/[address], [address] [place], [place] [phone] Cht, Admin Appointment Related Social History Tobacco [...] :45 EDT documented as of this encounter Miscellaneous Notes * Telephone Encounter - Sasha Ruiz - 01/21/2016 1511 EST LVM inviting patient to schedule an appointment with CHT SW - referred by CHT KAUSHAL. documented in this encounter Plan of Treatment Not on file documented as of this encounter Visit Diagnoses Not on filedocumented in this encounter Care Teams Employee Benefits Coordinator Relationship Specialty Start Date End Date Jason Batres MD [address] [place] [address] PCP - General 07/27/11 12/31/23 documented as of this encounter
--- OUTSIDE RECORDS SUMMARY | 2024-02-28 16:55 | XMS_ITS | Encounter Summary ---
Author Organization [facility] Address [address] [place] [address] Care Team Providers Care Instructor Watch Assembly Name Role Phone Jason Batres MD Primary Care Provi margarita Reason for Visit * Reason Onset Date Comments Pre-op Exam 01/04/2015 Encounter Details Date Type Department Care Team (Late st Contact Info) Description 01/04/2015 Orders Only [facility] Total Joint Program [place] [address] Sandie Sanchez LPN [address] [place] [address] Left hip pain (Primary Dx); Primary osteoarthritis of left hip Social History Tobacco Use Types Packs/Day Years [...] Name Priority Date/Time Associated Diagnosis Comments SURGICAL MRSA/MSSA Routine 01/04/2015 13 :20 EST Left hip pain Primary osteoarthritis of left hip documented in this encounter Results * SURGICAL MRSA/MSSA (01/04/2015 13:20 EST) Result No Staphylococcus aureus detected by PCR. 01/05/2015 11:39 EST [facility] [address] / Unknown 01/04/2015 13:20 EST 01/04/2015 20:50 EST us Catalino Jones MD MICROBIOLOGY - GENERAL ORDERABLES Final Result Performing Organization Address City/State/[facility] Co de Phone Number [facility] [address] [place] [address] documented in this encounter Visit Diagnoses Diagnosis Left hip pain- Primary Pain in joint, pelvic region and thigh Primary osteoarthritis of left hip Primary localized osteoarthrosis, pelvic region and thigh documented in this encounter Care Teams Instructor Watch Assembly Relationship Specialty Start Date End Date Jason Batres MD [address] [place] [address] PCP - General 07/27/11 12/31/23 documented as of this encounter
--- OUTSIDE RECORDS SUMMARY | 2024-02-28 16:55 | XMS_ITS | Encounter Summary ---
Author Organization [facility] Address [address] [place] [address] Care Team Providers Care Asphalt Tar And Gravel Roofer Name Role Phone Jason Batres MD Primary Care Provi margarita Reason for Visit * Reason Onset Date Comments Pre-op Exam 07/17/2014 Encounter Details Date Type Department Care Team (Late st Contact Info) Description 07/17/2014 Orders Only [facility] Total Joint Program - [address] [place], [place] [phone] Sandie Sanchez LPN [address] [place] [address] Pain in joint, pelvic region and thigh (Primary Dx); Localized osteoarthrosis not specified whether primary or secondary, pelvic region and thigh; Diabetes (CMS-HCC) (HCC-CMS) Social History Tobacco Use Types [...] documented as of this encounter Results * PRE-OP BLOOD BANK DRAW (12/29/2014 10:14 EDT) Pre-Op Blood Bank Lab Draw SPECIMEN RECEIVED ACCEPTABLE 12/29/2014 12:32 EDT [facility] BLOOD SPECIMEN / Unknown 12/29/2014 10:14 EDT 12/29/2014 10:33 EDT us Catalino Jones MD BLOOD BANK TESTS Final Result Performing Organization Address [facility]/ZIP Co de Phone Number [facility] [address] [place] [address] * HEMOGLOBIN A1C (12/29/2014 10:14 EDT) Hemoglobin A1C 8.3 % 12/29/2014 15:25 EDT [facility] Comment: Reference Range: <5.7% Normal 5.7-6.4% Increased risk for diabetes =>6.5% Diagnostic for diabetes (if confirmed) The A1c goal for non adults in general is <7%. The A1c goal for selected patients may be significantly lower than 7% if this can be achieved without significant hypoglycemia or other adverse effects of treatment. Est Avg Glucose 192 mg/dl 5 15:25 EDT [facility] Comment: eAG represents the A1c result expressed as average glucose in mg/dl. Blood specimen (specimen) BLOOD SPECIMEN / Unknown 12/29/2014 10:14 EDT 12/29/2014 10:33 EDT us Catalino Jones MD CHEMISTRY & BLOOD GAS ORDERABLES Final Result Performing Organization Address [facility] Co de Phone Number [facility] [address] [place] [address] * HEMAGRAM AND DIFFERENTIAL (12/29/2014 10:14 EDT) WBC 7.20 4.0 - 10.4 K/cmm 12/29/2014 11:16 EDT [facility] RBC 4.56 4.36 - 5.78 M/cmm 12/29/2014 11:16 T [facility] Hemoglobin 14.6 13.8 - 17.3 gm/dl 12/29/2014 11:16 EDT [facility] HCT 42.3 39.5 - 50.2 % 12/29/2014 11:16 [facility] MCV 93 81 - 95 fl 12/29/2014 11:16 [facility] MCH 31.9 27.6 - 33.0 pg 12/29/2014 11:16 [facility] MCHC 34.4 32.8 - 36.4 gm/dl 12/29/2014 11:16 [facility] RDW-CV 13.5 11.8 - 14.1 % 12/29/2014 11:16 [facility] RDW-SD 43.8 36.5 - 45.9 fl 12/29/2014 11:16 [facility] PLT 212 141 - 320 K/cmm 12/29/2014 11:16 [facility] MPV 9.0 7.5 - 11.2 fl 12/29/2014 11:16 [facility] % Neutrophils 66.6 45.5 - 79.7 % 12/29/2014 11:16 [facility] % Lymphocytes 24.3 15.0 - 46.8 % 12/29/2014 11:16 [facility] % Monocytes 7.0 1.8 - 12.0 % 12/29/2014 11:16 [facility] % Eosinophils 1.4 0.6 - 6.9 % 12/29/2014 11:16 [facility] % Basophils 0.7 0.2 - 1.4 % 12/29/2014 11:16 [facility] ABS Neutrophils 4.80 2.20 - 8.85 K/cmm 12/29/2014 11:16 [facility] ABS Lymphs 1.75 1.09 - 3.30 K/cmm 12/29/2014 11:16 [facility] ABS Monocytes 0.50 0.1 - 0.8 K/cmm 12/29/2014 11:16 [facility] ABS Eosinophils 0.10 0.03 - 0.61 K/cmm 12/29/2014 11:16 [facility] ABS Basophils 0.05 0.01 - 0.11 K/cmm 12/29/2014 11:16 [facility] Type of Diff: Automated 12/29/2014 11:16 [facility] Blood specimen (specimen) BLOOD SPECIMEN / Unknown 12/29/2014 10:14 EDT 12/29/2014 10:33 EDT Catalino Jones MD PACKAGES & DNA PROBE O RDERABLES Final Result [facility] [address] [place] [address] * (ABNORMAL) BASIC METABOLIC PANEL (12/29/2014 10:14 EDT) Sodium 138 136 - 145 mEq/L 12/29/2014 11:35 [facility] Potassium 4.3 3.5 - 5.0 mEq/L 12/29/2014 11:35 [facility] Chloride 105 96 - 110 mEq/L 12/29/2014 11:35 [facility] CO2 25 24 - 32 mEq/L 12/29/2014 11:35 [facility] BUN 16 10 - 26 mg/dl 12/29/2014 11:35 [facility] Creatinine 0.83 0.66 - 1.25 mg/dl 12/29/2014 11:35 [facility] GFR, Calculated 100 >60 ml/min/1.7 3m2 12/29/2014 11:35 [facility] Comment: eGFR calculated using CKD-EPI equation for non Americans. Multiply eGFR by 1.16 for Americans. Calcium 9.9 8.5 - 10.5 mg/dl 12/29/2014 11:35 [facility] Calculated Calcium 9.8 8.5 - 10.5 mg/dl 12/29/2014 11:35 [facility] Glucose, Serum 149(H) 70 - 100 mg/dl 12/29/2014 11:35 [facility] Fasting? No 12/29/2014 10:15 [facility] Blood specimen (specimen) BLOOD SPECIMEN / Unknown 12/29/2014 10:14 EDT 12/29/2014 10:33 EDT Catalino Jones MD CHEMISTRY & BLOOD GAS ORDERABLES Final Result [facility] [address] [place] [address] documented in this encounter Visit Diagnoses Diagnosis Pain in joint, pelvic region and thigh- Primary Localized osteoarthrosis not specified whether primary or secondary, pelvic region and thigh Diabetes ([facility]) Type II or unspecified type diabetes mellitus without mention of complication, not stated as uncontrolled documented in this encounter Orders Lab Orders Without Results Count Last Ordered D ate First Ordered Date URINALYSIS 1 07/20/2014 URINE CULTURE IF UA POSITIVE - NON POCT URINALYSIS ONLY 1 07/20/2014 documented in this encounter Care Teams Asphalt Tar And Gravel Roofer Relationship Specialty Start Date End Date Jason Batres MD [address] [place] [address] PCP - General 07/27/11 12/31/23 documented as of this encounter
--- OUTSIDE RECORDS SUMMARY | 2024-02-28 16:55 | XMS_ITS | Encounter Summary ---
Author Organization [facility] Address [address] [place] [address] Care Team Providers Care Reinforcing Iron And Rebar Workers Name Role Phone Jason Batres MD Primary Care Provi margarita Reason for Visit * Reason Onset Date Comments Medications Refill 03/10/2016 Encounter Details Date Type Department Care Team (Late st Contact Info) Description 03/10/2016 Refill Jose Alvarez MD, [facility] [address] [place], [place] [phone] Aviva Carrillo, JARVIS [address] [facility] [address] [place] [address] Medications Refill Social History Tobacco Use Types [...] Refills Last Filled Start Date End Date sitaGLIPtin (JANUVIA) 50 mg tablet Take 1 Tab by mouth daily. 90 Tab 3 03/10/2016 05/18/2016 documented in this encounter Plan of Treatment Not on file documented as of this encounter Visit Diagnoses Not on filedocumented in this encounter Discontinued Medications Medication Sig Discontinue Reason Start Date End Da te sitaGLIPtin (JANUVIA) 50 mg tablet Take 50 mg by mouth daily. Reorder 03/10/2016 documented as of this encounter Care Teams Reinforcing Iron And Rebar Workers Relationship Specialty Start Date End Date Jason Batres MD [address] [place] [address] PCP - General 07/27/11 12/31/23 documented as of this encounter
--- OUTSIDE RECORDS SUMMARY | 2024-02-28 16:55 | XMS_ITS | Encounter Summary ---
Author Organization [facility] Address [address] [place] [address] Care Team Providers Care Fiber Machine Tender Name Role Phone Jason Batres MD Primary Care Provi margarita Alexus De La O RN Unavailable [facility] Internal Medicine, Primary Care Provi margarita Reason for Visit * Reason Comments Other Encounter Details Date Type Department Care Team (Late st Contact Info) Description 11/11/2014 Refill Jason Batres MD, PC [address] [place], [place] [phone] Jason Batres MD [address] [place] [phone] Other Social History Tobacco Use Types [...] Date metFORMIN (GLUCOPHAGE) 500 mg tablet TAKE ONE TABLET BY MOUTH TWICE DAILY 60 Tab 3 11/12/2014 12/29/2014 documented in this encounter Plan of Treatment [...] documented as of this encounter Care Teams Fiber Machine Tender Relationship Specialty Start Date End Date Jason Batres MD [address] [place] [address] PCP - General 07/27/11 12/31/23 [facility] Internal Medicine, Mp [address] [place] [address] PCP - General 01/01/24 Alexus De La O, board of directors 04/18/22 08/13/23 documented as of this encounter
--- OUTSIDE RECORDS SUMMARY | 2024-02-28 16:55 | XMS_ITS | Encounter Summary ---
Author Organization [facility] Address [address] [place] [address] Care Team Providers Care Quality Process Auditor Name Role Phone Jason Batres MD Primary Care Provi margarita Encounter Details Date Type Department Care Team (Late st Contact Info) Description 11/26/2015 10:29 EDT - 11/26/2015 10:30 EDT Hospital Encounter [address] [address] Jason Batres MD [address] [place] [phone] Discharge Disposition: Home or Self Care Social [...] :45 EDT documented as of this encounter Discharge Diagnoses Diagnosis E11.9 Type 2 diabetes mellitus without complications-E11.9[ICD-10-CM] R73.9 Hyperglycemia, unspecified-R73.9[ICD-10-CM] documented in this encounter Medications at Time of Discharge blood glucose meter (FREESTYLE FREEDOM LITE) Test FS BID. 1 Each 0 11/11/2013 blood glucose (FREESTYLE TEST) test strips 1 Strip by misc (non-drug; combo route) route 2 times daily 100 Each 1 05/11/2014 11/18/2021 glimepiride (AMARYL) 2 mg tablet Take 1 Tab by mouth 2 times daily 180 Tab 3 06/18/2014 03/10/2016 ibuprofen (MOTRIN) 200 mg tablet Take 800 mg by mouth daily. 09/21/2020 lancets Test BID. 100 Each 1 11/11/2013 10/30/2022 levothyroxine (SYNTHROID) 112 mcg tablet Take 1 Tab by mouth daily. 90 Tab 1 04/21/2015 07/24/2016 metFORMIN (GLUCOPHAGE) 500 mg tablet Take 2 Tabs by mouth 2 times daily 360 Tab 3 02/22/2015 03/10/2016 documented as of this encounter Discharge Disposition Disposition Code Departure Means Destination Home or Self Care documented in this encounter Plan of Treatment Not on file documented as of this encounter Visit Diagnoses Not on filedocumented in this encounter Care Teams Quality Process Auditor Relationship Specialty Start Date End Date Jason Batres MD [address] [place] [address] PCP - General 07/27/11 12/31/23 documented as of this encounter
--- OUTSIDE RECORDS SUMMARY | 2024-02-28 16:55 | XMS_ITS | Encounter Summary ---
Author Organization [facility] Address [address] [place] [address] Care Team Providers Care Imaging Tech Name Role Phone Jason Batres MD Primary Care Provi margarita Reason for Visit * Reason Comments Diabetes Encounter Details Date Type Department Care Team (Late st Contact Info) Description 09/17/2014 10:30 EDT Office Visit Jason Batres MD, PC [address] [place], [place] [phone] Jason Batres MD [address] [place] [phone] Type 2 diabetes mellitus without complication (CMS-HCC) (HCC-CMS) (Primary Dx) Social History Tobacco Use [...] Sign Reading Time Taken Comments Blood Pressure 110/78 09/17/2014 1034 EDT Pulse 98 09/17/2014 1034 EDT Temperature 36.8 ??C (98.2 ??F) 09/17/2014 1034 EDT Respiratory Rate - - Oxygen Saturation 98% 09/17/2014 1034 EDT Inhaled Oxygen Concentration - - Weight 117.9 kg (260 lb) 09/17/2014 1034 EDT Height 188 cm (6' 2) 09/17/2014 1034 EDT Body Mass Index 33.38 09/17/2014 1034 EDT documented in this encounter Patient Instructions * Patient Instructions* Jason Batres MD - 09/17/2014 10:56 EDT 1. The A1C is 7.8 today which is good, but I would like to see it closer to 7.0 or even under ideally. 2. Breakfast is important - and if you are tired of the same cereal every day - I would try buying different cereals- Chex, Wheaties, Total documented in this encounter Progress Notes * Jason Batres MD - 09/18/2014 2212 EDT Subjective: Patient ID: Jeff Scott is an 53 y.o. male. Chief Complaint Patient presents with ??? Diabetes HPI Jeff is here to follow-up on his diabetes. His A1C in March was elevated at 12.0 in March. He made some good changes in his diet, and it decreased to 8.2 in June which is the last test I have here, but then he did have an A1C at [facility] which was 7.6 in July. Today he is 7.8 which is better than June but up from his test at [facility]. He brought me his finger stick log and he is running on average of about 120-150 with a high of 207and a low of 91. He takes his FS fasting and then another test before dinner. He has been exercising a lot. He has been playing baseball as well and enjoys this. He has really been avoiding soda but does sometimes have gatorade before games and wants to know if this is OK. He also is having bilateral hip pain and is going to be having surgery on January 19, 2015. Social Current Outpatient Prescriptions on File Prior to Visit Medication Sig Dispense Refill ??? blood glucose (FREESTYLE TEST) test strips 1 Strip by [facility] (non-drug; combo route) route 2 times daily 100 Each 1 ??? blood glucose meter (FREESTYLE FREEDOM LITE) Test FS BID. 1 Each 0 ??? glimepiride (AMARYL) 2 mg tablet Take 1 Tab by mouth 2 times daily 180 Tab 3 ??? ibuprofen (MOTRIN) 200 mg tablet Take 200 mg by mouth every 6 hours ??? lancets Test BID. 100 Each 1 ??? levothyroxine (SYNTHROID) 112 mcg tablet Take 112 mcg by mouth daily. ??? metFORMIN (GLUCOPHAGE) 1,000 mg tablet Take 1 Tab by mouth 2 times daily with breakfast and dinner. 60 Tab 3 No current facility-administered medications on file prior to visit. No Known Allergies Review of Systems Respiratory: Negative for shortness of breath. Sputum production: bilateral hips. Cardiovascular: Negative for chest pain. Musculoskeletal: Positive for joint pain. - See HPI Objective: BP 110/78 mmHg Pulse 98 Temp(Src) 36.8 ??C (98.2 ??F) (Tympanic) Ht 188 cm (74) Wt 117.935kg (260 lb) BMI 33.37 kg/m2 SpO2 98% Physical Exam Constitutional: He is oriented to person, place, and time. He appears well- developed and well-nourished. No distress. Neck: No carotid bruits Cardiovascular: Normal rate, regular rhythm and normal heart sounds. No murmur heard. Pulmonary/Chest: Effort normal and breath sounds normal. Neurological: He is alert and oriented to person, place, and time. Repeats questions Psychiatric: He has a normal mood and affect. Assessment: Plan: Jeff was seen today for diabetes. Diagnoses and associated orders for this visit: Type 2 diabetes mellitus without complication - A1C today is 7.8 We discussed continuing to work on his diet He says he is getting tired of Cheerios for breakfast and we discussed trying some different non sugar cereal Given his memory issues, A1C under 8.0 is acceptable, although ideally should get his A1C under 7.0 follow up in 3-4 months I spent 30 minutes of face-face time with the patient, over half of it was in counseling Jason Batres MD documented in this encounter Plan of Treatment Not on file documented as of this encounter Procedures Procedure Name Priority Date/Time Associated Diagnosis Comments POCT HEMOGLOBIN A1C Routine 09/17/2014 1 1:10 EDT Type 2 diabetes mellitus without complication (CMS-HCC) ([facility]) documented in this encounter Results * (ABNORMAL) POCT HEMOGLOBIN A1C (09/17/2014 11:10 EDT) Hemoglobin A1c, POC 7.8(A) <=5.7 % POINT OF CARE 09/17/2014 11:1 0 EDT Jason Batres MD POINT OF CARE TEST ORDERABLES Final Result POINT OF CARE documented in this encounter Visit Diagnoses Diagnosis Type 2 diabetes mellitus without complication ([facility])- Primary Type II or unspecified type diabetes mellitus without mention of complication, not stated as uncontrolled documented in this encounter Care Teams Imaging Tech Relationship Specialty Start Date End Date Jason Batres MD [address] [place] [id number] PCP - General 07/27/11 12/31/23 documented as of this encounter
--- OUTSIDE RECORDS SUMMARY | 2024-02-28 16:55 | XMS_ITS | Encounter Summary ---
Author Organization [facility] Address [address] [place] [address] Care Team Providers Care Marine Electronics Technician Name Role Phone Jason Batres MD Primary Care Provi margarita Reason for Visit * Reason Comments Pre-op Exam Encounter Details Date Type Department Care Team (Late st Contact Info) Description 12/29/2014 9:00 EDT Office Visit Jason Batres MD, PC [address] [place], [place] [phone] Carmelita Hogue, AIRCRAFT REFUELLER [address] [place] [phone] Pre-op examination (Primary Dx); Arthritis of left hip Social History Tobacco Use [...] Sign Reading Time Taken Comments Blood Pressure 132/80 12/29/2014 0908 EDT Pulse 98 12/29/2014 0908 EDT Temperature 36.6 ??C (97.8 ??F) 12/29/2014 0908 EDT Respiratory Rate 16 12/29/2014 0908 EDT Oxygen Saturation 98% 12/29/2014 09 EDT Inhaled Oxygen Concentration - - Weight 120.2 kg (265 lb) 12/29/2014 09 EDT Height 188 cm (6' 2) 12/29/2014 09 EDT Body Mass Index 34.02 12/29/2014 09 EDT documented in this encounter Patient Instructions * Patient Instructions* Carmelita Hogue APRN - 12/29/2014 9:23 EDT Do not take any NSAIDS (iburpofen, aleve, advil, etc) 7 days prior to your procedure. It is ok to take tylenol. The night prior to your procedure do not take your metformin The morning of your procedure do not take your metformin or glimepiride documented in this encounter Progress Notes * Carmelita Hogue APRN - 12/29/2014 0903 EDT Preoperative H&P Date of Service: 12/30/2014 Chief Complaint: Chief Complaint Patient presents with ??? Pre-op Exam Planned Procedure: Left total hip arthroplasty Surgeon: Dr. Jones Planned Procedure Date: 01/19/15 Problem List Available or Initiated: yes HISTORY OF PRESENT ILLNESS: Jeff Scott is a 54 y.o., male, with several years of left hip pain and decreased range of motion. Xray revealed severe osteoarthritic changes in the hip. He has tried and failed OTC analgesics andan exercise program. He plans to proceed with surgical repair as his symptoms are interfering with his everyday activities. Prior h/o of anesthetic complications no Prior h/o bleeding problems no Prior h/o DVT/PE no Cardiovascular or pulmonary risk factors: Diabetes Mellitus Active Problem List Patient Active Problem List Diagnosis ??? Late effect of intracranial injury ??? Craniopharyngioma ??? Memory loss due to medical condition ??? Hypothyroidism ??? Osteoarthritis of left hip PMH PSH Past Medical History Diagnosis Date ??? Wears glasses ??? Arthritis ??? Back pain ??? Diabetes mellitus ??? Hypothyroidism Past Surgical History Procedure Laterality Date ??? Brain surgery s/p tumor Social History Family history History Substance Use Topics ??? Smoking status: Never Smoker ??? Smokeless tobacco: Not on file ??? Alcohol Use: No Family History Problem Relation Age of [...] 61 Tab 3 No current facility-administered medications for this visit. Allergies No Known Allergies Review of systems Negative Positive Details Constitutional X Cardiovascular X Respiratory X Gastrointestinal X PLASTERER SPRAY GUN X Musculoskeletal X Left hip pain and decreased ROM Neurological X Memory impairment Psychiatric X Hematological/Lymphatic X Endocrine X Diabetes, treated with oral medication Eyes X Ears,nose, mouth,throat, X Integumentary X Allergic/Immunologic X PHYSICAL EXAMINATION: BP 132/80 mmHg Pulse 98 Temp(Src) 36.6 ??C (97.8 ??F) (Tympanic) Resp 16 Ht 188 cm (74) Wt 120.203 kg (265 lb) BMI 34.01 kg/m2 SpO2 98%, Body mass index is 34.01 kg/(m^2). Organ system Negative Positive Not examined Details Constitution/General x EENT & Mouth x Neck/Thyroid x Skins,nodes, glands x Respiratory x Heart x Peripheral Vascular x Breasts and Axillae x Abdomen x Scrotum/testes x Pelvic x Rectal x Musculoskeletal x Neurologic x EKG: NSR IMPRESSION/PLAN: Jeff is a 54 year old male with history of diabetes and left frontal craniopharyngioma with craniotomy in 2006. He has no known ASCVD. His A1C has increased from 7.8% to 8.3%. Given his memory issues, his goal is <8% however ideally closer to 7%. I have suggested continuing his current medications, metformin and glimepiride. He feels he can improve his diet, so he will work on this and we will recheck his A1C in 3 months. His CBC and BMP were unremarkable. He is ok to proceed with surgery as planned without further pre-operative clearance. I have instructed him to do the following with his medications: 1. Discontinue all nsaids 7 days prior to surgery, it is ok to take tylenol if needed. 2. Hold metformin the night prior and morning of surgery 3. Hold glimepiride the morning of surgery Follow up in 3 months, sooner prn. Carmelita Hogue APRN 12/30/2014 11:09 documented in this encounter Plan of Treatment Not on file documented as of this encounter Procedures Procedure Name Priority Date/Time Associated Diagnosis Comments ECG REPORT - SCANNED (REGIONAL) 12/31/2014 10:18 EDT documented in this encounter Results * ECG REPORT - SCANNED (REGIONAL) (12/31/2014 10:18 EDT) 12/31/2014 10:1 8 EDT us Scan 2 Singe Machine Operator PROCEDURE/MINOR SURGICAL OR DERABLES Final Result documented in this encounter Visit Diagnoses Diagnosis Pre-op examination- Primary Preoperative examination, unspecified Arthritis of left hip documented in this encounter Discontinued Medications Medication Sig Discontinue Reason Start Date End Da te metFORMIN (GLUCOPHAGE) 500 mg tablet TAKE ONE TABLET BY MOUTH TWICE DAILY 11/12/2014 12/29/2014 documented as of this encounter Care Teams Marine Electronics Technician Relationship Specialty Start Date End Date Jason Batres MD [address] [place] [address] PCP - General 07/27/11 12/31/23 documented as of this encounter
--- OUTSIDE RECORDS SUMMARY | 2024-02-28 16:55 | XMS_ITS | Encounter Summary ---
Author Organization [facility] Address [address] [place] [address] Care Team Providers Care Retail Sales Merchandiser Development Name Role Phone Jason Batres MD Primary Care Provi margarita Encounter Details Date Type Department Care Team (Late st Contact Info) Description 02/17/2016 Results Only Jason Batres MD, PC [address] [place], [place] [phone] Jason Batres MD [address] [place] [phone] Social History Tobacco Use Types Packs/Day Years [...] Procedure Name Priority Date/Time Associated Diagnosis Comments HEPATITIS C AB W REFLEX TO HCV RNA BY PCR Routine 02/17/2016 14:33 EST HEPATITIS A TOTAL ANTIBODY W REFLEX Routine 02/17/2016 14:33 EST HEPATITIS B SURFACE ANTIBODY Routine 02/17/2016 14:33 EST FERRITIN Routine 02/17/2016 14:33 EST documented in this encounter Results * HEPATITIS C ANTIBODY (02/17/2016 14:33 EST) Hep C Ab w Rfx PCR Negative Negative 02/18/2016 12:09 EST [facility] Comment:Reference Range: Neg ative BLOOD SPECIMEN / Unknown 02/17/2016 14:33 EST 02/17/2016 18:27 EST Jason Batres MD CHEMISTRY & BLOOD G ORDERABLES Final Result Performing Organization Address [facility] [[email or web address]] de Phone Number [facility] [address] [place] [address] * HEPATITIS B SURFACE ANTIBODY (02/17/2016 14:33 EST) Hepatitis B Surface Ab Negative 02/18/2016 12:12 EST [facility] Comment: Reference Range: Unvaccinated: ??Negative Vaccinated: ??Positive HBs Antibody, Quant <5.0 mIU/mL 02/18/2016 12:12 [facility] Comment: Patient is presumed to not be immune to infection with HBV. Reference Range: Positive: >=12.0 mIU/mL Indeterminate: >=5.0 to <12.0 mIU/mL Negative: <5.0 mIU/mL BLOOD SPECIMEN / Unknown 02/17/2016 14:33 EST 02/17/2016 18:27 EST us Jason Batres MD CHEMISTRY & BLOOD G ORDERABLES Final Result Performing Organization Address [facility] Co de Phone Number [facility] [address] [place] [address] * HEPATITIS A TOTAL ANTIBODY (02/17/2016 14:33 EST) Hep A Antibody Negative 02/18/2016 12:12 EST [facility] Comment:Reference Range: Neg ative BLOOD SPECIMEN / Unknown 02/17/2016 14:33 EST 02/17/2016 18:27 EST us Jaosn Batres MD CHEMISTRY & BLOOD G ORDERABLES Final Result Performing Organization Address [facility] Co de Phone Number [facility] [address] [place] [address] * FERRITIN (02/17/2016 14:33 EST) Ferritin 127 22 - 322 ng/ml 02/18/2016 11:56 EST [facility] BLOOD SPECIMEN / Unknown 02/17/2016 14:33 EST 02/17/2016 18:27 EST us Jason Batres MD CHEMISTRY & BLOOD G ORDERABLES Final Result Performing Organization Address [facility] [[email or web address]] de Phone Number [facility] [address] [place] [address] documented in this encounter Visit Diagnoses Not on filedocumented in this encounter Care Teams Retail Sales Merchandiser Development Relationship Specialty Start Date End Date Jason Batres MD [address] [place] [id number] PCP - General 07/27/11 12/31/23 documented as of this encounter
--- OUTSIDE RECORDS SUMMARY | 2024-02-28 16:55 | XMS_ITS | Encounter Summary ---
Author Organization [facility] Address [address] [place] [address] Care Team Providers Care Soaking Tank Worker Name Role Phone Jason Batres MD Primary Care Provi margarita Reason for Referral * Consult (Routine) - Closed Specialty Diagnoses / Procedures [facility] Contact Diagnoses Diabetes mellitus without complication ([facility]) Jason Batres MD Phone: tel: fax: Referral ID Status Reason Start Date Expiration Date V isits Requested Visits Authorized [id number] Closed Specialty Services Required 11/29/2015 1 1 Question Answer What areas would you like the CHT to focus on? Diabetic Education, Nutrition Help If Yes to Diabetic Education, Please Select from the Following (If HBA1C is greater than 8 refer to Endocrinology ([id number]) for CDE Support instead): HBA1C Above 8 The Stages of Change: Determination/Prepartion (YES) Comments As we discussed in your visit today, someone will be contacting you from the [facility] Health Team to schedule an appointment with you. If you do not hear from the CHT within a week please call the [facility] Health Team at [phone]. Encounter Details Date Type Department Care Team (Late st Contact Info) Description 11/29/2015 Orders Only Jason Batres MD, PC [address] [place], [place] [phone] Jason Batres MD [address] [place] [phone] Diabetes mellitus without complication ([facility]) (Primary Dx) Social History Tobacco Use [...] as of this encounter Plan of Treatment Scheduled Referrals Name Type Priority Associated Diagnoses Orde r Schedule AMB CONS/FOLLOW UP COMMUNITY [facility] TEAM Outpatient Referral Routine Diabetes mellitus without complication ([facility]) Ordered: 11/29/2015 documented as of this encounter Visit Diagnoses Diagnosis Diabetes mellitus without complication ([facility])- Primary Type II or unspecified type diabetes mellitus without mention of complication, not stated as uncontrolled documented in this encounter Care Teams Soaking Tank Worker Relationship Specialty Start Date End Date Jason Batres MD [address] [place] [address] PCP - General 07/27/11 12/31/23 documented as of this encounter
--- OUTSIDE RECORDS SUMMARY | 2024-02-28 16:55 | XMS_ITS | Encounter Summary ---
Author Organization [facility] Address [address] [place] [address] Care Team Providers Care Footwear Factory Worker Name Role Phone Jason Batres MD Primary Care Provi margarita Reason for Visit * Reason Comments Hip Pain Encounter Details Date Type Department Care Team (Late st Contact Info) Description 11/26/2015 9:15 EDT Office Visit Jason Batres MD, PC [address] [place], [place] [phone] Jason Batres MD [address] [place] [address] Type 2 diabetes mellitus without complication (CMS-HCC) (HCC-CMS) (Primary Dx); High blood sugar Social History Tobacco Use Types Packs/Day Years [...] Sign Reading Time Taken Comments Blood Pressure 118/76 11/26/2015 0940 EDT Pulse 97 11/26/2015 0940 EDT Temperature 36.1 ??C (96.9 ??F) 11/26/2015 0940 EDT Respiratory Rate - - Oxygen Saturation 98% 11/26/2015 0940 EDT Inhaled Oxygen Concentration - - Weight 122.9 kg (271 lb) 11/26/2015 0940 EDT Height - - Body Mass Index 34.79 12/29/2014 0908 EDT documented in this encounter Progress Notes * Carmelita Gonzalez - 11/29/2015 1148 EDT Left message for patient to call the office. Referral sent to T. * Jason Batres MD - 11/28/2015 1821 EDT Subjective: Patient ID: Jeff Scott is an 54 y.o. male. Chief Complaint Patient presents with ??? Hip Pain HPI Jeff is here for his first visit with me in over a year. He has bee seen by endocrinology at [facility] several times. His last A1C with me was 8.3 but then in April it was 7.5 and in July it was down to 7.3 at [facility]. He was concerned because he wanted to have a hip replacement and Dr. Joneswould not operate on his hip unless his A1C was under 7.0. I told Jeff that I feel under 7.5 is good and that I could discuss this with Dr. Jones, however his A1C today came back over 10.0. I do see that the note from his steam plant records clerk at [facility] says the feel an A1C of around 7.5 is acceptable as well. Before we had the A1C number, Jeff told me he feels he has been doing well. His FS's in the morning are around 110-140 and then in the afternoon are higher at around 130-170. He did bring some notesfrom his and she feels he needs a specific diet to follow and specific foods that he should and should not eat. Jeff does say he has been trying to cut back on soda but that he has been eating a lot of bread. Still, he is surprised that the A1C was so elevated and was disappointed in this. Keith met with the [facility] Team in the past. Social Current Outpatient Prescriptions on File Prior [...] 1 ??? metFORMIN (GLUCOPHAGE) 500 mg tablet Take 2 Tabs by mouth 2 times daily 360 Tab 3 No current facility-administered medications on file prior to visit. No Known Allergies Review of Systems Respiratory: Negative for shortness of breath. Cardiovascular: Negative for chest pain. Musculoskeletal: Positive for joint pain. - See HPI Objective: Visit Vitals ??? BP 118/76 ??? Pulse 97 ??? Temp 36.1 ??C (96.9 ??F) ??? Wt (!) 122.9 kg (271 lb) ??? SpO2 98% ??? BMI 34.79 kg/m2 Physical Exam Constitutional: He is oriented [...] Assessment: Plan: Jeff was seen today for hip pain. Diagnoses and all orders for this visit: High blood sugar Orders: - POCT Hemoglobin A1c - Hemoglobin A1c Type 2 diabetes mellitus without complication Orders: - Hemoglobin A1c 1. Diabetes I will send the A1C to the lab as Jeff is surprised by this number. If it is confirmed, he cannot have surgery with the A1C this elevated, although I do think under 7.5 is acceptable. He very much wants to have the hip surgery so feels he can make some changes. I would refer him to the [facility] Team dietitian again. I told him we usually would not give him specific meal plans, but would want to discuss with him healthy options and so he can learn tomake good choices. I did give him a pamphlet today about carbohydrate counting. Will see him back for a quick visit in about one month to review Jason Batres MD documented in this encounter Plan of Treatment Not on file documented as of this encounter Procedures Procedure Name Priority Date/Time Associated Diagnosis Comments HEMOGLOBIN A1C Routine 11/26/2015 11:45 EDT High blood sugar Type 2 diabetes mellitus without complication (CMS-HCC) (HCC-CMS) POCT HEMOGLOBIN A1C Routine 11/26/2015 9 :20 EDT High blood sugar documented in this encounter Results * HEMOGLOBIN A1C (11/26/2015 11:45 EDT) Hemoglobin A1C 10.3 % 11/28/2015 11:51 EDT [facility] Comment: Reference Range: <5.7% Normal 5.7-6.4% Increased risk for diabetes =>6.5% Diagnostic for diabetes (if confirmed) The A1c goal for non adults in general is <7%. The A1c goal for selected patients may be significantly lower than 7% if this can be achieved without significant hypoglycemia or other adverse effects of treatment. Est Avg Glucose 249 mg/dl 6 11:51 EDT [facility] Comment: eAG represents the A1c result expressed as average glucose in mg/dl. Blood specimen (specimen) BLOOD SPECIMEN / Unknown 11/26/2015 11:45 EDT 11/26/2015 18:30 EDT us Jason Batres MD CHEMISTRY & BLOOD G ORDERABLES Final Result [facility] [address] [place] [address] * (ABNORMAL) POCT HEMOGLOBIN A1C (11/26/2015 9:20 EDT) Hemoglobin A1c, POC 10.5(A) <=5.7 % POINT OF CARE 11/26/2015 9:20 EDT us Jason Batres MD POINT OF CARE TEST ORDERABLES Final Result POINT OF CARE documented in this encounter Visit Diagnoses Diagnosis Type 2 diabetes mellitus without complication ([facility]-CMS)- Primary Type II or unspecified type diabetes mellitus without mention of complication, not stated as uncontrolled High blood sugar Other abnormal glucose documented in this encounter Care Teams Footwear Factory Worker Relationship Specialty Start Date End Date Jason Batres MD [address] [place] [address] PCP - General 07/27/11 12/31/23 documented as of this encounter
--- OUTSIDE RECORDS SUMMARY | 2024-02-28 16:55 | XMS_ITS | Encounter Summary ---
Author Organization [facility] Address [address] [place] [address] Care Team Providers Care Ventilation Worker Name Role Phone Jason Batres MD Primary Care Provi margarita Reason for Visit * Reason Comments Community Health Team Encounter Details Date Type Department Care Team (Late st Contact Info) Description 03/14/2016 Community Health Team Jason Batres MD, PC [address] [place], [place] [phone] Odette Hector LICSW [address] [place] [address] Social History Tobacco Use Types Packs/Day Years [...] Progress Notes * Odette Hector LICSW - 03/14/2016 1557 EST Community Health Team Social Work Follow Up Visit Date of visit: 03/14/2016 Social Work follow up with Jeff Scott for stress reduction/employment, original referral from RD. This is the 2nd encounter. SUBJECTIVE: Reviewed assessment and plan from previous visit with ptJaziel Aguilar states Remind me your name again. I am so ready to work. OBJECTIVE: Comment(s): Jeff is anxious as evidenced by poor eye contact and negative self talk. He engages inconversation. TOPIC OF CONVERSATION: Engaged patient in conversation related to positive behavior change, self- management, goal setting and action planning using motivational interviewing and active listening. Reviewed last meeting withthiewelina WILDE. Jeff has since been to the orientation at [facility] and has been connected with [facility] counselor, Gabrielle Goff ([phone]). He signs release for this SW to phone Gabrielle. Message left. Jeff is excited about the prospect of working both from a financial standpoint as well as to increase purpose in life. He would like to work at either the [employer] or the [employer]. Gabrielle outlined the amount he is able to work while still maintaining his needed disability benefits. Discussed Jeff's negative self talk and how he envisions what people think of him. Encouraged Jeff to challenge negative thoughts and work to replace them with more positive sentiments. He agrees this is something he could work on. STAGE OF CHANGE: Action PATIENT IDENTIFIED GOALS: Find part-time work while maintaining his disability benefits. PLAN: Jeff will continue to work with [facility] counselor, Gabrielle Goff. Follow up04/18/16, 3:00PM. ADDITIONAL INFORMATION FOR PROVIDER: Patient's Primary Care Site: Dr. Batres Total Time: 60 min face to face 15 min charting 5 min care coordination Referral: no new Follow up: Date: Monday, April 18, 2016 Time: 3 PM With: Odette Hector Paper Coater Location: Dr. Batres Status: Active JG Ray documented in this encounter Plan of Treatment Not on file documented as of this encounter Visit Diagnoses Not on filedocumented in this encounter Care Teams Ventilation Worker Relationship Specialty Start Date End Date Jason Batres MD [address] [place] [address] PCP - General 07/27/11 12/31/23 documented as of this encounter
--- OUTSIDE RECORDS SUMMARY | 2024-02-28 16:55 | XMS_ITS | Encounter Summary ---
Author Organization [facility] Address [address] [place] [address] Care Team Providers Care Roofer Vinyl Coating Name Role Phone Jason Batres MD Primary Care Provi margarita Reason for Visit * Reason Comments Hip Pain Encounter Details Date Type Department Care Team (Latest Contact Info) Description 01/04/2015 13:15 EST Office Visit [facility] [place] [address] [place] [address] Unknown, Provider, MD Moreno, Nurse Pain in joint, pelvic region and thigh, left (Primary Dx); Primary osteoarthritis of left hip [...] as of this encounter Progress Notes * Fausto Hunt - 01/04/2015 1435 EST Patient here today for routine pre-op appointment. HgA1c at pre-op visit found to be 8.3. Discussedwith patient and his brother that his surgery will need to be rescheduled and he will need to work on getting better control of his blood sugars. He will meet with his PCP to work on this and will berescheduled when his A1C <7. All of his and his brother's questions were answered. They understan d the plan Fausto Hunt MD 14:37 * Sandie Kendall LPN - 01/04/2015 1427 EST Nasal swab completed & sent to [facility] . All questions pertaining to surgery were answered & Chlorhexadine antiseptic provided. Sandie Kendall LPN documented in this encounter Plan of Treatment Not on file documented as of this encounter Visit Diagnoses Diagnosis Pain in joint, pelvic region and thigh, left- Primary Primary osteoarthritis of left hip Primary localized osteoarthrosis, pelvic region and thigh documented in this encounter Care Teams Roofer Vinyl Coating Relationship Specialty Start Date End Date Jason Batres MD [address] [place] [address] PCP - General 07/27/11 12/31/23 documented as of this encounter
--- OUTSIDE RECORDS SUMMARY | 2024-02-28 16:55 | XMS_ITS | Encounter Summary ---
Author Organization [facility] Address [address] [place] [address] Care Team Providers Care Door Patcher Name Role Phone Jason Batres MD Primary Care Provi margarita Encounter Details Date Type Department Care Team (Late st Contact Info) Description 03/24/2014 23:03 EST - 03/24/2014 23:04 EST Hospital Encounter [facility] - [address] [address] Jason Batres MD [address] [place] [phone] Discharge Disposition: Home or Self Care Social [...] as of this encounter Discharge Diagnoses Diagnosis 250.00 DIABETES UNCOMPL ADULT-TYPE II[ICD-9-CM] documented in this encounter Medications at Time of Discharge blood glucose meter (FREESTYLE FREEDOM LITE) Test FS BID. 1 Each 0 11/11/2013 acetaminophen (ARTHRITIS PAIN RELIEF, ACETAM,) 650 mg CR tablet Take 1,300 mg by mouth every 8 hours. 5 blood glucose (FREESTYLE TEST) test strips 1 Strip by misc (non-drug; combo route) route 2 times daily. 100 Each 1 11/11/2013 5 glimepiride (AMARYL) 2 mg tablet Take 1 Tab by mouth daily. 60 Tab 3 03/24/2014 5 lancets Test BID. 100 Each 1 11/11/2013 3 levothyroxine (SYNTHROID) 112 mcg tablet Take 112 mcg by mouth daily. 6 metFORMIN (GLUCOPHAGE) 1,000 mg tablet Take 1 Tab by mouth 2 times daily with breakfast and dinner. 60 Tab 3 03/24/2014 5 documented as of this encounter Discharge Disposition Disposition Code Departure Means Destination Home or Self Care documented in this encounter Plan of Treatment Not on file documented as of this encounter Visit Diagnoses Not on filedocumented in this encounter Care Teams Door Patcher Relationship Specialty Start Date End Date Jason Batres MD [address] [place] [address] PCP - General 07/27/11 12/31/23 documented as of this encounter
--- OUTSIDE RECORDS SUMMARY | 2024-02-28 16:55 | XMS_ITS | Encounter Summary ---
Author Organization [facility] Address [address] [place] [address] Care Team Providers Care Director Center Name Role Phone Jason Batres MD Primary Care Provi margarita Reason for Visit * Reason Comments Other Encounter Details Date Type Department Care Team (Late st Contact Info) Description 02/22/2015 Refill Jason Batres MD, PC [address] [place], [place] [phone] Jason Batres MD [address] [place] [address] Other Social History Tobacco Use [...] End Date metFORMIN (GLUCOPHAGE) 500 mg tablet Take 2 Tabs by mouth 2 times daily 360 Tab 3 02/22/2015 03/10/2016 documented in this encounter Plan of Treatment Not on file documented as of this encounter Visit Diagnoses Not on filedocumented in this encounter Discontinued Medications Medication Sig Discontinue Reason Start Date End Da te metFORMIN (GLUCOPHAGE) 1,000 mg tablet Take 1 Tab by mouth 2 times daily with breakfast and dinner. Dose adjustment 03/24/2014 02/22/2015 documented as of this encounter Care Teams Director Center Relationship Specialty Start Date End Date Jason Batres MD [address] [place] [address] PCP - General 07/27/11 12/31/23 documented as of this encounter
--- OUTSIDE RECORDS SUMMARY | 2024-02-28 16:55 | XMS_ITS | Encounter Summary ---
Author Organization [facility] Address [address] [place] [address] Care Team Providers Care Linseed Cake Trimmer Name Role Phone Jason Batres MD Primary Care Provi margarita Encounter Details Date Type Department Care Team (Late st Contact Info) Description 03/02/2016 Community Health Team Jason Bartes MD, PC [address] [place], [place] [phone] Yael Blackburn RD [address] [place] [address] Social History Tobacco Use Types [...] as of this encounter Progress Notes * Yael Blackburn RD - 03/02/2016 1306 EST Community Health Team Visual C Developer Follow-up Visit Name:Jeff Scott Today's Date: 03/02/2016 Date of visit: 03/02/2016 SUBJECTIVE: Jeff Scott is a 55 y.o. male initially referred to the Community Health Team for diabetes self-management education by No ref. provider found. Jeff was last seen on 12/31/15 and returns today fora follow-up CHT CDE visit at Dr. Batres accompanied by alone. This is the second encounter. Pt states that his children have been home for the holidays so his schedule has been a little different. Pt reports he feels that everyone is on him about his diet and what he can eat. Pt reports that he struggles most with the meals that he is responsible for which include breakfast and lunch. Pt rescheduled most recent appointment with endocrinology in [place] though he felt this was really important as his numbers are still high. OBJECTIVE: Diabetes type: Type 2 Vitals: There were no vitals taken for this visit. BMI: There is no height or weight on file to calculate BMI. LABORATORY RESULTS: A1c: Lab Results Component Value Date HGBA1C 10.0 (A) 02/17/2016 HGBA1C 10.3 11/26/2015 DIABETES MEDICATIONS: Current AntiDiabetic Medications 02/22/2015 02/17/2016 sitaGLIPtin (oral) - 50 MG DAILY (50 mg tab) glimepiride (oral) 2 MG BID 2 MG BID metFORMIN (oral) 1,000 MG BID 1,000 MG BID DIABETES MEAL PLANNING: Type of meal planning: Consistent Carbohydrate Carbohydrate targets: 60 grams of carbohydrate at meals Follows meal plan: 25% to 50% of the time PRESENT MEAL PATTERN: Comments: Current eating habits:eats 3 meals plus snacks, high in simple carbohydrates and large portion sizes. Breakfast: large portion of cereal with milk or an egg sandwich with cheese and vegetables on wholewheat bread Lunch: large salad with variety of garden veggies and cheese with salad dressing Dinner: meat potato and vegetable ( helps to portion) Beverages: water Alcohol: none reported PHYSICAL ACTIVITY: Type of exercise: walking Frequency per week: Daily Duration in minutes: 30 or more minutes BLOOD GLUCOSE MONITORING: Glucose monitoring: once daily. Barriers to monitoring: None Home Blood Glucoses Running: patient forgot to bring HBG readings. HYPOGLYCEMIA MANAGEMENT: Hypoglycemic event: none reported. Patient is carrying a source of rapid acting CHO: none Patient has a current supply of glucagon? No Patient is wearing Medic Alert: No STRESS MANAGEMENT/COPING SKILLS: Pt referred to T social media job titles for referral to community therapist. ASSESSMENT: 55 yo male seen for follow up diabetes management. Pt continues to have hyperglycemia and has made very few changes. No recent changes to medications though I suspect endocrinology will suggest this given increase in hemoglobin a1c and per pt continued episodes of hyperglycemia. Pt did not bring meter or log of home blood glucose readings. 24-hour recall indicates some changes to lunch choices todecrease carbohydrate intake. Pt struggles most with meals that aren't prepared by his . Workedwith pt to develop options for both breakfast and lunch to make these meals easier. Pt continues toexpress upset with family support and how it is delivered. Pt could benefit from working with a community therapist and was open to this idea. DIABETES SELF-MANAGEMENT EDUCATION: Engaged pt in conversation related to positive behavior change, self-management, goal setting and action planning using motivational interviewing and active listening. During this session we addressed the following topics: Self monitoring blood glucose Carbohydrate counting and consistent carbohydrate diet Foods that contain carbohydrate and balanced meals Educational materials provided:Living Well with Diabetes- [employer] Method: verbal Taught to: Patient Barriers to education: reports forgetting things Psychosocial, cultural, or economic barriers to care:other. Outcomes: Pt verbalized understanding and but requests written overview of visit for his family as he is concerned he will forget Stage of Change: Preparation Action Plan: Goals None DIABETES SELF-MANAGEMENT RECOMMENDATIONS: 3 meals each day with 45-60grams carbohydrate. Worked with pt to identify some lunch and breakfast ideas that he could choose from each day. PATIENT IDENTIFIED GOALS: Decrease serving size of cereal in the morning and improve overall balance of breakfast meal PATIENT'S PLAN: Work with [facility] social media job titles to identify a community therapist. Follow up with RD in 2 months. Recommend he has his attend. ADDITIONAL INFORMATION FOR PROVIDER: pt rescheduled appointment with endocrinology at [facility] because his children needed his truck. Next appointment is scheduled in mid may. Current Visit Location: Dr. Batres Total Time: 80 minutes Referral: [facility] social work admin team please schedule him with Odette. Follow up: Date: May Time: 1 PM With: Linda Dudley Dietitifredy Location: Dr. Batres Status: Active Yael Blackburn RD 03/02/2016 13:06 documented in this encounter Plan of Treatment Not on file documented as of this encounter Visit Diagnoses Not on filedocumented in this encounter Care Teams Linseed Cake Trimmer Relationship Specialty Start Date End Date Jason Batres MD [address] [place] [address] PCP - General 07/27/11 12/31/23 documented as of this encounter
--- OUTSIDE RECORDS SUMMARY | 2024-02-28 16:55 | XMS_ITS | Encounter Summary ---
Author Organization [facility] Address [address] [place] [address] Care Team Providers Care Manager Reporting Name Role Phone Jason Batres MD Primary Care Provi margarita Encounter Details Date Type Department Care Team (Late st Contact Info) Description 01/01/2015 9:14 EDT - 01/01/2015 9:15 EDT Hospital Encounter [facility] - [address] [address] Jason Batres MD [address] [place] [phone] Discharge Disposition: Home or Self Care Social [...] as of this encounter Discharge Diagnoses Diagnosis Z01.818 Encounter for other preprocedural examination-Z01.818[ICD-10-CM] documented in this encounter Medications at Time of Discharge blood glucose meter (FREESTYLE FREEDOM LITE) Test FS BID. 1 Each 0 11/11/2013 blood glucose (FREESTYLE TEST) test strips 1 Strip by misc (non-drug; combo route) route 2 times daily 100 Each 1 05/11/2014 2 glimepiride (AMARYL) 2 mg tablet Take 1 Tab by mouth 2 times daily 180 Tab 3 06/18/2014 7 ibuprofen (MOTRIN) 200 mg tablet Take 800 mg by mouth daily. 1 lancets Test BID. 100 Each 1 [...] on filedocumented in this encounter Care Teams Manager Reporting Relationship Specialty Start Date End Date Jason Batres MD [address] [place] [address] PCP - General 07/27/11 12/31/23 documented as of this encounter
--- OUTSIDE RECORDS SUMMARY | 2024-02-28 16:55 | XMS_ITS | Encounter Summary ---
Author Organization [facility] Address [address] [place] [address] Care Team Providers Care Curtain Drier Name Role Phone Jason Batres MD Primary Care Provi margarita Reason for Visit * Reason Onset Date Comments Medications Refill 05/11/2014 Encounter Details Date Type Department Care Team (Late st Contact Info) Description 05/11/2014 Refill Jason Batres MD, PC [address] [place], [place] [phone] Jason Batres MD [address] [place] [phone] Medications Refill Social History Tobacco [...] Refills Last Filled Start Date End Date blood glucose (FREESTYLE TEST) test strips 1 Strip by misc (non-drug; combo route) route 2 times daily 100 Each 1 05/11/2014 11/18/2021 documented in this encounter Plan of Treatment Not on file documented as of this encounter Visit Diagnoses Not on filedocumented in this encounter Discontinued Medications Medication Sig Discontinue Reason Start Date End Da te blood glucose (FREESTYLE TEST) test strips 1 Strip by misc (non-drug; combo route) route 2 times daily. Reorder 11/11/2013 05/11/2014 documented as of this encounter Care Teams Curtain Drier Relationship Specialty Start Date End Date Jason Batres MD [address] [place] [address] PCP - General 07/27/11 12/31/23 documented as of this encounter
--- OUTSIDE RECORDS SUMMARY | 2024-02-28 16:55 | XMS_ITS | Encounter Summary ---
Author Organization [facility] Address [address] [place] [address] Care Team Providers Care Zoogler Name Role Phone Jason Batres MD Primary Care Provi margarita Encounter Details Date Type Department Care Team (Late st Contact Info) Description 01/25/2016 Community Health Team Jason Batres MD, PC [address] [place], [place] [phone] Yael Blackburn, RD [address] [place] [address] Social History Tobacco Use Types [...] Progress Notes * Yael Blackburn RD - 01/25/2016 1511 EST Called pt to reschedule up coming appointment as there was some overlap in the schedule. Dr. Batres Total Time: 15 minutes Referral: none Follow up: Date: February Time: 1 PM With: Linda Dudley Dietitifredy Location: Dr. Batres Status: Active Thank you for this referral. Yael Blackburn RD, CD Clinical Dietitian, [facility] documented in this encounter Plan of Treatment Not on file documented as of this encounter Visit Diagnoses Not on filedocumented in this encounter Care Teams Zoogler Relationship Specialty Start Date End Date Jason Batres MD [address] [place] [address] PCP - General 07/27/11 12/31/23 documented as of this encounter
--- OUTSIDE RECORDS SUMMARY | 2024-02-28 16:55 | XMS_ITS | Encounter Summary ---
Author Organization [facility] Address [address] [place] [address] Care Team Providers Care Anodic Treater Name Role Phone Jason Batres MD Primary Care Provi margarita Reason for Visit * Reason Onset Date Comments Appointment Related 03/10/2016 Encounter Details Date Type Department Care Team (Late st Contact Info) Description 03/10/2016 Telephone [facility]le Program - [address] [phone] Angelina Gonzales, [facility] [address] [place] [phone] Appointment Related Social History Tobacco [...] encounter Miscellaneous Notes * Telephone Encounter - Mana Toure - 03/10/2016 0838 EST I called this morning after receiving a email from the ED that he should be seen here within 5-7 days. I left a message with appt time and date 1.11.17 @8:30am. I also told him in the voicemail if that didn't work or he had any questions to please give me a call. documented in this encounter Plan of Treatment Not on file documented as of this encounter Visit Diagnoses Not on filedocumented in this encounter Care Teams Anodic Treater Relationship Specialty Start Date End Date Jason Batres MD [address] [place] [address] PCP - General 07/27/11 12/31/23 documented as of this encounter
--- OUTSIDE RECORDS SUMMARY | 2024-02-28 16:55 | XMS_ITS | Encounter Summary ---
Author Organization [facility] Address [address] [place] [address] Care Team Providers Care Furnace Room Supervisor Name Role Phone Jason Batres MD Primary Care Provi margarita Encounter Details Date Type Department Care Team (Late st Contact Info) Description 03/24/2014 Results Only Jason Batres MD, PC [address] [place], [place] [phone] Jason Batres MD [address] [place] [phone] Social History Tobacco Use Types Packs/Day [...] Name Priority Date/Time Associated Diagnosis Comments HOLD LAVENDER TOP Routine 03/24/2014 16: 16 EST documented in this encounter Results * HOLD PURPLE TOP (03/24/2014 16:16 EST) Hold Purple Top EDTA for hematology will be discarded after 48 hours, differential not available after 12 hours. 03/24/2014 17:35 EST [facility] BLOOD SPECIMEN / Unknown 03/24/2014 16:16 EST 03/24/2014 17:35 EST us Jason Batres MD LAB INFO SE RVICE AND SUPPORT & PHONE RESULT Final Result [facility] [address] [place] [address] documented in this encounter Visit Diagnoses Not on filedocumented in this encounter Care Teams Furnace Room Supervisor Relationship Specialty Start Date End Date Jason Batres MD [address] [place] [phone] PCP - General 07/27/11 12/31/23 documented as of this encounter
--- OUTSIDE RECORDS SUMMARY | 2024-02-28 16:55 | XMS_ITS | Encounter Summary ---
Author Organization [facility] Address [address] [place] [address] Care Team Providers Care Wholesale Account Manager Name Role Phone Jason Batres MD Primary Care Provi margarita Encounter Details Date Type Department Care Team (Late st Contact Info) Description 01/01/2015 Results Only Jason Batres MD, PC [address] [place], [place] [phone] Jason Batres MD [address] [place] [phone] Social History Tobacco Use Types Packs/Day [...] Procedure Name Priority Date/Time Associated Diagnosis Comments UA REFLEX Routine 01/01/2015 13:04 EDT documented in this encounter Results * UA REFLEX (01/01/2015 13:04 EDT) UA Billing Microscopic not indicated. 01/01/2015 18:04 EDT [facility] URINE / Unknown 01/01/2015 1 3:04 EDT 01/01/2015 17:50 EDT us Jason Batres MD URINALYSIS ORDERABL ES Final Result Performing Organization Address City/State/[facility] Co de Phone Number [facility] [address] [place] [address] documented in this encounter Visit Diagnoses Not on filedocumented in this encounter Care Teams Wholesale Account Manager Relationship Specialty Start Date End Date Jason Btares MD [address] [place] [id number] PCP - General 07/27/11 12/31/23 documented as of this encounter
--- OUTSIDE RECORDS SUMMARY | 2024-02-28 16:55 | XMS_ITS | Encounter Summary ---
Author Organization [facility] Address [address] [place] [address] Care Team Providers Care Blocker Polishing Name Role Phone Jason Batres MD Primary Care Provi margarita Reason for Visit * Reason Onset Date Comments Labs Only 01/01/2015 Encounter Details Date Type Department Care Team (Late st Contact Info) Description 01/01/2015 Orders Only Jason Batres MD, PC [address] [place], [place] [phone] Jason Batres MD [address] [place] [phone] Preop examination (Primary Dx) Social History Tobacco Use Types [...] as of this encounter Progress Notes * Mena Gomez - 01/01/2015 1251 EDT labs documented in this encounter Plan of Treatment Not on file documented as of this encounter Procedures Procedure Name Priority Date/Time Associated Diagnosis Comments URINALYSIS WITH MICROSCOPIC IF POSITIVE Routine 01/01/2015 13:04 EDT Preop examination URINE CULTURE IF POSITIVE Routine 01/01/2015 13:04 EDT Preop examination documented in this encounter Results * (ABNORMAL) URINALYSIS WITH REFLEX MICROSCOPIC (01/01/2015 13:04 EDT) Color, UA Yellow 01/01/2015 18:04 [facility] Clarity, UA Hazy 01/01/2015 18:04 [facility] Glucose, UA 2+(A) Neg 01/01/2015 18:04 [facility] Bilirubin, UA Neg Neg 01/01/2015 18:04 [facility] Ketones, UA Neg Neg 01/01/2015 18:04 [facility] Specific [place], Urine >1.030 1.001 - 1.035 01/01/2015 18:04 [facility] Blood, UA Neg Neg 01/01/2015 18:04 [facility] pH, UA 5.0 4.6 - 8.0 01/01/2015 18:04 [facility] Protein, UA Neg Neg 01/01/2015 18:04 [facility] Urobilinogen, UA 0.2 0.2 - 1.0 E.U./dl 01/01/2015 18:04 [facility] Nitrite, UA Neg Neg 01/01/2015 18:04 [facility] Leuk Esterase Neg Neg 01/01/2015 18:04 [facility] Refractometer SG,Urine 1.034 1.001 - 1.035 01/01/2015 18:04 [facility] Urine specimen (specimen) URINE / Unknown 01/01/2015 13:04 EDT 01/01/2015 17:50 EDT us Jason Batres MD URINALYSIS ORDERABL ES Final Result [facility] [address] [place] [address] * URINE CULTURE IF UA POSITIVE - NON POCT URINALYSIS ONLY (01/01/2015 13:04 EDT) Culture if Indicated Culture not indicated by urinalysis results. 01/01/2015 20:09 EDT [facility] Urine specimen (specimen) TOPOGRAPHY UNKNOWN / Unknown 01/01/2015 13:04 EDT 01/01/2015 17:50 EDT us Jason Batres MD MICROBIOLOGY - GENE RAL ORDERABLES Final Result Performing Organization Address [facility] Co de Phone Number [facility] [address] [place] [address] documented in this encounter Visit Diagnoses Diagnosis Preop examination- Primary Preoperative examination, unspecified documented in this encounter Care Teams Blocker Polishing Relationship Specialty Start Date End Date Jason Batres MD [address] [place] [address] PCP - General 07/27/11 12/31/23 documented as of this encounter
--- OUTSIDE RECORDS SUMMARY | 2024-02-28 16:55 | XMS_ITS | Encounter Summary ---
Author Organization [facility] Address [address] [place] [address] Care Team Providers Care Metal Crafts Teacher Name Role Phone Jason Batres MD Primary Care Provi margarita Reason for Visit * Reason Comments Hip Pain Left hip pain * Consult (Routine) - Closed Specialty Diagnoses / Procedures Referred By Eddie crocker Referred To Contact Orthopedic Surgery Diagnoses Hip pain Jason Batres MD Phone: tel: fax: Catalino Jones MD Referral ID Status Reason Start Date Expiration Date V isits Requested Visits Authorized [id number] Closed Specialty Services Required 06/18/2014 1 1 Encounter Details Date Type Department Care Team (Latest Contact Info) Description 07/06/2014 8:45 EDT Office Visit [facility] Total Joint Program - [address] [place], [place] [phone] Catalino Jones MD Osteoarthritis of left hip (Primary Dx); 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; Memory loss due to medical condition Discharge Disposition: Auto Discharge Social History Tobacco Use Types Packs/Day Years Used Date Smoking Tobacco: Never Tobacco Cessation:Counseling Given: No Alcohol Use Standard [...] - Inhaled Oxygen Concentration - - Weight 117 kg (258 lb) 07/06/2014 09 EDT per i ntake form Height 188 cm (6' 2) 07/06/2014904 EDT per in take form Body Mass Index 33.13 07/06/2014904 EDT documented in this encounter Discharge Diagnoses Diagnosis 719.45 JOINT PAIN-PELVIS[ICD-9-CM] 715.95 OSTEOARTHROS NOS-PELVIS[ICD-9-CM] 907.0 LATE EFFECT INTRACRANIAL INJ[ICD-9-CM] 780.93 MEMORY LOSS[ICD-9-CM] documented in this encounter Patient Instructions * Patient Instructions* Catalino Jones MD - 07/06/2014 11:59 EDT Together we have decided to proceed with surgery to address your ongoing pain and disability from your joint problem. You will meet with my nurse Sasha Kendall to discuss scheduling your surgery, as well as schedulinga comprehensive medical check-up with your primary care physician along with important blood work and urine testing. You will be offered the important opportunity to attend our Joint Replacement Class and I urge you to make every effort to attend. I encourage you to bring a family member or friend to support you. You should schedule a dental check-up with your dentist prior to your joint surgery to make sure your teeth and gums are as healthy as possible. You will be provided printed materials to read and share with your family and the friends who will be supporting you. I look forward to helping you have a safe and successful surgical experience. Please call if there is anything we can do to help you along the way. Thank you for placing your trust in our care here at [facility]. Dr. Catalino Jones [phone] for Sasha Kendall, my Registered Nurse [phone] for Adina Castle, my Belt And Link Shop Supervisor documented in this encounter Discharge Disposition Disposition Code Departure Means Destination Auto Discharge documented in this encounter Progress Notes * Catalino Jones MD - 07/06/2014 1145 EDT DECISION FOR HIP SURGERY NOTE Chief Complaint Patient presents with ??? Hip Pain Left hip pain SUBJECTIVE: Jeff Scott presents today for the purpose of discussing and scheduling elective left hip surgeryto address his hip pain and functional limitations that have been refractory to non-operative therapies so far. He reports night rest and activity limiting symptoms that have worsened over the last several years. This is despite medical management with oral medication. He is aware that hip injection is possible but he does not want to consider this option. 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 He is on a long-term disability as result of his brain tumor and subsequent memory loss of balance issues. He worked for approximately 20 years for [employer]. 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 He does have memory loss in balance issues that resulted from his illness. He is and his is concerned about surgical intervention in general and his postoperative care coordination. VAS pain score: 8 Capulin Hip Score: 19 UCLA Activity Score: 7 He feels he has failed comprehensive non-operative management including: ?? OTC oral analgesics ?? a structured exercise program ?? injection therapy offered ?? the offer/use of external support. Previous pertinent office notes and prior imaging studies were reviewed. Patient Active Problem List Diagnosis ??? 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 Craniopharyngioma ??? Memory loss due to medical condition ??? Hypothyroidism ??? Osteoarthritis of left hip PMH, SH, FH and ROS review: completed in [facility] RISK FACTORS SCREEN: Smoking history? no If yes, rationale for smoking cessation discussed (hard stop) Metal sensitivity? no If yes, consider LTT testing Skin reaction to adhesive tape? no Allergy to latex? no Allergy to local anesthetics (Lidocaine/Marcaine)? no Allergy to Iodine/Chlorhexadine?: no Diabetes Mellitus: no If yes, rationale for glycemic control with hgbA1c < 7.5 discussed (hard stop) Infection history? MRSA no VRE no If yes, adjust prophylactic antibiotic accordingly. Cardiac history? H/o GA? CHF? no S/p stents <24 months prior? no (if yes, no TXA) S/p CABG no Personal/family VTE history? negative If yes, consider hematology consult, no TXA order Bleeding history? no If yes, consider hematology consult Vascular disease?: no Neurologic disease?: YES (see above and [facility] notes) Pulmonary: Pneumonia ? (last 12 months) no Obstructive sleep apnea ? no If yes, inquire regarding CPAP use Acute/Chronic Anemia? no If yes, follow algorithm If hgb 10- 13, consider iron supplementation or erythropoietin therapy If hgb < 10 request further w/u by PCP/Hematology (hard stop) Renal failure? no Malnutrition? no If BMI < 20 or >40, order screening nutrition labs. Obesity? Body mass index is 33.11 kg/(m^2). If > 40.0, discussed rationale for weight reduction and target of < 40.0 (hard stop) Cognitive disorder? Perioperative delirium history no Alzheimer's/Dementia no elderly (> 80 yrs) Heterotopic bone (higher risk)? no If yes, consider XRT vs. NSAID Genitourinary history? Frequent UTI's no Obstructive symptoms? no If yes, order follow-up urology consultation (hard stop) ORTHOPAEDIC RISK FACTORS FOR THR: Smoking (305.1): no Chronic anticoagulant use (V58.61): no Morbid obesity (BMI > 40) (278.01): no Congenital hip deformity (755.63): no Chronic narcotic use (305.51): no Workmens compensation case (V70.3): no Previous intra-articular infection (711.08): no Previous hip ORIF (715.25): no Depression/psychiatric disease (300.9): no PHYSICAL EXAM: He is well appearing and in no acute distress. VS and pain report reviewed. General: Well-appearing male in no acute distress. Mood and affect appropriate. A and O x3. gait: Arises from seated position with pain, normal station with level pelvis in standing position with an antalgic gait on left side limb length discrepancy: none left hip: skin: intact to inspection with relevant scar/lesion tenderness: None AROM = PROM: limited by pain, 100 degrees flexion, 10 degrees internal rotation, 10 degrees external rotation, 20 degrees abduction and 20 degrees adduction MMT: 5-/5 or better for all hip girdle muscles tested bilateral knee: skin: healthy appearing without relevant lesion(s) ROM exam shows 5 to 120 motion. manual muscle testing: Knee extension 5/5 and knee flexion 5/5 stability testing shows no instability to AP or varus-valgus stress. alignment: mild varus bilateral lower leg: skin: Healthy in appearance, no trophic changes ankle: no pathologic malalignment or laxity detected Neurologic Exam: Intact light touch sensation below the knee. Vascular: 2+ PT 2+DP Rt = Lt, no ulcers/skin lesions REVIEW OF IMAGING: Ortho AP pelvis and frog lateral view of hip are personally reviewed revealing: Kellgren-Renzo grade 4 right hip changes Kellgren-Renzo grade 4 left hip changes no other clinically significant abnormalities seen, normal soft tissue patterns Advanced imaging: none ASSESSMENT: End-stage bilateral hip DJD, gradually worsening with marked left groin pain, restricted ROM and loss of mobility that does negatively impact the activities of daily living despite self-care and non-operative interventions. Surgical treatment option(s): We discussed the spectrum of non-operative (activity moderation, cane use, physical therapy, oral medication and short-term relief with injection) vs. operative treatment options using shared decision-making techniques and printed decision support tools. As part of the education materials provided, we reviewed the potential benefits of hip arthroplastyincluding sustained pain relief, although perhaps not complete and the potential for functional moravian. It was stressed that hip replacement surgery should only be considered based on the level and chronicity of pain, functional limitations and the impact of quality of life and not simply on the degree of arthritis seen on hip x-rays. As part of the education materials provided, we also reviewed the potential problems that can arisewith any invasive procedure. We discussed the potential risks of elective hip arthroplasty including: acute and delayed-onset infection, hip joint instability/dislocation, neurovascular injury including footdrop, deep venous thrombosis and/or pulmonary embolism, intraoperative and postoperative fracture, wear/failure of the implant materials, leg length discrepency, early or late loosening of the implant(s), continued pain despite surgical treatment, temporary or permanent worsening of other medical conditions, anesthetic complications, and perioperative mortality (). Specifically, thepotential for additional surgical procedures to address one or more of these perioperative complications was reviewed. He was also made aware that there can be complications that we did not discuss today given the nature of surgical intervention. Preoperative health risk-reduction recommended. (see above for specific data) The patient's questions were solicited and responded to with the patient's verbalized satisfaction. Greater than 50% of today's 40 minute encounter was devoted to counseling and care coordination (35minutes) . DISPOSITION: After our discussion, with his degree of discomfort and disability, he decided he would like to proceed with elective total hip arthroplasty. ELECTIVE SURGERY TIMING: Delay scheduling until modifiable risk addressed to the maximal extent possible INDICATIONS: Diagnosis: 715.95 Symptoms: refractory pain at the site of the hip despite an acetaminophen/NSAID trial, structured exercise program, and the use/offer of external support. Physical findings: diminished ROM consistent with hip arthropathy and pain with range of motion. Radiographic: hip joint space narrowing, subchondral bone changes, periarticular bone deformity including osteophytes PROCEDURE BOOKING: Left total hip arthroplasty (CPT 58516) VERILAST Diagnostic: Routine preop labs Pre-operative consultation with PCP for risk factor assessment and co-morbid condition treatment recommendations Pre-operative Anesthesia Consultation: no indication Therapeutic: [facility] Pre-operative PT referral for therapeutic exercise Rx, assess role for TENS, Dental prophylaxis screening VTE prophylaxis plan: ASA Discharge Plan: Initial home health PT services (Phase I) followed by early transition to out-patient PT. 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
--- OUTSIDE RECORDS SUMMARY | 2024-02-28 16:55 | XMS_ITS | Encounter Summary ---
Author Organization [facility] Address [address] [place] [address] Care Team Providers Care Crib Tender Name Role Phone Jason Batres MD Primary Care Provi margarita Reason for Visit * Reason Onset Date Comments Medications Refill 04/21/2015 Encounter Details Date Type Department Care Team (Late st Contact Info) Description 04/21/2015 Refill Jason Batres MD, PC [address] [place], [place] [address] Jason Baters MD [address] [place] [phone] Medications Refill Social History Tobacco Use Types [...] mouth daily. 90 Tab 1 04/21/2015 07/24/2016 documented in this encounter Plan of Treatment Not on file documented as of this encounter Visit Diagnoses Not on filedocumented in this encounter Discontinued Medications Medication Sig Discontinue Reason Start Date End Da te levothyroxine (SYNTHROID) 112 mcg tablet Take 112 mcg by mouth daily. Reorder 04/21/2015 documented as of this encounter Care Teams Crib Tender Relationship Specialty Start Date End Date Jason Batres MD [address] [place] [address] PCP - General 07/27/11 12/31/23 documented as of this encounter
--- OUTSIDE RECORDS SUMMARY | 2024-02-28 16:55 | XMS_ITS | Encounter Summary ---
Author Organization [facility] Address [address] [place] [address] Care Team Providers Care Strip Winder Name Role Phone Jason Batres MD Primary Care Provi margarita Encounter Details Date Type Department Care Team (Late st Contact Info) Description 12/29/2014 Phlebotomy Only [address] [address] Stars Coordinator, Outpatient Pain in joint, pelvic region and thigh; Osteoarthritis of pelvic region; Diabetes ([facility]) ([facility]) Social History Tobacco Use [...] Procedure Name Priority Date/Time Associated Diagnosis Comments PRE-OP TYPE AND SCREEN Routine 12/29/2014 10:14 EDT Diabetes ([facility]) ([facility]) Osteoarthritis of pelvic region Pain in joint, pelvic region and thigh COMPLETE BLOOD COUNT AND DIFFERENTIAL Routine 12/29/2014 10:14 EDT Diabetes ([facility]) ([facility]) Osteoarthritis of pelvic region Pain in joint, pelvic region and thigh HEMOGLOBIN A1C Routine 12/29/2014 10:14 EDT Diabetes (CMS-HCC) ([facility]) Osteoarthritis of pelvic region Pain in joint, pelvic region and thigh BASIC METABOLIC PANEL (BMP) Routine 12/29/2014 10:14 EDT Pain in joint, pelvic region and thigh Osteoarthritis of pelvic region Diabetes (CMS-HCC) ([facility]) documented in this encounter Results * PRE-OP BLOOD BANK DRAW (12/29/2014 10:14 EDT) Pre-Op Blood Bank Lab Draw SPECIMEN RECEIVED ACCEPTABLE 12/29/2014 12:32 EDT [facility] BLOOD SPECIMEN / Unknown 12/29/2014 10:14 EDT 12/29/2014 10:33 EDT Catalino Jones MD BLOOD BANK TESTS Final Result Performing Organization Address City/State/[facility] Co de Phone Number [facility] [address] [place] [address] * HEMOGLOBIN A1C (12/29/2014 10:14 EDT) Hemoglobin A1C 8.3 % 12/29/2014 15:25 EDT [facility] Comment: Reference Range: <5.7% Normal 5.7-6.4% Increased risk for diabetes =>6.5% Diagnostic for diabetes (if confirmed) The A1c goal for non adults in general is <7%. The A1c goal for selected patients may be significantly lower than 7% if this can be achieved without significant hypoglycemia or other adverse effects of treatment. Est Avg Glucose 192 mg/dl 5 15:25 EDT [facility] Comment: eAG represents the A1c result expressed as average glucose in mg/dl. Blood specimen (specimen) BLOOD SPECIMEN / Unknown 12/29/2014 10:14 EDT 12/29/2014 10:33 EDT Catalino Jones MD CHEMISTRY & BLOOD GAS ORDERABLES Final Result [facility] [address] [place] [address] * HEMAGRAM AND DIFFERENTIAL (12/29/2014 10:14 EDT) WBC 7.20 4.0 - 10.4 K/cmm 12/29/2014 11:16 [facility] RBC 4.56 4.36 - 5.78 M/cmm 12/29/2014 11:16 [facility] Hemoglobin 14.6 13.8 - 17.3 gm/dl 12/29/2014 11:16 [facility] HCT 42.3 39.5 - 50.2 % 12/29/2014 11:16 [facility] MCV 93 81 - 95 fl 12/29/2014 11:16 [facility] MCH 31.9 27.6 - 33.0 pg 12/29/2014 11:16 [facility] MCHC 34.4 32.8 - 36.4 gm/dl 12/29/2014 11:16 [facility] RDW-CV 13.5 11.8 - 14.1 % 12/29/2014 11:16 [facility] RDW-SD 43.8 36.5 - 45.9 fl 12/29/2014 11:16 [facility] PLT 212 141 - 320 K/cmm 12/29/2014 11:16 [facility] MPV 9.0 7.5 - 11.2 fl 12/29/2014 11:16 [facility] % Neutrophils 66.6 45.5 - 79.7 % 12/29/2014 11:16 [facility] % Lymphocytes 24.3 15.0 - 46.8 % 12/29/2014 11:16 [facility] % Monocytes 7.0 1.8 - 12.0 % 12/29/2014 11:16 [facility] % Eosinophils 1.4 0.6 - 6.9 % 12/29/2014 11:16 [facility] % Basophils 0.7 0.2 - 1.4 % 12/29/2014 11:16 [facility] ABS Neutrophils 4.80 2.20 - 8.85 K/cmm 12/29/2014 11:16 [facility] ABS Lymphs 1.75 1.09 - 3.30 K/cmm 12/29/2014 11:16 [facility] ABS Monocytes 0.50 0.1 - 0.8 K/cmm 12/29/2014 11:16 [facility] ABS Eosinophils 0.10 0.03 - 0.61 K/cmm 12/29/2014 11:16 [facility] ABS Basophils 0.05 0.01 - 0.11 K/cmm 12/29/2014 11:16 [facility] Type of Diff: Automated 12/29/2014 11:16 [facility] Blood specimen (specimen) BLOOD SPECIMEN / Unknown 12/29/2014 10:14 EDT 12/29/2014 10:33 EDT us Catalino Jones MD PACKAGES & DNA PROBE O RDERABLES Final Result [facility] [address] [place] [address] * (ABNORMAL) BASIC METABOLIC PANEL (12/29/2014 10:14 EDT) Sodium 138 136 - 145 mEq/L 12/29/2014 11:35 [facility] Potassium 4.3 3.5 - 5.0 mEq/L 12/29/2014 11:35 [facility] Chloride 105 96 - 110 mEq/L 12/29/2014 11:35 [facility] CO2 25 24 - 32 mEq/L 12/29/2014 11:35 [facility] BUN 16 10 - 26 mg/dl 12/29/2014 11:35 [facility] Creatinine 0.83 0.66 - 1.25 mg/dl 12/29/2014 11:35 [facility] GFR, Calculated 100 >60 ml/min/1.7 3m2 12/29/2014 11:35 EDT [facility] Comment: eGFR calculated using CKD-EPI equation for non Americans. Multiply eGFR by 1.16 for Americans. Calcium 9.9 8.5 - 10.5 mg/dl 12/29/2014 11:35 EDT [facility] Calculated Calcium 9.8 8.5 - 10.5 mg/dl 12/29/2014 11:35 EDT [facility] Glucose, Serum 149(H) 70 - 100 mg/dl 12/29/2014 11:35 EDT [facility] Fasting? No 12/29/2014 10:15 EDT [facility] Blood specimen (specimen) BLOOD SPECIMEN / Unknown 12/29/2014 10:14 EDT 12/29/2014 10:33 EDT Catalino Jones MD CHEMISTRY & BLOOD GAS ORDERABLES Final Result [facility] [address] [place] [address] documented in this encounter Visit Diagnoses Diagnosis Pain in joint, pelvic region and thigh Osteoarthritis of pelvic region Osteoarthrosis, unspecified whether generalized or localized, pelvic region and thigh Diabetes ([facility]) Type II or unspecified type diabetes mellitus without mention of complication, not stated as uncontrolled documented in this encounter Care Teams Strip Winder Relationship Specialty Start Date End Date Jason Batres MD [address] [place] [address] PCP - General 07/27/11 12/31/23 documented as of this encounter
--- OUTSIDE RECORDS SUMMARY | 2024-02-28 16:55 | XMS_ITS | Encounter Summary ---
Author Organization [facility] Address [address] [place] [address] Care Team Providers Care Neuropsychiatrist Name Role Phone Jason Batres MD Primary Care Provi margarita Reason for Visit * Reason Onset Date Comments Appointment Related 02/10/2016 Encounter Details Date Type Department Care Team (Late st Contact Info) Description 02/10/[address], [address] [place], [place] [address] Cht, Admin Appointment Related Social History Tobacco [...] * Telephone Encounter - Vanessa Adhikari - 02/10/2016 1149 EST Pt called to reschedule missed CHT SW appointment for 02/13 @ [facility]. documented in this encounter Plan of Treatment Not on file documented as of this encounter Visit Diagnoses Not on filedocumented in this encounter Care Teams Neuropsychiatrist Relationship Specialty Start Date End Date Jason Batres MD [address] [place] [address] PCP - General 07/27/11 12/31/23 documented as of this encounter
--- OUTSIDE RECORDS SUMMARY | 2024-02-28 16:55 | XMS_ITS | Encounter Summary ---
Author Organization [facility] Address [address] [place] [address] Care Team Providers Care Laundry Aid Name Role Phone Jason Batres MD Primary Care Provi margarita Reason for Visit * Reason Onset Date Comments Wound Infection 03/13/2016 Encounter Details Date Type Department Care Team (Late st Contact Info) Description 03/13/2016 Telephone Jose Alvarez MD, [facility] [address] [place], [place] [id number] Aviva Carrillo RN [address] [facility] [address] [place] [address] Wound Infection Social History Tobacco Use Types Packs/Day Years [...] Telephone Encounter - Aviva Alvarez RN - 03/15/2016 0896 EST Patient was seen here on 03/14/16 and will follow up again next week. Aviva Alvarez RN * Telephone Encounter - Aviva Alvarez RN - 03/15/2016 1417 EST I left a message for patient to call back to schedule an appointment this Sunday. Aviva Alvarez RN * Telephone Encounter - Jason Batres MD - 03/13/2016 1639 EST He should follow-up here to evaluate the wound. So yes, he can see Carmelita Hogue NP on Sunday. I would also defer to orthopedics and hopefully they can give some instruction as far as wound care. As far as his diet, we have been discussing this for years and he has seen the [facility]. 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 I can discuss his chewing tobacco at a follow-up visit Jason Batres MD * Telephone Encounter - Aviva Alvarez RN - 03/13/2016 1343 EST Patient went to the ED last week because of a wound on his toe, right foot 2nd toe. His calledto let us know this today. She stated that he is taking antibiotic QID currently and needing dressing changes. She would like to know if patient could come in for dressing changes and regular skin checks as she does not believe that he is washing properly and cannot clean his feet well on his own. Patient is scheduled to see Orthopedics this Sunday for a wound check. His stated that she is trying to wean him of her help and situation and that currently they are living in a roommate situation. She also has concerns about his diabetes and diet and has been trying to help him with this for years but he is unable to follow. She often finds candy and snacks in his room. He is also chewing tobacco again. She is not sure if this is something that the CHT could help with or if this is something for the PCP but specific written instructions on what he should be doing for skin care as well as diet would be needed so that he can refer to this daily. Patients is unable to be a part of appointments because of her job and stated that she is trying to have him do things on his own. She is okay with us calling her if we have any questions. Aviva Alvarez RN documented in this encounter Plan of Treatment Not on file documented as of this encounter Visit Diagnoses Not on filedocumented in this encounter Care Teams Laundry Aid Relationship Specialty Start Date End Date Jason Batres MD [address] [place] [id number] PCP - General 07/27/11 12/31/23 documented as of this encounter
--- OUTSIDE RECORDS SUMMARY | 2024-02-28 16:55 | XMS_ITS | Encounter Summary ---
Author Organization [facility] Address [address] [place] [address] Care Team Providers Care Deputy Probation Officer Name Role Phone Jason Batres MD Primary Care Provi margarita Encounter Details Date Type Department Care Team (Late st Contact Info) Description 02/17/2016 11:30 EST - 02/17/2016 11:31 EST Hospital Encounter [facility] - [address] [address] Jason Batres MD [address] [place] [address] [phone] Discharge Disposition: Home or Self Care Social [...] E11.9 Type 2 diabetes mellitus without complications-E11.9[ICD-10-CM] R74.8 Abnormal levels of other serum enzymes-R74.8[ICD-10-CM] documented in this encounter Medications at Time [...] filedocumented in this encounter Care Teams Deputy Probation Officer Relationship Specialty Start Date End Date Jason Batres MD [address] [place] [address] PCP - General 07/27/11 12/31/23 documented as of this encounter
--- OUTSIDE RECORDS SUMMARY | 2024-02-28 16:55 | XMS_ITS | Encounter Summary ---
Author Organization [facility] Address [address] [place] [address] Care Team Providers Care Hotel Server Name Role Phone Jason Batres MD Primary Care Provi margarita Reason for Visit * Reason Onset Date Comments Pre-visit Orders 09/15/2014 Encounter Details Date Type Department Care Team (Late st Contact Info) Description 09/15/2014 Telephone Jason Batres MD, [facility] [address] [place], [place] [phone] Makeda Cai RN [address] [place] [address] Pre-visit Orders Social History Tobacco Use Types Packs/Day Years [...] encounter Miscellaneous Notes * Telephone Encounter - Makeda Rosen RN - 09/15/2014 1052 EDT Health Maintenance Topic Date Due ??? HEPATITIS C SCREEN due ??? BEHAVIORAL HEALTH SCREEN due ??? PERTUSSIS (ADULT) IMMUNIZATION due ??? HIV SCREENING due ??? PREVENTATIVE CARE VISIT due ??? TETANUS (ADULT) IMMUNIZATION due ??? COLON CANCER SCREENING COLONOSCOPY due ??? LIPID PROFILE SCREENING (CHOLESTEROL) 03/24/2019 documented in this encounter Plan of Treatment Not on file documented as of this encounter Visit Diagnoses Not on filedocumented in this encounter Care Teams Hotel Server Relationship Specialty Start Date End Date Jason Batres MD [address] [place] [address] PCP - General 07/27/11 12/31/23 documented as of this encounter
--- OUTSIDE RECORDS SUMMARY | 2024-02-28 16:55 | XMS_ITS | Encounter Summary ---
Author Organization [facility] Address [address] [place] [address] Care Team Providers Care Policy Writer Typist Name Role Phone Jason Batres MD Primary Care Provi margarita Reason for Visit * Reason Onset Date Comments Appointment Related 12/06/2015 Encounter Details Date Type Department Care Team (Late st Contact Info) Description 12/06/[address], [address] [place], [place] [address] Cht, Admin Appointment Related Social History Tobacco [...] * Telephone Encounter - Vanessa Adhikari - 12/06/2015 1518 EDT Pt called CHT to schedule RD appointment @ [facility] on 12/29. documented in this encounter Plan of Treatment Not on file documented as of this encounter Visit Diagnoses Not on filedocumented in this encounter Care Teams Policy Writer Typist Relationship Specialty Start Date End Date Jason Batres MD [address] [place] [address] PCP - General 07/27/11 12/31/23 documented as of this encounter
--- OUTSIDE RECORDS SUMMARY | 2024-02-28 16:55 | XMS_ITS | Encounter Summary ---
Author Organization [facility] Address [address] [place] [address] Care Team Providers Care Brand Planner Name Role Phone Jason Batres MD Primary Care Provi margarita Reason for Visit * Reason Comments Foot Swelling patient reports a fe w month history of right foot swelling. Then dropped piece of wood on foot and the swelling is worse. Is a Type II diabetic. Encounter Details Date Type Department Care Team (Late st Contact Info) Description 03/09/2016 14:02 EST - 03/09/2016 21:00 EST Emergency [facility] Emergency Department - [address] [id number] Turner Hurtado PA-C [address] [place] [phone] Edson Brink MD [address] [place] [phone] Reilly Sevilla MD Emergency, MD Cari Osteomyelitis of toe ([facility]) (Primary Dx) Discharge Disposition: Home or Self [...] Sign Reading Time Taken Comments Blood Pressure 160/92 03/09/2016 1410 EST Pulse 92 03/09/2016 1410 EST Temperature 36.9 ??C (98.4 ??F) 03/09/2016 1410 EST Respiratory Rate 16 03/09/2016 1410 EST Oxygen Saturation 98% 03/09/2016 1410 EST Inhaled Oxygen Concentration - - Weight 115.7 kg (255 lb) 03/09/2016 1410 EST Height 188 cm (6' 2) 03/09/2016 1410 EST Body Mass Index 32.74 03/09/2016 1410 EST documented in this encounter Discharge Diagnoses Diagnosis M86.171 Other acute osteomyelitis, right ankle and foot-M86.171[ICD-10-CM] E11.9 Type 2 diabetes mellitus without complications-E11.9[ICD-10-CM] E03.9 Hypothyroidism, unspecified-E03.9[ICD-10-CM] Z79.84 long-term (current) use of oral hypoglycemic drugs-Z79.84[ICD-10-CM] documented in this encounter Discharge Instructions * Discharge Instructions* Reilly Sevilla MD - 03/09/2016 19:42 EST Take the antibiotics as directed. Continue wet-to-dry dressings every 12 hours as shown by the orthopedist. The foot and ankle clinic should be contacting you within the next day or so. Call them if you havenot heard from them by Sunday. Return if fever over 101.5, obviously increasing redness swelling ordrainage. documented in this encounter Medications at Time of Discharge blood glucose meter (FREESTYLE FREEDOM LITE) Test FS BID. 1 Each 0 11/11/2013 blood glucose (FREESTYLE TEST) test strips 1 [place] [facility] [place]; combo route) route 2 times daily 100 Each 1 05/11/2014 11/18/2021 cephALEXin (KEFLEX) 500 mg capsule Take 1 Cap by mouth 4 times daily for 7 days. 28 Cap 03/09/2016 03/15/2016 glimepiride (AMARYL) 2 mg tablet Take 1 [...] times daily 360 Tab 3 02/22/2015 03/10/2016 sitaGLIPtin (JANUVIA) 50 mg tablet Take 50 mg by mouth daily. 03/10/2016 documented as of this encounter Ordered Prescriptions Prescription Sig Dispense Quantity Refills Last Filled Start Date End Date cephALEXin (KEFLEX) 500 mg capsule Take 1 Cap by mouth 4 times daily for 7 days. 28 Cap 03/09/2016 03/15/2016 cephALEXin (KEFLEX) 500 mg capsule Take 1 Cap by mouth 4 times daily for 7 days. 28 Cap 03/09/2016 03/09/2016 documented in this encounter Discharge Disposition Disposition Code Departure Means Destination Home or Self Jail documented in this encounter ED Notes * Florence Lord RN - 03/09/20162057 EST Discharge instructions reviewed with patient. Patient able to verbalize good understanding of information as presented. Will follow up with ortho or return to the ED for continued or worsening symptoms. * Florence Lord RN - 03/09/2016 1851 EST ORTHO in to speak with patient. Support person at bedside. * Reilly Sevilla MD - 03/09/2016 6607 EST Jailene Jauregui, am scribing for Reilly Sevilla MD while he/she is personally performing the service. Jailene Garcia 03/09/2016 17:47 I assumed care of patient from Dr. Esdon Brink. I discussed the case with the orthopedist . They performed a biopsy the toe for culture to guide further treatment. They recommended starting him on Keflex for a week and will follow him closely in foot and ankle clinic with planned debridement and/or amputation. He was discharged in stable condition. Pt re-evaluated immediately prior to discharge with Improved symptoms, normal vital signs, and tolerating PO. Pain level prior discharge: 2. The patient feels this is appropriate for outpatient management with oral analgesia. Discussed clinical/diagnostic findings. Discharged with a clear plan for outpatient follow up. Given usual and customary return instructions prior to discharge. Prior to discharge my usual and customary return precautions were reviewed with the patient and/or family. This included follow-up instructions and reasons to return to the Emergency Department if condition worsens, does not improve as expected, or other new concerns arise. This documentation is recorded by Jailene Garcia acting as Scribe under the direction and presence of Reilly Sevilla MD. Reilly Sevilla MD: I personally performed the services recorded by the scribe in my presence. I confirm the scribe's documentation has been reviewed by me to accurately and completely record my work, treatment, procedures, and medical decision making. * Raheem Moscoso - 03/09/2016 1644 EST Blood drawn via saline lock per protocol, tiger and purple tube(s) sent to lab per order. * Edson Brink MD - 03/09/2016 1606 EST I, Janiya Juárez, am scribing for Edson Brink M.D. while he is personally performing the service. Janiya Juárez 03/09/2016 16:06 I performed a history and exam of this patient and discussed the case with the PA. Any descrepency between my chart and the PA chart reflect differences in the history and exam that were present on my evaluation of the patient. I fully participated in the patient's care. My plan is outlined below. The patient reports slamming his left foot, 2nd toe on a wood pile a few months ago. He states thatthe end of the toe was raw and swollen, he lost his toenail, and it took a long time to heal. He endorses dropping a piece of wood on his toe 2 weeks ago and reports his toe has become more swollen since then. He associates tingling in his toe swelling up to his lower leg but denies pain. He reports some numbness in his feet. He denies fevers or chills. He reports feeling chronically weak and fatigued due to brain surgery but no acute changes. He denies nausea, vomiting, or trouble eating. ROS: My standard 10 point review of systems for this complaint is otherwise negative PE: Nontoxic appearing, normocephalic atraumatic, mucous membranes are moist, neck supple, lungs are clear bilaterally, heart regular rhythm, abdomen soft and nontender. No rash on visible skin. Bruise over first metatarsal where cuboid bones are. Swelling of 2nd toe with open wound at the tip with some skin breakdown. Tender of junction of midfoot and forefoot and over the 2nd metatarsal. 2+ DP and TP pulses. No erythema or tracking up the leg. No gross deformities of extremities. No edema. Awake and alert. Patient is following commands speaking in full sentences. Affect is normal. ASSESSMENT & PLAN: 55 old male who clinically has osteomyelitis of his toe. We will obtain x-rays, and we will consultorthopedics since he has good pulses in the foot, I think they are more appropriate consultants of vascular surgery. Patient had left foot X-ray, which was significant for left 2nd distal phalanx is corroded away andhas clear signs of osteomyelitis. Patient had x-rays that were obtained, reviewed, and interpreted by myself and discussed with a radiologist. Please see radiology report for further details. The patient was consulted by orthopedics and signed out to Dr. Sevilla. This documentation is recorded by Janiya Juárez acting as Scribe under the direction and presence of Edson Brink M.D.: I personally performed the services recorded by the scribe in my presence. I confirm the scribe's documentation has been reviewed by me to accurately and completely record my work,treatment, procedures, and medical decision making. * Turner Hurtado PA - 03/09/2016 1545 EST DOS: 03/09/2016 Chief Complaint Patient presents with ??? Foot Swelling patient reports a few month history of right foot swelling. Then dropped piece of wood on foot and the swelling is worse. Is a Type II diabetic. HPI The patient is a 55 y.o. male who presents today with Foot Swelling (patient reports a few month history of right foot swelling. Then dropped piece of wood on foot and the swelling is worse. Is a Type II diabetic. ) HPI Comments: 55-year-old male diabetic is here with chief complaint of evaluation of right second toe. Patient states that approximately 2 months ago he injured his toe accidentally kicking a piece of firewood, today he states that he dropped a piece of wood on his toe. He arrives with the toe appearing moderately swollen which appears more chronic in nature with the distal tip draining The history is provided by the patient. Review of Systems Review of Systems Constitutional: Negative for chills and fever. HENT: Negative for congestion, sore throat and trouble swallowing. Eyes: Negative. Respiratory: Negative for chest tightness and shortness of breath. Cardiovascular: Negative. Negative for chest pain, palpitations and leg swelling. Gastrointestinal: Negative for abdominal distention and abdominal pain. Endocrine: Negative. Genitourinary: Negative. Negative for dysuria and flank pain. Musculoskeletal: Negative. Negative for arthralgias. Skin: Negative. Negative for color change and rash. Allergic/Immunologic: Negative. Negative for immunocompromised state. Neurological: Negative. Negative for dizziness and headaches. Hematological: Negative. Negative for adenopathy. Does not bruise/bleed easily. Psychiatric/Behavioral: Positive for decreased concentration. Negative for confusion. All other systems reviewed and are negative. The patient's past medical, family and social history was reviewed and updated as needed. No Known Allergies Vital Signs Temp: 36.9 ??C (98.4 ??F) Temp src: Oral Pulse: 92 Resp: 16 SpO2: 98 % BP: (!) 160/92 BP Device: BP Machine O2 Device: None (Room air) Physical Exam Constitutional: He appears well-developed and well-nourished. HENT: Head: Normocephalic and atraumatic. Right Ear: External ear normal. Left Ear: External ear normal. Nose: Nose normal. Mouth/Throat: Oropharynx is clear and moist. Eyes: Pupils are equal, round, and reactive to light. Right eye exhibits no discharge. Left eye exhibits no discharge. Neck: Normal range of motion. Neck supple. No tracheal deviation present. Cardiovascular: Normal rate, regular rhythm, normal heart sounds and intact distal pulses. Pulmonary/Chest: Effort normal and breath sounds normal. No respiratory distress. He has no wheezes. He has no rales. Abdominal: Soft. He exhibits no distension. There is no tenderness. There is no rebound. Musculoskeletal: Normal range of motion. He exhibits no edema. Neurological: He is alert. He has normal strength. He is not disoriented. No cranial nerve deficit or sensory deficit. Coordination normal. Skin: Skin is warm and dry. No rash noted. He is not diaphoretic. Psychiatric: He has a normal mood and affect. His behavior is normal. Thought content normal. Nursing note and vitals reviewed. RESULTS EKG orders: None Radiology orders: TOES 2 OR MORE VIEWS Imaging Reviewed. I have independently reviewed the images. Results are notable for Severe ostial myelitis to the distal tuft of right second ED Lab Results Labs Reviewed BASIC METABOLIC PANEL - Abnormal Result Value Status Glucose, Serum 233 (*) Final Sodium 142 Final Potassium 4.4 Final Chloride 103 Final CO2 25 Final BUN 18 Final Creatinine 0.72 Final GFR, Calculated 106 Final Calcium 9.7 Final Calculated Calcium 9.5 Final Fasting? Unknown Final HEMAGRAM AND DIFFERENTIAL - Abnormal RBC 4.27 (*) Final Hemoglobin 13.6 (*) Final HCT 39.0 (*) Final WBC 6.48 Final MCV 91 Final MCH 31.9 Final MCHC 34.9 Final RDW-CV 12.3 Final RDW-SD 40.9 Final PLT 203 Final MPV 10.2 Final Neutrophils 64.9 Final Lymphocytes 24.4 Final Monocytes 7.3 Final Eosinophils 2.3 Final Basophils 0.8 Final Immature Grans 0.3 Final ABS Neutrophils 4.21 Final ABS Lymphs 1.58 Final ABS Monocytes 0.47 Final ABS Eosinophils 0.15 Final ABS Basophils 0.05 Final ABS Immature Grans 0.02 Final Type of Diff: Automated Final C REACTIVE PROTEIN - Abnormal C Reactive Protien 11.7 (*) Final ANAEROBE CULTURE/SMEAR(INC. AEROBES), TISSUE SED. RATE:WESTERGREN Sed. Rate Westergren 14 Final Relevant Data Procedures ED COURSE A medical screening exam was performed. Patient was seen by Dr. Emery Sevilla and Drew from orthopedics with attempted debridement of the toe. Plan was that the patient home on Keflex with follow-up with the fence manufacture supervisor ASSESSMENT AND PLAN Final diagnoses: Osteomyelitis of toe DISPOSITION: Discharged The patient's pain was managed to an adequate level weighing risk vs. benefit of further medications. Upon departure from the Emergency Department, the patient's pain was on a zero to ten scale. Condition at departure from the Emergency Department: Stable PCP: Jason Brink was available for supervision. 03/09/2016 21:10 No flowsheet data found. * Haydee Espinosa RN - 03/09/2016 1410 EST Patient reports little to no pain. Patient alert, walks to Triage without difficulty. Patient alert, appropriately responsive to questions Skin warm, dry, pink. Foot not examined at Triage. documented in this encounter Miscellaneous Notes * ED Consult - Edson Yanes MD - 03/09/2016 0000 EST Images from the original note were not included. ED CONSULTATION SERVICE DATE: 03/09/2016 ED CONSULTATION REQUESTED BY: Reilly Sevilla MD for concern of right 2nd toe diabetic wound. CHIEF COMPLAINT: Swollen red hot 2nd toe. HPI: Mr Scott is a pleasant 55-year-old male with a past medical history significant for craniopharyngioma operated in 2003, hypothyroidism and diabetes, who presents with a swollen 2nd toe on his right foot. In December 2015, the patient stubbed his toe and the wound never really healed, is what hesays. This went on for a few months and about 2 weeks ago, he reports dropping a block of firewood on his toe. Since then, the toe has been swollen and red and somewhat painful. The pain comes and goes and does not seem to be affecting his life. The patient decided to come in today because his son was visiting and convinced him that his wound on his toe was significant enough to go see a doctor. The patient rates the pain as 0/10. The patient denies any systemic signs of infection such as fever, chills, nausea, vomiting, diarrhea. The patient denies chest pain, shortness of breath, abdominal pain or any other issue besides this toe swelling. PAST MEDICAL HISTORY: Includes craniopharyngioma, hypothyroidism, and diabetes. His diabetes is poorly controlled and his last hemoglobin A1c was done on 02/17/2016, and it was a 10.0. His sugars generally range above 200. PAST SURGICAL HISTORY: In 2003 he had a neurosurgical operation for the craniopharyngioma at [facility]. MEDICATIONS: The patient is taking: Metformin, glimepiride, Januvia, and Synthroid. Three diabetes medications and 1 thyroid medication. ALLERGIES: No known drug allergies. SOCIAL HISTORY: The patient is currently unemployed since his brain tumor operation. 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 The patient lives in [place], [place] with his wifefatoumata. His son was visiting from college today. OBJECTIVE: Skin: The right 2nd digit is swollen and erythematous as seen in the picture below. The erythema extends to the MTP joint and does not extend proximally. The swelling is moderate, located throughout the 2nd digit. Sensation is intact to light touch on saphenous, sural, superficial peroneal, deep peroneal, tibialnerves distally. Sensation is intact to light touch in all of the digits of the right foot. Motor: The patient is able to flex and extend all of his toes. All of the patient's toes are warm and well perfused. There is a 2 cm lesion that has been scabbed and granulated over on the distal aspect of the 2nd digit. A small amount of purulent drainage is present when squeezing his digit tightly. The lesion does probe deep and does probe to bone through a small poke hole. The patient lacks sensation in the deep tissues of the 2nd digit. DIAGNOSTIC DATA: Labs drawn were not significant for any sign of infection. Labs include the CRP at11.7, white blood cell count at 6.5, ESR at 14, all of which are within normal limits. The CRP is slightly elevated. IMAGING: AP and lateral radiographs of the foot were obtained and reviewed by myself. This 2nd distal phalanx shows evidence of osteomyelitis and destruction of the bony elements of the 2nd distal phalanx. PROCEDURES: The potential option of a tissue culture and sample was presented to the patient as well as the risks and benefits and alternatives to the procedure. The patient understood and elected toproceed with a tissue biopsy using an Adson pickup and a small rongeur through a 0.5 cm poke hole lesion, a tissue biopsy was attempted. 1 to 2 cc's of tissue were obtained from the deep wound. A bony culture was attempted, but the skin on the distal toe appeared to be intact and a true deep bony culture would have been more difficult and may damage surrounding tissue significantly. Sample may contain a small amount of necrotic or infected bone. ASSESSMENT AND PLAN: This is a 55-year-old man with a past medical history significant for uncontrolled diabetes with a last A1c of 10.0, presenting today with a right 2nd digit toe ulcer status postdebrided and cultured. There is no concern for systemic infection at this time. The infection appears to be isolated to the 2nd digit on his right foot. We are to follow up on cultures. The patient was instructed on wet to dry dressings by the emergency medicine provider. The patient was given a prescription for Keflex for 1 week by the emergency medicine provider. The patient is to follow up in the orthopedic foot and ankle clinic at [facility] in 5 to 7 days. This plan was discussed with Dr Castellon as well as the emergency department staff. Edson Yanes MD 09 54 PM / Edson Yanes MD ln Confirmation: [id number] Dictation ID: [id number] documented in this encounter Plan of Treatment Not on file documented as of this encounter Procedures Procedure Name Priority Date/Time Associated Diagnosis Comments ANAEROBE CULTURE/SMEAR(INC. AEROBES), TISSUE Routine 03/09/2016 20:40 EST SED RATE STAT 03/09/2016 16:29 EST COMPLETE BLOOD COUNT AND DIFFERENTIAL STAT 03/09/2016 16:29 EST C REACTIVE PROTEIN STAT 03/09/2016 16 :29 EST BASIC METABOLIC PANEL (BMP) STAT 03/09/2016 16:29 EST TOES 2 OR MORE VIEWS STAT 03/09/2016 15:56 EST documented in this encounter Results * ANAEROBE CULTURE/SMEAR(INC. AEROBES), TISSUE (03/09/2016 20:40 EST) Gram Smear Result Mod Polys 03/11/2016 11:39 [facility] Gram Smear Result Mod Gram positive cocci , intraleukocytic organisms seen 03/11/2016 11:39 [facility] Gram Smear Result Few Gram positive bacilli , intraleukocytic organisms seen 03/11/2016 11:39 [facility] Gram Smear Result Results reviewed by supervisory staff 03/11/2016 11:39 [facility] Result Few STAPHYLOCOCCUS AUREUS 03/11/2016 11:39 [facility] Result Few STAPHYLOCOCCUS AUREUS Second strain 03/11/2016 11:39 [facility] Result Few BACTEROIDES FRAGILIS GROUP 03/11/2016 11:39 [facility] Result Few Usual skin martine 03/11/2016 11:39 [facility] Specimen of unknown material (specimen) TISSUE SPECIMEN / Unknown 03/09/2016 20:40 EST 03/09/2016 20:48 EST Comment:Foot~Wound Narrative Organism Antibiotic Method Susceptibility Few staphylococcus aureus Susceptibility comment SUSCEPTIBILITY (RACH) Few staphylococcus aureus Susceptibility comment SUSCEPTIBILITY (RACH) Susceptible to nafcillin, cephalosporins and other beta lactam antibiotics (mecA gene product absent). Few staphylococcus aureus Oxacillin SUSCEPTIBILITY (RACH) <=0.25: Susceptible Few staphylococcus aureus Cefazolin SUSCEPTIBILITY (RACH) Susceptible Few staphylococcus aureus Vancomycin SUSCEPTIBILITY (RACH) 1: Susceptible Few staphylococcus aureus Erythromycin SUSCEPTIBILITY (RACH) 0.5: Susceptible Few staphylococcus aureus Clindamycin SUSCEPTIBILITY (RACH) 0.25: Susceptible Few staphylococcus aureus Ciprofloxacin SUSCEPTIBILITY (RACH) <=0.5: Susceptible Few staphylococcus aureus Tetracycline SUSCEPTIBILITY (RACH) <=1: Susceptible Few staphylococcus aureus Trimethoprim-Sulfamet hoxazole SUSCEPTIBILITY (RACH) <=10: Susceptible Few staphylococcus aureus second strain Susceptibility comment SUSCEPTIBILITY (RACH) Few staphylococcus aureus second strain Susceptibility comment SUSCEPTIBILITY (RACH) Susceptible to nafcillin, cephalosporins and other beta lactam antibiotics (mecA gene product absent). Few staphylococcus aureus second strain Oxacillin SUSCEPTIBILITY (RACH) <=0.25: Susceptible Few staphylococcus aureus second strain Cefazolin SUSCEPTIBILITY (RACH) Susceptible Few staphylococcus aureus second strain Vancomycin SUSCEPTIBILITY (RACH) 1: Susceptible Few staphylococcus aureus second strain Erythromycin SUSCEPTIBILITY (RACH) <=0.25: Susceptible Few staphylococcus aureus second strain Clindamycin SUSCEPTIBILITY (RACH) 0.25: Susceptible Few staphylococcus aureus second strain Ciprofloxacin SUSCEPTIBILITY (RACH) <=0.5: Susceptible Few staphylococcus aureus second strain Tetracycline SUSCEPTIBILITY (RACH) <=1: Susceptible Few staphylococcus aureus second strain Trimethoprim-Sulfamet hoxazole SUSCEPTIBILITY (RACH) <=10: Susceptible us Edson Yanes MD MICROBIOLOGY - GENERAL ORDERABL ES Final Result Performing Organization Address City/[facility]/ZIP Co de Phone Number [facility] [address] [place] [address] * (ABNORMAL) C REACTIVE PROTEIN (03/09/2016 16:29 EST) [facility] C Reactive Protein 11.7(H) <10.0 mg/L 03/09/2016 17:13 EST [facility] Blood specimen (specimen) BLOOD SPECIMEN / Unknown 03/09/2016 16:29 EST 03/09/2016 16:47 EST us Turner Hurtado PA-C CHEMISTRY & BLOOD GAS ORDERAB LES Final Result Performing Organization Address City/[facility]/ZIP Co de Phone Number [facility] [address] [place] [address] * SED. RATE:TEAGAN (03/09/2016 16:29 EST) [facility] Sed. Rate Westergren 14 0 - 20 mm/hr 03/09/2016 17:24 [facility] Blood specimen (specimen) BLOOD SPECIMEN / Unknown 03/09/2016 16:29 EST 03/09/2016 16:47 EST Turner Hurtado PA-C HEMATOLOGY & PF4 ORDERABLES F inal Result [facility] [address] [place] [address] * (ABNORMAL) HEMAGRAM AND DIFFERENTIAL (03/09/2016 16:29 EST) WBC 6.48 4.0 - 10.4 K/cmm 03/09/2016 16:57 [facility] RBC 4.27(L) 4.36 - 5.78 M/cmm 03/09/2016 16:57 [facility] Hemoglobin 13.6(L) 13.8 - 17.3 gm/dl 03/09/2016 16:57 [facility] HCT 39.0(L) 39.5 - 50.2 % 03/09/2016 16:57 [facility] MCV 91 81 - 95 fl 03/09/2016 16:57 [facility] MCH 31.9 27.6 - 33.0 pg 03/09/2016 16:57 [facility] MCHC 34.9 32.8 - 36.4 gm/dl 03/09/2016 16:57 [facility] RDW-CV 12.3 11.8 - 14.1 % 03/09/2016 16:57 [facility] RDW-SD 40.9 36.5 - 45.9 fl 03/09/2016 16:57 [facility] PLT 203 141 - 377 K/cmm 03/09/2016 16:57 [facility] MPV 10.2 9.5 - 12.7 fl 03/09/2016 16:57 [facility] % Neutrophils 64.9 % 03/09/2016 16:57 [facility] % Lymphocytes 24.4 % 03/09/2016 16:57 [facility] % Monocytes 7.3 % 03/09/2016 16:57 [facility] % Eosinophils 2.3 % 03/09/2016 16:57 [facility] % Basophils 0.8 % 03/09/2016 16:57 [facility] % Immature Grans 0.3 % 03/09/2016 16:57 [facility] ABS Neutrophils 4.21 2.20 - 8.85 K/cmm 03/09/2016 16:57 [facility] ABS Lymphs 1.58 1.09 - 3.30 K/cmm 03/09/2016 16:57 [facility] ABS Monocytes 0.47 0.1 - 0.8 K/cmm 03/09/2016 16:57 [facility] ABS Eosinophils 0.15 0.03 - 0.61 K/cmm 03/09/2016 16:57 [facility] ABS Basophils 0.05 0.01 - 0.11 K/cmm 03/09/2016 16:57 [facility] ABS Immature Grans 0.02 0 - 0.06 K/cmm 03/09/2016 16:57 [facility] Type of Diff: Automated 03/09/2016 16:57 [facility] Blood specimen (specimen) BLOOD SPECIMEN / Unknown 03/09/2016 16:29 EST 03/09/2016 16:47 EST Turner Hurtado PA-C PACKAGES & DNA PROBE ORDERABL ES Final Result [facility] [address] [place] [address] * (ABNORMAL) BASIC METABOLIC PANEL (03/09/2016 16:29 EST) Sodium 142 136 - 145 mEq/L 03/09/2016 17:13 [facility] Potassium 4.4 3.5 - 5.0 mEq/L 03/09/2016 17:13 [facility] Chloride 103 96 - 110 mEq/L 03/09/2016 17:13 [facility] CO2 25 22 - 32 mEq/L 03/09/2016 17:13 [facility] Comment:Note new reference r francie 12/21/15 BUN 18 10 - 26 mg/dl 03/09/2016 17:13 [facility] Creatinine 0.72 0.66 - 1.25 mg/dl 03/09/2016 17:13 [facility] GFR, Calculated 106 >60 ml/min/1.7 3m2 03/09/2016 17:13 [facility] Comment: eGFR calculated using CKD-EPI equation for non Americans. Multiply eGFR by 1.16 for Americans. Calcium 9.7 8.5 - 10.5 mg/dl 03/09/2016 17:13 [facility] Calculated Calcium 9.5 8.5 - 10.5 mg/dl 03/09/2016 17:13 [facility] Comment: Note new formula for calculation in use 12/08/2015 Glucose, Serum 233(H) 70 - 100 mg/dl 03/09/2016 17:13 [facility] Fasting? Unknown 03/09/2016 16:47 [facility] Blood specimen (specimen) BLOOD SPECIMEN / Unknown 03/09/2016 16:29 EST 03/09/2016 16:47 EST Turner Hurtado PA-C CHEMISTRY & BLOOD GAS ORDERAB LES Final Result [facility] [address] [place] [address] * TOES 2 OR MORE VIEWS (03/09/2016 15:56 EST) Anatomical Region Laterality Modality Other 03/09/2016 15:5 6 EST 03/09/2016 16:35 EST Narrative 03/09/2016 16:35 EST TOES 2 OR MORE VIEWS ??03/09/2016 3:56 PM Signs and Symptoms/Comments: ?? Generalized swelling, diabetic Comparison: None. Technique and findings: AP and lateral views of the right foot were obtained. There is soft tissue ulceration at the tip of the 2nd toe with diffuse soft tissue swelling. There are erosive changes with near complete osseous destruction of the 2nd distal phalanx, consistent with osteomyelitis. No fracture or malalignment is identified. Impression: Osteomyelitis of the 2nd distal phalanx. I have personally reviewed the images and the above interpretation and agree with the findings. Procedure Note Gurwinder Thomas MD - 03/09/2016 TOES 2 OR MORE VIEWS 03/09/2016 3:56 PM Signs and Symptoms/Comments: Generalized swelling, diabetic Comparison: None. Technique and findings: AP and lateral views of the right foot were obtained. There is soft tissue ulceration at the tip of the 2nd toe with diffuse soft tissue swelling. There are erosive changes with near complete osseous destruction of the 2nd distal phalanx, consistent with osteomyelitis. No fracture or malalignment is identified. Impression: Osteomyelitis of the 2nd distal phalanx. I have personally reviewed the images and the above interpretation and agree with the findings. us Turner Hurtado PA-C IMG DIAGNOSTIC IMAGING ORDERA BLES Final Result documented in this encounter Visit Diagnoses Diagnosis Osteomyelitis of toe ([facility])- Primary Unspecified osteomyelitis, ankle and foot documented in this encounter Administered Medications Inactive Administered Medications - up to 3 most recent administrations Medication Order MAR Action Action Date Dose Rate Site Cephalexin 500 mg Cap STARTER PACK 1 Package, oral, NOW X1, 1 dose, On [place] 03/09/16 at 1945, STAT Given 03/09/2016 20:46 EST 1 Package documented in this encounter Discontinued Medications Medication Sig Discontinue Reason Start Date End Da te cephALEXin (KEFLEX) 500 mg capsule Take 1 Cap by mouth 4 times daily for 7 days. 03/09/2016 03/09/2016 documented as of this encounter Active and Recently Administered Medications Times are shown in EST. Scheduled Medication Order 03/07/2016 03/08/2016 03/09/2016 Cephalexin 500 mg Cap STARTER PACK (COMPLETED) 1 Package, oral, NOW X1, 1 dose, On [place] 03/09/16 at 1945, STAT 2045 (Given - Provid er: Florence Lord RN) documented in this encounter Orders Medications Ordered That Matthew ht Not Have Been Administered Count Last Ordered Date First Ordered Date Cephalexin 500 mg Cap STARTER PACK 1 2016 Nursing Count Last Ordered Date First Orde red Date INSERT PERIPHERAL IV 1 03/09/2016 documented in this encounter Care Teams Brand Planner Relationship Specialty Start Date End Date Jason Batres MD [address] [place] [address] PCP - General 07/27/11 12/31/23 documented as of this encounter
--- OUTSIDE RECORDS SUMMARY | 2024-02-28 16:55 | XMS_ITS | Encounter Summary ---
Author Organization [facility] Address [address] [place] [address] Care Team Providers Care Charge Manager Name Role Phone Jason Batres MD Primary Care Provi margarita Reason for Visit * Reason Comments Diabetes Encounter Details Date Type Department Care Team (Late st Contact Info) Description 12/30/2015 Community Health Team [address] [place] [address] Social History Tobacco Use Types [...] :45 EDT documented as of this encounter Patient Instructions * Patient Instructions* Yael Blackburn RD - 12/30/2015 10:04 EDT Look into clinical provider trainer for bike Balanced meals 3 times each day Include protein, 1 serving fruit, 1 serving of vegetables, whole grains and 1 serving of dairy. Monitor blood glucose twice daily Liang: AM And 2 hours after Breakfast Ailyn: AM and before lunch Sunday: AM and 2 hours after lunch : AM and before dinner Sunday: AM and 2 hours after dinner Sunday: AM and before bed Sunday: AM and 2 hours after Breakfast documented in this encounter Progress Notes * Yael Blackburn RD - 12/30/2015 1004 EDT [facility] DIABETES Diabetes Self-Management Education Note Name:Jeff Scott Today's Date: 12/31/2015 Date of visit: 12/30/2015 PATIENT IDENTIFICATION: Jeff Scott is a 55 y.o. male referred for diabetes self-management education by Dr. Batres for medical nutrition therapy for type 2 diabetes diet education. SUBJECTIVE: Jeff Scott was seen for a diabetes self-management education visit at the [facility] out[facility]patient clinic on 12/30/2015 accompanied by: alone Pt states that he is home all day and so has time to focus on healthy eating. Pt states initially that he has to think before answering questions and it might take him longer due to brain surgery. Ptstates that he can become emotional. Pt reports that he needs to have hip replacement surgery but surgeon will not schedule until he is able to improve his HGB a1c. OBJECTIVE: Diabetes type: Type 2 Vitals: There were no vitals taken for this visit. BMI: There is no height or weight on file to calculate BMI. Laboratory Results: Lab Results Component Value Date HGBA1C 10.3 11/26/2015 HGBA1C 10.5 (A) 11/26/2015 DIABETES MEDICATIONS: Current AntiDiabetic Medications 12/29/2014 02/22/2015 glimepiride (oral) 2 MG BID 2 MG BID metFORMIN (oral) 1,000 MG BID (BREAKFAST/DINNER) 1,000 MG BID DIABETES MEAL PLANNING: Type of meal planning: Consistent Carbohydrate Consistent carbohydrate meal plan target: 45-60 grams/meal Follows meal plan: 25% to 50% of the time PRESENT MEAL PATTERN: Current eating habits:large meals and high in simple carbohydrates. Breakfast: cheerios (1.5 cups) with milk (4-5 oz) Lunch: peanut butter and jelly sandwich on whole wheat bread or swetha chips with salsa Dinner: Beef stew homemade Snacks: fruits Beverages: water most of the time will sometimes have soda Alcohol: none reported Comments: Pt reports that when he travels he eats more unhealthy foods including fast food, sweets and drinks more soda. Pt states that he recently returned from [place] and reports that he will be leaving for the start of hunting season in mid-January. PHYSICAL ACTIVITY: Type of exercise: walking and biking Frequency per week: Not regularly but these are the exercises he will do when able. Duration in minutes: No time specified. BLOOD GLUCOSE MONITORING: Glucose monitoring: BID. Barriers to monitoring: None Home Blood Glucoses Running: patient forgot to bring HBG readings HYPOGLYCEMIA MANAGEMENT: Hypoglycemic event: Patient is carrying a source of rapid acting CHO: none Patient has a current supply of glucagon? No Patient is wearing Medic Alert: No STRESS MANAGEMENT/COPING: Pt with history of brain surgery that has changed his lifestyle. During visit pt expresses increaseemotions and becomes emotional while talking about his family. Pt appears to be struggling with stress management and coping and could benefit from working with Odette Hector Iron Miner to identify an appropriate community therapist or to establish some healthy stress management techniques. ASSESSMENT: Learning readiness: Verbalizes interest, Active attentive participant, Cognitive impairment and Financial Patient is receptive to education. Psychosocial, cultural, or economic barriers to care:low income. DIABETES SELF-MANAGEMENT EDUCATION: During this session we addressed the following topics: DIABETES EDUCATION MATERIALS PROVIDED: The following patient education materials were provided at today's visit. Meal planning with diabetes DIABETES SELF-MANAGEMENT PLAN: Patient Identified Goals: Improve glycemic control by modifying diet and increasing physical activity. Patients Plan: Look into purchasing a clinical provider trainer for bike to increase physical activity Practice healthy eating when away from home provided pt with ideas for making healthy suggestions when eating out Increase intake of vegetables to include at least one serving at lunch and dinner Meet with [facility] social work Additional information for providers: Referred pt to [facility] Social work for stress management and possible connection with community therapist. Pt did not bring blood glucose logs to visit but reported fasting blood glucose between 115-130 and pre dinner blood glucose between 115-119. This is not consistent with most recent hemoglobin a1c. Encouraged pt to take blood glucose readings at varying times so we can gather a better picture of what is occurring. Scheduled follow up for 1 month and asked pt to bring blood glucose log or meter for review. FOLLOW UP: Dr. Batres Total Time: 90 minutes Referral: [facility] Social work Admin team please call pt to arrange for the appointment Follow up: Date: February Time: 1 PM With: Linda Dudley Dietitifredy Location: Dr. Batres Status: Active Thank you for your kind referral of Jeff Scott for diabetes self-management education. Time Spent With Patient: 1.[address] 12/31/2015 12:49 documented in this encounter Plan of Treatment Not on file documented as of this encounter Visit Diagnoses Not on filedocumented in this encounter Care Teams Charge Manager Relationship Specialty Start Date End Date Jason Batres MD [address] [place] [address] PCP - General 07/27/11 12/31/23 documented as of this encounter
--- OUTSIDE RECORDS SUMMARY | 2024-02-28 16:55 | XMS_ITS | Encounter Summary ---
Author Organization [facility] Address [address] [place] [address] Care Team Providers Care Street Vendor Name Role Phone Jason Batres MD Primary Care Provi margarita Encounter Details Date Type Department Care Team (Latest Contact Info) Description 12/29/2014 10:08 EDT - 12/29/2014 23:59 EDT Hospital Encounter [facility] [address] [place] [address] Unknown, Provider, MD Jones, Catalino Deleon MD Discharge Disposition: Auto Discharge Social History Tobacco [...] as of this encounter Discharge Diagnoses Diagnosis M25.559 Pain in unspecified hip-M25.559[ICD-10-CM] M16.9 Osteoarthritis of hip, unspecified-M16.9[ICD-10-CM] E11.9 Type 2 diabetes mellitus without complications-E11.9[ICD-10-CM] documented in this encounter Medications at Time [...] Disposition Code Departure Means Destination Auto Discharge Home documented in this encounter Plan of Treatment Not on file documented as of this encounter Procedures Procedure Name Priority Date/Time Associated Diagnosis Comments PREPARE RED BLOOD CELLS Routine 12/29/2014 13:56 EDT PREPARE RED BLOOD CELLS Routine 12/29/2014 13:56 EDT TYPE AND SCREEN Routine 12/29/2014 13:55 EDT documented in this encounter Results * PREPARE RED BLOOD CELLS (12/29/2014 13:56 EDT) Product Code [id number] [facility] Comment:E0336 -1 RED BLOOD CELLS, Leukocytes Reduced Donor Number [id number] U [facility] Unit ABO A [facility] Rh POS [facility] Unit Status RE^Released From Crossmatch [facility] Product Expiration Date [id number] [facility] Unit Blood Type Code 6200 [facility] Coding System [id number] [facility] 12/29/2014 13:5 6 EDT Catalino Jones MD BLOOD BANK ORDERABLES Final Result [facility] [address] [place] [address] * PREPARE RED BLOOD CELLS (12/29/2014 13:56 EDT) Product Code [id number] [facility] Comment:E0336 -1 RED BLOOD CELLS, Leukocytes Reduced Donor Number [id number] U [facility] Unit ABO A [facility] Unit Rh POS [facility] Unit Status RE^Released From [employer]match [facility] Product Expiration Date [id number] [facility] Unit Blood Type Code 6200 [facility] Coding System [id number] [facility] 12/29/2014 13:5 6 EDT us Catalino Jones MD BLOOD BANK ORDERABLES Final Result [facility] [address] [place], [place] [id number] * TYPE AND SCREEN (12/29/2014 13:55 EDT) ABO A [facility] Rh Factor Positive [facility] Antibody Screen Negative [facility] Specimen Expires: 01/22/2015 @ 23:59 [facility] 12/29/2014 13:5 5 EDT us Catalino Jones MD BLOOD BANK TESTS Final Result [facility] [address] [place] [address] documented in this encounter Visit Diagnoses Not on filedocumented in this encounter Care Teams Street Vendor Relationship Specialty Start Date End Date Jason Batres MD [address] [place] [id number] PCP - General 07/27/11 12/31/23 documented as of this encounter
--- OUTSIDE RECORDS SUMMARY | 2024-02-28 16:55 | XMS_ITS | Encounter Summary ---
Author Organization [facility] Address [address] [place] [address] Care Team Providers Care Window Shade Installer Name Role Phone Jason Batres MD Primary Care Provi margarita Reason for Visit * Reason Comments Community Health Team Encounter Details Date Type Department Care Team (Late st Contact Info) Description 02/01/2016 Community Health Team Jason Batres MD, [facility] [address] [place], [place] [address] Odette Hector LICSW [address] [place] [address] Social History Tobacco Use Types Packs/Day Years [...] Progress Notes * Odette Hector LICSW - 02/01/2016 1964 EST Jeff did not show for his initial SW appointment. Phoned and LVM inviting him to call [phone] if [address]cheduling[address] Dr[address] Batres Total Time: 5min JG Ray documented in this encounter Plan of Treatment Not on file documented as of this encounter Visit Diagnoses Not on filedocumented in this encounter Care Teams Window Shade Installer Relationship Specialty Start Date End Date Jason Batres MD [address] [place] [address] PCP - General 07/27/11 12/31/23 documented as of this encounter
--- OUTSIDE RECORDS SUMMARY | 2024-02-28 16:55 | XMS_ITS | Encounter Summary ---
Author Organization [facility] Address [address] [place] [address] Care Team Providers Care Delinquent Notice Machine Operator Name Role Phone Jason Batres MD Primary Care Provi margarita Encounter Details Date Type Department Care Team (Late st Contact Info) Description 02/17/2016 12:59 EST - 02/17/2016 13:00 EST Hospital Encounter [facility] - [address] [address] Jason Batres MD [address] [place] [phone] Discharge Disposition: Home or Self Care Social [...] on filedocumented in this encounter Care Teams Delinquent Notice Machine Operator Relationship Specialty Start Date End Date Jason Batres MD [address] [place] [id number] PCP - General 07/27/11 12/31/23 documented as of this encounter
--- OUTSIDE RECORDS SUMMARY | 2024-02-28 16:55 | XMS_ITS | Encounter Summary ---
Author Organization [facility] Address [address] [place] [address] Care Team Providers Care Brass Wind Instrument Maker Name Role Phone Jason Batres MD Primary Care Provi margarita Reason for Referral * Consult (Routine) - Closed Specialty Diagnoses / Procedures [facility] Referred To Contact Orthopedic Surgery Diagnoses Hip pain Jason Batres MD Phone: tel: fax: Catalino Jones MD Referral ID Status Reason Start Date Expiration Date V isits Requested Visits Authorized [id number] Closed Specialty Services Required 06/18/2014 1 1 Question Answer Reason for Request: left hip pain - saw ortho 01/15 - conservative management has not worked - patient interested in surgical options. Comments Patients brother had THR with Dr. Jones and he would like to see Dr. Jones. He has had initial visit with Woody Swanson Reason for Visit * Reason Comments Diabetes Encounter Details Date Type Department Care Team (Late st Contact Info) Description 06/17/2014 10:30 EDT Office Visit Jason Batres MD, PC [address], [place] [id number] Jason Batres MD [address] [place] [address] [phone] Diabetes mellitus type II, controlled ([facility]) ([facility]) (Primary Dx); Hip pain Social History Tobacco Use Types Packs/Day Years [...] Sign Reading Time Taken Comments Blood Pressure 126/76 06/17/2014 1027 EDT Pulse 97 06/17/2014 1027 EDT Temperature 36.7 ??C (98.1 ??F) 06/17/2014 1027 EDT Respiratory Rate - - Oxygen Saturation - - Inhaled Oxygen Concentration - - Weight 116.6 kg (257 lb) 06/17/2014 1027 EDT Height - - Body Mass Index 33 11/11/2013 1040 EDT documented in this encounter Patient Instructions * Patient Instructions* Jason Batres MD - 06/17/2014 10:41 EDT 1. More vegetables, minimize fruit and carbohydrates, moderate amount of protein is OK (peanut butter, lean meat- chicken, fish, pork) 2. No limitations on carrots. Green vegetables are OK, Decrease potatoes. 3. I do not want to give you a specific restricted diet. It is better to work on healthy choices ingeneral but I know there will be days where you Cheat- this is OK. 4. Your A1C has dropped from 12.0 to 8.2. This is a great job! The goal is under 7.0 and you are almost there. Keep it up! documented in this encounter Ordered Prescriptions Prescription Sig Dispense Quantity Refills Last Filled Start Date End Date glimepiride (AMARYL) 2 mg tablet Take 1 Tab by mouth 2 times daily 180 Tab 3 06/18/2014 03/10/2016 documented in this encounter Progress Notes * Jason Batres MD - 06/18/2014 1011 EDT Subjective: Patient ID: Jeff Scott is an 53 y.o. male. No chief complaint on file. HPI Jeff is here to follow-up on his diabetes. He is by himself which does make the visit difficult given his memory. We wrote things down and he took notes during the visit. He says he is working hard on his diet. He will have a healthy cereal in the AM instead of a sugar sweetened cereal. If he has eggs and toast he will have one slice of toast instead of 4. He is trying not to have sandwiches at l unch but he does like chips. At night, he tries to avoid bread. Hiw wants to know specificallywhat he can eat but we discussed some more general things - more vegetables, some fruits, less carbs, protein is OK. He showed me his FS which lately have been excellent. His mornings are now running 110-130 and in the evening he is around 150-180. He has not had a reading over 200 for over a month.We reviewed how he is taking his medications. He is out of the glimeperide early because he is doubling it which was suggested by his mold finisher in [facility]. He also complains of hip pain and it is very limiting. He has seen ortho before and they discussed possible surgery if it was not improving with conservative care and it is not getting better so he would like to pursue this. His brother had a hip replacement and is 4 years younger. He had it with Dr. Jones and he would like to see him as well. It is keeping him from being active and he is not able to walk because of the hip pain. Social Current Outpatient Prescriptions on File Prior to Visit Medication Sig Dispense Refill ??? blood glucose (FREESTYLE TEST) test strips 1 Strip by misc (non-drug; combo route) route 2 times daily 100 Each 1 ??? blood glucose meter (FREESTYLE FREEDOM LITE) Test FS BID. 1 Each 0 ??? glimepiride (AMARYL) 2 mg tablet Take 1 Tab by mouth daily. 60 Tab 3 ??? lancets Test BID. 100 Each 1 ??? levothyroxine (SYNTHROID) 112 mcg tablet Take 112 mcg by mouth daily. ??? metFORMIN (GLUCOPHAGE) 1,000 mg tablet Take 1 Tab by mouth 2 times daily with breakfast and dinner. 60 Tab 3 No current facility-administered medications on file prior to visit. No Known Allergies Review of Systems Musculoskeletal: Positive for joint pain (hip). - See HPI Objective: BP 126/76 Pulse 97 Temp(Src) 36.7 ??C (98.1 ??F) (Tympanic) Wt 116.574 kg (257 lb) Physical Exam Constitutional: He is oriented to [...] Assessment: Plan: Jeff was seen today for no specified reason. Diagnoses and associated orders for this visit: Diabetes mellitus type II A1C is down from 12.0 to 8.2 which is a great improvement And based on his recent numbers I think he will be even better at the next visit Discussed diet today and gave some tips He has [facility] with [facility] before but it is hard for him to remember I called in an increased dose of his sulfonylurea to the pharmacy Hip pain Continue ibuprofen Will consult ortho and see if he can see the surgeon directly as at his last ortho visit in January 2013 they discussed that this would be the next step follow up in three months Jason Batres MD * Makeda Rosen RN - 06/12/2014 1602 EDT Health Maintenance Topic Date Due ??? [...] Associated Diagnoses Order Schedule AMB CONS/FOLLOW UP ORTHOPEDICS Outpatient Referral Routine Hip pain Ordered: 06/18/2014 documented as of this encounter Procedures Procedure Name Priority Date/Time Associated Diagnosis Comments POCT HEMOGLOBIN A1C Routine 06/18/2014 1 0:39 EDT Diabetes mellitus type II, controlled ([facility]) ([facility]) documented in this encounter Results * (ABNORMAL) POCT HEMOGLOBIN A1C (06/18/2014 10:39 EDT) Hemoglobin A1c, POC 8.2(A) <=5.7 POINT OF CARE 06/18/2014 10:3 9 EDT Jason Batres MD POINT OF CARE TEST ORDERABLES Final Result POINT OF CARE documented in this encounter Visit Diagnoses Diagnosis Diabetes mellitus type II, controlled ([facility])- Primary Type II or unspecified type diabetes mellitus without mention of complication, not stated as uncontrolled Hip pain Pain in joint, pelvic region and thigh documented in this encounter Discontinued Medications Medication Sig Discontinue Reason Start Date End Da te acetaminophen (ARTHRITIS PAIN RELIEF, ACETAM,) 650 mg CR tablet Take 1,300 mg by mouth every 8 hours. 06/17/2014 glimepiride (AMARYL) 2 mg tablet Take 1 Tab by mouth daily. Reorder 03/24/2014 06/18/2014 documented as of this encounter Historical Medications * This list may reflect changes made after this encounter. ibuprofen (MOTRIN) 200 mg tablet Take 800 mg by mouth daily. 09/21/2020 added in this encounter Care Teams Brass Wind Instrument Maker Relationship Specialty Start Date End Date Jason Batres MD [address] [place] [id number] PCP - General 07/27/11 12/31/23 documented as of this encounter
--- OUTSIDE RECORDS SUMMARY | 2024-02-28 16:56 | XMS_ITS | Encounter Summary ---
Author Organization [facility] Address [address] [place] [address] Care Team Providers Care Electrical Equipment Technician Name Role Phone Unknown, Provider MD Primary Care Provider Unava ilable Reason for Visit * Reason Onset Date Comments Appointment Related 07/26/2011 Encounter Details Date Type Department Care Team (Late st Contact Info) Description 07/26/2011 Telephone [facility] Rehabilitation Therapy [address] [address] Sandi Otto, SANITARY ENGINEER [address] [place] [address] Appointment Related Social History Tobacco Use Types [...] Miscellaneous Notes * Telephone Encounter - Sandi Otto - 07/26/2011 1627 EDT Left message at home for patient w/ info as in previous note for Voc Rehab. * Telephone Encounter - Snadi Otto - 07/26/[address] Camargo referred Jeff to Voc Rehab from today's visit. They advised that patient needs to go to their office ([address] [place] [address] [address], [place]) to fill out paperwork and can meet with a counselor on 08/01 or 08/08 from -; he can park in the public parking garage for the first 2 hrs for free. Phone # [phone], office open M-F, [phone] if patient would like to call altho initial process isn't done over the phone. documented in this encounter Plan of Treatment Not on file documented as of this encounter Visit Diagnoses Not on filedocumented in this encounter Care Teams Electrical Equipment Technician Relationship Specialty Start Date End Date Unknown, Provider, PCP - General 05/25/11 07/26/11 documented as of this encounter
--- OUTSIDE RECORDS SUMMARY | 2024-02-28 16:56 | XMS_ITS | Encounter Summary ---
Author Organization [facility] Address [address] [place] [address] Care Team Providers Care Hvac Mechanical Engineer Name Role Phone Jason Batres MD Primary Care Provi margarita Encounter Details Date Type Department Care Team (Late st Contact Info) Description 05/12/2008 Before PRISM Converted Visit (Maple) [facility] - Maple conversion [address] [place] [address] Jeff Camargo MD [address] [place] [id number] Social History Tobacco Use Types Packs/Day Years Used Date Smoking Tobacco: Never Assessed Sex and Gender Information Value Date Recorded Sex Assigned at Male 06/12/2023 11:45 EDT Legal Sex Male 18:05 EST Gender Identity Male 10/03/2019 21:06 EDT Sexual Orientation Straight 06/12/2023 11 :45 EDT documented as of this encounter Progress Notes * Jeff Camargo MD - 04/07/2009 0849 EST PHYSICAL MEDICINE / REHABILITATION PROGRESS/FOLLOWUP NOTE - 05/12/2008 OUTPATIENT FOLLOW-UP CLINIC DATE OF SERVICE: 05/12/2008 ATTENDING PHYSICIAN: Jeff Camargo MD PRIMARY CARE PHYSICIAN: Jason Batres MD REASON FOR FOLLOW UP 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 CHIEF COMPLAINT Double vision. HISTORY OF PRESENT ILLNESS Mr Scott is a pleasant gentleman with a history of craniopharyngioma resection around a year and 8 months ago. He has continued to have some high level executive cognitive dysfunction, lack of initiation. He has also had persistence of diplopia. He has been on Ritalin to increase daytime alertness and initiation which has been somewhat helpful. I most recently referred him to [facility] for full evaluation to try and assess his ability to get backto work capacity. Some hip and back pain issues were addressed with them. Also occupational therapist Ramandeep Hardy felt that at this point it would be worthwhile for Mr Scott to get into doing somevolunteer work initially and then look at perhaps getting back to an employment status. 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 He continues to wear temporary prism glasses which he reports are helpful but he still finds somewhat annoying as they are relatively low quality glasses. He does report that they do help correct hisvision. We had some discussions about whether or not another followup with ophthalmology would be worthwhile to discuss the possibility of a muscle procedure for his eye to try and fix the dysconjugate gaze. As he is approaching two years out in the next few months, I wouldnnecessarily expect thereto be dramatic improvement in the eye at this point. Perhaps ophthalmology would have a different opinion in that matter, of course, deferring to them. Mr Scott was accompanied by his today. She continues to express some frustration about his lack of follow through with activities. He has made a couple of phone calls for volunteer work and hasnheard back from anybody yet. He has not called again to check on it. MEDICATIONS Current dose of Ritalin is not associated with any side effects. He is taking 30 mg daily. He also remains on Synthroid, Advil, and Tylenol as necessary. PHYSICAL EXAMINATION On exam, he continues to have significantly dysconjugate gaze and diplopia. Based on my exam, it seems like the right eye is deviated downward and laterally. As above, he does correct with prism glasses. Nofocal strength deficits, balance deficits, or sensory deficits were noted. SUMMARY In summary, Mr Scott is a year and several months out from craniopharyngioma resection with resulting executive cognitive dysfunction and diplopia. He certainly seems physically able to get back to some employment capacity within the next few months. His cognitive issues are the one thing of concern in regard to safety and ability to follow through with requirements. I am in agreement with the suggestion of him gettingback to some volunteer work first to see how he tolerates a work schedule without the stress of being officially employed. After a period of time doing that, if he is able to follow through consistently, we will discuss more thoroughly vocational rehab versus simply looking for a job that he thinks he can do. RECOMMENDATIONS In regard to his ongoing diplopia, I recommend that he followup with ophthalmology either for further discussions about possible muscle procedure or getting him more definitive prismglasses that he finds more tolerable. I will followup with him again in a couple of months to reevaluate him. I did fill out some disability paperwork from [employer] today. I spent 15 minutes with Mr Scott and his . Entire time face to face, the vast majority on counseling and coordination of care. Signed by Jeff Camargo MD 05/15/2008 16:27 Jeff Camargo MD - Jeff Camargo MD - Job ID: [id number] Doc ID: [id number] cc: Jason Batres MD documented in this encounter Plan of Treatment Not on file documented as of this encounter Visit Diagnoses Not on filedocumented in this encounter Care Teams Hvac Mechanical Engineer Relationship Specialty Start Date End Date Jason Batres MD [address] [place] [address] [phone] PCP - General 08/13/08 05/24/11 documented as of this encounter
--- OUTSIDE RECORDS SUMMARY | 2024-02-28 16:56 | XMS_ITS | Encounter Summary ---
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 You have to call yourself. Open 8-4:30 Sunday through Sunday. documented in this encounter Discharge Disposition Disposition Code Departure Means Destination Auto Discharge documented in this encounter Progress Notes * Jeff Camargo MD - 09/26/2011 1436 EDT . Jeff Scott is a 50-year-old gentleman who is a few years out from craniopharyngioma resection, which resulted in some high level executive cognitive dysfunction as well as visual disturbances. He underwent corrective eye surgery, which has improved his diplopia significantly and he has been able to get back to driving. We have been working on getting him back into vocational rehabilitation services and in preparation for that he has received a neuropsychological assessment by Sebastian Sheehan. I will put the summary of Dr Sheehan's report in this note to clarify deficits. In simplest terms Dr Sheehan found that Jeff has moderate declines in cerebral function with the biggest difficulties being mental processing speed, overall verbal skills and free recall memory. The thoughts were that Jeff could return to work, but it would require him doing a job that was not cognitively demanding, was highly structured and well supervised. Jeff reports that he found the testing situation to be fairly stressful and challenging. We reviewed this in some detail. We discussed goals of vocational rehabilitation services and his need to initiate this on his own. We gave him all of the information, phone number and hours of the voc. rehab office for Jeff to follow through with this on his own. Recognizing his deficits with memory, he asked if we could write all this down for him, which we did. We did not review medications in much detail today. However, we may consider putting him back on anantidepressant medication at some point, not necessarily for mood stabilization, but also to try and help with his cognitive function. We will review that at a later date. OBJECTIVE: On examination, Jeff was pleasant and cooperative. However, in the context of discussing his neuro psych assessment and recommendations he did get a little frustrated and tearful about his situation. He has no focal motor deficits, with the exception of still some eye gaze disconjugate. IMPRESSION: Status post frontal craniopharyngioma resection with ongoing cognitive impairments as mentioned in Dr Sheehan's report. Follow through with referral for vocational rehabilitation services.Depending on the status of that, I may look to add in a SSRI versus neuro stimulant to see if that aids in the return to work process. I will see him back in a couple of months. Addendum: NeurospychTesting Summary: SUMMARY AND IMPRESSION: Mr Jeff Scott is a 50-year-old, right-handed, man with 13 years ofeducation. He is five years status post craniotomy and [place] [facility] He now is apparently neurologically stable and has had a reasonably good physical recovery. However, he continues to experience residual cognitive deficits and related behavioral and emotional changes, which have jointly limited his independent daily functioning, including returning to work. He was seen for neuropsychological testing to document his current level of cognitive functioningand to assist in his ongoing treatment planning. The current evaluation finds Mr Scott to be functioning in the low average range intellectually andthe borderline to average ranges across the balance of tested neuropsychological functions. Areas of relative strength identified upon testing include basic orientation, attention (working memory), and spatial organization and recognition memory. Areas of relative weakness noted are mental processing speed, overall verbal skills, and free recall memory. Psychologically, he presents with problems with initiation and labile affect, but there is no evidence of significant current depression, anxiety, or coping problems. The overall configuration of test findings is consistent with moderate declines in cerebral function, presumably due to his brain neoplasm and resection. It appears that most of Mr Scott's cognitive deficits and behavioral issues are associated with frontal-temporal functions. Skills typically associated with right and left hemispheric functions appear to be equivalently involved, that is, there is no evidence of a strong lateralizing effect. At five years post- surgery, it is safe to assume that Mr Scott is stable and that his deficits at this point are fixed and permanent. Mr Scott has been out of work since 2006. Although it is not inconceivable that he could return to some form of work, his problems with learning and memory, and is low initiation would make it a challenging venture. It would require a job that was not cognitively demanding and the work setting thatwas highly structured and well-supervised. I believe he has been referred to Vocational Rehabilitation already to start investigating his employment options. Mr Scott has apparently been on an antidepressant in the past, although I do not know the specifics. He does not appear to be frankly depressed, but he would still benefit from an SSRI-class medication for his labile affect. 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
--- OUTSIDE RECORDS SUMMARY | 2024-02-28 16:56 | XMS_ITS | Encounter Summary ---
Author Organization [facility] Address [address] [place] [address] Care Team Providers Care Landscape Designer Name Role Phone Jason Batres MD Primary Care Provi margarita Encounter Details Date Type Department Care Team (Late st Contact Info) Description 08/26/2007 Before PRISM Converted Visit (Maple) [facility] - Maple conversion [address] [place] [address] Jeff Camargo MD [address] [place] [id number] Social History Tobacco Use Types Packs/Day Years Used Date Smoking Tobacco: Never Assessed Sex and Gender Information Value Date Recorded Sex Assigned at Male 06/12/2023 11:45 EDT Legal Sex Male 18:05 EST Gender Identity Male 10/03/2019 21:06 EDT Sexual Orientation Straight 06/12/2023 11 :45 EDT documented as of this encounter Progress Notes * Jeff Camargo MD - 12/04/2008 1133 EDT PHYSICAL MEDICINE / REHABILITATION PROGRESS/FOLLOWUP NOTE - 08/26/2007 OUTPATIENT FOLLOW-UP CLINIC DATE OF SERVICE: 08/26/2007 ATTENDING PHYSICIAN: Jeff Camargo MD PRIMARY CARE PHYSICIAN: Jason Batres MD REASON FOR EVALUATION/FOLLOW UP 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 HISTORY OF PRESENT ILLNESS Jeff is a 46-year-old gentleman who returns for followup today. As above, he has history of craniopharyngioma that was resected back in September of 2006. 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 He also continues to have ongoing cognitive and executive function deficits. He has been getting treated for hypothyroidism. Labs here at [facility] back in April were normal in regard to his thyroid functions. However, his physician down at [facility] recently increased his Synthroid, indicating that perhaps he was not yet euthyroid. We had discussed the possibility if initiating a neurostimulant to try and improve attention and focus, as well as initiation. I wanted to wait until his thyroid functions were under control before considering that. He and his present today with similar descriptions of the same types of lack of initiation problems that he had last visit. His reports that perhaps he is a little bit better in following through with tasks once they are finally initiated. He continues to need significant ongoing proddingto get started with any type of activity. Jeff continues to complain in particular about his visual disturbances. In particular, he has continued diplopia without his prism glasses. He reports that his glasses are perhaps a little too small and when he looks under the lenses, he has diplopia. We discussed possibly getting larger lenses in their overall surface area to improve his tracking in allfields without losing the prism effect. He also reports difficulty with rapid accommodation from distance to near vision. He does not seem to have the same insight into his functional deficits as his does. He does generally concur with her, however, when she brings up an issue. MEDICATIONS Medications were reviewed. Synthroid was increased from 75 mcg to 88 mcg. He is stillon Effexor 75 mg daily. We discussed possible medication changes in that regard. It is not clear whether or not another antidepressant medication would be anymore useful for Jeff than the Effexor is. PHYSICAL EXAMINATION On examination, he continues to have significant diplopia and disconjugate gaze. He has grossly normal motor function throughout. His speech was clear. His affect was bright. SUMMARY Jeff is a 46-year-old gentleman with craniopharyngioma resection. He still has high level functional deficits in regard to lack of initiation and focus. Again, I need to clarify whether or not his thyroid functions are under control before consideration of any neurostimulant. We did review Ritalina little bit today. It is not clear to me at all that switching him from Effexor to another antidepr essant or other SSRI will be helpful for him. I will review this with my colleague, Dr. [place] to see if he has any particular thoughts. He knows Mr. Scott pretty well from prolonged inpatient stay. I will followup with Mr. Scott some time in the next couple months. I will get copies of his thyroid function testing from [facility] and we may consider initiating a drug trial before his next visit. Twenty-five minutes was spent with Mr. Scott and his today. The entire time in [id number] contact, the majority of which was spent on counseling. Signed by Jeff Camargo MD 09/02/2007 14:26 Jeff Camargo MD - Jeff Camargo MD - Job ID: [id number] Doc ID: [id number] cc: Jason Batres MD documented in this encounter Plan of Treatment Not on file documented as of this encounter Visit Diagnoses Not on filedocumented in this encounter Care Teams Landscape Designer Relationship Specialty Start Date End Date Jason Batres MD [address] [place] [phone] PCP - General 08/13/08 05/24/11 documented as of this encounter
--- OUTSIDE RECORDS SUMMARY | 2024-02-28 16:56 | XMS_ITS | Encounter Summary ---
Author Organization [facility] Address [address] [place] [address] Care Team Providers Care Story Editor Name Role Phone Unavailable Primary Care Provider Unavailabl e Encounter Details Date Type Department Care Team (Late st Contact Info) Description 11/29/2007 9:43 EDT Hospital Encounter [facility] [place] [address] [place] [address] Rebeka Costello MD [address] [place] [address] [address] [place] [phone] Social History Tobacco Use Types Packs/Day Years [...] 15:31 EDT documented as of this encounter Plan [...]
--- OUTSIDE RECORDS SUMMARY | 2024-02-28 16:56 | XMS_ITS | Encounter Summary ---
Author Organization [facility] Address [address] [place] [address] Care Team Providers Care Flux Plant Operator Name Role Phone Jason Batres MD Primary Care Provi margarita Encounter Details Date Type Department Care Team (Late st Contact Info) Description 02/25/2013 Phlebotomy Only [address] [address] Care Companion, Outpatient Social History Tobacco Use Types Packs/Day Years [...] on filedocumented in this encounter Care Teams Flux Plant Operator Relationship Specialty Start Date End Date Jason Batres MD [address] [place] [address] PCP - General 07/27/11 12/31/23 documented as of this encounter
--- OUTSIDE RECORDS SUMMARY | 2024-02-28 16:56 | XMS_ITS | Encounter Summary ---
Author Organization [facility] Address [address] [place] [address] Care Team Providers Care Belt Loop Maker Name Role Phone Unavailable Primary Care Provider Unavailabl e Encounter Details Date Type Department Care Team (Late st Contact Info) Description 02/05/2007 13:37 EST - 03/04/2007 11:59 EST Hospital Encounter [facility] - Other [address] [place] [phone] Jason Batres MD [address] [place] [phone] Discharge Disposition: Auto Discharge Social History Tobacco Use Types Packs/Day Years Used Date Smoking Tobacco: Never Assessed Sex and Gender Information Value Date Recorded Sex Assigned at Male 06/12/2023 11:45 EDT Legal Sex Male 18:05 EST Gender Identity Male 10/03/2019 21:06 EDT Sexual Orientation Straight 06/12/2023 11 :45 EDT documented as of this encounter Discharge Disposition Disposition Code Departure Means Destination Auto Discharge documented in this encounter Plan of Treatment Not on file documented as of this encounter Visit Diagnoses Not on filedocumented in this encounter
--- OUTSIDE RECORDS SUMMARY | 2024-02-28 16:56 | XMS_ITS | Encounter Summary ---
Author Organization [facility] Address [address] [place] [address] Care Team Providers Care Mechanical Engineering Draftsperson Name Role Phone Jason Batres MD Primary Care Provi margarita Reason for Visit * Reason Comments Diabetes Encounter Details Date Type Department Care Team (Late st Contact Info) Description 12/03/2013 Community Health Team [address], [address] [place] [address] Debby Sotomayor, RN [address] [place] [address] Social History Tobacco Use Types Packs/Day Years [...] as of this encounter Progress Notes * Debby Sotomayor, RN - 12/03/2013 1102 EDT Community Health Team RN has attempted to contact patient to make a follow up appointment for diabetes education. Messages left, no response. Will make him inactive with [facility] at this time. He is welcome to be reconnected with us at any time. Total Time: 5 minutes / phone Referrals: none Follow-Up: none Status: INACTIVE documented in this encounter Plan of Treatment Not on file documented as of this encounter Visit Diagnoses Not on filedocumented in this encounter Care Teams Mechanical Engineering Draftsperson Relationship Specialty Start Date End Date Jason Batres MD [address] [place] [address] PCP - General 07/27/11 12/31/23 documented as of this encounter
--- OUTSIDE RECORDS SUMMARY | 2024-02-28 16:56 | XMS_ITS | Encounter Summary ---
Author Organization [facility] Address [address] [place] [address] Care Team Providers Care Bisque Tile Burner Name Role Phone Jason Batres MD Primary Care Provi margarita Encounter Details Date Type Department Care Team (Late st Contact Info) Description 09/19/2010 Abstract Jason Batres MD, PC [address] [place], [place] [phone] Jason Batres MD [address] [place] [address] Social History Tobacco Use Types Packs/Day [...] Diagnoses Not on filedocumented in this encounter Historical Medications * This list may reflect changes made after this encounter. venlafaxine (EFFEXOR XR) 75 mg XR capsule Take 75 mg by mouth daily. 05/26/2011 added in this encounter Care Teams Bisque Tile Burner Relationship Specialty Start Date End Date Jason Batres MD [address] [place] [phone] PCP - General 08/13/08 05/24/11 documented as of this encounter
--- OUTSIDE RECORDS SUMMARY | 2024-02-28 16:56 | XMS_ITS | Encounter Summary ---
Author Organization [facility] Address [address] [place] [address] Care Team Providers Care Electrical Prospecting Engineer Name Role Phone Unavailable Primary Care Provider Unavailabl e Encounter Details Date Type Department Care Team (Latest Contact Info) Description 04/23/2007 15:55 EST Hospital Encounter [facility] [address] [place] [address] Jeff Camargo MD [address] [place] [address] Discharge Disposition: Auto Discharge Social History Tobacco [...]
--- OUTSIDE RECORDS SUMMARY | 2024-02-28 16:56 | XMS_ITS | Encounter Summary ---
Author Organization [facility] Address [address] [place] [address] Care Team Providers Care Tax Professional Name Role Phone Jason Batres MD Primary Care Provi margarita Reason for Visit * Reason Comments Community Health Team Encounter Details Date Type Department Care Team (Late st Contact Info) Description 09/30/2013 Community Health Team [address], [address] [place] [address] Debby Sotomayor, RN [address] [place] [address] Social History Tobacco Use Types Packs/Day Years [...] of this encounter Progress Notes * Debby Sotomayor RN - 09/30/2013 9928 EDT Patient did not show up for scheduled appointment with Community Health Team RN on 09/30/13. RN called and left voice message. [facility] admin team pls follow up to see if patient would like to reschedule missed appointment. documented in this encounter Plan of Treatment Not on file documented as of this encounter Visit Diagnoses Not on filedocumented in this encounter Care Teams Tax Professional Relationship Specialty Start Date End Date Jason Batres MD [address] [place] [address] PCP - General 07/27/11 12/31/23 documented as of this encounter
--- OUTSIDE RECORDS SUMMARY | 2024-02-28 16:56 | XMS_ITS | Encounter Summary ---
Author Organization [facility] Address [address] [place] [address] Care Team Providers Care Aquatic Performer Name Role Phone Unavailable Primary Care Provider Unavailabl e Encounter Details Date Type Department Care Team (Late st Contact Info) Description 04/05/2007 15:43 EST - 05/03/2007 11:59 EST Hospital Encounter [facility] - Other [address] [place] [address] Jason Batres MD [address] [place] [phone] Discharge Disposition: Auto Discharge Social History Tobacco [...]
--- OUTSIDE RECORDS SUMMARY | 2024-02-28 16:56 | XMS_ITS | Encounter Summary ---
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 03/24/2014 levothyroxine (SYNTHROID) 112 mcg tablet Take 112 mcg by mouth daily. 04/21/2015 documented as of this encounter Discharge Disposition Disposition Code Departure Means Destination Home or Self Nursing Home documented in this encounter Plan of Treatment Not on file documented as of this encounter Visit Diagnoses Not on filedocumented in this encounter Care Teams Repair Clerk Relationship Specialty Start Date End Date Jason Batres MD [address] [place] [address] PCP - General 07/27/11 12/31/23 documented as of this encounter
--- OUTSIDE RECORDS SUMMARY | 2024-02-28 16:56 | XMS_ITS | Encounter Summary ---
Author Organization [facility] Address [address] [place] [address] Care Team Providers Care Renal Case Manager Name Role Phone Unavailable Primary Care Provider Unavailabl e Encounter Details Date Type Department Care Team (Late st Contact Info) Description 04/30/2007 17:56 EST Hospital Encounter [facility] - Other [address] [place] [address] Jason Batres MD [address] [place] [phone] Discharge Disposition: Home or Self Care Social [...]
--- OUTSIDE RECORDS SUMMARY | 2024-02-28 16:56 | XMS_ITS | Encounter Summary ---
Author Organization [facility] Address [address] [place] [address] Care Team Providers Care Real Time Operator Name Role Phone Jason Batres MD Primary Care Provi margarita Encounter Details Date Type Department Care Team (Late st Contact Info) Description 11/14/2009 Results Only [facility] Laboratory Services - [facility] ([facility] [address] [place] [address] Nikia Gómez MD [address] [place] [address] Social History Tobacco Use Types Packs/Day Years [...] Procedure Name Priority Date/Time Associated Diagnosis Comments OSMOLALITY, URINE Routine 11/14/2009 10: 50 EDT OSMOLALITY Routine 11/14/2009 10:48 EDT SODIUM Routine 11/14/2009 10:48 EDT documented in this encounter Results * OSMOLALITY, URINE (11/14/2009 10:50 EDT) Osmolality, Ur 719 392 - 1090 MOS/KG [facility] 11/14/2009 10:5 0 EDT 11/14/2009 10:51 EDT Nikia Gómez MD URINALYSIS ORDERABLES Final Result Performing Organization Address [facility] de Phone Number [facility] [address] [place] [address] * OSMOLALITY (11/14/2009 10:48 EDT) Osmolality Memo 296 280 - 300 MOS/KG [facility] 11/14/2009 10:4 8 EDT 11/14/2009 10:49 EDT us Nikia Gómez MD CHEMISTRY & BLOOD GAS ORDER ELIU Final Result Performing Organization Address [facility] de Phone Number [facility] [address] [place] [address] * SODIUM (11/14/2009 10:48 EDT) Pathologist [facility] Sodium 143 136 - 145 mEq/L [facility] Comment:[facility] [place], [place] 11/14/2009 10:4 8 EDT 11/14/2009 10:49 EDT Nikia Gómez MD CHEMISTRY & BLOOD GAS ORDER ELIU Final Result Performing Organization Address [facility] de Phone Number [facility] [address] [place] [address] documented in this encounter Visit Diagnoses Not on filedocumented in this encounter Care Teams Real Time Operator Relationship Specialty Start Date End Date Jason Batres MD [address] [place] [phone] PCP - General 08/13/08 05/24/11 documented as of this encounter
--- OUTSIDE RECORDS SUMMARY | 2024-02-28 16:56 | XMS_ITS | Encounter Summary ---
Author Organization 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 He has had corrective eye surgery within the last year orso. This has improved the diplopia. He wears glasses for farsightedness. Last time I saw him, we discussed getting him neuropsych testing to see where he is at from a functional level and then get him into vocational rehab. Unfortunately, neuropsych testing has got a backlog of about 65 patients, meaning that it will take 3 to 6 months to get him in. We reviewed his previous use of Ritalin. He does not really have much of a recollection of whether or not the Ritalin was helpful for him. In reviewing my notes, it was not clear that it was doing anything dramatically to improve his function and attention. However, this was also at a time where hedid not really have much to do either. We reviewed the possibility of restarting the Ritalin at some point in the future after he has started vocational rehabilitation. MEDICATIONS: He is taking Synthroid 112 mcg daily. On exam, he has fairly conjugate gaze today. Denies diplopia. He has good strength throughout. He demonstrates generally poor memory. His speech was clear. His affect was generally bright, although he did get tearful at one point, expressing frustration about his inability to return to a productivelife. In summary, Jeff is a 50-year-old gentleman with ongoing cognitive dysfunction, improved visual disturbances associated with prior craniopharyngioma resection. At this point, I am going to go ahead and refer him to voc rehab before he gets neuropsych testing as it seems like it is going to be quite a while before we can get him scheduled for that. The thing I would like to do is have him in voc rehab for a couple of months and then look at restarting the Ritalin and then having the voc rehab counselors and therapists weight in on whether or not they notice any functional improvements and performance with voc rehab with the initiation of a neuro stimulant. Jeff is in agreement with that plan. I will see him back in a couple of months. We did the referral to voc rehab, and when I see him back at that point, we will look at starting him on the Ritalin again perhaps. I spent half an hour with Jeff, entire time [id number], almost the entire time on education and counseling. 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
--- OUTSIDE RECORDS SUMMARY | 2024-02-28 16:56 | XMS_ITS | Encounter Summary ---
Author Organization [facility] Address [address] [place] [address] Care Team Providers Care Pharmacy Operations Specialist Name Role Phone Jason Batres MD Primary Care Provi margarita Encounter Details Date Type Department Care Team (Late st Contact Info) Description 11/29/2007 Before PRISM Converted Visit (Maple) [facility] - Maple conversion [address] [place] [address] Rebeka Costello MD [address] [place] [address] [phone] Social History Tobacco Use Types Packs/Day Years Used Date Smoking Tobacco: Never Assessed Sex and Gender Information Value Date Recorded Sex Assigned at Male 06/12/2023 11:45 EDT Legal Sex Male 18:05 EST Gender Identity Male 10/03/2019 21:06 EDT Sexual Orientation Straight 06/12/2023 11 :45 EDT documented as of this encounter Progress Notes * Rebeka Costello MD - 09/25/2008 0000 EDT [facility] [address] November 29, 2007 Referring Provider: Dr. Batres Date of Examination: 11/29/2007 Reason for Study: High risks meds, Fracture Densitometer: Longfan Mediaigy Quality of Study: Spine L1-L4: Adequate for interpretation Proximal Femur (hip): Adequate for interpretation The results of this study and any comparable previous studies are as follows: Region Scan Date g/cm2 % Age Matched Z-Score Total Hip (mean)* 11/29/2007 1.006 95 -0.4 AP Spine L1-L4 11/29/2007 1.192 98 -0.2 The Z-score is used in premenopausal women and men under 50 and compares the patient to a cohort ofthe same age. Based on this finding, the patient's bone density is normal. *This site has the lowest bone density in the hip area and therefore is being used for diagnosis. Risk Factors Identified by the Patient ?? Previous history of a fragility fracture after age 40 ?? Lack of regular weight-bearing exercise ?? Anticonvulsant medication Patient's Present Therapy and Suggested Treatment Patient's dietary intake of calcium from questionnaire: 1050 mg. Patient's calcium supplementation from questionnaire: 0 mg. NIH Consensus Panel recommendation: 1000 mg. Adequate vitamin D is recommended: 400-800 units daily. These recommendations for calcium and vitamin D intake may not apply to people with chronic kidney disease or who are on dialysis. Patient should also be encouraged to participate in weight bearing exercise. Based on these findings, calcium and vitamin D may be adequate at this time. The measurement of bone mass cannot diagnose or adequately screen for the presence of metabolic bone disease. Therefore, when clinically indicated, additional studies may be needed. A report of our findings has been sent to your patient. Sincerely, Rebeka Costello M.D. [facility] 12/02/2007 10:45 AM [employer] Document ID: [id number] documented in this encounter Plan of Treatment Not on file documented as of this encounter Visit Diagnoses Not on filedocumented in this encounter Care Teams Pharmacy Operations Specialist Relationship Specialty Start Date End Date Jason Batres MD [address] [place] [phone] PCP - General 08/13/08 05/24/11 documented as of this encounter
--- OUTSIDE RECORDS SUMMARY | 2024-02-28 16:56 | XMS_ITS | Encounter Summary ---
Author Organization [facility] Address [address] [place] [address] Care Team Providers Care Face Boss Name Role Phone Unavailable Primary Care Provider Unavailabl e Encounter Details Date Type Department Care Team (Latest Contact Info) Description 10/24/2007 14:[address] En[address] [facility] [address] [place] [address] Jeff Camargo MD [address] [place] [address] Discharge Disposition: Auto Discharge Social History Tobacco [...]
--- OUTSIDE RECORDS SUMMARY | 2024-02-28 16:56 | XMS_ITS | Encounter Summary ---
Author Organization [facility] Address [address] [place] [address] Care Team Providers Care Vinyl Installer Name Role Phone Jason Batres MD Primary Care Provi margarita Reason for Visit * Reason Comments Eye Problem Encounter Details Date Type Department Care Team (Late st Contact Info) Description 04/13/2010 17:10 EST - 04/13/2010 19:22 EST Hospital Encounter [facility] - [address] [id number] Debby Lemus, ALGOLOGY TEACHER [address] [place] [address] Stye Discharge Disposition: Home or Self Care Social [...] EDT documented as of this encounter Discharge Instructions * Attachments The following attachments cannot be sent through Care Everywhere. * STYES AND CHALAZIA: AFTER YOUR VISIT (KINYARWANDA) documented in this encounter Medications at Time of Discharge acetaminophen (TYLENOL 8 HOUR) 650 mg CR tablet Take 650 mg by mouth daily. 05/26/2011 erythromycin (ROMYCIN) ophthalmic ointment Place into the right eye. Apply ribbon of ointment in lower eyelid every 4 hours while awake 1 Packet 1 04/13/2010 05/26/2011 ibuprofen (ADVIL) 200 mg tablet Take 4 Tabs by mouth 3 times daily as needed. 03/24/2014 levothyroxine (SYNTHROID) 112 mcg tablet Take 112 mcg by mouth daily. 04/21/2015 methylphenidate (RITALIN LA) 40 mg LA capsule Take 40 mg by mouth daily. 05/26/2011 documented as of this encounter Ordered Prescriptions Prescription Sig Dispense Quantity Refills Last Filled Start Date End Date erythromycin (ROMYCIN) ophthalmic ointment Place into the right eye. Apply ribbon of ointment in lower eyelid every 4 hours while awake 1 Packet 1 04/13/2010 2 documented in this encounter Discharge Disposition Disposition Code Departure Means Destination Home or Self Care documented in this encounter ED Notes * Debby Lemus NP - 04/13/2010 1744 EST Images from the original note were not included. DOS: 04/13/2010 Chief Complaint Patient presents with ??? Eye Problem The patient is a 49 y.o. male who presents today with Eye Problem Eye Problem This is a new problem. Episode onset: 4 days ago (during superbowsunday) he thought he had an eyelash in eye. The problem occurs constantly. There is pain in the right eye. There was no injury mechanism. The patient is experiencing no pain (irritated). There is no history of trauma to the eye. There is no known exposure to pink eye. Wears contacts: Wears glasses for crossed eyes. Associated symptoms include discharge (green and crusty in last 2 days), double vision (chronic due to brain tumorsugery 4 years ago) and foreign body sensation. Pertinent negatives include no blurred vision, no decreased vision, no photophobia, no nausea, no vomiting and no eye itching. The history is provided by the patient (Matt). Review of Systems Constitutional: Negative for fever. HENT: Negative. Eyes: Positive for double vision (chronic due to brain tumor sugery 4 years ago) and discharge (green and crusty in last 2 days). Negative for blurred vision, photophobia and itching. Respiratory: Negative for cough. Gastrointestinal: Negative for nausea, vomiting and diarrhea. Neurological: Negative for headaches. Brain tumor surger 3-4 years ago and since then he has had double vision and eyes not lining up. Hewears prism glasses to help his eyes not to cross. No current facility-administered medications on file. Current outpatient prescriptions Medication Sig Dispense Refill ??? erythromycin (ROMYCIN) ophthalmic ointment Place into the right eye. Apply ribbon of ointment in lower eyelid every 4 hours while awake 1 Packet 1 ??? levothyroxine (SYNTHROID) 112 mcg tablet Take 112 mcg by mouth daily. ??? ibuprofen (ADVIL) 200 mg tablet Take 2 Tabs by mouth every 4 hours as needed for Pain. ??? acetaminophen (TYLENOL 8 HOUR) 650 mg CR tablet Take 650 mg by mouth daily. ??? methylphenidate (RITALIN LA) 40 mg LA capsule Take 40 mg by mouth daily. No Known Allergies No past medical history on file. History Substance Use Topics ??? Smoking status: Never Smoker ??? Smokeless tobacco: Not on file ??? Alcohol Use: No No family history on file. There were no vitals taken for this visit. Physical Exam Constitutional: He appears well-nourished. No distress. HENT: Right Ear: External ear normal. Left Ear: External ear normal. Mouth/Throat: Oropharynx is clear and moist. Eyes: Extraocular motions are normal. Pupils are equal, round, and reactive to light. Lids are everted and swept, no foreign bodies found. Right eye exhibits exudate (mild. yellow) and hordeolum. Right conjunctiva is injected. Left conjunctiva is not injected. Fundoscopic exam: The right eye shows red reflex. The left eye shows red reflex. Slit lamp exam: The right eye shows no corneal ulcer and no fluorescein uptake. Normal confrontation test. Pulmonary/Chest: Effort normal. Neurological: He is alert. Skin: Skin is warm and dry. Psychiatric: He has a normal mood and affect. Consult orders: None PCP: JASON BATRES MD No results found for this visit on 04/13/10. Radiology orders: None Procedures Course: Relief of eye with tetracaine (1 drop of right eye) and NS irrigation (approx. 2 cc from NS packet). Focused exam and advised opthamology follow-up if symptoms persist greater than 4 days without improvement or return to ED if worsening at any time. Differentials considered but not limited to: FB, corneal abrasion, conjunctivitis, stye. Discussion: No FB appreciated and no corneal abrasion with staining noted. He has a mild stye of right upper eyelid and with some recent discharge, the presents as a conjucntivitis with stye. Advisedto use warm compresses and good hygiene with continuation of antibiotic ointment for 3 days after symptoms resolve. 1. Stye (373.11A) right upper eyelid margin central Dr. Damon Juarez was available for consultation during my care of this patient. MDM 04/13/2010 20:50 documented in this encounter Miscellaneous Notes * Scanned Note-Null - Inpatient, Physician - 04/13/2010 0000 EST documented in this encounter Plan of Treatment Not on file documented as of this encounter Visit Diagnoses Diagnosis Stye Hordeolum externum documented in this encounter Care Teams Vinyl Installer Relationship Specialty Start Date End Date Jason Batres MD [address] [place] [id number] PCP - General 08/13/08 05/24/11 documented as of this encounter
--- OUTSIDE RECORDS SUMMARY | 2024-02-28 16:56 | XMS_ITS | Encounter Summary ---
Author Organization [facility] Address [address] [place] [address] Care Team Providers Care Wildlife Conservation Professor Name Role Phone Unavailable Primary Care Provider Unavailabl e Encounter Details Date Type Department Care Team (Late st Contact Info) Description 08/26/2007 11:40 EDT Hospital Encounter [facility] [address] [place] [address] Jeff Camargo MD [address] [place] [id number] Social History Tobacco Use Types Packs/Day Years [...] Procedure Name Priority Date/Time Associated Diagnosis Comments T3, TOTAL Routine 10/01/2007 16:45 EDT TSH Routine 10/01/2007 16:45 EDT T4 Routine 10/01/2007 16:45 EDT documented in this encounter Results * TSH (10/01/2007 16:45 EDT) TSH 1.76 0.35 - 5.00 uIU/mL [facility] 10/01/2007 16:4 5 EDT 10/01/2007 18:12 EDT Jason Batres MD CHEMISTRY & BLOOD G ORDERABLES Final Result [facility] [address] [place] [address] * T4 (10/01/2007 16:45 EDT) T4, Total 7.1 4.5 - 10.9 ug/dL [facility] 10/01/2007 16:4 5 EDT 10/01/2007 18:12 EDT us Jason Batres MD CHEMISTRY & BLOOD G ORDERABLES Final Result Performing Organization Address [facility] [place] [facility] de Phone Number [facility] [address] [place] [address] * T3, TOTAL (10/01/2007 16:45 EDT) T3, Total 107 60 - 181 ng/dL [facility] 10/01/2007 16:4 5 EDT 10/01/2007 18:12 EDT us Jason Batres MD CHEMISTRY & BLOOD G ORDERABLES Final Result Performing Organization Address [facility] de Phone Number [facility] [address] [place] [address] documented in this encounter Visit Diagnoses Not on filedocumented in this encounter Additional Health Concerns Infection Onset Date Last Indicated Resolved Time R/O COVID-19 Comment:Negative swab 12/22/2020 12/22/2020 12/22/2020 10/ 021 7:17 EDT R/O COVID-19 Comment:Negative 02/17/2022 02/17/2022 02/18/2022 7:30 EST Rule-Out C. difficile 02/25/2022 02/25/20222021 12:00 EST R/O COVID-19 04/09/2022 04/09/2022 04/09/2022 16:3 2 EST documented as of this encounter
--- OUTSIDE RECORDS SUMMARY | 2024-02-28 16:56 | XMS_ITS | Encounter Summary ---
Author Organization [facility] Address [address] [place] [address] Care Team Providers Care Animal Therapist Name Role Phone Jason Batres MD Primary Care Provi margarita Reason for Visit * Reason Comments Diabetes Encounter Details Date Type Department Care Team (Late st Contact Info) Description 11/11/2013 11:00 EDT Office Visit Jason Batres MD, [facility] [address], [place] [id number] Jason Batres MD [address] [place] [phone] Diabetes mellitus type II, controlled (CMS-HCC) (HCC-CMS) (Primary Dx) Social History Tobacco [...] Sign Reading Time Taken Comments Blood Pressure 100/72 11/11/2013 1040 EDT Pulse 106 11/11/2013 1040 EDT Temperature 37.2 ??C (99 ??F) 11/11/2013 1040 EDT Respiratory Rate - - Oxygen Saturation 98% 11/11/2013 1040 EDT Inhaled Oxygen Concentration - - Weight 114.1 kg (251 lb 9.6 oz) 11/11/2013 1040 EDT Height 188 cm (6' 2) 11/11/2013 1040 EDT Body Mass Index 32.3 11/11/2013 1040 EDT documented in this encounter Patient Instructions * Patient Instructions* Jason Batres MD - 11/11/2013 11:30 EDT 1. documented in this encounter Ordered Prescriptions Prescription Sig Dispense Quantity Refills Last Filled Start Date End Date blood glucose meter (FREESTYLE FREEDOM LITE) Test FS BID. 1 Each 0 11/11/2013 lancets Test BID. 100 Each 1 11/11/2013 10/30/2022 blood glucose (FREESTYLE TEST) test strips 1 Strip by misc (non-drug; combo route) route 2 times daily. 100 Each 1 11/11/2013 05/11/2014 metFORMIN (GLUCOPHAGE) 500 mg tablet One tab PO QD for 7 days, then one tab PO BID. 60 Tab 1 11/11/2013 02/17/2014 documented in this encounter Progress Notes * Jason Batres MD - 11/11/2013 1146 EDT Subjective: Patient ID: Jeff Scott is an 52 y.o. male. Chief Complaint Patient presents with ??? Diabetes HPI Jeff is here to follow-up on his diabetes. I saw him two months ago and his A1C was 12.7. I wantedto see him in one month but he canceled and is back today. He wanted to try dietary changes first, before starting any medication. He did meet with a nurse through [facility] and they talked about his diet. He says he has worked hard on cutting back on soda, orange juice, and bananas. He still has some soda, but not two liter bottles like he was before. He has much less ice cream and sweets as well. He does still eat carbohydrates, although his knows about his diabetes and has been working on his diet and meals that have less carbohydrates. He also had his bike fixed and has been riding that more. He has a visit down in [facility] in late November but he is not sure if this is with his surgeon or with his line clearance foreman. Social Current Outpatient Prescriptions on File Prior to Visit Medication Sig Dispense Refill ??? ibuprofen (ADVIL) 200 mg tablet Take 4 Tabs by mouth 3 times daily as needed. ??? levothyroxine (SYNTHROID) 112 mcg tablet Take 112 mcg by mouth daily. No current facility-administered medications on file prior to visit. No Known Allergies Review of Systems Endo/Heme/Allergies: Thirsty - lots of water Psychiatric/Behavioral: Positive for memory loss. - See HPI Objective: BP 100/72 Pulse 106 Temp(Src) 37.2 ??C (99 ??F) (Tympanic) Ht 188 cm (74) Wt 114.125 kg (251 lb 9.6 oz) BMI 32.29 kg/m2 SpO2 98% Physical Exam Constitutional: He is oriented to person, place, and time. He appears well- developed and well-nourished. Neurological: He is alert and oriented to person, place, and time. Repeats questions multiple times anxious Psychiatric: He has a normal mood and affect. Assessment: Plan: Diabetes Jeff's A1C is 12.8 despite making what sounds like some good dietary changes I told him he may need insulin as it is not coming down at all and he was very worried about injections and did not like this I showed him a lantus solostar pen and the size of the needle and he was reassured by this. His is not with him today, and so it is very difficult to talk with him about all this information and because of this, I do not feel I should start him on insulin without his present Instead - I will start him on metformin 500 mg daily for one week and then BID He will start taking his FS BID so we can see if they are improving Continue with dietary changes I placed a call in to his line clearance foreman at [facility] and I would like them to see him given his high A1C and to see if they agree with insulin and if he needs any testing for type I vs. Type II diabetes Stressed that it would be most helpful if his could come to these appointments as there is a lot of new information ( and I have not discussed yet with him vision check, foot check, urine testing) I spent 60 minutes of face-face time with the patient, over half of it was in counseling Jason Batres MD documented in this encounter Plan of Treatment Not on file documented as of this encounter Visit Diagnoses Diagnosis Diabetes mellitus type II, controlled ([facility])- Primary Type II or unspecified type diabetes mellitus without mention of complication, not stated as uncontrolled documented in this encounter Care Teams Animal Therapist Relationship Specialty Start Date End Date Jason Batres MD [address] [place] [address] PCP - General 07/27/11 12/31/23 documented as of this encounter
--- OUTSIDE RECORDS SUMMARY | 2024-02-28 16:56 | XMS_ITS | Encounter Summary ---
Author Organization [facility] Address [address] [place] [address] Care Team Providers Care Pin Setter Name Role Phone Jason Batres MD Primary Care Provi margarita Encounter Details Date Type Department Care Team (Late st Contact Info) Description 08/13/2008 Office Visit [facility] Rehabilitation Therapy - Medical Office Building [address] [place] [address] Raissa Adams, OT [address] [facility] [address] [place] [address] Social History Tobacco Use Types Packs/Day Years Used Date Smoking Tobacco: Never Assessed Sex and Gender Information Value Date Recorded Sex Assigned at Male 06/12/2023 11:45 EDT Legal Sex Male 18:05 EST Gender Identity Male 10/03/2019 21:06 EDT Sexual Orientation Straight 06/12/2023 11 :45 EDT documented as of this encounter Plan of Treatment Not on file documented as of this encounter Visit Diagnoses * Evaluation - Sukh, Automotive Sales Manager - 08/24/2008 1636 EDT STRUCTURAL TEST ENGINEER REHABILITATION PROGRAM Medical Office Building / [facility] 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 He had surgery in September 2006 for removal of the tumor. He then stayed approximately one month at [facility]. He has had double vision since the surgery due to a misalignment of his eyes. He does have glasses with prisms that align his focus. When wearing the glasses he does not have double vision. He and his report some memory limitations in the area of short term memory. He has osteoarthritis in his left hip, but reports that it does not cause pain when riding in the car. He has a herniated disc in his lower back, but reports no pain when riding in a car. He denies any other vision problems, history of seizures, diabetes or cardiac conditions. 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 He has not worked since September 2006. He would like to go back to work at [employer], but would like an inside job versus delivery job. Driving History and Goals Mr. Scott has not driven on public roadways since September 2006. He denies any history of violations, crashes or DUI's. He would like to return to independent driving in all environments. OBJECTIVE Vision: Mr. Scott wears prism glasses to compensate for a misalignment of his eyes. Ocular-motor skills Pursuits are intact other than the misalignment Saccadic (rapid) eye movements are intact Near point convergence is intact Peripheral vision Visual martinez are full. Binocular vision Stereopsis (3-D depth perception) is intact. Scanning Mr. Garcia visual scanning speed meets the norm for Trails A where he has to scan an 8x11 sheet of paper for 25 numbers. The norm is 42 seconds. He completed the test in 40 seconds Visual attention Visual attention to both moving targets and stationary targets with a competing stimulus are intact. Visual-Cognition: Visual Attention & Processing Speed The Useful Field of View (UFOV) test is a computer-administered and computer- scored assessment of visual attention and processing. The test is correlated with the type of attention and processing speed used in driving. It assesses central, divided and selective attention performance by determining the threshold of time needed (in milliseconds) for the person to perceive information. Mr. Garcia performance on the UFOV was as follows: 1) Central visual attention: normal 2) Divided visual attention: normal 3) Selective visual attention: normal 4) Overall rating: Category 1 (1 being the best of 5) which suggests visual attention skills that are correlated with very low risk for crashes in driving. Visual Perception The Motor-free Visual-Perception Test (MVPT) is a test that assesses a persons ability to interpretvisual information using visual discrimination, figure- ground, object constancy, visual completion and spatial elements. It also assesses the efficiency of a persons visual processing. A score of 30/40 or better in less than 10 minutes is recommended for driving. Mr. Garcia performance on the MVPT, scoring 37/ 40 correctly in 7 minutes 15 seconds suggests visual perception and visual processing efficiency are appropriate for driving. He made no errors in the visual memory section. Trails A and B: This is a cognitive test that assesses working memory, visual processing, visual-spatial skills, selective and divided attention, and psychomotor coordination. Mr. Garcia performance indicates no difficulty. A score of 120 seconds or more suggests a risk for crashes. The norm is 76 seconds. Mr. Scott completed the test in 78 seconds. Goals 1) Patient will demonstrate intact physical skills to manage all driving maneuvers. 2) Patient will demonstrate intact cognitive skills to independently manage intersections. 3) Patient will demonstrate intact cognitive processing speed to react in a timely manner to the driving environment. On-Road Session Mr. Scott was seen for an OT community re-entry session following the OT evaluation in the [facility]. He drove with id in the [facility] area. The vehicle is an automatic vehicle equipped with a passenger side brake. Maneuvering Vehicle Acceleration and Braking He demonstrates smooth acceleration and braking skills. His brake reactions are intact for all levels of traffic. Speed Control He independently attends to the speed limits and appropriately adjusts his speed for the traffic conditions, hills and curves. Following Distances His distance behind vehicles was consistently appropriate (2-4seconds). Turns He demonstrated no limitations with maneuvering the vehicle for both right and left turns. Dana Position He is independent maintaining the vehicle within the dana. He appropriately adjusts his dana position to manage traffic conditions. Parking and Backing He is independent with parking and backing skills. He demonstrated good skills in scanning to the rear of the vehicle when backing as well as speed control. Dana Changes He independently made dana changes to the right and left. Specifically signaling, visually scanningand judging safe gaps in traffic. Intersection Management He independently positioned himself in the correct dana, visually scanned the intersections, identified safe gaps in traffic and attended to traffic conditions at the following types of intersections: a) Stop sign and four way stop signs b) Yield signs c) Traffic lights when going straight, turning right and left d) Traffic lights with two lanes turning left e) Exiting parking lots without traffic lights when making both right and left hand turns. These included turning onto four dana roads. f) Merging onto and off interstates Executive Functions and Behaviors Route Planning He was asked to plan routes, search for businesses and carry out the necessary maneuvers to reach the destinations. 1) He was independent with his ability to execute maneuvers in the correct sequence while attendingto route planning. For example I had him drive us to the [facility] in [place] and [facility] with out using the interstate. He did the following independently: a) He was independent navigating to each destination b) He independently planned the route including dana selection at traffic lights and making dana changes early demonstrating that he was planning ahead. 2) He demonstrated good judgment by avoiding a complex left turn by turning right and finding an appropriate place to turn around and return to his intended route. Attention to Potential Hazards 1) He independently attended to the right and left side of his visual field. For example: a) He attended to pedestrians approaching from both the right and left in a congestive parking lot.He demonstrated overall good search skills in parking lot environments as well as an appropriate speed to manage changes in these congestive environments. b) He consistently provided berth for parked vehicles on his right while attending to oncoming traffic. 2) He intermittently scanned the traffic conditions to the rear. 3) At intersections where there was a limited line of sight he was aware and visually attentive to the dangers. 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 Scott has met the goals listed above ASSESSMENT Mr. Scott was referred to the OT m48/m60 tank driver rehabilitation program. He had surgery in September 2006 for removal of a benign brain tumor in the frontal lobe. Since his surgery he has not driven on public roads prior to working with me. Mr. Scott was assessed in the clinic with cognitive and visual tests. Many of these tests are well studied for predicting crash risk. In all 3 of the test that were administered he scored in the very low risk range which is the best one can achieve. His visual limitationsappear to be satisfactorily managed with the prism glasses for the purpose of driving. Mr. Garcia performance on the road was consistent with that of the clinical tests. He was specifically challenged with navigation to assess his memory and his ability to divide his attention between route planning and the traffic environment. He drove on a complex route requiring him to make judgments regarding traffic hazards. He demonstrated no limitations. Mr. Garcia skills are appropriate for returning to unrestricted driving. PLAN/ RECOMMENDATIONS Resume driving privileges. Discharge from the OT m48/m60 tank driver rehabilitation program If you have any questions or concerns, please do not hesitate to contact me. Dr. Camargo, please sign and return the attached letter in the enclosed envelope if you agree with the plan/ recommendations. Sincerely, Electronically Signed by Raissa Adams MS OTLetty 08/24/2008 16:35 Raissa Adams MS OTLetty Certified Driving Mathematics Lecturer [place] Cyanide Furnace Operator cc: *Jeff Scott - [address] [place] [phone] *Jeff Camargo MD - [facility] D: - Raissa Adams MS OTR P - JTM Job ID: Document ID: [id number] documented in this encounter Care Teams Pin Setter Relationship Specialty Start Date End Date Jason Batres MD [address] [place] [address] [phone] PCP - General 08/13/08 05/24/11 documented as of this encounter
--- OUTSIDE RECORDS SUMMARY | 2024-02-28 16:56 | XMS_ITS | Encounter Summary ---
Author Organization [facility] Address [address] [place] [address] Care Team Providers Care Solar System Installer Name Role Phone Jason Batres MD Primary Care Provi margarita Encounter Details Date Type Department Care Team (Late st Contact Info) Description 07/10/2008 Office Visit [facility] Rehabilitation Therapy - [address] [address] Ramandeep Hardy, NIKI Social History Tobacco Use Types Packs/Day Years Used Date Smoking Tobacco: Never Assessed Sex and Gender Information Value Date Recorded Sex Assigned at Male 06/12/2023 11:45 EDT Legal Sex Male 18:05 EST Gender Identity Male 10/03/2019 21:06 EDT Sexual Orientation Straight 06/12/2023 11 :45 EDT documented as of this encounter Progress Notes * Ramandeep Hardy, OT - 04/07/2009 0723 EST REHABILITATION THERAPIES Office Building / [facility] [address], [address] [place] [address] THERAPY DISCONTINUE NOTE SERVICE DATE: 07/10/2008 REFERRING PROVIDER: Jeff Camargo M.D. PRIMARY CARE PROVIDER: Jason Bartes M.D. 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 Mr. Scott inquired about volunteering at the [employer] and he reported that they did not need additional volunteers. Mr. Scott reports that he continues to have difficulty following through sometimes with household activities and maintaining regular schedule of purposeful activity at home. He states that his ultimate goal is to be able to go backto workfor [employer]. OBJECTIVE Mr. Scott had been seen in occupational therapy to address his ability to attend to work-related tasks. Goal of therapy was to be able to transfer the skills to a volunteer job or work environment. Following therapy, Mr. Scott was working at a medium work capacity. Objective data was as follows: Lifting 35 pounds frequently floor to waist and waist to shoulder. Occasional lift 60 pounds floor to waist. Dynamic push/pull 100 pounds, carrying 40 pounds. ASSESSMENT Mr. Scott continues to demonstrate significant deficit in initiation and motivation that affects his ability to consistently follow through with occupation based activity at home. He did successfullymake contacts in his community for possible work of volunteer opportunities which was the ultimate g oal of therapy. He appeared enthusiastic about these opportunities and said that he would follow through with them. He felt that he could successfully assist his brother with carpentry tasks. He had agreed that he would not use power tools. He continues to wear prism glasses, which he takes on and off while he is working. It has been recommended to him that he have a follow-up appointment with the analytics specialist who prescribed the prism glasses after his injury. He demonstrated he was solidly in a medium work capacity or even slightly higher. Within the occupational therapy environment he was able to sustain work effort and be able to sequence several tasks in a row without cueing. He continues to be mildly distractible and occasionally mild short-term memory problems affect his ability to follow through with instructions. It appears that Mr. Scott could be successful in a supervised environment with tasks that he is familiar doing. His social skills, although good, ultimately appearto be his biggest problem in a work environment as that he enjoys conversation and has a difficult time coming back to task without cueing. I have contacted Mr. Scott since the completion of his therapy program and left a voice mail and havenot heard back from him to know the success of his plans. He also was contacted by physical therapy and has not returned the message. SHORT TERM GOALS (6 weeks): 1. Mr. Scott will sustain a work effort without interruption for 20 minutes in a job related skill.- MET 2. With assistance from Mr. Scott will contact his former employer to determine if he can be considered for any jobs at [employer]. - MET 3. Mr. Scott will complete one work related activity at home on a consistent basis. - MET 4. Mr. Scott will complete three tasks in occupational therapy within 20 minutes without interruption. - MET [facility] GOALS (12 weeks): 1. Mr. Scott will be involved in a purposeful activity outside of his home for 3 hours weekly. - MET PLAN Mr. Scott has no further appointments in occupational therapy. He will be seen by [facility] Techn[facility] for an evaluation. If I can be of further assistance, please contact me at [phone]. Thank you very much for the referral. Signed by DON Benítez 07/28/2008 12:56 DON Benítez cc: MD Jason Kelley MD - DON Benítez P - [facility] Job ID: [id number] Document ID: [id number] documented in this encounter Plan of Treatment Not on file documented as of this encounter Visit Diagnoses Not on filedocumented in this encounter Care Teams Solar System Installer Relationship Specialty Start Date End Date Jason Batres MD [address] [place] [phone] PCP - General 08/13/08 05/24/11 documented as of this encounter
--- OUTSIDE RECORDS SUMMARY | 2024-02-28 16:56 | XMS_ITS | Encounter Summary ---
Author Organization [facility] Address [address] [place] [address] Care Team Providers Care Dye House Hand Name Role Phone Jason Batres MD Primary Care Provi margarita Alexus De La O RN Unavailable [facility] Internal Medicine, Primary Care Provi margarita Reason for Visit * Reason Comments Other Encounter Details Date Type Department Care Team (Late st Contact Info) Description 02/17/2014 Refill Jason Batres MD, PC [address] [place], [place] [phone] Jason Batres MD [address] [place] [phone] Other Social History Tobacco Use Types [...] Date metFORMIN (GLUCOPHAGE) 500 mg tablet TAKE 1 TAB BY MOUTH ONCE DAILY FOR 7 DAYS THEN TAKE 1 TAB TWICE DAILY THEREAFTER 60 Tab 0 02/17/2014 12/16/201 4 documented in this encounter Plan of Treatment Not on file documented as of this encounter Visit Diagnoses Not on filedocumented in this encounter Discontinued Medications Medication Sig Discontinue Reason Start Date End Da te metFORMIN (GLUCOPHAGE) 500 mg tablet One tab PO QD for 7 days, then one tab PO BID. Reorder 11/11/2013 02/17/2014 documented as of this encounter Additional Health Concerns Infection Onset Date Last Indicated Resolved Time R/O COVID-19 Comment:Negative swab 12/22/2020 12/22/2020 12/22/2020 021 7:17 EDT R/O COVID-19 Comment:Negative 02/17/2022 02/17/2022 02/18/2022 7:30 EST Rule-Out C. difficile 02/25/2022 02/25/20222021 12:00 EST R/O COVID-19 04/09/2022 04/09/2022 04/09/2022 16:3 2 EST documented as of this encounter Care Teams Dye House Hand Relationship Specialty Start Date End Date Jason Batres MD [address] [place] [phone] PCP - General 07/27/11 12/31/23 [facility], [address] [place] [address] PCP - General 01/01/24 Alexus De La O RN Care Manager 04/18/22 08/13/23 documented as of this encounter
--- OUTSIDE RECORDS SUMMARY | 2024-02-28 16:56 | XMS_ITS | Encounter Summary ---
Author Organization [facility] Address [address] [place] [address] Care Team Providers Care Barge Pilot Name Role Phone Unavailable Primary Care Provider Unavailabl e Encounter Details Date Type Department Care Team (Latest Contact Info) Description 02/25/2008 15:51 EST Hospital Encounter [facility] [address] [place] [address] Jeff Camargo MD [address] [place] [phone] Discharge Disposition: Auto Discharge Social History Tobacco [...]
--- OUTSIDE RECORDS SUMMARY | 2024-02-28 16:56 | XMS_ITS | Encounter Summary ---
Author Organization [facility] Address [address] [place] [address] Care Team Providers Care Base Filler Operator Name Role Phone Unavailable Primary Care Provider Unavailabl e Encounter Details Date Type Department Care Team (Late st Contact Info) Description 03/18/2008 12:56 EST Hospital Encounter [facility] [address] [place] [address] Jeff Camargo MD [address] [place] [phone] Social History Tobacco Use Types Packs/Day Years [...]
--- OUTSIDE RECORDS SUMMARY | 2024-02-28 16:56 | XMS_ITS | Encounter Summary ---
Author Organization [facility] Address [address] [place] [address] Care Team Providers Care Section Housekeeper Name Role Phone Jason Batres MD Primary Care Provi margarita Encounter Details Date Type Department Care Team (Latest Contact Info) Description 02/25/2013 Orders Only Non [facility] Ancillary Services Nikia Gómez MD [address] [place], [place] [phone] Panhypopituitarism (HCC-CMS) (Primary Dx) Social History Tobacco Use [...] documented as of this encounter Results * T4 FREE (02/25/2013 11:30 EST) Free T4 1.3 0.8 - 1.8 ng/dL [facility] Blood specimen (specimen) 02/25/2013 11:30 EST 02/25/2013 13:02 EST us Nikia Gómez MD CHEMISTRY & BLOOD GAS ORDER ELIU Final Result [facility] [address] [place] [address] documented in this encounter Visit Diagnoses Diagnosis Panhypopituitarism (HCC-CMS)- Primary Panhypopituitarism documented in this encounter Care Teams Section Housekeeper Relationship Specialty Start Date End Date Jason Batres MD [address] [place] [phone] PCP - General 07/27/11 12/31/23 documented as of this encounter
--- OUTSIDE RECORDS SUMMARY | 2024-02-28 16:56 | XMS_ITS | Encounter Summary ---
Author Organization [facility] Address [address] [place] [address] Care Team Providers Care Cancer Registry Manager Name Role Phone Jason Batres MD Primary Care Provi margarita Encounter Details Date Type Department Care Team (Latest Contact Info) Description 11/14/2009 10:36 EDT - 11/14/2009 23:59 EDT Hospital Encounter [address] [address] Nikia Gómez MD [address] [place] [address] Discharge Disposition: Home or Self Care Social History Tobacco Use Types Packs/Day Years Used Date Smoking Tobacco: Never Assessed Sex and Gender Information Value Date Recorded Sex Assigned at Male 06/12/2023 11:45 EDT Legal Sex Male 18:05 EST Gender Identity Male 10/03/2019 21:06 EDT Sexual Orientation Straight 06/12/2023 11 :45 EDT documented as of this encounter Medications at Time of Discharge acetaminophen (TYLENOL 8 HOUR) 650 mg CR tablet Take 650 mg by mouth daily. 05/26/2011 ibuprofen (ADVIL) 200 mg tablet Take 4 Tabs by mouth 3 times daily as needed. 03/24/2014 levothyroxine (SYNTHROID) 112 mcg tablet Take 112 mcg by mouth daily. 04/21/2015 methylphenidate (RITALIN LA) 40 mg LA capsule Take 40 mg by mouth daily. 05/26/2011 documented as of this encounter Discharge Disposition Disposition Code Departure Means Destination Home or Self Half[place] documented in this encounter Plan of Treatment Not on file documented as of this encounter Visit Diagnoses Not on filedocumented in this encounter Care Teams Cancer Registry Manager Relationship Specialty Start Date End Date Jason Batres MD [address] [place] [phone] PCP - General 08/13/08 05/24/11 documented as of this encounter
--- OUTSIDE RECORDS SUMMARY | 2024-02-28 16:56 | XMS_ITS | Encounter Summary ---
Author Organization [facility] Address [address] [place] [address] Care Team Providers Care Customer Support Engineer Name Role Phone Unavailable Primary Care Provider Unavailabl e Encounter Details Date Type Department Care Team (Latest Contact Info) Description 12/17/2007 15:56 EDT Hospital Encounter [facility] [address] [place] [address] Jeff Camargo MD [address] [place] [phone] Discharge Disposition: Auto Discharge Social History Tobacco [...]
--- OUTSIDE RECORDS SUMMARY | 2024-02-28 16:56 | XMS_ITS | Encounter Summary ---
Author Organization [facility] Address [address] [place] [address] Care Team Providers Care Marine Structural Designer Name Role Phone Jason Batres MD Primary Care Provi margarita Reason for Visit * Reason Comments Cognitive Decline Encounter Details Date Type Department Care Team (Late st Contact Info) Description 09/15/2011 9:00 EDT Office Visit [facility] Program - Medical Office Building [address] [place] [address] [phone] Sebastian Sheehan, PhD [address] [place] [address] Medical Office Building, [address] [place] [address] Mood disorder in conditions classified elsewhere (Primary Dx); Benign neoplasm of brain (HCC-CMS) Social History Tobacco Use Types Packs/Day [...] :45 EDT documented as of this encounter Consult Notes * Sebastian Sheehan, PhD - 09/25/2011 1510 EDT [facility] Medical Office Building [address], [address] [place] [address] CONSULTATION - 09/15/2011 NEUROPSYCHOLOGICAL EVALUATION Mr Jeff Scott was seen for neuropsychological evaluation on 09/15/2011. He was referred by Dr House (Physical Medicine and Rehabilitation) and was seen as an outpatient at the Medical OfficeBuilding on the [facility]. PERTINENT BACKGROUND INFORMATION: Mr Scott was born in [place], [place], and grew up in [place]. His mother at about age 70 of CVA and his father about age 65 of lung cancer. He is the fourth offive children in his family, having three living siblings and a sister who of breast cancer [id number]. He has been to Nguyen Scott since 1988. He graduated from high school in 1979 and attended a year of [email or web address] school in [place]. He has two sons, ages 17 and 19, both residing with the patient and his in [place]. 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 He has a neuropsychiatric history that is negative for strokes/TIA, seizures, TBI/concussion, learning disability, toxic exposure, and migraine headaches. His family history is significant for both parents having problems with alcohol abuse. There is no known family history of dementia. HISTORY OF PRESENTING ILLNESS: Mr Scott had experienced an approximate 9-month history of psychiatric symptoms including mood change and behavioral change. It was thought possibly to be due to the recent loss of his sister and/or addiction to opioid medication following back surgery and also possibly alcohol abuse. He tried both inpatient and outpatient treatment for addiction, but both apparently had failed. 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 He was admitted to [facility], where on 09/06/06, he underwent left craniotomy and resection. He also spent about one month (09/13-10/16/06) on the [facility] inpatient rehabilitation unit. He was eventually discharged home to the care of his and attended outpatient PT, OT and CHILDREN'S NURSERY ASSISTANT at [facility]. He has made a reasonably good physical recovery and is able to attend to his most basic needs and has resumed driving, but he continues to be disabled from work. He recently has been followed by Dr Jeff Camargo of Physical Medicine and Rehabilitation, who referred him for this neuropsychological evaluation. BEHAVIORAL OBSERVATIONS AND CONSULTATION FINDINGS: Mr Scott arrived early and accompanied by his , but he was seen alone for interview and testing. He presented as a large man, both very tall andsomewhat overweight, who was adequately groomed and casually dressed. He had a hardly visible old craniotomy scar. He comprehended task instructions adequately and appeared to put forth good effort when taking tests. He was a fair historian during interview and the information obtained is reviewed below. 1. Sensory-Perceptual Symptoms: He reports having chronic left hip pain for which he takes ibuprofen only; it was rated as a 3 to 4 of 10 severity the day of the evaluation. He had diplopia post-surgery in 2006 and this was successfully surgically corrected in 2010. He is not aware of any changes or problems with his hearing, tactile sensation, sense of smell or taste. 2. Physical and Motor Symptoms: He reports that his balance has gotten much better over the years but is not quite at baseline. He does have to take his time going up and down stairs. He feels his strength is pretty good, but he describes himself as being less rugged than he used to be. He is notaware of any problems with fine motor functioning. His overall endurance is decreased and he confesses that he lacks the initiative to exercise on a regular basis. 3. Communication Symptoms: He is not aware of any changes with his speech. He reports that his auditory comprehension is fine. He does very little reading, mostly the newspaper and magazines; his reading comprehension is fair, but his retention is reduced some. He describes his handwriting as beingsloppier but still legible. 4. Cognitive Symptoms: He has no problems with geographic orientation, but acknowledges that he canbe off 2-3 days with regards to orientation for date. He does not think he has any problems with attention or concentration. He reports that his remote memory is okay. He acknowledges that his recallof recent events and recent conversations are unreliable. He relies on written information for prospective memory. He acknowledges having difficulty with procedural recall such as doing mechanical tasks with auto and lawnmowers. He no longer does any math calculations and does not know if his skills have changed. He thinks he is okay with planning and time management. He does not think that his decision making and problem solving skills are as good as they used to be and many of the family decisions are now made by his . 5. Emotional and Psychological Functioning: He acknowledges grieving his lost abilities, but deniesanxiety or irritability. He is much more labile, indicating that he becomes upset and weepy with little provocation. He sleeps fine and does require more sleep. He used to require naps, but now gets by mostly with afternoon rest breaks. His appetite is fine and his weight has fluctuated; his baseline was 230 pounds and then he got up to 305 post-surgery and now is down to 265. He is not sexually active, indicating that there has been a substantial decline following his surgery. He denies passive wishes for , suicidal ideation, hallucinations and delusions. He used smokeless tobacco and indicates that he quit about 2005 (however, his is not certain of this). He has a history of excessive alcohol use but denies use since 2006. Also, he has a previous history of opioid abuse following a back injury; however, he reports he has not taken narcotic medication for some time. Lastly, he has a significant issue with low initiation, which does tend to affect his daily functioning in a number of areas. He obtained a score of 12 on the Harris Depression Inventory, which falls in the minimal (normal) range, and a score of 3 on the Harris Anxiety Inventory, which also falls in the minimal (normal) range. 6. Adaptive Daily Functioning: He reports that his basic self-care is okay and he is showering every 1-3 days. He does the lawn mowing, weed trimming and wood splitting. Indoor chores are limited to what his asks him to do. He does reportedly cook occasionally. His has always done the bill paying and shopping and this continues to be the case. As previously indicated, he has been out ofwork since 2006. He was able to pass the disabled local driver's evaluation and get his license back; he drives only occasionally, the last being about 2 weeks ago. 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 7. Legal and Financial Issues: He has been receiving Social Security disability benefits since about 2006. There are no other reported legal or financial matters pending. INFORMATION OBTAINED FROM FAMILY INTERVIEW: Nguyen Scott () was interviewed to obtain additional information. She reports that her 's remote memory is okay, but he does have a problem remembering names, recent events and scheduled activities. She has tried to get him to write things down to compensate, but he has been adamantly resistant to this. He, contrary to his report, can be fairly distractable, often failing to complete tasks. She believes that his cognitive function has plateaued as she has not seen any positive change for a year or two. Ms Scott reports that her 's independent daily functioning has gotten a little better over the last 6 years but not much. He continues to need reminders to shave and shower and could go a week without doing so if not cued by her.He does not do a great deal of activity in general during the day; he needs constant cueing to complete tasks. He is unreliable taking his medication. He does not get out of bed until about 9 a.m., but does get his own breakfast and lunch once up. He tends to be very cautious; there has not been any significant safety issues to report. He does spend much of his day in sedentary activity. He does get easily upset, such as when criticized and will become weepy, as reported by the patient. Lastly,she indicates that he does not always tell the truth, so she is uncertain if she is operating with good information about his daily activities when she is not around. NEUROPSYCHOLOGICAL FINDINGS: Mr Scott was administered a battery of neuropsychological tests, evaluating a range of brain-behavior functions. His performance on these measures is reviewed below. 1. Orientation: He was adequately oriented to self, place, date/time, and situation. 2. Attention and Mental Processing Speed: His ability to focus attention and sustain concentration was in the normal range across a number of testing tasks. His mental processing speed, however, was borderline impaired. He was slowest on tasks with a visual motor component. 3. Motor Functioning: He is right-hand dominant. Upper extremity simple motor speed is low average with the right hand and average with the left. Upper extremity basic watch dial stoner strength is in the normal range, bilaterally. 4. Sensory-Perceptual Functions: He made no tactile, visual, or auditory errors on the Ixcbdw-Ygtmdufgsgzf-adwrmfrlnp examination. On other perceptual tasks, he did have some difficulty performing visual scanning on tasks requiring matching and sequencing. There was no apparent problem with spatial organization. 5. Communication Skills: His spontaneous speech was clearly articulated and otherwise unremarkable;there were no instances of word finding difficulties noted. Upon testing, object naming to confrontation was borderline to low average. Expressive vocabulary was low average. Verbal fluency was also below average. Auditory comprehension was acceptable for multiple-step commands, sentences and shortstories. 6. Memory Functions: His overall free recall memory functioning fell in the borderline impaired range. Immediate recall of orally-presented verbal material was uniformly low average. Thirty-minute delayed recall of verbal material ranged from mildly impaired to low average. Immediate recall of visually- presented spatial material was borderline impaired across a number of memory tasks. Delayed recall of spatial material was mildly impaired overall. Overall, his verbal memory was slightly better than his spatial memory. His delayed recognition memory was average and was notably superior to his delayed recall memory. He demonstrated only fair capacity to improve memory retention over repeated learning trials. 7. Reasoning Skills: His verbal reasoning abilities ranged from low average (abstract word pairs) to average (functional verbal problem solving). His general fund of knowledge was in the normal range. Visual-spatial problem solving ranged from low average to high average and was in the normal range overall. Mental math problem solving was average. Abstract conceptual problem solving, including hypothesis generation and testing, was grossly within normal limits. 8. Intellectual Skills: He obtained the following index scores on the WAIS-IV: Verbal Pwzspbyykyers66; Perceptual Reasoning 100; Working Memory 100; Processing Speed 76. He obtained a Full Scale score of 89, which falls in the low average range and at the 23rd percentile. This does appear to be a decline from his premorbid intellectual level. SUMMARY AND IMPRESSION: Mr Jeff Scott is a 50-year-old, right-handed, man with 13 years ofeducation. He is five years status post craniotomy and resection of a craniopharyngioma on 09/06/2006t [facility]. He now is apparently neurologically stable and [...] to start investigating his employment options. Mr Soctt has apparently been on an antidepressant in the past, although I do not know the specifics. He does not appear to be frankly depressed, but he would still benefit from an SSRI-class medication for his labile affect. 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 TOTAL TIME: 6.0 hours. Time includes 3 [place] [address] performed by a psychologist and 3 [place] [address] performed by a plant technician/control room operator (this time was separate from that of the psychologist). Electronically Signed by Sebastian Sheehan, PHD 09/26/2011 10:54 Sebastian Sheehan, PHD - Sebastian Sheehan, PHD - JV Job ID: SM Doc ID: [id number] Ext Doc ID: [id number] cc: documented in this encounter Plan of Treatment Not on file documented as of this encounter Visit Diagnoses Diagnosis Mood disorder in conditions classified elsewhere- Primary Benign neoplasm of brain (HCC-CMS) Benign neoplasm of brain documented in this encounter Care Teams Marine Structural Designer Relationship Specialty Start Date End Date Jason Batres MD [address] [place] [address] PCP - General 07/27/11 12/31/23 documented as of this encounter
--- OUTSIDE RECORDS SUMMARY | 2024-02-28 16:56 | XMS_ITS | Encounter Summary ---
Author Organization [facility] Address [address] [place] [address] Care Team Providers Care Prison Teacher Name Role Phone Jason Batres MD Primary Care Provi margarita Encounter Details Date Type Department Care Team (Late st Contact Info) Description 10/24/2007 Before PRISM Converted Visit (Maple) [facility] - Maple conversion [address] [place] [address] Jeff Camargo MD [address] [place] [address] [id number] Social History Tobacco Use Types Packs/Day Years Used Date Smoking Tobacco: Never Assessed Sex and Gender Information Value Date Recorded Sex Assigned at Male 06/12/2023 11:45 EDT Legal Sex Male 18:05 EST Gender Identity Male 10/03/2019 21:06 EDT Sexual Orientation Straight 06/12/2023 11 :45 EDT documented as of this encounter Progress Notes * Jeff Camargo MD - 12/03/2008 3907 EDT PHYSICAL MEDICINE / REHABILITATION PROGRESS/FOLLOWUP NOTE - 10/24/2007 OUTPATIENT FOLLOW-UP CLINIC DATE OF SERVICE: 10/24/2007 ATTENDING PHYSICIAN: Jeff Camargo MD PRIMARY CARE PHYSICIAN: Jason Batres MD REASON FOR EVALUATION/FOLLOW UP 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 HISTORY OF PRESENT ILLNESS Mr. 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 He is wearing bilateral prism glasses. He has been followed up for his hormone levels and on his current dose of Synthroid he is euthyroid. He has been withdrawn from his Effexor, which had been titrated up a bit further but discontinued due to lack of effect and in anticipation of a Ritalin trial. His continues to express that he is extremely unmotivated and suffering from lack of initiative. Jeff seems to notice this but does not seem to be particularly concerned about it. He has also had a moderate amount of weight gain due to inactivity. PHYSICAL EXAMINATION On exam, as in the past, he continues to have disconjugate gaze. He has bilateral prism glasses, asmentioned. No other focal neurologic deficits are identified. His affect is bright. His speech is clear. SUMMARY Jeff cSott is a 46-year-old gentleman with above-mentioned history and ongoing lack of initiation and motivation. At this time, we will begin a Ritalin trial. Due to his size, I will start at 10 mg daily. I reviewed with him the typical side effects to include insomnia, decreased appetite, tachycardia, and agitation. I reviewed with him that we will start at this dose, consider switching to a long-acting if necessary or adding a second dose during the day depending on his clinical response to it. We also discussed briefly timing of him trying to get back to work at some level. 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 I said that once we have gotten him on a stable dose of a neurostimulant of some sort, we will send him to vocational rehab. Repeat neuropsychological evaluation might be useful as part ofthe vocational reentry process at some point. I spent 25 minutes with Jeff and his today. The entire time in tqir-wd-sgtz contact, the majority of which was spent on education and counseling. Signed by Jeff Camargo MD 10/30/2007 13:16 Jeff Camargo MD - Jeff Camargo MD - Job ID: [id number] Doc ID: [id number] cc: Jason Batres MD documented in this encounter Plan of Treatment Not on file documented as of this encounter Visit Diagnoses Not on filedocumented in this encounter Care Teams Prison Teacher Relationship Specialty Start Date End Date Jason Batres MD [address] [place] [phone] PCP - General 08/13/08 05/24/11 documented as of this encounter
--- OUTSIDE RECORDS SUMMARY | 2024-02-28 16:56 | XMS_ITS | Encounter Summary ---
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 methylphenidate (RITALIN LA) 40 mg LA capsule Take 40 mg by mouth daily. 05/26/2011 acetaminophen (TYLENOL 8 HOUR) 650 mg CR tablet Take 650 mg by mouth daily. 05/26/2011 ibuprofen (ADVIL) 200 mg tablet Take 4 Tabs by mouth 3 times daily as needed. 03/24/2014 levothyroxine (SYNTHROID) 112 mcg tablet Take 112 mcg by mouth daily. 04/21/2015 added in this encounter Care Teams Pulp Screen Operator Relationship Specialty Start Date End Date Jason Batres MD [address] [place] [phone] PCP - General 08/13/08 05/24/11 documented as of this encounter
--- OUTSIDE RECORDS SUMMARY | 2024-02-28 16:56 | XMS_ITS | Encounter Summary ---
Author Organization [facility] Address [address] [place] [address] Care Team Providers Care Executive Administrator Name Role Phone Jason Batres MD Primary Care Provi margarita Reason for Visit * Reason Onset Date Comments Medications Refill 02/17/2014 Encounter Details Date Type Department Care Team (Late st Contact Info) Description 02/17/2014 Refill Jason Batres MD, PC [address] [place], [place] [phone] Jason Batres MD [address] [place] [address] Medications Refill Social History Tobacco [...] (GLUCOPHAGE) 500 mg tablet TAKE 1 TAB TWICE DAILY. 60 Tab 0 02/17/2014 03/24/2014 documented in this encounter Plan of Treatment Not on file documented as of this encounter Visit Diagnoses Not on filedocumented in this encounter Discontinued Medications Medication Sig Discontinue Reason Start Date End Da te metFORMIN (GLUCOPHAGE) 500 mg tablet TAKE 1 TAB BY MOUTH ONCE DAILY FOR 7 DAYS THEN TAKE 1 TAB TWICE DAILY THEREAFTER Reorder 02/17/2014 02/17/2014 documented as of this encounter Care Teams Executive Administrator Relationship Specialty Start Date End Date Jason Batres MD [address] [place] [address] PCP - General 07/27/11 12/31/23 documented as of this encounter
--- OUTSIDE RECORDS SUMMARY | 2024-02-28 16:56 | XMS_ITS | Encounter Summary ---
Author Organization [facility] Address [address] [place] [address] Care Team Providers Care Business Representative Name Role Phone Unavailable Primary Care Provider Unavailabl e Encounter Details Date Type Department Care Team (Late st Contact Info) Description 10/01/2007 18:06 EDT Hospital Encounter [facility] - Other [address] [place] [id number] Jason Batres MD [address] [place] [phone] Discharge Disposition: Home or Self Care Social [...]
--- OUTSIDE RECORDS SUMMARY | 2024-02-28 16:56 | XMS_ITS | Encounter Summary ---
Author Organization [facility] Address [address] [place] [address] Care Team Providers Care Fighter Pilot Name Role Phone Jason Batres MD Primary Care Provi margarita Encounter Details Date Type Department Care Team (Late st Contact Info) Description 01/22/2013 10:59 EST - 01/22/2013 23:59 EST Hospital Encounter [address] [address] Jason Batres MD [address] [place] [phone] Discharge Disposition: Auto Discharge Social History Tobacco [...] as of this encounter Discharge Diagnoses Diagnosis 719.45 JOINT PAIN-PELVIS[ICD-9-CM] documented in this encounter Medications at Time [...] on filedocumented in this encounter Care Teams Fighter Pilot Relationship Specialty Start Date End Date Jason Batres MD [address] [place] [address] PCP - General 07/27/11 12/31/23 documented as of this encounter
--- OUTSIDE RECORDS SUMMARY | 2024-02-28 16:56 | XMS_ITS | Encounter Summary ---
Author Organization [facility] Address [address] [place] [address] Care Team Providers Care Annealer Helper Name Role Phone Jason Batres MD Primary Care Provi margarita Encounter Details Date Type Department Care Team (Late st Contact Info) Description 02/08/2007 Before PRISM Converted Visit (Maple) [facility] - Maple conversion [address] [place] [address] Kendal Salinas O, PT [address] [place] [phone] Social History Tobacco Use Types Packs/Day Years Used Date Smoking Tobacco: Never Assessed Sex and Gender Information Value Date Recorded Sex Assigned at Male 06/12/2023 11:45 EDT Legal Sex Male 18:05 EST Gender Identity Male 10/03/2019 21:06 EDT Sexual Orientation Straight 06/12/2023 11 :45 EDT documented as of this encounter Progress Notes * Kendal Palmer, PT - 01/12/2009 2019 EST [facility] PHYSICAL THERAPY PROGRESS/RECERTIFICATION NOTE SERVICE DATE: 02/08/2007 REFERRING PROVIDER: Artie Preston MD PRIMARY CARE PROVIDER: DIAGNOSIS/ONSET/ICD9#: 1. Gait abnormality / 09/06/2006 / 781.2. 2. 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 PRECAUTIONS: Diplopia. SUBJECTIVE The patient reports that things are going well with his strengthening program at the gym as well aswith aquatic physical therapy. He feels as if his left hip pain has not gotten any worse with the initiation of the strengthening program or the aquatic physical therapy. In fact, he thinks it might even be slightly better. His reports (in phone conversation this week) that he has not had to use any additional medications and has not been complaining of pain. He reports that he obtained someprism classes to help with his diplopia at the neuroophthalmologist yesterday, which he was wearingduring the evaluation toda. He is still getting used to them. He has having trouble reading up close, which is frustrating. However, it has made the diplopia go away, which he is thankful for. His and he both report no falls or incidence of loss of balance. He is not having any trouble ambulating in the community or doing the stairs. OBJECTIVE Patient was last seen on January 04, 2007 at a local gym where he has a membership and a strengthening program was set up for him by this physical therapist. Reevaluation today occurred at the same local gym to assess status of his strengthening program and make any additional changes as necessary.The patients status is as follows: STRENGTH Lower extremity strength: Hip flexion on the left was 4/5 with minimal pain, on the right 5/5; kneeextension bilaterally 5/5; and hip internal rotation and hip external rotation 5/5; hip extension bilaterally was 4/5; knee flexion bilaterally 5/5; hip abduction on the left was 4/5 with slight painof the hip joint, and on the right was 4/5. Of note, patient cannot assume test position for hip external rotation secondary to decreased range of motion bilaterally, so resistance was given in neutral hip rotation. RANGE OF MOTION Patients left hip flexion is 120 degrees with some mild discomfort with overpressure; left hip internal rotation is 5 degrees with some discomfort; right hip external rotation is 20 degrees with no pain. OTHER Patient is performing a cardiovascular workout and strengthening program designed by this physical therapist which he has been doing consistently two to three times a week with supervision from friends. Patient was observed today to require occasional cues to set up the machines properly, mainly because he had difficulty seeing some of the smaller numbers on the weight stacks. He was largely independent in following his program, but did need occasional cueing. Please refer to therapeutic exercise flow sheet for details about changes made to Moe exercise program. INTERVENTIONS COMPLETED TODAY Patient education: Reviewed with patient and patienthelper proper technique on a few of the exercises. Discussed changes to be made to the therapeutic exercise flow sheet to make it easier for Jeff and his helpers to follow it. Reinforced the need for Jeff to increase his weight on the machines as tolerated so he is getting the most benefit, and also to increase his cardio workout to a total of 30 minutes. ASSESSMENT Patient presenting today with mild increases in lower extremity strength, most notably in the hip flexors, the hip extensors, and the hip internal and external rotators. He does continue to have verylimited left hip range of motion with pain and confesses to not doing the stretches that we have taught him on a daily basis. Believe that it will be important for Jeff to have regular followup on his strengthening program at periodic interbals as he is not yet independent in progressing his program, nor are his helpers. Recommend that we schedule a followup at the gym in eight weeks to assess his progress. PLAN Patient to be seen in eight weeks for followup for assessment of progress of exercise program. New therapeutic exercise flow sheet to be made with additional instructions for patienthelpers and to include the daily hip stretches on the flow sheet. Thank you for this referral. Signed by Kendal Palmer PT 02/11/2007 16:02 Kendal Palmer PT cc: Artie Preston MD - Kendal Palmer PT P - plf Job ID: [id number] Document ID: [id number] Artie Preston MD - Kendal Palmer PT P - plf Job ID: [id number] Document ID: [id number] documented in this encounter Plan of Treatment Not on file documented as of this encounter Visit Diagnoses Not on filedocumented in this encounter Care Teams Annealer Helper Relationship Specialty Start Date End Date Jason Batres MD [address] [place] [address] [phone] PCP - General 08/13/08 05/24/11 documented as of this encounter
--- OUTSIDE RECORDS SUMMARY | 2024-02-28 16:56 | XMS_ITS | Encounter Summary ---
Author Organization [facility] Address [address] [place] [address] Care Team Providers Care Toolmaker Name Role Phone Jason Batres MD Primary Care Provi margarita Encounter Details Date Type Department Care Team (Late st Contact Info) Description 08/13/2008 12:27 EDT - 08/13/2008 23:59 EDT Hospital Encounter [facility] - Medical Office Building [phone] Jason Batres MD [address] [place] [address] [phone] Discharge Disposition: Home or Self Care Social [...] Code Departure Means Destination Home or Self Long Term documented in this encounter Progress Notes * Inpatient, Physician - 07/02/2009 0238 EDT * Inpatient, Physician - 07/02/2009 0235 EDT documented in this encounter Plan of Treatment Not on file documented as of this encounter Visit Diagnoses Not on filedocumented in this encounter Care Teams Toolmaker Relationship Specialty Start Date End Date Jason Batres MD [address] [place] [phone] PCP - General 08/13/08 05/24/11 documented as of this encounter
--- OUTSIDE RECORDS SUMMARY | 2024-02-28 16:56 | XMS_ITS | Encounter Summary ---
Author Organization [facility] Address [address] [place] [address] Care Team Providers Care Circuit Recorder Name Role Phone Jason Batres MD Primary Care Provi margarita Encounter Details Date Type Department Care Team (Late st Contact Info) Description 04/30/2007 Results Only [facility] - Maple conversion [address] [place] [address] Jason Batres MD [address] [place] [address] [phone] Social History Tobacco Use Types Packs/Day Years [...] Date/Time Associated Diagnosis Comments T3, TOTAL Routine 04/30/2007 13:45 EST TSH Routine 04/30/2007 13:45 EST T4 FREE Routine 04/30/2007 13:45 EST documented in this encounter Results * TSH (04/30/2007 13:45 EST) TSH 2.84 0.35 - 5.00 uIU/mL [facility] 04/30/2007 13:4 5 EST 04/30/2007 18:00 EST us Jason Batres MD CHEMISTRY & BLOOD G ORDERABLES Final Result Performing Organization Address [facility] de Phone Number [facility] [address] [place] [address] * T3, TOTAL (04/30/2007 13:45 EST) T3, Total 108 60 - 181 ng/dL [facility] 04/30/2007 13:4 5 EST 04/30/2007 18:00 EST us Jason Batres MD CHEMISTRY & BLOOD G ORDERABLES Final Result Performing Organization Address [facility] Phone Number [facility] [address] [place] [phone] * T4 FREE (04/30/2007 13:45 EST) Free T4 1.0 0.8 - 1.8 ng/dL [facility] 04/30/2007 13:4 5 EST 04/30/2007 18:00 EST us Jason Batres MD CHEMISTRY & BLOOD G ORDERABLES Final Result Performing Organization Address [facility] de Phone Number [facility] [address] [place] [phone] documented in this encounter Visit Diagnoses Not on filedocumented in this encounter Care Teams Circuit Recorder Relationship Specialty Start Date End Date Jason Batres MD [address] [place] [address] [phone] PCP - General 08/13/08 05/24/11 documented as of this encounter
--- OUTSIDE RECORDS SUMMARY | 2024-02-28 16:56 | XMS_ITS | Encounter Summary ---
Author Organization [facility] Address [address] [place] [address] Care Team Providers Care Ship Construction Teacher Name Role Phone Jason Batres MD Primary Care Provi margarita Reason for Referral * Radiology Services (Routine/Next Available) - Closed Specialty Diagnoses / Procedures [facility] Referred To Contact Diagnoses Hip pain, left Procedures HIP UNILATERAL 2 OR MORE VIEWS Jason Batres MD Phone: tel: fax: Referral ID Status Reason Start Date Expiration Date Visits Re quested Visits Authorized [id number] Closed 01/22/2013 1 1 Reason for Visit * Reason Comments Hip Pain worse in the past ye ar. Encounter Details Date Type Department Care Team (Late st Contact Info) Description 01/22/2013 10:00 EST Office Visit Jason Batres MD, PC [address] [place] [address], [place] [phone] Jason Batres MD [address] [place] [address] [phone] Hip pain, left (Primary Dx); Fatigue Social History Tobacco Use Types Packs/Day Years [...] Sign Reading Time Taken Comments Blood Pressure 116/82 01/22/2013 0949 EST Pulse 100 01/22/2013 0949 EST Temperature 36.6 ??C (97.8 ??F) 01/22/2013 0949 EST Respiratory Rate - - Oxygen Saturation 98% 01/22/2013 0949 EST Inhaled Oxygen Concentration - - Weight 118.3 kg (260 lb 12.8 oz) 01/22/2013 0949 EST Height - - Body Mass Index - - documented in this encounter Patient Instructions * Patient Instructions* Jason Batres MD - 01/22/2013 10:25 EST GET YOUR X-RAY TODAY AT [facility] WE WILL CALL YOU WITH THE RESULTS IN 1-2 DAYS WE CAN THEN SET YOU UP A VISIT WITH ORTHOPEDICS WE CAN SET IT UP WITH DR. PACHECO'S OFFICE BUT YOU WILL START WITH SEEING HIS PHYSICIANS PEST CONTROL SUPERVISOR OR NURSE PRACTITIONER I ALSO MANAV LABS TODAY TO CHECK YOUR THYROID FUNCTION- WE WILL CALL ABOUT THESE WELL documented in this encounter Progress Notes * Jason Batres MD - 01/22/2013 1026 EST Subjective: Patient ID: Jeff Scott is an 52 y.o. male. Chief Complaint Patient presents with ??? Hip Pain worse in the past year. HPI Jeff is here for left hip pain. 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 It has always hurt since then but not constantly. It would hurt when theweather changed. But over the last year- it had been getting worse. He now has a constant pain in the hip as well as worse pain when he moves a certain way. It hurts when he sleeps and he has to elevate it. He uses 800 mg of ibuprofen PRN. His brother had surgery with Dr. Pacheco and he would like to see him if possible. He is tired all the time. He was told by a friend of his [id number] who is a doctor that he should be on a different thyroid medication (? [place] thyroid). He does not ant a flu vaccine. He sees [facility] endocrinology but I do not think he has been back in over a year. Social Current Outpatient Prescriptions on File Prior to Visit Medication Status Sig Dispense Refill ??? ibuprofen (ADVIL) 200 mg tablet Active Take 4 Tabs by mouth 3 times daily as needed. ??? levothyroxine (SYNTHROID) 112 mcg tablet Active Take 112 mcg by mouth daily. No current facility-administered medications on file prior to visit. No Known Allergies Review of Systems Constitutional: Positive for malaise/fatigue. - See HPI Objective: BP 116/82 Pulse 100 Temp(Src) 36.6 ??C (97.8 ??F) (Tympanic) Wt 118.298 kg (260 lb 12.8 oz) SpO2 98% Physical Exam Constitutional: He appears well-developed and well-nourished. Musculoskeletal: Left hip: He exhibits decreased range of motion (guards it and moves slowly , pain with internal rotation). He exhibits no tenderness and no bony tenderness. Assessment: Plan: Jeff was seen today for hip pain. Diagnoses and associated orders for this visit: Hip pain, left - HIP UNILATERAL 2 OR MORE VIEWS - If it does show osteoarthritis, will refer to ortho for eval - Could also try PT but he would need to keep going as I think with his memory he would forget to do exercises at home. Fatigue - TSH - Hemagram - Comprehensive Metabolic Panel (CMP) Jason Batres MD documented in this encounter Plan of Treatment Not on file documented as of this encounter Procedures Procedure Name Priority Date/Time Associated Diagnosis Comments HIP UNILATERAL 2 OR MORE VIEWS Routine 01/22/2013 11:19 EST Hip pain, left COMPLETE BLOOD COUNT Routine 01/22/2013 10:25 EST Fatigue TSH Routine 01/22/2013 10:25 EST Fatigue COMPREHENSIVE METABOLIC PANEL (CMP) Routine 01/22/2013 10:25 EST Fatigue documented in this encounter Results * HIP UNILATERAL 2 OR MORE VIEWS (01/22/2013 11:19 EST) Anatomical Region Laterality Modality Other 01/22/2013 11:1 9 EST 01/22/2013 12:00 EST Narrative 01/22/2013 12:00 EST HIP UNILATERAL 2 OR MORE VIEWS ??01/22/2013 11:19 AM Signs and Symptoms/Comments: ??719.45-Pain in joint, pelvic region and [id number]; left hip pain Comparison: None Available Technique: 2 views of the left hip AP and frog-leg lateral Findings: No acute fracture or dislocation. There is moderate to severe degenerative change of the femoral acetabular joint with marked apical joint space narrowing. There is subchondral sclerosis of the superior acetabulum and the apical femoral head, as well as moderate to severe osteophytosis of the acetabular rim and femur. A single knot of increased periarticular opacity is noted inferior to the femoral head and likely represents focus of soft tissue calcification. The soft tissues are otherwise unremarkable. Scattered surgical clips are seen through the medial left thigh Impression: 1. No acute fracture or dislocation 2. Marked apical joint space narrowing of the left femoral acetabular joint with associated subchondral sclerosis of the femur and acetabulum 2. Single stable periarticular opacity inferior to the femoral head representing focus of soft tissue calcification ?? I have personally reviewed the images and the above interpretation and agree with the findings. Procedure Note Franco Prabhakar MD - 01/22/2013 HIP UNILATERAL 2 OR MORE VIEWS 01/22/2013 11:19 AM Signs and Symptoms/Comments: 719.45-Pain in joint, pelvic region and [id number]; left hip pain Comparison: None Available Technique: 2 views of the left hip AP and frog-leg lateral Findings: No acute fracture or dislocation. There is moderate to severe degenerative change of the femoral acetabular joint with marked apical joint space narrowing. There is subchondral sclerosis of the superior acetabulum and the apical femoral head, as well as moderate to severe osteophytosis of the acetabular rim and femur. A single knot of increased periarticular opacity is noted inferior to the femoral head and likely represents focus of soft tissue calcification. The soft tissues are otherwise unremarkable. Scattered surgical clips are seen through the medial left thigh Impression: 1. No acute fracture or dislocation 2. Marked apical joint space narrowing of the left femoral acetabular joint with associated subchondral sclerosis of the femur and acetabulum 2. Single stable periarticular opacity inferior to the femoral head representing focus of soft tissue calcification I have personally reviewed the images and the above interpretation and agree with the findings. Jason Batres MD IMG DIAGNOSTIC IMAG ING ORDERABLES Final Result * (ABNORMAL) COMPREHENSIVE METABOLIC PANEL (CMP) (01/22/2013 10:25 EST) Potassium 4.6 3.5 - 5.0 mEq/L [facility] Sodium 136 136 - 145 mEq/L [facility] Chloride 96 96 - 110 mEq/L [facility] CO2 26 24 - 32 mEq/L [facility] Total Alkaline Phosphatase 117 38 - 126 U/L [facility] Bilirubin, Total 0.7 0.2 - 1.3 mg/dl [facility] AST 65(H) 15 - 46 U/L [facility] ALT 69 21 - 72 U/L [facility] Albumin 4.6 3.4 - 4.9 g/dl [facility] Total Protein 7.5 6.5 - 8.3 g/dl [facility] Creatinine 0.60(L) 0.66 - 1.25 mg/dl [facility] GFR, Calculated >60 >60 ml/min/1.7 3m2 [facility] BUN 12 10 - 26 mg/dl [facility] Calcium 9.6 8.5 - 10.5 mg/dl [facility] Calculated Calcium 9.4 8.5 - 10.5 mg/dl [facility] Glucose, Serum 423(H) 70 - 100 mg/dl [facility] Fasting? Unknown [facility] Blood specimen (specimen) 01/22/2013 10:25 EST 01/22/2013 18:13 EST Jason Batres MD CHEMISTRY & BLOOD G ORDERABLES Final Result Performing Organization Address [facility] Co de Phone Number [facility] [address] [place] [address] * HEMAGRAM (01/22/2013 10:25 EST) WBC 7.08 4.0 - 10.4 K/cmm [facility] RBC 4.87 4.36 - 5.78 M/cmm [facility] Hemoglobin 15.4 13.8 - 17.3 gm/dl [facility] HCT 45.7 39.5 - 50.2 % [facility] MCV 94 81 - 95 fl [facility] MCH 31.6 27.6 - 33.0 pg [facility] MCHC 33.6 32.8 - 36.4 gm/dl [facility] PLT 175 141 - 320 K/cmm [facility] RDW-CV 13.3 11.8 - 14.1 % [facility] Blood specimen (specimen) 01/22/2013 10:25 EST 01/22/2013 18:13 EST us Jason Batres MD HEMATOLOGY & PF4 OR DERABLES Final Result Performing Organization Address [facility] Co de Phone Number [facility] [address] [place] [address] * TSH (01/22/2013 10:25 EST) TSH 0.87 0.35 - 5.00 uIU/ml [facility] Blood specimen (specimen) 01/22/2013 10:25 EST 01/22/2013 18:13 EST us Jason Batres MD CHEMISTRY & BLOOD G ORDERABLES Final Result Performing Organization Address [facility] Co de Phone Number [facility] [address] [place] [address] documented in this encounter Visit Diagnoses Diagnosis Hip pain, left- Primary Pain in joint, pelvic region and thigh Fatigue Other malaise and fatigue documented in this encounter Care Teams Ship Construction Teacher Relationship Specialty Start Date End Date Jason Batres MD [address] [place] [address] PCP - General 07/27/11 12/31/23 documented as of this encounter
--- OUTSIDE RECORDS SUMMARY | 2024-02-28 16:56 | XMS_ITS | Encounter Summary ---
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[facility]) documented in this encounter Results * T4 FREE (02/25/2013 11:30 EST) Free T4 1.3 0.8 - 1.8 ng/dL [facility] Blood specimen (specimen) 02/25/2013 11:30 EST 02/25/2013 13:02 EST us Nikia Gómez MD CHEMISTRY & BLOOD GAS ORDER ELIU Final Result [facility] [address] [place] [address] documented in this encounter Visit Diagnoses Diagnosis Panhypopituitarism ([facility]-CMS) Panhypopituitarism documented in this encounter Care Teams Etl Analyst Developer Relationship Specialty Start Date End Date Jason Batres MD [address] [place] [phone] PCP - General 07/27/11 12/31/23 documented as of this encounter
--- OUTSIDE RECORDS SUMMARY | 2024-02-28 16:56 | XMS_ITS | Encounter Summary ---
Author Organization [facility] Address [address] [place] [address] Care Team Providers Care Unit Clerk Name Role Phone Jason Batres MD Primary Care Provi margarita Encounter Details Date Type Department Care Team (Late st Contact Info) Description 01/13/2013 Phlebotomy Only [address] [address] Personnel Psychologist, Outpatient Social History Tobacco Use Types Packs/Day [...] on filedocumented in this encounter Care Teams Unit Clerk Relationship Specialty Start Date End Date Jason Batres MD [address] [place] [phone] PCP - General 07/27/11 12/31/23 documented as of this encounter
--- OUTSIDE RECORDS SUMMARY | 2024-02-28 16:56 | XMS_ITS | Encounter Summary ---
Author Organization [facility] Address [address] [place] [address] Care Team Providers Care Hat Lining Blocker Name Role Phone Unknown, Provider MD Primary Care Provider Unava ilable Reason for Visit * Reason Comments Follow-up Encounter Details Date Type Department Care Team (Latest Contact Info) Description 05/26/2011 15:[address] [facility] Rehabilitation Therapy [address] [id number] Jeff Camargo MD [address] [place] [address] [address] [place] [address] Craniopharyngioma (CMS-HCC) (HCC-CMS); Late effect of intracranial injury without mention [...] * Patient Instructions* Jeff Camargo MD - 05/26/2011 15:57 EDT 1) Ordering Neuropsych testing to evaluate cognition, processing, problem solving, visuo-spatial etc. 2) Once we have results, we can proceed with vocational rehabilitation to see what Jeff might be able to do. documented in this encounter Progress Notes * Jeff Camargo MD - 05/26/2011 6736 EDT Jeff is a 50-year-old gentleman whom I have not seen in about 2 years now. 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 He had corrective eye surgery back in April of 2009 and passed his driving test back in January of 2011. He at this point is interested in discussing the possibility of getting back to work. I had a note from his , Nguyen, today discussing her ongoing observations of Jeff's cognitive deficits. She talks about continued disorganization, lack of memory. He continues to have some trouble with problem solving, following through with tasks and initiation. He even needs to be reminded about personal hygiene as well. Despite this, Jeff is doing better than he has in the last couple of years and is interested in pursuing the possibility of getting back to work. Jeff reports that his vision is doing very well. He does have to wear prescription glasses but no longer wears prism glasses. He reports that his activities around the house right now include doing a lot of yardwork. He has also helped his neighbor, Artie Blanc, with some project around his house. Nguyen's note to me reports that Artie told her that Jeff needs continuous supervision to finish tasks; otherwise, he just stops and walks way. He remains easily distracted. MEDICATIONS: At this point include only Synthroid and Advil. OBJECTIVE: Exam reveals conjugate gaze. He had fairly intact extraocular muscles noted. He has no focal strength or sensory deficits. Throughout our evaluation, he demonstrated continued difficulty with memorizing things. I introduced him to a student who is following me and he forgot her name repeatedly through our visit today. He had no recollection of who had done his eye surgery. In summary, Jeff Scott is a very pleasant 50-year-old gentleman with a history of craniopharyngioma tumor resection. He presents with obvious ongoing cognitive executive dysfunction; however, he is interested in pursuing the possibility of return to some level of employment even if it is a very simple job. In that light, I would like to get him reevaluated with neuro psych testing and then look at transitioning him into vocational rehabilitation. I have some skepticism that with Jeff's ongoing disorganization that he would ever be able to hold down a job without somebody constantly supervising him to help him follow through with tasks; however, we will go ahead and get started with this process and see how it goes. I counseled Jeff in that regard. Referral was made for the neuro psych testing and then I will see him back in a couple months. I spent half an hour with Jeff, entire time [id number], at least 20 minutes on education and coordination of care. 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 Patient Stopped Taking 05/26/2011 venlafaxine (EFFEXOR XR) 75 mg XR capsule Take 75 mg by mouth daily. Patient Stopped Taking 05/26/2011 erythromycin (ROMYCIN) ophthalmic ointment Place into the right eye. Apply ribbon of ointment in lower eyelid every 4 hours while awake Patient Stopped Taking 04/13/2010 05/26/2011 acetaminophen (TYLENOL 8 HOUR) 650 mg CR tablet Take 650 mg by mouth daily. Patient Stopped Taking 05/26/2011 documented as of this encounter Care Teams Hat Lining Blocker Relationship Specialty Start Date End Date Unknown, Provider, PCP - General 05/25/11 07/26/11 documented as of this encounter
--- OUTSIDE RECORDS SUMMARY | 2024-02-28 16:56 | XMS_ITS | Encounter Summary ---
Author Organization [facility] Address [address] [place] [address] Care Team Providers Care Yarn Hauler Name Role Phone Jason Batres MD Primary Care Provi margarita Reason for Referral * Consult (Routine) - Closed Specialty Diagnoses / Procedures [facility]erred To Contact Diagnoses Diabetes mellitus type II, controlled ([facility]) Jason Batres MD Phone: tel: fax: Referral ID Status Reason Start Date Expiration Date V isits Requested Visits Authorized [id number] Closed Specialty Services Required 09/11/2013 1 1 Question Answer What areas would you like the CHT to focus on? Diabetic Education - new - A1C 12.7, memory loss secondary to cranipharyngioma surgery If Yes to Diabetic Education, Please Select from the Following (If HBA1C is greater than 8 refer to Endocrinology ([id number]) for CDE Support instead): New Diagnosis, HBA1C Above 8 Patient's Weight (kg) (1 lb = 0.4536 kg): 117.391 Patient's Height (cm) (1 in = 2.54 cm): 188 Comments As we discussed in your visit today, someone will be contacting you from the Community [facility] Team to schedule an appointment with you. If you do not hear from the CHT within a week please call the Community Health Team at [phone]. Reason for Visit * Reason Comments Diabetes Encounter Details Date Type Department Care Team (Late st Contact Info) Description 09/11/2013 13:30 EDT Office Visit Jason Batres [facility] [address] [place] [address] Jason Batres MD [address] [place] [phone] Diabetes mellitus type II, controlled (CMS-[facility]) ([facility]) (Primary Dx) Social History Tobacco Use Types [...] Sign Reading Time Taken Comments Blood Pressure 126/88 09/11/2013 1324 EDT Pulse 96 09/11/2013 1324 EDT Temperature 36.4 ??C (97.6 ??F) 09/11/2013 1324 EDT Respiratory Rate - - Oxygen Saturation 97% 09/11/2013 1324 EDT Inhaled Oxygen Concentration - - Weight 117.4 kg (258 lb 12.8 oz) 09/11/2013 1324 EDT Height 188 cm (6' 2) 09/11/2013 1324 EDT Body Mass Index 33.23 09/11/2013 1324 EDT documented in this encounter Patient Instructions * Patient Instructions* Jason Batres MD - 09/11/2013 13:52 EDT Images from the original note were not included. 1. Your sugar at [facility] was high at 293. 2. Today, your hemoglobin A1C is 12.7 (normal is under 6.5). This second test confirms the diagnosis of diabetes 3. You need to work hard over the next month on changing your diet- less sugar/carbohydrates. [place]. 4. We will also refer you to the dietitian. They will be calling you within 1-2 weeks 5. I want to see you back in a month - if the numbers are still high - we can talk further about medications (pills) [facility] Patient Instructions Hemoglobin A1c: About This Test What is it? Hemoglobin A1c is a blood test that checks your average blood sugar level over the past 2 to 3 months. This test also is called a glycohemoglobin test or an A1c test. Why is this test done? The A1c test is done to check how well your diabetes has been controlled over the past 2 to 3 months. Your doctor can use this information to adjust your medicine and diabetes treatment, if needed. How can you prepare for the test? You do not need to stop eating before you have an A1c test. This test can be done at any time during the day, even after a meal. What happens during the test? The health professional taking a sample of your blood will: ?? Wrap an elastic band around your upper arm. This makes the veins below the band larger so it is easier to put a needle into the vein. ?? Clean the needle site with alcohol. ?? Put the needle into the vein. ?? Attach a tube to the needle to fill it with blood. ?? Remove the band from your arm when enough blood is collected. ?? Put a gauze pad or cotton ball over the needle site as the needle is removed. ?? Put pressure on the site and then put on a bandage. What else should you know about the test? The test result is usually given as a percentage. The normal range for A1c is 4.5% to 5.7%. Borderline is 5.8-6.5. The A1c test result also can be used to find your estimated average glucose, or eAG. Your eAG and A1c show the same thing in two different ways. They both help you learn more about your average bloodsugar range over the past 2 to 3 months. Where can you learn more? Go to www.[email or web address].com.net/fahc Enter U216 in the search box to learn more about Hemoglobin A1c: About This Test. ?? [id number] [facility]. Care instructions adapted under license by [facility] This care instruction is for use with your licensed healthcare professional. If you have questions about a medical condition or this instruction, always ask your healthcare professional. [facility] disclaims any warranty or liability for your use of this information. Content Version: 10.0.876181; Last Revised: April 23, 2012 documented in this encounter Progress Notes * Jason Batres MD - 09/11/2013 7807 EDT Subjective: Patient ID: Jeff Scott is an 52 y.o. male. Chief Complaint Patient presents with ??? Diabetes HPI Jeff is here to follow up on an elevated blood sugar that was found by his senior project engineer. Looking back he had a very elevated blood sugar in January that I ordered but I do not see that I followed up with him after this. He then had labs drawn at [facility] and his FS was almost 200. He does sayhe has been very thirsty and drinking a lot of water. I checked an A1C today and it was 12.7. It is hard to get a history from Jeff given his short term memory loss. He does ask the same question several times in a row. I do remember his family has been concerned about his oral intake in thepast and he mentions to me that his family hides ice cream from him and he is not allowed to have it. So he does not think he eats many sweets or candy or carbohydrates. But he does say he is addicted to soda. He probably has 3-5 two liter bottles of soda per day. He does not always have money to buy these, but if he does he buys a lot of soda. He drinks root beer, orange soda, pepsi, and sprite. We talked some about why he may have diabetes as Jeff asked this on several occasions. He was alsoworried that his not find out he is drinking so much soda. I told him I would start with medications - but he says he does not want to take medications and thinks he can cut back on the soda to almost none (although he says he will need some). He was most worried about injections and I told him we could use oral medications before injections. He tells me he does get emotional sometimes and if his children or give him a hard time about his eating - he starts crying Social Current Outpatient Prescriptions on File Prior to Visit Medication Sig Dispense Refill ??? ibuprofen (ADVIL) 200 mg tablet Take 4 Tabs by mouth 3 times daily as needed. ??? levothyroxine (SYNTHROID) 112 mcg tablet Take 112 mcg by mouth daily. No current facility-administered medications on file prior to visit. No Known Allergies Review of Systems Genitourinary: No erectile dysfunction Says his libido is OK but not great Endo/Heme/Allergies: Low testosterone- does not want treatment - See HPI Objective: BP 126/88 Pulse 96 Temp(Src) 36.4 ??C (97.6 ??F) (Tympanic) Ht 188 cm (74) Wt 117.391 kg (258 lb 12.8 oz) BMI 33.21 kg/m2 SpO2 97% Physical Exam Constitutional: He appears well-developed and well-nourished. Neurological: Short term memory loss -asks questions repeatedly Assessment: Plan: Diabetes Confirmed with the A1C of 12.7 Should start metformin at least (nad could even start lantus)- but he wants to work on diet I also think it will be better to start medications and discuss this when his is here secondary to his memory loss So I did not start anything - but wrote down that he should work on the diet (he would not let me write down no soda as he does not want his to see this) Will refer to CHT as well follow up in one month with present I spent 30 minutes of face-face time with the patient, over half of it was in counseling Jason Batres MD * Mena Gomez - 09/10/2013 7424 EDT Health Maintenance Topic Date Due ??? Influenza (Adult/pediatric) Immunization: Seasonal 10/03/2013 ??? Lipid Profile Screening (Cholesterol) due ??? Behavioral Health Screen 1973 ??? Pertussis (Adult) Immunization due ??? Tetanus (Adult) Immunization due ??? Hiv Screening due ??? Preventative Care Visit 12/14/1979 ??? Colon Cancer Screening Colonoscopy due documented in this encounter Plan of Treatment Scheduled Referrals Name Type Priority Associated Diagnoses Orde r Schedule AMB CONS/FOLLOW UP [facility] TEAM Outpatient Referral Routine Diabetes mellitus type II, controlled ([facility]) ([facility]) Ordered: 09/11/2013 documented as of this encounter Visit Diagnoses Diagnosis Diabetes mellitus type II, controlled ([facility])- Primary Type II or unspecified type diabetes mellitus without mention of complication, not stated as uncontrolled documented in this encounter Care Teams Yarn Hauler Relationship Specialty Start Date End Date Jason Batres MD [address] [place] [id number] PCP - General 07/27/11 12/31/23 documented as of this encounter
--- OUTSIDE RECORDS SUMMARY | 2024-02-28 16:56 | XMS_ITS | Encounter Summary ---
Author Organization [facility] Address [address] [place] [address] Care Team Providers Care Family Nurse Practitioner Name Role Phone Jason Batres MD Primary Care Provi margarita Encounter Details Date Type Department Care Team (Late st Contact Info) Description 01/27/2013 Abstract [facility] Total Joint Program - [address] [place], [place] [id number] Woody Hawk, PA-C [address] [facility] [place] [address] Social History Tobacco Use Types Packs/Day Years [...] on filedocumented in this encounter Care Teams Family Nurse Practitioner Relationship Specialty Start Date End Date Jason Batres MD [address] [place], [place] [id number] PCP - General 07/27/11 12/31/23 documented as of this encounter
--- OUTSIDE RECORDS SUMMARY | 2024-02-28 16:56 | XMS_ITS | Encounter Summary ---
Author Organization [facility] Address [address] [place] [address] Care Team Providers Care Pomology Teacher Name Role Phone Jason Batres MD Primary Care Provi margarita Encounter Details Date Type Department Care Team (Late st Contact Info) Description 12/17/2007 Before PRISM Converted Visit (Maple) [facility] - Maple conversion [address] [place] [address] Jeff Camargo MD [address] [place] [id number] Social History Tobacco Use Types Packs/Day Years Used Date Smoking Tobacco: Never Assessed Sex and Gender Information Value Date Recorded Sex Assigned at Male 06/12/2023 11:45 EDT Legal Sex Male 18:05 EST Gender Identity Male 10/03/2019 21:06 EDT Sexual Orientation Straight 06/12/2023 11 :45 EDT documented as of this encounter Progress Notes * Jeff Camargo MD - 09/26/2008 0539 EDT PHYSICAL MEDICINE / REHABILITATION PROGRESS/FOLLOWUP NOTE - 12/17/2007 DATE OF SERVICE: 12/17/2007 ATTENDING PHYSICIAN: Jeff Camargo MD REFERRING PHYSICIAN: Jason Batres MD PRIMARY PHYSICIAN: Jason Batres MD REASON FOR EVALUATION/FOLLOWUP TODAY History of intracranial injury secondary to tumor resection with ongoing high level cognitive dysfunction and lack of initiation. HISTORY OF PRESENT ILLNESS Jeff Scott is a 47 gentleman with above mentioned history of craniopharyngioma resection with ongoing cognitive and initiation deficits after last visit on October 24, 2007, we trialed Ritalin 10 mg daily. He presents with his today to review the results of that medicine trail. Jeff reports that he has had increase in his energy to some extent and has had a slightly increase in thoughts about being more active, but has not actually been more active. He has been thinking a bit more about the activities that he needs to do, but does not actually get up and do them, hwife reports that she leaves him lists of things to do and he gets to very little of it. He has not noticed any side effects from Ritalin such as insomnia or decreased appetite. PHYSICAL EXAMINATION exam, Mr. Scott was pleasant and cooperative, as always. He has no focal motor deficits. This is inexclusion of his ocular disturbances for which he is still wearing bilateral prism lenses. His speech wasappropriate though his insight was somewhat impaired. SUMMARY Mr. Scott has had some subtle changes associated with the Ritalin, but no actual functional or practical changes. I therefore am increasing the dose to 20 mg daily. I reviewed with him loss of appetite and insomnia side effects that are possible. He follow up with me in a couple of months to reviewresponse to the increased dose. He should certainly call if there are any negative side effects from it. I spent 15 minutes with Jeff and his today, entire time face to face, vast majority on education and counseling. Signed by Jeff Camargo MD 12/19/2007 16:18 Jeff Camargo MD - Jeff Camargo MD - [place] Job ID: [id number] Doc ID: [id number] cc: Jason Batres MD documented in this encounter Plan of Treatment Not on file documented as of this encounter Visit Diagnoses Not on filedocumented in this encounter Care Teams Pomology Teacher Relationship Specialty Start Date End Date Jason Batres MD [address] [place] [phone] PCP - General 08/13/08 05/24/11 documented as of this encounter
--- OUTSIDE RECORDS SUMMARY | 2024-02-28 16:56 | XMS_ITS | Encounter Summary ---
Author Organization [facility] Address [address] [place] [address] Care Team Providers Care Marklogic Developer Name Role Phone Jason Batres MD Primary Care Provi margarita Reason for Referral * Consult (Routine/Next Available) - Specialty Report Received Specialty Diagnoses / Procedures [facility]erred To Contact Orthopedic Surgery Diagnoses Left hip pain Osteoarthritis of left hip Adilson Carrillo, RN Phone: tel: fax: Referral ID Status Reason Start Date Expiration Date Visits Requested Visits Authorized [id number] Specialty Report Received Specialty Services Required 3 1 1 Question Answer Reason for Request: moderate-severe osteoarthritis of left hip. Comments Requesting Dr. Jones Reason for Visit * Reason Onset Date Comments Referral Request 01/23/2013 Hip Pain 01/23/2013 Encounter Details Date Type Department Care Team (Late st Contact Info) Description 01/23/2013 Orders Only Jason Batres MD, [facility] [address] [place], [place] [address] Adilson Carrillo, JARVIS [address] [facility] [address] [place] [id number] Left hip pain (Primary Dx); Osteoarthritis of left hip Social History Tobacco Use [...] as of this encounter Progress Notes * Adilson Alvarez LPN - 01/23/2013 1610 EST Patient notified of lab and xray results, referral placed for patient to see ortho for moderate-severe osteoarthritis of his left hip. Patient is aware of his [facility] on SundayJanuary 27 at 0925 arrival for a 0945 appointment. ADILSON ALVAREZ LPN documented in this encounter Plan of Treatment Scheduled Referrals Name Type Priority Associated Diagnoses Order Schedule AMB CONSULT ORTHOPEDICS Outpatient Referral Routine Left hip pain Osteoarthritis of left hip Ordered: 01/23/2013 documented as of this encounter Visit Diagnoses Diagnosis Left hip pain- Primary Pain in joint, pelvic region and thigh Osteoarthritis of left hip Osteoarthrosis, unspecified whether generalized or localized, pelvic region and thigh documented in this encounter Care Teams Marklogic Developer Relationship Specialty Start Date End Date Jason Batres MD [address] [place] [address] PCP - General 07/27/11 12/31/23 documented as of this encounter
--- OUTSIDE RECORDS SUMMARY | 2024-02-28 16:56 | XMS_ITS | Encounter Summary ---
Author Organization [facility] Address [address] [place] [address] Care Team Providers Care Paper Cutter Operator Name Role Phone Jason Batres MD Primary Care Provi margarita Reason for Visit * Reason Comments Hip Pain left Encounter Details Date Type Department Care Team (Late st Contact Info) Description 01/27/2013 9:45 EST Office Visit [facility] Total Joint Program [place] [address] Woody Hawk, DELOR[facility]C [facility] [address] Osteoarthritis of left hip (Primary Dx); Left hip pain Social History Tobacco Use Types Packs/Day [...] - - Weight 120.2 kg (265 lb) 01/27/2013 0943 EST Height 188 cm (6' 2) 01/27/2013 0943 EST Body Mass Index 34.02 01/27/2013 0943 EST documented in this encounter Patient Instructions * Patient Instructions* Woody Swanson - 01/27/2013 10:25 EST If no relief from the Ibuprofen prior to your next appointment call and schedule with a surgeon. INSTRUCTIONS FOR HIP ARTHRITIS CARE: 1) Home exercise program including low impact aerobic exercise - www.Rapp IT Upinfo.org Walking for exercise three times a week if tolerable (cycling or swimming as alternatives) 2) Modest weight reduction (5% goal) if your weight is more than 10% above your ideal body weight... Discuss with your primary care physician. 3) May use over the counter arthritis pain relievers such as Acetaminophen and/or Aleve, taken withfood in your stomach & do not exceed dosing written on the container. Be aware of the potentialside effects! IBUPROFEN TRIAL: 800mg every 8 hours with food for two weeks. Continue taking until follow up appointment if this gives you relief. 4) Consider a hip injection here in my office if the medication(s) do not address your symptoms or you have side effects that interfere with taking the arthritis pain relievers 5) Consider calling for a follow-up visit if your symptoms of pain and/or limited functional are not adequately addressed with the non-operative therapies described above. 6) Follow-up with your Primary Care Provider for routine health maintenance 7) I encourage you to learn about your joint problems and here are suggested high quality on-line information sources: www.orthoinfo.aaos.org/informedPatient.cfm - Review total hip module www.fletcherallen.org/jointcare www.aaks.org 8) I encourage you to learn about your joint problems and recommend this book: Heal Your Hips: How to Prevent Hip Surgery and What to Do If You Need It by Dr. Tommy Cavanaugh documented in this encounter Progress Notes * Woody Swanson - 01/27/2013 1026 EST New Hip pain visit: Chief Complaint Patient presents with ??? Hip Pain left Patient Active Problem List Diagnosis ??? 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 Craniopharyngioma ??? Memory loss due to medical condition ??? Hypothyroidism HPI: Jeff Scott is a 52 y.o. patient whom I am seeing as new patient from Dr. Batres. 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 He reports that he use to run and/or swim on his lunch breaks in [place]. He reports that after running he wouldhave an intense throb to the left leg. He reports 15 years ago he went to see immediate health careand was told that he had moderate to severe osteoarthritis of the left hip joint. He reports they told him he was too young to have anything done with his hip. He reports over the last 15 years he istaking ibuprofen off and on for his discomfort. He is here today because his pain is constant and limiting. The pain is described as a throbbing and sharp groin lateral thigh and the buttock area. The pain is described as constant. He will occasionally have a limp. Weather, playing men's league hardball, going upstairs, and walking will cause some discomfort. He will use 800 mg of ibuprofen once to twicea day. He reports that he has fairly good relief with his ibuprofen dose. He also will sleep with apillow under his legs. He reports he does gentle stretching daily and will walk daily for exercise. Outside reports reviewed: office notes Comprehensive health database form (including 14 system review) was completed with the patient, reviewed, signed and scanned into EMR system. Medication reconciliation was completed. Past Medical History: reviewed as documented in [facility]. Past Surgical History Procedure Laterality Date ??? Brain surgery s/p tumor Occupation: None. Used to work for [employer]. History Social History ??? Marital Status: Spouse Name: N/A Number of Children: N/A ??? Years of Education: N/A Occupational History ??? Not on file. Social History Main Topics ??? Smoking status: Never Smoker ??? Smokeless tobacco: Not on file ??? Alcohol Use: No ??? Drug Use: ??? Sexually Active: Other Topics Concern ??? Not on file Social History Narrative ??? No narrative on file PHYSICAL EXAM: A Level 5 single system orthopedic exam was conducted on both lower extremities. This included: General: Well-appearing male in no acute distress. Mood and affect appropriate. Patient does reportsome short-term memory loss secondary to a brain tumor. He does ask me 3 times during the visit of what my name was and if we had shaking hands. Vital Signs: Ht 188 cm (74) Wt 120.203 kg (265 lb) BMI 34.01 kg/m2 A and O x3. Station and Gait: Arises from seated position with localized pain. Gait is antalgic on symptomatic side. Lower extremity: Hip Non-tender about the bilateral greater trochanter. Non-tender in the bilateral groin and no masses are detected. right hip range of motion Active = passive ROM without pain at end range left hip range of motion Decreased and limited active = passive ROM with pain at end range bilateral hip strength: 4+/5 strength or better RT =LT Lower extremity: Knee Symmetric ROM of the knees and ankles. 4+/5 strength or better RT =LT Neurovascular: Light touch sensation intact Pulses: DP right +2 left +2 PT +2 left +2 Skin: intact without pathologic trophic changes & no pitting edema. Lymphadenopathy: none noted REVIEW OF IMAGING: Ortho AP pelvis and frog lateral view of hip are personally reviewed revealing: Kellgren-Renzo grade 3-4 left hip changes no other clinically significant abnormalities seen, normal soft tissue patterns Advanced imaging: none ASSESSMENT Moderate to severe osteoarthritis to the left hip causing discomfort. Patient Active Problem List Diagnosis ??? 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 Craniopharyngioma ??? Memory loss due to medical condition ??? Hypothyroidism MEDICAL DECISION-MAKING and PLAN: Patient Education: Over the course of today's office visit, we discussed the diagnosis, differential diagnosis, normalanatomy, the pathoanatomy and this patient???s pertinent comorbidities. We also discussed the spectrum of non-operative and operative treatment options using shared decision-making techniques, printed educational materials and/or A.A.O.S. online decision support tools. The patient's questions were solicited and responded to with the patient's verbalized satisfaction. Diagnostic: As a result of our discussion, we have agreed to proceed with the following diagnostic plan: Non-operative treatment plan: An appropriate informed choice non-operative treatment discussion was completed and we have collectively agreed to proceed with the following therapeutic plan: Continued activity modification to limit symptoms Patient is going to try scheduled dose of ibuprofen for the next 2 weeks. He will take 800 mg every8 hours with food. He will continue this dose until followup if give him lasting relief. Continue with gentle stretching and walking for exercise. Surgical Options: We discussed that he would be a candidate for a left total hip arthroplasty if his symptoms could not be controlled with a comprehensive non-operative management plan. Disposition: follow-up in [facility] in one month. Patient will call prior to appointment if he has no relief of his symptoms with the scheduled anti-inflammatory trial to make anappointment with a surgeon. documented in this encounter Plan of Treatment Not on file documented as of this encounter Visit Diagnoses Diagnosis Osteoarthritis of left hip- Primary Osteoarthrosis, unspecified whether generalized or localized, pelvic region and thigh Left hip pain Pain in joint, pelvic region and thigh documented in this encounter Care Teams Paper Cutter Operator Relationship Specialty Start Date End Date Jason Batres MD [address] [place] [address] PCP - General 07/27/11 12/31/23 documented as of this encounter
--- OUTSIDE RECORDS SUMMARY | 2024-02-28 16:56 | XMS_ITS | Encounter Summary ---
Author Organization [facility] Address [address] [place] [address] Care Team Providers Care Kiln Labourer Name Role Phone Jason Batres MD Primary Care Provi margarita Encounter Details Date Type Department Care Team (Late st Contact Info) Description 11/25/2012 Documentation Visit [facility] Memory Program - Medical Office Building [address] [place], [place] [id number] Sebastian Sheehan, PhD [address] [facility] Medical [facility] [address], [address] [place] [address] Social History Tobacco Use Types [...] as of this encounter Progress Notes * Jessica Greene - 11/25/2012 1617 EDT Received request from [facility] Dis[facility] Determination Services for SAQIB. The following was mailed to: [address] [facility] [place] [address] Sebastian Sheehan, Ph.D. Note of 09/15/2011 ADAMA documented in this encounter Plan of Treatment Not on file documented as of this encounter Visit Diagnoses Not on filedocumented in this encounter Care Teams Kiln Labourer Relationship Specialty Start Date End Date Jason Batres MD [address] [place] [address] PCP - General 07/27/11 12/31/23 documented as of this encounter
--- OUTSIDE RECORDS SUMMARY | 2024-02-28 16:56 | XMS_ITS | Encounter Summary ---
Author Organization [facility] Address [address] [place] [address] Care Team Providers Care Channeler Name Role Phone Jason Batres MD Primary Care Provi margarita Reason for Visit * Reason Comments Diabetes Encounter Details Date Type Department Care Team (Late st Contact Info) Description 03/24/2014 11:00 EST Office Visit [facility]res [facility] [address] [place], [place] [id number] Jason Batres MD [address] [place] [address] Diabetes mellitus type II, controlled (CMS-HCC) ([facility]) (Primary Dx) Social History Tobacco Use Types [...] Reading Time Taken Comments Blood Pressure 110/78 03/24/2014 1124 EST Pulse 91 03/24/2014 1124 EST Temperature 36.4 ??C (97.5 ??F) 03/24/2014 1124 EST Respiratory Rate - - Oxygen Saturation - - Inhaled Oxygen Concentration - - Weight 112.9 kg (249 lb) 03/24/2014 1124 EST Height - - Body Mass Index 31.97 11/11/2013 1040 EDT documented in this encounter Patient Instructions * Patient Instructions* Jason Batres MD - 03/24/2014 11:51 EST 1. supervisor front the glimeperide from the pharmacy and take a 2 mg pill twice per day - green pill 2. I am also increasing the metformin (you are already taking this) from 500 mg to 1000 mg.- white pill 3. Continue your levothyroxine once per day in the morning - pink pill 4. Diet - try wheaties, wheat chex, total instead of cheerios, as many vegetables as you want but minimize fruit. documented in this encounter Ordered Prescriptions Prescription Sig Dispense Quantity Refills Last Filled Start Date End Date glimepiride (AMARYL) 2 mg tablet Take 1 Tab by mouth daily. 60 Tab 3 03/24/2014 5 metFORMIN (GLUCOPHAGE) 1,000 mg tablet Take 1 Tab by mouth 2 times daily with breakfast and dinner. 60 Tab 3 03/24/2014 5 documented in this encounter Progress Notes * Jason Batres MD - 03/24/2014 1216 EST Subjective: Patient ID: Jeff Scott is an 53 y.o. male. Chief Complaint Patient presents with ??? Diabetes HPI Jeff is here to follow-up on his diabetes. I had seen him and started metformin. I discussed lantus given his A1C of 12.8, but his was not with him and so I was worried about starting this given his memory issues. He has been taking the metformin and also has been working on his diet and trying to drink less soda. He does eat four slices of bread per day and we also discussed other foods that he eats. He saw his gas check pad maker since I last saw him and they wanted him to add glipizide, but Jeff forgot about this and did not start it. He did show me a summary of the visit and he had good notes about his medication changes but still forgot. He tells me he did not think to let his know what happened at the visit. He has been taking his FS though, and they are running 200-250. He checks twice per day. He has hadhighs to 340 and once a reading in the AM of 120 but other than that the low is about 180. He has not had side effects from the metformin. We reviewed his recent MRI and he is happy that there is no recurrence and he needs to go back and have an annual MRI for another 2-3 years. Social Current Outpatient Prescriptions on File Prior to Visit Medication Sig Dispense Refill ??? blood glucose (FREESTYLE TEST) test strips 1 Strip by misc (non-drug; combo route) route 2 times daily. 100 Each 1 ??? blood glucose meter (FREESTYLE FREEDOM LITE) Test FS BID. 1 Each 0 ??? lancets Test BID. 100 Each 1 ??? levothyroxine (SYNTHROID) 112 mcg tablet Take 112 mcg by mouth daily. No current facility-administered medications on file prior to visit. No Known Allergies Review of Systems Respiratory: Negative for shortness of breath. Cardiovascular: Negative for chest pain. - See HPI Objective: BP 110/78 Pulse 91 Temp(Src) 36.4 ??C (97.5 ??F) (Tympanic) Wt 112.946 kg (249 lb) BMI 31.96 kg/m2 Physical Exam Constitutional: He appears well-developed and well-nourished. Cardiovascular: Normal rate and regular rhythm. No murmur heard. Pulmonary/Chest: Effort normal and breath sounds normal. No respiratory distress. Assessment: Plan: Diabetes Discussed dietary changes- more vegetables, less toast, carbs Continue to decrease soda He will try to change cereal to total or wheaties Will increase metformin to 1000 mg BID Also will add glipizide and I called this in for him I suggested he bring a copy of his after visit summary to Nguyen so she knows of these changes follow up in three months to check A1C again Jason Batres MD * Mena Gomez - 03/23/2014 1243 EST Health Maintenance Topic Date Due ??? Hepatitis C Screen due ??? Lipid Profile Screening (Cholesterol) due ??? Behavioral Health Screen 1973 ??? Pertussis (Adult) Immunization due ??? Tetanus (Adult) Immunization due ??? Hiv Screening due ??? Preventative Care Visit 12/14/1979 ??? Colon Cancer Screening Colonoscopy due ??? Influenza (Adult/pediatric) Immunization: Seasonal due documented in this encounter Plan of Treatment Not on file documented as of this encounter Procedures Procedure Name Priority Date/Time Associated Diagnosis Comments LIPID PROFILE (INCLUDES CHOLESTEROL, TRIGLYCERIDES, HDL, LDL) Routine 03/24/2014 16:16 EST Diabetes mellitus type II, controlled ([facility]) ([facility]) COMPREHENSIVE METABOLIC PANEL (CMP) Routine 03/24/2014 16:16 EST Diabetes mellitus type II, controlled ([facility]) ([facility]) POCT HEMOGLOBIN A1C Routine 03/24/2014 1 2:11 EST Diabetes mellitus type II, controlled ([facility]) ([facility]) documented in this encounter Results * (ABNORMAL) COMPREHENSIVE METABOLIC PANEL (CMP) (03/24/2014 16:16 EST) Potassium 4.9 3.5 - 5.0 mEq/L 03/24/2014 18:11 [facility] Sodium 139 136 - 145 mEq/L 03/24/2014 18:11 [facility] Chloride 100 96 - 110 mEq/L 03/24/2014 18:11 [facility] CO2 30 24 - 32 mEq/L 03/24/2014 18:11 [facility] Total Alkaline Phosphatase 79 38 - 126 U/L 03/24/2014 18:11 [facility] Bilirubin, Total 0.9 <1.4 mg/dl 03/24/19 15 18:11 [facility] AST 38 15 - 46 U/L 03/24/2014 18:11 [facility] ALT 44 21 - 72 U/L 03/24/2014 18:11 [facility] Albumin 4.4 3.4 - 4.9 g/dl 03/24/2014 18:11 [facility] Total Protein 7.1 6.5 - 8.3 g/dl 03/24/2014 18:11 [facility] Creatinine 0.69 0.66 - 1.25 mg/dl 03/24/2014 18:11 [facility] GFR, Calculated >60 >60 ml/min/1.7 3m2 03/24/2014 18:11 [facility] BUN 14 10 - 26 mg/dl 03/24/2014 18:11 [facility] Calcium 9.4 8.5 - 10.5 mg/dl 03/24/2014 18:11 [facility] Calculated Calcium 9.4 8.5 - 10.5 mg/dl 03/24/2014 18:11 [facility] Glucose, Serum 275(H) 70 - 100 mg/dl 03/24/2014 18:11 [facility] Fasting? Unknown 03/24/2014 17:35 [facility] Blood specimen (specimen) BLOOD SPECIMEN / Unknown 03/24/2014 16:16 EST 03/24/2014 17:35 EST us Jason Batres MD CHEMISTRY & BLOOD G ORDERABLES Final Result Performing Organization Address City/State/[facility] Co de Phone Number [facility] [address] [place] [address] * LIPID PROFILE (INCLUDES CHOLESTEROL, TRIGLYCERIDES, HDL, LDL) (03/24/2014 16:16 EST) Cholesterol 219 mg/dl 03/24/2014 18:11 [facility] Comment: Desirable:<200 Borderline High:200-239 High:>oc=380 Triglycerides 313 mg/dl 03/24/2014 18:11 [facility] Comment: Normal:<150 Borderline High:150-199 High:200-499 Very High:>yi=665 HDL 43 mg/dl 03/24/2014 18:11 [facility] Comment: Low:<40 Normal:40-60 Desirable: >60 LDL, Calculated 113 mg/dl 5 18:11 [facility] Comment: Optimal:<100 Near Optimal:100-129 Borderline High:130-159 High:160-189 Very High:>vt=620 Chol/HDL Ratio 5.1 03/24/2014 18:11 [facility] Fasting? Unknown 03/24/2014 17:[address] [facility] Non HDL Cholesterol 176 mg/dl 03/24/2014 18:11 [facility] Comment: Desirable:<130 Borderline:130-159 High: 160-189 Very High: >cm=220 Blood specimen (specimen) BLOOD SPECIMEN / Unknown 03/24/2014 16:16 EST 03/24/2014 17:35 EST Jason Batres MD CHEMISTRY & BLOOD G ORDERABLES Final Result [facility] [address] [place] [phone] * (ABNORMAL) POCT HEMOGLOBIN A1C (03/24/2014 12:11 EST) Hemoglobin A1c, POC 12.0(A) <=5.7 POINT OF CARE 03/24/2014 12:1 1 EST Jason Batres MD POINT OF CARE TEST ORDERABLES Final Result Performing Organization Address City/[facility]/ZIP Co de Phone Number POINT OF CARE documented in this encounter Visit Diagnoses Diagnosis Diabetes mellitus type II, controlled ([facility])- Primary Type II or unspecified type diabetes mellitus without mention of complication, not stated as uncontrolled documented in this encounter Discontinued Medications Medication Sig Discontinue Reason Start Date End Da te ibuprofen (ADVIL) 200 mg tablet Take 4 Tabs by mouth 3 times daily as needed. 03/24/2014 metFORMIN (GLUCOPHAGE) 500 mg tablet TAKE 1 TAB TWICE DAILY. 02/17/2014 03/24/2014 documented as of this encounter Historical Medications * This list may reflect changes made after this encounter. acetaminophen (ARTHRITIS PAIN RELIEF, ACETAM,) 650 mg CR tablet Take 1,300 mg by mouth every 8 hours. 06/17/2014 added in this encounter Care Teams Channeler Relationship Specialty Start Date End Date Jason Batres MD [address] [place] [address] PCP - General 07/27/11 12/31/23 documented as of this encounter
--- OUTSIDE RECORDS SUMMARY | 2024-02-28 16:56 | XMS_ITS | Encounter Summary ---
Author Organization [facility] Address [address] [place] [address] Care Team Providers Care Theater Teacher Name Role Phone Unavailable Primary Care Provider Unavailabl e Encounter Details Date Type Department Care Team (Latest Contact Info) Description 05/12/2008 15:53 EDT Hospital Encounter [facility] [address] [place] [address] Jeff Camargo MD [address] [place] [id number] Discharge Disposition: Auto Discharge Social History Tobacco [...]
--- OUTSIDE RECORDS SUMMARY | 2024-02-28 16:56 | XMS_ITS | Encounter Summary ---
Author Organization [facility] Address [address] [place] [address] Care Team Providers Care Analytical Chemist Name Role Phone Unavailable Primary Care Provider Unavailabl e Encounter Details Date Type Department Care Team (Late st Contact Info) Description 04/08/2008 9:57 EST Hospital Encounter [facility] [address] [place] [address] Jeff Camargo MD [address] [place] [id number] Social History Tobacco Use Types Packs/Day Years [...]
--- OUTSIDE RECORDS SUMMARY | 2024-02-28 16:56 | XMS_ITS | Encounter Summary ---
Author Organization [facility] Address [address] [place] [address] Care Team Providers Care Retail Account Specialist Name Role Phone Jason Batres MD Primary Care Provi margarita Encounter Details Date Type Department Care Team (Late st Contact Info) Description 04/23/2007 Before PRISM Converted Visit (Maple) [facility] - Maple conversion [address] [place] [address] Jeff Camargo MD [address] [place] [address] [id number] Social History Tobacco Use Types Packs/Day Years Used Date Smoking Tobacco: Never Assessed Sex and Gender Information Value Date Recorded Sex Assigned at Male 06/12/2023 11:45 EDT Legal Sex Male 18:05 EST Gender Identity Male 10/03/2019 21:06 EDT Sexual Orientation Straight 06/12/2023 11 :45 EDT documented as of this encounter Progress Notes * Jeff Camargo MD - 01/13/2009 1144 EST PHYSICAL MEDICINE / REHABILITATION PROGRESS/FOLLOWUP NOTE - 04/23/2007 DATE OF SERVICE: 04/23/2007 ATTENDING PHYSICIAN: Jeff Camargo MD REFERRING PHYSICIAN: Jason Batres MD PRIMARY PHYSICIAN: Jason Batres MD REASON FOR EVALUATION/FOLLOWUP TODAY 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 HISTORY OF PRESENT ILLNESS Mr. Tyler represents to clinic today with his . They are presenting for evaluation of their concerns about Mr. Garcia lack of initiation with activities. He is continuing to work with speech and language pathology here [facility]. They have him working on a journal for maintaining a log of his daily activities and also assisting with memory. He finds it quite difficult to consistently comply with logging things into the journal, as he does not find this remotely interesting or useful. Both he and his describe that he is lacking a lot of initiation for any activities. He usuallyis a very active outdoors man and very involved with his children. However, at this point he reports that he is mostly staying at homeother than his therapy program a couple of hours daily. He also spends quite a bit time sleeping during the day and eating and has gained some weight over the last few months. He continues to have diplopia, which he finds the most troubling issues. He continues to wear temporary prism glasses. There is still expectation of visual recovery and therefore no definitive lenseshave been carved at this point. CURRENT MEDICATIONS INCLUDE Advil, Tylenol, Synthroid, and Effexor. He has had his Synthroid dose recently increased, as most recent lab studies by endocrinology had apparently demonstrated that he was still hypothyroid. He has been on the same dose of Effexor for some time now as well. PHYSICAL EXAMINATION On examination, Jeff has put on quite a bit of weight since I first met him. Of note, he had also lost probably 20 pounds during his hospitalization and has perhaps put on 20 pounds more than he should have. This to my eye looks to be a significant weight gain though he is not severely overweight at this point. He continues to have significant diplopia essentially with gaze towards the left. Hisright eye continues to be deviated down and outward. He has no gross strength deficits. No noticeable balance deficits were noted on gait assessment. His speech was clear. His social interaction was appropriate. SUMMARY Mr. Scott is a 46-year-old status post craniopharyngioma resection with cognitive deficits, memory deficits, initiation problems, and ongoing diplopia. At this point, I did not specifically recommendany medication management though we did discuss the possibility of a neurostimulant. Jeff seems kelly somewhat averse to any additional medications. I told him options at this point are to simply wait it out and see if he continues to improve neurologically over the next year, as he is just barelyover six months out from his surgery. I also told them that I am not interested in starting medication until we have seen his thyroid functions come back to normal levels, as he has been hypothyroid this certainly with complicate his energy levels and possible initiation issues associated with that. RECOMMENDATIONS I did discuss with him ways that he may self motivate towards more activity would be to plan a small accomplishable project that would require a couple of weeks worth of work that does no seem overwhelming, but would give him a specific activity to focus on daily to try and get completed. I will follow up with him in three months to assess his progress and see where his thyroid functions are at and then further consider the possibly of neurostimulant such as Ritalin or Adderall. Forty minutes was spent with Jeff Scott and his today, the entire time in [id number] contact, greater than half of which was spent in counseling him about his cognitive issues, discussing possible medication, and coordination of care. Signed by Jeff Camargo MD 04/26/2007 16:58 Jeff Camargo MD - Jeff Camargo MD - [facility] Job ID: [id number] Doc ID: [id number] cc: MD Corey Lynne MD Neuro/Ophthalmology Department, Endocrine Department, [facility]* documented in this encounter Plan of Treatment Not on file documented as of this encounter Visit Diagnoses Not on filedocumented in this encounter Care Teams Retail Account Specialist Relationship Specialty Start Date End Date Jason Batres MD [address] [place] [phone] PCP - General 08/13/08 05/24/11 documented as of this encounter
--- OUTSIDE RECORDS SUMMARY | 2024-02-28 16:56 | XMS_ITS | Encounter Summary ---
Author Organization [facility] Address [address] [place] [address] Care Team Providers Care Highway Maintenance Worker Name Role Phone Jason Batres MD Primary Care Provi margarita Encounter Details Date Type Department Care Team (Latest Contact Info) Description 02/25/2013 10:57 EST - 02/25/2013 23:59 EST Hospital Encounter [address] [address] Nikia Gómez MD [address] [place] [address] Discharge Disposition: Home or Self Care Social [...] Code Departure Means Destination Home or Self Group Home documented in this encounter Plan of Treatment Not on file documented as of this encounter Visit Diagnoses Not on filedocumented in this encounter Care Teams Highway Maintenance Worker Relationship Specialty Start Date End Date Jason Batres MD [address] [place] [address] PCP - General 07/27/11 12/31/23 documented as of this encounter
--- OUTSIDE RECORDS SUMMARY | 2024-02-28 16:56 | XMS_ITS | Encounter Summary ---
Author Organization [facility] Address [address] [place] [address] Care Team Providers Care Educational Psychology Teacher Name Role Phone Jason Batres MD Primary Care Provi margarita Reason for Visit * Reason Comments Diabetes Encounter Details Date Type Department Care Team (Late st Contact Info) Description 10/21/2013 Community Health Team [address], [address] [place] [address] Debby Sotomayor, RN [address] [place] [address] Social History Tobacco Use Types Packs/Day Years [...] Progress Notes * Debby Sotomayor, RN - 10/23/2013 2673 EDT Community Health Team Nurse Initial Encounter Date of visit: 10/21/2013 Nurse initial encounter with Jeff Quintanillaan for diabetes and nutrition education, original referral from Dr Batres. This is the initial encounter. This was a rescheduled appointment secondary to patient missing the first scheduled appointment. Jeff was 1/2 late to this appointment. SUBJECTIVE: Jeff states he has made some dietary changes since his last visit with Dr Batres. He states he hascompletely eliminated desserts and juices from his diet. He also states he has decreased his soda intake to 1-2 cans per week. He does admit sometimes I sneak candy when my is not home Jeff has not started taking metformin. He believes he will be able to decrease his blood sugar by making dietary and lifestyle modifications. OBJECTIVE: Jeff's most recent A1C= 12.7%. He has not been started on any medicines. He does not check his blood sugars at home. Jeff seemed nervous and overwhelmed at the beginning of our meeting. He was concerned that he would not remember what we discussed. During our conversation, his thought processes were scattered and he frequently asked me to repeat information. Jeff states he eats 3 balanced meals a day. He typically has cereal and toast for breakfast, a peanut butter and jelly sandwich for lunch and whatever my cooks for dinner. He has replaced desserts with fruit and has increased his water intake. Jeff states he is active all day long but does not engage in any formal exercise. Recently, walking has become uncomfortable secondary to hip pain but he does enjoy riding his bike. Encouraged him to ride his bike as often as possible. CHT intake: Not completed. RN discretion No question data found. BEHAVIORAL HEALTH SCREENING: TOPIC OF CONVERSATION: Engaged patient in conversation related to positive behavior change, self- management, goal setting and action planning using motivational interviewing and active listening. Jeff has difficulty retaining information secondary to his brain surgery. The concept of carbohydrate counting is too complexfor him. Our discussion focused on limiting carbohydrate-rich foods in his diet. The carbohydrate-rich foods that Jeff typically consumes were written on index cards for his reference. Suggestions for different breakfasts and lunches provided. Reviewed recommended portion sizes. We discussed the benefits of increasing his activity level on lowering his blood sugars as well as overall improved health. Educational materials provided: hand written index cards with topics that were addressed during ourmeeting Method: handout and verbal Taught to: Patient Barriers: cognitive Outcomes: Pt verbalized understanding STAGE OF CHANGE: Action ASSESSMENT: Jeff is very motivated to make changes in order to decrease his blood sugars. He has already made some positive changes to his diet. He states understanding of decreasing portion size, especially of the carbohydrate rich foods, to help decrease his blood sugars. It is somewhat difficult to assess Jeff's comprehension of the information provided, and therefore, how much he understands of the correlation between carbohydrates and elevated blood sugars. Every topic we discussed was written down for him. Action plan: Goals None PATIENT IDENTIFIED GOALS: No goals were created during this visit, although Jeff did voice his desire to do whatever I can to bring my sugars down PLAN: Jeff will continue to work on eliminating soda completely from his diet Jeff will decrease his portion size, especially of the carbohydrate - rich foods on the list we made together Jeff will increase his vegetables Jeff will continue to chose water to drink Jeff will try to ride his bike for at least 10-15 minutes a day Jeff was appreciative of the information provided. He would like to make a follow up appointment after his next appointment with Dr Batres. My contact information provided if he has any questions orconcerns. CHT RN will call him after his OV with Dr Batres. Total Time : 60 minutes Referral: none Follow up: CHT RN to call after his next PCP appointment Status: Active documented in this encounter Plan of Treatment Not on file documented as of this encounter Visit Diagnoses Not on filedocumented in this encounter Care Teams Educational Psychology Teacher Relationship Specialty Start Date End Date Jason Batres MD [address] [place] [phone] PCP - General 07/27/11 12/31/23 documented as of this encounter
--- OUTSIDE RECORDS SUMMARY | 2024-02-28 16:56 | XMS_ITS | Encounter Summary ---
Author Organization [facility] Address [address] [place] [address] Care Team Providers Care Telephone Betting Clerk Name Role Phone Jason Batres MD Primary Care Provi margarita Encounter Details Date Type Department Care Team (Late st Contact Info) Description 03/18/2008 Before PRISM Converted Visit (Maple) [facility] - Maple conversion [address] [place] [address] Vanessa Ledezma, PhD Social History Tobacco Use Types Packs/Day Years [...] on filedocumented in this encounter Care Teams Telephone Betting Clerk Relationship Specialty Start Date End Date Jason Batres MD [address] [place] [phone] PCP - General 08/13/08 05/24/11 documented as of this encounter
--- OUTSIDE RECORDS SUMMARY | 2024-02-28 16:56 | XMS_ITS | Encounter Summary ---
Author Organization [facility] Address [address] [place] [address] Care Team Providers Care Cleat Feeder Name Role Phone Jason Batres MD Primary Care Provi margarita Reason for Visit * Reason Onset Date Comments Other 02/06/2012 Encounter Details Date Type Department Care Team (Late st Contact Info) Description 02/06/[address] [facility] Rehabilitation Therapy [address] [phone] Son Gu RN Other Social History Tobacco Use Types Packs/Day [...] encounter Miscellaneous Notes * Telephone Encounter - Yulisa Myles - 02/12/2012 1354 EST Jeff notified that the letter was completed and he asked that I mail it to him. Mailed today. * Telephone Encounter - Yulisa Myles - 02/12/2012 [address] in [address] Camargo's in basket. * Telephone Encounter - Carol Gu RN - 02/09/2012 1723 EST Nguyen called back and left a voice message stating that Jeff did have all the paperwork but he did not know he was suppose to send to Dr Camargo. Nguyen will fax to us on Sunday. 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 Nguyen had asked Jeff to have Farhat send Dr Camargo that request and this has not been done. Nguyen is going to contact Farhat, provide him with Dr Camargo's fax number and ask that he send this request along with the job description so that Dr Camargo can respond. Will await this information and then forward request to Dr Camargo. * Telephone Encounter - Carol Gu RN - 02/09/2012 1021 EST TC to Jeff per Dr Camargo to obtain more information on request and Jeff was not able to provideany information other than his had asked him to call for this letter. Jeff will have his wifecall me back to provide more information on what is being requested later today. * Telephone Encounter - Carol Gu RN - 02/06/2012 1557 EST Jeff called to ask Dr Camargo to provide him with letter stating he is not ready to go back to work at [employer]. Jeff stated that he does not feel he can safely keep up the pace expected at that job. documented in this encounter Plan of Treatment Not on file documented as of this encounter Visit Diagnoses Not on filedocumented in this encounter Care Teams Cleat Feeder Relationship Specialty Start Date End Date Jason Batres MD [address] [place] [id number] PCP - General 07/27/11 12/31/23 documented as of this encounter
--- OUTSIDE RECORDS SUMMARY | 2024-02-28 16:57 | XMS_ITS | Encounter Summary ---
Author Organization [facility] Address [address] [place] [address] Care Team Providers Care Living Coach Name Role Phone Jason Batres MD Primary Care Provi margarita Encounter Details Date Type Department Care Team (Late st Contact Info) Description 10/05/2006 Before PRISM Converted Visit (Maple) [facility] - Maple conversion [address] [place] [address] Marciano Segovia MD [address] [phone] Social History Tobacco Use Types Packs/Day Years Used Date Smoking Tobacco: Never Assessed Sex and Gender Information Value Date Recorded Sex Assigned at Male 06/12/2023 11:45 EDT Legal Sex Male 18:05 EST Gender Identity Male 10/03/2019 21:06 EDT Sexual Orientation Straight 06/12/2023 11 :45 EDT documented as of this encounter Progress Notes * Marciano Segovia MD - 01/12/2009 1631 EST INPATIENT PROGRESS NOTE Service Date: 10/05/2006 PT LOC: F002 Mr. Scott is a 45-year-old recovering from resection of craniopharyngioma. Medical issues include hypocortisolism and relative hypotension. Patient is receiving hydrocortisone supplementation. He hashad normal recent thyroid studies. Current temperature 36.7. Pulse 70. Respirations 16. Blood pressure 96/52. Surgical wound is healing. Cardiac rhythm is regular. Lung martinez are clear. Abdomen is soft. Neck veins are not visibly distended. ASSESSMENT AND PLAN 1. Continue comprehensive therapy activities status post resection of craniopharyngioma. 2. Continue hydrocortisone supplementation for hypocortisolism. 3. Continue antidepressant drug therapy. 4. Maintain gabapentin for adjunctive pain management. Signed by Marciano Segovia MD 10/15/2006 09:16 Jer Herrera MD Marciano Segovia MD - Marciano Segovia MD A - eh Job ID: [id number] Document ID: [id number] cc: documented in this encounter Plan of Treatment Not on file documented as of this encounter Visit Diagnoses Not on filedocumented in this encounter Care Teams Living Coach Relationship Specialty Start Date End Date Jason Batres MD [address] [place] [phone] PCP - General 08/13/08 05/24/11 documented as of this encounter
--- OUTSIDE RECORDS SUMMARY | 2024-02-28 16:57 | XMS_ITS | Encounter Summary ---
Author Organization [facility] Address [address] [place] [address] Care Team Providers Care Bakery And Deli Sales Manager Name Role Phone Jason Batres MD Primary Care Provi margarita Encounter Details Date Type Department Care Team (Late st Contact Info) Description 09/18/2006 Before PRISM Converted Visit (Maple) [facility] - Maple conversion [address] [place] [address] Marciano Segovia MD [address] [phone] Social History Tobacco Use Types Packs/Day Years Used Date Smoking Tobacco: Never Assessed Sex and Gender Information Value Date Recorded Sex Assigned at Male 06/12/2023 11:45 EDT Legal Sex Male 18:05 EST Gender Identity Male 10/03/2019 21:06 EDT Sexual Orientation Straight 06/12/2023 11 :45 EDT documented as of this encounter Progress Notes * Marciano Segovia MD - 01/06/2009 0451 EST INPATIENT PROGRESS NOTE Service Date: 09/18/2006 PT LOC: F002 Mr. Scott is a 45-year-old recovering from resection of a craniopharyngioma performed at [facility]. This date ofsurgery was September 06, 2006. 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 Today temperature is 36.3, pulse 55, respirations 14, blood pressure is 97/60. The skull incision is healing.Cardiac rhythm is regular. Lung martinez are clear. Abdomen is soft. JVD is not visible. ASSESSMENT AND PLAN Mr. Scott will continue comprehensive therapy activities following the resection of craniopharyngioma. Follow-up hormonal laboratory studies have been requested. Signed by Marciano Segovia MD 09/21/2006 12:27 Jer Herrera MD Marciano Segovia MD - Marciano Segovia MD [employer] Job ID: [id number] Document ID: [id number] cc: \* MERGEFORMAT Jacob Segovia MD D: - Marciano Segovia MD P [facility] [employer] Job ID: [id number] Document ID: [id number] cc: documented in this encounter Plan of Treatment Not on file documented as of this encounter Procedures Procedure Name Priority Date/Time Associated Diagnosis Comments TSH Routine 09/18/2006 6:40 EDT documented in this encounter Results * TSH (09/18/2006 6:40 EDT) TSH 1.02 0.35 - 5.00 uIU/mL [facility] 09/18/2006 6:40 EDT 09/18/2006 6:47 EDT us Artie Preston MD CHEMISTRY & BLOOD GAS O RDERABLES Final Result [facility] [address] [place] [address] documented in this encounter Visit Diagnoses Not on filedocumented in this encounter Care Teams Bakery And Deli Sales Manager Relationship Specialty Start Date End Date Jason Batres MD [address] [place] [phone] PCP - General 08/13/08 05/24/11 documented as of this encounter
--- OUTSIDE RECORDS SUMMARY | 2024-02-28 16:57 | XMS_ITS | Encounter Summary ---
Author Organization [facility] Address [address] [place] [address] Care Team Providers Care Fishing Manager Name Role Phone Jason Batres MD Primary Care Provi margarita Encounter Details Date Type Department Care Team (Late st Contact Info) Description 09/27/2006 Before PRISM Converted Visit (Maple) [facility] - Maple conversion [address] [place] [address] Artie Preston MD [address] [place] [phone] Social History Tobacco Use Types Packs/Day Years Used Date Smoking Tobacco: Never Assessed Sex and Gender Information Value Date Recorded Sex Assigned at Male 06/12/2023 11:45 EDT Legal Sex Male 18:05 EST Gender Identity Male 10/03/2019 21:06 EDT Sexual Orientation Straight 06/12/2023 11 :45 EDT documented as of this encounter Progress Notes * Artie Preston MD - 01/13/2009 1012 EST INPATIENT PROGRESS NOTE Service Date: 09/27/2006 PT LOC: F002 Mr. Scott is here following craniopharyngioma resection at [facility]. Unable to provide adequate history as he has poor awareness of his deficits. Over the last 24 hours he has demonstrated some increased impulsivity. He does need intermittent up to a maximum assistance, assistance to correct for loss of balance. Temperature 36.6. Pulse 67. Respirations 16. Blood pressure 113/65. Heart is regular. Lungs are clear. Abdomen soft, nontender. Bowel sounds present. Calves soft and nontender. No focal motor weakness. He does have impaired balance. Sensation appears to be grossly intact. IMPRESSION 1. Craniopharyngeal resection: Continue present therapy program. He is going to be placed on one-to-one supervision given the increase in impulsivity and loss of balance. 2. Electrolyte disturbance: Stable at this time. Will follow intermittently by checking electrolytes. 3. Endocrine: Remains on hydrocortisone. 4. Psychiatric: Has done well off risperidone to date. Monitor for increased impulsivity. We may need to add this back. Signed by Artie Preston MD 10/03/2006 08:02 Gregory Chapman MD Artie Preston MD - Artie Preston MD Baylee andres Job ID: [id number] Document ID: [id number] cc: \* MERGEFORMAT Artie Preston MD - Artie Preston MD Baylee andres Job ID: [id number] Document ID: [id number] cc: documented in this encounter Plan of Treatment Not on file documented as of this encounter Visit Diagnoses Not on filedocumented in this encounter Care Teams Fishing Manager Relationship Specialty Start Date End Date Jason Batres MD [address] [place] [phone] PCP - General 08/13/08 05/24/11 documented as of this encounter
--- OUTSIDE RECORDS SUMMARY | 2024-02-28 16:57 | XMS_ITS | Encounter Summary ---
Author Organization [facility] Address [address] [place] [address] Care Team Providers Care Wafer Cutter Name Role Phone Jason Batres MD Primary Care Provi margarita Encounter Details Date Type Department Care Team (Late st Contact Info) Description 10/03/2006 Before PRISM Converted Visit (Maple) [facility] - Maple conversion [address] [place] [address] Artie Preston MD [address] [place] [phone] Social History Tobacco Use Types Packs/Day Years Used Date Smoking Tobacco: Never Assessed Sex and Gender Information Value Date Recorded Sex Assigned at Male 06/12/2023 11:45 EDT Legal Sex Male 18:05 EST Gender Identity Male 10/03/2019 21:06 EDT Sexual Orientation Straight 06/12/2023 11 :45 EDT documented as of this encounter Progress Notes * Artie Preston MD - 01/10/20092128 EST INPATIENT PROGRESS NOTE Service Date: 10/03/2006 PT LOC: F002 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 He denies any pain, shortness of breath,He has continued diplopia. He well. He does require one-to-one supervision. Temperature 37.3, pulse 67, respirations 16, blood pressure 85/59. Heart is regular. Lungs are clear. Abdomen soft, nontender, bowel sounds present. Calves are soft and nontender.Range of motion is within functional limits. No gross deformities are noted. His craniotomy site is intact without evidence of infection or dehiscence. DATABASE TSH is 2.74, free T3 is 2.3, and free T4 is 0.9. IMPRESSION 1. Craniopharyngioma resection. Continue present therapy programHe continues to require one-to-one supervision secondary to poor insight, impulsivity, and gait instability, but he is making fair gains in all areas. 2. Endocrine. Appreciate internal medicine followup. It appears that free T4 has normalized. Continue supplementation with hydrocortisone at present dosing. 3. Skin. Continue to monitor for secondary evidence of infection. Signed by Artie Preston MD 10/18/2006 13:19 Gregory Chapman MD Artie Preston MD - Artie Preston MD A - [facility] Job ID: [id number] Document ID: [id number] cc: \* MERGEFORMAT Kaelyn Preston MD D: - Artie Preston MD A [employer] Job ID: [id number] Document ID: [id number] cc: documented in this encounter Plan of Treatment Not on file documented as of this encounter Visit Diagnoses Not on filedocumented in this encounter Care Teams Wafer Cutter Relationship Specialty Start Date End Date Jason Batres MD [address] [place] [phone] PCP - General 08/13/08 05/24/11 documented as of this encounter
--- OUTSIDE RECORDS SUMMARY | 2024-02-28 16:57 | XMS_ITS | Encounter Summary ---
Author Organization [facility] Address [address] [place] [address] Care Team Providers Care Bungy Jump Master Name Role Phone Jason Batres MD Primary Care Provi margarita Encounter Details Date Type Department Care Team (Late st Contact Info) Description 10/19/2006 Before PRISM Converted Visit (Maple) [facility] - Maple conversion [address] [place] [address] Kendal Salinas, PT [address] [place] [phone] Social History Tobacco Use Types [...] this encounter Visit Diagnoses * Evaluation - Kendal Palmer, PT - 01/10/2009 7477 EST [facility] PHYSICAL THERAPY INITIAL EVALUATION SERVICE DATE: 10/19/2006 REFERRING PROVIDER: Artie Preston MD PRIMARY CARE PROVIDER: Chente Gomes MD DIAGNOSIS/ONSET/ICD9#: 1. Gait abnormality / 09/06/2006 / 781.2 2. Unspecified behavior neoplasm of pituitary gland / 09/06/2006 / 237.0 PRECAUTIONS: Diplopia and fall risk SUBJECTIVE HISTORY OF PRESENT ILLNESS Patient is a 45-year-old male from [place], [place]. Patient lives with his , Nguyen, and two sons, who are 12 and 14. On September 06, 2006, he had a craniotomy to remove a brain tumor. 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 He had been on leave from [employer] secondary to increasing behavioral changes and substance abuse of Vicodin for his hip pain. Duringthis time, patient was exhibiting some bizarre behavior and his insisted on an MRI given his familyhistory of brain tumors. 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 He was admitted to [facility] on September 13, 2006 secondary to significant functional limitations s/p craniotomy. 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 Patient was discharged from inpatient rehab 10/16/06 requiring close supervision with all mobility secondary to his decreased vision, decreased balanceand decreased short-term memory. His family is currently providing that assist at homeand things are going well. Jeff is stating that he is feeling tired a lot, but it is good to be home. His biggest concerns are his vision. He also states that his painin his left hip has been bettersince the hospitalization, probably because he has not been doing as much. Currently, he rates his pain in his left hip at 7/10 and he describes it as sharp and it is daily and it increases with activity. They had scheduledappointment with an orthopedic surgeon about his left hip prior to the craniotomy but were unable to make that appt. They describe their home [place] level [place] with no stairs once they are inside the home, but seven steps with one railing to enter and he currently getting supervision going up and down the stairs. Their house [place] lot with youssef and hills in the front and hills in the back, and he is able to negotiate that with hand-held assist from his . Patient's is present today for initial evaluation and to answer questions regarding patient'scondition as patient has impaired short term memory and decreased insight. 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 Also, he has a history of left hip osteoarthritis and herniated disk in his lumbar spine, and substance abuse of Vicodin for left hip pain. He also had a recent 40-pound weight loss. Patient had an evaluation scheduled with an orthopedic surgeon about his left hip prior to his hospitalization, which he had to cancel. CURRENT MEDICATIONS: Neurontin, Caritas, Protonix, and Effexor. PATIENT'S GOALS FOR TREATMENT He says he wants me to fix his eyes and help him walk better. OBJECTIVE Initial evaluation was performed today, with findings as follows: RESTING VITAL SIGNS Blood pressure was 98/61 mmHg, heart rate was 79 bpm. After 500 feet of ambulation, his blood pressure was 97/66 mmHg, heart rate was 83 bpm. STRENGTH Bilateral hipflexion was 4/5, right hip extension was 3+/5, left hip extension was 4/5, bilateral hip abduction 5/5. Bilateral knee extension, knee flexion, hip external rotation and dorsiflexion was5/5. Left hip internal rotation: did not test for strength, assuming the test position caused significant pain. Right hip internal rotation was 4/5. RANGE OF MOTION Left hip flexion to 100 degrees with pain, right hip flexion 120 degrees with no pain, left hip internal rotation less than 0 degrees with pain immediately, right hip internal rotation 5 degrees withno pain, bilateral hip external rotation within normal limits. Hamstring length bilaterally within normal limits. SENSATION Sensation intact to light touch bilateral lower extremities and upper extremities. GAIT Patient ambulates with no device indoors on level surfaces with close supervision for negotiation of certain obstacles secondary to his vision. His trunk is slightly flexed. No other significant gaitdeviations noted, other than patient with some mild deviation from path, with turning and changing speeds. POSTURE No major postural faults identified in sitting or standing. VISION: Refer to OT notes for formal results of vision testing. He has diplopia, is wearing an eye patch. He has no vision in his inferior or superior martinez. CURRENT FUNCTIONAL LEVEL Patient is currently independent with supine to sit and with transfers, no device. On and off the floor not evaluated today. Stairs: Patient needing close supervision to go up and down a flight of stairs with rail, contact guard times one for up and down a flight of stairs with no rail. BALANCE Dynamic Gait Index: Patient had a Dynamic Gait Index score today of 20/24. Champion Balance Test was administered up on inpatient rehab on October 16, 2006 and patient had a scoreof 55/56. INTERVENTIONS COMPLETED TODAY Patient/family education: Reviewed the results of the Dynamic Gait Index and exam findings with and with patient. Reinforced the need for patient to have close supervision at all times when outdoors and distant supervision inside on familiar terrain. Patient and verbalized understanding of recommendations, and demonstrating safe guarding techniques and cueing as patient negotiated the hospital environment. ASSESSMENT Patient is a 45-year-old previously healthy and gainfully employed male who is now status post craniotomy for brain tumor, which has resulted in significantly impaired vision, decreased balance, decreased endurance, and decreased short- term memory. He also presents today with left hip pain, decreased hip range of motion and decreased hip strength secondary to severe osteoarthritis of the hip. Hisabove described impairments from the craniotomy are currently necessitating he have 24-hour supervision with all mobility and gait. He would definitely benefit from skilled PT intervention to maximize functional potential and regain independence with ambulation. Anticipate he will make good progress towards goals, but barriers will be visual deficits and decreased short-term memory. Patient and understand treatment plan and in agreement with following goals. STG: Two weeks. 1. Dynamic Gait Index score of 22/24. 2. Patient will be distant supervision for ambulation outdoors and in community. 3. Patient will be independent up and down a flight of stairs with rail. 4. Patient will be independent ambulating indoors with no device. 5. Patient will be able to recall 80% of events during physical therapy session at the end of the treatment session. 6. Patient tolerates an initiation of leg strengthening and balance program without an increase in left hip pain. 7. Patient able to pick objects off floor independently and safely. LTG: Six to eight weeks 1. Patient will be independent up and down a flight of stairs with no rail. 2. Patient will be independent for outdoor and community ambulation in familiar places. 3. Patient will increase six-minute walk test distance by 500 feet without an increase in left hip pain. 4. Patient is independent in his home exercise program. 5. Patient will be able to recall 100% of events during PT session at end of session. 6. Dynamic Gait Index score of 24/24. 7. Patient will be independent in recovering from loss of balance during high- level balance challenges. PLAN INTERVENTION/FREQUENCY Patient to be seen two times a week for 60-minute treatment sessions for approximately six to eightweeks. Interventions to include therapeutic exercises, gait training, balance training, stair training, and patient education. FURTHER DATA Administer six-minute walk test, assess outdoor ambulation. DISCONTINUE PLAN When goals are met or progress plateaus; anticipate approximately six week to eight weeks. Thank you for this referral. Signed by Kendal Palmer PT 11/07/2006 09:55 Zachary Suarez PT Kendal Palmer PT cc: MD Artie Noble MD - Kendal Palmer PT A - [facility] Job ID: [id number] Document ID: [id number] documented in this encounter Care Teams Bungy Jump Master Relationship Specialty Start Date End Date Jason Batres MD [address] [place] [phone] PCP - General 08/13/08 05/24/11 documented as of this encounter
--- OUTSIDE RECORDS SUMMARY | 2024-02-28 16:57 | XMS_ITS | Encounter Summary ---
Author Organization [facility] Address [address] [place] [address] Care Team Providers Care Computer Operations Manager Name Role Phone Jason Batres MD Primary Care Provi margarita Encounter Details Date Type Department Care Team (Late st Contact Info) Description 10/02/2006 Before PRISM Converted Visit (Maple) [facility] - Maple conversion [address] [place] [address] Artie Preston MD [address] [place] [phone] Social History Tobacco Use Types Packs/Day Years Used Date Smoking Tobacco: Never Assessed Sex and Gender Information Value Date Recorded Sex Assigned at Male 06/12/2023 11:45 EDT Legal Sex Male 18:05 EST Gender Identity Male 10/03/2019 21:06 EDT Sexual Orientation Straight 06/12/2023 11 :45 EDT documented as of this encounter Progress Notes * Artie Preston MD - 01/10/20092127 EST INPATIENT PROGRESS NOTE Service Date: 10/02/2006 PT LOC: F002 Mr. Scott is here following a craniopharyngeal resection. He has limited awareness of his surgery, but does deny any pain. He notes ongoing double vision. No shortness of breath or lightheadedness. Vital signs stable. Afebrile. Heart regular. Lungs clear. Abdomen soft, nontender. Bowel sounds present. Calves soft, and nontender. Surgical incisions well approximated. No focal motor weakness. He does remain with impaired balance. IMPRESSION 1. Craniopharyngioma. Status post resection. Continue present therapy program. Team meeting was attended today and case was discussed with all team members. I have reviewed the currentplan of care for all therapy modalities and am in agreement with the current plan. Patient continues to require inpatient rehabilitation. Total time spent today is 35 minutes. Greater than 50 percent of that time was spent in coordination of care and counseling. 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 I appreciate the Internal Medicine followup. Signed by Artie Preston MD 10/18/2006 13:19 Gregory Chapman MD Artie Preston MD - Artie Preston MD A - cs[facility] Job ID: [id number] Document ID: [id number] cc: documented in this encounter Plan of Treatment Not on file documented as of this encounter Procedures Procedure Name Priority Date/Time Associated Diagnosis Comments T3 FREE Routine 10/02/2006 6:30 EDT TSH Routine 10/02/2006 6:30 EDT T4 FREE Routine 10/02/2006 6:30 EDT documented in this encounter Results * TSH (10/02/2006 6:30 EDT) TSH 2.74 0.35 - 5.00 uIU/mL [facility] 10/02/2006 6:30 EDT 10/02/2006 6:42 EDT us Artie Preston MD CHEMISTRY & BLOOD GAS O RDERABLES Final Result [facility] [address] [place] [address] * T4 FREE (10/02/2006 6:30 EDT) Free T4 0.9 0.8 - 1.8 ng/dL [facility] 10/02/2006 6:30 EDT 10/02/2006 6:42 EDT Artie Preston MD CHEMISTRY & BLOOD GAS O RDERABLES Final Result Performing Organization Address [facility] Co de Phone Number [facility] [address] [place] [address] * T3 FREE (10/02/2006 6:30 EDT) T3, Free 2.3 2.3 - 4.2 pg/mL [facility] 10/02/2006 6:30 EDT 10/02/2006 6:42 EDT Artie Preston MD CHEMISTRY & BLOOD GAS O RDERABLES Final Result Performing Organization Address [facility] de Phone Number [facility] [address] [place] [address] documented in this encounter Visit Diagnoses Not on filedocumented in this encounter Care Teams Computer Operations Manager Relationship Specialty Start Date End Date Jason Batres MD [address] [place] [phone] PCP - General 08/13/08 05/24/11 documented as of this encounter
--- OUTSIDE RECORDS SUMMARY | 2024-02-28 16:57 | XMS_ITS | Encounter Summary ---
Author Organization [facility] Address [address] [place] [address] Care Team Providers Care It Architect Name Role Phone Jason Batres MD Primary Care Provi margarita Encounter Details Date Type Department Care Team (Late st Contact Info) Description 10/01/2006 Before PRISM Converted Visit (Maple) [facility] - Maple conversion [address] [place] [address] Marciano Segovia MD [address] [phone] Social History Tobacco Use Types Packs/Day Years Used Date Smoking Tobacco: Never Assessed Sex and Gender Information Value Date Recorded Sex Assigned at Male 06/12/2023 11:45 EDT Legal Sex Male 18:05 EST Gender Identity Male 10/03/2019 21:06 EDT Sexual Orientation Straight 06/12/2023 11 :45 EDT documented as of this encounter Progress Notes * Marciano Segovia MD - 01/07/2009 0348 EST INPATIENT PROGRESS NOTE Service Date: 10/01/2006 PT LOC: F002 Mr. Scott is 45-year-old who is recovering status post resection of craniopharyngioma. Patient is participating actively in the therapy program. His last thyroid studies were done on September 19, 2006. He remains on hydrocortisone, 20 mg in the morning and 10 in the evening. Patient denies fever, chills, sweats or headache. Temperature 37.4. Pulse 66. Respirations 16. Blood pressure 91/53. Cardiac rhythm is regular. Lung martinez are clear. Abdomen is soft. JV Ds not visible. Surgical wounds continue to heal nicely. ASSESSMENT AND PLAN 1. Craniopharyngioma: Continue comprehensive rehab activities status post surgical intervention. 2. Continue hydrocortisone supplementation and support. 3. Recheck free T4, free T3 and TSH. Note that these were mildly abnormal just greater than two weeks ago. 4. Follow up these results when available. Signed by Marciano Segovia MD 10/04/2006 12:07 Jer Herrera MD Marciano Segovia MD - Marciano Segovia MD A - eh Job ID: [id number] Document ID: [id number] cc: documented in this encounter Plan of Treatment Not on file documented as of this encounter Visit Diagnoses Not on filedocumented in this encounter Care Teams It Architect Relationship Specialty Start Date End Date Jason Batres MD [address] [place] [phone] PCP - General 08/13/08 05/24/11 documented as of this encounter
--- OUTSIDE RECORDS SUMMARY | 2024-02-28 16:57 | XMS_ITS | Encounter Summary ---
Author Organization [facility] Address [address] [place] [address] Care Team Providers Care Retail Tire Sales Manager Name Role Phone Jaosn Batres MD Primary Care Provi margarita Encounter Details Date Type Department Care Team (Late st Contact Info) Description 10/09/2006 Before PRISM Converted Visit (Maple) [facility] - Maple conversion [address] [place] [address] Marciano Segovia MD [address] [phone] Social History Tobacco Use Types Packs/Day Years Used Date Smoking Tobacco: Never Assessed Sex and Gender Information Value Date Recorded Sex Assigned at Male 06/12/2023 11:45 EDT Legal Sex Male 18:05 EST Gender Identity Male 10/03/2019 21:06 EDT Sexual Orientation Straight 06/12/2023 11 :45 EDT documented as of this encounter Progress Notes * Marciano Segovia MD - 01/07/2009 0220 EST INPATIENT PROGRESS NOTE Service Date: 10/09/2006 PT LOC: F002 Mr. Scott is a 45-year-old status post resection of craniopharyngioma. He is on hydrocortisone therapy due to hypocortisolism. He is not currently requiring thyroid hormone supplementation. Issues include hypotension. The patient denies fever, chills, sweats, or dizziness. Temperature is 36.6, pulse 66, respirations 16, blood pressure 86/57. Cardiac rhythm is regular. Lung martinez are clear. Abdomen is soft. JVD is not visible. The surgicalwound is healing well. ASSESSMENT AND PLAN 1. Continue comprehensive therapy activities status post resection of craniopharyngioma. 2. Hypocortisolism. Continue hydrocortisone therapy. 3. Hypotension. Continue monitoring blood pressure response. Signed by Marciano Segovia MD 10/22/2006 09:07 Jer Herrera MD Marciano Segovia MD - Marciano Segovia MD P - lr Job ID: [id number] Document ID: [id number] cc: \* MERGEFORMAT Marciano Segovia MD - Marciano Segovia MD P - lr Job ID: [id number] Document ID: [id number] cc: documented in this encounter Plan of Treatment Not on file documented as of this encounter Visit Diagnoses Not on filedocumented in this encounter Care Teams Retail Tire Sales Manager Relationship Specialty Start Date End Date Jason Batres MD [address] [place] [phone] PCP - General 08/13/08 05/24/11 documented as of this encounter
--- OUTSIDE RECORDS SUMMARY | 2024-02-28 16:57 | XMS_ITS | Encounter Summary ---
Author Organization [facility] Address [address] [place] [address] Care Team Providers Care Leather Belt Loop Cutter Name Role Phone Jason Batres MD Primary Care Provi margarita Encounter Details Date Type Department Care Team (Late st Contact Info) Description 10/04/2006 Before PRISM Converted Visit (Maple) [facility] - Maple conversion [address] [place] [address] Marciano Segovia MD [address] [phone] Social History Tobacco Use Types Packs/Day Years Used Date Smoking Tobacco: Never Assessed Sex and Gender Information Value Date Recorded Sex Assigned at Male 06/12/2023 11:45 EDT Legal Sex Male 18:05 EST Gender Identity Male 10/03/2019 21:06 EDT Sexual Orientation Straight 06/12/2023 11 :45 EDT documented as of this encounter Progress Notes * Marciano Segovia MD - 01/10/2009 1204 EST INPATIENT PROGRESS NOTE Service Date: 10/04/2006 PT LOC: F002 Mr. Scott is a 45-year-old recovering from excision of a craniopharyngioma. Medical issues include hypocortisolism requiring hydrocortisone supplementation. Patient is not presently requiring thyroidhormone supplementation. Most recent thyroid studies showed adequate function. Patient denies fever, chills or sweats. Temperature 36.5. Pulse 68. Respirations 16. Blood pressure 95/66. Cardiac rhythm is regular. Lung martinez are clear. Abdomen is soft. JVD is not visible. Surgical wound is healing. ASSESSMENT AND PLAN 1. Continue comprehensive therapy activities following resection of craniopharyngioma. 2. Maintain hydrocortisone therapy for hypocortisolism. 3. Continue monitoring response to the demands of therapy. Signed by Marciano Segovia MD 10/11/2006 11:27 Jer Herrera MD Marciano Segovia MD - Marciano Segovia MD A - eh Job ID: [id number] Document ID: [id number] cc: documented in this encounter Plan of Treatment Not on file documented as of this encounter Visit Diagnoses Not on filedocumented in this encounter Care Teams Leather Belt Loop Cutter Relationship Specialty Start Date End Date Jason Batres MD [address] [place] [phone] PCP - General 08/13/08 05/24/11 documented as of this encounter
--- OUTSIDE RECORDS SUMMARY | 2024-02-28 16:57 | XMS_ITS | Encounter Summary ---
Author Organization [facility] Address [address] [place] [address] Care Team Providers Care Forester Aide Name Role Phone Jason Batres MD Primary Care Provi margarita Encounter Details Date Type Department Care Team (Late st Contact Info) Description 10/14/2006 Before PRISM Converted Visit (Maple) [facility] - Maple conversion [address] [place] [address] Franco Rodríguez MD [address] [place] [phone] Social History Tobacco Use Types Packs/Day Years Used Date Smoking Tobacco: Never Assessed Sex and Gender Information Value Date Recorded Sex Assigned at Male 06/12/2023 11:45 EDT Legal Sex Male 18:05 EST Gender Identity Male 10/03/2019 21:06 EDT Sexual Orientation Straight 06/12/2023 11 :45 EDT documented as of this encounter Progress Notes * Franco Rodríguez MD - 01/09/2009 0931 EST INPATIENT PROGRESS NOTE Service Date: 10/14/2006 PT LOC: F002 Jeff Scott is the 45-year-old gentleman with craniopharyngioma. His vital signs are stable. He is afebrile. Affect remains bright. He is tolerating therapies well. Continue with his PT and OT. Signed by Franco Rodríguez MD 10/16/2006 09:51 Nelson Rodríguez MDThgurinder Rodríguez MD Franco Rodríguez MD D: - Franco Rodríguez MD A - eh Job ID: [id number] Document ID: [id number] cc: documented in this encounter Plan of Treatment Not on file documented as of this encounter Visit Diagnoses Not on filedocumented in this encounter Care Teams Forester Aide Relationship Specialty Start Date End Date Jason Batres MD [address] [place] [phone] PCP - General 08/13/08 05/24/11 documented as of this encounter
--- OUTSIDE RECORDS SUMMARY | 2024-02-28 16:57 | XMS_ITS | Encounter Summary ---
Author Organization [facility] Address [address] [place] [address] Care Team Providers Care Cranberry Bog Supervisor Name Role Phone Jason Batres MD Primary Care Provi margarita Encounter Details Date Type Department Care Team (Late st Contact Info) Description 09/20/2006 Before PRISM Converted Visit (Maple) [facility] - Maple conversion [address] [place] [address] Jeff Camargo MD [address] [place] [address] [phone] Social History Tobacco Use Types Packs/Day Years Used Date Smoking Tobacco: Never Assessed Sex and Gender Information Value Date Recorded Sex Assigned at Male 06/12/2023 11:45 EDT Legal Sex Male 18:05 EST Gender Identity Male 10/03/2019 21:06 EDT Sexual Orientation Straight 06/12/2023 11 :45 EDT documented as of this encounter Progress Notes * Jeff Camargo MD - 01/09/2009 0912 EST INPATIENT PROGRESS NOTE Service Date: 09/20/2006 PT LOC: F002 Mr. Scott is a 45-year-old gentleman with a history of craniopharyngioma resection. He has continued cognitive deficits, visual deficit and problems with safety with mobility and self care. Nursing staff has reported that he has had gradual improvement in his impulsivity and therefore they are recommending discontinuation of his one-to-one supervision.Mr. Scott still demonstrates very poor insight into why he is in the hospital. He does recognize that he has had some medical problem, but has difficulty clarifying that it is related to a brain tumor. He denies any significant pain complaints today. Vital signs are stable. He is afebrile. Chest is clear. Heart is regular. Abdomen soft, bowel sounds positive. No calf tenderness or edema is noted. Left facial swelling is improving. His craniotomy is healing nicely. He continues to have disconjugate gaze with strabismus of the left eye. In summary, Mr. Scott is a 45-year-old gentleman status post craniopharyngioma resection. He continues to be appropriate for acute level rehabilitation services for a team approach to his multiple deficits associated with his tumor resection.He will continue acute level therapies including PT, OT, and speech and medical psychology for his multiple deficits. We will continue to monitor pain and minimize sedative medications as possible. Signed by Jeff Camargo MD 09/21/2006 15:49 Jewel Trujillo MD Jeff Camargo MD - Kay Camargo MD [facility] Job ID: [id number] Document ID: [id number] cc: D: - Jeff Camargo MD [facility] [employer] pato Job ID: [id number] Document ID: [id number] cc: documented in this encounter Plan of Treatment Not on file documented as of this encounter Visit Diagnoses Not on filedocumented in this encounter Care Teams Cranberry Bog Supervisor Relationship Specialty Start Date End Date Jason Batres MD [address] [place] [phone] PCP - General 08/13/08 05/24/11 documented as of this encounter
--- OUTSIDE RECORDS SUMMARY | 2024-02-28 16:57 | XMS_ITS | Encounter Summary ---
Author Organization [facility] Address [address] [place] [address] Care Team Providers Care District Operations Manager Name Role Phone Jason Batres MD Primary Care Provi margarita Encounter Details Date Type Department Care Team (Late st Contact Info) Description 09/28/2006 Before PRISM Converted Visit (Maple) [facility] - Maple conversion [address] [place] [address] Jeff Camargo MD [address] [place] [address] [phone] Social History Tobacco Use Types Packs/Day Years Used Date Smoking Tobacco: Never Assessed Sex and Gender Information Value Date Recorded Sex Assigned at Male 06/12/2023 11:45 EDT Legal Sex Male 18:05 EST Gender Identity Male 10/03/2019 21:06 EDT Sexual Orientation Straight 06/12/2023 11 :45 EDT documented as of this encounter Progress Notes * Jeff Camargo MD - 01/10/2009 0058 EST INPATIENT PROGRESS NOTE Service Date: 09/28/2006 PT LOC: F002 Tyler is a 45-year-old gentleman with history of craniopharyngioma resection and neurologic deficits and cognitive deficits postoperatively. He has had continued impulsivity though this has graduallybeen improving during his inpatient hospitalization on the rehabilitation unit. He has had one-to-one supervision to maintain safety while on the unit.He denies any significant pain complaints. He isstill showing some insight deficits into why he is on the rehab service. Nursing reported that he did try and get out of bed on one episode when his one-to-one supervision had been temporarily discontinued. Vital signs are stable. He is afebrile. Chest is clear. Heart is regular. Abdomen soft, bowel sounds positive. frontal craniotomy is healing nicely. Swelling is improving. He continues to have disconjugate gaze. No focal strength deficits are noted. In summary, Mr. Scott is a 45-year-old gentleman status post brain tumor resection. We will follow up endocrine issues with follow-up lab work. He will continue comprehensive rehabilitation services for his cognitive and neurologic deficits. We will monitor wound healing closely. Dr. Segovia will be following along with us to monitor his endocrine issues. Signed by Jeff Camargo MD 10/01/2006 13:14 Jewel Trujillo MD Jeff Camargo MD - Kay Camargo MD [facility] Job ID: [id number] Document ID: [id number] cc: D: - Jeff Camargo MD [facility] Job ID: [id number] Document ID: [id number] cc: documented in this encounter Plan of Treatment Not on file documented as of this encounter Visit Diagnoses Not on filedocumented in this encounter Care Teams District Operations Manager Relationship Specialty Start Date End Date Jason Batres MD [address] [place] [phone] PCP - General 08/13/08 05/24/11 documented as of this encounter
--- OUTSIDE RECORDS SUMMARY | 2024-02-28 16:57 | XMS_ITS | Encounter Summary ---
Author Organization [facility] Address [address] [place] [address] Care Team Providers Care Web Services Professional Name Role Phone Jason Batres MD Primary Care Provi margarita Encounter Details Date Type Department Care Team (Late st Contact Info) Description 10/01/2006 Before PRISM Converted Visit (Maple) [facility] - Maple conversion [address] [place] [address] Artie Preston MD [address] [place] [phone] Social History Tobacco Use Types Packs/Day Years Used Date Smoking Tobacco: Never Assessed Sex and Gender Information Value Date Recorded Sex Assigned at Male 06/12/2023 11:45 EDT Legal Sex Male 18:05 EST Gender Identity Male 10/03/2019 21:06 EDT Sexual Orientation Straight 06/12/2023 11 :45 EDT documented as of this encounter Progress Notes * Artie Preston MD - 01/12/2009 1251 EST INPATIENT PROGRESS NOTE Service Date: 10/01/2006 PT LOC: F002 Mr. Scott is here following a resection at [facility]. He denies any pain, shortness of breath, lightheadedness. continues to have diplopia with left and right gaze. He has improved functionally when using an eye patch, but tends not to utilize it. Temperature 34.4, pulse 66, respirations 16, blood pressure 91/53. Heart is regular. Lungs are clear. Abdomen soft, nontender, bowel sounds present. Calves are soft and nontender.His craniotomy incision remains well approximated. No nystagmus is noted. There is somewhat of a disconjugate gaze, with the right eye lagging greatest. IMPRESSION 1. Craniopharyngioma resection. Continue present therapy program 2. Endocrine. He remains on hydrocortisone supplement as discussed with endocrinology at [facility]. They will follow up with him in approximately one month. 3. Diplopia. Continue to monitor clinically. He may need neuroophthalmology. Signed by Artie Preston MD 10/04/2006 14:14 Gregory Chapman MD Artie Preston MD - Artie Preston MD [employer] [facility] Job ID: [id number] Document ID: [id number] cc: \* MERGEFORMAT Kaelyn Preston MD D: - Artie Preston MD [facility] Job ID: [id number] Document ID: [id number] cc: documented in this encounter Plan of Treatment Not on file documented as of this encounter Visit Diagnoses Not on filedocumented in this encounter Care Teams Web Services Professional Relationship Specialty Start Date End Date Jason Batres MD [address] [place] [phone] PCP - General 08/13/08 05/24/11 documented as of this encounter
--- OUTSIDE RECORDS SUMMARY | 2024-02-28 16:57 | XMS_ITS | Encounter Summary ---
Author Organization [facility] Address [address] [place] [address] Care Team Providers Care Hand Trimmer Name Role Phone Jason Batres MD Primary Care Provi margarita Encounter Details Date Type Department Care Team (Late st Contact Info) Description 09/20/2006 Before PRISM Converted Visit (Maple) [facility] - Maple conversion [address] [place] [address] Marciano Segovia MD [address] [phone] Social History Tobacco Use Types Packs/Day Years Used Date Smoking Tobacco: Never Assessed Sex and Gender Information Value Date Recorded Sex Assigned at Male 06/12/2023 11:45 EDT Legal Sex Male 18:05 EST Gender Identity Male 10/03/2019 21:06 EDT Sexual Orientation Straight 06/12/2023 11 :45 EDT documented as of this encounter Progress Notes * Marciano Segovia MD - 01/10/2009 1334 EST INPATIENT PROGRESS NOTE Service Date: 09/20/2006 PT LOC: F002 Mr. Scott is a 45-year-old recovering from resection of craniopharyngioma. 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 We are awaiting results of thyroid hormonal studies. The patient is more alert today and participating in therapy activities. Temperature 36.1. Pulse 61. Respirations 16. Blood pressure 91/53. Cardiac rhythm is regular. Lung martinez are clear. Abdomen is soft. JVD not visible. Skin is warm and dry. ASSESSMENT AND PLAN 1. Continue comprehensive therapy activities following removal of craniopharyngioma. 2. Followup free T4 and free T3 levels when available. 3. Relatively low blood pressures noted and will be followed. Signed by Marciano Segovia MD 10/01/2006 07:09 Jer Herrera MD Marciano Segovia MD - Marciano Segovia MD P - djandie Job ID: [id number] Document ID: [id number] cc: documented in this encounter Plan of Treatment Not on file documented as of this encounter Visit Diagnoses Not on filedocumented in this encounter Care Teams Hand Trimmer Relationship Specialty Start Date End Date Jason Batres MD [address] [place] [phone] PCP - General 08/13/08 05/24/11 documented as of this encounter
--- OUTSIDE RECORDS SUMMARY | 2024-02-28 16:57 | XMS_ITS | Encounter Summary ---
Author Organization [facility] Address [address] [place] [address] Care Team Providers Care Automotive Generator Repairer Name Role Phone Jason Batres MD Primary Care Provi margarita Encounter Details Date Type Department Care Team (Late st Contact Info) Description 11/30/2006 Before PRISM Converted Visit (Maple) [facility] - Maple conversion [address] [place] [address] Jessica Talbert [facility] [employer] [address] [place] [address] Social History Tobacco Use Types Packs/Day Years Used Date Smoking Tobacco: Never Assessed Sex and Gender Information Value Date Recorded Sex Assigned at Male 06/12/2023 11:45 EDT Legal Sex Male 18:05 EST Gender Identity Male 10/03/2019 21:06 EDT Sexual Orientation Straight 06/12/2023 11 :45 EDT documented as of this encounter Progress Notes * Jessica Talbert - 01/13/2009 1435 EST [facility] SPEECH-LANGUAGE PATHOLOGY PROGRESS REPORT - November 30, 2006 Pt Name: Jeff Scott Pt Address: [address] [place] [id number] Pt MRN: [id number] Date of : 1960 Age: 45 Primary Physician: Chente Gomes MD Referring Physician: Artie Preston MD Diagnosis: Higher-level language deficits (784.60) Secondary Diagnosis: Craniopharyngioma status post resection Date of Onset: 09/13/2006 Dates of Service: 11/06, 11/09, 11/12, 11/14, 11/22, 11/28, 11/30/2006 Name of Provider: Jessica Talbert M.Ed., [facility] [employer] [employer] SUBJECTIVE: Jeff Scott has been pleasant and cooperative during treatment sessions. OBJECTIVE: Following his initial communication evaluation on October 30, 2006, Jeff was seen for seven treatment sessions to address his significant higher- level language deficits status post resection. The status of each of his short- term goals follows: 1. Jeff will listen to paragraph-length spoken information and answer related questions with 80% accuracy: Goal not met independently. Jeffauditory recall improved when he took notes. This goal will be increased to 90% accuracy with use of note taking as a compensatory strategy. 2. Jeff will recall the name of this clinician and the purpose of speech- language pathology ([employer]) intervention following a maximum delay of 48 hours: This goal has not been met. Jeff clearly recognizes this clinicians face but has not been able to remember this clinicians name or the purpoof MA[employer]GER [employer] MARK[employer] services despite frequent review and discussion. He has been cued to look at this clinicians name mack. Information has been written down in Scottjournal for his reference as well. A revised goal will be: ???Jeff will refer to his journal for information about his therapies and daily activities without cues.?? 3. Jeff will complete basic deductive reasoning tasks with 80% accuracy: This goal has not been met independently. is able to perform with this degree of accuracy when moderate structure and cues are provided. addition to his visual processing difficulties, he appears to have trouble managing multiple pieces of information and synthesizing them in a logical way. This goal will be continued. ASSESSMENT: Speech-language pathology services are underway. Jeff is becoming increasingly stimulableto use compensatory strategies (e.g., note taking) to facilitate his auditory retention of spokeninformation. He continues to demonstrate significant short-term memory deficits; he has a journal which his writesin to help him with recall of his day-to-day activities. Jeff will need furthertraining in order to independently access his journal and accurately relay information about recentevents. Jeff has been able to complete deductive reasoning tasks with moderate structure and cues.He will benefit from further intervention to his higher-level language recovery. Education is ongoing to increase Moe awareness regarding his memory problem and his need for intervention and compensation. RECOMMENDATIONS: It is recommended Jeff continue to participate in outpatient speech-language pathology services twice per week for four more weeks. Short- term goals will be addressed as delineated herein. Emphasis will be placed on means of compensation, both external and independent. Jeff may require some degree of long-term supervision or assistance. A family/team meeting is planned to discuss Jeffprogress and future considerations. Please contact me with any questions or concerns regarding this report. Signed by Jessica Talbert M.Ed., [facility] 12/07/2006 08:46 Hieu Talbert M.Ed., [facility] [employer] [employer] Speech-Language Pathologist cc: MD Artie Noble MD Karen M. Leary, M.Ed., [facility] [employer] [employer] - Jessica Talbert M.Ed., [facility] [employer] [employer] A - plf Job ID: [id number] Document ID: [id number] - Jessica Talbert M.Ed., [facility] [employer] A - plf Job ID: [id number] Document ID: [id number] documented in this encounter Plan of Treatment Not on file documented as of this encounter Visit Diagnoses Not on filedocumented in this encounter Care Teams Automotive Generator Repairer Relationship Specialty Start Date End Date Jason Batres MD [address] [place] [phone] PCP - General 08/13/08 05/24/11 documented as of this encounter
--- OUTSIDE RECORDS SUMMARY | 2024-02-28 16:57 | XMS_ITS | Encounter Summary ---
Author Organization [facility] Address [address] [place] [address] Care Team Providers Care Fiberglass Insulation Installer Name Role Phone Jason Batres MD Primary Care Provi margarita Encounter Details Date Type Department Care Team (Late st Contact Info) Description 10/15/2006 Before PRISM Converted Visit (Maple) [facility] - Maple conversion [address] [place] [address] Marciano Segovia MD [address] [phone] Social History Tobacco Use Types Packs/Day Years Used Date Smoking Tobacco: Never Assessed Sex and Gender Information Value Date Recorded Sex Assigned at Male 06/12/2023 11:45 EDT Legal Sex Male 18:05 EST Gender Identity Male 10/03/2019 21:06 EDT Sexual Orientation Straight 06/12/2023 11 :45 EDT documented as of this encounter Progress Notes * Marciano Segovia MD - 01/07/2009 0219 EST INPATIENT PROGRESS NOTE Service Date: 10/15/2006 PT LOC: F002 Mr. Barnes is a 45-year-old status post resection of craniopharyngioma. Medical issues include hypocorticalismhypotension. He is participating actively in the therapy program. No complaints of fever,chills, or sweats. Temperature is 36.9, pulse 78, respirations 16, blood pressure 95/58. Cardiac rhythm is regular. Lung martinez are clear. Abdomen is soft. JVD is not visible. The cervical wound continues to heal. ASSESSMENT AND PLAN 1. Continue comprehensive therapy activities following resection of craniopharyngioma. 2. Maintain hydrocortisone therapy for hypocortisolism. 3. Follow up free T3 and TSH in approximately four weeks. 4. Continue monitoring relatively low blood pressures with persistent hypotension noted. Signed by Marciano Segovia MD 10/17/2006 15:32 Jer Herrera MD Marciano Segovia MD - Marciano Segovia MD [employer] Job ID: [id number] Document ID: [id number] cc: \* MERGEFORMAT Jacob Segovia MD D: - Marciano Segovia MD [employer] Job ID: [id number] Document ID: [id number] cc: documented in this encounter Plan of Treatment Not on file documented as of this encounter Visit Diagnoses Not on filedocumented in this encounter Care Teams Fiberglass Insulation Installer Relationship Specialty Start Date End Date Jason Batres MD [address] [place] [phone] PCP - General 08/13/08 05/24/11 documented as of this encounter
--- OUTSIDE RECORDS SUMMARY | 2024-02-28 16:57 | XMS_ITS | Encounter Summary ---
Author Organization [facility] Address [address] [place] [address] Care Team Providers Care Cheese Production Supervisor Name Role Phone Jason Batres MD Primary Care Provi margarita Encounter Details Date Type Department Care Team (Late st Contact Info) Description 10/04/2006 Before PRISM Converted Visit (Maple) [facility] - Maple conversion [address] [place] [address] Artie Preston MD [address] [place] [phone] Social History Tobacco Use Types Packs/Day Years Used Date Smoking Tobacco: Never Assessed Sex and Gender Information Value Date Recorded Sex Assigned at Male 06/12/2023 11:45 EDT Legal Sex Male 18:05 EST Gender Identity Male 10/03/2019 21:06 EDT Sexual Orientation Straight 06/12/2023 11 :45 EDT documented as of this encounter Progress Notes * Artie Preston MD - 01/12/2009 1413 EST INPATIENT PROGRESS NOTE Service Date: 10/04/2006 PT LOC: F002 Mr. Scott is here following craniopharyngioma resection. Denies any pain, shortness of breath. He continues to have diplopia. Temperature 36.5. Pulse 68. Respirations 16. Blood pressure 95/66. Heart is regular. Lungs are clear. Abdomen soft, nontender. Bowel sounds present. Calves soft and nontender. No evidence of skin breakdown or focal motor weakness. He does have gait instability. IMPRESSION 1. Craniopharyngioma resection: Continue present therapy program. Continues to make gains, but doesrequire ongoing one-to-one supervision for safety.. 2. Endocrine: Continue present hydrocortisone treatment. Signed by Artie Preston MD 10/18/2006 13:20 Gregory Chapman MD Artie Preston MD - Artie Preston MD A - Job ID: [id number] Document ID: [id number] cc: documented in this encounter Plan of Treatment Not on file documented as of this encounter Visit Diagnoses Not on filedocumented in this encounter Care Teams Cheese Production Supervisor Relationship Specialty Start Date End Date Jason Batres MD [address] [place] [phone] PCP - General 08/13/08 05/24/11 documented as of this encounter
--- OUTSIDE RECORDS SUMMARY | 2024-02-28 16:57 | XMS_ITS | Encounter Summary ---
Author Organization [facility] Address [address] [place] [address] Care Team Providers Care Spout Positioner Name Role Phone Jason Batres MD Primary Care Provi margarita Encounter Details Date Type Department Care Team (Late st Contact Info) Description 10/16/2006 Before PRISM Converted Visit (Maple) [facility] - Maple conversion [address] [place] [address] Marciano Segovia MD [address] [phone] Social History Tobacco Use Types Packs/Day Years Used Date Smoking Tobacco: Never Assessed Sex and Gender Information Value Date Recorded Sex Assigned at Male 06/12/2023 11:45 EDT Legal Sex Male 18:05 EST Gender Identity Male 10/03/2019 21:06 EDT Sexual Orientation Straight 06/12/2023 11 :45 EDT documented as of this encounter Progress Notes * Marciano Segovia MD - 01/10/2009 0109 EST INPATIENT PROGRESS NOTE Service Date: 10/16/2006 PT LOC: Mr. Scott is a 45-year-old recovering from resection of craniopharyngioma. He has resultant hypocortisolismrequiring hydrocortisone therapy. He thus far has maintained normal thyroid studies and is not presently on thyroid hormone supplementation. Other issues have included relative hypotension which has improved over the last several days. Vital signs are stable. Patient is afebrile. Medical status is suitable for planned discharge today. Follow-up medical care arrangements are in place including follow-up of hormonal status. Signed by Marciano Segovia MD 10/30/2006 06:32 Jer Herrera MD Marciano Segovia MD - Marciano Segovia MD A - Job ID: [id number] Document ID: [id number] cc: documented in this encounter Plan of Treatment Not on file documented as of this encounter Visit Diagnoses Not on filedocumented in this encounter Care Teams Spout Positioner Relationship Specialty Start Date End Date Jason Batres MD [address] [place] [phone] PCP - General 08/13/08 05/24/11 documented as of this encounter
--- OUTSIDE RECORDS SUMMARY | 2024-02-28 16:57 | XMS_ITS | Encounter Summary ---
Author Organization [facility] Address [address] [place] [address] Care Team Providers Care Wharf Hand Name Role Phone Jason Batres MD Primary Care Provi margarita Encounter Details Date Type Department Care Team (Late st Contact Info) Description 10/02/2006 Before PRISM Converted Visit (Maple) [facility] - Maple conversion [address] [place] [address] Marciano Segovia MD [address] [phone] Social History Tobacco Use Types Packs/Day Years Used Date Smoking Tobacco: Never Assessed Sex and Gender Information Value Date Recorded Sex Assigned at Male 06/12/2023 11:45 EDT Legal Sex Male 18:05 EST Gender Identity Male 10/03/2019 21:06 EDT Sexual Orientation Straight 06/12/2023 11 :45 EDT documented as of this encounter Progress Notes * Marciano Segovia MD - 01/12/2009 1400 EST INPATIENT PROGRESS NOTE Service Date: 10/02/2006 PT LOC: F002 Mr. 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 Medical issues include hypotension and hypocortisolism. Patient is on hydrocortisone supplementation. Follow-up thyroid studies arenow available with a TSH of 2.74, free T3 of 2.3 and free T4 of 0.9. These are largely stable from two and a half weeks ago. The TSH has come up somewhat, but remains in the normal range. The free T4has gone without significant change as has the free T3. Patient continues to participate actively in the therapy program. No complaints of pain. Temperature 37.3. Pulse 72. Respirations 16. Blood pressure 85/52. Cardiac rhythm is regular. Lung martinez are clear. Abdomen is soft. JVD is not visible. ASSESSMENT AND PLAN 1. Status post craniopharyngioma resection: Continue comprehensive therapy activity. 2. Continue hydrocortisone therapy for hypocortisolism. 3. In spite of the potential risk for hypothyroidism due to pituitary damage, he appears to have adequate thyroid hormonal status at this point. We will continue to monitor on a periodic basis. 4. Relative hypotension is noted. Continue to follow. Thus far, this is not associated with significant symptoms. Signed by Marciano Segovia MD 10/05/2006 14:27 Jer Herrera MD Marciano Segovia MD - Marciano Segovia MD A - Job ID: [id number] Document ID: [id number] cc: documented in this encounter Plan of Treatment Not on file documented as of this encounter Visit Diagnoses Not on filedocumented in this encounter Care Teams Wharf Hand Relationship Specialty Start Date End Date Jason Batres MD [address] [place] [address] [phone] PCP - General 08/13/08 05/24/11 documented as of this encounter
--- OUTSIDE RECORDS SUMMARY | 2024-02-28 16:57 | XMS_ITS | Encounter Summary ---
Author Organization [facility] Address [address] [place] [address] Care Team Providers Care Regulatory Compliance Engineer Name Role Phone Jason Batres MD Primary Care Provi margarita Encounter Details Date Type Department Care Team (Late st Contact Info) Description 10/10/2006 Before PRISM Converted Visit (Maple) [facility] - Maple conversion [address] [place] [address] Marciano Segovia MD [address] [phone] Social History Tobacco Use Types Packs/Day Years [...] 0220 EST INPATIENT PROGRESS NOTE Service Date: 10/10/2006 PT LOC: F002 Mr. Scott is a 45-year-old status post resection of craniopharyngioma. Night sheets reviewed. Patient tolerating the therapy program. Vital signs are stable. Patient is afebrile. Medical status is suitable to continue full program activities. Signed by Marciano Segovia MD 10/22/2006 09:07 Jason Segovia, [facility] MD Marciano Segovia MD - Marciano Segovia MD P - lr Job ID: [id number] Document ID: [id number] cc: \* MERGEFORMAT Marciano Segovia MD - Marciano Segovia MD P - lr Job ID: [id number] Document ID: [id number] cc: documented in this encounter Plan of Treatment Not on file documented as of this encounter Visit Diagnoses Not on filedocumented in this encounter Care Teams Regulatory Compliance Engineer Relationship Specialty Start Date End Date Jason Batres MD [address] [place] [phone] PCP - General 08/13/08 05/24/11 documented as of this encounter
--- OUTSIDE RECORDS SUMMARY | 2024-02-28 16:57 | XMS_ITS | Encounter Summary ---
Author Organization [facility] Address [address] [place] [address] Care Team Providers Care Pan Devulcanizer Helper Name Role Phone Jason Batres MD Primary Care Provi margarita Encounter Details Date Type Department Care Team (Late st Contact Info) Description 10/09/2006 Before PRISM Converted Visit (Maple) [facility] - Maple conversion [address] [place] [address] Jeff Camargo MD [address] [place] [address] [phone] Social History Tobacco Use Types Packs/Day Years Used Date Smoking Tobacco: Never Assessed Sex and Gender Information Value Date Recorded Sex Assigned at Male 06/12/2023 11:45 EDT Legal Sex Male 18:05 EST Gender Identity Male 10/03/2019 21:06 EDT Sexual Orientation Straight 06/12/2023 11 :45 EDT documented as of this encounter Progress Notes * Jeff Camargo MD - 01/12/2009 1538 EST INPATIENT PROGRESS NOTE Service Date: 10/09/2006 PT LOC: F002 Mr. Scott is a 45-year-old gentleman status post craniopharyngioma resection with ongoing cognitivedeficits, significant diplopia and ongoing impulsivity requiring one-to-one supervision. He was reviewed extensively in team conference today. Please refer to the team conference form which was reviewed and signed by me for details. We have ongoing concerns about his need for close, 24 hour supervision for the foreseeable future. This adds a significant challenge to his discharge planning. Thus far, we do not have a specified discharge date. Mr. Scott denies any specific new complaints today. He continues to have significant diplopia. He denies any significant pain. Vitals are stable. He is afebrile. Chest is clear to auscultation bilaterally. Heart regular rate and rhythm. Abdomen soft. Bowel sounds positive. No calf tenderness or edema is noted. His cranial incision is healing well. He continues to have significant ocular movement disorders. In summary, Mr. Scott is a 45-year-old gentleman status post craniopharyngioma resection with ongoing cognitive and functional issues. We will continue acute level rehabilitation services and be working on discharge planning with his family. Thus far, there is no clear, safe discharge. He will continue one-to-one supervision for impulsivity and safety issues. Signed by Jeff Camargo MD 10/15/2006 13:27 Jewel Trujillo MD Jeff Camargo MD - Jeff Camargo MD P - eh Job ID: [id number] Document ID: [id number] cc: documented in this encounter Plan of Treatment Not on file documented as of this encounter Visit Diagnoses Not on filedocumented in this encounter Care Teams Pan Devulcanizer Helper Relationship Specialty Start Date End Date Jason Batres MD [address] [place] [phone] PCP - General 08/13/08 05/24/11 documented as of this encounter
--- OUTSIDE RECORDS SUMMARY | 2024-02-28 16:57 | XMS_ITS | Encounter Summary ---
Author Organization [facility] Address [address] [place] [address] Care Team Providers Care Client Technical Support Associate Name Role Phone Jason Batres MD Primary Care Provi margarita Encounter Details Date Type Department Care Team (Late st Contact Info) Description 10/05/2006 Before PRISM Converted Visit (Maple) [facility] - Maple conversion [address] [place] [address] Artie Preston MD [address] [place] [phone] Social History Tobacco Use Types Packs/Day Years Used Date Smoking Tobacco: Never Assessed Sex and Gender Information Value Date Recorded Sex Assigned at Male 06/12/2023 11:45 EDT Legal Sex Male 18:05 EST Gender Identity Male 10/03/2019 21:06 EDT Sexual Orientation Straight 06/12/2023 11 :45 EDT documented as of this encounter Progress Notes * Artie Preston MD - 01/12/2009 5091 EST INPATIENT PROGRESS NOTE Service Date: 10/05/2006 PT LOC: F002 Mr. Scott is here a craniopharyngioma resection. He denies any pain or shortness of breath, but he has ongoing diplopia. He is sleeping well. Temperature 36.7, pulse 70, respirations 16, blood pressure 96/52. Heart is regular. Lungs are clear. Abdomen soft, nontender, bowel sounds present. Calves are soft and nontender. No focal motor weakness.He remains with disconjugate gaze. He is retropulsive with gait. IMPRESSION 1. Craniopharyngioma resection. Making overall progress. Continue one-to-one supervision however given gait instability and poor insight. 2. Diplopia. Stable at this time. Continue patching for correction with regards to compensation. Signed by Artie Preston MD 10/18/2006 13:20 Gregory Chapman MD Artie Preston MD - Artie Preston MD [facility] Job ID: [id number] Document ID: [id number] cc: \* MERGEFORMAT Kaelyn Preston MD D: - Artie Preston MD [facility] Job ID: [id number] Document ID: [id number] cc: documented in this encounter Plan of Treatment Not on file documented as of this encounter Visit Diagnoses Not on filedocumented in this encounter Care Teams Client Technical Support Associate Relationship Specialty Start Date End Date Jason Batres MD [address] [place] [phone] PCP - General 08/13/08 05/24/11 documented as of this encounter
--- OUTSIDE RECORDS SUMMARY | 2024-02-28 16:57 | XMS_ITS | Encounter Summary ---
Author Organization [facility] Address [address] [place] [address] Care Team Providers Care Cafeteria Supervisor Name Role Phone Jason Batres MD Primary Care Provi margarita Encounter Details Date Type Department Care Team (Late st Contact Info) Description 10/26/2006 Results Only [facility] Medicine [address] [id number] Clau Joseph MD [address] [facility], [address] [place], [place] [phone] Social History Tobacco Use Types Packs/Day Years [...] Date/Time Associated Diagnosis Comments COMPLETE BLOOD COUNT AND DIFFERENTIAL Routine 10/26/2006 14:51 EDT BASIC METABOLIC PANEL (BMP) Routine 10/26/2006 14:51 EDT documented in this encounter Results * (ABNORMAL) HEMAGRAM AND DIFFERENTIAL (10/26/2006 14:51 EDT) WBC 17.00(H) 4.0 - 10.4 K/cmm [facility] RBC 4.09(L) 4.36 - 5.78 M/cmm [facility] Hemoglobin 13.1(L) 13.8 - 17.3 gm/dl [facility] HCT 37.8(L) 39.5 - 50.2 % [facility] MCV 92 81 - 95 fl [facility] MCH 32.0 27.6 - 33.0 pg [facility] MCHC 34.6 32.8 - 36.4 gm/dl [facility] PLT 215 141 - 320 K/cmm [facility] RDW-CV 11.4(L) 11.8 - 14.1 % [facility] Comment:Performed at [facility] [place], [place] % Neutrophils 86.3(H) 45.5 - 79.7 % [facility] % Lymphocytes 7.0(L) 15.0 - 46.8 % [facility] % Monocytes 6.1 1.8 - 12.0 % [facility] % Eosinophils 0.2(L) 0.6 - 6.9 % [facility] % Basophils 0.4 0.2 - 1.4 % [facility] ABS Neutrophils 14.70(H) 2.20 - 8.85 K/cmm [facility] ABS Lymphs 1.18 1.09 - 3.30 K/cmm [facility] ABS Monocytes 1.04(H) 0.1 - 0.8 K/cmm [facility] ABS Eosinophils 0.04 0.03 - 0.61 K/cmm [facility] ABS Basophils 0.08 0.01 - 0.11 K/cmm [facility] Type of Diff: Automated [facility] 10/26/2006 14:5 1 EDT 10/26/2006 15:12 EDT us Clau Joseph MD PACKAGES & DNA PROBE ORDER ELIU Final Result [facility] [address] [place] [address] * (ABNORMAL) BASIC METABOLIC PANEL (10/26/2006 14:51 EDT) Sodium 142 136 - 145 mEq/L [facility] Potassium 3.5 3.5 - 5.0 mEq/L [facility] Chloride 96 96 - 110 mEq/L [facility] CO2 29 24 - 32 mEq/L [facility] BUN 14 10 - 26 mg/dl [facility] Creatinine 0.90 0.7 - 1.5 mg/dl [facility] GFR, Calculated >60 ml/min/1.7 3m2 [facility] Calcium 8.9 8.5 - 10.5 mg/dl [facility] Calculated Calcium 8.9 8.5 - 10.5 mg/dl [facility] Glucose, Serum 128(H) 70 - 100 mg/dl [facility] Fasting? No Performed at [facility], [place], [place] [facility] 10/26/2006 14:5 1 EDT 10/26/2006 15:12 EDT us Clau Joseph MD CHEMISTRY & BLOOD GAS [facility] Final Result [facility] [address] [place] [address] documented in this encounter Visit Diagnoses Not on filedocumented in this encounter Care Teams Cafeteria Supervisor Relationship Specialty Start Date End Date Jason Batres MD [address] [place] [phone] PCP - General 08/13/08 05/24/11 documented as of this encounter
--- OUTSIDE RECORDS SUMMARY | 2024-02-28 16:57 | XMS_ITS | Encounter Summary ---
Author Organization [facility] Address [address] [place] [address] Care Team Providers Care Charter Boat Operator Name Role Phone Jason Batres MD Primary Care Provi margarita Encounter Details Date Type Department Care Team (Late st Contact Info) Description 11/23/2006 Before PRISM Converted Visit (Maple) [facility] - Maple conversion [address] [place] [address] Gay Beach, PT [address] [place] [phone] Social History Tobacco Use Types Packs/Day Years Used Date Smoking Tobacco: Never Assessed Sex and Gender Information Value Date Recorded Sex Assigned at Male 06/12/2023 11:45 EDT Legal Sex Male 18:05 EST Gender Identity Male 10/03/2019 21:06 EDT Sexual Orientation Straight 06/12/2023 11 :45 EDT documented as of this encounter Progress Notes * Gay Beach, PT - 01/10/2009 6816 EST [facility] PHYSICAL THERAPY PROGRESS/RECERTIFICATION NOTE SERVICE DATE: 11/23/2006 REFERRING PROVIDER: Artie Preston MD PRIMARY CARE PROVIDER: Chente Gomes MD DIAGNOSIS/ONSET/ICD9#: 1. Gait abnormality / 09-06-2006 / 781.2 2. Unspecified behavior neoplasm of pituitary gland / 09-06-2006 / 237.0 PRECAUTIONS: Diplopia and fall risk SUBJECTIVE The patient reports that his hip feels a little bit better today. He states that he continues to have pain in his left hip, which he rates currently as a 0/10, with it being a 6-7/10 at the worst. Hestates that the pain is a dull ache and occurring intermittently. He finds that walking seems to aggravate his pain and that rest seems to help to reduce it. OBJECTIVE The patient has been receiving physical therapy two times a week for 60-minute treatment sessions. Interventions have included gait training, balance retraining, strengthening exercises, joint mobilization for left hip pain, stair training and patient education. The patients status is as follows: GAIT The patient completed 1532 feet in six-minute walk test without an assistive device, which is improved from 1468 feet when tested on October 22, 2006. He does report mild left hip pain at end distanceof ambulation. The patient ambulated outside without assistive device with supervision. He demonstrates intermittent difficulty with awareness of curbing, primarily either stepping off to early or coming extremely close to catching his toe when going to step up. He was able to clear the curb today without issue; however, this could be a potential risk factor for falls. BALANCE The patient scored a 23/24 on the Dynamic Gait Index. He demonstrates a mild deviation in gait pattern with looking up and down. OTHER The patient is independent with current home exercise program for knee to chest, trunk rotation andcat camel stretch. Patient was able to nut picker several objects off the floor today safely and independently. Patient was able to recall 75% of his therapy session today and with minimal verbal cueingwas able to remember the rest of his session. STAIRS The patient negotiated up and down one flight of stairs with a railing independently reciprocally and without a railing independently reciprocally. ASSESSMENT The patient has made excellent progress in physical therapy to date. I feel that his diplopia and other vision issues are his primary problem relating to safety in the community and intermittently inhis home. He demonstrates improved balance as noted by the Dynamic gait index. Overall he is getting around safely on inside surfaces; however, does have a decreased awareness of things on the floor,which potentially pose as a risk for him falling. I feel that as his vision improves this will alsoimprove and it is more of a vision issue versus a balance issue. Also his left hip pain continues to be problematic, limiting his overall activity tolerance, especially for ambulation. I feel that patient will benefit from continued skilled physical therapy to address pain management for his left hip as well as to challenge him with advanced balance activities and improve safety for community functioning. The patients status in relation to goal set on initial evaluation is as follows: STG: Two weeks. 1. Dynamic Gait Index score of 22/24. (Met) 2. Patient will be distant supervision for ambulation outdoors and in community. (Progressing) 3. Patient will be independent up and down a flight of stairs with rail. (Met) 4. Patient will be independent ambulating indoors with no device. (Met) 5. Patient will be able to recall 80% of events during physical therapy session at the end of the treatment session. (Met) 6. Patient tolerates an initiation of leg strengthening and balance program without an increase in left hip pain. (Ongoing) 7. Patient able to pick objects off floor independently and safely. (Met) LTG: Six to eight weeks 1. Patient will be independent up and down a flight of stairs with no rail. (Progressing) 2. Patient will be independent for outdoor and community ambulation in familiar places. (Ongoing) 3. Patient will increase six-minute walk test distance by 500 feet without an increase in left hip pain. (Progressing) 4. Patient is independent in his home exercise program. (Progressing) 5. Patient will be able to recall 100% of events during PT session at end of session. (Progressing) 6. Dynamic Gait Index score of 24/24. (Progressing) 7. Patient will be independent in recovering from loss of balance during high- level balance challenges. (Progressing) NEW GOAL Patient to report pain less than or equal to 4/10 at all times in his left hip to allow increased activity tolerance. PLAN INTERVENTION/FREQUENCY Continue physical therapy two times a week for 60-minute treatment sessions. Interventions to include therapeutic exercises, balance retraining, gait training, patient education regarding home exercise program and safety and joint mobilizations for left hip. DISCONTINUE PLAN When goals are met or progress plateaus; anticipate approximately four weeks. Thank you for this referral. Signed by Gay Beach, PT 11/28/2006 16:21 ARebecca E LoukTeddy martinez PT Gay Beach PT cc: MD Artie Noble MD - [place] PT A - ctl Job ID: [id number] Document ID: [id number] documented in this encounter Plan of Treatment Not on file documented as of this encounter Visit Diagnoses Not on filedocumented in this encounter Care Teams Charter Boat Operator Relationship Specialty Start Date End Date Jason Batres MD [address] [place] [phone] PCP - General 08/13/08 05/24/11 documented as of this encounter
--- OUTSIDE RECORDS SUMMARY | 2024-02-28 16:57 | XMS_ITS | Encounter Summary ---
Author Organization [facility] Address [address] [place] [address] Care Team Providers Care Medical Economics Consultant Name Role Phone Jason Batres MD Primary Care Provi margarita Encounter Details Date Type Department Care Team (Late st Contact Info) Description 10/30/2006 Before PRISM Converted Visit (Maple) [facility] - Maple conversion [address] [place] [address] Jessica Talbert [facility] [address] [place] [address] Social History Tobacco Use Types Packs/Day Years [...] this encounter Visit Diagnoses * Evaluation - Jessica Talbert - 01/08/2009 1809 EST [facility] [place] FOR DISORDERS OF COMMUNICATION COMMUNICATION EVALUATION - October 30, 2006 Pt Name: Jeff Scott Pt Address: [address] [place] [id number] Pt MRN: [id number] Date of : 1960 Age: 45 Primary Physician: Chente Gomes MD Referring Physician: Artie Preston MD Diagnosis: Higher-level language deficits (784.60) Secondary Diagnosis: Craniopharyngioma status post resection Date of Onset: 09/13/2006 Date of Referral: 10/02/2006 Date of Service: 10/30/2006 Name of Provider: Jessica Talbert M.Ed., [facility] MEDICAL HISTORY: Jeff Scott is status post resection of a left craniopharyngioma, which resulted in vision changes, gait instability, reduced short-term memory, and confusion. He participated in a course of inpatient rehabilitation and made steady gains. He was discharged home with 24-hour supervision on October 16, 2006. Jeff is currently being treated for bacterial pneumonia. He has low blood pressure and is experienciincreased fatigue; he takes frequent naps. Jeff has a history of osteoarthritis and chronic pain. He is currently taking an antiseizure medication and an antidepressant. CURRENT EVALUATION: Patient/Spouse Interview: Moe , Nguyen, accompanied him today. Jeff expressed significant concern regarding his double vision and his present inability to read or write. His shared that his problem solving and decision making capacities are weaker now. He demonstrates limited initiation a nd is more sedentary. Nguyen indicated Moe short-term memory skills are improving. They both feel Jeff can participate in family conversations adequately. Attention/Concentration: At times, Jeff was noted to lose concentration during structured testing today. He would sometimes forget thequestion asked and/or lose the thread of his response. He was tangential in his commentary on one occasion. Orientation: Jeff is oriented to self and the present month. He was unable to specifically identify his current location or the day/dateHe could not recall the name of his current physician. Recall: Jeff performed as follows on selected subtests from the Ross Information Processing Assessment-Second Edition (RIPA-2): Immediate Memory at 87%; Recent Memory at 56%. Jeff had particular difficulty retaining lengthier spoken information. His recall of recent events was vague or incorrect and he was unable to remember three items after a 5- to 10-minute delay. Jeff has a memory book, which he is having difficulty using due to his vision difficulties. Auditory Comprehension and Verbal ExpressionScott demonstrates adequate auditory comprehension during social conversation. He is fluent and demonstrates adequate word finding skills during connected speech. He was able to complete a picture description task with adequate expressive formulation and interpretation. Reading and Writing: These areas were not assessed today due to Moe significant vision deficits.This clinician will talk with his occupational therapist regarding means of best approaching visually-based tasks. Organization: The Organization subtest from the RIPA-2was administered; Jeff scored 77%. He was slow to generate the names of items within given categories. His thinking seemed somewhat disorganizedor random. Problem Solving / ReasoningThe Problem Solving and Abstract Reasoning subtest from the RIPA-2was administered; Jeff scored 73%. He had some difficulty generating complete, logical solutions to functional problems. He also demonstrated some thought inflexibility or difficulty with critical thinking. MindyfeNguyen, shared that this is an area of particular concern in her mind, along with decreased initiation and reduced decision making capacities. Speech Intelligibility: Moe speech is clear. He does not demonstrate any orofacial weakness. CLINICAL IMPRESSIONS: Jeff Scott is a 45-year-old man who underwent resection of a left on September 13, 2006. He experienced cognitive-linguistic changes, diplopia, andgait instability as a result. He made progress during an inpatient rehabilitation stay and is now home with 24-hour supervision. An outpatient communication evaluation was completed today as per Dr. Artie Pete. Jeff presentswith significant short-term memory deficits. He also demonstrates mild to moderate impairments in the areas of working memory, organization, problem solving, and abstract reasoning. He demonstrates functional auditory comprehension and expression abilities. Jeff is aware of certain changes in himself but lacksfull insight regarding his current deficits. From a behavioral standpoint, he demonstrates blunted facial affect, some mild disinhibition, and reduced initiation. Jeff will require ongoing intervention to further his recovery of memory and critical thinking skills. His prognosis for improvement is considered positive. Education was reinforced regarding brain injury and related changes. RECOMMENDATIONS: It is recommended Jeff receive outpatient speech-language pathology services twice per week for a minimum of weeks. Short-term goals will include: 1) Jeff will listen to paragraph-length spoken information and answer related questions with 80% accuracy; 2) Jeff will recall the name ofthis clinician and the purpose of [facility] therapy following a maximum delay of 48 hours; and 3) Jeff will complete basic deductive reasoning tasks with 80% accuracy. and his are in agreement with this plan; services will be provided pending insurance prior authorization. Thank you for this referral. Please contact me with any questions or concerns. Signed by Jessica Talbert M.Ed., [facility] 10/31/2006 16:20 Jessica Talbert M.Ed., [facility] Speech-Language Pathologist Jun Talbert M.Ed., [id number]-Exqzawjo PathologistJessica Talbert M.Ed., [facility] cc: MD Artie Noble MD Karen M. Leary, M.Ed., [facility] - Jessica Talbert M.Ed., [facility]; P - plf; Job ID: [id number] Document ID: [id number] cc: MD Artie Noble MD Karen M. Leary M.Ed., [facility] - Jessica Talbert M.Ed., [facility] P - plf Job ID: [id number] Document ID: [id number] documented in this encounter Care Teams Medical Economics Consultant Relationship Specialty Start Date End Date Jason Batres MD [address] [place] [phone] PCP - General 08/13/08 05/24/11 documented as of this encounter
--- OUTSIDE RECORDS SUMMARY | 2024-02-28 16:57 | XMS_ITS | Encounter Summary ---
Author Organization [facility] Address [address] [place] [address] Care Team Providers Care Toy Mechanic Name Role Phone Jason Batres MD Primary Care Provi margarita Encounter Details Date Type Department Care Team (Late st Contact Info) Description 10/16/2006 Before PRISM Converted Visit (Maple) [facility] - Maple conversion [address] [place] [address] Jeff Camargo MD [address] [place] [id number] Social History Tobacco Use Types Packs/Day Years Used Date Smoking Tobacco: Never Assessed Sex and Gender Information Value Date Recorded Sex Assigned at Male 06/12/2023 11:45 EDT Legal Sex Male 18:05 EST Gender Identity Male 10/03/2019 21:06 EDT Sexual Orientation Straight 06/12/2023 11 :45 EDT documented as of this encounter Discharge Summaries * Jeff Camargo MD - 05/29/2010 0953 EDT DISCHARGE SUMMARY Admission Date: 09/13/2006 Discharge Date: 10/16/2006 DISCHARGE DIAGNOSES 1. Status post craniopharyngioma resection through orbitozygomatic craniotomy on September 06, 2006. 2. Chronic diplopia and ophthalmoplegia. 3. Ongoing cognitive deficits and balance issues. 4. Chronic back pain. 5. Osteoarthritis. 6. Pituitary dysfunction. 7. Thyroid dysfunction. HISTORY OF PRESENT ILLNESS Mr. Tyler is a 45-year-old gentleman who has the above-mentioned diagnosis of craniopharyngioma resection, which became symptomatic approximately nine months ago when he started having some mood alteration and behavioral issues. It took quite some time tofinally get the diagnosis of craniopharyngioma and he went for resection of that in September. He had some new cognitive deficits and other hormonal dysfunctions postoperatively, and linguistic deficits as well as attention, visual, perception, organization, and orientation problems. He also presented with ongoing balance deficits. This constellation of multiple postoperative and preoperative symptoms led to an acute inpatient rehabilitation stay. COURSE IN THE [facility]AB[facility] While on the rehab unit, he continued to be monitored for his thyroid function, which remained stable. He continued hydrocortisone orally for management of pituitary dysfunction. There was some hyperphasia and slight weight gain associated with this, but at this point it is recommended he continue this medication until followup with endocrinology. His scalp wound healed without any difficulties, but he continued to have significant ophthalmoplegia with upward to downward gaze deficits, as well as lateral gaze deficits with adduction weakness on the right, more so than the left. This diplopia was one of the main limiting factors in his functional abilities due to it complicating his balance deficits. He continued to have impulsivity and poor insight requiring a recommendation for 24-hour close supervision at discharge to make sure he maintains appropriate safety. His was present for several days prior to discharge to monitor his therapies and be educated about his needs. At this point she will need to provide 24-hour supervision for him due to his balance deficits and safety awareness deficits. Discharge followup has been arranged with Dr. Cao in the Department of Neurosurgery at [facility]. Also, endocrinology followup has been scheduled. We defer to Dr. Edmondson arrange an appropriate neuroophthalmology evaluation to further assess the ocular movement dysfunction. Outpatient PT, OT, and speech and language pathology services were recommended for continued maximization of functional gains. DISCHARGE MEDICATIONS 1. Colace 100 mg twice daily. 2. Neurontin 600 mg twice daily. 3. Cortef 20 mg in the morning, 10 mg in the afternoon. 4. Protonix 40 mg twice a day. 5. Senna two tablets daily. 6. Venlafaxine 75 mg daily. 7. Tylenol 650 mg every four hours p.r.n. 8. Ibuprofen 200-400 mg every six hours as needed. Signed by Jeff Camargo MD 10/22/2006 10:11 Jewel Trujillo MD - Jeff Camargo MD P - sb Job ID: [id number] Document ID: [id number] cc: MD Chente Kelley MD Roger C Knakal, MD Nathan Simmons, MD Department of Endocrinology at [facility]* Department of Neuroophthalmology at [facility]* \* MERGEFORMAT - Jeff Camargo MD P - sb Job ID: [id number] Document ID: [id number] cc: MD Chente [place] MD Roger C Knakal, MD Nathan Simmons, MD Department of Endocrinology at [facility]* Department of Neuroophthalmology at [facility]* documented in this encounter Plan of Treatment Not on file documented as of this encounter Visit Diagnoses Not on filedocumented in this encounter Care Teams Toy Mechanic Relationship Specialty Start Date End Date Jason Batres MD [address] [place] [phone] PCP - General 08/13/08 05/24/11 documented as of this encounter
--- OUTSIDE RECORDS SUMMARY | 2024-02-28 16:57 | XMS_ITS | Encounter Summary ---
Author Organization [facility] Address [address] [place] [address] Care Team Providers Care Commodities Clerk Name Role Phone Jsaon Batres MD Primary Care Provi margarita Encounter Details Date Type Department Care Team (Late st Contact Info) Description 10/13/2006 Before PRISM Converted Visit (Maple) [facility] - Maple conversion [address] [place] [address] Franco Rodríguez MD [address] [place] [phone] Social History Tobacco Use Types Packs/Day Years [...] 0931 EST INPATIENT PROGRESS NOTE Service Date: 10/13/2006 PT LOC: F002 Jeff is the 45-year-old gentleman with craniopharyngioma. His vital signs are stable. He is afebrile. Affect is bright. The patient is tolerating therapies well. Signed by Franco Rodríguez MD 10/16/2006 09:52 - Nicko Rodríguez MD A - eh Job ID: [id number] Document ID: [id number] cc: documented in this encounter Plan of Treatment Not on file documented as of this encounter Visit Diagnoses Not on filedocumented in this encounter Care Teams Commodities Clerk Relationship Specialty Start Date End Date Jason Batres MD [address] [place] [phone] PCP - General 08/13/08 05/24/11 documented as of this encounter
--- OUTSIDE RECORDS SUMMARY | 2024-02-28 16:57 | XMS_ITS | Encounter Summary ---
Author Organization [facility] Address [address] [place] [address] Care Team Providers Care Rental Counter Clerk Name Role Phone Jason Batres MD Primary Care Provi margarita Encounter Details Date Type Department Care Team (Late st Contact Info) Description 10/08/2006 Before PRISM Converted Visit (Maple) [facility] - Maple conversion [address] [place] [address] Jeff Camargo MD [address] [place] [id number] Social History Tobacco Use Types Packs/Day Years Used Date Smoking Tobacco: Never Assessed Sex and Gender Information Value Date Recorded Sex Assigned at Male 06/12/2023 11:45 EDT Legal Sex Male 18:05 EST Gender Identity Male 10/03/2019 21:06 EDT Sexual Orientation Straight 06/12/2023 11 :45 EDT documented as of this encounter Progress Notes * Jeff Camargo MD - 01/12/2009 1640 EST INPATIENT PROGRESS NOTE Service Date: 10/08/2006 PT LOC: F002 Mr. Scott is a 45-year-old gentleman status post craniopharyngioma resection. He denies any specific headache today. He continues to have diplopia due to extraocular muscle impairment. He reports generally sleeping well. No constipation issues are reported. Improvement in his insight is noted. Vital signs are stable. He is afebrile. Chest is clear to auscultation bilaterally. Heart regular rate and rhythm. Abdomen soft. Bowel sounds are positive. Observation of his gaze reveals he still has limited upward and downward gaze. He also has decreased abduction of the right eye. In summary, Mr. Scott is 45-year-old gentleman status post craniopharyngioma resection. He makes continued steady progress in regard to his overall neurologic function. He continues to wear a patch for his diplopia. We will continue to monitor endocrine issues in regard to his pituitary dysfunction. Dr. Segovia will be following this along with us. He continues comprehensive rehabilitation servicesfor his neurologic deficits associated with resection of this tumor. Signed by Jeff Camargo MD 10/15/2006 13:27 Jewel Trujillo MD Jeff Camargo MD - Jeff Camargo MD P - eh Job ID: [id number] Document ID: [id number] cc: documented in this encounter Plan of Treatment Not on file documented as of this encounter Visit Diagnoses Not on filedocumented in this encounter Care Teams Rental Counter Clerk Relationship Specialty Start Date End Date Jason Batres MD [address] [place] [phone] PCP - General 08/13/08 05/24/11 documented as of this encounter
--- OUTSIDE RECORDS SUMMARY | 2024-02-28 16:57 | XMS_ITS | Encounter Summary ---
Author Organization [facility] Address [address] [place] [address] Care Team Providers Care Land Acquisition Analyst Name Role Phone Jason Batres MD Primary Care Provi margarita Encounter Details Date Type Department Care Team (Late st Contact Info) Description 12/24/2006 Before PRISM Converted Visit (Maple) [facility] - Maple conversion [address] [place] [address] Estefany Omalley, OT [address] [phone] Social History Tobacco Use Types Packs/Day Years Used Date Smoking Tobacco: Never Assessed Sex and Gender Information Value Date Recorded Sex Assigned at Male 06/12/2023 11:45 EDT Legal Sex Male 18:05 EST Gender Identity Male 10/03/2019 21:06 EDT Sexual Orientation Straight 06/12/2023 11 :45 EDT documented as of this encounter Progress Notes * Sukh, Conv Molded [employer]les Wicker - 01/12/20091955 EST [facility] OCCUPATIONAL THERAPY PROGRESS/RECERTIFICATION NOTE SERVICE DATE: 12/24/2006 REFERRING PROVIDER: Artie Preston MD PRIMARY CARE PROVIDER: Chente Gomes MD DIAGNOSIS/ONSET/ICD9#: 1. 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 Diplopia / sought care 10/16/2006 / 368.2 3. Localized visual field defects / sought care 10/16/2006 / 368.44 TOTAL NUMBER OF VISITS: 18 DATE OF FIRST SESSION: 10/17/2006 PRECAUTIONS: Diplopia and visual field deficit SUBJECTIVE Jeff has been attending occupational therapy diligently. A neighbor or family member typically brings Jeff to and from therapies. Jeff has a neuroophthalmology this week. He is also going to see his neurologist on January 08, 2007 for follow-up. Jeff is pleasant and friendly. He is generally able to recall this occupational therapistname as well as her profession. Occasionally during cognitive treatments, Jeff will report, ???Im an idiot, I am dumb and blind.?? SELF CARE/HOME MANAGEMENT: Patient performs basic self care with distant supervision/independence. He isnot using his shower chair any longer. He has been able to prepare sandwiches with distant supervision as well as prepare simple meals on the stove with distant supervision. He is still receivingnearly 24-hour supervision while his is at work and his children are at school. He has time alone in the mornings between the time his family leaves and when his first caregiver arrives. Friendsand family provide the near 24-hour supervision. OBJECTIVE The following includes a summary of tests and measures that have been performed this past month. COGNITION: The MontrealCognitive Assessment was administered. Patient scored a 22/30; 26/30 is considered within normal limits. Patient had deficits with delayed recall such that he was unable to recall five out of five words after 5 minutes. He had errors in abstraction as well as with of language. He also was unable to copy a cube. This is a measure of visual-spatial skills. Patient completed the [facility] Memory Test as a re-test. His profile score was 11, his screening score was a 4(moderate impairment). Patientscore on initial evaluation for the [facility] was 10 for the profile score and 5 for the screen. Functionally, patient is somewhat inconsistent in his ability to use the journal to recall the date as well as inconsistent in his ability to recall this OTs name. Would estimate that he is able to provide the correct date and name 80-90% of the time. Jeff is inconsistent in his ability to recall treatment session. With multi-step problem solving, Jeff has difficulty. He is able to perform simple math problems He is accurate with issuing change and generating the correct dollar amount. However, he has difficulty subtracting multiple digits. He has more success when using the calculator. Jeff needs assistance/to balance the checkbook. He is able to write a check. However, when additional steps are imposed he needs cues. The unsafe kitchen assessment was issued. Patient was able to identify eight out of eight unsafe kitchen items in about 1 minute. VISION: Patient continues to have a disconjugate gaze. His distant acuity for each eye tested separately is 20/40. His near acuity for the right eye is 20/25, his near acuity for his left eye is 20/30. Jeff wears the patch consistently. When he takes the patch off, he isobserved to close an eye inorder to see one image. When tested separately, Moe visual martinez are within normal limits. He is able to track an object superiorly, inferiorly, and laterally. However, he does have difficulty looking down during functional activity. ACTIVITIES OF DAILY LIVING: A checklist was issued for the patient. The checklist includes activities that are to be completed in the morning, afternoon, and evening. Jeff reports that he is using the checklist. It is posted in his kitchen. ASSESSMENT Jeff has been more consistent in his ability to recall information this month. He is also more consistently able to use his journal to recainformation. Jeff has done well with functional activitiessuch as simple cooking tasks (sandwiches and soup), and simple money management tasks. He has more difficulty with mproblem solving tasks such as balancing the checkbook, and preparing items using a recipe. Suspect this is due to impaired attention and decreased memory. At this point, I feel it would be beneficial for Jeff to have a Life Skills Aide rather than a friend to facilitate his independence during the day. Feel that Jeff has the ability to be home alone for longer periods of time, though would recommend ongoing supervision in the kitchen. He is able to verbalize that driving is not safe for him due to his vision problem. He does seem to be able to compensate for his visual deficits in an automatic way (tucking his chin to see inferiorly and wearing the patchto eliminate diplopia). I am looking forward to the results of his ophthalmology evaluation as I am hopeful that tools will be identified to improve his vision. Jeff has improved from an ADL perspective such that he does not need contact guard, nor is he using his shower chair. Physically, Jeff presents with persistent fatigue and left hip pain. Moe occupational therapy needs are coming to an end. I am hopeful that the strategies put in place, such as the ADL checklist, as well as encouraging his independence with instrumental ADLs (checkbook use and meal preparation), will result in greater independence. He continues to need practice using his daily marketing planner. The plan will be to discontinue occupational therapy by the end of the month. We will continue to work on cognitive skills and multi-step problem solving to improve his independence with instrumental ADL. GOALS STATUS: 1. Patient is consistently independent with cold meal prep. (Met) 2. He is able to prepare soup independently. (Met) 3. Patient is able to recall therapist's name consistently. (Not met) 4. (New goal) Patient is able to verbalize compensatory strategies he uses for his memory. Specifically, patient is able to verbalize that he needs to use the journal to consistently recall the days events and the date. 5. (New goal) The patient is able to identify how he might be more accurate with checkbook balancing. Specifically, he is able to verbalize use of the calculator. PLAN INTERVENTION/FREQUENCY Patient will continue to be seen in occupational therapy twice a week for two weeks to address the above goals. Thank you for this referral. Signed by Estefany Hurst OT 12/26/2006 14:01 Estefany Hurst OT/L cc: MD Artie Noble MD - Estefany Hurst OT A - plf Job ID: [id number] Document ID: [id number] Document ID: [id number] documented in this encounter Plan of Treatment Not on file documented as of this encounter Visit Diagnoses Not on filedocumented in this encounter Care Teams Land Acquisition Analyst Relationship Specialty Start Date End Date Jason Batres MD [address] [place] [phone] PCP - General 08/13/08 05/24/11 documented as of this encounter
--- OUTSIDE RECORDS SUMMARY | 2024-02-28 16:57 | XMS_ITS | Encounter Summary ---
Author Organization [facility] Address [address] [place] [address] Care Team Providers Care Bulb Assembler Name Role Phone Jason Batres MD Primary Care Provi margarita Encounter Details Date Type Department Care Team (Late st Contact Info) Description 01/04/2007 Before PRISM Converted Visit (Maple) [facility] - Maple conversion [address] [place] [address] Estefany Omalley, OT [address] [phone] Social History Tobacco Use Types Packs/Day Years Used Date Smoking Tobacco: Never Assessed Sex and Gender Information Value Date Recorded Sex Assigned at Male 06/12/2023 11:45 EDT Legal Sex Male 18:05 EST Gender Identity Male 10/03/2019 21:06 EDT Sexual Orientation Straight 06/12/2023 11 :45 EDT documented as of this encounter Progress Notes * Sukh, Conv Supervisor Electronics Processing - 01/12/2009 0040 EST [facility] OCCUPATIONAL THERAPY DISCHARGE/DISCONTINUE SUMMARY SERVICE DATE: 01/04/2007 REFERRING PROVIDER: Artie Preston MD PRIMARY CARE PROVIDER: Chente Gomes MD DIAGNOSIS/ONSET/ICD9#: 1. 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 Diplopia / sought care 10/16/2006 / 368.2 3. Localized visual field defects / sought care 10/16/2006 / 368.44 TOTAL NUMBER OF VISITS: 21 DATE OF FIRST SESSION: 10/17/2006 PRECAUTIONS: Diplopia SUBJECTIVE Jeff attended his last occupational therapy session today with his spouse, Nguyen. She reports that Jeff isscheduled for a repeat MRI next Sunday, January 08, 2007. She reports that he will need repeat MRIs every three to six months, depending on growth. Nguyen also reports that Jeff will be getting prism glasses on February 07, 2007, to manage his diplopia. Nguyen reports that Jeff has some difficulty following the ADL checklist that was created for himin occupational therapy. She reports that he needs cues to use it and he also needs cues to use his journal. reports that Jeff occasionally needs cues to shower. She reports that he could prepare his breakfast independently; however, she assists him with this because he hasa tendency to overeat. Nguyen reports that Jeff typically sleeps for about five hours in the afternoon and for an hour and a half in the morning. Jeff was able, today, to identify why he needs to use the journal. He reported ???its to help withmy memory.?? Jeff was also oriented to the date today. Jeff has remained friendly and pleathroughout his OT course. OBJECTIVE The patient was seen three times since his last progress note. Please refer to his preceding recertification notes for information on cognitive and visual testing. Meal Preparation: The patient was able to prepare eggs, herrera and toast with supervision. He demonstrated safe burner management. He occasionally misjudged distances with reaching. 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 Calculator Use for Checkbook Management: The patient needs minimal to moderate cues to use the calculator successfully during checkbook tasks. He has difficulty shifting from the check register to the calculator. ASSESSMENT It has been hard for Jeff to progress within occupational therapy due to persistent decreased insight. He is able to identify vision as a deficit area, but has difficulty consistentlyidentifying decreased memory as a deficit area. This impacts his ability to consistently use strategies (ie: journal and ADL Checklist). He has been more accurate with orientation and hes more able to information within a treatment session. He appears to have more difficulty with working memory as compared to procedural memory as he demonstrates near independence with activities such as simple meal preparation, but has difficulty with checkbook management. Jeff has a very supportive family and network of friends who are providing intermittent supervision throughout the day. Moe fatigue and decreased ability to monitor food portions remain problem areas. As a result, Jeff needs assistance to manage meals. Nguyen will speak with patientneurologist next week regarding his fatigue level. 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 The patient and his spouse were receptive to this plan. Regarding patients goals, he has met the followin. is able to recall therapist's name consistently. 2. Patient is able to verbalize strategies to increase his memory after a prompt. 3. Patient is able to identify that a calculator may help him with checkbook balancing. PLAN The plan is to discontinue occupational therapy at this time. 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 It was a pleasure to work with Jeff. Thank you for this referral. Signed by Estefany Hurst OT 01/10/2007 10:24 CLYDE Hanna/Juan J cc: MD Artie Noble MD - CLYDE Hanna/Juan J A - ctl Job ID: [id number] Document ID: [id number] documented in this encounter Plan of Treatment Not on file documented as of this encounter Visit Diagnoses Not on filedocumented in this encounter Care Teams Bulb Assembler Relationship Specialty Start Date End Date Jason Batres MD [address] [place] [phone] PCP - General 08/13/08 05/24/11 documented as of this encounter
--- OUTSIDE RECORDS SUMMARY | 2024-02-28 16:57 | XMS_ITS | Encounter Summary ---
Author Organization [facility] Address [address] [place] [address] Care Team Providers Care Network Services Project Manager Name Role Phone Jason Batres MD Primary Care Provi margarita Encounter Details Date Type Department Care Team (Late st Contact Info) Description 01/04/2007 Before PRISM Converted Visit (Maple) [facility] - Maple conversion [address] [place] [address] Jessica Talbert [facility] [address] [place] [address] Social History Tobacco Use Types Packs/Day Years Used Date Smoking Tobacco: Never Assessed Sex and Gender Information Value Date Recorded Sex Assigned at Male 06/12/2023 11:45 EDT Legal Sex Male 18:05 EST Gender Identity Male 10/03/2019 21:06 EDT Sexual Orientation Straight 06/12/2023 11 :45 EDT documented as of this encounter Progress Notes * [facility]/2009 1005 EST [facility] SPEECH-LANGUAGE PATHOLOGY PROGRESS / ON HOLD NOTE - January 04, 2007 Pt Name: Jeff Scott Pt Address: [address] [place] [id number] Pt MRN: [id number] Date of : 1960 Age: 46 Primary Physician: Jason Batres MD Referring Physician: Artie Preston MD Diagnosis: Higher-level language deficits (784.60) Secondary Diagnosis: Craniopharyngioma status post resection Date of Onset: 09/13/2006 Dates of Service (Since Last Progress Note): 12/04, 12/06, 12/10, 12/12, 12/17, 12/26, 12/31, 01/04/2007 Name of Provider: Jessica Talbert M.Ed., CCC-SENIOR SPECIALIST SUBJECTIVE: ???I wish I could read my writing.?? Jeff Scott continues to primarily complain of vision deficits. He has been cooperative during treatment sessions. OBJECTIVE: Following submission of his last progress note on Novembercara was seen for eighttreatment sessions to address his higher-level language deficits status post craniopharyngioma resection. The current status of each of his short-term goals follows: 1. Jeff will listen to paragraph-length spoken information and answer related questions with 90% accuracy with use of note taking as a compensatory strategy: This goal has not been met. Moe performance has been somewhat inconsistent. Fatigue has a negative impact on his ability to concentrate, retain information, and take effective notes. 2. Jeff will refer to his journal for information about his therapies and daily activities withoutcues: This goal has not been met. has become more aware of the purpose of his journal and has written some entries when cued to do so. journal is still considered useful in terms of writing down information to track day-to-day events, but it has become evident that Jeff needs ongoing cueing, not only to write in it but also to refer to it for information. 3. Jeff will complete basic deductive reasoning tasks with 80% accuracy: Goal not met. has been inconsistent in his attention to detail and at times has required maximum assistance to think logically and integrate information in order to solve basic deduction puzzles. has a negative impact on his p erformance. Use of a cross off strategy has been helpful for information management, but Jeff requires cues for implementation. 4. Reevaluation measures: The Immediate and Recent Memory subtests from the Ross Information Processing Assessment (RIPA-2)were readministered. Moe performance on the Immediate Memory subtest is unchanged; he continues to have difficulty with full, accurate recall of word strings and lengthier sentences. His score on the Recent Memory subtest increased from 55% to 66%. Delayed recall remains especially challenging. 5. Patient/spouse education: Further patient/spouse education has been provided in the context of ameeting and via a private meeting in this clinicians office. This clinician has shared concerns regarding Jefflack of full awareness regarding his memory deficits and the necessity of external cueing and compensation at the present time. Jeff also demonstrates impaired initiation, the importance of external cueing, posted reminders, task checklists, and daily structure/routine was reinforced. ASSESSMENT: Further speech-language pathology services were provided over this past month. Unfortunately, Moe performance with short-term recall, auditory memory, and reasonintasks has been inconsistent. He did not meet his short-term goals. A primary barrier to Moe independent memory compensation is his apparent lack of full awareness regarding his difficulties in this domain. He continuesto require external cues both to write in his journal and then refer to it for information recall. On a positive note, Jeff does appear better able to remember day-to-day routines or events. However, his ability to retain spoken information remains quite poor. Note taking has been only marginally helpful or effective. Memory retesting with the RIPA-2 did not show any change in Moe immediate memory skills; however, a 10% gain was noted in terms of his recent memory abilities. Overall, his memory deficits are considered moderate to severe. continues to have difficulty with higher-level reasoning tasks seemingly due to reduced attention to detail and reduced information management or integr ation. initiation skills have also been noted, such that Jeff requires cues and/or direction to perform most tasks; otherwise, he is mostly to nap. Education has been provided to Jeff and his in the context of a team meeting and during a one-to-one exchange today. Persisting deficits were dis cussed and the need for ongoing external compensation and cues was explained. Additional memory tactics (e.g., use of post-it notes for were discussed. PLAN: Given the significance of Moe persisting memory deficits and his lack of full awareness ofthem, along with his inconsistent performance over this past month, this clinician is feeling as though direct intervention is not necessarily effecting significant change at the present time. For now, Jeff will benefit from daily structure and routine as well as external cues for journal use, notetaking, jotting reminders on post-it notes, initiation, and decision making. While the onus of external compensation currently falls on Moe , the hope is that with more time and healing Jeff will become more aware of his deficits and begin to compensate more independently. It is also anticipated that with gains in his vision he will be better able to attend to visual details and manage/integrate printed information. Direct speech-language pathology services will be placed ???on hold?? at this time. A reevaluation is planned at the end of this month to determine whether Jeff is readyto address independent means of memory compensation. Please contact me with any questions or concerns regarding this report. Signed by Jessica Talbert M.Ed., [facility] 01/14/2007 14:03 Jessica aTlbert M.Ed., [facility] Speech-Language Pathologist cc: MD Artie Lynne MD Karen M. Leary, M.Ed., [facility] Corey Cao MD - Jessica Talbert M.Ed., [facility] P - plf Job ID: [id number] Document ID: [id number] - plf Job ID: [id number] Document ID: [id number] documented in this encounter Plan of Treatment Not on file documented as of this encounter Visit Diagnoses Not on filedocumented in this encounter Care Teams Network Services Project Manager Relationship Specialty Start Date End Date Jason Batres MD [address] [place] [phone] PCP - General 08/13/08 05/24/11 documented as of this encounter
--- OUTSIDE RECORDS SUMMARY | 2024-02-28 16:57 | XMS_ITS | Encounter Summary ---
Author Organization [facility] Address [address] [place] [address] Care Team Providers Care Personnel Representative Name Role Phone Jason Batres MD Primary Care Provi margarita Encounter Details Date Type Department Care Team (Late st Contact Info) Description 10/07/2006 Before PRISM Converted Visit (Maple) [facility] - Maple conversion [address] [place] [address] Marciano Segovia MD [address] [phone] Social History Tobacco Use Types Packs/Day Years Used Date Smoking Tobacco: Never Assessed Sex and Gender Information Value Date Recorded Sex Assigned at Male 06/12/2023 11:45 EDT Legal Sex Male 18:05 EST Gender Identity Male 10/03/2019 21:06 EDT Sexual Orientation Straight 06/12/2023 11 :45 EDT documented as of this encounter Progress Notes * Marciano Segovia MD - 01/07/2009 0355 EST INPATIENT PROGRESS NOTE Service Date: 10/07/2006 PT LOC: F002 Mr. Scott is a 45-year-old status post resection of craniopharyngioma. 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 He thus far is showing normal thyroid studies and is not on thyroid hormone supplementation at this point. He is on a split dose of hydrocortisone. The patient reports acceptable pain control. He denies chills or sweats. Temperature is 37.3, pulse 69, respirations 16, blood pressure is 102/59. Cardiac rhythm is regular. Lung martinez are clear. Abdomen is soft. JVD is not visible. Surgical wound healing. ASSESSMENT AND PLAN 1. Continue comprehensive therapy activities status post craniopharyngioma resection. 2. Continue hydrocortisone therapy. 3. Periodic assessment of thyroid hormone status is recommended. Signed by Marciano Segovia MD 10/15/2006 09:17 Jer Herrera MD Marciano Segovia MD - Marciano Segovia MD P - lr Job ID: [id number] Document ID: [id number] cc: \* MERGEFORMAT Marciano Segovia MD - Marciano Segovia MD P - lr Job ID: [id number] Document ID: [id number] cc: documented in this encounter Plan of Treatment Not on file documented as of this encounter Visit Diagnoses Not on filedocumented in this encounter Care Teams Personnel Representative Relationship Specialty Start Date End Date Jason Batres MD [address] [place] [phone] PCP - General 08/13/08 05/24/11 documented as of this encounter
--- OUTSIDE RECORDS SUMMARY | 2024-02-28 16:57 | XMS_ITS | Encounter Summary ---
Author Organization [facility] Address [address] [place] [address] Care Team Providers Care On Site Coordinator Name Role Phone Jason Batres MD Primary Care Provi margarita Encounter Details Date Type Department Care Team (Late st Contact Info) Description 09/22/2006 Before PRISM Converted Visit (Maple) [facility] - Maple conversion [address] [place] [address] Yumi Ferrer MD [address] [place] [address] Social History Tobacco Use Types Packs/Day Years Used Date Smoking Tobacco: Never Assessed Sex and Gender Information Value Date Recorded Sex Assigned at Male 06/12/2023 11:45 EDT Legal Sex Male 18:05 EST Gender Identity Male 10/03/2019 21:06 EDT Sexual Orientation Straight 06/12/2023 11 :45 EDT documented as of this encounter Progress Notes * Yumi Ferrer MD - 01/10/2009 1333 EST INPATIENT PROGRESS NOTE Service Date: 09/22/2006 PT LOC: F002 DIAGNOSIS Brain tumor. SUBJECTIVE The patient was seen and examined today. Vital signs are stable and the patient is afebrile. No newclinical issues were identified, and the patient is to continue in the rehabilitation program. Patient has no new issues or concerns. Feels he is doing well overall. Signed by Yumi Ferrer MD 09/25/2006 14:55 Tereso Perkins MD Yumi Ferrer MD - Yumi Ferrer MD P - djb Job ID: [id number] Document ID: [id number] cc: documented in this encounter Plan of Treatment Not on file documented as of this encounter Visit Diagnoses Not on filedocumented in this encounter Care Teams On Site Coordinator Relationship Specialty Start Date End Date Jason Batres MD [address] [place] [phone] PCP - General 08/13/08 05/24/11 documented as of this encounter
--- OUTSIDE RECORDS SUMMARY | 2024-02-28 16:57 | XMS_ITS | Encounter Summary ---
Author Organization [facility] Address [address] [place] [address] Care Team Providers Care Transmission Technician Name Role Phone Jason Batres MD Primary Care Provi margarita Encounter Details Date Type Department Care Team (Late st Contact Info) Description 09/21/2006 Before PRISM Converted Visit (Maple) [facility] - Maple conversion [address] [place] [address] Marciano Segovia MD [address] [phone] Social History Tobacco Use Types Packs/Day Years Used Date Smoking Tobacco: Never Assessed Sex and Gender Information Value Date Recorded Sex Assigned at Male 06/12/2023 11:45 EDT Legal Sex Male 18:05 EST Gender Identity Male 10/03/2019 21:06 EDT Sexual Orientation Straight 06/12/2023 11 :45 EDT documented as of this encounter Progress Notes * Marciano Segovia MD - 01/10/2009 1335 EST INPATIENT PROGRESS NOTE Service Date: 09/21/2006 PT LOC: F002 SUBJECTIVE Mr. Scott is a 45-year-old recovering from resection of craniopharyngioma. 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 The patient denies pain, chills, sweats, or chest discomfort. OBJECTIVE Temperature is 36.6, pulse 60, respirations 16, blood pressure 80/54. Cardiac rhythm is regular. Lung martinez are clear. Abdomen is soft. JVD is not visible. Surgical wound continues to heal. LABORATORY The patient has been showing normal TSH levels, including most recent one of 1.02. His free T3 is slightly low at 2.1, normal range being 2.3 to 4.2. The free T4 is at the lower limits of normal at 1.0. ASSESSMENT/PLAN 1. Continue comprehensive therapy activities following resection of craniopharyngioma. 2. I recommend follow up of free T3, free T4, and TSH in one week. 3. Continue hydrocortisone therapy. 4. Continue periodic monitoring of electrolytes and renal function. Signed by Marciano Segovia MD 10/01/2006 07:10 Jer Herrera MD Marciano Segovia MD - Marciano Segovia MD [employer] Job ID: [id number] Document ID: [id number] cc: \* MERGEFORMAT Marciano Segovia MD - Marciano Segovia MD [employer] Job ID: [id number] Document ID: [id number] cc: documented in this encounter Plan of Treatment Not on file documented as of this encounter Visit Diagnoses Not on filedocumented in this encounter Care Teams Transmission Technician Relationship Specialty Start Date End Date Jason Batres MD [address] [place] [phone] PCP - General 08/13/08 05/24/11 documented as of this encounter
--- OUTSIDE RECORDS SUMMARY | 2024-02-28 16:57 | XMS_ITS | Encounter Summary ---
Author Organization [facility] Address [address] [place] [address] Care Team Providers Care Welding Machine Operator Resistance Name Role Phone Jason Batres MD Primary Care Provi margarita Encounter Details Date Type Department Care Team (Late st Contact Info) Description 09/23/2006 Before PRISM Converted Visit (Maple) [facility] - Maple conversion [address] [place] [address] Yumi Ferrer MD [address] [place] [phone] Social History Tobacco Use Types Packs/Day Years Used Date Smoking Tobacco: Never Assessed Sex and Gender Information Value Date Recorded Sex Assigned at Male 06/12/2023 11:45 EDT Legal Sex Male 18:05 EST Gender Identity Male 10/03/2019 21:06 EDT Sexual Orientation Straight 06/12/2023 11 :45 EDT documented as of this encounter Progress Notes * Yumi Ferrer MD - 01/10/2009 1336 EST INPATIENT PROGRESS NOTE Service Date: 09/23/2006 PT LOC: F002 DIAGNOSIS Brain tumor. The patient was seen and examined today. Vital signs are stable and the patient is afebrile. No newclinical issues were identified, and the patient is to continue in the rehabilitation program. Signed by Yumi Ferrer MD 09/25/2006 14:56 Tereso Perkins MD - Yumi Ferrer MD [facility] Job ID: [id number] Document ID: [id number] cc: \* MERGEFORMAT D: - Yumi Ferrer MD [facility] Job ID: [id number] Document ID: [id number] cc: Document ID: [id number] cc: documented in this encounter Plan of Treatment Not on file documented as of this encounter Visit Diagnoses Not on filedocumented in this encounter Care Teams Welding Machine Operator Resistance Relationship Specialty Start Date End Date Jason Batres MD [address] [place] [phone] PCP - General 08/13/08 05/24/11 documented as of this encounter
--- OUTSIDE RECORDS SUMMARY | 2024-02-28 16:57 | XMS_ITS | Encounter Summary ---
Author Organization [facility] Address [address] [place] [address] Care Team Providers Care Newspaper Or Periodical Editor Name Role Phone Jason Batres MD Primary Care Provi margarita Encounter Details Date Type Department Care Team (Late st Contact Info) Description 09/29/2006 Before PRISM Converted Visit (Maple) [facility] - Maple conversion [address] [place] [address] Jeff Camargo MD [address] [place] [address] [id number] Social History Tobacco Use Types Packs/Day Years Used Date Smoking Tobacco: Never Assessed Sex and Gender Information Value Date Recorded Sex Assigned at Male 06/12/2023 11:45 EDT Legal Sex Male 18:05 EST Gender Identity Male 10/03/2019 21:06 EDT Sexual Orientation Straight 06/12/2023 11 :45 EDT documented as of this encounter Progress Notes * Jeff Camargo MD - 01/10/2009 0059 EST INPATIENT PROGRESS NOTE Service Date: 09/29/2006 PT LOC: F002 Tyler is a 45-year-old gentleman status post craniopharyngioma resection. He denies any significantpain complaints today. He still demonstrated lack of insight into the reason of rhinitis hospitalization. He is still requiring one-to-one supervisionfor safety awareness issues. Vital signs: Temperature 36, heart rate 65, respirations 16, blood pressure 104/67. Chest is clear to auscultation. Heart regular rate and rhythm. Abdomen is soft, bowel sounds positive. Left craniotomy is healing nicely. He still has gaze deficits with strabismus of the right eye with lateral deviation. He also has decreased upward and downward gaze with some nystagmus on those movements. In summary, Mr. Scott will continue comprehensive rehabilitation services for cognitiveand neurologic deficits associated with craniopharyngioma resection. He will also be monitored for endocrine issues. He has had recent labs on September 26, 2006, which were normal including electrolytes, BUN, creatinine, and cortisol level. He has also had recent thyroid studies, which were normal with the exception of slightly low T3 at 2.1. He continues hydrocortisone, venlafaxine, gabapentin, and p.r.n. pain medicines. Signed by Jeff Camargo MD 10/01/2006 13:14 Jewel Trujillo MD Jeff Camargo MD - Kay Camargo MD [facility] Job ID: [id number] Document ID: [id number] cc: D: - Jeff Camargo MD [facility] Job ID: [id number] Document ID: [id number] cc: documented in this encounter Plan of Treatment Not on file documented as of this encounter Visit Diagnoses Not on filedocumented in this encounter Care Teams Newspaper Or Periodical Editor Relationship Specialty Start Date End Date Jason Batres MD [address] [place] [phone] PCP - General 08/13/08 05/24/11 documented as of this encounter
--- OUTSIDE RECORDS SUMMARY | 2024-02-28 16:57 | XMS_ITS | Encounter Summary ---
Author Organization [facility] Address [address] [place] [address] Care Team Providers Care Multiple Knife Edge Trimmer Operator Name Role Phone Jason Batres MD Primary Care Provi margarita Encounter Details Date Type Department Care Team (Late st Contact Info) Description 10/12/2006 Before PRISM Converted Visit (Maple) [facility] - Maple conversion [address] [place] [address] Marciano Segovia MD [address] [phone] Social History Tobacco Use Types Packs/Day Years Used Date Smoking Tobacco: Never Assessed Sex and Gender Information Value Date Recorded Sex Assigned at Male 06/12/2023 11:45 EDT Legal Sex Male 18:05 EST Gender Identity Male 10/03/2019 21:06 EDT Sexual Orientation Straight 06/12/2023 11 :45 EDT documented as of this encounter Progress Notes * Marciano Segovia MD - 01/08/2009 1800 EST INPATIENT PROGRESS NOTE Service Date: 10/12/2006 PT LOC: F002 Mr. 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 He has had intermittent hypotension. Blood pressure is improved today at 136/76. Other vital signs are stable. Surgical wound is healing. Cardiac rhythm is regular. Lung martienz are clear. Abdomen is soft. No JVD visible. ASSESSMENT AND PLAN 1. Continue comprehensive therapy activities status post resection of craniopharyngioma. 2. Continue hydrocortisone supplementation for hypocortisolism. 3. Most recent thyroid studies were normal. Continue occasional assessment on a periodic basis given the risk of usp hypothyroidism after this type of operation. Signed by Marciano Segovia MD 10/24/2006 09:47 Jer Herrera MD Marciano Segovia MD - Marciano Segovia MD A - Job ID: [id number] Document ID: [id number] cc: documented in this encounter Plan of Treatment Not on file documented as of this encounter Visit Diagnoses Not on filedocumented in this encounter Care Teams Multiple Knife Edge Trimmer Operator Relationship Specialty Start Date End Date Jason Batres MD [address] [place] [phone] PCP - General 08/13/08 05/24/11 documented as of this encounter
--- OUTSIDE RECORDS SUMMARY | 2024-02-28 16:57 | XMS_ITS | Encounter Summary ---
Author Organization [facility] Address [address] [place] [address] Care Team Providers Care Metal Sash Setter Name Role Phone Jason Batres MD Primary Care Provi margarita Encounter Details Date Type Department Care Team (Late st Contact Info) Description 09/19/2006 Before PRISM Converted Visit (Maple) [facility] - Maple conversion [address] [place] [address] Artie Preston MD [address] [place] [phone] Social History Tobacco Use Types Packs/Day Years Used Date Smoking Tobacco: Never Assessed Sex and Gender Information Value Date Recorded Sex Assigned at Male 06/12/2023 11:45 EDT Legal Sex Male 18:05 EST Gender Identity Male 10/03/2019 21:06 EDT Sexual Orientation Straight 06/12/2023 11 :45 EDT documented as of this encounter Progress Notes * Artie Preston MD - 01/06/2009 0455 EST INPATIENT PROGRESS NOTE Service Date: 09/19/2006 PT LOC: F002 Mr. Scott is here status post brain tumor resection. He is unaware as to why he is hospitalized. Hedenies any pain, shortness of breath,or lightheadedness. He denies any visual change. Upon further questioning, he does note some right visual change with diplopia with right gaze. This is somewhat of a vertical diplopia. Temperature 36.1. Afebrile. Heart regular. Lungs clear. Abdomen soft, nontender. Bowel sounds present. Calves soft, nontender. His craniotomy incision is well approximated with radha in place. No clear focal motor weakness. IMPRESSION 1. Status post craniopharyngioma resection on September 06, 2006. The patient does remain with evidence of visual change and cognitive impairment. MRI has been reviewed and showed some evidence of punctateareas in the bilateral thalamic and upper midbrain region. Continue present therapy evaluations. 2. Diplopia. No additional interventions required at this time. Will consider a patch for symptomatic diplopia. Eventually, he will need neuroophthalmology evaluation. 3. Called to see the patient urgently secondary to him being unresponsive. Seen initially by internal medicine, who initiated a plan of care, but when I saw him he was starting to become minimally responsive, although clearly not as alert as when I saw him first thing this morning. STAT labs were requested, including BUN, cortisol, creatinine, electrolytes, and hemogram. These are reviewed and are all essentially within normal limits except for a mild low hemoglobin hematocrit, which does not require intervention. T3 is slightly low at 2.1, which I will ask internal medicine to review. Follow-up CT scan of the head is obtained. [facility] to [facility] into the system. These show no acute event. There is evidence of a prior craniotomy and evidence of mild pneumocephalus. Outside CDs have been loaded into the system but are nonreportable. No additional intervention is required at this time. The patient was seen again, was certainly more alert, and able to sit upright independently and eat his lunch. Continue to monitor. Signed by Artie Preston MD 09/24/2006 10:50 Gregory Chapman MD Artie Preston MD - Artie Preston MD A - lt Job ID: [id number] Document ID: [id number] cc: \* MERGEFORMAT Artie Preston MD - Artie Preston MD A - lt Job ID: [id number] Document ID: [id number] cc: documented in this encounter Plan of Treatment Not on file documented as of this encounter Visit Diagnoses Not on filedocumented in this encounter Care Teams Metal Sash Setter Relationship Specialty Start Date End Date Jason Batres MD [address] [place] [phone] PCP - General 08/13/08 05/24/11 documented as of this encounter
--- OUTSIDE RECORDS SUMMARY | 2024-02-28 16:57 | XMS_ITS | Encounter Summary ---
Author Organization [facility] Address [address] [place] [address] Care Team Providers Care Route Agent Name Role Phone Jason Batres MD Primary Care Provi margarita Encounter Details Date Type Department Care Team (Late st Contact Info) Description 10/17/2006 Before PRISM Converted Visit (Maple) [facility] - Maple conversion [address] [place] [address] Estefany Omalley, OT [address] [phone] Social History Tobacco Use Types Packs/Day Years Used Date Smoking Tobacco: Never Assessed Sex and Gender Information Value Date Recorded Sex Assigned at Male 06/12/2023 11:45 EDT Legal Sex Male 18:05 EST Gender Identity Male 10/03/2019 21:06 EDT Sexual Orientation Straight 06/12/2023 11 :45 EDT documented as of this encounter Progress Notes * Sukh, Conv Supervisor [employer] - 01/13/2009 1427 EST [facility] OCCUPATIONAL THERAPY PROGRESS/RECERTIFICATION NOTE SERVICE DATE: 11/14/2006 REFERRING PROVIDER: Artie Preston MD PRIMARY CARE PROVIDER: Chente Gomes MD DIAGNOSIS/ONSET/ICD9#: 1. 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 Diplopia/sought care 10-16-2006/368.2 3. Localized visual field defect/sought care 10-16-2006/368.44 TOTAL NUMBER OF VISITS: 8 DATE OF FIRST SESSION: 10/17/2006 PRECAUTIONS: Diplopia and visual field deficit SUBJECTIVE Jeff has been attending occupational therapy independently after having been dropped off by a neighbor, as his has returned to work. Jeff is seeking occupational therapy to address the deficits he sustained as a result of a tumor resection only 2006. Moe affect is pleasant though he frequently appears fatigued. OBJECTIVE A summary of tasks performed in occupational therapy this past month: VISION Patients left eye distant acuity is 20/30, his right eye is 20/20. Campimeter testing was grossly within normal limits for central field vision. Patient omitted one spot in the lower right quadrant. Functionally, patient has difficulty seeing in the inferiorfield, which was demonstrated while he was in the grocery store. He was not able to locate an item located on the lowest shelf. Patient alsohas difficulty performing tasks such as sweeping or vacuuming and cutting food as he is unable to see inferiorly. Patient continues to wear a patch all of the time to manage diplopia. Patient trialedprism glasses, but further practice is needed with the use. also collides with objects frequently. MEAL PREPARATION Patient was able to prepare a cold sandwich with supervision. He did need assistance to cut a tomato. For hot meal prep, patient needs supervision and minimalto moderate cues due to decreased problemsolving and decreased safety awareness. For instance, patient misread the directions and attempted to cook something for 8 minutes longer than was required. He also attempted to drain pasta with the lid on, versus straining using a colander. COMMUNITY ACCESS Patient was able to purchase five out of five items off of a grocery list. He independently referred to the grocery list and crossed items off as he went. Supervision and minimalto moderate cues are needed due to his inferior field loss as well as to determine what aisle to go down. He needed cues to stop and read the aisle signs, versus continuing to mobilize the cart, due to decreased visual motor skills. Patient did collide with two objects in the grocery store. COGNITION Patient is able to recall OTs name within a session after initial prompt. He is able to recall the date after an initial prompt throughout the session. Please note that performance fluctuates as patient is occasionally able to remember the name and the date without prompts. MONEY MANAGEMENT Patient is able to issue the correct dollar amount five out of five times. He is able to recognize coins and bills independently. CALCULATIONS Patient is able to add and subtract two-digit numbers independently. PHONE USE Patient is able to dial 911. He has been inconsistent in his ability to recall his home phone number. He needs assistance to look up phone numbers in the phonebook. PATHFINDING Patient is able to navigate around the clinic with supervision and no cues. ASSESSMENT Moe diminished memory continues to be his primary barrier impacting his ability to be independent throughout the day. His impaired memory results in decreased insight and decreased safety awareness. Jeff also has fatigue which impacts his participation in ADL and former leisure pursuits. He is currently relying on support from neighbors to provide 24-hour supervision, as his has returnedto work. Moe also presents with impairments including diplopia and loss of inferior vision, which impact his mobility and ability to perform functional activities as described above. I have urged the patient and his spouse to pursue neuro-optometry for glasses that may help manage his severe visual deficits. Feel that Jeff is appropriate for further occupational therapy to address his decreased cognition and decreased visual skills as they impact his independence. Given that Jeffperformance in therapy is inconsistent, it is difficult to predict how independent he will become. However, with further occupational therapy to use of compensatory strategies (for vision and cognition) feel hewill be able to be independent for parts of the day. Patients status of goals set on his initial evaluation: SHORT-TERM GOALS 1. Patient is able to state the correct date two times within a treatment session. (Has not been met but remains current) 2. Patient is able to recall two things from an occupational therapy session. (This has been met times one and remains current) 3. Patient is able to path find from the occupational therapy treatment room to the dining caf?? independently. (This has been met) NEW GOALS 1. Patient is consistently independent with cold meal prep. 2. Patient needs supervision and no cues for simple hot meal prep per improved ability to compensate for visual field deficit. 3. Patient is able to recall therapists name consistently without prompts. LONG-TERM GOALS 1. Patient has a plan in place for return to driving. 2. Patient no longer requires 24 hour supervision per increased safety awareness/judgement. Patient and family agree the treatment plan and goals. PLAN INTERVENTION/FREQUENCY Continue occupational therapy twice a week for 60-minute sessions for the next four weeks. Interventions will include cognitive and visual training as they impact ADLS and instrumental ADLS. DISCONTINUE PLAN When goals have been met or patients progress plateaus, which I anticipate will take approximately eight weeks. Thank you for this referral. Signed by Estefany Hurst OT 11/20/2006 14:24 Tierney Solitario OT cc: MD Artie Noble MD - Estefany Hurst OT P - plf Job ID: [id number] Document ID: [id number] - Estefany Hurst OT P - plf Job ID: [id number] Document ID: [id number] documented in this encounter Plan of Treatment Not on file documented as of this encounter Visit Diagnoses * Evaluation - Tano Luz Supervisor [employer] - 01/08/2009 1806 EST [facility] OCCUPATIONAL THERAPY INITIAL EVALUATION SERVICE DATE: 10/17/2006 REFERRING PROVIDER: Artie Preston MD PRIMARY CARE PROVIDER: Chente Gomes MD DIAGNOSIS/ONSET/ICD9#: 1. 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 Diplopia/sought care 10-16-2006/368.2 3. Localized visual field defect/sought care 10-16-2006/368.44 PRECAUTIONS: Diplopia and visual field deficit SUBJECTIVE Jeff is a 45-year-old gentleman, who attended occupational therapy today with his spouse, Nguyen. Jeff is here to address deficits related to the tumor resection that he had on September 06, 2006. Jeff has a nine-month history of depression and behavioral problems. He has a history of opiate abuse status post a fall. Initially symptoms associated with the tumor were thought to be related to history ofopiate abuse; hence the patient was admitted to [facility]. Ultimately he had an MRI, which revealed a craniopharyngioma. He had an orbitozygomatic craniotomy with resection on September 06, 2006.Jeff attended occupational therapy with contact guard from his spouse and he wore a patch. He is home from inpatient rehab as he was discharged yesterday. He had an inpatient rehab stay from September 13rough October 16, 2006. He reports that things are going well. He did appear a bit fatigued as theevaluation progressed. His attributes this to the fact that he had a busy night with lots of visitors coming to welcome him home. PAIN The patient has a history of left hip pain. He rates his pain as a 6-8/10. He reports that it is a throbbing, aching pain and that it is daily. He also has a history of low back pain due to a herniated disk. 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 He stopped working on June 08, 2006, due to issues caused by the brain tumor. SELF CARE The patient required set-up assistance and contact guard to dress this morning. He also has a history of needing assistance to don his left sock due to hip pain. He needs prompts to do his grooming routine. His reported he wanted to go right to bed rather than grooming last night. The patient has supervision in the shower. He has an accessible tub shower. He has a tub chair, a handrail and they are in the process of installing a handheld showerhead. He is using foam soap so that he does not need to risk having to reach for soap that has fallen to the floor. He reports that he is toileting independently. HOME MANAGEMENT Historically, his spouse has managed their finances, cooked meals and done laundry. The patient participated in lawn maintenance and bringing the garbage to and from the curb. LEISURE The patient enjoys playing sports with his sons. These sports include baseball, basketball and football. He also enjoys hunting with them in the fall and winter. The patient also reported he likes [employer]. 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 Osteoarthritis, chronic back pain and history of behavioral and psychiatric problems, likely due to tumor. The patients spouse response is that the patient has a herniated disk and left hip pain history. CURRENT MEDICATIONS Effexor, Neurontin, Protonix, Advil as needed, Colace as needed, Tylenol as needed and Cortef. PATIENTS GOALS FOR TREATMENT The patient would like to improve his visual skills. Further goals need to be generated. OBJECTIVE An occupational therapy examination was performed today, findings were as follows: COGNITION The patient was oriented to place when given a choice of two. Initially he was able to state the correct month and year, but not the correct date. At the end of the evaluation the patient needed cuesto recall the correct year as he thought it was 2007. The patient was observed to minimize his deficits as reporting that he was independent with tasks that his would later clarify he needed assistance with.The patient also had difficulty recalling the age of his eldest son and needed cues from his spouse. The patient was able to follow simple verbal commands consistently. Problem solving dwas observed during visual testing when patient was asked to close one eye. Rather than switching thepatch to the eye that needed to be closed the patient would cover his eye with his hand therebyoccluding both eyes. VISION As mentioned above, the patient wore a patch throughout our treatment session as patient has a disconjugate gaze, and diplopia Visual testing was done with one eye at a time. Right eye: Near vision is 20/30. The patient demonstrates smooth pursuits in his right and left visual field. He has decreased superior greater than inferior field loss. With testing, patient demonstrated grossly intact saccadic movements. However,the patient did not appear to be able to fixate on a target when we were notformally testing this. Left eye: Near vision is 20/40. The patient demonstrated smooth pursuits horizontally. He unable to scan superiorly greater than inferiorly. His saccades were within normal limits as was his left peripheral vision. It was observed that anytime the patient needed to read or sign forms it was more time efficient for him to use his right eye with his left eye occluded. UPPER EXTREMITY The patient denies weakness, numbness or tingling. He is right-handed, but he throws balls, in sports, with his left hand. PATIENT/FAMILY EDUCATION Topics: Recommended that the patient bring the notebook that he received in inpatient rehab to his treatment sessions in order to help him recall therapy sessions and to assist in recalling the date.Also recommended that patient pursue neuro-optometry given the severity of his visual deficits. Provided the number of [employer] neuro-early head start teacher. Taught to: The patient and his spouse Barriers: Cognitive for the patient, none for his spouse Methods: Verbal and written Outcomes: Patient demonstrated understanding and his spouse will need to assist him with these recommendations ASSESSMENT Jeff was appropriate for an occupational therapy referral to address deficits he has as a result of the tumor resection from September 2006. Jeff presents with severely impaired vision, specifically poor superior and inferior vision as well as disconjugate gaze and diplopia. He is able to function best with his left eye occluded with a patch. Jeff also presents with cognitive issues thatare impacting his independence. For instance, he is requiring 24-hour supervision from his family at this time due to decreased judgment. He also presents with decreased orientation, decreased memory and decreased problem solving. It is difficult to determine his prognosis due to the inconsistent nature of his progress thus far. For instance, he is not consistently oriented Strongly recommend a referral to neuro-optometry to help manage his vision impairment. I feel that if vision were better managed he would be more independent with mobility. His spouse is very supportive, though is planning on returning to work this fall. They are pursuing a life skills aide to my understanding. Another barrier is patientdecreased insight, which may impact his ability to use compensatory strategies successfully. ST weeks 1. is able to state the correct date 2 times within a treatment session, independently referring tocues as needed. 2. Patient is able to recall 2 things from an occupational therapy session. 3. Patient is able topathfind from the occupational therapy treatment room to the dining caf?? independently in preparation for community re-entry. LT months. 1. has a plan in place for return to driving. 2. Patient no longer requires 24 hour supervision per increased safety awareness/judgement Patient agrees to and appears to understand treatment plans and goals. PLAN INTERVENTION/FREQUENCY Occupational therapy twice a week for 60-minute treatment sessions. Interventions will include cognitive and visual training, as they impact ADLs and instrumental ADLs, return to work and return to driving. FURTHER DATA Distant vision testing, cognitive testing, upper quarter screen. PATIENT EDUCATION DISCONTINUE PLAN When goals have been met or patients progress plateaus; anticipate approximately eight to 12 weeks. Thank you for this referral. Signed by Estefany Hurst OT 10/24/2006 13:55 Tierney Solitario, NIKI Estefany Hurst OTR/L cc: MD Artie Noble MD - Estefany Hurst OTR/Juan J A - ctl Job ID: [id number] Document ID: [id number] documented in this encounter Care Teams Route Agent Relationship Specialty Start Date End Date Jason Batres MD [address] [place] [phone] PCP - General 08/13/08 05/24/11 documented as of this encounter
--- OUTSIDE RECORDS SUMMARY | 2024-02-28 16:57 | XMS_ITS | Encounter Summary ---
Author Organization [facility] Address [address] [place] [address] Care Team Providers Care Labor Relations Director Name Role Phone Jasno Batres MD Primary Care Provi margarita Encounter Details Date Type Department Care Team (Late st Contact Info) Description 10/06/2006 Before PRISM Converted Visit (Maple) [facility] - Maple conversion [address] [place] [address] Marciano Segovia MD [address] [phone] Social History Tobacco Use Types Packs/Day Years Used Date Smoking Tobacco: Never Assessed Sex and Gender Information Value Date Recorded Sex Assigned at Male 06/12/2023 11:45 EDT Legal Sex Male 18:05 EST Gender Identity Male 10/03/2019 21:06 EDT Sexual Orientation Straight 06/12/2023 11 :45 EDT documented as of this encounter Progress Notes * Marciano Segovia MD - 01/12/2009 1637 EST INPATIENT PROGRESS NOTE Service Date: 10/06/2006 PT LOC: F002 Mr. Scott is a 45-year-old status post resection of a craniopharyngioma. Medical issues include hypocortisolism requiring hydrocortisone supplementation. He also has relative hypotension at this time. He denies fever, chills, sweats or dizziness. Current temperature is 36.5. Pulse 67. Respirations 16. Blood pressure 85/49. Cardiac rhythm is regular. Lung martinez are clear. Abdomen is soft. JVD is not visible. ASSESSMENT AND PLAN 1. Continue comprehensive therapy activities status post resection of craniopharyngioma. 2. Continue close monitoring of blood pressure given low readings presently. 3. Maintain hydrocortisone therapy for hypocortisolism. Signed by Marciano Segovia MD 10/15/2006 09:16 Jer Herrera MD Marciano Segovia MD - Marciano Segovia MD A - Job ID: [id number] Document ID: [id number] cc: documented in this encounter Plan of Treatment Not on file documented as of this encounter Visit Diagnoses Not on filedocumented in this encounter Care Teams Labor Relations Director Relationship Specialty Start Date End Date Jason Batres MD [address] [place] [phone] PCP - General 08/13/08 05/24/11 documented as of this encounter
--- OUTSIDE RECORDS SUMMARY | 2024-02-28 16:57 | XMS_ITS | Encounter Summary ---
Author Organization [facility] Address [address] [place] [address] Care Team Providers Care Ordering Machine Operator Name Role Phone Jason Batres MD Primary Care Provi margarita Encounter Details Date Type Department Care Team (Late st Contact Info) Description 10/12/2006 Before PRISM Converted Visit (Maple) [facility] - Maple conversion [address] [place] [address] Jeff Camargo MD [address] [place] [phone] Social History Tobacco Use Types Packs/Day Years Used Date Smoking Tobacco: Never Assessed Sex and Gender Information Value Date Recorded Sex Assigned at Male 06/12/2023 11:45 EDT Legal Sex Male 18:05 EST Gender Identity Male 10/03/2019 21:06 EDT Sexual Orientation Straight 06/12/2023 11 :45 EDT documented as of this encounter Progress Notes * Jeff Camargo MD - 01/09/2009 0932 EST INPATIENT PROGRESS NOTE Service Date: 10/12/2006 PT LOC: F002 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 We are looking to finish family education this weekend and discharge him early next week. We will be studying up serial ophthalmology followup. Mr. Scott denies any new problems today. He continues to have significant diplopia. Vital signs are stable. He is afebrile. Chest is clear. Heart is regular. Abdomen soft, bowel sounds positive. His craniotomy is healed well. No calf tenderness or edema is noted. He continues to have significant disconjugate gaze with extensive ocular movement abnormalities. In summary, Tyler is a 45-year-old gentleman status post craniopharyngioma resection. We will continue comprehensive rehabilitation services through this weekend for family education. I will follow up with him after the weekend including discharge instructions and paperwork, as well as arranging appropriate followup. I will discuss with endocrinology the time course of potentially decreasing his hydrocortisone. Signed by Jeff Camargo MD 10/16/2006 13:49 Jewel Trujillo MD Jeff Camargo MD - Jeff Camargo MD A [facility] Job ID: [id number] Document ID: [id number] cc: \* MERGEFORMAT Kay Camargo MD D: - Jeff Camargo MD A [facility] Job ID: [id number] Document ID: [id number] cc: documented in this encounter Plan of Treatment Not on file documented as of this encounter Visit Diagnoses Not on filedocumented in this encounter Care Teams Ordering Machine Operator Relationship Specialty Start Date End Date Jason Batres MD [address] [place] [phone] PCP - General 08/13/08 05/24/11 documented as of this encounter
--- OUTSIDE RECORDS SUMMARY | 2024-02-28 16:57 | XMS_ITS | Encounter Summary ---
Author Organization [facility] Address [address] [place] [address] Care Team Providers Care Natural Resource Manager Name Role Phone Jason Batres MD Primary Care Provi margarita Encounter Details Date Type Department Care Team (Late st Contact Info) Description 09/28/2006 Before PRISM Converted Visit (Maple) [facility] - Maple conversion [address] [place] [address] Artie Preston MD [address] [place] [phone] Social History Tobacco Use Types Packs/Day Years Used Date Smoking Tobacco: Never Assessed Sex and Gender Information Value Date Recorded Sex Assigned at Male 06/12/2023 11:45 EDT Legal Sex Male 18:05 EST Gender Identity Male 10/03/2019 21:06 EDT Sexual Orientation Straight 06/12/2023 11 :45 EDT documented as of this encounter Progress Notes * Artie Preston MD - 01/10/2009 0057 EST INPATIENT PROGRESS NOTE Service Date: 09/28/2006 PT LOC: F002 Mr. Scott is here with a craniopharyngioma status post resectionHe denies any pain, shortness of breath, lightheadedness. He continues to have diplopia. He is requiring one-to-one supervision secondary to gait instability and impulsivity. Temperature 36.1, pulse 68, respirations 12, blood pressure 87/55. Heart is regular. Lungs are clear. Abdomen soft, nontender, bowel sounds present. Calves are soft and nontender. No focal motor weakness.He does have gait instability and noted diplopia. His craniotomy incision is healed. IMPRESSION 1. Craniopharyngioma. Continue present therapy program. Continue eye patching as needed for diplopia. He does have one-to-one supervision at this time. 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 I did speak with endocrinology at [facility]. Recommended that he maintain a current dosing of 20 mg in the morning and 10 mg at nighttime until they see him some time in November. 3. Hyperglycemia. Currently resolved, continue to monitor clinically. Signed by Artie Preston MD 10/03/2006 08:02 Gregory Chapman MD Artie Preston MD - Artie Preston MD P - danay Job ID: [id number] Document ID: [id number] cc: \* MERGEFORMAT Kaelyn Preston MD D: - Artie Preston MD P Diamond jon Job ID: [id number] Document ID: [id number] cc: documented in this encounter Plan of Treatment Not on file documented as of this encounter Visit Diagnoses Not on filedocumented in this encounter Care Teams Natural Resource Manager Relationship Specialty Start Date End Date Jason Batres MD [address] [place] [phone] PCP - General 08/13/08 05/24/11 documented as of this encounter
--- OUTSIDE RECORDS SUMMARY | 2024-02-28 16:57 | XMS_ITS | Encounter Summary ---
Author Organization [facility] Address [address] [place] [address] Care Team Providers Care Armhole Presser Name Role Phone Jason Batres MD Primary Care Provi margarita Encounter Details Date Type Department Care Team (Late st Contact Info) Description 10/15/2006 Before PRISM Converted Visit (Maple) [facility] - Maple conversion [address] [place] [address] Jeff Camargo MD [address] [place] [phone] Social History Tobacco Use Types Packs/Day Years Used Date Smoking Tobacco: Never Assessed Sex and Gender Information Value Date Recorded Sex Assigned at Male 06/12/2023 11:45 EDT Legal Sex Male 18:05 EST Gender Identity Male 10/03/2019 21:06 EDT Sexual Orientation Straight 06/12/2023 11 :45 EDT documented as of this encounter Progress Notes * Jeff Camargo MD - 01/07/2009 0356 EST INPATIENT PROGRESS NOTE Service Date: 10/15/2006 PT LOC: F002 Mr. Scott is a 45-year-old gentleman status post craniopharyngioma resection with ongoing cognitiveandvisual deficits. His has been present for the last few days for caregiver training. He willcontinue to require close supervision at discharge for safety and impulsivity issues. He denies anyspecific new complaints today but continues to report significant diplopia. Vitals are stable. He is afebrile. Visual exam is unchanged with continued disconjugate gaze and upward and downward ocular paralysis. Chest is clear. Heart is regular. Abdomen is soft. Bowel sounds positive. In summary, Mr. Scott is approaching discharge. Extensive caregiver training has been completed over the last couple of days. I will see him in the morning and make sure he has follow up with neuro-ophthalmology, endocrinology and neurosurgery. I will complete discharge prescriptions and paperwork. Signed by Jeff Camargo MD 10/22/2006 10:10 Jewel Trujillo MD Jeff Camargo MD - Jeff Camargo MD A - eh Job ID: [id number] Document ID: [id number] cc: documented in this encounter Plan of Treatment Not on file documented as of this encounter Visit Diagnoses Not on filedocumented in this encounter Care Teams Armhole Presser Relationship Specialty Start Date End Date Jason Batres MD [address] [place] [phone] PCP - General 08/13/08 05/24/11 documented as of this encounter
--- OUTSIDE RECORDS SUMMARY | 2024-02-28 16:57 | XMS_ITS | Encounter Summary ---
Author Organization [facility] Address [address] [place] [address] Care Team Providers Care Fitness Studies Teacher Name Role Phone Jason Batres MD Primary Care Provi margarita Encounter Details Date Type Department Care Team (Late st Contact Info) Description 09/26/2006 Before PRISM Converted Visit (Maple) [facility] - Maple conversion [address] [place] [address] Artie Preston MD [address] [place] [phone] Social History Tobacco Use Types Packs/Day Years Used Date Smoking Tobacco: Never Assessed Sex and Gender Information Value Date Recorded Sex Assigned at Male 06/12/2023 11:45 EDT Legal Sex Male 18:05 EST Gender Identity Male 10/03/2019 21:06 EDT Sexual Orientation Straight 06/12/2023 11 :45 EDT documented as of this encounter Progress Notes * Artie Preston MD - 01/12/2009 1108 EST INPATIENT PROGRESS NOTE Service Date: 09/26/2006 PT LOC: F002 Mr. Scott is here following a resection. He has some increased awareness of his recent surgery. He was unable to provide adequate history. Temperature 36.8, pulse 61, respirations 16, blood pressure 110/62. Heart is regular. Lungs are clear. Abdomen soft, nontender, bowel sounds present. Calves are soft and nontender. He has no focal motor weakness. Skin is intact without evidence of breakdown. His craniotomy incisions essentially healed. IMPRESSION 1. Craniopharyngioma resection. Continue present therapy programHe is showing some increased awareness, which is positive in terms of neurologic and functional recovery. Continue present PT, OT, and DINING CAR WAITER/WAITRESS and medical psychology intervention. 2. Hyponatremia. He did have hyponatremia at [facility]. His sodium level is at 146 today.Continue to monitor intermittently. 3. Psychiatric. He is doing well of Risperdal. Continue present Effexor. Signed by Artie Preston MD 09/28/2006 08:01 Gregory Chapman MD Artie Preston MD - Artie Preston MD P [employer] Job ID: [id number] Document ID: [id number] cc: \* MERGEFORMAT Kaelyn Preston MD D: - Artie Preston MD P [employer] Job ID: [id number] Document ID: [id number] cc: documented in this encounter Plan of Treatment Not on file documented as of this encounter Procedures Procedure Name Priority Date/Time Associated Diagnosis Comments BUN Routine 09/26/2006 7:15 EDT CREATININE Routine 09/26/2006 7:15 EDT ELECTROLYTES Routine 09/26/2006 7:15 EDT documented in this encounter Results * (ABNORMAL) ELECTROLYTES (09/26/2006 7:15 EDT) Sodium 146(H) 136 - 145 mEq/L [facility] Potassium 4.1 3.5 - 5.0 mEq/L [facility] Chloride 105 96 - 110 mEq/L [facility] CO2 29 24 - 32 mEq/L [facility] Comment:Performed at [place], [place] 09/26/2006 7:15 EDT 09/26/2006 7:36 EDT Artie Preston MD CHEMISTRY & BLOOD GAS O RDERABLES Final Result [facility] [address] [place] [address] * CREATININE (09/26/2006 7:15 EDT) Creatinine 0.95 0.7 - 1.5 mg/dl [facility] GFR, Calculated >60 ml/min/1.7 3m2 [facility] Comment:Performed at [place], [place] 09/26/2006 7:15 EDT 09/26/2006 7:36 EDT Artie Preston MD CHEMISTRY & BLOOD GAS O RDERABLES Final Result Performing Organization Address [facility] Co de Phone Number [facility] [address] [place] [address] * BUN (09/26/2006 7:15 EDT) BUN 19 10 - 26 mg/dl [facility] Comment:Performed at [place], [place] 09/26/2006 7:15 EDT 09/26/2006 7:36 EDT Artie Preston MD CHEMISTRY & BLOOD GAS O RDERABLES Final Result Performing Organization Address [facility] Co de Phone Number [facility] [address] [place] [address] documented in this encounter Visit Diagnoses Not on filedocumented in this encounter Care Teams Fitness Studies Teacher Relationship Specialty Start Date End Date Jason Batres MD [address] [place] [phone] PCP - General 08/13/08 05/24/11 documented as of this encounter
--- OUTSIDE RECORDS SUMMARY | 2024-02-28 16:57 | XMS_ITS | Encounter Summary ---
Author Organization [facility] Address [address] [place] [address] Care Team Providers Care Diabetes Educator Name Role Phone Jason Batres MD Primary Care Provi margarita Encounter Details Date Type Department Care Team (Late st Contact Info) Description 10/03/2006 Before PRISM Converted Visit (Maple) [facility] - Maple conversion [address] [place] [address] Marciano Segovia MD [address] [phone] Social History Tobacco Use Types Packs/Day Years Used Date Smoking Tobacco: Never Assessed Sex and Gender Information Value Date Recorded Sex Assigned at Male 06/12/2023 11:45 EDT Legal Sex Male 18:05 EST Gender Identity Male 10/03/2019 21:06 EDT Sexual Orientation Straight 06/12/2023 11 :45 EDT documented as of this encounter Progress Notes * Marciano Segovia MD - 01/10/2009 1646 EST INPATIENT PROGRESS NOTE Service Date: 10/03/2006 PT LOC: F002 Mr. Scott is a 45-year-old recovering from craniopharyngioma resection. 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 The patient is still showing normal thyroid hormonal levels. He also has relative hypotension without significant associated symptoms. The patient denies fever, chills, or sweats. Temperature is 37.3, pulse 67, respirations 16, blood pressure 85/57. Cardiac rhythm is regular. Lung martinez are clear. Abdomen is soft. JVD is not visible. ASSESSMENT AND PLAN 1. Status post craniopharyngioma. Continue full therapy activities. 2. Steroid replacement will continue with hydrocortisone 20 mg a.m. and 10 mg p.m. 3. Continue Effexor for management of depression. 4. Patient remains on gabapentin to assist with management of nerve based pain. Signed by Marciano Segovia MD 10/08/2006 12:20 Jer Herrera MD Marciano Segovia MD - Marciano Segovia MD P - kmm Job ID: [id number] Document ID: [id number] cc: \* MERGEFORMAT Jacob Segovia MD D: - Marciano Sgeovia MD P - kmm Job ID: [id number] Document ID: [id number] cc: documented in this encounter Plan of Treatment Not on file documented as of this encounter Visit Diagnoses Not on filedocumented in this encounter Care Teams Diabetes Educator Relationship Specialty Start Date End Date Jason Batres MD [address] [place] [phone] PCP - General 08/13/08 05/24/11 documented as of this encounter
--- OUTSIDE RECORDS SUMMARY | 2024-02-28 16:57 | XMS_ITS | Encounter Summary ---
Author Organization [facility] Address [address] [place] [address] Care Team Providers Care Single Resource Boss Name Role Phone Jason Batres MD Primary Care Provi margarita Encounter Details Date Type Department Care Team (Late st Contact Info) Description 09/24/2006 Before PRISM Converted Visit (Maple) [facility] - Maple conversion [address] [place] [address] Artie Preston MD [address] [place] [phone] Social History Tobacco Use Types Packs/Day Years Used Date Smoking Tobacco: Never Assessed Sex and Gender Information Value Date Recorded Sex Assigned at Male 06/12/2023 11:45 EDT Legal Sex Male 18:05 EST Gender Identity Male 10/03/2019 21:06 EDT Sexual Orientation Straight 06/12/2023 11 :45 EDT documented as of this encounter Progress Notes * Artie Preston MD - 01/10/2009 1335 EST INPATIENT PROGRESS NOTE Service Date: 09/24/2006 PT LOC: F002 SUBJECTIVE Mr. Scott is here following a brain tumor with resection. Denies any pain, shortness of breath, or lightheadedness. He has poor awareness of why he remains hospitalized. OBJECTIVE Temperature 35.9, pulse 87, respirations 16, blood pressure 97/65. Heart is regular. Lungs are clear. Abdomen is soft, nontender. Bowel sounds are present. Calves soft, nontender. Craniotomy incisionis well approximated. No evidence of infection. No focal weakness. ASSESSMENT/PLAN 1. Status post brain tumor resection. Continue present therapy program. Continues to have cognitiveimpairment. Monitor surgical incision. Surgery was done down at [facility],and we will need to follow up with them to see if there is any further plans for ongoing management. Diagnosis was a craniopharyngioma. 2. Hyponatremia. He has been stable during this stay. I appreciate internal medicine followup. 3. Pain. Continue Neurontin for mood stabilization, as well as chronic pain management. Signed by Artie Preston MD 09/26/2006 09:16 Gregory Chapman MD Artie Preston MD - Artie Preston MD [employer] Job ID: [id number] Document ID: [id number] cc: \* MERGEFORMAT Artie Preston MD - Artie Preston MD [employer] Job ID: [id number] Document ID: [id number] cc: documented in this encounter Plan of Treatment Not on file documented as of this encounter Visit Diagnoses Not on filedocumented in this encounter Care Teams Single Resource Boss Relationship Specialty Start Date End Date Jason Batres MD [address] [place] [phone] PCP - General 08/13/08 05/24/11 documented as of this encounter
--- OUTSIDE RECORDS SUMMARY | 2024-02-28 16:57 | XMS_ITS | Encounter Summary ---
Author Organization [facility] Address [address] [place] [address] Care Team Providers Care Executive Housekeeper Name Role Phone Jason Batres MD Primary Care Provi margarita Encounter Details Date Type Department Care Team (Late st Contact Info) Description 09/25/2006 Before PRISM Converted Visit (Maple) [facility] - Maple conversion [address] [place] [address] Artie Preston MD [address] [place] [phone] Social History Tobacco Use Types Packs/Day Years Used Date Smoking Tobacco: Never Assessed Sex and Gender Information Value Date Recorded Sex Assigned at Male 06/12/2023 11:45 EDT Legal Sex Male 18:05 EST Gender Identity Male 10/03/2019 21:06 EDT Sexual Orientation Straight 06/12/2023 11 :45 EDT documented as of this encounter Progress Notes * Artie Preston MD - 01/06/2009 0253 EST INPATIENT PROGRESS NOTE Service Date: 09/25/2006 PT LOC: F002 Mr. Scott is here with a craniopharyngioma resection. He has very poor short- term memory. He is unable to provide an adequate history. Vital signs are stable, afebrile. is regular. Lungs are clear. Abdomen soft, nontender, bowel sounds present. Calves are soft and nontender. He continues to have impaired vision, with evidence of diplopia. No focal weakness. Craniotomy incision is well approximated. IMPRESSION 1. Brain tumor status post resection. Continue present therapy programI did [facility] had indicated tapering psychiatric medications such as risperidone andEffexor as tolerated. We are going to discontinue Risperdal at this time, but continue Effexor given potential risks of depression. Given his overall mobility as well, discontinue subcutaneous heparin. 2. Ophthalmologic. He had been on erythromycin eye ointment. There is no evidence of infection and we will discontinue. 3. Meeting is attended today and case is discussed with all team members. Total time spent today was 35 minutes. Greater than 50% of that time is spent in coordination of care and counseling. Signed by Artie Preston MD 09/26/2006 09:16 Gregory Chapman MD Artie Preston MD - Artie Preston MD [employer] Job ID: [id number] Document ID: [id number] cc: \* MERGEFORMAT Kaelyn Preston MD D: - Artie Preston MD [employer] Job ID: [id number] Document ID: [id number] cc: documented in this encounter Plan of Treatment Not on file documented as of this encounter Visit Diagnoses Not on filedocumented in this encounter Care Teams Executive Housekeeper Relationship Specialty Start Date End Date Jason Batres MD [address] [place] [phone] PCP - General 08/13/08 05/24/11 documented as of this encounter
--- OUTSIDE RECORDS SUMMARY | 2024-02-28 16:57 | XMS_ITS | Encounter Summary ---
Author Organization [facility] Address [address] [place] [address] Care Team Providers Care Seed Packer Name Role Phone Unavailable Primary Care Provider Unavailabl e Encounter Details Date Type Department Care Team (Latest Contact Info) Description 10/03/2006 11:53 EDT - 11/02/2006 11:59 EDT Hospital Encounter [address] [address] Artie Preston MD [address] [place] [phone] Discharge Disposition: Auto Discharge Social History Tobacco [...]
--- OUTSIDE RECORDS SUMMARY | 2024-02-28 16:57 | XMS_ITS | Encounter Summary ---
Author Organization [facility] Address [address] [place] [address] Care Team Providers Care Junior Project Coordinator Name Role Phone Unavailable Primary Care Provider Unavailabl e Encounter Details Date Type Department Care Team (Late st Contact Info) Description 01/03/2007 11:10 EDT - 02/01/2007 11:59 EST Hospital Encounter [address] [address] Jason Batres MD [address] [place] [phone] Discharge Disposition: Auto Discharge Social History Tobacco [...]
--- OUTSIDE RECORDS SUMMARY | 2024-02-28 16:57 | XMS_ITS | Encounter Summary ---
Author Organization [facility] Address [address] [place] [address] Care Team Providers Care Cisco Administrator Name Role Phone Unavailable Primary Care Provider Unavailabl e Encounter Details Date Type Department Care Team (Late st Contact Info) Description 12/03/2006 18:06 EDT - 01/02/2007 11:59 EDT Hospital Encounter [address] [address] Jason Batres MD [address] [place] [phone] Discharge Disposition: Auto Discharge Social History Tobacco [...]
--- OUTSIDE RECORDS SUMMARY | 2024-02-28 16:57 | XMS_ITS | Encounter Summary ---
Author Organization [facility] Address [address] [place] [address] Care Team Providers Care Client Executive Name Role Phone Jason Batres MD Primary Care Provi margarita Encounter Details Date Type Department Care Team (Late st Contact Info) Description 10/11/2006 Before PRISM Converted Visit (Maple) [facility] - Maple conversion [address] [place] [address] Marciano Segovia MD [address] [phone] Social History Tobacco Use Types Packs/Day Years Used Date Smoking Tobacco: Never Assessed Sex and Gender Information Value Date Recorded Sex Assigned at Male 06/12/2023 11:45 EDT Legal Sex Male 18:05 EST Gender Identity Male 10/03/2019 21:06 EDT Sexual Orientation Straight 06/12/2023 11 :45 EDT documented as of this encounter Progress Notes * Marciano Segovia MD - 01/07/2009 0222 EST INPATIENT PROGRESS NOTE Service Date: 10/11/2006 PT LOC: Mr. Scott is a 45-year-old recovering from resection of craniopharyngioma. 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 He has continued to be relatively hypotensive. He denies orthostatic dizziness, chest pain or headache. Temperature is 36.4, pulse is 64, respirations 16. Blood pressure 84/59. Skull wound is healing well. Cardiac rhythm is regular. Lung martinez are clear. Abdomen is soft. JVD not visible. ASSESSMENT AND PLAN 1. Continue comprehensive therapy activities following resection of craniopharyngioma. 2. Hypocortisolism. Continue hydrocortisone therapy. 3. Relative hypotension. Continue monitoring blood pressure response. Signed by Marciano Segovia MD 10/24/2006 09:47 Jer Herrera MD Marciano Segovia MD - Marciano Segovia MD A - cs1 Job ID: [id number] Document ID: [id number] cc: documented in this encounter Plan of Treatment Not on file documented as of this encounter Visit Diagnoses Not on filedocumented in this encounter Care Teams Client Executive Relationship Specialty Start Date End Date Jason Batres MD [address] [place] [phone] PCP - General 08/13/08 05/24/11 documented as of this encounter
--- OUTSIDE RECORDS SUMMARY | 2024-02-28 16:57 | XMS_ITS | Encounter Summary ---
Author Organization [facility] Address [address] [place] [address] Care Team Providers Care French Folding Machine Operator Name Role Phone Jason Batres MD Primary Care Provi margarita Encounter Details Date Type Department Care Team (Late st Contact Info) Description 10/10/2006 Before PRISM Converted Visit (Maple) [facility] - Maple conversion [address] [place] [address] Jeff Camargo MD [address] [place] [phone] Social History Tobacco Use Types Packs/Day Years [...] 1538 EST INPATIENT PROGRESS NOTE Service Date: 10/10/2006 PT LOC: F002 Mr. Scott is a 45-year-old gentleman with craniopharyngioma resection, ongoing cognitive issues, impulsivity and diplopia. He continues to require one-to-one supervision for his lack of safety awareness. We continue to work on discharge planning which will be a challenge. No new complaints were brought up by Mr. Scott today. Vitals are stable. He is afebrile. Chest is clear. Heart is regular. Abdomen is soft. Bowel sounds positive. No calf tenderness or edema is noted. He continues to have significant diplopia and disconjugate gaze. Scalp incision is healing well. In summary, Mr. 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 He continues to present with significant impairments of cognition and safety. He will remain on the rehabilitation service as we continue to work on discharge planning. As he is still one-to-one supervision, subacute transfer is not an option at this point. We will continue to monitor his neurologicstatus. Signed by Jeff Camargo MD 10/15/2006 13:27 Jewel Trujillo MD Jeff Camargo MD - Jeff Camargo MD A - eh Job ID: [id number] Document ID: [id number] cc: documented in this encounter Plan of Treatment Not on file documented as of this encounter Visit Diagnoses Not on filedocumented in this encounter Care Teams French Folding Machine Operator Relationship Specialty Start Date End Date Jason Batres MD [address] [place] [phone] PCP - General 08/13/08 05/24/11 documented as of this encounter
--- OUTSIDE RECORDS SUMMARY | 2024-02-28 16:57 | XMS_ITS | Encounter Summary ---
Author Organization [facility] Address [address] [place] [address] Care Team Providers Care Pound Keeper Name Role Phone Jason Batres MD Primary Care Provi margarita Encounter Details Date Type Department Care Team (Late st Contact Info) Description 10/26/2006 Office Visit [facility] [place] conversion [address] [place] [address] Clau Joseph MD 8 [facility], [address] [place] [address] Social History Tobacco Use Types Packs/Day Years Used Date Smoking Tobacco: Never Assessed Sex and Gender Information Value Date Recorded Sex Assigned at Male 06/12/2023 11:45 EDT Legal Sex Male 18:05 EST Gender Identity Male 10/03/2019 21:06 EDT Sexual Orientation Straight 06/12/2023 11 :45 EDT documented as of this encounter Progress Notes * Clau Joseph - 04/25/2009 0349 EST Care Center - Physician Summary Registration Date/Time: 10/26/2006 12:21 Time Seen: 15:09. Arrived- By private vehicle. Historian- patient. HISTORY OF PRESENT ILLNESS Chief Complaint: FEVER. tachycardia. This started just prior to arrival and is still present. The patient has had measured fever of 100 F. No muscle aches, fatigue, chest pain, dyspnea or cough. No diarrhea, altered mental status, skin rash or joint pain. No decreased urine output. Additional history - He has a recent hospitalization (pt s/p brain tumor removal. was in [facility] in until 10/16/2006.). No known contact with a sick individual. Hasnot recently been ill. Patient has not had similar symptoms previously. The patient was seen recently at this facility (noted at rehab to have tachycardia/fever. felt his balance was a little worse than normal. sent here for eval). REVIEW OF SYSTEMS The patient has had a mild occipital headache. No anorexia, palpitations, sputum production, nauseaor flank pain. No vomiting, sinus pain or sore throat. PAST HISTORY See nurses notes. Medications: The patient's medications have been reviewed. Allergies: No known drug allergies. SOCIAL HISTORY Nonsmoker. No alcohol use or drug use. The patient lives with spouse. Has good social support. ADDITIONAL NOTES The nursing notes have been reviewed. PHYSICAL EXAM Appearance: Alert. No acute distress. Vital Signs: Have been reviewed- tachycardic; febrile. Eyes: Pupils equal, round and reactive to light. ENT: Ears normal. Pharynx normal. Neck: Normal inspection. Neck supple. No meningeal signs or lymphadenopathy. CVS: Tachycardia. Heart sounds normal. Pulses normal. Respiratory: No respiratory distress. Breath sounds normal. Chest nontender. Abdomen: Abdomen soft and nontender. No organomegaly. Back: Normal inspection. No tenderness. Skin: Normal skin color and turgor. Skin warm and dry. No rash. Extremities: Extremities exhibit normal ROM. Extremities nontender. Neuro: Oriented X 3. No motor deficit. No sensory deficit. Reflexes normal. LABS, X-RAYS, AND EKG Chest X-ray: Infiltrate in the right upper lobe. Normal heart size. Mediastinum normal. No mass, pneumothorax or pleural effusion. Views: PA and lateral. Technique: good. The X-rays were independently viewed by me and discussed with the radiologist. A comparison with prior films reveals that the findings are new. CBC: WBC 17.00. Segs 86.3. Hgb 13.1. HCT 37.8. Platelets 215. Chemistries: Normal except as follows. K- 3.5. Glucose - 128. PROGRESS AND PROCEDURES Patient and family counseled regarding the patient's stable condition, diagnosis and need for follow-up. Disposition: Discharged home. Condition: good. CLINICAL IMPRESSION Bacterial pneumonia. Mental status assessed; vital signs recorded & reviewed; empiric antibiotics given in the ED. INSTRUCTIONS Rest. Drink plenty of fluids. Warnings: GENERAL WARNINGS: Return or contact your physician immediately if your condition worsens or changesunexpectedly, if not improving as expected, or if other problems arise. Specifically return if breathing difficulty or fever greater than 102 degrees F and not controlled byacetaminophen. Prescription Medications: Zithromax 250 mg tablets: take 1 orally every day for 4 days. Total course 5 days (take first dose tomorrow morning). OTC Medications: Acetaminophen 500 mg (available over the counter): take 2 orally every 6 hours as needed for fever. (Electronically signed by Clau Joseph M.D. 10/26/2006 22:53) Care Center - Nursing Summary RegistrationDate/Time: 10/26/2006 12:21 TRIAGE Initial Assessment Triage time 13:53. BP: 122 / 80 sitting R arm manual (reg adult cuff). HR: 104 regular. RR:18. Temp: 100.2 oral. --1353 Jenifer Wilder, Triage time 14:16. --1424 Doreen Call, R.N.. Medications Effexor: XR 75mg. Gabapentin: daily (600). Hydrocortisone Tablets: 10mg daily. Protonix: 40mg. --1431 Doreen Call, R.N.. Allergies No history of allergy to LATEX. No known drug allergies. --1424 Doreen Call, R.N.. History Chief Complaint: (TACHYCARDIA). Arrived by private vehicle. Historian: patient. --1353 Jenifer Wilder, This started just prior to arrival. Pain level now: 0/10. The patient has had fever (new today). (Pt. was having BP taken just prior to Rehab treatment, when Pulse was found to be high. Pt. seems more unbalanced today than usual. (Pt. reports blind spot in right visual field) ). PAST HX: No history of diabetes mellitus, hypertension, heart disease or lung disease. (skin canceron chest). (Benign brain tumor (surgery 5-6 wks ago)). SOCIAL HX: Nonsmoker. (Has 2 appts. with neurologist next week at [facility] [place] Arrived by private vehicle and accompanied by family. Historian: patient. --1424 Doreen Call R.N.. PAST HX. PHYSICAL ASSESSMENT (Radial Pulse is 108). Respirations not labored. Skin is dry. Skin is cool. (Face is slightly flushed). --1425 Doreen Call R.N. Alert. Appears in no acute distress. Oriented X 3. (Pt. has left eye patch on). Respirations not labored. --1432 Kyle LezamaN. late entry -. (Wet area noted over slacks on pt. arrival. ? incontinence of urine. Reported to MD).--1542 Doreen Call R.N.. NURSING PROGRESS NOTES Two patient identifiers checked. Checked patient name and birthdate. Patient gowned. Call light placed in reach. Side rails up x 2. Bed placed in lowest position. Brakes of bed on. Patient ready for evaluation. --1425 Kyle LezamaN. Clean catch urine collected. Urine dipstick, clean catch sample: negative for blood, leukocyte esterase, nitrite, glucose, ketones, protein and bilirubin. --1530 Jenifer Wilder, Blood samples drawn by nurse per protocol and sent to lab: [facility]. --1538 Rebecca Iqbal R.N. Care transferred and report given (Nida Iqbal, JARVIS). --1541 Doreen Call R.N. Two patient identifiers checked. Checked patient name and birthdate. ACETAMINOPHEN 975 mg X 1 PO. . --1600 Rebecca Iqbal R.N. Pre-procedure time-out completed per protocol: verified identity of patient (name and birthdate); verification done by care team (nurse). . --1607 Katherine Kay, AZITHROMYCIN 500 mg PO. . --1608 Katherine Kay, . DISPOSITION / DISCHARGE Patient reports pain level on departure as 0/10. Condition at departure: stable. Nolearning barriers present. Discharge instructions reviewed with the patient and family. Reviewed warnings (return ifcondition worsens or does not improve). Reviewed medication side effects, precautions, dosing and course; prescription (s) given to the patient (Azithromycin 500mg once a day). Treatments reviewed (Drink plenty of fluids and rest). Reviewed referrals (PCP or return to [facility]). Patient verbalized understanding. Written instructions provided in [place]. The patient was discharged home and accompaniedby family. The patient left the Emergency Department ambulatory and via private vehicle. Family member driving. --1613 Katherine Kay, . Locked/Released at 10/26/2006 16:13 by Katherine Kay, documented in this encounter Plan of Treatment Not on file documented as of this encounter Visit Diagnoses Not on filedocumented in this encounter Care Teams Pound Keeper Relationship Specialty Start Date End Date Jason Batres MD [address] [place] [phone] PCP - General 08/13/08 05/24/11 documented as of this encounter
--- OUTSIDE RECORDS SUMMARY | 2024-02-28 16:57 | XMS_ITS | Encounter Summary ---
Author Organization [facility] Address [address] [place] [address] Care Team Providers Care Stunt Driver Name Role Phone Unavailable Primary Care Provider Unavailabl e Encounter Details Date Type Department Care Team (Late st Contact Info) Description 10/26/2006 12:19 EDT Hospital Encounter [address] [address] Andie Rogers MD [address] [place] [address] Clau Joseph MD [address] [place] [address] [address] [place] [address] Discharge Disposition: Auto Discharge Social History Tobacco [...] Procedure Name Priority Date/Time Associated Diagnosis Comments CHEST PA AND LATERAL 10/26/2006 14:58 EDT documented in this encounter Results * CHEST PA AND LATERAL (10/26/2006 14:58 EDT) Anatomical Region Laterality Modality Other 10/26/2006 14:5 8 EDT Narrative 09/02/2008 14:19 EDT s/p brain tumor resection with fever of unknown origin r/o pneumonia CHEST PA AND LAT ??Oct 26, 2006 2:58:00 PM Signs and Symptoms: ??s/p brain tumor resection with fever of unknown origin r/o pneumonia. PA and lateral views of the chest are compared with an AP supine view done elsewhere on September 07, 2006. There is new ill-defined opacity in the right upper lobe extending from the immediate suprahilar region upward medially. Although this finding is subtle, the apices are asymmetric and I think most likely that there is a right upper lobe pneumonia. Otherwise the lungs are clear and well expanded. The cardiac silhouette is normal. There is no pleural effusion. Impression: Probable right upper lobe pneumonia Procedure Note Gurwinder Thomas MD - 09/02/2008 s/p brain tumor resection with fever of unknown origin r/o pneumonia CHEST PA AND LAT Oct 26, 2006 2:58:00 PM Signs and Symptoms: s/p brain tumor resection with fever of unknown origin r/o pneumonia. PA and lateral views of the chest are compared with an AP supine view done elsewhere on September 07, 2006. There is new ill-defined opacity in the right upper lobe extending from the immediate suprahilar region upward medially. Although this finding is subtle, the apices are asymmetric and I think most likely that there is a right upper lobe pneumonia. Otherwise the lungs are clear and well expanded. The cardiac silhouette is normal. There is no pleural effusion. Impression: Probable right upper lobe pneumonia us Clau Joseph MD IMG DIAGNOSTIC IMAGING ORD ERABLES Final Result documented in this encounter Visit Diagnoses Not on filedocumented in this encounter
--- OUTSIDE RECORDS SUMMARY | 2024-02-28 16:57 | XMS_ITS | Encounter Summary ---
Author Organization [facility] Address [address] [place] [address] Care Team Providers Care Local City Driver Name Role Phone Jason Batres MD Primary Care Provi margarita Encounter Details Date Type Department Care Team (Late st Contact Info) Description 10/11/2006 Before PRISM Converted Visit ([place]) [facility] [place] conversion [address] [place] [address] Jeff Camargo MD [address] [place] [id number] Social History Tobacco Use Types Packs/Day Years Used Date Smoking Tobacco: Never Assessed Sex and Gender Information Value Date Recorded Sex Assigned at Male 06/12/2023 11:45 EDT Legal Sex Male 18:05 EST Gender Identity Male 10/03/2019 21:06 EDT Sexual Orientation Straight 06/12/2023 11 :45 EDT documented as of this encounter Progress Notes * Jeff Camargo MD - 01/08/2009 1753 EST INPATIENT PROGRESS NOTE Service Date: 10/11/2006 PT LOC: F002 SUBJECTIVE Mr. 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 We are starting to get pressure from the insurance company to discharge Mr. Scott as they do not feel we have any further need to keep him at the acute level of service. At this point, Mr. Scott presents with ongoing severe safety issues. These are directly related to neurologic consequences of histumor. He has been making gains in regard to his cognition and impulsivity. Speech and language pathology feels very strongly that they have continued goals for improving his safety. Furthermore, he continues to present with significant balance deficits that physical therapy continues to have goalsfor working on. His is present today, and we will be reviewing his progress and care needs. We discussed neuroophthalmology followup, endocrine followup, and neurosurgical followup. Mr. Scott denied any pain complaints today. He has been having some back pain complaints daily, butdid not specifically express that to me. He continues to report severe diplopia when he is not wearing his eye patch. OBJECTIVE Vitals are stable. He is afebrile. Chest is clear. Heart is regular. Abdomen is soft. Bowel sounds positive. No calf tenderness or edema is noted. He continues to present with severe ocular movement abnormalities with decreased upward and downward gaze and limitations of right eye medial gaze. ASSESSMENT/PLAN In summary, Mr. Scott is a complicated 45-year-old patient status post craniopharyngioma resection with ongoing balance, safety, and visual disturbances. He will continue acute level rehabilitation services to maximize his functional recovery and try and make it safe for him to go home with his . At this point, to maintaintheir household and financial stability, it would be very difficult forher to provide the 24-hour direct visual supervision that he requires. We would like to have him remain on the rehabilitation service until we can get him to a safer level of mobility and self-care so that he is not at very high risk for self-injury when he gets home. Signed by Jeff Camargo MD 10/15/2006 13:28 Jewel Trujillo MD - Jeff Camargo MD [employer] Job ID: [id number] Document ID: [id number] cc: \* [employer] - Jeff Camargo MD [employer] Job ID: [id number] Document ID: [id number] cc: documented in this encounter Plan of Treatment Not on file documented as of this encounter Visit Diagnoses Not on filedocumented in this encounter Care Teams Local City Driver Relationship Specialty Start Date End Date Jason Batres MD [address] [place] [phone] PCP - General 08/13/08 05/24/11 documented as of this encounter
--- OUTSIDE RECORDS SUMMARY | 2024-02-28 16:57 | XMS_ITS | Encounter Summary ---
Author Organization [facility] Address [address] [place] [address] Care Team Providers Care Medical Technologist Prn Name Role Phone Jason Batres MD Primary Care Provi margarita Encounter Details Date Type Department Care Team (Late st Contact Info) Description 09/19/2006 Before PRISM Converted Visit ([place]) [facility] - [place] conversion [address] [place] [address] Marciano Segovia MD [address] [phone] Social History Tobacco Use Types Packs/Day Years Used Date Smoking Tobacco: Never Assessed Sex and Gender Information Value Date Recorded Sex Assigned at Male 06/12/2023 11:45 EDT Legal Sex Male 18:05 EST Gender Identity Male 10/03/2019 21:06 EDT Sexual Orientation Straight 06/12/2023 11 :45 EDT documented as of this encounter Progress Notes * Marciano Segovia MD - 01/06/2009 0453 EST INPATIENT PROGRESS NOTE Service Date: 09/19/2006 PT LOC: F002 SUBJECTIVE Mr. 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 This was done at [facility] by a orbital zygomatic approach. 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 The patient was up this morning with good therapy activities but developed a period of unresponsiveness at approximately 11 AM after going back to bed. Multiple staff members were unable to awaken him. When I evaluated him at that time, he did have responsiveness to sharp sternal rub but otherwise would not open eyes or make contact. Because of his recent operation and the risk for hemorrhage a STAT CT head scan was performed, which revealed no evidence of new hemorrhage, mid-line shift, or other abnormalities. We did make the images from [facility] available to our radiology team for comparison. Laboratory evaluation on a STAT basis was also requested. Thus far the CBC is back which shows no significant abnormalities because of his recent hyponatremia electrolytes have also been ordered Theywill be reviewed when available. Additional studies included thyroid hormone levels. Of note is that although his recent TSH is normal it may be that there was sufficient pituitary obstruction that the TSH maynot be an accurate reflection of his thyroid hormonal status. EXAM Vital signs at the time of his evaluation when he was unresponsive - temperature 36.1??; pulse 55; respiration 16; blood pressure 103/65. Lung martinez are clear. Respiratory effort not increased Cardiac rhythm regular. Abdomen is soft. Neck veins are not visibly distended. The patient had a withdrawal from noxious stimulus when sternal rub was applied. ASSESSMENT/PLAN 1. Period of unresponsiveness likely due to severe fatigue from therapy activities this morning. Heis subsequently aroused and was upright and awake for intake of his lunch. We will continue to watch his mental status and neurologic status closely. 2. High risk for further hormonal dysfunction -Continue hydrocortisone. Follow up thyroid hormone studies when available. 3. Evaluate electrolytes given recent hyponatremia. 4. I have discussed this in detail with Dr. Artie Preston, the attending highballer. A total of 55 minutes were spent on this case today - greataer than 50% of which in bedside care and evaluation as well as personal review of CT scan, images, and reexamination and review of current mental and neurologic status. Signed by Marciano Segovia MD 09/21/2006 16:28 Jason Segovia, [facility]OSPITALrosetta Segovia MD Marciano Segovia MD - Jacob Segovia MD P - Job ID: [id number] Document ID: [id number] cc: documented in this encounter Plan of Treatment Not on file documented as of this encounter Procedures Procedure Name Priority Date/Time Associated Diagnosis Comments COMPLETE BLOOD COUNT Routine 09/19/2006 11:48 EDT BUN Routine 09/19/2006 11:48 EDT T3 FREE Routine 09/19/2006 11:48 EDT T4 FREE Routine 09/19/2006 11:48 EDT GLUCOSE, SERUM Routine 09/19/2006 11:48 EDT CREATININE Routine 09/19/2006 11:48 EDT CORTISOL Routine 09/19/2006 11:48 EDT ELECTROLYTES Routine 09/19/2006 11:48 EDT documented in this encounter Results * GLUCOSE, SERUM (09/19/2006 11:48 EDT) Glucose, Serum 82 70 - 100 mg/dl [facility] Comment:Performed at [facility], [place], [place] 09/19/2006 11:4 8 EDT 09/19/2006 11:50 EDT us Artie Preston MD CHEMISTRY & BLOOD GAS O RDERABLES Final Result [facility] [address] [place] [address] * ELECTROLYTES (09/19/2006 11:48 EDT) Sodium 140 136 - 145 mEq/L [facility] Potassium 4.2 3.5 - 5.0 mEq/L [facility] Chloride 97 96 - 110 mEq/L [facility] CO2 31 24 - 32 mEq/L [facility] Comment:Performed at [facility], [place], [place] 09/19/2006 11:4 8 EDT 09/19/2006 11:50 EDT Artie Preston MD CHEMISTRY & BLOOD GAS O RDERABLES Final Result Performing Organization Address [facility] Co de Phone Number [facility] [address] [place] [address] * T4 FREE (09/19/2006 11:48 EDT) Free T4 1.0 0.8 - 1.8 ng/dL [facility] 09/19/2006 11:4 8 EDT 09/19/2006 11:50 EDT Artie Preston MD CHEMISTRY & BLOOD GAS O RDERABLES Final Result Performing Organization Address [facility] Co de Phone Number [facility] [address] [place] [address] * (ABNORMAL) T3 FREE (09/19/2006 11:48 EDT) T3, Free 2.1(L) 2.3 - 4.2 pg/mL [facility] 09/19/2006 11:4 8 EDT 09/19/2006 11:50 EDT Artie Preston MD CHEMISTRY & BLOOD GAS O RDERABLES Final Result Performing Organization Address [facility] Co de Phone Number [facility] [address] [place] [address] * CREATININE (09/19/2006 11:48 EDT) Creatinine 1.02 0.7 - 1.5 mg/dl [facility] GFR, Calculated >60 ml/min/1.7 3m2 [facility] Comment:Performed at [facility], [place], [place] 09/19/2006 11:4 8 EDT 09/19/2006 11:50 EDT Artie Preston MD CHEMISTRY & BLOOD GAS O RDERABLES Final Result Performing Organization Address City/[facility]/ZIP Co de Phone Number [facility] [address] [place] [address] * CORTISOL (09/19/2006 11:48 EDT) Cortisol 27 ug/dl [facility] Comment: 7-9a.m.=4.3-22.4 3-5p.m.=3.1-16.7 09/19/2006 11:4 8 EDT 09/19/2006 11:50 EDT Artie Preston MD CHEMISTRY & BLOOD GAS O RDERABLES Final Result Performing Organization Address [facility] de Phone Number [facility] [address] [place] [address] * (ABNORMAL) HEMAGRAM (09/19/2006 11:48 EDT) WBC 7.82 4.0 - 10.4 K/cmm [facility] RBC 3.69(L) 4.36 - 5.78 M/cmm [facility] Hemoglobin 12.2(L) 13.8 - 17.3 gm/dl [facility] HCT 34.4(L) 39.5 - 50.2 % [facility] MCV 93 81 - 95 fl [facility] MCH 32.9 27.6 - 33.0 pg [facility] MCHC 35.3 32.8 - 36.4 gm/dl [facility] PLT 338(H) 141 - 320 K/cmm [facility] RDW-CV 11.1(L) 11.8 - 14.1 % [facility] Comment:Performed at [facility], [place], [place] 09/19/2006 11:4 8 EDT 09/19/2006 11:50 EDT Artie Preston MD HEMATOLOGY & PF4 ORDERA BLES Final Result Performing Organization Address City/[facility]/ZIP Co de Phone Number [facility] [address] [place] [address] * BUN (09/19/2006 11:48 EDT) BUN 16 10 - 26 mg/dl [facility] Comment:Performed at [facility], [place], [place] 09/19/2006 11:4 8 EDT 09/19/2006 11:50 EDT Artie Preston MD CHEMISTRY & BLOOD GAS O RDERABLES Final Result Performing Organization Address [facility] Co de Phone Number [facility] [address] [place] [address] documented in this encounter Visit Diagnoses Not on filedocumented in this encounter Care Teams Medical Technologist Prn Relationship Specialty Start Date End Date Jason Batres MD [address] [place] [phone] PCP - General 08/13/08 05/24/11 documented as of this encounter
--- OUTSIDE RECORDS SUMMARY | 2024-02-28 16:57 | XMS_ITS | Encounter Summary ---
Author Organization [facility] Address [address] [place] [address] Care Team Providers Care Sales Representative Public Utilities Name Role Phone Unavailable Primary Care Provider Unavailabl e Encounter Details Date Type Department Care Team (Late st Contact Info) Description 11/03/2006 16:01 EDT Hospital Encounter [facility] - Other [address] [place] [address] Jason Batres MD [address] [place] [phone] Social History Tobacco Use Types Packs/Day Years [...]
--- OUTSIDE RECORDS SUMMARY | 2024-02-28 16:57 | XMS_ITS | Encounter Summary ---
Author Organization [facility] Address [address] [place] [address] Care Team Providers Care Qc Chemist Name Role Phone Jason Batres MD Primary Care Provi margarita Encounter Details Date Type Department Care Team (Late st Contact Info) Description 12/26/2006 Before PRISM Converted Visit (Maple) [facility] - Maple conversion [address] [place] [address] Kendal Salinas O, PT [address] [place] [phone] Social History Tobacco Use Types Packs/Day Years Used Date Smoking Tobacco: Never Assessed Sex and Gender Information Value Date Recorded Sex Assigned at Male 06/12/2023 11:45 EDT Legal Sex Male 18:05 EST Gender Identity Male 10/03/2019 21:06 EDT Sexual Orientation Straight 06/12/2023 11 :45 EDT documented as of this encounter Progress Notes * Kendal Palmer, PT - 01/13/2009 1341 EST [facility] PHYSICAL THERAPY PROGRESS/RECERTIFICATION NOTE SERVICE DATE: 12/26/2006 REFERRING PROVIDER: Artie Preston MD PRIMARY CARE PROVIDER: Chente Gomes MD DIAGNOSIS/ONSET/ICD9#: 1. Gait abnormality / 09/06/2006 / 781.2 2. Unspecified behavior neoplasm of pituitary gland / 09/06/2006 / 237.0 PRECAUTIONS: Diplopia SUBJECTIVE Patient reports that he went and saw the neuroophthalmologist yesterday, but he could not recall the details of the visit. He is frustrated with his visual impairments and feels like he would be ???okay if it wasnt for that.?? He reports increased walking at home lately which he thinks had led to left hip pain. He states the pain is always about a 4/10 and at worst 6-7/10. He feels like the stretches have been helping but he doesnt like to do them, his has to ???nag?? him to do them. OBJECTIVE The patient has been receiving physical therapy two times a week for 60-minute treatment sessions. Interventions have included strengthening exercises, joint mobilizations for left hip pain, stair training, balance training, and patient education.The patients status is as follows: GAIT Patient completed 1631 feet in the six-minute walk test without an assistive device on December 21, 2006, which has improved from 1468 feet on October 22, 2006 and 1532 feet on November 23, 2006. Patient has mild left hip pain at the end of the walk. Indoors, patient is independent with ambulation no device. For oambulation, the patient is independent with no device including curb negotiation. STAIRS Patient is independent up and down multiple stairs with no railing in the clinic. Patient and report that he does need assist on the bleachers at his [employer] game secondary to the increased dimensions of the step length and height, as well as multiple social distractions. Additionally, patient does not like to wear an eye patch in public situations, so diplopia is worse. BALANCE Patient scored a 24/24 on the Dynamic Gait Index today. Patient has not had any incidents of loss of balance or falls either in the home, clinic, or community. RANGE OF MOTION Patients left hip flexion is 115 degrees with some mild discomfort. Left hip internal rotation is 0degrees with pain. Right hip exrotation 10 degrees, no pain. OTHER Patient has demonstrated independence with the home exercise program for stretching and strengthening, as well as independence with use of equipment here at the clinic, including the stationary bike and the NuStep. He has an instructional sheet which he uses to cue him and although demonstrates inde pendence with the program, he continues to ask for reassurance that he is doing it right. He continues to have poor short-term memory and can recall events of the session inconsistently. ASSESSMENT Patient has made excellent progress towards goalsset at initial evaluation. Feel his gait and balance are near baseline for him at this point. Feel his primary barriers to complete independence in the community and home are his visual impairments and his impaired short-term memory. He has decreasedleft hip range of motion and strength as well as chronic left hip pain secondary to his osteoarthritis that significantly limits his over-ground walking tolerance. Feel strongly that he would benefitfrom aquatic physical therapy to address these impairments. Additionally, would recommend one additional skilled physical therapy session at his local gym to establish an exercise tailored to his [facility] needs and impairments, as well as one final session in the clinic for education of his spouse,Nguyen. Patient has met all goals, except short-term goal 5 and long-term goal 5, which both relate to patientability to recall events in physical therapy, and also long-term goal 3, which was for him to increase his six-minute walk test by 1500 feet without an increase in left hip pain. All other goals are met. NEW GOALS: 1) visit to local gym with patient and set up an exercise program for him, along with accompanying instructions for people on how to assist Jeff when they are supervising him at the gym. 2) Complete educational session with regarding patientstatus and recommendations. PLAN Patient to have two additional skilled physical therapy sessions, one here in the clinic for patient education with patientspouse and one at his local gym to establish an exercise program. Would recommend followup in one month to reevaluation patientprogress and address any needs at that time. Patient to begin aquatic physical therapy in the next two weeks. Patient also scheduled to see orthopedic doctor in a few weeks to evaluate his hip and explore pain management options. Thank you for this referral. Signed by Kendal Palmer PT 12/31/2006 09:30 Kendal Palmer PT cc: MD Artie Noble MD - Kendal Palmer PT P - plf Job ID: [id number] Document ID: [id number] documented in this encounter Plan of Treatment Not on file documented as of this encounter Visit Diagnoses Not on filedocumented in this encounter Care Teams Qc Chemist Relationship Specialty Start Date End Date Jason Batres MD [address] [place] [phone] PCP - General 08/13/08 05/24/11 documented as of this encounter
--- OUTSIDE RECORDS SUMMARY | 2024-02-28 16:57 | XMS_ITS | Encounter Summary ---
Author Organization [facility] Address [address] [place] [address] Care Team Providers Care Antique Furniture Restorer Name Role Phone Jason Batres MD Primary Care Provi margarita Encounter Details Date Type Department Care Team (Late st Contact Info) Description 10/08/2006 Before PRISM Converted Visit (Maple) [facility] - Maple conversion [address] [place] [address] Marciano Segovia MD [address] [phone] Social History Tobacco Use Types Packs/Day Years Used Date Smoking Tobacco: Never Assessed Sex and Gender Information Value Date Recorded Sex Assigned at Male 06/12/2023 11:45 EDT Legal Sex Male 18:05 EST Gender Identity Male 10/03/2019 21:06 EDT Sexual Orientation Straight 06/12/2023 11 :45 EDT documented as of this encounter Progress Notes * Marciano Segovia MD - 01/09/2009 0933 EST INPATIENT PROGRESS NOTE Service Date: 10/08/2006 PT LOC: F002 Mr. 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 Patient also is requiring treatment for depression. He denies fever, chills, or sweats. He reports good pain control. Temperature is 37, pulse 65, respirations 16, blood pressure 106/69. Cranial wound is healing. Lungfields are clear. Abdomen is soft. JVD is not visible. ASSESSMENT AND PLAN 1. Continue comprehensive therapy activities related to craniopharyngioma recovery. 2. Continue hydrocortisone for hypocortisolism. 3. Continue followup of thyroid studies. 4. Maintain antidepressant drug therapy. Signed by Marciano Segovia MD 10/16/2006 11:34 Jer Herrera MD Marciano Segovia MD - Marciano Segovia MD [employer] Job ID: [id number] Document ID: [id number] cc: \* MERGEFORMAT Jacob Segovia MD D: - Marciano Segovia MD [employer] Job ID: [id number] Document ID: [id number] cc: documented in this encounter Plan of Treatment Not on file documented as of this encounter Visit Diagnoses Not on filedocumented in this encounter Care Teams Antique Furniture Restorer Relationship Specialty Start Date End Date Jason Batres MD [address] [place] [phone] PCP - General 08/13/08 05/24/11 documented as of this encounter
--- OUTSIDE RECORDS SUMMARY | 2024-02-28 16:58 | XMS_ITS | Encounter Summary ---
Author Organization [facility] Address [address] [place] [address] Care Team Providers Care Clinical Admissions Manager Name Role Phone Unavailable Primary Care Provider Unavailabl e Encounter Details Date Type Department Care Team (Latest Contact Info) Description 03/07/2006 12:05 EST Hospital Encounter [facility] Emergency Department - [address] [id number] Emergency, Default, MD Discharge Disposition: Home or Self Care Social [...]
--- OUTSIDE RECORDS SUMMARY | 2024-02-28 16:58 | XMS_ITS | Encounter Summary ---
Author Organization [facility] Address [address] [place] [address] Care Team Providers Care Weight Guesser Name Role Phone Jason Batres MD Primary Care Provi margarita Encounter Details Date Type Department Care Team (Late st Contact Info) Description 09/15/2006 Before PRISM Converted Visit (Maple) [facility] - Maple conversion [address] [place] [address] Franco Rodríguez MD [address] [place] [phone] Social History Tobacco Use Types Packs/Day Years Used Date Smoking Tobacco: Never Assessed Sex and Gender Information Value Date Recorded Sex Assigned at Male 06/12/2023 11:45 EDT Legal Sex Male 18:05 EST Gender Identity Male 10/03/2019 21:06 EDT Sexual Orientation Straight 06/12/2023 11 :45 EDT documented as of this encounter Progress Notes * Franco Rodríguez MD - 01/07/2009 0325 EST INPATIENT PROGRESS NOTE Service Date: 09/15/2006 PT LOC: F002 Jeff is a 45-year-old male with brain tumor. He had an emesis late in the evening. His Scanlon catheter has been removed. His vital signs are stable. He is afebrile. Chest was clear to auscultation. Abdominal exam is benign. I have ordered Zofran for p.r.n. nausea. We will check on his bladder volumes and voiding pattern. Signed by Franco Rodríguez MD 09/17/2006 14:09 Rafaela Faustin MD Franco Rodríguez MD - Nicko Rodríguez MD P - [employer] Job ID: [id number] Document ID: [id number] cc: D: - Franco Rodríguez MD P - [employer] Job ID: [id number] Document ID: [id number] cc: documented in this encounter Plan of Treatment Not on file documented as of this encounter Visit Diagnoses Not on filedocumented in this encounter Care Teams Weight Guesser Relationship Specialty Start Date End Date Jason Batres MD [address] [place] [phone] PCP - General 08/13/08 05/24/11 documented as of this encounter
--- OUTSIDE RECORDS SUMMARY | 2024-02-28 16:58 | XMS_ITS | Encounter Summary ---
Author Organization [facility] Address [address] [place] [address] Care Team Providers Care Manager Water Name Role Phone Unavailable Primary Care Provider Unavailabl e Encounter Details Date Type Department Care Team (Latest Contact Info) Description 01/04/2006 10:51 EST - 01/04/2006 11:59 EST Hospital Encounter [facility] - [address] [address] Dirk Holcomb Discharge Disposition: Auto Discharge Social History Tobacco [...] Procedure Name Priority Date/Time Associated Diagnosis Comments WRIST 2 VIEWS 01/04/2006 11:10 EST documented in this encounter Results * WRIST 2 VIEWS (01/04/2006 11:10 EST) Anatomical Region Laterality Modality Other 01/04/2006 11:1 0 EST Narrative 09/12/2008 4:33 EDT RIGHT TRIQUETRUM F/X ASSESS HEALING AND ALIGNMENT RIGHT WRIST: ??01/04/06 HISTORY: ??Right triquetrum fracture. ??Assess healing. COMPARISON: ??Two views of the right wrist were obtained and compared to the exam from 12/14/05. FINDINGS: ??Again seen are the tiny ossific density over the dorsum of the wrist. ??It does not appear significantly changed since the previous examination. D: ? 01/04/06 T: ? 01/04/06 /amn Procedure Note Promise Valenzuela MD - 09/12/2008 RIGHT TRIQUETRUM F/X ASSESS HEALING AND ALIGNMENT RIGHT WRIST: 01/04/06 HISTORY: Right triquetrum fracture. Assess healing. COMPARISON: Two views of the right wrist were obtained and compared to the exam from 12/14/05. FINDINGS: Again seen are the tiny ossific density over the dorsum of the wrist. It does not appear significantly changed since the previous examination. /[facility] Dirk Holcomb IMG DIAGNOSTIC IMAGING ORDERAB LES Final Result documented in this encounter Visit Diagnoses Not on filedocumented in this encounter
--- OUTSIDE RECORDS SUMMARY | 2024-02-28 16:58 | XMS_ITS | Encounter Summary ---
Author Organization [facility] Address [address] [place] [address] Care Team Providers Care Agent Licensing Clerk Name Role Phone Unavailable Primary Care Provider Unavailabl e Encounter Details Date Type Department Care Team (Latest Contact Info) Description 12/14/2005 12:38 EDT Hospital Encounter [address] [address] Drik Holcomb Discharge Disposition: Auto Discharge Social History [...] Name Priority Date/Time Associated Diagnosis Comments WRIST 3 OR MORE VIEWS 12/14/2005 14:32 EDT documented in this encounter Results * WRIST 3 OR MORE VIEWS (12/14/2005 14:32 EDT) Anatomical Region Laterality Modality Other 12/14/2005 14:3 2 EDT Narrative 09/12/2008 3:37 EDT RIGHT WRIST Pain, s/p fall r/o fx RIGHT WRIST THREE VIEWS 12/14/05 FINDINGS: Three views of the right wrist show a small bony fragment best seen on the lateral view. There may be an associated irregularity to the dorsum of the triquetrum. Cannot rule out triquetral avulsion fracture. D 12/14/05 T 12/15/05 /gabino Procedure Note Tommy Bello MD - 09/12/2008 RIGHT WRIST Pain, s/p fall r/o fx RIGHT WRIST THREE VIEWS 12/14/05 FINDINGS: Three views of the right wrist show a small bony fragment best seen on the lateral view. There may be an associated irregularity to the dorsum of the triquetrum. Cannot rule out triquetral avulsion fracture. D 12/14/05 T 12/15/05 /[facility] us Dirk Holcomb IMG DIAGNOSTIC IMAGING ORDERAB LES Final Result documented in this encounter Visit Diagnoses Not on filedocumented in this encounter
--- OUTSIDE RECORDS SUMMARY | 2024-02-28 16:58 | XMS_ITS | Encounter Summary ---
Author Organization [facility] Address [address] [place] [address] Care Team Providers Care Office Automation Clerk Name Role Phone Jason Batres MD Primary Care Provi margarita Encounter Details Date Type Department Care Team (Late st Contact Info) Description 04/06/2006 Office Visit [facility] [place] conversion [address] [place] [address] Haydee Gillis MD [address] [place] [phone] Social History Tobacco Use Types Packs/Day Years Used Date Smoking Tobacco: Never Assessed Sex and Gender Information Value Date Recorded Sex Assigned at Male 06/12/2023 11:45 EDT Legal Sex Male 18:05 EST Gender Identity Male 10/03/2019 21:06 EDT Sexual Orientation Straight 06/12/2023 11 :45 EDT documented as of this encounter Progress Notes * Sukh, Conv Industrial Fabric Cutter - 04/28/2009 2318 EST Care Center - Physician Summary Registration Date/Time: 04/06/2006 9:36 Arrived- By private vehicle. Historian- patient. HISTORY OF PRESENT ILLNESS Chief Complaint: BACK PAIN. 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 Saw his physician Dr. Gomes who dx contusion . He has been going to PT and taking Ibuprofen. Has not been working.Today with increased pain lower mid back. No radiation down legs, leg weakness or paresthesias. REVIEW OF SYSTEMS No fever, chills, difficulty with urination, urinary frequency or hematuria. PAST HISTORY See nurses notes. He has had prior back pain. Has had intervertebral disc disease 10 years ago, L4-L5, L5-S1. No history of compression fractures (none known by patient). Medications: Ibuprofen 800 mg TID since onset of pain. The patient's medications have been reviewed. See nurses notes. Allergies: No known drug allergies. The patient's allergies have been reviewed. See nurses notes. SOCIAL HISTORY Alcohol use. Nonsmoker. ADDITIONAL NOTES The nursing notes have been reviewed. PHYSICAL EXAM Appearance: Alert. No acute distress. Vital Signs: Have been reviewed. Back: Normal inspection. Spine: no deformity. Full ROM but with increase in pain in lumbar area at end range of motion. Tender to palpation lower lumbar vertebrae and along lumbar paraspinous muscles(muscles more than vertebrae). No tenderness of lower thoracic vertebrae, L1/L2 and lower ribs. Skin: Normal skin color. Skin warm and dry. Neuro: Oriented X 3. Mood/affect normal. No motor deficit. No sensory deficit. Straight leg raising: negative on the right and negative on the left. Reflex exam: right patellar 0, left patellar 0, right Achilles 2+ and left Achilles 2+. L2-S1 5/5 strength bilaterally. LABS, X-RAYS, AND EKG X-Rays: LS spine series. T-Spine X-rays: Wedge compression fracture of T11. Wedge compression fracture of T12. The X-rays were interpreted by the radiologist. The X-rays were independently viewed by me and interpreted contemporaneously by me. LS-Spine X-rays: Degenerative joint disease. No fracture. PROGRESS AND PROCEDURES E.D. Course: Iorder radiographs of L/S spine because of increase in his pain, history of trauma, and tenderness of lower lumbar vertebrae. On initial films, T12 looked abnormal so radiologist requested additional lateral view T10-L2 which revealed the compression fractures. Because patient has NO tenderness over thoracic vertebrae, I do not think these are acute fractures. Patient/family counseled. Disposition: Condition: stable. Discharged home. CLINICAL IMPRESSION Strain (lower lumbar). Contusion (lower lumbar). Thoracic spine compression fracture (lower, most likely old). INSTRUCTIONS Do not work until released. Continue physical therapy. Continue Ibuprofen. You can take Tylenol with codeine at night. Local heat. Follow up with Dr. Gomes next week. You have compression fractures in your lower thoracic spine but because you are not tender on exam over those vertebrae they are most likely notacute.. Prescription Medications: Acetaminophen with codeine (30 mg) take 1-2 tabs po QHS prn pain, dispense #20, no refill.. (Electronically signed by Haydee Gillis MD 04/08/2006 8:37) Care Center - Nursing Summary Registration Date/Time: 04/06/2006 9:36 TRIAGE Initial Assessment Triage time 10:18. BP: 128 / 82 sitting L arm manual. HR: 88. RR: 16. Temp: 98.6 oral. (done by [employer]). --1022 Ria Schwartz R.N.. Medications None. --1023 Ria Schwartz R.N.. Allergies No known drug allergies. --1023 Ria Schwartz R.N.. History Chief Complaint: BACK PAIN. Onset (1 week ago). Pain level now: 6/10. The patient has had trouble walking (some). History of recent trauma- fall (slipped on right butt ). No numbness or tingling. 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 (800mg at 0800am). PAST HX: Negative. No infectious disease exposure. No history of previous surgery. (herniated disc L5,si). SOCIAL HX: Alcohol use; consumes six beers a week. Nonsmoker. No report of abuse. Historian: patient. Arrived by private vehicle. --1022 Ria Schwartz R.N.. PHYSICAL ASSESSMENT Ambulatory to room. Patient gowned. Alert. Oriented X 3. --1023 Ria Schwartz R.N.. DISPOSITION / DISCHARGE Patient reports pain level on departure as 6/10. Condition at departure: unchanged. No learning barriers present. Discharge instructions reviewed with the patient. Reviewed medication; prescription (s) given to the patient (acetaminophen with codeine hs prn). Reviewed referral to family practice (Dr Gomes next week). Work note given (do not work until released). Patient verbalized understanding. Written instructions provided in Serbian. The patient was discharged home. The patient left the Emergency Department ambulatory and via private vehicle. Patient driving. Patient has no belongings. --1316 Ria Schwartz R.N.. Locked/Released at 04/06/2006 13:15 by Ria Schwartz R.N. documented in this encounter Plan of Treatment Not on file documented as of this encounter Visit Diagnoses Not on filedocumented in this encounter Care Teams Office Automation Clerk Relationship Specialty Start Date End Date Jason Batres MD [address] [place] [phone] PCP - General 08/13/08 05/24/11 documented as of this encounter
--- OUTSIDE RECORDS SUMMARY | 2024-02-28 16:58 | XMS_ITS | Encounter Summary ---
Author Organization [facility] Address [address] [place] [address] Care Team Providers Care Study Abroad Coordinator Name Role Phone Jason Batres MD Primary Care Provi margarita Encounter Details Date Type Department Care Team (Late st Contact Info) Description 09/14/2006 Before PRISM Converted Visit [facility] [address] [place] [address] Jeff Camargo MD [address] [place] [id number] Social History Tobacco Use Types Packs/Day Years Used Date Smoking Tobacco: Never Assessed Sex and Gender Information Value Date Recorded Sex Assigned at Male 06/12/2023 11:45 EDT Legal Sex Male 18:05 EST Gender Identity Male 10/03/2019 21:06 EDT Sexual Orientation Straight 06/12/2023 11 :45 EDT documented as of this encounter Progress Notes * Jeff Camargo MD - 01/07/2009 0328 EST INPATIENT PROGRESS NOTE Service Date: 09/14/2006 PT LOC: F002 Mr. 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 He was admitted yesterday. He reports sleeping well his first night on the rehabservice. He is requesting discontinuation of his NicoDerm patch, as he has not been using it. He and I also discussed today that we could discontinue his IV and discontinue his Scanlon catheter. He reports mild left-sided pain from his craniotomy area. Vital signs are stable. He was afebrile this morningChest is clear to auscultation. Heart is regular rate and rhythm. Abdomen soft, bowel sounds positive. He has no calf tenderness or edema is noted. He has large amount of swelling left facial and frontal area. He also continues to have disconjugate gaze. In summary, Mr. Scott is starting his first full day on the rehabilitation service after craniopharyngioma resection. He will have full evaluation by PT, OT, speech, and medical psychology. He will continue hydrocortisone orally for treatment of his pituitary insufficiency. He continues risperidonetwice a day as necessary for any agitation. He will continue gabapentin for seizure prophylaxis andpain. He continues erythromycin eye drops. He continues venlafaxine for his history of depression. 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 HISTORY OF PRESENT ILLNESS Mr. Scott is a 45-year-old gentleman with a nonsignificant past medical history though a positive psychiatric history. Symptoms started about nine months ago where he developed depression with multiple social stressors including the of his sister from metastatic breast CA. He had also had a fall about that time where he developed chronic pain and became addicted to opioids. He had been in and out of drug therapy for a period of time. He had increasing forgetfulness and impulsiveness at work and was finally admitted to the [facility] for detox after increasingly abnormal behavior. He was discharged from the [facility] due to his behavioral issues. 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 He underwent resection of this on September 06, 2006. Postoperatively, he has generally done well medically with the exception of hyponatremia that improved with hypertonic saline. He was also transitioned todaily hydrocortisone therapy for treatment of pituitary dysfunction. His thyroid function was monitored and remained stable. A postop MRI revealed some punctate areas in the bithalamic and upper midbrain region related maybe to microvascular injury. Hecontinued to be ataxic and unsteady as well as having continued cognitive and linguistic deficits of attention, visual perception, org anization, orientation, memory and problem solving. He was evaluated by therapies and made some initial early progress but was thought to be appropriate for acute level inpatient rehabilitation services. He therefore transitioned to [facility] for neuro rehab on September 13, 2006. PAST MEDICAL HISTORY Past medical history is positive for the above-mentioned psychiatric issues, chronic back pain and osteoarthritis. ALLERGIES He has no known drug allergies. MEDICATIONS ON ADMISSION 1. Vicodin 5/500 one to two q. 4-6 p.r.n. 2. Erythromycin ophthalmic ointment four times daily to both eyes. 3. Heparin 5000 units twice daily. 4. Tylenol 325 one to two q. 4 p.r.n. 5. Effexor XR 75 mg daily. 6. Risperidone 1 mg tablets twice daily. 7. Nicotine 21 mg per 24 hours patch daily. 8. Neurontin 600 mg twice daily. 9. Nexium 40 mg once daily. 10. Colace 100 mg twice daily. 11. Hydrocortisone 20 mg in the morning and 10 mg in the evening. SOCIAL HISTORY He lives with his and two sons. It is a ranch-style home with a couple of steps to enter. 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 He had been out of work prior to the surgery due to his chronic pain and narcotic issues. He has a positive narcotic abuse history as above. 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 REVIEW OF SYSTEMS Constitutional: He reports no significant pain currently. Eyes: He reports positive diplopia. Ears, nose, mouth, throat: Denies swallowing problems or sinus problems. Cardiovascular/respiratory: Both negative for any previous cardiac disease, pulmonary problems or current chest pain or shortness of breath. Gastrointestinal: He has been having bowel movements. Genitourinary: He has a Scanlon catheter in place. Musculoskeletal: History of arthritis. Skin: Denies any chronic problems. Neurologic: History as above. Psychiatric: History as above. Endocrine: New pituitary dysfunction. Hematologic: Denies any bleeding or clotting tendencies. Allergies: Denies. PHYSICAL EXAMINATION Generally, Mr. Scott appeared somewhat agitated and hypermotor active. HEENT exam revealed a large left craniotomy incision in the frontal area. Incision was intact. He had scleral erythema. He had adysconjugate gaze with adduction weakness apparent on the right and no significant upward or downward gaze. Face was otherwise symmetric. Palate elevated symmetrically and tongue protruded midline. Neck was supple. Chest was clear to auscultation bilaterally. Heart regular rate and rhythm. Abdomen soft, bowel sounds positive. No calf tenderness or edema was noted. Neurologically, he demonstrated no focal strength deficits with at least 4+/5 to 5/5 strength throughout. No sensory deficits were reported. Deep tendon reflexes were symmetric. No upper motor neuronsigns such as Hoffmanor Babinski were noted. Finger-nose testing revealed severe dysmetria on the right side greater than the left side but pronounced on both sides. He was unable to do serial sevens. He was oriented to person and year. He was unable to name location or date. He was unable to recall the current presidentname. He did recognize why he was in the hospital. He was unable to recall that he was at [facility] prior to being at [facility]. He thought he was somewhere near [place]. ASSESSMENT In summary, Mr. Scott is a 45-year-old gentleman with craniopharyngioma resection. He had preoperative mood and behavioral disturbances for several months prior to surgery and now presents with postoperative cognitive and linguistic deficits as well as significant dysmetria and ataxia associated with his tumor resection and dysconjugate gaze. Due to his complex endocrine issues postoperatively, a need for close wound monitoring, as well as continued agitated and impulsive behavior, he requires acute level rehabilitation services. He couldnot be adequately cared for in the subacute setting because he would not have daily physician monitoring for adjustments of medications and monitoring of his endocrine status. Furthermore, an acute level team approach to therapy services is required to maximize his functional recovery from a neurologic standpoint. RECOMMENDATIONS 1. Full evaluations by PT and OT services for mobility and self-care deficits and evaluation of visual, spacial and balance issues. 2. Speech and language pathology evaluation for cognitive and linguistic deficits. 3. Medical psychology evaluation for a thorough assessment of psychiatric history and current cognitive deficits. 4. Continue hydrocortisone for hormone replacement. 5. Follow up thyroid functions. 6. Continue Effexor and Risperidone for psychiatric history. May add other agents if agitation becomes problematic. 7. Continue Nexium for GI prophylaxis. 8. Continue Vicodin as needed for pain. 9. Continue erythromycin ointment to the eyes postoperatively. 10. Continue heparin subcu twice daily 5000 units for DVT prophylaxis. 11. Continue nicotine patch for smoking cessation. 12. Continue Neurontin 600 mg p.o. b.i.d. for mood stabilization and chronic pain management. 13, Dr. Marciano Segovia will be consulted to follow Mr. Scott along with us. We will need to clarify his followup for further treatments related to this tumor mass. There was some small retention of lesion noted on followup MRI scans. Signed by Jeff Camargo MD 09/14/2006 13:56 Jewel Trujillo MD Jeff Camargo MD - Jeff Camargo MD P - mt Job ID: [id number] Document ID: [id number] cc: Corey Cao MD - Jeff Camargo MD P - mt Job ID: [id number] Document ID: [id number] cc: Corey Cao MD documented in this encounter Plan of Treatment Not on file documented as of this encounter Procedures Procedure Name Priority Date/Time Associated Diagnosis Comments COMPLETE BLOOD COUNT Routine 09/14/2006 6:50 EDT BUN Routine 09/14/2006 6:50 EDT CREATININE Routine 09/14/2006 6:50 EDT ELECTROLYTES Routine 09/14/2006 6:50 EDT documented in this encounter Results * (ABNORMAL) ELECTROLYTES (09/14/2006 6:50 EDT) Sodium 135(L) 136 - 145 mEq/L [facility] Potassium 4.3 3.5 - 5.0 mEq/L [facility] Chloride 95(L) 96 - 110 mEq/L [facility] CO2 29 24 - 32 mEq/L [facility] Comment:Performed at [facility] [place] 09/14/2006 6:50 EDT 09/14/2006 7:10 EDT Artie Preston MD CHEMISTRY & BLOOD GAS O RDERABLES Final Result Performing Organization Address [facility] Co de Phone Number [facility] [address] [place] [address] * CREATININE (09/14/2006 6:50 EDT) Creatinine 0.76 0.7 - 1.5 mg/dl [facility] GFR, Calculated >60 ml/min/1.7 3m2 [facility] Comment:Performed at [facility] [place], [place] 09/14/2006 6:50 EDT 09/14/2006 7:10 EDT us Artie Preston MD CHEMISTRY & BLOOD GAS O RDERABLES Final Result Performing Organization Address [facility] Co de Phone Number [facility] [address] [place] [address] * (ABNORMAL) HEMAGRAM (09/14/2006 6:50 EDT) WBC 9.59 4.0 - 10.4 K/cmm [facility] RBC 3.61(L) 4.36 - 5.78 M/cmm [facility] Hemoglobin 12.1(L) 13.8 - 17.3 gm/dl [facility] HCT 34.5(L) 39.5 - 50.2 % [facility] MCV 95 81 - 95 fl [facility] MCH 33.6(H) 27.6 - 33.0 pg [facility] MCHC 35.3 32.8 - 36.4 gm/dl [facility] PLT 278 141 - 320 K/cmm [facility] RDW-CV 13.5 11.8 - 14.1 % [facility] 09/14/2006 6:50 EDT 09/14/2006 7:10 EDT us Artie Preston MD HEMATOLOGY & PF4 ORDERA BLES Final Result [facility] [address] [place] [address] * (ABNORMAL) BUN (09/14/2006 6:50 EDT) BUN 9(L) 10 - 26 mg/dl [facility] Comment:Performed at [facility] [place], [place] 09/14/2006 6:50 EDT 09/14/2006 7:10 EDT us Artie Preston MD CHEMISTRY & BLOOD GAS O RDERABLES Final Result [facility] [address] [place] [address] documented in this encounter Visit Diagnoses Not on filedocumented in this encounter Care Teams Study Abroad Coordinator Relationship Specialty Start Date End Date Jason Batres MD [address] [place] [phone] PCP - General 08/13/08 05/24/11 documented as of this encounter
--- OUTSIDE RECORDS SUMMARY | 2024-02-28 16:58 | XMS_ITS | Encounter Summary ---
Author Organization [facility] Address [address] [place] [address] Care Team Providers Care Supervisor Product Inspection Name Role Phone Jason Batres MD Primary Care Provi margarita Encounter Details Date Type Department Care Team (Late st Contact Info) Description 02/23/2006 Office Visit [facility] [address] [place] [address] Amanuel Simpson PA-C [address] [place] [phone] Social History Tobacco Use Types Packs/Day Years Used Date Smoking Tobacco: Never Assessed Sex and Gender Information Value Date Recorded Sex Assigned at Male 06/12/2023 11:45 EDT Legal Sex Male 18:05 EST Gender Identity Male 10/03/2019 21:06 EDT Sexual Orientation Straight 06/12/2023 11 :45 EDT documented as of this encounter Progress Notes * Amanuel Mcneal PA - 04/29/2009 0008 EST Department - Physician Summary Registration Date/Time: 02/23/2006 19:07 Time Seen; upon arrival. Arrived- By private vehicle. Historian- patient. HISTORY OF PRESENT ILLNESS Chief Complaint: BACK INJURY. Onset- this am. and it is still present. The quality is noted to be aching and pain. It is described as being severe and in the area of the left SI joint, left gluteus, lower lumbar spine and sacrum. It is described as radiating to the left buttocks and left thigh. Associated symptoms - No bladder dysfunction, bowel dysfunction, sensory loss or motor loss. Patient notes an injury. Mechanism of injury (fell onto buttocks after slipping on a deck. ). Occurred at home. Patient denies injury to the head or neck. No other injury. The patient has had similar symptoms previously. Not recently seen/assessed. REVIEW OF SYSTEMS No fever, chills, difficulty with urination, urinary frequency or headache. No sore throat, cough, difficulty breathing, abdominal pain or nausea. No vomiting. PAST HISTORY See nurses notes. Has had back injury. Medications: The patient's medications have been reviewed. Allergies: The patient's allergies have been reviewed. SOCIAL HISTORY Nonsmoker. No alcohol use. ADDITIONAL NOTES The nursing notes have been reviewed. PHYSICAL EXAM Appearance: Alert. Anxious. Appears to be in pain. Patient in moderatedistress. Vital Signs: Have been reviewed. Eyes: Pupils equal, round and reactive to light. Neck: Normal inspection. Neck nontender. Painless ROM. No vertebral tenderness. CVS: Heart sounds normal. Respiratory: No respiratory distress. Back: Muscle spasm of the back. Soft tissue tenderness in the left mid and lower lumbar area. Mildly limited ROM in the back- in the lumbar spine: decreased flexion, right lateral bending and left lateral bending. Normal inspection. No vertebral point tenderness or CVA tenderness. Skin: Normal skin color. Skin warm and dry. Neuro: Oriented X 3. No motor deficit. No sensory deficit. Straight leg raising: negative on the right and negative on the left. Reflexes normal. able to tip toe and heel walk. PROGRESS AND PROCEDURES E.D. Course: Patient is stable. . Patient counseled in person regarding the patient's stable condition and need for follow-up. ED Attending on duty and available for supervision: Lizzeth Rouse. Disposition: Condition: good. Discharged home in good condition (19:56). Discharged home in good condition (19:48). CLINICAL IMPRESSION Back pain. Lumbar strain. INSTRUCTIONS No driving or operating machinery while taking sedating medication. No lifting greater than 10 lbs,no bending or stooping or no prolonged sitting until well. No strenuous activity. Rest. Do not workfor two days. warm showers, compresses to back. Warnings: GENERAL WARNINGS: Return to the Emergency Department or contact your physician immediately if your condition worsens or changes unexpectedly, if not improving as expected, or if other problems arise.SPECIFICALLY, return if you develop weakness, numbness or incontinence of feces (loss of bowel control) or urine (loss of bladder control). Prescription Medications: Percocet 5 mg/325 mg: take 1-2 tablets orally every 6 hours as needed for pain. Dispense twenty (20). No refill. Generic substitute OK. Valium 5 mg tablets: take 1 tablet orally every 4 hours as needed formuscle spasm. Dispense fifteen(15). No refill. Generic substitute OK. OTC Medications: Motrin IB 200 mg (available over the counter): take 3 orally every 6 hours as needed for pain. Follow-up: Follow up with Doctor Dr. Pal in one week if not well. Understanding of the discharge instructions verbalized by patient. (Electronically signed by Mykel Garcia 02/23/2006 19:57) Department - Nursing Summary Registration Date/Time: 02/23/2006 19:07 TRIAGE Initial Assessment Triage time 19:08. Acuity: LEVEL 5. BP: 119 / 80 sitting. HR: 75 regular. RR: 16 regular. Temp: 36.6 tympanic. --1910 Lupe Espinoza R.N.. Medications None. --1910 Lupe Espinoza R.N.. Allergies No known drug allergies. --1910 Lupe Espinoza R.N.. History Chief Complaint: BACK PAIN. Pain level now: 8/10. No numbness, weakness, tingling, trouble walking or fever. PAST HX: (Herniated discs in past. ). SOCIAL HX: Nonsmoker. No alcohol use. Arrived by private vehicle. 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 Pt took ibuporphen 800 mg last at 5PM wo help. Upright posture,grunts while tryign to get down to sitting posit. Pian is in lower back, notingling to feet. Pain radiates down buttocks. ). --1910 Lupe Espinoza R.N.. NURSING PROGRESS NOTES Progress Call light placed in reach. Side rails up x 1. Bed placed in lowest position. Brakes of bed on. --1921 Jennifer Hightower DIAZEPAM 5 mg starter pack # [id number] PO. PERCOCET 5 mg/325 mg starter pack # [id number] PO. . --1953 Debby Sotomayor R.N. (Discharge instructions reviewed with pt. No questions. Pt ambulating slowly but independantly. Ready for d/c home ). --1957 Debby Sotomayor R.N.. DISPOSITION / DISCHARGE Patient reports pain level on departure as 8/10. Condition at departure: unchanged. No learning barriers present. Discharge instructions reviewed with the patient. Reviewed medication side effects, precautions and dosing (Percocet and Valium ). Work note given (do not work for 2 days ). Patient verbalized understanding. Written instructions provided in Vietnamese. (Pt to follow up with PCP as needed. Return to ED for any complications). The patient was discharged home. The patient left the Emergency Department ambulatory and via private vehicle. Patient driving. --2006 Debby Sotomayor R.N.. Jennifer Nowak R.N., R.N. Locked/Released at 02/26/2006 8:38 by Lupe Salvador R.N. documented in this encounter Plan of Treatment Not on file documented as of this encounter Visit Diagnoses Not on filedocumented in this encounter Care Teams Supervisor Product Inspection Relationship Specialty Start Date End Date Jason Batres MD [address] [place] [phone] PCP - General 08/13/08 05/24/11 documented as of this encounter
--- OUTSIDE RECORDS SUMMARY | 2024-02-28 16:58 | XMS_ITS | Encounter Summary ---
Author Organization [facility] Address [address] [place] [address] Care Team Providers Care Cerner Analyst Name Role Phone Unavailable Primary Care Provider Unavailabl e Encounter Details Date Type Department Care Team (Latest Contact Info) Description 02/23/2006 19:07 EST Hospital Encounter [facility] Emergency Department - [address] [id number] Emergency, Default, MD Discharge Disposition: Home or [...]
--- OUTSIDE RECORDS SUMMARY | 2024-02-28 16:58 | XMS_ITS | Encounter Summary ---
Author Organization [facility] Address [address] [place] [address] Care Team Providers Care Lead Ramp Service Man Name Role Phone Jason Batres MD Primary Care Provi margarita Encounter Details Date Type Department Care Team (Late st Contact Info) Description 03/07/2006 Office Visit [facility] conversion [address] [place] [address] Contreras Rouse MD Social History Tobacco Use Types Packs/Day Years Used Date Smoking Tobacco: Never Assessed Sex and Gender Information Value Date Recorded Sex Assigned at Male 06/12/2023 11:45 EDT Legal Sex Male 18:05 EST Gender Identity Male 10/03/2019 21:06 EDT Sexual Orientation Straight 06/12/2023 11 :45 EDT documented as of this encounter Progress Notes * Contreras Rouse MD - 04/29/2009 0154 EST Department - Physician Summary Registration Date/Time: 03/07/2006 11:53 Arrived- By private vehicle. Historian- patient. HISTORY OF PRESENT ILLNESS Chief Complaint: BACK PAIN. 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 It was gradual in onset and has been waxing/waning. The quality is noted to be aching and similar to prior episodes. It is described as being moderate in degree and in the area of the lower lumbar spine. No radiation. Associated symptoms - No bladder dysfunction, bowel dysfunction, sensory loss or motor loss. Patient notes the possibility of an injury (went snowmobilingjust after back began feeling better from last visit to ED). The patient has had similar symptoms previously. The patient was seen recently at this facility. REVIEW OF SYSTEMS No fever, chills, abdominal pain, nausea or vomiting. PAST HISTORY Has had back injury. Medications: The patient's medications have been reviewed. Allergies: The patient's allergies have been reviewed. ADDITIONAL NOTES The nursing notes have been reviewed. PHYSICAL EXAM Appearance: Alert. Patient in mild distress. Distress appears due to pain. Vital Signs: Have been reviewed. HEENT: Normal external inspection. CVS: Heart sounds normal. Respiratory: No respiratory distress. Breath sounds normal. Abdomen: Abdomen soft and nontender. Back: Mild soft tissue tenderness in the right lower, left lower and lower central lumbar area. Limited ROM in the back. Normal inspection. Skin: Normal skin color.Skin warm and dry. No rash. Neuro: Oriented X 3. No motor deficit. No sensory deficit. Reflex exam: right patellar 2+, left patellar 2+, right Achilles 2+ and left Achilles 2+. PROGRESS AND PROCEDURES Disposition: Condition: stable. Discharged home. CLINICAL IMPRESSION Back pain. INSTRUCTIONS No strenuous activity. Rest. Call your doctor to arrange physical therapy.. Warnings: GENERAL WARNINGS: Return to the Emergency Department or contact your physician immediately if your condition worsens or changes unexpectedly, if not improving as expected, or if other problems arise. Prescription Medications: Percocet 5 mg/325 mg: take 1 tablet orally every 6 hours as needed for pain. Dispense fifteen (15).No refills. Generic substitute OK. Follow-up: Follow up with your doctor in seven days if not better. (Electronically signed by Contreras Rouse M.D. 03/08/2006 22:36) Department - Nursing Summary Registration Date/Time: 03/07/2006 11:53 TRIAGE Initial Assessment Triage time 11:54 Mar 07 2006. Acuity: LEVEL 4. BP: 125 / 80. HR: 79. RR: 14. Temp: 36.8 C (tympanic). Alert. No acute distress. --1157 Isaac Juarez R.N.. Medications None. --1157 Isaac Juarez R.N.. Allergies No known drug allergies. --1157 Isaac Juarez R.N.. History Chief Complaint: BACK PAIN. Onset (WORSENING OVER LAST 4 DAYS p SNOWMOBILING). Pain level now: 8/10. No history of recent trauma. 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 PAST HX: Arthritis. Chronic back pain secondary to disc disease. Has had job related back injury. No infectious disease exposure. No history of previous surgery. SOCIAL HX: Occasional alcohol use. Nonsmoker. No drug use. Functional assessment: no impairments noted. No report of abuse. Historian: patient. Arrived by private vehicle and walking fromwork. --1157 Isaac Juarez R.N.. PHYSICAL ASSESSMENT Ambulatory to room. Alert. Appears in no acute distress. Respirations not labored. --1151 Isaac Juarez R.N. Appears in pain. --1152 Isaac Juarez R.N.. NURSING PROGRESS NOTES Progress Patient gowned. Head of bed elevated. Call light placed in reach. Side rails up x 1. Bed placed in lowest position. Brakes of bed on. --1202 Angelica Esteban, L.N.A.. DISPOSITION / DISCHARGE Patient reports pain level on departure as 6/10. No learning barriers present. Discharge instructions reviewed with the patient. Patient verbalized understanding. Written instructions provided in Thai. The patient was discharged home. The patient left the Emergency Department ambulatory and via p rivate vehicle. Patient has no belongings. --1249 Monik Vanegas R.N.. Isaac Esteban LJazielN.AJaziel Vanegas R.N. Locked/Released at 03/07/2006 12:49 by Monik Vanegas R.N. documented in this encounter Plan of Treatment Not on file documented as of this encounter Visit Diagnoses Not on filedocumented in this encounter Care Teams Lead Ramp Service Man Relationship Specialty Start Date End Date Jason Batres MD [address] [place] [address] PCP - General 08/13/08 05/24/11 documented as of this encounter
--- OUTSIDE RECORDS SUMMARY | 2024-02-28 16:58 | XMS_ITS | Encounter Summary ---
Author Organization [facility] Address [address] [place] [address] Care Team Providers Care Countersinker Name Role Phone Jason Batres MD Primary Care Provi margarita Encounter Details Date Type Department Care Team (Late st Contact Info) Description 09/16/2006 Before PRISM Converted Visit (Maple) [facility] - [facility] conversion [address] [place] [address] Franco Rodríguez MD [address] [place] [phone] Social History Tobacco Use Types Packs/Day Years [...] 0325 EST INPATIENT PROGRESS NOTE Service Date: 09/16/2006 PT LOC: F002 Jeff Scott is a 45-year-old gentleman with brain tumor. He denies any nausea today. Vital signs are stable. He is afebrile. Temperature was 35.8. Continue with Zofran p.r.n. for nausea. Scanlon catheter is out check voiding pattern Signed by Franco Rodríguez MD 09/17/2006 14:09 AThgurinder Rodríguez MDThgurinder Rodríguez MD Franco Rodríguez MD D: - Franco Rodríguez MD P - kmm Job ID: Document ID: [id number] cc: D: - Franco Rodríguez MD P - kmm Job ID: Document ID: [id number] cc: documented in this encounter Plan of Treatment Not on file documented as of this encounter Visit Diagnoses Not on filedocumented in this encounter Care Teams Countersinker Relationship Specialty Start Date End Date Jason Batres MD [address] [place] [phone] PCP - General 08/13/08 05/24/11 documented as of this encounter
--- OUTSIDE RECORDS SUMMARY | 2024-02-28 16:58 | XMS_ITS | Encounter Summary ---
Author Organization [facility] Address [address] [place] [address] Care Team Providers Care General Repairer Name Role Phone Unavailable Primary Care Provider Unavailabl e Encounter Details Date Type Department Care Team (Latest Contact Info) Description 06/25/2006 15:48 EDT Hospital Encounter [facility] - Other [address] [place] [address] Chente Gomes MD [address] [place] [phone] Discharge Disposition: Home or Self Care Social [...] Procedure Name Priority Date/Time Associated Diagnosis Comments CT HEAD WO CONTRAST 09/19/2006 1 2:02 EDT COMPLETE BLOOD COUNT AND DIFFERENTIAL Routine 06/25/2006 16:50 EDT TSH Routine 06/25/2006 16:50 EDT documented in this encounter Results * CT HEAD WO CONTRAST (09/19/2006 12:02 EDT) Anatomical Region Laterality Modality Other 09/19/2006 12:0 2 EDT Narrative 09/02/2008 14:28 EDT S/P CRANIOPHARYNGEAL RESECTION DECREASE RESPONDSIVENESS R/O BLEED CT HEAD W/O CONTRAST ??September 19, 2006 12:02:38 PM Impression: 1. Status post prior left frontal and temporal craniotomy for resection of meningioma. 2. Pneumocephalus. Clinical History: S/P CRANIOPHARYNGEAL RESECTION DECREASE RESPONSIVENESS R/O BLEED Technique: Unenhanced CT of the brain was done with axial sections from the skullbase to the vertex. Comparison: None. Findings: Craniotomy changes are present in the left temporal and frontal bones. There is no intracranial bleed. The ventricles are normal. The sulci are not enlarged. There is no midline shift. Small amount of air is seen intracranially secondary to the most recent craniotomy. Bone window views show clear paranasal sinuses. Procedure Note Azucena Joseph MD - 09/02/2008 S/P CRANIOPHARYNGEAL RESECTION DECREASE RESPONDSIVENESS R/O BLEED CT HEAD W/O CONTRAST September 19, 2006 12:02:38 PM Impression: 1. Status post prior left frontal and temporal craniotomy for resection of meningioma. 2. Pneumocephalus. Clinical History: S/P CRANIOPHARYNGEAL RESECTION DECREASE RESPONSIVENESS R/O BLEED Technique: Unenhanced CT of the brain was done with axial sections from the skullbase to the vertex. Comparison: None. Findings: Craniotomy changes are present in the left temporal and frontal bones. There is no intracranial bleed. The ventricles are normal. The sulci are not enlarged. There is no midline shift. Small amount of air is seen intracranially secondary to the most recent craniotomy. Bone window views show clear paranasal sinuses. us Artie Perston MD IMG CT ORDERABLES Final Result * TSH (06/25/2006 16:50 EDT) TSH 2.16 0.35 - 5.00 uIU/mL [facility] 06/25/2006 16:5 0 EDT 06/25/2006 19:27 EDT Chente Gomes MD CHEMISTRY & BLOOD GAS ORDERABLES Final Result [facility] [address] [place] [address] * (ABNORMAL) HEMAGRAM AND DIFFERENTIAL (06/25/2006 16:50 EDT) WBC 5.65 4.0 - 10.4 K/cmm [facility] RBC 4.31(L) 4.36 - 5.78 M/cmm [facility] Hemoglobin 14.4 13.8 - 17.3 gm/dl [facility] HCT 41.2 39.5 - 50.2 % [facility] MCV 96(H) 81 - 95 fl [facility] MCH 33.3(H) 27.6 - 33.0 pg [facility] MCHC 34.8 32.8 - 36.4 gm/dl [facility] PLT 185 141 - 320 K/cmm [facility] RDW-CV 13.4 11.8 - 14.1 % [facility] % Neutrophils 57.1 45.5 - 79.7 % [facility] % Lymphocytes 34.2 15.0 - 46.8 % [facility] % Monocytes 6.8 1.8 - 12.0 % [facility] % Eosinophils 1.4 0.6 - 6.9 % [facility] % Basophils 0.5 0.2 - 1.4 % [facility] ABS Neutrophils 3.23 2.20 - 8.85 K/cmm [facility] ABS Lymphs 1.93 1.09 - 3.30 K/cmm [facility] ABS Monocytes 0.38 0.1 - 0.8 K/cmm [facility] ABS Eosinophils 0.08 0.03 - 0.61 K/cmm [facility] ABS Basophils 0.03 0.01 - 0.11 K/cmm [facility] Type of Diff: Automated [facility] 06/25/2006 16:5 0 EDT 06/25/2006 19:27 EDT us Chente Gomes MD PACKAGES & DNA PROBE O RDERABLES Final Result [facility] [address] [place] [address] documented in this encounter Visit Diagnoses Not on filedocumented in this encounter
--- OUTSIDE RECORDS SUMMARY | 2024-02-28 16:58 | XMS_ITS | Encounter Summary ---
Author Organization [facility] Address [address] [place] [address] Care Team Providers Care Local Bulk Driver Name Role Phone Unavailable Primary Care Provider Unavailabl e Encounter Details Date Type Department Care Team (Latest Contact Info) Description 04/06/2006 9:34 EST - 04/06/2006 11:59 EST Hospital Encounter [address] [address] Haydee Gillis MD [address] [place] [address] [phone] Discharge Disposition: Auto Discharge Social History Tobacco [...] Procedure Name Priority Date/Time Associated Diagnosis Comments L SPINE 2-3 VIEWS 04/06/2006 12: 07 EST documented in this encounter Results * L SPINE 2-3 VIEWS (04/06/2006 12:07 EST) Anatomical Region Laterality Modality Other 04/06/2006 12:0 7 EST Narrative 09/12/2008 3:53 EDT fall 1 week ago landing on right buttocks, low back, increase pain today tender L3-L5 r/o compression fracture [facility] [phone] LUMBOSACRAL SPINE 04/24/06 AP and lateral views of the lumbosacral spine show slight loss of height of both the T11 and T12 vertebral bodies at the top of the film. There is also some degenerative change at the T11-T12 level with calcification anteriorly in the disc space. These compression fractures are minimal and are likely old, given the other associated degenerative findings, although the precise age of the fractures is not possible to determine on the basis of the films. ??I have no prior films available for comparison. ??Otherwise the lumbar spine is within normal limits. IMPRESSION: Probable old compression fractures T11 and T12. D: ??04/06/06 T: ??04/09/06 /irena Procedure Note Gurwinder Thomas MD - 09/12/2008 fall 1 week ago landing on right buttocks, low back, increase pain today tender L3-L5 r/o compression fracture [facility] [phone] LUMBOSACRAL SPINE 04/24/06 AP and lateral views of the lumbosacral spine show slight loss of height of both the T11 and T12 vertebral bodies at the top of the film. There is also some degenerative change at the T11-T12 level with calcification anteriorly in the disc space. These compression fractures are minimal and are likely old, given the other associated degenerative findings, although the precise age of the fractures is not possible to determine on the basis of the films. I have no prior films available for comparison. Otherwise the lumbar spine is within normal limits. IMPRESSION: Probable old compression fractures T11 and T12. /irena Haydee Gillis MD IMG DIAGNOSTIC IMAGING ORDERABL ES Final Result documented in this encounter Visit Diagnoses Not on filedocumented in this encounter
--- OUTSIDE RECORDS SUMMARY | 2024-02-28 16:58 | XMS_ITS | Encounter Summary ---
Author Organization [facility] Address [address] [place] [address] Care Team Providers Care Rn Or Lpn Name Role Phone Jason Batres MD Primary Care Provi margarita Encounter Details Date Type Department Care Team (Late st Contact Info) Description 08/02/2006 Results Only [facility] conversion [address] [place] [address] Chente Gomes MD [address] [place] [address] [phone] Social History Tobacco Use Types Packs/Day Years [...] Procedure Name Priority Date/Time Associated Diagnosis Comments DRUG SCREEN 6 Routine 08/02/2006 15:45 EDT documented in this encounter Results * DRUG SCREEN 6 (08/02/2006 15:45 EDT) Amphetamine Screen, Urine Negative drug screen reporting Suitable for medical purposes only. Will not detect all drugs within class. Cutoff = 1000 ng/ml [facility] Barbiturate Screen, Urine Negative drug screen reporting Suitable for medical purposes only. Will not detect all drugs within class. Cutoff = 300 ng/ml [facility] Benzodiazepine Screen, Urine Negative drug screen reporting Suitable for medical purposes only. Will not detect all drugs within class. Cutoff = 300 ng/ml [facility] Cannabinoid Scrn, Ur Negative drug screen reporting Suitable for medical purposes only. Will not detect all drugs within class. Cutoff = 50 ng/ml [facility] Cocaine Metabolites, Ur Negative drug screen reporting Suitable for medical purposes only. Will not detect all drugs within class. Cutoff = 300 ng/ml [facility] Opiate Scrn, Ur Positive drug screen reporting Suitable for medical purposes only. Will not detect all drugs within class. Cutoff = 300 ng/ml Does not detect oxycodone, oxycontin or methadone. [facility] 08/02/2006 15:4 5 EDT 08/02/2006 19:16 EDT Chente Gomes MD URINALYSIS ORDERABLES Final Result Performing Organization Address City/State/[facility] Co de Phone Number [facility] [address] [place] [address] documented in this encounter Visit Diagnoses Not on filedocumented in this encounter Care Teams Rn Or Lpn Relationship Specialty Start Date End Date Jason Batres MD [address] [place] [phone] PCP - General 08/13/08 05/24/11 documented as of this encounter
--- OUTSIDE RECORDS SUMMARY | 2024-02-28 16:58 | XMS_ITS | Encounter Summary ---
Author Organization [facility] Address [address] [place] [address] Care Team Providers Care Photoengraver Name Role Phone Jason Batres MD Primary Care Provi margarita Encounter Details Date Type Department Care Team (Late st Contact Info) Description 09/17/2006 Before PRISM Converted Visit (Maple) [facility] - Maple conversion [address] [place] [address] Jeff Camargo MD [address] [place] [address] [phone] Social History Tobacco Use Types Packs/Day Years Used Date Smoking Tobacco: Never Assessed Sex and Gender Information Value Date Recorded Sex Assigned at Male 06/12/2023 11:45 EDT Legal Sex Male 18:05 EST Gender Identity Male 10/03/2019 21:06 EDT Sexual Orientation Straight 06/12/2023 11 :45 EDT documented as of this encounter Progress Notes * Jeff Camargo MD - 01/09/2009 0901 EST INPATIENT PROGRESS NOTE Service Date: 09/17/2006 PT LOC: F002 Mr. Scott is a 45-year-old gentleman with a history of brain tumor. He has a craniopharyngioma resection. I had the opportunity to review radiographic studies of his tumor preoperatively. He has had some urinary retention, up to 1000 mL, without the ability to void. His urine is very cloudy and we are therefore sending it off for UA/C+S. No other problems were reported. He has been nonagitated. He does continue to have one-to-one supervision for poor insight into safety awareness issues. Vitals are stable, he is afebrile. Chest is clear. Heart regular. Abdomen soft. No extremity edema or calf tenderness is noted. He continues to have significant left-sided frontal and facial swelling. In summary, Mr. Scott is a 45-year-old gentleman status post craniopharyngioma resection. He continues to have some cognitive impairment and issues with safety with mobility and self-care. He will continue acute level rehabilitation services. We will follow up UA/C+S tomorrow and consider starting him on antibiotics. He will continue current intermittent voiding and catheterization p.r.n. schedule. Signed by Jeff Camargo MD 09/21/2006 15:50 Jewel Trujillo MD Jeff Camargo MD - Kay Camargo MD P - lr Job ID: [id number] Document ID: [id number] cc: - Jeff Camargo MD P - lr Job ID: [id number] Document ID: [id number] cc: documented in this encounter Plan of Treatment Not on file documented as of this encounter Procedures Procedure Name Priority Date/Time Associated Diagnosis Comments URINALYSIS WITH MICROSCOPIC IF POSITIVE Routine 09/17/2006 14:00 EDT UA REFLEX Routine 09/17/2006 14:00 EDT URINE CULTURE IF POSITIVE Routine 09/17/2006 14:00 EDT documented in this encounter Results * UA REFLEX (09/17/2006 14:00 EDT) UA Billing Microscopic not indicated. Performed at [facility], [place], [place] [facility] 09/17/2006 14:0 0 EDT 09/17/2006 14:28 EDT Artie Preston MD URINALYSIS ORDERABLES F inal Result Performing Organization Address [facility] Co de Phone Number [facility] [address] [place] [address] * URINALYSIS (09/17/2006 14:00 EDT) Color, UA Yellow [facility] Clarity, UA Cloudy [facility] Glucose, UA Norm NORM [facility] Bilirubin, UA Neg NEG [facility] Ketones, UA Neg NEG [facility] Specific [place], Urine 1.010 1.005 - 1.02 [facility] Blood, UA Neg NEG [facility] pH, UA 7.5 5.0 - 9.0 [facility] Protein, UA Neg NEG [facility] Urobilinogen, UA Norm NORM mg/dL [facility] Nitrite, UA Neg NEG [facility] Leuk Esterase Neg NEG [facility] Comment:Performed at [facility], [place], [place] 09/17/2006 14:0 0 EDT 09/17/2006 14:28 EDT Artie Preston MD URINALYSIS ORDERABLES F inal Result Performing Organization Address [facility] Co de Phone Number [facility] [address] [place] [address] * CULTURE IF UA POSITIVE (09/17/2006 14:00 EDT) Culture if Indicated Culture not indicated by urinalysis results. [facility] 09/17/2006 14:0 0 EDT 09/17/2006 14:28 EDT Artie Preston MD MICROBIOLOGY - GENERAL ORDERABLES Final Result Performing Organization Address City/[facility]/ZIP Co de Phone Number [facility] [address] [place] [address] documented in this encounter Visit Diagnoses Not on filedocumented in this encounter Care Teams Photoengraver Relationship Specialty Start Date End Date Jason Batres MD [address] [place] [phone] PCP - General 08/13/08 05/24/11 documented as of this encounter
--- OUTSIDE RECORDS SUMMARY | 2024-02-28 16:58 | XMS_ITS | Encounter Summary ---
Author Organization [facility] Address [address] [place] [address] Care Team Providers Care Senior Director Name Role Phone Unavailable Primary Care Provider Unavailabl e Encounter Details Date Type Department Care Team (Late st Contact Info) Description 01/04/2006 12:00 [facility] Hospital Encounter [facility] - [address] [address] Dirk Holcomb Social History Tobacco Use Types Packs/Day Years [...]
== END 2024-02-28 16:36 | disposition home or self-care (01) ==
LOC: LBN 16:35
PROVIDERS: PCP Family Medicine; Visit Provider Family Medicine
DX: E11.621 Type 2 diabetes mellitus with foot ulcer (principal); L97.509 Non-pressure chronic ulcer of other part of unspecified foot with unspecified severity
CPT/HCPCS: 87077; 87070; 87186; 87205

== ENCOUNTER 2024-03-19 02:08 | Outpatient (CLI) | payer MEDICARE, BC, SELFPAY ==
--- NOTE | 2024-03-19 07:15 | DI.RAD_ITS ---
Exam(s) XR FOOT LT COMPLETE EXAM: XR FOOT LT COMPLETE CLINICAL HISTORY: assess for osteomyelitis,diabetic foot ulcer,l97.509,e11.42. TECHNIQUE: 2D digital imaging was performed. Three views. COMPARISON: No exams were available for comparison FINDINGS: BONES: No acute fracture is present. No bony destructive lesion is seen. Bones appear osteopenic. Small enthesophyte at Achilles insertion. JOINTS: No dislocation present. Mild degenerative changes. SOFT TISSUE: Soft tissue swelling around the 5th toe. Vascular calcifications. IMPRESSION: No plain film evidence osteomyelitis. DATA REPOSITORY: RADIATION DOSE DELIVERED:
== END 2024-03-19 02:28 ==
LOC: DI 02:08
PROVIDERS: PCP Family Medicine; Visit Provider Podiatrist
DX: E11.621 Type 2 diabetes mellitus with foot ulcer (principal); Z79.4 Long term (current) use of insulin
CPT/HCPCS: 11042; 73630

== ENCOUNTER → 2024-04-02 09:57 | Outpatient (BNVA) | payer MEDICARE, BC, SELFPAY | PROVIDERS: PCP Family Medicine; Referring Provider Family Medicine; Visit Provider Physical Therapy Assistant | DX: I73.9 Peripheral vascular disease, unspecified (principal) | CPT/HCPCS: 93922 ==

== ENCOUNTER → 2024-04-09 08:22 | Outpatient (BNVA) | payer MEDICARE, BC, SELFPAY | PROVIDERS: PCP Family Medicine; Referring Provider Family Medicine; Visit Provider Podiatrist | DX: Z51.89 Encounter for other specified aftercare (principal); E11.42 Type 2 diabetes mellitus with diabetic polyneuropathy; Z79.4 Long term (current) use of insulin; R41.3 Other amnesia; E11.621 Type 2 diabetes mellitus with foot ulcer; L97.522 Non-pressure chronic ulcer of other part of left foot with fat layer exposed; I73.89 Other specified peripheral vascular diseases; I70.203 Unspecified atherosclerosis of native arteries of extremities, bilateral legs; I87.2 Venous insufficiency (chronic) (peripheral); R60.0 Localized edema; E11.65 Type 2 diabetes mellitus with hyperglycemia; D64.9 Anemia, unspecified | CPT/HCPCS: 11042 ==

== ENCOUNTER → 2024-05-21 11:19 | Outpatient (BNVA) | payer MEDICARE, BC, SELFPAY | PROVIDERS: PCP Family Medicine; Referring Provider Family Medicine; Visit Provider Podiatrist | DX: L97.522 Non-pressure chronic ulcer of other part of left foot with fat layer exposed (principal); E11.42 Type 2 diabetes mellitus with diabetic polyneuropathy; Z79.4 Long term (current) use of insulin; E11.621 Type 2 diabetes mellitus with foot ulcer; I73.89 Other specified peripheral vascular diseases; I70.209 Unspecified atherosclerosis of native arteries of extremities, unspecified extremity; I87.2 Venous insufficiency (chronic) (peripheral); R41.3 Other amnesia; R60.0 Localized edema; E11.65 Type 2 diabetes mellitus with hyperglycemia; D64.9 Anemia, unspecified; Z51.89 Encounter for other specified aftercare | CPT/HCPCS: 11042; 73630 ==

== ENCOUNTER 2024-05-21 12:35 | Outpatient (CLI) | payer MEDICARE, BC, SELFPAY ==
--- NOTE | 2024-05-21 12:15 | DI.RAD_ITS ---
Exam(s) XR FOOT LT COMPLETE EXAM: XR FOOT LT COMPLETE CLINICAL HISTORY: Fifth met head osteomyelitis? L97.529. TECHNIQUE: 2D digital imaging was performed. Three views. COMPARISON: No exams were available for comparison FINDINGS: BONES: No acute fracture is present. No bony destructive lesion is seen. Heel spurs. JOINTS: No dislocation present. Degenerative changes at tarsal metatarsal joints. SOFT TISSUE: Swelling at 5th MTP joint. Overlying gauze. IMPRESSION: No plain film evidence of osteomyelitis. DATA REPOSITORY: RADIATION DOSE DELIVERED:
== END 2024-05-21 12:55 ==
LOC: DI 12:35
PROVIDERS: PCP Family Medicine; Visit Provider Podiatrist
DX: L97.529 Non-pressure chronic ulcer of other part of left foot with unspecified severity (principal)
CPT/HCPCS: 73630

== ENCOUNTER 2024-06-17 15:06 | Outpatient (CLI) | payer MEDICARE, BC, SELFPAY ==
--- NOTE | 2024-06-17 12:00 | DI.US_ITS ---
Exam(s) US LOWER EXTREMITY VENOUS LT EXAM: US LOWER EXTREMITY VENOUS LT CLINICAL HISTORY: Possible new DVT,lt leg swelling, m79.89. TECHNIQUE: Lower extremity venous ultrasound performed using grayscale, color-flow, and spectral Do ppler analysis. COMPARISON: CR XR FOOT LT COMPLETE from 03/19/2024 CR XR FOOT LT COMPLETE from 05/21/2024 FINDINGS: The common femoral, profundal femoral and greater saphenous veins demonstrate normal compressibility, augmentation, and color Doppler. There is thrombus visible from the mid femoral vein through the posterior tibial veins. The poplitea l vein is not well seen. In the popliteal region, in the posterior calf, there is significant soft t issue edema with skin thickening and overlying redness. IMPRESSION: Deep venous thrombosis from the mid femoral vein through the calf veins. Significant area of inflammation in the upper posterior calf region. DATA REPOSITORY:
== END 2024-06-17 15:26 ==
PROVIDERS: PCP Family Medicine; Visit Provider Family Medicine
DX: M79.89 Other specified soft tissue disorders (principal)
CPT/HCPCS: 93971

== ENCOUNTER 2024-06-19 13:37 | Inpatient (IN) | payer MEDICARE, BC, SELFPAY ==
[2024-06-19] VITALS (39 sets, daily range): BP systolic 145–181; BP diastolic 61–132; PULSE 85–102; RESP 9–24; TEMP 37.6; O2SAT 90–97
--- NOTE | 2024-06-19 14:00 | DI.US_ITS ---
Exam(s) US LOWER EXTREMITY VENOUS LT EXAM: US LOWER EXTREMITY VENOUS LT CLINICAL HISTORY: cool to touch, eval for extention of clot TECHNIQUE: Grayscale, color, and doppler imaging of the deep venous system of the left lower extremi ty was performed. COMPARISON: US US LOWER EXTREMITY VENOUS LT from 06/17/2024 FINDINGS: Study is significantly limited the fact that patient was not able to tolerate much pressure There is again no evidence of DVT in the upper half of the common femoral vein. There is again noted thrombus in the mid femoral vein through the mid-lower thigh. There is no evidence of thrombus S the saphenous venous junction nor within the greater saphenous vei n. The popliteal vein was again not able to be interrogated apparently because of extreme pain. Images do reveal a mass in the popliteal fossa which is possibly hematoma or abscess. Doubtful for poplitea l artery aneurysm. The calf veins were also not able to be visualized due to edema and pain The ipsilateral saphenofemoral junction is patent. IMPRESSION: 1. Very limited study for reasons as above. However, there does appear to be intraluminal only part ially occlusive thrombus in the left femoral vein in the lower half of the left thigh. The popliteal and calf veins were not able to be interrogated There is a mass in the popliteal fossa, apparently very tender and possibly representing hematoma or abscess. Additional modality imaging recommended. Findings discussed with ER physician following completion of this study 06/19/2024 DATA REPOSITORY:
[2024-06-19 14:12] LABS: Lactate 1.5 mmol/L (<or=2.0)
[2024-06-19 14:15] LABS: Abs Immature Grans 0.06 10^3/uL (0.0-0.06); Absolute Eosinophil Count 0.03 10^3/uL (0.0-0.7); Absolute Lymphocyte Count 1.11 10^3/uL (1.2-3.4); Absolute Monocyte Count 0.87 10^3/uL (0.1-0.8); Absolute Neutrophil Count 9.36 10^3/uL (1.2-6.7); Basophils % 0.3 %; Eosinophils % 0.3 %; HCT 37.4 % (40.0-50.0); HGB 12.6 g/dL (13.5-17.5); Immature Grans % 0.5 %; Lymphocytes % 9.7 %; MCHC 33.7 % (32.0-36.0); MCV 92 fL (80-95); MPV 9.7 fL (8.0-11.0); Monocytes % 7.6 %; Neutrophils % 81.6 %; Platelet Count 264 10^3/uL (130-400); RBC 4.07 10^6/uL (4.36-5.78); RDW 12.4 % (11.8-14.1); RDW-SD 41.8 fL; WBC 11.47 10^3/uL (4.4-10.8)
[2024-06-19 14:16] LABS: Absolute Basophil Count 0.03 10^3/uL (0.0-0.2)
[2024-06-19 14:17] LABS: ESR 96 mm/hr (0-20)
[2024-06-19 14:24] LABS: INR 1.2 (0.9-1.1); Prothrombin Time 11.9 sec (9.1-11.1)
[2024-06-19 14:32] LABS: ALT 11 U/L (16-63); AST 10 U/L (15-37); Albumin 2.1 g/dL (3.4-5.0); Alkaline Phosphatase 100 U/L (46-116); Anion Gap 12.2 mmol/L (3-11); BUN 16 mg/dL (7-18); Bilirubin, Total 0.6 mg/dL (0.2-1.0); CO2 25.8 mmol/L (21.0-32.0); CREATININE 1.3 mg/dL (0.70-1.30); Calcium 9.2 mg/dL (8.5-10.1); Chloride 94 mmol/L (98-107); Estimated GFR 62.11 (mL/min/1.73m2); Glucose 330 mg/dL (74-106); Magnesium 1.6 mg/dL (1.8-2.4); Potassium 4.1 mmol/L (3.5-5.1); Sodium 132 mmol/L (136-145); Total Protein 7.9 g/dL (6.4-8.2)
[2024-06-19 14:33] LABS: Troponin I < 4 ng/L (<or=76)
--- NOTE | 2024-06-19 14:35 | ED.GENADUL_ITS ---
Discharge Plan Disposition Patient Disposition: Admit to [facility] Condition: Fair Discharge Details Chief Complaint: Vascular Clinical Impression: Abscess of popliteal region, Type 2 diabetes mellitus with diabetic polyneuropathy, with long-term current use of insulin, Phantom pain following amputation of lower limb, Diabetic foot ulcer, PAD (peripheral artery disease), HTN (hypertension), Deep vein thrombosis (DVT) of proximal vein of left lower extremity Primary Care Provider: Franco Quick ED Provider: Jocy Bowser Home Meds and New Rx's Prescriptions: No Action apixaban 5 mg tablet 5 mg PO BID Qty: 180 3RF atorvastatin 20 mg tablet 20 mg PO DAILY Qty: 90 3RF cholecalciferol (vitamin D3) 50 mcg (2,000 unit) capsule 50 mcg PO QHS Qty: 90 3RF gabapentin 300 mg capsule 300 mg PO TID Qty: 270 3RF insulin aspart U-100 [Novolog FlexPen U-100 Insulin] 100 unit/mL (3 mL) insulin pen 18 unit subcut TID Qty: 15 3RF Rx Instructions: with meals insulin glargine 100 unit/mL (3 mL) insulin pen 55 unit subcut QHS Qty: 15 6RF levothyroxine 112 mcg capsule 112 mcg PO DAILY Qty: 90 3RF losartan 25 mg tablet 25 mg PO DAILY Qty: 90 3RF magnesium oxide 400 mg (241.3 mg magnesium) tablet 400 mg PO DAILY Qty: 90 3RF metformin 500 mg tablet 1,000 mg PO BIDWMEAL Qty: 180 3RF Rx Instructions: With breakfast and dinner methocarbamol 500 mg tablet 500 mg PO Q8H PRN Qty: 90 3RF pantoprazole 40 mg tablet,delayed release (DR/EC) 40 mg PO .before breakfast Qty: 90 3RF sertraline 50 mg tablet 50 mg PO DAILY Qty: 90 3RF tamsulosin 0.4 mg capsule 0.4 mg PO DAILY Qty: 90 3RF oxycodone 5 mg tablet 5 mg PO TID MDD 15 mg PRN (Reason: pain) Qty: 15 0RF (DME) FreeStyle Hao 2 Sensor Kit See Rx Instructions .ROUTE .MEDSUPPLY Qty: 1 11RF Rx Instructions: As directed, test TID and prn (DME) FreeStyle Hao 2 [place] Misc See Rx Instructions .ROUTE .MEDSUPPLY Qty: 1 0RF Rx Instructions: As directed, TID and prn sildenafil 100 mg tablet 100 mg PO DAILY PRN (Reason: sexual activity) Qty: 30 3RF Rx Instructions: administer 30 minutes to 4 hours before activity (DME) diabetic shoes See Rx Instructions .Route .MEDSUPPLY Qty: 1 0RF Rx Instructions: As directed Santyl 250 unit/gram ointment 1 applic topical DAILY Qty: 90 0RF Rx Instructions: Ulcer measures 1.1 x 0.9 x 0.3 cm acetaminophen 500 mg capsule 500 mg PO Q6H (DME) pen needle, diabetic 31 gauge x 5/16 needle See Rx Instructions .Route Rx Instructions: As directed (DME) blood-glucose meter [FreeStyle [place] Lite] Kit See Rx Instructions .Route Rx Instructions: As directed blood glucose test stripts 1 ea XX DIRECTED PRN (DME) lancets [FreeStyle Lancets] 28 gauge misc See Rx Instructions .Route Rx Instructions: As directed HPI General Mode of arrival: EMS . Date/Time Provider Initiated Documentation: 06/19/24 13:45 . Limitations to Documentation: no limitations . Information obtained by: patient and old records reviewed . HPI Narrative: HPI: This is a 63-year-old male patient with a past medical history significant for diabetes, peripheral artery disease, status post right lower extremity amputation, and with a history of known DVTs, presenting for evaluation of worsening pain, swelling, and decreased pulses of his left lower extremity. The patient was seen in his doctor's office on the , had an ultrasound that revealed a lower extremity DVT, and his Eliquis was increased from 5 mg twice daily to 10 mg twice daily. Today he was brought in with worsening pain in the popliteal region, ongoing swelling, and weak pulses in a cold lower extremity. The patient reports that he does not feel like he has had change in sensation in that region, is able to move his toes without difficulty, but states that the pain is quite severe. He has been using Aleve as well as oxycodone for management of pain at his facility. The patient reports that he did recently have a slip off of the couch, and has been more immobile due to this. He states that he has not had a fever, does have a known wound at the base of his fifth toe, for which he has not been on antibiotics in some time. Denies fevers or chills. He has had no shortness of breath or chest pain. Exam: Gen: Awake and alert, in no apparent distress HEENT: Non-icteric sclera Neck: Supple Lungs: No apparent respiratory distress, normal respiratory effort. Lung sounds clear and equal without wheezing, rhonchi, rales CV: Appears well perfused, heart with regular rate and rhythm, the patient has strong distal pulses bilateral upper extremities, very weak pulse DP and TP of the left lower extremity. Abdomen: Non-distended MSK: Moves his extremities without apparent limitation in ROM. The patient has swelling with 2+ peripheral edema to the left lower extremity, very cold to touch, mild overlying redness. Skin: Visualized skin without rashes, cyanosis. The patient has an approximately 1-1/2 cm wound to the lateral aspect of the base of the fifth toe on the left side, with some surrounding induration. Neuro: No obvious focal deficits or facial asymmetry. Speaks in full, clear sentences. Psych: Appropriate for situation. MDM: This is a 63-year-old male patient with a past medical history significant for diabetes, DVT on Eliquis, peripheral vascular disease presenting for evaluation of worsening swelling and pain of his left lower extremity as well as new temperature change and weakened pulses. My differential includes but is not limited to extension of his DVT, phlegmasia cerulea and dolor/alba dolor, I am able to palpate pulses and have a lower concern for arterial occlusion, I also considered cellulitis, osteomyelitis, abscess given the wound present on the left foot. The patient has no chest pain or shortness of breath nor hypoxia to significantly increase my concern for pulmonary embolism. I am quite concerned about treatment failure in this patient who has been therapeutically anticoagulated and developed a new clot despite this. We will obtain laboratory studies to include CBC, CMP, magnesium, troponin, lactate, ESR, CRP, and blood cultures. I will also obtain a repeat ultrasound to evaluate for extension of the clot and x-ray of the foot to evaluate for osteomyelitis. I will provide the patient with a dose of Tylenol for initial symptomatic management of pain. ED Course: I reviewed the patient's laboratory studies, which show a very mild leukocytosis to 11.4, slight anemia to 12.6 and no thrombocytopenia. INR 1.2, lactate 1.5, no significant electrolyte derangements, evidence of kidney dysfunction or liver disease other than an elevated glucose of 330 and a very mildly low magnesium at 1.6. Troponin was undetectable, and in the absence of chest pain I do not feel that delta troponins are indicated. ESR elevated to 96. Duplex without extension of clot, but a large fluid collection in the poplitea fossa was unable to be entirely evaluated due to pain. Considered bakers cyst, abscess, hematoma, pseudoaneurysm. CTA left lower extremity obtained, arterial flow preserved, discrete fluid collection most likely infected hematoma vs abscess. XR foot without evidence of osteo. Discussed the case with [facility] ortho and general surgery who do not feel that this patient can be adequately managed in our facility. Consulted vascular at [facility], recommending ongoing anticoagulation with therapeutic heparin, but do not feel that the fluid collection is related to his PVD. They recommend transitioning back to oral anticoagulants when clinically appropriate. Consulted [facility] who anticipates that this patient may be appropriate for a down and back transfer after they consult with their MSK team in the morning. Recommend IV Abx to include vancomycin and CTX. Admitted to our hospitalist service awaiting [facility] callback. Jocy Bowser MD Related Data Home Medications ?Medication ?Instructions ?Recorded ?Confirmed acetaminophen 500 mg capsule 500 mg PO Q6H 10/15/23 06/19/24 blood glucose test stripts 1 ea XX DIRECTED PRN 10/15/23 06/19/24 blood-glucose meter (FreeStyle 10/15/23 06/17/24 [place] Lite kit) lancets 28 gauge (FreeStyle 10/15/23 06/17/24 Lancets) pen needle, diabetic 31 gauge x 10/15/23 06/17/24 5/16 flash glucose scanning reader #1 ea 10/25/23 06/17/24 (FreeStyle Hao 2 [place]) flash glucose sensor (FreeStyle #1 ea 10/25/23 06/17/24 Hao 2 Sensor kit) apixaban 5 mg tablet 5 mg PO BID #180 tabs 11/09/23 06/19/24 atorvastatin 20 mg tablet 20 mg PO DAILY #90 tabs 11/09/23 06/19/24 cholecalciferol (vitamin D3) 50 50 mcg PO QHS #90 caps 11/09/23 06/19/24 mcg (2,000 unit) capsule gabapentin 300 mg capsule 300 mg PO TID #270 caps 11/09/23 06/19/24 insulin aspart U-100 100 unit/mL 18 unit (0.18 mL) subcut TID #15 mL 11/09/23 06/19/24 (3 mL) subcutaneous pen (Novolog FlexPen U-100 Insulin aspart) insulin glargine 100 unit/mL (3 55 unit (0.55 mL) subcut QHS #15 mL 11/09/23 06/19/24 mL) subcutaneous pen levothyroxine 112 mcg capsule 112 mcg PO DAILY #90 caps 11/09/23 06/19/24 losartan 25 mg tablet 25 mg PO DAILY #90 tabs 11/09/23 06/19/24 magnesium oxide 400 mg (241.3 mg 400 mg PO DAILY #90 tabs 11/09/23 06/19/24 magnesium) tablet metformin 500 mg tablet 1,000 mg (2 x 500 mg) PO BIDWMEAL 11/09/23 06/19/24 #180 tabs methocarbamol 500 mg tablet 500 mg PO Q8H PRN Pain or muscle 11/09/23 06/19/24 spasms #90 tabs pantoprazole 40 mg tablet,delayed 40 mg PO .before breakfast #90 tabs 11/09/23 06/19/24 release sertraline 50 mg tablet 50 mg PO DAILY #90 tabs 11/09/23 06/19/24 tamsulosin 0.4 mg capsule 0.4 mg PO DAILY #90 caps 11/09/23 06/19/24 sildenafil 100 mg tablet 100 mg PO DAILY PRN sexual 12/13/23 06/19/24 activity #30 tabs diabetic shoes #1 ea 02/28/24 06/17/24 collagenase clostridium histo. 250 1 applic topical DAILY #90 grams 03/19/24 06/19/24 unit/gram topical ointment (Santyl) oxycodone 5 mg tablet 5 mg PO TID PRN pain #15 tabs 06/17/24 06/19/24 Previous Rx's ?Medication ?Instructions ?Recorded flash glucose scanning reader #1 ea 10/25/23 (FreeStyle Hao 2 [place]) flash glucose sensor (FreeStyle #1 ea 10/25/23 Hao 2 Sensor kit) apixaban 5 mg tablet 5 mg PO BID #180 tabs 11/09/23 atorvastatin 20 mg tablet 20 mg PO DAILY #90 tabs 11/09/23 cholecalciferol (vitamin D3) 50 50 mcg PO QHS #90 caps 11/09/23 mcg (2,000 unit) capsule gabapentin 300 mg capsule 300 mg PO TID #270 caps 11/09/23 insulin aspart U-100 100 unit/mL 18 unit (0.18 mL) subcut TID #15 mL 11/09/23 (3 mL) subcutaneous pen (Novolog FlexPen U-100 Insulin aspart) insulin glargine 100 unit/mL (3 55 unit (0.55 mL) subcut QHS #15 mL 11/09/23 mL) subcutaneous pen levothyroxine 112 mcg capsule 112 mcg PO DAILY #90 caps 11/09/23 losartan 25 mg tablet 25 mg PO DAILY #90 tabs 11/09/23 magnesium oxide 400 mg (241.3 mg 400 mg PO DAILY #90 tabs 11/09/23 magnesium) tablet metformin 500 mg tablet 1,000 mg (2 x 500 mg) PO BIDWMEAL 11/09/23 #180 tabs methocarbamol 500 mg tablet 500 mg PO Q8H PRN Pain or muscle 11/09/23 spasms #90 tabs pantoprazole 40 mg tablet,delayed 40 mg PO .before breakfast #90 tabs 11/09/23 release sertraline 50 mg tablet 50 mg PO DAILY #90 tabs 11/09/23 tamsulosin 0.4 mg capsule 0.4 mg PO DAILY #90 caps 11/09/23 sildenafil 100 mg tablet 100 mg PO DAILY PRN sexual 12/13/23 activity #30 tabs diabetic shoes #1 ea 02/28/24 collagenase clostridium histo. 250 1 applic topical DAILY #90 grams 03/19/24 unit/gram topical ointment (Santyl) oxycodone 5 mg tablet 5 mg PO TID PRN pain #15 tabs 06/17/24 Allergies Allergy/AdvReac Type Severity Reaction Status Date / Time No Known Allergies Allergy Verified 06/19/24 13:44 General Stated Complaint: Vascular FARHANA: 3 Course Vital Signs Vital signs: Vital Signs Temperature 37.6 C H 06/19/24 13:19 Pulse 99 H 06/19/24 13:19 Respiratory Rate 17 06/19/24 13:19 Blood Pressure 170/67 H 06/19/24 13:19 Pulse Oximetry 93 06/19/24 13:19 Temperature 37.6 C H 06/19/24 13:19 Temperature Source Oral 06/19/24 13:19 Pulse 99 H 06/19/24 13:19 Respiratory Rate 17 06/19/24 13:19 Respiratory Effort Normal 06/19/24 13:56 Blood Pressure 170/67 H 06/19/24 13:19 Pulse Oximetry 93 06/19/24 13:19 Oxygen Delivery Method Room Air 06/19/24 13:19 Oxygen Flow Rate 0 06/19/24 13:19 Pain Level 8 06/19/24 13:56 Lab/Test Results Lab/Test Results: 06/19/24 14:16 Blood Blood Culture - Pending 06/19/24 14:05 Blood Blood Culture - Pending Laboratory Tests Range/Units 06/19/24 06/19/24 06/19/24 13:45 15:05 17:05 WBC (4.4-10.8) 10^3/uL 11.47 H RBC (4.36-5.78) 10^6/uL 4.07 L Hgb (13.5-17.5) g/dL 12.6 L Hct (40.0-50.0) % 37.4 L MCV (80-95) fL 92 MCH (27.0-33.0) pg 31.0 MCHC (32.0-36.0) % 33.7 RDW (11.8-14.1) % 12.4 Plt Count (130-400) 10^3/uL 264 MPV (8.0-11.0) fL 9.7 Immature Gran % % 0.5 Neutrophils % % 81.6 Lymphocytes % % 9.7 Monocytes % % 7.6 Eosinophils % % 0.3 Basophils % % 0.3 Nucleated RBC % (0.0-0.3) % 0.0 Absolute Neutrophils (1.2-6.7) 10^3/uL 9.36 H Absolute Lymphocytes (1.2-3.4) 10^3/uL 1.11 L Absolute Monocytes (0.1-0.8) 10^3/uL 0.87 H Absolute Eosinophils (0.0-0.7) 10^3/uL 0.03 Absolute Basophils (0.0-0.2) 10^3/uL 0.03 ESR (0-20) mm/hr 96 H PT (9.1-11.1) sec 11.9 H INR (0.9-1.1) 1.2 H VBG Lactate (<or=2.0) mmol/L 1.5 Sodium (136-145) mmol/L 132 L Potassium (3.5-5.1) mmol/L 4.1 Chloride (98-107) mmol/L 94 L Carbon Dioxide (21.0-32.0) mmol/L 25.8 Anion Gap (3-11) mmol/L 12.2 H BUN (7-18) mg/dL 16 Creatinine (0.70-1.30) mg/dL 1.3 Est GFR (CKD-EPI 2020) (mL/min/1.73m2) 62.11 Glucose (74-106) mg/dL 330 H Calcium (8.5-10.1) mg/dL 9.2 Magnesium (1.8-2.4) mg/dL 1.6 L Total Bilirubin (0.2-1.0) mg/dL 0.6 AST (15-37) U/L 10 L ALT (16-63) U/L 11 L Alkaline Phosphatase (46-116) U/L 100 Troponin I (<or=76) ng/L < 4 Cancelled Cancelled Total Protein (6.4-8.2) g/dL 7.9 Albumin (3.4-5.0) g/dL 2.1 L Medical Decision Making Quality:SDOH Health Related Social Needs: Health related social needs details Noted PFSH All Active Problems (Updated 06/19/24 @ 23:02 by Jocy Bowser MD) Abscess of popliteal region (Acute) HTN (hypertension) (Chronic) Chronic pain (Chronic) Abscess of popliteal region (Acute) Non-healing ulcer of left foot (Acute) Chronic ulcer of left foot (Acute) Uncontrolled diabetes mellitus with hyperglycemia (Acute) Edema (Acute) Venous (peripheral) insufficiency (Acute) Atherosclerotic PVD with ulceration (Acute) PAD (peripheral artery disease) (Chronic) Ulcer of left foot with fat layer exposed (Acute) Diabetic foot ulcer (Acute) Erectile dysfunction (Acute) Phantom pain following amputation of lower limb (Acute) Type 2 diabetes mellitus with diabetic polyneuropathy, with long-term current use of insulin (Chronic) Memory loss due to medical condition (Acute) Craniopharyngioma (Acute) Chronic osteomyelitis involving right ankle and foot (Acute) Recurrent falls (Acute) Other chronic pain (Acute) Hypothyroidism (Chronic) Hyperplastic polyp of descending colon (Acute) Gastroesophageal reflux disease with esophagitis and hemorrhage (Acute) Gait instability (Acute) Failure to thrive in adult (Acute) Chronic deep vein thrombosis (DVT) (Chronic) Deep vein thrombosis (DVT) of proximal vein of left lower extremity (Acute) Benign prostatic hyperplasia (Chronic) Anemia (Chronic) Adjustment disorder with mixed anxiety and depressed mood (Chronic) Surgical History Status post total replacement of left hip History of right below knee amputation Family History Mother Alcohol use disorder Substance use disorder Father Alcohol use disorder Substance use disorder Cancer Social History Smoking/Tobacco Use Status: Former Tobacco Use tobacco type: smokeless tobacco Tobacco: How many years used: 30 Smokeless tobacco user: snuff Second Hand Exposure: Yes Smoking risk assessment performed?: Yes Alcohol Intake: never Drug use: Never Adopted: No Caregiver/Support person: No Foster care: No Household members: none Housing: apartment Number of Children: 2 number of grandchildren: 1 Communication Needs: None Education Level: high school Do you need help understanding health information?: Rarely current occupation: None Pets and animals: No Sexually active: No Do you think of yourself as: straight/heterosexual Current gender identity: male What is your relationship status?: How often do you talk on the phone with friends or family?: twice per week Do you belong to any clubs or organized social groups?: no Panel score (0-1 are the most socially isolated patients): 0 What type of physical activity do you participate in: additional Details: PT Excercises 2-3 times day Duration: 45-60 minutes/day Frequency: daily Lena/Spiritism: Church Special lena needs: No Seatbelt use: always Helmet use: No (Never) 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
[2024-06-19] MEDS: Acetaminophen 500 MG TAB 1000 MG PO (14:41)
[2024-06-19 15:01] LABS: C-Reactive Protein > 25.00 mg/dL (<or=0.5)
--- NOTE | 2024-06-19 15:15 | DI.CT_ITS ---
Exam(s) CT LOWER EXTREMITY LT CTA EXAM: CT LOWER EXTREMITY LT CTA CLINICAL HISTORY: cold, weaker pulses, popliteal mass. TECHNIQUE: Imaging Protocol: Axial computed tomography images with coronal and sagittal reformatted images were created and reviewed. CONTRAST MATERIAL: Intravenous: Omnipaque 350 Contrast volume:100 ml Contrast route:IV - COMPARISON: US US LOWER EXTREMITY VENOUS LT from 06/17/2024 US US LOWER EXTREMITY VENOUS LT from 06/19/2024 CR XR FOOT LT COMPLETE from 06/19/2024 FINDINGS: Bones: There is no evidence of fracture or dislocation. No cellulitic or osteomyelitic changes are identified. No lytic or sclerotic lesions are identified. Joints: There is a left hip prosthesis which creates some artifact. There are mild degenerative pedro luis nges of the knee and ankle. There is a moderate-sized knee joint effusion and small Biggs's cyst. Soft Tissues: There is a large area peripherally enhancing lobulated low attenuation in the poplitea l fossa consistent with an abscess. It measures roughly 13 cm in length by 6 cm transverse by 5.5 cm AP. There is mild edema in the subcutaneous fat. Vasculature: Deep venous thrombosis was demonstrated on prior ultrasound examinations. On the curren t exam, the arterial system a appears patent down to the level of the foot. The vessels in the foot are suboptimally visualized due to their small size. There are mild atherosclerotic calcifications b ut no areas of significant stenosis. IMPRESSION: No evidence of arterial occlusion or significant stenosis. Large abscess in the region of the popliteal fossa. Knee joint effusion and Biggs cyst are also present. RADIATION DOSE DELIVERED: Total DLP DATA REPOSITORY: All CT scans at this facility are submitted to the National Radiology Data Registry (NRDR) Dose Index Registry (DIR) with the [employer] (A[employer]). RADIATION OPTIMIZATION: All CT scans at this facility use at least one of these dose optimization te chniques: automated exposure control; mA and/or kV adjustment per patient size (includes targeted exa ms where dose is matched to clinical indication); or iterative reconstruction.
--- NOTE | 2024-06-19 15:30 | DI.RAD_ITS ---
Exam(s) XR FOOT LT COMPLETE EXAM: XR FOOT LT COMPLETE CLINICAL HISTORY: osteo. Area of interest is not specified. TECHNIQUE: 2D digital imaging was performed. Three views. COMPARISON: CR XR FOOT LT COMPLETE from 05/21/2024 FINDINGS: Area of interest is not specified. Exam is limited but I suboptimal technique with over penetration on the oblique view. BONES: No acute fracture is present. No bony destructive lesion is seen. JOINTS: No dislocation present. SOFT TISSUE: Normal. IMPRESSION: Unremarkable radiographs of the left foot. No area of bony erosion identified. DATA REPOSITORY: RADIATION DOSE DELIVERED:
[2024-06-19] MEDS: Normal Saline - Diluent 50 ML VIAL IJ (17:16)
[2024-06-19] MEDS: Omnipaque 350 MG/ML 100 ML BTL IJ (17:17)
[2024-06-19] MEDS: Heparin in 0.45% NaCl 25,000 UNIT/250 ML BAG 18 UNIT IVINF (21:02)
[2024-06-19 21:20] LABS: PTT Activated 28.1 sec (20.6-30.2)
--- NOTE | 2024-06-19 21:23 | W.SURGCON ---
Date of service: 06/19/24 Time of Service: 18:45 Assessment and Plan Assessment and plan (1) Abscess of popliteal region: Status: Acute Assessment and plan: 63-year-old man with complicated medical and surgical history including amputation on his right lower extremity. From his own given history, it sounds like he has significant vascular disease and poorly controlled diabetes. Based off of the whole story from the patient's point of view, my assessment of this is that it probably is NOT an abscess and is probably blood/hematoma. I think this is hemarthrosis, possibly as the underlying source of the politeal fluid and may or may not have relationship with the Biggs's cyst. This is in the setting of being anticoagulated. I doubt there is a pseudoaneurysm present but there could be. While I do not think this is actually an abscess, it could be the beginning of an infected hematoma. If it is an abscess, I think it was originally hematoma. There is no erythema and there is no evidence of an entry?site for the infectious source. I am hesitant to recommend any intervention on this because opening up the hematoma could certainly bring in the beginnings of infectious sources and this could lead to an [id number] amputation if it is lower extremity is otherwise compromised chronically. If it isn't infected, it probably needs to be left alone to avoid introducing infection. I'm not 100% sure. I recommend tertiary consultation. I discussed this directly, in person, with the emergency department provider. History of Present Illness Narrative: I was asked by the emergency department physician to weigh in on this complicated patient's left leg tenderness. Patient says he has had pain behind his knee for about 2 weeks. He has an amputation on his right leg. He reports he got up off the couch to go use the bathroom and he fell. He thinks he twisted his knee when he fell. He has a history of blood clots as well as being on anticoagulation. He says the swelling behind his knee happened pretty rapidly and possibly within the first few hours. It got worse over the next couple of days. A CT scan was done today which showed a popliteal abscess. He has not had any skin trauma anywhere near this location. PFSH All Active Problems (Updated 06/19/24 @ 21:33 by Jeremías Mccormick MD) Abscess of popliteal region (Acute) Non-healing ulcer of left foot (Acute) Chronic ulcer of left foot (Acute) Uncontrolled diabetes mellitus with hyperglycemia (Acute) Edema (Acute) Venous (peripheral) insufficiency (Acute) Atherosclerotic PVD with ulceration (Acute) PAD (peripheral artery disease) (Acute) Ulcer of left foot with fat layer exposed (Acute) Diabetic foot ulcer (Acute) Erectile dysfunction (Acute) Phantom pain following amputation of lower limb (Acute) Type 2 diabetes mellitus with diabetic polyneuropathy, with long-term current use of insulin (Acute) Memory loss due to medical condition (Acute) Craniopharyngioma (Acute) Chronic osteomyelitis involving right ankle and foot (Acute) Recurrent falls (Acute) Other chronic pain (Acute) Hypothyroidism (Chronic) Hyperplastic polyp of descending colon (Acute) Gastroesophageal reflux disease with esophagitis and hemorrhage (Acute) Gait instability (Acute) Failure to thrive in adult (Acute) Chronic deep vein thrombosis (DVT) (Acute) Deep vein thrombosis (DVT) of proximal vein of left lower extremity (Acute) Benign prostatic hyperplasia (Chronic) Anemia (Chronic) Adjustment disorder with mixed anxiety and depressed mood (Acute) Surgical History Status post total replacement of left hip History of right below knee amputation Family History Mother Alcohol use disorder Substance use disorder Father Alcohol use disorder Substance use disorder Cancer Social History Smoking/Tobacco Use Status: Former Tobacco Use tobacco type: smokeless tobacco Tobacco: How many years used: 30 Smokeless tobacco user: snuff Second Hand Exposure: Yes Smoking risk assessment performed?: Yes Alcohol Intake: never Drug use: Never Adopted: No Caregiver/Support person: No Foster care: No Household members: none Housing: apartment Number of Children: 2 number of grandchildren: 1 Communication Needs: None Education Level: high school Do you need help understanding health information?: Rarely current occupation: None Pets and animals: No Sexually active: No Do you think of yourself as: straight/heterosexual Current gender identity: male What is your relationship status?: How often do you talk on the phone with friends or family?: twice per week Do you belong to any clubs or organized social groups?: no Panel score (0-1 are the most socially isolated patients): 0 What type of physical activity do you participate in: additional Details: PT Excercises 2-3 times day Duration: 45-60 minutes/day Frequency: daily Lena/Mandaen: Cheondoism Special lena needs: No Seatbelt use: always Helmet use: No (Never) Drive intox or ride w/intox route delivery driver: No Exam Narrative Exam Narrative: Gen: Non-toxic, comfortable and interactive Neuro: Alert and oriented x3 Psych: Good mood and affect. Good insight and understanding into condition. Left lower extremity: The area behind the left knee is diffusely tender and relatively firm. No visible erythema. No blanching erythema. No evidence of skin trauma such as abrasions or cuts. Results Last Vital Signs Temp 99.7 F H 06/19/24 13:19 Pulse 93 H 06/19/24 21:00 Resp 21 06/19/24 21:00 BP 177/66 H 06/19/24 21:00 Pulse Ox 96 06/19/24 17:31 Labs 06/19/24 13:45 06/19/24 13:45 Labs: Laboratory Results - last 24 hr 06/19/24 06/19/24 06/19/24 13:45 15:05 17:05 WBC 11.47 H RBC 4.07 L Hgb 12.6 L Hct 37.4 L MCV 92 MCH 31.0 MCHC 33.7 RDW 12.4 Plt Count 264 MPV 9.7 Immature Gran % 0.5 Neutrophils % 81.6 Lymphocytes % 9.7 Monocytes % 7.6 Eosinophils % 0.3 Basophils % 0.3 Nucleated RBC % 0.0 Absolute Neutrophils 9.36 H Absolute Lymphocytes 1.11 L Absolute Monocytes 0.87 H Absolute Eosinophils 0.03 Absolute Basophils 0.03 ESR 96 H PT 11.9 H INR 1.2 H APTT VBG Lactate 1.5 Sodium 132 L Potassium 4.1 Chloride 94 L Carbon Dioxide 25.8 Anion Gap 12.2 H BUN 16 Creatinine 1.3 Est GFR (CKD-EPI 2020) 62.11 Glucose 330 H Calcium 9.2 Magnesium 1.6 L Total Bilirubin 0.6 AST 10 L ALT 11 L Alkaline Phosphatase 100 Troponin I < 4 Cancelled Cancelled C-Reactive Protein > 25.00 H Total Protein 7.9 Albumin 2.1 L 06/19/24 20:53 WBC RBC Hgb Hct MCV MCH MCHC RDW Plt Count MPV Immature Gran % Neutrophils % Lymphocytes % Monocytes % Eosinophils % Basophils % Nucleated RBC % Absolute Neutrophils Absolute Lymphocytes Absolute Monocytes Absolute Eosinophils Absolute Basophils ESR PT INR APTT 28.1 VBG Lactate Sodium Potassium Chloride Carbon Dioxide Anion Gap BUN Creatinine Est GFR (CKD-EPI 2020) Glucose Calcium Magnesium Total Bilirubin AST ALT Alkaline Phosphatase Troponin I C-Reactive Protein Total Protein Albumin
--- NOTE | 2024-06-19 22:20 | HPE_ITS ---
Date of service: 06/19/24 Time of Service: 22:20 Assessment and Plan Assessment and plan (1) Abscess of popliteal region: Start date: 06/19/24 Status: Acute Assessment and plan: This is a 63-year-old gentleman with recent fall and strain of his left lower extremity resulting in hematoma over the popliteal area which is large and appears to be possibly abscess. He was admitted for conversion to IV heparin infusion for his chronic DVT having taken his last Eliquis dose the morning of admission. He is also on IV vancomycin with Rocephin pending transfer to [facility]/orthopedics for incision and drainage of abscess. He is concerned about anesthesia and will discuss this with the team at [facility]. He will most likely return for continued IV antibiotics until stable and discharged home back on Eliquis. He is a full code. (2) Type 2 diabetes mellitus with diabetic polyneuropathy, with long-term current use of insulin: Status: Chronic Assessment and plan: Glucometer measurements before meals and at bedtime with moderate sliding scale short acting insulin, holding outpatient medical therapy while hospitalized. (3) PAD (peripheral artery disease): Status: Chronic Assessment and plan: Continue outpatient medical therapy monitoring for bleeding. Patient is off Eliquis and on heparin infusion for now. (4) Chronic pain: Status: Chronic Assessment and plan: Continue outpatient oxycodone with increased dosing frequency and doses because of acute pain. Morphine IV as needed for pain with patient to return to chronic outpatient medical therapy at discharge and follow-up with PCP. VPMS was reviewed and is appropriate for patient's treatment. He did not require urine drug screen with low risk of abuse potential. (5) Chronic deep vein thrombosis (DVT): Status: Chronic Assessment and plan: Chronically on Eliquis which was increased recently because of acute DVT progression with fall. Now on heparin infusion until procedure and then can return to Eliquis prophylaxis and treatment. Patient is at risk for bleeding. (6) HTN (hypertension): Status: Chronic Assessment and plan: Continue outpatient medical therapy adjust as needed. (7) Benign prostatic hyperplasia: Status: Chronic Assessment and plan: Continue outpatient medical therapy. (8) Hypothyroidism: Status: Chronic Assessment and plan: Check TSH and continue outpatient medical therapy. (9) Adjustment disorder with mixed anxiety and depressed mood: Status: Chronic Assessment and plan: Patient is anxious and will continue his outpatient medical therapy. Avoid benzodiazepines with chronic opioid use. History of Present Illness History of Present Illness Chief Complaint: Swollen and very painful left knee status post fall Narrative: This is a 63-year-old male patient who has a history of right BKA secondary to nonhealing diabetic ulcer on the right foot with chronic phantom pain on oxycodone. He recently was walking without his right prosthesis and fell in front of his couch onto his right side. This was sore for couple of days but he had no significant bruising he is chronically on Eliquis for chronic DVT. He did note left knee pain and did visit his PCP who did an in office ultrasound revealing DVT for which he had his Eliquis doubled at 10 mg twice daily. He progressed with left behind the knee pain and swelling of his leg behind the knee as well as below the knee and ankle as well as his foot. This was minimally pitting but uncomfortable. He does have chronic dry ulcer over his lateral left foot at the MCP joint area which is not draining but slightly erythematous. This is cared for by home health and podiatry. She reported to the ED for evaluation of his left leg pain behind the knee especially with his very painful and swelling. He was found to have a large hematoma which may be abscess by imaging and review of this case with local orthopedics who deferred to [facility] orthopedics and interventional radiology at [facility] to address in the morning with a down back procedure if possible. Patient also was switched to heparin infusion rather than Eliquis with his last dose of Eliquis the morning of admission. He denies any fever or chills and did not have an elevated WBC. He does have exquisite pain in that left knee. His pain management will be increased from his baseline oxycodone for his acute pain but he will not be discharged on increased narcotics. VPMS was reviewed and is appropriate for his chronic outpatient opioid treatment for chronic pain. He is expected to return home. He is a full code. Review of Systems Narrative: 13 point review of systems otherwise unrevealing or stable. [facility] All Active Problems (Updated 06/20/24 @ 09:42 by Nicolle Lares APRN) Sepsis (Acute) Abscess of popliteal region (Acute) HTN (hypertension) (Chronic) Chronic pain (Chronic) Abscess of popliteal region (Acute) Non-healing ulcer of left foot (Acute) Chronic ulcer of left foot (Acute) Uncontrolled diabetes mellitus with hyperglycemia (Acute) Edema (Acute) Venous (peripheral) insufficiency (Acute) Atherosclerotic PVD with ulceration (Acute) PAD (peripheral artery disease) (Chronic) Ulcer of left foot with fat layer exposed (Acute) Diabetic foot ulcer (Acute) Erectile dysfunction (Acute) Phantom pain following amputation of lower limb (Acute) Type 2 diabetes mellitus with diabetic polyneuropathy, with long-term current use of insulin (Chronic) Memory loss due to medical condition (Acute) Craniopharyngioma (Acute) Chronic osteomyelitis involving right ankle and foot (Acute) Recurrent falls (Acute) Other chronic pain (Acute) Hypothyroidism (Chronic) Hyperplastic polyp of descending colon (Acute) Gastroesophageal reflux disease with esophagitis and hemorrhage (Acute) Gait instability (Acute) Failure to thrive in adult (Acute) Chronic deep vein thrombosis (DVT) (Chronic) Deep vein thrombosis (DVT) of proximal vein of left lower extremity (Acute) Benign prostatic hyperplasia (Chronic) Anemia (Chronic) Adjustment disorder with mixed anxiety and depressed mood (Chronic) Surgical History History of right below knee amputation Status post total replacement of left hip Family History Mother Alcohol use disorder Substance use disorder Father Alcohol use disorder Substance use disorder Cancer Social History Smoking/Tobacco Use Status: Former Tobacco Use tobacco type: smokeless tobacco Tobacco: How many years used: 30 Smokeless tobacco user: snuff Second Hand Exposure: Yes Smoking risk assessment performed?: Yes Alcohol Intake: never Drug use: Never Adopted: No Caregiver/Support person: No Foster care: No Household members: none Housing: apartment Number of Children: 2 number of grandchildren: 1 Communication Needs: None Education Level: high school Do you need help understanding health information?: Rarely current occupation: None Pets and animals: No Sexually active: No Do you think of yourself as: straight/heterosexual Current gender identity: male What is your relationship status?: How often do you talk on the phone with friends or family?: twice per week Do you belong to any clubs or organized social groups?: no Panel score (0-1 are the most socially isolated patients): 0 What type of physical activity do you participate in: additional Details: PT Excercises 2-3 times day Duration: 45-60 minutes/day Frequency: daily Lena/Restorationist: Protestant Special lena needs: No Seatbelt use: always Helmet use: No (Never) Drive intox or ride w/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: No Meds Allergies and Home Medications Allergies Allergy/AdvReac Type Severity Reaction Status Date / Time No Known Allergies Allergy Verified 06/19/24 13:44 Home Medications ?Medication ?Instructions ?Recorded ?Confirmed ?Type acetaminophen 500 mg capsule 500 mg PO Q6H 10/15/23 06/19/24 History blood glucose test stripts 1 ea XX DIRECTED PRN 10/15/23 06/19/24 History blood-glucose meter (FreeStyle 10/15/23 06/17/24 History Ellijay Lite kit) lancets 28 gauge (FreeStyle 10/15/23 06/17/24 History Lancets) pen needle, diabetic 31 gauge x 10/15/23 06/17/24 History 5/16 flash glucose scanning reader #1 ea 10/25/23 06/17/24 Rx (FreeStyle Hao 2 Cade) flash glucose sensor (FreeStyle #1 ea 10/25/23 06/17/24 Rx Hao 2 Sensor kit) apixaban 5 mg tablet 5 mg PO BID #180 tabs 11/09/23 06/19/24 Rx atorvastatin 20 mg tablet 20 mg PO DAILY #90 tabs 11/09/23 06/19/24 Rx cholecalciferol (vitamin D3) 50 50 mcg PO QHS #90 caps 11/09/23 06/19/24 Rx mcg (2,000 unit) capsule gabapentin 300 mg capsule 300 mg PO TID #270 caps 11/09/23 06/19/24 Rx insulin aspart U-100 100 unit/mL 18 unit (0.18 mL) subcut TID #15 mL 11/09/23 06/19/24 Rx (3 mL) subcutaneous pen (Novolog FlexPen U-100 Insulin aspart) insulin glargine 100 unit/mL (3 55 unit (0.55 mL) subcut QHS #15 mL 11/09/23 06/19/24 Rx mL) subcutaneous pen levothyroxine 112 mcg capsule 112 mcg PO DAILY #90 caps 11/09/23 06/19/24 Rx losartan 25 mg tablet 25 mg PO DAILY #90 tabs 11/09/23 06/19/24 Rx magnesium oxide 400 mg (241.3 mg 400 mg PO DAILY #90 tabs 11/09/23 06/19/24 Rx magnesium) tablet metformin 500 mg tablet 1,000 mg (2 x 500 mg) PO BIDWMEAL 11/09/23 06/19/24 Rx #180 tabs methocarbamol 500 mg tablet 500 mg PO Q8H PRN Pain or muscle 11/09/23 06/19/24 Rx spasms #90 tabs pantoprazole 40 mg tablet,delayed 40 mg PO .before breakfast #90 tabs 11/09/23 06/19/24 Rx release sertraline 50 mg tablet 50 mg PO DAILY #90 tabs 11/09/23 06/19/24 Rx tamsulosin 0.4 mg capsule 0.4 mg PO DAILY #90 caps 11/09/23 06/19/24 Rx sildenafil 100 mg tablet 100 mg PO DAILY PRN sexual 12/13/23 06/19/24 Rx activity #30 tabs diabetic shoes #1 ea 02/28/24 06/17/24 Rx collagenase clostridium histo. 250 1 applic topical DAILY #90 grams 03/19/24 06/19/24 Rx unit/gram topical ointment (Santyl) oxycodone 5 mg tablet 5 mg PO TID PRN pain #15 tabs 06/17/24 06/19/24 Rx Exam Narrative Exam Narrative: General: Patient appears slightly older than stated age and chronically ill, alert and oriented x 3 with slightly pressured speech and increased anxiety during conversation. He is is in moderate distress from his left knee pain with swelling. HEENT: Normocephalic, eyes with pupils equal and react to light symmetrically, extraocular movement intact and sclera anicteric. Fair dentition. Slightly dry oral mucosa. Neck: Supple without JVD. Back: Good posture without CVA tenderness. Lungs: Fair aeration and clear to auscultation percussion. Heart: Regular rate and rhythm with no appreciable murmur or gallop. Abdomen: Moderately obese, soft to palpation without guarding or rebound. No focalizing tenderness. No palpable hepatosplenomegaly. Bowel sounds positive in all quadrants. Genitalia/rectal: Exam deferred. Extremities: Right BKA stump with compression stocking without swelling and intact with normal movement of right knee, left lower extremity with 2+ pitting edema over some hard edema especially over the lower thigh over the knee and then extending to the leg ankle and foot. Erythematous, dry ulceration with scabbing over left foot lateral fifth MCP area without drainage. Tenderness with any movement of left knee with swelling over the popliteal fossa without fluctuance. Patient is most comfortable with the knee partially flexed. Fair capillary refill. Skin: Actinic changes over sun exposed areas, pale, warm and dry with erythema over the left foot as mentioned, increased warmth to touch over left popliteal area. Otherwise warm and dry. Neuro: Cranial nerves II through XII gross intact, no focalized motor deficits and no tremor. Psych: Anxious with pressured speech, patient asked to slow the conversation frequently and has trouble concentrating at times. No abnormal thought processes. Remote and recent memory appear to be grossly intact. Results Imaging Imaging Studies: EXAM: CT LOWER EXTREMITY LT CTA Date of exam: 06/19/2024 CLINICAL HISTORY: cold, weaker pulses, popliteal mass. TECHNIQUE: Imaging Protocol: Axial computed tomography images with coronal and sagittal reformatted images were created and reviewed. CONTRAST MATERIAL: Intravenous: Omnipaque 350 Contrast volume:100 ml Contrast route:IV - COMPARISON: US US LOWER EXTREMITY VENOUS LT from 06/17/2024 US US LOWER EXTREMITY VENOUS LT from 06/19/2024 CR XR FOOT LT COMPLETE from 06/19/2024 FINDINGS: Bones: There is no evidence of fracture or dislocation. No cellulitic or osteomyelitic changes are identified. No lytic or sclerotic lesions are identified. Joints: There is a left hip prosthesis which creates some artifact. There are mild degenerative changes of the knee and ankle. There is a moderate-sized knee joint effusion and small Biggs's cyst. Soft Tissues: There is a large area peripherally enhancing lobulated low attenuation in the popliteal fossa consistent with an abscess. It measures roughly 13 cm in length by 6 cm transverse by 5.5 cm AP. There is mild edema in the subcutaneous fat. Vasculature: Deep venous thrombosis was demonstrated on prior ultrasound examinations. On the current exam, the arterial system a appears patent down to the level of the foot. The vessels in the foot are suboptimally visualized due to their small size. There are mild atherosclerotic calcifications but no areas of significant stenosis. IMPRESSION: No evidence of arterial occlusion or significant stenosis. Large abscess in the region of the popliteal fossa. Knee joint effusion and Biggs cyst are also present. EXAM: CT LOWER EXTREMITY LT CTA Date of exam: 06/19/2024 CLINICAL HISTORY: cold, weaker pulses, popliteal mass. TECHNIQUE: Imaging Protocol: Axial computed tomography images with coronal and sagittal reformatted images were created and reviewed. CONTRAST MATERIAL: Intravenous: Omnipaque 350 Contrast volume:100 ml Contrast route:IV - COMPARISON: US US LOWER EXTREMITY VENOUS LT from 06/17/2024 US US LOWER EXTREMITY VENOUS LT from 06/19/2024 CR XR FOOT LT COMPLETE from 06/19/2024 FINDINGS: Bones: There is no evidence of fracture or dislocation. No cellulitic or osteomyelitic changes are identified. No lytic or sclerotic lesions are identified. Joints: There is a left hip prosthesis which creates some artifact. There are mild degenerative changes of the knee and ankle. There is a moderate-sized knee joint effusion and small Biggs's cyst. Soft Tissues: There is a large area peripherally enhancing lobulated low attenuation in the popliteal fossa consistent with an abscess. It measures roughly 13 cm in length by 6 cm transverse by 5.5 cm AP. There is mild edema in the subcutaneous fat. Vasculature: Deep venous thrombosis was demonstrated on prior ultrasound examinations. On the current exam, the arterial system a appears patent down to the level of the foot. The vessels in the foot are suboptimally visualized due to their small size. There are mild atherosclerotic calcifications but no areas of significant stenosis. IMPRESSION: No evidence of arterial occlusion or significant stenosis. Large abscess in the region of the popliteal fossa. Knee joint effusion and Biggs cyst are also present. - EXAM: XR FOOT LT COMPLETE Date of exam: 06/19/2024 CLINICAL HISTORY: osteo. Area of interest is not specified. TECHNIQUE: 2D digital imaging was performed. Three views. COMPARISON: CR XR FOOT LT COMPLETE from 05/21/2024 FINDINGS: Area of interest is not specified. Exam is limited but I suboptimal technique with over penetration on the oblique view. BONES: No acute fracture is present. No bony destructive lesion is seen. JOINTS: No dislocation present. SOFT TISSUE: Normal. IMPRESSION: Unremarkable radiographs of the left foot. No area of bony erosion identified. Labs 06/20/24 03:47 06/20/24 03:47 Labs: Laboratory Results - last 24 hr 06/19/24 06/19/24 06/19/24 13:45 15:05 17:05 WBC 11.47 H RBC 4.07 L Hgb 12.6 L Hct 37.4 L MCV 92 MCH 31.0 MCHC 33.7 RDW 12.4 Plt Count 264 MPV 9.7 Immature Gran % 0.5 Neutrophils % 81.6 Lymphocytes % 9.7 Monocytes % 7.6 Eosinophils % 0.3 Basophils % 0.3 Nucleated RBC % 0.0 Absolute Neutrophils 9.36 H Absolute Lymphocytes 1.11 L Absolute Monocytes 0.87 H Absolute Eosinophils 0.03 Absolute Basophils 0.03 ESR 96 H PT 11.9 H INR 1.2 H APTT VBG Lactate 1.5 Sodium 132 L Potassium 4.1 Chloride 94 L Carbon Dioxide 25.8 Anion Gap 12.2 H BUN 16 Creatinine 1.3 Est GFR (CKD-EPI 2020) 62.11 Glucose 330 H Calcium 9.2 Magnesium 1.6 L Total Bilirubin 0.6 AST 10 L ALT 11 L Alkaline Phosphatase 100 Troponin I < 4 Cancelled Cancelled C-Reactive Protein > 25.00 H Total Protein 7.9 Albumin 2.1 L 06/19/24 20:53 WBC RBC Hgb Hct MCV MCH MCHC RDW Plt Count MPV Immature Gran % Neutrophils % Lymphocytes % Monocytes % Eosinophils % Basophils % Nucleated RBC % Absolute Neutrophils Absolute Lymphocytes Absolute Monocytes Absolute Eosinophils Absolute Basophils ESR PT INR APTT 28.1 VBG Lactate Sodium Potassium Chloride Carbon Dioxide Anion Gap BUN Creatinine Est GFR (CKD-EPI 2020) Glucose Calcium Magnesium Total Bilirubin AST ALT Alkaline Phosphatase Troponin I C-Reactive Protein Total Protein Albumin Last Vital Signs Temp 37.6 C H 06/19/24 13:19 Pulse 93 H 06/19/24 21:31 Resp 23 06/19/24 21:31 BP 179/70 H 06/19/24 21:31 Pulse Ox 96 06/19/24 17:31 Time Spent Time spent with Patient: >75 minutes Time was spent: preparing to see the patient(eg.review tests), obtaining and/or reviewing separately otained hiistory, ordering medications,tests, procedures, referring, communicating with other health care management coordinator, indepentently interpreting results and care coordination
[2024-06-19] MEDS: oxyCODONE 5 MG TAB PO (22:29)
[2024-06-19] MEDS: cefTRIAXone 1 GM/50 ML BAG IVPB (23:18)
[2024-06-19] MEDS: VANCOMYCIN 2,000 MG in Normal Saline 500 ML 333.3333 MG IVPB (23:58)
[2024-06-20] VITALS (7 sets, daily range): BP systolic 134–160; BP diastolic 71–80; PULSE 90–100; RESP 16–19; TEMP 36.5–37.3; O2SAT 92–96
[2024-06-20 00:09] LABS: COVID-19 PCR Negative (Negative); Influenza A PCR Negative (Negative); Influenza B PCR Negative (Negative); RSV PCR Negative (Negative); Source Nasopharynx
[2024-06-20 04:00] LABS: HCT 36.2 % (40.0-50.0); HGB 12.3 g/dL (13.5-17.5); MCH 31.1 pg (27.0-33.0); MCV 91 fL (80-95); MPV 9.5 fL (8.0-11.0); Platelet Count 267 10^3/uL (130-400); RBC 3.96 10^6/uL (4.36-5.78); RDW 12.5 % (11.8-14.1); WBC 10.15 10^3/uL (4.4-10.8)
[2024-06-20 04:11] LABS: PTT Activated 45.7 sec (20.6-30.2)
[2024-06-20 04:14] LABS: ALT 11 U/L (16-63); AST 13 U/L (15-37); Albumin 1.8 g/dL (3.4-5.0); Alkaline Phosphatase 93 U/L (46-116); Anion Gap 9.3 mmol/L (3-11); BUN 14 mg/dL (7-18); Bilirubin, Total 0.5 mg/dL (0.2-1.0); CO2 25.7 mmol/L (21.0-32.0); Calcium 8.8 mg/dL (8.5-10.1); Chloride 96 mmol/L (98-107); Glucose 346 mg/dL (74-106); Magnesium 1.6 mg/dL (1.8-2.4); Potassium 4.1 mmol/L (3.5-5.1); Sodium 131 mmol/L (136-145); Total Protein 7.1 g/dL (6.4-8.2)
[2024-06-20 04:47] LABS: TSH (W/Ref FT4) 1.32 uIU/mL (0.36-3.74)
--- NOTE | 2024-06-20 04:52 | W.PC.ACHO ---
Registration Status: Primary Language: Preferred Language: ED Information & Data Chief Complaint Vascular 06/19/24 14:39 Triage Note dx with DVT left leg 2 days 06/19/24 13:19 ago. lower leg is cold and upper leg is warm - no palpable pedal pulse per EMS . Hx IDDM. Eliquis increased to 10mg BID on Sunday. BKA right leg. wound on left foot was rebandaged by HH with loose debra wrap applied. pt was incontinent which is unusual for him. pain behind left knee. denies fever, CP, or SOB. (Last Reviewed 06/20/24 @ 01:38 by Catalino Tovar) History of right below knee amputation Status post total replacement of left hip Most Recent Vital Signs Temperature 36.8 C 06/20/24 03:47 Temperature Source Tympanic 06/20/24 03:47 Pulse 96 H 06/20/24 03:47 Pulse 95 H 06/19/24 22:40 Respiratory Rate 19 06/20/24 03:47 Respiratory Effort Normal 06/19/24 13:56 Blood Pressure 143/74 H 06/20/24 03:47 Blood Pressure Mean 102 06/19/24 22:15 Pulse Oximetry 92 06/20/24 03:47 Oxygen Delivery Method Room Air 06/20/24 03:47 Oxygen Flow Rate 0 06/20/24 03:47 Pain Level 3 06/20/24 03:47 Allergies No Known Allergies Allergy (Verified 06/19/24 13:44) Precautions Isolation Standard precaution 06/19/24 13:56 Active Medications Generic Name Dose Route Start Last Admin Trade Name Freq PRN Reason Stop Dose Admin Heparin Sodium/Sodium Chloride 25,000 unit in 250 mls @ 0 mls/hr 06/19/24 20:15 06/19/24 21:02 IVINF 18 mls/hr INFUSION ROSHAN 18 mls/hr Administration Protocol Per Protocol IV IV Catheter Type [Right Wrist] Saline Lock IV Catheter Type [Left Saline Lock Antecubital] IV Catheter Gauge [Right Wrist 20 ] IV Catheter Gauge [Left 18 Antecubital] Diet Orders Category Date Time Status Diabetes Consistent CHO/Heart Healthy [DIET] Nutrition 06/20/24 Breakfast Active Diagnostics 06/20/24 06/19/24 06/19/24 Range/Units 03:47 22:03 20:53 WBC 10.15 (4.4-10.8) 10^3/uL RBC 3.96 L (4.36-5.78) 10^6/uL Hgb 12.3 L (13.5-17.5) g/dL Hct 36.2 L (40.0-50.0) % MCV 91 (80-95) fL MCH 31.1 (27.0-33.0) pg MCHC 34.0 (32.0-36.0) % RDW 12.5 (11.8-14.1) % Plt Count 267 (130-400) 10^3/uL MPV 9.5 (8.0-11.0) fL Immature Gran % % Neutrophils % % Lymphocytes % % Monocytes % % Eosinophils % % Basophils % % Nucleated RBC % (0.0-0.3) % Absolute Neutrophils (1.2-6.7) 10^3/uL Absolute Lymphocytes (1.2-3.4) 10^3/uL Absolute Monocytes (0.1-0.8) 10^3/uL Absolute Eosinophils (0.0-0.7) 10^3/uL Absolute Basophils (0.0-0.2) 10^3/uL ESR (0-20) mm/hr PT (9.1-11.1) sec INR (0.9-1.1) APTT 45.7 H 28.1 (20.6-30.2) sec VBG Lactate (<or=2.0) mmol/L Sodium 131 L (136-145) mmol/L Potassium 4.1 (3.5-5.1) mmol/L Chloride 96 L (98-107) mmol/L Carbon Dioxide 25.7 (21.0-32.0) mmol/L Anion Gap 9.3 (3-11) mmol/L BUN 14 (7-18) mg/dL Creatinine 1.0 (0.70-1.30) mg/dL Est GFR (CKD-EPI 2020) 85.10 (mL/min/1.73m2) Glucose 346 H (74-106) mg/dL Calcium 8.8 (8.5-10.1) mg/dL Magnesium 1.6 L (1.8-2.4) mg/dL Total Bilirubin 0.5 (0.2-1.0) mg/dL AST 13 L (15-37) U/L ALT 11 L (16-63) U/L Alkaline Phosphatase 93 (46-116) U/L Troponin I (<or=76) ng/L C-Reactive Protein (<or=0.5) mg/dL Total Protein 7.1 (6.4-8.2) g/dL Albumin 1.8 L (3.4-5.0) g/dL TSH Pending COVID-19 Source Nasopharynx SARS-CoV-2 (PCR) Negative (Negative) Influenza Type A (PCR) Negative (Negative) Influenza Type B (PCR) Negative (Negative) RSV (PCR) Negative (Negative) 06/19/24 06/19/24 06/19/24 Range/Units 17:05 15:05 13:45 WBC 11.47 H (4.4-10.8) 10^3/uL RBC 4.07 L (4.36-5.78) 10^6/uL Hgb 12.6 L (13.5-17.5) g/dL Hct 37.4 L (40.0-50.0) % MCV 92 (80-95) fL MCH 31.0 (27.0-33.0) pg MCHC 33.7 (32.0-36.0) % RDW 12.4 (11.8-14.1) % Plt Count 264 (130-400) 10^3/uL MPV 9.7 (8.0-11.0) fL Immature Gran % 0.5 % Neutrophils % 81.6 % Lymphocytes % 9.7 % Monocytes % 7.6 % Eosinophils % 0.3 % Basophils % 0.3 % Nucleated RBC % 0.0 (0.0-0.3) % Absolute Neutrophils 9.36 H (1.2-6.7) 10^3/uL Absolute Lymphocytes 1.11 L (1.2-3.4) 10^3/uL Absolute Monocytes 0.87 H (0.1-0.8) 10^3/uL Absolute Eosinophils 0.03 (0.0-0.7) 10^3/uL Absolute Basophils 0.03 (0.0-0.2) 10^3/uL ESR 96 H (0-20) mm/hr PT 11.9 H (9.1-11.1) sec INR 1.2 H (0.9-1.1) APTT (20.6-30.2) sec VBG Lactate 1.5 (<or=2.0) mmol/L Sodium 132 L (136-145) mmol/L Potassium 4.1 (3.5-5.1) mmol/L Chloride 94 L (98-107) mmol/L Carbon Dioxide 25.8 (21.0-32.0) mmol/L Anion Gap 12.2 H (3-11) mmol/L BUN 16 (7-18) mg/dL Creatinine 1.3 (0.70-1.30) mg/dL Est GFR (CKD-EPI 2020) 62.11 (mL/min/1.73m2) Glucose 330 H (74-106) mg/dL Calcium 9.2 (8.5-10.1) mg/dL Magnesium 1.6 L (1.8-2.4) mg/dL Total Bilirubin 0.6 (0.2-1.0) mg/dL AST 10 L (15-37) U/L ALT 11 L (16-63) U/L Alkaline Phosphatase 100 (46-116) U/L Troponin I Cancelled Cancelled < 4 (<or=76) ng/L C-Reactive Protein > 25.00 H (<or=0.5) mg/dL Total Protein 7.9 (6.4-8.2) g/dL Albumin 2.1 L (3.4-5.0) g/dL TSH COVID-19 Source SARS-CoV-2 (PCR) (Negative) Influenza Type A (PCR) (Negative) Influenza Type B (PCR) (Negative) RSV (PCR) (Negative) 06/19/24 23:15 Blood Culture - Pending Blood 06/19/24 14:16 Blood Culture - Pending Blood Intake and Output - 24 Hour Total 06/19/24 13:16 thru 06/20/24 00:13 Intake Total 50 Output Total 475 Balance -425 Weight 110.8 kg Intake: IV 50 Output: Urine 475 Falls Risk Assessment History of Falls Previous History 06/19/24 13:56 Contributing Factors Impairments 06/19/24 13:56 Ambulatory Aids Uses ambulatory device + 06/19/24 13:56 Tubes/Lines None 06/19/24 13:56 Gait Evaluation W/any additional score 06/19/24 13:56 Cognition No cognitive impairment 06/19/24 13:56 Fall Total Score 68 06/19/24 13:56 Level of Risk High Risk 06/19/24 13:56 Problems (Last Reviewed 06/20/24 @ 01:38 by Catalino Tovar) HTN (hypertension) (Chronic) Chronic pain (Chronic) Abscess of popliteal region (Acute) PAD (peripheral artery disease) (Chronic) Type 2 diabetes mellitus with diabetic polyneuropathy, with long-term current use of insulin (Chronic) Hypothyroidism (Chronic) Chronic deep vein thrombosis (DVT) (Chronic) Benign prostatic hyperplasia (Chronic) Adjustment disorder with mixed anxiety and depressed mood (Chronic) v v v v v v v v v Sending and/or Receiving Nurses: Please use comment section below to note any information pertinent to the patient hand-off not included above. Information / Comments: AAO x 4 male patient w/ Left foot wound that is managed as by HH at home. VSS, currently norberto hep gtt at 18 ml/hr. next PTT due at 0305. patient is awaiting a bed att [facility] care. Report received from: JARVIS Russell
[2024-06-20] MEDS: Heparin in 0.45% NaCl 25,000 UNIT/250 ML BAG 20 UNIT IVINF (05:56)
[2024-06-20] MEDS: Acetaminophen 500 MG TAB PO (06:01)
[2024-06-20] MEDS: Levothyroxine 112 MCG TAB PO (06:02)
[2024-06-20] MEDS: oxyCODONE 5 MG TAB 10 MG PO ×2 (07:42→11:46)
[2024-06-20] MEDS: Pantoprazole 40 MG TABCR PO (08:45)
[2024-06-20] MEDS: Sertraline 50 MG TAB PO (08:46)
[2024-06-20] MEDS: Losartan 25 MG TAB PO (08:46)
[2024-06-20] MEDS: Gabapentin 300 MG CAP PO ×2 (08:46→20:18)
[2024-06-20] MEDS: Tamsulosin 0.4 MG CAPCR PO (08:46)
[2024-06-20] MEDS: Atorvastatin 20 MG TAB PO (08:46)
[2024-06-20] MEDS: Magnesium Oxide 400 MG TAB PO (08:46)
[2024-06-20] MEDS: Normal Saline Flush 10 ML SYR IVP ×2 (08:50→20:34)
[2024-06-20] MEDS: Insulin Aspart 300 UNITS/3 ML PEN SC ×3 (08:50→22:12)
--- NOTE | 2024-06-20 09:31 | PGE_ITS ---
Date of Service Date of service: 06/20/24 Time of Service: 09:31 Assessment and Plan Assessment and plan (1) Sepsis: Status: Acute Assessment and plan: Tachycardia at 93, tachypnea at 21-23 on arrival to [facility], WBC <12 at 11.47 Source knee abcess And as below (2) Abscess of popliteal region: Start date: 06/19/24 Status: Acute Assessment and plan: As per imaging On vancomycin IV and ceftriaxone Blood Cx pending [facility] IR drainage scheduled for 15:30- departure at 13:00- spoke with ANTONIO Hooker this AM for confirmation NPO Heparin drip to be stopped at [facility] prior to procedure Departure scheduled for 13:00 from [facility] Sx consult completed : Please read notes (3) Type 2 diabetes mellitus with diabetic polyneuropathy, with long-term current use of insulin: Status: Chronic Assessment and plan: Gluc and HS with SSI coverage (4) PAD (peripheral artery disease): Status: Chronic Assessment and plan: Continue outpatient management at discharge, no ongoing heparin drip - Eliquis on hold (5) Chronic pain: Status: Chronic Assessment and plan: Continue scheduled APAP and oxycodone and IV morphine PRN - decreased home dosing at d/c (6) Chronic deep vein thrombosis (DVT): Status: Chronic Assessment and plan: On heaprin drip Eliquis at d/c (7) HTN (hypertension): Status: Chronic Assessment and plan: On outpatient medical therapy (8) Benign prostatic hyperplasia: Status: Chronic Assessment and plan: On home medicine regimen (9) Hypothyroidism: Status: Chronic Assessment and plan: On home dose levothyroxine (10) Adjustment disorder with mixed anxiety and depressed mood: Status: Chronic Assessment and plan: Continue outpatient managment - avoid benzodiazepines as the patient is having increased dosing of his chronic opioids Discussed with Dr. Last Subjective Subjective Patient reports: no new complaints, still having pain, shortness of breath, afebrile and other (NPO); denies voiding w/o difficulty, diarrhea, nausea, vomiting or fever Exam Narrative Exam Narrative: Constitutional The patient is bed without acute distress HENMT: Facial structures with normal appearance Eyes: Well aligned, intact ROM Neuro:alert and oriented to self, person, place and situation. No neurological focal deficit Resp:Unlabored breathing, clear lung bilaterally Cardio: regular rhythm, S1, S2, no murmur, capillary refill<3 sec., positive left pedal pulse GI: Abdomen is not distended, soft and non tender, bowel sounds are present Integumentary: distal/external left foot wound w/o drainage, healed left heel wound Extremities: moves all 4 ext, R BKA intact Psych: RASS 0, congruent mood and normal affect. Objective Last Vital Signs Temp 36.8 C 06/20/24 07:23 Pulse 93 H 06/20/24 07:23 Resp 16 06/20/24 07:23 BP 148/76 H 06/20/24 07:23 Pulse Ox 96 06/20/24 07:23 Laboratory Results - last 24 hr 06/19/24 06/19/24 06/19/24 13:45 15:05 17:05 WBC 11.47 H RBC 4.07 L Hgb 12.6 L Hct 37.4 L MCV 92 MCH 31.0 MCHC 33.7 RDW 12.4 Plt Count 264 MPV 9.7 Immature Gran % 0.5 Neutrophils % 81.6 Lymphocytes % 9.7 Monocytes % 7.6 Eosinophils % 0.3 Basophils % 0.3 Nucleated RBC % 0.0 Absolute Neutrophils 9.36 H Absolute Lymphocytes 1.11 L Absolute Monocytes 0.87 H Absolute Eosinophils 0.03 Absolute Basophils 0.03 ESR 96 H PT 11.9 H INR 1.2 H APTT VBG Lactate 1.5 Sodium 132 L Potassium 4.1 Chloride 94 L Carbon Dioxide 25.8 Anion Gap 12.2 H BUN 16 Creatinine 1.3 Est GFR (CKD-EPI 2020) 62.11 Glucose 330 H Calcium 9.2 Magnesium 1.6 L Total Bilirubin 0.6 AST 10 L ALT 11 L Alkaline Phosphatase 100 Troponin I < 4 Cancelled Cancelled C-Reactive Protein > 25.00 H Total Protein 7.9 Albumin 2.1 L TSH COVID-19 Source SARS-CoV-2 (PCR) Influenza Type A (PCR) Influenza Type B (PCR) RSV (PCR) 06/19/24 06/19/24 06/20/24 20:53 22:03 03:47 WBC 10.15 RBC 3.96 L Hgb 12.3 L Hct 36.2 L MCV 91 MCH 31.1 MCHC 34.0 RDW 12.5 Plt Count 267 MPV 9.5 Immature Gran % Neutrophils % Lymphocytes % Monocytes % Eosinophils % Basophils % Nucleated RBC % Absolute Neutrophils Absolute Lymphocytes Absolute Monocytes Absolute Eosinophils Absolute Basophils ESR PT INR APTT 28.1 45.7 H VBG Lactate Sodium 131 L Potassium 4.1 Chloride 96 L Carbon Dioxide 25.7 Anion Gap 9.3 BUN 14 Creatinine 1.0 Est GFR (CKD-EPI 2020) 85.10 Glucose 346 H Calcium 8.8 Magnesium 1.6 L Total Bilirubin 0.5 AST 13 L ALT 11 L Alkaline Phosphatase 93 Troponin I C-Reactive Protein Total Protein 7.1 Albumin 1.8 L TSH 1.32 COVID-19 Source Nasopharynx SARS-CoV-2 (PCR) Negative Influenza Type A (PCR) Negative Influenza Type B (PCR) Negative RSV (PCR) Negative Time Spent with Patient Time Spent with Patient: >50 minutes Time was spent: preparing to see the patient(eg.review tests), obtaining and/or reviewing separately otained hiistory, ordering medications,tests, procedures, referring, communicating with other health behavioral health care coordinator, indepentently interpreting results, counseling the patient and care coordination
--- NOTE | 2024-06-20 09:47 | INITIAL_ITS ---
Date of service: 06/20/24 Time of Service: 09:47 Care Management Initial Assmt Initial Assessment Reason for Hospitalization: abscess of popliteal region left LE Functional Status/Living Situation Patient Presentation: Jeff was transferred to [facility] for a down and back IR drainage procedure for the abscess/hematoma on his LLE so CM was unable to meet with him today. CM will follow up tomorrrow. Town of Residence: [facility] Resides with: Alone Natural Supports: 2 sons : Jason and Raman Employment Status: Retired Instrumental Activities of Daily Living (ADLs): Independent Medications Medication Management: No Issues/Barriers identified Advance Directives Advance Directives: Do you have an Advance Directive: Y 06/19/24 13:41 AD On File at [facility]: Y 06/19/24 13:41 Date Asked 06/19/24 06/19/24 13:41 AD Date Reviewed COLST On File at [facility] COLST Date Scanned Code Status Resuscitation Status Full Code Portal Pt does not currently have a portal and education provided: Yes Insurance Coverage/Financial Issues Insurance: Medicare /[facility] Care Team Visit Care Team Role Provider Type Nicolle Lares APRN MD [facility] STAFF PHYSICIAN Franco Quick DO Primary Care Provider OSTEOPATHIC DOCTOR Jocy Bowser MD Emergency Provider [facility] STAFF PHYSICIAN Catalino Tovar Admit Provider NON-[facility] STAFF PHYSICIAN Attending Provider Discharge Potential Discharge Needs: PCP F/U Appt and Surgical F/U Appt Anticipated Barriers to Discharge: None Identified Patient/Family Education Needs: Review discharge instructions, discuss Ask Me Three Transportation: Private vehicle Plan: Anticipate Jeff will be discharged home, possibly with new home health services, when medically cleared. He will follow up with his PCP, surgeon and plan of care as prescribed and transport with family. CM will follow and continue to assess for discharge planning concerns. Social Determinants of Health Screening Will the Patient Participate in the Screening?: Declined to provide Do you worry about having a steady place to live?: choose not to answer In the past 12 months, have you had to go without electric, gas, oil or water in your home?: choose not to answer Has lack of transportation kept you from medical appointments or from doing things needed for daily living?: choose not to answer Has anyone in your life made you feel unsafe or unsupported?: choose not to answer Do you want help finding or keeping work or a job?: I do not need or want help If for any reason you need help with day-to-day activities such as bathing, preparing meals, shopping, managing finances, etc., do you get the help you need?: I don?t need any help How often do you feel lonely or isolated from those around you?: Never Do you speak a language other than Icelandic at home?: No Does the patient want assistance with any of the above?: No Health Related Social Needs Health related social needs: material hardship(utilities) (Z59.12) [facility], [facility] All Active Problems (Updated 06/20/24 @ 09:42 by Nicolle Lares APRN) Sepsis (Acute) Abscess of popliteal region (Acute) HTN (hypertension) (Chronic) Chronic pain (Chronic) Abscess of popliteal region (Acute) Non-healing ulcer of left foot (Acute) Chronic ulcer of left foot (Acute) Uncontrolled diabetes mellitus with hyperglycemia (Acute) Edema (Acute) Venous (peripheral) insufficiency (Acute) Atherosclerotic PVD with ulceration (Acute) PAD (peripheral artery disease) (Chronic) Ulcer of left foot with fat layer exposed (Acute) Diabetic foot ulcer (Acute) Erectile dysfunction (Acute) Phantom pain following amputation of lower limb (Acute) Type 2 diabetes mellitus with diabetic polyneuropathy, with long-term current use of insulin (Chronic) Memory loss due to medical condition (Acute) Craniopharyngioma (Acute) Chronic osteomyelitis involving right ankle and foot (Acute) Recurrent falls (Acute) Other chronic pain (Acute) Hypothyroidism (Chronic) Hyperplastic polyp of descending colon (Acute) Gastroesophageal reflux disease with esophagitis and hemorrhage (Acute) Gait instability (Acute) Failure to thrive in adult (Acute) Chronic deep vein thrombosis (DVT) (Chronic) Deep vein thrombosis (DVT) of proximal vein of left lower extremity (Acute) Benign prostatic hyperplasia (Chronic) Anemia (Chronic) Adjustment disorder with mixed anxiety and depressed mood (Chronic) Surgical History History of right below knee amputation Status post total replacement of left hip Family History Mother Alcohol use disorder Substance use disorder Father Alcohol use disorder Substance use disorder Cancer Social History Smoking/Tobacco Use Status: Former Tobacco Use tobacco type: smokeless tobacco Tobacco: How many years used: 30 Smokeless tobacco user: snuff Second Hand Exposure: Yes Smoking risk assessment performed?: Yes Alcohol Intake: never Drug use: Never Adopted: No Caregiver/Support person: No Foster care: No Household members: none Housing: apartment Number of Children: 2 number of grandchildren: 1 Communication Needs: None Education Level: high school Do you need help understanding health information?: Rarely current occupation: None Pets and animals: No Sexually active: No Do you think of yourself as: straight/heterosexual Current gender identity: male What is your relationship status?: How often do you talk on the phone with friends or family?: twice per week Do you belong to any clubs or organized social groups?: no Panel score (0-1 are the most socially isolated patients): 0 What type of physical activity do you participate in: additional Details: PT Excercises 2-3 times day Duration: 45-60 minutes/day Frequency: daily Lena/Orthodoxy: Zoroastrian Special lena needs: No Seatbelt use: always Helmet use: No (Never) Drive intox 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
--- NOTE | 2024-06-20 11:10 | W.ORTHOCONSU ---
Date of service: 06/20/24 History of Present Illness Narrative: Patient is a somewhat limited historian in regards to his medical history. He reports that he slipped when transferring from his wheelchair to the couch about 2 weeks ago. He reports that he landed on his butt and denies any injury to his knee/leg in the fall. Unfortunately he spent about 30 minutes trying to push himself up onto the couch with just his left leg which he believes caused posterior knee strain. He reports that he had posterior knee discomfort and swelling which he tried to ignore but was not improving so he eventually presented to the ED yesterday. He reports that the reason for the ED visit was persistent significant soreness. Denies any infectious symptoms. He denies any preexisting knee problems. History of poorly controlled diabetes, chronic wound on the left foot about the head of the 5th metatarsal, left total hip replacement at [facility], left leg DVT on chronic Eliquis, and RIGHT BKA. Significant peripheral neuropathy which patient reports is from brain tumor surgery about 20 years ago. Assessment and Plan Assessment and plan (1) Abscess of popliteal region: Status: Acute Assessment and plan: 63-year-old male with significant complicating medical problems with left posterior knee popliteal area hematoma versus infected hematoma/abscess Extremely high risk for any surgery and wound healing problems with uncontrolled diabetes hemoglobin A1c almost 14, significant peripheral vascular disease, significant neuropathy from brain surgery and neuropathy, diabetic foot wound, and hip replacement on this ipsilateral side with active DVT on blood thinning medication. Reviewed with primary medical team. Hemodynamically stable. No knee joint communication or septic joint. Recommend antibiotics and supportive care. Patient would be best treated at transfer to tertiary care facility with multidisciplinary management with medical, infectious disease, and surgical teams. If transfer is not possible, could arrange interventional radiology aspiration. IR should leave a drain if possible as it may be sufficient to decompress any infected fluid collection. Orthopedic surgery signing off this case. Would defer to general surgery here as usual for isolated soft tissue infection, but they have also agreed patient is likely too high risk for treatment here. If patient becomes unstable or infection involves the knee joint, please reach out. [facility] All Active Problems (Updated 06/20/24 @ 09:42 by Nicolle Lares APRN) Sepsis (Acute) Abscess of popliteal region (Acute) HTN (hypertension) (Chronic) Chronic pain (Chronic) Abscess of popliteal region (Acute) Non-healing ulcer of left foot (Acute) Chronic ulcer of left foot (Acute) Uncontrolled diabetes mellitus with hyperglycemia (Acute) Edema (Acute) Venous (peripheral) insufficiency (Acute) Atherosclerotic PVD with ulceration (Acute) PAD (peripheral artery disease) (Chronic) Ulcer of left foot with fat layer exposed (Acute) Diabetic foot ulcer (Acute) Erectile dysfunction (Acute) Phantom pain following amputation of lower limb (Acute) Type 2 diabetes mellitus with diabetic polyneuropathy, with long-term current use of insulin (Chronic) Memory loss due to medical condition (Acute) Craniopharyngioma (Acute) Chronic osteomyelitis involving right ankle and foot (Acute) Recurrent falls (Acute) Other chronic pain (Acute) Hypothyroidism (Chronic) Hyperplastic polyp of descending colon (Acute) Gastroesophageal reflux disease with esophagitis and hemorrhage (Acute) Gait instability (Acute) Failure to thrive in adult (Acute) Chronic deep vein thrombosis (DVT) (Chronic) Deep vein thrombosis (DVT) of proximal vein of left lower extremity (Acute) Benign prostatic hyperplasia (Chronic) Anemia (Chronic) Adjustment disorder with mixed anxiety and depressed mood (Chronic) Surgical History History of right below knee amputation Status post total replacement of left hip Family History Mother Alcohol use disorder Substance use disorder Father Alcohol use disorder Substance use disorder Cancer Social History Smoking/Tobacco Use Status: Former Tobacco Use tobacco type: smokeless tobacco Tobacco: How many years used: 30 Smokeless tobacco user: snuff Second Hand Exposure: Yes Smoking risk assessment performed?: Yes Alcohol Intake: never Drug use: Never Adopted: No Caregiver/Support person: No Foster care: No Household members: none Housing: apartment Number of Children: 2 number of grandchildren: 1 Communication Needs: None Education Level: high school Do you need help understanding health information?: Rarely current occupation: None Pets and animals: No Sexually active: No Do you think of yourself as: straight/heterosexual Current gender identity: male What is your relationship status?: How often do you talk on the phone with friends or family?: twice per week Do you belong to any clubs or organized social groups?: no Panel score (0-1 are the most socially isolated patients): 0 What type of physical activity do you participate in: additional Details: PT Excercises 2-3 times day Duration: 45-60 minutes/day Frequency: daily Lena/Mandaen: Mu-Ism Special lena needs: No Seatbelt use: always Helmet use: No (Never) Drive intox or ride w/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 Significant knee effusion with no warmth or erythema. No joint line tenderness. Knee motion is limited by significant posterior knee tenderness. Significant tenderness with palpation of the popliteal fossa which is mildly swollen with red/purple discoloration and induration. Significantly decreased sensation to light touch in the foot. Results Last Vital Signs Temp 98.2 F 06/20/24 07:23 Pulse 93 H 06/20/24 07:23 Resp 16 06/20/24 07:23 BP 148/76 H 06/20/24 07:23 Pulse Ox 96 06/20/24 07:23 Labs 06/20/24 03:47 06/20/24 03:47 Labs: Laboratory Results - last 24 hr 06/19/24 06/19/24 06/19/24 13:45 15:05 17:05 WBC 11.47 H RBC 4.07 L Hgb 12.6 L Hct 37.4 L MCV 92 MCH 31.0 MCHC 33.7 RDW 12.4 Plt Count 264 MPV 9.7 Immature Gran % 0.5 Neutrophils % 81.6 Lymphocytes % 9.7 Monocytes % 7.6 Eosinophils % 0.3 Basophils % 0.3 Nucleated RBC % 0.0 Absolute Neutrophils 9.36 H Absolute Lymphocytes 1.11 L Absolute Monocytes 0.87 H Absolute Eosinophils 0.03 Absolute Basophils 0.03 ESR 96 H PT 11.9 H INR 1.2 H APTT VBG Lactate 1.5 Sodium 132 L Potassium 4.1 Chloride 94 L Carbon Dioxide 25.8 Anion Gap 12.2 H BUN 16 Creatinine 1.3 Est GFR (CKD-EPI 2020) 62.11 Glucose 330 H Calcium 9.2 Magnesium 1.6 L Total Bilirubin 0.6 AST 10 L ALT 11 L Alkaline Phosphatase 100 Troponin I < 4 Cancelled Cancelled C-Reactive Protein > 25.00 H Total Protein 7.9 Albumin 2.1 L TSH COVID-19 Source SARS-CoV-2 (PCR) Influenza Type A (PCR) Influenza Type B (PCR) RSV (PCR) 06/19/24 06/19/24 06/20/24 20:53 22:03 03:47 WBC 10.15 RBC 3.96 L Hgb 12.3 L Hct 36.2 L MCV 91 MCH 31.1 MCHC 34.0 RDW 12.5 Plt Count 267 MPV 9.5 Immature Gran % Neutrophils % Lymphocytes % Monocytes % Eosinophils % Basophils % Nucleated RBC % Absolute Neutrophils Absolute Lymphocytes Absolute Monocytes Absolute Eosinophils Absolute Basophils ESR PT INR APTT 28.1 45.7 H VBG Lactate Sodium 131 L Potassium 4.1 Chloride 96 L Carbon Dioxide 25.7 Anion Gap 9.3 BUN 14 Creatinine 1.0 Est GFR (CKD-EPI 2020) 85.10 Glucose 346 H Calcium 8.8 Magnesium 1.6 L Total Bilirubin 0.5 AST 13 L ALT 11 L Alkaline Phosphatase 93 Troponin I C-Reactive Protein Total Protein 7.1 Albumin 1.8 L TSH 1.32 COVID-19 Source Nasopharynx SARS-CoV-2 (PCR) Negative Influenza Type A (PCR) Negative Influenza Type B (PCR) Negative RSV (PCR) Negative
[2024-06-20] MEDS: VANCOMYCIN 1,250 MG in Normal Saline 250 ML 166.667 MG IVPB (11:38)
[2024-06-20 12:50] LABS: PTT Activated 64.2 sec (20.6-30.2)
--- NOTE | 2024-06-20 13:32 | NUR.NOTE ---
Spoke with primary nurse; due to patient being transferred to [facility] for a procedure at 1300, and having two infusions already currently running, I was told to not give the IV acetaminophen. Patient was recently medicated with 10 mg oxycodone for pain management.:
--- NOTE | 2024-06-20 13:45 | NUR.NOTE ---
Nursing Note: Documentation reviewed and in agreement.
[2024-06-20 19:53] LABS: PTT Activated 31.4 sec (20.6-30.2)
[2024-06-20] MEDS: Cholecalciferol (Vitamin D3) 1,000 UNIT TAB 2000 UNITS PO (20:18)
[2024-06-20] MEDS: Heparin in 0.45% NaCl 25,000 UNIT/250 ML BAG 24.5 UNIT IVINF (20:22)
[2024-06-20] MEDS: cefTRIAXone 1 GM/50 ML BAG IVPB (22:13)
[2024-06-21] MEDS: ACETAMINOPHEN 1,000 MG/100 ML BAG 400 MG IVPB ×2 (00:32→06:22)
[2024-06-21 03:14] LABS: PTT Activated 108.7 sec (20.6-30.2)
[2024-06-21 03:30] VITALS: BP 129/67; PULSE 74; RESP 20; TEMP 36.7; O2SAT 95
[2024-06-21] MEDS: Heparin in 0.45% NaCl 25,000 UNIT/250 ML BAG 21 UNIT IVINF (04:22)
[2024-06-21] MEDS: Levothyroxine 112 MCG TAB PO (06:22)
[2024-06-21 06:46] LABS: Abs Immature Grans 0.06 10^3/uL (0.0-0.06); Absolute Basophil Count 0.06 10^3/uL (0.0-0.2); Absolute Eosinophil Count 0.06 10^3/uL (0.0-0.7); Absolute Lymphocyte Count 1.74 10^3/uL (1.2-3.4); Absolute Monocyte Count 0.78 10^3/uL (0.1-0.8); Absolute Neutrophil Count 7.54 10^3/uL (1.2-6.7); Basophils % 0.6 %; Eosinophils % 0.6 %; HCT 34.8 % (40.0-50.0); HGB 11.4 g/dL (13.5-17.5); Immature Grans % 0.6 %; MCH 30.5 pg (27.0-33.0); MCHC 32.8 % (32.0-36.0); MCV 93 fL (80-95); MPV 9.4 fL (8.0-11.0); Monocytes % 7.6 %; Neutrophils % 73.6 %; Platelet Count 276 10^3/uL (130-400); RBC 3.74 10^6/uL (4.36-5.78); RDW 12.7 % (11.8-14.1); RDW-SD 43.6 fL; WBC 10.24 10^3/uL (4.4-10.8)
[2024-06-21 07:08] LABS: ALT 9 U/L (16-63); AST 10 U/L (15-37); Albumin 1.7 g/dL (3.4-5.0); Alkaline Phosphatase 89 U/L (46-116); Anion Gap 4.5 mmol/L (3-11); BUN 14 mg/dL (7-18); Bilirubin, Total 0.4 mg/dL (0.2-1.0); CO2 31.5 mmol/L (21.0-32.0); CREATININE 1.1 mg/dL (0.70-1.30); Chloride 100 mmol/L (98-107); Glucose 265 mg/dL (74-106); Magnesium 1.9 mg/dL (1.8-2.4); Potassium 4.2 mmol/L (3.5-5.1); Sodium 136 mmol/L (136-145)
[2024-06-21 07:50] VITALS: BP 129/70; PULSE 77; RESP 15; TEMP 36.6; O2SAT 97
[2024-06-21] MEDS: Insulin Aspart 300 UNITS/3 ML PEN SC ×4 (08:49→21:42)
--- NOTE | 2024-06-21 09:23 | W.PM.PROGNOT ---
Date of Service Date of service: 06/21/24 Time of Service: 09:23 Assessment and Plan Assessment and plan (1) Sepsis: Status: Acute Assessment and plan: On admission Sepsis criteria met Tachycardia at 93, tachypnea at 21-23 on arrival to [facility], WBC <12 at 11.47 Source knee abscess Resolving And as below (2) Abscess of popliteal region: Start date: 06/19/24 Status: Acute Assessment and plan: As per imaging Continue vancomycin IV and ceftriaxone Blood Cx no growth X 24 hours [facility] IR drainage completed 06/20/2024 Cultures still pending but Gram stain growing GPR- Call micro @[facility] daily to f/u Sx consult completed : Please read notes Orthopedics Dr Riec recommending: for IR to leave drain if possible/ appropriate and Tertiary surgical/orhtos ervices d/t high risk of complication (MACE) (3) Type 2 diabetes mellitus with diabetic polyneuropathy, with long-term current use of insulin: Status: Chronic Assessment and plan: Continue Gluc and HS with SSI coverage (4) PAD (peripheral artery disease): Status: Chronic Assessment and plan: Outpatient management at discharge (5) Chronic pain: Status: Chronic Assessment and plan: Continue scheduled APAP and oxycodone and IV morphine PRN - return to home dosing at d/c (6) Chronic deep vein thrombosis (DVT): Status: Chronic Assessment and plan: Stop heparin drip and resume Eliquis- PCP had increased dosing to 10 mg BID Eliquis at d/c (7) HTN (hypertension): Status: Chronic Assessment and plan: Ongoing outpatient medical therapy (8) Benign prostatic hyperplasia: Status: Chronic Assessment and plan: On home flomax medicine regimen (9) Hypothyroidism: Status: Chronic Assessment and plan: Continue home dose levothyroxine (10) Adjustment disorder with mixed anxiety and depressed mood: Status: Chronic Assessment and plan: Continue outpatient management - Try to avoid benzodiazepines as the patient is having increased dosing of his chronic opioids Discussed with Dr. Last Subjective Subjective Patient reports: no new complaints, still having pain, tolerating liquids well, tolerating a regular diet, voiding w/o difficulty, shortness of breath and afebrile; denies diarrhea, nausea, vomiting or fever Exam Narrative Exam Narrative: 63 yo male patient in bed w/o acute distress, clear lungs, regualr rate and rhythm, S1, S2, ABD non-distended, soft , non-tender , left leg elevated on several pillows.; Improved left knee swelling/effusion, improved left knee motion- SHANTAL to posterior knee patent, decreased pain/tenderness. Significantly improved tenderness with palpation of the popliteal fossa , ongoing decreased sensation to light touch in the foot with distal wound noticed w/o drainage, R BKA intact. Objective Last Vital Signs Temp 36.6 C 06/21/24 07:50 Pulse 77 06/21/24 07:50 Resp 15 06/21/24 07:50 BP 129/70 06/21/24 07:50 Pulse Ox 97 06/21/24 07:50 Laboratory Results - last 24 hr 06/20/24 06/20/24 06/20/24 12:00 18:00 19:32 WBC RBC Hgb Hct MCV MCH MCHC RDW Plt Count MPV Immature Gran % Neutrophils % Lymphocytes % Monocytes % Eosinophils % Basophils % Nucleated RBC % Absolute Neutrophils Absolute Lymphocytes Absolute Monocytes Absolute Eosinophils Absolute Basophils APTT 64.2 H Cancelled 31.4 H Sodium Potassium Chloride Carbon Dioxide Anion Gap BUN Creatinine Est GFR (CKD-EPI 2020) Glucose Calcium Magnesium Total Bilirubin AST ALT Alkaline Phosphatase Total Protein Albumin 06/21/24 06/21/24 02:21 06:30 WBC 10.24 RBC 3.74 L Hgb 11.4 L Hct 34.8 L MCV 93 MCH 30.5 MCHC 32.8 RDW 12.7 Plt Count 276 MPV 9.4 Immature Gran % 0.6 Neutrophils % 73.6 Lymphocytes % 17.0 Monocytes % 7.6 Eosinophils % 0.6 Basophils % 0.6 Nucleated RBC % 0.0 Absolute Neutrophils 7.54 H Absolute Lymphocytes 1.74 Absolute Monocytes 0.78 Absolute Eosinophils 0.06 Absolute Basophils 0.06 APTT 108.7 H* Sodium 136 Potassium 4.2 Chloride 100 Carbon Dioxide 31.5 Anion Gap 4.5 BUN 14 Creatinine 1.1 Est GFR (CKD-EPI 2020) 75.90 Glucose 265 H Calcium 9.0 Magnesium 1.9 Total Bilirubin 0.4 AST 10 L ALT 9 L Alkaline Phosphatase 89 Total Protein 7.0 Albumin 1.7 L Time Spent with Patient Time Spent with Patient: >50 minutes Time was spent: preparing to see the patient(eg.review tests), obtaining and/or reviewing separately otained hiistory, ordering medications,tests, procedures, referring, communicating with other health day care worker, indepentently interpreting results, counseling the patient and care coordination
[2024-06-21] MEDS: Sertraline 50 MG TAB PO (09:55)
[2024-06-21] MEDS: Magnesium Oxide 400 MG TAB PO (09:55)
[2024-06-21] MEDS: Losartan 25 MG TAB PO (09:55)
[2024-06-21] MEDS: Normal Saline Flush 10 ML SYR IVP ×4 (09:55→21:44)
[2024-06-21] MEDS: Pantoprazole 40 MG TABCR PO (09:55)
[2024-06-21] MEDS: Gabapentin 300 MG CAP PO ×3 (09:55→20:16)
[2024-06-21] MEDS: Tamsulosin 0.4 MG CAPCR PO (09:56)
[2024-06-21] MEDS: Atorvastatin 20 MG TAB PO (09:56)
[2024-06-21 10:42] LABS: PTT Activated 64.1 sec (20.6-30.2)
[2024-06-21] MEDS: Apixaban 5 MG TAB 10 MG PO ×2 (11:02→20:16)
[2024-06-21] MEDS: Acetaminophen 325 MG TAB 650 MG PO ×3 (12:58→23:53)
[2024-06-21] MEDS: VANCOMYCIN 1,250 MG in Normal Saline 250 ML 166.667 MG IVPB (12:59)
[2024-06-21] MEDS: oxyCODONE 5 MG TAB 10 MG PO ×2 (13:44→20:15)
[2024-06-21 15:47] VITALS: BP 140/78; PULSE 90; RESP 12; TEMP 37; O2SAT 94
--- NOTE | 2024-06-21 16:46 | CMPROGNOTE_ITS ---
Date of service: 06/21/24 Time of Service: 16:46 Care Management Progress Note Progress Note Text Progress Note Text: Jeff was laying in bed when CM met with him. He was a bit sleepy as he had been medicated for pain. Jeff was admitted with an abscess in the popliteal region of his left knee. He went [place] [facility] [place] for an IR abscess drainage procedure and now has a drain in place. Jeff lives alone in a single family home in [facility]. he is retired and is independent with ADLs. Jeff has 2 sons who are very supportive and who live in [place]. CM asked Jeff about advanced directives and he did not think he had ever completed them. CM offer to assist with the process, but learned that Jeff does, in fact, have ADs on file. CM provided Jeff with a copy for his review in case he felt there were any changes needed. Discharge Potential Discharge Needs: PCP F/U Appt and Surgical F/U Appt Anticipated Barriers to Discharge: None Identified Patient/Family Education Needs: Review discharge instructions, discuss Ask Me Three Transportation: Private vehicle Plan: Anticipate Jeff will be discharged home with a resumption of home health services for RN for wound care. He will follow up with his PCP, surgeon and plan of care and transport with family. CM will follow and continue to assess for discharge needs. Social Determinants of Health Screening Will the Patient Participate in the Screening?: Declined to provide Do you worry about having a steady place to live?: choose not to answer In the past 12 months, have you had to go without electric, gas, oil or water in your home?: choose not to answer Has lack of transportation kept you from medical appointments or from doing things needed for daily living?: choose not to answer Has anyone in your life made you feel unsafe or unsupported?: choose not to answer Do you want help finding or keeping work or a job?: I do not need or want help If for any reason you need help with day-to-day activities such as bathing, preparing meals, shopping, managing finances, etc., do you get the help you need?: I don?t need any help How often do you feel lonely or isolated from those around you?: Never Do you speak a language other than Portuguese at home?: No Does the patient want assistance with any of the above?: No Health Related Social Needs Health related social needs: material hardship(utilities) (Z59.12)
[2024-06-21 19:17] VITALS: BP 136/66; PULSE 101; RESP 14; TEMP 37.2; O2SAT 93
[2024-06-21] MEDS: Cholecalciferol (Vitamin D3) 1,000 UNIT TAB 2000 UNITS PO (20:16)
[2024-06-21] MEDS: cefTRIAXone 1 GM/50 ML BAG IVPB (21:43)
[2024-06-21] MEDS: MORPHine 4 MG/ML SYR IVP (21:48)
[2024-06-21 23:04] VITALS: BP 134/75; PULSE 96; RESP 15; TEMP 37; O2SAT 92
[2024-06-21] MEDS: VANCOMYCIN 1,250 MG in Normal Saline 250 ML 167 MG IVPB (23:54)
[2024-06-22 03:13] VITALS: BP 140/74; PULSE 96; TEMP 36.5; O2SAT 93
[2024-06-22 06:32] LABS: HCT 34.6 % (40.0-50.0); HGB 11.6 g/dL (13.5-17.5); MCH 31.2 pg (27.0-33.0); MCHC 33.5 % (32.0-36.0); MCV 93 fL (80-95); MPV 9.3 fL (8.0-11.0); Platelet Count 283 10^3/uL (130-400); RBC 3.72 10^6/uL (4.36-5.78); RDW 12.7 % (11.8-14.1); RDW-SD 43.5 fL
[2024-06-22 07:26] LABS: ALT 8 U/L (16-63); AST 11 U/L (15-37); Albumin 1.7 g/dL (3.4-5.0); Alkaline Phosphatase 92 U/L (46-116); Anion Gap 6.7 mmol/L (3-11); BUN 10 mg/dL (7-18); Bilirubin, Total 0.4 mg/dL (0.2-1.0); CO2 28.3 mmol/L (21.0-32.0); Calcium 8.7 mg/dL (8.5-10.1); Chloride 100 mmol/L (98-107); Glucose 363 mg/dL (74-106); Potassium 4.2 mmol/L (3.5-5.1); Sodium 135 mmol/L (136-145)
[2024-06-22 07:38] VITALS: BP 139/81; PULSE 86; RESP 14; TEMP 37.3; O2SAT 93
[2024-06-22] MEDS: Pantoprazole 40 MG TABCR PO (07:52)
[2024-06-22] MEDS: Losartan 25 MG TAB PO (07:52)
[2024-06-22] MEDS: Apixaban 5 MG TAB 10 MG PO ×2 (07:52→21:01)
[2024-06-22] MEDS: Magnesium Oxide 400 MG TAB PO (07:52)
[2024-06-22] MEDS: Levothyroxine 112 MCG TAB PO (07:52)
[2024-06-22] MEDS: Tamsulosin 0.4 MG CAPCR PO (07:53)
[2024-06-22] MEDS: Atorvastatin 20 MG TAB PO (07:53)
[2024-06-22] MEDS: Sertraline 50 MG TAB PO (07:53)
[2024-06-22] MEDS: Gabapentin 300 MG CAP PO ×3 (07:53→21:01)
[2024-06-22] MEDS: Acetaminophen 325 MG TAB 650 MG PO ×3 (07:53→21:00)
[2024-06-22] MEDS: Normal Saline Flush 10 ML SYR IVP ×3 (07:54→21:02)
[2024-06-22] MEDS: Insulin Aspart 300 UNITS/3 ML PEN SC ×4 (07:54→21:01)
[2024-06-22] MEDS: Methocarbamol 500 MG TAB PO (09:43)
--- NOTE | 2024-06-22 10:04 | PGE_ITS ---
Date of Service Date of service: 06/22/24 Time of Service: 10:04 Assessment and Plan Assessment and plan (1) Sepsis: Status: Resolved Assessment and plan: Resolving has remained hemodynamically stable and afebrile Source knee abscess which as been drained, continue antibiotic therapy blood cultures negative (2) Abscess of popliteal region: Status: Acute Assessment and plan: Continue vancomycin IV and ceftriaxone while cultures pending. Blood Cx no growth to date [facility] IR drainage completed 06/20/2024, drain remains intact continue to monitor drainage. Draining small amounts of brown drainage see nursing output records. Cultures still pending but Gram stain growing GPR- Call micro @[facility] daily to f/u follow inflammatory markers (3) Type 2 diabetes mellitus with diabetic polyneuropathy, with long-term current use of insulin: Status: Chronic Assessment and plan: A1C 13.9 Continue blood sugar checks and HS with SSI coverage blood sugars poorly controlled with checks in the 300's will add basal insulin, splitting dose to 20 units twice daily adjusting as needed metformin was placed on hold after receiving IV contrast CT. consider resuming (4) PAD (peripheral artery disease): Status: Chronic Assessment and plan: Outpatient management at discharge is fully anticoagulated (5) Chronic pain: Status: Chronic Assessment and plan: Continue scheduled APAP and oxycodone PRN - start weaning to home dosing now infection treated and drained. can add toradol consider increasing gabapentin if needed. (6) Chronic deep vein thrombosis (DVT): Status: Chronic Assessment and plan: continue eliquis (7) HTN (hypertension): Status: Chronic Assessment and plan: blood pressure 130's/70's continue home medication, adjust as needed (8) Benign prostatic hyperplasia: Status: Chronic Assessment and plan: On home flomax medicine regimen (9) Hypothyroidism: Status: Chronic Assessment and plan: Continue home dose levothyroxine TSH 1.32 (10) Adjustment disorder with mixed anxiety and depressed mood: Status: Chronic Assessment and plan: Continue outpatient management, sertraline and gabapentin - avoid benzodiazepines as the patient is having increased dosing of his chronic opioids Discussed with Dr. Last Subjective Subjective Patient reports: no new complaints, tolerating liquids well, tolerating a regular diet and afebrile Exam Narrative Exam Narrative: Elderly male chronically ill-appearing in no acute distress head is atraumatic eyes nonicteric noninjected poor dentition neck full range of motion respirations even and unlabored cardiovascular regular rate and rhythm below the knee amputation on the right with stump well-healed abrasion to lateral aspect of left foot heel with no surrounding erythema SHANTAL drain to posterior left lower extremity intact draining scant amount of brown liquid. Firm tender mass palpated posterior lower left thigh. Does not appear fluctuant. No surrounding erythema or warmth appreciated neurologic he is awake alert oriented no focal deficits psychiatric expansive animated Limited judgment and insight Objective Last Vital Signs Temp 37.3 C 06/22/24 07:38 Pulse 86 06/22/24 07:38 Resp 14 06/22/24 07:38 BP 139/81 06/22/24 07:38 Pulse Ox 93 06/22/24 07:38 Laboratory Results - last 24 hr 06/21/24 06/22/24 10:20 06:15 WBC 11.70 H RBC 3.72 L Hgb 11.6 L Hct 34.6 L MCV 93 MCH 31.2 MCHC 33.5 RDW 12.7 Plt Count 283 MPV 9.3 APTT 64.1 H Sodium 135 L Potassium 4.2 Chloride 100 Carbon Dioxide 28.3 Anion Gap 6.7 BUN 10 Creatinine 1.0 Est GFR (CKD-EPI 2020) 85.10 Glucose 363 H Calcium 8.7 Total Bilirubin 0.4 AST 11 L ALT 8 L Alkaline Phosphatase 92 Total Protein 7.0 Albumin 1.7 L Time Spent with Patient Time Spent with Patient: 35-49 minutes Time was spent: preparing to see the patient(eg.review tests), obtaining and/or reviewing separately otained hiistory, ordering medications,tests, procedures, indepentently interpreting results and counseling the patient
--- NOTE | 2024-06-22 10:11 | IN_ITS ---
PT Notes Visit Reasons: Abscess left popliteal with hematoma, NIDDM, PVD.. Inpatient Physical Therapy Evaluation Date: [06/22/2024] Referring Doctor: Nicolle Lares PT Orders: PT CONSULT: [Evaluation for assistive device] Precautions: [Safety, PBD, standard]Right BKA Patient Profile/Admitting Diagnosis: []Jeff is a 63-year-old male with recent fall and strain of his left lower extremity resulting in hematoma over the popliteal area, admitted on 06/19/2024 with abscess of the popliteal area had drainage done at [facility] yesterday and returned for further care. He has a drain in place in the area of the abscess of the left post thigh. Pt. has history of right BKA and his prosthesis is in the room however the under sleeve stocking was not to be found today. Patient states that he has at home a wheelchair, walker, and walking sticks which he has been independent with us ing. According to Jeff prior to admission he was having problems with his left knee for a while and suspect he may not have been ambulating. Patient also intermittently loses his train of thought and question his reporting of his history. Patient states that he is willing to try with physical therapy however he expresses quite a bit of pain. We do discussed with him the importance of moving and he does understand or at least acknowledges that he knows he needs to get up and move and is willing to try however we are unable to do a full functional evaluation because of inability to get past sitting at edge of bed. PMHX: PFSH All Active Problems (Updated 06/20/24 @ 09:42 by Nicolle Lares APRN) Sepsis (Acute) Abscess of popliteal region (Acute) HTN (hypertension) (Chronic) Chronic pain (Chronic) Abscess of popliteal region (Acute) Non-healing ulcer of left foot (Acute) Chronic ulcer of left foot (Acute) Uncontrolled diabetes mellitus with hyperglycemia (Acute) Edema (Acute) Venous (peripheral) insufficiency (Acute) Atherosclerotic PVD with ulceration (Acute) PAD (peripheral artery disease) (Chronic) Ulcer of left foot with fat layer exposed (Acute) Diabetic foot ulcer (Acute) Erectile dysfunction (Acute) Phantom pain following amputation of lower limb (Acute) Type 2 diabetes mellitus with diabetic polyneuropathy, with long-term current use of insulin (Chronic) Memory loss due to medical condition (Acute) Craniopharyngioma (Acute) Chronic osteomyelitis involving right ankle and foot (Acute) Recurrent falls (Acute) Other chronic pain (Acute) Hypothyroidism (Chronic) Hyperplastic polyp of descending colon (Acute) Gastroesophageal reflux disease with esophagitis and hemorrhage (Acute) Gait instability (Acute) Failure to thrive in adult (Acute) Chronic deep vein thrombosis (DVT) (Chronic) Deep vein thrombosis (DVT) of proximal vein of left lower extremity (Acute) Benign prostatic hyperplasia (Chronic) Anemia (Chronic) Adjustment disorder with mixed anxiety and depressed mood (Chronic) Surgical History History of right below knee amputation Status post total replacement of left hip [] Social History/Home Situation: []Pt lives alone in [facility]. He reports that he is indep at baseline using prosthesis on right LE. He states that he has single floor living and has access to wheelchair, walking sticks, walker and has been managing this quite well. I am unable to determine how long it has b een since he is actually walked given the fact that he does report he has had this problem behind his knee for some time he cannot describe how long. Current Functional Limitations: [] Patient is in bed unable to straighten left lower extremity, he does not have his prosthesis on his right and is missing the compression stockings that he utilizes when using this prosthesis. It is also to be noted that I did not see any foot wear for his left. Equipment Owned/DME: [] Walker, wheelchair, walking sticks Subjective: [] Patient reports that he is not never experienced this much pain and he does not understand what is wrong. We discussed that it is somewhat typical to have pain due to the degree of pressure from the swelling and I suspect he has increased pain due to not straightening the knee for some time as well as not putting leg down into the dependent position. We have advised him that he does need to perform frequent change of position, frequent when pumping of the ankle, frequent working towards full knee extension while he is lying in bed. Also discussed with him and nursing staff that he needs to at least sit at the edge of the bed with frequency being the priority. He does state that the pain eases when he is back in bed we discussed this with him that it would be important for him to sit at the edge of bed with nursing staff and as able to pivot transfers to utilize the commode. Objective: General Observation: Patient is in bed, he has a healing out ulcer on the left lateral foot, he has a drain of the popliteal area of the left knee in place, he has an IV port that is not connected at the moment. Mental Status: A and O x 4 however intermittently throughout the session patient seems to get anxious and loses his focus and train of thought. He does have some difficulty recalling that he has a DVT. Patient requires significant encouragement throughout the whole session to participate. Pain: 10/10 left posterior lateral knee, this area is also firm to palpate Vital Signs: Monitored by nursing staff ROM: Right Upper Extremity: WFL Left Upper Extremity: WFL Right Lower Extremity: Right BKA, hip WFL Left Lower Extremity: Patient resistant to moving knee he is able to demonstrate knee extension -20 and knee flexion to 90 After we work with him with knee extension gradual having his ankle propped and allowing the knee to go into extension we are able to gain about 15 degrees from the start position of -35 while he is lying in bed. He expresses extreme pain and inability to perform knee extension. Dorsi flexion -10 Strength: Right Upper Extremity: WFL Left Upper Extremity: WFL Right Lower Extremity: Right BKA hip flexion 4/5, hip abduction 3/5 Left Lower Extremity: DF 3/5, PF unable to test, sitting off edge of bed knee extension to minus/5 unwilling to straighten knee out able to get to -35 and this is where we have discussion of him working on this as well as question how long he has not been standing or working on knee extension on the left. Sensation: Patient has decreased sensation left distal LE and increased pain increase sensitivity posterior left knee Bed Mobility/Transfers: Readjusting and moving in bed with great difficulty but able to perform independently with bed rails. Supine to sit: Mod assist of 1 Sit to supine: With supervision and use of bed rail but patient able to maneuver independently Due to pain unable to progress patient any further although based on his baseline status he should be able to do a pivot transfer yet he has been unable to bear weight through that left LE. I do discussed this with nursing staff I do believe it is important for him to work with his mobility as best that they can while he is in the hospital with at least sitting at the edge of the bed the flexion and extension and he can work on knee extension while he is lying in bed and also advised frequent ankle pumping up and down, leg lifts as tolerated. Gait: Unable to assess as patient refused to progress any further than sitting at edge of bed. Balance: Unable to assess as patient refused to progress any further than sitting at edge of bed. Static Sitting: [] Dynamic Sitting: [] Static Standing: [] Dynamic Standing: [] Special Tests: Mobility Limitations Standardized Measure [facility] AM-PAC 6 clicks Basic Mobility Inpatient Short Form: Raw Score: 8 Standardized Score: 4.04 CMS Score: 86.62 Informed Consent/Education: Patient instructed in purpose of PT consult and plan of care. Assessment: Patient is a 63year old male referred to physical therapy services with the diagnosis of abscess of popliteal region with surgical drain, history of right BKA, diabetes. Patient presents with clinical signs and symptoms consistent with abscess of popliteal region with limited mobility, as demonstrated by the following impairment level findings: Pain, decreased ROM l eft knee, ankle, decreased strength left LE, decreased ability to transfer and maintain mobility, altered gait, balance. Patient requires significant encouragement to participate we repeatedly explained to him the importance of keeping his mobility, achieving full left knee extension and working on getting that leg into a dependent position as well as working on weightbearing through the left LE. We are limited today due to his level of discomfort of the left posterior lateral knee and that he reports this is the most that he can do in does want to get better but does not believe he can do anything more now. Impairments are contributing to the following functional limitations: AMPAC score. Patient is assessed as a Moderate 65280 based on the following: History: Patient lives alone, BKA, although reports independent with ADLs question how long he has been limited Examination: As outlined above Presentation: Evolving Decision Making: Moderate Goals: Goals X1 week 1. Supine-Sit independent 2. Sit-Supine independent 3. Sit-Stand independent 4. Stand-Sit independent 5. Bed-Chair independent 6. Chair-Bed independent 7. Gait able to assess and based on this we will set appropriate goals 8. Stairs N/A 9. Independent with home exercise program 10. Balance able to don and doff independent prosthesis, able to stand and sit with at least fair balance but will need to assess further Therapeutic procedures (24079i[1]): Instruction in therapeutic exercises to develop strength and endurance, range of motion and flexibility. ? instruction and review:? Provided skilled instruction in proper exercise performance: ?? Provided skilled manual cues to facilitate proper muscle recruitment and/or movement?pattern: Assisted patient in bed with support of lower leg and working gradually to achieve knee extension with instruction to prop lower leg and allow gravity to work towards knee extension every 1/2 hour for about 5 minutes. Instructed patient to perform ankle pumps, circles every 1/2 hour or more In bed patient to flex and extend hip x 5 every 1/2 hour As able with assist of nursing staff and I did discuss this with nursing staff with nurse Garcia is much as they are able to have somebody attend with him to have him sit at the edge of the bed with his left LE in a dependent position working on knee flexion and extension on the left. We do perform x 5 reps today he is quite limited with his knee ROM approximately 35?90 and does not like having pressure of the posterior thigh on the bed. Ideally this would be great if he could do it every hour but he will need somebody with him in order to do this. Also strongly recommending that he participate in stand pivot transfers for use of the commode. Plan of Care/Treatment Plan: 1-2x/day, 7 days/week x 1 week. Plan of care has been reviewed with the [employer] providing the service under Physical Therapy direction. Initiate Physical Therapy intervention for ROM ,strengthening, bed mobility, transfers, gait, stairs, balance training, use of assistive device. DISCHARGE RECOMMENDATIONS: At this junction right now he would be unable to go home although if his baseline status is how he describes and he participates in the above outlined activities he should be able to go home with PT services, but as his status is today and unable to assess his ability for gait and transfers he will require a SNF for continued rehab. [x] Home with services [PT] [x] SNF for continued rehabilitation [] TREATMENT CODE/TIME: [id number] 10:25-11:00 35'
[2024-06-22] MEDS: Insulin Glargine 300 UNITS/3 ML PEN 20 UNITS SC ×2 (11:16→21:45)
[2024-06-22 11:33] VITALS: BP 130/83; PULSE 89; RESP 15; TEMP 37; O2SAT 94
[2024-06-22] MEDS: Ketorolac 15 MG/ML VIAL IVP (11:40)
[2024-06-22] MEDS: VANCOMYCIN 1,250 MG in Normal Saline 250 ML 167 MG IVPB (12:50)
--- NOTE | 2024-06-22 13:31 | PDOC.CMPRO ---
Date of service: 06/22/24 Time of Service: 13:31 Care Management Progress Note Progress Note Text Progress Note Text: Jeff was sitting up in bed finishing his lunch when CM met with him. He had requested assistance with updating his Advanced Directives yesterday but declined to do so today when CM offered. He stated that he has been having a lot of pain with repositioning and is comfortable at the moment. CM will offer again tomorrow. Discharge Potential Discharge Needs: PCP F/U Appt and Surgical F/U Appt Anticipated Barriers to Discharge: None Identified Patient/Family Education Needs: Review discharge instructions, discuss Ask Me Three Transportation: Private vehicle Plan: Anticipate Jeff will be discharged home with a resumption of home health services for RN for wound care. He will follow up with his PCP, surgeon and plan of care and transport with family. CM will follow and continue to assess for discharge needs. Social Determinants of Health Screening Will the Patient Participate in the Screening?: Declined to provide Do you worry about having a steady place to live?: choose not to answer In the past 12 months, have you had to go without electric, gas, oil or water in your home?: choose not to answer Has lack of transportation kept you from medical appointments or from doing things needed for daily living?: choose not to answer Has anyone in your life made you feel unsafe or unsupported?: choose not to answer Do you want help finding or keeping work or a job?: I do not need or want help If for any reason you need help with day-to-day activities such as bathing, preparing meals, shopping, managing finances, etc., do you get the help you need?: I don?t need any help How often do you feel lonely or isolated from those around you?: Never Do you speak a language other than Indonesian at home?: No Does the patient want assistance with any of the above?: No Health Related Social Needs Health related social needs: material hardship(utilities) (Z59.12)
[2024-06-22 15:28] VITALS: BP 119/66; PULSE 86; RESP 14; TEMP 37; O2SAT 94
--- NOTE | 2024-06-22 16:55 | WOUNDCONS_ITS ---
Date of service: 06/22/24 Time of Service: 16:55 Wound Initial Evaluation Narrative Narrative: Pt is a 63 year old male who was admitted with a left popliteal abscess.A surgical drain is currently in place. He also has an area on the left lateral foot that is covered with yellow thick eschar. His current wbc is 11.7, blood sugars have been reading in the mid 200's to the mid 300's. He is an insulin dependent diabetic that is poorly controlled. He also is a right above the knee amputee. He has a current dvt in his left leg and pheripheral vascular disease. Sepsis (Acute) Abscess of popliteal region (Acute) HTN (hypertension) (Chronic) Chronic pain (Chronic) Abscess of popliteal region (Acute) Non-healing ulcer of left foot (Acute) Chronic ulcer of left foot (Acute) Uncontrolled diabetes mellitus with hyperglycemia (Acute) Edema (Acute) Venous (peripheral) insufficiency (Acute) Atherosclerotic PVD with ulceration (Acute) PAD (peripheral artery disease) (Chronic) Ulcer of left foot with fat layer exposed (Acute) Diabetic foot ulcer (Acute) Erectile dysfunction (Acute) Phantom pain following amputation of lower limb (Acute) Type 2 diabetes mellitus with diabetic polyneuropathy, with long-term current use of insulin (Chronic) Memory loss due to medical condition (Acute) Craniopharyngioma (Acute) Chronic osteomyelitis involving right ankle and foot (Acute) Recurrent falls (Acute) Other chronic pain (Acute) Hypothyroidism (Chronic) Hyperplastic polyp of descending colon (Acute) Gastroesophageal reflux disease with esophagitis and hemorrhage (Acute) Gait instability (Acute) Failure to thrive in adult (Acute) Chronic deep vein thrombosis (DVT) (Chronic) Deep vein thrombosis (DVT) of proximal vein of left lower extremity (Acute) Benign prostatic hyperplasia (Chronic) Anemia (Chronic) Adjustment disorder with mixed anxiety and depressed mood (Chronic) Wound Left Lateral Foot: Wound Type: Diabetic Ulcer (Most likely developed from pressure from footwear as it has callus type tissue covering the wound.) and Partial Thickness Wound General Appearance: Necrotic (covered in yellow slough) Wound Bed Greatest Portion: Yellow (Slough) Wound Bed Lesser Portion: Black (Eschar) Wound Surrounding Tissue Appearance: Blanched/Dull Percent of Wound Bed Granulated/Red: 90 (Open wound,post debridement. posterior portion of wound covered in thin blanched tissue) Percent of Wound Bed Slough/Yellow: 5 (post debridement) Percent of Wound Bed Eschar/Black: 5 (post debridement) Wound Length: 0.47 in Wound Width: 1.34 in Wound Depth: 0.08 in Wound Drainage Amount: Moderate (bloody) Wound Drainage Odor: None/Absent Wound Drainage Description: Bloody Wound Topical Solution/Irrigant: Enzymatic Irrigant (Skin Integrity) Wound Debridement Method: Gauze, Conservative Sharp (currette) and Other (Debrisoft sponge) Wound Debridement Result: Healthy Tissue Revealed Wound Debridement Amount of Tissue Removed: Moderate (Yellow thick eschar, nonviable tissue) Circulation, Sensation, Motion Sensation Description: Other (Diabetic neuropathy) Skin Temperature: Warm Skin Color: Pale GUERITA Comment:: Deferred due to dvt, popliteal abscess Pain Pain Level: 0 Pain Scale Used: Visual Analog Scale 0-10 Wound Summary Wound Summary: Thick yellow nonviable callused tissue removed from area. Healthy tissue revealed. Photo Photo: Treatment/Dressing Change Topicals/Ointments: Medihoney Cleanse With: Cleanser with Surfactant (Skin Integrity) and Debrisoft Dressing Types: Foam (Optifoam) and Skin Prep Nutrition Education Reviewed Nutrition Education: Yes Note: in service educator Recomendation Recomendation:: The patient's blood sugars have been running in the mid 200-300's. I would recommend optimizing his diabetic insulin coverage for lower blood sugars to assist with wound healing. Lateral left foot 1. Cleanse the area with Skin Integrity, allow to dwell for 2 minutes. Pat dry. 2. Apply a pea sized amount of MediHoney to the wound. 3. Apply skin prep to the periwound skin. 4. Apply a 2x2 Optifoam dressing to the site. 5. Change every 3 days and prn. 6. Assess the heel of the foot for worsening bogginess (deep tissue injury). 7. Paramount the left heel with betadine daily. Apply foam boot to the left foot. Treatment Time Time Total Time Spent with Patient: 40 minutes
[2024-06-22 19:32] VITALS: BP 150/72; PULSE 90; RESP 14; TEMP 37.2; O2SAT 95
[2024-06-22] MEDS: Cholecalciferol (Vitamin D3) 1,000 UNIT TAB 2000 UNITS PO (21:01)
[2024-06-22] MEDS: cefTRIAXone 1 GM/50 ML BAG IVPB (21:44)
[2024-06-22 23:06] LABS: Vancomycin, Trough 13.4 ug/mL (10.0-20.0)
[2024-06-22 23:58] VITALS: BP 150/78; PULSE 91; RESP 18; TEMP 36.7; O2SAT 96
[2024-06-23] MEDS: VANCOMYCIN 1,250 MG in Normal Saline 250 ML 167 MG IVPB (00:11)
[2024-06-23 03:39] VITALS: BP 148/81; PULSE 84; RESP 15; TEMP 36.6; O2SAT 95
[2024-06-23] MEDS: Levothyroxine 112 MCG TAB PO (05:37)
[2024-06-23] MEDS: Docusate Sodium 100 MG CAP PO (05:57)
[2024-06-23] MEDS: oxyCODONE 5 MG TAB PO (05:57)
[2024-06-23 07:18] VITALS: BP 147/77; PULSE 84; RESP 18; TEMP 37.1; O2SAT 93
[2024-06-23] MEDS: Apixaban 5 MG TAB 10 MG PO ×2 (08:08→20:59)
[2024-06-23] MEDS: Losartan 25 MG TAB PO (08:10)
[2024-06-23] MEDS: Acetaminophen 325 MG TAB 650 MG PO (08:11)
[2024-06-23] MEDS: Sertraline 50 MG TAB PO (08:13)
[2024-06-23] MEDS: Tamsulosin 0.4 MG CAPCR PO (08:13)
[2024-06-23] MEDS: Atorvastatin 20 MG TAB PO (08:13)
[2024-06-23] MEDS: Pantoprazole 40 MG TABCR PO (08:14)
[2024-06-23] MEDS: Gabapentin 300 MG CAP PO ×3 (08:14→20:59)
[2024-06-23] MEDS: Insulin Aspart 300 UNITS/3 ML PEN SC ×4 (08:29→21:51)
--- NOTE | 2024-06-23 08:32 | POCOE_ITS ---
Date of service: 06/23/24 Time of Service: 08:15 Assessment and Plan Assessment and plan (1) Chronic ulcer of left foot: Status: Acute (2) Non-healing ulcer of left foot: Status: Acute (3) PAD (peripheral artery disease): Status: Chronic (4) Ulcer of left foot with fat layer exposed: Status: Acute (5) Diabetic foot ulcer: Status: Acute (6) Type 2 diabetes mellitus with diabetic polyneuropathy, with long-term current use of insulin: Status: Chronic Assessment and plan: Patient was seen bedside and evaluated. The left foot ulcer appears to be healing well at this time. No erythema, no edema, no drainage and no malodor noted. Ulcer measures 9 mm x 8 mm x 3 mm. Dressings were applied as follows: Cleanse the wound with wound cleanse. Pat dried. Medihoney and Optifoam dressing were applied. Nursing may continue dressing changes every other day. No surgical intervention is planned or indicated at this time as there is no periwound erythema edema drainage or malodor. Ulcer does remain at risk for worsening infection and amputation. I discussed this with the patient who verbalized understanding. Prevalon boot was reapplied to the left foot. Please continue. Patient may protected weight-bear to the left lower extremity with a surgical shoe. Patient to follow-up with podiatry within 1 to 2 weeks of discharge. History of Present Illness Narrative: 63-year-old diabetic male patient with uncontrolled diabetes, most recent A1c of 13.9 on 06/17/2024, admitted for infected popliteal abscess. He is status post I&D at [facility] and is now here for antibiotic management. Podiatry consulted for left lower extremity ulceration. Patient denies pain to the ulcer of the left foot however does report pain with moving the left lower extremity since his fall a few weeks ago. No other pedal complaints at this time. Consults Requesting physician: Nicolle Lares Review of Systems Musculoskeletal Comments: Status post healed BKA right Integumentary/Breasts Comments: Left foot ulcer Neurologic Comments: Loss of protective sensation to the left PFSH All Active Problems Abscess of popliteal region (Acute) HTN (hypertension) (Chronic) Chronic pain (Chronic) Abscess of popliteal region (Acute) Non-healing ulcer of left foot (Acute) Chronic ulcer of left foot (Acute) Uncontrolled diabetes mellitus with hyperglycemia (Acute) Edema (Acute) Venous (peripheral) insufficiency (Acute) Atherosclerotic PVD with ulceration (Acute) PAD (peripheral artery disease) (Chronic) Ulcer of left foot with fat layer exposed (Acute) Diabetic foot ulcer (Acute) Erectile dysfunction (Acute) Phantom pain following amputation of lower limb (Acute) Type 2 diabetes mellitus with diabetic polyneuropathy, with long-term current use of insulin (Chronic) Memory loss due to medical condition (Acute) Craniopharyngioma (Acute) Chronic osteomyelitis involving right ankle and foot (Acute) Recurrent falls (Acute) Other chronic pain (Acute) Hypothyroidism (Chronic) Hyperplastic polyp of descending colon (Acute) Gastroesophageal reflux disease with esophagitis and hemorrhage (Acute) Gait instability (Acute) Failure to thrive in adult (Acute) Chronic deep vein thrombosis (DVT) (Chronic) Deep vein thrombosis (DVT) of proximal vein of left lower extremity (Acute) Benign prostatic hyperplasia (Chronic) Anemia (Chronic) Adjustment disorder with mixed anxiety and depressed mood (Chronic) Surgical History Status post total replacement of left hip History of right below knee amputation Family History Mother Alcohol use disorder Substance use disorder Father Alcohol use disorder Substance use disorder Cancer Social History Smoking/Tobacco Use Status: Former Tobacco Use tobacco type: smokeless tobacco Tobacco: How many years used: 30 Smokeless tobacco user: snuff Second Hand Exposure: Yes Smoking risk assessment performed?: Yes Alcohol Intake: never Drug use: Never Adopted: No Caregiver/Support person: No Foster care: No Household members: none Housing: apartment Number of Children: 2 number of grandchildren: 1 Communication Needs: None Education Level: high school Do you need help understanding health information?: Rarely current occupation: None Pets and animals: No Sexually active: No Do you think of yourself as: straight/heterosexual Current gender identity: male What is your relationship status?: How often do you talk on the phone with friends or family?: twice per week Do you belong to any clubs or organized social groups?: no Panel score (0-1 are the most socially isolated patients): 0 What type of physical activity do you participate in: additional Details: PT Excercises 2-3 times day Duration: 45-60 minutes/day Frequency: daily Lena/Spiritism: Spiritism Special lena needs: No Seatbelt use: always Helmet use: No (Never) Drive intox or ride w/intox auto transport driver: No Exam Extrem Other: Left lower extremity physical exam: Derm: Full-thickness ulcer noted to the lateral aspect of the left fifth metatarsal head measuring 9 mm x 8 mm x 3 mm, the base is necrotic/hypergranular, no periwound erythema, no edema, very mild sanguinous drainage/Medihoney crusting noted to the inner layer of dressings, no proximal streaking or lymphangitis no probe to bone or no crepitus no bogginess no fluctuation. Vascular: Pulses are nonpalpable to DP, PT to the left. CFT delayed, hair growth absent. MSK: Status post BKA to the right lower extremity. Left foot without pain. Does report pain to the left lower extremity since his fall. Neuro: Light touch sensation absent to the left foot Results Last Vital Signs Temp 98.8 F 06/23/24 07:18 Pulse 84 06/23/24 07:18 Resp 18 06/23/24 07:18 BP 147/77 H 06/23/24 07:18 Pulse Ox 93 06/23/24 07:18 Labs 06/22/24 06:15 06/22/24 06:15 Labs: Laboratory Results - last 24 hr 06/22/24 10:40 Vancomycin Trough 13.4
[2024-06-23] MEDS: Normal Saline Flush 10 ML SYR IVP ×6 (08:35→21:00)
[2024-06-23] MEDS: Insulin Glargine 300 UNITS/3 ML PEN 20 UNITS SC (08:58)
[2024-06-23] MEDS: Magnesium Oxide 400 MG TAB PO (09:02)
--- NOTE | 2024-06-23 09:13 | CMPROGNOTE_ITS ---
Date of service: 06/23/24 Time of Service: 09:13 Care Management Progress Note Progress Note Text Progress Note Text: Jeff was sitting up in a chair when CM met with him. It is the first time he has been OOB when CM visited. He appeared to be in good spirits and engaged well with CM. Over the weekend Jeff complained of severe pain and did not want to get up. He stated that he is feeling better today. He still has some induration about his left knee but is working on the exercises he was given by PT. He informed CM that this afternoon he hopes to be able to don his prosthesis and go for a walk. Discharge Potential Discharge Needs: PCP F/U Appt and Surgical F/U Appt Anticipated Barriers to Discharge: None Identified Patient/Family Education Needs: Review discharge instructions, discuss Ask Me Three Transportation: Private vehicle Plan: Anticipate Jeff will be discharged home with a resumption of home health services for RN for wound care. He will follow up with his PCP, surgeon and plan of care and transport with family. CM will follow and continue to assess for discharge needs. Social Determinants of Health Screening Will the Patient Participate in the Screening?: Declined to provide Do you worry about having a steady place to live?: choose not to answer In the past 12 months, have you had to go without electric, gas, oil or water in your home?: choose not to answer Has lack of transportation kept you from medical appointments or from doing things needed for daily living?: choose not to answer Has anyone in your life made you feel unsafe or unsupported?: choose not to answer Do you want help finding or keeping work or a job?: I do not need or want help If for any reason you need help with day-to-day activities such as bathing, preparing meals, shopping, managing finances, etc., do you get the help you need?: I don?t need any help How often do you feel lonely or isolated from those around you?: Never Do you speak a language other than Bulgarian at home?: No Does the patient want assistance with any of the above?: No Health Related Social Needs Health related social needs: material hardship(utilities) (Z59.12)
[2024-06-23] MEDS: Ketorolac 15 MG/ML VIAL IVP ×2 (09:24→17:30)
[2024-06-23] MEDS: Milk of Magnesia 30 ML CUP PO (09:25)
[2024-06-23] MEDS: Polyethylene Glycol 3350 17 GM PACKET PO (09:25)
--- NOTE | 2024-06-23 10:01 | W.PM.PROGNOT ---
Date of Service Date of service: 06/23/24 Time of Service: 10:01 Assessment and Plan Assessment and plan (1) Sepsis: Status: Resolved Assessment and plan: Resolving has remained hemodynamically stable and afebrile Source knee abscess which as been drained, continue antibiotic therapy blood cultures negative (2) Abscess of popliteal region: Status: Acute Assessment and plan: Cultures still pending but Gram stain growing GPR- Call micro @[facility] daily to f/u 06/23: Growing Staph aureus -sensitivity not available ( spoke to micro no routine mecA gene testing except for bacteremia) Continue vancomycin IV and ceftriaxone while cultures pending. Blood Cx no growth to date [facility] IR drainage completed 06/20/2024, drain remains intact continue to monitor drainage. Draining small amounts of brown drainage see nursing output records. Will need a 2-week f/u w IR @ [facility] Follow inflammatory markers: CRP now 15 from > 25 on admission in durated areas to (3) Type 2 diabetes mellitus with diabetic polyneuropathy, with long-term current use of insulin: Status: Chronic Assessment and plan: A1C 13.9 Ongoing blood sugar readings and HS with SSI coverage blood sugars poorly controlled with checks in the 256- 340 Increase basal insulin to 25 units twice daily adjusting as needed metformin was placed on hold after receiving IV contrast CT. Consider resuming once basal insulin adjustments completed (4) PAD (peripheral artery disease): Status: Chronic Assessment and plan: Outpatient management at discharge Fully anticoagulated re: DVT (5) Chronic pain: Status: Chronic Assessment and plan: Continueincreased dosing of scheduled APAP and oxycodone PRN - start weaning to home dosing now infection treated and drained. Continue decreased dosing of PRN Toradol Consider increasing gabapentin if needed for better neuropathic pain control. (6) Chronic deep vein thrombosis (DVT): Status: Chronic Assessment and plan: Continue eliquis 10 mg X 14 doses then 5 mg BID and f/u outpatient Monitor for bleeding (7) HTN (hypertension): Status: Chronic Assessment and plan: Continue home medication, adjust as needed (8) Benign prostatic hyperplasia: Status: Chronic Assessment and plan: On home flomax medicine regimen (9) Hypothyroidism: Status: Chronic Assessment and plan: Continue home dose levothyroxine TSH 1.32 (10) Wound of left foot: Status: Acute Assessment and plan: Podiatry consult completed: Please read notes Dressing and care as per podiatry orders (11) Adjustment disorder with mixed anxiety and depressed mood: Status: Chronic Assessment and plan: Continue outpatient management, sertraline and gabapentin - avoid benzodiazepines as the patient is having increased dosing of his chronic opioids Discussed with Dr. Last Subjective Subjective Patient reports: no new complaints, pain is less, tolerating liquids well, tolerating a regular diet, voiding w/o difficulty, bowel movement and afebrile; denies diarrhea, blood in stool, nausea, vomiting, shortness of breath or fever Exam Narrative Exam Narrative: Elderly male chronically ill-appearing in no acute distress ,A&O x4 w/o neurologic focal deficits , eyes non-icteric noninjected, poor dentition, respirations unlabored , clear lungs bialterally, cardiovascular regular rate and rhythm, S1, S2; below the knee amputation on the right with stump well-healed; healing abrasion to lateral aspect of left foot heel with no surrounding erythema; SHANTAL drain to posterior left lower extremity intact draining amount of brown muddy-liquid. Firm tender mass palpated posterior lower left thigh, lateral calf no fluctuance, L knee flexion 60d degrees- improving from initial. No surrounding erythema psychiatric expansive animated Limited judgment and insight Objective Last Vital Signs Temp 37.1 C 06/23/24 07:18 Pulse 84 06/23/24 07:18 Resp 18 06/23/24 07:18 BP 147/77 H 06/23/24 07:18 Pulse Ox 93 06/23/24 07:18 Laboratory Results - last 24 hr 06/22/24 10:40 Vancomycin Trough 13.4 Time Spent with Patient Time Spent with Patient: >50 minutes Time was spent: preparing to see the patient(eg.review tests), obtaining and/or reviewing separately otained hiistory, ordering medications,tests, procedures, referring, communicating with other health critical care technician, indepentently interpreting results, counseling the patient and care coordination
--- NOTE | 2024-06-23 10:27 | PTTR_ITS ---
PT Notes Visit Reasons: Abscess left Popliteal with Hematoma, NIDDM,PVD, Inpatient Physical Therapy Treatment Note [facility] Date: 06/23/24 SUBJECTIVE: Jeff reports that he quickly needs to use the commode. C/o pain in left posterior knee. PM session: I would like to actually go for a walk. Still missing his prosthetic sock and left shoe. Nurse was going to look into it. Perhaps it got left at home. OBJECTIVE: []? VITALS: ? monitored by nsg. Therapeutic Activities ([id number]): Direct one-on-one instruction in dynamic activities to improve functional performance. ? BED MOBILITY/TRANSFERS? PM SESSION:? Supine-sit: min A of 1 and SBA of 1?seated in recliner ? Sit- stand: Max A x2. ? Mod A of 1? Stand-sit: Max A x2 ? Min A of 1? Bed-Chair: Max A of 2? Provided skilled cues and instruction on performance and technique thro ughout. GAIT?PM SESSION: ? Assistive Device: FWW ?FWW ? Weight bearing: FWB FWB Assist: Max A x2?Mod A of 1 ? Distance:? pivot transfer? wt shifting L<>R? Deviation: right BKA.? performed AROM of B knee into flex/ext x approx 8-10 reps. Jeff was transferred bed to bedside commode via pivot transfer. Required assistance with self care. He was able to stand x approx 5 min while he was being cleaned up. Commode then pulled away and recliner chair pulled in under him. Therapeutic exercise- ([id number]) Performed QS 2x5 holding 5 sec. SLR x5, AP x20. ROM into flex/ext while sitting. Provided cues for proper quad engagement. ASSESSMENT:?tolerated session well. Needs to have a plan verbalized to him every step of the way. Has a tendency to pull on walker when transferring sit to stand. Does well with direction. Unable to find his socks for stump and therefore unable to use his prosthetic limb in am. I suspect his transfers would be better once he is able to get limb on for balance purposes. PM session: did well. Independent with donning prosthetic limb. Working wt shifting. Not ready to take steps yet due to pain in posterior left knee. PLAN: will continue to work strength and functional mobility following PT POC TREATMENT CODE/TIME: 25 min in am 30 min in pm. [id number] DISCHARGE RECOMMENDATION: home with HH PT
[2024-06-23 10:44] LABS: Abs Immature Grans 0.07 10^3/uL (0.0-0.06); Absolute Basophil Count 0.06 10^3/uL (0.0-0.2); Absolute Eosinophil Count 0.13 10^3/uL (0.0-0.7); Absolute Lymphocyte Count 1.71 10^3/uL (1.2-3.4); Absolute Monocyte Count 0.75 10^3/uL (0.1-0.8); Absolute Neutrophil Count 9.22 10^3/uL (1.2-6.7); Basophils % 0.5 %; Eosinophils % 1.1 %; HCT 36.7 % (40.0-50.0); HGB 12.1 g/dL (13.5-17.5); Immature Grans % 0.6 %; Lymphocytes % 14.3 %; MCH 30.7 pg (27.0-33.0); MCV 93 fL (80-95); MPV 9.3 fL (8.0-11.0); Monocytes % 6.3 %; Neutrophils % 77.2 %; Platelet Count 301 10^3/uL (130-400); RBC 3.94 10^6/uL (4.36-5.78); RDW 12.5 % (11.8-14.1); WBC 11.94 10^3/uL (4.4-10.8)
[2024-06-23 11:02] LABS: Anion Gap 6.3 mmol/L (3-11); BUN 10 mg/dL (7-18); CO2 27.7 mmol/L (21.0-32.0); CREATININE 1.2 mg/dL (0.70-1.30); Calcium 8.9 mg/dL (8.5-10.1); Chloride 100 mmol/L (98-107); Estimated GFR 68.38 (mL/min/1.73m2); Glucose 277 mg/dL (74-106); Sodium 134 mmol/L (136-145)
[2024-06-23 11:05] LABS: C-Reactive Protein 15.45 mg/dL (<or=0.5)
[2024-06-23 11:23] VITALS: BP 117/70; PULSE 90; RESP 17; TEMP 36.4; O2SAT 94
[2024-06-23] MEDS: VANCOMYCIN 1,250 MG in Normal Saline 250 ML 250 MG IVPB (13:40)
[2024-06-23] MEDS: Acetaminophen 500 MG TAB 1000 MG PO ×2 (14:09→21:50)
--- NOTE | 2024-06-23 14:30 | NUR.NOTE ---
Nursing Note: Documentation by Ry Henriquez, student CARDIOTHORACIC ANESTHESIA TECHNICIAN, reviewed and approved.
[2024-06-23 15:15] VITALS: BP 156/84; PULSE 82; RESP 18; TEMP 37.3; O2SAT 97
[2024-06-23 19:31] VITALS: BP 150/79; PULSE 94; RESP 18; TEMP 37.5; O2SAT 94
[2024-06-23] MEDS: Cholecalciferol (Vitamin D3) 1,000 UNIT TAB 2000 UNITS PO (20:59)
[2024-06-23] MEDS: Insulin Glargine 300 UNITS/3 ML PEN 25 UNITS SC (21:00)
[2024-06-23] MEDS: cefTRIAXone 1 GM/50 ML BAG IVPB (21:50)
[2024-06-23] MEDS: Nystatin POWDER 15 GM JAR TP (23:16)
[2024-06-23 23:28] VITALS: BP 142/75; PULSE 92; RESP 16; TEMP 37; O2SAT 93
[2024-06-24] MEDS: VANCOMYCIN 1,250 MG in Normal Saline 250 ML 166.667 MG IVPB ×2 (01:36→11:32)
[2024-06-24 03:15] VITALS: BP 151/75; PULSE 69; RESP 16; TEMP 36.8; O2SAT 93
[2024-06-24] MEDS: Levothyroxine 112 MCG TAB PO (06:32)
[2024-06-24 07:19] LABS: Anion Gap 2.9 mmol/L (3-11); BUN 12 mg/dL (7-18); CO2 31.1 mmol/L (21.0-32.0); CREATININE 1.1 mg/dL (0.70-1.30); Calcium 8.9 mg/dL (8.5-10.1); Chloride 100 mmol/L (98-107); Glucose 329 mg/dL (74-106); Potassium 4.4 mmol/L (3.5-5.1); Sodium 134 mmol/L (136-145)
[2024-06-24] MEDS: Acetaminophen 500 MG TAB 1000 MG PO ×3 (08:12→20:45)
[2024-06-24] MEDS: Pantoprazole 40 MG TABCR PO (08:13)
[2024-06-24] MEDS: Tamsulosin 0.4 MG CAPCR PO (08:13)
[2024-06-24] MEDS: Losartan 25 MG TAB PO (08:13)
[2024-06-24] MEDS: Sertraline 50 MG TAB PO (08:13)
[2024-06-24] MEDS: Atorvastatin 20 MG TAB PO (08:13)
[2024-06-24] MEDS: Apixaban 5 MG TAB 10 MG PO ×2 (08:13→20:44)
[2024-06-24] MEDS: Gabapentin 300 MG CAP PO ×3 (08:13→20:46)
[2024-06-24] MEDS: Magnesium Oxide 400 MG TAB PO (08:14)
[2024-06-24] MEDS: Normal Saline Flush 10 ML SYR IVP (08:14)
[2024-06-24] MEDS: Insulin Aspart 300 UNITS/3 ML PEN SC ×4 (08:14→21:21)
[2024-06-24] MEDS: Insulin Glargine 300 UNITS/3 ML PEN 25 UNITS SC ×2 (08:16→21:20)
[2024-06-24] MEDS: Nystatin POWDER 15 GM JAR TP ×2 (08:18→13:33)
[2024-06-24 08:20] VITALS: BP 135/83; PULSE 78; RESP 16; TEMP 36.9; O2SAT 98
[2024-06-24] MEDS: Ketorolac 15 MG/ML VIAL IVP ×2 (09:12→16:52)
--- NOTE | 2024-06-24 09:55 | PDOC.CMPRO ---
Date of service: 06/24/24 Time of Service: 09:55 Care Management Progress Note Progress Note Text Progress Note Text: Jeff had music therapy this morning and appeared to be sleeping comfortably each time CM attempted to meet with him thereafter. No changes have been made therefor CM did not wake him. Jeff was admitted on 06/19/24 due to a popliteal abscess, which needed to be drained by [facility]. He is being treated with IV Vanco and Rocephin and cultures are pending, ABX course to follow. He will discharge home with resumption of [facility] RN (add PT) when medically ready for discharge. Discharge Potential Discharge Needs: PCP F/U Appt and Surgical F/U Appt Anticipated Barriers to Discharge: None Identified Patient/Family Education Needs: Review discharge instructions, discuss Ask Me Three Transportation: Private vehicle Plan: Anticipate, Jeff will be discharged home with a resumption of [facility] RN for wound care (add PT). He will follow up with his PCP, surgeon and plan of care and transport with family. CM will follow and continue to assess for discharge needs. Social Determinants of Health Screening Will the Patient Participate in the Screening?: Declined to provide Do you worry about having a steady place to live?: choose not to answer In the past 12 months, have you had to go without electric, gas, oil or water in your home?: choose not to answer Has lack of transportation kept you from medical appointments or from doing things needed for daily living?: choose not to answer Has anyone in your life made you feel unsafe or unsupported?: choose not to answer Do you want help finding or keeping work or a job?: I do not need or want help If for any reason you need help with day-to-day activities such as bathing, preparing meals, shopping, managing finances, etc., do you get the help you need?: I don?t need any help How often do you feel lonely or isolated from those around you?: Never Do you speak a language other than Irish at home?: No Does the patient want assistance with any of the above?: No Health Related Social Needs Health related social needs: material hardship(utilities) (Z59.12)
[2024-06-24 11:35] VITALS: BP 145/75; PULSE 78; RESP 18; TEMP 36.6; O2SAT 94
--- NOTE | 2024-06-24 12:15 | PT.INTREAT ---
PT Notes Visit Reasons: Abscess left Popliteal with Hematoma, NIDDM,PVD, Inpatient Physical Therapy Treatment Note [facility] Date: 06/24/2024 SUBJECTIVE:Pt reports he still does not have is prosthetic socks here . Pt reports he is having pain along insertion of hamstring when seated at edge of bed. OBJECTIVE: Supine in bed agreeable to participate IV infusing, Drain and bandage to left calf in place. ? VITALS: ? monitored by nsg. Therapeutic Activities ([id number]): Direct one-on-one instruction in dynamic activities to improve functional performance. ? BED MOBILITY/TRANSFERS? AM Session PM SESSION:? Supine-sit: min A of 1 ? seated in recliner ? Sit-stand: Min A of 1 from elevated surface ? Mod A of 1?x 3 trials from chair ? Stand-sit: Min A of 1 from elevated surface? Min A of 1? x 3 trials? Bed-Chair: Min A of 1 with FWW step turn with prosthetic on? chair to /from commode: min A FWW with prosth sit to supine: not performed in am Provided skilled cues and instruction on performance and technique throughout. ? Therapeutic exercise- ([id number]) Performed QS 2x10 holding 5 sec. SLR x5, AP x20., GS x10 Prolonged calf stretch with sheet 5 x20 second hold. Provided cues for proper quad engagement. ASSESSMENT:Pt tolerated prolonged stretch to increase left DF with sheet. Pt limited to step turn transfer with FWW and prosthetic d/t lack of appropriate sock ply and potential for impaired skin integrity. Pt requiring increased assistance with sit to stand from lower surface of chair and commode in the PM session. He continues to report a stretching sensation with WB on LLE. Pt is encouraged to place foot flat to reduce risk of further impairment . Pt tolerate stretch to calf with use of sheet with knee flexion . Pt unable to achieve terminal knee extension for full hamstring and gastroch stretch at this time. PLAN: will continue to work strength and functional mobility following PT POC TREATMENT CODE/TIME:am session [id number], [id number]/ [id number] pm session: [id number] DISCHARGE RECOMMENDATION: home with HH PT
[2024-06-24] MEDS: Methocarbamol 500 MG TAB PO (14:43)
[2024-06-24 15:53] VITALS: BP 150/74; PULSE 84; RESP 18; TEMP 37.1; O2SAT 95
--- NOTE | 2024-06-24 16:24 | PDOC.HHF2F_ITS ---
Home Health Referral Home Health Orders Clinical synopsis of why skilled professionals are needed: This 63-year-old male patient with a PMHx of right BKA secondary to non-healing diabetic ulcer on the right foot with chronic phantom pain on oxycodone, chronically on Eliquis for chronic DVT, insulin dependent DM II, HTN presented to the ED on 06/19/24 for evaluation of worsening pain, swelling, and decreased pulses of his left lower extremity s/p falling from his couch. No reported chills, fevers, chest pain , GI or Gu symptoms. Work-up in the ED was positive for WBC 11.4, Hbg 12.6 w/o thrombocytopenia, glucose of 330. Imaging resulted in finding of left lower extremity hematoma over the popliteal area VS a large abscess. The patient was admitted to the medical surgical floor for heparin bridging, IV vancomycin and ceftriaxone pending [place] [facility] for incision and drainage of abscess. [facility] SHANTAL drain to placement completed as per orthopedics, Dr. Rice recommendation with further management at tertiary care facility. Drainage specimen collected grew MRSA and gram positive rods. The patient remained afebrile and hemodynamically stable and will be discharged home on Bactrim DS. IR [facility] to reach out to patient for drain check and imaging; recommendation for dressing change every 7 days to be completed by home health nursing; home health physical therapy on discharge. The patient will have to follow-up with PCP with 7 days of discharge. Recommendation on PCP follow-up: Renal function testing Eliquis dosing follow-up [facility] f/u appointment to be called to patient for 7-10 business day( Spoke to IR JARVIS Jaquez this PM) Discussed with Dr. Renteria Registered Nurse: Check all that apply Instruct on new or changed medication(s)/assess compliance: Ordered Assess for exacerbation of medical condition, instruct patient/caregivers on signs and symptoms to report for early detection: Ordered Administer injection as no willing or able caregiver and patient is unable to administer due to: SHANTAL drain dressing change and ongoing education on emptying Physical Therapist: Check all that apply Increase strength & endurance for safe mobility at home: Ordered To design/establish home maintenance program: Ordered Fall reduction therapy program for patient with history of frequent falls: Ordered Home safety evaluation and teaching/gait training including stair management (if applicable): Ordered Encounter Date and Reason: I certify that a FTF encounter for this patient was performed on June 24, 2024 and that such encounter was related to the primary reason the patient requires home health services. The encounter was conducted in the following manner: * By me as the certifying physician, POTATO PANCAKE FRIER, PA or * By an inpatient physician, POTATO PANCAKE FRIER or PA during an inpatient stay who communicated findings to me, Certification And Authentication I certify that I composed the above information based on my clinical judgment relating to this patient's medical condition and, if applicable, clinical findings communicated to me by the NPP or inpatient physician who performed the FTF encounter. Name of Provider that will be monitoring home health services: Franco Quick
--- NOTE | 2024-06-24 16:25 | CHAPLAIN ---
Jeff was resting in the recliner when I visited. He was pleasant and easily engaged in conversation.He shared some personal history, telling me that he grew up in [place], attended the [employer] there as a kid with his family and has an aunt who is nun. Other family members are born-again Christians and Jeff said he asked them not to engage him in conversations about confucianism. 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 After he and his , Jeff said he found housing through the state and that's what brought him to [facility]. He said he's adjusting and learning to like it here. He continues to have health issues and setbacks he said, but he added that he's working hard to remain optimistic. His sons know that he is here.
--- NOTE | 2024-06-24 17:19 | DSE_ITS ---
Date of service: 06/26/24 Time of Service: 12:00 DS: Diagnosis Discharge Diagnosis (1) Sepsis: Status: Resolved (2) Abscess of popliteal region: Status: Acute (3) Type 2 diabetes mellitus with diabetic polyneuropathy, with long-term current use of insulin: Status: Chronic (4) PAD (peripheral artery disease): Status: Chronic (5) Chronic pain: Status: Chronic (6) Chronic deep vein thrombosis (DVT): Status: Chronic (7) HTN (hypertension): Status: Chronic (8) Benign prostatic hyperplasia: Status: Chronic (9) Hypothyroidism: Status: Chronic (10) Wound of left foot: Status: Acute (11) Adjustment disorder with mixed anxiety and depressed mood: Status: Chronic Discharge Plan Disposition Patient Disposition: Penitentiary Facility(SNF) Condition: Improving Discharge Details Reason For Visit: Abscess left Popliteal with Hematoma, NIDDM,PVD, Admit Date/Time: 06/19/24 22:51 Admit Provider: Catalino Tovar Attending Provider: Catalino Tovar Primary Care Provider: Franco Quick Hospital Course Hospital Course: This 63-year-old male patient with a PMHx of right BKA secondary to non-healing diabetic ulcer on the right foot with chronic phantom pain on oxycodone, chronically on Eliquis for chronic DVT, insulin dependent DM II, HTN presented to the ED on 06/19/24 for evaluation of worsening pain, swelling, and decreased pulses of his left lower extremity s/p falling from his couch. No reported chills, fevers, chest pain , GI or Gu symptoms. Work-up in the ED was positive for WBC 11.4, Hbg 12.6 w/o thrombocytopenia, glucose of 330. Imaging resulted in finding of left lower extremity hematoma over the popliteal area VS a large abscess. The patient was admitted to the medical surgical floor for heparin bridging, IV vancomycin and ceftriaxone pending [place] [facility] for incision and drainage of abscess. [facility] [place] drain to placement completed as per orthopedics, Dr. Rice recommendation with further management at tertiary care facility. Drainage specimen collected grew MRSA and normal martine-GPR. Left foot wound evaluated by Dr. Buck, label fuser tender w/o findings of infection. The patient remained afebrile and hemodynamically stable and will be discharged home on Bactrim DS. [place] [facility] [place] reach out to patient for drain check and imaging; recommendation for dressing change every 7 days to be completed by home health nursing; home health physical therapy on discharge. The patient will have to follow-up with PCP with 7 days of discharge. Recommendation on PCP follow-up: Renal function testing Eliquis dosing follow-up [facility] f/u appointment to be called to patient for 7-10 business day ( Spoke to IR JARVIS Jaquez on 06/24/24 PM) Podiatry referral Discussed with Dr. Renteria Home Meds and New Rx's Prescriptions: New Eliquis 5 mg Tablet 5 mg PO BID Qty: 60 0RF Rx Instructions: Take 10 mg twice a day for( tonight, on 06/25, 06/26, 06/27) 7 doses Then on 06/28 start taking 5 mg twice a day until seen by your PCP acetaminophen 500 mg Tablet 1,000 mg PO Q6H Qty: 40 0RF insulin glargine [Lantus Solostar U-100 Insulin] 100 unit/mL (3 mL) Insulin Pen 25 unit subcut BID Qty: 15 0RF sulfamethoxazole-trimethoprim 800-160 mg Tablet 1 tab PO BID Qty: 18 0RF Continued atorvastatin 20 mg tablet 20 mg PO DAILY Qty: 90 3RF cholecalciferol (vitamin D3) 50 mcg (2,000 unit) capsule 50 mcg PO QHS Qty: 90 3RF gabapentin 300 mg capsule 300 mg PO TID Qty: 270 3RF insulin aspart U-100 [Novolog FlexPen U-100 Insulin] 100 unit/mL (3 mL) insulin pen 18 unit subcut TID Qty: 15 3RF Rx Instructions: with meals levothyroxine 112 mcg capsule 112 mcg PO DAILY Qty: 90 3RF losartan 25 mg tablet 25 mg PO DAILY Qty: 90 3RF magnesium oxide 400 mg (241.3 mg magnesium) tablet 400 mg PO DAILY Qty: 90 3RF metformin 500 mg tablet 1,000 mg PO BIDWMEAL Qty: 180 3RF Rx Instructions: With breakfast and dinner methocarbamol 500 mg tablet 500 mg PO Q8H PRN Qty: 90 3RF pantoprazole 40 mg tablet,delayed release (DR/EC) 40 mg PO .before breakfast Qty: 90 3RF sertraline 50 mg tablet 50 mg PO DAILY Qty: 90 3RF tamsulosin 0.4 mg capsule 0.4 mg PO DAILY Qty: 90 3RF oxycodone 5 mg tablet 5 mg PO TID MDD 15 mg PRN (Reason: pain) Qty: 15 0RF (DME) FreeStyle Hao 2 Sensor Kit See Rx Instructions .ROUTE .MEDSUPPLY Qty: 1 11RF Rx Instructions: As directed, test TID and prn (DME) FreeStyle Hao 2 [place] Misc See Rx Instructions .ROUTE .MEDSUPPLY Qty: 1 0RF Rx Instructions: As directed, TID and prn sildenafil 100 mg tablet 100 mg PO DAILY PRN (Reason: sexual activity) Qty: 30 3RF Rx Instructions: administer 30 minutes to 4 hours before activity (DME) diabetic shoes See Rx Instructions .Route .MEDSUPPLY Qty: 1 0RF Rx Instructions: As directed Santyl 250 unit/gram ointment 1 applic topical DAILY Qty: 90 0RF Rx Instructions: Ulcer measures 1.1 x 0.9 x 0.3 cm (DME) pen needle, diabetic 31 gauge x 5/16 needle See Rx Instructions .Route Rx Instructions: As directed (DME) blood-glucose meter [FreeStyle [place] Lite] Kit See Rx Instructions .Route Rx Instructions: As directed blood glucose test stripts 1 ea XX DIRECTED PRN (DME) lancets [FreeStyle Lancets] 28 gauge misc See Rx Instructions .Route Rx Instructions: As directed No Action apixaban 5 mg tablet 5 mg PO BID Qty: 180 3RF insulin glargine 100 unit/mL (3 mL) insulin pen 55 unit subcut QHS Qty: 15 6RF acetaminophen 500 mg capsule 500 mg PO Q6H Discharge Instructions Stand Alone Forms: Nursing Discharge Form Referrals: [facility] [Provider Group] - 07/04/24 10:00 am Franco Quick DO [Primary Care Provider] - (Follow-up with 7 days of discharge ) Activity:: Activity as Tolerated Equipment/Supplies:: Walker Diet:: heart helathy diabetic DS: Summary Time Spent with Patient providing and/or coordinating discharge services: Greater than 30 minutes Status at Discharge Functional status at discharge: uses cane/walker Overall status at discharge: patient is progressing back to baseline Mental Status: mental status grossly normal Speech and Movement: speech and movement normal Mood: expansive and labile mood Affect: normal affect Quality:SDOH Health Related Social Needs: Health related social needs material hardship(giancarlo theodore) (Z59.12) Health related social needs details Noted Exam Narrative Exam Narrative: 63 yo chronically ill-appearing male patient looking older than stated age , in no acute distress ,A&O x4 w/o neurologic focal deficits , eyes non-icteric noninjected, respirations are unlabored , clear lungs bilaterally, cardiovascular regular rate and rhythm, S1, S2; below the knee amputation on the right with stump well-healed; healing abrasion to lateral aspect of left foot heel with no surrounding erythema; SHANTAL drain to posterior left lower extremity intact draining amount of brown muddy-liquid, reduced size firm tender mass palpated posterior lower left thigh, lateral calf no fluctuance, L knee flexion 90 degrees- improved. No surrounding erythema psychiatric expansive animated limited judgment and insight Psych Mental Status: mental status grossly normal Speech and Movement: speech and movement normal Mood: expansive and labile mood Affect: normal affect Attitude: cooperative Thought Process: circumstantial Insight: poor Judgment: limited DS: Data Vitals/I&O Vitals and I&O: Vital Signs Temperature 37.1 C 06/24/24 15:53 Temperature Source Temporal Artery Scan 06/24/24 15:53 Pulse 84 06/24/24 15:53 Pulse Rhythm Regular 06/20/24 05:10 Pulse 95 H 06/19/24 22:40 Respiratory Rate 18 06/24/24 15:53 Respiratory Effort Normal 06/20/24 05:10 Respiratory Depth Normal 06/20/24 05:10 Respiratory Pattern Normal 06/20/24 05:10 Blood Pressure 150/74 H 06/24/24 15:53 Blood Pressure Mean 102 06/19/24 22:15 Pulse Oximetry 95 06/24/24 15:53 Oxygen Delivery Method Room Air 06/24/24 15:53 Oxygen Flow Rate 0 06/24/24 15:53 Pain Level 0 06/24/24 16:52 Comment Notifying RN on BP 06/23/24 07:18 Intake & Output 06/23/24 06/24/24 06/24/24 23:59 11:59 23:59 Intake Total 80 / 810 505 / 755 250 / 755 Output Total 625 / 1250 640 / 690 50 / 690 Balance -545 / -440 -135 / 65 200 / 65 Weight 111.7 kg Intake: IV 55 / 305 505 / 755 250 / 755 Injectate / Left Back Output: Drainage / 50 40 / 90 50 / 90 Left Back 25 / 50 Left Posterior Knee 40 / 90 50 / 90 Urine 600 / 1200 600 / 600 Other: Urine Color Yellow Yellow Yellow Urine Appearance Clear Clear Clear Urine Odor Normal Comment urine mixed with stool, unable to measure Stool Size Large Stool Characteristics Formed Brown Data Completed and Pending Labs on day of discharge: Labs from last 24 hours 06/24/24 06:39 Sodium 134 L Potassium 4.4 Chloride 100 Carbon Dioxide 31.1 Anion Gap 2.9 L BUN 12 Creatinine 1.1 Est GFR (CKD-EPI 2020) 75.90 Glucose 329 H Calcium 8.9 Preliminary micro results at discharge 06/19/24 23:15 Blood Culture - Preliminary Blood NO GROWTH 96 HOURS PFSH All Active Problems (Updated 06/24/24 @ 18:36 by Nicolle Lares APRN) Discharge planning issues (Acute) Wound of left foot (Acute) Abscess of popliteal region (Acute) HTN (hypertension) (Chronic) Chronic pain (Chronic) Abscess of popliteal region (Acute) Non-healing ulcer of left foot (Acute) Chronic ulcer of left foot (Acute) Uncontrolled diabetes mellitus with hyperglycemia (Acute) Edema (Acute) Venous (peripheral) insufficiency (Acute) Atherosclerotic PVD with ulceration (Acute) PAD (peripheral artery disease) (Chronic) Ulcer of left foot with fat layer exposed (Acute) Diabetic foot ulcer (Acute) Erectile dysfunction (Acute) Phantom pain following amputation of lower limb (Acute) Type 2 diabetes mellitus with diabetic polyneuropathy, with long-term current use of insulin (Chronic) Memory loss due to medical condition (Acute) Craniopharyngioma (Acute) Chronic osteomyelitis involving right ankle and foot (Acute) Recurrent falls (Acute) Other chronic pain (Acute) Hypothyroidism (Chronic) Hyperplastic polyp of descending colon (Acute) Gastroesophageal reflux disease with esophagitis and hemorrhage (Acute) Gait instability (Acute) Failure to thrive in adult (Acute) Chronic deep vein thrombosis (DVT) (Chronic) Deep vein thrombosis (DVT) of proximal vein of left lower extremity (Acute) Benign prostatic hyperplasia (Chronic) Anemia (Chronic) Adjustment disorder with mixed anxiety and depressed mood (Chronic) Surgical History Status post total replacement of left hip History of right below knee amputation Family History Mother Alcohol use disorder Substance use disorder Father Alcohol use disorder Substance use disorder Cancer Social History Smoking/Tobacco Use Status: Former Tobacco Use tobacco type: smokeless tobacco Tobacco: How many years used: 30 Smokeless tobacco user: snuff Second Hand Exposure: Yes Smoking risk assessment performed?: Yes Alcohol Intake: never Drug use: Never Adopted: No Caregiver/Support person: No Foster care: No Household members: none Housing: apartment Number of Children: 2 number of grandchildren: 1 Communication Needs: None Education Level: high school Do you need help understanding health information?: Rarely current occupation: None Pets and animals: No Sexually active: No Do you think of yourself as: straight/heterosexual Current gender identity: male What is your relationship status?: How often do you talk on the phone with friends or family?: twice per week Do you belong to any clubs or organized social groups?: no Panel score (0-1 are the most socially isolated patients): 0 What type of physical activity do you participate in: additional Details: PT Excercises 2-3 times day Duration: 45-60 minutes/day Frequency: daily Lena/Yazidi: Confucianist Special lena needs: No Seatbelt use: always Helmet use: No (Never) 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
[2024-06-24] MEDS: Sulfameth/Trimeth DS TAB 1 TAB PO (17:39)
--- NOTE | 2024-06-24 18:10 | PGE_ITS ---
Date of Service Date of service: 06/24/24 Time of Service: 18:10 Assessment and Plan Assessment and plan (1) Sepsis: Status: Resolved Assessment and plan: Resolving has remained hemodynamically stable and afebrile WBC stable Source knee abscess which as been drained, continue antibiotic therapy blood cultures negative x 96 hours (2) Abscess of popliteal region: Status: Acute Assessment and plan: Cultures grew MRSA and GPR w/o further details o sensitivities Was on from 06/19 vancomycin IV and ceftriaxone ; both discontinued Now on Bactrim DS BID - Blood Cx no growth X 96 hours [facility] drainage completed 06/20/2024, drain remains intact continue to monitor drainage. Will need a 2-week f/u w IR @ [facility]- they will call the patient as per conversation with IR today Follow inflammatory markers: CRP now 15 from > 25 on admission Improving lateral bilateral and posterior indurations (3) Type 2 diabetes mellitus with diabetic polyneuropathy, with long-term current use of insulin: Status: Chronic Assessment and plan: On admit A1C 13.9 Ongoing blood sugar readings and HS with SSI coverage blood sugars poorly controlled with checks in the 256- 340 Continue basal insulin to 25 units twice daily adjusting as needed Resume metformin (4) PAD (peripheral artery disease): Status: Chronic Assessment and plan: Outpatient management at discharge Fully anticoagulated re: DVT (5) Chronic pain: Status: Chronic Assessment and plan: Continue scheduled APAP and oxycodone PRN - start weaning to home dosing now infection treated and drained. Continue PRN Toradol home dose gabapentin , increase if needed for better neuropathic pain control. (6) Chronic deep vein thrombosis (DVT): Status: Chronic Assessment and plan: ongoing eliquis 10 mg X 14 doses total - then 5 mg BID and f/u outpatient Monitor for bleeding (7) HTN (hypertension): Status: Chronic Assessment and plan: Ongoing home medication, adjust as needed (8) Benign prostatic hyperplasia: Status: Chronic Assessment and plan: Ongoing home flomax medicine regimen (9) Hypothyroidism: Status: Chronic Assessment and plan: Continue home dose levothyroxine on admission TSH 1.32 (10) Wound of left foot: Status: Acute Assessment and plan: Podiatry consult completed: Please read notes Dressing and care as per podiatry orders (11) Adjustment disorder with mixed anxiety and depressed mood: Status: Chronic Assessment and plan: ongoing home dose of sertraline and gabapentin - avoid benzodiazepines as the patient is having increased dosing of his chronic opioids (12) Discharge planning issues: Status: Acute Assessment and plan: medically ready for discharge- with IR [facility] to reach out to patient for f/u re: drain ( confirm with IR 06/24/24) PT has not cleared the patient as this time and still withmoderate assist to get OOB to chair and inability to bear weight as usual on his LUE Initially not agreeable to SNF/Rehab but later agrees to try NSF/ rehab Discussed with Subjective Subjective Patient reports: no new complaints, pain is less, tolerating liquids well, tolerating a regular diet, voiding w/o difficulty, bowel movement and afebrile; denies diarrhea, blood in stool, nausea, vomiting, shortness of breath or fever Exam Narrative Exam Narrative: 63 yo chronically ill-appearing male patient looking older than stated age , in no acute distress ,A&O x4 w/o neurologic focal deficits , eyes non-icteric noninjected, poor dentition, respirations unlabored , clear lungs bilaterally, cardiovascular regular rate and rhythm, S1, S2; below the knee amputation on the right with stump well-healed; healing abrasion to lateral aspect of left foot heel with no surrounding erythema; SHANTAL drain to posterior left lower extremity intact draining amount of brown muddy-liquid, reduced size firm tender mass palpated posterior lower left thigh, lateral calf no fluctuance, L knee flexion 90 degrees- improved. No surrounding erythema psychiatric expansive animated limited judgment and insight Psych Mental Status: mental status grossly normal Speech and Movement: speech and movement normal Mood: congruent mood Affect: normal affect Attitude: cooperative Thought Process: circumstantial Insight: poor Judgment: limited Objective Last Vital Signs Temp 37.1 C 06/24/24 15:53 Pulse 84 06/24/24 15:53 Resp 18 06/24/24 15:53 BP 150/74 H 06/24/24 15:53 Pulse Ox 95 06/24/24 15:53 Laboratory Results - last 24 hr 06/24/24 06:39 Sodium 134 L Potassium 4.4 Chloride 100 Carbon Dioxide 31.1 Anion Gap 2.9 L BUN 12 Creatinine 1.1 Est GFR (CKD-EPI 2020) 75.90 Glucose 329 H Calcium 8.9 Time Spent with Patient Time Spent with Patient: >50 minutes Time was spent: preparing to see the patient(eg.review tests), obtaining and/or reviewing separately otained hiistory, ordering medications,tests, procedures, referring, communicating with other health healthcare project manager, indepentently interpreting results, counseling the patient and care coordination
[2024-06-24] MEDS: metFORMIN 500 MG TAB 1000 MG PO (20:44)
[2024-06-24] MEDS: Cholecalciferol (Vitamin D3) 1,000 UNIT TAB 2000 UNITS PO (20:45)
[2024-06-24 21:03] VITALS: BP 142/78; PULSE 85; RESP 19; TEMP 36.7; O2SAT 95
[2024-06-24] MEDS: oxyCODONE 5 MG TAB PO (22:15)
[2024-06-24 23:53] VITALS: BP 148/73; PULSE 79; RESP 19; TEMP 37; O2SAT 94
[2024-06-25] MEDS: Normal Saline Flush 10 ML SYR IVP ×4 (00:11→20:18)
[2024-06-25] MEDS: Nystatin POWDER 15 GM JAR TP ×4 (00:12→20:17)
[2024-06-25] MEDS: Acetaminophen 500 MG TAB 1000 MG PO ×3 (02:36→14:45)
[2024-06-25] MEDS: Ketorolac 15 MG/ML VIAL IVP ×2 (02:36→14:50)
[2024-06-25 02:40] VITALS: BP 138/85; PULSE 81; RESP 20; TEMP 36.6; O2SAT 95
[2024-06-25] MEDS: Levothyroxine 112 MCG TAB PO (05:59)
[2024-06-25] MEDS: Insulin Glargine 300 UNITS/3 ML PEN 25 UNITS SC ×2 (08:00→20:16)
[2024-06-25] MEDS: Pantoprazole 40 MG TABCR PO (08:01)
[2024-06-25 08:02] VITALS: BP 133/80; PULSE 75; RESP 18; TEMP 37.1; O2SAT 93
[2024-06-25] MEDS: metFORMIN 500 MG TAB 1000 MG PO ×2 (08:02→17:29)
[2024-06-25] MEDS: Losartan 25 MG TAB PO (08:02)
[2024-06-25] MEDS: Gabapentin 300 MG CAP PO ×2 (08:02→14:45)
[2024-06-25] MEDS: Sertraline 50 MG TAB PO (08:02)
[2024-06-25] MEDS: Tamsulosin 0.4 MG CAPCR PO (08:02)
[2024-06-25] MEDS: Apixaban 5 MG TAB 10 MG PO ×2 (08:03→20:24)
[2024-06-25] MEDS: Magnesium Oxide 400 MG TAB PO (08:03)
[2024-06-25] MEDS: Atorvastatin 20 MG TAB PO (08:03)
[2024-06-25] MEDS: Sulfameth/Trimeth DS TAB 1 TAB PO ×2 (09:50→20:23)
--- NOTE | 2024-06-25 09:58 | PDOC.CMPRO ---
Date of service: 06/25/24 Time of Service: 09:58 Care Management Progress Note Progress Note Text Progress Note Text: Jeff was sitting up in a chair when CM met with him. He seemed to be in better spirits and informed CM that he has decided to accept the recommendation made by PT and will seek a bed in a SNF for short term rehab. After discussion, Jeff requested that referrals be sent to [facility] and to the [facility]. The [facility] responded that they do not have a bed and [facility] is still reviewing. Jeff has been able to work with PT but his participation is still limited by pain when his LLE is in a dependent position. CM will follow. Discharge Potential Discharge Needs: PCP F/U Appt and Surgical F/U Appt Anticipated Barriers to Discharge: None Identified Patient/Family Education Needs: Review discharge instructions, discuss Ask Me Three Transportation: Private vehicle Plan: Anticipate Jeff will be transferred to a SNF for short term rehab prior to returning home. He will follow up with his community providers and plan of care and transport with family. CM will continue to support discharge planning efforts. Social Determinants of Health Screening Will the Patient Participate in the Screening?: Declined to provide Do you worry about having a steady place to live?: choose not to answer In the past 12 months, have you had to go without electric, gas, oil or water in your home?: choose not to answer Has lack of transportation kept you from medical appointments or from doing things needed for daily living?: choose not to answer Has anyone in your life made you feel unsafe or unsupported?: choose not to answer Do you want help finding or keeping work or a job?: I do not need or want help If for any reason you need help with day-to-day activities such as bathing, preparing meals, shopping, managing finances, etc., do you get the help you need?: I don?t need any help How often do you feel lonely or isolated from those around you?: Never Do you speak a language other than Slovak at home?: No Does the patient want assistance with any of the above?: No Health Related Social Needs Health related social needs: material hardship(utilities) (Z59.12)
--- NOTE | 2024-06-25 10:07 | PGE_ITS ---
Date of Service Date of service: 06/25/24 Time of Service: 10:07 Assessment and Plan Assessment and plan (1) Sepsis: Status: Resolved Assessment and plan: Resolving patient is hemodynamically stable and afebrile WBC stable Source knee abscess which as been drained with SHANTAL kept in place , continue antibiotic therapy Blood cultures negative x 120 hours (2) Abscess of popliteal region: Status: Acute Assessment and plan: Cultures grew MRSA and GPR normal martine ( lactobacillus acidophilus) Was on from 06/19 vancomycin IV and ceftriaxone ; both discontinued on 06/24 Continue Bactrim DS BID started on 06/24 Blood Cx no growth X 120 hours [facility] drainage completed 06/20/2024, drain remains intact continue to monitor drainage. Will need a 2-week f/u w IR @ [facility]- they will call the patient as per conversation with IR today Follow inflammatory markers: CRP now 15 from > 25 on admission CBC, BMP, Mg and CRP in AM (3) Type 2 diabetes mellitus with diabetic polyneuropathy, with long-term current use of insulin: Status: Chronic Assessment and plan: On admit A1C 13.9- blood sugar now 138-222 from 359 on admission Continue blood sugar readings and HS with SSI coverage Blood sugars poorly controlled outpatient - Nutrition consult Continue basal insulin 25 units twice daily adjusting as needed ongoing metformin (4) PAD (peripheral artery disease): Status: Chronic Assessment and plan: Outpatient management at discharge Fully anticoagulated re: DVT (5) Chronic pain: Status: Chronic Assessment and plan: scheduled APAP and oxycodone PRN - down to home dosing now that the infection getting treated and drained. Continue decreased PRN Toradol Increased home dose gabapentin to 600 mg PO BID and 300 mg daily at noon - better neuropathic pain control. (6) Chronic deep vein thrombosis (DVT): Status: Chronic Assessment and plan: ongoing eliquis 10 mg X 14 doses total - then 5 mg BID and f/u outpatient Monitor for bleeding (7) HTN (hypertension): Status: Chronic Assessment and plan: On home medication regimen , adjust as needed (8) Benign prostatic hyperplasia: Status: Chronic Assessment and plan: On home flomax medicine regimen (9) Hypothyroidism: Status: Chronic Assessment and plan: On home dose levothyroxine on 06/19 - TSH 1.32 (10) Wound of left foot: Status: Acute Assessment and plan: Podiatry consult completed: Please read notes No obvious sign of infection Dressing and care as per podiatry orders (11) Adjustment disorder with mixed anxiety and depressed mood: Status: Chronic Assessment and plan: Continue home dose of sertraline and increased gabapentin dosing - avoid benzodiazepines as the patient is having increased dosing of his chronic opioids (12) Discharge planning issues: Status: Acute Assessment and plan: Medically ready for discharge- with IR [facility] to reach out to patient for f/u re: drain ( confirm with IR 06/24/24) PT consult ongoing Referral for SNF/Rehab sent by CM - pending offers Discussed with Subjective Subjective Patient reports: no new complaints, pain is less, tolerating liquids well, tolerating a regular diet, voiding w/o difficulty, bowel movement and afebrile; denies diarrhea, blood in stool, nausea, vomiting, shortness of breath or fever Exam Narrative Exam Narrative: No acute distress ,A&O x3 ( vague about date) w/o neurologic focal deficits ,respirations unlabored , clear lungs bilaterally, cardiovascular regular rate and rhythm, S1, S2; below the knee amputation on the right ; healing abrasion to lateral aspect of left foot heel covered with mepilex with no surrounding erythema; SHANTAL drain to posterior left lower extremity intact with moderate amount of brown muddy drainage , reduced size firm tender mass palpated posterior lower left thigh, lateral calf no fluctuance, L knee flexion 90 degrees- less swelling . psychiatric remains expansive animated limited judgment and insight Objective Last Vital Signs Temp 37.1 C 06/25/24 08:02 Pulse 75 06/25/24 08:02 Resp 18 06/25/24 08:02 BP 133/80 06/25/24 08:02 Pulse Ox 93 06/25/24 08:02 Time Spent with Patient Time Spent with Patient: >50 minutes Time was spent: preparing to see the patient(eg.review tests), obtaining and/or reviewing separately otained hiistory, ordering medications,tests, procedures, referring, communicating with other health manager home healthcare, indepentently interpreting results, counseling the patient and care coordination
[2024-06-25 11:02] VITALS: BP 153/81; PULSE 93; RESP 18; TEMP 37.1; O2SAT 96
--- NOTE | 2024-06-25 11:22 | PT.INTREAT ---
PT Notes Visit Reasons: Abscess left Popliteal with Hematoma, NIDDM,PVD, Inpatient Physical Therapy Treatment Note [facility] Date: 06/25/2024 SUBJECTIVE:Pt reports he still does not have is prosthetic socks here . Pt reports he is having pain along insertion of hamstring when seated. Pt reports pain in his LLE of 10/10 when dependent position. Pain reduces to 5/10 within 5mins after elevation. 2nd session: pt reports his pain has not subsided despite medication . He states he does not know what to do. OBJECTIVE: Drain and bandage to left calf in place. ? 2nd session: Pt presented reclined in chair with 3 pillows elevating his Left lower leg. Of note the pillows are pressing against area on posterior calf. Skin inspected with pink warm area to popliteal proximal to bandage noted. ? VITALS: ? monitored by nsg. Therapeutic Activities (52245): Direct one-on-one instruction in dynamic activities to improve functional performance. ?? Provided skilled cues and instruction on performance and technique throughout. ? BED MOBILITY/TRANSFERS? AM Session ? Supine-sit: min A of 1 ? Sit-stand: Min A of 1 ? Stand-sit: Min A of 1 from elevated surface? Bed-Chair: Min A of 1 with FWW step turn with prosthetic on? chair to/from commode: min A with cues to put left foot flat on floor and for Right knee extension -pt dependent for toilet hygiene . Larger commode placed in room to allow for attempts at lateral weight shift to perform hygiene seated. Therapeutic exercise- (31625) Performed QS 2x10 holding 5 sec. SLR x5, AP x20., GS x10 Prolonged calf stretch with sheet 3 x10 second hold. Provided cues for proper quad engagement. PM Session Therapeutic activity: sit to stand from chair min A to FWW CGA with FWW step turn with minimal WB noted through left toes , excessive WB through BUE. pt requires cues to extend Right knee sit to supine with CGA and use of rail assist to position LLE attempted to float area of left popliteal and posterior calf to unweight / reduce pressure to area. without success. ASSESSMENT:Pt with reduced tolerance to prolonged stretch to increase left DF with sheet. Pt limited to step turn transfer with FWW and prosthetic d/t Pain in LLE with dependent position. Pt requiring assistance with sit to stand Pt is encouraged to place foot flat to reduce risk of further impairment . Pt also limited in functional ability by cognitive impairment/ short term memory deficits.Pt education provided for positioning to reduce risk of contracture at knee and ankle. Pt with poor carryover of positioning to reduce contracture. Pt preference to have LLE elevated with >50 degrees of knee flexion and hip ER. PLAN: will continue to work strength , ROM/ contracture management and functional mobility following PT POC TREATMENT CODE/TIME:1st session 96264, 40572/ [id number] 2nd session: [id number]/ [id number] DISCHARGE RECOMMENDATION: SNF
[2024-06-25] MEDS: oxyCODONE 5 MG TAB PO ×2 (12:24→20:33)
[2024-06-25] MEDS: Insulin Aspart 300 UNITS/3 ML PEN SC ×3 (12:24→21:36)
--- NOTE | 2024-06-25 12:43 | PHA.REVIEW2 ---
Pharmacy Admission Review Admission Clinical Review Admission Pharmacy Review: Discharge planning issues (Acute) Wound of left foot (Acute) Abscess of popliteal region (Acute) Abscess of popliteal region (Acute) Non-healing ulcer of left foot (Acute) Chronic ulcer of left foot (Acute) Ulcer of left foot with fat layer exposed (Acute) Diabetic foot ulcer (Acute) No Known Allergies Allergy (Verified 06/19/24 13:44) Resuscitation Status Full Code Height 6 ft 2 in Weight 116.346 kg Comments Comments/Follow Ups: Per provider patient is cleared for discharge. Referrals sent to SNF. Pharmacy Admission Review Renal Dosing Renal Dosing: BUN 12 mg/dL (7-18) 06/24/24 06:39 Creatinine 1.1 mg/dL (0.70-1.30) 06/24/24 06:39 Medications needing adjustments: Reviewed (CrCl 94.41 mL/min) List of meds needing interventions: Current medications are okay Anticoagulation Anticoagulation: Hgb 12.1 g/dL (13.5-17.5) L 06/23/24 10:32 Hct 36.7 % (40.0-50.0) L 06/23/24 10:32 Plt Count 301 10^3/uL (130-400) 06/23/24 10:32 INR 1.2 (0.9-1.1) H 06/19/24 13:45 Creatinine 1.1 mg/dL (0.70-1.30) 06/24/24 06:39 Therapeutic Anticoagulation: Reviewed Medications: Apixaban (10mg BID (stop date 06/27/24)) Opiate Usage Evaluate Pain Scale/Pains Meds: Reviewed (oxycodone 5mg PO q8h PRN - 10mg / 24hrs) Scheduled Bowel Reg ordered if on Opiates?: No (PRN docusate/Miralax) Relevant Labs Relevant Labs: ESR 96 mm/hr (0-20) H 06/19/24 13:45 Sodium 134 mmol/L (136-145) L 06/24/24 06:39 Potassium 4.4 mmol/L (3.5-5.1) 06/24/24 06:39 Chloride 100 mmol/L (98-107) 06/24/24 06:39 Magnesium 1.9 mg/dL (1.8-2.4) 06/21/24 06:30 C-Reactive Protein 15.45 mg/dL (<or=0.5) H 06/23/24 10:32 Electrolytes, C-Reactive P, ESR: Reviewed (No new labs for today) DM Control DM Control: Glucose 329 mg/dL (74-106) H 06/24/24 06:39 Finger Stick Blood Glucose 160 1224 Finger Stick Blood Glucose 160 1143 Finger Stick Blood Glucose 160 1143 Finger Stick Blood Glucose 138 0804 Finger Stick Blood Glucose 138 0800 Finger Stick Blood Glucose 138 0730 Finger Stick Blood Glucose 138 0730 DM Control: Reviewed Insulin Dosing, Diabetic Medication: Has order for SS insulin, glargine 25units twice daily and metformin 1000mg BID Cardiac Review Cardiac Review: Troponin I Cancelled 06/19/24 17:05 Blood Pressure 153/81 1102 Blood Pressure 133/80 0802 Blood Pressure 138/85 0240 BP, HR, EF%: Reviewed (HR 93) List meds needing interventions: Has order for losartan 25mg daily QTc Review QTc: Reviewed (No EKG on file) IV to PO Switch IV Medications: Reviewed (ketorolac) Home Meds Home Med List reviewed: Reviewed Relevent Home Meds Not ordered & why?: sildenafil (PRN) Current Meds Current Medication Order Review: Reviewed Pharmacy Antibiotic Review Relevant Labs: WBC 11.94 10^3/uL (4.4-10.8) H 06/23/24 10:32 Temperature 37.1 C Temperature 37.1 C Temperature 36.6 C Pharmacy Antibiotic Activity: C/S review and Reviewed, no change Comments: Patient is on Bactrim DS PO, day 1, for sepsis/abscess. Patient completed 4 days of vancomycin and ceftriaxone, which was discontinued yesterday. Blood cultures showing no growth at 120hrs. Comments Comments/Follow Ups: Per provider patient is cleared for discharge. Referrals sent to SNF.
[2024-06-25 15:18] VITALS: BP 148/75; PULSE 91; RESP 18; TEMP 37.7; O2SAT 93
[2024-06-25 19:34] VITALS: BP 150/78; PULSE 89; RESP 18; TEMP 36.8; O2SAT 93
[2024-06-25] MEDS: Cholecalciferol (Vitamin D3) 1,000 UNIT TAB 2000 UNITS PO (20:22)
[2024-06-25] MEDS: Gabapentin 300 MG CAP 600 MG PO (20:22)
[2024-06-25 23:08] VITALS: BP 145/76; PULSE 85; RESP 20; TEMP 36.8; O2SAT 94
[2024-06-26] MEDS: Acetaminophen 500 MG TAB 1000 MG PO ×2 (01:49→07:57)
[2024-06-26] MEDS: Ketorolac 15 MG/ML VIAL IVP (02:53)
[2024-06-26] MEDS: Normal Saline Flush 10 ML SYR IVP ×2 (02:54→08:01)
[2024-06-26 03:12] VITALS: BP 156/76; PULSE 89; RESP 20; TEMP 37.4; O2SAT 98
[2024-06-26] MEDS: Methocarbamol 500 MG TAB PO ×2 (03:19→12:12)
[2024-06-26] MEDS: Levothyroxine 112 MCG TAB PO (05:43)
[2024-06-26 07:07] LABS: Abs Immature Grans 0.06 10^3/uL (0.0-0.06); Absolute Basophil Count 0.06 10^3/uL (0.0-0.2); Absolute Eosinophil Count 0.24 10^3/uL (0.0-0.7); Absolute Lymphocyte Count 1.95 10^3/uL (1.2-3.4); Basophils % 0.5 %; Eosinophils % 1.9 %; HCT 34.3 % (40.0-50.0); HGB 11.2 g/dL (13.5-17.5); Immature Grans % 0.5 %; Lymphocytes % 15.5 %; MCH 30.8 pg (27.0-33.0); MCHC 32.7 % (32.0-36.0); MCV 94 fL (80-95); MPV 9.3 fL (8.0-11.0); Monocytes % 6.9 %; Neutrophils % 74.7 %; Platelet Count 362 10^3/uL (130-400); RBC 3.64 10^6/uL (4.36-5.78); RDW 12.7 % (11.8-14.1); RDW-SD 43.8 fL; WBC 12.55 10^3/uL (4.4-10.8)
[2024-06-26 07:09] LABS: Absolute Monocyte Count 0.87 10^3/uL (0.1-0.8); Absolute Neutrophil Count 9.37 10^3/uL (1.2-6.7)
[2024-06-26 07:21] VITALS: BP 131/73; PULSE 84; RESP 15; TEMP 37.1; O2SAT 92
[2024-06-26 07:25] LABS: Anion Gap 1.7 mmol/L (3-11); BUN 15 mg/dL (7-18); C-Reactive Protein 10.81 mg/dL (<or=0.5); CO2 33.3 mmol/L (21.0-32.0); CREATININE 1.2 mg/dL (0.70-1.30); Calcium 8.9 mg/dL (8.5-10.1); Chloride 102 mmol/L (98-107); Estimated GFR 68.38 (mL/min/1.73m2); Glucose 156 mg/dL (74-106); Magnesium 1.6 mg/dL (1.8-2.4); Potassium 5.1 mmol/L (3.5-5.1); Sodium 137 mmol/L (136-145)
[2024-06-26] MEDS: Apixaban 5 MG TAB 10 MG PO (07:58)
[2024-06-26] MEDS: Magnesium Oxide 400 MG TAB PO (07:58)
[2024-06-26] MEDS: metFORMIN 500 MG TAB 1000 MG PO (07:58)
[2024-06-26] MEDS: Gabapentin 300 MG CAP 600 MG PO (07:59)
[2024-06-26] MEDS: Atorvastatin 20 MG TAB PO (07:59)
[2024-06-26] MEDS: Sulfameth/Trimeth DS TAB 1 TAB PO (07:59)
[2024-06-26] MEDS: oxyCODONE 5 MG TAB PO (07:59)
[2024-06-26] MEDS: Sertraline 50 MG TAB PO (08:00)
[2024-06-26] MEDS: Losartan 25 MG TAB PO (08:00)
[2024-06-26] MEDS: Pantoprazole 40 MG TABCR PO (08:00)
[2024-06-26] MEDS: Tamsulosin 0.4 MG CAPCR PO (08:00)
[2024-06-26] MEDS: Insulin Aspart 300 UNITS/3 ML PEN SC ×2 (08:01→12:13)
[2024-06-26] MEDS: Insulin Glargine 300 UNITS/3 ML PEN 25 UNITS SC (08:02)
[2024-06-26] MEDS: Nystatin POWDER 15 GM JAR TP (08:06)
[2024-06-26 11:20] VITALS: BP 121/86; PULSE 87; RESP 15; TEMP 36.7; O2SAT 93
--- NOTE | 2024-06-26 11:40 | PT.INTREAT ---
PT Notes Visit Reasons: Abscess left Popliteal with Hematoma, NIDDM,PVD, Inpatient Physical Therapy Treatment Note [facility] Date: 06/26/2024 SUBJECTIVE:Pt reports he still does not have is prosthetic socks here . Pt reports he is having pain along insertion of hamstring when seated. Pt reports pain in his LLE of 10/10 when dependent position. Pain reduces to 5/10 within 5mins after elevation. OBJECTIVE: Drain and bandage to left calf in place. ? VITALS: ? monitored by nsg. Therapeutic Activities (44069): Direct one-on-one instruction in dynamic activities to improve functional performance. ?? Provided skilled cues and instruction on performance and technique throughout. ? BED MOBILITY/TRANSFERS? AM Session ? Supine-sit:Supervision? Sit-stand: Min A of 1from 19 height , CGA from 21 height x 3 trials? Stand-sit: CGA of 1 x 3 trials ? Bed-Chair: Min A of 1 with FWW step turn with prosthetic on? chair to/from commode: min A with cues to put left foot flat on floor and for Right knee extension Therapeutic exercise- (15993) Performed QS 2x10 holding 5 sec. SLR x5, AP x20., GS x10 , Hip IR and SAQ x 10 reps Provided cues for proper quad engagement. ASSESSMENT:Pt tolerating increased knee extension when in supine without LE elevation. Pt. with poor carryover and recall of plan and techniques for reducing pain . Pt pain continues to increase to 10/10 throbbing with dependent position. Pt with poor tolerance to standing d/t pain. Pt unstable during transition from sit to stand d/t limited WB through left LE. PLAN: will continue to work strength , ROM/ contracture management and functional mobility following PT POC TREATMENT CODE/TIME:1st session 90683, [id number]/ [id number] DISCHARGE RECOMMENDATION: SNF
--- NOTE | 2024-06-26 12:04 | PDOC.CMDIS ---
Date of service: 06/26/24 Time of Service: 12:04 LACE Index Scoring Tool Questions: Length of Stay (in days): 7 - 13 Was the patient admitted via the E.D.?: Yes Comorbidities: PVD and Diabetes w/o Complication E.D. Visits: 1 Answers: Total Score: 11 Risk of Readmission: High Risk Care Management Discharge Plan Reason for Hospitalization: abscess of popliteal region of let LE Discharge Plan: Jeff will be transferred to [facility] this afternoon. He will follow up with the facility providers and plan of care and transport via [facility] w/c van. Patient/Family Education Needs: Review of discharge instructions, limitations, follow up plan and discuss Ask Me Three Services Needed at Discharge: [facility] Facility SDOH Health Related Social Needs: Health related social needs material hardship(utilities) (Z59.12) Health related social needs details Noted
[2024-06-26] MEDS: Gabapentin 300 MG CAP PO (12:13)
--- NOTE | 2024-06-26 12:49 | DM INPTCON_ITS ---
Date of service: 06/26/24 Time of Service: 12:49 Diabetes Inpatient Consult Reason for Visit: diabetes mgt/education consult DESCRIPTION/ASSESSMENT: 63yo male readmitted after recent discharge 06/24. Being treated for sepsis related to popliteal abscess. Hx of poorly controlled glucose with diabetes, PAD, chronic DVT, HTN, BPH, hypothyroidism, wound to left foot. A1c 13.9% today with recent Hx of >14 consistently. Per nutrition interview, Jeff with barriers to getting glucose closer to target - memory issues, ambivalence, low food budget, not a lot of support as he lives alone in [facility]. Pt feels his glucose numbers have improved this admission and I whole-heartedly agreed and let him know this was most likely due to better controlled menu and accurate insulin therapy for corrections. He states he is going to be discharged to rehab facility next door in about an hour but did accept my card to contact for outpatient support when he is back home. Let him know dietitian next door can help review education pieces we touched on today as far as CHO serving sizes and number per day (suggested no more than 200g total carb per day and translated to ~12-13 servings from list in handout I brought. Reviewed balancing plate with protein and nonstarch veggies per plate graphic. Pt recepetive but forgetful and will need reinforcement. INTERVENTION: Provided some remedial education and pt has my contact info. No aggressive intervention planned at this time d/t discharge this afternoon. PLAN: will remain available to continue education /mgt support in outpatient setting. Time Spent in Nutritional Counseling and Treatment: 10 min
== END 2024-06-26 13:47 | disposition skilled nursing facility (03) | DRG 872 ==
LOC: ER 23:38 → MS 06-20 00:25
PROVIDERS: Family Medicine; Hospitalist; Admitting Provider Family Medicine; Emergency Provider Emergency Medicine; PCP Family Medicine; Responsible Provider Nurse Practitioner Acute Care; Visit Provider Family Medicine
DX: A41.9 Sepsis, unspecified organism (principal); L02.416 Cutaneous abscess of left lower limb; I82.592 Chronic embolism and thrombosis of other specified deep vein of left lower extremity; E11.42 Type 2 diabetes mellitus with diabetic polyneuropathy; I73.9 Peripheral vascular disease, unspecified; I10 Essential (primary) hypertension; I35.0 Nonrheumatic aortic (valve) stenosis; E03.9 Hypothyroidism, unspecified; E11.621 Type 2 diabetes mellitus with foot ulcer; E11.65 Type 2 diabetes mellitus with hyperglycemia; L97.522 Non-pressure chronic ulcer of other part of left foot with fat layer exposed; I87.2 Venous insufficiency (chronic) (peripheral); N40.1 Benign prostatic hyperplasia with lower urinary tract symptoms; G54.6 Phantom limb syndrome with pain; G89.4 Chronic pain syndrome; F43.23 Adjustment disorder with mixed anxiety and depressed mood; Z89.511 Acquired absence of right leg below knee; Z96.642 Presence of left artificial hip joint; Z87.891 Personal history of nicotine dependence; Z79.01 Long term (current) use of anticoagulants; Z79.4 Long term (current) use of insulin; B95.62 Methicillin resistant Staphylococcus aureus infection as the cause of diseases classified elsewhere
CPT/HCPCS: 00123; 36415; 73706; 80048; 80053; 85027; 85652; 87040; 87637; 96365; 96366; 96375; 97110; 97162; 97530; 99222; 99285; 73630; 80202; 83605; 83735; 84443; 84484; 85025; 85610; 85730; 86140; 93971; 99223; 99232; 99233; 99239; A0425; A0426; J0131; J0696; J1644; J1815; J1885; J2270; J3370; J3490

== ENCOUNTER 2024-07-07 01:17 | Emergency (ER) | payer MEDICARE, BC, SELFPAY ==
[2024-07-07 01:18] VITALS: BP 117/47; PULSE 96; RESP 16; TEMP 37.2; O2SAT 94
--- NOTE | 2024-07-07 01:39 | W.ED.GENAD ---
Discharge Plan Disposition Patient Disposition: Half-Way Facility(SNF) Condition: Good Discharge Details Clinical Impression: SHANTAL drain bleeding Primary Care Provider: Franco Quick ED Provider: [place] Home Meds and New Rx's Prescriptions: No Action apixaban 5 mg tablet 5 mg PO BID Qty: 180 3RF atorvastatin 20 mg tablet 20 mg PO DAILY Qty: 90 3RF cholecalciferol (vitamin D3) 50 mcg (2,000 unit) capsule 50 mcg PO QHS Qty: 90 3RF gabapentin 300 mg capsule 300 mg PO TID Qty: 270 3RF insulin aspart U-100 [Novolog FlexPen U-100 Insulin] 100 unit/mL (3 mL) insulin pen 18 unit subcut TID Qty: 15 3RF Rx Instructions: with meals insulin glargine 100 unit/mL (3 mL) insulin pen 55 unit subcut QHS Qty: 15 6RF levothyroxine 112 mcg capsule 112 mcg PO DAILY Qty: 90 3RF losartan 25 mg tablet 25 mg PO DAILY Qty: 90 3RF magnesium oxide 400 mg (241.3 mg magnesium) tablet 400 mg PO DAILY Qty: 90 3RF metformin 500 mg tablet 1,000 mg PO BIDWMEAL Qty: 180 3RF Rx Instructions: With breakfast and dinner methocarbamol 500 mg tablet 500 mg PO Q8H PRN Qty: 90 3RF pantoprazole 40 mg tablet,delayed release (DR/EC) 40 mg PO .before breakfast Qty: 90 3RF sertraline 50 mg tablet 50 mg PO DAILY Qty: 90 3RF tamsulosin 0.4 mg capsule 0.4 mg PO DAILY Qty: 90 3RF oxycodone 5 mg tablet 5 mg PO TID MDD 15 mg PRN (Reason: pain) Qty: 15 0RF (DME) FreeStyle Hao 2 Sensor Kit See Rx Instructions .ROUTE .MEDSUPPLY Qty: 1 11RF Rx Instructions: As directed, test TID and prn (DME) FreeStyle Hao 2 Social Circle Misc See Rx Instructions .ROUTE .MEDSUPPLY Qty: 1 0RF Rx Instructions: As directed, TID and prn sildenafil 100 mg tablet 100 mg PO DAILY PRN (Reason: sexual activity) Qty: 30 3RF Rx Instructions: administer 30 minutes to 4 hours before activity (DME) diabetic shoes See Rx Instructions .Route .MEDSUPPLY Qty: 1 0RF Rx Instructions: As directed Santyl 250 unit/gram ointment 1 applic topical DAILY Qty: 90 0RF Rx Instructions: Ulcer measures 1.1 x 0.9 x 0.3 cm acetaminophen 500 mg capsule 500 mg PO Q6H (DME) pen needle, diabetic 31 gauge x 5/16 needle See Rx Instructions .Route Rx Instructions: As directed (DME) blood-glucose meter [FreeStyle [place] Lite] Kit See Rx Instructions .Route Rx Instructions: As directed blood glucose test stripts 1 ea XX DIRECTED PRN (DME) lancets [FreeStyle Lancets] 28 gauge misc See Rx Instructions .Route Rx Instructions: As directed Eliquis 5 mg Tablet 5 mg PO BID Qty: 60 0RF Rx Instructions: Take 10 mg twice a day for( tonight, on 06/25, 06/26, 06/27) 7 doses Then on 06/28 start taking 5 mg twice a day until seen by your PCP acetaminophen 500 mg Tablet 1,000 mg PO Q6H Qty: 40 0RF insulin glargine [Lantus Solostar U-100 Insulin] 100 unit/mL (3 mL) Insulin Pen 25 unit subcut BID Qty: 15 0RF sulfamethoxazole-trimethoprim 800-160 mg Tablet 1 tab PO BID Qty: 18 0RF Discharge Instructions Additional Instructions: At this time your SHANTAL drain appears to still be in place on the ultrasound. It is still actively draining. The suture is intact. The bandage has been replaced. If you notice any worsening swelling, change in the drainage, worsening pain, please return for reassessment. Please follow-up closely with your surgeon. If you notice any worsening of your symptoms, or any new symptoms such as vomiting, diarrhea, fever, chills, shortness of breath, chest pain, numbness, weakness, or fainting , please return immediately to the emergency department for reevaluation. Please follow up with your primary care provider as soon as possible for reassessment and reevaluation. As always, it was a pleasure participating in your medical care today. Referrals: Franco Quick DO [Primary Care Provider] - Discharge Data Discharge Date/Time-TO BE ENTERED AT DEPARTURE: 07/07/24 02:18 HPI General Date/Time Provider Initiated Documentation: 07/07/24 01:39. HPI Narrative: 63-year-old male with a past medical history of type 2 diabetes, peripheral artery disease, chronic DVT currently on Eliquis, hypothyroidism, below the knee amputation on the right secondary to nonhealing diabetic ulcer, insulin-dependent diabetes mellitus type 2, hypertension, memory loss, [facility], with a recent admission and discharge 2 weeks ago for left popliteal abscess with hematoma, presents today for evaluation of drain check. Patient had an abscess and hematoma, was on antibiotics, has a SHANTAL drain in the left calf for wound and blood drainage. [facility] is [facility] last night, stepped on the drain and it pulled significantly. He had some mild pain and bleeding at that moment. He was then brought to the ER for further evaluation of the drain. He denies any new pain. He denies any new tenderness otherwise. No other complaints at this time. Related Data Home Medications ?Medication ?Instructions ?Recorded ?Confirmed acetaminophen 500 mg capsule 500 mg PO Q6H 10/15/23 06/19/24 blood glucose test stripts 1 ea XX DIRECTED PRN 10/15/23 06/19/24 blood-glucose meter (FreeStyle 10/15/23 06/17/24 [place] Lite kit) lancets 28 gauge (FreeStyle 10/15/23 06/17/24 Lancets) pen needle, diabetic 31 gauge x 10/15/23 06/17/24 5/16 flash glucose scanning reader #1 ea 10/25/23 06/17/24 (FreeStyle Hao 2 Social Circle) flash glucose sensor (FreeStyle #1 ea 10/25/23 06/17/24 Hao 2 Sensor kit) apixaban 5 mg tablet 5 mg PO BID #180 tabs 11/09/23 06/19/24 atorvastatin 20 mg tablet 20 mg PO DAILY #90 tabs 11/09/23 06/19/24 cholecalciferol (vitamin D3) 50 50 mcg PO QHS #90 caps 11/09/23 06/19/24 mcg (2,000 unit) capsule gabapentin 300 mg capsule 300 mg PO TID #270 caps 11/09/23 06/19/24 insulin aspart U-100 100 unit/mL 18 unit (0.18 mL) subcut TID #15 mL 09/06/24 04/17/25 (3 mL) subcutaneous pen (Novolog FlexPen U-100 Insulin aspart) insulin glargine 100 unit/mL (3 55 unit (0.55 mL) subcut QHS #15 mL 11/09/23 06/19/24 mL) subcutaneous pen levothyroxine 112 mcg capsule 112 mcg PO DAILY #90 caps 11/09/23 06/19/24 losartan 25 mg tablet 25 mg PO DAILY #90 tabs 11/09/23 06/19/24 magnesium oxide 400 mg (241.3 mg 400 mg PO DAILY #90 tabs 11/09/23 06/19/24 magnesium) tablet metformin 500 mg tablet 1,000 mg (2 x 500 mg) PO BIDWMEAL 11/09/23 06/19/24 #180 tabs methocarbamol 500 mg tablet 500 mg PO Q8H PRN Pain or muscle 11/09/23 06/19/24 spasms #90 tabs pantoprazole 40 mg tablet,delayed 40 mg PO .before breakfast #90 tabs 11/09/23 06/19/24 release sertraline 50 mg tablet 50 mg PO DAILY #90 tabs 11/09/23 06/19/24 tamsulosin 0.4 mg capsule 0.4 mg PO DAILY #90 caps 11/09/23 06/19/24 sildenafil 100 mg tablet 100 mg PO DAILY PRN sexual 12/13/23 06/19/24 activity #30 tabs diabetic shoes #1 ea 02/28/24 06/17/24 collagenase clostridium histo. 250 1 applic topical DAILY #90 grams 03/19/24 06/19/24 unit/gram topical ointment (Santyl) oxycodone 5 mg tablet 5 mg PO TID PRN pain #15 tabs 06/17/24 06/19/24 acetaminophen 500 mg tablet 1,000 mg (2 x 500 mg) PO Q6H #40 06/24/24 tabs apixaban 5 mg tablet (Eliquis) 5 mg PO BID #60 tabs 06/24/24 insulin glargine 100 unit/mL (3 25 unit (0.25 mL) subcut BID #15 mL 06/24/24 mL) subcutaneous pen (Lantus Solostar U-100 Insulin) sulfamethoxazole 800 1 tab PO BID #18 tabs 06/24/24 mg-trimethoprim 160 mg tablet Previous Rx's ?Medication ?Instructions ?Recorded flash glucose scanning reader #1 ea 10/25/23 (FreeStyle Hao 2 Social Circle) flash glucose sensor (FreeStyle #1 ea 10/25/23 Hao 2 Sensor kit) apixaban 5 mg tablet 5 mg PO BID #180 tabs 11/09/23 atorvastatin 20 mg tablet 20 mg PO DAILY #90 tabs 11/09/23 cholecalciferol (vitamin D3) 50 50 mcg PO QHS #90 caps 11/09/23 mcg (2,000 unit) capsule gabapentin 300 mg capsule 300 mg PO TID #270 caps 11/09/23 insulin aspart U-100 100 unit/mL 18 unit (0.18 mL) subcut TID #15 mL 11/09/23 (3 mL) subcutaneous pen (Novolog FlexPen U-100 Insulin aspart) insulin glargine 100 unit/mL (3 55 unit (0.55 mL) subcut QHS #15 mL 11/09/23 mL) subcutaneous pen levothyroxine 112 mcg capsule 112 mcg PO DAILY #90 caps 11/09/23 losartan 25 mg tablet 25 mg PO DAILY #90 tabs 11/09/23 magnesium oxide 400 mg (241.3 mg 400 mg PO DAILY #90 tabs 11/09/23 magnesium) tablet metformin 500 mg tablet 1,000 mg (2 x 500 mg) PO BIDWMEAL 11/09/23 #180 tabs methocarbamol 500 mg tablet 500 mg PO Q8H PRN Pain or muscle 11/09/23 spasms #90 tabs pantoprazole 40 mg tablet,delayed 40 mg PO .before breakfast #90 tabs 11/09/23 release sertraline 50 mg tablet 50 mg PO DAILY #90 tabs 11/09/23 tamsulosin 0.4 mg capsule 0.4 mg PO DAILY #90 caps 11/09/23 sildenafil 100 mg tablet 100 mg PO DAILY PRN sexual 12/13/23 activity #30 tabs diabetic shoes #1 ea 02/28/24 collagenase clostridium histo. 250 1 applic topical DAILY #90 grams 03/19/24 unit/gram topical ointment (Santyl) oxycodone 5 mg tablet 5 mg PO TID PRN pain #15 tabs 06/17/24 acetaminophen 500 mg tablet 1,000 mg (2 x 500 mg) PO Q6H #40 06/24/24 tabs apixaban 5 mg tablet (Eliquis) 5 mg PO BID #60 tabs 06/24/24 insulin glargine 100 unit/mL (3 25 unit (0.25 mL) subcut BID #15 mL 06/24/24 mL) subcutaneous pen (Lantus Solostar U-100 Insulin) sulfamethoxazole 800 1 tab PO BID #18 tabs 06/24/24 mg-trimethoprim 160 mg tablet Allergies Allergy/AdvReac Type Severity Reaction Status Date / Time No Known Allergies Allergy Verified 06/19/24 13:44 General Stated Complaint: GenMedical FARHANA: 4 Exam Narrative Exam Narrative: 1.Const: Well-nourished, Well-developed, appearing stated age 2.Eyes: PERRL, no conjunctival injection, and symmetrical lids. 3.ENT: Atraumatic external nose and ears. Moist MM. Neck: Symmetric, trachea midline, No thyromegaly. 4.CVS: +S1/S2, Peripheral pulses 2+ and equal in all extremities. Brisk capillary refill in all extremities. 5.RESP: Unlabored respiratory effort. Clear to auscultation bilaterally. No wheezes rales or rhonchi 6.GI: Soft, Nontender/Nondistended, No hepatosplenomegaly. No guarding or rebound. 7.MSK: Right leg demonstrates a below the knee amputation. Left leg demonstrates an intact SHANTAL drain, sutures are in place and have not torn through or off. SHANTAL drain is still in the left calf, bedside ultrasound confirms placement of the tip inside the calf still. It is actively draining through the tube. Minimal oozing of blood was initially present around drain site after bandaging removal, however this resolved on its own. No redness or warmth to suggest acute infection. No atypical tenderness. No fenestrated components of the drain are outside of the skin. 8.Skin: Warm, Dry. No rashes or lesions. 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 Sensation grossly intact, no focal neurologic deficits. 10.Psych: (AAO) x3. Appropriate mood and affect Course Vital Signs Vital signs: Vital Signs Temperature 37.2 C 07/07/24 01:18 Pulse 96 H 07/07/24 01:18 Respiratory Rate 16 07/07/24 01:18 Blood Pressure 117/47 L 07/07/24 01:18 Pulse Oximetry 94 07/07/24 01:18 Temperature 37.2 C 07/07/24 01:18 Temperature Source Temporal Artery Scan 07/07/24 01:18 Pulse 96 H 07/07/24 01:18 Respiratory Rate 16 07/07/24 01:18 Blood Pressure 117/47 L 07/07/24 01:18 Blood Pressure Position Supine 07/07/24 01:18 Pulse Oximetry 94 07/07/24 01:18 Oxygen Delivery Method Room Air 07/07/24 01:18 Oxygen Flow Rate 0 07/07/24 01:18 Procedure Abscess Drainage Provider that performed the procedure: [place] Medical Decision Making 63-year-old male with a past medical history of type 2 diabetes, peripheral artery disease, chronic DVT currently on Eliquis, hypothyroidism, below the knee amputation on the right secondary to nonhealing diabetic ulcer, insulin-dependent diabetes mellitus type 2, hypertension, memory loss, [facility], with a recent admission and discharge 2 weeks ago for left popliteal abscess with hematoma, presents today for evaluation of drain check. Patient had an abscess and hematoma, was on antibiotics, has a SHANTAL drain in the left calf for wound and blood drainage. He is at [facility] last night, stepped on the drain and it pulled significantly. He had some mild pain and bleeding at that moment. He was then brought to the ER for further evaluation of the drain. He denies any new pain. He denies any new tenderness otherwise. No other complaints at this time. Right leg demonstrates a below the knee amputation. Left leg demonstrates an intact SHANTAL drain, sutures are in place and have not torn through or off. SHANTAL drain is still in the left calf, bedside ultrasound confirms placement of the tip inside the calf still. It is actively draining through the tube. Minimal oozing of blood was initially present around drain site after bandaging removal, however this resolved on its own. No redness or warmth to suggest acute infection. No atypical tenderness. No fenestrated components of the drain are outside of the skin. Bedside ultrasound was used to confirm drain placement, and it appears both intact and in place. Active drainage is still present through the tube itself, showing no evidence of current dislodgment. No other abnormalities at this time. Old bandaging was removed, new bandaging was placed. Patient tolerated this well. Drain and bulb was emptied, and continued drainage was present which appears to be very mild. With no evidence of removal of drain, no need for reinsertion, I do not see any indication for repeat surgical or IR management at this time. Drain appears to be appropriately placed. Patient will be discharged back to [facility] at this time. He is asking for his nighttime pain medicines, we will give a gram of Tylenol. I have extensively reviewed the treatment plan and discharge instructions with the patient. I have addressed all patient concerns at this time. The patient was made aware of what symptoms to monitor for that would warrant a return to the emergency department. Discussed the plan with the patient, they demonstrate verbal understanding and agreement with our assessment and plan at this time. The documentation in this chart was dictated using [employer] dictation software. Please excuse any dictation errors. Quality:SDOH Health Related Social Needs: Health related social needs material hardship(utilities) (Z59.12) Health related social needs details Noted PFSH All Active Problems (Updated 07/07/24 @ 01:42 by [place] DO) SHANTAL drain bleeding (Acute) Wound of left foot (Acute) Abscess of popliteal region (Acute) HTN (hypertension) (Chronic) Chronic pain (Chronic) Non-healing ulcer of left foot (Acute) Uncontrolled diabetes mellitus with hyperglycemia (Acute) Edema (Acute) Venous (peripheral) insufficiency (Acute) Atherosclerotic PVD with ulceration (Acute) PAD (peripheral artery disease) (Chronic) Diabetic foot ulcer (Acute) Erectile dysfunction (Acute) Phantom pain following amputation of lower limb (Acute) Type 2 diabetes mellitus with diabetic polyneuropathy, with long-term current use of insulin (Chronic) Memory loss due to medical condition (Acute) Craniopharyngioma (Acute) Chronic osteomyelitis involving right ankle and foot (Acute) Recurrent falls (Acute) Other chronic pain (Acute) Hypothyroidism (Chronic) Hyperplastic polyp of descending colon (Acute) Gastroesophageal reflux disease with esophagitis and hemorrhage (Acute) Gait instability (Acute) Failure to thrive in adult (Acute) Chronic deep vein thrombosis (DVT) (Chronic) Deep vein thrombosis (DVT) of proximal vein of left lower extremity (Acute) Benign prostatic hyperplasia (Chronic) Anemia (Chronic) Adjustment disorder with mixed anxiety and depressed mood (Chronic) Medical History (Updated 07/07/24 @ 01:42 by [place], DO) Abscess of popliteal region Chronic ulcer of left foot Ulcer of left foot with fat layer exposed Surgical History Status post total replacement of left hip History of right below knee amputation Family History Mother Alcohol use disorder Substance use disorder Father Alcohol use disorder Substance use disorder Cancer Social History Smoking/Tobacco Use Status: Former Tobacco Use tobacco type: smokeless tobacco Tobacco: How many years used: 30 Smokeless tobacco user: snuff Second Hand Exposure: Yes Smoking risk assessment performed?: Yes Alcohol Intake: never Drug use: Never Adopted: No Caregiver/Support person: No Foster care: No Household members: none Housing: apartment Number of Children: 2 number of grandchildren: 1 Communication Needs: None Education Level: high school Do you need help understanding health information?: Rarely current occupation: None Pets and animals: No Sexually active: No Do you think of yourself as: straight/heterosexual Current gender identity: male What is your relationship status?: How often do you talk on the phone with friends or family?: twice per week Do you belong to any clubs or organized social groups?: no Panel score (0-1 are the most socially isolated patients): 0 What type of physical activity do you participate in: additional Details: PT Excercises 2-3 times day Duration: 45-60 minutes/day Frequency: daily Lena/Scientology: [employer] Special lena needs: No Seatbelt use: always Helmet use: No (Never) Drive intox or ride w/intox [id number] tank driver: No POCUS Exam (ED) Limited Soft Tissue Exam DATE OF EXAM: 07/07/24 TIME OF EXAM: 03:03 PROVIDER THAT PERFORMED THE STUDY: [place] IS THIS A REPEAT EXAM DURING THIS ENCOUNTER: No LOCATION OF EXAM: Lower extremity/left REASON FOR EXAM: Other (Evaluation of drain, drain appears to be present in the left calf.) indication: SHANTAL drain evaluation VISUALIZED STRUCTURES: Fascia, Muscle, Skin, Subcutaneous tissue and Other (Evaluation of drain, drain appears to be present in the left calf.) structure: Evaluation of drain, drain appears to be present in the left calf. PERTINENT FINDINGS/IMPRESSION: Foreign body of soft tissue (Drain appears to be in place) Left calf/drain/SHANTAL drain and Hematoma Left calf . Exam Complete
[2024-07-07] MEDS: Acetaminophen 500 MG TAB 1000 MG PO (02:06)
[2024-07-07 02:09] VITALS: RESP 16
[2024-07-07 02:17] VITALS: BP 120/50; PULSE 90; RESP 16; O2SAT 96
== END 2024-07-07 02:18 | disposition skilled nursing facility (03) ==
PROVIDERS: Emergency Provider Student in an Organized Health Care Education/Training Program; PCP Family Medicine
DX: T85.838A Hemorrhage due to other internal prosthetic devices, implants and grafts, initial encounter (principal); Z59.12 Inadequate housing utilities; T81.89XA Other complications of procedures, not elsewhere classified, initial encounter
CPT/HCPCS: 99283; 99284; 76882

== ENCOUNTER 2024-07-10 10:00 | Emergency (ER) | payer MEDICARE, BC, SELFPAY ==
[2024-07-10] VITALS (17 sets, daily range): BP systolic 125–149; BP diastolic 66–83; PULSE 89–103; RESP 18; TEMP 36.2; O2SAT 95–97
--- NOTE | 2024-07-10 10:32 | W.ED.GENAD ---
Discharge Plan Disposition Patient Disposition: Home Condition: Stable Discharge Details Clinical Impression: Ham sanchez drain site pain Primary Care Provider: Franco Quick ED Provider: King Godfrey Home Meds and New Rx's Prescriptions: New clindamycin HCl 150 mg capsule 450 mg PO TID 7 Days Qty: 63 0RF Continued apixaban 5 mg tablet 5 mg PO BID Qty: 180 3RF atorvastatin 20 mg tablet 20 mg PO DAILY Qty: 90 3RF cholecalciferol (vitamin D3) 50 mcg (2,000 unit) capsule 50 mcg PO QHS Qty: 90 3RF gabapentin 300 mg capsule 300 mg PO TID Qty: 270 3RF insulin aspart U-100 [Novolog FlexPen U-100 Insulin] 100 unit/mL (3 mL) insulin pen 18 unit subcut TID Qty: 15 3RF Rx Instructions: with meals insulin glargine 100 unit/mL (3 mL) insulin pen 55 unit subcut QHS Qty: 15 6RF levothyroxine 112 mcg capsule 112 mcg PO DAILY Qty: 90 3RF losartan 25 mg tablet 25 mg PO DAILY Qty: 90 3RF magnesium oxide 400 mg (241.3 mg magnesium) tablet 400 mg PO DAILY Qty: 90 3RF metformin 500 mg tablet 1,000 mg PO BIDWMEAL Qty: 180 3RF Rx Instructions: With breakfast and dinner methocarbamol 500 mg tablet 500 mg PO Q8H PRN Qty: 90 3RF pantoprazole 40 mg tablet,delayed release (DR/EC) 40 mg PO .before breakfast Qty: 90 3RF sertraline 50 mg tablet 50 mg PO DAILY Qty: 90 3RF tamsulosin 0.4 mg capsule 0.4 mg PO DAILY Qty: 90 3RF oxycodone 5 mg tablet 5 mg PO TID MDD 15 mg PRN (Reason: pain) Qty: 15 0RF (DME) FreeStyle Hao 2 Sensor Kit See Rx Instructions .ROUTE .MEDSUPPLY Qty: 1 11RF Rx Instructions: As directed, test TID and prn (DME) FreeStyle Hao 2 [place] Misc See Rx Instructions .ROUTE .MEDSUPPLY Qty: 1 0RF Rx Instructions: As directed, TID and prn sildenafil 100 mg tablet 100 mg PO DAILY PRN (Reason: sexual activity) Qty: 30 3RF Rx Instructions: administer 30 minutes to 4 hours before activity (DME) diabetic shoes See Rx Instructions .Route .MEDSUPPLY Qty: 1 0RF Rx Instructions: As directed Santyl 250 unit/gram ointment 1 applic topical DAILY Qty: 90 0RF Rx Instructions: Ulcer measures 1.1 x 0.9 x 0.3 cm acetaminophen 500 mg capsule 500 mg PO Q6H (DME) pen needle, diabetic 31 gauge x 5/16 needle See Rx Instructions .Route Rx Instructions: As directed (DME) blood-glucose meter [FreeStyle [place] Lite] Kit See Rx Instructions .Route Rx Instructions: As directed blood glucose test stripts 1 ea XX DIRECTED PRN (DME) lancets [FreeStyle Lancets] 28 gauge misc See Rx Instructions .Route Rx Instructions: As directed magnesium hydroxide [Milk of Magnesia] 400 mg/5 mL suspension 5 ml PO DAILY PRN polyethylene glycol 3350 [ClearLax] 17 gram powder in packet 17 g PO QDAY PRN Eliquis 5 mg Tablet 5 mg PO BID Qty: 60 0RF Rx Instructions: Take 10 mg twice a day for( tonight, on 06/25, 06/26, 06/27) 7 doses Then on 06/28 start taking 5 mg twice a day until seen by your PCP acetaminophen 500 mg Tablet 1,000 mg PO Q6H Qty: 40 0RF insulin glargine [Lantus Solostar U-100 Insulin] 100 unit/mL (3 mL) Insulin Pen 25 unit subcut BID Qty: 15 0RF Discharge Instructions Instructions: Ham-Sanchez Drain, Clindamycin (Systemic) Additional Instructions: You were seen in the emergency department for the problem with your drain site from your left calf surgery. The drain is functioning properly we did flush it with 2 cc of saline and got positive return, you had scant drainage around the outside with some redness, I am placing you on clindamycin to cover MRSA for the next 7 days, you have a follow-up with [facility] interventional radiology on the , please take Tylenol as needed for pain, please return for any severe increase in infectious symptoms, red streaking outward from the area, fever, nausea or weakness. Referrals: Franco Quick DO [Primary Care Provider] - Discharge Data Discharge Date/Time-TO BE ENTERED AT DEPARTURE: 07/10/24 14:09 HPI General Date/Time Provider Initiated Documentation: 07/10/24 10:12. HPI Narrative: 63 year-old male presents to ED today by EMS from rehab facility with a chief complaint of possible SHANTAL drain problem- some leakage around the drain reported by staff, and mild redness at the site with onset upon changing dressing today. SHANTAL Drain was performed by [facility]. Quality described as not overly painful, patient didn't really notice a difference, feels the drain is still drainaing, no radiation to fever, gross swelling, leg pain, weakness. Severity is described as mild. Palliating factors include nothing specific attempted. Provoking factors include nothing specific. Patient is anticoagulated. Related Data Home Medications ?Medication ?Instructions ?Recorded ?Confirmed acetaminophen 500 mg capsule 500 mg PO Q6H 10/15/23 07/10/24 blood glucose test stripts 1 ea XX DIRECTED PRN 10/15/23 06/19/24 blood-glucose meter (FreeStyle 10/15/23 06/17/24 [place] Lite kit) lancets 28 gauge (FreeStyle 10/15/23 06/17/24 Lancets) pen needle, diabetic 31 gauge x 10/15/23 06/17/24 5/16 flash glucose scanning reader #1 ea 10/25/23 06/17/24 (FreeStyle Hao 2 [place]) flash glucose sensor (FreeStyle #1 ea 10/25/23 06/17/24 Hao 2 Sensor kit) apixaban 5 mg tablet 5 mg PO BID #180 tabs 11/09/23 07/10/24 atorvastatin 20 mg tablet 20 mg PO DAILY #90 tabs 11/09/23 07/10/24 cholecalciferol (vitamin D3) 50 50 mcg PO QHS #90 caps 11/09/23 07/10/24 mcg (2,000 unit) capsule gabapentin 300 mg capsule 300 mg PO TID #270 caps 11/09/23 07/10/24 insulin aspart U-100 100 unit/mL 18 unit (0.18 mL) subcut TID #15 mL 11/09/23 07/10/24 (3 mL) subcutaneous pen (Novolog FlexPen U-100 Insulin aspart) insulin glargine 100 unit/mL (3 55 unit (0.55 mL) subcut QHS #15 mL 11/09/23 07/10/24 mL) subcutaneous pen levothyroxine 112 mcg capsule 112 mcg PO DAILY #90 caps 11/09/23 07/10/24 losartan 25 mg tablet 25 mg PO DAILY #90 tabs 11/09/23 07/10/24 magnesium oxide 400 mg (241.3 mg 400 mg PO DAILY #90 tabs 11/09/23 07/10/24 magnesium) tablet metformin 500 mg tablet 1,000 mg (2 x 500 mg) PO BIDWMEAL 11/09/23 07/10/24 #180 tabs methocarbamol 500 mg tablet 500 mg PO Q8H PRN Pain or muscle 11/09/23 07/10/24 spasms #90 tabs pantoprazole 40 mg tablet,delayed 40 mg PO .before breakfast #90 tabs 11/09/23 07/10/24 release sertraline 50 mg tablet 50 mg PO DAILY #90 tabs 11/09/23 07/10/24 tamsulosin 0.4 mg capsule 0.4 mg PO DAILY #90 caps 11/09/23 07/10/24 sildenafil 100 mg tablet 100 mg PO DAILY PRN sexual 12/13/23 07/10/24 activity #30 tabs diabetic shoes #1 ea 02/28/24 06/17/24 collagenase clostridium histo. 250 1 applic topical DAILY #90 grams 03/19/24 06/19/24 unit/gram topical ointment (Santyl) oxycodone 5 mg tablet 5 mg PO TID PRN pain #15 tabs 06/17/24 07/10/24 acetaminophen 500 mg tablet 1,000 mg (2 x 500 mg) PO Q6H #40 06/24/24 07/10/24 tabs apixaban 5 mg tablet (Eliquis) 5 mg PO BID #60 tabs 06/24/24 07/10/24 insulin glargine 100 unit/mL (3 25 unit (0.25 mL) subcut BID #15 mL 06/24/24 07/10/24 mL) subcutaneous pen (Lantus Solostar U-100 Insulin) clindamycin HCl 150 mg capsule 450 mg (3 x 150 mg) PO TID 7 days 07/10/24 #63 caps magnesium hydroxide 400 mg/5 mL 5 ml PO DAILY PRN 07/10/24 07/10/24 oral suspension (Milk of Magnesia) polyethylene glycol 3350 17 gram 17 g PO QDAY PRN 07/10/24 07/10/24 oral powder packet (ClearLax) Previous Rx's ?Medication ?Instructions ?Recorded flash glucose scanning reader #1 ea 10/25/23 (FreeStyle Hao 2 [place]) flash glucose sensor (FreeStyle #1 ea 10/25/23 Hao 2 Sensor kit) apixaban 5 mg tablet 5 mg PO BID #180 tabs 11/09/23 atorvastatin 20 mg tablet 20 mg PO DAILY #90 tabs 11/09/23 cholecalciferol (vitamin D3) 50 50 mcg PO QHS #90 caps 11/09/23 mcg (2,000 unit) capsule gabapentin 300 mg capsule 300 mg PO TID #270 caps 11/09/23 insulin aspart U-100 100 unit/mL 18 unit (0.18 mL) subcut TID #15 mL 11/09/23 (3 mL) subcutaneous pen (Novolog FlexPen U-100 Insulin aspart) insulin glargine 100 unit/mL (3 55 unit (0.55 mL) subcut QHS #15 mL 11/09/23 mL) subcutaneous pen levothyroxine 112 mcg capsule 112 mcg PO DAILY #90 caps 11/09/23 losartan 25 mg tablet 25 mg PO DAILY #90 tabs 11/09/23 magnesium oxide 400 mg (241.3 mg 400 mg PO DAILY #90 tabs 11/09/23 magnesium) tablet metformin 500 mg tablet 1,000 mg (2 x 500 mg) PO BIDWMEAL 11/09/23 #180 tabs methocarbamol 500 mg tablet 500 mg PO Q8H PRN Pain or muscle 11/09/23 spasms #90 tabs pantoprazole 40 mg tablet,delayed 40 mg PO .before breakfast #90 tabs 11/09/23 release sertraline 50 mg tablet 50 mg PO DAILY #90 tabs 11/09/23 tamsulosin 0.4 mg capsule 0.4 mg PO DAILY #90 caps 11/09/23 sildenafil 100 mg tablet 100 mg PO DAILY PRN sexual 12/13/23 activity #30 tabs diabetic shoes #1 ea 02/28/24 collagenase clostridium histo. 250 1 applic topical DAILY #90 grams 03/19/24 unit/gram topical ointment (Santyl) oxycodone 5 mg tablet 5 mg PO TID PRN pain #15 tabs 06/17/24 acetaminophen 500 mg tablet 1,000 mg (2 x 500 mg) PO Q6H #40 06/24/24 tabs apixaban 5 mg tablet (Eliquis) 5 mg PO BID #60 tabs 06/24/24 insulin glargine 100 unit/mL (3 25 unit (0.25 mL) subcut BID #15 mL 06/24/24 mL) subcutaneous pen (Lantus Solostar U-100 Insulin) clindamycin HCl 150 mg capsule 450 mg (3 x 150 mg) PO TID 7 days 07/10/24 #63 caps Allergies Allergy/AdvReac Type Severity Reaction Status Date / Time No Known Allergies Allergy Verified 07/10/24 10:08 General Stated Complaint: Cellulitis FARHANA: 3 Review of Systems All systems reviewed & are unremarkable except as noted in HPI and below Exam Narrative Exam Narrative: GENERAL APPEARANCE: Well-nourished, non-toxic, awake and alert, atraumatic, no acute distress. SKIN: Warm, pink, dry, intact, without rashes/lesions/ulcerations. HEAD: Normocephalic, atraumatic, normal hair distribution for gender/age. EYES: Normal conjunctiva, no exudates on lids/lashes. ENT: Nares patent, no circumoral cyanosis, no facial swelling NECK: Supple, trachea midline, painless cervical ROM. LUNGS/CHEST: Lungs CTA bilaterally- no rhonchi/rales/wheezes diffusely, non-labored respirations, normal A/P diameter, symmetrical expansion, no chest wall deformity HEART (CV/PV): Regular rate and rhythm without murmur, no peripheral edema, no JVD. ABDOMEN: Soft, non-distended, no guarding. MSK: Normal ROM, chronic BKA of R leg, L leg has SHANTAL drain in place, scant drainage around site on bandages, no lymphadenitis, no fluctuant swelling or fox erythema, moving all extremities without weakness, no cyanosis, spine midline without tenderness, normal curvature. NEURO: Mental Status AAOx4 - alert to person, place, time, events No facial droop, no forehead involvement. Motor: No focal weakness - strength 5/5 in bilateral UEs and LEs, proximal and distal, symmetric. Sensory: sensation intact to light touch globally. Gait NT. PSYCH: euthymic, cooperative, pleasant, appropriate speech Course Vital Signs Vital signs: Vital Signs Temperature 36.2 C L 07/10/24 10:02 Pulse 91 H 07/10/24 10:02 Respiratory Rate 18 07/10/24 10:02 Blood Pressure 137/76 07/10/24 10:02 Pulse Oximetry 97 07/10/24 10:02 Temperature 36.2 C L 07/10/24 10:02 Pulse 91 H 07/10/24 10:02 Respiratory Rate 18 07/10/24 10:02 Blood Pressure 137/76 07/10/24 10:02 Pulse Oximetry 97 07/10/24 10:02 Oxygen Delivery Method Room Air 07/10/24 10:02 Oxygen Flow Rate 0 07/10/24 10:02 Medical Decision Making This dictation utilizes [id number] dictation software and may contain unedited grammatical errors. 63 year-old male presents to ED today by EMS from rehab facility with a chief complaint of possible SHANTAL drain problem- some leakage around the drain reported by staff, and mild redness at the site with onset upon changing dressing today. SHANTAL Drain was performed by [facility]. Quality described as not overly painful, patient didn't really notice a difference, feels the drain is still drainaing, no radiation to fever, gross swelling, leg pain, weakness. Severity is described as mild. Palliating factors include nothing specific attempted. Provoking factors include nothing specific. Patients' medical history: Popliteal abscess to this area, hypertension, venous insufficiency, peripheral artery disease, T2DM, memory loss. Family and social history: Lives at [facility], no EtOH or illicit substances. Pertinent exam findings / vital signs include SHANTAL drain in place to posterior left calf with scant drainage on changed bandages this morning, no significant erythema or lymphadenitis, drain appears to be adequately draining at this time. Differential / pathologies of concern include SHANTAL drain problem, obstructed drain, cellulitis. Diagnostic studies of: - CBC, CMP, lactate, procalcitonin. - CBC shows no leukocytosis, shows mild anemia - CMP without actionable abnormality - Lactate and procalcitonin negative Interventions of: - Discussed with [facility] on-call, they recommend flushing with 2 cc of saline, if low concern, I did discuss starting the patient on antibiotics, they have a follow-up appointment at 1 week, agrees with plan. ED Course/Assessment/Plan: 63-year-old male presents with reported SHANTAL drain leakage but is draining by the time he arrives here, he has some scant bloody mucousy drainage on the freshly changed bandage but appears to be working properly, we flushed with 2 cc of saline and good return, no signs of lymphadenitis or severe infection or worsening abscess or swelling to the area, I did start the patient on clindamycin due to known MRSA from culture results at [facility] and they will follow-up with him in an appointment at 1 week, strict return criteria for any acute worsening or any other emergent concerns. Findings not consistent with sepsis, obstructed SHANTAL drain. Disposition of Ham Sanchez drain site pain. Patient verbalized understanding of the plan and return to ED criteria and engaged in shared decision making. Medical Records Medical records reviewed: Yes I reviewed the patient's medical records. Lab Data Lab results reviewed: Yes I reviewed the patient's lab results. Labs: Laboratory Tests Range/Units 07/10/24 11:11 WBC (4.4-10.8) 10^3/uL 9.36 RBC (4.36-5.78) 10^6/uL 3.49 L Hgb (13.5-17.5) g/dL 10.7 L Hct (40.0-50.0) % 32.4 L MCV (80-95) fL 93 MCH (27.0-33.0) pg 30.7 MCHC (32.0-36.0) % 33.0 RDW (11.8-14.1) % 12.6 Plt Count (130-400) 10^3/uL 416 H MPV (8.0-11.0) fL 8.4 Immature Gran % % 0.4 Neutrophils % % 70.2 Lymphocytes % % 21.9 Monocytes % % 5.1 Eosinophils % % 1.8 Basophils % % 0.6 Nucleated RBC % (0.0-0.3) % 0.0 Absolute Neutrophils (1.2-6.7) 10^3/uL 6.56 Absolute Lymphocytes (1.2-3.4) 10^3/uL 2.05 Absolute Monocytes (0.1-0.8) 10^3/uL 0.48 Absolute Eosinophils (0.0-0.7) 10^3/uL 0.17 Absolute Basophils (0.0-0.2) 10^3/uL 0.06 VBG Lactate (<or=2.0) mmol/L 1.7 Sodium (136-145) mmol/L 139 Potassium (3.5-5.1) mmol/L 4.2 Chloride (98-107) mmol/L 100 Carbon Dioxide (21.0-32.0) mmol/L 32.7 H Anion Gap (3-11) mmol/L 6.3 BUN (7-18) mg/dL 18 Creatinine (0.70-1.30) mg/dL 0.9 Est GFR (CKD-EPI 2020) (mL/min/1.73m2) 96.57 Glucose (74-106) mg/dL 82 Calcium (8.5-10.1) mg/dL 9.4 Total Bilirubin (0.2-1.0) mg/dL 0.2 AST (15-37) U/L 14 L ALT (16-63) U/L 12 L Alkaline Phosphatase (46-116) U/L 90 Total Protein (6.4-8.2) g/dL 9.6 H Albumin (3.4-5.0) g/dL 2.4 L Procalcitonin ng/mL < 0.10 Quality:SDOH Health Related Social Needs: Health related social needs material hardship(utilities) (Z59.12) Health related social needs details Noted PFSH All Active Problems (Updated 07/10/24 @ 13:29 by ANTONIO Chaudhari) Ham sanchez drain site pain (Acute) SHANTAL drain bleeding (Acute) Wound of left foot (Acute) Abscess of popliteal region (Acute) HTN (hypertension) (Chronic) Chronic pain (Chronic) Non-healing ulcer of left foot (Acute) Uncontrolled diabetes mellitus with hyperglycemia (Acute) Edema (Acute) Venous (peripheral) insufficiency (Acute) Atherosclerotic PVD with ulceration (Acute) PAD (peripheral artery disease) (Chronic) Diabetic foot ulcer (Acute) Erectile dysfunction (Acute) Phantom pain following amputation of lower limb (Acute) Type 2 diabetes mellitus with diabetic polyneuropathy, with long-term current use of insulin (Chronic) Memory loss due to medical condition (Acute) Craniopharyngioma (Acute) Chronic osteomyelitis involving right ankle and foot (Acute) Recurrent falls (Acute) Other chronic pain (Acute) Hypothyroidism (Chronic) Hyperplastic polyp of descending colon (Acute) Gastroesophageal reflux disease with esophagitis and hemorrhage (Acute) Gait instability (Acute) Failure to thrive in adult (Acute) Chronic deep vein thrombosis (DVT) (Chronic) Deep vein thrombosis (DVT) of proximal vein of left lower extremity (Acute) Benign prostatic hyperplasia (Chronic) Anemia (Chronic) Adjustment disorder with mixed anxiety and depressed mood (Chronic) Medical History (Updated 07/10/24 @ 13:29 by ANTONIO Chaudhari) Abscess of popliteal region Chronic ulcer of left foot Ulcer of left foot with fat layer exposed Surgical History Status post total replacement of left hip History of right below knee amputation Family History Mother Alcohol use disorder Substance use disorder Father Alcohol use disorder Substance use disorder Cancer Social History Smoking/Tobacco Use Status: Former Tobacco Use tobacco type: smokeless tobacco Tobacco: How many years used: 30 Smokeless tobacco user: snuff Second Hand Exposure: Yes Smoking risk assessment performed?: Yes Alcohol Intake: never Drug use: Rarely Substance use type: marijuana Details: consumes THC gummies Adopted: No Caregiver/Support person: No Foster care: No Household members: none Housing: apartment Number of Children: 2 number of grandchildren: 1 Communication Needs: None Education Level: high school Do you need help understanding health information?: Rarely current occupation: None Pets and animals: No Sexually active: No Do you think of yourself as: straight/heterosexual Current gender identity: male What is your relationship status?: How often do you talk on the phone with friends or family?: twice per week Do you belong to any clubs or organized social groups?: no Panel score (0-1 are the most socially isolated patients): 0 What type of physical activity do you participate in: additional Details: PT Excercises 2-3 times day Duration: 45-60 minutes/day Frequency: daily Lena/Gnosticist: Taoist Special lena needs: No Seatbelt use: always Helmet use: No (Never) Drive intox 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
[2024-07-10 11:18] LABS: Lactate 1.7 mmol/L (<or=2.0)
[2024-07-10 11:19] LABS: Abs Immature Grans 0.04 10^3/uL (0.0-0.06); Absolute Basophil Count 0.06 10^3/uL (0.0-0.2); Absolute Eosinophil Count 0.17 10^3/uL (0.0-0.7); Absolute Lymphocyte Count 2.05 10^3/uL (1.2-3.4); Absolute Monocyte Count 0.48 10^3/uL (0.1-0.8); Absolute Neutrophil Count 6.56 10^3/uL (1.2-6.7); Basophils % 0.6 %; Eosinophils % 1.8 %; HCT 32.4 % (40.0-50.0); HGB 10.7 g/dL (13.5-17.5); Immature Grans % 0.4 %; Lymphocytes % 21.9 %; MCH 30.7 pg (27.0-33.0); MCV 93 fL (80-95); MPV 8.4 fL (8.0-11.0); Monocytes % 5.1 %; Neutrophils % 70.2 %; Platelet Count 416 10^3/uL (130-400); RBC 3.49 10^6/uL (4.36-5.78); RDW 12.6 % (11.8-14.1); RDW-SD 42.3 fL; WBC 9.36 10^3/uL (4.4-10.8)
[2024-07-10 11:37] LABS: ALT 12 U/L (16-63); AST 14 U/L (15-37); Albumin 2.4 g/dL (3.4-5.0); Alkaline Phosphatase 90 U/L (46-116); Anion Gap 6.3 mmol/L (3-11); BUN 18 mg/dL (7-18); Bilirubin, Total 0.2 mg/dL (0.2-1.0); CO2 32.7 mmol/L (21.0-32.0); CREATININE 0.9 mg/dL (0.70-1.30); Calcium 9.4 mg/dL (8.5-10.1); Chloride 100 mmol/L (98-107); Estimated GFR 96.57 (mL/min/1.73m2); Glucose 82 mg/dL (74-106); Potassium 4.2 mmol/L (3.5-5.1); Sodium 139 mmol/L (136-145); Total Protein 9.6 g/dL (6.4-8.2)
[2024-07-10 11:59] LABS: Procalcitonin < 0.10 ng/mL
--- NOTE | 2024-07-10 12:36 | NUR.NOTE ---
Nursing Note: Flushed SHANTAL drain with 2ml NS per provider orders, tube patent draining clear red fluid, no leaking around SHANTAL at insertion site noted at this time
== END 2024-07-10 14:09 | disposition home or self-care (01) ==
PROVIDERS: Emergency Provider Physician Assistant; PCP Family Medicine
DX: Z98.890 Other specified postprocedural states (principal); G89.18 Other acute postprocedural pain
CPT/HCPCS: 99284; 99283; 80053; 84145; 83605; 85025

== ENCOUNTER 2024-10-31 08:45 | Day surgery (SDC) | payer MEDICARE, BC, SELFPAY ==
[2024-10-31 08:50] VITALS: BP 117/86; PULSE 95; RESP 16; TEMP 36.3; O2SAT 95
[2024-10-31] MEDS: Tropicam./Phenyleph. (1/2.5%) 5 ML BTL OD ×3 (09:13→09:40)
--- NOTE | 2024-10-31 09:20 | ANES.PREOP_ITS ---
General Info Date of Service Date Performed: 10/31/24 Height: 6 ft 2 in Weight: 107.2 kg Body Mass Index (BMI): 30.3 Surgical Procedure: Operation Date: 10/31/24 10:40 Proposed Procedure Side Surgeon p Cataract Extraction with IOL Implant Right Elie Lucas MD Meds Allergies and Home Medications Allergies Allergy/AdvReac Type Severity Reaction Status Date / Time No Known Allergies Allergy Verified 10/31/24 09:16 Home Medication ?Medication ?Instructions ?Recorded blood glucose test stripts 1 ea XX DIRECTED PRN 02/25 blood-glucose meter (FreeStyle 10/15/23 [place] Lite kit) lancets 28 gauge (FreeStyle 10/15/23 Lancets) pen needle, diabetic 31 gauge x 10/15/23 5/16 flash glucose scanning reader #1 ea 10/25/23 (FreeStyle Hao 2 [place]) flash glucose sensor (FreeStyle #1 ea 10/25/23 Hao 2 Sensor kit) magnesium oxide 400 mg (241.3 mg 400 mg PO DAILY #90 t abs 11/09/23 magnesium) tablet diabetic shoes #1 ea 02/28/24 collagenase clostridium histo. 250 1 applic topical DA LULU #90 grams 03/19/24 unit/gram topical ointment (Santyl) magnesium hydroxide 400 mg/5 mL 5 ml PO DAILY PRN 050 10/27 oral suspension (Milk of Magnesia) polyethylene glycol 3350 17 gram 17 g PO QDAY PRN 05/0 10/27 oral powder packet (ClearLax) acetaminophen 500 mg tablet 1,000 mg (2 x 500 mg) PO . Q8hrs #0 08/05/24 tabs gabapentin 400 mg capsule 400 mg PO TID 08/05/24 apixaban 5 mg tablet 5 mg PO BID #180 tabs atorvastatin 20 mg tablet 20 mg PO DAILY #90 tabs 10/04 04/29 cholecalciferol (vitamin D3) 50 50 mcg PO QHS #90 caps 10/24/24 mcg (2,000 unit) capsule insulin aspart U-100 100 unit/mL 18 unit (0.18 mL) sub cut TID #15 mL 10/24/24 (3 mL) subcutaneous pen (Novolog FlexPen U-100 Insulin aspart) levothyroxine 112 mcg capsule 112 mcg PO DAILY #90 cap s 10/24/24 losartan 25 mg tablet 25 mg PO DAILY #90 tabs 10/04 04/29 metformin 500 mg tablet 1,000 mg (2 x 500 mg) PO BID WMEAL 10/24/24 #180 tabs methocarbamol 500 mg tablet 500 mg PO Q8H PRN Pain or muscle 10/24/24 spasms #90 tabs pantoprazole 40 mg tablet,delayed 40 mg PO .before francesca akfast #90 tabs 10/24/24 release sertraline 50 mg tablet 50 mg PO DAILY #90 tabs 10/04 04/29 tamsulosin 0.4 mg capsule 0.4 mg PO DAILY #90 caps insulin glargine 100 unit/mL (3 55 unit subcut HS 10/04 10/27 mL) subcutaneous pen (Lantus Solostar U-100 Insulin) Current Visit Medications: Current Medications Generic Name Dose Route Start Last Admin Trade Name Freq PRN Reason Stop Dose Admin Acetaminophen 1,000 mg 10/31/24 06:00 Acetaminophen 500 Mg Tab PO 11/30/24 05:59 Q4H PRN PRN Balanced Salt Solution 500 ml 10/31/24 06:00 Balanced Salt Soln.-Plus 500 Ml Bag OP 11/30/24 05:59 DIRECTED [facility] Miscellaneous Medication 0 ml 10/31/24 06:00 Prednisolone 1%, Moxifloxacin 0.5%, Bromfenac 0.09% 5.6ml Btl OD 11/30/24 05:59 DIRECTED [facility] Miscellaneous Medication 0 ml 10/31/24 06:00 10/31/24 09:13 Tropicam./Phenyleph. (1/2.5%) 5 Ml Btl OD 11/30/24 05:59 1 drp DIRECTED ROSHAN Administration Tetracaine HCl 0 ml 10/31/24 06:00 Tetracaine 0.5% 4 Ml Btl OD 11/30/24 05:59 DIRECTED [facility] PFSH Active Problems Active Problems: Problem Status Onset Code Posterior subcapsular age-related cataract, right eye Acute H25.041 Nuclear age-related cataract, right eye Acute H25.11 Wound of left foot Acute S91.302A Abscess of popliteal region Acute L02.419 HTN (hypertension) Chronic I10 Chronic pain Chronic G89.29 Non-healing ulcer of left foot Acute L97.529 Uncontrolled diabetes mellitus with hyperglycemia Acute E11.65 Edema Acute R60.9 Venous (peripheral) insufficiency Acute I87.2 Atherosclerotic PVD with ulceration Acute I70.209, L98.499 PAD (peripheral artery disease) Chronic I73.9 Diabetic foot ulcer Acute E11.621, L97.509 Erectile dysfunction Acute N52.9 Phantom pain following amputation of lower limb Acute G54.6 Type 2 diabetes mellitus with diabetic polyneuropathy, with long-term current use of insulin Chronic E11.42, Z79.4 Memory loss due to medical condition Acute R41.3 Craniopharyngioma Acute D44.4 Chronic osteomyelitis involving right ankle and foot Acute M86.671 Recurrent falls Acute R29.6 Other chronic pain Acute G89.29 Hypothyroidism Chronic E03.9 Hyperplastic polyp of descending colon Acute K63.5 Gastroesophageal reflux disease with esophagitis and hemorrhage Acute K21.01 Gait instability Acute R26.81 Failure to thrive in adult Acute R62.7 Chronic deep vein thrombosis (DVT) Chronic I82.509 Deep vein thrombosis (DVT) of proximal vein of left lower extremity Acute I82.4Y2 Benign prostatic hyperplasia Chronic N40.0 Anemia Chronic D64.9 Adjustment disorder with mixed anxiety and depressed mood Chronic F43.23 Medical History Medical History Abscess of popliteal region Chronic ulcer of left foot Per pt. 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 Tobacco Smoking/Tobacco Use Status: Former Tobacco Use Smokeless tobacco user: snuff Passive smoking exposure: Yes Second hand exposure: Yes Alcohol Alcohol Intake: never Substance Use Substance use: Rarely Substance use type: marijuana Details: consumes THC gummies Vital Signs and Lab Results Vital Signs Most Recent Vital Signs in EMR: Most Recent Vital Signs Temp Pulse Resp BP Pulse Ox 36.3 C L 95 H 16 117/86 95 10/31/24 08:50 10/31/24 08:50 10/31/24 08:50 10/31/24 08:50 10/31/24 08:50 Lab Results Complete Metabolic Panel: Hemoglobin A1c, (4.5-5.7) > 14 % H 10/24/24, 14:2 6 Anesthesia Assessment and Plan Anesthesia History Personal History: No History of Anesthesia Complications Family History: No Family History of Anesthesia Complications Exercise Tolerance Exercise Tolerance: Metabolic Equivalents>4 Pertinent Negatives Pertinent Negatives: No Symptoms of GERD Cardiac & Pulmonary Exam Cardiac Exam: Normal S1/S2 Heart Sounds Pulmonary Exam: Clear Bilateral Breath Sounds Implantable Cardiac Device Does patient have a Pacemaker or an ICD?: No Airway Exam Known Difficult Airway: No Mallampati Class: 2 Mouth Opening: Normal (> 3cm) Thyromental Distance: Greater than 3 cm Neck Range of Motion: Full ROM Neck Circumference: Normal Teeth Condition: Normal Dentition ASA Classification ASA Score: ASA 3 Emergency Case?: No NPO Status NPO Status: NPO Clears >2 hours, Solids >8 hours Anesthesia Plan Resuscitation Status: Full Code Anesthesia Technique: MAC Anesthesia Airway Planned: Natural Airway Monitors Used: Standard Monitors
[2024-10-31 09:26] VITALS: BMI 30.3
[2024-10-31] MEDS: Moxifloxacin-PF 1 MG/ML VIAL (09:56)
[2024-10-31] MEDS: Lidocaine 1% Pres-Free 5 ML VIAL (09:56)
[2024-10-31] MEDS: Phenylephrine/Lidocaine (15/10) MG/ML 1 ML VIAL (09:57)
[2024-10-31] MEDS: Duovisc Viscoelastic System EACH 1 EACH (09:59)
[2024-10-31] MEDS: Povidone-Iodine Ophth 30 ML BTL (09:59)
[2024-10-31] MEDS: Balanced Salt Soln.-PLUS 500 ML BAG OP (10:00)
[2024-10-31] MEDS: Prednisolone 1%, Moxifloxacin 0.5%, Bromfenac 0.09% 5.6ML BTL OD (10:00)
[2024-10-31] MEDS: Tetracaine 0.5% 4 ML BTL OD (10:01)
[2024-10-31] MEDS: Trypan Blue 0.06% 0.5 ML SYR (10:06)
[2024-10-31 10:22] VITALS: BP 112/76; PULSE 80; RESP 16; TEMP 36.5; O2SAT 96
--- NOTE | 2024-10-31 10:22 | W.PM.DSUDISC ---
Date of service: 10/31/24 Discharge Plan Disposition Patient Disposition: Home Discharge Details Attending Provider: Elie Lucas Primary Care Provider: Franco Quick Home Meds and New Rx's Prescriptions: No Action magnesium oxide 400 mg (241.3 mg magnesium) tablet 400 mg PO DAILY Qty: 90 3RF (DME) FreeStyle Hao 2 Sensor Kit See Rx Instructions .ROUTE .MEDSUPPLY Qty: 1 11RF Rx Instructions: As directed, test TID and prn (DME) FreeStyle Hao 2 [place] Misc See Rx Instructions .ROUTE .MEDSUPPLY Qty: 1 0RF Rx Instructions: As directed, TID and prn (DME) diabetic shoes See Rx Instructions .Route .MEDSUPPLY Qty: 1 0RF Rx Instructions: As directed Santyl 250 unit/gram ointment 1 applic topical DAILY Qty: 90 0RF Rx Instructions: Ulcer measures 1.1 x 0.9 x 0.3 cm apixaban 5 mg tablet 5 mg PO BID Qty: 180 3RF atorvastatin 20 mg tablet 20 mg PO DAILY Qty: 90 3RF cholecalciferol (vitamin D3) 50 mcg (2,000 unit) capsule 50 mcg PO QHS Qty: 90 3RF insulin aspart U-100 [Novolog FlexPen U-100 Insulin] 100 unit/mL (3 mL) insulin pen 18 unit subcut TID Qty: 15 3RF Rx Instructions: with meals levothyroxine 112 mcg capsule 112 mcg PO DAILY Qty: 90 3RF losartan 25 mg tablet 25 mg PO DAILY Qty: 90 3RF metformin 500 mg tablet 1,000 mg PO BIDWMEAL Qty: 180 3RF Rx Instructions: With breakfast and dinner methocarbamol 500 mg tablet 500 mg PO Q8H PRN Qty: 90 3RF pantoprazole 40 mg tablet,delayed release (DR/EC) 40 mg PO .before breakfast Qty: 90 3RF sertraline 50 mg tablet 50 mg PO DAILY Qty: 90 3RF tamsulosin 0.4 mg capsule 0.4 mg PO DAILY Qty: 90 3RF (DME) pen needle, diabetic 31 gauge x 5/16 needle See Rx Instructions .Route Rx Instructions: As directed (DME) blood-glucose meter [FreeStyle [place] Lite] Kit See Rx Instructions .Route Rx Instructions: As directed blood glucose test stripts 1 ea XX DIRECTED PRN (DME) lancets [FreeStyle Lancets] 28 gauge misc See Rx Instructions .Route Rx Instructions: As directed acetaminophen 500 mg tablet 1,000 mg PO .Q8hrs Qty: 0 0RF gabapentin 400 mg capsule 400 mg PO TID magnesium hydroxide [Milk of Magnesia] 400 mg/5 mL suspension 5 ml PO DAILY PRN polyethylene glycol 3350 [ClearLax] 17 gram powder in packet 17 g PO QDAY PRN insulin glargine [Lantus Solostar U-100 Insulin] 100 unit/mL (3 mL) insulin pen 55 unit subcut HS Discharge Instructions Stand Alone Forms: DSU Post-Op Cataract, Mainor Márquez (DSU) Discharge Orders Discharge Orders: Discharge Order (Routine); Ordered 10/31/24 Ordered By: Elie Lucas DS: Diagnosis Discharge Diagnosis (1) Posterior subcapsular age-related cataract, right eye: Status: Resolved (2) Nuclear age-related cataract, right eye: Status: Resolved
--- NOTE | 2024-10-31 10:23 | W.PM.OP ---
Operative Note Operative Note PRE-OP DIAGNOSIS: Nuclear/posterior subcapsular cataract, right eye POST-OP DIAGNOSIS: same PROCEDURE: Cataract extraction using phacoemulsification with intraocular lens implant, right eye SURGEON: Elie Lucas ANESTHESIA TYPE: Local By Surgeon and MAC Refer to Anesthesia Record ESTIMATED BLOOD LOSS: 0 PATHOLOGY: none sent COMPLICATIONS: None Patient was transported to: same day Patient's condition: stable Implants: Jeff Clareon [id number] Indications: Progressive decreased vision due to cataract, right eye Procedure Description: CATARACT SURGERY OPERATIVE REPORT PREOPERATIVE DIAGNOSIS: Nuclear/posterior subcapsular cataract, right eye POSTOPERATIVE DIAGNOSIS: Same OPERATION: Cataract extraction using phacoemulsification with posterior chamber intraocular lens implant, right eye. IOL: IOL Adjuster/Model: Jeff Clareon [id number] IOL Power: + 19.5 diopters IOL Serial Number: [id number] Optic Diameter: 6.0mm Haptic/Overall Diameter: 13.0mm PHACO INFO: Jeff Intellect Neurosciencesurion Vision System with OZil and Active Fluidics Cumulative Dispersed Energy (CDE): 14.11 seconds SURGEON: Elie Lucas MD, PRITI ANESTHESIA: Monitored Anesthesia Care (MAC), with local sub-tenon's anesthetic infiltration COMPLICATIONS: None SPECIMENS: None INDICATIONS FOR PROCEDURE: The patient is a 63-year-old male with history of diminished visual acuity in his right eye secondary to the development of nuclear/posterior subcapsular cataract. He is significantly symptomatic that he desires cataract surgery in attempt to improve and maximize his vision. The option of cataract surgery was offered to the patient and he wished to proceed. See office notes for detailed information. PROCEDURE: The correct surgical eye was identified and marked as the right eye and the pupil was dilated in the preoperative area using mydriatics and cycloplegics. The dilated pupil size was 5.0 mm. Posterior synechia were present at the 1:00 and 7 o'clock position, causing the pupil to assume a horizontal figure 8 appearance. Oral sedation was administered in the form of an Imprimis MKO Melt (midazolam 3mg/ketamine 25mg/ondansetron 2mg). . The patient was brought to the operating room where cardiopulmonary monitoring was instituted and surgical time-out was performed, confirming the correct operative eye and IOL power. Topical anesthesia was administered and ophthalmic povidone-iodine 5% was instilled into the conjunctival fornices. The renan-ocular area was prepped with Betadine 10% solution and draped in the usual sterile fashion for intraocular surgery, including an aperture drape. A Tegaderm transparent film dressing was cut in half and used to cover the lashes and lid margins. Care was taken to sequester the lashes and lid margins under the Tegaderm dressing. A lid speculum was placed between the lids of the operative eye and the Jeff LuxOR Revalia operating microscope was maneuvered into position. Tiarra scissors were then used to make a conjunctival buttonhole approximately 6mm posterior to the limbus in the inferonasal quadrant. Blunt dissection was carried out to expose bare sclera, and a blunt-tipped sub-tenon?s anesthesia cannula was introduced and passed posteriorly along the globe where non-preserved plain lidocaine was injected into posterior sub-Tenon?s space. A sideport knife was used to make a paracentesis port. VisionBlue was injected into the anterior chamber and allowed to sit for 30 seconds. Intraocular phenylephrine/lidocaine was injected into the anterior chamber. The anterior chamber was then filled with viscoelastic. The viscoelastic cannula was used to break the posterior synechia, resulting in a dilated pupil size of approximately 6 mm. A keratome knife was used to construct a two--plane clear corneal tunnel extending 2.0mm into clear cornea. A flap was raised on the anterior capsule and capsulorhexis forceps were used to complete a continuous curvilinear capsulorhexis of 5.5 mm. Balanced salt solution was then used to perform cortical cleaving hydrodissection and nuclear hydrodelineation until the lens could be freely rotated within the capsular bag. The lens nucleus was then disassembled and removed within the capsular bag and iris plane using phacoemulsification. Residual cortical material was removed using the I/A handpiece. The posterior capsule was carefully polished to remove as much residual lens epithelial cells as safely possible. The capsular bag was then inflated and the anterior chamber deepened with cohesive viscoelastic. The lens implant described above was inserted into the capsular bag using the Jeff Autonome Injector. A Kuglen hook was used to dial the IOL into position. Residual viscoelastic was then removed first from posterior to the IOL, then from the anterior chamber using the I/A handpiece. The lens implant was noted to center nicely within the capsular bag. The incisions were stromally hydrated, and the anterior chamber was reformed using BSS. Then 0.5cc of moxifloxacin 1.0mg/ml were injected into the capsular bag and anterior chamber. The incisions were checked with a Weck spear and found to be secure. Several drops of ophthalmic povidone-iodine 5% were then applied to the eye followed by two drops of combination steroid/NSAID/antibiotic solution. The drapes were removed and a clear plastic protective eye shield was placed over the eye. The patient was then returned to Same Day Surgery in stable condition. Date of Procedure: 10/31/24
--- NOTE | 2024-10-31 10:30 | W.ANESPOSTOP ---
Postoperative Evaluation Date, Time and Location Date Performed: 10/31/24 Time Performed: 10:30 Patient Location: Day Surgery Unit Vital Signs Most Recent Imported Vital Signs: Most Recent Vital Signs Temp Pulse Resp BP Pulse Ox 36.5 C 80 16 112/76 96 10/31/24 10:22 10/31/24 10:22 10/31/24 10:22 10/31/24 10:22 10/31/24 10:22 Pain Score Most Recent Pain Score: Most Recent Pain Score Pain Level 0 10/31/24 10:22 Assessment Mental Status: Awake (Alert & Oriented to Patient Baseline) Airway and Respiratory Function: Patent airway with normal (patient baseline) respiratory exam Cardiovascular Function: Hemodynamically Stable Hydration Status: Adequately Hydrated Nausea & Vomiting: No Nausea or Vomiting Pain: Pt. Denies Any Pain Peripheral Nerve Block: Patient did not receive a nerve block
[2024-10-31 11:00] VITALS: BP 113/75; PULSE 84; RESP 16; TEMP 36.4; O2SAT 97
== END 2024-10-31 11:30 | disposition home or self-care (01) ==
LOC: SUR 08:45
PROVIDERS: PCP Family Medicine; Visit Provider Ophthalmology
PROC: (CPT 66984; principal; 2024-10-31 10:30)
DX: H25.041 Posterior subcapsular polar age-related cataract, right eye (principal); H25.11 Age-related nuclear cataract, right eye
CPT/HCPCS: 66984; 00123; V2632; J2003

== ENCOUNTER 2024-11-14 09:32 | Day surgery (SDC) | payer MEDICARE, BC, SELFPAY ==
[2024-11-14] MEDS: Tropicam./Phenyleph. (1/2.5%) 5 ML BTL OS ×2 (10:21→10:29)
[2024-11-14 10:22] VITALS: BP 108/80; PULSE 106; RESP 22; TEMP 36.2; O2SAT 98
--- NOTE | 2024-11-14 10:52 | ANES_ITS ---
Date of service: 11/14/24 Time of Service: 10:32 Anesthesia Note Report Anesthesia Note: Patient with BGL of 453, rechecked at 434. Patient has been off his anti- hyperglycemics for 6 weeks. Discussed severity of current BGL. Discussed that I feel he needs to be optimized prior to proceeding with his cataract surgery. I am ordering a CMP for confirmation and starting his workup. I will reinforce his need to go to the ED. I am going to stop back and discuss this with him again.
[2024-11-14 11:37] LABS: ALT 23 U/L (16-63); AST 18 U/L (15-37); Albumin 3.7 g/dL (3.4-5.0); Alkaline Phosphatase 92 U/L (46-116); Anion Gap 6.4 mmol/L (3-11); BUN 8 mg/dL (7-18); Bilirubin, Total 0.6 mg/dL (0.2-1.0); CO2 29.6 mmol/L (21.0-32.0); Calcium 9.4 mg/dL (8.5-10.1); Chloride 97 mmol/L (98-107); Estimated GFR 85.10 (mL/min/1.73m2); Glucose 491 mg/dL (74-106); Potassium 4.2 mmol/L (3.5-5.1); Sodium 133 mmol/L (136-145); Total Protein 7.7 g/dL (6.4-8.2)
== END 2024-11-14 09:33 | disposition home or self-care (01) ==
LOC: SUR 09:32
PROVIDERS: Nurse Anesthetist, Certified Registered; PCP Family Medicine; Visit Provider Ophthalmology
DX: Z53.8 Procedure and treatment not carried out for other reasons (principal); R73.9 Hyperglycemia, unspecified
CPT/HCPCS: 36415; 80053; J2003

== ENCOUNTER 2024-11-14 11:45 | Emergency (ER) | payer MEDICARE, BC, SELFPAY ==
[2024-11-14 11:53] VITALS: BP 111/76; PULSE 98; RESP 14; TEMP 36.3; O2SAT 97
[2024-11-14 12:31] LABS: Abs Immature Grans 0.01 10^3/uL (0.0-0.06); BE (Venous) 4 mmol/L (-2-3); HCO3 (Venous) 30 mmol/L (23-28); HCT 44.3 % (40.0-50.0); HGB 15.4 g/dL (13.5-17.5); Immature Grans % 0.2 %; MCH 29.8 pg (27.0-33.0); MCHC 34.8 % (32.0-36.0); MCV 86 fL (80-95); MPV 10.3 fL (8.0-11.0); O2 Sat (Venous) 38 %; Platelet Count 198 10^3/uL (130-400); RBC 5.16 10^6/uL (4.36-5.78); RDW 12.3 % (11.8-14.1); RDW-SD 38.7 fL; TCO2 (Venous) 27 mmol/L (24-29); WBC 6.41 10^3/uL (4.4-10.8); pCO2 (Venous) 51 mmHg (41-51); pO2 (Venous) 23 mmHg
[2024-11-14 12:51] LABS: ALT 24 U/L (16-63); AST 15 U/L (15-37); Albumin 3.7 g/dL (3.4-5.0); Alkaline Phosphatase 92 U/L (46-116); Anion Gap 9.1 mmol/L (3-11); BUN 9 mg/dL (7-18); Bilirubin, Total 0.6 mg/dL (0.2-1.0); CO2 29.9 mmol/L (21.0-32.0); Calcium 9.4 mg/dL (8.5-10.1); Chloride 94 mmol/L (98-107); Estimated GFR 75.90 (mL/min/1.73m2); Glucose 462 mg/dL (74-106); Magnesium 1.6 mg/dL (1.8-2.4); Potassium 4.4 mmol/L (3.5-5.1); Sodium 133 mmol/L (136-145); Total Protein 7.8 g/dL (6.4-8.2)
[2024-11-14] MEDS: Magnesium Oxide 400 MG TAB 800 MG PO (13:05)
[2024-11-14] MEDS: metFORMIN 500 MG TAB 1000 MG PO (13:06)
[2024-11-14] MEDS: Normal Saline 1,000 ML 1000 ML IV (13:09)
[2024-11-14] MEDS: Insulin Aspart 100 UNITS/ML UNIT 18 UNITS SC (13:32)
--- NOTE | 2024-11-14 13:34 | W.ED.GENAD ---
Discharge Plan Disposition Patient Disposition: Home Condition: Stable Discharge Details Clinical Impression: Poorly controlled diabetes mellitus, Hypomagnesemia, Acute hyperglycemia, Noncompliance with medications Primary Care Provider: Franco Quick ED Provider: Jeff Cheema Home Meds and New Rx's Prescriptions: Continued (DME) FreeStyle Hao 2 Sensor Kit See Rx Instructions .ROUTE .MEDSUPPLY Qty: 1 11RF Rx Instructions: As directed, test TID and prn (DME) FreeStyle Hao 2 [place] Misc See Rx Instructions .ROUTE .MEDSUPPLY Qty: 1 0RF Rx Instructions: As directed, TID and prn (DME) diabetic shoes See Rx Instructions .Route .MEDSUPPLY Qty: 1 0RF Rx Instructions: As directed Santyl 250 unit/gram ointment 1 applic topical DAILY Qty: 90 0RF Rx Instructions: Ulcer measures 1.1 x 0.9 x 0.3 cm cholecalciferol (vitamin D3) 50 mcg (2,000 unit) capsule 50 mcg PO QHS Qty: 90 3RF pantoprazole 40 mg tablet,delayed release (DR/EC) 40 mg PO .before breakfast Qty: 90 3RF sertraline 50 mg tablet 50 mg PO DAILY Qty: 90 3RF tamsulosin 0.4 mg capsule 0.4 mg PO DAILY Qty: 90 3RF (DME) pen needle, diabetic 31 gauge x 5/16 needle See Rx Instructions .Route Rx Instructions: As directed (DME) blood-glucose meter [FreeStyle [place] Lite] Kit See Rx Instructions .Route Rx Instructions: As directed (DME) lancets [FreeStyle Lancets] 28 gauge misc See Rx Instructions .Route Rx Instructions: As directed acetaminophen 500 mg tablet 1,000 mg PO .Q8hrs Qty: 0 0RF magnesium hydroxide [Milk of Magnesia] 400 mg/5 mL suspension 5 ml PO DAILY PRN polyethylene glycol 3350 [ClearLax] 17 gram powder in packet 17 g PO QDAY PRN methocarbamol 500 mg tablet 500 mg PO Q8H PRN Qty: 90 3RF metformin 500 mg tablet 1,000 mg PO BIDWMEAL Qty: 180 3RF Rx Instructions: With breakfast and dinner atorvastatin 20 mg tablet 20 mg PO DAILY Qty: 90 3RF gabapentin 400 mg capsule 400 mg PO TID Qty: 60 0RF magnesium oxide 400 mg (241.3 mg magnesium) tablet 400 mg PO DAILY Qty: 90 3RF losartan 25 mg tablet 25 mg PO DAILY Qty: 90 3RF insulin aspart U-100 [Novolog FlexPen U-100 Insulin] 100 unit/mL (3 mL) insulin pen 18 unit subcut TID Qty: 15 3RF Rx Instructions: with meals insulin glargine [Lantus Solostar U-100 Insulin] 100 unit/mL (3 mL) insulin pen 55 unit subcut HS Qty: 15 0RF levothyroxine 112 mcg capsule 112 mcg PO DAILY Qty: 90 3RF apixaban 5 mg tablet 5 mg PO BID Qty: 180 3RF No Action blood glucose test stripts 1 ea XX DIRECTED PRN Discharge Instructions Instructions: Diabetes and diet, Why Taking Your Medicine or Drug as Ordered Is Important Additional Instructions: Please take your medications as prescribed. It is imperative that you take your diabetes medicine as prescribed, every day. Prescriptions were sent to [facility]. Please follow-up with your primary care physician. Please follow-up as soon as possible. Call today. Return to the emergency department immediately for any worsening or new concerning symptoms. Referrals: Franco Quick DO [Primary Care Provider, Medicine] HPI General Mode of arrival: ambulatory. Date/Time Provider Initiated Documentation: 11/14/24 12:21. Limitations to Documentation: no limitations. Information obtained by: patient. HPI Narrative: HISTORY OF PRESENT ILLNESS Patient presents with hyperglycemia preop for cataract surgery. He has been off diabetic medications for 6 weeks, consuming small amounts of leftover medication. He drank diet wyatt caridad prior to surgery. Patient has no other complaints. Related Data Home Medications ?Medication ?Instructions ?Recorded ?Confirmed blood glucose test stripts 1 ea XX DIRECTED PRN 10/15/23 11/14/24 blood-glucose meter (FreeStyle 10/15/23 11/14/24 [place] Lite kit) lancets 28 gauge (FreeStyle 10/15/23 11/14/24 Lancets) pen needle, diabetic 31 gauge x 10/15/23 11/14/24 5/16 flash glucose scanning reader #1 ea 10/25/23 11/14/24 (FreeStyle Hao 2 [place]) flash glucose sensor (FreeStyle #1 ea 10/25/23 11/14/24 Hao 2 Sensor kit) diabetic shoes #1 ea 02/28/24 11/14/24 collagenase clostridium histo. 250 1 applic topical DAILY #90 grams 03/19/24 11/14/24 unit/gram topical ointment (Santyl) magnesium hydroxide 400 mg/5 mL 5 ml PO DAILY PRN 07/10/24 11/14/24 oral suspension (Milk of Magnesia) polyethylene glycol 3350 17 gram 17 g PO QDAY PRN 07/10/24 11/14/24 oral powder packet (ClearLax) acetaminophen 500 mg tablet 1,000 mg (2 x 500 mg) PO .Q8hrs #0 08/05/24 11/14/24 tabs cholecalciferol (vitamin D3) 50 50 mcg PO QHS #90 caps 10/24/24 11/14/24 mcg (2,000 unit) capsule pantoprazole 40 mg tablet,delayed 40 mg PO .before breakfast #90 tabs 10/24/24 11/14/24 release sertraline 50 mg tablet 50 mg PO DAILY #90 tabs 10/24/24 11/14/24 tamsulosin 0.4 mg capsule 0.4 mg PO DAILY #90 caps 10/24/24 11/14/24 apixaban 5 mg tablet 5 mg PO BID #180 tabs 11/14/24 atorvastatin 20 mg tablet 20 mg PO DAILY #90 tabs 11/14/24 gabapentin 400 mg capsule 400 mg PO TID #60 caps 11/14/24 insulin aspart U-100 100 unit/mL 18 unit (0.18 mL) subcut TID #15 mL 11/14/24 (3 mL) subcutaneous pen (Novolog FlexPen U-100 Insulin aspart) insulin glargine 100 unit/mL (3 55 unit (0.55 mL) subcut HS #15 mL 11/14/24 mL) subcutaneous pen (Lantus Solostar U-100 Insulin) levothyroxine 112 mcg capsule 112 mcg PO DAILY #90 caps 11/14/24 losartan 25 mg tablet 25 mg PO DAILY #90 tabs 11/14/24 magnesium oxide 400 mg (241.3 mg 400 mg PO DAILY #90 tabs 11/14/24 magnesium) tablet metformin 500 mg tablet 1,000 mg (2 x 500 mg) PO BIDWMEAL 11/14/24 #180 tabs methocarbamol 500 mg tablet 500 mg PO Q8H PRN Pain or muscle 11/14/24 spasms #90 tabs Previous Rx's ?Medication ?Instructions ?Recorded flash glucose scanning reader #1 ea 10/25/23 (FreeStyle Hao 2 [place]) flash glucose sensor (FreeStyle #1 ea 10/25/23 Hao 2 Sensor kit) diabetic shoes #1 ea 02/28/24 collagenase clostridium histo. 250 1 applic topical DAILY #90 grams 03/19/24 unit/gram topical ointment (Santyl) acetaminophen 500 mg tablet 1,000 mg (2 x 500 mg) PO .Q8hrs #0 08/05/24 tabs cholecalciferol (vitamin D3) 50 50 mcg PO QHS #90 caps 10/24/24 mcg (2,000 unit) capsule pantoprazole 40 mg tablet,delayed 40 mg PO .before breakfast #90 tabs 10/24/24 release sertraline 50 mg tablet 50 mg PO DAILY #90 tabs 10/24/24 tamsulosin 0.4 mg capsule 0.4 mg PO DAILY #90 caps 10/24/24 apixaban 5 mg tablet 5 mg PO BID #180 tabs 11/14/24 atorvastatin 20 mg tablet 20 mg PO DAILY #90 tabs 11/14/24 gabapentin 400 mg capsule 400 mg PO TID #60 caps 11/14/24 insulin aspart U-100 100 unit/mL 18 unit (0.18 mL) subcut TID #15 mL 11/14/24 (3 mL) subcutaneous pen (Novolog FlexPen U-100 Insulin aspart) insulin glargine 100 unit/mL (3 55 unit (0.55 mL) subcut HS #15 mL 11/14/24 mL) subcutaneous pen (Lantus Solostar U-100 Insulin) levothyroxine 112 mcg capsule 112 mcg PO DAILY #90 caps 11/14/24 losartan 25 mg tablet 25 mg PO DAILY #90 tabs 11/14/24 magnesium oxide 400 mg (241.3 mg 400 mg PO DAILY #90 tabs 11/14/24 magnesium) tablet metformin 500 mg tablet 1,000 mg (2 x 500 mg) PO BIDWMEAL 11/14/24 #180 tabs methocarbamol 500 mg tablet 500 mg PO Q8H PRN Pain or muscle 11/14/24 spasms #90 tabs Allergies Allergy/AdvReac Type Severity Reaction Status Date / Time No Known Allergies Allergy Verified 11/14/24 12:02 General Stated Complaint: Diabetes FARHANA: 3 Review of Systems All systems reviewed & are unremarkable except as noted in HPI and below Constitutional Constitutional: Denies fever(s) Exam Const General: cooperative and no acute distress [facility] Mouth: moist mucous membranes Eyes Conjunctivae: normal conjunctivae Sclera: normal sclerae Resp Auscultation: clear to auscultation bilaterally, no rales, no rhonchi and no wheezes Cardio Rate: regular rate and not tachycardic Rhythm: regular rhythm GI Palpation: soft, not firm, no guarding, no masses, not rigid and nontender Skin General skin exam: no rashes or lesions noted Neuro General: patient alert, patient awake, patient oriented x3 and tone normal Extrem General: no edema Course Vital Signs Vital signs: Vital Signs Temperature 36.3 C L 11/14/24 11:53 Pulse 98 H 11/14/24 11:53 Respiratory Rate 14 11/14/24 11:53 Blood Pressure 111/76 11/14/24 11:53 Pulse Oximetry 97 11/14/24 11:53 Temperature 36.3 C L 11/14/24 11:53 Temperature Source Oral 11/14/24 11:53 Pulse 98 H 11/14/24 11:53 Respiratory Rate 14 11/14/24 11:53 Blood Pressure 111/76 11/14/24 11:53 Blood Pressure Position Sitting 11/14/24 11:53 Pulse Oximetry 97 11/14/24 11:53 Oxygen Delivery Method Room Air 11/14/24 11:53 Oxygen Flow Rate 0 11/14/24 11:53 Lab/Test Results Lab/Test Results: Laboratory Tests Range/Units 11/14/24 12:25 WBC (4.4-10.8) 10^3/uL 6.41 RBC (4.36-5.78) 10^6/uL 5.16 Hgb (13.5-17.5) g/dL 15.4 Hct (40.0-50.0) % 44.3 MCV (80-95) fL 86 MCH (27.0-33.0) pg 29.8 MCHC (32.0-36.0) % 34.8 RDW (11.8-14.1) % 12.3 Plt Count (130-400) 10^3/uL 198 MPV (8.0-11.0) fL 10.3 Immature Gran % % 0.2 Neutrophils % % 65.7 Lymphocytes % % 25.7 Monocytes % % 6.7 Eosinophils % % 1.1 Basophils % % 0.6 Nucleated RBC % (0.0-0.3) % 0.0 Absolute Neutrophils (1.2-6.7) 10^3/uL 4.21 Absolute Lymphocytes (1.2-3.4) 10^3/uL 1.65 Absolute Monocytes (0.1-0.8) 10^3/uL 0.43 Absolute Eosinophils (0.0-0.7) 10^3/uL 0.07 Absolute Basophils (0.0-0.2) 10^3/uL 0.04 VBG pH (7.31-7.41) 7.37 VBG pCO2 (41-51) mmHg 51 VBG pO2 mmHg 23 VBG HCO3 (23-28) mmol/L 30 H VBG Total CO2 (24-29) mmol/L 27 VBG O2 Saturation % 38 VBG Base Excess (-2-3) mmol/L 4 H Sodium (136-145) mmol/L 133 L Potassium (3.5-5.1) mmol/L 4.4 Chloride (98-107) mmol/L 94 L Carbon Dioxide (21.0-32.0) mmol/L 29.9 Anion Gap (3-11) mmol/L 9.1 BUN (7-18) mg/dL 9 Creatinine (0.70-1.30) mg/dL 1.1 Est GFR (CKD-EPI 2020) (mL/min/1.73m2) 75.90 Glucose (74-106) mg/dL 462 H Calcium (8.5-10.1) mg/dL 9.4 Magnesium (1.8-2.4) mg/dL 1.6 L Total Bilirubin (0.2-1.0) mg/dL 0.6 AST (15-37) U/L 15 ALT (16-63) U/L 24 Alkaline Phosphatase (46-116) U/L 92 Total Protein (6.4-8.2) g/dL 7.8 Albumin (3.4-5.0) g/dL 3.7 Medical Decision Making ASSESSMENT AND PLAN 63-year-old male with diabetes, noncompliant with diabetic meds 4 weeks, found to be hyperglycemic preoperatively by anesthesia, sent for further evaluation and treatment. Fingerstick glucose elevated elevated >400. Differential diagnosis includes diabetic ketoacidosis versus hyperglycemia with noncompliance. Labs reviewed and consistent with hyperglycemia. No acidosis. Hypomagnesemia noted. Patient was given magnesium oxide. Patient was given crystalloid 1 L bolus. His NovoLog was administered as prescribed. His metformin was administered as prescribed. Repeat fingerstick improved. Patient tolerating oral fluids. Attempted to contact PCP and office was closed. Patient notes difficulty securing prescriptions from [facility]. He does note he is able to pickle processor his prescriptions from [facility]. All medication prescriptions were sent to [facility]. Patient reassessed and stable. Requesting discharge. All results were discussed with the patient. Usual and customary discharge instructions were reviewed. Lab Data Lab results reviewed: Yes I reviewed the patient's lab results. Labs: Laboratory Tests Range/Units 11/14/24 11/14/24 12:25 13:43 WBC (4.4-10.8) 10^3/uL 6.41 RBC (4.36-5.78) 10^6/uL 5.16 Hgb (13.5-17.5) g/dL 15.4 Hct (40.0-50.0) % 44.3 MCV (80-95) fL 86 MCH (27.0-33.0) pg 29.8 MCHC (32.0-36.0) % 34.8 RDW (11.8-14.1) % 12.3 Plt Count (130-400) 10^3/uL 198 MPV (8.0-11.0) fL 10.3 Immature Gran % % 0.2 Neutrophils % % 65.7 Lymphocytes % % 25.7 Monocytes % % 6.7 Eosinophils % % 1.1 Basophils % % 0.6 Nucleated RBC % (0.0-0.3) % 0.0 Absolute Neutrophils (1.2-6.7) 10^3/uL 4.21 Absolute Lymphocytes (1.2-3.4) 10^3/uL 1.65 Absolute Monocytes (0.1-0.8) 10^3/uL 0.43 Absolute Eosinophils (0.0-0.7) 10^3/uL 0.07 Absolute Basophils (0.0-0.2) 10^3/uL 0.04 VBG pH (7.31-7.41) 7.37 VBG pCO2 (41-51) mmHg 51 VBG pO2 mmHg 23 VBG HCO3 (23-28) mmol/L 30 H VBG Total CO2 (24-29) mmol/L 27 VBG O2 Saturation % 38 VBG Base Excess (-2-3) mmol/L 4 H Sodium (136-145) mmol/L 133 L Potassium (3.5-5.1) mmol/L 4.4 Chloride (98-107) mmol/L 94 L Carbon Dioxide (21.0-32.0) mmol/L 29.9 Anion Gap (3-11) mmol/L 9.1 BUN (7-18) mg/dL 9 Creatinine (0.70-1.30) mg/dL 1.1 Est GFR (CKD-EPI 2020) (mL/min/1.73m2) 75.90 Glucose (74-106) mg/dL 462 H Calcium (8.5-10.1) mg/dL 9.4 Magnesium (1.8-2.4) mg/dL 1.6 L Total Bilirubin (0.2-1.0) mg/dL 0.6 AST (15-37) U/L 15 ALT (16-63) U/L 24 Alkaline Phosphatase (46-116) U/L 92 Total Protein (6.4-8.2) g/dL 7.8 Albumin (3.4-5.0) g/dL 3.7 Urine Color (Yellow) Yellow Urine Clarity (Clear) Clear Urine pH (5-8) 5.5 Ur Specific [place] (1.005-1.025) 1.010 Urine Protein (Neg-Trace) mg/dL 100 H Urine Ketones (Negative) mg/dL Trace H Urine Blood (Negative) Negative Urine Nitrite (Negative) Negative Urine Bilirubin (Negative) Negative Urine Urobilinogen (Up to 0.2) mg/dL 0.2 Ur Leukocyte Esterase (Negative) Negative Urine RBC (0-2) HPF 0-2 Urine WBC (0-5) HPF Negative Ur Epithelial Cells (Negative) HPF Negative Urine Crystals (Negative) HPF Negative Urine Bacteria (Negative) HPF Rare Urine Casts (Negative) LPF Negative Urine Mucus (Negative) Negative Ur Culture Indicated? No Urine Glucose (Negative) mg/dL 500 H Quality:SDOH Health Related Social Needs: Health related social needs material hardship Health related social needs details Noted PFSH All Active Problems Noncompliance with medications (Acute) Acute hyperglycemia (Acute) Hypomagnesemia (Acute) Poorly controlled diabetes mellitus (Acute) Posterior subcapsular age-related cataract of left eye (Acute) Nuclear age-related cataract, left eye (Acute) Wound of left foot (Acute) Abscess of popliteal region (Acute) HTN (hypertension) (Chronic) Chronic pain (Chronic) Non-healing ulcer of left foot (Acute) Uncontrolled diabetes mellitus with hyperglycemia (Acute) Edema (Acute) Venous (peripheral) insufficiency (Acute) Atherosclerotic PVD with ulceration (Acute) PAD (peripheral artery disease) (Chronic) Diabetic foot ulcer (Acute) Erectile dysfunction (Acute) Phantom pain following amputation of lower limb (Acute) Type 2 diabetes mellitus with diabetic polyneuropathy, with long-term current use of insulin (Chronic) Memory loss due to medical condition (Acute) Craniopharyngioma (Acute) Chronic osteomyelitis involving right ankle and foot (Acute) Recurrent falls (Acute) Other chronic pain (Acute) Hypothyroidism (Chronic) Hyperplastic polyp of descending colon (Acute) Gastroesophageal reflux disease with esophagitis and hemorrhage (Acute) Gait instability (Acute) Failure to thrive in adult (Acute) Chronic deep vein thrombosis (DVT) (Chronic) Deep vein thrombosis (DVT) of proximal vein of left lower extremity (Acute) Benign prostatic hyperplasia (Chronic) Anemia (Chronic) Adjustment disorder with mixed anxiety and depressed mood (Chronic) Medical History Abscess of popliteal region Chronic ulcer of left foot Per pt. 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 Family History Mother Alcohol use disorder Substance use disorder Father Alcohol use disorder Substance use disorder Cancer Social History Smoking/Tobacco Use Status: Former Tobacco Use tobacco type: smokeless tobacco Quit Date: 03/05/20 Tobacco: How many years used: 30 Smokeless tobacco user: snuff Second Hand Exposure: Yes Smoking risk assessment performed?: Yes Alcohol Intake: never Drug use: Rarely Substance use type: marijuana Details: consumes THC gummies Adopted: No Caregiver/Support person: No Foster care: No Household members: none Housing: apartment Number of Children: 2 number of grandchildren: 1 Communication Needs: None Education Level: high school Do you need help understanding health information?: Rarely current occupation: None Pets and animals: No Sexually active: No Do you think of yourself as: straight/heterosexual Current gender identity: male What is your relationship status?: How often do you talk on the phone with friends or family?: twice per week Do you belong to any clubs or organized social groups?: no Panel score (0-1 are the most socially isolated patients): 0 What type of physical activity do you participate in: additional Details: PT Excercises 2-3 times day Duration: 45-60 minutes/day Frequency: daily Lena/Lutheran: Yarsanism Special lena needs: No Seatbelt use: always Helmet use: No (Never) Drive intox or ride w/intox tractor driver: No Do you feel safe at home: Yes Do you feel safe in your relationship?: Yes Additional Social history: live alone
[2024-11-14 13:59] LABS: Glucose 500 mg/dL (Negative)
[2024-11-14 14:21] LABS: C & S Indicated? No; RBC 0-2 HPF (0-2); WBC Negative HPF (0-5)
[2024-11-14 14:30] VITALS: BP 124/75; PULSE 85; RESP 16; O2SAT 98
[2024-11-14 15:17] VITALS: BP 111/65; PULSE 84; O2SAT 99
== END 2024-11-14 15:54 | disposition home or self-care (01) ==
PROVIDERS: Emergency Provider Student in an Organized Health Care Education/Training Program; PCP Family Medicine
DX: E11.65 Type 2 diabetes mellitus with hyperglycemia (principal); E83.42 Hypomagnesemia; Z91.148 Patient's other noncompliance with medication regimen for other reason; Z59.87 Material hardship due to limited financial resources, not elsewhere classified
CPT/HCPCS: 36415; 36416; 80053; 82805; 82962; 96360; 99284; 81003; 81015; 83735; 85025; J1815